=== PATIENT | male | born 1965 | race Caucasian/White ===

== ENCOUNTER 2018-04-30 09:19 | Outpatient (REF) | payer BC, SELFPAY ==
[2018-04-30 18:52] LABS: TSH (W/Ref FT4) 0.22 uIU/mL (0.358-3.74)
[2018-04-30 19:14] LABS: FREE T4 1.44 ng/dL (0.76-1.46)
== END 2018-04-30 09:20 ==
LOC: NCHCN 09:19
PROVIDERS: PCP Family Medicine; Visit Provider Family Medicine
DX: E03.9 Hypothyroidism, unspecified (principal)
CPT/HCPCS: 84439; 84443

== ENCOUNTER 2018-08-14 09:17 | Outpatient (CLI) | payer BC, SELFPAY ==
[2018-08-14 10:55] LABS: HCT 41.9 % (40.0-50.0); HGB 14.1 g/dL (13.5-17.5); Mean Corp. HGB Concentration 33.7 g/dL (32.0-36.0); Mean Corpuscular Volume 92.1 fL (80-95); Mean Platelet Volume 10.3 fL (8.0-11.0); Platelet Count 244 x1000/uL (130-400); RBC 4.55 m/cumm (4.50-6.00); RBC Distribution Width 13.7 % (11.8-14.1); White Blood Cell Count 7.05 k/cumm (4.4-10.8)
[2018-08-14 10:58] LABS: Bilirubin Negative (Negative); Blood Negative (Negative); Clarity Clear; Glucose Negative (Negative); Ketones Negative (Negative); Leukocyte Esterase Negative (Negative); Nitrite Negative (Negative); Urobilinogen 0.2 EU/dL (Up TO 0.2); pH 6.5 (5-8)
[2018-08-14 11:42] LABS: Cholesterol 167 mg/dL (50-200)
[2018-08-14 11:44] LABS: ALT 38 U/L (12-78); AST 22 U/L (15-37); Albumin 4.2 g/dL (3.4-5.0); Alkaline Phosphatase 104 U/L (46-116); Anion Gap 6.4 mmol/L (3-11); BUN 21 mg/dL (7-18); Bilirubin, Total 0.9 mg/dL (0.2-1.0); CO2 29.6 mmol/L (21.0-32.0); CREATININE 1.22 mg/dL (0.70-1.30); Calcium 9.4 mg/dL (8.5-10.1); Chloride 98 mmol/L (98-107); Glucose 106 mg/dL (70-100); Magnesium 1.6 mg/dL (1.8-2.4); Sodium 134 mmol/L (136-145); Total Protein 7.6 g/dL (6.4-8.2)
[2018-08-14 11:55] LABS: PHOSPHORUS 3.6 mg/dL (2.6-4.7); Uric Acid 5.7 mg/dL (3.5-7.2)
[2018-08-15 11:16] LABS: PROTEIN < 6.0 mg/dL
[2018-08-15 11:18] LABS: COMMENT (LAB VIEW ONLY) 63.54 mg/dL
[2018-08-16 13:20] LABS: Tacrolimus 7.6 ng/ml
== END 2018-08-14 09:37 ==
PROVIDERS: PCP Family Medicine; Visit Provider Internal Medicine Nephrology
DX: Z29.8 Encounter for other specified prophylactic measures (principal); Z94.0 Kidney transplant status; Z79.899 Other long term (current) drug therapy
CPT/HCPCS: 36415; 80053; 85027; 80197; 81003; 82465; 82565; 83735; 84100; 84156; 84550

== ENCOUNTER 2018-10-28 02:22 | Outpatient (CLI) | payer BC, SELFPAY ==
--- NOTE | 2018-10-28 10:00 | PFT_ITS ---
DATE OF SERVICE: 10/28/18 REQUESTING PROVIDER: Anna Mullen M.D. Spirometry shows no evidence of obstructive airways disease, no bronchodilator response. Lung volumes show no evidence of restriction. Diffusion capacity normal. Airways resistance normal. IMPRESSION: Normal pulmonary function study. Clinical correlation recommended. METHYLCHOLINE CHALLENGE TEST REPORT DATE OF SERVICE: 10/28/18 Good patient effort. After normal spirometry, methylcholine challenge testing was carried out up to a methylcholine concentration of 1 mg per mL. At that point, the patient had a 20% drop in FEV1. IMPRESSION: This is a strongly positive methylcholine challenge test. Clinical correlation recommended.
--- NOTE | 2018-10-28 11:30 | PFT_ITS ---
METHYLCHOLINE CHALLENGE TEST REPORT DATE OF SERVICE: 10/28/18 Good patient effort. After normal spirometry, methylcholine challenge testing was carried out up to a methylcholine concentration of 1 mg per mL. At that point, the patient had a 20% drop in FEV1. IMPRESSION: This is a strongly positive methylcholine challenge test. Clinical correlation recommended.
[2018-10-28] MEDS: Inhaler, Assist Device 1 EACH MC (14:49)
[2018-10-28] MEDS: Albuterol HFA 18 GM 200 PUFF INH IH (14:49)
[2018-10-28] MEDS: Methacholine 100 MG VIAL IH (14:49)
== END 2018-10-28 02:42 ==
PROVIDERS: PCP Family Medicine; Visit Provider Family Medicine
DX: R06.09 Other forms of dyspnea (principal)
CPT/HCPCS: 94060; 94150; 94726; 94729; 95070; 94010; J7674

== ENCOUNTER 2018-12-11 08:20 | Outpatient (CLI) | payer BC, SELFPAY ==
[2018-12-11 10:13] LABS: HCT 41.8 % (40.0-50.0); HGB 14.4 g/dL (13.5-17.5); Mean Corp. HGB Concentration 34.4 g/dL (32.0-36.0); Mean Corpuscular Hemoglobin 30.8 pg (27.0-33.0); Mean Corpuscular Volume 89.3 fL (80-95); Mean Platelet Volume 10.4 fL (8.0-11.0); Platelet Count 235 x1000/uL (130-400); RBC 4.68 m/cumm (4.50-6.00); RBC Distribution Width 13.3 % (11.8-14.1)
[2018-12-11 10:57] LABS: ALT 36 U/L (12-78); AST 23 U/L (15-37); Albumin 3.9 g/dL (3.4-5.0); Alkaline Phosphatase 117 U/L (46-116); Amylase 48 U/L (25-115); Anion Gap 9.3 mmol/L (3-11); BUN 17 mg/dL (7-18); Bilirubin, Total 0.9 mg/dL (0.2-1.0); CO2 26.7 mmol/L (21.0-32.0); CREATININE 1.07 mg/dL (0.70-1.30); Chloride 99 mmol/L (98-107); Glucose 109 mg/dL (70-100); Lipase 84 U/L (73-393); Magnesium 1.6 mg/dL (1.8-2.4); PHOSPHORUS 3.5 mg/dL (2.6-4.7); Potassium 5.1 mmol/L (3.5-5.1); Sodium 135 mmol/L (136-145); Total Protein 7.3 g/dL (6.4-8.2); Uric Acid 5.9 mg/dL (3.5-7.2)
[2018-12-11 11:06] LABS: Bilirubin Negative (Negative); Blood Negative (Negative); Clarity Clear; Glucose Negative (Negative); Ketones Negative (Negative); Leukocyte Esterase Negative (Negative); Nitrite Negative (Negative); Specific Gravity 1.015 (1.005-1.025); pH 6.5 (5-8)
[2018-12-11 11:27] LABS: Cholesterol 162 mg/dL (50-200); Triglyceride 94 mg/dL (30-150)
[2018-12-12 10:18] LABS: Hemoglobin A1C 5.8 % (4.5-6.2)
[2018-12-12 13:50] LABS: PROTEIN < 6.0 mg/dL
[2018-12-12 14:15] LABS: COMMENT (LAB VIEW ONLY) 46.78 mg/dL
[2018-12-13 14:26] LABS: Tacrolimus 7.7 ng/ml
== END 2018-12-11 08:40 ==
PROVIDERS: PCP Family Medicine; Visit Provider Internal Medicine Nephrology
DX: R55 Syncope and collapse (principal); E03.9 Hypothyroidism, unspecified; I10 Essential (primary) hypertension; Z29.8 Encounter for other specified prophylactic measures; Z94.83 Pancreas transplant status; Z79.899 Other long term (current) drug therapy
CPT/HCPCS: 36415; 80053; 83690; 85027; 80197; 81003; 82150; 82465; 82565; 83036; 83735; 84100; 84156; 84439; 84443; 84478; 84550

== ENCOUNTER 2018-12-20 00:20 | Outpatient (CLI) | payer BC, SELFPAY ==
--- NOTE | 2018-12-20 08:18 | DI.MRI_ITS ---
SYMPTOMS/DIAGNOSIS: SHOULDER PAIN, M25.511 MRI OF THE RIGHT SHOULDER: The only plain films available are a chest x-ray from 2017. The exam is limited by claustrophobia. Proton density and fat-suppressed T2 axial and fat- suppressed T2 coronal sequences were performed. The patient was unable to continue with the exam. There is fluid seen in the glenohumeral joint, as well as in the subcoracoid bursa. There is lateral downsloping of the acromion. There is thickening of the supraspinatus tendon throughout, suspicious for severe tendinitis versus partial tear. The upper biceps tendon appears severely thickened. There is also an apparent disruption of the biceps tendon in the region of the bicipital groove. The infraspinatus, subscapularis and teres minor tendons appear intact. There are degenerative changes of the superior labrum. IMPRESSION: 1. Tear of the long head of the biceps tendon with disruption over several centimeters. 2. Marked thickening of the supraspinatus tendon without evidence of a full-thickness tear. 3. Joint effusion.
== END 2018-12-20 00:40 ==
PROVIDERS: PCP Family Medicine; Visit Provider Specialist/Technologist Athletic Trainer
DX: M25.511 Pain in right shoulder (principal); S46.211A Strain of muscle, fascia and tendon of other parts of biceps, right arm, initial encounter; M25.411 Effusion, right shoulder
CPT/HCPCS: 73221

== ENCOUNTER 2018-12-27 21:07 | Emergency (ER) | payer BC, SELFPAY ==
[2018-12-27] VITALS (7 sets, daily range): BP systolic 134–166; BP diastolic 80–89; PULSE 72–76; RESP 15–25; TEMP 36.5–37; O2SAT 96–98
--- NOTE | 2018-12-27 21:21 | W.ED.GENAD ---
Discharge Plan Disposition Patient Disposition: HOME Condition: Stable Discharge Details Chief Complaint: Chest Pain Clinical Impression: Chest pain Primary Care Provider: Anna Mullen V ED Provider: Eriberto Esparza Home Meds and New Rx's Prescriptions: No Action lidocaine [Lidoderm] 5 % adhesive patch,medicated 1 patch TP DAILY RF: 0 valacyclovir 1 gram tablet 2,000 mg PO BID RF: 0 polyethylene glycol 3350 [Miralax] 17 gram/dose powder 17 gm PO DAILY RF: 0 omega-3 fatty acids [Fish Oil Concentrate] 1,000 mg capsule 1,000 mg PO DAILY RF: 0 multivitamin [Daily Multi-Vitamin] 1 EACH tablet 1 ea PO DAILY RF: 0 levothyroxine 175 MCG tablet 150 mcg PO DAILY RF: 0 mycophenolate mofetil [CellCept] 250 MG capsule 250 mg PO 2 CAPS BID RF: 0 aspirin [Aspirin Low-Strength] 81 MG tablet,chewable 81 mg PO DAILY RF: 0 trazodone 50 MG tablet 50 mg PO HS RF: 0 magnesium gluconate 27 MG tablet 27 mg PO DAILY RF: 0 tacrolimus [Prograf] 1 MG capsule 2 mg PO BID RF: 0 venlafaxine 150 MG tablet extended release 24hr 150 mg PO DAILY RF: 0 lisinopril 20 mg tablet 30 mg PO DAILY RF: 0 pantoprazole 40 MG tablet,delayed release (DR/EC) 40 mg PO BID RF: 0 gabapentin 300 MG capsule 300 mg PO QAM RF: 0 gabapentin 300 MG capsule 600 mg PO HS RF: 0 ondansetron 4 MG tablet,disintegrating 4 mg PO Q6H PRN PRN (Reason: Nausea / Vomiting) Qty: 20 RF: 0 acetaminophen [Tylenol] 325 MG tablet 650 mg PO Q4H PRN PRNRF: 0 albuterol sulfate 2.5 MG/3 ML solution for nebulization 2.5 mg UPD Q2H PRN PRNRF: 0 polyethylene glycol 3350 17 GM powder in packet 17 gm PO DAILY PRN PRN (Reason: Constipation) RF: 0 acyclovir sodium 500 MG solution 1,000 mg IVPB Q8H RF: 0 doxycycline hyclate [Doxy-100] 100 MG recon soln 100 mg IVPB Q12H RF: 0 benzonatate 100 MG capsule 100 mg PO TID PRNRF: 0 promethazine 25 MG/ML solution 25 mg IVPB Q4H PRN PRNRF: 0 docusate sodium [Colace] 100 MG capsule 100 mg PO TID PRN PRNRF: 0 ceftriaxone in dextrose,iso-os 2 GM/50 ML piggyback 2 gm IVPB HS RF: 0 IV Access 1 EACH Device 1 ea IV DIRECTED RF: 0 Discharge Instructions Instructions: Chest Pain (ED) Additional Instructions: Your lab work and ct did not show any concerning findings follow up as scheduled with cardiology if you have severe worsening symptoms, persistent vomit or feel more ill return to the emergency department Medical Decision Making 53 yo male with hx of HTN, DM, pancreas transplant who comes in with complaints of stabbing anterior sharp chest pain that has now resolved. HAs also had months of shortness of breath, had PFT's done a few months ago which were normal. He states he was at home when he started to have anterior sharp chest pain, denies any pain now. Denies n/v or shortness of breath. ECG normal here, will send troponin. Heart score is 3. Given his shortness of breath, wells score moderate as Pe as likely as other diagnoses, will obtian CTA. no tearing back pain so doubt dissection pt's labs unremarkable, cta negative. given low heart score feel he is stable for out patient management and had pain over 3 hours so do not feel repeat testing indicated. Advised f/u with pcp and he states he has an appt with cardiology next week, return precautions iven Differential Diagnosis acs, PE, dissection Medical Records Medical records reviewed: Yes I reviewed the patient's medical records. Imaging Data Radiologic Study: Attestation: I personally reviewed and interpreted this imaging study as follows: Imaging: CT Scan Radiologist's impression: IMPRESSION: No acute findings. Lab Data Lab results reviewed: Yes I reviewed the patient's lab results. ECG Data Attestation: I personally reviewed and interpreted this ECG (s) as follows: Prior ECG tracings: not available for review Interpretation: sinus rhythm, rate of 72, pr 190, no acute st twave ischemic findings HPI General Mode of arrival: EMS. Date/Time Provider Initiated Documentation: 12/27/18 21:10. Limitations to Documentation: no limitations. Information obtained by: patient. History of Present Illness 53 year old M presents to the emergency department with the chief complaint of chest pain, described as moderate, Quality is described as stabbing, and is localized to the chest. and it has been now resolved. No relieving factors improve symptom(s), No exacerbating factors reported . Patient notes no other symptoms.. Patient did receive the following treatments prior to arrival, none Related Data Home Medications Medication Instructions Recorded Confirmed aspirin [Aspirin Low-Strength] 81 mg PO DAILY tab-cap 08/21/14 10/12/17 levothyroxine 150 mcg PO DAILY tab-cap 08/21/14 10/12/17 multivitamin [Daily Multi-Vitamin] 1 ea PO DAILY 08/21/14 10/12/17 mycophenolate mofetil [CellCept] 250 mg PO 2 CAPS BID tab-cap 08/21/14 10/12/17 magnesium gluconate 27 mg PO DAILY 10/12/14 10/12/17 trazodone 50 mg PO HS tab-cap 10/12/14 10/12/17 gabapentin 300 mg PO QAM 05/15/16 10/12/17 pantoprazole 40 mg PO BID 05/15/16 10/12/17 tacrolimus [Prograf] 2 mg PO BID 07/22/17 10/12/17 venlafaxine 150 mg PO DAILY tab-cap 07/22/17 10/12/17 IV Access 1 ea IV DIRECTED device 07/31/17 10/12/17 acetaminophen [Tylenol] 650 mg PO Q4H PRN PRN tab 07/31/17 10/12/17 acyclovir sodium 1,000 mg IVPB Q8H vial 07/31/17 10/12/17 albuterol sulfate 2.5 mg UPD Q2H PRN PRN vial 07/31/17 10/12/17 benzonatate 100 mg PO TID PRN cap 07/31/17 10/12/17 ceftriaxone in dextrose,iso-os 2 gm IVPB HS bag 07/31/17 10/12/17 docusate sodium [Colace] 100 mg PO TID PRN PRN cap 07/31/17 10/12/17 doxycycline hyclate [Doxy-100] 100 mg IVPB Q12H vial 07/31/17 10/12/17 polyethylene glycol 3350 17 gm PO DAILY PRN PRN packet 07/31/17 10/12/17 promethazine 25 mg IVPB Q4H PRN PRN vial 07/31/17 10/12/17 gabapentin 600 mg PO HS 10/12/17 10/12/17 ondansetron 4 mg PO Q6H PRN PRN #20 tab.rapdis 10/12/17 lidocaine 5 % topical patch 1 patch TP DAILY 10/18/18 10/18/18 lisinopril 20 mg tablet 30 mg PO DAILY tab-cap 10/18/18 10/18/18 omega-3 fatty acids 1,000 mg 1,000 mg PO DAILY 10/18/18 10/18/18 capsule polyethylene glycol 3350 17 17 gm PO DAILY 10/18/18 10/18/18 gram/dose oral powder valacyclovir 1 gram tablet 2,000 mg PO BID tab 10/18/18 10/18/18 Previous Rx's Medication Instructions Recorded IV Access 1 ea IV DIRECTED device 07/31/17 acetaminophen [Tylenol] 650 mg PO Q4H PRN PRN tab 07/31/17 acyclovir sodium 1,000 mg IVPB Q8H vial 07/31/17 albuterol sulfate 2.5 mg UPD Q2H PRN PRN vial 07/31/17 benzonatate 100 mg PO TID PRN cap 07/31/17 ceftriaxone in dextrose,iso-os 2 gm IVPB HS bag 07/31/17 docusate sodium [Colace] 100 mg PO TID PRN PRN cap 07/31/17 doxycycline hyclate [Doxy-100] 100 mg IVPB Q12H vial 07/31/17 polyethylene glycol 3350 17 gm PO DAILY PRN PRN packet 07/31/17 promethazine 25 mg IVPB Q4H PRN PRN vial 07/31/17 ondansetron 4 mg PO Q6H PRN PRN #20 tab.rapdis 10/12/17 Allergies Allergy/AdvReac Type Severity Reaction Status Date / Time metoclopramide HCl Allergy Intermediate TARDIIVE Unverified 10/12/17 06:23 [From Reglan] DYSKINESIA oxycodone HCl [From Percocet] Allergy Intermediate Unverified 10/12/17 06:23 simvastatin [From Zocor] Allergy Intermediate MYOCLONUS Unverified 10/12/17 06:23 esomeprazole magnesium AdvReac Diarrhea Unverified 10/12/17 06:23 [From Nexium] DIMOTROPE Allergy Mild Uncoded 10/12/17 06:23 ORNADE DIMOTROPE Allergy Unknown Uncoded 10/12/17 06:23 General Stated Complaint: Chest Pain ROBIN: 2 Review of Systems Review of Systems All systems reviewed & are unremarkable except as noted in HPI and below Constitutional Denies chills, Denies fever(s) and Denies weakness ENT Denies change in voice Cardiovascular Denies dyspnea Respiratory Denies cough and Denies dyspnea Gastrointestinal Denies abdominal pain, Denies nausea and Denies vomiting Genitourinary Denies dysuria Musculoskeletal Denies joint swelling Integumentary/Breasts Denies rash Neurologic Denies weakness [facility] Medical History Dizziness (Acute) Lumbar back pain (Acute) Right shoulder pain (Acute) Dyspnea on exertion (Chronic) Gastroparesis (Chronic) Hernia (Chronic) Left hemiparesis (Chronic) Depression HTN (hypertension) History of CVA (cerebrovascular accident) History of diabetes mellitus Hypothyroidism (acquired) Migraine Pancreas transplanted Surgical History History of pancreas transplant (Resolved) Social History Smoking/Tobacco Use Status: Never Alcohol Intake: never Drug use: Never Substance use type: does not use Do you feel safe in your relationship?: Yes Exam Const General: no acute distress Orientation: alert HENFL Head: normal to inspection Ears: external ears normal General nose exam: external nose normal Mouth: moist mucous membranes Eyes General: appearance normal, both eyes and all related structures Neck Neck: normal visual inspection Resp Effort & Inspection: normal respiratory effort and able to speak in complete sentences Cardio Rate: regular rate Skin General skin exam: no rashes or lesions noted Neuro General: alert and oriented x3 Extrem General: normal to inspection Psych Mental Status: mental status grossly normal Course Vital Signs Temperature 37.0 C 12/27/18 21:11 Pulse 72 12/27/18 21:11 Respiratory Rate 12/27/18 21:11 Blood Pressure 166/89 H 12/27/18 21:11 Pulse Oximetry 98 12/27/18 21:11 Temperature 37.0 C 12/27/18 21:11 Pulse 72 12/27/18 21:11 Respiratory Rate 12/27/18 21:11 Respiratory Effort 12/27/18 21:16 Blood Pressure 166/89 H 12/27/18 21:11 Blood Pressure Position Sitting 12/27/18 21:11 Pulse Oximetry 98 12/27/18 21:11 Oxygen Delivery Method Room Air 12/27/18 21:11 Oxygen Flow Rate 0 12/27/18 21:11 Pain Level 0 12/27/18 21:11
[2018-12-27 21:26] LABS: Abs Immature Grans 0.03 k/cumm (0.0-0.09); Absolute Basophil Count 0.03 k/cumm (0.0-0.2); Absolute Eosinophil Count 0.18 k/cumm (0.0-0.7); Absolute Lymphocyte Count 3.38 k/cumm (1.2-3.4); Absolute Monocyte Count 0.72 k/cumm (0.11-0.7); Absolute Neutrophil Count 3.24 k/cumm (1.2-6.7); Basophils % 0.4; Eosinophils % 2.4; HCT 41.4 % (40.0-50.0); HGB 14.5 g/dL (13.5-17.5); Immature Grans % 0.4; Lymphocytes % 44.6; Mean Corpuscular Volume 88.7 fL (80-95); Mean Platelet Volume 10.2 fL (8.0-11.0); Monocytes % 9.5; Neutrophils % 42.7; Platelet Count 244 x1000/uL (130-400); RBC 4.67 m/cumm (4.50-6.00); RBC Distribution Width 13.6 % (11.8-14.1); White Blood Cell Count 7.58 k/cumm (4.4-10.8)
[2018-12-27 21:39] LABS: PTT Activated 23.9 sec (21.0-31.4); Prothrombin Time 9.8 sec (9.3-11.0)
[2018-12-27 21:40] LABS: Lipase 104 U/L (73-393); Magnesium 1.8 mg/dL (1.8-2.4); NT-proBNP 22 pg/mL
[2018-12-27 21:42] LABS: Troponin I < 0.02 ng/mL (0.00-0.06)
--- NOTE | 2018-12-27 21:55 | DI.CT_ITS ---
SYMPTOMS/DIAGNOSIS: SHORTNESS OF BREATH, CHEST PAIN CTA OF THE CHEST: CT angiography was performed with multi slice acquisition and multi planar and 3D reconstruction. CTA of the chest was performed according to the pulmonary embolus protocol. No central pulmonary embolus is identified. The thoracic aorta is of normal caliber. No aneurysm or dissection is seen. The heart size is within normal limits. No significant pericardial effusion is seen. No evidence of right ventricular dysfunction is present. There are coronary artery calcifications. No significant thoracic adenopathy, pleural effusion or pneumothorax is identified. No pulmonary infiltrates are seen. The tracheobronchial tree is unremarkable. No acute upper abdominal images are seen. Degenerative changes are present in the spine. IMPRESSION: No evidence of a pulmonary embolus, thoracic aortic dissection or aneurysm.
[2018-12-27] MEDS: Omnipaque 350 MG/ML 100 ML BTL IJ (22:01)
[2018-12-27] MEDS: Normal Saline Flush 10 ML SYR IVP (22:02)
--- NOTE | 2018-12-27 22:26 | DI.VRAD_ITS ---
EXAM: CT Angiography Chest With Contrast EXAM DATE/TIME: 12/27/2018 9:11 PM CLINICAL HISTORY: 53 years old, male; Pain and signs and symptoms; Shortness of breath; Radiating; Prior surgery; Surgery date: 6+ months; Surgery type: Pancrease transplant; Patient HX: SOB for a few days and chest pain tonight TECHNIQUE: Imaging protocol: Axial computed tomographic angiography images of the chest with intravenous contrast using CT angiography protocol. Coronal and sagittal reformatted images were created and reviewed. 3D rendering: MIP reconstructed images were created and reviewed. Radiation optimization: All CT scans at this facility use at least one of these dose optimization techniques: automated exposure control; mA and/or kV adjustment per patient size (includes targeted exams where dose is matched to clinical indication); or iterative reconstruction. Contrast material: OMNIPAQUE 350; Contrast volume: 88 ml; Contrast route: IV RAC; COMPARISON: CR CHEST 2 VIEWS PA,LAT 07/26/2017 8:23 PM FINDINGS: Pulmonary arteries: Unremarkable. No obvious pulmonary emboli. Aorta: Unremarkable. No aortic aneurysm. No aortic dissection. Lungs: Unremarkable. No consolidation. No masses. No suspicious nodules. Pleural space: Unremarkable. No pneumothorax. No pleural effusion. Heart: Unremarkable. No pericardial effusion. No obvious heart strain. Lymph nodes: Unremarkable. No enlarged lymph nodes. Bones/joints: Unremarkable. No acute fracture. Soft tissues: Unremarkable. IMPRESSION: No acute findings. Dictated and Authenticated by: Geoffrey Wallace MD. Ordering:KARELY Wei MD
== END 2018-12-27 23:10 | disposition home or self-care (01) ==
PROVIDERS: Emergency Provider Emergency Medicine; PCP Family Medicine
DX: R07.9 Chest pain, unspecified (principal); R06.02 Shortness of breath; I10 Essential (primary) hypertension; E10.9 Type 1 diabetes mellitus without complications
CPT/HCPCS: 36415; 71275; 83690; 93005; 99285; 83735; 83880; 84484; 85025; 85610; 85730; 93010; J3490

== ENCOUNTER 2019-01-13 15:19 | Emergency (ER) | payer BC, SELFPAY ==
[2019-01-13 15:23] VITALS: BP 167/91; PULSE 87; RESP 20; TEMP 36.8; O2SAT 100
--- NOTE | 2019-01-13 15:52 | DI.RAD_ITS ---
SYMPTOM/DIAGNOSIS: LT HIP PAIN, LEG LENGTH DISCREPANCY LEFT HIP AND PELVIS: No fracture or dislocation is seen. There is mild acetabular spurring. There are severe degenerative changes at L 4-5 and L 5-S 1. IMPRESSION: Degenerative changes. No acute abnormality.
--- NOTE | 2019-01-13 16:01 | W.ED.GENAD ---
Discharge Plan Disposition Patient Disposition: HOME Condition: Improving Discharge Details Chief Complaint: Orthopedic Clinical Impression: Strain of left hip Primary Care Provider: Anna Mullen V ED Provider: Shaji Campbell Home Meds and New Rx's Prescriptions: Continued lidocaine [Lidoderm] 5 % adhesive patch,medicated 1 patch TP DAILY RF: 0 valacyclovir 1 gram tablet 2,000 mg PO BID RF: 0 polyethylene glycol 3350 [Miralax] 17 gram/dose powder 17 gm PO DAILY RF: 0 omega-3 fatty acids [Fish Oil Concentrate] 1,000 mg capsule 1,000 mg PO DAILY RF: 0 multivitamin [Daily Multi-Vitamin] 1 EACH tablet 1 ea PO DAILY RF: 0 levothyroxine 175 MCG tablet 150 mcg PO DAILY RF: 0 mycophenolate mofetil [CellCept] 250 MG capsule 250 mg PO 2 CAPS BID RF: 0 aspirin [Aspirin Low-Strength] 81 MG tablet,chewable 81 mg PO DAILY RF: 0 trazodone 50 MG tablet 50 mg PO HS RF: 0 magnesium gluconate 27 MG tablet 27 mg PO DAILY RF: 0 tacrolimus [Prograf] 1 MG capsule 2 mg PO BID RF: 0 venlafaxine 150 MG tablet extended release 24hr 150 mg PO DAILY RF: 0 lisinopril 20 mg tablet 30 mg PO DAILY RF: 0 pantoprazole 40 MG tablet,delayed release (DR/EC) 40 mg PO BID RF: 0 gabapentin 300 MG capsule 300 mg PO QAM RF: 0 gabapentin 300 MG capsule 600 mg PO HS RF: 0 ondansetron 4 MG tablet,disintegrating 4 mg PO Q6H PRN PRN (Reason: Nausea / Vomiting) Qty: 20 RF: 0 acetaminophen [Tylenol] 325 MG tablet 650 mg PO Q4H PRN PRNRF: 0 albuterol sulfate 2.5 MG/3 ML solution for nebulization 2.5 mg UPD Q2H PRN PRNRF: 0 polyethylene glycol 3350 17 GM powder in packet 17 gm PO DAILY PRN PRN (Reason: Constipation) RF: 0 acyclovir sodium 500 MG solution 1,000 mg IVPB Q8H RF: 0 doxycycline hyclate [Doxy-100] 100 MG recon soln 100 mg IVPB Q12H RF: 0 benzonatate 100 MG capsule 100 mg PO TID PRNRF: 0 promethazine 25 MG/ML solution 25 mg IVPB Q4H PRN PRNRF: 0 docusate sodium [Colace] 100 MG capsule 100 mg PO TID PRN PRNRF: 0 ceftriaxone in dextrose,iso-os 2 GM/50 ML piggyback 2 gm IVPB HS RF: 0 IV Access 1 EACH Device 1 ea IV DIRECTED RF: 0 Discharge Instructions Instructions: Muscle Strain (ED) Additional Instructions: Please follow-up with physical therapy as prescribed. Rest and use of crutches if needed over the next 2 days. Tylenol if needed for pain. Lidoderm patch as we discussed. Return for any acute concerns Stand Alone Forms: Physical Therapy Referral, Work Release Medical Decision Making Pleasant 53-year-old male who has a history of childhood stroke with residual left-sided weakness and left foot drop. 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 Up and down the stairs yesterday with external rotation of the hip in a repeated fashion. Awakened last night with left hip pain. X-rays today show degenerative disease but no acute findings. Discussed with patient a course of rest with crutches for 2 days, off work, follow-up with physical therapy as he does have chronic spasticity and gait instability. We will try Lidoderm patch at home. Stable for discharge at this time. HPI General Mode of arrival: ambulatory. Date/Time Provider Initiated Documentation: 01/13/19 15:40. Limitations to Documentation: no limitations. Information obtained by: patient. History of Present Illness 53 year old M presents to the emergency department with the chief complaint of Left hip pain, childhood stroke with residual left-sided weakness , Quality is described as aching and dull, and is localized to the left and lower extremity. Patient reports no radiation. Patient started experiencing this day(s) and it has been intermittent. Rest improves symptom(s), Movement worsens symptoms . Patient notes no other symptoms.. Patient did receive the following treatments prior to arrival, none Related Data Home Medications Medication Instructions Recorded Confirmed aspirin [Aspirin Low-Strength] 81 mg PO DAILY tab-cap 08/21/14 10/12/17 levothyroxine 150 mcg PO DAILY tab-cap 08/21/14 10/12/17 multivitamin [Daily Multi-Vitamin] 1 ea PO DAILY 08/21/14 10/12/17 mycophenolate mofetil [CellCept] 250 mg PO 2 CAPS BID tab-cap 08/21/14 10/12/17 magnesium gluconate 27 mg PO DAILY 10/12/14 10/12/17 trazodone 50 mg PO HS tab-cap 10/12/14 10/12/17 gabapentin 300 mg PO QAM 05/15/16 10/12/17 pantoprazole 40 mg PO BID 05/15/16 10/12/17 tacrolimus [Prograf] 2 mg PO BID 07/22/17 10/12/17 venlafaxine 150 mg PO DAILY tab-cap 07/22/17 10/12/17 IV Access 1 ea IV DIRECTED device 07/31/17 10/12/17 acetaminophen [Tylenol] 650 mg PO Q4H PRN PRN tab 07/31/17 10/12/17 acyclovir sodium 1,000 mg IVPB Q8H vial 07/31/17 10/12/17 albuterol sulfate 2.5 mg UPD Q2H PRN PRN vial 07/31/17 10/12/17 benzonatate 100 mg PO TID PRN cap 07/31/17 10/12/17 ceftriaxone in dextrose,iso-os 2 gm IVPB HS bag 07/31/17 10/12/17 docusate sodium [Colace] 100 mg PO TID PRN PRN cap 07/31/17 10/12/17 doxycycline hyclate [Doxy-100] 100 mg IVPB Q12H vial 07/31/17 10/12/17 polyethylene glycol 3350 17 gm PO DAILY PRN PRN packet 07/31/17 10/12/17 promethazine 25 mg IVPB Q4H PRN PRN vial 07/31/17 10/12/17 gabapentin 600 mg PO HS 10/12/17 10/12/17 ondansetron 4 mg PO Q6H PRN PRN #20 tab.rapdis 10/12/17 lidocaine 5 % topical patch 1 patch TP DAILY 10/18/18 10/18/18 lisinopril 20 mg tablet 30 mg PO DAILY tab-cap 10/18/18 10/18/18 omega-3 fatty acids 1,000 mg 1,000 mg PO DAILY 10/18/18 10/18/18 capsule polyethylene glycol 3350 17 17 gm PO DAILY 10/18/18 10/18/18 gram/dose oral powder valacyclovir 1 gram tablet 2,000 mg PO BID tab 10/18/18 10/18/18 Previous Rx's Medication Instructions Recorded IV Access 1 ea IV DIRECTED device 07/31/17 acetaminophen [Tylenol] 650 mg PO Q4H PRN PRN tab 07/31/17 acyclovir sodium 1,000 mg IVPB Q8H vial 07/31/17 albuterol sulfate 2.5 mg UPD Q2H PRN PRN vial 07/31/17 benzonatate 100 mg PO TID PRN cap 07/31/17 ceftriaxone in dextrose,iso-os 2 gm IVPB HS bag 07/31/17 docusate sodium [Colace] 100 mg PO TID PRN PRN cap 07/31/17 doxycycline hyclate [Doxy-100] 100 mg IVPB Q12H vial 07/31/17 polyethylene glycol 3350 17 gm PO DAILY PRN PRN packet 07/31/17 promethazine 25 mg IVPB Q4H PRN PRN vial 07/31/17 ondansetron 4 mg PO Q6H PRN PRN #20 tab.rapdis 10/12/17 Allergies Allergy/AdvReac Type Severity Reaction Status Date / Time metoclopramide HCl Allergy Intermediate TARDIIVE Unverified 01/13/19 15:25 [From Reglan] DYSKINESIA oxycodone HCl [From Percocet] Allergy Intermediate Unverified 01/13/19 15:25 simvastatin [From Zocor] Allergy Intermediate MYOCLONUS Unverified 01/13/19 15:25 esomeprazole magnesium AdvReac Diarrhea Unverified 01/13/19 15:25 [From Nexium] DIMOTROPE Allergy Mild Uncoded 01/13/19 15:25 ORNADE DIMOTROPE Allergy Unknown Uncoded 01/13/19 15:25 General Stated Complaint: Orthopedic ROBIN: 3 Review of Systems Review of Systems No recent illness, no change to bowel or bladder habits. No fall or injury. 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, 8 systems reviewed and otherwise negative [facility] Medical History Dizziness (Acute) Lumbar back pain (Acute) Right shoulder pain (Acute) Dyspnea on exertion (Chronic) Gastroparesis (Chronic) Hernia (Chronic) Left hemiparesis (Chronic) Depression HTN (hypertension) History of CVA (cerebrovascular accident) History of diabetes mellitus Hypothyroidism (acquired) Migraine Pancreas transplanted Surgical History History of pancreas transplant (Resolved) Social History Smoking/Tobacco Use Status: Never Alcohol Intake: never Drug use: Never Substance use type: does not use Do you feel safe in your relationship?: Yes Exam Narrative Exam Narrative: GEN: awake, alert, oriented 3. Pleasant, well groomed, interactive. HEAD: Normocephalic, atraumatic ENT: Mucous membranes moist, oropharynx unremarkable, External ear exam unremarkable EYES: PERRL, EOMI NECK: Full ROM, no RANDOLPH, no menigismus CHEST/RESP: Nontender, clear to auscultation bilateral, no wheeze/rhonchi/rales CARDIOVASCULAR: RRR, no murmur, rub ketan. 2+ Rad pulse bilateral ABDOMEN: Soft, nontender, no mass. +Bowel sounds EXT: The left upper and lower extremity are tight with slight spasm/spasticity and muscle wasting throughout. Motor graded 4 out of 5 in left upper and lower extremity. Exception would be dorsiflexion of the left foot which is weak. 5 out of 5 in the lower extremity. Sensation is intact throughout including saddle distribution. Patient Neuro: Grossly normal neurologic exam, conversant, interactive. Psych: Speech fluent, thoughts congruent, affect normal Course Vital Signs Temperature 36.8 C 01/13/19 15:23 Pulse 87 01/13/19 15:23 Respiratory Rate 20 01/13/19 15:23 Blood Pressure 167/91 H 01/13/19 15:23 Pulse Oximetry 100 01/13/19 15:23 Temperature 36.8 C 01/13/19 15:23 Temperature Source Temporal Artery Scan 01/13/19 15:23 Pulse 87 01/13/19 15:23 Respiratory Rate 20 01/13/19 15:23 Respiratory Effort Non-Labored 01/13/19 15:23 Blood Pressure 167/91 H 01/13/19 15:23 Pulse Oximetry 100 01/13/19 15:23 Oxygen Delivery Method Room Air 01/13/19 15:23 Oxygen Flow Rate 0 01/13/19 15:23 Pain Level 10 01/13/19 15:23
--- NOTE | 2019-01-13 16:04 | ED.GENADUL_ITS ---
Discharge Plan Disposition Patient Disposition: HOME Condition: Improving Discharge Details Chief Complaint: Orthopedic Clinical Impression: Strain of left hip Primary Care Provider: Anna Mullen V ED Provider: Shaji Campbell Home Meds and New Rx's Prescriptions: Continued lidocaine [Lidoderm] 5 % adhesive patch,medicated 1 patch TP DAILY RF: 0 valacyclovir 1 gram tablet 2,000 mg PO BID RF: 0 polyethylene glycol 3350 [Miralax] 17 gram/dose powder 17 gm PO DAILY RF: 0 omega-3 fatty acids [Fish Oil Concentrate] 1,000 mg capsule 1,000 mg PO DAILY RF: 0 multivitamin [Daily Multi-Vitamin] 1 EACH tablet 1 ea PO DAILY RF: 0 levothyroxine 175 MCG tablet 150 mcg PO DAILY RF: 0 mycophenolate mofetil [CellCept] 250 MG capsule 250 mg PO 2 CAPS BID RF: 0 aspirin [Aspirin Low-Strength] 81 MG tablet,chewable 81 mg PO DAILY RF: 0 trazodone 50 MG tablet 50 mg PO HS RF: 0 magnesium gluconate 27 MG tablet 27 mg PO DAILY RF: 0 tacrolimus [Prograf] 1 MG capsule 2 mg PO BID RF: 0 venlafaxine 150 MG tablet extended release 24hr 150 mg PO DAILY RF: 0 lisinopril 20 mg tablet 30 mg PO DAILY RF: 0 pantoprazole 40 MG tablet,delayed release (DR/EC) 40 mg PO BID RF: 0 gabapentin 300 MG capsule 300 mg PO QAM RF: 0 gabapentin 300 MG capsule 600 mg PO HS RF: 0 ondansetron 4 MG tablet,disintegrating 4 mg PO Q6H PRN PRN (Reason: Nausea / Vomiting) Qty: 20 RF: 0 acetaminophen [Tylenol] 325 MG tablet 650 mg PO Q4H PRN PRNRF: 0 albuterol sulfate 2.5 MG/3 ML solution for nebulization 2.5 mg UPD Q2H PRN PRNRF: 0 polyethylene glycol 3350 17 GM powder in packet 17 gm PO DAILY PRN PRN (Reason: Constipation) RF: 0 acyclovir sodium 500 MG solution 1,000 mg IVPB Q8H RF: 0 doxycycline hyclate [Doxy-100] 100 MG recon soln 100 mg IVPB Q12H RF: 0 benzonatate 100 MG capsule 100 mg PO TID PRNRF: 0 promethazine 25 MG/ML solution 25 mg IVPB Q4H PRN PRNRF: 0 docusate sodium [Colace] 100 MG capsule 100 mg PO TID PRN PRNRF: 0 ceftriaxone in dextrose,iso-os 2 GM/50 ML piggyback 2 gm IVPB HS RF: 0 IV Access 1 EACH Device 1 ea IV DIRECTED RF: 0 Discharge Instructions Instructions: Muscle Strain (ED) Additional Instructions: Please follow-up with physical therapy as prescribed. Rest and use of crutches if needed over the next 2 days. Tylenol if needed for pain. Lidoderm patch as we discussed. Return for any acute concerns Stand Alone Forms: Physical Therapy Referral, Work Release Medical Decision Making Pleasant 53-year-old male who has a history of childhood stroke with residual left-sided weakness and left foot drop. 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 Up and down the stairs yesterday with external rotation of the hip in a repeated fashion. Awakened last night with left hip pain. X-rays today show degenerative disease but no acute findings. Discussed with patient a course of rest with crutches for 2 days, off work, follow-up with [facility]uk[facility] sical therapy as he does have chronic spasticity and gait instability. We will try Lidoderm patch at home. Stable for discharge at this time. HPI General Mode of arrival: ambulatory . Date/Time Provider Initiated Documentation: 01/13/19 15:40 . Limitations to Documentation: no limitations . Information obtained by: patient . History of Present Illness 53 year old M presents to the emergency department with the chief complaint of Left hip pain, childhood stroke with residual left-sided weakness , Quality is described as aching and dull, and is localized to the left and lower extremity. Patient reports no radiation. Patient started experiencing this day(s) and it has been intermittent. Rest improves symptom(s), Movement worsens symptoms . Patient notes no other symptoms.. Patient did receive the following treatments prior to arrival, none Related Data Home Medications Medication Instructions Recorded Confirmed aspirin [Aspirin Low-Strength] 81 mg PO DAILY tab-cap 08/21/14 10/12/17 levothyroxine 150 mcg PO DAILY tab-cap 08/21/14 10/12/17 multivitamin [Daily Multi-Vitamin] 1 ea PO DAILY 08/21/14 10/12/17 mycophenolate mofetil [CellCept] 250 mg PO 2 CAPS BID tab-cap 08/21/14 10/12/17 magnesium gluconate 27 mg PO DAILY 10/12/14 10/12/17 trazodone 50 mg PO HS tab-cap 10/12/14 10/12/17 gabapentin 300 mg PO QAM 05/15/16 10/12/17 pantoprazole 40 mg PO BID 05/15/16 10/12/17 tacrolimus [Prograf] 2 mg PO BID 07/22/17 10/12/17 venlafaxine 150 mg PO DAILY tab-cap 07/22/17 10/12/17 IV Access 1 ea IV DIRECTED device 07/31/17 10/12/17 acetaminophen [Tylenol] 650 mg PO Q4H PRN PRN tab 07/31/17 10/12/17 acyclovir sodium 1,000 mg IVPB Q8H vial 07/31/17 10/12/17 albuterol sulfate 2.5 mg UPD Q2H PRN PRN vial 07/31/17 10/12/17 benzonatate 100 mg PO TID PRN cap 07/31/17 10/12/17 ceftriaxone in dextrose,iso-os 2 gm IVPB HS bag 07/31/17 10/12/17 docusate sodium [Colace] 100 mg PO TID PRN PRN cap 07/31/17 10/12/17 doxycycline hyclate [Doxy-100] 100 mg IVPB Q12H vial 07/31/17 10/12/17 polyethylene glycol 3350 17 gm PO DAILY PRN PRN packet 07/31/17 10/12/17 promethazine 25 mg IVPB Q4H PRN PRN vial 07/31/17 10/12/17 gabapentin 600 mg PO HS 10/12/17 10/12/17 ondansetron 4 mg PO Q6H PRN PRN #20 tab.rapdis 10/12/17 lidocaine 5 % topical patch 1 patch TP DAILY 10/18/18 10/18/18 lisinopril 20 mg tablet 30 mg PO DAILY tab-cap 10/18/18 10/18/18 omega-3 fatty acids 1,000 mg 1,000 mg PO DAILY 10/18/18 10/18/18 capsule polyethylene glycol 3350 17 17 gm PO DAILY 10/18/18 10/18/18 gram/dose oral powder valacyclovir 1 gram tablet 2,000 mg PO BID tab 10/18/18 10/18/18 Previous Rx's Medication Instructions Recorded IV Access 1 ea IV DIRECTED device 07/31/17 acetaminophen [Tylenol] 650 mg PO Q4H PRN PRN tab 07/31/17 acyclovir sodium 1,000 mg IVPB Q8H vial 07/31/17 albuterol sulfate 2.5 mg UPD Q2H PRN PRN vial 07/31/17 benzonatate 100 mg PO TID PRN cap 07/31/17 ceftriaxone in dextrose,iso-os 2 gm IVPB HS bag 07/31/17 docusate sodium [Colace] 100 mg PO TID PRN PRN cap 07/31/17 doxycycline hyclate [Doxy-100] 100 mg IVPB Q12H vial 07/31/17 polyethylene glycol 3350 17 gm PO DAILY PRN PRN packet 07/31/17 promethazine 25 mg IVPB Q4H PRN PRN vial 07/31/17 ondansetron 4 mg PO Q6H PRN PRN #20 tab.rapdis 10/12/17 Allergies Allergy/AdvReac Type Severity Reaction Status Date / Time metoclopramide HCl Allergy Intermediate TARDIIVE Unverified 01/13/19 15:25 [From Reglan] DYSKINESIA oxycodone HCl [From Percocet] Allergy Intermediate Unverified 01/13/19 15:25 simvastatin [From Zocor] Allergy Intermediate MYOCLONUS Unverified 01/13/19 15:25 esomeprazole magnesium AdvReac Diarrhea Unverified 01/13/19 15:25 [From Nexium] DIMOTROPE Allergy Mild Uncoded 01/13/19 15:25 ORNADE DIMOTROPE Allergy Unknown Uncoded 01/13/19 15:25 General Stated Complaint: Orthopedic ROBIN: 3 Review of Systems Review of Systems No recent illness, no change to bowel or bladder habits. No fall or injury. 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, 8 systems reviewed and otherwise negative [facility] Medical History Dizziness (Acute) Lumbar back pain (Acute) Right shoulder pain (Acute) Dyspnea on exertion (Chronic) Gastroparesis (Chronic) Hernia (Chronic) Left hemiparesis (Chronic) Depression HTN (hypertension) History of CVA (cerebrovascular accident) History of diabetes mellitus Hypothyroidism (acquired) Migraine Pancreas transplanted Surgical History History of pancreas transplant (Resolved) Social History Smoking/Tobacco Use Status: Never Alcohol Intake: never Drug use: Never Substance use type: does not use Do you feel safe in your relationship?: Yes Exam Narrative Exam Narrative: GEN: awake, alert, oriented 3. Pleasant, well groomed, interactive. HEAD: Normocephalic, atraumatic ENT: Mucous membranes moist, oropharynx unremarkable, External ear exam unremarkable EYES: PERRL, EOMI NECK: Full ROM, no RANDOLPH, no menigismus CHEST/RESP: Nontender, clear to auscultation bilateral, no wheeze/rhonchi/rales CARDIOVASCULAR: RRR, no murmur, rub ketan. 2+ Rad pulse bilateral ABDOMEN: Soft, nontender, no mass. +Bowel sounds EXT: The left upper and lower extremity are tight with slight spasm/spasticity and muscle wasting throughout. Motor graded 4 out of 5 in left upper and lower extremity. Exception would be dorsiflexion of the left foot which is weak. 5 out of 5 in the lower extremity. Sensation is intact throughout including sad dle distribution. Patient Neuro: Grossly normal neurologic exam, conversant, interactive. Psych: Speech fluent, thoughts congruent, affect normal Course Vital Signs Temperature 36.8 C 01/13/19 15:23 Pulse 87 01/13/19 15:23 Respiratory Rate 20 01/13/19 15:23 Blood Pressure 167/91 H 01/13/19 15:23 Pulse Oximetry 100 01/13/19 15:23 Temperature 36.8 C 01/13/19 15:23 Temperature Source Temporal Artery Scan 01/13/19 15:23 Pulse 87 01/13/19 15:23 Respiratory Rate 20 01/13/19 15:23 Respiratory Effort Non-Labored 01/13/19 15:23 Blood Pressure 167/91 H 01/13/19 15:23 Pulse Oximetry 100 01/13/19 15:23 Oxygen Delivery Method Room Air 01/13/19 15:23 Oxygen Flow Rate 0 01/13/19 15:23 Pain Level 10 01/13/19 15:23
--- NOTE | 2019-01-13 16:41 | DI.VRAD_ITS ---
EXAM: XR Left Hip with Pelvis when Performed, 2 or 3 Views EXAM DATE/TIME: 01/13/2019 3:52 PM CLINICAL HISTORY: 53 years old, male; Signs and symptoms; Other: L hip pain, leg length discrepancy TECHNIQUE: Imaging protocol: XR Left hip with pelvis when performed, 2 or 3 views COMPARISON: CT CHEST ABD PELVIS WO CONTRAST 10/12/2017 7:05 AM FINDINGS: Bones/joints: There degenerative changes within the lower lumbar spine. Both hip joint spaces are well-maintained. No fracture or osteonecrosis. The sacral iliac joints and pubic symphysis are unremarkable. Multiple tiny sclerotic foci within the right and left acetabula and femoral necks, likely bone islands. Soft tissues: Normal. IMPRESSION: No acute bone or joint abnormality. Dictated and Authenticated by: Artemio Hernandez MD. Ordering:MICHELLE Girard MD
[2019-01-13 17:02] VITALS: BP 158/80; PULSE 87; RESP 20; TEMP 36.8; O2SAT 100
== END 2019-01-13 17:03 | disposition home or self-care (01) ==
PROVIDERS: Emergency Provider Emergency Medicine; PCP Family Medicine
DX: S76.012A Strain of muscle, fascia and tendon of left hip, initial encounter (principal); I69.354 Hemiplegia and hemiparesis following cerebral infarction affecting left non-dominant side; X50.3XXA Overexertion from repetitive movements, initial encounter; I10 Essential (primary) hypertension; E11.9 Type 2 diabetes mellitus without complications
CPT/HCPCS: 99283; 73502; 99282; E0114

== ENCOUNTER 2019-04-18 08:43 | Day surgery (SDC) | payer BC, SELFPAY ==
--- NOTE | 2019-04-18 06:50 | W.COLOREPORT ---
Date of service: 04/18/19 Time of Service: 10:38 Colonoscopy Report Date of procedure: 04/18/19 Pre-op diagnosis general: Pitting of colonic mucosa, colon cancer screening Post-op diagnosis procedure note: same (and polyp) Procedure: Colonoscopy with polypectomy Surgeon: Sandra Bardales Anesthesia proc note operative: MAC (ASA 3/ Seth Mendez CRNA) Estimated blood loss (mL): 5 Pathology: other (ascending colon polyp) Complications: None Disposition: same day Indications: Mr. Hsu is a pleasant 53-year-old gentleman who was seen in 2015 and had a colonoscopy. Report describes bleeding of the colonic mucosa but there is no history of actual polyps. He was asked to come back in 3 years. He has had no changes in his bowel habits and no bleeding. Risks, benefits and complications have been reviewed. Complications include but are not limited to bleeding, pain, perforation, missed small lesion/polyp, sore throat, aspiration and adverse reaction to the medications. Questions were entertained and answered to their satisfaction and they wished to proceed. No guarantees were given or implied. Prep: Miralax/Dulcolax Procedure Start Time: :38 Procedure End Time: 11:13 Retraction Time: 19 minutes Findings: One small polyp identified in the ascending colon Very difficult colonoscopy due to the patients uncontrolled shaking Procedure Description: After informed consent was obtained the patient was taken to the procedure room and placed in a left decubitous position. Monitors were applied and a time out was done. The patients name, date of , procedure, allergies to medications and metal in their body was reviewed. The patient was then sedated. Once sedated and comfortable a rectal exam was done. External exam was normal. Internal exam revealed a normal sphincter tone and no palpable masses. The prostate felt smooth. The scope was then introduced and retro-flexed. No internal hemorrhoids, polyps or masses were identified. The scope was then advanced to the cecum with some difficulty due to the patients uncontrolled shaking. The TI and appendiceal orifice were identified. The prep was good. The scope was then slowly retracted over 19 minutes back into the rectum. Polyps were removed with cold forceps in the ascending colon. The colonoscopy was extrremily difficult due to the patients uncontrolled shaking and moving throughout the colonoscopy.The scope was removed and the patient was woken up and taken back to Same day surgery in stable condition. The patient tolerated the procedure well and there were no immediate complications. Follow up: The patient should follow up in 3 years unless they develop changes in bowel habits or other new gastrointestinal complaints.
--- NOTE | 2019-04-18 06:52 | W.PM.DSUDISC ---
Discharge Plan Disposition Patient Disposition: HOME Condition: Good Discharge Details Reason For Visit: Colon Cancer screening Attending Provider: Sandra Bardales Primary Care Provider: Anna Mullen V Home Meds and New Rx's Prescriptions: Continued sildenafil [Viagra] 100 mg tablet 100 mg PO DAILY PRNRF: 0 meclizine 25 mg tablet 25 mg PO TID PRNRF: 0 nitroglycerin [Nitrostat] 0.4 mg tablet, sublingual 0.4 mg SL Q5M PRNRF: 0 lidocaine [Lidoderm] 5 % adhesive patch,medicated 1 patch TP DAILY PRNRF: 0 valacyclovir 1 gram tablet 2,000 mg PO BID PRNRF: 0 polyethylene glycol 3350 [Miralax] 17 gram/dose powder 17 gm PO DAILY RF: 0 omega-3 fatty acids [Fish Oil Concentrate] 1,000 mg capsule 1,000 mg PO DAILY RF: 0 multivitamin [Daily Multi-Vitamin] 1 EACH tablet 1 ea PO DAILY RF: 0 levothyroxine 175 MCG tablet 150 mcg PO DAILY RF: 0 aspirin [Aspirin Low-Strength] 81 MG tablet,chewable 81 mg PO DAILY RF: 0 trazodone 50 MG tablet 50 mg PO HS RF: 0 magnesium gluconate 27 MG tablet 27 mg PO DAILY RF: 0 tacrolimus [Prograf] 1 MG capsule 2 mg PO QAM RF: 0 venlafaxine 150 MG tablet extended release 24hr 150 mg PO DAILY RF: 0 mycophenolate mofetil [CellCept] 250 mg capsule 250 mg PO 2 CAPS BID RF: 0 lisinopril 20 mg tablet 30 mg PO BID RF: 0 pantoprazole 40 MG tablet,delayed release (DR/EC) 40 mg PO BID RF: 0 gabapentin 300 MG capsule 300 mg PO QAM RF: 0 gabapentin 300 MG capsule 900 mg PO HS RF: 0 ondansetron 4 MG tablet,disintegrating 4 mg PO Q6H PRN PRN (Reason: Nausea / Vomiting) Qty: 20 RF: 0 tacrolimus [Prograf] 1 mg Capsule 1 mg PO HS RF: 0 acetaminophen [Tylenol] 325 MG tablet 650 mg PO Q4H PRN PRNRF: 0 albuterol sulfate 2.5 MG/3 ML solution for nebulization 2.5 mg UPD Q2H PRN PRNRF: 0 docusate sodium [Colace] 100 MG capsule 100 mg PO TID PRN PRNRF: 0 Discontinued polyethylene glycol 3350 17 gram/dose powder 238 g PO ONCE Qty: 238 RF: 0 bisacodyl [Dulcolax (bisacodyl)] 5 mg tablet,delayed release (DR/EC) 5 mg PO ONCE Qty: 4 RF: 0 magnesium citrate [Citrate of Magnesia] Solution 300 ml PO ONCE Qty: 296 RF: 0 Discharge Instructions Instructions: Colonoscopy (GEN) Additional Instructions: Findings: One polyp same pitting of the colon mucosa noted Follow up: 3 years Please call if you develop: fevers >101.5 Nausea or Vomiting Abdominal pain that is not transient DAY SURGERY UNIT POST COLONOSCOPY INSTRUCTIONS 1. Because there will be medication in your system for the next 24 hours, you may feel a little sleepy. Your coordination will be affected. Therefore: a. Do not drive or operate dangerous equipment for 24 hours. b. Do not drink alcohol beverages for 24 hours (not even beer). c. Plan to go home and rest for the day. 2. Generally there are no restrictions on your activity after a day or so has gone by, but you may feel a bit fatigued for a few days. 3 After you arrive home you may have a light meal and return to a normal diet as you can tolerate it without feeling sick to your stomach. 4. After surgery, you may feel pain or discomfort. This should be only transient, but if it persists please contact your doctor. 5. If there are any questions regarding the findings of your procedure, please feel free to contact your doctor. 6. If you are unable to contact your doctor with a problem, contact the hospital at [phone]. 7. Continue all your regular medications unless directed otherwise. I understand the above instructions and have no questions. Signature of Patient or Responsible Adult Escort Date/Time Name of Responsible Adult Escort Signature of Nurse Date/Time Activity:: Activity as Tolerated Diet:: As Tolerated Discharge Orders Discharge Orders: Discharge Order (Routine); Ordered 04/18/19 Ordered By: Sandra Bardales DS: Diagnosis Discharge Diagnosis (1) History of colonoscopy: Status: Chronic
[2019-04-18 08:55] VITALS: BP 131/85; PULSE 72; RESP 16; TEMP 36.2; O2SAT 99
[2019-04-18] MEDS: Lactated Ringers 1,000 ML 80 ML IV (09:45)
--- NOTE | 2019-04-18 11:14 | BOWEL_PTH ---
PATIENT: Richard Hsu LOC: [facility] U#:[id number] AGE/SX: 53/M ROOM: RE04/18/[address]: Sandra Bardales MD : [id number] BED: DIS: 04/18/2019 SPEC #: [id number] RECD: 04/18/19 11:59 STATUS: CURRY REQ #: [id number] ROBERT: 04/18/19 11:[address]: Sandra Bardales DEPT: Surgical Specimen RECD BY: Rachael Garcia ENTERED: 04/18/19 12:00 SP TYPE: Bowel OTHR DR: Anna Mullen V Tissues: 1 - BIOPSY BOWEL Procedures: GROSS AND MICRO LEVEL 4 Comments: [id number]
[2019-04-18 12:10] VITALS: BP 139/92; PULSE 64; RESP 16; TEMP 36.6; O2SAT 100
== END 2019-04-18 12:26 | disposition home or self-care (01) ==
PROVIDERS: PCP Family Medicine; Visit Provider Surgery
PROC: 0DJD8ZZ Inspection of Lower Intestinal Tract, Via Natural or Artificial Opening Endoscopic (ICD-10-PCS; CPT 45378; principal; 2019-04-18 10:30)
DX: Z12.11 Encounter for screening for malignant neoplasm of colon (principal); D12.2 Benign neoplasm of ascending colon; I10 Essential (primary) hypertension
CPT/HCPCS: 45380; 88305; J2250

== ENCOUNTER 2019-05-15 09:29 | Outpatient (CLI) | payer BC, SELFPAY ==
[2019-05-15 10:13] LABS: HGB 14.9 g/dL (13.5-17.5); Mean Corp. HGB Concentration 33.9 g/dL (32.0-36.0); Mean Corpuscular Hemoglobin 30.3 pg (27.0-33.0); Mean Corpuscular Volume 89.4 fL (80-95); Mean Platelet Volume 10.3 fL (8.0-11.0); Platelet Count 252 x1000/uL (130-400); RBC 4.92 m/cumm (4.50-6.00); RBC Distribution Width 12.7 % (11.8-14.1); White Blood Cell Count 7.85 k/cumm (4.4-10.8)
[2019-05-15 10:25] LABS: Bilirubin Negative (Negative); Blood Negative (Negative); Clarity Clear (Clear); Glucose Negative (Negative); Ketones Negative (Negative); Leukocyte Esterase Negative (Negative); Nitrite Negative (Negative); Specific Gravity 1.015 (1.005-1.025)
[2019-05-15 10:54] LABS: Cholesterol 162 mg/dL (50-200)
[2019-05-15 10:55] LABS: ALT 39 U/L (16-63); AST 30 U/L (15-37); Albumin 4.1 g/dL (3.4-5.0); Alkaline Phosphatase 125 U/L (46-116); Anion Gap 7.2 mmol/L (3-11); BUN 14 mg/dL (7-18); Bilirubin, Total 1.4 mg/dL (0.2-1.0); CO2 27.8 mmol/L (21.0-32.0); CREATININE 1.12 mg/dL (0.70-1.30); Calcium 8.9 mg/dL (8.5-10.1); Chloride 100 mmol/L (98-107); Glucose 101 mg/dL (70-100); Magnesium 1.7 mg/dL (1.8-2.4); PHOSPHORUS 3.4 mg/dL (2.6-4.7); Potassium 4.9 mmol/L (3.5-5.1); Sodium 135 mmol/L (136-145); Total Protein 7.4 g/dL (6.4-8.2); Uric Acid 6.7 mg/dL (3.5-7.2)
[2019-05-16 06:00] LABS: PROTEIN < 6.0 mg/dL
[2019-05-16 06:02] LABS: COMMENT (LAB VIEW ONLY) 38.26 mg/dL
[2019-05-17 14:03] LABS: Tacrolimus 6.7 ng/ml
== END 2019-05-15 09:49 ==
PROVIDERS: PCP Family Medicine; Visit Provider Internal Medicine Nephrology
DX: Z29.8 Encounter for other specified prophylactic measures (principal); Z94.0 Kidney transplant status; Z79.899 Other long term (current) drug therapy
CPT/HCPCS: 36415; 80053; 80197; 85027; 81003; 82465; 82565; 83735; 84100; 84156; 84550

== ENCOUNTER 2019-07-15 23:38 | Outpatient (REF) | payer BC, SELFPAY ==
[2019-07-15 20:54] LABS: Hemoglobin A1C 5.8 % (4.5-6.2)
[2019-07-15 20:59] LABS: Anion Gap 8.5 mmol/L (3-11); BUN 17 mg/dL (7-18); CO2 27.5 mmol/L (21.0-32.0); CREATININE 1.29 mg/dL (0.70-1.30); Calcium 9.9 mg/dL (8.5-10.1); Chloride 97 mmol/L (98-107); Estimated GFR 58.72 (mL/min/1.73m2); Glucose 107 mg/dL (70-100); Potassium 5.7 mmol/L (3.5-5.1); Sodium 133 mmol/L (136-145); TSH (W/Ref FT4) 1.09 uIU/mL (0.36-3.74)
[2019-07-18 12:19] LABS: PSA, Screening 0.5 ng/mL (0.0-3.5)
== END 2019-07-15 23:58 ==
LOC: NCHCN 23:38
PROVIDERS: PCP Family Medicine; Visit Provider Family Medicine
DX: E11.9 Type 2 diabetes mellitus without complications (principal); I10 Essential (primary) hypertension; E55.9 Vitamin D deficiency, unspecified; Z12.5 Encounter for screening for malignant neoplasm of prostate
CPT/HCPCS: 80048; 84153; 83036; 84443

== ENCOUNTER 2019-08-06 06:47 | Emergency (ER) | payer BC, SELFPAY ==
[2019-08-06] VITALS (17 sets, daily range): BP systolic 132–171; BP diastolic 77–99; PULSE 72–94; RESP 13–24; TEMP 36.7; O2SAT 97–100
--- NOTE | 2019-08-06 06:59 | ED.GENADUL_ITS ---
Discharge Plan Disposition Patient Disposition: [facility] Condition: Good Discharge Details Chief Complaint: CVA/TIA Clinical Impression: Brain TIA Primary Care Provider: Anna Mullen V ED Provider: Ariel Travis Home Meds and New Rx's Prescriptions: No Action sildenafil [Viagra] 100 mg tablet 100 mg PO PRN PRNRF: 0 meclizine 25 mg tablet 25 mg PO TID PRNRF: 0 nitroglycerin [Nitrostat] 0.4 mg tablet, sublingual 0.4 mg SL Q5M PRNRF: 0 lidocaine [Lidoderm] 5 % adhesive patch,medicated 1 patch TP DAILY PRNRF: 0 valacyclovir 1 gram tablet 2,000 mg PO PRN PRNRF: 0 polyethylene glycol 3350 [Miralax] 17 gram/dose powder 17 gm PO PRN PRNRF: 0 omega-3 fatty acids [Fish Oil Concentrate] 1,000 mg capsule 1,000 mg PO DAILY RF: 0 multivitamin [Daily Multi-Vitamin] 1 EACH tablet 1 ea PO DAILY RF: 0 levothyroxine 175 MCG tablet 150 mcg PO DAILY RF: 0 aspirin [Aspirin Low-Strength] 81 MG tablet,chewable 81 mg PO DAILY RF: 0 trazodone 50 MG tablet 50 mg PO HS RF: 0 magnesium gluconate 27 MG tablet 27 mg PO DAILY RF: 0 tacrolimus [Prograf] 1 MG capsule 2 mg PO QAM RF: 0 venlafaxine 150 MG tablet extended release 24hr 225 mg PO DAILY RF: 0 mycophenolate mofetil [CellCept] 250 mg capsule 250 mg PO 2 CAPS BID RF: 0 lisinopril 20 mg tablet 30 mg PO BID RF: 0 pantoprazole 40 MG tablet,delayed release (DR/EC) 40 mg PO BID RF: 0 gabapentin 300 MG capsule 300 mg PO QAM RF: 0 gabapentin 300 MG capsule 900 mg PO HS RF: 0 ondansetron 4 MG tablet,disintegrating 4 mg PO Q6H PRN PRN (Reason: Nausea / Vomiting) Qty: 20 RF: 0 tacrolimus [Prograf] 1 mg Capsule 1 mg PO HS RF: 0 acetaminophen [Tylenol] 325 MG tablet 650 mg PO Q4H PRN PRNRF: 0 albuterol sulfate 2.5 MG/3 ML solution for nebulization 2.5 mg UPD Q2H PRN PRNRF: 0 docusate sodium [Colace] 100 MG capsule 100 mg PO TID PRN PRNRF: 0 Medical Decision Making This is a 53-year-old male with past medical history of a stroke at the age of 11, pancreatic transplant on CellCept and Prograf, hypertension, who presents today for evaluation initially of globus sensation in his throat but now strokelike symptoms. Patient woke up this morning and felt relatively asymptomatic aside from mild globus sensation in his throat. When he went to lay back down to bed he felt that his symptoms notably worsened, contacted EMS, their arrival he had no focal deficits, however because of his subjective symptomatology was given 50 of Benadryl and racemic epinephrine inhaled. However by the time of his arrival he demonstrated significant worsening of his symptoms including dysarthria, to limb ataxia, which was definitely new and atypical. On assessment here the patient demonstrate an NIH stroke score of 3 primarily because of ataxia of the upper and lower limbs on the left, mild speech disturbance. No contraindications at this time for TPA. Differential certainly includes stroke. Posterior oropharynx shows no evidence of angioedema or significant swelling. This may be a red ferrer secondary to a neurologic dysfunction rather than actual anatomic issue. We will evaluate for acute issue, contact [facility] neurology monitor closely. 7:57 AM We are still awaiting CT results from virtual radiology. On reassessment patient actually shows marked improvement of his symptoms. His NIH stroke score would now be almost 0. He no longer shows any dysarthria. He has a normal bajz-au-zkgb using the left now. His avqyfu-hfxg-pmcwlu is notably improved. Subjectively he feels much better, additionally he also feels like the globus sensation is resolved in his throat. Still pending consult with [facility]. CT scan results are negative for acute process. There is evidence of an osteophyte at C5/C6. This may be related to the patient's dysphasia but I feel it less likely. Also of note reassessment of the patient's posterior oropharynx demonstrates no signs of swelling whatsoever, no evidence of angioedema whatsoever. 8:[address] Nolasco from [facility], discussed the case with him. He agrees on the need for further MRI imaging and neurologic evaluation. Signs and symptoms at this time have resolved, and his diagnosis will be TIA. We contacted the ED, spoke with the ED physician, the patient will be transferred directly to the ED for admission to the CDU. Neurology also recommended loading the patient was 600 mg of Plavix and 2 baby aspirin. This will be given here. I have extensively reviewed the treatment plan with the patient. I have addressed all patient concerns at this time. I have also discussed the plan with the admitting physician and they agree with the current assessment and plan and have agreed to assume responsibility for the patient. All parties demonstrate verbal understanding and agreement with our assessment and plan at this time. At time of transfer the patient was reassessed and continued to demonstrate current medical stability. No signs of acute respiratory distress requiring intubation, hemodynamic instability requiring pressor support, or rapidly declin ing mental status. The patient is stable for transport. EKG 7: 19 Rate 95, intervals normal, sinus rhythm, no significant ST elevations or depressions, no evidence of STEMI. Inverted T wave is present in V1. No Q waves. Unchanged from prior EKG on 10/12/2017 IMPRESSION: No acute findings. Thank you for allowing us to participate in the care of your patient. Dictated and Authenticated by: Jameel Galicia MD 08/06/2019 7:58 AM Eastern Time ([place] & [place]) HEAD: Brain: Mild volume loss. No hemorrhage. No mass effect. This stage No significant white matter disease. No edema. There is mild diffuse heterogeneity of the white matter attenuation, consistent with chronic white matter ischemic changes. Ventricles: Normal. No ventriculomegaly. Bones/joints: Unremarkable. No acute fracture. Sinuses: Visualized sinuses are normal. No fluid levels. Mastoid air cells: Visualized mastoids are normal. No mastoid effusion. Soft tissues: Unremarkable. IMPRESSION: No acute findings. Note that early ischemic change can be occult on CT. IMPRESSION: 1. No acute findings. 2. Dominant left vertebral artery. 3. Prominent anterior C5-C6 marginal osteophyte. This sometimes can be a cause of dysphagia. Consider modified barium swallow with speech pathology. 4. Somewhat patulous esophagus. COMMENT: Reference per NASCET criteria for degree of stenosis: Mild: less than 50% stenosis. Moderate: 50- 69% stenosis. Severe: 70-94% stenosis. Near occlusion: 95-99% stenosis. Thank you for allowing us to participate in the care of your patient. Dictated and Authenticated by: Jameel Galicia MD 08/06/2019 7:57 AM Eastern Time ([place] & [place]) HPI General Date/Time Provider Initiated Documentation: 08/06/19 06:52 . HPI Narrative: This is a very pleasant 53-year-old male with past medical history of pancreatic transplant, hypertension, type 1 diabetes, on Prograf and CellCept, and also a history of a stroke at the age of 11, who presents today for evaluation of globus sensation in his throat and strokelike symptoms. Patient states that he woke up roughly 1 hour ago, at that time he felt like it was something stuck in his throat. When he went to go lay down for bed it felt worse, and he felt notably atypical. EMS was contacted. They noted no significant abnormalities except for mild swelling in the posterior oropharynx. A 50 of Benadryl and inhaled racemic epi. Patient was brought to the ER, however on the way to the ER he began to develop left-sided deficits, worsening slurred speech, and worsening mental status. Patient states that he woke up with no symptoms otherwise. Aside for stroke at the age of 11 he denies any other history of stroke. The stroke at the age of 11 did lead to paralysis and left side which is notably resolved over the years. Patient denies any other complaints at this time. No other modifying factors. He denies red flags of recent trauma, fever chills, headache. EMS Accu-Chek was 108. Related Data Home Medications Medication Instructions Recorded Confirmed aspirin [Aspirin Low-Strength] 81 mg PO DAILY tab-cap 08/21/14 08/06/19 levothyroxine 150 mcg PO DAILY tab-cap 08/21/14 08/06/19 multivitamin [Daily Multi-Vitamin] 1 ea PO DAILY 08/21/14 08/06/19 magnesium gluconate 27 mg PO DAILY 10/12/14 08/06/19 trazodone 50 mg PO HS tab-cap 10/12/14 08/06/19 gabapentin 300 mg PO QAM 05/15/16 08/06/19 pantoprazole 40 mg PO BID 05/15/16 08/06/19 tacrolimus [Prograf] 2 mg PO QAM 07/22/17 08/06/19 venlafaxine 225 mg PO DAILY tab-cap 07/22/17 08/06/19 acetaminophen [Tylenol] 650 mg PO Q4H PRN PRN tab 07/31/17 08/06/19 albuterol sulfate 2.5 mg UPD Q2H PRN PRN vial 07/31/17 08/06/19 docusate sodium [Colace] 100 mg PO TID PRN PRN cap 07/31/17 08/06/19 gabapentin 900 mg PO HS 10/12/17 08/06/19 ondansetron 4 mg PO Q6H PRN PRN #20 tab.rapdis 10/12/17 08/06/19 lidocaine 5 % topical patch 1 patch TP DAILY PRN 10/18/18 08/06/19 omega-3 fatty acids 1,000 mg 1,000 mg PO DAILY 10/18/18 08/06/19 capsule polyethylene glycol 3350 17 17 gm PO PRN PRN 10/18/18 08/06/19 gram/dose oral powder valacyclovir 1 gram tablet 2,000 mg PO PRN PRN tab 10/18/18 08/06/19 meclizine 25 mg tablet 25 mg PO TID PRN 03/29/19 08/06/19 mycophenolate mofetil 250 mg 250 mg PO 2 CAPS BID tab-cap 03/29/19 08/06/19 capsule nitroglycerin 0.4 mg sublingual 0.4 mg SL Q5M PRN 03/29/19 08/06/19 tablet sildenafil 100 mg tablet 100 mg PO PRN PRN 03/29/19 08/06/19 lisinopril 20 mg tablet 30 mg PO BID tab-cap 04/11/19 08/06/19 tacrolimus [Prograf] 1 mg PO HS 04/14/19 08/06/19 Previous Rx's Medication Instructions Recorded acetaminophen [Tylenol] 650 mg PO Q4H PRN PRN tab 07/31/17 albuterol sulfate 2.5 mg UPD Q2H PRN PRN vial 07/31/17 docusate sodium [Colace] 100 mg PO TID PRN PRN cap 07/31/17 ondansetron 4 mg PO Q6H PRN PRN #20 tab.rapdis 10/12/17 Allergies Allergy/AdvReac Type Severity Reaction Status Date / Time metoclopramide HCl Allergy Intermediate TARDIIVE Unverified 08/06/19 07:22 [From Reglan] DYSKINESIA oxycodone HCl [From Percocet] Allergy Intermediate Unverified 08/06/19 07:22 simvastatin [From Zocor] Allergy Intermediate MYOCLONUS Unverified 08/06/19 07:22 esomeprazole magnesium AdvReac Diarrhea Unverified 08/06/19 07:22 [From Nexium] DIMOTROPE Allergy Mild Uncoded 08/06/19 07:22 ORNADE DIMOTROPE Allergy Unknown Uncoded 08/06/19 07:22 General Stated Complaint: CVA/TIA ROBIN: 2 Review of Systems All systems reviewed & are unremarkable except as noted in HPI and below PFSH Medical History Atopic dermatitis (Acute) Colonoscopy planned (Acute) Depression Dizziness (Acute) Dyspnea on exertion (Chronic) Fever of unknown origin (Acute) Gastroparesis (Chronic) Hernia (Chronic) History of CVA (cerebrovascular accident) History of diabetes mellitus HTN (hypertension) Hyponatremia (Acute) Hypothyroidism (acquired) Left hemiparesis (Chronic) Lumbar back pain (Acute) Migraine Near syncope (Acute) Pancreas transplanted Right shoulder pain (Acute) Vertigo (Acute) Surgical History (Updated 04/18/19 @ 09:16 by Nilsa Wilkerson RN) History of appendectomy (Chronic) History of arthroscopic knee surgery (Chronic) History of colonoscopy (Chronic) 2015-pitting of colonic mucosa History of esophagogastroduodenoscopy (EGD) (Chronic) History of pancreas transplant (Resolved) History of shoulder surgery (Chronic) R shoulder Family History (Updated 04/14/19 @ 11:11 by Vashti Alvarado RN) Other Heart disease Social History Smoking/Tobacco Use Status: Never Alcohol Intake: never Drug use: Never Substance use type: does not use Do you feel safe at home: Yes Do you feel safe in your relationship?: Yes Exam Narrative Exam Narrative: 1.Const: Well-nourished, Well-developed, appearing stated age 2.Eyes: PERRL, no conjunctival injection, and symmetrical lids. 3.ENT: Atraumatic external nose and ears. Moist MM. Neck: Symmetric, trachea midline, No thyromegaly. No significant swelling the posterior oropharynx. No evidence of uvular or tonsillar enlargement. No signs of angioedema. 4.CVS: +S1/S2, No murmurs or gallops. Peripheral pulses 2+ and equal in all extremities. Brisk capillary refill in all extremities. 5.RESP: Unlabored respiratory effort. Clear to auscultation bilaterally. No wheezes rales or rhonchi 6.GI: Soft, Nontender/Nondistended, No hepatosplenomegaly. No guarding or rebound. 7.MSK: Normocephalic/Atraumatic, Extremities w/o deformity or ttp No cyanosis or clubbing 8.Skin: Warm, Dry. No rashes or lesions. 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 Sensation grossly intact. All 6 cardinal planes of vision are fully intact. No evidence of rotatory or vertical nystagmus. The patient demonstrated abnormal smpwew-dnlx-upuftk for the left hand, normal ccwbga-zysc-tdcrvt for the right hand with reduced dexterity in the left hand. There was evidence of dysdiadochokinesia with the issue being with the left hand. Patient was able to ambulate but had mild to moderate difficulty, slight dragging of the left lower extremity. There was no wide-based gait. Jcvp-sv-qhum testing demonstrated abnormality and difficulty with the left lower extremity, normal right lower extremity movement . Sensation was intact bilaterally as well as muscle strength bilaterally for all extremities. Patient was able to verbalize butter cup but there was mild mispronunciation. Patient able to hold arms and legs up each for the appropriate amount of time. NIH stroke score is 3 secondary to dysarthria, and to limb ataxia 10.Psych: (AAO) x3. Appropriate mood and affect Course Vital Signs Vital signs: Vital Signs Temperature 36.7 C 08/06/19 06:51 Pulse 92 H 08/06/19 06:51 Respiratory Rate 18 08/06/19 06:51 Blood Pressure 153/99 H 08/06/19 06:51 Pulse Oximetry 100 08/06/19 06:51 Temperature 36.7 C 08/06/19 06:51 Temperature Source Temporal Artery Scan 08/06/19 06:51 Pulse 92 H 08/06/19 06:51 Respiratory Rate 18 08/06/19 06:51 Respiratory Effort 08/06/19 06:54 Blood Pressure 153/99 H 08/06/19 06:51 Blood Pressure Position Sitting 08/06/19 06:51 Pulse Oximetry 100 08/06/19 06:51 Oxygen Delivery Method Non-Rebreather 08/06/19 06:51 Oxygen Flow Rate 12 08/06/19 06:51
--- NOTE | 2019-08-06 07:14 | DI.CT_ITS ---
EXAM: CT BRAIN NECK CTA CLINICAL HISTORY: left sided stroke like symptoms and globus sensation TECHNIQUE: Noncontrast head CT followed by CT angiography of the neck and head. Axial CT angiography was performed with multi-slice acquisition and multi-planar and/or 3D reconstruc tions. COMPARISON: HEAD AND NECK WO CONTRAST from 10/12/2017 HEAD AND NECK WO CONTRAST from 10/12/2017 CT CHEST PE CTA from 12/27/2018 FINDINGS: No intracranial hemorrhage, mass or infarct is seen. The ventricles are normal in size. There is no e vidence of skull fracture. The sinuses and mastoid air cells appear clear. There are no abnormal enha ncing lesions. The common, internal and external carotid arteries show normal diameter. There is no e vidence of occlusion, dissection or significant stenosis. The left vertebral artery is dominant. The right vertebral artery is diminutive. The intracranial vessels show no evidence of occlusion, stenos is or dissection. There is no gross evidence of an aneurysm. IMPRESSION: Negative CT angiography of the head and neck.
--- NOTE | 2019-08-06 07:15 | DI.RAD_ITS ---
EXAM: XR CHEST 1V IN DI DEPT INDICATION: stroke like symptoms. COMPARISON: No exams were available for comparison TECHNIQUE: 2D digital imaging was performed. FINDINGS: The heart size is normal. The lungs are clear. No mass, infiltrate or effusion is seen. There is n o evidence of pneumothorax. The visualized portions of the ribs appear intact. IMPRESSION: Negative portable chest.
[2019-08-06] MEDS: Omnipaque 350 MG/ML 100 ML BTL IJ (07:16)
[2019-08-06 07:40] LABS: TSH 0.72 uIU/mL (0.36-3.74)
--- NOTE | 2019-08-06 07:57 | DI.VRAD_ITS ---
PROCEDURE INFORMATION: Exam: CT Angiography Head Without And With Contrast Exam date and time: 08/06/2019 6:54 AM Age: 53 years old Clinical history: Other: Lt sided stroke like symptoms and globus sens; Additional info: Lt sided stroke like symptoms and globus sensation TECHNIQUE: Imaging protocol: Computed tomographic angiography of the head without and with intravenous contrast. 3D rendering: MIP reconstructed images were created and reviewed. Radiation optimization: All CT scans at this facility use at least one of these dose optimization techniques: automated exposure control; mA and/or kV adjustment per patient size (includes targeted exams where dose is matched to clinical indication); or iterative reconstruction. Contrast material: [id number]; Contrast volume: 85 ml; Contrast route: IV RAC 18G; Other technique: STROKE PROTOCOL was implemented. COMPARISON: CT HEAD AND NECK WO CONTRAST 10/12/2017 6:58 AM FINDINGS: Right internal carotid artery: Unremarkable. Intracranial segment is patent with no significant stenosis. No aneurysm. Right anterior cerebral artery: Unremarkable. No occlusion or significant stenosis. No aneurysm. Right middle cerebral artery: Unremarkable. No occlusion or significant stenosis. No aneurysm. Right posterior cerebral artery: Unremarkable. No occlusion or significant stenosis. No aneurysm. Right vertebral artery: Unremarkable. No occlusion or significant stenosis. No aneurysm. Left internal carotid artery: Unremarkable. Intracranial segment is patent with no significant stenosis. No aneurysm. Left anterior cerebral artery: Unremarkable. No occlusion or significant stenosis. No aneurysm. Left middle cerebral artery: Unremarkable. No occlusion or significant stenosis. No aneurysm. Left posterior cerebral artery: Unremarkable. No occlusion or significant stenosis. No aneurysm. Left vertebral artery: Unremarkable. No occlusion or significant stenosis. No aneurysm. Basilar artery: Unremarkable. No occlusion or significant stenosis. No aneurysm. HEAD: Brain: Mild volume loss. No hemorrhage. No mass effect. This stage No significant white matter disease. No edema. There is mild diffuse heterogeneity of the white matter attenuation, consistent with chronic white matter ischemic changes. Ventricles: Normal. No ventriculomegaly. Bones/joints: Unremarkable. No acute fracture. Sinuses: Visualized sinuses are normal. No fluid levels. Mastoid air cells: Visualized mastoids are normal. No mastoid effusion. Soft tissues: Unremarkable. IMPRESSION: No acute findings. Note that early ischemic change can be occult on CT. ASSESSMENT: ASPECTS ([place] Stroke Program Early CT Score) is 10. PROCEDURE INFORMATION: Exam: CT Angiography Neck Without And With Contrast Exam date and time: 08/06/2019 6:54 AM Age: 53 years old Clinical history: Other: Lt sided stroke like symptoms and globus sens; Additional info: Lt sided stroke like symptoms and globus sensation TECHNIQUE: Imaging protocol: Computed tomographic angiography of the neck without and with intravenous contrast. 3D rendering: MIP reconstructed images were created and reviewed. Radiation optimization: All CT scans at this facility use at least one of these dose optimization techniques: automated exposure control; mA and/or kV adjustment per patient size (includes targeted exams where dose is matched to clinical indication); or iterative reconstruction. Contrast material: [id number]; Contrast volume: 85 ml; Contrast route: IV RAC 18G; COMPARISON: CT HEAD AND NECK WO CONTRAST 10/12/2017 6:58 AM FINDINGS: VASCULATURE: Right common carotid artery: Mild atherosclerotic calcification of the carotid bulb. No dissection or occlusion. Right internal carotid artery: Unremarkable extracranial segment. No stenosis. No dissection or occlusion. Right external carotid artery: Unremarkable. No occlusion or stenosis of the origin. Right vertebral artery: Diminutive. Not well visualized intracranial portion. No dissection or occlusion. Left common carotid artery: Unremarkable. No stenosis. No dissection or occlusion. Left internal carotid artery: Unremarkable extracranial segment. No stenosis. No dissection or occlusion. Left external carotid artery: Unremarkable. No occlusion or stenosis of the origin. Left vertebral artery: Dominant. No stenosis. No dissection or occlusion. NECK: Bones/joints: Redemonstrated mild loss of vertebral body height presumed from multilevel degenerative change. No acute fracture. Central canal and foraminal stenosis most pronounced at C3-C4 and C6-C7. Prominent anterior osteophyte at C5-C6. Soft tissues: Somewhat patulous esophagus. No significant soft tissue swelling. IMPRESSION: 1. No acute findings. 2. Dominant left vertebral artery. 3. Prominent anterior C5-C6 marginal osteophyte. This sometimes can be a cause of dysphagia. Consider modified barium swallow with speech pathology. 4. Somewhat patulous esophagus. COMMENT: Reference per NASCET criteria for degree of stenosis: Mild: less than 50% stenosis. Moderate: 50-69% stenosis. Severe: 70-94% stenosis. Near occlusion: 95-99% stenosis. Dictated and Authenticated by: Jameel Galicia MD. Ordering:JANENE George MD
--- NOTE | 2019-08-06 07:59 | DI.VRAD_ITS ---
PROCEDURE INFORMATION: Exam: XR Chest, 1 View Exam date and time: 08/06/2019 7:17 AM Age: 53 years old Clinical history: Other: ? Stroke like symptoms; Additional info: Lt sided stroke like symptoms and globus sensation TECHNIQUE: Imaging protocol: XR of the chest Views: 1 view. COMPARISON: CR CHEST 2 VIEWS PA,LAT 07/26/2017 8:23 PM FINDINGS: Lungs: Unremarkable. No consolidation. Pleural space: Unremarkable. No pleural effusion. No pneumothorax. Heart/Mediastinum: Unremarkable. No cardiomegaly. Bones/joints: Unremarkable. IMPRESSION: No acute findings. Dictated and Authenticated by: Jameel Galicia MD. Ordering:JANENE George MD
[2019-08-06 08:01] LABS: Prothrombin Time 9.8 sec (9.3-11.0)
[2019-08-06 08:06] LABS: Abs Immature Grans 0.03 k/cumm (0.0-0.09); Absolute Basophil Count 0.03 k/cumm (0.0-0.2); Absolute Eosinophil Count 0.18 k/cumm (0.0-0.7); Absolute Lymphocyte Count 1.83 k/cumm (1.2-3.4); Absolute Monocyte Count 0.57 k/cumm (0.11-0.7); Absolute Neutrophil Count 3.66 k/cumm (1.2-6.7); Basophils % 0.5; Eosinophils % 2.9; HCT 43.2 % (40.0-50.0); HGB 14.8 g/dL (13.5-17.5); Immature Grans % 0.5; Mean Corp. HGB Concentration 34.3 g/dL (32.0-36.0); Mean Corpuscular Hemoglobin 29.8 pg (27.0-33.0); Mean Corpuscular Volume 87.1 fL (80-95); Neutrophils % 58.1; Platelet Count 263 x1000/uL (130-400); RBC 4.96 m/cumm (4.50-6.00); RBC Distribution Width 13.4 % (11.8-14.1)
[2019-08-06 08:08] LABS: ALT 33 U/L (16-63); AST 25 U/L (15-37); Alkaline Phosphatase 119 U/L (46-116); Anion Gap 11.1 mmol/L (3-11); BUN 17 mg/dL (7-18); Bilirubin, Total 0.6 mg/dL (0.2-1.0); CO2 26.9 mmol/L (21.0-32.0); CREATININE 1.12 mg/dL (0.70-1.30); Calcium 8.9 mg/dL (8.5-10.1); Chloride 101 mmol/L (98-107); Glucose 112 mg/dL (74-106); Potassium 3.8 mmol/L (3.5-5.1); Sodium 139 mmol/L (136-145); Total Protein 7.6 g/dL (6.4-8.2); Troponin I < 0.05 ng/Ml (<0.06)
[2019-08-06] MEDS: Aspirin 81 MG CHEW 162 MG PO (08:19)
[2019-08-06] MEDS: Clopidogrel 300 MG TAB 600 MG PO (08:20)
[2019-08-08 13:29] LABS: Tacrolimus 7.8 ng/mL (See Note)
== END 2019-08-06 08:45 | disposition short-term general hospital (02) ==
PROVIDERS: Emergency Provider Student in an Organized Health Care Education/Training Program; PCP Family Medicine
DX: G45.9 Transient cerebral ischemic attack, unspecified (principal); R29.703 NIHSS score 3; R27.0 Ataxia, unspecified; I10 Essential (primary) hypertension; E11.9 Type 2 diabetes mellitus without complications
CPT/HCPCS: 36415; 70496; 70498; 80053; 93005; 99285; 71045; 80197; 84443; 84484; 85025; 85610; 85730; 93010; J3490

== ENCOUNTER 2019-08-08 12:03 | Emergency (ER) | payer BC, SELFPAY ==
[2019-08-08] MEDS: Normal Saline Flush 10 ML SYR IVP (12:05)
[2019-08-08 12:07] VITALS: BP 174/86; PULSE 82; RESP 16; TEMP 36.6; O2SAT 99
[2019-08-08 12:10] VITALS: BP 174/86; PULSE 82; PULSE 86; RESP 18; O2SAT 97
[2019-08-08] MEDS: Normal Saline 1,000 ML 1000 ML IV (12:25)
[2019-08-08] MEDS: Prochlorperazine 10 MG/2 ML VIAL 5 MG IVP (12:31)
[2019-08-08 12:38] LABS: Anion Gap 8.7 mmol/L (3-11); BUN 11 mg/dL (7-18); CO2 27.3 mmol/L (21.0-32.0); CREATININE 1.18 mg/dL (0.70-1.30); Calcium 9.1 mg/dL (8.5-10.1); Chloride 102 mmol/L (98-107); Glucose 115 mg/dL (74-106); Potassium 4.2 mmol/L (3.5-5.1); Sodium 138 mmol/L (136-145)
--- NOTE | 2019-08-08 13:02 | DI.CT_ITS ---
EXAM: CT HEAD WO CLINICAL HISTORY: recent CVA w acute head pain TECHNIQUE: Noncontrast COMPARISON: CT BRAIN NECK CTA from 08/06/2019 FINDINGS: No intracranial hemorrhage, mass or infarct is seen. The ventricles are normal in size. There is no significant atrophy. No white matter lucencies are identified. There is no evidence of skull fract ure. The sinuses and mastoid air cells are unremarkable. IMPRESSION: Negative head CT.
--- NOTE | 2019-08-08 13:04 | ED.GENADUL_ITS ---
Discharge Plan Disposition Patient Disposition: HOME Condition: Improving Discharge Details Chief Complaint: Headache Clinical Impression: Headache Primary Care Provider: Anna Mullen V ED Provider: Immanuel Lee Home Meds and New Rx's Prescriptions: New prochlorperazine maleate 10 mg tablet 10 mg PO Q6H PRN (Reason: Nausea/headache) Qty: 10 RF: 0 No Action sildenafil [Viagra] 100 mg tablet 100 mg PO PRN PRNRF: 0 meclizine 25 mg tablet 25 mg PO TID PRNRF: 0 nitroglycerin [Nitrostat] 0.4 mg tablet, sublingual 0.4 mg SL Q5M PRNRF: 0 lidocaine [Lidoderm] 5 % adhesive patch,medicated 1 patch TP DAILY PRNRF: 0 valacyclovir 1 gram tablet 2,000 mg PO PRN PRNRF: 0 polyethylene glycol 3350 [Miralax] 17 gram/dose powder 17 gm PO PRN PRNRF: 0 omega-3 fatty acids [Fish Oil Concentrate] 1,000 mg capsule 1,000 mg PO DAILY RF: 0 multivitamin [Daily Multi-Vitamin] 1 EACH tablet 1 ea PO DAILY RF: 0 levothyroxine 175 MCG tablet 150 mcg PO DAILY RF: 0 aspirin [Aspirin Low-Strength] 81 MG tablet,chewable 81 mg PO DAILY RF: 0 trazodone 50 MG tablet 50 mg PO HS RF: 0 magnesium gluconate 27 MG tablet 27 mg PO DAILY RF: 0 tacrolimus [Prograf] 1 MG capsule 2 mg PO QAM RF: 0 venlafaxine 150 MG tablet extended release 24hr 225 mg PO DAILY RF: 0 mycophenolate mofetil [CellCept] 250 mg capsule 250 mg PO 2 CAPS BID RF: 0 lisinopril 20 mg tablet 30 mg PO BID RF: 0 pantoprazole 40 MG tablet,delayed release (DR/EC) 40 mg PO BID RF: 0 gabapentin 300 MG capsule 300 mg PO QAM RF: 0 gabapentin 300 MG capsule 900 mg PO HS RF: 0 ondansetron 4 MG tablet,disintegrating 4 mg PO Q6H PRN PRN (Reason: Nausea / Vomiting) Qty: 20 RF: 0 tacrolimus [Prograf] 1 mg Capsule 1 mg PO HS RF: 0 acetaminophen [Tylenol] 325 MG tablet 650 mg PO Q4H PRN PRNRF: 0 albuterol sulfate 2.5 MG/3 ML solution for nebulization 2.5 mg UPD Q2H PRN PRNRF: 0 docusate sodium [Colace] 100 MG capsule 100 mg PO TID PRN PRNRF: 0 atorvastatin [Lipitor] 20 mg Tablet 20 mg PO DAILY RF: 0 clopidogrel [Plavix] 75 mg Tablet 75 mg PO DAILY RF: 0 Discharge Instructions Instructions: General Headache (ED) Additional Instructions: 1. Drink plenty of fluids. 2. Continue all medications as prescribed. 3. Acetaminophen 1000mg every 4 hours (up to 5 time a day) and/or ibuprofen 600mg every 6 hours as needed for fever or pain. 4. Trial Compazine 10 mg every 6 hours as needed for nausea or headache. Return to the Emergency Department (ED) if your condition worsens, does not improve as expected, or for ANY other concerns. Specifically, return if you have new or uncontrolled pain, worsening fever, difficulty breathing, vomiting, or are unable to drink fluids. Medical Decision Making 53-year-old gent with a recent CVA presents with increased head pain and hypertension. Pain localized to his posterior neck and radiating towards his first else. On initial evaluation, denies previous history of similar symptoms. However later, acknowledges he had a remote history of atypical migraines which had similar sensation. Nonfocal exam including a nonfocal neurological exam. Clinical improved after receiving IV crystalloid and IV prochlorperazine. Noncontrast head CT negative for evidence of acute intracranial bleeding or process. On reevaluation, patient clinically improved and acknowledges that his pain now subjectively similar to remote migraine headaches. Discharged with a plan for aggressive hydration, OTC analgesia, oral prochlorperazine, and outpati ent follow-up as needed. Given usual and customary return instructions prior to discharge. Medical Records Medical records reviewed: Yes I reviewed the patient's medical records. Imaging Data Radiologic Study: Imaging: CT Scan (Noncontrast head) My impression: No acute intracranial process. Interpreted independently contemporaneously by myself Radiologist's impression: Same Lab Data Lab results reviewed: Yes I reviewed the patient's lab results. Lab results narrative: CBC, BMP normal ECG Data Attestation: I personally reviewed and interpreted this ECG (s) as follows: Prior ECG tracings: available for review Interpretation: NSR 80 bpm. Normal axis and intervals. No acute ST changes. QTc 400 HPI 53-year-old gentleman with a past medical history which includes CVA, hypertension, hypothyroidism, migraine headaches, and a pancreas transplant. Discharged yesterday [place] [facility] [place] for a CVA. Symptoms included difficulty with swallowing, left-sided weakness. Management included initiation of Lipitor and Plavix in addition to his baseline aspirin. Presents with persistent atypical head pain since yesterday evening. Pain localized in his bilateral lower neck and radiating towards his frontalis. Has associated photophobia. Symptoms subjectively different than previous migraine headaches. Onset was also associated with measured hypertension. Denies acceleration of any neurological symptoms including no change in his ability to swallow, phonate, or use his left side. Took his first dose of Lipitor and Plavix yesterday. General Date/Time Provider Initiated Documentation: 08/08/19 12:19 . Related Data Home Medications Medication Instructions Recorded Confirmed aspirin [Aspirin Low-Strength] 81 mg PO DAILY tab-cap 08/21/14 08/08/19 levothyroxine 150 mcg PO DAILY tab-cap 08/21/14 08/08/19 multivitamin [Daily Multi-Vitamin] 1 ea PO DAILY 08/21/14 08/08/19 magnesium gluconate 27 mg PO DAILY 10/12/14 08/08/19 trazodone 50 mg PO HS tab-cap 10/12/14 08/08/19 gabapentin 300 mg PO QAM 05/15/16 08/08/19 pantoprazole 40 mg PO BID 05/15/16 08/08/19 tacrolimus [Prograf] 2 mg PO QAM 07/22/17 08/08/19 venlafaxine 225 mg PO DAILY tab-cap 07/22/17 08/08/19 acetaminophen [Tylenol] 650 mg PO Q4H PRN PRN tab 07/31/17 08/08/19 albuterol sulfate 2.5 mg UPD Q2H PRN PRN vial 07/31/17 08/08/19 docusate sodium [Colace] 100 mg PO TID PRN PRN cap 07/31/17 08/08/19 gabapentin 900 mg PO HS 10/12/17 08/08/19 ondansetron 4 mg PO Q6H PRN PRN #20 tab.rapdis 10/12/17 08/08/19 lidocaine 5 % topical patch 1 patch TP DAILY PRN 10/18/18 08/08/19 omega-3 fatty acids 1,000 mg 1,000 mg PO DAILY 10/18/18 08/08/19 capsule polyethylene glycol 3350 17 17 gm PO PRN PRN 10/18/18 08/08/19 gram/dose oral powder valacyclovir 1 gram tablet 2,000 mg PO PRN PRN tab 10/18/18 08/08/19 meclizine 25 mg tablet 25 mg PO TID PRN 03/29/19 08/08/19 mycophenolate mofetil 250 mg 250 mg PO 2 CAPS BID tab-cap 03/29/19 08/08/19 capsule nitroglycerin 0.4 mg sublingual 0.4 mg SL Q5M PRN 03/29/19 08/08/19 tablet sildenafil 100 mg tablet 100 mg PO PRN PRN 03/29/19 08/08/19 lisinopril 20 mg tablet 30 mg PO BID tab-cap 04/11/19 08/08/19 tacrolimus [Prograf] 1 mg PO HS 04/14/19 08/08/19 atorvastatin [Lipitor] 20 mg PO DAILY 08/08/19 08/08/19 clopidogrel [Plavix] 75 mg PO DAILY 08/08/19 08/08/19 prochlorperazine maleate 10 mg PO Q6H PRN #10 tab 08/08/19 Previous Rx's Medication Instructions Recorded acetaminophen [Tylenol] 650 mg PO Q4H PRN PRN tab 07/31/17 albuterol sulfate 2.5 mg UPD Q2H PRN PRN vial 07/31/17 docusate sodium [Colace] 100 mg PO TID PRN PRN cap 07/31/17 ondansetron 4 mg PO Q6H PRN PRN #20 tab.rapdis 10/12/17 prochlorperazine maleate 10 mg PO Q6H PRN #10 tab 08/08/19 Allergies Allergy/AdvReac Type Severity Reaction Status Date / Time metoclopramide HCl Allergy Intermediate TARDIIVE Unverified 08/08/19 12:12 [From Reglan] DYSKINESIA oxycodone HCl [From Percocet] Allergy Intermediate Unverified 08/08/19 12:12 simvastatin [From Zocor] Allergy Intermediate MYOCLONUS Unverified 08/08/19 12:12 esomeprazole magnesium AdvReac Diarrhea Unverified 08/08/19 12:12 [From Nexium] DIMOTROPE Allergy Mild Uncoded 08/08/19 12:12 ORNADE DIMOTROPE Allergy Unknown Uncoded 08/08/19 12:12 General Stated Complaint: Headache ROBIN: 2 Review of Systems All systems reviewed & are unremarkable except as noted in HPI and below PFSH Medical History Atopic dermatitis (Acute) Colonoscopy planned (Acute) Depression Dizziness (Acute) Dyspnea on exertion (Chronic) Fever of unknown origin (Acute) Gastroparesis (Chronic) Hernia (Chronic) History of CVA (cerebrovascular accident) History of diabetes mellitus HTN (hypertension) Hyponatremia (Acute) Hypothyroidism (acquired) Left hemiparesis (Chronic) Lumbar back pain (Acute) Migraine Near syncope (Acute) Pancreas transplanted Right shoulder pain (Acute) Vertigo (Acute) Surgical History History of appendectomy (Chronic) History of arthroscopic knee surgery (Chronic) History of colonoscopy (Chronic) 2015-pitting of colonic mucosa History of esophagogastroduodenoscopy (EGD) (Chronic) History of pancreas transplant (Resolved) History of shoulder surgery (Chronic) R shoulder Family History Other Heart disease Social History Smoking/Tobacco Use Status: Never Alcohol Intake: never Drug use: Never Substance use type: does not use Do you feel safe at home: Yes Do you feel safe in your relationship?: Yes Exam Narrative Exam Narrative: Nursing note and vital signs have been reviewed and noted. GENERAL: alert, active, no acute distress, well -hydrated, well-nourished HEENT: atraumatic/normocephalic, PERRLA, EOMI, conjunctiva clear, external ears/canals normal, nasal mucosa normal NECK: supple, full range of motion, no mass, normal lymphadenopathy, no thyromegaly; palpation not associated with change in subjective head pain CARDIOVASCULAR: RRR, no murmurs, nl pulses, no edema PULMONARY: nl effort, no audible wheezing or stridor, nl breath sounds with no focal deficit. no chest wall tenderness ABDOMEN: soft, non-tender, non-distended, no mass, no organomegaly EXTREMITY: normal muscle tone, all joints with FROM, no deformity or tenderness SKIN: no exanthem appreciated NEURO: gross motor exam normal, normal stance and gait PSYCH: alert and oriented, Course Vital Signs Vital signs: Vital Signs Temperature 97.9 F 08/08/19 12:07 Pulse 82 08/08/19 12:07 Respiratory Rate 16 08/08/19 12:07 Blood Pressure 174/86 H 08/08/19 12:07 Pulse Oximetry 99 08/08/19 12:07 Temperature 97.9 F 08/08/19 12:07 Temperature Source Skin 08/08/19 12:07 Pulse 86 08/08/19 12:10 Pulse 82 08/08/19 12:10 Respiratory Rate 18 08/08/19 12:10 Respiratory Effort Non-Labored 08/08/19 12:07 Blood Pressure 174/86 H 08/08/19 12:10 Blood Pressure Mean 103 08/08/19 12:10 Blood Pressure Position Sitting 08/08/19 12:07 Pulse Oximetry 97 08/08/19 12:10 Pain Level 4 08/08/19 12:31 Lab/Test Results Lab/Test Results: Laboratory Tests Range/Units 08/08/19 08/08/19 08/08/19 12:05 12:43 12:43 WBC Cancelled RBC Cancelled Hgb Cancelled Hct Cancelled MCV Cancelled MCH Cancelled MCHC Cancelled RDW Cancelled Plt Count Cancelled MPV Cancelled Immature Gran % Cancelled Neutrophils % Cancelled Band Neutrophils % Cancelled Lymphocytes % Cancelled Atypical Lymphs % Cancelled Monocytes % Cancelled Eosinophils % Cancelled Basophils % Cancelled Metamyelocytes % Cancelled Myelocytes % Cancelled Promyelocytes % Cancelled Absolute Neutrophils Cancelled Absolute Lymphocytes Cancelled Absolute Monocytes Cancelled Absolute Eosinophils Cancelled Absolute Basophils Cancelled Nucleated RBCs Cancelled Differential Comment Cancelled Other Cell Type Cancelled RBC Morphology Cancelled Polychromasia Cancelled Hypochromasia Cancelled Poikilocytosis Cancelled Basophilic Stippling Cancelled Anisocytosis Cancelled Microcytosis Cancelled Macrocytosis Cancelled Spherocytes Cancelled Target Cells Cancelled Tear Drop Cells Cancelled Ovalocytes Cancelled Stomatocytes Cancelled [place] Bodies Cancelled [place] Cells Cancelled Acanthocytes (Spur) Cancelled Schistocytes Cancelled Sodium (136-145) mmol/L 138 Cancelled Potassium (3.5-5.1) mmol/L 4.2 Cancelled Chloride (98-107) mmol/L 102 Cancelled Carbon Dioxide (21.0-32.0) mmol/L 27.3 Cancelled Anion Gap (3-11) mmol/L 8.7 Cancelled BUN (7-18) mg/dL 11 D Cancelled Creatinine (0.70-1.30) mg/dL 1.18 Cancelled Estimated GFR/1.73 m2 (mL/min/1.73m2) >= 60.00 Cancelled Glucose (74-106) mg/dL 115 H Cancelled Calcium (8.5-10.1) mg/dL 9.1 Cancelled
[2019-08-08 13:48] VITALS: BP 131/85; PULSE 72; RESP 14; TEMP 36.8; O2SAT 96
== END 2019-08-08 13:54 | disposition home or self-care (01) ==
PROVIDERS: Emergency Provider Emergency Medicine; PCP Family Medicine
DX: R51 Headache (principal); I63.9 Cerebral infarction, unspecified; Z94.83 Pancreas transplant status; I10 Essential (primary) hypertension
CPT/HCPCS: 80048; 93005; 96361; 96374; 99285; 70450; 85025; 93010; 99284; J0780

== ENCOUNTER 2019-11-03 11:06 | Outpatient (CLI) | payer BC, SELFPAY ==
--- NOTE | 2019-11-03 | DI.RAD_ITS ---
EXAM: XR CHEST 2V PA LATERAL CLINICAL HISTORY: FEVER, R50.9, COUGH, R05, RAPID FLU AND STREP NEG, ON IMMUNOSUPPRESSANTS TECHNIQUE: 2D digital imaging was performed. COMPARISON: No exams were available for comparison FINDINGS: MEDIASTINUM: Normal. HEART: Normal. PULMONARY VASCULATURE: Normal. LUNGS: Clear. PLEURAL SPACE: No pleural effusion or pneumothorax. BONE:Normal. OTHER FINDINGS:Normal. IMPRESSION: No acute pulmonary findings. DATA REPOSITORY: RADIATION DOSE DELIVERED:
== END 2019-11-03 11:26 ==
PROVIDERS: PCP Family Medicine; Visit Provider Nurse Practitioner Family
DX: R50.9 Fever, unspecified (principal); R05 Cough
CPT/HCPCS: 71046

== ENCOUNTER 2019-11-26 00:47 | Outpatient (CLI) | payer BC, SELFPAY ==
[2019-11-26 10:22] LABS: Abs Immature Grans 0.02 k/cumm (0.0-0.09); Absolute Basophil Count 0.03 k/cumm (0.0-0.2); Absolute Eosinophil Count 0.19 k/cumm (0.0-0.7); Absolute Lymphocyte Count 4.29 k/cumm (1.2-3.4); Absolute Monocyte Count 0.64 k/cumm (0.11-0.7); Absolute Neutrophil Count 3.64 k/cumm (1.2-6.7); Basophils % 0.3; Eosinophils % 2.2; HCT 41.7 % (40.0-50.0); HGB 14.3 g/dL (13.5-17.5); Immature Grans % 0.2 %; Lymphocytes % 48.7; Mean Corp. HGB Concentration 34.3 g/dL (32.0-36.0); Mean Corpuscular Hemoglobin 29.7 pg (27.0-33.0); Mean Corpuscular Volume 86.7 fL (80-95); Mean Platelet Volume 9.7 fL (8.0-11.0); Monocytes % 7.3; Neutrophils % 41.3; Platelet Count 292 x1000/uL (130-400); RBC 4.81 m/cumm (4.50-6.00); RBC Distribution Width 13.4 % (11.8-14.1); White Blood Cell Count 8.81 k/cumm (4.4-10.8)
[2019-11-26 10:24] LABS: Bilirubin Negative (Negative); Blood Negative (Negative); Clarity Clear (Clear); Glucose Negative (Negative); Ketones Negative (Negative); Leukocyte Esterase Negative (Negative); Nitrite Negative (Negative); Specific Gravity 1.015 (1.005-1.025)
[2019-11-26 11:42] LABS: Cholesterol 126 mg/dL (<200)
[2019-11-26 11:43] LABS: ALT 44 U/L (16-63); AST 28 U/L (15-37); Albumin 4.2 g/dL (3.4-5.0); Alkaline Phosphatase 126 U/L (46-116); Amylase 53 U/L (25-115); Anion Gap 7.1 mmol/L (3-11); BUN 15 mg/dL (7-18); Bilirubin, Total 0.9 mg/dL (0.2-1.0); CO2 27.9 mmol/L (21.0-32.0); CREATININE 1.06 mg/dL (0.70-1.30); Calcium 9.4 mg/dL (8.5-10.1); Chloride 96 mmol/L (98-107); Glucose 101 mg/dL (74-106); Lipase 97 U/L (73-393); Magnesium 1.5 mg/dL (1.8-2.4); PHOSPHORUS 3.7 mg/dL (2.6-4.7); Potassium 5.1 mmol/L (3.5-5.1); Sodium 131 mmol/L (136-145); Total Protein 7.6 g/dL (6.4-8.2); Uric Acid 5.5 mg/dL (3.5-7.2)
[2019-11-26 13:07] LABS: COMMENT (LAB VIEW ONLY) 29.32 mg/dL; PROTEIN < 6.0 mg/dL
[2019-11-28 05:11] LABS: Hemoglobin A1C 5.9 % (3.8-5.6)
[2019-11-28 15:06] LABS: Tacrolimus 7.2 ng/mL (See Note)
== END 2019-11-26 01:07 ==
PROVIDERS: PCP Family Medicine; Visit Provider Internal Medicine Nephrology
DX: Z94.83 Pancreas transplant status (principal); Z79.899 Other long term (current) drug therapy; Z29.8 Encounter for other specified prophylactic measures
CPT/HCPCS: 80053; 83690; 80197; 81003; 82150; 82465; 82565; 83036; 83735; 84100; 84156; 84550; 85025

== ENCOUNTER 2020-02-08 06:21 | Day surgery (SDC) | payer BC, SELFPAY ==
[2020-02-08 06:25] VITALS: BP 131/73; PULSE 78; RESP 18; TEMP 36.5; O2SAT 100
--- NOTE | 2020-02-08 07:34 | W.PM.DSUDISC ---
Documented by User: Tatiannaronda Dunbar 02/08/20 07:35 Discharge Plan Disposition Patient Disposition: HOME Condition: Good Discharge Details Reason For Visit: right middle finger trigger finger Attending Provider: Kavon Harvey Primary Care Provider: Anna Mullen V Home Meds and New Rx's Prescriptions: Continued sildenafil [Viagra] 100 mg tablet 100 mg PO PRN PRNRF: 0 meclizine 25 mg tablet 25 mg PO TID PRNRF: 0 nitroglycerin [Nitrostat] 0.4 mg tablet, sublingual 0.4 mg SL Q5M PRNRF: 0 verapamil 120 mg tablet extended release 120 mg PO DAILY RF: 0 lidocaine [Lidoderm] 5 % adhesive patch,medicated 1 patch TP DAILY PRNRF: 0 valacyclovir 1 gram tablet 2,000 mg PO PRN PRNRF: 0 polyethylene glycol 3350 [Miralax] 17 gram/dose powder 17 gm PO PRN PRNRF: 0 omega-3 fatty acids [Fish Oil Concentrate] 1,000 mg capsule 1,000 mg PO DAILY RF: 0 multivitamin [Daily Multi-Vitamin] 1 EACH tablet 1 ea PO DAILY RF: 0 levothyroxine 175 MCG tablet 150 mcg PO DAILY RF: 0 trazodone 50 MG tablet 50 mg PO HS RF: 0 magnesium gluconate 27 MG tablet 27 mg PO DAILY RF: 0 tacrolimus [Prograf] 1 MG capsule 2 mg PO QAM RF: 0 venlafaxine 150 MG tablet extended release 24hr 225 mg PO DAILY RF: 0 mycophenolate mofetil [CellCept] 250 mg capsule 250 mg PO 2 CAPS BID RF: 0 lisinopril 20 mg tablet 30 mg PO BID RF: 0 pantoprazole 40 MG tablet,delayed release (DR/EC) 40 mg PO BID RF: 0 gabapentin 300 MG capsule 300 mg PO QAM RF: 0 gabapentin 300 MG capsule 900 mg PO HS RF: 0 ondansetron 4 MG tablet,disintegrating 4 mg PO Q6H PRN PRN (Reason: Nausea / Vomiting) Qty: 20 RF: 0 tacrolimus [Prograf] 1 mg Capsule 1 mg PO HS RF: 0 acetaminophen [Tylenol Extra Strength] 500 mg Tablet 1,000 mg PO Q6H PRNRF: 0 albuterol sulfate 2.5 MG/3 ML solution for nebulization 2.5 mg UPD Q2H PRN PRNRF: 0 docusate sodium [Colace] 100 MG capsule 100 mg PO TID PRN PRNRF: 0 clopidogrel [Plavix] 75 mg Tablet 75 mg PO HS RF: 0 prochlorperazine maleate 10 mg tablet 10 mg PO Q6H PRN (Reason: Nausea/headache) Qty: 10 RF: 0 atorvastatin [Lipitor] 20 mg tablet 10 mg PO HS RF: 0 Discharge Instructions Stand Alone Forms: Wes Connor Finger Release Referrals: Kavon Harvey MD [ [facility] STAFF PHYSICIAN] - Activity:: Elevate Remove Dressings/Wound Care:: 48 hours Shower/Bathe:: 48 hours Diet:: As Tolerated Discharge Orders Discharge Orders: Discharge Order (Routine); Ordered 02/08/20 Ordered By: Kavon Harvey DS: Diagnosis Discharge Diagnosis (1) Trigger finger, right middle finger: Status: Acute Documented by User: Kavon Harvey MD 02/08/20 07:49 Discharge Plan Disposition Patient Disposition: HOME Condition: Good Discharge Details Reason For Visit: right middle finger trigger finger Attending Provider: Kavon Harvey Primary Care Provider: Anna Mullen V Home Meds and New Rx's Prescriptions: Continued sildenafil [Viagra] 100 mg tablet 100 mg PO PRN PRNRF: 0 meclizine 25 mg tablet 25 mg PO TID PRNRF: 0 nitroglycerin [Nitrostat] 0.4 mg tablet, sublingual 0.4 mg SL Q5M PRNRF: 0 verapamil 120 mg tablet extended release 120 mg PO DAILY RF: 0 lidocaine [Lidoderm] 5 % adhesive patch,medicated 1 patch TP DAILY PRNRF: 0 valacyclovir 1 gram tablet 2,000 mg PO PRN PRNRF: 0 polyethylene glycol 3350 [Miralax] 17 gram/dose powder 17 gm PO PRN PRNRF: 0 omega-3 fatty acids [Fish Oil Concentrate] 1,000 mg capsule 1,000 mg PO DAILY RF: 0 multivitamin [Daily Multi-Vitamin] 1 EACH tablet 1 ea PO DAILY RF: 0 levothyroxine 175 MCG tablet 150 mcg PO DAILY RF: 0 trazodone 50 MG tablet 50 mg PO HS RF: 0 magnesium gluconate 27 MG tablet 27 mg PO DAILY RF: 0 tacrolimus [Prograf] 1 MG capsule 2 mg PO QAM RF: 0 venlafaxine 150 MG tablet extended release 24hr 225 mg PO DAILY RF: 0 mycophenolate mofetil [CellCept] 250 mg capsule 250 mg PO 2 CAPS BID RF: 0 lisinopril 20 mg tablet 30 mg PO BID RF: 0 pantoprazole 40 MG tablet,delayed release (DR/EC) 40 mg PO BID RF: 0 gabapentin 300 MG capsule 300 mg PO QAM RF: 0 gabapentin 300 MG capsule 900 mg PO HS RF: 0 ondansetron 4 MG tablet,disintegrating 4 mg PO Q6H PRN PRN (Reason: Nausea / Vomiting) Qty: 20 RF: 0 tacrolimus [Prograf] 1 mg Capsule 1 mg PO HS RF: 0 acetaminophen [Tylenol Extra Strength] 500 mg Tablet 1,000 mg PO Q6H PRNRF: 0 albuterol sulfate 2.5 MG/3 ML solution for nebulization 2.5 mg UPD Q2H PRN PRNRF: 0 docusate sodium [Colace] 100 MG capsule 100 mg PO TID PRN PRNRF: 0 clopidogrel [Plavix] 75 mg Tablet 75 mg PO HS RF: 0 prochlorperazine maleate 10 mg tablet 10 mg PO Q6H PRN (Reason: Nausea/headache) Qty: 10 RF: 0 atorvastatin [Lipitor] 20 mg tablet 10 mg PO HS RF: 0 Discharge Instructions Stand Alone Forms: Wes Connor Finger Release Referrals: Kavon Harvey MD [ [facility] STAFF PHYSICIAN] - Activity:: Elevate Remove Dressings/Wound Care:: 48 hours Shower/Bathe:: 48 hours Diet:: As Tolerated Discharge Orders Discharge Orders: Discharge Order (Routine); Ordered 02/08/20 Ordered By: Kavon Harvey
[2020-02-08] MEDS: Sodium Bicarbonate 50 MEQ/50 ML VIAL (08:07)
--- NOTE | 2020-02-09 06:34 | W.PM.OP ---
Date of service: 02/08/20 Time of Service: 07:53 Operative Note Operative Note DATE OF PROCEDURE: 02/08/20 PRE-OP DIAGNOSIS: Right middle finger trigger finger POST-OP DIAGNOSIS: same PROCEDURE: Trigger Finger Release -right middle finger SURGEON: Kavon Harvey ANESTHESIA: local PATHOLOGY: none sent COMPLICATIONS: None Patient was transported to: same day Patient's condition: stable Indications: I have seen Brant in clinic for symptoms of a trigger finger. The catching, clicking, locking, and pain limited function. The diagnosis of trigger finger was evident. The symptoms had not responded to conservative measures. I discussed trigger finger release with the patient. I reviewed the risks of the procedure to include, but not limited to, bleeding, infection, pain, stiffness, incomplete release, damage to nerves or vessels, continued catching, recurrence. Despite these risks, the patient elected to proceed. Findings: There was a tightened A1 tonie which was released. The flexor tendons were inspected and the patient was able to move the finger without any catching, clicking, or locking. Procedure Description: Brant was greeted in the preoperative holding area where the correct side was identified and marked. The consent was reviewed with the patient and signed. All questions were answered. Brant was taken back to the operating room. The patient was placed into the supine position on the operating room table with the right arm on an arm board. All bony prominences were well padded. No prophylactic antibiotics were administered since this was a clean, elective hand surgical case. The right arm was then prepped with Chloraprep and draped in a standard fashion with stockinette and extremity drape. A timeout to confirm correct identity, side and site, procedure, allergies, anesthesia, and medical concerns was performed. The surgical site was marked as a longitudinal incision directly over the A1 tonie of the involved digit. This was confirmed with palpation during finger flexion. This area, overlying the metacarpal head, was then anesthetized with 1% Lidocaine. The patient tolerated this well and once the anesthetic had setup, the procedure began. A longitudinal incision was made through skin only, approximately 1cm. The deep tissues were dissected bluntly. Once the A1 tonie and flexor tendons were identified the soft tissue including neurovascular structures were retracted medially and laterally. There were no crossing structures over the A1 tonie. The proximal edge of the tonie was identified and the tonie was incised with tenotomy scissors. There was a release of the tendons once this was fully released. The tendons were then removed from the wound and inspected. Excess synovium was resected. The tendons were then returned and the patient was asked to move the finger into deep flexion and back to extension. There was no recreation of the pre-operative symptoms. The hand was then once more inspected for any A0 tonie or area of possible constriction. The wound was then irrigated and the skin was closed with a 4-0 Nylon. This was dressed with gauze and a Conform dressing. The patient tolerated the procedure well and was returned to the Same Day Surgery area in a stable condition suffering no known complication.
== END 2020-02-08 08:05 | disposition home or self-care (01) ==
PROVIDERS: PCP Family Medicine; Visit Provider Student in an Organized Health Care Education/Training Program
PROC: (CPT 26055; principal; 2020-02-08 07:30)
DX: M65.331 Trigger finger, right middle finger (principal)
CPT/HCPCS: 26055

== ENCOUNTER 2020-03-19 01:43 | Outpatient (CLI) | payer BC, SELFPAY ==
--- NOTE | 2020-03-19 10:45 | DI.US_ITS ---
EXAM: US SOFT TISSUE EXTREMITY CLINICAL HISTORY: left mid-quadriceps region soft tissue mass, R22.42. TECHNIQUE: Ultrasound was performed using standard protocol. COMPARISON: No exams were available for comparison FINDINGS: Sonographic assessment utilizing grayscale and color Doppler imaging was performed and targeted to th e area of clinical concern. There is a 3.3 x 4.1 cm isoechoic homogeneous mass in the subcutaneous tissues of the left thigh keyshawn esponding to the palpable abnormality. Minimal internal color flow is noted. No posterior acoustic enhancement or shadowing. The underlying musculature appears unremarkable. IMPRESSION: 3.3 x 4.1 cm isoechoic homogeneous mass in the subcutaneous tissues of the left thigh corresponding t o the palpable abnormality. Sonographically primary diagnostic concern is for a lipoma. If there is continued clinical concern, an MRI may be considered for further evaluation. DATA REPOSITORY:
== END 2020-03-19 02:03 ==
PROVIDERS: PCP Family Medicine; Visit Provider Surgery
DX: R22.42 Localized swelling, mass and lump, left lower limb (principal)
CPT/HCPCS: 76881

== ENCOUNTER 2020-04-04 03:19 | Outpatient (CLI) | payer BC, SELFPAY ==
--- NOTE | 2020-04-04 06:45 | DI.MRI_ITS ---
EXAM: MR LOWER EXTREMITY LT WO CLINICAL HISTORY: SUBCUTANEOUS mass mid quads left leg,S/P PANCREAS TRANSPLANT,R22.42. TECHNIQUE: Multiplanar multisequence MRI was performed. COMPARISON: No exams were available for comparison FINDINGS: MR examination thigh was performed utilizing multiplanar imaging. Marker is placed anteriorly at the proximal thigh corresponding with the palpable abnormality. Recent ultrasound examination showed cheek spected lipoma. No mass is identified at this site by MR criteria. Underlying musculature and fascia appear normal. No bony signal abnormality seen. The hip joint and components appear intact as visualized. IMPRESSION: No mass identified surveyed. Lipoma was suspected recent ultrasound examination and the MR findings are consistent with lipoma. DATA REPOSITORY:
== END 2020-04-04 03:39 ==
PROVIDERS: PCP Family Medicine; Visit Provider Surgery
DX: R22.42 Localized swelling, mass and lump, left lower limb (principal)
CPT/HCPCS: 73718

== ENCOUNTER 2020-04-20 03:50 | Outpatient (CLI) | payer BC, SELFPAY ==
--- NOTE | 2020-04-20 09:26 | DI.CT_ITS ---
EXAM: CT HEAD WO CLINICAL HISTORY: hx of prior right-sided stroke/ left leg weakness,HYPERTENSION,R29.898. TECHNIQUE: Imaging Protocol: Axial computed tomography images with coronal and sagittal reformatted images were created and reviewed COMPARISON: CT CT HEAD WO from 08/08/2019 FINDINGS: Ventricles and Extra axial spaces: Normal in size and morphology for the patient's age. Hemorrhage: None. Cerebral parenchyma: Normal. Midline shift: None. Brainstem/Cerebellum: Normal. Calvarium: Normal. Visualized Paranasal sinuses/Mastoids: Clear. IMPRESSION: No acute intracranial process. RADIATION DOSE DELIVERED: 771.02mGy.cm Total DLP DATA REPOSITORY: All CT scans at this facility are submitted to the National Radiology Data Registry (NRDR) Dose Index Registry (DIR) with the [employer] ([employer]). RADIATION OPTIMIZATION: All CT scans at this facility use at least one of these dose optimization te chniques: automated exposure control; mA and/or kV adjustment per patient size (includes targeted exa ms where dose is matched to clinical indication); or iterative reconstruction.
--- NOTE | 2020-04-20 10:30 | DI.MRI_ITS ---
EXAM: MR LUMBAR SPINE WO CLINICAL HISTORY: weakness lt leg,DORSALGIA, H/O SPINAL SURGERY,M54.9. TECHNIQUE: Multiplanar multisequence MRI of the Lumbar spine was performed. COMPARISON: MR MRI - LUMBAR SPINE WO CONTRAST from 08/01/2015 FINDINGS: The exam is limited by patient motion. Patient was having muscle spasms during the examination. Bones: The last intervertebral disc space is designated the L5/S1 level for the numbering purpose of this examination. The vertebral body heights are well maintained. There is a moderate dextroscolios is. There are degenerative signal changes in the vertebral endplates.. Cord: The conus tip ends at the T12 level. It is of normal size and signal intensity. T12-L1: No disc herniations or bulges are present. No central spinal canal or neural foraminal stenos is. L1-2: Broad-based disc osteophytes. Bilateral neural foraminal narrowing, left greater than right. Facet degenerative changes. L2-3: Broad-based disc osteophytes. Left paracentral disc protrusion. Severe left neural foraminal narrowing. Mild central canal stenosis. L3-4: Mild broad-based disc osteophytes. Mild ligamentous hypertrophy and mild facet degenerative ch anges. Moderate left neural foraminal narrowing. No significant central canal stenosis. L4-5: Left laminectomy defect. Loss of disc height and broad-based disc osteophytes. Facet degenera tive changes. Severe bilateral neural foraminal narrowing. Moderate central canal stenosis. L5-S1: Disc osteophytes eccentric toward the right. Facet degenerative changes, right greater than l eft. Severe right neural foraminal narrowing. Moderate central canal stenosis. Soft tissues: The p araspinal soft tissues are unremarkable. IMPRESSION: Severely limited exam due to patient motion. Severe degenerative disc changes and facet degenerative changes causing severe neural foraminal narrowing at multiple levels. Left paracentral disc protrus ion at L2-3. Moderate central canal stenosis at L4-5 and L5-S1. DATA REPOSITORY:
== END 2020-04-20 04:10 ==
PROVIDERS: PCP Family Medicine; Visit Provider Surgery
DX: M51.36 Other intervertebral disc degeneration, lumbar region (principal); M48.061 Spinal stenosis, lumbar region without neurogenic claudication; M51.26 Other intervertebral disc displacement, lumbar region; R29.898 Other symptoms and signs involving the musculoskeletal system
CPT/HCPCS: 70450; 72148

== ENCOUNTER 2020-06-21 05:26 | Emergency (ER) | payer BC, SELFPAY ==
[2020-06-21 05:28] VITALS: BP 146/79; PULSE 83; RESP 16; TEMP 36.4; O2SAT 98
--- NOTE | 2020-06-21 05:33 | W.ED.GENAD ---
Discharge Plan Disposition Patient Disposition: HOME Condition: Stable Discharge Details Clinical Impression: Angioedema Primary Care Provider: Anna Mullen V ED Provider: Eriberto Esparza [place] Meds and New Rx's Prescriptions: New dexamethasone 4 mg tablet 10 mg PO DAILY 1 Days Qty: 3 RF: 0 Continued sildenafil [Viagra] 100 mg tablet 100 mg PO PRN PRNRF: 0 meclizine 25 mg tablet 25 mg PO TID PRNRF: 0 nitroglycerin [Nitrostat] 0.4 mg tablet, sublingual 0.4 mg SL Q5M PRNRF: 0 verapamil 120 mg tablet extended release 120 mg PO DAILY RF: 0 lidocaine [Lidoderm] 5 % adhesive patch,medicated 1 patch TP DAILY PRNRF: 0 valacyclovir 1 gram tablet 2,000 mg PO PRN PRNRF: 0 polyethylene glycol 3350 [Miralax] 17 gram/dose powder 17 gm PO PRN PRNRF: 0 omega-3 fatty acids [Fish Oil Concentrate] 1,000 mg capsule 1,000 mg PO DAILY RF: 0 multivitamin [Daily Multi-Vitamin] 1 EACH tablet 1 ea PO DAILY RF: 0 levothyroxine 175 MCG tablet 150 mcg PO DAILY RF: 0 trazodone 50 MG tablet 50 mg PO HS RF: 0 magnesium gluconate 27 MG tablet 27 mg PO DAILY RF: 0 tacrolimus [Prograf] 1 MG capsule 2 mg PO QAM RF: 0 venlafaxine 150 MG tablet extended release 24hr 225 mg PO DAILY RF: 0 mycophenolate mofetil [CellCept] 250 mg capsule 250 mg PO 2 CAPS BID RF: 0 pantoprazole 40 MG tablet,delayed release (DR/EC) 40 mg PO BID RF: 0 gabapentin 300 mg capsule 300 mg PO DIRECTED RF: 0 ondansetron 4 MG tablet,disintegrating 4 mg PO Q6H PRN PRN (Reason: Nausea / Vomiting) Qty: 20 RF: 0 tacrolimus [Prograf] 1 mg Capsule 1 mg PO HS RF: 0 acetaminophen [Tylenol Extra Strength] 500 mg Tablet 1,000 mg PO Q6H PRNRF: 0 albuterol sulfate 2.5 MG/3 ML solution for nebulization 2.5 mg UPD Q2H PRN PRNRF: 0 docusate sodium [Colace] 100 MG capsule 100 mg PO TID PRN PRNRF: 0 clopidogrel [Plavix] 75 mg Tablet 75 mg PO HS RF: 0 prochlorperazine maleate 10 mg tablet 10 mg PO Q6H PRN (Reason: Nausea/headache) Qty: 10 RF: 0 atorvastatin [Lipitor] 20 mg tablet 10 mg PO HS RF: 0 Discontinued lisinopril 20 mg tablet 30 mg PO BID RF: 0 Discharge Instructions Instructions: Angioedema (ED) Additional Instructions: you had evidence of very mild angioedema of your uvula stop taking the lisinopril until you discuss with your transplant team providers on what medication changes they would like to make if any if you feel more ill, have worsening difficulty breathing or swallowing return to the emergency department take the dexamethasone on Thursday unless you are completely asymptomatic (no feeling of any type of swelling) Medical Decision Making 54 yo male with hx of hypertension, type 1 diabetes s/p pancreatic transplant, history of migraine headaches, cva,, chronic low back pain with right-sided sciatica, hypothyroidism, GERD and gastroparesis, tardive dyskinesia who comes in with complaints of feeling his throat swelling upon awakening this morning and notes that he went to bed feeling fine denies new foods yesterday but did start hydralazine a week ago. He did not feel any bites or stings per patient. He arrives hd stable speaking in full sentences. He has no rashes, no abdominal tenderness, clear lungs, no stridor and swallowing normally. Has no findings on exam to suggest rpa, area captain, or epiglotitis on exam. When asked where he feels the swelling he points to the back of his throat and the very inferior portion of his uvula has very mild swelling no pain over hyoid and no restricted neck movements. Suspect mild angioedema, is on lisinopril. No evidence of anaphylaxis. Will tx with dexamethasone and monitor. pt feels mildy better, still talking in full sentences without stridor, drooling and swallowing normally and no restricted neck movements. He states his transplant team manages his BP meds. I recommended he call them to discuss changing his lisinopril. Will d/c with a prescription for another dose of dexamethasone in 2 days and return precautions given Differential Diagnosis Differential Diagnosis: angioedema, allergic reaction HPI General Mode of arrival: ambulatory. Date/Time Provider Initiated Documentation: 06/21/20 05:26. Limitations to Documentation: no limitations. Information obtained by: patient. History of Present Illness 54 year old M presents to the emergency department with the chief complaint of throat swollen, described as mild, and it has been constant. No relieving factors improve symptom(s), No exacerbating factors reported . Patient did receive the following treatments prior to arrival, none Related Data Home Medications Medication Instructions Recorded Confirmed levothyroxine 150 mcg PO DAILY tab-cap 08/21/14 04/04/20 multivitamin [Daily Multi-Vitamin] 1 ea PO DAILY 08/21/14 04/04/20 magnesium gluconate 27 mg PO DAILY 10/12/14 04/04/20 trazodone 50 mg PO HS tab-cap 10/12/14 04/04/20 pantoprazole 40 mg PO BID 05/15/16 04/04/20 tacrolimus [Prograf] 2 mg PO QAM 07/22/17 04/04/20 venlafaxine 225 mg PO DAILY tab-cap 07/22/17 04/04/20 albuterol sulfate 2.5 mg UPD Q2H PRN PRN vial 07/31/17 04/04/20 docusate sodium [Colace] 100 mg PO TID PRN PRN cap 07/31/17 04/04/20 ondansetron 4 mg PO Q6H PRN PRN #20 tab.rapdis 10/12/17 04/04/20 lidocaine 5 % topical patch 1 patch TP DAILY PRN 10/18/18 04/04/20 omega-3 fatty acids 1,000 mg 1,000 mg PO DAILY 10/18/18 04/04/20 capsule polyethylene glycol 3350 17 17 gm PO PRN PRN 10/18/18 04/04/20 gram/dose oral powder valacyclovir 1 gram tablet 2,000 mg PO PRN PRN tab 10/18/18 04/04/20 meclizine 25 mg tablet 25 mg PO TID PRN 03/29/19 04/04/20 mycophenolate mofetil 250 mg 250 mg PO 2 CAPS BID tab-cap 03/29/19 04/04/20 capsule nitroglycerin 0.4 mg sublingual 0.4 mg SL Q5M PRN 03/29/19 04/04/20 tablet sildenafil 100 mg tablet 100 mg PO PRN PRN 03/29/19 04/04/20 tacrolimus [Prograf] 1 mg PO HS 04/14/19 04/04/20 clopidogrel [Plavix] 75 mg PO HS 08/08/19 04/04/20 prochlorperazine maleate 10 mg PO Q6H PRN #10 tab 08/08/19 04/04/20 atorvastatin 20 mg tablet 10 mg PO HS tab 01/30/20 04/04/20 verapamil 120 mg tablet,extended 120 mg PO DAILY 01/30/20 04/04/20 release acetaminophen [Tylenol Extra 1,000 mg PO Q6H PRN 02/08/20 04/04/20 Strength] gabapentin 300 mg capsule 300 mg PO DIRECTED cap 05/15/20 dexamethasone 10 mg PO DAILY 1 Days #3 tab 06/21/20 Previous Rx's Medication Instructions Recorded albuterol sulfate 2.5 mg UPD Q2H PRN PRN vial 07/31/17 docusate sodium [Colace] 100 mg PO TID PRN PRN cap 07/31/17 ondansetron 4 mg PO Q6H PRN PRN #20 tab.rapdis 10/12/17 prochlorperazine maleate 10 mg PO Q6H PRN #10 tab 08/08/19 dexamethasone 10 mg PO DAILY 1 Days #3 tab 06/21/20 Allergies Allergy/AdvReac Type Severity Reaction Status Date / Time metoclopramide HCl Allergy Intermediate TARDIIVE Unverified 06/21/20 05:31 [From Reglan] DYSKINESIA oxycodone HCl [From Percocet] Allergy Intermediate Unverified 06/21/20 05:31 simvastatin [From Zocor] Allergy Intermediate MYOCLONUS Unverified 06/21/20 05:31 esomeprazole magnesium AdvReac Diarrhea Unverified 06/21/20 05:31 [From Nexium] DIMOTROPE Allergy Mild Uncoded 06/21/20 05:31 ORNADE DIMOTROPE Allergy Unknown Uncoded 06/21/20 05:31 General Stated Complaint: Sorethroat ROBIN: 4 Review of Systems All systems reviewed & are unremarkable except as noted in HPI and below Constitutional Constitutional: Denies chills, Denies fever(s) and Denies weakness Cardiovascular Cardiovascular: Denies chest pain and Denies dyspnea Respiratory Respiratory: Denies cough and Denies dyspnea Gastrointestinal Gastrointestinal: Denies abdominal pain, Denies nausea and Denies vomiting Genitourinary Genitourinary: Denies dysuria Musculoskeletal Musculoskeletal: Denies joint swelling Integumentary/Breasts Skin/Breast: Denies rash Neurologic Neurologic: Denies weakness Psychiatric Psychiatric: Denies depression [facility] Medical History (Updated 06/21/20 @ 06:21 by Eriberto Esparza MD) Atopic dermatitis Back pain with history of spinal surgery Carpal tunnel syndrome of right wrist (10/12/14) Depression Dyspnea on exertion Gastroparesis Hernia History of CVA (cerebrovascular accident) age 11 with chronic left weakness and numbness; and in 2019 with left ataxia, dysarthria and dysphagia (resolved) History of diabetes mellitus HTN (hypertension) Hyponatremia Hypothyroidism (acquired) Left hemiparesis Lumbar back pain Migraine Near syncope Pancreas transplanted Right shoulder pain Scoliosis Subcutaneous mass of left lower extremity Tardive dyskinesia (10/12/14) 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) Vertigo Weakness of left lower extremity Surgical History (Updated 02/17/20 @ 09:01 by MATT Saxena) History of appendectomy History of arthroscopic knee surgery Left History of carpal tunnel release Right History of colonoscopy 2015-pitting of colonic mucosa History of esophagogastroduodenoscopy (EGD) History of pancreas transplant History of shoulder surgery R shoulder Trigger finger, right middle finger S/P release on 02/08/2020 Family History Other Heart disease Social History (Updated 05/15/20 @ 16:51 by Maranda Duncan MD) Smoking/Tobacco Use Status: Never Alcohol Intake: never Drug use: Never Substance use type: does not use Household members: family Housing: house Pets and animals: Yes Pets and animals: cat(s) and dog(s) Current gender identity: male What is your relationship status?: Panel score (0-1 are the most socially isolated patients): 1 Seatbelt use: always Do you feel safe at home: Yes Do you feel safe in your relationship?: Yes Exam Const General: no acute distress Orientation: alert HENMT Head: normal to inspection Ears: external ears normal General nose exam: external nose normal Mouth: moist mucous membranes Eyes General: appearance normal, both eyes and all related structures Neck Neck: normal visual inspection Resp Effort & Inspection: normal respiratory effort and able to speak in complete sentences Cardio Rate: regular rate Skin General skin exam: no rashes or lesions noted Neuro General: patient alert and patient oriented x3 Extrem General: normal to inspection Psych Mental Status: mental status grossly normal Course Vital Signs Vital signs: Vital Signs Temperature 36.4 C L 06/21/20 05:28 Pulse 83 06/21/20 05:28 Respiratory Rate 16 06/21/20 05:28 Blood Pressure 146/79 H 06/21/20 05:28 Pulse Oximetry 98 06/21/20 05:28 Temperature 36.4 C L 06/21/20 05:28 Temperature Source Skin 06/21/20 05:28 Pulse 83 06/21/20 05:28 Respiratory Rate 16 06/21/20 05:28 Blood Pressure 146/79 H 06/21/20 05:28 Blood Pressure Position Sitting 06/21/20 05:28 Pulse Oximetry 98 06/21/20 05:28 Oxygen Delivery Method Room Air 06/21/20 05:28 Oxygen Flow Rate 0 06/21/20 05:28
[2020-06-21] MEDS: Dexamethasone 10 MG/ML VIAL PO (05:38)
== END 2020-06-21 06:30 | disposition home or self-care (01) ==
PROVIDERS: Emergency Provider Emergency Medicine; PCP Family Medicine
DX: T78.3XXA Angioneurotic edema, initial encounter (principal); T46.4X5A Adverse effect of angiotensin-converting-enzyme inhibitors, initial encounter; E10.43 Type 1 diabetes mellitus with diabetic autonomic (poly)neuropathy; I10 Essential (primary) hypertension; Z94.83 Pancreas transplant status
CPT/HCPCS: 99283; 99284; J1100

== ENCOUNTER 2020-08-23 15:52 | Outpatient (REF) | payer BC, SELFPAY | END 2020-08-23 16:12 | LOC: NCHCN 15:52 | PROVIDERS: PCP Family Medicine; Visit Provider Family Medicine | DX: E03.9 Hypothyroidism, unspecified (principal) | CPT/HCPCS: 84443 ==

== ENCOUNTER 2020-09-21 12:57 | Outpatient (REF) | payer BC, SELFPAY ==
[2020-09-21 16:06] LABS: Abs Immature Grans 0.03 10^3/uL (0.0-0.06); Absolute Basophil Count 0.05 10^3/uL (0.0-0.2); Absolute Eosinophil Count 0.14 10^3/uL (0.0-0.7); Absolute Lymphocyte Count 3.05 10^3/uL (1.2-3.4); Absolute Monocyte Count 0.54 10^3/uL (0.1-0.8); Absolute Neutrophil Count 2.73 10^3/uL (1.2-6.7); Basophils % 0.8; Eosinophils % 2.1; HCT 45.9 % (40.0-50.0); HGB 15.3 g/dL (13.5-17.5); Immature Grans % 0.5; Lymphocytes % 46.6; MCH 29.7 pg (27.0-33.0); MCHC 33.3 % (32.0-36.0); MPV 10.8 fL (8.0-11.0); Monocytes % 8.3; Neutrophils % 41.7; Nucleated RBC 0 %; Platelet Count 272 10^3/uL (130-400); RBC 5.16 10^6/uL (4.36-5.78); RDW 13.1 % (11.8-14.1); RDW-SD 42.8 fL; WBC 6.54 10^3/uL (4.4-10.8)
[2020-09-21 16:32] LABS: ALT 41 U/L (16-63); AST 22 U/L (15-37); Albumin 4.5 g/dL (3.4-5.0); Alkaline Phosphatase 129 U/L (46-116); Anion Gap 8.6 mmol/L (3-11); BUN 12 mg/dL (7-18); Bilirubin, Total 0.6 mg/dL (0.2-1.0); CO2 26.4 mmol/L (21.0-32.0); CREATININE 1.03 mg/dL (0.70-1.30); Calcium 9.6 mg/dL (8.5-10.1); Chloride 102 mmol/L (98-107); Glucose 103 mg/dL (74-106); Magnesium 1.7 mg/dL (1.8-2.4); Potassium 4.3 mmol/L (3.5-5.1); Sodium 137 mmol/L (136-145)
[2020-09-21 17:25] LABS: Creatine Kinase 142 U/L (39-308)
== END 2020-09-21 13:17 ==
LOC: NCHCN 12:57
PROVIDERS: PCP Family Medicine; Visit Provider Physician Assistant Medical
DX: M62.552 Muscle wasting and atrophy, not elsewhere classified, left thigh (principal)
CPT/HCPCS: 80053; 82550; 83735; 85025

== ENCOUNTER 2020-09-24 01:37 | Outpatient (CLI) | payer BC, SELFPAY ==
--- NOTE | 2020-09-24 | DI.RAD_ITS ---
EXAM: XR KNEE LT 4V AP,LAT,JANIA,PAT CLINICAL HISTORY: LT KNEE PAIN, M25.562. TECHNIQUE: 2D digital imaging was performed. COMPARISON: No exams were available for comparison FINDINGS: Five views of the left knee reveal no evidence of acute fracture nor obvious joint effusion. No join t space narrowing. However, there is no abnormal partially calcified mass on the medial aspect of th e knee adjacent to the medial tibial plateau which measures 1.5 centimetres cephalocaudal by 0.8 cent imetres wide. There is no destruction of the adjacent visualized tibial plateau. Subtle calcificati on is seen extending from this to the outer aspect of the meniscocapsular junction. There is no true chondrocalcinosis in all 3 joint spaces.. Bone density is normal. IMPRESSION: Partially calcified soft tissue mass off the medial aspect of the knee as described above. There is a possibility that this represents a partially calcified degenerative meniscal cyst in the medial gut ter. This would be associated with a chronic meniscal tear. Cannot, nevertheless, exclude the possi macy that this represents neoplasm. Therefore follow-up MRI is recommended. DATA REPOSITORY: RADIATION DOSE DELIVERED:
== END 2020-09-24 01:57 ==
PROVIDERS: PCP Family Medicine; Visit Provider Physician Assistant Medical
DX: M25.562 Pain in left knee (principal); M79.89 Other specified soft tissue disorders
CPT/HCPCS: 73564

== ENCOUNTER 2020-10-18 13:36 | Outpatient (CLI) | payer BC, SELFPAY ==
--- NOTE | 2020-10-18 13:15 | DI.RAD_ITS ---
EXAM: XR HIP LT COMPLETE AP PELVIS CLINICAL HISTORY: left hip pain. TECHNIQUE: 2D digital imaging was performed. COMPARISON: CR XR hip LT complete AP pelvis from 01/13/2019 FINDINGS: There is no evidence of fracture in the visualized lower half the pelvis nor evidence of hip fracture . There is no hip joint space narrowing as seen on the AP view, realizing that this is a supine nonw eightbearing view. On the lateral view there is a small bony excrescence at the femoral head-neck ju nction which may indicate an element of CAM-type femoroacetabular impingement. No lytic osseous lesi ons identified. Small benign bone island is noted in the lower femoral neck. IMPRESSION: DATA REPOSITORY: RADIATION DOSE DELIVERED:
== END 2020-10-18 13:37 | disposition home or self-care (01) ==
LOC: DIORS 13:36
PROVIDERS: PCP Family Medicine; Referring Provider Family Medicine; Visit Provider Physician Assistant
DX: M25.552 Pain in left hip (principal)
CPT/HCPCS: 73502

== ENCOUNTER 2020-10-26 03:06 | Outpatient (CLI) | payer BC, SELFPAY ==
--- NOTE | 2020-10-26 06:45 | DI.MRI_ITS ---
EXAM: MR LOWER JOINT LT WO CLINICAL HISTORY: LT KNEE PAIN, INTERNAL DERANGEMENT, M23.92. TECHNIQUE: Multiplanar multisequence MRI was performed. COMPARISON: CR XR KNEE LT 4V AP,LAT,JANIA,PAT from 09/24/2020 CR XR KNEE LT 4V AP,LAT,JANIA,PAT from 09/24/2020 FINDINGS: There is focal thickening and low to intermediate signal within the distal semi member no cysts tendo n. The distal fibers appear splayed. A few calcifications are visible but not as evident as on plai n film. The area appears circumscribed and measures 2.4 cm in length by 1.1 cm AP by 1.6 cm transver se.. There is a small amount of edema surrounding the tendons and superficial to the medial collater al ligament.. The findings could be related to previous injury with resulting calcification or chron ic tendinosis. There is no evidence of a meniscal cysts. There is a small popliteal cyst seen more superiorly. There is a minimal joint effusion. The the marrow signal is normal. The cruciate and c ollateral ligaments and extensor mechanism appear intact. There is no evidence of meniscal tear. No cartilage defects are seen. IMPRESSION: Area calcification adjacent to the medial femoral condyle on plain films corresponds to a low signal lesion within the distal semimembranosus tendon there is mild surrounding edema. The findings could be related to chronic tendinitis or previous injury. No invasive mass is seen. DATA REPOSITORY:
== END 2020-10-26 03:07 ==
LOC: DI 03:06
PROVIDERS: PCP Family Medicine; Visit Provider Student in an Organized Health Care Education/Training Program
DX: M23.92 Unspecified internal derangement of left knee (principal); M25.561 Pain in right knee
CPT/HCPCS: 73721

== ENCOUNTER 2020-11-01 02:11 | Outpatient (CLI) | payer BC, SELFPAY ==
--- NOTE | 2020-11-01 08:45 | DI.RAD_ITS ---
EXAM: RF JOINT INJECTION FLUORO GUID CLINICAL HISTORY: L HIP INJ UNDER FLUORO,LT HIP PAIN TECHNIQUE: 2D and realtime digital imaging was performed. CONTRAST MATERIAL: Water soluble contrast was administered. COMPARISON: No exams were available for comparison FINDINGS: Fluoroscopy was provided for Dr. Harvey during the performance of a left hip injection. Please re nick to the procedure report for complete details. Fluoro time: 2 seconds
[2020-11-01] MEDS: Bupivacaine 0.5% Pres-Free 10 ML VIAL IJ (14:30)
[2020-11-01] MEDS: Omnipaque 300 MG/ML 10 ML BTL IJ (14:31)
[2020-11-01] MEDS: methylPREDNISolone ACETATE 80 MG/ML VIAL IM (14:31)
--- NOTE | 2020-11-01 21:32 | W.PROCNOTE ---
Date of service: 11/01/20 Time of Service: 14:32 Procedure Note Procedure: Left Hip Injection with Fluoroscopic Guidance Surgeon/Proceduralist/Physician: Kavon Harvey Procedure Diagnosis: Left Hip Osteoarthritis Procedure Indications: Richard has had persistent pain of the LEFT hip and groin. Noninvasive measures have been tried. To serve as both diagnostic and therapeutic, an injection under fluoroscopy was recommended. I had discussed the risks of the procedure and the patient elected to proceed. Procedure Description: Richard was greeted in the flouroscopy room. The correct side was identified and the consent was reviewed with the patient and signed. The patient was then placed in the supine position on the fluoroscopy table. The LEFT hip was then prepped with Chloraprep. The anterolateral injection starting point was identiifed by bony landmarks and fluoroscopy. The skin and soft tissue in the tract of the injection was anesthetized with 1% Lidocaine. A spinal needle was then inserted deep into the hip joint at the level of the lateral femoral neck under fluoroscopic guidance. A small amount of Omnipaque solution was injected to confirm intraarticular placement. Once confirmed, the hip was injected with 6cc of 0.5% Bupivicaine and 80mg of Depo-Medrol. A bandaid was placed on the injection site. The patient tolerated the procedure well and noted improvement in pre-injection pain.
== END 2020-11-01 02:31 ==
PROVIDERS: PCP Family Medicine; Visit Provider Student in an Organized Health Care Education/Training Program
DX: M16.12 Unilateral primary osteoarthritis, left hip (principal); M25.552 Pain in left hip
CPT/HCPCS: 77002; J1040

== ENCOUNTER 2021-02-18 02:43 | Outpatient (CLI) | payer BC, SELFPAY ==
[2021-02-18 12:09] LABS: Source Nasal/Nares
[2021-02-18 19:08] LABS: COVID-19 PCR Negative (Negative)
== END 2021-02-18 02:44 | disposition home or self-care (01) ==
LOC: LBO 02:44
PROVIDERS: PCP Family Medicine; Visit Provider Family Medicine
DX: Z20.822 Contact with and (suspected) exposure to COVID-19 (principal); Z01.818 Encounter for other preprocedural examination
CPT/HCPCS: 87635

== ENCOUNTER → 2021-02-20 09:24 | Outpatient (CLI) | payer BC, SELFPAY ==
--- NOTE | 2021-02-20 14:19 | ST.MBS_ITS ---
Date of Service Date of service: 02/20/21 Time of Service: 14:19 Modified Barium Swallow Study Findings: Videofluoroscopic Swallowing Evaluation / Modified Barium Swallow Study (VFSE/MBSS) Speech Language Pathology Report HPI: Pt is a 55 year old male referred for VFSE/MBSS given ongoing pharyngeal globus since stroke in July 2019, with report of his airway closing more frequently when globus occurs; patient seen for CSE with this [employer] [facility] prior to imaging today, please see report dated 02/20/21 for further details. PMHx: Left hemiplegia since age of 9. IDDM. Hypothyroidism. Hypertension. Elevated Cholesterol. Knot in throat. Dyspnea. Restless leg syndrome. Ventral hernia. Vertigo. Depression. Hemiparesis affecting left side as late effect of cerebrovascular accident. Hypothyroidism. 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 Reports being seen by [facility] in [place] in October of 2019 when pharyngeal globus sensation began; delay in seeing [facility] given COVID and patient reports he primarily worked on his speech with [employer] [facility] at that time, not much done with his swallowing. Reports feeling something stuck there even outside of PO intake, motions to laryngeal area and then slightly below larynx; describes feeling like thick phlegm is stuck there, will try to swallow, then feels like throat is closing up on him (?laryngospasm); when he relaxes, he feels like the sensation/dyspnea subsides (reports he either tries not to think about it or chews gum and this helps). Denies any noticeable patterns with specific foods or drinks. Reports last time he saw GI was about 12 years ago [place] [facility] [place] Also reports occasional nasopharyngeal regurgitation, and pooling with liquids and/or with saliva swallows. Survey of common adaptive behaviors in EoE: feel like food is getting stuck when swallowing? YES, only if dry food feel afraid of not being able to swallow? YES, frequently every evening or while sleeping ever feel anxiety related to swallowing? YES, will get nervous once in a while take longer to eat than others? No need to cut food into small pieces? YES need to drink a lot with meals? YES need to chew excessively when eating? YES avoid certain foods like chicken, steak, rice, or crusty bread? YES, mostly hard breads, does cut meats into smaller pieces avoid social settings that involve food? No substitute solids with blended or pureed food? No EAT-10: 17 (elevated) Interpretation: scores of 3 or higher may indicate problems swallowing efficiently and/or safely RSI: 27 (elevated) Interpretation: Normative data suggests that a RSI greater than or equal to 13 is clinically significant and may be indicative of significant reflux disease. *Does report taking reflux medication; takes Protonix BID (in morning and at supper time before eating, has been taking this for past 10 years) - Reports he has tried all of the other reflux medications and reports he is allergic, has caused severe diarrhea, about 20 years ago, has tried several other types of medications with similar results OBJECTIVE: Videofluoroscopic Swallow Evaluation (VFSE/MBSS) was conducted in the lateral and [id number] projections by Speech-Language Pathologist, in collaboration with Radiologist, to evaluate oropharyngeal swallow function. Anatomic view under fluoroscopy: WFL Standard [place]. coin visible along posterior cervical spine, used for calibration purposes during analysis PO barium contrast trials: Oral barium water soluble contrast was administered as follows: IDDSI Level 0 Varibar thin liquid (40% w/v) IDDSI Level 2 Varibar nectar thick/mildly thick liquid (40% w/v) IDDSI Level 3 Varibar thin honey/liquidised/moderately-thick (40% w/v) IDDSI Level 4 Varibar pudding/pureed/extremely thick (40% w/v) IDDSI Level 7 Regular Solid: 1/2 jasen cracker coated in 3 mL Varibar pudding; 13 mm barium tablet PHYSIOLOGIC FINDINGS Oral Phase 1 Lip Closure: 0-No labial escape 2 Tongue Control: 0- Cohesive bolus between tongue to palatal seal 3 Bolus Preparation/Mastication: 0- Timely and efficient chewing/mashing 4 Bolus Transport/Lingual Motion: 0- Brisk tongue motion 5 Oral residue: 1- Trace residue lining oral structures - Location: floor of mouth, palate 6 Initiation of pharyngeal swallow: 1- Bolus head in valleculae Pharyngeal Phase 7 Velar Elevation: 2- Escape to nasopharynx 8 Laryngeal Elevation: 1- Partial superior movement of thyroid cartilage with partial approximation of arytenoids to epiglottic petiole 9 Anterior Hyoid Excursion: 0- Complete anterior movement 10 Epiglottic Movement: 1- Partial inversion 11 Laryngeal Vestibule Closure: 1- Incomplete; narrow column of air/contrast in laryngeal vestibule Penetration occurs during initial swallow onset from current bolus x1 12 Pharyngeal Stripping Wave: 1- Present; diminished 13 Pharyngeal Contraction: 0- Complete 14 PES/UES Openin- Partial distension and partial duration; partial obstruction of flow 15 Tongue Base Retraction: 1- Trace column of contrast between tongue base and posterior pharyngeal wall 16 Pharyngeal residue: 2- Collection of residue within or on pharyngeal structures Location: Valleculae, Pyriform sinuses Marti Pharyngeal Residue Severity Rating Scale (YPRS) (Lor et al, 2015) Vallecula Residue Severity III Mild 5-25% Epiglottic ligament visible Pyriform Sinus Residue Severity II Trace 1-5% Trace coating of the mucosa Esophageal Phase 17 Esophageal Clearance Upright Position: 2- Esophageal retention with retr ograde flow below pharyngoesophageal segment/(PES/UES) with more viscous textures *Noted esophageal hypertrophy (both anterior and posterior) at C5-C6 level in lateral view NOTE: This study was performed for interpretation only of the oropharyngeal and pharyngoesophageal domains of swallowing. It is not intended to diagnose any other radiologic abnormalities or substitute for a formal esophagram study. Overall 8-Point Penetration-Aspiration Scale (PAS) (Domingok, et al, 1996) 2 - Material enters the airway, remains above the vocal folds, and is ejected from the airway. Clinical Indicator(s) of Prandial/Postprandial Aspiration: N/A Trialed Compensatory Swallow Strategies & Outcome: Postures Chin tuck (volitional, during secondary swallow w solid bolus) - some increase in efficiency/reduction in amt of pharyngeal stasis *note, not trialed during initial bolus, but does not appear to effect airway safety Maneuvers 3-second Preparatory Set - no change Secondary saliva swallow x1- successful in clearing pharyngeal stasis Bolus Modifications Delivery/Alternating Consistencies - Wash with thin: successful in clearing pharyngeal stasis Reduced Volume - successful in reducing amt of pharyngeal stasis Reduced Rate of Intake - no change Increased Viscosity - mild increase in amt of pharyngeal stasis Dysphagia Outcome and Severity Scale (RITA) LEVEL 6 - Full PO: normal diet - Within functional limits/modified independence IMPRESSIONS: Swallow safety is preserved; swallow efficiency is mildly impaired. Mild oropharyngeal dysphagia with esophageal component, likely chronic; dysphagia presentation likely due to residual effects of stroke in 2019 and potential muscle tension dysphagia; dysphagia physiology is characterized by reduced swallow initiation, reduced velar elevation, reduced laryngeal elevation, reduced epiglottic movement/inversion, reduced laryngeal vestibule closure (brief penetration noted x1 during swallow; WFL), diminished pharyngeal stripping wave, reduced PES/UES opening, and reduced tongue base retraction, resulting in mild vallecular and trace pyriform sinus residue; of note is esophageal hypertrophy (both anterior and posterior) at C5-C6 level in lateral view and very slight retrograde flow below pharyngoesophageal segment/(PES/UES) in A-P view with more viscous textures. Patient is sensate to pharyngeal residue and is able to clear this volitionally, however reports continued globus after residue has been cleared per imaging, suggesting either referred sensation from esophageal retention and/or muscle tension component. Pt does note instance of tightened airway during initial swallow of masticated solid, subsided with secondary swallow per his report. Patient appears to be at low risk for potential aspiration PNA, pulmonary compromise and low for malnutrition and or dehydration. Diet modification is not indicated. Swallow prognosis is good given age, time since onset of CVA, cognitive status and pending patient/caregiver training in risk management as outlined. Patient appears to be a good candidate for behavioral swallow rehabilitation. PLAN: Diet recommendation: IDDSI Level 7-Regular/Easy to Chew Solids, 0-Thin Liquids Please see further details at www.[email or web address] Diet texture modification is per patient's preference; please adjust diet textures at patient's discretion & collaboration with care team. Risk Management: Behavioral reflux precautions, including upright position during + 90 mins after meals. Alternate solids/liquids as able Secondary swallow x1 to encourage clearance of pharyngeal stasis/residue Control risk factors for aspiration pneumonia via (a) thorough oral hygiene & (b) maintaining physical mobility as tolerated Specialist referrals: GI (had previously been seen through [facility] [place]), ENT for follow up after seeing [facility] (patient had seen Olayinka Simon previously) Ancillary tests: May Consider Barium Esophagram and/or EGD with GI; FEES with [facility] may also be of benefit if current treatment plan unable to resolve symptoms Therapy: Recommend subsequent outpatient session with [facility] [employer] to review results of today's exam and develop treatment plan as appropriate. Patient does have appointment with [facility] scheduled for 02/28/21. May consider the following: - Pharyngeal exercise: Effortful swallow, Shaker, CTAR, EMST, Tsering - Compensatory strategies: thin liquid wash, secondary swallow, *chin tuck with solid textures as tolerated; may trial head tilt or turn to R/L during clinical follow up to assess usefulness of strategy; may also trial super supraglottic swallow technique - Trial/review of VCD rescue breathing techniques as appropriate, behavioral reflux strategies - Assessment of laryngeal tension during subsequent visit Goal: TBD pending further patient interview Follow-up exam: N/A Thank you for allowing me to take part in this patient's care. Please feel free to contact me with any questions/concerns. Deyanira Reagan MA CCC-[employer] Speech Language Pathologist [phone] Coding CPT Codes MOTION FLUOROSCOPY/SWALLOW - [id number] ([id number])
[2021-02-20] MEDS: Barium Sulfate 700 MG TAB PO (15:04)
[2021-02-20] MEDS: Barium Sulfate 81% w/w for Oral Suspension 148 GM BTL 60 GM PO (15:05)
[2021-02-20] MEDS: Barium Sulfate 40% W/V 240 ML BTL 40 ML PO (15:06)
--- NOTE | 2021-02-20 15:06 | DI.RAD_ITS ---
Exam(s) RF MODIFIED SPEECH BA SWALLOW TECHNIQUE: Modified barium swallow was performed in conjunction with speech pathology. CONTRAST MATERIAL: Barium impregnated material was administered by the speech pathologist. COMPARISON: No exams were available for comparison FINDINGS: Note that this is not a dedicated esophagram, distal esophagus not evaluated. See speech pathology report. Study seen to reveal a consistent focal narrowing of these upper esopha juanito at C5-6 level. No obvious aspiration. Speech pathology report to follow. . . . IMPRESSION: No evidence of aspiration. Focal narrowing upper esophagus C5 level RADIATION DOSE DELIVERED: mariana West= mGy
[2021-02-20] MEDS: Barium Sulfate Oral Paste 40% W/V 230 ML TUBE 15 ML PO (15:08)
== END ==
PROVIDERS: PCP Family Medicine; Visit Provider Speech-Language Pathologist
DX: I69.391 Dysphagia following cerebral infarction (principal); R13.12 Dysphagia, oropharyngeal phase
CPT/HCPCS: 92611; 74221; J3490

== ENCOUNTER 2021-03-22 13:58 | Outpatient (REF) | payer BC, SELFPAY ==
[2021-03-22 19:19] LABS: HCT 41.5 % (40.0-50.0); HGB 14.1 g/dL (13.5-17.5); MCH 30.3 pg (27.0-33.0); MCV 89.2 fL (80-95); MPV 10.9 fL (8.0-11.0); Platelet Count 219 10^3/uL (130-400); RBC 4.65 10^6/uL (4.36-5.78); RDW 13.2 % (11.8-14.1); RDW-SD 43.1 fL; WBC 9.19 10^3/uL (4.4-10.8)
[2021-03-22 19:33] LABS: ALT 26 U/L (16-63); AST 17 U/L (15-37); Albumin 4.1 g/dL (3.4-5.0); Alkaline Phosphatase 126 U/L (46-116); Anion Gap 4.9 mmol/L (3-11); BUN 16 mg/dL (7-18); Bilirubin, Total 1.1 mg/dL (0.2-1.0); CO2 29.1 mmol/L (21.0-32.0); Calcium 9.2 mg/dL (8.5-10.1); Chloride 98 mmol/L (98-107); FREE T4 1.37 ng/dL (0.76-1.46); Glucose 111 mg/dL (74-106); Magnesium 1.8 mg/dL (1.8-2.4); Sodium 132 mmol/L (136-145); Total Protein 7.4 g/dL (6.4-8.2)
[2021-03-25 05:02] LABS: Vitamin D 25 Total 63.9 ng/mL (30-100)
[2021-03-25 11:06] LABS: Iron 45 ug/dL (65-175)
[2021-03-25 11:20] LABS: Ferritin 115 ng/mL (26-388)
[2021-03-25 11:41] LABS: Lyme Ab w Rflx to Lyme Confirm Negative (Negative)
[2021-03-26 16:12] LABS: Anaplasma phagocytophilum Negative (Negative); B. miyamotoi PCR Negative (Negative); Babesia divergens/MO-1 Negative (Negative); Babesia duncani Negative (Negative); Babesia microti Negative (Negative); Ehrlichia chaffeensis Negative (Negative); Ehrlichia ewingii/canis Negative (Negative); Ehrlichia muris eauclairensis Negative (Negative)
== END 2021-03-22 13:59 | disposition home or self-care (01) ==
LOC: NCHCN 13:58
PROVIDERS: PCP Family Medicine; Visit Provider Family Medicine
DX: T14.8XXA Other injury of unspecified body region, initial encounter (principal); W57.XXXA Bitten or stung by nonvenomous insect and other nonvenomous arthropods, initial encounter; Z94.83 Pancreas transplant status
CPT/HCPCS: 80053; 82306; 85027; 87798; 82728; 83540; 83735; 84439; 86618

== ENCOUNTER 2021-04-11 02:23 | Outpatient (CLI) | payer BC, SELFPAY ==
--- NOTE | 2021-04-11 09:15 | DI.NM_ITS ---
APPROVED REPORT Exam: Pharmacologic Patient Location: Out-Patient Room/Bed: Stress Nurse: Briseyda Mosqueda RN Ordering Provider:MEAGHAN DENT, Contact Number: [phone] BMI: 29.83 Baseline Rhythm: Sinus Rhythm Indications: Chest pressure, dyspnea Medical History Medical History: Hypertension, diabetes type I, hypothyroidism, depression, CVA, pancreas transplant, tardive dyskinesia Cardiac Medications: Verapamil, albuterol sulfate, alprazolam, atorvastatin, clopidogrel, gabapentin, levothyroxine, mycophenolate mofetil, nitro, pantoprazole, sildenafil Allergies: metoclopramide, oxycodone, simavastatin, esomeprazole mag, dimotrope, ornadedimotrope Cardiac Risk Factors: Hypertension, diabetes type I, asthma, family hx Previous Cardiac Procedures: None Pretest Chest Pain Characteristics: None Exercise History: Sedentary Physical Disabilities: L leg gait impairment Lung Sounds: Clear to auscultation Heart Sounds: Regular Stress Test Details Test: Exercise stress converted to pharmacologic stress due to failure to obtain a diagnostic stress test. Reason for pharmacologic stress test: changed from exercise stress test due to inability to reach t arget heart rate. Nuclear Acquisition: Rest Tc-99m/Stress Tc-99m 1 day Rest Isotope: Tc-99m Sestamibi. Dose: 11.5 Date: 04/11/2021 Injection Time: 0930 Stress Isotope: Tc-99m Sestamibi. Dose: 36.6 Date: 04/11/2021 Injection Time: 1125 HR Resting HR Supine: 67 bpm Max Heart Rate (APMHR): 167.892362 bpm Resting HR Standin bpm Target HR (85% APMHR): 141.179181 bpm Max HR Achieved: 113 bpm % of APMHR: 67.66 Recovery HR: 86 bpm HR response to stress: Normal HR response to stress BP Resting BP Supine: 140/82 mmHg Resting BP Standin/80 mmHg Max BP: 172/76 mmHg Recovery BP: 148/78 mmHg BP response to stress: Normal blood pressure response to stress. ECG Resting ECG: Sinus Rhythm Ectopy: None Stress ECG: Sinus Tachycardia ST Change: No significant ST segment changes noted Arrhythmia: Occasional PVC Recovery ECG: Sinus Rhythm Recovery ST Change: No significant ST segment changes noted Recovery Arrhythmia: Rare PVC Clinical Reason for Termination: Fatigue Stress Symptoms: General Fatigue, Dyspnea, Chest Tightness Highest Stage Reached: Stage 3: 3.4 mph at 14% grade. Exercise capacity: 7.69 METs Rate Pressure Product: 35745 Stress ECG Conclusion 1. This test was converted to a pharmacological stress test as the patient was unable to obtain heart rate with exercise. 2. The ECG portion of this exam is nondiagnostic. Stress Test Summary STAGE Time (mins) Speed (mph) Grade (%) HR BP SYMPTOMS METS Supine 67 140/82 Standing 78 136/80 SpO2 97% 1 3 1.7 10 98 146/80 SpO2 95%- 3/10 chest tightness, mild SOB 4.6 2 6 2.5 12 109 160/78 SpO2 95% 7 1 min post Lexiscan injection 110 SpO2 98%, symptoms improving 3 min post Lexiscan injection 103 172/76 SpO2 98%, symptoms improving 6 min post Lexiscan injection 86 148/78 SpO2 98%, symptoms resolved Pt reported feeling 3/10 chest tightness and mild SOB when ectopy occurred during second stage. Pt st opped exercise approx 6 min 30 sec into test. After 2.5 min rest, resumed walking for lexiscan inject ion. Pt tolerated injection well. Symptoms resolved during recovery period. MPI Conclusion The patient's ejection fraction was 60% with stress. There were no wall motion abnormalities. There is no evidence of ischemia on the imaging portion exam. This represents a normal SPECT stress test. Radiologist Interpretation Radiologist Interpretation by: Richard Sanders MD Interpretation Date/Time: 04/11/2021 16:23:41
[2021-04-11] MEDS: Regadenoson 0.4 MG/5 ML SYR IVP (11:33)
== END 2021-04-11 02:43 ==
PROVIDERS: PCP Family Medicine; Visit Provider Family Medicine
DX: R07.89 Other chest pain (principal); R06.00 Dyspnea, unspecified; I10 Essential (primary) hypertension; E10.9 Type 1 diabetes mellitus without complications; J45.909 Unspecified asthma, uncomplicated; Z82.49 Family history of ischemic heart disease and other diseases of the circulatory system
CPT/HCPCS: 78452; 93017; J2785

== ENCOUNTER 2021-07-10 02:31 | Outpatient (CLI) | payer BC, SELFPAY ==
[2021-07-10 10:23] LABS: Ferritin 50 ng/mL (26-388)
== END 2021-07-10 02:32 | disposition home or self-care (01) ==
LOC: LBO 02:32
PROVIDERS: PCP Family Medicine; Visit Provider Nurse Practitioner
DX: M25.512 Pain in left shoulder (principal)
CPT/HCPCS: 36415; 82728

== ENCOUNTER 2021-08-07 00:38 | Outpatient (CLI) | payer BC, SELFPAY ==
--- NOTE | 2021-08-07 15:50 | DI.US_ITS ---
APPROVED REPORT EXAM: Comprehensive 2D, Doppler, and color-flow Echocardiogram Patient Location: In-Patient Netting Inspector: Dee Dee Alvarez RDCS (AE) Indications: QUIÑONES Other Information Study Quality: Adequate Conclusion Normal left ventricular wall thickness and chamber size. Estimated ejection fraction is 60 to 65%. Wall motion is normal Normal right ventricular size and systolic function Both atria are normal in size There is no structural or hemodynamically significant valvular disease Wall motion Left Ventricle The left ventricle is normal size. The left ventricular systolic function is normal. The left ventric ular ejection fraction is within the normal range. There is normal left ventricular wall thickness. T here is normal LV segmental wall motion. There is no ventricular septal defect visualized. LVEF is 62 %. Right Ventricle The right ventricle is normal size. The right ventricular systolic function is normal. Atria The left atrium size is normal. The right atrium size is normal. The interatrial septum is intact wit h no evidence for an atrial septal defect. Aortic Valve The aortic valve is normal in structure. Aortic valve is trileaflet. There is no aortic valvular sten osis. No aortic regurgitation is present. Mitral Valve The mitral valve is normal in structure. No evidence of mitral valve stenosis. Trace mitral regurgita tion. Tricuspid Valve The tricuspid valve is normal in structure. There is no tricuspid valve stenosis. Trace tricuspid reg urgitation. Unable to assess PA pressure. Pulmonic Valve The pulmonary valve is normal in structure. There is no pulmonic valvular stenosis. Trace pulmonic re gurgitation. Great Vessels The aortic root is normal in size. The ascending aorta is normal in size. Aortic arch is normal in ca liber. IVC is normal in size and collapses >50% with inspiration. Pericardium There is no pericardial effusion. 2D Dimensions IVSD d PLAX 0.82 cm M: 0.6-1.2 LV Vol A2C d MOD 131.3 mL LVPW d PLAX 0.85 cm M: 0.6 - 1.2 LV Vol A4C d MOD 105.3 mL LVID d PLAX 5.27 cm M: 4.2 - 5.8 LA vol/ BSA A2C s A-L 23.7 mL/m2 LVDs 3.35 cm M: 2.5 - 4.0 LA vol/ BSA A4C s A-L 14.2 mL/m2 Ao Root d 3.35 cm M: 3.1 - 3.7 LA Vol/ BSA Biplane s A-L 18.4 mL/m2 RA Area A4C 10.90 cm2 LA Area A4C s MOD 13.54 cm2 RA Vol/ BSA A4C s A-L 10.9 mL/m2 LA Area A2C s MOD 17.52 cm2 Ao Asc Diam d 3.01 cm M: 2.6 - 3.4 LV EF A4C MOD 62.4 % LV EF Teichholz 64.9 % LV EF A2C MOD 62.5 % LVEF (Nelson's) 61.73 % M: 52 - 72 LV EF Biplane MOD 61.7 % LV Volume 85.69 mL M: 62 - 150 SV 72.70 mL LV Volume Index 39.12 mL/m2 M: 34 - 74 SV Index 33.09 mL/m2 LV Vol Biplane MOD 117.8 mL FS 35.80 % M-Mode TAPSE 2.99 cm (M/F) >1.7 LV Diastology E/A Ratio 1.0 MV E Vmax 0.62 (0.4-1.3 m/s) MV A Vmax 0.60 (0.4-1.3 m/s) MV E/A Ratio 0.95 Aortic Valve LVOT Area 3.91 cm2 AoV Area Vmax 3.90 cm2 LVOT Vmax 1.23 m/s AoV Area/ BSA (Vmax) 1.77 cm2/m2 LVOT Mean Zaid. 0.79 m/s SAUL Mean Zaid. 3.67 cm2 LVOT Peak Grad 6.0 mmHg SAUL Mean Zaid. Index 1.67 cm2/m2 LVOT Mean Grad 3.0 mmHg LVOT VTI 0.227 m LVOT Diam s 2.20 cm AoV Vmax 1.23 m/s Velocity Ratio 1.00 AoV Mean Azid. 0.85 m/s AoV Peak Grad 6.0 mmHg LVOT SV 88.55 mL AoV Mean Grad 3.2 mmHg AoV VTI 0.285 m AoV Area VTI 3.11 cm2 AoV Area/ BSA (VTI) 1.42 cm/m2 Mitral Valve MV DT 282 (160-240 msec) MV PHT 82 msec MV Area PHT 2.69 cm2 MV VTI 0.268 m MV Area VTI 3.31 (4.0-6.0 cm2) Pulmonary Valve PV Vmax 1.03 (0.5-1.5 m/s) RVOT Peak Gr. 1.51 mmHg PV Peak Grad 4.2 mmHg RVOT Mean Gr. 0.70 mmHg PV Mean Grad 2.2 mmHg RVOT VTI 0.139 m PV VTI 0.214 m RVOT Vmax 0.61 m/s
== END 2021-08-07 00:58 ==
PROVIDERS: PCP Family Medicine; Visit Provider Family Medicine
DX: R06.09 Other forms of dyspnea (principal)
CPT/HCPCS: 93306

== ENCOUNTER 2021-10-31 16:20 | Outpatient (REF) | payer BC, SELFPAY ==
[2021-11-02 11:33] LABS: COVID-19 RT-PCR UVMMC Result Negative (Negative)
== END 2021-10-31 16:21 | disposition home or self-care (01) ==
LOC: LBN 16:20
PROVIDERS: PCP Family Medicine; Visit Provider Physician Assistant Medical
DX: J34.89 Other specified disorders of nose and nasal sinuses (principal); Z20.822 Contact with and (suspected) exposure to COVID-19; J02.9 Acute pharyngitis, unspecified
CPT/HCPCS: U0003; 87070

== ENCOUNTER 2022-03-05 02:05 | Emergency (ER) | payer BC, SELFPAY ==
[2022-03-05 02:19] VITALS: BP 166/93; PULSE 69; RESP 16; TEMP 36.2; O2SAT 98
--- NOTE | 2022-03-05 02:36 | ED.GENADUL_ITS ---
Discharge Plan Disposition Patient Disposition: HOME Condition: Improving Discharge Details Clinical Impression: Acute right otitis media Primary Care Provider: Anna Mullen V ED Provider: Shaji Campbell Home Meds and New Rx's Prescriptions: New amoxicillin-pot clavulanate 875-125 mg tablet 1 tab PO BID 10 Days Qty: 20 0RF Continued sildenafil [Viagra] 100 mg tablet 100 mg PO PRN PRN meclizine 25 mg tablet 25 mg PO TID PRN nitroglycerin [Nitrostat] 0.4 mg tablet, sublingual 0.4 mg SL Q5M PRN verapamil 120 mg tablet extended release 120 mg PO DAILY lidocaine [Lidoderm] 5 % adhesive patch,medicated 1 patch TP DAILY PRN valacyclovir 1 gram tablet 2,000 mg PO PRN PRN polyethylene glycol 3350 [Miralax] 17 gram/dose powder 17 gm PO PRN PRN omega-3 fatty acids [Fish Oil Concentrate] 1,000 mg capsule 1,000 mg PO DAILY hydroxyzine HCl 50 mg/mL solution 25 mg IM BID alprazolam 0.5 mg tablet 0.5 mg PO ONCE PRN (Reason: claustrophobia) Qty: 2 0RF Rx Instructions: Take within 3o minutes of MRI. Repeat x 1 if necessary. Dulera 200-5 mcg/actuation HFA aerosol inhaler 2 puff inhalation BID Qty: 13 8RF Rx Instructions: 2 puff bid and as needed for a maximum of 12 puffs in 24 hours (SMART therapy) multivitamin [Daily Multi-Vitamin] 1 EACH tablet 1 ea PO DAILY levothyroxine 175 MCG tablet 137 mcg PO DAILY trazodone 50 MG tablet 50 mg PO HS magnesium gluconate 27 MG tablet 27 mg PO DAILY tacrolimus [Prograf] 1 MG capsule 2 mg PO QAM venlafaxine 150 MG tablet extended release 24hr 225 mg PO DAILY mycophenolate mofetil [CellCept] 250 mg capsule 250 mg PO 2 CAPS BID carvedilol 6.25 mg tablet 6.25 mg PO BID Rx Instructions: must administer with a meal/food cyclobenzaprine 5 mg tablet 5 mg PO TID PRN albuterol sulfate [ProAir HFA] 90 mcg/actuation HFA aerosol inhaler 2 puff inhalation 6XD pantoprazole 40 MG tablet,delayed release (DR/EC) 40 mg PO BID gabapentin 300 mg capsule 300 mg PO DIRECTED Rx Instructions: Per pt. takes 300 mg am, 600 mg suppertime, 600 mg HS 05/15/20 ondansetron 4 MG tablet,disintegrating 4 mg PO Q6H PRN PRN (Reason: Nausea / Vomiting) Qty: 20 0RF tacrolimus [Prograf] 1 mg Capsule 1 mg PO HS acetaminophen [Tylenol Extra Strength] 500 mg Tablet 1,000 mg PO Q6H PRN docusate sodium [Colace] 100 MG capsule 100 mg PO TID PRN PRN0RF clopidogrel [Plavix] 75 mg Tablet 75 mg PO HS prochlorperazine maleate 10 mg tablet 10 mg PO Q6H PRN (Reason: Nausea/headache) Qty: 10 0RF atorvastatin [Lipitor] 20 mg tablet 10 mg PO HS ropinirole 0.25 mg tablet 2 tab PO QHS Label Comments: TAKE 2 TABLETS ORALLY IN EVENING 1 HOUR BEFORE BEDTIME. MAY INCREASE BY 1 TABLET A WEEK UP TO 4 TABLETS UNTIL RESTLESS LEGS AND BODY CALM DO hydroxyzine HCl 25 mg Tablet 25 mg PO BID losartan 100 mg tablet 1 tab PO DAILY Discharge Instructions Instructions: Ear Infection (ED) Additional Instructions: Benadryl 25 mg at bedtime to help with decongestion. Take antibiotics as prescribed. Return for worsening discomfort, new symptoms, or any other acute concerns. Home to rest Medical Decision Making 56-year-old male presents with right ear pain. He does have a distended and fluid-filled right tympanic membrane. His exam is otherwise reassuring. Patient does have a history of pancreatic transplant and at risk for quickly developing infections. Discussed with him I would place him on a course of Augmentin. He will use Benadryl at bedtime. He is stable for a trial of outpatient HPI General Mode of arrival: ambulatory . Date/Time Provider Initiated Documentation: 03/05/22 02:20 . Limitations to Documentation: no limitations . Information obtained by: patient . History of Present Illness 56 year old M presents to the emergency department with the chief complaint of Right ear, described as moderate, Quality is described as dull and constant, and is localized to the head. Patient started experiencing this day(s) and it has been constant. No relieving factors improve symptom(s), No exacerbating factors reported . Patient notes denies fever/chills. Patient did receive the following treatments prior to arrival, none Related Data Home Medications Medication Instructions Recorded Confirmed levothyroxine 175 mcg tablet 137 mcg PO DAILY 08/21/14 03/05/22 multivitamin (Daily Multi-Vitamin 1 ea PO DAILY 08/21/14 03/05/22 tablet) magnesium gluconate 27 mg 27 mg PO DAILY 10/12/14 03/05/22 magnesium (500 mg) tablet trazodone 50 mg tablet 50 mg PO HS 10/12/14 05/08/21 pantoprazole 40 mg tablet,delayed 40 mg PO BID 05/15/16 03/05/22 release tacrolimus 1 mg capsule, 2 mg PO QAM 07/22/17 03/05/22 immediate-release (Prograf) venlafaxine 150 mg tablet,extended 225 mg PO DAILY 07/22/17 03/05/22 release 24 hr docusate sodium 100 mg capsule 100 mg PO TID PRN PRN 07/31/17 03/05/22 (Colace) ondansetron 4 mg disintegrating 4 mg PO Q6H PRN PRN 10/12/17 03/05/22 tablet Vomiting ##20 lidocaine 5 % topical patch 1 patch topical DAILY PRN 10/18/18 03/05/22 (Lidoderm) omega-3 fatty acids 1,000 mg 1,000 mg PO DAILY 10/18/18 03/05/22 capsule (Fish Oil Concentrate) polyethylene glycol 3350 17 17 gm PO PRN PRN 10/18/18 03/05/22 gram/dose oral powder (Miralax) valacyclovir 1 gram tablet 2,000 mg PO PRN PRN 10/18/18 03/05/22 meclizine 25 mg tablet 25 mg PO TID PRN 03/29/19 03/05/22 mycophenolate mofetil 250 mg 250 mg PO 2 CAPS BID 03/29/19 03/05/22 capsule (CellCept) nitroglycerin 0.4 mg sublingual 0.4 mg sublingual Q5M PRN 03/29/19 03/05/22 tablet (Nitrostat) sildenafil 100 mg tablet (Viagra) 100 mg PO PRN PRN 03/29/19 03/05/22 tacrolimus 1 mg capsule, 1 mg PO HS 04/14/19 03/05/22 immediate-release (Prograf) clopidogrel 75 mg tablet (Plavix) 75 mg PO HS 08/08/19 03/05/22 prochlorperazine maleate 10 mg 10 mg PO Q6H PRN Nausea/headache 08/08/19 05/08/21 tablet #10 tabs atorvastatin 20 mg tablet (Lipitor) 10 mg PO HS 01/30/20 03/05/22 verapamil 120 mg tablet,extended 120 mg PO DAILY 01/30/20 03/05/22 release acetaminophen 500 mg tablet 1,000 mg PO Q6H PRN 02/08/20 03/05/22 (Tylenol Extra Strength) gabapentin 300 mg capsule 300 mg PO DIRECTED 05/15/20 03/05/22 hydroxyzine HCl 50 mg/mL 25 mg IM BID 10/18/20 05/08/21 intramuscular solution alprazolam 0.5 mg tablet 0.5 mg PO ONCE PRN claustrophobia 10/19/20 03/05/22 #2 tabs albuterol sulfate 90 mcg/actuation 2 puff inhalation 6XD 04/25/21 03/05/22 aerosol inhaler (ProAir HFA) carvedilol 6.25 mg tablet 6.25 mg PO BID 04/25/21 03/05/22 cyclobenzaprine 5 mg tablet 5 mg PO TID PRN 04/25/21 03/05/22 mometasone-formoterol HFA 200 2 puff inhalation BID #13 grams 05/08/21 03/05/22 mcg-5 mcg/actuation aerosol inhaler (Dulera) amoxicillin 875 mg-potassium 1 tab PO BID 10 days #20 tabs 03/05/22 clavulanate 125 mg tablet hydroxyzine HCl 25 mg tablet 25 mg PO BID 03/05/22 03/05/22 losartan 100 mg tablet 1 tab PO DAILY 03/05/22 03/05/22 ropinirole 0.25 mg tablet 2 tab PO QHS 03/05/22 03/05/22 Previous Rx's Medication Instructions Recorded docusate sodium 100 mg capsule 100 mg PO TID PRN PRN 07/31/17 (Colace) ondansetron 4 mg disintegrating 4 mg PO Q6H PRN PRN Nausea / 10/12/17 tablet Vomiting ##20 prochlorperazine maleate 10 mg 10 mg PO Q6H PRN Nausea/headache 08/08/19 tablet #10 tabs alprazolam 0.5 mg tablet 0.5 mg PO ONCE PRN claustrophobia 10/19/20 #2 tabs mometasone-formoterol HFA 200 2 puff inhalation BID #13 grams 05/08/21 mcg-5 mcg/actuation aerosol inhaler (Dulera) amoxicillin 875 mg-potassium 1 tab PO BID 10 days #20 tabs 03/05/22 clavulanate 125 mg tablet Allergies Allergy/AdvReac Type Severity Reaction Status Date / Time metoclopramide HCl Allergy Intermediate TARDIIVE Unverified 03/05/22 02:23 [From Reglan] DYSKINESIA oxycodone HCl [From Percocet] Allergy Intermediate Unverified 03/05/22 02:23 simvastatin [From Zocor] Allergy Intermediate MYOCLONUS Unverified 03/05/22 02:23 esomeprazole magnesium AdvReac Diarrhea Unverified 03/05/22 02:23 [From Nexium] DIMOTROPE Allergy Mild Uncoded 03/05/22 02:23 ORNADE DIMOTROPE Allergy Unknown Uncoded 03/05/22 02:23 General Stated Complaint: EarProblem ROBIN: 4 Review of Systems Narrative: No other complaint. No fall or injury. No sore throat. No fever. 6 systems reviewed and otherwise negative PFSH All Active Problems (Updated 03/05/22 @ 02:38 by Shaji Campbell MD) Acute right otitis media (Acute) Vocal cord dysfunction (Acute) Asthma (Chronic) Oropharyngeal dysphagia (Acute) Femoroacetabular impingement of left hip (Acute) Tardive dyskinesia (Acute 10/12/14) Abnormal movements (Acute) Lumbar back pain with radiculopathy affecting left lower extremity (Acute) Back pain with history of spinal surgery (Acute) Weakness of left lower extremity (Acute) Subcutaneous mass of left lower extremity (Acute) Acute febrile illness (Acute) Status post pancreas transplantation (Acute) Hypertension (Acute) History of diabetes mellitus, type I (Acute) Tendinitis of left hip flexor (Acute) Strain of flexor muscle of left hip (Acute) History of colonoscopy (Chronic) 2015-pitting of colonic mucosa Hyponatremia (Acute) Near syncope (Acute) Atopic dermatitis (Acute) Medical History Carpal tunnel syndrome of right wrist (10/12/14) Depression Dyspnea on exertion Gastroparesis Hernia History of diabetes mellitus HTN (hypertension) Hypothyroidism (acquired) Left hemiparesis Lumbar back pain Migraine Pancreas transplanted Right shoulder pain Scoliosis 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) Vertigo Surgical History History of appendectomy History of arthroscopic knee surgery Left History of carpal tunnel release Right History of esophagogastroduodenoscopy (EGD) History of pancreas transplant History of shoulder surgery R shoulder Trigger finger, right middle finger S/P release on 02/08/2020 Family History Father COPD (chronic obstructive pulmonary disease) Mother Hypertension Status post heart valve replacement AGE 7 Migraine Parkinsons Brother Enlarged prostate no cancer Other Heart disease Social History Smoking/Tobacco Use Status: Never Smoking risk assessment performed?: Yes Alcohol Intake: never Drug use: Never Substance use type: does not use Household members: family Housing: house Pets and animals: Yes Pets and animals: cat(s) and dog(s) Current gender identity: male What is your relationship status?: Panel score (0-1 are the most socially isolated patients): 1 Seatbelt use: always Do you feel safe at home: Yes Do you feel safe in your relationship?: Yes Exam Narrative Exam Narrative: GEN: awake, alert, oriented 3. Pleasant, well groomed, interactive. HEAD: Normocephalic, atraumatic ENT: Mucous membranes moist, the right tympanic membrane is distended with loss of light reflex, left tympanic membranes pearlescent slightly fluid-filled, External ear exam unremarkable EYES: PERRL, EOMI NECK: Full ROM, no RANDOLPH, no menigismus CHEST/RESP: Nontender, clear to auscultation bilateral, no wheeze/rhonchi/rales CARDIOVASCULAR: RRR, no murmur, rub ketan. 2+ Rad pulse bilateral EXT: Full ROM, no edema, no rash Neuro: Grossly normal neurologic exam, conversant, interactive. Psych: Speech fluent, thoughts congruent, affect normal Course Vital Signs Vital signs: Vital Signs Temperature 36.2 C L 03/05/22 02:19 Pulse 69 03/05/22 02:19 Respiratory Rate 16 03/05/22 02:19 Blood Pressure 166/93 H 03/05/22 02:19 Pulse Oximetry 98 03/05/22 02:19 Temperature 36.2 C L 03/05/22 02:19 Temperature Source Skin 03/05/22 02:19 Pulse 69 03/05/22 02:19 Respiratory Rate 16 03/05/22 02:19 Respiratory Effort Non-Labored 03/05/22 02:29 Blood Pressure 166/93 H 03/05/22 02:19 Blood Pressure Position Sitting 03/05/22 02:19 Pulse Oximetry 98 03/05/22 02:19 Oxygen Delivery Method Room Air 03/05/22 02:19 Oxygen Flow Rate 0 03/05/22 02:19 Pain Level 9 03/05/22 02:29
[2022-03-05] MEDS: Amox. 875/Clav. 125, 2 TABS/BTL 1 TAB PO (02:45)
[2022-03-05 02:49] VITALS: BP 166/93; PULSE 69; RESP 16; TEMP 36.2; O2SAT 98
== END 2022-03-05 02:50 | disposition home or self-care (01) ==
PROVIDERS: Emergency Provider Emergency Medicine; PCP Family Medicine
DX: H66.91 Otitis media, unspecified, right ear (principal)
CPT/HCPCS: 99283

== ENCOUNTER 2022-03-11 22:41 | Emergency (ER) | payer BC, SELFPAY ==
[2022-03-11 22:48] VITALS: BP 162/81; PULSE 76; RESP 16; TEMP 36.3; O2SAT 96
--- NOTE | 2022-03-11 23:11 | ED.GENADUL_ITS ---
Discharge Plan Disposition Patient Disposition: HOME Condition: Improving Discharge Details Clinical Impression: Acute otitis externa of right ear Primary Care Provider: Anna Mullen V ED Provider: Shaji Campbell Home Meds and New Rx's Prescriptions: Continued sildenafil [Viagra] 100 mg tablet 100 mg PO PRN PRN meclizine 25 mg tablet 25 mg PO TID PRN nitroglycerin [Nitrostat] 0.4 mg tablet, sublingual 0.4 mg SL Q5M PRN verapamil 120 mg tablet extended release 120 mg PO DAILY lidocaine [Lidoderm] 5 % adhesive patch,medicated 1 patch TP DAILY PRN valacyclovir 1 gram tablet 2,000 mg PO PRN PRN polyethylene glycol 3350 [Miralax] 17 gram/dose powder 17 gm PO PRN PRN omega-3 fatty acids [Fish Oil Concentrate] 1,000 mg capsule 1,000 mg PO DAILY hydroxyzine HCl 50 mg/mL solution 25 mg IM BID alprazolam 0.5 mg tablet 0.5 mg PO ONCE PRN (Reason: claustrophobia) Qty: 2 0RF Rx Instructions: Take within 3o minutes of MRI. Repeat x 1 if necessary. Dulera 200-5 mcg/actuation HFA aerosol inhaler 2 puff inhalation BID Qty: 13 8RF Rx Instructions: 2 puff bid and as needed for a maximum of 12 puffs in 24 hours (SMART therapy) multivitamin [Daily Multi-Vitamin] 1 EACH tablet 1 ea PO DAILY levothyroxine 175 MCG tablet 137 mcg PO DAILY trazodone 50 MG tablet 50 mg PO HS magnesium gluconate 27 MG tablet 27 mg PO DAILY tacrolimus [Prograf] 1 MG capsule 2 mg PO QAM venlafaxine 150 MG tablet extended release 24hr 225 mg PO DAILY mycophenolate mofetil [CellCept] 250 mg capsule 250 mg PO 2 CAPS BID carvedilol 6.25 mg tablet 6.25 mg PO BID Rx Instructions: must administer with a meal/food cyclobenzaprine 5 mg tablet 5 mg PO TID PRN albuterol sulfate [ProAir HFA] 90 mcg/actuation HFA aerosol inhaler 2 puff inhalation 6XD pantoprazole 40 MG tablet,delayed release (DR/EC) 40 mg PO BID gabapentin 300 mg capsule 300 mg PO DIRECTED Rx Instructions: Per pt. takes 300 mg am, 600 mg suppertime, 600 mg HS 9/15/20 ondansetron 4 MG tablet,disintegrating 4 mg PO Q6H PRN PRN (Reason: Nausea / Vomiting) Qty: 20 0RF tacrolimus [Prograf] 1 mg Capsule 1 mg PO HS acetaminophen [Tylenol Extra Strength] 500 mg Tablet 1,000 mg PO Q6H PRN docusate sodium [Colace] 100 MG capsule 100 mg PO TID PRN PRN0RF clopidogrel [Plavix] 75 mg Tablet 75 mg PO HS prochlorperazine maleate 10 mg tablet 10 mg PO Q6H PRN (Reason: Nausea/headache) Qty: 10 0RF atorvastatin [Lipitor] 20 mg tablet 10 mg PO HS ropinirole 0.25 mg tablet 2 tab PO QHS Label Comments: TAKE 2 TABLETS ORALLY IN EVENING 1 HOUR BEFORE BEDTIME. MAY INCREASE BY 1 TABLET A WEEK UP TO 4 TABLETS UNTIL RESTLESS LEGS AND BODY CALM DO hydroxyzine HCl 25 mg Tablet 25 mg PO BID losartan 100 mg tablet 1 tab PO DAILY amoxicillin-pot clavulanate 875-125 mg tablet 1 tab PO BID 10 Days Qty: 20 0RF Discharge Instructions Instructions: Otitis Externa (ED) Additional Instructions: Take Cipro HC 3-44 drops to the right ear twice daily for 7 days. We will call you with your COVID 19 test results. [id number] pain medicine if needed. Apply warm compress to area for comfo rt. Return to ER for any acute concern. Medical Decision Making Pleasant 56-year-old male seen by myself on March 05 for acute right otitis media for which he is nearly finished his course of Augmentin. He states his right ear pain improved and then over the course the last 24 hours seems to have returned and now is worse with movement of the earlobe. He also was at a libertarian and exposed to a person with COVID-19. He endorses sore throat, body ache and some weakness. Vital signs are stable. He is has evidence of right external otitis for which I will place him on a course of Ciprodex. We will also obtain a COVID-19 swab given the patient's exposure. He is stable for outpatient management. HPI General Mode of arrival: ambulatory . Date/Time Provider Initiated Documentation: 03/11/22 22:44 . Limitations to Documentation: no limitations . Information obtained by: patient . History of Present Illness 56 year old M presents to the emergency department with the chief complaint of Right ear pain, described as moderate, Quality is described as dull and constant, and is localized to the right. Patient reports no radiation. Patient started experiencing this hour(s) and it has been constant. No relieving factors improve symptom(s), No exacerbating factors reported . Patient notes fever/chills and headaches. Patient did receive the following treatments prior to arrival, other (Finishing a course of Augmentin) Related Data Home Medications Medication Instructions Recorded Confirmed levothyroxine 175 mcg tablet 137 mcg PO DAILY 08/21/14 03/11/22 multivitamin (Daily Multi-Vitamin 1 ea PO DAILY 08/21/14 03/11/22 tablet) magnesium gluconate 27 mg 27 mg PO DAILY 10/12/14 03/11/22 magnesium (500 mg) tablet trazodone 50 mg tablet 50 mg PO HS 10/12/14 03/11/22 pantoprazole 40 mg tablet,delayed 40 mg PO BID 05/15/16 03/11/22 release tacrolimus 1 mg capsule, 2 mg PO QAM 07/22/17 03/11/22 immediate-release (Prograf) venlafaxine 150 mg tablet,extended 225 mg PO DAILY 07/22/17 03/11/22 release 24 hr docusate sodium 100 mg capsule 100 mg PO TID PRN PRN 07/31/17 03/11/22 (Colace) ondansetron 4 mg disintegrating 4 mg PO Q6H PRN PRN Nausea / 10/12/17 03/11/22 tablet Vomiting ##20 lidocaine 5 % topical patch 1 patch topical DAILY PRN 10/18/18 03/11/22 (Lidoderm) omega-3 fatty acids 1,000 mg 1,000 mg PO DAILY 10/18/18 03/11/22 capsule (Fish Oil Concentrate) polyethylene glycol 3350 17 17 gm PO PRN PRN 10/18/18 03/11/22 gram/dose oral powder (Miralax) valacyclovir 1 gram tablet 2,000 mg PO PRN PRN 10/18/18 03/11/22 meclizine 25 mg tablet 25 mg PO TID PRN 03/29/19 03/11/22 mycophenolate mofetil 250 mg 250 mg PO 2 CAPS BID 03/29/19 03/11/22 capsule (CellCept) nitroglycerin 0.4 mg sublingual 0.4 mg sublingual Q5M PRN 03/29/19 03/11/22 tablet (Nitrostat) sildenafil 100 mg tablet (Viagra) 100 mg PO PRN PRN 03/29/19 03/11/22 tacrolimus 1 mg capsule, 1 mg PO HS 04/14/19 03/11/22 immediate-release (Prograf) clopidogrel 75 mg tablet (Plavix) 75 mg PO HS 08/08/19 03/11/22 prochlorperazine maleate 10 mg 10 mg PO Q6H PRN Nausea/headache 08/08/19 03/11/22 tablet #10 tabs atorvastatin 20 mg tablet (Lipitor) 10 mg PO HS 01/30/20 03/11/22 verapamil 120 mg tablet,extended 120 mg PO DAILY 01/30/20 03/11/22 release acetaminophen 500 mg tablet 1,000 mg PO Q6H PRN 02/08/20 03/11/22 (Tylenol Extra Strength) gabapentin 300 mg capsule 300 mg PO DIRECTED 05/15/20 03/11/22 hydroxyzine HCl 50 mg/mL 25 mg IM BID 10/18/20 03/11/22 intramuscular solution alprazolam 0.5 mg tablet 0.5 mg PO ONCE PRN claustrophobia 10/19/20 03/11/22 #2 tabs albuterol sulfate 90 mcg/actuation 2 puff inhalation 6XD 04/25/21 03/11/22 aerosol inhaler (ProAir HFA) carvedilol 6.25 mg tablet 6.25 mg PO BID 04/25/21 03/11/22 cyclobenzaprine 5 mg tablet 5 mg PO TID PRN 04/25/21 03/11/22 mometasone-formoterol HFA 200 2 puff inhalation BID #13 grams 05/08/21 03/11/22 mcg-5 mcg/actuation aerosol inhaler (Dulera) amoxicillin 875 mg-potassium 1 tab PO BID 10 days #20 tabs 03/05/22 03/11/22 clavulanate 125 mg tablet hydroxyzine HCl 25 mg tablet 25 mg PO BID 03/05/22 03/11/22 losartan 100 mg tablet 1 tab PO DAILY 03/05/22 03/11/22 ropinirole 0.25 mg tablet 2 tab PO QHS 03/05/22 03/11/22 Previous Rx's Medication Instructions Recorded docusate sodium 100 mg capsule 100 mg PO TID PRN PRN 07/31/17 (Colace) ondansetron 4 mg disintegrating 4 mg PO Q6H PRN PRN Nausea / 10/12/17 tablet Vomiting ##20 prochlorperazine maleate 10 mg 10 mg PO Q6H PRN Nausea/headache 08/08/19 tablet #10 tabs alprazolam 0.5 mg tablet 0.5 mg PO ONCE PRN claustrophobia 10/19/20 #2 tabs mometasone-formoterol HFA 200 2 puff inhalation BID #13 grams 05/08/21 mcg-5 mcg/actuation aerosol inhaler (Dulera) amoxicillin 875 mg-potassium 1 tab PO BID 10 days #20 tabs 03/05/22 clavulanate 125 mg tablet Allergies Allergy/AdvReac Type Severity Reaction Status Date / Time metoclopramide HCl Allergy Intermediate TARDIIVE Unverified 03/11/22 22:57 [From Reglan] DYSKINESIA oxycodone HCl [From Percocet] Allergy Intermediate Unverified 03/11/22 22:56 simvastatin [From Zocor] Allergy Intermediate MYOCLONUS Unverified 03/11/22 22:56 esomeprazole magnesium AdvReac Diarrhea Unverified 03/11/22 22:56 [From Nexium] DIMOTROPE Allergy Mild Uncoded 03/11/22 22:56 ORNADE DIMOTROPE Allergy Unknown Uncoded 03/11/22 22:56 General Stated Complaint: EarProblem ROBIN: 3 Review of Systems Narrative: No cough. Positive sore throat, body ache, sick contact with a person who tested positive for COVID-19. Patient is immunized. PFSH All Active Problems (Updated 03/11/22 @ 23:15 by Shaji Campbell MD) Acute right otitis media (Acute) Acute otitis externa of right ear (Acute) Vocal cord dysfunction (Acute) Asthma (Chronic) Oropharyngeal dysphagia (Acute) Femoroacetabular impingement of left hip (Acute) Tardive dyskinesia (Acute 10/12/14) Abnormal movements (Acute) Lumbar back pain with radiculopathy affecting left lower extremity (Acute) Back pain with history of spinal surgery (Acute) Weakness of left lower extremity (Acute) Subcutaneous mass of left lower extremity (Acute) Acute febrile illness (Acute) Status post pancreas transplantation (Acute) Hypertension (Acute) History of diabetes mellitus, type I (Acute) Tendinitis of left hip flexor (Acute) Strain of flexor muscle of left hip (Acute) History of colonoscopy (Chronic) 2015-pitting of colonic mucosa Hyponatremia (Acute) Near syncope (Acute) Atopic dermatitis (Acute) Medical History Carpal tunnel syndrome of right wrist (10/12/14) Depression Dyspnea on exertion Gastroparesis Hernia History of diabetes mellitus HTN (hypertension) Hypothyroidism (acquired) Left hemiparesis Lumbar back pain Migraine Pancreas transplanted Right shoulder pain Scoliosis 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) Vertigo Surgical History History of appendectomy History of arthroscopic knee surgery Left History of carpal tunnel release Right History of esophagogastroduodenoscopy (EGD) History of pancreas transplant History of shoulder surgery R shoulder Trigger finger, right middle finger S/P release on 02/08/2020 Family History Father COPD (chronic obstructive pulmonary disease) Mother Hypertension Status post heart valve replacement AGE 5 Migraine Parkinsons Brother Enlarged prostate no cancer Other Heart disease Social History Smoking/Tobacco Use Status: Never Smoking risk assessment performed?: Yes Alcohol Intake: never Drug use: Never Substance use type: does not use Household members: family Housing: house Pets and animals: Yes Pets and animals: cat(s) and dog(s) Current gender identity: male What is your relationship status?: Panel score (0-1 are the most socially isolated patients): 1 Seatbelt use: always Do you feel safe at home: Yes Do you feel safe in your relationship?: Yes Exam Narrative Exam Narrative: GEN: awake, alert, oriented 3. Pleasant, well groomed, interactive. HEAD: Normocephalic, atraumatic ENT: Mucous membranes moist, oropharynx slightly erythematous, no exudate or swelling, External ear exam reveals cobblestoning and swelling of the right external ear and canal. Tympanic membranes visualized and pearlescent bilaterally. EYES: PERRL, EOMI NECK: Full ROM, no RANDOLPH, no menigismus CHEST/RESP: Nontender, clear to auscultation bilateral, no wheeze/rhonchi/rales CARDIOVASCULAR: RRR, no murmur, rub ketan. 2+ Rad pulse bilateral ABDOMEN: Soft, nontender, no mass. +Bowel sounds Neuro: Grossly normal neurologic exam, conversant, interactive. Psych: Speech fluent, thoughts congruent, affect normal Course Vital Signs Vital signs: Vital Signs Temperature 36.3 C L 03/11/22 22:48 Pulse 76 03/11/22 22:48 Respiratory Rate 16 03/11/22 22:48 Blood Pressure 162/81 H 03/11/22 22:48 Pulse Oximetry 96 03/11/22 22:48 Temperature 36.3 C L 03/11/22 22:48 Temperature Source Skin 03/11/22 22:48 Pulse 76 03/11/22 22:48 Respiratory Rate 16 03/11/22 22:48 Respiratory Effort 03/11/22 22:58 Blood Pressure 162/81 H 03/11/22 22:48 Blood Pressure Position Sitting 03/11/22 22:48 Pulse Oximetry 96 03/11/22 22:48 Oxygen Delivery Method Room Air 03/11/22 22:48 Oxygen Flow Rate 0 03/11/22 22:48 Pain Level 6 03/11/22 22:48
[2022-03-13 10:54] LABS: COVID-19 RT-PCR UVMMC Result Negative (Negative)
== END 2022-03-11 23:43 | disposition home or self-care (01) ==
PROVIDERS: Emergency Provider Emergency Medicine; PCP Family Medicine
DX: H60.501 Unspecified acute noninfective otitis externa, right ear (principal); I10 Essential (primary) hypertension; E11.43 Type 2 diabetes mellitus with diabetic autonomic (poly)neuropathy; K31.84 Gastroparesis; Z20.822 Contact with and (suspected) exposure to COVID-19
CPT/HCPCS: 99283; U0003; 99284

== ENCOUNTER 2022-03-13 18:21 | Outpatient (REF) | payer BC, SELFPAY ==
--- OUTSIDE RECORDS SUMMARY | 2022-03-13 18:23 | XMS_ITS | Encounter Summary ---
:1965 Author Organization [place] [address] Care Team Providers Name Role Phone Anna Mullen MD Primary Care Provider Encounter Details Date Type Department Care Team Description 01/29/2022 Office Visit Solid Organ Chobanian, Obstructive sle ep apnea syndrome; [place] [facility]to Stoddard MD Aftercare following organ transplant; [facility] transplant; [facility] DR Julio watson [place], [place] TRANSPLANT [id number] SURGERY [phone] [place], [place] [address] Social History Tobacco Use Types Packs/Day Years Used Date Never Smoker Smokeless Tobacco: Never Used Alcohol Use Standard Drinks/Week Comments No 0 (1 standard drink = 0.6 oz pure alcoho l) history of abuse, stopped 1996 Sex Assigned at Date Recorded Male 05/29/2021 11:28 PM EDT documented as of this encounter Last Filed Vital Signs Vital Sign Reading Time Taken Comments Blood Pressure 140/82 01/29/2022 9:13 AM EDT Pulse 64 01/29/2022 9:13 AM EDT Temperature 36.9 ??C (98.5 ??F) 01/29/2022 9:13 AM EDT Respiratory Rate - - Oxygen Saturation 98% 01/29/2022 9:13 AM EDT Inhaled Oxygen Concentration - - Weight 101.7 kg (224 lb 3.2 oz) 01/29/2022 9:13 AM EDT Height - - Body Mass Index 30.41 05/30/2021 8:38 AM EDT documented in this encounter Progress Notes Eriberto Melgar MD - 01/29/2022 9:20 AM EDT Transplant Medicine Follow Up Richard Hsu [id number] 1965 Transplant ID: Date:?? 01/29/2022 Patient: Richard Hsu Transplant Date: 08/28/2013 Organ(s) Pancreas Sycuan organ diagnosis: Diabetes Mellitus - Type I (Pancreas) Days from Transplant: 8?? 02/09?years History of Present Illness: Mr. Richard Hsu is a 56??y.o. years old male who is s/p Pancreas transplant on 08/28/2013 (Pancreas). His post-op course was uneventful except for an admission Aug 06 2019 for a CVA/TIA. He is followed by Dr. Martinez. When he was last seen May 2021, he was complaining of dysphagia, swallowing dysfunction and QUIÑONES,with wheezing. He underwent a pulmonary evaluation which was normal and saw Neurology who was to schedule a number of tests and see him back in 2 months. No scheduling of tests or a follow up appointment was completed. Instead per our recommendations he met with a sleep specialist at [facility] who had previously diagnosed sleep apnea nd finally got him a CPAP machine. He said miraculously every complaint he had disappeared, he has more energy and believes he breathes easier and swallowsnormally. For the record he has had four Sars-CoV-2 vaccinations (Moderna, last one 09/28/21). He has incidentally been exposed to COVID but has never contracted the infection. He has known spike protein Ab to the Sars-CoV-2 virus. Historically: ?? In 2019, he was evaluated here at with nuclear stress test and found EF 61%, +coronary arterial calcifications. Vitamin D3 dosing was dropped to 2000 units Vit D2 daily. He has been compliant with his immunosuppressive medications and fluid intake. Has chronic problems with his gastroparesis but voiced no new complaints.He reports increased muscle weakness with atrophyin his right hand which initially started as knuckle pain in middle fingers. His sugars are well controlled and compliant with his HCM testing.??IN December 2019 he developed an acute asthmatic attack and was given 5 day prednisone burst. He also was placed on verapapmil by Dr. Mullen for slightly climbing BPs. ?? 1)two pre malignant skin lesions on his scalp which are being removed in Dermatology 2)s/p hyponatremia due to poor salt intake; could becoming hypoaldosterone 3)hypocalcemia and hypophosphatemia due to poor Vit D status but with calcific coronaries, will be cautious re: over zealous Rx ?? Routine Health Maintenance: Healthcare maintenance for a transplant recipient: Immunizations (no live virus or modified bacterial vaccines) Prevnar 13 once in a lifetime Pneumovax 23 every 5 years Tdap every 10 years Annual flu shot NEEDS FIRST WEEK of MAY NO SHINGLES VACCINEs COVID vaccine: Moderna #1 and #2 10/2020 and #3 03/2021 Annual PCP exam Annual YULISSA and PSA for males over 40 Annual pap gyne for females (pap if cervix present; visual inspection if no cervix present) Annual mammogram for females over 40, younger than 40 if family hx positive Every 5 year colonoscopy after age 50 Monthly self skin exam, daily spf 50 sunblock, annual derm consult if hx of skin cancer Annual eye exam Semi annual dental evaluation with prophylactic antibiotics Cardiac stress test after age 50, every 3 years for diabetics, every 5 for non diabetics - NEEDS Sycuan kidney ultrasound looking for renal cell CA, every 5 years post transplant Bone density assessment every 9-12 years post transplant Annual fasting lipid profile Annual PTH-Vit D3 assessment until normalized Annual spot urine for creatinine, protein, calcium, phosphate, magnesium and total volume ?? ROS: Review of Systems - Denies fevers, chills, nausea, vomiting, diarrhea, abd pain, chest pain, sob, graft tenderness,. Allother review of systems were neither positive or negative, except noted above? Active Ambulatory Problems ?? Diagnosis Date Noted ??? LBP radiating to right leg 01/28/2011 ??? Diabetes mellitus 01/15/2012 ??? Stroke-like symptoms 01/15/2012 ??? Hypertension 01/15/2012 ??? Gastroparesis due to DM 01/15/2012 ??? Migraine 01/15/2012 ??? Pancreatitis 08/30/2013 ??? Immunosuppression 08/30/2013 ??? 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 Nevus 09/07/2014 ??? Vitiligo 09/07/2014 ??? Dehydration 08/30/2015 ??? 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 08/06/2016 ??? Depression 08/06/2016 ??? Aftercare following organ transplant 08/06/2016 ??? Encounter for long-term (current) use of other medications 08/06/2016 ??? Prophylactic immunotherapy 02/11/2017 ??? Fever 07/31/2017 ??? Coxsackie virus infection 09/28/2017 ??? Other chest pain 12/31/2018 ??? Hypertension secondary to other renal disorders 02/22/2019 ??? TIA (transient ischemic attack) 08/06/2019 ??? Ischemic stroke 08/30/2019 ??? Globus sensation 09/15/2019 ? Resolved Ambulatory Problems ?? Diagnosis Date Noted ??? Edema 01/15/2012 ? Past Medical History: Diagnosis Date ??? ASCVD (arteriosclerotic cardiovascular disease) ? Breathing problem recently ??? Chronic pain 11 years old ??? Circulatory disease recently ??? Diabetes 17 years old ??? Digestive problems 22 years old ??? Gastroparesis ? Genital disease, male 5 years ago ??? Headache(784.0) since 12 years old ??? Heart disorder last three years ??? Hormone disorder awhile ago ??? HTN (hypertension) ? Hypertensive disease 17 years old ??? Hypothyroid ? IDDM (insulin dependent diabetes mellitus) ? Musculoskeletal disease 11 years old ??? Nervous system disorder 1977 ??? Other ill-defined conditions(799.89) 3 years ago ??? Papillary fibroelastoma of heart ? Severe headache ? Past Surgical History ? Past Surgical History: Procedure Laterality Date ??? APPENDECTOMY ? BRAIN SURGERY ?? 1977 ?? stroke paralyze left side neck down ??? CARPAL TUNNEL RELEASE ? CREATED BY INTERFACE ? EGD-BIOPSY Procedure Date: 07/18/2009 ??? CREATED BY INTERFACE ? Entered not Verified Procedure Date: 10/24/2010 ??? PRO COLONOSCOPY, DIAGNOSTIC N/A 10/24/2014 ?? COLONOSCOPY, DIAGNOSTIC performed by Anna Rapp MD at [facility] ENDOSCOPY ??? PRO TRANSPLANT ALLOGRAFT PANCREAS ?? 08/28/2013 ?? @PANCREATIC TRANSPLANT performed by Iraj Keller MD at [facility] MAIN OR ??? PRO TRANSPLANT, PREP DONOR PANCREAS ?? 08/28/2013 ?? @PREPARATION CADAVERIC PANCREAS, STANDARD performed by Iraj Keller MD at [facility] MAIN OR ??? PRO UNLISTED PROCEDURE, MUSCULOSKELETAL SYSTEM, GENERAL ?? 10 years ?? carpel tunnel ??? PRO UPPER GI ENDOSCOPY, BIOPSY ?? 12/31/2011 ?? UPPER GASTROINTESTINAL ENDOSCOPY,WITH BIOPSY SINGLE OR MULTIPLE performed by CLAYTON BHAKTA at [facility] ENDOSCOPY ??? PRO UPPER GI ENDOSCOPY, BIOPSY N/A 08/15/2015 ?? EGD WITH BIOPSY performed by Clayton Bhakta MD at [facility] ENDOSCOPY ??? SHOULDER SURGERY ? UPPER GI ENDOSCOPY, EXAM ?? 12/31/2011 ?? UPPER GI ENDOSCOPY performed by CLAYTON BHAKTA at [facility] ENDOSCOPY ? Current Outpatient Medications: ??? mycophenolate (Cellcept) 250 mg Capsule, TAKE TWO CAPSULES BY MOUTH TWICE A DAY, Disp: 360 capsule, Rfl: 1 ??? carvediloL (Coreg) 6.25 mg Tablet, TAKE ONE TABLET BY MOUTH TWICE A DAY, Disp: 180 tablet, Rfl: 2 ??? Prograf 1 mg Capsule, TAKE 2 CAPSULES ORALLY IN MORNING AND 1 CAPSULE IN EVENING, Disp: 90 capsule, Rfl: 9 ??? fish oil-omega-3 fatty acids 1,000 mg Capsule, Take 2 g by mouth daily., Disp: , Rfl: ??? losartan (COZAAR) 100 mg Tablet, TAKE 1 TABLET BY MOUTH EVERY NIGHT (REPLACING LISINOPRIL), Disp: 30 tablet, Rfl: 11 ??? diazePAM (Valium) 5 mg Tablet, Take 1 tablet by mouth as needed for Anxiety. INSTRUCTIONS: Take 1-2 tablets (5mg - 10mg) by mouth 30 to 60 minutes prior to MRI procedure., Disp: 2 tablet, Rfl: 0 ??? rOPINIRole (Requip) 0.25 mg Tablet, Take 0.25 mg by mouth daily., Disp: , Rfl: ??? hydrALAZINE (Apresoline) 25 mg Tablet, TAKE ONE TABLET BY MOUTH TWICE A DAY, Disp: 180 tablet, Rfl: 3 ??? fludrocortisone (Florinef) 0.1 mg Tablet, TAKE ONE TABLET BY MOUTH EVERY DAY (Patient taking differently: Take 0.05 mg by mouth daily.), Disp: 30 tablet, Rfl: 0 ??? betamethasone dipropionate (DIPROLENE) 0.05 % Cream, , Disp: , Rfl: ??? HYDROcodone-acetaminophen (Ashton) 10-325 mg Tablet, TAKE 1 TABLET BY MOUTH TWICE DAILY NEEDEDFOR PAIN, Disp: , Rfl: ??? acetaminophen (Tylenol) 500 mg Tablet, Take 1,000 mg by mouth every 6 hours as needed for Pain.,Disp: , Rfl: ??? amoxicillin (Amoxil) 500 mg Capsule, TAKE 4 CAPSULES BY MOUTH 1 HOUR PRIOR TO DENTAL APPOINTMENT, Disp: , Rfl: ??? OneTouch Ultra Blue Test Strip Strip, TEST BLOOD SUGAR ONCE DAILY, Disp: , Rfl: ??? verapamil SR (Calan-SR) 120 mg Tablet Sustained Release, Take 120 mg by mouth daily., Disp: , Rfl: ??? gabapentin (Neurontin) 300 mg Capsule, Take 300 mg by mouth 3 times daily. Takes 1 caps in the morning, 2 caps in the afternoon and 2 caps at night., Disp: , Rfl: ??? clopidogrel (PLAVIX) 75 mg Tablet, Take 1 tablet by mouth daily., Disp: 90 tablet, Rfl: 3 ??? venlafaxine (EFFEXOR-XR) 150 mg Capsule, Sust. Release 24 hr, Take 150 mg by mouth Daily., Disp:, Rfl: ??? venlafaxine XR (EFFEXOR-XR) 75 mg Capsule, Sust. Release 24 hr, Take 75 mg by mouth daily. Taking with 150 mg to total 225 mg total, Disp: , Rfl: ??? atorvastatin (LIPITOR) 10 mg Tablet, Take 1 tablet by mouth daily., Disp: 90 tablet, Rfl: 2 ??? valACYclovir (VALTREX) 500 mg Tablet, TAKE ONE TABLET BY MOUTH THREE TIMES A DAY, Disp: 30 tablet, Rfl: 3 ??? levothyroxine (SYNTHROID) 150 mcg Tablet, Take 150 mcg by mouth daily., Disp: , Rfl: ??? fexofenadine (BECKY) 60 mg Tablet, Take 60 mg by mouth daily., Disp: , Rfl: ??? Magnesium Gluconate (MAG-G) 27 mg (500 mg) Tablet, Take 1 tablet by mouth daily., Disp: 30 tablet, Rfl: 11 ??? multivitamin Capsule, Take 1 capsule by mouth daily., Disp: , Rfl: ??? pantoprazole (PROTONIX) 40 mg Tablet, Delayed Release (E.C.), Take 40 mg by mouth 2 times daily., Disp: , Rfl: ??? psyllium 3.5 gram Powder in Packet, Take 1 packet by mouth daily., Disp: 30 each, Rfl: 0 ??? ondansetron (ZOFRAN) 8 mg Tablet, Take 1 tablet by mouth every 8 hours as needed for Nausea., Disp: 15 tablet, Rfl: 0 ??? sildenafil (VIAGRA) 100 mg tablet, Take 1 tablet by mouth as needed for Erectile Dysfunction. supply Dx code :250.60, Disp: 60 tablet, Rfl: 6 ?? Immunization History Administered Date(s) Administered ??? Influenza PF, Split 05/31/2014, 05/19/2016, 08/17/2019 ??? Influenza Vaccine W/preservative, Quadrivalent 06/11/2019 ??? Influenza Vaccine w/Preservative, Split 05/22/2012 ??? Influenza Vaccine, Whole 06/11/2009 ??? Moderna Covid-19 Vaccine (100mcg/0.5ml) 10/31/2020, 11/28/2020, 04/18/2021 ??? Pneumococcal Conjugate (13 Valent) 02/22/2016 ??? Pneumococcal Polyvalent 23 08/31/2003, 06/14/2014, 08/17/2019 ??? Tdap Vaccine 03/05/2011 Allergies Allergen Reactions ??? Lisinopril Shortness Of Breath ??? Oxycodone Hcl ??? Esomeprazole Other reaction(s): Diarrhea ??? Nexium [Esomeprazole Magnesium] Diarrhea Any acid reflux medication causes severe diarrhea ??? Omeprazole Other reaction(s): Diarrhea ??? Prilosec [Omeprazole Magnesium] Diarrhea ??? Reglan [Metoclopramide Hcl] TD ??? Simvastatin Vitals Flowsheet Row Office Visit from 01/29/2022 in [place] [facility] Weight 101.7 kg (224 lb 3.2 oz) Temp 36.9 ??C (98.5 ??F) Temp src Oral Heart Rate 64 BP 140/82 Patient Position Sitting SpO2 98 % Gen - AAO x 3 in NAD Skin - No exanthem.,pale HEENT - Mucous membranes moist. ??No dependent edema. PERRL Conj pink and sclerae white Neck supple, gulps while swallowing Neck no masses, mid line masses, nodes, JVD, bruits Chest symmetric expansion Cor accentuated S2, no murmur, gallop or rub No edema abdomen rotund, no HS megaly, masses Joints free from pathology, mobile Neuro grossly intact CN symmetric, DTRs 1+= UE/LE Recent Results (from the past 24 hour(s)) Comprehensive metabolic panel (non-fasting) Result Value Ref Range Glucose Lvl 102 65 - 199 mg/dL BUN 12 10 - 20 mg/dL Creatinine 0.85 0.80 - 1.50 mg/dL Sodium 133 (L) 135 - 145 mmol/L Potassium 4.3 3.5 - 5.0 mmol/L Chloride 100 98 - 107 mmol/L CO2 27 22 - 31 mmol/L Anion Gap 6 5 - 15 mmol/L Calcium 9.0 8.5 - 10.5 mg/dL Total Protein 6.7 6.1 - 8.0 g/dL Albumin 4.3 3.2 - 5.2 g/dL AST 23 0 - 39 unit/L ALT 20 0 - 55 unit/L Alk Phos 102 40 - 130 unit/L Total Bilirubin 1.5 (H) 0.2 - 1.3 mg/dL Estimated GFR 99 >=60 mL/min/1.73 m?? Lipase Result Value Ref Range Lipase 23 0 - 60 unit/L Amylase Result Value Ref Range Amylase 53 28 - 100 unit/L Uric acid Result Value Ref Range Uric Acid 6.3 3.5 - 8.5 mg/dL Cholesterol, total Result Value Ref Range Chol, Total 114 mg/dL Lipid Interpretation See Note Phosphorus Result Value Ref Range Phosphorus 2.2 (L) 2.5 - 4.5 mg/dL Magnesium Result Value Ref Range Magnesium 0.66 (L) 0.69 - 1.07 mmol/L Reticulocyte Count Result Value Ref Range Retic Ct % 1.4 0.7 - 2.6 % Retic Ct Abs 0.060 0.030 - 0.120 x10(6)/mcL Immature Retic% 4.6 0.0 - 15.6 % Reticulated Hgb 34.7 31.3 - 40.2 pg Hemoglobin A1c Result Value Ref Range Hemoglobin A1C 5.2 4.3 - 5.6 % Est Avg Gluc 103 mg/dL Tacrolimus level Result Value Ref Range Tacrolimus Lvl 9.4 ng/mL Hemogram Result Value Ref Range WBC 5.4 4.0 - 9.5 x10(3)/mcL RBC 4.33 (L) 4.58 - 5.54 x10(6)/mcL Hemoglobin 13.4 (L) 13.7 - 16.5 g/dL Hematocrit 39.0 (L) 40.5 - 48.5 % MCV 90.1 82.9 - 93.1 fL MCH 30.9 27.5 - 32.1 pg MCHC 34.4 32.0 - 35.7 g/dL Platelets 202 145 - 357 x10(3)/mcL RDWSD 39.8 36.0 - 45.0 fL RDWCV 12.1 11.4 - 13.8 % MPV 10.6 7.6 - 12.9 fL nRBC % Auto 0.0 % nRBC Abs Auto 0.000 0.000 - 0.000 x10(3)/mcL Differential, Automated Result Value Ref Range Neutrophils % 41.4 % Neutr Abs (ANC) 2.23 1.70 - 6.10 x10(3)/mcL Lymphocytes % 45.0 % Lymphocytes Abs 2.4 0.9 - 3.2 x10(3)/mcL Monocytes % 9.1 % Monocyte Abs 0.5 0.3 - 0.9 x10(3)/mcL Eosinophils % 3.2 % Eosinophils Abs 0.2 0.0 - 0.4 x10(3)/mcL Basophils % 0.9 % Basophils Abs 0.0 0.0 - 0.1 x10(3)/mcL Immature Gran % 0.40 % Kym Gran Abs 0.02 0.00 - 0.04 x10(3)/mcL TSH Result Value Ref Range TSH 0.25 (L) 0.27 - 4.20 mcIU/mL PSA Screen Result Value Ref Range PSA Total 0.37 0.00 - 4.00 ng/mL Lipid Panel (Reflex Direct LDL) Result Value Ref Range Chol, Total 114 mg/dL Triglycerides 127 mg/dL HDL 39 mg/dL LDL Cholesterol 50 mg/dL Chol/HDL Ratio 2.9 ratio Lipid Interpretation See Note Urinalysis with reflex Culture Specimen: Clean Catch Urine Result Value Ref Range Glucose UA Negative Negative mg/dL Protein UA Negative Negative mg/dL Bilirubin UA Negative Negative mg/dL Urobilinogen UA Normal Normal mg/dL pH UA 6.5 5.0 - 8.0 Blood UA Negative Negative mg/dL Ketones UA Negative Negative mg/dL Nitrite UA Negative Negative Leukocytes UA Negative Negative mcL Appearance UA Clear Clear Spec [place] UA 1.008 1.005 - 1.030 Color UA Yellow Yellow Culture Reflexed No Sars-CoV-2 spike antibody detected Impression/ Plan: Richard Hsu is s/p Pancreas transplant. He was transplanted on 08/28/2013 (Pancreas). Mr. Richard Hsu is maintaining good graft function. He remains hydrated. . I also informed Mr. Richard Hsu to keep up with all recommended health maintenance visits, routine lab testing and screenings. Transplant Status : His blood sugars are well controlled with fasting levels wnl.Have chronic gastroparesis symptoms which are stable and with no escalation of symptoms.His amylase and lipase are stable indicating good graft function. ?? Immunosuppression Currently on Prograf: 2 mg/ 1mg and Cellcept: 500 mg BID .Prograf levels are in therapeutic range. 6ng +/- 1.0 ?? PO4/Mg Calcium,magnesium and phos levels are low suggests Vit D3 deficiency Dropped Vit D replacement..Continue with magnesium gluconate supplementation. ?? Hypertension Lisinopril 20 mg bid; ?? Hyponatremia Salt his food ;??on Florinef ?? Discussion with the patient and/or family concerned the following: ???Diagnostic results or recommended studies ???Prognosis; ???Risks and benefits of management; ???Instructions for management; ???Compliance with treatment; ???Risk factor reduction; ???Patient and family education. Total time: 25 of 30 minutes in direct face to face direct care counselor. Follow-up: 6 months Labs quarterly. 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
--- OUTSIDE RECORDS SUMMARY | 2022-03-13 18:23 | XMS_ITS | Encounter Summary ---
:1965 Author Organization [facility] Address [address] [place] [address] Care Team Providers Name Role Phone Anna Mullen MD Primary Care Provider Reason for Visit Reason Onset Date Comments Medication Refill 10/15/2021 Encounter Details Date Type Department Care Team Description 10/15/2021 Refill Solid Organ Eriberto Melgar H/O pancr eas transplant; [place] [facility] [place] Arlyn director long term care current use of immunosuppressi ve drug; [facility] Vit curry D deficiency [address] [place] [address] [place] [address] [phone] Social History Tobacco Use Types Packs/Day Years Used Date Never Smoker Smokeless Tobacco: Never Used Alcohol Use Standard Drinks/Week Comments No 0 (1 standard drink = 0.6 oz pure alcoho l) history of abuse, stopped 1996 Sex Assigned at Date Recorded Male 05/29/2021 11:28 PM EDT documented as of this encounter Plan of Treatment Scheduled Orders Name Type Priority Associated Diagnoses Order S chedule CBC (with Diff) Lab Routine H/O pancreas tra nsplant As Needed for 25 director long term care current use of Occ urrences starting immunosuppressiv e drug 10/15/2021 until Vitamin D deficiency 023, 1 completed Reticulocyte Count Lab Routine H/O pancreas transplant As Needed for 25 director long term care current use of Occ urrences starting immunosuppressiv e drug 10/15/2021 until Vitamin D deficiency 023, 1 completed Magnesium Lab Routine H/O pancreas tra nsplant As Needed for 25 director long term care current use of Occ urrences starting immunosuppressiv e drug 10/15/2021 until Vitamin D deficiency 023, 1 completed Phosphorus Lab Routine H/O pancreas tra nsplant As Needed for 25 long-term current use of Occ urrences starting immunosuppressiv e drug 10/15/2021 until Vitamin D deficiency 023, 1 completed Cholesterol, total Lab Routine H/O pancreas transplant As Needed for 25 long-term current use of Occ urrences starting immunosuppressiv e drug 10/15/2021 until Vitamin D deficiency 023, 1 completed Uric acid Lab Routine H/O pancreas tra nsplant As Needed for 25 director long term care current use of Occ urrences starting immunosuppressiv e drug 10/15/2021 until Vitamin D deficiency 023, 1 completed Urinalysis with reflex Lab Routine H/O pancr eas transplant As Needed for 25 Culture director long term care current use of Occ urrences starting immunosuppressiv e drug 10/15/2021 until Vitamin D deficiency 023, 1 completed Amylase Lab Routine H/O pancreas tra nsplant As Needed for 25 director long term care current use of Occ urrences starting immunosuppressiv e drug 10/15/2021 until Vitamin D deficiency 023, 1 completed Lipase Lab Routine H/O pancreas tra nsplant As Needed for 25 director long term care current use of Occ urrences starting immunosuppressiv e drug 10/15/2021 until Vitamin D deficiency 023, 1 completed Comprehensive metabolic Lab Routine H/O panc reas transplant As Needed for 25 panel (non-fasting) long-term current use of Occurrences starting immunosuppressiv e drug 10/15/2021 until Vitamin D deficiency 023, 1 completed Hemoglobin A1c Lab Routine H/O pancreas tra nsplant Every 3 months for 4 long-term current use of Occ urrences starting immunosuppressiv e drug 10/15/2021 until Vitamin D deficiency 023, 1 completed C-peptide Lab Routine H/O pancreas tra nsplant Every 3 months for 4 long-term current use of Occ urrences starting immunosuppressiv e drug 10/15/2021 until Vitamin D deficiency 023, 1 completed BKV Quant Blood Lab Routine H/O pancreas tra nsplant Every 4 Weeks for 12 director long term care current use of Occ urrences starting immunosuppressiv e drug 10/15/2021 until Vitamin D deficiency 023, 2 completed Tacrolimus level Lab Routine H/O pancreas tr ansplant As Needed for 25 director long term care current use of Occ urrences starting immunosuppressiv e drug 10/15/2021 until Vitamin D deficiency 023, 2 completed documented as of this encounter Results Tacrolimus level (01/29/2022 8:07 AM EDT) athologist Signature Tacrolimus Lvl 9.4 ng/mL [facility] Comment: Trough therapeutic range is 3-15 ng/mL, depending upon transplant type, time since transplantation, use of other immu nosuppressive drugs, comorbidities, and test method used. Tacrolimus concentration determined usin g the [employer] Tacrolimus electrochemiluminescence competitive imm unoassay. Results from different samples types and methods are not interchangeable. Specimen Anatomical Collection Method Collection Time Receive d Time (Source) Location / / Volume Laterality Blood 01/29/2022 8:07 AM 8:14 EDT AM EDT Resulting Agency Comment Spec In Lab Eriberto Melgar MD CHEMISTRY ORDERABLES Performing Organization Address City/State/[place] [address] BKV Quant Blood (01/29/2022 8:07 AM EDT) [facility] Method Time Signature BKV Blood Not Detected Not Detected [facility] Result IU/mL [facility] Comment: Indication for Study: Monitoring BKV DNA Analysis: The darin BKV test is an in vi tro nucleic acid amplification tests using real-time polymerase chain reactio n (PCR) assay for the quantitative measurement of BK virus (BKV) DNA in hum an EDTA plasma. Sample: EDTA plasma Method: darin BKV test used with the [employer] 0 platform ([employer]) Linear Range: 21.5 - 1.0 x 10^8 IU/mL (1 .33 - 8.00 log IU/mL) Note: The Nora darin BKV assay has been cleared by the U.S. Food and Drug Administration for clinical testing. Specimen Anatomical Collection Method Collection Time Receive d Time (Source) Location / / Volume Laterality Blood 01/29/2022 8:07 AM 2 EDT 10:30 AM EDT Resulting Agency Comment Spec In Lab Eriberto Melgar MD IMMUNOLOGY ORDERABLES Performing Organization Address City/[facility]/ZIP Code Phon e Number [address] Tacrolimus level (12/12/2021 9:08 AM EDT) P athologist Signature Tacrolimus Lvl 11.3 ng/mL [facility] Comment: Trough therapeutic range is 3-15 ng/mL, depending upon transplant type, time since transplantation, use of other immu nosuppressive drugs, comorbidities, and test method used. Tacrolimus concentration determined usin g the [employer] Tacrolimus electrochemiluminescence competitive imm unoassay. Results from different samples types and methods are not interchangeable. Specimen Anatomical Collection Method Collection Time Receive d Time (Source) Location / / Volume Laterality Blood 12/12/2021 9:08 AM 2 9:28 EDT AM EDT Resulting Agency Comment Spec In Lab Eriberto Melgar MD CHEMISTRY ORDERABLES Performing Organization Address City/[facility] Phon e Number [address] BKV Quant Blood (12/12/2021 9:08 AM EDT) Patholo gist Method Time Signature BKV Blood Not Detected Not Detected [facility] Result IU/mL [facility] Comment: Indication for Study: Monitoring BKV DNA Analysis: The darin BKV test is an in vi tro nucleic acid amplification tests using real-time polymerase chain reactio n (PCR) assay for the quantitative measurement of BK virus (BKV) DNA in hum an EDTA plasma. Sample: EDTA plasma Method: darin BKV test used with the 680 0 platform (Nora) Linear Range: 21.5 - 1.0 x 10^8 IU/mL (1 .33 - 8.00 log IU/mL) Note: The Nora darin BKV assay has been cleared by the U.S. Food and Drug Administration for clinical testing. Specimen Anatomical Collection Method Collection Time Receive d Time (Source) Location / / Volume Laterality Blood 12/12/2021 9:08 AM 2 3:05 EDT PM EDT Resulting Agency Comment Spec In Lab Eriberto Melgar MD IMMUNOLOGY ORDERABLES Performing Organization Address City/[facility] Phon e Number [address] C-peptide (12/12/2021 9:08 AM EDT) athologist Signature C-Peptide 2.7 1.1 - 4.4 [facility] ng/mL [facility] Comment: As of December 05, 2020, C-Peptide testing h as moved from the [employer] to the Nora Darin. Please note the updated reference intervals. Specimen Anatomical Collection Method Collection Time Receive d Time (Source) Location / / Volume Laterality Blood 12/12/2021 9:08 AM 2 9:28 EDT AM EDT Resulting Agency Comment Spec In Lab Eriberto Melgar MD CHEMISTRY ORDERABLES Performing Organization Address City/[facility] Phon e Number [address] Hemoglobin A1c (12/12/2021 9:08 AM EDT) athologist Signature Hemoglobin A1C 5.1 4.3 - 5.6 [facility] % [facility] Comment: Reference Range: 4.3 - 5.6% 5.7 - 6.4% - Increased Risk of Developin g Diabetes Mellitus >= 6.5% - Consistent with diagnosis of D iabetes Mellitus In the absence of hyperglycemia (i.e. pl asma glucose > 200 mg/dL) or classic symptoms of hyperglycemia a repeat measu rement of HbA1c should be performed on a separate sample to confirm the diagnos is. Diagnosis and Classification of Diabetes Mellitus, Diabetes Care 2013; 36: Suppl. 1, W93-31 Est Avg Gluc 99 mg/dL [facility] Comment: eAG equivalents for HbA1c percentages: HbA1c(%) ?eAG(mg/dL) 6.0 ?126 6.5 ?140 7.0 ?154 7.5 ?169 8.0 ?183 8.5 ?197 9.0 ?212 9.5 ?226 10.0 ? 240 Limitations: The eAG calculation has not been validated on women, individuals below 18 years old and above 70 years old, and individuals with hemoglobinopathies. Additional resources are available on [facility] ADA website. Edinson GRISSOM, Nathaniel J, Ari R, et al. ??Tr anslating the A1C assay into estimated average glucose values. ??Diabetes Care 2008:31(8):0577-1844. Specimen Anatomical Collection Method Collection Time Receive d Time (Source) Location / / Volume Laterality Blood 12/12/2021 9:08 AM 9:28 EDT AM EDT Resulting Agency Comment Spec In Lab Eriberto Melgar MD CHEMISTRY ORDERABLES Performing Organization Address City/State/ZIP [place] [address] Comprehensive metabolic panel (non-fasting) (12/12/2021 9:08 AM EDT) athologist Signature Glucose Lvl 103 65 - 199 [facility] mg/dL [facility] Comment: Diabetes: >=200 mg/dL plus symp toms BUN 12 10 - 20 mg/dL [facility] Creatinine 0.97 0.80 - 1.50 mg/dL [facility] Sodium 137 135 - 145 mmol/L [facility] Potassium 4.2 3.5 - 5.0 mmol/L [facility] Comment: Please note: ??Patients with WBC >100,00 0 may have falsely elevated Potassium levels. ??For accurate Potassium quantif ication in these patients send serum separator tube (gold top) for subsequent determinations. ??Contact the Clinical Chemistry Laboratory if there are any qu estions. Chloride 101 98 - 107 mmol/L [facility] CO2 27 22 - 31 mmol/L [facility] Anion Gap 9 5 - 15 mmol/L [facility] Calcium 9.3 8.5 - 10.5 mg/dL [facility] Total Protein 7.5 6.1 - 8.0 g/dL [facility] Albumin 4.7 3.2 - 5.2 g/dL [facility] AST 22 0 - 39 unit/L [facility] ALT 20 0 - 55 unit/L [facility] Alk Phos 128 40 - 130 unit/L [facility] Total Bilirubin 0.6 0.2 - 1.3 mg/dL [facility] Estimated GFR 88 >=60 mL/min/1.73 m?? [facility] Comment: This patient? s estimated glomerular filtration rate (eGFR) is between 88 mL/min/1.73 m2 (patients with less muscl e mass per kg body weight) and 102 mL/min/1.73 m2 (patients with more muscl e mass per kg body weight) as determined by the CKD-EPI equation. Asse ssment of eGFR is not appropriate when creatinine concentrations are rapidly ch anging. For clinical decisions where creatinine clearance will affect therapy , a 24-hour urine creatinine clearance may be advised. Assignment of CKD stage 1 - 5 for patien ts with an eGFR near the transition point between stages may be based on cli nical assessment of muscle mass and symptoms in addition to eGFR. Specimen Anatomical Collection Method Collection Time Receive d Time (Source) Location / / Volume Laterality Blood 12/12/2021 9:08 AM 9:28 EDT AM EDT Resulting Agency Comment Spec In Lab Eriberto Melgar MD CHEMISTRY ORDERABLES Performing Organization Address City/[facility]/ZIP Code Phon e Number [address] Lipase (12/12/2021 9:08 AM EDT) athologist Signature Lipase 22 0 - 60 [facility]OR[facility]ORY Specimen Anatomical Collection Method Collection Time Receive d Time (Source) Location / / Volume Laterality Blood 12/12/2021 9:08 AM 2 9:28 EDT AM EDT Resulting Agency Comment Spec In Lab Eriberto Melgar MD CHEMISTRY ORDERABLES Performing Organization Address City/[facility]/ZIP Code Phon e Number [address] Amylase (12/12/2021 9:08 AM EDT) athologist Signature Amylase 51 28 - 100 [facility]ORATORY Specimen Anatomical Collection Method Collection Time Receive d Time (Source) Location / / Volume Laterality Blood 12/12/2021 9:08 AM 2 9:28 EDT AM EDT Resulting Agency Comment Spec In Lab Eriberto Melgar MD CHEMISTRY ORDERABLES Performing Organization Address City/[facility]/ZIP Code Phon e Number [address] Uric acid (12/12/2021 9:08 AM EDT) athologist Signature Uric Acid 6.1 3.5 - 8.5 [facility] mg/dL [facility] Specimen Anatomical Collection Method Collection Time Receive d Time (Source) Location / / Volume Laterality Blood 12/12/2021 9:08 AM 2 9:28 EDT AM EDT Resulting Agency Comment Spec In Lab Eriberto Melgar MD CHEMISTRY ORDERABLES Performing Organization Address City/[facility]/ZIP Code Phon e Number [address] Cholesterol, total (12/12/2021 9:08 AM EDT) athologist Signature Chol, Total 117 mg/dL [facility] Comment: Lower Risk: <200 mg/dL Average Risk: 200-239 mg/dL Higher Risk: >ql=712 mg/dL Lipid Interpretation See Note [facility] Comment: Lipid management should be guided by a p atient? s ASCVD risk, goals and preferences. ACC/AHA Guidelines recommend high intens ity statin if clinical ASCVD or LDL greater than or equal to 190 mg/dL. [email or web address]/PDB-RWB-Csfraocnw Adults aged 40-75 with LDL 70-189 mg/dL should have their 10 year ASCVD risk estimated with the ACC/AHA ASCVD risk es timator http://tools.acc.org/BOSQP-Tbhz-Rdsxyglt r/ Statin should be discussed if risk great er than or equal to 7.5% in non-diabetics. With diabetes, moderate i ntensity statin is recommended if risk less than 7.5%, high intensity if risk g reater than or equal to 7.5%. Annual lipid monitoring on statins is no t necessary. Evaluate secondary causes of Triglycerid es greater than 500 mg/dL or LDL greater than 190 mg/dL: See table 6 of A CC/AHA Guideline. Lifestyle modification is a critical com ponent of ASCVD risk reduction. Specimen Anatomical Collection Method Collection Time Receive d Time (Source) Location / / Volume Laterality Blood 12/12/2021 9:08 AM 2 9:28 EDT AM EDT Resulting Agency Comment Spec In Lab Eriberto Melgar MD CHEMISTRY ORDERABLES Performing Organization Address City/State/[place] [address] Phosphorus (12/12/2021 9:08 AM EDT) athologist Signature Phosphorus 3.0 2.5 - 4.5 [facility] mg/dL [facility] Specimen Anatomical Collection Method Collection Time Receive d Time (Source) Location / / Volume Laterality Blood 12/12/2021 9:08 AM 2 9:28 EDT AM EDT Resulting Agency Comment Spec In Lab Eriberto Melgar MD CHEMISTRY ORDERABLES Performing Organization Address City/State/ZIP Code Phon e Number [address] (ABNORMAL) Magnesium (12/12/2021 9:08 AM EDT) athologist Signature Magnesium 0.68 (L) 0.69 - 1.07 [facility] mmol/L [facility] Specimen Anatomical Collection Method Collection Time Receive d Time (Source) Location / / Volume Laterality Blood 12/12/2021 9:08 AM 2 9:28 EDT AM EDT Resulting Agency Comment Spec In Lab Eriberto Melgar MD CHEMISTRY ORDERABLES Performing Organization Address City/[facility]/ZIP Code Phon e Number [address] Reticulocyte Count (12/12/2021 9:08 AM EDT) athologist Signature Retic Ct % 1.5 0.7 - 2.6 [facility] Retic Ct Abs 0.070 0.030 - [facility] 0.120 [facility] x10(6)/[facility] LABORATORY Immature Retic% 9.8 0.0 - 15.6 [facility] Reticulated Hgb 36.0 31.3 - [facility] 40.[address] [facility] Specimen Anatomical Collection Method Collection Time Receive d Time (Source) Location / / Volume Laterality Blood 12/12/2021 9:08 AM 2 9:28 EDT AM EDT Resulting Agency Comment Spec In Lab Eriberto Melgar MD HEMATOLOGY ORDERABLES Performing Organization Address City/[facility]/ZIP Code Phon e Number [address] Urinalysis with reflex Culture (12/12/2021 9:03 AM EDT) [facility] Method Time Signature Glucose UA Negative Negative [facility] mg/dL [facility] Protein UA Negative Negative [facility] mg/dL [facility] Bilirubin UA Negative Negative [facility] mg/dL [facility] Comment: Clinical correlation required for positi ve Urine Bilirubin results as false positive may occur with some drugs and d rug related products. If a false positive is suspected a serum total bili sinha should be considered if clinically indicated. Urobilinogen UA Normal Normal mg/dL [facility] pH UA 7.0 5.0 - 8.0 [facility] Blood UA Negative Negative mg/dL [facility] Ketones UA Negative Negative mg/dL [facility] Nitrite UA Negative Negative [facility] Leukocytes UA Negative Negative [facility]ORY Appearance UA Clear Clear [facility] Spec [place] UA 1.008 1.005 - 1.030 [facility] Color UA Yellow Yellow [facility] Culture Reflexed No [facility] Specimen Anatomical Collection Method Collection Time Receive d Time (Source) Location / / Volume Laterality Clean Catch 12/12/2021 9:03 AM 9:36 Urine EDT AM EDT Resulting Agency Comment Spec In Lab Eriberto Melgar MD URINE ORDERABLES Performing Organization Address City/State/[place] [address] documented in this encounter Visit Diagnoses Diagnosis H/O pancreas transplant 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 director long term care current use of immunosuppressi ve drug Vitamin D deficiency Unspecified vitamin D deficiency documented in this encounter Care Teams Oil Well Driller Relationship Specialty Start Date End Date Anna Mullen MD PCP - General 12/03/10 [address] [place] [address] documented as of this encounter
--- OUTSIDE RECORDS SUMMARY | 2022-03-13 18:23 | XMS_ITS | Encounter Summary ---
:1965 Author Organization [facility] [place] [address] Care Team Providers Name Role Phone Anna Mullen MD Primary Care Provider Encounter Details Date Type Department Care Team Description 01/28/2022 Transcribe Orders Laboratory Anna Mullen [facility]; [facility] MD Bruce Hypothyroidism, unspecified type Drive [address] [place] [address] [phone] Social History Tobacco Use Types Packs/Day Years Used Date Never Smoker Smokeless Tobacco: Never Used Alcohol Use Standard Drinks/Week Comments No 0 (1 standard drink = 0.6 oz pure alcoho l) history of abuse, stopped 1996 Sex Assigned at Date Recorded Male 05/29/2021 11:28 PM EDT documented as of this encounter Plan of Treatment Not on filedocumented as of this encounter Results Hemoglobin A1c (01/29/2022 8:07 AM EDT) athologist Signature Hemoglobin A1C 5.2 4.3 - 5.6 [facility] Comment: Reference Range: 4.3 - [...] Mellitus, Diabetes Care 2013; 36: Suppl. 1, S67-84 Est Avg Gluc 103 mg/dL [facility] Comment: eAG equivalents for HbA1c percentages: HbA1c(%) ?eAG(mg/dL) 6.0 ?126 6.5 ?140 7.0 ?154 7.5 ?169 8.0 ?183 8.5 ?197 9.0 ?212 9.5 ?226 10.0 ? 240 Limitations: The eAG calculation has not been validated on women, individuals below 18 years old and above 70 years old, and individuals with hemoglobinopathies. Additional resources are available on [facility] ADA website. Edinson GRISSOM, Nathaniel J, Ari R, et al. ??Tr anslating the A1C assay into estimated average glucose values. ??Diabetes Care 2008:31(8):7547-4863. Specimen Anatomical Collection Method Collection Time Receive d Time (Source) Location / / Volume Laterality Blood 01/29/2022 8:07 AM 8:13 EDT AM EDT Resulting Agency Comment Spec In Lab Anna Mullen MD CHEMISTRY ORDERABLES Performing Organization Address City/State/[place] [address] documented in this encounter Visit Diagnoses Diagnosis Preventative health care Routine general medical examination at a health care facility Hypothyroidism, unspecified type documented in this encounter Care Teams Commercial Lending Relationship Manager Relationship Specialty Start Date End Date Anna Mullen MD PCP - General 12/03/10 [address] [place] [address] documented as of this encounter
--- OUTSIDE RECORDS SUMMARY | 2022-03-13 18:23 | XMS_ITS | Encounter Summary ---
:1965 Author Organization [facility] [address] Care Team Providers Name Role Phone Anna Mullen MD Primary Care Provider Reason for Visit Reason Comments Medication Refill Encounter Details Date Type Department Care Team Description 11/30/2021 Refill Solid Organ Transplant Eriberto Melgar H/O pancreas transplant; [place] [facility] [place] Arlyn Prophylactic immunotherapy [place] [address] TRANSPLANT SURGERY [phone] [place], [place] [address] (Wo rk) Social History Tobacco Use Types Packs/Day Years [...] as of this encounter Visit Diagnoses Diagnosis H/O pancreas transplant 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 Prophylactic immunotherapy Need for prophylactic immunotherapy documented in this encounter Care Teams Kst Operator Relationship Specialty Start Date End Date Anna Mullen MD PCP - General 12/03/10 [address] [place], [place] [id number] documented as of this encounter
--- OUTSIDE RECORDS SUMMARY | 2022-03-13 18:23 | XMS_ITS | Encounter Summary ---
:1965 Author Organization [facility] [address] Care Team Providers Name Role Phone Anna Mullen MD Primary Care Provider Reason for Referral Diagnostic Test (Routine) - New Request Specialty Diagnoses / Procedures Referred By Contact Refer red To Contact Cardiology Diagnoses SOB (shortness of breath) Mauricio Villagran MD [facility] Non-Inv Card Lab Procedures Echocardiogram Transthoracic([facility] or [facility]) [facility] [place] [address] [place] [address] Referral ID Status Reason Start Expiration Visits Visits Date Date Requested Authorized [id number] New Request Specialty 08/07/2021 08/07/2022 1 1 Service Requested Encounter Details Date Type Department Care Team Description 08/07/2021 Orders Only Pulmonology at [facility] Mauricio Villagran MD SOB (shortness of [facility]) (Primary Dx) [place] [address] Pulmonary Medicine [phone] [place], [place] [address] Social History Tobacco Use Types Packs/Day Years Used Date Never Smoker Smokeless Tobacco: Never Used Alcohol Use Standard Drinks/Week Comments No 0 (1 standard drink = 0.6 oz pure alcoho l) history of abuse, stopped 1996 Sex Assigned at Date Recorded Male 05/29/2021 11:28 PM EDT documented as of this encounter Plan of Treatment Scheduled Orders Name Type Priority Associated Order Schedule Diagnoses Echocardiogram Echocardiography Routine SOB (shortness of Expe cted: Transthoracic([facility] or breath) 2020 NL) (Approximate), Expires: 02/05/2023 documented as of this encounter Visit Diagnoses Diagnosis SOB (shortness of breath) - Primary Shortness of breath documented in this encounter Care Teams Electric Transfer Operator Relationship Specialty Start Date End Date Anna Mullen MD PCP - General 12/03/10 [address] [place] [address] documented as of this encounter
--- OUTSIDE RECORDS SUMMARY | 2022-03-13 18:23 | XMS_ITS | Encounter Summary ---
:1965 Author Organization [facility] [place] [address] Care Team Providers Name Role Phone Anna Mullen MD Primary Care Provider Encounter Details Date Type Department Care Team Description 12/12/2021 Laboratory Lab 3L Kostas H/O pancreas tr ansplant; Appointment [facility] care home current use of immunosuppressive drug; [place] [address] Social History Tobacco Use Types Packs/Day Years Used Date Never Smoker Smokeless Tobacco: Never Used Alcohol Use Standard Drinks/Week Comments No 0 (1 standard drink = 0.6 oz pure alcoho l) history of abuse, stopped 1996 Sex Assigned at Date Recorded Male 05/29/2021 11:28 PM EDT documented as of this encounter Plan of Treatment Not on filedocumented as of this encounter Procedures Procedure Name Priority Date/Time Associated Diagnosis Comme nts HC BK VIRUS QUANT Routine 12/12/2021 9:08 H/O pancreas t ransplant Results for this PCR,PLASMA AM EDT rn long term care current use of pro cedure are in immunosuppressiv e drug the results Vitamin D deficiency section . HEMOGRAM Routine 12/12/2021 9:08 H/O pancreas tra nsplant Results for this AM EDT rn long term care current use of pro cedure are in immunosuppressiv e drug the results Vitamin D deficiency section . DIFFERENTIAL, Routine 12/12/2021 9:08 H/O pancreas tra nsplant Results for this AUTOMATED AM EDT rn long term care current use of pro cedure are in immunosuppressiv e drug the results Vitamin D deficiency section . HC VENIPUNCTURE Routine 12/12/2021 9:08 H/O pancreas tra nsplant Results for this AM EDT care home current use of pro cedure are in immunosuppressiv e drug the results Vitamin D deficiency section . HC C PEPTIDE Routine 12/12/2021 9:08 H/O pancreas tra nsplant Results for this AM EDT rn long term care current use of pro cedure are in immunosuppressiv e drug the results Vitamin D deficiency section . HC RETIC,AUTO Routine 12/12/2021 9:08 H/O pancreas tra nsplant Results for this INCLUDES RETHE & IRF AM EDT rn long term care current us e of procedure are in immunosuppressiv e drug the results Vitamin D deficiency section . HC CBC,PLT & AUTO Routine 12/12/2021 9:08 H/O pancreas t ransplant DIFF AM EDT care home current use of immunosuppressiv e drug Vitamin D deficiency HC URIC ACID, SERUM Routine 12/12/2021 9:08 H/O pancreas transplant Results for this AM EDT care home current use of pro cedure are in immunosuppressiv e drug the results Vitamin D deficiency section . HC PHOSPHORUS, SERUM Routine 12/12/2021 9:08 H/O pancrea s transplant Results for this AM EDT care home current use of pro cedure are in immunosuppressiv e drug the results Vitamin D deficiency section . HC MAGNESIUM, SERUM Routine 12/12/2021 9:08 H/O pancreas transplant Results for this AM EDT rn long term care current use of pro cedure are in immunosuppressiv e drug the results Vitamin D deficiency section . HC LIPASE Routine 12/12/2021 9:08 H/O pancreas tra nsplant Results for this AM EDT care home current use of pro cedure are in immunosuppressiv e drug the results Vitamin D deficiency section . HC HEMOGLOBIN A1C Routine 12/12/2021 9:08 H/O pancreas t ransplant Results for this AM EDT care home current use of pro cedure are in immunosuppressiv e drug the results Vitamin D deficiency section . HC CHOLESTEROL Routine 12/12/2021 9:08 H/O pancreas tra nsplant Results for this AM EDT rn long term care current use of pro cedure are in immunosuppressiv e drug the results Vitamin D deficiency section . HC AMYLASE Routine 12/12/2021 9:08 H/O pancreas tra nsplant Results for this AM EDT care home current use of pro cedure are in immunosuppressiv e drug the results Vitamin D deficiency section . COMPREHENSIVE Routine 12/12/2021 9:08 H/O pancreas tra nsplant Results for this METABOLIC PANEL AM EDT rn long term care current use of procedure are in (NON-FASTING) immunosuppressiv e drug the results Vitamin D deficiency section . URINALYSIS WITH Routine 12/12/2021 9:03 H/O pancreas tra nsplant Results for this REFLEX CULTURE AM EDT rn long term care current use of p rocedure are in immunosuppressiv e drug the results Vitamin D deficiency section . documented in this encounter Results (ABNORMAL) Differential, Automated (12/12/2021 9:08 AM EDT) [facility] Method Time Signature Neutrophils % 43.9 % [facility] Neutr Abs (ANC) 3.28 1.70 - [facility] 6.10 [facility] x10(3)/[facility] LABORATORY Lymphocytes % 43.6 % [facility] Lymphocytes Abs 3.3 (H) 0.9 - 3.2 [facility] x10(3)/[facility] LABORATORY Monocytes % 7.8 % [facility] Monocyte Abs 0.6 0.3 - 0.9 [facility] x10(3)/[facility] LABORATORY Eosinophils % 3.1 % [facility] Eosinophils Abs 0.2 0.0 - 0.4 [facility] x10(3)/[facility] LABORATORY Basophils % 1.1 % [facility] Basophils Abs 0.1 0.0 - 0.1 [facility] x10(3)/[facility] LABORATORY Immature Gran % 0.50 % [facility] Comment: Immature granulocytes(IG's)percentage an d absolute count will include metamyelocytes, myelocytes, and promyelo cytes. Blood smears from CBCs yielding IG's will be scanned manually for concor dance. If this scan disagrees with the automated IG or if promyelocytes are not ed, a manual differential will be performed. Kym Gran Abs 0.04 0.00 - 0.04 x10(3)/[facility] MAR Y [facility] Specimen Anatomical Collection Method Collection Time Receive d Time (Source) Location / / Volume Laterality Blood 12/12/2021 9:08 AM 2 9:28 EDT AM EDT Resulting Agency Comment Spec In Lab Eriberto Melgar MD HEMATOLOGY ORDERABLES Performing Organization Address City/State/[place] [address] Hemogram (12/12/2021 9:08 AM EDT) athologist Signature WBC 7.5 4.0 - 9.5 [facility] x10(3)/[facility] LABORATORY RBC 4.84 4.58 - [facility] 5.54 [facility] x10(6)/[facility] LABORATORY Hemoglobin 14.9 13.7 - [facility] 16.5 g/dL [facility] Hematocrit 43.8 40.5 - [facility] 48.5 % [facility] MCV 90.5 82.9 - [facility] 93.1 [facility] LABORATORY MCH 30.8 27.5 - [facility] 32.1 pg [facility] MCHC 34.0 32.0 - [facility] 35.7 g/dL [facility] Platelets 215 145 - 357 [facility] x10(3)/[facility] LABORATORY RDWSD 41.6 36.0 - [facility] 45.0 [facility] LABORATORY RDWCV 12.7 11.4 - [facility] 13.8 % [facility] LABOR[facility]ORY MPV 11.2 7.6 - 12.9 [facility] LABORATORY nRBC % Auto 0.0 % [facility] nRBC Abs Auto 0.000 0.000 - [facility] 0.000 [facility] x10(3)/[facility] LABORATORY Specimen Anatomical Collection Method Collection Time Receive d Time (Source) Location / / Volume Laterality Blood 12/12/2021 9:08 AM 2 9:28 EDT AM EDT Resulting Agency Comment Spec In Lab Eriberto Melgar MD HEMATOLOGY ORDERABLES Performing Organization Address City/[facility]/ZIP Code Phon e Number [address] Reticulocyte Count (12/12/2021 9:08 AM EDT) P athologist Signature Retic Ct % 1.5 0.7 - 2.6 [facility]OR[facility] Retic Ct Abs 0.070 0.030 - [facility] 0.120 [facility] x10(6)/[facility] LABORATORY Immature Retic% 9.8 0.0 - 15.6 [facility] % [facility] Reticulated Hgb 36.0 31.3 - [facility] 40.2 [facility] LABORATORY Specimen Anatomical Collection Method Collection Time Receive d Time (Source) Location / / Volume Laterality Blood 12/12/2021 9:08 AM 2 9:28 EDT AM EDT Resulting Agency Comment Spec In Lab Eriberto Melgar MD HEMATOLOGY ORDERABLES Performing Organization Address City/[facility]/ZIP Code Phon e Number [address] (ABNORMAL) Magnesium (12/12/2021 9:08 AM EDT) P athologist Signature Magnesium 0.68 (L) 0.69 - 1.07 [facility] mmol/L [facility]ORY Specimen Anatomical Collection Method Collection Time Receive d Time (Source) Location / / Volume Laterality Blood 12/12/2021 9:08 AM 2 9:28 EDT AM EDT Resulting Agency Comment Spec In Lab Eriberto Melgar MD CHEMISTRY ORDERABLES Performing Organization Address City/[facility]/ZIP Code Phon e Number [address] Phosphorus (12/12/2021 9:08 AM EDT) athologist Signature Phosphorus 3.0 2.5 - 4.5 [facility] mg/dL [facility] Specimen Anatomical Collection Method Collection Time Receive d Time (Source) Location / / Volume Laterality Blood 12/12/2021 9:08 AM 2 9:28 EDT AM EDT Resulting Agency Comment Spec In Lab Eriberto Melgar MD CHEMISTRY ORDERABLES Performing Organization Address City/State/ZIP Code Phon e Number [address] Cholesterol, total (12/12/2021 9:08 AM EDT) athologist Signature Chol, Total 117 mg/dL [facility] Comment: Lower Risk: <200 mg/dL Average Risk: 200-239 mg/dL Higher Risk: >as=170 mg/dL Lipid Interpretation See Note [facility] Comment: Lipid management should be guided by a p atient? s ASCVD risk, goals and preferences. ACC/AHA Guidelines recommend high intens ity statin if clinical ASCVD or LDL greater than or equal to 190 mg/dL. [email or web address] Adults aged 40-75 with LDL 70-189 mg/dL should have their 10 year ASCVD risk estimated with the ACC/AHA ASCVD risk es timator http://tools.acc.org/LIZVF-Uudo-Qajhkdzo r/ Statin should be discussed if risk [...] Melgar MD CHEMISTRY ORDERABLES Performing Organization Address City/[facility]/ZIP Code Phon e Number [address] Uric acid (12/12/2021 9:08 AM EDT) athologist Signature Uric Acid 6.1 3.5 - 8.5 [facility] mg/dL [facility]ORY Specimen Anatomical Collection Method Collection Time Receive d Time (Source) Location / / Volume Laterality Blood 12/12/2021 9:08 AM 2 9:28 EDT AM EDT Resulting Agency Comment Spec In Lab Eriberto Melgar MD CHEMISTRY ORDERABLES Performing Organization Address City/[facility]/ZIP Code Phon e Number [address] Amylase (12/12/2021 9:08 AM EDT) P athologist Signature Amylase 51 28 - 100 [facility] LABORATORY Specimen Anatomical Collection Method Collection Time Receive d Time (Source) Location / / Volume Laterality Blood 12/12/2021 9:08 AM 2 9:28 EDT AM EDT Resulting Agency Comment Spec In Lab Eriberto Melgar MD CHEMISTRY ORDERABLES Performing Organization Address City/[facility]/[place] [address] Lipase (12/12/2021 9:08 AM EDT) P athologist Signature Lipase 22 0 - 60 [facility] LABORATORY Specimen Anatomical Collection Method Collection Time Receive d Time (Source) Location / / Volume Laterality Blood 12/12/2021 9:08 AM 2 9:28 EDT AM EDT Resulting Agency Comment Spec In Lab Eriberto Melgar MD CHEMISTRY ORDERABLES Performing Organization Address City/[facility]/ZIP [facility] [place] [address] Comprehensive metabolic panel (non-fasting) (12/12/2021 9:08 AM EDT) P athologist Signature Glucose Lvl 103 65 - 199 [facility] mg/dL [facility] Comment: Diabetes: >=200 mg/dL plus symp toms BUN 12 10 - 20 mg/dL [facility] Creatinine 0.97 0.80 - 1.50 mg/dL [facility] Sodium 137 135 - 145 mmol/L [facility] Potassium 4.2 3.5 - 5.0 mmol/L [facility] Comment: Please note: ??Patients with WBC >100,00 0 may have falsely elevated Potassium levels. ??For accurate Potassium quantif ication in these patients send serum separator tube (gold top) for subsequent determinations. ??Contact the Clinical Chemistry Laboratory if there are any qu estions. Chloride 101 98 - 107 mmol/L [facility] CO2 27 22 - 31 mmol/L [facility] Anion Gap 9 5 - 15 mmol/L [facility] Calcium 9.3 8.5 - 10.5 mg/dL [facility] Total Protein 7.5 6.1 - 8.0 g/dL [facility] Albumin 4.7 3.2 - 5.2 g/dL [facility] AST 22 0 - 39 unit/L [facility] ALT 20 0 - 55 unit/L [facility] Alk Phos 128 40 - 130 unit/L [facility] Total Bilirubin 0.6 0.2 - 1.3 mg/dL [facility] Estimated GFR 88 >=60 mL/min/1.73 m?? [facility] Comment: This patient? s estimated [...] / Volume Laterality Blood 12/12/2021 9:08 AM 04/14/202 2 9:28 EDT AM EDT Resulting Agency Comment Spec In Lab Eriberto Melgar MD CHEMISTRY ORDERABLES Performing Organization Address City/State/[place] [address] Hemoglobin A1c (12/12/2021 9:08 AM EDT) P athologist Signature Hemoglobin A1C 5.1 4.3 - 5.6 [facility] Comment: Reference Range: 4.3 - [...] Mellitus, Diabetes Care 2013; 36: Suppl. 1, S67-69 Est Avg Gluc 99 mg/dL [facility] Comment: eAG equivalents for HbA1c percentages: HbA1c(%) ?eAG(mg/dL) 6.0 ?126 6.5 ?140 7.0 ?154 7.5 ?169 8.0 ?183 8.5 ?197 9.0 ?212 9.5 ?226 10.0 ? 240 Limitations: The eAG calculation has not been validated on women, individuals below 18 years old and above 70 years old, and individuals with hemoglobinopathies. Additional resources are available on ADA website. Edinson GRISSOM, Nathaniel Adame, Ari R, et al. ??Tr anslating the A1C assay into estimated average glucose values. ??Diabetes Care 2008:31(8):6468-8877. Specimen Anatomical Collection Method Collection Time Receive d Time (Source) Location / / Volume Laterality Blood 12/12/2021 9:08 AM 2 9:28 EDT AM EDT Resulting Agency Comment Spec In Lab Eriberto Melgar MD CHEMISTRY ORDERABLES Performing Organization Address City/[facility]/ZIP Code Phon e Number [address] C-peptide (12/12/2021 9:08 AM EDT) P athologist Signature C-Peptide 2.7 1.1 - 4.4 [facility] ng/mL [facility] Comment: As of December 05, 2020, C-Peptide testing h as moved from the [employer] to the [facility]. Please note the updated reference intervals. Specimen Anatomical Collection Method Collection Time Receive d Time (Source) Location / / Volume Laterality Blood 12/12/2021 9:08 AM 2 9:28 EDT AM EDT Resulting Agency Comment Spec In Lab Eriberto Melgar MD CHEMISTRY ORDERABLES Performing Organization Address City/[facility]/ZIP Code Phon e Number [address] BKV Quant Blood (12/12/2021 9:08 AM EDT) Patholo gist Method Time Signature BKV Blood Not Detected Not Detected [place] Result IU/mL [facility] Comment: Indication for Study: Monitoring [...] Melgar MD IMMUNOLOGY ORDERABLES Performing Organization Address City/[facility]/[place] [address] Tacrolimus level (12/12/2021 9:08 AM EDT) P athologist Signature Tacrolimus Lvl 11.3 ng/mL [facility] Comment: Trough therapeutic range is [...] Melgar MD CHEMISTRY ORDERABLES Performing Organization Address City/[facility]/ZIP Code Phon e Number [address] Urinalysis with reflex Culture (12/12/2021 9:03 AM EDT) Patholo gist Method Time Signature Glucose UA Negative Negative [facility] mg/dL [facility] Protein UA Negative Negative [facility] mg/dL [facility] Bilirubin UA Negative Negative [facility] mg/dL [facility] Comment: Clinical correlation required for positi ve Urine Bilirubin results as false positive may occur with some drugs and d rug related products. If a false positive is suspected a serum total bili sinha should be considered if clinically indicated. Urobilinogen UA Normal Normal mg/dL [facility] pH UA 7.0 5.0 - 8.0 [facility] Blood UA Negative Negative mg/dL [facility] Ketones UA Negative Negative mg/dL [facility] Nitrite UA Negative Negative [facility] Leukocytes UA Negative Negative [facility] LABORATORY Appearance UA Clear Clear [facility] Spec [place] UA 1.008 1.005 - 1.030 [facility] Color UA Yellow Yellow [facility] Culture Reflexed No [facility] Specimen Anatomical Collection Method Collection Time Receive d Time (Source) Location / / Volume Laterality Clean Catch 12/12/2021 9:03 AM 9:36 Urine EDT AM EDT Resulting Agency Comment Spec In Lab Eriberto Melgar MD URINE ORDERABLES Performing Organization Address City/State/ZIP Code Phon e Number [place] [id number] HOS[address] documented in this encounter Visit Diagnoses Diagnosis H/O pancreas transplant 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 care home current use of immunosuppressi ve drug Vitamin D deficiency Unspecified vitamin D deficiency documented in this encounter Care Teams Baker Biscuit Relationship Specialty Start Date End Date Anna Mullen MD PCP - General 12/03/10 [address] [place] [address] documented as of this encounter
--- OUTSIDE RECORDS SUMMARY | 2022-03-13 18:23 | XMS_ITS | Encounter Summary ---
:1965 Author Organization [facility] [place] [address] Care Team Providers Name Role Phone Anna Mullen MD Primary Care Provider Encounter Details Date Type Department Care Team Description 10/31/2021 Telephone Solid Organ [place]plant [place] [address] Social History Tobacco Use Types Packs/Day Years Used Date Never Smoker Smokeless Tobacco: Never Used Alcohol Use Standard Drinks/Week Comments No 0 (1 standard drink = 0.6 oz pure alcoho l) history of abuse, stopped 1996 Sex Assigned at Date Recorded Male 05/29/2021 11:28 PM EDT documented as of this encounter Miscellaneous Notes Telephone Encounter - Zoe Rosario RN - 10/31/2021 2:59 PM EST I confirmed with Brant it is OK for him to take flonase. I also asked about current symptoms. He reports head congestion, sore throat and post nasal drip. All COVID testing so far has been negative so far (still waiting for PCR results) If he does test positive he will call back immediately for further recommendations. Telephone Encounter - Zoe Rosario RN - 10/31/2021 2:59 PM EST ----- Message from Renea Hernandez sent at 10/31/2021 2:54 PM EST ----- Regarding: please call Contact: He has been prescribed Flonase and wants to know if it's ok for him to use. documented in this encounter Plan of Treatment Not on filedocumented as of this encounter Visit Diagnoses Not on filedocumented in this encounter Care Teams Counselor At Law Relationship Specialty Start Date End Date Anna Mullen MD PCP - General 12/03/10 [address] [place] [address] documented as of this encounter
--- OUTSIDE RECORDS SUMMARY | 2022-03-13 18:23 | XMS_ITS | Encounter Summary ---
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 HC BK VIRUS QUANT Routine 01/29/2022 8:07 H/O pancreas t ransplant Results for this PCR,PLASMA AM EDT prison current use of pro cedure are in immunosuppressiv e drug the results Vitamin D deficiency section . PSA SCREEN Routine 01/29/2022 8:07 Results for this AM EDT procedure are i n the results section. HEMOGRAM Routine 01/29/2022 8:07 Pancreas replaced by Resu lts for this AM EDT transplant procedure are in Immunosuppression the result s section. DIFFERENTIAL, Routine 01/29/2022 8:07 Pancreas replaced by Res ults for this AUTOMATED AM EDT transplant procedure are in Immunosuppression the result s section. HC FK-506 Routine 01/29/2022 8:07 H/O pancreas tra nsplant Results for this (TACROLIMUS) AM EDT prison current use of pro cedure are in immunosuppressiv e drug the results Vitamin D deficiency section . HC RETIC,AUTO Routine 01/29/2022 8:07 Pancreas replaced by Res ults for this INCLUDES RETHE & IRF AM EDT transplant procedure are in Immunosuppression the result s section. HC CBC,PLT & AUTO Routine 01/29/2022 8:07 Pancreas replaced by DIFF AM EDT transplant Immunosuppression HC URIC ACID, SERUM Routine 01/29/2022 8:07 Pancreas replaced by Results for this AM EDT transplant procedure are in Immunosuppression the result s section. TSH Routine 01/29/2022 8:07 Results for this AM EDT procedure are i n the results section. T4, FREE Routine 01/29/2022 8:07 Results for this AM EDT procedure are i n the results section. HC PHOSPHORUS, SERUM Routine 01/29/2022 8:07 Pancreas replaced by Results for this AM EDT transplant procedure are in Immunosuppression the result s section. HC MAGNESIUM, SERUM Routine 01/29/2022 8:07 Pancreas replaced by Results for this AM EDT transplant procedure are in Immunosuppression the result s section. HC LIPASE Routine 01/29/2022 8:07 Pancreas replaced by Resu lts for this AM EDT transplant procedure are in Immunosuppression the result s section. HC HEMOGLOBIN A1C Routine 01/29/2022 8:07 Preventative h ealth care Results for this AM EDT Hypothyroidism, procedure ar e in unspecified type the results section. CHOLESTEROL, TOTAL Routine 01/29/2022 8:07 Pancreas replaced b y Results for this AM EDT transplant procedure are in Immunosuppression the result s section. HC AMYLASE Routine 01/29/2022 8:07 Pancreas replaced by Resu lts for this AM EDT transplant procedure are in Immunosuppression the result s section. LIPID PANEL (REFLEX Routine 01/29/2022 8:07 Resul ts for this DIRECT LDL) AM EDT procedure are i n the results section. HC VENIPUNCTURE Routine 01/29/2022 8:07 Pancreas replaced by R esults for this AM EDT transplant procedure are in Immunosuppression the result s section. documented in this encounter Results Urinalysis with reflex Culture (01/29/2022 8:21 AM EDT) [facility] gist Method Time Signature Glucose UA Negative Negative [facility] mg/dL [facility] Protein UA Negative Negative [facility] mg/dL [facility] Bilirubin UA Negative Negative [facility] mg/dL [facility] Comment: Clinical correlation required for positi ve Urine Bilirubin results as false positive may occur with some drugs and d rug related products. If a false positive is suspected a serum total bili sinha should be considered if clinically indicated. Urobilinogen UA Normal Normal mg/dL [facility] pH UA 6.5 5.0 - 8.0 [facility] Blood UA Negative Negative mg/dL [facility] Ketones UA Negative Negative mg/dL [facility] Nitrite UA Negative Negative [facility] Leukocytes UA Negative Negative [facility] LABOR[facility]ORY Appearance UA Clear Clear [facility] Spec [place] UA 1.008 1.005 - 1.030 [facility] Color UA Yellow Yellow [facility] Culture Reflexed No [facility] Specimen Anatomical Collection Method Collection Time Receive d Time (Source) Location / / Volume Laterality Clean Catch 01/29/2022 8:21 AM 8:42 Urine EDT AM EDT Resulting Agency Comment Spec In Lab Eriberto Melgar MD URINE ORDERABLES Performing Organization Address City/State/[place] [address] (ABNORMAL) T4, free (01/29/2022 8:07 AM EDT) P athologist Signature Free T4 1.78 (H) 0.93 - 1.70 [facility] ng/dL [facility] Comment: Reference Interval (ng/dL): Females: ??First Trimester: 0.97-1.68 ??Second Trimester: 0.77-1.51 ??Third Trimester: 0.77-1.49 Specimen Anatomical Collection Method Collection Time Receive d Time (Source) Location / / Volume Laterality Blood Venous Draw / 01/29/2022 8:07 AM 01/30/20 8:17 Unknown EDT AM EDT Resulting Agency Comment Spec In Lab Anna Mullen MD CHEMISTRY ORDERABLES Performing Organization Address City/State/[place] [address] Lipid Panel (Reflex Direct LDL) (01/29/2022 8:07 AM EDT) athologist Signature Chol, Total 114 mg/dL [facility] Comment: Lower Risk: <200 mg/dL Average Risk: 200-239 mg/dL Higher Risk: >bh=344 mg/dL Triglycerides 127 mg/dL [facility] Comment: Average Risk/Lower Risk: <150 mg/dL Borderline High Risk: 150-199 mg/dL High Risk: 200-499 mg/dL Very High Risk: >pn=589 mg/dL HDL 39 mg/dL [facility] Comment: Males: ?? Higher Risk: <40 mg/dL Females: ?? Higher Risk: <50 mg/dL LDL Cholesterol 50 mg/dL [facility] Comment: Lowest Risk: <100 mg/dL Lower Risk: 100-129 mg/dL Borderline High Risk: 130-159 mg/dL High Risk: 160-189 mg/dL Very High Risk: >jg=700 mg/dL Chol/HDL Ratio 2.9 ratio [facility] Lipid Interpretation See Note [facility] Comment: Lipid management should be guided by a p atient? s ASCVD risk, goals and preferences. ACC/AHA Guidelines recommend high intens ity statin if clinical ASCVD or LDL greater than or equal to 190 mg/dL. http://Car[employer] [email or web address]/YND-ZME-Kmpzndhod Adults aged 40-75 with LDL 70-189 mg/dL should have their 10 year ASCVD risk estimated with the ACC/AHA ASCVD risk es timator http://tools.acc.org/QDDMG-Vpqe-Lumrxfzu r/ Statin should be discussed if risk [...] (Source) Location / / Volume Laterality Blood Venous Draw / 01/29/2022 8:07 AM 01/30/20 8:14 Unknown EDT AM EDT Resulting Agency Comment Spec In Lab Anna Mullen MD CHEMISTRY ORDERABLES Performing Organization Address City/[facility]/ZIP Code [place] [address] PSA Screen (01/29/2022 8:07 AM EDT) athologist Signature PSA Total 0.37 0.00 - 4.00 [facility] ng/mL [facility] Comment: PLEASE NOTE: The above reference interva l is intended for healthy males with an intact prostate. Values within this refe rence interval may indicate recurrence in men who have undergone radical prosta tectomy. Specimen Anatomical Collection Method Collection Time Receive d Time (Source) Location / / Volume Laterality Blood Venous Draw / 01/29/2022 8:07 AM 01/30/20 8:14 Unknown EDT AM EDT Resulting Agency Comment Spec In Lab Anna Mullen MD CHEMISTRY ORDERABLES Performing Organization Address City/[facility] [place] [address] (ABNORMAL) TSH (01/29/2022 8:07 AM EDT) athologist Signature TSH 0.25 (L) 0.27 - 4.20 [facility] mcIU/mL [facility] Comment: Reference Interval (mcIU/mL): Females: ??First Trimester: 0.23-3.88 ??Second Trimester: 0.22-3.90 ??Third Trimester: 0.44-4.66 Specimen Anatomical Collection Method Collection Time Receive d Time (Source) Location / / Volume Laterality Blood Venous Draw / 01/29/2022 8:07 AM 01/30/20 8:14 Unknown EDT AM EDT Resulting Agency Comment Spec In Lab Anna Mullen MD CHEMISTRY ORDERABLES Performing Organization Address City/State/[place] [address] Differential, Automated (01/29/2022 8:07 AM EDT) P athologist Signature Neutrophils % 41.4 % [facility] Neutr Abs (ANC) 2.23 1.70 - [facility] 6.10 [facility] x10(3)/[facility] LABORATORY Lymphocytes % 45.0 % [facility] Lymphocytes Abs 2.4 0.9 - 3.2 [facility] x10(3)/[facility] LABORATORY Monocytes % 9.1 % [facility] Monocyte Abs 0.5 0.3 - 0.9 [facility] x10(3)/[facility] LABORATORY Eosinophils % 3.2 % [facility] Eosinophils Abs 0.2 0.0 - 0.4 [facility] x10(3)/[facility] LABORATORY Basophils % 0.9 % [facility] Basophils Abs 0.0 0.0 - 0.1 [facility] x10(3)/[facility] LABORATORY Immature Gran % 0.40 % [facility] Comment: Immature granulocytes(IG's)percentage an d absolute count will include metamyelocytes, myelocytes, and promyelo cytes. Blood smears from CBCs yielding IG's will be scanned manually for concor dance. If this scan disagrees with the automated IG or if promyelocytes are not ed, a manual differential will be performed. Kym Gran Abs 0.02 0.00 - 0.04 x10(3)/[facility] MAR Y [facility] LAB[facility]ORY Specimen Anatomical Collection Method Collection Time Receive d Time (Source) Location / / Volume Laterality Blood 01/29/2022 8:07 AM 2 8:13 EDT AM EDT Resulting Agency Comment Spec In Lab Eriberto Melgar MD HEMATOLOGY ORDERABLES Performing Organization Address City/State/[place] [address] (ABNORMAL) Hemogram (01/29/2022 8:07 AM EDT) Analysis Performed At Patho logist Time Signature WBC 5.4 4.0 - 9.5 [facility] x10(3)/[facility] LABORATORY RBC 4.33 (L) 4.58 - [facility] 5.54 [facility] x10(6)/[facility] LABORATORY Hemoglobin 13.4 (L) 13.7 - [facility] 16.5 g/dL [facility] Hematocrit 39.0 (L) 40.5 - [facility] 48.5 % [facility] MCV 90.1 82.9 - [facility] 93.1 [facility] LAB[facility]ORY MCH 30.9 27.5 - [facility] 32.1 pg [facility] MCHC 34.4 32.0 - [facility] 35.7 g/dL [facility] Platelets 202 145 - 357 [facility] x10(3)/[facility] LABORATORY RDWSD 39.8 36.0 - [facility] 45.0 [facility] LABORATORY RDWCV 12.1 11.4 - [facility] 13.8 % [facility] MPV 10.6 7.6 - 12.9 [facility] LABORATORY nRBC % Auto 0.0 % [facility] nRBC Abs Auto 0.000 0.000 - [facility] 0.000 [facility] x10(3)/[facility] LABORATORY Specimen Anatomical Collection Method Collection Time Receive d Time (Source) Location / / Volume Laterality Blood 01/29/2022 8:07 AM 2 8:13 EDT AM EDT Resulting Agency Comment Spec In Lab Eriberto Melgar MD HEMATOLOGY ORDERABLES Performing Organization Address City/State/ZIP Code [place] [address] BKV Quant Blood (01/29/2022 8:07 AM EDT) Patholo gist Method Time Signature BKV Blood Not Detected Not Detected [place] Result IU/mL [facility] Comment: Indication for Study: Monitoring BKV DNA Analysis: The darin BKV test is an in vi tro nucleic acid amplification tests using real-time polymerase chain reactio n (PCR) assay for the quantitative measurement of BK virus (BKV) DNA in hum an EDTA plasma. Sample: EDTA plasma Method: darin BKV test used with the 680 0 platform (PenPath) Linear Range: 21.5 - 1.0 x 10^8 [...] Melgar MD IMMUNOLOGY ORDERABLES Performing Organization Address City/[facility]/ZIP [place] [address] Tacrolimus level (01/29/2022 8:07 AM EDT) P athologist Signature Tacrolimus Lvl 9.4 ng/mL [facility] Comment: Trough therapeutic range is [...] Volume Laterality Blood 01/29/2022 8:07 AM 2 8:14 EDT AM EDT Resulting Agency Comment Spec In Lab Eriberto Melgar MD CHEMISTRY ORDERABLES Performing Organization Address City/State/[place] [address] Hemoglobin A1c (01/29/2022 8:07 AM EDT) athologist Signature Hemoglobin A1C 5.2 4.3 - 5.6 [facility] Comment: Reference Range: 4.3 - 5.6% [...] Mellitus, Diabetes Care 2013; 36: Suppl. 1, M67-68 Est Avg Gluc 103 mg/dL [facility] Comment: eAG equivalents for HbA1c percentages: HbA1c(%) ?eAG(mg/dL) 6.0 ?126 6.5 ?140 7.0 ?154 7.5 ?169 8.0 ?183 8.5 ?197 9.0 ?212 9.5 ?226 10.0 ? 240 Limitations: The eAG calculation has not been validated on women, individuals below 18 years old and above 70 years old, and individuals with hemoglobinopathies. Additional resources are available on [facility] ADA website. Edinson GRISSOM, Nathaniel J, Ari R, et al. ??Tr anslating the A1C assay into estimated average glucose values. ??Diabetes Care 2008:31(8):9752-1498. Specimen Anatomical Collection Method Collection Time Receive d Time (Source) Location / / Volume Laterality Blood 01/29/2022 8:07 AM 2 8:13 EDT AM EDT Resulting Agency Comment Spec In Lab Anna Mullen MD CHEMISTRY ORDERABLES Performing Organization Address City/[facility]/ZIP Code [place] [address] Reticulocyte Count (01/29/2022 8:07 AM EDT) athologist Signature Retic Ct % 1.4 0.7 - 2.6 [facility]OR[facility] Retic Ct Abs 0.060 0.030 - [facility] 0.120 [facility] x10(6)/[facility] LABORATORY Immature Retic% 4.6 0.0 - 15.6 [facility] Reticulated Hgb 34.7 31.3 - [facility] 40.2 pg [facility] Specimen Anatomical Collection Method Collection Time Receive d Time (Source) Location / / Volume Laterality Blood 01/29/2022 8:07 AM 2 8:13 EDT AM EDT Resulting Agency Comment Spec In Lab Eriberto Melgar MD HEMATOLOGY ORDERABLES Performing Organization Address City/[facility]/ZIP Code [place] [address] (ABNORMAL) Magnesium (01/29/2022 8:07 AM EDT) athologist Signature Magnesium 0.66 (L) 0.69 - 1.07 [facility] mmol/L [facility] Specimen Anatomical Collection Method Collection Time Receive d Time (Source) Location / / Volume Laterality Blood 01/29/2022 8:07 AM 2 8:14 EDT AM EDT Resulting Agency Comment Spec In Lab Eriberto Melgar MD CHEMISTRY ORDERABLES Performing Organization Address City/[facility]/ZIP Code [place] [address] (ABNORMAL) Phosphorus (01/29/2022 8:07 AM EDT) athologist Signature Phosphorus 2.2 (L) 2.5 - 4.5 [facility] mg/dL [facility] Specimen Anatomical Collection Method Collection Time Receive d Time (Source) Location / / Volume Laterality Blood 01/29/2022 8:07 AM 2 8:14 EDT AM EDT Resulting Agency Comment Spec In Lab Eriberto Melgar MD CHEMISTRY ORDERABLES Performing Organization Address City/[facility]/[place]IP [facility] [place] [address] Cholesterol, total (01/29/2022 8:07 AM EDT) athologist Signature Chol, Total 114 mg/dL [facility] Comment: Lower Risk: <200 mg/dL Average Risk: 200-239 mg/dL Higher Risk: >xy=109 mg/dL Lipid Interpretation See Note [facility] Comment: Lipid management should be guided by a p atient? s ASCVD risk, goals and preferences. ACC/AHA Guidelines recommend high intens ity statin if clinical ASCVD or LDL greater than or equal to 190 mg/dL. http://[employer].com/UHR-LCU-Eqpanvrkg Adults aged 40-75 with LDL 70-189 mg/dL should have their 10 year ASCVD risk estimated with the ACC/AHA ASCVD risk es timator http://tools.acc.org/WYWHR-Fzug-Opwiiprp r/ Statin should be discussed if risk [...] Volume Laterality Blood 01/29/2022 8:07 AM 2 8:14 EDT AM EDT Resulting Agency Comment Spec In Lab Eriberto Melgar MD CHEMISTRY ORDERABLES Performing Organization Address City/State/ZIP Code [place] [address] Uric acid (01/29/2022 8:07 AM EDT) P athologist Signature Uric Acid 6.3 3.5 - 8.5 [place] mg/dL [facility] Specimen Anatomical Collection Method Collection Time Receive d Time (Source) Location / / Volume Laterality Blood 01/29/2022 8:07 AM 2 8:14 EDT AM EDT Resulting Agency Comment Spec In Lab Eriberto Melgar MD CHEMISTRY ORDERABLES Performing Organization Address City/State/ZIP Code Phon e Number [address] Amylase (01/29/2022 8:07 AM EDT) P athologist Signature Amylase 53 28 - 100 [facility] Specimen Anatomical Collection Method Collection Time Receive d Time (Source) Location / / Volume Laterality Blood 01/29/2022 8:07 AM 2 8:14 EDT AM EDT Resulting Agency Comment Spec In Lab Eriberto Melgar MD CHEMISTRY ORDERABLES Performing Organization Address City/State/ZIP Code [place] [address] Lipase (01/29/2022 8:07 AM EDT) P athologist Signature Lipase 23 0 - 60 [facility] LABORATORY Specimen Anatomical Collection Method Collection Time Receive d Time (Source) Location / / Volume Laterality Blood 01/29/2022 8:07 AM 2 8:14 EDT AM EDT Resulting Agency Comment Spec In Lab Eriberto Melgar MD CHEMISTRY ORDERABLES Performing Organization Address City/State/ZIP Code [place] [address] (ABNORMAL) Comprehensive metabolic panel (non-fasting) (01/29/2022 8:07 AM EDT) P athologist Signature Glucose Lvl 102 65 - 199 [place] mg/dL [facility] Comment: Diabetes: >=200 mg/dL plus symp toms BUN 12 10 - 20 mg/dL [facility] Creatinine 0.85 0.80 - 1.50 mg/dL [facility] Sodium 133 (L) 135 - 145 mmol/L [facility] Potassium 4.3 3.5 - 5.0 mmol/L [facility] Comment: Please note: ??Patients with WBC >100,00 0 may have falsely elevated Potassium levels. ??For accurate Potassium quantif ication in these patients send serum separator tube (gold top) for subsequent determinations. ??Contact the Clinical Chemistry Laboratory if there are any qu estions. Chloride 100 98 - 107 mmol/L [facility] CO2 27 22 - 31 mmol/L [facility] Anion Gap 6 5 - 15 mmol/L [facility] Calcium 9.0 8.5 - 10.5 mg/dL [facility] Total Protein 6.7 6.1 - 8.0 g/dL [facility] Albumin 4.3 3.2 - 5.2 g/dL [facility] AST 23 0 - 39 unit/L [facility] ALT 20 0 - 55 unit/L [facility] Alk Phos 102 40 - 130 unit/L [facility] Total Bilirubin 1.5 (H) 0.2 - 1.3 mg/dL [facility] Estimated GFR 99 >=60 mL/min/1.73 m?? [facility] Comment: This patient? s estimated glomerular filtration rate (eGFR) is between 99 mL/min/1.73 m2 (patients with less muscl e mass per kg body weight) and 114 mL/min/1.73 m2 (patients with more muscl e [...] Melgar MD CHEMISTRY ORDERABLES Performing Organization Address City/State/[facility] [place] [address] documented in this encounter Visit Diagnoses Diagnosis 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 Immunosuppression Unspecified disorder of immune mechanism Preventative health care Routine general medical examination at a health care facility Hypothyroidism, unspecified type H/O pancreas transplant 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 prison current use of immunosuppressi ve drug Vitamin D deficiency Unspecified vitamin D deficiency documented in this encounter Care Teams Remnant Sorter Relationship Specialty Start Date End Date Anna Mullen MD PCP - General 12/03/10 [address] [place] [address] documented as of this encounter
--- OUTSIDE RECORDS SUMMARY | 2022-03-13 18:23 | XMS_ITS | Encounter Summary ---
:1965 Author Organization [facility] [place] [address] Care Team Providers Name Role Phone Anna Mullen MD Primary Care Provider Encounter Details Date Type Department Care Team Description 07/12/2021 [place] [facility] [place] of [place] [facility] Persisten t dyspnea [place] [address] Social History Tobacco Use Types Packs/Day Years Used Date Never Smoker Smokeless Tobacco: Never Used Alcohol Use Standard Drinks/Week Comments No 0 (1 standard drink = 0.6 oz pure alcoho l) history of abuse, stopped 1996 Sex Assigned at Date Recorded Male 05/29/2021 11:28 PM EDT documented as of this encounter Medications at Time of Discharge Medication Sig Dispensed Refills Start Date End Date Prograf 1 mg TAKE 2 CAPSULES 90 capsule 9 07/10/2021 CapsuleIndications: 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 losartan (COZAAR) 100 mg TAKE 1 TABLET BY 30 tablet 11 06/17 TabletIndications: MOUTH EVERY NIGHT Aftercare following (REPLACING organ transplant LISINOPRIL) diazePAM (Valium) 5 mg Take 1 tablet by 2 tablet 0 021 Tablet mouth as needed for Anxiety. INSTRUCTIONS: Take 1-2 tablets (5mg - 10mg) by mouth 30 to 60 minutes prior to MRI procedure. rOPINIRole (Requip) 0.25 Take 0.25 mg by 0 mg Tablet mouth daily. hydrALAZINE (Apresoline) TAKE ONE TABLET BY 180 tablet 3 25 mg Tablet MOUTH TWICE A DAY betamethasone 0 07/19/2020 dipropionate (DIPROLENE) 0.05 % Cream HYDROcodone-acetaminophe TAKE 1 TABLET BY 0 07/18 n ([place]) 10-325 mg MOUTH TWICE DAILY Tablet NEEDED FOR PAIN acetaminophen (Tylenol) Take 1,000 mg by 0 500 mg Tablet mouth every 6 hours as needed for Pain. amoxicillin (Amoxil) 500 TAKE 4 CAPSULES BY 0 10/2019 mg Capsule MOUTH 1 HOUR PRIOR TO DENTAL APPOINTMENT OneTouch Ultra Blue Test TEST BLOOD SUGAR 0 03/29 Strip Strip ONCE DAILY verapamil SR (Calan-SR) Take 120 mg by 0 120 mg Tablet Sustained mouth daily. Release gabapentin (Neurontin) Take 300 mg by 0 300 mg Capsule mouth 3 times daily. Takes 1 caps in the morning, 2 caps in the afternoon and 2 caps at night. clopidogrel (PLAVIX) 75 Take 1 tablet by 90 tablet 3 2018 mg Tablet mouth daily. venlafaxine (EFFEXOR-XR) Take 150 mg by 0 150 mg Capsule, Sust. mouth Daily. Release 24 hr venlafaxine XR Take 75 mg by mouth 0 08/13/2019 (EFFEXOR-XR) 75 mg daily. Taking with Capsule, Sust. Release 150 mg to total 225 24 hr mg total atorvastatin (LIPITOR) Take 1 tablet by 90 tablet 2 019 10 mg Tablet mouth daily. valACYclovir (VALTREX) TAKE ONE TABLET BY 30 tablet 3 08/10 500 mg MOUTH THREE TIMES A TabletIndications: DAY 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 levothyroxine Take 150 mcg by 0 (SYNTHROID) 150 mcg mouth daily. Tablet fexofenadine (BECKY) Take 60 mg by mouth 0 60 mg Tablet daily. Magnesium Gluconate Take 1 tablet by 30 tablet 11 11/27/2016 (MAG-G) 27 mg (500 mg) mouth daily. Tablet multivitamin Capsule Take 1 capsule by 0 mouth daily. pantoprazole (PROTONIX) Take 40 mg by mouth 0 40 mg Tablet, Delayed 2 times daily. Release (E.C.) psyllium 3.5 gram Powder Take 1 packet by 30 each 0 09/01 in Packet mouth daily. ondansetron (ZOFRAN) 8 Take 1 tablet by 15 tablet 0 015 mg Tablet mouth every 8 hours as needed for Nausea. sildenafil (VIAGRA) 100 Take 1 tablet by mouth as ne eded for Erectile Dysfunction. 90 day supply 60 tablet 6 09/14/2012 mg tablet Dx code :250.60 Mometasone-Formoterol Inhale 2 puffs into 0 01/29/2022 (Dulera) 200-5 the lungs 2 times mcg/actuation HFA daily. Aerosol Inhaler carvediloL (Coreg) 6.25 TAKE ONE TABLET BY 180 tablet 0 05/0108/05/2021 mg Tablet MOUTH TWICE A DAY fludrocortisone TAKE ONE TABLET BY 30 tablet 0 03/07/2021 0 02/03/2022 (Florinef) 0.1 mg Tablet MOUTH EVERY DAY mycophenolate (Cellcept) TAKE TWO CAPSULES 360 capsule 2 01/202112/02/2021 250 mg Capsule BY MOUTH TWICE A DAY documented as of this encounter Plan of Treatment Scheduled Orders Name Type Priority Associated Diagnoses Order S chedule Pulmonary Function PFT Routine SOB (shortness of 1 Oc currences starting Testing breath) 07/12/2021 unti l 07/12/2021 documented as of this encounter Procedures Procedure Name Priority Date/Time Associated Diagnosis Comme nts PULMONARY FUNCTION Routine 07/12/2021 10:10 AM Persistent dysp silvia Results for this TEST EST following procedure are i n respiratory the results infection section. documented in this encounter Results Pulmonary Function Testing (07/12/2021 10:10 AM EST) P athologist Signature FVC Actual 4.33 L COMPAS PFT Pre-BD FVC Pre-BD % of 87 % COMPAS PFT Predicted FVC Predicted 4.99 L COMPAS PFT FVC Pre-BD -0.96 COMPAS PFT Z-Score FVC Lower 3.86 L COMPAS PFT Limits of Normal FEV1 Actual 3.50 L COMPAS PFT Pre-BD FEV1 Pre-BD % 90 % COMPAS PFT of Predicted FEV1 Predicted 3.89 L COMPAS PFT FEV1 Pre-BD -0.73 COMPAS PFT Z-Score FEV1 Lower 3.00 L COMPAS PFT Limits of Normal FEV1 / FVC 81 % COMPAS PFT Actual Pre-BD FEV1/FVC Pre-BD 0.49 COMPAS PFT Z-Score FEV1 / FVC LLN 67 % COMPAS PFT [id number] Actual 3.55 L/s COMPAS PFT Pre-BD [id number] Pre-BD 104 % COMPAS PFT % of Predicted [id number] 3.41 L/s COMPAS PFT Predicted [id number] Pre-BD 0.12 COMPAS PFT Z-Score MVV Predicted 152.0 L COMPAS PFT MVV Actual 133.4 L COMPAS PFT Pre-BD MVV Pre-BD % of 88 % COMPAS PFT Predicted FRC Predicted 3.60 L COMPAS PFT FRC Actual 2.56 L COMPAS PFT Pre-BD FRC Pre-BD % of 71 % COMPAS PFT Predicted FRC Pre-BD -1.73 COMPAS PFT Z-Score TLC Predicted 7.27 L COMPAS PFT TLC Actual 6.44 L COMPAS PFT Pre-BD TLC Pre-BD % of 89 % COMPAS PFT Predicted TLC Pre-BD -1.19 COMPAS PFT Z-Score RV Predicted 2.31 L COMPAS PFT RV Actual 2.07 L COMPAS PFT Pre-BD RV Pre-BD % of 90 % COMPAS PFT Predicted RV Pre-BD -0.59 COMPAS PFT Z-Score RVoTLC 35 % COMPAS PFT Predicted RVoTLC Actual 32 % COMPAS PFT Pre-BD RVoTLC Pre-BD % 91 % COMPAS PFT of Predicted RVoTLC Pre-BD -0.55 COMPAS PFT Z-Score VC Predicted 4.99 L COMPAS PFT VC Actual 4.37 L COMPAS PFT Pre-BD VC Pre-BD % of 88 % COMPAS PFT Predicted VC Pre-BD -0.90 COMPAS PFT Z-Score MIP Actual 81 cmH2O COMPAS PFT Pre-BD MEP Actual 112 cmH2O COMPAS PFT Pre-BD Specimen (Source) Anatomical Location Collection Method / Collectio n Time Received Time / Laterality Volume Narrative COMPAS PFT - 07/12/2021 10:10 AM EST FINDINGS: The FEV1, FVC, and FEV1/FVC are within normal limits. TLC is normal and RV/TLC is not increased. Maximal expiratory pressure was 112 cm H2O which is normal. Maximal inspiratory pressure was 81 cm H2O which is normal. The MVV is normal. IMPRESSION: Normal spirometry. Lung volumes indicate normal total lung capac ity without evidence of air trapping. Normal inspiratory and expiratory muscle streng th. Normal maximal voluntary ventilation. Compared to the last study on 05/30/21, the FVC and F EV1 are not significantly changed. Procedure Note Susana Gupta MD - 07/15/2021 FINDINGS: The FEV1, FVC, and FEV1/FVC ar e within normal limits. TLC is normal and RV/TLC is not increased. Maximal expiratory pressure was 112 cm H2O which is normal. Maximal inspiratory pressure was 81 cm H2O which is normal. The MVV is normal. IMPRESSION: Normal spirometry. Lung volumes indicate normal total lung capac ity without evidence of air trapping. Normal inspiratory and expiratory muscle streng th. Normal maximal voluntary ventilation. Compared to the last study on 05/30/21, the FVC and F EV1 are not significantly changed. Mauricio Villagran MD PFT ORDERABLES Performing Organization Address City/State/ZIP Code Phon e Number COMPAS PFT documented in this encounter Visit Diagnoses Diagnosis SOB (shortness of breath) Shortness of breath Persistent dyspnea following respiratory infection Other dyspnea and respiratory abnormalit y documented in this encounter Care Teams License Inspector Relationship Specialty Start Date End Date Anna Mullen MD PCP - General 12/03/10 [address] [place] [address] documented as of this encounter
--- OUTSIDE RECORDS SUMMARY | 2022-03-13 18:23 | XMS_ITS | Encounter Summary ---
:1965 Author Organization [facility] [place] [address] Care Team Providers Name Role Phone Anna Mullen MD Primary Care Provider Encounter Details Date Type Department Care Team Description 07/12/2021 Hospital Encounter [place] [facility] [place] Mauricio Villagran, Persistent dyspnea [address] [place] [facility] respiratory [id number] Center infection [phone] [place] [address] Social History Tobacco Use Types Packs/Day Years [...] TAKE 1 TABLET BY 0 07/18 n ([place]) 10-325 mg MOUTH TWICE DAILY Tablet NEEDED [...] Name Priority Date/Time Associated Diagnosis Comme nts XR CHEST PA AND Routine 07/12/2021 9:44 AM Persistent dyspnea Results for this LATERAL EST following procedure are i n respiratory the results infection section. documented in this encounter Results XR Chest PA & Lateral (Generic) (07/12/2021 9:44 AM EST) Anatomical Region Laterality Modality Chest N/A Digital Radiography Specimen (Source) Anatomical Location Collection Method / Collectio n Time Received Time / Laterality Volume Impressions 07/12/2021 9:54 AM EST No acute cardiopulmonary process. I have personally reviewed the image(s) and the resident's interpretation and agree with the findings, Unique Argueta at 07/12/2021 9:54 AM Thank you for letting us participate in the care of this patient. ??If you are a health care provider and have any questi ons regarding this report, please contact the number below. ??For patients who have questions please contact the health healthcare science specialist that requested your imaging first. ? Narrative 07/12/2021 9:54 AM EST EXAMINATION: XR CHEST PA AND LATERAL (GENERIC) CLINICAL HISTORY: Dyspnea TECHNIQUE: PA and lateral views of the c hest COMPARISON: 02/09/2020 FINDINGS: Cardiomediastinal silhouette, pulmonary vascular markings, and hilar contours are within normal limits. Lungs are jeffrey r. No pulmonary masses or consolidations. No pneumothorax. No pleu ral effusions. No acute osseous abnormalities. Procedure Note Iraj Rhodes DO - 07/12/2021Formatti ng of this note might be different from the original. EXAMINATION: XR CHEST PA AND LATERAL (GE NERIC) CLINICAL HISTORY: Dyspnea TECHNIQUE: PA and lateral views of the c hest COMPARISON: 02/09/2020 FINDINGS: Cardiomediastinal silhouette, pulmonary vascular markings, and hilar contours are within normal limits. Lungs are jeffrey r. No pulmonary masses or consolidations. No pneumothorax. No pleu ral effusions. No acute osseous abnormalities. IMPRESSION No acute cardiopulmonary process. I have personally reviewed the image(s) and the resident's interpretation and agree with the findings, Unique Argueta at 07/12/2021 9:54 AM Thank you for letting us participate in the care of this patient. If you are a health care provider and have any questi ons regarding this report, please contact the number below. For patients w ho have questions please contact the health healthcare science specialist that requested your imaging first. Mauricio Villagran MD IMG DX ORDERABLES documented in this encounter Visit Diagnoses Diagnosis Persistent dyspnea following respiratory infection Other dyspnea and respiratory abnormalit y documented in this encounter Care Teams Crown Ironer Relationship Specialty Start Date End Date Anna Mullen MD PCP - General 12/03/10 [address] [place] [address] documented as of this encounter
--- OUTSIDE RECORDS SUMMARY | 2022-03-13 18:23 | XMS_ITS | Encounter Summary ---
:1965 Author Organization [facility] [place] [address] Care Team Providers Name Role Phone Anna Mullen MD Primary Care Provider Reason for Visit Reason Comments Medication Refill Encounter Details Date Type Department Care Team Description 08/04/2021 Refill Solid Organ Transplant at Eriberto Emery MD [facility] [employer] [place] [address] [place] [address] [phone] (Wo rk) Social History Tobacco Use Types [...] on filedocumented in this encounter Care Teams Public Health Physician Relationship Specialty Start Date End Date Anna Mullen MD PCP - General 12/03/10 [address] [place], [place] [id number] documented as of this encounter
--- OUTSIDE RECORDS SUMMARY | 2022-03-13 18:23 | XMS_ITS | Encounter Summary ---
:1965 Author Organization [facility] [place] [address] Care Team Providers Name Role Phone Anna Mullen MD Primary Care Provider Encounter Details Date Type Department Care Team Description 07/18/2021 [place] [facility] [place] Mauricio Villagran [place] [facility] [place] [address] Pulmonary Medicine [phone] [place] [phone] (Wo rk) Social History Tobacco Use Types Packs/Day Years Used Date Never Smoker Smokeless Tobacco: Never Used Alcohol Use Standard Drinks/Week Comments No 0 (1 standard drink = 0.6 oz pure alcoho l) history of abuse, stopped 1996 Sex Assigned at Date Recorded Male 05/29/2021 11:28 PM EDT documented as of this encounter Miscellaneous Notes Telephone Encounter - Mauricio Villagran MD - 07/18/2021 11:23 AM EST Pulmonary Phone Note I have attempted to contact this patient by phone with the following results: left message to returnmy call on voice mail, also sent myD-H message Mauricio Villagran MD, PhD Staff Physician Pulmonary and Critical Care Medicine 11:23 AM 07/18/2021 documented in this encounter Plan of Treatment Not on filedocumented as of this encounter Visit Diagnoses Not on filedocumented in this encounter Care Teams Dry Cleaning Attendant Relationship Specialty Start Date End Date Anna Mullen MD PCP - General 12/03/10 [address] [place] [address] documented as of this encounter
--- OUTSIDE RECORDS SUMMARY | 2022-03-13 18:23 | XMS_ITS | Clinical Summary ---
:1965 Author Organization [facility] [place] [address] Care Team Providers Name Role Phone Anna Mullen MD Primary Care Provider Allergies Active Allergy Reactions Severity Noted Date Comments Esomeprazole 06/21/2018 Other reaction( s): Diarrhea Lisinopril Shortness Of Breath High 06/21/2020 Esomeprazole Magnesium Diarrhea 12/25/2010 Any a deepak reflux medication caus es severe diarrhea Omeprazole 09/08/2019 Other reaction( s): Diarrhea Oxycodone Hcl Medium 10/18/2020 Omeprazole Magnesium Diarrhea 01/29/2012 Metoclopramide Hcl 11/05/2012 TD Simvastatin Medications Medication Sig Dispensed Refills Start Date End Date Status sildenafil (VIAGRA) Take 1 tablet by mouth as ne eded for Erectile Dysfunction. 90 day supply 60 tablet 6 09/14/2012 Active 100 mg tablet Dx code :250.60 ondansetron (ZOFRAN) Take 1 tablet by 15 tablet 0 08/30/2015 Active 8 mg Tablet mouth every 8 hours as needed for Nausea. psyllium 3.5 gram Take 1 packet by 30 each 0 09/01/2015 Active Powder in Packet mouth daily. pantoprazole Take 40 mg by 0 Act kate (PROTONIX) 40 mg mouth 2 times Tablet, Delayed daily. Release (E.C.) multivitamin Capsule Take 1 capsule by 0 Active mouth daily. Magnesium Gluconate Take 1 tablet by 30 tablet 11 11/27/2016 Active (MAG-G) 27 mg (500 mouth daily. mg) Tablet fexofenadine Take 60 mg by 0 Act kate (BECKY) 60 mg mouth daily. Tablet levothyroxine Take 150 mcg by 0 Active (SYNTHROID) 150 mcg mouth daily. Tablet valACYclovir TAKE ONE TABLET 30 tablet 3 08/10/2018 Active (VALTREX) 500 mg BY MOUTH THREE TabletIndications: TIMES A DAY 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 atorvastatin Take 1 tablet by 90 tablet 2 08/07/2019 Active (LIPITOR) 10 mg mouth daily. Tablet venlafaxine Take 150 mg by 0 Act kate (EFFEXOR-XR) 150 mg mouth Daily. Capsule, Sust. Release 24 hr venlafaxine XR Take 75 mg by 0 08/13/2019 Active (EFFEXOR-XR) 75 mg mouth daily. Capsule, Sust. Taking with 150 Release 24 hr mg to total 225 mg total clopidogrel (PLAVIX) Take 1 tablet by 90 tablet 3 08/30/2019 Active 75 mg Tablet mouth daily. verapamil SR Take 120 mg by 0 Ac tive (Calan-SR) 120 mg mouth daily. Tablet Sustained Release gabapentin Take 300 mg by 0 Acti ve (Neurontin) 300 mg mouth 3 times Capsule daily. Takes 1 caps in the morning, 2 caps in the afternoon and 2 caps at night. acetaminophen Take 1,000 mg by 0 Active (Tylenol) 500 mg mouth every 6 Tablet hours as needed for Pain. amoxicillin (Amoxil) TAKE 4 CAPSULES 0 04/02/2020 Active 500 mg Capsule BY MOUTH 1 HOUR PRIOR TO DENTAL APPOINTMENT OneTouch Ultra Blue TEST BLOOD SUGAR 0 03/29/2020 Active Test Strip Strip ONCE DAILY betamethasone 0 07/19/2020 Activ e dipropionate (DIPROLENE) 0.05 % Cream HYDROcodone-acetamino TAKE 1 TABLET BY 0 07/18/2020 Active phen (Bly) 10-325 MOUTH TWICE DAILY mg Tablet NEEDED FOR PAIN hydrALAZINE TAKE ONE TABLET 180 tablet 3 05/17/2021 Active (Apresoline) 25 mg BY MOUTH TWICE A Tablet DAY rOPINIRole (Requip) Take 0.25 mg by 0 Active 0.25 mg Tablet mouth daily. diazePAM (Valium) 5 Take 1 tablet by 2 tablet 0 05/31/2021 Active mg Tablet mouth as needed for Anxiety. INSTRUCTIONS: Take 1-2 tablets (5mg - 10mg) by mouth 30 to 60 minutes prior to MRI procedure. losartan (COZAAR) 100 TAKE 1 TABLET BY 30 tablet 11 06/17/2021 Active mg TabletIndications: MOUTH EVERY NIGHT Aftercare following (REPLACING organ transplant LISINOPRIL) fish oil-omega-3 Take 2 g by mouth 0 Active fatty acids 1,000 mg daily. Capsule Prograf 1 mg TAKE 2 CAPSULES 90 capsule 9 07/10/2021 Active CapsuleIndications: ORALLY IN MORNING H/O pancreas AND 1 CAPSULE IN transplant, EVENING Prophylactic immunotherapy carvediloL (Coreg) TAKE ONE TABLET 180 tablet 2 08/05/2021 Active 6.25 mg Tablet BY MOUTH TWICE A DAY mycophenolate TAKE TWO CAPSULES 360 capsule 1 12/02/2021 Active (Cellcept) 250 mg BY MOUTH TWICE A CapsuleIndications: DAY H/O pancreas transplant, Prophylactic immunotherapy fludrocortisone Take 0.5 tablets 45 tablet 3 02/03/2022 Active (Florinef) 0.1 mg by mouth daily. 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 Fever 07/31/2017 Prophylactic immunotherapy 02/11/2017 H/O pancreas transplant 08/06/2016 Depression 08/06/2016 Aftercare following organ transplant 08/06/2016 Encounter for long-term (current) use of other medicat ions 08/06/2016 Dehydration 08/30/2015 Nevus 09/07/2014 Vitiligo 09/07/2014 Ulnar neuropathy 10/18/2013 Pancreatitis 08/30/2013 Immunosuppression 08/30/2013 Diabetes mellitus 01/15/2012 Overview: -on insulin pump Stroke-like symptoms 01/15/2012 Hypertension 01/15/2012 Gastroparesis due to DM 01/15/2012 Migraine 01/15/2012 LBP radiating to right leg 01/28/2011 Resolved Problems Problem Noted Date Resolved Date Edema 01/15/2012 08/01/2017 Overview: -possibly due to norvas Encounters Date Type Specialty Care Team Description 02/03/2022 Refill Transplant Eriberto Melgar MD 01/29/2022 Office Visit Transplant Talia, Obstructive sle ep apnea syndrome; Eriberto Stoddard MD Aftercare foll owing organ transplant; H/O pancreas tr ansplant; Prophylactic im munotherapy 01/29/2022 Laboratory Lab Appointment 01/29/2022 Laboratory Lab Pancreas replac ed by transplant; Appointment Immunosuppressi on; Preventative he alth care; Hypothyroidism, unspecified type; H/O pancreas tr ansplant; long-term curre nt use of immunosuppressive drug; Vitamin D defic iency 01/28/2022 [facility]; MD Bruce Hypothyroidism, unspecified type 12/12/2021 Laboratory Lab H/O pancreas tr ansplant; 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 of immunosuppressive drug; Vitamin D defic iency from Last 3 Months Immunizations Name Administration Dates Next Due Influenza PF, Split 08/17/2019, 05/19/2016, 05/31/2014 Influenza Vaccine W/preservative, 06/11/2019 Quadrivalent Influenza Vaccine w/Preservative, 05/22/2012 Split Influenza Vaccine, Whole 06/11/2009 Moderna Covid-19 (Bag Machine Operator 100mcg) 09/28/2021, 04/18/2021, , Vaccine 10/31/2020 Pneumococcal Conjugate (13 Valent) 02/22/2016 Pneumococcal Polyvalent 23 08/17/2019, 06/14/2014, 4 Tdap Vaccine 03/05/2011 Family History Medical History Relation Comments High Blood Pressure Brother Alcohol Use Disorder Father Chronic Obstructive Pulmonary Disease Father Stroke Maternal Grandfather Coronary Artery Disease Maternal Grandmother Diabetes Maternal Grandmother Heart Disease Maternal Grandmother High Blood Pressure Mother Asthma Neg Hx Relation Status Comments Brother Father Maternal Grandfather Maternal Grandmother Mother Social History Tobacco Use Types Packs/Day Years Used Date Never Smoker Smokeless Tobacco: Never Used Tobacco Cessation: Ready to Quit: Not As ked Alcohol Use Standard Drinks/Week Comments No 0 (1 standard drink = 0.6 oz pure alcoho l) history of abuse, stopped 1996 Sex Assigned at Date Recorded Male 05/29/2021 11:28 PM EDT Last Filed Vital Signs Vital Sign Reading Time Taken Comments Blood Pressure 140/82 01/29/2022 9:13 AM EDT Pulse 64 01/29/2022 9:13 AM EDT Temperature 36.9 ??C (98.5 ??F) 01/29/2022 9:13 AM EDT Respiratory Rate 16 04/25/2021 5:10 PM EDT Oxygen Saturation 98% 01/29/2022 9:13 AM EDT Inhaled Oxygen Concentration - - Weight 101.7 kg (224 lb 3.2 oz) 01/29/2022 9:13 AM EDT Height 182.9 cm (6') 05/30/2021 8:38 AM EDT reported Body Mass Index 30.41 05/30/2021 8:38 AM EDT Plan of Treatment Health Maintenance Due Date Last Done Comments Zoster vaccine (1 of 2) 1986 DM Urine Microalbumin yearly 09/14/2013 09/14/2012, 012 DM Opthalmology Exam 03/28/2014 03/28/2013 (Outside per pat ient (enter details in comments)) Colonoscopy 10/24/2017 10/24/2014, 10/24/2014 Tetanus vaccine 03/05/2021 03/05/2011 Influenza (Flu) vaccine (1 of 1 - 05/01/2022 08/17/2019, , Influenza standard series) 05/19/2016, Additiona l history exists DM Hemoglobin A1c 6 month 07/31/2022 01/29/2022, 12/12/2021 , 04/16/2021, Additional history exists DM Creatinine yearly 01/29/2023 01/29/2022, 12/12/2021, 04/16/2021, Additional history exists Pneumococcal Vaccine: At-Risk 2032 08/17/2019, 2015, 5-64yrs (4 - PPSV23 or PCV20) 06/14/2014, Additi onal history exists Tdap adult Completed 03/05/2011 HIV screen Completed 08/28/2013, 11/15/2012, 01/21/2012 Hepatitis C Screening Completed 08/28/2013, 11/15/2012, 01/21/2012 Covid-19 Vaccine Completed 09/28/2021, 04/18/2021, 11/28/2020, Additional history exists Medical Devices Implanted Type Area 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 T4, FREE Routine 01/29/2022 8:07 Results for this AM EDT procedure are i n the results section. LIPID PANEL (REFLEX Routine 01/29/2022 8:07 Resul ts for this DIRECT LDL) AM EDT procedure are i n the results section. PSA SCREEN Routine 01/29/2022 8:07 Results for this AM EDT procedure are i n the results section. TSH Routine 01/29/2022 8:07 Results for this AM EDT procedure are i n the results section. DIFFERENTIAL, Routine 01/29/2022 8:07 Pancreas replaced by Res ults for this AUTOMATED AM EDT transplant procedure are in Immunosuppression the result s section. HEMOGRAM Routine 01/29/2022 8:07 Pancreas replaced by Resu lts for this AM EDT transplant procedure are in Immunosuppression the result s section. 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 HC HEMOGLOBIN A1C Routine 01/29/2022 8:07 Preventative h ealth care Results for this AM EDT Hypothyroidism, procedure ar e in unspecified type the results section. HC CBC,PLT & AUTO Routine 01/29/2022 8:07 Pancreas replaced by DIFF AM EDT transplant Immunosuppression HC RETIC,AUTO Routine 01/29/2022 8:07 Pancreas replaced by Res ults for this INCLUDES RETHE & IRF AM EDT transplant procedure are in Immunosuppression the result s section. HC MAGNESIUM, SERUM Routine 01/29/2022 8:07 Pancreas replaced by Results for this AM EDT transplant procedure are in Immunosuppression the result s section. HC PHOSPHORUS, SERUM Routine 01/29/2022 8:07 Pancreas replaced by Results for this AM EDT transplant procedure are in Immunosuppression the result s section. CHOLESTEROL, TOTAL Routine 01/29/2022 8:07 Pancreas replaced b y Results for this AM EDT transplant procedure are in Immunosuppression the result s section. HC URIC ACID, SERUM Routine 01/29/2022 8:07 [...] in Immunosuppression the result s section. HC VENIPUNCTURE Routine 01/29/2022 8:07 Pancreas replaced by R esults for this AM EDT transplant procedure are in Immunosuppression the result s section. 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 HC MAGNESIUM, SERUM Routine 12/12/2021 9:08 H/O pancreas transplant Results for this AM EDT long-term current use of pro cedure are in immunosuppressiv e drug the results Vitamin D deficiency section . 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 HC AMYLASE Routine 12/12/2021 9:08 H/O pancreas tra nsplant Results for this AM EDT long-term current use of pro cedure are in immunosuppressiv e drug the results Vitamin D deficiency section . HC LIPASE Routine 12/12/2021 9:08 H/O pancreas tra nsplant Results for this AM EDT long-term current use of pro cedure are in immunosuppressiv e drug the results Vitamin D deficiency section . 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 HC HEMOGLOBIN A1C Routine 12/12/2021 9:08 H/O pancreas t ransplant Results for this AM EDT long-term current use of pro cedure are in immunosuppressiv e drug the results Vitamin D deficiency section . 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 HC BK VIRUS QUANT Routine 12/12/2021 9:08 H/O pancreas t ransplant Results for this PCR,PLASMA AM EDT long-term current use of pro cedure are in immunosuppressiv e drug the results Vitamin D deficiency section . HC VENIPUNCTURE Routine 12/12/2021 9:08 H/O pancreas tra nsplant Results for this AM EDT long-term current use of pro cedure are in immunosuppressiv e drug the results Vitamin D deficiency section . URINALYSIS WITH Routine 12/12/2021 9:03 H/O pancreas tra nsplant Results for this REFLEX CULTURE AM EDT long-term current use of p rocedure are in immunosuppressiv e drug the results Vitamin D deficiency section . from Last 3 Months Results Urinalysis with reflex Culture (01/29/2022 8:21 AM EDT)Only the most recent of2 resultswithin the time period is included. [facility] Method Time Signature Glucose UA Negative Negative [facility] mg/dL [facility] Protein UA Negative Negative [facility] mg/dL [facility] Bilirubin UA Negative Negative [facility] mg/dL [facility] Comment: Clinical correlation required for positi ve Urine Bilirubin results as false positive may occur with some drugs and d rug related products. If a false positive is suspected a serum total bili sinha should be considered if clinically indicated. Urobilinogen UA Normal Normal mg/dL [facility] pH UA 6.5 5.0 - 8.0 [facility] Blood UA Negative Negative mg/dL [facility] Ketones UA Negative Negative mg/dL [facility] Nitrite UA Negative Negative [facility] Leukocytes UA Negative Negative [facility] Appearance UA Clear Clear [facility] Spec Arminto UA 1.008 1.005 - 1.030 [facility] Color UA Yellow Yellow [facility] Culture Reflexed No [facility] Specimen Anatomical Collection Method Collection Time Receive d Time (Source) Location / / Volume Laterality Clean Catch 01/29/2022 8:21 AM 8:42 Urine EDT AM EDT Resulting Agency Comment Spec In Lab Eriberto Melgar MD URINE ORDERABLES Performing Organization Address City/State/[place] [address] BKV Quant Blood (01/29/2022 8:07 AM EDT)Only the most recent of2 resultswithin the time period is included. Patholo gist Method Time Signature BKV Blood Not Detected Not Detected TIFFANI Result IU/mL [facility] Comment: Indication for Study: Monitoring BKV DNA Analysis: The jessica BKV test is an in vi tro nucleic acid amplification tests using real-time polymerase chain reactio n (PCR) assay for the quantitative measurement of BK virus (BKV) DNA in hum an EDTA plasma. Sample: EDTA plasma Method: jessica BKV test used with the 680 0 platform ([employer]) Linear Range: 21.5 - 1.0 x 10^8 IU/mL (1 .33 - 8.00 log IU/mL) Note: The Nora jessica BKV assay has been cleared by the U.S. Food and Drug Administration for clinical testing. Specimen Anatomical Collection Method Collection Time Receive d Time (Source) Location / / Volume Laterality Blood 01/29/2022 8:07 AM 2 EDT 10:30 AM EDT Resulting Agency Comment Spec In Lab Eriberto Melgar MD IMMUNOLOGY ORDERABLES Performing Organization Address City/State/[place] [address] PSA Screen (01/29/2022 8:07 AM EDT) P athologist Signature PSA Total 0.37 0.00 - 4.00 [facility] ng[facility]mL [facility] Comment: PLEASE NOTE: The above reference interva l is intended for healthy males with an intact prostate. Values within this refe rence interval may indicate recurrence in men who have undergone radical prosta tectomy. Specimen Anatomical Collection Method Collection Time Receive d Time (Source) Location / / Volume Laterality Blood Venous Draw / 01/29/2022 8:07 AM 01/30/20 22 8:14 Unknown EDT AM EDT Resulting Agency Comment Spec In Lab Anna Mullen MD CHEMISTRY ORDERABLES Performing Organization Address City/[facility]/[place] [address] (ABNORMAL) Hemogram (01/29/2022 8:07 AM EDT)Only the most recent of2 results within the time period is included. Analysis Performed At Patho logist Time Signature WBC 5.4 4.0 - 9.5 [facility] x10(3)/[facility] LABORATORY RBC 4.33 (L) 4.58 - [facility] 5.54 [facility] x10(6)/[facility] LABORATORY Hemoglobin 13.4 (L) 13.7 - [facility] 16.5 g/dL [facility] Hematocrit 39.0 (L) 40.5 - [facility] 48.5 % [facility] MCV 90.1 82.9 - [facility] 93.1 [facility] MCH 30.9 27.5 - [facility] 32.1 pg [facility] MCHC 34.4 32.0 - [facility] 35.7 g/dL [facility] Platelets 202 145 - 357 [facility] x10(3)/[facility] LABORATORY RDWSD 39.8 36.0 - [facility] 45.0 [facility] LABORATORY RDWCV 12.1 11.4 - [facility] 13.8 % [facility] MPV 10.6 7.6 - 12.9 [facility] LABORATORY nRBC % Auto 0.0 % [facility] nRBC Abs Auto 0.000 0.000 - [facility] 0.000 [facility] x10(3)[facility] LABORATORY Specimen Anatomical Collection Method Collection Time Receive d Time (Source) Location / / Volume Laterality Blood 01/29/2022 8:07 AM 8:13 EDT AM EDT Resulting Agency Comment Spec In Lab Eriberto Melgar MD HEMATOLOGY ORDERABLES Performing Organization Address City/State/[place] [address] Differential, Automated (01/29/2022 8:07 AM EDT)Only the most recent of2 results within the time period is included. P athologist Signature Neutrophils % 41.4 % [facility] Neutr Abs (ANC) 2.23 1.70 - [facility] 6.10 [facility] x10(3)/[facility] LABORATORY Lymphocytes % 45.0 % [facility] Lymphocytes Abs 2.4 0.9 - 3.2 [facility] x10(3)/[facility] LABORATORY Monocytes % 9.1 % [facility] Monocyte Abs 0.5 0.3 - 0.9 [facility] x10(3)/[facility] LABORATORY Eosinophils % 3.2 % [facility] Eosinophils Abs 0.2 0.0 - 0.4 [facility] x10(3)/[facility] LABORATORY Basophils % 0.9 % [facility] Basophils Abs 0.0 0.0 - 0.1 [facility] x10(3)/[facility] LABORATORY Immature Gran % 0.40 % [facility] Comment: Immature granulocytes(IG's)percentage an d absolute count will include metamyelocytes, myelocytes, and promyelo cytes. Blood smears from CBCs yielding IG's will be scanned manually for concor dance. If this scan disagrees with the automated IG or if promyelocytes are not ed, a manual differential will be performed. Kym Gran Abs 0.02 0.00 - 0.04 x10(3)/[facility] MAR Y [facility] Specimen Anatomical Collection Method Collection Time Receive d Time (Source) Location / / Volume Laterality Blood 01/29/2022 8:07 AM 8:13 EDT AM EDT Resulting Agency Comment Spec In Lab Eriberto Melgar MD HEMATOLOGY ORDERABLES Performing Organization Address City/State/[place] [address] Tacrolimus level (01/29/2022 8:07 AM EDT)Only the most recent of2 resultswithin the time period is included. athologist Signature Tacrolimus Lvl 9.4 ng/mL [facility] Comment: Trough therapeutic range is 3-15 [...] Melgar MD CHEMISTRY ORDERABLES Performing Organization Address City/[facility]/ZIP Code Phon e Number [address] Reticulocyte Count (01/29/2022 8:07 AM EDT)Only the most recent of2 results within the time period is included. P athologist Signature Retic Ct % 1.4 0.7 - 2.6 [facility] Retic Ct Abs 0.060 0.030 - [facility] 0.120 [facility] x10(6)/[facility] LABORATORY Immature Retic% 4.6 0.0 - 15.6 [facility] K [facility]ORY Reticulated Hgb 34.7 31.3 - [facility] 40.2 pg [facility] Specimen Anatomical Collection Method Collection Time Receive d Time (Source) Location / / Volume Laterality Blood 01/29/2022 8:07 AM 2 8:13 EDT AM EDT Resulting Agency Comment Spec In Lab Eriberto Melgar MD HEMATOLOGY ORDERABLES Performing Organization Address City/[facility]/ZIP Code Phon e Number [address] Uric acid (01/29/2022 8:07 AM EDT)Only the most recent of2 resultswithin the time period is included. P athologist Signature Uric Acid 6.3 3.5 - 8.5 [facility] mg/dL [facility] Specimen Anatomical Collection Method Collection Time Receive d Time (Source) Location / / Volume Laterality Blood 01/29/2022 8:07 AM 2 8:14 EDT AM EDT Resulting Agency Comment Spec In Lab Eriberto Melgar MD CHEMISTRY ORDERABLES Performing Organization Address City/[facility]/ZIP [facility] Phon e Number [address] (ABNORMAL) TSH (01/29/2022 8:07 AM EDT) athologist Signature TSH 0.25 (L) 0.27 - 4.20 TIFFANI GREENE mcIU/mL [facility] Comment: Reference Interval (mcIU/mL): Females: ??First Trimester: 0.23-3.88 ??Second Trimester: 0.22-3.90 ??Third Trimester: 0.44-4.66 Specimen Anatomical Collection Method Collection Time Receive d Time (Source) Location / / Volume Laterality Blood Venous Draw / 01/29/2022 8:07 AM 01/30/20 22 8:14 Unknown EDT AM EDT Resulting Agency Comment Spec In Lab Anna Mullen MD CHEMISTRY ORDERABLES Performing Organization Address City/[facility]/ZIP [facility] Phon e Number [address] (ABNORMAL) T4, free (01/29/2022 8:07 AM EDT) athologist Signature Free T4 1.78 (H) 0.93 - 1.70 TIFFANI CHRISTOPHERCOCK ng/dL [facility] Comment: Reference Interval (ng/dL): Females: ??First Trimester: 0.97-1.68 ??Second Trimester: 0.77-1.51 ??Third Trimester: 0.77-1.49 Specimen Anatomical Collection Method Collection Time Receive d Time (Source) Location / / Volume Laterality Blood Venous Draw / 01/29/2022 8:07 AM 01/30/20 22 8:17 Unknown EDT AM EDT Resulting Agency Comment Spec In Lab Anna Mullen MD CHEMISTRY ORDERABLES Performing Organization Address City/[facility]/ZIP [facility] [place] [address] (ABNORMAL) Phosphorus (01/29/2022 8:07 AM EDT)Only the most recent of2 results within the time period is included. athologist Signature Phosphorus 2.2 (L) 2.5 - 4.5 TIFFANI RAMONA mg/dL [facility] Specimen Anatomical Collection Method Collection Time Receive d Time (Source) Location / / Volume Laterality Blood 01/29/2022 8:07 AM 8:14 EDT AM EDT Resulting Agency Comment Spec In Lab Eriberto Melgar MD CHEMISTRY ORDERABLES Performing Organization Address City/[facility]/ZIP Code Phon e Number [address] (ABNORMAL) Magnesium (01/29/2022 8:07 AM EDT)Only the most recent of2 results within the time period is included. athologist Signature Magnesium 0.66 (L) 0.69 - 1.07 [facility] mmol/L [facility] Specimen Anatomical Collection Method Collection Time Receive d Time (Source) Location / / Volume Laterality Blood 01/29/2022 8:07 AM 2 8:14 EDT AM EDT Resulting Agency Comment Spec In Lab Eriberto Melgar MD CHEMISTRY ORDERABLES Performing Organization Address City/[facility]/ZIP Code Phon e Number [address] Lipase (01/29/2022 8:07 AM EDT)Only the most recent of2 resultswithin the time period is included. athologist Signature Lipase 23 0 - 60 [facility] unit/[facility] Specimen Anatomical Collection Method Collection Time Receive d Time (Source) Location / / Volume Laterality Blood 01/29/2022 8:07 AM 2 8:14 EDT AM EDT Resulting Agency Comment Spec In Lab Eriberto Melgar MD CHEMISTRY ORDERABLES Performing Organization Address City/[facility]/ZIP [facility] Phon e Number [address] Hemoglobin A1c (01/29/2022 8:07 AM EDT)Only the most recent of2 resultswithin the time period is included. athologist Signature Hemoglobin A1C 5.2 4.3 - 5.6 [facility] Comment: Reference Range: 4.3 - [...] Mellitus, Diabetes Care 2013; 36: Suppl. 1, S67-74 Est Avg Gluc 103 mg/dL TIFFANI GREENE [facility] Comment: eAG equivalents for HbA1c percentages: HbA1c(%) ?eAG(mg/dL) 6.0 ?126 6.5 ?140 7.0 ?154 7.5 ?169 8.0 ?183 8.5 ?197 9.0 ?212 9.5 ?226 10.0 ? 240 Limitations: The eAG calculation has not been validated on women, individuals below 18 years old and above 70 years old, and individuals with hemoglobinopathies. Additional resources are available on [facility] ADA website. Edinson GRISSOM, Nathaniel J, Ari R, et al. ??Tr anslating the A1C assay into estimated average glucose values. ??Diabetes Care 2008:31(8):9565-3134. Specimen Anatomical Collection Method Collection Time Receive d Time (Source) Location / / Volume Laterality Blood 01/29/2022 8:07 AM 2 8:13 EDT AM EDT Resulting Agency Comment Spec In Lab Anna Mullen MD CHEMISTRY ORDERABLES Performing Organization Address City/State/[place] [address] Cholesterol, total (01/29/2022 8:07 AM EDT)Only the most recent of2 results within the time period is included. P athologist Signature Chol, Total 114 mg/dL [facility] Comment: Lower Risk: <200 mg/dL Average Risk: 200-239 mg/dL Higher Risk: >ux=436 mg/dL Lipid Interpretation See Note [facility] Comment: Lipid management should be guided by a p atient? s ASCVD risk, goals and preferences. ACC/AHA Guidelines recommend high intens ity statin if clinical ASCVD or LDL greater than or equal to 190 mg/dL. http://Playchemy.com/XAI-APT-Schxjvjlc Adults aged 40-75 with LDL 70-189 mg/dL should have their 10 year ASCVD risk estimated with the ACC/AHA ASCVD risk es timator http://tools.acc.org/QIKCA-Hxue-Cgvmbwtd r/ Statin should be discussed if risk [...] Organization Address City/State/[place] [address] Amylase (01/29/2022 8:07 AM EDT)Only the most recent of2 resultswithin the time period is included. P athologist Signature Amylase 53 28 - 100 [facility] Specimen Anatomical Collection Method Collection Time Receive d Time (Source) Location / / Volume Laterality Blood 01/29/2022 8:07 AM 2 8:14 EDT AM EDT Resulting Agency Comment Spec In Lab Eriberto Melgar MD CHEMISTRY ORDERABLES Performing Organization Address City/State/[place] [address] Lipid Panel (Reflex Direct LDL) (01/29/2022 8:07 AM EDT) P athologist Signature Chol, Total 114 mg/dL [facility] Comment: Lower Risk: <200 mg/dL Average Risk: 200-239 mg/dL Higher Risk: >ze=736 mg/dL Triglycerides 127 mg/dL [facility] Comment: Average Risk/Lower Risk: <150 mg/dL Borderline High Risk: 150-199 mg/dL High Risk: 200-499 mg/dL Very High Risk: >mw=247 mg/dL HDL 39 mg/dL [facility] Comment: Males: ?? Higher Risk: <40 mg/dL Females: ?? Higher Risk: <50 mg/dL LDL Cholesterol 50 mg/dL [facility] Comment: Lowest Risk: <100 mg/dL Lower Risk: 100-129 mg/dL Borderline High Risk: 130-159 mg/dL High Risk: 160-189 mg/dL Very High Risk: >ia=675 mg/dL Chol/HDL Ratio 2.9 ratio [facility] Lipid Interpretation See Note [facility] Comment: Lipid management should be guided by a p atient? s ASCVD risk, goals and preferences. ACC/AHA Guidelines recommend high intens ity statin if clinical ASCVD or LDL greater than or equal to 190 mg/dL. http://Lishang.comurl.com/QHZ-BVQ-Ivvfcwynl Adults aged 40-75 with LDL 70-189 mg/dL should have their 10 year ASCVD risk estimated with the ACC/AHA ASCVD risk es timator http://tools.acc.org/ZIMHW-Vlop-Iupmabme r/ Statin should be discussed if risk [...] Organization Address City/State/[place] [address] (ABNORMAL) Comprehensive metabolic panel (non-fasting) (01/29/2022 8:07 AM EDT) Only the most recent of2 resultswithin the time period is included. athologist Signature Glucose Lvl 102 65 - 199 [facility] mg/dL [facility] Comment: Diabetes: >=200 mg/dL plus symp toms BUN 12 10 - 20 mg/dL [facility] Creatinine 0.85 0.80 - 1.50 mg/dL [facility] Sodium 133 (L) 135 - 145 mmol/L [facility] Potassium 4.3 3.5 - 5.0 mmol/L [facility] Comment: Please note: ??Patients with WBC >100,00 0 may have falsely elevated Potassium levels. ??For accurate Potassium quantif ication in these patients send serum separator tube (gold top) for subsequent determinations. ??Contact the Clinical Chemistry Laboratory if there are any qu estions. Chloride 100 98 - 107 mmol/L [facility] CO2 27 22 - 31 mmol/L [facility] Anion Gap 6 5 - 15 mmol/L [facility] Calcium 9.0 8.5 - 10.5 mg/dL [facility] Total Protein 6.7 6.1 - 8.0 g/dL [facility] Albumin 4.3 3.2 - 5.2 g/dL [facility] AST 23 0 - 39 unit/L [facility] ALT 20 0 - 55 unit/L [facility] Alk Phos 102 40 - 130 unit/L [facility] Total Bilirubin 1.5 (H) 0.2 - 1.3 mg/dL [facility] Estimated GFR 99 >=60 mL/min/1.73 m?? [facility] Comment: This patient? s estimated glomerular [...] Organization Address City/State/[place] [address] C-peptide (12/12/2021 9:08 AM EDT) P athologist Signature C-Peptide 2.7 1.1 - 4.4 [facility] ng/mL [facility] Comment: As of December 05, 2020, C-Peptide testing h as moved from the [facility] [employer] to the [facility] [facility]. Please note the updated reference intervals. Specimen Anatomical Collection Method Collection Time Receive d Time (Source) Location / / Volume Laterality Blood 12/12/2021 9:08 AM 2 9:28 EDT AM EDT Resulting Agency Comment Spec In Lab Eriberto Melgar MD CHEMISTRY ORDERABLES Performing Organization Address City/State/[place] [address] from Last 3 Months Insurance Payer Benefit Plan Subscriber ID Effective Dates Phone Address Type / Group [facility] [id number] 2018-Abel [phone] [address] [employer] [address] [place] [address] Advance Directives Documents on File Type Date Recorded Patient Nurse Monitoring Explanati on Advance Directives and Living 08/05/2017 9:34 AM 7.31.13 Will Latest Code Status on File Code Status Date Activated Date Inactivated Comments Full Code 08/06/2019 7:57 PM 08/07/2019 1:35 PM Does patient have capacity to make decision: Yes Full Code 08/06/2019 3:13 PM 08/06/2019 7:57 PM Does patient have capacity to make decision: Yes Full Code 07/31/2017 7:21 PM 08/03/2017 4:47 PM Does patient have capacity to make decision: Yes Full Code 08/30/2015 2:46 PM 09/01/2015 1:13 PM Does patient have capacity to make decision: Yes Full Code 08/30/2013 6:59 PM 09/02/2013 3:55 PM Does patient have decision making capacity? Yes, order is based on Patient wishes. Care Teams Lift Supervisor Relationship Specialty Start Date End Date Anna Mullen MD PCP - General 12/03/10 [address] [place] [address]
--- OUTSIDE RECORDS SUMMARY | 2022-03-13 18:23 | XMS_ITS | Encounter Summary ---
:1965 Author Organization [facility] [place] [address] Care Team Providers Name Role Phone Anna Mullen MD Primary Care Provider Reason for Visit Reason Comments Medication Refill Encounter Details Date Type Department Care Team Description 02/03/2022 Refill Solid Organ Transplant at Eriberto Emery MD [facility] ankit [place] [address] [place] [address] [phone] (Wo rk) Social History Tobacco Use Types [...] on filedocumented in this encounter Care Teams Motorcycle Engine Assembler Relationship Specialty Start Date End Date Anna Mullen MD PCP - General 12/03/10 [address] [place], [place] [address] documented as of this encounter
--- OUTSIDE RECORDS SUMMARY | 2022-03-13 18:24 | XMS_ITS | Encounter Summary ---
:1965 Author Organization [facility] [place] [address] Care Team Providers Name Role Phone Anna Mullen MD Primary Care Provider Encounter Details Date Type Department Care Team Description 06/13/2021 Tech Visit Vascular Lab at [facility] [place] [address] Social History Tobacco Use Types Packs/Day [...] encounter Procedures Procedure Name Priority Date/Time Associated Comments Diagnosis PRG DUPLEX SCAN Routine 06/13/2021 2:18 PM Ischemic stroke Res ults for this EXTRACRANIAL ART; EDT procedure are in COMPLETE BILAT STUDY the res ults section. documented in this encounter Results Carotid Duplex, Bilateral (06/13/2021 2:18 PM EDT) Component Value Ref Test Analysis Performed At [facility] Range Method Time Signature VB Text Department: Vascular Surgery Lab [facility]AS[facility] Report Patient: [id number] (REESE HSU) CPT: 39905 ICD10: I63.9 Referring Physician: NIKUNJ BARAHONA ?? Phone: Indications: Globus sensation, dysphagia , left-sided weakness, ptosis, concern for stroke. ICD10 Diagnosis Code: I63.9 Findings: ICA Proximal, Right ? PSV (cm/s): 49 ? EDV (cm/s): 15 ? ICA/CCA: 0.7 ? Plaque Structure: Echogenic ? Plaque Surface: Irregular ? %Stenosis: <15% ICA Distal, Right ? PSV (cm/s): 59 ? EDV (cm/s): 23 ? ICA/CCA: 0.8 CCA Distal, Right ? PSV (cm/s): 70 ? EDV (cm/s): 15 CCA Middle, Right ? %Stenosis: Minimal CCA Proximal, Right ? PSV (cm/s): 52 ? EDV (cm/s): 8 External Carotid Artery, Right ? PSV (cm/s): 88 ? EDV (cm/s): 10 ? %Stenosis: <50% Vertebral, Right ? PSV (cm/s): 31 ? EDV (cm/s): 5 ? Direction of Flow: Antegrade ICA Proximal, Left ? PSV (cm/s): 58 ? EDV (cm/s): 24 ? ICA/CCA: 0.8 ? Plaque Structure: Echogenic ? Plaque Surface: Irregular ? %Stenosis: <15% ICA Distal, Left ? PSV (cm/s): 75 ? EDV (cm/s): 26 ? ICA/CCA: 1.0 CCA Distal, Left ? PSV (cm/s): 72 ? EDV (cm/s): 16 CCA Middle, Left ? %Stenosis: Minimal CCA Proximal, Left ? PSV (cm/s): 114 ? EDV (cm/s): 19 External Carotid Artery, Left ? PSV (cm/s): 84 ? EDV (cm/s): 10 ? %Stenosis: <50% Vertebral, Left ? PSV (cm/s): 50 ? EDV (cm/s): 18 ? Direction of Flow: Antegrade Interpretation: RIGHT: A thin layer of circumferential p laque is present in the common carotid artery causing minimal stenosis. There is minimal irregular plaque in the proximal internal carotid artery causing < 15% stenosi s when compared to the more distal internal carotid artery. The bifurcation level is in the mid neck. LEFT: A thin layer of circumferential plaque is present in the common carotid artery causing minimal stenosis. There is minimal irregular plaque in the proximal internal carotid artery causing < 15% stenosi s when compared to the more distal internal carotid artery. The bifurcation level is in the mid neck. Vertebral Artery Data: Patent vertebral arteries with normal antegrade Doppler waveforms and velocities bilaterally. Comparison: ??No previous study in our vascular lab da tabase for comparison. Electronically Signed by: LEXUS ELMORE on 2021-06-14 09: 57:52 AM VB Text End of Report [facility] Report Specimen (Source) Anatomical Collection Method Collection Time Re ceived Time Location / / Volume Laterality 06/13/2021 2:18 PM EDT Nikunj Child APRN VASCULAR ORDERABLES Performing Organization Address City/State/ZIP Code Phon e Number [facility] documented in this encounter Visit Diagnoses Diagnosis Ischemic stroke documented in this encounter Care Teams Ticket Speculator Relationship Specialty Start Date End Date Anna Mullen MD PCP - General 12/03/10 [address] [place] [address] documented as of this encounter
--- OUTSIDE RECORDS SUMMARY | 2022-03-13 18:24 | XMS_ITS | Encounter Summary ---
:1965 Author Organization [facility] [place] [address] Care Team Providers Name Role Phone Anna Mullen MD Primary Care Provider Reason for Visit Reason Comments Medication Refill Encounter Details Date Type Department Care Team Description 05/16/2021 Refill Solid Organ Transplant at Eriberto Emery MD [facility] ankit [place] [address] [place] [address] [phone] (Wo rk) Social History Tobacco Use Types [...] on filedocumented in this encounter Care Teams Mechanical Equipment Sales Engineer Relationship Specialty Start Date End Date Anna Mullen MD PCP - General 12/03/10 [address] [place], [place] [address] documented as of this encounter
--- OUTSIDE RECORDS SUMMARY | 2022-03-13 18:24 | XMS_ITS | Encounter Summary ---
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 HC SARS-COV-2 SPIKE Routine 01/25/2021 8:24 AM Encounter for R esults for this ANTIBODY EDT long-term (current) procedur e are in use of other the results medications section. HEMOGRAM Routine 01/25/2021 8:24 AM Pancreas replaced Resu lts for this EDT by transplant procedure are in SOB (shortness of the result s breath) section. DIFFERENTIAL, Routine 01/25/2021 8:24 AM Pancreas replaced Res ults for this AUTOMATED EDT by transplant procedure are in SOB (shortness of the result s breath) section. HC FK-506 (TACROLIMUS) Routine 01/25/2021 8:24 AM Pancreas rep laced Results for this EDT by transplant procedure are in SOB (shortness of the result s breath) section. HC RETIC,AUTO INCLUDES Routine 01/25/2021 8:24 AM Pancreas rep laced Results for this RETHE & IRF EDT by transplant procedure are in SOB (shortness of the result s breath) section. HC CBC,PLT & AUTO DIFF Routine 01/25/2021 8:24 AM Pancreas rep laced EDT by transplant SOB (shortness of breath) HC URIC ACID, SERUM Routine 01/25/2021 8:24 AM Pancreas replac ed Results for this EDT by transplant procedure are in SOB (shortness of the result s breath) section. HC PHOSPHORUS, SERUM Routine 01/25/2021 8:24 AM Pancreas repla [place] Results for this EDT by transplant procedure are in SOB (shortness of the result s breath) section. HC MAGNESIUM, SERUM Routine 01/25/2021 8:24 AM Pancreas replac ed Results for this EDT by transplant procedure are in SOB (shortness of the result s breath) section. HC LIPASE Routine 01/25/2021 8:24 AM Pancreas replaced Resu lts for this EDT by transplant procedure are in SOB (shortness of the result s breath) section. HC HEMOGLOBIN A1C Routine 01/25/2021 8:24 AM Pancreas replaced Results for this EDT by transplant procedure are in Encounter for the results long-term (current) section. use of other medications HC CHOLESTEROL Routine 01/25/2021 8:24 AM Pancreas replaced Re sults for this EDT by transplant procedure are in SOB (shortness of the result s breath) section. HC AMYLASE Routine 01/25/2021 8:24 AM Pancreas replaced Resu lts for this EDT by transplant procedure are in SOB (shortness of the result s breath) section. COMPREHENSIVE Routine 01/25/2021 8:24 AM Pancreas replaced Res ults for this METABOLIC PANEL EDT by transplant procedure are in (NON-FASTING) SOB (shortness of the resul ts breath) section. documented in this encounter Results Urinalysis with reflex Culture (01/25/2021 8:33 AM EDT) [facility] Method Time Signature Glucose UA Negative Negative [facility] mg/dL [facility] Protein UA Negative Negative [facility] mg/dL [facility] Bilirubin UA Negative Negative [facility] mg/dL [facility] Comment: Clinical correlation required for positi ve Urine Bilirubin results as false positive may occur with some drugs and d rug related products. If a false positive is suspected a serum total bili sinha should be considered if clinically indicated. Urobilinogen UA Normal Normal mg/dL [facility] pH UA 7.0 5.0 - 8.0 [facility] Blood UA Negative Negative mg/dL [facility] Ketones UA Negative Negative mg/dL [facility] Nitrite UA Negative Negative [facility] Leukocytes UA Negative Negative [facility] Appearance UA Clear Clear [facility] Spec [place] UA 1.010 1.006 - 1.030 [facility] Color UA Yellow Yellow [facility] Culture Reflexed No [facility] Specimen Anatomical Collection Method Collection Time Receive d Time (Source) Location / / Volume Laterality Clean Catch 01/25/2021 8:33 AM 8:39 Urine EDT AM EDT Resulting Agency Comment Spec In Lab Eriberto Melgar MD URINE ORDERABLES Performing Organization Address City/State/[place] [address] (ABNORMAL) Differential, Automated (01/25/2021 8:24 AM EDT) [facility] Method Time Signature Neutrophils % 43.8 % [facility] Neutr Abs (ANC) 3.31 1.70 - [facility] 6.10 [facility] x10(3)/[facility] LABORATORY Lymphocytes % 43.5 % [facility] Lymphocytes Abs 3.3 (H) 0.9 - 3.2 [facility] x10(3)/[facility] LABORATORY Monocytes % 8.6 % [facility] Monocyte Abs 0.6 0.3 - 0.9 [facility] x10(3)/[facility] LABORATORY Eosinophils % 3.1 % [facility] Eosinophils Abs 0.2 0.0 - 0.4 [facility] x10(3)/[facility] LABORATORY Basophils % 0.7 % [facility] Basophils Abs 0.0 0.0 - 0.1 [facility] x10(3)/[facility] LAB[facility]ATORY Immature Gran % 0.30 % [facility] Comment: Immature granulocytes(IG's)percentage an d absolute count will include metamyelocytes, myelocytes, and promyelo cytes. Blood smears from CBCs yielding IG's will be scanned manually for concor dance. If this scan disagrees with the automated IG or if promyelocytes are not ed, a manual differential will be performed. Kym Gran Abs 0.02 0.00 - 0.04 x10(3)/[facility] Specimen Anatomical Collection Method Collection Time Receive d Time (Source) Location / / Volume Laterality Blood 01/25/2021 8:24 AM 8:40 EDT AM EDT Resulting Agency Comment Spec In Lab Eriberto Melgar MD HEMATOLOGY ORDERABLES Performing Organization Address City/State/[place] [address] Hemogram (01/25/2021 8:24 AM EDT) P athologist Signature WBC 7.5 4.0 - 9.5 [facility] x10(3)/[facility] LABORATORY RBC 4.97 4.58 - [facility] 5.54 [facility] x10(6)/[facility] LABORATORY Hemoglobin 15.0 13.7 - [facility] 16.5 gm/dL [facility] Hematocrit 43.7 40.5 - [facility] 48.5 % [facility] MCV 87.9 82.9 - [facility] 93.[address] [facility] LABORATORY MCH 30.2 27.5 - [facility] [place] 32.1 pg [facility] MCHC 34.3 32.0 - [facility] [place] 35.7 gm/dL [facility] Platelets 220 145 - 357 [facility] x10(3)/[facility] LABORATORY RDWSD 40.3 36.0 - [facility] [place] [address] [facility] LABORATORY RDWCV 12.6 11.4 - [facility] 13.8 % [facility] MPV 10.3 7.6 - 12.9 [facility] LABORATORY nRBC % Auto 0.0 % [facility] nRBC Abs Auto 0.000 0.000 - [facility] 0.000 [facility] x10(3)/[facility] LABORATORY Specimen Anatomical Collection Method Collection Time Receive d Time (Source) Location / / Volume Laterality Blood 01/25/2021 8:24 AM 1 8:40 EDT AM EDT Resulting Agency Comment Spec In Lab Eriberto Melgar MD HEMATOLOGY ORDERABLES Performing Organization Address City/[facility]/ZIP [place] [address] Tacrolimus level (01/25/2021 8:24 AM EDT) P athologist Signature Tacrolimus Lvl 10.4 ng/mL [facility] Comment: Please be advised that as of 09/04/2020 th e methodology for tacrolimus testing has changed from a liquid chromatography tandem mass spectrometry platform to an electrochemiluminescence immunoassay format. Specimen Anatomical Collection Method Collection Time Receive d Time (Source) Location / / Volume Laterality Blood 01/25/2021 8:24 AM 8:40 EDT AM EDT Resulting Agency Comment Spec In Lab Eriberto Melgar MD CHEMISTRY ORDERABLES Performing Organization Address City/[facility]/ZIP [place] [address] Comprehensive metabolic panel (non-fasting) (01/25/2021 8:24 AM EDT) P athologist Signature Glucose Lvl 100 65 - 199 [facility] mg/dL [facility] Comment: Diabetes: >=200 mg/dL plus symp toms BUN 15 10 - 20 mg/dL [facility] Creatinine 1.07 0.80 - 1.50 mg/dL [facility] Sodium 136 135 - 145 mmol/L [facility] Potassium 4.4 3.5 - 5.0 mmol/L [facility] Comment: Please note: ??Patients with WBC >100,00 0 may have falsely elevated Potassium levels. ??For accurate Potassium quantif ication in these patients send serum separator tube (gold top) for subsequent determinations. ??Contact the Clinical Chemistry Laboratory if there are any qu estions. Chloride 99 98 - 107 mmol/L [facility] CO2 28 22 - 31 mmol/L [facility] Anion Gap 9 5 - 15 mmol/L [facility] Calcium 10.0 8.5 - 10.5 mg/dL [facility] Total Protein 7.7 6.1 - 8.0 gm/dL [facility] Albumin 4.8 3.2 - 5.2 gm/dL [facility] AST 28 0 - 39 unit/L [facility] ALT 24 0 - 55 unit/L [facility] Alk Phos 122 40 - 130 unit/L [facility] Total Bilirubin 0.7 0.2 - 1.3 mg/dL [facility] Estimated GFR 79 >=60 mL/min/1.73 m?? [facility] Comment: This patient? s estimated glomerular filtration rate (eGFR) is between 79 mL/min/1.73 m2 (patients with less muscl e mass per kg body weight) and 91 mL/min/1.73 m2 (patients with more muscl e [...] (Source) Location / / Volume Laterality Blood 01/25/2021 8:24 AM 8:40 EDT AM EDT Resulting Agency Comment Spec In Lab Eriberto Melgar MD CHEMISTRY ORDERABLES Performing Organization Address City/[facility]/ZIP Code Phon e Number [address] Lipase (01/25/2021 8:24 AM EDT) P athologist Signature Lipase 26 0 - 60 [facility] unit/L [facility] Specimen Anatomical Collection Method Collection Time Receive d Time (Source) Location / / Volume Laterality Blood 01/25/2021 8:24 AM 8:40 EDT AM EDT Resulting Agency Comment Spec In Lab Eriberto Melgar MD CHEMISTRY ORDERABLES Performing Organization Address City/[facility]/ZIP Code Phon e Number [address] Amylase (01/25/2021 8:24 AM EDT) P athologist Signature Amylase 57 28 - 100 [facility] unit/L [facility] Specimen Anatomical Collection Method Collection Time Receive d Time (Source) Location / / Volume Laterality Blood 01/25/2021 8:24 AM 8:40 EDT AM EDT Resulting Agency Comment Spec In Lab Eriberto Melgar MD CHEMISTRY ORDERABLES Performing Organization Address City/[facility]/ZIP [place] [address] Uric acid (01/25/2021 8:24 AM EDT) P athologist Signature Uric Acid 5.5 3.5 - 8.5 [facility] mg[facility] Specimen Anatomical Collection Method Collection Time Receive d Time (Source) Location / / Volume Laterality Blood 01/25/2021 8:24 AM 8:40 EDT AM EDT Resulting Agency Comment Spec In Lab Eriberto Melgar MD CHEMISTRY ORDERABLES Performing Organization Address City/State/ZIP [place] [address] Cholesterol, total (01/25/2021 8:24 AM EDT) athologist Signature Chol, Total 128 mg/dL [facility] Comment: Lower Risk: <200 mg/dL Average Risk: 200-239 mg/dL Higher Risk: >ry=016 mg/dL Lipid Interpretation See Note [facility] Comment: Lipid management should be guided by a p atient? s ASCVD risk, goals and preferences. ACC/AHA Guidelines recommend high intens ity statin if clinical ASCVD or LDL greater than or equal to 190 mg/dL. [email or web address]/RAX-HLP-Ukrkzzziz Adults aged 40-75 with LDL 70-189 mg/dL should have their 10 year ASCVD risk estimated with the ACC/AHA ASCVD risk es timator http://tools.acc.org/JKREE-Jvgv-Cmvqbmny r/ Statin should be discussed if risk [...] (Source) Location / / Volume Laterality Blood 01/25/2021 8:24 AM 8:40 EDT AM EDT Resulting Agency Comment Spec In Lab Eriberto Melgar MD CHEMISTRY ORDERABLES Performing Organization Address City/[facility]/ZIP [place] [address] Phosphorus (01/25/2021 8:24 AM EDT) athologist Signature Phosphorus 3.7 2.5 - 4.5 [facility] mg/dL [facility] Specimen Anatomical Collection Method Collection Time Receive d Time (Source) Location / / Volume Laterality Blood 01/25/2021 8:24 AM 8:40 EDT AM EDT Resulting Agency Comment Spec In Lab Eriberto Melgar MD CHEMISTRY ORDERABLES Performing Organization Address City/[facility]/ZIP Code Phon e Number [address] Magnesium (01/25/2021 8:24 AM EDT) P athologist Signature Magnesium 0.71 0.69 - 1.07 [facility] mmol/L [facility] Specimen Anatomical Collection Method Collection Time Receive d Time (Source) Location / / Volume Laterality Blood 01/25/2021 8:24 AM 8:40 EDT AM EDT Resulting Agency Comment Spec In Lab Eriberto Melgar MD CHEMISTRY ORDERABLES Performing Organization Address City/[facility] [place] [address] Reticulocyte Count (01/25/2021 8:24 AM EDT) P athologist Signature Retic Ct % 1.3 0.7 - 2.6 [facility] Retic Ct Abs 0.070 0.030 - [facility] 0.120 [facility] x10(6)/[facility] LABORATORY Immature Retic% 10.1 0.0 - 15.6 [facility] Reticulated Hgb 33.3 31.3 - [facility] 40.2 pg [facility] Specimen Anatomical Collection Method Collection Time Receive d Time (Source) Location / / Volume Laterality Blood 01/25/2021 8:24 AM 8:40 EDT AM EDT Resulting Agency Comment Spec In Lab Eriberto Melgar MD HEMATOLOGY ORDERABLES Performing Organization Address City/[facility]/ZIP Code Phon e Number [address] COVID-19 El Antibody (01/25/2021 8:24 AM EDT) Analysis Performed At Patho logist Time Signature SARS-CoV-2 Detected [facility] Comment: This is a total antibody assay to the sp bambi protein of SARS-CoV-2. It does not distinguish between IgG and IgM antibodi es to SARS-CoV-2. This test will detect antibodies made against the spike protei n due to vaccination or from a previous infection. Results cannot be used to diagnose acute SARS-CoV-2 (Severe acute respiratory syndrome coronavirus 2, also known as novel coronavirus or 2019-nCoV) infection. A 'Not Detected' result does not rule ou t SARS-CoV-2 infection, particularly in those who have been in contact with the virus. Follow-up testing with a molecular diagnostic test to SARS-CoV-2 should be considered for individuals with symptoms of active SARS-CoV-2 infec tion. A 'Detected' result cannot be interprete d as conclusive evidence of protective immunity to the SARS-CoV-2 virus. Detect ion may be due to a past infection with yor-DGNB-ZvE-2 coronavirus strains, such as coronavirus HKU1, NL63, OC43, or 229E. This test was performed using the Elecsy s Mxzh-GYLP-YiL-2 S total antibody assay on the Nora Jessica e801 analyzer. This serology test is available following FDA Emergency Use Authorizatio n, however it has not been reviewed by the FDA, nor is it FDA cleared or approv ed. The performance characteristics of this test were determined by the [facility] ent of Pathology and Laboratory Medicine at [facility]. The laboratory is certified under the Clinical Laboratory Improvemen t Amendments of 1988 (CLIA), 42 U.S.C. section 263a, to perform high complexity tests. Results should not be used as the sole b asis to diagnose or exclude SARS-CoV-2 infection, to inform infection status, o r to screen donated blood. CDC COVID-19 criteria for testing on hum an specimens and clinical management guidance information are available at th e CDC Coronavirus Disease 2019 (COVID-19) webpage under Information fo r Healthcare Professionals (https://www.cdc.gov/coronavirus/2019-nc ov/hcp/index.html) Additional information about this and ot her EUA tests can be found in provider and patient fact sheets at the following FDA website: https://www.fda.gov/medical-devices/ynqhszpmeiz-rvkzhgw-1867-anysd-11-rklpigzvd- ynb-qhtvzrvejgfcma-gqsbkgp-devices/psfej-lqwojwijjin-vljz Specimen Anatomical Collection Method Collection Time Receive d Time (Source) Location / / Volume Laterality Blood 01/25/2021 8:24 AM 8:40 EDT AM EDT Eriberto Melgar MD CHEMISTRY ORDERABLES Performing Organization Address City/State/[place] [address] Hemoglobin A1c (01/25/2021 8:24 AM EDT) athologist Signature Hemoglobin A1C 5.4 4.3 - 5.6 [facility] Comment: Reference Range: 4.3 - [...] Mellitus, Diabetes Care 2013; 36: Suppl. 1, S67-94 Est Avg Gluc 107 mg/dL [facility] Comment: eAG equivalents for HbA1c percentages: HbA1c(%) ?eAG(mg/dL) 6.0 ?126 6.5 ?140 7.0 ?154 7.5 ?169 8.0 ?183 8.5 ?197 9.0 ?212 9.5 ?226 10.0 ? 240 Limitations: The eAG calculation has not been validated on women, individuals below 18 years old and above 70 years old, and individuals with hemoglobinopathies. Additional resources are available on ADA website. Edinson GRISSOM, Nathaniel J, Ari R, et al. ??Tr anslating the A1C assay into estimated average glucose values. ??Diabetes Care 2008:31(8):8411-6287. 

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
--- OUTSIDE RECORDS SUMMARY | 2022-03-13 18:24 | XMS_ITS | Encounter Summary ---
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 HEMOGRAM Routine 04/16/2021 9:40 AM Pancreas replaced Resu lts for this EDT by transplant procedure are in Immunosuppression the result s section. DIFFERENTIAL, Routine 04/16/2021 9:40 AM Pancreas replaced Res ults for this AUTOMATED EDT by transplant procedure are in Immunosuppression the result s section. HC FK-506 (TACROLIMUS) Routine 04/16/2021 9:40 AM Pancreas rep laced Results for this EDT by transplant procedure are in Immunosuppression the result s section. HC C PEPTIDE Routine 04/16/2021 9:40 AM Pancreas replaced Resu lts for this EDT by transplant procedure are in Immunosuppression the result s section. HC RETIC,AUTO INCLUDES Routine 04/16/2021 9:40 AM Pancreas rep laced Results for this RETHE & IRF EDT by transplant procedure are in Immunosuppression the result s section. HC CBC,PLT & AUTO DIFF Routine 04/16/2021 9:40 AM Pancreas rep laced EDT by transplant Immunosuppression HC URIC ACID, SERUM Routine 04/16/2021 9:40 AM Pancreas replac ed Results for this EDT by transplant procedure are in Immunosuppression the result s section. HC PHOSPHORUS, SERUM Routine 04/16/2021 9:40 AM Pancreas repla [place] Results for this EDT by transplant procedure are in Immunosuppression the result s section. HC MAGNESIUM, SERUM Routine 04/16/2021 9:40 AM Pancreas replac ed Results for this EDT by transplant procedure are in Immunosuppression the result s section. HC LIPASE Routine 04/16/2021 9:40 AM Pancreas replaced Resu lts for this EDT by transplant procedure are in Immunosuppression the result s section. HC VENIPUNCTURE Routine 04/16/2021 9:40 AM Pancreas replaced R esults for this EDT by transplant procedure are in Encounter for the results long-term (current) section. use of other medications HC CHOLESTEROL Routine 04/16/2021 9:40 AM Pancreas replaced Re sults for this EDT by transplant procedure are in Immunosuppression the result s section. HC AMYLASE Routine 04/16/2021 9:40 AM Pancreas replaced Resu lts for this EDT by transplant procedure are in Immunosuppression the result s section. COMPREHENSIVE Routine 04/16/2021 9:40 AM Pancreas replaced Res ults for this METABOLIC PANEL EDT by transplant procedure are in (NON-FASTING) Immunosuppression the resul ts section. documented in this encounter Results Urinalysis with reflex Culture (04/16/2021 9:45 AM EDT) [facility] Method Time Signature Glucose UA Negative Negative [facility] mg[facility]dL [facility] Protein UA Negative Negative [facility] mg/dL [facility] Bilirubin UA Negative Negative [facility] mg/dL [facility] Comment: Clinical correlation required for positi ve Urine Bilirubin results as false positive may occur with some drugs and d rug related products. If a false positive is suspected a serum total bili sinha should be considered if clinically indicated. Urobilinogen UA Normal Normal mg/dL [facility] pH UA 7.0 5.0 - 8.0 [facility] Blood UA Negative Negative mg/dL [facility] Ketones UA Negative Negative mg/dL [facility] Nitrite UA Negative Negative [facility] Leukocytes UA Negative Negative [facility] LABOR[facility]ORY Appearance UA Clear Clear [facility] Spec Savage UA 1.010 1.005 - 1.030 [facility] Color UA Yellow Yellow [facility] Culture Reflexed No [facility] Specimen Anatomical Collection Method Collection Time Receive d Time (Source) Location / / Volume Laterality Clean Catch 04/16/2021 9:45 AM 9:58 Urine EDT AM EDT Resulting Agency Comment Spec In Lab Eriberto Melgar MD URINE ORDERABLES Performing Organization Address City/State/ZIP Code Phon e Number [place] [id number] [facility] [address] Differential, Automated (04/16/2021 9:40 AM EDT) athologist Signature Neutrophils % 46.2 % [facility] Neutr Abs (ANC) 3.20 1.70 - [facility] 6.10 [facility] x10(3)/[facility] LABORATORY Lymphocytes % 41.7 % [facility] Lymphocytes Abs 2.9 0.9 - 3.2 [facility] x10(3)/[facility] LABORATORY Monocytes % 8.2 % [facility] Monocyte Abs 0.6 0.3 - 0.9 [facility] x10(3)/[facility] LABORATORY Eosinophils % 2.9 % [facility] Eosinophils Abs 0.2 0.0 - 0.4 [facility] x10(3)/[facility] LABORATORY Basophils % 0.6 % [facility] Basophils Abs 0.0 0.0 - 0.1 [facility] x10(3)/[facility] LABORATORY Immature Gran % 0.40 % [facility] Comment: Immature granulocytes(IG's)percentage an d absolute count will include metamyelocytes, myelocytes, and promyelo cytes. Blood smears from CBCs yielding IG's will be scanned manually for concor dance. If this scan disagrees with the automated IG or if promyelocytes are not ed, a manual differential will be performed. Kym Gran Abs 0.03 0.00 - 0.04 x10(3)/[facility] Specimen Anatomical Collection Method Collection Time Receive d Time (Source) Location / / Volume Laterality Blood 04/16/2021 9:40 AM 9:49 EDT AM EDT Resulting Agency Comment Spec In Lab Eriberto Melgar MD HEMATOLOGY ORDERABLES Performing Organization Address City/State/[place] [address] (ABNORMAL) Hemogram (04/16/2021 9:40 AM EDT) Analysis Performed At Patho logist Time Signature WBC 6.9 4.0 - 9.5 [facility] x10(3)/[facility] LABORATORY RBC 4.54 (L) 4.58 - [facility] 5.54 [facility] x10(6)/[facility] LABORATORY Hemoglobin 13.8 13.7 - [facility] 16.5 gm/dL [facility] Hematocrit 40.2 (L) 40.5 - [facility] 48.5 % [facility] MCV 88.5 82.9 - [facility] 93.1 [facility] MCH 30.4 27.5 - [facility] 32.[address] [facility] MCHC 34.3 32.0 - [facility] 35.7 gm/dL [facility] Platelets 202 145 - 357 [facility] x10(3)/[facility] LABORATORY RDWSD 41.6 36.0 - [facility] 45.0 [facility] LABOR[facility]ORY RDWCV 12.7 11.4 - [facility] 13.8 % [facility] MPV 10.4 7.6 - 12.9 [facility] LABORATORY nRBC % Auto 0.0 % [facility] nRBC Abs Auto 0.000 0.000 - [facility] 0.000 [facility] x10(3)/[facility] LABORATORY Specimen Anatomical Collection Method Collection Time Receive d Time (Source) Location / / Volume Laterality Blood 04/16/2021 9:40 AM 9:49 EDT AM EDT Resulting Agency Comment Spec In Lab Eriberto Melgar MD HEMATOLOGY ORDERABLES Performing Organization Address City/[facility]/ZIP Code Phon e Number [address] Tacrolimus level (04/16/2021 9:40 AM EDT) athologist Signature Tacrolimus Lvl 8.7 ng/mL [facility] Comment: Trough therapeutic range [...] (Source) Location / / Volume Laterality Blood 04/16/2021 9:40 AM 9:49 EDT AM EDT Resulting Agency Comment Spec In Lab Eriberto Melgar MD CHEMISTRY ORDERABLES Performing Organization Address City/State/ZIP Code Phon e Number [address] C-peptide (04/16/2021 9:40 AM EDT) athologist Signature C-Peptide 2.8 1.1 - 4.4 [facility] ng/mL [facility] Comment: As of December 05, 2020, C-Peptide testing h as moved from the Thumb Industrial Maintenance Manager to the DOZ Jessica. Please note the updated reference intervals. Specimen Anatomical Collection Method Collection Time Receive d Time (Source) Location / / Volume Laterality Blood 04/16/2021 9:40 AM 9:49 EDT AM EDT Resulting Agency Comment Spec In Lab Eriberto Melgar MD CHEMISTRY ORDERABLES Performing Organization Address City/State/[place] [address] (ABNORMAL) Comprehensive metabolic panel (non-fasting) (04/16/2021 9:40 AM EDT) athologist Signature Glucose Lvl 102 65 - 199 [facility] mg/dL [facility] Comment: Diabetes: >=200 mg/dL plus symp toms BUN 17 10 - 20 mg/dL [facility] Creatinine 1.10 0.80 - 1.50 mg/dL [facility] Sodium 134 (L) 135 - 145 mmol/L [facility] Potassium 4.1 3.5 - 5.0 mmol/L [facility] Comment: Please note: ??Patients with WBC >100,00 0 may have falsely elevated Potassium levels. ??For accurate Potassium quantif ication in these patients send serum separator tube (gold top) for subsequent determinations. ??Contact the Clinical Chemistry Laboratory if there are any qu estions. Chloride 97 (L) 98 - 107 mmol/L [facility] CO2 29 22 - 31 mmol/L [facility] Anion Gap 8 5 - 15 mmol/L [facility] Calcium 9.4 8.5 - 10.5 mg/dL [facility] Total Protein 7.1 6.1 - 8.0 gm/dL [facility] Albumin 4.5 3.2 - 5.2 gm/dL [facility] AST 20 0 - 39 unit/L [facility] ALT 22 0 - 55 unit/L [facility] Alk Phos 115 40 - 130 unit/L [facility] Total Bilirubin 0.9 0.2 - 1.3 mg/dL [facility] Estimated GFR 76 >=60 mL/min/1.73 m?? [facility] Comment: This patient? s estimated glomerular filtration rate (eGFR) is between 76 mL/min/1.73 m2 (patients with less muscl e mass per kg body weight) and 88 mL/min/1.73 m2 (patients with more muscl e [...] (Source) Location / / Volume Laterality Blood 04/16/2021 9:40 AM 9:49 EDT AM EDT Resulting Agency Comment Spec In Lab Eriberto Melgar MD CHEMISTRY ORDERABLES Performing Organization Address City/[facility]/ZIP Code Phon e Number [address] Lipase (04/16/2021 9:40 AM EDT) P athologist Signature Lipase 23 0 - 60 [facility] LABORATORY Specimen Anatomical Collection Method Collection Time Receive d Time (Source) Location / / Volume Laterality Blood 04/16/2021 9:40 AM 9:49 EDT AM EDT Resulting Agency Comment Spec In Lab Eriberto Melgar MD CHEMISTRY ORDERABLES Performing Organization Address City/[facility]/ZIP [facility] Phon e Number [address] Amylase (04/16/2021 9:40 AM EDT) P athologist Signature Amylase 53 28 - 100 [facility] LABORATORY Specimen Anatomical Collection Method Collection Time Receive d Time (Source) Location / / Volume Laterality Blood 04/16/2021 9:40 AM 9:49 EDT AM EDT Resulting Agency Comment Spec In Lab Eriberto Melgar MD CHEMISTRY ORDERABLES Performing Organization Address City/State/ZIP Code Phon e Number [address] Uric acid (04/16/2021 9:40 AM EDT) P athologist Signature Uric Acid 5.8 3.5 - 8.5 [facility] mg/dL [facility] Specimen Anatomical Collection Method Collection Time Receive d Time (Source) Location / / Volume Laterality Blood 04/16/2021 9:40 AM 9:49 EDT AM EDT Resulting Agency Comment Spec In Lab Eriberto Melgar MD CHEMISTRY ORDERABLES Performing Organization Address City/[facility]/ZIP Code Phon e Number [address] Cholesterol, total (04/16/2021 9:40 AM EDT) athologist Signature Chol, Total 121 mg/dL [facility] Comment: Lower Risk: <200 mg/dL Average Risk: 200-239 mg/dL Higher Risk: >ft=515 mg/dL Lipid Interpretation See Note [facility] Comment: Lipid management should be guided by a p atient? s ASCVD risk, goals and preferences. ACC/AHA Guidelines recommend high intens ity statin if clinical ASCVD or LDL greater than or equal to 190 mg/dL. http://DadShed.com/VMO-BMU-Rfbeflpkl Adults aged 40-75 with LDL 70-189 mg/dL should have their 10 year ASCVD risk estimated with the ACC/AHA ASCVD risk es timator http://tools.acc.org/UPIHI-Gkox-Tcplckjt r/ Statin should be discussed if risk [...] (Source) Location / / Volume Laterality Blood 04/16/2021 9:40 AM 9:49 EDT AM EDT Resulting Agency Comment Spec In Lab Eriberto Melgar MD CHEMISTRY ORDERABLES Performing Organization Address City/[facility]/[place] [address] Phosphorus (04/16/2021 9:40 AM EDT) P athologist Signature Phosphorus 3.1 2.5 - 4.5 [facility] mg/dL [facility] Specimen Anatomical Collection Method Collection Time Receive d Time (Source) Location / / Volume Laterality Blood 04/16/2021 9:40 AM 9:49 EDT AM EDT Resulting Agency Comment Spec In Lab Eriberto Melgar MD CHEMISTRY ORDERABLES Performing Organization Address City/[facility]/[place] [address] (ABNORMAL) Magnesium (04/16/2021 9:40 AM EDT) athologist Signature Magnesium 0.65 (L) 0.69 - 1.07 [facility] mmol/L [facility] Specimen Anatomical Collection Method Collection Time Receive d Time (Source) Location / / Volume Laterality Blood 04/16/2021 9:40 AM 9:49 EDT AM EDT Resulting Agency Comment Spec In Lab Eriberto Melgar MD CHEMISTRY ORDERABLES Performing Organization Address City/[facility]/ZIP Code Phon e Number [address] Reticulocyte Count (04/16/2021 9:40 AM EDT) P athologist Signature Retic Ct % 1.4 0.7 - 2.6 [facility] Retic Ct Abs 0.060 0.030 - [facility] 0.120 [facility] x10(6)/[facility] LABORATORY Immature Retic% 8.7 0.0 - 15.6 [facility] Reticulated Hgb 35.1 31.3 - [facility] 40.2 [facility] LABORATORY Specimen Anatomical Collection Method Collection Time Receive d Time (Source) Location / / Volume Laterality Blood 04/16/2021 9:40 AM 9:49 EDT AM EDT Resulting Agency Comment Spec In Lab Eriberto Melgar MD HEMATOLOGY ORDERABLES Performing Organization Address City/State/[place] [address] Hemoglobin A1c (04/16/2021 9:40 AM EDT) athologist Signature Hemoglobin A1C 5.5 4.3 - 5.6 [facility] Comment: Reference Range: 4.3 - [...] Mellitus, Diabetes Care 2013; 36: Suppl. 1, Q27-73 Est Avg Gluc 111 mg/dL [facility] Comment: eAG equivalents for HbA1c percentages: HbA1c(%) ?eAG(mg/dL) 6.0 ?126 6.5 ?140 7.0 ?154 7.5 ?169 8.0 ?183 8.5 ?197 9.0 ?212 9.5 ?226 10.0 ? 240 Limitations: The eAG calculation has not been validated on women, individuals below 18 years old and above 70 years old, and individuals with hemoglobinopathies. Additional resources are available on [facility] ADA website. Edinson GRISSOM, Nathaniel J, Ari R, et al. ??Tr anslating the A1C assay into estimated average glucose values. ??Diabetes Care 2008:31(8):6604-4395. Specimen Anatomical Collection Method Collection Time Receive d Time (Source) Location / / Volume Laterality Blood 04/16/2021 9:40 AM 9:49 EDT AM EDT Resulting Agency Comment Spec In Lab Eriberto Melgar MD CHEMISTRY ORDERABLES Performing Organization Address City/State/[place] [address] documented in this encounter Visit Diagnoses Diagnosis 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 Encounter for long-term (current) use of other medications Immunosuppression Unspecified disorder of immune mechanism documented in this encounter Care Teams Shell Molder Relationship Specialty Start Date End Date Anna Mullen MD PCP - General 12/03/10 [address] [place] [address] documented as of this encounter
--- OUTSIDE RECORDS SUMMARY | 2022-03-13 18:24 | XMS_ITS | Encounter Summary ---
:1965 Author Organization [facility] [place] [address] Care Team Providers Name Role Phone Anna Mullen MD Primary Care Provider Encounter Details Date Type Department Care Team Description 03/26/2021 Telephone Gastroenterology at [facility] [place] [place] [address] Social History Tobacco Use Types Packs/Day Years Used Date Never Smoker Smokeless Tobacco: Never Used Alcohol Use Standard Drinks/Week Comments No 0 (1 standard drink = 0.6 oz pure alcoho l) history of abuse, stopped 1996 Sex Assigned at Date Recorded Male 05/29/2021 11:28 PM EDT documented as of this encounter Miscellaneous Notes Telephone Encounter - Sabrina Martinez - 03/26/2021 11:49 AM EDT Richard Hsu [id number] Diagnosis/Indication: EGD MAC Within 3 weeks 1. Have you ever had a/an Upper Endoscopy before? Yes: Date 08/15/2015 If yes, did you have any problems with the procedure? Yes: Please Explain: Feels like a big lump What type of sedation was used: IV Conscious Sedation 2. Do you take any blood thinners or have you been diagnosed with a bleeding disorder that increasesyour risk of bleeding with procedures? Yes: Type: PLAVIX 3. Do you have a Pacemaker or Defibrillator device? No 4. Are you a diabetic? No 5. Do you have any Allergies to Eggs, Latex or Medications? Yes: E-DH 6. Do you take any Oral Iron Supplements (Including multi-vitamins)? Yes (Multivitamin) 7. Do you have a history of three or more abdominal surgeries? No 8. Have you had a problem with sedation or anesthesia? No 9. Do you use a c-pap machine or oxygen tank? Neither 10. Do you take prescription narcotic pain medications, including suboxone or methodone? No 11. Do you have a preference regarding the gender of your provider? No Preference 12. Is there any other information you would like to us to note for the provider and nursing team who will perform your case? Yes: TRANSPLANT PATIENT 13. Say to patient: You must have a responsible constitution party who will drive you to your procedure, stay on campus for the entire duration of your procedure, and drive you home from your procedure? *Please Verify the height and weight, and adjust if height and/or weight have changed* Estimated body mass index is 28.48 kg/m?? as calculated from the following: Height as of 08/15/20: 182.9 cm (6'). Weight as of 08/15/20: 95.3 kg (210 lb). *Delete if not needed* Height: 6' Weight: 220 BMI: 29.8 Age:55 y.o. documented in this encounter Plan of Treatment Not on filedocumented as of this encounter Visit Diagnoses Not on filedocumented in this encounter Care Teams Estimating Engineer Relationship Specialty Start Date End Date Anna Mullen MD PCP - General 12/03/10 [address] [place] [address] documented as of this encounter
--- OUTSIDE RECORDS SUMMARY | 2022-03-13 18:24 | XMS_ITS | Encounter Summary ---
:1965 Author Organization [facility] [place] [address] Care Team Providers Name Role Phone Anna Mullen MD Primary Care Provider Reason for Visit Reason Onset Date Comments Medication Refill 07/24/2020 Encounter Details Date Type Department Care Team Description 07/24/2020 Refill Neurology at [facility] Kaitlyn Baltazar APRN [facility] [place] [address] NEUROLOGY DEPT. [phone] [place], [place] [address] (Wo rk) Social History Tobacco [...] on filedocumented in this encounter Care Teams Residential Worker Relationship Specialty Start Date End Date Anna Mullen MD PCP - General 12/03/10 [address] [place], [place] [address] documented as of this encounter
--- OUTSIDE RECORDS SUMMARY | 2022-03-13 18:24 | XMS_ITS | Encounter Summary ---
:1965 Author Organization [facility] [place] [address] Care Team Providers Name Role Phone Anna Mullen MD Primary Care Provider Reason for Referral Diagnostic Test (Routine) - Closed Specialty Diagnoses / Procedures Referred By Contact Refer red To Contact Radiology Diagnoses Ischemic stroke Ni Child APRN [facility] Rad Mri Procedures MRI Angiogram Head wo Contrast (Generic) [facility] [place] [id number] [place] [address] Referral ID Status Reason Start Date Expiration Date Visits V isits Requested Authorized [id number] Closed Specialty 05/31/2021 11/29/2022 1 Service Requested Diagnostic Test (Routine) - Closed Specialty Diagnoses / Procedures Referred By Contact Refer red To Contact Radiology Diagnoses Ischemic stroke Ni Child APRN [facility] Rad Mri Procedures MRI Brain wo Contrast [facility] [place] [address] [place] [address] Referral ID Status Reason Start Date Expiration Date Visits V isits Requested Authorized [id number] Closed Specialty 07/02/2021 08/30/2021 1 1 Service Requested Reason for Visit Diagnostic Test (Routine) - Closed Specialty Diagnoses / Procedures Referred By Contact Refer red To Contact Radiology Diagnoses Ischemic stroke Ni Child, FRANCISCA [facility] Rad Mri Procedures MRI Angiogram Head wo Contrast (Generic) [facility] [place] [address] [place] [address] Referral ID Status Reason Start Date Expiration Date Visits V isits Requested Authorized [id number] Closed Specialty 05/31/2021 11/29/2022 1 1 Service Requested Encounter Details Date Type Department Care Team Description 07/04/2021 [place] [facility] [place] Child, Ischemic stroke [facility] [place] [address] Neurology Dept [phone] [place], [place] [address] Social History Tobacco Use Types [...] Sig Dispensed Refills Start Date End Date fish oil-omega-3 fatty Take 2 g by [...] TAKE 1 TABLET BY 0 07/18 n ([place]) 10-325 mg MOUTH TWICE DAILY Tablet NEEDED [...] mg Capsule BY MOUTH TWICE A DAY Prograf 1 mg Capsule TAKE TWO CAPSULES 90 capsule 11 02/26/20 21 07/09/2021 BY MOUTH in AM and 1 capsule in PM. Pancreas transplant 08/28/2013. ICD code Z94.83 documented as of this encounter Plan of Treatment Not on filedocumented as of this encounter Procedures Procedure Name Priority Date/Time Associated Diagnosis Comme nts MRI HEAD ANGIOGRAM Routine 07/04/2021 8:00 AM Ischemic stroke Results for this WO CONTRAST EDT procedure are i n the results section. MRI BRAIN WO Routine 07/04/2021 8:00 AM Ischemic stroke Result s for this CONTRAST EDT procedure are i n the results section. documented in this encounter Results MRI Angiogram Head wo Contrast (Generic) (07/04/2021 8:00 AM EDT) Anatomical Region Laterality Modality Head Magnetic Resonance Specimen (Source) Anatomical Location Collection Method / Collectio n Time Received Time / Laterality Volume Impressions 07/04/2021 11:25 AM EDT 1. ??Motion limited examination shows no definite acute infarct or other acute intracranial findings to explain the pat ient's ptosis. 2. ??Limited MRA exam, without obvious o cclusion or aneurysm. I have personally reviewed the image(s) and the resident's interpretation and agree with the findings, Sameera Curran MD at 07/04/2021 11:25 AM Thank you for letting us participate in the care of this patient. ??If you are a health care provider and have any questi ons regarding this report, please contact the number below. ??For patients who have questions please contact the health career technical education teacher that requested your imaging first. ? Electronically signed by: Sameera Curran MD, [facility] ([phone]), at 07/04/2021 11:25 AM Narrative 07/04/2021 11:25 AM EDT EXAMINATION: MRI BRAIN WO CONTRAST, MRI ANGIOGRAM HEAD WO CONTRAST (GENERIC) CLINICAL HISTORY: Stroke, follow up Patient with worsening globus sensation, worsening left-sided weakness, ptosis. please assess for recurrent stroke. (acc ession [id number]), Patient with worsening globus sensation, worsening left-sided w eakness, ptosis. 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 Please assess for new stroke/vascular abnormalities. ( accession [id number]) TECHNIQUE: MRA of the head, and MRI of the brain, p erformed without contrast. 3-D MIP reconstructions were created. COMPARISON: Brain MRI dated 08/06/2019. FINDINGS: Brain MRI: The T2 and kcik-hx-[id number] images are laura ewhat limited by motion artifact. No intracranial mass or mass effect. No midline shift. No areas of restricted diffusion to suggest acute infarct. No s usceptibility or hemorrhage. No ventriculomegaly. Normal-appearing orbit s. Major flow voids are preserved. Brain MRA: Within the limitations of the exam, The distal internal carotid arteries remi ear patent. The anterior cerebral arteries appear pa tent. The middle cerebral arteries appear perez nt. The right distal vertebral artery is not well seen. The left distal vertebral artery opacifies normally. The basilar artery appears patent. The posterior cerebral arteries appear p atent. The posterior communicating arteries are not well seen. Procedure Note Sameera Curran MD - 07/04/2021Formatt ing of this note might be different from the original. EXAMINATION: MRI BRAIN WO CONTRAST, MRI ANGIOGRAM HEAD WO CONTRAST (GENERIC) CLINICAL HISTORY: Stroke, follow up Patient with worsening globus sensation, worsening left-sided weakness, ptosis. please assess for recurrent stroke. (acc ession [id number]), Patient with worsening globus sensation, worsening left-sided w eakness, ptosis. 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 Please assess for new stroke/vascular abnormalities. ( accession [id number]) TECHNIQUE: MRA of the head, and MRI of the brain, p erformed without contrast. 3-D MIP reconstructions were created. COMPARISON: Brain MRI dated 08/06/2019. FINDINGS: Brain MRI: The T2 and aixv-qr-kzklsk images are laura ewhat limited by motion artifact. No intracranial mass or mass effect. No midline shift. No areas of restricted diffusion to suggest acute infarct. No s usceptibility or hemorrhage. No ventriculomegaly. Normal-appearing orbit s. Major flow voids are preserved. Brain MRA: Within the limitations of the exam, The distal internal carotid arteries remi ear patent. The anterior cerebral arteries appear pa tent. The middle cerebral arteries appear perez nt. The right distal vertebral artery is not well seen. The left distal vertebral artery opacifies normally. The basilar artery appears patent. The posterior cerebral arteries appear p atent. The posterior communicating arteries are not well seen. IMPRESSION 1. Motion limited examination shows no d efinite acute infarct or other acute intracranial findings to explain the pat ient's ptosis. 2. Limited MRA exam, without obvious occ lusion or aneurysm. I have personally reviewed the image(s) and the resident's interpretation and agree with the findings, Sameera Curran MD at 07/04/2021 11:25 AM Thank you for letting us participate in the care of this patient. If you are a health care provider and have any questi ons regarding this report, please contact the number below. For patients w ho have questions please contact the health career technical education teacher that requested your imaging first. Electronically signed by: Sameera Curran MD, [facility] ([phone]), at 07/04/2021 11:25 AM Ni Child MANAGER INSTRUMENTATION IMG MRI ORDERABLES MRI Brain wo Contrast (07/04/2021 8:00 AM EDT) Anatomical Region Laterality Modality Head Magnetic Resonance Specimen (Source) Anatomical Location Collection Method / Collectio n Time Received Time / Laterality Volume Impressions 07/04/2021 11:25 AM EDT 1. ??Motion limited examination shows no definite acute infarct or other acute intracranial findings to explain the pat ient's ptosis. 2. ??Limited MRA exam, without obvious o cclusion or aneurysm. I have personally reviewed the image(s) and the resident's interpretation and agree with the findings, Sameera Curran MD at 07/04/2021 11:25 AM Thank you for letting us participate in the care of this patient. ??If you are a health care provider and have any questi ons regarding this report, please contact the number below. ??For patients who have questions please contact the health career technical education teacher that requested your imaging first. ? Electronically signed by: Sameera Curran MD, [facility] ([phone]), at 07/04/2021 11:25 AM Narrative 07/04/2021 11:25 AM EDT EXAMINATION: MRI BRAIN WO CONTRAST, MRI ANGIOGRAM HEAD WO CONTRAST (GENERIC) CLINICAL HISTORY: Stroke, follow up Patient with worsening globus sensation, worsening left-sided weakness, ptosis. please assess for recurrent stroke. (acc ession [id number]), Patient with worsening globus sensation, worsening left-sided w eakness, ptosis. 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 Please assess for new stroke/vascular abnormalities. ( accession [id number]) TECHNIQUE: MRA of the head, and MRI of the brain, p erformed without contrast. 3-D MIP reconstructions were created. COMPARISON: Brain MRI dated 08/06/2019. FINDINGS: Brain MRI: The T2 and tcik-aq-hrdkuq images are laura ewhat limited by motion artifact. No intracranial mass or mass effect. No midline shift. No areas of restricted diffusion to suggest acute infarct. No s usceptibility or hemorrhage. No ventriculomegaly. Normal-appearing orbit s. Major flow voids are preserved. Brain MRA: Within the limitations of the exam, The distal internal carotid arteries remi ear patent. The anterior cerebral arteries appear pa tent. The middle cerebral arteries appear perez nt. The right distal vertebral artery is not well seen. The left distal vertebral artery opacifies normally. The basilar artery appears patent. The posterior cerebral arteries appear p atent. The posterior communicating arteries are not well seen. Procedure Note Sameera Curran MD - 07/04/2021Formatt ing of this note might be different from the original. EXAMINATION: MRI BRAIN WO CONTRAST, MRI ANGIOGRAM HEAD WO CONTRAST (GENERIC) CLINICAL HISTORY: Stroke, follow up Patient with worsening globus sensation, worsening left-sided weakness, ptosis. please assess for recurrent stroke. (acc ession [id number]), Patient with worsening globus sensation, worsening left-sided w eakness, ptosis. 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 Please assess for new stroke/vascular abnormalities. ( accession [id number]) TECHNIQUE: MRA of the head, and MRI of the brain, p erformed without contrast. 3-D MIP reconstructions were created. COMPARISON: Brain MRI dated 08/06/2019. FINDINGS: Brain MRI: The T2 and gcbk-xo-aakzvb images are laura ewhat limited by motion artifact. No intracranial mass or mass effect. No midline shift. No areas of restricted diffusion to suggest acute infarct. No s usceptibility or hemorrhage. No ventriculomegaly. Normal-appearing orbit s. Major flow voids are preserved. Brain MRA: Within the limitations of the exam, The distal internal carotid arteries remi ear patent. The anterior cerebral arteries appear pa tent. The middle cerebral arteries appear perez nt. The right distal vertebral artery is not well seen. The left distal vertebral artery opacifies normally. The basilar artery appears patent. The posterior cerebral arteries appear p atent. The posterior communicating arteries are not well seen. IMPRESSION 1. Motion limited examination shows no d efinite acute infarct or other acute intracranial findings to explain the pat ient's ptosis. 2. Limited MRA exam, without obvious occ lusion or aneurysm. I have personally reviewed the image(s) and the resident's interpretation and agree with the findings, Sameera Curran MD at 07/04/2021 11:25 AM Thank you for letting us participate in the care of this patient. If you are a health care provider and have any questi ons regarding this report, please contact the number below. For patients w ho have questions please contact the health career technical education teacher that requested your imaging first. Electronically signed by: Sameera Curran MD, [facility] ([phone]), at 07/04/2021 11:25 AM Ni Child APRN IMG MRI ORDERABLES documented in this encounter Visit Diagnoses Diagnosis Ischemic stroke documented in this encounter Care Teams Green End Worker Relationship Specialty Start Date End Date Anna Mullen MD PCP - General 12/03/10 [address] [place] [address] documented as of this encounter
--- OUTSIDE RECORDS SUMMARY | 2022-03-13 18:24 | XMS_ITS | Encounter Summary ---
:1965 Author Organization [facility] Address [address] [place] [address] Care Team Providers Name Role Phone Anna Mullen MD Primary Care Provider Encounter Details Date Type Department Care Team Description 07/04/2021 Orders Only Pul[place] [facility] [place] Mauricio Villagran MD SOB ([facility]) [place] [address] Pulmonary Medicine [phone] [place] [id number] Social History Tobacco Use Types Packs/Day Years [...] Pulmonary Function PFT Routine SOB (shortness of petr th) Expected: 07/11/2021, Testing Expires: 2022 documented as of this encounter Visit Diagnoses Diagnosis SOB (shortness of breath) Shortness of breath documented in this encounter Care Teams Emergency Veterinarian Relationship Specialty Start Date End Date Anna Mullen MD PCP - General 12/03/10 [address] [place] [address] documented as of this encounter
--- OUTSIDE RECORDS SUMMARY | 2022-03-13 18:24 | XMS_ITS | Encounter Summary ---
:1965 Author Organization [facility] [place] [address] Care Team Providers Name Role Phone Anna Mullen MD Primary Care Provider Reason for Visit Reason Comments Medication Refill Encounter Details Date Type Department Care Team Description 03/06/2021 Refill Solid Organ Transplant at Eriberto Emery MD [facility] [employer] [place] [address] [place] [address] [phone] (Wo rk) Social History Tobacco Use Types [...] on filedocumented in this encounter Care Teams Ged Tutor Relationship Specialty Start Date End Date Anna Mullen MD PCP - General 12/03/10 [address] [place], [place] [address] documented as of this encounter
--- OUTSIDE RECORDS SUMMARY | 2022-03-13 18:24 | XMS_ITS | Encounter Summary ---
:1965 Author Organization [facility] [place] [address] Care Team Providers Name Role Phone Anna Mullen MD Primary Care Provider Reason for Visit Auth/Cert Specialty Diagnoses / Procedures Referred By Contact Refer red To Contact Diagnoses Intervertebral disc disorder with radiculopathy of lumbar region M51.16 Procedures PRO INJ, FORAMEN, L/S, 1 LEVEL INJECTION, ANESTHETIC AGENT AND/OR STEROID, TRANSFORAMINAL EPIDURAL, LUMBAR OR SACRAL, SINGLE LEVEL (WRVU 1.9) Referral ID Status Reason Start Date Expiration Date Visits Requ ested Visits Authorized [id number] 1 1 Encounter Details Date Type Department Care Team Description 08/15/2020 Ancillary Procedure Pain Management Bruce Tran usa, MD [facility] [place] [id number] [place] [address] [phone] Social History Tobacco Use Types Packs/Day Years [...] Name Priority Date/Time Associated Diagnosis Comme nts FILM LIBRARY Routine 08/15/2020 3:09 PM Results f or this STORAGE ONLY PAIN EST procedure are in [facility] the results section. documented in this encounter Results Film Library- Storage Only pain Clinic [facility] (08/15/2020 3:09 PM EST) Specimen (Source) Anatomical Location Collection Method / Collectio n Time Received Time / Laterality Volume Narrative [facility] - 08/15/2020 3:09 PM EST See PACS for result report. Oracio Alejandra MD IMG FILM LIBRARY ORDERABLES Performing Organization Address City/State/ZIP Code Phon e Number [place], [place] documented in this encounter Visit Diagnoses Not on filedocumented in this encounter Care Teams Anesthesiologist Assistant Certified Relationship Specialty Start Date End Date Anna Mullen MD PCP - General 12/03/10 [address] [place] [address] documented as of this encounter
--- OUTSIDE RECORDS SUMMARY | 2022-03-13 18:24 | XMS_ITS | Encounter Summary ---
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 HEMOGRAM Routine 11/01/2020 8:03 AM Pancreas replaced Resu lts for this EST by transplant procedure are in SOB (shortness of the result s breath) section. DIFFERENTIAL, Routine 11/01/2020 8:03 AM Pancreas replaced Res ults for this AUTOMATED EST by transplant procedure are in SOB (shortness of the result s breath) section. HC FK-506 (TACROLIMUS) Routine 11/01/2020 8:03 AM Pancreas rep laced Results for this EST by transplant procedure are in SOB (shortness of the result s breath) section. HC RETIC,AUTO INCLUDES Routine 11/01/2020 8:03 AM Pancreas rep laced Results for this RETHE & IRF EST by transplant procedure are in SOB (shortness of the result s breath) section. HC CBC,PLT & AUTO DIFF Routine 11/01/2020 8:03 AM Pancreas rep laced EST by transplant SOB (shortness of breath) HC URIC ACID, SERUM Routine 11/01/2020 8:03 AM Pancreas replac ed Results for this EST by transplant procedure are in SOB (shortness of the result s breath) section. HC PHOSPHORUS, SERUM Routine 11/01/2020 8:03 AM Pancreas repla [place] Results for this EST by transplant procedure are in SOB (shortness of the result s breath) section. HC MAGNESIUM, SERUM Routine 11/01/2020 8:03 AM Pancreas replac ed Results for this EST by transplant procedure are in SOB (shortness of the result s breath) section. HC LIPASE Routine 11/01/2020 8:03 AM Pancreas replaced Resu lts for this EST by transplant procedure are in SOB (shortness of the result s breath) section. HC VENIPUNCTURE Routine 11/01/2020 8:03 AM Pancreas replaced R esults for this EST by transplant procedure are in Encounter for the results long-term (current) section. use of other medications HC CHOLESTEROL Routine 11/01/2020 8:03 AM Pancreas replaced Re sults for this EST by transplant procedure are in SOB (shortness of the result s breath) section. HC AMYLASE Routine 11/01/2020 8:03 AM Pancreas replaced Resu lts for this EST by transplant procedure are in SOB (shortness of the result s breath) section. COMPREHENSIVE Routine 11/01/2020 8:03 AM Pancreas replaced Res ults for this METABOLIC PANEL EST by transplant procedure are in (NON-FASTING) SOB (shortness of the resul ts breath) section. documented in this encounter Results Urinalysis with reflex Culture (11/01/2020 8:07 AM EST) [facility] Method Time Signature Glucose UA Negative Negative [facility] mg/dL [facility] Protein UA Negative Negative [facility] mg/dL [facility] Bilirubin UA Negative Negative [facility] mg/dL [facility] Comment: Clinical correlation required for positi ve Urine Bilirubin results as false positive may occur with some drugs and d rug related products. If a false positive is suspected a serum total bili sinha should be considered if clinically indicated. Urobilinogen UA Normal Normal mg/dL [facility] pH UA 6.0 5.0 - 8.0 [facility] Blood UA Negative Negative mg/dL [facility] Ketones UA Negative Negative mg/dL [facility] Nitrite UA Negative Negative [facility] Leukocytes UA Negative Negative [facility]ORY Appearance UA Clear Clear [facility] Spec Leander UA 1.008 1.006 - 1.030 [facility] Color UA Yellow Yellow [facility] Culture Reflexed No [facility] Specimen (Source) Anatomical Collection Method Collection Time Re ceived Time Location / / Volume Laterality Urine specimen 11/01/2020 8:07 11/01/2020 8:12 obtained by clean AM EST AM EST catch procedure (specimen) Resulting Agency Comment Spec In Lab Eriberto Melgar MD URINE ORDERABLES Performing Organization Address City/State/ZIP Code Phon e Number [place] [phone] (ABNORMAL) Differential, Automated (11/01/2020 8:03 AM EST) [facility] Method Time Signature Neutrophils % 44.3 % [facility] Neutr Abs (ANC) 3.52 1.70 - [facility] 6.10 [facility] x10(3)/[facility] LABORATORY Lymphocytes % 42.6 % [facility] Lymphocytes Abs 3.4 (H) 0.9 - 3.2 [facility] x10(3)/[facility] LABORATORY Monocytes % 9.4 % [facility] Monocyte Abs 0.8 0.3 - 0.9 [facility] x10(3)/[facility] LABORATORY Eosinophils % 2.6 % [facility] Eosinophils Abs 0.2 0.0 - 0.4 [facility] x10(3)/[facility] LABORATORY Basophils % 0.6 % [facility] Basophils Abs 0.0 0.0 - 0.1 [facility] x10(3)/[facility] LABORATORY Immature Gran % 0.50 % [facility] Comment: Immature granulocytes(IG's)percentage an d absolute count will include metamyelocytes, myelocytes, and promyelo cytes. Blood smears from CBCs yielding IG's will be scanned manually for concor dance. If this scan disagrees with the automated IG or if promyelocytes are not ed, a manual differential will be performed. Kym Gran Abs 0.04 0.00 - 0.04 x10(3)/[facility] Specimen Anatomical Collection Method Collection Time Receive d Time (Source) Location / / Volume Laterality Blood specimen 11/01/2020 8:03 AM 021 8:11 (specimen) EST AM EST Resulting Agency Comment Spec In Lab Eriberto Melgar MD HEMATOLOGY ORDERABLES Performing Organization Address City/State/ZIP Code Phon e Number [place] [phone] Hemogram (11/01/2020 8:03 AM EST) P athologist Signature WBC 8.0 4.0 - 9.5 [facility] x10(3)/[facility] LABORATORY RBC 4.58 4.58 - [place] 5.54 [facility] x10(6)/[facility] LABORATORY Hemoglobin 13.7 13.7 - [place] 16.5 gm/dL [facility] Hematocrit 40.5 40.5 - [place] 48.5 % [facility] MCV 88.4 82.9 - [place] 93.1 fL [facility] MCH 29.9 27.5 - [place] 32.1 pg [facility] MCHC 33.8 32.0 - [place] 35.7 gm/dL [facility] Platelets 207 145 - 357 [facility] x10(3)/[facility] LABORATORY RDWSD 40.3 36.0 - [facility] 45.0 [facility] LABORATORY RDWCV 12.4 11.4 - [facility] 13.8 [facility] MPV 10.4 7.6 - 12.9 [facility] LABORATORY nRBC % Auto 0.0 % [facility] nRBC Abs Auto 0.000 0.000 - [facility] 0.000 [facility] x10(3)/[facility] LABORATORY Specimen Anatomical Collection Method Collection Time Receive d Time (Source) Location / / Volume Laterality Blood specimen 11/01/2020 8:03 AM 8:11 (specimen) EST AM EST Resulting Agency Comment Spec In Lab Eriberto Melgar MD HEMATOLOGY ORDERABLES Performing Organization Address City/[facility]/ZIP Code Phon e Number [address] Reticulocyte Count (11/01/2020 8:03 AM EST) P athologist Signature Retic Ct % 1.2 0.7 - 2.6 [facility] Retic Ct Abs 0.060 0.030 - [facility] 0.120 [facility] x10(6)/[facility] LABORATORY Immature Retic% 9.9 0.0 - 15.6 [facility] K [facility] Reticulated Hgb 35.6 31.3 - [facility] 40.2 pg [facility] Specimen Anatomical Collection Method Collection Time Receive d Time (Source) Location / / Volume Laterality Blood specimen 11/01/2020 8:03 AM 8:11 (specimen) EST AM EST Resulting Agency Comment Spec In Lab Eriberto Melgar MD HEMATOLOGY ORDERABLES Performing Organization Address City/[facility]/ZIP Code Phon e Number [address] Magnesium (11/01/2020 8:03 AM EST) P athologist Signature Magnesium 0.69 0.69 - 1.07 [facility] mmol/L [facility] Specimen Anatomical Collection Method Collection Time Receive d Time (Source) Location / / Volume Laterality Blood specimen 11/01/2020 8:03 AM 021 8:11 (specimen) EST AM EST Resulting Agency Comment Spec In Lab Eriberto Melgar MD CHEMISTRY ORDERABLES Performing Organization Address City/State/ZIP Code Phon e Number [address] Phosphorus (11/01/2020 8:03 AM EST) P athologist Signature Phosphorus 2.6 2.5 - 4.5 [facility] mg/dL [facility] Specimen Anatomical Collection Method Collection Time Receive d Time (Source) Location / / Volume Laterality Blood specimen 11/01/2020 8:03 AM 021 8:11 (specimen) EST AM EST Resulting Agency Comment Spec In Lab Eriberto Melgar MD CHEMISTRY ORDERABLES Performing Organization Address City/[facility]/ZIP Code Phon e Number [address] Cholesterol, total (11/01/2020 8:03 AM EST) athologist Signature Chol, Total 111 mg/dL [facility] Comment: Lower Risk: <200 mg/dL Average Risk: 200-239 mg/dL Higher Risk: >zn=005 mg/dL Lipid Interpretation See Note [facility] Comment: Lipid management should be guided by a p atient? s ASCVD risk, goals and preferences. ACC/AHA Guidelines recommend high intens ity statin if clinical ASCVD or LDL greater than or equal to 190 mg/dL. http://tinyurl.com/MEL-GEW-Pelqofjsq Adults aged 40-75 with LDL 70-189 mg/dL should have their 10 year ASCVD risk estimated with the ACC/AHA ASCVD risk es timator http://tools.acc.org/NGZFA-Nkpf-Rmevbmwl r/ Statin should be discussed if risk [...] (Source) Location / / Volume Laterality Blood specimen 11/01/2020 8:03 AM 8:11 (specimen) EST AM EST Resulting Agency Comment Spec In Lab Eriberto Melgar MD CHEMISTRY ORDERABLES Performing Organization Address City/[facility]/ZIP Code Phon e Number [address] Uric acid (11/01/2020 8:03 AM EST) P athologist Signature Uric Acid 5.3 3.5 - 8.5 [facility] mg/dL [facility] Specimen Anatomical Collection Method Collection Time Receive d Time (Source) Location / / Volume Laterality Blood specimen 11/01/2020 8:03 AM 8:11 (specimen) EST AM EST Resulting Agency Comment Spec In Lab Eriberto Melgar MD CHEMISTRY ORDERABLES Performing Organization Address City/[facility]/ZIP Code Phon e Number [address] Amylase (11/01/2020 8:03 AM EST) P athologist Signature Amylase 52 28 - 100 [facility] LABORATORY Specimen Anatomical Collection Method Collection Time Receive d Time (Source) Location / / Volume Laterality Blood specimen 11/01/2020 8:03 AM 8:11 (specimen) EST AM EST Resulting Agency Comment Spec In Lab Eriberto Melgar MD CHEMISTRY ORDERABLES Performing Organization Address City/[facility]/ZIP Code Phon e Number [address] Lipase (11/01/2020 8:03 AM EST) P athologist Signature Lipase 23 0 - 60 [facility] LABORATORY Specimen Anatomical Collection Method Collection Time Receive d Time (Source) Location / / Volume Laterality Blood specimen 11/01/2020 8:03 AM 021 8:11 (specimen) EST AM EST Resulting Agency Comment Spec In Lab Eriberto Melgar MD CHEMISTRY ORDERABLES Performing Organization Address City/State/[place] [address] (ABNORMAL) Comprehensive metabolic panel (non-fasting) (11/01/2020 8:03 AM EST) athologist Signature Glucose Lvl 102 65 - 199 [facility] mg/dL [facility] Comment: Diabetes: >=200 mg/dL plus symp toms BUN 12 10 - 20 mg/dL [facility] Creatinine 0.95 0.80 - 1.50 mg/dL [facility] Sodium 133 (L) 135 - 145 mmol/L [facility] Potassium 4.5 3.5 - 5.0 mmol/L [facility] Comment: Please note: ??Patients with WBC >100,00 0 may have falsely elevated Potassium levels. ??For accurate Potassium quantif ication in these patients send serum separator tube (gold top) for subsequent determinations. ??Contact the Clinical Chemistry Laboratory if there are any qu estions. Chloride 97 (L) 98 - 107 mmol/L [facility] CO2 28 22 - 31 mmol/L [facility] Anion Gap 8 5 - 15 mmol/L [facility] Calcium 9.3 8.5 - 10.5 mg/dL [facility] Total Protein 6.9 6.1 - 8.0 gm/dL [facility] Albumin 4.5 3.2 - 5.2 gm/dL [facility] AST 24 0 - 39 unit/L [facility] ALT 22 0 - 55 unit/L [facility] Alk Phos 113 40 - 130 unit/L [facility] Total Bilirubin 1.0 0.2 - 1.3 mg/dL [facility] Estimated GFR 91 >=60 mL/min/1.73 m?? [facility] Comment: This patient? s estimated glomerular filtration rate (eGFR) is between 91 mL/min/1.73 m2 (patients with less muscl e mass per kg body weight) and 105 mL/min/1.73 m2 (patients with more muscl e mass per kg body weight) as determined by the CKD-EPI equation. Asse ssment of eGFR is not appropriate when creatinine concentrations are rapidly ch anging. For clinical decisions where creatinine clearance will affect therapy , a 24-hour urine creatinine clearance may be advised. Assignment of CKD stage 1 ? 5 for patients with an eGFR near the transition point between stages may be based on cli nical assessment of muscle mass and symptoms in addition to eGFR. Specimen Anatomical Collection Method Collection Time Receive d Time (Source) Location / / Volume Laterality Blood specimen 11/01/2020 8:03 AM 021 8:11 (specimen) EST AM EST Resulting Agency Comment Spec In Lab Eriberto Melgar MD CHEMISTRY ORDERABLES Performing Organization Address City/[facility]/[place] [address] Tacrolimus level (11/01/2020 8:03 AM EST) P athologist Signature Tacrolimus Lvl 8.8 ng/mL [facility] Comment: Please be advised that as of 09/04/2020 th e methodology for tacrolimus testing has changed from a liquid chromatography tandem mass spectrometry platform to an electrochemiluminescence immunoassay format. Specimen Anatomical Collection Method Collection Time Receive d Time (Source) Location / / Volume Laterality Blood specimen 11/01/2020 8:03 AM 021 8:11 (specimen) EST AM EST Resulting Agency Comment Spec In Lab Eriberto Melgar MD CHEMISTRY ORDERABLES Performing Organization Address City/[facility]/ZIP [facility] Phon e Number [address] Hemoglobin A1c (11/01/2020 8:03 AM EST) P athologist Signature Hemoglobin A1C 5.2 4.3 - 5.6 [facility] Comment: Reference Range: 4.3 [...] 1, S67-74 Est Avg Gluc 103 mg/dL [facility] Comment: eAG equivalents for HbA1c percentages: HbA1c(%) ?eAG(mg/dL) 6.0 ?126 6.5 ?140 7.0 ?154 7.5 ?169 8.0 ?183 8.5 ?197 9.0 ?212 9.5 ?226 10.0 ? 240 Limitations: The eAG calculation has not been validated on women, individuals below 18 years old and above 70 years old, and individuals with hemoglobinopathies. Additional resources are available on e ADA website. Edinson GRISSOM, Nathaniel J, Ari R, et al. ??Tr anslating the A1C assay into estimated average glucose values. ??Diabetes Care 2008:31(8):2378-3324. 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
--- OUTSIDE RECORDS SUMMARY | 2022-03-13 18:24 | XMS_ITS | Encounter Summary ---
:1965 Author Organization [facility] [place] [address] Care Team Providers Name Role Phone Anna [...] Expiration Date Visits Requ ested Visits Authorized [id number] 1 1 Encounter Details Date Type Department Care Team Description 08/15/2020 Hospital Encounter Pain Management Oracio Alejandra, Inter vertebral disc Tiffani Hall MD disorder with [facility] MEDICAL radiculopathy of [facility] lumbar [place] [phone] Social History Tobacco Use Types Packs/Day Years Used Date Never Smoker Smokeless Tobacco: Never Used Alcohol Use Standard Drinks/Week Comments No 0 (1 standard drink = 0.6 oz pure alcoho l) history of abuse, stopped 1996 Sex Assigned at Date Recorded Male 05/29/2021 11:28 PM EDT documented as of this encounter Last Filed Vital Signs Vital Sign Reading Time Taken Comments Blood Pressure 142/81 08/15/2020 10:30 AM EST Pulse - - Temperature - - Respiratory Rate 18 08/15/2020 10:30 AM EST Oxygen Saturation 100% 08/15/2020 10:30 AM EST Inhaled Oxygen Concentration - - Weight 95.3 kg (210 lb) 08/15/2020 10:30 AM EST Height 182.9 cm (6') 08/15/2020 10:30 AM EST Body Mass Index 28.48 08/15/2020 10:30 AM EST documented in this encounter Discharge Instructions Discharge InstructionsAldair Cordon RN - 08/15/2020 11:33 AM EST Pain Management Center Discharge Instructions: You were seen today by Surgeon(s): Oracio Alejandra MD Shah, Sunali, MD The following was performed: Procedure(s) (LRB): INJECTION, ANESTHETIC AGENT AND/OR STEROID, TRANSFORAMINAL EPIDURAL, LUMBAR OR SACRAL, SINGLE LEVEL (WRVU 1.9) (N/A) It is normal that the injection site will be sore for up to 48 hours. [x] You may also experience mild stiffness in the joint near the injection site. You may resume your normal activities: tomorrow. You may shower today. DO NOT tub bathe, use whirlpools, hot tubs or pool therapy for 2 days. Remove Band-Aid(s) later today/tomorrow. Do not drive until tomorrow. Use caution walking/climbing stairs as you may be unsteady on your feet. You may use your usual medications, including pain medications, as directed, unless otherwise instructed. You may use an ice pack as needed for the first 24 hours, on for 20 minutes then off for 20 minutes.Do not apply heat today. Attempt to empty your bladder 4-6 hours after your procedure. You received the following medications: Medications Given During Procedure Date/Time Order Dose Route Action 08/15/2020 1131 iohexoL (Omnipaque) (240 mg/mL) injection solution 1 mL Epidural Given 08/15/2020 1132 methylPREDNISolone acetate (DEPO-Medrol) (80 mg/mL) injection 80 mg Epidural Given During regular business hours, please phone the Pain Management Center at with any questions or if the following or other troubling symptoms develop: 1) Prolonged dizziness or weakness (more than 1 day). 2) Localized swelling, redness or drainage at the injection site(s). 3) Temperature of 101 degrees that lasts for more than 4 hours. After 5 PM or on weekends, call and ask for Pain Clinic provider on-call. If you are unable to reach the Pain Management Center and have a complication, please call your Primary Care Provider or proceed to your local emergency department. Aldair Cordon RN Special instructions documented in this encounter Medications at Time of Discharge Medication Sig Dispensed Refills Start Date End Date betamethasone 0 07/19/2020 dipropionate (DIPROLENE) 0.05 % Cream HYDROcodone-acetaminophe TAKE 1 TABLET BY 0 07/18 n ([place]) 10-325 mg MOUTH TWICE DAILY Tablet NEEDED [...] 6 09/14/2012 mg tablet Dx code :250.60 carvediloL (Coreg) 6.25 Take 1 tablet by 180 tablet 2 201905/03/2021 mg Tablet mouth 2 times daily for 270 days. mycophenolate (Cellcept) TAKE TWO CAPSULES 360 capsule 2 03/05/2021 250 mg Capsule BY MOUTH TWICE A DAY losartan (COZAAR) 100 mg Take 1 tablet by 30 tablet 11 06/2106/17/2021 TabletIndications: mouth nightly. Aftercare following organ transplant hydrALAZINE (Apresoline) Take 1 tablet by 60 tablet 3 06/1310/11/2020 25 mg Tablet mouth 2 times daily. fludrocortisone TAKE 1 TABLET BY 90 tablet 2 06/01/202003/2021 (Florinef) 0.1 mg Tablet MOUTH ONCE DAILY traZODone (Desyrel) 50 TAKE ONE TABLET BY 90 tablet 3 04/3004/24/2021 mg Tablet MOUTH EVERY EVENING Prograf 1 mg Capsule TAKE TWO CAPSULES 90 capsule 11 02/23/20 20 02/25/2021 BY MOUTH in AM and 1 capsule in PM. Pancreas transplant 08/28/2013. ICD code Z94.83 documented as of this encounter H&P Notes Maryann Montgomery MD - 08/15/2020 11:07 AM EST Patient Name: Richard Hsu Patient Age: 54 y.o. Birthdate: 1965 Admit date: 08/15/2020 Attending Physician: Oracio Alejandra MD PREPROCEDURE HISTORY AND PHYSICAL Date of Visit: August 15, 2020 Chief Complaint: Low back and left anterior thigh pain HPI: Subjective Richard Hsu is a 54 y.o. male who presents today for lumbar epidural steroid injection ordered by Dr Yang Procedure history: S/p TFESI left L2 on 07/09/[address] Alejandra which gave 15% relief x 15 minutes The history is obtained from the patient, and I have reviewed medical records provided by the referring physician and located in the electronic medical record to fill in gaps in the patient's recollection of events, treatments and outcomes. LOCATION: left lumbar area to left lower extremity PAIN LEVEL AT REST 7 PAST MEDICAL HISTORY: Past Medical History: Diagnosis Date ??? ASCVD [...] tardive dysc..(Severe twichinglimbs ??? Nervous system disorder 1976 stroke age [age] ??? Other ill-defined conditions(799.89) 3 years ago Tardive dyskinesia ??? Papillary fibroelastoma of heart aortic valve ??? Severe headache PAST SURGICAL HISTORY: Past Surgical History: Procedure Laterality Date ??? APPENDECTOMY ??? BRAIN SURGERY 1976 stroke paralyze left side neck down ??? CARPAL TUNNEL RELEASE ??? CREATED BY INTERFACE EGD-BIOPSY Procedure Date: 07/18/2009 ??? CREATED BY INTERFACE Entered not Verified Procedure Date: 10/24/2010 ??? PRO COLONOSCOPY, DIAGNOSTIC N/A 10/24/2014 COLONOSCOPY, DIAGNOSTIC performed by Anna Rapp MD at [facility] ENDOSCOPY ??? PRO TRANSPLANT ALLOGRAFT PANCREAS 08/28/2013 @PANCREATIC TRANSPLANT performed by Iraj Keller MD at [facility] MAIN OR ??? PRO TRANSPLANT, PREP DONOR PANCREAS 08/28/2013 @PREPARATION CADAVERIC PANCREAS, STANDARD performed by Iraj Keller MD at [facility] MAIN OR ??? PRO UNLISTED PROCEDURE, MUSCULOSKELETAL SYSTEM, GENERAL 10 years carpel tunnel ??? PRO UPPER GI ENDOSCOPY, BIOPSY 12/31/2011 UPPER GASTROINTESTINAL ENDOSCOPY,WITH BIOPSY SINGLE OR MULTIPLE performed by MAURICIO BHAKTA at [facility] ENDOSCOPY ??? PRO UPPER GI ENDOSCOPY, BIOPSY N/A 08/15/2015 EGD WITH BIOPSY performed by Mauricio Bhakta MD at [facility] ENDOSCOPY ??? SHOULDER SURGERY ??? UPPER GI ENDOSCOPY, EXAM 12/31/2011 UPPER GI ENDOSCOPY performed by MAURICIO BHAKTA at [facility] ENDOSCOPY ALLERGIES: Lisinopril, Esomeprazole, Nexium [esomeprazole magnesium], Omeprazole, Prilosec [omeprazole magnesium], Reglan [metoclopramide hcl], and Simvastatin MEDICATIONS: No current facility-administered medications on file prior to encounter. Current Outpatient Medications on File Prior to Encounter Medication Sig Dispense Refill ??? betamethasone dipropionate (DIPROLENE) 0.05 % Cream ??? HYDROcodone-acetaminophen ([place]) 10-325 mg Tablet TAKE 1 TABLET BY MOUTH TWICE DAILY NEEDED FOR PAIN ??? mycophenolate (Cellcept) 250 mg Capsule TAKE TWO CAPSULES BY MOUTH TWICE A DAY 360 capsule 2 ??? losartan (COZAAR) 100 mg Tablet Take 1 tablet by mouth nightly. 30 tablet 11 ??? hydrALAZINE (Apresoline) 25 mg Tablet Take 1 tablet by mouth 2 times daily. 60 tablet 3 ??? fludrocortisone (Florinef) 0.1 mg Tablet TAKE 1 TABLET BY MOUTH ONCE DAILY 90 tablet 2 ??? acetaminophen (Tylenol) 500 mg Tablet Take 1,000 mg by mouth every 6 hours as needed for Pain. ??? amoxicillin (Amoxil) 500 mg Capsule TAKE 4 CAPSULES BY MOUTH 1 HOUR PRIOR TO DENTAL APPOINTMENT ??? OneTouch Ultra Blue Test Strip Strip TEST BLOOD SUGAR ONCE DAILY ??? traZODone (Desyrel) 50 mg Tablet TAKE ONE TABLET BY MOUTH EVERY EVENING 90 tablet 3 ??? verapamil SR (Calan-SR) 120 mg Tablet Sustained Release Take 120 mg by mouth daily. ??? gabapentin (Neurontin) 300 mg Capsule Take 300 mg by mouth 3 times daily. Takes 1 caps in the morning, 2 caps in the afternoon and 2 caps at night. ??? Prograf 1 mg Capsule TAKE TWO CAPSULES BY MOUTH in AM and 1 capsule in PM. Pancreas transplant 08/28/2013. ICD code Z94.83 90 capsule 11 ??? clopidogrel (PLAVIX) 75 mg Tablet Take 1 tablet by mouth daily. 90 tablet 3 ??? venlafaxine (EFFEXOR-XR) 150 mg Capsule, Sust. Release 24 hr Take 150 mg by mouth Daily. ??? venlafaxine XR (EFFEXOR-XR) 75 mg Capsule, Sust. Release 24 hr Take 75 mg by mouth daily. Takingwith 150 mg to total 225 mg total ??? atorvastatin (LIPITOR) 10 mg Tablet Take 1 tablet by mouth daily. 90 tablet 2 ??? valACYclovir (VALTREX) 500 mg Tablet TAKE ONE TABLET BY MOUTH THREE TIMES A DAY 30 tablet 3 ??? levothyroxine (SYNTHROID) 150 mcg Tablet Take 150 mcg by mouth daily. ??? fexofenadine (BECKY) 60 mg Tablet Take 60 mg by mouth daily. ??? Magnesium Gluconate (MAG-G) 27 mg (500 mg) Tablet Take 1 tablet by mouth daily. 30 tablet 11 ??? multivitamin Capsule Take 1 capsule by mouth daily. ??? pantoprazole (PROTONIX) 40 mg Tablet, Delayed Release (E.C.) Take 40 mg by mouth 2 times daily. ??? psyllium 3.5 gram Powder in Packet Take 1 packet by mouth daily. 30 each 0 ??? ondansetron (ZOFRAN) 8 mg Tablet Take 1 tablet by mouth every 8 hours as needed for Nausea. 15 tablet 0 ??? sildenafil (VIAGRA) 100 mg tablet Take 1 tablet by mouth as needed for Erectile Dysfunction. 90 day supply Dx code :250.60 60 tablet 6 FAMILY HISTORY: Family History Problem Relation Age of Onset ??? Alcohol Use Disorder Father ??? Coronary Artery Disease Maternal Grandmother ??? Diabetes Maternal Grandmother ??? Heart Disease Maternal Grandmother ??? High Blood Pressure Mother ??? High Blood Pressure Brother ??? Stroke Maternal Grandfather SOCIAL HISTORY: Social History Socioeconomic History ??? Marital status: Spouse name: Not on file ??? Number of children: Not on file ??? Years of education: Not on file ??? Highest education level: Not on file Occupational History ??? 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 Financial resource strain: Not on file ??? Food insecurity Worry: Not on file Inability: Not on file ??? Transportation needs Medical: Not on file Non-medical: Not on file Tobacco Use ??? Smoking status: Never Smoker ??? Smokeless tobacco: Never Used Substance and Sexual Activity ??? Alcohol use: No Comment: history of abuse, stopped 1996 ??? Drug use: No ??? Sexual activity: Yes Comment: deferred Lifestyle ??? Physical activity Days per week: Not on file Minutes per session: Not on file ??? Stress: Not on file Relationships ??? Social connections Talks on phone: Not on file Gets together: Not on file Attends yazidism service: Not on file Active member of club or organization: Not on file Attends meetings of clubs or organizations: Not on file Relationship status: Not on file ??? Intimate partner violence Fear of current or ex partner: Not on file Emotionally abused: Not on file Physically abused: Not on file Forced sexual activity: Not on file Other Topics Concern ??? Exercise: Patient reported Yes Comment: yard work, push ups situps ??? 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 Lives with ROS: Pt denies recent fever, chills, infection, wounds, hospitalizations, ED visits, use of antibiotics. Otherwise, as described above. PHYSICAL EXAM: BP 142/81 Resp 18 Ht 182.9 cm (6') Wt 95.3 kg (210 lb) SpO2 100% BMI 28.48 kg/m?? Physical Exam Constitutional: Pt oriented to person, place, and time. Appears well-developed and well-nourished. No distress. HENT: Head: Normocephalic and atraumatic. Pulmonary/Chest: Effort normal. Neurological: Alert and oriented to person, place, and time. No cranial nerve deficit. Skin: Skin is warm and dry. No rash noted. Not diaphoretic. Psychiatric: Normal mood and affect. RADIOLOGIC DATA: Relevant imaging reviewed LABS/DX RESULTS: Last 3 wbc, hgb, hct plt Recent Labs 05/21/20 1349 02/16/20 0801 02/09/20 1317 WBC 6.1 10.4* 10.6* HGB 13.5* 13.7 13.9 HCT 39.5* 41.7 41.4 PLATELET 221 274 245 Last 3 Lytes Recent Labs 05/21/20 1349 02/16/20 0801 02/09/20 1317 NA 137 133* 127* K 4.2 4.2 4.8 CL 101 95* 92* CO2 28 29 23 BUN 16 19 13 CREATININE 1.00 1.00 1.20 Last 3 LFTs Recent Labs 05/21/20 1349 02/16/20 0801 02/09/20 1317 AST 23 11 22 ALT 21 16 24 ALKPHOS 112 128 135* BILITOT 0.7 0.7 1.1 Last 3 Coags Recent Labs 08/15/20 1045 INR 1.0 Last 3 HgbA1C Recent Labs 05/21/20 1349 HA1C 5.0 ASSESSMENT: Assessment 1. Intervertebral disc disorder with radiculopathy of lumbar region PLAN: Proceed with planned lumbar interlaminar epidural steroid injection. Addressed all questions and concerns. Risks and benefits discussed with patient. No contraindications to the procedure at this time,will proceed. Maryann Montgomery MD Pain Management Fellow [facility] [address] [phone] [email or web address] documented in this encounter Miscellaneous Notes Op Note - Maryann Montgomery MD - 08/15/2020 11:35 AM EST Pain Management Operative Note Patient Name: Richard Hsu : [id number] MR#: [id number] Case Date: 08/15/2020 Surgeon: Surgeon(s) and Role: * Oracio Alejandra MD - Primary * Maryann Montgomery MD - Fellow Present on Admission: ??? Intervertebral disc disorder with radiculopathy of lumbar region Postoperative diagnosis: same Procedure(s) (LRB): INJECTION, ANESTHETIC AGENT AND/OR STEROID, TRANSFORAMINAL EPIDURAL, LUMBAR OR SACRAL, SINGLE LEVEL (WRVU 1.9) (N/A) LUMBAR INTERLAMINAR EPIDURAL STERIOID INJECTION PROCEDURE NOTE Mr. Richard Hsu has been referred to the Pain Management Center for a lumbar epidural steroid injection by Anna Mullen MD [address] [place] [id number]. The patient complains of low back pain with pain radiating down the left leg. Mr. Hsu was greeted by the nurse who verified patients name and . The patient was then taken to the fluoroscopy suite. Mr. Hsu was interviewed and the medical record reviewed. There were no medical, pharmacologic, radiographic, or other structural contraindications to attempting fluoroscopically guided lumbar epidural steroid injection. Risks and potential side effects, as well as potential benefits of the procedure were reviewed with Mr. Hsu. His voiced concerns were addressed. After I was assured that informed consent was obtained, the patient consent form was signed. Standard time-out procedure was performed. Mr. Hsu was placed in the prone position on the fluoroscopy table and automated blood pressure cuff and pulse oximeter applied. The skin entry point for entering/approaching the L2-L3 epidural space for the lumbar epidural steroid injection was marked. Following thorough chlorhexadine preparation of the skin and draping and 1% lidocaine infiltration of the skin entry point and subcutaneous tissues, an 18 gauge Touhy needle was placed and advanced under fluoroscopic guidance and with loss of resistance technique into the L2-L3 epidural space. Needle tip placement and depth were aided and confirmed by fluoroscopy. There was no paresthesia or return of blood or CSF through the needle. 2 cc's of Omnipaque 240 was injected (48 cc's was wasted) with clear epidural spread confirmed with fluoroscopy.A mixture of Depomedrol 80mg and 2mL of preservative-free normal sale was injected. This was followed by 1 cc of preservative-free normal saline to flush the steroid out of the needle. There was not any unusual discomfort expressed by Mr. Hsu. (48 cc of Omnipaque was wasted) Mr. Hsu's vital signs were stable throughout the procedure and were as recorded in nursing records. Follow up plans and appointments were discussed with Mr. Hsu. The patient is set to follow up with 09/14/2020. Post procedure instruction was given as documented in nursing records and having met discharge criteria he was discharged from the Pain Management Center. Comments: Tolerated procedure, no complications. If this procedure is successful in helping with pain and improving his function, it can be completed a maximum of 3 times every 12 months. Maryann Montgomery MD Pain Management Fellow [facility] [address] [phone] [email or web address] CC: Anna Mullen MD [address] [place] [phone] Associated attestation - Oracio Alejandra MD - 08/17/2020 3:16 AM EST Attestation: Case Date: 08/15/2020 I was present and I participated during the entire procedure (does not need to include opening and closing). Oracio Alejandra MD 08/17/2020 documented in this encounter Plan of Treatment Not on filedocumented as of this encounter Procedures Procedure Name Priority Date/Time Associated Diagnosis Comme nts POCT INR Routine 08/15/2020 10:45 AM Results for this EST procedure are i n the results section . documented in this encounter Results POCT INR (08/15/2020 10:45 AM EST) P athologist Signature POC INR 1.0 0.9 - 1.1 Specimen (Source) Anatomical Collection Method Collection Time Re ceived Time Location / / Volume Laterality 08/15/2020 10:45 AM EST Oracio Alejandra MD POINT OF CARE TEST ORDERABLE S documented in this encounter Visit Diagnoses Diagnosis Intervertebral disc disorder with radicu lopathy of lumbar region - Primary Thoracic or lumbosacral neuritis or radi culitis, unspecified documented in this encounter Active and Recently Administered Medications Times are shown in EST. PRN Medication Order 08/13/2020 08/14/2020 08/15/2020 iohexoL (Omnipaque) (240 mg/mL) injection solution (CANCELED) 1131 (Given - Provider: Maryann Montgomery MD) ONCE PRN, Starting Thu08/15/20 at 1131, Until Thu08/15/20 at 1335, Intra- Operative (Intra-Procedure), Routine methylPREDNISolone acetate (DEPO-Medrol) (80 mg/mL) injection (C ANCELED) 1132 (Given - Provider: Maryann Montgomery MD) ONCE PRN, Starting Thu08/15/20 at 1132, Until Thu08/15/20 at 1335, Intra- Operative (Intra-Procedure), Routine documented in this encounter Care Teams Latin Dancer Relationship Specialty Start Date End Date Anna Mullen MD PCP - General 12/03/10 [address] [place] [address] documented as of this encounter
--- OUTSIDE RECORDS SUMMARY | 2022-03-13 18:24 | XMS_ITS | Encounter Summary ---
:1965 Author Organization [facility] [place] [address] Care Team Providers Name Role Phone Anna Mullen MD Primary Care Provider Reason for Visit Reason Comments Medication Refill Encounter Details Date Type Department Care Team Description 10/10/2020 Refill Solid Organ Transplant at Eriberto Emery MD [facility] ankit [place] [address] [place] [address] [phone] (Wo rk) Social History Tobacco Use Types [...] on filedocumented in this encounter Care Teams Winding Lathe Operator Relationship Specialty Start Date End Date Anna Mullen MD PCP - General 12/03/10 [address] [place], [place] [address] documented as of this encounter
--- OUTSIDE RECORDS SUMMARY | 2022-03-13 18:24 | XMS_ITS | Encounter Summary ---
:1965 Author Organization [facility] [place] [address] Care Team Providers Name Role Phone Anna Mullen MD Primary Care Provider Encounter Details Date Type Department Care Team Description 05/30/2021 Hospital Encounter Pulmonology at [facility] SOB (shortness [facility] breath) [place] [address] Social History Tobacco Use Types Packs/Day [...] Sig Dispensed Refills Start Date End Date diazePAM (Valium) 5 mg Take 1 tablet [...] TAKE 1 TABLET BY 0 07/18 n ([place]) 10-325 mg MOUTH TWICE DAILY Tablet [...] 05/0108/05/2021 mg Tablet MOUTH TWICE A DAY traZODone (Desyrel) 50 TAKE ONE TABLET BY 30 tablet 0 04/2606/25/2021 mg Tablet MOUTH EVERY EVENING fludrocortisone TAKE ONE TABLET BY 30 tablet 0 03/07/2021 0 02/03/2022 (Florinef) 0.1 mg Tablet MOUTH EVERY DAY mycophenolate (Cellcept) TAKE TWO CAPSULES 360 capsule 2 01/202112/02/2021 250 mg Capsule BY MOUTH TWICE A DAY Prograf 1 mg Capsule TAKE TWO CAPSULES 90 capsule 11 02/26/20 21 07/09/2021 BY MOUTH in AM and 1 capsule in PM. Pancreas transplant 08/28/2013. ICD code Z94.83 losartan (COZAAR) 100 mg Take 1 tablet by 30 tablet 11 06/2106/17/2021 TabletIndications: mouth nightly. Aftercare following organ transplant documented as of this encounter Plan of Treatment Not on filedocumented as of this encounter Procedures Procedure Name Priority Date/Time Associated Diagnosis Comme nts PULMONARY FUNCTION Routine 05/30/2021 10:41 AM SOB (shortness of Results for this TEST EDT breath) procedure are i n the results section. documented in this encounter Results Pulmonary Function Testing (05/30/2021 10:41 AM EDT) P athologist Signature FVC Actual 4.32 L [facility] PFT Pre-BD FVC Pre-BD % of 87 % [facility] PFT Predicted FVC Predicted 4.98 L [facility] PFT FVC Pre-BD -0.97 [facility] PFT Z-Score FVC Lower 3.86 L [facility] PFT Limits of Normal FEV1 Actual 3.49 L [facility] PFT Pre-BD FEV1 Pre-BD % 90 % [facility] PFT of Predicted FEV1 Predicted 3.89 L [facility] PFT FEV1 Pre-BD -0.75 [facility] PFT Z-Score FEV1 Lower 3.00 L [facility] PFT Limits of Normal FEV1 / FVC 81 % [facility] PFT Actual Pre-BD FEV1/FVC Pre-BD 0.49 [facility] PFT Z-Score FEV1 / FVC LLN 67 % [facility] PFT [id number] Actual 3.81 L/s [facility] PFT Pre-BD [id number] Pre-BD 111 % [facility] PFT % of Predicted [id number] 3.42 L/s [facility] PFT Predicted [id number] Pre-BD 0.33 [facility] PFT Z-Score DLCO Hb Actual 24.71 mL/min/mmHg [facility] PFT Pre-BD DLCO Hb Pre-BD 84 % [facility] PFT % of Predicted DLCO Hb Pre-BD -1.04 [facility] PFT Z-Score DLCO Hb 29.34 mL/min/mmHg [facility] PFT Predicted DLCO UNC ACT 24.71 mL/min/mmHg [facility] PFT PRE-BD DLCO UNC PRE-BD 84 % [facility] P[facility] % of PRED DLCO UNC PRE-BD -1.04 % [facility] PFT Z-SCORE DLCO UNC 29.34 mL/min/mmHg [facility] PFT Predicted DLCO/VA Actual 4.02 mL/min/mmHg [facility] PFT Pre-BD /L DLCO/VA Pre-BD 92 % [facility] PFT % of Predicted DLCO/VA Pre-BD -0.56 [facility] PFT Z-Score DLCO/VA 4.38 mL/min/mmHg [facility] P[facility] Predicted /L Specimen (Source) Anatomical Location Collection Method / Collectio n Time Received Time / Laterality Volume Narrative [facility] PFT - 05/30/2021 10:41 AM EDT FINDINGS: FEV1, FVC, and FEV1/VC are within normal limits. Diffusion capacity is normal. IMPRESSION: Normal spirometry and diffus ing capacity. Procedure Note NEW, GLATT - 05/31/2021Formatting of thi s note might be different from the original. FINDINGS: FEV1, FVC, and FEV1/VC are wit hin normal limits. Diffusion capacity is normal. IMPRESSION: Normal spirometry and diffus ing capacity. Mauricio Villagran MD PFT ORDERABLES Performing Organization Address City/State/ZIP Code Phon e Number [facility] P[facility] documented in this encounter Visit Diagnoses Diagnosis SOB (shortness of breath) Shortness of breath documented in this encounter Care Teams Sewing Demonstrator Relationship Specialty Start Date End Date Anna Mullen MD PCP - General 12/03/10 [address] [place] [address] documented as of this encounter
--- OUTSIDE RECORDS SUMMARY | 2022-03-13 18:24 | XMS_ITS | Encounter Summary ---
:1965 Author Organization [facility] [place] [address] Care Team Providers Name Role Phone Anna Mullen MD Primary Care Provider Reason for Visit Reason Comments Medication Refill Encounter Details Date Type Department Care Team Description 05/08/2021 Refill Solid Organ Transplant at Eriberto Emery MD [facility] ankit [place] [address] [place] [address] [phone] (Wo rk) Social History Tobacco Use Types [...] on filedocumented in this encounter Care Teams Palliative Senior Np Relationship Specialty Start Date End Date Anna Mullen MD PCP - General 12/03/10 [address] [place], [place] [id number] documented as of this encounter
--- OUTSIDE RECORDS SUMMARY | 2022-03-13 18:24 | XMS_ITS | Encounter Summary ---
:1965 Author Organization [facility] [place] [address] Care Team Providers Name Role Phone Anna [...] Expiration Date Visits Requ ested Visits Authorized [id number] 1 1 Encounter Details Date Type Department Care Team Description 04/25/2021 Hospital Encounter Gastroenterology at [facility] Felisa Shaw MD [facility] [place] [address] CENTER [phone] GASTROENTEROLOGY [place], [place] [address] Social History Tobacco Use Types [...] Sign Reading Time Taken Comments Blood Pressure 132/82 04/25/2021 5:10 PM EDT Pulse 74 04/25/2021 5:10 PM EDT Temperature - - Respiratory Rate 16 04/25/2021 5:10 PM EDT Oxygen Saturation 97% 04/25/2021 5:10 PM EDT Inhaled Oxygen Concentration - - Weight 97.5 kg (215 lb) 04/25/2021 4:07 PM EDT Height - - Body Mass Index 29.16 08/15/2020 10:30 AM EST documented in this encounter Discharge Instructions Discharge InstructionsMireille Irwin RN - 04/25/2021 5:21 PM EDT Upper GI Endoscopy: What to Expect at Home Your Recovery You will be able to go home after your doctor or nurse checks to make sure you are not having any problems. You may have to stay overnight if you had treatment during the test. You may have a sore throat for a day or two after the test. This care sheet gives you a general idea about what to expect after the test. How can you care for yourself at home? Activity Rest when you feel tired. ?? You can do your normal activities when it feels okay to do so. Diet ?? Follow your doctor's directions for eating. ?? Unless your doctor has told you not to, drink plenty of fluids. This helps to replace the fluidsthat were lost during the prep. ?? Do not drink alcohol. Medicines ?? Your doctor will tell you if and when you can restart your medicines. He or she will also give you instructions about taking any new medicines. ?? If you take blood thinners, such as warfarin (Coumadin), clopidogrel (Plavix), or aspirin, be sure to talk to your doctor. He or she will tell you if and when to start taking those medicines again.Make sure that you understand exactly what your doctor wants you to do. ?? If polyps were removed or a biopsy was done during the test, your doctor may tell you not to take aspirin or other anti-inflammatory medicines for a few days. These include ibuprofen (Advil, Motrin) and naproxen (Aleve). ?? If you have a sore throat the day after the procedure, use an npno-tqt-awvgvzq spray to numb yourthroat. Sucking on throat lozenges and gargling with warm salt water may also help relieve your symptoms. Other instructions ?? For your safety, do not drive or operate machinery until the medicine wears off and you can think clearly. Your doctor may tell you not to drive or operate machinery until the day after your test. ?? Do not sign legal documents or make major decisions until the medicine wears off and you can think clearly. The anesthesia can make it hard for you to fully understand what you are agreeing to. Additional Information for Sedation Patients For patients who received sedation: ?? You may have received medications before and/or during your procedure which effects your judgement and reaction time. ?? Do not drive, operate machinery, drink alcoholic beverages or make important decisions for 24 hours. ?? Be careful on stairs as you may be unsteady on your feet. ?? You may eat a regular diet as tolerated. ?? Do not smoke if you are alone. ?? IV site: Slight redness or tenderness is normal, you can use a warm compress if you would like. If tenderness and/or redness increase or if foul drainage occurs, please contact your Doctor. Please call [phone] before 8pm Mon-Fri with problems, questions or concerns. If you call after 8pm or on weekends, call the Hospital at [phone] and ask to speak to the District Court Judge white metal corrosion proofer and the dozer operator will contact that person for you. When should you call for help? Call [phone] anytime you think you may need emergency care. For example, call if: ?? You passed out (lost consciousness). ?? You pass maroon or bloody stools. ?? You have trouble breathing. Call your doctor now or seek immediate medical care if: ?? You have pain that does not get better after you take pain medicine. ?? You are sick to your stomach or cannot drink fluids. ?? You have new or worse belly pain. ?? You have blood in your stools. ?? You have a fever. ?? You cannot pass stools or gas. Watch closely for changes in your health, and be sure to contact your doctor if you have any problems. Where can you learn more? [facility] View your After Visit Summary and more online at [email or web address] If you would like to provide feedback about your hospital experience, please call the Office of Patient and Family Relations at . If you have received this After Visit Summary in error, please immediately return it in person to the department, or notify the [facility] Privacy Office by calling toll free at between the hours of 8AM and 5PM to arrange for our retrieval of the documents at no cost to you. Content Version: 12.2 ?? [phone] [employer]. Care instructions adapted under license by [facility]. If you have questions about a medical condition or this instruction, always ask your healthcare professional. [employer] disclaims any warranty or liability for your use of this information. documented in this encounter Medications at Time of Discharge Medication Sig Dispensed Refills Start Date End Date betamethasone 0 07/19/2020 dipropionate (DIPROLENE) 0.05 % Cream HYDROcodone-acetaminophe TAKE 1 TABLET BY 0 07/18 n ([facility]) 10-325 mg MOUTH TWICE DAILY Tablet NEEDED [...] 6 09/14/2012 mg tablet Dx code :250.60 traZODone (Desyrel) 50 TAKE ONE TABLET BY 30 tablet 0 04/2606/25/2021 mg Tablet MOUTH EVERY EVENING hydrALAZINE (Apresoline) TAKE ONE TABLET BY 60 tablet 0 05/17/2021 25 mg Tablet MOUTH TWICE A DAY fludrocortisone [...] PM. Pancreas transplant 08/28/2013. ICD code Z94.83 carvediloL (Coreg) 6.25 Take 1 tablet by 180 tablet 2 201905/03/2021 mg Tablet mouth 2 times daily for 270 days. losartan (COZAAR) 100 mg Take 1 tablet by 30 tablet 11 06/2106/17/2021 TabletIndications: mouth nightly. Aftercare following organ transplant documented as of this encounter H&P Notes Felisa Shaw MD - 04/25/2021 4:50 PM EDT Gastroenterology and Hepatology Pre-Procedure History and Physical Exam Procedure: EGD: Indication: oropharyngeal dysphagia since stroke in 2019, modified barium swallow shows barium retention around C5 level Past hx of diabetic gastroparesis Type 1 diabetic treated with pancreas transplant Patient Active Problem List Diagnosis Code ??? LBP radiating to right leg M54.5 ??? Diabetes mellitus E11.9 ??? Stroke-like symptoms R29.90 ??? Hypertension I10 ??? Gastroparesis due to DM E11.43, K31.84 ??? Migraine G43.909 ??? Pancreatitis K85.90 ??? Immunosuppression D84.9 ??? Ulnar neuropathy G56.20 ??? Nevus D22.9 ??? Vitiligo L80 ??? Dehydration E86.0 ??? 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 Z94.83 ??? Depression F32.9 ??? Aftercare following organ transplant Z48.298 ??? Encounter for long-term (current) use of other medications Z79.899 ??? Prophylactic immunotherapy Z29.8 ??? Fever R50.9 ??? Coxsackie virus infection B34.1 ??? Other chest pain R07.89 ??? Hypertension secondary to other renal disorders I15.1, N28.89 ??? TIA (transient ischemic attack) G45.9 ??? Ischemic stroke I63.9 ??? Globus sensation R09.89 ??? Intervertebral disc disorder with radiculopathy of lumbar region M51.16 EXAM: HEENT: Airway examined, oropharynx clear Mallampati Score: II (soft palate, uvula, fauces visible) LUNGS: Clear to auscultation HEART: Regular rate and rhythm, normal S1, S2 ABDOMEN: Normal bowel sounds, soft, non tender, non distended, A/P Proceed with the planned endoscopic procedure. ASA 2 - Patient with mild systemic disease with no functional limitations Sedation Plan: anesthesia Risks and benefits of the procedure explained to the patient. Consent signed. documented in this encounter Plan of Treatment Not on filedocumented as of this encounter Procedures Procedure Name Priority Date/Time Associated Diagnosis Comme nts EGD, UPPER GI 04/25/2021 4:47 PM EGD ENDOSCOPY EDT MAC Within 3 weeks UPPER GI ENDOSCOPY Routine 04/25/2021 4:39 PM Res ults for this EDT procedure are i n the results section. documented in this encounter Results UPPER GI ENDOSCOPY (04/25/2021 4:39 PM EDT) [facility] Method Time Signature UPPER GI [facility] ENDOSCOPY Endoscopy Procedure Date: 04/25/2021 4:39 PM ? Patient Name: Richard Hsu ? Date of : 1965 ? Age: 55 ? Order #: [id number] ? Instrument Name: [id number] ? Procedure: ? Upper GI endoscopy Indications: ? Oropharyngeal phase dysphagia Providers: ? Felisa Shaw MD, Meryl welch, ? Conor Ahumada, Rock Crushing Machine Operator Referring MD: ?Anna Mullen MD Medicines: ? See the Anesthesia note for ? documentation of the administ ered ? medications Complications: ? No immediate complications. Procedure: ? Pre-Anesthesia Assessment: ? - Prior to the procedure, a H istory ? and Physical was performed, a nd ? patient medications, allergie s and ? sensitivities were reviewed. The ? patient's tolerance of previo us ? anesthesia was reviewed. ? - The risks and benefits of t he ? procedure and the sedation op tions ? and risks were discussed with the ? patient. All questions were a nswered ? and informed consent was obta ined. ? The procedure, indications, b enefits, ? risks and alternatives were e xplained ? to the patient. Specifically ? discussed were potential ? complications including, but not ? limited to, bleeding, perfora tion, ? infection, missing a cancer, and ? adverse medication reactions. The ? Endoscope was introduced thro [facility] the ? mouth, and advanced to the ird part ? of duodenum. The patient tole rated ? the procedure well. The upper GI ? endoscopy was accomplished wi out ? difficulty. The patient tamara ated the ? procedure well. ? Findings: ? The examined esophagus was normal. ? The entire examined stomach was normal. ? The examined duodenum was normal. ? Moderate Sedation: ? Not applicable - See Anesthesia documentation Impression: ?- Normal esophagus. No luminal cau se ? for dysphagia found. Dysphagi a is ? likely neurologic in nature. ? - Normal stomach. ? - Normal examined duodenum. ? - No specimens collected. Recommendation: ?Continue to work with speech ? pathology. ? Attending Participation: ? I personally performed the entire procedure. ? I was present during the intraservice time as ? documented by the sedation RN. ? Felisa Shaw MD 04/25/2021 5:01:17 PM This report has been signed electronically. Number of Addenda: 0 Note Initiated On: 04/25/2021 4:39 PM Specimen (Source) Anatomical Collection Method Collection Time Re ceived Time Location / / Volume Laterality 04/25/2021 4:39 PM EDT Anna Mullen MD GENERAL SURGICAL ORDERABLES Performing Organization Address City/State/ZIP Code Phon e Number [facility] documented in this encounter Visit Diagnoses Not on filedocumented in this encounter Administered Medications Inactive Administered Medications - up to 3 most recent administrations Medication Order MAR Action Action Date Dose Rate Site lactated ringers infusion New Bag 04/25/2021 4:18 PM EDT 100 mL/hr 100 mL/hr 100 mL/hr, Intravenous, CONTINUOUS, Starting on Vanessa 04/25/21 at 1630, Until Vanessa 04/25/21 at 1747, Endoscopy (Day of Procedure) documented in this encounter Active and Recently Administered Medications Times are shown in EDT. Continuous Medication Order 04/23/2021 04/24/2021 04/25/2021 lactated ringers infusion (CANCELED) 1618 (New Bag - Provider: Joy Torres, RN) 100 mL/hr, at 100 mL/hr, Intravenous, CO NTINUOUS, Starting on Vanessa 04/25/21 at 1630, Until Vanessa 04/25/21 at 1747, Endo (Day of Procedure) documented in this encounter Care Teams Inspector Radar And Electronics Relationship Specialty Start Date End Date Anna Mullen MD PCP - General 12/03/10 [address] [place] [address] documented as of this encounter
--- OUTSIDE RECORDS SUMMARY | 2022-03-13 18:24 | XMS_ITS | Encounter Summary ---
:1965 Author Organization [facility] [place] [address] Care Team Providers Name Role Phone Anna [...] Expiration Date Visits Requ ested Visits Authorized [id number] 1 1 Encounter Details Date Type Department Care Team Description 08/15/2020 Surgery Pain Management Oracio Tran MD INJECTION, EPIDURAL, [facility] LUM BAR [facility] (CAUDAL), WITH IMAGING [facility] PAIN CLINIC GUIDANCE (WRVU 1.8) [place] [address] [place] [address] [phone] Social History Tobacco Use Types Packs/Day Years [...] documented in this encounter Discharge Instructions Discharge InstructionsScAldair faulkner RN - 08/15/2020 11:33 AM EST Pain [...] TAKE 1 TABLET BY 0 07/18 n ([place]) 10-325 mg MOUTH TWICE DAILY Tablet NEEDED [...] DIAGNOSTIC performed by Anna Rapp MD at [facility] ENDOSCOPY ??? PRO TRANSPLANT ALLOGRAFT PANCREAS 08/28/2013 @PANCREATIC TRANSPLANT performed by Iraj Keller MD at [facility] MAIN OR ??? PRO TRANSPLANT, PREP DONOR PANCREAS 08/28/2013 @PREPARATION CADAVERIC PANCREAS, STANDARD performed by Iraj Keller MD at [facility] MAIN OR ??? PRO UNLISTED PROCEDURE, MUSCULOSKELETAL SYSTEM, GENERAL 10 years carpel tunnel ??? PRO UPPER GI ENDOSCOPY, BIOPSY 12/31/2011 UPPER GASTROINTESTINAL ENDOSCOPY,WITH BIOPSY SINGLE OR MULTIPLE performed by MAURICIO BHAKTA at [facility] ENDOSCOPY ??? PRO UPPER GI ENDOSCOPY, BIOPSY N/A 08/15/2015 EGD WITH BIOPSY performed by Mauricio Bhakta MD at [facility] ENDOSCOPY ??? SHOULDER SURGERY ??? UPPER GI ENDOSCOPY, EXAM 12/31/2011 UPPER GI ENDOSCOPY performed by MAURICIO BHAKTA at [facility] ENDOSCOPY ALLERGIES: Lisinopril, Esomeprazole, Nexium [esomeprazole magnesium], Omeprazole, Prilosec [omeprazole magnesium], Reglan [metoclopramide hcl], and Simvastatin MEDICATIONS: No current facility-administered medications on file prior to encounter. Current Outpatient Medications on File Prior to Encounter Medication Sig Dispense Refill ??? betamethasone dipropionate (DIPROLENE) 0.05 % Cream ??? 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 Lives with ROS: Pt denies recent [...] Fellow [facility] [address] [phone] [email or web address] documented in this encounter Miscellaneous Notes Op Note - Maryann Montgomery MD - 08/15/2020 11:35 AM EST Pain Management Operative Note Patient Name: Richard Hsu : [id number] MR#: [id number] Case Date: 08/15/2020 Surgeon: Surgeon(s) and Role: [...] steroid injection by Anna Mullen MD [address] [place] [address]. The patient complains of low back pain [...] Fellow [facility] [address] [phone] [email or web address] CC: Anna Mullen MD [address] [place] [id number] Associated attestation - Oracio Alejandra MD - [...] S documented in this encounter Visit Diagnoses Not on filedocumented in this encounter Administered Medications Inactive Administered Medications - up to 3 most recent administrations Medication Order MAR Action Action Date Dose Rate Site iohexoL (Omnipaque) (240 mg/mL) Given 08/15/2020 11:31 AM EST 1 mL injection solution ONCE PRN, Starting on Thu08/15/20 at 1131, Until Thu08/15/20 at 1335, Intra-Operative (Intra-Procedure), Routine methylPREDNISolone acetate (DEPO-Medrol) (80 Given 11:32 AM EST 80 mg mg/mL) injection ONCE PRN, Starting on Thu08/15/20 at 1132, Until Thu08/15/20 at 1335, Intra-Operative (Intra-Procedure), Routine documented in this encounter Active and Recently [...] Routine documented in this encounter Care Teams Postal Service Mail Processor Relationship Specialty Start Date End Date Anna Mullen MD PCP - General 12/03/10 [address] [place] [address] documented as of this encounter
--- OUTSIDE RECORDS SUMMARY | 2022-03-13 18:24 | XMS_ITS | Encounter Summary ---
:1965 Author Organization [facility] [place] [address] Care Team Providers Name Role Phone Anna [...] Expiration Date Visits Requ ested Visits Authorized [id number] 1 1 Encounter Details Date Type Department Care Team Description 04/25/2021 Surgery Gastroenterology at [facility] Felisa Shaw MD EGD, UPPER GI [facility] D rive [facility] [place] [address] GASTROENTEROLOGY [place], [place] [address] Social History Tobacco Use Types [...] the day after the procedure, use an fguk-pgn-qcyqlmw spray to numb yourthroat. Sucking on throat [...] occurs, please contact your Doctor. Please call [phone] before 8pm Mon-Fri with problems, questions or concerns. If you call after 8pm or on weekends, call the Hospital at [phone] and ask to speak to the Acid Purifier adjunct communications faculty member and the barn operator will contact that person for you. When should you call for help? Call [phone] anytime you think you may need emergency [...] any problems. Where can you learn more? [facility] View your After Visit Summary and more online at [email or web address] If you would like to provide feedback [...] cost to you. Content Version: 12.2 ?? [phone] [employer]. Care instructions adapted under license by [facility]. If you have questions about a medical condition or this instruction, always ask your healthcare professional. [employer] disclaims any warranty or liability for your use of this information. documented in this encounter Medications at Time of Discharge Medication Sig Dispensed Refills Start Date End Date betamethasone 0 07/19/2020 dipropionate (DIPROLENE) 0.05 % Cream HYDROcodone-acetaminophe TAKE 1 TABLET BY 0 07/18 n ([place]) 10-325 mg MOUTH TWICE DAILY Tablet NEEDED [...] UPPER GI ENDOSCOPY (04/25/2021 4:39 PM EDT) [facility] Method Time Signature UPPER GI [facility] ENDOSCOPY Endoscopy Procedure Date: 04/25/2021 4:39 PM ? Patient Name: Richard Hsu ? N: [id number] ? Date of : 1965 ? Age: 55 ? Order #: [id number] ? Instrument Name: [id number] ? Procedure: ? Upper GI endoscopy Indications: ? Oropharyngeal phase dysphagia Providers: ? Felisa Shaw MD, Meryl welch, ? Conor Ahumada, Installer Soft Top Referring MD: ?Anna Mullen MD Medicines: ? [...] reactions. The ? Endoscope was introduced thro [facility] the ? mouth, and advanced to the [...] Procedure) documented in this encounter Care Teams Assistant Store Leader Relationship Specialty Start Date End Date Anna Mullen MD PCP - General 12/03/10 [address] [place] [address] documented as of this encounter
--- OUTSIDE RECORDS SUMMARY | 2022-03-13 18:24 | XMS_ITS | Encounter Summary ---
:1965 Author Organization [facility] [place] [address] Care Team Providers Name Role Phone Anna Mullen MD Primary Care Provider Reason for Visit Reason Comments Medication Refill Encounter Details Date Type Department Care Team Description 04/11/2021 Refill Solid Organ Transplant at Eriberto Emery MD [facility] ankit [place] [address] [place] [address] [phone] (Wo rk) Social History Tobacco Use Types [...] on filedocumented in this encounter Care Teams Cylinder Sander Operator Relationship Specialty Start Date End Date Anna Mullen MD PCP - General 12/03/10 [address] [place], [place] [id number] documented as of this encounter
--- OUTSIDE RECORDS SUMMARY | 2022-03-13 18:24 | XMS_ITS | Encounter Summary ---
:1965 Author Organization [facility] [place] [address] Care Team Providers Name Role Phone Anna Mullen MD Primary Care Provider Reason for Visit Consultation (Routine) - Closed Specialty Diagnoses / Procedures Referred By Contact Refer red To Contact Pulmonology Diagnoses SOB (shortness of breath) PND (paroxysmal nocturnal dyspnea) Eriberto Melgar, [facility] [address] [place] [address] [place] [address] Referral ID Status Reason Start Date Expiration Date Visits V isits Requested Authorized [id number] Closed Consult, 05/13/2021 05/13/2022 1 1 Test & Treat Encounter Details Date Type Department Care Team Description 06/25/2021 TH Visit Pulmonology at [facility] Clayton Villagran, Persistent dyspnea following respiratory infection (Primary Dx); (TeleHealth) [facility] Vaccine counseling [facility] [id number] Pulmonary [phone] [place], [place] [address] Social History Tobacco Use Types Packs/Day Years Used Date Never Smoker Smokeless Tobacco: Never Used Alcohol Use Standard Drinks/Week Comments No 0 (1 standard drink = 0.6 oz pure alcoho l) history of abuse, stopped 1996 Sex Assigned at Date Recorded Male 05/29/2021 11:28 PM EDT documented as of this encounter Progress Notes Clayton Villagran MD - 06/25/2021 9:00 AM EDT Images from the original note were not included. [facility] Section of Pulmonary and Critical Care Medicine Outpatient Consultation Date of Encounter: 06/25/2021 Referring Provider: Eriberto Melgar MD [facility] [place] [address] PCP: Anna Mullen MD Reason for Evaluation: Dr. Melgar referred Mr. Hsu to the [facility] for a consultation for an opinion regarding the evaluation and management of dyspnea. I independently interviewed and examined the patient in the office and have reviewed available records. This was a telehealth virtual visit. History of Present Illness: Mr. Hsu's biggest concern today is ongoing difficulty with dyspnea that occurs primarily with exertion. His present difficulty with dyspnea began approximately 20 months ago (October 2019) and hasbeen gradually worsening. He has not had similar shortness of breath in the past prior to this episode. Onset of his shortness of breath was preceded by an acute cardiopulmonary illness. He contracted a respiratory infection he believes he got from his boss who had recently visited [facility]. Thismarked by shortness of breath coughing prolonged fever acute symptoms gradually resolved. He was nottested for SARS-CoV-2 at the time and subsequent nuclear capsid testing was negative approximately 4months later. Onset of his shortness of breath was not preceded by changes in medications. Other history is notable for recent TIA with associated dysphagia and globus sensation, but dyspnea preceded this event. Other history is notable for pancreas transplant in 2012 and ongoing use of immunosuppressive therapy. He also has chronic lumbar radicular pain At baseline he experiences dyspnea on exertion with with moderate activity; this limits exertional tolerance to walking up a slight incline needing frequent stops to catch his breath. He does not have limitations in activities of daily living attributed to his shortness of breath. There has not been documented hypoxemia. He currently is not on home oxygen therapy.. He does not have prior diagnosis of a sleep disorder and has had past negative sleep studies. He is scheduled for another study in the near future. He does describe occasionally waking at night gasping. He does not have history of heart failure or cardiomyopathy. Since the onset of dyspnea he has not had a pattern of recurrent exacerbations. He has not been hospitalized for breathing problems. Mr. Hsu characterizes his dyspnea in terms of chest tightness and being unable to take a deep breath. Symptoms are bothersome throughout the day. He does not have associated symptoms such as wheezing or cough. He does not note any leg burning with exertion. He has some minimal periodic right ankleedema. Beyond exertion, his shortness of breath lifting heavy things. He does not describe triggers such ascold air or other factors. Dyspnea is reliably reproducible with the same level of activity. He is not describe any refractory interval after symptoms are provoked. He does woodworking in his home. His dyspnea seems to be alleviated to some degree by resting up to 5 minutes. Albuterol was not helpful. He did experience transient (minutes long) improvements in symptoms with the use of mometasone-formoterol (Dulera). He does not have a prior history of asthma, frequent episodes of bronchitis or COPD. reports that he has never smoked. He has never used smokeless tobacco. He does not have known coronary artery disease or cardiomyopathy. Previous cardiac testing has included dobutamine stress echo and nuclear perfusion studies that showed no evidence of ischemia. He doesnot have a history of venous thromboembolism. I reviewed medical, surgical family and social histories and updated the chart as indicated. Past Medical and Surgical History: Past Medical History: Diagnosis Date ??? ASCVD [...] DIAGNOSTIC performed by Anna Rapp MD at [facility] ENDOSCOPY ??? PRO TRANSPLANT ALLOGRAFT PANCREAS 08/28/2013 @PANCREATIC TRANSPLANT performed by Iraj Keller MD at [facility] MAIN OR ??? PRO TRANSPLANT, PREP DONOR PANCREAS 08/28/2013 @PREPARATION CADAVERIC PANCREAS, STANDARD performed by Iraj Keller MD at [facility] MAIN OR ??? PRO UNLISTED PROCEDURE, MUSCULOSKELETAL SYSTEM, GENERAL 10 years carpel tunnel ??? PRO UPPER GI ENDOSCOPY, BIOPSY 12/31/2011 UPPER GASTROINTESTINAL ENDOSCOPY,WITH BIOPSY SINGLE OR MULTIPLE performed by CLAYTON BHAKTA at [facility] ENDOSCOPY ??? PRO UPPER GI ENDOSCOPY, BIOPSY N/A 08/15/2015 EGD WITH BIOPSY performed by Clayton Bhakta MD at [facility] END[facility]COPY ??? PRO UPPER GI ENDOSCOPY, DIAGNOSTIC N/A 04/25/2021 EGD, UPPER GI ENDOSCOPY performed by Felisa Shaw MD at [facility] END[facility]COPY ??? SHOULDER SURGERY ??? UPPER GI ENDOSCOPY, EXAM 12/31/2011 UPPER GI ENDOSCOPY performed by CLAYTON BHAKTA at [facility] END[facility] Family History: Family History Problem (# of Occurrences) Relation (Name,Age of Onset) Alcohol Use Disorder (1) Father (sharmaine) Chronic Obstructive Pulmonary Disease (1) Father (sharmaine) Coronary Artery Disease (1) Maternal Grandmother (beto) Diabetes (1) Maternal Grandmother (beto) Heart Disease (1) Maternal Grandmother (beto) High Blood Pressure (2) Mother (kia), Brother (elsa) Stroke (1) Maternal Grandfather (ellen) Negative family history of: Asthma Social and Occupational History: Social History Socioeconomic History ??? Marital status: Spouse name: None ??? Number of children: None ??? Years of education: None ??? Highest education level: None Occupational History ??? 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 Smoking status: Never Smoker ??? Smokeless tobacco: Never Used Vaping Use ??? Vaping Use: Never used Substance and Sexual Activity ??? Alcohol use: No Comment: history of abuse, stopped 1996 ??? Drug use: No ??? Sexual activity: Yes Comment: deferred Other Topics Concern ??? Exercise: Patient reported Yes Comment: yard work, push ups situps ??? 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 Lives with Social Determinants of Health Financial Resource Strain: ??? Difficulty of Paying Living Expenses: Not on file Food Insecurity: ??? Worried About Running Out of Food in the Last Year: Not on file ??? Ran Out of Food in the Last Year: Not on file Transportation Needs: ??? Lack of Transportation (Medical): Not on file ??? Lack of Transportation (Non-Medical): Not on file Physical Activity: ??? Days of Exercise per Week: Not on file ??? Minutes of Exercise per Session: Not on file Housing Stability: ??? Unable to Pay for Housing in the Last Year: Not on file ??? Number of Places Lived in the Last Year: Not on file ??? Unstable Housing in the Last Year: Not on file Current Medications at Start of Encounter: Outpatient Medications Prior to Visit Medication Sig Dispense Refill ??? fish oil-omega-3 fatty acids 1,000 mg Capsule Take 2 g by mouth daily. ??? losartan (COZAAR) 100 mg Tablet TAKE 1 TABLET BY MOUTH EVERY NIGHT (REPLACING LISINOPRIL) 30 tablet 11 ??? diazePAM (Valium) 5 mg Tablet Take 1 tablet by mouth as needed for Anxiety. INSTRUCTIONS: Take 1-2 tablets (5mg - 10mg) by mouth 30 to 60 minutes prior to MRI procedure. 2 tablet 0 ??? rOPINIRole (Requip) 0.25 mg Tablet Take 0.25 mg by mouth daily. ??? hydrALAZINE (Apresoline) 25 mg Tablet TAKE ONE TABLET BY MOUTH TWICE A DAY 180 tablet 3 ??? Mometasone-Formoterol (Dulera) 200-5 mcg/actuation HFA Aerosol Inhaler Inhale 2 puffs into the lungs 2 times daily. ??? carvediloL (Coreg) 6.25 mg Tablet TAKE ONE TABLET BY MOUTH TWICE A DAY 180 tablet 0 ??? fludrocortisone (Florinef) 0.1 mg Tablet TAKE ONE TABLET BY MOUTH EVERY DAY 30 tablet 0 ??? mycophenolate (Cellcept) 250 mg Capsule TAKE TWO CAPSULES BY MOUTH TWICE A DAY 360 capsule 2 ??? Prograf 1 mg Capsule TAKE TWO CAPSULES BY MOUTH in AM and 1 capsule in PM. Pancreas transplant 08/28/2013. ICD code Z94.83 90 capsule 11 ??? betamethasone dipropionate (DIPROLENE) 0.05 % Cream ??? HYDROcodone-acetaminophen ([place]) 10-325 mg Tablet TAKE 1 TABLET BY MOUTH TWICE DAILY NEEDED FOR PAIN ??? acetaminophen (Tylenol) 500 mg Tablet Take 1,000 mg by mouth every 6 hours as needed for Pain. ??? amoxicillin (Amoxil) 500 mg Capsule TAKE 4 CAPSULES BY MOUTH 1 HOUR PRIOR TO DENTAL APPOINTMENT ??? OneTouch Ultra Blue Test Strip Strip TEST BLOOD SUGAR ONCE DAILY ??? verapamil SR (Calan-SR) 120 mg Tablet Sustained Release Take 120 mg by mouth daily. ??? gabapentin (Neurontin) 300 mg Capsule Take 300 mg by mouth 3 times daily. Takes 1 caps in the morning, 2 caps in the afternoon and 2 caps at night. ??? clopidogrel (PLAVIX) 75 mg Tablet Take [...] supply Dx code :250.60 60 tablet 6 ??? traZODone (Desyrel) 50 mg Tablet TAKE ONE TABLET BY MOUTH EVERY EVENING 30 tablet 0 No facility-administered medications prior to visit. Adverse Drug Reactions: Allergies Allergen Reactions ??? Lisinopril Shortness Of Breath ??? Oxycodone Hcl ??? Esomeprazole Other reaction(s): Diarrhea ??? Nexium [Esomeprazole Magnesium] Diarrhea Any acid reflux medication causes severe diarrhea ??? Omeprazole Other reaction(s): Diarrhea ??? Prilosec [Omeprazole Magnesium] Diarrhea ??? Reglan [Metoclopramide Hcl] TD ??? Simvastatin Physical Examination: There were no vitals taken for this visit. No exam for this telehealth encounter Labs: I personally reviewed relevant laboratory results which were significant for: I reviewed the available blood work. Hemogram from 04/16/2021 notable for normal hemoglobin with normal white blood cell count and normal platelets. Differential count was unremarkable and there were only 200 peripheral eosinophils. Renal function was normal with normal creatinine and BUN. Total plasma CO2 is 29 which has been stable for multiple months. No liver test abnormalities. Imaging: I personally reviewed imaging from 02/09/2020. Two-view chest x-ray showed clear lungs bilaterally with normal cardiomediastinal silhouette no pleural effusions. Echocardiogram: Stress echocardiogram in 2018 normal biventricular function and no evidence of inducible ischemia. Myocardial perfusion scan December 2018 without evidence of scar or ischemia. Pulmonary Function Tests: Date FVC FEV1 Ratio TLC RV RV/TLC ERV DLCO 6MWT 05/30/21 4.32 87% 3.49 90% 0.81 24.71 84% I personally reviewed flow-volume loops and other tests. Spirometry and diffusion capacity are normal. No exercise desaturation and appropriate heart rate response during exercise. Impression and Plan of Care: This is a middle-aged man with persistent dyspnea on exertion since episode of respiratory infectionin October 2020 without objective abnormalities on lung function testing, lab work or recent chest imaging. 1. Persistent dyspnea following respiratory infection History is compatible with prolonged post viral dyspnea. While this is recently received considerable attention as part of the post Covid syndrome is by no means you need to this virus and has been long described following severe bacterial and viral respiratory infections including pneumonia. Nevertheless timing and course of his descriptions are suspicious for COVID-19 though there is no objective evidence that he was in fact infected. Normal spirometry and diffusion capacity are reassuring, but some aspects of his shortness of breath including increased symptoms with exertion and minimal responseto bronchodilator are suggestive of respiratory muscle weakness can occasionally coexist with relatively preserved spirometry. Symptoms are not typical for asthma in their persistence and given poor response to typical treatment. Transient response to mometasone formoterol is difficult to explain given his lack of response to albuterol. At this point in time I think additional evaluation is indicatedto assess etiology of dyspnea before any therapeutic interventions could be considered. I recommend we get taking formal lung volumes and mouth pressures to assess for respiratory muscle weakness and repeat chest radiograph. - Pulmonary Function Testing; Future - XR Chest PA & Lateral (Generic); Future 2. Vaccine counseling He is fully vaccinated for COVID-19 and has received an appropriate booster. He has also been immunized for seasonal influenza. No other vaccine interventions are indicated. We discussed high prevalence of COVID-19 in our community at this time. Follow up PFT and CXR RUTH. Follow up to be determined once these are completed. I spent 30 minutes in direct discussion with the patient and 40 minutes reviewing imaging, reviewinglung function studies and reviewing lab tests. Clayton Villagran MD, PhD N [facility] AT [facility] [id number] Dept: [phone] Loc: [phone] documented in this encounter Plan of Treatment Not on filedocumented as of this encounter Results Pulmonary Function Testing (07/12/2021 [...] / FVC LLN 67 % COMPAS PFT [id number] Actual 3.55 L/s COMPAS PFT Pre-BD [id number] Pre-BD 104 % COMPAS PFT % of Predicted [id number] 3.41 L/s COMPAS PFT Predicted [id number] Pre-BD 0.12 COMPAS PFT Z-Score MVV Predicted [...] and F EV1 are not significantly changed. Clayton Villagran MD PFT ORDERABLES Performing Organization Address City/State/ZIP Code Phon e Number COMPAS PFT XR Chest PA & Lateral (Generic) (07/12/2021 [...] who have questions please contact the health health care analyst that requested your imaging first. ? Narrative [...] ho have questions please contact the health health care analyst that requested your imaging first. Clayton Villagran MD IMG DX ORDERABLES documented in this encounter Visit Diagnoses Diagnosis Persistent dyspnea following respiratory infection - Primary Other dyspnea and respiratory abnormalit y Vaccine counseling SOB (shortness of breath) Shortness of breath Persistent dyspnea following respiratory infection Other dyspnea and respiratory abnormalit y Persistent dyspnea following respiratory infection Other dyspnea and respiratory abnormalit y documented in this encounter Care Teams Odd Ticket Clerk Relationship Specialty Start Date End Date Anna Mullen MD PCP - General 12/03/10 [address] [place] [address] documented as of this encounter
--- OUTSIDE RECORDS SUMMARY | 2022-03-13 18:24 | XMS_ITS | Encounter Summary ---
:1965 Author Organization [facility] [place] [address] Care Team Providers Name Role Phone Anna Mullen MD Primary Care Provider Reason for Visit Reason Comments Medication Refill Encounter Details Date Type Department Care Team Description 06/14/2021 Refill Solid Organ Transplant Eriberto Melgar Aftercare following at [facility] MD Arlyn organ transplant [facility] [place] [address] TRANSPLANT SURGERY [phone] [place], [place] [address] (Wo rk) Social History Tobacco [...] as of this encounter Visit Diagnoses Diagnosis Aftercare following organ transplant documented in this encounter Care Teams Quality Control Engineering Technician Relationship Specialty Start Date End Date Anna Mullen MD PCP - General 12/03/10 [address] [place], [place] [address] documented as of this encounter
--- OUTSIDE RECORDS SUMMARY | 2022-03-13 18:24 | XMS_ITS | Encounter Summary ---
:1965 Author Organization [facility] [address] Care Team Providers Name Role Phone Anna Mullen MD Primary Care Provider Reason for Referral Diagnostic Test (Routine) - New Request Specialty Diagnoses / Procedures Referred By Contact Refer red To Contact Diagnoses Ischemic stroke Ni Child APRN [facility] Vascular Lab 3v Procedures Carotid Duplex, Bilateral [facility] [place] [address] [place] [address] Referral ID Status Reason Start Date Expiration Visits Visits Date Requested Authorized [id number] New Request Test Only 05/31/2021 05/31/2022 1 1 Diagnostic Test (Routine) - Closed Specialty Diagnoses / Procedures Referred By Contact Refer red To Contact Radiology Diagnoses Ischemic stroke Ni Child APRN [facility] Rad Mri Procedures MRI Angiogram Head wo Contrast (Generic) [facility] [place] [address] [place] [address] Referral ID Status Reason Start Date Expiration Date Visits V isits Requested Authorized [id number] Closed Specialty 05/31/2021 11/29/2022 1 1 Service Requested Diagnostic Test (Routine) - Closed Specialty Diagnoses / Procedures Referred By Contact Refer red To Contact Radiology Diagnoses Ischemic stroke Ni Child, [employer] [facility] Rad Mri Procedures MRI Brain wo Contrast [facility] [place] [address] [place] [address] Referral ID Status Reason Start Date Expiration Date Visits V isits Requested Authorized [id number] Closed Specialty 07/02/2021 08/30/2021 1 1 Service Requested Reason for Visit Consultation (Urgent) - Closed Specialty Diagnoses / Procedures Referred By Contact Refer red To Contact Neurology Diagnoses Dysphagia, unspecified type TIA (transient ischemic attack) Ischemic stroke Eriberto Melgar MD [facility] Neurology 3c [facility] [place] [address] [place] [address] Referral ID Status Reason Start Date Expiration Date Visits V isits Requested Authorized [id number] Closed Consult, 05/13/2021 05/13/2022 1 1 Test & Treat Encounter Details Date Type Department Care Team Description 05/30/2021 Office Visit [place]rology [place] [facility] Ni Child, Ischemic stroke; [facility] [employer] [place] [address] Neurology Dept [place], [place] [address] (Wo rk) Social History Tobacco [...] Sign Reading Time Taken Comments Blood Pressure 153/83 05/30/2021 8:38 AM EDT Pulse 61 05/30/2021 8:38 AM EDT Temperature - - Respiratory Rate - - Oxygen Saturation - - Inhaled Oxygen Concentration - - Weight 104.6 kg (230 lb 9.6 05/30/2021 8:38 AM with corey es on oz) EDT Height 182.9 cm (6') 05/30/2021 8:38 AM reported EDT Body Mass Index 31.28 05/30/2021 8:38 AM EDT documented in this encounter Patient Instructions Patient InstructionsNi Almanzar, FRANCISCA - 05/30/2021 9:00 AM EDT Patient Education Learning About How to Prevent Another Stroke What can you do to prevent another stroke? After a stroke, people feel lots of different emotions. Some people are worried that they could haveanother stroke. Or they may feel overwhelmed by how much there is to learn and do. Some people feel sad or depressed. No matter what emotions you are feeling, you can give yourself some control and peace of mind by making a plan to lower your risk of having another stroke. Take your medicines You'll need to take medicines to help prevent another stroke. Be sure to take your medicines exactlyas prescribed. And don't stop taking them unless your doctor tells you to. If you stop taking your medicines, you can increase your risk of having another stroke. Some of the medicines your doctor may prescribe include: ?? Aspirin or some other blood thinner to prevent blood clots. ?? Statins and other medicines to lower cholesterol. ?? Blood pressure medicines to lower blood pressure. Manage other health problems You can help lower your chance of having another stroke by managing certain other health problems. Problems that increase your risk of having another stroke include: ?? High blood pressure. ?? High cholesterol. ?? Atrial fibrillation. ?? Diabetes. If you have any of these health problems, you can manage them with healthy lifestyle changes along with medicine. Adopt a healthy lifestyle ?? Do not smoke or allow others to smoke around you. If you need help quitting, talk to your doctor about stop-smoking programs and medicines. These can increase your chances of quitting for good. Smoking makes a stroke more likely. ?? Limit alcohol to 2 drinks a day for men and 1 drink a day for women. ?? Lose weight if you need to. Controlling your weight will help you keep your heart and body healthy. ?? Be active. Ask your doctor what type and level of activity is safe for you. ?? Eat heart-healthy foods, like fruits, vegetables, and high-fiber foods. It's also important to: ?? Get a flu shot every year. ?? Ask for help if you think you are depressed. Do stroke rehab Taking part in a stroke rehabilitation (rehab) program will help you to regain skills you lost or make the most of your abilities after a stroke. It also helps you take steps to prevent another stroke. Your rehab team will give you education and support to help you build new, healthy habits.You'll learn how to manage any other health problems that you might have. You'll also learn how to exercise safely, eat a healthy diet, and quit smoking if you smoke. You'll work with your team to decide what lifestyle choices are best for you. If your doctor hasn't already suggested it, ask him or her if stroke rehab is right for you. Know stroke symptoms Make sure you know the symptoms of stroke. FAST is a simple way to remember. Recognizing these symptoms helps you know when to call for medicalhelp. FAST stands for: ?? F oliverio drooping. ?? A rm weakness. ?? S peech difficulty. ?? T 911 jason to call . Follow-up care is a du part of your treatment and safety. Be sure to make and go to all appointments, and call your doctor if you are having problems. It's also a good idea to know your test results and keep a list of the medicines you take. Where can you learn more? Visit our health information library at [email or web address] You can also view health information on [employer], your personal patient account. Log in or sign up today. Enter I827 in the search box to learn more about Learning About How to Prevent Another Stroke. Current as of: July 04, 2020?Content Version: 12.9 ?? [employer]. Care instructions adapted under license by [facility]. If you have questions about a medical condition or this instruction, always ask your healthcare professional. [employer] disclaims any warranty or liability for your use of this information. documented in this encounter Progress Notes Ni Almanzar APRN - 05/30/2021 9:00 AM EDT [facility] Stroke [facility] Department [place] [address] t: [phone] / f: [phone] PCP: MD Reese Gonzalez (prefers Brant) is a 55 y.o. right-handed male with PMHx of pancreatic transplant (08/28/2013), HTN, ASCVD, depression, gastroparesis, migraines, hypothyroidism, chronic low back pain (prior right L4-L5 decompression by Dr. 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 He was found to have a presumed small right lateral medullary infarction (not seen on MRI), likely secondary to small vessel disease. He wasdischarged on 08/07/2019 and is being seen today for overdue follow up. Interval History: Our last clinic visit was a hospital check visit on 09/08/2019, with plan for follow up in 3 months. Brant was lost to follow up. Brant was referred back to the neurology clinic by Dr. Melgar (Brant's transplant provider) due to concerns for progressive worsening of globus sensation and dysphagia. Today, Brant also reports feeling like his left-sided weakness may have worsened. Following our last clinic visit, CLOUD SYSTEMS ADMINISTRATOR care was coordinated at [facility] per patient request. Brant denied need for PT/OT interventions. He initiated CLOUD SYSTEMS ADMINISTRATOR care but has since discontinued this, states it stopped mainly because of the COVIDpandemic. Saw Deyanira Reagan, CLOUD SYSTEMS ADMINISTRATOR at [facility], [place], [place]. Last visit approximately one year ago. Brant also reports having a Modified Barium Swallow and EGD since our last clinic visit. [place] was performed [place] [facility] MBS was performed through [facility]. Brant has chronic gastroparesis but denies new concerns today. Brant reports labile blood pressures. Has an automated BP cuff. Notes that readings are normotensive when not working. 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 Brant reports well-controlled blood sugars, noting that HbA1c ranges ~5-0 - 5.4%. Regarding cholesterol, he states: It's always been on the low side. Brant is taking medications as prescribed, tolerating them well without side effects or other concerns. BP medication adjustments have been made since our last clinic visit for further management of HTN. Brant is sleeping okay. States that he has always slept less than average, about 5 hours nightly. Denies concerns today. Brant has received the Moderna COVID vaccine as well as a booster. He denies further questions or concerns at this time, though requests Valium prior to any MRI imaging due to claustrophobia and previous lack of desired effect with other agents. Patient Active Problem List Diagnosis Code ??? LBP radiating to right leg M54.5 ??? Diabetes mellitus E11.9 ??? Stroke-like symptoms R29.90 ??? Hypertension I10 ??? Gastroparesis due to DM E11.43, K31.84 ??? Migraine G43.909 ??? Pancreatitis K85.90 ??? Immunosuppression D84.9 ??? Ulnar neuropathy G56.20 ??? Nevus D22.9 ??? Vitiligo L80 ??? Dehydration E86.0 ??? H/O pancreas transplant Z94.83 ??? Depression F32.9 ??? Aftercare [...] disorder with radiculopathy of lumbar region M51.16 ??? Dysphagia R13.10 ??? PND (paroxysmal nocturnal dyspnea) R06.00 ??? SOB (shortness of breath) R06.02 Allergies Allergen Reactions ??? Lisinopril Shortness Of Breath ??? Oxycodone Hcl ??? Esomeprazole Other reaction(s): Diarrhea ??? Nexium [Esomeprazole Magnesium] Diarrhea Any acid reflux medication causes severe diarrhea ??? Omeprazole Other reaction(s): Diarrhea ??? Prilosec [Omeprazole Magnesium] Diarrhea ??? Reglan [Metoclopramide Hcl] TD ??? Simvastatin Outpatient Medications Marked as Taking for the 05/30/21 encounter (Office Visit) with Ni Almanzar APRN Medication Sig Dispense Refill ??? losartan (COZAAR) 100 mg Tablet TAKE 1 TABLET BY MOUTH EVERY NIGHT (REPLACING LISINOPRIL) 30 tablet 11 ??? rOPINIRole (Requip) 0.25 mg Tablet Take [...] TWICE A DAY 180 tablet 0 ??? traZODone (Desyrel) 50 mg Tablet TAKE ONE TABLET BY MOUTH EVERY EVENING 30 tablet 0 ??? fludrocortisone (Florinef) 0.1 mg [...] dipropionate (DIPROLENE) 0.05 % Cream ??? HYDROcodone-acetaminophen (Armour) 10-325 mg Tablet TAKE 1 TABLET BY MOUTH TWICE DAILY NEEDED FOR PAIN ??? [DISCONTINUED] losartan (COZAAR) 100 mg Tablet Take 1 tablet by mouth nightly. 30 tablet 11 ??? acetaminophen (Tylenol) 500 mg Tablet Take 1,000 mg by mouth every 6 hours as needed for Pain. ??? amoxicillin (Amoxil) 500 mg Capsule TAKE 4 CAPSULES BY MOUTH 1 HOUR PRIOR TO DENTAL APPOINTMENT ??? [employer] Blue Test Strip Strip TEST BLOOD SUGAR [...] supply Dx code :250.60 60 tablet 6 EXAM: BP Readings from Last 3 Encounters: 05/30/21 153/83 05/13/21 144/82 04/25/21 132/82 General: Patient of apparent stated age, well nourished, well developed, NAD, pleasant, conversant HEENT: Neck supple, no meningismus, no occipital or midline cervical tenderness - decreased range ofmotion to the left and right, no thyromegaly Lungs: Unlabored breathing Ext: No edema, adequate pulses Neuro Exam: MSE: Alert, oriented to person, place, time, situation, follows simple and complex commands, speechfluent with minimal dysarthria CN: PERRL, L eye slight ptosis, EOMI, no nystagmus, facial sensation intact, no facial droop or asymmetry, tongue protrudes midline, uvula and palate elevate symmetrically, trap symmetric strength bilaterally UE: ?LUE: 4+/5 - LUE drift is present RUE: 5/5 ?LE: ?LLE: 4-/5 - most notable deficits are decreased dorsiflexion > plantarflexion RLE: 5/5 Normal bulk and tone Sensation: Decreased sensation of the LLE including the left foot (regarding the foot, patient reports this is chronic - multiple big toe fractures) Coordination: Intact finger-nose, no dysmetria of UEs, difficulty with rapid foot tapping on left -impaired dorsiflexion movement and slowed overall when compared to right, extinction to bilateral simultaneous stimulation when involving the LLE (neglects the left leg) Gait: Wide-based gait, negative Romberg, patient is unable to safely perform heel-toe assessment due to instability Modified Fajardo Scale (MRS) - 0: No symptoms at all 1: No significant disability despite symptoms; able to carry out all usual duties and activities 2: Slight disability; unable to carry out all previous activities, but able to look after own affairs without assistance 3: Moderate disability; requiring some help, but able to walk without assistance 4: Moderate disability; unable to walk without assistance and unable to attend to own bodily needs without assistance 5: Severe disability; bedridden, incontinent and requiring constant nursing care and attention 6: Data and Records Reviewed: ?? Lipids Lipid Panel Lab Results Component Value Date CHLPL 121 04/16/2021 HDL 46 08/17/2019 CHOLHDL 2.7 08/17/2019 TRIG 139 08/17/2019 LDLCHOL 50 08/17/2019 LDLDIRECT 92 08/07/2019 ?? Last 3 Hemoglobin A1Cs Lab Results Component Value Date HA1C 5.5 04/16/2021 HA1C 5.4 01/25/2021 HA1C 5.2 11/01/2020 EGD (04/25/2021) - Indication: oropharyngeal dysphagia since stroke in 2018, modified barium swallow shows barium retention around C5 level Past hx of diabetic gastroparesis Type 1 diabetic treated with pancreas transplant UPPER GI ENDOSCOPY [facility] Endoscopy Procedure Date: 04/25/2021 4:39 PM ? Patient Name: Reese Shukla ? Date of : 1965 ? Age: 55 ? Order #: [id number] ? Instrument Name: [id number] ? Procedure: ? Upper GI endoscopy Indications: ? Oropharyngeal phase dysphagia Providers: ? Felisa Shaw MD, Meryl Washburn, ?Conor Ahumada, Tool Engine Lathe Set Up Operator Referring MD: ?Anna Mullen MD Medicines: ? See the Anesthesia note for ?documentation of the administered ?medications Complications: ? No immediate complications. Procedure: ? Pre-Anesthesia Assessment: ?- Prior to the procedure, a History ?and Physical was performed, and ?patient medications, allergies and ?sensitivities were reviewed. The ?patient's tolerance of previous ?anesthesia was reviewed. ?- The risks and benefits of the ?procedure and the sedation options ?and risks were discussed with the ?patient. All questions were answered ?and informed consent was obtained. ?The procedure, indications, benefits, ?risks and alternatives were explained ?to the patient. Specifically ?discussed were potential ?complications including, but not ?limited to, bleeding, perforation, ?infection, missing a cancer, and ?adverse medication reactions. The ?Endoscope was introduced through the ?mouth, and advanced to the third part ?of duodenum. The patient tolerated ?the procedure well. The upper GI ?endoscopy was accomplished without ?difficulty. The patient tolerated the ?procedure well. ? Findings: ?The examined esophagus was normal. ?The entire examined stomach was normal. ?The examined duodenum was normal. ? Moderate Sedation: ?Not applicable - See Anesthesia documentation Impression: ?- Normal esophagus. No luminal cause ?for dysphagia found. Dysphagia is ?likely neurologic in nature. ?- Normal stomach. ?- Normal examined duodenum. ?- No specimens collected. Recommendation: ?Continue to work with speech ?pathology. ? Attending Participation: ?I personally performed the entire procedure. ?I was present during the intraservice time as ?documented by the sedation RN. ? Felisa Shaw MD 04/25/2021 5:01:17 PM This report has been signed electronically. Number of Addenda: 0 (05/02/2021) [facility] Office Visit (available in Media tab as a scanned doc) ENT: He continues to have this globus sensation in his throat. He has worked with swallowing, had imaging done of the neck. He does not like these get a little bit of narrowing of the esophagus at thelevel of C5. Whether this is coming from DJD of the spine/bone spur or if they think may be partly muscular is unclear. -Anna Mullen MD Clinical Impression and Recommendations: Reese Shukla (prefers Brant) is a 55 y.o. right-handed male with PMHx of pancreatic transplant (08/28/2013), HTN, ASCVD, depression, gastroparesis, migraines, hypothyroidism, chronic low back pain (prior right L4-L5 decompression by Dr. 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 He was found to have a presumed small right lateral medullary infarction (not seen on MRI), likely secondary to small vessel disease. He wasdischarged on 08/07/2019 and is being seen today for overdue follow up. Brant's main complaint today is worsening dysphagia and globus sensation as well as possible worseningof left-sided weakness. See neurologic exam findings noted above. His persistent swallowing symptomsare atypical but may represent an underlying deficit related to the vagus nerve. I have discussed his case with neurology attending, Dr. Martinez, and have requested that our next visit be shared for further weigh-in. Will plan to obtain MRI brain wo contrast, MRA head wo contrast, and bilateral carotid duplex for further stroke workup; it has been some time since Brant has had vessel imaging. I will also request records from his CLOUD SYSTEMS ADMINISTRATOR provider, to include MBS findings if obtainable. Note EGD findings above. Brant's blood pressure has been elevated beyond normal limits. We discussed plans to follow up with his PCP for further medication adjustments and future monitoring. In the interim, he will continue to monitor his blood pressure at home and will take antihypertensive medications daily as prescribed. We d iscussed stress management as well, as Brant does report that blood pressure elevation correlates withhis stressful job. #Presumed small right lateral medullary infarction (not seen on MRI), likely secondary to small vessel disease - #Globus sensation #Dysphagia - No medication changes were made today - Continue with statin and Plavix for secondary stroke prevention -- Future medication management / monitoring per PCP. Note that patient is on a low dose of atorvastatin. -- Aspirin was discontinued prior to today's clinic visit; patient advised by Dr. Martinez to continue with Plavix indefinitely - MRI brain / MRA head / Bilateral CUS ordered today -- PRN Valium for MRI imaging (claustrophobia) sent to patient's preferred pharmacy. Medication risks reviewed. Patient reports that , Tiffani, can drive him to/from imaging appointment given risk forsedation. - Per EGD recommendations, continue with CLOUD SYSTEMS ADMINISTRATOR interventions -- Patient deferred today, with future consideration pending further workup -- I have asked that our team financial secretary reach out to Brant's CLOUD SYSTEMS ADMINISTRATOR provider at [facility] to obtain records, including MBS results - Neurology appreciates PCP assistance with future PT/OT/CLOUD SYSTEMS ADMINISTRATOR referrals if patient is amenable - Follow up with PCP regarding elevated blood pressure readings. Goal normotension. Avoid hypotension. -- I have advised Brant to continue with regular blood pressure monitoring, assessing not only for hypertension, but also lows. - Continue to partner with PCP in management of modifiable secondary stroke risk factors - Continue with regular office visits with Dr. Melgar - visit frequency at provider's discretion - Return to vascular neurology clinic in ~2 months, sooner as needed Education provided today reinforced: patient-specific vascular risk factors, likely cause of the presumed stroke, prognosis and risk of recurrence, medications for stroke prevention, potential side effects of these medications, management of modifiable risk factors including heart healthy diet, increased physical activity, maintaining smoke free status, moderation in alcohol, weight management, bloodpressure, glucose and cholesterol control, warning signs of stroke, plan to contact EMS in event of recurrent symptoms. Results of diagnostic studies were reviewed. Compliance with treatment and regular follow- up with PCP was emphasized. This visit was a total of 50 minutes, which was spent on pre-charting and reviewing results of diagnostic studies as well as patient education and counseling as detailed above. Ni Almanzar APRN Personal Pager #[phone] Department of Neurology [place] [phone] documented in this encounter Plan of Treatment Not on filedocumented as of this encounter Procedures Procedure Name Priority Date/Time Associated Diagnosis Comme nts AMB REFERRAL TO Routine 06/23/2021 10:03 AM Dysphagia, unspeci fied NEUROLOGY EDT type TIA (transient ischemic attack) Ischemic stroke documented in this encounter Results MRI Angiogram [...] who have questions please contact the health child care associate teacher that requested your imaging first. ? Electronically signed by: Sameera Curran MD, [facility] ([phone]), at 07/04/2021 11:25 AM Narrative 07/04/2021 11:25 AM EDT EXAMINATION: MRI BRAIN WO CONTRAST, MRI ANGIOGRAM HEAD WO CONTRAST (GENERIC) CLINICAL HISTORY: Stroke, follow up Patient with worsening globus sensation, worsening left-sided weakness, ptosis. please assess for recurrent stroke. (acc ession [id number]), Patient with worsening globus sensation, worsening left-sided w eakness, ptosis. 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 Please assess for new stroke/vascular abnormalities. ( accession [id number]) TECHNIQUE: MRA of the head, and MRI of the brain, p erformed without contrast. 3-D MIP reconstructions were created. COMPARISON: Brain MRI dated 08/06/2019. FINDINGS: Brain MRI: The T2 and yosm-is-umlhzi images are laura ewhat limited by motion [...] please assess for recurrent stroke. (acc ession [id number]), Patient with worsening globus sensation, worsening left-sided w eakness, ptosis. 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 Please assess for new stroke/vascular abnormalities. ( accession [id number]) TECHNIQUE: MRA of the head, and MRI of the brain, p erformed without contrast. 3-D MIP reconstructions were created. COMPARISON: Brain MRI dated 08/06/2019. FINDINGS: Brain MRI: The T2 and glvh-il-[id number] images are laura ewhat limited by motion [...] ho have questions please contact the health child care associate teacher that requested your imaging first. Electronically signed by: Sameera Curran MD, [facility] ([phone]), at 07/04/2021 11:25 AM Ni Child APRN IMG MRI ORDERABLES MRI Brain wo Contrast [...] who have questions please contact the health child care associate teacher that requested your imaging first. ? Electronically signed by: Sameera Curran MD, [facility] ([phone]), at 07/04/2021 11:25 AM Narrative 07/04/2021 11:25 AM EDT EXAMINATION: MRI BRAIN WO CONTRAST, MRI ANGIOGRAM HEAD WO CONTRAST (GENERIC) CLINICAL HISTORY: Stroke, follow up Patient with worsening globus sensation, worsening left-sided weakness, ptosis. please assess for recurrent stroke. (acc ession [id number]), Patient with worsening globus sensation, worsening left-sided w eakness, ptosis. 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 Please assess for new stroke/vascular abnormalities. ( accession [id number]) TECHNIQUE: MRA of the head, and MRI of the brain, p erformed without contrast. 3-D MIP reconstructions were created. COMPARISON: Brain MRI dated 08/06/2019. FINDINGS: Brain MRI: The T2 and xmie-ww-[id number] images are laura ewhat limited by motion [...] please assess for recurrent stroke. (acc ession [id number]), Patient with worsening globus sensation, worsening left-sided w eakness, ptosis. 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 Please assess for new stroke/vascular abnormalities. ( accession [id number]) TECHNIQUE: MRA of the head, and MRI of the brain, p erformed without contrast. 3-D MIP reconstructions were created. COMPARISON: Brain MRI dated 08/06/2019. FINDINGS: Brain MRI: The T2 and occl-nz-zizhpz images are laura ewhat limited by motion [...] ho have questions please contact the health child care associate teacher that requested your imaging first. Electronically signed by: Sameera Curran MD, [facility] ([phone]), at 07/04/2021 11:25 AM Ni Child APRN IMG MRI ORDERABLES Carotid Duplex, Bilateral (06/13/2021 2:18 PM EDT) Component Value Ref Test Analysis Performed At [facility] Range Method Time Signature VB Text Department: Vascular Surgery Lab [facility] Report Patient: [id number] (REESE SHUKLA) CPT: 61502 ICD10: I63.9 Referring Physician: NI ALMANZAR ?? Phone: Indications: Globus sensation, dysphagia , [...] / Volume Laterality 06/13/2021 2:18 PM EDT Ni Child [employer]ER VASCULAR ORDERABLES Performing Organization Address City/State/ZIP Code Phon e Number [facility] documented in this encounter Visit Diagnoses Diagnosis Ischemic stroke Globus sensation Gastrointestinal malfunction arising fro m mental factors Ischemic stroke documented in this encounter Care Teams Chief Chemist Relationship Specialty Start Date End Date Anna Mullen MD PCP - General 12/03/10 [address] [place] [address] documented as of this encounter
--- OUTSIDE RECORDS SUMMARY | 2022-03-13 18:24 | XMS_ITS | Encounter Summary ---
:1965 Author Organization [facility] [place] [address] Care Team Providers Name Role Phone Anna Mullen MD Primary Care Provider Reason for Visit Reason Comments Medication Refill Encounter Details Date Type Department Care Team Description 04/20/2021 Refill Solid Organ Transplant at rEiberto Emery MD [facility] [place] [address] [place] [address] [phone] (Wo rk) Social History Tobacco Use Types [...] on filedocumented in this encounter Care Teams Bevel Face Stoner And Polisher Relationship Specialty Start Date End Date Anna Mullen MD PCP - General 12/03/10 [address] [place], [place] [id number] documented as of this encounter
--- OUTSIDE RECORDS SUMMARY | 2022-03-13 18:24 | XMS_ITS | Encounter Summary ---
:1965 Author Organization [place] [address] Care Team Providers Name Role Phone Anna Mullen MD Primary Care Provider Encounter Details Date Type Department Care Team Description 08/03/2020 Telephone [place] [facility] [place] [address] Social History Tobacco Use Types Packs/Day Years Used Date Never Smoker Smokeless Tobacco: Never Used Alcohol Use Standard Drinks/Week Comments No 0 (1 standard drink = 0.6 oz pure alcoho l) history of abuse, stopped 1996 Sex Assigned at Date Recorded Male 05/29/2021 11:28 PM EDT documented as of this encounter Miscellaneous Notes Telephone Encounter - Kika Diggs - 08/03/2020 9:29 AM EST ----- Message from Geoffrey Martinez MD sent at 07/30/2020 6:25 PM EST ----- Regarding: RE: Anti coag hold request Ok to hold that but I'd prefer that he take aspirin 81 mg a day if allowed while off clopidogrel. TL ----- Message ----- From: Kika Diggs Sent: 07/30/2020 4:34 PM EST To: Geoffrey Martinez MD Subject: Anti coag hold request Hi Dr. Martinez, I am writing to request permission for Mr. Hsu to hold Plavix for 7 days prior to ordered LumbarEpidural Steroid Injection. Thank you, [facility] documented in this encounter Plan of Treatment Not on filedocumented as of this encounter Visit Diagnoses Not on filedocumented in this encounter Care Teams Director Business Intelligence Relationship Specialty Start Date End Date Anna Mullen MD PCP - General 12/03/10 [address] [place] [address] documented as of this encounter
--- OUTSIDE RECORDS SUMMARY | 2022-03-13 18:24 | XMS_ITS | Encounter Summary ---
:1965 Author Organization [facility] [place] [address] Care Team Providers Name Role Phone Anna Mullen MD Primary Care Provider Encounter Details Date Type Department Care Team Description 08/06/2020 Telephone Pain and Spine Mitra peña at [facility] [place] [address] Social History Tobacco Use Types Packs/Day Years Used Date Never Smoker Smokeless Tobacco: Never Used Alcohol Use Standard Drinks/Week Comments No 0 (1 standard drink = 0.6 oz pure alcoho l) history of abuse, stopped 1996 Sex Assigned at Date Recorded Male 05/29/2021 11:28 PM EDT documented as of this encounter Miscellaneous Notes Telephone Encounter - Cathy Chaparro - 08/06/2020 8:37 AM EST Procedure: TFESI MRI required? yes (If yes, verify that updated MRI is in eDH) (Atlanto-Axial Joint injection, ESTEFANY; 1 year or <)(Caudal ROBIN, LESI, Thoracic ROBIN, TFESI Lumbar & Cervical; 2 years or <) Referring Provider: Aner Are you on any blood thinners? yes (If yes, specify medication type and prescribing provider for anticoagulant hold request) Medication: Plavix Prescribing provider: Anticoagulant Medication Therapy Protocol Guide for Procedures: Medication Must stop prior May resume Labs Coumadin (Warfarin) 5 days Per Prescriber 1 hour prior (<1.2) PT/INR Plavix (Clopidogrel) 7 days Per Prescriber n/a Fragmin (Dalteparin) 24 hours Per Prescriber n/a Lovenox (Enoxaparin) 24 hours Per Prescriber n/a Ticlid (Ticlopidine) 14 days Per Prescriber n/a Innohep (Tinzaparin) 24 hours Per Prescriber n/a Aggrenox (Dipyridamole) 7 days Per Prescriber n/a Pletal (Cilostazol) 2 days Per Prescriber n/a Pradaxa (Dabigretran) 5 days Per Prescriber n/a Xarelto (Rivaroxaban) 3 days 24 hours after n/a Eliquis (Apixaban) 3 days Per Prescriber n/a Inlyta (Axitinib) 24 hours 48 hours after n/a Agrylin (Anagrelide) N/a n/a Day of procedure Platelet count Effient (Prasugrel) 7 days Per Prescriber n/a Brilinta (Ticagrelor) 5 days Per Prescriber n/a Trental (Pentoxifylline) 2 days Per Prescriber n/a Aspirin (ASA, Kirsten, Excedrin) 6 days Per Prescriber n/a Aggrastat (Tirofiban) 8 hours Per Prescriber n/a Angiomax (Bivalirudin) Must be discussed with provider before scheduling Per Provider Argatroban Must be discussed with provider before scheduling Per Provider Arixta (Fondaparinux) 4 days Per Prescriber n/a Effient (Prasugrel) 7 days Per Prescriber n/a Elmiron (Pentosan) 7 days Per Prescriber n/a Heparin, subq (Hemochron) 12 hours Per Prescriber n/a Integrelin (Eptifibatide) 8 hours Per Prescriber n/a Iprivask (Desirudin) Must be discussed with provider before scheduling Per Provider Normiflo (Ardeparin) 24 hours Per Prescriber n/a Persantine (Dipyridamole) 2 days Per Prescriber n/a Reopro (Abciximab) 2 days Per Prescriber n/a Are you taking any NSAIDs? n/a Type of NSAID: Non-Steroidal Anti-Inflammatory Drug Guidelines: Medication Other Names Recommended Discontinuation Can Resume Aspirin - 81 mg and 325 mg (Note: If recommended or prescribed by provider, contact Pain Management)ASA, Kirsten, Excedrein 6 days Per Prescriber Diclofenac Voltaren 1 day 24 hours after Etodolac Lodine 2 days 24 hours after Flurbiprofen Ansaid 7 days 24 hours after Ibuprofen Advil, Motrin, Midol 1 day 24 hours after Indomethicin Indocin 2 days 24 hours after Ketorolac Toradol 1 day 24 hours after Meloxicam Mobic 4 days 24 hours after Nabumetone Relafen 6 days 24 hours after Naproxen Naprosyn, Aleve 4 days 24 hours after Oxaprozin Daypro 10 days 24 hours after Piroxicam Feldene 10 days 24 hours after Salsalate Disalcid 1 day 24 hours after Nutritional Supplements Fish Oil, Ginko Biloba, Garlic, Vitamin E, Bromelain, Nattokinase 7 days 24 hours after Currently taking any oral steroids (i.e. prednisone) or have you had a steroid injection within the past two weeks? no Are you currently taking or have you recently been treated with antibiotics? no Have you been in the ER or hospitalized recently? no If yes. Why? Do you have any allergies to anesthetics or steroids? no Are you diabetic? no (In the case of type I diabetes, steroids injections can make blood sugar spike) Is this being billed to workers comp or your regular insurance (verify insurance)? Worker's Comp no Insurance: [employer]BS [place] Completed by: Cathy Chaparro documented in this encounter Plan of Treatment Not on filedocumented as of this encounter Visit Diagnoses Not on filedocumented in this encounter Care Teams Steam Conditioner Filling Relationship Specialty Start Date End Date Anna Mullen MD PCP - General 12/03/10 [address] [place] [address] documented as of this encounter
--- OUTSIDE RECORDS SUMMARY | 2022-03-13 18:24 | XMS_ITS | Encounter Summary ---
:1965 Author Organization [facility] [place] [address] Care Team Providers Name Role Phone Anna Mullen MD Primary Care Provider Encounter Details Date Type Department Care Team Description 02/25/2021 Orders Only Solid Organ [place]plant [place] [address] Social History Tobacco Use Types Packs/Day [...] on filedocumented in this encounter Care Teams Clinical Trial Data Manager Relationship Specialty Start Date End Date Anna Mullen MD PCP - General 12/03/10 [address] [place], [place] [address] documented as of this encounter
--- OUTSIDE RECORDS SUMMARY | 2022-03-13 18:24 | XMS_ITS | Encounter Summary ---
:1965 Author Organization [facility] [place] [address] Care Team Providers Name Role Phone Anna Mullen MD Primary Care Provider Reason for Referral Consultation (Urgent) - Closed Specialty Diagnoses / Procedures Referred By Contact Refer red To Contact Neurology Diagnoses Dysphagia, unspecified type TIA (transient ischemic attack) Ischemic stroke Eriberto Melgar [place] [facility] [place] [facility] [place] [address] [place] [address] Referral ID Status Reason Start Date Expiration Date Visits V isits Requested Authorized [id number] Closed Consult, 05/13/2021 05/13/2022 1 1 Test & Treat Consultation (Routine) - Closed Specialty Diagnoses / Procedures Referred By Contact Refer red To Contact Pulmonology Diagnoses SOB (shortness of breath) PND (paroxysmal nocturnal dyspnea) Eriberto Melgar [facility] [place] [address] [address] [place] [address] Referral ID Status Reason Start Date Expiration Date Visits V isits Requested Authorized [id number] Closed Consult, 05/13/2021 05/13/2022 1 1 Test & Treat Encounter Details Date Type Department Care Team Description 05/13/2021 Office Visit Solid Organ FLORENCIO Melgar (shortness of breath); Transplant at [facility] Eriberto Stoddard MD PND (paroxysmal nocturnal dyspnea); [facility] D[facility]phagia , unspecified type; [facility] [address] [facility]ENSON (transient ischemic attack); [place] TRANSPLANT Ischemic stroke ; [id number] SURGERY H/O pancreas transplant; [phone] [place], [place] [address] Aftercare following organ transplant; [phone] Prophylactic im munotherapy (Work) Social History Tobacco Use Types Packs/Day Years Used Date Never Smoker Smokeless Tobacco: Never Used Alcohol Use Standard Drinks/Week Comments No 0 (1 standard drink = 0.6 oz pure alcoho l) history of abuse, stopped 1996 Sex Assigned at Date Recorded Male 05/29/2021 11:28 PM EDT documented as of this encounter Last Filed Vital Signs Vital Sign Reading Time Taken Comments Blood Pressure 144/82 05/13/2021 9:18 AM EDT Pulse 66 05/13/2021 9:18 AM EDT Temperature 36.8 ??C (98.2 ??F) 05/13/2021 9:18 AM EDT Respiratory Rate - - Oxygen Saturation - - Inhaled Oxygen Concentration - - Weight 100.5 kg (221 lb 9.6 oz) 05/13/2021 9:18 AM EDT Height - - Body Mass Index 30.05 08/15/2020 10:30 AM EST documented in this encounter Progress Notes Eriberto Melgar MD - 05/13/2021 9:20 AM EDT Transplant Medicine Follow Up Reese Perezjamie [id number] 1965 Transplant ID: Date: 05/13/2021 Patient: Reese Hsu Transplant Date: 08/28/2013 Organ(s) Pancreas Three Affiliated organ diagnosis: Diabetes Mellitus - Type I (Pancreas) Days from Transplant: 7 05/12 years History of Present Illness: Mr. Reese Hsu is a 55 y.o. years old male who is s/p Pancreas transplant on 08/28/2013 (Pancreas). His post-op course was uneventful except for an admission Aug 06 2019 for a CVA/TIA. He is followed by Dr. Martinez. He states he has a worsening deficit with difficulty swallowing (associated 9th cranial nerve? ). He has a follow up with Dr. Martinez. He has QUIÑONES, PND and gasps when sleeping on his abdomen. He has not been tested for dysphagia with a swallowing study nor undergone pulmonary function testing. He has been told he has asthma as well (see next paragraph). In 2019, he was evaluated here at [...] well controlled and compliant with his HCM testing. IN December 2019 he developed an acute asthmatic attack and was given 5 day prednisone burst. He also was placed on verapapmil by Dr. Mullen for slightly climbingBPs. ?? Historically: 1)two pre malignant skin lesions on his [...] every 10 years Annual flu shot NEEDS NO SHINGLES VACCINEs COVID vaccine: Moderna #1 [...] every 5 for non diabetics - NEEDS Three Affiliated kidney ultrasound looking for renal cell CA, [...] were neither positive or negative, except noted above ?? Active Ambulatory Problems Diagnosis Date Noted ??? LBP radiating to [...] Ischemic stroke 08/30/2019 ??? Globus sensation 09/15/2019 ?? Resolved Ambulatory Problems Diagnosis Date Noted ??? Edema 01/15/2012 ?? Past Medical History: Diagnosis Date ??? ASCVD [...] 11 years old ??? Nervous system disorder 1976 ??? Other ill-defined conditions(799.89) 3 years ago ??? Papillary fibroelastoma of heart ? Severe headache ? Past Surgical History Past Surgical History: Procedure Laterality Date ??? APPENDECTOMY ? BRAIN SURGERY ?? 1976 ?? stroke paralyze left side neck down ??? CARPAL TUNNEL RELEASE ? CREATED BY INTERFACE ? EGD-BIOPSY Procedure Date: 07/18/2009 ??? CREATED BY INTERFACE ? Entered not Verified Procedure Date: 10/24/2010 ??? PRO COLONOSCOPY, DIAGNOSTIC N/A 10/24/2014 ?? COLONOSCOPY, DIAGNOSTIC performed by Anna Rapp MD at [facility] ??? PRO TRANSPLANT ALLOGRAFT PANCREAS ?? 08/28/2013 ?? @PANCREATIC TRANSPLANT performed by Iraj Keller MD at [facility] OR ??? PRO TRANSPLANT, PREP DONOR PANCREAS ?? 08/28/2013 ?? @PREPARATION CADAVERIC PANCREAS, STANDARD performed by Iraj Keller MD at [facility] OR ??? PRO UNLISTED PROCEDURE, MUSCULOSKELETAL SYSTEM, GENERAL ?? 10 years ?? carpel tunnel ??? PRO UPPER GI ENDOSCOPY, BIOPSY ?? 12/31/2011 ?? UPPER GASTROINTESTINAL ENDOSCOPY,WITH BIOPSY SINGLE OR MULTIPLE performed by CLAYTON BHAKTA at [facility] ??? PRO UPPER GI ENDOSCOPY, BIOPSY N/A 08/15/2015 ?? EGD WITH BIOPSY performed by Clayton Bhakta MD at [facility] ??? SHOULDER SURGERY ? UPPER GI ENDOSCOPY, EXAM ?? 12/31/2011 ?? UPPER GI ENDOSCOPY performed by CLAYTON BHAKTA at [facility] ? Current Outpatient Medications: ??? Mometasone-Formoterol (Dulera) 200-5 mcg/actuation HFA Aerosol Inhaler, Inhale 2 puffs into the lungs 2 times daily., Disp: , Rfl: ??? carvediloL (Coreg) 6.25 mg Tablet, TAKE ONE TABLET BY MOUTH TWICE A DAY, Disp: 180 tablet, Rfl: 0 ??? traZODone (Desyrel) 50 mg Tablet, TAKE ONE TABLET BY MOUTH EVERY EVENING, Disp: 30 tablet, Rfl: 0 ??? fludrocortisone (Florinef) 0.1 mg Tablet, TAKE ONE TABLET BY MOUTH EVERY DAY, Disp: 30 tablet, Rfl: 0 ??? mycophenolate (Cellcept) 250 mg Capsule, TAKE TWO CAPSULES BY MOUTH TWICE A DAY, Disp: 360 capsule, Rfl: 2 ??? Prograf 1 mg Capsule, TAKE TWO CAPSULES BY MOUTH in AM and 1 capsule in PM. Pancreas transplant 08/28/2013. ICD code Z94.83, Disp: 90 capsule, Rfl: 11 ??? betamethasone dipropionate (DIPROLENE) 0.05 % Cream, , Disp: , Rfl: ??? HYDROcodone-acetaminophen (Kirkland) 10-325 mg Tablet, TAKE 1 TABLET BY MOUTH TWICE DAILY NEEDEDFOR PAIN, Disp: , Rfl: ??? losartan (COZAAR) 100 mg Tablet, Take 1 tablet by mouth nightly., Disp: 30 tablet, Rfl: 11 ??? acetaminophen (Tylenol) 500 mg Tablet, Take [...] code :250.60, Disp: 60 tablet, Rfl: 6 ??? hydrALAZINE (Apresoline) 25 mg Tablet, TAKE ONE TABLET BY MOUTH TWICE A DAY, Disp: 180 tablet, Rfl: 3 Immunization History Administered Date(s) Administered ??? Influenza PF, Split 05/31/2014, 05/19/2016, 08/17/2019 ??? Influenza Vaccine W/preservative, Quadrivalent 06/11/2019 ??? Influenza Vaccine w/Preservative, Split 05/22/2012 ??? Influenza Vaccine, Whole 06/11/2009 ??? Moderna Covid-19 Vaccine 10/31/2020, 11/28/2020, 04/18/2021 ??? Pneumococcal Conjugate (13 Valent) 02/22/2016 ??? Pneumococcal Polyvalent 23 08/31/2003, 06/14/2014, 08/17/2019 ??? Tdap Vaccine 03/05/2011 ? Allergies Allergen Reactions ??? Esomeprazole ? Other reaction(s): Diarrhea ??? Nexium [Esomeprazole Magnesium] Diarrhea ? Any acid reflux medication causes severe diarrhea ??? Omeprazole ? Other reaction(s): Diarrhea ??? Prilosec [Omeprazole Magnesium] Diarrhea ??? Reglan [Metoclopramide Hcl] ? TD ??? Simvastatin ? Vitals Office Visit from 05/13/2021 in Solid Organ Transplant at [facility] Weight 100.5 kg (221 lb 9.6 oz) Temp 36.8 ??C (98.2 ??F) Temp src Oral Heart Rate 66 BP 144/82 Patient Position Sitting Gen - AAO x 3 in NAD Skin - No exanthem.,pale HEENT - Mucous membranes moist. No dependent edema. PERRL Conj pink and sclerae white Neck supple, gulps while swallowing Neck no masses, mid line masses, nodes, JVD, bruits Chest symmetric expansion Cor accentuated S2, no murmur, gallop or rub No edema abdomen rotund, no HS megaly, masses Joints free from pathology, mobile Neuro grossly intact CN symmetric, DTRs 1+= UE/LE Results for REESE HSU ( ) as of 05/27/2021 21:49 Ref. Range 04/16/2021 09:40 04/16/2021 09:45 04/25/2021 16:39 WBC Latest Ref Range: 4.0 - 9.5 x10(3)/mcL 6.9 RBC Latest Ref Range: 4.58 - 5.54 x10(6)/mcL 4.54 (L) Hemoglobin Latest Ref Range: 13.7 - 16.5 gm/dL 13.8 Hematocrit Latest Ref Range: 40.5 - 48.5 % 40.2 (L) MCV Latest Ref Range: 82.9 - 93.1 fL 88.5 MCH Latest Ref Range: 27.5 - 32.1 pg 30.4 MCHC Latest Ref Range: 32.0 - 35.7 gm/dL 34.3 RDWSD Latest Ref Range: 36.0 - 45.0 fL 41.6 RDWCV Latest Ref Range: 11.4 - 13.8 % 12.7 Platelets Latest Ref Range: 145 - 357 x10(3)/mcL 202 MPV Latest Ref Range: 7.6 - 12.[address] % Latest Ref Range: 0.7 - 2.6 % 1.[address] Abs Latest Ref Range: 0.030 - 0.120 x10(6)/mcL 0.060 Immature Retic% Latest Ref Range: 0.0 - 15.6 % 8.7 Reticulated Hgb Latest Ref Range: 31.3 - 40.2 pg 35.1 nRBC % Auto Latest Units: % 0.0 nRBC Abs Auto Latest Ref Range: 0.000 - 0.000 x10(3)/mcL 0.000 Neutr Abs (ANC) Latest Ref Range: 1.70 - 6.10 x10(3)/mcL 3.20 Neutrophils % Latest Units: % 46.2 Immature Gran % Latest Units: % 0.40 Lymphocytes % Latest Units: % 41.7 Monocytes % Latest Units: % 8.2 Eosinophils % Latest Units: % 2.9 Basophils % Latest Units: % 0.6 Kym Gran Abs Latest Ref Range: 0.00 - 0.04 x10(3)/mcL 0.03 Lymphocytes Abs Latest Ref Range: 0.9 - 3.2 x10(3)/mcL 2.9 Monocyte Abs Latest Ref Range: 0.3 - 0.9 x10(3)/mcL 0.6 Eosinophils Abs Latest Ref Range: 0.0 - 0.4 x10(3)/mcL 0.2 Basophils Abs Latest Ref Range: 0.0 - 0.1 x10(3)/mcL 0.0 Sodium Latest Ref Range: 135 - 145 mmol/L 134 (L) Potassium Latest Ref Range: 3.5 - 5.0 mmol/L 4.1 Chloride Latest Ref Range: 98 - 107 mmol/L 97 (L) CO2 Latest Ref Range: 22 - 31 mmol/L 29 Anion Gap Latest Ref Range: 5 - 15 mmol/L 8 BUN Latest Ref Range: 10 - 20 mg/dL 17 Creatinine Latest Ref Range: 0.80 - 1.50 mg/dL 1.10 Estimated GFR Latest Ref Range: >=60 mL/min/1.73 m?? 76 Calcium Latest Ref Range: 8.5 - 10.5 mg/dL 9.4 Magnesium Latest Ref Range: 0.69 - 1.07 mmol/L 0.65 (L) Phosphorus Latest Ref Range: 2.5 - 4.5 mg/dL 3.1 Uric Acid Latest Ref Range: 3.5 - 8.5 mg/dL 5.8 Glucose Lvl Latest Ref Range: 65 - 199 mg/dL 102 Hemoglobin A1C Latest Ref Range: 4.3 - 5.6 % 5.5 Est Avg Gluc Latest Units: mg/dL 111 Total Protein Latest Ref Range: 6.1 - 8.0 gm/dL 7.1 Albumin Latest Ref Range: 3.2 - 5.2 gm/dL 4.5 Total Bilirubin Latest Ref Range: 0.2 - 1.3 mg/dL 0.9 Alk Phos Latest Ref Range: 40 - 130 unit/L 115 AST Latest Ref Range: 0 - 39 unit/L 20 ALT Latest Ref Range: 0 - 55 unit/L 22 Amylase Latest Ref Range: 28 - 100 unit/L 53 Lipase Latest Ref Range: 0 - 60 unit/L 23 Chol, Total Latest Units: mg/dL 121 Lipid Interpretation Unknown See Note Tacrolimus Lvl Latest Units: ng/mL 8.7 C-Peptide Latest Ref Range: 1.1 - 4.4 ng/mL 2.8 Color UA Latest Ref Range: Yellow Yellow Appearance UA Latest Ref Range: Clear Clear Spec Roll UA Latest Ref Range: 1.005 - 1.030 1.010 pH UA Latest Ref Range: 5.0 - 8.0 7.0 Protein UA Latest Ref Range: Negative mg/dL Negative Glucose UA Latest Ref Range: Negative mg/dL Negative Ketones UA Latest Ref Range: Negative mg/dL Negative Bilirubin UA Latest Ref Range: Negative mg/dL Negative Urobilinogen UA Latest Ref Range: Normal mg/dL Normal Blood UA Latest Ref Range: Negative mg/dL Negative Leukocytes UA Latest Ref Range: Negative mcL Negative Nitrite UA Latest Ref Range: Negative Negative Culture Reflexed Unknown No Sars-CoV-2 spike antibody detected Impression/ Plan: Reese Hsu is s/p Pancreas transplant. He was transplanted on 08/28/2013 (Pancreas). . Reese Hsu is maintaining good graft function. He remains hydrated. . I also informed . Reese Hsu to keep up with all recommended health maintenance visits, routine lab testing and screenings.He c/o muscle atrophy with pain in his right hand during this visit. He is following up with Dr. Martinez re: recent CVA with residual swallowing dysfunction. He needs a swallowing study and follow up with dr. Martinez as his problems are worsening. He needs PFTs and possibly breath hydrogen and or [place] to determine reflux aspiration risk. ?? Transplant Status : His blood sugars are well controlled with fasting levels wnl.Have chronic gastroparesis symptoms which are stable and with no escalation of symptoms.His amylase and lipase are stable indicating good graft function. ?? Immunosuppression Currently on Prograf: 2 mg/ 1mg and Cellcept: 500 mg BID .Prograf levels are in therapeutic range. ?? PO4/Mg Calcium,magnesium and phos levels are low suggests Vit D3 deficiency Dropped Vit D replacement..Continue with magnesium gluconate supplementation. ?? Hypertension Lisinopril 20 mg bid; ?? Hyponatremia Salt his food ; on Florinef ?? Discussion with the patient and/or family concerned the following: ? Diagnostic results or recommended studies ? Prognosis; ? Risks and benefits of management; ? Instructions for management; ? Compliance with treatment; ? Risk factor reduction; ? Patient and family education. Total time: 25 of 30 minutes in direct face to face mortgage counselor. Follow-up: 6 months Labs quarterly. documented in this encounter Plan of Treatment Scheduled Referrals Name Type Priority Associated Order Schedule Diagnoses Referral to Outpatient Referral Routine SOB (shortness of Ord ered: Pulmonology breath) 05/13/2021 PND (paroxysmal nocturnal dyspnea) documented as of this encounter Procedures Procedure Name Priority Date/Time Associated Diagnosis Comme nts AMB REFERRAL TO Routine 06/23/2021 10:03 AM Dysphagia, unspeci fied NEUROLOGY EDT type TIA (transient ischemic attack) Ischemic stroke documented in this encounter Results Referral to Neurology (06/23/2021 10:03 AM EDT) Eriberto Melgar MD OUTPATIENT REFERRAL ORDERABL ES documented in this encounter Visit Diagnoses Diagnosis SOB (shortness of breath) Shortness of breath PND (paroxysmal nocturnal dyspnea) Other dyspnea and respiratory abnormalit y Dysphagia, unspecified type TIA (transient ischemic attack) Unspecified transient cerebral ischemia Ischemic stroke H/O pancreas transplant 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 Aftercare following organ transplant Prophylactic immunotherapy Need for prophylactic immunotherapy documented in this encounter Care Teams Marketing Education Teacher Relationship Specialty Start Date End Date Anna Mullen MD PCP - General 12/03/10 [address] [place] [address] documented as of this encounter
--- OUTSIDE RECORDS SUMMARY | 2022-03-13 18:24 | XMS_ITS | Encounter Summary ---
:1965 Author Organization [facility] [place] [address] Care Team Providers Name Role Phone Anna Mullen MD Primary Care Provider Encounter Details Date Type Department Care Team Description 05/14/2021 Telephone Pul[place]ology [place] [facility] [place] [address] Social History Tobacco Use Types Packs/Day [...] on filedocumented in this encounter Care Teams Pond Scaler Relationship Specialty Start Date End Date Anna Mullen MD PCP - General 12/03/10 [address] [place] [address] documented as of this encounter
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
--- OUTSIDE RECORDS SUMMARY | 2022-03-13 18:25 | XMS_ITS | Encounter Summary ---
:1965 Author Organization [facility] [place] [address] Care Team Providers Name Role Phone Anna Mullen MD Primary Care Provider Reason for Visit Reason Onset Date Comments Medication Refill 05/31/2020 Encounter Details Date Type Department Care Team Description 05/31/2020 Refill Solid Organ Transplant at Eriberto Emery MD [facility] Unique pham [place] [address] [place] [address] [phone] (Wo rk) Social History Tobacco Use Types [...] on filedocumented in this encounter Care Teams Banker Mason Relationship Specialty Start Date End Date Anna Mullen MD PCP - General 12/03/10 [address] [place], [place] [address] documented as of this encounter
--- OUTSIDE RECORDS SUMMARY | 2022-03-13 18:25 | XMS_ITS | Encounter Summary ---
:1965 Author Organization [place] [address] Care Team Providers Name Role Phone Anna Mullen MD Primary Care Provider Reason for Visit Reason Comments Medication Refill Encounter Details Date Type Department Care Team Description 06/21/2020 Refill Solid [facility] at [facility] [place] [address] [place] [address] [phone] (Wo rk) Social History Tobacco Use Types [...] on filedocumented in this encounter Care Teams Non Destructive Evaluation Specialist Relationship Specialty Start Date End Date Anna Mullen MD PCP - General 12/03/10 [address] [place] [address] documented as of this encounter
--- OUTSIDE RECORDS SUMMARY | 2022-03-13 18:25 | XMS_ITS | Encounter Summary ---
:1965 Author Organization [facility] [place] [address] Care Team Providers Name Role Phone Anna Mullen MD Primary Care Provider Encounter Details Date Type Department Care Team Description 08/30/2019 Orders Only [place] [facility] [place] Martinez MD [facility] [place] [address] NEUROLOGY DEPT. [phone] [place], [place] [address] (Wo rk) Social History Tobacco [...] on filedocumented in this encounter Care Teams Groover And Striper Operator Relationship Specialty Start Date End Date Anna Mullen MD PCP - General 12/03/10 [address] [place], [place] [address] documented as of this encounter
--- OUTSIDE RECORDS SUMMARY | 2022-03-13 18:25 | XMS_ITS | Encounter Summary ---
:1965 Author Organization [facility] [place] [address] Care Team Providers Name Role Phone Anna Mullen MD Primary Care Provider Reason for Visit Reason Comments Medication Refill Encounter Details Date Type Department Care Team Description 05/29/2020 Refill Solid Organ Transplant at [facility] [place] [address] [place] [address] [phone] (Wo rk) Social History Tobacco Use Types [...] on filedocumented in this encounter Care Teams Business Manager Relationship Specialty Start Date End Date Anna Mullen MD PCP - General 12/03/10 [address] [place] [address] documented as of this encounter
--- OUTSIDE RECORDS SUMMARY | 2022-03-13 18:25 | XMS_ITS | Encounter Summary ---
:1965 Author Organization [place] [address] Care Team Providers Name Role Phone Anna Mullen MD Primary Care Provider Encounter Details Date Type Department Care Team Description 04/20/2020 Ancillary Procedure Radiology Library at Benjy Yang MD [facility] [place] [address] [place] [address] [phone] (Wo rk) Social History Tobacco Use Types [...] Associated Diagnosis Comme nts FILM LIBRARY Routine 04/20/2020 12:00 AM Results for this STORAGE ONLY MR EDT procedure ar e in SPINE the results section. documented in this encounter Results Film Library- Storage Only MR Spine (04/20/2020 12:00 AM EDT) Specimen (Source) Anatomical Location Collection Method / Collectio n Time Received Time / Laterality Volume Narrative [facility] - 04/30/2020 8:35 PM EDT This exam is auto-finalizing. It's purpo se is for storage only. Benjy Yang MD IMG FILM LIBRARY ORDERABLES Performing Organization Address City/State/ZIP Code Phon e Number RAD RAD [place], [place] documented in this encounter Visit Diagnoses Not on filedocumented in this encounter Care Teams Deputy Head Relationship Specialty Start Date End Date Anna Mullen MD PCP - General 12/03/10 [address] [place] [address] documented as of this encounter
--- OUTSIDE RECORDS SUMMARY | 2022-03-13 18:25 | XMS_ITS | Encounter Summary ---
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 Procedures PRO INJ, FORAMEN, L/S, 1 LEVEL INJECTION, ANESTHETIC AGENT AND/OR STEROID, TRANSFORAMINAL EPIDURAL, LUMBAR OR SACRAL, SINGLE LEVEL (WRVU 1.9) Referral ID Status Reason Start Date Expiration Date Visits Requ ested Visits Authorized [id number] 1 1 Encounter Details Date Type Department Care Team Description 06/21/2020 Ancillary Procedure Pain Management Bruce Tran usa, MD Pain [facility] [place] [address] [place] [address] [phone] Social History Tobacco Use Types Packs/Day Years [...] Associated Diagnosis Comme nts FILM LIBRARY Routine 06/21/2020 3:21 PM Pain Results f or this STORAGE ONLY PAIN EDT procedure are in [facility] the results section. documented in this encounter Results Film Library- Storage Only pain Clinic [facility] (06/21/2020 3:21 PM EDT) Specimen (Source) Anatomical Location Collection Method / Collectio n Time Received Time / Laterality Volume Narrative [facility]ANE - 06/21/2020 3:21 PM EDT See PACS for result report. Oracio Alejandra MD IMG FILM LIBRARY ORDERABLES Performing Organization Address City/State/ZIP Code Phon e Number [place], [place] documented in this encounter Visit Diagnoses Diagnosis Pain Generalized pain documented in this encounter Care Teams Cash Applications Manager Relationship Specialty Start Date End Date Anna Mullen MD PCP - General 12/03/10 [address] [place] [address] documented as of this encounter
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
--- OUTSIDE RECORDS SUMMARY | 2022-03-13 18:25 | XMS_ITS | Encounter Summary ---
:1965 Author Organization [facility] [place] [address] Care Team Providers Name Role Phone Anna Mullen MD Primary Care Provider Encounter Details Date Type Department Care Team Description 11/03/2019 Ancillary Procedure Radiology Library at Kelley Mullen [facility] [address] [address] [place] [address] [phone] Social History Tobacco Use Types Packs/Day Years [...] Associated Diagnosis Comme nts FILM LIBRARY Routine 11/03/2019 12:00 AM Results for this STORAGE ONLY DX EST procedure ar e in CHEST the results section. documented in this encounter Results Film Library- Storage Only DX Chest (11/03/2019 12:00 AM EST) Specimen (Source) Anatomical Location Collection Method / Collectio n Time Received Time / Laterality Volume Narrative RAD - 05/22/2020 11:05 AM EDT This exam is auto-finalizing. It's purpo se is for storage only. Anna Mullen MD IMG FILM LIBRARY ORDERABLES Performing Organization Address City/State/ZIP Code Phon e Number RAD [place], [place] documented in this encounter Visit Diagnoses Not on filedocumented in this encounter Care Teams Ui Programmer Relationship Specialty Start Date End Date Anna Mullen MD PCP - General 12/03/10 [address] [place] [address] documented as of this encounter
--- OUTSIDE RECORDS SUMMARY | 2022-03-13 18:25 | XMS_ITS | Encounter Summary ---
:1965 Author Organization [facility] [place] [address] Care Team Providers Name Role Phone Anna Mullen MD Primary Care Provider Encounter Details Date Type Department Care Team Description 03/05/2020 TH Visit Solid Organ Talia, Julio im munotherapy; (TeleHealth) Transplant at [facility] Eriberto Stoddard MD Encounter for long-term (current) use of other medications; [facility] 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 [facility] [address] [place] [id number] SURGERY [phone] [place], [place] [address] Social History Tobacco Use Types Packs/Day Years Used Date Never Smoker Smokeless Tobacco: Never Used Alcohol Use Standard Drinks/Week Comments No 0 (1 standard drink = 0.6 oz pure alcoho l) history of abuse, stopped 1996 Sex Assigned at Date Recorded Male 05/29/2021 11:28 PM EDT documented as of this encounter Progress Notes Eriberto Melgar MD - 03/05/2020 9:00 AM EDT Video conference Transplant Medicine Follow Up Reese Hsu [id number] 1965 Transplant ID: Date: 03/05/2020 Patient: Reese Hsu Transplant Date: 08/28/2013 Organ(s) Pancreas [place] organ diagnosis: Diabetes Mellitus - Type I (Pancreas) Days from Transplant: 6 1/2 years History of Present Illness: Mr. Reese Hsu is a 54 y.o. years old male who is s/p Pancreas transplant on 08/28/2013 (Pancreas). His post-op course was uneventful, I video conferenced with him due to COVID-19 pandemic, for aregular follow up visit and to review his recent admission Aug 06 for a CVA/TIA. Interim Hx: He was last seen 6 months ago. However on Aug 06 he developed acute loss of function of his left side. Upon evaluation here no distinctive lesion could be seen suggestive of a CVA but he states it mimicked an episode he had had as a youth. He is followed by Dr. Martinez. He states he has only a mild residual deficit with difficulty swallowing (associated 9th cranial nerve). He has a follow up with Dr. Martinez. This past year 2018, he was evaluated here at with nuclear stress test and found EF 61%, +coronary arterial calcifications. Vitamin D3 dosing was dropped to 2000 units Vit D2 daily. Been compliant with his immunosuppressive medications and fluid intake. Has chronic problems with his gastroparesis but voiced no new complaints.He reports increased muscle weakness with atrophy in hisright hand which initially started as knuckle pain in middle fingers. His sugars are well controlledand compliant with his HCM testing. IN December 2019 he developed an acute asthmatic attack and was given5 day prednisone burst. He also was placed on verapapmil by Dr. Mullen for slightly climbing BPs. Historically: 1)two pre malignant skin lesions on his scalp which are being removed in Dermatology 2)s/p hyponatremia due to poor salt intake; could becoming hypoaldosterone 3)hypocalcemia and hypophosphatemia due to poor Vit D status but with calcific coronaries, will be cautious re: over zealous Rx Routine Health Maintenance: Healthcare maintenance for a transplant recipient: Immunizations (no live virus or modified bacterial vaccines) Prevnar 13 once in a lifetime Pneumovax 23 every 5 years Tdap every 10 years Annual flu shot NO SHINGLES VACCINEs Annual PCP exam Annual YULISSA and PSA [...] for diabetics, every 5 for non diabetics [place] kidney ultrasound looking for renal cell CA, every 5 years post transplant Bone density assessment every 9-12 years post transplant Annual fasting lipid profile Annual PTH-Vit D3 assessment until normalized Annual spot urine for creatinine, protein, calcium, phosphate, magnesium and total volume ROS: Review of Systems - Denies fevers, chills, nausea, vomiting, diarrhea, abd pain, chest pain, sob, graft tenderness,. Allother review of systems were neither positive or negative, except noted above Active Ambulatory Problems Diagnosis Date Noted ??? [...] Ischemic stroke 08/30/2019 ??? Globus sensation 09/15/2019 Resolved Ambulatory Problems Diagnosis Date Noted ??? Edema 01/15/2012 Past Medical History: Diagnosis Date ??? ASCVD (arteriosclerotic cardiovascular disease) ??? Breathing problem recently ??? Chronic pain 11 years old ??? Circulatory disease recently ??? Diabetes 17 years old ??? Digestive problems 22 years old ??? Gastroparesis ??? Genital disease, male 5 years ago ??? Headache(784.0) since 12 years old ??? Heart disorder last three years ??? Hormone disorder awhile ago ??? HTN (hypertension) ??? Hypertensive disease 17 years old ??? Hypothyroid ??? IDDM (insulin dependent diabetes mellitus) ??? Musculoskeletal disease 11 years old ??? Nervous system disorder 1976 ??? Other ill-defined conditions(799.89) 3 years ago ??? Papillary fibroelastoma of heart ??? Severe headache Past Surgical History: Procedure Laterality Date ??? APPENDECTOMY ??? BRAIN SURGERY 1976 stroke paralyze left side neck down ??? CARPAL TUNNEL RELEASE ??? CREATED BY INTERFACE EGD-BIOPSY Procedure Date: 07/18/2009 ??? CREATED BY INTERFACE Entered not Verified Procedure Date: 10/24/2010 ??? PRO COLONOSCOPY, DIAGNOSTIC N/A 10/24/2014 COLONOSCOPY, DIAGNOSTIC performed by Anna Rapp MD at [facility] ENDOSCOPY ??? PRO TRANSPLANT ALLOGRAFT PANCREAS 08/28/2013 @PANCREATIC TRANSPLANT performed by Iraj Keller MD at [facility] MAIN OR ??? PRO TRANSPLANT, PREP DONOR PANCREAS 08/28/2013 @PREPARATION CADAVERIC PANCREAS, STANDARD performed by Iraj Keller MD at [facility] MAIN OR ??? PRO UNLISTED PROCEDURE, MUSCULOSKELETAL SYSTEM, GENERAL 10 years carpel tunnel ??? PRO UPPER GI ENDOSCOPY, BIOPSY 12/31/2011 UPPER GASTROINTESTINAL ENDOSCOPY,WITH BIOPSY SINGLE OR MULTIPLE performed by CLAYTON BHAKTA at [facility] ENDOSCOPY ??? PRO UPPER GI ENDOSCOPY, BIOPSY N/A 08/15/2015 EGD WITH BIOPSY performed by Clayton Bhakta MD at [facility] ENDOSCOPY ??? SHOULDER SURGERY ??? UPPER GI ENDOSCOPY, EXAM 12/31/2011 UPPER GI ENDOSCOPY performed by CLAYTON BHAKTA at [facility] ENDOSCOPY Current Outpatient Medications: ??? verapamil SR (Calan-SR) 120 mg Tablet Sustained Release, Take 120 mg by mouth daily., Disp: , Rfl: ??? gabapentin (Neurontin) 300 mg Capsule, Take 300 mg by mouth 3 times daily. Takes 1 caps in the morning, 2 caps in the afternoon and 2 caps at night., Disp: , Rfl: ??? Prograf 1 mg Capsule, TAKE TWO CAPSULES BY MOUTH in AM and 1 capsule in PM. Pancreas transplant 08/28/2013. ICD code Z94.83, Disp: 90 capsule, Rfl: 11 ??? fludrocortisone (Florinef) 0.1 mg Tablet, Take 1 tablet by mouth daily., Disp: 30 tablet, Rfl: 3 ??? mycophenolate (Cellcept) 250 mg Capsule, TAKE TWO CAPSULES BY MOUTH TWICE A DAY, Disp: 360 capsule, Rfl: 0 ??? clopidogrel (PLAVIX) 75 mg Tablet, Take [...] daily., Disp: 90 tablet, Rfl: 2 ??? traZODone (DESYREL) 50 mg Tablet, TAKE ONE TABLET BY MOUTH EVERY EVENING, Disp: 90 tablet, Rfl: 3 ??? lisinopril (PRINIVIL;ZESTRIL) 20 mg Tablet, Take 1.5 tablets by mouth 2 times daily., Disp: 270 tablet, Rfl: 3 ??? valACYclovir (VALTREX) 500 mg Tablet, TAKE [...] Nausea., Disp: 15 tablet, Rfl: 0 ??? acetaminophen (TYLENOL) 325 mg tablet, Take 2 tablets by mouth every 4 hours as needed (Pain, Fever. if oral temperature greater than 38.5 Centigrade)., Disp: 30 tablet, Rfl: ??? sildenafil (VIAGRA) 100 mg tablet, Take 1 tablet by mouth as needed for Erectile Dysfunction. supply Dx code :250.60, Disp: 60 tablet, Rfl: 6 Immunization History Administered Date(s) Administered ??? Influenza PF, Split 05/31/2014, 05/19/2016, 08/17/2019 ??? Influenza Vaccine W/preservative, Quadrivalent 06/11/2019 ??? Influenza Vaccine w/Preservative, Split 05/22/2012 ??? Influenza Vaccine, Whole 06/11/2009 ??? Pneumococcal Conjugate (13 Valent) 02/22/2016 ??? Pneumococcal Polyvalent 23 08/31/2003, 06/14/2014, 08/17/2019 ??? Tdap Vaccine 03/05/2011 Allergies Allergen Reactions ??? Esomeprazole Other reaction(s): Diarrhea ??? Nexium [Esomeprazole Magnesium] Diarrhea Any acid reflux medication causes severe diarrhea ??? Omeprazole Other reaction(s): Diarrhea ??? Prilosec [Omeprazole Magnesium] Diarrhea ??? Reglan [Metoclopramide Hcl] TD ??? Simvastatin By report: Weight 209 lb BP 131/82, W[place] 67; Gen - AAO x 3 in NAD Skin - No exanthem.,have a skin break on upperlip HEENT - Mucous membranes moist. No dependent edema. Results for REESE HSU ( ) as of 03/13/2020 08:35 Ref. Range 02/16/2020 08:01 02/16/2020 08:06 WBC Latest Ref Range: 4.0 - 9.5 x10(3)/mcL 10.4 (H) RBC Latest Ref Range: 4.58 - 5.54 x10(6)/mcL 4.44 (L) Hemoglobin Latest Ref Range: 13.7 - 16.5 gm/dL 13.7 Hematocrit Latest Ref Range: 40.5 - 48.5 % 41.7 MCV Latest Ref Range: 82.9 - 93.1 fL 93.9 (H) MCH Latest Ref Range: 27.5 - 32.1 pg 30.9 MCHC Latest Ref Range: 32.0 - 35.7 gm/dL 32.9 RDWSD Latest Ref Range: 36.0 - 45.0 fL 45.7 (H) RDWCV Latest Ref Range: 11.4 - 13.8 % 13.4 Platelets Latest Ref Range: 145 - 357 x10(3)/mcL 274 MPV Latest Ref Range: 7.6 - 12.[address] % Latest Ref Range: 0.7 - 2.6 % 1.[address] Abs Latest Ref Range: 0.030 - 0.120 x10(6)/mcL 0.080 Immature Retic% Latest Ref Range: 0.0 - 15.6 % 8.5 Reticulated Hgb Latest Ref Range: 31.3 - 40.2 pg 36.4 nRBC % Auto Latest Units: % 0.0 nRBC Abs Auto Latest Ref Range: 0.000 - 0.000 x10(3)/mcL 0.000 Neutr Abs (ANC) Latest Ref Range: 1.70 - 6.10 x10(3)/mcL 4.55 Neutrophils % Latest Units: % 43.6 Immature Gran % Latest Units: % 2.10 Lymphocytes % Latest Units: % 41.7 Monocytes % Latest Units: % 9.2 Eosinophils % Latest Units: % 2.3 Basophils % Latest Units: % 1.1 Kym Gran Abs Latest Ref Range: 0.00 - 0.04 x10(3)/mcL 0.22 (H) Lymphocytes Abs Latest Ref Range: 0.9 - 3.2 x10(3)/mcL 4.3 (H) Monocyte Abs Latest Ref Range: 0.3 - 0.9 x10(3)/mcL 1.0 (H) Eosinophils Abs Latest Ref Range: 0.0 - 0.4 x10(3)/mcL 0.2 Basophils Abs Latest Ref Range: 0.0 - 0.1 x10(3)/mcL 0.1 Sodium Latest Ref Range: 135 - 145 mmol/L 133 (L) Potassium Latest Ref Range: 3.5 - 5.0 mmol/L 4.2 Chloride Latest Ref Range: 98 - 107 mmol/L 95 (L) CO2 Latest Ref Range: 22 - 31 mmol/L 29 Anion Gap Latest Ref Range: 5 - 15 mmol/L 9 BUN Latest Ref Range: 10 - 20 mg/dL 19 Creatinine Latest Ref Range: 0.80 - 1.50 mg/dL 1.00 eGFR Latest Ref Range: >=60 mL/min/1.73 m?? 86 eGFR Latest Ref Range: >=60 mL/min/1.73 m?? 100 Calcium Latest Ref Range: 8.5 - 10.5 mg/dL 9.4 Magnesium Latest Ref Range: 0.69 - 1.07 mmol/L 0.82 Phosphorus Latest Ref Range: 2.5 - 4.5 mg/dL 3.6 Uric Acid Latest Ref Range: 3.5 - 8.5 mg/dL 6.7 Glucose Lvl Latest Ref Range: 65 - 199 mg/dL 100 Total Protein Latest Ref Range: 6.1 - 8.0 gm/dL 6.9 Albumin Latest Ref Range: 3.2 - 5.2 gm/dL 4.2 Total Bilirubin Latest Ref Range: 0.2 - 1.3 mg/dL 0.7 Alk Phos Latest Ref Range: 40 - 130 unit/L 128 AST Latest Ref Range: 0 - 39 unit/L 11 ALT Latest Ref Range: 0 - 55 unit/L 16 Amylase Latest Ref Range: 28 - 100 unit/L 47 Lipase Latest Ref Range: 0 - 60 unit/L 24 Chol, Total Latest Units: mg/dL 119 Lipid Interpretation Unknown See Note Tacrolimus Lvl Latest Units: ng/mL 5.7 Color UA Latest Ref Range: Yellow Yellow Appearance UA Latest Ref Range: Clear Clear Spec Creola UA Latest Ref Range: 1.006 - 1.030 1.010 pH UA Latest Ref Range: 5.0 - 8.0 6.0 Protein UA Latest Ref Range: Negative mg/dL [...] Range: Negative Negative Culture Reflexed Unknown No Impression/ Plan: Reese Hsu is s/p Pancreas transplant. He was transplanted on 08/28/2013 (Pancreas). Mr. Reese Hsu is maintaining good graft function. He remains hydrated. . I also informed Mr. Reese Hsu to keep up with all recommended health maintenance visits, routine lab testing and screenings.He c/o muscle atrophy with pain in his right hand during this visit. He is following up with Dr. Martinez re: recent CVA with residual swallowing dysfunction. Transplant Status : His blood sugars are well controlled with fasting levels wnl.Have chronic gastroparesis symptoms which are stable and with no escalation of symptoms.His amylase and lipase are stable indicating good graft function. Immunosuppression Currently on Prograf -2 mg/2mg and Cellcept -500 mg BID .Prograft levels are in therapeutic range. PO4/Mg Calcium,magnesium and phos levels are low suggests Vit D3 deficiency Dropped Vit D replacement..Continue with magnesium gluconate supplementation. Hypertension Lisinopril 20 mg bid; Hyponatremia Salt his food ; on Florinef Discussion with the patient and/or family concerned the following: ? Diagnostic results or recommended studies ? Prognosis; ? Risks and benefits of management; ? Instructions for management; ? Compliance with treatment; ? Risk factor reduction; ? Patient and family education. Total time: 25 of 30 minutes in direct face to face career guidance counselor. Follow-up: 6 months Labs quarterly. documented in this encounter Plan of Treatment Not on filedocumented as of this encounter Visit Diagnoses Diagnosis Prophylactic immunotherapy Need for prophylactic immunotherapy Encounter for long-term (current) use of other medications 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 documented in this encounter Care Teams Outpatient Admitting Clerk Relationship Specialty Start Date End Date Anna Mullen MD PCP - General 12/03/10 [address] [place] [address] documented as of this encounter
--- OUTSIDE RECORDS SUMMARY | 2022-03-13 18:25 | XMS_ITS | Encounter Summary ---
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 HEMOGRAM Routine 05/21/2020 1:49 PM Pancreas replaced Resu lts for this EDT by transplant procedure are in SOB (shortness of the result s breath) section. DIFFERENTIAL, Routine 05/21/2020 1:49 PM Pancreas replaced Res ults for this AUTOMATED EDT by transplant procedure are in SOB (shortness of the result s breath) section. HC FK-506 (TACROLIMUS) Routine 05/21/2020 1:49 PM Pancreas rep laced Results for this EDT by transplant procedure are in SOB (shortness of the result s breath) section. HC RETIC,AUTO INCLUDES Routine 05/21/2020 1:49 PM Pancreas rep laced Results for this RETHE & IRF EDT by transplant procedure are in SOB (shortness of the result s breath) section. HC CBC,PLT & AUTO DIFF Routine 05/21/2020 1:49 PM Pancreas rep laced EDT by transplant SOB (shortness of breath) HC URIC ACID, SERUM Routine 05/21/2020 1:49 PM Pancreas replac ed Results for this EDT by transplant procedure are in SOB (shortness of the result s breath) section. HC PHOSPHORUS, SERUM Routine 05/21/2020 1:49 PM Pancreas repla [place] Results for this EDT by transplant procedure are in SOB (shortness of the result s breath) section. HC MAGNESIUM, SERUM Routine 05/21/2020 1:49 PM Pancreas replac ed Results for this EDT by transplant procedure are in SOB (shortness of the result s breath) section. HC LIPASE Routine 05/21/2020 1:49 PM Pancreas replaced Resu lts for this EDT by transplant procedure are in SOB (shortness of the result s breath) section. HC HEMOGLOBIN A1C Routine 05/21/2020 1:49 PM Pancreas replaced Results for this EDT by transplant procedure are in Encounter for the results long-term (current) section. use of other medications HC CHOLESTEROL Routine 05/21/2020 1:49 PM Pancreas replaced Re sults for this EDT by transplant procedure are in SOB (shortness of the result s breath) section. HC AMYLASE Routine 05/21/2020 1:49 PM Pancreas replaced Resu lts for this EDT by transplant procedure are in SOB (shortness of the result s breath) section. COMPREHENSIVE Routine 05/21/2020 1:49 PM Pancreas replaced Res ults for this METABOLIC PANEL EDT by transplant procedure are in (NON-FASTING) SOB (shortness of the resul ts breath) section. documented in this encounter Results Urinalysis with reflex Culture (05/21/2020 2:09 PM EDT) [employer] Method Time Signature Glucose UA Negative Negative [facility] mg/dL [facility] Protein UA Negative Negative [facility] mg/dL [facility] Bilirubin UA Negative Negative [facility] mg/dL [facility] Comment: Clinical correlation required for positi ve Urine Bilirubin results as false positive may occur with some drugs and d rug related products. If a false positive is suspected a serum total bili sinha should be considered if clinically indicated. Urobilinogen UA Normal Normal mg/dL [facility] pH UA 7.0 5.0 - 8.0 [facility] Blood UA Negative Negative mg/dL [facility] Ketones UA Negative Negative mg/dL [facility] Nitrite UA Negative Negative [facility] Leukocytes UA Negative Negative [facility] LABORATORY Appearance UA Clear Clear [facility] Spec [place] UA 1.007 1.006 - 1.030 [facility] Color UA Yellow Yellow [facility] Culture Reflexed No [facility] Specimen (Source) Anatomical Collection Method Collection Time Re ceived Time Location / / Volume Laterality Urine specimen 05/21/2020 2:09 05/21/2020 2:14 obtained by clean PM EDT PM EDT catch procedure (specimen) Resulting Agency Comment Spec In Lab Eriberto Melgar MD URINE ORDERABLES Performing Organization Address City/State/[place] [address] Differential, Automated (05/21/2020 1:49 PM EDT) P athologist Signature Neutrophils % 36.4 % [facility] Neutr Abs (ANC) 2.21 1.70 - [facility] 6.10 [facility] x10(3)/[facility] LABORATORY Lymphocytes % 53.1 % [facility] Lymphocytes Abs 3.2 0.9 - 3.2 [facility] x10(3)/[facility] LABORATORY Monocytes % 7.2 % [facility] Monocyte Abs 0.4 0.3 - 0.9 [facility] x10(3)/[facility] LABORATORY Eosinophils % 2.5 % [facility] Eosinophils Abs 0.2 0.0 - 0.4 [facility] x10(3)/[facility] LABORATORY Basophils % 0.5 % [facility] Basophils Abs 0.0 0.0 - 0.1 [facility] x10(3)/[facility] LABORATORY Immature Gran % 0.30 % [facility] Comment: Immature granulocytes(IG's)percentage an d absolute count will include metamyelocytes, myelocytes, and promyelo cytes. Blood smears from CBCs yielding IG's will be scanned manually for concor dance. If this scan disagrees with the automated IG or if promyelocytes are not ed, a manual differential will be performed. Kym Gran Abs 0.02 0.00 - 0.04 x10(3)/[facility] MAR Y [facility] Specimen Anatomical Collection Method Collection Time Receive d Time (Source) Location / / Volume Laterality Blood specimen 05/21/2020 1:49 PM 020 2:04 (specimen) EDT PM EDT Resulting Agency Comment Spec In Lab Eriberto Melgar MD HEMATOLOGY ORDERABLES Performing Organization Address City/State/[place] [address] (ABNORMAL) Hemogram (05/21/2020 1:49 PM EDT) Analysis Performed At Patho logist Time Signature WBC 6.1 4.0 - 9.5 [facility] x10(3)/[facility] LABORATORY RBC 4.40 (L) 4.58 - [facility] 5.54 [facility] x10(6)/[facility] LABORATORY Hemoglobin 13.5 (L) 13.7 - [facility] gm/dL [facility] Hematocrit 39.5 (L) 40.5 - [facility] 48.5 % [facility] MCV 89.8 82.9 - [facility] 93.1 fL [facility] MCH 30.7 27.5 - [facility] 32.1 pg [facility] MCHC 34.2 32.0 - [facility] 35.7 gm/dL [facility] Platelets 221 145 - 357 [facility] x10(3)/[facility] LABORATORY RDWSD 40.1 36.0 - [facility] [place] 45.0 [facility] LABORATORY RDWCV 12.2 11.4 - [facility] 13.8 % [facility] MPV 10.1 7.6 - 12.9 [facility] LAB[facility] nRBC % Auto 0.0 % [facility] nRBC Abs Auto 0.000 0.000 - [facility] 0.000 [facility] x10(3)/[facility] LABORATORY Specimen Anatomical Collection Method Collection Time Receive d Time (Source) Location / / Volume Laterality Blood specimen 05/21/2020 1:49 PM 020 2:04 (specimen) EDT PM EDT Resulting Agency Comment Spec In Lab Eriberto Melgar MD HEMATOLOGY ORDERABLES Performing Organization Address City/State/[place] [address] Hemoglobin A1c (05/21/2020 1:49 PM EDT) athologist Signature Hemoglobin A1C 5.0 4.3 - 5.6 [facility] [...] 36: Suppl. 1, S67-94 Est Avg Gluc 97 mg/dL [facility] Comment: eAG equivalents for HbA1c percentages: HbA1c(%) ?eAG(mg/dL) 6.0 ?126 6.5 ?140 7.0 ?154 7.5 ?169 8.0 ?183 8.5 ?197 9.0 ?212 9.5 ?226 10.0 ? 240 Limitations: The eAG calculation has not been validated on women, individuals below 18 years old and above 70 years old, and individuals with hemoglobinopathies. Additional resources are available on [facility] ADA website. Edinson GRISSOM, Nathaniel J, Ari R, et al. ??Tr anslating the A1C assay into estimated average glucose values. ??Diabetes Care 2008:31(8):3327-1054. Specimen Anatomical Collection Method Collection Time Receive d Time (Source) Location / / Volume Laterality Blood specimen 05/21/2020 1:49 PM 020 2:04 (specimen) EDT PM EDT Resulting Agency Comment Spec In Lab Eriberto Melgar MD CHEMISTRY ORDERABLES Performing Organization Address City/State/ZIP Code Phon e Number [place] [phone] Tacrolimus level (05/21/2020 1:49 PM EDT) P athologist Signature Tacrolimus Lvl 10.3 ng/mL [facility] Comment: Trough therapeutic: ??5-15 ng/mL Performed by ultra-performance liquid ch romatography tandem mass spectrometry (UPLCMS/MS). This test was developed and its performa nce characteristics determined by [facility]. It has not been cleared or approved by the FDA. The laboratory is regulated under CLIA a s qualified to perform high-complexity testing. This test is used for clinical purposes. It should not be regarded as investigational or for research. Specimen Anatomical Collection Method Collection Time Receive d Time (Source) Location / / Volume Laterality Blood specimen 05/21/2020 1:49 PM 020 4:06 (specimen) EDT PM EDT Resulting Agency Comment Spec In Lab Eriberto Melgar MD CHEMISTRY ORDERABLES Performing Organization Address City/State/[place] [address] Comprehensive metabolic panel (non-fasting) (05/21/2020 1:49 PM EDT) P athologist Signature Glucose Lvl 93 65 - 199 [facility] mg/dL [facility] Comment: Diabetes: >=200 mg/dL plus symp toms BUN 16 10 - 20 mg/dL [facility] Creatinine 1.00 0.80 - 1.50 mg/dL [facility] Sodium 137 135 - 145 mmol/L [facility] Potassium 4.2 3.5 - 5.0 mmol/L [facility] Comment: Please note: ??Patients with WBC >100,00 0 may have falsely elevated Potassium levels. ??For accurate Potassium quantif ication in these patients send serum separator tube (gold top) for subsequent determinations. ??Contact the Clinical Chemistry Laboratory if there are any qu estions. Chloride 101 98 - 107 mmol/L [facility] CO2 28 22 - 31 mmol/L [facility] Anion Gap 8 5 - 15 mmol/L [facility] Calcium 9.3 8.5 - 10.5 mg/dL [facility] Total Protein 7.0 6.1 - 8.0 gm/dL [facility] Albumin 4.4 3.2 - 5.2 gm/dL [facility] AST 23 0 - 39 unit/L [facility] ALT 21 0 - 55 unit/L [facility] Alk Phos 112 40 - 130 unit/L [facility] Total Bilirubin 0.7 0.2 - 1.3 mg/dL [facility] Estimated GFR 86 >=60 mL/min/1.73 m?? [facility] Comment: The eGFR was calculated using the CKD-EP I equation. As with all creatinine based estimates of kidney function, eGFR values calculated with the CKD-EPI equation are not accurate in patients wi th acute kidney failure, extremes of body mass or the acutely ill. http://[place]/[facility]MAN[facility]f eGFR 100 >=60 mL/min/1.73 m?? [facility] Comment: The eGFR was calculated using the CKD-EP I equation. As with all creatinine based estimates of kidney function, eGFR values calculated with the CKD-EPI equation are not accurate in patients wi th acute kidney failure, extremes of body mass or the acutely ill. http://[place]/[facility] Specimen Anatomical Collection Method Collection Time Receive d Time (Source) Location / / Volume Laterality Blood specimen 05/21/2020 1:49 PM 020 2:04 (specimen) EDT PM EDT Resulting Agency Comment Spec In Lab Eriberto Melgar MD CHEMISTRY ORDERABLES Performing Organization Address City/[facility]/ZIP Code Phon e Number [address] Lipase (05/21/2020 1:49 PM EDT) P athologist Signature Lipase 40 0 - 60 [facility] Specimen Anatomical Collection Method Collection Time Receive d Time (Source) Location / / Volume Laterality Blood specimen 05/21/2020 1:49 PM 020 2:04 (specimen) EDT PM EDT Resulting Agency Comment Spec In Lab Eriberto Melgar MD CHEMISTRY ORDERABLES Performing Organization Address City/State/ZIP Code Phon e Number [address] Amylase (05/21/2020 1:49 PM EDT) P athologist Signature Amylase 70 28 - 100 [facility] LABORATORY Specimen Anatomical Collection Method Collection Time Receive d Time (Source) Location / / Volume Laterality Blood specimen 05/21/2020 1:49 PM 020 2:04 (specimen) EDT PM EDT Resulting Agency Comment Spec In Lab Eriberto Melgar MD CHEMISTRY ORDERABLES Performing Organization Address City/[facility]/[place] [address] [facility] [address] Uric acid (05/21/2020 1:49 PM EDT) athologist Signature Uric Acid 6.3 3.5 - 8.5 [facility] mg/dL [facility] Specimen Anatomical Collection Method Collection Time Receive d Time (Source) Location / / Volume Laterality Blood specimen 05/21/2020 1:49 PM 020 2:04 (specimen) EDT PM EDT Resulting Agency Comment Spec In Lab Eriberto Melgar MD CHEMISTRY ORDERABLES Performing Organization Address City/State/[place] [address] [facility] [address] Cholesterol, total (05/21/2020 1:49 PM EDT) athologist Signature Chol, Total 121 mg/dL [facility] Comment: Lower Risk: <200 mg/dL Average Risk: 200-239 mg/dL Higher Risk: >pl=463 mg/dL Lipid Interpretation See Note [facility] Comment: Lipid management should be guided by a p atient? s ASCVD risk, goals and preferences. ACC/AHA Guidelines recommend high intens ity statin if clinical ASCVD or LDL greater than or equal to 190 mg/dL. http://[employer]ing[employer].com/WER-TUU-Ldujjcgkz Adults aged 40-75 with LDL 70-189 mg/dL should have their 10 year ASCVD risk estimated with the ACC/AHA ASCVD risk es timator http://tools.acc.org/ZSLHH-Ycfb-Azxkwyng r/ Statin should be discussed if risk [...] Location / / Volume Laterality Blood specimen 05/21/2020 1:49 PM 020 2:04 (specimen) EDT PM EDT Resulting Agency Comment Spec In Lab Eriberto Melgar MD CHEMISTRY ORDERABLES Performing Organization Address City/[facility]/ZIP Code Phon e Number [address] Phosphorus (05/21/2020 1:49 PM EDT) P athologist Signature Phosphorus 3.4 2.5 - 4.5 [facility] mg/dL [facility] Specimen Anatomical Collection Method Collection Time Receive d Time (Source) Location / / Volume Laterality Blood specimen 05/21/2020 1:49 PM 020 2:04 (specimen) EDT PM EDT Resulting Agency Comment Spec In Lab Eriberto Melgar MD CHEMISTRY ORDERABLES Performing Organization Address City/[facility]/ZIP Code Phon e Number [address] Magnesium (05/21/2020 1:49 PM EDT) P athologist Signature Magnesium 0.70 0.69 - 1.07 [facility] mmol/L [facility] Specimen Anatomical Collection Method Collection Time Receive d Time (Source) Location / / Volume Laterality Blood specimen 05/21/2020 1:49 PM 020 2:04 (specimen) EDT PM EDT Resulting Agency Comment Spec In Lab Eriberto Melgar MD CHEMISTRY ORDERABLES Performing Organization Address City/[facility]/ZIP Code Phon e Number [address] Reticulocyte Count (05/21/2020 1:49 PM EDT) P athologist Signature Retic Ct % 1.4 0.7 - 2.6 [facility]OR[facility]ORY Retic Ct Abs 0.060 0.030 - [facility] 0.120 [facility] x10(6)/[facility] LABORATORY Immature Retic% 5.0 0.0 - [address] 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
--- OUTSIDE RECORDS SUMMARY | 2022-03-13 18:25 | XMS_ITS | Encounter Summary ---
:1965 Author Organization [facility] Address [address] [place] [address] Care Team Providers Name Role Phone Anna Mullen MD Primary Care Provider Encounter Details Date Type Department Care Team Description 05/24/2020 Hospital Encounter XRay at [facility] Benjy Yang, Acute low back pain, [address] [place] unspecified back [place], [place] [facility] pain laterality , [phone] CENTER unspecified whether [phone] [place] [address] Social History Tobacco Use Types Packs/Day Years [...] Sig Dispensed Refills Start Date End Date acetaminophen (Tylenol) Take 1,000 mg by 0 [...] PM. Pancreas transplant 08/28/2013. ICD code Z94.83 fludrocortisone Take 1 tablet by 30 tablet 3 02/09/2020 (Florinef) 0.1 mg Tablet mouth daily. mycophenolate (Cellcept) TAKE TWO CAPSULES 360 capsule 0 03/202006/21/2020 250 mg Capsule BY MOUTH TWICE A DAY lisinopril Take 1.5 tablets by 270 tablet 3 03/02/201906/13 (PRINIVIL;ZESTRIL) 20 mg mouth 2 times TabletIndications: daily. Aftercare following organ transplant documented as of this encounter Plan of Treatment Not on filedocumented as of this encounter Procedures Procedure Name Priority Date/Time Associated Diagnosis Comme nts XR LUMBAR SPINE 2 Routine 05/24/2020 8:30 AM Acute low back pa in, Results for this OR 3 VIEWS EDT unspecified back procedure a re in pain laterality, the results unspecified whether section. sciatica present documented in this encounter Results XR Lumbar Spine 2 Or 3 Views (Generic) (05/24/2020 8:30 AM EDT) Anatomical Region Laterality Modality L-spine N/A Digital Radiography Specimen (Source) Anatomical Location Collection Method / Collectio n Time Received Time / Laterality Volume Impressions 05/24/2020 11:36 AM EDT 1. ??Dextroconvex scoliosis of the lumbar spine with degenerative disease more severely on the concave side of the curv ature. 2. ??Retrolisthesis of L3 on L4 and L5 o n S1. No dynamic instability. 3. ??Multilevel disc height loss with en dplate proliferation and facet arthropathy is prominent from L4 to S1. I have personally reviewed the image(s) and the resident's interpretation and agree with the findings, Zoe Graham MD at 05/24/2020 11:36 AM Thank you for letting us participate in the care of this patient. For questions regarding this report, please contact e number below. ? Electronically signed by: Bruce [facility]Ad[facility] ([phone]), at 05/24/2020 11:36 AM Narrative 05/24/2020 11:36 AM EDT EXAMINATION: XR LUMBAR SPINE 2 OR 3 VIEWS (GENERIC) CLINICAL HISTORY: Upright AP & lateral f ema/ext (3 views) to evaluate lumbar stenosis (as entered by ordering provide r in the order requisition) TECHNIQUE: AP, flexion, and lateral extension radio graphs of the lumbar spine COMPARISON: Spine radiographs dated 11/29/2013, spine MR dated 01/06/2014 FINDINGS: There are 5 nonrib-bearing lumbar-type v ertebral bodies, taking the last rib-bearing vertebral body to be T12. Re demonstrated dextroconvex scoliosis of the lumbar spine. Osteophytes are seen m ore severely on the concave side of the curvature. 5 mm retrolisthesis of L3 on L4 is unchanged in flexion and extension. 6 mm retrolisthesis of L5 on S1 in extension is essentially unchanged in flexion where it measures 7 mm.. Endplate irregularity and mild loss of v ertebral body height at multiple levels of the mid to lower lumbar spine appear unchanged from 2013. Multi-level disc height loss, most prominent at L4-L5 and L5-S1. Facet arthropathy, most severe from L4 to S1. Procedure Note Zoe Graham MD - 05/24/2020Formattin g of this note might be different from the original. EXAMINATION: XR LUMBAR SPINE 2 OR 3 VIEW S (GENERIC) CLINICAL HISTORY: Upright AP & lateral f ema/ext (3 views) to evaluate lumbar stenosis (as entered by ordering provide r in the order requisition) TECHNIQUE: AP, flexion, and lateral extension radio graphs of the lumbar spine COMPARISON: Spine radiographs dated 11/29/2013, spine MR dated 01/06/2014 FINDINGS: There are 5 nonrib-bearing lumbar-type v ertebral bodies, taking the last rib-bearing vertebral body to be T12. Re demonstrated dextroconvex scoliosis of the lumbar spine. Osteophytes are seen m ore severely on the concave side of the curvature. 5 mm retrolisthesis of L3 on L4 is unchanged in flexion and extension. 6 mm retrolisthesis of L5 on S1 in extension is essentially unchanged in flexion where it measures 7 mm.. Endplate irregularity and mild loss of v ertebral body height at multiple levels of the mid to lower lumbar spine appear unchanged from 2014. Multi-level disc height loss, most prominent at L4-L5 and L5-S1. Facet arthropathy, most severe from L4 to S1. IMPRESSION 1. Dextroconvex scoliosis of the lumbar spine with degenerative disease more severely on the concave side of the curv ature. 2. Retrolisthesis of L3 on L4 and L5 on S1. No dynamic instability. 3. Multilevel disc height loss with endp late proliferation and facet arthropathy is prominent from L4 to S1. I have personally reviewed the image(s) and the resident's interpretation and agree with the findings, Zoe Graham MD at 05/24/2020 11:36 AM Thank you for letting us participate in the care of this patient. For questions regarding this report, please contact e number below. Benjy Yang MD IMG DX ORDERABLES documented in this encounter Visit Diagnoses Diagnosis Acute low back pain, unspecified back pa in laterality, unspecified whether sciatica present documented in this encounter Care Teams Acls Specialist Relationship Specialty Start Date End Date Anna Mullen MD PCP - General 12/03/10 [address] [place] [address] documented as of this encounter
--- OUTSIDE RECORDS SUMMARY | 2022-03-13 18:25 | XMS_ITS | Encounter Summary ---
:1965 Author Organization [facility] [place] [address] Care Team Providers Name Role Phone Anna Mullen MD Primary Care Provider Reason for Visit Reason Onset Date Comments Medication Refill 06/01/2020 Encounter Details Date Type Department Care Team Description 06/01/2020 Refill Solid Organ Transplant at Eriberto Emery MD [facility] [place] [address] [place] [address] [phone] (Wo rk) Social History Tobacco Use Types [...] on filedocumented in this encounter Care Teams Distribution Agent Relationship Specialty Start Date End Date Anna Mullen MD PCP - General 12/03/10 [address] [place], [place] [address] documented as of this encounter
--- OUTSIDE RECORDS SUMMARY | 2022-03-13 18:25 | XMS_ITS | Encounter Summary ---
:1965 Author Organization [facility] [place] [address] Care Team Providers Name Role Phone Anna Mullen MD Primary Care Provider Reason for Visit Reason Onset Date Comments Medication Refill 05/31/2020 Encounter Details Date Type Department Care Team Description 05/31/2020 Refill Solid Organ Transplant at Eriberto Emery MD [facility] [place] [address] [place] [address] [phone] (Wo rk) Social History Tobacco Use Types [...] on filedocumented in this encounter Care Teams Lace Paper Machine Operator Relationship Specialty Start Date End Date Anna Mullen MD PCP - General 12/03/10 [address] [place], [place] [address] documented as of this encounter
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
--- OUTSIDE RECORDS SUMMARY | 2022-03-13 18:25 | XMS_ITS | Encounter Summary ---
:1965 Author Organization [facility] [place] [address] Care Team Providers Name Role Phone Anna Mullen MD Primary Care Provider Reason for Visit Reason Comments Medication Refill Encounter Details Date Type Department Care Team Description 02/21/2020 Refill Solid [facility] at [facility] [place] [address] [place] [address] [phone] (Wo rk) Social History Tobacco Use Types [...] on filedocumented in this encounter Care Teams Material Yard Clerk Relationship Specialty Start Date End Date Anna Mullen MD PCP - General 12/03/10 [address] [place] [address] documented as of this encounter
--- OUTSIDE RECORDS SUMMARY | 2022-03-13 18:25 | XMS_ITS | Encounter Summary ---
:1965 Author Organization [facility] [place] [address] Care Team Providers Name Role Phone Anna Mullen MD Primary Care Provider Encounter Details Date Type Department Care Team Description 02/07/2020 [facility] Ruled ou t possible [facility] exposure to novel Hospital coronavirus (COVID-19) [place] [address] Social History Tobacco Use Types Packs/Day [...] Priority Date/Time Associated Diagnosis Comme nts HC SARS-COV-2 STAT 02/07/2020 1:55 PM Ruled out possible Re sults for this (COVID-19) EDT exposure to novel procedure are in (MOLECULAR coronavirus the results PATHOLOGY) (COVID-19) section. documented in this encounter Results COVID-19 PCR (02/07/2020 1:55 PM EDT) [facility] Method Time Signature SARS-CoV-2 Not Detected Not Detected [facility] Comment: This result should be interpreted in com bination with the clinical observations, patient history and epidem iological information. For testing of asymptomatic individuals, assay performa nce characteristics and clinical utility have not been evaluated. Testing for SARS-CoV-2 (Severe acute respiratory syndrome coronavirus 2, form erly known as 2019 novel coronavirus or 2019-nCoV) to aid in the diagnosis of CO VID-19 is performed using the [employer] Real[employer] SARS-CoV-2 as authorized by the FDA Emergency Use Authorization (EUA). This EUA assay is intended for In-vitro Diagnostic (IVD) use with respiratory specimens such as nasopharyngeal swabs c ollected from individuals during the acute phase of infection. This assay is performed based on the instructions for use provided by the [employer] and additional guidance provided by CDC and FDA. Testing is performed in the [employer] [facility] within the Department of Path ology and Laboratory Medicine at [facility], cert ified under the Clinical Laboratory Improvement Amendments of 1988 (CLIA), 4 2 U.S.C. section 263a, to perform high complexity tests. Assay performance has been verified according to clinical laboratory regulatory requirements. Test results are provided above. A resul t of Not Detected indicates that the viral RNA target is not present but does not preclude SARS-CoV-2 infection. False negative results may occur if a sp ecimen is improperly collected, transported or handled; if amplification inhibitors are present; or if inadequate numbers of viral particles ar e present in the specimen. A result of Detected suggests a current or recent infection and the patient is presumed to be infected. As required or requested by public health authorities, positive specimens may be sent for additional charles ting. Positive and negative predictive values for this test are highly dependen t on disease prevalence. A result of Invalid indicates that neither the vir al RNA targets nor the internal control target was detected. An invalid result s uggests the presence of inhibitors. Recollection is recommended in the case of an invalid result. CDC COVID-19 criteria for testing on hum an specimens and clinical management guidance information are available at th e CDC Coronavirus Disease 2019 (COVID-19) webpage under Information fo r Healthcare Professionals (https://www.cdc.gov/coronavirus/2019-nc ov/hcp/index.html) Additional information about this and ot her EUA tests can be found in provider and patient fact sheets at the following FDA website: https://www.fda.gov/medical-devices/uaqrriusq-ohodmzcpdr-ckoflfl-devices/emergen dl-rkp-wzzzvmwjcxdgug#wpxku05fqf SARS-Cov-2 RNA Source MEDICAL SURGERY NURSE Swab [facility] Specimen (Source) Anatomical Collection Method Collection Time Re ceived Time Location / / Volume Laterality Nasopharyngeal swab 02/07/2020 1:55 02/06 (specimen) PM EDT 3:28 PM EDT Comment: Symptoms->Fever / Respiratory S ymptoms Resulting Agency Comment Spec In Lab Eriberto Melgar MD MICROBIOLOGY - GENERAL ORDER ERICA Performing Organization Address City/State/[place] [address] documented in this encounter Visit Diagnoses Diagnosis Ruled out possible exposure to novel cor onavirus (COVID-19) documented in this encounter Care Teams Homoeopath Relationship Specialty Start Date End Date Anna Mullen MD PCP - General 12/03/10 [address] [place] [address] documented as of this encounter
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
--- OUTSIDE RECORDS SUMMARY | 2022-03-13 18:25 | XMS_ITS | Encounter Summary ---
:1965 Author Organization [facility] [place] [address] Care Team Providers Name Role Phone Anna Mullen MD Primary Care Provider Encounter Details Date Type Department Care Team Description 01/31/2020 Abstract Solid Organ Transplant at [facility] [place] [address] [place] [address] [phone] (Wo rk) Social History Tobacco Use Types [...] filedocumented in this encounter Care Teams Director Recreation Relationship Specialty Start Date End Date Anna Mullen MD PCP - General 12/03/10 [address] [place] [address] documented as of this encounter
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
--- OUTSIDE RECORDS SUMMARY | 2022-03-13 18:25 | XMS_ITS | Encounter Summary ---
:1965 Author Organization [facility] [place] [address] Care Team Providers Name Role Phone Anna [...] Expiration Date Visits Requ ested Visits Authorized [id number] 1 1 Encounter Details Date Type Department Care Team Description 07/09/2020 Ancillary Procedure Pain Management Bruce Tran usa, MD Pain [facility] [place] [address] [place] [address] [phone] Social History Tobacco Use Types Packs/Day Years [...] Associated Diagnosis Comme nts FILM LIBRARY Routine 07/11/2020 4:51 PM Pain Results f or this STORAGE ONLY PAIN EST procedure are in [facility] the results section. documented in this encounter Results Film Library- Storage Only pain Clinic [facility] (07/11/2020 4:51 PM EST) Specimen (Source) Anatomical Location Collection Method / Collectio n Time Received Time / Laterality Volume Narrative JANE - 07/11/2020 4:51 PM EST See PACS for result report. Oracio Alejandra MD IMG FILM LIBRARY ORDERABLES Performing Organization Address City/State/ZIP Code Phon e Number [place], [place] documented in this encounter Visit Diagnoses Diagnosis Pain Generalized pain documented in this encounter Care Teams Pot Runner Relationship Specialty Start Date End Date Anna Mullen MD PCP - General 12/03/10 [address] [place] [address] documented as of this encounter
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
--- OUTSIDE RECORDS SUMMARY | 2022-03-13 18:25 | XMS_ITS | Encounter Summary ---
:1965 Author Organization [facility] [place] [address] Care Team Providers Name Role Phone Anna Mullen MD Primary Care Provider Reason for Visit Reason Comments Medication Refill Encounter Details Date Type Department Care Team Description 02/06/2020 Refill Solid Organ Transplant at [facility] [place] [address] [place] [address] [phone] (Wo rk) Social History Tobacco Use Types [...] on filedocumented in this encounter Care Teams Assembler Seat Relationship Specialty Start Date End Date Anna Mullen MD PCP - General 12/03/10 [address] [place] [address] documented as of this encounter
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
--- OUTSIDE RECORDS SUMMARY | 2022-03-13 18:25 | XMS_ITS | Encounter Summary ---
:1965 Author Organization [facility] [place] [address] Care Team Providers Name Role Phone Anna Mullen MD Primary Care Provider Encounter Details Date Type Department Care Team Description 12/23/2019 Abstract Solid Organ Transplant at [facility] [place] [address] [place] [address] [phone] (Wo rk) Social History Tobacco Use Types [...] on filedocumented in this encounter Care Teams Chronometer Assembler Relationship Specialty Start Date End Date Anna Mullen MD PCP - General 12/03/10 [address] [place] [address] documented as of this encounter
--- OUTSIDE RECORDS SUMMARY | 2022-03-13 18:25 | XMS_ITS | Encounter Summary ---
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 HC COVID-19 IGG Routine 02/09/2020 1:17 PM Pancreas replaced R esults for this EDT by transplant procedure are in SOB (shortness of the result s breath) section. HEMOGRAM Routine 02/09/2020 1:17 PM Pancreas replaced Resu lts for this EDT by transplant procedure are in SOB (shortness of the result s breath) section. DIFFERENTIAL, Routine 02/09/2020 1:17 PM Pancreas replaced Res ults for this AUTOMATED EDT by transplant procedure are in SOB (shortness of the result s breath) section. HC FK-506 (TACROLIMUS) Routine 02/09/2020 1:17 PM Pancreas rep laced Results for this EDT by transplant procedure are in SOB (shortness of the result s breath) section. HC RETIC,AUTO INCLUDES Routine 02/09/2020 1:17 PM Pancreas rep laced Results for this RETHE & IRF EDT by transplant procedure are in SOB (shortness of the result s breath) section. HC CBC,PLT & AUTO DIFF Routine 02/09/2020 1:17 PM Pancreas rep laced EDT by transplant SOB (shortness of breath) HC URIC ACID, SERUM Routine 02/09/2020 1:17 PM Pancreas replac ed Results for this EDT by transplant procedure are in SOB (shortness of the result s breath) section. HC PHOSPHORUS, SERUM Routine 02/09/2020 1:17 PM Pancreas repla [place] Results for this EDT by transplant procedure are in SOB (shortness of the result s breath) section. HC MAGNESIUM, SERUM Routine 02/09/2020 1:17 PM Pancreas replac ed Results for this EDT by transplant procedure are in SOB (shortness of the result s breath) section. HC LIPASE Routine 02/09/2020 1:17 PM Pancreas replaced Resu lts for this EDT by transplant procedure are in SOB (shortness of the result s breath) section. HC CHOLESTEROL Routine 02/09/2020 1:17 PM Pancreas replaced Re sults for this EDT by transplant procedure are in SOB (shortness of the result s breath) section. HC AMYLASE Routine 02/09/2020 1:17 PM Pancreas replaced Resu lts for this EDT by transplant procedure are in SOB (shortness of the result s breath) section. COMPREHENSIVE Routine 02/09/2020 1:17 PM Pancreas replaced Res ults for this METABOLIC PANEL EDT by transplant procedure are in (NON-FASTING) SOB (shortness of the resul ts breath) section. documented in this encounter Results Urinalysis with reflex Culture (02/09/2020 1:21 PM EDT) [facility] [place] Method Time Signature Glucose UA Negative Negative [facility] mg/dL [facility] Protein UA Negative Negative [facility] mg/dL [facility] Bilirubin UA Negative Negative [facility] mg/dL [facility] Comment: Clinical correlation required for positi ve Urine Bilirubin results as false positive may occur with some drugs and d rug related products. If a false positive is suspected a serum total bili sinha should be considered if clinically indicated. Urobilinogen UA Normal Normal mg/dL [facility] pH UA 6.5 5.0 - 8.0 [facility] Blood UA Negative Negative mg/dL [facility] Ketones UA Negative Negative mg/dL [facility] Nitrite UA Negative Negative [facility] Leukocytes UA Negative Negative [facility] LABORATORY Appearance UA Clear Clear [facility] Spec [place] UA 1.009 1.006 - 1.030 [facility] Color UA Yellow Yellow [facility] Culture Reflexed No [facility] Specimen (Source) Anatomical Collection Method Collection Time Re ceived Time Location / / Volume Laterality Urine specimen 02/09/2020 1:21 02/09/2020 1:28 obtained by clean PM EDT PM EDT catch procedure (specimen) Resulting Agency Comment Spec In Lab Eriberto Melgar MD URINE ORDERABLES Performing Organization Address City/State/[place] [address] (ABNORMAL) Differential, Automated (02/09/2020 1:17 PM EDT) [facility] Method Time Signature Neutrophils % 48.8 % [facility] Neutr Abs (ANC) 5.16 1.70 - [facility] 6.10 [facility] x10(3)/[facility] LABORATORY Lymphocytes % 40.0 % [facility] Lymphocytes Abs 4.2 (H) 0.9 - 3.2 [facility] x10(3)/[facility] LABORATORY Monocytes % 8.2 % [facility] Monocyte Abs 0.9 0.3 - 0.9 [facility] x10(3)/[facility] LABORATORY Eosinophils % 1.9 % [facility] Eosinophils Abs 0.2 0.0 - 0.4 [facility] x10(3)/[facility] LABORATORY Basophils % 0.6 % [facility] Basophils Abs 0.1 0.0 - 0.1 [facility] x10(3)/[facility] LABORATORY Immature Gran % 0.50 % [facility] Comment: Immature granulocytes(IG's)percentage an d absolute count will include metamyelocytes, myelocytes, and promyelo cytes. Blood smears from CBCs yielding IG's will be scanned manually for concor dance. If this scan disagrees with the automated IG or if promyelocytes are not ed, a manual differential will be performed. Kym Gran Abs 0.05 (H) 0.00 - 0.04 x10(3)/[facility] LABORATORY Specimen Anatomical Collection Method Collection Time Receive d Time (Source) Location / / Volume Laterality Blood specimen 02/09/2020 1:17 PM 020 1:24 (specimen) EDT PM EDT Resulting Agency Comment Spec In Lab Eriberto Melgar MD HEMATOLOGY ORDERABLES Performing Organization Address City/State/ZIP Code Phon e Number [place] [phone] (ABNORMAL) Hemogram (02/09/2020 1:17 PM EDT) Analysis Performed At Patho logist Time Signature WBC 10.6 (H) 4.0 - 9.5 [facility] x10(3)/[facility] LABORATORY RBC 4.46 (L) 4.58 - [facility] 5.54 [facility] x10(6)/[facility] LABORATORY Hemoglobin 13.9 13.7 - [facility] 16.5 gm/dL [facility] Hematocrit 41.4 40.5 - [facility] 48.5 % [facility] MCV 92.8 82.9 - [facility] 93.1 fL [facility] MCH 31.2 27.5 - [facility] 32.1 pg [facility] MCHC 33.6 32.0 - [facility] 35.7 gm/dL [facility] Platelets 245 145 - 357 [facility] x10(3)/[facility] LABORATORY RDWSD 46.4 (H) 36.0 - [facility] 45.0 [facility] LABORATORY RDWCV 13.6 11.4 - [facility] 13.8 % [facility] MPV 9.8 7.6 - 12.9 [facility] LABORATORY nRBC % Auto 0.0 % [facility] nRBC Abs Auto 0.000 0.000 - [facility] 0.000 [facility] x10(3)/[facility] LABORATORY Specimen Anatomical Collection Method Collection Time Receive d Time (Source) Location / / Volume Laterality Blood specimen 02/09/2020 1:17 PM 020 1:24 (specimen) EDT PM EDT Resulting Agency Comment Spec In Lab Eriberto Melgar MD HEMATOLOGY ORDERABLES Performing Organization Address City/State/ZIP [place] [address] COVID-19 Antibody (02/09/2020 1:17 PM EDT) [facility] [place] Method Time Signature SARS-CoV-2 Not Detected Not Detected [facility] Nucleocap Ab [facility] Comment: Results cannot be used to diagnose acute SARS-CoV-2 (Severe acute respiratory syndrome coronavirus 2, also known as 20 19 novel coronavirus or 2019-nCoV) infection. A ? Not Detected? result does not rule out SARS-CoV-2 infection, particularly in those who have been in contact with the virus. Follow-up testing with a molecular diagnostic test to SARS-CoV-2 should be considered for individuals with symptoms of active SARS-CoV-2 infec tion. A ? Detected? result cannot be interpreted as conclusive evidence of protective immunity to the SARS-CoV-2 virus. Detect ion may be due to past or present infection with xvi-[id number]-2 coronaviru s strains, such as coronavirus HKU1, NL63, OC43, or 229E. This test was performed using the [employer] s Xcep-VYYG-NzJ-2 total antibody test on the Nora Jessica e801 analyzer. This s erology test is available following FDA Emergency Use Authorization, however it has not been reviewed by the FDA, nor is it FDA cleared or approved. The perfo rmance characteristics of this test were determined by the Department of Pat hology and Laboratory Medicine at [facility]. The laboratory is certified under the Clinical Laboratory Improvement Amendmen ts of 1988 (CLIA), 42 U.S.C. ?? 263a, to perform high complexity tests. Results should not be used as the sole b asis to diagnose or exclude SARS-CoV-2 infection, to inform infection status, o r to screen donated blood. Specimen Anatomical Collection Method Collection Time Receive d Time (Source) Location / / Volume Laterality Blood specimen 02/09/2020 1:17 PM 020 1:24 (specimen) EDT PM EDT Resulting Agency Comment Spec In Lab Eriberto Melgar MD CHEMISTRY ORDERABLES Performing Organization Address City/[facility] [address]/ZIP Code Phon e Number [address] Reticulocyte Count (02/09/2020 1:17 PM EDT) athologist Signature Retic Ct % 1.4 0.7 - 2.6 [facility] LABOR[facility] Retic Ct Abs 0.060 0.030 - [facility] 0.120 [facility] x10(6)/[facility] LABORATORY Immature Retic% 5.2 0.0 - 15.6 [facility] Reticulated Hgb 35.1 31.3 - [facility] 40.2 [facility] LABORATORY Specimen Anatomical Collection Method Collection Time Receive d Time (Source) Location / / Volume Laterality Blood specimen 02/09/2020 1:17 PM 020 1:24 (specimen) EDT PM EDT Resulting Agency Comment Spec In Lab Eriberto Melgar MD HEMATOLOGY ORDERABLES Performing Organization Address City/[facility] [address]/[place] [address] (ABNORMAL) Magnesium (02/09/2020 1:17 PM EDT) P athologist Signature Magnesium 0.66 (L) 0.69 - 1.07 [facility] mmol/L [facility] Specimen Anatomical Collection Method Collection Time Receive d Time (Source) Location / / Volume Laterality Blood specimen 02/09/2020 1:17 PM 020 1:24 (specimen) EDT PM EDT Resulting Agency Comment Spec In Lab Eriberto Melgar MD CHEMISTRY ORDERABLES Performing Organization Address City/[facility] [address]/ZIP Code Phon e Number [address] Phosphorus (02/09/2020 1:17 PM EDT) athologist Signature Phosphorus 3.1 2.5 - 4.5 [facility] mg/dL [facility] Specimen Anatomical Collection Method Collection Time Receive d Time (Source) Location / / Volume Laterality Blood specimen 02/09/2020 1:17 PM 020 1:24 (specimen) EDT PM EDT Resulting Agency Comment Spec In Lab Eriberto Melgar MD CHEMISTRY ORDERABLES Performing Organization Address City/[facility] [address]/[facility] Phon e Number [address] Cholesterol, total (02/09/2020 1:17 PM EDT) athologist Signature Chol, Total 115 mg/dL [facility] Comment: Lower Risk: <200 mg/dL Average Risk: 200-239 mg/dL Higher Risk: >kl=742 mg/dL Lipid Interpretation See Note [facility] Comment: Lipid management should be guided by a p atient? s ASCVD risk, goals and preferences. ACC/AHA Guidelines recommend high intens ity statin if clinical ASCVD or LDL greater than or equal to 190 mg/dL. [email or web address] Adults aged 40-75 with LDL 70-189 mg/dL should have their 10 year ASCVD risk estimated with the ACC/AHA ASCVD risk es timator http://tools.acc.org/RUJHO-Scff-Pijugdcx r/ Statin should be discussed if risk [...] Location / / Volume Laterality Blood specimen 02/09/2020 1:17 PM 020 1:24 (specimen) EDT PM EDT Resulting Agency Comment Spec In Lab Eriberto Melgar MD CHEMISTRY ORDERABLES Performing Organization Address City/[facility] [address]/ZIP Code Phon e Number [address] Uric acid (02/09/2020 1:17 PM EDT) P athologist Signature Uric Acid 6.2 3.5 - 8.5 [facility] mg/[facility] Specimen Anatomical Collection Method Collection Time Receive d Time (Source) Location / / Volume Laterality Blood specimen 02/09/2020 1:17 PM 020 1:24 (specimen) EDT PM EDT Resulting Agency Comment Spec In Lab Eriberto Melgar MD CHEMISTRY ORDERABLES Performing Organization Address City/[facility] [address]/ZIP Code Phon e Number [address] Amylase (02/09/2020 1:17 PM EDT) P athologist Signature Amylase 54 28 - 100 [facility] unit/[facility] LABORATORY Specimen Anatomical Collection Method Collection Time Receive d Time (Source) Location / / Volume Laterality Blood specimen 02/09/2020 1:17 PM 020 1:24 (specimen) EDT PM EDT Resulting Agency Comment Spec In Lab Eriberto Melgar MD CHEMISTRY ORDERABLES Performing Organization Address City/[facility] [address]/ZIP Code Phon e Number [address] Lipase (02/09/2020 1:17 PM EDT) P athologist Signature Lipase 21 0 - 60 [facility] unit/[facility] Specimen Anatomical Collection Method Collection Time Receive d Time (Source) Location / / Volume Laterality Blood specimen 02/09/2020 1:17 PM 020 1:24 (specimen) EDT PM EDT Resulting Agency Comment Spec In Lab Eriberto Melgar MD CHEMISTRY ORDERABLES Performing Organization Address City/State/ZIP [place] [address] (ABNORMAL) Comprehensive metabolic panel (non-fasting) (02/09/2020 1:17 PM EDT) P athologist Signature Glucose Lvl 109 65 - 199 [facility] mg/dL [facility] Comment: Diabetes: >=200 mg/dL plus symp toms BUN 13 10 - 20 mg/dL [facility] Creatinine 1.20 0.80 - 1.50 mg/dL [facility] Sodium 127 (L) 135 - 145 mmol/L [facility] Potassium 4.8 3.5 - 5.0 mmol/L [facility] Comment: Please note: ??Patients with WBC >100,00 0 may have falsely elevated Potassium levels. ??For accurate Potassium quantif ication in these patients send serum separator tube (gold top) for subsequent determinations. ??Contact the Clinical Chemistry Laboratory if there are any qu estions. Chloride 92 (L) 98 - 107 mmol/L [facility] CO2 23 22 - 31 mmol/L [facility] Anion Gap 12 5 - 15 mmol/L [facility] Calcium 9.3 8.5 - 10.5 mg/dL [facility] Total Protein 7.4 6.1 - 8.0 gm/dL [facility] Albumin 4.7 3.2 - 5.2 gm/dL [facility] AST 22 0 - 39 unit/L [facility] ALT 24 0 - 55 unit/L [facility] Alk Phos 135 (H) 40 - 130 unit/L [facility] Total Bilirubin 1.1 0.2 - 1.3 mg/dL [facility] Estimated GFR 69 >=60 mL/min/1.73 m?? [facility] Comment: The eGFR was calculated using the CKD-EP I equation. As with all creatinine based estimates of kidney function, eGFR values calculated with the CKD-EPI equation are not accurate in patients wi th acute kidney failure, extremes of body mass or the acutely ill. [email or web address] eGFR 80 >=60 mL/min/1.73 m?? [facility] Comment: The eGFR was calculated using the CKD-EP I equation. As with all creatinine based estimates of kidney function, eGFR values calculated with the CKD-EPI equation are not accurate in patients wi th acute kidney failure, extremes of body mass or the acutely ill. [email or web address] Specimen Anatomical Collection Method Collection Time Receive d Time (Source) Location / / Volume Laterality Blood specimen 02/09/2020 1:17 PM 020 1:24 (specimen) EDT PM EDT Resulting Agency Comment Spec In Lab Eriberto Melgar MD CHEMISTRY ORDERABLES Performing Organization Address City/[facility] [address]/[facility] [place] [address] Tacrolimus level (02/09/2020 1:17 PM EDT) athologist Signature Tacrolimus Lvl 14.3 ng/mL [facility] Comment: Trough therapeutic: ??5-15 ng/mL Performed by ultra-performance liquid ch romatography tandem mass spectrometry (UPLCMS/MS). This test was developed and its performa nce characteristics determined by [facility]. It has not been cleared or approved by the FDA. The laboratory is regulated under CLIA a s qualified to perform high-complexity testing. This test is used for clinical purposes. It should not be regarded as investigational or for research. 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
--- OUTSIDE RECORDS SUMMARY | 2022-03-13 18:25 | XMS_ITS | Encounter Summary ---
:1965 Author Organization [facility] [place] [address] Care Team Providers Name Role Phone Anna Mullen MD Primary Care Provider Encounter Details Date Type Department Care Team Description 02/09/2020 Hospital Encounter XRay at [facility] Chobanian, Pancreas replaced by transpl ant; 1 [facility] [address] Eriberto Stoddard MD SOB (shortness of breath) [facility] [address] [place] [phone] [place] [address] Social History Tobacco Use Types Packs/Day Years [...] Sig Dispensed Refills Start Date End Date clopidogrel (PLAVIX) 75 Take 1 tablet by [...] 6 09/14/2012 mg tablet Dx code :250.60 fludrocortisone Take 1 tablet by 30 tablet 3 02/09/2020 (Florinef) 0.1 mg Tablet mouth daily. predniSONE (Deltasone) 4 tablets X 1day, 12 tablet 0 201902/28/2020 20 mg Tablet THEN 3 tablets X 1 day, THEN 2 tablets X 1 day, THEN 1.5 tablets X 1 day, THEN 1 tablet X 1 day mycophenolate (Cellcept) TAKE TWO CAPSULES 360 capsule 0 03/202006/21/2020 250 mg Capsule BY MOUTH TWICE A DAY gabapentin (NEURONTIN) Take 3 capsules by 90 capsule 12 08/0702/28/2020 300 mg Capsule mouth nightly. 300 mg in the morning and 900 mg at night. PROGRAF 1 mg Capsule TAKE TWO CAPSULES 120 capsule 11 019 02/23/2020 BY MOUTH in AM and 1 capsule in PM. Pancreas transplant 08/28/2013. ICD code Z94.83 traZODone (DESYREL) 50 TAKE ONE TABLET BY 90 tablet 3 05/0404/30/2020 mg Tablet MOUTH EVERY EVENING lisinopril Take 1.5 tablets by 270 tablet 3 03/02/201906/13 (PRINIVIL;ZESTRIL) 20 mg mouth 2 times TabletIndications: daily. Aftercare following organ transplant acetaminophen (TYLENOL) Take 2 tablets by 30 tablet 0 09/0205/22/2020 325 mg tablet mouth every 4 hours as needed (Pain, Fever. if oral temperature greater than 38.5 Centigrade). documented as of this encounter Plan of Treatment Not on filedocumented as of this encounter Procedures Procedure Name Priority Date/Time Associated Diagnosis Comme nts XR CHEST PA AND Routine 02/09/2020 1:11 PM Pancreas replaced b y Results for this LATERAL EDT transplant procedure are in SOB (shortness of the result s breath) section. documented in this encounter Results XR Chest PA & Lateral (Generic) (02/09/2020 1:11 PM EDT) Anatomical Region Laterality Modality Chest N/A Digital Radiography Specimen (Source) Anatomical Location Collection Method / Collectio n Time Received Time / Laterality Volume Impressions 02/09/2020 1:16 PM EDT No acute or chronic pulmonary infiltrate seen Thank you for letting us participate in the care of this patient. For questions regarding this report, please contact e number below. ? Narrative 02/09/2020 1:16 PM EDT EXAMINATION: XR CHEST PA AND LATERAL (GENERIC) CLINICAL HISTORY: recent respiratory inf ection wiht continued SOB TECHNIQUE: PA and lateral views of the chest COMPARISON: 08/06/2019 FINDINGS: There is a thoracal lumbar scoliosis con vex right. Heart size is normal. Lungs and pleural spaces are clear. Pulm onary vascularity is normal. No focal osseous lesion is seen. Procedure Note Alfonso Queen MD - 02/09/2020Format ting of this note might be different from the original. EXAMINATION: XR CHEST PA AND LATERAL (GE NERIC) CLINICAL HISTORY: recent respiratory inf ection wiht continued SOB TECHNIQUE: PA and lateral views of the chest COMPARISON: 08/06/2019 FINDINGS: There is a thoracal lumbar scoliosis con vex right. Heart size is normal. Lungs and pleural spaces are clear. Pulm onary vascularity is normal. No focal osseous lesion is seen. IMPRESSION No acute or chronic pulmonary infiltrate seen Thank you for letting us participate in the care of this patient. For questions regarding this report, please contact [facility] number below. Eriberto Melgar MD IMG DX ORDERABLES documented in this encounter Visit Diagnoses Diagnosis 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 SOB (shortness of breath) Shortness of breath documented in this encounter Care Teams Curtain Supervisor Relationship Specialty Start Date End Date Anna Mullen MD PCP - General 12/03/10 [address] [place] [address] documented as of this encounter
--- OUTSIDE RECORDS SUMMARY | 2022-03-13 18:25 | XMS_ITS | Encounter Summary ---
:1965 Author Organization [place] [address] Care Team Providers Name Role Phone Anan Mullen MD Primary Care Provider Reason for [...] Expiration Date Visits Requ ested Visits Authorized [id number] 1 1 Encounter Details Date Type Department Care Team Description 07/09/2020 Hospital Encounter Pain Management Oracio Alejandra, Inter vertebral disc Tiffani Hall MD disorder with [facility] MEDICAL radiculopathy of [facility] lumbar region [facility] [place] [phone] Social History Tobacco Use Types Packs/Day Years Used Date Never Smoker Smokeless Tobacco: Never Used Alcohol Use Standard Drinks/Week Comments No 0 (1 standard drink = 0.6 oz pure alcoho l) history of abuse, stopped 1996 Sex Assigned at Date Recorded Male 05/29/2021 11:28 PM EDT documented as of this encounter Last Filed Vital Signs Vital Sign Reading Time Taken Comments Blood Pressure 139/72 07/09/2020 9:00 AM EST Pulse - - Temperature - - Respiratory Rate 20 07/09/2020 9:00 AM EST Oxygen Saturation 100% 07/09/2020 9:00 AM EST Inhaled Oxygen Concentration - - Weight 95.3 kg (210 lb) 07/09/2020 9:00 AM EST Height 182.9 cm (6') 07/09/2020 9:00 AM EST Body Mass Index 28.48 07/09/2020 9:00 AM EST documented in this encounter Discharge Instructions Discharge InstructionsScAldair faulkner RN - 07/09/2020 9:53 AM EST [facility] Discharge Instructions: You were seen today by Surgeon(s): Oracio Alejandra MD Truong, Quyen V, MD The following was performed: Procedure(s) (LRB): [...] During Procedure Date/Time Order Dose Route Action 07/09/2020952 dexamethasone(PF) (Decadron) 10 mg/mL injection 10 mg Epidural Given 07/09/2020 0950 iohexoL (OMNIPAQUE) 240 mg/mL solution 1 mL Epidural Given 07/09/2020 0953 lidocaine (PF) (Xylocaine) 1% (10 mg/mL) injection 2 mL Given During regular business hours, please phone [...] 6 09/14/2012 mg tablet Dx code :250.60 mycophenolate (Cellcept) TAKE TWO CAPSULES 360 capsule [...] documented as of this encounter H&P Notes Chelsie Doe MD - 07/09/2020 9:34 AM EST Patient Name: Richard Hsu Patient Age: 54 y.o. Birthdate: 1965 Admit date: 07/09/2020 Attending Physician: Oracio Alejandra MD PREPROCEDURE HISTORY AND PHYSICAL Date of Visit: July 09, 2020 Chief Complaint: Low back pain radiating to the left anterior thigh HPI: Subjective Richard Hsu is a 54 y.o. male who presents today for Procedure: left L2-L3 lumbar transforaminal epidural steroid injection Referred by Benjy Yang The history is obtained from the patient, and I have reviewed medical records provided by the referring physician and located in the electronic medical record to fill in gaps in the patient's recollection of events, treatments and outcomes. LOCATION: Low back and left thigh PAIN LEVEL AT REST 04/09 PAST MEDICAL HISTORY: Past Medical History: Diagnosis [...] of heart aortic valve ??? Severe headache There are no medical history contraindications to this procedure. PAST SURGICAL HISTORY: Past Surgical History: Procedure Laterality Date ??? APPENDECTOMY ??? BRAIN SURGERY 1976 stroke paralyze left side neck down ??? CARPAL TUNNEL RELEASE ??? CREATED BY INTERFACE EGD-BIOPSY Procedure Date: 07/18/2009 ??? CREATED BY INTERFACE Entered not Verified Procedure Date: 10/24/2010 ??? PRO COLONOSCOPY, DIAGNOSTIC N/A 10/24/2014 COLONOSCOPY, DIAGNOSTIC performed by Anna Rapp MD at [facility] ENDOSCOPY ??? PRO TRANSPLANT ALLOGRAFT PANCREAS 08/28/2013 @PANCREATIC TRANSPLANT performed by Iraj Keller MD at [facility] MAIN OR ??? PRO TRANSPLANT, PREP DONOR PANCREAS 08/28/2013 @PREPARATION CADAVERIC PANCREAS, STANDARD performed by Iraj Keller MD at [facility] MAIN OR ??? PRO UNLISTED PROCEDURE, MUSCULOSKELETAL SYSTEM, GENERAL 10 years carpel tunnel ??? PRO UPPER GI ENDOSCOPY, BIOPSY 12/31/2011 UPPER GASTROINTESTINAL ENDOSCOPY,WITH BIOPSY SINGLE OR MULTIPLE performed by MAURICIO BHAKTA at [facility] ENDOSCOPY ??? PRO UPPER GI ENDOSCOPY, BIOPSY N/A 08/15/2015 EGD WITH BIOPSY performed by Mauricio Bhakta MD at [facility] ENDOSCOPY ??? SHOULDER SURGERY ??? UPPER GI ENDOSCOPY, EXAM 12/31/2011 UPPER GI ENDOSCOPY performed by MAURICIO BHAKTA at [facility] ENDOSCOPY There are no medical history contraindications to this procedure. ALLERGIES: Lisinopril, Esomeprazole, Nexium [esomeprazole magnesium], Omeprazole, Prilosec [omeprazole magnesium], Reglan [metoclopramide hcl], and Simvastatin There are no allergic contraindications to this procedure. MEDICATIONS: No current facility-administered medications on file prior to encounter. Current Outpatient Medications on File Prior to Encounter Medication Sig Dispense Refill ??? fludrocortisone (Florinef) 0.1 mg Tablet TAKE 1 TABLET BY MOUTH ONCE DAILY 90 tablet 2 ??? acetaminophen (Tylenol) 500 mg Tablet Take 1,000 mg by mouth every 6 hours as needed for Pain. ??? traZODone (Desyrel) 50 mg Tablet TAKE [...] Dx code :250.60 60 tablet 6 ??? amoxicillin (Amoxil) 500 mg Capsule TAKE 4 CAPSULES BY MOUTH 1 HOUR PRIOR TO DENTAL APPOINTMENT ??? [employer] Ultra Blue Test Strip Strip TEST BLOOD SUGAR ONCE DAILY There are no allergic contraindications to this procedure. 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 ROS: Pt denies recent fever, chills, infection, wounds, hospitalizations, ED visits, use of antibiotics. Otherwise, as described above. PHYSICAL EXAM: BP 139/72 Resp 20 Ht 182.9 cm (6') Wt 95.3 kg (210 lb) SpO2 100% BMI 28.48 kg/m?? Physical Exam Constitutional: Pt oriented to person, place, and time. Appears well-developed and well-nourished. No distress. HENT: Normocephalic and atraumatic. Pulmonary/Chest: Effort normal. Neurological: Alert and oriented to person, place, and time. No cranial nerve deficit. Moves all extremities at least antigravity Skin: Skin is warm and dry. No rash noted. Not diaphoretic. Psychiatric: Normal mood and affect. There are no physical examination findings which would preclude this procedure. RADIOLOGIC DATA: Relevant imaging reviewed LABS/DX RESULTS: [...] BILITOT 0.7 0.7 1.1 Last 3 Coags No results for input(s): PT, INR, PTT in the last 168 hours. Last 3 HgbA1C Recent Labs 05/21/20 1349 HA1C 5.0 ASSESSMENT: Assessment 1. Intervertebral disc disorder with radiculopathy of lumbar region PLAN: Proceed with planned left L2-L3 lumbar transforaminal epidural steroid injection. Addressed all questions and concerns. Risks and benefits discussed with patient. No contraindications to the procedure at this time, will proceed. Chelsie Doe MD Pain Management Fellow [place] [phone] / [facility] documented in this encounter Miscellaneous Notes Op Note - Chelsie Doe MD - 07/09/2020 9:57 AM EST Pain Management Operative Note Patient Name: Richard Hsu : [id number] MR#: [id number] Case Date: 07/09/2020 Surgeon: Surgeon(s) and Role: * Oracio Alejandra MD - Primary Chelsie Doe MD - Fellow Present on Admission: ??? Intervertebral disc disorder with radiculopathy of lumbar region Postoperative diagnosis: same Procedure(s) (LRB): INJECTION, ANESTHETIC AGENT AND/OR STEROID, TRANSFORAMINAL EPIDURAL, LUMBAR OR SACRAL, SINGLE LEVEL (WRVU 1.9) (N/A) LUMBAR TRANSFORAMINAL EPIDURAL STERIOID INJECTION PROCEDURE NOTE Mr. Richard Hsu has been referred to the Pain Management Center for a lumbar epidural steroid injection by Benjy Yang MD [facility] [place] [place] [address]. The patient complains of low back pain [...] skin entry point for entering/approaching the L2-L3 neuroforaminal space for the lumbar transforaminal epidural steroid injection was marked. Following thorough chlorh exadine preparation of the skin and draping and 1% lidocaine infiltration of the skin entry point and subcutaneous tissues, a 22 gauge curved tip spinal needle was then inserted, advanced with fluoroscopic guidance into the neural foramen, confirmed on the lateral view..Needle tip placement and depth were aided and confirmed by fluoroscopy. There was no paresthesia or return of blood or CSF through the needle. 2 cc's of Omnipaque 240 was injected (48 cc's was wasted) with clear epidural spread confirmed with fluoroscopy with static, live, and digital subtraction modes. There was no evidence of intravascular uptake, the epidural space was delineated. 10 mg of preservative-free Dexamethasone (10 mg/c c) was injected. This was followed by 1 cc of preservative-free lidocaine 1% to flush the steroid out of the needle. There was not any unusual discomfort expressed by Mr. Hsu. (48 cc of Omnipaque was wasted) Mr. Hsu's vital signs were stable throughout the procedure and were as recorded in nursing records. Follow up plans and appointments were discussed with Mr. Hsu. The patient is set to follow up with Dr. Yang. Post procedure instruction was given as documented in nursing records and having met discharge criteria he was discharged from the Pain Management Center. Comments: left L2-L3 TFESI. Immediately post procedure, patient reports pain improvement from 8-10/10 to 2/10. If this procedure is successful in helping with pain and improving his function, it can becompleted a maximum of 3 times every 12 months. Chelsie Doe MD CC: Benjy Yang MD [facility] [place] [address] Associated attestation - Oracio Alejandra MD - 07/12/2020 1:20 AM EST Attestation: Case Date: 07/09/2020 I was present and I participated during the entire procedure (does not need to include opening and closing). Oracio Alejandra MD 07/12/2020 documented in this encounter Plan of Treatment Not on filedocumented as of this encounter Visit Diagnoses Diagnosis Intervertebral disc disorder with radicu lopathy of lumbar region Thoracic or lumbosacral neuritis or radi culitis, unspecified documented in this encounter Active and Recently Administered Medications Times are shown in EST. PRN Medication Order 07/07/2020 07/08/2020 07/09/2020 dexamethasone(PF) (Decadron) 10 mg/mL injection (CANCELED) 0953 (Given - Provider: Chelsie Clemente MD) ONCE PRN, Starting 07/09/20 at 0953, Until 07/09/20 at 1157, Intra- Operative (Intra-Procedure), Routine iohexoL (OMNIPAQUE) 240 mg/mL solution (CANCELED) 0950 (Given - Provider: Chelsie Clemente MD) ONCE PRN, Starting 07/09/20 at 0950, Until 07/09/20 at 1157, Intra- Operative (Intra-Procedure), Routine lidocaine (PF) (Xylocaine) 1% (10 mg/mL) injection (CANCELED) 0953 (Given - Provider: Chelsie Clemente MD) ONCE PRN, Starting Thu07/09/20 at 0953, Until Thu07/09/20 at 1157, Intra- Operative (Intra-Procedure), Routine documented in this encounter Care Teams Cullet Trucker Relationship Specialty Start Date End Date Anna Mullen MD PCP - General 12/03/10 [address] [place] [address] documented as of this encounter
--- OUTSIDE RECORDS SUMMARY | 2022-03-13 18:25 | XMS_ITS | Encounter Summary ---
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 HEMOGRAM Routine 02/16/2020 8:01 AM Pancreas replaced Resu lts for this EDT by transplant procedure are in SOB (shortness of the result s breath) section. DIFFERENTIAL, Routine 02/16/2020 8:01 AM Pancreas replaced Res ults for this AUTOMATED EDT by transplant procedure are in SOB (shortness of the result s breath) section. HC FK-506 (TACROLIMUS) Routine 02/16/2020 8:01 AM Pancreas rep laced Results for this EDT by transplant procedure are in SOB (shortness of the result s breath) section. HC RETIC,AUTO INCLUDES Routine 02/16/2020 8:01 AM Pancreas rep laced Results for this RETHE & IRF EDT by transplant procedure are in SOB (shortness of the result s breath) section. HC CBC,PLT & AUTO DIFF Routine 02/16/2020 8:01 AM Pancreas rep laced EDT by transplant SOB (shortness of breath) HC URIC ACID, SERUM Routine 02/16/2020 8:01 AM Pancreas replac ed Results for this EDT by transplant procedure are in SOB (shortness of the result s breath) section. HC PHOSPHORUS, SERUM Routine 02/16/2020 8:01 AM Pancreas repla [place] Results for this EDT by transplant procedure are in SOB (shortness of the result s breath) section. HC MAGNESIUM, SERUM Routine 02/16/2020 8:01 AM Pancreas replac ed Results for this EDT by transplant procedure are in SOB (shortness of the result s breath) section. HC LIPASE Routine 02/16/2020 8:01 AM Pancreas replaced Resu lts for this EDT by transplant procedure are in SOB (shortness of the result s breath) section. HC CHOLESTEROL Routine 02/16/2020 8:01 AM Pancreas replaced Re sults for this EDT by transplant procedure are in SOB (shortness of the result s breath) section. HC AMYLASE Routine 02/16/2020 8:01 AM Pancreas replaced Resu lts for this EDT by transplant procedure are in SOB (shortness of the result s breath) section. COMPREHENSIVE Routine 02/16/2020 8:01 AM Pancreas replaced Res ults for this METABOLIC PANEL EDT by transplant procedure are in (NON-FASTING) SOB (shortness of the resul ts breath) section. documented in this encounter Results Urinalysis with reflex Culture (02/16/2020 8:06 AM EDT) [facility] Method Time Signature Glucose UA Negative Negative [place] mg/dL [facility] Protein UA Negative Negative [facility] mg/dL [facility] Bilirubin UA Negative Negative [facility] [place] mg/dL [facility] Comment: Clinical correlation required for positi ve Urine Bilirubin results as false positive may occur with some drugs and d rug related products. If a false positive is suspected a serum total bili sinha should be considered if clinically indicated. Urobilinogen UA Normal Normal mg/dL [facility] pH UA 6.0 5.0 - 8.0 [facility] Blood UA Negative Negative mg/dL [facility] Ketones UA Negative Negative mg/dL [facility] Nitrite UA Negative Negative [facility] Leukocytes UA Negative Negative [facility] LABORATORY Appearance UA Clear Clear [facility] Spec [place] UA 1.010 1.006 - 1.030 [facility] Color UA Yellow Yellow [facility] Culture Reflexed No [facility] Specimen (Source) Anatomical Collection Method Collection Time Re ceived Time Location / / Volume Laterality Urine specimen 02/16/2020 8:06 02/16/2020 8:11 obtained by clean AM EDT AM EDT catch procedure (specimen) Resulting Agency Comment Spec In Lab Eriberto Melgar MD URINE ORDERABLES Performing Organization Address City/State/ZIP Code Phon e Number [place] [id number] (ABNORMAL) Differential, Automated (02/16/2020 8:01 AM EDT) [facility] Method Time Signature Neutrophils % 43.6 % [facility] Neutr Abs (ANC) 4.55 1.70 - [facility] 6.10 [facility] x10(3)/[facility] LABORATORY Lymphocytes % 41.7 % [facility] Lymphocytes Abs 4.3 (H) 0.9 - 3.2 [facility] x10(3)/[facility] LABORATORY Monocytes % 9.2 % [facility] Monocyte Abs 1.0 (H) 0.3 - 0.9 [facility] x10(3)/[facility] LABORATORY Eosinophils % 2.3 % [facility] Eosinophils Abs 0.2 0.0 - 0.4 [facility] x10(3)/[facility] LABORATORY Basophils % 1.1 % [facility] Basophils Abs 0.1 0.0 - 0.1 [facility] x10(3)/[facility] LABORATORY Immature Gran % 2.10 % [facility] Comment: Immature granulocytes(IG's)percentage an d absolute count will include metamyelocytes, myelocytes, and promyelo cytes. Blood smears from CBCs yielding IG's will be scanned manually for concor dance. If this scan disagrees with the automated IG or if promyelocytes are not ed, a manual differential will be performed. Kym Gran Abs 0.22 (H) 0.00 - 0.04 x10(3)/[facility] LABORATORY Specimen Anatomical Collection Method Collection Time Receive d Time (Source) Location / / Volume Laterality Blood specimen 02/16/2020 8:01 AM 020 8:07 (specimen) EDT AM EDT Resulting Agency Comment Spec In Lab Eriberto Melgar MD HEMATOLOGY ORDERABLES Performing Organization Address City/State/[place] [address] (ABNORMAL) Hemogram (02/16/2020 8:01 AM EDT) Analysis Performed At Patho logist Time Signature WBC 10.4 (H) 4.0 - 9.5 [facility] x10(3)/[facility] LABORATORY RBC 4.44 (L) 4.58 - [facility] 5.54 [facility] x10(6)/[facility] LABORATORY Hemoglobin 13.7 13.7 - [facility] 16.5 gm/dL [facility] Hematocrit 41.7 40.5 - [facility] 48.5 % [facility] MCV 93.9 (H) 82.9 - [facility] 93.1 [facility] LABORATORY MCH 30.9 27.5 - [facility] 32.1 pg [facility] MCHC 32.9 32.0 - [facility] 35.7 gm/dL [facility] Platelets 274 145 - 357 [facility] x10(3)/[facility] LABORATORY RDWSD 45.7 (H) 36.0 - [facility] 45.0 [facility] RDWCV 13.4 11.4 - [facility] 13.8 % [facility] MPV 9.8 7.6 - 12.9 [facility] nRBC % Auto 0.0 % [facility] nRBC Abs Auto 0.000 0.000 - [place] 0.000 [facility] x10(3)/[facility] LABORATORY Specimen Anatomical Collection Method Collection Time Receive d Time (Source) Location / / Volume Laterality Blood specimen 02/16/2020 8:01 AM 020 8:07 (specimen) EDT AM EDT Resulting Agency Comment Spec In Lab Eriberto Melgar MD HEMATOLOGY ORDERABLES Performing Organization Address City/State/ZIP Code Phon e Number [address] Reticulocyte Count (02/16/2020 8:01 AM EDT) P athologist Signature Retic Ct % 1.8 0.7 - 2.6 [facility]OR[facility] Retic Ct Abs 0.080 0.030 - [place] 0.120 [facility] x10(6)/[facility] LABORATORY Immature Retic% 8.5 0.0 - 15.6 [facility] Reticulated Hgb 36.4 31.3 - [facility] 40.2 [facility] LABORATORY Specimen Anatomical Collection Method Collection Time Receive d Time (Source) Location / / Volume Laterality Blood specimen 02/16/2020 8:01 AM 020 8:07 (specimen) EDT AM EDT Resulting Agency Comment Spec In Lab Eriberto Melgar MD HEMATOLOGY ORDERABLES Performing Organization Address City/State/ZIP Code Phon e Number [address] Magnesium (02/16/2020 8:01 AM EDT) P athologist Signature Magnesium 0.82 0.69 - 1.07 [facility] mmol/L [facility] Specimen Anatomical Collection Method Collection Time Receive d Time (Source) Location / / Volume Laterality Blood specimen 02/16/2020 8:01 AM 020 8:07 (specimen) EDT AM EDT Resulting Agency Comment Spec In Lab Eriberto Melgar MD CHEMISTRY ORDERABLES Performing Organization Address City/State/ZIP Code Phon e Number [address] Phosphorus (02/16/2020 8:01 AM EDT) athologist Signature Phosphorus 3.6 2.5 - 4.5 [facility] mg/dL [facility] Specimen Anatomical Collection Method Collection Time Receive d Time (Source) Location / / Volume Laterality Blood specimen 02/16/2020 8:01 AM 020 8:07 (specimen) EDT AM EDT Resulting Agency Comment Spec In Lab Eriberto Melgar MD CHEMISTRY ORDERABLES Performing Organization Address City/[facility] [address]/ZIP Code Phon e Number [address] Cholesterol, total (02/16/2020 8:01 AM EDT) athologist Signature Chol, Total 119 mg/dL [facility] Comment: Lower Risk: <200 mg/dL Average Risk: 200-239 mg/dL Higher Risk: >jn=645 mg/dL Lipid Interpretation See Note [facility] Comment: Lipid management should be guided by a p atient? s ASCVD risk, goals and preferences. ACC/AHA Guidelines recommend high intens ity statin if clinical ASCVD or LDL greater than or equal to 190 mg/dL. http://Kaptururl.com/JOI-UUM-Voqgdnivi Adults aged 40-75 with LDL 70-189 mg/dL should have their 10 year ASCVD risk estimated with the ACC/AHA ASCVD risk es timator http://tools.acc.org/HFGNV-Hdgw-Vfucfdch r/ Statin should be discussed if risk [...] Location / / Volume Laterality Blood specimen 02/16/2020 8:01 AM 020 8:07 (specimen) EDT AM EDT Resulting Agency Comment Spec In Lab Eriberto Melgar MD CHEMISTRY ORDERABLES Performing Organization Address City/[facility] [address]/ZIP [place] [address] Uric acid (02/16/2020 8:01 AM EDT) P athologist Signature Uric Acid 6.7 3.5 - 8.5 [facility] mg/dL [facility] Specimen Anatomical Collection Method Collection Time Receive d Time (Source) Location / / Volume Laterality Blood specimen 02/16/2020 8:01 AM 020 8:07 (specimen) EDT AM EDT Resulting Agency Comment Spec In Lab Eriberto Melgar MD CHEMISTRY ORDERABLES Performing Organization Address City/[facility] [address]/ZIP Code Phon e Number [address] Amylase (02/16/2020 8:01 AM EDT) P athologist Signature Amylase 47 28 - 100 [facility] LABORATORY Specimen Anatomical Collection Method Collection Time Receive d Time (Source) Location / / Volume Laterality Blood specimen 02/16/2020 8:01 AM 020 8:07 (specimen) EDT AM EDT Resulting Agency Comment Spec In Lab Eriberto Melgar MD CHEMISTRY ORDERABLES Performing Organization Address City/[facility] [address]/ZIP Code Phon e Number [address] Lipase (02/16/2020 8:01 AM EDT) P athologist Signature Lipase 24 0 - 60 [facility] LABORATORY Specimen Anatomical Collection Method Collection Time Receive d Time (Source) Location / / Volume Laterality Blood specimen 02/16/2020 8:01 AM 020 8:07 (specimen) EDT AM EDT Resulting Agency Comment Spec In Lab Eriberto Melgar MD CHEMISTRY ORDERABLES Performing Organization Address City/State/[place] [address] (ABNORMAL) Comprehensive metabolic panel (non-fasting) (02/16/2020 8:01 AM EDT) P athologist Signature Glucose Lvl 100 65 - 199 [facility] mg/dL [facility] Comment: Diabetes: >=200 mg/dL plus symp toms BUN 19 10 - 20 mg/dL [facility] Creatinine 1.00 0.80 - 1.50 mg/dL [facility] Sodium 133 (L) 135 - 145 mmol/L [facility] Potassium 4.2 3.5 - 5.0 mmol/L [facility] Comment: Please note: ??Patients with WBC >100,00 0 may have falsely elevated Potassium levels. ??For accurate Potassium quantif ication in these patients send serum separator tube (gold top) for subsequent determinations. ??Contact the Clinical Chemistry Laboratory if there are any qu estions. Chloride 95 (L) 98 - 107 mmol/L [facility] CO2 29 22 - 31 mmol/L [facility] Anion Gap 9 5 - 15 mmol/L [facility] Calcium 9.4 8.5 - 10.5 mg/dL [facility] Total Protein 6.9 6.1 - 8.0 gm/dL [facility] Albumin 4.2 3.2 - 5.2 gm/dL [facility] AST 11 0 - 39 unit/L [facility] ALT 16 0 - 55 unit/L [facility] Alk Phos 128 40 - 130 unit/L [facility] Total Bilirubin 0.7 0.2 - 1.3 mg/dL [facility] Estimated GFR 86 >=60 mL/min/1.73 m?? [facility] Comment: The eGFR was calculated using the CKD-EP I equation. As with all creatinine based estimates of kidney function, eGFR values calculated with the CKD-EPI equation are not accurate in patients wi th acute kidney failure, extremes of body mass or the acutely ill. http://[employer]/[facility] CITYnkf eGFR 100 >=60 mL/min/1.73 m?? [facility] Comment: The eGFR was calculated using the CKD-EP I equation. As with all creatinine based estimates of kidney function, eGFR values calculated with the CKD-EPI equation are not accurate in patients wi th acute kidney failure, extremes of body mass or the acutely ill. http://P[employer]/[facility] CITYnkf Specimen Anatomical Collection Method Collection Time Receive d Time (Source) Location / / Volume Laterality Blood specimen 02/16/2020 8:01 AM 020 8:07 (specimen) EDT AM EDT Resulting Agency Comment Spec In Lab Eriberto Melgar MD CHEMISTRY ORDERABLES Performing Organization Address City/[facility] [address]/[facility] [place] [address] Tacrolimus level (02/16/2020 8:01 AM EDT) P athologist Signature Tacrolimus Lvl 5.7 ng/mL [facility] Comment: Trough therapeutic: ??5-15 ng/mL Performed by ultra-performance liquid ch romatography tandem mass spectrometry (UPLCMS/MS). This test was developed and its performa nce characteristics determined by [facility]. It has not been cleared or approved by the FDA. The laboratory is regulated under CLIA a s qualified to perform high-complexity testing. This test is used for clinical purposes. It should not be regarded as investigational or for research. 

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
--- OUTSIDE RECORDS SUMMARY | 2022-03-13 18:25 | XMS_ITS | Encounter Summary ---
:1965 Author Organization [facility] Address [facility] [address] [place] [address] Care Team Providers Name Role Phone Anna [...] Expiration Date Visits Requ ested Visits Authorized [id number] 1 1 Encounter Details Date Type Department Care Team Description 07/09/2020 Surgery Pain Management Oracio Tran MD INJECTION, ANESTHETIC [facility] AGE NT AND/OR STEROID, [facility] TRANSFTONIAMINGEORGINA EPIDURAL, [facility] PAIN CL[facility]IC LUMBAR OR SACRAL, [place] [address] LEVEL (WRVU 1.9) [place] [address] [phone] Social History Tobacco Use Types Packs/Day Years [...] During Procedure Date/Time Order Dose Route Action 07/09/2020 09 dexamethasone(PF) (Decadron) 10 mg/mL injection 10 mg [...] DIAGNOSTIC performed by Anna Rapp MD at [facility] ENDOSCOPY ??? PRO TRANSPLANT ALLOGRAFT PANCREAS 08/28/2013 @PANCREATIC TRANSPLANT performed by Iraj Keller MD at [facility] MAIN OR ??? PRO TRANSPLANT, PREP DONOR PANCREAS 08/28/2013 @PREPARATION CADAVERIC PANCREAS, STANDARD performed by Iraj Keller MD at [facility] MAIN OR ??? PRO UNLISTED PROCEDURE, MUSCULOSKELETAL SYSTEM, GENERAL 10 years carpel tunnel ??? PRO UPPER GI ENDOSCOPY, BIOPSY 12/31/2011 UPPER GASTROINTESTINAL ENDOSCOPY,WITH BIOPSY SINGLE OR MULTIPLE performed by MAURICIO BHAKTA at [facility] ENDOSCOPY ??? PRO UPPER GI ENDOSCOPY, BIOPSY N/A 08/15/2015 EGD WITH BIOPSY performed by Mauricio Bhakta MD at [facility] ENDOSCOPY ??? SHOULDER SURGERY ??? UPPER GI ENDOSCOPY, EXAM 12/31/2011 UPPER GI ENDOSCOPY performed by MAURICIO BHAKTA at [facility] ENDOSCOPY There are no medical history [...] 1 HOUR PRIOR TO DENTAL APPOINTMENT ??? 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 Chelsie Doe MD Pain Management Fellow [address] [phone] / [facility] documented in this encounter Miscellaneous Notes Op Note - Chelsie Doe MD - 07/09/2020 9:57 AM EST Pain Management Operative Note Patient Name: Richard Hsu : [id number] MR#: [id number] Case Date: 07/09/2020 Surgeon: Surgeon(s) and Role: [...] epidural steroid injection by Benjy Yang MD [facility] [address]. The patient complains of low back pain [...] Chelsie Doe MD CC: Benjy Yang MD [facility] [address] Associated attestation - Oracio Alejandra MD - [...] MAR Action Action Date Dose Rate Site dexamethasone(PF) (Decadron) 10 Given 07/09/2020 9:53 AM EST 10 mg mg/mL injection ONCE PRN, Starting on Thu07/09/20 at 0953, Until Thu07/09/20 at 1157, Intra-Operative (Intra-Procedure), Routine iohexoL (OMNIPAQUE) 240 mg/mL solution Given 07/09/2020 9:50 AM EST 1 mL ONCE PRN, Starting on Thu07/09/20 at 0950, Until Thu07/09/20 at 1157, Intra-Operative (Intra-Procedure), Routine lidocaine (PF) (Xylocaine) 1% (10 mg/mL) Given 07/09/2020 9:53 A M EST 2 mLs injection ONCE PRN, Starting on Thu07/09/20 at 0953, Until Thu07/09/20 at 1157, Intra-Operative (Intra-Procedure), Routine documented in this encounter [...] 07/09/20 at 1157, Intra- Operative (Intra-Procedure), Routine documented in this encounter Care Teams Rn Community Relationship Specialty Start Date End Date Anna Mullen MD PCP - General 12/03/10 [address] [place] [address] documented as of this encounter
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
--- OUTSIDE RECORDS SUMMARY | 2022-03-13 18:25 | XMS_ITS | Encounter Summary ---
:1965 Author Organization [facility] [place] [address] Care Team Providers Name Role Phone Anna Mullen MD Primary Care Provider Encounter Details Date Type Department Care Team Description 09/08/2019 Office Visit Neurology at [facility] [place] Child, Ischemic stroke; [facility] TOLL LINEMAN Stroke-like symptoms; Drive [facility] [place] [address] Neurology Dept [phone] [place], [place] [address] Social History Tobacco Use Types [...] Sign Reading Time Taken Comments Blood Pressure 158/81 09/08/2019 2:40 PM EST Pulse 77 09/08/2019 2:40 PM EST Temperature - - Respiratory Rate - - Oxygen Saturation - - Inhaled Oxygen Concentration - - Weight 93 kg (205 lb) 09/08/2019 2:40 PM EST Height 182.9 cm (6') 09/08/2019 2:40 PM EST reported Body Mass Index 27.8 09/08/2019 2:40 PM EST documented in this encounter Progress Notes Ni Almanzar, TOLL LINEMAN - 09/08/2019 3:00 PM EST [facility] Department [place] [address] t: [phone] / f: [phone] IMP[employer] Improving Post-Acute Care Transitions after Stroke PCP: Anna Mullen MD Richard Hsu (prefers Brant) is a 54 y.o. 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 He was found to have a presumed small right lateral medullary infarction (not seen on MRI), likely secondary to small vessel disease. ?? Per Chart Review: Follow-up Recommendations for Providers: -dual antiplatelet therapy X 21 days -new start low dose statin -follow up with Dr. Melgar and Dr. Martinez in clinic next few weeks -avoid low blood pressure ?? Discharge Diagnoses: Presumed small right lateral medullary infarction secondary to small vessel disease (not seen on MRI) Hospital Course: Richard Hsu is a 53 y.o. male with history of pancreatic transplant, ASCVD, depression, gastroparesis, migraines, hypothyroidism who presented to [facility] for slurred speech and some ataxia, as well as weakness involving the left upper and lower extremities. She was transferred and admitted to the neurology service for further evaluation. ?? Neurological examination on admission was pertinent for dysarthria, dysphagia, mild ptosis of the left eye with slight asymmetry of the pupils, and LLE drift. He had evidence for a remote right medial medullary infarction when he was 11 yoPatient was monitored with frequent checks of vitals and neurological status. Telemetry monitoring showed NSR. Permissive HTN was allowed, with labetalol administered prn for SBP >220. MRI demonstrated no acute infarction. TTE not performed. See detailed reports as below. Most likely etiology of symptoms was lateral medullary infarction, not seen on MRI, likely small vessel disease ?? Pt was on aspirin 81mg daily at time of this event. He was loaded with clopidogrel at OSH and continued on DAPT while undergoing further vascular workup. He will continue on DAPT for 21 days per POINT trial and start low dose statin. On discharge, pt continues with some trouble swallowing but pupillary findings and weakness have resolved and he is back at his baseline. ?? Patient was evaluated by rehabilitation services and deemed appropriate for oupt SLT therapy. Operations & Procedures: NONE ?? Consultations: 1. PT/OT Per 09/02/2019 Signed Telephone Encounter: Melita Sanches RN Registered Nurse Telephone Encounter Signed Encounter Date: 08/30/2019 Call placed to pt at request of Dr Martinez, Dr Martinez has reviewed chart and would like pt to stay on Plavix indefinitely. ?? Pt instructed to continue on Plavix and notified that rx was sent to pharmacy ?? Pt verbalized understanding and will pickup driver the medication and stop the ASA Interval History: Repeat events or new symptoms: None Hospital readmissions/ED visits since discharge: None Residual deficits: Intermittent swallowing difficulty, feeling of fullness in throat, sensation of dry throat when laying in bed at night Ongoing rehab: None. During hospital admission, patient was evaluated by rehabilitation services anddeemed appropriate for outpatient speech language therapy. A referral was placed. Patient has not yet initiated services. Brant presents to neurology clinic alone. He denies new neurologic symptoms or complaints since hospital discharge. He does present his phone to me, with an accompanying log of blood pressure readings as well as another electronic log that outlines other symptoms. Brant was educated to avoid low blood pressure at hospital discharge and denies recent lows. Rather, he reports that his blood pressure has been elevated beyond normal limits. Blood pressure elevation was present prior to his stroke, requiring antihypertensive medication adjustments in February 2019. He denies symptoms associated with elevated blood pressure readings. When discussing symptoms of low blood pressure, Brant does recall an incident of feeling lightheaded, dizzy, and like he was going to pass out when sitting in a warm tub and then upon standing from the tub while at home on day of hospital discharge. Symptoms resolved after sitting back down. He did phone the neurology clinic and was educated that symptoms are consistent with presyncope, to use caution with standing, and to stay hydrated. Brant denies symptom recurrence since that incident. Additionally, Brant recalls an episode around 08/16/2019 at bedtime - his neck started to hurt, then he felt dizzy, lightheaded, and then he experienced a severe headache. Incident duration was about 15 minutes before resolving completely. At the time of incident, Brant checked his blood sugar, which was 105. A similar episode occurred again about 1 week prior to today's office visit - neck painthat traveled to the back of the head, with associated lightheadedness and nausea. Symptom duration was less than 15 minutes before resolving completely, and symptoms have not recurred since that time.Brant was sitting down at the time of most recent incident. He does have a history of migraines and hea daches but states that this presentation was atypical. He has had chronic neck pain, from the back of his neck up toward his head. No history of trauma. No prior diagnosis of cervicogenic headache or cervical spine derangement. Brant denies correlation of symptoms with high or low blood pressure readings. Brant is presently asymptomatic. Brant's chief complaint today relates to his throat and swallowing. He reports a persistent sensation of fullness in front of his throat and states that he will intermittently experience difficulty with swallowing, notably that he has to cut steak into very small pieces in order to eat it. He has no trouble with liquids. He also states that he has difficulty sleeping because he will get a sensation of extremely dry throat that wakes him up at night; this improves when he drinks water. Symptoms were present upon hospital admission and have persisted since discharge. Brant denies history of thyroid nodules or enlargement (does have a history of hypothyroidism) and does not feel like the sensation of throat fullness is external but, rather, in the throat itself. He denies choking or breathing concerns. He denies history of LAI, no snoring. He does have a history of GERD and gastroparesis. Brant recounts to me today that he had a stroke at the age of 11, which was traumatic for him.??Initially, he was completely paralyzed on the left side and had difficulty with sensation on the left as well. He states that it took almost 10 years of physical therapy to manage his deficits: I had to relearn how to walk and talk. ??At the time of the stroke, no cause was identified. However, 5 years later it was noted that it was likely due to diabetes. Brant has since had a pancreatic transplant (08/28/2013). Regarding his history of pancreatic transplant, Brant reports that he recently saw his transplantprovider, Dr. Melgar. There have been no medical management changes. Brant denies other symptoms or concerns today. He denies mental health concerns, no SI/HI. He denies visual deficits since hospital discharge. He does note some left-sided weakness but states that he is fully aware of strengthening exercises to perform in the context of his prior stroke experience and declines PT/OT services at this time. Regarding initiation of SLT services, Brant is amenable to this if it can be coordinated closer to hiswork in the [facility]. Patient Active Problem List Diagnosis Code ??? LBP radiating to right leg M54.5 ??? Diabetes mellitus E11.9 ??? Stroke-like symptoms R29.90 ??? Hypertension I10 ??? Gastroparesis due to DM E11.43, K31.84 ??? Migraine G43.909 ??? Pancreatitis K85.90 ??? Immunosuppression D89.9 ??? Ulnar neuropathy G56.20 ??? Nevus D22.9 [...] Ischemic stroke I63.9 ??? Globus sensation R09.89 Allergies Allergen Reactions ??? Esomeprazole Other reaction(s): Diarrhea ??? Nexium [Esomeprazole Magnesium] Diarrhea Any acid reflux medication causes severe diarrhea ??? Omeprazole Other reaction(s): Diarrhea ??? Prilosec [Omeprazole Magnesium] Diarrhea ??? Reglan [Metoclopramide Hcl] TD ??? Simvastatin Outpatient Medications Marked as Taking for the 09/08/19 encounter (Office Visit) with Yue Almanzar APRN Medication Sig Dispense Refill ??? clopidogrel (PLAVIX) 75 mg Tablet Take [...] by mouth daily. 90 tablet 2 ??? gabapentin (NEURONTIN) 300 mg Capsule Take 3 capsules by mouth nightly. 300 mg in the morning and 900 mg at night. 90 capsule 12 ??? PROGRAF 1 mg Capsule TAKE TWO CAPSULES BY MOUTH in AM and 1 capsule in PM. Pancreas transplant 08/28/2013. ICD code Z94.83 120 capsule 11 ??? mycophenolate (CELLCEPT) 250 mg Capsule Take two capsules by mouth twice a day Pancreas transplant 08/28/2013 Z94.83 360 capsule 3 ??? traZODone (DESYREL) 50 mg Tablet TAKE ONE TABLET BY MOUTH EVERY EVENING 90 tablet 3 ??? lisinopril (PRINIVIL;ZESTRIL) 20 mg Tablet Take 1.5 tablets by mouth 2 times daily. 270 tablet 3 ??? valACYclovir (VALTREX) 500 mg Tablet TAKE [...] needed for Nausea. 15 tablet 0 ??? acetaminophen (TYLENOL) 325 mg tablet Take 2 tablets by mouth every 4 hours as needed (Pain, Fever. if oral temperature greater than 38.5 Centigrade). 30 tablet ??? sildenafil (VIAGRA) 100 mg tablet Take 1 tablet by mouth as needed for Erectile Dysfunction. 90 day supply Dx code :250.60 60 tablet 6 EXAM: Most Recent Vitals: 09/08/19 1440 BP: 158/81 Pulse: 77 General: Patient of apparent stated age, well nourished, well developed, alert, NAD HEENT: Neck supple, no meningismus, no occipital or midline cervical tenderness - decreased range ofmotion to the left and right, no thyromegaly or palpable nodules CV: + S1, S2,??RRR,??no overt murmur Lungs: CTAB symmetric expansion, unlabored breathing Abd: soft, nontender, nondistended, normoactive bowel sounds Ext: no edema, adequate pulses Neuro exam: MSE: alert, oriented to person, place, time, situation, follows simple and complex commands, speechfluent with minimal dysarthria, able to repeat a sentence, names objects CN: PERRL, no nystagmus, EOMI, facial sensation intact, no facial droop or asymmetry, tongue protrudes midline, uvula and palate elevate symmetrically, trap symmetric strength bilaterally UE: ?5/5 R, 4+/5 L ?Arm abduction at shoulder ?5/5 R, 4+/5 L ?Elbow extension ?5/5 R, 4+/5 L ?Elbow flexion ?5/5 R, 4/5 L ?Relief Captain ?LE: ?5/5 R, 4+/5 L ?Hip flexion ?5/5 R, 4+/5 L ?Knee extension ?5/5 R, 4+/5 L ?Knee flexion ?5/5 R, 3/5 L ?Foot dorsiflexion ?5/5 R, 4/5 L ?Foot plantar flexion Normal bulk and tone Reflexes: Not tested Sensation: intact light touch, vibration, proprioception, and temperature diffusely Coordination: intact finger nose finger, no dysmetria, no tremor, difficulty with rapid foot tapping on left - impaired dorsiflexion movement and slowed overall when compared to right, slowed left hand tapping when compared to right, right over left satelliting noted with hand rolling movements Gait: normal stride and armswing, negative Romberg NIH Stroke Scale: (bold applicable choices) - 1.a. Level of consciousness: 0-Alert 1-Not alert, but arousable with minimal stimulation 2-Not alert, requires repeat stimulation to attend 3-Coma 1.b. Ask patient the month and their age: 0-Answers both correctly 1-Answers one correctly 2-Both incorrect 1.c. Ask patient to open and close eyes: 0-Obeys both correctly 1-Obeys one correctly 2-Both incorrect 2. Best gaze (horizontal eye movement): 0-Normal 1-Partial gaze palsy 2-Forced deviation 3. Visual field testin-No visual field loss 1-Partial hemianopia 2-Complete hemianopia 3-Bilateral hemianopia (blind including cortical blindness) 4. Facial paresis (Ask patient to show teeth or raise eyebrows and close eyes tightly): 0-Normal symmetrical movement 1-Minor paralysis (flattened nasolabial fold, asymmetry on smiling) 2-Partial paralysis (total or near paralysis of lower face) 3-Complete paralysis of one or both sides (absence of facial movement in the upper and lower face) 5. Motor function right arm: 0-Normal (extends arm 90 degrees for 10 seconds without drift) 1-Drift 2-Some effort against gravity 3-No effort against gravity 4-No movement UT-Untestable (Joint fused or limb amputated) 5. Motor function- left arm: 0-Normal (extends arm 90 degrees for 10 seconds without drift) 1-Drift 2-Some effort against gravity 3-No effort against gravity (but baseline) 4-No movement UT-Untestable (Joint fused or limb amputated) 6. Motor function right le-Normal (extends leg 30 degrees for 5 seconds without drift) 1-Drift 2-Some effort against gravity 3-No effort against gravity 4-No movement UT-Untestable (Joint fused or limb amputated) 6. Motor function-left le-Normal (extends leg 30 degrees for 5 seconds without drift) 1-Drift 2-Some effort against gravity 3-No effort against gravity 4-No movement UT-Untestable (Joint fused or limb amputated) 7. Limb ataxia: 0-No ataxia 1-Present in one limb 2-Present in two limbs 8. Sensory (Use pinprick to test arms, legs, trunk and face compare side to side): 0-Normal 1-Mild to moderate decrease in sensation 2-Severe to total sensory loss 9. Best language (describe picture, name items, read sentences): 0-No aphasia 1-Mild to moderate aphasia 2-Severe aphasia 3-Mute 10. Dysarthria (read several words): 0-Normal articulation 1-Mild to moderate slurring of words 2-Near unintelligible or unable to speak UT-Intubated or other physical barrier 11. Extinction and inattention: 0-Normal 1-Inattention or extinction to bilateral simultaneous in one of the sensory modalities 2-Severe carolyn-inattention or carolyn-inattention to more than one modality TOTAL SCORE: 3 Modified [place] Scale (MRS) - 0: No symptoms at [...] Panel Lab Results Component Value Date CHLPL 124 08/17/2019 HDL 46 08/17/2019 CHOLHDL 2.7 08/17/2019 TRIG 139 08/17/2019 LDLCHOL 50 08/17/2019 LDLDIRECT 92 08/07/2019 ?? Last 3 Hemoglobin A1Cs Lab Results Component Value Date HA1C 5.4 08/17/2019 HA1C 5.5 08/07/2019 HA1C 5.3 02/14/2019 Clinical Impression and Recommendations: Richard Hsu (prefers Brant) is a 54 y.o. 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 He is evaluated today as post-discharge hospital check for recent presumed small right lateral medullary infarction (not seen on MRI), likely secondary to small vessel disease. Brant denies new or worsening symptoms since hospital discharge. His main complaint today is persistent dysphagia and globus sensation. His symptoms are atypical, but may represent an underlying deficit related to the vagus nerve. This was agreed upon in further case discussion with Dr. Martinez following today's clinic visit. Brant has not yet initiated speech language therapy, but is amenable to it after further discussion today. Neurological exam today reveals minimal dysarthria as well as left upperand lower extremity weakness and associated coordination deficits when compared to the right. Brant states today during physical exam that these findings are his baseline functional status since prior stroke at 11 years old. He reports that he regularly performs strengthening exercises at home, is comfortable with performing these activities independently, and declines referral to PT/OT at this time. Regarding Brant's neck pain, headache, and associated symptoms - with incidents x 2 since hospital discharge, this appears to be chronic. In reviewing Brant's chart and hospital course more closely, symptoms were present for months prior to his recent presumed stroke. CT head and CTA performed at outside hospital prior to Brant's transfer to [facility] were unrevealing and reviewed by our neurologist attending, Dr. Martinez. Notably, no dissection was present. It is unlikely that these aforementioned incidents are related to his recent presumed stroke. I have requested that Brant continue to monitor these symptoms and follow up with me or his PCP if they recur. He is in agreement with this plan, declines referral to headache clinic at this time. Brant's blood pressure has been elevated beyond normal limits. He plans to follow up with his PCP for further medication adjustments and future monitoring. In the interim, he will continue to monitor hisblood pressure at home and will take antihypertensive medications daily as prescribed. Through shared decision making with Brant, the following plan was agreed upon: # Presumed small right lateral medullary infarction (not seen on MRI), likely secondary to small vessel disease - - No medication changes were made today - Continue with statin and Plavix for secondary stroke prevention - Aspirin was discontinued prior to today's clinic visit, patient previously advised by Dr. Martinezto continue with Plavix indefinitely - Per hospital recommendations at time of discharge, continue dysphagia soft diet with thin liquids - Initiate outpatient speech language therapy: our neurology clinic RN, Claire Sanches, will assist in coordinating services - Follow up with PCP regarding elevated blood pressure readings -- Brant reports today that his Lisinopril dosing was increased to 30mg twice daily in February 2019. As this is higher than the typical maximum daily dose of 40mg and I am unfamiliar with a 60mg daily dosing regimen, I will defer to Brant's PCP on further management. -- I have advised Brant to continue with regular blood pressure monitoring, assessing not only for hypertension, but also lows. - Continue to avoid hypotension - Continue to partner with PCP in management of modifiable secondary stroke risk factors - Continue with regular office visits with Dr. Melgar - visit frequency at provider's discretion - Return to vascular neurology clinic in 3 months, or sooner as needed Modifiable Risk Factors in Secondary Stroke Prevention (general guide) Risk Factor Treatment Goals Hypertension Patients with hypertension: <140/90 mm Hg; 10-mm Hg reduction in systolic BP and 5-mm Hg reduction in diastolic BP from baseline Patients with diabetes mellitus or renal disease: <130/80 mm Hg; 10-mm Hg reduction in systolic BP and 5-mm Hg reduction in diastolic BP from baseline Patients without hypertension: <120/80 mm Hg; 10-mm Hg reduction in systolic BP and 5-mm Hg reduction in diastolic BP from baseline Dyslipidemia Atherosclerotic stroke or TIA: low-density lipoprotein (LDL) cholesterol level <70 mg/dl or 50% reduction in LDL cholesterol level from baseline Nonatherosclerotic stroke or TIA: per National Cholesterol Education Program (NCEP) Adult Treatment Panel III (ATP-III) goals Diabetes Mellitus HgA1c level <7% Cigarette Smoking Complete cessation Alcohol Consumption Men: two or fewer drinks per day Non woman: one or fewer drinks per day Physical Activity At least 30 minutes of moderate intensity physical exercise 1- 3 times per week Diet Low-fat, low-sodium, and Mediterranean or Dietary Approaches to Stop Hypertension diets (diabetic diet when applicable) Obesity Goal body mass index of 18.5-25 kg/m2 Education provided today covered: patient-specific vascular risk factors, cause of the presumed stroke, prognosis and risk of recurrence, medications for stroke prevention, potential side effects of these medications, management of modifiable risk factors including heart healthy diet, increased physical activity, maintaining smoke free status, moderation in alcohol, weight management, blood pressure,glucose and cholesterol control, warning signs of stroke, plan to contact EMS in event of recurrent symptoms. Results of diagnostic studies were reviewed. Compliance with treatment and regular follow-up with PCP as well as initiating care with SLT was emphasized. >30 minutes of this 40 minute visit was devoted to patient education and counseling as detailed above. documented in this encounter Plan of Treatment Not on filedocumented as of this encounter Visit Diagnoses Diagnosis Ischemic stroke Stroke-like symptoms Other symptoms involving nervous and mus culoskeletal systems Essential hypertension Unspecified essential hypertension documented in this encounter Care Teams Financial Sales Associate Relationship Specialty Start Date End Date Anna Mullen MD PCP - General 12/03/10 [address] [place] [address] documented as of this encounter
--- OUTSIDE RECORDS SUMMARY | 2022-03-13 18:25 | XMS_ITS | Encounter Summary ---
:1965 Author Organization [facility] [place] [address] Care Team Providers Name Role Phone Anna Mullen MD Primary Care Provider Encounter Details Date Type Department Care Team Description 02/09/2020 Telephone Solid [place]plant [place] [address] Social History Tobacco Use Types Packs/Day Years Used Date Never Smoker Smokeless Tobacco: Never Used Alcohol Use Standard Drinks/Week Comments No 0 (1 standard drink = 0.6 oz pure alcoho l) history of abuse, stopped 1996 Sex Assigned at Date Recorded Male 05/29/2021 11:28 PM EDT documented as of this encounter Miscellaneous Notes Telephone Encounter - Zoe Rosario RN - 02/09/2020 3:50 PM EDT I reviewed pt's labs and CXR with Dr. Melgar. Per Dr. Melgar 1. Florinef 0.1 mg daily 2. Prednisone taper 06-05-57-30-20-10 stop 3. Repeat labs in a week 4. If respiratory symptoms return after prednisone taper a referral will be sent for a Pulmonary consult I left a message for the pt to return my call to confirm the above. I sent prescriptions to his local pharmacy and also sent the above information to the pt in a [employer] message. documented in this encounter Plan of Treatment Not on filedocumented as of this encounter Visit Diagnoses Not on filedocumented in this encounter Care Teams Agricultural Technical Officer Relationship Specialty Start Date End Date Anna Mullen MD PCP - General 12/03/10 [address] [place] [address] documented as of this encounter
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
--- OUTSIDE RECORDS SUMMARY | 2022-03-13 18:26 | XMS_ITS | Encounter Summary ---
:1965 Author Organization [facility] [place] [address] Care Team Providers Name Role Phone Anna Mullen MD Primary Care Provider Reason for Referral Diagnostic Test (Routine) - Closed Specialty Diagnoses / Procedures Referred By Contact Refer red To Contact Radiology Diagnoses Chest pain, unspecified type Geoffrey Cassidy MD [facility] Rad Nuclear Med Procedures NM Pharmacologic Stress Myocardial Perfusion [facility] CARDIOLOGY DEPT. [address] [address] Fax: Referral ID Status Reason Start Date Expiration Date Visits V isits Requested Authorized [id number] Closed Specialty 01/11/2019 03/11/2019 1 1 Service Requested Reason for Visit Diagnostic Test (Routine) - Closed Specialty Diagnoses / Procedures Referred By Contact Refer red To Contact Radiology Diagnoses Chest pain, unspecified type Geoffrey Cassidy MD [facility] Rad Nuclear Med Procedures NM Pharmacologic Stress Myocardial Perfusion [facility] [address] [facility] [place] [address] [place] [address] Fax: Referral ID Status Reason Start Date Expiration Date Visits V isits Requested Authorized [id number] Closed Specialty 01/11/2019 03/11/2019 1 1 Service Requested Encounter Details Date Type Department Care Team Description 01/13/2019 Hospital Encounter Nuclear Medicine at [place], Geoffrey Chest pain, Tiffani Melendrez MD unspecified type One [facility] [address] [place], [place] CARDIOLOGY DEPT. [address] [place], [place] [phone] Social History Tobacco Use Types Packs/Day Years [...] Sig Dispensed Refills Start Date End Date valACYclovir (VALTREX) TAKE ONE TABLET BY 30 [...] times daily. Release (E.C.) psyllium 3.5 gram Take 1 packet by 30 each 0 09/01/2015 Powder in Packet mouth daily. ondansetron (ZOFRAN) 8 Take 1 tablet by 15 tablet 0 015 mg Tablet mouth every 8 hours as needed for Nausea. sildenafil (VIAGRA) 100 Take 1 tablet by mouth as ne eded for Erectile Dysfunction. 90 day supply 60 tablet 6 09/14/2012 mg tablet Dx code :250.60 CELLCEPT 250 mg Capsule TAKE TWO CAPSULES BY 360 capsule 2 0 11/22/2018 06/01/2019 MOUTH TWICE A DAY cholecalciferol, Take 1 capsule by 90 capsule 3 08/02/2018 1 10/03/2018 Vitamin D3, 2,000 unit mouth daily. Capsule traZODone (DESYREL) 50 TAKE ONE TABLET BY 90 tablet 3 05/1205/04/2019 mg Tablet MOUTH EVERY EVENING PROGRAF 1 mg Capsule Take 2 mg twice 120 capsule 11 8 02/10/2019 daily. Pancreas transplant 08/28/2013. ICD code Z94.83 guaiFENesin Take 10 mLs by mouth 120 mL 0 08/03/201703/2019 (ROBITUSSIN) 20 mg/mL every 4 hours as Liquid needed for Cough. lisinopril Take 1.5 tablets by 90 tablet 3 08/03/201702/17 (PRINIVIL;ZESTRIL) 20 mouth daily. mg Tablet gabapentin (NEURONTIN) Take 900 mg by mouth 0 08/07/2019 300 mg Capsule nightly. 100 mg in the morning and 900 mg at night. aspirin 81 mg Tablet, Take 81 mg by mouth 0 08/30/2019 Chewable daily. acetaminophen (TYLENOL) Take 2 tablets by 30 tablet 0 09/0205/22/2020 325 mg tablet mouth every 4 hours as needed (Pain, Fever. if oral temperature greater than 38.5 Centigrade). documented as of this encounter Plan of Treatment Not on filedocumented as of this encounter Procedures Procedure Name Priority Date/Time Associated Comments Diagnosis NM PHARMACOLOGIC Routine 01/13/2019 8:30 AM Chest pain, Resul ts for this STRESS AND REST EDT unspecified type procedur e are in MYOCARDIAL PERFUSION the res ults section. documented in this encounter Results NM Pharmacologic Stress Myocardial Perfusion (01/13/2019 8:30 AM EDT) Anatomical Region Laterality Modality Nuclear Medicine Specimen (Source) Anatomical Location Collection Method / Collectio n Time Received Time / Laterality Volume Impressions 01/13/2019 11:58 AM EDT No ischemia or scar. ?? Left ventricular function is normal. Preliminary report signed by: Leticia Putnam at 01/13/2019 11:22 AM I have personally reviewed the image(s) and the residents interpretation and agree with the findings, Saleem Michelle at 01/13/2019 11:58 AM Thank you for letting us participate in the care of this patient. For questions regarding this report, please contact e number below. ? Narrative 01/13/2019 11:58 AM EDT EXAMINATION: NM PHARMACOLOGIC STRESS MYOCARDIAL PERFUSION, NM PHARMACOLOGIC STRESS CT COMPONENT CLINICAL HISTORY: Atypical chest pain TECHNIQUE: During rest, 8.5 mCi of techn etium-99m sestamibi was administered intravenously. Approximately 20 minutes later, SPECT images of the heart were obtained with reconstruction in the shor t, vertical long and horizontal long axis. The patient then received regadenoson in travenously at a dose of 0.4 mg. 20 seconds later, 26.1 mCi of technetium-99 m sestamibi was administered intravenously. Images of the heart were then again obtained with SPECT reconstruction. A low-dose CT scan was acquired for the purpose of attenuation correction COMPARISON: None FINDINGS: No fixed or reversible perfusion defects are present. Functional analysis: Myocardial function: There is normal wal l thickening and wall motion. Left ventricular ejection fraction: 61 % (normal greater than than 50%). CT findings: Coronary artery calcifications consisten t with atherosclerotic disease. Procedure Note Saleem Michelle MD - 01/13/2019 EXAMINATION: NM PHARMACOLOGIC STRESS ENRIQUE CARDIAL PERFUSION, NM PHARMACOLOGIC STRESS CT COMPONENT CLINICAL HISTORY: Atypical chest pain TECHNIQUE: During rest, 8.5 mCi of techn etium-99m sestamibi was administered intravenously. Approximately 20 minutes later, SPECT images of the heart were obtained with reconstruction in the shor t, vertical long and horizontal long axis. The patient then received regadenoson in travenously at a dose of 0.4 mg. 20 seconds later, 26.1 mCi of technetium-99 m sestamibi was administered intravenously. Images of the heart were then again obtained with SPECT reconstruction. A low-dose CT scan was acquired for the purpose of attenuation correction COMPARISON: None FINDINGS: No fixed or reversible perfusion defects are present. Functional analysis: Myocardial function: There is normal wal l thickening and wall motion. Left ventricular ejection fraction: 61 % (normal greater than than 50%). CT findings: Coronary artery calcifications consisten t with atherosclerotic disease. IMPRESSION No ischemia or scar. Left ventricular function is normal. Preliminary report signed by: Leticia Putnam at 01/13/2019 11:22 AM I have personally reviewed the image(s) and the residents interpretation and agree with the findings, Saleem Michelle at 01/13/2019 11:58 AM Thank you for letting us participate in the care of this patient. For questions regarding this report, please contact e number below. Geoffrey Cassidy MD IMG NM ORDERABLES documented in this encounter Visit Diagnoses Diagnosis Chest pain, unspecified type documented in this encounter Care Teams Commissioned Fire Officer Relationship Specialty Start Date End Date Anna Mullen MD PCP - General 12/03/10 [address] [place] [address] documented as of this encounter
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
--- OUTSIDE RECORDS SUMMARY | 2022-03-13 18:26 | XMS_ITS | Encounter Summary ---
:1965 [place] [address] Care Team Providers Name Role Phone Anna Mullen MD Primary Care Provider Encounter Details Date Type Department Care Team Description 08/06/2019 Ancillary [facility] [place] [address] NEUROLOGY DEPT. [phone] [place], [place] [address] (Wo rk) Social History Tobacco [...] Associated Diagnosis Comme nts FILM LIBRARY Routine 08/06/2019 7:56 AM Results f or this STORAGE ONLY CT EST procedure ar e in HEAD AND SPINE the results section. documented in this encounter Results Film Library- Storage Only CT Head And Spine (08/06/2019 7:56 AM EST) Specimen (Source) Anatomical Location Collection Method / Collectio n Time Received Time / Laterality Volume Narrative RAD - 08/06/2019 7:56 AM EST This exam is auto-finalizing. It's purpo se is for storage only. Christian Cardoza MD IMG FILM LIBRARY ORDERABLES Performing Organization Address City/State/ZIP Code Phon e Number RAD [place], [place] documented in this encounter Visit Diagnoses Not on filedocumented in this encounter Care Teams Hand Booked Folder And Stitcher Relationship Specialty Start Date End Date Anna Mullen MD PCP - General 12/03/10 [address] [place] [address] documented as of this encounter
--- OUTSIDE RECORDS SUMMARY | 2022-03-13 18:26 | XMS_ITS | Encounter Summary ---
:1965 Author Organization [facility] [place] [address] Care Team Providers Name Role Phone Anna Mullen MD Primary Care Provider Reason for Visit Reason Comments Medication Refill Encounter Details Date Type Department Care Team Description 05/04/2019 Refill Solid Organ Transplant at Eriberto Emery MD [facility] [place] [address] [place] [address] [phone] (Wo rk) Social History Tobacco Use Types [...] filedocumented in this encounter Care Teams Clinical Neuropsychologist Relationship Specialty Start Date End Date Anna Mullen MD PCP - General 12/03/10 [address] [place], [place] [address] documented as of this encounter
--- OUTSIDE RECORDS SUMMARY | 2022-03-13 18:26 | XMS_ITS | Encounter Summary ---
:1965 Author Organization [facility] [address] Care Team Providers Name Role Phone Anna Mullen MD Primary Care Provider Reason for Visit Reason Comments Medication Refill Encounter Details Date Type Department Care Team Description 02/10/2019 Refill [facility] Trans[facility] at [facility] [place] [address] [place] [address] [phone] (Wo rk) Social History Tobacco Use Types [...] on filedocumented in this encounter Care Teams General Agent Relationship Specialty Start Date End Date Anna Mullen MD PCP - General 12/03/10 [address] [place], [place] [address] documented as of this encounter
--- OUTSIDE RECORDS SUMMARY | 2022-03-13 18:26 | XMS_ITS | Encounter Summary ---
:1965 Author Organization [facility] [place] [address] Care Team Providers Name Role Phone Anna Mullen MD Primary Care Provider Reason for Referral Speech Therapy (Routine) - Specialty Diagnoses / Procedures Referred By Contact Refer red To Contact Diagnoses Cerebrovascular accident (CVA), unspecified mechanism Kaitlyn Baltazar APRN [facility] [place] [address] Referral ID Status Reason Start Date Expiration Date Visits V isits Requested Authorized [id number] Evaluate and 08/07/2019 02/03/2020 12 12 Treat Reason for Visit Reason Comments Transient Ischemic Attack Auth/Cert Specialty Diagnoses / Procedures Referred By Contact Refer red To Contact Diagnoses TIA (transient ischemic attack) TIA Procedures EMERGENCY OBSVO Referral ID Status Reason Start Date Expiration Date Visits Requ ested Visits Authorized [id number] 1 1 Encounter Details Date Type Department Care Team Description 08/06/2019 - Emergency 5 Jameel Clay Jr., MD [address] [place] [address] [place] [address] 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 [address] TIA (transient ischemic attack); Hospital Cerebrovascular accident (CV A), unspecified mechanism; [facility] Stroke-[place] [address] Social History Tobacco Use Types Packs/Day Years Used Date Never Smoker Smokeless Tobacco: Never Used Alcohol Use Standard Drinks/Week Comments No 0 (1 standard drink = 0.6 oz pure alcoho l) history of abuse, stopped 1996 Sex Assigned at Date Recorded Male 05/29/2021 11:28 PM EDT documented as of this encounter Last Filed Vital Signs Vital Sign Reading Time Taken Comments Blood Pressure 149/84 08/07/2019 8:10 AM EST Pulse 77 08/07/2019 8:10 AM EST Temperature 36.4 ??C (97.5 ??F) 08/07/2019 8:10 AM EST Respiratory Rate 15 08/07/2019 8:10 AM EST Oxygen Saturation 99% 08/07/2019 8:10 AM EST Inhaled Oxygen Concentration - - Weight 93 kg (205 lb) 08/06/2019 10:07 AM EST Height 182.9 cm (6') 08/06/2019 10:07 AM EST Body Mass Index 27.8 08/06/2019 10:07 AM EST documented in this encounter Discharge Summaries Kaitlyn Baltazar, PROGRAM PRODUCTION SPECIALIST - 08/07/2019 10:01 AM EST Images from the original note were not included. Discharge Summary Patient Name: Richard Hsu Patient Age: 53 y.o. Language: Afghan Race: White Ethnicity: Not nor Admit date: 08/06/2019 Discharge date and time: 08/07/1910:00 AM Attending Physician: Geoffrey Martinez MD Discharge Physician: MD Juan Follow-up Recommendations for Providers: -dual antiplatelet therapy X 21 days -new start low dose statin -follow up with Dr. Melgar and Dr. Martinez in clinic next few weeks -avoid low blood pressure Inpatient Provider Contact Information: For questions regarding this document or issues related to this hospitalization on the Neurology Service, please contact the author(s) of this discharge summary through the [facility] Rebar Bender . 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 TIA (transient ischemic attack) ??? Stroke-like symptoms Resolved Hospital Problems No resolved problems to display. Past medical History: Past Medical History: Diagnosis Date ??? [...] of heart aortic valve ??? Severe headache Active Non Hospital Problems: Active Non-Hospital Problems Diagnosis ??? Diabetes mellitus ??? Gastroparesis due to DM ??? Hypertension secondary to other renal disorders ??? Other chest pain ??? Coxsackie virus infection ??? Fever ??? Prophylactic immunotherapy ??? 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 ??? Depression ??? Aftercare following organ transplant ??? Encounter for long-term (current) use of other medications ??? Dehydration ??? Nevus ??? Vitiligo ??? Ulnar neuropathy ??? Pancreatitis ??? Immunosuppression ??? Hypertension ??? Migraine ??? LBP radiating to right leg History of Presentation: Onset of symptoms (if witnessed) or time of symptom discovery: Last known well: 11 pm last evening prior to bed Stroke Alert Activated: N/A ?? CC: New increased weakness left lower extremity as well as difficulty swallowing/throat closing ?? HPI: Richard Hsu is a 53 y.o. with history of pancreatic transplant, ASCVD, depression, gastroparesis, migraines, hypothyroidism who presented to [facility] for slurred speech and some ataxia, as well as weakness involving the left upper and lower extremities. ?? Patient notes that he was in her normal state of health last evening prior to going to sleep. He woke up 2-3 times to use the restroom overnight. However on the first trip to the bathroom he noted thathis left leg was dragging way more than he normally does (notes residual minimal weakness from his stroke at the age of 11 which affected the left side of his body). On a subsequent trip to the bathroomhe noted he had to hold onto the wall to make it to the bathroom safely. However on the third trip, when he was back in bed his throat closed up and he had difficulty swallowing. He alerted his who also noted a change in his demeanor. He also notes that he was lightheaded at that time. EMS was called at that time. He notes that he still had the difficulty with swallowing when EMS had arrived. Hewas given Benadryl and epinephrine by EMS. He notes no introduction of new food, clothing, detergent, recent travel, bug bite, or any cough or cold symptoms prior to this event. ?? At the outside hospital patient obtain a CT head and CT angiogram of the carotids and hopland of Elaine which were unrevealing. [facility] was called for further phone consultation and it was recommended thatpatient be loaded with clopidogrel (as part of the point trial) and transferred to [facility], CDU, to [facility] plete stroke work-up. ?? Of note, patient notes that he had a stroke at the age of 11. Initially he was completely paralyzed on the left side and had difficulty with sensation on the left. At the time of the stroke no cause wasidentified. However, 5 years later it was noted that it was likely due to diabetes. He notes he has been on a baby aspirin since that time and has not had any further events resembling TIAs or strokes.He does not believe that he has had any heart palpitations or abnormal rhythms of his heart. He believes that he is on a cholesterol-lowering medication but I do not see one in his chart or in sure scripts. ?? He also notes some neck pain over the last 3 months. He notes that the neck pain has been getting worse and has been creeping from the back of his neck up towards his head. He notes a history of migraines and headaches but denies headache or migraine with this current presentation. He also notes some lower back pain which he attributes to his scoliosis. ?? Patient remains on Prograf and CellCept due to his pancreatic transplant. ?? Recent animal bites? ?? Labs at outside hospital: WBC: 6.3 Hemoglobin: 14.8 Hematocrit: 43.2 Platelet: 263 Sodium: 139 Potassium: 3.8 Chloride: 101 Carbon dioxide: 26.9 Anion gap: 11.1 BUN: 17 Creatinine: 1.12 Calcium: 8.9 Total bilirubin: 0.6 AST: 25 ALT: 33 Alkaline phosphatase: 119 Troponin: Negative Total protein: 7.6 Albumin: 4.0 TSH: 0.72 Physical Exam at Admission: Vitals: Temp: [36.8 ??C (98.2 ??F)] Heart Rate: [68] Resp: [13] BP: (139)/(83) SpO2: [100 %] Heart Rate from SpO2: [67 bpm] Gen: Patient of apparent stated age, well nourished, well developed, awake, alert, NAD HEENT: Supple, no meningismus, no occipital or midline cervical tenderness; decreased range of motion to the left and right CV: + S1, S2, RRR, no overt murmur Resp: CTA B/L with good respiratory effort Abd: +normoactive bowel sounds, soft, nontender, nondistended Ext: No edema. No bony deformity Neuro Exam: MS: AAOx4, clear language, minimal dysarthria, follows commands appropriately CN: Left pupil 4 mm with right pupil 2 mm with both being reactive to light (no overt change in darker lighting), EOMI although at times patient appeared to have mild exotropia of left eye, visual greco full; mild ptosis on left eye Facial sensation intact, no facial asymmetry Hearing intact to voice Palate elevates symmetrically, tongue protrudes midline SCM and trap strength intact Motor: Normal bulk and tone. UE: 5/5 R, 4+/5 L Arm abduction at shoulder 5/5 R, 4+/5 L Elbow extension 5/5 R, 4+/5 L Elbow flexion 5/5 R, 4/5 L Architectural Intern LE: 5/5 R, 4+/5 L Hip flexion 5/5 R, 4+/5 L Knee extension 5/5 R, 4+/5 L Knee flexion 5/5 R, 3/5 L Foot dorsiflexion 5/5 R, 4/5 L Foot plantar flexion Sensation: Intact to light touch throughout Reflexes: DTRs 2+ R, 3+ L Biceps 2+ R, 3+ L Brachioradialis 2+ R, 2+ L Triceps 2+ R, 3+ L Patellar Trace + R, trace + L Achilles tendon Toes - R down, L down Coordination: Finger to nose intact, no dysmetria but slow bilaterally Rapid alternating movements & finger tapping smooth and symmetric Heel-wolf intact No tremor Gait: Not assessed ?? NIH Stroke Scale: (bold applicable choices) NIH Stroke Scale at Initial Evaluation: ?? 1.a. Level of consciousness: 0-Alert 1-Not alert, [...] or carolyn-inattention to more than one modality ?? TOTAL SCORE: 2 Hospital Course:: Richard Hsu is a 53 y.o. male with history of pancreatic transplant, ASCVD, depression, gastroparesis, migraines, hypothyroidism who presented to [facility] for slurred speech and some ataxia, as well as weakness involving the left upper and lower extremities. She was transferred and admitted to the neurology service for further evaluation. Neurological examination on admission was pertinent for [...] seen on MRI, likely small vessel disease Pt was on aspirin 81mg daily at [...] and he is back at his baseline. Patient was evaluated by rehabilitation services and deemed appropriate for oupt SLT therapy. Operations & Procedures: NONE Consultations: 1. PT/OT Diagnostic Tests & Neuroimaging: Date Study Results 08/06 ECG NSR , HR [address] Head 08/07/19 MRI BRAIN Examination is marred by patient motion. No intracranial masses, mass effect or extra-axial collections. Ventricles are normal size and configuration. Midline structures are unremarkable. No diffusion-weighted abnormalities. No significant small vessel ischemic disease. Paranasal sinuses are clear. Proximal intracranial flow voids are unremarkable. ?? IMPRESSION No acute infarctions. Labs: Lipid Panel Lab Results Component Value Date CHLPL 138 08/07/2019 HDL 36 08/07/2019 CHOLHDL 3.8 08/07/2019 TRIG 121 08/07/2019 LDLCHOL 80 08/02/2018 LDLDIRECT 92 08/07/2019 Lab Results Component Value Date HA1C 5.5 08/07/2019 Last 3 wbc, hgb, hct plt Recent Labs 08/07/19 0654 02/14/19 0903 WBC 6.5 8.3 HGB 14.0 14.2 HCT 41.5 42.3 PLATELET 210 232 Last 3 Lytes Recent Labs 08/07/19 0654 02/14/19 0903 NA 138 133* K 4.3 4.7 CL 104 99 CO2 22 26 BUN 10 14 CREATININE 0.93 0.98 Last 3 LFTs Recent Labs 08/07/19 0654 02/14/19 0903 AST 23 30 ALT 20 31 ALKPHOS 92 105 BILITOT 1.3 1.1 BILIDIR 0.2 -- Pending Studies and Lab Data: The patient will need the following 2 tests completed on: 08/06/2019 1. Urinalysis with reflex Culture 2. Sedimentation rate Diagnosis: Authorizing Provider: Jameel Garcia Jr., MD, Lance Saab MD Vital Signs at Discharge: BP: 149/84, Heart Rate: 73, Temp: 36.2 ??C (97.2 ??F), Resp: 15, BMI (Calculated): 27.8 Height: 182.9 cm (6') (08/06/19 1007) Weight: 93 kg (205 lb) (08/06/19 1007) Functional and Cognitive Status: No cognitive impairment, back at baseline functional status aside from ongoing dysphagia. Continue dysphagia soft diet with thin liquids and outpt speech therapy. Physical Exam at Discharge: Gen: Patient of apparent stated age, well nourished, well developed, awake, alert, NAD HEENT: Supple, no meningismus, no occipital or midline cervical tenderness; decreased range of motion to the left and right CV: + S1, S2, RRR, no overt murmur Resp: CTA B/L with good respiratory effort Abd: +normoactive bowel sounds, soft, nontender, nondistended Ext: No edema. No bony deformity Neuro Exam: MS: AAOx4, clear language, minimal dysarthria, follows commands appropriately CN: Left pupil 4 mm with right pupil 2 mm with both being reactive to light (no overt change in darker lighting), EOMI although at times patient appeared to have mild exotropia of left eye, visual greco full; mild ptosis on left eye Facial sensation intact, no facial asymmetry Hearing intact to voice Palate elevates symmetrically, tongue protrudes midline SCM and trap strength intact Motor: Normal bulk and tone. UE: 5/5 R, 4+/5 L Arm abduction at shoulder 5/5 R, 4+/5 L Elbow extension 5/5 R, 4+/5 L Elbow flexion 5/5 R, 4/5 L Architectural Intern LE: 5/5 R, 4+/5 L Hip flexion 5/5 R, 4+/5 L Knee extension 5/5 R, 4+/5 L Knee flexion 5/5 R, 3/5 L Foot dorsiflexion 5/5 R, 4/5 L Foot plantar flexion Sensation: Intact to light touch throughout Reflexes: DTRs 2+ R, 3+ L Biceps 2+ R, 3+ L Brachioradialis 2+ R, 2+ L Triceps 2+ R, 3+ L Patellar Trace + R, trace + L Achilles tendon Toes - R down, L down Coordination: Finger to nose intact, no dysmetria but slow bilaterally Rapid alternating movements & finger tapping smooth and symmetric Heel-wolf intact No tremor Gait: Not assessed Discharge Conditions/Prognosis: Stable Discharge to: Home Updated Allergies/ADRs: Allergies Allergen Reactions ??? Nexium [Esomeprazole Magnesium] Diarrhea Any acid reflux medication causes severe diarrhea ??? Prilosec [Omeprazole Magnesium] Diarrhea ??? Reglan [Metoclopramide Hcl] TD ??? Simvastatin Immunizations Given this Hospitalization: Immunization History Administered Date(s) Administered ??? Influenza PF, Split 05/31/2014, 05/19/2016 ??? Influenza Vaccine w/Preservative, Split 05/22/2012 ??? Influenza Vaccine, Whole 06/11/2009 ??? Pneumococcal Conjugate (13 Valent) 02/22/2016 ??? Pneumococcal Polyvalent 23 08/31/2003, 05/09/2009, 06/14/2014 ??? Tdap Vaccine 03/05/2011 Discharge Medications: Your Medications New Medications Dose Details atorvastatin 10 mg Tab Commonly known as: LIPITOR Take 1 tablet by mouth daily. 10 mg Quantity: 90 tablet Refills: 2 clopidogrel 75 mg Tab Commonly known as: PLAVIX Take 1 tablet by mouth daily. Start taking on: August 08, 2019 75 mg Quantity: 21 tablet Refills: 0 Continued medications with new dosing Dose Details gabapentin 300 mg Cap Commonly known as: NEURONTIN Take 3 capsules by mouth nightly. 300 mg in the morning and 900 mg at night. What changed: additional instructions 900 mg Quantity: 90 capsule Refills: 12 Prograf 1 mg Cap TAKE TWO CAPSULES BY MOUTH in AM and 1 capsule in PM. Pancreas transplant 08/28/2013. ICD code Z94.83 Generic drug: tacrolimus What changed: additional instructions Quantity: 120 capsule Refills: 11 Continued medications, unchanged Dose Details acetaminophen 325 mg Tab Commonly known as: TYLENOL Take 2 tablets by mouth every 4 hours as needed (Pain, Fever. if oral temperature greater than 38.5 Centigrade). 650 mg Quantity: 30 tablet Refills: 0 aspirin 81 mg Chew Take 81 mg by mouth daily. 81 mg Refills: 0 fexofenadine 60 mg Tab Commonly known as: BECKY Take 60 mg by mouth daily. 60 mg Refills: 0 levothyroxine 150 mcg Tab Commonly known as: SYNTHROID Take 150 mcg by mouth daily. 150 mcg Refills: 0 lisinopril 20 mg Tab Commonly known as: PRINIVIL;ZESTRIL Take 1.5 tablets by mouth 2 times daily. 30 mg Quantity: 270 tablet Refills: 3 Magnesium Gluconate 27 mg magnesium (500 mg) Tab Commonly known as: Mag-G Take 1 tablet by mouth daily. 1 tablet Quantity: 30 tablet Refills: 11 multivitamin Cap Take 1 capsule by mouth daily. 1 capsule Refills: 0 mycophenolate 250 mg Cap Commonly known as: CELLCEPT Take two capsules by mouth twice a day Pancreas transplant 08/28/2013 Z94.83 Quantity: 360 capsule Refills: 3 ondansetron 8 mg Tab Commonly known as: ZOFRAN Take 1 tablet by mouth every 8 hours as needed for Nausea. 8 mg Quantity: 15 tablet Refills: 0 pantoprazole 40 mg Tbec Commonly known as: PROTONIX Take 40 mg by mouth 2 times daily. 40 mg Refills: 0 psyllium Commonly known as: Aspartame Take 1 packet by mouth daily. 1 packet Quantity: 30 each Refills: 0 sildenafil 100 mg Tab Commonly known as: Viagra Take 1 tablet by mouth as needed for Erectile Dysfunction. 90 day supply Dx code :250.60 100 mg Quantity: 60 tablet Refills: 6 traZODone 50 mg Tab Commonly known as: DESYREL TAKE ONE TABLET BY MOUTH EVERY EVENING Quantity: 90 tablet Refills: 3 valACYclovir 500 mg Tab Commonly known as: VALTREX TAKE ONE TABLET BY MOUTH THREE TIMES A DAY Quantity: 30 tablet Refills: 3 STOPPED Medications guaiFENesin 20 mg/mL Liqd Commonly known as: Robitussin Smoking Status at Discharge: Social History Tobacco Use Smoking Status Never Smoker SECONDARY STROKE PREVENTION: Preventative measure Antithrombotic agent for stroke prevention (aspirin,clopidogrel, ticagrelor, therapeutic anticoagulation etc...) was Initiated. If documented history of atrial fibrillation/flutter, anticoagulation therapy was not prescribed dueto no afib for stroke prevention. Cholesterol-lowering medication (including statins) was prescribed Smoking cessation: If patient smoked within the past year, smoking cessation counseling was not performed due to NONsmoker. Nicotine supplements were NA. Education: Stroke information packet provided to patient and/or family, which included personal modifiable risk factors for stroke, stroke warning signs and symptoms, how to activate EMS for stroke, and need for follow-up after discharge was performed. Modified Rufino Score (MRS) on discharge Score Description 0 No symptoms at all 1 No significant disability despite symptoms; able to carry out all usual duties and activities 2 Slight disability; unable to carry out all previous activities, but able to look after own affairswithout assistance 3 Moderate disability; requiring some help, but able to walk without assistance 4 Moderately severe disability; unable to walk without assistance 5 Severe disability; bedridden, incontinent and requiring constant nursing care and attention 6 Total Score: 2 NIH Stroke Scale at Discharge Evaluation: 1.a. Level of consciousness: 0-Alert 1-Not alert, [...] gravity 3-No effort against gravity 4-No movement 9-Untestable (Joint fused or limb amputated) 5. Motor function- left arm: 0-Normal (extends arm 90 degrees for 10 seconds without drift) 1-Drift 2-Some effort against gravity 3-No effort against gravity 4-No movement 9-Untestable (Joint fused or limb amputated) 6. Motor function right le-Normal (extends leg 30 degrees for 5 seconds without drift) 1-Drift 2-Some effort against gravity 3-No effort against gravity 4-No movement 9-Untestable (Joint fused or limb amputated) 6. Motor function-left le-Normal (extends leg 30 degrees for 5 seconds without drift) 1-Drift 2-Some effort against gravity 3-No effort against gravity 4-No movement 9-Untestable (Joint fused or limb amputated) 7. Limb [...] words 2-Near unintelligible or unable to speak 9-Intubated or other physical barrier 11. Extinction and inattention: 0-Normal 1-Inattention or extinction to bilateral simultaneous in one of the sensory modalities 2-Severe carolyn-inattention or carolyn-inattention to more than one modality TOTAL SCORE: 1 Instructions Given to Patient at Discharge: Patient Instructions Patient Instructions: You were admitted to the neurology service at [facility] Your Diagnosis: Small vessel disease stroke - Work close with your primary care provider (PCP) with monitoring your blood pressure, blood sugar and cholesterol. - Lifestyle modifications should include: taking all medications as prescribed, smoking cessation orstaying away from others who are smoking to avoid second hand smoke, limiting alcohol intake, maintaining a normal/healthy weight, adhering to a healthy diet (low-fat, low-sodium, high intake of fresh fruits and vegetables, limiting red meat), and engaging in regular physical activity. NEW MEDICATIONS: - clopidogrel (Plavix) 75mg daily for 21 days then stop - atorvastatin (Lipitor) 10mg daily indefinately Continue all other medications. Avoid low blood pressures. ??? Call 911 or your local EMS if you have sudden weakness or numbness in your face or one of your limbs, slurred speech, loss of vision, or difficulty speaking. It is important to seek medical attention as soon as possible, as these symptoms could be related to a new stroke. ??? Diet: we recommend a heart healthy diet: low fat, low cholesterol, low concentrated sweets. ??? Activity Restrictions: As tolerated. ??? Driving Restrictions: No driving for 1 week. May resume prior driving habits after 1 weeks if neurologically stable with no further events. Diabetes Follow-up and Instructions: 1. Continue to monitor blood sugars with goal BG <120 and HAIC <7.0. 2. Know your cholesterol levels and the goal you are striving for. Your goal LDL is <100. 3. Continue to try eating healthy, which includes a low fat, low cholesterol, high fiber, no added sweets diet. 4. Exercising regularly is important. The goal for most people is 30 minutes of exercise, 3-4 times per week. Check with your Health care Provider for specific guidelines. 5. Monitor blood pressure weekly: Goal for most patients is <130/70. Check with your Health Care Provider for specific guidelines. Continue to take all medications daily. 6. Remember to have an annual ophthalmic (eye) examination 7. Remember to have a quarterly foot examination done by your Health care provider. 8. Ask your Health care Provider about annual screening for urine micro-albumin. 9. Please plan quarterly follow-up visits for diabetes management with your Health care Provider. 10. Consider Diabetes Education in your community; [facility] offers a diabetes program called ???Jump Start?? . Call [facility] for more information. Know Your Numbers! Blood Pressure BP Readings from Last 3 Encounters: 08/07/19 149/84 02/14/19 144/76 01/04/19 138/84 HA1C Lab Results Component Value Date HA1C 5.5 08/07/2019 Cholesterol Lab Results Component Value Date CHLPL 138 08/07/2019 HDL 36 08/07/2019 CHOLHDL 3.8 08/07/2019 TRIG 121 08/07/2019 LDLCHOL 80 08/02/2018 LDLDIRECT 92 08/07/2019 Below is an explanation of each of the cholesterol test results. Total cholesterol: This test is best when below 200. It can be improved primarily by a low fat diet. HDL (good cholesterol): The higher the better. It is best when above 50. It is primarily geneticallydetermined but can be increased with exercise. LDL (bad cholesterol): this test is best when below 130 (or below 100 if you have heart disease or below 70 if you have had a stroke or TIA). It can be lowered by a low fat diet. Triglycerides: This test is best when below 180. It can be lowered by a low fat diet, avoidance of sweets and weight loss. ??? Follow-up: ??? Neurology: You will have a follow-up appointment in the neurology clinic at [facility]. See below for the appointment time. If you do not have an appointment, you will be called with a time/date for this appointment. ??? Primary Care Provider: Please follow up with your Primary Care Provider within one to 2 weeks ofdischarge. For questions regarding this document or issues relating to this hospitalization on the Neurology Service, please contact the author(s) of this discharge summary through the [facility] Rebar Bender . IMPACT Improving Post-Acute Care Transitions after Stroke The Stroke Team at [facility] is committed to supporting stroke patients as they make the transition from hospital to home. Our job is not done when you walk out the door. Studies have identified that the first 30 days after being discharged from the hospital as the time when patients are most vulnerable. Our team of doctors, associate providers, nurses and rehab specialists will work closely with you during this critical period to ensure you get the care and support you need to have the most successful recovery possible. WHAT YOU NEED TO KNOW Your hospital stay can be overwhelming. As you get ready to start on the road to recovery, you may not know what questions to ask. You might not understand or remember the answers you get. We encouragequestions and it is okay to ask for clarification any time. Here are the du pieces of information you should know following your stroke: ??? The type and location of your stroke and how it affected you ??? What likely caused your stroke ??? What tests were done and what tests are still needed ??? What your personal risk factors are for stroke and what you can do about them ??? What medications to take (and when to take them) to prevent repeats strokes ??? What lifestyle changes (such as diet and exercise) can reduce your risk for stroke ??? How you can manage other health conditions to reduce your risk of stroke ??? The warning signs of stroke (FAST) and when to call 911 immediately ??? Who to call with non-urgent questions if you need help ??? What to expect for recovery and rehabilitation at home ??? What your activity restrictions are (including driving and return to work) ??? When to return for follow-up at the stroke clinic Be sure to discuss these and any other questions you have with our team before you leave the hospital and during any follow-up phone calls or visits. We are here to support you. WHAT YOU NEED TO DO There are some risk factors for stroke that can???t be changed such as age, gender, race or genetics. There are other risk factors you can do something about. Examples include high blood pressure, highcholesterol, obesity, diabetes and smoking. You may be able to reduce your risk of repeat stroke by 80% by managing these risk factors. Steps you should take include: ??? Don???t smoke and avoid second-hand smoke ??? Improve your eating habits, limit alcohol, and maintain a healthy weight ??? Be physically active ??? Know your numbers - it is important to monitor your cholesterol, blood pressure and blood sugar ??? Take your medication as directed and keep follow-up appointments; this is important even if you are feeling well Let your provider know if you need help with any of these changes or would like more information. Wehave resources available that can be helpful. WHAT YOU CAN EXPECT Before you leave the hospital INTRODUCTION TO OUR TEAM: When you are ready to be discharged from the hospital, a member of the stroke team will meet with you to plan next steps. We want to make sure that a plan is in place to maximize your recovery and avoid any obstacles or set-backs. You will receive an information packet with personalized education materials. Your new medications will be explained and any necessary follow-up tests and appointments will be arranged before you go. after you get home 1. PHONE CALL: We want to hear how you are managing the transition to home so we will call you within 1-2 business days after arriving home. During that call, we can discuss any concerns you have with medications, any new symptoms and any difficulties arranging home services. You will have an opportunity to ask questions and provide feedback to us. If you have any needs or challenges that you did notnotice until you got home, make sure to bring this up during the call. We want to catch small problems early before they grow into bigger problems. 2. FOLLOW-UP VISIT: You will be seen by a doctor or an associate provider (physician assistant professor of music or nurse practitioner) who specializes in stroke care and prevention. This should be arranged within one to two weeks after you leave the hospital. The provider will assess your progress, perform a neurological evaluation, review and adjust your medications, make recommendations, and refer you to other specialty services if needed. We will reach out to your primary care provider to ensure that your care iscoordinated. Depending on your progress, further follow-up in the stroke clinic may be arranged. We encourage you to bring your partner, a family member or friend so they can support you. You will also be asked to complete questionnaires that will reveal stroke symptoms you might not expect, such as depression, anxiety, fatigue or personality changes. Your answers to these questions will help us to determine the plan of treatment that is best for you. 3. FOLLOW UP PHONE CALLS: Our team will plan to follow-up with you by phone 30 days and 90 days after you return home to make sure you continue to stay on track with your recovery. IF YOU HAVE QUESTIONS If at any time, you have questions, please call our team at . It is better to be informed and relieve any anxiety you may experience than to wait for your next visit. General Instructions None Future Appointments and Orders Future Appointments and Orders Future Appointments Provider Department Dept Phone 08/17/2019 9:40 AM BULMARO, THREE L [facility] Arrive at: Remote Advisor Area 3L [phone] 08/17/2019 10:40 AM Eriberto Melgar MD Solid Organ Transplant at [facility] Arrive at: Remote Advisor Area [phone] Future Orders Complete By Expires Referral to Speech Therapy [LFC311 Custom] As directed Process Instructions: Scheduling Instructions: Questions: Evaluation location?: In Clinic Reason for Speech Evaluation?: Recommended focus?: Primary Care Provider: Anna Mullen MD [address] / [place] [address] Discharge References/Attachments None documented in this encounter Discharge Instructions Patient InstructionsAnnestiven Kaitlyn Stoddard, PROGRAM PRODUCTION SPECIALIST - 08/07/2019 9:59 AM EST Images from the original note were not included. Patient Instructions: You were admitted to the neurology service at [facility] Your Diagnosis: Small vessel disease stroke - Work close with your primary care provider (PCP) with monitoring your blood pressure, blood sugar and cholesterol. - Lifestyle modifications should include: taking all medications as prescribed, smoking cessation orstaying away from others who are smoking to avoid second hand smoke, limiting alcohol intake, maintaining a normal/healthy weight, adhering to a healthy diet (low-fat, low-sodium, high intake of fresh fruits and vegetables, limiting red meat), and engaging in regular physical activity. NEW MEDICATIONS: - clopidogrel (Plavix) 75mg daily for 21 days then stop - atorvastatin (Lipitor) 10mg daily indefinately Continue all other medications. Avoid low blood pressures. ??? Call 911 or your local EMS if you have sudden weakness or numbness in your face or one of your limbs, slurred speech, loss of vision, or difficulty speaking. It is important to seek medical attention as soon as possible, as these symptoms could be related to a new stroke. ??? Diet: we recommend a heart healthy diet: low fat, low cholesterol, low concentrated sweets. ??? Activity Restrictions: As tolerated. ??? Driving Restrictions: No driving for 1 week. May resume prior driving habits after 1 weeks if neurologically stable with no further events. Diabetes Follow-up and Instructions: 1. Continue to monitor blood sugars with goal BG <120 and HAIC <7.0. 2. Know your cholesterol levels and the goal you are striving for. Your goal LDL is <100. 3. Continue to try eating healthy, which includes a low fat, low cholesterol, high fiber, no added sweets diet. 4. Exercising regularly is important. The goal for most people is 30 minutes of exercise, 3-4 times per week. Check with your Health care Provider for specific guidelines. 5. Monitor blood pressure weekly: Goal for most patients is <130/70. Check with your Health Care Provider for specific guidelines. Continue to take all medications daily. 6. Remember to have an annual ophthalmic (eye) examination 7. Remember to have a quarterly foot examination done by your Health care provider. 8. Ask your Health care Provider about annual screening for urine micro-albumin. 9. Please plan quarterly follow-up visits for diabetes management with your Health care Provider. 10. Consider Diabetes Education in your community; [facility] offers a diabetes program called ???Jump Start?? . Call [facility] for more information. Know Your Numbers! Blood Pressure BP Readings from Last 3 Encounters: 08/07/19 149/84 02/14/19 144/76 01/04/19 138/84 HA1C Lab Results Component Value Date HA1C 5.5 08/07/2019 Cholesterol Lab Results Component Value Date CHLPL 138 08/07/2019 HDL 36 08/07/2019 CHOLHDL 3.8 08/07/2019 TRIG 121 08/07/2019 LDLCHOL 80 08/02/2018 LDLDIRECT 92 08/07/2019 Below is an explanation of each of the cholesterol test results. Total cholesterol: This test is best when below 200. It can be improved primarily by a low fat diet. HDL (good cholesterol): The higher the better. It is best when above 50. It is primarily geneticallydetermined but can be increased with exercise. LDL (bad cholesterol): this test is best when below 130 (or below 100 if you have heart disease or below 70 if you have had a stroke or TIA). It can be lowered by a low fat diet. Triglycerides: This test is best when below 180. It can be lowered by a low fat diet, avoidance of sweets and weight loss. ??? Follow-up: ??? Neurology: You will have a follow-up appointment in the neurology clinic at [facility]. See below for the appointment time. If you do not have an appointment, you will be called with a time/date for this appointment. ??? Primary Care Provider: Please follow up with your Primary Care Provider within one to 2 weeks ofdischarge. For questions regarding this document or issues relating to this hospitalization on the Neurology Service, please contact the author(s) of this discharge summary through the [facility] Rebar Bender . IMPACT Improving Post-Acute Care Transitions after Stroke The Stroke Team at [facility] is committed to supporting stroke patients as they make the transition from hospital to home. Our job is not done when you walk out the door. Studies have identified that the first 30 days after being discharged from the hospital as the time when patients are most vulnerable. Our team of doctors, associate providers, nurses and rehab specialists will work closely with you during this critical period to ensure you get the care and support you need to have the most successful recovery possible. WHAT YOU NEED TO KNOW Your hospital stay can be overwhelming. As you get ready to start on the road to recovery, you may not know what questions to ask. You might not understand or remember the answers you get. We encouragequestions and it is okay to ask for clarification any time. Here are the du pieces of information you should know following your stroke: ??? The type and location of your stroke and how it affected you ??? What likely caused your stroke ??? What tests were done and what tests are still needed ??? What your personal risk factors are for stroke and what you can do about them ??? What medications to take (and when to take them) to prevent repeats strokes ??? What lifestyle changes (such as diet and exercise) can reduce your risk for stroke ??? How you can manage other health conditions to reduce your risk of stroke ??? The warning signs of stroke (FAST) and when to call 911 immediately ??? Who to call with non-urgent questions if you need help ??? What to expect for recovery and rehabilitation at home ??? What your activity restrictions are (including driving and return to work) ??? When to return for follow-up at the stroke clinic Be sure to discuss these and any other questions you have with our team before you leave the hospital and during any follow-up phone calls or visits. We are here to support you. WHAT YOU NEED TO DO There are some risk factors for stroke that can???t be changed such as age, gender, race or genetics. There are other risk factors you can do something about. Examples include high blood pressure, highcholesterol, obesity, diabetes and smoking. You may be able to reduce your risk of repeat stroke by 80% by managing these risk factors. Steps you should take include: ??? Don???t smoke and avoid second-hand smoke ??? Improve your eating habits, limit alcohol, and maintain a healthy weight ??? Be physically active ??? Know your numbers - it is important to monitor your cholesterol, blood pressure and blood sugar ??? Take your medication as directed and keep follow-up appointments; this is important even if you are feeling well Let your provider know if you need help with any of these changes or would like more information. Wehave resources available that can be helpful. WHAT YOU CAN EXPECT Before you leave the hospital INTRODUCTION TO OUR TEAM: When you are ready to be discharged from the hospital, a member of the stroke team will meet with you to plan next steps. We want to make sure that a plan is in place to maximize your recovery and avoid any obstacles or set-backs. You will receive an information packet with personalized education materials. Your new medications will be explained and any necessary follow-up tests and appointments will be arranged before you go. after you get home 1. PHONE CALL: We want to hear how you are managing the transition to home so we will call you within 1-2 business days after arriving home. During that call, we can discuss any concerns you have with medications, any new symptoms and any difficulties arranging home services. You will have an opportunity to ask questions and provide feedback to us. If you have any needs or challenges that you did notnotice until you got home, make sure to bring this up during the call. We want to catch small problems early before they grow into bigger problems. 2. FOLLOW-UP VISIT: You will be seen by a doctor or an associate provider (physician assistant professor of music or nurse practitioner) who specializes in stroke care and prevention. This should be arranged within one to two weeks after you leave the hospital. The provider will assess your progress, perform a neurological evaluation, review and adjust your medications, make recommendations, and refer you to other specialty services if needed. We will reach out to your primary care provider to ensure that your care iscoordinated. Depending on your progress, further follow-up in the stroke clinic may be arranged. We encourage you to bring your partner, a family member or friend so they can support you. You will also be asked to complete questionnaires that will reveal stroke symptoms you might not expect, such as depression, anxiety, fatigue or personality changes. Your answers to these questions will help us to determine the plan of treatment that is best for you. 3. FOLLOW UP PHONE CALLS: Our team will plan to follow-up with you by phone 30 days and 90 days after you return home to make sure you continue to stay on track with your recovery. IF YOU HAVE QUESTIONS If at any time, you have questions, please call our team at . It is better to be informed and relieve any anxiety you may experience than to wait for your next visit. documented in this encounter Medications at Time of Discharge Medication Sig Dispensed Refills Start Date End Date atorvastatin (LIPITOR) Take 1 tablet by 90 [...] 6 09/14/2012 mg tablet Dx code :250.60 gabapentin (NEURONTIN) Take 3 capsules by 90 capsule 12 08/0702/28/2020 300 mg Capsule mouth nightly. 300 mg in the morning and 900 mg at night. PROGRAF 1 mg Capsule TAKE TWO CAPSULES BY 120 capsule 11 03/201902/23/2020 MOUTH in AM and 1 capsule in PM. Pancreas transplant 08/28/2013. ICD code Z94.83 clopidogrel (PLAVIX) 75 Take 1 tablet by 21 tablet 0 201808/30/2019 mg Tablet mouth daily. mycophenolate Take two capsules by 360 capsule 3 06/01/2019 02/06/2020 (CELLCEPT) 250 mg mouth twice a day Capsule Pancreas transplant 08/28/2013 Z94.83 traZODone (DESYREL) 50 TAKE ONE TABLET BY 90 tablet 3 05/0404/30/2020 mg Tablet MOUTH EVERY EVENING lisinopril Take 1.5 tablets by 270 tablet 3 03/02/201906/13 (PRINIVIL;ZESTRIL) 20 mouth 2 times daily. mg TabletIndications: Aftercare following organ transplant aspirin 81 mg Tablet, Take 81 mg by mouth 0 08/30/2019 Chewable daily. acetaminophen (TYLENOL) Take 2 tablets by 30 tablet 0 09/0205/22/2020 325 mg tablet mouth every 4 hours as needed (Pain, Fever. if oral temperature greater than 38.5 Centigrade). documented as of this encounter Progress Notes Sabrina Mccormack - 08/07/2019 11:30 AM EST Richard Hsu discharged to Home by private car with Spouse. All belongings sent with patient. MOUNIKA removed, skin free from pressure ulcers. Discharge instructions, medications, and follow-up appointments reviewed, education provided on FACE, lab work and medications, all questions answered. Patient instructed to call with concerns. Lisinopril given prior to discharge Lance Saab MD - 08/07/2019 9:23 AM EST Neurology Progress Note - 08/07/19 Patient name: Richard Hsu Date of : 1965 PCP: Anna Mullen MD CC: New increased weakness left lower extremity as well as difficulty swallowing/throat closing HPI: Richard Hsu is a 53 y.o. with history of pancreatic transplant, ASCVD, depression, gastroparesis, migraines, hypothyroidism who presented to [facility] for slurred speech and some ataxia, as well as weakness involving the left upper and lower extremities. INTERVAL HISTORY: Patient notes improved strength in left lower extremity as well as improved ability of swallowing. MRI brain completed Vitals: Heart rates 60s to 80s, BPs: 100s to 150s, saturating well on room air Labs: CBC within normal limits; BMP within normal limit except magnesium noted to be 0.66; LDL: 92, HDL: 36, triglyceride: 121, LFTs within normal limits, CRP: 0.7, hemoglobin A1c 5.5 Physical Exam: Vitals: Temp: [36.2 ??C (97.2 ??F)-36.9 ??C (98.4 ??F)] Heart Rate: [60-92] Resp: [10-20] BP: (107-150)/(59-95) SpO2: [95 %-100 %] Heart Rate from SpO2: [60 bpm-96 bpm] Gen: Patient of apparent stated age, well nourished, well developed, awake, alert, NAD HEENT: Supple, no meningismus, no occipital or midline cervical tenderness; decreased range of motion to the left and right CV: + S1, S2, RRR, no overt murmur Resp: CTA B/L with good respiratory effort Abd: +normoactive bowel sounds, soft, nontender, nondistended Ext: No edema. No bony deformity Neuro Exam: MS: AAOx4, clear language, minimal dysarthria, follows commands appropriately CN: Left pupil 4 mm with right pupil 2 mm with both being reactive to light (no overt change in darker lighting), EOMI although at times patient appeared to have mild exotropia of left eye, visual greco full; mild ptosis on left eye Facial sensation intact, no facial asymmetry Hearing intact to voice Palate elevates symmetrically, tongue protrudes midline SCM and trap strength intact Motor: Normal bulk and tone. UE: 5/5 R, 4+/5 L Arm abduction at shoulder 5/5 R, 4+/5 L Elbow extension 5/5 R, 4+/5 L Elbow flexion 5/5 R, 4/5 L Architectural Intern LE: 5/5 R, 4+/5 L Hip flexion 5/5 R, 4+/5 L Knee extension 5/5 R, 4+/5 L Knee flexion 5/5 R, 3/5 L Foot dorsiflexion 5/5 R, 4/5 L Foot plantar flexion Sensation: Intact to light touch throughout Reflexes: DTRs 2+ R, 3+ L Biceps 2+ R, 3+ L Brachioradialis 2+ R, 2+ L Triceps 2+ R, 3+ L Patellar Trace + R, trace + L Achilles tendon Toes - R down, L down Coordination: Finger to nose intact, no dysmetria but slow bilaterally Rapid alternating movements & finger tapping smooth and symmetric Heel-wolf intact No tremor Gait: Not assessed NIH Stroke Scale: (bold applicable choices) NIH Stroke Scale at Discharge Evaluation: 1.a. Level of consciousness: 0-Alert 1-Not alert, [...] to more than one modality TOTAL SCORE: 1 Labs: Recent Results (from the past 24 hour(s)) Magnesium Result Value Ref Range Magnesium 0.66 (L) 0.69 - 1.07 mmol/L Phosphorus Result Value Ref Range Phosphorus 2.9 2.5 - 4.5 mg/dL Hepatic Function Panel Result Value Ref Range Total Protein 6.6 6.1 - 8.0 gm/dL Albumin 3.8 3.2 - 5.2 gm/dL AST 23 0 - 39 unit/L ALT 20 0 - 55 unit/L Alk Phos 92 40 - 130 unit/L Total Bilirubin 1.3 0.2 - 1.3 mg/dL Bili, Direct 0.2 0.0 - 0.3 mg/dL Prothrombin Time Result Value Ref Range PT 12.6 (H) 9.4 - 12.5 sec INR 1.1 APTT Result Value Ref Range PTT 30 25 - 37 sec Hemoglobin A1c Result Value Ref Range Hemoglobin A1C 5.5 4.3 - 5.6 % Est Avg Gluc 111 mg/dL LDL Cholesterol, Direct Result Value Ref Range LDL Chol Direct 92 mg/dL HDL/Cholesterol Profile Result Value Ref Range Chol, Total 138 mg/dL HDL 36 mg/dL Chol/HDL Ratio 3.8 ratio Chol/HDL Interpretation See Note Triglyceride Result Value Ref Range Triglycerides 121 mg/dL Hemogram Result Value Ref Range WBC 6.5 4.0 - 9.5 x10(3)/mcL RBC 4.71 4.58 - 5.54 x10(6)/mcL Hemoglobin 14.0 13.7 - 16.5 gm/dL Hematocrit 41.5 40.5 - 48.5 % MCV 88.1 82.9 - 93.1 fL MCH 29.7 27.5 - 32.1 pg MCHC 33.7 32.0 - 35.7 gm/dL Platelets 210 145 - 357 x10(3)/mcL RDWSD 41.9 36.0 - 45.0 fL RDWCV 13.0 11.4 - 13.8 % MPV 10.6 7.6 - 12.9 fL nRBC % Auto 0.0 % nRBC Abs Auto 0.000 0.000 - 0.000 x10(3)/mcL Differential, Automated Result Value Ref Range Neutrophils % 47.4 % Neutr Abs (ANC) 3.08 1.70 - 6.10 x10(3)/mcL Lymphocytes % 39.3 % Lymphocytes Abs 2.6 0.9 - 3.2 x10(3)/mcL Monocytes % 8.4 % Monocyte Abs 0.6 0.3 - 0.9 x10(3)/mcL Eosinophils % 3.8 % Eosinophils Abs 0.2 0.0 - 0.4 x10(3)/mcL Basophils % 0.6 % Basophils Abs 0.0 0.0 - 0.1 x10(3)/mcL Immature Gran % 0.50 % Kym Gran Abs 0.03 0.00 - 0.04 x10(3)/mcL BMP w/fasting Glucose Result Value Ref Range Glucose Fasting 111 (H) 65 - 99 mg/dL BUN 10 10 - 20 mg/dL Creatinine 0.93 0.80 - 1.50 mg/dL Sodium 138 135 - 145 mmol/L Potassium 4.3 3.5 - 5.0 mmol/L Chloride 104 98 - 107 mmol/L CO2 22 22 - 31 mmol/L Anion Gap 12 5 - 15 mmol/L Calcium 9.0 8.5 - 10.5 mg/dL eGFR 95 >=60 mL/min/1.73 m?? eGFR 110 >=60 mL/min/1.73 m?? CRP, acute inflammation Result Value Ref Range CRP 0.7 <=4.9 mg/L Diagnostic Tests and Imaging: Head CT w/out: CTA head Impression: No acute findings. Note the early ischemic change can be OCD. CTA neck Impression: 1. No acute findings. 2. Dominant left vertebral artery. 3. Prominent anterior C5-C6 marginal osteophyte. This sometimes can be a cause of dysphasia. Consider modified barium swallow with speech pathology. 4. Somewhat patulous esophagus XR chest: Impression: No acute findings MRI brain without contrast IMPRESSION No acute infarctions. Assessment and Plan: Richard Hsu is a 53 y.o. with history of pancreatic transplant, ASCVD, depression, gastroparesis, migraines, hypothyroidism who presented to [facility] for slurred speech and some ataxia, as well as weakness involving the left upper and lower extremities. Patient had an uneventful night with noted improvement of his symptoms. MRI brain was completed and did not show an infarct as initially anticipated. On examination patient did have ptosis that appeared to be bilateral (on my initial exam ptosis on the left but later exam with team ptosis appeared to be on the right) versus a possible Dalila's. CTA of the head and neck was completed at the outside hospital that does not appear that he has a dissection that is likely causing a Dalila's syndrome. The other possibility of his presentation was proposed with the thought of myasthenia gravis. Acetylcholine antibodies were sent and these are pending at this time. We will see how he does throughout the day in regards to his speech and swallowing, and barring any setbacks he may be appropriate for discharge later in the day. Also, as he did have a prior history of stroke, and is a noted diabetic prior tohis pancreatic transplant, we believe that he will stay on dual antiplatelet therapy for at least 30days based on data from the POINT trial. # Stroke like Symptoms versus myasthenia gravis -Floor level of care neurology -Neuro check & vitals Q4hrs / Q4hrs -Permissive HTN, treat SBP >220 with prn labetalol, enalaprilat -Aspirin 325 and loading dose of clopidogrel 600 mg given at outside hospital -Continue aspirin 81 mg daily -Continue clopidogrel 75 mg daily for 30 days -Check LFT, lipase, lipid profile, HbA1c, Mg, Phos, UA, ESR, CRP -Statin if lipids allow -Acetylcholine receptor antibody -TTE -12 lead EKG -Telemetry -MRI brain wo contrast -CTA head & neck-COMPLETED AT OUTSIDE HOSPITAL -PT/OT/FRUIT OR NUT FARMER evaluations Lance Saab MD Neurology Resident - PGY-4 Vascular Neurology (Stroke) team pager: [phone] 08/07/19 Geoffrey Martinez MD - 08/06/2019 7:54 PM EST Images from the original note were not included. 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 Interestingly the current findings suggest a small right lateral medullary infarction but I need to review if the right Dalila's sign was seen previously. Plan was discussed with the emergency department and speech pathology. The emergency department was going to let the transplant program staff know and we rodolfo l we will continue his immunosuppressants. He agreed to a brain MRI and close observation. We will start a modified diet. Addendum: On my exam in 2013, there was no Dalila's sign noted but he had slight dysarthria and slightly nasalspeech. MRI today shows no clear no infarction but somewhat limited by motion. 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 documented in this encounter H&P Notes Lance Saab MD - 08/06/2019 3:22 PM EST Brief Neurology H&P ?? PLEASE SEE CONSULT NOTE FROM EARLIER IN THE DAY (08/06/19) FOR FULL H&P FOR THIS ADMISSION. ?? Richard Hsu is a 53 y.o. with history of pancreatic transplant, ASCVD, depression, gastroparesis, migraines, hypothyroidism who presented to [facility] for slurred speech and some ataxia, as well as weakness involving the left upper and lower extremities ?? ASSESSMENT Richard Hsu was transferred from [facility] for further evaluation of strokelike symptoms. Upon presentation in the emergency department, in addition to his difficulty with swallowing, it appeared thatthe patient will be more appropriate for inpatient admission versus the initially proposed CDU admission in the emergency department. In addition, patient was evaluated by speech and felt appropriate for a dysphasia/mechanical soft diet. Patient will be admitted for further stroke evaluation includingMRI and TTE. He will be continued on aspirin and Plavix (loaded with Plavix at outside hospital prior to transfer) as part of the POINT trial data. ? Lance Saab MD Neurology Resident - PGY-4 Vascular Neurology (Stroke) team pager: [phone] 08/06/19 Associated attestation - Geoffrey Martinez MD - 08/06/2019 8:51 PM EST Neurology Staff Note I have reviewed the above resident's history during the visit and I agree with the details as written. My physical examination confirms the resident's findings. The assessment and plan were formulated in discussion with me at the time of the visit and I agree with them as documented. See my other note I have examined the patient myself and personally reviewed all studies. In addition, I certify that I am a [facility] credentialed attending provider with admitting privileges and that the patient meets or has met medical necessity to require an inpatient IPI level of care meeting a minimum of two midnights or is on the [facility] inpatient only procedure list (status C) due to: neurologic instability requiring neurologic checks at least every 4 hours. acute stroke requiring neurologic checks at least every 4 hours. MCCs and CCs on admission (Present if in bold): Clinically significant cerebral edema, vasogenic Hyponatremia CHF acute, systolic Brain compression Hypernatremia CHF acute on chronic, systolic Clinically significant cerebral edema, cytotoxic Cerebellar ataxia CHF acute on chronic, diastolic Coma Hypertension, malignant CHF acute diastolic Hemiplegia Hypertension accelerated CHFchronic diastolic Hemiparesis Hypertensive encephalopathy Dementia with delrium Quadraplegia Malnutrition BMI<19 Dementia with depression Encephalopathy, metabolic Cachexia Alzheimer's Dementia with behavioral disturbance Encephalopathy, toxic Morbid obesity, BMI>40 Anoxic brain damage Encephalopathy, other CKD stage 4 (eGFR 15-30ml/min/1.73m2) Acute Kidney Injury Delirium, drug induced CKD stage 5 or ESRD Paroxysmal AF Persistent AF Longstanding persistent AF Permanent AF documented in this encounter ED Notes Ariel Schultz RN - 08/06/2019 7:55 PM EST Transported to in [facility] Ariel Schultz RN - 08/06/2019 7:33 PM EST Verbal report to Neuro RN Ni Bianchi RN - 08/06/2019 3:52 PM EST Pt requested 'something for the MRI', gave 1mg IV ativan then told by MRI that there was a 20min hold, pt reassured that ativan would still be in effect. Ni Bianchi RN - 08/06/2019 1:18 PM EST Pt swallowed meds without issue. Eriberto Sherman PA - 08/06/2019 12:53 PM EST Patient Name: Richard Hsu Patient Age: 53 y.o. Birthdate: 1965 Admit date: 08/06/2019 Attending Physician: Jameel Garcia Jr., MD CLINICAL DECISION UNIT - ADMISSION NOTE Admit date: 08/06/2019 Attending Physician: Jameel Garcia Jr., MD Brief Summary of Patient Presentation: 53-year-old man with a history of prior stroke as a child with some residual left-sided weakness presents as a transfer for work-up of transient ischemic attack. He states that he woke up 3 times throughout the night to go to the bathroom. During the last time he felt that he was dragging his left legand had to hold onto the bed and into palencia in order to make it to the bathroom. He felt that the back of his throat was swollen and he was having difficulty speaking and swallowing. He did not report any hives, itching or other allergy symptoms. He had no headache alteration of consciousness or vision with this. He received Benadryl and epinephrine for treatment of presumed allergic reaction and didnot notice any immediate improvement. He underwent stroke evaluation with a CT and CT angiogram which were unremarkable, had unremarkable labs and was discussed with neurology here who requested that the patient be transferred here for evaluation. Here he feels much better but not fully back to baseline. CDU admission Patient is being considered for CDU admission based on recommendation of neurology resident. He continues to have some voice abnormalities and difficulty swallowing. Speech consulted for swallow study.At this point, CDU admission not likely given his continued neurologic changes. Patient Active Problem List Diagnosis Code ??? [...] secondary to other renal disorders I15.1, N28.89 Allergies Allergen Reactions ??? Nexium [Esomeprazole Magnesium] Diarrhea Any acid reflux medication causes severe diarrhea ??? Prilosec [Omeprazole Magnesium] Diarrhea ??? Reglan [Metoclopramide Hcl] TD ??? Simvastatin Past Medical History: Diagnosis Date ??? ASCVD [...] of heart aortic valve ??? Severe headache Social History Socioeconomic History ??? Marital status: Spouse name: Not on file ??? Number of children: Not on file ??? Years of education: Not on file ??? Highest education level: Not on file Occupational History ??? 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 Financial resource strain: Not on file ??? Food insecurity: Worry: Not on file Inability: Not on file ??? Transportation needs: Medical: Not on file Non-medical: Not on file Tobacco Use ??? Smoking status: Never Smoker ??? Smokeless tobacco: Never Used Substance and Sexual Activity ??? Alcohol use: No Comment: history of abuse, stopped 1996 ??? Drug use: No ??? Sexual activity: Yes Comment: deferred Lifestyle ??? Physical activity: Days per week: Not on file Minutes per session: Not on file ??? Stress: Not on file Relationships ??? Social connections: Talks on phone: Not on file Gets together: Not on file Attends mandaen service: Not on file Active member of club or organization: Not on file Attends meetings of clubs or organizations: Not on file Relationship status: Not on file ??? Intimate partner violence: Fear of current or ex partner: Not on file Emotionally abused: Not on file Physically abused: Not on file Forced sexual activity: Not on file Other Topics Concern ??? Exercise: Patient reported Yes Comment: yard work, push ups situps ??? 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 Lives with Family History Problem Relation Age of Onset ??? Alcohol Use Disorder Father ??? Coronary Artery Disease Maternal Grandmother ??? Diabetes Maternal Grandmother ??? Heart Disease Maternal Grandmother ??? High Blood Pressure Mother ??? High Blood Pressure Brother ??? Stroke Maternal Grandfather Review of Systems Constitutional: Negative for chills and fever. HENT: Positive for trouble swallowing. Negative for facial swelling. Eyes: Negative for visual disturbance. Respiratory: Negative for shortness of breath. Cardiovascular: Negative for chest pain. Gastrointestinal: Negative for abdominal pain and vomiting. Skin: Negative for rash. Neurological: Negative for headaches. All other systems reviewed and are negative. Focused Exam: BP 140/76 Pulse 63 Temp 36.8 ??C (98.2 ??F) (Oral) Resp 12 Ht 182.9 cm (6') Wt 93 kg (205 lb) SpO2 99% BMI 27.80 kg/m?? Physical Exam Constitutional: He is oriented to person, place, and time. He appears well- developed and well-nourished. No distress. HENT: Head: Normocephalic and atraumatic. Nose: Nose normal. Mouth/Throat: Oropharynx is clear and moist. No oropharyngeal exudate. Slight dysphonia Eyes: Conjunctivae and EOM are normal. Right eye exhibits no discharge. Left eye exhibits no discharge. Slight anisocoria Neck: Normal range of motion. Cardiovascular: Normal rate, regular rhythm, normal heart sounds and intact distal pulses. No murmur heard. Pulmonary/Chest: Effort normal and breath sounds normal. No respiratory distress. He has no wheezes.He has no rales. Lymphadenopathy: He has no cervical adenopathy. Neurological: He is alert and oriented to person, place, and time. No sensory deficit. Skin: Skin is warm and dry. No rash noted. He is not diaphoretic. Nursing note and vitals reviewed. Review of ED Course: Labs, CTA, CT, MRI H&P Serial exams Plan: Upon review of patient's case, he continued to have some difficulty swallowing. Speech pathology wasconsulted. After discussion with neuro attending, they felt patient likely has brainstem infarct andrecommended admission to the hospital. Patient will be admitted under neurology. Eriberto Sherman PA 08/06/19 1804 Ni Arshad RN - 08/06/2019 12:18 PM EST Meds given per oct, MRI safety sheet done, pt remains on monitors, some slight difficulty swallowingwater. Jameel Noguera Jr., MD - 08/06/2019 10:08 AM EST Chief Complaint Patient presents with ??? Transient Ischemic Attack HPI 53-year-old man with a history of prior stroke as a child with some residual left-sided weakness presents as a transfer for work-up of transient ischemic attack. He states that he woke up 3 times throughout the night to go to the bathroom. During the last time he felt that he was dragging his left legand had to hold onto the bed and into palencia in order to make it to the bathroom. He felt that the back of his throat was swollen and he was having difficulty speaking and swallowing. He did not report any hives, itching or other allergy symptoms. He had no headache alteration of consciousness or vision with this. He received Benadryl and epinephrine for treatment of presumed allergic reaction and didnot notice any immediate improvement. He underwent stroke evaluation with a CT and CT angiogram which were unremarkable, had unremarkable labs and was discussed with neurology here who requested that the patient be transferred here for evaluation. Here he feels much better but not fully back to baseline. Allergies Allergen Reactions ??? Nexium [Esomeprazole Magnesium] Diarrhea Any acid reflux medication causes severe diarrhea ??? Prilosec [Omeprazole Magnesium] Diarrhea ??? Reglan [Metoclopramide Hcl] TD ??? Simvastatin Review of Systems Constitutional: Negative for chills and fever. HENT: Positive for trouble swallowing. Negative for facial swelling. Eyes: Negative for visual disturbance. Respiratory: Negative for shortness of breath. Cardiovascular: Negative for chest pain. Gastrointestinal: Negative for abdominal pain and vomiting. Skin: Negative for rash. Neurological: Negative for headaches. All other systems reviewed and are negative. Physical Exam Constitutional: He is oriented to person, place, and time. He appears well- developed and well-nourished. HENT: Head: Normocephalic and atraumatic. Mouth/Throat: Oropharynx is clear and moist. Eyes: Pupils are equal, round, and reactive to light. EOM are normal. Slight anisocoria R>L Neck: Normal range of motion. Neck supple. No JVD present. No tracheal deviation present. Cardiovascular: Normal rate, regular rhythm and normal heart sounds. Pulmonary/Chest: Effort normal. Abdominal: Soft. Musculoskeletal: Normal range of motion. Neurological: He is alert and oriented to person, place, and time. A sensory deficit is present. No cranial nerve deficit. Coordination normal. Slight L pronator drift, slight LLE weakness 4/5, slightly decreased sensation on left without neglect. Skin: Skin is warm and dry. Capillary refill takes less than 2 seconds. Psychiatric: He has a normal mood and affect. His behavior is normal. Thought content normal. Vitals reviewed. Procedures MDM ED Course: Seen by neurology in the ED - plan for inpatient admission. Jameel Garcia Jr., MD 08/08/19 1634 Jameel Garcia Jr., MD - 08/06/2019 8:42 AM EST 53 yo man with h/o pancreatic transplant referred by Dr. Padilla for CDU admission for evaluation of TIA. Presented as dysphagia and received epinephrine and benadryl. Not thought to be an allergic reaction, however, as the patient then developed left sided weakness and dysarthria. CT head, CTA negative. Labs and vitals WNL. Will need neuro consult and usual TIA evaluation. Jameel Garcia Jr., MD 08/06/19 0887 documented in this encounter Miscellaneous Notes Plan of Care - Felisa Evangelista, OT - 08/07/2019 11:30 AM EST Occupational Therapy Evaluation Patient profile: Richard Hsu is a 53 y.o. male with history of pancreatic transplant, ASCVD, depression, gastroparesis, migraines, hypothyroidism, admitted on 08/06/2019 for slurred speech and someataxia, as well as weakness involving the left upper and lower extremities. Past Medical History: Diagnosis Date ??? ASCVD [...] DIAGNOSTIC performed by Anna Rapp MD at [facility] ENDOSCOPY ??? PRO TRANSPLANT ALLOGRAFT PANCREAS 08/28/2013 @PANCREATIC TRANSPLANT performed by Iraj eKller MD at [facility] MAIN OR ??? PRO TRANSPLANT, PREP DONOR PANCREAS 08/28/2013 @PREPARATION CADAVERIC PANCREAS, STANDARD performed by Iraj Keller MD at [facility] MAIN OR ??? PRO UNLISTED PROCEDURE, MUSCULOSKELETAL SYSTEM, GENERAL 10 years carpel tunnel ??? PRO UPPER GI ENDOSCOPY, BIOPSY 12/31/2011 UPPER GASTROINTESTINAL ENDOSCOPY,WITH BIOPSY SINGLE OR MULTIPLE performed by CLAYTON BHAKTA at [facility] ENDOSCOPY ??? PRO UPPER GI ENDOSCOPY, BIOPSY N/A 08/15/2015 EGD WITH BIOPSY performed by Clayton Bhakta MD at [facility] ENDOSCOPY ??? SHOULDER SURGERY ??? 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 Objective: Seen today for OT evaluation. Pt's was present. Cognitive Status/Behavior: ?? Behavior / Mood: alert and cooperative ?? Alert and oriented to: person, place, time and situation ?? Follows commands: 2 step and 100% of the time ?? Attention: WFL ?? Safety awareness: WFL ?? Aware of hospital events Vision & Perception: ?? corrective lenses for reading ?? Able to read name badge accurately w/o difficulty ?? Mild L inattention Communication: WFL Range of motion, strength, coordination: Hand dominance: right UE status: R UE: grossly WFL, L UE: h/o mild weakness/tone from prior stroke (at 11 years old), periodic flexor tone noted intermittently w/ elbow, wrist and finger flex) shoulder flex/elbow ext WFL, wrist ext: ~45 degrees (limited by tone), impaired active finger ext but intact passive (tight extensortendon); able to use functionally (but occasionally forgets it is there and lets it drop off during tasks) LE limitations: LLE mildly weaker than R (at baseline), feels back to his baseline), has L great toethat he keeps rebreaking because he cannot feel it and control it; may need special shoes/orthotics L UE Exercises: educated pt re: L UE hand exercises, including functional use (re: brushing his teeth, washing body, watching his hand); provided w/ yellow theraputty to work on armhole baster hand strength, finger extension (rolling and making a hopland), pinch (ed re: hiding objects in putty and pulling out w/ L hand), etc. Sensation: intact to light touch in L UE but reports diminished sensation on whole L side Activities of Daily Living: Self-feeding: independent Grooming: independent Dressing: independent to don/doff socks/shoes Bathing: not observed, no deficits anticipated Toileting: Transfer: independent (had just returned to the bathroom alone, no LOB) Hygiene: independent Functional Mobility: Observed pt ambulating from the bathroom w/ no device, no LOB Completed multiple transfers w/ no LOB Balance: Sitting balance: good Standing balance:good Vitals: WFL Pain: no c/o pain Skin: large L great toe, ? If orthotics could help from re-breaking? Education: patient and his have been educated on Role of occupational therapy/rehabilitation, Exercise, Safety, Functional Mobility, Home Management, Recommendations, Family training and Dischargeplanning and verbalize understanding. Patient status, treatment, and mobility recommendations discussed with nursing. Assessment: Pt has been seen for occupational therapy evaluation. Richard Hsu presents with thefollowing performance skill deficits and client factors: decreased strength in L UE, L inattention, and decreased fine motor control. Pt denies any new deficits since this new stroke, but has noticed being more limited with his L UE. Provided pt and his w/ education regarding exercises and functional use of L UE (including providing pt w/ theraputty). Educated pt re: return to work implications and resources available. Pt may benefit from outpatient OT to maximize functional use of his L UE. Anticipate that pt will return home with assistance once medically ready. Do not anticipate further OT needs while hospitalized. Equipment needs at discharge: TBD Anticipated Discharge Disposition: home with outpatient services(outpatient OT) Other Recommendations: ?? ambulate as tolerated ?? Encourage participation in ADL's by providing set up A on tray table and physical assist only as needed. Other Recommendations: No other consults recommended at this time Plan: OT: Therapy Frequency: evaluation only Total Evaluation Minutes, Occupational Therapy: 21(pacheco mena-strength x 1) 2017 OT Evaluation Code Rationale: ?? Diagnosis & Pertinent Co-Morbidities affecting Plan of Care: see PMHx ?? Occupational Profile & Client History: Brief Expanded Extensive x ?? Assessment of Occupational Performance: 1-3 performance deficits x 3-5 performance deficits 5 + performance deficits ?? Clinical Decision Making: Low Moderate High x Clinical decision making of low complexity using standardized patient assessment instrument and measurable assessment of functional outcome. Pager: [phone] FELISA EVANGELISTA OT 08/07/2019 Occupational Therapy Rehabilitation Department Plan of Care - Maryann Greenberg PT - 08/07/2019 10:15 AM EST Physical Therapy Contact Note Consult received, thank you, and pt history reviewed in eDH. Patient profile: Richard Hsu is a 53 y.o. right handed male admitted on 08/06/[address] Geoffrey Martinez MD for evaluation of slurred speech and some ataxia, as well as weakness involving the left upper and lower extremities. Per chart review, hhis morning Richard notes improved (L)LE strength and improved swallow. Met with pt and RN this date who notes pt has been independent and identifies no dynamic safety concerns. Met with patient who notes that he has returned to baseline level of strength (L)LE (baseline (L) sided weakness) and expressed no mobility concerns at this time. Pt did however note progressive baseline weakness of (L)wrist, and from discussion pt would benefit from consult to outpatient OT services for further assessment and support. Otherwise no acute PT needs identified at this time. PT services will plan to monitor this patient for remainder of his hospital admission (anticipate D/C later this AM perRN). Please do not hesitate to page if you have any questions, thank you. Maryann Greenberg, PT Pager #[phone] Physical Therapy Inpatient Rehabilitation Plan of Care - Eriberto Beltrán RN - 08/07/2019 7:18 AM EST Problem: Patient Care Overview Goal: Plan of Care Review Outcome: Ongoing (Interventions Implemented as Appropriate) 08/06/19 2100 Coping/Psychosocial Plan Of Care Reviewed With patient OUTCOME EVALUATION NOTE: OUTCOME SUMMARY: Pt is A/O x4. Strength slightly weaker on the left side extremities. PERRLA. Minor trouble pronouncing some words occasionally. Ambulating in room independently. AVSS PLAN MOVING FORWARD: Echo, neuro checks q4 INDIVIDUALIZED FALL PREVENTION INTERVENTIONS: rounding Patient-specific fall risk factors per assessment: recent TIA Assistance: Independent Supervision: Independent Surveillance: Bed locked in low position, call holder within reach, purposeful hourly rounding, bed/chair alarm on, clutter free room Patient-specific fall prevention interventions for sensory deficits provided: n/a CPG GOAL OUTCOME EVALUATION: Continue care plan as documented. Stroke Education Modifiable risk factors (Ischemic & Hemorrhagic): Checked box [x] indicates present [x ] Hypertension [ ] Use of Oral Contraceptive [ ] Smoker (or exposure to cigarette smoke) [x ] Poor Diet/Nutrition [ ] Diabetes [x ] Physical Inactivity [ ] Hyperlipidemia [ ] Obesity [ ] Atrial Fibrillation [ ] Sleep Apnea [ ] Asymptomatic carotid artery stenosis [ ] Post-menopausal hormone therapy (Hemorrhagic stroke specific) [ ] High alcohol intake [ ] Anticoagulation [ ] Use of sympathomimetic drugs (i.e. cocaine, amphetamine, methamphetamine) Patient Education Provided: Checked box [x] indicates done [x ] Ischemic, Hemorrhagic, TIA education packet provided [ ] Supplemental Personalized Educational Material added to packet, including: [x ] Personal Risk Factors [x ] Warning signs of stroke [x ] Activation of an emergency medical system [x ] Need for follow-up after discharge [x ] Medications prescribed The above items were reviewed in detail today. Patient/family expresses understanding of the likely causes of this stroke, personal risk factors, diagnostic considerations, hospital course thus far, and treatment plan going forward. Patient and/or family members have received personalized stroke educat ional materials to review and were allowed time for questions and answers. There are no further questions at this time. They were encouraged to review the educational handouts provided and write down any questions that may arise for the vascular neurology team to address at a later time. Patient discharge plans include: [x ] home discharge [ ] Acute Rehab [ ] home with family assistance [ ] Other [ ] home with VNA services [ ] Unknown at this time in hospital course [ ] [facility] Plan of Care - Beatriz Camara, [facility] - 08/06/2019 5:19 PM EST Speech Therapy Bedside Swallow Evaluation Patient Profile: Richard Hsu is a 53 y.o. male admitted on 08/06/2019 with history of pancreatictransplant, ASCVD, depression, gastroparesis, migraines, hypothyroidism who presented to [facility] for slurred speech, difficulty swallowing and some ataxia, as well as weakness involving the left upper andlower extremities. Prior Level of Swallow Function: Patient denies a history of dysphagia. Subjective: Patient contacted, alert. Reports increased difficulty swallowing and changes with speech and voice. Communicated with RN who indicated patient had difficulty swallowing medication earlier today when not sitting fully upright in bed. Objective: Pt seen for evaluation today. Pain: Patient did not demonstrate overt s/s of discomfort. Respiratory Status: Room air Vision: Did not assess. Hearing: WFL Current Diet: No diet orders on file Feeding / Oral Care Status: Pt is independent Cognitive-Linguistic Status: alert, oriented to person, place, and time Follows Commands: Follows multi-step commands Positioning: HOB at 80 degrees Oral / Laryngeal Mechanism Clinical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 x10(3)/[facility] LABORATORY Immature Gran % 0.50 % [facility] Comment: Immature granulocytes(IG's)percentage an d absolute count will include metamyelocytes, myelocytes, and promyelo cytes. Blood smears from CBCs yielding IG's will be scanned manually for concor dance. If this scan disagrees with the automated IG or if promyelocytes are not ed, a manual differential will be performed. Kym Gran Abs 0.03 0.00 - 0.04 x10(3)/[facility] MAR Y [facility] LABORATORY Specimen Anatomical Collection Method Collection Time Receive d Time (Source) Location / / Volume Laterality Blood specimen 08/07/2019 6:54 AM 019 7:08 (specimen) EST AM EST Resulting Agency Comment Spec In Lab Lance Saab MD HEMATOLOGY ORDERABLES Performing Organization Address City/State/ZIP Code Phon e Number [address] Hemogram (08/07/2019 6:54 AM EST) athologist Signature WBC 6.5 4.0 - 9.5 [facility] LABORATORY RBC 4.71 4.58 - [facility] 5.54 [facility] x10(6)/[facility] LABORATORY Hemoglobin 14.0 13.7 - [facility] 16.5 gm/dL [facility] LABORATORY Hematocrit 41.5 40.5 - [facility] 48.5 % [facility] LAB[facility]ORY MCV 88.1 82.9 - [facility] 93.1 [facility] LABORATORY MCH 29.7 27.5 - [facility] [place] 32.1 pg [facility] LABORATORY MCHC 33.7 32.0 - [facility] 35.7 gm/dL [facility] LABOR[facility]ORY Platelets 210 145 - 357 [facility] x10(3)/[facility] LABORATORY RDWSD 41.9 36.0 - [facility] 45.0 [facility] LABORATORY RDWCV 13.0 11.4 - [facility] [place] 13.8 % [facility] LABORATORY MPV 10.6 7.6 - 12.9 [facility] LABORATORY nRBC % Auto 0.0 % [facility] nRBC Abs Auto 0.000 0.000 - [facility] [place] 0.000 [facility] x10(3)/[facility] LABORATORY Specimen Anatomical Collection Method Collection Time Receive d Time (Source) Location / / Volume Laterality Blood specimen 08/07/2019 6:54 AM 019 7:08 (specimen) EST AM EST Resulting Agency Comment Spec In Lab Lance Saab MD HEMATOLOGY ORDERABLES Performing Organization Address City/State/ZIP Code Phon e Number [address] APTT (08/07/2019 6:54 AM EST) P athologist Signature PTT 30 25 - 37 sec [facility] Comment: The PTT is NOT appropriate for heparin m onitoring. Use the Anti-Xa level for heparin monitoring (HEP UFH) or LMWH mon itoring (HEP LMW). A PTT less than 37 seconds generally indicates adequate hem ostasis. Specimen Anatomical Collection Method Collection Time Receive d Time (Source) Location / / Volume Laterality Blood specimen 08/07/2019 6:54 AM 019 7:08 (specimen) EST AM EST Resulting Agency Comment Spec In Lab Jameel Garcia Jr., MD HEMATOLOGY ORDERABLES Performing Organization Address City/[facility] Phon e Number [address] (ABNORMAL) Prothrombin Time (08/07/2019 6:54 AM EST) athologist Signature PT 12.6 (H) 9.4 - 12.5 [facility] LABORATORY INR 1.1 [facility] Comment: An INR <2.0 indicates adequate procoagul ant activity for hemostasis in most patients without underlying bleeding dis orders, though the INR may not adequately reflect hemostatic capacity i n patients with liver disease and synthetic impairment. The recommended ta rget INR range for therapeutic anticoagulation is 2.0 ? 3.0 for most applications, though lower and higher ranges may be appropriate depending on c linical circumstances. Specimen Anatomical Collection Method Collection Time Receive d Time (Source) Location / / Volume Laterality Blood specimen 08/07/2019 6:54 AM 019 7:08 (specimen) EST AM EST Resulting Agency Comment Spec In Lab Jameel Garcia Jr., MD HEMATOLOGY ORDERABLES Performing Organization Address City/[facility]/ZIP [facility] [place] [address] Hepatic Function Panel (08/07/2019 6:54 AM EST) athologist Signature Total Protein 6.6 6.1 - 8.0 [facility] gm/dL [facility] Albumin 3.8 3.2 - 5.2 [facility] [place] gm/dL [facility] AST 23 0 - 39 [facility] [place] unit/L [facility] ALT 20 0 - 55 [facility] unit/L [facility] Alk Phos 92 40 - 130 [facility] [place] unit/L [facility] Total 1.3 0.2 - 1.3 [facility] Bilirubin mg/dL [facility] LAB[facility] Bili, Direct 0.2 0.0 - 0.3 [facility] [place] mg/dL [facility] LABORATORY Specimen Anatomical Collection Method Collection Time Receive d Time (Source) Location / / Volume Laterality Blood specimen 08/07/2019 6:54 AM 019 7:08 (specimen) EST AM EST Resulting Agency Comment Spec In Lab Jameel Garcia Jr., MD CHEMISTRY ORDERABLES Performing Organization Address City/[facility]/ZIP Code Phon e Number [address] Phosphorus (08/07/2019 6:54 AM EST) P athologist Signature Phosphorus 2.9 2.5 - 4.5 [facility] [place] mg/dL [facility] LABORATORY Specimen Anatomical Collection Method Collection Time Receive d Time (Source) Location / / Volume Laterality Blood specimen 08/07/2019 6:54 AM 019 7:08 (specimen) EST AM EST Resulting Agency Comment Spec In Lab Jameel Garcia Jr., MD CHEMISTRY ORDERABLES Performing Organization Address City/[facility]/ZIP Code Phon e Number [address] (ABNORMAL) Magnesium (08/07/2019 6:54 AM EST) P athologist Signature Magnesium 0.66 (L) 0.69 - 1.07 [facility] [place] mmol/L [facility] LABORATORY Specimen Anatomical Collection Method Collection Time Receive d Time (Source) Location / / Volume Laterality Blood specimen 08/07/2019 6:54 AM 019 7:08 (specimen) EST AM EST Resulting Agency Comment Spec In Lab Jameel Garcia Jr., MD CHEMISTRY ORDERABLES Performing Organization Address City/State/[place] [address] Triglyceride (08/07/2019 6:54 AM EST) P athologist Signature Triglycerides 121 mg/dL [facility] Comment: Average Risk/Lower Risk: <150 mg/dL Borderline High Risk: 150-199 mg/dL High Risk: 200-499 mg/dL Very High Risk: >vo=236 mg/dL Specimen Anatomical Collection Method Collection Time Receive d Time (Source) Location / / Volume Laterality Blood specimen 08/07/2019 6:54 AM 019 7:08 (specimen) EST AM EST Resulting Agency Comment Spec In Lab Jameel Garcia Jr., MD CHEMISTRY ORDERABLES Performing Organization Address City/State/[place] [address] HDL/Cholesterol Profile (08/07/2019 6:54 AM EST) athologist Signature Chol, Total 138 mg/dL [facility] Comment: Lower Risk: <200 mg/dL Average Risk: 200-239 mg/dL Higher Risk: >an=967 mg/dL HDL 36 mg/dL [facility] LAB[facility] Comment: Males: ?? Higher Risk: <40 mg/dL Females: ?? HIgher Risk: <50 mg/dL Chol/HDL Ratio 3.8 ratio [facility] Chol/HDL Interpretation See Note [facility] LABOR[facility]ORY Comment: Lipid management should be guided by a p atient? s ASCVD risk, goals and preferences. ACC/AHA Guidelines recommend high intens ity statin if clinical ASCVD or LDL greater than or equal to 190 mg/dL. http://[employer]/WED-ODA-Krjzdnqce Measure LDL if Total Cholesterol minus H DL Cholesterol is greater than 220 mg/dL. Adults aged 40-75 with LDL 70-189 mg/dL should have their 10 year ASCVD risk estimated with the ACC/AHA ASCVD risk es timator http://tools.acc.org/KVTDF-Rbci-Txcmbvfn r/ Statin should be discussed if risk great er than or equal to 7.5% in non-diabetics. With diabetes, moderate i ntensity statin is recommended if risk less than 7.5%, high intensity if risk g reater than or equal to 7.5%. Annual lipid monitoring on statins is no t necessary. Lifestyle modification is a critical com ponent of ASCVD risk reduction. Specimen Anatomical Collection Method Collection Time Receive d Time (Source) Location / / Volume Laterality Blood specimen 08/07/2019 6:54 AM 019 7:08 (specimen) EST AM EST Resulting Agency Comment Spec In Lab Jameel Garcia Jr., MD CHEMISTRY ORDERABLES Performing Organization Address City/[facility]/ZIP Code Phon e Number [address] LDL Cholesterol, Direct (08/07/2019 6:54 AM EST) athologist Signature LDL Chol 92 mg/dL [facility] LABORATORY Comment: Lowest Risk: <100 mg/dL Lower Risk: 100-129 mg/dL Borderline High Risk: 130-159 mg/dL High Risk: 160-189 mg/dL Very High Risk: >ss=079 mg/dL Specimen Anatomical Collection Method Collection Time Receive d Time (Source) Location / / Volume Laterality Blood specimen 08/07/2019 6:54 AM 019 7:08 (specimen) EST AM EST Resulting Agency Comment Spec In Lab Jameel Garcia Jr., MD CHEMISTRY ORDERABLES Performing Organization Address City/[facility]/ZIP Code Phon e Number [address] Hemoglobin A1c (08/07/2019 6:54 AM EST) P athologist Signature Hemoglobin A1C 5.5 4.3 - 5.6 [facility] LABORATORY Comment: Reference Range: 4.3 - [...] Mellitus, Diabetes Care 2013; 36: Suppl. 1, H92-07 Est Avg Gluc 111 mg/dL [facility] LAB[facility] Comment: eAG equivalents for HbA1c percentages: HbA1c(%) ?eAG(mg/dL) 6.0 ?126 6.5 ?140 7.0 ?154 7.5 ?169 8.0 ?183 8.5 ?197 9.0 ?212 9.5 ?226 10.0 ? 240 Limitations: The eAG calculation has not been validated on women, individuals below 18 years old and above 70 years old, and individuals with hemoglobinopathies. Additional resources are available on [facility] ADA website. Edinson GRISSOM, Nathaniel J, Ari R, et al. ??Tr anslating the A1C assay into estimated average glucose values. ??Diabetes Care 2008:31(8):7862-6039. Specimen Anatomical Collection Method Collection Time Receive d Time (Source) Location / / Volume Laterality Blood specimen 08/07/2019 6:54 AM 019 7:08 (specimen) EST AM EST Resulting Agency Comment Spec In Lab Jameel Garcia Jr., MD CHEMISTRY ORDERABLES Performing Organization Address City/State/ZIP Code Phon e Number [place] [id number] HOSPITAL LABORATORY Drive EKG 12 Lead (08/06/2019 8:13 PM EST) Component Value Ref Range Test Analysis Performed Pathologis t Method Time At Signature Ventricular rate 69 BPM MUSE SYSTEM Atrial Rate 69 BPM MUSE SYSTEM P-R Interval 162 ms MUSE SYSTEM QRS Duration 90 ms MUSE SYSTEM Q-T Interval 388 ms MUSE SYSTEM QTC Calculated 415 ms MUSE SYSTEM (Bezet) Calculated P [place] 76 degrees MUSE SYSTEM Calculated R [place] 78 degrees MUSE SYSTEM Calculated T [place] 33 degrees MUSE SYSTEM INTERPRETATION Normal sinus rhythm MUSE SYSTEM Normal ECG When compared with ECG of 04-JAN-2019 10:18, No significant change was found Confirmed by MD Devin, Sherley Vee ([id number]) on 08/07/2019 8:21: 27 PM Specimen Anatomical Collection Method Collection Time Receive d Time (Source) Location / / Volume Laterality 08/06/2019 8:13 PM 9 8:21 EST PM EST Jameel Garcia Jr., MD ECG ORDERABLES Performing Organization Address City/State/ZIP Code Phon e Number MUSE SYSTEM MRI Brain wo Contrast (08/06/2019 5:00 PM EST) Anatomical Region Laterality Modality Head Magnetic Resonance Specimen (Source) Anatomical Location Collection Method / Collectio n Time Received Time / Laterality Volume Impressions 08/06/2019 5:40 PM EST No acute infarctions. Thank you for letting us participate in the care of this patient. For questions regarding this report, please contact e number below. ? Narrative 08/06/2019 5:40 PM EST EXAMINATION: MRI BRAIN WO CONTRAST CLINICAL HISTORY: TIA, initial exam Patient with history of stroke at the ag e of 11 (right hemispheric with left sided deficits that have nearly resolved ) who presents with new onset left sided deficits and difficulty swallowing which have mostly resolved at this time TECHNIQUE: MRI of the brain performed without intra venous contrast administration. COMPARISON: CT head and angiogram of the head and ne ck performed earlier in the day. Performed earlier in the day. FINDINGS: Examination is marred by patient motion. No intracranial masses, mass effect or extra-axial collections. Ventricles are normal size and configuration. Midline structures are unremarkable. No diffusio n-weighted abnormalities. No significant small vessel ischemic disease. Paranasal sinuses are clear. Proximal intracranial flow voids are unremarkable . Procedure Note Iraj Wood MD - 08/06/2019Formatti ng of this note might be different from the original. EXAMINATION: MRI BRAIN WO CONTRAST CLINICAL HISTORY: TIA, initial exam Patient with history of stroke at the ag e of 11 (right hemispheric with left sided deficits that have nearly resolved ) who presents with new onset left sided deficits and difficulty swallowing which have mostly resolved at this time TECHNIQUE: MRI of the brain performed without intra venous contrast administration. COMPARISON: CT head and angiogram of the head and ne ck performed earlier in the day. Performed earlier in the day. FINDINGS: Examination is marred by patient motion. No intracranial masses, mass effect or extra-axial collections. Ventricles are normal size and configuration. Midline structures are unremarkable. No diffusio n-weighted abnormalities. No significant small vessel ischemic disease. Paranasal sinuses are clear. Proximal intracranial flow voids are unremarkable . IMPRESSION No acute infarctions. Thank you for letting us participate in the care of this patient. For questions regarding this report, please contact e number below. 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 - Primary TIA (transient ischemic attack) Unspecified transient cerebral ischemia Stroke-like symptoms Other symptoms involving nervous and mus culoskeletal systems documented in this encounter Admitting Diagnoses Diagnosis TIA (transient ischemic attack) Unspecified transient cerebral ischemia documented in this encounter Administered Medications Inactive Administered Medications - up to 3 most recent administrations Medication Order MAR Action Action Date Dose Rate Site acetaminophen (Tylenol) (32.02 mg/mL) or al liquid 975 mg 975 mg, Per G Tube, EVERY 6 HOURS PRN, S tarting on 08/06/19 at 1957, Until 08/07/19 at 1330, Pain, Fever, pain or temperature grea ter than 100 degrees F (measured by mouth), Should be given concomitantly if other Analgesics are ordered., Routine acetaminophen (TYLENOL) suppository 975 mg 975 mg, Rectal, EVERY 6 HOURS PRN, Starting on 08/06/19 at 1957, Until 08/07/19 at 1330, Pain, Fever, pain or temperature grea ter than 100 degrees F (measured by mouth), Maximum dose of oliverio taminophen is 4000 mg from all sources in 24 hours., Routine acetaminophen (TYLENOL) tablet 975 mg 975 mg, Oral, EVERY 6 HOURS PRN, Startin g on 08/06/19 at 1957, Until 08/07/19 at 1330, Pain, Fever, pain or temperatur e greater than 100 degrees F (measured by mouth), Maximum dose of acetaminophen is 4000 mg from all sources in 24 hours., Routine aspirin chewable tablet 81 mg Given 08/07/2019 8:29 AM EST 81 mg 81 mg, Oral, DAILY, First dose on 08/07/19 at 0900, Until Discontinued, Routine clopidogrel (PLAVIX) tablet 75 mg Given 08/07/2019 8:29 AM EST 75 mg 75 mg, Oral, DAILY, First dose on 08/07/19 at 0900, Until Discontinued, Routine fexofenadine (BECKY) tablet 60 mg Given 08/07/2019 8:29 AM EST 60 mg 60 mg, Oral, DAILY, First dose on 08/07/19 at 0900, Until Discontinued, Routine gabapentin (NEURONTIN) capsule 300 mg Given 08/07/2019 8:29 AM EST 300 mg 300 mg, Oral, EVERY MORNING, First dose on 08/07/19 at 0900, Until Discontinued, Routine gabapentin (NEURONTIN) capsule 900 mg Given 08/06/2019 10:19 PM EST 900 mg 900 mg, Oral, NIGHTLY, First dose on 08/06/19 at 2100, Until Discontinued, Routine lisinopril (PRINIVIL;ZESTRIL) tablet 30 mg Given 08/07/2019 10:29 AM EST 30 mg 30 mg, Oral, 2 TIMES DAILY, First dose on 08/07/19 at 0900, Until Discontinued, Routine LORazepam (ATIVAN) injection 1 mg Given 08/06/2019 3:50 PM EST 1 mg 1 mg, Intravenous, ONCE, 1 dose, On 08/06/19 at 1545, Routine mycophenolate (CELLCEPT) capsule 500 mg Given 08/07/2019 8:29 AM EST 500 mg 500 mg, Oral, 2 TIMES DAILY, First dose on 08/06/19 at 1900, Until Discontinued, DO NOT CRUSH OR OPEN Administer to patient on empty stomach (1 hour before or two hours after a meal)., Routine Given 08/06/2019 10:21 PM EST 500 mg mycophenolate (CELLCEPT) capsule 500 mg Given 08/06/2019 12:55 PM EST 500 mg 500 mg, Oral, ONCE, 1 dose, On 08/06/19 at 1255, DO NOT CRUSH OR OPEN Administer to patient on empty stomach (1 hour before or two hours after a meal)., Routine pantoprazole (PROTONIX) tablet 40 mg Given 08/07/2019 8:29 AM EST 40 mg 40 mg, Oral, 2 TIMES DAILY, First dose on 08/06/19 at 2100, Until Discontinued, DO NOT CRUSH OR OPEN, Routine Given 08/06/2019 10:20 PM EST 40 mg sodium chloride 0.9 % (flush) flush 5 mL Given 08/07/2019 8:43 AM EST 5 mLs 5 mL, Intravenous, 2 TIMES DAILY, First dose on 08/06/19 at 2100, Until Discontinued, Routine Given 08/06/2019 10:22 PM EST 5 mLs sodium chloride 0.9 % (flush) flush 5 mL Given 08/07/2019 8:42 AM EST 5 mLs 5 mL, Intravenous, 2 TIMES DAILY, First dose on 08/06/19 at 2100, Until Discontinued, Routine Given 08/06/2019 10:22 PM EST 5 mLs sodium chloride 0.9% 500 mL IV bolus New Bag 08/06/2019 2:33 PM EST 1000 mL/hr at 1,000 mL/hr, Intravenous, ONCE, 1 dose, On 08/06/19 at 1433 sodium chloride 0.9% infusion New Bag 08/06/2019 2:01 PM EST 100 mL/hr 100 mL/hr 100 mL/hr, Intravenous, CONTINUOUS, Starting on 08/06/19 at 1401, Until 08/07/19 at 1330 tacrolimus (PROGRAF) capsule 2 mg Given 08/07/2019 8:42 AM EST 2 mg 2 mg, Oral, 2 TIMES DAILY, First dose on 08/06/19 at 1200, Until Discontinued, Routine Given 08/06/2019 10:20 PM EST 2 mg Given 08/06/2019 12:14 PM EST 2 mg traZODone (DESYREL) tablet 50 mg Given 08/06/2019 10:19 PM EST 50 mg 50 mg, Oral, NIGHTLY, First dose on 08/06/19 at 2100, Until Discontinued, Routine documented in this encounter Active and Recently Administered Medications Times are shown in EST. Scheduled Medication Order 08/05/2019 08/06/2019 08/07/2019 aspirin chewable tablet 81 mg 08 (Given - Provider: Sabrina Mccormack) 81 mg, Oral, DAILY, First dose on Sun at 0900, Until Discontinued, Routine clopidogrel (PLAVIX) tablet 75 mg 08 (Given - Provider: Sabrina Mccormack) 75 mg, Oral, DAILY, First dose on Sun at 0900, Until Discontinued, Routine enoxaparin (LOVENOX) injection 40 mg 40 mg, Subcutaneous, NIGHTLY, First dose on 08/07/19 at 2100, Until Discontinued, Routine fexofenadine (BECKY) tablet 60 mg 828 (Given - Provider: Sabrina Mccormack) 60 mg, Oral, DAILY, First dose on Sun at 0900, Until Discontinued, Routine gabapentin (NEURONTIN) capsule 300 mg 828 (Given - Provider: Sabrina Mccormack) 300 mg, Oral, EVERY MORNING, First dose on 08/07/19 at 0900, Until Discontinued, Routine gabapentin (NEURONTIN) capsule 900 mg (Given - Provider: Eriberto Beltrán RN) 900 mg, Oral, NIGHTLY, First dose on 08/06/19 at 2100, Until Discontinued, Routine lisinopril (PRINIVIL;ZESTRIL) tablet 30 mg 1029 (Given - Provider: Sabrina Mccormack) 30 mg, Oral, 2 TIMES DAILY, First dose o n 08/07/19 at 0900, Until Discontinued, Routine LORazepam (ATIVAN) injection 1 mg (COMPLETED) 1550 (Given - Provider: Ni Bianchi RN) 1 mg, Intravenous, ONCE, 1 dose, 08/06/19 at 1545, Routine mycophenolate (CELLCEPT) capsule 500 mg 222 (Given - Provider: Eriberto Beltrán, MIGUELITO) 08 (Given - Provider: Sabrina Mccormack) 500 mg, Oral, 2 TIMES DAILY, First dose on 08/06/19 at 1900, Until Discontinued, DO NOT CRUSH OR OPEN Administer to patient on empty stomach (1 hour before or two hours after a meal)., Routine mycophenolate (CELLCEPT) capsule 500 mg (COMPLETED) 1255 (Given - Provider: Ni Bianchi, RN) 500 mg, Oral, ONCE, 1 dose, 08/06/19 at 1255, DO NOT CRUSH OR OPEN Administer to patient on empty stomach (1 hour before or two hours after a meal)., Routine pantoprazole (PROTONIX) tablet 40 mg 222 0 (Given - Provider: Eriberto Beltrán RN) 0829 (Given - Provider: Sabrina Mccormack) 40 mg, Oral, 2 TIMES DAILY, First dose o n 08/06/19 at 2100, Until Discontinued, DO NOT CRUSH OR OPEN, Routine polyethylene glycol (MIRALAX) packet 17 g 2014 (Not Given - Provider: Eriberto Beltrán RN - Reason: Patient/family refused) 08 (Not Given - Provider: Sabrina Mccormack - Reason: Patient/family refused) 17 g, Oral, DAILY, First dose on 08/06/19 at 2014, Until Discontinued, Routine senna-docusate (PERICOLACE) 8.6-50 mg per tablet 2 tablet 2099 (Not Given - Provider: Eriberto Beltrán, MIGUELITO - Reason: Patient/family refused) 08 (Not Given - Provider: Sabrina Mccormack - Reason: Patient/family refused) 2 tablet, Oral, 2 TIMES DAILY, First dos e on 08/06/19 at 2100, Until Discontinued, Administer to achieve 1 soft bowel movement daily without straining, Routine sodium chloride 0.9 % (flush) flush 5 mL 2222 (Given - Provider: Eriberto Beltrán RN) 0843 (Given - Provider: Sabrina Mccormack) 5 mL, Intravenous, 2 TIMES DAILY, First dose on 08/06/19 at 2100, Until Discontinued, Routine sodium chloride 0.9 % (flush) flush 5 mL 2222 (Given - Provider: Eriberto Beltrán RN) 0842 (Given - Provider: Sabrina Mccormack) 5 mL, Intravenous, 2 TIMES DAILY, First dose on 08/06/19 at 2100, Until Discontinued, Routine sodium chloride 0.9% 500 mL IV bolus (COMPLETED) 1433 (New Bag - Provider: Ni R Arias, RN)1503 (Due: Stopped - Provider: Ni Bianchi RN) at 1,000 mL/hr, Intravenous, ONCE, 1 dose, 08/06/19 at 1433 tacrolimus (PROGRAF) capsule 2 mg 1214 ( Given - Provider: Ni Bianchi RN)2220 (Given - Provider: Eriberto Beltrán, MIGUELITO) 0842 (Given - Provider: Sabrina Mccormack) 2 mg, Oral, 2 TIMES DAILY, First dose on 08/06/19 at 1200, Until Discontinued, Routine traZODone (DESYREL) tablet 50 mg 9 (G iven - Provider: Eriberto Beltrán, RN) 50 mg, Oral, NIGHTLY, First dose on 08/06/19 at 2100, Until Discontinued, Routine Continuous Medication Order 08/05/2019 08/06/2019 08/07/2019 sodium chloride 0.9% infusion 1401 (New Bag - Pr ovider: Ni Bianchi RN) 100 mL/hr, at 100 mL/hr, Intravenous, CO NTINUOUS, Starting 08/06/19 at 1401, Until 08/07/19 at 1330 PRN Medication Order 08/05/2019 08/06/2019 08/07/2019 acetaminophen (Tylenol) (32.02 mg/mL) oral liquid 975 mg(Linked Group 1) 975 mg, Per G Tube, EVERY 6 HOURS PRN, S tarting 08/06/19 at 1957, Until 08/07/19 at 1330, Pain, Fever, pain or temperature greater than 100 degrees F (measured by mouth), Should be given concomitantly if other Analgesics are ordered., Routine acetaminophen (TYLENOL) suppository 975 mg(Linked Group 1) 975 mg, Rectal, EVERY 6 HOURS PRN, Start ing 08/06/19 at 1957, Until 08/07/19 at 1330, Pain, Fever, pain or temperature greater than 100 degrees F (measured by mouth), Maximum dose of acetaminophen is 4000 mg from all sources in 24 hours., Routine acetaminophen (TYLENOL) tablet 975 mg(Linked Group 1) 975 mg, Oral, EVERY 6 HOURS PRN, Startin g 08/06/19 at 1957, Until 08/07/19 at 1330, Pain, Fever, pain or temperature greater than 100 degrees F (measured by mouth), Maximum dose of acetaminophen is 4000 mg from all sources in 24 hours., Routine bisacodyl (DULCOLAX) suppository 10 mg 10 mg, Rectal, DAILY PRN, Starting Sat 1 10/07/18 at 1957, Until 08/07/19 at 1330, Constipation, Administer if needed per patient's routine or if no bowel movement within 48 hours to achieve: (1) One tory wel movement at least every 48 hours, AN D (2) Without straining. If multiple PRN bowel medications ordered, start with magnesium hydroxide, then bisacodyl. Multiple medications may be given concomitantly for constipation., Routine enalaprilat (VASOTEC) injection 1.25 mg, Intravenous, EVERY 6 HOURS PRN, Starting 08/06/19 at 1957, Until 08/07/19 at 1330, hypertension , Systolic blood pressure (SBP) goal Less Than 220 mmHg. Administer if inadequate blood pre ssure control in 30 minutes despite Labe tolol or when SBP is greater than 220 mmHg or diastolic blood pressure (DBP) greater than 110 mmHg. Note: enalaprilat can be given with labetalol or nicardipine., Routine labetalol (NORMODYNE,TRANDATE) injection 10-20 mg 10-20 mg, Intravenous, EVERY 15 MIN PRN, Starting 08/06/19 at 1957, Until 08/07/19 at 1330, High Blood Pressure, - Systolic blood pressure (SBP) goal Less Than 220 mmHg. Start with 10 mg/dose ever y 15 minutes, If inadequate effect with 10 mg/dose then increase to 20 mg/dose for subsequent dosing. - Do not exceed 300 mg per day. - Repeat every 15 minutes for SBP greater than 220 mmHg. - Hold if p ulse is less than 50 beats per minute. * *If Labetalol does not satisfactorily control BP within 30 minutes, consider enalaprilat or niCARdipine., Routine lidocaine (XYLOCAINE) 10 mg/mL (1 %) injection 3 mg 3 mg (0.3 mL), Subcutaneous, ONCE PRN, 1 dose, Starting 08/06/19 at 1957, Until 08/07/19 at 1330, for discomfort with PIV insertion, Routine lidocaine (XYLOCAINE) 10 mg/mL (1 %) injection 3 mg 3 mg (0.3 mL), Subcutaneous, ONCE PRN, 1 dose, Starting 08/06/19 at 1957, Until 08/07/19 at 1330, for discomfort with PIV insertion, Routine LORazepam (ATIVAN) injection 1 mg 1 mg, Intravenous, ONCE PRN, 1 dose, Sta rting 08/06/19 at 1957, Until 08/07/19 at 1330, Anxiety, Prior to MRI, Routine magnesium hydroxide (Milk of Magnesia) (240 mg/mL) oral liquid 1 0 mL 10 mL, Oral, NIGHTLY PRN, Starting Sat 1 10/07/18 at 1957, Until 08/07/19 at 1330, Constipation, Administer if needed per patient's routine or if no bowel movement within 48 hours to achieve: (1) One tory wel movement at least every 48 hours, AN D (2) Without straining. If multiple PRN bowel medications ordered, start with magnesium hydroxide, then bisacodyl. Multiple medications may be given concomitantly for constipation., Routine ondansetron (ZOFRAN) tablet 8 mg 8 mg, Oral, EVERY 8 HOURS PRN, Starting 08/06/19 at 1957, Until 08/07/19 at 1330, Nausea, Routine sodium chloride 0.9 % (flush) flush 5-20 mL 5-20 mL, Intravenous, EVERY 1 MIN PRN, S tarting 08/06/19 at 1957, Until Sun 12 at 1330, flush, Flush pertains to all indwelling lines. Flush per protocol found in the job aid using the link provided on this medication record., Routine sodium chloride 0.9 % (flush) flush 5-20 mL 5-20 mL, Intravenous, EVERY 1 MIN PRN, S tarting 08/06/19 at 1957, Until 08/07/19 at 1330, flush, Flush pertains to all indwelling lines. Flush per protocol found in the job aid using the link provided on this medication record., Routine Linked Groups Order Group 1: acetaminophen (TYLENOL) tablet 975 mgJump to med 975 mg, Oral, EVERY 6 HOURS PRN, Startin g 08/06/19 at 1957, Until 08/07/19 at 1330, Pain, Fever, pain or temperature greater than 100 degrees F (measured by mouth)
Maximum dose of acetami nophen is 4000 mg from all sources in 24 hours.
Routine Or acetaminophen (Tylenol) (32.02 mg/mL) oral liquid 975 mgJump to med 975 mg, Per G Tube, EVERY 6 HOURS PRN, S tarting 08/06/19 at 1957, Until 08/07/19 at 1330, Pain, Fever, pain or temperature greater than 100 degrees F (measured by mouth)
Should be given c oncomitantly if other Analgesics are ord ered.
Routine Or acetaminophen (TYLENOL) suppository 975 mgJump to med 975 mg, Rectal, EVERY 6 HOURS PRN, Start ing 08/06/19 at 1957, Until 08/07/19 at 1330, Pain, Fever, pain or temperature greater than 100 degrees F (measured by mouth)
Maximum dose of aceta minophen is 4000 mg from all sources in 24 hours.
Routine documented in this encounter Care Teams [employer] Relationship Specialty Start Date End Date Anna Mullen MD PCP - General 12/03/10 [address] [place] [address] documented as of this encounter
--- OUTSIDE RECORDS SUMMARY | 2022-03-13 18:26 | XMS_ITS | Encounter Summary ---
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 Immunosuppression HC PROTEIN, STAT 08/17/2019 10:05 Aftercare following Resu lts for this QUANTITATIVE, URINE AM EST organ transp lant procedure are in Pancreas replaced the result s by transplant section. Immunosuppression HC PHOSPHORUS, URINE STAT 08/17/2019 10:05 Aftercare follow ing Results for this AM EST organ transplant procedure are in Pancreas replaced the result s by transplant section. Immunosuppression HC MAGNESIUM, URINE STAT 08/17/2019 10:05 Aftercare followi ng Results for this AM EST organ transplant procedure are in Pancreas replaced the result s by transplant section. Immunosuppression HC CREATININE - NON STAT 08/17/2019 10:05 Aftercare followi ng Results for this BLOOD AM EST organ transplant procedure are in Pancreas replaced the result s by transplant section. Immunosuppression URINALYSIS WITH REFLEX STAT 08/17/2019 10:05 Aftercare foll owing Results for this CULTURE AM EST organ transplant procedure are in Pancreas replaced the result s by transplant section. Immunosuppression HC PARATHYROID STAT 08/17/2019 9:54 AM Aftercare following Results for this HORMONE(PTH INTACT EST organ transpl ant procedure are in Pancreas replaced the result s by transplant section. Immunosuppression HC BK VIRUS QUANT STAT 08/17/2019 9:54 AM Aftercare followi ng Results for this PCR,PLASMA EST organ transplant procedure are in Pancreas replaced the result s by transplant section. Immunosuppression HEMOGRAM STAT 08/17/2019 9:54 AM Aftercare following Re sults for this EST organ transplant procedure are in Pancreas replaced the result s by transplant section. Immunosuppression DIFFERENTIAL, STAT 08/17/2019 9:54 AM Aftercare following R esults for this AUTOMATED EST organ transplant procedure are in Pancreas replaced the result s by transplant section. Immunosuppression GOLD TUBE HOLD STAT 08/17/2019 9:54 AM Aftercare following Results for this EST organ transplant procedure are in Pancreas replaced the result s by transplant section. Immunosuppression LAVENDER TUBE HOLD STAT 08/17/2019 9:54 AM Aftercare follow ing Results for this EST organ transplant procedure are in Pancreas replaced the result s by transplant section. Immunosuppression HC FK-506 (TACROLIMUS) STAT 08/17/2019 9:54 AM Aftercare fo llowing Results for this EST organ transplant procedure are in Pancreas replaced the result s by transplant section. Immunosuppression HC PCH 1,25 DI-OH VIT. STAT 08/17/2019 9:54 AM Aftercare fo llowing Results for this EST organ transplant procedure are in Pancreas replaced the result s by transplant section. Immunosuppression HC VITAMIN D TOTAL-25 STAT 08/17/2019 9:54 AM Aftercare fol lowing Results for this HYDROXY EST organ transplant procedure are in Pancreas replaced the result s by transplant section. Immunosuppression HC C PEPTIDE STAT 08/17/2019 9:54 AM Aftercare following Re sults for this EST organ transplant procedure are in Pancreas replaced the result s by transplant section. Immunosuppression HC RETIC,AUTO INCLUDES STAT 08/17/2019 9:54 AM Aftercare fo llowing Results for this RETHE & IRF EST organ transplant procedure are in Pancreas replaced the result s by transplant section. Immunosuppression HC CBC,PLT & AUTO DIFF STAT 08/17/2019 9:54 AM Aftercare fo llowing EST organ transplant 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 Immunosuppression HC URIC ACID, SERUM STAT 08/17/2019 9:54 AM Aftercare follo wing Results for this EST organ transplant procedure are in Pancreas replaced the result s by transplant section. Immunosuppression HC PHOSPHORUS, SERUM STAT 08/17/2019 9:54 AM Aftercare foll owing Results for this EST organ transplant procedure are in Pancreas replaced the result s by transplant section. Immunosuppression HC MAGNESIUM, SERUM STAT 08/17/2019 9:54 AM Aftercare follo wing Results for this EST organ transplant procedure are in Pancreas replaced the result s by transplant section. Immunosuppression HC LIPASE STAT 08/17/2019 9:54 AM Aftercare following Re sults for this EST organ transplant procedure are in Pancreas replaced the result s by transplant section. Immunosuppression HC HEMOGLOBIN A1C STAT 08/17/2019 9:54 AM Aftercare followi ng Results for this EST organ transplant procedure are in Pancreas replaced the result s by transplant section. Immunosuppression HC AMYLASE STAT 08/17/2019 9:54 AM Aftercare following Re sults for this EST organ transplant procedure are in Pancreas replaced the result s by transplant section. Immunosuppression LIPID PANEL (REFLEX STAT 08/17/2019 9:54 AM Aftercare follo wing Results for this DIRECT LDL) EST organ transplant procedure are in Pancreas replaced the result s by transplant section. Immunosuppression COMPREHENSIVE STAT 08/17/2019 9:54 AM Aftercare following R esults for this METABOLIC PANEL EST organ transplant procedure are in (NON-FASTING) Pancreas replaced the resul ts by transplant section. Immunosuppression documented in this encounter Results Magnesium, urine, random (08/17/2019 10:05 AM EST) P athologist Signature U Mg Ran 0.83 mmol/L [facility] Specimen Anatomical Collection Method Collection Time Receive d Time (Source) Location / / Volume Laterality Urine specimen 08/17/2019 10:05 9 (specimen) AM EST 10:12 AM EST Resulting Agency Comment Spec In Lab Eriberto Melgar MD URINE ORDERABLES Performing Organization Address City/State/ZIP Code Phon e Number [address] Phosphorus, urine, random (08/17/2019 10:05 AM EST) P athologist Signature U Phosphorus 18.1 mg/dL [facility] Specimen Anatomical Collection Method Collection Time Receive d Time (Source) Location / / Volume Laterality Urine specimen 08/17/2019 10:05 9 (specimen) AM EST 10:12 AM EST Resulting Agency Comment Spec In Lab Eriberto Melgar MD URINE ORDERABLES Performing Organization Address City/[facility]/ZIP Code Phon e Number [address] Calcium Creatinine Ratio, random urine (08/17/2019 10:05 AM EST) P athologist Signature U Calcium 1.7 mg/dL [facility] U Creatinine 35 mg/dL [facility] Ca/Cre Ratio 0.05 ratio [facility] Specimen Anatomical Collection Method Collection Time Receive d Time (Source) Location / / Volume Laterality Urine specimen 08/17/2019 10:05 9 (specimen) AM EST 10:12 AM EST Resulting Agency Comment Spec In Lab Eriberto Melgar MD URINE ORDERABLES Performing Organization Address City/[facility]/ZIP Code Phon e Number [address] Creatinine, urine, random (08/17/2019 10:05 AM EST) P athologist Signature U Creatinine 35 mg/dL [facility] Specimen Anatomical Collection Method Collection Time Receive d Time (Source) Location / / Volume Laterality Urine specimen 08/17/2019 10:05 9 (specimen) AM EST 10:12 AM EST Resulting Agency Comment Spec In Lab Eriberto Melgar MD URINE ORDERABLES Performing Organization Address City/State/[place] [address] Protein/Creatinine Ratio, urine (08/17/2019 10:05 AM EST) P athologist Signature U Creatinine 35 mg/dL [facility] U Protein Ran <6 0 - 12 [facility] mg/dL [facility] Prot/Cre Ratio <0.1 ratio [facility] Specimen Anatomical Collection Method Collection Time Receive d Time (Source) Location / / Volume Laterality Urine specimen 08/17/2019 10:05 9 (specimen) AM EST 10:12 AM EST Resulting Agency Comment Spec In Lab Eriberto Melgar MD URINE ORDERABLES Performing Organization Address City/State/[place] [address] Urinalysis with reflex Culture (08/17/2019 10:05 AM EST) Patholo gist Method Time Signature Glucose UA Negative Negative [facility] mg/dL [facility] Protein UA Negative Negative [facility] mg/dL [facility] Bilirubin UA Negative Negative [facility] mg/dL [facility] Comment: Clinical correlation required for positi ve Urine Bilirubin results as false positive may occur with some drugs and d rug related products. If a false positive is suspected a serum total bili sinha should be considered if clinically indicated. Urobilinogen UA Normal Normal mg/dL [facility] pH UA 6.5 5.0 - 8.0 [facility] Blood UA Negative Negative mg/dL [facility] Ketones UA Negative Negative mg/dL [facility] Nitrite UA Negative Negative [facility] Leukocytes UA Negative Negative [facility] LABORATORY Appearance UA Clear Clear [facility] Spec [place] UA 1.008 1.002 - 1.030 [facility] Color UA Yellow Yellow [facility] Culture Reflexed No [facility] Specimen (Source) Anatomical Collection Method Collection Time Re ceived Time Location / / Volume Laterality Urine specimen 08/17/2019 10:05 9 obtained by clean AM EST 10:[address] catch procedure (specimen) Resulting Agency Comment Spec In Lab Eriberto Melgar MD URINE ORDERABLES Performing Organization Address City/State/[place] [address] (ABNORMAL) Differential, Automated (08/17/2019 9:54 AM EST) [facility] Method Time Signature Neutrophils % 42.1 % [facility] Neutr Abs (ANC) 3.45 1.70 - [facility] 6.10 [facility] x10(3)/[facility] LABORATORY Lymphocytes % 45.7 % [facility] Lymphocytes Abs 3.7 (H) 0.9 - 3.2 [facility] x10(3)/[facility] LABORATORY Monocytes % 7.6 % [facility] Monocyte Abs 0.6 0.3 - 0.9 [facility] x10(3)/[facility] LABORATORY Eosinophils % 3.1 % [facility] Eosinophils Abs 0.2 0.0 - 0.4 [facility] x10(3)/[facility] LABORATORY Basophils % 0.9 % [facility] Basophils Abs 0.1 0.0 - 0.1 [facility] x10(3)/[facility] LABORATORY Immature Gran % 0.60 % [facility] Comment: Immature granulocytes(IG's)percentage an d absolute count will include metamyelocytes, myelocytes, and promyelo cytes. Blood smears from CBCs yielding IG's will be scanned manually for concor dance. If this scan disagrees with the automated IG or if promyelocytes are not ed, a manual differential will be performed. Kym Gran Abs 0.05 (H) 0.00 - 0.04 x10(3)/[facility] LABORATORY Specimen Anatomical Collection Method Collection Time Receive d Time (Source) Location / / Volume Laterality Blood specimen 08/17/2019 9:54 AM 019 (specimen) EST 10:01 AM EST Resulting Agency Comment Spec In Lab Eriberto Melgar MD HEMATOLOGY ORDERABLES Performing Organization Address City/State/ZIP Code Phon e Number [place] [address] Hemogram (08/17/2019 9:54 AM EST) P athologist Signature WBC 8.2 4.0 - 9.5 [facility] x10(3)/[facility] LABORATORY RBC 4.86 4.58 - [facility] 5.54 [facility] x10(6)/[facility] LABORATORY Hemoglobin 14.5 13.7 - [facility] 16.5 gm/dL [facility] Hematocrit 43.4 40.5 - [facility] 48.5 % [facility] MCV 89.3 82.9 - [facility].1 [facility] MCH 29.8 27.5 - [facility] 32.1 pg [facility]ORY MCHC 33.4 32.0 - [facility] 35.7 gm/dL [facility] Platelets 255 145 - 357 [facility] x10(3)/[facility] LABORATORY RDWSD 43.1 36.0 - [facility] 45.0 [facility] LABORATORY RDWCV 13.2 11.4 - [facility] 13.8 % [facility] LABORATORY MPV 10.2 7.6 - 12.9 [facility] LABORATORY nRBC % Auto 0.0 % [facility] nRBC Abs Auto 0.000 0.000 - [facility] 0.000 [facility] x10(3)/[facility] LABORATORY Specimen Anatomical Collection Method Collection Time Receive d Time (Source) Location / / Volume Laterality Blood specimen 08/17/2019 9:54 AM 019 (specimen) EST 10:01 AM EST Resulting Agency Comment Spec In Lab Eriberto Melgar MD HEMATOLOGY ORDERABLES Performing Organization Address City/State/[place] [address] [facility] LAB[address]ORY Drive BKV Quant Blood (08/17/2019 9:54 AM EST) Component Value Ref Test Analysis Performed At Patholo gist Range Method Time Signature BKV Blood Not Detected [facility] LABORATORY BKV Blood BK Virus Plasma Result Interpretation [facility] Result: BK Virus not detected HOSPITAL Specimen type: plasma LABORATO RY Assay Range: 2.80-7.80 log copies/mL (6.28x10^2 - 6.28x10^7 copies/mL) Methods: Quantitative real-time polymerase chain react ion (PCR) of viral DNA isolated from plasma was performed using [employer] BKV analyte-specific reagents and the [employer] System that automates both nucleic a deepak isolation and real-time quantitative PCR. Limitations and Disclaimers: Although un likely, rare variants or polymorphisms in BKV or related viruses have the poten tial to interfere with the performance of this test, producing false negative or false positive results. ??When test results are not consistent with other clinical observa tions or test results, alternative testing may be considered. This test was developed and its performance samina acteristics determined by the [employer] and [employer] [facility] at [facility]. It has not been cleared or approved by the FDA. The laboratory is regulated under CLIA as qualified to perform high-complexity testing. This charles t is used for clinical purposes. It should not be regarded as investigational or fo r research. Comment: [VERIFIED DATE]08.19.19 Verified By:Breann Boogie (Electronic Signature) Specimen Anatomical Collection Method Collection Time Receive d Time (Source) Location / / Volume Laterality Blood specimen 08/17/2019 9:54 AM 019 (specimen) EST 12:25 PM EST Resulting Agency Comment Spec In Lab Eriberto Melgar MD IMMUNOLOGY ORDERABLES Performing Organization Address City/State/[place] [address] Tacrolimus level (08/17/2019 9:54 AM EST) athologist Signature Tacrolimus Lvl 6.0 ng/mL [facility] Comment: Trough therapeutic: ??5-15 ng/mL Performed by ultra-performance liquid ch romatography tandem mass spectrometry (UPLCMS/MS). This test was developed and its performa nce characteristics determined by [facility]. It has not been cleared or approved by the FDA. The laboratory is regulated under CLIA a s qualified to perform high-complexity testing. This test is used for clinical purposes. It should not be regarded as investigational or for research. Specimen Anatomical Collection Method Collection Time Receive d Time (Source) Location / / Volume Laterality Blood specimen 08/17/2019 9:54 AM 019 (specimen) EST 11:18 AM EST Resulting Agency Comment Spec In Lab Eriberto Melgar MD CHEMISTRY ORDERABLES Performing Organization Address City/State/[place] [address] Lavender Tube HOLD (08/17/2019 9:54 AM EST) Patholo gist Method Time Signature Lavender Hold Sample in [facility] LABORATORY Specimen Anatomical Collection Method Collection Time Receive d Time (Source) Location / / Volume Laterality Blood specimen 08/17/2019 9:54 AM 019 (specimen) EST 10:01 AM EST Eriberto Melgar MD HEMATOLOGY ORDERABLES Performing Organization Address City/[facility]/[place] [address] Gold Tube HOLD (08/17/2019 9:54 AM EST) P athologist Signature Gold Hold Sample in [facility] LABORATORY Specimen Anatomical Collection Method Collection Time Receive d Time (Source) Location / / Volume Laterality Blood specimen 08/17/2019 9:54 AM 019 (specimen) EST 10:01 AM EST Eriberto Melgar MD CHEMISTRY ORDERABLES Performing Organization Address City/State/[place] [address] Lipase (08/17/2019 9:54 AM EST) P athologist Signature Lipase 25 0 - 60 [facility] unit/L [facility] Specimen Anatomical Collection Method Collection Time Receive d Time (Source) Location / / Volume Laterality Blood specimen 08/17/2019 9:54 AM 019 (specimen) EST 10:01 AM EST Resulting Agency Comment Spec In Lab Eriberto Melgar MD CHEMISTRY ORDERABLES Performing Organization Address City/State/[place] [address] Amylase (08/17/2019 9:54 AM EST) athologist Signature Amylase 64 28 - 100 [facility] unit/L [facility] Specimen Anatomical Collection Method Collection Time Receive d Time (Source) Location / / Volume Laterality Blood specimen 08/17/2019 9:54 AM 019 (specimen) EST 10:01 AM EST Resulting Agency Comment Spec In Lab Eriberto Melgar MD CHEMISTRY ORDERABLES Performing Organization Address City/State/[place] [address] Hemoglobin A1c (08/17/2019 9:54 AM EST) athologist Signature Hemoglobin A1C 5.4 4.3 - 5.6 [facility] [...] Mellitus, Diabetes Care 2013; 36: Suppl. 1, G17-72 Est Avg Gluc 110 mg/dL [facility] Comment: eAG equivalents for HbA1c percentages: HbA1c(%) ?eAG(mg/dL) 6.0 ?126 6.5 ?140 7.0 ?154 7.5 ?169 8.0 ?183 8.5 ?197 9.0 ?212 9.5 ?226 10.0 ? 240 Limitations: The eAG calculation has not been validated on women, individuals below 18 years old and above 70 years old, and individuals with hemoglobinopathies. Additional resources are available on [facility] ADA website. Edinson GRISSOM, Nathaniel J, Ari R, et al. ??Tr anslating the A1C assay into estimated average glucose values. ??Diabetes Care 2008:31(8):9005-6260. Specimen Anatomical Collection Method Collection Time Receive d Time (Source) Location / / Volume Laterality Blood specimen 08/17/2019 9:54 AM 019 (specimen) EST 10:01 AM EST Resulting Agency Comment Spec In Lab Eriberto Melgar MD CHEMISTRY ORDERABLES Performing Organization Address City/State/[place] [address] Lipid Panel (Reflex Direct LDL) (08/17/2019 9:54 AM EST) athologist Signature Chol, Total 124 mg/dL [facility] Comment: Lower Risk: <200 mg/dL Average Risk: 200-239 mg/dL Higher Risk: >qs=860 mg/dL Triglycerides 139 mg/dL [facility] Comment: Average Risk/Lower Risk: <150 mg/dL Borderline High Risk: 150-199 mg/dL High Risk: 200-499 mg/dL Very High Risk: >qq=871 mg/dL HDL 46 mg/dL [facility] Comment: Males: ?? Higher Risk: <40 mg/dL Females: ?? HIgher Risk: <50 mg/dL LDL Cholesterol 50 mg/dL [facility] Comment: Lowest Risk: <100 mg/dL Lower Risk: 100-129 mg/dL Borderline High Risk: 130-159 mg/dL High Risk: 160-189 mg/dL Very High Risk: >oy=299 mg/dL Chol/HDL Ratio 2.7 ratio [facility] Lipid Interpretation See Note [facility] Comment: Lipid management should be guided by a p atient? s ASCVD risk, goals and preferences. ACC/AHA Guidelines recommend high intens ity statin if clinical ASCVD or LDL greater than or equal to 190 mg/dL. http://Sonru.comurl.com/RHF-UMT-Xyfqrqisx Adults aged 40-75 with LDL 70-189 mg/dL should have their 10 year ASCVD risk estimated with the ACC/AHA ASCVD risk es timator http://tools.acc.org/LZWTA-Dlyg-Lcshevdv r/ Statin should be discussed if risk [...] Location / / Volume Laterality Blood specimen 08/17/2019 9:54 AM 019 (specimen) EST 10:01 AM EST Resulting Agency Comment Spec In Lab Eriberto Melgar MD CHEMISTRY ORDERABLES Performing Organization Address City/State/[place] [address] 1,25-dihydroxycholecalciferol (08/17/2019 9:54 AM EST) P athologist Signature Vit D 1,25 40 18 - 64 [facility] pg/mL [facility] Comment: ADDITIONAL INFORMATIO N This test was developed and its performa nce characteristics determined by [facility] in a manner co nsistent with CLIA requirements. This test has not been gene ared or approved by the U.S. Food and Drug Administration. Test Performed by: [facility] [address] [address] [id number] Project Product Manager: Dung Buenrostro M.D. Ph. D.; CLIA# [id number] Specimen Anatomical Collection Method Collection Time Receive d Time (Source) Location / / Volume Laterality Blood specimen 08/17/2019 9:54 AM 019 (specimen) EST 10:44 AM EST Resulting Agency Comment Spec In Lab Eriberto Melgar MD CHEMISTRY ORDERABLES Performing Organization Address City/[facility]/[place] [address] Vitamin D, 25-Hydroxy (08/17/2019 9:54 AM EST) P athologist Signature 25-OH Vit D 68 30 - 100 [facility] [place] Total ng/mL [facility] Comment: As of 2019, 25-hydroxyvitamin D charles ting has moved from the [employer] to the [employer]. No substantial change in me asured values is expected. Specimen Anatomical Collection Method Collection Time Receive d Time (Source) Location / / Volume Laterality Blood specimen 08/17/2019 9:54 AM 019 (specimen) EST 10:01 AM EST Resulting Agency Comment Spec In Lab Eriberto Melgar MD CHEMISTRY ORDERABLES Performing Organization Address City/[facility]/[place] [address] PTH (08/17/2019 9:54 AM EST) P athologist Signature PTH 64 15 - 65 [facility] [place] pg/mL [facility] Specimen Anatomical Collection Method Collection Time Receive d Time (Source) Location / / Volume Laterality Blood specimen 08/17/2019 9:54 AM 019 (specimen) EST 10:01 AM EST Resulting Agency Comment Spec In Lab Eriberto Melgar MD CHEMISTRY ORDERABLES Performing Organization Address City/State/[place] [address] Uric acid (08/17/2019 9:54 AM EST) P athologist Signature Uric Acid 6.3 3.5 - 8.5 [facility] [place] mg/dL [facility] Specimen Anatomical Collection Method Collection Time Receive d Time (Source) Location / / Volume Laterality Blood specimen 08/17/2019 9:54 AM 019 (specimen) EST 10:01 AM EST Resulting Agency Comment Spec In Lab Eriberto Melgar MD CHEMISTRY ORDERABLES Performing Organization Address City/State/ZIP Code Phon e Number [address] Magnesium (08/17/2019 9:54 AM EST) athologist Signature Magnesium 0.77 0.69 - 1.07 [facility] mmol/L [facility] Specimen Anatomical Collection Method Collection Time Receive d Time (Source) Location / / Volume Laterality Blood specimen 08/17/2019 9:54 AM 019 (specimen) EST 10:01 AM EST Resulting Agency Comment Spec In Lab Eriberto Melgar MD CHEMISTRY ORDERABLES Performing Organization Address City/[facility]/ZIP Code Phon e Number [address] Phosphorus (08/17/2019 9:54 AM EST) athologist Signature Phosphorus 2.7 2.5 - 4.5 [facility] mg/dL [facility] LABORATORY Specimen Anatomical Collection Method Collection Time Receive d Time (Source) Location / / Volume Laterality Blood specimen 08/17/2019 9:54 AM 019 (specimen) EST 10:01 AM EST Resulting Agency Comment Spec In Lab Eriberto Melgar MD CHEMISTRY ORDERABLES Performing Organization Address City/State/[place]IP [place] [address] (ABNORMAL) Comprehensive metabolic panel (non-fasting) (08/17/2019 9:54 AM EST) athologist Signature Glucose Lvl 109 65 - 199 [facility] mg/dL [facility] LABORATORY Comment: Diabetes: >=200 mg/dL plus symp toms BUN 14 10 - 20 mg/dL [facility] Creatinine 1.05 0.80 - 1.50 mg/dL [facility] LABOR[facility] Sodium 133 (L) 135 - 145 mmol/L [facility]OR[facility] Potassium 4.2 3.5 - 5.0 mmol/L [facility] Comment: Please note: ??Patients with WBC >100,00 0 may have falsely elevated Potassium levels. ??For accurate Potassium quantif ication in these patients send serum separator tube (gold top) for subsequent determinations. ??Contact the Clinical Chemistry Laboratory if there are any qu estions. Chloride 97 (L) 98 - 107 mmol/L [facility] CO2 26 22 - 31 mmol/L [facility] Anion Gap 10 5 - 15 mmol/L [facility] Calcium 9.5 8.5 - 10.5 mg/dL [facility] Total Protein 7.5 6.1 - 8.0 gm/dL [facility] Albumin 4.4 3.2 - 5.2 gm/dL [facility] AST 24 0 - 39 unit/L [facility] ALT 22 0 - 55 unit/L [facility] Alk Phos 108 40 - 130 unit/L [facility] Total Bilirubin 0.8 0.2 - 1.3 mg/dL [facility] Estimated GFR 82 >=60 mL/min/1.73 m?? [facility] Comment: The eGFR was calculated using the CKD-EP I equation. As with all creatinine based estimates of kidney function, eGFR values calculated with the CKD-EPI equation are not accurate in patients wi th acute kidney failure, extremes of body mass or the acutely ill. [email or web address]/[email or web address] MANGUMnkf eGFR 95 >=60 mL/min/1.73 m?? [facility] Comment: The eGFR was calculated using the CKD-EP I equation. As with all creatinine based estimates of kidney function, eGFR values calculated with the CKD-EPI equation are not accurate in patients wi th acute kidney failure, extremes of body mass or the acutely ill. [email or web address]/[facility]nk[facility] Specimen Anatomical Collection Method Collection Time Receive d Time (Source) Location / / Volume Laterality Blood specimen 08/17/2019 9:54 AM 019 (specimen) EST 10:01 AM EST Resulting Agency Comment Spec In Lab Eriberto Melgar MD CHEMISTRY ORDERABLES Performing Organization Address City/[facility]/ZIP Code Phon e Number [address] Reticulocyte Count (08/17/2019 9:54 AM EST) P athologist Signature Retic Ct % 1.4 0.7 - 2.6 [facility] % [facility] LABORATORY Retic Ct Abs 0.070 0.030 - TIFFANI RAMONA 0.120 [facility] x10(6)/[facility] LABORATORY Immature Retic% 4.7 0.0 - 15.6 [facility] % [facility] LAB[facility]ORY Reticulated Hgb 34.2 31.3 - [facility] 40.2 pg [facility] Specimen Anatomical Collection Method Collection Time Receive d Time (Source) Location / / Volume Laterality Blood specimen 08/17/2019 9:54 AM 019 (specimen) EST 10:01 AM EST Resulting Agency Comment Spec In Lab Eriberto Melgar MD HEMATOLOGY ORDERABLES Performing Organization Address City/[facility]/[place]IP [place] [address] C-peptide (08/17/2019 9:54 AM EST) athologist Signature C-Peptide 2.7 0.8 - 5.2 [facility] ng/mL [facility] Specimen Anatomical Collection Method Collection Time Receive d Time (Source) Location / / Volume Laterality Blood specimen 08/17/2019 9:54 AM 019 (specimen) EST 10:01 AM EST Resulting Agency Comment Spec In Lab Eriberto Melgar MD CHEMISTRY ORDERABLES Performing Organization Address City/[facility]/[place] [address] documented in this encounter Visit Diagnoses Diagnosis Aftercare following organ transplant 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
--- OUTSIDE RECORDS SUMMARY | 2022-03-13 18:26 | XMS_ITS | Encounter Summary ---
:1965 Author Organization [facility] [place] [address] Care Team Providers Name Role Phone Anna Mullen MD Primary Care Provider Reason for Referral Diagnostic Test (Routine) - Closed Specialty Diagnoses / Procedures Referred By Contact Refer red To Contact Radiology Diagnoses Chest pain, unspecified type Geoffrey Cassidy MD [facility] Rad Nuclear Med Procedures NM Pharmacologic Stress CT Component [facility] CARDIOLOGY DEPT. [address] [phone] Fax: Referral ID Status Reason Start Date Expiration Date Visits V isits Requested Authorized [id number] Closed Specialty 01/04/2019 01/04/2020 1 1 Service Requested Reason for Visit Diagnostic Test (Routine) - Closed Specialty Diagnoses / Procedures Referred By Contact Refer red To Contact Radiology Diagnoses Chest pain, unspecified type Geoffrey Cassidy MD [facility] Rad Nuclear Med Procedures NM Pharmacologic Stress CT Component [facility] DR Hair [facility] [place] [address] [place] [address] Fax: Referral ID Status Reason Start Date Expiration Date Visits V isits Requested Authorized [id number] Closed Specialty 01/04/2019 01/04/2020 1 1 Service Requested Encounter Details Date Type Department Care Team Description 01/13/2019 Hospital Encounter Nuclear Medicine at [place], Geoffrey Chest pain, Tiffani Melendrez MD unspecified type One [facility] [address] [place], [place] CARDIOLOGY DEPT. [address] [place], [place] [phone] [id number] Social History Tobacco Use Types Packs/Day Years [...] Associated Comments Diagnosis NM PHARMACOLOGIC Routine 01/13/2019 9:15 AM Chest pain, Resul ts for this STRESS CT COMPONENT EDT unspecified type proc edure are in the results section. documented in this encounter Results NM Pharmacologic Stress CT Component (01/13/2019 9:15 AM EDT) Anatomical Region Laterality Modality Nuclear [...] e number below. ? Electronically signed by: Unique Skaggs [facility] ([phone]), at 01/13/2019 11:58 AM Narrative 01/13/2019 11:58 AM EDT EXAMINATION: NM [...] this report, please contact e number below. Electronically signed by: Unique Skaggs [facility] ([phone]), at 01/13/2019 11:58 AM Geoffrey Cassidy MD IMG NM ORDERABLES documented in this encounter Visit Diagnoses Diagnosis Chest pain, unspecified type documented in this encounter Care Teams Manager Privacy Relationship Specialty Start Date End Date Anna Mullen MD PCP - General 12/03/10 [address] [place] [address] documented as of this encounter
--- OUTSIDE RECORDS SUMMARY | 2022-03-13 18:26 | XMS_ITS | Encounter Summary ---
:1965 Author Organization [place] [address] Care Team Providers Name Role Phone Anna Mullen MD Primary Care Provider Reason for Referral Diagnostic Test (Routine) - Closed Specialty Diagnoses / Procedures Referred By Contact Refer red To Contact Radiology Diagnoses Chest pain, unspecified type Geoffrey Cassidy MD [facility] Rad Nuclear Med Procedures NM Pharmacologic Stress Myocardial Perfusion [facility] CARDIOLOGY DEPT. [place], [place] [address] [place] [phone] Fax: Referral ID Status Reason Start Date Expiration Date Visits V isits Requested Authorized [id number] Closed Specialty 01/11/2019 03/11/2019 1 1 Service Requested Diagnostic Test (Routine) - Closed Specialty Diagnoses / Procedures Referred By Contact Refer red To Contact Radiology Diagnoses Chest pain, unspecified type Geoffrey Cassidy MD [facility] Rad Nuclear Med Procedures NM Pharmacologic Stress CT Component [facility] DR Hair [facility] [place] [address] [place] [address] Fax: Referral ID Status Reason Start Date Expiration Date Visits V isits Requested Authorized [id number] Closed Specialty 01/04/2019 01/04/2020 1 1 Service Requested Reason for Visit Reason Comments Chest Pain Ekg Consultation (Urgent) - Specialty Diagnoses / Procedures Referred By Contact Refer red To Contact Cardiology Diagnoses Chest pain chest pain Anna Mullen MD [place], Geoffrey Melendrez MD Procedures none [address] [place] [address] [place] [address] Phone: Fax: Referral ID Status Reason Start Date Expiration Date Visits V isits Requested Authorized [id number] Consult, Test 12/27/2018 12/27/2019 6 6 & Treat PCP Updated and/or Approved Encounter Details Date Type Department Care Team Description 01/04/2019 Office Visit Cardiology at [facility] Geoffrey Cassidy, Chest pain, unspecified type (Primary Dx); [facility] [place] [address] CARDIOLOGY DEPT. [phone] [place], [place] [address] Social History Tobacco Use Types [...] Sign Reading Time Taken Comments Blood Pressure 138/84 01/04/2019 10:11 AM EDT Pulse 70 01/04/2019 10:11 AM EDT Temperature - - Respiratory Rate - - Oxygen Saturation 98% 01/04/2019 10:11 AM EDT Inhaled Oxygen Concentration - - Weight 95.7 kg (211 lb) 01/04/2019 10:11 AM EDT Height 182.9 cm (6') 01/04/2019 10:11 AM EDT Body Mass Index 28.62 01/04/2019 10:11 AM EDT documented in this encounter Progress Notes Geoffrey Cassidy MD - 01/04/2019 10:00 AM EDT Images from the original note were not included. [facility] [place] [address] CARDIOLOGY OUTPATIENT NOTE PRIMARY CARE PROVIDER: Anna Mullen MD REFERRING PROVIDER: Anna Mullen PROBLEM LIST: 1. Chest pain, unspecified type 2. Essential hypertension Subjective: Patient ID: Richard Hsu is a 53 y.o. male. HPI: The patient presents in consultation at the request of Anna Garcia MD for chest pain and dyspnea. The patient was in his usual state of health at home one night a couple weeks ago when he let his dog out and went to the bathroom. After he let his dog and, he began to have acute sharp chest pain in the center of his chest radiating to his neck. The pain was 8-10 out of 10. Patient reported being short of breath. His mother who is a nurse took his blood pressure was in the 180/110 range. He had just describes similar yet less severe symptoms to his primary care physician who had given him nitroglycerin. He took sublingual nitroglycerin with some relief. He was given 1 nitroglycerin in the ambulance and by the time he arrived at [facility] chest pain had significantly improved. He underwent EKGs, troponin and chest CT which were all negative. He was discharged with follow-up here for evaluation of his chest pain. Patient also reports increasing dyspnea for the last 6 months. He reports undergoing pulmonary function test and was diagnosed with asthma and has been using inhalers. He also reports a 15 pound weight gain in the last year which has coincided with his increased shortness of breath. He denies any orthopnea, PND, palpitations, syncope or presyncopal symptoms. Review of Systems Cardiovascular: Negative for chest pain, claudication, dyspnea on exertion, leg swelling, near-syncope, orthopnea, palpitations, paroxysmal nocturnal dyspnea and syncope. Hematologic/Lymphatic: Does not bruise/bleed easily. All other systems reviewed and are negative. Family history: Family History Problem Relation Age of Onset ??? Alcohol Abuse Father ??? Coronary Artery Disease Maternal Grandmother ??? Diabetes Maternal Grandmother ??? Heart Disease Maternal Grandmother ??? High Blood Pressure Mother ??? High Blood Pressure Brother ??? Stroke Maternal Grandfather Social history: Social History Socioeconomic History ??? 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 Lives with MEDICATIONS: Current Outpatient Medications Medication Sig Dispense Refill ??? CELLCEPT 250 mg Capsule TAKE TWO CAPSULES BY MOUTH TWICE A DAY 360 capsule 2 ??? valACYclovir (VALTREX) 500 mg Tablet TAKE ONE TABLET BY MOUTH THREE TIMES A DAY 30 tablet 3 ??? cholecalciferol, Vitamin D3, 2,000 unit Capsule Take 1 capsule by mouth daily. 90 capsule 3 ??? traZODone (DESYREL) 50 mg Tablet TAKE ONE TABLET BY MOUTH EVERY EVENING 90 tablet 3 ??? PROGRAF 1 mg Capsule Take 2 mg twice daily. Pancreas transplant 08/28/2013. ICD code Z94.83 (Patient taking differently: Take 2 mg in am 1mg at PM twice daily. Pancreas transplant 08/28/2013. ICD code Z94.83) 120 capsule 11 ??? guaiFENesin (ROBITUSSIN) 20 mg/mL Liquid Take 10 mLs by mouth every 4 hours as needed for Cough.120 mL 0 ??? lisinopril (PRINIVIL;ZESTRIL) 20 mg Tablet Take 1.5 tablets by mouth daily. 90 tablet 3 ??? gabapentin (NEURONTIN) 300 mg Capsule Take [...] supply Dx code :250.60 60 tablet 6 No current facility-administered medications for this visit. Objective:BP 138/84 Pulse 70 Ht 182.9 cm (6') Wt 95.7 kg (211 lb) SpO2 98% BMI 28.62 kg/m?? Physical Exam Constitutional: He is oriented to person, place, and time. He appears well- developed and well-nourished. HENT: Head: Normocephalic and atraumatic. Eyes: Pupils are equal, round, and reactive to light. Conjunctivae are normal. Neck: No JVD present. No thyromegaly present. Cardiovascular: Normal rate, regular rhythm, S1 normal and S2 normal. Exam reveals no gallop, no S3,no S4 and no friction rub. No murmur heard. Pulses: Carotid pulses are 2+ on the right side, and 2+ on the left side. Radial pulses are 2+ on the right side, and 2+ on the left side. Popliteal pulses are 2+ on the right side, and 2+ on the left side. Pulmonary/Chest: Effort normal and breath sounds normal. Abdominal: Soft. Normal appearance and bowel sounds are normal. Neurological: He is alert and oriented to person, place, and time. Skin: Skin is warm and dry. Vitals reviewed. Recent Results (from the past 72 hour(s)) EKG 12 Lead Result Value Ventricular rate 66 Atrial Rate 66 P-R Interval 178 QRS Duration 90 Q-T Interval 356 QTC Calculated (Bezet) 373 Calculated P Eldridge 60 Calculated R Eldridge 80 Calculated T Eldridge 59 INTERPRETATION Normal sinus rhythm Normal ECG When compared with ECG of 27-AUG-2013 23:47, QT has shortened Assessment and Plan: 1. Chest pain: The pain is very atypical. Extensive work-up in the [facility] emergency room as described above which was negative. His EKG remains normal today. Cardiac catheterization in 2006, 2008 at [facility] showed normal coronaries. Given his long history of diabetes status post pancreas transplant transplant, I will obtain a nuclear stress test to further risk stratify him. 2. Dyspnea: Stress test as above. This is likely a multifactorial problem which also has been affected by weight gain and the new diagnosis of asthma. documented in this encounter Plan of Treatment Not on filedocumented as of this encounter Procedures Procedure Name Priority Date/Time Associated Diagnosis Comme nts EKG 12-LEAD Routine 01/04/2019 10:18 AM Chest pain, Results for this EDT unspecified type procedure a re in the results section. documented in this [...] contact e number below. Geoffrey Cassidy MD [facility] ORDERABLES Nuclear Pharmacologic Stress Cardiology (01/13/2019 8:31 AM EDT) Specimen (Source) Anatomical Location Collection Method / Collectio n Time Received Time / Laterality Volume Narrative This result has an attachment that is no t available. Geoffrey Cassidy MD CARDIAC SERVICES ORDERABLES NM Pharmacologic Stress Myocardial Perfusion (01/13/2019 8:30 [...] below. Geoffrey Cassidy MD IMG NM ORDERABLES EKG 12 Lead (01/04/2019 10:18 AM EDT) [facility] Method Time Signature Ventricular rate 66 BPM MUSE SYSTEM Atrial Rate 66 BPM MUSE SYSTEM P-R Interval 178 ms MUSE SYSTEM QRS Duration 90 ms MUSE SYSTEM Q-T Interval 356 ms MUSE SYSTEM QTC Calculated 373 ms MUSE SYSTEM (Bezet) Calculated P Eldridge 60 degrees MUSE SYSTEM Calculated R Eldridge 80 degrees MUSE SYSTEM Calculated T Eldridge 59 degrees MUSE SYSTEM INTERPRETATION Normal sinus rhythm MUSE SYSTEM Normal ECG When compared with ECG of 27-AUG-2013 23:47, QT has shortened Confirmed by MD Ramin, Eriberto ([id number]) on 01/04/2019 4:50:40 P M Specimen Anatomical Collection Method Collection Time Receive d Time (Source) Location / / Volume Laterality 01/04/2019 10:18 01/04/2019 4:50 AM EDT PM EDT Geoffrey Cassidy MD ECG ORDERABLES Performing Organization Address City/State/ZIP Code Phon e Number MUSE SYSTEM documented in this encounter Visit Diagnoses Diagnosis Chest pain, unspecified type - Primary Essential hypertension Unspecified essential hypertension Chest pain, unspecified type Chest pain, unspecified type documented in this encounter Care Teams Flow Worker Relationship Specialty Start Date End Date Anna Mullen MD PCP - General 12/03/10 [address] [place] [address] documented as of this encounter
--- OUTSIDE RECORDS SUMMARY | 2022-03-13 18:26 | XMS_ITS | Encounter Summary ---
:1965 [place] [address] Care Team Providers Name Role Phone Anna Mullen MD Primary Care Provider Encounter Details Date Type Department Care Team Description 08/06/2019 [facility]illary [facility] [place] [address] NEUROLOGY DEPT. [phone] [place], [place] [address] (Wo rk) Social History Tobacco [...] AM Results f or this STORAGE ONLY DX EST procedure ar e in CHEST the results section. documented in this encounter Results Film Library- Storage Only DX Chest (08/06/2019 7:56 AM EST) Specimen (Source) Anatomical Location Collection Method / Collectio n Time Received Time / Laterality Volume Narrative RAD - 08/06/2019 7:56 AM EST This exam is auto-finalizing. It's purpo se is for storage only. Christian Cardoza MD IMG FILM LIBRARY ORDERABLES Performing Organization Address City/State/ZIP Code Phon e Number [place], [place] documented in this encounter Visit Diagnoses Not on filedocumented in this encounter Care Teams Tube Molder Fiberglass Relationship Specialty Start Date End Date Anna Mullen MD PCP - General 12/03/10 [address] [place] [address] documented as of this encounter
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
--- OUTSIDE RECORDS SUMMARY | 2022-03-13 18:26 | XMS_ITS | Encounter Summary ---
:1965 Author Organization [facility] [place] [address] Care Team Providers Name Role Phone Anna Mullen MD Primary Care Provider Reason for Visit Reason Onset Date Comments Medication Refill 02/17/2019 Encounter Details Date Type Department Care Team Description 02/17/2019 Refill Solid Organ Transplant Peterson Ortez , Aftercare following at [facility] [place] [place] [address] Social History Tobacco Use Types Packs/Day [...] transplant documented in this encounter Care Teams Hardware Supplies Sales Representative Relationship Specialty Start Date End Date Anna Mullen MD PCP - General 12/03/10 [address] [place], [place] [id number] documented as of this encounter
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
--- OUTSIDE RECORDS SUMMARY | 2022-03-13 18:26 | XMS_ITS | Encounter Summary ---
:1965 Author Organization [place] [address] Care Team Providers Name Role Phone Anna Mullen MD Primary Care Provider Reason for Visit Diagnostic Test (Routine) - Closed Specialty Diagnoses / Procedures Referred By Contact Refer red To Contact Radiology Diagnoses Chest pain, unspecified type Geoffrey Cassidy MD [facility] Rad Nuclear Med Procedures NM Pharmacologic Stress Myocardial Perfusion [facility] [place] [address] [place] [address] Fax: Referral ID Status Reason Start Date Expiration Date Visits V isits Requested Authorized [id number] Closed Specialty 01/11/2019 03/11/2019 1 1 Service Requested Encounter Details Date Type Department Care Team Description 01/13/2019 Hospital Encounter Nuclear Medicine at Geoffrey Cassidy Mary Hitchcock MD [facility] [place] [address] CARDIOLOGY DEPT. [phone] [place], [place] [address] (Wo rk) Social History Tobacco [...] res ults section. documented in this encounter Visit Diagnoses Not on filedocumented in this encounter Administered Medications Inactive Administered Medications - up to 3 most recent administrations Medication Order MAR Action Action Date Dose Rate Site technetium (Tc-99m) sestamibi Given 01/13/2019 7:05 AM EDT 8.5 m Ci injection 8.5 mCi 8.5 mCi, Intravenous, ONCE PRN, 1 dose, Starting on Vanessa 01/13/19 at 0705, Until Vanessa 01/13/19 at 0705, Per Protocol, Routine documented in this encounter Care Teams Horticulture Worker Relationship Specialty Start Date End Date Anna Mullen MD PCP - General 12/03/10 [address] [place] [address] documented as of this encounter
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
--- OUTSIDE RECORDS SUMMARY | 2022-03-13 18:26 | XMS_ITS | Encounter Summary ---
:1965 Author Organization [facility] [place] [address] Care Team Providers Name Role Phone Anna Mullen MD Primary Care Provider Encounter Details Date Type Department Care Team Description 08/17/2019 Office Visit Solid Organ Bernardo Melgar organ transplant; Transplant at [facility] Eriberto Stoddard MD 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; [facility] [place], [place] pression; [facility] Cerebrovascular accident (CVA), unspecif ied mechanism [place], [place] TRANSPLANT [id number] SURGERY [phone] [place], [place] [address] Social History Tobacco Use Types [...] Sign Reading Time Taken Comments Blood Pressure 146/90 08/17/2019 10:38 AM EST Pulse 60 08/17/2019 10:38 AM EST Temperature - - Respiratory Rate - - Oxygen Saturation - - Inhaled Oxygen Concentration - - Weight 95.6 kg (210 lb 12.8 oz) 08/17/2019 10:38 AM EST Height 182.9 cm (6') 08/17/2019 10:38 AM EST Body Mass Index 28.59 08/17/2019 10:38 AM EST documented in this encounter Progress Notes Eriberto Melgar MD - 08/17/2019 10:40 AM EST Transplant Medicine Follow Up Reese Hsu [id number] 1965 ?? Transplant ID: Date: 08/17/2019 Patient: Reese Hsu Transplant Date: 08/28/2013 Organ(s) Pancreas [place] organ diagnosis: Diabetes Mellitus - Type I (Pancreas) Days from Transplant: 6 years History of Present Illness: Mr. Reese Hsu is a 53 y.o. years old male who is s/p Pancreas transplant on 08/28/2013 (Pancreas). His post-op course was uneventful He is here for a regular follow up visit and to review his recent admission Aug 06 for a CVA/TIA. ?? Interim Hx: He was last seen 6 [...] for diabetics, every 5 for non diabetics [place] kidney ultrasound looking for renal cell CA, [...] infection 09/28/2017 ??? Other chest pain 12/31/2018 ?? Resolved Ambulatory Problems Diagnosis Date Noted ??? Edema 01/15/2012 ?? Past Medical History: Diagnosis Date ??? ASCVD (arteriosclerotic cardiovascular disease) ? Breathing problem recently ??? Chronic pain 11 years old ??? Circulatory disease recently ??? Depression ? Diabetes 17 years old ??? Digestive problems [...] heart ? Severe headache ? Past Surgical History: Procedure Laterality Date ??? APPENDECTOMY ? BRAIN SURGERY ?? 1976 ?? stroke paralyze left side neck down ??? CARPAL TUNNEL RELEASE ? CREATED BY INTERFACE ? EGD-BIOPSY Procedure Date: 07/18/2009 ??? CREATED BY INTERFACE ? Entered not Verified Procedure Date: 10/24/2010 ??? PRO COLONOSCOPY, DIAGNOSTIC N/A 10/24/2014 ?? COLONOSCOPY, DIAGNOSTIC performed by Anna Rapp MD at [facility] ENDOSCOPY ??? PRO TRANSPLANT ALLOGRAFT PANCREAS ?? 08/28/2013 ?? @PANCREATIC TRANSPLANT performed by Iraj Keller MD at [facility] OR ??? PRO TRANSPLANT, PREP DONOR PANCREAS ?? 08/28/2013 ?? @PREPARATION CADAVERIC PANCREAS, STANDARD performed by Iraj Keller MD at [facility] OR ??? PRO UNLISTED PROCEDURE, MUSCULOSKELETAL SYSTEM, GENERAL ?? 10 years ?? carpel tunnel ??? PRO UPPER GI ENDOSCOPY, BIOPSY ?? 12/31/2011 ?? UPPER GASTROINTESTINAL ENDOSCOPY,WITH BIOPSY SINGLE OR MULTIPLE performed by CLAYTON BHAKTA at [facility] ENDOSCOPY ??? PRO UPPER GI ENDOSCOPY, BIOPSY N/A 08/15/2015 ?? EGD WITH BIOPSY performed by Clayton Bhakta MD at [facility] ENDOSCOPY ??? SHOULDER SURGERY ? UPPER GI ENDOSCOPY, EXAM ?? 12/31/2011 ?? UPPER GI ENDOSCOPY performed by CLAYTON BHAKTA at [facility] ENDOSCOPY ?? Current Outpatient Medications: ??? venlafaxine (EFFEXOR-XR) 150 mg Capsule, Sust. Release 24 hr, Take 150 mg by mouth Daily., Disp:, Rfl: ??? venlafaxine XR (EFFEXOR-XR) 75 mg Capsule, Sust. Release 24 hr, , Disp: , Rfl: ??? atorvastatin (LIPITOR) 10 mg Tablet, Take 1 tablet by mouth daily., Disp: 90 tablet, Rfl: 2 ??? gabapentin (NEURONTIN) 300 mg Capsule, Take 3 capsules by mouth nightly. 300 mg in the morning and 900 mg at night., Disp: 90 capsule, Rfl: 12 ??? PROGRAF 1 mg Capsule, TAKE TWO CAPSULES BY MOUTH in AM and 1 capsule in PM. Pancreas transplant 08/28/2013. ICD code Z94.83, Disp: 120 capsule, Rfl: 11 ??? clopidogrel (PLAVIX) 75 mg Tablet, Take 1 tablet by mouth daily., Disp: 21 tablet, Rfl: 0 ??? mycophenolate (CELLCEPT) 250 mg Capsule, Take two capsules by mouth twice a day Pancreas transplant 08/28/2013 Z94.83, Disp: 360 capsule, Rfl: 3 ??? traZODone (DESYREL) 50 [...] code :250.60, Disp: 60 tablet, Rfl: 6 Allergies Allergen Reactions ??? Nexium [Esomeprazole Magnesium] Diarrhea ? Any acid reflux medication causes severe diarrhea ??? Prilosec [Omeprazole Magnesium] Diarrhea ??? Reglan [Metoclopramide Hcl] ? TD ??? Simvastatin ?? Immunization History Administered Date(s) Administered ??? Influenza PF, Split 05/31/2014, 05/19/2016, 08/17/2019 ??? Influenza Vaccine W/preservative, Quadrivalent 06/11/2019 ??? Influenza Vaccine w/Preservative, Split 05/22/2012 ??? Influenza Vaccine, Whole 06/11/2009 ??? Pneumococcal Conjugate (13 Valent) 02/22/2016 ??? Pneumococcal Polyvalent 23 08/31/2003, 06/14/2014, 08/17/2019 ??? Tdap Vaccine 03/05/2011 ?? PHYSICAL EXAM: Vitals Office Visit from 08/17/2019 in Solid Organ Transplant at [facility] [facility] Weight 95.6 kg (210 lb 12.8 oz) Height 182.9 cm (6') BSA (Calculated - sq m) 2.2 sq meters BMI (Calculated) 28.59 Heart Rate 60 BP 146/90 Patient Position Sitting ?? Gen - AAO x 3 in NAD Skin - No exanthem.,have a skin break on upperlip HEENT - Mucous membranes moist. Chest: Lungs clear to ausculatation w/o wheezes/ rhonchi/ crackles. Heart - S1 and S2 clear w/o murmur, gallop, or rub. JVP not elevated. Abd - Soft. + BS. No bruit. Non tender. No organomegaly. Ext - Warm. No cyanosis. No dependent edema. ?? Labs/ Imaging: Results for REESE HSU ( ) as of 08/30/2019 04:36 Ref. Range 08/17/2019 09:54 08/17/2019 10:05 08/17/2019 10:05 08/17/2019 10:05 WBC Latest Ref Range: 4.0 - 9.5 x10(3)/mcL 8.2 RBC Latest Ref Range: 4.58 - 5.54 x10(6)/mcL 4.86 Hemoglobin Latest Ref Range: 13.7 - 16.5 gm/dL 14.5 Hematocrit Latest Ref Range: 40.5 - 48.5 % 43.4 MCV Latest Ref Range: 82.9 - 93.1 fL 89.3 MCH Latest Ref Range: 27.5 - 32.1 pg 29.8 MCHC Latest Ref Range: 32.0 - 35.7 gm/dL 33.4 RDWSD Latest Ref Range: 36.0 - 45.0 fL 43.1 RDWCV Latest Ref Range: 11.4 - 13.8 % 13.2 Platelets Latest Ref Range: 145 - 357 x10(3)/mcL 255 MPV Latest Ref Range: 7.6 - 12.[address] % Latest Ref Range: 0.7 - 2.6 % 1.[address] Abs Latest Ref Range: 0.030 - 0.120 x10(6)/mcL 0.070 Immature Retic% Latest Ref Range: 0.0 - 15.6 % 4.7 Reticulated Hgb Latest Ref Range: 31.3 - 40.2 pg 34.2 nRBC % Auto Latest Units: % 0.0 nRBC Abs Auto Latest Ref Range: 0.000 - 0.000 x10(3)/mcL 0.000 Neutr Abs (ANC) Latest Ref Range: 1.70 - 6.10 x10(3)/mcL 3.45 Neutrophils % Latest Units: % 42.1 Immature Gran % Latest Units: % 0.60 Lymphocytes % Latest Units: % 45.7 Monocytes % Latest Units: % 7.6 Eosinophils % Latest Units: % 3.1 Basophils % Latest Units: % 0.9 Kym Gran Abs Latest Ref Range: 0.00 - 0.04 x10(3)/mcL 0.05 (H) Lymphocytes Abs Latest Ref Range: 0.9 - 3.2 x10(3)/mcL 3.7 (H) Monocyte Abs Latest Ref Range: 0.3 [...] Latest Ref Range: 5 - 15 mmol/L 10 BUN Latest Ref Range: 10 - 20 mg/dL 14 Creatinine Latest Ref Range: 0.80 - 1.50 mg/dL 1.05 eGFR Latest Ref Range: >=60 mL/min/1.73 m?? 82 eGFR Latest Ref Range: >=60 mL/min/1.73 m?? 95 Glucose Lvl Latest Ref Range: 65 - 199 mg/dL 109 Calcium Latest Ref Range: 8.5 - 10.5 mg/dL 9.5 Magnesium Latest Ref Range: 0.69 - 1.07 mmol/L 0.77 Hemoglobin A1C Latest Ref Range: 4.3 - 5.6 % 5.4 Est Avg Gluc Latest Units: mg/dL 110 Phosphorus Latest Ref Range: 2.5 - 4.5 mg/dL 2.7 Uric Acid Latest Ref Range: 3.5 - 8.5 mg/dL 6.3 Total Protein Latest Ref Range: 6.1 - 8.0 gm/dL 7.5 Albumin Latest Ref Range: 3.2 - 5.2 gm/dL 4.4 Total Bilirubin Latest Ref Range: 0.2 - 1.3 mg/dL 0.8 Alk Phos Latest Ref Range: 40 - 130 unit/L 108 AST Latest Ref Range: 0 - 39 unit/L 24 ALT Latest Ref Range: 0 - 55 unit/L 22 Amylase Latest Ref Range: 28 - 100 unit/L 64 Lipase Latest Ref Range: 0 - 60 unit/L 25 25-OH Vit D Total Latest Ref Range: 30 - 100 ng/mL 68 Vit D 1,25 Latest Ref Range: 18 - 64 pg/mL 40 U Protein Ran Latest Ref Range: 0 - 12 mg/dL <6 Chol, Total Latest Units: mg/dL 124 HDL Latest Units: mg/dL 46 Chol/HDL Ratio Latest Units: ratio 2.7 Triglycerides Latest Units: mg/dL 139 LDL Cholesterol Latest Units: mg/dL 50 Lipid Interpretation Unknown See Note Tacrolimus Lvl Latest Units: ng/mL 6.0 PTH Latest Ref Range: 15 - 65 pg/mL 64 C-Peptide Latest Ref Range: 0.8 - 5.2 ng/mL 2.7 Color UA Latest Ref Range: Yellow Yellow Appearance UA Latest Ref Range: Clear Clear Spec Coleman UA Latest Ref Range: 1.002 - 1.030 1.008 pH UA Latest Ref Range: 5.0 - 8.0 6.5 Protein UA Latest Ref Range: Negative mg/dL [...] Unknown No Prot/Cre Ratio Latest Units: ratio <0.1 Ca/Cre Ratio Latest Units: ratio 0.05 U Calcium Latest Units: mg/dL 1.7 U Creatinine Latest Units: mg/dL 35 35 35 U Mg Ran Latest Units: mmol/L 0.83 U Phosphorus Latest Units: mg/dL 18.1 BKV Blood Result Unknown Not Detected BKV Blood Interp Unknown BK Virus Plasma R... ?? Impression/ Plan: Reese Hsu is s/p Pancreas [...] BID .Prograft levels are in therapeutic range. ?? PO4/Mg Calcium,magnesium and phos levels are low suggests Vit D3 deficiency Dropped Vit D replacement..Continue with magnesium gluconate supplementation. ?? Hypertension Lisinopril 20 mg bid; borderline but would not over Rx ?? Hyponatremia Salt his food ; observe for hypoaldo ?? HCM: Was due for colonoscopy in Mar; it has not been performed ??Discussion with the patient and/or family concerned the following: ? Diagnostic results or recommended studies ? Prognosis; ? Risks and benefits of management; ? Instructions for management; ? Compliance with treatment; ? Risk factor reduction; ? Patient and family education. Total time: 25 of 30 minutes in direct face to face marriage and family counselor. Follow-up: 6 months Labs quarterly. documented in this encounter Plan of Treatment Not on filedocumented as of this encounter Results Magnesium, urine, random (08/17/2019 10:05 AM EST) P athologist Signature U Mg Ran 0.83 mmol/L [facility] Specimen Anatomical Collection Method Collection Time Receive d Time (Source) Location / / Volume Laterality Urine specimen 08/17/2019 10:05 9 (specimen) AM EST 10:12 AM EST Resulting Agency Comment Spec In Lab Eriberto Melgar MD URINE ORDERABLES Performing Organization Address City/State/[place] [address] Phosphorus, urine, random (08/17/2019 10:05 AM EST) P athologist Signature U Phosphorus 18.1 mg/dL [facility] Specimen Anatomical Collection Method Collection Time Receive d Time (Source) Location / / Volume Laterality Urine specimen 08/17/2019 10:05 9 (specimen) AM EST 10:12 AM EST Resulting Agency Comment Spec In Lab Eriberto Melgar MD URINE ORDERABLES Performing Organization Address City/[facility]/ZIP Code Phon e Number [address] Calcium Creatinine Ratio, random urine (08/17/2019 10:05 AM EST) P athologist Signature U Calcium 1.7 mg/dL [facility] U Creatinine 35 mg/dL [facility] Ca/Cre Ratio 0.05 ratio [facility] Specimen Anatomical Collection Method Collection Time Receive d Time (Source) Location / / Volume Laterality Urine specimen 08/17/2019 10:05 9 (specimen) AM EST 10:12 AM EST Resulting Agency Comment Spec In Lab Eriberto Melgar MD URINE ORDERABLES Performing Organization Address City/[facility]/ZIP Code Phon e Number [address] Creatinine, urine, random (08/17/2019 10:05 AM EST) P athologist Signature U Creatinine 35 mg/dL [facility] Specimen Anatomical Collection Method Collection Time Receive d Time (Source) Location / / Volume Laterality Urine specimen 08/17/2019 10:05 9 (specimen) AM EST 10:12 AM EST Resulting Agency Comment Spec In Lab Eriberto Melgar MD URINE ORDERABLES Performing Organization Address City/[facility]/ZIP Code Phon e Number [address] Protein/Creatinine Ratio, urine (08/17/2019 10:05 AM EST) P athologist Signature U Creatinine 35 mg/dL [facility] U Protein Ran <6 0 - 12 [facility] mg/dL [facility] Prot/Cre Ratio <0.1 ratio [facility] Specimen Anatomical Collection Method Collection Time Receive d Time (Source) Location / / Volume Laterality Urine specimen 08/17/2019 10:05 9 (specimen) AM EST 10:12 AM EST Resulting Agency Comment Spec In Lab Eriberto Melgar MD URINE ORDERABLES Performing Organization Address City/[facility]/ZIP Code Phon e Number [address] Urinalysis with reflex Culture (08/17/2019 10:05 AM EST) [facility] Method Time Signature Glucose UA Negative Negative [facility] mg/dL [facility] Protein UA Negative Negative [facility] mg/dL [facility] Bilirubin UA Negative Negative [facility] mg/dL [facility] Comment: Clinical correlation required for positi ve Urine Bilirubin results as false positive may occur with some drugs and d rug related products. If a false positive is suspected a serum total bili sinha should be considered if clinically indicated. Urobilinogen UA Normal Normal mg/dL [facility] pH UA 6.5 5.0 - 8.0 [facility] Blood UA Negative Negative mg/dL [facility] Ketones UA Negative Negative mg/dL [facility] Nitrite UA Negative Negative [facility] Leukocytes UA Negative Negative [facility]ORY Appearance UA Clear Clear [facility] Spec Coleman UA 1.008 1.002 - 1.030 [facility] Color UA Yellow Yellow [facility] Culture Reflexed No [facility] Specimen (Source) Anatomical Collection Method Collection Time Re ceived Time Location / / Volume Laterality Urine specimen 08/17/2019 10:05 9 obtained by clean AM EST 10:[address] catch procedure (specimen) Resulting Agency Comment Spec In Lab Eriberto Melgar MD URINE ORDERABLES Performing Organization Address City/[facility]/ZIP Code Phon e Number [address] BKV Quant Blood (08/17/2019 9:54 AM EST) Component Value Ref Test Analysis Performed At [facility] Range Method Time Signature BKV Blood Not Detected [facility]ATORY BKV Blood BK Virus Plasma Result Interpretation [facility] Result: BK Virus not detected HOSPITAL Specimen type: plasma LABORATO RY Assay Range: 2.80-7.80 log copies/mL (6.28x10^2 - 6.28x10^7 copies/mL) Methods: Quantitative real-time polymerase chain react ion (PCR) of viral DNA isolated from plasma was performed using Ze-gen BKV analyte-specific reagents and the lmbang System that automates both nucleic a deepak [...] acteristics determined by the [facility] and [employer] ([facility]) Laboratory at [facility]. It has not been cleared or approved [...] Organization Address City/State/[place] [address] Tacrolimus level (08/17/2019 9:54 AM EST) athologist Signature Tacrolimus Lvl 6.0 ng/mL [facility] Comment: Trough therapeutic: ??5-15 ng/mL Performed by ultra-performance liquid ch romatography tandem mass spectrometry (UPLCMS/MS). This test was developed and its performa nce characteristics determined by [facility]. It has not been cleared [...] Melgar MD CHEMISTRY ORDERABLES Performing Organization Address City/[facility] Code Phon e Number [address] Lavender Tube HOLD (08/17/2019 9:54 AM EST) Patholo gist Method Time Signature Lavender Hold Sample in [facility] Specimen Anatomical Collection Method Collection Time Receive d Time (Source) Location / / Volume Laterality Blood specimen 08/17/2019 9:54 AM 019 (specimen) EST 10:01 AM EST Eriberto Melgar MD HEMATOLOGY ORDERABLES Performing Organization Address [facility] Phon e Number [address] Gold Tube HOLD (08/17/2019 9:54 AM EST) P athologist Signature Gold Hold Sample in [facility] Specimen Anatomical Collection Method Collection Time Receive d Time (Source) Location / / Volume Laterality Blood specimen 08/17/2019 9:54 AM 019 (specimen) EST 10:01 AM EST Eriberto Melgar MD CHEMISTRY ORDERABLES Performing Organization Address City/[facility] [place] [address] Lipase (08/17/2019 9:54 AM EST) P athologist Signature Lipase 25 0 - 60 [facility] unit/L [facility] Specimen Anatomical Collection Method Collection Time Receive d Time (Source) Location / / Volume Laterality Blood specimen 08/17/2019 9:54 AM 019 (specimen) EST 10:01 AM EST Resulting Agency Comment Spec In Lab Eriberto Melgar MD CHEMISTRY ORDERABLES Performing Organization Address City/[facility] Code Phon e Number [address] Amylase (08/17/2019 9:54 AM EST) athologist Signature Amylase 64 28 - 100 [facility] unit/L [facility] Specimen Anatomical Collection Method Collection Time Receive d Time (Source) Location / / Volume Laterality Blood specimen 08/17/2019 9:54 AM 019 (specimen) EST 10:01 AM EST Resulting Agency Comment Spec In Lab Eriberto Melgar MD CHEMISTRY ORDERABLES Performing Organization Address City/State/ZIP Code Phon e Number [address] Hemoglobin A1c (08/17/2019 9:54 AM EST) athologist Signature Hemoglobin A1C 5.4 4.3 - 5.6 [facility] Comment: Reference Range: 4.3 [...] Mellitus, Diabetes Care 2013; 36: Suppl. 1, U97-62 Est Avg Gluc 110 mg/dL [facility] Comment: eAG equivalents for HbA1c percentages: HbA1c(%) ?eAG(mg/dL) 6.0 ?126 6.5 ?140 7.0 ?154 7.5 ?169 8.0 ?183 8.5 ?197 9.0 ?212 9.5 ?226 10.0 ? 240 Limitations: The eAG calculation has not been validated on women, individuals below 18 years old and above 70 years old, and individuals with hemoglobinopathies. Additional resources are available on [facility] website. Edinson GRISSOM, Nathaniel J, Ari R, et al. ??Tr anslating the A1C assay into estimated average glucose values. ??Diabetes Care 2008:31(8):3708-8097. Specimen Anatomical Collection Method Collection Time Receive d Time (Source) Location / / Volume Laterality Blood specimen 08/17/2019 9:54 AM 019 (specimen) EST 10:01 AM EST Resulting Agency Comment Spec In Lab Eriberto Melgar MD CHEMISTRY ORDERABLES Performing Organization Address City/State/[place] [address] Lipid Panel (Reflex Direct LDL) (08/17/2019 9:54 AM EST) P athologist Signature Chol, Total 124 mg/dL [facility] Comment: Lower Risk: <200 mg/dL Average Risk: 200-239 mg/dL Higher Risk: >xm=017 mg/dL Triglycerides 139 mg/dL [facility] Comment: Average Risk/Lower Risk: <150 mg/dL Borderline High Risk: 150-199 mg/dL High Risk: 200-499 mg/dL Very High Risk: >lj=350 mg/dL HDL 46 mg/dL [facility] Comment: Males: ?? Higher Risk: <40 mg/dL Females: ?? HIgher Risk: <50 mg/dL LDL Cholesterol 50 mg/dL [facility] Comment: Lowest Risk: <100 mg/dL Lower Risk: 100-129 mg/dL Borderline High Risk: 130-159 mg/dL High Risk: 160-189 mg/dL Very High Risk: >fr=218 mg/dL Chol/HDL Ratio 2.7 ratio [facility] Lipid Interpretation See Note [facility] Comment: Lipid management should be guided by a p atient? s ASCVD risk, goals and preferences. ACC/AHA Guidelines recommend high intens ity statin if clinical ASCVD or LDL greater than or equal to 190 mg/dL. http://Global Rockstar[employer]Ex[employer]ox.com/IBX-JFA-Sexgzjkax Adults aged 40-75 with LDL 70-189 mg/dL should have their 10 year ASCVD risk estimated with the ACC/AHA ASCVD risk es timator http://tools.acc.org/IUCPZ-Tzgl-Qhkozzak r/ Statin should be discussed if risk [...] Organization Address City/State/[place] [address] 1,25-dihydroxycholecalciferol (08/17/2019 9:54 AM EST) athologist Signature Vit D 1,25 40 18 - 64 [facility] pg/mL [facility] Comment: ADDITIONAL INFORMATIO N This test was developed and its performa nce characteristics determined by [facility] in a manner co nsistent with CLIA requirements. This test has not been gene ared or approved by the U.S. Food and Drug Administration. Test Performed by: [facility] [address] [id number] [employer] Coordinator: Dung Buenrostro M.D. Ph. D.; [facility]# [id number] Specimen Anatomical Collection Method Collection Time Receive d Time (Source) Location / / Volume Laterality Blood specimen 08/17/2019 9:54 AM 019 (specimen) EST 10:44 AM EST Resulting Agency Comment Spec In Lab Eriberto Melgar MD CHEMISTRY ORDERABLES Performing Organization Address City/State/ZIP Code Phon e Number [address] Vitamin D, 25-Hydroxy (08/17/2019 9:54 AM EST) P athologist Signature 25-OH Vit D 68 30 - 100 TIFFANI RAMONA Total ng/mL [facility] Comment: As of 2019, 25-hydroxyvitamin D charles ting has moved from the [employer] to the Nora Jessica. No substantial change in me asured values is expected. Specimen Anatomical Collection Method Collection Time Receive d Time (Source) Location / / Volume Laterality Blood specimen 08/17/2019 9:54 AM 019 (specimen) EST 10:01 AM EST Resulting Agency Comment Spec In Lab Eriberto Melgar MD CHEMISTRY ORDERABLES Performing Organization Address City/State/ZIP Code Phon e Number [address] PTH (08/17/2019 9:54 AM EST) P athologist Signature PTH 64 15 - 65 TIFFANI RAMONA pg/mL [facility] Specimen Anatomical Collection Method Collection Time Receive d Time (Source) Location / / Volume Laterality Blood specimen 08/17/2019 9:54 AM 019 (specimen) EST 10:01 AM EST Resulting Agency Comment Spec In Lab Eriberto Melgar MD CHEMISTRY ORDERABLES Performing Organization Address City/State/ZIP Code Phon e Number [address] Uric acid (08/17/2019 9:54 AM EST) P athologist Signature Uric Acid 6.3 3.5 - 8.5 TIFFNAI RAMNOA mg/dL [facility] Specimen Anatomical Collection Method Collection Time Receive d Time (Source) Location / / Volume Laterality Blood specimen 08/17/2019 9:54 AM 019 (specimen) EST 10:01 AM EST Resulting Agency Comment Spec In Lab Eriberto Melgar MD CHEMISTRY ORDERABLES Performing Organization Address City/[facility]/ZIP Code Phon e Number [address] Magnesium (08/17/2019 9:54 AM EST) P athologist Signature Magnesium 0.77 0.69 - 1.07 [facility] mmol/L [facility] Specimen Anatomical Collection Method Collection Time Receive d Time (Source) Location / / Volume Laterality Blood specimen 08/17/2019 9:54 AM 019 (specimen) EST 10:01 AM EST Resulting Agency Comment Spec In Lab Eriberto Melgar MD CHEMISTRY ORDERABLES Performing Organization Address City/[facility]/ZIP Code Phon e Number [address] Phosphorus (08/17/2019 9:54 AM EST) P athologist Signature Phosphorus 2.7 2.5 - 4.5 [facility] Specimen Anatomical Collection Method Collection Time Receive d Time (Source) Location / / Volume Laterality Blood specimen 08/17/2019 9:54 AM 019 (specimen) EST 10:01 AM EST Resulting Agency Comment Spec In Lab Eriberto Melgar MD CHEMISTRY ORDERABLES Performing Organization Address City/[facility]/[place] [address] (ABNORMAL) Comprehensive metabolic panel (non-fasting) (08/17/2019 9:54 AM EST) P athologist Signature Glucose Lvl 109 65 - 199 [facility] mg/dL [facility] Comment: Diabetes: >=200 mg/dL plus symp toms BUN 14 10 - 20 mg/dL [facility] Creatinine 1.05 0.80 - 1.50 mg/dL [facility] Sodium 133 (L) 135 - 145 mmol/L [facility] Potassium 4.2 3.5 - 5.0 mmol/L [facility] Comment: Please note: ??Patients with WBC >100,00 0 may have falsely elevated Potassium levels. ??For accurate Potassium quantif ication in these patients send serum separator tube (gold top) for subsequent determinations. ??Contact the Clinical Chemistry Laboratory if there are any qu estions. Chloride 97 (L) 98 - 107 mmol/L [facility] CO2 26 22 - 31 mmol/L [facility] Anion Gap 10 5 - 15 mmol/L [facility] Calcium 9.5 8.5 - 10.5 mg/dL [facility] Total Protein 7.5 6.1 - 8.0 gm/dL [facility] Albumin 4.4 3.2 - 5.2 gm/dL [facility] AST 24 0 - 39 unit/L [facility] ALT 22 0 - 55 unit/L [facility] Alk Phos 108 40 - 130 unit/L [facility] Total Bilirubin 0.8 0.2 - 1.3 mg/dL [facility] Estimated GFR 82 >=60 mL/min/1.73 m?? [facility] Comment: The eGFR was calculated using the CKD-EP I equation. As with all creatinine based estimates of kidney function, eGFR values calculated with the CKD-EPI equation are not accurate in patients wi th acute kidney failure, extremes of body mass or the acutely ill. [email or web address] CITYnkf eGFR 95 >=60 mL/min/1.73 m?? [facility] Comment: The eGFR was calculated using the CKD-EP I equation. As with all creatinine based estimates of kidney function, eGFR values calculated with the CKD-EPI equation are not accurate in patients wi th acute kidney failure, extremes of body mass or the acutely ill. [email or web address]/[facility] Specimen Anatomical Collection Method Collection Time Receive d Time (Source) Location / / Volume Laterality Blood specimen 08/17/2019 9:54 AM 019 (specimen) EST 10:01 AM EST Resulting Agency Comment Spec In Lab Eriberto Melgar MD CHEMISTRY ORDERABLES Performing Organization Address City/[facility]/[place]IP [place] [address] Reticulocyte Count (08/17/2019 9:54 AM EST) P athologist Signature Retic Ct % 1.4 0.7 - 2.6 [facility] LABORATORY Retic Ct Abs 0.070 0.030 - [facility] 0.120 [facility] x10(6)/[facility] LABORATORY Immature Retic% 4.7 0.0 - 15.6 [facility] K [facility] LABOR[facility] Reticulated Hgb 34.2 31.3 - [facility] 40.2 pg [facility] Specimen Anatomical Collection Method Collection Time Receive d Time (Source) Location / / Volume Laterality Blood specimen 08/17/2019 9:54 AM 019 (specimen) EST 10:01 AM EST Resulting Agency Comment Spec In Lab Eriberto Melgar MD HEMATOLOGY ORDERABLES Performing Organization Address City/[facility]/[place] [address] C-peptide (08/17/2019 9:54 AM EST) P athologist Signature C-Peptide 2.7 0.8 - 5.2 [facility] ng/mL [facility] Specimen Anatomical Collection Method Collection Time Receive d Time (Source) Location / / Volume Laterality Blood specimen 08/17/2019 9:54 AM 019 (specimen) EST 10:01 AM EST Resulting Agency Comment Spec In Lab Eriberto Melgar MD CHEMISTRY ORDERABLES Performing Organization Address City/[facility]/[place] [address] documented in this encounter Visit Diagnoses Diagnosis Aftercare following organ transplant 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
--- OUTSIDE RECORDS SUMMARY | 2022-03-13 18:26 | XMS_ITS | Encounter Summary ---
:1965 Author Organization [facility] [place] [address] Care Team Providers Name Role Phone Anna Mullen MD Primary Care Provider Encounter Details Date Type Department Care Team Description 01/13/2019 Hospital Encounter Non-Invasive [place] Geoffrey Chest pain, Cardiology Lab Tiffani Melendrez MD unspecified type [facility] [place] [id number] [phone] Social History Tobacco Use Types Packs/Day Years [...] Name Priority Date/Time Associated Diagnosis Comme nts NUCLEAR PHARMACOLOGIC Routine 01/13/2019 8:31 AM Chest pain, STRESS CARDIOLOGY EDT unspecified type documented in this encounter Results Nuclear Pharmacologic Stress Cardiology (01/13/2019 8:31 AM EDT) Specimen (Source) Anatomical Location Collection Method / Collectio n Time Received Time / Laterality Volume Narrative This result has an attachment that is no t available. Geoffrey Cassidy MD CARDIAC SERVICES ORDERABLES documented in this encounter Visit Diagnoses Diagnosis Chest pain, unspecified type documented in this encounter Care Teams Equal Opportunity Assistant Relationship Specialty Start Date End Date Anna Mullen MD PCP - General 12/03/10 [address] [place] [address] documented as of this encounter
--- OUTSIDE RECORDS SUMMARY | 2022-03-13 18:26 | XMS_ITS | Encounter Summary ---
:1965 Author Organization [facility] [place] [address] Care Team Providers Name Role Phone Anna Mullen MD Primary Care Provider Reason for Visit Diagnostic Test (Routine) - Closed Specialty Diagnoses / Procedures Referred By Contact Refer red To Contact Radiology Diagnoses Chest pain, unspecified type Geoffrey Cassidy MD [facility] Rad Nuclear Med Procedures NM Pharmacologic Stress Myocardial Perfusion [facility] [place] [address] [place] [address] Fax: Referral ID Status Reason Start Date Expiration Date Visits V isits Requested Authorized [id number] Closed Specialty 01/11/2019 03/11/2019 1 1 Service Requested Encounter Details Date Type Department Care Team Description 01/13/2019 Hospital Encounter Nuclear Medicine at Geoffrey Cassidy Mary Hitchcock MD [facility] [address] CARDIOLOGY DEPT. [phone] [place], [place] [address] (Wo rk) Social History Tobacco [...] MAR Action Action Date Dose Rate Site regadenoson (LEXISCAN) injection Given 01/13/2019 8:30 AM EDT 0. 4 mg 0.4 mg 0.4 mg, Intravenous, ONCE, 1 dose, On Vanessa 01/13/19 at 0900, Routine technetium (Tc-99m) sestamibi injection Given 01/13/2019 8:30 AM EDT 26.1 mCi 26.1 mCi 26.1 mCi, Intravenous, ONCE PRN, 1 dose, Starting on Vanessa 01/13/19 at 0840, Until Vanessa 01/13/19 at 0830, Per Protocol, Routine documented in this encounter Care Teams Liquified Natural Gas Specialist Relationship Specialty Start Date End Date Anna Mullen MD PCP - General 12/03/10 [address] [place] [address] documented as of this encounter
--- OUTSIDE RECORDS SUMMARY | 2022-03-13 18:26 | XMS_ITS | Encounter Summary ---
:1965 Author Organization [facility] [place] [address] Care Team Providers Name Role Phone Anna Mullen MD Primary Care Provider Encounter Details Date Type Department Care Team Description 02/14/2019 Laboratory Appointment Lab 3L [facility] Pancreas replaced by [facility] [place] [id number] Social History Tobacco Use Types Packs/Day Years [...] Procedure Name Priority Date/Time Associated Comments Diagnosis HEMOGRAM STAT 02/14/2019 9:03 AM Pancreas replaced Resu lts for this EDT by transplant procedure are in the results section. DIFFERENTIAL, STAT 02/14/2019 9:03 AM Pancreas replaced Res ults for this AUTOMATED EDT by transplant procedure are in the results section. TACROLIMUS LEVEL STAT 02/14/2019 9:03 AM Pancreas replaced Results for this EDT by transplant procedure are in the results section. PROTEIN/CREATININE STAT 02/14/2019 9:03 AM Pancreas replace d Results for this RATIO, URINE EDT by transplant procedure are in the results section. URINALYSIS WITH REFLEX STAT 02/14/2019 9:03 AM Pancreas rep laced Results for this CULTURE EDT by transplant procedure are in the results section. RETICULOCYTE COUNT STAT 02/14/2019 9:03 AM Pancreas replace d Results for this EDT by transplant procedure are in the results section. CBC (WITH DIFF) STAT 02/14/2019 9:03 AM Pancreas replaced EDT by transplant URIC ACID STAT 02/14/2019 9:03 AM Pancreas replaced Resu lts for this EDT by transplant procedure are in the results section. PHOSPHORUS STAT 02/14/2019 9:03 AM Pancreas replaced Resu lts for this EDT by transplant procedure are in the results section. MAGNESIUM STAT 02/14/2019 9:03 AM Pancreas replaced Resu lts for this EDT by transplant procedure are in the results section. LIPASE STAT 02/14/2019 9:03 AM Pancreas replaced Resu lts for this EDT by transplant procedure are in the results section. HEMOGLOBIN A1C STAT 02/14/2019 9:03 AM Pancreas replaced Re sults for this EDT by transplant procedure are in the results section. CHOLESTEROL, TOTAL STAT 02/14/2019 9:03 AM Pancreas replace d Results for this EDT by transplant procedure are in the results section. AMYLASE STAT 02/14/2019 9:03 AM Pancreas replaced Resu lts for this EDT by transplant procedure are in the results section. COMPREHENSIVE STAT 02/14/2019 9:03 AM Pancreas replaced Res ults for this METABOLIC PANEL EDT by transplant procedure a re in (NON-FASTING) the results section. documented in this encounter Results (ABNORMAL) Differential, Automated (02/14/2019 9:03 AM EDT) [facility] gist Method Time Signature Neutrophils % 43.5 % [facility] Neutr Abs (ANC) 3.61 1.70 - [facility] 6.10 [facility] x10(3)/[facility] LABORATORY Lymphocytes % 45.8 % [facility] Lymphocytes Abs 3.8 (H) 0.9 - 3.2 [facility] x10(3)/[facility] LABORATORY Monocytes % 7.3 % [facility] Monocyte Abs 0.6 0.3 - 0.9 [facility] x10(3)/[facility] LABORATORY Eosinophils % 2.0 % [facility] Eosinophils Abs 0.2 0.0 - 0.4 [facility] x10(3)/[facility] LABORATORY Basophils % 0.8 % [facility] Basophils Abs 0.1 0.0 - 0.1 [facility] x10(3)/[facility] LABORATORY Immature Gran % 0.60 % [facility] Comment: Immature granulocytes(IG's)percentage an d absolute count will include metamyelocytes, myelocytes, and promyelo cytes. Blood smears from CBCs yielding IG's will be scanned manually for concor dance. If this scan disagrees with the automated IG or if promyelocytes are not ed, a manual differential will be performed. Kym Gran Abs 0.05 (H) 0.00 - 0.04 x10(3)/[facility] LABORATORY Specimen Anatomical Collection Method Collection Time Receive d Time (Source) Location / / Volume Laterality Blood specimen 02/14/2019 9:03 AM 019 9:11 (specimen) EDT AM EDT Resulting Agency Comment Spec In Lab Eriberto Melgar MD HEMATOLOGY ORDERABLES Performing Organization Address City/State/ZIP Code Phon e Number [place] [id number] (ABNORMAL) Hemogram (02/14/2019 9:03 AM EDT) Analysis Performed At Patho logist Time Signature WBC 8.3 4.0 - 9.5 [facility] x10(3)/[facility] LABORATORY RBC 4.54 (L) 4.58 - [facility] 5.54 [facility] x10(6)/[facility] LABORATORY Hemoglobin 14.2 13.7 - [facility] gm/dL [facility] Hematocrit 42.3 40.5 - [facility] 48.5 % [facility] MCV 93.2 (H) 82.9 - [facility].1 fL [facility] MCH 31.3 27.5 - [place] 32.1 pg [facility] MCHC 33.6 32.0 - [facility] 35.7 gm/dL [facility] Platelets 232 145 - 357 [facility] x10(3)/[facility] LABORATORY RDWSD 44.8 36.0 - [facility] 45.0 [facility] LABORATORY RDWCV 13.2 11.4 - [facility] 13.8 % [facility] LAB[facility] MPV 9.9 7.6 - 12.9 [facility] LABORATORY nRBC % Auto 0.0 % [facility] nRBC Abs Auto 0.000 0.000 - [facility] 0.000 [facility] x10(3)/[facility] LABORATORY Specimen Anatomical Collection Method Collection Time Receive d Time (Source) Location / / Volume Laterality Blood specimen 02/14/2019 9:03 AM 019 9:11 (specimen) EDT AM EDT Resulting Agency Comment Spec In Lab Eriberto Melgar MD HEMATOLOGY ORDERABLES Performing Organization Address City/[facility]/ZIP Code Phon e Number [address] Amylase (02/14/2019 9:03 AM EDT) P athologist Signature Amylase 58 28 - 100 [facility] unit/L [facility] Specimen Anatomical Collection Method Collection Time Receive d Time (Source) Location / / Volume Laterality Blood specimen 02/14/2019 9:03 AM 019 9:11 (specimen) EDT AM EDT Resulting Agency Comment Spec In Lab Eriberto Melgar MD CHEMISTRY ORDERABLES Performing Organization Address City/[facility]/[place] [address] Cholesterol, total (02/14/2019 9:03 AM EDT) P athologist Signature Chol, Total 146 mg/dL [facility] Comment: Lower Risk: <200 mg/dL Average Risk: 200-239 mg/dL Higher Risk: >xf=852 mg/dL Lipid Interpretation See Note [facility] Comment: Lipid management should be guided by a p atient? s ASCVD risk, goals and preferences. ACC/AHA Guidelines recommend high intens ity statin if clinical ASCVD or LDL greater than or equal to 190 mg/dL. http://tinyurl.com/EBF-JQH-Xojgidkex Adults aged 40-75 with LDL 70-189 mg/dL should have their 10 year ASCVD risk estimated with the ACC/AHA ASCVD risk es timator http://tools.acc.org/NXLIW-Nnjk-Nqczzbhc r/ Statin should be discussed if risk [...] Address City/State/ZIP [place] [address] (ABNORMAL) Comprehensive metabolic panel (non-fasting) (02/14/2019 9:03 AM EDT) P athologist Signature Glucose Lvl 103 65 - 199 [facility] mg/dL [facility] Comment: Diabetes: >=200 mg/dL plus symp toms BUN 14 10 - 20 mg/dL [facility] Creatinine 0.98 0.80 - 1.50 mg/dL [facility] Sodium 133 (L) 135 - 145 mmol/L [facility] Potassium 4.7 3.5 - 5.0 mmol/L [facility] [...] Anion Gap 8 5 - 15 mmol/L [facility] Calcium 9.3 8.5 - 10.5 mg/dL [facility] Total Protein 7.5 6.1 - 8.0 gm/dL [facility] Albumin 4.6 3.2 - 5.2 gm/dL [facility] AST 30 0 - 39 unit/L [facility] ALT 31 0 - 55 unit/L [facility] Alk Phos 105 40 - 120 [...] of body mass or the acutely ill. [email or web address] eGFR 103 >=60 mL/min/1.73 m?? [facility] Comment: The eGFR was calculated using the CKD-EP I equation. As with all creatinine based estimates of kidney function, eGFR values calculated with the CKD-EPI equation are not accurate in patients wi th acute kidney failure, extremes of body mass or the acutely ill. [email or web address] Specimen Anatomical Collection Method Collection Time Receive d Time (Source) Location / / Volume Laterality Blood specimen 02/14/2019 9:03 AM 019 9:11 (specimen) EDT AM EDT Resulting Agency Comment Spec In Lab Eriberto Melgar MD CHEMISTRY ORDERABLES Performing Organization Address City/State/ZIP [place] [address] Lipase (02/14/2019 9:03 AM EDT) athologist Signature Lipase 20 0 - 60 [facility] unit/L [facility] Specimen Anatomical Collection Method Collection Time Receive d Time (Source) Location / / Volume Laterality Blood specimen 02/14/2019 9:03 AM 019 9:11 (specimen) EDT AM EDT Resulting Agency Comment Spec In Lab Eriberto Melgar MD CHEMISTRY ORDERABLES Performing Organization Address City/[facility]/ZIP Code Phon e Number [address] Magnesium (02/14/2019 9:03 AM EDT) P athologist Signature Magnesium 0.76 0.69 - 1.07 [facility] mmol/L [facility] Specimen Anatomical Collection Method Collection Time Receive d Time (Source) Location / / Volume Laterality Blood specimen 02/14/2019 9:03 AM 019 9:11 (specimen) EDT AM EDT Resulting Agency Comment Spec In Lab Eriberto Melgar MD CHEMISTRY ORDERABLES Performing Organization Address City/[facility]/ZIP Code Phon e Number [address] Phosphorus (02/14/2019 9:03 AM EDT) P athologist Signature Phosphorus 2.6 2.5 - 4.5 [facility] mg/dL [facility] Specimen Anatomical Collection Method Collection Time Receive d Time (Source) Location / / Volume Laterality Blood specimen 02/14/2019 9:03 AM 019 9:11 (specimen) EDT AM EDT Resulting Agency Comment Spec In Lab Eriberto Melgar MD CHEMISTRY ORDERABLES Performing Organization Address City/[facility]/ZIP Code Phon e Number [address] Protein/Creatinine Ratio, urine (02/14/2019 9:03 AM EDT) P athologist Signature U Creatinine 21 mg/dL [facility] U Protein Ran <6 0 - 12 [facility] Prot/Cre Ratio <0.3 ratio [facility] Specimen Anatomical Collection Method Collection Time Receive d Time (Source) Location / / Volume Laterality Urine specimen 02/14/2019 9:03 AM 019 9:08 (specimen) EDT AM EDT Resulting Agency Comment Spec In Lab Eriberto Melgar MD URINE ORDERABLES Performing Organization Address City/[facility]/[place] [address] Reticulocyte Count (02/14/2019 9:03 AM EDT) athologist Signature Retic Ct % 1.3 0.7 - 2.6 [facility] Retic Ct Abs 0.060 0.030 - [facility] 0.120 [facility] x10(6)/[facility] LABORATORY Immature Retic% 4.1 0.0 - 15.6 [facility] LAB[facility] Reticulated Hgb 36.1 31.3 - [facility] 40.2 [facility] LABORATORY Specimen Anatomical Collection Method Collection Time Receive d Time (Source) Location / / Volume Laterality Blood specimen 02/14/2019 9:03 AM 019 9:11 (specimen) EDT AM EDT Resulting Agency Comment Spec In Lab Eriberto Melgar MD HEMATOLOGY ORDERABLES Performing Organization Address City/[facility]/[place] [address] Tacrolimus level (02/14/2019 9:03 AM EDT) P athologist Signature Tacrolimus Lvl 8.0 ng/mL [facility] Comment: Trough therapeutic: ??5-15 ng/mL Performed by ultra-performance liquid ch romatography tandem mass spectrometry (UPLCMS/MS). This test was developed and its performa nce characteristics determined by [facility]. It has not been cleared [...] Organization Address City/State/ZIP Code Phon e Number [address] Uric acid (02/14/2019 9:03 AM EDT) P athologist Signature Uric Acid 7.1 3.5 - 8.5 [facility] mg/dL [facility] Specimen Anatomical Collection Method Collection Time Receive d Time (Source) Location / / Volume Laterality Blood specimen 02/14/2019 9:03 AM 019 9:11 (specimen) EDT AM EDT Resulting Agency Comment Spec In Lab Eriberto Melgar MD CHEMISTRY ORDERABLES Performing Organization Address City/[facility]/ZIP Code Phon e Number [address] Urinalysis with reflex Culture (02/14/2019 9:03 AM EDT) Patholo gist Method Time Signature Glucose UA Negative Negative [facility] mg/dL [facility] Protein UA Negative Negative [facility] mg/dL [facility] Bilirubin UA Negative Negative [facility] mg/dL [facility] Comment: Clinical correlation required for positi ve Urine Bilirubin results as false positive may occur with some drugs and d rug related products. If a false positive is suspected a serum total bili sinha should be considered if clinically indicated. Urobilinogen UA Normal Normal mg/dL [facility] pH UA 7.0 5.0 - 8.0 [facility] Blood UA Negative Negative mg/dL [facility] Ketones UA Negative Negative mg/dL [facility] Nitrite UA Negative Negative [facility] Leukocytes UA Negative Negative [facility] LABORATORY Appearance UA Clear Clear [facility] Spec [place] UA 1.004 1.002 - 1.030 [facility] Color UA Straw Yellow [facility] Culture Reflexed No [facility] Specimen (Source) Anatomical Collection Method Collection Time Re ceived Time Location / / Volume Laterality Urine specimen 02/14/2019 9:03 02/14/2019 9:08 obtained by clean AM EDT AM EDT catch procedure (specimen) Resulting Agency Comment Spec In Lab Eriberto Melgar MD URINE ORDERABLES Performing Organization Address City/State/ZIP [place] [address] Hemoglobin A1c (02/14/2019 9:03 AM EDT) athologist Signature Hemoglobin A1C 5.3 4.3 - 5.6 [facility] [...] 1, S67-74 Est Avg Gluc 105 mg/dL [facility] Comment: eAG equivalents for HbA1c [...] into estimated average glucose values. ??Diabetes Care 2008:31(8):0553-3910. 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
--- OUTSIDE RECORDS SUMMARY | 2022-03-13 18:27 | XMS_ITS | Encounter Summary ---
:1965 Author Organization [facility] [place] [address] Care Team Providers Name Role Phone Anna Mullen MD Primary Care Provider Reason for Visit Reason Comments Medication Refill Encounter Details Date Type Department Care Team Description 11/17/2017 Refill Solid [facility] [place] [address] [place] [address] [phone] (Wo rk) Social History Tobacco Use Types [...] on filedocumented in this encounter Care Teams Basket Bottom Machine Operator Relationship Specialty Start Date End Date Anna Mullen MD PCP - General 12/03/10 [address] [place] [address] documented as of this encounter
--- OUTSIDE RECORDS SUMMARY | 2022-03-13 18:27 | XMS_ITS | Encounter Summary ---
:1965 Author Organization [facility] [place] [address] Care Team Providers Name Role Phone Anna Mullen MD Primary Care Provider Reason for Visit Auth/Cert Specialty Diagnoses / Procedures Referred By Contact Refer red To Contact Diagnoses Fever FEVERS Procedures AGUILAR IPI Referral ID Status Reason Start Date Expiration Date Visits Requ ested Visits Authorized [id number] 1 1 Encounter Details Date Type Department Care Team Description 07/31/2017 - Hospital Encounter 4 [facility] Bruce Webb III, [place] [address] 08/03/2017 [facility] [place] [address] [facility] [place] [address] [place] [id number] Social History Tobacco Use Types Packs/Day Years Used Date Never Smoker Smokeless Tobacco: Never Used Alcohol Use Standard Drinks/Week Comments No 0 (1 standard drink = 0.6 oz pure alcoho l) history of abuse, stopped 1996 Sex Assigned at Date Recorded Male 05/29/2021 11:28 PM EDT documented as of this encounter Last Filed Vital Signs Vital Sign Reading Time Taken Comments Blood Pressure 152/90 08/03/2017 11:15 AM EST Pulse 77 08/02/2017 5:22 AM EST Temperature 37 ??C (98.6 ??F) 08/03/2017 11:15 AM EST Respiratory Rate 20 08/03/2017 11:15 AM EST Oxygen Saturation 96% 08/03/2017 2:13 AM EST Inhaled Oxygen Concentration - - Weight 98.6 kg (217 lb 6 oz) 08/01/2017 7:30 AM EST Height 182.9 cm (6') 08/01/2017 7:30 AM EST Body Mass Index 29.48 08/01/2017 7:30 AM EST documented in this encounter Discharge Summaries Alyson Moreau MD - 08/03/2017 1:25 PM EST Discharge Summary Patient Name: Richard Hsu Patient Age: 51 y.o. Language: Israeli Race: White Ethnicity: Not nor Admit date: 07/31/2017 Discharge date and time: 08/13/17 Attending Physician: Pascual Khalil MD Discharge Physician: Pascual Khalil MD Follow-up Recommendations for Providers: Please evaluate for signs of infection Please obtain CBC to evaluate for leukocytosis Lisinopril increased from 20 mg to 30 mg daily, please follow-up blood pressure control Inpatient Provider Contact Information: For questions regarding this document or issues relating to this hospitalization on the Medical Service, please contact your inpatient physician through the [facility] Network Systems Administrator . Issues after hours and on weekends will be handled by the Hospitalist staff on-call. Discharge Diagnoses (Hospital Problems) and Secondary Diagnoses (Chronic Problems): Active Hospital Problems Diagnosis ??? Fever Resolved Hospital Problems Diagnosis Date Resolved No resolved problems to display. Active Non-Hospital Problems Diagnosis ??? Diabetes mellitus ??? Gastroparesis due to DM ??? Prophylactic immunotherapy ??? 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 ??? Depression ??? Aftercare following organ transplant ??? Encounter for long-term (current) use of other medications ??? Dehydration ??? Nevus ??? Vitiligo ??? Ulnar neuropathy ??? Pancreatitis ??? Immunosuppression ??? Stroke-like symptoms ??? Hypertension ??? Migraine ??? LBP radiating to right leg History of Presentation: Taken from chart Pt was vacationing a month ago in [place] then returned to [place]. Two days after returning home he developed headache and dry cough. Headache was described as occipital radiating up the back of his head. He presented to the ED for headache and dizziness where imaging (CT head) which were unremarkable. Headache initially improved but worsened and he presented to his PCP who ordered an MRI brain whichwas unremarkable. Two weeks prior to presentation he developed night sweats; he subsequently developed high fever and dry cough with his headaches. He subsequentlyhe presented to the ED at [facility] where rectal temperature was 102.9.and he was admitted for further workup. Pt reports low grade temperature during his admission that would subside in the afternoon and then spike mid-afternoon accompanied by severe headache and rash (erythema of the neck and chest, inner thighs and abdomen). However, of note fever was in the setting of tylenol. ?? He endorses some SOB, particularly when coughing. He also endorses one episodes of lightheadedness with his fevers and headaches prior to presenting to the ER. He denies any syncope or falls. He denies any sick contacts. Patient reports his dog had kennel cough approximately a month prior topresentation. ? Course at [facility]: Temperature was 38.9 degrees on presentation,with vital signs otherwise stable. CXR and UA were unremarkable He was started on empiric Ceftriaxone and Azithromycin initially, azithromycin was transitioned to doxycycline on day two of admission for coverage of tick bourne illness. CT head showed findings suggestive of left sphenoid acute sinusitis only. CTAP showed s/p pancreatic transplant and umbilical hernia only. CT Chest showed small b/l pleural effusions only. ?? Labs were notable for a WBC count of 2.82 with a normal differential. Lipase wnl, and a mild transaminitis (AST 48, ALT 68, ALP 146). Albumin 3.1. Lipase 131. Hemoglobin 11.8. Sodium 134 BUN 9, creatinin 1.22. LP was performed and showed 1 WBC, 9 RBCs, glucose 61, total protein 44. CSF culture and gram stain were negative. Per patient report, opening pressure was elevated. CSF west Nile RNA negative, Lyme negative, CSF Adenovirus negative. Anaplasma DNA PCR negative, CSF EBV negative. A phagocytophil DNA PCR negative, B divergens/MO-1 PCR negative. Babesia PCR negative, Lyme negative, CMV PCR negative, E chaffeensis DNA PCR negative, E ewingii/canis DNA PCR negative, E muris-like DNA PCR negative, EBV PCRnegative, Parvovirus negative. Influenza panel negative. Blood cultures showed no growth at 72 hours. IgG 1180, IgA 89 and IgM 79. Hospital Course: #Fever of Unknown Origin #Cough #Rash #Headache Mr Hsu was initially continued on ceftriaxone 2g IV q12hrs and doxycycline 100 mg IV q12hrs. XR of his sinuses was obtained and did not show mastoiditis. His extensive workup at the OSH was reviewed, blood cultures and UA were drawn and were unremarkable.Given clinical stability and picture consistent with viral prodrome, his antibiotics were discontinued and he was closely monitored for 48 hoursduring which time he remained hemodynamically stable and afebrile. His rash and headache improved, he was discharged with guaiphenesin for cough. His presentation was attributed to a self limiting enterovirus, possibly Cocksackie B which would fit with his headache, fever, rash and mild transaminitis. ?? # Hx of Pancreatic Transplant Cellcept 500 mg bid and Prograf 2 mg bid. CD4/CD8/CD19, IGG, lipase and CBC were trended. Dr Melgar followed during the admission Labs were largely unremarkable and he remained stable throughout admission. #HTN SBP was mildly elevated during admission. His home lisinopril was increased from 20 mg to 30 mg on discharge. Vital Signs at Discharge: BP: 152/90, Heart Rate: 77, Temp: 37 ??C (98.6 ??F), Resp: 20, BMI (Calculated): 29.48 Height: 182.9 cm (6') (08/01/17 0730) Weight - Scale: 98.6 kg (217 lb 6 oz) (08/01/17 0730) Functional and Cognitive Status: Stable. Important Studies and Lab Data: Recent Labs 08/03/17 0416 08/02/17 0445 08/01/17 0420 WBC 6.6 5.3 4.3 HGB 12.6* 12.2* 11.7* HCT 37.6* 35.0* 34.4* PLATELET 257 228 189 Last 3 Lytes Recent Labs 08/03/17 0416 08/02/17 0445 08/01/17 0420 NA 136 135 138 K 4.2 4.2 4.2 CL 98 98 100 CO2 22 22 26 BUN 14 12 10 CREATININE 1.04 0.92 0.92 Recent Labs 08/03/17 0416 08/02/17 0445 08/01/17 0420 AST 47* 44* 42* ALT 57* 57* 52 ALKPHOS 140* 135* 131* BILITOT 0.7 0.6 0.5 BILIDIR 0.1 0.1 0.1 Pertinent Labs/Micro ?? CRP: 37.9 (H, <4.9) ?? Immunodeficiency panel: CD3: 89% (H) (62-87) CD4: 23% (L) (35-63) CD8: 64% (H) (10-35) Absolute CD4: 330 (329-1427), prior CD4 on unknown date was 281 ?? Ig (WNL) IgA: 89 (WNL) IgM: 79 (WNL) ?? CSF analysis: 1 WBC, 9 RBCs, glucose 61, total protein 44. CSF culture and gram stain were negative.Per patient report, opening pressure was elevated. ?? Plasma: ?? CMV DNA PCR: neg ?? EBV PCR: neg ?? Parvovirus B19 PCR: neg Blood: ?? Anaplasma phagocytophilum PCR: neg ?? Ehrlichia chaffeensis PCR: neg ?? Ehrlichia ewingii/canis PCR: neg ?? Ehrlichia muris-like: PCR ?? Parasite exam: negative ?? BK virus PCR negative Cerebrospinal fluid: ?? West Nile Virus PCR: neg ?? CMV PCR: neg ?? HSV1, 2 PCR: neg & neg ?? Varicella zoster PCR: neg ?? Borrelia burgdorferi PCR: neg ?? Borrelia mayonii PCR: neg ?? Borrelia garinii/afzelli: neg ?? Adenovirus WAGE ANALYST negative ?? EBV WAGE ANALYST negative Pending Studies and Lab Data: Fungus cx WAGE ANALYST (at [facility]) Discharge Conditions/Prognosis: Upon discharge the patient is hemodynamically stable, fully ambulatory without supplemental oxygen, afebrile and pain free . Discharge to: Home Updated Allergies/ADRs: Allergies Allergen [...] Medications: Your Medications New Medications Dose Details guaiFENesin 20 mg/mL Liqd Commonly known as: ROBITUSSIN Take 10 mLs by mouth every 4 hours as needed for Cough. 200 mg Quantity: 120 mL Refills: 0 Continued medications with new dosing Dose Details lisinopril 20 mg Tab Commonly known as: PRINIVIL;ZESTRIL Take 1.5 tablets by mouth daily. What changed: how much to take 30 mg Quantity: 90 tablet Refills: 3 Continued medications, unchanged Dose Details acetaminophen 325 mg Tab Commonly known as: TYLENOL Take 2 tablets by mouth every 4 hours as needed (Pain, Fever. if oral temperature greater than 38.5 Centigrade). 650 mg Quantity: 30 tablet Refills: 0 aspirin 81 mg Chew Take 81 mg by mouth daily. 81 mg Refills: 0 CELLCEPT 250 mg Cap TAKE TWO CAPSULES BY MOUTH TWICE A DAY Generic drug: mycophenolate Quantity: 360 capsule Refills: 3 fexofenadine 60 mg Tab Commonly known as: BECKY Take 60 mg by mouth daily. 60 mg Refills: 0 * gabapentin 300 mg Cap Commonly known as: NEURONTIN Take 300 mg by mouth every morning. Indications: 900 mg in AM and 100mg in PM 300 mg Refills: 0 * gabapentin 300 mg Cap Commonly known as: NEURONTIN Take 900 mg by mouth nightly. 900 mg Refills: 0 levothyroxine 150 mcg Tab Commonly known as: SYNTHROID Take 150 mcg by mouth daily. 150 mcg Refills: 0 Magnesium Gluconate 27 mg (500 mg) Tab Commonly known as: MAG-G Take 1 tablet by mouth daily. 1 tablet Quantity: 30 tablet Refills: 11 multivitamin Cap Take 1 capsule by mouth daily. 1 capsule Refills: 0 ondansetron 8 mg Tab Commonly known as: ZOFRAN Take 1 tablet by mouth every 8 hours as needed for Nausea. 8 mg Quantity: 15 tablet Refills: 0 pantoprazole 40 mg Tbec Commonly known as: PROTONIX Take 40 mg by mouth 2 times daily. 40 mg Refills: 0 PROGRAF 1 mg Cap Take 2 mg twice daily. Pancreas transplant 08/28/2013. ICD code Z94.0 Generic drug: tacrolimus Quantity: 120 capsule Refills: 11 psyllium 3.5 gram Pwpk Take 1 packet by mouth daily. 1 packet Quantity: 30 each Refills: 0 sildenafil 100 mg Tab Commonly known as: VIAGRA Take 1 tablet by mouth as needed for Erectile Dysfunction. 90 day supply Dx code :250.60 100 mg Quantity: 60 tablet Refills: 6 traZODone 50 mg Tab Commonly known as: DESYREL TAKE ONE TABLET BY MOUTH EVERY EVENING Quantity: 90 tablet Refills: 3 * Notice: This list has 2 medication(s) that are the same as other medications prescribed for you. Read the directions carefully, and ask your doctor or other care provider to review them with you. Smoking Status at Discharge: History Smoking Status ??? Never Smoker Smokeless Tobacco ??? Never Used Instructions Given to Patient at Discharge: Patient Instructions Instructions on Discharge to Home Why you were hospitalized - You were hospitalized for fever of unknown origin. Your fever was thought to be likely due to a virus. Call your doctor or seek medical attention if you develop the following - chest pain, shortness of breath, fever, chills, cough, weakness in an arm or leg Activity level - no restrictions Diet - no change in previous diet Driving - as before hospitalization Shower/Bath - permitted Wound Care - none Home Oxygen therapy - none Follow-up: Future Appointments Date Time Provider Department Center 08/07/2017 10:00 AM LAB, [facility] L Lab [facility] 08/07/2017 11:00 AM Eriberto Melgar MD [facility] 08/07/2017 1:00 PM DOBUTAMINE STRESS [facility] PCP Hanh Marroquin 08/12/17 at 9:15 AM Your Inpatient Doctor: Bruce Moreno I* Your Primary Care Provider: Anna Mullen MD [phone] For questions regarding this document or issues relating to this hospitalization on the Medical Service, please contact your inpatient physician through the [facility] Network Systems Administrator . Issues after hours and on weekends will be handled by the Hospitalist staff on-call. General Instructions None Future Appointments and Orders Future Appointments Provider Department Dept Phone 08/07/2017 10:00 AM LAB, THREE L Lab [address] [place] [address] 08/07/2017 11:00 AM Eriberto Melgar MD Transplant at [place] [phone] 08/07/2017 1:00 PM DOBUTAMINE STRESS Non-Invasive Cardiology Lab [facility] [phone] Do not eat or drink anything for 3 hours before your test. Discharge References/Attachments None documented in this encounter Discharge Instructions Patient InstructionsAlyson Moreau MD - 07/31/2017 5:32 PM EST Instructions on Discharge to Home Why you were hospitalized - You were hospitalized for fever of unknown origin. Your fever was thought to be likely due to a virus. Call your doctor or seek medical attention if you develop the following - chest pain, shortness of breath, fever, chills, cough, weakness in an arm or leg Activity level - no restrictions Diet - no change in previous diet Driving - as before hospitalization Shower/Bath - permitted Wound Care - none Home Oxygen therapy - none Follow-up: Future Appointments Date Time Provider Department Center 08/07/2017 10:00 AM LAB, THREE L Lab [address] [place] [address] 08/07/2017 11:00 AM Eriberto Melgar MD [facility] 08/07/2017 1:00 PM DOBUTAMINE STRESS KAILYN Fay [facility] PCP Hanh Marroquin 08/12/17 at 9:15 AM Your Inpatient Doctor: Bruce Moreno I* Your Primary Care Provider: Anna Mullen MD [phone] For questions regarding this document or issues relating to this hospitalization on the Medical Service, please contact your inpatient physician through the [facility] Network Systems Administrator . Issues after hours and on weekends will be handled by the Hospitalist staff on-call. documented in this encounter Medications at Time of Discharge Medication Sig Dispensed Refills Start Date End Date levothyroxine Take 150 mcg by 0 (SYNTHROID) [...] 6 09/14/2012 mg tablet Dx code :250.60 guaiFENesin Take 10 mLs by mouth 120 mL 0 08/03/201703/2019 (ROBITUSSIN) 20 mg/mL every 4 hours as Liquid needed for Cough. lisinopril Take 1.5 tablets by 90 tablet 3 08/03/201702/17 (PRINIVIL;ZESTRIL) 20 mouth daily. mg Tablet gabapentin (NEURONTIN) Take 900 mg by mouth 0 08/07/2019 300 mg Capsule nightly. 100 mg in the morning and 900 mg at night. traZODone (DESYREL) 50 TAKE ONE TABLET BY 90 tablet 3 05/1405/12/2018 mg Tablet MOUTH EVERY EVENING PROGRAF 1 mg Capsule Take 2 mg twice 120 capsule 11 7 03/08/2018 daily. Pancreas transplant 08/28/2013. ICD code Z94.0 CELLCEPT 250 mg Capsule TAKE TWO CAPSULES BY 360 capsule 3 0 12/18/2016 11/17/2017 MOUTH TWICE A DAY gabapentin (NEURONTIN) Take 300 mg by mouth 0 09/15/2017 300 mg every morning. 100 CapsuleIndications: 900 mg in the morning mg in AM and 100mg in and 900 mg at night. PM Indications: 900 mg in AM and 100mg in PM aspirin 81 mg Tablet, Take 81 mg by mouth 0 08/30/2019 Chewable daily. acetaminophen (TYLENOL) Take 2 tablets by 30 tablet 0 09/0205/22/2020 325 mg tablet mouth every 4 hours as needed (Pain, Fever. if oral temperature greater than 38.5 Centigrade). documented as of this encounter Progress Notes Pascual Khalil MD - 08/03/2017 2:37 PM EST Hospital Medicine - Attending Day of Discharge Documentation Discharge diagnosis Active Hospital Problems Diagnosis ??? Fever Resolved Hospital Problems Diagnosis Date Resolved No resolved problems to display. Secondary Issues Active Non-Hospital Problems Diagnosis ??? Diabetes mellitus ??? Gastroparesis due to DM ??? Prophylactic immunotherapy ??? 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 ??? Depression ??? Aftercare following organ transplant ??? Encounter for long-term (current) use of other medications ??? Dehydration ??? Nevus ??? Vitiligo ??? Ulnar neuropathy ??? Pancreatitis ??? Immunosuppression ??? Stroke-like symptoms ??? Hypertension ??? Migraine ??? LBP radiating to right leg I have personally seen and examined the patient and they are ready for discharge. I spent <30 minutes (Day of Discharge Code 78976) involved in the final examination of the patient, discussion of the hospital stay, instructions for continuing care to all relevant caregivers, and preparation of discharge records, prescriptions and referral forms. Plans ? Discharge to Home ? ? Please see the Discharge Summary for complete details of any medication changes and additional plans. Cheryl Bird RN - 08/03/2017 2:21 PM EST Patient discharged to home without services. Reviewed after visit summary with patient. Patient aware of when and why to notify MD. Patient had no questions regarding discharge teaching. Patient aware of follow up appointment. Prescriptions received. IVs DC'd. Patient left to family vehicle at approxim ately 14:30. Cheryl Bird RN - 08/03/2017 12:36 PM EST Assessment completed and in agreement with previous RNs assessment/documentation, will continue to monitor. Pascual Khalil MD - 08/02/2017 4:20 PM EST Inpatient Medicine Progress Note Hospital Day 2 days Active Hospital Problems Diagnosis ??? Fever Resolved Hospital Problems Diagnosis Date Resolved No resolved problems to display. Patient ID: Richard Hsu is a 51 y.o. male w/PMH of chronic back pain and DM1 s/p DDPT 08/27/13,HTN, depression, hypothyroidism, ASCVD, migraine who presented in transfer from [facility] for further workup of headache, dry cough, rash and fever of unknown origin. 24 Hour Events/Subjective: - Afebrile overnight, denies chills or sweats overnight - Rash has improved, no erythema this morning - Doxy, ceftriaxone, and acyclovir were discontinued this AM to see if fever improves - Seen by Dr. Melgar this AM who agreed with this plan Vitals: Last value Range last 24 hrs Temperature Temp: 37.1 ??C (98.8 ??F) Temp: [37 ??C (98.6 ??F)-37.2 ??C (99 ??F)] Heart Rate Heart Rate: 77 Heart Rate: [74-84] Blood Pressure BP: 144/82 BP: (122-158)/(60-93) Respiratory Rate Resp: 20 Resp: [16-20] SpO2 SpO2: 94 % SpO2: [92 %-96 %] Ins/Outs: Intake/Output Summary (Last 24 hours) at 08/02/17 1620 Last data filed at 08/02/17 1600 Gross per 24 hour Intake 5923 ml Output 3975 ml Net 1948 ml Patient Vitals for the past 168 hrs: Weight 08/01/17 0730 98.6 kg (217 lb 6 oz) Physical Exam: Gen: NAD, A&Ox3 HEENT: sclera non-icteric, no conjunctival erythema, MMM CV: RRR, no m/r/g, nl s1, s2 Pulm: Faint crackles at the L lower lung base, no wheezing or respiratory distress Abd: soft, NT Ext: no edema, no clubbing, no cyanosis. Skin: warm, dry, pinpoint erythematous bumps scattered over torso, arms and inner thigh - improved from yesterday Neuro: no focal deficits grossly noted. Orientation - person, place and time. Labs: Recent Labs 08/02/1744408/01/17 0420 07/31/17 2147 WBC 5.3 4.3 5.8 5.8 5.8 HGB 12.2* 11.7* 12.0* PLATELET 228 189 210 Recent Labs 08/02/175 08/01/17 0420 NA 135 138 K 4.2 4.2 CL 98 100 CO2 22 26 BUN 12 10 CREATININE 0.92 0.92 Recent Labs 08/02/175 08/01/17 0420 CALCIUM 8.9 8.7 MAGNESIUM 0.74 0.66* Recent Labs 08/02/175 08/01/17 0420 AST 44* 42* ALT 57* 52 ALKPHOS 135* 131* BILITOT 0.6 0.5 BILIDIR 0.1 0.1 No results for input(s): TROPONINT, CK in the last 168 hours. No results for input(s): PHART, NSN2JMA, PO2ART, EWQ2HMS in the last 168 hours. CD4/CD8 pending IgG levels normal Blood culturesx2 NGTD Inpatient Medications: Scheduled Meds: ??? lisinopril 20 mg Oral Daily ??? enoxaparin 40 mg Subcutaneous Nightly ??? sodium chloride 0.9 % 5 mL Intravenous BID ??? senna-docusate 2 tablet Oral BID ??? aspirin 81 mg Oral Daily ??? gabapentin 300 mg Oral QAM ??? gabapentin 900 mg Oral Nightly ??? levothyroxine 150 mcg Oral QAM ??? mycophenolate 500 mg Oral BID ??? pantoprazole 40 mg Oral BID ??? tacrolimus 2 mg Oral BID ??? traZODone 50 mg Oral Nightly Continuous Infusions: PRN Meds:.sodium chloride 0.9 %, lidocaine, ondansetron OR ondansetron, acetaminophen Assessment/Plan: Richard Hsu is a 51 y.o. male w/PMH of chronic back pain and DM1 s/p DDPT 08/27/13, HTN, depression, hypothyroidism, ASCVD, migraine who presented in transfer from [facility] for further workup of headache, dry cough, rash and fever of unknown origin. He continues to be afebrile and his rash and headache has improved and he continues to have a rare dry cough. He is feeling better today. He has undergone extensive workup including CT Head, CT chest/abdomen/pelvis, LP with studies, XR sinuses which hasbeen negative thus far. Coxsackie B is considered as a possibility which carries a 1 week self limited course. He appears to be improving off of antibiotics and acyclovir and we will continue to monitor for another 24 hours off antimicrobials/antivirals with low threshold to restart. #Fever of Unknown Origin #Dry Cough #Rash #Headache - s/p ceftriaxone 2g IV q12hrs, acyclovir, and doxycycline 100 mg IV q12hrs - XR sinuses negative - Blood cultures NGTD - UA negative - Will continue to monitor OSH pending labs ?? #Hx of Pancreatic Transplant - Continue Cellcept 500 mg bid - Continue Prograf 2 mg bid - Lipase daily -Transaminases mildly elevated, will continue to trend - CD4/CD8 ratio pending - Insulin discontinued - Dr Melgar following, appreciate recs ?? #Hypothyroidism - Continue levothyroxine ?? #Chronic back pain/ Scoliosis - Continue gabapentin ?? #CAD - continue ASA #Other - DVT ppx: Lovenox - Diet/Fluids: Regular - Access: PIV - Code Status: FULL - Dispo: Pending course Alyson Moreau MD PGY - 1, Internal Medicine 08/02/2017 I have seen the patient and reviewed the resident's above history and physical exam. I agree with the details as written. The assessment and plan were formulated in discussion with me and I agree with them as documented. Pascual Khalil MD Pascual Khalil MD - 08/01/2017 9:48 AM EST Inpatient Medicine Progress Note Hospital Day 1 day Active Hospital Problems Diagnosis ??? Fever Resolved Hospital Problems Diagnosis Date Resolved No resolved problems to display. Patient ID: Richard Hsu is a 51 y.o. male w/PMH of chronic back pain and DM1 s/p DDPT 08/27/13,HTN, depression, hypothyroidism, ASCVD, migraine who presented in transfer from [facility] for further workup of headache, dry cough, rash and fever of unknown origin. 24 Hour Events/Subjective: - Afebrile overnight, denies chills or sweats overnight - Rash has improved, no erythema this morning - Doxy, ceftriaxone, and acyclovir were discontinued this AM to see if fever improves - Seen by Dr. Melgar this AM who agreed with this plan Vitals: Last value Range last 24 hrs Temperature Temp: 37.3 ??C (99.1 ??F) Temp: [36.9 ??C (98.4 ??F)-38 ??C (100.4 ??F)] Heart Rate Heart Rate: -- Blood Pressure BP: 146/81 BP: (131-156)/(74-96) Respiratory Rate Resp: 16 Resp: [16-18] SpO2 SpO2: 96 % SpO2: [93 %-97 %] Ins/Outs: Intake/Output Summary (Last 24 hours) at 08/01/17 0948 Last data filed at 08/01/17 0900 Gross per 24 hour Intake 1630 ml Output 2400 ml Net -770 ml No data found. Physical Exam: Gen: NAD, A&Ox3 HEENT: sclera non-icteric, no conjunctival erythema, MMM CV: RRR, no m/r/g, nl s1, s2 Pulm: Faint crackles at the L lower lung base, no wheezing or respiratory distress Abd: soft, NT Ext: no edema, no clubbing, no cyanosis. Skin: warm, dry, pinpoint erythematous bumps scattered over torso, arms and inner thigh - improved from yesterday Neuro: no focal deficits grossly noted. Orientation - person, place and time. Labs: Recent Labs 08/01/17 0420 07/31/17 2147 WBC 4.3 5.8 5.8 5.8 HGB 11.7* 12.0* PLATELET 189 210 Recent Labs 08/01/17 0420 NA 138 K 4.2 CL 100 CO2 26 BUN 10 CREATININE 0.92 Recent Labs 08/01/17 0420 CALCIUM 8.7 MAGNESIUM 0.66* Recent Labs 08/01/17 0420 AST 42* ALT 52 ALKPHOS 131* BILITOT 0.5 BILIDIR 0.1 No results for input(s): TROPONINT, CK in the last 168 hours. No results for input(s): PHART, EZO0TDJ, PO2ART, PCS9DHH in the last 168 hours. CD4/CD8 pending IgG levels normal Blood culturesx2 NGTD Inpatient Medications: Scheduled Meds: ??? magnesium sulfate 2 g Intravenous Once ??? lisinopril 20 mg Oral Daily ??? sodium chloride 0.9 % 5 mL Intravenous BID ??? senna-docusate 2 tablet Oral BID ??? aspirin 81 mg Oral Daily ??? gabapentin 300 mg Oral QAM ??? gabapentin 900 mg Oral Nightly ??? levothyroxine 150 mcg Oral QAM ??? mycophenolate 500 mg Oral BID ??? pantoprazole 40 mg Oral BID ??? tacrolimus 2 mg Oral BID ??? traZODone 50 mg Oral Nightly ??? acyclovir 1,000 mg Intravenous Q8H ??? cefTRIAXone 2 g Intravenous Q24H ??? doxycycline 100 mg Intravenous Q12H Continuous Infusions: PRN Meds:.sodium chloride 0.9 %, lidocaine, ondansetron OR ondansetron, acetaminophen Assessment/Plan: Richard Hsu is a 51 y.o. male w/PMH of chronic back pain and DM1 s/p DDPT 08/27/13, HTN, depression, hypothyroidism, ASCVD, migraine who presented in transfer from [facility] for further workup of headache, dry cough, rash and fever of unknown origin. He has not had a fever since admission yesterday afternoon. His rash has improved and he continues to have a rare dry cough. He is feeling better today.He has undergone extensive workup including CT Head, CT chest/abdomen/pelvis, LP with studies, XR sinuses which has been negative thus far. Coxsackie B is considered as a possibility which carries a 1 week self limited course. He appears to be improving. Plan on discontinuing Abx today and monitoring for fever or worsening symptoms with a low threshold to restart. #Fever of Unknown Origin #Dry Cough #Rash #Headache - D/C ceftriaxone 2g IV q12hrs, acyclovir, and doxycycline 100 mg IV q12hrs - XR sinuses negative - Blood cultures NGTD - UA negative - Will continue to monitor OSH pending labs ?? #Hx of Pancreatic Transplant - Continue Cellcept 500 mg bid - Continue Prograf 2 mg bid - Lipase daily - CD4/CD8 ratio pending - SSI, sensitive (confirm need to start with Dr. Melgar in AM) ?? #Hypothyroidism - Continue levothyroxine ?? #Chronic back pain/ Scoliosis - Continue gabapentin ?? #CAD - continue ASA #Other - DVT ppx: Lovenox - Diet/Fluids: Regular - Access: PIV - Code Status: FULL - Dispo: Pending course Tamiko Waterman MD PGY - 2, Internal Medicine 08/01/2017 I have seen the patient and reviewed the resident's above history and physical exam. I agree with the details as written. The assessment and plan were formulated in discussion with me and I agree with them as documented. Pascual Khalil MD IPI Certification I certify that I am a D-H credentialed attending provider with admitting privileges and that the patient meets or has met medical necessity to require an inpatient IPI level of care meeting a minimum of two midnights or is on the CMS inpatient only procedure list (status C) due to: fever concerning for acute viral illness requiring close monitoring given immunocompromised state Ni Barraza RN - 07/31/2017 4:15 PM EST 1610 Patient arrived to the floor via ambulance alert and orientated, reports 5/10 pain, headache,ambulated from stretcher to room. Team paged to update patient arrival and for orders. 1715 Team on floor to assess patient. at bedside documented in this encounter H&P Notes Alyson Moreau MD - 07/31/2017 5:17 PM EST [facility] [place] Department of Internal Medicine Inpatient History and Physical Note Patient info: Richard Hsu 1965 [id number] Anna Mullen MD Date of Admission: 07/31/2017 ( Hospital Day 0 days ) Attending: Dr. Mccrary Service: Medicine Chief Complaint: No chief complaint on file. Patient ID: Richard Hsu is a 51 y.o. male with a history of chronic back pain and DM1 s/p DDPT 08/27/13, HTN, depression, hyperthyroidism, ASCVD, migraine who presented in transfer from [facility] for further workup of headache, dry cough, rash and fever of unknown origin. History of Present Illness: Pt was facationing a month ago in [place] then returned to [place]. Two days after returning home he developed headache and dry cough. Headache was described as occipital radiating up the back of his head. He presented to the ED for headache and dizziness where imaging (CT head) which were unremarkable. Headache initially improved but worsened and he presented to his PCP who ordered an MRI brain whichwas unremarkable. Two weeks prior to presentation he developed night sweats; he subsequently developed high fever and dry cough with his headaches. He subsequentlyhe presented to the ED at [facility] where rectal temperature was 102.9.and he was admitted for further workup. Pt reports low grade temperature during his admission that would subside in the afternoon and then spike mid-afternoon accompanied by severe headache and rash (erythema of the neck and chest, inner thighs and abdomen). However, of note fever was in the setting of tylenol. He endorses some SOB, particularly when coughing. He also endorses one episodes of lightheadedness with his fevers and headaches prior to presenting to the ER. He denies any syncope or falls. He denies any sick contacts. Patient reports his dog had kennel cough approximately a month prior topresentation. Course at [facility]: Temperature was 38.9 degrees on presentation,with vital signs otherwise stable. CXR and UA were unremarkable He was started on empiric Ceftriaxone and Azithromycin initially, azithromycin was transitioned to doxycycline on day two of admission for coverage of tick bourne illness. CT head showed findings suggestive of left sphenoid acute sinusitis only. CTAP showed s/p pancreatic transplant and umbilical hernia only. CT Chest showed small b/l pleural effusions only. Labs were notable for a WBC count of 2.82 with a normal differential. Lipase wnl, and a mild transaminitis (AST 48, ALT 68, ALP 146). Albumin 3.1. Lipase 131. Hemoglobin 11.8. Sodium 134 BUN 9, creatinin 1.22. LP was performed and showed 1 WBC, 9 RBCs, glucose 61, total protein 44. CSF culture and gram stain were negative. Per patient report, opening pressure was elevated. CSF west Nile RNA negative, Lyme negative, CSF Adenovirus negative. Anaplasma DNA PCR negative, CSF EBV negative. A phagocytophil DNA PCR negative, B divergens/MO-1 PCR negative. Babesia PCR negative, Lyme negative, CMV PCR negative, E chaffeensis DNA PCR negative, E ewingii/canis DNA PCR negative, E muris-like DNA PCR negative, EBV PCRnegative, Parvovirus negative. Influenza panel negative. Blood cultures showed no growth at 72 hours. IgG 1180, IgA 89 and IgM 79. ROS: Constitutional - Positive for fevers, chills, loss of appetite negative for weight gain/loss HEENT - + Headache Negative for diffculty swallowing, nasal congestion, postnasal drip, visual changes, blurriness, or visual loss, change in hearing or tinnitus. Cardiovascular - Negative for chest pain, palpitations, dyspnea on exertion, paroxysmal nocturnal dyspnea, orthopnea, syncope Respiratory - + shortness of breath, + dry cough, negative wheezeor sputum production Gastrointestinal - + Constipation + nausea Negative for abdominal pain,omiting, acid reflux, dysphagia, diarrhea, melena, hematochezia. Genitourinary - Negative for dysuria, urgency, frequency, hesitancy or hematuria Endocrine - Negative for polydipsia, polyuria, palpitations, cold or heat intolerance or change in skin or nails. Heme/Lymph - + night sweats Negative for easy bruising or bleeding, lymph node swelling Musculoskeletal - Negative for myalgias, arthralgias, joint swelling, erythema or warmth, weakness Skin - + rash, no new concerning lesions Neurological - + headaches, negative changes in hearing or vision, blurry vision, double vision, dizziness, focal or generalized weakness or sensory deficit, dysarthria, Psych - Negative for depression, anxiety, sleep disturbance Past Medical History: Past Medical History: Diagnosis Date ??? [...] disease, male 5 years ago ED ??? Headache since 12 years old migraaines ??? Heart [...] 1976 stroke age [age] ??? Other ill-defined conditions 3 years ago Tardive dyskinesia ??? Papillary fibroelastoma of heart aortic valve ??? Severe headache Past Surgical History: Past Surgical History: Procedure Laterality Date ??? APPENDECTOMY ??? BRAIN SURGERY 1976 stroke paralyze left side neck down ??? CARPAL TUNNEL RELEASE ??? CREATED BY INTERFACE EGD-BIOPSY Procedure Date: 07/18/2009 ??? CREATED BY INTERFACE Entered not Verified Procedure Date: 10/24/2010 ??? PRO COLONOSCOPY, DIAGNOSTIC N/A 10/24/2014 COLONOSCOPY, DIAGNOSTIC performed by Anna Rapp MD at [facility] ??? PRO TRANSPLANT ALLOGRAFT PANCREAS 08/28/2013 @PANCREATIC TRANSPLANT performed by Iraj Keller MD at [facility] ??? PRO TRANSPLANT, PREP DONOR PANCREAS 08/28/2013 @PREPARATION CADAVERIC PANCREAS, STANDARD performed by Iraj Keller MD at [facility] ??? PRO UNLISTED PROCEDURE, MUSCULOSKELETAL SYSTEM, GENERAL 10 years carpel tunnel ??? PRO UPPER GI ENDOSCOPY, BIOPSY 12/31/2011 UPPER GASTROINTESTINAL ENDOSCOPY,WITH BIOPSY SINGLE OR MULTIPLE performed by CLAYTON BHAKTA at [facility] ??? PRO UPPER GI ENDOSCOPY, BIOPSY N/A 08/15/2015 EGD WITH BIOPSY performed by Clayton Bhakta MD at [facility] ??? SHOULDER SURGERY ??? UPPER GI ENDOSCOPY, EXAM 12/31/2011 UPPER GI ENDOSCOPY performed by CLAYTON BHAKTA at [facility] Medication History: No outpatient prescriptions have been marked as taking for the 07/31/17 encounter (Hospital Encounter). Allergies: Allergies Allergen Reactions ??? Nexium [Esomeprazole Magnesium] Diarrhea Any acid reflux medication causes severe diarrhea ??? Prilosec [Omeprazole Magnesium] Diarrhea ??? Reglan [Metoclopramide Hcl] TD ??? Simvastatin Social History: Social History Social History ??? Marital status: Spouse name: N/A ??? Number of children: N/A ??? 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 Smoking status: Never Smoker ??? Smokeless tobacco: Never Used ??? Alcohol use No Comment: history of abuse, stopped 1996 ??? Drug use: No ??? Sexual activity: Yes Comment: deferred Other Topics Concern ??? Exercise: Patient Reported Yes yard work, push ups situps ??? 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 Lives with Family History: Family History Problem Relation Age of Onset ??? Alcohol Abuse Father ??? Coronary Artery Disease Maternal Grandmother ??? Diabetes Maternal Grandmother ??? Heart Disease Maternal Grandmother ??? High Blood Pressure Mother ??? High Blood Pressure Brother ??? Stroke Maternal Grandfather PHYSICAL EXAM: Vitals: Most Recent Vitals: 07/31/17 1938 BP: (!) 156/96 Resp: 16 Temp: 37.2 ??C (99 ??F) SpO2: 96% Wt Readings from Last 3 Encounters: 02/11/17 94.3 kg (207 lb 12.8 oz) 08/06/16 93.8 kg (206 lb 12.8 oz) 02/22/16 94.2 kg (207 lb 9.6 oz) Physical Exam: Gen: Appropriate and cooperative, sitting up in chair in NAD, AAOX3 HEENT: EOMI, Anicteric sclera, MMM, OP clear Neck: Supple with normal ROM, No cervical LAD appreciated, JVP flat, CV: RRR, S1 and S2 noted, 2/6 systolic ejection murmur loudest at LSB noted Resp: mildly diminished breath sounds b/l, no wheezes or crackles noted Abd: +normoactive BS, no HSM or masses appreciated, abdomen distended with mild TTP over umbilical hernia only. EXT: No cyanosis or edema, DP pulses 2+ and symmetric bilaterally Skin: Erythema of neck and mild erythema of back. Scattered pustules on back, abdomen and extremities noted Neuro: CN: II-XII grossly intact. No focal deficits Labs: No results for input(s): WBC, HGB, HCT, PLATELET, NEUTROABS in the last 168 hours. No results for input(s): NA, K, CL, CO2, BUN, CREATININE in the last 168 hours. No results for input(s): CALCIUM, MAGNESIUM, PHOS in the last 168 hours. No results for input(s): AST, ALT, ALKPHOS, BILITOT, BILIDIR in the last 168 hours. No results for input(s): INR, PT, PTT in the last 72 hours. Microbiology: OSH blood cultures no growth at 72 hours. Imaging Studies: OSH CT Chest showed b/l pleural effusions CTAP s/p post pancreatic transplant otherwise unremarkable. Assessment: Richard Hsu is a 51 y.o. male with a history of chronic back pain and DM1 s/p DDPT 08/27/13, HTN, ASCVD, depression, hypothyroidism, migraine who presented in transfer from [facility] for further workup of headache, dry cough, rash and fever of unknown origin. He has had fevers for seven days and undergone an extensive workup including CT head, CT Chest and CTAP, LP and viral/ bacterial serologies. Workup has been notable only for findings suggestive of sinusitis on CT, as well as LP findings possibly consistent with an aseptic meningitis (elevated protein and per patient report). Given history of transplant/immunocompromised status differential is broad. Will continue empiric antibiotics (Ceftriaxone and Doxycycline), and consult ID for further workup. Will also consider duplexes to evaluate for DVT given history of recent travel however less likely given cyclical nature of fever. Rash may be part of viral prodrome vs fever related heat rash. Given headache with CT findings suggesting sinusitis and history of chronic otitis media will reimage sinuses to evaluate for mastoiditis. Plan: Admit to Green Team Pager #[phone] #Fever of Unknown Origin #Cough #Rash #Headache -continue antibiotics- ceftriaxone 2g IV q12hrs and doxycycline 100 mg IV q12hrs -XR sinuses -CRP/ESR -Blood cultures -UA with reflex culture -Consult ID # Hx of Pancreatic Transplant -Continue Cellcept 500 mg bid -Continue Prograf 2 mg bid -Prograf trough -trend lipase -IgG -CD4/CD8/CD19 -trend CBC with diff to follow absolute lymphocyte count -Case discussed with Dr Melgar #Hypothyroidism -Continue levothyroxine # Chronic back pain/ Scoliosis -Continue gabapentin #CAD -continue ASA # Routine - DVT ppx:SCDs - GI ppx: protonix - Diet/Fluids: Regular Diet - Code Status: : Full Code - Dispo: Admit to floor, dispo pending course Alyson Moreau MD PGY-1, Internal Medicine Green Team [phone] 07/31/2017 Associated attestation - Rama Mccrary MD - 08/01/2017 1:57 PM EST Attending Attestation Please see Dr. Moreau's note for details of the patient history of presentation and data. I have discussed, reviewed and agree with the documented History, Physical findings, Assessment and Plan of care. I have examined the patient myself and personally reviewed all studies. In addition, I certify that I am a D-H credentialed attending provider with admitting privileges and that the patient meets or has met medical necessity to require an inpatient IPI level of care meeting a minimum of two midnights or is on the CMS inpatient only procedure list (status C) due to: fever of unknown origin. 51 y/o M with PMHx IDDM c/b CKD s/p kidney&renal transplant 2011 on chronic immunosuppression who presented to [facility] [place] for further workup and management of fever. Pt with approximately 1 month hx headache a/w fever, chills a/w unilateral decreased hearing. Stable sx for 2 weeks, which then progressed to severe occipital headache a/w fever and maculopapular rash (more prominent with fever, improved with defervescence). Admitted to [facility] - underwent extensive investigation including CT head/chest/abd/pelvis, CSF eval neg, extensive microbiological workup sent all negative thus far (pending workup to be followed up by PCP). Txf to [facility] [place] for further workup - here is noted to be hemodynamically stable, appears to be chronically ill but not in acute distress, has soft systolic ejection murmur LUSB, remnants of rash noted - blanching papular/pustular rash scattered over body. - Unclear etiology of FUO - pt on CTX/Doxycycline - c/w same. Will fup infectious workup from OSH - C/S transplant ID - Will check Prograf level, trend lipase and Cr, c/w current immunosuppression. Will d/w Dr. Melgar re further workup/management Rama Mccrary MD 07/31/2017 documented in this encounter Miscellaneous Notes Initial Assessments - Lisa Jackson RN - 08/03/2017 11:40 AM EST Office of Care Management Initial Assessment Lisa Jackson RN reviewed record and discussed patient with Care Team. Source of Information: EDH review, rounds, patient inter Introduced self/reviewed role; services accepted. Reason for Hospitalization: Reason for Admission as Stated by Patient: fever, sweats, not feeling well Past Medical History: Diagnosis Date ??? ASCVD [...] disease, male 5 years ago ED ??? Headache since 12 years old migraaines ??? Heart [...] 1976 stroke age [age] ??? Other ill-defined conditions 3 years ago Tardive dyskinesia ??? Papillary fibroelastoma of heart aortic valve ??? Severe headache Hospitalizations Within the Past 30 Days: none Anticipated Length Of Stay (If known): Expected Length of Hospitalization: 5 days Current Decision-Making Capacity: Alert and oriented x 4 Advance Care Planning: Not on file Current Coping/Education/Information Needs: Patient is waiting to be discharged home Current Functional Ability: Patient is independent Functional Status Prior to Admission: Patient was independent prior to admission Home Environment: Lives in a two story home has a bathroom and a bedroom on the first floor. Patienthas 13 stairs in the home to the second floor. Social & Family Supports/Community Resources: Patient lives with his she will assist him asneeded Behavioral Health History: None Substance Use/Abuse: None Other Pertinent/Service Specific Information: None Health/Prescription Coverage: Primary Insurance: [employer] [place] Secondary Insurance: N/A Prescription Coverage: See above Preferred Pharmacy: [id number] - [address] Other: N/A Primary Care Provider: Anna Mullen MD [phone] Patient/Caregiver Goals of Treatment: Patient plans to return home when medically ready Potential Needs for Transition of Care: Rehab/SNF: N/A Home Health: N/A DME: N/A Dialysis: N/A Community Resources: N/A Transportation: will provide transportation Other: N/A Anticipated Barriers to Discharge/Special Considerations: None Plan: patient plans to return home with when medically ready. A member of the Care Management team will continue to monitor progress, follow for continuity of care and assist with transition of care planning. Lisa Jackson RN Pager: [phone] Plan of Care - Polina Rich RN - 08/03/2017 2:35 AM EST Problem: Patient Care Overview Goal: Plan of Care Review Outcome: Ongoing (Interventions Implemented as Appropriate) 08/02/17 0746 08/02/17 5596 Plan of Care Review Progress improving -- Coping/Psychosocial Plan Of Care Reviewed With -- patient OUTCOME EVALUATION NOTE: OUTCOME SUMMARY: Brant had a good night. Slept through the night, only awake for vitals. VSS, no temps overnight. PLAN MOVING FORWARD: Home today INDIVIDUALIZED FALL PREVENTION INTERVENTIONS: Patient-specific fall risk factors per assessment: [current deficits]: none Assistance [level of assistance required for transfers and ambulation]: Independent Supervision [direct monitoring required during toileting and ADLs]: Independent with ADLs Surveillance [continuous indirect monitoring]: Purposeful rounding, call holder within reach Patient-specific fall prevention interventions for sensory deficits provided, if applicable: [X] Yeslighting adjusted, nonslip socks CPG GOAL OUTCOME EVALUATION: Goal: Individualization & Mutuality Outcome: Ongoing (Interventions Implemented as Appropriate) 08/01/17 1321 Individualization Patient Specific Preferences likes sugar free drinks Patient Specific Goals to return home Mutuality/Individual Preferences What Anxieties, Fears or Concerns Do You Have About Your Health or Care? none, agrees w/ MD's plan of care What Questions Do You Have About Your Health or Care? none What Information Would Help Us Give You More Personalized Care? likes a quiet room Goal: Fall Prevention-Safe Patient Handling Outcome: Ongoing (Interventions Implemented as Appropriate) 08/02/17 0746 08/02/17 0800 08/02/172118 Musculoskeletal Interventions Muscle Strengthening activity/mobility promoted;mobility in bed promoted -- -- Activity and Safety Assistive Device None -- -- Daily Care Interventions Self-Care Promotion -- independence encouraged -- Gupta Fall Risk History of Falling -- -- 0 Secondary Diagnosis -- -- 15 Ambulatory Aids -- -- 0 Intravenous Therapy/Heparin/Saline Lock -- -- 20 Gait/Transferring -- -- 0 Mental Status -- -- 0 Score -- -- 35 OTHER Gupta Fall Risk -- -- Med Restraint Interventions Safety Promotion/Fall Prevention -- -- activity supervised;fall prevention program maintained;safetyround/check completed;toileting scheduled Positioning Body Position -- -- independent Goal: Infection Control Outcome: Ongoing (Interventions Implemented as Appropriate) 08/02/172118 Safety Interventions Isolation Precautions standard precautions maintained (immunosuppressed) Infection Prevention single patient room provided;visitors restricted/screened Coping Strategies Supportive Measures active listening utilized;goal setting facilitated;self-care encouraged;self-reflection promoted Goal: Discharge Needs Assessment 08/01/17 1320 Discharge Needs Assessment Concerns To Be Addressed no discharge needs identified Readmission Within The Last 30 Days no previous admission in last 30 days Equipment Needed After Discharge none Discharge Disposition home or self-care Current Health Anticipated Changes Related to Illness none Activity/Self Care Review of Systems Equipment Currently Used at Home none Living Environment Transportation Available family or friend will provide Plan of Care - Juan Carlos Chau RN - 08/02/2017 3:26 PM EST Problem: Patient Care Overview Goal: Plan of Care Review Outcome: Ongoing (Interventions Implemented as Appropriate) 08/02/17 0746 08/02/17 0900 Plan of Care Review Progress improving -- Coping/Psychosocial Plan Of Care Reviewed With -- patient OUTCOME EVALUATION NOTE: OUTCOME SUMMARY: Pt greeted and identified. He is pleasant and cooperative. States he slept well. Denies c/o headache or neck discomfort. Per EDH no fever last night , now off antibx's ~20 hrs. Remainsindependent w/ ADL's. Tols diet well, now on reg diet. States to dr. Melgar that he feels well. PLAN MOVING FORWARD: Cont orders as written. Cont I&O's. Cont to watch for fevers, s/s of not feeling well. May be d/c to home tomorrow if conts w/o symptoms per Dr. Melgar. INDIVIDUALIZED FALL PREVENTION INTERVENTIONS: Patient-specific fall risk factors per assessment: [current deficits]: None, steady on feet, independent no use of narcotics, no tubes/drains Assistance [level of assistance required for transfers and ambulation]: independent Supervision [direct monitoring required during toileting and ADLs]: independent Surveillance [continuous indirect monitoring]: Hourly rounding, masimo, skin surveillance, call bellwith in reach Patient-specific fall prevention interventions for sensory deficits provided, if applicable: [X] No CPG GOAL OUTCOME EVALUATION: Goal: Individualization & Mutuality Outcome: Ongoing (Interventions Implemented as Appropriate) 08/01/17 1321 Individualization Patient Specific Preferences likes sugar free drinks Patient Specific Goals to return home Mutuality/Individual Preferences What Anxieties, Fears or Concerns Do You Have About Your Health or Care? none, agrees w/ MD's plan of care What Questions Do You Have About Your Health or Care? none What Information Would Help Us Give You More Personalized Care? likes a quiet room Goal: Fall Prevention-Safe Patient Handling Outcome: Ongoing (Interventions Implemented as Appropriate) 08/02/17 0746 08/02/17 0808/02/17 09 Musculoskeletal Interventions Muscle Strengthening activity/mobility promoted;mobility in bed promoted -- -- Activity and Safety Assistive Device None -- -- Daily Care Interventions Self-Care Promotion -- independence encouraged -- Gupta Fall Risk History of Falling -- -- 0 Secondary Diagnosis -- -- 15 Ambulatory Aids -- -- 0 Intravenous Therapy/Heparin/Saline Lock -- -- 20 Gait/Transferring -- -- 0 Mental Status -- -- 0 Score -- -- 35 OTHER Gupta Fall Risk -- -- Med Restraint Interventions Safety Promotion/Fall Prevention -- nonskid shoes/slippers when out of bed -- Positioning Body Position -- independent -- Goal: Infection Control Outcome: Ongoing (Interventions Implemented as Appropriate) 08/02/1779908/02/17 09 Safety Interventions Isolation Precautions other (see comments) (immunosuppress) -- Infection Prevention single patient room provided -- Coping Strategies Supportive Measures -- active listening utilized Goal: Discharge Needs Assessment Outcome: Ongoing (Interventions Implemented as Appropriate) 08/01/17 1320 Discharge Needs Assessment Concerns To Be Addressed no discharge needs identified Readmission Within The Last 30 Days no previous admission in last 30 days Equipment Needed After Discharge none Discharge Disposition home or self-care Current Health Anticipated Changes Related to Illness none Activity/Self Care Review of Systems Equipment Currently Used at Home none Living Environment Transportation Available family or friend will provide Plan of Care - Ni Barraza RN - 08/02/2017 8:13 AM EST Problem: Patient Care Overview Goal: Plan of Care Review Outcome: Ongoing (Interventions Implemented as Appropriate) 08/02/17 0746 Plan of Care Review Progress improving Coping/Psychosocial Plan Of Care Reviewed With patient OUTCOME EVALUATION NOTE: OUTCOME SUMMARY: Patient sleeping throughout the night, states he is feeling better and more rested. PLAN MOVING FORWARD: Continue to use IS for enhanced bronchial hygiene INDIVIDUALIZED FALL PREVENTION INTERVENTIONS: Patient-specific fall risk factors per assessment: [current deficits]: na Assistance [level of assistance required for transfers and ambulation]: independent Supervision [direct monitoring required during toileting and ADLs]: standby Surveillance [continuous indirect monitoring]: Cris Toscano Patient-specific fall prevention interventions for sensory deficits provided, if applicable: [X] No CPG GOAL OUTCOME EVALUATION: Goal: Individualization & Mutuality Outcome: Ongoing (Interventions Implemented as Appropriate) 08/01/17 1321 Individualization Patient Specific Goals to return home Goal: Fall Prevention-Safe Patient Handling 08/01/17202908/02/17 0746 Musculoskeletal Interventions Muscle Strengthening -- activity/mobility promoted;mobility in bed promoted Activity and Safety Assistive Device -- None Daily Care Interventions Self-Care Promotion -- independence encouraged;BADL personal objects within reach Positioning Body Position independent -- Goal: Infection Control Outcome: Ongoing (Interventions Implemented as Appropriate) 08/02/17 0746 Safety Interventions Isolation Precautions standard precautions maintained Infection Prevention rest/sleep promoted Coping Strategies Supportive Measures active listening utilized Goal: Discharge Needs Assessment Outcome: Ongoing (Interventions Implemented as Appropriate) 08/01/17 1320 Discharge Needs Assessment Concerns To Be Addressed no discharge needs identified Readmission Within The Last 30 Days no previous admission in last 30 days Discharge Disposition home or self-care Goal: Interdisciplinary Rounds/Family Conf Outcome: Ongoing (Interventions Implemented as Appropriate) 08/02/17 0746 Interdisciplinary Rounds/Family Conf Participants nursing;patient Plan of Care - Juan Carlos Chau RN - 08/01/2017 1:32 PM EST Problem: Patient Care Overview Goal: Plan of Care Review Outcome: Ongoing (Interventions Implemented as Appropriate) 08/01/17 0800 08/01/17 1322 Plan of Care Review Progress -- progress toward functional goals as expected Coping/Psychosocial Plan Of Care Reviewed With patient -- OUTCOME EVALUATION NOTE: OUTCOME SUMMARY: Pt greeted and identified. He is pleasant and cooperative. Denies need for pain meds. States posterior neck discomfort less intense then previous. Is independent w/ self care. Please see ED for assessments. Dr. Melgar in to examine pt and discuss plan of care . Opportunity for questions and answers provided. Pt agrees w/ plan. IV mg+ replaced this shift. Pt mrary carb control diet in full portions w/o c/o's. Had BM today. rash improved per pt and primary MD PLAN MOVING FORWARD: Per orders, iv antibx's stopped. Will see how pt responds next 24-48 hrs. Cont to monitor VS, I&O's, daily wt's. Cont to support. INDIVIDUALIZED FALL PREVENTION INTERVENTIONS: Patient-specific fall risk factors per assessment: [current deficits]: none Assistance [level of assistance required for transfers and ambulation]: independent Supervision [direct monitoring required during toileting and ADLs]: Independent, reliable to use call holder prn Surveillance [continuous indirect monitoring]: Hourly rounding, masimpo, skin surveillance, call holder with in reach Patient-specific fall prevention interventions for sensory deficits provided, if applicable: [X] No CPG GOAL OUTCOME EVALUATION: Med Student Progress Note - MéndezTato - 08/01/2017 7:22 AM EST Internal Medicine Medical Student Progress Note Admit date: Hospital day: Attending 07/31/2017 1 Rama Mccrary MD ID: Richard Hsu is a 51 y.o. male with a history of DM1 s/p DPPT, CVA, migraines, HTN, hyperthyroidism, migraines, and depression who was transferred from an OSH for w/u of NOEL, dry cough, rash, and fever of unknown origin. 24 H: -Fever of 38C @ 5PM -XR of sinuses Subjective: Feels well,though he says he commonly feels well in the morning. He is complaining of occipital painbilaterally that was exacerbated by neck extension that starts posterior, transfers to the front, eyes feel like they're sinking into my head. NOEL is alleviated with a cold compress. He stated that the fever rash cough headache all wax and wane simultaneously. He denies having any sick contacts and His has not been sick. ROS: Constitutional - fevers, chills, loss of appetite negative for weight gain/loss HEENT - Headache, diffculty swallowing, nasal congestion, postnasal drip, visual changes, blurriness, or visual loss, change in hearing or tinnitus. Respiratory - shortness of breath, dry cough, wheezeor sputum production Musculoskeletal - Negative for myalgias, arthralgias, joint swelling, erythema or warmth, weakness Skin - rash, new concerning lesions Neurological - headaches, changes in hearing or vision, blurry vision, double vision, dizziness, focal or generalized weakness or sensory deficit, dysarthria (O) Meds Scheduled Meds: ??? sodium chloride 0.9 % 5 mL Intravenous BID ??? senna-docusate 2 tablet Oral BID ??? aspirin 81 mg Oral Daily ??? gabapentin 300 mg Oral QAM ??? gabapentin 900 mg Oral Nightly ??? levothyroxine 150 mcg Oral QAM ??? lisinopril 20 mg Oral Daily ??? mycophenolate 500 mg Oral BID ??? pantoprazole 40 mg Oral BID ??? tacrolimus 2 mg Oral BID ??? traZODone 50 mg Oral Nightly ??? acyclovir 1,000 mg Intravenous Q8H ??? cefTRIAXone 2 g Intravenous Q24H ??? doxycycline 100 mg Intravenous Q12H Continuous Infusions: PRN Meds:.sodium chloride 0.9 %, lidocaine, ondansetron OR ondansetron, acetaminophen Vitals Last value Range last 24 hrs Temperature Temp: 36.9 ??C (98.4 ??F) Temp: [36.9 ??C (98.4 ??F)-38 ??C (100.4 ??F)] Heart Rate 64 Heart Rate: -- Blood Pressure BP: 131/74 BP: (131-156)/(74-96) Respiratory Rate Resp: 18 Resp: [16-18] SpO2 SpO2: 95 % SpO2: [93 %-97 %] 07/31 0701 - 08/01 0700 In: 1630 [P.O.:1480] Out: 2049 [Urine:2049] Wt Last Physical Exam General: Sitting up in chair, NAD HEENT: Tender to palpation over mastoid bilaterally. Sclera non-icteric, oropharynx non-inflamed without exudates. CV: Regular rate and rhythm without murmurs/gallops/rubs, S1 and S2 normal Pulm: Normal inspiratory effort without use of accessory muscles, clear to auscultation bilaterally,coarser breath sounds on left. Derm: Warm, dry, diffuse erythematous papules on trunk. MSK: Company Driver strength +5 bilaterally, bicep strength +5 bilaterally. Neuro: PERRLA, EOMI, visual greco normal on confrontation, CNV intact, Hearing impaired on left side, Left CNXI weakness on shrug test. Pertinent Labs/Micro CRP: 37.9 (H, <4.9) Immunodeficiency panel: CD3: 89% (H) (62-87) CD4: 23% (L) (35-63) CD8: 64% (H) (10-35) Absolute CD4: 330 (329-1427), prior CD4 on unknown date was 281 Ig (WNL) IgA: 89 (WNL) IgM: 79 (WNL) CSF analysis: 1 WBC, 9 RBCs, glucose 61, total protein 44. CSF culture and gram stain were negative.Per patient report, opening pressure was elevated. Plasma: ?? CMV DNA PCR: neg ?? EBV PCR: neg ?? Parvovirus B19 PCR: neg Blood: ?? Anaplasma phagocytophilum PCR: neg ?? Ehrlichia chaffeensis PCR: neg ?? Ehrlichia ewingii/canis PCR: neg ?? Ehrlichia muris-like: PCR ?? Parasite exam: negative Cerebrospinal fluid: ?? West Nile Virus PCR: neg ?? CMV PCR: neg ?? HSV1, 2 PCR: neg & neg ?? Varicella zoster PCR: neg ?? Borrelia burgdorferi PCR: neg ?? Borrelia mayonii PCR: neg ?? Borrelia garinii/afzelli: neg BK virus and Adenovirus pending at [facility] Component Value Date/Time SPGRAVITYUA 1.011 07/31/20172054 PHUADIP 6.0 07/31/20172054 PROTEINUADIP Negative 07/31/20172054 GLUCOSEU Negative 07/31/20172054 KETONESUA Negative 07/31/20172054 UROBILIUADIP Normal 07/31/20172054 BLOODUADIP Negative 07/31/20172054 NITRATEUA Negative 07/31/20172054 LEUKOESTERUA Negative 07/31/20172054 WBCUA Not Present 02/11/2017 0821 BILIRUBINUA Negative 07/31/20172054 Recent Labs 08/01/17 0420 07/31/17 2147 07/31/172006 WBC 4.3 5.8 5.8 5.8 -- HGB 11.7* 12.0* -- HCT 34.4* 34.2* -- PLATELET 189 210 -- PT -- -- 13.6 INR -- -- 1.1 NA 138 -- -- K 4.2 -- -- CL 100 -- -- CO2 26 -- -- BUN 10 -- -- CREATININE 0.92 -- -- GLUCOSE 105 -- -- CALCIUM 8.7 -- -- MAGNESIUM 0.66* -- -- ALKPHOS 131* -- -- AST 42* -- -- ALT 52 -- -- Recent Labs 08/01/17 0420 PROT 6.3 ALBUMIN 3.3 BILITOT 0.5 BILIDIR 0.1 AST 42* ALT 52 ALKPHOS 131* Imaging/Studies (A/P) In summary, Richard Hsu is a 51 y.o. male with a history of DM1 s/p DPPT, CVA, migraines, HTN, hyperthyroidism, migraines, and depression who was transferred from an OSH for w/u of NOEL, dry cough, rash, and fever of unknown origin in the setting of immunosuppression. His exam is notable for diffuse papillary rash, occipitomastoid tenderness bilaterally and left-sided auditory impairment and accessory muscle weakness. Labs are notable for elevated CRP and absolute CD8+, negative blood, plasma, and CSF serologies, negative urinalysis, mild normocytic anemia, hypomagnesemia, and elevated alk phos and AST. Imaging notable for XR negative for mastoiditis. #: Fever of Unknown Origin DDx: Infectious: Coxsackie B, Echovirus, MAC, Leptospirosis, Mosquito-borne arboviruses (travel to [place]), Tick-borne arboviruses (r/o'd by serologies). Tick-borne illnesses and bacterial meningitis have been ruled out, so ceftriaxone and doxycycline can be d/c'd. Coxsackie B and other Enteroviruses may fit clinical picture of fever with headache and respiratory component. Rash not likely viral exanthem. Plan: ?? D/c IV abx ?? Monitor body temperature and skin findings closely ?? F/u on pending cultures at OSH ?? Further workup pending clinical course Tato Méndez, [facility] Internal Medicine Health Care Liaison Page: [phone] 08/01/17 7:23 AM documented in this encounter Plan of Treatment Not on filedocumented as of this encounter Procedures Procedure Name Priority Date/Time Associated Comments Diagnosis HEMOGRAM Routine 08/03/2017 4:16 AM Results f or this EST procedure are i n the results section. DIFFERENTIAL, Routine 08/03/2017 4:16 AM Results for this AUTOMATED EST procedure are i n the results section. CBC (WITH DIFF) Routine 08/03/2017 4:16 AM EST MAGNESIUM Routine 08/03/2017 4:16 AM Results f or this EST procedure are i n the results section. LIPASE Routine 08/03/2017 4:16 AM Results f or this EST procedure are i n the results section. HEPATIC FUNCTION PANEL Routine 08/03/2017 4:16 AM Results for this EST procedure are i n the results section. BASIC METABOLIC PANEL Routine 08/03/2017 4:16 AM Results for this (NON-FASTING) EST procedure are in the results section. POCT GLUCOSE Routine 08/02/2017 7:38 AM Results f or this EST procedure are i n the results section. POCT GLUCOSE Routine 08/02/2017 5:20 AM Results f or this EST procedure are i n the results section. SCAN, PERIPHERAL BLOOD Routine 08/02/2017 4:45 AM Results for this EST procedure are i n the results section. HEMOGRAM Routine 08/02/2017 4:45 AM Results f or this EST procedure are i n the results section. DIFFERENTIAL, Routine 08/02/2017 4:45 AM Results for this AUTOMATED EST procedure are i n the results section. CBC (WITH DIFF) Routine 08/02/2017 4:45 AM EST MAGNESIUM Routine 08/02/2017 4:45 AM Results f or this EST procedure are i n the results section. LIPASE Routine 08/02/2017 4:45 AM Results f or this EST procedure are i n the results section. HEPATIC FUNCTION PANEL Routine 08/02/2017 4:45 AM Results for this EST procedure are i n the results section. BASIC METABOLIC PANEL Routine 08/02/2017 4:45 AM Results for this (NON-FASTING) EST procedure are in the results section. POCT GLUCOSE Routine 08/01/2017 11:53 Results for this PM EST procedure are i n the results section. POCT GLUCOSE Routine 08/01/2017 8:12 PM Results f or this EST procedure are i n the results section. POCT GLUCOSE Routine 08/01/2017 4:09 PM Results f or this EST procedure are i n the results section. POCT GLUCOSE Routine 08/01/2017 11:32 Results for this AM EST procedure are i n the results section. POCT GLUCOSE Routine 08/01/2017 7:57 AM Results f or this EST procedure are i n the results section. HEMOGRAM Routine 08/01/2017 4:20 AM Results f or this EST procedure are i n the results section. DIFFERENTIAL, Routine 08/01/2017 4:20 AM Results for this AUTOMATED EST procedure are i n the results section. CBC (WITH DIFF) Routine 08/01/2017 4:20 AM EST MAGNESIUM Routine 08/01/2017 4:20 AM Results f or this EST procedure are i n the results section. LIPASE Routine 08/01/2017 4:20 AM Results f or this EST procedure are i n the results section. HEPATIC FUNCTION PANEL Routine 08/01/2017 4:20 AM Results for this EST procedure are i n the results section. BASIC METABOLIC PANEL Routine 08/01/2017 4:20 AM Results for this (NON-FASTING) EST procedure are in the results section. SCAN, PERIPHERAL BLOOD Routine 07/31/2017 9:47 PM Results for this EST procedure are i n the results section. CD4+8 Routine 07/31/2017 9:47 PM Results f or this EST procedure are i n the results section. CD19 Routine 07/31/2017 9:47 PM Results f or this EST procedure are i n the results section. HEMOGRAM Routine 07/31/2017 9:47 PM Results f or this EST procedure are i n the results section. DIFFERENTIAL, Routine 07/31/2017 9:47 PM Results for this AUTOMATED EST procedure are i n the results section. SEDIMENTATION RATE Routine 07/31/2017 9:47 PM Res ults for this EST procedure are i n the results section. CBC (WITH DIFF) Routine 07/31/2017 9:47 PM EST XR SINUSES Routine 07/31/2017 9:18 PM Results f or this EST procedure are i n the results section. URINALYSIS WITH REFLEX Routine 07/31/2017 8:55 PM Results for this CULTURE EST procedure are i n the results section. BLOOD CULTURE STAT 07/31/2017 8:15 PM Results for this EST procedure are i n the results section. BLOOD CULTURE STAT 07/31/2017 8:08 PM Results for this EST procedure are i n the results section. CRP, ACUTE Routine 07/31/2017 8:07 PM Results f or this INFLAMMATION EST procedure are i n the results section. TACROLIMUS LEVEL Routine 07/31/2017 8:07 PM Resul ts for this EST procedure are i n the results section. SEDIMENTATION RATE Routine 07/31/2017 8:07 PM Res ults for this EST procedure are i n the results section. PROTHROMBIN TIME Routine 07/31/2017 8:07 PM Resul ts for this EST procedure are i n the results section. IGG Routine 07/31/2017 8:07 PM Results f or this EST procedure are i n the results section. FILM LIBRARY STORAGE Routine 07/29/2017 12:05 Res ults for this ONLY CT SPINE AM EST procedure are in the results section. FILM LIBRARY STORAGE Routine 07/29/2017 12:00 Res ults for this ONLY CT CHEST ABDOMEN AM EST proced ure are in PELVIS the results section. FILM LIBRARY STORAGE Routine 07/27/2017 12:00 Res ults for this ONLY CT HEAD AM EST procedure are i n the results section. FILM LIBRARY STORAGE Routine 07/26/2017 12:00 Res ults for this ONLY DX CHEST AM EST procedure are in the results section. FILM LIBRARY STORAGE Routine 07/17/2017 12:00 Res ults for this ONLY MR HEAD AM EST procedure are i n the results section. FILM LIBRARY STORAGE Routine 06/30/2017 12:00 Res ults for this ONLY CT HEAD AM EDT procedure are i n the results section. documented in this encounter Results (ABNORMAL) Differential, Automated (08/03/2017 4:16 AM EST) P athologist Signature Neutrophils % 42.7 % [facility] Neutr Abs (ANC) 2.81 1.70 - [facility] 6.10 [facility] x10(3)/[facility] LABORATORY Lymphocytes % 38.2 % [facility] Lymphocytes Abs 2.5 0.9 - 3.2 [facility] x10(3)/[facility] LABORATORY Monocytes % 13.7 % [facility] Monocyte Abs 0.9 0.3 - 0.9 [facility] x10(3)/[facility] LABORATORY Eosinophils % 3.8 % [facility] Eosinophils Abs 0.2 0.0 - 0.4 [facility] x10(3)/[facility] LABORATORY Basophils % 0.8 % [facility] Basophils Abs 0.0 0.0 - 0.1 [facility] x10(3)/[facility] LABORATORY Immature Gran % 0.80 % [facility] Comment: Immature granulocytes(IG's)percentage an d absolute count will include metamyelocytes, myelocytes, and promyelo cytes. Blood smears from CBCs yielding IG's will be scanned manually for concor dance. If this scan disagrees with the automated IG or if promyelocytes are not ed, a manual differential will be performed. Kym Gran Abs 0.05 (H) 0.00 - 0.04 x10(3)/[facility] LABORATORY Specimen Anatomical Collection Method Collection Time Receive d Time (Source) Location / / Volume Laterality Blood specimen 08/03/2017 4:16 AM 017 4:36 (specimen) EST AM EST Resulting Agency Comment Spec In Lab Rama Mccrary MD HEMATOLOGY ORDERABLES Performing Organization Address City/State/ZIP Code Phon e Number [place] [phone] (ABNORMAL) Hemogram (08/03/2017 4:16 AM EST) Analysis Performed At Patho logist Time Signature WBC 6.6 4.0 - 9.5 [facility] x10(3)/[facility] LABORATORY RBC 4.38 (L) 4.58 - [facility] 5.54 [facility] x10(6)/[facility] LABORATORY Hemoglobin 12.6 (L) 13.7 - [facility] 16.5 gm/dL [facility] Hematocrit 37.6 (L) 40.5 - [facility] 48.5 % [facility] MCV 85.8 82.9 - [facility].1 fL [facility] MCH 28.8 27.5 - [facility] 32.1 pg [facility] MCHC 33.5 32.0 - [facility] 35.7 gm/dL [facility] Platelets 257 145 - 357 [facility] x10(3)/[facility] LABORATORY RDWSD 39.3 36.0 - [place] 45.0 [facility] LABORATORY RDWCV 12.7 11.4 - [place] 13.8 % [facility] MPV 10.1 7.6 - 12.9 [place] [facility] LABORATORY nRBC % Auto 0.0 % [facility] nRBC Abs Auto 0.000 0.000 - [place] 0.000 [facility] x10(3)/[facility] LABORATORY Specimen Anatomical Collection Method Collection Time Receive d Time (Source) Location / / Volume Laterality Blood specimen 08/03/2017 4:16 AM 017 4:36 (specimen) EST AM EST Resulting Agency Comment Spec In Lab Rama Mccrary MD HEMATOLOGY ORDERABLES Performing Organization Address City/[facility]/ZIP [facility] Phon e Number [address] Lipase (08/03/2017 4:16 AM EST) P athologist Signature Lipase 29 0 - 60 [facility] Specimen Anatomical Collection Method Collection Time Receive d Time (Source) Location / / Volume Laterality Blood specimen 08/03/2017 4:16 AM 017 4:36 (specimen) EST AM EST Resulting Agency Comment Spec In Lab Rama Mccrary MD CHEMISTRY ORDERABLES Performing Organization Address City/[facility] [place] [address] (ABNORMAL) Hepatic Function Panel (08/03/2017 4:16 AM EST) P athologist Signature Total Protein 6.8 6.1 - 8.0 [facility] [place] gm/dL [facility] Albumin 3.6 3.2 - 5.2 [facility] [place] gm/dL [facility] AST 47 (H) 0 - 39 [facility] [place] unit/L [facility] ALT 57 (H) 0 - 55 [facility] [place] unit/L [facility] Alk Phos 140 (H) 40 - 120 [facility]L [facility] Total 0.7 0.2 - 1.3 [facility] Bilirubin mg/dL [facility] Bili, Direct 0.1 0.0 - 0.3 [facility] mg/dL [facility] Specimen Anatomical Collection Method Collection Time Receive d Time (Source) Location / / Volume Laterality Blood specimen 08/03/2017 4:16 AM 017 4:36 (specimen) EST AM EST Resulting Agency Comment Spec In Lab Rama Mccrary MD CHEMISTRY ORDERABLES Performing Organization Address City/[facility]/ZIP Code Phon e Number [address] Magnesium (08/03/2017 4:16 AM EST) P athologist Signature Magnesium 0.85 0.69 - 1.07 [facility] mmol/L [facility] Specimen Anatomical Collection Method Collection Time Receive d Time (Source) Location / / Volume Laterality Blood specimen 08/03/2017 4:16 AM 017 4:36 (specimen) EST AM EST Resulting Agency Comment Spec In Lab Rama Mccrary MD CHEMISTRY ORDERABLES Performing Organization Address City/[facility]/[place] [address] (ABNORMAL) Basic Metabolic Panel (non-fasting) (08/03/2017 4:16 AM EST) athologist Signature Glucose Lvl 107 65 - 199 [facility] mg/dL [facility] Comment: Diabetes: >=200 mg/dL plus symp toms BUN 14 10 - 20 mg/dL [facility] Creatinine 1.04 0.80 - 1.50 mg/dL [facility] Sodium 136 135 - 145 mmol/L [facility] Potassium 4.2 3.5 - 5.0 mmol/L [facility] Comment: Please note: ??Patients with WBC >100,00 0 may have falsely elevated Potassium levels. ??For accurate Potassium quantif ication in these patients send serum separator tube (gold top) for subsequent determinations. ??Contact the Clinical Chemistry Laboratory if there are any qu estions. Chloride 98 98 - 107 mmol/L [facility] CO2 22 22 - 31 mmol/L [facility] Anion Gap 16 (H) 5 - 15 mmol/L [facility] Calcium 8.9 8.5 - 10.5 mg/dL [facility] Estimated GFR >60 >=60 [facility] Comment: The reported eGFR should be multiplied b y 1.2 for patients. The MDRD is not an appropriate measure o f renal function for patients with body mass extremes or in patients with acute kidney failure. [email or web address]/DHnkdep [email or web address] Specimen Anatomical Collection Method Collection Time Receive d Time (Source) Location / / Volume Laterality Blood specimen 08/03/2017 4:16 AM 017 4:36 (specimen) EST AM EST Resulting Agency Comment Spec In Lab Rama Mccrary MD CHEMISTRY ORDERABLES Performing Organization Address City/[facility] Phon e Number [address] POCT Glucose (08/02/2017 7:38 AM EST) athologist Signature POC Glucose 102 65 - 199 [facility] Comment: Supplemental ranges: <140 mg/dL before meals <180 mg/dL all other times of the day Specimen Anatomical Collection Method Collection Time Receive d Time (Source) Location / / Volume Laterality Blood specimen 08/02/2017 7:38 AM 017 7:38 (specimen) EST AM EST Pascual Khalil MD POINT OF CARE TEST ORDERABLE S Performing Organization Address City/[facility]/ZIP Code Phon e Number [address] POCT Glucose (08/02/2017 5:20 AM EST) athologist Signature POC Glucose 108 65 - 199 [facility] Comment: Supplemental ranges: <140 mg/dL before meals <180 mg/dL all other times of the day Specimen Anatomical Collection Method Collection Time Receive d Time (Source) Location / / Volume Laterality Blood specimen 08/02/2017 5:20 AM 017 5:20 (specimen) EST AM EST Pascual Khalil MD POINT OF CARE TEST ORDERABLE S Performing Organization Address City/State/ZIP Code Phon e Number [address] Scan, Peripheral Blood (08/02/2017 4:45 AM EST) Patholo gist Method Time Signature Plat Estimate Normal [facility]ORAT[facility] RBC Morphology Abnormal [facility] Ovalocytes 1-5 /HPF [facility]OR[facility] Specimen Anatomical Collection Method Collection Time Receive d Time (Source) Location / / Volume Laterality Blood specimen 08/02/2017 4:45 AM 017 5:02 (specimen) EST AM EST Resulting Agency Comment Spec In Lab Rama Mccrary MD HEMATOLOGY ORDERABLES Performing Organization Address City/State/ZIP Code Phon e Number [address] Differential, Automated (08/02/2017 4:45 AM EST) P athologist Signature Neutrophils % 47.6 % [facility]OR[facility] Neutr Abs (ANC) 2.52 1.70 - [facility] 6.10 [facility] x10(3)/[facility] LABORATORY Lymphocytes % 34.0 % [facility] Lymphocytes Abs 1.8 0.9 - 3.2 [facility] x10(3)/[facility] LABORATORY Monocytes % 12.9 % [facility] Monocyte Abs 0.7 0.3 - 0.9 [facility] x10(3)/[facility] LABORATORY Eosinophils % 4.3 % [facility] Eosinophils Abs 0.2 0.0 - 0.4 [facility] x10(3)/[facility] LABORATORY Basophils % 0.6 % [facility] Basophils Abs 0.0 0.0 - 0.1 [facility] x10(3)/[facility] LABORATORY Immature Gran % 0.60 % [facility] Comment: Immature granulocytes(IG's)percentage an d absolute count will include metamyelocytes, myelocytes, and promyelo cytes. Blood smears from CBCs yielding IG's will be scanned manually for concor dance. If this scan disagrees with the automated IG or if promyelocytes are not ed, a manual differential will be performed. Kym Gran Abs 0.03 0.00 - 0.04 x10(3)/[facility] Y [facility] LABORATORY Specimen Anatomical Collection Method Collection Time Receive d Time (Source) Location / / Volume Laterality Blood specimen 08/02/2017 4:45 AM 017 5:02 (specimen) EST AM EST Resulting Agency Comment Spec In Lab Rama Mccrary MD HEMATOLOGY ORDERABLES Performing Organization Address City/State/[place] [address] (ABNORMAL) Hemogram (08/02/2017 4:45 AM EST) Analysis Performed At Patho logist Time Signature WBC 5.3 4.0 - 9.5 [facility] x10(3)/[facility] LABORATORY RBC 4.12 (L) 4.58 - [facility] 5.54 [facility] x10(6)/[facility] LABORATORY Hemoglobin 12.2 (L) 13.7 - [facility] 16.5 gm/dL [facility] Hematocrit 35.0 (L) 40.5 - [facility] 48.5 % [facility] MCV 85.0 82.9 - [facility] 93.1 [facility] LABORATORY MCH 29.6 27.5 - [facility] 32.1 pg [facility] MCHC 34.9 32.0 - [facility] 35.7 gm/dL [facility] Platelets 228 145 - 357 [facility] x10(3)/[facility] LABORATORY RDWSD 39.8 36.0 - [facility] 45.0 [facility] LABORATORY RDWCV 13.0 11.4 - [facility] 13.8 % [facility] LABORATORY MPV 10.3 7.6 - 12.9 [facility] LABORATORY nRBC % Auto 0.0 % [facility]ORATORY nRBC Abs Auto 0.000 0.000 - [facility] 0.000 [facility] x10(3)/[facility] LABORATORY Specimen Anatomical Collection Method Collection Time Receive d Time (Source) Location / / Volume Laterality Blood specimen 08/02/2017 4:45 AM 017 5:02 (specimen) EST AM EST Resulting Agency Comment Spec In Lab Rama Mccrary MD HEMATOLOGY ORDERABLES Performing Organization Address City/[facility] Phon e Number [address] Lipase (08/02/2017 4:45 AM EST) athologist Signature Lipase 29 0 - 60 [facility] unit/L [facility] LABORATORY Specimen Anatomical Collection Method Collection Time Receive d Time (Source) Location / / Volume Laterality Blood specimen 08/02/2017 4:45 AM 017 5:02 (specimen) EST AM EST Resulting Agency Comment Spec In Lab Rama Mccrary MD CHEMISTRY ORDERABLES Performing Organization Address City/[facility] [place] [address] (ABNORMAL) Hepatic Function Panel (08/02/2017 4:45 AM EST) P athologist Signature Total Protein 6.7 6.1 - 8.0 [facility] gm/dL [facility] Albumin 3.6 3.2 - 5.2 [facility] gm/dL [facility] AST 44 (H) 0 - 39 [facility] unit/L [facility] ALT 57 (H) 0 - 55 [facility] unit/L [facility] Alk Phos 135 (H) 40 - 120 [facility] unit/L [facility] Total 0.6 0.2 - 1.3 [facility] Bilirubin mg/dL [facility] Bili, Direct 0.1 0.0 - 0.3 [facility] mg/dL [facility] Specimen Anatomical Collection Method Collection Time Receive d Time (Source) Location / / Volume Laterality Blood specimen 08/02/2017 4:45 AM 017 5:02 (specimen) EST AM EST Resulting Agency Comment Spec In Lab Rama Mccrary MD CHEMISTRY ORDERABLES Performing Organization Address City/State/[place] [address] [facility] [address] Magnesium (08/02/2017 4:45 AM EST) athologist Signature Magnesium 0.74 0.69 - 1.07 [facility] mmol/L [facility] LABORATORY Specimen Anatomical Collection Method Collection Time Receive d Time (Source) Location / / Volume Laterality Blood specimen 08/02/2017 4:45 AM 017 5:02 (specimen) EST AM EST Resulting Agency Comment Spec In Lab Rama Mccrary MD CHEMISTRY ORDERABLES Performing Organization Address City/State/ZIP Code Phon e Number [address] Basic Metabolic Panel (non-fasting) (08/02/2017 4:45 AM EST) athologist Signature Glucose Lvl 106 65 - 199 [facility] mg/dL [facility] Comment: Diabetes: >=200 mg/dL plus symp toms BUN 12 10 - 20 mg/dL [facility] LABORATORY Creatinine 0.92 0.80 - 1.50 mg/dL [facility] LABORATORY Sodium 135 135 - 145 mmol/L [facility] LABORATORY Potassium 4.2 3.5 - 5.0 mmol/L [facility] Comment: Please note: ??Patients with WBC >100,00 0 may have falsely elevated Potassium levels. ??For accurate Potassium quantif ication in these patients send serum separator tube (gold top) for subsequent determinations. ??Contact the Clinical Chemistry Laboratory if there are any qu estions. Chloride 98 98 - 107 mmol/L [facility] CO2 22 22 - 31 mmol/L [facility] Anion Gap 15 5 - 15 mmol/L [facility] Calcium 8.9 8.5 - 10.5 mg/dL [facility] Estimated GFR >60 >=60 [facility] Comment: The reported eGFR should be multiplied b y 1.2 for patients. The MDRD is not an appropriate measure o f renal function for patients with body mass extremes or in patients with acute kidney failure. [email or web address]/DHnkdep [email or web address]/DHMCnkf Specimen Anatomical Collection Method Collection Time Receive d Time (Source) Location / / Volume Laterality Blood specimen 08/02/2017 4:45 AM 017 5:02 (specimen) EST AM EST Resulting Agency Comment Spec In Lab Rama Mccrary MD CHEMISTRY ORDERABLES Performing Organization Address City/State/ZIP Code Phon e Number [address] POCT Glucose (08/01/2017 11:53 PM EST) athologist Signature POC Glucose 115 65 - 199 [facility] mg/dL [facility] Comment: Supplemental ranges: <140 mg/dL before meals <180 mg/dL all other times of the day Specimen Anatomical Collection Method Collection Time Receive d Time (Source) Location / / Volume Laterality Blood specimen 08/01/2017 11:53 7 (specimen) PM EST 11:53 PM EST Pascual Khalil MD POINT OF CARE TEST ORDERABLE S Performing Organization Address City/[facility]/[place] [address] POCT Glucose (08/01/2017 8:12 PM EST) athologist Signature POC Glucose 118 65 - 199 [facility] mg/dL [facility] Comment: Supplemental ranges: <140 mg/dL before meals <180 mg/dL all other times of the day Specimen Anatomical Collection Method Collection Time Receive d Time (Source) Location / / Volume Laterality Blood specimen 08/01/2017 8:12 PM 017 8:12 (specimen) EST PM EST Pascual Khalil MD POINT OF CARE TEST ORDERABLE S Performing Organization Address City/[facility]/ZIP Code Phon e Number [address] POCT Glucose (08/01/2017 4:09 PM EST) athologist Signature POC Glucose 120 65 - 199 [facility] mg/dL [facility] Comment: Supplemental ranges: <140 mg/dL before meals <180 mg/dL all other times of the day Specimen Anatomical Collection Method Collection Time Receive d Time (Source) Location / / Volume Laterality Blood specimen 08/01/2017 4:09 PM 017 4:09 (specimen) EST PM EST Pascual Khalil MD POINT OF CARE TEST ORDERABLE S Performing Organization Address City/State/ZIP Code Phon e Number [address] POCT Glucose (08/01/2017 11:32 AM EST) athologist Signature POC Glucose 100 65 - 199 [facility] Comment: Supplemental ranges: <140 mg/dL before meals <180 mg/dL all other times of the day Specimen Anatomical Collection Method Collection Time Receive d Time (Source) Location / / Volume Laterality Blood specimen 08/01/2017 11:32 7 (specimen) AM EST 11:32 AM EST Pascual Khalil MD POINT OF CARE TEST ORDERABLE S Performing Organization Address City/State/ZIP Code Phon e Number [address] POCT Glucose (08/01/2017 7:57 AM EST) athologist Signature POC Glucose 98 65 - 199 [facility]dL [facility] Comment: Supplemental ranges: <140 mg/dL before meals <180 mg/dL all other times of the day Specimen Anatomical Collection Method Collection Time Receive d Time (Source) Location / / Volume Laterality Blood specimen 08/01/2017 7:57 AM 017 7:57 (specimen) EST AM EST Rama Mccrary MD POINT OF CARE TEST ORDERABLE S Performing Organization Address City/State/ZIP Code Phon e Number [address] Differential, Automated (08/01/2017 4:20 AM EST) athologist Signature Neutrophils % 47.2 % [facility]ORATORY Neutr Abs (ANC) 2.05 1.70 - [facility] 6.10 [facility] x10(3)/[facility] LABORATORY Lymphocytes % 32.5 % [facility] LABORATORY Lymphocytes Abs 1.4 0.9 - 3.2 [facility] x10(3)/[facility] LABORATORY Monocytes % 13.6 % [facility] LABORATORY Monocyte Abs 0.6 0.3 - 0.9 [facility] x10(3)/[facility] LABORATORY Eosinophils % 5.3 % [facility] LABORATORY Eosinophils Abs 0.2 0.0 - 0.4 [facility] x10(3)/[facility] LABORATORY Basophils % 0.7 % [facility] LABORATORY Basophils Abs 0.0 0.0 - 0.1 [place] 378840(3)/[facility] LABORATORY Immature Gran % 0.70 % [facility]ORATORY Comment: Immature granulocytes(IG's)percentage an d absolute count will include metamyelocytes, myelocytes, and promyelo cytes. Blood smears from CBCs yielding IG's will be scanned manually for concor dance. If this scan disagrees with the automated IG or if promyelocytes are not ed, a manual differential will be performed. Kym Gran Abs 0.03 0.00 - 0.04 x10(3)/[facility] LABORATORY Specimen Anatomical Collection Method Collection Time Receive d Time (Source) Location / / Volume Laterality Blood specimen 08/01/2017 4:20 AM 017 4:51 (specimen) EST AM EST Resulting Agency Comment Spec In Lab Rama Mccrary MD HEMATOLOGY ORDERABLES Performing Organization Address City/State/[place] [address] (ABNORMAL) Hemogram (08/01/2017 4:20 AM EST) Analysis Performed At Patho logist Time Signature WBC 4.3 4.0 - 9.5 [facility] x10(3)/[facility] LABORATORY RBC 4.03 (L) 4.58 - [facility] 5.54 [facility] x10(6)/[facility] LABORATORY Hemoglobin 11.7 (L) 13.7 - [facility] 16.5 gm/dL [facility] LABORATORY Hematocrit 34.4 (L) 40.5 - [facility] 48.5 % [facility]ORATORY MCV 85.4 82.9 - [facility] 93.1 [facility] LABORATORY MCH 29.0 27.5 - [facility] 32.1 pg [facility]AT[facility] MCHC 34.0 32.0 - [facility] 35.7 gm/dL [facility] Platelets 189 145 - 357 [facility] x10(3)/[facility] LABORATORY RDWSD 38.9 36.0 - [facility] 45.0 [facility] LABORATORY RDWCV 12.6 11.4 - [facility] 13.8 % [facility]ORATORY MPV 10.4 7.6 - 12.9 [facility] LABORATORY nRBC % Auto 0.0 % [facility]ORATORY nRBC Abs Auto 0.000 0.000 - [facility] 0.000 [facility] x10(3)/[facility] LABORATORY Specimen Anatomical Collection Method Collection Time Receive d Time (Source) Location / / Volume Laterality Blood specimen 08/01/2017 4:20 AM 017 4:51 (specimen) EST AM EST Resulting Agency Comment Spec In Lab Rama Mccrary MD HEMATOLOGY ORDERABLES Performing Organization Address City/State/[place] [address] Lipase (08/01/2017 4:20 AM EST) P athologist Signature Lipase 29 0 - 60 [facility] unit/L [facility]ORY Specimen Anatomical Collection Method Collection Time Receive d Time (Source) Location / / Volume Laterality Blood specimen 08/01/2017 4:20 AM 017 4:51 (specimen) EST AM EST Resulting Agency Comment Spec In Lab Rama Mccrary MD CHEMISTRY ORDERABLES Performing Organization Address City/[facility] [place] [address] (ABNORMAL) Hepatic Function Panel (08/01/2017 4:20 AM EST) P athologist Signature Total Protein 6.3 6.1 - 8.0 [facility] Albumin 3.3 3.2 - 5.2 [facility] [place] gm/dL [facility] AST 42 (H) 0 - 39 [facility] ALT 52 0 - 55 [facility]L [facility] Alk Phos 131 (H) 40 - 120 [facility]/L [facility] Total 0.5 0.2 - 1.3 [facility] Bilirubin mg/dL [facility] Bili, Direct 0.1 0.0 - 0.3 [facility] mg/dL [facility] Specimen Anatomical Collection Method Collection Time Receive d Time (Source) Location / / Volume Laterality Blood specimen 08/01/2017 4:20 AM 017 4:51 (specimen) EST AM EST Resulting Agency Comment Spec In Lab Rama Mccrary MD CHEMISTRY ORDERABLES Performing Organization Address City/[facility]/ZIP Code Phon e Number [address] (ABNORMAL) Magnesium (08/01/2017 4:20 AM EST) P athologist Signature Magnesium 0.66 (L) 0.69 - 1.07 [facility] mmol/L [facility] Specimen Anatomical Collection Method Collection Time Receive d Time (Source) Location / / Volume Laterality Blood specimen 08/01/2017 4:20 AM 017 4:51 (specimen) EST AM EST Resulting Agency Comment Spec In Lab Rama Mccrary MD CHEMISTRY ORDERABLES Performing Organization Address City/[facility]/[place] [address] Basic Metabolic Panel (non-fasting) (08/01/2017 4:20 AM EST) P athologist Signature Glucose Lvl 105 65 - 199 [facility] mg/dL [facility] Comment: Diabetes: >=200 mg/dL plus symp toms BUN 10 10 - 20 mg/dL [facility] LABORATORY Creatinine 0.92 0.80 - 1.50 mg/dL [facility] LABORATORY Sodium 138 135 - 145 mmol/L [facility] Potassium 4.2 3.5 - 5.0 mmol/L [facility] Comment: Please note: ??Patients with WBC >100,00 0 may have falsely elevated Potassium levels. ??For accurate Potassium quantif ication in these patients send serum separator tube (gold top) for subsequent determinations. ??Contact the Clinical Chemistry Laboratory if there are any qu estions. Chloride 100 98 - 107 mmol/L [facility] CO2 26 22 - 31 mmol/L [facility] Anion Gap 12 5 - 15 mmol/L [facility] Calcium 8.7 8.5 - 10.5 mg/dL [facility] Estimated GFR >60 >=60 [facility] Comment: The reported eGFR should be multiplied b y 1.2 for patients. The MDRD is not an appropriate measure o f renal function for patients with body mass extremes or in patients with acute kidney failure. http://[email or web address]/DHnkdep [email or web address]/DHMCnkf Specimen Anatomical Collection Method Collection Time Receive d Time (Source) Location / / Volume Laterality Blood specimen 08/01/2017 4:20 AM 017 4:51 (specimen) EST AM EST Resulting Agency Comment Spec In Lab Rama Mccrary MD CHEMISTRY ORDERABLES Performing Organization Address City/State/[place] [address] Scan, Peripheral Blood (07/31/2017 9:47 PM EST) [facility] gist Method Time Signature Plat Estimate Normal [facility] RBC Morphology Abnormal [facility] Ovalocytes 1-5 /HPF [facility] Jeremy Cells 1-5 /HPF [facility] Giant Less than 1 /HPF [facility] LABORATORY Specimen Anatomical Collection Method Collection Time Receive d Time (Source) Location / / Volume Laterality Blood specimen 07/31/2017 9:47 PM 017 9:51 (specimen) EST PM EST Resulting Agency Comment Spec In Lab Rama Mccrary MD HEMATOLOGY ORDERABLES Performing Organization Address City/State/ZIP Code Phon e Number [place] [id number]OS[address] LAB[address] Drive Differential, Automated (07/31/2017 9:47 PM EST) P athologist Signature Neutrophils % 49.1 % [facility]ORY Neutr Abs (ANC) 2.83 1.70 - [facility] 6.10 [facility] x10(3)/[facility] LABORATORY Lymphocytes % 34.5 % [facility] Lymphocytes Abs 2.0 0.9 - 3.2 [facility] x10(3)/[facility] LABORATORY Monocytes % 12.5 % [facility] Monocyte Abs 0.7 0.3 - 0.9 [facility] x10(3)/[facility] LABORATORY Eosinophils % 3.1 % [facility] Eosinophils Abs 0.2 0.0 - 0.4 [facility] x10(3)/[facility] LABORATORY Basophils % 0.5 % [facility] Basophils Abs 0.0 0.0 - 0.1 [facility] x10(3)/[facility] LABORATORY Immature Gran % 0.30 % [facility] Comment: Immature granulocytes(IG's)percentage an d absolute count will include metamyelocytes, myelocytes, and promyelo cytes. Blood smears from CBCs yielding IG's will be scanned manually for concor dance. If this scan disagrees with the automated IG or if promyelocytes are not ed, a manual differential will be performed. Kym Gran Abs 0.02 0.00 - 0.04 x10(3)/[facility] LABORATORY Specimen Anatomical Collection Method Collection Time Receive d Time (Source) Location / / Volume Laterality Blood specimen 07/31/2017 9:47 PM 017 9:51 (specimen) EST PM EST Resulting Agency Comment Spec In Lab Rama Mccrary MD HEMATOLOGY ORDERABLES Performing Organization Address City/[facility]/[place] [address] (ABNORMAL) Hemogram (07/31/2017 9:47 PM EST) Analysis Performed At Patho logist Time Signature WBC 5.8 4.0 - 9.5 [facility] x10(3)/[facility] LABORATORY RBC 4.00 (L) 4.58 - [facility] 5.54 [facility] x10(6)/[facility] LABORATORY Hemoglobin 12.0 (L) 13.7 - [facility] gm/dL [facility] Hematocrit 34.2 (L) 40.5 - [facility] 48.5 % [facility] MCV 85.5 82.9 - [facility] 93.1 [facility] LABORATORY MCH 30.0 27.5 - [facility] 32.1 pg [facility]AT[facility] MCHC 35.1 32.0 - [facility] 35.7 gm/dL [facility] Platelets 210 145 - 357 [facility] x10(3)/[facility] LABORATORY RDWSD 39.3 36.0 - [facility] 45.0 [facility] LABORATORY RDWCV 12.6 11.4 - [facility] 13.8 % [facility] LABORATORY MPV 10.1 7.6 - 12.9 [facility] LABORATORY nRBC % Auto 0.0 % [facility] LABORATORY nRBC Abs Auto 0.000 0.000 - [facility] 0.000 [facility] x10(3)/[facility] LABORATORY Specimen Anatomical Collection Method Collection Time Receive d Time (Source) Location / / Volume Laterality Blood specimen 07/31/2017 9:47 PM 017 9:51 (specimen) EST PM EST Resulting Agency Comment Spec In Lab Rama Mccrary MD HEMATOLOGY ORDERABLES Performing Organization Address City/State/[place] [address] [id number] (07/31/2017 9:47 PM EST) [facility] athologist Signature CD19% 6 6 - 23 % [facility] CD19 ABS 118 99 - 473 [facility] /[facility] LABORATORY Comment: This assay is a dual platform determin ation. ??The PERCENTAGE of lymphocytes bearing the CD19 is determined using inocente w cytometry immunophenotyping. ??The ABSOULTE COUNT of [id number] is de termined by multiplying the percentages by the absolute lymphocyte count obtaine d from the concurrent CBC. The displayed reference range is derived by assaying the general reference population, regardless of gender, but ag ed between 16 and 70 years of age. ??For individuals less than 16, pediatric refe rence ranges are derived from the literature [Journal of Pediatrics 1997 M ar;130(3):388-393]. WBC 5.8 4.0 - 9.5 x10(3)/[facility] LABORATORY Lymphocytes % 34.5 % [facility] Lymphocytes Abs 2.0 0.9 - 3.2 x10(3)/[facility] LABORATORY Specimen Anatomical Collection Method Collection Time Receive d Time (Source) Location / / Volume Laterality Blood specimen 07/31/2017 9:47 PM 017 9:51 (specimen) EST PM EST Resulting Agency Comment Spec In Lab Rama Mccrary MD HEMATOLOGY ORDERABLES Performing Organization Address City/State/[place] [address] (ABNORMAL) CD4+8 (07/31/2017 9:47 PM EST) P athologist Signature CD3% 90 (H) 55 - 82 % [facility] CD3 ABS 1,796 731 - [facility] 2,438 /[facility] LABORATORY CD4% 32 (L) 35 - 61 % [facility] CD4 ABS 642 503 - [facility] 1,736 /[facility] LABORATORY CD8% 54 (H) 12 - 38 % [facility] CD8 ABS 1,085 (H) 162 - [facility] 1,026 /[facility] LABORATORY Comment: This assay is a dual platform determin ation. ??The PERCENTAGE of lymphocytes bearing the CD3, CD4 and CD8 antigens is determined using flow cytometry immunophenotyping. ??The ABSOULTE COUNT of CD3-, CD4- ??and CD8-lymphocytes is determined by multiplying the percentage s by the absolute lymphocyte count obtained from the concurrent CBC. The displayed reference ranges are deriv ed by assaying the general reference population, regardless of gender, but ag ed between 16 and 70 years of age. ??For individuals less than 16, pediatric refe rence ranges are derived from the literature [Journal of Pediatrics 1997 M ar;130(3):388-393]. CD4+8 Ratio 0.59 (L) 1.09 - 4.26 ratio [facility] WBC 5.8 4.0 - 9.5 x10(3)/[facility] LABORATORY Lymphocytes % 34.5 % [facility] Lymphocytes Abs 2.0 0.9 - 3.2 x10(3)/[facility] LABORATORY Specimen Anatomical Collection Method Collection Time Receive d Time (Source) Location / / Volume Laterality Blood specimen 07/31/2017 9:47 PM 017 9:51 (specimen) EST PM EST Resulting Agency Comment Spec In Lab Rama Mccrary MD HEMATOLOGY ORDERABLES Performing Organization Address City/[facility]/[place] [address] (ABNORMAL) Sedimentation rate (07/31/2017 9:47 PM EST) P athologist Signature Sed Rate 17 (H) 0 - 15 [facility] mm/hr [facility] Specimen Anatomical Collection Method Collection Time Receive d Time (Source) Location / / Volume Laterality Blood specimen 07/31/2017 9:47 PM 017 9:51 (specimen) EST PM EST Resulting Agency Comment Spec In Lab Rama Mccrary MD HEMATOLOGY ORDERABLES Performing Organization Address City/[facility]/ZIP [facility] [place] [address] XR Sinuses (Generic) (07/31/2017 9:18 PM EST) Anatomical Region Laterality Modality N/A Digital Radiography Specimen (Source) Anatomical Location Collection Method / Collectio n Time Received Time / Laterality Volume Impressions 07/31/2017 11:09 PM EST No radiographic findings to suggest mastoiditis. Narrative 07/31/2017 11:09 PM EST EXAMINATION: XR SINUSES (GENERIC) CLINICAL HISTORY: Pt with hx of pancreat ic transplant and recurrent otitis media now with fever of unknown origin please evaluate for mastoiditis TECHNIQUE: 3 views COMPARISON: Correlation made with head CT from 2016 FINDINGS: The mastoid air cells appear well opacif ied on radiograph with no fluid levels to suggest mastoiditis. Review of [facility] head CT also demonstrates well aerated mastoid air cells on er 2016. No air-fluid levels are identified within the visualized maxilla ry and ethmoid air cells. Frontal sinuses are not pneumatized. Procedure Note Aranza Lincoln MD - 07/31/2017 EXAMINATION: XR SINUSES (GENERIC) CLINICAL HISTORY: Pt with hx of pancreat ic transplant and recurrent otitis media now with fever of unknown origin please evaluate for mastoiditis TECHNIQUE: 3 views COMPARISON: Correlation made with head CT from 2016 FINDINGS: The mastoid air cells appear well opacif ied on radiograph with no fluid levels to suggest mastoiditis. Review of [facility] head CT also demonstrates well aerated mastoid air cells on er 2016. No air-fluid levels are identified within the visualized maxilla ry and ethmoid air cells. Frontal sinuses are not pneumatized. IMPRESSION No radiographic findings to suggest mast oiditis. Rama Mccrary MD IMG DX ORDERABLES Urinalysis with reflex Culture (07/31/2017 8:55 PM EST) [facility] Method Time Signature Glucose UA Negative Negative [facility] mg/dL [facility] Protein UA Negative Negative [facility] mg/dL [facility] Bilirubin UA Negative Negative [facility] mg/dL [facility] Comment: Clinical correlation required for positi ve Urine Bilirubin results as false positive may occur with some drugs and d rug related products. If a false positive is suspected a serum total bili sinha should be considered if clinically indicated. Urobilinogen UA Normal Normal mg/dL [facility] pH UA 6.0 5.0 - 8.0 [facility] Blood UA Negative Negative mg/dL [facility] Ketones UA Negative Negative mg/dL [facility] Nitrite UA Negative Negative [facility] Leukocytes UA Negative Negative [facility] LABORATORY Appearance UA Clear Clear [facility] Spec [place] UA 1.011 1.002 - 1.030 [facility] Color UA Yellow Yellow [facility] Culture Reflexed No [facility] Specimen (Source) Anatomical Collection Method Collection Time Re ceived Time Location / / Volume Laterality Urine specimen 07/31/2017 8:55 07/31/2017 9:11 obtained by clean PM EST PM EST catch procedure (specimen) Resulting Agency Comment Spec In Lab Rama Mccrary MD URINE ORDERABLES Performing Organization Address City/[facility] [place] [address] Blood culture (07/31/2017 8:15 PM EST) [employer] gist Method Time Signature Blood Culture No growth TIFFANI GREENE at 5 days. [facility] Specimen Anatomical Location Collection Method Collection Time Received Time (Source) / Laterality / Volume Blood specimen ANTECUBITAL REGION 07/31/2017 8:15 1208/2016 9:02 (specimen) STRUCTURE / Unknown PM EST PM EST Comment: SET 2 Resulting Agency Comment Spec In Lab Rama Mccrary MD MICROBIOLOGY - BLOOD ORDERAB LES Performing Organization Address City/[facility]/[place] [address] Blood culture (07/31/2017 8:08 PM EST) Patholo gist Method Time Signature Blood Culture No growth TIFFANI GREENE at 5 days. [facility] Specimen Anatomical Location Collection Method Collection Time Received Time (Source) / Laterality / Volume Blood specimen ANTECUBITAL REGION 07/31/2017 8:08 1208/2016 9:01 (specimen) STRUCTURE / Unknown PM EST PM EST Comment: SET 1 Resulting Agency Comment Spec In Lab Rama Mccrary MD MICROBIOLOGY - BLOOD ORDERAB LES Performing Organization Address City/[facility]/[place] [address] Sedimentation rate (07/31/2017 8:07 PM EST) P athologist Signature Sed Rate Clotted 0 - 15 [facility] Comment: Called by: ANDREW, Read back by: Gaurav [email or web address]/[email or web address], Date/Time:07/31/17 21:14. Corrected from 16 mm/hr [HI] on 07/31/17 09:15 by Lidia Salter Specimen Anatomical Collection Method Collection Time Receive d Time (Source) Location / / Volume Laterality Blood specimen 07/31/2017 8:07 PM 017 8:21 (specimen) EST PM EST Resulting Agency Comment Spec In Lab Rama Mccrary MD HEMATOLOGY ORDERABLES Performing Organization Address City/[facility]/[place] [address] (ABNORMAL) CRP, acute inflammation (07/31/2017 8:07 PM EST) P athologist Signature CRP 37.9 (H) <=4.9 mg/L [facility] Comment: result rechecked[facility] Specimen Anatomical Collection Method Collection Time Receive d Time (Source) Location / / Volume Laterality Blood specimen 07/31/2017 8:07 PM 017 8:21 (specimen) EST PM EST Resulting Agency Comment Spec In Lab Rama Mccrary MD CHEMISTRY ORDERABLES Performing Organization Address City/[facility]/[place] [address] IgG (07/31/2017 8:07 PM EST) P athologist Signature IgG 1,081 700 - 1,600 [facility] mg/dL [facility] Specimen Anatomical Collection Method Collection Time Receive d Time (Source) Location / / Volume Laterality Blood specimen 07/31/2017 8:07 PM 017 8:21 (specimen) EST PM EST Resulting Agency Comment Spec In Lab Rama Mccrary MD IMMUNOLOGY ORDERABLES Performing Organization Address City/[facility]/[place] [address] Tacrolimus level (07/31/2017 8:07 PM EST) athologist Signature Tacrolimus Lvl 5.8 ng/mL [facility] Comment: Trough therapeutic: ??5-15 ng/mL Performed by ultra-performance liquid ch romatography tandem mass spectrometry (UPLCMS/MS). This test was developed and its performa nce characteristics determined by [facility]. It has not been cleared or approved by the FDA. The laboratory is regulated under CLIA a s qualified to perform high-complexity testing. This test is used for clinical purposes. It should not be regarded as investigational or for research. Specimen Anatomical Collection Method Collection Time Receive d Time (Source) Location / / Volume Laterality Blood specimen 07/31/2017 8:07 PM 017 7:40 (specimen) EST AM EST Resulting Agency Comment Spec In Lab Rama Mccrary MD CHEMISTRY ORDERABLES Performing Organization Address City/[facility] [place] [address] Prothrombin Time (07/31/2017 8:07 PM EST) athologist Signature PT 13.6 11.8 - 14.0 [facility] LABORATORY INR 1.1 0.9 - 1.1 [facility] Comment: An INR <2.0 indicates adequate [...] Location / / Volume Laterality Blood specimen 07/31/2017 8:07 PM 017 8:21 (specimen) EST PM EST Resulting Agency Comment Spec In Lab Rama Mccrary MD HEMATOLOGY ORDERABLES Performing Organization Address City/[facility] [place] [address] Film Library- Storage Only CT Spine (07/29/2017 12:05 AM EST) Specimen (Source) Anatomical Location Collection Method / Collectio n Time Received Time / Laterality Volume Narrative RAD - 07/31/2017 6:24 PM EST This exam is for storage only and is aut o-finalizing. MD CHARLIE Kumar III FILM LIBRARY ORDERAB LES Performing Organization Address [facility] Phon e Number DH RAD DH RAD [place], [place] Film Library- Storage Only CT Chest Abdomen Pelvis (07/29/2017 12:00 AM EST) Specimen (Source) Anatomical Location Collection Method / Collectio n Time Received Time / Laterality Volume Narrative RAD - 07/31/2017 6:24 PM EST This exam is for storage only and is aut o-finalizing. MD CHARLIE Kumar III FILM LIBRARY ORDERAB LES Performing Organization Address [facility] Phon e Number DH RAD DH RAD [place], [place] Film Library- Storage Only CT Head (07/27/2017 12:00 AM EST) Specimen (Source) Anatomical Location Collection Method / Collectio n Time Received Time / Laterality Volume Narrative RAD - 07/31/2017 6:27 PM EST This exam is for storage only and is aut o-finalizing. MD CHARLIE Kumar III FILM LIBRARY ORDERAB LES Performing Organization Address [facility] Phon e Number DH RAD DH RAD [place] Film Library- Storage Only DX Chest (07/26/2017 12:00 AM EST) Specimen (Source) Anatomical Location Collection Method / Collectio n Time Received Time / Laterality Volume Narrative [facility] - 07/31/2017 6:26 PM EST This exam is for storage only and is aut o-finalizing. MD CHARLIE Kumar III FILM LIBRARY ORDERAB LES Performing Organization Address City/[facility] Phon e Number DH RAD DH RAD [place], [place] Film Library- Storage Only MR Head (07/17/2017 12:00 AM EST) Specimen (Source) Anatomical Location Collection Method / Collectio n Time Received Time / Laterality Volume Narrative RAD - 07/31/2017 6:26 PM EST This exam is for storage only and is aut o-finalizing. MD CHARLIE Kumar III FILM LIBRARY ORDERAB LES Performing Organization Address City/State/ZIP Code Phon e Number [place], [place] Film Library- Storage Only CT Head (06/30/2017 12:00 AM EDT) Specimen (Source) Anatomical Location Collection Method / Collectio n Time Received Time / Laterality Volume Narrative [facility] - 07/31/2017 6:25 PM EST This exam is for storage only and is aut o-finalizing. Bruce Moreno III, MD IMBrigitte FILM LIBRARY ORDERAB LES Performing Organization Address City/State/ZIP Code Phon e Number [place], [place] documented in this encounter Visit Diagnoses Diagnosis Fever Fever, unspecified documented in this encounter Admitting Diagnoses Diagnosis Fever Fever, unspecified documented in this encounter Administered Medications Inactive Administered Medications - up to 3 most recent administrations Medication Order MAR Action Action Date Dose Rate Site acetaminophen (TYLENOL) tablet 650 Given 08/02/2017 5:30 PM EST 650 mg mg 650 mg, Oral, EVERY 4 HOURS PRN, Starting on Thu07/31/17 at 1936, Until Thu08/03/17 at 1642, Pain, Fever. if oral temperature greater than 38.5 Centigrade, Maximum dose of acetaminophen is 4000 mg from all sources in 24 hours., Routine Given 08/01/2017 6:24 PM EST 650 mg Given 07/31/2017 9:52 PM EST 650 mg acyclovir (ZOVIRAX) 1,000 mg in New Bag 08/01/2017 6:29 AM EST 1,000 mg 270 mL/hr sodium chloride 0.9% 270 mL 1,000 mg, Intravenous, EVERY 8 HOURS, First dose on Thu07/31/17 at 2100, Until Discontinued, Administer over 60 Minutes, Indication for (Active or Suspected): [employer]/Meningitis New Bag 07/31/2017 10:58 PM EST 1,000 mg 270 mL/hr aspirin chewable tablet 81 mg Given 08/03/2017 8:16 AM EST 81 mg 81 mg, Oral, DAILY, First dose on Thu07/31/17 at 2000, Until Discontinued, Routine Given 08/02/2017 8:27 AM EST 81 mg Given 08/01/2017 8:38 AM EST 81 mg cefTRIAXone (ROCEPHIN) 2g in dextrose New Bag 07/31/2017 9:36 PM EST 2 g 100 mL/hr 5% 50mL 2 g, Intravenous, EVERY 24 HOURS, First dose on Thu07/31/17 at 2100, Until Discontinued, Administer over 30 Minutes, Indication for (Active or Suspected): [employer]/Meningitis doxycycline 100 mg vial attach to New Bag 08/01/2017 8:[address] 100 mg 100 mL/hr sodium chloride 0.9% 100 mL Mini-Bag Plus 100 mg, Intravenous, EVERY 12 HOURS, First dose on Thu07/31/17 at 2100, Until Discontinued, Administer over 60 Minutes, Warning Vesicant/Irritant Medication , Indication for (Active or Suspected): [employer]/Meningitis New Bag 07/31/2017 9:57 PM EST 100 mg 100 mL/hr enoxaparin (LOVENOX) injection 40 mg Given 08/01/2017 8:46 PM EST 40 mg 40 mg, Subcutaneous, NIGHTLY, First dose on Thu08/01/17 at 2100, Until Discontinued, Routine gabapentin (NEURONTIN) capsule 300 mg Given 08/03/2017 6:28 AM EST 300 mg 300 mg, Oral, EVERY MORNING, First dose on Thu08/01/17 at 0700, Until Discontinued, Routine Given 08/02/2017 6:43 AM EST 300 mg Given 08/01/2017 6:28 AM EST 300 mg gabapentin (NEURONTIN) capsule 900 mg Given 08/02/2017 9:17 PM EST 900 mg 900 mg, Oral, NIGHTLY, First dose on Thu07/31/17 at 2100, Until Discontinued, Routine Given 08/01/2017 8:45 PM EST 900 mg Given 07/31/2017 9:52 PM EST 900 mg guaiFENesin (ROBITUSSIN) 20 mg/mL liquid 10 mL 10 mL (200 mg), Oral, EVERY 4 HOURS PRN, Starting on Thu08/03/17 at 1138, Until Thu08/03/17 at 1642, Cough, Maximum daily dose is 2400 mg, Routine levothyroxine (SYNTHROID) tablet 150 mcg Given 08/03/2017 6:28 AM EST 150 mcg 150 mcg, Oral, EVERY MORNING, First dose on 08/01/17 at 0600, Until Discontinued, Routine Given 08/02/2017 6:44 AM EST 150 mcg Given 08/01/2017 5:43 AM EST 150 mcg lisinopril (PRINIVIL;ZESTRIL) tablet 20 mg Given 07/31/2017 9:55 PM EST 20 mg 20 mg, Oral, DAILY, First dose on Thu07/31/17 at 2100, Until Discontinued, Routine lisinopril (PRINIVIL;ZESTRIL) tablet 20 mg Given 08/03/2017 8:16 AM EST 20 mg 20 mg, Oral, DAILY, First dose (after last reorder) on 08/01/17 at 1000, Until Discontinued, Routine Given 08/02/2017 8:27 AM EST 20 mg Given 08/01/2017 9:59 AM EST 20 mg magnesium sulfate 2 g in sterile water New Bag 08/01/2017 9:53 AM EST 2 g 25 mL/hr 50 mL 2 g, Intravenous, ONCE, 1 dose, On 08/01/17 at 0945, Administer over 120 Minutes mycophenolate (CELLCEPT) capsule 500 mg Given 08/03/2017 6:28 AM EST 500 mg 500 mg, Oral, 2 TIMES DAILY, First dose on Thu07/31/17 at 2200, Until Discontinued, DO NOT CRUSH OR OPEN Administer to patient on empty stomach (1 hour before or two hours after a meal)., Routine Given 08/02/2017 7:47 PM EST 500 mg Given 08/02/2017 6:43 AM EST 500 mg ondansetron (ZOFRAN) injection 4 mg 4 mg, Intravenous, EVERY 8 HOURS PRN, St arting on Thu07/31/17 at 1936, Until Thu08/03/17 at 1642, Nausea, May repeat time s one in 30 minutes if ineffective. If multiple antiemetics are ordered, give ondansetron fir st. ondansetron (ZOFRAN) tablet 4 mg 4 mg, Oral, EVERY 8 HOURS PRN, Starting on Thu07/31/17 at 1936, Until Thu08/03/17 at 1642, Nausea, Vomiting, If multiple antiemetics are ordered, use ondansetron first. PO Preferred. If patient unable to take PO, may give IV if ordered. May repeat times one in 45 minutes if ineffe ctive. If unable to take PO, may give IV., Routine pantoprazole (PROTONIX) tablet 40 mg Given 08/03/2017 8:16 AM EST 40 mg 40 mg, Oral, 2 TIMES DAILY, First dose on Thu07/31/17 at 2100, Until Discontinued, DO NOT CRUSH OR OPEN, Routine Given 08/02/2017 9:17 PM EST 40 mg Given 08/02/2017 8:27 AM EST 40 mg senna-docusate (PERICOLACE) 8.6-50 mg per Given 2016 8:38 AM EST 2 tablets tablet 2 tablet 2 tablet, Oral, 2 TIMES DAILY, First dose on Thu07/31/17 at 2100, Until Discontinued, Routine Given 07/31/2017 9:52 PM EST 2 tablets sodium chloride 0.9 % flush 5 mL Given 08/03/2017 8:19 AM EST 5 mLs 5 mL, Intravenous, 2 TIMES DAILY, First dose on Thu07/31/17 at 2100, Until Discontinued, Routine Given 08/02/2017 9:18 PM EST 5 mLs Given 08/02/2017 8:28 AM EST 5 mLs tacrolimus (PROGRAF) capsule 2 mg Given 08/03/2017 8:17 AM EST 2 mg 2 mg, Oral, 2 TIMES DAILY, First dose on Thu07/31/17 at 2100, Until Discontinued, Routine Given 08/02/2017 9:17 PM EST 2 mg Given 08/02/2017 8:27 AM EST 2 mg traZODone (DESYREL) tablet 50 mg Given 08/02/2017 9:17 PM EST 50 mg 50 mg, Oral, NIGHTLY, First dose on Thu07/31/17 at 2100, Until Discontinued, Routine Given 08/01/2017 8:48 PM EST 50 mg Given 07/31/2017 9:51 PM EST 50 mg documented in this encounter Active and Recently Administered Medications Times are shown in EST. Scheduled Medication Order 08/01/2017 08/02/2017 08/03/2017 acyclovir (ZOVIRAX) 1,000 mg in sodium chloride 0.9% 2 70 mL (CANCELED) 0629 (New Bag - Provider: Gaurav Marrero RN)0729 (Stopped - Provider: Gaurav Marrero RN) 1,000 mg, Intravenous, EVERY 8 HOURS, Fi rst dose on Thu07/31/17 at 2100, Until Discontinued, Administer over 60 Minutes, Indication for (Active or Suspected): [employer]/Meningitis aspirin chewable tablet 81 mg 0838 (Given - Provider: Juan Carlos Chau RN) 0827 (Given - Provider: Juan Carlos R Strong, RN) 0816 (Given - Provider: Coby Rankin RN) 81 mg, Oral, DAILY, First dose on Thu at 2000, Until Discontinued, Routine doxycycline 100 mg vial attach to sodium chloride 0.9% 100 mL Mini-Bag Plus (CANCELED) 0837 (New Bag - Provider: Juan Carlos lanier RN)0937 (Stopped - Provider: Juan Carlos Chau RN) 100 mg, Intravenous, EVERY 12 HOURS, Fir st dose on Thu07/31/17 at 2100, Until Discontinued, Administer over 60 Minutes, Warning Vesicant/Irritant Medication , Indication for (Active or Suspected): [employer]/Meningitis enoxaparin (LOVENOX) injection 40 mg 2045 (Given - Pro vider: Ni Barraza RN) 2099 (Not Given - Provider: Polina greenberg RN - Reason: Patient/family refused - Comment: I'm walking a lot and I'm going home tomorrow educated on importance.) 40 mg, Subcutaneous, NIGHTLY, First dose on 08/01/17 at 2100, Until Discontinued, Routine gabapentin (NEURONTIN) capsule 300 mg 06 (Given - Pr ovider: Gaurav Marrero RN) 0643 (Given - Provider: Ni Barraza RN) 627 (Gi ankit - Provider: Polina Rich RN) 300 mg, Oral, EVERY MORNING, First dose on 08/01/17 at 0700, Until Discontinued, Routine gabapentin (NEURONTIN) capsule 900 mg 2044 (Given - Pr ovider: Ni Barraza RN) 2116 (Given - Provider: Polina Rich RN) 900 mg, Oral, NIGHTLY, First dose on Thu07/31/17 at 2100, Until Discontinued, Routine levothyroxine (SYNTHROID) tablet 150 mcg 0543 (Given - Provider: Gaurav Marrero RN) 0644 (Given - Provider: Ni Barraza RN) 0628 (Gi ankit - Provider: Polina Rich RN) 150 mcg, Oral, EVERY MORNING, First dose on 08/01/17 at 0600, Until Discontinued, Routine lisinopril (PRINIVIL;ZESTRIL) tablet 20 mg 0959 (Given - Provider: Juan Carlos Chau RN) 0827 (Given - Provider: Juan Carlos Chau RN) 0816 (Giv en - Provider: Coby Rankin, MIGUELITO) 20 mg, Oral, DAILY, First dose on Thu at 1000, Until Discontinued, Routine magnesium sulfate 2 g in sterile water 50 mL (COMPLETE D) 0953 (New Bag - Provider: Juan Carlos Chau RN)1153 (Stopped - Provider: Juan Carlos Chau RN) 2 g, Intravenous, ONCE, 1 dose, 08/01 at 0945, Administer over 120 Minutes mycophenolate (CELLCEPT) capsule 500 mg 0628 (Given - Provider: Gaurav Marrero RN)1824 (Given - Provider: Juan Carlos Chau RN) 0643 (Given - Provider: Ni Barraza, MIGUELITO)1947 (Given - Provider: Juan Carlos Chau RN) 0628 (Given - Provider: Polina Rich, MIGUELITO) 500 mg, Oral, 2 TIMES DAILY, First dose on Thu07/31/17 at 2200, Until Discontinued, DO NOT CRUSH OR OPEN Administer to patient on empty stomach (1 hour before or two hours after a meal)., Routine pantoprazole (PROTONIX) tablet 40 mg 0837 (Given - Pro vider: Juan Carlos Chau RN)2045 (Given - Provider: Ni Barraza RN) 08 (Given - Provider: Juan Carlos Chau RN)2116 (Given - Provider: Polina Rich RN) 0816 (Given - Provider: Coby Rankin RN) 40 mg, Oral, 2 TIMES DAILY, First dose o n Thu07/31/17 at 2100, Until Discontinued, DO NOT CRUSH OR OPEN, Routine senna-docusate (PERICOLACE) 8.6-50 mg per tablet 2 tab let 0838 (Given - Provider: Juan Carlos Chau RN)2046 (Not Given - Provider: Ni Barraza RN - Reason: Patient/family refused) 0900 (Not Given - Provider: Juan Carlos sahni RN - Reason: Order parameters not met - Comment: had 3 BM's yest)2099 (Not Given - Provider: Polina L Hilario, RN - Reason: Patient/family refused) 0900 (Not Given - Provider: Coby Rankin RN - Reason: Patient/family refused) 2 tablet, Oral, 2 TIMES DAILY, First dos e on Thu07/31/17 at 2100, Until Discontinued, Routine sodium chloride 0.9 % flush 5 mL 0838 (Given - Provide r: Juan Carlos Chau RN)2045 (Given - Provider: Ni Barraza RN) 08 (Given - Provider: Juan Carlos Chau RN)2117 (Given - Provider: Polina Rich RN) 08 (Given - Provider: Coby Rankin RN) 5 mL, Intravenous, 2 TIMES DAILY, First dose on Thu07/31/17 at 2100, Until Discontinued, Routine tacrolimus (PROGRAF) capsule 2 mg 0837 (Given - Provid er: Juan Carlos Chau RN)2044 (Given - Provider: Ni Barraza RN) 826 (Given - Provider: Juan Carlos Chau RN)2116 (Given - Provider: Polina Rich RN) 08 (Given - Provider: Coby Rankin RN) 2 mg, Oral, 2 TIMES DAILY, First dose on Thu07/31/17 at 2100, Until Discontinued, Routine traZODone (DESYREL) tablet 50 mg 2047 (Given - Provider: Trish Barraza RN) 2116 (Given - Provider: Polina Rich RN) 50 mg, Oral, NIGHTLY, First dose on Thu07/31/17 at 2100, Until Discontinued, Routine PRN Medication Order 08/01/2017 08/02/2017 08/03/2017 acetaminophen (TYLENOL) tablet 650 mg 1824 (Given - Pr ovider: Juan Carlos Chau RN) 1730 (Given - Provider: Juan Carlos Chau RN) 650 mg, Oral, EVERY 4 HOURS PRN, Startin g Thu07/31/17 at 1936, Until Thu08/03/17 at 1642, Pain, Fever. if oral temperature greater than 38.5 Centigrade, Maximum dose of acetaminophen is 4000 mg from all sources in 24 hours., Routine guaiFENesin (ROBITUSSIN) 20 mg/mL liquid 10 mL 10 mL (200 mg), Oral, EVERY 4 HOURS PRN, Starting Thu08/03/17 at 1138, Until Thu08/03/17 at 1642, Cough, Maximum daily dose is 2400 mg, Routine lidocaine (XYLOCAINE) 10 mg/mL (1 %) injection 3 mg 3 mg (0.3 mL), Subcutaneous, ONCE PRN, 1 dose, Starting Thu07/31/17 at 1936, Until Thu08/03/17 at 1642, for discomfort with PIV insertion, Routine ondansetron (ZOFRAN) injection 4 mg(Linked Group 1) 4 mg, Intravenous, EVERY 8 HOURS PRN, St arting Thu07/31/17 at 1936, Until Thu08/03/17 at 1642, Nausea, May repeat times one in 30 minutes if ineffective. If multiple antiemetics are ordered, give ondansetron first. ondansetron (ZOFRAN) tablet 4 mg(Linked Group 1) 4 mg, Oral, EVERY 8 HOURS PRN, Starting Thu07/31/17 at 1936, Until Thu08/03/17 at 1642, Nausea, Vomiting, If multiple antiemetics are ordered, use ondansetron first. PO Preferred. If patient unable to take PO, may give IV if ordered. May repeat times one in 45 minutes if ineffective. If unable to take PO, may give IV., Routine sodium chloride 0.9 % flush 5-20 mL 5-20 mL, Intravenous, EVERY 1 MIN PRN, S tarting Thu07/31/17 at 1936, Until Thu08/03/17 at 1642, flush, Flush pertains to all indwelling lines. Flush per protocol found in the job aid using the link provided on this medication record., Routine Linked Groups Order Group 1: ondansetron (ZOFRAN) tablet 4 mgJump to med 4 mg, Oral, EVERY 8 HOURS PRN, Starting Thu07/31/17 at 1936, Until Thu08/03/17 at 1642, Nausea, Vomiting
If multiple antiemetics are ordered, use ondansetron first. PO Preferred. If patient unable to take PO, may give I V if ordered. May repeat times one in 45 minutes if ineffective. If unable to take PO, may give IV.
Routine Or ondansetron (ZOFRAN) injection 4 mgJump to med 4 mg, Intravenous, EVERY 8 HOURS PRN, St arting 07/31/17 at 1936, Until 08/03/17 at 1642, Nausea
May repeat times one in 30 minutes if ineffective. If multiple antiemetics are ordered, give ondansetron first.
documented in this encounter Care Teams [employer] Relationship Specialty Start Date End Date Anna Mullen MD PCP - General 12/03/10 [address] [place] [address] documented as of this encounter
--- OUTSIDE RECORDS SUMMARY | 2022-03-13 18:27 | XMS_ITS | Encounter Summary ---
:1965 Author Organization [place] [address] Care Team Providers Name Role Phone Anna Mullen MD Primary Care Provider Reason for Visit Reason Comments Pancreas Transplant Follow-up Immunotherapy Encounter Details Date Type Department Care Team Description 08/02/2018 Office Visit Solid Organ Talia, Immunosuppressi on; Transplant at [facility] Eriberto Stoddard MD 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; [facility] Aftercare following organ transplant; [facility] DR Prophylactic immunotherapy [place], [place] TRANSPLANT [id number] SURGERY [phone] [place], [place] [address] Social History Tobacco Use Types [...] Sign Reading Time Taken Comments Blood Pressure 130/76 08/02/2018 11:12 AM EST Pulse 76 08/02/2018 11:12 AM EST Temperature 36.6 ??C (97.9 ??F) 08/02/2018 11:12 AM EST Respiratory Rate - - Oxygen Saturation 100% 08/02/2018 11:12 AM EST Inhaled Oxygen Concentration - - Weight 96.2 kg (212 lb) 08/02/2018 11:12 AM EST Height - - Body Mass Index 28.75 03/11/2018 8:30 AM EDT documented in this encounter Progress Notes Nicky Jaramillo CMA - 08/02/2018 10:40 AM EST Confirmed patient's last name and Reviewed tobacco use, all allergies and meds, dose and frequency. No changes, missed one dose this year. No additional OTC meds, nutritional or herbal supplements. Reviewed education tab. Reviewed immunizations, flu shot done 06/02/18 at [facility] (work) Gave patient standing orders. C/o old scare tissue hurts with cramping with scoliosis. Now uses inhaler (inknown name) due to QUIÑONES, SOB; 107/96, drinks 3-5 lt daily. Eriberto Melgar MD - 08/02/2018 10:40 AM EST Transplant Medicine Follow Up ?? Reese Hsu [id number] 1965 ?? Transplant ID: Date: 08/02/2018 Patient: Reese Hsu ?? Transplant Date: 08/28/2013 Organ(s) Pancreas ?? [place] organ diagnosis: ? Diabetes Mellitus - Type I (Pancreas) Days from Transplant: ?? 5 years ? History of Present Illness: Mr. Reese Hsu is a 52 y.o. years old male who is s/p Pancreas transplant on 08/28/2013 (Pancreas). His post-op course was uneventful He is here for a regular follow up viisIt ?? Interim Hx: He denied any recent hospitalizations after coxsackie viral infection in jul- .Denied any residual cough or chest pain during this visit. Been compliant with his immunosuppressive medications and fluid intake. Has chronic problems with his gastroparesis but voiced no new complaints.He reports increased muscle weakness with atrophy in hisright hand which initially started as knuckle pain in middle finger .Currently he is experiencing more difficulty in doing fine motor activities.His sugars are well controlled and compliant with his HCM testing. His newest issues are: 1)two pre malignant skin lesions on his scalp which are being removed in Dermatology 2)hyponatremia due to poor salt intake 3)hypocalcemia and hypophosphatemia due to poor Vit D status I asked that he salt his food and start Vit D3 ?? Healthcare maintenance for a transplant recipient: ?? Immunizations (no live virus or modified bacterial vaccines) [x] Prevnar 13 once in a lifetime [x] Pneumovax 23 every 5 years [x] Tdap every 10 years [x] Annual flu shot [x] Annual PCP exam: [x] Annual YULISSA and PSA for males over 40 [] Annual pap gyne for females (pap if cervix present; visual inspection if no cervix present) [] Annual mammogram for females over 40, younger than 40 if family hx positive [x] Every 5 year colonoscopy after age 50:Due in mar 2018 [x] Monthly self skin exam, daily spf 50 sunblock, annual derm consult if hx of skin cancer: Need dermatology follow up ,noticing breaks on upper lip on and off. [x] Annual eye exam: uses reading glasses ,no issues so far,last seen in october 2017 [x] Semi annual dental evaluation with prophylactic antibiotics:february 2018 [x] Cardiac stress test after age 50, every 3 years for diabetics, every 5 for non diabetics [] [place] kidney ultrasound looking for renal cell CA, every 5 years post transplant [] Bone density assessment every 9-12 years post transplant [x] Annual fasting lipid profile [x] Annual PTH-Vit D3 assessment until normalized [x] Annual 24 hour timed urine for creatinine, protein, calcium, phosphate, magnesium ?? ROS: Review of Systems - ?? Denies fevers, chills, nausea, vomiting, diarrhea, abd pain, chest pain, sob, graft tenderness,. Allother review of systems were neither positive or negative. ?? Routine Health Maintenance: Health Maintenance Topic Date Due ??? DM Urine Microalbumin yearly 09/14/2013 ??? DM Opthalmology Exam 03/28/2014 ??? Colonoscopy 10/24/2017 ??? DM Hemoglobin A1c 6 month 03/15/2018 ??? Influenza (Flu) vaccine (1 of 1 - Influenza Standard Series) 05/01/2018 ??? DM Creatinine yearly 09/15/2018 ??? Tetanus vaccine 03/05/2021 ??? Lipid Screening 09/15/2022 ??? Pneumo Increased Risk Completed ??? Tdap adult Completed ??? HIV screen Completed ? Problem List: Patient Active Problem List Diagnosis Code ??? [...] Fever R50.9 ??? Coxsackie virus infection B34.1 ? Medications: Current Outpatient Medications: ??? traZODone (DESYREL) 50 mg Tablet, TAKE ONE TABLET BY MOUTH EVERY EVENING, Disp: 90 tablet, Rfl: 3 ??? PROGRAF 1 mg Capsule, Take 2 mg twice daily. Pancreas transplant 08/28/2013. ICD code Z94.83, Disp: 120 capsule, Rfl: 11 ??? CELLCEPT 250 mg Capsule, TAKE TWO CAPSULES BY MOUTH TWICE A DAY, Disp: 360 capsule, Rfl: 3 ??? guaiFENesin (ROBITUSSIN) 20 mg/mL Liquid, Take 10 mLs by mouth every 4 hours as needed for Cough., Disp: 120 mL, Rfl: 0 ??? lisinopril (PRINIVIL;ZESTRIL) 20 mg Tablet, Take 1.5 tablets by mouth daily., Disp: 90 tablet, Rfl: 3 ??? gabapentin (NEURONTIN) 300 mg Capsule, Take 900 mg by mouth nightly. 100 mg in the morning and 900 mg at night., Disp: , Rfl: ??? levothyroxine (SYNTHROID) 150 mcg Tablet, Take [...] 38.5 Centigrade)., Disp: 30 tablet, Rfl: ??? cholecalciferol, Vitamin D3, 2,000 unit Capsule, Take 1 capsule by mouth daily., Disp: 90 capsule, Rfl: 3 ??? sildenafil (VIAGRA) 100 mg tablet, Take 1 tablet by mouth as needed for Erectile Dysfunction. supply Dx code :250.60 (Patient not taking: Reported on 08/02/2018), Disp: 60 tablet, Rfl: 6 ?? Allergies / ADRs: Allergies Allergen Reactions ??? Nexium [Esomeprazole Magnesium] Diarrhea ? Any acid reflux medication causes severe diarrhea ??? Prilosec [Omeprazole Magnesium] Diarrhea ??? Reglan [Metoclopramide Hcl] ? TD ??? Simvastatin ? Immunizations: Immunization History Administered Date(s) Administered ??? Influenza PF, Split 05/31/2014, 05/19/2016 ??? Influenza Vaccine w/Preservative, Split 05/22/2012 ??? Influenza Vaccine, Whole 06/11/2009 ??? Pneumococcal Conjugate (13 Valent) 02/22/2016 ??? Pneumococcal Polyvalent 23 08/31/2003, 05/09/2009, 06/14/2014 ??? Tdap Vaccine 03/05/2011 Past Medical History: Past??Medical??History Past Medical History: Diagnosis Date ??? ASCVD (arteriosclerotic cardiovascular disease) ? Breathing problem recently ?? sleep apnea being seen for it ??? Chronic pain 11 years old ?? joints, back recently right leg ??? Circulatory disease recently ?? right leg nubming, tingling, sore veins getting black ??? Depression ? Diabetes 17 years old ?? on pump and waiting list pancreas transplant ??? Digestive problems 22 years old ?? gastopresis ??? Gastroparesis ? Genital disease, male 5 years ago ?? ED ??? Headache(784.0) since 12 years old ?? migraaines ??? Heart disorder last three years ?? angina, heart murmur ??? Hormone disorder awhile ago ?? thryoid low i think ??? HTN (hypertension) ? Hypertensive disease 17 years old ?? high blood pressure ??? Hypothyroid ? IDDM (insulin dependent diabetes mellitus) ? Musculoskeletal disease 11 years old ?? curve and twisted spine, tardive dysc..(Severe twichinglimbs ??? Nervous system disorder 1977 ?? stroke age [age] ??? Other ill-defined conditions(799.89) 3 years ago ?? Tardive dyskinesia ??? 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 Severe headache ? Past Surgical History: Past??Surgical??History Past Surgical History: Procedure Laterality Date ??? APPENDECTOMY ? BRAIN SURGERY ?? 1977 ?? stroke paralyze left side neck down ??? CARPAL TUNNEL RELEASE ? CREATED BY INTERFACE ? EGD-BIOPSY Procedure Date: 07/18/2009 ??? CREATED BY INTERFACE ? Entered not Verified Procedure Date: 10/24/2010 ??? PRO COLONOSCOPY, DIAGNOSTIC N/A 10/24/2014 ?? COLONOSCOPY, DIAGNOSTIC performed by Anna Rapp MD at [facility] ENDOSCOPY ??? PRO TRANSPLANT ALLOGRAFT PANCREAS ?? 08/28/2013 ?? @PANCREATIC TRANSPLANT performed by Iraj Keller MD at [facility] MAIN OR ??? PRO TRANSPLANT, PREP DONOR PANCREAS ?? 08/28/2013 ?? @PREPARATION CADAVERIC PANCREAS, STANDARD performed by Iraj Keller MD at [facility] MAIN OR ??? PRO UNLISTED PROCEDURE, MUSCULOSKELETAL SYSTEM, GENERAL ?? 10 years ?? carpel tunnel ??? PRO UPPER GI ENDOSCOPY, BIOPSY ?? 12/31/2011 ?? UPPER GASTROINTESTINAL ENDOSCOPY,WITH BIOPSY SINGLE OR MULTIPLE performed by CLAYTON BHAKTA at [facility] ENDOSCOPY ??? PRO UPPER GI ENDOSCOPY, BIOPSY N/A 08/15/2015 ?? EGD WITH BIOPSY performed by Clayton Bhakta MD at [facility] ENDOSCOPY ??? SHOULDER SURGERY ? UPPER GI ENDOSCOPY, EXAM ?? 12/31/2011 ?? UPPER GI ENDOSCOPY performed by CLAYTON BHAKTA at [facility] ENDOSCOPY ? Social History: Social History ?? Social History ??? Marital status: ? Spouse name: N/A ??? Number of children: N/A ??? Years of education: N/A ?? 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 Social History Main Topics ??? Smoking status: Never Smoker ??? Smokeless tobacco: Never Used ??? Alcohol use No ? Comment: history of abuse, stopped 1996 ??? Drug use: No ??? Sexual activity: Yes ? Comment: deferred ?? Other Topics Concern ??? Exercise: Patient Reported Yes ? yard work, push ups situps ??? Abuse Or Threat: Physical, Sexual, Verbal No ?? 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 PHYSICAL EXAM: Vitals Office Visit from 08/02/2018 in Solid Organ Transplant at [place] Weight 96.2 kg (212 lb) Temp 36.6 ??C (97.9 ??F) Temp src Oral Heart Rate 76 BP 130/76 Patient Position Sitting SpO2 100 % Gen - AAO x 3 in [...] for REESE HSU ( ) as of 08/10/2018 06:16 Ref. Range 08/02/2018 09:51 08/02/2018 09:57 08/02/2018 09:57 WBC Latest Ref Range: 4.0 - 9.5 x10(3)/mcL 7.5 RBC Latest Ref Range: 4.58 - 5.54 x10(6)/mcL 4.20 (L) Hemoglobin Latest Ref Range: 13.7 - 16.5 gm/dL 13.2 (L) Hematocrit Latest Ref Range: 40.5 - 48.5 % 38.4 (L) MCV Latest Ref Range: 82.9 - 93.1 fL 91.4 MCH Latest Ref Range: 27.5 - 32.1 pg 31.4 MCHC Latest Ref Range: 32.0 - 35.7 gm/dL 34.4 RDWSD Latest Ref Range: 36.0 - 45.0 fL 42.0 RDWCV Latest Ref Range: 11.4 - 13.8 % 12.8 Platelets Latest Ref Range: 145 - 357 x10(3)/mcL 217 MPV Latest Ref Range: 7.6 - 12.[address] % Latest Ref Range: 0.7 - 2.6 % 1.[address] Abs Latest Ref Range: 0.030 - 0.120 x10(6)/mcL 0.050 Immature Retic% Latest Ref Range: 0.0 - 15.6 % 6.8 Reticulated Hgb Latest Ref Range: 31.3 - 40.2 pg 37.0 nRBC % Auto Latest Units: % 0.0 nRBC Abs Auto Latest Ref Range: 0.000 - 0.000 x10(3)/mcL 0.000 Neutr Abs (ANC) Latest Ref Range: 1.70 - 6.10 x10(3)/mcL 2.71 Neutrophils % Latest Units: % 36.2 Immature Gran % Latest Units: % 0.50 Lymphocytes % Latest Units: % 51.9 Monocytes % Latest Units: % 7.7 Eosinophils % Latest Units: % 2.9 Basophils % Latest Units: % 0.8 Kym Gran Abs Latest Ref Range: 0.00 - 0.04 x10(3)/mcL 0.04 Lymphocytes Abs Latest Ref Range: 0.9 - 3.2 x10(3)/mcL 3.9 (H) Monocyte Abs Latest Ref Range: 0.3 - 0.9 x10(3)/mcL 0.6 Eosinophils Abs Latest Ref Range: 0.0 - 0.4 x10(3)/mcL 0.2 Basophils Abs Latest Ref Range: 0.0 - 0.1 x10(3)/mcL 0.1 Sodium Latest Ref Range: 135 - 145 mmol/L 128 (L) Potassium Latest Ref Range: 3.5 - 5.0 mmol/L 4.9 Chloride Latest Ref Range: 98 - 107 mmol/L 92 (L) CO2 Latest Ref Range: 22 - 31 mmol/L 23 Anion Gap Latest Ref Range: 5 - 15 mmol/L 13 BUN Latest Ref Range: 10 - 20 mg/dL 23 (H) Creatinine Latest Ref Range: 0.80 - 1.50 mg/dL 1.30 eGFR Latest Ref Range: >=60 mL/min/1.73 m?? 64 eGFR Latest Ref Range: >=60 mL/min/1.73 m?? 74 Glucose Lvl Latest Ref Range: 65 - 199 mg/dL 107 Calcium Latest Ref Range: 8.5 - 10.5 mg/dL 8.9 Magnesium Latest Ref Range: 0.69 - 1.07 mmol/L 0.80 Hemoglobin A1C Latest Ref Range: 4.3 - 5.6 % 5.3 Est Avg Gluc Latest Units: mg/dL 105 Phosphorus Latest Ref Range: 2.5 - 4.5 mg/dL 3.2 Uric Acid Latest Ref Range: 3.5 - 8.5 mg/dL 7.3 Total Protein Latest Ref Range: 6.1 - 8.0 gm/dL 7.4 Albumin Latest Ref Range: 3.2 - 5.2 gm/dL 4.1 Total Bilirubin Latest Ref Range: 0.2 - 1.3 mg/dL 1.0 Alk Phos Latest Ref Range: 40 - 120 unit/L 97 AST Latest Ref Range: 0 - 39 unit/L 21 ALT Latest Ref Range: 0 - 55 unit/L 20 Amylase Latest Ref Range: 28 - 100 unit/L 49 Lipase Latest Ref Range: 0 - 60 unit/L 19 25-OH Vit D Total Latest Ref Range: 30 - 100 ng/mL 21 (L) Vit D 1,25 Latest Ref Range: 18 - 64 pg/mL 45 U Protein Ran Latest Ref Range: 0 - 12 mg/dL <6 Chol, Total Latest Units: mg/dL 142 HDL Latest Units: mg/dL 39 Chol/HDL Ratio Latest Units: ratio 3.6 Triglycerides Latest Units: mg/dL 115 LDL Cholesterol Latest Units: mg/dL 80 Lipid Interpretation Unknown See Note Tacrolimus Lvl Latest Units: ng/mL 9.9 PTH Latest Ref Range: 15 - 65 pg/mL 79 (H) Color UA Latest Ref Range: Yellow Straw Appearance UA Latest Ref Range: Clear Clear Spec [place] UA Latest Ref Range: 1.002 - 1.030 [...] ratio <0.1 Ca/Cre Ratio Latest Units: ratio 0.03 U Calcium Latest Units: mg/dL 1.5 U Creatinine Latest Units: mg/dL 52 52 U Mg Ran Latest Units: mmol/L 0.89 U Phosphorus Latest Units: mg/dL 30.6 Impression/ Plan: Reese Hsu is s/p Pancreas transplant. He was transplanted on 08/28/2013 (Pancreas). Mr. Reese Hsu is maintaining good graft function. He remains hydrated. . I also informed Mr. Reese Hsu to keep up with all recommended health maintenance visits, routine lab testing and screenings.He c/o muscle atrophy with pain in his right hand during this visit.Denied any new medications or hospitalizations. ?? Transplant Status : His blood sugars are well controlled with fasting levels wnl.Have chronic gastroparesis symptoms which are stable and with no escalation of symptoms.His amylase and lipase are stable indicating good graft function. ? Immunosuppression Currently on Prograft -2 mg/2mg and Cellcept -500 mg BID .Prograft levels are in therapeutic range. ?? PO4/Mg Calcium,magnesium and phos levels are low suggests Vit D3 deficiency Start Vit D3 replacement..Continue with magnesium gluconate supplementation. ? Hypertension Well controlled on lisinopril 30mg ?? Hyponatremia Salt his food ?? Infectious prophylaxis: Have cold sore on his upper lip previously -prescribed valtrex 500 Tid and recommended to take 7 days after lesion heals.Recommended to follow up with us if it does not heal. He may require valtrex prophylaxis. His recent Coxsackie viral infection is treated completely . ? HCM: Was due for colonoscopy in Mar; it has not been performed ? 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 ? Procrit Needed: Not indicated. ?? All age appropriate and post-transplant, routine health maintenance tests and screenings are strongly recommended. These include the above (noting that the time intervals are different than that of thenon-transplant community,) but are not limited to, the for mentioned. ?? Discussion with the patient and/or family concerned the following: ? Diagnostic results or recommended studies ? Prognosis; ? Risks and benefits of management; ? Instructions for management; ? Compliance with treatment; ? Risk factor reduction; ? Patient and family education. Total time: 25 of 30 minutes in direct face to face student services counselor. ? Follow-up: [] 1 month [x] 6 months [] 1 year [] Other: ?? Labs quarterly. documented in this encounter Plan of Treatment Not on filedocumented as of this encounter Results Protein/Creatinine Ratio, urine (08/02/2018 9:57 AM EST) P athologist Signature U Creatinine 52 mg/dL [facility] U Protein Ran <6 0 - 12 [facility] mg/dL [facility] Prot/Cre Ratio <0.1 ratio [facility] Specimen Anatomical Collection Method Collection Time Receive d Time (Source) Location / / Volume Laterality Urine specimen 08/02/2018 9:57 AM 018 (specimen) EST 10:08 AM EST Resulting Agency Comment Spec In Lab Eriberto Melgar MD URINE ORDERABLES Performing Organization Address City/State/[place] [address] Urinalysis with reflex Culture (08/02/2018 9:57 AM EST) Patholo gist Method Time Signature Glucose UA Negative Negative [facility] mg/dL [facility] Protein UA Negative Negative [facility] mg/dL [facility] Bilirubin UA Negative Negative [facility] mg/dL [facility] Comment: Clinical correlation required for positi ve Urine Bilirubin results as false positive may occur with some drugs and d rug related products. If a false positive is suspected a serum total bili sinha should be considered if clinically indicated. Urobilinogen UA Normal Normal mg/dL [facility] pH UA 6.0 5.0 - 8.0 [facility] Blood UA Negative Negative mg/dL [facility] Ketones UA Negative Negative mg/dL [facility] Nitrite UA Negative Negative [facility] Leukocytes UA Negative Negative [facility] Appearance UA Clear Clear [facility] Spec [place] UA 1.008 1.002 - 1.030 [facility] Color UA Straw Yellow [facility] Culture Reflexed No [facility] Specimen (Source) Anatomical Collection Method Collection Time Re ceived Time Location / / Volume Laterality Urine specimen 08/02/2018 9:57 08/02/2018 obtained by clean AM EST 10:[address] catch procedure (specimen) Resulting Agency Comment Spec In Lab Eriberto Melgar MD URINE ORDERABLES Performing Organization Address City/[facility]/ZIP Code Phon e Number [address] Phosphorus, urine, random (08/02/2018 9:57 AM EST) P athologist Signature U Phosphorus 30.6 mg/dL [facility] Specimen Anatomical Collection Method Collection Time Receive d Time (Source) Location / / Volume Laterality Urine specimen 08/02/2018 9:57 AM 018 (specimen) EST 10:08 AM EST Resulting Agency Comment Spec In Lab Eriberto Melgar MD URINE ORDERABLES Performing Organization Address City/[facility]/ZIP Code Phon e Number [address] Magnesium, urine, random (08/02/2018 9:57 AM EST) P athologist Signature U Mg Ran 0.89 mmol/L [facility] Specimen Anatomical Collection Method Collection Time Receive d Time (Source) Location / / Volume Laterality Urine specimen 08/02/2018 9:57 AM 018 (specimen) EST 10:08 AM EST Resulting Agency Comment Spec In Lab Eriberto Melgar MD URINE ORDERABLES Performing Organization Address City/[facility]/ZIP Code Phon e Number [address] Calcium Creatinine Ratio, random urine (08/02/2018 9:57 AM EST) P athologist Signature U Calcium 1.5 mg/dL [facility] U Creatinine 52 mg/dL [facility] Ca/Cre Ratio 0.03 ratio [facility] Specimen Anatomical Collection Method Collection Time Receive d Time (Source) Location / / Volume Laterality Urine specimen 08/02/2018 9:57 AM 018 (specimen) EST 10:08 AM EST Resulting Agency Comment Spec In Lab Eriberto Melgar MD URINE ORDERABLES Performing Organization Address City/State/ZIP Code Phon e Number [facility] [place] [address] Lipid Panel (08/02/2018 9:51 AM EST) athologist Signature Chol, Total 142 mg/dL [facility] Comment: Lower Risk: <200 mg/dL Average Risk: 200-239 mg/dL Higher Risk: >dv=694 mg/dL Triglycerides 115 mg/dL [facility] Comment: Average Risk/Lower Risk: <150 mg/dL Borderline High Risk: 150-199 mg/dL High Risk: 200-499 mg/dL Very High Risk: >mx=297 mg/dL HDL 39 mg/dL [facility] Comment: Males: ?? Higher Risk: <40 mg/dL Females: ?? HIgher Risk: <50 mg/dL LDL Cholesterol 80 mg/dL [facility] Comment: Lowest Risk: <100 mg/dL Lower Risk: 100-129 mg/dL Borderline High Risk: 130-159 mg/dL High Risk: 160-189 mg/dL Very High Risk: >vl=197 mg/dL Chol/HDL Ratio 3.6 ratio [facility] Lipid Interpretation See Note [facility] Comment: Lipid management should be guided by a p atient? s ASCVD risk, goals and preferences. ACC/AHA Guidelines recommend high intens ity statin if clinical ASCVD or LDL greater than or equal to 190 mg/dL. http://tinyurl.com/NWP-ECN-Ofbuxcwsw Adults aged 40-75 with LDL 70-189 mg/dL should have their 10 year ASCVD risk estimated with the ACC/AHA ASCVD risk es timator http://tools.acc.org/CCWKU-Qpay-Hxmffpeh r/ Statin should be discussed if risk [...] Location / / Volume Laterality Blood specimen 08/02/2018 9:51 AM 018 9:59 (specimen) EST AM EST Resulting Agency Comment Spec In Lab Eriberto Melgar MD CHEMISTRY ORDERABLES Performing Organization Address City/State/ZIP Code Phon e Number [place] [id number] Hemoglobin A1c (08/02/2018 9:51 AM EST) athologist Signature Hemoglobin A1C 5.3 4.3 - 5.6 [facility] [...] Mellitus, Diabetes Care 2013; 36: Suppl. 1, Z57-55 Est Avg Gluc 105 mg/dL [facility] Comment: eAG equivalents for HbA1c percentages: HbA1c(%) ?eAG(mg/dL) 6.0 ?126 6.5 ?140 7.0 ?154 7.5 ?169 8.0 ?183 8.5 ?197 9.0 ?212 9.5 ?226 10.0 ? 240 Limitations: The eAG calculation has not been validated on women, individuals below 18 years old and above 70 years old, and individuals with hemoglobinopathies. Additional resources are available on [facility] website. Edinson GRISSOM, Nathaniel J, Ari R, et al. ??Tr anslating the A1C assay into estimated average glucose values. ??Diabetes Care 2008:31(8):0232-8746. Specimen Anatomical Collection Method Collection Time Receive d Time (Source) Location / / Volume Laterality Blood specimen 08/02/2018 9:51 AM 018 9:59 (specimen) EST AM EST Resulting Agency Comment Spec In Lab Eriberto Melgar MD CHEMISTRY ORDERABLES Performing Organization Address City/State/[place] [address] (ABNORMAL) Comprehensive metabolic panel (non-fasting) (08/02/2018 9:51 AM EST) P athologist Signature Glucose Lvl 107 65 - 199 [facility] mg/dL [facility] Comment: Diabetes: >=200 mg/dL plus symp toms BUN 23 (H) 10 - 20 mg/dL [facility] Creatinine 1.30 0.80 - 1.50 mg/dL [facility] Sodium 128 (L) 135 - 145 mmol/L [facility] Potassium 4.9 3.5 - 5.0 mmol/L [facility] Comment: Please note: ??Patients with WBC >100,00 0 may have falsely elevated Potassium levels. ??For accurate Potassium quantif ication in these patients send serum separator tube (gold top) for subsequent determinations. ??Contact the Clinical Chemistry Laboratory if there are any qu estions. Chloride 92 (L) 98 - 107 mmol/L [facility] CO2 23 22 - 31 mmol/L [facility] Anion Gap 13 5 - 15 mmol/L [facility] Calcium 8.9 8.5 - 10.5 mg/dL [facility] Total Protein 7.4 6.1 - 8.0 gm/dL [facility] LABORATORY Albumin 4.1 3.2 - 5.2 gm/dL [facility] AST 21 0 - 39 unit/L [facility] ALT 20 0 - 55 unit/L [facility] Alk Phos 97 40 - 120 unit/L [facility] Total Bilirubin 1.0 0.2 - 1.3 mg/dL [facility] Estimated GFR 64 >=60 mL/min/1.73 m?? [facility] Comment: The eGFR was calculated using the CKD-EP I equation. As with all creatinine based estimates of kidney function, eGFR values calculated with the CKD-EPI equation are not accurate in patients wi th acute kidney failure, extremes of body mass or the acutely ill. http://[employer]/[facility] EDMONDnkf eGFR 74 >=60 mL/min/1.73 m?? [facility] Comment: The eGFR was calculated using the CKD-EP I equation. As with all creatinine based estimates of kidney function, eGFR values calculated with the CKD-EPI equation are not accurate in patients wi th acute kidney failure, extremes of body mass or the acutely ill. http://[employer]/[facility] EDMONDnkf Specimen Anatomical Collection Method Collection Time Receive d Time (Source) Location / / Volume Laterality Blood specimen 08/02/2018 9:51 AM 018 9:59 (specimen) EST AM EST Resulting Agency Comment Spec In Lab Eriberto Melgar MD CHEMISTRY ORDERABLES Performing Organization Address City/State/[place] [address] (ABNORMAL) Vitamin D, 25-Hydroxy (08/02/2018 9:51 AM EST) P athologist Signature 25-OH Vit D 21 (L) 30 - 100 [facility] Total ng/mL [facility] Comment: Deficient <10 ng/mL Insufficient 10 to 29 ng/mL Sufficient 30 to 100 ng/mL Potential Intoxication >100 ng/mL According to the [place] National Osteoporosi s Foundation, Vitamin D concentrations >30 ng/mL are sufficient to protect bone health. ??The National Kidney Foundation has similarly stated that pat ients with Vitamin D concentrations <30ng/mL should be considered to be insu fficient or deficient. http://[employer]/nkf-guidelines http://[employer]/nejm-VitD [employer] Vitamin D Immunoassay detec ts both 25-OH Vitamin D2 and 25-OH Vitamin D3, but only a total Vitamin D c oncentration is reported. Specimen Anatomical Collection Method Collection Time Receive d Time (Source) Location / / Volume Laterality Blood specimen 08/02/2018 9:51 AM 018 (specimen) EST 11:10 AM EST Resulting Agency Comment Spec In Lab Eriberto Melgar MD CHEMISTRY ORDERABLES Performing Organization Address City/[facility]/ZIP Code Phon e Number [address] Uric acid (08/02/2018 9:51 AM EST) P athologist Signature Uric Acid 7.3 3.5 - 8.5 [facility] mg/dL [facility] Specimen Anatomical Collection Method Collection Time Receive d Time (Source) Location / / Volume Laterality Blood specimen 08/02/2018 9:51 AM 018 9:59 (specimen) EST AM EST Resulting Agency Comment Spec In Lab Eriberto Melgar MD CHEMISTRY ORDERABLES Performing Organization Address City/[facility] Phon e Number [address] Tacrolimus level (08/02/2018 9:51 AM EST) P athologist Signature Tacrolimus Lvl 9.9 ng/mL [facility] Comment: Trough therapeutic: ??5-15 ng/mL Performed by ultra-performance liquid ch romatography tandem mass spectrometry (UPLCMS/MS). This test was developed and its performa nce characteristics determined by [facility]. It has not been cleared or approved by the FDA. The laboratory is regulated under CLIA a s qualified to perform high-complexity testing. This test is used for clinical purposes. It should not be regarded as investigational or for research. Specimen Anatomical Collection Method Collection Time Receive d Time (Source) Location / / Volume Laterality Blood specimen 08/02/2018 9:51 AM 018 (specimen) EST 11:10 AM EST Resulting Agency Comment Spec In Lab Eriberto Melgar MD CHEMISTRY ORDERABLES Performing Organization Address City/[facility]/ZIP Code Phon e Number [address] Reticulocyte Count (08/02/2018 9:51 AM EST) P athologist Signature Retic Ct % 1.3 0.7 - 2.6 [facility] LABORATORY Retic Ct Abs 0.050 0.030 - [facility] 0.120 [facility] x10(6)/[facility] LABORATORY Immature Retic% 6.8 0.0 - 15.6 [facility] K [facility] LABORATORY Reticulated Hgb 37.0 31.3 - [facility] 40.2 pg [facility] Specimen Anatomical Collection Method Collection Time Receive d Time (Source) Location / / Volume Laterality Blood specimen 08/02/2018 9:51 AM 018 9:59 (specimen) EST AM EST Resulting Agency Comment Spec In Lab Eriberto Melgar MD HEMATOLOGY ORDERABLES Performing Organization Address City/[facility] Phon e Number [address] (ABNORMAL) PTH (08/02/2018 9:51 AM EST) P athologist Signature PTH 79 (H) 15 - 65 [facility] pg/mL [facility]ORY Specimen Anatomical Collection Method Collection Time Receive d Time (Source) Location / / Volume Laterality Blood specimen 08/02/2018 9:51 AM 018 9:59 (specimen) EST AM EST Resulting Agency Comment Spec In Lab Eriberto Melgar MD CHEMISTRY ORDERABLES Performing Organization Address City/[facility]/[place] [address] Phosphorus (08/02/2018 9:51 AM EST) P athologist Signature Phosphorus 3.2 2.5 - 4.5 [facility] mg/dL [facility] Specimen Anatomical Collection Method Collection Time Receive d Time (Source) Location / / Volume Laterality Blood specimen 08/02/2018 9:51 AM 018 9:59 (specimen) EST AM EST Resulting Agency Comment Spec In Lab Eriberto Melgar MD CHEMISTRY ORDERABLES Performing Organization Address City/[facility]/ZIP Code Phon e Number [address] Magnesium (08/02/2018 9:51 AM EST) athologist Signature Magnesium 0.80 0.69 - 1.07 [facility] mmol/L [facility] LABOR[facility]ORY Specimen Anatomical Collection Method Collection Time Receive d Time (Source) Location / / Volume Laterality Blood specimen 08/02/2018 9:51 AM 018 9:59 (specimen) EST AM EST Resulting Agency Comment Spec In Lab Eriberto Melgar MD CHEMISTRY ORDERABLES Performing Organization Address City/[facility]/ZIP Code Phon e Number [address] Lipase (08/02/2018 9:51 AM EST) athologist Signature Lipase 19 0 - 60 [facility] unit/[facility] Specimen Anatomical Collection Method Collection Time Receive d Time (Source) Location / / Volume Laterality Blood specimen 08/02/2018 9:51 AM 018 9:59 (specimen) EST AM EST Resulting Agency Comment Spec In Lab Eriberto Melgar MD CHEMISTRY ORDERABLES Performing Organization Address City/[facility]/ZIP Code Phon e Number [address] Gold Tube HOLD (08/02/2018 9:51 AM EST) P athologist Signature Gold Hold Sample in [facility] LABORATORY Specimen Anatomical Collection Method Collection Time Receive d Time (Source) Location / / Volume Laterality Blood specimen 08/02/2018 9:51 AM 9:59 (specimen) EST AM EST Eriberto Melgar MD CHEMISTRY ORDERABLES Performing Organization Address City/[facility]/ZIP Code Phon e Number [address] Amylase (08/02/2018 9:51 AM EST) P athologist Signature Amylase 49 28 - 100 [facility] [place] unit/L [facility] Specimen Anatomical Collection Method Collection Time Receive d Time (Source) Location / / Volume Laterality Blood specimen 08/02/2018 9:51 AM 018 9:59 (specimen) EST AM EST Resulting Agency Comment Spec In Lab Eriberto Melgar MD CHEMISTRY ORDERABLES Performing Organization Address [facility] Phon e Number [address] 1,25-dihydroxycholecalciferol (08/02/2018 9:51 AM EST) athologist Signature Vit D ,25 45 18 - 64 [facility] [place] pg/mL [facility] Comment: ADDITIONAL INFORMATIO N This test was developed and its performa nce characteristics determined by [facility] in a manner co nsistent with CLIA requirements. This test has not been gene ared or approved by the U.S. Food and Drug Administration. 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
--- OUTSIDE RECORDS SUMMARY | 2022-03-13 18:27 | XMS_ITS | Encounter Summary ---
:1965 Author Organization [facility] [place] [address] Care Team Providers Name Role Phone Anna Mullen MD Primary Care Provider Reason for Visit Reason Comments Medication Refill Encounter Details Date Type Department Care Team Description 05/12/2018 Refill [facility] [place] [address] [place] [address] [phone] (Wo rk) Social History Tobacco Use Types [...] on filedocumented in this encounter Care Teams Line Appliance Assembler Relationship Specialty Start Date End Date Anna Mullen MD PCP - General 12/03/10 [address] [place], [place] [address] documented as of this encounter
--- OUTSIDE RECORDS SUMMARY | 2022-03-13 18:27 | XMS_ITS | Encounter Summary ---
:1965 Author Organization [facility] [place] [address] Care Team Providers Name Role Phone Anna Mullen MD Primary Care Provider Encounter Details Date Type Department Care Team Description 07/29/2017 Hospital Encounter [place] [address] Social History Tobacco Use Types Packs/Day [...] Sig Dispensed Refills Start Date End Date fexofenadine (BECKY) Take 60 mg by mouth [...] 09/14/2012 mg tablet Dx code :250.60 traZODone (DESYREL) 50 TAKE ONE TABLET BY [...] mg by mouth 0 08/30/2019 Chewable daily. lisinopril Take 20 mg by mouth 0 08/03 (PRINIVIL;ZESTRIL) 20 daily. mg Tablet levothyroxine Take 150 mcg by 0 2016 (SYNTHROID) 175 mcg mouth daily. tablet acetaminophen (TYLENOL) Take 2 tablets by 30 tablet 0 09/0205/22/2020 325 mg tablet mouth every 4 hours as needed (Pain, Fever. if oral temperature greater than 38.5 Centigrade). documented as of this encounter Plan of Treatment Not on filedocumented as of this encounter Procedures Procedure Name Priority Date/Time Associated Diagnosis Comme nts FILM LIBRARY Routine 07/29/2017 12:00 AM Results for this STORAGE ONLY CT EST procedure ar e in CHEST ABDOMEN the results PELVIS section. documented in this encounter Results Film Library- Storage Only CT Chest Abdomen Pelvis (07/29/2017 12:00 AM EST) Specimen (Source) Anatomical Location Collection Method / Collectio n Time Received Time / Laterality Volume Narrative JANE - 07/31/2017 6:24 PM EST This exam is for storage only and is aut o-finalizing. Bruce Moreno III, MD Brigitte FILM LIBRARY ORDERAB LES Performing Organization Address City/State/ZIP Code Phon e Number JANE JANE [place], [place] documented in this encounter Visit Diagnoses Not on filedocumented in this encounter Care Teams Sericulture Teacher Relationship Specialty Start Date End Date Anna Mullen MD PCP - General 12/03/10 [address] [place] [address] documented as of this encounter
--- OUTSIDE RECORDS SUMMARY | 2022-03-13 18:27 | XMS_ITS | Encounter Summary ---
:1965 Author Organization [place] [address] Care Team Providers Name Role Phone Anna Mullen MD Primary Care Provider Reason for Visit Reason Onset Date Comments Medication Refill 03/08/2018 Encounter Details Date Type Department Care Team Description 03/08/2018 Refill Solid Organ Transplant [place] [address] Social History Tobacco Use Types Packs/Day [...] on filedocumented in this encounter Care Teams Daily Release And Dupe Printer Relationship Specialty Start Date End Date Anna Mullen MD PCP - General 12/03/10 [address] [place], [place] [address] documented as of this encounter
--- OUTSIDE RECORDS SUMMARY | 2022-03-13 18:27 | XMS_ITS | Encounter Summary ---
:1965 Author Organization [facility] [address] Care Team Providers Name Role Phone Anna Mullen MD Primary Care Provider Encounter Details Date Type Department Care Team Description 08/02/2018 Laboratory Appointment Lab 3L [facility] Immunosuppression; [facility] [place] [address] Social History Tobacco Use [...] Procedure Name Priority Date/Time Associated Comments Diagnosis CALCIUM CREATININE STAT 08/02/2018 9:57 AM Immunosupp ression Results for this RATIO, RANDOM URINE EST Pancreas replaced pro cedure are in by transplant the results section. PROTEIN/CREATININE Routine 08/02/2018 9:57 AM Immunosupp ression Results for this RATIO, URINE EST Pancreas replaced procedure are in by transplant the results section. PHOSPHORUS, URINE, STAT 08/02/2018 9:57 AM Immunosupp ression Results for this RANDOM EST Pancreas replaced procedure are in by transplant the results section. MAGNESIUM, URINE, Routine 08/02/2018 9:57 AM Immunosuppr ession Results for this RANDOM EST Pancreas replaced procedure are in by transplant the results section. URINALYSIS WITH REFLEX STAT 08/02/2018 9:57 AM Immuno suppression Results for this CULTURE EST Pancreas replaced procedure are in by transplant the results section. PTH STAT 08/02/2018 9:51 AM Immunosuppres pankaj Results for this EST Pancreas replaced procedure are in by transplant the results section. HEMOGRAM STAT 08/02/2018 9:51 AM Immunosuppres pankaj Results for this EST Pancreas replaced procedure are in by transplant the results section. DIFFERENTIAL, STAT 08/02/2018 9:51 AM Immunosuppres pankaj Results for this AUTOMATED EST Pancreas replaced procedure are in by transplant the results section. GOLD TUBE HOLD STAT 08/02/2018 9:51 AM Immunosuppres pankaj Results for this EST Pancreas replaced procedure are in by transplant the results section. TACROLIMUS LEVEL STAT 08/02/2018 9:51 AM Immunosuppre ssion Results for this EST Pancreas replaced procedure are in by transplant the results section. 1,25-DIHYDROXYCHOLECAL STAT 08/02/2018 9:51 AM Immuno suppression Results for this CIFEROL EST Pancreas replaced procedure are in by transplant the results section. VITAMIN D, 25-HYDROXY STAT 08/02/2018 9:51 AM Immunos uppression Results for this EST Pancreas replaced procedure are in by transplant the results section. RETICULOCYTE COUNT STAT 08/02/2018 9:51 AM Immunosupp ression Results for this EST Pancreas replaced procedure are in by transplant the results section. CBC (WITH DIFF) STAT 08/02/2018 9:51 AM Immunosuppres pankaj EST 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 URIC ACID STAT 08/02/2018 9:51 AM Immunosuppres pankaj Results for this EST Pancreas replaced procedure are in by transplant the results section. PHOSPHORUS STAT 08/02/2018 9:51 AM Immunosuppres pankaj Results for this EST Pancreas replaced procedure are in by transplant the results section. MAGNESIUM STAT 08/02/2018 9:51 AM Immunosuppres pankaj Results for this EST Pancreas replaced procedure are in by transplant the results section. LIPASE STAT 08/02/2018 9:51 AM Immunosuppres pankaj Results for this EST Pancreas replaced procedure are in by transplant the results section. HEMOGLOBIN A1C STAT 08/02/2018 9:51 AM Immunosuppres pankaj Results for this EST Pancreas replaced procedure are in by transplant the results section. AMYLASE STAT 08/02/2018 9:51 AM Immunosuppres pankaj Results for this EST Pancreas replaced procedure are in by transplant the results section. LIPID PANEL (REFLEX STAT 08/02/2018 9:51 AM Immunosup pression Results for this DIRECT LDL) EST Pancreas replaced procedure are in by transplant the results section. COMPREHENSIVE STAT 08/02/2018 9:51 AM Immunosuppres pankaj Results for this METABOLIC PANEL EST Pancreas replaced procedu re are in (NON-FASTING) by transplant the results section. documented in this encounter Results Calcium Creatinine Ratio, random urine (08/02/2018 9:57 AM EST) P athologist Signature U Calcium 1.5 mg/dL [facility] U Creatinine 52 mg/dL [facility] Ca/Cre Ratio 0.03 ratio [facility] Specimen Anatomical Collection Method Collection Time Receive d Time (Source) Location / / Volume Laterality Urine specimen 08/02/2018 9:57 AM 018 (specimen) EST 10:08 AM EST Resulting Agency Comment Spec In Lab Eriberto Melgar MD URINE ORDERABLES Performing Organization Address City/State/ZIP Code Phon e Number [address] Magnesium, urine, random (08/02/2018 9:57 AM EST) P athologist Signature U Mg Ran 0.89 mmol/L [facility] Specimen Anatomical Collection Method Collection Time Receive d Time (Source) Location / / Volume Laterality Urine specimen 08/02/2018 9:57 AM 018 (specimen) EST 10:08 AM EST Resulting Agency Comment Spec In Lab Eriberto Melgar MD URINE ORDERABLES Performing Organization Address City/[facility]/ZIP [facility] Phon e Number [address] Phosphorus, urine, random (08/02/2018 9:57 AM EST) P athologist Signature U Phosphorus 30.6 mg/dL [facility] Specimen Anatomical Collection Method Collection Time Receive d Time (Source) Location / / Volume Laterality Urine specimen 08/02/2018 9:57 AM 018 (specimen) EST 10:08 AM EST Resulting Agency Comment Spec In Lab Eriberto Melgar MD URINE ORDERABLES Performing Organization Address City/[facility]/ZIP Code Phon e Number [address] Urinalysis with reflex Culture (08/02/2018 9:57 AM EST) Patholo gist Method Time Signature Glucose UA Negative Negative [facility] mg/dL [facility] Protein UA Negative Negative [facility] mg/dL [facility] Bilirubin UA Negative Negative [facility] mg/dL [facility] Comment: Clinical correlation required for positi ve Urine Bilirubin results as false positive may occur with some drugs and d rug related products. If a false positive is suspected a serum total bili sinha should be considered if clinically indicated. Urobilinogen UA Normal Normal mg/dL [facility] pH UA 6.0 5.0 - 8.0 [facility] Blood UA Negative Negative mg/dL [facility] Ketones UA Negative Negative mg/dL [facility] Nitrite UA Negative Negative [facility] Leukocytes UA Negative Negative [facility] LABORATORY Appearance UA Clear Clear [facility] Spec [place] UA 1.008 1.002 - 1.030 [facility] Color UA Straw Yellow [facility] Culture Reflexed No [facility] Specimen (Source) Anatomical Collection Method Collection Time Re ceived Time Location / / Volume Laterality Urine specimen 08/02/2018 9:57 08/02/2018 obtained by clean AM EST 10:[address] catch procedure (specimen) Resulting Agency Comment Spec In Lab Eriberto Melgar MD URINE ORDERABLES Performing Organization Address City/[facility]/ZIP Code Phon e Number [address] Protein/Creatinine Ratio, urine (08/02/2018 9:57 AM EST) P athologist Signature U Creatinine 52 mg/dL [facility] U Protein Ran <6 0 - 12 [facility] mg/dL [place] Prot/Cre Ratio <0.1 ratio [facility] Specimen Anatomical Collection Method Collection Time Receive d Time (Source) Location / / Volume Laterality Urine specimen 08/02/2018 9:57 AM 018 (specimen) EST 10:08 AM EST Resulting Agency Comment Spec In Lab Eriberto Melgar MD URINE ORDERABLES Performing Organization Address City/State/[place] [address] (ABNORMAL) Differential, Automated (08/02/2018 9:51 AM EST) [facility] gist Method Time Signature Neutrophils % 36.2 % [facility] Neutr Abs (ANC) 2.71 1.70 - [facility] 6.10 [facility] x10(3)/[facility] LABORATORY Lymphocytes % 51.9 % [facility] Lymphocytes Abs 3.9 (H) 0.9 - 3.2 [facility] x10(3)/[facility] LABORATORY Monocytes % 7.7 % [facility] Monocyte Abs 0.6 0.3 - 0.9 [facility] x10(3)/[facility] LABORATORY Eosinophils % 2.9 % [facility] Eosinophils Abs 0.2 0.0 - 0.4 [facility] x10(3)/[facility] LABORATORY Basophils % 0.8 % [facility] Basophils Abs 0.1 0.0 - 0.1 [facility] x10(3)/[facility] LABORATORY Immature Gran % 0.50 % [facility] Comment: Immature granulocytes(IG's)percentage an d absolute count will include metamyelocytes, myelocytes, and promyelo cytes. Blood smears from CBCs yielding IG's will be scanned manually for concor dance. If this scan disagrees with the automated IG or if promyelocytes are not ed, a manual differential will be performed. Kym Gran Abs 0.04 0.00 - 0.04 x10(3)/[facility] LABORATORY Specimen Anatomical Collection Method Collection Time Receive d Time (Source) Location / / Volume Laterality Blood specimen 08/02/2018 9:51 AM 018 9:59 (specimen) EST AM EST Resulting Agency Comment Spec In Lab Eriberto Melgar MD HEMATOLOGY ORDERABLES Performing Organization Address City/State/[place] [address] (ABNORMAL) Hemogram (08/02/2018 9:51 AM EST) Analysis Performed At Patho logist Time Signature WBC 7.5 4.0 - 9.5 [facility] x10(3)/[facility] LABORATORY RBC 4.20 (L) 4.58 - [place] 5.54 [facility] x10(6)/[facility] LABORATORY Hemoglobin 13.2 (L) 13.7 - [facility] 16.5 gm/dL [facility] Hematocrit 38.4 (L) 40.5 - [facility] 48.5 % [facility] MCV 91.4 82.9 - [facility] [facility] LABORATORY MCH 31.4 27.5 - [facility] 32.1 pg [facility] MCHC 34.4 32.0 - [facility] 35.7 gm/dL [facility] Platelets 217 145 - 357 [facility] x10(3)/[facility] LABORATORY RDWSD 42.0 36.0 - [facility] [address] [facility] LABORATORY RDWCV 12.8 11.4 - [facility] 13.8 % [facility] LABORATORY MPV 10.0 7.6 - 12.9 [facility] LABORATORY nRBC % Auto 0.0 % [facility] nRBC Abs Auto 0.000 0.000 - [place] 0.000 [facility] x10(3)/[facility] LABORATORY Specimen Anatomical Collection Method Collection Time Receive d Time (Source) Location / / Volume Laterality Blood specimen 08/02/2018 9:51 AM 018 9:59 (specimen) EST AM EST Resulting Agency Comment Spec In Lab Eriberto Melgar MD HEMATOLOGY ORDERABLES Performing Organization Address City/State/[place] [address] 1,25-dihydroxycholecalciferol (08/02/2018 9:51 AM EST) P athologist Signature Vit D 1,25 45 18 - 64 [place] pg/mL [facility] Comment: ADDITIONAL INFORMATIO N This test was developed and its performa nce characteristics determined by [facility] in a manner co nsistent with CLIA requirements. This test has not been gene ared or approved by the U.S. Food and Drug Administration. Test Performed by: [facility] [address] [place], [place] [address] Specimen Anatomical Collection Method Collection Time Receive d Time (Source) Location / / Volume Laterality Blood specimen 08/02/2018 9:51 AM 018 1:12 (specimen) EST PM EST Resulting Agency Comment Spec In Lab Eriberto Melgar MD CHEMISTRY ORDERABLES Performing Organization Address City/[facility]/ZIP Code Phon e Number [address] Amylase (08/02/2018 9:51 AM EST) athologist [facility] Amylase 49 28 - 100 [facility] unit/L [facility] Specimen Anatomical Collection Method Collection Time Receive d Time (Source) Location / / Volume Laterality Blood specimen 08/02/2018 9:51 AM 018 9:59 (specimen) EST AM EST Resulting Agency Comment Spec In Lab Eriberto Melgar MD CHEMISTRY ORDERABLES Performing Organization Address City/[facility]/ZIP [facility] [place] [place] [address] Gold Tube HOLD (08/02/2018 9:51 AM EST) athologist Signature Gold Hold Sample in [facility]. [facility] Specimen Anatomical Collection Method Collection Time Receive d Time (Source) Location / / Volume Laterality Blood specimen 08/02/2018 9:51 AM 018 9:59 (specimen) EST AM EST Eriberto Melgar MD CHEMISTRY ORDERABLES Performing Organization Address City/[facility]/[place] [address] Lipase (08/02/2018 9:51 AM EST) P athologist Signature Lipase 19 0 - 60 [facility]/L [facility] Specimen Anatomical Collection Method Collection Time Receive d Time (Source) Location / / Volume Laterality Blood specimen 08/02/2018 9:51 AM 018 9:59 (specimen) EST AM EST Resulting Agency Comment Spec In Lab Eriberto Melgar MD CHEMISTRY ORDERABLES Performing Organization Address City/[facility]/ZIP Code Phon e Number [address] Magnesium (08/02/2018 9:51 AM EST) P athologist Signature Magnesium 0.80 0.69 - 1.07 [facility] mmol/L [facility] Specimen Anatomical Collection Method Collection Time Receive d Time (Source) Location / / Volume Laterality Blood specimen 08/02/2018 9:51 AM 018 9:59 (specimen) EST AM EST Resulting Agency Comment Spec In Lab Eriberto Melgar MD CHEMISTRY ORDERABLES Performing Organization Address City/[facility]/ZIP Code Phon e Number [address] Phosphorus (08/02/2018 9:51 AM EST) P athologist Signature Phosphorus 3.2 2.5 - 4.5 [place] mg/dL [facility] Specimen Anatomical Collection Method Collection Time Receive d Time (Source) Location / / Volume Laterality Blood specimen 08/02/2018 9:51 AM 018 9:59 (specimen) EST AM EST Resulting Agency Comment Spec In Lab Eriberto Melgar MD CHEMISTRY ORDERABLES Performing Organization Address City/[facility]/ZIP Code Phon e Number [address] (ABNORMAL) PTH (08/02/2018 9:51 AM EST) P athologist Signature PTH 79 (H) 15 - 65 [place] pg/mL [facility] Specimen Anatomical Collection Method Collection Time Receive d Time (Source) Location / / Volume Laterality Blood specimen 08/02/2018 9:51 AM 018 9:59 (specimen) EST AM EST Resulting Agency Comment Spec In Lab Eriberto Melgar MD CHEMISTRY ORDERABLES Performing Organization Address City/[facility]/ZIP Code Phon e Number [address] Reticulocyte Count (08/02/2018 9:51 AM EST) athologist Signature Retic Ct % 1.3 0.7 - 2.6 [facility] Retic Ct Abs 0.050 0.030 - [facility] 0.120 [facility] x10(6)/[facility] LABORATORY Immature Retic% 6.8 0.0 - 15.6 [facility] K [facility] Reticulated Hgb 37.0 31.3 - [facility] 40.2 pg [facility] Specimen Anatomical Collection Method Collection Time Receive d Time (Source) Location / / Volume Laterality Blood specimen 08/02/2018 9:51 AM 018 9:59 (specimen) EST AM EST Resulting Agency Comment Spec In Lab Eriberto Melgar MD HEMATOLOGY ORDERABLES Performing Organization Address City/[facility] [[email or web address]] Code Phon e Number [address] Tacrolimus level (08/02/2018 9:51 AM EST) athologist Signature Tacrolimus Lvl 9.9 ng/mL [facility] Comment: Trough therapeutic: ??5-15 ng/mL Performed by ultra-performance liquid ch romatography tandem mass spectrometry (UPLCMS/MS). This test was developed and its performa nce characteristics determined by [facility]. It has not been cleared [...] [facility] [place]/ZIP Code Phon e Number [address] Uric acid (08/02/2018 9:51 AM EST) P athologist Signature Uric Acid 7.3 3.5 - 8.5 [facility] mg/dL [facility] Specimen Anatomical Collection Method Collection Time Receive d Time (Source) Location / / Volume Laterality Blood specimen 08/02/2018 9:51 AM 018 9:59 (specimen) EST AM EST Resulting Agency Comment Spec In Lab Eriberto Melgar MD CHEMISTRY ORDERABLES Performing Organization Address City/[facility] Phon e Number [address] (ABNORMAL) Vitamin D, 25-Hydroxy (08/02/2018 9:51 AM EST) athologist Signature 25-OH Vit D 21 (L) 30 - 100 [facility] Total ng/mL [facility] Comment: Deficient <10 ng/mL Insufficient 10 to 29 ng/mL Sufficient 30 to 100 ng/mL Potential Intoxication >100 ng/mL According to the [place] National Osteoporosi s Foundation, Vitamin D concentrations >30 ng/mL are sufficient to protect bone health. ??The National Kidney Foundation has similarly stated that pat ients with Vitamin D concentrations <30ng/mL should be considered to be insu fficient or deficient. http://[employer]com/nkf-guidelines http://[employer]com/nejm-VitD [employer] Vitamin D Immunoassay detec [...] [facility]/ZIP [place] [address] (ABNORMAL) Comprehensive metabolic panel (non-fasting) (08/02/2018 9:51 AM EST) P athologist Signature Glucose Lvl 107 65 - 199 [facility] mg/dL [facility] Comment: Diabetes: >=200 mg/dL plus symp toms BUN 23 (H) 10 - 20 mg/dL [facility] Creatinine 1.30 0.80 - 1.50 mg/dL [facility] Sodium 128 (L) 135 - 145 mmol/L [facility] Potassium 4.9 3.5 - 5.0 mmol/L [facility] Comment: Please note: ??Patients with WBC >100,00 0 may have falsely elevated Potassium levels. ??For accurate Potassium quantif ication in these patients send serum separator tube (gold top) for subsequent determinations. ??Contact the Clinical Chemistry Laboratory if there are any qu estions. Chloride 92 (L) 98 - 107 mmol/L [facility] CO2 23 22 - 31 mmol/L [facility] Anion Gap 13 5 - 15 mmol/L [facility] Calcium 8.9 8.5 - 10.5 mg/dL [facility] Total Protein 7.4 6.1 - 8.0 gm/dL [facility] Albumin 4.1 3.2 - 5.2 gm/dL [facility] AST 21 0 - 39 unit/L [facility] ALT 20 0 - 55 unit/L [facility] Alk Phos 97 40 - 120 unit/L [facility] Total Bilirubin 1.0 0.2 - 1.3 mg/dL [facility] Estimated GFR 64 >=60 mL/min/1.73 m?? [facility] Comment: The eGFR was calculated using the CKD-EP I equation. As with all creatinine based estimates of kidney function, eGFR values calculated with the CKD-EPI equation are not accurate in patients wi th acute kidney failure, extremes of body mass or the acutely ill. http://[employer]/[facility] ADAnkf eGFR 74 >=60 mL/min/1.73 m?? [facility] Comment: The eGFR was calculated using the CKD-EP I equation. As with all creatinine based estimates of kidney function, eGFR values calculated with the CKD-EPI equation are not accurate in patients wi th acute kidney failure, extremes of body mass or the acutely ill. http://[employer]/[facility] AD[facility]kf Specimen Anatomical Collection Method Collection Time Receive d Time (Source) Location / / Volume Laterality Blood specimen 08/02/2018 9:51 AM 018 9:59 (specimen) EST AM EST Resulting Agency Comment Spec In Lab Eriberto Melgar MD CHEMISTRY ORDERABLES Performing Organization Address City/State/ZIP Code Phon e Number [place] [id number] Hemoglobin A1c (08/02/2018 9:51 AM EST) athologist Signature Hemoglobin A1C 5.3 4.3 - 5.6 [facility] Comment: Reference Range: 4.3 [...] Mellitus, Diabetes Care 2013; 36: Suppl. 1, S67-30 Est Avg Gluc 105 mg/dL [facility] [...] hemoglobinopathies. Additional resources are available on [facility] ADA website. Edinson GRISSOM, Nathaniel J, Ari R, et al. ??Tr anslating the A1C assay into estimated average glucose values. ??Diabetes Care 2008:31(8):8334-8369. Specimen Anatomical Collection Method Collection Time Receive d Time (Source) Location / / Volume Laterality Blood specimen 08/02/2018 9:51 AM 018 9:59 (specimen) EST AM EST Resulting Agency Comment Spec In Lab Eriberto Melgar MD CHEMISTRY ORDERABLES Performing Organization Address City/State/[place] [address] Lipid Panel (08/02/2018 9:51 AM EST) P athologist Signature Chol, Total 142 mg/dL [facility] Comment: Lower Risk: <200 mg/dL Average Risk: 200-239 mg/dL Higher Risk: >hj=056 mg/dL Triglycerides 115 mg/dL [facility] Comment: Average Risk/Lower Risk: <150 mg/dL Borderline High Risk: 150-199 mg/dL High Risk: 200-499 mg/dL Very High Risk: >wj=942 mg/dL HDL 39 mg/dL [facility] Comment: Males: ?? Higher Risk: <40 mg/dL Females: ?? HIgher Risk: <50 mg/dL LDL Cholesterol 80 mg/dL [facility] Comment: Lowest Risk: <100 mg/dL Lower Risk: 100-129 mg/dL Borderline High Risk: 130-159 mg/dL High Risk: 160-189 mg/dL Very High Risk: >ic=049 mg/dL Chol/HDL Ratio 3.6 ratio [facility] Lipid Interpretation See Note [place] [facility] Comment: Lipid management should be guided by a p atient? s ASCVD risk, goals and preferences. ACC/AHA Guidelines recommend high intens ity statin if clinical ASCVD or LDL greater than or equal to 190 mg/dL. 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
--- OUTSIDE RECORDS SUMMARY | 2022-03-13 18:27 | XMS_ITS | Encounter Summary ---
:1965 Author Organization [facility] Address [address] [place] [address] Care Team Providers Name Role Phone Anna Mullen MD Primary Care Provider Reason for Visit Reason Comments Pancreas Transplant Follow-up Immunotherapy Post Hospital Discharge Encounter Details Date Type Department Care Team Description 09/15/2017 Office Visit Solid Organ Eriberto Melgar pression; Transplant at [facility] [place] [place] MD Arlyn 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; [facility]ft ercare following organ transplant; Drive Prophylactic immunotherapy; [place], [place] [employer] Coxsackie virus infection [id number] [place] [address] [phone] Social History Tobacco Use Types Packs/Day Years Used Date Never Smoker Smokeless Tobacco: Never Used Alcohol Use Standard Drinks/Week Comments No 0 (1 standard drink = 0.6 oz pure alcoho l) history of abuse, stopped 1996 Sex Assigned at Date Recorded Male 05/29/2021 11:28 PM EDT documented as of this encounter Last Filed Vital Signs Vital Sign Reading Time Taken Comments Blood Pressure 118/60 09/15/2017 9:56 AM EST manual Pulse 85 09/15/2017 9:56 AM EST Temperature 36.8 ??C (98.2 ??F) 09/15/2017 9:56 AM EST Respiratory Rate - - Oxygen Saturation 100% 09/15/2017 9:56 AM EST Inhaled Oxygen Concentration - - Weight 93.9 kg (207 lb) 09/15/2017 9:56 AM EST Height - - Body Mass Index 28.07 08/01/2017 7:30 AM EST documented in this encounter Progress Notes Nicky Jaramillo CMA - 09/15/2017 10:00 AM EST Confirmed patient's last name and Reviewed tobacco use, all allergies and meds, dose and frequency. No changes, no missed doses. No additional OTC meds, nutritional or herbal supplements. Reviewed education tab. Reviewed immunizations;flu shot done at PCP 05/17. Gave patient standing orders. Eriberto Melgar MD - 09/15/2017 10:00 AM EST [facility] Transplant Nephrology Follow Up ? Reese Hsu [id number] 1965 ? Transplant ID: Patient:?? Reese Hsu Transplant Date: ?? 08/28/2013? Organ(s) ?? Pancreas? [place] organ diagnosis: ?? Diabetes Mellitus - Type I (Pancreas)? 09/15/2017 ? Transplant ID:??Mr. Reese Hsu is a White Not nor 52 y.o. male who is Status Post Pancreas transplantation. Mr. Reese Hsu presents to clinic for routine follow-up of care of his Pancreas transplantation after his admission for likely coxsackie viral infection aka pleurodynia. The features of his infection included fever, myalgias, arthralgias, pleural effusions, and left sphenoid sinusitis. His chronic back issues have been addressed both by the [facility] and his Orthopedic surgeon. He is now followed by a chiropractor in [place], [place]. ? Interim Hx: He feels as though he has recovered nicely over the last 2-3 weeks since discharge from for coxsackie associated pleurodynia. 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 His review of systems were neither positive or negative. His RBS have all been normal. ?? Active Ambulatory Problems Diagnosis Date Noted [...] Fever 07/31/2017 ??? Coxsackie virus infection 09/28/2017 Resolved Ambulatory Problems Diagnosis Date Noted ??? [...] Papillary fibroelastoma of heart ??? Severe headache Following was addressed with the patient: ?? Healthcare maintenance for a transplant recipient: ? Immunizations (no live virus or modified bacterial vaccines) Prevnar 13 once in a lifetime Pneumovax 23 every 5 years Tdap every 10 years Annual flu shot Annual PCP exam Annual YULISSA and PSA for males over 45 Every 5 year colonoscopy after age 50 Monthly self skin exam, daily spf 50 sunblock, annual derm consult if hx of skin cancer Annual eye exam uptodate Semi annual dental evaluation with prophylactic antibiotics Cardiac stress test after age 50, every 3 years for diabetics, every 5 for non diabetics; needs one this year [place] kidney ultrasound looking for renal cell CA, every 5 years post transplant Bone density assessment every 9-12 years post transplant Annual fasting lipid profile Annual PTH-Vit D3 assessment until normalized Annual 24 hour timed urine for creatinine, protein, calcium, phosphate, magnesium ? ROS: Denies fevers, chills, nausea, vomiting, diarrhea, abd pain, chest pain, sob. All other review of systems were neither positive or negative ? Medications: ?? Current Outpatient Prescriptions: ??? guaiFENesin (ROBITUSSIN) 20 mg/mL Liquid, Take [...] by mouth daily., Disp: , Rfl: ??? traZODone (DESYREL) 50 mg Tablet, TAKE ONE TABLET BY MOUTH EVERY EVENING, Disp: 90 tablet, Rfl: 3 ??? PROGRAF 1 mg Capsule, Take 2 mg twice daily. Pancreas transplant 08/28/2013. ICD code Z94.0, Disp: 120 capsule, Rfl: 11 ??? fexofenadine (BECKY) 60 mg Tablet, Take 60 mg by mouth daily., Disp: , Rfl: ??? CELLCEPT 250 mg Capsule, TAKE TWO CAPSULES BY MOUTH TWICE A DAY, Disp: 360 capsule, Rfl: 3 ??? Magnesium Gluconate (MAG-G) 27 mg (500 [...] :250.60, Disp: 60 tablet, Rfl: 6 Allergies / ADRs: ? Allergies Allergen Reactions ??? Nexium [Esomeprazole Magnesium] Diarrhea ? Any acid reflux medication causes severe diarrhea ??? Prilosec [Omeprazole Magnesium] Diarrhea ??? Reglan [Metoclopramide Hcl] ? TD ??? Simvastatin ? Immunization History Administered Date(s) Administered ??? Influenza PF, Split 05/31/2014, 05/19/2016 ??? Influenza Vaccine w/Preservative, Split 05/22/2012 ??? Influenza Vaccine, Whole 06/11/2009 ??? Pneumococcal Conjugate (13 Valent) 02/22/2016 ??? Pneumococcal Polyvalent 23 08/31/2003, 05/09/2009, 06/14/2014 ??? Tdap Vaccine 03/05/2011 PHYSICAL EXAM: Vitals Office Visit from 09/15/2017 in Transplant at [facility] Weight 93.9 kg (207 lb) Temp 36.8 ??C (98.2 ??F) Temp src Oral Heart Rate 85 BP 118/60 [manual] Patient Position Sitting SpO2 100 % Gen - AAO x 3 in NAD Skin - No exanthem. HEENT - Mucous membranes moist. Chest: Lungs clear to ausculatation w/o wheezes/ rhonchi/ crackles. Heart - S1 and S2 clear w/o murmur, gallop, or rub. JVP not elevated. Abd - Soft. + BS. No bruit. Non tender. No organomegaly. Ext - Warm. No cyanosis. No dependent edema. ? Labs/ Imaging: Results for REESE HSU ( ) as of 09/28/2017 16:15 Ref. Range 09/15/2017 09:08 09/15/2017 09:08 09/15/2017 09:11 WBC Latest Ref Range: 4.0 - 9.5 x10(3)/mcL 7.0 RBC Latest Ref Range: 4.58 - 5.54 x10(6)/mcL 4.45 (L) Hemoglobin Latest Ref Range: 13.7 - 16.5 gm/dL 13.0 (L) Hematocrit Latest Ref Range: 40.5 - 48.5 % 38.4 (L) MCV Latest Ref Range: 82.9 - 93.1 fL 86.3 MCH Latest Ref Range: 27.5 - 32.1 pg 29.2 MCHC Latest Ref Range: 32.0 - 35.7 gm/dL 33.9 RDWSD Latest Ref Range: 36.0 - 45.0 fL 41.1 RDWCV Latest Ref Range: 11.4 - 13.8 % 13.2 Platelets Latest Ref Range: 145 - 357 x10(3)/mcL 255 MPV Latest Ref Range: 7.6 - 12.[address] % Latest Ref Range: 0.7 - 2.6 % 1.[address] Abs Latest Ref Range: 0.030 - 0.120 x10(6)/mcL 0.040 Immature Retic% Latest Ref Range: 0.0 - 15.6 % 4.9 Reticulated Hgb Latest Ref Range: 31.3 - 40.2 pg 34.1 nRBC % Auto Latest Units: % 0.0 nRBC Abs Auto Latest Ref Range: 0.000 - 0.000 x10(3)/mcL 0.000 Neutr Abs (ANC) Latest Ref Range: 1.70 - 6.10 x10(3)/mcL 2.69 Neutrophils % Latest Units: % 38.6 Immature Gran % Latest Units: % 0.40 Lymphocytes % Latest Units: % 47.2 Monocytes % Latest Units: % 9.8 Eosinophils % Latest Units: % 3.6 Basophils % Latest Units: % 0.4 Kym Gran Abs Latest Ref Range: 0.00 - 0.04 x10(3)/mcL 0.03 Lymphocytes Abs Latest Ref Range: 0.9 - 3.2 x10(3)/mcL 3.3 (H) Monocyte Abs Latest Ref Range: 0.3 - 0.9 x10(3)/mcL 0.7 Eosinophils Abs Latest Ref Range: 0.0 - 0.4 x10(3)/mcL 0.2 Basophils Abs Latest Ref Range: 0.0 - 0.1 x10(3)/mcL 0.0 Sodium Latest Ref Range: 135 - 145 mmol/L 134 (L) Potassium Latest Ref Range: 3.5 - 5.0 mmol/L 4.5 Chloride Latest Ref Range: 98 - 107 mmol/L 97 (L) CO2 Latest Ref Range: 22 - 31 mmol/L 27 Anion Gap Latest Ref Range: 5 - 15 mmol/L 10 BUN Latest Ref Range: 10 - 20 mg/dL 15 Creatinine Latest Ref Range: 0.80 - 1.50 mg/dL 1.17 Estimated GFR Latest Ref Range: >=60 >60 Glucose Fasting Latest Ref Range: 65 - 99 mg/dL 116 (H) Calcium Latest Ref Range: 8.5 - 10.5 mg/dL 9.0 Magnesium Latest Ref Range: 0.69 - 1.07 mmol/L 0.83 Hemoglobin A1C Latest Ref Range: 4.3 - 5.6 % 5.4 Est Avg Gluc Latest Units: mg/dL 108 Phosphorus Latest Ref Range: 2.5 - 4.5 mg/dL 3.1 Uric Acid Latest Ref Range: 3.5 - 8.5 mg/dL 7.7 Total Protein Latest Ref Range: 6.1 - 8.0 gm/dL 7.4 Albumin Latest Ref Range: 3.2 - 5.2 gm/dL 4.1 Total Bilirubin Latest Ref Range: 0.2 - 1.3 mg/dL 0.9 Alk Phos Latest Ref Range: 40 - 120 unit/L 151 (H) AST Latest Ref Range: 0 - 39 unit/L 34 ALT Latest Ref Range: 0 - 55 unit/L 28 Amylase Latest Ref Range: 28 - 100 unit/L 55 Lipase Latest Ref Range: 0 - 60 unit/L 24 25-OH Vit D Total Latest Ref Range: 30 - 100 ng/mL 22 (L) Vit D 1,25 Latest Ref Range: 18 - 64 pg/mL 59 U Protein Ran Latest Ref Range: 0 - 12 mg/dL 12 Chol, Total Latest Ref Range: <=239 mg/dL 151 HDL Latest Ref Range: >=40 mg/dL 36 (L) Chol/HDL Ratio Latest Units: ratio 4.2 Triglycerides Latest Ref Range: <=199 mg/dL 110 LDL Cholesterol Latest Ref Range: <=190 mg/dL 93 Lipid Interpretation Unknown See Note Tacrolimus Lvl Latest Units: ng/mL 8.3 PTH Latest Ref Range: 15 - 65 pg/mL 85 (H) Color UA Latest Ref Range: Yellow Yellow Appearance UA Latest Ref Range: Clear Clear Spec [place] UA Latest Ref Range: 1.002 - 1.030 1.015 pH UA Latest Ref Range: 5.0 - 8.0 6.0 Protein UA Latest Ref Range: Negative mg/dL Negative Glucose UA Latest Ref Range: Negative mg/dL Negative Ketones UA Latest Ref Range: Negative mg/dL Negative Bilirubin UA Latest Ref Range: Negative mg/dL Negative Urobilinogen UA Latest Ref Range: Normal mg/dL >=4.0 (A) Blood UA Latest Ref Range: Negative mg/dL Negative Leukocytes UA Latest Ref Range: Negative mcL Negative Nitrite UA Latest Ref Range: Negative Negative Culture Reflexed Unknown No Prot/Cre Ratio Latest Units: ratio <0.1 Ca/Cre Ratio Latest Units: ratio 0.01 U Calcium Latest Units: mg/dL 1.9 U Creatinine Latest Units: mg/dL 164 164 U Phosphorus Latest Units: mg/dL 45.8 BKV Blood Result Unknown Not Detected BKV Blood Interp Unknown BK Virus Plasma R... Impression/ Plan: ? Transplant Status S/p panc transplant 4??years out, stable graft function s/p pleurodynia/coxsackie viral infection inDec 2016 ? Depression meds: on??Effexor ? Immunosuppression Dual therapy Prograf 2+2 Cellcept 500 bid ? PO4/Mg On Mg supplement daily ? Hypertension Stable ? He needs a DSE (last one 2012, was due in 2016) and colo (last one 2014) ? 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
--- OUTSIDE RECORDS SUMMARY | 2022-03-13 18:27 | XMS_ITS | Encounter Summary ---
:1965 Author Organization [facility] [place] [address] Care Team Providers Name Role Phone Anna Mullen MD Primary Care Provider Encounter Details Date Type Department Care Team Description 09/15/2017 Laboratory Appointment Lab 3L [facility] Pancreas replaced by [facility] [place] [id number] Social History Tobacco Use Types Packs/Day Years [...] Procedure Name Priority Date/Time Associated Comments Diagnosis PTH STAT 09/15/2017 9:11 AM Pancreas replaced Resu lts for this EST by transplant procedure are in the results section. CMP W/FASTING GLUCOSE STAT 09/15/2017 9:11 AM Pancreas repl aced Results for this EST by transplant procedure are in the results section. BKV QUANT BLOOD STAT 09/15/2017 9:11 AM Pancreas replaced R esults for this EST by transplant procedure are in the results section. HEMOGRAM STAT 09/15/2017 9:11 AM Pancreas replaced Resu lts for this EST by transplant procedure are in the results section. DIFFERENTIAL, STAT 09/15/2017 9:11 AM Pancreas replaced Res ults for this AUTOMATED EST by transplant procedure are in the results section. GOLD TUBE HOLD STAT 09/15/2017 9:11 AM Pancreas replaced Re sults for this EST by transplant procedure are in the results section. LAVENDER TUBE HOLD STAT 09/15/2017 9:11 AM Pancreas replace d Results for this EST by transplant procedure are in the results section. TACROLIMUS LEVEL STAT 09/15/2017 9:11 AM Pancreas replaced Results for this EST by transplant procedure are in the results section. 1,25-DIHYDROXYCHOLECA STAT 09/15/2017 9:11 AM Pancreas repl aced Results for this LCIFEROL EST by transplant procedure are in the results section. VITAMIN D, 25-HYDROXY STAT 09/15/2017 9:11 AM Pancreas repl aced Results for this EST by transplant procedure are in the results section. RETICULOCYTE COUNT STAT 09/15/2017 9:11 AM Pancreas replace d Results for this EST by transplant procedure are in the results section. CBC (WITH DIFF) STAT 09/15/2017 9:11 AM Pancreas replaced EST by transplant URIC ACID STAT 09/15/2017 9:11 AM Pancreas replaced Resu lts for this EST by transplant procedure are in the results section. PHOSPHORUS STAT 09/15/2017 9:11 AM Pancreas replaced Resu lts for this EST by transplant procedure are in the results section. MAGNESIUM STAT 09/15/2017 9:11 AM Pancreas replaced Resu lts for this EST by transplant procedure are in the results section. LIPASE STAT 09/15/2017 9:11 AM Pancreas replaced Resu lts for this EST by transplant procedure are in the results section. HEMOGLOBIN A1C STAT 09/15/2017 9:11 AM Pancreas replaced Re sults for this EST by transplant procedure are in the results section. AMYLASE STAT 09/15/2017 9:11 AM Pancreas replaced Resu lts for this EST by transplant procedure are in the results section. LIPID PANEL (REFLEX STAT 09/15/2017 9:11 AM Pancreas replac ed Results for this DIRECT LDL) EST by transplant procedure are in the results section. CALCIUM CREATININE STAT 09/15/2017 9:08 AM Pancreas replace d Results for this RATIO, RANDOM URINE EST by transplant procedu re are in the results section. PROTEIN/CREATININE STAT 09/15/2017 9:08 AM Pancreas replace d Results for this RATIO, URINE EST by transplant procedure are in the results section. PHOSPHORUS, URINE, STAT 09/15/2017 9:08 AM Pancreas replace d Results for this RANDOM EST by transplant procedure are in the results section. URINALYSIS WITH STAT 09/15/2017 9:08 AM Pancreas replaced R esults for this REFLEX CULTURE EST by transplant procedure ar e in the results section. documented in this encounter Results (ABNORMAL) Differential, Automated (09/15/2017 9:11 AM EST) [facility] Method Time Signature Neutrophils % 38.6 % [facility] Neutr Abs (ANC) 2.69 1.70 - [facility] 6.10 [facility] x10(3)/[facility] LABORATORY Lymphocytes % 47.2 % [facility] Lymphocytes Abs 3.3 (H) 0.9 - 3.2 [facility] x10(3)/[facility] LABORATORY Monocytes % 9.8 % [facility] Monocyte Abs 0.7 0.3 - 0.9 [facility] x10(3)/[facility] LABORATORY Eosinophils % 3.6 % [facility] Eosinophils Abs 0.2 0.0 - 0.4 [facility] x10(3)/[facility] LABORATORY Basophils % 0.4 % [facility] Basophils Abs 0.0 0.0 - 0.1 [facility] x10(3)/[facility] LABORATORY Immature Gran % 0.40 % [facility] Comment: Immature granulocytes(IG's)percentage an d absolute count will include metamyelocytes, myelocytes, and promyelo cytes. Blood smears from CBCs yielding IG's will be scanned manually for concor dance. If this scan disagrees with the automated IG or if promyelocytes are not ed, a manual differential will be performed. Kym Gran Abs 0.03 0.00 - 0.04 x10(3)/[facility] Y [facility]ORY Specimen Anatomical Collection Method Collection Time Receive d Time (Source) Location / / Volume Laterality Blood specimen 09/15/2017 9:11 AM 018 9:22 (specimen) EST AM EST Resulting Agency Comment Spec In Lab Eriberto Melgar MD HEMATOLOGY ORDERABLES Performing Organization Address City/State/[place] [address] (ABNORMAL) Hemogram (09/15/2017 9:11 AM EST) Analysis Performed At Patho logist Time Signature WBC 7.0 4.0 - 9.5 [facility] x10(3)/[facility] LABORATORY RBC 4.45 (L) 4.58 - [facility] [place] 5.54 [facility] x10(6)/[facility] LABORATORY Hemoglobin 13.0 (L) 13.7 - [facility] 16.5 gm/dL [facility] Hematocrit 38.4 (L) 40.5 - [facility] 48.5 % [facility] MCV 86.3 82.9 - [facility] 93.1 [facility] LABORATORY MCH 29.2 27.5 - [facility] 32.1 pg [facility] MCHC 33.9 32.0 - [facility] 35.7 gm/dL [facility] Platelets 255 145 - 357 [facility] x10(3)/[facility] LABORATORY RDWSD 41.1 36.0 - [facility] 45.0 [facility] LABORATORY RDWCV 13.2 11.4 - [facility] 13.8 % [facility] MPV 10.0 7.6 - 12.9 [facility] LABORATORY nRBC % Auto 0.0 % [facility] nRBC Abs Auto 0.000 0.000 - [facility] 0.000 [facility] x10(3)/[facility] LABORATORY Specimen Anatomical Collection Method Collection Time Receive d Time (Source) Location / / Volume Laterality Blood specimen 09/15/2017 9:11 AM 018 9:22 (specimen) EST AM EST Resulting Agency Comment Spec In Lab Eriberto Melgar MD HEMATOLOGY ORDERABLES Performing Organization Address City/State/[place] [address] Gold Tube HOLD (09/15/2017 9:11 AM EST) P athologist Signature Gold Hold Sample in [facility]. [facility] Specimen Anatomical Collection Method Collection Time Receive d Time (Source) Location / / Volume Laterality Blood specimen 09/15/2017 9:11 AM 018 9:23 (specimen) EST AM EST Eriberto Melgar MD CHEMISTRY ORDERABLES Performing Organization Address [facility] Phon e Number [address] Lavender Tube HOLD (09/15/2017 9:11 AM EST) Patholo gist Method Time Signature Lavender Hold Sample in [facility]. [facility] Specimen Anatomical Collection Method Collection Time Receive d Time (Source) Location / / Volume Laterality Blood specimen 09/15/2017 9:11 AM 018 9:22 (specimen) EST AM EST Eriberto Melgar MD HEMATOLOGY ORDERABLES Performing Organization Address [facility] [place] [address] (ABNORMAL) Vitamin D, 25-Hydroxy (09/15/2017 9:11 AM EST) P athologist Signature 25-OH Vit D 22 (L) 30 - 100 [facility] Total ng/mL [facility] Comment: Deficient <10 ng/mL Insufficient 10 to 29 ng/mL Sufficient 30 to 100 ng/mL Potential Intoxication >100 ng/mL According to the [place] National Osteoporosi s Foundation, Vitamin D concentrations >30 ng/mL are sufficient to protect bone health. ??The National Kidney Foundation has similarly stated that pat ients with Vitamin D concentrations <30ng/mL should be considered to be insu fficient or deficient. http://YourTeamOnline.com/nkf-guidelines http://YourTeamOnline.com/nejm-VitD The [employer] Vitamin D Immunoassay detec ts both 25-OH Vitamin D2 and 25-OH Vitamin D3, but only a total Vitamin D c oncentration is reported. Specimen Anatomical Collection Method Collection Time Receive d Time (Source) Location / / Volume Laterality Blood specimen 09/15/2017 9:11 AM 018 1:42 (specimen) EST PM EST Resulting Agency Comment Spec In Lab Eriberto Melgar MD CHEMISTRY ORDERABLES Performing Organization Address City/State/ZIP Code Phon e Number [address] Uric acid (09/15/2017 9:11 AM EST) P athologist Signature Uric Acid 7.7 3.5 - 8.5 [facility] mg/dL [facility] Specimen Anatomical Collection Method Collection Time Receive d Time (Source) Location / / Volume Laterality Blood specimen 09/15/2017 9:11 AM 018 9:23 (specimen) EST AM EST Resulting Agency Comment Spec In Lab Eriberto Melgar MD CHEMISTRY ORDERABLES Performing Organization Address City/[facility]/ZIP Code Phon e Number [address] Tacrolimus level (09/15/2017 9:11 AM EST) athologist [facility] Tacrolimus Lvl 8.3 ng/mL [facility] Comment: Trough therapeutic: ??5-15 ng/mL Performed by ultra-performance liquid ch romatography tandem mass spectrometry (UPLCMS/MS). This test was developed and its performa nce characteristics determined by [facility]. It has not been cleared or approved by the FDA. The laboratory is regulated under CLIA a s qualified to perform high-complexity testing. This test is used for clinical purposes. It should not be regarded as investigational or for research. Specimen Anatomical Collection Method Collection Time Receive d Time (Source) Location / / Volume Laterality Blood specimen 09/15/2017 9:11 AM 018 (specimen) EST 10:06 AM EST Resulting Agency Comment Spec In Lab Eriberto Melgar MD CHEMISTRY ORDERABLES Performing Organization Address City/[facility]/ZIP Code Phon e Number [address] Reticulocyte Count (09/15/2017 9:11 AM EST) P athologist Signature Retic Ct % 1.0 0.7 - 2.6 [facility] LABORATORY Retic Ct Abs 0.040 0.030 - [facility] 0.120 [facility] x10(6)/[facility] LABORATORY Immature Retic% 4.9 0.0 - 15.6 [facility] K % [facility] Reticulated Hgb 34.1 31.3 - [facility] 40.2 pg [facility] Specimen Anatomical Collection Method Collection Time Receive d Time (Source) Location / / Volume Laterality Blood specimen 09/15/2017 9:11 AM 018 9:22 (specimen) EST AM EST Resulting Agency Comment Spec In Lab Eriberto Melgar MD HEMATOLOGY ORDERABLES Performing Organization Address City/[facility]/ZIP Code Phon e Number [address] (ABNORMAL) PTH (09/15/2017 9:11 AM EST) P athologist Signature PTH 85 (H) 15 - 65 [facility] pg/mL [facility] Specimen Anatomical Collection Method Collection Time Receive d Time (Source) Location / / Volume Laterality Blood specimen 09/15/2017 9:11 AM 018 9:22 (specimen) EST AM EST Resulting Agency Comment Spec In Lab Eriberto Melgar MD CHEMISTRY ORDERABLES Performing Organization Address City/State/ZIP [place] [address] Phosphorus (09/15/2017 9:11 AM EST) P athologist Signature Phosphorus 3.1 2.5 - 4.5 [facility] mg/dL [facility] Specimen Anatomical Collection Method Collection Time Receive d Time (Source) Location / / Volume Laterality Blood specimen 09/15/2017 9:11 AM 018 9:23 (specimen) EST AM EST Resulting Agency Comment Spec In Lab Eriberto Melgar MD CHEMISTRY ORDERABLES Performing Organization Address City/[facility]/ZIP Code Phon e Number [address] BKV Quant Blood (09/15/2017 9:11 AM EST) Component Value Ref Test Analysis Performed At Patholo gist Range Method Time Signature BKV Blood Not Detected [facility] LABORATORY BKV Blood BK Virus Plasma Result Interpretation [facility] Result: BK Virus not detected HOSPITAL Specimen type: plasma LABORATO RY Assay Range: 2.83-8.83 log copies/mL (6.8x10^2 - 6.8x10^8 co pies/mL) Methods: Quantitative real-time polymerase chain react ion (PCR) of viral DNA isolated from plasma was performed using [employer] (formerly, [employer]) BKV analyte-specific reagents and the [employer] Sensobi 7 500 FAST Real-Time PCR System. In addition, the PCR product sequence is confirmed u sing physical properties (melting curve analysis). Limitations and Disclaimers: Although un likely, rare [...] acteristics determined by the Clinical Genomics and Advanc ed Technology (CGAT) Laboratory at [facility]. It has not been cleared or approved by the FDA. The laboratory is regulated under CLIA as qualified to perform high-complexity testing. This charles t is used for clinical purposes. It should not be regarded as investigational or fo r research. Comment: [VERIFIED DATE]09.22.17 Verified By:Eriberto Johnson (Electronic Signature) Specimen Anatomical Collection Method Collection Time Receive d Time (Source) Location / / Volume Laterality Blood specimen 09/15/2017 9:11 AM 018 (specimen) EST 12:26 PM EST Resulting Agency Comment Spec In Lab Eriberto Melgar MD IMMUNOLOGY ORDERABLES Performing Organization Address City/State/ZIP Code Phon e Number [address] Magnesium (09/15/2017 9:11 AM EST) P athologist Signature Magnesium 0.83 0.69 - 1.07 [facility] mmol/L [facility] Specimen Anatomical Collection Method Collection Time Receive d Time (Source) Location / / Volume Laterality Blood specimen 09/15/2017 9:11 AM 018 9:23 (specimen) EST AM EST Resulting Agency Comment Spec In Lab Eriberto Melgar MD CHEMISTRY ORDERABLES Performing Organization Address City/[facility]/ZIP Code Phon e Number [address] (ABNORMAL) Lipid Panel (09/15/2017 9:11 AM EST) [facility] Method Time Signature Chol, Total 151 <=239 [place] mg/dL [facility]ORATORY Triglycerides 110 <=199 [facility] mg/dL [facility] LAB[facility]ORY HDL 36 (L) >=40 [place] mg/dL [facility] LABOR[facility]ORY LDL Cholesterol 93 <=190 [facility] mg/dL [facility] LABORATORY Chol/HDL Ratio 4.2 ratio [facility] Lipid See Note [place] Interpretation [facility] Comment: Lipid management should be guided by a p atient? s ASCVD risk, goals and preferences. ACC/AHA Guidelines recommend high intens ity statin if clinical ASCVD or LDL greater than or equal to 190 mg/dL. http://YourTeamOnline.[employer]/PST-MIS-Vihvepxku Adults aged 40-75 with LDL 70-189 mg/dL should have their 10 year ASCVD risk estimated with the ACC/AHA ASCVD risk es timator http://tools.acc.org/NWKBR-Xowx-Qckxmrls r/ Statin should be discussed if risk [...] Location / / Volume Laterality Blood specimen 09/15/2017 9:11 AM 018 9:23 (specimen) EST AM EST Resulting Agency Comment Spec In Lab Eriberto Melgar MD CHEMISTRY ORDERABLES Performing Organization Address City/State/ZIP Code Phon e Number [place] [phone] [address] LAB[address] Lipase (09/15/2017 9:11 AM EST) athologist Signature Lipase 24 0 - 60 [facility] unit/L [facility] Specimen Anatomical Collection Method Collection Time Receive d Time (Source) Location / / Volume Laterality Blood specimen 09/15/2017 9:11 AM 018 9:23 (specimen) EST AM EST Resulting Agency Comment Spec In Lab Eriberto Melgar MD CHEMISTRY ORDERABLES Performing Organization Address City/State/[place] [address] Hemoglobin A1c (09/15/2017 9:11 AM EST) athologist Signature Hemoglobin A1C 5.4 4.3 - 5.6 [facility] Comment: Reference Range: 4.3 - 5.6% 5.7 - 6.4% - Increased Risk of Developin g Diabetes Mellitus >=6.5% - Consistent with diagnosis of Di abetes Mellitus In the absence of hyperglycemia (i.e. pl asma glucose > 200 mg/dL) or classic symptoms of hyperglycemia a repeat measu rement of HbA1c should be performed on a separate sample to confirm the diagnos is. Diagnosis and Classification of Diabetes Mellitus, Diabetes Care 2013; 36: Suppl. 1, S67-74 Est Avg Gluc 108 mg/dL [facility] Comment: eAG equivalents for HbA1c percentages: HbA1c(%) ?eAG(mg/dL) 6.0 ?126 6.5 ?140 7.0 ?154 7.5 ?169 8.0 ?183 8.5 ?197 9.0 ?212 9.5 ?226 10.0 ? 240 Limitations: The eAG calculation has not been validated on women, individuals below 18 years old and above 70 years old, and individuals with hemoglobinopathies. Additional resources are available on health system ADA website. Edinson GRISSOM, Nathaniel J, Ari R, et al. ??Tr anslating the A1C assay into estimated average glucose values. ??Diabetes Care 2008:31(8):6635-0586. Specimen Anatomical Collection Method Collection Time Receive d Time (Source) Location / / Volume Laterality Blood specimen 09/15/2017 9:11 AM 018 9:22 (specimen) EST AM EST Resulting Agency Comment Spec In Lab Eriberto Melgar MD CHEMISTRY ORDERABLES Performing Organization Address City/State/ZIP Code Phon e Number [place] [phone]OS[address] (ABNORMAL) CMP w/fasting Glucose (09/15/2017 9:11 AM EST) athologist Signature Glucose 116 (H) 65 - 99 [facility] Fasting mg/dL [facility] Comment: ?Fasting* Glucose Interpretive C riteria Normal ?65-99 mg/dL Impaired Fasting glucose ?100-125 mg/dL Consistent with Diabetes Mellitus ? >or= 126 mg/dL *Fasting is defined as no caloric intake for at least 8 hours In the absence of unequivocal hypergly cemia a plasma glucose value of >or= 126 mg/dL should be repeated on a subseq u day. Diagnosis and Classification of Diabetes Mellitus, Position Statement from the [place] [employer]. ??Diabete s Care, Volume 33, Supplement 1, Aug 2009 BUN 15 10 - 20 mg/dL [facility] Creatinine 1.17 0.80 - 1.50 mg/dL [facility] Sodium 134 (L) 135 - 145 mmol/L [facility] Potassium 4.5 3.5 - 5.0 mmol/L [facility] Comment: Please note: ??Patients with WBC >100,00 0 may have falsely elevated Potassium levels. ??For accurate Potassium quantif ication in these patients send serum separator tube (gold top) for subsequent determinations. ??Contact the Clinical Chemistry Laboratory if there are any qu estions. Chloride 97 (L) 98 - 107 mmol/L [facility] CO2 27 22 - 31 mmol/L [facility] Anion Gap 10 5 - 15 mmol/L [facility] Calcium 9.0 8.5 - 10.5 mg/dL [facility] Total Protein 7.4 6.1 - 8.0 gm/dL [facility] Albumin 4.1 3.2 - 5.2 gm/dL [facility] AST 34 0 - 39 unit/L [facility] ALT 28 0 - 55 unit/L [facility] Alk Phos 151 (H) 40 - 120 unit/L [facility] Total Bilirubin 0.9 0.2 - 1.3 mg/dL [facility] Estimated GFR >60 >=60 [facility] Comment: The reported eGFR should be multiplied b y 1.2 for patients. The MDRD is not an appropriate measure o f renal function for patients with body mass extremes or in patients with acute kidney failure. http://[employer]/DHnkdep http://[employer]/DHMCnkf Specimen Anatomical Collection Method Collection Time Receive d Time (Source) Location / / Volume Laterality Blood specimen 09/15/2017 9:11 AM 018 9:23 (specimen) EST AM EST Resulting Agency Comment Spec In Lab Eriberto Melgar MD CHEMISTRY ORDERABLES Performing Organization Address City/State/[place] [address] Amylase (09/15/2017 9:11 AM EST) P athologist Signature Amylase 55 28 - 100 [facility] unit/L [facility] Specimen Anatomical Collection Method Collection Time Receive d Time (Source) Location / / Volume Laterality Blood specimen 09/15/2017 9:11 AM 018 9:23 (specimen) EST AM EST Resulting Agency Comment Spec In Lab Eriberto Melgar MD CHEMISTRY ORDERABLES Performing Organization Address City/State/ZIP Code Phon e Number [address] 1,25-dihydroxycholecalciferol (09/15/2017 9:11 AM EST) P athologist Signature Vit D 59 18 - 64 [facility] pg/mL [facility] Comment: ADDITIONAL INFORMATIO N This test was developed and its performa nce characteristics determined by [facility] in a manner co nsistent with CLIA requirements. This test has not been gene ared or approved by the U.S. Food and Drug Administration. Test Performed by: [facility] [address] [place] [id number] Specimen Anatomical Collection Method Collection Time Receive d Time (Source) Location / / Volume Laterality Blood specimen 09/15/2017 9:11 AM 018 1:38 (specimen) EST PM EST Resulting Agency Comment Spec In Lab Eriberto Melgar MD CHEMISTRY ORDERABLES Performing Organization Address City/[facility]/ZIP [place] [address] (ABNORMAL) Urinalysis with reflex Culture (09/15/2017 9:08 AM EST) [facility] Method Time Signature Glucose UA Negative Negative [facility] [place] mg/dL [facility] Protein UA Negative Negative [facility] mg/dL [facility] Bilirubin UA Negative Negative [facility] mg/dL [facility] Comment: Clinical correlation required for positi ve Urine Bilirubin results as false positive may occur with some drugs and d rug related products. If a false positive is suspected a serum total bili sinha should be considered if clinically indicated. Urobilinogen UA >=4.0 (A) Normal mg/dL [facility] pH UA 6.0 5.0 - 8.0 [facility] Blood UA Negative Negative mg/dL [facility] Ketones UA Negative Negative mg/dL [facility] Nitrite UA Negative Negative [facility] Leukocytes UA Negative Negative [facility] Appearance UA Clear Clear [facility] Spec [place] UA 1.015 1.002 - 1.030 [facility] Color UA Yellow Yellow [facility] Culture Reflexed No [facility] Specimen (Source) Anatomical Collection Method Collection Time Re ceived Time Location / / Volume Laterality Urine specimen 09/15/2017 9:08 09/15/2017 9:16 obtained by clean AM EST AM EST catch procedure (specimen) Resulting Agency Comment Spec In Lab Eriberto Melgar MD URINE ORDERABLES Performing Organization Address City/[facility]/ZIP Code Phon e Number [address] Protein/Creatinine Ratio, urine (09/15/2017 9:08 AM EST) P athologist Signature U Creatinine 164 mg/dL [facility] U Protein Ran 12 0 - 12 [facility] mg/dL [facility] Prot/Cre Ratio <0.1 ratio [facility] Specimen Anatomical Collection Method Collection Time Receive d Time (Source) Location / / Volume Laterality Urine specimen 09/15/2017 9:08 AM 018 9:16 (specimen) EST AM EST Resulting Agency Comment Spec In Lab Eriberto Melgar MD URINE ORDERABLES Performing Organization Address City/[facility]/ZIP Code Phon e Number [address] Phosphorus, urine, random (09/15/2017 9:08 AM EST) P athologist Signature U Phosphorus 45.8 mg/dL [facility] Specimen Anatomical Collection Method Collection Time Receive d Time (Source) Location / / Volume Laterality Urine specimen 09/15/2017 9:08 AM 018 9:16 (specimen) EST AM EST Resulting Agency Comment Spec In Lab Eriberto Melgar MD URINE ORDERABLES Performing Organization Address City/State/ZIP [place] [address] Calcium Creatinine Ratio, random urine (09/15/2017 9:08 AM EST) P athologist Signature U Calcium 1.9 mg/dL [facility] U Creatinine 164 mg/dL [facility] Ca/Cre Ratio 0.01 ratio [facility] Specimen Anatomical Collection Method Collection Time Receive d Time (Source) Location / / Volume Laterality Urine specimen 09/15/2017 9:08 AM 018 9:16 (specimen) EST AM EST Resulting Agency Comment Spec In Lab Eriberto Melgar MD URINE ORDERABLES Performing Organization Address City/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
--- OUTSIDE RECORDS SUMMARY | 2022-03-13 18:27 | XMS_ITS | Encounter Summary ---
:1965 Author Organization [facility] [place] [address] Care Team Providers Name Role Phone Anna Mullen MD Primary Care Provider Reason for Visit Reason Comments Pancreas Transplant Follow-up Immunotherapy Encounter Details Date Type Department Care Team Description 03/11/2018 Office Visit Solid Organ Sayda Melgar replac ed by transplant; [place] [facility] [place] Eriberto Stoddard MD Immunosuppression; [facility] MEDICAL Aftercare following organ transplant; [facility] Prophylactic immunotherapy [place], [place] TRANSPLANT [id number] SURGERY [phone] [place], [place] [address] Social History Tobacco Use Types [...] Sign Reading Time Taken Comments Blood Pressure 124/78 03/11/2018 10:40 AM EDT Pulse 84 03/11/2018 10:40 AM EDT Temperature 36.7 ??C (98 ??F) 03/11/2018 10:40 AM EDT Respiratory Rate - - Oxygen Saturation 100% 03/11/2018 10:40 AM EDT Inhaled Oxygen Concentration - - Weight 93.6 kg (206 lb 6.4 oz) 03/11/2018 10:40 AM EDT Height - - Body Mass Index 27.99 03/11/2018 8:30 AM EDT documented in this encounter Progress Notes Nicky Jaramillo CMA - 03/11/2018 10:40 AM EDT Confirmed patient's last name and Reviewed tobacco use, all allergies and meds, dose and frequency. No changes, missed prograf sat PM and sun AM; 2 months ago due to delivery issue. No additional OTC meds, nutritional or herbal supplements. Reviewed education tab. Reviewed immunizations; UTD C/o BG 150's x 3 days, 86-164 C/o right hand degeneration x 2 months 05/10 in am, better through the day, worse at night; joint pain. Emili Ugalde MD - 03/11/2018 10:40 AM EDT [facility] Transplant Medicine Follow Up Reese Shukla [id number] Transplant ID: Date: 03/11/18 Patient: Reese Shukla Transplant Date: 08/28/13 Organ(s) Pancreas Cahto organ diagnosis: Diabetes Mellitus - Type I (Pancreas) Days from Transplant: [id number] History of Present Illness: Mr. Reese Shukla is a 52 y.o. years old male who is s/p Pancreas transplant on 08/28/2013 (Pancreas). His post-op course was un eventful .Came here for a regular follow up viisIt Interim Hx: He denied any recent hospitalizations after coxsackie viral infection in jul- .Denied any residual cough or chest pain during this visit.Been compliant with his immunosuppressive medications andfluid intake .Have chronic problems with his gastroparesis but voiced no new complaints.He reports in creased muscle weakness with atrophy in his right hand which initially started as knuckle pain in middle finger .Currently he is experiencing more difficulty in doing fine motor activities.His sugars are well controlled and compliant with his HCM testing.He had his stress test today before the visit. Healthcare maintenance for a transplant recipient: Immunizations (no live virus or modified bacterial vaccines) [x] Prevnar 13 once in a lifetime [x] Pneumovax 23 every 5 years [x] Tdap every 10 years [x] Annual flu shot [x] Annual PCP exam:Due in [x] Annual YULISSA and PSA for males [...] diabetics, every 5 for non diabetics [] Cahto kidney ultrasound looking for renal cell CA, every 5 years post transplant [] Bone density assessment every 9-12 years post transplant [x] Annual fasting lipid profile [x] Annual PTH-Vit D3 assessment until normalized [x] Annual 24 hour timed urine for creatinine, protein, calcium, phosphate, magnesium ROS: Review of Systems - Denies fevers, chills, nausea, vomiting, diarrhea, abd pain, chest pain, sob, graft tenderness,. Allother review of systems were neither positive or negative. Routine Health Maintenance: Health Maintenance Topic Date [...] Tdap adult Completed ??? HIV screen Completed Problem List: Patient Active Problem List Diagnosis [...] Fever R50.9 ??? Coxsackie virus infection B34.1 Medications: Your Medications These changes are accurate as of 03/11/18 12:09 PM. If you have any questions, ask your nurse or doctor. New Medications Dose Details valACYclovir 500 mg Tab Commonly known as: VALTREX Take 1 tablet by mouth 3 times daily for 30 days. Recurrent herpes labialis Started by: Eriberto Melgar MD 500 mg Quantity: 90 tablet Refills: 3 Continued [...] by mouth daily. 60 mg Refills: 0 gabapentin 300 mg Cap Commonly known as: NEURONTIN Take 900 mg by mouth nightly. 100 mg in the morning and 900 mg at night. 900 mg Refills: 0 guaiFENesin 20 mg/mL Liqd Commonly known as: ROBITUSSIN Take 10 mLs by mouth every 4 hours as needed for Cough. 200 mg Quantity: 120 mL Refills: 0 levothyroxine 150 mcg Tab Commonly known as: SYNTHROID Take 150 mcg by mouth daily. 150 mcg Refills: 0 lisinopril 20 mg Tab Commonly known as: PRINIVIL;ZESTRIL Take 1.5 tablets by mouth daily. 30 mg Quantity: 90 tablet Refills: 3 Magnesium Gluconate 27 mg (500 mg) Tab [...] daily. Pancreas transplant 08/28/2013. ICD code Z94.83 Generic drug: tacrolimus Quantity: 120 capsule Refills: [...] EVERY EVENING Quantity: 90 tablet Refills: 3 Allergies / ADRs: Allergies Allergen Reactions ??? Nexium [Esomeprazole Magnesium] Diarrhea Any acid reflux medication causes severe diarrhea ??? Prilosec [Omeprazole Magnesium] Diarrhea ??? Reglan [Metoclopramide Hcl] TD ??? Simvastatin Immunizations: Immunization History Administered Date(s) Administered ??? Influenza PF, Split 05/31/2014, 05/19/2016 ??? Influenza Vaccine w/Preservative, Split 05/22/2012 ??? Influenza Vaccine, Whole 06/11/2009 ??? Pneumococcal Conjugate (13 Valent) 02/22/2016 ??? Pneumococcal Polyvalent 23 08/31/2003, 05/09/2009, 06/14/2014 ??? Tdap Vaccine 03/05/2011 Past Medical History: Past Medical History: Diagnosis [...] DIAGNOSTIC performed by Anna Rapp MD at [facility] ENDOSCOPY ??? PRO TRANSPLANT ALLOGRAFT PANCREAS 08/28/2013 @PANCREATIC TRANSPLANT performed by Iraj Keller MD at [facility] MAIN OR ??? PRO TRANSPLANT, PREP DONOR PANCREAS 08/28/2013 @PREPARATION CADAVERIC PANCREAS, STANDARD performed by Iraj Keller MD at [facility] MAIN OR ??? PRO UNLISTED PROCEDURE, MUSCULOSKELETAL SYSTEM, GENERAL 10 years carpel tunnel ??? PRO UPPER GI ENDOSCOPY, BIOPSY 12/31/2011 UPPER GASTROINTESTINAL ENDOSCOPY,WITH BIOPSY SINGLE OR MULTIPLE performed by CLAYTON BHAKTA at [facility] ENDOSCOPY ??? PRO UPPER GI ENDOSCOPY, BIOPSY N/A 08/15/2015 EGD WITH BIOPSY performed by Clayton Bhakta MD at [facility] ENDOSCOPY ??? SHOULDER SURGERY ??? UPPER GI ENDOSCOPY, EXAM 12/31/2011 UPPER GI ENDOSCOPY performed by CLAYTON BHAKTA at [facility] ENDOSCOPY Social History: Social History Social History ??? 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 Lives with PHYSICAL EXAM: Most Recent Vitals: 03/11/18 1040 BP: 124/78 Pulse: 84 Temp: 36.7 ??C (98 ??F) SpO2: 100% PainSc: 0 - No pain Gen - AAO x 3 in NAD [...] No cyanosis. No dependent edema. Labs/ Imaging: Recent Results (from the past 24 hour(s)) Amylase Result Value Ref Range Amylase 63 28 - 100 unit/L Cholesterol, total Result Value Ref Range Chol, Total 150 mg/dL Lipid Interpretation See Note Comprehensive metabolic panel (non-fasting) Result Value Ref Range Glucose Lvl 108 65 - 199 mg/dL BUN 20 10 - 20 mg/dL Creatinine 1.14 0.80 - 1.50 mg/dL Sodium 131 (L) 135 - 145 mmol/L Potassium 4.7 3.5 - 5.0 mmol/L Chloride 93 (L) 98 - 107 mmol/L CO2 26 22 - 31 mmol/L Anion Gap 12 5 - 15 mmol/L Calcium 9.7 8.5 - 10.5 mg/dL Total Protein 7.9 6.1 - 8.0 gm/dL Albumin 4.6 3.2 - 5.2 gm/dL AST 26 0 - 39 unit/L ALT 26 0 - 55 unit/L Alk Phos 107 40 - 120 unit/L Total Bilirubin 0.9 0.2 - 1.3 mg/dL eGFR 75 >=60 mL/min/1.73 m?? eGFR 86 >=60 mL/min/1.73 m?? Lipase Result Value Ref Range Lipase 21 0 - 60 unit/L Magnesium Result Value Ref Range Magnesium 0.71 0.69 - 1.07 mmol/L Phosphorus Result Value Ref Range Phosphorus 3.2 2.5 - 4.5 mg/dL Reticulocyte Count Result Value Ref Range Retic Ct % 1.2 0.7 - 2.6 % Retic Ct Abs 0.060 0.030 - 0.120 x10(6)/mcL Immature Retic% 3.6 0.0 - 15.6 % Reticulated Hgb 40.3 (H) 31.3 - 40.2 pg Uric acid Result Value Ref Range Uric Acid 7.5 3.5 - 8.5 mg/dL Lavender Tube HOLD Result Value Ref Range Lavender Hold Sample in lab. Gold Tube HOLD Result Value Ref Range Gold Hold Sample in lab. Hemogram Result Value Ref Range WBC 7.7 4.0 - 9.5 x10(3)/mcL RBC 4.77 4.58 - 5.54 x10(6)/mcL Hemoglobin 14.2 13.7 - 16.5 gm/dL Hematocrit 41.5 40.5 - 48.5 % MCV 87.0 82.9 - 93.1 fL MCH 29.8 27.5 - 32.1 pg MCHC 34.2 32.0 - 35.7 gm/dL Platelets 238 145 - 357 x10(3)/mcL RDWSD 38.6 36.0 - 45.0 fL RDWCV 12.3 11.4 - 13.8 % MPV 9.6 7.6 - 12.9 fL nRBC % Auto 0.0 % nRBC Abs Auto 0.000 0.000 - 0.000 x10(3)/mcL Differential, Automated Result Value Ref Range Neutrophils % 40.1 % Neutr Abs (ANC) 3.09 1.70 - 6.10 x10(3)/mcL Lymphocytes % 49.0 % Lymphocytes Abs 3.8 (H) 0.9 - 3.2 x10(3)/mcL Monocytes % 7.5 % Monocyte Abs 0.6 0.3 - 0.9 x10(3)/mcL Eosinophils % 2.3 % Eosinophils Abs 0.2 0.0 - 0.4 x10(3)/mcL Basophils % 0.8 % Basophils Abs 0.1 0.0 - 0.1 x10(3)/mcL Immature Gran % 0.30 % Kym Gran Abs 0.02 0.00 - 0.04 x10(3)/mcL Protein/Creatinine Ratio, urine Result Value Ref Range U Creatinine 50 mg/dL U Protein Ran <6 0 - 12 mg/dL Prot/Cre Ratio <0.1 ratio Urinalysis with reflex Culture Result Value Ref Range Glucose UA Negative Negative mg/dL Protein UA Negative Negative mg/dL Bilirubin UA Negative Negative mg/dL Urobilinogen UA Normal Normal mg/dL pH UA 6.0 5.0 - 8.0 Blood UA Negative Negative mg/dL Ketones UA Negative Negative mg/dL Nitrite UA Negative Negative Leukocytes UA Negative Negative mcL Appearance UA Clear Clear Spec [place] UA 1.009 1.002 - 1.030 Color UA Yellow Yellow Culture Reflexed No Results for REESE SHUKLA ( ) as of 03/13/2018 07:13 Ref. Range 03/11/2018 08:01 Tacrolimus Lvl Latest Units: ng/mL 8.5 Results for REESE SHUKLA ( ) as of 03/13/2018 07:13 Ref. Range 03/11/2018 08:03 Prot/Cre Ratio Latest Units: ratio <0.1 Results for REESE SHUKLA ( ) as of 03/13/2018 07:13 Ref. Range 09/15/2017 09:11 Hemoglobin A1C Latest Ref Range: 4.3 - 5.6 % 5.4 Impression/ Plan: Reese Shukla is s/p Pancreas transplant. He was transplanted on 08/28/2013 (Pancreas). Mr. Reese Shukla is maintaining good graft function. He remains hydrated. . I also informed Mr. Reese Shukla to keep up with all recommended health maintenance visits, routine lab testing and screenings.He c/o muscle atrophy with pain in his right hand during this visit.Denied any new medications or hospitalizations. Transplant Status : His blood sugars are well controlled with fasting levels wnl.Have chronic gastroparesis symptoms which are stable and with no escalation of symptoms.His amylase and lipase are stable indicating good graft function. Immunosuppression Currently on Prograft -2 mg/2mg and Cellcept -500 mg BID .Prograft levels are in therapeutic range. PO4/Mg Calcium,magnesium and phos levels are wnl .Continue with magnesium gluconate supplementation. Hypertension Well controlled on lisinopril 30mg Infectious prophylaxis: Have cold sore on his upper lip -prescribed valtrex 500 Tid and recommended to take 7 days after lesion heals.Recommended to follow up with us if it does not heal. He may require valtrex prophylaxis. His recent Coxsackie viral infection is treated completely . HCM: Had a stress test this morning which showed no significant wall motion abn- dobutamine stress is normal. 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 Procrit Needed: Not indicated. All age appropriate and post-transplant, routine health maintenance tests and screenings are strongly recommended. These include the above (noting that the time intervals are different than that of thenon-transplant community,) but are not limited to, the for mentioned. Discussion with the patient and/or family concerned the following: ? Diagnostic results or recommended studies ? Prognosis; ? Risks and benefits of management; ? Instructions for management; ? Compliance with treatment; ? Risk factor reduction; ? Patient and family education. Total time 30 minutes > 50% in direct face to face membership counselor. Follow-up: [] 1 month [x] 6 months [] 1 year [] Other: Labs quarterly. Emili Ugalde MD I reviewed all of the above findings and assessment of Dr. Ugalde edited the above note to reflect my assessment and examination and formulated the recommendations which accurately reflect mine. 30 Min., >50% in direct face to face membership counselor. documented in this encounter Plan of Treatment Not on filedocumented as of this encounter Results Urinalysis with reflex Culture (03/11/2018 8:03 AM EDT) Patholo gist Method Time Signature Glucose UA Negative Negative [facility] mg/dL [facility] Protein UA Negative Negative [facility] mg/dL [facility] Bilirubin UA Negative Negative [facility] mg/dL [facility] Comment: Clinical correlation required for positi ve Urine Bilirubin results as false positive may occur with some drugs and d rug related products. If a false positive is suspected a serum total bili sinha should be considered if clinically indicated. Urobilinogen UA Normal Normal mg/dL [facility] pH UA 6.0 5.0 - 8.0 [facility] Blood UA Negative Negative mg/dL [facility] Ketones UA Negative Negative mg/dL [facility] Nitrite UA Negative Negative [facility] Leukocytes UA Negative Negative [facility] Appearance UA Clear Clear [facility] Spec [place] UA 1.009 1.002 - 1.030 [facility] Color UA Yellow Yellow [facility] Culture Reflexed No [facility] Specimen (Source) Anatomical Collection Method Collection Time Re ceived Time Location / / Volume Laterality Urine specimen 03/11/2018 8:03 03/11/2018 8:12 obtained by clean AM EDT AM EDT catch procedure (specimen) Resulting Agency Comment Spec In Lab Eriberto Melgar MD URINE ORDERABLES Performing Organization Address City/State/[place] [address] Protein/Creatinine Ratio, urine (03/11/2018 8:03 AM EDT) P athologist Signature U Creatinine 50 mg/dL [facility] U Protein Ran <6 0 - 12 [facility] mg/dL [facility] Prot/Cre Ratio <0.1 ratio [facility] Specimen Anatomical Collection Method Collection Time Receive d Time (Source) Location / / Volume Laterality Urine specimen 03/11/2018 8:03 AM 018 8:13 (specimen) EDT AM EDT Resulting Agency Comment Spec In Lab Eriberto Melgar MD URINE ORDERABLES Performing Organization Address City/State/ZIP Code Phon e Number [address] Gold Tube HOLD (03/11/2018 8:01 AM EDT) P athologist Signature Gold Hold Sample in [facility] LABORATORY Specimen Anatomical Collection Method Collection Time Receive d Time (Source) Location / / Volume Laterality Blood specimen 03/11/2018 8:01 AM 018 8:04 (specimen) EDT AM EDT Eriberto Melgar MD CHEMISTRY ORDERABLES Performing Organization Address City/[facility]/ZIP Code Phon e Number [address] Lavender Tube HOLD (03/11/2018 8:01 AM EDT) Patholo gist Method Time Signature Lavender Hold Sample in [facility] LABORATORY Specimen Anatomical Collection Method Collection Time Receive d Time (Source) Location / / Volume Laterality Blood specimen 03/11/2018 8:01 AM 018 8:04 (specimen) EDT AM EDT Eriberto Melgar MD HEMATOLOGY ORDERABLES Performing Organization Address City/[facility]/ZIP Code Phon e Number [address] Uric acid (03/11/2018 8:01 AM EDT) P athologist Signature Uric Acid 7.5 3.5 - 8.5 [facility] mg/dL [facility] Specimen Anatomical Collection Method Collection Time Receive d Time (Source) Location / / Volume Laterality Blood specimen 03/11/2018 8:01 AM 018 8:04 (specimen) EDT AM EDT Resulting Agency Comment Spec In Lab Eriberto Melgar MD CHEMISTRY ORDERABLES Performing Organization Address City/State/[place] [address] Tacrolimus level (03/11/2018 8:01 AM EDT) P athologist Signature Tacrolimus Lvl 8.5 ng/mL [facility] Comment: Trough therapeutic: ??5-15 ng/mL Performed by ultra-performance liquid ch romatography tandem mass spectrometry (UPLCMS/MS). This test was developed and its performa nce characteristics determined by [facility]. It has not been cleared or approved by the FDA. The laboratory is regulated under CLIA a s qualified to perform high-complexity testing. This test is used for clinical purposes. It should not be regarded as investigational or for research. Specimen Anatomical Collection Method Collection Time Receive d Time (Source) Location / / Volume Laterality Blood specimen 03/11/2018 8:01 AM 018 (specimen) EDT 10:53 AM EDT Resulting Agency Comment Spec In Lab Eriberto Melgar MD CHEMISTRY ORDERABLES Performing Organization Address City/[facility]/ZIP Code Phon e Number [address] (ABNORMAL) Reticulocyte Count (03/11/2018 8:01 AM EDT) Patholo gist Method Time Signature Retic Ct % 1.2 0.7 - 2.6 [facility] % [facility] Retic Ct Abs 0.060 0.030 - [facility] 0.120 [facility] x10(6)/[facility] L LABORATORY Immature Retic% 3.6 0.0 - [facility] 15.6 % [facility] Reticulated Hgb 40.3 (H) 31.3 - [facility] 40.2 pg [facility] Specimen Anatomical Collection Method Collection Time Receive d Time (Source) Location / / Volume Laterality Blood specimen 03/11/2018 8:01 AM 018 8:04 (specimen) EDT AM EDT Resulting Agency Comment Spec In Lab Eriberto Melgar MD HEMATOLOGY ORDERABLES Performing Organization Address City/[facility]/ZIP Code Phon e Number [address] Phosphorus (03/11/2018 8:01 AM EDT) P athologist Signature Phosphorus 3.2 2.5 - 4.5 [facility] mg/dL [facility] Specimen Anatomical Collection Method Collection Time Receive d Time (Source) Location / / Volume Laterality Blood specimen 03/11/2018 8:01 AM 018 8:04 (specimen) EDT AM EDT Resulting Agency Comment Spec In Lab Eriberto Melgar MD CHEMISTRY ORDERABLES Performing Organization Address City/[facility]/ZIP Code Phon e Number [address] Magnesium (03/11/2018 8:01 AM EDT) P athologist Signature Magnesium 0.71 0.69 - 1.07 [facility] mmol/L [facility] Specimen Anatomical Collection Method Collection Time Receive d Time (Source) Location / / Volume Laterality Blood specimen 03/11/2018 8:01 AM 018 8:04 (specimen) EDT AM EDT Resulting Agency Comment Spec In Lab Eriberto Melgar MD CHEMISTRY ORDERABLES Performing Organization Address City/[facility]/ZIP Code Phon e Number [address] Lipase (03/11/2018 8:01 AM EDT) P athologist Signature Lipase 21 0 - 60 [facility] Specimen Anatomical Collection Method Collection Time Receive d Time (Source) Location / / Volume Laterality Blood specimen 03/11/2018 8:01 AM 018 8:04 (specimen) EDT AM EDT Resulting Agency Comment Spec In Lab Eriberto Melgar MD CHEMISTRY ORDERABLES Performing Organization Address City/[facility]/[place] [address] (ABNORMAL) Comprehensive metabolic panel (non-fasting) (03/11/2018 8:01 AM EDT) P athologist Signature Glucose Lvl 108 65 - 199 [facility] mg/dL [facility] Comment: Diabetes: >=200 mg/dL plus symp toms BUN 20 10 - 20 mg/dL [facility] Creatinine 1.14 0.80 - 1.50 mg/dL [facility] Sodium 131 (L) 135 - 145 mmol/L [facility] Potassium 4.7 3.5 - 5.0 mmol/L [facility] Comment: Please note: ??Patients with WBC >100,00 0 may have falsely elevated Potassium levels. ??For accurate Potassium quantif ication in these patients send serum separator tube (gold top) for subsequent determinations. ??Contact the Clinical Chemistry Laboratory if there are any qu estions. Chloride 93 (L) 98 - 107 mmol/L [facility] CO2 26 22 - 31 mmol/L [facility] Anion Gap 12 5 - 15 mmol/L [facility] Calcium 9.7 8.5 - 10.5 mg/dL [facility] Total Protein 7.9 6.1 - 8.0 gm/dL [facility] Albumin 4.6 3.2 - 5.2 gm/dL [facility] AST 26 0 - 39 unit/L [facility] ALT 26 0 - 55 unit/L [facility] Alk Phos 107 40 - 120 unit/L [facility] Total Bilirubin 0.9 0.2 - 1.3 mg/dL [facility] Estimated GFR 75 >=60 mL/min/1.73 m?? [facility] Comment: The eGFR was calculated using the CKD-EP I equation. As with all creatinine based estimates of kidney function, eGFR values calculated with the CKD-EPI equation are not accurate in patients wi th acute kidney failure, extremes of body mass or the acutely ill. http://[email or web address] [email or web address] eGFR 86 >=60 mL/min/1.73 m?? [facility] Comment: The eGFR was calculated using the CKD-EP I equation. As with all creatinine based estimates of kidney function, eGFR values calculated with the CKD-EPI equation are not accurate in patients wi th acute kidney failure, extremes of body mass or the acutely ill. [email or web address] [email or web address] Specimen Anatomical Collection Method Collection Time Receive d Time (Source) Location / / Volume Laterality Blood specimen 03/11/2018 8:01 AM 018 8:04 (specimen) EDT AM EDT Resulting Agency Comment Spec In Lab Eriberto Melgar MD CHEMISTRY ORDERABLES Performing Organization Address City/State/[place] [address] Cholesterol, total (03/11/2018 8:01 AM EDT) athologist Signature Chol, Total 150 mg/dL [facility] Comment: Lower Risk: <200 mg/dL Average Risk: 200-239 mg/dL Higher Risk: >nz=117 mg/dL Lipid Interpretation See Note [facility] Comment: Lipid management should be guided by a p atient? s ASCVD risk, goals and preferences. ACC/AHA Guidelines recommend high intens ity statin if clinical ASCVD or LDL greater than or equal to 190 mg/dL. [email or web address]-QKI-Hklefwyzc Adults aged 40-75 with LDL 70-189 mg/dL should have their 10 year ASCVD risk estimated with the ACC/AHA ASCVD risk es timator http://tools.acc.org/WQKXA-Xupv-Ozgjpuvm r/ Statin should be discussed if risk [...] Location / / Volume Laterality Blood specimen 03/11/2018 8:01 AM 018 8:04 (specimen) EDT AM EDT Resulting Agency Comment Spec In Lab Eriberto Melgar MD CHEMISTRY ORDERABLES Performing Organization Address City/State/ZIP Code Phon e Number [place] [id number] Amylase (03/11/2018 8:01 AM EDT) P athologist Signature Amylase 63 28 - 100 [facility] unit/L [facility] Specimen Anatomical Collection Method Collection Time Receive d Time (Source) Location / / Volume Laterality Blood specimen 03/11/2018 8:01 AM 018 8:04 (specimen) EDT AM EDT Resulting Agency Comment Spec In Lab Eriberto Melgar MD CHEMISTRY ORDERABLES Performing Organization Address City/[facility]/ZIP Code Phon e Number [place] [phone] documented in this encounter Visit Diagnoses Diagnosis 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 Immunosuppression Unspecified disorder of immune mechanism Aftercare following organ transplant Prophylactic immunotherapy Need for prophylactic immunotherapy documented in this encounter Care Teams Psychologist Clinical Relationship Specialty Start Date End Date Anna Mullen MD PCP - General 12/03/10 [address] [place] [address] documented as of this encounter
--- OUTSIDE RECORDS SUMMARY | 2022-03-13 18:27 | XMS_ITS | Encounter Summary ---
:1965 Author Organization [facility] [place] [address] Care Team Providers Name Role Phone Anna Mullen MD Primary Care Provider Encounter Details Date Type Department Care Team Description 07/29/2017 Hospital Encounter [place] [address] Social History Tobacco Use Types Packs/Day [...] Diagnosis Comme nts FILM LIBRARY Routine 07/29/2017 12:05 AM Results for this STORAGE ONLY CT EST procedure ar e in SPINE the results section. documented in this encounter Results Film Library- Storage Only CT Spine (07/29/2017 12:05 AM EST) Specimen (Source) Anatomical Location Collection Method / Collectio n Time Received Time / Laterality Volume Narrative JANE - 07/31/2017 6:24 PM EST This exam is for storage only and is aut o-finalizing. Bruce Moreno III, MD Brigitte FILM LIBRARY ORDERAB LES Performing Organization Address City/State/ZIP Code Phon e Number [facility] JANE [place], [place] documented in this encounter Visit Diagnoses Not on filedocumented in this encounter Care Teams Certified Nursing Assistant Relationship Specialty Start Date End Date Anna Mullen MD PCP - General 12/03/10 [address] [place] [address] documented as of this encounter
--- OUTSIDE RECORDS SUMMARY | 2022-03-13 18:27 | XMS_ITS | Encounter Summary ---
:1965 Author Organization [facility] [place] [address] Care Team Providers Name Role Phone Anna Mullen MD Primary Care Provider Encounter Details Date Type Department Care Team Description 07/29/2017 Multidisciplinary Care Solid Organ Otto Committee Transplant at [facility] [place] [address] Social History Tobacco Use Types [...] on filedocumented in this encounter Care Teams Diet Counselor Relationship Specialty Start Date End Date Anna Mullen MD PCP - General 12/03/10 [address] [place] [address] documented as of this encounter
--- OUTSIDE RECORDS SUMMARY | 2022-03-13 18:27 | XMS_ITS | Encounter Summary ---
:1965 Author Organization [facility] [place] [address] Care Team Providers Name Role Phone Anna Mullen MD Primary Care Provider Encounter Details Date Type Department Care Team Description 07/29/2017 Telephone Solid Organ Transplant at Yomaira Zamudio [facility] [place], [place] [address] Social History Tobacco Use Types Packs/Day Years Used Date Never Smoker Smokeless Tobacco: Never Used Alcohol Use Standard Drinks/Week Comments No 0 (1 standard drink = 0.6 oz pure alcoho l) history of abuse, stopped 1996 Sex Assigned at Date Recorded Male 05/29/2021 11:28 PM EDT documented as of this encounter Miscellaneous Notes Telephone Encounter - Yomaira Arzate, RN - 07/29/2017 11:02 AM EST Patient's Tiffani called because he is admitted with fevers at an OSH and she is concerned that heis not being adequately cared for. He has been admitted for fevers with a rash and headache. Tiffani reports that the OSH is planning on discharging him today. Reviewed with Dr. Melgar who recommends that if she is unhappy with his care she can ask to have him transferred to or bring him to ER after discharge. Reviewed with Tiffani who reports understanding and states that she will have the inpatient team call Dr. Melgar prior to discharge today. documented in this encounter Plan of Treatment Not on filedocumented as of this encounter Visit Diagnoses Not on filedocumented in this encounter Care Teams Kettle Operator Head Relationship Specialty Start Date End Date Anna Mullen MD PCP - General 12/03/10 [address] [place] [address] documented as of this encounter
--- OUTSIDE RECORDS SUMMARY | 2022-03-13 18:27 | XMS_ITS | Encounter Summary ---
:1965 Author Organization [place] [address] Care Team Providers Name Role Phone Anna Mullen MD Primary Care Provider Encounter Details Date Type Department Care Team Description 03/11/2018 Laboratory Appointment Lab 3L [facility] Pancreas replaced by [facility] [place] [id number] Social History Tobacco Use Types Packs/Day Years [...] Procedure Name Priority Date/Time Associated Comments Diagnosis PROTEIN/CREATININE STAT 03/11/2018 8:03 AM Pancreas replace d Results for this RATIO, URINE EDT by transplant procedure are in the results section. URINALYSIS WITH REFLEX STAT 03/11/2018 8:03 AM Pancreas rep laced Results for this CULTURE EDT by transplant procedure are in the results section. HEMOGRAM STAT 03/11/2018 8:01 AM Pancreas replaced Resu lts for this EDT by transplant procedure are in the results section. DIFFERENTIAL, STAT 03/11/2018 8:01 AM Pancreas replaced Res ults for this AUTOMATED EDT by transplant procedure are in the results section. GOLD TUBE HOLD STAT 03/11/2018 8:01 AM Pancreas replaced Re sults for this EDT by transplant procedure are in the results section. LAVENDER TUBE HOLD STAT 03/11/2018 8:01 AM Pancreas replace d Results for this EDT by transplant procedure are in the results section. TACROLIMUS LEVEL STAT 03/11/2018 8:01 AM Pancreas replaced Results for this EDT by transplant procedure are in the results section. RETICULOCYTE COUNT STAT 03/11/2018 8:01 AM Pancreas replace d Results for this EDT by transplant procedure are in the results section. CBC (WITH DIFF) STAT 03/11/2018 8:01 AM Pancreas replaced EDT by transplant URIC ACID STAT 03/11/2018 8:01 AM Pancreas replaced Resu lts for this EDT by transplant procedure are in the results section. PHOSPHORUS STAT 03/11/2018 8:01 AM Pancreas replaced Resu lts for this EDT by transplant procedure are in the results section. MAGNESIUM STAT 03/11/2018 8:01 AM Pancreas replaced Resu lts for this EDT by transplant procedure are in the results section. LIPASE STAT 03/11/2018 8:01 AM Pancreas replaced Resu lts for this EDT by transplant procedure are in the results section. CHOLESTEROL, TOTAL STAT 03/11/2018 8:01 AM Pancreas replace d Results for this EDT by transplant procedure are in the results section. AMYLASE STAT 03/11/2018 8:01 AM Pancreas replaced Resu lts for this EDT by transplant procedure are in the results section. COMPREHENSIVE STAT 03/11/2018 8:01 AM Pancreas replaced Res ults for this METABOLIC PANEL EDT by transplant procedure a re in (NON-FASTING) the results section. documented in this encounter Results Urinalysis with reflex Culture (03/11/2018 8:03 AM EDT) [facility] Method Time Signature Glucose UA Negative Negative [facility] Protein UA Negative Negative [facility] mg/dL [facility] Bilirubin UA Negative Negative [facility] mg/dL [facility] Comment: Clinical correlation required for positi ve Urine Bilirubin results as false positive may occur with some drugs and d rug related products. If a false positive is suspected a serum total bili sinha should be considered if clinically indicated. Urobilinogen UA Normal Normal mg/dL [facility] pH UA 6.0 5.0 - 8.0 [facility] Blood UA Negative Negative mg/dL [facility] Ketones UA Negative Negative mg/dL [facility] Nitrite UA Negative Negative [facility] Leukocytes UA Negative Negative [facility] LABORATORY Appearance UA Clear Clear [facility] Spec Wagram UA 1.009 1.002 - 1.030 [facility] Color UA Yellow Yellow [facility] Culture Reflexed No [facility] Specimen (Source) Anatomical Collection Method Collection Time Re ceived Time Location / / Volume Laterality Urine specimen 03/11/2018 8:03 03/11/2018 8:12 obtained by clean AM EDT AM EDT catch procedure (specimen) Resulting Agency Comment Spec In Lab Eriberto Melgar MD URINE ORDERABLES Performing Organization Address City/[facility]/ZIP Code Phon e Number [address] Protein/Creatinine Ratio, urine (03/11/2018 8:03 AM EDT) P athologist Signature U Creatinine 50 mg/dL [facility] U Protein Ran <6 0 - 12 [facility] mg/dL [facility] Prot/Cre Ratio <0.1 ratio [facility] Specimen Anatomical Collection Method Collection Time Receive d Time (Source) Location / / Volume Laterality Urine specimen 03/11/2018 8:03 AM 018 8:13 (specimen) EDT AM EDT Resulting Agency Comment Spec In Lab Eriberto Melgar MD URINE ORDERABLES Performing Organization Address City/State/ZIP Code Phon e Number [address] (ABNORMAL) Differential, Automated (03/11/2018 8:01 AM EDT) Patholo gist Method Time Signature Neutrophils % 40.1 % [facility] Neutr Abs (ANC) 3.09 1.70 - [facility] 6.10 [place] [id number](3)/[facility] LABORATORY Lymphocytes % 49.0 % [facility] Lymphocytes Abs 3.8 (H) 0.9 - 3.2 [facility] x10(3)/[facility] LABORATORY Monocytes % 7.5 % [facility] Monocyte Abs 0.6 0.3 - 0.9 [facility] x10(3)/[facility] LABORATORY Eosinophils % 2.3 % [facility] Eosinophils Abs 0.2 0.0 - 0.4 [facility] x10(3)/[facility] LABORATORY Basophils % 0.8 % [facility] Basophils Abs 0.1 0.0 - 0.1 [place] [id number](3)/[facility] LABORATORY Immature Gran % 0.30 % [facility] Comment: Immature granulocytes(IG's)percentage an d absolute count will include metamyelocytes, myelocytes, and promyelo cytes. Blood smears from CBCs yielding IG's will be scanned manually for concor dance. If this scan disagrees with the automated IG or if promyelocytes are not ed, a manual differential will be performed. Kym Gran Abs 0.02 0.00 - 0.04 x10(3)/[facility] LABORATORY Specimen Anatomical Collection Method Collection Time Receive d Time (Source) Location / / Volume Laterality Blood specimen 03/11/2018 8:01 AM 018 8:04 (specimen) EDT AM EDT Resulting Agency Comment Spec In Lab Eriberto Melgar MD HEMATOLOGY ORDERABLES Performing Organization Address City/State/[place] [address] Hemogram (03/11/2018 8:01 AM EDT) P athologist Signature WBC 7.7 4.0 - 9.5 [facility] x10(3)/[facility] LABORATORY RBC 4.77 4.58 - [facility] 5.54 [facility] x10(6)/[facility] LABORATORY Hemoglobin 14.2 13.7 - [facility] 16.5 gm/dL [facility] Hematocrit 41.5 40.5 - [facility] [place] 48.5 % [facility] MCV 87.0 82.9 - [facility] 93.1 [facility] LABORATORY MCH 29.8 27.5 - [facility] 32.1 pg [facility] LABORATORY MCHC 34.2 32.0 - [place] 35.7 gm/dL [facility]ORATORY Platelets 238 145 - 357 [facility] x10(3)/[facility] LABORATORY RDWSD 38.6 36.0 - [facility] 45.0 [facility] LABORATORY RDWCV 12.3 11.4 - [facility] 13.8 % [facility] LABORATORY MPV 9.6 7.6 - 12.9 [facility] LABORATORY nRBC % Auto 0.0 % [facility]OR[facility]ORY nRBC Abs Auto 0.000 0.000 [facility] 0.000 [facility] x10(3)/[facility] LABORATORY Specimen Anatomical Collection Method Collection Time Receive d Time (Source) Location / / Volume Laterality Blood specimen 03/11/2018 8:01 AM 018 8:04 (specimen) EDT AM EDT Resulting Agency Comment Spec In Lab Eriberto Melgar MD HEMATOLOGY ORDERABLES Performing Organization Address City/State/ZIP Code Phon e Number [address] Gold Tube HOLD (03/11/2018 8:01 AM EDT) P athologist Signature Gold Hold Sample in [facility] LABORATORY Specimen Anatomical Collection Method Collection Time Receive d Time (Source) Location / / Volume Laterality Blood specimen 03/11/2018 8:01 AM 018 8:04 (specimen) EDT AM EDT Eriberto Melgar MD CHEMISTRY ORDERABLES Performing Organization Address City/State/ZIP Code Phon e Number [address] Lavender Tube HOLD (03/11/2018 8:01 AM EDT) Patholo gist Method Time Signature Lavender Hold Sample in [facility] LABORATORY Specimen Anatomical Collection Method Collection Time Receive d Time (Source) Location / / Volume Laterality Blood specimen 03/11/2018 8:01 AM 018 8:04 (specimen) EDT AM EDT Eriberto Melgar MD HEMATOLOGY ORDERABLES Performing Organization Address City/[facility]/ZIP Code Phon e Number [address] Uric acid (03/11/2018 8:01 AM EDT) P athologist Signature Uric Acid 7.5 3.5 - 8.5 [facility] mg/dL [facility]OR[facility]ORY Specimen Anatomical Collection Method Collection Time Receive d Time (Source) Location / / Volume Laterality Blood specimen 03/11/2018 8:01 AM 018 8:04 (specimen) EDT AM EDT Resulting Agency Comment Spec In Lab Eriberto Melgar MD CHEMISTRY ORDERABLES Performing Organization Address [facility] [place] [address] Tacrolimus level (03/11/2018 8:01 AM EDT) athologist Signature Tacrolimus Lvl 8.5 ng/mL [facility] Comment: Trough therapeutic: ??5-15 ng/mL Performed by ultra-performance liquid ch romatography tandem mass spectrometry (UPLCMS/MS). This test was developed and its performa nce characteristics determined by [facility]. It has not been cleared or approved [...] Melgar MD CHEMISTRY ORDERABLES Performing Organization Address [facility] [place] [address] (ABNORMAL) Reticulocyte Count (03/11/2018 8:01 AM EDT) Patholo gist Method Time Signature Retic Ct % 1.2 0.7 - 2.6 [place] % [facility] LABORATORY Retic Ct Abs 0.060 0.030 - [facility] [place] 0.120 [facility] x10(6)/[facility] L LABORATORY Immature Retic% 3.6 0.0 - [place] 15.6 % [facility] LABORATORY Reticulated Hgb 40.3 (H) 31.3 - [facility] 40.2 pg [facility] LABORATORY Specimen Anatomical Collection Method Collection Time Receive d Time (Source) Location / / Volume Laterality Blood specimen 03/11/2018 8:01 AM 018 8:04 (specimen) EDT AM EDT Resulting Agency Comment Spec In Lab Eriberto Melgar MD HEMATOLOGY ORDERABLES Performing Organization Address City/[facility]/ZIP Code Phon e Number [address] Phosphorus (03/11/2018 8:01 AM EDT) P athologist Signature Phosphorus 3.2 2.5 - 4.5 [place] [place] mg/dL [facility] LABORATORY Specimen Anatomical Collection Method Collection Time Receive d Time (Source) Location / / Volume Laterality Blood specimen 03/11/2018 8:01 AM 018 8:04 (specimen) EDT AM EDT Resulting Agency Comment Spec In Lab Eriberto Melgar MD CHEMISTRY ORDERABLES Performing Organization Address City/[facility]/ZIP Code Phon e Number [address] Magnesium (03/11/2018 8:01 AM EDT) P athologist Signature Magnesium 0.71 0.69 - 1.07 [place] mmol/L [facility] LABORATORY Specimen Anatomical Collection Method Collection Time Receive d Time (Source) Location / / Volume Laterality Blood specimen 03/11/2018 8:01 AM 018 8:04 (specimen) EDT AM EDT Resulting Agency Comment Spec In Lab Eriberto Melgar MD CHEMISTRY ORDERABLES Performing Organization Address City/[facility]/ZIP Code Phon e Number [address] Lipase (03/11/2018 8:01 AM EDT) athologist Signature Lipase 21 0 - 60 [facility] unit/L [facility] LABORATORY Specimen Anatomical Collection Method Collection Time Receive d Time (Source) Location / / Volume Laterality Blood specimen 03/11/2018 8:01 AM 018 8:04 (specimen) EDT AM EDT Resulting Agency Comment Spec In Lab Eriberto Melgar MD CHEMISTRY ORDERABLES Performing Organization Address City/State/[place] [address] (ABNORMAL) Comprehensive metabolic panel (non-fasting) (03/11/2018 8:01 AM EDT) athologist Signature Glucose Lvl 108 65 - 199 [facility] mg/dL [facility] Comment: Diabetes: >=200 mg/dL plus symp toms BUN 20 10 - 20 mg/dL [facility] Creatinine 1.14 0.80 - 1.50 mg/dL [facility] Sodium 131 (L) 135 - 145 mmol/L [facility] Potassium 4.7 3.5 - 5.0 mmol/L [facility] Comment: Please note: ??Patients with WBC >100,00 0 may have falsely elevated Potassium levels. ??For accurate Potassium quantif ication in these patients send serum separator tube (gold top) for subsequent determinations. ??Contact the Clinical Chemistry Laboratory if there are any qu estions. Chloride 93 (L) 98 - 107 mmol/L [facility] CO2 26 22 - 31 mmol/L [facility] Anion Gap 12 5 - 15 mmol/L [facility] Calcium 9.7 8.5 - 10.5 mg/dL [facility] Total Protein 7.9 6.1 - 8.0 gm/dL [facility] Albumin 4.6 3.2 - 5.2 gm/dL [facility] AST 26 0 - 39 unit/L [facility] ALT 26 0 - 55 unit/L [facility] Alk Phos 107 40 - 120 unit/L [facility] Total Bilirubin 0.9 0.2 - 1.3 mg/dL [facility] Estimated GFR 75 >=60 mL/min/1.73 m?? [facility] Comment: The eGFR was calculated using the CKD-EP I equation. As with all creatinine based estimates of kidney function, eGFR values calculated with the CKD-EPI equation are not accurate in patients wi th acute kidney failure, extremes of body mass or the acutely ill. http://[place]/Interfolionkdep http://[place]/Interfolionkf eGFR 86 >=60 mL/min/1.73 m?? [facility] Comment: The eGFR was calculated using the CKD-EP I equation. As with all creatinine based estimates of kidney function, eGFR values calculated with the CKD-EPI equation are not accurate in patients wi th acute kidney failure, extremes of body mass or the acutely ill. http://[place]/Interfolionkdep http://[place]/DHnkf Specimen Anatomical Collection Method Collection Time Receive d Time (Source) Location / / Volume Laterality Blood specimen 03/11/2018 8:01 AM 018 8:04 (specimen) EDT AM EDT Resulting Agency Comment Spec In Lab Eriberto Melgar MD CHEMISTRY ORDERABLES Performing Organization Address City/State/[place] [address] Cholesterol, total (03/11/2018 8:01 AM EDT) P athologist Signature Chol, Total 150 mg/dL [facility] Comment: Lower Risk: <200 mg/dL Average Risk: 200-239 mg/dL Higher Risk: >ht=242 mg/dL Lipid Interpretation See Note [facility] LABOR[facility]ORY Comment: Lipid management should be guided by a p atient? s ASCVD risk, goals and preferences. ACC/AHA Guidelines recommend high intens ity statin if clinical ASCVD or LDL greater than or equal to 190 mg/dL. http://tinyurl.com/WIE-QZL-Avsnktyrg Adults aged 40-75 with LDL 70-189 mg/dL should have their 10 year ASCVD risk estimated with the ACC/AHA ASCVD risk es timator http://tools.acc.org/LSUQV-Dzgk-Bajqiuff r/ Statin should be discussed if risk [...] Melgar MD CHEMISTRY ORDERABLES Performing Organization Address City/[facility]/[place] [address] Amylase (03/11/2018 8:01 AM EDT) P athologist Signature Amylase 63 28 - 100 [facility] unit/L [facility]OR[facility]ORY Specimen Anatomical Collection Method Collection Time Receive d Time (Source) Location / / Volume Laterality Blood specimen 03/11/2018 8:01 AM 018 8:04 (specimen) EDT AM EDT Resulting Agency Comment Spec In Lab Eriberto Melgar MD CHEMISTRY ORDERABLES Performing Organization Address City/[facility]/[place] [address] documented in this encounter Visit Diagnoses Diagnosis 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
--- OUTSIDE RECORDS SUMMARY | 2022-03-13 18:27 | XMS_ITS | Encounter Summary ---
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; Transplant at [facility] MD Arlyn PATIENT NOT SEEN [facility] [address] [place] [address] [place] [address] [phone] Social History Tobacco Use Types Packs/Day Years Used Date Never Smoker Smokeless Tobacco: Never Used Alcohol Use Standard Drinks/Week Comments No 0 (1 standard drink = 0.6 oz pure alcoho l) history of abuse, stopped 1996 Sex Assigned at Date Recorded Male 05/29/2021 11:28 PM EDT documented as of this encounter Progress Notes Eriberto Melgar MD - 08/07/2017 11:13 AM EST This patient was not seen in this encounter since he was discharged this week due to 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 documented in this encounter Plan of Treatment Not on filedocumented as of this encounter Results Thom Tube HOLD (09/15/2017 9:11 AM EST) P athologist Signature Gold Hold Sample in [facility]. [facility] Specimen Anatomical Collection Method Collection Time Receive d Time (Source) Location / / Volume Laterality Blood specimen 09/15/2017 9:11 AM 018 9:23 (specimen) EST AM EST Eriberto Melgar MD CHEMISTRY ORDERABLES Performing Organization Address City/[facility]/ZIP Code Phon e Number [address] Lavender Tube HOLD (09/15/2017 9:11 AM EST) Patholo gist Method Time Signature Lavender Hold Sample in [facility] LABORATORY Specimen Anatomical Collection Method Collection Time Receive d Time (Source) Location / / Volume Laterality Blood specimen 09/15/2017 9:11 AM 018 9:22 (specimen) EST AM EST Eriberto Melgar MD HEMATOLOGY ORDERABLES Performing Organization Address City/[facility] [place] [address] (ABNORMAL) Vitamin D, 25-Hydroxy (09/15/2017 9:11 AM EST) athologist Signature 25-OH Vit D 22 (L) 30 - 100 [facility] Total ng/mL [facility] Comment: Deficient <10 ng/mL Insufficient 10 to 29 ng/mL Sufficient 30 to 100 ng/mL Potential Intoxication >100 ng/mL According to the [place] National Osteoporosi s Foundation, Vitamin D concentrations >30 ng/mL are sufficient to protect bone health. ??The National Kidney Foundation has similarly stated that pat ients with Vitamin D concentrations <30ng/mL should be considered to be insu fficient or deficient. http://[employer].com/nkf-guidelines http://[employer].com/nejm-VitD The [employer] Vitamin D Immunoassay detec [...] Melgar MD CHEMISTRY ORDERABLES Performing Organization Address City/[facility] Phon e Number [address] Uric acid (09/15/2017 9:11 AM EST) athologist Signature Uric Acid 7.7 3.5 - 8.5 [facility] mg/dL [facility] Specimen Anatomical Collection Method Collection Time Receive d Time (Source) Location / / Volume Laterality Blood specimen 09/15/2017 9:11 AM 018 9:23 (specimen) EST AM EST Resulting Agency Comment Spec In Lab Eriberto Melgar MD CHEMISTRY ORDERABLES Performing Organization Address [facility] [place] [address] Tacrolimus level (09/15/2017 9:11 AM EST) athologist [facility] Tacrolimus Lvl 8.3 ng/mL [facility] Comment: Trough therapeutic: ??5-15 ng/mL Performed by ultra-performance liquid ch romatography tandem mass spectrometry (UPLCMS/MS). This test was developed and its performa nce characteristics determined by [facility]. It has not been cleared [...] Melgar MD CHEMISTRY ORDERABLES Performing Organization Address [facility] Phon e Number [address] Reticulocyte Count (09/15/2017 9:11 AM EST) athologist Signature Retic Ct % 1.0 0.7 - 2.6 [facility] % [facility] Retic Ct Abs 0.040 0.030 - [facility] [place] 0.120 [facility] x10(6)/[facility] LABORATORY Immature Retic% 4.9 0.0 - 15.6 [facility] K % [facility] Reticulated Hgb 34.1 31.3 - [facility] pg [facility] Specimen Anatomical Collection Method Collection Time Receive d Time (Source) Location / / Volume Laterality Blood specimen 09/15/2017 9:11 AM 018 9:22 (specimen) EST AM EST Resulting Agency Comment Spec In Lab Eriberto Melgar MD HEMATOLOGY ORDERABLES Performing Organization Address City/[facility]/ZIP Code Phon e Number [address] (ABNORMAL) PTH (09/15/2017 9:11 AM EST) P athologist Signature PTH 85 (H) 15 - 65 [facility] pg/mL [facility] Specimen Anatomical Collection Method Collection Time Receive d Time (Source) Location / / Volume Laterality Blood specimen 09/15/2017 9:11 AM 018 9:22 (specimen) EST AM EST Resulting Agency Comment Spec In Lab Eriberto Melgar MD CHEMISTRY ORDERABLES Performing Organization Address City/[facility]/ZIP Code Phon e Number [address] Phosphorus (09/15/2017 9:11 AM EST) P athologist Signature Phosphorus 3.1 2.5 - 4.5 [facility] [place] mg/dL [facility] Specimen Anatomical Collection Method Collection Time Receive d Time (Source) Location / / Volume Laterality Blood specimen 09/15/2017 9:11 AM 018 9:23 (specimen) EST AM EST Resulting Agency Comment Spec In Lab Eriberto Melgar MD CHEMISTRY ORDERABLES Performing Organization Address City/[facility]/ZIP Code Phon e Number [address] BKV Quant Blood (09/15/2017 9:11 AM EST) Component Value Ref Test Analysis Performed At Patholo gist Range Method Time Signature BKV Blood Not Detected [facility] Result [facility] BKV Blood BK Virus Plasma Result Interpretation [facility] Michellep [facility] Result: BK Virus not detected HOSPITAL Specimen type: plasma LABORATO RY Assay Range: 2.83-8.83 log copies/mL (6.8x10^2 - 6.8x10^8 co pies/mL) Methods: Quantitative real-time polymerase chain react ion (PCR) of viral DNA isolated from plasma was performed using [employer] (formerly, [employer]) BKV analyte-specific reagents and the ENDOTRONIX 7 500 FAST Real-Time PCR System. In [...] and Advanc ed Technology (CGAT) Laboratory at [facility]. It has not been cleared or approved [...] Organization Address City/State/[place] [address] Magnesium (09/15/2017 9:11 AM EST) P athologist Signature Magnesium 0.83 0.69 - 1.07 [facility] mmol/L [facility] Specimen Anatomical Collection Method Collection Time Receive d Time (Source) Location / / Volume Laterality Blood specimen 09/15/2017 9:11 AM 018 9:23 (specimen) EST AM EST Resulting Agency Comment Spec In Lab Eriberto Melgar MD CHEMISTRY ORDERABLES Performing Organization Address City/State/ZIP Code Phon e Number [facility] [address] (ABNORMAL) Lipid Panel (09/15/2017 9:11 AM EST) [facility] Method Time Signature Chol, Total 151 <=239 [facility] mg/dL [facility] Triglycerides 110 <=199 [facility] mg/dL [facility] HDL 36 (L) >=40 [facility] mg/dL [facility] LDL Cholesterol 93 <=190 [facility] mg/dL [facility] Chol/HDL Ratio 4.2 ratio [facility] Lipid See Note [facility] Interpretation [facility] Comment: Lipid management should be guided by a p atient? s ASCVD risk, goals and preferences. ACC/AHA Guidelines recommend high intens ity statin if clinical ASCVD or LDL greater than or equal to 190 mg/dL. http://Chango/KXN-SGD-Osdpygdtc Adults aged 40-75 with LDL 70-189 mg/dL should have their 10 year ASCVD risk estimated with the ACC/AHA ASCVD risk es timator http://tools.acc.org/LGISS-Nyea-Fnkglmet r/ Statin should be discussed if risk [...] Address City/State/ZIP Code Phon e Number [facility] [address] Lipase (09/15/2017 9:11 AM EST) athologist Signature Lipase 24 0 - 60 [facility] unit/L [facility] Specimen Anatomical Collection Method Collection Time Receive d Time (Source) Location / / Volume Laterality Blood specimen 09/15/2017 9:11 AM 018 9:23 (specimen) EST AM EST Resulting Agency Comment Spec In Lab Eriberto Melgar MD CHEMISTRY ORDERABLES Performing Organization Address City/State/ZIP Code Phon e Number [address] Hemoglobin A1c (09/15/2017 9:11 AM EST) athologist Signature Hemoglobin A1C 5.4 4.3 - 5.6 [facility] [...] 1, S67-74 Est Avg Gluc 108 mg/dL [facility] Comment: eAG equivalents for HbA1c percentages: HbA1c(%) ?eAG(mg/dL) 6.0 ?126 6.5 ?140 7.0 ?154 7.5 ?169 8.0 ?183 8.5 ?197 9.0 ?212 9.5 ?226 10.0 ? 240 Limitations: The eAG calculation has not been validated on women, individuals below 18 years old and above 70 years old, and individuals with hemoglobinopathies. Additional resources are available on [facility] website. Edinson GRISSOM, Nathaniel J, Ari R, et al. ??Tr anslating the A1C assay into estimated average glucose values. ??Diabetes Care 2008:31(8):1721-6873. Specimen Anatomical Collection Method Collection Time Receive d Time (Source) Location / / Volume Laterality Blood specimen 09/15/2017 9:11 AM 018 9:22 (specimen) EST AM EST Resulting Agency Comment Spec In Lab Eriberto Melgar MD CHEMISTRY ORDERABLES Performing Organization Address City/State/ZIP Code Phon e Number [place] [id number] (ABNORMAL) CMP w/fasting Glucose (09/15/2017 9:11 AM EST) athologist Signature Glucose 116 (H) 65 - 99 [facility] Fasting mg/dL [facility] Comment: ?Fasting* Glucose Interpretive C [...] of Diabetes Mellitus, Position Statement from the [place] [employer]. ??Diabete s Care, Volume 33, Supplement 1, Aug 2009 BUN 15 10 - 20 mg/dL [facility] Creatinine 1.17 0.80 - 1.50 mg/dL [facility] Sodium 134 (L) 135 - 145 mmol/L [facility] Potassium 4.5 3.5 - 5.0 mmol/L [facility] Comment: Please note: ??Patients with WBC >100,00 0 may have falsely elevated Potassium levels. ??For accurate Potassium quantif ication in these patients send serum separator tube (gold top) for subsequent determinations. ??Contact the Clinical Chemistry Laboratory if there are any qu estions. Chloride 97 (L) 98 - 107 mmol/L [facility] CO2 27 22 - 31 mmol/L [facility] Anion Gap 10 5 - 15 mmol/L [facility] Calcium 9.0 8.5 - 10.5 mg/dL [facility] Total Protein 7.4 6.1 - 8.0 gm/dL [facility] Albumin 4.1 3.2 - 5.2 gm/dL [facility] AST 34 0 - 39 unit/L [facility] ALT 28 0 - 55 unit/L [facility] Alk Phos 151 (H) 40 - 120 unit/L [facility] Total Bilirubin 0.9 0.2 - 1.3 mg/dL [facility] Estimated GFR >60 >=60 [facility] Comment: The reported eGFR should be multiplied b y 1.2 for patients. The MDRD is not an appropriate measure o f renal function for patients with body mass extremes or in patients with acute kidney failure. http://[employer].Regalii/DHnkdep http://Chango/DHMCnkf Specimen Anatomical Collection Method Collection Time Receive d Time (Source) Location / / Volume Laterality Blood specimen 09/15/2017 9:11 AM 018 9:23 (specimen) EST AM EST Resulting Agency Comment Spec In Lab Eriberto Melgar MD CHEMISTRY ORDERABLES Performing Organization Address City/State/Z[place] [address] Amylase (09/15/2017 9:11 AM EST) P athologist Signature Amylase 55 28 - 100 [facility] [place] unit/L [facility] Specimen Anatomical Collection Method Collection Time Receive d Time (Source) Location / / Volume Laterality Blood specimen 09/15/2017 9:11 AM 018 9:23 (specimen) EST AM EST Resulting Agency Comment Spec In Lab Eriberto Melgar MD CHEMISTRY ORDERABLES Performing Organization Address City/[facility]/ZIP Code Phon e Number [address] 1,25-dihydroxycholecalciferol (09/15/2017 9:11 AM EST) P athologist Signature Vit D 1,25 59 18 - 64 [facility] [place] pg/mL [facility] Comment: ADDITIONAL INFORMATIO N This test was developed and its performa nce characteristics determined by [facility] in a manner co nsistent with CLIA requirements. This test has not been gene ared or approved by the U.S. Food and Drug Administration. Test Performed by: [facility] [address] [place], [place] [address] Specimen Anatomical Collection Method Collection Time Receive d Time (Source) Location / / Volume Laterality Blood specimen 09/15/2017 9:11 AM 018 1:38 (specimen) EST PM EST Resulting Agency Comment Spec In Lab Eriberto Melgar MD CHEMISTRY ORDERABLES Performing Organization Address City/[facility]/[place] [address] (ABNORMAL) Urinalysis with reflex Culture (09/15/2017 9:08 AM EST) Patholo gist Method Time Signature Glucose UA Negative Negative [facility] [place] mg/dL [facility] Protein UA Negative Negative [facility] [place] mg/dL [facility] Bilirubin UA Negative Negative [facility] [place] mg/dL [facility] Comment: Clinical correlation required for positi ve Urine Bilirubin results as false positive may occur with some drugs and d rug related products. If a false positive is suspected a serum total bili sinha should be considered if clinically indicated. Urobilinogen UA >=4.0 (A) Normal mg/dL [facility] pH UA 6.0 5.0 - 8.0 [facility] Blood UA Negative Negative mg/dL [facility] Ketones UA Negative Negative mg/dL [facility] Nitrite UA Negative Negative [facility] Leukocytes UA Negative Negative [facility] LABORATORY Appearance UA Clear Clear [facility] Spec [place] UA 1.015 1.002 - 1.030 [facility] Color UA Yellow Yellow [facility] Culture Reflexed No [facility] Specimen (Source) Anatomical Collection Method Collection Time Re ceived Time Location / / Volume Laterality Urine specimen 09/15/2017 9:08 09/15/2017 9:16 obtained by clean AM EST AM EST catch procedure (specimen) Resulting Agency Comment Spec In Lab Eriberto Melgar MD URINE ORDERABLES Performing Organization Address City/State/ZIP Code Phon e Number [address] Protein/Creatinine Ratio, urine (09/15/2017 9:08 AM EST) P athologist Signature U Creatinine 164 mg/dL [facility] U Protein Ran 12 0 - 12 [facility] mg/dL [facility] Prot/Cre Ratio <0.1 ratio [facility] Specimen Anatomical Collection Method Collection Time Receive d Time (Source) Location / / Volume Laterality Urine specimen 09/15/2017 9:08 AM 018 9:16 (specimen) EST AM EST Resulting Agency Comment Spec In Lab Eriberto Melgar MD URINE ORDERABLES Performing Organization Address City/[facility]/ZIP Code Phon e Number [address] Phosphorus, urine, random (09/15/2017 9:08 AM EST) P athologist Signature U Phosphorus 45.8 mg/dL [facility] Specimen Anatomical Collection Method Collection Time Receive d Time (Source) Location / / Volume Laterality Urine specimen 09/15/2017 9:08 AM 018 9:16 (specimen) EST AM EST Resulting Agency Comment Spec In Lab Eriberto Melgar MD URINE ORDERABLES Performing Organization Address City/[facility]/[place] [address] Calcium Creatinine Ratio, random urine (09/15/2017 9:08 AM EST) athologist Signature U Calcium 1.9 mg/dL [facility] U Creatinine 164 mg/dL [facility] Ca/Cre Ratio 0.01 ratio [facility] Specimen Anatomical Collection Method Collection Time Receive d Time (Source) Location / / Volume Laterality Urine specimen 09/15/2017 9:08 AM 018 9:16 (specimen) EST AM EST Resulting Agency Comment Spec In Lab Eriberto Melgar MD URINE ORDERABLES Performing Organization Address City/[facility]/[place] [address] documented in this encounter Visit Diagnoses Diagnosis 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
--- OUTSIDE RECORDS SUMMARY | 2022-03-13 18:27 | XMS_ITS | Encounter Summary ---
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 Aftercare following organ transplant History of ASCVD (arteriosclerotic cardiovascular disease) Eriberto Melgar [facility] Non-Inv Card Lab Procedures Echo pharm stress test (DSE) [place] [address] [place] [address] Referral ID Status Reason Start Date Expiration Visits Visits Date Requested Authorized [id number] Specialty 07/09/2017 09/06/2017 1 1 Service Requested Reason for Visit Diagnostic Test (Routine) - Specialty Diagnoses / Procedures Referred By Contact Refer red To Contact Diagnoses 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 Aftercare following organ transplant History of ASCVD (arteriosclerotic cardiovascular disease) Eriberto Melgar [facility] Non-Inv Card Lab Procedures Echo pharm stress test (DSE) [facility] [place] [address] [place] [address] Referral ID Status Reason Start Date Expiration Visits Visits Date Requested Authorized [id number] Specialty 07/09/2017 09/06/2017 1 1 Service Requested Encounter Details Date Type Department Care Team Description 03/11/2018 Hospital Encounter Non-Invasive [place], 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; Cardiology Lab Bruce Flores Aftercare following organ transplant; [facility] MEDICAL History o f ASCVD (arteriosclerotic cardiovascular disease) [facility] CENTER [facility] [place] [id number] [phone] Social History Tobacco Use Types Packs/Day Years Used Date Never Smoker Smokeless Tobacco: Never Used Alcohol Use Standard Drinks/Week Comments No 0 (1 standard drink = 0.6 oz pure alcoho l) history of abuse, stopped 1996 Sex Assigned at Date Recorded Male 05/29/2021 11:28 PM EDT documented as of this encounter Last Filed Vital Signs Vital Sign Reading Time Taken Comments Blood Pressure 141/79 03/11/2018 8:30 AM EDT Pulse 67 03/11/2018 8:30 AM EDT Temperature - - Respiratory Rate - - Oxygen Saturation 97% 03/11/2018 8:30 AM EDT Inhaled Oxygen Concentration - - Weight 91.6 kg (202 lb) 03/11/2018 8:30 AM EDT Height 182.9 cm (6') 03/11/2018 8:30 AM EDT Body Mass Index 27.4 03/11/2018 8:30 AM EDT documented in this encounter Medications at Time [...] 6 09/14/2012 mg tablet Dx code :250.60 valACYclovir (VALTREX) Take 1 tablet by 90 tablet 3 018 08/10/2018 500 mg mouth 3 times daily TabletIndications: for 30 days. Pancreas replaced by Recurrent herpes transplant labialis valACYclovir (VALTREX) Take 1 tablet by 90 tablet 3 018 03/12/2018 500 mg mouth 3 times daily TabletIndications: for 30 days. Pancreas replaced by Recurrent herpes transplant labialis PROGRAF 1 mg Capsule Take 2 mg twice 120 capsule 11 8 02/10/2019 daily. Pancreas transplant 08/28/2013. ICD code Z94.83 CELLCEPT 250 mg Capsule TAKE TWO CAPSULES BY 360 capsule 3 0 11/18/2017 11/20/2018 MOUTH TWICE A DAY guaiFENesin Take 10 mLs by mouth 120 [...] 3 05/1405/12/2018 mg Tablet MOUTH EVERY EVENING aspirin 81 mg Tablet, Take 81 mg [...] Name Priority Date/Time Associated Diagnosis Comme nts STRESS ECHOCARDIOGRAM Routine 03/11/2018 9:36 Pancreas replace d by Results for this W LMTD SPECTRAL DOPP, AM EDT transplant procedure are in COLOR DOPP [facility]. History of ASCVD (arteriosclerotic cardiovascular disease) documented in this encounter Results STRESS ECHOCARDIOGRAM W LMTD SPECTRAL DOPP, COLOR DOPP (03/11/2018 9:36 AM EDT) P athologist Signature EF 65 HEARTLAB SYSTEM Specimen (Source) Anatomical Location Collection Method / Collectio n Time Received Time / Laterality Volume 03/11/2018 Narrative HEARTLAB SYSTEM - 03/11/2018 10:02 AM ED T Procedure: ?Stress Echocardiogram Patient: ?VAZQUEZ Guillen ?(Age): 1965(52y) Med Rec#: ? [id number] ?Sex: ?M ? Site Loc: ? [facility] ?Ht / Wt: ??183(cm)/92(kg) Pt. Loc: ?Echo Lab ?BSA: ?2.14 Study Date: ?? 03/11/2018 ?Pt. Type: Tape: ? Referring: Eriberto Melgar Reading: Bebo Dickens ([id number]) Civil Defense Director: Ariel Bazzi Civil Defense Director: Nya Doss Nurse: Lacey Sánchez Diagnosis: *Pancreas transplant status (Z94.83) Stage ? BP ?HR ? Rest ?141/79 ?73 ? Low dose ?143/78 ?89 ? Peak ?180/88 ?141 ? Recovery ?144/92 ?86 ? SUMMARY: 1. BASELINE: The left ventricular chambe r size is normal. Left ventricular wall thickness is normal. Th ere is normal global left ventricular systolic function. ??Ejectio n fraction is estimated to be 65%. Cannot exclude a wall motion abnorm ality involving a small segment of the mid lateral wall, otherwise romain l segmental systolic function. Right ventricular chamber size and systo lic function are within normal limits. No hemodynamically significant v alve disease. EKG: normal sinus rhythm. 2. DOBUTAMINE STRESS: The patient achiev ed a maximum heart rate of 141 which is 83% of the maximum predicted he art rate (170 beats/min), peak rate pressure product [id number]. The patient did not express feelings of chest discomfort. There were single vent ricular premature beats. There were no significant ST segment changes. Echocardiographically, there was normal augmentation of all wall segments . 3. CONCLUSOIN: No evidence for ischemia at a diagnostic level of stress (by rate pressure product). Findings Rest: Study Quality: ? Adequate Left Ventricle: ? The left ventricul ar chamber size is normal. ?Left ventricular wall thickness is normal. ?There is normal global left ventri cular systolic function. ??Ejection fraction is estimated to be 65%. ?Cannot exclude a wall motion abnor mality involving the ?mid lateral wall segments. ?The left ventricular diastolic arabella ling pattern is consistent with impaired LV relaxation. ?The ??mid anterolateral, and ??mid inferolateral wall segments are hypokinetic (score 2). ?Overall wallmotion score index is ??1.13 Right Ventricle: ? Right ventricular chamber size, wall thickness, and systolic function are within normal limi ts. Aortic Valve: ? The aortic valve is tricuspid. ?There is no evidence of aortic marco ve thickening. ?There is no evidence of aortic marco ve stenosis. ?There is no evidence of aortic reg urgitation. Mitral Valve: ? The mitral valve remi ears normal in structure and function. ?There is trace mitral regurgitatio n present. Tricuspid Valve: ? The tricuspid marco ve appears normal in structure and function. ?There is no evidence of tricuspid valve regurgitation present. Pericardium: ? The pericardium appea rs normal and there is no evidence of a pericardial effusion. Aorta: ? The ascending aorta is norm al in size. Stress: ? EKG: normal sinus rhythm. ?The patient's oxygen saturation wa s 99% ?The patient is on an LUPE inhibitor . Misc: ? Other echo and stress findin gs as noted in report. ?Stress echo, limited spectral Dopp ler, color Doppler and ECG interpretation performed. Findings Low dose: Stress: ? EKG: normal sinus rhythm. Findings Peak: Predicted Values:The patient achieved a maximum heart rate of 141 which is 83% of the maximum predicted heart ra te (170 beats/min). ??The target heart rate was not achieved. Left Ventricle: ? Global left ventri cular systolic function appears hyperdynamic. ?There are left ventricular segment al wall motion abnormalities present, as shown in the diagram below. ?The mid anterolateral and mid infe rolateral wall segments are unchanged. ?Overall wallmotion score index is ??1.13 Stress: ? The peak dose of Dobutamin e infused was 40 ug/kg/min. ?The patient was administered 1.0 m g of Atropine. ?The patient was administered 4 mg of Metoprolol during recovery. ?The patient performed hand squeeze s to accelerate heart rate. ?The patient did not express feelin gs of chest discomfort. ?The blood pressure response was no rmal. ?There were single ventricular harsha ature beats. ?There were no significant ST segme nt changes. ?This was a negative electrocardiog raphic stress test for ischemia. ?This was a negative echocardiograp hic stress test. ?There is no echocardiographic evid ence of myocardial ischemia at this level of stress. ?Echocardiographic findings consist ent with normal left ventricular function. ?EKG: Premature ventricular contrac tions noted. ?EKG: sinus tachycardia. ?The patient's oxygen saturation wa s Misc: ? The patient is alert and debra ented x3. ?The procedure was explained to the patient and the patient understands the procedure, ?A 20 gauge heplock was placed. ?An IV was placed in the patient's right arm. ?The IV site is dry and intact with no hematoma. ?Normal saline was given. 250cc's N S ?? Findings Recovery: Stress: ? EKG: normal sinus rhythm. ?The patient's oxygen saturation wa s 98% Chambers 2D ?Value ?Units (Range) ? Ascending Ao ?3.1 ?cm (2 - 3.5) ? Diastolic/Systolic Function ?Value ?Units (Range) ? MV E-wave Vmax ?0.8 ?m/sec ? MV A-wave Vmax ?0.9 ?m/sec ? MV E:A ratio ?0.9 ?ratio ? LV septal e' Vmax ?? 0.1 ?m/sec ? LV lateral e' Vmax ??0.1 ?m/sec ? LV E:e' septal ratio10 ? ratio ? LV E:e' lateral rati8 ?ratio ? Wall Motion: Segment Name ?Rest ? Peak ? Base-Anteroseptal ?? Normal ? Normal ? Base-Anterior ? Normal ? Normal ? Base-Anterolateral ??Normal ? Normal ? Base-Posterolateral Normal ? N ormal ? Base-Inferior ? Normal ? Normal ? Base-Inferoseptal ?? Normal ? Normal ? Mid-Anteroseptal ?Normal ? Normal ? Mid-Anterior ?Normal ? Normal ? Mid-Anterolateral ?? Hypokinetic ?Hy pokinetic ? Mid-Posterolateral ??Hypokinetic ?Hy pokinetic ? Mid-Inferior ?Normal ? Normal ? Mid-Inferoseptal ?Normal ? Normal ? [place]-Septal ? Normal ? Normal ? [place]-Anterior ? Normal ? Normal ? [place]-Lateral ?Normal ? Normal ? [place]-Inferior ? Normal ? Normal ? [place]-Tip ?Normal ? Normal ? This report has been electronically sign ed by: _ Bebo Dickens MD ? 03/11/2018 10:02 :13 Images reviewed and interpretation [facility] Cardiac Ultrasound Laboratory Procedure Note Bebo Dickens MD - 03/11/2018Formdomo lanier of this note might be different from the original. Procedure: Stress Echocardiogram Patient: VAZQUEZ Guillen (Age): [birth year](52y) Med Rec#: [id number] Sex: M Site Loc: [facility] Ht / Wt: 183(cm)/92(kg) Pt. Loc: Echo Lab BSA: 2.14 Study Date: 03/11/2018 Pt. Type: Tape: Referring: Eriberto Melgar Reading: Bebo Dickens ([id number]) Civil Defense Director: Ariel Bazzi Civil Defense Director: Nya Doss Nurse: Lacey Sánchez Diagnosis: *Pancreas transplant status (Z94.83) Stage BP HR Rest 141/79 73 Low dose 143/78 89 Peak 180/88 141 Recovery 144/92 86 SUMMARY: 1. BASELINE: The left ventricular chambe r size is normal. Left ventricular wall thickness is normal. Th ere is normal global left ventricular systolic function. Ejection fraction is estimated to be 65%. Cannot exclude a wall motion abnorm ality involving a small segment of the mid lateral wall, otherwise romain l segmental systolic function. Right ventricular chamber size and systo lic function are within normal limits. No hemodynamically significant v alve disease. EKG: normal sinus rhythm. 2. DOBUTAMINE STRESS: The patient achiev ed a maximum heart rate of 141 which is 83% of the maximum predicted he art rate (170 beats/min), peak rate pressure product [id number]. The patient did not express feelings of chest discomfort. There were single vent ricular premature beats. There were no significant ST segment changes. Echocardiographically, there was normal augmentation of all wall segments . 3. CONCLUSOIN: No evidence for ischemia at a diagnostic level of stress (by rate pressure product). Findings Rest: Study Quality: Adequate Left Ventricle: The left ventricular melony mber size is normal. Left ventricular wall thickness is norm al. There is normal global left ventricular systolic function. Ejection fraction is estimated to be 65%. Cannot exclude a wall motion abnormalit y involving the mid lateral wall segments. The left ventricular diastolic filling pattern is consistent with impaired LV relaxation. The mid anterolateral, and mid inferola teral wall segments are hypokinetic (score 2). Overall wallmotion score index is 1.13 Right Ventricle: Right ventricular chamb er size, wall thickness, and systolic function are within normal limi ts. Aortic Valve: The aortic valve is tricus pid. There is no evidence of aortic valve th ickening. There is no evidence of aortic valve st enosis. There is no evidence of aortic regurgit ation. Mitral Valve: The mitral valve appears n ormal in structure and function. There is trace mitral regurgitation pre sent. Tricuspid Valve: The tricuspid valve remi ears normal in structure and function. There is no evidence of tricuspid valve regurgitation present. Pericardium: The pericardium appears nor mal and there is no evidence of a pericardial effusion. Aorta: The ascending aorta is normal in size. Stress: EKG: normal sinus rhythm. The patient's oxygen saturation was 99% The patient is on an LUPE inhibitor. Misc: Other echo and stress findings as noted in report. Stress echo, limited spectral Doppler, color Doppler and ECG interpretation performed. Findings Low dose: Stress: EKG: normal sinus rhythm. Findings Peak: Predicted Values:The patient achieved a maximum heart rate of 141 which is 83% of the maximum predicted heart ra te (170 beats/min). The target heart rate was not achieved. Left Ventricle: Global left ventricular systolic function appears hyperdynamic. There are left ventricular segmental wa ll motion abnormalities present, as shown in the diagram below. The mid anterolateral and mid inferolat eral wall segments are unchanged. Overall wallmotion score index is 1.13 Stress: The peak dose of Dobutamine infu sed was 40 ug/kg/min. The patient was administered 1.0 mg of Atropine. The patient was administered 4 mg of Me toprolol during recovery. The patient performed hand squeezes to accelerate heart rate. The patient did not express feelings of chest discomfort. The blood pressure response was normal. There were single ventricular premature beats. There were no significant ST segment ch anges. This was a negative electrocardiographi c stress test for ischemia. This was a negative echocardiographic s tress test. There is no echocardiographic evidence of myocardial ischemia at this level of stress. Echocardiographic findings consistent w ith normal left ventricular function. EKG: Premature ventricular contractions noted. EKG: sinus tachycardia. The patient's oxygen saturation was Misc: The patient is alert and oriented x3. The procedure was explained to the hailey ent and the patient understands the procedure, A 20 gauge heplock was placed. An IV was placed in the patient's right arm. The IV site is dry and intact with no h ematoma. Normal saline was given. 250cc's NS Findings Recovery: Stress: EKG: normal sinus rhythm. The patient's oxygen saturation was 98% Chambers 2D Value Units (Range) Ascending Ao 3.1 cm (2 - 3.5) Diastolic/Systolic Function Value Units (Range) MV E-wave Vmax 0.8 m/sec MV A-wave Vmax 0.9 m/sec MV E:A ratio 0.9 ratio LV septal e' Vmax 0.1 m/sec LV lateral e' Vmax 0.1 m/sec LV E:e' septal ratio10 ratio LV E:e' lateral rati8 ratio Wall Motion: Segment Name Rest Peak Base-Anteroseptal Normal Normal Base-Anterior Normal Normal Base-Anterolateral Normal Normal Base-Posterolateral Normal Normal Base-Inferior Normal Normal Base-Inferoseptal Normal Normal Mid-Anteroseptal Normal Normal Mid-Anterior Normal Normal Mid-Anterolateral Hypokinetic Hypokineti c Mid-Posterolateral Hypokinetic Hypokinet ic Mid-Inferior Normal Normal Mid-Inferoseptal Normal Normal [place]-Septal Normal Normal [place]-Anterior Normal Normal [place]-Lateral Normal Normal [place]-Inferior Normal Normal [place]-Tip Normal Normal This report has been electronically sign ed by: _ Bebo Dickens MD 03/11/2018 10:02:13 Images reviewed and interpretation verif ied [facility] Cardiac Ultrasound Laboratory Eriberto Melgar MD ECHO ORDERABLES Performing Organization Address City/State/ZIP Code Phon e Number HEARTLAB SYSTEM documented in this encounter Visit Diagnoses Diagnosis 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 Aftercare following organ transplant History of ASCVD (arteriosclerotic cardi ovascular disease) Personal history of other diseases of ci rculatory system documented in this encounter Administered Medications Inactive Administered Medications - up to 3 most recent administrations Medication Order MAR Action Action Date Dose Rate Site atropine injection 1 mg Given 03/11/2018 9:11 AM EDT 1 mg 1 mg, Intravenous, ONCE, 1 dose, On Vanessa 03/11/18 at 0945, Echo Lab (Intra-Procedure), Routine DOBUTamine (2000 mcg/mL) 100 New Bag 03/11/2018 9:02 AM 40 mcg /kg/min 109.9 mL/hr mg in Dextrose 5% 50 mL EDT infusion 40 mcg/kg/min ? 91.6 kg (109.92 mL/hr, rounded to 109.9 mL/hr), Intravenous, ONCE, 1 dose, On Vanessa 18 at 0945, Warning Vesicant/Irritant Medication , Echo Lab (Intra-Procedure) metoprolol (LOPRESSOR) injection 4 mg Given 03/11/2018 9:14 AM EDT 4 mg 4 mg, Intravenous, ONCE, 1 dose, On Vanessa 18 at 0945, Echo Lab (Intra-Procedure), Routine documented in this encounter Care Teams Tent Worker Relationship Specialty Start Date End Date Anna Mullen MD PCP - General 12/03/10 [address] [place] [address] documented as of this encounter
--- OUTSIDE RECORDS SUMMARY | 2022-03-13 18:28 | XMS_ITS | Encounter Summary ---
:1965 Author Organization [facility] [place] [address] Care Team Providers Name Role Phone Anna Mullen MD Primary Care Provider Reason for Visit Reason Comments Medication Refill Encounter Details Date Type Department Care Team Description 03/05/2017 Refill Solid [facility] Trans[facility] at [facility] [place] [address] [place] [address] [phone] (Wo rk) Social History Tobacco Use Types [...] on filedocumented in this encounter Care Teams Administrative Assistant Front Desk Relationship Specialty Start Date End Date Anna Mullen MD PCP - General 12/03/10 [address] [place], [place] [id number] documented as of this encounter
--- OUTSIDE RECORDS SUMMARY | 2022-03-13 18:28 | XMS_ITS | Encounter Summary ---
:1965 Author Organization [facility] [place] [place] [address] Care Team Providers Name Role Phone Anna Mullen MD Primary Care Provider Reason for Visit Reason Comments Medication Refill Encounter Details Date Type Department Care Team Description 2015 Refill [facility] [place] [address] [place] [address] [phone] (Wo rk) Social History Tobacco Use Types [...] on filedocumented in this encounter Care Teams Clark Driver Relationship Specialty Start Date End Date Anna Mullen MD PCP - General 12/03/10 [address] [place] [address] documented as of this encounter
--- OUTSIDE RECORDS SUMMARY | 2022-03-13 18:28 | XMS_ITS | Encounter Summary ---
:1965 Author Organization [facility] [place] [address] Care Team Providers Name Role Phone Anna Mullen MD Primary Care Provider Encounter Details Date Type Department Care Team Description 08/05/2016 Abstract Solid Organ Transpla nt at [facility] Manoj Miller, [place] [address] Social History Tobacco Use Types Packs/Day [...] on filedocumented in this encounter Care Teams Tile Setter Relationship Specialty Start Date End Date Anna Mullen MD PCP - General 12/03/10 [address] [place], [place] [address] documented as of this encounter
--- OUTSIDE RECORDS SUMMARY | 2022-03-13 18:28 | XMS_ITS | Encounter Summary ---
:1965 Author Organization [facility] Address [address] [place] [address] Care Team Providers Name Role Phone Anna Mullen MD Primary Care Provider Reason for Visit Reason Comments Pancreas Transplant Follow-up Immunotherapy Encounter Details Date Type Department Care Team Description 08/06/2016 Office Visit Solid Organ Eriberto Melgar 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; Transplant at [facility] MD Arlyn Aftercare following organ transplant; [facility] unosuppression; Drive Depression, unspecified depression type [place], [place] [address] [place] [address] [phone] Social History Tobacco Use Types Packs/Day Years Used Date Never Smoker Smokeless Tobacco: Never Used Alcohol Use Standard Drinks/Week Comments No 0 (1 standard drink = 0.6 oz pure alcoho l) history of abuse, stopped 1996 Sex Assigned at Date Recorded Male 05/29/2021 11:28 PM EDT documented as of this encounter Last Filed Vital Signs Vital Sign Reading Time Taken Comments Blood Pressure 125/74 08/06/2016 10:29 AM EST Pulse 76 08/06/2016 10:29 AM EST Temperature 36.7 ??C (98 ??F) 08/06/2016 10:29 AM EST Respiratory Rate 12 08/06/2016 10:29 AM EST Oxygen Saturation 98% 08/06/2016 10:29 AM EST Inhaled Oxygen Concentration - - Weight 93.8 kg (206 lb 12.8 oz) 08/06/2016 10:29 AM EST Height - - Body Mass Index 28.05 02/22/2016 8:46 AM EDT documented in this encounter Progress Notes Eriberto Melgar MD - 08/06/2016 10:30 AM EST [facility] Transplant Nephrology Follow Up Reese Hsu [id number] 1965 Transplant ID: Patient: Reese Hsu Transplant Date: 08/28/13 Organ(s) Pancreas [place] organ diagnosis: Diabetes Mellitus - Type I (Pancreas) ?? 3 years Transplant ID: Mr. Reese Hsu is a White Not nor 50 y.o. male who is Status Post Pancreas transplantation. Mr. Reese Hsu presents to clinic for routine follow-up of care ofhis Pancreas transplantation. His chronic back issues have been addressed both by the [facility] and his Orthopedic surgeon. ?? Interim Hx: Some pain right groin x 2 weeks ? Related to exertion PCP changed Celexa to Effexor Drinks 5 L a day fluid intake Following was addressed with the patient: Healthcare maintenance for a transplant recipient: Immunizations (no live virus or modified bacterial vaccines) Prevnar 13 once in a lifetime Pneumovax 23 every 5 years Tdap every 10 years Annual flu shot Annual PCP exam Annual YULISSA and PSA for males over 40 needs one Every 5 year colonoscopy after age 50 Monthly self skin exam, daily spf 50 sunblock, annual derm consult if hx of skin cancer Annual eye exam uptodate Semi annual dental evaluation with prophylactic antibiotics Cardiac stress test after age 50, every 3 years for diabetics, every 5 for non diabetics [place] kidney ultrasound looking for renal cell CA, every 5 years post transplant Bone density assessment every 9-12 years post transplant Annual fasting lipid profile Annual PTH-Vit D3 assessment until normalized Annual 24 hour timed urine for creatinine, protein, calcium, phosphate, magnesium ROS: Denies fevers, chills, nausea, vomiting, diarrhea, abd pain, chest pain, sob. All other review of systems were neither positive or negative Medications: Prior to Admission medications Medication Sig Start Date End Date Taking? Authorizing Provider gabapentin (NEURONTIN) 300 mg Capsule Take 300 mg by mouth 2 times daily. Indications: 900 mg in AM and 100mg in PM Yes PROVIDER, HISTORICAL multivitamin Capsule Take 1 capsule by mouth daily. Yes PROVIDER, HISTORICAL traZODone (DESYREL) 50 mg Tablet TAKE ONE TABLET BY MOUTH EVERY EVENING 05/21/16 Yes Eriberto Melgar MD MAG-G 27 mg (500 mg) Tablet TAKE ONE TABLET BY MOUTH EVERY DAY NEEDED 04/04/16 Yes Eriberto Melgar MD CELLCEPT 250 mg Capsule TAKE TWO CAPSULES BY MOUTH TWICE A DAY 03/12/16 Yes Eriberto Melgar MD PROGRAF 1 mg Capsule TAKE TWO CAPSULES BY MOUTH TWICE A DAY 02/29/16 Yes Eriberto Melgar MD pantoprazole (PROTONIX) 40 mg Tablet, Delayed Release (E.C.) Take 40 mg by mouth 2 times daily. Yes PROVIDER, HISTORICAL psyllium 3.5 gram Powder in Packet Take 1 packet by mouth daily. 09/01/15 Yes Robert Bhgaat MD ondansetron (ZOFRAN) 8 mg Tablet Take 1 tablet by mouth every 8 hours as needed for Nausea. 08/30/15Yes Iraj Keller MD aspirin 81 mg Tablet, Chewable Take 81 mg by mouth daily. Yes PROVIDER, HISTORICAL lisinopril (PRINIVIL;ZESTRIL) 20 mg Tablet Take 20 mg by mouth daily. Yes PROVIDER, HISTORICAL levothyroxine (SYNTHROID) 175 mcg tablet Take 175 mcg by mouth daily. Yes PROVIDER, HISTORICAL sildenafil (VIAGRA) 100 mg tablet Take 1 tablet by mouth as needed for Erectile Dysfunction. 90 day supply Dx code :250.60 09/14/12 Yes Una Lassiter APRN acetaminophen (TYLENOL) 325 mg tablet Take 2 tablets by mouth every 4 hours as needed (Pain, Fever. if oral temperature greater than 38.5 Centigrade). Patient not taking: Reported on 08/06/2016 09/02/13 Lonnie Alarcon MD Allergies / ADRs: Allergies Allergen Reactions ??? Nexium [Esomeprazole Magnesium] Diarrhea Any acid reflux medication causes severe diarrhea ??? Prilosec [Omeprazole Magnesium] Diarrhea ??? Reglan [Metoclopramide Hcl] TD ??? Simvastatin PHYSICAL EXAM: Vitals: 08/06/16 1029 BP: 125/74 Pulse: 76 Resp: 12 Temp: 36.7 ??C (98 ??F) Gen - AAO x 3 in NAD [...] for REESE HSU ( ) as of 08/06/2016 10:34 Ref. Range 08/06/2016 09:33 08/06/2016 09:36 WBC Latest Ref Range: 4.0 - 9.5 x10(3)/mcL 9.2 RBC Latest Ref Range: 4.58 - 5.54 x10(6)/mcL 4.86 Hemoglobin Latest Ref Range: 13.7 - 16.5 gm/dL 14.2 Hematocrit Latest Ref Range: 40.5 - 48.5 % 42.1 MCV Latest Ref Range: 82.9 - 93.1 fL 86.6 MCH Latest Ref Range: 27.5 - 32.1 pg 29.2 MCHC Latest Ref Range: 32.0 - 35.7 gm/dL 33.7 RDWSD Latest Ref Range: 36.0 - 45.0 fL 38.8 RDWCV Latest Ref Range: 11.4 - 13.8 % 12.4 Platelets Latest Ref Range: 145 - 357 x10(3)/mcL 278 MPV Latest Ref Range: 7.6 - 12.9 fL 10.0 nRBC % Auto Latest Units: % 0.0 nRBC Abs Auto Latest Ref Range: 0.000 - 0.000 x10(3)/mcL 0.000 Neutr Abs (ANC) Latest Ref Range: 1.70 - 6.10 x10(3)/mcL 5.21 Neutrophils % Latest Units: % 56.4 Immature Gran % Latest Units: % 0.60 Lymphocytes % Latest Units: % 33.6 Monocytes % Latest Units: % 7.5 Eosinophils % Latest Units: % 1.4 Basophils % Latest Units: % 0.5 Kym Gran Abs Latest Ref Range: 0.00 - 0.04 x10(3)/mcL 0.06 (H) Lymphocytes Abs Latest Ref Range: 0.9 - 3.2 x10(3)/mcL 3.1 Monocyte Abs Latest Ref Range: 0.3 - 0.9 x10(3)/mcL 0.7 Eosinophils Abs Latest Ref Range: 0.0 - 0.4 x10(3)/mcL 0.1 Basophils Abs Latest Ref Range: 0.0 - 0.1 x10(3)/mcL 0.0 Sodium Latest Ref Range: 135 - 145 mmol/L 133 (L) Potassium Latest Ref Range: 3.5 - 5.0 mmol/L 4.5 Chloride Latest Ref Range: 98 - 107 mmol/L 93 (L) CO2 Latest Ref Range: 22 - 31 mmol/L 25 Anion Gap Latest Ref Range: 5 - 15 mmol/L 15 BUN Latest Ref Range: 10 - 20 mg/dL 15 Creatinine Latest Ref Range: 0.80 - 1.50 mg/dL 1.09 Estimated GFR Latest Ref Range: >=60 >60 Glucose Fasting Latest Ref Range: 65 - 99 mg/dL 105 (H) Calcium Latest Ref Range: 8.5 - 10.5 mg/dL 9.5 Magnesium Latest Ref Range: 0.69 - 1.07 mmol/L 0.71 Hemoglobin A1C Latest Ref Range: 4.3 - 5.6 % 5.4 Est Avg Gluc Latest Units: mg/dL 108 Phosphorus Latest Ref Range: 2.5 - 4.5 mg/dL 3.0 Uric Acid Latest Ref Range: 3.5 - 8.5 mg/dL 6.9 Total Protein Latest Ref Range: 6.1 - 8.0 gm/dL 7.7 Albumin Latest Ref Range: 3.2 - 5.2 gm/dL 4.9 Total Bilirubin Latest Ref Range: 0.2 - 1.3 mg/dL 1.2 Bili, Direct Latest Ref Range: 0.0 - 0.3 mg/dL 0.2 Alk Phos Latest Ref Range: 40 - 120 unit/L 128 (H) AST Latest Ref Range: 0 - 39 unit/L 25 ALT Latest Ref Range: 0 - 55 unit/L 22 Amylase Latest Ref Range: 28 - 100 unit/L 55 Lipase Latest Ref Range: 0 - 60 unit/L 16 Chol, Total Latest Ref Range: <=239 mg/dL 147 HDL Latest Ref Range: >=40 mg/dL 43 Chol/HDL Ratio Latest Units: ratio 3.4 Triglycerides Latest Ref Range: <=199 mg/dL 161 LDL Cholesterol Latest Ref Range: <=190 mg/dL 72 Lipid Interpretation Unknown See Note PTH Latest Ref Range: 15 - 65 pg/mL 64 Color UA Latest Ref Range: Yellow Yellow Appearance UA Latest Ref Range: Clear Clear Spec Muir UA Latest Ref Range: 1.002 - 1.030 1.010 pH UA Latest Ref Range: 5.0 - 8.0 5.0 Protein UA Latest Ref Range: Negative mg/dL Negative Glucose UA Latest Ref Range: Negative mg/dL Negative Ketones UA Latest Ref Range: Negative mg/dL Negative Bilirubin UA Latest Ref Range: Negative mg/dL Negative Urobilinogen UA Latest Ref Range: Normal mg/dL Normal Blood UA Latest Ref Range: Negative mg/dL Negative Leukocytes UA Latest Ref Range: Negative mcL Negative Nitrite UA Latest Ref Range: Negative Negative WBC UA Latest Ref Range: 0 - 3 /HPF <1 RBC UA Latest Ref Range: 0 - 3 /HPF <1 Culture Reflexed Unknown No Impression/ Plan: Transplant Status S/p panc transplant 3 years out, stable graft function Depression meds: on Effexor ?? Immunosuppression Dual therapy continue that for now Prograf 2+2 Cellcept 500 bid ?? PO4/Mg On mg supplement daily ?? Hypertension Stable ?? All age appropriate and post-transplant, routine health maintenance tests and screenings are strongly recommended. ?? He needs prostate PSA and rectal exam All age appropriate and post-transplant, routine health maintenance tests and screenings are strongly recommended. These include the above (noting that the time intervals are different than that of thenon-transplant community,) but are not limited to, the for mentioned. Follow up: 6 months with repeat labs Seen and Discussed w/ Dr. Talia Garcia MD Nephrology fellow Pager # [phone] I reviewed all of the above findings and assessment of Dr. Garcia edited the above note to reflect myassessment and examination and formulated the recommendations which accurately reflect mine. Crys Mckay RD - 08/06/2016 10:30 AM EST Patient is 3 years s/p pancreas transplant on 08/28/2013. Patient's blood chemistries and weight areexcellent. Patient has no questions/concerns. He is feeling very well. Follow up as needed or advised by MD or after evaluating future labs and weight. documented in this encounter Plan of Treatment Not on filedocumented as of this encounter Results (ABNORMAL) Vitamin D, 25-Hydroxy (08/06/2016 9:36 AM EST) athologist Signature 25-OH Vit D 29 (L) 30 - 100 [facility] Total ng/mL [facility] Comment: Deficient <10 ng/mL Insufficient 10 to 29 ng/mL Sufficient 30 to 100 ng/mL Potential Intoxication >100 ng/mL According to the [place] National Osteoporosi s Foundation, Vitamin D concentrations >30 ng/mL are sufficient to protect bone health. ??The National Kidney Foundation has similarly stated that pat ients with Vitamin D concentrations <30ng/mL should be considered to be insu fficient or deficient. http://NPM/DHnatlkidneyfoundat ion http://NPM/DHMCVitD The [employer] Vitamin D Immunoassay detec ts both 25-OH Vitamin D2 and 25-OH Vitamin D3, but only a total Vitamin D c oncentration is reported. Specimen Anatomical Collection Method Collection Time Receive d Time (Source) Location / / Volume Laterality Blood specimen 08/06/2016 9:36 AM 016 9:43 (specimen) EST AM EST Resulting Agency Comment Spec In Lab Eriberto Melgar MD CHEMISTRY ORDERABLES Performing Organization Address City/State/[place] [address] Uric acid (08/06/2016 9:36 AM EST) athologist Signature Uric Acid 6.9 3.5 - 8.5 [facility] mg/dL [facility] Specimen Anatomical Collection Method Collection Time Receive d Time (Source) Location / / Volume Laterality Blood specimen 08/06/2016 9:36 AM 016 9:43 (specimen) EST AM EST Resulting Agency Comment Spec In Lab Eriberto Melgar MD CHEMISTRY ORDERABLES Performing Organization Address City/[facility]/ZIP Code Phon e Number [address] Tacrolimus level (08/06/2016 9:36 AM EST) P athologist Signature Tacrolimus Lvl 8.7 ng/mL [facility] Comment: Trough therapeutic: ??5-15 ng/mL Performed by ultra-performance liquid ch romatography tandem mass spectrometry (UPLCMS/MS). Specimen Anatomical Collection Method Collection Time Receive d Time (Source) Location / / Volume Laterality Blood specimen 08/06/2016 9:36 AM 016 (specimen) EST 10:38 AM EST Resulting Agency Comment Spec In Lab Eriberto Melgar MD CHEMISTRY ORDERABLES Performing Organization Address City/[facility]/ZIP Code Phon e Number [address] PTH (08/06/2016 9:36 AM EST) P athologist Signature PTH 64 15 - 65 TIFFANI [place]ONA pg/mL [facility] Specimen Anatomical Collection Method Collection Time Receive d Time (Source) Location / / Volume Laterality Blood specimen 08/06/2016 9:36 AM 016 9:44 (specimen) EST AM EST Resulting Agency Comment Spec In Lab Eriberto Melgar MD CHEMISTRY ORDERABLES Performing Organization Address City/[facility]/[place] [address] Phosphorus (08/06/2016 9:36 AM EST) P athologist Signature Phosphorus 3.0 2.5 - 4.5 TI[facility] [place] mg/dL [facility] Specimen Anatomical Collection Method Collection Time Receive d Time (Source) Location / / Volume Laterality Blood specimen 08/06/2016 9:36 AM 016 9:43 (specimen) EST AM EST Resulting Agency Comment Spec In Lab Eriberto Melgar MD CHEMISTRY ORDERABLES Performing Organization Address City/[facility]/[place] [address] Magnesium (08/06/2016 9:36 AM EST) P athologist Signature Magnesium 0.71 0.69 - 1.07 [facility] mmol/L [facility] Specimen Anatomical Collection Method Collection Time Receive d Time (Source) Location / / Volume Laterality Blood specimen 08/06/2016 9:36 AM 016 9:43 (specimen) EST AM EST Resulting Agency Comment Spec In Lab Eriberto Melgar MD CHEMISTRY ORDERABLES Performing Organization Address City/State/ZIP Code Phon e Number [place] [phone] [facility] [address] Lipid Panel (08/06/2016 9:36 AM EST) Patholo gist Method Time Signature Chol, Total 147 <=239 TIFFANI mg/dL [facility] Triglycerides 161 <=199 [facility] mg/dL [facility] HDL 43 >=40 TIFF[place] mg/dL [facility] LDL Cholesterol 72 <=190 [facility] mg/dL [facility] Chol/HDL Ratio 3.4 ratio [facility] Lipid See Note TIFFANI Interpretation [facility] Comment: Lipid management should be guided by a p atient? s ASCVD risk, goals and preferences. ACC/AHA Guidelines recommend high intens ity statin if clinical ASCVD or LDL greater than or equal to 190 mg/dL. http://circ.ahajournals.org/content/dusty y/.cir.9192224597.11586.7a Adults aged 40-75 with LDL 70-189 mg/dL should have their 10 year ASCVD risk estimated with the ACC/AHA ASCVD risk es timator http://tools.acc.org/RHUAL-Brwn-Hzorixmp r/ Statin should be discussed if risk [...] Location / / Volume Laterality Blood specimen 08/06/2016 9:36 AM 016 9:43 (specimen) EST AM EST Resulting Agency Comment Spec In Lab Eriberto Melgar MD CHEMISTRY ORDERABLES Performing Organization Address City/[facility]/ZIP Code Phon e Number [address] Lipase (08/06/2016 9:36 AM EST) P athologist Signature Lipase 16 0 - 60 [facility] unit/L [facility] Specimen Anatomical Collection Method Collection Time Receive d Time (Source) Location / / Volume Laterality Blood specimen 08/06/2016 9:36 AM 016 9:43 (specimen) EST AM EST Resulting Agency Comment Spec In Lab Eriberto Melgar MD CHEMISTRY ORDERABLES Performing Organization Address City/[facility]/ZIP Code Phon e Number [address] Lavender Tube HOLD (08/06/2016 9:36 AM EST) Patholo gist Method Time Signature Lavender Hold Sample in [facility] LABORATORY Specimen Anatomical Collection Method Collection Time Receive d Time (Source) Location / / Volume Laterality Blood specimen 08/06/2016 9:36 AM 016 9:44 (specimen) EST AM EST Eriberto Melgar MD HEMATOLOGY ORDERABLES Performing Organization Address City/[facility]/ZIP Code Phon e Number [address] Hemoglobin A1c (08/06/2016 9:36 AM EST) P athologist Signature Hemoglobin A1C 5.4 4.3 - 5.6 [facility] Comment: Reference Range: 4.3 [...] 1, S67-74 Est Avg Gluc 108 mg/dL [facility] Comment: eAG equivalents for HbA1c percentages: HbA1c(%) ?eAG(mg/dL) 6.0 ?126 6.5 ?140 7.0 ?154 7.5 ?169 8.0 ?183 8.5 ?197 9.0 ?212 9.5 ?226 10.0 ? 240 Limitations: The eAG calculation has not been validated on women, individuals below 18 years old and above 70 years old, and individuals with hemoglobinopathies. Additional resources are available on [facility] website: [email or web address].DYNAGENT SOFTWARE SL/MCadacalc Edinson GRISSOM, Nathaniel J, Ari R, et al. ??Tr anslating the A1C assay into estimated average glucose values. ??Diabetes Care 2008:31(8):1668-5910. Specimen Anatomical Collection Method Collection Time Receive d Time (Source) Location / / Volume Laterality Blood specimen 08/06/2016 9:36 AM 016 9:43 (specimen) EST AM EST Resulting Agency Comment Spec In Lab Eriberto Melgar MD CHEMISTRY ORDERABLES Performing Organization Address City/State/[place] [address] Gold Tube HOLD (08/06/2016 9:36 AM EST) athologist Signature Gold Hold Sample in [facility] lab. [facility] Specimen Anatomical Collection Method Collection Time Receive d Time (Source) Location / / Volume Laterality Blood specimen 08/06/2016 9:36 AM 016 9:43 (specimen) EST AM EST Eriberto Melgar MD CHEMISTRY ORDERABLES Performing Organization Address City/State/[place] [address] (ABNORMAL) CMP w/fasting Glucose (08/06/2016 9:36 AM EST) athologist Signature Glucose 105 (H) 65 - 99 [facility] Fasting mg/dL [facility] Comment: ?Fasting* Glucose Interpretive C riteria [...] of Diabetes Mellitus, Position Statement from the [place] Diabetes Association. ??Diabete s Care, Volume 33, Supplement 1, Aug 2009 BUN 15 10 - 20 mg/dL [facility] Creatinine 1.09 0.80 - 1.50 mg/dL [facility] Comment: Please note that the pediatric reference intervals supplied above were not validated at [facility]. Results from pediatri c patients should be interpreted in conjunction to the patient's age, height and muscle mass. Sodium 133 (L) 135 - 145 mmol/L [facility] Potassium 4.5 3.5 - 5.0 mmol/L [facility] Comment: Please note: ??Patients with WBC >100,00 0 may have falsely elevated Potassium levels. ??For accurate Potassium quantif ication in these patients send serum separator tube (gold top) for subsequent determinations. ??Contact the Clinical Chemistry Laboratory if there are any qu estions. Chloride 93 (L) 98 - 107 mmol/L [facility] CO2 25 22 - 31 mmol/L [facility] Anion Gap 15 5 - 15 mmol/L [facility] Calcium 9.5 8.5 - 10.5 mg/dL [facility] Total Protein 7.7 6.1 - 8.0 gm/dL [facility] Albumin 4.9 3.2 - 5.2 gm/dL [facility] AST 25 0 - 39 unit/L [facility] ALT 22 0 - 55 unit/L [facility] Alk Phos 128 (H) 40 - 120 unit/L [facility] Total Bilirubin 1.2 0.2 - 1.3 mg/dL [facility] Bili, Direct 0.2 0.0 - 0.3 mg/dL [facility] Estimated GFR >60 >=60 [facility] Comment: This estimated GFR (eGFR) value was calc ulated using the MDRD equation which has been validated on patients between t he ages of 18 and 70. The MDRD should not be used to assess kidney function in patients < 18 years of age or in patients with extremes of body mass, or in patients with acute kidney failure. This value should be multiplied by 1.2 f or patients. For further information please copy and past e the following links into your internet browser. http://NPM/DHnkdep http://NPM/DHMCnkf Specimen Anatomical Collection Method Collection Time Receive d Time (Source) Location / / Volume Laterality Blood specimen 08/06/2016 9:36 AM 016 9:43 (specimen) EST AM EST Resulting Agency Comment Spec In Lab Eriberto Melgar MD CHEMISTRY ORDERABLES Performing Organization Address City/State/[place] [address] Amylase (08/06/2016 9:36 AM EST) athologist Signature Amylase 55 28 - 100 [facility] unit/L [facility] Specimen Anatomical Collection Method Collection Time Receive d Time (Source) Location / / Volume Laterality Blood specimen 08/06/2016 9:36 AM 016 9:43 (specimen) EST AM EST Resulting Agency Comment Spec In Lab Eriberto Melgar MD CHEMISTRY ORDERABLES Performing Organization Address City/[facility]/ZIP Code Phon e Number [address] 1,25-dihydroxycholecalciferol (08/06/2016 9:36 AM EST) athologist [facility] Vit D ,25 52 18 - 64 [facility] pg/mL [facility] Comment: ADDITIONAL INFORMATIO N This test was developed and its performa nce characteristics determined by [facility] in a manner co nsistent with CLIA requirements. This test has not been gene ared or approved by the U.S. Food and Drug Administration. Test Performed by: [address] [address] Bacteriology Teacher: Dung Buenrostro II, M.D., Ph.D. Specimen Anatomical Collection Method Collection Time Receive d Time (Source) Location / / Volume Laterality Blood specimen 08/06/2016 9:36 AM 016 (specimen) EST 11:26 AM EST Resulting Agency Comment Spec In Lab Eriberto Melgar MD CHEMISTRY ORDERABLES Performing Organization Address City/State/ZIP Code Phon e Number [address] Protein/Creatinine Ratio, urine (08/06/2016 9:34 AM EST) athologist Signature U Creatinine 69 mg/dL [facility] U Protein Ran <6 0 - 12 [facility] Prot/Cre Ratio <0.1 ratio [facility] Specimen Anatomical Collection Method Collection Time Receive d Time (Source) Location / / Volume Laterality Urine specimen 08/06/2016 9:34 AM 9:45 (specimen) EST AM EST Resulting Agency Comment Spec In Lab Eriberto Melgar MD URINE ORDERABLES Performing Organization Address City/[facility]/ZIP Code Phon e Number [address] Phosphorus, urine, random (08/06/2016 9:34 AM EST) P athologist Signature U Phosphorus <3.0 mg/dL [facility] Specimen Anatomical Collection Method Collection Time Receive d Time (Source) Location / / Volume Laterality Urine specimen 08/06/2016 9:34 AM 9:45 (specimen) EST AM EST Resulting Agency Comment Spec In Lab Eriberto Melgar MD URINE ORDERABLES Performing Organization Address [facility]/ZIP [facility] Phon e Number [address] Calcium Creatinine Ratio, random urine (08/06/2016 9:34 AM EST) P athologist Signature U Calcium 2.0 mg/dL [facility] U Creatinine 69 mg/dL [facility] Ca/Cre Ratio 0.03 ratio [facility] Specimen Anatomical Collection Method Collection Time Receive d Time (Source) Location / / Volume Laterality Urine specimen 08/06/2016 9:34 AM 9:45 (specimen) EST AM EST Resulting Agency Comment Spec In Lab Eriberto eMlgar MD URINE ORDERABLES Performing Organization Address City/[facility] Phon e Number [address] Urinalysis with reflex Culture (08/06/2016 9:33 AM EST) Patholo gist Method Time Signature Glucose UA Negative Negative [facility] mg[facility]dL [facility] Protein UA Negative Negative [facility] mg/dL [facility] Bilirubin UA Negative Negative [facility] mg/dL [facility] Comment: Clinical correlation required for positi ve Urine Bilirubin results as false positive may occur with some drugs and d rug related products. If a false positive is suspected a serum total bili sinha should be considered if clinically indicated. Urobilinogen UA Normal Normal mg/dL [facility] pH UA 5.0 5.0 - 8.0 [facility] Blood UA Negative Negative mg/dL [facility] Ketones UA Negative Negative mg/dL [facility] Nitrite UA Negative Negative [facility] Leukocytes UA Negative Negative [facility] Appearance UA Clear Clear [facility] Spec Muir UA 1.010 1.002 - 1.030 [facility] Color UA Yellow Yellow [facility] RBC UA <1 0 - 3 /HPF [facility] WBC UA <1 0 - 3 /HPF [facility] Culture Reflexed No [facility] Specimen (Source) Anatomical Collection Method Collection Time Re ceived Time Location / / Volume Laterality Urine specimen 08/06/2016 9:33 08/06/2016 9:45 obtained by clean AM EST AM EST catch procedure (specimen) Resulting Agency Comment Spec In Lab Eriberto Melgar MD URINE ORDERABLES Performing Organization Address City/[facility]/ZIP Code Phon e Number [address] Uric acid, urine, 24 hour (08/06/2016 9:30 AM EST) P athologist Signature U24 Uric Conc 11.4 mg/dL [facility] U24 Uric Calc 0.40 0.25 - [facility] [address] [facility] gm/24hr [facility] Specimen Anatomical Collection Method Collection Time Receive d Time (Source) Location / / Volume Laterality Urine specimen 08/06/2016 9:30 AM 016 (specimen) EST 10:06 AM EST Resulting Agency Comment Spec In Lab Eriberto Melgar MD URINE ORDERABLES Performing Organization Address City/State/ZIP Code Phon e Number [address] (ABNORMAL) Protein, urine, 24 hour (08/06/2016 9:30 AM EST) Patholo gist Method Time Signature U24 Prot Conc <6 <=80 mg/dL [facility] U24 Prot Calc <0.21 (H) <=0.[address] LABORATORY Specimen Anatomical Collection Method Collection Time Receive d Time (Source) Location / / Volume Laterality Urine specimen 08/06/2016 9:30 AM 016 (specimen) EST 10:05 AM EST Resulting Agency Comment Spec In Lab Eriberto Melgar MD URINE ORDERABLES Performing Organization Address City/[facility]/ZIP Code Phon e Number [address] Phosphorus, urine, 24 hour (08/06/2016 9:30 AM EST) P athologist Signature U24 Phos Conc 14.3 mg/dL [facility] U24 Phos Calc 0.5 0.4 - 1.3 [facility]/[address] [place] [address] LABORATORY Specimen Anatomical Collection Method Collection Time Receive d Time (Source) Location / / Volume Laterality Urine specimen 08/06/2016 9:30 AM 016 (specimen) EST 10:05 AM EST Resulting Agency Comment Spec In Lab Eriberto Melgar MD URINE ORDERABLES Performing Organization Address City/[facility]/ZIP Code Phon e Number [address] Creatinine, urine, 24 hour (08/06/2016 9:30 AM EST) P athologist Signature U24 Creat Conc 32 mg/dL [facility] U24 Creat Calc 1.12 0.80 - [facility] [address] LABOR[address] Specimen Anatomical Collection Method Collection Time Receive d Time (Source) Location / / Volume Laterality Urine specimen 08/06/2016 9:30 AM 016 (specimen) EST 10:05 AM EST Resulting Agency Comment Spec In Lab Eriberto Melgar MD URINE ORDERABLES Performing Organization Address City/[facility]/[place] [address] (ABNORMAL) Creatinine Clearance, urine, 24 hour (08/06/2016 9:30 AM EST) P athologist Signature Creat 71 (L) 90 - 139 [facility] Clearance mL/min [facility] U24 Creat Conc 32 mg/dL [facility] U24 Creat Calc 1.12 0.80 - [facility] [address] [facility] gm/24hr [facility] Specimen Anatomical Collection Method Collection Time Receive d Time (Source) Location / / Volume Laterality Urine specimen 08/06/2016 9:30 AM 016 (specimen) EST 10:05 AM EST Resulting Agency Comment Spec In Lab Eriberto Melgar MD URINE ORDERABLES Performing Organization Address City/State/[place] [address] Calcium, urine, 24 hour (08/06/2016 9:30 AM EST) athologist Signature U24 Ca Conc 1.5 mg/dL [facility] U24 Ca Calc 52.5 50.0 - [facility] [address] [facility] mg/24hr [facility] Comment: Reference Range: 50.0-300.0 mg/ 24 hour based on diet. 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
--- OUTSIDE RECORDS SUMMARY | 2022-03-13 18:28 | XMS_ITS | Encounter Summary ---
:1965 Author Organization [facility] [place] [address] Care Team Providers Name Role Phone Anna Mullen MD Primary Care Provider Encounter Details Date Type Department Care Team Description 02/22/2016 Laboratory Lab 3L [facility] Pancreas replac ed by transplant; Appointment [facility] [place] [address] Social History Tobacco Use Types [...] Name Priority Date/Time Associated Diagnosis Comme nts PROTEIN/CREATININE STAT 02/22/2016 7:54 Pancreas replaced b y Results for this RATIO, URINE AM EDT transplant procedure are in Need for prophylactic the re sults immunotherapy section. URINALYSIS WITH STAT 02/22/2016 7:54 Pancreas replaced by R esults for this REFLEX CULTURE AM EDT transplant procedure are in Need for prophylactic the re sults immunotherapy section. HEMOGRAM STAT 02/22/2016 7:48 Pancreas replaced by Resu lts for this AM EDT transplant procedure are in Need for prophylactic the re sults immunotherapy section. DIFFERENTIAL, STAT 02/22/2016 7:48 Pancreas replaced by Res ults for this AUTOMATED AM EDT transplant procedure are in Need for prophylactic the re sults immunotherapy section. TACROLIMUS LEVEL STAT 02/22/2016 7:48 Pancreas replaced by Results for this AM EDT transplant procedure are in Need for prophylactic the re sults immunotherapy section. RETICULOCYTE COUNT STAT 02/22/2016 7:48 Pancreas replaced b y Results for this AM EDT transplant procedure are in Need for prophylactic the re sults immunotherapy section. CBC (WITH DIFF) STAT 02/22/2016 7:48 Pancreas replaced by AM EDT transplant Need for prophylactic immunotherapy URIC ACID STAT 02/22/2016 7:48 Pancreas replaced by Resu lts for this AM EDT transplant procedure are in Need for prophylactic the re sults immunotherapy section. PHOSPHORUS STAT 02/22/2016 7:48 Pancreas replaced by Resu lts for this AM EDT transplant procedure are in Need for prophylactic the re sults immunotherapy section. MAGNESIUM STAT 02/22/2016 7:48 Pancreas replaced by Resu lts for this AM EDT transplant procedure are in Need for prophylactic the re sults immunotherapy section. LIPASE STAT 02/22/2016 7:48 Pancreas replaced by Resu lts for this AM EDT transplant procedure are in Need for prophylactic the re sults immunotherapy section. HEMOGLOBIN A1C STAT 02/22/2016 7:48 Pancreas replaced by Re sults for this AM EDT transplant procedure are in Need for prophylactic the re sults immunotherapy section. CHOLESTEROL, TOTAL STAT 02/22/2016 7:48 Pancreas replaced b y Results for this AM EDT transplant procedure are in Need for prophylactic the re sults immunotherapy section. AMYLASE STAT 02/22/2016 7:48 Pancreas replaced by Resu lts for this AM EDT transplant procedure are in Need for prophylactic the re sults immunotherapy section. COMPREHENSIVE STAT 02/22/2016 7:48 Pancreas replaced by Res ults for this METABOLIC PANEL AM EDT transplant procedure are in (NON-FASTING) Need for prophylactic the r esults immunotherapy section. documented in this encounter Results Protein/Creatinine Ratio, urine (02/22/2016 7:54 AM EDT) P athologist Signature U Creatinine 58 mg/dL [facility] U Protein Ran <6 0 - 12 [facility] mg/dL [facility] Prot/Cre Ratio <0.1 ratio [facility] Specimen Anatomical Collection Method Collection Time Receive d Time (Source) Location / / Volume Laterality Urine specimen 02/22/2016 7:54 AM 016 8:00 (specimen) EDT AM EDT Resulting Agency Comment Spec In Lab Eriberto Melgar MD URINE ORDERABLES Performing Organization Address City/State/[place] [address] Urinalysis with reflex Culture (02/22/2016 7:54 AM EDT) [facility] Method Time Signature Glucose UA Negative Negative [facility] mg/dL [facility] Protein UA Negative Negative [facility] mg/dL [facility] Bilirubin UA Negative Negative [facility] mg/dL [facility] Comment: Clinical correlation required for positi ve Urine Bilirubin results as false positive may occur with some drugs and d rug related products. If a false positive is suspected a serum total bili sinha should be considered if clinically indicated. Urobilinogen UA Normal Normal mg/dL [facility] pH UA 6.0 5.0 - 8.0 [facility] Blood UA Negative Negative mg/dL [facility] Ketones UA Negative Negative mg/dL [facility] Nitrite UA Negative Negative [facility] Leukocytes UA Negative Negative [facility] Appearance UA Clear Clear [facility] Spec [place] UA 1.006 1.002 - 1.030 [facility] Color UA Yellow Yellow [facility] RBC UA Not Present 0 - 3 /HPF [facility] WBC UA 1 0 - 3 /HPF [facility] Culture Reflexed No [facility] Specimen Anatomical Collection Method Collection Time Receive d Time (Source) Location / / Volume Laterality Urine specimen 02/22/2016 7:54 AM 016 8:01 (specimen) EDT AM EDT Resulting Agency Comment Spec In Lab Eriberto Melgar MD URINE ORDERABLES Performing Organization Address City/State/ZIP Code Phon e Number [place] [id number] Differential, Automated (02/22/2016 7:48 AM EDT) P athologist Signature Neutrophils % 48.5 % [facility] Neutr Abs (ANC) 3.32 1.50 - [facility] 6.30 [facility] x10(3)/[facility] LABORATORY Lymphocytes % 39.8 % [facility] Lymphocytes Abs 2.7 1.0 - 3.6 [facility] x10(3)/[facility] LABORATORY Monocytes % 9.2 % [facility] Monocyte Abs 0.6 0.2 - 1.0 [facility] x10(3)/[facility] LABORATORY Eosinophils % 1.9 % [facility] Eosinophils Abs 0.1 0.0 - 0.5 [facility] x10(3)/[facility] LABORATORY Basophils % 0.3 % [facility] Basophils Abs 0.0 0.0 - 0.2 [facility] x10(3)/[facility] LABORATORY Immature Gran % 0.30 % [facility] Comment: Immature granulocytes(IG's)percentage an d absolute count will include metamyelocytes, myelocytes, and promyelo cytes. Blood smears from CBCs yielding IG's will be scanned manually for concor dance. If this scan disagrees with the automated IG or if promyelocytes are not ed, a manual differential will be performed. Kym Gran Abs 0.02 0.00 - 0.05 x10(3)/[facility] Specimen Anatomical Collection Method Collection Time Receive d Time (Source) Location / / Volume Laterality Blood specimen 02/22/2016 7:48 AM 016 8:00 (specimen) EDT AM EDT Resulting Agency Comment Spec In Lab Eriberto Melgar MD HEMATOLOGY ORDERABLES Performing Organization Address City/State/[place] [address] (ABNORMAL) Hemogram (02/22/2016 7:48 AM EDT) P athologist Signature WBC 6.8 4.0 - 10.0 [facility] x10(3)/[facility] LABOR[facility]ORY RBC 4.77 4.63 - [facility] 6.08 [facility] x10(6)/[facility] LABORATORY Hemoglobin 13.9 13.7 - [facility] 17.5 gm/dL [facility] Hematocrit 39.8 (L) 40.0 - [facility] 51.0 % [facility] MCV 83.4 79.0 - [facility] 92.0 [facility] LABORATORY MCH 29.1 25.6 - [facility] 32.[address] [facility] MCHC 34.9 32.0 - [facility] 36.5 gm/dL [facility] Platelets 253 145 - 370 [facility] x10(3)/[facility] LABORATORY RDWSD 37.9 35.0 - [facility] 46.0 [facility] LABORATORY RDWCV 12.6 10.9 - [facility] 14.4 % [facility] MPV 10.2 9.0 - 12.0 [facility]OR[facility]ORY Specimen Anatomical Collection Method Collection Time Receive d Time (Source) Location / / Volume Laterality Blood specimen 02/22/2016 7:48 AM 016 8:00 (specimen) EDT AM EDT Resulting Agency Comment Spec In Lab Eriberto Melgar MD HEMATOLOGY ORDERABLES Performing Organization Address City/State/ZIP Code Phon e Number [address] Amylase (02/22/2016 7:48 AM EDT) P athologist Signature Amylase 52 28 - 100 [facility] unit/L [facility] Specimen Anatomical Collection Method Collection Time Receive d Time (Source) Location / / Volume Laterality Blood specimen 02/22/2016 7:48 AM 016 8:00 (specimen) EDT AM EDT Resulting Agency Comment Spec In Lab Eriberto Melgar MD CHEMISTRY ORDERABLES Performing Organization Address City/[facility]/ZIP Code Phon e Number [address] Lipase (02/22/2016 7:48 AM EDT) athologist Signature Lipase 21 0 - 60 [facility] unit/L [facility] Specimen Anatomical Collection Method Collection Time Receive d Time (Source) Location / / Volume Laterality Blood specimen 02/22/2016 7:48 AM 016 8:00 (specimen) EDT AM EDT Resulting Agency Comment Spec In Lab Eriberto Melgar MD CHEMISTRY ORDERABLES Performing Organization Address City/State/[place] [address] (ABNORMAL) Comprehensive metabolic panel (non-fasting) (02/22/2016 7:48 AM EDT) athologist Signature Glucose Lvl 114 65 - 199 [facility] mg/dL [facility] Comment: Diabetes: >=200 mg/dL plus symp toms BUN 15 10 - 20 mg/dL [facility] Creatinine 1.04 0.80 - 1.50 mg/dL [facility] Comment: Please note that the pediatric reference intervals supplied above were not validated at [facility]. Results from pediatri c patients should be interpreted in conjunction to the patient's age, height and muscle mass. Sodium 131 (L) 135 - 145 mmol/L [facility] Potassium 5.0 3.5 - 5.0 mmol/L [facility] Comment: Please note: ??Patients with WBC >100,00 0 may have falsely elevated Potassium levels. ??For accurate Potassium quantif ication in these patients send serum separator tube (gold top) for subsequent determinations. ??Contact the Clinical Chemistry Laboratory if there are any qu estions. Chloride 93 (L) 98 - 107 mmol/L [facility] CO2 26 22 - 31 mmol/L [facility] Anion Gap 12 5 - 15 mmol/L [facility] Calcium 9.5 8.5 - 10.5 mg/dL [facility] Total Protein 7.6 6.1 - 8.0 gm/dL [facility] Albumin 4.7 3.2 - 5.2 gm/dL [facility] AST 33 0 - 39 unit/L [facility] ALT 29 0 - 55 unit/L [facility] Alk Phos 119 40 - 120 unit/L [facility] Total Bilirubin 1.2 0.2 - 1.3 mg/dL [facility] Bili, Direct 0.2 0.0 - 0.3 mg/dL [facility] Estimated GFR >60 >=60 [facility] Comment: This estimated GFR (eGFR) [...] the following links into your internet browser. [email or web address] Specimen Anatomical Collection Method Collection Time Receive d Time (Source) Location / / Volume Laterality Blood specimen 02/22/2016 7:48 AM 016 8:00 (specimen) EDT AM EDT Resulting Agency Comment Spec In Lab Eriberto Melgar MD CHEMISTRY ORDERABLES Performing Organization Address City/[facility]/[place] [address] Magnesium (02/22/2016 7:48 AM EDT) P athologist Signature Magnesium 0.72 0.69 - 1.07 [facility] mmol/L [facility] Specimen Anatomical Collection Method Collection Time Receive d Time (Source) Location / / Volume Laterality Blood specimen 02/22/2016 7:48 AM 016 8:00 (specimen) EDT AM EDT Resulting Agency Comment Spec In Lab Eriberto Melgar MD CHEMISTRY ORDERABLES Performing Organization Address City/[facility]/ZIP Code Phon e Number [place] Phosphorus (02/22/2016 7:48 AM EDT) athologist Signature Phosphorus 3.3 2.5 - 4.5 [facility] mg/dL [facility] Specimen Anatomical Collection Method Collection Time Receive d Time (Source) Location / / Volume Laterality Blood specimen 02/22/2016 7:48 AM 016 8:00 (specimen) EDT AM EDT Resulting Agency Comment Spec In Lab Eriberto Melgar MD CHEMISTRY ORDERABLES Performing Organization Address City/State/ZIP Code Phon e Number [address] Uric acid (02/22/2016 7:48 AM EDT) athologist Signature Uric Acid 6.4 3.5 - 8.5 [facility] mg/dL [facility] Specimen Anatomical Collection Method Collection Time Receive d Time (Source) Location / / Volume Laterality Blood specimen 02/22/2016 7:48 AM 016 8:00 (specimen) EDT AM EDT Resulting Agency Comment Spec In Lab Eriberto Melgar MD CHEMISTRY ORDERABLES Performing Organization Address City/State/ZIP Code Phon e Number [address] Tacrolimus level (02/22/2016 7:48 AM EDT) athologist Signature Tacrolimus Lvl 6.5 ng/mL [facility] Comment: Trough therapeutic: 5-15 ng/mL Specimen Anatomical Collection Method Collection Time Receive d Time (Source) Location / / Volume Laterality Blood specimen 02/22/2016 7:48 AM 016 (specimen) EDT 11:50 AM EDT Resulting Agency Comment Spec In Lab Eriberto Melgar MD CHEMISTRY ORDERABLES Performing Organization Address City/State/[place] [address] Reticulocyte Count (02/22/2016 7:48 AM EDT) athologist Signature Retic Ct % 1.0 0.5 - 2.4 [facility] Retic Ct Abs 0.050 0.027 - [facility] 0.095 [facility] x10(6)/[facility] LABORATORY Immature Retic% 3.4 2.3 - 15.9 [facility] Reticulated Hgb 30.1 28.5 - [facility] 38.9 [facility] LABORATORY Plat Immature % 2.1 0.0 - 7.4 [facility] Specimen Anatomical Collection Method Collection Time Receive d Time (Source) Location / / Volume Laterality Blood specimen 02/22/2016 7:48 AM 016 8:00 (specimen) EDT AM EDT Resulting Agency Comment Spec In Lab Eriberto Melgar MD HEMATOLOGY ORDERABLES Performing Organization Address City/[facility]/ZIP Code Phon e Number [address] Cholesterol, total (02/22/2016 7:48 AM EDT) P athologist Signature Chol, Total 135 <=199 mg/dL [facility] Comment: Recommendations of the NCEP Adult Treatm ent Panel for the following risk cutoff thresholds for the [place] populatio n: Desirable: <200 mg/dL Borderline High: 200-239 mg/dL High: > or = 240 mg/dL Specimen Anatomical Collection Method Collection Time Receive d Time (Source) Location / / Volume Laterality Blood specimen 02/22/2016 7:48 AM 016 8:00 (specimen) EDT AM EDT Resulting Agency Comment Spec In Lab Eriberto Melgar MD CHEMISTRY ORDERABLES Performing Organization Address City/[facility]/[place] [address] (ABNORMAL) Hemoglobin A1c (02/22/2016 7:48 AM EDT) Analysis Performed At Patho logist Time Signature Hemoglobin A1C 5.7 (H) 4.3 - 5.6 [facility] Comment: Reference Range: 4.3 - [...] Mellitus, Diabetes Care 2013; 36: Suppl. 1, U97-01 Est Avg Gluc 117 mg/dL [facility] Comment: eAG equivalents for HbA1c percentages: HbA1c(%) ?eAG(mg/dL) 6.0 ?126 6.5 ?140 7.0 ?154 7.5 ?169 8.0 ?183 8.5 ?197 9.0 ?212 9.5 ?226 10.0 ? 240 Limitations: The eAG calculation has not been validated on women, individuals below 18 years old and above 70 years old, and individuals with hemoglobinopathies. Additional resources are available on [facility] website: [email or web address] CITYadacalc Edinson GRISSOM, Nathaniel J, Ari R, et al. ??Tr anslating the A1C assay into estimated average glucose values. ??Diabetes Care 2008:31(8):2499-4668. 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
--- OUTSIDE RECORDS SUMMARY | 2022-03-13 18:28 | XMS_ITS | Encounter Summary ---
:1965 Author Organization [facility] Address [address] [place] [address] Care Team Providers Name Role Phone Anna Mullen MD Primary Care Provider Reason for Visit Reason Comments Immunotherapy Pancreas Transplant Follow-up Encounter Details Date Type Department Care Team Description 02/22/2016 Office Visit Solid Organ Eriberto Melgar Need for pneumococcal vaccination (Primary Dx); Transplant at [facility] MD Arlyn 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; [facility] Negrita kingsley for prophylactic immunotherapy; Drive DR Chang following organ transplant [place] [id number] [place] [address] [phone] Social History Tobacco Use Types Packs/Day Years Used Date Never Smoker Smokeless Tobacco: Never Used Alcohol Use Standard Drinks/Week Comments No 0 (1 standard drink = 0.6 oz pure alcoho l) history of abuse, stopped 1996 Sex Assigned at Date Recorded Male 05/29/2021 11:28 PM EDT documented as of this encounter Last Filed Vital Signs Vital Sign Reading Time Taken Comments Blood Pressure 148/84 02/22/2016 8:46 AM EDT Pulse 68 02/22/2016 8:46 AM EDT Temperature - - Respiratory Rate - - Oxygen Saturation 99% 02/22/2016 8:46 AM EDT Inhaled Oxygen Concentration - - Weight 94.2 kg (207 lb 9.6 oz) 02/22/2016 8:46 AM EDT Height 182.9 cm (6') 02/22/2016 8:46 AM EDT Body Mass Index 28.16 02/22/2016 8:46 AM EDT documented in this encounter Progress Notes Marco Garcia MD - 02/22/2016 8:51 AM EDT [facility] Transplant Nephrology Follow Up Reese Hsu [id number] 1965 Transplant ID: Patient: Reese Hsu Transplant Date: 08/28/13 Organ(s) Pancreas [place] organ diagnosis: Diabetes Mellitus - Type I (Pancreas) 2.5 years Transplant ID: Mr. Reese Hsu is a White Not nor 50 y.o. male who is Status Post Pancreas transplantation. Mr. Reese Hsu presents to clinic for routine follow-up of care ofhis Pancreas transplantation. His chronic back issues have been addressed both by the Sp[facility] and his Orthopedic surgeon. Interim Hx: Last month was SOB and cough with phlegm so he went to ER Had pneumonia was given ABx ( most probably azithromycin) used it for 5 days. Last dose was 1 month ago Still have on and off cough since his PNA No fever had same symptoms she had left lung PNA His Depression is not improving. PCP wanted to change meds. He is on 40 mg daily of celexa for 10 years now, He believes it is not working anymore. Drinks 5 L a day fluid intake Healthcare maintenance for a transplant recipient: Immunizations (no live virus or modified bacterial vaccines) Prevnar 13 once in a lifetime needs one Pneumovax 23 every 5 years Tdap every [...] for diabetics, every 5 for non diabetics [place] kidney ultrasound looking for renal cell CA, [...] Start Date End Date Taking? Authorizing Provider psyllium 3.5 gram Powder in Packet Take 1 packet by mouth daily. 09/01/15 Robert Bhagat MD ondansetron (ZOFRAN) 8 mg Tablet Take 1 tablet by mouth every 8 hours as needed for Nausea. 08/30/15Iraj Keller MD esomeprazole (NEXIUM) 40 mg Capsule, Delayed Release(E.C.) Take 1 capsule by mouth daily. coul not tolerate other PPIs 08/22/15 08/21/16 Marco Garcia MD Magnesium Gluconate 27 mg (500 mg) Tablet Take 1 tablet by mouth daily as needed. 08/22/15 Marco Garcia MD PROGRAF 1 mg Capsule TAKE 2 CAPSULES BY MOUTH TWO TIMES A DAY 05/29/15 Eriberto Melgar MD traZODone (DESYREL) 50 mg Tablet TAKE ONE TABLET BY MOUTH EVERY EVENING 05/16/15 Eriberto Melgar MD CELLCEPT 250 mg Capsule TAKE TWO CAPSULES BY MOUTH TWICE A DAY 05/09/15 Eriberto Melgar MD PROVIDER, HISTORICAL aspirin 81 mg Tablet, Chewable Take 81 mg by mouth daily. PROVIDER, HISTORICAL lisinopril (PRINIVIL;ZESTRIL) 20 mg Tablet Take 20 mg by mouth daily. PROVIDER, HISTORICAL levothyroxine (SYNTHROID) 175 mcg tablet Take 175 mcg by mouth daily. PROVIDER, HISTORICAL traMADol (ULTRAM) 50 mg tablet Take 100 mg by mouth 2 times daily. 07/08/13 PROVIDER, HISTORICAL acetaminophen (TYLENOL) 325 mg tablet Take 2 tablets by mouth every 4 hours as needed (Pain, Fever. if oral temperature greater than 38.5 Centigrade). 09/02/13 Lonnie Alarcon MD sildenafil (VIAGRA) 100 mg tablet Take 1 tablet by mouth as needed for Erectile Dysfunction. 90 day supply Dx code :250.60 09/14/12 Una Lassiter APRN citalopram (CELEXA) 20 mg tablet Take 40 mg by mouth daily. PROVIDER, HISTORICAL Allergies / ADRs: Allergies Allergen Reactions ??? Nexium [Esomeprazole Magnesium] Diarrhea Any acid reflux medication causes severe diarrhea ??? Prilosec [Omeprazole Magnesium] Diarrhea ??? Reglan [Metoclopramide Hcl] TD ??? Simvastatin PHYSICAL EXAM: Vitals: 02/22/16 0846 BP: 148/84 Pulse: 68 Gen - AAO x 3 in NAD Skin - No exanthem. HEENT - Mucous membranes moist. Chest: Lungs clear to ausculatation w/o wheezes/ rhonchi/ crackles. Heart - S1 and S2 clear w/o murmur, gallop, or rub. JVP not elevated. Abd - Soft. + BS. No bruit. Non tender. No organomegaly. Scar chantelle is in middle Ext - Warm. No cyanosis. No dependent edema. Labs/ Imaging: Results for REESE HSU ( ) as of 02/22/2016 08:54 Ref. Range 08/31/2015 06:42 09/01/2015 05:21 09/07/2015 10:34 10/30/2015 07:55 02/22/2016 07:48 02/22/2016 07:54 WBC Latest Ref Range: 4.0 - 10.0 x10(3)/mcL 6.2 6.8 RBC Latest Ref Range: 4.63 - 6.08 x10(6)/mcL 4.34 (L) 4.77 Hemoglobin Latest Ref Range: 13.7 - 17.5 gm/dL 12.7 (L) 13.9 Hematocrit Latest Ref Range: 40.0 - 51.0 % 36.4 (L) 39.8 (L) MCV Latest Ref Range: 79.0 - 92.0 fL 83.9 83.4 MCH Latest Ref Range: 25.6 - 32.2 pg 29.3 29.1 MCHC Latest Ref Range: 32.0 - 36.5 gm/dL 34.9 34.9 RDWSD Latest Ref Range: 35.0 - 46.0 fL 39.1 37.9 RDWCV Latest Ref Range: 10.9 - 14.4 % 13.0 12.6 Platelets Latest Ref Range: 145 - 370 x10(3)/mcL 196 253 MPV Latest Ref Range: 9.0 - 12.0 fL 10.3 10.2 Plat Immature % Latest Ref Range: 0.0 - 7.4 % 2.[address] % Latest Ref Range: 0.5 - 2.4 % 1.[address] Abs Latest Ref Range: 0.027 - 0.095 x10(6)/mcL 0.050 Immature Retic% Latest Ref Range: 2.3 - 15.9 % 3.4 Reticulated Hgb Latest Ref Range: 28.5 - 38.9 pg 30.1 Neutr Abs (ANC) Latest Ref Range: 1.50 - 6.30 x10(3)/mcL 3.81 3.32 Neutrophils % Latest Units: % 60.9 48.5 Immature Gran % Latest Units: % 0.20 0.30 Lymphocytes % Latest Units: % 27.8 39.8 Monocytes % Latest Units: % 9.6 9.2 Eosinophils % Latest Units: % 1.0 1.9 Basophils % Latest Units: % 0.5 0.3 Kym Gran Abs Latest Ref Range: 0.00 - 0.05 x10(3)/mcL 0.01 0.02 Lymphocytes Abs Latest Ref Range: 1.0 - 3.6 x10(3)/mcL 1.7 2.7 Monocyte Abs Latest Ref Range: 0.2 - 1.0 x10(3)/mcL 0.6 0.6 Eosinophils Abs Latest Ref Range: 0.0 - 0.5 x10(3)/mcL 0.1 0.1 Basophils Abs Latest Ref Range: 0.0 - 0.2 x10(3)/mcL 0.0 0.0 Sodium Latest Ref Range: 135 - 145 mmol/L 134 (L) 133 (L) 131 (L) Potassium Latest Ref Range: 3.5 - 5.0 mmol/L 4.5 4.7 5.0 Chloride Latest Ref Range: 98 - 107 mmol/L 99 95 (L) 93 (L) CO2 Latest Ref Range: 22 - 31 mmol/L 21 (L) 25 26 Anion Gap Latest Ref Range: 5 - 15 mmol/L 14 13 12 BUN Latest Ref Range: 10 - 20 mg/dL 12 11 15 Creatinine Latest Ref Range: 0.80 - 1.50 mg/dL 0.99 1.01 1.04 Estimated GFR Latest Ref Range: >=60 >60 >60 >60 Glucose Lvl Latest Ref Range: 65 - 199 mg/dL 117 106 114 Calcium Latest Ref Range: 8.5 - 10.5 mg/dL 8.9 8.8 9.5 Magnesium Latest Ref Range: 0.69 - 1.07 mmol/L 0.72 Phosphorus Latest Ref Range: 2.5 - 4.5 mg/dL 3.3 Uric Acid Latest Ref Range: 3.5 - 8.5 mg/dL 6.4 Total Protein Latest Ref Range: 6.1 - 8.0 gm/dL 7.6 Albumin Latest Ref Range: 3.2 - 5.2 gm/dL 4.7 Total Bilirubin Latest Ref Range: 0.2 - 1.3 mg/dL 1.2 Bili, Direct Latest Ref Range: 0.0 - 0.3 mg/dL 0.2 Alk Phos Latest Ref Range: 40 - 120 unit/L 119 AST Latest Ref Range: 0 - 39 unit/L 33 ALT Latest Ref Range: 0 - 55 unit/L 29 Amylase Latest Ref Range: 28 - 100 unit/L 47 48 52 Lipase Latest Ref Range: 0 - 60 unit/L 20 19 21 U Protein Ran Latest Ref Range: 0 - 12 mg/dL <6 Chol, Total Latest Ref Range: <=199 mg/dL 135 Tacrolimus Lvl Latest Units: ng/mL 7.8 Color UA Latest Ref Range: Yellow Yellow Appearance UA Latest Ref Range: Clear Clear Spec [place] UA Latest Ref Range: 1.002 - 1.030 1.006 pH UA Latest Ref Range: 5.0 - [...] Latest Ref Range: 0 - 3 /HPF 1 RBC UA Latest Ref Range: 0 - 3 /HPF Not Present Culture Reflexed Unknown No Prot/Cre Ratio Latest Units: ratio <0.1 U Creatinine Latest Units: mg/dL 58 MRI ABDOMEN WWO CONTRAST Unknown Rpt MRI PELVIS WITH/WO CONTRAST Unknown Rpt Impression/ Plan: Transplant Status S/p panc transplant 2 1/2 years out, stable graft function PNA cough will be there for few months He can use little bit of salt as his Na is low We will get chest xray to make sure he does not have any residual Depression meds: Can use venlafaxine Effexor Immunosuppression Dual therapy continue that for now Prograf 2+2 Cellcept 500 bid PO4/Mg On mg supplement Hypertension Stable Infectious prophylaxis Takes valtrex for recurrent cold sores uses when he has skin break All age appropriate and post-transplant, routine health maintenance tests and screenings are strongly recommended. Follow up: 6 months with repeat labs 3 months Seen and Discussed w/ Dr. Talia Garcia MD Nephrology fellow Pager # [phone] I reviewed all of the above findings and assessment of Dr. Garcia, examined the patient and formulated the recommendations which accurately reflect mine. documented in this encounter Plan of Treatment Not on filedocumented as of this encounter Results XR Chest PA & Lateral (Generic) (02/22/2016 9:48 AM EDT) Anatomical Region Laterality Modality Chest N/A Digital Radiography Specimen (Source) Anatomical Location Collection Method / Collectio n Time Received Time / Laterality Volume Impressions 02/22/2016 9:50 AM EDT No pneumonia or other significant abnormality. Narrative 02/22/2016 9:50 AM EDT EXAMINATION: XR CHEST ROUTINE PA AND LATERAL CLINICAL HISTORY: pneumonia TECHNIQUE: Standing PA and lateral chest COMPARISON: 08/28/2013 FINDINGS: The lungs are clear. The cardial mediast inal silhouette and vaughn appear normal. No pleural effusion or significant bone abnormality is seen. Procedure Note Dung Kohler MD - 02/22/2016Formatt ing of this note might be different from the original. EXAMINATION: XR CHEST ROUTINE PA AND LAT ERAL CLINICAL HISTORY: pneumonia TECHNIQUE: Standing PA and lateral chest COMPARISON: 08/28/2013 FINDINGS: The lungs are clear. The cardial mediast inal silhouette and vaughn appear normal. No pleural effusion or significant bone abnormality is seen. IMPRESSION No pneumonia or other significant abnorm ality. Eriberto Melgar MD IMG DX ORDERABLES Protein/Creatinine Ratio, urine (02/22/2016 7:54 AM EDT) P athologist Signature U Creatinine 58 mg/dL [facility] U Protein Ran <6 0 - 12 [facility] mg/dL [facility] Prot/Cre Ratio <0.1 ratio [facility] Specimen Anatomical Collection Method Collection Time Receive d Time (Source) Location / / Volume Laterality Urine specimen 02/22/2016 7:54 AM 016 8:00 (specimen) EDT AM EDT Resulting Agency Comment Spec In Lab Eriberto Melgar MD URINE ORDERABLES Performing Organization Address City/State/[place] [address] Urinalysis with reflex Culture (02/22/2016 7:54 AM EDT) [facility] Method Time Signature Glucose UA Negative Negative [facility] mg/dL [facility] Protein UA Negative Negative [facility] mg/dL [facility] Bilirubin UA Negative Negative [facility] mg/dL [facility] Comment: Clinical correlation required for positi ve Urine Bilirubin results as false positive may occur with some drugs and d rug related products. If a false positive is suspected a serum total bili sinha should be considered if clinically indicated. Urobilinogen UA Normal Normal mg/dL [facility] pH UA 6.0 5.0 - 8.0 [facility] Blood UA Negative Negative mg/dL [facility] Ketones UA Negative Negative mg/dL [facility] Nitrite UA Negative Negative [facility] Leukocytes UA Negative Negative [facility] Appearance UA Clear Clear [facility] Spec [place] UA 1.006 1.002 - 1.030 [facility] Color UA Yellow Yellow [facility] RBC UA Not Present 0 - 3 /HPF [facility] WBC UA 1 0 - 3 /HPF [facility] Culture Reflexed No [facility] Specimen Anatomical Collection Method Collection Time Receive d Time (Source) Location / / Volume Laterality Urine specimen 02/22/2016 7:54 AM 016 8:01 (specimen) EDT AM EDT Resulting Agency Comment Spec In Lab Eriberto Melgar MD URINE ORDERABLES Performing Organization Address City/[facility]/ZIP Code Phon e Number [address] Amylase (02/22/2016 7:48 AM EDT) athologist Signature Amylase 52 28 - 100 [facility] Specimen Anatomical Collection Method Collection Time Receive d Time (Source) Location / / Volume Laterality Blood specimen 02/22/2016 7:48 AM 016 8:00 (specimen) EDT AM EDT Resulting Agency Comment Spec In Lab Eriberto Melgar MD CHEMISTRY ORDERABLES Performing Organization Address City/[facility]/ZIP Code Phon e Number [address] Lipase (02/22/2016 7:48 AM EDT) athologist Signature Lipase 21 0 - 60 [facility] Specimen Anatomical Collection Method Collection Time Receive d Time (Source) Location / / Volume Laterality Blood specimen 02/22/2016 7:48 AM 016 8:00 (specimen) EDT AM EDT Resulting Agency Comment Spec In Lab Eriberto Melgar MD CHEMISTRY ORDERABLES Performing Organization Address City/[facility] [place] [address] (ABNORMAL) Comprehensive metabolic panel (non-fasting) (02/22/2016 7:48 AM EDT) athologist Signature Glucose Lvl 114 65 - 199 [facility] mg/dL [facility] Comment: Diabetes: >=200 mg/dL plus symp toms BUN 15 10 - 20 mg/dL [facility] Creatinine 1.04 0.80 - 1.50 mg/dL [facility] Comment: Please note that the pediatric reference intervals supplied above were not validated at [facility]. Results from pediatri c patients should be interpreted in conjunction to the patient's age, height and muscle mass. Sodium 131 (L) 135 - 145 mmol/L [facility] Potassium 5.0 3.5 - 5.0 mmol/L [facility] Comment: Please note: ??Patients with WBC >100,00 0 may have falsely elevated Potassium levels. ??For accurate Potassium quantif ication in these patients send serum separator tube (gold top) for subsequent determinations. ??Contact the Clinical Chemistry Laboratory if there are any qu estions. Chloride 93 (L) 98 - 107 mmol/L [facility] CO2 26 22 - 31 mmol/L [facility] Anion Gap 12 5 - 15 mmol/L [facility] Calcium 9.5 8.5 - 10.5 mg/dL [facility] Total Protein 7.6 6.1 - 8.0 gm/dL [facility] Albumin 4.7 3.2 - 5.2 gm/dL [facility] AST 33 0 - 39 unit/L [facility] ALT 29 0 - 55 unit/L [facility] Alk Phos 119 40 - 120 unit/L [facility] Total Bilirubin 1.2 0.2 - 1.3 mg/dL [facility] Bili, Direct 0.2 0.0 - 0.3 mg/dL [facility] Estimated GFR >60 >=60 [facility] Comment: This estimated GFR (eGFR) value [...] the following links into your internet browser. [email or web address] Specimen Anatomical Collection Method Collection Time Receive d Time (Source) Location / / Volume Laterality Blood specimen 02/22/2016 7:48 AM 016 8:00 (specimen) EDT AM EDT Resulting Agency Comment Spec In Lab Eriberto Melgar MD CHEMISTRY ORDERABLES Performing Organization Address City/State/ZIP Code Phon e Number [address] Magnesium (02/22/2016 7:48 AM EDT) P athologist Signature Magnesium 0.72 0.69 - 1.07 [facility] [place] mmol/L [facility] Specimen Anatomical Collection Method Collection Time Receive d Time (Source) Location / / Volume Laterality Blood specimen 02/22/2016 7:48 AM 016 8:00 (specimen) EDT AM EDT Resulting Agency Comment Spec In Lab Eriberto Melgar MD CHEMISTRY ORDERABLES Performing Organization Address City/[facility]/ZIP Code Phon e Number [address] Phosphorus (02/22/2016 7:48 AM EDT) P athologist Signature Phosphorus 3.3 2.5 - 4.5 [facility] [place] mg/dL [facility] Specimen Anatomical Collection Method Collection Time Receive d Time (Source) Location / / Volume Laterality Blood specimen 02/22/2016 7:48 AM 016 8:00 (specimen) EDT AM EDT Resulting Agency Comment Spec In Lab Eriberto Melgar MD CHEMISTRY ORDERABLES Performing Organization Address City/[facility]/ZIP Code Phon e Number [address] Uric acid (02/22/2016 7:48 AM EDT) P athologist Signature Uric Acid 6.4 3.5 - 8.5 [facility] [place] mg/dL [facility] Specimen Anatomical Collection Method Collection Time Receive d Time (Source) Location / / Volume Laterality Blood specimen 02/22/2016 7:48 AM 016 8:00 (specimen) EDT AM EDT Resulting Agency Comment Spec In Lab Eriberto Melgar MD CHEMISTRY ORDERABLES Performing Organization Address City/State/ZIP Code Phon e Number [address] Tacrolimus level (02/22/2016 7:48 AM EDT) athologist Signature Tacrolimus Lvl 6.5 ng/mL [facility] Comment: Trough therapeutic: 5-15 ng/mL Specimen Anatomical Collection Method Collection Time Receive d Time (Source) Location / / Volume Laterality Blood specimen 02/22/2016 7:48 AM 016 (specimen) EDT 11:50 AM EDT Resulting Agency Comment Spec In Lab Eriberto Melgar MD CHEMISTRY ORDERABLES Performing Organization Address City/State/ZIP Code Phon e Number [address] Reticulocyte Count (02/22/2016 7:48 AM EDT) athologist [facility] Retic Ct % 1.0 0.5 - 2.4 [facility] Retic Ct Abs 0.050 0.027 - [facility] 0.095 [facility] x10(6)/[facility] LABORATORY Immature Retic% 3.4 2.3 - 15.9 [facility] Reticulated Hgb 30.1 28.5 - [facility] 38.9 [facility] LABORATORY Plat Immature % 2.1 0.0 - 7.4 [facility] Specimen Anatomical Collection Method Collection Time Receive d Time (Source) Location / / Volume Laterality Blood specimen 02/22/2016 7:48 AM 016 8:00 (specimen) EDT AM EDT Resulting Agency Comment Spec In Lab Eriberto Melgar MD HEMATOLOGY ORDERABLES Performing Organization Address City/State/[place] [address] Cholesterol, total (02/22/2016 7:48 AM EDT) athologist Signature Chol, Total 135 <=199 mg/dL [facility] Comment: Recommendations of the NCEP Adult Treatm ent Panel for the following risk cutoff thresholds for the [place] popul[place] n: Desirable: <200 mg/dL Borderline High: 200-239 mg/dL High: > or = 240 mg/dL Specimen Anatomical Collection Method Collection Time Receive d Time (Source) Location / / Volume Laterality Blood specimen 02/22/2016 7:48 AM 016 8:00 (specimen) EDT AM EDT Resulting Agency Comment Spec In Lab Eriberto Melgar MD CHEMISTRY ORDERABLES Performing Organization Address City/State/[place] [address] (ABNORMAL) Hemoglobin A1c (02/22/2016 7:48 AM EDT) Analysis Performed At Patho logis Time Signature Hemoglobin A1C 5.7 (H) 4.3 - 5.6 [facility] Comment: Reference Range: 4.3 [...] Mellitus, Diabetes Care 2013; 36: Suppl. 1, S67-61 Est Avg Gluc 117 mg/dL [facility] Comment: eAG equivalents for HbA1c percentages: HbA1c(%) ?eAG(mg/dL) 6.0 ?126 6.5 ?140 7.0 ?154 7.5 ?169 8.0 ?183 8.5 ?197 9.0 ?212 9.5 ?226 10.0 ? 240 Limitations: The eAG calculation has not been validated on women, individuals below 18 years old and above 70 years old, and individuals with hemoglobinopathies. Additional resources are available on [facility] website: [email or web address]SAadacalc Edinson GRISSOM, Nathaniel J, Ari R, et al. ??Tr anslating the A1C assay into estimated average glucose values. ??Diabetes Care 2008:31(8):8089-6178. Specimen Anatomical Collection Method Collection Time Receive d Time (Source) Location / / Volume Laterality Blood specimen 02/22/2016 7:48 AM 016 8:00 (specimen) EDT AM EDT Resulting Agency Comment Spec In Lab Eriberto Melgar MD CHEMISTRY ORDERABLES Performing Organization Address City/State/[place] [address] documented in this encounter Visit Diagnoses Diagnosis Need for pneumococcal vaccination - Prim jesse Need for prophylactic vaccination agains t streptococcus pneumoniae (pneumococcus) 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 Need for prophylactic immunotherapy Aftercare following organ transplant 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 Need for prophylactic immunotherapy documented in this encounter Care Teams Drug Worker Relationship Specialty Start Date End Date Anna Mullen MD PCP - General 12/03/10 [address] [place] [address] documented as of this encounter
--- OUTSIDE RECORDS SUMMARY | 2022-03-13 18:28 | XMS_ITS | Encounter Summary ---
:1965 Author Organization [facility] [place] [address] Care Team Providers Name Role Phone Anna Mullen MD Primary Care Provider Encounter Details Date Type Department Care Team Description 07/17/2017 Hospital Encounter [place] [phone] Social History Tobacco Use Types Packs/Day [...] Associated Diagnosis Comme nts FILM LIBRARY Routine 07/17/2017 12:00 AM Results for this STORAGE ONLY MR EST procedure ar e in HEAD the results section. documented in this encounter Results Film Library- Storage Only MR Head (07/17/2017 12:00 AM EST) Specimen (Source) Anatomical Location Collection Method / Collectio n Time Received Time / Laterality Volume Narrative JANE - 07/31/2017 6:26 PM EST This exam is for storage only and is aut o-finalizing. Bruce Moreno III, MD Brigitte FILM LIBRARY ORDERAB LES Performing Organization Address City/State/ZIP Code Phon e Number [facility] [place], [place] documented in this encounter Visit Diagnoses Not on filedocumented in this encounter Care Teams C D Still Operator Relationship Specialty Start Date End Date Anna Mullen MD PCP - General 12/03/10 [address] [place] [address] documented as of this encounter
--- OUTSIDE RECORDS SUMMARY | 2022-03-13 18:28 | XMS_ITS | Encounter Summary ---
:1965 Author Organization [facility] [place] [address] Care Team Providers Name Role Phone Anna Mullen MD Primary Care Provider Reason for Referral Diagnostic Test (Routine) - Specialty Diagnoses / Procedures Referred By Contact Refer red To Contact Diagnoses 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 Aftercare following organ transplant History of ASCVD (arteriosclerotic cardiovascular disease) Eriberto Melgar [facility] Non-Inv Card Lab Procedures Echo pharm stress test (DSE) [facility] [place] [address] [place] [address] Referral ID Status Reason Start Date Expiration Visits Visits Date Requested Authorized [id number] Specialty 07/09/2017 09/06/2017 1 1 Service Requested Reason for Visit Reason Comments Pancreas Transplant Follow-up Immunotherapy Encounter Details Date Type Department Care Team Description 02/11/2017 Office Visit Solid Organ Sayda Melgar ed by transplant; Transplant at [facility] Eriberto Stoddard MD Aftercare following organ transplant; [facility] Encounter for long-term (current) use of other medications; [facility] Prophylactic immunotherapy; [place], [place] TRANSPLANT History of ASCV D (arteriosclerotic cardiovascular disease) [id number] SURGERY [phone] [place], [place] [address] Social History Tobacco Use Types [...] Sign Reading Time Taken Comments Blood Pressure 129/79 02/11/2017 8:46 AM EDT Pulse 61 02/11/2017 8:46 AM EDT Temperature 36.5 ??C (97.7 ??F) 02/11/2017 8:46 AM EDT Respiratory Rate 12 02/11/2017 8:46 AM EDT Oxygen Saturation 100% 02/11/2017 8:46 AM EDT Inhaled Oxygen Concentration - - Weight 94.3 kg (207 lb 12.8 oz) 02/11/2017 8:46 AM EDT Height - - Body Mass Index 28.18 02/22/2016 8:46 AM EDT documented in this encounter Progress Notes Nicky Jaramillo CMA - 02/11/2017 9:20 AM EDT Confirmed last name and Patient c/o night sweats almost every night. Reviewed tobacco use, all allergies and meds, dose and frequency. No changes. No OTC meds, nutritional or herbal supplements. Immunizations are up to date. Eriberto Melgar MD - 02/11/2017 9:20 AM EDT [facility] Transplant Nephrology Follow Up ?? Richard Hsu [id number] 1965 ?? Transplant ID: Patient: Richard Hsu Transplant Date: 08/28/13 Organ(s) Pancreas [place] organ diagnosis: Diabetes Mellitus - Type I (Pancreas) ? 3.5 years ?? Transplant ID: Mr. Richard Hsu is a White Not nor 51 y.o. male who is Status Post Pancreas transplantation. Mr. Richard Hsu presents to clinic for routine follow-up of care ofhis Pancreas transplantation. His chronic back issues have been addressed both by the [facility] and his Orthopedic surgeon. He is now followed by a chiropractor in [place], [place]. ? Interim Hx: No interim problems except ongoing chronic musculoskeletal complaints. Active Ambulatory Problems Diagnosis Date Noted ??? LBP radiating to right leg 01/28/2011 ??? Diabetes mellitus 01/15/2012 ??? Stroke-like symptoms 01/15/2012 ??? Hypertension 01/15/2012 ??? Edema 01/15/2012 ??? Gastroparesis due to DM 01/15/2012 ??? Migraine 01/15/2012 ??? Pancreatitis 08/30/2013 ??? Immunosuppression 08/30/2013 ??? 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 Nevus 09/07/2014 ??? Vitiligo 09/07/2014 ??? Dehydration 08/30/2015 ??? 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 08/06/2016 ??? Depression 08/06/2016 ??? Aftercare following organ transplant 08/06/2016 ??? Encounter for long-term (current) use of other medications 08/06/2016 ??? Prophylactic immunotherapy 02/11/2017 Resolved Ambulatory Problems Diagnosis Date Noted ??? No Resolved Ambulatory Problems Past Medical History: Diagnosis Date ??? ASCVD (arteriosclerotic cardiovascular disease) ??? Breathing problem recently ??? Chronic pain 11 years old ??? Circulatory disease recently ??? Depression ??? Diabetes 17 years old ??? Digestive problems 22 years old ??? Gastroparesis ??? Genital disease, male 5 years ago ??? Headache since 12 years old ??? Heart disorder last three years ??? Hormone disorder awhile ago ??? HTN (hypertension) ??? Hypertensive disease 17 years old ??? Hypothyroid ??? IDDM (insulin dependent diabetes mellitus) ??? Musculoskeletal disease 11 years old ??? Nervous system disorder 1976 ??? Other ill-defined conditions 3 years ago ??? Papillary fibroelastoma of heart ??? Severe headache ?? Following was addressed with the patient: Healthcare maintenance for a transplant recipient: ?? [...] for non diabetics; needs one this year [place] kidney ultrasound looking for renal cell CA, every 5 years post transplant Bone density assessment every 9-12 years post transplant Annual fasting lipid profile Annual PTH-Vit D3 assessment until normalized Annual 24 hour timed urine for creatinine, protein, calcium, phosphate, magnesium ?? ROS: Denies fevers, chills, nausea, vomiting, diarrhea, abd pain, chest pain, sob. All other review of systems were neither positive or negative ?? Medications: Current Outpatient Prescriptions: ??? fexofenadine (BECKY) 60 mg Tablet, Take 60 mg by mouth daily., Disp: , Rfl: ??? CELLCEPT 250 mg Capsule, TAKE TWO CAPSULES BY MOUTH TWICE A DAY, Disp: 360 capsule, Rfl: 3 ??? Magnesium Gluconate (MAG-G) 27 mg (500 mg) Tablet, Take 1 tablet by mouth daily., Disp: 30 tablet, Rfl: 11 ??? gabapentin (NEURONTIN) 300 mg Capsule, Take 300 mg by mouth 2 times daily. Indications: 900 mg in AM and 100mg in PM, Disp: , Rfl: ??? multivitamin Capsule, Take 1 capsule by mouth daily., Disp: , Rfl: ??? traZODone (DESYREL) 50 mg Tablet, TAKE ONE TABLET BY MOUTH EVERY EVENING, Disp: 90 tablet, Rfl: 3 ??? PROGRAF 1 mg Capsule, TAKE TWO CAPSULES BY MOUTH TWICE A DAY, Disp: 120 capsule, Rfl: 11 ??? pantoprazole (PROTONIX) 40 mg Tablet, Delayed [...] by mouth daily., Disp: , Rfl: ??? lisinopril (PRINIVIL;ZESTRIL) 20 mg Tablet, Take 20 mg by mouth daily., Disp: , Rfl: ??? levothyroxine (SYNTHROID) 175 mcg tablet, Take 175 mcg by mouth daily., Disp: , Rfl: [...] 60 tablet, Rfl: 6 Allergies / ADRs: Allergies Allergen Reactions ??? Nexium [Esomeprazole Magnesium] Diarrhea ? Any acid reflux medication causes severe diarrhea ??? Prilosec [Omeprazole Magnesium] Diarrhea ??? Reglan [Metoclopramide Hcl] ? TD ??? Simvastatin ? PHYSICAL EXAM: Vitals Office Visit from 02/11/2017 in Transplant Weight - Scale 94.3 kg (207 lb 12.8 oz) Temp 36.5 ??C (97.7 ??F) Temp Source Oral Heart Rate 61 Resp 12 BP 129/79 Patient Position Sitting SpO2 100 % Gen [...] cyanosis. No dependent edema. ?? Labs/ Imaging: Recent Results (from the past 72 hour(s)) Amylase Result Value Ref Range Amylase 60 28 - 100 unit/L Lipase Result Value Ref Range Lipase 20 0 - 60 unit/L Cholesterol, total Result Value Ref Range Chol, Total 138 <=239 mg/dL Lipid Interpretation See Note Comprehensive metabolic panel (non-fasting) Result Value Ref Range Glucose Lvl 110 65 - 199 mg/dL BUN 14 10 - 20 mg/dL Creatinine 1.08 0.80 - 1.50 mg/dL Sodium 132 (L) 135 - 145 mmol/L Potassium 4.8 3.5 - 5.0 mmol/L Chloride 95 (L) 98 - 107 mmol/L CO2 24 22 - 31 mmol/L Anion Gap 13 5 - 15 mmol/L Calcium 9.2 8.5 - 10.5 mg/dL Total Protein 7.4 6.1 - 8.0 gm/dL Albumin 4.6 3.2 - 5.2 gm/dL AST 24 0 - 39 unit/L ALT 24 0 - 55 unit/L Alk Phos 102 40 - 120 unit/L Total Bilirubin 1.3 0.2 - 1.3 mg/dL Bili, Direct 0.2 0.0 - 0.3 mg/dL Estimated GFR >60 >=60 Magnesium Result Value Ref Range Magnesium 0.76 0.69 - 1.07 mmol/L Phosphorus Result Value Ref Range Phosphorus 2.9 2.5 - 4.5 mg/dL Reticulocyte Count Result Value Ref Range Retic Ct % 1.2 0.7 - 2.6 % Retic Ct Abs 0.060 0.030 - 0.120 x10(6)/mcL Immature Retic% 2.5 0.0 - 15.6 % Reticulated Hgb 34.2 31.3 - 40.2 pg Uric acid Result Value Ref Range Uric Acid 6.8 3.5 - 8.5 mg/dL Lavender Tube HOLD Result Value Ref Range Lavender Hold Sample in lab. Gold Tube HOLD Result Value Ref Range Gold Hold Sample in lab. Hemogram Result Value Ref Range WBC 5.9 4.0 - 9.5 x10(3)/mcL RBC 4.53 (L) 4.58 - 5.54 x10(6)/mcL Hemoglobin 13.7 13.7 - 16.5 gm/dL Hematocrit 39.4 (L) 40.5 - 48.5 % MCV 87.0 82.9 - 93.1 fL MCH 30.2 27.5 - 32.1 pg MCHC 34.8 32.0 - 35.7 gm/dL Platelets 242 145 - 357 x10(3)/mcL RDWSD 38.9 36.0 - 45.0 fL RDWCV 12.3 11.4 - 13.8 % MPV 9.8 7.6 - 12.9 fL nRBC % Auto 0.0 % nRBC Abs Auto 0.000 0.000 - 0.000 x10(3)/mcL Differential, Automated Result Value Ref Range Neutrophils % 40.3 % Neutr Abs (ANC) 2.37 1.70 - 6.10 x10(3)/mcL Lymphocytes % 46.6 % Lymphocytes Abs 2.7 0.9 - 3.2 x10(3)/mcL Monocytes % 9.2 % Monocyte Abs 0.5 0.3 - 0.9 x10(3)/mcL Eosinophils % 2.7 % Eosinophils Abs 0.2 0.0 - 0.4 x10(3)/mcL Basophils % 0.7 % Basophils Abs 0.0 0.0 - 0.1 x10(3)/mcL Immature Gran % 0.50 % Kym Gran Abs 0.03 0.00 - 0.04 x10(3)/mcL Urinalysis with reflex Culture Result Value Ref Range Glucose UA Negative Negative mg/dL Protein UA Negative Negative mg/dL Bilirubin UA Negative Negative mg/dL Urobilinogen UA Normal Normal mg/dL pH UA 7.0 5.0 - 8.0 Blood UA Negative Negative mg/dL Ketones UA Negative Negative mg/dL Nitrite UA Negative Negative Leukocytes UA Negative Negative mcL Appearance UA Clear Clear Spec Menard UA 1.006 1.002 - 1.030 Color UA Straw Yellow RBC UA Not Present 0 - 3 /HPF WBC UA Not Present 0 - 3 /HPF Culture Reflexed No Impression/ Plan: ?? Transplant Status S/p panc transplant 3.5 years out, stable graft function ?? Depression meds: on Effexor ? Immunosuppression Dual therapy Prograf 2+2 Cellcept 500 bid ? PO4/Mg On Mg supplement daily ? Hypertension Stable ? He needs a DSE and colo. ? Follow up: 6 months with repeat labs quarterly documented in this encounter Plan of Treatment Not on filedocumented as of this encounter Results STRESS ECHOCARDIOGRAM W LMTD SPECTRAL DOPP, COLOR DOPP (03/11/2018 9:36 AM EDT) P athologist Signature EF 65 Extreme Reach SYSTEM Specimen (Source) Anatomical Location Collection Method / Collectio n Time Received Time / Laterality Volume 03/11/2018 Narrative [facility] - 03/11/2018 10:02 AM ED T Procedure: ?Stress Echocardiogram Patient: ?VAZQUEZ LEIGH W ?(Age): 1965(52y) Med Rec#: ? [id number] ?Sex: ?M ? Site Loc: ? [facility] ?Ht / Wt: ??183(cm)/92(kg) Pt. Loc: ?Echo Lab ?BSA: ?2.14 Study Date: ?? 03/11/2018 ?Pt. Type: Tape: ? Referring: Eriberto Melgar Reading: Bebo Dickens ([id number]) Violin Tutor: Ariel Bazzi Violin Tutor: Nya Doss Nurse: Lacey Sánchez Diagnosis: *Pancreas [...] rate (170 beats/min), peak rate pressure product 13054. The patient did not express feelings of [...] lateral wall segments. ?The left ventricular diastolic arabelal ling pattern is consistent with impaired LV [...] Normal ? Mid-Inferoseptal ?Normal ? Normal ? [place]-Septal ? Normal ? Normal ? [place]-Anterior ? Normal ? Normal ? [place]-Lateral ?Normal ? Normal ? [place]-Inferior ? Normal ? Normal ? [place]-Tip ?Normal ? Normal ? This report has been electronically sign ed by: _ Bebo Dickens MD ? 03/11/2018 10:02 :13 Images reviewed and interpretation verif ied [facility] Cardiac Ultrasound Laboratory Procedure Note Bebo Dickens MD - 03/11/2018Formattin g of this note might be different from the original. Procedure: Stress Echocardiogram Patient: VAZQUEZ Guillen DOB(Age): [birth year]52y) Med Rec#: [id number] Sex: M Site Loc: [facility] Ht / Wt: 183(cm)/92(kg) Pt. Loc: Echo Lab BSA: 2.14 Study Date: 03/11/2018 Pt. Type: Tape: Referring: Eriberto Melgar Reading: Bebo Dickens ([id number]) Violin Tutor: Ariel Bazzi Violin Tutor: Nya Doss Nurse: Lacey Sánchez Diagnosis: *Pancreas [...] rate (170 beats/min), peak rate pressure product 81423. The patient did not express feelings of [...] ic Mid-Inferior Normal Normal Mid-Inferoseptal Normal Normal [place]-Septal Normal Normal [place]-Anterior Normal Normal [place]-Lateral Normal Normal [place]-Inferior Normal Normal [place]-Tip Normal Normal This report has been electronically sign ed by: _ Bebo Dickens MD 03/11/2018 10:02:13 Images reviewed and interpretation versusie almazand [facility] Cardiac Ultrasound Laboratory Eriberto Melgar MD ECHO ORDERABLES Performing Organization Address City/State/ZIP Code Phon e Number [facility] Urinalysis with reflex Culture (02/11/2017 8:21 AM EDT) [facility] Method Time Signature Glucose UA Negative Negative [facility] Protein UA Negative Negative [facility]/dL [facility] Bilirubin UA Negative Negative [facility] mg/dL [facility] Comment: Clinical correlation required for positi ve Urine Bilirubin results as false positive may occur with some drugs and d rug related products. If a false positive is suspected a serum total bili sinha should be considered if clinically indicated. Urobilinogen UA Normal Normal mg/dL [facility] pH UA 7.0 5.0 - 8.0 [facility] Blood UA Negative Negative mg/dL [facility] Ketones UA Negative Negative mg/dL [facility] Nitrite UA Negative Negative [facility] Leukocytes UA Negative Negative [facility] Appearance UA Clear Clear [facility] Spec Menard UA 1.006 1.002 - 1.030 [facility] Color UA Straw Yellow [facility] RBC UA Not Present 0 - 3 /HPF [facility] WBC UA Not Present 0 - 3 /HPF [facility] Culture Reflexed No [facility] Specimen (Source) Anatomical Collection Method Collection Time Re ceived Time Location / / Volume Laterality Urine specimen 02/11/2017 8:21 02/11/2017 8:28 obtained by clean AM EDT AM EDT catch procedure (specimen) Resulting Agency Comment Spec In Lab Eriberto Melgar MD URINE ORDERABLES Performing Organization Address City/State/ZIP [place] [address] Protein/Creatinine Ratio, urine (02/11/2017 8:21 AM EDT) athologist Signature U Creatinine 42 mg/dL [facility] U Protein Ran <6 0 - 12 [facility] mg/dL [facility] Prot/Cre Ratio <0.1 ratio [facility] Specimen Anatomical Collection Method Collection Time Receive d Time (Source) Location / / Volume Laterality Urine specimen 02/11/2017 8:21 AM 017 8:29 (specimen) EDT AM EDT Resulting Agency Comment Spec In Lab Eriberto Melgar MD URINE ORDERABLES Performing Organization Address City/[facility]/ZIP Code Phon e Number [address] Gold Tube HOLD (02/11/2017 8:14 AM EDT) athologist Signature Gold Hold Sample in [facility] LABORATORY Specimen Anatomical Collection Method Collection Time Receive d Time (Source) Location / / Volume Laterality Blood specimen 02/11/2017 8:14 AM 017 8:25 (specimen) EDT AM EDT Eriberto Melgar MD CHEMISTRY ORDERABLES Performing Organization Address City/[facility]/ZIP Code Phon e Number [address] Lavender Tube HOLD (02/11/2017 8:14 AM EDT) [facility] g[facility] Method Time Signature Lavender Hold Sample in [facility] LABORATORY Specimen Anatomical Collection Method Collection Time Receive d Time (Source) Location / / Volume Laterality Blood specimen 02/11/2017 8:14 AM 017 8:25 (specimen) EDT AM EDT Eriberto Melgar MD HEMATOLOGY ORDERABLES Performing Organization Address City/[facility]/ZIP Code Phon e Number [address] Uric acid (02/11/2017 8:14 AM EDT) athologist Signature Uric Acid 6.8 3.5 - 8.5 [facility] mg/dL [facility] Specimen Anatomical Collection Method Collection Time Receive d Time (Source) Location / / Volume Laterality Blood specimen 02/11/2017 8:14 AM 017 8:25 (specimen) EDT AM EDT Resulting Agency Comment Spec In Lab Eriberto Melgar MD CHEMISTRY ORDERABLES Performing Organization Address [facility] Phon e Number [address] Tacrolimus level (02/11/2017 8:14 AM EDT) athologist Signature Tacrolimus Lvl 6.8 ng/mL [facility] Comment: Trough therapeutic: ??5-15 ng/mL Performed by ultra-performance liquid ch romatography tandem mass spectrometry (UPLCMS/MS). This test was developed and its performa nce characteristics determined by [facility]. It has not been cleared or approved by the FDA. The laboratory is regulated under CLIA a s qualified to perform high-complexity testing. This test is used for clinical purposes. It should not be regarded as investigational or for research. Specimen Anatomical Collection Method Collection Time Receive d Time (Source) Location / / Volume Laterality Blood specimen 02/11/2017 8:14 AM 017 (specimen) EDT 10:06 AM EDT Resulting Agency Comment Spec In Lab Eriberto Melgar MD CHEMISTRY ORDERABLES Performing Organization Address [facility] Phon e Number [address] Reticulocyte Count (02/11/2017 8:14 AM EDT) athologist Signature Retic Ct % 1.2 0.7 - 2.6 [facility] Retic Ct Abs 0.060 0.030 - [facility] 0.120 [facility] x10(6)/[facility] LABORATORY Immature Retic% 2.5 0.0 - 15.6 [facility] Reticulated Hgb 34.2 31.3 - [facility] 40.2 pg [facility] Specimen Anatomical Collection Method Collection Time Receive d Time (Source) Location / / Volume Laterality Blood specimen 02/11/2017 8:14 AM 017 8:25 (specimen) EDT AM EDT Resulting Agency Comment Spec In Lab Eriberto Melgar MD HEMATOLOGY ORDERABLES Performing Organization Address City/[facility]/ZIP Code Phon e Number [address] Phosphorus (02/11/2017 8:14 AM EDT) P athologist Signature Phosphorus 2.9 2.5 - 4.5 [facility] Specimen Anatomical Collection Method Collection Time Receive d Time (Source) Location / / Volume Laterality Blood specimen 02/11/2017 8:14 AM 017 8:25 (specimen) EDT AM EDT Resulting Agency Comment Spec In Lab Eriberto Melgar MD CHEMISTRY ORDERABLES Performing Organization Address City/[facility]/ZIP Code Phon e Number [address] Magnesium (02/11/2017 8:14 AM EDT) athologist Signature Magnesium 0.76 0.69 - 1.07 [facility] mmol/L [facility] Specimen Anatomical Collection Method Collection Time Receive d Time (Source) Location / / Volume Laterality Blood specimen 02/11/2017 8:14 AM 017 8:25 (specimen) EDT AM EDT Resulting Agency Comment Spec In Lab Eriberto Melgar MD CHEMISTRY ORDERABLES Performing Organization Address City/[facility]/ZIP [place] [address] (ABNORMAL) Comprehensive metabolic panel (non-fasting) (02/11/2017 8:14 AM EDT) P athologist Signature Glucose Lvl 110 65 - 199 [facility] mg/dL [facility] Comment: Diabetes: >=200 mg/dL plus symp toms BUN 14 10 - 20 mg/dL [facility] Creatinine 1.08 0.80 - 1.50 mg/dL [facility] Comment: Please note that the pediatric reference intervals supplied above were not validated at [facility]. Results from pediatri c patients should be interpreted in conjunction to the patient's age, height and muscle mass. Sodium 132 (L) 135 - 145 mmol/L [facility] Potassium 4.8 3.5 - 5.0 mmol/L [facility] Comment: Please note: ??Patients with WBC >100,00 0 may have falsely elevated Potassium levels. ??For accurate Potassium quantif ication in these patients send serum separator tube (gold top) for subsequent determinations. ??Contact the Clinical Chemistry Laboratory if there are any qu estions. Chloride 95 (L) 98 - 107 mmol/L [facility] CO2 24 22 - 31 mmol/L [facility] Anion Gap 13 5 - 15 mmol/L [facility] Calcium 9.2 8.5 - 10.5 mg/dL [facility] Total Protein 7.4 6.1 - 8.0 gm/dL [facility] Albumin 4.6 3.2 - 5.2 gm/dL [facility] AST 24 0 - 39 unit/L [facility] ALT 24 0 - 55 unit/L [facility] Alk Phos 102 40 - 120 unit/L [facility] Total Bilirubin 1.3 0.2 - 1.3 mg/dL [facility] Bili, Direct 0.2 0.0 - 0.3 mg/dL [facility] Estimated GFR >60 >=60 [facility] Comment: This estimated GFR (eGFR) [...] the following links into your internet browser. [email or web address] Specimen Anatomical Collection Method Collection Time Receive d Time (Source) Location / / Volume Laterality Blood specimen 02/11/2017 8:14 AM 017 8:25 (specimen) EDT AM EDT Resulting Agency Comment Spec In Lab Eriberto Melgar MD CHEMISTRY ORDERABLES Performing Organization Address City/State/ZIP Code [place] [address] Cholesterol, total (02/11/2017 8:14 AM EDT) Patholo gist Method Time Signature Chol, Total 138 <=239 [place] mg/dL [facility] Lipid See Note [place] Interpretation [facility] Comment: Lipid management should be guided by a p atient? s ASCVD risk, goals and preferences. ACC/AHA Guidelines recommend high intens ity statin if clinical ASCVD or LDL greater than or equal to 190 mg/dL. http://[employer]/JOH-KBD-Gaesfauvk Adults aged 40-75 with LDL 70-189 mg/dL should have their 10 year ASCVD risk estimated with the ACC/AHA ASCVD risk es timator http://tools.acc.org/NYMNX-Yswk-Vwqfliov r/ Statin should be discussed if risk [...] Location / / Volume Laterality Blood specimen 02/11/2017 8:14 AM 017 8:25 (specimen) EDT AM EDT Resulting Agency Comment Spec In Lab Eriberto Melgar MD CHEMISTRY ORDERABLES Performing Organization Address City/State/ZIP Code [place] [address] Lipase (02/11/2017 8:14 AM EDT) P athologist Signature Lipase 20 0 - 60 [facility] LABORATORY Specimen Anatomical Collection Method Collection Time Receive d Time (Source) Location / / Volume Laterality Blood specimen 02/11/2017 8:14 AM 017 8:25 (specimen) EDT AM EDT Resulting Agency Comment Spec In Lab Eriberto Melgar MD CHEMISTRY ORDERABLES Performing Organization Address City/[facility]/ZIP [facility] Phon e Number [address] Amylase (02/11/2017 8:14 AM EDT) P athologist Signature Amylase 60 28 - 100 [facility] LABORATORY Specimen Anatomical Collection Method Collection Time Receive d Time (Source) Location / / Volume Laterality Blood specimen 02/11/2017 8:14 AM 017 8:25 (specimen) EDT AM EDT Resulting Agency Comment Spec In Lab Eriberto Melgar MD CHEMISTRY ORDERABLES Performing Organization Address City/[facility] [place] [address] documented in this encounter Visit Diagnoses Diagnosis 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 Aftercare following organ transplant Encounter for long-term (current) use of other medications Prophylactic immunotherapy Need for prophylactic immunotherapy History of ASCVD (arteriosclerotic cardi ovascular disease) Personal history of other diseases of ci rculatory system 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 Aftercare following organ transplant History of ASCVD (arteriosclerotic cardi ovascular disease) Personal history of other diseases of ci rculatory system documented in this encounter Care Teams Aitchbone Breaker Relationship Specialty Start Date End Date Anna Mullen MD PCP - General 12/03/10 [address] [place] [address] documented as of this encounter
--- OUTSIDE RECORDS SUMMARY | 2022-03-13 18:28 | XMS_ITS | Encounter Summary ---
:1965 Author Organization [facility] [place] [address] Care Team Providers Name Role Phone Anna Mullen MD Primary Care Provider Encounter Details Date Type Department Care Team Description 01/29/2017 Telephone Solid [place] [address] Social History Tobacco Use Types Packs/Day Years Used Date Never Smoker Smokeless Tobacco: Never Used Alcohol Use Standard Drinks/Week Comments No 0 (1 standard drink = 0.6 oz pure alcoho l) history of abuse, stopped 1996 Sex Assigned at Date Recorded Male 05/29/2021 11:28 PM EDT documented as of this encounter Miscellaneous Notes Telephone Encounter - Nicky Jaramillo CMA - 01/29/2017 9:15 AM EDT Standing orders faxed to [facility] laboratory at [phone] documented in this encounter Plan of Treatment Not on filedocumented as of this encounter Visit Diagnoses Not on filedocumented in this encounter Care Teams Research Hydraulic Engineer Relationship Specialty Start Date End Date Anna Mullen MD PCP - General 12/03/10 [address] [place] [address] documented as of this encounter
--- OUTSIDE RECORDS SUMMARY | 2022-03-13 18:28 | XMS_ITS | Encounter Summary ---
:1965 Author Organization [facility] [place] [address] Care Team Providers Name Role Phone Anna Mullen MD Primary Care Provider Reason for Visit Reason Comments Medication Refill Encounter Details Date Type Department Care Team Description 12/17/2016 Refill Solid Organ Transplant at Eriberto Emery [facility] [place] [address] [place] [address] [phone] (Wo rk) Social History Tobacco Use Types [...] on filedocumented in this encounter Care Teams Drupal Architect Relationship Specialty Start Date End Date Anna Mullen MD PCP - General 12/03/10 [address] [place], [place] [id number] documented as of this encounter
--- OUTSIDE RECORDS SUMMARY | 2022-03-13 18:28 | XMS_ITS | Encounter Summary ---
:1965 Author Organization [facility] [place] [address] Care Team Providers Name Role Phone Anna Mullen MD Primary Care Provider Encounter Details Date Type Department Care Team Description 02/22/2016 Hospital Encounter XRay at [facility] [place], Pancreas replaced by transpl ant; [address] [facility] [address] Eriberto Stoddard MD Need for prophylactic immunotherapy [facility] [id number] CENTER [phone] TRANSPLANT SURGERY [place] [id number] Social History Tobacco Use Types Packs/Day Years [...] Sig Dispensed Refills Start Date End Date pantoprazole (PROTONIX) Take 40 mg by mouth 0 40 mg Tablet, Delayed 2 times daily. Release (E.C.) psyllium 3.5 gram Take 1 packet by 30 each 0 09/01/2015 Powder in Packet mouth daily. ondansetron (ZOFRAN) 8 Take 1 tablet by 15 tablet 0 08/30/ 015 mg Tablet mouth every 8 hours as needed for Nausea. sildenafil (VIAGRA) 100 Take 1 tablet by mouth as ne eded for Erectile Dysfunction. 90 day supply 60 tablet 6 09/14/2012 mg tablet Dx code :250.60 Magnesium Gluconate Take 1 tablet by 0 08/06/2016 27.5 mg (500 mg) Tablet mouth 3 times daily. PROGRAF 1 mg Capsule TAKE 2 CAPSULES BY 120 capsule 9 201402/29/2016 MOUTH TWO TIMES A DAY traZODone (DESYREL) 50 TAKE ONE TABLET BY 90 tablet 3 05/1605/21/2016 mg Tablet MOUTH EVERY EVENING CELLCEPT 250 mg Capsule TAKE TWO CAPSULES BY 360 capsule 2 0 05/09/2015 03/12/2016 MOUTH TWICE A DAY aspirin 81 mg Tablet, Take 81 mg [...] if oral temperature greater than 38.5 Centigrade). citalopram (CELEXA) 20 Take 40 mg by mouth 0 08/06/2016 mg tablet daily. documented as of this encounter Plan of Treatment Not on filedocumented as of this encounter Procedures Procedure Name Priority Date/Time Associated Diagnosis Comme nts XR CHEST PA AND Routine 02/22/2016 9:48 AM Pancreas replaced b y Results for this LATERAL EDT transplant procedure are in Need for prophylactic the re sults immunotherapy section. documented in this encounter Results XR [...] ality. 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
--- OUTSIDE RECORDS SUMMARY | 2022-03-13 18:28 | XMS_ITS | Encounter Summary ---
:1965 Author Organization [facility] [place] [address] Care Team Providers Name Role Phone Anna Mullen MD Primary Care Provider Encounter Details Date Type Department Care Team Description 07/22/2016 Abstract Solid Organ Transpla nt at [facility] [place] [address] Social History Tobacco Use Types Packs/Day [...] on filedocumented in this encounter Care Teams Remote Encoding Center Manager Relationship Specialty Start Date End Date Anna Mullen MD PCP - General 12/03/10 [address] [place], [place] [address] documented as of this encounter
--- OUTSIDE RECORDS SUMMARY | 2022-03-13 18:28 | XMS_ITS | Encounter Summary ---
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 PTH STAT 08/06/2016 9:36 AM Pancreas replaced Resu lts for this EST by transplant procedure are in the results section. CMP W/FASTING STAT 08/06/2016 9:36 AM Pancreas replaced Res ults for this GLUCOSE EST by transplant procedure are in the results section. BKV QUANT BLOOD STAT 08/06/2016 9:36 AM Pancreas replaced EST by transplant HEMOGRAM STAT 08/06/2016 9:36 AM Pancreas replaced Resu lts for this EST by transplant procedure are in the results section. DIFFERENTIAL, STAT 08/06/2016 9:36 AM Pancreas replaced Res ults for this AUTOMATED EST by transplant procedure are in the results section. GOLD TUBE HOLD Routine 08/06/2016 9:36 AM Pancreas replaced Re sults for this EST by transplant procedure are in the results section. LAVENDER TUBE HOLD Routine 08/06/2016 9:36 AM Pancreas replace d Results for this EST by transplant procedure are in the results section. TACROLIMUS LEVEL STAT 08/06/2016 9:36 AM Pancreas replaced Results for this EST by transplant procedure are in the results section. 1,25-DIHYDROXYCHOLEC STAT 08/06/2016 9:36 AM Pancreas repla [place] Results for this ALCIFEROL EST by transplant procedure are in the results section. VITAMIN D, STAT 08/06/2016 9:36 AM Pancreas replaced Resu lts for this 25-HYDROXY EST by transplant procedure are in the results section. CBC (WITH DIFF) STAT 08/06/2016 9:36 AM Pancreas replaced EST by transplant URIC ACID STAT 08/06/2016 9:36 AM Pancreas replaced Resu lts for this EST by transplant procedure are in the results section. PHOSPHORUS STAT 08/06/2016 9:36 AM Pancreas replaced Resu lts for this EST by transplant procedure are in the results section. MAGNESIUM STAT 08/06/2016 9:36 AM Pancreas replaced Resu lts for this EST by transplant procedure are in the results section. LIPASE STAT 08/06/2016 9:36 AM Pancreas replaced Resu lts for this EST by transplant procedure are in the results section. HEMOGLOBIN A1C STAT 08/06/2016 9:36 AM Pancreas replaced Re sults for this EST by transplant procedure are in the results section. AMYLASE STAT 08/06/2016 9:36 AM Pancreas replaced Resu lts for this EST by transplant procedure are in the results section. LIPID PANEL (REFLEX STAT 08/06/2016 9:36 AM Pancreas replac ed Results for this DIRECT LDL) EST by transplant procedure are in the results section. CALCIUM CREATININE STAT 08/06/2016 9:34 AM Pancreas replace d Results for this RATIO, RANDOM URINE EST by transplant procedu re are in the results section. PROTEIN/CREATININE STAT 08/06/2016 9:34 AM Pancreas replace d Results for this RATIO, URINE EST by transplant procedure are in the results section. PHOSPHORUS, URINE, STAT 08/06/2016 9:34 AM Pancreas replace d Results for this RANDOM EST by transplant procedure are in the results section. URINALYSIS WITH STAT 08/06/2016 9:33 AM Pancreas replaced R esults for this REFLEX CULTURE EST by transplant procedure ar e in the results section. U24 HRS AND VOLUME Routine 08/06/2016 9:30 AM Res ults for this EST procedure are i n the results section. URIC ACID, URINE, 24 Routine 08/06/2016 9:30 AM Pancreas repla [place] Results for this HOUR EST by transplant procedure are in the results section. CALCIUM, URINE, 24 Routine 08/06/2016 9:30 AM Pancreas replace d Results for this HOUR EST by transplant procedure are in the results section. CREATININE, URINE, Routine 08/06/2016 9:30 AM Pancreas replace d Results for this 24 HOUR EST by transplant procedure are in the results section. PROTEIN, URINE, 24 Routine 08/06/2016 9:30 AM Pancreas replace d Results for this HOUR EST by transplant procedure are in the results section. PHOSPHORUS, URINE, Routine 08/06/2016 9:30 AM Pancreas replace d Results for this 24 HOUR EST by transplant procedure are in the results section. CREATININE Routine 08/06/2016 9:30 AM Pancreas replaced Resu lts for this CLEARANCE, URINE, 24 EST by transplant proced ure are in HOUR the results section. documented in this encounter Results BK Quant Blood Result (08/06/2016 9:36 AM EST) Component Value Ref Test Analysis Performed At [facility] Range Method Time Signature BKV Blood Not Detected [facility] LABORATORY BKV Blood BK Virus Plasma Result Interpretation [facility] Result: BK Virus not detected HOSPITAL Specimen type: plasma LABORATO RY Assay Range: 2.83-8.83 log copies/mL (6.8x10^2 - 6.8x10^8 co pies/mL) Methods: Quantitative real-time polymerase chain react ion (PCR) of viral DNA isolated from plasma was performed using [employer] (formerly, [employer]) BKV analyte-specific reagents and the [employer] 7 500 FAST Real-Time PCR System. In [...] test was developed and its performance [facility] determined by the [facility] ed [facility] (CGAT) Laboratory at [place]. It has not been cleared or approved by the FDA. The laboratory is regulated under CLIA as qualified to perform high-complexity testing. This charles t is used for clinical purposes. It should not be regarded as investigational or fo r research. Comment: [VERIFIED DATE]08.13.16 Verified By:Elizabeth Logan (Electronic Signature) Specimen Anatomical Collection Method Collection Time Receive d Time (Source) Location / / Volume Laterality Blood specimen 08/06/2016 9:36 AM 016 (specimen) EST 11:52 AM EST Resulting Agency Comment Spec In Lab Eriberto Melgar MD HEMATOLOGY ORDERABLES Performing Organization Address City/State/ZIP Code Phon e Number [place] [phone] (ABNORMAL) Differential, Automated (08/06/2016 9:36 AM EST) P athologist Signature Neutrophils % 56.4 % [facility] LABORATORY Neutr Abs (ANC) 5.21 1.70 - [facility] 6.10 [facility] x10(3)/[facility] LABORATORY Lymphocytes % 33.6 % [facility] LABORATORY Lymphocytes Abs 3.1 0.9 - 3.2 [facility] x10(3)/[facility] LABORATORY Monocytes % 7.5 % [facility] LABORATORY Monocyte Abs 0.7 0.3 - 0.9 [facility] x10(3)/[facility] LABORATORY Eosinophils % 1.4 % [facility] LABORATORY Eosinophils Abs 0.1 0.0 - 0.4 [facility] x10(3)/[facility] LABORATORY Basophils % 0.5 % [facility] LABORATORY Basophils Abs 0.0 0.0 - 0.1 [facility] x10(3)/[facility] LABORATORY Immature Gran % 0.60 % [facility] LABORATORY Comment: Immature granulocytes(IG's)percentage an d absolute count will include metamyelocytes, myelocytes, and promyelo cytes. Blood smears from CBCs yielding IG's will be scanned manually for salvatore torres. If this scan disagrees with the automated IG or if promyelocytes are not ed, a manual differential will be performed. Kym Gran Abs 0.06 (H) 0.00 - 0.04 x10(3)/[facility] LABORATORY Specimen Anatomical Collection Method Collection Time Receive d Time (Source) Location / / Volume Laterality Blood specimen 08/06/2016 9:36 AM 016 9:43 (specimen) EST AM EST Resulting Agency Comment Spec In Lab Eriberto Melgar MD HEMATOLOGY ORDERABLES Performing Organization Address City/State/[place] [address] Hemogram (08/06/2016 9:36 AM EST) P athologist Signature WBC 9.2 4.0 - 9.5 [facility] x10(3)/[facility] LABORATORY RBC 4.86 4.58 - [facility] x10(6)/[facility] LABORATORY Hemoglobin 14.2 13.7 - [facility] 16.5 gm/dL [facility] Hematocrit 42.1 40.5 - [facility] 48.5 % [facility] MCV 86.6 82.9 - [facility] LABORATORY MCH 29.2 27.5 - [place] 32.1 pg [facility] LAB[facility]ATORY MCHC 33.7 32.0 - [facility] 35.7 gm/dL [facility] Platelets 278 145 - 357 [facility] x10(3)/[facility] LABORATORY RDWSD 38.8 36.0 - [facility] 45.0 [facility] LABORATORY RDWCV 12.4 11.4 - [facility] 13.8 % [facility] LAB[facility]AT[facility] MPV 10.0 7.6 - 12.9 [facility] LABORATORY nRBC % Auto 0.0 % [facility] LAB[facility] nRBC Abs Auto 0.000 0.000 - [facility] [place] 0.000 [facility] x10(3)/[facility] LABORATORY Specimen Anatomical Collection Method Collection Time Receive d Time (Source) Location / / Volume Laterality Blood specimen 08/06/2016 9:36 AM 016 9:43 (specimen) EST AM EST Resulting Agency Comment Spec In Lab Eriberto Melgar MD HEMATOLOGY ORDERABLES Performing Organization Address City/[facility]/ZIP Code Phon e Number [address] (ABNORMAL) Vitamin D, 25-Hydroxy (08/06/2016 9:36 AM EST) P athologist Signature 25-OH Vit D 29 (L) 30 - 100 [place] Total ng/mL [facility] LABORATORY Comment: Deficient <10 ng/mL Insufficient 10 to 29 ng/mL Sufficient 30 to 100 ng/mL Potential Intoxication >100 ng/mL According to the [place] National Osteoporosi s Foundation, Vitamin D concentrations >30 ng/mL are sufficient to protect bone health. ??The National Kidney Foundation has similarly stated that pat ients with Vitamin D concentrations <30ng/mL should be considered to be insu fficient or deficient. http://[employer]/DHnatlkidneyfoundat ion http://[employer]/DHMCVitD The [employer] Vitamin D Immunoassay detec [...] Organization Address City/State/ZIP Code Phon e Number [address] Uric acid (08/06/2016 9:36 AM EST) P athologist Signature Uric Acid 6.9 3.5 - 8.5 [facility] [place] mg/dL [facility] LABORATORY Specimen Anatomical Collection Method Collection Time Receive d Time (Source) Location / / Volume Laterality Blood specimen 08/06/2016 9:36 AM 016 9:43 (specimen) EST AM EST Resulting Agency Comment Spec In Lab Eriberto Melgar MD CHEMISTRY ORDERABLES Performing Organization Address City/[facility]/ZIP Code Phon e Number [address] Tacrolimus level (08/06/2016 9:36 AM EST) P athologist Signature Tacrolimus Lvl 8.7 ng/mL [facility] LABORATORY Comment: Trough therapeutic: ??5-15 ng/mL Performed by ultra-performance liquid ch romatography tandem mass spectrometry (UPLCMS/MS). Specimen Anatomical Collection Method Collection Time Receive d Time (Source) Location / / Volume Laterality Blood specimen 08/06/2016 9:36 AM 016 (specimen) EST 10:38 AM EST Resulting Agency Comment Spec In Lab Eriberto Melgar MD CHEMISTRY ORDERABLES Performing Organization Address City/[facility]/ZIP Code Phon e Number [address] PTH (08/06/2016 9:36 AM EST) P athologist Signature PTH 64 15 - 65 [place] pg/mL [facility] LABORATORY Specimen Anatomical Collection Method Collection Time Receive d Time (Source) Location / / Volume Laterality Blood specimen 08/06/2016 9:36 AM 016 9:44 (specimen) EST AM EST Resulting Agency Comment Spec In Lab Eriberto Melgar MD CHEMISTRY ORDERABLES Performing Organization Address City/[facility]/[place] [address] Phosphorus (08/06/2016 9:36 AM EST) P athologist Signature Phosphorus 3.0 2.5 - 4.5 [place] [place] mg/dL [facility] LABORATORY Specimen Anatomical Collection Method Collection Time Receive d Time (Source) Location / / Volume Laterality Blood specimen 08/06/2016 9:36 AM 016 9:43 (specimen) EST AM EST Resulting Agency Comment Spec In Lab Eriberto Melgar MD CHEMISTRY ORDERABLES Performing Organization Address City/[facility]/ZIP Code Phon e Number [place] [address] Magnesium (08/06/2016 9:36 AM EST) P athologist Signature Magnesium 0.71 0.69 - 1.07 [facility] mmol/L [facility] LABORATORY Specimen Anatomical Collection Method Collection Time Receive d Time (Source) Location / / Volume Laterality Blood specimen 08/06/2016 9:36 AM 016 9:43 (specimen) EST AM EST Resulting Agency Comment Spec In Lab Eriberto Melgar MD CHEMISTRY ORDERABLES Performing Organization Address City/State/ZIP Code Phon e Number [address] Lipid Panel (08/06/2016 9:36 AM EST) Patholo gist Method Time Signature Chol, Total 147 <=239 [place] mg/dL [facility] LABORATORY Triglycerides 161 <=199 [facility] mg/dL [facility] LABORATORY HDL 43 >=40 [place] mg/dL [facility] LABORATORY LDL Cholesterol 72 <=190 [facility] mg/dL [facility] LABORATORY Chol/HDL Ratio 3.4 ratio [facility] LABORATORY Lipid See Note TIFFANI Interpretation [facility] LABORATORY Comment: Lipid management should be guided by a p atient? s ASCVD risk, goals and preferences. ACC/AHA Guidelines recommend high intens ity statin if clinical ASCVD or LDL greater than or equal to 190 mg/dL. http://circ.ahajournals.org/content/dusty y/.cir.0267996433.37669.7a Adults aged 40-75 with LDL 70-189 mg/dL should have their 10 year ASCVD risk estimated with the ACC/AHA ASCVD risk es timator http://tools.acc.org/STRWB-Hdrc-Mzsfncfh r/ Statin should be discussed if risk [...] Melgar MD CHEMISTRY ORDERABLES Performing Organization Address City/[facility]/ZIP Code Phon e Number [address] Lipase (08/06/2016 9:36 AM EST) P athologist Signature Lipase 16 0 - 60 [facility] unit/L [facility] LABORATORY Specimen Anatomical Collection Method Collection Time Receive d Time (Source) Location / / Volume Laterality Blood specimen 08/06/2016 9:36 AM 016 9:43 (specimen) EST AM EST Resulting Agency Comment Spec In Lab Eriberto Melgar MD CHEMISTRY ORDERABLES Performing Organization Address City/[facility]/ZIP Code Phon e Number [address] Lavender Tube HOLD (08/06/2016 9:36 AM EST) Patholo gist Method Time Signature Lavender Hold Sample in [facility]. [facility] LABOR[facility]ORY Specimen Anatomical Collection Method Collection Time Receive d Time (Source) Location / / Volume Laterality Blood specimen 08/06/2016 9:36 AM 016 9:44 (specimen) EST AM EST Eriberto Melgar MD HEMATOLOGY ORDERABLES Performing Organization Address City/[facility]/ZIP Code Phon e Number [address] Hemoglobin A1c (08/06/2016 9:36 AM EST) P athologist Signature Hemoglobin A1C 5.4 4.3 - 5.6 [facility] LABORATORY Comment: Reference Range: 4.3 [...] 1, S67-74 Est Avg Gluc 108 mg/dL [facility] LAB[facility] Comment: eAG equivalents for HbA1c percentages: HbA1c(%) ?eAG(mg/dL) 6.0 ?126 6.5 ?140 7.0 ?154 7.5 ?169 8.0 ?183 8.5 ?197 9.0 ?212 9.5 ?226 10.0 ? 240 Limitations: The eAG calculation has not been validated on women, individuals below 18 years old and above 70 years old, and individuals with hemoglobinopathies. Additional resources are available on ADA website: http://[employer]/DHMCadacalc Edinson RGISSOM, Nathaniel J, Ari R, et al. ??Tr anslating the A1C assay into estimated average glucose values. ??Diabetes Care 2008:31(8):0312-6522. Specimen Anatomical Collection Method Collection Time Receive d Time (Source) Location / / Volume Laterality Blood specimen 08/06/2016 9:36 AM 016 9:43 (specimen) EST AM EST Resulting Agency Comment Spec In Lab Eriberto Melgar MD CHEMISTRY ORDERABLES Performing Organization Address City/State/ZIP Code Phon e Number [facility] [place] [address] Gold Tube HOLD (08/06/2016 9:36 AM EST) athologist Signature Gold Hold Sample in [facility] lab. [facility] Specimen Anatomical Collection Method Collection Time Receive d Time (Source) Location / / Volume Laterality Blood specimen 08/06/2016 9:36 AM 016 9:43 (specimen) EST AM EST Eriberto Melgar MD CHEMISTRY ORDERABLES Performing Organization Address City/State/[place] [address] (ABNORMAL) CMP w/fasting Glucose (08/06/2016 9:36 AM EST) athologist Signature Glucose 105 (H) 65 - 99 [facility] Fasting mg/dL [facility] Comment: ?Fasting* Glucose Interpretive C riteria [...] of Diabetes Mellitus, Position Statement from the [place] Diabetes [employer]. ??Diabete s Care, Volume 33, Supplement 1, Aug 2009 BUN 15 10 - 20 mg/dL [facility] Creatinine 1.09 0.80 - 1.50 mg/dL [facility]OR[facility] Comment: Please note that the pediatric reference intervals supplied above were not validated at [place]. Results from pediatri c patients should be interpreted in conjunction to the patient's age, height and muscle mass. Sodium 133 (L) 135 - 145 mmol/L [facility] LABORATORY Potassium 4.5 3.5 - 5.0 mmol/L [facility] LABORATORY Comment: Please note: ??Patients with WBC >100,00 0 may have falsely elevated Potassium levels. ??For accurate Potassium quantif ication in these patients send serum separator tube (gold top) for subsequent determinations. ??Contact the Clinical Chemistry Laboratory if there are any qu estions. Chloride 93 (L) 98 - 107 mmol/L [facility] CO2 25 22 - 31 mmol/L [facility] Anion Gap 15 5 - 15 mmol/L [facility] Calcium 9.5 8.5 - 10.5 mg/dL [facility] LABORATORY Total Protein 7.7 6.1 - 8.0 gm/dL [facility] LABORATORY Albumin 4.9 3.2 - 5.2 gm/dL [facility]OR[facility] AST 25 0 - 39 unit/L [facility] ALT 22 0 - 55 unit/L [facility] Alk Phos 128 (H) 40 - 120 unit/L [facility]OR[facility] Total Bilirubin 1.2 0.2 - 1.3 mg/dL [facility] LABORAT[facility] Bili, Direct 0.2 0.0 - 0.3 mg/dL [facility]OR[facility] Estimated GFR >60 >=60 [facility] Comment: This estimated GFR [...] the following links into your internet browser. [email or web address] [email or web address] Specimen Anatomical Collection Method Collection Time Receive d Time (Source) Location / / Volume Laterality Blood specimen 08/06/2016 9:36 AM 016 9:43 (specimen) EST AM EST Resulting Agency Comment Spec In Lab Eriberto Melgar MD CHEMISTRY ORDERABLES Performing Organization Address City/State/[place] [address] Amylase (08/06/2016 9:36 AM EST) athologist Signature Amylase 55 28 - 100 [facility] [place] unit/L [facility] Specimen Anatomical Collection Method Collection Time Receive d Time (Source) Location / / Volume Laterality Blood specimen 08/06/2016 9:36 AM 016 9:43 (specimen) EST AM EST Resulting Agency Comment Spec In Lab Eriberto Melgar MD CHEMISTRY ORDERABLES Performing Organization Address City/State/ZIP Code Phon e Number [address] 1,25-dihydroxycholecalciferol (08/06/2016 9:36 AM EST) athologist [facility] Vit D ,25 52 18 - 64 [facility] [place] pg/mL [facility] Comment: ADDITIONAL INFORMATIO N This test was developed and its performa nce characteristics determined by [facility] in a manner co nsistent with CLIA requirements. This test has not been gene ared or approved by the U.S. Food and Drug Administration. Test Performed by: [place] [id number] Rigger Chief: Dung Buenrostro II, M.D., Ph.D. Specimen Anatomical Collection Method Collection Time Receive d Time (Source) Location / / Volume Laterality Blood specimen 08/06/2016 9:36 AM 016 (specimen) EST 11:26 AM EST Resulting Agency Comment Spec In Lab Eriberto Melgar MD CHEMISTRY ORDERABLES Performing Organization Address City/State/[place] [address] Protein/Creatinine Ratio, urine (08/06/2016 9:34 AM EST) athologist [facility] U Creatinine 69 mg/dL [facility] U Protein Ran <6 0 - 12 [facility] Prot/Cre Ratio <0.1 ratio [facility] Specimen Anatomical Collection Method Collection Time Receive d Time (Source) Location / / Volume Laterality Urine specimen 08/06/2016 9:34 AM 016 9:45 (specimen) EST AM EST Resulting Agency Comment Spec In Lab Eriberto Melgar MD URINE ORDERABLES Performing Organization Address City/[facility]/ZIP Code Phon e Number [address] Phosphorus, urine, random (08/06/2016 9:34 AM EST) P athologist Signature U Phosphorus <3.0 mg/dL [facility]OR[facility] Specimen Anatomical Collection Method Collection Time Receive d Time (Source) Location / / Volume Laterality Urine specimen 08/06/2016 9:34 AM 016 9:45 (specimen) EST AM EST Resulting Agency Comment Spec In Lab Eriberto Melgar MD URINE ORDERABLES Performing Organization Address City/[facility]/[place] [address] Calcium Creatinine Ratio, random urine (08/06/2016 9:34 AM EST) P athologist Signature U Calcium 2.0 mg/dL [facility] U Creatinine 69 mg/dL [facility] Ca/Cre Ratio 0.03 ratio [facility] Specimen Anatomical Collection Method Collection Time Receive d Time (Source) Location / / Volume Laterality Urine specimen 08/06/2016 9:34 AM 9:45 (specimen) EST AM EST Resulting Agency Comment Spec In Lab Eriberto Melgar MD URINE ORDERABLES Performing Organization Address City/[facility]/[place] [address] Urinalysis with reflex Culture (08/06/2016 9:33 AM EST) Patholo gist Method Time Signature Glucose UA Negative Negative [facility] Protein UA Negative Negative [facility] Bilirubin UA Negative Negative [facility] mg/dL [facility] Comment: Clinical correlation required for positi ve Urine Bilirubin results as false positive may occur with some drugs and d rug related products. If a false positive is suspected a serum total bili sinha should be considered if clinically indicated. Urobilinogen UA Normal Normal mg/dL [facility] pH UA 5.0 5.0 - 8.0 [facility] Blood UA Negative Negative mg/dL [facility] Ketones UA Negative Negative mg/dL [facility] Nitrite UA Negative Negative [facility]OR[facility]ORY Leukocytes UA Negative Negative [facility] LABORATORY Appearance UA Clear Clear [facility] Spec [place] UA 1.010 1.002 - 1.030 [facility] LAB[facility]ORY Color UA Yellow Yellow [facility] RBC UA <1 0 - 3 /HPF [facility] LABORATORY WBC UA <1 0 - 3 /HPF [facility] LABORATORY Culture Reflexed No [facility]OR[facility]ORY Specimen (Source) Anatomical Collection Method Collection Time Re ceived Time Location / / Volume Laterality Urine specimen 08/06/2016 9:33 08/06/2016 9:45 obtained by clean AM EST AM EST catch procedure (specimen) Resulting Agency Comment Spec In Lab Eriberto Melgar MD URINE ORDERABLES Performing Organization Address City/[facility]/ZIP Code Phon e Number [address] U24 Hrs and Volume (08/06/2016 9:30 AM EST) P athologist Signature Hours 24 hour(s) [facility] LABORATORY Urine TV (ml) 3,500 mL [facility] LABORATORY Specimen Anatomical Collection Method Collection Time Receive d Time (Source) Location / / Volume Laterality Urine specimen 08/06/2016 9:30 AM 016 (specimen) EST 10:05 AM EST Resulting Agency Comment Spec In Lab Eriberto Melgar MD CHEMISTRY ORDERABLES Performing Organization Address City/[facility]/ZIP [facility] Phon e Number [address] Uric acid, urine, 24 hour (08/06/2016 9:30 AM EST) P athologist Signature U24 Uric Conc 11.4 mg/dL [facility] LABORATORY U24 Uric Calc 0.40 0.25 - [facility] [address] LABORATORY Specimen Anatomical Collection Method Collection Time Receive d Time (Source) Location / / Volume Laterality Urine specimen 08/06/2016 9:30 AM 016 (specimen) EST 10:06 AM EST Resulting Agency Comment Spec In Lab Eriberto Melgar MD URINE ORDERABLES Performing Organization Address City/State/ZIP Code Phon e Number [address] (ABNORMAL) Protein, urine, 24 hour (08/06/2016 9:30 AM EST) Patholo gist Method Time Signature U24 Prot Conc <6 <=80 mg/dL [facility] LABORATORY U24 Prot Calc <0.21 (H) <=0.[address] LABORATORY Specimen Anatomical Collection Method Collection Time Receive d Time (Source) Location / / Volume Laterality Urine specimen 08/06/2016 9:30 AM 016 (specimen) EST 10:05 AM EST Resulting Agency Comment Spec In Lab Eriberto Melgar MD URINE ORDERABLES Performing Organization Address City/[facility]/[place] [address] Phosphorus, urine, 24 hour (08/06/2016 9:30 AM EST) P athologist Signature U24 Phos Conc 14.3 mg/dL [facility] LABORATORY U24 Phos Calc 0.5 0.4 - 1.[address] LABORATORY Specimen Anatomical Collection Method Collection Time Receive d Time (Source) Location / / Volume Laterality Urine specimen 08/06/2016 9:30 AM 016 (specimen) EST 10:05 AM EST Resulting Agency Comment Spec In Lab Eriberto Melgar MD URINE ORDERABLES Performing Organization Address City/[facility]/ZIP Code Phon e Number [place] [id number] Creatinine, urine, 24 hour (08/06/2016 9:30 AM EST) athologist Signature U24 Creat Conc 32 mg/dL [facility] LABORATORY U24 Creat Calc 1.12 0.80 - [facility] [address] LABORATORY Specimen Anatomical Collection Method Collection Time Receive d Time (Source) Location / / Volume Laterality Urine specimen 08/06/2016 9:30 AM 016 (specimen) EST 10:05 AM EST Resulting Agency Comment Spec In Lab Eriberto Melgar MD URINE ORDERABLES Performing Organization Address City/State/ZIP Code Phon e Number [address] (ABNORMAL) Creatinine Clearance, urine, 24 hour (08/06/2016 9:30 AM EST) athologist Signature Creat 71 (L) 90 - 139 [facility] Clearance mL/min [facility] LABORATORY U24 Creat Conc 32 mg/dL [facility] LABORATORY U24 Creat Calc 1.12 0.80 - [facility] [address] LABORATORY Specimen Anatomical Collection Method Collection Time Receive d Time (Source) Location / / Volume Laterality Urine specimen 08/06/2016 9:30 AM 016 (specimen) EST 10:05 AM EST Resulting Agency Comment Spec In Lab Eriberto Melgar MD URINE ORDERABLES Performing Organization Address City/State/ZIP Code Phon e Number [address] Calcium, urine, 24 hour (08/06/2016 9:30 AM EST) athologist Signature U24 Ca Conc 1.5 mg/dL [facility] LABORATORY U24 Ca Calc 52.5 50.0 - [facility] 300[address] [facility] LABORATORY Comment: Reference Range: 50.0-300.0 mg/ 24 hour based on diet. 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
--- OUTSIDE RECORDS SUMMARY | 2022-03-13 18:28 | XMS_ITS | Encounter Summary ---
:1965 Author Organization [facility] [place] [address] Care Team Providers Name Role Phone Anna Mullen MD Primary Care Provider Reason for Visit Reason Comments Medication Refill Encounter Details Date Type Department Care Team Description 02/29/2016 Refill [facility] [place] [address] [place] [address] [phone] (Wo rk) Social History Tobacco Use Types [...] on filedocumented in this encounter Care Teams Incendiary Powder Mixer Relationship Specialty Start Date End Date Anna Mullen MD PCP - General 12/03/10 [address] [place] [address] documented as of this encounter
--- OUTSIDE RECORDS SUMMARY | 2022-03-13 18:28 | XMS_ITS | Encounter Summary ---
:1965 Author Organization [facility] [place] [address] Care Team Providers Name Role Phone Anna Mullen MD Primary Care Provider Encounter Details Date Type Department Care Team Description 02/11/2017 Laboratory Appointment Lab [address] Pancreas replaced by [facility] [place] [id number] Social History Tobacco Use Types Packs/Day Years [...] Priority Date/Time Associated Comments Diagnosis PROTEIN/CREATININE STAT 02/11/2017 8:21 AM Pancreas replace d Results for this RATIO, URINE EDT by transplant procedure are in the results section. URINALYSIS WITH REFLEX STAT 02/11/2017 8:21 AM Pancreas rep laced Results for this CULTURE EDT by transplant procedure are in the results section. HEMOGRAM STAT 02/11/2017 8:14 AM Pancreas replaced Resu lts for this EDT by transplant procedure are in the results section. DIFFERENTIAL, STAT 02/11/2017 8:14 AM Pancreas replaced Res ults for this AUTOMATED EDT by transplant procedure are in the results section. GOLD TUBE HOLD STAT 02/11/2017 8:14 AM Pancreas replaced Re sults for this EDT by transplant procedure are in the results section. LAVENDER TUBE HOLD STAT 02/11/2017 8:14 AM Pancreas replace d Results for this EDT by transplant procedure are in the results section. TACROLIMUS LEVEL STAT 02/11/2017 8:14 AM Pancreas replaced Results for this EDT by transplant procedure are in the results section. RETICULOCYTE COUNT STAT 02/11/2017 8:14 AM Pancreas replace d Results for this EDT by transplant procedure are in the results section. CBC (WITH DIFF) STAT 02/11/2017 8:14 AM Pancreas replaced EDT by transplant URIC ACID STAT 02/11/2017 8:14 AM Pancreas replaced Resu lts for this EDT by transplant procedure are in the results section. PHOSPHORUS STAT 02/11/2017 8:14 AM Pancreas replaced Resu lts for this EDT by transplant procedure are in the results section. MAGNESIUM STAT 02/11/2017 8:14 AM Pancreas replaced Resu lts for this EDT by transplant procedure are in the results section. LIPASE STAT 02/11/2017 8:14 AM Pancreas replaced Resu lts for this EDT by transplant procedure are in the results section. CHOLESTEROL, TOTAL STAT 02/11/2017 8:14 AM Pancreas replace d Results for this EDT by transplant procedure are in the results section. AMYLASE STAT 02/11/2017 8:14 AM Pancreas replaced Resu lts for this EDT by transplant procedure are in the results section. COMPREHENSIVE STAT 02/11/2017 8:14 AM Pancreas replaced Res ults for this METABOLIC PANEL EDT by transplant procedure a re in (NON-FASTING) the results section. documented in this encounter Results Urinalysis with reflex Culture (02/11/2017 8:21 AM EDT) [facility] Method Time Signature Glucose UA Negative Negative [facility] LAB[facility] Protein UA Negative Negative [facility] mg/dL [facility] LABORATORY Bilirubin UA Negative Negative [facility] mg/dL [facility] LABORATORY Comment: Clinical correlation required for positi ve Urine Bilirubin results as false positive may occur with some drugs and d rug related products. If a false positive is suspected a serum total bili sinha should be considered if clinically indicated. Urobilinogen UA Normal Normal mg/dL [facility] LABORATORY pH UA 7.0 5.0 - 8.[address] [facility] LABORATORY Blood UA Negative Negative mg/dL [facility] LABORATORY Ketones UA Negative Negative mg/dL [facility] LABORATORY Nitrite UA Negative Negative [facility] LABORATORY Leukocytes UA Negative Negative [facility] LABORATORY Appearance UA Clear Clear [facility] LABORATORY Spec Hugo UA 1.006 1.002 - 1.030 [facility] LABORATORY Color UA Straw Yellow [facility] LABORATORY RBC UA Not Present 0 - 3 /HPF [facility] LABORATORY WBC UA Not Present 0 - 3 /HPF [facility] LABORATORY Culture Reflexed No [facility] LABORATORY Specimen (Source) Anatomical Collection Method Collection Time Re ceived Time Location / / Volume Laterality Urine specimen 02/11/2017 8:21 02/11/2017 8:28 obtained by clean AM EDT AM EDT catch procedure (specimen) Resulting Agency Comment Spec In Lab Eriberto Melgar MD URINE ORDERABLES Performing Organization Address City/State/ZIP Code Phon e Number [address] Protein/Creatinine Ratio, urine (02/11/2017 8:21 AM EDT) athologist Signature U Creatinine 42 mg/dL [facility] LABORATORY U Protein Ran <6 0 - 12 [facility] mg/dL [facility] LABORATORY Prot/Cre Ratio <0.1 ratio [facility] LABORATORY Specimen Anatomical Collection Method Collection Time Receive d Time (Source) Location / / Volume Laterality Urine specimen 02/11/2017 8:21 AM 017 8:29 (specimen) EDT AM EDT Resulting Agency Comment Spec In Lab Eriberto Melgar MD URINE ORDERABLES Performing Organization Address City/State/ZIP Code Phon e Number [address] Differential, Automated (02/11/2017 8:14 AM EDT) P athologist Signature Neutrophils % 40.3 % [facility] LABORATORY Neutr Abs (ANC) 2.37 1.70 - [facility] 6.10 [facility] x10(3)/[facility] LABORATORY Lymphocytes % 46.6 % [facility] LABORATORY Lymphocytes Abs 2.7 0.9 - 3.2 [facility] x10(3)/[facility] LABORATORY Monocytes % 9.2 % [facility] LABORATORY Monocyte Abs 0.5 0.3 - 0.9 [facility] x10(3)/[facility] LABORATORY Eosinophils % 2.7 % [facility] LABORATORY Eosinophils Abs 0.2 0.0 - 0.4 [facility] x10(3)/[facility] LABORATORY Basophils % 0.7 % [facility] LABORATORY Basophils Abs 0.0 0.0 - 0.1 [facility] x10(3)/[facility] LABORATORY Immature Gran % 0.50 % [...] Kym Gran Abs 0.03 0.00 - 0.04 x10(3)/[facility] MAR Y [facility] LABORATORY Specimen Anatomical Collection Method Collection Time Receive d Time (Source) Location / / Volume Laterality Blood specimen 02/11/2017 8:14 AM 017 8:25 (specimen) EDT AM EDT Resulting Agency Comment Spec In Lab Eriberto Melgar MD HEMATOLOGY ORDERABLES Performing Organization Address City/State/Z[place] [address] (ABNORMAL) Hemogram (02/11/2017 8:14 AM EDT) Analysis Performed At Patho logist Time Signature WBC 5.9 4.0 - 9.5 [facility] x10(3)/[facility] LABORATORY RBC 4.53 (L) 4.58 - [facility] 5.54 [facility] x10(6)/[facility] LABORATORY Hemoglobin 13.7 13.7 - [facility] 16.5 gm/dL [facility] LABORATORY Hematocrit 39.4 (L) 40.5 - [place] 48.5 % [facility] LABORATORY MCV 87.0 82.9 - [facility] 93.1 [facility] LABORATORY MCH 30.2 27.5 - [facility] 32.1 pg [facility] LABORATORY MCHC 34.8 32.0 - [facility] 35.7 gm/dL [facility] LABORATORY Platelets 242 145 - 357 [facility] x10(3)/[facility] LABORATORY RDWSD 38.9 36.0 - [facility] 45.0 [facility] LABORATORY RDWCV 12.3 11.4 - [facility] 13.8 % [facility] LABORATORY MPV 9.8 7.6 - 12.9 [facility] LABORATORY nRBC % Auto 0.0 % [facility] LABORATORY nRBC Abs Auto 0.000 0.000 - [facility] 0.000 [facility] x10(3)/[facility] LABORATORY Specimen Anatomical Collection Method Collection Time Receive d Time (Source) Location / / Volume Laterality Blood specimen 02/11/2017 8:14 AM 017 8:25 (specimen) EDT AM EDT Resulting Agency Comment Spec In Lab Eriberto Melgar MD HEMATOLOGY ORDERABLES Performing Organization Address City/State/ZIP Code Phon e Number [address] Gold Tube HOLD (02/11/2017 8:14 AM EDT) P athologist Signature Gold Hold Sample in [facility] lab. [facility] LABORATORY Specimen Anatomical Collection Method Collection Time Receive d Time (Source) Location / / Volume Laterality Blood specimen 02/11/2017 8:14 AM 017 8:25 (specimen) EDT AM EDT Eriberto Melgar MD CHEMISTRY ORDERABLES Performing Organization Address City/State/ZIP Code Phon e Number [address] Lavender Tube HOLD (02/11/2017 8:14 AM EDT) Patholo gist Method Time Signature Lavender Hold Sample in [facility]. [facility] LABORATORY Specimen Anatomical Collection Method Collection Time Receive d Time (Source) Location / / Volume Laterality Blood specimen 02/11/2017 8:14 AM 017 8:25 (specimen) EDT AM EDT Eriberto Melgar MD HEMATOLOGY ORDERABLES Performing Organization Address City/[facility]/[place] [address] Uric acid (02/11/2017 8:14 AM EDT) P athologist Signature Uric Acid 6.8 3.5 - 8.5 [facility] mg/dL [facility] LABORATORY Specimen Anatomical Collection Method Collection Time Receive d Time (Source) Location / / Volume Laterality Blood specimen 02/11/2017 8:14 AM 017 8:25 (specimen) EDT AM EDT Resulting Agency Comment Spec In Lab Eriberto Melgar MD CHEMISTRY ORDERABLES Performing Organization Address [facility] Phon e Number [address] Tacrolimus level (02/11/2017 8:14 AM EDT) P athologist Signature Tacrolimus Lvl 6.8 ng/mL [facility] LABORATORY Comment: Trough therapeutic: ??5-15 ng/mL Performed by ultra-performance liquid ch romatography tandem mass spectrometry (UPLCMS/MS). This test was developed and its performa nce characteristics determined by [facility]. It has not been cleared [...] Melgar MD CHEMISTRY ORDERABLES Performing Organization Address City/[facility]/ZIP Code Phon e Number [address] Reticulocyte Count (02/11/2017 8:14 AM EDT) P athologist Signature Retic Ct % 1.2 0.7 - 2.6 [facility] LABORATORY Retic Ct Abs 0.060 0.030 - [facility] 0.120 [facility] x10(6)/[facility] LABORATORY Immature Retic% 2.5 0.0 - 15.6 [facility] K [facility] LABORATORY Reticulated Hgb 34.2 31.3 - [facility] 40.2 pg [facility] LABORATORY Specimen Anatomical Collection Method Collection Time Receive d Time (Source) Location / / Volume Laterality Blood specimen 02/11/2017 8:14 AM 017 8:25 (specimen) EDT AM EDT Resulting Agency Comment Spec In Lab Eriberto Melgar MD HEMATOLOGY ORDERABLES Performing Organization Address City/[facility]/ZIP Code Phon e Number [address] Phosphorus (02/11/2017 8:14 AM EDT) P athologist Signature Phosphorus 2.9 2.5 - 4.5 [facility] mg/dL [facility] LABORATORY Specimen Anatomical Collection Method Collection Time Receive d Time (Source) Location / / Volume Laterality Blood specimen 02/11/2017 8:14 AM 017 8:25 (specimen) EDT AM EDT Resulting Agency Comment Spec In Lab Eriberto Melgar MD CHEMISTRY ORDERABLES Performing Organization Address City/[facility]/ZIP Code Phon e Number [address] Magnesium (02/11/2017 8:14 AM EDT) P athologist Signature Magnesium 0.76 0.69 - 1.07 [facility] mmol/L [facility] LABORATORY Specimen Anatomical Collection Method Collection Time Receive d Time (Source) Location / / Volume Laterality Blood specimen 02/11/2017 8:14 AM 017 8:25 (specimen) EDT AM EDT Resulting Agency Comment Spec In Lab Eriberto Melgar MD CHEMISTRY ORDERABLES Performing Organization Address City/State/Z[place] [address] (ABNORMAL) Comprehensive metabolic panel (non-fasting) (02/11/2017 8:14 AM EDT) P athologist Signature Glucose Lvl 110 65 - 199 [facility] mg/dL [facility] LABORATORY Comment: Diabetes: >=200 mg/dL plus symp toms BUN 14 10 - 20 mg/dL [facility] LABORATORY Creatinine 1.08 0.80 - 1.50 mg/dL [facility] LABOR[facility]ORY Comment: Please note that the pediatric reference intervals supplied above were not validated at [facility]. Results from pediatri c patients should be interpreted in conjunction to the patient's age, height and muscle mass. Sodium 132 (L) 135 - 145 mmol/L [facility] LABORATORY Potassium 4.8 3.5 - 5.0 mmol/L [facility] LABORATORY Comment: Please note: ??Patients with WBC >100,00 0 may have falsely elevated Potassium levels. ??For accurate Potassium quantif ication in these patients send serum separator tube (gold top) for subsequent determinations. ??Contact the Clinical Chemistry Laboratory if there are any qu estions. Chloride 95 (L) 98 - 107 mmol/L [facility] LABORATORY CO2 24 22 - 31 mmol/L [facility]ORAT[facility] Anion Gap 13 5 - 15 mmol/L [facility] LABORATORY Calcium 9.2 8.5 - 10.5 mg/dL [facility] LABORAT[facility] Total Protein 7.4 6.1 - 8.0 gm/dL [facility]OR[facility] Albumin 4.6 3.2 - 5.2 gm/dL [facility] LABORAT[facility] AST 24 0 - 39 unit/L [facility] ALT 24 0 - 55 unit/L [facility] Alk Phos 102 40 - 120 unit/L [facility] LABORATORY Total Bilirubin 1.3 0.2 - 1.3 mg/dL [facility] LABORATORY Bili, Direct 0.2 0.0 - 0.3 mg/dL [facility] LABORATORY Estimated GFR >60 >=60 [place] LABORATORY Comment: This estimated GFR (eGFR) [...] the following links into your internet browser. http://FoodyDirect/DHnkdep http://Food[employer]Direct/DHMCnkf Specimen Anatomical Collection Method Collection Time Receive d Time (Source) Location / / Volume Laterality Blood specimen 02/11/2017 8:14 AM 017 8:25 (specimen) EDT AM EDT Resulting Agency Comment Spec In Lab Eriberto Melgar MD CHEMISTRY ORDERABLES Performing Organization Address City/State/[facility] [place] [address] Cholesterol, total (02/11/2017 8:14 AM EDT) [facility] gist Method Time Signature Chol, Total 138 <=239 [place] mg/dL [facility] LABORATORY Lipid See Note [place] Interpretation [facility] LABORATORY Comment: Lipid management should be guided by a p atient? s ASCVD risk, goals and preferences. ACC/AHA Guidelines recommend high intens ity statin if clinical ASCVD or LDL greater than or equal to 190 mg/dL. http://FoodyDirect/BQD-YAG-Hdpilndpl Adults aged 40-75 with LDL 70-189 mg/dL should have their 10 year ASCVD risk estimated with the ACC/AHA ASCVD risk es timator http://tools.acc.org/BIHXH-Vmvq-Eoixbeht r/ Statin should be discussed if risk [...] Melgar MD CHEMISTRY ORDERABLES Performing Organization Address City/[facility]/[place] [address] Lipase (02/11/2017 8:14 AM EDT) P athologist Signature Lipase 20 0 - 60 [facility] LABORATORY Specimen Anatomical Collection Method Collection Time Receive d Time (Source) Location / / Volume Laterality Blood specimen 02/11/2017 8:14 AM 017 8:25 (specimen) EDT AM EDT Resulting Agency Comment Spec In Lab Eriberto Melgar MD CHEMISTRY ORDERABLES Performing Organization Address City/[facility]/[place] [address] Amylase (02/11/2017 8:14 AM EDT) P athologist Signature Amylase 60 28 - 100 [facility] LABORATORY Specimen Anatomical Collection Method Collection Time Receive d Time (Source) Location / / Volume Laterality Blood specimen 02/11/2017 8:14 AM 017 8:25 (specimen) EDT AM EDT Resulting Agency Comment Spec In Lab Eriberto Mlegar MD CHEMISTRY ORDERABLES Performing Organization Address City/[facility]/ZIP [facility] [place] [address] documented in this encounter Visit Diagnoses Diagnosis 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
--- OUTSIDE RECORDS SUMMARY | 2022-03-13 18:28 | XMS_ITS | Encounter Summary ---
:1965 Author Organization [facility] [place] [address] Care Team Providers Name Role Phone Anna Mullen MD Primary Care Provider Encounter Details Date Type Department Care Team Description 06/30/2017 Hospital Encounter [place] [phone] Social History Tobacco Use Types Packs/Day [...] Associated Diagnosis Comme nts FILM LIBRARY Routine 06/30/2017 12:00 AM Results for this STORAGE ONLY CT EDT procedure ar e in HEAD the results section. documented in this encounter Results Film Library- Storage Only CT Head (06/30/2017 12:00 AM EDT) Specimen (Source) Anatomical Location Collection Method / Collectio n Time Received Time / Laterality Volume Narrative JANE - 07/31/2017 6:25 PM EST This exam is for storage only and is aut o-finalizing. Bruce Moreno III, MD Brigitte FILM LIBRARY ORDERAB LES Performing Organization Address City/State/ZIP Code Phon e Number JANE J[place] documented in this encounter Visit Diagnoses Not on filedocumented in this encounter Care Teams Adult Day Care Worker Relationship Specialty Start Date End Date Anna Mullen MD PCP - General 12/03/10 [address] [place] [address] documented as of this encounter
--- OUTSIDE RECORDS SUMMARY | 2022-03-13 18:28 | XMS_ITS | Encounter Summary ---
:1965 Author Organization [facility] Address [place] [id number] Care Team Providers Name Role Phone Anna Mullen MD Primary Care Provider Reason for Referral Diagnostic Test (Routine) - Specialty Diagnoses / Procedures Referred By Contact Refer red To Contact Radiology Diagnoses Abdominal pain of multiple sites Mauricio Gonsalez MD [facility] Rad Mri Procedures MRI Abdomen With/WO Contrast (GENERIC) MRI Abdomen With Contrast [facility] [place] [id number] [place] [address] Referral ID Status Reason Start Date Expiration Visits Visits Date Requested Authorized [id number] Specialty 08/29/2015 08/28/2016 1 1 Service Requested iagnostic Test (Routine) - Closed Specialty Diagnoses / Procedures Referred By Contact Refer red To Contact Radiology Diagnoses Abdominal pain of multiple sites Mauricio Gonsalez MD [facility] Rad Mri Procedures MRI Pelvis With/WO Contrast [facility] [place] [address] [place] [address] Referral ID Status Reason Start Date Expiration Date Visits V isits Requested Authorized [id number] Closed Specialty 08/29/2015 10/27/2015 1 1 Service Requested Reason for Visit Diagnostic Test (Routine) - Closed Specialty Diagnoses / Procedures Referred By Contact Refer red To Contact Radiology Diagnoses Abdominal pain of multiple sites Mauricio Gonsalez, [facility] Rad Mri Procedures MRI Pelvis With/WO Contrast [facility] [place] [address] [place] [address] Referral ID Status Reason Start Date Expiration Date Visits V isits Requested Authorized [id number] Closed Specialty 08/29/2015 10/27/2015 1 1 Service Requested Encounter Details Date Type Department Care Team Description 09/07/2015 Hospital Encounter MRI at [facility] Mauricio Gonsalez, Ab[facility] multiple sites [facility] [address] GASTROENTEROLOGY [phone] [place] [address] Social History Tobacco Use Types Packs/Day Years [...] Sig Dispensed Refills Start Date End Date psyllium 3.5 gram Take 1 packet by 30 each 0 09/01/2015 Powder in Packet mouth daily. ondansetron (ZOFRAN) 8 Take 1 tablet by 15 tablet 0 015 mg Tablet mouth every 8 hours as needed for Nausea. sildenafil (VIAGRA) 100 Take 1 tablet by mouth as ne eded for Erectile Dysfunction. 90 day supply 60 tablet 6 09/14/2012 mg tablet Dx code :250.60 esomeprazole (NEXIUM) Take 1 capsule by 30 capsule 1 015 02/22/2016 40 mg Capsule, Delayed mouth daily. coul Release(E.C.) not tolerate other PPIs Magnesium Gluconate 27 Take 1 tablet by 60 tablet 3 015 02/22/2016 mg (500 mg) Tablet mouth daily as needed. PROGRAF 1 mg Capsule TAKE 2 CAPSULES BY 120 capsule 9 201402/29/2016 MOUTH TWO TIMES A DAY traZODone (DESYREL) 50 TAKE ONE TABLET BY 90 tablet 3 05/1605/21/2016 mg Tablet MOUTH EVERY EVENING CELLCEPT 250 mg Capsule TAKE TWO CAPSULES BY 360 capsule 2 0 05/09/2015 03/12/2016 MOUTH TWICE A DAY valACYclovir (VALTREX) Take 1,000 mg by 0 02/22/2016 1 gram Tablet mouth 2 times daily. pantoprazole (PROTONIX) TAKE ONE TABLET BY 90 tablet 3 05/201509/09/2015 40 mg Tablet, Delayed MOUTH EVERY DAY Release (E.C.) aspirin 81 mg Tablet, Take 81 mg by mouth 0 08/30/2019 Chewable daily. lisinopril Take 20 mg by mouth 0 08/03 (PRINIVIL;ZESTRIL) 20 daily. mg Tablet levothyroxine Take 150 mcg by 0 2016 (SYNTHROID) 175 mcg mouth daily. tablet traMADol (ULTRAM) 50 mg Take 100 mg by mouth 0 02/22/2016 tablet 2 times daily. acetaminophen (TYLENOL) Take 2 tablets by [...] Priority Date/Time Associated Diagnosis Comme nts MRI ABDOMEN WWO Routine 09/07/2015 10:34 AM Abdominal pain of Results for this CONTRAST EST multiple sites procedure are in the results section. MRI PELVIS SOFT Routine 09/07/2015 10:34 AM Abdominal pain of Results for this TISSUE (GI KILN PACKER) EST multiple sites procedu re are in WWO CONTRAST the results section. documented in this encounter Results MRI Abdomen With/WO Contrast (GENERIC) (09/07/2015 10:34 AM EST) Anatomical Region Laterality Modality Abdomen Magnetic Resonance Specimen (Source) Anatomical Location Collection Method / Collectio n Time Received Time / Laterality Volume Impressions 09/07/2015 3:27 PM EST Impression: 1. 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 There is mild dilation of the minor duct in the a llograft which is of uncertain significance and may be postoperative. T here is no pancreatic edema or fluid collections and no evidence of necrosis. 2. Lumbar spondylosis. 3. Small fat filled umbilical hernia. I have personally reviewed the image(s) and the residents interpretation and agree with the findings, Kacey Iyer at 3:27 PM Narrative 09/07/2015 3:27 PM EST EXAMINATION: MRI PELVIS WITH/WO CONTRAST, MRI ABDOMEN WWO CONTRAST CLINICAL HISTORY: abdominal pain, nausea vomiting weight loss, history of pancreas transport TECHNIQUE: MRI of the lower abdomen and pelvis was performed with Multiplanar T2 images with/ without fat/sat; Multiplana r T1 gradient images with fat sat prior to and following IV administration of 9m l Gadavist COMPARISON: CT abdomen pelvis from 014 FINDINGS: Pancreas: [place] pancreas is diffusely a trophic. Pancreatic allograft is seen in the lower abdomen/pelvis. The transplant has diminished in size compared to the previous CT and is no longer heterogeneo us. The allograft is enhancing homogeneously and there are no peripancr eatic inflammatory changes. The main duct is normal. The minor duct is promin ent measuring 4.5 mm well seen on the axial image 7 series 7. No fluid collect ions are seen surrounding allograft. Liver: No signal abnormalities. Gallbladder: No filling defects. Spleen: Normal. Adrenal glands: Normal. Kidneys: Normal. Bowel: No dilated loops. Abdominal wall: There appears to be a sm all fat filled umbilical hernia. Lymph nodes: No evidence of lymphadenopa thy. Osseous structures: Multilevel degenerat kate changes are noted in the spine. There is dextroscoliosis of the lumbar s pine. Edema is seen in the right paraspinal musculature which is nonspeci fic but could represent strain or denervation atrophy. Procedure Note Kacey Iyer MD - 09/07/2015 EXAMINATION: MRI PELVIS WITH/WO CONTRAST , MRI ABDOMEN WWO CONTRAST CLINICAL HISTORY: abdominal pain, nausea vomiting weight loss, history of pancreas transport TECHNIQUE: MRI of the lower abdomen and pelvis was performed with Multiplanar T2 images with/ without fat/sat; Multiplana r T1 gradient images with fat sat prior to and following IV administration of 9m l Gadavist COMPARISON: CT abdomen pelvis from 014 FINDINGS: Pancreas: [place] pancreas is diffusely a trophic. Pancreatic allograft is seen in the lower abdomen/pelvis. The transplant has diminished in size compared to the previous CT and is no longer heterogeneo us. The allograft is enhancing homogeneously and there are no peripancr eatic inflammatory changes. The main duct is normal. The minor duct is promin ent measuring 4.5 mm well seen on the axial image 7 series 7. No fluid collect ions are seen surrounding allograft. Liver: No signal abnormalities. Gallbladder: No filling defects. Spleen: Normal. Adrenal glands: Normal. Kidneys: Normal. Bowel: No dilated loops. Abdominal wall: There appears to be a sm all fat filled umbilical hernia. Lymph nodes: No evidence of lymphadenopa thy. Osseous structures: Multilevel degenerat kate changes are noted in the spine. There is dextroscoliosis of the lumbar s pine. Edema is seen in the right paraspinal musculature which is nonspeci fic but could represent strain or denervation atrophy. IMPRESSION Impression: 1. 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 There is mild dilation of the minor duct in the a llograft which is of uncertain significance and may be postoperative. T here is no pancreatic edema or fluid collections and no evidence of necrosis. 2. Lumbar spondylosis. 3. Small fat filled umbilical hernia. I have personally reviewed the image(s) and the residents interpretation and agree with the findings, Kacey Iyer at 3:27 PM Mauricio Gonsalez MD IMG MRI ORDERABLES MRI Pelvis With/WO Contrast (09/07/2015 10:34 AM EST) Anatomical Region Laterality Modality Pelvis Magnetic Resonance Specimen (Source) Anatomical Location Collection Method / Collectio n Time Received Time / Laterality Volume Impressions 09/07/2015 3:27 PM EST Impression: 1. 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 There is mild dilation of the minor duct in the a llograft which is of uncertain significance and may be postoperative. T here is no pancreatic edema or fluid collections and no evidence of necrosis. 2. Lumbar spondylosis. 3. Small fat filled umbilical hernia. I have personally reviewed the image(s) and the residents interpretation and agree with the findings, Kacey Iyer at 3:27 PM Narrative 09/07/2015 3:27 PM EST EXAMINATION: MRI PELVIS WITH/WO CONTRAST, MRI ABDOMEN WWO CONTRAST CLINICAL HISTORY: abdominal pain, nausea vomiting weight loss, history of pancreas transport TECHNIQUE: MRI of the lower abdomen and pelvis was performed with Multiplanar T2 images with/ without fat/sat; Multiplana r T1 gradient images with fat sat prior to and following IV administration of 9m l Gadavist COMPARISON: CT abdomen pelvis from 014 FINDINGS: Pancreas: [place] pancreas is diffusely a trophic. Pancreatic allograft is seen in the lower abdomen/pelvis. The transplant has diminished in size compared to the previous CT and is no longer heterogeneo us. The allograft is enhancing homogeneously and there are no peripancr eatic inflammatory changes. The main duct is normal. The minor duct is promin ent measuring 4.5 mm well seen on the axial image 7 series 7. No fluid collect ions are seen surrounding allograft. Liver: No signal abnormalities. Gallbladder: No filling defects. Spleen: Normal. Adrenal glands: Normal. Kidneys: Normal. Bowel: No dilated loops. Abdominal wall: There appears to be a sm all fat filled umbilical hernia. Lymph nodes: No evidence of lymphadenopa thy. Osseous structures: Multilevel degenerat kate changes are noted in the spine. There is dextroscoliosis of the lumbar s pine. Edema is seen in the right paraspinal musculature which is nonspeci fic but could represent strain or denervation atrophy. Procedure Note Kacey Iyer MD - 09/07/2015 EXAMINATION: MRI PELVIS WITH/WO CONTRAST , MRI ABDOMEN WWO CONTRAST CLINICAL HISTORY: abdominal pain, nausea vomiting weight loss, history of pancreas transport TECHNIQUE: MRI of the lower abdomen and pelvis was performed with Multiplanar T2 images with/ without fat/sat; Multiplana r T1 gradient images with fat sat prior to and following IV administration of 9m l Gadavist COMPARISON: CT abdomen pelvis from 014 FINDINGS: Pancreas: [place] pancreas is diffusely a trophic. Pancreatic allograft is seen in the lower abdomen/pelvis. The transplant has diminished in size compared to the previous CT and is no longer heterogeneo us. The allograft is enhancing homogeneously and there are no peripancr eatic inflammatory changes. The main duct is normal. The minor duct is promin ent measuring 4.5 mm well seen on the axial image 7 series 7. No fluid collect ions are seen surrounding allograft. Liver: No signal abnormalities. Gallbladder: No filling defects. Spleen: Normal. Adrenal glands: Normal. Kidneys: Normal. Bowel: No dilated loops. Abdominal wall: There appears to be a sm all fat filled umbilical hernia. Lymph nodes: No evidence of lymphadenopa thy. Osseous structures: Multilevel degenerat kate changes are noted in the spine. There is dextroscoliosis of the lumbar s pine. Edema is seen in the right paraspinal musculature which is nonspeci fic but could represent strain or denervation atrophy. IMPRESSION Impression: 1. 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 There is mild dilation of the minor duct in the a llograft which is of uncertain significance and may be postoperative. T here is no pancreatic edema or fluid collections and no evidence of necrosis. 2. Lumbar spondylosis. 3. Small fat filled umbilical hernia. I have personally reviewed the image(s) and the residents interpretation and agree with the findings, Kacey Iyer at 3:27 PM Mauricio Gonsalez MD IMG MRI ORDERABLES documented in this encounter Visit Diagnoses Diagnosis Abdominal pain of multiple sites Abdominal pain, other specified site documented in this encounter Administered Medications Inactive Administered Medications - up to 3 most recent administrations Medication Order MAR Action Action Date Dose Rate Site gadobutrol (GADAVIST) 1 mMol/mL Given 09/07/2015 9:30 AM EST 8.8 5 mLs injection 8.85 mL 8.85 mL (0.1 mL/kg/dose ? 88.5 kg Order-specific weight), Intravenous, ONCE PRN, 1 dose, Starting on Thu09/07/15 at 0812, Until Thu09/07/15 at 0930, Per Protocol, Routine documented in this encounter Care Teams Communications Operator Relationship Specialty Start Date End Date Anna Mullen MD PCP - General 12/03/10 [address] [place] [address] documented as of this encounter
--- OUTSIDE RECORDS SUMMARY | 2022-03-13 18:28 | XMS_ITS | Encounter Summary ---
:1965 Author Organization [facility] [place] [address] Care Team Providers Name Role Phone Anna Mullen MD Primary Care Provider Reason for Visit Reason Comments Medication Refill Encounter Details Date Type Department Care Team Description 05/21/2016 Refill Solid Organ Transplant at [facility] [place] [address] [place] [address] [phone] (Wo rk) Social History Tobacco Use Types [...] on filedocumented in this encounter Care Teams Joy Operator Helper Relationship Specialty Start Date End Date Anna Mullen MD PCP - General 12/03/10 [address] [place], [place] [address] documented as of this encounter
--- OUTSIDE RECORDS SUMMARY | 2022-03-13 18:28 | XMS_ITS | Encounter Summary ---
:1965 Author Organization [place] [address] Care Team Providers Name Role Phone Anna Mullen MD Primary Care Provider Encounter Details Date Type Department Care Team Description 05/22/2016 Hospital [place] [address] Social History Tobacco Use Types Packs/Day [...] TAKE ONE TABLET BY 90 tablet 3 05/2105/14/2017 mg Tablet MOUTH EVERY EVENING MAG-G 27 mg (500 mg) TAKE ONE TABLET BY 60 tablet 3 016 08/06/2016 Tablet MOUTH EVERY DAY NEEDED MAG-G 27 mg (500 mg) TAKE ONE TABLET BY 60 tablet 3 016 11/27/2016 Tablet MOUTH EVERY DAY NEEDED CELLCEPT 250 mg Capsule TAKE TWO CAPSULES BY 360 capsule 2 0 03/12/2016 12/17/2016 MOUTH TWICE A DAY PROGRAF 1 mg Capsule TAKE TWO CAPSULES BY 120 capsule 11 08/201503/05/2017 MOUTH TWICE A DAY Magnesium Gluconate Take 1 tablet by 0 08/06/2016 27.5 mg (500 mg) Tablet mouth 3 times daily. aspirin 81 mg Tablet, Take 81 mg [...] Name Priority Date/Time Associated Diagnosis Comme nts TACROLIMUS LEVEL Routine 05/22/2016 7:30 AM Resul ts for this EDT procedure are i n the results section. documented in this encounter Results Tacrolimus level (05/22/2016 7:30 AM EDT) P athologist Signature Tacrolimus Lvl 9.5 ng/mL [facility] Comment: Trough therapeutic: ??5-15 ng/mL Performed by ultra-performance liquid ch romatography tandem mass spectrometry (UPLCMS/MS). Specimen Anatomical Collection Method Collection Time Receive d Time (Source) Location / / Volume Laterality Blood specimen Venous Draw / 05/22/2016 7:30 AM 2015 7:58 (specimen) Unknown EDT AM EDT Resulting Agency Comment Spec In Lab Eriberto Melgar MD CHEMISTRY ORDERABLES Performing Organization Address City/State/ZIP Code Phon e Number [place] [id number] documented in this encounter Visit Diagnoses Not on filedocumented in this encounter Care Teams Coach Builder Relationship Specialty Start Date End Date Anna Mullen MD PCP - General 12/03/10 [address] [place] [address] documented as of this encounter
--- OUTSIDE RECORDS SUMMARY | 2022-03-13 18:28 | XMS_ITS | Encounter Summary ---
:1965 Author Organization [facility] [place] [address] Care Team Providers Name Role Phone Anna Mullen MD Primary Care Provider Reason for Visit Reason Comments Medication Refill Encounter Details Date Type Department Care Team Description 04/05/2016 Refill Solid Organ Transplant at Marco Garcia MD [facility] Unique pham [place]OLOG[place] [address] [place] [address] [phone] (Wo rk) Social History Tobacco Use Types [...] on filedocumented in this encounter Care Teams Natural Sciences Department Chair Relationship Specialty Start Date End Date Anna Mullen MD PCP - General 12/03/10 [address] [place], [place] [address] documented as of this encounter
--- OUTSIDE RECORDS SUMMARY | 2022-03-13 18:28 | XMS_ITS | Encounter Summary ---
:1965 Author Organization [facility] [place] [address] Care Team Providers Name Role Phone Anna Mullen MD Primary Care Provider Encounter Details Date Type Department Care Team Description 07/26/2017 Hospital Encounter [place] [address] Social History Tobacco Use Types Packs/Day [...] Associated Diagnosis Comme nts FILM LIBRARY Routine 07/26/2017 12:00 AM Results for this STORAGE ONLY DX EST procedure ar e in CHEST the results section. documented in this encounter Results Film Library- Storage Only DX Chest (07/26/2017 12:00 AM EST) Specimen (Source) Anatomical Location Collection Method / Collectio n Time Received Time / Laterality Volume Narrative JANE - 07/31/2017 6:26 PM EST This exam is for storage only and is aut o-finalizing. Bruce Moreno III, MD Brigitte FILM LIBRARY ORDERAB LES Performing Organization Address City/State/ZIP Code Phon e Number [facility] JANE [place], [place] documented in this encounter Visit Diagnoses Not on filedocumented in this encounter Care Teams Testing Consultant Relationship Specialty Start Date End Date Anna Mullen MD PCP - General 12/03/10 [address] [place] [address] documented as of this encounter
--- OUTSIDE RECORDS SUMMARY | 2022-03-13 18:28 | XMS_ITS | Encounter Summary ---
:1965 Author Organization [place] [address] Care Team Providers Name Role Phone Anna Mullen MD Primary Care Provider Reason for Visit Reason Comments Medication Refill Encounter Details Date Type Department Care Team Description 11/27/2016 [facility] [place] [address] [place] [address] [phone] (Wo rk) Social History Tobacco Use Types [...] on filedocumented in this encounter Care Teams Crowd Controller Relationship Specialty Start Date End Date Anna Mullen MD PCP - General 12/03/10 [address] [place] [address] documented as of this encounter
--- OUTSIDE RECORDS SUMMARY | 2022-03-13 18:28 | XMS_ITS | Encounter Summary ---
:1965 Author Organization [facility] [place] [address] Care Team Providers Name Role Phone Anna Mullen MD Primary Care Provider Encounter Details Date Type Department Care Team Description 07/27/2017 Hospital Encounter [place] [address] Social History Tobacco Use Types Packs/Day [...] Associated Diagnosis Comme nts FILM LIBRARY Routine 07/27/2017 12:00 AM Results for this STORAGE ONLY CT EST procedure ar e in HEAD the results section. documented in this encounter Results Film Library- Storage Only CT Head (07/27/2017 12:00 AM EST) Specimen (Source) Anatomical Location Collection Method / Collectio n Time Received Time / Laterality Volume Narrative JANE - 07/31/2017 6:27 PM EST This exam is for storage only and is aut o-finalizing. Bruce Moreno III, MD [place] FILM LIBRARY ORDERAB LES Performing Organization Address City/State/ZIP Code Phon e Number [facility] [place]ANE [place], [place] documented in this encounter Visit Diagnoses Not on filedocumented in this encounter Care Teams Compliance Nurse Relationship Specialty Start Date End Date Anna Mullen MD PCP - General 12/03/10 [address] [place] [address] documented as of this encounter
--- OUTSIDE RECORDS SUMMARY | 2022-03-13 18:28 | XMS_ITS | Encounter Summary ---
:1965 Author Organization [facility] [place] [address] Care Team Providers Name Role Phone Anna Mullen MD Primary Care Provider Encounter Details Date Type Department Care Team Description 07/29/2016 Abstract Solid Organ Transplant at Yomaira Zamudio [facility] [place] [place] [address] Social History Tobacco Use Types Packs/Day [...] on filedocumented in this encounter Care Teams Ham Doctor Relationship Specialty Start Date End Date Anna Mullen MD PCP - General 12/03/10 [address] [place], [place] [address] documented as of this encounter
--- OUTSIDE RECORDS SUMMARY | 2022-03-13 18:28 | XMS_ITS | Encounter Summary ---
:1965 Author Organization [facility] [place] [address] Care Team Providers Name Role Phone Anna Mullen MD Primary Care Provider Reason for Visit Reason Comments Medication Refill Encounter Details Date Type Department Care Team Description 03/12/2016 Refill [facility] [place] [address] [place] [address] [phone] (Wo rk) Social History Tobacco Use Types [...] on filedocumented in this encounter Care Teams Electronics Production Supervisor Relationship Specialty Start Date End Date Anna Mullen MD PCP - General 12/03/10 [address] [place] [address] documented as of this encounter
--- OUTSIDE RECORDS SUMMARY | 2022-03-13 18:29 | XMS_ITS | Encounter Summary ---
:1965 Author Organization [facility] Address [facility] [address] [place] [address] Care Team Providers Name Role Phone Anna Mullen MD Primary Care Provider Reason for Visit Reason Comments Immunotherapy Pancreas Transplant Follow-up Encounter Details Date Type Department Care Team Description 08/22/2015 Office Visit Solid Organ ClintEriberto haynes 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; [place] [facility] [place] Arlyn Need for prophylactic immunotherapy; [facility]ly [facility] Aft ercare following organ transplant Drive [place] [id number] [place] [address] [phone] Social History Tobacco Use Types Packs/Day Years Used Date Never Smoker Smokeless Tobacco: Never Used Alcohol Use Standard Drinks/Week Comments No 0 (1 standard drink = 0.6 oz pure alcoho l) history of abuse, stopped 1996 Sex Assigned at Date Recorded Male 05/29/2021 11:28 PM EDT documented as of this encounter Last Filed Vital Signs Vital Sign Reading Time Taken Comments Blood Pressure 140/77 08/22/2015 10:14 AM EST Pulse 70 08/22/2015 10:14 AM EST Temperature - - Respiratory Rate 16 08/22/2015 10:14 AM EST Oxygen Saturation 98% 08/22/2015 10:14 AM EST Inhaled Oxygen Concentration - - Weight 88.6 kg (195 lb 6.4 oz) 08/22/2015 10:14 AM EST Height 182.9 cm (6') 08/22/2015 10:14 AM EST Body Mass Index 26.5 08/22/2015 10:14 AM EST documented in this encounter Progress Notes Eriberto Melgar MD - 08/22/2015 10:25 AM EST [facility] Transplant Nephrology Follow Up Reese Hsu [id number] Transplant ID: Date: 08/22/2015 Patient: Reese Hsu Transplant Date: 08/28/13 Organ(s) Pancreas [place] organ diagnosis: Diabetes Mellitus - Type I (Pancreas) 2 years FU Last FU 03/07/2015 Transplant ID: Mr. Reese Hsu is a White Not nor 49 y.o. male who is Status Post Pancreas transplantation. Mr. Reese Hsu presents to clinic for routine follow-up of care ofhis Pancreas transplantation. His chronic back issues have been addressed both by the Spine Clinic and his Orthopedic surgeon. History of Present Illness: 49 y.o. male for routine 6 monthly follow up. He did undergo spine surgery at [facility] which seemed to work initially but unfortunately he got recurrent sciatica. He is taking tramadol and acetominophen forhis pain. Otherwise takes great care of his pancreas and drinks about 4-5 L/day. 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 Has good energy. Following was addressed with the patient, he is uptodate with his HCM needs. Back pain is still there 7/10 in intensity Has been having abd pain x 3 months PCP asked to get endoscopy So he got endoscopy for abd pain few wks ago which did not show any abn finding takes pantoprazole his gabapentin was stopped it seems to help a little. Milk makes it worse. Has been taking lactate pills. Biopsy were taken with endoscopy results pending. Continues to take tramadol and tylenol for back pain control. Healthcare maintenance for a transplant recipient: Immunizations (no live virus or modified bacterial vaccines) Prevnar 13 once in a lifetime Pneumovax 23 every 5 years Tdap every 10 years Annual flu shot Annual PCP exam Annual YULISSA and PSA for males over 40 need one Annual pap gyne for females (pap if cervix present; visual inspection if no cervix present) Annual mammogram for females over 40, younger than 40 if family hx positive Every 5 year colonoscopy after age 50 last year Monthly self skin exam, daily spf 50 sunblock, annual derm consult if hx of skin cancer Annual eye exam Semi annual dental evaluation with prophylactic antibiotics Cardiac stress test after age 50, every 3 years for diabetics, every 5 for non diabetics Bone density assessment every 9-12 years post transplant Annual fasting lipid profile Annual PTH-Vit D3 assessment until normalized Annual 24 hour timed urine for creatinine, protein, calcium, phosphate, magnesium ROS: Denies fevers, chills, nausea, vomiting, diarrhea, abd pain, chest pain, sob. Medications: Prior to Admission medications Medication Sig Start Date End Date Taking? Authorizing Provider PROGRAF 1 mg Capsule TAKE 2 CAPSULES BY MOUTH TWO TIMES A DAY 05/29/15 Yes Eriberto Melgar MD traZODone (DESYREL) 50 mg Tablet TAKE ONE TABLET BY MOUTH EVERY EVENING 05/16/15 Yes Eriberto Melgar MD CELLCEPT 250 mg Capsule TAKE TWO CAPSULES BY MOUTH TWICE A DAY 05/09/15 Yes Eriberto Melgar MD valACYclovir (VALTREX) 1 gram Tablet Take 1,000 mg by mouth 2 times daily. Yes PROVIDER, HISTORICAL ondansetron (ZOFRAN) 4 mg Tablet TAKE 1 TABLET BY MOUTH EVERY 8 HOURS NEEDED FOR NAUSEA 10/10/14 Yes Eriberto Melgar MD pantoprazole (PROTONIX) 40 mg Tablet, Delayed Release (E.C.) TAKE ONE TABLET BY MOUTH EVERY DAY 09/08/14 Yes Eriberto Melgar MD aspirin 81 mg Tablet, Chewable Take 81 mg by mouth daily. Yes PROVIDER, HISTORICAL lisinopril (PRINIVIL;ZESTRIL) 20 mg Tablet Take 20 mg by mouth daily. Yes PROVIDER, HISTORICAL levothyroxine (SYNTHROID) 175 mcg tablet Take 175 mcg by mouth daily. Yes PROVIDER, HISTORICAL Magnesium Gluconate 27 mg (500 mg) Tab Take 1 tablet by mouth daily as needed. Yes PROVIDER, HISTORICAL traMADol (ULTRAM) 50 mg tablet Take 100 mg by mouth 2 times daily. 07/08/13 Yes PROVIDER, HISTORICAL acetaminophen (TYLENOL) 325 mg tablet Take 2 tablets by mouth every 4 hours as needed (Pain, Fever. if oral temperature greater than 38.5 Centigrade). 1/3/14 Yes Lonnie Alarcon MD sildenafil (VIAGRA) 100 mg tablet Take 1 tablet by mouth as needed for Erectile Dysfunction. 90 day supply Dx code :250.60 09/14/12 Yes Una Lassiter APRN citalopram (CELEXA) 20 mg tablet Take 40 mg by mouth daily. Yes PROVIDER, HISTORICAL Allergies / ADRs: Allergies Allergen Reactions ??? Nexium [Esomeprazole Magnesium] Diarrhea Any acid reflux medication causes severe diarrhea ??? Prilosec [Omeprazole Magnesium] Diarrhea ??? Reglan [Metoclopramide Hcl] TD ??? Simvastatin PHYSICAL EXAM: Filed Vitals: 08/22/15 1014 BP: 140/77 Pulse: 70 Resp: 16 Gen - AAO x 3 in NAD [...] for REESE HSU ( ) as of 08/22/2015 10:35 Ref. Range 08/22/2015 09:41 08/22/2015 09:42 WBC Latest Range: 4.0-10.0 x10(3)/mcL 5.2 RBC Latest Range: 4.63-6.08 x10(6)/mcL 4.22 (L) Hemoglobin Latest Range: 13.7-17.5 gm/dL 12.2 (L) Hematocrit Latest Range: 40.0-51.0 % 36.1 (L) MCV Latest Range: 79.0-92.0 fL 85.5 MCH Latest Range: 25.6-32.2 pg 28.9 MCHC Latest Range: 32.0-36.5 gm/dL 33.8 RDWSD Latest Range: 35.0-46.0 fL 38.6 RDWCV Latest Range: 10.9-14.4 % 12.6 Platelets Latest Range: 145-370 x10(3)/mcL 232 MPV Latest Range: 9.0-12.0 fL 9.9 Plat Immature % Latest Range: 0.0-7.4 % 2.[address] % Latest Range: 0.5-2.4 % 1.[address] Abs Latest Range: 0.027-0.095 x10(6)/mcL 0.060 Immature Retic% Latest Range: 2.3-15.9 % 3.9 Reticulated Hgb Latest Range: 28.5-38.9 pg 35.6 Neutr Abs (ANC) Latest Range: 1.50-6.30 x10(3)/mcL 2.33 Neutrophils % Latest Units: % 45.1 Immature Gran % Latest Units: % 0.20 Lymphocytes % Latest Units: % 46.4 Monocytes % Latest Units: % 6.2 Eosinophils % Latest Units: % 1.7 Basophils % Latest Units: % 0.4 Kym Gran Abs Latest Range: 0.00-0.05 x10(3)/mcL 0.01 Lymphocytes Abs Latest Range: 1.0-3.6 x10(3)/mcL 2.4 Monocyte Abs Latest Range: 0.2-1.0 x10(3)/mcL 0.3 Eosinophils Abs Latest Range: 0.0-0.5 x10(3)/mcL 0.1 Basophils Abs Latest Range: 0.0-0.2 x10(3)/mcL 0.0 Sodium Latest Range: 135-145 mmol/L 137 Potassium Latest Range: 3.5-5.0 mmol/L 4.3 Chloride Latest Range: 98-107 mmol/L 100 CO2 Latest Range: 22-31 mmol/L 26 Anion Gap Latest Range: 5-15 mmol/L 11 BUN Latest Range: 10-20 mg/dL 14 Creatinine Latest Range: 0.80-1.50 mg/dL 1.07 Estimated GFR Latest Range: >=60 >60 Glucose Fasting Latest Range: 65-99 mg/dL 98 Calcium Latest Range: 8.5-10.5 mg/dL 9.0 Magnesium Latest Range: 0.69-1.07 mmol/L 0.68 (L) Hemoglobin A1C Latest Range: 4.3-5.6 % 5.8 (H) Est Avg Gluc Latest Units: mg/dL 120 Phosphorus Latest Range: 2.5-4.5 mg/dL 3.2 Uric Acid Latest Range: 3.5-8.5 mg/dL 6.0 Total Protein Latest Range: 6.1-8.0 gm/dL 7.2 Albumin Latest Range: 3.2-5.2 gm/dL 4.6 Total Bilirubin Latest Range: 0.2-1.3 mg/dL 0.9 Bili, Direct Latest Range: 0.0-0.3 mg/dL 0.2 Alk Phos Latest Range: 40-120 unit/L 105 AST Latest Range: 0-39 unit/L 24 ALT Latest Range: 0-55 unit/L 23 Amylase Latest Range: 28-100 unit/L 58 Lipase Latest Range: 0-60 unit/L 18 Chol, Total Latest Range: <=199 mg/dL 118 HDL Latest Range: >=40 mg/dL 45 Chol/HDL Ratio Latest Units: ratio 2.6 Triglycerides Latest Range: <=149 mg/dL 59 LDL Cholesterol Latest Range: <=99 mg/dL 61 Color UA Latest Range: Yellow Straw Appearance UA Latest Range: Clear Clear Spec [place] UA Latest Range: 1.002-1.030 1.009 pH UA Latest Range: 5.0-8.0 6.0 Protein UA Latest Range: Negative mg/dL Negative Glucose UA Latest Range: Negative mg/dL Negative Ketones UA Latest Range: Negative mg/dL Negative Bilirubin UA Latest Range: Negative mg/dL Negative Urobilinogen UA Latest Range: Normal mg/dL Normal Blood UA Latest Range: Negative mg/dL Negative Leukocytes UA Latest Range: Negative mcL Negative Nitrite UA Latest Range: Negative Negative WBC UA Latest Range: 0-3 /HPF Not Present RBC UA Latest Range: 0-3 /HPF <1 Squam Epith UA Latest Range: <=4 /HPF <1 Culture Reflexed No range found No Impression/ Plan: Transplant Status S/p panc transplant 24 months out, stable graft function Recovering from spine surgery which was not corrective unfortunately Encouraged to continue with 4-5 L/day Epigastric pain: can take liquid tums or 40 BID of nexium daily. avoid tramadol/high dose tylenol asthis may have been contributing towards stomach issues Immunosuppression Dual therapy continue that for now PO4/Mg Mg lower side will need prescription for that he is on supploment Hypertension Stable Infectious prophylaxis valcyte stopped as he is Ab + Takes valtrex for recurrent cold sores uses when he has skin break Follow up: 6 months with repeat monthly labs Seen and Discussed w/ Dr. Talia Garcia MD Nephrology fellow Pager # [phone] I reviewed all of the above findings and assessment of Dr. Garcia and formulated the recommendations which accurately reflect mine. 30 Min., >50% in direct face to face dependency counselor. documented in this encounter Plan of Treatment Not on filedocumented as of this encounter Results (ABNORMAL) Hemoglobin A1c (08/22/2015 9:42 AM EST) Analysis Performed At [facility] Time Signature Hemoglobin A1C 5.8 (H) 4.3 - 5.6 CERNER % MILLENNIUM Comment: Reference Range: 4.3 - 5.6% 5.7 [...] Mellitus, Diabetes Care 2013; 36: Suppl. 1, S67-58 Est Avg Gluc 120 mg/dL CERNER MILLENNIUM Comment: eAG equivalents for HbA1c percentages: HbA1c(%) ?eAG(mg/dL) 6.0 ?126 6.5 ?140 7.0 ?154 7.5 ?169 8.0 ?183 8.5 ?197 9.0 ?212 9.5 ?226 10.0 ? 240 Limitations: The eAG calculation has not been validated on women, individuals below 18 years old and above 70 years old, and individuals with hemoglobinopathies. Additional resources are available on [facility] website: [email or web address] Edinson GRISSOM, Nathaniel J, Ari R, et al. ??Tr anslating the A1C assay into estimated average glucose values. ??Diabetes Care 2008:31(8):3748-1018. Specimen Anatomical Collection Method Collection Time Receive d Time (Source) Location / / Volume Laterality Blood specimen 08/22/2015 9:42 AM 015 9:48 (specimen) EST AM EST Resulting Agency Comment Spec In Lab Eriberto Melgar MD CHEMISTRY ORDERABLES Performing Organization Address City/[facility]/ZIP Code Phon e Number [address] [facility] Lavender Tube HOLD (08/22/2015 9:42 AM EST) Patholo gist Method Time Signature Lavender Hold Sample in [facility] Specimen Anatomical Collection Method Collection Time Receive d Time (Source) Location / / Volume Laterality Blood specimen 08/22/2015 9:42 AM 015 9:48 (specimen) EST AM EST Eriberto Melgar MD HEMATOLOGY ORDERABLES Performing Organization Address City/[facility] Code Phon e Number [address] [facility] Gold Tube HOLD (08/22/2015 9:42 AM EST) P athologist Signature Gold Hold Sample in [facility] Specimen Anatomical Collection Method Collection Time Receive d Time (Source) Location / / Volume Laterality Blood specimen 08/22/2015 9:42 AM 015 9:48 (specimen) EST AM EST Eriberto Melgar MD CHEMISTRY ORDERABLES Performing Organization Address City/[facility] Code Phon e Number [address] [facility] (ABNORMAL) VIT D Total Evaluation (08/22/2015 9:42 AM EST) P athologist Signature 25-OH Vit D 24 (L) 30 - 100 [facility] Total ng/mL [facility] Comment: Deficient <10 ng/mL Insufficient 10 to 29 ng/mL Sufficient 30 to 100 ng/mL Potential Intoxication >100 ng/mL According to the [place] National Osteoporosi s Foundation, Vitamin D concentrations >30 ng/mL are sufficient to protect bone health. ??The National Kidney Foundation has similarly stated that pat ients with Vitamin D concentrations <30ng/mL should be considered to be insu fficient or deficient. http://Reveal/DHnatlkidneyfoundat ion http://Reveal/DHVitD The [employer] i[employer] Vitamin D Immunoassay detec ts both 25-OH Vitamin D2 and 25-OH Vitamin D3, but only a total Vitamin D c oncentration is reported. Specimen Anatomical Collection Method Collection Time Receive d Time (Source) Location / / Volume Laterality Blood specimen 08/22/2015 9:42 AM 015 9:48 (specimen) EST AM EST Resulting Agency Comment Spec In Lab Eriberto Melgar MD CHEMISTRY ORDERABLES Performing Organization Address City/State/ZIP Code Phon e Number [address] [facility] MILLENNIUM 1,25-dihydroxycholecalciferol (08/22/2015 9:42 AM EST) athologist Signature Vit D 1,25 49 18 - 64 CERNER pg/mL [facility] Comment: Test Performed by: [place] [id number] Veterans' Counselor: Dung Buenrostro II, M.D., Ph.D. Specimen Anatomical Collection Method Collection Time Receive d Time (Source) Location / / Volume Laterality Blood specimen 08/22/2015 9:42 AM 015 (specimen) EST 11:00 AM EST Resulting Agency Comment Spec In Lab Eriberto Melgar MD CHEMISTRY ORDERABLES Performing Organization Address City/State/[place] [facility] [place] [address] CERNER MILLENNIUM PTH (08/22/2015 9:42 AM EST) athologist Signature PTH 56 15 - 65 CERNER pg/mL MILLENNIUM Specimen Anatomical Collection Method Collection Time Receive d Time (Source) Location / / Volume Laterality Blood specimen 08/22/2015 9:42 AM 015 9:48 (specimen) EST AM EST Resulting Agency Comment Spec In Lab Eriberto Melgar MD CHEMISTRY ORDERABLES Performing Organization Address City/[facility]/ZIP [place] [address] CERNER MILLENNIUM Lipase (08/22/2015 9:42 AM EST) P athologist Signature Lipase 18 0 - 60 CERNER unit/L MILLENNIUM Specimen Anatomical Collection Method Collection Time Receive d Time (Source) Location / / Volume Laterality Blood specimen 08/22/2015 9:42 AM 015 9:48 (specimen) EST AM EST Resulting Agency Comment Spec In Lab Eriberto Melgar MD CHEMISTRY ORDERABLES Performing Organization Address City/[facility]/ZIP Code Phon e Number [address] CERNER MILLENNIUM Amylase (08/22/2015 9:42 AM EST) P athologist Signature Amylase 58 28 - 100 CERNER unit/L MILLENNIUM Specimen Anatomical Collection Method Collection Time Receive d Time (Source) Location / / Volume Laterality Blood specimen 08/22/2015 9:42 AM 015 9:48 (specimen) EST AM EST Resulting Agency Comment Spec In Lab Eriberto Melgar MD CHEMISTRY ORDERABLES Performing Organization Address City/[facility] Phon e Number [address] CERNER MILLENNIUM Tacrolimus level (08/22/2015 9:42 AM EST) P athologist Signature Tacrolimus Lvl 5.7 ng/mL CERNER MILLENNIUM Comment: Trough therapeutic: 5-15 ng/mL Specimen Anatomical Collection Method Collection Time Receive d Time (Source) Location / / Volume Laterality Blood specimen 08/22/2015 9:42 AM 015 (specimen) EST 11:05 AM EST Resulting Agency Comment Spec In Lab Eriberto Melgar MD CHEMISTRY ORDERABLES Performing Organization Address City/State/[place] [address] CERNER MILLENNIUM Uric acid (08/22/2015 9:42 AM EST) P athologist Signature Uric Acid 6.0 3.5 - 8.5 CERNER mg/dL MILLENNIUM Specimen Anatomical Collection Method Collection Time Receive d Time (Source) Location / / Volume Laterality Blood specimen 08/22/2015 9:42 AM 015 9:48 (specimen) EST AM EST Resulting Agency Comment Spec In Lab Eriberto Melgar MD CHEMISTRY ORDERABLES Performing Organization Address City/[facility]/ZIP Code Phon e Number [address] CERNER MILLENNIUM Phosphorus (08/22/2015 9:42 AM EST) P athologist Signature Phosphorus 3.2 2.5 - 4.5 CERNER mg/dL MILLENNIUM Specimen Anatomical Collection Method Collection Time Receive d Time (Source) Location / / Volume Laterality Blood specimen 08/22/2015 9:42 AM 015 9:48 (specimen) EST AM EST Resulting Agency Comment Spec In Lab Eriberto Melgar MD CHEMISTRY ORDERABLES Performing Organization Address City/[facility]/ZIP Code Phon e Number [address] CERNER MILLENNIUM (ABNORMAL) Magnesium (08/22/2015 9:42 AM EST) P athologist Signature Magnesium 0.68 (L) 0.69 - 1.07 CERNER mmol/L MILLENNIUM Specimen Anatomical Collection Method Collection Time Receive d Time (Source) Location / / Volume Laterality Blood specimen 08/22/2015 9:42 AM 015 9:48 (specimen) EST AM EST Resulting Agency Comment Spec In Lab Eriberto Melgar MD CHEMISTRY ORDERABLES Performing Organization Address City/State/[place] [address] CERNER MILLENNIUM Lipid panel (fasting) (08/22/2015 9:42 AM EST) P athologist Signature Chol, Total 118 <=199 mg/dL CERNER MILLENNIUM Comment: Recommendations of the NCEP Adult Treatm ent Panel for the following risk cutoff thresholds for the [place] popul[place] n: Desirable: <200 mg/dL Borderline High: 200-239 mg/dL High: > or = 240 mg/dL Triglycerides 59 <=149 mg/dL CERNER MILLENN IUM Comment: Reference Range: Normal triglycerides: ??<150 mg/dL Borderline high: ??150-199 mg/dL High: ??200-499 mg/dL Very high: ??>ag=548 mg/dL MARQUEZ 2001; 285(19):7981-1246 HDL 45 >=40 mg/dL CERNER MILLENNIUM Comment: Reference range: ??Low HDL: ?? < 40 mg/dL ??Normal: ?40-60 mg/dL ??Desirable: > 60 mg/dL MARQUEZ 2001; 285(19):6103-2224 LDL Cholesterol 61 <=99 mg/dL CERNER LALA NIUM Comment: Reference range: ?? Optimal: ?<100 mg/dL ?? Near Optimal/Above Optimal: ?? 100-1 29 mg/dL ?? Borderline high: ?130-159 mg/dL ?? High: ? 160-189 mg/dL ?? Very high: ?>ph=425 mg/dL MARQUEZ 2001: 285(19):2126-3818 Chol/HDL Ratio 2.6 ratio CERNER MILLENNI UM Comment: A Cholesterol to HDL ratio below 4:1 is desirable. ??Studies suggest that increased CAD risk occurs at ratios abov e 5 for females and above 6 for men. ? [place] Heart Association ??(htt p://www.americanheart.org) ? Joy Int Med, 1994; 121:641 ? AM J Med, 1998; 105(1A):48S Specimen Anatomical Collection Method Collection Time Receive d Time (Source) Location / / Volume Laterality Blood specimen 08/22/2015 9:42 AM 015 9:48 (specimen) EST AM EST Resulting Agency Comment Spec In Lab Eriberto Melgar MD CHEMISTRY ORDERABLES Performing Organization Address [facility] [place] [address] CERNER MILLENNIUM Reticulocyte Count (08/22/2015 9:42 AM EST) P athologist Signature Retic Ct % 1.5 0.5 - 2.4 CERNER % MILLENNIUM Retic Ct Abs 0.060 0.027 - CERNER 0.095 MILLENNIUM x10(6)/mcL Immature Retic% 3.9 2.3 - 15.9 CERNER % MILLENNIUM Reticulated Hgb 35.6 28.5 - CERNER 38.9 pg MILLENNIUM Plat Immature % 2.5 0.0 - 7.4 CERNER % MILLENNIUM Specimen Anatomical Collection Method Collection Time Receive d Time (Source) Location / / Volume Laterality Blood specimen 08/22/2015 9:42 AM 015 9:48 (specimen) EST AM EST Resulting Agency Comment Spec In Lab Eriberto Melgar MD HEMATOLOGY ORDERABLES Performing Organization Address City/[facility] Code [place] [address] CERNER MILLENNIUM CMP w/fasting Glucose (08/22/2015 9:42 AM EST) P athologist Signature Glucose 98 65 - 99 CERNER Fasting mg/dL MILLENNIUM Comment: ?Fasting* Glucose Interpretive C riteria Normal [...] of Diabetes Mellitus, Position Statement from the [place] Diabetes Association. ??Diabete s Care, Volume 33, Supplement 1, Aug 2009 BUN 14 10 - 20 mg/dL CERNER MILLENNIU M Creatinine 1.07 0.80 - 1.50 mg/dL CERNER MILL ENNIUM Comment: Please note that the pediatric reference intervals supplied above were not validated at [facility] Results from pediatri c patients should be interpreted in conjunction to the patient's age, height and muscle mass. Sodium 137 135 - 145 mmol/L CERNER LALA NIUM Potassium 4.3 3.5 - 5.0 mmol/L CERNER LALA NIUM Comment: Please note: ??Patients with WBC >100,00 0 may have falsely elevated Potassium levels. ??For accurate Potassium quantif ication in these patients send serum separator tube (gold top) for subsequent determinations. ??Contact the Clinical Chemistry Laboratory if there are any qu estions. Chloride 100 98 - 107 mmol/L CERNER MILLENN IUM CO2 26 22 - 31 mmol/L CERNER MILLENNI UM Anion Gap 11 5 - 15 mmol/L CERNER MILLENNIU M Calcium 9.0 8.5 - 10.5 mg/dL CERNER LALA NIUM Total Protein 7.2 6.1 - 8.0 gm/dL CERNER MIL LENNIUM Albumin 4.6 3.2 - 5.2 gm/dL CERNER MILLENN IUM AST 24 0 - 39 unit/L CERNER MILLENNIU M ALT 23 0 - 55 unit/L CERNER MILLENNIU M Alk Phos 105 40 - 120 unit/L CERNER MILLENN IUM Total Bilirubin 0.9 0.2 - 1.3 mg/dL CERNER M ILLENNIUM Bili, Direct 0.2 0.0 - 0.3 mg/dL CERNER MILL ENNIUM Estimated GFR >60 >=60 CERNER MILLENNIU M Comment: This estimated GFR (eGFR) value was [...] the following links into your internet browser. http://Reveal/DHnkdep http://Reveal/DHMCnkf Specimen Anatomical Collection Method Collection Time Receive d Time (Source) Location / / Volume Laterality Blood specimen 08/22/2015 9:42 AM 015 9:48 (specimen) EST AM EST Resulting Agency Comment Spec In Lab Eriberto Melgar MD CHEMISTRY ORDERABLES Performing Organization Address City/[facility]/ZIP Code Phon e Number [address] CERNER MILLENNIUM Protein/Creatinine Ratio, urine (08/22/2015 9:41 AM EST) P athologist Signature U Creatinine 51 mg/dL CERNER MILLENNIUM U Protein Ran <6 0 - 12 CERNER mg/dL MILLENNIUM Prot/Cre Ratio <0.1 ratio CERNER MILLENNIUM Specimen Anatomical Collection Method Collection Time Receive d Time (Source) Location / / Volume Laterality Urine specimen 08/22/2015 9:41 AM 015 9:48 (specimen) EST AM EST Resulting Agency Comment Spec In Lab Eriberto Melgar MD URINE ORDERABLES Performing Organization Address City/[facility]/ZIP Code Phon e Number [address] CERNER MILLENNIUM Phosphorus, urine, random (08/22/2015 9:41 AM EST) P athologist Signature U Phosphorus 12.0 mg/dL CERNER MILLENNIUM Specimen Anatomical Collection Method Collection Time Receive d Time (Source) Location / / Volume Laterality Urine specimen 08/22/2015 9:41 AM 015 9:48 (specimen) EST AM EST Resulting Agency Comment Spec In Lab Eriberto Melgar MD URINE ORDERABLES Performing Organization Address City/[facility] Phon e Number [address] CERNER MILLENNIUM Calcium Creatinine Ratio, random urine (08/22/2015 9:41 AM EST) P athologist Signature U Calcium 2.6 mg/dL CERNER MILLENNIUM U Creatinine 51 mg/dL [facility] Ca/Cre Ratio 0.05 ratio [facility] Specimen Anatomical Collection Method Collection Time Receive d Time (Source) Location / / Volume Laterality Urine specimen 08/22/2015 9:41 AM 015 9:48 (specimen) EST AM EST Resulting Agency Comment Spec In Lab Eriberto Melgar MD URINE ORDERABLES Performing Organization Address City/[facility]/ZIP Code Phon e Number [address] [facility] Creatinine, urine, random (08/22/2015 9:41 AM EST) athologist Signature U Creatinine 51 mg/dL [facility] Specimen Anatomical Collection Method Collection Time Receive d Time (Source) Location / / Volume Laterality Urine specimen 08/22/2015 9:41 AM 015 9:48 (specimen) EST AM EST Resulting Agency Comment Spec In Lab Eriberto Melgar MD URINE ORDERABLES Performing Organization Address City/[facility] [place] [address] [facility] Urinalysis with reflex Culture (08/22/2015 9:41 AM EST) [facility] Method Time Signature Glucose UA Negative Negative CERNER mg/dL MILLENNIUM Protein UA Negative Negative CERNER mg/dL MILLENNIUM Bilirubin UA Negative Negative CERNER mg/dL MILLENNIUM Comment: Clinical correlation required for positi ve Urine Bilirubin results as false positive may occur with some drugs and d rug related products. If a false positive is suspected a serum total bili sinha should be considered if clinically indicated. Urobilinogen UA Normal Normal mg/dL [facility]ILL ENN[facility] pH UA 6.0 5.0 - 8.0 [facility] MILLENNIUM Blood UA Negative Negative mg/dL CERNER MILLENNI UM Ketones UA Negative Negative mg/dL [facility] MILLENN IUM Nitrite UA Negative Negative CERNER MILLENNIUM Leukocytes UA Negative Negative mcL [facility] NIUM Appearance UA Clear Clear CERNER MILLENNIU M Spec [place] UA 1.009 1.002 - 1.030 [facility] MIL LENNIUM Color UA Straw Yellow CERNER MILLENNIUM RBC UA <1 0 - 3 /HPF CERNER MILLENNIUM WBC UA Not Present 0 - 3 /HPF CERNER MILLENNIUM Squam Epith UA <1 <=4 /HPF CERNER MILLENNI UM Culture Reflexed No CERNER LAL[facility] NIUM Specimen Anatomical Collection Method Collection Time Receive d Time (Source) Location / / Volume Laterality Urine specimen 08/22/2015 9:41 AM 015 9:47 (specimen) EST AM EST Resulting Agency Comment Spec In Lab Eriberto Melgar MD URINE ORDERABLES Performing Organization Address City/State/ZIP Code Phon e Number [address] CERNER MILLENNIUM Uric acid, urine, 24 hour (08/22/2015 5:00 AM EST) athologist Signature U24 Uric Conc 10.4 mg/dL CERNER MILLENNIUM U24 Uric Calc 0.37 0.25 - CERNER 0.80 MILLENNIUM gm/24hr Specimen Anatomical Collection Method Collection Time Receive d Time (Source) Location / / Volume Laterality Urine specimen 08/22/2015 5:00 AM 015 (specimen) EST 10:30 AM EST Resulting Agency Comment Spec In Lab Eriberto Melgar MD URINE ORDERABLES Performing Organization Address City/[facility]/ZIP Code Phon e Number [address] CERNER MILLENNIUM Phosphorus, urine, 24 hour (08/22/2015 5:00 AM EST) P athologist Signature U24 Phos Conc 17.1 mg/dL CERNER MILLENNIUM U24 Phos Calc 0.6 0.4 - 1.3 CERNER gm/24hr MILLENNIUM Specimen Anatomical Collection Method Collection Time Receive d Time (Source) Location / / Volume Laterality Urine specimen 08/22/2015 5:00 AM 015 (specimen) EST 10:30 AM EST Resulting Agency Comment Spec In Lab Eriberto Melgar MD URINE ORDERABLES Performing Organization Address City/State/ZIP Code Phon e Number [address] CERNER MILLENNIUM Calcium, urine, 24 hour (08/22/2015 5:00 AM EST) P athologist Signature U24 Ca Conc 2.1 mg/dL CERNER MILLENNIUM U24 Ca Calc 75.6 50.0 - CERNER 300.0 MILLENNIUM mg/24hr Comment: Reference Range: 50.0-300.0 mg/ 24 hour based on diet. Specimen Anatomical Collection Method Collection Time Receive d Time (Source) Location / / Volume Laterality Urine specimen 08/22/2015 5:00 AM 015 (specimen) EST 10:30 AM EST Resulting Agency Comment Spec In Lab Eriberto Melgar MD URINE ORDERABLES Performing Organization Address City/State/ZIP Code Phon e Number [address] CERNER MILLENNIUM (ABNORMAL) Creatinine, urine, 24 hour (08/22/2015 5:00 AM EST) Analysis Performed At [facility] logist Time Signature U24 Creat Conc 54 mg/dL CERNER MILLENNIUM U24 Creat Calc 1.94 (H) 0.80 - CERNER 1.90 MILLENNIUM gm/24hr Specimen Anatomical Collection Method Collection Time Receive d Time (Source) Location / / Volume Laterality Urine specimen 08/22/2015 5:00 AM 015 (specimen) EST 10:30 AM EST Resulting Agency Comment Spec In Lab Eriberto Melgar MD URINE ORDERABLES Performing Organization Address City/State/ZIP [place] [address] CERNER MILLENNIUM (ABNORMAL) Creatinine Clearance, urine, 24 hour (08/22/2015 5:00 AM EST) Analysis Performed At Patho logist Time Signature Creat 126 90 - 139 CERNER Clearance mL/min MILLENNIUM U24 Creat Conc 54 mg/dL CERNER MILLENNIUM U24 Creat Calc 1.94 (H) 0.80 - CERNER 1.90 MILLENNIUM gm/24hr Specimen Anatomical Collection Method Collection Time Receive d Time (Source) Location / / Volume Laterality Urine specimen 08/22/2015 5:00 AM 015 (specimen) EST 10:30 AM EST Resulting Agency Comment Spec In Lab Eriberto Melgar MD URINE ORDERABLES Performing Organization Address City/State/ZIP Code Phon e Number [address] CERNER MILLENNIUM (ABNORMAL) Protein, urine, 24 hour (08/22/2015 5:00 AM EST) P athologist Signature U24 Prot Conc <6 <=80 mg/dL CERNER MILLENNIUM Comment: result rechecked-MM U24 Prot Calc <0.22 (H) <=0.15 gm/24hr CERNER MILL ENNIUM Specimen Anatomical Collection Method Collection Time Receive d Time (Source) Location / / Volume Laterality Urine specimen 08/22/2015 5:00 AM 015 (specimen) EST 10:30 AM EST Resulting Agency Comment Spec In Lab Eriberto Melgar MD URINE ORDERABLES Performing Organization Address City/State/ZIP Code Phon e Number [address] CERNER MILLENNIUM documented in this encounter Visit Diagnoses Diagnosis 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
--- OUTSIDE RECORDS SUMMARY | 2022-03-13 18:29 | XMS_ITS | Encounter Summary ---
:1965 Author Organization [facility] [place] [address] Care Team Providers Name Role Phone Anna Mullen MD Primary Care Provider Encounter Details Date Type Department Care Team Description 04/02/2015 Hospital Encounter Laboratory [facility] [place] [phone] [facility] [place], [place] [address] (Wo rk) Social History Tobacco [...] Sig Dispensed Refills Start Date End Date sildenafil (VIAGRA) 100 Take 1 tablet by mouth as ne eded for Erectile Dysfunction. 90 day supply 60 tablet 6 09/14/2012 mg tablet Dx code :250.60 gabapentin (NEURONTIN) Take 100 mg by mouth 0 08/22/2015 100 mg Capsule 3 times daily. valACYclovir (VALTREX) Take 1,000 mg by 0 02/22/2016 1 gram Tablet mouth 2 times daily. ondansetron (ZOFRAN) 4 TAKE 1 TABLET BY 90 tablet 9 015 08/30/2015 mg Tablet MOUTH EVERY 8 HOURS NEEDED FOR NAUSEA pantoprazole (PROTONIX) TAKE ONE TABLET BY 90 tablet 3 05/201509/09/2015 40 mg Tablet, Delayed MOUTH EVERY DAY Release (E.C.) CELLCEPT 250 mg Capsule Take 2 capsules by 360 capsule 3 08/201305/09/2015 mouth 2 times daily. Diabetic Supplies, Fax form to [facility] 100 each 12 06/26/2014 [facility] 4 times per day traZODone (DESYREL) 50 Take 1 tablet by 90 tablet 3 014 05/16/2015 mg TabletIndications: mouth nightly. Insomnia, unspecified tacrolimus (PROGRAF) 1 Take 2 capsules by 120 capsule 11 03/201405/29/2015 mg Capsule mouth 2 times daily. aspirin 81 mg Tablet, Take 81 mg by mouth 0 08/30/2019 Chewable daily. lisinopril Take 20 mg by mouth 0 08/03 (PRINIVIL;ZESTRIL) 20 daily. mg Tablet levothyroxine Take 150 mcg by 0 2016 (SYNTHROID) 175 mcg mouth daily. tablet Blood Sugar Diagnostic Use To check BG four 400 each 3 11/201308/13/2015 (ONE TOUCH ULTRA TEST) times daily. Dx. test strip 250.0 Magnesium Gluconate 27 Take 1 tablet by 0 08/22/2015 mg (500 mg) Tab mouth daily as needed. traMADol (ULTRAM) 50 mg Take 100 mg [...] Name Priority Date/Time Associated Diagnosis Comme nts LAVENDER TUBE HOLD Routine 04/02/2015 8:05 AM Res ults for this EDT procedure are i n the results section. TACROLIMUS LEVEL Routine 04/02/2015 8:05 AM Resul ts for this EDT procedure are i n the results section. documented in this encounter Results Lavender Tube HOLD (04/02/2015 8:05 AM EDT) [facility] Signature Lavender Hold Sample in [facility] lab. [facility] Specimen Anatomical Collection Method Collection Time Receive d Time (Source) Location / / Volume Laterality Blood specimen Venous Draw / 04/02/2015 8:05 AM 2014 8:56 (specimen) Unknown EDT PM EDT Eriberto Melgar MD HEMATOLOGY ORDERABLES Performing Organization Address City/[facility]/ZIP [facility] [place] [address] [facility] Tacrolimus level (04/02/2015 8:05 AM EDT) P athologist Signature Tacrolimus Lvl 5.0 ng/mL [facility] Comment: Trough therapeutic: 5-15 ng/mL Specimen Anatomical Collection Method Collection Time Receive d Time (Source) Location / / Volume Laterality Blood specimen Venous Draw / 04/02/2015 8:05 AM 2014 8:09 (specimen) Unknown EDT AM EDT Resulting Agency Comment Spec In Lab Eriberto Melgar MD CHEMISTRY ORDERABLES Performing Organization Address City/[facility]/ZIP Code Phon e Number [address] [facility] documented in this encounter Visit Diagnoses Not on filedocumented in this encounter Care Teams Communications Tech Relationship Specialty Start Date End Date Anna Mullen MD PCP - General 12/03/10 [address] [place] [address] documented as of this encounter
--- OUTSIDE RECORDS SUMMARY | 2022-03-13 18:29 | XMS_ITS | Encounter Summary ---
:1965 Author Organization [facility] [place] [address] Care Team Providers Name Role Phone Meaghan Mullen MD Primary Care Provider Reason for Visit Auth/Cert - Closed Specialty Diagnoses / Procedures Referred By Contact Refer red To Contact Diagnoses N/V S/P PANCREATIC TRANSPLANT Procedures EMERGENCY IPI Referral ID Status Reason Start Date Expiration Date Visits Requ ested Visits Authorized [id number] Closed 1 1 Encounter Details Date Type Department Care Team Description 08/30/2015 - Hospital Encounter 4 [facility] Rafael Leonardo Keller, 09/01/2015 [facility] [address] [place] [id number] [place] [address] [phone] Social History Tobacco Use Types Packs/Day Years Used Date Never Smoker Smokeless Tobacco: Never Used Alcohol Use Standard Drinks/Week Comments No 0 (1 standard drink = 0.6 oz pure alcoho l) history of abuse, stopped 1996 Sex Assigned at Date Recorded Male 05/29/2021 11:28 PM EDT documented as of this encounter Last Filed Vital Signs Vital Sign Reading Time Taken Comments Blood Pressure 134/74 09/01/2015 8:00 AM EST Pulse 77 09/01/2015 8:00 AM EST Temperature 36.9 ??C (98.4 ??F) 09/01/2015 8:00 AM EST Respiratory Rate 17 09/01/2015 8:00 AM EST Oxygen Saturation 100% 09/01/2015 8:00 AM EST Inhaled Oxygen Concentration - - Weight 84.8 kg (186 lb 14.4 oz) 09/01/2015 5:00 AM EST Height 182.9 cm (6' 0.01) 08/30/2015 7:00 PM EST Body Mass Index 25.34 08/30/2015 7:00 PM EST documented in this encounter Discharge Summaries Eriberto Melgar MD - 09/01/2015 8:52 AM EST General Surgery Discharge Summary Name: Richard Hsu Date of : 1965 Attending: Dr. Melgar Date of Admission: 08/30/2015 Date of Discharge: 09/01/2015 Primary Diagnosis: dehydration secondary to diarrhea History of Present Illness: Mr. Hsu is a 49M with PMHx significant for chronic back pain and DM1s/p DDPT 08/27/13 who presents with worsening abdominal pain x1 week, vomiting/diarrhea x24hr and dehydration. Mr. Hsu has generally done well since his transplant - he has been compliant with his immunosuppression regimen (currently Prograf 2mg BID, Cellcept 500mg BID) and diligent with hydration taking 4-5L PO daily. He reports some general issues with nausea since his transplant, which was felt to be related to his longstanding diabetic gastroparesis. He began developing abdominal pain in the last month for which he has been followed by Dr. Bhakta; he stopped taking his gabapentin and tramadol which he takes for chronic lower back pain as this was felt to be contributory. He underwent EGD 08/15/15 thatwas significant only for chronic inactive gastritis with intestinal metaplasia, H. Pylori negative. Last Thursday he was at [employer] and moved about 300lb of sand bags to his truck. Later that evening, he noticed a painful golfball-sized lump in his epigastric area. Over the ensuing week he developedprogressively worse abdominal pain, nausea, and anorexia; he reports intermittent fevers and chills but has not measured his temperature; he's lost 10lb by his home records over the past 5 days. Last night he was rolling over in bed, experienced a sharp pain to his epigastrium, and noted that the bulge seemed to reduce. He promptly began having emesis and diarrhea which persisted overnight and prompted him to return to the Transplant Clinic today. Here he was noted to have elevation in his Cr to 1.35 (~1.0 baseline); he is currently receiving 2L IVF bolus and being admitted. At this time he reportshis abdominal pain is improved. Nauseated but not vomiting. No chest pain or dyspnea. No fever or chills. Continues to have diarrhea. Hospital Course: Richard Hsu is a 49 y.o. male who was admitted on 08/30/2015 for hydration andadjustment of immunosuppression, as well as for evaluation and management of his diarrhea. Pt was managed with IV fluids and labs for C. Diff as well as giardia, norovirus , ova and parasite as well as cryptosporidium assays were sent. On HD # 1 pt's C. Diff returned negative and his diarrhea resolvedon its own. He did have an episode of moderate epigastric pain, which resolved overnight. Pt is scheduled to follow up with Dr. Tyler with additional MRI work-up to help delineate the etiology of this pain. On 09/01/2015 pt met criteria for discharge. He was tolerating a diet, able to maintain his hydration with oral intake, his pain was controlled and his diarrhea had resolved. Vital Signs Last value Range last 24hrs Temperature Temp: 36.9 ??C (98.4 ??F) Temp: [36.6 ??C (97.9 ??F)-36.9 ??C (98.4 ??F)] Heart Rate Heart Rate: 77 Heart Rate: [68-79] Blood Pressure BP: 134/74 mmHg BP: (134-160)/(71-101) Respiratory Rate Resp: 17 Resp: [16-20] SpO2 SpO2: 100 % SpO2: [98 %-100 %] Physical Exam: Gen: NAD CV: Reg Pulm: non-labored Abd: soft, epigastric tenderness resolved, non-distended Ext: warm, well perfused, no edema Neuro: A&O x3 Pertinent Lab Data: Recent Labs 08/31/15 0642 08/30/15 1142 WBC 6.2 9.9 HGB 12.7* 15.2 HCT 36.4* 44.5 PLATELET 196 255 Recent Labs 09/01/15 0521 08/31/15 0642 08/30/15 1142 NA 133* 134* 136 K 4.7 4.5 5.5* CL 95* 99 98 CO2 25 21* 21* BUN 11 12 17 CREATININE 1.01 0.99 1.35 GLUCOSE 106 117 139 CALCIUM 8.8 8.9 10.2 MAGNESIUM -- -- 0.94 PHOS -- -- 2.0* Imaging: No results found. Condition at discharge: Stable Mental Status: awake and alert, oriented x 3 Medications: Your Medications New Medications Dose Details psyllium 3.5 gram Pwpk Take 1 packet by mouth daily. 1 packet Quantity: 30 each Refills: 0 Continued medications, unchanged Dose Details acetaminophen 325 mg Tab Commonly known as: TYLENOL Take 2 tablets by mouth every 4 hours as needed (Pain, Fever. if oral temperature greater than 38.5 Centigrade). 650 mg Quantity: 30 tablet Refills: 0 aspirin 81 mg Chew Take 81 mg by mouth daily. 81 mg Refills: 0 celeXA 20 mg Tab Take 40 mg by mouth daily. Generic drug: citalopram 40 mg Refills: 0 CELLCEPT 250 mg Cap TAKE TWO CAPSULES BY MOUTH TWICE A DAY Generic drug: mycophenolate Quantity: 360 capsule Refills: 2 esomeprazole 40 mg Cpdr Commonly known as: NexIUM Take 1 capsule by mouth daily. coul not tolerate other PPIs 40 mg Quantity: 30 capsule Refills: 1 levothyroxine 175 mcg Tab Commonly known as: SYNTHROID Take 175 mcg by mouth daily. 175 mcg Refills: 0 lisinopril 20 mg Tab Commonly known as: PRINIVIL;ZESTRIL Take 20 mg by mouth daily. 20 mg Refills: 0 Magnesium Gluconate 27 mg (500 mg) Tab Take 1 tablet by mouth daily as needed. 1 tablet Quantity: 60 tablet Refills: 3 ondansetron 8 mg Tab Commonly known as: ZOFRAN Take 1 tablet by mouth every 8 hours as needed for Nausea. 8 mg Quantity: 15 tablet Refills: 0 pantoprazole 40 mg Tbec Commonly known as: PROTONIX TAKE ONE TABLET BY MOUTH EVERY DAY Quantity: 90 tablet Refills: 3 PROGRAF 1 mg Cap TAKE 2 CAPSULES BY MOUTH TWO TIMES A DAY Generic drug: tacrolimus Quantity: 120 capsule Refills: 9 sildenafil 100 mg Tab Commonly known as: VIAGRA - Take 1 tablet by mouth as needed for Erectile Dysfunction. 90 day supply - Dx code :250.60 100 mg Quantity: 60 tablet Refills: 6 traMADol 50 mg Tab Commonly known as: ULTRAM Take 100 mg by mouth 2 times daily. 100 mg Refills: 0 traZODone 50 mg Tab Commonly known as: DESYREL TAKE ONE TABLET BY MOUTH EVERY EVENING Quantity: 90 tablet Refills: 3 valACYclovir 1 gram Tab Commonly known as: VALTREX Take 1,000 mg by mouth 2 times daily. 1000 mg Refills: 0 Disposition: Home Allergies: Allergies Allergen Reactions ??? Nexium [Esomeprazole Magnesium] Diarrhea Any acid reflux medication causes severe diarrhea ??? Prilosec [Omeprazole Magnesium] Diarrhea ??? Reglan [Metoclopramide Hcl] TD ??? Simvastatin Outpatient Services/Studies: No discharge procedures on file. Instructions Given to Patient at Discharge: Patient Instructions Recommendations Please add fiber to your diet, take 1 tbsp daily. Complications Call your doctor with the following signs of infection: ?? a temperature over 101.4 F ?? Return of significant diarrhea ?? difficulty maintaining hydration Contact your Doctor Office Hours: Thursday through Thursday, 8am-5pm. Call On weekends or after office hours: Call [phone] and ask the air brake operator to page the General Surgery Resident medication specialist. Future Appointments Provider Department Dept Phone 09/07/2015 6:50 AM [facility] MR NURSE [facility] [phone] 09/07/2015 7:50 AM [facility] MR 1 [facility] [phone] 02/22/2016 8:00 AM LAB, THREE L [facility] Lab 3L [phone] 02/22/2016 9:00 AM Eriberto Melgar MD Transplant [phone] Signed: Robert Bhagat MD General Surgery, PGY2 Pager [phone] Primary Agustina Physician: MEAGHAN MULLEN MD [address] / [place] [address] I reviewed all of the above findings and assessment of Dr. Bhagat and formulated the recommendations which accurately reflect mine. 30 Min., >50% in direct face to face elder counselor. No diarrheal stools, no pain. Ready for discharge. F/U with Dr. Bhakta as previously scheduled. Start fiber and become reguarly about diet and BM habits. documented in this encounter Discharge Instructions Patient InstructionsRobert Bhagat MD - 09/01/2015 9:26 AM EST Recommendations Please add fiber to your diet, take 1 tbsp daily. Complications Call your doctor with the following signs of infection: ?? a temperature over 101.4 F ?? Return of significant diarrhea ?? difficulty maintaining hydration Contact your Doctor Office Hours: Thursday through Thursday, 8am-5pm. Call On weekends or after office hours: Call [phone] and ask the air brake operator to page the General Surgery Resident medication specialist. documented in this encounter Medications at Time [...] tablet daily. documented as of this encounter Progress Notes Max Alcantar MD - 08/31/2015 4:51 PM EST Called by RN to assess pt's abdominal pain. Patient reports, again, moderate- severe epigastric pain,with nausea, no emesis. Reports that his abd pain is very much meal associated, which has resulted in significant weight loss. Pancreatitis unlikely given normal amylase and lipase. Gastric or duodenalulcer ruled out given recent EGD negative for ulcers. [place] to most likely be neuropathic vs gastroparesis associated pain. Pain apparently worsened since recent d/c of his gabapentin by Dr. Bhakta. Cannot take Reglan due to h/o tardive dyskinesia. On exam: Abd: Soft, +BS, very tender to palpation at epigastric area, non-tender otherwise all four quadrants, no rebound pain, no guarding, negative frances sign. Plan: - 1x IV dilaudid 0.2, then 2mg dilaudid PO prn - Defer work-up to primary team - Patient encouraged to drink fluids as tolerated to prevent dehydration Eriberto Melgar MD - 08/31/2015 9:09 AM EST General Surgery Daily Progress Note ID Richard Hsu 1965 [id number] Events: - no acute events - continues to have significant diarrhea S: States that pain resolved, feels much better today, tolerating clears well and had some jasen crackers this morning, continues to have diarrheal BMs - now passing gas as well O: Temp: [36.7 ??C (98.1 ??F)-37.1 ??C (98.8 ??F)] Heart Rate: [68-92] Resp: [16] BP: (130-161)/(65-89) SpO2: [92 %-100 %] Intake/Output Summary (Last 24 hours) at 08/31/15 0909 Last data filed at 08/31/15 0851 Gross per 24 hour Intake 5065 ml Output 5100 ml Net -35 ml Exam: Gen: NAD CV: Reg Pulm: non-labored Abd: soft, epigastric tenderness resolved, non-distended Ext: warm, well perfused, no edema Neuro: A&O x3 Labs: Lab Results Component Value Date/Time WBC 6.2 08/31/2015 06:42 AM HEMOGLOBIN 12.7* 08/31/2015 06:42 AM PLATELETS 196 08/31/2015 06:42 AM Lab Results Component Value Date/Time SODIUM 134* 08/31/2015 06:42 AM POTASSIUM 4.5 08/31/2015 06:42 AM CHLORIDE 99 08/31/2015 06:42 AM CO2 21* 08/31/2015 06:42 AM BUN 12 08/31/2015 06:42 AM CREATININE 0.99 08/31/2015 06:42 AM Mirco: c diff and stool studies pending A/P: Richard Guillen Aracelis 49 y/o M s/p pancreas transplant in Jul 2013 now admitted with diarrhea/nausea/vomiting with dehydration, most likely gastroenteritis, but ruling out c diff. Improved with IVF resuscitation. Tolerating clears with no appreciable ongoing diarrhea currently. Abdominal pain resolved. Awaiting c diff result. N: citalopram, trazadone at night, tylenol PRN CV: HD stable no issues, ASA, lisinopril Pulm: no issues GI: regular diet : voiding FEN/Renal: HLIV, lytes normalized Endo: BG well controlled, levothyroxine Heme: no issues IMMUNOSUPP: MMF 500 BID, tacro 2 BID ID: awaiting c diff Cx and stool studies, if c diff negative will treat with immodium (4mg with every diarrheal BM up to total 16mg/day) Prophy: DVT - Ambulatory, PPI Dispo: likely home tomorrow I reviewed all of the above findings and assessment of Dr. Retana and formulated the recommendationswhich accurately reflect mine. 30 Min., >50% in direct face to face elder counselor. I spoke to him re: diet dexter. Fiber. He lacks this routinely. I suggested Fiber Con or Benefiber. Given his intestinal patch from his panc transplant and his immunosuppression I told him his signs and symptoms are very common and can occur whenever, even years post tx. He must maintain a degree of regularity using fiber, avoiding foods which both induce constipation or diarrhea. He has NOT been diligent about that. And many times post tx he can develop acute intestinal obstruction which generally resolves with clear liquids and heating pad. I believe his epigastric mass was not a hernia, rather an acute outlet obstruction. Rhonda Almanza RN - 08/30/2015 5:04 PM EST Patient Name: Richard Hsu Patient Age: 49 y.o. Birthdate: 1965 Admit date: 08/30/2015 Attending Physician: Iraj Keller MD Pt arrived to room 407. He is alert and oriented with no complaints other than some discomfort at the epigastric area. His IV was started to run NS at 100, he was attached to [employer] and ordered his meal. Will monitor closely. Pt given call holder with instruction on use. documented in this encounter H&P Notes Nando Rodriguez MD - 08/30/2015 1:27 PM EST Transplant Surgery Resident H&P Note Name: Richard Hsu Room: 2MCB/2MCB-A DOA: 08/30/2015 Attending: Dr. Keller CC: dehydration HPI: Mr. Hsu is a 49M with PMHx significant for chronic back pain and DM1 s/p DDPT 08/27/13 who presents with worsening abdominal pain x1 week, vomiting/diarrhea x24hr and dehydration. Mr. Hsu has generally done well since his transplant - he has been compliant with his immunosuppression regimen (currently Prograf 2mg BID, Cellcept 500mg BID) and diligent with hydration taking 4-5L PO daily. He reports some general issues with nausea since his transplant, which was felt to be related to his longstanding diabetic gastroparesis. He began developing abdominal pain in the last month for which he has been followed by Dr. Bhakta; he stopped taking his gabapentin and tramadol which he takes for chronic lower back pain as this was felt to be contributory. He underwent EGD 08/15/15 thatwas significant only for chronic inactive gastritis with intestinal metaplasia, H. Pylori negative. Last Thursday he was at [employer] and moved about 300lb of sand bags to his truck. Later that evening, he noticed a painful golfball-sized lump in his epigastric area. Over the ensuing week he developedprogressively worse abdominal pain, nausea, and anorexia; he reports intermittent fevers and chills but has not measured his temperature; he's lost 10lb by his home records over the past 5 days. Last night he was rolling over in bed, experienced a sharp pain to his epigastrium, and noted that the bulge seemed to reduce. He promptly began having emesis and diarrhea which persisted overnight and prompted him to return to the Transplant Clinic today. Here he was noted to have elevation in his Cr to 1.35 (~1.0 baseline); he is currently receiving 2L IVF bolus and being admitted. At this time he reportshis abdominal pain is improved. Nauseated but not vomiting. No chest pain or dyspnea. No fever or chills. Continues to have diarrhea. PM/SH: Patient Active Problem List Diagnosis Code ??? LBP radiating to right leg M54.5 ??? Diabetes mellitus E11.9 ??? Stroke-like symptoms R29.90 ??? Hypertension I10 ??? Edema R60.9 ??? Gastroparesis due to DM E11.43, K31.84 ??? Migraine G43.909 ??? Pancreatitis K85.9 ??? Immunosuppression D89.9 ??? Ulnar neuropathy G56.20 ??? Nevus D22.9 ??? Vitiligo L80 Past Medical History Diagnosis Date ??? Severe headache ??? Gastroparesis ??? IDDM (insulin dependent diabetes mellitus) ??? HTN (hypertension) ??? Hypothyroid ??? Depression ??? ASCVD (arteriosclerotic cardiovascular disease) ??? Papillary fibroelastoma of heart aortic valve ??? Hypertensive disease 17 years old high blood pressure ??? Musculoskeletal disease 11 years old curve and twisted spine, tardive dysc..(Severe twichinglimbs ??? Breathing problem recently sleep apnea being seen for it ??? Chronic pain 11 years old joints, back recently right leg ??? Circulatory disease recently right leg nubming, tingling, sore veins getting black ??? Diabetes 17 years old on pump and waiting list pancreas transplant ??? Digestive problems 22 years old gastopresis ??? Genital disease, male 5 years ago ED ??? Heart disorder last three years angina, heart murmur ??? Headache(784.0) since 12 years old migraaines ??? Nervous system disorder 1977 stroke age [age] ??? Hormone disorder awhile ago thryoid low i think ??? Other ill-defined conditions(799.89) 3 years ago Tardive dyskinesia Past Surgical History Procedure Laterality Date ??? Created by interface [email or web address] Procedure Date: 07/18/2009 ??? Created by interface Entered not Verified Procedure Date: 10/24/2010 ??? Upper gi endoscopy, exam 12/31/2011 UPPER GI ENDOSCOPY performed by CLAYTON BHAKTA at [facility] ENDOSCOPY ??? Pro upper gi endoscopy, biopsy 12/31/2011 UPPER GASTROINTESTINAL ENDOSCOPY,WITH BIOPSY SINGLE OR MULTIPLE performed by CLAYTON BHAKTA at [facility] ENDOSCOPY ??? Shoulder surgery ??? Carpal tunnel release ??? Appendectomy ??? Pro unlisted procedure, musculoskeletal system, general 10 years carpel tunnel ??? 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 Pro transplant allograft pancreas 08/28/2013 @PANCREATIC TRANSPLANT performed by Iraj Keller MD at [facility] MAIN OR ??? Pro transplant, prep donor pancreas 08/28/2013 @PREPARATION CADAVERIC PANCREAS, STANDARD performed by Iraj Keller MD at [facility] MAIN OR ??? Pro colonoscopy, diagnostic N/A 10/24/2014 COLONOSCOPY, DIAGNOSTIC performed by Meaghan Rapp MD at [facility] ENDOSCOPY ??? Pro upper gi endoscopy, biopsy N/A 08/15/2015 EGD WITH BIOPSY performed by Clayton Bhakta MD at [facility] ENDOSCOPY ALL: Allergies Allergen Reactions ??? Nexium [Esomeprazole Magnesium] Diarrhea Any acid reflux medication causes severe diarrhea ??? Prilosec [Omeprazole Magnesium] Diarrhea ??? Reglan [Metoclopramide Hcl] TD ??? Simvastatin MED: No current facility-administered medications on file prior to encounter. Current Outpatient Prescriptions on File Prior to Encounter Medication Sig Dispense Refill ??? ondansetron (ZOFRAN) 8 mg Tablet Take 1 tablet by mouth every 8 hours as needed for Nausea. 15 tablet 0 ??? esomeprazole (NEXIUM) 40 mg Capsule, Delayed Release(E.C.) Take 1 capsule by mouth daily. coul not tolerate other PPIs 30 capsule 1 ??? Magnesium Gluconate 27 mg (500 mg) Tablet Take 1 tablet by mouth daily as needed. 60 tablet 3 ??? PROGRAF 1 mg Capsule TAKE 2 CAPSULES BY MOUTH TWO TIMES A DAY 120 capsule 9 ??? traZODone (DESYREL) 50 mg Tablet TAKE ONE TABLET BY MOUTH EVERY EVENING 90 tablet 3 ??? CELLCEPT 250 mg Capsule TAKE TWO CAPSULES BY MOUTH TWICE A DAY 360 capsule 2 ??? valACYclovir (VALTREX) 1 gram Tablet Take 1,000 mg by mouth 2 times daily. ??? pantoprazole (PROTONIX) 40 mg Tablet, Delayed Release (E.C.) TAKE ONE TABLET BY MOUTH EVERY DAY 90 tablet 3 ??? aspirin 81 mg Tablet, Chewable Take 81 mg by mouth daily. ??? lisinopril (PRINIVIL;ZESTRIL) 20 mg Tablet Take 20 mg by mouth daily. ??? levothyroxine (SYNTHROID) 175 mcg tablet Take 175 mcg by mouth daily. ??? traMADol (ULTRAM) 50 mg tablet Take 100 mg by mouth 2 times daily. ??? acetaminophen (TYLENOL) 325 mg tablet Take 2 tablets by mouth every 4 hours as needed (Pain, Fever. if oral temperature greater than 38.5 Centigrade). 30 tablet ??? sildenafil (VIAGRA) 100 mg tablet Take 1 tablet by mouth as needed for Erectile Dysfunction. 90 day supply Dx code :250.60 60 tablet 6 ??? citalopram (CELEXA) 20 mg tablet Take 40 mg by mouth daily. Social history: History Social History ??? Marital Status: Spouse Name: N/A Number of Children: N/A ??? 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 Smoking status: Never Smoker ??? Smokeless tobacco: Never Used ??? Alcohol Use: No Comment: history of abuse, stopped 1996 ??? Drug Use: No ??? Sexual Activity: Yes Comment: deferred Other Topics Concern ??? Exercise: Patient Reported Yes yard work, push ups situps ??? 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 Lives with Family history: Family History Problem Relation Age of Onset ??? Alcohol Abuse Father ??? Coronary Artery Disease Maternal Grandmother ??? Diabetes Maternal Grandmother ??? Heart Disease Maternal Grandmother ??? High Blood Pressure Mother ??? High Blood Pressure Brother ??? Stroke Maternal Grandfather ROS: +/- as per HPI and PMH, otherwise negative for 12 systems reviewed. Physical Exam: Temp: -- Heart Rate: [92] Resp: -- BP: (130)/(89) SpO2: [100 %] No intake or output data in the 24 hours ending 08/30/15 1420 Physical Exam: General: sitting in chair in NAD, pleasant with appropriate mentation HEENT: PERRL, anicteric sclerae CVS: RRR nl s1/s2 no murmur appreciated Pulm: excellent effort and unlabored on room air, CTAB no wheezes or rhonchi Abd: soft and diffusely nontender except at the epigastrium where a fascial edge and small hernia sac are faintly palpable, moderately tender without rigidity or guarding, and partially reducible; bowel sounds active throughout; pancreas graft palpable and nontender in RLQ with well healed incision noerythema Skin/Ext: mucus membranes dry, extremities warm and well perfused with brisk cap refill, peripheral pulses palpable x4 Neuro: no gross focal or global deficits Labs: Last 3 wbc, hgb, hct plt Recent Labs 08/30/15 1142 08/22/15 0942 03/07/15 0832 WBC 9.9 5.2 7.4 HGB 15.2 12.2* 13.3* HCT 44.5 36.1* 39.0* PLATELET 255 232 250 Last 3 Lytes Recent Labs 08/30/15 1142 08/22/15 0942 03/07/15 0832 NA 136 137 130* K 5.5* 4.3 4.7 CL 98 100 92* CO2 21* 26 27 BUN 17 14 12 CREATININE 1.35 1.07 1.07 Last 3 LFTs Recent Labs 08/30/15 1142 08/22/15 0942 03/07/15 0832 AST Not Perf 24 22 ALT 27 23 21 ALKPHOS 123* 105 124* BILITOT 2.1* 0.9 1.0 BILIDIR 0.3 0.2 0.2 ASSESSMENT & PLAN: Richard Hsu is a 49 y.o. male with DM1 s/p DDRT 07/2013, now with 1 weekof acute on chronic abdominal pain, 24hr of vomiting and diarrhea, and dehydration. Mr. Hsu's picture is suggestive of partial SBO from an epigastric hernia; the presence of the hernia is not overly impressive on exam and by his report has reduced in the last 24hr with improvementin his symptoms. There is no indication for urgent surgical workup. His primary concern is dehydration after poor PO intake this week; will admit for IVF resuscitation and, given he is tolerating a regular diet without obstipation, will continue to feed. Given the presence of diarrhea and his immunosuppression will also work up with stool C diff, ova & parasites and norovirus. Continue remainder of home Rx regimen. NEURO: Tylenol prn, celexa, trazodone qhs CV: lisinopril, ASA PULM: no issues GI: Regular diet, protonix, PO Zofran prn /FEK: s/p 2L IVB; MIVF NS @ 100cc/hr ID: WBC 9.9, afebrile; will w/u diarrhea with C diff/O&P/Norovirus HEME: ASA 83 ENDO: functioning pancreas graft, will follow qd glucose on BMP and daily amylase/lipase; synthroid IMMUNO: Cellcept 500mg BID, Prograf 2mg BID PROPHYLAXIS: SCDs, Protonix, Valtrex DISPO: Floor status, Full Code Plan discussed with Dr. Keller. NANDO RODRIGUEZ MD documented in this encounter Miscellaneous Notes Plan of Care - Rhonda Almanza RN - 08/31/2015 3:26 PM EST Problem: General Plan of Care Goal: Plan of Care Review Outcome: Ongoing (Interventions Implemented as Appropriate) 08/31/15 1522 Coping/Psychosocial Response Interventions Plan of Care Reviewed with patient;spouse Plan of Care Review Plan of Care Outcome Status ongoing (interventions implemented as appropriate) Progress improving OUTCOME EVALUATION NOTE: OUTCOME SUMMARY: Brant did good today. He is eager to get home and hopeful he will tomorrow. He had some bloating afterlunch which is not unusual for him at times. Hid diarrhea has slowed and he feels well. PLAN MOVING FORWARD: Await lab results on stool samples, monitor I/O, promote independence INDIVIDUALIZED FALL PREVENTION: Assistance: independent Supervision: Stand by Surveillance: avila Lynch, hourly rounds. CPG OUTCOME EVALUATION: Plan of Care - Yomaira Arzate RN - 08/31/2015 4:33 AM EST Problem: General Plan of Care Goal: Plan of Care Review Outcome: Ongoing (Interventions Implemented as Appropriate) 08/31/15 0430 Coping/Psychosocial Response Interventions Plan of Care Reviewed with patient;spouse Plan of Care Review Plan of Care Outcome Status ongoing (interventions implemented as appropriate) Progress improving OUTCOME EVALUATION NOTE: OUTCOME SUMMARY: Mr. Hsu had a good shift. He continues to report increased frequency and urgency of bowel movements. Increased PO fluid intake. Denies nausea. Heating pad applied for comfort. Will continue to monitor. PLAN MOVING FORWARD: Awaiting results of lab tests INDIVIDUALIZED FALL PREVENTION: Assistance: Independent Supervision: Independent Surveillance: Kimo, purposeful rounding, call holder in reach CPG OUTCOME EVALUATION: Goal: Individualization and Mutuality Outcome: Ongoing (Interventions Implemented as Appropriate) 08/30/151999 Mutuality/Individual Preferences What anxieties, fears or concerns do you have about your health or care? none What questions do you have about your health or care? when will my stomach feel normal What information would help us give you more personalized care? None Goal: Fall Prevention-Safe Patient Handling Outcome: Ongoing (Interventions Implemented as Appropriate) 08/30/152005 Gupta Fall Risk History of Falling 0 Secondary Diagnosis 15 Ambulatory Aids 0 Intravenous Therapy/Heparin/Saline Lock 20 Gait/Transferring 0 Mental Status 0 Score 35 OTHER Gupta Fall Risk High (>24 hours) Safety Interventions Safety Precautions/Fall Reduction environmental modification;fall reduction program maintained;family at bedside;lighting adjusted for task/safety;nonskid shoes/slippers when out of bed;room near unit station;supervised activity Musculoskeletal Interventions Activity/Level of Assistance up in room;ambulated;independently Positioning independent Goal: Infection Control Outcome: Ongoing (Interventions Implemented as Appropriate) 08/30/152005 Coping/Psychosocial Response Interventions Counseling emotional support provided;reassurance provided;understanding of situation facilitated;verbalization of feelings encouraged Safety Interventions Isolation Precautions contact precautions maintained Infection Prevention rest/sleep promoted;promote handwashing;nutrition promoted;hydration promoted;bronchial hygiene promoted;environmental surveillance Goal: Discharge Needs Assessment Outcome: Ongoing (Interventions Implemented as Appropriate) 08/30/15199908/31/15 0430 Discharge Needs Assessment Concerns to be Addressed -- no discharge needs identified Readmission Within the Last 30 Days -- no previous admission in last 30 days Equipment Needed After Discharge -- none Current Health Anticipated Changes Related to Illness -- none Self-Care Equipment Currently Used at Home -- none Living Environment Transportation Available car;family or friend will provide -- Problem: Diarrhea (Adult, Obstetrics) Goal: Identify Signs and Symptoms and Related Risk Factors Signs and symptoms and related risk factors are identified upon initiation of Human Response Clinical Practice Guideline (CPG) Outcome: Ongoing (Interventions Implemented as Appropriate) 08/31/15 0430 Diarrhea Personal Related Risk Factors (Diarrhea) stress, anxiety Physiological Related Risk Factors (Diarrhea) immune deficiency Signs and Symptoms (Diarrhea) abdominal pain/cramps;decreased appetite;increased stool frequency, amount, and fluidity;loose, watery stool;urgency Goal: Improved/Reduce Symptoms Patient will demonstrate the desired outcomes. Outcome: Ongoing (Interventions Implemented as Appropriate) documented in this encounter Plan of Treatment Not on filedocumented as of this encounter Procedures Procedure Name Priority Date/Time Associated Comments Diagnosis LIPASE Routine 09/01/2015 5:21 Results for this AM EST procedure are i n the results section. AMYLASE Routine 09/01/2015 5:21 Results for this AM EST procedure are i n the results section. BASIC METABOLIC PANEL Routine 09/01/2015 5:21 Res ults for this (NON-FASTING) AM EST procedure are in the results section. HEMOGRAM Routine 08/31/2015 6:42 Results for this AM EST procedure are i n the results section. DIFFERENTIAL, AUTOMATED Routine 08/31/2015 6:42 R esults for this AM EST procedure are i n the results section. CBC (WITH DIFF) Routine 08/31/2015 6:42 AM EST LIPASE Routine 08/31/2015 6:42 Results for this AM EST procedure are i n the results section. AMYLASE Routine 08/31/2015 6:42 Results for this AM EST procedure are i n the results section. BASIC METABOLIC PANEL Routine 08/31/2015 6:42 Res ults for this (NON-FASTING) AM EST procedure are in the results section. CRYPTOSPORIDIUM OOCYST Routine 08/30/2015 7:22 Re sults for this ANTIGEN ([facility]/CGP/APD) PM EST proce dure are in the results section. GIARDIA ANTIGEN Routine 08/30/2015 7:22 Results f or this ([facility]/CGP/APD/[facility]) PM EST procedure are in the results section. FULL OVA AND PARASITES Routine 08/30/2015 6:55 Re sults for this EXAM PM EST procedure are i n the results section. NOROVIRUS ANTIGEN Routine 08/30/2015 4:07 Results for this (LEB/CGP) PM EST procedure are i n the results section. C. DIFFICILE SCREEN Routine 08/30/2015 4:06 Resul ts for this PM EST procedure are i n the results section. documented in this encounter Results (ABNORMAL) Basic Metabolic Panel (non-fasting) (09/01/2015 5:21 AM EST) athologist Signature Glucose Lvl 106 65 - 199 CERNER mg/dL MILLENNIUM Comment: Diabetes: >=200 mg/dL plus symp toms BUN 11 10 - 20 mg/dL CERNER MILLENNIU M Creatinine 1.01 0.80 - 1.50 mg/dL CERNER MILL ENNIUM Comment: Please note that the pediatric reference intervals supplied above were not validated at [facility]. Results from pediatri c patients should be interpreted in conjunction to the patient's age, height and muscle mass. Sodium 133 (L) 135 - 145 mmol/L CERNER LALA NIUM Potassium 4.7 3.5 - 5.0 mmol/L CERNER LALA NIUM Comment: Please note: ??Patients with WBC >100,00 0 may have falsely elevated Potassium levels. ??For accurate Potassium quantif ication in these patients send serum separator tube (gold top) for subsequent determinations. ??Contact the Clinical Chemistry Laboratory if there are any qu estions. Chloride 95 (L) 98 - 107 mmol/L CERNER MILLENN IUM CO2 25 22 - 31 mmol/L CERNER MILLENNI UM Anion Gap 13 5 - 15 mmol/L CERNER MILLENNIU M Calcium 8.8 8.5 - 10.5 mg/dL CERNER LALA NIUM Estimated GFR >60 >=60 CERNER MILLENNIU M [...] the following links into your internet browser. [email or web address] [email or web address] Specimen Anatomical Collection Method Collection Time Receive d Time (Source) Location / / Volume Laterality Blood specimen 09/01/2015 5:21 AM 016 5:29 (specimen) EST AM EST Resulting Agency Comment Spec In Lab Iraj Keller MD CHEMISTRY ORDERABLES Performing Organization Address City/[facility]/ZIP Code Phon e Number [address] CERNER MILLENNIUM Lipase (09/01/2015 5:21 AM EST) P athologist Signature Lipase 19 0 - 60 CERNER unit/L MILLENNIUM Specimen Anatomical Collection Method Collection Time Receive d Time (Source) Location / / Volume Laterality Blood specimen 09/01/2015 5:21 AM 016 5:29 (specimen) EST AM EST Resulting Agency Comment Spec In Lab Iraj Keller MD CHEMISTRY ORDERABLES Performing Organization Address City/[facility] Phon e Number [address] CERNER MILLENNIUM Amylase (09/01/2015 5:21 AM EST) athologist Signature Amylase 48 28 - 100 CERNER unit/L MILLENNIUM Specimen Anatomical Collection Method Collection Time Receive d Time (Source) Location / / Volume Laterality Blood specimen 09/01/2015 5:21 AM 016 5:29 (specimen) EST AM EST Resulting Agency Comment Spec In Lab Iraj Keller MD CHEMISTRY ORDERABLES Performing Organization Address City/[facility] Phon e Number [address] CERNER MILLENNIUM Differential, Automated (08/31/2015 6:42 AM EST) athologist Signature Neutrophils % 60.9 % CERNER MILLENNIUM Neutr Abs (ANC) 3.81 1.50 - CERNER 6.30 MILLENNIUM x10(3)/mcL Lymphocytes % 27.8 % CERNER MILLENNIUM Lymphocytes Abs 1.7 1.0 - 3.6 CERNER x10(3)/mcL MILLENNIUM Monocytes % 9.6 % CERNER MILLENNIUM Monocyte Abs 0.6 0.2 - 1.0 CERNER x10(3)/mcL MILLENNIUM Eosinophils % 1.0 % CERNER MILLENNIUM Eosinophils Abs 0.1 0.0 - 0.5 CERNER x10(3)/mcL MILLENNIUM Basophils % 0.5 % CERNER MILLENNIUM Basophils Abs 0.0 0.0 - 0.2 CERNER x10(3)/mcL MILLENNIUM Immature Gran % 0.20 % CERNER MILLENNIUM Comment: Immature granulocytes(IG's)percentage an d absolute count will include metamyelocytes, myelocytes, and promyelo cytes. Blood smears from CBCs yielding IG's will be scanned manually for concor dance. If this scan disagrees with the automated IG or if promyelocytes are not ed, a manual differential will be performed. Kym Gran Abs 0.01 0.00 - 0.05 x10(3)/mcL CER NER MILLENNIUM Specimen Anatomical Collection Method Collection Time Receive d Time (Source) Location / / Volume Laterality Blood specimen 08/31/2015 6:42 AM 016 6:49 (specimen) EST AM EST Resulting Agency Comment Spec In Lab Iraj Keller MD HEMATOLOGY ORDERABLES Performing Organization Address City/State/[place] [address] CERNER MILLENNIUM (ABNORMAL) Hemogram (08/31/2015 6:42 AM EST) P athologist Signature WBC 6.2 4.0 - 10.0 CERNER x10(3)/mcL MILLENNIUM RBC 4.34 (L) 4.63 - CERNER 6.08 MILLENNIUM x10(6)/mcL Hemoglobin 12.7 (L) 13.7 - CERNER 17.5 gm/dL MILLENNIUM Hematocrit 36.4 (L) 40.0 - CERNER 51.0 % MILLENNIUM MCV 83.9 79.0 - CERNER 92.0 fL MILLENNIUM MCH 29.3 25.6 - CERNER 32.2 pg MILLENNIUM MCHC 34.9 32.0 - CERNER 36.5 gm/dL MILLENNIUM Platelets 196 145 - 370 CERNER x10(3)/mcL MILLENNIUM RDWSD 39.1 35.0 - CERNER 46.0 fL MILLENNIUM RDWCV 13.0 10.9 - CERNER 14.4 % MILLENNIUM MPV 10.3 9.0 - 12.0 CERNER fL MILLENNIUM Specimen Anatomical Collection Method Collection Time Receive d Time (Source) Location / / Volume Laterality Blood specimen 08/31/2015 6:42 AM 016 6:49 (specimen) EST AM EST Resulting Agency Comment Spec In Lab Iraj Keller MD HEMATOLOGY ORDERABLES Performing Organization Address City/State/[place] [address] CERNER MILLENNIUM (ABNORMAL) Basic Metabolic Panel (non-fasting) (08/31/2015 6:42 AM EST) athologist Signature Glucose Lvl 117 65 - 199 CERNER mg/dL MILLENNIUM Comment: Diabetes: >=200 mg/dL plus symp toms BUN 12 10 - 20 mg/dL CERNER MILLENNIU M Creatinine 0.99 0.80 - 1.50 mg/dL CERNER MILL ENNIUM Comment: Please note that the pediatric reference intervals supplied above were not validated at [facility]. Results from pediatri c patients should be interpreted in conjunction to the patient's age, height and muscle mass. Sodium 134 (L) 135 - 145 mmol/L CERNER LALA NIUM Potassium 4.5 3.5 - 5.0 mmol/L CERNER LALA NIUM Comment: Please note: ??Patients with WBC >100,00 0 may have falsely elevated Potassium levels. ??For accurate Potassium quantif ication in these patients send serum separator tube (gold top) for subsequent determinations. ??Contact the Clinical Chemistry Laboratory if there are any qu estions. Chloride 99 98 - 107 mmol/L CERNER MILLENN IUM CO2 21 (L) 22 - 31 mmol/L CERNER MILLENNI UM Anion Gap 14 5 - 15 mmol/L CERNER MILLENNIU M Calcium 8.9 8.5 - 10.5 mg/dL CERNER LALA NIUM Estimated GFR >60 >=60 CERNER MILLENNIU M [...] the following links into your internet browser. [email or web address] [email or web address] Specimen Anatomical Collection Method Collection Time Receive d Time (Source) Location / / Volume Laterality Blood specimen 08/31/2015 6:42 AM 016 6:49 (specimen) EST AM EST Resulting Agency Comment Spec In Lab Iraj Keller MD CHEMISTRY ORDERABLES Performing Organization Address City/[facility]/ZIP Code Phon e Number [address] CERNER MILLENNIUM Lipase (08/31/2015 6:42 AM EST) P athologist Signature Lipase 20 0 - 60 CERNER unit/L MILLENNIUM Specimen Anatomical Collection Method Collection Time Receive d Time (Source) Location / / Volume Laterality Blood specimen 08/31/2015 6:42 AM 016 6:49 (specimen) EST AM EST Resulting Agency Comment Spec In Lab Iraj Keller MD CHEMISTRY ORDERABLES Performing Organization Address City/[facility]/ZIP Code Phon e Number [address] CERNER MILLENNIUM Amylase (08/31/2015 6:42 AM EST) P athologist Signature Amylase 47 28 - 100 CERNER unit/L MILLENNIUM Specimen Anatomical Collection Method Collection Time Receive d Time (Source) Location / / Volume Laterality Blood specimen 08/31/2015 6:42 AM 016 6:49 (specimen) EST AM EST Resulting Agency Comment Spec In Lab Iraj Keller MD CHEMISTRY ORDERABLES Performing Organization Address City/[facility]/ZIP Code Phon e Number [address] CERNER MILLENNIUM Cryptosporidium Oocyst Antigen (08/30/2015 7:22 PM EST) [facility] gist Method Time Signature Cryptosporidium Negative Negative CERNER Screen MILLENNIUM Specimen Anatomical Collection Method Collection Time Receive d Time (Source) Location / / Volume Laterality Stool specimen Stool / Unknown 08/30/2015 7:22 PM 08/02 7:22 (specimen) EST PM EST Resulting Agency Comment Spec In Lab Iraj Keller MD MICROBIOLOGY - GENERAL ORDER ERICA Performing Organization Address City/[facility]/ZIP Code Phon e Number [address] CERNER MILLENNIUM Giardia antigen (08/30/2015 7:22 PM EST) [facility] Time Signature Giardia Screen Negative Negative CERNER MILLENNIUM Comment: Examination for other intestina l parasites requires foreign travel history. Specimen Anatomical Collection Method Collection Time Receive d Time (Source) Location / / Volume Laterality Stool specimen Stool / Unknown 08/30/2015 7:22 PM 08/02 7:22 (specimen) EST PM EST Resulting Agency Comment Spec In Lab Iraj Keller MD MICROBIOLOGY - GENERAL ORDER ERICA Performing Organization Address City/[facility]/ZIP Code Phon e Number [address] CERNER MILLENNIUM Full Ova and Parasites Exam (08/30/2015 6:55 PM EST) [facility] [employer] Method Time Signature Ova & No ova or CERNER Parasite parasites MILLENNIUM Stool seen. Specimen Anatomical Collection Method Collection Time Receive d Time (Source) Location / / Volume Laterality Stool specimen 08/30/2015 6:55 PM 015 7:21 (specimen) EST PM EST Comment: SPECIFY TRAVEL HISTORY (WHERE) OR IF PATIENT IS IN AN IMMUNOSUPPRESSED STATE?->IMMUNOSUPRESSION S/P PANCREAS TR ANSPLANT Resulting Agency Comment Spec In Lab Iraj Keller MD MICROBIOLOGY - GENERAL ORDER ERICA Performing Organization Address City/[facility]/ZIP Code Phon e Number [address] CERNER MILLENNIUM Norovirus Antigen (08/30/2015 4:07 PM EST) [facility] Method Time Signature Norovirus EIA NOT DETECTED CERNER MILLENNIUM Comment: A negative result does not exclude norov irus infection. Test Performed by: [employer] [id number] [place] [id number] Specimen Anatomical Collection Method Collection Time Receive d Time (Source) Location / / Volume Laterality Stool specimen 08/30/2015 4:07 PM 016 9:54 (specimen) EST AM EST Resulting Agency Comment Spec In Lab Iraj Keller MD BODY FLUIDS AND STOOLS ORDER ERICA Performing Organization Address City/[facility]/ZIP Code Phon e Number [address] [facility] [employer] [facility] C. Difficile Screen (08/30/2015 4:06 PM EST) Analysis Performed At [facility] Time Signature C Diff Screen Negative Negative [facility] Specimen Anatomical Collection Method Collection Time Receive d Time (Source) Location / / Volume Laterality Stool specimen 08/30/2015 4:06 PM 015 4:27 (specimen) EST PM EST Resulting Agency Comment Spec In Lab Iraj Keller MD MICROBIOLOGY - GENERAL ORDER ERICA Performing Organization Address City/[facility] Phon e Number [address] [facility] [employer] [facility] documented in this encounter Visit Diagnoses Diagnosis Dehydration documented in this encounter Admitting Diagnoses Diagnosis Dehydration documented in this encounter Administered Medications Inactive Administered Medications - up to 3 most recent administrations Medication Order MAR Action Action Date Dose Rate Site acetaminophen (TYLENOL) tablet 650 Given 08/31/2015 5:03 PM EST 650 mg mg 650 mg, Oral, EVERY 4 HOURS PRN, Starting on Vanessa 08/30/15 at 1555, Until 09/01/15 at 1312, Pain, Fever. if oral temperature greater than 38.5 Centigrade, Maximum dose of acetaminophen is 4000 mg from all sources in 24 hours., Routine aspirin chewable tablet 81 mg Given 09/01/2015 8:47 AM EST 81 mg 81 mg, Oral, DAILY, First dose on Vanessa 08/30/15 at 1730, Until Discontinued, Routine Given 08/31/2015 8:34 AM EST 81 mg citalopram (CeleXA) tablet 40 mg Given 09/01/2015 8:47 AM EST 40 mg 40 mg, Oral, DAILY, First dose on Vanessa 08/30/15 at 1800, Until Discontinued, Routine Given 08/31/2015 8:35 AM EST 40 mg Given 08/30/2015 5:25 PM EST 40 mg HYDROmorphone (DILAUDID) tablet 2 mg Given 09/01/2015 4:48 AM EST 2 mg 2 mg, Oral, EVERY 4 HOURS PRN, Starting on Thu08/31/15 at 1643, Until 09/01/15 at 1312, Pain, Routine Given 08/31/2015 10:57 PM EST 2 mg Given 08/31/2015 5:03 PM EST 2 mg levothyroxine (SYNTHROID) tablet 175 mcg Given 09/01/2015 5:38 AM EST 175 mcg 175 mcg, Oral, EVERY MORNING, First dose on Thu08/31/15 at 0600, Until Discontinued, Routine Given 08/31/2015 7:26 AM EST 175 mcg lisinopril (PRINIVIL;ZESTRIL) tablet 20 mg Given 09/01/2015 8:47 AM EST 20 mg 20 mg, Oral, DAILY, First dose on Thu08/30/15 at 1800, Until Discontinued, Routine Given 08/31/2015 8:34 AM EST 20 mg mycophenolate (CELLCEPT) capsule 500 mg Given 09/01/2015 5:38 AM EST 500 mg 500 mg, Oral, 2 TIMES DAILY, First dose on Thu08/30/15 at 1830, Until Discontinued, DO NOT CRUSH OR OPEN, Routine Given 08/31/2015 6:02 PM EST 500 mg Given 08/31/2015 7:26 AM EST 500 mg ondansetron (ZOFRAN) tablet 8 mg Given 08/31/2015 3:48 PM EST 8 mg 8 mg, Oral, EVERY 8 HOURS PRN, Starting on Thu08/30/15 at 1555, Until 09/01/15 at 1312, Nausea, Routine pantoprazole (PROTONIX) tablet 40 mg Given 09/01/2015 8:47 AM EST 40 mg 40 mg, Oral, DAILY, First dose on Thu08/30/15 at 1800, Until Discontinued, DO NOT CRUSH OR OPEN, Routine Given 08/31/2015 8:35 AM EST 40 mg Given 08/30/2015 5:38 PM EST 40 mg simethicone (MYLICON) chewable tablet 40 mg Given 08/31/2015 9:55 PM EST 40 mg 40 mg, Oral, EVERY 6 HOURS PRN, Starting on Thu08/31/15 at 1454, Until Thu09/01/15 at 1312, Cramping, Routine Given 08/31/2015 3:48 PM EST 40 mg sodium chloride 0.9 % flush 5 mL Given 09/01/2015 8:49 AM EST 5 mLs 5 mL, Intravenous, 2 TIMES DAILY, First dose on Vanessa 08/30/15 at 2100, Until Discontinued, Routine Given 08/31/2015 8:34 PM EST 5 mLs Given 08/31/2015 8:35 AM EST 5 mLs sodium chloride 0.9% infusion New Bag 08/31/2015 3:00 AM EST 100 mL/hr 100 mL/hr 100 mL/hr, Intravenous, CONTINUOUS, Starting on Vanessa 08/30/15 at 1615, Until Thu08/31/15 at 1016 New Bag 08/30/2015 5:24 PM EST 100 mL/hr 100 mL/hr tacrolimus (PROGRAF) capsule 2 mg Given 09/01/2015 5:38 AM EST 2 mg 2 mg, Oral, 2 TIMES DAILY, First dose on Vanessa 08/30/15 at 1830, Until Discontinued, Routine Given 08/31/2015 6:02 PM EST 2 mg Given 08/31/2015 7:25 AM EST 2 mg traZODone (DESYREL) tablet 50 mg Given 08/31/2015 8:32 PM EST 50 mg 50 mg, Oral, NIGHTLY, First dose on Vanessa 08/30/15 at 2100, Until Discontinued, Routine Given 08/31/2015 12:17 AM EST 50 mg documented in this encounter Active and Recently Administered Medications Times are shown in EST. Scheduled Medication Order 08/30/2015 08/31/2015 09/01/2015 aspirin chewable tablet 81 mg (CANCELED) 1730 (Not Giv en - Provider: Rhonda Almanza, MIGUELITO - Reason: Patient/family refused) 0834 (Given - Provider: Rhonda Almanza, MIGUELITO) 0847 (Given - Provider: Katiana navarro RN) 81 mg, Oral, DAILY, First dose on Vanessa at 1730, Until Discontinued, Routine citalopram (CeleXA) tablet 40 mg (CANCELED) 1725 (Give n - Provider: Rhonda Almanza, MIUGELITO) 0835 (Given - Provider: Rhonda Almanza RN) 0847 (Giv en - Provider: Katiana Lion, MIGUELITO) 40 mg, Oral, DAILY, First dose on Vanessa at 1800, Until Discontinued, Routine levothyroxine (SYNTHROID) tablet 175 mcg (CANCELED) 0726 (Given - Provider: Rhonda Almanza RN) 0538 (Given - Provider: Yomaira titus RN) 175 mcg, Oral, EVERY MORNING, First dose on Thu08/31/15 at 0600, Until Discontinued, Routine lisinopril (PRINIVIL;ZESTRIL) tablet 20 mg (CANCELED) 1800 (Not Given - Provider: Rhonda lAmanza RN - Reason: Patient/family refused) 0834 (Given - Provider: Rhonda Almanza RN) 0847 (Given - Provider: Katiana navarro RN) 20 mg, Oral, DAILY, First dose on Vanessa at 1800, Until Discontinued, Routine mycophenolate (CELLCEPT) capsule 500 mg (CANCELED) 190 2 (Given - Provider: Rhonda Almanza RN) 0726 (Given - Provider: Rhonda Almanza RN)1802 (Given - Provider: Rhonda Almanza RN) 0538 (Given - Provider: Yomaira Meehan RN) 500 mg, Oral, 2 TIMES DAILY, First dose on Vanessa 08/30/15 at 1830, Until Discontinued, DO NOT CRUSH OR OPEN, Routine pantoprazole (PROTONIX) tablet 40 mg (CANCELED) 1738 ( Given - Provider: Rhonda Almanza RN) 0835 (Given - Provider: Rhonda Almanza RN) 0847 (Giv en - Provider: Katiana Lion RN) 40 mg, Oral, DAILY, First dose on Vanessa at 1800, Until Discontinued, DO NOT CRUSH OR OPEN, Routine sodium chloride 0.9 % flush 5 mL (CANCELED) 2100 (Not Given - Provider: Yomaira Meehan RN - Reason: See comment - Comment: IV infusing) 0835 (Given - Provider: Rhonda Almanza, MIGUELITO)2033 (Given - Provider: Dimple Anderson, MIGUELITO) 0849 (Given - Provider: Katiana Lion RN) 5 mL, Intravenous, 2 TIMES DAILY, First dose on Vanessa 08/30/15 at 2100, Until Discontinued, Routine tacrolimus (PROGRAF) capsule 2 mg (CANCELED) 190 (Giv en - Provider: Rhonda Almanza RN) 0725 (Given - Provider: Rhonda Almanza RN)180 (Given - Provider: Rhonda Almanza, MIGUELITO) 0538 (Given - Provider: Yomaira titus RN) 2 mg, Oral, 2 TIMES DAILY, First dose on Vanessa 08/30/15 at 1830, Until Discontinued, Routine traZODone (DESYREL) tablet 50 mg (CANCELED) 0017 (Given - Provider: Yomaira Meehan, MIGUELITO)2031 (Given - Provider: Dimple Anderson RN) 50 mg, Oral, NIGHTLY, First dose on Vanessa 08/30/15 at 2100, Until Discontinued, Routine Continuous Medication Order 08/30/2015 08/31/2015 09/01/2015 sodium chloride 0.9% infusion (CANCELED) 1724 (New Bag - Provider: Rhonda Almanza RN) 0300 (New Bag - Provider: Yomaira Meehan, MIGUELITO)1048 (Stopped - Provider: Rhonda Almanza RN) 100 mL/hr, at 100 mL/hr, Intravenous, CO NTINUOUS, Starting Vanessa 08/30/15 at 1615, Until Thu08/31/15 at 1016 PRN Medication Order 08/30/2015 08/31/2015 09/01/2015 acetaminophen (TYLENOL) tablet 650 mg (CANCELED) 1703 (Given - Provider: Rhonda Almanza RN) 650 mg, Oral, EVERY 4 HOURS PRN, Startin g Vanessa 08/30/15 at 1555, Until 09/01/15 at 1312, Pain, Fever. if oral temperature greater than 38.5 Centigrade, Maximum dose of acetaminophen is 4000 mg from all sources in 24 hours., Routine HYDROmorphone (DILAUDID) tablet 2 mg (CANCELED) 170 (Given - Provider: Rhonda Almanza, MIGUELITO)2257 (Given - Provider: Yomaira Meehan, MIGUELITO) 0448 (Given - Provider: Yomaira Meehan, MIGUELITO) 2 mg, Oral, EVERY 4 HOURS PRN, Starting 08/31/15 at 1643, Until 09/01/15 at 1312, Pain, Routine ondansetron (ZOFRAN) tablet 8 mg (CANCELED) 1548 (Given - Provider: Rhonda Almanza RN) 8 mg, Oral, EVERY 8 HOURS PRN, Starting Vanessa 08/30/15 at 1555, Until 09/01/15 at 1312, Nausea, Routine simethicone (MYLICON) chewable tablet 40 mg (CANCELED) 1548 (Given - Provider: Rhonda Almanza RN)2155 (Given - Provider: Yomaira Meehan, MIGUELITO) 40 mg, Oral, EVERY 6 HOURS PRN, Starting 08/31/15 at 1454, Until 09/01/15 at 1312, Cramping, Routine documented in this encounter Care Teams Application Services Manager Relationship Specialty Start Date End Date Meaghan Mullen MD PCP - General 12/03/10 [address] [place] [address] documented as of this encounter
--- OUTSIDE RECORDS SUMMARY | 2022-03-13 18:29 | XMS_ITS | Encounter Summary ---
:1965 Author Organization [facility] [place] [address] Care Team Providers Name Role Phone Anna Mullen MD Primary Care Provider Encounter Details Date Type Department Care Team Description 08/21/2015 Hospital Encounter Laboratory Pancreas replaced by transpl ant; [facility] [place] [address] Social History Tobacco Use Types [...] 6 09/14/2012 mg tablet Dx code :250.60 PROGRAF 1 mg Capsule TAKE 2 CAPSULES BY 120 capsule 9 201402/29/2016 MOUTH TWO TIMES A DAY traZODone (DESYREL) 50 TAKE ONE TABLET BY 90 tablet 3 05/1605/21/2016 mg Tablet MOUTH EVERY EVENING CELLCEPT 250 mg Capsule TAKE TWO CAPSULES BY 360 capsule 2 0 05/09/2015 03/12/2016 MOUTH TWICE A DAY gabapentin (NEURONTIN) Take 100 mg by mouth [...] 2016 (SYNTHROID) 175 mcg mouth daily. tablet Magnesium Gluconate 27 Take 1 tablet by [...] Name Priority Date/Time Associated Diagnosis Comme nts U24 HRS AND VOLUME Routine 08/22/2015 5:00 AM Res ults for this EST procedure are i n the results section. URIC ACID, URINE, Routine 08/22/2015 5:00 AM Pancreas replaced by Results for this 24 HOUR EST transplant procedure are in Need for prophylactic the re sults immunotherapy section. CALCIUM, URINE, 24 Routine 08/22/2015 5:00 AM Pancreas replace d by Results for this HOUR EST transplant procedure are in Need for prophylactic the re sults immunotherapy section. CREATININE, URINE, Routine 08/22/2015 5:00 AM Pancreas replace d by Results for this 24 HOUR EST transplant procedure are in Need for prophylactic the re sults immunotherapy section. PROTEIN, URINE, 24 Routine 08/22/2015 5:00 AM Pancreas replace d by Results for this HOUR EST transplant procedure are in Need for prophylactic the re sults immunotherapy section. PHOSPHORUS, URINE, Routine 08/22/2015 5:00 AM Pancreas replace d by Results for this 24 HOUR EST transplant procedure are in Need for prophylactic the re sults immunotherapy section. CREATININE Routine 08/22/2015 5:00 AM Pancreas replaced by R esults for this CLEARANCE, URINE, EST transplant procedure are in 24 HOUR Need for prophylactic the re sults immunotherapy section. documented in this encounter Results U24 Hrs and Volume (08/22/2015 5:00 AM EST) athologist Signature Hours 24 hour(s) CERNER Collected MILLENNIUM Urine TV (ml) 3,600 mL CERNER MILLENNIUM Specimen Anatomical Collection Method Collection Time Receive d Time (Source) Location / / Volume Laterality Urine specimen 08/22/2015 5:00 AM 015 (specimen) EST 10:30 AM EST Resulting Agency Comment Spec In Lab Eriberto Melgar MD CHEMISTRY ORDERABLES Performing Organization Address City/State/[place] [address] CERNER MILLENNIUM Uric acid, urine, [...] Organization Address City/State/[place] [address] CERNER MILLENNIUM Phosphorus, urine, 24 hour (08/22/2015 5:00 AM EST) athologist Signature U24 Phos Conc 17.1 mg/dL CERNER MILLENNIUM U24 Phos Calc 0.6 0.4 - 1.3 CERNER gm/24hr MILLENNIUM Specimen Anatomical Collection Method Collection Time Receive d Time (Source) Location / / Volume Laterality Urine specimen 08/22/2015 5:00 AM 015 (specimen) EST 10:30 AM EST Resulting Agency Comment Spec In Lab Eriberto Melgar MD URINE ORDERABLES Performing Organization Address City/[facility]/[place] [address] CERNER MILLENNIUM Calcium, urine, 24 [...] Performing Organization Address City/[facility]/[place] [address] CERNER MILLENNIUM (ABNORMAL) Creatinine, urine, 24 hour (08/22/2015 5:00 AM EST) Analysis Performed At Patho logist Time Signature U24 Creat Conc 54 [...] Performing Organization Address City/[facility]/ZIP Code Phon e Number [address] CERNER MILLENNIUM (ABNORMAL) Creatinine Clearance, [...] Organization Address City/State/[place] [address] CERNER MILLENNIUM (ABNORMAL) Protein, urine, [...] Resulting Agency Comment Spec In Lab Eriberto Meglar MD URINE ORDERABLES Performing Organization Address City/State/[place] [address] CERNER MILLENNIUM documented in this encounter Visit Diagnoses Diagnosis 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 Need for prophylactic immunotherapy documented in this encounter Care Teams Platen Press Operator Relationship Specialty Start Date End Date Anna Mullen MD PCP - General 12/03/10 [address] [place] [address] documented as of this encounter
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
--- OUTSIDE RECORDS SUMMARY | 2022-03-13 18:29 | XMS_ITS | Encounter Summary ---
:1965 Author Organization [facility] [place] [address] Care Team Providers Name Role Phone Anna Mullen MD Primary Care Provider Reason for Visit Reason Comments Medication Refill Encounter Details Date Type Department Care Team Description 05/16/2015 Refill Solid Organ Transplant at Eriberto Emer[facility] [place] [address] [place] [address] [phone] (Wo rk) Social History Tobacco Use Types [...] on filedocumented in this encounter Care Teams Child Welfare Specialist Relationship Specialty Start Date End Date Anna Mullen MD PCP - General 12/03/10 [address] [place] [address] documented as of this encounter
--- OUTSIDE RECORDS SUMMARY | 2022-03-13 18:29 | XMS_ITS | Encounter Summary ---
:1965 Author Organization [facility] [place] [address] Care Team Providers Name Role Phone Anna Mullen MD Primary Care Provider Encounter Details Date Type Department Care Team Description 01/30/2015 Hospital Encounter DHART at at Tiffani Melgar, Eriberto Stoddard MD [facility] [place] [address] TRANSPLANT SURGERY [phone] [place], [place] [address] (Wo rk) Social History Tobacco [...] 6 09/14/2012 mg tablet Dx code :250.60 ondansetron (ZOFRAN) 4 TAKE 1 TABLET BY 90 tablet 9 10/10/2 015 08/30/2015 mg Tablet MOUTH EVERY 8 HOURS NEEDED FOR NAUSEA pantoprazole (PROTONIX) TAKE ONE TABLET BY 90 tablet 3 05/201509/09/2015 40 mg Tablet, Delayed MOUTH EVERY DAY Release (E.C.) CELLCEPT 250 mg Capsule Take 2 capsules by 360 capsule 3 08/201305/09/2015 mouth 2 times daily. Diabetic Supplies, Fax form to [facility] 100 each 12 06/26/2014 1 10/14/2014 [employer] for testing supplies 4 times per [...] Associated Diagnosis Comme nts TACROLIMUS LEVEL Routine 01/30/2015 9:45 AM Resul ts for this EDT procedure are i n the results section. documented in this encounter Results Tacrolimus level (01/30/2015 9:45 AM EDT) athologist Signature Tacrolimus Lvl 10.1 ng/mL [facility] Comment: Trough therapeutic: 5-15 ng/mL Specimen Anatomical Collection Method Collection Time Receive d Time (Source) Location / / Volume Laterality Blood specimen Venous Draw / 01/30/2015 9:45 AM 2014 8:33 (specimen) Unknown EDT AM EDT Resulting Agency Comment Spec In Lab Eriberto Melgar MD CHEMISTRY ORDERABLES Performing Organization Address City/State/[place] [address] FARNAZ LARRYADILENE documented in this encounter Visit Diagnoses Not on filedocumented in this encounter Care Teams Aircraft Riveter Relationship Specialty Start Date End Date Anna Mullen MD PCP - General 12/03/10 [address] [place] [address] documented as of this encounter
--- OUTSIDE RECORDS SUMMARY | 2022-03-13 18:29 | XMS_ITS | Encounter Summary ---
:1965 Author Organization [facility] [place] [address] Care Team Providers Name Role Phone Anna Mullen MD Primary Care Provider Encounter Details Date Type Department Care Team Description 09/07/2015 Hospital Encounter MRI at [facility] Mauricio Gonsalez MD [facility] [place] [address] GASTROENTEROLOGY [phone] DEPT. [place], [place] [address] (Wo rk) Social History Tobacco [...] documented as of this encounter Progress Notes Mireille Canales RN - 09/03/2015 11:40 AM EST VIR MRI PRE-SEDATION ASSESSMENT NOTE NAME: Richard Hsu AGE: 49 y.o. : 1965 [address] [facility] [address] Male [phone] (home) [phone] (work) Telephone Information: ANNA MULLEN MD None Allergies Allergen Reactions ??? Nexium [Esomeprazole Magnesium] Diarrhea Any acid reflux medication causes severe diarrhea ??? Prilosec [Omeprazole Magnesium] Diarrhea ??? Reglan [Metoclopramide Hcl] TD ??? Simvastatin Date/Time of call: September 03, 201511:40 AM/ PREVIOUS MRI SCAN? Yes, see below HEIGHT: 6' WEIGHT: 192lbs SCHEDULED SCAN: MRI abdomen/pelvis w/wo (120min, feet first) SUBJECTIVE: I am claustrophobic and have back pain/spasms CAN YOU LAY FLAT? yes DO YOU HAVE ANY PAIN ISSUES? Back pain, would like wedge under knees ASSESSMENT: 4hrs NPO. Pt good candidate for PO sedation. Tried Ativan last and didn't last length ofscan. Will try Valium this time. PLAN: Valium 5-10mg PO, PRN per protocol Guidelines for MRI Pre-Procedures Laboratory Studies: GFR >60 Date of lab draw 09/01/15 1. Creatinine studies (GFR level needed) within 90 days of scan ??? 70 yo or older if they are getting contrast ??? 50 years and older if they are diabetic and getting contrast ( crs ) You must have a hook up driver present when you check in. This patient has been informed that they require a hook up driver to drive them home after this procedure. In the absence of a hook up driver, IR will not be able to sedate for your scan. Pt verbalized understanding of these instructions during the pre-procedure education via phone. Yes Name of hook up driver: Tiffani, Phone number PRIOR SCAN DATE/S SEDATION TYPE SUCCESSFUL 01/02/11 MRI Lumbar spine None Yes 01/13/12 MRI/ MRA None Yes 12/23/12 MRI Lumbar Spine None Yes 01/06/14 MRI Lumbar and Thorasic Ativan 2 mg PO had a hard time last 10 minutes ,Medication wore off. Suggest we try Valium next time as it will last longer. 09/07/15 MRI Abdomen/ Pelvis Valium 5mg po x2 yes PT STATED TO SQL DEVELOPER DBA THAT THE SEDATION WAS EFFECTIVE FOR SCAN: Y N COMMENTS: documented in this encounter Plan of Treatment Not on filedocumented as of this encounter Visit Diagnoses Not on filedocumented in this encounter Administered Medications Inactive Administered Medications - up to 3 most recent administrations Medication Order MAR Action Action Date Dose Rate Site diaZEPam (VALIUM) tablet 5 mg Given 09/07/2015 7:31 AM EST 5 mg 5 mg, Oral, EVERY 30 MIN PRN, 2 doses, Starting on Thu09/07/15 at 0637, Until Thu09/07/15 at 0731, Anxiety, Angio/IR (Day of Procedure), Routine Given 09/07/2015 6:56 AM EST 5 mg documented in this encounter Care Teams Animal Control Officer Relationship Specialty Start Date End Date Anna Mullen MD PCP - General 12/03/10 [address] [place] [address] documented as of this encounter
--- OUTSIDE RECORDS SUMMARY | 2022-03-13 18:29 | XMS_ITS | Encounter Summary ---
:1965 Author Organization [facility] [place] [address] Care Team Providers Name Role Phone Anna Mullen MD Primary Care Provider Encounter Details Date Type Department Care Team Description 06/05/2015 Hospital [place] [address] Social History Tobacco Use Types Packs/Day [...] Tablet, Delayed MOUTH EVERY DAY Release (E.C.) Diabetic Supplies, Fax form to [facility] 100 each 12 06/26/2014 1 10/14/2014 [facility] for testing supplies 4 times per day aspirin 81 mg Tablet, Take 81 mg [...] Associated Diagnosis Comme nts TACROLIMUS LEVEL Routine 06/05/2015 7:20 AM Resul ts for this EDT procedure are i n the results section. documented in this encounter Results Tacrolimus level (06/05/2015 7:20 AM EDT) athologist Signature Tacrolimus Lvl 6.0 ng/mL [facility] Comment: Trough therapeutic: 5-15 ng/mL Specimen Anatomical Collection Method Collection Time Receive d Time (Source) Location / / Volume Laterality Blood specimen Venous Draw / 06/05/2015 7:20 AM 2014 8:04 (specimen) Unknown EDT AM EDT Resulting Agency Comment Spec In Lab Eriberto Melgar MD CHEMISTRY ORDERABLES Performing Organization Address City/State/[place] [address] [facility] documented in this encounter Visit Diagnoses Not on filedocumented in this encounter Care Teams Shoulder Joiner Relationship Specialty Start Date End Date Anna Mullen MD PCP - General 12/03/10 [address] [place] [address] documented as of this encounter
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
--- OUTSIDE RECORDS SUMMARY | 2022-03-13 18:29 | XMS_ITS | Encounter Summary ---
:1965 Author Organization [facility] Address [facility] [place] [address] Care Team Providers Name Role Phone Anna Mullen MD Primary Care Provider Reason for Visit Reason Comments Immunotherapy Pancreas Transplant Follow-up Encounter Details Date Type Department Care Team Description 03/07/2015 Follow-Up Solid Organ Transplant Eriberto Melgar 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; at [facility] [place] Arlyn Need for prophylactic immunotherapy; [facility] ercare [place] [address] TRANSPLANT SURGERY [phone] [place], [place] [address] (Wo rk) Social History Tobacco [...] Sign Reading Time Taken Comments Blood Pressure 144/90 03/07/2015 9:16 AM EDT Pulse 66 03/07/2015 9:16 AM EDT Temperature 36.7 ??C (98 ??F) 03/07/2015 9:16 AM EDT Respiratory Rate 15 03/07/2015 9:16 AM EDT Oxygen Saturation - - Inhaled Oxygen Concentration - - Weight 90.6 kg (199 lb 12.8 oz) 03/07/2015 9:16 AM EDT Height 182.9 cm (6') 03/07/2015 9:16 AM EDT Body Mass Index 27.1 03/07/2015 9:16 AM EDT documented in this encounter Progress Notes Eriberto Melgar MD - 03/07/2015 10:41 AM EDT [place] Transplant Nephrology Follow Up Reese Hsu [id number] Transplant ID: Date: 03/07/2015 Patient: Reese Hsu Transplant Date: 08/28/13 Organ(s) Pancreas Council organ diagnosis: Diabetes Mellitus - Type I (Pancreas) Transplant ID: Mr. Reese Hsu is a White Not nor 49 y.o. male who is Status Post Pancreas transplantation. Mr. Reese Hsu presents to clinic for routine follow-up of care ofhis Pancreas transplantation. His chronic back issues have been addressed both by the Spine Clinic and his Orthopedic surgeon. See HPI Despite his developing a systemic CMV infection the last time I saw him (Jul 2014) and him receiving a CMV donor positive pancreas, he converted to AB+ at month #5 without systemic signs or symptoms. Because he became AB+ we stopped his prophylactic Valcyte. History of Present Illness: 49 y.o. male for routine 6 monthly follow up. He did undergo spine surgery at [facility] few weeks ago which seemed to work initially but unfortunately he got recurrent sciatica. He is taking tramadol and tylenol for his pain. Otherwise takes great care of his pancreas and drinks about 4-5 L/day. 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 Has good energy. Following was addressed with the patient, he is uptodate with his HCM needs. Yearly flu shot- advised Pneumovax Q5 years (Prevnar 23); pneumonia vaccine- 13 once in a lifetime UTD tetanus booster Q10 years Yearly ophthalmology exam- UTD Biannual dental exam -done with prophylactic abx Monthly skin self checks/sunscreen- follows Dexascan as advised Q 9-12 years Colonoscopy Q5 years- done recently and reviewed Yearly PSA/YULISSA Routine physical exam with one's PCP on a yearly basis. DSE or cardiac stress test Q3-5 years post tx ROS: Denies fevers, chills, nausea, vomiting, diarrhea, abd pain, chest pain, sob, graft pain or constitutional signs or symptoms Medications: Prior to Admission medications Medication Sig Start Date End Date Taking? Authorizing Provider gabapentin (NEURONTIN) 100 mg Capsule Take 100 mg by mouth nightly. Yes PROVIDER, HISTORICAL valACYclovir (VALTREX) 1 gram Tablet Take 1,000 mg by mouth 2 times daily. Yes PROVIDER, HISTORICAL ondansetron (ZOFRAN) 4 mg Tablet TAKE 1 TABLET BY MOUTH EVERY 8 HOURS NEEDED FOR NAUSEA 10/10/14 Yes Eriberto Melgar MD pantoprazole (PROTONIX) 40 mg Tablet, Delayed Release (E.C.) TAKE ONE TABLET BY MOUTH EVERY DAY 09/08/14 Yes Eriberto Melgar MD CELLCEPT 250 mg Capsule Take 2 capsules by mouth 2 times daily. 07/31/14 Yes Kj Alexandra MD Diabetic Supplies, [facility]an. [facility] form to [facility] medical for testing supplies 4 times per day 06/26/14 Yes Divya Coles MD traZODone (DESYREL) 50 mg Tablet Take 1 tablet by mouth nightly. 06/14/14 06/14/15 Yes Eriberto Melgar MD tacrolimus (PROGRAF) 1 mg Capsule Take 2 capsules by mouth 2 times daily. 06/07/14 Yes Eriberto Melgar MD aspirin 81 mg Tablet, Chewable Take 81 mg by mouth daily. Yes PROVIDER, HISTORICAL lisinopril (PRINIVIL;ZESTRIL) 20 mg Tablet Take 20 mg by mouth daily. Yes PROVIDER, HISTORICAL levothyroxine (SYNTHROID) 175 mcg tablet Take 175 mcg by mouth daily. Yes PROVIDER, HISTORICAL Blood Sugar Diagnostic (ONE TOUCH ULTRA TEST) test strip Use To check BG four times daily. Dx. 250.12/02/13 Yes Eriberto Melgar MD Magnesium Gluconate 27 mg (500 mg) Tab Take 1 tablet by mouth daily. Yes PROVIDER, HISTORICAL traMADol (ULTRAM) 50 mg tablet Take 100 mg by mouth 2 times daily. 07/08/13 Yes PROVIDER, HISTORICAL acetaminophen (TYLENOL) 325 mg tablet Take 2 tablets by mouth every 4 hours as needed (Pain, Fever. if oral temperature greater than 38.5 Centigrade). 09/02/13 Yes Lonnie Alarcon MD sildenafil (VIAGRA) 100 [...] TD ??? Simvastatin PHYSICAL EXAM: Filed Vitals: 03/07/15 0916 BP: 144/90 Pulse: 66 Temp: 36.7 ??C (98 ??F) Resp: 15 Gen - AAO x 3 in NAD Skin - No exanthem. HEENT - Mucous membranes moist. Chest: Lungs clear to ausculatation w/o wheezes/ rhonchi/ crackles. Heart - S1 and S2 clear w/o murmur, gallop, or rub. JVP not elevated. Abd - Soft. + BS. No bruit. Non tender. No organomegaly. Graft NT and no bruits Ext - Warm. No cyanosis. No dependent edema. Labs/ Imaging: Results for REESE HSU ( ) as of 03/15/2015 05:39 Ref. Range 03/07/2015 08:32 03/07/2015 08:36 WBC Latest Range: 4.0-10.0 x10(3)/mcL 7.4 RBC Latest Range: 4.63-6.08 x10(6)/mcL 4.48 (L) Hemoglobin Latest Range: 13.7-17.5 gm/dL 13.3 (L) Hematocrit Latest Range: 40.0-51.0 % 39.0 (L) MCV Latest Range: 79.0-92.0 fL 87.1 MCH Latest Range: 25.6-32.2 pg 29.7 MCHC Latest Range: 32.0-36.5 gm/dL 34.1 RDWSD Latest Range: 35.0-46.0 fL 40.6 RDWCV Latest Range: 10.9-14.4 % 12.7 Platelets Latest Range: 145-370 x10(3)/mcL 250 MPV Latest Range: 9.0-12.0 fL 10.4 Plat Immature % Latest Range: 0.0-7.4 % 2.[address] % Latest Range: 0.5-2.4 % 1.[address] Abs Latest Range: 0.027-0.095 x10(6)/mcL 0.060 Immature Retic% Latest Range: 2.3-15.9 % 1.8 (L) Reticulated Hgb Latest Range: 28.5-38.9 pg 32.1 Neutr Abs (ANC) Latest Range: 1.50-6.30 x10(3)/mcL 3.35 Neutrophils % No range found 45.3 Immature Gran % No range found 0.30 Lymphocytes % No range found 46.2 Monocytes % No range found 6.4 Eosinophils % No range found 1.4 Basophils % No range found 0.4 Kym Gran Abs Latest Range: 0.00-0.05 x10(3)/mcL 0.02 Lymphocytes Abs Latest Range: 1.0-3.6 x10(3)/mcL 3.4 Monocyte Abs Latest Range: 0.2-1.0 x10(3)/mcL 0.5 Eosinophils Abs Latest Range: 0.0-0.5 x10(3)/mcL 0.1 Basophils Abs Latest Range: 0.0-0.2 x10(3)/mcL 0.0 Sodium Latest Range: 135-145 mmol/L 130 (L) Potassium Latest Range: 3.5-5.0 mmol/L 4.7 Chloride Latest Range: 98-107 mmol/L 92 (L) CO2 Latest Range: 22-31 mmol/L 27 Anion Gap Latest Range: 5-15 mmol/L 11 BUN Latest Range: 10-20 mg/dL 12 Creatinine Latest Range: 0.80-1.50 mg/dL 1.07 Estimated GFR Latest Range: >=60 >60 Glucose Lvl Latest Range: 65-199 mg/dL 117 Calcium Latest Range: 8.5-10.5 mg/dL 9.5 Magnesium Latest Range: 0.69-1.07 mmol/L 0.81 Phosphorus Latest Range: 2.5-4.5 mg/dL 3.4 Uric Acid Latest Range: 3.5-8.5 mg/dL 5.7 Total Protein Latest Range: 6.1-8.0 gm/dL 7.2 Albumin Latest Range: 3.2-5.2 gm/dL 4.5 Total Bilirubin Latest Range: 0.2-1.3 mg/dL 1.0 Bili, Direct Latest Range: 0.0-0.3 mg/dL 0.2 Alk Phos Latest Range: 40-120 unit/L 124 (H) AST Latest Range: 0-39 unit/L 22 ALT Latest Range: 0-55 unit/L 21 Amylase Latest Range: 28-100 unit/L 58 Lipase Latest Range: 0-60 unit/L 20 U Protein Ran Latest Range: 0-12 mg/dL <6 Chol, Total Latest Range: <=199 mg/dL 142 Tacrolimus Lvl No range found 6.8 Color UA Latest Range: Yellow Yellow Appearance UA Latest Range: Clear Clear Spec [place] UA Latest Range: 1.002-1.030 1.012 pH UA Latest Range: 5.0-8.0 6.0 Protein [...] Negative WBC UA Latest Range: 0-3 /HPF <1 RBC UA Latest Range: 0-3 /HPF <1 Squam Epith UA Latest Range: <=4 /HPF <1 U Creatinine No range found 91 Prot/Cre Ratio No range found <0.1 Impression/ Plan: Transplant Status S/p panc transplant 18 months out, stable graft function Recovering from spine surgery which was not corrective unfortunately Encouraged to continue with 4-5 L/day Immunosuppression PO4/Mg In range Hypertension Stable Infectious prophylaxis valcyte stopped as he is Ab + 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 Talia Mcgarry MD Nephrology Fellow Pager # [phone] I examined the patient, reviewed all of the above findings and assessment of Dr. Mcgarry and formulated the recommendations which accurately reflect mine. documented in this encounter Plan of Treatment Not on filedocumented as of this encounter Procedures Procedure Name Priority Date/Time Associated Diagnosis Comme nts PROTEIN/CREATININE STAT 03/07/2015 8:36 Pancreas replaced b y Results for this RATIO, URINE AM EDT transplant procedure are in Need for prophylactic the re sults immunotherapy section. URINALYSIS WITH STAT 03/07/2015 8:36 Pancreas replaced by R esults for this REFLEX CULTURE AM EDT transplant procedure are in Need for prophylactic the re sults immunotherapy section. HEMOGRAM STAT 03/07/2015 8:32 Pancreas replaced by Resu lts for this AM EDT transplant procedure are in Need for prophylactic the re sults immunotherapy section. DIFFERENTIAL, STAT 03/07/2015 8:32 Pancreas replaced by Res ults for this AUTOMATED AM EDT transplant procedure are in Need for prophylactic the re sults immunotherapy section. TACROLIMUS LEVEL STAT 03/07/2015 8:32 Pancreas replaced by Results for this AM EDT transplant procedure are in Need for prophylactic the re sults immunotherapy section. RETICULOCYTE COUNT STAT 03/07/2015 8:32 Pancreas replaced b y Results for this AM EDT transplant procedure are in Need for prophylactic the re sults immunotherapy section. CBC (WITH DIFF) STAT 03/07/2015 8:32 Pancreas replaced by AM EDT transplant Need for prophylactic immunotherapy URIC ACID STAT 03/07/2015 8:32 Pancreas replaced by Resu lts for this AM EDT transplant procedure are in Need for prophylactic the re sults immunotherapy section. PHOSPHORUS STAT 03/07/2015 8:32 Pancreas replaced by Resu lts for this AM EDT transplant procedure are in Need for prophylactic the re sults immunotherapy section. MAGNESIUM STAT 03/07/2015 8:32 Pancreas replaced by Resu lts for this AM EDT transplant procedure are in Need for prophylactic the re sults immunotherapy section. LIPASE STAT 03/07/2015 8:32 Pancreas replaced by Resu lts for this AM EDT transplant procedure are in Need for prophylactic the re sults immunotherapy section. CHOLESTEROL, TOTAL STAT 03/07/2015 8:32 Pancreas replaced b y Results for this AM EDT transplant procedure are in Need for prophylactic the re sults immunotherapy section. AMYLASE STAT 03/07/2015 8:32 Pancreas replaced by Resu lts for this AM EDT transplant procedure are in Need for prophylactic the re sults immunotherapy section. COMPREHENSIVE STAT 03/07/2015 8:32 Pancreas replaced by Res ults for this METABOLIC PANEL AM EDT transplant procedure are in (NON-FASTING) Need for prophylactic the r esults immunotherapy section. documented in this encounter Results Protein/Creatinine Ratio, urine (03/07/2015 8:36 AM EDT) P athologist Signature U Creatinine 91 mg/dL CERNER MILLENNIUM U Protein Ran <6 0 - 12 CERNER mg/dL MILLENNIUM Comment: result rechecked-hp Prot/Cre Ratio <0.1 ratio CERNER MILLENNI UM Specimen Anatomical Collection Method Collection Time Receive d Time (Source) Location / / Volume Laterality Urine specimen 03/07/2015 8:36 AM 015 8:52 (specimen) EDT AM EDT Resulting Agency Comment Spec In Lab Eriberto Melgar MD URINE ORDERABLES Performing Organization Address City/State/[place] [address] CERNER MILLENNIUM Urinalysis with microscopic (03/07/2015 8:36 AM EDT) Patholo gist Method Time Signature [...] clinically indicated. Urobilinogen UA Normal Normal mg/dL CERNER MILL ENNIUM pH UA 6.0 5.0 - 8.0 CERNER MILLENNIUM Blood UA Negative Negative mg/dL CERNER MILLENNI UM Ketones UA Negative Negative mg/dL CERNER MILLENN IUM Nitrite UA Negative Negative CERNER MILLENNIUM Leukocytes UA Negative Negative mcL CERNER LALA NIUM Appearance UA Clear Clear CERNER MILLENNIU M Spec [place] UA 1.012 1.002 - 1.030 CERNER MIL LENNIUM Color UA Yellow Yellow CERNER MILLENNIUM RBC UA <1 0 - 3 /HPF CERNER MILLENNIUM WBC UA <1 0 - 3 /HPF CERNER MILLENNIUM Squam Epith UA <1 <=4 /HPF CERNER MILLENNI UM Specimen Anatomical Collection Method Collection Time Receive d Time (Source) Location / / Volume Laterality Urine specimen 03/07/2015 8:36 AM 015 8:51 (specimen) EDT AM EDT Resulting Agency Comment Spec In Lab Eriberto Melgar MD URINE ORDERABLES Performing Organization Address City/State/ZIP Code Phon e Number [place] [phone] CERNER MILLENNIUM Differential, Automated (03/07/2015 8:32 AM EDT) P athologist Signature Neutrophils % 45.3 % CERNER MILLENNIUM Neutr Abs (ANC) 3.35 1.50 - CERNER 6.30 MILLENNIUM x10(3)/mcL Lymphocytes % 46.2 % CERNER MILLENNIUM Lymphocytes Abs 3.4 1.0 - 3.6 CERNER x10(3)/mcL MILLENNIUM Monocytes % 6.4 % CERNER MILLENNIUM Monocyte Abs 0.5 0.2 - 1.0 CERNER x10(3)/mcL MILLENNIUM Eosinophils % 1.4 % CERNER MILLENNIUM Eosinophils Abs 0.1 0.0 - 0.5 CERNER x10(3)/mcL MILLENNIUM Basophils % 0.4 % CERNER MILLENNIUM Basophils Abs 0.0 0.0 - 0.2 CERNER x10(3)/mcL MILLENNIUM Immature Gran % 0.30 % CERNER MILLENNIUM Comment: Immature granulocytes(IG's)percentage an d absolute count will include metamyelocytes, myelocytes, and promyelo cytes. Blood smears from CBCs yielding IG's will be scanned manually for concor dance. If this scan disagrees with the automated IG or if promyelocytes are not ed, a manual differential will be performed. Kym Gran Abs 0.02 0.00 - 0.05 x10(3)/mcL CER NER MILLENNIUM Specimen Anatomical Collection Method Collection Time Receive d Time (Source) Location / / Volume Laterality Blood specimen 03/07/2015 8:32 AM 015 8:51 (specimen) EDT AM EDT Resulting Agency Comment Spec In Lab Eriberto Melgar MD HEMATOLOGY ORDERABLES Performing Organization Address City/State/[place] [address] CERNER MILLENNIUM (ABNORMAL) Hemogram (03/07/2015 8:32 AM EDT) P athologist Signature WBC 7.4 4.0 - 10.0 CERNER x10(3)/mcL MILLENNIUM RBC 4.48 (L) 4.63 - CERNER 6.08 MILLENNIUM x10(6)/mcL Hemoglobin 13.3 (L) 13.7 - CERNER 17.5 gm/dL MILLENNIUM Hematocrit 39.0 (L) 40.0 - CERNER 51.0 % MILLENNIUM MCV 87.1 79.0 - CERNER 92.0 fL MILLENNIUM MCH 29.7 25.6 - CERNER 32.2 pg MILLENNIUM MCHC 34.1 32.0 - CERNER 36.5 gm/dL MILLENNIUM Platelets 250 145 - 370 CERNER x10(3)/mcL MILLENNIUM RDWSD 40.6 35.0 - CERNER 46.0 fL MILLENNIUM RDWCV 12.7 10.9 - CERNER 14.4 % MILLENNIUM MPV 10.4 9.0 - 12.0 CERNER fL MILLENNIUM Specimen Anatomical Collection Method Collection Time Receive d Time (Source) Location / / Volume Laterality Blood specimen 03/07/2015 8:32 AM 015 8:51 (specimen) EDT AM EDT Resulting Agency Comment Spec In Lab Eriberto Melgar MD HEMATOLOGY ORDERABLES Performing Organization Address City/State/[place] [address] CERNER MILLENNIUM Amylase (03/07/2015 8:32 AM EDT) P athologist Signature Amylase 58 28 - 100 CERNER unit/L MILLENNIUM Specimen Anatomical Collection Method Collection Time Receive d Time (Source) Location / / Volume Laterality Blood specimen 03/07/2015 8:32 AM 015 8:51 (specimen) EDT AM EDT Resulting Agency Comment Spec In Lab Eriberto Melgar MD CHEMISTRY ORDERABLES Performing Organization Address City/[facility]/ZIP Code Phon e Number [address] CERNER MILLENNIUM Lipase (03/07/2015 8:32 AM EDT) athologist Signature Lipase 20 0 - 60 CERNER unit/L MILLENNIUM Specimen Anatomical Collection Method Collection Time Receive d Time (Source) Location / / Volume Laterality Blood specimen 03/07/2015 8:32 AM 015 8:51 (specimen) EDT AM EDT Resulting Agency Comment Spec In Lab Eriberto Melgar MD CHEMISTRY ORDERABLES Performing Organization Address City/[facility] Phon e Number [address] CERNER MILLENNIUM (ABNORMAL) Comprehensive metabolic panel (non-fasting) (03/07/2015 8:32 AM EDT) athologist Signature Glucose Lvl 117 65 - 199 CERNER mg/dL MILLENNIUM Comment: Diabetes: >=200 mg/dL plus symp toms BUN 12 10 - 20 mg/dL CERNER MILLENNIU M Creatinine 1.07 0.80 - 1.50 mg/dL CERNER MILL ENNIUM Comment: Please note that the pediatric reference intervals supplied above were not validated at [facility]. Results from pediatri c patients should be interpreted in conjunction to the patient's age, height and muscle mass. Sodium 130 (L) 135 - 145 mmol/L CERNER LALA [...] Chloride 92 (L) 98 - 107 mmol/L CERNER MILLENN IUM CO2 27 22 - 31 mmol/L CERNER MILLENNI UM Anion Gap 11 5 - 15 mmol/L CERNER MILLENNIU M Calcium 9.5 8.5 - 10.5 mg/dL CERNER LALA NIUM Total Protein 7.2 6.1 - 8.0 gm/dL FARNAZ MIL LENNIUM Albumin 4.5 3.2 - 5.2 gm/dL CERNER MILLENN IUM AST 22 0 - 39 unit/L CERNER MILLENNIU M ALT 21 0 - 55 unit/L CERNER MILLENNIU M Alk Phos 124 (H) 40 - 120 unit/L CERNER MILLENN IUM Total Bilirubin 1.0 0.2 - 1.3 mg/dL FARNAZ M ILLENNIUM Bili, Direct 0.2 0.0 - [...] the following links into your internet browser. [email or web address] Specimen Anatomical Collection Method Collection Time Receive d Time (Source) Location / / Volume Laterality Blood specimen 03/07/2015 8:32 AM 015 8:51 (specimen) EDT AM EDT Resulting Agency Comment Spec In Lab Eriberto Melgar MD CHEMISTRY ORDERABLES Performing Organization Address City/[facility]/ZIP Code Phon e Number [place] [phone] CERNER MILLENNIUM Magnesium (03/07/2015 8:32 AM EDT) P athologist Signature Magnesium 0.81 0.69 - 1.07 CERNER mmol/L MILLENNIUM Specimen Anatomical Collection Method Collection Time Receive d Time (Source) Location / / Volume Laterality Blood specimen 03/07/2015 8:32 AM 015 8:51 (specimen) EDT AM EDT Resulting Agency Comment Spec In Lab Eriberto Melgar MD CHEMISTRY ORDERABLES Performing Organization Address City/[facility]/[place] [address] CERNER MILLENNIUM Phosphorus (03/07/2015 8:32 AM EDT) athologist Signature Phosphorus 3.4 2.5 - 4.5 CERNER mg/dL MILLENNIUM Specimen Anatomical Collection Method Collection Time Receive d Time (Source) Location / / Volume Laterality Blood specimen 03/07/2015 8:32 AM 015 8:51 (specimen) EDT AM EDT Resulting Agency Comment Spec In Lab Eriberto Melgar MD CHEMISTRY ORDERABLES Performing Organization Address City/State/ZIP Code Phon e Number [address] CERNER MILLENNIUM Uric acid (03/07/2015 8:32 AM EDT) athologist Signature Uric Acid 5.7 3.5 - 8.5 CERNER mg/dL [facility] Specimen Anatomical Collection Method Collection Time Receive d Time (Source) Location / / Volume Laterality Blood specimen 03/07/2015 8:32 AM 015 8:51 (specimen) EDT AM EDT Resulting Agency Comment Spec In Lab Eriberto Melgar MD CHEMISTRY ORDERABLES Performing Organization Address City/State/ZIP Code Phon e Number [address] [facility] M[facility]UM Tacrolimus level (03/07/2015 8:32 AM EDT) athologist Signature Tacrolimus Lvl 6.8 ng/mL [facility] M[facility] Comment: Trough therapeutic: 5-15 ng/mL Specimen Anatomical Collection Method Collection Time Receive d Time (Source) Location / / Volume Laterality Blood specimen 03/07/2015 8:32 AM 015 (specimen) EDT 12:13 PM EDT Resulting Agency Comment Spec In Lab Eriberto Melgar MD CHEMISTRY ORDERABLES Performing Organization Address City/State/[place] [address] CERNER MILLENNIUM (ABNORMAL) Reticulocyte Count (03/07/2015 8:32 AM EDT) Patholo gist Method Time Signature Retic Ct % 1.4 0.5 - 2.4 CERNER % MILLENNIUM Retic Ct Abs 0.060 0.027 - CERNER 0.095 MILLENNIUM x10(6)/mcL Immature Retic% 1.8 (L) 2.3 - 15.9 CERNER % MILLENNIUM Reticulated Hgb 32.1 28.5 - CERNER 38.9 pg MILLENNIUM Plat Immature % 2.8 0.0 - 7.4 CERNER % MILLENNIUM Specimen Anatomical Collection Method Collection Time Receive d Time (Source) Location / / Volume Laterality Blood specimen 03/07/2015 8:32 AM 015 8:51 (specimen) EDT AM EDT Resulting Agency Comment Spec In Lab Eriberto Melgar MD HEMATOLOGY ORDERABLES Performing Organization Address City/[facility]/ZIP Code Phon e Number [address] CERNER MILLENNIUM Cholesterol, total (03/07/2015 8:32 AM EDT) P athologist Signature Chol, Total 142 <=199 mg/dL CERNER MILLENNIUM Comment: Recommendations of the NCEP Adult Treatm ent Panel for the following risk cutoff thresholds for the [place] populatio n: Desirable: <200 mg/dL Borderline High: 200-239 mg/dL High: > or = 240 mg/dL Specimen Anatomical Collection Method Collection Time Receive d Time (Source) Location / / Volume Laterality Blood specimen 03/07/2015 8:32 AM 015 8:51 (specimen) EDT AM EDT Resulting Agency Comment Spec In Lab Eriberto Melgar MD CHEMISTRY ORDERABLES Performing Organization Address City/[facility]/ZIP [place] Phon e Number [address] CERNER MILLENNIUM documented in this encounter Visit Diagnoses Diagnosis 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 Need for prophylactic immunotherapy Aftercare following organ transplant documented in this encounter Care Teams Housekeeper Cleaning Cooking Relationship Specialty Start Date End Date Anna Mullen MD PCP - General 12/03/10 [address] [place] [address] documented as of this encounter
--- OUTSIDE RECORDS SUMMARY | 2022-03-13 18:29 | XMS_ITS | Encounter Summary ---
:1965 Author Organization [facility] [place] [address] Care Team Providers Name Role Phone Anna Mullen MD Primary Care Provider Reason for Visit Auth/Cert - Closed Specialty Diagnoses / Procedures Referred By Contact Refer red To Contact Diagnoses abd pain/nausea/vomiting Procedures PRO UPPER GI ENDOSCOPY, DIAGNOSTIC EGD, UPPER GI ENDOSCOPY Referral ID Status Reason Start Date Expiration Date Visits Requ ested Visits Authorized [id number] Closed 1 1 Encounter Details Date Type Department Care Team Description 08/15/2015 Hospital Encounter Gastroenterology at [facility] [place] [address] CENTER [phone] GASTROENTEROLOGY DEPT. [place], [place] [address] Social History Tobacco Use Types [...] Sign Reading Time Taken Comments Blood Pressure 114/65 08/15/2015 10:55 AM EST Pulse 70 08/15/2015 10:55 AM EST Temperature - - Respiratory Rate 16 08/15/2015 10:55 AM EST Oxygen Saturation 95% 08/15/2015 10:55 AM EST Inhaled Oxygen Concentration - - Weight 89.8 kg (198 lb) 08/15/2015 9:45 AM EST Height - - Body Mass Index 26.85 08/13/2015 12:40 PM EST documented in this encounter Discharge Instructions Discharge InstructionsPerri Mcconnell RN - 08/15/2015 10:57 AM EST UPPER GI ENDOSCOPY WHAT TO EXPECT AFTER THE PROCEDURE After the test you may feel a little more gassy or bloated than usual, this is normal. ACTIVITY Because of the sedation that you received Your judgement and reaction time are affected ?? Go home and rest quietly for the remainder of the day. You may resume your normal activities tomorrow. ?? Change from one position to the next slowly. You may lose your balance unexpectedly Be careful on stairs, as you may be unsteady on your feet. FOR THE NEXT 24 HRS ?? DO NOT DRIVE OR OPERATE ANY MACHINERY ?? DO NOT DRINK ALCOHOLIC BEVERAGES ?? DO NOT SIGN LEGAL DOCUMENTS ?? If you are a smoker: DO NOT SMOKE WHILE YOU ARE ALONE Diet ?? Start by eating small portions of foods that ordinarily will not upset your stomach. Be gentle with what you choose to start with. ?? Drink plenty of fluids ( unless otherwise told not to) Medications You may have a mild sore throat. Ice chips, popsicles, over the counter throat lozenges or spray may help numb your throat. This procedure should not cause a fever. IV SITE-- slight redness or tenderness is normal, you can use warm compresses if you get concerned.If the tenderness +/or redness increases or foul drainage and a red streak occurs, please contact your PCP immediately. WHEN SHOULD YOU CALL FOR HELP? Call 911 anytime you think that you need emergency care. For example, call if: You passed out (lost consciousness). You cough up blood. You vomit blood or what looks like coffee grounds. You pass maroon or very bloody stools. Call your healthcare provider or seek immediate medical attention if: You have trouble swallowing. You have belly pain. Your stools are black or tarlike or have streaks of blood. You are sick to your stomach or cannot keep fluids down. Watch closely for changes in your health, and be sure to contact your doctor IF Your throat still hurts after a day or two You do not get better as expected. Thursday-Thursday Same Day Endo [phone] 7a-8p Otherwise contact [phone] and ask to speak to the human resources technician general production laborer Follow-up care is a du part of your treatment and safety. Be sure to make and go to all appointments, and call your doctor if you are having problems. Instructions have been reviewed and patient expresses understanding Patient InstructionsMauricio Gonsalez MD - 08/15/2015 10:47 AM EST Please see Recommendations in the Provation procedure report which is documented in the procedural note in E-[facility]. documented in this encounter Medications at Time [...] tablet daily. documented as of this encounter H&P Notes Mauricio Gonsalez MD - 08/15/2015 10:17 AM EST See my note from 36 hours ago; no interval change; consent signed for egd; risks explained; asa 2. documented in this encounter Plan of Treatment Not on filedocumented as of this encounter Procedures Procedure Name Priority Date/Time Associated Diagnosis Comme nts SURGICAL PATHOLOGY Routine 08/15/2015 10:47 AM Re sults for this REPORT EST procedure are i n the results section. SPECIMEN TO Routine 08/15/2015 10:47 AM Results for this PATHOLOGY EST procedure are i n the results section. SPECIMEN TO Routine 08/15/2015 10:47 AM Results for this PATHOLOGY EST procedure are i n the results section. EGD WITH BIOPSY 08/15/2015 10:27 AM abd (WRVU 2.49) EST pain/nausea/vomiting UPPER GI ENDOSCOPY Routine 08/15/2015 10:23 AM Re sults for this EST procedure are i n the results section. documented in this encounter Results Surgical Pathology Report (08/15/2015 10:47 AM EST) [employer] Method Time Signature Surgical [id number] ? Location: [facility] Pathology [facility] Report The signing pathologist has (i) examined the relevant preparation(s) for the specimen(s) and (ii) rendered or confirmed the diagnosis(es) . . ?Surgic al Pathology DIAGNOSIS A - Stomach, biopsy: - Chronic inactive gastritis with intestinal metaplasia. ??Immunostaining for H. pylori is negative. B - Duodenum, biopsy: - Duodenal mucosa, negative for diagnostic abnormality. 08/15/15 DNT 08/20/15 Verified by: ? Mg Yanez MD ?Pathologist ?(Electronic Signature ) The attending pathologist whose signature appears on this re port has reviewed all diagnostic slides and has edited the gross and/ or microscopic portion of the report in kathie dering the final pathologic diagnosis. CLINICAL INFORMATION Specimen Submitted: A - Stomach B - Duodenum Clinical History: Abdominal pain, weight loss status post pancreas transplant Clinical Diagnosis: A - gastric erythema; question HP B - question celiac, question excess eosinophils SPECIMEN PROCESSING A - Labeled/Fixative: Stomach, formalin. Quantity/Size: Six, ranging from 0.3-0.5 cm. Tissue Description: Soft, pink tissues. Sections/Processing: (T2) B - Labeled/Fixative: Duodenum, formalin. Quantity/Size: Four, ranging from 0.3-0.6 cm. Tissue Description: Soft, pink tissues. Sections/Processing: (T1) ??sns Specimen (Source) Anatomical Collection Method Collection Time Re ceived Time Location / / Volume Laterality 08/15/2015 10:47 AM EST Mauricio Gonsalez MD PATHOLOGY/CYTOLOGY ORDERABLE S Performing Organization Address City/State/[place] [address] [facility] Specimen to Pathology (surgical or derm) (08/15/2015 10:47 AM EST) Specimen Anatomical Collection Method Collection Time Receive d Time (Source) Location / / Volume Laterality AP Specimen 08/15/2015 10:47 08/15/2015 AM EST 10:47 AM EST Narrative CERNER MILLENNIUM - 08/15/2015 10:47 AM EST Specimen requisition ordered. ??Separate Pathology report to follow Mauricio Gonsalez MD PATHOLOGY/CYTOLOGY ORDERABLE S Performing Organization Address City/[facility]/[place] [address] FARNAZ SWENSON Specimen to Pathology (surgical or derm) (08/15/2015 10:47 AM EST) Specimen Anatomical Collection Method Collection Time Receive d Time (Source) Location / / Volume Laterality AP Specimen 08/15/2015 10:47 08/15/2015 AM EST 10:47 AM EST Narrative CERNER MILLENNIUM - 08/15/2015 10:47 AM EST Specimen requisition ordered. ??Separate Pathology report to follow Mauricio Gonsalez MD PATHOLOGY/CYTOLOGY ORDERABLE S Performing Organization Address City/[facility]/ZIP Code Phon e Number [address] CERGUILLERMINA SWENSON UPPER GI ENDOSCOPY (08/15/2015 10:23 AM EST) Component Value Ref Test Analysis Performed At [employer] Range Method Time Signature UPPER GI [facility] ENDOSCOPY Endoscopy Patient Name: Richard Hsu ? Procedure Date: 08/15/2015 10:23 AM ? Date of : 1965 ? Age: 49 ? Order #: [id number] ? Procedure: ? Upper GI endoscopy Indications: ? Epigastric abdominal pain, Nausea, ? unintentional weight loss Providers: ? Mauricio Gonsalez MD, Gwendolyn Alfredo, ? RN, Philippe Naylor, Manish Larson MD: ?Anna Mullen MD Medicines: ? Midazolam 2.5 mg IV, Fentanyl 150 ? micrograms IV, Diphenhydramin e 50 mg ? IV, Benzocaine spray Complications: ? No immediate complications. Procedure: ? The procedure, indications, benefi ts, ? risks and alternatives were e xplained ? to the patient. Specifically ? discussed were potential ? complications including, but not ? limited to, bleeding, perfora tion, ? infection, missing a cancer, and ? adverse medication reactions. The ? Endoscope was introduced thro [facility] the ? mouth, and advanced to the critical access hospitald part ? of duodenum. The patient tole rated ? the procedure well. The upper GI ? endoscopy was accomplished wi out ? difficulty. ? Findings: ? The examined duodenum was normal. Biopsies were taken ? with a cold forceps for histology. ? Patchy mildly erythematous mucosa without bleeding ? was found in the gastric antrum. Biopsies were taken ? with a cold forceps for histology. ? The gastric body was normal. ? The gastric fundus was normal. ? The Z-line was regular and was found 42 cm from the ? incisors. ? The examined esophagus was normal. ? Impression: ?- Normal examined duodenum. Biopsi ed. ? - Erythematous mucosa in the antrum. ? Biopsied. ? - Normal gastric body. ? - Normal gastric fundus. ? - Z-line regular, 42 cm from the ? incisors. ? - Normal esophagus. Recommendation: ?- Await pathology results. ? - Letter to be sent to liza machado and ? provider in 8-10 days. ? - Return to primary care phys ician as ? previously scheduled. ? Procedure Code(s): ?? --- Professional --- ? [address]9600, Esophagogastroduodenos copy, ? flexible, transoral; with bio psy, ? single or multiple CPT copyright 2014 [employer]. All rights reserved. The codes documented in this report are preliminary and upon bilingual branch manager review may be revised to meet current compliance requirements. Attending Participation: ? I personally performed the entire procedure. ? Mauricio Gonsalez MD 08/15/2015 11:13 AM This report has been signed electronically. Number of Addenda: 0 Note Initiated On: 08/15/2015 10:23 AM Specimen (Source) Anatomical Collection Method Collection Time Re ceived Time Location / / Volume Laterality 08/15/2015 10:23 AM EST Anna Mullen MD GENERAL SURGICAL ORDERABLES Performing Organization Address City/State/ZIP Code Phon e Number [facility] documented in this encounter Visit Diagnoses Not on filedocumented in this encounter Administered Medications Inactive Administered Medications - up to 3 most recent administrations Medication Order MAR Action Action Date Dose Rate Site lactated ringers infusion New Bag 08/15/2015 9:50 AM EST 100 mL/hr 100 mL/hr 100 mL/hr, Intravenous, CONTINUOUS, Starting on Thu08/15/15 at 1000, Until Thu08/15/15 at 1132, Endoscopy (Day of Procedure) documented in this encounter Active and Recently Administered Medications Times are shown in EST. Continuous Medication Order 08/13/2015 08/14/2015 08/15/2015 lactated ringers infusion (CANCELED) 0950 (New Bag - Provider: Crys Rm RN) 100 mL/hr, at 100 mL/hr, Intravenous, CO NTINUOUS, Starting Thu08/15/15 at 1000, Until Thu08/15/15 at 1132, Endo (Day of Procedure) PRN Medication Order 08/13/2015 08/14/2015 08/15/2015 benzocaine (TOPEX) 20 % oral spray (CANCELED) 1031 (Given - Provider: Gwendolyn Alfreod RN) ONCE PRN, Starting Thu08/15/15 at 1031, Intra-Operative (Intra- Procedure) diphenhydrAMINE (BENADRYL) injection (CANCELED) 1031 (Given - Provider: Gwendolyn Alfredo RN)1034 (Given - Provider: Gwendolyn Alfredo RN) ONCE PRN, Starting Thu08/15/15 at 1031, Until Thu08/15/15 at 1132, Intra- Operative (Intra-Procedure), Routine fentaNYL 50 mcg/mL multi-dose injection (CANCELED) 1031 (Given - Provider: Gwendolyn Alfredo RN)1034 (Given - Provider: Gwendolyn Alfredo RN)1040 (Given - Provider: Gwendolyn Alfredo RN)1042 (Given - Provider: Gwendolyn Alfredo RN) ONCE PRN, Starting Thu08/15/15 at 1031, Until Thu08/15/15 at 1132, Intra- Operative (Intra-Procedure), Routine midazolam (PF) (VERSED) 1 mg/mL multi-dose injection (CANCELED) 1031 (Given - Provider: Gwendolyn Alfredo RN)1034 (Given - Provider: Gwendolyn Alfredo RN)1040 (Given - Provider: Gwendolyn Alfredo RN) ONCE PRN, Starting Thu08/15/15 at 1031, Until Thu08/15/15 at 1132, Intra- Operative (Intra-Procedure), Routine documented in this encounter Care Teams Service Agent Relationship Specialty Start Date End Date Anna Mullen MD PCP - General 12/03/10 [address] [place] [address] documented as of this encounter
--- OUTSIDE RECORDS SUMMARY | 2022-03-13 18:29 | XMS_ITS | Encounter Summary ---
:1965 Author Organization [place] [address] Care Team Providers Name Role Phone Anna Mullen MD Primary Care Provider Encounter Details Date Type Department Care Team Description 05/01/2015 Hospital Encounter Laboratory [facility] [place] [address] TRANSPLANT SURGE [place], [place] [address] (Wo rk) Social History Tobacco [...] times daily. Diabetic Supplies, Fax form to [facility] 100 each 12 06/26/2014 1 10/14/2014 [facility] medical for testing supplies 4 times per [...] Diagnosis Comme nts LAVENDER TUBE HOLD Routine 05/01/2015 7:40 AM Res ults for this EDT procedure are i n the results section. TACROLIMUS LEVEL Routine 05/01/2015 7:40 AM Resul ts for this EDT procedure are i n the results section. documented in this encounter Results Lavender Tube HOLD (05/01/2015 7:40 AM EDT) [facility] Signature Lavender Hold Sample in [facility] lab. [facility] Specimen Anatomical Collection Method Collection Time Receive d Time (Source) Location / / Volume Laterality Blood specimen Venous Draw / 05/01/2015 7:40 AM 2014 8:39 (specimen) Unknown EDT PM EDT Eriberto Melgar MD HEMATOLOGY ORDERABLES Performing Organization Address City/[facility]/ZIP [facility] Phon e Number [address] [facility] Tacrolimus level (05/01/2015 7:40 AM EDT) athologist Signature Tacrolimus Lvl 6.1 ng/mL [facility] Comment: Trough therapeutic: 5-15 ng/mL Specimen Anatomical Collection Method Collection Time Receive d Time (Source) Location / / Volume Laterality Blood specimen Venous Draw / 05/01/2015 7:40 AM 2014 8:00 (specimen) Unknown EDT AM EDT Resulting Agency Comment Spec In Lab Eriebrto Melgar MD CHEMISTRY ORDERABLES Performing Organization Address City/[facility]/ZIP Code Phon e Number [address] [facility] documented in this encounter Visit Diagnoses Not on filedocumented in this encounter Care Teams Baccarat Manager Relationship Specialty Start Date End Date Anna Mullen MD PCP - General 12/03/10 [address] [place] [address] documented as of this encounter
--- OUTSIDE RECORDS SUMMARY | 2022-03-13 18:29 | XMS_ITS | Encounter Summary ---
:1965 Author Organization [facility] [place] [address] Care Team Providers Name Role Phone Anna Mullen MD Primary Care Provider Encounter Details Date Type Department Care Team Description 07/03/2015 Hospital [place] [address] Social History Tobacco Use Types Packs/Day [...] Release (E.C.) Diabetic Supplies, Fax form to [facility] 100 each 12 06/26/2014 1 10/14/2014 [facility] for testing supplies 4 times per [...] Diagnosis Comme nts LAVENDER TUBE HOLD Routine 07/03/2015 7:30 AM Res ults for this EST procedure are i n the results section. TACROLIMUS LEVEL Routine 07/03/2015 7:30 AM Resul ts for this EST procedure are i n the results section. documented in this encounter Results Lavender Tube HOLD (07/03/2015 7:30 AM EST) [facility] Method Time Signature [facility]ender [facility] Specimen Anatomical Collection Method Collection Time Receive d Time (Source) Location / / Volume Laterality Blood specimen Venous Draw / 07/03/2015 7:30 AM 2014 8:50 (specimen) Unknown EST PM EST Eriberto Melgar MD HEMATOLOGY ORDERABLES Performing Organization Address City/State/[place] [address] [facility] Tacrolimus level (07/03/2015 7:30 AM EST) P athologist Signature Tacrolimus Lvl 7.0 ng/mL [email or web address] Comment: Trough therapeutic: 5-15 ng/mL Specimen Anatomical Collection Method Collection Time Receive d Time (Source) Location / / Volume Laterality Blood specimen Venous Draw / 07/03/2015 7:30 AM 2014 8:07 (specimen) Unknown EST AM EST Resulting Agency Comment Spec In Lab Eriberto Melgar MD CHEMISTRY ORDERABLES Performing Organization Address City/[facility]/[place] [address] [facility] documented in this encounter Visit Diagnoses Not on filedocumented in this encounter Care Teams Rewind Operator Relationship Specialty Start Date End Date Anna Mullen MD PCP - General 12/03/10 [address] [place] [address] documented as of this encounter
--- OUTSIDE RECORDS SUMMARY | 2022-03-13 18:29 | XMS_ITS | Encounter Summary ---
:1965 Author Organization [facility] [place] [address] Care Team Providers Name Role Phone Anna Mullen MD Primary Care Provider Encounter Details Date Type Department Care Team Description 02/05/2015 Abstract Transplant Eriberto Melgar MD [facility] [place] [address] TRANSPLANT SURGERY [phone] [place] [address] (Wo rk) Social History Tobacco Use Types [...] on filedocumented in this encounter Care Teams Operators School Manager Relationship Specialty Start Date End Date Anna Mullen MD PCP - General 12/03/10 [address] [place] [address] documented as of this encounter
--- OUTSIDE RECORDS SUMMARY | 2022-03-13 18:29 | XMS_ITS | Encounter Summary ---
:1965 Author Organization [facility] [place] [address] Care Team Providers Name Role Phone Anna Mullen MD Primary Care Provider Reason for Visit Auth/Cert - Closed Specialty Diagnoses / Procedures Referred By Contact Refer red To Contact Diagnoses abd pain/nausea/vomiting Procedures PRO UPPER GI ENDOSCOPY, DIAGNOSTIC EGD, UPPER GI ENDOSCOPY Referral ID Status Reason Start Date Expiration Date Visits Requ ested Visits Authorized [id number] Closed 1 1 Encounter Details Date Type Department Care Team Description 08/15/2015 [place] [facility] Gonsalez MD EGD WITH BIOPSY ([facility] [address]) [place] [address] GASTROENTEROLOGY DEPT. [place], [place] [address] Social History Tobacco Use Types [...] better as expected. Thursday-Thursday Same Day Endo [phone] Otherwise contact [phone] and ask to speak to the car greaser organic section technical lead Follow-up care is a du part of [...] TAKE 1 TABLET BY 90 tablet 9 2 015 08/30/2015 mg Tablet MOUTH EVERY 8 [...] Surgical Pathology Report (08/15/2015 10:47 AM EST) [facility] Method Time Signature Surgical [id number] ? Location: [facility] Pathology [facility] Report The signing pathologist has (i) examined [...] Organization Address City/State/[place] [address] [facility] Specimen to Pathology (surgical or derm) (08/15/2015 10:47 AM EST) Specimen Anatomical Collection Method Collection Time Receive d Time (Source) Location / / Volume Laterality AP Specimen 08/15/2015 10:47 08/15/2015 AM EST 10:47 AM EST Narrative [facility] - 08/15/2015 10:47 AM EST Specimen requisition ordered. ??Separate Pathology report to follow Mauricio Gonsalez MD PATHOLOGY/CYTOLOGY ORDERABLE S Performing Organization Address City/State/[place] [address] [facility] Specimen to Pathology (surgical or derm) (08/15/2015 10:47 AM EST) Specimen Anatomical Collection Method Collection Time Receive d Time (Source) Location / / Volume Laterality AP Specimen 08/15/2015 10:47 08/15/2015 AM EST 10:47 AM EST Narrative [facility] - 08/15/2015 10:47 AM EST Specimen requisition ordered. ??Separate Pathology report to follow Mauricio Gonsalez MD PATHOLOGY/CYTOLOGY ORDERABLE S Performing Organization Address City/[facility] [place] [address] FARNAZ SWENSON UPPER GI ENDOSCOPY (08/15/2015 10:23 AM EST) Component Value Ref Test Analysis Performed At [facility] Range Method Time Signature UPPER GI [facility] ENDOSCOPY Endoscopy Patient Name: Richard Hsu ? Procedure Date: 08/15/2015 10:23 AM ? N: [id number] ? Date of : 1965 ? Age: 49 ? Order #: [id number] ? Procedure: ? Upper GI endoscopy Indications: [...] The ? Endoscope was introduced thro [facility] the ? mouth, and advanced to the [facility] part ? of duodenum. The patient tole rated ? the procedure well. The upper GI ? endoscopy was accomplished [facility] ? difficulty. ? Findings: ? The examined [...] Procedure Code(s): ?? --- Professional --- ? 04189, Esophagogastroduodenos copy, ? flexible, transoral; with bio psy, ? single or multiple CPT copyright 2014 [employer]. All rights reserved. The codes documented in this report are preliminary and upon forestry technician review may be revised to meet current [...] MAR Action Action Date Dose Rate Site benzocaine (TOPEX) 20 % oral Given 08/15/2015 10:31 AM EST 3 eac h spray ONCE PRN, Starting on Thu08/15/15 at 1031, Until Thu08/15/15 at 1132, Intra-Operative (Intra-Procedure) diphenhydrAMINE (BENADRYL) injection Given 08/15/2015 10:34 AM EST 25 mg ONCE PRN, Starting on Thu08/15/15 at 1031, Until Thu08/15/15 at 1132, Intra-Operative (Intra-Procedure), Routine Given 08/15/2015 10:31 AM EST 25 mg fentaNYL 50 mcg/mL multi-dose injection Given 08/15/2015 10:42 AM EST 25 mcg ONCE PRN, Starting on Thu08/15/15 at 1031, Until Thu08/15/15 at 1132, Intra-Operative (Intra-Procedure), Routine Given 08/15/2015 10:40 AM EST 25 mcg Given 08/15/2015 10:34 AM EST 50 mcg lactated ringers infusion New Bag 08/15/2015 9:50 AM EST 100 mL/hr 100 mL/hr 100 mL/hr, Intravenous, CONTINUOUS, Starting on Thu08/15/15 at 1000, Until Thu08/15/15 at 1132, Endoscopy (Day of Procedure) midazolam (PF) (VERSED) 1 mg/mL multi-dose Given 08/15/2015 10:40 AM EST 0.5 mg injection ONCE PRN, Starting on Thu08/15/15 at 1031, Until Thu08/15/15 at 1132, Intra-Operative (Intra-Procedure), Routine Given 08/15/2015 10:34 AM EST 1 mg Given 08/15/2015 10:31 AM EST 1 mg documented in this encounter Active and [...] spray (CANCELED) 1031 (Given - Provider: Gwendolyn Alfredo RN) ONCE PRN, Starting Thu08/15/15 at 1031, Intra-Operative (Intra- Procedure) diphenhydrAMINE (BENADRYL) injection (CANCELED) 1031 (Given - Provider: Gwendolyn Alfredo RN)1034 (Given - Provider: Gwendolyn Alfredo, MIGUELITO) ONCE PRN, Starting Thu08/15/15 at 1031, Until [...] Routine documented in this encounter Care Teams Handle Machine Operator Relationship Specialty Start Date End Date Anna Mullen MD PCP - General 12/03/10 [address] [place] [address] documented as of this encounter
--- OUTSIDE RECORDS SUMMARY | 2022-03-13 18:29 | XMS_ITS | Encounter Summary ---
:1965 Author Organization [facility] [place] [address] Care Team Providers Name Role Phone Anna Mullen MD Primary Care Provider Encounter Details Date Type Department Care Team Description 02/28/2015 Hospital Encounter Laboratory [facility] [place] [address] [employer] [place], [place] [address] (Wo rk) Social History Tobacco [...] times daily. Diabetic Supplies, Fax form to [facility] 100 each 12 06/26/2014 1 10/14/2014 [employer] for testing supplies 4 times per [...] Associated Diagnosis Comme nts TACROLIMUS LEVEL Routine 02/28/2015 7:15 AM Resul ts for this EDT procedure are i n the results section. documented in this encounter Results Tacrolimus level (02/28/2015 7:15 AM EDT) athologist Signature Tacrolimus Lvl 5.9 ng/mL [facility] Comment: Trough therapeutic: 5-15 ng/mL Specimen Anatomical Collection Method Collection Time Receive d Time (Source) Location / / Volume Laterality Blood specimen Venous Draw / 02/28/2015 7:15 AM 2014 8:17 (specimen) Unknown EDT AM EDT Resulting Agency Comment Spec In Lab Eriberto Melgar MD CHEMISTRY ORDERABLES Performing Organization Address City/State/[place] [address] [facility] documented in this encounter Visit Diagnoses Not on filedocumented in this encounter Care Teams Washing Machine Operator Relationship Specialty Start Date End Date Anna Mullen MD PCP - General 12/03/10 [address] [place] [address] documented as of this encounter
--- OUTSIDE RECORDS SUMMARY | 2022-03-13 18:29 | XMS_ITS | Encounter Summary ---
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 CMP W/FASTING GLUCOSE STAT 08/22/2015 9:42 Pancreas replace d by Results for this AM EST transplant procedure are in Need for prophylactic the re sults immunotherapy section. HEMOGRAM STAT 08/22/2015 9:42 Pancreas replaced by Resu lts for this AM EST transplant procedure are in Need for prophylactic the re sults immunotherapy section. DIFFERENTIAL, STAT 08/22/2015 9:42 Pancreas replaced by Res ults for this AUTOMATED AM EST transplant procedure are in Need for prophylactic the re sults immunotherapy section. GOLD TUBE HOLD Routine 08/22/2015 9:42 Pancreas replaced by Re sults for this AM EST transplant procedure are in Need for prophylactic the re sults immunotherapy section. LAVENDER TUBE HOLD Routine 08/22/2015 9:42 Pancreas replaced b y Results for this AM EST transplant procedure are in Need for prophylactic the re sults immunotherapy section. TACROLIMUS LEVEL STAT 08/22/2015 9:42 Pancreas replaced by Results for this AM EST transplant procedure are in Need for prophylactic the re sults immunotherapy section. 1,25-DIHYDROXYCHOLECA STAT 08/22/2015 9:42 Pancreas replace d by Results for this LCIFEROL AM EST transplant procedure are in Need for prophylactic the re sults immunotherapy section. VITAMIN D, 25-HYDROXY STAT 08/22/2015 9:42 Pancreas replace d by Results for this AM EST transplant procedure are in Need for prophylactic the re sults immunotherapy section. RETICULOCYTE COUNT STAT 08/22/2015 9:42 Pancreas replaced b y Results for this AM EST transplant procedure are in Need for prophylactic the re sults immunotherapy section. CBC (WITH DIFF) STAT 08/22/2015 9:42 Pancreas replaced by AM EST transplant Need for prophylactic immunotherapy URIC ACID STAT 08/22/2015 9:42 Pancreas replaced by Resu lts for this AM EST transplant procedure are in Need for prophylactic the re sults immunotherapy section. PHOSPHORUS STAT 08/22/2015 9:42 Pancreas replaced by Resu lts for this AM EST transplant procedure are in Need for prophylactic the re sults immunotherapy section. MAGNESIUM STAT 08/22/2015 9:42 Pancreas replaced by Resu lts for this AM EST transplant procedure are in Need for prophylactic the re sults immunotherapy section. LIPASE STAT 08/22/2015 9:42 Pancreas replaced by Resu lts for this AM EST transplant procedure are in Need for prophylactic the re sults immunotherapy section. HEMOGLOBIN A1C STAT 08/22/2015 9:42 Pancreas replaced by Re sults for this AM EST transplant procedure are in Need for prophylactic the re sults immunotherapy section. AMYLASE STAT 08/22/2015 9:42 Pancreas replaced by Resu lts for this AM EST transplant procedure are in Need for prophylactic the re sults immunotherapy section. LIPID PANEL (REFLEX STAT 08/22/2015 9:42 Pancreas replaced by Results for this DIRECT LDL) AM EST transplant procedure are in Need for prophylactic the re sults immunotherapy section. CALCIUM CREATININE STAT 08/22/2015 9:41 Pancreas replaced b y Results for this RATIO, RANDOM URINE AM EST transplant procedure are in Need for prophylactic the re sults immunotherapy section. PROTEIN/CREATININE STAT 08/22/2015 9:41 Pancreas replaced b y Results for this RATIO, URINE AM EST transplant procedure are in Need for prophylactic the re sults immunotherapy section. PHOSPHORUS, URINE, STAT 08/22/2015 9:41 Pancreas replaced b y Results for this RANDOM AM EST transplant procedure are in Need for prophylactic the re sults immunotherapy section. CREATININE, URINE, STAT 08/22/2015 9:41 Pancreas replaced b y Results for this RANDOM AM EST transplant procedure are in Need for prophylactic the re sults immunotherapy section. URINALYSIS WITH STAT 08/22/2015 9:41 Pancreas replaced by R esults for this REFLEX CULTURE AM EST transplant procedure are in Need for prophylactic the re sults immunotherapy section. documented in this encounter Results Differential, Automated (08/22/2015 9:42 AM EST) P athologist Signature Neutrophils % 45.1 % CERNER MILLENNIUM Neutr Abs (ANC) 2.33 1.50 - CERNER 6.30 MILLENNIUM x10(3)/mcL Lymphocytes % 46.4 % CERNER MILLENNIUM Lymphocytes Abs 2.4 1.0 - 3.6 CERNER x10(3)/mcL MILLENNIUM Monocytes % 6.2 % CERNER MILLENNIUM Monocyte Abs 0.3 0.2 - 1.0 CERNER x10(3)/mcL MILLENNIUM Eosinophils % 1.7 % CERNER MILLENNIUM Eosinophils Abs 0.1 0.0 [...] Melgar MD HEMATOLOGY ORDERABLES Performing Organization Address City/[facility]/ZIP [place] [address] CERNER MILLENNIUM (ABNORMAL) Hemogram (08/22/2015 9:42 AM EST) P athologist Signature WBC 5.2 4.0 - 10.0 CERNER x10(3)/mcL MILLENNIUM RBC 4.22 (L) 4.63 - CERNER 6.08 MILLENNIUM x10(6)/mcL Hemoglobin 12.2 (L) 13.7 - CERNER 17.5 gm/dL MILLENNIUM Hematocrit 36.1 (L) 40.0 - CERNER 51.0 % MILLENNIUM MCV 85.5 79.0 - CERNER 92.0 fL MILLENNIUM MCH 28.9 25.6 - CERNER 32.2 pg MILLENNIUM MCHC 33.8 32.0 - CERNER 36.5 gm/dL MILLENNIUM Platelets 232 145 - 370 CERNER x10(3)/mcL MILLENNIUM RDWSD 38.6 35.0 - CERNER 46.0 fL MILLENNIUM RDWCV 12.6 10.9 - CERNER 14.4 % MILLENNIUM MPV 9.9 9.0 - 12.0 CERNER fL MILLENNIUM Specimen Anatomical Collection Method Collection Time Receive d Time (Source) Location / / Volume Laterality Blood specimen 08/22/2015 9:42 AM 015 9:48 (specimen) EST AM EST Resulting Agency Comment Spec In Lab Eriberto Melgar MD HEMATOLOGY ORDERABLES Performing Organization Address City/[facility]/ZIP [place] [address] CERNER MILLENNIUM (ABNORMAL) Hemoglobin A1c (08/22/2015 9:42 AM EST) Analysis Performed At [facility] Time Signature Hemoglobin A1C 5.8 (H) 4.3 [...] Mellitus, Diabetes Care 2013; 36: Suppl. 1, S67-88 Est Avg Gluc 120 mg/dL CERNER MILLENNIUM Comment: eAG equivalents for HbA1c percentages: HbA1c(%) ?eAG(mg/dL) 6.0 ?126 6.5 ?140 7.0 ?154 7.5 ?169 8.0 ?183 8.5 ?197 9.0 ?212 9.5 ?226 10.0 ? 240 Limitations: The eAG calculation has not been validated on women, individuals below 18 years old and above 70 years old, and individuals with hemoglobinopathies. Additional resources are available on [facility] website: [email or web address].Sensitive Object/DHMCadacalc Edinson GRISSOM, Nathaniel J, Ari R, et al. ??Tr anslating the A1C assay into estimated average glucose values. ??Diabetes Care 2008:31(8):9906-0344. Specimen Anatomical Collection Method Collection Time Receive d Time (Source) Location / / Volume Laterality Blood specimen 08/22/2015 9:42 AM 015 9:48 (specimen) EST AM EST Resulting Agency Comment Spec In Lab Eriberto Melgar MD CHEMISTRY ORDERABLES Performing Organization Address City/[facility]/ZIP Code Phon e Number [address] [facility] Lavender Tube HOLD (08/22/2015 9:42 AM EST) Patholo gist Method Time Signature Lavender Hold Sample in [facility] Specimen Anatomical Collection Method Collection Time Receive d Time (Source) Location / / Volume Laterality Blood specimen 08/22/2015 9:42 AM 015 9:48 (specimen) EST AM EST Eriberto Melgar MD HEMATOLOGY ORDERABLES Performing Organization Address City/[facility]/ZIP Code Phon e Number [address] [facility] Gold Tube HOLD (08/22/2015 9:42 AM EST) P athologist Signature Gold Hold Sample in [facility] lab. [facility] Specimen Anatomical Collection Method Collection Time Receive d Time (Source) Location / / Volume Laterality Blood specimen 08/22/2015 9:42 AM 015 9:48 (specimen) EST AM EST Eriberto Melgar MD CHEMISTRY ORDERABLES Performing Organization Address City/[facility] Phon e Number [address] [facility] (ABNORMAL) VIT D Total Evaluation (08/22/2015 9:42 AM EST) P athologist Signature 25-OH Vit D 24 (L) 30 - 100 [facility] Total ng/mL [facility] Comment: Deficient <10 ng/mL Insufficient 10 to 29 ng/mL Sufficient 30 to 100 ng/mL Potential Intoxication >100 ng/mL According to the [place] National Osteoporosi s Foundation, Vitamin D concentrations >30 ng/mL are sufficient to protect bone health. ??The National Kidney Foundation has similarly stated that pat ients with Vitamin D concentrations <30ng/mL should be considered to be insu fficient or deficient. http://Splice Machine/DHMCnatlkidneyfoundat ion http://Splice Machine/DHMCVitD The [employer] Vitamin D Immunoassay detec [...] Melgar MD CHEMISTRY ORDERABLES Performing Organization Address City/[facility]/ZIP Code Phon e Number [address] CERNER MILLENNIUM 1,25-dihydroxycholecalciferol (08/22/2015 9:42 AM EST) athologist Signature Vit D 1,25 49 18 - 64 CERNER pg/mL MILLENNIUM Comment: Test Performed by: [place] [address] Investment Recovery Technician: Dung Buenrostro II, M.D., Ph.D. Specimen Anatomical Collection Method Collection Time Receive d Time (Source) Location / / Volume Laterality Blood specimen 08/22/2015 9:42 AM 015 (specimen) EST 11:00 AM EST Resulting Agency Comment Spec In Lab Eriberto Melgar MD CHEMISTRY ORDERABLES Performing Organization Address City/[facility]/ZIP Code Phon e Number [address] CERNER MILLENNIUM PTH (08/22/2015 9:42 AM EST) athologist Signature PTH 56 15 - 65 CERNER pg/mL MILLENNIUM Specimen Anatomical Collection Method Collection Time Receive d Time (Source) Location / / Volume Laterality Blood specimen 08/22/2015 9:42 AM 015 9:48 (specimen) EST AM EST Resulting Agency Comment Spec In Lab Eriberto Melgar MD CHEMISTRY ORDERABLES Performing Organization Address City/[facility]/ZIP [place] [address] CERNER MILLENNIUM Lipase (08/22/2015 9:42 AM EST) athologist Signature Lipase 18 0 - 60 CERNER unit/L MILLENNIUM Specimen Anatomical Collection Method Collection Time Receive d Time (Source) Location / / Volume Laterality Blood specimen 08/22/2015 9:42 AM 015 9:48 (specimen) EST AM EST Resulting Agency Comment Spec In Lab Eriberto Melgar MD CHEMISTRY ORDERABLES Performing Organization Address City/[facility]/ZIP Code Phon e Number [address] CERNER MILLENNIUM Amylase (08/22/2015 9:42 AM EST) athologist Signature Amylase 58 28 - 100 CERNER unit/L MILLENNIUM Specimen Anatomical Collection Method Collection Time Receive d Time (Source) Location / / Volume Laterality Blood specimen 08/22/2015 9:42 AM 015 9:48 (specimen) EST AM EST Resulting Agency Comment Spec In Lab Eriberto Melgar MD CHEMISTRY ORDERABLES Performing Organization Address City/[facility]/ZIP Code Phon e Number [address] [facility] MILLENNIUM Tacrolimus level (08/22/2015 9:42 AM EST) athologist Signature Tacrolimus Lvl 5.7 ng/mL CERNER MILLENNIUM Comment: Trough therapeutic: 5-15 ng/mL Specimen Anatomical Collection Method Collection Time Receive d Time (Source) Location / / Volume Laterality Blood specimen 08/22/2015 9:42 AM 015 (specimen) EST 11:05 AM EST Resulting Agency Comment Spec In Lab Eriberto Melgar MD CHEMISTRY ORDERABLES Performing Organization Address City/[facility]/ZIP Code Phon e Number [address] CERNER MILLENNIUM Uric acid (08/22/2015 9:42 AM EST) athologist Signature Uric Acid 6.0 3.5 - 8.5 CERNER mg/dL MILLENNIUM Specimen Anatomical Collection Method Collection Time Receive d Time (Source) Location / / Volume Laterality Blood specimen 08/22/2015 9:42 AM 12/23/2 015 9:48 (specimen) EST AM EST Resulting Agency Comment Spec In Lab Eriberto Melgar MD CHEMISTRY ORDERABLES Performing Organization Address City/[facility]/ZIP Code Phon e Number [address] CERNER MILLENNIUM Phosphorus (08/22/2015 9:42 AM EST) P athologist Signature Phosphorus 3.2 2.5 - 4.5 CERNER mg/dL MILLENNIUM Specimen Anatomical Collection Method Collection Time Receive d Time (Source) Location / / Volume Laterality Blood specimen 08/22/2015 9:42 AM 015 9:48 (specimen) EST AM EST Resulting Agency Comment Spec In Lab Eriberto Melgar MD CHEMISTRY ORDERABLES Performing Organization Address City/[facility]/ZIP Code Phon e Number [address] CERNER MILLENNIUM (ABNORMAL) Magnesium (08/22/2015 9:42 AM EST) P athologist Signature Magnesium 0.68 (L) 0.69 - 1.07 CERNER mmol/L MILLENNIUM Specimen Anatomical Collection Method Collection Time Receive d Time (Source) Location / / Volume Laterality Blood specimen 08/22/2015 9:42 AM 015 9:48 (specimen) EST AM EST Resulting Agency Comment Spec In Lab Eriberto Melgar MD CHEMISTRY ORDERABLES Performing Organization Address City/[facility] Phon e Number [address] CERNER MILLENNIUM Lipid panel (fasting) (08/22/2015 9:42 AM EST) P athologist Signature Chol, Total 118 <=199 mg/dL CERNER MILLENNIUM Comment: Recommendations of the NCEP Adult Treatm ent Panel for the following risk cutoff thresholds for the [place] popul[place] n: Desirable: <200 mg/dL Borderline High: 200-239 mg/dL High: > or = 240 mg/dL Triglycerides 59 <=149 mg/dL CERNER MILLENN IUM Comment: Reference Range: Normal triglycerides: ??<150 mg/dL Borderline high: ??150-199 mg/dL High: ??200-499 mg/dL Very high: ??>vg=775 mg/dL MARQUEZ 2001; 285(19):5068-5066 HDL 45 >=40 mg/dL FARNAZ SWENSON Comment: Reference range: ??Low HDL: ?? < 40 mg/dL ??Normal: ?40-60 mg/dL ??Desirable: > 60 mg/dL MARQUEZ 2001; 285(19):8683-5964 LDL Cholesterol 61 <=99 mg/dL FARNAZ ENGLISH Comment: Reference range: ?? Optimal: ?<100 mg/dL ?? Near Optimal/Above Optimal: ?? 100-1 29 mg/dL ?? Borderline high: ?130-159 mg/dL ?? High: ? 160-189 mg/dL ?? Very high: ?>xx=082 mg/dL MARQUEZ 2001: 285(19):9976-8981 Chol/HDL Ratio 2.6 ratio FARNAZ STEELE UM Comment: A Cholesterol to HDL ratio below 4:1 is desirable. ??Studies suggest that increased CAD risk occurs at ratios abov e 5 for females and above 6 for men. ? [place] [employer] Association ??(htt p://www.americanheart.org) ? Joy Int Med, 1994; 121:641 ? AM J Med, 1998; 105(1A):48S Specimen Anatomical Collection Method Collection Time Receive d Time (Source) Location / / Volume Laterality Blood specimen 08/22/2015 9:42 AM 015 9:48 (specimen) EST AM EST Resulting Agency Comment Spec In Lab Eriberto Melgar MD CHEMISTRY ORDERABLES Performing Organization Address City/State/[place] [address] FARNAZ SWENSON Reticulocyte Count (08/22/2015 9:42 AM EST) athologist Signature Retic Ct % 1.5 0.5 [...] Organization Address City/State/ZIP [place] [address] CERNER MILLENNIUM CMP w/fasting Glucose (08/22/2015 9:42 AM EST) athologist Signature Glucose 98 65 - 99 [...] of Diabetes Mellitus, Position Statement from the [place] [employer]. ??Diabete s Care, Volume 33, Supplement 1, Aug 2009 BUN 14 10 - 20 mg/dL CERNER MILLENNIU M Creatinine 1.07 0.80 - 1.50 mg/dL CERNER MILL ENNIUM Comment: Please note that the pediatric reference intervals supplied above were not validated at [facility]. Results from pediatri c patients should be [...] the following links into your internet browser. http://Splice Machine/DHnkdep http://Splice Machine/DHMCnkf Specimen Anatomical Collection Method Collection Time Receive d Time (Source) Location / / Volume Laterality Blood specimen 08/22/2015 9:42 AM 015 9:48 (specimen) EST AM EST Resulting Agency Comment Spec In Lab Eriberto Melgar MD CHEMISTRY ORDERABLES Performing Organization Address City/State/ZIP [place] [address] CERNER MILLENNIUM Protein/Creatinine Ratio, urine [...] Melgar MD URINE ORDERABLES Performing Organization Address City/[facility]/ZIP [place] [address] CERNER MILLENNIUM Phosphorus, urine, random (08/22/2015 9:41 AM EST) P athologist Signature U Phosphorus 12.0 mg/dL CERNER MILLENNIUM Specimen Anatomical Collection Method Collection Time Receive d Time (Source) Location / / Volume Laterality Urine specimen 08/22/2015 9:41 AM 015 9:48 (specimen) EST AM EST Resulting Agency Comment Spec In Lab Eriberto Melgar MD URINE ORDERABLES Performing Organization Address City/[facility]/ZIP [place] [address] CERNER MILLENNIUM Calcium Creatinine Ratio, random urine (08/22/2015 9:41 AM EST) P athologist Signature U Calcium 2.6 mg/dL CERNER MILLENNIUM U Creatinine 51 mg/dL CERNER MILLENNIUM Ca/Cre Ratio 0.05 ratio CERNER MILLENNIUM Specimen Anatomical Collection Method Collection Time Receive d Time (Source) Location / / Volume Laterality Urine specimen 08/22/2015 9:41 AM 015 9:48 (specimen) EST AM EST Resulting Agency Comment Spec In Lab Eriberto Melgar MD URINE ORDERABLES Performing Organization Address City/State/ZIP [place] [address] [facility] Creatinine, urine, random (08/22/2015 9:41 AM EST) P athologist Signature U Creatinine 51 mg/dL CERNER MILLENNIUM Specimen Anatomical Collection Method Collection Time Receive d Time (Source) Location / / Volume Laterality Urine specimen 08/22/2015 9:41 AM 015 9:48 (specimen) EST AM EST Resulting Agency Comment Spec In Lab Eriberto Melgar MD URINE ORDERABLES Performing Organization Address City/State/ZIP [place] [address] CERNER MILLENNIUM Urinalysis with reflex Culture (08/22/2015 9:41 AM EST) Patholo gist Method Time Signature [...] UA Clear Clear CERNER MILLENNIU M Spec [place] UA 1.009 1.002 - 1.030 CERNER MIL LENNIUM Color UA Straw Yellow CERNER [...] Organization Address City/State/ZIP Code Phon e Number [place] [phone] [facility] documented in this encounter Visit Diagnoses Diagnosis 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
--- OUTSIDE RECORDS SUMMARY | 2022-03-13 18:29 | XMS_ITS | Encounter Summary ---
:1965 Author Organization [facility] [place] [address] Care Team Providers Name Role Phone Anna Mullen MD Primary Care Provider Reason for Referral Diagnostic Test (Routine) - Specialty Diagnoses / Procedures Referred By Contact Refer red To Contact Radiology Diagnoses Abdominal pain of multiple sites Mauricio Gonsalez MD [facility] Rad Mri Procedures MRI Abdomen With/WO Contrast (GENERIC) MRI Abdomen With Contrast [facility] [place] [address] [place] [address] Referral ID Status Reason Start Date Expiration Visits Visits Date Requested Authorized [id number] Specialty 08/29/2015 08/28/2016 1 1 Service Requested Encounter Details Date Type Department Care Team Description 08/23/2015 Orders Only Gastroenterology at [facility] Mauricio Gonsalez, Abdominal pain of [facility] Unique [place] [address] [facility] [phone] [facility] [address] Social History Tobacco Use Types Packs/Day Years Used Date Never Smoker Smokeless Tobacco: Never Used Alcohol Use Standard Drinks/Week Comments No 0 (1 standard drink = 0.6 oz pure alcoho l) history of abuse, stopped 1996 Sex Assigned at Date Recorded Male 05/29/2021 11:28 PM EDT documented as of this encounter Plan of Treatment Not on filedocumented as of this encounter Results MRI Abdomen With/WO Contrast [...] CT abdomen pelvis from 014 FINDINGS: Pancreas: [place] pancreas is diffusely a trophic. Pancreatic allograft [...] CT abdomen pelvis from 014 FINDINGS: Pancreas: [place] pancreas is diffusely a trophic. Pancreatic allograft [...] multiple sites Abdominal pain, other specified site Abdominal pain of multiple sites Abdominal pain, other specified site documented in this encounter Care Teams Grouter Helper Relationship Specialty Start Date End Date Anna Mullen MD PCP - General 12/03/10 [address] [place] [address] documented as of this encounter
--- OUTSIDE RECORDS SUMMARY | 2022-03-13 18:29 | XMS_ITS | Encounter Summary ---
:1965 Author Organization [place] [address] Care Team Providers Name Role Phone Anna Mullen MD Primary Care Provider Reason for Visit Reason Comments Medication Refill Encounter Details Date Type Department Care Team Description 05/09/2015 Refill Solid Organ Transplant at [facility], Kj Rey MD [facility] [place] [address] [place] [address] [phone] (Wo rk) Social History Tobacco Use Types [...] on filedocumented in this encounter Care Teams Plow Holder Relationship Specialty Start Date End Date Anna Mullen MD PCP - General 12/03/10 [address] [place], [place] [address] documented as of this encounter
--- OUTSIDE RECORDS SUMMARY | 2022-03-13 18:29 | XMS_ITS | Encounter Summary ---
:1965 Author Organization [facility] [place] [address] Care Team Providers Name Role Phone Anna Mullen MD Primary Care Provider Encounter Details Date Type Department Care Team Description 02/08/2015 Interpretation Only Radiology at [facility] wn [facility] Ce nter None 1 [facility] [place] [address] Social History Tobacco Use Types Packs/Day [...] Priority Date/Time Associated Diagnosis Comme nts XR FLUORO NO RAD Routine 02/08/2015 6:36 AM Resul ts for this <1HR - RADIOLOGY EDT procedure a re in USE the results section. documented in this encounter Results XR Fluoro <1Hr - Radiology Use (02/08/2015 6:36 AM EDT) Anatomical Region Laterality Modality N/A Radiographic Imaging Specimen (Source) Anatomical Collection Method Collection Time Re ceived Time Location / / Volume Laterality 02/08/2015 6:36 AM EDT Narrative 02/08/2015 6:36 AM EDT APD Historical Result Principal Measurement Operator: ??LINDSAY ??ANGELA Mae INTRAOPERATIVE FLUOROSCOPY: A total of 5.7 seconds (5.44 mGy) of int raoperative fluoroscopy was used by Dr Nicholson. ?? There was no Radiologist present during the exam. Six spot images document the procedure. ?? Radiopaque instruments demonstrate the L4-5 level a s well as L5/S1 level. Lindsay Philip MD [facility]/sd [id number] CC: Procedure Note Unknown - 02/28/2019Formatting of this n ote might be different from the original. APD Historical Result Principal Measurement Operator: LINDSAY PHILIP INTRAOPERATIVE FLUOROSCOPY: A total of 5.7 seconds (5.44 mGy) of int raoperative fluoroscopy was used by Dr Nicholson. There was no Radiologist present during the exam. Six spot images document the procedure. Radiopaque instruments demonstrate the L4-5 level a s well as L5/S1 level. Lindsay Philip MD [facility]/sd [id number] CC: Unknown IMG FLUORO ORDERABLES documented in this encounter Visit Diagnoses Not on filedocumented in this encounter Care Teams Firefighter Relationship Specialty Start Date End Date Anna Mullen MD PCP - General 12/03/10 [address] [place] [address] documented as of this encounter
--- OUTSIDE RECORDS SUMMARY | 2022-03-13 18:29 | XMS_ITS | Encounter Summary ---
:1965 Author Organization [facility] [place] [address] Care Team Providers Name Role Phone Anna Mullen MD Primary Care Provider Encounter Details Date Type Department Care Team Description 08/23/2015 Orders Only Gastroenterology at [facility] Myrna Marroquin, [facility] [place] [address] Social History Tobacco Use Types Packs/Day [...] on filedocumented in this encounter Care Teams Paint Striping Machine Operator Relationship Specialty Start Date End Date Anna Mullen MD PCP - General 12/03/10 [address] [place] [address] documented as of this encounter
--- OUTSIDE RECORDS SUMMARY | 2022-03-13 18:29 | XMS_ITS | Encounter Summary ---
:1965 Author Organization [facility] [place] [address] Care Team Providers Name Role Phone Anna Mullen MD Primary Care Provider Reason for Visit Auth/Cert - Closed Specialty Diagnoses / Procedures Referred By Contact Refer red To Contact Diagnoses N/V S/P PANCREATIC TRANSPLANT Procedures EMERGENCY IPI Referral ID Status Reason Start Date Expiration Date Visits Requ ested Visits Authorized [id number] Closed 1 1 Encounter Details Date Type Department Care Team Description 08/30/2015 Office Visit Solid Organ Leilani Keller, H/O pancre as Transplant at [facility] transplant [facility] [address] [place] [address] [place] [address] [phone] Social History Tobacco Use Types Packs/Day Years Used Date Never Smoker Smokeless Tobacco: Never Used Alcohol Use Standard Drinks/Week Comments No 0 (1 standard drink = 0.6 oz pure alcoho l) history of abuse, stopped 1996 Sex Assigned at Date Recorded Male 05/29/2021 11:28 PM EDT documented as of this encounter Last Filed Vital Signs Vital Sign Reading Time Taken Comments Blood Pressure 130/89 08/30/2015 10:41 AM EST Pulse 92 08/30/2015 10:41 AM EST Temperature - - Respiratory Rate - - Oxygen Saturation 100% 08/30/2015 10:41 AM EST Inhaled Oxygen Concentration - - Weight 85.5 kg (188 lb 6.4 oz) 08/30/2015 10:41 AM EST Height 182.9 cm (6') 08/30/2015 10:41 AM EST Body Mass Index 25.55 08/30/2015 10:41 AM EST documented in this encounter Progress Notes Leilani Keller MD - 08/30/2015 4:30 PM EST Transplant ClinicEvaluation Date: August 30, 2015 Patient: Richard Hsu Referring MD: PCP ANNA MULLEN MD HPI: Richard Hsu is an 49 y.o. male. He is being seen for evaluation of possible hernia after pancreas transplant. He was doing well until several days ago when he developed severe pain whilelifting rocks/sand and the [employer]. He noticed a small hernia above the umbilicus in his wound. There was a bulge which he was able to reduce. Since that time, he has had diarrhea and nausea. He is able to keep some liquids down, but presented severely dehydrated. He denies fevers but has some chills. Patient Active Problem List Diagnosis Date Noted ??? Diabetes mellitus 01/15/2012 Priority: High ??? Gastroparesis due to DM 01/15/2012 Priority: High ??? Dehydration 08/30/2015 ??? Nevus 09/07/2014 ??? Vitiligo 09/07/2014 ??? 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 Pancreatitis 08/30/2013 ??? Immunosuppression 08/30/2013 ??? Stroke-like symptoms 01/15/2012 ??? Hypertension 01/15/2012 ??? Edema 01/15/2012 ??? Migraine 01/15/2012 ??? LBP radiating to right leg 01/28/2011 Past Medical History Diagnosis Date ??? Severe [...] GI ENDOSCOPY performed by CLAYTON BHAKTA at [facility] ENDOSCOPY ??? Pro upper gi endoscopy, biopsy 12/31/2011 UPPER GASTROINTESTINAL ENDOSCOPY,WITH BIOPSY SINGLE OR MULTIPLE performed by CLAYTON BHAKTA at [facility] ENDOSCOPY ??? Shoulder surgery ??? Carpal tunnel release ??? Appendectomy ??? Pro unlisted procedure, musculoskeletal system, general 10 years carpel tunnel ??? 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 Pro transplant allograft pancreas 08/28/2013 @PANCREATIC TRANSPLANT performed by Leilani Keller MD at [facility] MAIN OR ??? Pro transplant, prep donor pancreas 08/28/2013 @PREPARATION CADAVERIC PANCREAS, STANDARD performed by Leilani Keller MD at [facility] MAIN OR ??? Pro colonoscopy, diagnostic N/A 10/24/2014 COLONOSCOPY, DIAGNOSTIC performed by Anna Rapp MD at [facility] ENDOSCOPY ??? Pro upper gi endoscopy, biopsy N/A 08/15/2015 EGD WITH BIOPSY performed by Clayton Bhakta MD at [facility] ENDOSCOPY Family History Problem Relation Age of Onset ??? Alcohol Abuse Father ??? Coronary Artery Disease Maternal Grandmother ??? Diabetes Maternal Grandmother ??? Heart Disease Maternal Grandmother ??? High Blood Pressure Mother ??? High Blood Pressure Brother ??? Stroke Maternal Grandfather History Social History ??? 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 No current outpatient prescriptions on file. acetaminophen (TYLENOL) tablet 650 mg; aspirin chewable tablet 81 mg; mycophenolate (CELLCEPT) capsule 500 mg; citalopram (CeleXA) tablet 40 mg; [START ON 08/31/2015] levothyroxine (SYNTHROID) tablet 175mcg; lisinopril (PRINIVIL;ZESTRIL) tablet 20 mg; pantoprazole (PROTONIX) tablet 40 mg; ondansetron (ZOFRAN) tablet 8 mg; tacrolimus (PROGRAF) capsule 2 mg; sodium chloride 0.9 % flush 5 mL; sodium chloride 0.9 % flush 5-20 mL lidocaine (XYLOCAINE) 10 mg/mL (1 %) injection 3 mg; sodium chloride 0.9% infusion; traZODone (DESYREL) tablet 50 mg ROS: Review of Systems Constitutional: Positive for chills. Negative for fever. Respiratory: Negative for cough and shortness of breath. Cardiovascular: Negative for leg swelling. Gastrointestinal: Positive for nausea, abdominal pain, diarrhea and rectal pain. Genitourinary: Negative for hematuria. Neurological: Positive for weakness. Negative for tremors and syncope. Psychiatric/Behavioral: Negative for confusion. Physical Exam: Subjective: Symptoms: He reports weakness and diarrhea. No shortness of breath or cough. Diet: Poor intake. He reports nausea. Pain: He complains of pain that is moderate. He reports pain is improving. Objective: General Appearance: Uncomfortable. Vital signs: (most recent): Blood pressure 130/89, pulse 92, height 182.9 cm (6'), weight 85.458 kg (188 lb 6.4 oz), SpO2 100 %. No fever. Lungs: Normal respiratory rate and normal effort. Heart: Normal rate. Regular rhythm. Extremities: Normal range of motion. Neurological: Patient is alert and oriented to person, place and time. Abdomen: Abdomen is soft and non-distended. (Small (1 cm defect) near umbilcus)Bowel sounds are normal. There is sasha-umbilical tenderness. There is no mass. Pulses: Distal pulses are intact. Imaging studies: None Assessment: Richard Hsu has severe dehydration (Hb 15), diarrhea, and nausea. He needs to be admitted as heis at risk of pancreas thrombosis. Plan: 1. Admit for hydration and adjustment of immunosuppression 2. Evaluation and management of his diarrhea (check c.diff, O and P, norovirus) 3. Recheck labs in AM. MD: LEILANI KELLER Juany Gorman RN - 08/30/2015 12:[address] Keller, administered 1L normal saline over 2 hours for dehydration. Start time: 11:30a Stop time: 1:30p Juany Gorman RN [facility] Solid Organ Transplant [phone] (Pager: [phone]) documented in this encounter Plan of Treatment Not on filedocumented as of this encounter Procedures Procedure Name Priority Date/Time Associated Comments Diagnosis HEMOGRAM STAT 08/30/2015 11:42 H/O pancreas Results for this AM EST transplant procedure are i n the results section. DIFFERENTIAL, STAT 08/30/2015 11:42 H/O pancreas Results fo r this AUTOMATED AM EST transplant procedure are i n the results section. CBC (WITH DIFF) STAT 08/30/2015 11:42 H/O pancreas AM EST transplant URIC ACID STAT 08/30/2015 11:42 H/O pancreas Results for this AM EST transplant procedure are i n the results section. PHOSPHORUS STAT 08/30/2015 11:42 H/O pancreas Results for this AM EST transplant procedure are i n the results section. MAGNESIUM STAT 08/30/2015 11:42 H/O pancreas Results for this AM EST transplant procedure are i n the results section. LIPASE STAT 08/30/2015 11:42 H/O pancreas Results for this AM EST transplant procedure are i n the results section. AMYLASE STAT 08/30/2015 11:42 H/O pancreas Results for this AM EST transplant procedure are i n the results section. COMPREHENSIVE STAT 08/30/2015 11:42 H/O pancreas Results fo r this METABOLIC PANEL AM EST transplant procedure ar e in (NON-FASTING) the results section. documented in this encounter Results (ABNORMAL) Differential, Automated (08/30/2015 11:42 AM EST) [facility] gist Method Time Signature Neutrophils % 69.9 % CERNER MILLENNIUM Neutr Abs (ANC) 6.90 (H) 1.50 - CERNER 6.30 MILLENNIUM x10(3)/mc L Lymphocytes % 25.3 % CERNER MILLENNIUM Lymphocytes Abs 2.5 1.0 - 3.6 CERNER x10(3)/mc MILLENNIUM L Monocytes % 4.4 % CERNER MILLENNIUM Monocyte Abs 0.4 0.2 - 1.0 CERNER x10(3)/mc MILLENNIUM L Eosinophils % 0.2 % CERNER MILLENNIUM Eosinophils Abs 0.0 0.0 - 0.5 CERNER x10(3)/mc MILLENNIUM L Basophils % 0.1 % CERNER MILLENNIUM Basophils Abs 0.0 0.0 - 0.2 CERNER x10(3)/mc MILLENNIUM L Immature Gran % 0.10 % CERNER MILLENNIUM Comment: Immature granulocytes(IG's)percentage an [...] Location / / Volume Laterality Blood specimen 08/30/2015 11:42 5 (specimen) AM EST 12:13 PM EST Resulting Agency Comment Spec In Lab Leilani Keller MD HEMATOLOGY ORDERABLES Performing Organization Address City/[facility]/[place] [address] CERNER MILLENNIUM Hemogram (08/30/2015 11:42 AM EST) P athologist Signature WBC 9.9 4.0 - 10.0 CERNER x10(3)/mcL MILLENNIUM RBC 5.20 4.63 - 6.08 CERNER x10(6)/mcL MILLENNIUM Hemoglobin 15.2 13.7 - 17.5 CERNER gm/dL MILLENNIUM Hematocrit 44.5 40.0 - 51.0 CERNER % MILLENNIUM MCV 85.6 79.0 - 92.0 CERNER fL MILLENNIUM MCH 29.2 25.6 - 32.2 CERNER pg MILLENNIUM MCHC 34.2 32.0 - 36.5 CERNER gm/dL MILLENNIUM Platelets 255 145 - 370 CERNER x10(3)/mcL MILLENNIUM RDWSD 39.9 35.0 - 46.0 CERNER fL MILLENNIUM RDWCV 13.1 10.9 - 14.4 CERNER % MILLENNIUM MPV 10.8 9.0 - 12.0 CERNER fL MILLENNIUM Specimen Anatomical Collection Method Collection Time Receive d Time (Source) Location / / Volume Laterality Blood specimen 08/30/2015 11:42 5 (specimen) AM EST 12:13 PM EST Resulting Agency Comment Spec In Lab Leilani Keller MD HEMATOLOGY ORDERABLES Performing Organization Address City/[facility]/[place] [address] CERNER MILLENNIUM Uric acid (08/30/2015 11:42 AM EST) P athologist Signature Uric Acid 6.7 3.5 - 8.5 CERNER mg/dL MILLENNIUM Specimen Anatomical Collection Method Collection Time Receive d Time (Source) Location / / Volume Laterality Blood specimen 08/30/2015 11:42 5 (specimen) AM EST 12:13 PM EST Resulting Agency Comment Spec In Lab Leilani Keller MD CHEMISTRY ORDERABLES Performing Organization Address City/[facility]/ZIP Code Phon e Number [address] CERNER MILLENNIUM (ABNORMAL) Phosphorus (08/30/2015 11:42 AM EST) P athologist Signature Phosphorus 2.0 (L) 2.5 - 4.5 CERNER mg/dL MILLENNIUM Specimen Anatomical Collection Method Collection Time Receive d Time (Source) Location / / Volume Laterality Blood specimen 08/30/2015 11:42 5 (specimen) AM EST 12:13 PM EST Resulting Agency Comment Spec In Lab Leilani Keller MD CHEMISTRY ORDERABLES Performing Organization Address City/[facility]/ZIP Code Phon e Number [address] CERNER MILLENNIUM Magnesium (08/30/2015 11:42 AM EST) P athologist Signature Magnesium 0.94 0.69 - 1.07 CERNER mmol/L MILLENNIUM Specimen Anatomical Collection Method Collection Time Receive d Time (Source) Location / / Volume Laterality Blood specimen 08/30/2015 11:42 5 (specimen) AM EST 12:13 PM EST Resulting Agency Comment Spec In Lab Leilani Keller MD CHEMISTRY ORDERABLES Performing Organization Address City/State/ZIP Code Phon e Number [address] CERNER MILLENNIUM Lipase (08/30/2015 11:42 AM EST) P athologist Signature Lipase 20 0 - 60 CERNER unit/L MILLENNIUM Specimen Anatomical Collection Method Collection Time Receive d Time (Source) Location / / Volume Laterality Blood specimen 08/30/2015 11:42 5 (specimen) AM EST 12:13 PM EST Resulting Agency Comment Spec In Lab Leilani Keller MD CHEMISTRY ORDERABLES Performing Organization Address City/State/[place] [address] CERNER MILLENNIUM (ABNORMAL) Comprehensive metabolic panel (non-fasting) (08/30/2015 11:42 AM EST) P athologist Signature Glucose Lvl 139 65 - 199 CERNER mg/dL MILLENNIUM Comment: Diabetes: >=200 mg/dL plus symp toms BUN 17 10 - 20 mg/dL CERNER MILLENNIU M Creatinine 1.35 0.80 - 1.50 mg/dL CERNER MILL ENNIUM Comment: Please note that the pediatric reference intervals supplied above were not validated at [facility]. Results from pediatri c patients should be interpreted in conjunction to the patient's age, height and muscle mass. Sodium 136 135 - 145 mmol/L CERNER LALA NIUM Potassium 5.5 (H) 3.5 - 5.0 mmol/L CERNER LALA NIUM Comment: Please note: ??Patients with WBC >100,00 0 may have falsely elevated Potassium levels. ??For accurate Potassium quantif ication in these patients send serum separator tube (gold top) for subsequent determinations. ??Contact the Clinical Chemistry Laboratory if there are any qu estions. Chloride 98 98 - 107 mmol/L CERNER MILLENN IUM CO2 21 (L) 22 - 31 mmol/L CERNER MILLENNI UM Anion Gap 17 (H) 5 - 15 mmol/L CERNER MILLENNIU M Calcium 10.2 8.5 - 10.5 mg/dL CERNER LALA NIUM Total Protein 8.3 (H) 6.1 - 8.0 gm/dL CERNER MIL LENNIUM Albumin 5.1 3.2 - 5.2 gm/dL CERNER MILLENN IUM AST Not Perf 0 - 39 unit/L CERNER MILLENNIU M Comment: Unable to quantitate due to kenan ple hemolysis. Sample redraw suggested. blr ALT 27 0 - 55 unit/L CERNER MILLENNIU M Alk Phos 123 (H) 40 - 120 unit/L CERNER MILLENN IUM Total Bilirubin 2.1 (H) 0.2 - 1.3 mg/dL CERNER M ILLENNIUM Bili, Direct 0.3 0.0 - 0.3 mg/dL CERNER MILL ENNIUM Estimated GFR 57 (L) >=60 CERNER MILLENNIU M Comment: This estimated [...] the following links into your internet browser. [email or web address] Specimen Anatomical Collection Method Collection Time Receive d Time (Source) Location / / Volume Laterality Blood specimen 08/30/2015 11:42 5 (specimen) AM EST 12:13 PM EST Resulting Agency Comment Spec In Lab Leilani Keller MD CHEMISTRY ORDERABLES Performing Organization Address City/[facility]/ZIP Code Phon e Number [address] CERNER MILLENNIUM Amylase (08/30/2015 11:42 AM EST) P athologist Signature Amylase 66 28 - 100 CERNER unit/L MILLENNIUM Specimen Anatomical Collection Method Collection Time Receive d Time (Source) Location / / Volume Laterality Blood specimen 08/30/2015 11:42 5 (specimen) AM EST 12:13 PM EST Resulting Agency Comment Spec In Lab Leilani Keller MD CHEMISTRY ORDERABLES Performing Organization Address City/[facility] Phon e Number [address] CERNER MILLENNIUM documented in this encounter Visit Diagnoses Diagnosis H/O pancreas transplant 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 documented in this encounter Administered Medications Inactive Administered Medications - up to 3 most recent administrations Medication Order MAR Action Action Date Dose Rate Site sodium chloride injection Given 08/30/2015 11:30 AM EST 1,000 mL s 1,000 mL 1,000 mL, Intravenous, ONCE, 1 dose, On Vanessa 08/30/15 at 1130, Administer 1L normal saline over 2 hours. 500cc/hr., Routine documented in this encounter Care Teams Small Products Ii Assembler Relationship Specialty Start Date End Date Anna Mullen MD PCP - General 12/03/10 [address] [place] [address] documented as of this encounter
--- OUTSIDE RECORDS SUMMARY | 2022-03-13 18:30 | XMS_ITS | Encounter Summary ---
:1965 Author Organization [facility] [place] [address] Care Team Providers Name Role Phone Anna Mullen MD Primary Care Provider Encounter Details Date Type Department Care Team Description 04/01/2014 Hospital Encounter Laboratory Eriberto Melgar [facility] [place] [address] [place] SURGE [place], [place] [address] (Wo rk) Social History Tobacco [...] 6 09/14/2012 mg tablet Dx code :250.60 levothyroxine Take 150 mcg by mouth 0 07/31/2017 (SYNTHROID) 175 mcg daily. tablet Blood Sugar Diagnostic Use To check BG four 400 each 3 11/201308/13/2015 (ONE TOUCH ULTRA TEST) times daily. Dx. test strip 250.0 mycophenolate (CELLCEPT) Take 500 mg by mouth 0 07/31/2014 250 mg capsule 2 times daily. Magnesium Gluconate 27 Take 1 tablet by 0 08/22/2015 mg (500 mg) Tab mouth daily as needed. HYDROmorphone (DILAUDID) Take 2 tablets by 50 tablet 0 03/11/201304/30/2014 2 mg tablet mouth every 4 hours as needed for Pain for 180 days. tacrolimus (PROGRAF) 1 Take 2 capsules by 0 11/0106/07/2014 mg capsule mouth 2 times daily. traMADol (ULTRAM) 50 mg Take 100 mg by mouth 0 02/22/2016 tablet 2 times daily. traZODone (DESYREL) 50 Take 1 tablet by 60 tablet 2 014 05/31/2014 mg tabletIndications: mouth nightly. Insomnia, unspecified sulfamethoxazole-trimeth Take 1 tablet by 0 09/08/2014 oprim (BACTRIM;SEPTRA) mouth. THU-THU-THU 400-80 mg per tablet ondansetron (ZOFRAN) 4 Take 1 tablet by 90 tablet 11 014 10/08/2014 mg tablet mouth every 8 hours as needed for Nausea. valGANCiclovir (VALCYTE) Take 450 mg by mouth 0 05/31/2014 450 mg tablet daily. sulfamethoxazole-trimeth Take 1 tablet by 90 tablet 3 09/0709/08/2014 oprim (BACTRIM DS) mouth three times a 800-160 mg per tablet week for 30 days. pantoprazole (PROTONIX) Take 1 tablet by 90 tablet 3 201309/08/2014 40 mg tablet mouth daily. acetaminophen (TYLENOL) Take 2 tablets by 30 tablet 0 09/0205/22/2020 325 mg tablet mouth every 4 hours as needed (Pain, Fever. if oral temperature greater than 38.5 Centigrade). Diabetic Supplies, Fax form to [facility] 100 each 12 09/02/2013 0 05/10/2014 [employer] for testing supplies 10 times per day citalopram (CELEXA) 20 Take 40 mg by mouth 0 08/06/2016 mg tablet daily. aspirin 325 mg tablet Take 325 mg by mouth 0 05/31/2014 daily. documented as of this encounter Plan of Treatment Not on filedocumented as of this encounter Procedures Procedure Name Priority Date/Time Associated Diagnosis Comme nts TACROLIMUS LEVEL Routine 04/01/2014 9:50 AM Resul ts for this EDT procedure are i n the results section. documented in this encounter Results Tacrolimus level (04/01/2014 9:50 AM EDT) P athologist Signature Tacrolimus Lvl 6.8 ng/mL CERNER MILLENNIUM Comment: Trough therapeutic: 5-15 ng/mL Specimen Anatomical Collection Method Collection Time Receive d Time (Source) Location / / Volume Laterality Blood specimen 04/01/2014 9:50 AM 014 8:08 (specimen) EDT AM EDT Resulting Agency Comment Spec In Lab Eriberto Melgar MD CHEMISTRY ORDERABLES Performing Organization Address City/State/[place] [address] CERNER MILLENNIUM documented in this encounter Visit Diagnoses Not on filedocumented in this encounter Care Teams Commercial Energy Auditor Relationship Specialty Start Date End Date Anna Mullen MD PCP - General 12/03/10 [address] [place] [address] documented as of this encounter
--- OUTSIDE RECORDS SUMMARY | 2022-03-13 18:30 | XMS_ITS | Encounter Summary ---
:1965 Author Organization [facility] [place] [address] Care Team Providers Name Role Phone Anna Mullen MD Primary Care Provider Encounter Details Date Type Department Care Team Description 10/02/2014 Hospital Encounter Laboratory [facility] [place] [address] TRANSPLANT SURGE [place], [place] [address] (Wo rk) Social History Tobacco [...] 6 09/14/2012 mg tablet Dx code :250.60 sulfamethoxazole-trimet TAKE ONE TABLET BY 90 tablet 3 05/201510/24/2014 hoprim (BACTRIM DS) MOUTH EVERY DAY 800-160 mg Tablet DIRECTED pantoprazole (PROTONIX) TAKE ONE TABLET BY 90 tablet 3 05/201509/09/2015 40 mg Tablet, Delayed MOUTH EVERY DAY Release (E.C.) CELLCEPT 250 mg Capsule Take 2 capsules by 360 capsule 3 08/201305/09/2015 mouth 2 times daily. Diabetic Supplies, Fax form to [facility] 100 each 12 06/26/2014 1 10/14/2014 [facility] [place] medical for testing supplies 4 times per [...] mouth 0 02/22/2016 tablet 2 times daily. ondansetron (ZOFRAN) 4 Take 1 tablet by 90 tablet 11 014 10/08/2014 mg tablet mouth every 8 hours as needed for Nausea. acetaminophen (TYLENOL) Take 2 tablets by 30 [...] Associated Diagnosis Comme nts TACROLIMUS LEVEL Routine 10/02/2014 10:05 AM Resu lts for this EST procedure are i n the results section. documented in this encounter Results Tacrolimus level (10/02/2014 10:05 AM EST) P athologist Signature Tacrolimus Lvl 6.6 ng/mL CERNER MILLENNIUM Comment: Trough therapeutic: 5-15 ng/mL Specimen Anatomical Collection Method Collection Time Receive d Time (Source) Location / / Volume Laterality Blood specimen Venous Draw / 10/02/2014 10:05 10/03/19 15 7:55 (specimen) Unknown AM EST AM EST Resulting Agency Comment Spec In Lab Eriberto Melgar MD CHEMISTRY ORDERABLES Performing Organization Address City/State/[place] [address] CERNER MILLENNIUM documented in this encounter Visit Diagnoses Not on filedocumented in this encounter Care Teams Aerospace Medicine Physician Relationship Specialty Start Date End Date Anna Mullen MD PCP - General 12/03/10 [address] [place] [address] documented as of this encounter
--- OUTSIDE RECORDS SUMMARY | 2022-03-13 18:30 | XMS_ITS | Encounter Summary ---
:1965 Author Organization [facility] [place] [address] Care Team Providers Name Role Phone Anna Mullen MD Primary Care Provider Encounter Details Date Type Department Care Team Description 05/23/2014 Telephone Spine Center at [facility] non Erin Asif, [place] [address] Social History Tobacco Use Types Packs/Day Years Used Date Never Smoker Smokeless Tobacco: Never Used Alcohol Use Standard Drinks/Week Comments No 0 (1 standard drink = 0.6 oz pure alcoho l) history of abuse, stopped 1996 Sex Assigned at Date Recorded Male 05/29/2021 11:28 PM EDT documented as of this encounter Miscellaneous Notes Telephone Encounter - Erin Asif RN - 05/23/2014 4:22 PM EDT Entered in error. documented in this encounter Plan of Treatment Not on filedocumented as of this encounter Visit Diagnoses Not on filedocumented in this encounter Care Teams Sanitation Laborer Relationship Specialty Start Date End Date Anna Mullen MD PCP - General 12/03/10 [address] [place] [address] documented as of this encounter
--- OUTSIDE RECORDS SUMMARY | 2022-03-13 18:30 | XMS_ITS | Encounter Summary ---
:1965 Author Organization [facility] [place] [address] Care Team Providers Name Role Phone Meaghan Mullen MD Primary Care Provider Encounter Details Date Type Department Care Team Description 10/24/2014 Hospital Encounter Gastroenterology at [facility] Meaghan Rapp, [facility] [place] [address] [facility] [phone] CENTER GASTROENTEROLOGY DEPT. [place], [place] [address] Social History Tobacco Use Types [...] Sign Reading Time Taken Comments Blood Pressure 128/72 10/24/2014 3:00 PM EST Pulse 79 10/24/2014 3:00 PM EST Temperature - - Respiratory Rate 12 10/24/2014 3:00 PM EST Oxygen Saturation 96% 10/24/2014 3:00 PM EST Inhaled Oxygen Concentration - - Weight - - Height - - Body Mass Index - - documented in this encounter Discharge Instructions Discharge Gwendolyn Villasenor RN - 10/24/2014 3:27 PM EST Colonoscopy What to expect after the procedure You may feel a little more gassy or bloated than usual. This is normal. You should expect the return of normal bowel function in the 2 to 3 days. Activity Because of the sedation that you received your judgement and reaction time are effected ?? Go home and rest quietly for the remainder of the day. You may resume your normal activities tomorrow. ?? Change from one position to the next slowly. You may lose your balance unexpectedly ?? Be careful on stairs, as you may be unsteady on your feet FOR THE NEXT 24 HRS ?? DO NOT DRIVE OR OPERATE ANY MACHINERY ?? DO NOT DRINK ALCOHOLIC BEVERAGES ?? DO NOT SIGN LEGAL DOCUMENTS ?? If you are a smoker: DO NOT SMOKE WHILE YOU ARE ALONE Diet ?? Start by eating small portions of foods that ordinarily will not upset your stomach . Avoid gas producing foods for the next few days ?? Be gentle with what you choose to start with ?? Drink plenty of fluids ( unless your doctor has told you not to). IV SITE-- slight redness, or tenderness is normal. You can use warm compresses if you become concerned. If the tenderness +/or redness increases or foul drainage and a red streak occurs, please contact your PCP immediately When shoud you call for help? Call 911 anytime you think you may need emergency care. For example If you pass out ( loss of consciousness) If you pass maroon or bloody stools If you have severe belly pain Call your doctor now or seek immediate medical care If your stools are black and tarlike If your stools have streaks of blood, but you did not have a biopsy or any polyps removed If you have belly pain, or your belly is swollen and firm If you vomit If you have a fever If you are very dizzy Watch closely for changes in your health, and be sure to contact your doctor if you have any problems Your doctor will let you know when you will need your next colonoscopy. The results of your test andyour risk for colorectal cancer will help your doctor decide how often you need to be checked. [facility] [phone] 8a-5p Same Day Endo [phone] 7a-8p Otherwise contact [phone] and ask to speak to the subsurface augmentee operator examination scorer Follow up care is a du part of your treatment and safety. Be sure to make and go to all appointments, and call your doctor if you are having problems. Discharge instructions reviewed with patient who expresses understanding documented in this encounter Medications at Time [...] times daily. Diabetic Supplies, Fax form to [facility] 100 each 12 06/26/2014 1 10/14/2014 [facility]. [facility] medical for [...] documented as of this encounter Progress Notes Tejas Courtney RN - 10/23/2014 9:34 AM EST ENDOSCOPY PATIENT HISTORY Name: REESE SHUKLA : 1965 Age: 49 y.o. Address: [address] [place] [phone] (home) [phone] (work) Mobile: No relevant phone numbers on file. Referring Provider: Meaghan Mullen Referral Procedure: Colonoscopy - screening Allergies: Allergies Allergen Reactions ??? Nexium [Esomeprazole Magnesium] Diarrhea Any acid reflux medication causes severe diarrhea ??? Prilosec [Omeprazole Magnesium] Diarrhea ??? Reglan [Metoclopramide Hcl] TD ??? Simvastatin Problem list: Patient Active Problem List Diagnosis Code ??? LBP radiating to right leg 724.2 ??? Diabetes mellitus 250.00 ??? Stroke-like symptoms 781.99 ??? Hypertension 401.9 ??? Edema 782.3 ??? Gastroparesis due to DM 250.60, 536.3 ??? Migraine 346.90 ??? Pancreatitis 577.0 ??? Immunosuppression 279.9 ??? Ulnar neuropathy 354.2 ??? Nevus 216.9 ??? Vitiligo 709.01 Past Medical History: Past Medical History Diagnosis Date ??? Severe [...] years old migraaines ??? Nervous system disorder 1976 stroke age [age] ??? Hormone disorder awhile ago thryoid low i think ??? Other ill-defined conditions(799.89) 3 years ago Tardive dyskinesia Past Surgical History: Past Surgical History Procedure Laterality Date ??? Created by interface [email or web address] Procedure Date: 07/18/2009 ??? Created by interface Entered not Verified Procedure Date: 10/24/2010 ??? Upper gi endoscopy, exam 12/31/2011 UPPER GI ENDOSCOPY performed by CLAYTON BHAKTA at [facility] ENDOSCOPY ??? Upper gi endoscopy, biopsy 12/31/2011 UPPER GASTROINTESTINAL ENDOSCOPY,WITH BIOPSY SINGLE OR MULTIPLE performed by CLAYTON BHAKTA at [facility] ENDOSCOPY ??? Shoulder surgery ??? Carpal tunnel release ??? Appendectomy ??? Musculoskeletal surgery unlisted 10 years carpel tunnel ??? 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 Transplant allograft pancreas 08/28/2013 @PANCREATIC TRANSPLANT performed by Iraj Keller MD at [facility] MAIN OR ??? Transplant, prep donor pancreas 08/28/2013 @PREPARATION CADAVERIC PANCREAS, STANDARD performed by Iraj Keller MD at [facility] MAIN OR Medications: Prior to Admission medications Medication Sig Start Date End Date Taking? Authorizing Provider ondansetron (ZOFRAN) 4 mg Tablet TAKE 1 TABLET BY MOUTH EVERY 8 HOURS NEEDED FOR NAUSEA 10/10/14 Eriberto Melgar MD sulfamethoxazole-trimethoprim (BACTRIM DS) 800-160 mg Tablet TAKE ONE TABLET BY MOUTH EVERY DAY DIRECTED 09/08/14 Eriberto Melgar MD pantoprazole (PROTONIX) 40 mg Tablet, Delayed Release (E.C.) TAKE ONE TABLET BY MOUTH EVERY DAY 09/08/14 Eriberto Melgar MD CELLCEPT 250 mg Capsule Take 2 capsules by mouth 2 times daily. 07/31/14 Kj Alexandra MD Diabetic Supplies, [facility]. [facility] Fax form to [facility] medical for testing supplies 4 times per day 06/26/14 Divya Coles MD traZODone (DESYREL) 50 mg Tablet Take 1 tablet by mouth nightly. 06/14/14 06/14/15 Eriberto Melgar MD tacrolimus (PROGRAF) 1 mg Capsule Take 2 capsules by mouth 2 times daily. 06/07/14 Haresh Melgar MD aspirin 81 mg Tablet, Chewable Take 81 mg by mouth daily. Provider, Historical lisinopril (PRINIVIL;ZESTRIL) 20 mg Tablet Take 20 mg by mouth daily. Provider, Historical levothyroxine (SYNTHROID) 175 mcg tablet Take 175 mcg by mouth daily. Provider, Historical Blood Sugar Diagnostic (ONE TOUCH ULTRA TEST) test strip Use To check BG four times daily. Dx. 250.12/02/13 Eriberto Melgar MD Magnesium Gluconate 27 mg (500 mg) Tab Take 1 tablet by mouth daily. Provider, Historical traMADol (ULTRAM) 50 mg tablet Take 100 mg by mouth 2 times daily. 07/08/13 Provider, Historical acetaminophen (TYLENOL) 325 mg tablet Take 2 [...] tablet Take 40 mg by mouth daily. 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 LBP radiating to right leg 724.2 ??? Diabetes mellitus 250.00 ??? Stroke-like symptoms 781.99 ??? Hypertension 401.9 ??? Edema 782.3 ??? Gastroparesis due to DM 250.60, 536.3 ??? Migraine 346.90 ??? Pancreatitis 577.0 ??? Immunosuppression 279.9 ??? Ulnar neuropathy 354.2 ??? Nevus 216.9 ??? Vitiligo 709.01 Asa ii mallamapti ii Sedation plan iv conscious sedation EXAM: HEENT: Airway examined, oropharynx clear LUNGS: Clear to auscultation HEART: Regular rate and rhythm, normal S1, S2 ABDOMEN: Normal bowel sounds, soft, non tender, non distended, A/P 49 y.o. male here for Colonoscopy Proceed with the planned endoscopic procedure. Risks and benefits of the procedure explained to the patient. Consent signed. documented in this encounter Miscellaneous Notes Op Note - Meaghan Rapp MD - 10/25/2014 7:45 PM EST [facility] Operative Note Patient Name: Reese Shukla : [id number] See Provation procedure note. Meaghan Rapp MD 10/25/2014 documented in this encounter Plan of Treatment Not on filedocumented as of this encounter Procedures Procedure Name Priority Date/Time Associated Comments Diagnosis SURGICAL PATHOLOGY Routine 10/24/2014 3:01 PM Res ults for this REPORT EST procedure are i n the results section. SPECIMEN TO PATHOLOGY Routine 10/24/2014 3:01 PM Results for this EST procedure are i n the results section. COLONOSCOPY, 10/24/2014 2:19 PM screening DIAGNOSTIC EST COLONOSCOPY Routine 10/24/2014 2:12 PM Results f or this EST procedure are i n the results section. documented in this encounter Results Surgical Pathology Report (10/24/2014 3:01 PM EST) Patholo gist Method Time Signature Surgical CERNER Pathology ? [facility] Report ? Provider: ?? MEAGHAN RAPP ?Pt. Name: ?? RAPHAEL CAMACHO, REESE Guillen ? Acc #: ?[id number] ?Pt. MRN: ?[id number] ? Col Date: ?? 5 ? /Sex: ?1965,(49 years),Male ? Rec Date: ?? 10/24/2014 ? LOC: ?4T ? SURGICAL PATHOLOGY ? ---Pathologic Diagnosis--- ? Sigmoid colon, biopsy: ? Colonic mucosa, negative for diagnostic abnorma lity. ? CR-0, CR-PX ? 10/25/14 ? DLD ? 10/25/14 Verified by: ? Mg Yanez MD ? Pathologist ? (Electronic Si gnature) ? The attending pathologist whose signature appears o n this report has ? reviewed all diagnostic slides and has edited the gallito ss and/or ? microscopic portion of the report in rendering the fi nal pathologic ? diagnosis. ? ---Gross Description--- ? A - Labeled/Fixative: Sigmoid, formalin. ? Quantity/Size: Seven, 0.2-0.4 cm. ? Tissue Description: Soft, yellow-ramos tissue. ? Sections/Processing: (T2) ??ejr ? ---Clinical Information--- ? Specimen Submitted: ? A - Sigmoid ? Clinical History: ? On immunosuppression, small brown pitting of colonic mucosa ? Clinical Diagnosis: ? Same Specimen (Source) Anatomical Collection Method Collection Time Re ceived Time Location / / Volume Laterality 10/24/2014 3:01 PM EST Meaghan Rapp MD PATHOLOGY/CYTOLOGY ORDERABLE S Performing Organization Address City/State/[place] [address] CERNER MILLENNIUM Specimen to Pathology (surgical or derm) (10/24/2014 3:01 PM EST) Specimen Anatomical Collection Method Collection Time Receive d Time (Source) Location / / Volume Laterality AP Specimen 10/24/2014 3:01 PM 5 3:01 EST PM EST Narrative CERNER MILLENNIUM - 10/24/2014 3:[address] Specimen requisition ordered. ??Separate Pathology report to follow Meaghan Rapp MD PATHOLOGY/CYTOLOGY ORDERABLE S Performing Organization Address City/[facility]/[place] [address] CERNER MILLENNIUM COLONOSCOPY (10/24/2014 2:12 PM EST) Component Value Ref Test Analysis Performed At [facility] Range Method Time Signature COLONOSCOPY [facility] Endoscopy Patient Name: Reese Shukla ? Procedure Date: 10/24/2014 2:12 PM ? Date of : 1965 ? Age: 49 ? Order #: [id number] ? Procedure: ? Colonoscopy Indications: ? personal history of polyps, diarr hea Providers: ? Meaghan Rapp MD, Rajat Zamora, ? RN, Yesica Mayo, Billet Grinder Referring MD: ?Meaghan Mullen MD Medicines: ? Fentanyl 250 micrograms IV, Midazo real ? 5 mg IV, Diphenhydramine 50 m g IV Complications: ? No immediate complications. Procedure: ? [...] and informed consent was obta ined. ? - Patient identification and proposed ? procedure were verified prior to the ? procedure by the physician. Layla mccloud ? procedure was verified in the ? pre-procedure area. ? - Pre-procedure physical exam ination ? revealed no contraindications to ? sedation. ? - ASA Grade Assessment: II - A ? patient with mild systemic di sease. ? - After reviewing the risks a nd ? benefits, the patient was mathieu med in ? satisfactory condition to und ergo the ? procedure. ? - The anesthesia plan was to use ? moderate sedation/analgesia ? (conscious sedation). ? The procedure, indications, b enefits, ? risks and alternatives were e xplained ? to the patient. Specifically ? discussed were potential ? complications including, but not ? limited to, bleeding, perfora tion, ? infection, missing a cancer, and ? adverse medication reactions. The ? patient was placed in the lef t ? lateral decubitus position, a nd a ? digital rectal exam was perfo rmed. ? The Colonoscope was inserted in the ? anus and under direct visuali zation, ? advanced to the terminal ileu m. ? Careful inspection was made a s the ? colonoscope was withdrawn. Th e ? colonoscopy was performed wit h jourdan. ? The patient tolerated the pro cedure ? well. The quality of the aguila l ? preparation was fair. ? Findings: ? The perianal and digital rectal examinations were ? normal. ? The terminal ileum appeared normal. ? A moderate amount of semi-solid stool was found at ? the hepatic flexure, in the ascending colon, in the ? cecum and at the appendiceal orifice, making ? visualization difficult. Area irrigated throughout. ? There was diffuse pitting of the colonic mucosa, ? which was biopised with a cold forceps. ? Impression: ?- The examined portion of the ileu m ? was normal. ? - Stool at the hepatic flexur e, in ? the ascending colon, in the c ecum and ? at the appendiceal orifice. ? - Diffuse pitting of the colo emma ? mucosa, biopsied with cold fo rceps ? -this may be related to prep artifact. ? - No specimens collected. Recommendation: ?- Discharge patient to home. ? - 3 Year colonoscopy @ age 52 (fair ? prep today) ? - Follow up pathology results . ? Attending Participation: ? I personally performed the entire procedure. ? Meaghan Rapp MD 10/24/2014 3:26 PM Number of Addenda: 0 Note Initiated On: 10/24/2014 2:12 PM Specimen (Source) Anatomical Collection Method Collection Time Re ceived Time Location / / Volume Laterality 10/24/2014 2:12 PM EST Meaghan Mullen MD GENERAL SURGICAL ORDERABLES Performing Organization Address City/State/ZIP Code Phon e Number [facility] documented in this encounter Visit Diagnoses Not on filedocumented in this encounter Active and Recently Administered Medications Times are shown in EST. PRN Medication Order 10/22/2014 10/23/2014 10/24/2014 diphenhydrAMINE (BENADRYL) injection (CANCELED) 1425 (Given - Provider: Rajat Zamora RN)1429 (Given - Provider: Rajat Zamora RN) ONCE PRN, Starting 10/24/14 at 1425, Until Tu10/24/14 at 1610, Intra- Operative (Intra-Procedure), Routine fentaNYL 50 mcg/mL multi-dose injection (CANCELED) 1425 (Given - Provider: Rajat Zamora RN)1429 (Given - Provider: Rajat Zamora RN)1432 (Given - Provider: Rajat Zamora RN)1437 (Given - Provider: Rajat Zamora RN)1442 (Given - Provider: Rajat Zamora RN) ONCE PRN, Starting 10/24/14 at 1425, Until Tu10/24/14 at 1610, Intra- Operative (Intra-Procedure), Routine midazolam (PF) (VERSED) 1 mg/mL multi-dose injection (CANCELED) 1425 (Given - Provider: Rajat Zamora RN)1429 (Given - Provider: Rajat Zamora RN)1432 (Given - Provider: Rajat Zamora RN)1437 (Given - Provider: Rajat Zamora RN)1442 (Given - Provider: Rajat Zamora RN) ONCE PRN, Starting 10/24/14 at 1425, Until Tu10/24/14 at 1610, Intra- Operative (Intra-Procedure), Routine documented in this encounter Care Teams Epic Cadence Specialists Relationship Specialty Start Date End Date Meaghan Mullen MD PCP - General 12/03/10 [address] [place] [address] documented as of this encounter
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
--- OUTSIDE RECORDS SUMMARY | 2022-03-13 18:30 | XMS_ITS | Encounter Summary ---
:1965 Author Organization [facility] [place] [address] Care Team Providers Name Role Phone Anna Mullen MD Primary Care Provider Reason for Visit Reason Onset Date Comments Medication Refill 06/26/2014 Encounter Details Date Type Department Care Team Description 06/26/2014 Refill Endocrinology at [facility] Divya Hermosillo MD [facility] [place] [address] ENDOCRINOLOGY DEPT. [phone] [place], [place] [address] (Wo rk) Social History Tobacco [...] on filedocumented in this encounter Care Teams Machine Maintenance Repairer Relationship Specialty Start Date End Date Anna Mullen MD PCP - General 12/03/10 [address] [place], [place] [address] documented as of this encounter
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
--- OUTSIDE RECORDS SUMMARY | 2022-03-13 18:30 | XMS_ITS | Encounter Summary ---
:1965 Author Organization [facility] [place] [address] Care Team Providers Name Role Phone Anna Mullen MD Primary Care Provider Encounter Details Date Type Department Care Team Description 04/29/2014 Hospital Encounter Laboratory [facility] [place] [address] TRANSPLANT SURGE [place], [place] [address] (Wo rk) Social History Tobacco [...] 6 09/14/2012 mg tablet Dx code :250.60 Diabetic Supplies, Fax form to [facility] 100 each 12 05/10/2014 1 [facility]. [facility] testing supplies 10 times per day levothyroxine TAKE ONE TABLET BY 90 tablet 3 04/19/201408/2013 (SYNTHROID) 200 mcg MOUTH EVERY DAY tablet levothyroxine Take 150 mcg by mouth 0 [...] Take 2 tablets by 50 tablet 0 11/201304/30/2014 2 mg tablet mouth every 4 hours [...] 38.5 Centigrade). Diabetic Supplies, Fax form to [facility] 100 each 12 09/02/2013 0 05/10/2014 [facility]ellan. [facility] testing supplies 10 times per day citalopram (CELEXA) 20 Take 40 mg by mouth 0 08/06/2016 mg tablet daily. aspirin 325 mg tablet Take 325 mg by mouth 0 05/31/2014 daily. documented as of this encounter Plan of Treatment Not on filedocumented as of this encounter Procedures Procedure Name Priority Date/Time Associated Diagnosis Comme nts TACROLIMUS LEVEL Routine 04/29/2014 9:25 AM Resul ts for this EDT procedure are i n the results section. documented in this encounter Results Tacrolimus level (04/29/2014 9:25 AM EDT) P athologist Signature Tacrolimus Lvl 11.2 ng/mL CERNER MILLENNIUM Comment: Trough therapeutic: 5-15 ng/mL Specimen Anatomical Collection Method Collection Time Receive d Time (Source) Location / / Volume Laterality Blood specimen 04/29/2014 9:25 AM 014 8:28 (specimen) EDT AM EDT Resulting Agency Comment Spec In Lab Eriberto Melgar MD CHEMISTRY ORDERABLES Performing Organization Address City/State/[place] [address] CERNER MILLENNIUM documented in this encounter Visit Diagnoses Not on filedocumented in this encounter Care Teams Drag Out Worker Relationship Specialty Start Date End Date Anna Mullen MD PCP - General 12/03/10 [address] [place] [address] documented as of this encounter
--- OUTSIDE RECORDS SUMMARY | 2022-03-13 18:30 | XMS_ITS | Encounter Summary ---
:1965 Author Organization [facility] [place] [address] Care Team Providers Name Role Phone Anna Mullen MD Primary Care Provider Reason for Visit Reason Comments Medication Refill Encounter Details Date Type Department Care Team Description 04/19/2014 Refill Endocrinology at [facility] Divya Hermosillo MD [facility] [place] [address] ENDOCRINOLOGY DEPT. [phone] [place], [place] [address] (Wo rk) Social History Tobacco [...] filedocumented in this encounter Care Teams Watch Hairspring Assembler Relationship Specialty Start Date End Date Anna Mullen MD PCP - General 12/03/10 [address] [place], [place] [address] documented as of this encounter
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
--- OUTSIDE RECORDS SUMMARY | 2022-03-13 18:30 | XMS_ITS | Encounter Summary ---
:1965 Author Organization [facility] [place] [address] Care Team Providers Name Role Phone Anna Mullen MD Primary Care Provider Reason for Visit Reason Comments Medication Refill Encounter Details Date Type Department Care Team Description 07/30/2014 Refill Solid Organ Transplant at Kj Odell MD [facility] [place] [address] [place] [address] [phone] (Wo rk) Social History Tobacco Use Types [...] on filedocumented in this encounter Care Teams Keno Clerk Relationship Specialty Start Date End Date Anna Mlulen MD PCP - General 12/03/10 [address] [place], [place] [address] documented as of this encounter
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
--- OUTSIDE RECORDS SUMMARY | 2022-03-13 18:30 | XMS_ITS | Encounter Summary ---
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 MILLENNIUM Differential, Automated (08/16/2014 9:02 AM EST) P athologist Signature Neutrophils % 43.8 % CERNER MILLENNIUM Neutr Abs (ANC) 1.91 1.50 - CERNER 6.30 MILLENNIUM x10(3)/mcL Lymphocytes % 47.0 % CERNER MILLENNIUM Lymphocytes Abs 2.0 1.0 - 3.6 CERNER x10(3)/mcL MILLENNIUM Monocytes % 6.2 % CERNER MILLENNIUM Monocyte Abs 0.3 0.2 - 1.0 CERNER x10(3)/mcL MILLENNIUM Eosinophils % 2.3 % CERNER MILLENNIUM Eosinophils Abs 0.1 0.0 [...] Location / / Volume Laterality Blood specimen 08/16/2014 9:02 AM 014 9:08 (specimen) EST AM EST Resulting Agency Comment Spec In Lab Eriberto Melgar MD HEMATOLOGY ORDERABLES Performing Organization Address City/State/[place] [address] CERNER MILLENNIUM (ABNORMAL) Hemogram (08/16/2014 9:02 AM EST) P athologist Signature WBC 4.4 4.0 - 10.0 CERNER x10(3)/mcL MILLENNIUM RBC 4.13 (L) 4.63 - CERNER 6.08 MILLENNIUM x10(6)/mcL Hemoglobin 12.6 (L) 13.7 - CERNER 17.5 gm/dL MILLENNIUM Hematocrit 36.3 (L) 40.0 - CERNER 51.0 % MILLENNIUM MCV 87.9 79.0 - CERNER 92.0 fL MILLENNIUM MCH 30.5 25.6 - CERNER 32.2 pg MILLENNIUM MCHC 34.7 32.0 - CERNER 36.5 gm/dL MILLENNIUM Platelets 211 145 - 370 CERNER x10(3)/mcL MILLENNIUM RDWSD 42.4 35.0 - CERNER 46.0 fL [facility] RDWCV 13.1 10.9 - CERNER 14.4 % [facility] MPV 10.1 9.0 - 12.0 [facility] Specimen Anatomical Collection Method Collection Time Receive d Time (Source) Location / / Volume Laterality Blood specimen 08/16/2014 9:02 AM 014 9:08 (specimen) EST AM EST Resulting Agency Comment Spec In Lab Eriberto Melgar MD HEMATOLOGY ORDERABLES Performing Organization Address City/State/[place] [address] [facility] Lavender Tube HOLD (08/16/2014 9:02 AM EST) Patholo gist Method Time Signature Lavender Hold Sample in [facility] lab. [facility] Specimen Anatomical Collection Method Collection Time Receive d Time (Source) Location / / Volume Laterality Blood specimen 08/16/2014 9:02 AM 014 9:08 (specimen) EST AM EST Eriberto Melgar MD HEMATOLOGY ORDERABLES Performing Organization Address City/State/ZIP Code Phon e Number [address] [facility] Gold Tube HOLD (08/16/2014 9:02 AM EST) P athologist Signature Gold Hold Sample in [facility] lab. [facility] Specimen Anatomical Collection Method Collection Time Receive d Time (Source) Location / / Volume Laterality Blood specimen 08/16/2014 9:02 AM 9:08 (specimen) EST AM EST Eriberto Melgar MD CHEMISTRY ORDERABLES Performing Organization Address City/State/[place] [address] [facility] (ABNORMAL) VIT D Total Evaluation (08/16/2014 9:02 AM EST) P athologist Signature 25-OH Vit D 25 (L) 30 - [address] [facility] Total ng/mL [facility] Comment: Deficient <10 ng/mL Insufficient 10 to 29 ng/mL Sufficient 30 to 100 ng/mL Potential Intoxication >100 ng/mL According to the [place] National Osteoporosi s Foundation, Vitamin D concentrations >30 ng/mL are sufficient to protect bone health. ??The National Kidney Foundation has similarly stated that pat ients with Vitamin D concentrations <30ng/mL should be considered to be insu fficient or deficient. http://Local Market Launch/DHnatlkidneyfoundat ion http://Local Market Launch/DHMCVitD The [employer] Vitamin D Immunoassay detec ts both 25-OH Vitamin D2 and 25-OH Vitamin D3, but only a total Vitamin D c oncentration is reported. Specimen Anatomical Collection Method Collection Time Receive d Time (Source) Location / / Volume Laterality Blood specimen 08/16/2014 9:02 AM 014 9:08 (specimen) EST AM EST Resulting Agency Comment Spec In Lab Eriberto Melgar MD CHEMISTRY ORDERABLES Performing Organization Address City/[facility]/ZIP Code Phon e Number [address] CERNER MILLENNIUM 1,25-dihydroxycholecalciferol (08/16/2014 9:02 AM EST) P athologist Signature Vit D 1,25 46 18 - 64 CERNER pg/mL MILLENNIUM Comment: Test Performed by: [place] [address] Cloth Examiner Machine: Bruce Moore Specimen Anatomical Collection Method Collection Time Receive d Time (Source) Location / / Volume Laterality Blood specimen 08/16/2014 9:02 AM 014 (specimen) EST 11:22 AM EST Resulting Agency Comment Spec In Lab Eriberto Melgar MD CHEMISTRY ORDERABLES Performing Organization Address City/[facility]/ZIP Code Phon e Number [address] CERNER MILLENNIUM (ABNORMAL) PTH (08/16/2014 9:02 AM EST) P athologist Signature PTH 124 (H) 15 - 65 CERNER pg/mL MILLENNIUM Specimen Anatomical Collection Method Collection Time Receive d Time (Source) Location / / Volume Laterality Blood specimen 08/16/2014 9:02 AM 014 9:08 (specimen) EST AM EST Resulting Agency Comment Spec In Lab Eriberto Melgar MD CHEMISTRY ORDERABLES Performing Organization Address City/[facility]/[place] [address] CERNER MILLENNIUM Lipase (08/16/2014 9:02 AM EST) P athologist Signature Lipase 20 0 - 60 CERNER unit/L MILLENNIUM Specimen Anatomical Collection Method Collection Time Receive d Time (Source) Location / / Volume Laterality Blood specimen 08/16/2014 9:02 AM 014 9:08 (specimen) EST AM EST Resulting Agency Comment Spec In Lab Eriberto Melgar MD CHEMISTRY ORDERABLES Performing Organization Address City/[facility]/ZIP Code Phon e Number [address] CERNER MILLENNIUM Amylase (08/16/2014 9:02 AM EST) P athologist Signature Amylase 60 28 - 100 CERNER unit/L MILLENNIUM Specimen Anatomical Collection Method Collection Time Receive d Time (Source) Location / / Volume Laterality Blood specimen 08/16/2014 9:02 AM 014 9:08 (specimen) EST AM EST Resulting Agency Comment Spec In Lab Eriberto Melgar MD CHEMISTRY ORDERABLES Performing Organization Address City/[facility]/ZIP Code Phon e Number [address] CERNER MILLENNIUM Tacrolimus level (08/16/2014 9:02 AM EST) P athologist Signature Tacrolimus Lvl 6.9 ng/mL CERNER MILLENNIUM Comment: Trough therapeutic: 5-15 ng/mL Specimen Anatomical Collection Method Collection Time Receive d Time (Source) Location / / Volume Laterality Blood specimen 08/16/2014 9:02 AM 014 (specimen) EST 11:47 AM EST Resulting Agency Comment Spec In Lab Eriberto Melgar MD CHEMISTRY ORDERABLES Performing Organization Address City/[facility]/[place] [address] CERNER MILLENNIUM Uric acid (08/16/2014 9:02 AM EST) athologist Signature Uric Acid 5.2 3.5 - 8.5 CERNER mg/dL [facility] Specimen Anatomical Collection Method Collection Time Receive d Time (Source) Location / / Volume Laterality Blood specimen 08/16/2014 9:02 AM 014 9:08 (specimen) EST AM EST Resulting Agency Comment Spec In Lab Eriebrto Melgar MD CHEMISTRY ORDERABLES Performing Organization Address City/[facility]/ZIP Code Phon e Number [address] [facility] MILLENNIUM Phosphorus (08/16/2014 9:02 AM EST) athologist Signature Phosphorus 3.0 2.5 - 4.5 CERNER mg/dL [facility] Specimen Anatomical Collection Method Collection Time Receive d Time (Source) Location / / Volume Laterality Blood specimen 08/16/2014 9:02 AM 014 9:08 (specimen) EST AM EST Resulting Agency Comment Spec In Lab Eriberto Melgar MD CHEMISTRY ORDERABLES Performing Organization Address City/[facility]/ZIP Code Phon e Number [address] [facility] MILLENNIUM (ABNORMAL) Magnesium (08/16/2014 9:02 AM EST) athologist Signature Magnesium 0.64 (L) 0.69 - 1.07 CERNER mmol/L [facility] Specimen Anatomical Collection Method Collection Time Receive d Time (Source) Location / / Volume Laterality Blood specimen 08/16/2014 9:02 AM 014 9:08 (specimen) EST AM EST Resulting Agency Comment Spec In Lab Eriberto Melgar MD CHEMISTRY ORDERABLES Performing Organization Address City/[facility]/ZIP Code Phon e Number [address] CERNER MILLENNIUM Reticulocyte Count (08/16/2014 9:02 AM EST) athologist Signature Retic Ct % 1.0 0.5 - 2.4 CERNER % MILLENNIUM Retic Ct Abs 0.040 0.027 - CERNER 0.095 MILLENNIUM x10(6)/mcL Immature Retic% 3.7 2.3 - 15.9 CERNER % MILLENNIUM Reticulated Hgb 33.5 28.5 - CERNER 38.9 pg MILLENNIUM Plat Immature % 3.8 0.0 - 7.4 CERNER % MILLENNIUM Specimen Anatomical Collection Method Collection Time Receive d Time (Source) Location / / Volume Laterality Blood specimen 08/16/2014 9:02 AM 014 9:08 (specimen) EST AM EST Resulting Agency Comment Spec In Lab Eriberto Melgar MD HEMATOLOGY ORDERABLES Performing Organization Address City/State/[place] [address] CERNER MILLENNIUM Lipid panel (fasting) (08/16/2014 9:02 AM EST) P athologist Signature Chol, Total 123 <=199 mg/dL CERNER MILLENNIUM Comment: Recommendations of the NCEP Adult Treatm ent Panel for the following risk cutoff thresholds for the [place] populatio n: Desirable: <200 mg/dL Borderline High: 200-239 mg/dL High: > or = 240 mg/dL Triglycerides 106 <=149 mg/dL CERNER MILLENN [facility] Comment: Reference Range: Normal triglycerides: ??<150 mg/dL Borderline high: ??150-199 mg/dL High: ??200-499 mg/dL Very high: ??>ln=156 mg/dL MARQUEZ 2001; 285(19):5510-1731 HDL 43 >=40 mg/dL CERNER MILLENNIUM Comment: Reference range: ??Low HDL: ?? < 40 mg/dL ??Normal: ?40-60 mg/dL ??Desirable: > 60 mg/dL MARQUEZ 2001; 285(19):4389-2544 LDL Cholesterol 59 <=99 mg/dL FARNAZ ENGLISH Comment: Reference range: ?? Optimal: ?<100 mg/dL ?? Near Optimal/Above Optimal: ?? 100-1 29 mg/dL ?? Borderline high: ?130-159 mg/dL ?? High: ? 160-189 mg/dL ?? Very high: ?>zr=265 mg/dL MARQUEZ 2001: 285(19):5100-9045 Chol/HDL Ratio 2.9 ratio FARNAZ STEELE UM Comment: A Cholesterol to HDL ratio below 4:1 is desirable. ??Studies suggest that increased CAD risk occurs at ratios abov e 5 for females and above 6 for men. ? [place] [employer] Association ??(htt p://www.americanheart.org) ? Joy Int Med, 1994; 121:641 ? AM J Med, 1998; 105(1A):48S Specimen Anatomical Collection Method Collection Time Receive d Time (Source) Location / / Volume Laterality Blood specimen 08/16/2014 9:02 AM 014 9:08 (specimen) EST AM EST Resulting Agency Comment Spec In Lab Eriberto Melgar MD CHEMISTRY ORDERABLES Performing Organization Address City/State/[place] [address] FARNAZ SWENSON (ABNORMAL) CMP w/fasting Glucose (08/16/2014 9:02 AM EST) athologist Signature Glucose 105 (H) 65 - 99 [facility] Fasting mg/dL [facility] Comment: ?Fasting* Glucose Interpretive C riteria Normal ?65-99 mg/dL Impaired Fasting glucose ?100-125 mg/dL Consistent with Diabetes Mellitus ? >or= 126 mg/dL *Fasting is defined as no caloric intake for at least 8 hours In the absence of unequivocal hypergly cemia a plasma glucose value of >or= 126 mg/dL should be repeated on a subseq day. Diagnosis and Classification of Diabetes Mellitus, Position Statement from the [place] [employer]. ??Diabete s Care, Volume 33, Supplement 1, Aug 2009 BUN 10 10 - 20 mg/dL CERNER MILLENNIU M Creatinine 0.94 0.80 - 1.50 mg/dL CERNER MILL ENNIUM Comment: Please note that the pediatric reference intervals supplied above were not validated at [facility]. Results from pediatri c patients should be interpreted in conjunction to the patient's age, height and muscle mass. Sodium 139 135 - 145 mmol/L CERNER LALA NIUM Potassium 4.4 3.5 - 5.0 mmol/L CERNER LALA NIUM Comment: Please note: ??Patients with WBC >100,00 0 may have falsely elevated Potassium levels. ??For accurate Potassium quantif ication in these patients send serum separator tube (gold top) for subsequent determinations. ??Contact the Clinical Chemistry Laboratory if there are any qu estions. Chloride 101 98 - 107 mmol/L CERNER MILLENN IUM CO2 26 22 - 31 mmol/L CERNER MILLENNI UM Anion Gap 12 5 - 15 mmol/L CERNER MILLENNIU M Calcium 9.4 8.5 - 10.5 mg/dL CERNER LALA NIUM Total Protein 6.8 6.4 - 8.3 gm/dL CERNER MIL LENNIUM Albumin 4.5 3.2 - 5.2 gm/dL CERNER MILLENN IUM AST 28 0 - 39 unit/L CERNER MILLENNIU M ALT 37 0 - 55 unit/L CERNER MILLENNIU M Alk Phos 108 40 - 120 unit/L CERNER MILLENN IUM Total Bilirubin 0.6 0.2 - 1.3 mg/dL CERNER M ILLENNIUM [...] the following links into your internet browser. http://Local Market Launch/DHnkdep http://SiSense.sarvaMAIL/DHMCnkf Specimen Anatomical Collection Method Collection Time Receive d Time (Source) Location / / Volume Laterality Blood specimen 08/16/2014 9:02 AM 014 9:08 (specimen) EST AM EST Resulting Agency Comment Spec In Lab Eriberto Melgar MD CHEMISTRY ORDERABLES Performing Organization Address City/[facility]/ZIP Code Phon e Number [address] CERNER MILLENNIUM U24 Hrs and Volume (08/16/2014 5:41 AM EST) P athologist Signature Hours 24 hour(s) CERNER Collected MILLENNIUM Urine TV (ml) 4,100 mL CERNER MILLENNIUM Specimen Anatomical Collection Method Collection Time Receive d Time (Source) Location / / Volume Laterality Urine specimen 08/16/2014 5:41 AM 014 9:48 (specimen) EST AM EST Resulting Agency Comment Spec In Lab Eriberto Melgar MD CHEMISTRY ORDERABLES Performing Organization Address City/[facility]/ZIP Code Phon e Number [address] CERNER MILLENNIUM Uric acid, urine, 24 hour (08/16/2014 5:41 AM EST) P athologist Signature U24 Uric Conc 10.9 mg/dL CERNER MILLENNIUM U24 Uric Calc 0.45 0.25 - CERNER 0.80 MILLENNIUM gm/24hr Specimen Anatomical Collection Method Collection Time Receive d Time (Source) Location / / Volume Laterality Urine specimen 08/16/2014 5:41 AM 014 9:48 (specimen) EST AM EST Resulting Agency Comment Spec In Lab Eriberto Melgar MD URINE ORDERABLES Performing Organization Address City/[facility]/ZIP Code Phon e Number [address] CERNER MILLENNIUM Phosphorus, urine, 24 hour (08/16/2014 5:41 AM EST) P athologist Signature U24 Phos Conc 20.9 mg/dL CERNER MILLENNIUM U24 Phos Calc 0.9 0.4 - 1.3 CERNER gm/24hr MILLENNIUM Specimen Anatomical Collection Method Collection Time Receive d Time (Source) Location / / Volume Laterality Urine specimen 08/16/2014 5:41 AM 014 9:48 (specimen) EST AM EST Resulting Agency Comment Spec In Lab Eriberto Melgar MD URINE ORDERABLES Performing Organization Address City/State/ZIP Code Phon e Number [address] CERNER MILLENNIUM Calcium, urine, 24 hour (08/16/2014 5:41 AM EST) P athologist Signature U24 Ca Conc 2.0 mg/dL CERNER MILLENNIUM U24 Ca Calc 82.0 50.0 - CERNER 300.0 MILLENNIUM mg/24hr Comment: Reference Range: 50.0-300.0 mg/ 24 hour based on diet. Specimen Anatomical Collection Method Collection Time Receive d Time (Source) Location / / Volume Laterality Urine specimen 08/16/2014 5:41 AM 014 9:48 (specimen) EST AM EST Resulting Agency Comment Spec In Lab Eriberto Melgar MD URINE ORDERABLES Performing Organization Address City/[facility]/ZIP Code Phon e Number [address] CERNER MILLENNIUM (ABNORMAL) Creatinine Clearance, urine, 24 hour (08/16/2014 5:41 AM EST) Analysis Performed At Patho logist Time Signature Creat 148 (H) 90 - 139 CERNER Clearance mL/min MILLENNIUM U24 Creat Conc 49 mg/dL CERNER MILLENNIUM U24 Creat Calc 2.01 (H) 0.80 - CERNER 1.90 MILLENNIUM gm/24hr Specimen Anatomical Collection Method Collection Time Receive d Time (Source) Location / / Volume Laterality Urine specimen 08/16/2014 5:41 AM 014 9:48 (specimen) EST AM EST Resulting Agency Comment Spec In Lab Eriberto Melgar MD URINE ORDERABLES Performing Organization Address City/State/ZIP Code Phon e Number [address] CERNER MILLENNIUM (ABNORMAL) Creatinine, urine, 24 hour (08/16/2014 5:41 AM EST) Analysis Performed At Patho logist Time Signature U24 Creat Conc 49 mg/dL [facility]ER [facility] U24 Creat Calc 2.01 (H) 0.80 - CERNER 1.90 MILLENNIUM gm/24hr Specimen Anatomical Collection Method Collection Time Receive d Time (Source) Location / / Volume Laterality Urine specimen 08/16/2014 5:41 AM 014 9:48 (specimen) EST AM EST Resulting Agency Comment Spec In Lab Eriberto Melgar MD URINE ORDERABLES Performing Organization Address City/State/ZIP Code Phon e Number [address] [facility] ([facility]NORMAL[facility] Protein, urine, 24 hour (08/16/2014 5:41 AM EST) Patholo gist Method Time Signature U24 Prot Conc <6 <=80 mg/dL [facility] U24 Prot Calc <0.25 (H) <=0.15 CERNER gm/24hr MILLENNIUM Specimen Anatomical Collection Method Collection Time Receive d Time (Source) Location / / Volume Laterality Urine specimen 08/16/2014 5:41 AM 014 9:48 (specimen) EST AM EST Resulting Agency Comment Spec In Lab Eriberto Melgar MD URINE ORDERABLES Performing Organization Address City/State/ZIP Code Phon e Number [address] 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
--- OUTSIDE RECORDS SUMMARY | 2022-03-13 18:30 | XMS_ITS | Encounter Summary ---
:1965 Author Organization [facility] [place] [address] Care Team Providers Name Role Phone Anna Mullen MD Primary Care Provider Encounter Details Date Type Department Care Team Description 11/01/2014 Hospital Encounter Laboratory [facility]ia [facility] [place] [address] TRANSPL[employer] SUR[employer] [place], [place] [address] (Wo rk) Social History Tobacco [...] times daily. Diabetic Supplies, Fax form to [facility] 100 each 12 06/26/2014 1 10/14/2014 Daylifecellan. [facility] [place] [place] medical for testing supplies 4 times per [...] Diagnosis Comme nts LAVENDER TUBE HOLD Routine 11/01/2014 7:45 AM Res ults for this EST procedure are i n the results section. TACROLIMUS LEVEL Routine 11/01/2014 7:45 AM Resul ts for this EST procedure are i n the results section. documented in this encounter Results Lavender Tube HOLD (11/01/2014 7:45 AM EST) Patholo gist Method Time Signature Lavender Hold Sample in CERNER lab. MILLENNIUM Specimen Anatomical Collection Method Collection Time Receive d Time (Source) Location / / Volume Laterality Blood specimen Venous Draw / 11/01/2014 7:45 AM 2014 8:50 (specimen) Unknown EST PM EST Eriberto Melgar MD HEMATOLOGY ORDERABLES Performing Organization Address City/[facility]/ZIP [place] [address] [facility] Tacrolimus level (11/01/2014 7:45 AM EST) P athologist Signature Tacrolimus Lvl 13.1 ng/mL [facility] [employer]ov[employer] IT SolutionsREUNION RE[facility]ABIL[facility] PEORIAIUM Comment: Trough therapeutic: 5-15 ng/mL Specimen Anatomical Collection Method Collection Time Receive d Time (Source) Location / / Volume Laterality Blood specimen Venous Draw / 11/01/2014 7:45 AM 2014 7:52 (specimen) Unknown EST AM EST Resulting Agency Comment Spec In Lab Eriberto Melgar MD CHEMISTRY ORDERABLES Performing Organization Address City/[facility]/ZIP Code Phon e Number [address] [facility] documented in this encounter Visit Diagnoses Not on filedocumented in this encounter Care Teams Liquor Grinding Mill Operator Relationship Specialty Start Date End Date Anna Mullen MD PCP - General 12/03/10 [address] [place] [address] documented as of this encounter
--- OUTSIDE RECORDS SUMMARY | 2022-03-13 18:30 | XMS_ITS | Encounter Summary ---
:1965 [address] Organization [facility] [place] [address] Care Team Providers Name Role Phone Anna Mullen MD Primary Care Provider Encounter Details Date Type Department Care Team Description 06/14/2014 Hospital Encounter Laboratory [place], Jesus LBP radiating to [facility] MD Sandra [address] [place], [place] [address] [facility] [phone] [place] [address] Social History Tobacco Use Types Packs/Day Years [...] tablet Dx code :250.60 traZODone (DESYREL) 50 Take 1 tablet by 90 tablet 3 014 05/16/2015 mg TabletIndications: mouth nightly. Insomnia, unspecified tacrolimus (PROGRAF) 1 Take 2 capsules by 120 capsule 11 03/201405/29/2015 mg Capsule mouth 2 times daily. aspirin 81 mg Tablet, Take 81 mg by mouth 0 08/30/2019 Chewable daily. lisinopril Take 20 mg by mouth 0 08/03 (PRINIVIL;ZESTRIL) 20 daily. mg Tablet Diabetic Supplies, Fax form to [facility] 100 each 12 05/10/2014 1 Miscellan. [facility] medical for testing supplies 10 times per day levothyroxine Take 150 mcg by 0 2016 (SYNTHROID) 175 mcg mouth daily. tablet Blood Sugar Diagnostic Use To check BG four 400 each 3 11/201308/13/2015 (ONE TOUCH ULTRA TEST) times daily. Dx. test strip 250.0 mycophenolate Take 500 mg by mouth 0 1 10/01/2013 (CELLCEPT) 250 mg 2 times daily. capsule Magnesium Gluconate 27 Take 1 tablet by 0 08/22/2015 mg (500 mg) Tab mouth daily as needed. traMADol (ULTRAM) 50 mg Take 100 mg by mouth 0 02/22/2016 tablet 2 times daily. sulfamethoxazole-trimet Take 1 tablet by 0 09/08/2014 hoprim (BACTRIM;SEPTRA) mouth. MON-WED-FRI 400-80 mg per tablet ondansetron (ZOFRAN) 4 Take 1 tablet by 90 tablet 11 014 10/08/2014 mg tablet mouth every 8 hours as needed for Nausea. sulfamethoxazole-trimet Take 1 tablet by 90 tablet 3 201309/08/2014 hoprim (BACTRIM DS) mouth three times a 800-160 [...] as of this encounter Visit Diagnoses Diagnosis LBP radiating to right leg Lumbago documented in this encounter Care Teams Anthropology Instructor Relationship Specialty Start Date End Date Anna Mullen MD PCP - General 12/03/10 [address] [place] [address] documented as of this encounter
--- OUTSIDE RECORDS SUMMARY | 2022-03-13 18:30 | XMS_ITS | Encounter Summary ---
:1965 Author Organization [facility] [place] [place] [address] Care Team Providers Name Role Phone Anna Mullen MD Primary Care Provider Encounter Details Date Type Department Care Team Description 12/04/2014 Hospital Encounter Laboratory Eriberto Melgar [facility] [place] [address] [employer] [address]GE [place], [place] [address] (Wo rk) Social History Tobacco [...] daily. Diabetic Supplies, Fax form to [facility] 100 each 12 06/26/2014 1 10/14/2014 [employer] [facility] for testing supplies 4 times per [...] Associated Diagnosis Comme nts TACROLIMUS LEVEL Routine 12/04/2014 8:00 AM Resul ts for this EDT procedure are i n the results section. documented in this encounter Results Tacrolimus level (12/04/2014 8:00 AM EDT) athologist Signature Tacrolimus Lvl 7.7 ng/mL [facility] Comment: Trough therapeutic: 5-15 ng/mL Specimen Anatomical Collection Method Collection Time Receive d Time (Source) Location / / Volume Laterality Blood specimen Venous Draw / 12/04/2014 8:00 AM 2014 7:59 (specimen) Unknown EDT AM EDT Resulting Agency Comment Spec In Lab Eriberto Melgar MD CHEMISTRY ORDERABLES Performing Organization Address City/State/[place] [address] [facility] documented in this encounter Visit Diagnoses Not on filedocumented in this encounter Care Teams Production Mechanic Relationship Specialty Start Date End Date Anna Mullen MD PCP - General 12/03/10 [address] [place] [address] documented as of this encounter
--- OUTSIDE RECORDS SUMMARY | 2022-03-13 18:30 | XMS_ITS | Encounter Summary ---
:1965 Author Organization [facility] [place] [address] Care Team Providers Name Role Phone Anna Mullen MD Primary Care Provider Encounter Details Date Type Department Care Team Description 01/03/2015 Hospital Encounter Laboratory [facility] [place] [address] TR[address] SURGE [place], [place] [address] (Wo rk) Social History Tobacco [...] times daily. Diabetic Supplies, Fax form to [facility] 100 each 12 06/26/2014 1 10/14/2014 [employer] [facility] for testing supplies 4 times per [...] Diagnosis Comme nts LAVENDER TUBE HOLD Routine 01/03/2015 8:30 AM Res ults for this EDT procedure are i n the results section. TACROLIMUS LEVEL Routine 01/03/2015 8:30 AM Resul ts for this EDT procedure are i n the results section. documented in this encounter Results Lavender Tube HOLD (01/03/2015 8:30 AM EDT) Patholo gist Method Time Signature Lavender Hold Sample in [facility]. [facility] Specimen Anatomical Collection Method Collection Time Receive d Time (Source) Location / / Volume Laterality Blood specimen Venous Draw / 01/03/2015 8:30 AM 2014 8:12 (specimen) Unknown EDT PM EDT Eriberto Melgar MD HEMATOLOGY ORDERABLES Performing Organization Address City/State/[place] [address] [facility] Tacrolimus level (01/03/2015 8:30 AM EDT) P athologist Signature Tacrolimus Lvl 5.3 ng/mL [facility] Comment: Trough therapeutic: 5-15 ng/mL Specimen Anatomical Collection Method Collection Time Receive d Time (Source) Location / / Volume Laterality Blood specimen Venous Draw / 01/03/2015 8:30 AM 2014 7:56 (specimen) Unknown EDT AM EDT Resulting Agency Comment Spec In Lab Eriberto Melgar MD CHEMISTRY ORDERABLES Performing Organization Address City/State/[place] [address] [facility] documented in this encounter Visit Diagnoses Not on filedocumented in this encounter Care Teams [place] Sheriff Relationship Specialty Start Date End Date Anna Mullen MD PCP - General 12/03/10 [address] [place] [address] documented as of this encounter
--- OUTSIDE RECORDS SUMMARY | 2022-03-13 18:30 | XMS_ITS | Encounter Summary ---
:1965 Author Organization [facility] [place] [address] Care Team Providers Name Role Phone Anna Mullen MD Primary Care Provider Reason for Visit Reason Onset Date Comments Medication Refill 03/02/2014 Encounter Details Date Type Department Care Team Description 03/02/2014 Refill Solid Organ Transplant at Fermin Dozier MD [facility] Unique ph[facility] [place] [address] [place] [address] [phone] (Wo rk) Social History Tobacco Use Types [...] filedocumented in this encounter Care Teams Director Internal Control Relationship Specialty Start Date End Date Anna Mullen MD PCP - General 12/03/10 [address] [place], [place] [address] documented as of this encounter
--- OUTSIDE RECORDS SUMMARY | 2022-03-13 18:30 | XMS_ITS | Encounter Summary ---
:1965 Author Organization [place] [address] Care Team Providers Name Role Phone Anna Mullen MD Primary Care Provider Reason for Visit Reason Comments Medication Refill Encounter Details Date Type Department Care Team Description 09/08/2014 Refill Solid Organ Transplant at Kj Odell MD [facility] [employer] [place] [address] [place] [address] [phone] (Wo rk) Social History Tobacco Use Types [...] on filedocumented in this encounter Care Teams Smt Machine Operator Relationship Specialty Start Date End Date Anna Mullen MD PCP - General 12/03/10 [address] [place], [place] [address] documented as of this encounter
--- OUTSIDE RECORDS SUMMARY | 2022-03-13 18:30 | XMS_ITS | Encounter Summary ---
:1965 Author Organization [facility] [place] [address] Care Team Providers Name Role Phone Anna Mullen MD Primary Care Provider Encounter Details Date Type Department Care Team Description 04/03/2014 External Results Solid Organ Transplant Michael Smiley I, at [facility] [place] [address] [place] [address] [phone] (Wo rk) Social History Tobacco Use Types [...] Procedure Name Priority Date/Time Associated Diagnosis Comme [facility] TRANSPLANT Routine 04/01/2014 Results fo r this FOLLOW UP LABS EXTERNAL proc edure are in the RESULTS PANEL results sectio n. documented in this encounter Results (ABNORMAL) Transplant: Follow up lab request - External Results (04/01/2014) [facility] Method Time Signature WBC 4.36 (External Lab) Hemoglobin 14.8 13.5 - (External 17.5 Lab) Hematocrit 42.1 41.0 - (External 53.0 Lab) Amylase 29.8 (External Lab) Lipase 81 (External Lab) BUN 9 (External Lab) Creatinine 1.1 (External Lab) Tacrolimus Lvl ABORh Type Narrative This result has an attachment that is no t available. Historical Provider MD CHEMISTRY ORDERABLES documented in this encounter Visit Diagnoses Not on filedocumented in this encounter Care Teams Computer Forensic Specialist Relationship Specialty Start Date End Date Anna Mullen MD PCP - General 12/03/10 [address] [place] [address] documented as of this encounter
--- OUTSIDE RECORDS SUMMARY | 2022-03-13 18:30 | XMS_ITS | Encounter Summary ---
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 Spec In Lab Eriberto Melgar MD HEMATOLOGY ORDERABLES Performing Organization Address City/State/ZIP Code Phon e Number [place] [phone] [facility] documented in this encounter Visit Diagnoses Diagnosis Need for prophylactic immunotherapy Status post pancreas transplantation 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 CMV (cytomegalovirus) antibody positive Other and unspecified nonspecific immuno logical findings documented in this encounter Care Teams Launderer Hand Relationship Specialty Start Date End Date Anna Mullen MD PCP - General 12/03/10 [address] [place] [address] documented as of this encounter
--- OUTSIDE RECORDS SUMMARY | 2022-03-13 18:30 | XMS_ITS | Encounter Summary ---
:1965 Author Organization [facility] [address] Care Team Providers Name Role Phone Anna Mullen MD Primary Care Provider Encounter Details Date Type Department Care Team Description 07/13/2014 External Results [place] [address] Social History Tobacco Use Types Packs/Day [...] Procedure Name Priority Date/Time Associated Diagnosis Comme [facility] TRANSPLANT FOLLOW UP LABS Routine 07/08/2014 EXTERNAL RESULTS PANEL documented in this encounter Results Transplant: Follow up lab request - External Results (07/08/2014) Narrative This result has an attachment that is no t available. Historical Provider CHEMISTRY ORDERABLES documented in this encounter Visit Diagnoses Not on filedocumented in this encounter Care Teams Offset Plate Maker Relationship Specialty Start Date End Date Anna Mullen MD PCP - General 12/03/10 [address] [place], [place] [address] documented as of this encounter
--- OUTSIDE RECORDS SUMMARY | 2022-03-13 18:30 | XMS_ITS | Encounter Summary ---
:1965 Author Organization [facility] Address [address] [place] [address] Care Team Providers Name Role Phone Anna Mullen MD Primary Care Provider Encounter Details Date Type Department Care Team Description 06/14/2014 Orders Only Solid Organ Eriberto Melgar Need for prophylactic [place] [facility] [place] Arlyn vaccination against [facility] [address] dillard [place], [place] TRANSPLANT SURGE RY (pneumococcus) (Primary [id number] [place] [address] Dx) [phone] Social History Tobacco Use Types Packs/Day Years [...] as of this encounter Visit Diagnoses Diagnosis Need for prophylactic vaccination agains t Streptococcus pneumoniae (pneumococcus) - Primary Need for prophylactic vaccination agains t streptococcus pneumoniae (pneumococcus) documented in this encounter Care Teams Supply Clerk Relationship Specialty Start Date End Date Anna Mullen MD PCP - General 12/03/10 [address] [place] [address] documented as of this encounter
--- OUTSIDE RECORDS SUMMARY | 2022-03-13 18:30 | XMS_ITS | Encounter Summary ---
:1965 Author Organization [place] [address] Care Team Providers Name Role Phone Anna Mullen MD Primary Care Provider Reason for Visit Reason Comments Medication Refill Encounter Details Date Type Department Care Team Description 10/08/2014 Refill Solid Organ Transplant at [facility], Kj Rey MD [facility] [place] [address] [place] [address] [phone] (Wo rk) Social History Tobacco Use Types [...] on filedocumented in this encounter Care Teams Follow Up Clerk Relationship Specialty Start Date End Date Anna Mullen MD PCP - General 12/03/10 [address] [place], [place] [address] documented as of this encounter
--- OUTSIDE RECORDS SUMMARY | 2022-03-13 18:30 | XMS_ITS | Encounter Summary ---
:1965 Author Organization [facility] [place] [address] Care Team Providers Name Role Phone Anna Mullen MD Primary Care Provider Encounter Details Date Type Department Care Team Description 07/08/2014 Hospital Encounter Laboratory Talia [facility] [place] [address] TRANSPLANT SURGE [place], [place] [address] (Wo rk) Social History Tobacco [...] code :250.60 Diabetic Supplies, Fax form to [facility] 100 each 12 06/26/2014 1 10/14/2014 Miscellan. [facility] for testing supplies 4 times per day traZODone (DESYREL) 50 Take 1 tablet by 90 tablet 3 014 05/16/2015 mg TabletIndications: mouth nightly. Insomnia, unspecified tacrolimus (PROGRAF) 1 Take 2 capsules by 120 capsule 03/201405/29/2015 mg Capsule mouth 2 times daily. [...] Associated Diagnosis Comme nts TACROLIMUS LEVEL Routine 07/08/2014 9:50 AM Resul ts for this EST procedure are i n the results section. documented in this encounter Results Tacrolimus level (07/08/2014 9:50 AM EST) athologist Signature Tacrolimus Lvl 6.2 ng/mL CERNER MILLENNIUM Comment: Trough therapeutic: 5-15 ng/mL Specimen Anatomical Collection Method Collection Time Receive d Time (Source) Location / / Volume Laterality Blood specimen 07/08/2014 9:50 AM 014 8:16 (specimen) EST AM EST Resulting Agency Comment Spec In Lab Eriberto Melgar MD CHEMISTRY ORDERABLES Performing Organization Address City/State/ZIP [place] [address] [facility] documented in this encounter Visit Diagnoses Not on filedocumented in this encounter Care Teams Wreath Maker Relationship Specialty Start Date End Date Anna Mullen MD PCP - General 12/03/10 [address] [place] [address] documented as of this encounter
--- OUTSIDE RECORDS SUMMARY | 2022-03-13 18:30 | XMS_ITS | Encounter Summary ---
:1965 Author Organization [facility] [place] [address] Care Team Providers Name Role Phone Anna Mullen MD Primary Care Provider Encounter Details Date Type Department Care Team Description 09/07/2014 [facility] Nev[place]; [address] Bruno B [address] [place] [address] DERMATOLOGY [phone] [place], [place] [address] (Wo rk) Social History Tobacco Use Types Packs/Day Years Used Date Never Smoker Smokeless Tobacco: Never Used Alcohol Use Standard Drinks/Week Comments No 0 (1 standard drink = 0.6 oz pure alcoho l) history of abuse, stopped 1996 Sex Assigned at Date Recorded Male 05/29/2021 11:28 PM EDT documented as of this encounter Progress Notes Artemio Butcher MD - 09/07/2014 8:15 AM EST Problems: 1. Skin check. 2. Status post pancreatic transplantation, July 2013. 3. 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 Richard is a 48-year-old gentleman who is referred today by Anna Mullen for a general skin check. The patient is very fair skinned and has had a fair amount of sun exposure and sunburns in the past. But more importantly, he is status post pancreatic transplantation and is on immunosuppressant therapy following the procedure done in July 2013. He is followed by Dr. Melgar. Physical examination reveals a pleasant, 48-year-old gentleman who is blue eyed and fair skinned with reddish hair. He has hypopigmented patches on the volar forearms, right dorsal forearm, on his back, and across the forehead consistent with vitiligo. He has noted this for several years. He has unremarkable, regularly shaped ephelides of the upper back and a paucity of melanocytic nevi. Examination of the scalp, the anterior parietal scalp with his receding frontal hairline, the chest, the back, and the hands, arms, forearms, thighs, calves, feet, soles of the feet, toe web spaces, and his buttocks is unremarkable. He has deformation of his left hallux following this being broken numerous times after his CVA and left hemiparesis. He states that he has decreased sensation in the left side, more prominent in the foot than in his hand. Fortunately, the cutaneous examination is benign. Assessment and Plan: Benign skin examination in a 48-year-old pancreatic transplant patient. a. Patient reassured today about benign skin examination. b. I explained the reason for having yearly skin checks. c. The patient belongs to a transplant support group, and there, too, the increased risk of nonmelanoma skin cancers has been explained to him, and he understands this clearly. d. I stressed the importance of sun avoidance precautions, which he is following. I recommended Neutrogena sunscreen with Helioplex, at least SPF 30, and the importance of wearing a hat when out of doors. e. I recommended return to clinic in another year for repeat check; [id number] reminder in one year. COPY: Anna Mullen M.D. Eriberto Melgar M.D. documented in this encounter Plan of Treatment Not on filedocumented as of this encounter Visit Diagnoses Diagnosis Nevus Benign neoplasm of skin, site unspecifie d Vitiligo documented in this encounter Care Teams Loading Supervisor Relationship Specialty Start Date End Date Anna Mullen MD PCP - General 12/03/10 [address] [place] [address] documented as of this encounter
--- OUTSIDE RECORDS SUMMARY | 2022-03-13 18:30 | XMS_ITS | Encounter Summary ---
:1965 Author Organization [facility] [place] [address] Care Team Providers Name Role Phone Meaghan Mullen MD Primary Care Provider Encounter Details Date Type Department Care Team Description 10/24/2014 Surgery Gastroenterology at [facility] [place] Meaghan Rapp MD COLONOSCOPY, [place] [address] GASTROENTEROLOGY DEPT. [place], [place] [address] Social History Tobacco Use Types [...] you need to be checked. Thursday-Thursday Clinic [phone] 8a-5p Same Day Endo [phone] 7a-8p Otherwise contact [phone] and ask to speak to the natural gas engineer salesperson shoes Follow up care is a du part [...] times daily. Diabetic Supplies, Fax form to [facility] 100 each 12 06/26/2014 1 10/14/2014 Prescription Eyewearcellan. [facility] medical for testing supplies 4 times per [...] SHUKLA : 1965 Age: 49 y.o. Address: [address] [place] [phone] (home) [phone] (work) Mobile: No relevant phone numbers on [...] GI ENDOSCOPY performed by CLAYTON BHAKTA at [facility] ENDOSCOPY ??? Upper gi endoscopy, biopsy 12/31/2011 UPPER GASTROINTESTINAL ENDOSCOPY,WITH BIOPSY SINGLE OR MULTIPLE performed by CLAYTON BHAKTA at [facility] ENDOSCOPY ??? Shoulder surgery ??? Carpal tunnel release ??? Appendectomy ??? Musculoskeletal surgery unlisted 10 years carpel tunnel ??? 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 Transplant allograft pancreas 08/28/2013 @PANCREATIC TRANSPLANT performed by Iraj Keller MD at [facility] MAIN OR ??? Transplant, prep donor pancreas 08/28/2013 @PREPARATION CADAVERIC PANCREAS, STANDARD performed by Iraj Keller MD at [facility] MAIN OR Medications: Prior to Admission medications [...] daily. 07/31/14 Kj Alexandra MD Diabetic Supplies, [facility]. [facility] Fax form to [facility] medical for testing supplies 4 [...] Rapp MD - 10/25/2014 7:45 PM EST [facility] Operative Note Patient Name: Reese Shukla : [id number] See Provation procedure note. Meaghan Rapp MD [...] Surgical Pathology Report (10/24/2014 3:01 PM EST) [facility] gist Method Time Signature Surgical CERNER Pathology ? [facility] Report ? Provider: ?? MEAGHAN RAPP ?Pt. Name: ?? RAPHAEL COXNiki, REESE Guillen ? Acc #: ?[id number] ?Pt. MRN: ?[id number] ? Col Date: ?? 5 ? /Sex: [...] Organization Address City/State/[place] [address] [facility] Specimen to Pathology (surgical or derm) (10/24/2014 3:01 PM EST) Specimen Anatomical Collection Method Collection Time Receive d Time (Source) Location / / Volume Laterality AP Specimen 10/24/2014 3:01 PM 5 3:01 EST PM EST Narrative CERNER MILLENNIUM - 10/24/2014 3:[address] Specimen requisition ordered. ??Separate Pathology report to follow Meaghan Rapp MD PATHOLOGY/CYTOLOGY ORDERABLE S Performing Organization Address City/[facility]/[place] [address] CERNER MILLENNIUM COLONOSCOPY (10/24/2014 2:12 PM EST) Component Value Ref Test Analysis Performed At [facility] Range Method Time Signature COLONOSCOPY [facility] Endoscopy Patient Name: Reese Shukla ? Procedure Date: 10/24/2014 2:12 PM ? Date of : 1965 ? Age: 49 ? Order #: [id number] ? Procedure: ? Colonoscopy Indications: ? personal history of polyps, diarr hea Providers: ? Meaghan Rapp MD, Rajat Zamora, ? RN, Yesica Mayo, Licensed Practical Nurse Instructor Referring MD: ?Meaghan Mullen MD Medicines: ? [...] to the ? procedure by the physician. T rogers ? procedure was verified in the ? [...] withdrawn. Th e ? colonoscopy was performed doug soliman. ? The patient tolerated the pro cedure [...] MAR Action Action Date Dose Rate Site diphenhydrAMINE (BENADRYL) Given 10/24/2014 2:29 PM EST 25 mg injection ONCE PRN, Starting on Thu10/24/14 at 1425, Until Thu10/24/14 at 1610, Intra-Operative (Intra-Procedure), Routine Given 10/24/2014 2:25 PM EST 25 mg fentaNYL 50 mcg/mL multi-dose injection Given 10/24/2014 2:42 PM EST 50 mcg ONCE PRN, Starting on Thu10/24/14 at 1425, Until Thu10/24/14 at 1610, Intra-Operative (Intra-Procedure), Routine Given 10/24/2014 2:37 PM EST 50 mcg Given 10/24/2014 2:32 PM EST 50 mcg midazolam (PF) (VERSED) 1 mg/mL multi-dose Given 10/24/2014 2:42 PM EST 1 mg injection ONCE PRN, Starting on Thu10/24/14 at 1425, Until Thu10/24/14 at 1610, Intra-Operative (Intra-Procedure), Routine Given 10/24/2014 2:37 PM EST 1 mg Given 10/24/2014 2:32 PM EST 1 mg documented in this encounter Active and Recently Administered Medications Times are shown in EST. PRN Medication Order 10/22/2014 10/23/2014 10/24/2014 diphenhydrAMINE (BENADRYL) injection (CANCELED) 1425 (Given - Provider: Rajat Zamora RN)1429 (Given - Provider: Rajat Zamora RN) ONCE PRN, Starting Thu10/24/14 at 1425, Until Thu10/24/14 at 1610, Intra- Operative (Intra-Procedure), Routine fentaNYL [...] Routine documented in this encounter Care Teams Capability Lead Relationship Specialty Start Date End Date Meaghan Mullen MD PCP - General 12/03/10 [address] [place] [address] documented as of this encounter
--- OUTSIDE RECORDS SUMMARY | 2022-03-13 18:30 | XMS_ITS | Encounter Summary ---
:1965 Author Organization [facility] [place] [address] Care Team Providers Name Role Phone Anna Mullen MD Primary Care Provider Encounter Details Date Type Department Care Team Description 09/01/2014 Hospital Encounter Laboratory Talia [facility] [place] [address] TRANSPLANT SURGE [place], [place] [address] (Wo rk) Social History Tobacco [...] Dx code :250.60 CELLCEPT 250 mg Capsule Take 2 capsules by 360 capsule 3 08/201305/09/2015 mouth 2 times daily. Diabetic Supplies, Fax form to [facility] 100 each 12 06/26/2014 1 10/14/2014 Miscellan. [facility] for testing supplies 4 times per [...] tablet by 0 09/08/2014 hoprim (BACTRIM;SEPTRA) mouth. MON-THU-THU 400-80 mg per tablet ondansetron (ZOFRAN) 4 [...] Associated Diagnosis Comme nts TACROLIMUS LEVEL Routine 09/01/2014 9:00 AM Resul ts for this EST procedure are i n the results section. documented in this encounter Results Tacrolimus level (09/01/2014 9:00 AM EST) athologist Signature Tacrolimus Lvl 6.0 ng/mL [facility] Comment: Trough therapeutic: 5-15 ng/mL Specimen Anatomical Collection Method Collection Time Receive d Time (Source) Location / / Volume Laterality Blood specimen Venous Draw / 09/01/2014 9:00 AM 2014 8:01 (specimen) Unknown EST AM EST Resulting Agency Comment Spec In Lab Eriberto Melgar MD CHEMISTRY ORDERABLES Performing Organization Address City/State/[place] [address] [facility] documented in this encounter Visit Diagnoses Not on filedocumented in this encounter Care Teams Insurance Risk Surveyor Relationship Specialty Start Date End Date Anna Mullen MD PCP - General 12/03/10 [address] [place] [address] documented as of this encounter
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
--- OUTSIDE RECORDS SUMMARY | 2022-03-13 18:31 | XMS_ITS | Encounter Summary ---
:1965 Author Organization [facility] [place] [address] Care Team Providers Name Role Phone Anna Mullen MD Primary Care Provider Encounter Details Date Type Department Care Team Description 01/06/2014 Hospital Encounter MRI at [facility] [place] LBP radiating to right leg; [facility] [place] [address] Social History Tobacco Use Types Packs/Day [...] tablet by 0 09/08/2014 oprim (BACTRIM;SEPTRA) mouth. MON-WED-THU 400-80 mg per tablet ondansetron (ZOFRAN) 4 [...] 38.5 Centigrade). Diabetic Supplies, Fax form to [facility] 100 each 12 09/02/2013 0 05/10/2014 [place]. [facility] [place] [facility] [place] 10 times per day citalopram (CELEXA) 20 Take 40 mg by mouth 0 08/06/2016 mg tablet daily. aspirin 325 mg tablet Take 325 mg by mouth 0 05/31/2014 daily. documented as of this encounter Plan of Treatment Not on filedocumented as of this encounter Procedures Procedure Name Priority Date/Time Associated Diagnosis Comme nts MRI THORACIC SPINE Routine 01/06/2014 1:10 PM LBP radiating to Results for this WITHOUT CONTRAST EDT right leg procedure are in Stroke-like symptoms the res ults section. documented in this encounter Results MRI thoracic spine without contrast (01/06/2014 1:10 PM EDT) Anatomical Region Laterality Modality T-spine Magnetic Resonance Specimen (Source) Anatomical Collection Method Collection Time Re ceived Time Location / / Volume Laterality 01/06/2014 1:10 PM EDT Narrative 01/06/2014 1:34 PM EDT Examination MR Thoracic Spine WO [facility] Clinical History Right leg pain + brisk reflexes in right knee and ankle ?? ? THoracic disc disease Comparison Lumbar spine MRI dated 12/23/2012. Technique Routine noncontrast MRI of the thoracic spine and routine noncontrast MRI of the lumbar spine. Findings Thoracic spine: There is a gentle convex left scoliosis of the thoracic spine. ??Disc degenerative changes are seen in the tho racic spine primarily at the mid thoracic levels T5-6- T8-9 . ??endplate irregularities primarily at inferior endplate of T6, inferior endplate of T7 and inferior endplate of T8 are identified consistent with Schmorl's nod es. ??No aggressive marrow lesions. ?? Mild proliferative changes are seen in t he mid thoracic spine anteriorly. Cord signal and morphology are normal. ?? C6-7: There is a mild central and right paracentral disc extrusion extending cephalad images 19 and 20 of series 7 . ??mild effacement of the ventral thecal sac. ?? T7-8: There is a mild to moderate centra l disc extrusion extending slightly cephalad. Best seen on images 23 and 24 of series 7 . ?? T8-9: there is a mild to moderate centra l disc extrusion best seen on images 25 and 26 of series 7 . ?? T11-12: There is a mild broad-based disc extrusion seen with mild to moderate effacement of the ventral thecal sac. ?? Conus demonstrates normal size shape and signal intensity and terminates appropriately at T12-L1. ?? Lumbar spine: There is a convex right sc oliosis lumbar spine with asymmetric disc degenerative changes which appears greater on the left side of the curve at L2-3 and L4 5 . ??there is a compensa tory leftward curve at the LS junction with disc degenerative changes and endpl ate proliferative change on the right at L4-5 and L5-S1. ?? There is extensive disc degenerative melony nge throughout the lumbar spine similar in pattern and extent to prior examinati on of 12/24/2019 13 . There is some evidence of increase in the degree of di sc degenerative change at the L4-5 level bilaterally and on the right right -sided L5-S1 level. Vertebral bodies are maintained in height. No pars defect s are seen. The conus demonstrates normal size shape and signal intensity a nd terminates appropriately at T12-L1. ?? No aggressive marrow lesions are identif ied. There is similar pattern of retrolisthesis of L4 on L5 and L5 on S1 compared to prior exam. ?? Findings at specific levels: T12-L1: No disc protrusion central stenosis or foraminal narrowing. ?? L1-2: There is a broad-based bulge with superimposed left paracentral disc extrusion with moderate overall canal na rrowing on the left. This is best seen on image 8 Series 12 and image 8 and 9 o f series 13 . Moderate bilateral foraminal narrowing present. ?? L2-3: There is a broad-based disc protru pankaj mild in extent. ??Mild overall canal stenosis in conjunction with facet arthropathy. Moderate to severe left and moderate right foraminal narrowing. ?? L3-4: Mild overall canal stenosis due to broad-based bulge and facet arthropathy. ??Endplate proliferative ch anges, broad-based bulge and facet arthropathy result in moderate foraminal narrowing bilaterally. ?? L4-5: There is moderate central stenosis at L4-5 similar in pattern and extent to prior examination with retrolisthesis of L4 on L5, broad-based disc protrusion and endplate proliferative ch anges. ??Facet arthropathy is similar to prior exam. ??There is moderate right an d severe left foraminal narrowing which is similar or slightly more pronounced o n the left compared to prior exam. ?? L5-S1: There is mild overall canal steno sis secondary to broad-based disc protrusion and retrolisthesis. ??There i s facet arthropathy posteriorly. There is narrowing of the right lateral recess due to right-sided endplate proliferative change and disc protrusion . ??Severe right and moderate left foraminal narrowing is present similar t o prior exam. ?? Impression Gentle scoliosis thoracic spine. Scoliosis of the lumbar spine with asymm etric disc degenerative changes. ?? Mild progression of asymmetric disc dege nerative changes at L4-5 on the left and L5-S1 on the right ?? Mild progression of foraminal narrowing on the left at L4-5. ?? Severe right foraminal narrowing at L5-S 1. ?? Severe left foraminal narrowing at L4-5. ?? Degenerative changes with disc extrusion s in the thoracic and lumbar spine described in detail at individual levels in the body of the report. ?? Procedure Note Jameel Arboleda MD - 01/06/2014Formatt ing of this note might be different from the original. Examination MR Thoracic Spine WO [facility] Clinical History Right leg pain + brisk reflexes in right knee and ankle ? THoracic disc disease Comparison Lumbar spine MRI dated 12/23/2012. Technique Routine noncontrast MRI of the thoracic spine and routine noncontrast MRI of the lumbar spine. Findings Thoracic spine: There is a gentle convex left scoliosis of the thoracic spine. Disc degenerative changes are seen in the tho racic spine primarily at the mid thoracic levels T5-6- T8-9 . endplate ir regularities primarily at inferior endplate of T6, inferior endplate of T7 and inferior endplate of T8 are identified consistent with Schmorl's nod es. No aggressive marrow lesions. Mild proliferative changes are seen in t he mid thoracic spine anteriorly. Cord signal and morphology are normal. C6-7: There is a mild central and right paracentral disc extrusion extending cephalad images 19 and 20 of series 7 . mild effacement of the ventral thecal sac. T7-8: There is a mild to moderate centra l disc extrusion extending slightly cephalad. Best seen on images 23 and 24 of series 7 . T8-9: there is a mild to moderate centra l disc extrusion best seen on images 25 and 26 of series 7 . T11-12: There is a mild broad-based disc extrusion seen with mild to moderate effacement of the ventral thecal sac. Conus demonstrates normal size shape and signal intensity and terminates appropriately at T12-L1. Lumbar spine: There is a convex right sc oliosis lumbar spine with asymmetric disc degenerative changes which appears greater on the left side of the curve at L2-3 and L4 5 . there is a compensato ry leftward curve at the LS junction with disc degenerative changes and endpl ate proliferative change on the right at L4-5 and L5-S1. There is extensive disc degenerative melony nge throughout the lumbar spine similar in pattern and extent to prior examinati on of 12/24/2019 13 . There is some evidence of increase in the degree of di sc degenerative change at the L4-5 level bilaterally and on the right right -sided L5-S1 level. Vertebral bodies are maintained in height. No pars defect s are seen. The conus demonstrates normal size shape and signal intensity a nd terminates appropriately at T12-L1. No aggressive marrow lesions are identif ied. There is similar pattern of retrolisthesis of L4 on L5 and L5 on S1 compared to prior exam. Findings at specific levels: T12-L1: No disc protrusion central stenosis or foraminal narrowing. L1-2: There is a broad-based bulge with superimposed left paracentral disc extrusion with moderate overall canal na rrowing on the left. This is best seen on image 8 Series 12 and image 8 and 9 o f series 13 . Moderate bilateral foraminal narrowing present. L2-3: There is a broad-based disc protru pankaj mild in extent. Mild overall canal stenosis in conjunction with facet arthropathy. Moderate to severe left and moderate right foraminal narrowing. L3-4: Mild overall canal stenosis due to broad-based bulge and facet arthropathy. Endplate proliferative zaragoza ges, broad-based bulge and facet arthropathy result in moderate foraminal narrowing bilaterally. L4-5: There is moderate central stenosis at L4-5 similar in pattern and extent to prior examination with retrolisthesis of L4 on L5, broad-based disc protrusion and endplate proliferative ch anges. Facet arthropathy is similar to prior exam. There is moderate right and severe left foraminal narrowing which is similar or slightly more pronounced o n the left compared to prior exam. L5-S1: There is mild overall canal steno sis secondary to broad-based disc protrusion and retrolisthesis. There is facet arthropathy posteriorly. There is narrowing of the right lateral recess due to right-sided endplate proliferative change and disc protrusion . Severe right and moderate left foraminal narrowing is present similar t o prior exam. Impression Gentle scoliosis thoracic spine. Scoliosis of the lumbar spine with asymm etric disc degenerative changes. Mild progression of asymmetric disc dege nerative changes at L4-5 on the left and L5-S1 on the right Mild progression of foraminal narrowing on the left at L4-5. Severe right foraminal narrowing at L5-S 1. Severe left foraminal narrowing at L4-5. Degenerative changes with disc extrusion s in the thoracic and lumbar spine described in detail at individual levels in the body of the report. Jesus Diana MD IMG MRI ORDERABLES documented in this encounter Visit Diagnoses Diagnosis LBP radiating to right leg Lumbago Stroke-like symptoms Other symptoms involving nervous and mus culoskeletal systems documented in this encounter Care Teams [facility] [facility] Relationship Specialty Start Date End Date Anna Mullen MD PCP - General 12/03/10 [address] [place] [address] documented as of this encounter
--- OUTSIDE RECORDS SUMMARY | 2022-03-13 18:31 | XMS_ITS | Encounter Summary ---
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 Blood specimen 10/18/2013 7:28 AM 014 7:32 (specimen) EST AM EST Resulting Agency Comment Spec In Lab Eriberto Melgar MD HEMATOLOGY ORDERABLES Performing Organization Address City/State/ZIP Code Phon e Number [address] [facility] Cholesterol, total (10/18/2013 7:28 AM EST) athologist Signature Chol, Total 124 <=199 mg/dL [facility] Comment: Recommendations of the NCEP Adult Treatm ent Panel for the following risk cutoff thresholds for the [place] n: Desirable: <200 mg/dL Borderline High: 200-239 mg/dL High: > or = 240 mg/dL Specimen Anatomical Collection Method Collection Time Receive d Time (Source) Location / / Volume Laterality Blood specimen 10/18/2013 7:28 AM 014 7:32 (specimen) EST AM EST Resulting Agency Comment Spec In Lab Eriberto Melgar MD CHEMISTRY ORDERABLES Performing Organization Address City/[facility]/ZIP Code Phon e Number [address] [facility] documented in this encounter Visit Diagnoses Diagnosis Need for prophylactic immunotherapy Status post pancreas transplantation 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 Dehydration documented in this encounter Care Teams Gaggerman Relationship Specialty Start Date End Date Anna Mullen MD PCP - General 12/03/10 [address] [place] [address] documented as of this encounter
--- OUTSIDE RECORDS SUMMARY | 2022-03-13 18:31 | XMS_ITS | Encounter Summary ---
:1965 Author Organization [facility] [place] [address] Care Team Providers Name Role Phone Anna Mullen MD Primary Care Provider Encounter Details Date Type Department Care Team Description 11/01/2013 Orders Only [facility] Stenos is, spinal, [place] MORENO lumbar [facility] [place] [address] [facility] [phone] [place], [place] [address] Social History Tobacco Use Types [...] as of this encounter Visit Diagnoses Diagnosis Stenosis, spinal, lumbar Spinal stenosis, lumbar region, without neurogenic claudication documented in this encounter Care Teams Railroad Conductor Relationship Specialty Start Date End Date Anna Mullen MD PCP - General 12/03/10 [address] [place], [place] [address] documented as of this encounter
--- OUTSIDE RECORDS SUMMARY | 2022-03-13 18:31 | XMS_ITS | Encounter Summary ---
:1965 Author Organization [facility] [place] [address] Care Team Providers Name Role Phone Anna Mullen MD Primary Care Provider Encounter Details Date Type Department Care Team Description 11/07/2013 Follow-Up Neurology at [facility] Geoffrey Martinez Cubital tunnel syndrome on r ight; [facility] MD Brigitte Late effects of cerebrovascular disease; Drive [facility] Periodic headache [place], [place] [address] NEUROLOGY DEPT. [phone] [place], [place] [address] Social History Tobacco Use Types [...] Sign Reading Time Taken Comments Blood Pressure 151/91 11/07/2013 1:26 PM EDT Pulse 73 11/07/2013 1:26 PM EDT Temperature - - Respiratory Rate - - Oxygen Saturation - - Inhaled Oxygen Concentration - - Weight 90.7 kg (200 lb) 11/07/2013 1:26 PM EDT Height 182.9 cm (6') 11/07/2013 1:26 PM EDT Body Mass Index 27.12 11/07/2013 1:26 PM EDT documented in this encounter Progress Notes Geoffrey Martinez MD - 11/07/2013 1:54 PM EDT Cerebrovascular Disease and Stroke Program Department [place] [address] t: [phone] / f: [phone] Date of Appointment: 11/07/2013 Patient: Richard Hsu : 1965 Patient ID: This 48 y.o. 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 He also has migraine headaches and a lumbar radiculopathy and right cubital tunnel syndrome eacerbated by chainsaw use. In the interim since last clinic visit, the patient has been well. He had a renal pancreatic transplant in July. There is no report of symptoms suggestive of recurrent TIA/Stroke. Medications are being taken as prescribed and without adverse symptoms. Wears wallet in front. Wearing heelbo pad on R. A couple of migraines about a month ago and ok since. Off Naproxen except for occasional use for migraines. One BP 166/106 one time after walking up and down stairs with garbage. Off Depakote since surgery and was on a low dose at that time. Patient Active Problem List Diagnosis Code ??? LBP radiating to right leg 724.2 ??? Diabetes mellitus 250.00 ??? Stroke-like symptoms 781.99 ??? Hypertension 401.9 ??? Edema 782.3 ??? Gastroparesis due to DM 250.60, 536.3 ??? Migraine 346.90 ??? Pancreatitis 577.0 ??? Immunosuppression 279.9 ??? 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 Nexium (Esomeprazole Magnesium) Diarrhea Any acid reflux medication causes severe diarrhea ??? Prilosec (Omeprazole Magnesium) Diarrhea ??? Reglan (Metoclopramide Hcl) TD ??? Simvastatin Outpatient Prescriptions Marked as Taking for the 11/07/13 encounter (Follow-Up) with Geoffrey Martinez MD Medication Sig Dispense Refill ??? HYDROmorphone (DILAUDID) 2 mg tablet Take [...] needed for Nausea. 90 tablet 11 ??? potassium phosphate, monobasic, (K-PHOS) 500 mg tablet Take 500 mg by mouth 2 times daily. ??? valGANCiclovir (VALCYTE) 450 mg tablet Take 900 mg by mouth daily. ??? pantoprazole (PROTONIX) [...] Centigrade). 30 tablet ??? Diabetic Supplies, Miscellan. [facility] Fax form to [facility] medical for testing supplies 10 times per [id number] each 12 ??? levothyroxine (SYNTHROID) 200 mcg [...] tablet Take 325 mg by mouth daily. Exam: Filed Vitals: 11/07/13 1326 BP: 151/91 Pulse: 73 Well appearing patient, nontoxic. LOOKS WELL! Heart regular. No edema lower extremities. No wheezingor dyspnea noted. No rash, thyromegaly. Mood euthymic. Alert, oriented; attentive; speech fluent/articulate, no dysarthria, paraphasic errors or martin aphasia. No facial weakness or dysarthria. No pronator drift or tremor. No asterixis. Intriansic hand muscles checked (interossei normal), some atrophy 1st DIs. Gait normal. Data reviewed: None new. Clinical impression and recommendations: Doing well overall and neurologically. BP a bit elevated and will be checking in with the [facility] later today May need some migraine prophylaxis in the future such as low dose Depakote but will keep off for now. Occasional naproxen for migraine if ok'd by other providers. F/U Spine Center with MRI LS spine 11/29. F/U Ortho re cubital tunnel syndrome as needed. 

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
--- OUTSIDE RECORDS SUMMARY | 2022-03-13 18:31 | XMS_ITS | Encounter Summary ---
:1965 Author Organization [facility] [place] [address] Care Team Providers Name Role Phone Anna Mullen MD Primary Care Provider Encounter Details Date Type Department Care Team Description 11/18/2013 Hospital Encounter Laboratory [facility] [place] [phone] TRANSPLANT SURGE [place], [place] [address] (Wo rk) Social History [...] 6 09/14/2012 mg tablet Dx code :250.60 HYDROmorphone Take 2 tablets by 50 tablet 0 11/01/2013 08/08/2013 (DILAUDID) 2 mg tablet mouth every 4 hours as needed for Pain for 180 days. tacrolimus (PROGRAF) 1 Take 2 capsules by 0 11/0106/07/2014 mg capsule mouth 2 times daily. traMADol (ULTRAM) 50 mg Take 100 mg by mouth 0 02/22/2016 tablet 2 times daily. traZODone (DESYREL) 50 Take 1 tablet by 60 tablet 2 014 05/31/2014 mg tabletIndications: mouth nightly. Insomnia, unspecified sulfamethoxazole-trimet Take 1 tablet by 0 09/08/2014 hoprim (BACTRIM;SEPTRA) mouth. THU-THU-THU 400-80 mg per tablet CELLCEPT 250 mg capsule Take 3 capsules by 540 capsule 3 11/29/2013 mouth 2 times daily. S/P Pancreas Transplant 08/28/2013 Dx V42.83 ondansetron (ZOFRAN) 4 Take 1 tablet by 90 tablet 11 014 10/08/2014 mg tablet mouth every 8 hours as needed for Nausea. potassium phosphate, Take 500 mg by mouth 0 11/29/2013 monobasic, (K-PHOS) 500 2 times daily. mg tablet valGANCiclovir Take 450 mg by mouth 0 05/31/2014 (VALCYTE) 450 mg tablet daily. sulfamethoxazole-trimet Take 1 tablet by 90 tablet 3 201309/08/2014 hoprim (BACTRIM DS) mouth three times a 800-160 mg per tablet week for 30 days. pantoprazole (PROTONIX) Take 1 tablet by 90 tablet 3 201309/08/2014 40 mg tablet mouth daily. Magnesium Gluconate 27 Take 1 tablet by 270 tablet 3 014 11/29/2013 mg (500 mg) Tab mouth 3 times daily. acetaminophen (TYLENOL) Take 2 tablets by 30 tablet 0 09/0205/22/2020 325 mg tablet mouth every 4 hours as needed (Pain, Fever. if oral temperature greater than 38.5 Centigrade). Diabetic Supplies, Fax form to [facility] 100 each 12 09/02/2013 0 05/10/2014 [facility]. [facility] for testing supplies 10 times per day levothyroxine Take 1 tablet by 90 tablet 4 02/07/201312/27 (SYNTHROID) 200 mcg mouth daily. tablet citalopram (CELEXA) 20 Take 40 mg by mouth 0 08/06/2016 mg tablet daily. aspirin 325 mg tablet Take 325 mg by mouth 0 05/31/2014 daily. documented as of this encounter Plan of Treatment Not on filedocumented as of this encounter Procedures Procedure Name Priority Date/Time Associated Diagnosis Comme nts TACROLIMUS LEVEL Routine 11/18/2013 7:49 PM Resul ts for this EDT procedure are i n the results section. documented in this encounter Results Tacrolimus level (11/18/2013 7:49 PM EDT) athologist Signature Tacrolimus Lvl 7.8 ng/mL CERNER MILLENNIUM Comment: Trough therapeutic: 5-15 ng/mL Specimen Anatomical Collection Method Collection Time Receive d Time (Source) Location / / Volume Laterality Blood specimen 11/18/2013 7:49 PM 014 7:51 (specimen) EDT AM EDT Resulting Agency Comment Spec In Lab Eriberto Melgar MD CHEMISTRY ORDERABLES Performing Organization Address City/State/[place] [address] [employer] documented in this encounter Visit Diagnoses Not on filedocumented in this encounter Care Teams Crew Supervisor Relationship Specialty Start Date End Date Anna Mullen MD PCP - General 12/03/10 [address] [place] [address] documented as of this encounter
--- OUTSIDE RECORDS SUMMARY | 2022-03-13 18:31 | XMS_ITS | Encounter Summary ---
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 Light Yellow Yellow CERNER MILLENNIUM RBC UA <1 0 - 3 /HPF CERNER MILLENNIUM WBC UA 1 0 - 3 /HPF CERNER MILLENNIUM Specimen Anatomical Collection Method Collection Time Receive d Time (Source) Location / / Volume Laterality Urine specimen 11/01/2013 7:59 AM 014 8:04 (specimen) EST AM EST Resulting Agency Comment Spec In Lab Eriberto Melgar MD URINE ORDERABLES Performing Organization Address City/State/[place] [address] CERNER LARRYENNIUM documented in this encounter Visit Diagnoses Diagnosis Need for prophylactic immunotherapy 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
--- OUTSIDE RECORDS SUMMARY | 2022-03-13 18:31 | XMS_ITS | Encounter Summary ---
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 thresholds for the [place] populatio n: Desirable: <200 mg/dL Borderline High: 200-239 mg/dL High: > or = 240 mg/dL Specimen Anatomical Collection Method Collection Time Receive d Time (Source) Location / / Volume Laterality Blood specimen 01/24/2014 7:36 AM 014 7:41 (specimen) EDT AM EDT Resulting Agency Comment Spec In Lab Eriberto Melgar MD CHEMISTRY ORDERABLES Performing Organization Address City/[facility] [place] [address] CERNER MILLENNIUM CMV PCR, Quantitative (01/24/2014 7:36 AM EDT) [facility] Time Signature CMV DNA PCR Undetected Undetected CERNER Quant IU/mL [facility] Comment: Result in log IU/mL is Undetected. The quantification range of this assay i s 137 to 9,100,000 IU/mL (2.14 log to 6.96 log IU/mL) with a limit of detection at 91 IU/mL (1.96 log IU/mL). Testing was performed by the [employer] AmpliPrep/ARNAUD T aqMan CMV Test ([employer] Test Performed by: [place] [address] Automated Teller Manager: Sarita Beach, Ph. D. Specimen Anatomical Collection Method Collection Time Receive d Time (Source) Location / / Volume Laterality Blood specimen 01/24/2014 7:36 AM 014 2:55 (specimen) EDT PM EDT Resulting Agency Comment Spec In Lab Eriberto Melgar MD IMMUNOLOGY ORDERABLES Performing Organization Address City/[facility]/[place] [address] CERNER LARRYENNIUM CMV Antibody, IgM (01/24/2014 7:36 AM EDT) P athologist Signature CMV IgM Pos Neg CERNER MILLENNIUM Specimen Anatomical Collection Method Collection Time Receive d Time (Source) Location / / Volume Laterality Blood specimen 01/24/2014 7:36 AM 014 8:01 (specimen) EDT AM EDT Resulting Agency Comment Spec In Lab Eriberto Melgar MD IMMUNOLOGY ORDERABLES Performing Organization Address City/State/ZIP Code Phon e Number [address] [facility] CMV Antibody, IgG (01/24/2014 7:36 AM EDT) P athologist Signature CMV IgG Pos Neg [facility] Specimen Anatomical Collection Method Collection Time Receive d Time (Source) Location / / Volume Laterality Blood specimen 01/24/2014 7:36 AM 014 8:01 (specimen) EDT AM EDT Resulting Agency Comment Spec In Lab Eriberto Melgar MD IMMUNOLOGY ORDERABLES Performing Organization Address City/[facility]/ZIP Code Phon e Number [address] [facility] documented in this encounter Visit Diagnoses Diagnosis Need for prophylactic immunotherapy Status post pancreas transplantation 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 documented in this encounter Care Teams Raimann Machine Operator Relationship Specialty Start Date End Date Anna Mullen MD PCP - General 12/03/10 [address] [place] [address] documented as of this encounter
--- OUTSIDE RECORDS SUMMARY | 2022-03-13 18:31 | XMS_ITS | Encounter Summary ---
:1965 Author Organization [facility] [place] [address] Care Team Providers Name Role Phone Anna Mullen MD Primary Care Provider Encounter Details Date Type Department Care Team Description 11/29/2013 Hospital Encounter [place] [facility] [place]oliosis; [address] [facility] [place] [address] Social History Tobacco Use Types Packs/Day [...] 09/14/2012 mg tablet Dx code :250.60 mycophenolate (CELLCEPT) Take 500 mg by mouth 0 07/31/2014 250 mg capsule 2 times daily. Magnesium Gluconate 27 Take 1 tablet by 0 08/22/2015 mg (500 mg) Tab mouth daily as needed. HYDROmorphone (DILAUDID) Take 2 tablets by 50 tablet 0 03/0 11/201304/30/2014 2 mg tablet mouth every 4 [...] 38.5 Centigrade). Diabetic Supplies, Fax form [facility] 100 each 12 09/02/2013 0 05/10/2014 [employer] [facility] testing supplies 10 times per [...] Priority Date/Time Associated Diagnosis Comme nts XR SCOLIOSIS OR Routine 11/29/2013 8:18 AM Scoliosis Results for this TOTAL SPINE 2 VIEW EDT Back pain procedure are in the results section. documented in this encounter Results XR scoliosis 2 view (11/29/2013 8:18 AM EDT) Anatomical Region Laterality Modality C-spine, T-spine, L-spine N/A Radiographic I maging Specimen (Source) Anatomical Collection Method Collection Time Re ceived Time Location / / Volume Laterality 11/29/2013 8:18 AM EDT Narrative 11/29/2013 8:57 AM EDT Examination SCOLIOSIS 2 VIEW Clinical History Scoliosis ?? Comparison Radiographs of the spine 12/25/2010. Technique Standing AP and lateral views of the o racolumbar spine. Findings As on the prior exam, there is a dextroc onvex lumbar scoliosis, with Chau angle of 20 degrees measured from the superior endplate of T12 through the inferior endplate of L4. ??Curve apex is at L2-L3 . This results in leftward coronal imbalance of approximately 6.5 cm measur ed from a shaheed line drawn from the center of the C7 vertebral body. ??There is also borderline positive sagittal imbalance on the lateral projection of a pproximately 2 cm. ?? There are multilevel disc degenerative c hanges and spondylosis, but no definite loss of vertebral body height or spondyl olisthesis. ??No significant pelvic tilt. ??A small oval sclerotic focus in the left femoral neck likely represents a benign bone island. Impression Dextroconvex lumbar scoliosis with Chau angle of 20 degrees, not significantly changed from prior exam of 2010. Procedure Note Christian Hoover MD - 11/29/2013Formatti ng of this note might be different from the original. Examination SCOLIOSIS 2 VIEW Clinical History Scoliosis Comparison Radiographs of the spine 12/25/2010. Technique Standing AP and lateral views of the o racolumbar spine. Findings As on the prior exam, there is a dextroc onvex lumbar scoliosis, with Chau angle of 20 degrees measured from the superior endplate of T12 through the inferior endplate of L4. Curve apex is at L2-L3. This results in leftward coronal imbalance of approximately 6.5 cm measur ed from a shaheed line drawn from the center of the C7 vertebral body. There i s also borderline positive sagittal imbalance on the lateral projection of a pproximately 2 cm. There are multilevel disc degenerative c hanges and spondylosis, but no definite loss of vertebral body height or spondyl olisthesis. No significant pelvic tilt. A small oval sclerotic focus in th e left femoral neck likely represents a benign bone island. Impression Dextroconvex lumbar scoliosis with Chau angle of 20 degrees, not significantly changed from prior exam of 2010. Jesus Diana MD IMG DX ORDERABLES documented in this encounter Visit Diagnoses Diagnosis Scoliosis Scoliosis (and kyphoscoliosis), idiopath ic Back pain Backache, unspecified documented in this encounter Care Teams Slipper Maker Relationship Specialty Start Date End Date Anna Mullen MD PCP - General 12/03/10 [address] [place] [address] documented as of this encounter
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
--- OUTSIDE RECORDS SUMMARY | 2022-03-13 18:31 | XMS_ITS | Encounter Summary ---
:1965 Author Organization [facility] [place] [address] Care Team Providers Name Role Phone Anna Mullen MD Primary Care Provider Reason for Visit Reason Onset Date Comments Medication Refill 11/30/2013 Encounter Details Date Type Department Care Team Description 11/30/2013 Refill Solid Organ Transplant at Eriberto Emery MD [facility] Unique pham [place] [address] [place] [address] [phone] (Wo rk) Social History Tobacco Use Types [...] on filedocumented in this encounter Care Teams Fashion Illustrator Relationship Specialty Start Date End Date Anna Mullen MD PCP - General 12/03/10 [address] [place], [place] [address] documented as of this encounter
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
--- OUTSIDE RECORDS SUMMARY | 2022-03-13 18:31 | XMS_ITS | Encounter Summary ---
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 [address] [place] [address] documented as of this encounter
--- OUTSIDE RECORDS SUMMARY | 2022-03-13 18:31 | XMS_ITS | Encounter Summary ---
:1965 Author Organization [facility] Address [place] [id number] Care Team Providers Name Role Phone Anna Mullen MD Primary Care Provider Reason for Visit Reason Comments Right Elbow Pain elbow pain Encounter Details Date Type Department Care Team Description 01/10/2014 [place] [facility] [place], Ulnar neuropathy, [facility] MD damon (Primary Dx) [place] [address] [place] [address] ORTHOPAEDIC SURGERY [place] [address] Social History Tobacco Use Types Packs/Day Years Used Date Never Smoker Smokeless Tobacco: Never Used Alcohol Use Standard Drinks/Week Comments No 0 (1 standard drink = 0.6 oz pure alcoho l) history of abuse, stopped 1996 Sex Assigned at Date Recorded Male 05/29/2021 11:28 PM EDT documented as of this encounter Last Filed Vital Signs Vital Sign Reading Time Taken Comments Blood Pressure 130/74 01/10/2014 1:26 PM EDT Pulse 67 01/10/2014 1:26 PM EDT Temperature - - Respiratory Rate - - Oxygen Saturation - - Inhaled Oxygen Concentration - - Weight 93.9 kg (207 lb) 01/10/2014 1:26 PM EDT Height 182.9 cm (6') 01/10/2014 1:26 PM EDT Body Mass Index 28.07 01/10/2014 1:26 PM EDT documented in this encounter Progress Notes Leena Nicholson MD - 01/24/2014 7:08 AM EDT Attending addendum: The preceeding portion of this note was written by Karlee Rouse PA-C. I personally saw and evaluated the patient as well and I agree with the assessment and plan documented above. Leena Nicholson M.D., M.S. Model Making Supervisor of Orthopaedic Surgery Shoulder, Elbow, and Sports Medicine Department of Orthopaedic Surgery [place], [place] [phone] Karlee Rouse PA - 01/10/2014 5:06 PM EDT PATIENT NAME: Richard Hsu AGE: 48 y.o. MR#: [id number] DATE OF VISIT: 01/10/2014 DATE OF INJURY/ONSET: Summer 2012 STAFF: Dr. Nicholson CHIEF COMPLAINT: follow up for right cubital tunnel syndrome HISTORY OF PRESENT ILLNESS: Mr. Hsu is a 48 y.o. year old male who comes into clinic today for follow up regarding the right elbow. He was last evaluated in October was found to have EMG proven severe ulnar neuropathy at the elbow. He continued to have some residual median nerve motor latency changes after prior carpal tunnel release. His symptoms were primarily in the ulnar nerve distribution. He had recently undergone pancreas transplant and was unable to proceed with elective surgery at thattime. He elected to proceed with a course of splinting. He states that he has noticed a dramatic improvement in his paresthesias since splinting. He is no longer using the rigid brace regularly, but continues to modify his activities to avoid pressure on the cubital tunnel. He continues to have some atrophy over the first web space, but finds that his manager policy has improved. PHYSICAL EXAM: Mr. Hsu is alert and oriented. He appears in no acute discomfort and is resting comfortably in the exam room. Inspection: No erythema, ecchymosis, or swelling over the elbow. First web space atrophy persists. Palpation: Cubital tunnel is nontender. ROM/Strength: Continues to have full elbow, wrist, and hand range of motion. FDS, FDP, EPL, FPL tendons are intact. He does not have any obvious intrinsic weakness despite having noticeable atrophy. Orthopedic testing: Negative Tinel's at the cubital tunnel. Negative elbow flexion test. Neurovascular: Sensation has returned to the ulnar nerve distribution. No median nerve symptoms on exam today. Good distal perfusion. RADIOLOGICAL STUDIES: No new studies ASSESSMENT: Resolving right ulnar neuropathy PLAN: Dr. Nicholson also evaluated and spoke with the patient at today's visit. He is pleased with his improvement with nonoperative management. He states that he is currently scheduled to undergo back surgery in May. At this point he does not feel that he would need to consider surgical treatment for his cubital tunnel syndrome. He continues to have some atrophy of his ulnar intrinsics which we wouldlike to monitor. We discussed that his strength and dexterity may continue to improve over time, butit difficult to say whether or not the muscle bulk will return to normal. He will continue with periodic splinting and activity modification as needed in the meantime. If his symptoms were to return orworsen we may need to consider cubital tunnel decompression in the future. He will return for followup after he has recovered from his spine surgery for reevaluation. The patient understands to contact us if they have any other questions or concerns. The above documentation was completed using Arav voice recognition software. documented in this encounter Plan of Treatment Not on filedocumented as of this encounter Visit Diagnoses Diagnosis Ulnar neuropathy, right - Primary documented in this encounter Care Teams Chemical Research Worker Relationship Specialty Start Date End Date Anna Mullen MD PCP - General 12/03/10 [address] [place] [address] documented as of this encounter
--- OUTSIDE RECORDS SUMMARY | 2022-03-13 18:31 | XMS_ITS | Encounter Summary ---
:1965 Author Organization [facility] [place] [address] Care Team Providers Name Role Phone Anna Mullen MD Primary Care Provider Encounter Details Date Type Department Care Team Description 11/21/2013 External Results Solid Organ Transplant Michael Smiley I, at [facility] [place] [address] [place] [id number] [phone] (Wo rk) Social History Tobacco Use Types [...] Procedure Name Priority Date/Time Associated Diagnosis Comme [facility] TRANSPLANT Routine 11/18/2013 Results fo r this FOLLOW UP LABS EXTERNAL proc edure are in the RESULTS PANEL results sectio n. documented in this encounter Results (ABNORMAL) Transplant: Follow up lab request - External Results (11/18/2013) [facility] Method Time Signature WBC 3.08 (External Lab) Hemoglobin 12.3 13.5 - (External 17.5 Lab) Hematocrit 38.4 41.0 - (External 53.0 Lab) Amylase 42 25 - 110 (External Lab) Lipase 120 0 - 53 (External Lab) BUN 13 (External Lab) Creatinine 1.1 (External Lab) Tacrolimus Lvl (External Lab) ABORh Type Narrative This result has an attachment that is no t available. Historical Provider MD CHEMISTRY ORDERABLES documented in this encounter Visit Diagnoses Not on filedocumented in this encounter Care Teams Cycling Instructor Relationship Specialty Start Date End Date Anna Mullen MD PCP - General 12/03/10 [address] [place] [address] documented as of this encounter
--- OUTSIDE RECORDS SUMMARY | 2022-03-13 18:31 | XMS_ITS | Encounter Summary ---
:1965 Author Organization [facility] [place] [address] Care Team Providers Name Role Phone Anna Mullen MD Primary Care Provider Encounter Details Date Type Department Care Team Description 12/02/2013 Orders Only Solid Organ Transplant at [facility] I, [place] [address] [place] [address] [phone] Social History Tobacco Use Types Packs/Day Years [...] on filedocumented in this encounter Care Teams Gas Inspector Relationship Specialty Start Date End Date Anna Mullen MD PCP - General 12/03/10 [address] [place] [address] documented as of this encounter
--- OUTSIDE RECORDS SUMMARY | 2022-03-13 18:31 | XMS_ITS | Encounter Summary ---
:1965 Author Organization [facility] [address] Care Team Providers Name Role Phone Anna Mullen MD Primary Care Provider Reason for Visit Reason Comments Diabetes Type 1 Encounter Details Date Type Department Care Team Description 10/28/2013 Office Visit Endocrinology at [facility] Arlyn Coles, H/O pancreas transplant; [facility] [place] [address] CENTER [phone] ENDOCRINOLOGY DEPT. [place], [place] [address] Social History Tobacco Use Types [...] Sign Reading Time Taken Comments Blood Pressure 142/90 10/28/2013 8:35 AM EST Pulse 79 10/28/2013 8:35 AM EST Temperature - - Respiratory Rate - - Oxygen Saturation - - Inhaled Oxygen Concentration - - Weight 95.8 kg (211 lb 3.2 oz) 10/28/2013 8:35 AM EST Height 181.6 cm (5' 11.5) 10/28/2013 8:35 AM EST Body Mass Index 29.05 10/28/2013 8:35 AM EST documented in this encounter Progress Notes Divya Coles MD - 10/26/2013 8:38 PM EST PRIMARY CARE PROVIDER: Anna Mullen MD CC: Here for f/u of type 1 DM -Pancreas transplant 08/08/13 Date of Dx:1974 -pancreas transplant 08/08/13! Regimen ____ oral agents only ____ basal insulin ____insulin/pump Diagnosis codes 250.03 _x__ Type 1 250.02 ____Type 2 Glucose test strip brand: one touch Number of Tests prescribed per day ___ 2 ___ 3 _x__ 4 ___ 5-8 ___>8 Prescriber: _ MD Radha Harkins ARNP _ Lise Richards MD _ Nickie Berger MD _x Sandra Coles MD Justification for more than 3 tests a day ___x_ prevent severe hypoglycemia ____ prevent severe hyperglycemia ____ widely fluctuating blood sugars ____ overnight hypoglycemia Duration of need ___ lifetime until ___/___/___ Last Hga1c 7.4, 09/13; 7.9%, 02/10; 7.6%,09/12 DIABETES REGIMEN:nothing post treansplant COMPLICATIONS: Dentist-05/13 , Eye doctor-03/12- . Microalbumin less than 14, creatinine 1.05, 10/14. He has gastroparesis getting better, but no peripheral neuropathy. 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 Has nonocclusive disease with slightly decreased ejection fraction of 52%. Lipids- total cholesterol 124, 10/14, HDL 52, 09/12, and LDL 73, 09/12. DIABETIC HEALTH MAINTENANCE: Beta-Sigrid: no. Aspirin: 325 mg a day. ARB: no. Statin: no. Flu Shot: 2012. Pneumovax: [address] Mullen.. He is a nonsmoker. TSH 4.97, 02/10, on levothyroxine 175 mg a day.- will increase to levothyroxine 200 mcg/d and separate from magnesium. Brant has been doing well. He had his pancreas transplant on 08/08/2013. He has been off insulin since then. Checks his blood sugars four times a day, they run 95 to 125, very rarely he will have 160, even 190. After he eats, he has had a lot of vomiting and dehydration. He is eating about the same, usually three meals and three snacks. Exercise is limited because of his back pain. Complication evaluation is up-to-date. PAST MEDICAL HISTORY: Type 1 diabetes for 27 years with gastroparesis, hypertension, migraine headaches, stroke at age 11 with left hemiplegia, radicular back pain, and right leg pain, hypothyroidism, history of depression, ASCVD, erectile dysfunction, and chronic immunosuppression, post pancreas transplant. PAST SURGICAL HISTORY: Shoulder, carpal tunnel release, appendectomy, pancreas transplant. Current Outpatient Prescriptions on File Prior to Visit Medication Sig Dispense Refill ??? cephALEXin (KEFLEX) 500 mg capsule Take [...] Centigrade). 30 tablet ??? Diabetic Supplies, [place] [place] to [facility] for testing supplies 10 times per [id number] each 12 ??? levothyroxine (SYNTHROID) 200 mcg tablet Take 1 tablet by mouth daily. 90 tablet 4 ??? sildenafil (VIAGRA) 100 mg tablet Take 1 tablet by mouth as needed for Erectile Dysfunction. 90 day supply Dx code :250.60 60 tablet 6 ??? citalopram (CELEXA) 20 mg tablet Take 40 mg by mouth daily. ??? aspirin 325 mg tablet Take by mouth daily. Allergies Allergen Reactions ??? Nexium (Esomeprazole Magnesium) Diarrhea Any acid reflux medication causes severe diarrhea ??? Prilosec (Omeprazole Magnesium) Diarrhea ??? Reglan (Metoclopramide Hcl) TD ??? Simvastatin SOCIAL HISTORY: He is , two biologic children, two adopted children, two stepchildren. 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 He is a nonsmoker and quit drinking in 1996. COMPLETE REVIEW OF SYSTEMS: He has some pyrosis, nausea about two or three times a week, mostly finds it is related to his meds. He has chronic back pain and some paresthesias, particularly in the right leg. Little bit cold. His gastroparesis symptoms are better since his pancreas transplant. The remainder of the review of systems is negative. PHYSICAL EXAMINATION: Blood pressure 142/90, pulse 79, weight 211 pounds, decreased almost 25 pounds since his surgery. In general, he looks well. His skin is smooth, warm, and dry. No ulcerations. Cardiovascular: 2+ pulses. No edema. On neurologic exam, slight decreased light touch sensation in the left foot. His left great toe is enlarged and deformed ever since his stroke. Psych: Mood and affect appropriate. We will get a hemoglobin A1c and TSH with his next labs. IMPRESSION: 1. Type 1 diabetes, resolved, post pancreas transplant. We will continue to monitor his glucose. We will hemoglobin A1c in a week or two. We will see him in followup in about six months. 2. Hypothyroidism. We had increased his levothyroxine at his last visit. We will check TSH with his blood draw in a week or two and we will see him in followup in six months. PLAN: 1. Hemoglobin A1c and TSH with next blood draw. 2. Follow up in six months with hemoglobin A1c in the quick draw lab. documented in this encounter Plan of Treatment Not on filedocumented as of this encounter Results (ABNORMAL) TSH (05/31/2014 7:21 AM EDT) P athologist Signature TSH 0.22 (L) 0.27 - 4.20 CERNER mcIU/mL [facility] Specimen Anatomical Collection Method Collection Time Receive d Time (Source) Location / / Volume Laterality Blood specimen 05/31/2014 7:21 AM 014 7:33 (specimen) EDT AM EDT Resulting Agency Comment Spec In Lab Divya Coles MD CHEMISTRY ORDERABLES Performing Organization Address City/State/[place] [address] CERNER MILLENNIUM (ABNORMAL) Hemoglobin A1c (05/31/2014 7:21 AM EDT) Analysis Performed At Patho logist Time Signature Hemoglobin A1C 5.7 (H) <=5.6 % CERNER MILLENNIUM Comment: Reference Range: 4.3 ? 5.6% 5.7 ? [...] Mellitus, Diabetes Care 2013; 36: Suppl. 1, G67-24 Est Avg Gluc 117 mg/dL CERNER MILLENNIUM Comment: eAG equivalents for HbA1c percentages: HbA1c(%) ?eAG(mg/dL) 6.0 ?126 6.5 ?140 7.0 ?154 7.5 ?169 8.0 ?183 8.5 ?197 9.0 ?212 9.5 ?226 10.0 ? 240 Limitations: The eAG calculation has not been validated on women, individuals below 18 years old and above 70 years old, and individuals with hemoglobinopathies. Additional resources are available on [place] website: [email or web address]/[employer] Technologyadacalc Edinson GRISSOM, Nathaniel J, Ari R, et al. ??Tr anslating the A1C assay into estimated average glucose values. ??Diabetes Care 2008:31(8):5670-3042. Specimen Anatomical Collection Method Collection Time Receive d Time (Source) Location / / Volume Laterality Blood specimen 05/31/2014 7:21 AM 014 7:33 (specimen) EDT AM EDT Resulting Agency Comment Spec In Lab Divya Coles MD CHEMISTRY ORDERABLES Performing Organization Address City/State/[place] [address] HOS[address]ITAL LABORATORY [facility] documented in this encounter Visit Diagnoses Diagnosis H/O pancreas transplant 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 Hypothyroidism Unspecified hypothyroidism documented in this encounter Care Teams Almond Blancher Operator Relationship Specialty Start Date End Date Anna Mullen MD PCP - General 12/03/10 [address] [place] [address] documented as of this encounter
--- OUTSIDE RECORDS SUMMARY | 2022-03-13 18:31 | XMS_ITS | Encounter Summary ---
:1965 Author Organization [facility] [place] [address] Care Team Providers Name Role Phone Anna Mullen MD Primary Care Provider Encounter Details Date Type Department Care Team Description 01/06/2014 Hospital Encounter MRI at [facility], DR FRYE LBP radiating to right leg; [facility] Jesus Diana MD [facility] [place] [address] [place] [phone] Social History Tobacco Use Types Packs/Day Years [...] 38.5 Centigrade). Diabetic Supplies, Fax form to [facility] 100 each 12 09/02/2013 0 05/10/2014 Miscellan. [facility] for testing supplies 10 times per day citalopram (CELEXA) 20 Take 40 mg by mouth 0 08/06/2016 mg tablet daily. aspirin 325 mg tablet Take 325 mg by mouth 0 05/31/2014 daily. documented as of this encounter Progress Notes Divya South RN - 01/03/2014 1:37 PM EDT VIR MRI PRE-SEDATION ASSESSMENT NOTE NAME: Richard Hsu AGE: 48 y.o. : 1965 Male [phone] (home) [phone] (work) No relevant phone numbers on file. PCP SPECIAL DELIVERY CARRIER ANNA MULLEN MD None Allergies Allergen Reactions ??? Nexium (Esomeprazole Magnesium) Diarrhea Any acid reflux medication causes severe diarrhea ??? Prilosec (Omeprazole Magnesium) Diarrhea ??? Reglan (Metoclopramide Hcl) TD ??? Simvastatin Date/Time of call: January 03, 2014/1:38 PM/ PREVIOUS MRI SCAN? Yes, multiple HEIGHT: 6' WEIGHT: 200 lbs SCHEDULED SCAN:MRI Lumbar / Thoracic Spine SUBJECTIVE: I have had MRIs before but they were very short. I tend to be claustrophobic and so they scheduled me to take some pills as this MRI is rather long. ASSESSMENT: Patient is appropriate for PO sedation. PLAN: Patient has had a pancreas transplant. Per his request, Dr. Melgar's office/ health and wellness coordinator were contacted to be sure ativan or valium were safe for him and would not interfere with his other meds. The health and wellness coordinator stated that either med was safe for this patient. Ativan per protocol. PRIOR SCAN DATE/S SEDATION TYPE SUCCESSFUL 01/02/11 MRI Lumbar spine None Yes 01/13/12 MRI/ MRA None Yes 12/23/12 MRI Lumbar Spine None Yes 01/06/14 MRI Lumbar and Thorasic Ativan 2 mg PO had a hard time last 10 minutes ,Medication wore off. Suggest we try Valium next time as it will last longer. PT WILL ARRIVE 1 HR. BEFORE SCHEDULED SCAN AND HAVE A MACHINE CLOTH TRIMMER AVAILABLE. PT STATED TO SOCIAL SCIENCE MANAGER THAT THE SEDATION WAS EFFECTIVE FOR SCAN: [id number]___[id number] COMMENTS: See Above This patient has been informed that they require a sales driver to drive them home after this procedure. In the absence of a sales driver, IR will not be able to perform this procedure and will need to reschedule.Pt verbalized understanding of these instructions during the pre-procedure education via phone. documented in this encounter Miscellaneous Notes Miscellaneous - Provider, Scanning - 01/12/2014 9:46 AM EDT documented in this encounter Plan of Treatment Not on filedocumented as of this encounter Procedures Procedure Name Priority Date/Time Associated Diagnosis Comme nts MRI LUMBAR SPINE Routine 01/06/2014 1:10 PM LBP radiating to R esults for this WITHOUT CONTRAST EDT right leg procedure are in Stroke-like symptoms the res ults section. documented in this encounter Results MRI lumbar spine without contrast (01/06/2014 1:10 PM EDT) Anatomical Region Laterality Modality L-spine Magnetic Resonance Specimen (Source) Anatomical Collection Method [...] mus culoskeletal systems documented in this encounter Administered Medications Inactive Administered Medications - up to 3 most recent administrations Medication Order MAR Action Action Date Dose Rate Site LORazepam (ATIVAN) tablet 1 mg Given 01/06/2014 11:22 AM EDT 2 mg 1 mg, Oral, EVERY 30 MIN PRN, 2 doses, Starting on Thu01/06/14 at 0836, Until 01/07/14 at 0220, Anxiety, Angio/IR (Day of Procedure), Timed documented in this encounter Care Teams Bologna Maker Relationship Specialty Start Date End Date Anna Mullen MD PCP - General 12/03/10 [address] [place] [address] documented as of this encounter
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
--- OUTSIDE RECORDS SUMMARY | 2022-03-13 18:31 | XMS_ITS | Encounter Summary ---
:1965 Author Organization [facility] [place] [address] Care Team Providers Name Role Phone Anan Mullen MD Primary Care Provider Encounter Details Date Type Department Care Team Description 10/18/2013 Hospital Encounter [place] [facility] [place] in right elbow [address] [facility] [place] [id number] Social History Tobacco Use Types Packs/Day [...] 6 09/14/2012 mg tablet Dx code :250.60 traMADol (ULTRAM) 50 mg Take 100 mg by mouth 0 02/22/2016 tablet 2 times daily. CELLCEPT 250 mg capsule Take 3 capsules by 540 capsule 3 11/29/2013 mouth 2 times daily. S/P Pancreas Transplant 08/28/2013 Dx V42.83 ondansetron (ZOFRAN) 4 Take 1 tablet by 90 tablet 11 09/27/2 014 10/08/2014 mg tablet mouth every 8 hours as needed for Nausea. PROGRAF 1 mg capsule Take 3 mg in PM and 360 capsule 3 09/2010/28/2013 2 mg in AM S/P Pancreas transplant V42.83 potassium phosphate, Take 500 mg by mouth [...] 38.5 Centigrade). Diabetic Supplies, Fax form to [facility] 100 each 12 09/02/2013 0 05/10/2014 [employer] [facility] for testing supplies 10 times per day levothyroxine Take 1 tablet by 90 tablet 4 02/07/201312/27 (SYNTHROID) 200 mcg mouth daily. tablet citalopram (CELEXA) 20 Take 40 mg by mouth 0 08/06/2016 mg tablet daily. hydrOXYzine (VISTARIL) Take by mouth 2 0 12/25/19 11 10/28/2013 25 mg capsule times daily as needed. aspirin 325 mg tablet Take 325 mg by mouth 0 05/31/2014 daily. documented as of this encounter Plan of Treatment Not on filedocumented as of this encounter Procedures Procedure Name Priority Date/Time Associated Diagnosis Comme nts XR ELBOW 3 VIEW Routine 10/18/2013 7:38 AM Pain in right elbow Results for this COMPLETE EST procedure are i n the results section. documented in this encounter Results XR elbow 3 view complete (10/18/2013 7:38 AM EST) Anatomical Region Laterality Modality Elbow N/A Radiographic Imaging Specimen (Source) Anatomical Collection Method Collection Time Re ceived Time Location / / Volume Laterality 10/18/2013 7:38 AM EST Narrative 10/18/2013 10:36 AM EST Examination ELBOW 3 VIEWS COMPLETE/RIGHT Clinical History R ELBOW Comparison None. Technique 3 views of the right elbow in the mid. Findings Normal bony alignment and mineralization . ??No fractures. ??No elbow joint effusion. Impression 1. ??No acute osseous abnormalities invo lving the right elbow. Film and interpretation reviewed by the attending Procedure Note Fabiana Sosa MD - 10/18/2013Formatt ing of this note might be different from the original. Examination ELBOW 3 VIEWS COMPLETE/RIGHT Clinical History R ELBOW Comparison None. Technique 3 views of the right elbow in the mid. Findings Normal bony alignment and mineralization . No fractures. No elbow joint effusion. Impression 1. No acute osseous abnormalities involv ing the right elbow. Film and interpretation reviewed by the attending Leena Nicholson MD IMG DX ORDERABLES documented in this encounter Visit Diagnoses Diagnosis Pain in right elbow Pain in joint, upper arm documented in this encounter Care Teams Anchor Tacker Relationship Specialty Start Date End Date Anna Mullen MD PCP - General 12/03/10 [address] [place] [address] documented as of this encounter
--- OUTSIDE RECORDS SUMMARY | 2022-03-13 18:31 | XMS_ITS | Encounter Summary ---
:1965 Author Organization [facility] [place] [address] Care Team Providers Name Role Phone Anna Mullen MD Primary Care Provider Reason for Visit Reason Comments Low Back Pain Encounter Details Date Type Department Care Team Description 11/29/2013 [facility] Visit [facility], LBP ra diating to right leg; [place] Stroke-like symptoms [facility] [address] [place] [facility] [id number] [address] [phone] Social History Tobacco Use Types Packs/Day Years Used Date Never Smoker Smokeless Tobacco: Never Used Alcohol Use Standard Drinks/Week Comments No 0 (1 standard drink = 0.6 oz pure alcoho l) history of abuse, stopped 1996 Sex Assigned at Date Recorded Male 05/29/2021 11:28 PM EDT documented as of this encounter Progress Notes [facility] MD - 11/29/2013 11:10 AM EDT I have today reviewed this 48-year-old gentleman whom I've seen about a year back with low back painand right leg pain. 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 He has some residual wasting of left leg and also left feet and ankle weakness thathe cannot stand or walk on heels and toes on the left side but he is reasonably normal function, andhe is very active. Because he was waiting for pancreatic transplant we did not do any surgery last year but he has now received the pancreatic transplant and is doing very well from the same he comes prepared in his mindfor surgical intervention for ongoing pain and weakness down the right leg. Symptomatically his right leg pain are equally bad if not little worse and it did not improve with lumbar epidural steroid injection that was prescribed last year. On examination he has weakness and wasting in the left lower extremities from pre-existing CVA, but his Rt LE is now symptomatic, right knee tends to give way at times. He could walk on heels and toes on the right feet and ankle but he describes his right leg pain involving both L5 and S1 dermatomes. His scoliosis x-ray done recently shows he has a right convex lumbar scoliosis and the MRI scan donelast year shows multiple level lumbar disc degeneration but more important feature was L4-5 disc degeneration with disc herniation as well as facet hypertrophy. This was causing more left-sided foraminal stenosis at L4- 5 on the other hand his symptoms are more towards the right leg giving way at the knees and also pain down in right L5 and S1 distribution. He certainly has right L5-S1 foraminal stenosis because of the fractional curve in the lumbosacral junction concave towards right. On neurological examination he has brisk reflexes in her right leg as well, but left side is more brisk. In upper extremity right arm has normal reflexes but brisk reflexes in the left upper extremity. Assessment: It is difficult to explain brisk reflexes in right ankle and right knee despite possibility of the radiculopathy and therefore I have asked for a repeat MRI scan including both thoracic andlumbar spine to rule out any significant disc herniation higher up in the thoracic spine that could be causing right leg weakness. He will have the MRI scan and come prepared for surgical decision-making as appropriate at that time. He had a scoliosis x-ray done today [...] required a very long spinal instrumented fusion. FU with MRI scan. NB: The above note was dictated using [email or web address] voice recognition program 15 min of this 25 min visit was spent in counseling her regarding different Rx options and treatmentplan as described above. documented in this encounter Plan of Treatment Not on filedocumented as of this encounter Results MRI thoracic spine without [...] report. [facility] MD IMG MRI ORDERABLES MRI lumbar spine without contrast (01/06/2014 1:10 [...] symptoms involving nervous and mus culoskeletal systems LBP radiating to right leg Lumbago Stroke-like symptoms Other symptoms involving nervous and mus culoskeletal systems LBP radiating to right leg Lumbago Stroke-like symptoms Other symptoms involving nervous and mus culoskeletal systems documented in this encounter Care Teams Product Scientist Relationship Specialty Start Date End Date Anna Mullen MD PCP - General 12/03/10 [address] [place] [address] documented as of this encounter
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
--- OUTSIDE RECORDS SUMMARY | 2022-03-13 18:32 | XMS_ITS | Encounter Summary ---
:1965 Author Organization [facility] Address [address] [place] [address] Care Team Providers Name Role Phone Anna Mullen MD Primary Care Provider Reason for Visit Reason Onset Date Comments Pancreas Transplant Follow-up Patient Not Seen 10/17/2013 Encounter Details Date Type Department Care Team Description 10/14/2013 Office Visit Solid Organ Eriberto Melgar Need for prophylactic immunotherapy; Transplant at [facility] MD Arlyn Status post pancreas transplantation; [facility] PAT IENT NOT SEEN [place] [id number] [place] [address] [phone] Social History Tobacco Use Types Packs/Day Years Used Date Never Smoker Smokeless Tobacco: Never Used Alcohol Use Standard Drinks/Week Comments No 0 (1 standard drink = 0.6 oz pure alcoho l) history of abuse, stopped 1996 Sex Assigned at Date Recorded Male 05/29/2021 11:28 PM EDT documented as of this encounter Progress Notes Iraj Smiley I - 10/17/2013 8:06 PM EST This patient was not seen in this encounter. documented in this encounter Plan of Treatment Not on filedocumented as of this encounter Results (ABNORMAL) Urinalysis with microscopic (10/18/2013 7:37 AM EST) [facility] Smarty Ring Method Time Signature Glucose UA Negative Negative [...] UA Clear Clear CERNER MILLENNIU M Spec [place] UA 1.022 1.002 - 1.030 CERNER MIL [...] Organization Address City/State/ZIP Code Phon e Number [place] [phone] CERNER MILLENNIUM CMV PCR, Quantitative (10/18/2013 7:28 AM EST) [facility] Smarty Ring Method Time Signature CMV DNA PCR Undetected Undetected CERNER Quant IU/mL MILLENNIUM Comment: Result in log IU/mL is Undetected. The quantification range of this assay i s 137 to 9,100,000 IU/mL (2.14 log to 6.96 log IU/mL) with a limit of detection at 91 IU/mL (1.96 log IU/mL). Testing was performed by the [employer] AmpliPrep/ARNAUD T aqMan CMV Test ([employer] Test Performed by: [address], [place] [address] Supervisor [employer]: Sarita Beach, Ph. D. Specimen Anatomical Collection Method Collection Time Receive d Time (Source) Location / / Volume Laterality Blood specimen 10/18/2013 7:28 AM 014 2:47 (specimen) EST PM EST Resulting Agency Comment Spec In Lab Eriberto Melgar MD IMMUNOLOGY ORDERABLES Performing Organization Address City/[facility] Phon e Number [address] CERNER MILLENNIUM Amylase (10/18/2013 7:28 AM EST) athologist Signature Amylase 52 28 - 100 CERNER unit/L MILLENNIUM Specimen Anatomical Collection Method Collection Time Receive d Time (Source) Location / / Volume Laterality Blood specimen 10/18/2013 7:28 AM 014 7:32 (specimen) EST AM EST Resulting Agency Comment Spec In Lab Eriberto Melgar MD CHEMISTRY ORDERABLES Performing Organization Address City/[facility] Code Phon e Number [address] CERNER MILLENNIUM Lipase (10/18/2013 7:28 AM EST) athologist Signature Lipase 27 0 - 60 CERNER unit/L MILLENNIUM Specimen Anatomical Collection Method Collection Time Receive d Time (Source) Location / / Volume Laterality Blood specimen 10/18/2013 7:28 AM 014 7:32 (specimen) EST AM EST Resulting Agency Comment Spec In Lab Eriberto Melgar MD CHEMISTRY ORDERABLES Performing Organization Address City/[facility] Phon e Number [address] CERNER MILLENNIUM Comprehensive metabolic panel (non-fasting) (10/18/2013 7:28 AM EST) P athologist Signature Glucose Lvl 131 60 - 199 CERNER mg/dL [facility] Comment: Diabetes: >=200 mg/dL plus symp toms BUN 14 10 - 20 mg/dL CERNER MILLENNIU M Creatinine 1.05 0.80 - 1.50 mg/dL CERNER MILL ENNIUM Comment: Please note that the pediatric reference intervals supplied above were not validated at [facility]. Results from pediatri c patients should be [...] ORDERABLES Performing Organization Address City/[facility]/ZIP [facility] Phon e Number [address] CERNER MILLENNIUM Magnesium (10/18/2013 7:28 AM EST) P athologist Signature Magnesium 0.74 0.69 - 1.07 CERNER mmol/L MILLENNIUM Specimen Anatomical Collection Method Collection Time Receive d Time (Source) Location / / Volume Laterality Blood specimen 10/18/2013 7:28 AM 014 7:32 (specimen) EST AM EST Resulting Agency Comment Spec In Lab Eriberto Melgar MD CHEMISTRY ORDERABLES Performing Organization Address City/[facility] Code Phon e Number [address] CERNER MILLENNIUM Phosphorus (10/18/2013 7:28 AM EST) P athologist Signature Phosphorus 2.8 2.5 - 4.5 CERNER mg/dL MILLENNIUM Specimen Anatomical Collection Method Collection Time Receive d Time (Source) Location / / Volume Laterality Blood specimen 10/18/2013 7:28 AM 014 7:32 (specimen) EST AM EST Resulting Agency Comment Spec In Lab Eriberto Melgar MD CHEMISTRY ORDERABLES Performing Organization Address City/[facility]/[place] [address] CERNER MILLENNIUM Uric acid (10/18/2013 [...] Organization Address City/State/[place] [address] CERNER MILLENNIUM Tacrolimus level (10/18/2013 7:28 AM EST) athologist Signature Tacrolimus Lvl 9.5 ng/mL CERNER MILLENNIUM Comment: Trough therapeutic: 5-15 ng/mL Specimen Anatomical Collection Method Collection Time Receive d Time (Source) Location / / Volume Laterality Blood specimen 10/18/2013 7:28 AM 014 (specimen) EST 12:08 PM EST Resulting Agency Comment Spec In Lab Eriberto Melgar MD CHEMISTRY ORDERABLES Performing Organization Address City/[facility]/[place] [address] CERNER MILLENNIUM Reticulocyte Count (10/18/2013 7:28 AM EST) athologist Signature Retic Ct % [...] Organization Address City/State/[place] [address] CERNER MILLENNIUM (ABNORMAL) CBC (with Diff) (10/18/2013 7:28 AM EST) athologist Signature WBC 4.0 4.0 - 10.0 [...] Melgar MD HEMATOLOGY ORDERABLES Performing Organization Address City/State/[facility] Code Phon e Number [address] CERNER MILLENNIUM Cholesterol, total (10/18/2013 7:28 AM EST) athologist Signature Chol, Total 124 <=199 mg/dL CERNER MILLENNIUM Comment: Recommendations of the NCEP Adult Treatm ent Panel for the following risk cutoff thresholds for the [place] popul[place] n: Desirable: <200 mg/dL Borderline High: 200-239 mg/dL High: > or = 240 mg/dL Specimen Anatomical Collection Method Collection Time Receive d Time (Source) Location / / Volume Laterality Blood specimen 10/18/2013 7:28 AM 014 7:32 (specimen) EST AM EST Resulting Agency Comment Spec In Lab Eriberto Melgar MD CHEMISTRY ORDERABLES Performing Organization Address City/[facility] [place] [address] CERNER MILLENNIUM documented in this encounter Visit Diagnoses Diagnosis Need for prophylactic immunotherapy Status post pancreas transplantation 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 PATIENT NOT SEEN documented in this encounter Care Teams Licensed Guide Relationship Specialty Start Date End Date Anna Mullen MD PCP - General 12/03/10 [address] [place] [address] documented as of this encounter
--- OUTSIDE RECORDS SUMMARY | 2022-03-13 18:32 | XMS_ITS | Encounter Summary ---
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
--- OUTSIDE RECORDS SUMMARY | 2022-03-13 18:32 | XMS_ITS | Encounter Summary ---
:1965 Author Organization [facility] Address [address] [place] [address] Care Team Providers Name Role Phone Anna Mullen MD Primary Care Provider Reason for Visit Reason Comments Pancreas Transplant Follow-up 08/28/2013 Encounter Details Date Type Department Care Team Description 09/06/2013 Office Visit Solid Organ Nasrin, Need for prophy lactic immunotherapy; Transplant at [facility] Kj Rey MD Status post pancreas transplantation [facility] [address] [place] [address] [place] [address] [phone] (Wo rk) Social History Tobacco Use Types [...] Sign Reading Time Taken Comments Blood Pressure 129/59 09/06/2013 8:33 AM EST Pulse 69 09/06/2013 8:33 AM EST Temperature 36.6 ??C (97.9 ??F) 09/06/2013 8:33 AM EST Respiratory Rate - - Oxygen Saturation - - Inhaled Oxygen Concentration - - Weight 98.2 kg (216 lb 6.4 oz) 09/06/2013 8:33 AM EST Height 182.9 cm (6') 09/06/2013 8:33 AM EST Body Mass Index 29.35 09/06/2013 8:33 AM EST documented in this encounter Progress Notes Kj Alexandra MD - 09/06/2013 12:01 PM EST Follow-up: Transplant Clinic Date: 09/06/2013 Patient: Richard Hsu Date of Transplant: Transplant Type: Pancreas transplantation alone Transplant Surgeon: Krishna Visit Vitals: BP 129/59 Pulse 69 Temp 36.6 ??C (97.9 ??F) (Oral) Ht 182.9 cm (6') Wt 98.158 kg (216 lb 6.4 oz) BMI 29.35 kg/m2 Diagnosis: 1. Need for prophylactic immunotherapy 2. Status post pancreas transplantation Allergies: Nexium; Prilosec; Reglan; and Simvastatin Immunizations: Most Recent Immunizations Administered Date(s) Administered ??? Influenza Split 05/22/2012 ??? Influenza Whole 06/11/2009 ??? Pneumococcal Polyvalent 23 05/09/2009 ??? Tdap 03/05/2011 Current Meds: Scheduled Meds: Current Outpatient Prescriptions Medication Sig Dispense Refill ??? ondansetron (ZOFRAN) 4 mg tablet Take 1 tablet by mouth every 8 hours as needed for Nausea. 15 tablet 1 ??? acetaminophen (TYLENOL) 325 mg tablet Take 2 tablets by mouth every 4 hours as needed (Pain, Fever. if oral temperature greater than 38.5 Centigrade). 30 tablet ??? HYDROmorphone (DILAUDID) 2 mg tablet Take 1-2 tablets by mouth every 3 hours as needed for Pain.70 tablet 0 ??? polyethylene glycol (MIRALAX) 17 gram packet Take 17 g by mouth daily as needed for 30 days. 14 each ??? sulfamethoxazole-trimethoprim (BACTRIM DS) 800-160 mg per tablet Take 1 tablet by mouth three times a week for 30 days. 13 tablet 5 ??? potassium phosphate, monobasic, (K-PHOS) 500 mg tablet Take 1 tablet by mouth 4 times daily. 90 tablet 6 ??? CELLCEPT 250 mg capsule Take 2 capsules by mouth 2 times daily. S/P Pancreas Transplant 08/28/2013 Dx V42.83 180 capsule 6 ??? Diabetic Supplies, Miscellan. Misc Fax form to [facility] medical for testing supplies 10 times per toj063 each 12 ??? PROGRAF 1 mg capsule Take 2 capsules by mouth 2 times daily. S/P Pancreas transplant V42.83 120 capsule 6 ??? valGANCiclovir (VALCYTE) 450 mg tablet Take 2 tablets by mouth 2 times daily. S/P Pancreas Transplant 08/28/2013 Dx V42.83 60 tablet 6 ??? fluconazole (DIFLUCAN) 200 mg tablet Take 1 tablet by mouth daily. 10 tablet 6 ??? Magnesium Gluconate 27 mg (500 mg) Tab Take 1 tablet by mouth 3 times daily. 90 tablet 6 ??? pantoprazole (PROTONIX) 40 mg tablet Take 1 tablet by mouth daily. 90 tablet 3 ??? levothyroxine (SYNTHROID) 200 mcg tablet Take [...] Labs: Lab Results Component Value Date CREATININE 1.04 09/06/2013 K 5.0 09/06/2013 GLUCOSE 104 09/06/2013 HCT 31.3* 09/06/2013 HGB 10.7* 09/06/2013 WBC 6.5 09/06/2013 PHOS 3.1 09/06/2013 LIPASE 40 09/06/2013 Problem List: Patient Active Problem List Diagnosis [...] GI ENDOSCOPY performed by CLAYTON BHAKTA at [facility] ENDOSCOPY ??? Upper gi endoscopy, biopsy 12/31/2011 UPPER GASTROINTESTINAL ENDOSCOPY,WITH BIOPSY SINGLE OR MULTIPLE performed by CLAYTON BHAKTA at [facility] ENDOSCOPY ??? Shoulder surgery ??? Carpal tunnel release ??? Appendectomy ??? Musculoskeletal surgery unlisted 10 years carpel tunnel ??? 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 Transplant allograft pancreas 08/28/2013 @PANCREATIC TRANSPLANT performed by Iraj Keller MD at [facility] MAIN OR ??? Transplant, prep donor pancreas 08/28/2013 @PREPARATION CADAVERIC PANCREAS, STANDARD performed by Iraj Keller MD at [facility] MAIN OR FAMILY HISTORY: Family History [...] History of Present Illness: HPI Comments: Mr. sHu is a 47-yo male who underwent pancreas transplantation alone last week. Hehad an uncomplicated postoperative stay and returns for his first post-operative clinic visit. He did very well over the weekend. His pain is well-controlled on a Tylenol during the daytime and Dilaudid in the pm regimen. He has had no fevers or rigors and denies erythema or drainage from the wound site. No dysuria. He is following his glucose levels and they have been very well controlled since discharge. He has a level of 104 today. His is doing reasonably well with his PO intake, taking between 3 - 4 L daily. He remains on 1 L IVF through a PICC line and his weight is stable compared to the discharge weight. He denies orthostatic symptoms. He is struggling with his diabetic gastroparesis.He is having nausea and post-prandial fullness, but no emesis. He is able to take his tablets. ROS: Review of Systems Constitutional: Negative for fever and chills. Respiratory: Negative for cough and chest tightness. Cardiovascular: Negative for chest pain. Gastrointestinal: Negative for vomiting, abdominal pain, diarrhea and constipation. Genitourinary: Negative for dysuria and hematuria. Skin: Negative for color change, pallor and rash. Neurological: Negative for tremors, weakness and numbness. Hematological: Does not bruise/bleed easily. All other systems reviewed and are negative. Body mass index is 29.35 kg/(m^2). Physical Exam: Physical Exam Vitals reviewed. [...] evidence of incisional hernia on Valsalva maneuver. He has bilateral lower quadrant contusions without hematoma (SQ heparin sites). Assessment and Plan: --Graft function: Excellent pancreatic allograft function. He has a normal glucose level and normalamylase and lipase levels today. His weight had been stable on the current regimen of PO intake + home IVF which we will continue with his history of diabetic gastroparesis and current symptoms. Has tried Reglan in the past and does not tolerate it. He is on a prophylactic daily aspirin (325mg). -- Immunosuppression reviewed and adjusted: Prograf: tacrolimus level is pending. He is currently on / and has a trough level goal of 8 - 10. Prednisone: none Cellcept: Increased to 750 mg po bid today (was discharged on 500 mg po bid because of leukopenia which has normalized) -- Leukopenia: resolved. Increased his Cellcept and Valcyte to standard doses. Left Bactrim at q M/W/F until his labs on Thursday. Will increase to daily if the WBC ct is stable. -- Electrolytes: Calcium and phosphorus balance reviewed. Continue current doses for now. Magnesium balance reviewed. -- Anti-epileptic medications: he was taken off of depakote during his inpatient stay and was (intentionally) discharged off of this medication. This was prescribed for the management of headaches, notfor a seizure disorder. Will continue to hold and he will followup with the prescribing physician. -- RTC: Thursday with a full set of labs. Pharmacy needs addressed. No concerns today. MD: KJ ALEXANDRA MD Iraj Smiley I - 09/02/2013 1:45 PM EST Check Depakote need. documented in this encounter Plan of Treatment Not on filedocumented as of this encounter Procedures Procedure Name Priority Date/Time Associated Diagnosis Comme nts DIFFERENTIAL, STAT 09/06/2013 9:45 Results for this AUTOMATED AM EST procedure are i n the results section. TACROLIMUS LEVEL STAT 09/06/2013 9:45 Need for prophylactic Results for this AM EST immunotherapy procedure are in Status post pancreas the res ults transplantation section. PROTHROMBIN TIME STAT 09/06/2013 9:45 Need for prophylactic Results for this AM EST immunotherapy procedure are in Status post pancreas the res ults transplantation section. RETICULOCYTE COUNT STAT 09/06/2013 9:45 Need for prophylact ic Results for this AM EST immunotherapy procedure are in Status post pancreas the res ults transplantation section. CBC (WITH DIFF) STAT 09/06/2013 9:45 Need for prophylactic Results for this AM EST immunotherapy procedure are in Status post pancreas the res ults transplantation section. URIC ACID STAT 09/06/2013 9:45 Need for prophylactic Res ults for this AM EST immunotherapy procedure are in Status post pancreas the res ults transplantation section. PHOSPHORUS STAT 09/06/2013 9:45 Need for prophylactic Res ults for this AM EST immunotherapy procedure are in Status post pancreas the res ults transplantation section. MAGNESIUM STAT 09/06/2013 9:45 Need for prophylactic Res ults for this AM EST immunotherapy procedure are in Status post pancreas the res ults transplantation section. LIPASE STAT 09/06/2013 9:45 Need for prophylactic Res ults for this AM EST immunotherapy procedure are in Status post pancreas the res ults transplantation section. CHOLESTEROL, TOTAL STAT 09/06/2013 9:45 Need for prophylact ic Results for this AM EST immunotherapy procedure are in Status post pancreas the res ults transplantation section. AMYLASE STAT 09/06/2013 9:45 Need for prophylactic Res ults for this AM EST immunotherapy procedure are in Status post pancreas the res ults transplantation section. VALPROIC ACID LEVEL, Routine 09/06/2013 9:45 Need for prophyla ctic Results for this TOTAL AM EST immunotherapy procedure are in Status post pancreas the res ults transplantation section. COMPREHENSIVE STAT 09/06/2013 9:45 Need for prophylactic Re sults for this METABOLIC PANEL AM EST immunotherapy procedure are in (NON-FASTING) Status post pancreas the re sults transplantation section. URINALYSIS WITH STAT 09/06/2013 9:39 Need for prophylactic Results for this REFLEX CULTURE AM EST immunotherapy procedure are in Status post pancreas the res ults transplantation section. documented in this encounter Results (ABNORMAL) Differential, Automated (09/06/2013 9:45 AM EST) [facility] Method Time Signature Neutrophils % 91.4 (H) 34.0 - CERNER 71.0 % MILLENNIUM Neutr Abs (ANC) 5.95 1.50 - CERNER 6.30 MILLENNIUM x10(3)/mc L Lymphocytes % 5.7 (L) 19.0 - CERNER 53.0 % MILLENNIUM Lymphocytes Abs 0.4 (L) 1.0 - 3.6 CERNER x10(3)/mc MILLENNIUM L Monocytes % 0.8 (L) 4.0 - CERNER 13.0 % MILLENNIUM Monocyte Abs 0.0 (L) 0.2 - 1.0 CERNER x10(3)/mc MILLENNIUM L Eosinophils % 1.4 0.0 - 7.0 CERNER % MILLENNIUM Eosinophils Abs 0.1 0.0 - 0.5 CERNER x10(3)/mc MILLENNIUM L Basophils % 0.2 0.0 - 2.0 CERNER % MILLENNIUM Basophils Abs 0.0 0.0 - 0.2 CERNER x10(3)/mc MILLENNIUM L Immature Gran % 0.50 0.00 - CERNER 0.66 % MILLENNIUM Comment: [...] Location / / Volume Laterality Blood specimen 09/06/2013 9:45 AM 014 9:53 (specimen) EST AM EST Kj Alexandra MD HEMATOLOGY ORDERABLES Performing Organization Address City/State/[place] [address] CERNER MILLENNIUM Valproic Acid Level, Total (09/06/2013 9:45 AM EST) P athologist Signature Valproic Lvl <3 mg/L CERNER MILLENNIUM Comment: Therapeutic Range: Anticonvulsant Therapy: ??50-100 mg/L Manic Episodes Associated with Bipolar D isorder: ??50-125 mg/L Specimen Anatomical Collection Method Collection Time Receive d Time (Source) Location / / Volume Laterality Blood specimen 09/06/2013 9:45 AM 014 9:53 (specimen) EST AM EST Resulting Agency Comment Spec In Lab Kj Alexandra MD CHEMISTRY ORDERABLES Performing Organization Address City/[facility] [place] [address] CERNER MILLENNIUM Prothrombin Time (09/06/2013 9:45 AM EST) athologist Signature PT 13.5 12.0 - 15.0 CERNER sec MILLENNIUM Comment: [facility] Transfusion Committee Guidelines: I NR less than 2.0, PTT less than OR equal to 43.5 seconds, or Fibrinogen gre ater than or equal to 100 mg/dl indicate adequate procoagulant activity for hemostasis in patients without underlying bleeding disorders. INR 1.0 0.9 - 1.1 CERNER MILLENNIUM Specimen Anatomical Collection Method Collection Time Receive d Time (Source) Location / / Volume Laterality Blood specimen 09/06/2013 9:45 AM 014 9:53 (specimen) EST AM EST Resulting Agency Comment Spec In Lab Kj Alexandra MD HEMATOLOGY ORDERABLES Performing Organization Address City/[facility]/[place] [address] CERNER MILLENNIUM Amylase (09/06/2013 9:45 AM EST) athologist Signature Amylase 53 28 - 100 CERNER unit/L MILLENNIUM Specimen Anatomical Collection Method Collection Time Receive d Time (Source) Location / / Volume Laterality Blood specimen 09/06/2013 9:45 AM 014 9:53 (specimen) EST AM EST Resulting Agency Comment Spec In Lab Kj Alexandra MD CHEMISTRY ORDERABLES Performing Organization Address City/[facility] [[email or web address]] [place] [address] CERNER MILLENNIUM Lipase (09/06/2013 9:45 AM EST) athologist Signature Lipase 40 0 - 60 CERNER unit/L MILLENNIUM Specimen Anatomical Collection Method Collection Time Receive d Time (Source) Location / / Volume Laterality Blood specimen 09/06/2013 9:45 AM 014 9:53 (specimen) EST AM EST Resulting Agency Comment Spec In Lab Kj Alexandra MD CHEMISTRY ORDERABLES Performing Organization Address City/State/ZIP Code Phon e Number [address] CERNER MILLENNIUM (ABNORMAL) Comprehensive metabolic panel (non-fasting) (09/06/2013 9:45 AM EST) athologist Signature Glucose Lvl 104 60 - 199 CERNER mg/dL MILLENNIUM Comment: Diabetes: >=200 mg/dL plus symp toms BUN 7 (L) 10 - 20 mg/dL CERNER MILLENNIU M Creatinine 1.04 0.80 - 1.50 mg/dL CERNER MILL ENNIUM Comment: Please note that the pediatric reference intervals supplied above were not validated at [facility]. Results from pediatri c patients should be interpreted in conjunction to the patient's age, height and muscle mass. Sodium 140 135 - 145 mmol/L CERNER LALA NIUM Potassium 5.0 3.5 - 5.0 mmol/L CERNER LALA NIUM Comment: Please note: ??Patients with WBC >100,00 0 may have falsely elevated Potassium levels. ??For accurate Potassium quantif ication in these patients send serum separator tube (gold top) for subsequent determinations. ??Contact the Clinical Chemistry Laboratory if there are any qu estions. Chloride 106 98 - 107 mmol/L CERNER MILLENN IUM CO2 27 22 - 31 mmol/L CERNER MILLENNI UM Anion Gap 7 5 - 15 mmol/L CERNER MILLENNIU M Calcium 8.8 8.5 - 10.5 mg/dL CERNER LALA NIUM Total Protein 5.7 (L) 6.4 - 8.3 gm/dL CERNER MIL LENNIUM Albumin 3.4 3.2 - 5.2 gm/dL CERNER MILLENN IUM AST 21 0 - 39 unit/L CERNER MILLENNIU M ALT 28 0 - 55 unit/L CERNER MILLENNIU M Alk Phos 68 40 - 120 unit/L CERNER MILLENN IUM [...] Location / / Volume Laterality Blood specimen 09/06/2013 9:45 AM 014 9:53 (specimen) EST AM EST Resulting Agency Comment Spec In Lab Kj Alexandra MD CHEMISTRY ORDERABLES Performing Organization Address City/[facility]/ZIP Code Phon e Number [address] CERNER MILLENNIUM Magnesium (09/06/2013 9:45 AM EST) P athologist Signature Magnesium 0.76 0.69 - 1.07 CERNER mmol/L MILLENNIUM Specimen Anatomical Collection Method Collection Time Receive d Time (Source) Location / / Volume Laterality Blood specimen 09/06/2013 9:45 AM 014 9:53 (specimen) EST AM EST Resulting Agency Comment Spec In Lab Kj Alexandra MD CHEMISTRY ORDERABLES Performing Organization Address City/[facility] Phon e Number [address] CERNER MILLENNIUM Phosphorus (09/06/2013 9:45 AM EST) P athologist Signature Phosphorus 3.1 2.5 - 4.5 CERNER mg/dL [facility] Specimen Anatomical Collection Method Collection Time Receive d Time (Source) Location / / Volume Laterality Blood specimen 09/06/2013 9:45 AM 014 9:53 (specimen) EST AM EST Resulting Agency Comment Spec In Lab Kj Alexandra MD CHEMISTRY ORDERABLES Performing Organization Address City/[facility]/ZIP Code Phon e Number [address] [facility] MILLENNIUM Uric acid (09/06/2013 9:45 AM EST) athologist Signature Uric Acid 4.8 3.5 - 8.5 CERNER mg/dL [facility] Specimen Anatomical Collection Method Collection Time Receive d Time (Source) Location / / Volume Laterality Blood specimen 09/06/2013 9:45 AM 014 9:53 (specimen) EST AM EST Resulting Agency Comment Spec In Lab Kj Alexandra MD CHEMISTRY ORDERABLES Performing Organization Address City/[facility]/ZIP Code Phon e Number [address] [facility] Tacrolimus level (09/06/2013 9:45 AM EST) athologist Signature Tacrolimus Lvl 12.6 ng/mL [facility] Comment: Trough therapeutic: 5-15 ng/mL Specimen Anatomical Collection Method Collection Time Receive d Time (Source) Location / / Volume Laterality Blood specimen 09/06/2013 9:45 AM 014 (specimen) EST 12:05 PM EST Resulting Agency Comment Spec In Lab Kj Alexandra MD CHEMISTRY ORDERABLES Performing Organization Address City/[facility]/ZIP [facility] [place] Number [address] [facility] (ABNORMAL) Reticulocyte Count (09/06/2013 9:45 AM EST) [facility] gist Method Time Signature Retic Ct % 2.1 0.5 - 2.4 CERNER % MILLENNIUM Retic Ct Abs 0.070 0.027 - CERNER 0.095 MILLENNIUM x10(6)/mc L Immature Retic% 15.9 2.3 - CERNER 15.9 % MILLENNIUM Reticulated Hgb 28.1 (L) 28.5 - CERNER 38.9 pg MILLENNIUM Plat Immature % 5.0 0.0 - 7.4 CERNER % MILLENNIUM Specimen Anatomical Collection Method Collection Time Receive d Time (Source) Location / / Volume Laterality Blood specimen 09/06/2013 9:45 AM 014 9:53 (specimen) EST AM EST Resulting Agency Comment Spec In Lab Kj Alexandra MD HEMATOLOGY ORDERABLES Performing Organization Address City/State/ZIP Code Phon e Number [place] [phone] CERNER MILLENNIUM (ABNORMAL) CBC (with Diff) (09/06/2013 9:45 AM EST) P athologist Signature WBC 6.5 4.0 - 10.0 CERNER x10(3)/mcL MILLENNIUM RBC 3.57 (L) 4.63 - CERNER 6.08 MILLENNIUM x10(6)/mcL Hemoglobin 10.7 (L) 13.7 - CERNER 17.5 gm/dL MILLENNIUM Hematocrit 31.3 (L) 40.0 - CERNER 51.0 % MILLENNIUM MCV 87.7 79.0 - CERNER 92.0 fL MILLENNIUM MCH 30.0 25.6 - CERNER 32.2 pg MILLENNIUM MCHC 34.2 32.0 - CERNER 36.5 gm/dL MILLENNIUM Platelets 238 145 - 370 CERNER x10(3)/mcL MILLENNIUM RDWSD 41.4 35.0 - CERNER 46.0 fL MILLENNIUM RDWCV 12.8 10.9 - CERNER 14.4 % MILLENNIUM MPV 10.3 9.0 - 12.0 CERNER fL MILLENNIUM Specimen Anatomical Collection Method Collection Time Receive d Time (Source) Location / / Volume Laterality Blood specimen 09/06/2013 9:45 AM 014 9:53 (specimen) EST AM EST Resulting Agency Comment Spec In Lab Kj Alexandra MD HEMATOLOGY ORDERABLES Performing Organization Address City/[facility]/ZIP Code Phon e Number [address] CERNER MILLENNIUM Cholesterol, total (09/06/2013 9:45 AM EST) P athologist Signature Chol, Total 109 <=199 mg/dL CERNER MILLENNIUM Comment: Recommendations of the NCEP Adult Treatm ent Panel for the following risk cutoff thresholds for the [place] populatio n: Desirable: <200 mg/dL Borderline High: 200-239 mg/dL High: > or = 240 mg/dL Specimen Anatomical Collection Method Collection Time Receive d Time (Source) Location / / Volume Laterality Blood specimen 09/06/2013 9:45 AM 014 9:53 (specimen) EST AM EST Resulting Agency Comment Spec In Lab Kj Alexandra MD CHEMISTRY ORDERABLES Performing Organization Address City/[facility]/[place]IP [facility] [place] [address] CERNER MILLENNIUM Urinalysis with microscopic (09/06/2013 9:39 AM EST) Patholo gist Method Time Signature [...] UA Clear Clear CERNER MILLENNIU M Spec Morrison UA 1.010 1.002 - 1.030 [facility] MIL L[facility] Color UA Yellow Yellow CERNER MILLENNIUM RBC UA <1 0 - 3 /HPF CERNER MILLENNIUM WBC UA <1 0 - 3 /HPF CERNER MILLENNIUM Specimen Anatomical Collection Method Collection Time Receive d Time (Source) Location / / Volume Laterality Urine specimen 09/06/2013 9:39 AM 014 9:44 (specimen) EST AM EST Resulting Agency Comment Spec In Lab Kj Alexandra MD URINE ORDERABLES Performing Organization Address City/State/ZIP Code Phon e Number [place] [phone] [facility] documented in this encounter Visit Diagnoses Diagnosis Need for prophylactic immunotherapy Status post pancreas transplantation 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 documented in this encounter Care Teams Breaker Off Relationship Specialty Start Date End Date Anna Mullen MD PCP - General 12/03/10 [address] [place] [address] documented as of this encounter
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
--- OUTSIDE RECORDS SUMMARY | 2022-03-13 18:32 | XMS_ITS | Encounter Summary ---
:1965 Author Organization [facility] Address [facility] [place] [address] Care Team Providers Name Role Phone Anna Mullen MD Primary Care Provider Reason for Visit Reason Comments Pancreas Transplant Follow-up 08/28/2013 Encounter Details Date Type Department Care Team Description 09/13/2013 Office Visit Solid Organ Nasrin, Need for prophy lactic immunotherapy; Transplant at [facility] Loc Rey MD Status post pancreas transplantation [address] [facility] [address] [place] [id number] [place] [address] [phone] (Wo rk) Social History Tobacco Use Types [...] Sign Reading Time Taken Comments Blood Pressure 123/66 09/13/2013 9:39 AM EST Pulse 74 09/13/2013 9:39 AM EST Temperature 36.9 ??C (98.4 ??F) 09/13/2013 9:39 AM EST Respiratory Rate - - Oxygen Saturation - - Inhaled Oxygen Concentration - - Weight 95 kg (209 lb 6.4 oz) 09/13/2013 9:39 AM EST Height 182.9 cm (6') 09/13/2013 9:39 AM EST Body Mass Index 28.4 09/13/2013 9:39 AM EST documented in this encounter Progress Notes Crys Mckay RD - 09/13/2013 1:55 PM EST September 13, 2013 Richard Hsu [id number] TRANSPLANT NUTRITION Post-transplant Clinic follow-up note Richard Hsu was seen by Nutrition services on September 13, 2013 for follow up post-pancreas transplant on 08/28/2013. Patient is still having trouble eating due to gastroparesis and increased fluidintake to meet post-pancreas transplant requirements. His states that he eats very little. He has been having 3 high protein Boosts per day. He also tried a CIB and a high protein shake that he made at home with protein powder added but they don't have a batch blender therefore he disliked the grainy texture; he would prefer it if it was more smooth. I encouraged them to get a batch blender to mix more thoroughly. Weight: 95kg (209.4#) BMI: 28.4 Weight pre-Txp: 98.4kg (217#) Labs of note: Mg++ 0.67 Phos 2.7 Gluc 96 Chol 131 Alb 3.3 Assessment: Patient is trying to take in more nutrition. He has been having fevers over the past 3-4days. His intake is 4300-4900cc, including 1L IV and his output has been 3200cc. He has lost ~8# since transplant, however some of this may be related to mild dehydration. He will continue the shakes, however he will change lead to Ensure since his can get them much cheaper where she works. I continued to encourage small frequent feeds every 2 hours or so. Follow-up Interventions: Continue supplemental shakes, with or between small meals. I provided patient with a copy of his Post-Transplant Nutrition Lab Report and reviewed with them. I will follow up next clinic visit and intervene further prn. Loc Alexandra MD - 09/13/2013 11:29 AM EST Follow-up: Transplant Clinic Date: 09/13/2013 Patient: Richard Hsu Date of Transplant: Transplant Type: Pancreas transplantation alone Transplant Surgeon: Krishna Visit Vitals: BP 123/66 Pulse 74 Temp 36.9 ??C (98.4 ??F) (Oral) Ht 182.9 cm (6') Wt 94.983 kg (209 lb 6.4 oz) BMI 28.40 kg/m2 Diagnosis: 1. Need for prophylactic immunotherapy 2. Status post pancreas transplantation Allergies: Nexium; Prilosec; Reglan; and Simvastatin Immunizations: Most Recent Immunizations Administered Date(s) Administered ??? Influenza Split 05/22/2012 ??? Influenza Whole 06/11/2009 ??? Pneumococcal Polyvalent 23 05/09/2009 ??? Tdap 03/05/2011 Current Meds: Scheduled Meds: Current Outpatient Prescriptions Medication Sig Dispense Refill ??? potassium phosphate, monobasic, (K-PHOS) 500 mg tablet Take 500 mg by mouth 2 times daily. ??? valGANCiclovir (VALCYTE) 450 mg tablet Take 900 mg by mouth daily. ??? cephALEXin (KEFLEX) 500 mg capsule Take 1 capsule by mouth 4 times daily for 7 days. 28 capsule 0 ??? HYDROmorphone (DILAUDID) 2 mg tablet Take [...] 3 times daily. 270 tablet 3 ??? nystatin (MYCOSTATIN) 100,000 unit/mL suspension [...] days. 14 each ??? Diabetic Supplies, Miscellan. Misc Fax form to [facility] for testing supplies 10 times per ggr586 each 12 ??? levothyroxine (SYNTHROID) 200 mcg [...] Labs: Lab Results Component Value Date CREATININE 0.97 09/13/2013 K 4.5 09/13/2013 GLUCOSE 96 09/13/2013 HCT 29.4* 09/13/2013 HGB 9.9* 09/13/2013 WBC 4.8 09/13/2013 PHOS 2.7 09/13/2013 LIPASE 28 09/13/2013 Problem List: Patient Active Problem List Diagnosis [...] [facility] OR FAMILY HISTORY: Family History Problem [...] a 48-yo male with a history of IDDM who underwent [employer] three weeks ago. He returns today for a routine clinic appointment. On Thursday he had mild cellulitis around the central portion of his incision site and was started on Keflex. He developed a low grade fever on Thursday evening, defervesced, and has had near resolution ofthe erythema since that time. He reports low grade daily fevers over the last few days today. He denies rigors and has had no dysuria. He denies abdominal pain. He has loose bowel movements but not martin diarrhea. There has been no drainage from the incision site. He is taking in 2.5L - 3L daily PO and is receiving 1 L IVF at home each day. His weight is down by 3kg since his last appointment. Denies orthostatic symptoms. ROS: Review of Systems Constitutional: Positive for fever. Negative for chills. Respiratory: Negative for cough and chest tightness. Cardiovascular: Negative for chest pain. Gastrointestinal: Negative for vomiting, abdominal pain, diarrhea and constipation. Genitourinary: Negative for dysuria, urgency and hematuria. Skin: Negative for color change, pallor and rash. Neurological: Negative for tremors, weakness and numbness. Hematological: Does not bruise/bleed easily. All other systems reviewed and are negative. Body mass index is 28.40 kg/(m^2). Physical Exam: Physical Exam Vitals reviewed. Constitutional: He appears well-developed and well-nourished. No distress. Abdominal: Soft. He exhibits no distension. There is no tenderness. There is no rebound and no guarding. Musculoskeletal: He exhibits no edema. Neurological: He displays no tremor. Skin: Skin is warm and dry. No rash noted. He is not diaphoretic. No erythema. Wound C/D/I with resolving cellulitis. There is no evidence of discharge from the wound. No crepitus or necrotic skin. No palapable fluctuant fluid collections in the subcutaneous tissues. No evidenceof incisional hernia on Valsalva maneuver. Assessment and Plan: --Graft function: Graft function has been excellent. His peak glucose levels this week have been inthe 160-170 range, but typically running in the low 100 range. He has a glucose level of 96 and A/L that are normal today. -- Immunosuppression reviewed and adjusted: Prograf: tacrolimus level is pending. We d/c'd fluconazole on Thursday (supratherapeutic prograf). He is currently on 08/31 Prednisone: none Cellcept: 750 mg po bid -- Fever: his cellulitis is nearly resolved. I am going to scan him today to confirm that there is no evidence of a subcutaneous abscess (which is not evident by exam) and evaluate him for an intraabdominal abscess given the low grade daily temperatures. This scan is scheduled for this afternoon. Will continue his planned Keflex course pending the results of this study. -- Hypertension management: No adjustments today. -- Electrolytes: Calcium and phosphorus balance reviewed. Magnesium balance reviewed. -- RTC: If there are no concerning findings on the CT scan, will plan for return visit on Thursday with a full set of labs. Pharmacy needs addressed. No concerns today. MD: LOC ALEXANDRA MD documented in this encounter Plan of Treatment Not on filedocumented as of this encounter Procedures Procedure Name Priority Date/Time Associated Diagnosis Comme nts URINALYSIS WITH STAT 09/13/2013 10:24 Need for prophylactic Results for this REFLEX CULTURE AM EST immunotherapy procedure are in Status post pancreas the res ults transplantation section. DIFFERENTIAL, STAT 09/13/2013 10:20 Results fo r this AUTOMATED AM EST procedure are i n the results section. TACROLIMUS LEVEL STAT 09/13/2013 10:20 Need for prophylacti c Results for this AM EST immunotherapy procedure are in Status post pancreas the res ults transplantation section. RETICULOCYTE COUNT STAT 09/13/2013 10:20 Need for prophylac tic Results for this AM EST immunotherapy procedure are in Status post pancreas the res ults transplantation section. CBC (WITH DIFF) STAT 09/13/2013 10:20 Need for prophylactic Results for this AM EST immunotherapy procedure are in Status post pancreas the res ults transplantation section. URIC ACID STAT 09/13/2013 10:20 Need for prophylactic Re sults for this AM EST immunotherapy procedure are in Status post pancreas the res ults transplantation section. PHOSPHORUS STAT 09/13/2013 10:20 Need for prophylactic Re sults for this AM EST immunotherapy procedure are in Status post pancreas the res ults transplantation section. MAGNESIUM STAT 09/13/2013 10:20 Need for prophylactic Re sults for this AM EST immunotherapy procedure are in Status post pancreas the res ults transplantation section. LIPASE STAT 09/13/2013 10:20 Need for prophylactic Re sults for this AM EST immunotherapy procedure are in Status post pancreas the res ults transplantation section. CHOLESTEROL, TOTAL STAT 09/13/2013 10:20 Need for prophylac tic Results for this AM EST immunotherapy procedure are in Status post pancreas the res ults transplantation section. AMYLASE STAT 09/13/2013 10:20 Need for prophylactic Re sults for this AM EST immunotherapy procedure are in Status post pancreas the res ults transplantation section. COMPREHENSIVE STAT 09/13/2013 10:20 Need for prophylactic R esults for this METABOLIC PANEL AM EST immunotherapy procedure are in (NON-FASTING) Status post pancreas the re sults transplantation section. documented in this encounter Results (ABNORMAL) Prealbumin (09/16/2013 10:42 AM EST) athologist Signature Prealbumin 10 (L) 20 - 40 CERNER mg/dL [facility] Comment: Prealbumin levels are generally lower in the pediatric population; adult concentrations are usually attained near puberty. Specimen Anatomical Collection Method Collection Time Receive d Time (Source) Location / / Volume Laterality Blood specimen 09/16/2013 10:42 4 (specimen) AM EST 10:46 AM EST Resulting Agency Comment Spec In Lab Loc Alexandra MD CHEMISTRY ORDERABLES Performing Organization Address City/State/ZIP Code Phon e Number [place] [phone] CERNER M[address]UM CT abdomen & pelvis with contrast (09/13/2013 4:52 PM EST) Anatomical Region Laterality Modality Abdomen, Pelvis Computed Tomography Specimen (Source) Anatomical Collection Method Collection Time Re ceived Time Location / / Volume Laterality 09/13/2013 4:52 PM EST Narrative 09/13/2013 4:[address] Abdomen / Pelvis With Contrast Clinical History post-op pancreas transplant with fevers ?? rule out pancreatic abscess or other ольга rce of intrabdominal infection Comparison None. Technique Omnipaque 350 110 mL. Findings Lung bases: ??Small bilateral pleural ef fusions. ??Lung bases are clear. Abdomen: The liver and spleen appear nor mal. ??Kidneys show symmetric uptake of contrast material, suboptimal. ??No free fluid or abscess noted in the abdomen. Pelvis: ??The patient is status post a p ancreatic transplant, some which appears to be hypo perfused or hypodense. ??This could represent pancreatic ischemia or pancreatic infarction. ??Ultrasound may provide further information. ??Small amount of free fluid in the cul-de-sac. No dilated bowel or abscess noted. Impression Status post recent pancreatic transplant . ??Portions of the pancreas appear to be hypo perfused or low-density, suggest ing ischemia or infarction. ??Consider ultrasound for further evaluation. ??Sma ll amount of free fluid in the pelvis. ?? No evidence of intra-abdominal abscess. Procedure Note Richard Oates MD - 09/13/2013Formatt ing of this note might be different from the original. Examination CT Abdomen / Pelvis With Contrast Clinical History post-op pancreas transplant with fevers rule out pancreatic abscess or other ольга rce of intrabdominal infection Comparison None. Technique Omnipaque 350 110 mL. Findings Lung bases: Small bilateral pleural effu sions. Lung bases are clear. Abdomen: The liver and spleen appear nor mal. Kidneys show symmetric uptake of contrast material, suboptimal. No free f luid or abscess noted in the abdomen. Pelvis: The patient is status post a huitron creatic transplant, some which appears to be hypo perfused or hypodense. This c ould represent pancreatic ischemia or pancreatic infarction. Ultrasound may pr ovide further information. Small amount of free fluid in the cul-de-sac. No dilated bowel or abscess noted. Impression Status post recent pancreatic transplant . Portions of the pancreas appear to be hypo perfused or low-density, suggest ing ischemia or infarction. Consider ultrasound for further evaluation. Small amount of free fluid in the pelvis. No evidence of intra-abdominal abscess. Loc Alexandra MD IM CT ORDERABLES (ABNORMAL) Urinalysis with microscopic (09/13/2013 10:24 AM EST) [facility] Method Time Signature Glucose UA Negative Negative CERNER mg/dL MILLENNIUM Protein UA Trace (A) Neg mg/dL CERNER MILLENNIUM Bilirubin UA Negative Negative [...] UA Clear Clear CERNER MILLENNIU M Spec [place] UA 1.021 1.002 - 1.030 CERNER MIL LENNIUM Color UA Yellow Yellow CERNER MILLENNIUM RBC UA <1 0 - 3 /HPF CERNER MILLENNIUM WBC UA <1 0 - 3 /HPF CERNER MILLENNIUM Specimen Anatomical Collection Method Collection Time Receive d Time (Source) Location / / Volume Laterality Urine specimen 09/13/2013 10:24 4 (specimen) AM EST 10:28 AM EST Resulting Agency Comment Spec In Lab Loc Alexandra MD URINE ORDERABLES Performing Organization Address City/State/ZIP Code Phon e Number [place] [phone] CERNER MILLENNIUM (ABNORMAL) Differential, Automated (09/13/2013 10:20 AM EST) [facility] Method Time Signature Neutrophils % 88.3 (H) 34.0 - CERNER 71.0 % MILLENNIUM Neutr Abs (ANC) 4.25 1.50 - CERNER 6.30 MILLENNIUM x10(3)/mc L Lymphocytes % 3.9 (L) 19.0 - CERNER 53.0 % MILLENNIUM Lymphocytes Abs 0.2 (L) 1.0 - 3.6 CERNER x10(3)/mc MILLENNIUM L Monocytes % 3.9 (L) 4.0 - CERNER 13.0 % MILLENNIUM Monocyte Abs 0.2 0.2 - 1.0 CERNER x10(3)/mc MILLENNIUM L Eosinophils % 2.7 0.0 - 7.0 CERNER % MILLENNIUM Eosinophils Abs 0.1 0.0 - 0.5 CERNER x10(3)/mc MILLENNIUM L Basophils % 0.6 0.0 - 2.0 CERNER % MILLENNIUM Basophils [...] Location / / Volume Laterality Blood specimen 09/13/2013 10:20 4 (specimen) AM EST 10:25 AM EST Loc Alexandra MD HEMATOLOGY ORDERABLES Performing Organization Address City/[facility]/ZIP [facility] Phon e Number [address] [facility] MILLENNIUM Amylase (09/13/2013 10:20 AM EST) P athologist Signature Amylase 35 28 - 100 CERNER unit/L MILLENNIUM Specimen Anatomical Collection Method Collection Time Receive d Time (Source) Location / / Volume Laterality Blood specimen 09/13/2013 10:20 4 (specimen) AM EST 10:25 AM EST Resulting Agency Comment Spec In Lab Loc Alexandra MD CHEMISTRY ORDERABLES Performing Organization Address City/[facility]/ZIP [facility] Phon e Number [address] CERNER MILLENNIUM Lipase (09/13/2013 10:20 AM EST) P athologist Signature Lipase 28 0 - 60 CERNER unit/L MILLENNIUM Specimen Anatomical Collection Method Collection Time Receive d Time (Source) Location / / Volume Laterality Blood specimen 09/13/2013 10:20 4 (specimen) AM EST 10:25 AM EST Resulting Agency Comment Spec In Lab Loc Alexandra MD CHEMISTRY ORDERABLES Performing Organization Address City/State/ZIP [place] [address] CERNER MILLENNIUM (ABNORMAL) Comprehensive metabolic panel (non-fasting) (09/13/2013 10:20 AM EST) athologist Signature Glucose Lvl 96 60 - 199 CERNER mg/dL MILLENNIUM Comment: Diabetes: >=200 mg/dL plus symp toms BUN 10 10 - 20 mg/dL CERNER MILLENNIU M Creatinine 0.97 0.80 - 1.50 mg/dL CERNER MILL ENNIUM Comment: Please note that the pediatric reference intervals supplied above were not validated at [facility]. Results from pediatri c patients should be [...] - 5.2 gm/dL CERNER MILLENN IUM AST 34 0 - 39 unit/L CERNER MILLENNIU M ALT 42 0 - 55 unit/L CERNER MILLENNIU M Alk Phos 191 (H) 40 - 120 unit/L CERNER MILLENN IUM Total Bilirubin 0.3 0.2 - 1.3 mg/dL CERNER M ILLENNIUM [...] Location / / Volume Laterality Blood specimen 09/13/2013 10:20 4 (specimen) AM EST 10:25 AM EST Resulting Agency Comment Spec In Lab Loc Alexandra MD CHEMISTRY ORDERABLES Performing Organization Address City/[facility]/ZIP Code Phon e Number [address] CERNER MILLENNIUM (ABNORMAL) Magnesium (09/13/2013 10:20 AM EST) P athologist Signature Magnesium 0.67 (L) 0.69 - 1.07 CERNER mmol/L MILLENNIUM Specimen Anatomical Collection Method Collection Time Receive d Time (Source) Location / / Volume Laterality Blood specimen 09/13/2013 10:20 4 (specimen) AM EST 10:25 AM EST Resulting Agency Comment Spec In Lab Loc Alexandra MD CHEMISTRY ORDERABLES Performing Organization Address City/State/ZIP [facility] [place] [address] CERNER MILLENNIUM Phosphorus (09/13/2013 10:20 AM EST) P athologist Signature Phosphorus 2.7 2.5 - 4.5 CERNER mg/dL MILLENNIUM Specimen Anatomical Collection Method Collection Time Receive d Time (Source) Location / / Volume Laterality Blood specimen 09/13/2013 10:20 4 (specimen) AM EST 10:25 AM EST Resulting Agency Comment Spec In Lab Loc Alexandra MD CHEMISTRY ORDERABLES Performing Organization Address City/[facility]/ZIP Code Phon e Number [address] CERNER MILLENNIUM Uric acid (09/13/2013 10:20 AM EST) P athologist Signature Uric Acid 4.5 3.5 - 8.5 CERNER mg/dL MILLENNIUM Specimen Anatomical Collection Method Collection Time Receive d Time (Source) Location / / Volume Laterality Blood specimen 09/13/2013 10:20 4 (specimen) AM EST 10:25 AM EST Resulting Agency Comment Spec In Lab Loc Alexandra MD CHEMISTRY ORDERABLES Performing Organization Address City/[facility]/ZIP Code Phon e Number [address] [facility] Tacrolimus level (09/13/2013 10:20 AM EST) P athologist Signature Tacrolimus Lvl 8.2 ng/mL CERNER MILLENNIUM Comment: Trough therapeutic: 5-15 ng/mL Specimen Anatomical Collection Method Collection Time Receive d Time (Source) Location / / Volume Laterality Blood specimen 09/13/2013 10:20 4 (specimen) AM EST 12:12 PM EST Resulting Agency Comment Spec In Lab Loc Alexandra MD CHEMISTRY ORDERABLES Performing Organization Address City/[facility]/ZIP [facility] Phon e Number [address] [facility] MILLENNIUM (ABNORMAL) Reticulocyte Count (09/13/2013 10:20 AM EST) Patholo gist Method Time Signature Retic Ct % 1.4 0.5 - 2.4 CERNER % MILLENNIUM Retic Ct Abs 0.050 0.027 - CERNER 0.095 MILLENNIUM x10(6)/mc L Immature Retic% 15.2 2.3 - CERNER 15.9 % MILLENNIUM Reticulated Hgb 23.7 (L) 28.5 - CERNER 38.9 pg MILLENNIUM Plat Immature % 4.1 0.0 - 7.4 CERNER % MILLENNIUM Specimen Anatomical Collection Method Collection Time Receive d Time (Source) Location / / Volume Laterality Blood specimen 09/13/2013 10:20 4 (specimen) AM EST 10:25 AM EST Resulting Agency Comment Spec In Lab Loc Alexandra MD HEMATOLOGY ORDERABLES Performing Organization Address City/[facility]/[place] [address] CERNER MILLENNIUM (ABNORMAL) CBC (with Diff) (09/13/2013 10:20 AM EST) P athologist Signature WBC 4.8 4.0 - 10.0 CERNER x10(3)/mcL MILLENNIUM RBC 3.38 (L) 4.63 - CERNER 6.08 MILLENNIUM x10(6)/mcL Hemoglobin 9.9 (L) 13.7 - CERNER 17.5 gm/dL MILLENNIUM Hematocrit 29.4 (L) 40.0 - CERNER 51.0 % MILLENNIUM MCV 87.0 79.0 - CERNER 92.0 fL MILLENNIUM MCH 29.3 25.6 - CERNER 32.2 pg MILLENNIUM MCHC 33.7 32.0 - CERNER 36.5 gm/dL MILLENNIUM Platelets 381 (H) 145 - 370 CERNER x10(3)/mcL MILLENNIUM RDWSD 40.7 35.0 - CERNER 46.0 fL MILLENNIUM RDWCV 12.7 10.9 - CERNER 14.4 % MILLENNIUM MPV 9.8 9.0 - 12.0 CERNER fL MILLENNIUM Specimen Anatomical Collection Method Collection Time Receive d Time (Source) Location / / Volume Laterality Blood specimen 09/13/2013 10:20 4 (specimen) AM EST 10:25 AM EST Resulting Agency Comment Spec In Lab Loc Alexandra MD HEMATOLOGY ORDERABLES Performing Organization Address City/[facility]/[place] [address] CERNER MILLENNIUM Cholesterol, total (09/13/2013 10:20 AM EST) P athologist Signature Chol, Total 131 <=199 mg/dL CERNER MILLENNIUM Comment: Recommendations of the NCEP Adult Treatm ent Panel for the following risk cutoff thresholds for the [place] populatio n: Desirable: <200 mg/dL Borderline High: 200-239 mg/dL High: > or = 240 mg/dL Specimen Anatomical Collection Method Collection Time Receive d Time (Source) Location / / Volume Laterality Blood specimen 09/13/2013 10:20 4 (specimen) AM EST 10:25 AM EST Resulting Agency Comment Spec In Lab Loc Alexandra MD CHEMISTRY ORDERABLES Performing Organization Address City/State/[place] [address] [facility] documented in this encounter Visit Diagnoses Diagnosis Need for prophylactic immunotherapy Status post pancreas transplantation 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 Status post pancreas transplantation 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 documented in this encounter Care Teams Occupational Health Technician Relationship Specialty Start Date End Date Anna Mullen MD PCP - General 12/03/[address] [place] [address] documented as of this encounter
--- OUTSIDE RECORDS SUMMARY | 2022-03-13 18:32 | XMS_ITS | Encounter Summary ---
:1965 Author Organization [employer] [place] [address] Care Team Providers Name Role Phone Anna Mullen MD Primary Care Provider Encounter Details Date Type Department Care Team Description 10/03/2013 Telephone Solid Organ Transpla nt at [facility] [place] [address] Social History Tobacco Use Types Packs/Day Years Used Date Never Smoker Smokeless Tobacco: Never Used Alcohol Use Standard Drinks/Week Comments No 0 (1 standard drink = 0.6 oz pure alcoho l) history of abuse, stopped 1996 Sex Assigned at Date Recorded Male 05/29/2021 11:28 PM EDT documented as of this encounter Miscellaneous Notes Telephone Encounter - Donna Manzano - 10/03/2013 11:48 AM EST Transplant Physician Compensation Analyst Note:Phone call from patient, reports that he was only able to get 9 Zofran today and his pharmacy tried each day over the weekend to run 36 pills based on info provided last week from his pharmacy insurance carrier. [employer] Coverage Review: [phone] contacted. I spoke to Shante, who stated they are having a linking issue with their system and that is preventing the prescription from being filled as ordered. She processed a 14 day override while I was on the phone with her - beginning tomorrow the patient should be able to get 90 pills for a 30 day supply. This 14 day override is valid until 10/17/2013. Called the patient's pharmacy, [facility]. Advised the pharmacist of the above information and asked that they try to run a fill for 90 pills tomorrow. I asked that they contact me directly if there are any processing issues. Called the patient and advised of the above information. documented in this encounter Plan of Treatment Not on filedocumented as of this encounter Visit Diagnoses Not on filedocumented in this encounter Care Teams Agricultural Aircraft Pilot Relationship Specialty Start Date End Date Anna Mullen MD PCP - General 12/03/10 [address] [place] [address] documented as of this encounter
--- OUTSIDE RECORDS SUMMARY | 2022-03-13 18:32 | XMS_ITS | Encounter Summary ---
:1965 Author Organization [facility] [place] [address] Care Team Providers Name Role Phone Anna Mullen MD Primary Care Provider Reason for Visit Reason Onset Date Comments Medication Refill 09/06/2013 Encounter Details Date Type Department Care Team Description 09/06/2013 Refill Solid Organ Transplant at Iraj Chappell I, [place] [address] [place] [address] [phone] Social History Tobacco Use Types Packs/Day Years [...] on filedocumented in this encounter Care Teams Staff Development Manager Relationship Specialty Start Date End Date Anna Mullen MD PCP - General 12/03/10 [address] [place], [place] [id number] documented as of this encounter
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
--- OUTSIDE RECORDS SUMMARY | 2022-03-13 18:32 | XMS_ITS | Encounter Summary ---
:1965 Author Organization [facility] [place] [address] Care Team Providers Name Role Phone Anna Mullen MD Primary Care Provider Encounter Details Date Type Department Care Team Description 09/16/2013 Follow-Up [place] [address] Social History Tobacco Use Types Packs/Day [...] on filedocumented in this encounter Care Teams Checkroom Chief Relationship Specialty Start Date End Date Anna Mullen MD PCP - General 12/03/10 [address] [place], [place] [id number] documented as of this encounter
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
--- OUTSIDE RECORDS SUMMARY | 2022-03-13 18:32 | XMS_ITS | Encounter Summary ---
:1965 Author Organization [facility] Address [facility] [place] [address] Care Team Providers Name Role Phone Anna Mullen MD Primary Care Provider Encounter Details Date Type Department Care Team Description 09/13/[address] Scan at [facility], CONV Status post pancreas Encounter One Kj Mcmahon MD [facility] [place] [address] [place] [address] Social History Tobacco Use Types [...] mouth 0 02/22/2016 tablet 2 times daily. potassium phosphate, Take 500 mg by mouth 0 11/29/2013 monobasic, (K-PHOS) 500 2 times daily. mg tablet valGANCiclovir Take 450 mg by mouth 0 05/31/2014 (VALCYTE) 450 mg tablet daily. cephALEXin (KEFLEX) 500 Take 1 capsule by 28 capsule 0 09/0909/16/2013 mg capsule mouth 4 times daily for 7 days. HYDROmorphone Take 1-2 tablets by 50 tablet 0 2013 (DILAUDID) 2 mg tablet mouth every 3 hours as needed for Pain. nystatin (MYCOSTATIN) Take 2 mLs by mouth 600 mL 1 09/0609/20/2013 100,000 unit/mL 4 times daily for 14 suspension days. sulfamethoxazole-trimet Take 1 tablet by 90 tablet 3 201309/08/2014 hoprim (BACTRIM DS) mouth three times a 800-160 mg per tablet week for 30 days. pantoprazole (PROTONIX) Take 1 tablet by 90 tablet 3 201309/08/2014 40 mg tablet mouth daily. CELLCEPT 250 mg capsule Take 3 capsules by 540 capsule 3 02/201409/30/2013 mouth 2 times daily. S/P Pancreas Transplant 08/28/2013 Dx V42.83 Magnesium Gluconate 27 Take 1 tablet by 270 tablet 3 014 11/29/2013 mg (500 mg) Tab mouth 3 times daily. PROGRAF 1 mg capsule Take 1 capsule by 360 capsule 3 014 09/20/2013 mouth 2 times daily. S/P Pancreas transplant V42.83 ondansetron (ZOFRAN) 4 Take 1 tablet by 15 tablet 1 014 09/27/2013 mg tablet mouth every 8 hours as needed for Nausea. polyethylene glycol Take 17 g by mouth 14 each 0 09/02/19 14 10/02/2013 (MIRALAX) 17 gram daily as needed for packet 30 days. acetaminophen (TYLENOL) Take 2 tablets by 30 tablet 0 09/0205/22/2020 325 mg tablet mouth every 4 hours as needed (Pain, Fever. if oral temperature greater than 38.5 Centigrade). Diabetic Supplies, Fax form to [facility] 100 each 12 09/02/2013 0 05/10/2014 [facility]an. [facility] for testing supplies 10 times per day levothyroxine Take 1 tablet by 90 tablet 4 02/07/201312/27 (SYNTHROID) 200 mcg mouth daily. tablet citalopram (CELEXA) 20 Take 40 mg by mouth 0 08/06/2016 mg tablet daily. naproxen sodium Take 1 tablet by 60 tablet 5 01/21/2012 (ANAPROX) 550 mg tablet mouth 2 times daily as needed (for breakthrough headaches). traMADol (ULTRAM) 50 mg Take 100 mg by mouth 0 10/18/2013 tablet 2 times daily. hydrOXYzine (VISTARIL) Take by mouth 2 0 12/25/19 11 10/28/2013 25 mg capsule times daily as needed. aspirin 325 mg tablet Take 325 mg by mouth 0 05/31/2014 daily. documented as of this encounter Miscellaneous Notes Miscellaneous - Provider, Scanning - 09/15/2013 10:43 AM EST documented in this encounter Plan of Treatment Not on filedocumented as of this encounter Procedures Procedure Name Priority Date/Time Associated Diagnosis Comme nts CT ABDOMEN AND STAT 09/13/2013 4:52 PM Status post pancreas Results for this PELVIS W CONTRAST EST transplantation procedu re are in the results section. documented in this encounter Results CT abdomen & pelvis with contrast (09/13/2013 [...] the pelvis. No evidence of intra-abdominal abscess. Kj Alexandra MD IMG CT ORDERABLES documented in this encounter Visit Diagnoses Diagnosis Status post pancreas transplantation 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 documented in this encounter Administered Medications Inactive Administered Medications - up to 3 most recent administrations Medication Order MAR Action Action Date Dose Rate Site iohexol (OMNIPAQUE) 350 mg Given 09/13/2013 2:30 PM EST 17,500 m g iodine/mL injection 17,500 mg 17,500 mg (50 mL), Oral, ONCE PRN, 1 dose, Starting on Thu09/13/13 at 1651, Until Thu09/13/13 at 1430, Per Protocol, Routine iohexol (OMNIPAQUE) 350 mg iodine/mL Given 09/13/2013 4:48 PM ES T 38,500 mg injection 38,500 mg 38,500 mg (110 mL), Intravenous, ONCE PRN, 1 dose, Starting on Thu09/13/13 at 1651, Until Thu09/13/13 at 1648, Per Protocol, Routine documented in this encounter Care Teams Sustainability Engineer Relationship Specialty Start Date End Date Anna Mullen MD PCP - General 12/03/10 [address] [place] [address] documented as of this encounter
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
--- OUTSIDE RECORDS SUMMARY | 2022-03-13 18:32 | XMS_ITS | Encounter Summary ---
:1965 Author Organization [facility] [place] [address] Care Team Providers Name Role Phone Anna Mullen MD Primary Care Provider Encounter Details Date Type Department Care Team Description 09/16/2013 Hospital Laboratory Nasrin, Need for prophylactic immuno therapy; Encounter [facility] Status post pancreas [place] [address] TRANSPLANT SURGERY [phone] [place], [place] [address] Social History Tobacco Use Types [...] 0 05/31/2014 (VALCYTE) 450 mg tablet daily. HYDROmorphone Take 1-2 tablets by 50 tablet [...] 38.5 Centigrade). Diabetic Supplies, Fax form to [facility] 100 each 12 09/02/2013 0 05/10/[address] [facility] for testing supplies 10 times per [...] Name Priority Date/Time Associated Diagnosis Comme nts PREALBUMIN STAT 09/16/2013 10:42 AM Need for prophylactic Results for this EST immunotherapy procedure are in Status post pancreas the res ults transplantation section. documented in this encounter Results (ABNORMAL) Prealbumin (09/16/2013 10:42 AM EST) athologist Signature Prealbumin 10 (L) 20 - 40 CERNER mg/dL [facility] Comment: Prealbumin levels are generally lower in the pediatric population; adult concentrations are usually attained near puberty. Specimen Anatomical Collection Method Collection Time Receive d Time (Source) Location / / Volume Laterality Blood specimen 09/16/2013 10:42 4 (specimen) AM EST 10:46 AM EST Resulting Agency Comment Spec In Lab Kj Alexandra MD CHEMISTRY ORDERABLES Performing Organization Address City/State/[place] [address] [facility] documented in this encounter Visit Diagnoses Diagnosis Need for prophylactic immunotherapy Status post pancreas transplantation 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 documented in this encounter Care Teams Videogame Tester Relationship Specialty Start Date End Date Anna Mullen MD PCP - General 12/03/10 [address] [place] [address] documented as of this encounter
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
--- OUTSIDE RECORDS SUMMARY | 2022-03-13 18:32 | XMS_ITS | Encounter Summary ---
:1965 Author Organization [facility] [place] [address] Care Team Providers Name Role Phone Anna Mullen MD Primary Care Provider Encounter Details Date Type Department Care Team Description 09/06/2013 Hospital Encounter Laboratory [place], Type 1 DM with polyneuropath y; [facility] Bruce Parra [address] [place], [place] CENTER [address] ENDOCRINOLOGY [phone] [facility] [place] [id number] Social History Tobacco Use Types Packs/Day Years [...] mouth 0 02/22/2016 tablet 2 times daily. nystatin (MYCOSTATIN) Take 2 mLs by mouth 600 mL 1 09/0609/20/2013 100,000 unit/mL 4 times daily for 14 suspension days. valGANCiclovir Take 2 tablets by 180 tablet 3 09/06/2013 (VALCYTE) 450 mg tablet mouth 2 times daily. S/P Pancreas Transplant 08/28/2013 Dx V42.83 sulfamethoxazole-trimet Take 1 tablet by 90 tablet [...] (500 mg) Tab mouth 3 times daily. potassium phosphate, Take 1 tablet by 360 tablet 3 4 09/13/2013 monobasic, (K-PHOS) 500 mouth 4 times daily. mg tablet PROGRAF 1 mg capsule Take 1 capsule [...] if oral temperature greater than 38.5 Centigrade). HYDROmorphone Take 1-2 tablets by 70 tablet 0 09/02/2013 (DILAUDID) 2 mg tablet mouth every 3 hours as needed for Pain. Diabetic Supplies, Fax form to [facility] 100 each 12 09/02/2013 0 05/10/2014 Miscellan. [facility] medical for testing supplies 10 times per day fluconazole (DIFLUCAN) Take 1 tablet by 10 tablet 6 013 2013 200 mg tablet mouth daily. levothyroxine Take 1 tablet by 90 tablet [...] Name Priority Date/Time Associated Diagnosis Comme nts TSH STAT 09/06/2013 9:45 AM Hypothyroid Results f or this EST procedure are i n the results section. HEMOGLOBIN A1C STAT 09/06/2013 9:45 AM Type 1 DM with Resul ts for this EST polyneuropathy procedure are in the results section. documented in this encounter Results (ABNORMAL) TSH (09/06/2013 9:45 AM EST) athologist Signature TSH 7.43 (H) 0.27 - 4.20 CERNER mcIU/mL [facility] Specimen Anatomical Collection Method Collection Time Receive d Time (Source) Location / / Volume Laterality Blood specimen 09/06/2013 9:45 AM 014 9:53 (specimen) EST AM EST Resulting Agency Comment Spec In Lab Divya Coles MD CHEMISTRY ORDERABLES Performing Organization Address City/State/[place] [address] [facility] (ABNORMAL) Hemoglobin A1c (09/06/2013 9:45 AM EST) Analysis Performed At [facility] Time Signature Hemoglobin A1C 7.4 (H) <=5.6 % [facility] Comment: As of 2013 the methodology for [...] 36: Suppl. 1, S67-74 Est Avg Gluc 166 mg/dL [facility] Comment: eAG equivalents for HbA1c percentages: HbA1c(%) [...] ??http://professional.diabetes.org/gluc osecalculator.aspx Edinson GRISSOM, Nathaniel Adame, Ari R, et al. ??Tr anslating the A1C assay into estimated average glucose values. ??Diabetes Care 2008:31(8):5990-9377. Specimen Anatomical Collection Method Collection Time Receive d Time (Source) Location / / Volume Laterality Blood specimen 09/06/2013 9:45 AM 014 9:53 (specimen) EST AM EST Resulting Agency Comment Spec In Lab Divya Coles MD CHEMISTRY ORDERABLES Performing Organization Address City/State/ZIP Code Phon e Number [place] [phone] [facility] documented in this encounter Visit Diagnoses Diagnosis Type 1 DM with polyneuropathy Type I (juvenile type) diabetes mellitus with neurological manifestations, not stated as uncontrolled Hypothyroid Unspecified hypothyroidism documented in this encounter Care Teams Set Up Mechanic Coil Winding Machines Relationship Specialty Start Date End Date Anna Mullen MD PCP - General 12/03/10 [address] [place] [address] documented as of this encounter
--- OUTSIDE RECORDS SUMMARY | 2022-03-13 18:32 | XMS_ITS | Encounter Summary ---
:1965 Author Organization [facility] [place] [address] Care Team Providers Name Role Phone Anna Mullen MD Primary Care Provider Reason for Visit Reason Onset Date Comments Medication Refill 09/30/2013 Encounter Details Date Type Department Care Team Description 09/30/2013 Refill Solid Organ Transplant at [facility], Kj Rey MD [facility] [place] [address] [place] [address] [phone] (Wo rk) Social History Tobacco Use Types [...] on filedocumented in this encounter Care Teams Banking Officer Relationship Specialty Start Date End Date Anna Mullen MD PCP - General 12/03/10 [address] [place], [place] [id number] documented as of this encounter
--- OUTSIDE RECORDS SUMMARY | 2022-03-13 18:32 | XMS_ITS | Encounter Summary ---
:1965 Author Organization [facility] Address [address] [place] [address] Care Team Providers Name Role Phone Anna Mullen MD Primary Care Provider Reason for Visit Reason Comments Pancreas Transplant Follow-up 08/28/2013 Encounter Details Date Type Department Care Team Description 09/20/2013 Office Visit Solid Organ Nasrin, Need for prophy lactic immunotherapy; [place] [facility] [place] Rey [place] Status post pancreas transplantation [facility] [address] [place] [address] [place] [address] [phone] (Wo rk) Social History Tobacco Use Types [...] Sign Reading Time Taken Comments Blood Pressure 127/70 09/20/2013 9:11 AM EST Pulse 67 09/20/2013 9:11 AM EST Temperature 37 ??C (98.6 ??F) 09/20/2013 9:11 AM EST Respiratory Rate - - Oxygen Saturation - - Inhaled Oxygen Concentration - - Weight 93.1 kg (205 lb 3.2 oz) 09/20/2013 9:11 AM EST Height 182.9 cm (6') 09/20/2013 9:11 AM EST Body Mass Index 27.83 09/20/2013 9:11 AM EST documented in this encounter Progress Notes Crys Mckay RD - 09/20/2013 2:10 PM EST September 20, 2013 Richard Hsu [id number] TRANSPLANT NUTRITION Post-transplant Clinic follow-up note Richard Hsu was seen by Nutrition services on September 20, 2013 for follow up post-pancreas transplant on 08/28/2013. Patient is eating better; he is still taking Boost and Ensure supplements everyday. Weight: 93kg (205#) BMI: 27.8 Weight pre-Txp: 98.4kg (217#) Labs: K+ 4.6 Creat 0.98 Gluc 102 Mg++ 0.66 Phos 3.2 Abl 3.6 Chol 136 Assessment: I provided patient with a copy of his Post-Transplant Nutrition Lab Report and reviewed with him. No issues noted or verbalized. Follow-up Interventions: Follow up with patient when he returns to clinic in a week. Jena Dueñas MD - 09/20/2013 10:31 AM EST Follow-up: Transplant Clinic Date: 09/20/2013 Patient: Richard Hsu Date of Transplant: Transplant Type: Pancreas transplantation alone Transplant Surgeon: Visit Vitals: BP 127/70 Pulse 67 Temp 37 ??C (98.6 ??F) (Oral) Ht 182.9 cm (6') Wt 93.078 kg(205 lb 3.2 oz) BMI 27.83 kg/m2 Diagnosis: 1. Need for prophylactic immunotherapy [...] Diabetic Supplies, Miscellan. Misc Fax form to [facility] medical for testing supplies 10 times per [id number] each 12 ??? levothyroxine (SYNTHROID) 200 mcg [...] Labs: Lab Results Component Value Date CREATININE 0.98 09/20/2013 K 4.6 09/20/2013 GLUCOSE 102 09/20/2013 HCT 29.8* 09/20/2013 HGB 10.0* 09/20/2013 WBC 4.9 09/20/2013 PHOS 3.2 09/20/2013 LIPASE 33 09/20/2013 Problem List: Patient Active Problem List Diagnosis [...] GI ENDOSCOPY performed by CLAYTON BHAKTA at [facility] ENDOSCOPY ??? Upper gi endoscopy, biopsy 12/31/2011 UPPER GASTROINTESTINAL ENDOSCOPY,WITH BIOPSY SINGLE OR MULTIPLE performed by CLAYTON BHAKTA at [facility] ENDOSCOPY ??? Shoulder surgery ??? Carpal tunnel release ??? Appendectomy ??? Musculoskeletal surgery unlisted 10 years carpel tunnel ??? 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 Transplant allograft pancreas 08/28/2013 @PANCREATIC TRANSPLANT performed by Iraj Keller MD at [facility] MAIN OR ??? Transplant, prep donor pancreas 08/28/2013 @PREPARATION CADAVERIC PANCREAS, STANDARD performed by Iraj Keller MD at [facility] MAIN OR FAMILY HISTORY: Family History Problem [...] stopped 1996 History of Present Illness: HPI Patient comes in for follow up. He has been feeling much better since he completed the antibiotic regimen on Thursday. He has also stopped IV fluid support. He is eating ok, moving his bowels twice a dayand stool is more formed and with no diarrhea anymore. He is able to take at least 4 lts of fluids by mouth and his urine output is between 3-3.5 lts in 24 hours. He denies fever, abdominal pain or rigors. He has had some headaches that he calls migraines that he used to have before surgery. He continues with baseline chronic back pain for which he takes naproxen po bid almost daily. ROS: Review of Systems Body mass index is 27.83 kg/(m^2). Physical Exam: Physical Exam NAD, pleasant and cooperative AT, DANIELLE, hydrated Supple, no JVD RRR CLTA bl abd is soft nt nd. Incision closed well healed with two scab areas in the mid- portion. No evidence of infection, no drainage. The umbilical area has a blanchable light pink area that appears improved from last week. Moves all four Alert orientedx3 Neurologically intact Skin anicteric Assessment and Plan: Will remove PICC Patient wants to go back to work and recommended to wait another week. Ok glc control. Immunosuppression reviewed and adjusted: Prograf: 2mg po BID Prednisone: None Cellcept: 750mg po BID Bactrim 80/400 po daily Calcium and phosphorus balance reviewed. Magnesium balance reviewed. RTC: next week. MD: JENA WALTON MD I have seen the patient and reviewed the resident's above history and I agree with the details as written. The assessment and plan were formulated in discussion with me and I agree with them as documented. Mr. Hsu is doing very well. Dr. Keller stopped his IVF on Thursday and he has done well with PO intake over the weekend. We are going to d/c the PICC line today. His glucose levels have been in the 100 - 160 range, 102 today. He has a normal amylase and lipase level. He feels well and has no complaints today. He denies any further fever episodes and the cellulitis has resolved at his wound. His antibiotic course is complete. --Graft function: normoglycemic and normal a/l levels today. We d/c'd the IVF as he is doing very well with PO intake. He will continue to maintain his I/O balance. No PO goal changes today. -- Immunosuppression reviewed and adjusted: Prograf: tacrolimus level is pending. He is currently on 2/2 and his trough level goal is 8 - 10. Prednisone: none Cellcept: 750 mg po bid -- Hypertension management: no adjustments today. His blood pressure is under good control and I have not started Cardizem at this stage. -- Electrolytes: Calcium and phosphorus balance reviewed. Magnesium balance reviewed. -- RTC: one week with a full set of labs. Pharmacy needs addressed. No concerns today. documented in this encounter Plan of Treatment Not on filedocumented as of this encounter Procedures Procedure Name Priority Date/Time Associated Diagnosis Comme nts URINALYSIS WITH STAT 09/20/2013 9:43 Need for prophylactic Results for this REFLEX CULTURE AM EST immunotherapy procedure are in Status post pancreas the res ults transplantation section. DIFFERENTIAL, STAT 09/20/2013 9:40 Results for this AUTOMATED AM EST procedure are i n the results section. TACROLIMUS LEVEL STAT 09/20/2013 9:40 Need for prophylactic Results for this AM EST immunotherapy procedure are in Status post pancreas the res ults transplantation section. RETICULOCYTE COUNT STAT 09/20/2013 9:40 Need for prophylact ic Results for this AM EST immunotherapy procedure are in Status post pancreas the res ults transplantation section. CBC (WITH DIFF) STAT 09/20/2013 9:40 Need for prophylactic Results for this AM EST immunotherapy procedure are in Status post pancreas the res ults transplantation section. URIC ACID STAT 09/20/2013 9:40 Need for prophylactic Res ults for this AM EST immunotherapy procedure are in Status post pancreas the res ults transplantation section. PHOSPHORUS STAT 09/20/2013 9:40 Need for prophylactic Res ults for this AM EST immunotherapy procedure are in Status post pancreas the res ults transplantation section. MAGNESIUM STAT 09/20/2013 9:40 Need for prophylactic Res ults for this AM EST immunotherapy procedure are in Status post pancreas the res ults transplantation section. LIPASE STAT 09/20/2013 9:40 Need for prophylactic Res ults for this AM EST immunotherapy procedure are in Status post pancreas the res ults transplantation section. CHOLESTEROL, TOTAL STAT 09/20/2013 9:40 Need for prophylact ic Results for this AM EST immunotherapy procedure are in Status post pancreas the res ults transplantation section. AMYLASE STAT 09/20/2013 9:40 Need for prophylactic Res ults for this AM EST immunotherapy procedure are in Status post pancreas the res ults transplantation section. COMPREHENSIVE STAT 09/20/2013 9:40 Need for prophylactic Re sults for this METABOLIC PANEL AM EST immunotherapy procedure are in (NON-FASTING) Status post pancreas the re sults transplantation section. documented in this encounter Results (ABNORMAL) Urinalysis with microscopic (09/20/2013 9:43 AM EST) [facility] Method Time Signature Glucose UA Negative [...] UA Clear Clear CERNER MILLENNIU M Spec Midway UA 1.026 1.002 - 1.030 CERNER MIL LENNIUM Color UA Yellow Yellow CERNER MILLENNIUM RBC UA <1 0 - 3 /HPF CERNER MILLENNIUM WBC UA 1 0 - 3 /HPF CERNER MILLENNIUM Squam Epith UA <1 <=4 /HPF CERNER MILLENNI UM Trans Epith UA <1 <=1 /HPF CERNER MILLENNI UM Hyaline Cast UA 7 (H) 0 - 2 /LPF [facility] Specimen Anatomical Collection Method Collection Time Receive d Time (Source) Location / / Volume Laterality Urine specimen 09/20/2013 9:43 AM 014 9:50 (specimen) EST AM EST Resulting Agency Comment Spec In Lab Kj Alexandra MD URINE ORDERABLES Performing Organization Address City/State/ZIP Code Phon e Number [place] [phone]OS[address] LAB[address] CERNER MILLENNIUM (ABNORMAL) Differential, Automated (09/20/2013 9:40 AM EST) [facility] Method Time Signature Neutrophils % 84.3 (H) 34.0 - CERNER 71.0 % MILLENNIUM Neutr Abs (ANC) 4.14 1.50 - CERNER 6.30 MILLENNIUM x10(3)/mc L Lymphocytes % 7.9 (L) 19.0 - CERNER 53.0 % MILLENNIUM Lymphocytes Abs 0.4 (L) 1.0 - 3.6 CERNER x10(3)/mc MILLENNIUM L Monocytes % 2.8 (L) 4.0 - CERNER 13.0 % MILLENNIUM Monocyte Abs 0.1 (L) 0.2 - 1.0 CERNER x10(3)/mc MILLENNIUM L Eosinophils % 2.4 0.0 - 7.0 CERNER % MILLENNIUM Eosinophils Abs 0.1 0.0 - 0.5 CERNER x10(3)/mc MILLENNIUM L Basophils % 0.6 0.0 - 2.0 CERNER % MILLENNIUM Basophils Abs 0.0 0.0 - 0.2 CERNER x10(3)/mc MILLENNIUM L Immature Gran % 2.00 (H) 0.00 - CERNER 0.66 % MILLENNIUM Comment: Immature granulocytes(IG's)percentage an d absolute count will include metamyelocytes, myelocytes, and promyelo cytes. Blood smears from CBCs yielding IG's will be scanned manually for concor dance. If this scan disagrees with the automated IG or if promyelocytes are not ed, a manual differential will be performed. Kym Gran Abs 0.10 (H) 0.00 - 0.05 x10(3)/mcL CER NER MILLENNIUM Specimen Anatomical Collection Method Collection Time Receive d Time (Source) Location / / Volume Laterality Blood specimen 09/20/2013 9:40 AM 014 9:44 (specimen) EST AM EST Kj Alexandra MD HEMATOLOGY ORDERABLES Performing Organization Address [facility] e [address] CERNER MILLENNIUM Amylase (09/20/2013 9:40 AM EST) athologist Signature Amylase 48 28 - 100 CERNER unit/L MILLENNIUM Specimen Anatomical Collection Method Collection Time Receive d Time (Source) Location / / Volume Laterality Blood specimen 09/20/2013 9:40 AM 014 9:43 (specimen) EST AM EST Resulting Agency Comment Spec In Lab Kj Alexandra MD CHEMISTRY ORDERABLES Performing Organization Address City/[facility] Phon e [address] CERNER MILLENNIUM Lipase (09/20/2013 9:40 AM EST) athologist Signature Lipase 33 0 - 60 CERNER unit/L MILLENNIUM Specimen Anatomical Collection Method Collection Time Receive d Time (Source) Location / / Volume Laterality Blood specimen 09/20/2013 9:40 AM 014 9:43 (specimen) EST AM EST Resulting Agency Comment Spec In Lab Kj Alexandra MD CHEMISTRY ORDERABLES Performing Organization Address City/State/ZIP Code Phon e Number [place] [phone]OS[address] LAB[address] CERNER MILLENNIUM (ABNORMAL) Comprehensive metabolic panel (non-fasting) (09/20/2013 9:40 AM EST) athologist Signature Glucose Lvl 102 60 - 199 CERNER mg/dL MILLENNIUM Comment: Diabetes: >=200 mg/dL plus symp toms BUN 10 10 - 20 mg/dL CERNER MILLENNIU M Creatinine 0.98 0.80 - 1.50 mg/dL CERNER MILL ENNIUM Comment: Please note that the pediatric reference intervals supplied above were not validated at [facility] [place] Results from [...] 10.5 mg/dL CERNER LALA NIUM Total Protein 7.1 6.4 - 8.3 gm/dL CERNER MIL LENNIUM Albumin 3.6 3.2 - 5.2 gm/dL CERNER MILLENN IUM AST 18 0 - 39 unit/L CERNER MILLENNIU M ALT 30 0 - 55 unit/L CERNER MILLENNIU M Alk Phos 228 (H) 40 - 120 unit/L CERNER MILLENN IUM Total Bilirubin 0.5 0.2 - 1.3 mg/dL CERNER M ILLENNIUM [...] Location / / Volume Laterality Blood specimen 09/20/2013 9:40 AM 014 9:43 (specimen) EST AM EST Resulting Agency Comment Spec In Lab Kj Alexandra MD CHEMISTRY ORDERABLES Performing Organization Address City/State/ZIP Code Phon e Number [address] CERNER MILLENNIUM (ABNORMAL) Magnesium (09/20/2013 9:40 AM EST) P athologist Signature Magnesium 0.66 (L) 0.69 - 1.07 CERNER mmol/L MILLENNIUM Specimen Anatomical Collection Method Collection Time Receive d Time (Source) Location / / Volume Laterality Blood specimen 09/20/2013 9:40 AM 014 9:43 (specimen) EST AM EST Resulting Agency Comment Spec In Lab Kj Alexandra MD CHEMISTRY ORDERABLES Performing Organization Address City/[facility]/ZIP Code Phon e Number [address] CERNER MILLENNIUM Phosphorus (09/20/2013 9:40 AM EST) P athologist Signature Phosphorus 3.2 2.5 - 4.5 CERNER mg/dL MILLENNIUM Specimen Anatomical Collection Method Collection Time Receive d Time (Source) Location / / Volume Laterality Blood specimen 09/20/2013 9:40 AM 014 9:43 (specimen) EST AM EST Resulting Agency Comment Spec In Lab Kj Alexandra MD CHEMISTRY ORDERABLES Performing Organization Address City/[facility]/[place] [address] CERNER MILLENNIUM Uric acid (09/20/2013 9:40 AM EST) P athologist Signature Uric Acid 6.3 3.5 - 8.5 CERNER mg/dL MILLENNIUM Specimen Anatomical Collection Method Collection Time Receive d Time (Source) Location / / Volume Laterality Blood specimen 09/20/2013 9:40 AM 014 9:43 (specimen) EST AM EST Resulting Agency Comment Spec In Lab Kj Alexandra MD CHEMISTRY ORDERABLES Performing Organization Address [facility] [place] [address] CERNER MILLENNIUM (ABNORMAL) Reticulocyte Count (09/20/2013 9:40 AM EST) Patholo gist Method Time Signature Retic Ct % 2.5 (H) 0.5 - 2.4 CERNER % MILLENNIUM Retic Ct Abs 0.090 0.027 - CERNER 0.095 MILLENNIUM x10(6)/mc L Immature Retic% 22.2 (H) 2.3 - CERNER 15.9 % MILLENNIUM Reticulated Hgb 24.5 (L) 28.5 - CERNER 38.9 pg MILLENNIUM Plat Immature % 2.9 0.0 - 7.4 CERNER % MILLENNIUM Specimen Anatomical Collection Method Collection Time Receive d Time (Source) Location / / Volume Laterality Blood specimen 09/20/2013 9:40 AM 014 9:44 (specimen) EST AM EST Resulting Agency Comment Spec In Lab Kj Alexandra MD HEMATOLOGY ORDERABLES Performing Organization Address City/[facility]/[place] [address] CERNER MILLENNIUM Tacrolimus level (09/20/2013 9:40 AM EST) athologist Signature Tacrolimus Lvl 5.9 ng/mL CERNER MILLENNIUM Comment: Trough therapeutic: 5-15 ng/mL Specimen Anatomical Collection Method Collection Time Receive d Time (Source) Location / / Volume Laterality Blood specimen 09/20/2013 9:40 AM 014 (specimen) EST 11:53 AM EST Resulting Agency Comment Spec In Lab Kj Alexandra MD CHEMISTRY ORDERABLES Performing Organization Address City/[facility] [place] [address] CERNER MILLENNIUM (ABNORMAL) CBC (with Diff) (09/20/2013 9:40 AM EST) athologist Signature WBC 4.9 4.0 - 10.0 CERNER x10(3)/mcL MILLENNIUM RBC 3.53 (L) 4.63 - CERNER 6.08 MILLENNIUM x10(6)/mcL Hemoglobin 10.0 (L) 13.7 - CERNER 17.5 gm/dL MILLENNIUM Hematocrit 29.8 (L) 40.0 - CERNER 51.0 % MILLENNIUM MCV 84.4 79.0 - CERNER 92.0 fL MILLENNIUM MCH 28.3 25.6 - CERNER 32.2 pg MILLENNIUM MCHC 33.6 32.0 - CERNER 36.5 gm/dL MILLENNIUM Platelets 571 (H) 145 - 370 CERNER x10(3)/mcL MILLENNIUM RDWSD 40.1 35.0 - CERNER 46.0 fL MILLENNIUM RDWCV 13.2 10.9 - CERNER 14.4 % MILLENNIUM MPV 9.2 9.0 - 12.0 CERNER fL MILLENNIUM Specimen Anatomical Collection Method Collection Time Receive d Time (Source) Location / / Volume Laterality Blood specimen 09/20/2013 9:40 AM 014 9:44 (specimen) EST AM EST Resulting Agency Comment Spec In Lab Kj Alexandra MD HEMATOLOGY ORDERABLES Performing Organization Address City/[facility]/[place] [address] [facility] Cholesterol, total (09/20/2013 9:40 AM EST) P athologist Signature Chol, Total 136 <=199 mg/dL [facility] Comment: Recommendations of the NCEP Adult Treatm ent Panel for the following risk cutoff thresholds for the [place] popul[place] n: Desirable: <200 mg/dL Borderline High: 200-239 mg/dL High: > or = 240 mg/dL Specimen Anatomical Collection Method Collection Time Receive d Time (Source) Location / / Volume Laterality Blood specimen 09/20/2013 9:40 AM 014 9:43 (specimen) EST AM EST Resulting Agency Comment Spec In Lab Kj Alexandra MD CHEMISTRY ORDERABLES Performing Organization Address City/State/ZIP Code Phon e Number [address] [facility] documented in this encounter Visit Diagnoses Diagnosis Need for prophylactic immunotherapy Status post pancreas transplantation 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 documented in this encounter Care Teams Biologist Relationship Specialty Start Date End Date Anna Mullen MD PCP - General 12/03/10 [address] [place] [address] documented as of this encounter
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
--- OUTSIDE RECORDS SUMMARY | 2022-03-13 18:32 | XMS_ITS | Encounter Summary ---
:1965 Author Organization [facility] [address] Care Team Providers Name Role Phone Anna Mullen MD Primary Care Provider Encounter Details Date Type Department Care Team Description 2013 External Results [place] [address] Social History Tobacco Use Types Packs/Day [...] Name Priority Date/Time Associated Diagnosis Comme nts TISSUE TYPING, ABO AND CROSSMATCH Routine 08/27/2013 documented in this encounter Results Scan Doc: Tissue Typing, ABO,and Crossmatch (08/27/2013) Narrative This result has an attachment that is no t available. Historical Provider MEDIA MGR SCAN EXT ORDR/RSLT documented in this encounter Visit Diagnoses Not on filedocumented in this encounter Care Teams Submarine Advisory Team Watch Officer Relationship Specialty Start Date End Date Anna Mullen MD PCP - General 12/03/10 [address] [place] [address] documented as of this encounter
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
--- OUTSIDE RECORDS SUMMARY | 2022-03-13 18:33 | XMS_ITS | Encounter Summary ---
:1965 Author Organization [facility] [place] [address] Care Team Providers Name Role Phone Anna Mullen MD Primary Care Provider Encounter Details Date Type Department Care Team Description 08/28/2013 Anesthesia Event Main Operating Room Annika Price MD [facility] [place] [address] [facility] Haleigh Hernandez MD [facility] [place] [address] [place] [address] Anesthesia Record Procedure Summary Procedure Name Responsible Anesthesia Start Anesthesia Stop Anesthesiologist Time Time @PANCREATIC Annika Solis MD 08/28/13 0618 3 1058 TRANSPLANT (WRVU 37.8) (N/A Abdomen) Events Date Time Event Comment 08/28/2013 0618 Start 0632 An Start Data 0632 AN Verify 0639 An Induction 0642 An Intubation 0726 Anesthesia Ready 0737 0756 Procedure Start 1053 Extubation/LMA Out 1053 an stop data 1058 Stop Name Total fentaNYL 525 mcg IV Lidocaine 50 mg Propofol 200 mg Rocuronium 130 mg Ondansetron 4 mg Neostigmine 4 mg Glycopyrrolate 0.4 mg piperacillin-tazobactam (ZOSYN) IV (Alternative Adult) infusion 4.5 g alemtuzumab (CAMPATH) 30 mg in sodium chloride 0.9% 10 1 mL infusion 30 mg fluconazole 200mg in sodium chloride 0.9% 100mL 200 mg ganciclovir (CYTOVENE) 425 mg in sodium chloride 0.9% 108.5 mL 427.5 mg Heparin 2,500 Units Sodium Bicarbonate 8.4% 25 mEq Insulin Regular Human 12 Units Lactated Ringers 3,600 mL albumin (human) 25% 50 mL intravenous solution 0 mL Sodium Chloride 0.9% 1,000 mL Agents Name Sevoflurane (et) Desflurane (et) Blood No blood administrations on file. Lines, Drains, and Airways Type Details Placement Removal Incision 08/28/13; 0810; abdomen 08/28/13 0810 by Jameel Casey RN Lumbar/CSF Drain 08/28/13; 1003; Right; 08/28/13 1003 by abdomen Jameel Casey RN PIV 07/21/11; 0639; 07/21/11 0639 by 08/28/13 1023 b y 08/28/13; 1023 Anita Oneil RN [place]ord, Lind say D, RN PIV 07/21/11; 0645; 07/21/11 0645 by 08/28/13 1023 b y 08/28/13; 1023 Anita Oneil RN [place], Lind say D, RN PIV 12/31/11; 0818; 12/31/11 0818 by 08/28/13 1023 b y 08/28/13; 1023 Maia Louis RN [place], Andres Calhoun RN PIV 03/15/12; 0845; 03/15/12 0845 by 08/28/13 1023 b y 08/28/13; 1023 Jameel Vasquez RN [place], Lind say D, RN PIV 08/28/13; 0200; 08/28/13 0200 by 09/01/13 1040 b y 09/01/13; 1040 Rachel Wu RN Heinrichs, Dorothy W, RN PIV 08/28/13; 0200; 08/28/13 0200 by 09/01/13 1040 b y 09/01/13; 1040 Rachel Wu RN Heinrichs, Dorothy W, RN (RETIRED) ETT Type: Cuffed; ETT 08/28/13 0702 by 08/28/13 1053 by Non-Surgical Airway Size: 7.5 mm Elliott Mascorro MD (RETIRED) Arterial 20 G; Radial 08/28/13 0751 by 08/31/13 000 0 by LIne Julia Taylor RN (RETIRED) Central 9 Fr; Left; Internal 08/28/13 0752 by 08/30/13 0000 by Line Jugular Julia Taylor RN Assessment/Interventi on - triple lumen Urethral Catheter 08/28/13; 0800; 08/28/13 0800 by 08/31/13 1208 by indwelling double lumen Michelle Magana RN Em mons, Bruce W, catheter; 08/31/13; [employer] 1208 documented in this encounter Social History Tobacco Use Types Packs/Day Years Used Date Never Smoker Smokeless Tobacco: Never Used Alcohol Use Standard Drinks/Week Comments No 0 (1 standard drink = 0.6 oz pure alcoho l) history of abuse, stopped 1996 Sex Assigned at Date Recorded Male 05/29/2021 11:28 PM EDT documented as of this encounter OR Notes Anesthesia Postprocedure Evaluation - Fausto Mascorro - 08/28/2013 11:45 AM EST Patient: Richard Hsu Procedure(s) Performed: Procedure(s): @PANCREATIC TRANSPLANT @PREPARATION CADAVERIC PANCREAS, STANDARD Actual Anesthetic: general Patient location: PACU Post-op pain: Adequate analgesia Post-op nausea: no nausea or vomiting Last Vitals: Filed Vitals: 08/28/13 1130 BP: 122/56 Pulse: 85 Temp: Resp: 16 Post-op cardiovascular and respiratory status: is stable Level of consciousness: awake, alert and oriented Complications: no apparent complications and tolerated the procedure well Fluid Status: normal Anesthesia Preprocedure Evaluation - Vibha Carrera - 08/28/2013 5:04 AM EST Pre-Anesthesia Evaluation for: Richard Hsu a 47 y.o. male. Procedure(s): @PANCREATIC TRANSPLANT Patient Active Problem List Diagnosis ??? Diabetes mellitus -on insulin pump ??? Gastroparesis due to DM ??? Stroke-like symptoms ??? Hypertension ??? Edema -possibly due to norvasc ??? Migraine ??? LBP radiating to right leg Past Medical History Diagnosis Date ??? Severe [...] GI ENDOSCOPY performed by CLAYTON BHAKTA at [facility] END[facility]COPY ??? Upper gi endoscopy, biopsy 12/31/2011 UPPER GASTROINTESTINAL ENDOSCOPY,WITH BIOPSY SINGLE OR MULTIPLE performed by CLAYTON BHAKTA at [facility] ??? Shoulder surgery ??? Carpal tunnel release ??? Appendectomy ??? Musculoskeletal surgery unlisted 10 years carpel tunnel ??? Brain surgery 1977 stroke paralyze left side neck down History Substance Use Topics ??? Smoking status: Never Smoker ??? Smokeless tobacco: Never Used ??? Alcohol Use: No Comment: history of abuse, stopped 1996 History Drug Use No Allergies Allergen Reactions ??? Nexium (Esomeprazole Magnesium) Diarrhea Any acid reflux medication causes severe diarrhea ??? Prilosec (Omeprazole Magnesium) Diarrhea ??? Reglan (Metoclopramide Hcl) TD ??? Simvastatin Medications: MAR and/or home medications have been reviewed. Physical Exam: There were no vitals filed for this visit. There is no height or weight on file to calculate BMI. Airway Assessment: Mallampati: I TM distance: >3 FB Neck ROM: full Cardiovascular Assessment: Pulmonary Assessment: Dental Assessment: - normal exam Misc Assessment: IV access: Peripheral line Other exam findings: R PIV x2 - 22g, 20g Anesthesia Plan: ASA 3 general, with a(n) intravenous induction 47M with DM1 here for pancreas transplant. PMHx includes GERD/reflux (gets symptoms any time he liesflat despite medication), angina which has been evaluated by cardiology (they found no evidence of aprior HI and no occlusive coronary disease amenable to intervention on cath; he likely has subendocardial ischemia due to his long standing diabetes), h/o stroke at age 11 now with residual left sided weakness and decreased sensation, right cubital tunnel syndrome with numbness, right leg pain due to scoliosis and a pinched nerve (per patient). Discussed general anesthesia, a line, and central line placement with patient and his family. Questions answered and risks discussed. Consent signed and placed in chart. Plan GETA with RSI, a line, central line. Stress echo 05/2013: 1. BASELINE: Left ventricular chamber size, wall thickness, global and segmental systolic function are within normal limits. Ejection fraction is estimated to be 60%. Right ventricular chamber size, wall thickness, and systolic function are within normal limits. PASP is 18 mmHg + RAP. Doppler assessment is consistent with normal left sided filling pressure. Normal chamber dimensions. There is borderline mitral valve prolapse of the anterior leaflet. EKG: normal sinus rhythm. 2. STRESS: The peak dose of Dobutamine infused was 40 ug/kg/min. The patient was administered 1.0 mg of Atropine. The patient performed hand squeezes to accelerate heart rate. Peak ZU=290 (67% MPHR despite holding carvedilol), peak BP =175/68 mmHg for a DP=20.5K. No symptoms, ischemic EKG changes or arrhythmias. All palencia increased in contractile thickening with no segmental wall motion abnormalties and EF increased from 60 to 75%. 3. IMPRESSION: Non diagnostic stress echocardiogram secondary to not attaining target HR, but no EKG or imaging evidence for ischemia at the level of stress attained, and moderate workload. Region - Other Informed Consent: Anesthetic plan and risks discussed with patient and father. Use of blood products discussed with patient and mother whom consented to blood products. Plan discussed with resident and attending. [facility] [place]. Assessment: documented in this encounter Plan of Treatment Not on filedocumented as of this encounter Visit Diagnoses Not on filedocumented in this encounter Administered Medications Inactive Administered Medications - up to 3 most recent administrations Medication Order MAR Action Action Date Dose Rate Site albumin human 25 % 50 mL bottle Given 08/28/2013 9:17 AM EST 12.5 g PRN, Starting on 08/28/13 at 0917, Until 08/28/13 at 1058, Other, Anesthesia Intra-op, Routine Given 08/28/2013 8:59 AM EST 12.5 g alemtuzumab (CAMPATH) 30 mg in sodium New Bag 08/28/2013 7:[address] 30 mg chloride 0.9% 101 mL infusion 30 mg, Intravenous, RESIDENTIAL DOOR INSTALLER TO O.R., 1 dose, On 08/28/13 at 0500, Administer over 2 Hours, Send to operating room with patient. To be given in the OR. fentaNYL 50mcg/mL injection Given 08/28/2013 10:43 AM EST 25 mcg PRN, Starting on 08/28/13 at 0638, Until 08/28/13 at 1058, Pain, Anesthesia Intra-op, Routine Given 08/28/2013 9:17 AM EST 50 mcg Given 08/28/2013 8:57 AM EST 50 mcg fluconazole 200mg in sodium chloride 0.9% Given 08/28/2013 7:46 AM EST 200 mg 100mL 200 mg, Intravenous, ONCE, 1 dose, On 08/27/13 at 2345, Administer over 60 Minutes, Administer within 1 hour of incision. To be given in the OR., Day of Surgery (Day of Procedure), Indication for (Active or Suspected): Prophylaxis, Restricted Antibiotic: Please indicate the most appropriate choice: Pre-approved Indication (State the indication in Comments field) ganciclovir (CYTOVENE) 425 mg in sodium Given 08/28/2013 7:44 AM EST 427.5 mg chloride 0.9% 108.5 mL 425 mg, Intravenous, RESIDENTIAL DOOR INSTALLER TO O.R., 1 dose, On 08/28/13 at 0500, Administer over 60 Minutes, Creatinine Clearance greater than or equal to 70 mL/min. To be given in the OR. Based on 5mg/kg/dose--using dose rounding to nearest 25mg dose. To use adjusted body wt per md., Indication for (Active or Suspected): Prophylaxis glycopyrrolate (ROBINUL) injection Given 08/28/2013 10:32 AM EST 0.4 mg PRN, Starting on 08/28/13 at 1032, Until 08/28/13 at 1058, Anesthesia Intra-op, Routine heparin (porcine) injection Given 08/28/2013 8:37 AM EST 2,500 Units PRN, Starting on 08/28/13 at 0837, Until 08/28/13 at 1058, Anesthesia Intra-op, Routine insulin regular human (HUMULIN;NOVOLIN) Given 08/28/2013 10:03 A M EST 4 Units VIAL injection PRN, Starting on 08/28/13 at 0936, Until 08/28/13 at 1058, Anesthesia Intra-op, Routine Given 08/28/2013 9:36 AM EST 8 Units lactated ringers infusion New Bag 08/28/2013 6:32 AM EST mL CONTINUOUS PRN, Starting on 08/28/13 at 0632, Until 08/28/13 at 1058, Anesthesia Intra-op lidocaine (PF) (XYLOCAINE) 100 mg/5 mL (2 %) Given 3 6:38 AM EST 50 mg injection PRN, Starting on 08/28/13 at 0638, Until 08/28/13 at 1058, Anesthesia Intra-op, Routine neostigmine (PROSTIGMINE) injection Given 08/28/2013 10:32 AM EST 4 mg PRN, Starting on 08/28/13 at 1032, Until 08/28/13 at 1058, Anesthesia Intra-op, Routine ondansetron (ZOFRAN) injection Given 08/28/2013 10:38 AM EST 4 mg PRN, Starting on 08/28/13 at 1038, Until 08/28/13 at 1058, Nausea, Anesthesia Intra-op, Routine piperacillin-tazobactam (ZOSYN) IV Given 08/28/2013 7:38 AM EST 4.5 g (Alternative Adult) infusion 4.5 g, Intravenous, RESIDENTIAL DOOR INSTALLER TO O.R., 1 dose, On 08/28/13 at 0430, Administer over 30 Minutes, Administer within 1 hour of incision. To be given in the OR., Day of Surgery (Day of Procedure), Indication for (Active or Suspected): Prophylaxis propofol (DIPRIVAN) 10 mg/mL bolus injection Given 6:38 AM EST 200 mg (Anesthesia) PRN, Starting on 08/28/13 at 0638, Until 08/28/13 at 1058, Anesthesia Intra-op rocuronium (ZEMURON) injection Given 08/28/2013 8:45 AM EST 10 mg PRN, Starting on 08/28/13 at 0639, Until 08/28/13 at 1058, Anesthesia Intra-op, Routine Given 08/28/2013 7:55 AM EST 30 mg Given 08/28/2013 6:39 AM EST 90 mg sodium bicarbonate 8.4 % (1 mEq/mL) inje ction Given 08/28/2013 9:03 AM EST 25 mEq PRN, Starting on 08/28/13 at 0903, Until 08/28/13 at 1058, Anesthesia Intra-op, Routine sodium chloride 0.9% infusion New Bag 08/28/2013 6:18 AM EST mL CONTINUOUS PRN, Starting on 08/28/13 at 0618, Until 08/28/13 at 1058, Anesthesia Intra-op documented in this encounter Care Teams Forensic Ballistics Expert Relationship Specialty Start Date End Date Anna Mullen MD PCP - General 12/03/10 [address] [place] [address] documented as of this encounter
--- OUTSIDE RECORDS SUMMARY | 2022-03-13 18:33 | XMS_ITS | Encounter Summary ---
:1965 Author Organization [facility] [place] [address] Care Team Providers Name Role Phone Anna Mullen MD Primary Care Provider Encounter Details Date Type Department Care Team Description 08/29/2013 External Results [place] [address] Social History Tobacco Use Types Packs/Day [...] on filedocumented in this encounter Care Teams [employer] Fire Support Planner Relationship Specialty Start Date End Date Anna Mullen MD PCP - General 12/03/10 [address] [place] [address] documented as of this encounter
--- OUTSIDE RECORDS SUMMARY | 2022-03-13 18:33 | XMS_ITS | Encounter Summary ---
:1965 Author Organization [facility] [place] [address] Care Team Providers Name Role Phone Anna Dent MD Primary Care Provider Encounter Details Date Type Department Care Team Description 08/27/2013 - Hospital Encounter 4 [place] Leilani Garcia Diabete s mellitus; 09/02/2013 Rafael Melendrez MD Immunosuppression; [facility] [address] [facility] [place], [place] SURGERY [id number] [place], [place] [phone] [facility] Social History Tobacco Use Types Packs/Day Years Used Date Never Smoker Smokeless Tobacco: Never Used Alcohol Use Standard Drinks/Week Comments No 0 (1 standard drink = 0.6 oz pure alcoho l) history of abuse, stopped 1996 Sex Assigned at Date Recorded Male 05/29/2021 11:28 PM EDT documented as of this encounter Last Filed Vital Signs Vital Sign Reading Time Taken Comments Blood Pressure 137/86 09/02/2013 7:57 AM EST Pulse 64 09/02/2013 7:57 AM EST Temperature 36.6 ??C (97.9 ??F) 09/02/2013 7:57 AM EST Respiratory Rate 16 09/02/2013 7:57 AM EST Oxygen Saturation 100% 09/02/2013 7:57 AM EST Inhaled Oxygen Concentration - - Weight 98.7 kg (217 lb 9.5 oz) 09/01/2013 5:00 AM EST Height 182.9 cm (6') 08/28/2013 1:07 PM EST Body Mass Index 29.51 08/28/2013 1:07 PM EST documented in this encounter Discharge Instructions Patient InstructionsLonnie Yeung MD - 09/02/2013 11:08 AM EST Patient Instructions: Call your doctor if: Monitor your incision for the following signs and symptoms of infection: Redness or swelling, (some mild redness around the incision and the staple/suture sites is normal) Drainage or bleeding Fever over 100.5 F Increased pain or discomfort at the incision site Persistent vomiting or the inability to keep foods or fluids down in a 24 hour period Your blood glucose levels rise above 200 You have new pain on the right sideof your abdomen Or any other concern, such as trouble breathing, pain with urination, or new leg pain/swelling. Also, please call with increasing abdominal pain, firmness, stop passing gas for an extended period of time, or bloody bowel movements or vomitus. CALL THE [facility] DURING WORKING HOURS AT [phone], OR CALL AFTER CLINIC HOURS, WEEKENDS AND HOLIDAYS: ASK FOR THE SURGERY RESIDENT CRIMINAL LEGAL ASSISTANT IF ANY OF THE ABOVE OCCUR. Activity level: No heavy lifting until cleared to do so at follow-up appointment. Otherwise activityas tolerated by comfort level. Diet: You may resume your regular diet as tolerated. You must drink 5-6 liters of fluid daily. Checkyour blood glucose before meals and nightly until directed otherwise. Driving: No driving while still taking opioid pain medications (wait at least 6- 8 hours since last dose). No driving if you are still sore from surgery as it may limit your ability to react quickly if necessary. Shower/Bath: You may shower and get incision(s) wet. Pat dry immediately following. Do not scrub them vigorously for the next 2-3 weeks. Do not soak incision(s) for the next 2 weeks (i.e. soaking in bath or swimming) as this may promote a wound infection. Wound Care: Wash incision with soap and water, pat dry, and leave open to air. Allow steri-strips (pieces of tape) to fall off on their own if you have them. You may cover with gauze as needed to prevent incision rubbing on clothes or for any seepage. Azar Stuart Drain Nursing Discharge Instructions: Inspect the skin around the insertion site daily for signs of infection such as: Redness or swelling Pus or drainage Fever over 100 F (38 C) or chills Increased pain or discomfort at the insertion site Washing instructions: Gently wash the skin with tap water and pat dry Rinse and air dry the skin before wearing clothes Tube Maintenance: Make sure the tube is properly secured to prevent accidental removal. Strip tubing and empty your drain in the morning and evening Record the drainage amount in the chart provided by your nurse. Call Sabrina Jason with output less than 30cc over 24hrs for TWO CONSECUTIVE DAYS for drain removal. Contact your physician if: there is a signifigant change in drainage amount or color. if the tube becomes dislogged. if you notice signs of infections (see above). Medications: It is extremely important that you take all your medications as directed. Call if any instructions are unclear. - The instructions for Bactrim have changed after your prescription was filled. Take two tablets perday three days per week (Thursday, Thursday, Thursday) rather than one tablet daily. Pain control: you may find that all you need for adequate pain control are over the counter medications including acetaminophen. However, you will be provided with some prescription pain medication that you can take for severe pain. You may take over the counter pain medications for post-operative discomfort and the prescription pain medication for severe pain. Acetaminophen 650 mg by mouth every six hours as needed. Naproxen twice daily as needed. Follow up Appointments: The following appointments have been scheduled for you: Future Appointments Date Time Provider Department Center 09/06/2013 7:50 AM Leena Nicholson MD [facility] 09/06/2013 10:30 AM Kj Alexandra MD [facility] 10/28/2013 8:00 AM Divya Coles MD [facility] 10/28/2013 9:30 AM Sheila Landeros RN [facility] 11/07/2013 1:45 PM Geoffrey Martinez MD [facility] You will need lab work before your September [address] Alexandra, please go to 3L by 9:30and take your morning prograff dose after the labs are drawn. documented in this encounter Medications at Time of Discharge Medication Sig Dispensed Refills Start Date End Date sildenafil (VIAGRA) 100 Take 1 tablet by mouth as ne eded for Erectile Dysfunction. 90 day supply 60 tablet 6 09/14/2012 mg tablet Dx code :250.60 traMADol (ULTRAM) 50 mg Take 100 mg by mouth 0 02/22/2016 tablet 2 times daily. polyethylene glycol Take 17 g by mouth [...] every 3 hours as needed for Pain. sulfamethoxazole-trimet Take 1 tablet by 13 tablet 5 201309/06/2013 hoprim (BACTRIM DS) mouth three times a 800-160 mg per tablet week for 30 days. potassium phosphate, Take 1 tablet by 90 tablet 6 4 09/06/2013 monobasic, (K-PHOS) 500 mouth 4 times daily. mg tablet CELLCEPT 250 mg capsule Take 2 capsules by 180 capsule 6 10/201309/06/2013 mouth 2 times daily. S/P Pancreas Transplant 08/28/2013 Dx V42.83 Diabetic Supplies, Fax form to [facility] 100 each 09/02/2013 0 05/10/[address] [facility] medical for testing supplies 10 times per day PROGRAF 1 mg capsule Take 2 capsules by 120 capsule 6 201309/06/2013 mouth 2 times daily. S/P Pancreas transplant V42.83 valGANCiclovir Take 2 tablets by 60 tablet 6 08/29/201302/2014 (VALCYTE) 450 mg tablet mouth 2 times daily. S/P Pancreas Transplant 08/28/2013 Dx V42.83 PROGRAF 1 mg capsule Take 2 capsules by 60 capsule 6 013 09/06/2013 mouth 2 times daily. S/P Pancreas Transplant 08/28/2013 Dx V42.83 DILTiazem (DILACOR XR) Take 1 capsule by 30 capsule 6 201209/06/2013 120 mg 24 hr capsule mouth daily. fluconazole (DIFLUCAN) Take 1 tablet by 10 tablet 6 013 2013 200 mg tablet mouth daily. Magnesium Gluconate 27 Take 1 tablet by 90 tablet 6 013 09/06/2013 mg (500 mg) Tab mouth 3 times daily. pantoprazole (PROTONIX) Take 1 tablet by 90 tablet 3 201209/06/2013 40 mg tablet mouth daily. levothyroxine Take 1 [...] mouth 0 10/18/2013 tablet 2 times daily. Newton-3 Fatty Take 5,000 mg by 0 01/08/201109/06 Acids-Vitamin E (FISH mouth daily. OIL) 1,000 mg Cap hydrOXYzine (VISTARIL) Take by mouth 2 0 12/25/19 11 10/28/2013 25 mg capsule times daily as needed. CALCIUM CARBONATE Take 1,200 mg by 0 12/24/2010 0 09/06/2013 (CALCIUM 600 ORAL) mouth daily. multivitamin Take 1 tablet by 0 2013 (THERAGRAN) tablet mouth daily. aspirin 325 mg tablet Take 325 mg by mouth 0 05/31/2014 daily. documented as of this encounter Progress Notes Ashley Sanders RN - 09/02/2013 1:55 PM EST Pt discharged home with family. Pt home with VNA. Discharged summary faxed to [facility]. Message left with intake nurse. PICC line maintained. Reviewed discharge summary with patient, all questions answered. Prescriptions picked up by . Reviewed discharge teaching with patient, pt verbalizes good understanding. Crys Tellez RD - 09/02/2013 11:52 AM EST Patient continues with less than acceptable serum K+ level (3.1 today; 3.0 yesterday). He has been initiated on KPhos 4 times daily, which should help to some degree. Once patient is home he also uses a salt substitute (KCl) in place of regular salt (NaCl). I instructed him to also include a few high potassium foods or fluids per day as well. There is no weight for today in the system. I have noted that the plan is for discharge home today. I will follow up with patient when he RTC on Thursday next week. Bina Ordonez - 09/02/2013 10:59 AM EST Shower cover provided and fitted to patient. Teaching done with patient and . Yolie Lopez RN - 09/01/2013 5:52 PM EST Transplant Education Note: Reviewed Transplant Education sheet with patient and . Pt. Demonstrated competence with Diet, fluid intake, intake-output reporting, vital signs, gerald drain and drain care, medications (will be reviewed by pharmacist prior to discharge), voiding (pt. Already voiding freely and without difficulty in large amounts, signs and symptoms of rejection (including graft thrombosis), PICC line care, and level of activity. 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 Is clearly able to provide at-home care and IV fluids. Supplies for drain, incision care, I and O measuring given to patient. Pt. Appears ready for discharge from an education standpoint. Team will continue to reinforce. Crys Tellez RD - 09/01/2013 4:23 PM EST TRANSPLANT NUTRITION Post-Transplant Discharge Diet Instruction This content writer met with Richard Hsu a 47 year old male for diet teaching prior to discharge on 09/02/2013 post-pancreas transplant of 08/28/2013. Diet RX as inpatient: Regular Diet teaching done for [place], NCS, low saturated fat/cholesterol diet with high phosphorus, and adequate protein intake for wound healing, to preserve LBM, and prevent infection, and provide adequate hydration. Weight: 98.7kg (217.5#) Weight on admission: 98.4kg (217#) BMI: 29.5 IBW: 88.6kg (~195#) Labs Noted: K+ 3.0 BUN 12 Creat 0.78 Gluc 108 Ca++ 8.2 Mg++ 0.76 Phos 2.6 Assessed needs: Requirements assessed at ~2200kcal and 132gms protein per day for the initial 4-6 weeks. Once wound is well-healed, recommend no more than ~88gms protein per day. Summary/Plan: Discussed diet modifications post-pancreas transplant and rationale with patient. Patient verbalizesvery good comprehension. Provided the following printed information with means for contact: Nutrition Issues After Tranplant High Phosphorus Foods List High Magnesium Foods List Follow up with patient when returns to Transplant clinic, which is twice per week for the first few weeks. Remain available for questions/concerns. Jordyn Levine - 09/01/2013 12:15 PM EST Inpatient Transplant Medication Discharge Counseling Encounter Date: September 01, 2013 Mr. Richard Hsu is a 47 y.o. male s/p pancreas transplant POD # 4 Allergies: Nexium; Prilosec; Reglan; and Simvastatin Discharge Medications as of September 01, 2013: Immunosuppressives: Mycophenolate mofetil (Cellcept) 750 mg PO BID Tacrolimus Antiinfectives: Fluconazole Sulfamethoxazole/Trimethoprim SS (400 mg-80 mg) one tablet PO once daily Valganciclovir (Valcyte) Blood Pressure: Diltiazem CD 120 mg PO once daily Other: Magnesium gluconate - dose to be determined at discharge or 1st clinic visit Potassium phosphate - dose to be determined at discharge or 1st clinic visit Home meds to continue Aspirin 325 mg PO once daily Citalopram 40 mg PO once daily Pantoprazole 40 mg PO once daily Divalproex ER 250 mg PO once daily Multivitamin 1 tab PO once daily Patient's Medications New Prescriptions CELLCEPT 250 MG CAPSULE Take 3 capsules by mouth 2 times daily. S/P Pancreas Transplant 08/28/2013 Dx V42.83 DILTIAZEM (DILACOR XR) 120 MG 24 HR CAPSULE Take 1 capsule by mouth daily. FLUCONAZOLE (DIFLUCAN) 200 MG TABLET Take 1 tablet by mouth daily. MAGNESIUM GLUCONATE 27 MG (500 MG) TAB Take 1 tablet by mouth 3 times daily. PANTOPRAZOLE (PROTONIX) 40 MG TABLET Take 1 tablet by mouth daily. POTASSIUM PHOSPHATE, MONOBASIC, (K-PHOS) 500 MG TABLET Take 1 tablet by mouth 3 times daily. PROGRAF 1 MG CAPSULE Take 2 capsules by mouth 2 times daily. S/P Pancreas Transplant 08/28/2013 Dx V42.83 SULFAMETHOXAZOLE-TRIMETHOPRIM (BACTRIM;SEPTRA) 400-80 MG PER TABLET Take 1 tablet by mouth daily. VALGANCICLOVIR (VALCYTE) 450 MG TABLET Take 2 tablets by mouth 2 times daily. S/P Pancreas Transplant 08/28/2013 Dx V42.83 Previous Medications ACETONE, URINE, TEST (ACETONE, URINE, TEST) STRP by [facility].(Non-Drug; Combo Route) route. AMLODIPINE (NORVASC) 2.5 MG TABLET Take by mouth daily. ASPIRIN 325 MG TABLET Take by mouth daily. CALCIUM CARBONATE (CALCIUM 600 ORAL) Take 1,200 mg by mouth daily. CARVEDILOL (COREG) 3.125 MG TABLET Take by mouth 2 times daily (with meals). CITALOPRAM (CELEXA) 20 MG TABLET Take 40 mg by mouth daily. DIABETIC SUPPLIES, [place]. [facility] Fax form to [facility] medical for testing supplies 10 times per day DIVALPROEX (DEPAKOTE ER) 250 MG 24 HR TABLET Take 1 tablet by mouth daily. Call to adjust in 1 week. GLUCAGON, HUMAN RECOMBINANT, 1 MG INJECTION Inject 1 mL as directed as needed. GLUCOSAMINE HCL/CHONDRO ROGERS A (GLUCOSAMINE-CHONDROITIN ORAL) Take 3 tablets by mouth daily. HYDROXYZINE (VISTARIL) 25 MG CAPSULE Take by mouth 2 times daily as needed. INSULIN ASPART (NOVOLOG) 100 UNIT/ML VIAL INJECTION Inject 80 Units subcutaneously daily. Approximally 80 units subcutaneous by pump. LEVOTHYROXINE (SYNTHROID) 200 MCG TABLET Take 1 tablet by mouth daily. LOSARTAN-HYDROCHLOROTHIAZIDE (HYZAAR) 100-25 MG PER TABLET Take 1 tablet by mouth daily. MAGNESIUM OXIDE (MAG-OX) 400 MG TABLET Take by mouth 4 times daily. MULTIVITAMIN (THERAGRAN) TABLET Take 1 tablet by mouth daily. NAPROXEN SODIUM (ANAPROX) 550 MG TABLET Take 1 tablet by mouth 2 times daily as needed (for breakthrough headaches). OMEGA-3 FATTY ACIDS-VITAMIN E (FISH OIL) 1,000 MG CAP Take 5,000 mg by mouth daily. ONDANSETRON (ZOFRAN) 4 MG TABLET Take by mouth as needed. PANTOPRAZOLE (PROTONIX) 40 MG TABLET Take by mouth 2 times daily. PRAVASTATIN (PRAVACHOL) 40 MG TABLET Take 40 mg by mouth daily. PROMETHAZINE (PHENERGAN) [address] rectally daily as needed. SILDENAFIL (VIAGRA) 100 MG TABLET Take 1 tablet by mouth as needed for Erectile Dysfunction. 90 daysupply Dx code :250.60 TRAMADOL (ULTRAM) 50 MG TABLET Take 100 mg by mouth 2 times daily. TRIMETHOBENZAMIDE (TIGAN) 300 MG CAPSULE Take by mouth 2 times daily. VERAPAMIL (CALAN-SR) 240 MG CR TABLET Take by mouth 2 times daily. Home meds not restarted at this time: Insulin Verapamil CR 240 mg PO twice daily Trimethobenzamide 300 mg PO twice daily Sildenafil 100 mg PO as needed Magnesium oxide 400 mg PO four times daily Glucosamine Assessment/Plan: Medication education included discussions on the following: Indication (purpose and estimated duration of therapy), action, & side effects Dose, time of day, and missed doses Signs and symptoms of rejection Previous outpatient medications have been reconciled with new medications Patient was given written information about use, how to take/special instructions, and common side effects of their medications Patient verbalizes understanding of information Informed patient I am available for any medication questions. Contact information was provided to the patient. Jordyn Walsh, PharmD Laurie Alvarado, TeresaD Eriberto Melgar MD - 09/01/2013 7:53 AM EST [facility] INPATIENT FOLLOW UP PATIENT: Richard Hsu : 1965 ROOM: [address] [place] [address]- ID: 47 y.o. male admitted for pancreas transplantation. Subjective: - No fever, feels dehydrated. - Fluids discontinued, ate this AM- diet being advanced - Has passes gasses but not BMs yet - CBGs < 145 consistency MEDS: ??? tacrolimus 2 mg Oral BID ??? erythromycin 250 mg Intravenous Q12H LAMONT ??? enoxaparin 30 mg Subcutaneous Q12H LAMONT ??? citalopram 40 mg Oral Daily ??? mycophenolate 750 mg Oral BID ??? esomeprazole 40 mg Intravenous Daily ??? aspirin 325 mg Oral Daily ??? fluconazole 200 mg Intravenous Q24H ??? ganciclovir 475 mg Intravenous Q24H ??? piperacillin-tazobactam (ZOSYN) IV 4.5 g Intravenous Q6H ??? levothyroxine 200 mcg Oral QAM EXAM: Last value Range last 24 hrs Temperature Temp: 36.5 ??C (97.7 ??F) Temp: [36.5 ??C (97.7 ??F)-36.9 ??C (98.4 ??F)] Heart Rate Heart Rate: 73 Heart Rate: [72-78] Blood Pressure BP: 125/80 mmHg BP: (99-135)/(59-83) Respiratory Rate Resp: 18 Resp: [18] SpO2 SpO2: 95 % SpO2: [95 %-98 %] Art BP BP (Arterial Line): 141/78 mmHg BP (Arterial Line): -- Wt Readings from Last 3 Encounters: 09/01/13 98.7 kg (217 lb 9.5 oz) 09/01/13 98.7 kg (217 lb 9.5 oz) 08/10/13 95.255 kg (210 lb) Intake/Output Summary (Last 24 hours) at 09/01/13 0753 Last data filed at 09/01/13 0701 Gross per 24 hour Intake 4808 ml Output 4555 ml Net 253 ml Gen: Alert, looks comfortable, mildly diaphoretic Lungs: clear to auscultation Heart - RR, no m/r/g Abd - Soft. + BS, incision w/van no secretions, GERALD drain with serosanguinous fluid Ext - No LE edema. Neuro - Consolidates info well LABS: Lab Results Component Value Date WBC 3.6* 09/01/2013 RBC 3.54* 09/01/2013 HGB 10.6* 09/01/2013 HCT 30.7* 09/01/2013 MCV 86.7 09/01/2013 MCH 29.9 09/01/2013 MCHC 34.5 09/01/2013 PLATELET 123* 09/01/2013 RDWCV 12.3 09/01/2013 Lab Results Component Value Date NA 143 09/01/2013 K 3.0* 09/01/2013 CL 106 09/01/2013 CO2 27 09/01/2013 Lab Results Component Value Date CREATININE 0.78* 09/01/2013 Lab Results Component Value Date CALCIUM 8.2* 09/01/2013 Lab Results Component Value Date PHOS 2.6 09/01/2013 Lab Results Component Value Date AMYLASE 86 09/01/2013 Lab Results Component Value Date LIPASE 82* 09/01/2013 EBV, Herpes 6 and Herpes simplex type 1 positive CXR: no cardiopulmonary disease IMPRESSION/ RECOMMENDATIONS: Pancreas transplant Status - CBGs < 140, lipase increased to 82. - Patient has not kept up with fluid requirements and was explained the importance of being well hydrated to avoid thrombosis of transplant. Encouraged PO intake. Immunosuppression - Inducted with 30 mg of Alemtuzumab x 1 - MMF 750 mg BID - Tacrolimus 2 mg PO BID, trough level pending. PO4/Mg - Ok w/o supplementation Hypertension - Agree with holding Cozaar, amlodipine and verapamil Infectious prophylaxis - Fluconazole 200 mg IV daily, increases levels of CNI - Gancyclovir 475 mg IV daily, to be discharged on Valacyclovir - Bactrim DS 1 tab TIW to be started after discharge Seen and discussed w/Dr Talia Camarena MD Nephrology Fellow Pager# [phone] I examined the patient, reviewed all of the above findings and assessment of Dr. Michael Camarena and formulated the recommendations which accurately reflect mine. Leilani Keller MD - 09/01/2013 7:38 AM EST General Surgery Resident Inpatient Progress Note ID: Richard Hsu is a 47 y.o. male s/p pancreas transplant on 08/28 24hr events: ?? Diet advanced to regular ?? Glucose remains well controlled ?? 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 Passing Flatus, no stool, feeling bloated. O: Last value Range last 24hrs Temperature Temp: 36.5 ??C (97.7 ??F) Temp: [36.5 ??C (97.7 ??F)-36.8 ??C (98.2 ??F)] Heart Rate Heart Rate: 73 Heart Rate: [72-78] Blood Pressure BP: 128/80 mmHg BP: (125-135)/(71-83) Respiratory Rate Resp: 18 Resp: [18] SpO2 SpO2: 96 % SpO2: [95 %-98 %] on room air 08/31 0701 - 09/01 0700 In: 4808 [P.O.:2040; I.V.:2768] Out: 4055 [Urine:3925] , 130 drain Physical Exam: General: NAD, resting comfortably, pleasant, conversant HEENT: PERRL, anicteric sclerae CVS: RRR, no murmur Pulm: CTAB Abd: Soft, nontender, non-distended, incision with small amount of ecchymosis, no erythema or induration Skin: Warm, dry Ext: no edema, no calf tenderness, cap refill <2sec Neuro: CN 2-12 grossly intact, nonfocal,moving all four extremities spontaneously Recent Labs Basename 09/01/13 0800 08/31/13 0313 08/30/13 0635 08/30/13 0045 08/29/13 1835 08/29/13 1225 WBC 3.6* 10.0 13.4* 12.9* 14.2* -- HGB 10.6* 10.1* 11.1* 10.9* 11.7* -- HCT 30.7* 30.2* 32.4* 31.7* 33.8* -- PLATELET 123* 135* 138* 132* 150 -- PT -- -- -- -- -- -- INR -- -- -- -- -- -- PTT -- -- -- -- -- -- NA 143 142 141 141 140 -- K 3.0* 3.9 3.9 4.0 4.0 -- CL 106 106 107 107 107 -- CO2 27 27 24 25 24 -- BUN 12 20 17 18 18 -- CREATININE 0.78* 0.70* 0.69* 0.68* 0.77* -- GLUCOSE 108 121 132 139 145 -- CALCIUM 8.2* 8.1* 8.2* -- 8.2* 8.5 MAGNESIUM 0.76 0.88 -- 0.80 -- -- PHOS 2.6 3.2 -- 3.0 -- -- NEW IMAGING: ?? none A/P 47 y.o. male Pod 3 s/p pancreas tx, doing well, with excellent BG control without insulin. HDS and Hb stable. 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 - hypokalemia, replete PO ID/immuno: zosyn, change fluconazole to PO, gancyclovir, cellcept, prograf at 2/2, prograf level pending Endo: good BG control Heme: stable, on lovenox ppyx dose, follow CBC daily Patient status is inpatient due to: - post-transplant management and close nmonitoring LONNIE YEUNG MD PGY1, pager [phone] Transplant Surgery I have seen and evaluated this patient, examined the patient and all pertinent radiographic studies,and have formulated the above assessment and plan in conjuction with Dr. Yeung. Richard Wilmer Hsu is s/p Pancreas transplant on 08/28 . The patient is now POD#4. VS per flow sheet abdomen soft, non-distended wound c/d/i GERALD serosangenous Labs as above A/P Doing well after transplant. Richard Hsu is progressing per the post transplant protocol. 1. Immunosuppression reviewed and adjusted: Tacrolimus: 2 mg po BID, level pending today. May be high as he is on fluconazole and Erythromycin.We will stop Erythro today MMF: 750 mg po BID RAPA: Corticosteroids: completed Induction therapy: [X] Campath [] Thymoglobulin [] Basiliximab 2. Blood pressure management: None 3. IV hydration: Change to 1 L this AM 4. Diet: regular 5. Disposition: home in AM with PICC line for long-term hydration Leilani Keller MD - 08/31/2013 8:29 AM EST Transplant Surgery Note ID: 47 y.o. male Pod 3 s/p pancreas tx Interim: tx-ed to floor ngt out A line out Ambulated Some nausea yesterday, but none this am and passing flatus Got picc BP 124/79 Pulse 72 Temp 36.6 ??C (97.9 ??F) (Oral) Resp 18 Ht 182.9 cm (6') Wt 97.6 kg (215 lb 2.7 oz) BMI 29.18 kg/m2 SpO2 97% I/O last 3 completed shifts: In: 4243.7 [P.O.:480; I.V.:3723.7; NG/GT:40] Out: 2750 [Urine:2390; Emesis/NG output:110; Other:250] I/O this shift: In: - Out: 645 [Urine:625; Other:20] NAD, alert and oriented CTAB Regular abd softly dt, attp, cachorro with serosang drainage Ext warm Neuro grossly intact Labs reviewed CBC Lab Results Component Value Date WBC 10.0 08/31/2013 Hemoglobin 10.1* 08/31/2013 Hematocrit 30.2* 08/31/2013 Platelets 135* 08/31/2013 Electrolytes Lab Results Component Value Date Sodium 142 08/31/2013 Potassium 3.9 08/31/2013 Chloride 106 08/31/2013 CO2 27 08/31/2013 Lab Results Component Value Date BUN 20 08/31/2013 CREATININE 0.70* 08/31/2013 BG 120-140 range A/P 47 y.o. male Pod 3 s/p pancreas tx, doing well, with excellent BG control without insulin. HDS and Hb stable. Neuro: start transitioning to po pain meds Cards: stable Pulm: IS, oob GI: ADAT, erythromycin FEK: IVF at 75, continue, d/c rojo ID/immuno: zosyn, fluc, gancyclovir, cellcept, prograf at 2/2, prograf level tomorrow Endo: good BG control Heme: stable, on lovenox ppyx dose, change CBC to daily Transplant Surgery I have seen and evaluated this patient, examined the patient and all pertinent radiographic studies,and have formulated the above assessment and plan in conjuction with Dr. Perez Richard Hsu is s/p Pancreas transplant on 08/28 . The patient is now POD#3. VS per flow sheet abdomen soft, non-distended wound c/d/i GERALD serosangenous Labs as above A/P Doing well after transplant. Richard Hsu is progressing per the post transplant protocol. 1. Immunosuppression reviewed and adjusted: Tacrolimus: 2 mg po BID, check level tomorrow MMF: RAPA: Corticosteroids: completed Induction therapy: [X] Campath [] Thymoglobulin [] Basiliximab 2. Blood pressure management: BP stable 3. IV hydration: 75 cc per hour, PICC in place 4. Diet: Clears, advance to requlat 5. Disposition: remain inpatient to manage resolving ileus. Eriberto Melgar MD - 08/30/2013 2:15 PM EST [facility] NEPHROLOGY INPATIENT FOLLOW UP PATIENT: Richard Hsu : 1965 RO[facility] ID: 47 y.o. male admitted for pancreas transplantation. Subjective: - Feels better - Tremors did not recur - NG tube taken out today - Has not passed gasses yet - Pain controlled w/STILE RIPSAW OPERATOR MEDS: ??? [COMPLETED] ondansetron 4 mg Intravenous Once ??? tacrolimus 2 mg Oral BID ??? erythromycin 250 mg Intravenous Q12H LAMONT ??? enoxaparin 30 mg Subcutaneous Q12H LAMONT ??? citalopram 40 mg Oral Daily ??? mycophenolate 750 mg Oral BID ??? [COMPLETED] methylPREDNISolone 125 mg Intravenous Daily ??? esomeprazole 40 mg Oral Daily Or ??? esomeprazole 40 mg Intravenous Daily ??? aspirin 325 mg Oral Daily ??? fluconazole 200 mg Intravenous Q24H ??? ganciclovir 475 mg Intravenous Q24H ??? piperacillin-tazobactam (ZOSYN) IV 4.5 g Intravenous Q6H ??? levothyroxine 200 mcg Oral QAM EXAM: Last value Range last 24 hrs Temperature Temp: 36.9 ??C (98.4 ??F) Temp: [36.7 ??C (98.1 ??F)-37 ??C (98.6 ??F)] Heart Rate Heart Rate: 81 Heart Rate: [76-93] Blood Pressure BP: 153/82 mmHg BP: (134-153)/(64-82) Respiratory Rate Resp: 18 Resp: [9-18] SpO2 SpO2: 97 % SpO2: [94 %-97 %] Art BP BP (Arterial Line): 141/78 mmHg BP (Arterial Line): (126-141)/(65-78) Wt Readings from Last 3 Encounters: 08/30/13 97.9 kg (215 lb 13.3 oz) 08/30/13 97.9 kg (215 lb 13.3 oz) 08/10/13 95.255 kg (210 lb) Intake/Output Summary (Last 24 hours) at 08/30/13 1415 Last data filed at 08/30/13 1200 Gross per 24 hour Intake 3616.88 ml Output 2085 ml Net 1531.88 ml Gen: Alert, looks comfortable, mildly diaphoretic Lungs: clear to auscultation Heart - RR, no m/r/g Abd - Soft. + BS, incision w/van no secretions, GERALD drain with serosanguinous fluid Ext - No LE edema. Neuro - Consolidates info well LABS: Lab Results Component Value Date WBC 13.4* 08/30/2013 RBC 3.60* 08/30/2013 HGB 11.1* 08/30/2013 HCT 32.4* 08/30/2013 MCV 90.0 08/30/2013 MCH 30.8 08/30/2013 MCHC 34.3 08/30/2013 PLATELET 138* 08/30/2013 RDWCV 12.8 08/30/2013 Lab Results Component Value Date Sodium 141 08/30/2013 Potassium 3.9 08/30/2013 Chloride 107 08/30/2013 CO2 24 08/30/2013 BUN 17 08/30/2013 Creatinine 0.69* 08/30/2013 Glucose Lvl 132 08/30/2013 Lab Results Component Value Date CALCIUM 8.2* 08/30/2013 Lab Results Component Value Date PHOS 3.0 08/30/2013 EBV, Herpes 6 and Herpes simplex type 1 positive CXR: no cardiopulmonary disease IMPRESSION/ RECOMMENDATIONS: Pancreas transplant Status - POD #2- CBGs <140s Immunosuppression - Inducted with 30 mg of Alemtuzumab x 1 - MMF 750 mg BID - Tacrolimus 2 mg PO BID, would trough level (1 hr before AM dose) tomorrow - Steroid taper, received 125 mg IV today PO4/Mg Ok w/o supplementation Hypertension Agree with holding Cozaar, amlodipine and verapamil Infectious prophylaxis Fluconazole 200 mg IV daily, increases levels of CNI Gancyclovir 475 mg IV daily, to be discharged on Valacyclovir Bactrim DS 1 tab TIW to be started after discharge Seen and discussed w/Dr Talia Camarena MD Nephrology Fellow Pager# [phone] I examined the patient, reviewed all of the above findings and assessment of Dr. Michael Camarena and formulated the recommendations which accurately reflect mine. Leilani Sesay I - 08/30/2013 2:05 PM EST Patient discharge teaching continued today in stepdown unit. Post transplant education booklet was reviewed and so was the primary medication card. Received the prior-authorization for the patient's Prograf and Cellcept after it was first rejected today. still needs to pick-up first set of medications. Patient has good grasp of what he needs to know for discharge including the fact that he will have VNA for IVF via a PICC line, the GERALD drain care, I/O, BP, Pulse and weight daily dairy. Mary Quesada RN - 08/30/2013 1:55 PM EST Care Management/ CRC pager# [phone]/ Progress note and Discharge planning S: Getting a referral in to [facility] and [facility] would be terrific. I am a nurse, but I am also the patient's ! ( Tiffani speaking) O: Met with patient and patient's in conjunction with Leilani Smiley RN Transplant Coordinatorthis afternoon. Other family members present. Referral to [facility] as requested. Information faxed via discharge central. Referral to [facility] as requested. Discussion with MIGUELITO Ricardo. Information faxed via discharge central. Care Management note for MD Discharge Summary (with VNA and Infusion Vendor information) completed and pended by content writer. Patient is POD# 2 pancreas transplant. Blood sugar range 111-145 since midnight. NGT D/C this morning. GERALD drain x1 to bulb suction (output of 300ml/24hr). Solumedrol 125mg IV today. Patient OOB with assistance. Patient to have PICC line placed this afternoon. [facility] A: Patient progressing post-op. Supportive and family. P: I will continue in CRC role, following patient's in-hospital course, offering support to patient/family, coordinating discharge planning effort. At time of patient's discharge, senior gamemaster to call report to VNA and MD Discharge Summary to be faxed. Tracee Hernandez RD - 08/30/2013 9:03 AM EST Nutrition Services ID: 47 y.o. male Pod 2 s/p pancreas tx Patient has been NPO and/or on clear liquids for 4 days. If diet can not be advanced within 48 hours, please consider alternative means of nutrition support. Leilani Calzada MD - 08/30/2013 7:23 AM EST Transplant Surgery Note ID: 47 y.o. male Pod 2 s/p pancreas tx Interim: No acute events Pain better controlled OOB, walking Some nausea BP 142/73 Pulse 82 Temp 36.8 ??C (98.2 ??F) (Oral) Resp 11 Ht 182.9 cm (6') Wt 97.9 kg (215 lb 13.3 oz) BMI 29.27 kg/m2 SpO2 97% I/O last 3 completed shifts: In: 6541.7 [P.O.:340; I.V.:5342.7; NG/GT:100; IV Piggyback:759] Out: 4355 [Urine:2850; Emesis/NG output:885; Other:620] NAD, alert and oriented CTAB Regular abd softly dt, attp, cachorro with serosang drainage, thinner today Ext warm Neuro grossly intact Labs reviewed CBC Lab Results Component Value Date WBC 13.4* 08/30/2013 Hemoglobin 11.1* 08/30/2013 Hematocrit 32.4* 08/30/2013 Platelets 138* 08/30/2013 Electrolytes Lab Results Component Value Date Sodium 141 08/30/2013 Potassium 3.9 08/30/2013 Chloride 107 08/30/2013 CO2 24 08/30/2013 Lab Results Component Value Date BUN 17 08/30/2013 CREATININE 0.69* 08/30/2013 BG 120-140 range A/P 47 y.o. male Pod 2 s/p pancreas tx, doing well, with excellent BG control without insulin. HDS and Hb stable. Neuro: dil jack frame tender Cards: stable Pulm: IS, oob GI: sips and chips, consider ngt off suction today, zofran, erythromycin FEK: cont IVF at LR for now ID/immuno: zosyn, fluc, gancyclovir, cellcept, start prograf at 2/2 Endo: good BG control Heme: stable, on lovenox ppyx dose, change CBC to q12 Transplant Surgery I have seen and evaluated this patient, examined the patient and all pertinent radiographic studies,and have formulated the above assessment and plan in conjuction with Dr. Perez. Richard Wilmer Hsu is s/p Pancreas transplant on 08/28 . The patient is now POD#2. VS per flow sheet abdomen soft, non-distended wound c/d/i GERALD serosangenous Labs as above A/P Doing well after transplant. Richard Hsu is progressing per the post transplant protocol. 1. Immunosuppression reviewed and adjusted: Tacrolimus: 2 mg po BID. Check level MMF: 750 mg po BID RAPA: Corticosteroids: 125 mg solumedorl Induction therapy: [X] Campath [] Thymoglobulin [] Basiliximab 2. Blood pressure management: Off all agents. BP stable. Will start Cardizem soon 3. IV hydration: decreased to 75 cc per hour 4. Diet: NG tube removed, start clears 5. Disposition: to floor Yolanda Dominguez RN - 08/30/2013 5:39 AM EST Nursing Progress Note Shift Events: 1999 - Report received. Pt AAOx4 and in the chair. NGT clamped due to recent administration of medications. Pt c/o 5/10 pain. According to Pt a comfortable pain level is between 4-5. Pt using STILE RIPSAW OPERATOR approprietly. Pt at the bedside. VS stable will continue to monitor. Pt denies N/V and SOB and this time. 2100 - Pt out of chair and ambulated about 75 ft. Pt tolerated activity well with c/o increased pain. Pt denies SOB. Pt back to bed at this time. 2300 - NGT flushed with 20cc of water and hooked back to suction at this time. Pt denies N/V, but will continue to monitor. 0230 - Pt c/o nausea. 4mg Zofran given at this time with little effect. NGT flushed again with 20 ccof water. Will continue to monitor NGT output and nausea. 0400 - NGT output increased from 0- 80 cc. 0500 - Pt still c/o some nausea. paged and notified. A one time order of 4mg of Zofran was ordered and given at this time. 0600 - Pt resting comfortably at this time. NGT clamped due to recent medication administration. VS stable will continue to monitor. Vital Signs: Last value Range last 12 hrs Temperature Temp: 36.8 ??C (98.2 ??F) Temp: [36.8 ??C (98.2 ??F)-36.9 ??C (98.4 ??F)] Heart Rate Heart Rate: 85 Heart Rate: [76-93] Blood Pressure BP: 134/76 mmHg BP: (134-142)/(64-76) Respiratory Rate Resp: 9 Resp: [9-17] SpO2 SpO2: 96 % SpO2: [95 %-97 %] Plan: Pain control Recommendations: Means of nutrition PO pain medication D/C rojo, NGT, A-line and CVP monitoring. Transfer to floor Leilani Sesay I - 08/29/2013 8:53 PM EST Patient discharge teaching was started Today in stepdown unit. Post transplant education booklet wasgiven to patient as well as instructions that discharge medications have been ordered at the [facility] outpatient pharmacy and a family member will need to pick medications up prior to discharge so they canbe review. Part II of teaching will be to ensure patient has read the hand material, review what medication card looks like and how to understand it, and to send family member to collect medications from pharmacy. Leilani Calzada MD - 08/29/2013 5:37 PM EST Transplant Surgery Note ID: 47 y.o. male Pod 1 s/p pancreas tx Interim: No acute events Had some pain, but not using max jack frame tender Hb stable BP 139/79 Pulse 85 Temp 37 ??C (98.6 ??F) (Oral) Resp 15 Ht 182.9 cm (6') Wt 98.4 kg (216 lb 14.9 oz) BMI 29.42 kg/m2 SpO2 96% I/O last 3 completed shifts: In: 8062.2 [P.O.:340; I.V.:7532; NG/GT:20; IV Piggyback:170.2] Out: 5165 [Urine:3430; Emesis/NG output:880; Other:855] I/O this shift: In: 1862.8 [I.V.:1063.8; NG/GT:40; IV Piggyback:759] Out: 1060 [Urine:650; Emesis/NG output:250; Other:160] NAD, alert and oriented CTAB Regular abd softly dt, attp, cachorro with serosang drainage, medium thick Ext warm Neuro grossly intact Labs reviewed Hb stable in 11-12 range INR was 1.2 Bmp wnl BG 80s-160s A/P 47 y.o. male Pod 1 s/p pancreas tx, doing well, with excellent BG control without insulin. HDS and Hb stable. Neuro: jack frame tender Cards: stable Pulm: IS GI: sips and chips, ngt to suction, erythromycin FEK: 125/hr LR, bmp repeat tomorrow ID/immuno: zosyn, fluc, gancyclovir, cellcept, start prograf at 10/02 Endo: good BG control Heme: stable, start lovenox this afternoon with pphyx dose, cbc q6hrs Dispo: Iscu Transplant Surgery I have seen and evaluated this patient, examined the patient and all pertinent radiographic studies,and have formulated the above assessment and plan in conjuction with Dr. Perez. Richard Hsu is s/p Pancreas transplant on 08/28 . The patient is now POD#1. VS per flow sheet abdomen soft, non-distended wound c/d/i GERALD serosangenous Labs as above A/P Doing well after transplant. Richard Hsu is progressing per the post transplant protocol. 1. Immunosuppression reviewed and adjusted: Tacrolimus: 2 mg po BID MMF: 750 mg po BID RAPA: Corticosteroids: 250 mg IV solumedrol Induction therapy: [X] Campath [] Thymoglobulin [] Basiliximab 2. Blood pressure management: Off all agents 3. IV hydration: 125 cc per hour 4. Diet: NPO 5. Disposition: remain in ISCU Mary Lynn RN - 08/29/2013 4:19 PM EST Care Management/ CRC Pager# [phone]/ Initial assessment O: Patient sitting in recliner chair, napping. Medicare Interviewer did not awaken patient. Notes reviewed. Patient lives with his Tiffani in [facility]. Patient has [facility] and currently has CBA assecondary (but as of 08/31/13, CBA plan terminates). Call to Judi Manzano of Transplant Clinic to confirm. No Advance Directives on file here at [facility]. Patient is POD#1 pancreas transplant. At this time patient is in ISCU room 44. Patient has NGT to LCWS. IVF at 125/hr. GERALD drain x1 to bulb suction (output of 855ml/24hr). Rojo to gravity. Zosyn IV q6hr, Fluconazole IV q24hr, Erythromycin IV q12hr, Gancyclovir IV q24hr. Solumedrol 250mg IV today.Cellcept po BID. Prograf 2mg po BID. Nexium po/IV qday. Tylenol po q4hr prn. Hydromorphone STILE RIPSAW OPERATOR. Zofran IV q8hr prn (dose today at 0750). OOB with assistance. 94% on RA. Blood glucose range 99-173 from Mn to 1515 today. A/P: I will continue in CRC role, following patient's in-hospital course, offering support to patient/family, coordinating discharge planning effort. Yolanda Dominguez RN - 08/28/2013 9:23 PM EST Nursing Progress Note Shift Events: 1999 - Report received. Pt AAOx4 in bed. NGT clamped due to PO meds given, C/o 05/10 main. Pt encouraged to push STILE RIPSAW OPERATOR button for any pain. CVP line flushed and zeroed. Family at bedside. VS stable at this time will continue to monitor. 2120 - A-line pressure reading 114/55, cuff pressure ready 119/58. MD paged and made aware at this time. As per MD will monitor pressure via the cuff. No other interventions done at this time. Will continue to monitor BP 99 - Pt c/o of nausea. NGT flushed and 5 mg of Compazine given at this time. 129 - Pt called me into his room stating it feels like I am chocking HOB raised and sips of waterwhere given. HR 114 A-line pressure reading 152/82, cuff pressure reading 169/88. Pt c/o of slight SOB. Sp02 remained 95% on 2L NC. Pt became very diaphoretic, and c/o of being cold and hot. Temp was 37.2 Axillary. A cool cloth was applied to his head. Pt was experiencing involuntary shaking of his whole body. Pt was then encouraged to take slow deep breaths. Pt denies chest pain. Pt stated this sameepisode happened during the day. MD was paged and notified at this time. No further action was taken. When episode was over, SBP dropped to 120's and his HR decreased to 90's. Will continue to monitor. 0145 - Pt c/o sharp stabbing pain in L shoulder. Ice was applied will continue to monitor for pain. 0600 - Pt resting comfortably at this time. NGT clamped. VS stable will continue to monitor Vital Signs: Last value Range last 12 hrs Temperature Temp: 37 ??C (98.6 ??F) Temp: [36.7 ??C (98.1 ??F)-37 ??C (98.6 ??F)] Heart Rate Heart Rate: 87 Heart Rate: [77-103] Blood Pressure BP: 128/62 mmHg BP: (123-140)/(60-83) Respiratory Rate Resp: 11 Resp: [9-16] SpO2 SpO2: 94 % SpO2: [94 %-96 %] Plan: Pain control Encourage deep breathing coughing and using IS OOB to chair Anderson Zee MD - 08/28/2013 4:22 PM EST Surgery Progress Note S: 1. Difficulty breathing with OK O2 sat, resolved 2. O: ??? [COMPLETED] alemtuzumab (CAMPATH) infusion 30 mg Intravenous Reagent Tender to OR ### ??? [COMPLETED] piperacillin-tazobactam 4.5 g Intravenous Reagent Tender to OR ### ??? [COMPLETED] ganciclovir 425 mg Intravenous Reagent Tender to OR ### ??? citalopram 40 mg Oral Daily ### ??? mycophenolate 750 mg Oral BID ### ??? methylPREDNISolone 250 mg Intravenous Daily ### Followed by ??? methylPREDNISolone 125 mg Intravenous Daily ### ??? esomeprazole 40 mg Oral Daily ### Or ??? esomeprazole 40 mg Intravenous Daily ### ??? aspirin 325 mg Oral Daily ### ??? fluconazole 200 mg Intravenous Q24H ### ??? ganciclovir 475 mg Intravenous Q24H ### ??? piperacillin-tazobactam (ZOSYN) IV 4.5 g Intravenous Q6H ### ??? potassium chloride 20 mEq Intravenous Q2H ### ??? [COMPLETED] magnesium sulfate 2 g Intravenous Once ### ??? [DISCONTINUED] piperacillin-tazobactam 4.5 g Intravenous Q6H ### ??? [DISCONTINUED] STILE RIPSAW OPERATOR du ### ??? [COMPLETED] methylPREDNISolone 375 mg Intravenous Reagent Tender to OR ### ??? [COMPLETED] mycophenolate 1,000 mg Oral Reagent Tender to OR ### ??? [COMPLETED] diphenhydrAMINE 50 mg Intravenous Reagent Tender to OR ### ??? [COMPLETED] neomycin 1,000 mg Oral Q2H ### ??? [COMPLETED] acetaminophen 650 mg Oral Reagent Tender to OR ### ??? [COMPLETED] fluconazole 200 mg Intravenous Once ### ??? levothyroxine 200 mcg Oral QAM ### ??? [DISCONTINUED] sodium chloride 0.9 % 5 mL Intravenous Q12H ### ??? [DISCONTINUED] alemtuzumab (CAMPATH) infusion 30 mg Intravenous Reagent Tender to OR ### ??? [DISCONTINUED] piperacillin-tazobactam 4.5 g Intravenous Once ### ??? [DISCONTINUED] ganciclovir 485 mg Intravenous Reagent Tender to OR ### ??? [DISCONTINUED] insulin aspart 3-12 Units Subcutaneous Q4H LAMONT ### ??? HYDROmorphone (DILAUDID) 1 mg/mL STILE RIPSAW OPERATOR 30 mL Intravenous STILE RIPSAW OPERATOR Only ### ??? STILE RIPSAW OPERATOR du Intravenous Continuous ### ??? lactated ringers infusion 125 mL/hr Intravenous Continuous ### diphenhydrAMINE, diphenhydrAMINE, acetaminophen, diphenhydrAMINE, diphenhydrAMINE, metoprolol, diphenhydrAMINE, prochlorperazine, ondansetron, nalOXone, DILTiazem, phenol 1.4%, [DISCONTINUED] fentaNYL (PF), [DISCONTINUED] HYDROmorphone, [DISCONTINUED] nalOXone, [DISCONTINUED] ondansetron, [DISCONTINUED] acetaminophen, [DISCONTINUED] dextrose 50%, [DISCONTINUED] glucagon (human recombinant) Last value Range last 24 hrs Temperature Temp: 36.6 ??C (97.9 ??F) Temp: [36.4 ??C (97.5 ??F)-37.5 ??C (99.5 ??F)] Heart Rate Heart Rate: 104 Heart Rate: [53-112] Blood Pressure BP: 130/66 mmHg BP: (117-164)/(54-92) Respiratory Rate Resp: 16 Resp: [10-20] SpO2 SpO2: 97 % SpO2: [91 %-100 %] I/Os: Intake/Output Summary (Last 24 hours) at 08/28/13 1622 Last data filed at 08/28/13 1600 Gross per 24 hour Intake 5597.2 ml Output 2575 ml Net 3022.2 ml I/O last 1 completed shift: In: 1000 [I.V.:1000] Out: 200 [Urine:200] Physical Exam: Neuro: NAD, AOx3, sensation intact to light touch in b/l UE/LE/trunk HEENT: L neck TLC CV: RRR Resp: Adequate effort Abd: Soft, aTTP, ND Midline dressing drp MSK: 5/5 b/l UE/LE strength PV: Warm, well-perfused Labs: Recent Labs Basename 08/28/13 1140 08/28/13 0134 WBC 7.9 6.1 HGB 12.0* 12.5* HCT 35.1* 36.4* PLATELET 175 222 Recent Labs Basename 08/28/13 1140 08/28/13 0134 NA 141 137 K 3.4* 3.4* CL 106 98 CO2 26 27 BUN 10 10 CREATININE 0.84 0.97 Recent Labs Basename 08/28/13 1140 08/28/13 0134 CALCIUM 8.7 9.2 Recent Labs Basename 08/28/13 1140 08/28/13 0134 AST 29 17 Recent Labs Basename 08/28/13 1140 08/28/13 0134 INR 1.2* 1.0 Microbiology none Radiology No results found. A/P: Richard Hsu is a 47 y.o. male Day of Surgery s/p pancreas transplant for diabetes associated with chronic pancreatitis. Neuro: Pain well-controlled CV: hemodynamically stable Pulm: pulmonary toilet with IS GI: 1. Pancreatic transplant for chronic pancreatitis - Local wound care, continue to follow patient closely. FEN: 1. Hypokalemia - repleted Endo 1. Type 2 diabetes - Euglycemic on current regimen ID: afebrile, no issues Heme: 1. Anemia - acute blood loss - No indication for transfusion at this time. Serial H/H : Rojo w/ adequate UOP MSK: CAS PV: CAS Disp: ANDERSON ZEE MD 08/28/2013 4:22 PM Tosha Macdonald RN - 08/28/2013 2:10 PM EST Nursing Progress Note Shift Events: 1300 - Pt arrived to ISCU, report received from MIGUELITO Beltrán. AxOx4, KIMMY. VSS, BP 125/63, CVP 2. Midline with some shadowing, marked. GERALD drainage sanguineous. Pain 8/10, using STILE RIPSAW OPERATOR appropriately. Givenice chips. Will continue to monitor. 1430 - Temp up from 36.4 to 37.5, MD Zee notified. Also per MD Zee, will give scheduled nexium despite allergy (severe diarrhea). 1530 - Given oral meds, nexium. Prior to administration of nexium, following administration of pills, pt states I feel like I'm choking. Sating 97% on 2L NC. Breath sounds clear, diminished. SBP 170s, correlating with peripheral cuff. HR 110s-120s. Diaphoretic. NG tube clamped for oral meds. MD Zee notified, no intervention at this time. Cool cloth applied to forehead, closely monitoring. IS teaching begun, encouraged to take big deep slow breaths. Will continue to closely monitor. 1550 - VSS, episode resolved. 1700 - Episode of cramping pain, similar to episode described at 1530. Tachycardic, SBP 170s, diaphoretic. States I think the pain in my belly is making it hard to breathe. Sating 97% on 2L NC. NGT flushed, return 250mL green, bilous. VS stablizied within 5 min. MD Zee made aware. 1830 - SBP 115-120, MD Zee made aware, no intervention at this time. Pain 5/10. Will continue to monitor 1900 - Report given to MIGUELITO Guerrero Michelle Alva RN - 08/28/2013 11:07 AM EST Pt arrived from OR to PACU at 1051, VSS. Pt c/o pain in abdomen, rates it 10/10. Fentanyl and dilaudid given. Dressing CDI, FS 136. Will continue to try to manage pain. 1120- Chest Xray done. 1205- STILE RIPSAW OPERATOR teaching performed with return demonstration showing understanding. Now rates pain 6/10. VSS. Daughter and at bedside to see pt. 1230- Dr. Yeung notified of low magnesium and potassium. Pt meets PACU discharge criteria. Report given to IMGUELITO Anton in ISCU. Rachel Herrera RN - 08/28/2013 6:24 AM EST To the OR via bed. Family with pt. Transported by [facility]. Pre op meds admin per Dr. Keller: tyle, benadryl, methylpred. And cellcept. Rachel Herrera RN - 08/27/2013 11:00 PM EST Received as direct admit from home. Pt ambulated to room from ED area--gait steady. Alert & oriented x4. Accompanied by S/O and 2 dtrs. Pt's parents arrived later. Denies discomfort. Greeted and oriented to room, bed and call nicholson. Dr. Herbert in to see pt. Med plan & time of administration reviewed w/MD. Pt and family educated re: plan for remainder of shift. Ekg and cxr done. Labs drawn andIV access placed. documented in this encounter H&P Notes Leilani Keller MD - 08/27/2013 10:07 PM EST Transplant Surgery Pre-Operative H&P Planned Procedure: donor pancreas transplant HPI: Mr. Hsu is a 47 y.o. Male with Type I diabetes who has been followed by the Transplant service as a candidate for a potential pancreas transplant. He continues having recurrent hypoglycemia episodes, as many as 1-2 per week. Patient is under Dr. Coles's care for diabetes management. He is currently on insulin pump. Today, a potential donor was identified and he now presents as a direct admission for his procedure tomorrow morning. He denies any recent change in medical history, new allergies, new medications, new infections, or blood transfusions. He has been NPO since 5 pm. Past Medical History Diagnosis Date ??? Severe [...] ill-defined conditions 3 years ago Tardive dyskinesia PSHx: Past Surgical History Procedure Date ??? Created by interface [email or web address] Procedure Date: 07/18/2009 ??? Created by interface Entered not Verified Procedure Date: 10/24/2010 ??? Upper gi endoscopy, exam 12/31/2011 UPPER GI ENDOSCOPY performed by CLAYTON BHAKTA at [facility] ??? Upper gi endoscopy, biopsy 12/31/2011 UPPER GASTROINTESTINAL ENDOSCOPY,WITH BIOPSY SINGLE OR MULTIPLE performed by CLAYTON BHAKTA at [facility] ??? Shoulder surgery ??? Carpal tunnel release ??? Appendectomy ??? Musculoskeletal surgery unlisted 10 years carpel tunnel ??? 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 Current Outpatient Prescriptions on File Prior to Encounter Medication Sig Dispense Refill ??? citalopram (CELEXA) 20 mg tablet Take 40 mg by mouth daily. ??? naproxen sodium (ANAPROX) 550 mg tablet Take 1 tablet by mouth 2 times daily as needed (for breakthrough headaches). 60 tablet 5 ??? verapamil (CALAN-SR) 240 mg CR tablet Take by mouth 2 times daily. ??? carvedilol (COREG) 3.125 mg tablet Take by mouth 2 times daily (with meals). ??? pravastatin (PRAVACHOL) 40 mg tablet Take 40 mg by mouth daily. ??? traMADol (ULTRAM) 50 mg tablet Take 100 mg by mouth 2 times daily. ??? Newton-3 Fatty Acids-Vitamin E (FISH OIL) 1,000 mg Cap Take 5,000 mg by mouth daily. ??? Acetone, Urine, Test (ACETONE, URINE, TEST) Strp by Misc.(Non-Drug; Combo Route) route. ??? hydrOXYzine (VISTARIL) 25 mg capsule Take by mouth 2 times daily as needed. ??? CALCIUM CARBONATE (CALCIUM 600 ORAL) Take 1,200 mg by mouth daily. ??? GLUCOSAMINE HCL/CHONDRO ROGERS A (GLUCOSAMINE-CHONDROITIN ORAL) Take 3 tablets by mouth daily. ??? multivitamin (THERAGRAN) tablet Take 1 tablet by mouth daily. ??? aspirin 325 mg tablet Take by mouth daily. Allergies: Nexium; Prilosec; Reglan; and Simvastatin Social Hx: History Social History ??? Marital Status: Spouse Name: N/A Number of Children: N/A ??? Years of Education: N/A Social History Main Topics ??? Smoking status: Never Smoker ??? Smokeless tobacco: Never Used ??? Alcohol Use: No Comment: history of abuse, stopped 1996 ??? Drug Use: No ??? Sexually Active: Yes Comment: deferred Other Topics Concern ??? Exercise: Patient Reported Yes yard work, push ups situps ??? 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 Alcohol Abuse Father ??? Coronary Artery Disease Maternal Grandmother ??? Diabetes Maternal Grandmother ??? Heart Disease Maternal Grandmother ??? High Blood Pressure Mother ??? High Blood Pressure Brother ??? Stroke Maternal Grandfather ROS: As per HPI. Remainder of ROS is otherwise negative. Physical Exam: General: AOx3, pleasant HEENT: NCAT Neck: Supple Cardiac: RRR, S1, S2 Lungs: CTABIL Abd: Soft, NT/ND, no masses, insulin pump LLQ, surrounding skin clean, no erythema Ext: wwp Neuro: grossly intact Laboratory: Pending Studies: None Assessment/Plan: Mr. Hsu is a 47 year-old male with Type I diabetes who has been deemed an excellent candidate for transplant. A pancreas match is now available and he presents now for preadmission in preparation for his transplant tomorrow morning at 5 am. -Admit to [facility], floor status, transplant pod -EKG, CXR now for pre-operative workup -Holding home medications except for synthroid -Continue home insulin pump at current rate, POC glc checks q4h -Neomycin 1,000 mg q2h x2 doses -Abx owner oral surgeon to OR: Zosyn 4.5 gram, ganciclovir 487.5 mg, fluconazole 200 mg IV -Antirejection medications owner oral surgeon to OR: alemtuzumab 30 mg, methylprenisolone 375 mg, cellcept 1,000 mg po -Fluids: Hep lock -Diet: NPO -Labs: CBC, BMP, T&S, mag, phos, coags, HIV screen, hep C antibody, varicella antibody -Floor status, full code Conor Herbert M.D. PGY-2 Pager [phone] I have seen and examined the patient, providing du components as outlined below. I have reviewed the resident???s above note; my evaluation of the patient is below: No medical or surgical contraindications to transplantation. No current illness. VS as above Abdomen soft Pulses 2+ bilaterally A/P proceed with pancreas transplant. 1. I explained that the donor was being considered to be an NEOB increased risk donor due to hemodilution. I had a long discussion with this patient and family regarding the conduct of pancreas transplantation including the operative procedure and the sasha- operative risks including bleeding, thrombosis, infection, rejection, duodenal leak, stroke, heart attack and . The patient and family understand these risks and wish to proceed with transplantation. I have answered all their questions. documented in this encounter Procedure Notes Provider, Scanning - 09/03/2013 9:07 AM ESTAssociated Order(s): SCAN DOC: LAB Provider, Scanning - 09/03/2013 9:07 AM ESTAssociated Order(s): SCAN DOC: STILE RIPSAW OPERATOR Anibal Lucero RN - 08/30/2013 3:16 PM EST PICC/Midline Insertion Procedure Note Indications: Access and Medication Administration This insertion was not to replace a malfunctioning catheter. This insertion was not due to a suspected line-associated infection. Location of Procedure: X-Ray Room 11 Risks and Benefits: The risks and benefits of this procedure were reviewed and informed consent was obtained obtained. Time Out: Prior to the start of the procedure, the patient's identity, intended procedure, site/side, correct patient positioning and presence of the site chantelle was confirmed as applicable. The medical history and chart were reviewed to rule out potential contraindications to the planned procedure. Hand Hygiene: The floor molder did perform hand hygiene prior to line insertion. Catheter type: PICC Lot number: [id number] Procedure Technique: Skin was prepped with chlorhexidine. Skin preparation agent was completely dry at the time of first skin puncture. The following barrier precaution methods were used:large sterile drape, maske/eye shield, large sterile gown, sterile gloves and cap. 3 ml of 1% Lidocaine was used for skin wheal. Ultrasound was used for guidance. Radiographic contrast agent was not injected for vein identification. Procedure Details: Order received for catheter placement. A 5 Fr. double lumen Bard Power catheter was placed into the right basilic vein over a 0.018 inch guidewire using modified seldinger technique and fluoroscopy. Final catheter length (with trimming):39 cm Internal: 39 cm External: 0 cm Tip in SVC per DR. LEWIS Arm circumference was 35 cm at 0 cm above the insertion site. The line was not placed over a guidewire. Post Procedure: Diagnosis: S/P PANCREATIC TRANSPLANT Blood return noted on aspiration of line after placement confirmed. 5 mls of normal saline infused free flowing to gravity via PICC after insertion. Sterile dressing applied: Tegaderm and Biopatch. Findings: The patient did tolerate the procedure well. No Complications. Procedure Comments: ANIBAL LUCERO RN 08/30/2013 documented in this encounter Miscellaneous Notes Miscellaneous - Provider, Scanning - 09/03/2013 9:07 AM EST Miscellaneous - Provider, Scanning - 09/03/2013 9:07 AM EST Miscellaneous - Provider, Scanning - 09/03/2013 9:07 AM EST Discharge Summary - Eriberto Melgar MD - 09/02/2013 12:03 PM EST Inpatient - Discharge Summary Patient Name: Richard Hsu Patient Age: 47 y.o. Birthdate: 1965 Admit date: 08/27/2013 Discharge date and time: 09/02/2013 Attending Physician: Leilani Keller MD Primary Diagnosis: Brittle Diabetes Mellitus Secondary Diagnosis: Active Hospital Problems Diagnosis ??? Pancreatitis ??? Immunosuppression Resolved Hospital Problems Diagnosis Date Resolved No resolved problems to display. Active Non-Hospital Problems Diagnosis ??? Diabetes mellitus Priority: High ??? Gastroparesis due to DM Priority: High ??? Stroke-like symptoms ??? Hypertension ??? Edema ??? Migraine ??? LBP radiating to right leg HPI: Richard Hsu is a 47 y.o. man with a history of brittle type 1 diabetes followed by the transplant clinic on the waiting list for a pancreatic transplant. A suitably matched organ became available and he was admitted for surgery. Operations/Major Procedures: Operations: 08/28/2013 Surgeon(s) and Role: * Leilani Keller MD - Primary * Nestor Perez MD - Resident-Surgeon Jeyson: Procedure(s): @PANCREATIC TRANSPLANT @PREPARATION CADAVERIC PANCREAS, STANDARD Hospital Course: Richard Hsu was taken to [...] discharge to home on post-operative day 5. Pending Lab Data at Discharge: None Condition at Discharge: Stable Important Studies and Lab Data: Labs: Recent Results (from the past 24 hour(s)) POCT GLUCOSE Component Value Range POC Glucose 106 60 - 199 mg/dL POCT GLUCOSE Component Value Range POC Glucose 96 60 - 199 mg/dL POCT GLUCOSE Component Value Range POC Glucose 98 60 - 199 mg/dL POCT GLUCOSE Component Value Range POC Glucose 87 60 - 199 mg/dL MAGNESIUM Component Value Range Magnesium 0.68 (*) 0.69 - 1.07 mmol/L AMYLASE Component Value Range Amylase 70 28 - 100 unit/L LIPASE Component Value Range Lipase 64 (*) 0 - 60 unit/L PHOSPHORUS Component Value Range Phosphorus 3.7 2.5 - 4.5 mg/dL BASIC METABOLIC PANEL (NON-FASTING) Component Value Range Glucose Lvl 85 60 - 199 mg/dL BUN 8 (*) 10 - 20 mg/dL Creatinine 0.84 0.80 - 1.50 mg/dL Sodium 140 135 - 145 mmol/L Potassium 3.1 (*) 3.5 - 5.0 mmol/L Chloride 105 98 - 107 mmol/L CO2 27 22 - 31 mmol/L Anion Gap 8 5 - 15 mmol/L Calcium 8.3 (*) 8.5 - 10.5 mg/dL Estimated GFR >60 >=60 CBC (WITH DIFF) Component Value Range WBC 1.8 (*) 4.0 - 10.0 x10(3)/mcL RBC 3.23 (*) 4.63 - 6.08 x10(6)/mcL Hemoglobin 9.7 (*) 13.7 - 17.5 gm/dL Hematocrit 28.0 (*) 40.0 - 51.0 % MCV 86.7 79.0 - 92.0 fL MCH 30.0 25.6 - 32.2 pg MCHC 34.6 32.0 - 36.5 gm/dL Platelets 121 (*) 145 - 370 x10(3)/mcL RDWSD 39.3 35.0 - 46.0 fL RDWCV 12.4 10.9 - 14.4 % MPV 10.3 9.0 - 12.0 fL DIFFERENTIAL, MANUAL Component Value Range Neutrophil % 88 (*) 34 - 71 % Band % 1 0 - 12 % Lymphocyte % 1 (*) 19 - 53 % Monocyte % 4 4 - 13 % Eosinophil % 2 0 - 7 % Basophil % 2 0 - 2 % Metamyelo % 1 (*) 0 - 0 % Myelocyte % 1 (*) 0 - 0 % Neutrophil Abs 1.6 1.5 - 6.3 x10(3)/mcL Band Abs 0.0 (*) 0.2 - 0.6 x10(3)/mcL Neutr Abs (ANC) 1.65 1.50 - 6.30 x10(3)/mcL Lymphocyte Abs 0.0 (*) 1.0 - 3.6 x10(3)/mcL Monocyte Abs 0.1 (*) 0.2 - 1.0 x10(3)/mcL Eosinophil Abs 0.0 0.0 - 0.5 x10(3)/mcL Basophil Abs 0.0 0.0 - 0.2 x10(3)/mcL Metamyelo Abs 0.0 0.0 - 0.0 x10(3)/mcL Myelocyte Abs 0.0 0.0 - 0.0 x10(3)/mcL Tot Diff Cell Ct 100 Plat Estimate Decreased RBC Morphology Abnormal Ovalocytes 1-5 Parmele Cells 1-5 Toxic Granulation Present POCT GLUCOSE Component Value Range POC Glucose 93 60 - 199 mg/dL Studies: None Exam: Temp: [36.6 ??C (97.9 ??F)-37.1 ??C (98.8 ??F)] Heart Rate: [58-79] Resp: [16-18] BP: (130-142)/(80-90) SpO2: [97 %-100 %] I/O last 3 completed shifts: In: 9499 [P.O.:6590; I.V.:2669; IV Piggyback:240] Out: 8835 [Urine:8400; Other:435] I/O this shift: In: 2132 [P.O.:600; I.V.:1000; IV Piggyback:532] Out: 1680 [Urine:1600; Other:80] Gen: lying in bed, NAD, oriented x3 Pulm: CTAB, no crackles/wheeze Card: normal rate/rhythm, no m/r/g Abd: non-distended, normal BS, soft, non-tender to palpation Wound: incision clean, dry, intact, no purulent drainage Ext: no edema, 2+ peripheral pulses Discharge to: Home Discharge Conditions/Prognosis: Stable Discharge Medications: Medications prior to admission that will be resumed at discharge: Medication Sig Dispense Refill ??? levothyroxine (SYNTHROID) 200 mcg tablet Take [...] mg by mouth 2 times daily. ??? Newton-3 Fatty Acids-Vitamin E (FISH OIL) 1,000 mg Cap Take 5,000 mg by mouth daily. ??? hydrOXYzine (VISTARIL) 25 mg capsule Take by mouth 2 times daily as needed. ??? CALCIUM CARBONATE (CALCIUM 600 ORAL) Take 1,200 mg by mouth daily. ??? multivitamin (THERAGRAN) tablet Take 1 tablet by mouth daily. ??? aspirin 325 mg tablet Take by mouth daily. New medications prescribed at discharge: Medication Sig Dispense Refill ??? acetaminophen (TYLENOL) 325 mg tablet Take [...] Diabetic Supplies, Miscellan. Misc Fax form to [facility] medical for testing supplies 10 times per [id number] each 12 ??? PROGRAF 1 mg capsule Take 2 capsules by mouth 2 times daily. S/P Pancreas transplant V42.83 120 capsule 6 ??? [DISCONTINUED] Magnesium Gluconate 27 mg (500 mg) Tab Take 1 tablet by mouth 3 times daily. 90 tablet 6 ??? valGANCiclovir (VALCYTE) 450 mg tablet Take 2 tablets by mouth 2 times daily. S/P Pancreas Transplant 08/28/2013 Dx V42.83 60 tablet 6 ??? PROGRAF 1 mg capsule Take 2 capsules by mouth 2 times daily. S/P Pancreas Transplant 08/28/2013 Dx V42.83 60 capsule 6 ??? DILTiazem (DILACOR XR) 120 mg 24 hr capsule Take 1 capsule by mouth daily. 30 capsule 6 ??? fluconazole (DIFLUCAN) 200 mg tablet Take 1 tablet by mouth daily. 10 tablet 6 ??? Magnesium Gluconate 27 mg (500 mg) Tab Take 1 tablet by mouth 3 times daily. 90 tablet 6 ??? pantoprazole (PROTONIX) 40 mg tablet Take 1 tablet by mouth daily. 90 tablet 3 ??? [DISCONTINUED] sulfamethoxazole-trimethoprim (BACTRIM;SEPTRA) 400-80 mg per tablet Take 1 tabletby mouth daily. 30 tablet 6 ??? [DISCONTINUED] potassium phosphate, monobasic, (K-PHOS) 500 mg tablet Take 1 tablet by mouth 3 times daily. 90 tablet 6 Updated Allergies/ADRs: Allergies Allergen Reactions ??? Nexium (Esomeprazole Magnesium) Diarrhea Any acid reflux medication causes severe diarrhea ??? Prilosec (Omeprazole Magnesium) Diarrhea ??? Reglan (Metoclopramide Hcl) TD ??? Simvastatin Follow-up Recommendations for Providers: Will need immediate attention for any signs of infection and any episode of hyperglycemia. Please check any medication changes with the [facility] transplant clinic. PCP: ANNA DENT MD Scheduled Appointments: Future Appointments Date Time Provider Department Center 09/06/2013 7:50 AM Leena Nicholson MD [facility] 3A [facility] 09/06/2013 10:30 AM Kj Alexandra MD [facility] TRANS 2M [facility] 10/28/2013 8:00 AM Divya Coles MD [facility] ENDO 5C [facility] 10/28/2013 9:30 AM Sheila Landeros RN [facility] 5C [facility] 11/07/2013 1:45 PM Geoffrey Martinez MD [facility] NEURO 3C [facility] Outpatient Services/Studies: Referral to Home Health Order Comments: DISCHARGE DOCUMENTATION FOR [facility]NA SERVICES (INCLUDING THOSE PATIENTS WITH MEDICARE COVERAGE BEING DISCHARGED HOME WITH VNA SERVICES AND THOSE PATIENTS WITH MEDICARE COVERAGE WHO ARE BEINGDISCHARGED HOME WITH HOSPICE SERVICES) In discussion with the attending physician, it is certified that this patient is under their care and that they, or a nurse practitioner, clinical nurse specialist or physician's cafeteria assistant who is working directly with them, had a face to face encounter that meets the physician face to face encounter re quirements with this patient on 09/02/13. The encounter with the patient was in whole, or in part, for the following medical condition, which is the primary reason for home health care services: [ Type 1 Diabetes. OR on 08/28/13 Pancreas transplant. ] In discussion with the primary medical team, it is certified that, based on their findings, the indicated services are medically necessary and appropriate for home health services. Please note that any additional orders needs or changes will need to be obtained from [facility] Transplant Clinic [phone] or from this patient's PCP: ANNA DENT MD [address] [place] [address] All A agencies which cover the area of patient's residence have been reviewed, either verbally or in writing, and patient/family have chosen the indicated home health care agency for home services. [facility] PHONE: [phone] FAX: [phone] RN visits to be within 24hr of discharge to home, if possible. RN visits 3- 4times for post-operativeassessment, checking for signs and symptoms of infection. Assess nutrition and hydration/abdomen/stooling pattern.Check weight and intake/output records. Reinforcement of teaching about GERALD drain care/em ptying and recording amount of drainage. Assess blood sugars. Cardio-pulmonary assessment. Medication review. PICC line management. Reinforcement of teaching about IV hydration via PICC line. Question Response Notes Agency name and contact information [facility] Patient location post discharge home What services are requested Registered Nurse Start date 09/03/2013 Responsible MD post discharge contact info [facility] Dr. Leilani Keller and PCP Anna Dent Referral for Home Hydration Order Comments: Home Infusion Company Orders Home infusion company: [employer] [place], [place] or Patient name: Richard PerezpDOB: 1965 Diagnosis requiring IV therapy: Pancreas transplant on 08/28/13. HT: 6' WT: 214lbs Diabetic: Yes Allergies: -- Nexium (Esomeprazole Magnesium) -- Diarrhea -- Any acid reflux medication causes severe diarrhea -- Prilosec (Omeprazole Magnesium) -- Diarrhea -- Reglan (Metoclopramide Hcl) -- TD -- Simvastatin IV Access Type: PICC Date placed & correct position confirmed by Radiologist: 08/30/13 PHYSICIAN???S ORDERS - to be completed by provider*. *Medication 1: Normal Saline Dose: 1liter Route: IV Frequency: Each day Rate of Infusion: 250ml/hr Next dose due: September 03Thursday Stop date & duration : to be determined at Transplant Clinic appointment *IV Catheter Maintenance per protocol (*see below): Yes *Venous Access Device Maintenance Protocols Adult CVC / PICC: Flush protocol with medication infusion (SASH) Before Med: 3-10ml saline flush After Med: 3-10ml saline flush then 1-5ml 10 Units/ml heparin flush Additional Lumens: Flush daily with 1-5ml heparin 10unit/ml; NS 3-10ml/prn Flush without med (each lumen): 1-5ml heparin 10unit/ml daily; NS 3-10ml/prn Sterile Dressing and injection port change: Weekly/PRN Catheter Occlusion Management: Instill reconstituted CathFlo up to 2mg per instillation based on thevolume of the catheter lumen; may repeat X1 per occlusion incident. Question Response Notes Vendor / contact information [facility] Patient location post discharge home Service requested PICC print line inspector and home IV hydration Start date 09/03/2013 Responsible MD post discharge contact info [facility] Dr. Leilani Keller and PCP Anna Dent Instructions Given to Patient at Discharge:. An After Visit Summary was printed and given to the patient. Provider Instructions Patient Instructions: Call your doctor if: Monitor your incision for the following signs and symptoms of infection: Redness or swelling, (some mild redness around the incision and the staple/suture sites is normal) Drainage or bleeding Fever over 100.5 F Increased pain or discomfort at the incision site Persistent vomiting or the inability to keep foods or fluids down in a 24 hour period Your blood glucose levels rise above 200 You have new pain on the right sideof your abdomen Or any other concern, such as trouble breathing, pain with urination, or new leg pain/swelling. Also, please call with increasing abdominal pain, firmness, stop passing gas for an extended period of time, or bloody bowel movements or vomitus. CALL THE TRANSPLANT SURGERY CLINIC DURING WORKING HOURS AT [phone], OR CALL AFTER CLINIC HOURS, WEEKENDS AND HOLIDAYS: ASK FOR THE SURGERY RESIDENT CRIMINAL LEGAL ASSISTANT IF ANY OF THE ABOVE OCCUR. Activity level: No heavy lifting until cleared to do so at follow-up appointment. Otherwise activityas tolerated by comfort level. Diet: You may resume your regular diet as tolerated. You must drink 5-6 liters of fluid daily. Checkyour blood glucose before meals and nightly until directed otherwise. Driving: No driving while still taking opioid pain medications (wait at least 6- 8 hours since last dose). No driving if you are still sore from surgery as it may limit your ability to react quickly if necessary. Shower/Bath: You may shower and get incision(s) wet. Pat dry immediately following. Do not scrub them vigorously for the next 2-3 weeks. Do not soak incision(s) for the next 2 weeks (i.e. soaking in bath or swimming) as this may promote a wound infection. Wound Care: Wash incision with soap and water, pat dry, and leave open to air. Allow steri-strips (pieces of tape) to fall off on their own if you have them. You may cover with gauze as needed to prevent incision rubbing on clothes or for any seepage. [facility] Drain Nursing Discharge Instructions: Inspect the skin around the insertion site daily for signs of infection such as: Redness or swelling Pus or drainage Fever over 100 F (38 C) or chills Increased pain or discomfort at the insertion site Washing instructions: Gently wash the skin with tap water and pat dry Rinse and air dry the skin before wearing clothes Tube Maintenance: Make sure the tube is properly secured to prevent accidental removal. Strip tubing and empty your drain in the morning and evening Record the drainage amount in the chart provided by your nurse. Call Sabrina Gomez with output less than 30cc over 24hrs for TWO CONSECUTIVE DAYS for drain removal. Contact your physician if: there is a signifigant change in drainage amount or color. if the tube becomes dislogged. if you notice signs of infections (see above). Medications: It is extremely important that you take all your medications as directed. Call if any instructions are unclear. - The instructions for Bactrim have changed after your prescription was filled. Take two tablets perday three days per week (Thursday, Thursday, Thursday) rather than one tablet daily. Pain control: you may find that all you need for adequate pain control are over the counter medications including acetaminophen. However, you will be provided with some prescription pain medication that you can take for severe pain. You may take over the counter pain medications for post-operative discomfort and the prescription pain medication for severe pain. Acetaminophen 650 mg by mouth every six hours as needed. Naproxen twice daily as needed. Follow up Appointments: The following appointments have been scheduled for you: Future Appointments Date Time Provider Department Center 09/06/2013 7:50 AM Leena Nicholson MD [facility]THO 3A [facility] 09/06/2013 10:30 AM Kj Alexandra MD LE[facility] TRANS 2M [facility] 10/28/2013 8:00 AM Divya Coles MD [facility] ENDO 5C [facility] 10/28/2013 9:30 AM Sheila Landeros RN [facility] ENDO 5C [facility] 11/07/2013 1:45 PM Geoffrey Martinez MD LE[facility] NEURO 3C [facility] You will need lab work before your September [address] Alexandra, please go to 3L by 9:30and take your morning prograff dose after the labs are drawn. General Instructions None Provider Contact Information: [phone] Signed: LONNIE YEUNG MD 09/02/2013 I examined the patient, reviewed all of the above findings and assessment of Dr. Yeung and formulated the recommendations which accurately reflect mine. We will continue to hold valproic acid for seizures as these might have been associated with hypoglycemic attacks. His pancreas tx ought to counter act that problem. Additionally due to falling wbc we cut his MMF to 500 mg BID, Valcyte to 450 mg daily, and TMP sulfa to tiweekly. Plan of Care - Isis London RN - 09/02/2013 6:51 AM EST Problem: Skin Integrity Impairment, Risk/Actual (Adult, Obstetric) Goal: Skin Integrity Impairment, Risk/Actual: Skin Integrity/Wound Healing Outcome: Present (see interventions, notes) Pt with midline abdominal incision, open to air with van, well approximated, no drainage. All other skin areas intact. Problem: Trauma/Injury Risk (Adult, Obstetric) Goal: Trauma/Injury Risk: Absence of Trauma/Injury/Falls Outcome: Absent and monitoring A&O x 4, call nicholson within reach, using appropriately for assistance. Up in room independently with non-skid slippers, steady gait, no falls. Problem: Pain, Acute (Adult, Obstetric) Goal: Acute Pain: Acceptable Pain Control/Comfort Level - Pain, Acute (Adult, Obstetric) Outcome: Therapy, goal partially met Pt with c/o abdominal pain @ incision site, states it's achy 5-10. Taking po tylenol and dilaudid with reported adequate pain relief. See doc flow sheets and MAR for assessments and interventions. Plan of Care - Yolie Bearden RN - 09/01/2013 5:03 PM EST Problem: Skin Integrity Impairment, Risk/Actual (Adult, Obstetric) Goal: Skin Integrity Impairment, Risk/Actual: Skin Integrity/Wound Healing Outcome: Present (see interventions, notes) Pt. With surgical incision and GERALD drain to bulb suction. Skin otherwise intact, no breakdown noted, pt. Self-repositioning frequently, will continue to monitor. Problem: Trauma/Injury Risk (Adult, Obstetric) Goal: Trauma/Injury Risk: Absence of Trauma/Injury/Falls Outcome: Absent and monitoring Pt. Has not fallen. Interventions/prevention strategies documented in flowsheets. Problem: Pain, Acute (Adult, Obstetric) Goal: Acute Pain: Acceptable Pain Control/Comfort Level - Pain, Acute (Adult, Obstetric) Outcome: Present (see interventions, notes) Pt. Reports acceptable pain control. Interventions in flowsheets. Plan of Care - Sylvain Arboleda, MIGUELITO - 08/31/2013 2:54 PM EST Problem: Skin Integrity Impairment, Risk/Actual (Adult, Obstetric) Goal: Skin Integrity Impairment, Risk/Actual: Skin Integrity/Wound Healing Abdominal incision MIRYAM with van; healing well without signs of infection or drainage; right GERALD site without site drainage and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 [facility]SCU in good condition. There were no intra-operative complications. Brief Op Note - Nestor Perez - 08/28/2013 10:59 AM EST Brief Operative Note Patient Name: Richard Hsu : [id number] MR#: [id number] Case Date: 08/28/2013 Surgeon: Surgeon(s) and Role: * Leilani Keller MD - Primary * Nestor Perez MD - Resident-Surgeon Jeyson Preoperative diagnosis: diabetes Postoperative diagnosis: s/p pancreas transplant Procedure(s): @PANCREATIC TRANSPLANT @PREPARATION CADAVERIC PANCREAS, STANDARD Anesthesia: General Findings: pancreas implanted to Right iliacs and proximal jejunum. Complications: no immediate Fluids: pls see anesthesia flow sheet Estimated Blood Loss: 200 cc Drains: 19 Fr Cachorro in pelvis Disposition: awakened from anesthesia, extubated and taken to the recovery room in a stable condition, having suffered no apparent untoward event. Condition: doing well without problems (Please see the Surgical Encounter Summary for any Implant and Specimen details pertinent to this patient.) Miscellaneous - Provider, Scanning - 08/27/2013 10:58 PM EST documented in this encounter Plan of Treatment Not on filedocumented as of this encounter Procedures Procedure Name Priority Date/Time Associated Diagnosis Comme nts LAB SCAN 09/03/2013 9:07 Results for this AM EST procedure are i n the results section. STILE RIPSAW OPERATOR SCAN 09/03/2013 9:07 Resu lts for this AM EST procedure are i n the results section. POCT GLUCOSE Routine 09/02/2013 7:07 Results for this AM EST procedure are i n the results section. DIFFERENTIAL, MANUAL Routine 09/02/2013 3:25 Resu lts for this AM EST procedure are i n the results section. CBC (WITH DIFF) Routine 09/02/2013 3:25 Results f or this AM EST procedure are i n the results section. PHOSPHORUS Routine 09/02/2013 3:25 Results for this AM EST procedure are i n the results section. MAGNESIUM Routine 09/02/2013 3:25 Results for this AM EST procedure are i n the results section. LIPASE Routine 09/02/2013 3:25 Results for this AM EST procedure are i n the results section. AMYLASE Routine 09/02/2013 3:25 Results for this AM EST procedure are i n the results section. BASIC METABOLIC PANEL Routine 09/02/2013 3:25 Res ults for this (NON-FASTING) AM EST procedure are in the results section. POCT GLUCOSE Routine 09/02/2013 3:24 Results for this AM EST procedure are i n the results section. POCT GLUCOSE Routine 09/02/2013 12:03 Results for this AM EST procedure are i n the results section. POCT GLUCOSE Routine 09/01/2013 6:47 Results for this PM EST procedure are i n the results section. POCT GLUCOSE Routine 09/01/2013 3:42 Results for this PM EST procedure are i n the results section. POCT GLUCOSE Routine 09/01/2013 11:46 Results for this AM EST procedure are i n the results section. DIFFERENTIAL, Routine 09/01/2013 8:00 Results for this AUTOMATED AM EST procedure are i n the results section. TACROLIMUS LEVEL Routine 09/01/2013 8:00 Results for this AM EST procedure are i n the results section. CBC (WITH DIFF) Routine 09/01/2013 8:00 Results f or this AM EST procedure are i n the results section. PHOSPHORUS Routine 09/01/2013 8:00 Results for this AM EST procedure are i n the results section. MAGNESIUM Routine 09/01/2013 8:00 Results for this AM EST procedure are i n the results section. LIPASE Routine 09/01/2013 8:00 Results for this AM EST procedure are i n the results section. AMYLASE Routine 09/01/2013 8:00 Results for this AM EST procedure are i n the results section. BASIC METABOLIC PANEL Routine 09/01/2013 8:00 Res ults for this (NON-FASTING) AM EST procedure are in the results section. POCT GLUCOSE Routine 09/01/2013 7:26 Results for this AM EST procedure are i n the results section. POCT GLUCOSE Routine 09/01/2013 3:53 Results for this AM EST procedure are i n the results section. POCT GLUCOSE Routine 09/01/2013 12:28 Results for this AM EST procedure are i n the results section. POCT GLUCOSE Routine 08/31/2013 6:45 Results for this PM EST procedure are i n the results section. POCT GLUCOSE Routine 08/31/2013 4:02 Results for this PM EST procedure are i n the results section. POCT GLUCOSE Routine 08/31/2013 11:17 Results for this AM EST procedure are i n the results section. POCT GLUCOSE Routine 08/31/2013 7:16 Results for this AM EST procedure are i n the results section. POCT GLUCOSE Routine 08/31/2013 3:17 Results for this AM EST procedure are i n the results section. DIFFERENTIAL, Routine 08/31/2013 3:13 Results for this AUTOMATED AM EST procedure are i n the results section. CBC (WITH DIFF) Routine 08/31/2013 3:13 Results f or this AM EST procedure are i n the results section. PHOSPHORUS Routine 08/31/2013 3:13 Results for this AM EST procedure are i n the results section. MAGNESIUM Routine 08/31/2013 3:13 Results for this AM EST procedure are i n the results section. LIPASE Routine 08/31/2013 3:13 Results for this AM EST procedure are i n the results section. AMYLASE Routine 08/31/2013 3:13 Results for this AM EST procedure are i n the results section. BASIC METABOLIC PANEL Routine 08/31/2013 3:13 Res ults for this (NON-FASTING) AM EST procedure are in the results section. POCT GLUCOSE Routine 08/30/2013 11:16 Results for this PM EST procedure are i n the results section. POCT GLUCOSE Routine 08/30/2013 8:02 Results for this PM EST procedure are i n the results section. POCT GLUCOSE Routine 08/30/2013 4:29 Results for this PM EST procedure are i n the results section. XR PICC PLACEMENT OVER Routine 08/30/2013 3:50 Re sults for this 5 YEARS (IV TEAM) PM EST procedure are in the results section. POCT GLUCOSE Routine 08/30/2013 12:00 Results for this PM EST procedure are i n the results section. POCT GLUCOSE Routine 08/30/2013 11:22 Results for this AM EST procedure are i n the results section. POCT GLUCOSE Routine 08/30/2013 10:06 Results for this AM EST procedure are i n the results section. POCT GLUCOSE Routine 08/30/2013 9:17 Results for this AM EST procedure are i n the results section. POCT GLUCOSE Routine 08/30/2013 8:26 Results for this AM EST procedure are i n the results section. POCT GLUCOSE Routine 08/30/2013 7:06 Results for this AM EST procedure are i n the results section. DIFFERENTIAL, Routine 08/30/2013 6:35 Results for this AUTOMATED AM EST procedure are i n the results section. CBC (WITH DIFF) Routine 08/30/2013 6:35 Results f or this AM EST procedure are i n the results section. BASIC METABOLIC PANEL Routine 08/30/2013 6:35 Res ults for this (NON-FASTING) AM EST procedure are in the results section. POCT GLUCOSE Routine 08/30/2013 6:06 Results for this AM EST procedure are i n the results section. POCT GLUCOSE Routine 08/30/2013 5:03 Results for this AM EST procedure are i n the results section. POCT GLUCOSE Routine 08/30/2013 4:14 Results for this AM EST procedure are i n the results section. POCT GLUCOSE Routine 08/30/2013 3:02 Results for this AM EST procedure are i n the results section. POCT GLUCOSE Routine 08/30/2013 2:13 Results for this AM EST procedure are i n the results section. POCT GLUCOSE Routine 08/30/2013 1:18 Results for this AM EST procedure are i n the results section. DIFFERENTIAL, Routine 08/30/2013 12:45 Results fo r this AUTOMATED AM EST procedure are i n the results section. CREATININE Routine 08/30/2013 12:45 Results for this AM EST procedure are i n the results section. CBC (WITH DIFF) Routine 08/30/2013 12:45 Results for this AM EST procedure are i n the results section. BUN Routine 08/30/2013 12:45 Results for this AM EST procedure are i n the results section. PHOSPHORUS Routine 08/30/2013 12:45 Results for this AM EST procedure are i n the results section. MAGNESIUM Routine 08/30/2013 12:45 Results for this AM EST procedure are i n the results section. LIPASE Routine 08/30/2013 12:45 Results for this AM EST procedure are i n the results section. GLUCOSE, RANDOM Routine 08/30/2013 12:45 Results for this AM EST procedure are i n the results section. AMYLASE Routine 08/30/2013 12:45 Results for this AM EST procedure are i n the results section. ELECTROLYTES PANEL Routine 08/30/2013 12:45 Resul ts for this AM EST procedure are i n the results section. POCT GLUCOSE Routine 08/30/2013 12:08 Results for this AM EST procedure are i n the results section. POCT GLUCOSE Routine 08/29/2013 10:53 Results for this PM EST procedure are i n the results section. POCT GLUCOSE Routine 08/29/2013 9:57 Results for this PM EST procedure are i n the results section. POCT GLUCOSE Routine 08/29/2013 9:19 Results for this PM EST procedure are i n the results section. POCT GLUCOSE Routine 08/29/2013 8:08 Results for this PM EST procedure are i n the results section. DIFFERENTIAL, Routine 08/29/2013 6:35 Results for this AUTOMATED PM EST procedure are i n the results section. CBC (WITH DIFF) Routine 08/29/2013 6:35 Results f or this PM EST procedure are i n the results section. BASIC METABOLIC PANEL Routine 08/29/2013 6:35 Res ults for this (NON-FASTING) PM EST procedure are in the results section. POCT GLUCOSE Routine 08/29/2013 6:34 Results for this PM EST procedure are i n the results section. POCT GLUCOSE Routine 08/29/2013 5:25 Results for this PM EST procedure are i n the results section. POCT GLUCOSE Routine 08/29/2013 3:52 Results for this PM EST procedure are i n the results section. POCT GLUCOSE Routine 08/29/2013 3:16 Results for this PM EST procedure are i n the results section. POCT GLUCOSE Routine 08/29/2013 2:10 Results for this PM EST procedure are i n the results section. POCT GLUCOSE Routine 08/29/2013 1:06 Results for this PM EST procedure are i n the results section. DIFFERENTIAL, Routine 08/29/2013 12:25 Results fo r this AUTOMATED PM EST procedure are i n the results section. CBC (WITH DIFF) Routine 08/29/2013 12:25 Results for this PM EST procedure are i n the results section. BASIC METABOLIC PANEL Routine 08/29/2013 12:25 Re sults for this (NON-FASTING) PM EST procedure are in the results section. POCT GLUCOSE Routine 08/29/2013 12:06 Results for this PM EST procedure are i n the results section. POCT GLUCOSE Routine 08/29/2013 11:10 Results for this AM EST procedure are i n the results section. POCT GLUCOSE Routine 08/29/2013 10:18 Results for this AM EST procedure are i n the results section. POCT GLUCOSE Routine 08/29/2013 8:59 Results for this AM EST procedure are i n the results section. POCT GLUCOSE Routine 08/29/2013 7:51 Results for this AM EST procedure are i n the results section. POCT GLUCOSE Routine 08/29/2013 7:12 Results for this AM EST procedure are i n the results section. DIFFERENTIAL, Routine 08/29/2013 6:30 Results for this AUTOMATED AM EST procedure are i n the results section. CBC (WITH DIFF) Routine 08/29/2013 6:30 Results f or this AM EST procedure are i n the results section. BASIC METABOLIC PANEL Routine 08/29/2013 6:30 Res ults for this (NON-FASTING) AM EST procedure are in the results section. POCT GLUCOSE Routine 08/29/2013 6:24 Results for this AM EST procedure are i n the results section. POCT GLUCOSE Routine 08/29/2013 5:08 Results for this AM EST procedure are i n the results section. POCT GLUCOSE Routine 08/29/2013 4:01 Results for this AM EST procedure are i n the results section. POCT GLUCOSE Routine 08/29/2013 3:04 Results for this AM EST procedure are i n the results section. POCT GLUCOSE Routine 08/29/2013 1:59 Results for this AM EST procedure are i n the results section. POCT GLUCOSE Routine 08/29/2013 1:02 Results for this AM EST procedure are i n the results section. DIFFERENTIAL, Routine 08/29/2013 12:30 Results fo r this AUTOMATED AM EST procedure are i n the results section. CBC (WITH DIFF) Routine 08/29/2013 12:30 Results for this AM EST procedure are i n the results section. PHOSPHORUS Routine 08/29/2013 12:30 Results for this AM EST procedure are i n the results section. MAGNESIUM Routine 08/29/2013 12:30 Results for this AM EST procedure are i n the results section. LIPASE Routine 08/29/2013 12:30 Results for this AM EST procedure are i n the results section. AMYLASE Routine 08/29/2013 12:30 Results for this AM EST procedure are i n the results section. BASIC METABOLIC PANEL Routine 08/29/2013 12:30 Re sults for this (NON-FASTING) AM EST procedure are in the results section. POCT GLUCOSE Routine 08/29/2013 12:08 Results for this AM EST procedure are i n the results section. POCT GLUCOSE Routine 08/28/2013 11:05 Results for this PM EST procedure are i n the results section. POCT GLUCOSE Routine 08/28/2013 10:02 Results for this PM EST procedure are i n the results section. POCT GLUCOSE Routine 08/28/2013 8:58 Results for this PM EST procedure are i n the results section. POCT GLUCOSE Routine 08/28/2013 8:06 Results for this PM EST procedure are i n the results section. POCT GLUCOSE Routine 08/28/2013 7:10 Results for this PM EST procedure are i n the results section. POCT GLUCOSE Routine 08/28/2013 6:15 Results for this PM EST procedure are i n the results section. DIFFERENTIAL, MANUAL Routine 08/28/2013 6:05 Resu lts for this PM EST procedure are i n the results section. CBC (WITH DIFF) Routine 08/28/2013 6:05 Results f or this PM EST procedure are i n the results section. BASIC METABOLIC PANEL Routine 08/28/2013 6:05 Res ults for this (NON-FASTING) PM EST procedure are in the results section. POCT GLUCOSE Routine 08/28/2013 5:18 Results for this PM EST procedure are i n the results section. POCT GLUCOSE Routine 08/28/2013 4:13 Results for this PM EST procedure are i n the results section. APTT STAT 08/28/2013 3:50 Results for this PM EST procedure are i n the results section. PROTHROMBIN TIME STAT 08/28/2013 3:50 Results for this PM EST procedure are i n the results section. POCT GLUCOSE Routine 08/28/2013 2:37 Results for this PM EST procedure are i n the results section. POCT GLUCOSE Routine 08/28/2013 1:10 Results for this PM EST procedure are i n the results section. POCT GLUCOSE Routine 08/28/2013 12:18 Results for this PM EST procedure are i n the results section. DIFFERENTIAL, Routine 08/28/2013 11:40 Results fo r this AUTOMATED AM EST procedure are i n the results section. APTT STAT 08/28/2013 11:40 Results for this AM EST procedure are i n the results section. PROTHROMBIN TIME STAT 08/28/2013 11:40 Results for this AM EST procedure are i n the results section. CBC (WITH DIFF) Routine 08/28/2013 11:40 Results for this AM EST procedure are i n the results section. MAGNESIUM STAT 08/28/2013 11:40 Results for this AM EST procedure are i n the results section. COMPREHENSIVE STAT 08/28/2013 11:40 Results fo r this METABOLIC PANEL AM EST procedure ar e in (NON-FASTING) the results section. XR CHEST ONE VIEW Routine 08/28/2013 11:24 Result s for this AM EST procedure are i n the results section. POCT GLUCOSE Routine 08/28/2013 11:00 Results for this AM EST procedure are i n the results section. BLOOD GAS 2 ARTERIAL Routine 08/28/2013 10:01 Res ults for this AM EST procedure are i n the results section. BLOOD GAS 2 ARTERIAL Routine 08/28/2013 9:31 Resu lts for this AM EST procedure are i n the results section. BLOOD GAS 2 ARTERIAL Routine 08/28/2013 8:59 Resu lts for this AM EST procedure are i n the results section. PREPARE RBC STAT 08/28/2013 8:40 Results for this AM EST procedure are i n the results section. BLOOD GAS 2 ARTERIAL Routine 08/28/2013 8:00 Resu lts for this AM EST procedure are i n the results section. @PREPARATION CADAVERIC 08/28/2013 6:21 pancreatitis PANCREAS, STANDARD AM EST (WRVU 10.28) @PANCREATIC TRANSPLANT 08/28/2013 6:21 pancreatitis (WRVU 37.8) AM EST POCT GLUCOSE Routine 08/28/2013 5:18 Results for this AM EST procedure are i n the results section. POCT GLUCOSE Routine 08/28/2013 3:56 Results for this AM EST procedure are i n the results section. DIFFERENTIAL, STAT 08/28/2013 1:34 Results for this AUTOMATED AM EST procedure are i n the results section. HEPATITIS C ANTIBODY Routine 08/28/2013 1:34 Resu lts for this AM EST procedure are i n the results section. HIV SCREEN, 4TH Routine 08/28/2013 1:34 Results f or this GENERATION AM EST procedure are i n ([facility]D/[facility]) the resul ts section. CMV ANTIBODY, IGG Routine 08/28/2013 1:34 Results for this AM EST procedure are i n the results section. APTT STAT 08/28/2013 1:34 Results for this AM EST procedure are i n the results section. PROTHROMBIN TIME STAT 08/28/2013 1:34 Results for this AM EST procedure are i n the results section. CBC (WITH DIFF) STAT 08/28/2013 1:34 Results f or this AM EST procedure are i n the results section. VARICELLA ZOSTER Routine 08/28/2013 1:34 Results for this ANTIBODY, IGG AM EST procedure are in the results section. PHOSPHORUS STAT 08/28/2013 1:34 Results for this AM EST procedure are i n the results section. MAGNESIUM STAT 08/28/2013 1:34 Results for this AM EST procedure are i n the results section. COMPREHENSIVE STAT 08/28/2013 1:34 Results for this METABOLIC PANEL AM EST procedure ar e in (NON-FASTING) the results section. ABO/RH TYPING STAT 08/28/2013 1:28 Results for this AM EST procedure are i n the results section. ANTIBODY SCREEN STAT 08/28/2013 1:28 Results f or this AM EST procedure are i n the results section. TYPE AND SCREEN STAT 08/28/2013 1:28 ([facility] [place]) AM EST XR CHEST PA AND Routine 08/28/2013 12:41 Results for this LATERAL AM EST procedure are i n the results section. EKG 12-LEAD STAT 08/27/2013 11:47 Diabetes mellitus Result s for this PM EST procedure are i n the results section. POCT GLUCOSE Routine 08/27/2013 11:35 Results for this PM EST procedure are i n the results section. documented in this encounter Results SCAN DOC: STILE RIPSAW OPERATOR (09/03/2013 9:07 AM EST) Narrative 09/03/2013 9:24 AM EST Procedure Note Provider, Scanning - 09/03/2013 9:07 AM EST Scanning Provider MEDIA MGR SCAN EXT ORDR/RSLT SCAN DOC: LAB (09/03/2013 9:07 AM EST) Narrative 09/03/2013 9:07 AM EST Procedure Note Provider, Scanning - 09/03/2013 9:07 AM EST Scanning Provider MEDIA MGR SCAN EXT ORDR/RSLT POCT Glucose (09/02/2013 7:07 AM EST) P athologist Signature POC Glucose 93 60 - 199 CERNER mg/dL MILLENNIUM Comment: Supplemental ranges: <110 mg/dL before meals <200 mg/dL all other times of the day Specimen Anatomical Collection Method Collection Time Receive d Time (Source) Location / / Volume Laterality Blood specimen 09/02/2013 7:07 AM 014 7:07 (specimen) EST AM EST Leilani Keller MD POINT OF CARE TEST ORDERABLE S Performing Organization Address City/State/ZIP Code Phon e Number [place] [id number] CERNER MILLENNIUM (ABNORMAL) Differential, Manual (09/02/2013 3:25 AM EST) Patholo gist Method Time Signature Neutrophil % 88 (H) 34 - 71 % CERNER MILLENNIUM Band % 1 0 - 12 % CERNER MILLENNIUM Lymphocyte % 1 (L) 19 - 53 % CERNER MILLENNIUM Monocyte % 4 4 - 13 % CERNER MILLENNIUM Eosinophil % 2 0 - 7 % CERNER MILLENNIUM Basophil % 2 0 - 2 % CERNER MILLENNIUM Metamyelo % 1 (H) 0 - 0 % CERNER MILLENNIUM Myelocyte % 1 (H) 0 - 0 % CERNER MILLENNIUM Neutrophil Abs 1.6 1.5 - 6.3 CERNER x10(3)/mc MILLENNIUM L Band Abs 0.0 (L) 0.2 - 0.6 CERNER x10(3)/mc MILLENNIUM L Neutr Abs (ANC) 1.65 1.50 - CERNER 6.30 MILLENNIUM x10(3)/mc L Lymphocyte Abs 0.0 (L) 1.0 - 3.6 CERNER x10(3)/mc MILLENNIUM L Monocyte Abs 0.1 (L) 0.2 - 1.0 CERNER x10(3)/mc MILLENNIUM L Eosinophil Abs 0.0 0.0 - 0.5 CERNER x10(3)/mc MILLENNIUM L Basophil Abs 0.0 0.0 - 0.2 CERNER x10(3)/mc MILLENNIUM L Metamyelo Abs 0.0 0.0 - 0.0 CERNER x10(3)/mc MILLENNIUM L Myelocyte Abs 0.0 0.0 - 0.0 CERNER x10(3)/mc MILLENNIUM L Tot Diff Cell [address] MILLENNIUM Plat Estimate Decreased CERNER MILLENNIUM RBC Morphology Abnormal CERNER MILLENNIUM Ovalocytes 1-5 /HPF CERNER MILLENNIUM Parmele Cells 1-5 /HPF CERNER MILLENNIUM Toxic Present CERNER Granulation MILLENNIUM Specimen Anatomical Collection Method Collection Time Receive d Time (Source) Location / / Volume Laterality Blood specimen 09/02/2013 3:25 AM 014 3:43 (specimen) EST AM EST Resulting Agency Comment Spec In Lab Leilani Keller MD HEMATOLOGY ORDERABLES Performing Organization Address City/State/[place] [address] CERNER MILLENNIUM (ABNORMAL) CBC (with Diff) (09/02/2013 3:25 AM EST) P athologist Signature WBC 1.8 4.0 - 10.0 CERNER (Critical) x10(3)/mcL MILLENNIUM Comment: This result has been called to JESS HUITRON RR by [facility] on 09.02.13 at 03:49, and has been read carlos k (). RBC 3.23 (L) 4.63 - 6.08 x10(6)/mcL CERNER MILLENNIUM Hemoglobin 9.7 (L) 13.7 - 17.5 gm/dL CERNER MILL ENNIUM Hematocrit 28.0 (L) 40.0 - 51.0 % CERNER MILLENNI UM MCV 86.7 79.0 - 92.0 fL CERNER MILLENNI UM MCH 30.0 25.6 - 32.2 pg CERNER MILLENNI UM MCHC 34.6 32.0 - 36.5 gm/dL CERNER MILLE NNIUM Platelets 121 (L) 145 - 370 x10(3)/mcL CERNER DC LLENNIUM RDWSD 39.3 35.0 - 46.0 fL CERNER MILLENNI UM RDWCV 12.4 10.9 - 14.4 % CERNER MILLENNIU M MPV 10.3 9.0 - 12.0 fL CERNER MILLENNIU M Specimen Anatomical Collection Method Collection Time Receive d Time (Source) Location / / Volume Laterality Blood specimen 09/02/2013 3:25 AM 014 3:43 (specimen) EST AM EST Resulting Agency Comment Spec In Lab Leilani Keller MD HEMATOLOGY ORDERABLES Performing Organization Address City/State/[place] [address] CERNER MILLENNIUM (ABNORMAL) Basic Metabolic Panel (non-fasting) (09/02/2013 3:25 AM EST) P athologist Signature Glucose Lvl 85 60 - 199 CERNER mg/dL MILLENNIUM Comment: Diabetes: >=200 mg/dL plus symp toms BUN 8 (L) 10 - 20 mg/dL CERNER MILLENNIU M Creatinine 0.84 0.80 - 1.50 mg/dL CERNER MILL ENNIUM Comment: Please note that the pediatric reference intervals supplied above were not validated at [facility] [place]. Results from pediatri c patients should be interpreted in conjunction to the patient's age, height and muscle mass. Sodium 140 135 - 145 mmol/L CERNER LALA NIUM Potassium 3.1 (L) 3.5 - 5.0 mmol/L CERNER LALA NIUM Comment: Please note: ??Patients with WBC >100,00 0 may have falsely elevated Potassium levels. ??For accurate Potassium quantif ication in these patients send serum separator tube (gold top) for subsequent determinations. ??Contact the Clinical Chemistry Laboratory if there are any qu estions. Chloride 105 98 - 107 mmol/L CERNER MILLENN IUM CO2 27 22 - 31 mmol/L CERNER MILLENNI UM Anion Gap 8 5 - 15 mmol/L CERNER MILLENNIU M Calcium 8.3 (L) 8.5 - 10.5 mg/dL CERNER LALA NIUM [...] Location / / Volume Laterality Blood specimen 09/02/2013 3:25 AM 014 3:43 (specimen) EST AM EST Resulting Agency Comment Spec In Lab Leilani Keller MD CHEMISTRY ORDERABLES Performing Organization Address City/[facility]/ZIP Code Phon e Number [address] CERNER MILLENNIUM Phosphorus (09/02/2013 3:25 AM EST) P athologist Signature Phosphorus 3.7 2.5 - 4.5 CERNER mg/dL MILLENNIUM Specimen Anatomical Collection Method Collection Time Receive d Time (Source) Location / / Volume Laterality Blood specimen 09/02/2013 3:25 AM 014 3:43 (specimen) EST AM EST Resulting Agency Comment Spec In Lab Leilani Keller MD CHEMISTRY ORDERABLES Performing Organization Address City/[facility]/ZIP Code Phon e Number [address] CERNER MILLENNIUM (ABNORMAL) Lipase (09/02/2013 3:25 AM EST) P athologist Signature Lipase 64 (H) 0 - 60 CERNER unit/L MILLENNIUM Specimen Anatomical Collection Method Collection Time Receive d Time (Source) Location / / Volume Laterality Blood specimen 09/02/2013 3:25 AM 014 3:43 (specimen) EST AM EST Resulting Agency Comment Spec In Lab Leilani Keller MD CHEMISTRY ORDERABLES Performing Organization Address City/[facility]/ZIP Code Phon e Number [address] CERNER MILLENNIUM Amylase (09/02/2013 3:25 AM EST) P athologist Signature Amylase 70 28 - 100 CERNER unit/L MILLENNIUM Specimen Anatomical Collection Method Collection Time Receive d Time (Source) Location / / Volume Laterality Blood specimen 09/02/2013 3:25 AM 014 3:43 (specimen) EST AM EST Resulting Agency Comment Spec In Lab Leilani Keller MD CHEMISTRY ORDERABLES Performing Organization Address City/[facility]/ZIP Code Phon e Number [address] CERNER MILLENNIUM (ABNORMAL) Magnesium (09/02/2013 3:25 AM EST) P athologist Signature Magnesium 0.68 (L) 0.69 - 1.07 CERNER mmol/L MILLENNIUM Specimen Anatomical Collection Method Collection Time Receive d Time (Source) Location / / Volume Laterality Blood specimen 09/02/2013 3:25 AM 014 3:43 (specimen) EST AM EST Resulting Agency Comment Spec In Lab Leilani Keller MD CHEMISTRY ORDERABLES Performing Organization Address City/[facility]/ZIP Code Phon e Number [address] CERNER MILLENNIUM POCT Glucose (09/02/2013 3:24 AM EST) P athologist Signature POC Glucose 87 60 - 199 CERNER mg/dL MILLENNIUM Comment: Supplemental ranges: <110 mg/dL before meals <200 mg/dL all other times of the day Specimen Anatomical Collection Method Collection Time Receive d Time (Source) Location / / Volume Laterality Blood specimen 09/02/2013 3:24 AM 014 3:24 (specimen) EST AM EST Leilani Keller MD POINT OF CARE TEST ORDERABLE S Performing Organization Address City/[facility]/ZIP Code Phon e Number [address] CERNER MILLENNIUM POCT Glucose (09/02/2013 12:03 AM EST) P athologist Signature POC Glucose 98 60 - 199 CERNER mg/dL MILLENNIUM Comment: Supplemental ranges: <110 mg/dL before meals <200 mg/dL all other times of the day Specimen Anatomical Collection Method Collection Time Receive d Time (Source) Location / / Volume Laterality Blood specimen 09/02/2013 12:03 4 (specimen) AM EST 12:03 AM EST Leilani Keller MD POINT OF CARE TEST ORDERABLE S Performing Organization Address City/[facility]/ZIP Code Phon e Number [address] CERNER MILLENNIUM POCT Glucose (09/01/2013 6:47 PM EST) P athologist Signature POC Glucose 96 60 - 199 CERNER mg/dL MILLENNIUM Comment: Supplemental ranges: <110 mg/dL before meals <200 mg/dL all other times of the day Specimen Anatomical Collection Method Collection Time Receive d Time (Source) Location / / Volume Laterality Blood specimen 09/01/2013 6:47 PM 014 6:47 (specimen) EST PM EST Leilani Keller MD POINT OF CARE TEST ORDERABLE S Performing Organization Address City/[facility]/ZIP Code Phon e Number [address] CERNER MILLENNIUM POCT Glucose (09/01/2013 3:42 PM EST) P athologist Signature POC Glucose 106 60 - 199 CERNER mg/dL MILLENNIUM Comment: Supplemental ranges: <110 mg/dL before meals <200 mg/dL all other times of the day Specimen Anatomical Collection Method Collection Time Receive d Time (Source) Location / / Volume Laterality Blood specimen 09/01/2013 3:42 PM 014 3:42 (specimen) EST PM EST Leilani Keller MD POINT OF CARE TEST ORDERABLE S Performing Organization Address City/[facility]/ZIP Code Phon e Number [address] CERNER MILLENNIUM POCT Glucose (09/01/2013 11:46 AM EST) P athologist Signature POC Glucose 127 60 - 199 CERNER mg/dL MILLENNIUM Comment: Supplemental ranges: <110 mg/dL before meals <200 mg/dL all other times of the day Specimen Anatomical Collection Method Collection Time Receive d Time (Source) Location / / Volume Laterality Blood specimen 09/01/2013 11:46 4 (specimen) AM EST 11:46 AM EST Leilani Keller MD POINT OF CARE TEST ORDERABLE S Performing Organization Address City/State/ZIP Code Phon e Number [place] [phone] CERNER MILLENNIUM (ABNORMAL) Differential, Automated (09/01/2013 8:00 AM EST) [facility] Method Time Signature Neutrophils % 94.0 (H) 34.0 - CERNER 71.0 % MILLENNIUM Neutr Abs (ANC) 3.35 1.50 - CERNER 6.30 MILLENNIUM x10(3)/mc L Lymphocytes % 2.0 (L) 19.0 - CERNER 53.0 % MILLENNIUM Lymphocytes Abs 0.1 (L) 1.0 - 3.6 CERNER x10(3)/mc MILLENNIUM L Monocytes % 2.8 (L) 4.0 - CERNER 13.0 % MILLENNIUM Monocyte Abs 0.1 (L) 0.2 - 1.0 CERNER x10(3)/mc MILLENNIUM L Eosinophils % 0.6 0.0 - 7.0 CERNER % MILLENNIUM Eosinophils Abs 0.0 0.0 - 0.5 CERNER x10(3)/mc MILLENNIUM L Basophils % 0.0 0.0 - 2.0 CERNER % MILLENNIUM Basophils [...] Location / / Volume Laterality Blood specimen 09/01/2013 8:00 AM 014 8:16 (specimen) EST AM EST Leilani Keller MD HEMATOLOGY ORDERABLES Performing Organization Address City/[facility]/ZIP [facility] [place] [address] CERNER MILLENNIUM (ABNORMAL) CBC (with Diff) (09/01/2013 8:00 AM EST) P athologist Signature WBC 3.6 (L) 4.0 - 10.0 CERNER x10(3)/mcL MILLENNIUM RBC 3.54 (L) 4.63 - CERNER 6.08 MILLENNIUM x10(6)/mcL Hemoglobin 10.6 (L) 13.7 - CERNER 17.5 gm/dL MILLENNIUM Hematocrit 30.7 (L) 40.0 - CERNER 51.0 % MILLENNIUM MCV 86.7 79.0 - CERNER 92.0 fL MILLENNIUM MCH 29.9 25.6 - CERNER 32.2 pg MILLENNIUM MCHC 34.5 32.0 - CERNER 36.5 gm/dL MILLENNIUM Platelets 123 (L) 145 - 370 CERNER x10(3)/mcL MILLENNIUM RDWSD 39.7 35.0 - CERNER 46.0 fL MILLENNIUM RDWCV 12.3 10.9 - CERNER 14.4 % MILLENNIUM MPV 10.3 9.0 - 12.0 CERNER fL MILLENNIUM Specimen Anatomical Collection Method Collection Time Receive d Time (Source) Location / / Volume Laterality Blood specimen 09/01/2013 8:00 AM 014 8:16 (specimen) EST AM EST Resulting Agency Comment Spec In Lab Leilani Keller MD HEMATOLOGY ORDERABLES Performing Organization Address City/[facility]/[place] [address] CERNER MILLENNIUM (ABNORMAL) Basic Metabolic Panel (non-fasting) (09/01/2013 8:00 AM EST) P athologist Signature Glucose Lvl 108 60 - 199 CERNER mg/dL MILLENNIUM Comment: [...] patient's age, height and muscle mass. Sodium 143 135 - 145 mmol/L CERNER LALA NIUM Potassium 3.0 (Critical) 3.5 - 5.0 mmol/L CERNER M ILLENNIUM Comment: Results rechecked-carola Called by: Sarah srivastava ad back by: vicky mcdonald, Date/Time:09/01/13 09:13. Please note: ??Patients with WBC >100,00 0 [...] - 15 mmol/L CERNER MILLENNIU M Calcium 8.2 (L) 8.5 - 10.5 mg/dL CERNER LALA NIUM [...] Location / / Volume Laterality Blood specimen 09/01/2013 8:00 AM 014 8:16 (specimen) EST AM EST Resulting Agency Comment Spec In Lab Leilani Keller MD CHEMISTRY ORDERABLES Performing Organization Address City/State/ZIP Code Phon e Number [place] [phone] CERNER MILLENNIUM Tacrolimus level (09/01/2013 8:00 AM EST) P athologist Signature Tacrolimus Lvl 7.5 ng/mL CERNER MILLENNIUM Comment: Trough therapeutic: 5-15 ng/mL Specimen Anatomical Collection Method Collection Time Receive d Time (Source) Location / / Volume Laterality Blood specimen 09/01/2013 8:00 AM 014 (specimen) EST 11:53 AM EST Resulting Agency Comment Spec In Lab Leilani Keller MD CHEMISTRY ORDERABLES Performing Organization Address City/State/ZIP Code Phon e Number [address] CERNER MILLENNIUM Phosphorus (09/01/2013 8:00 AM EST) athologist Signature Phosphorus 2.6 2.5 - 4.5 CERNER mg/dL MILLENNIUM Specimen Anatomical Collection Method Collection Time Receive d Time (Source) Location / / Volume Laterality Blood specimen 09/01/2013 8:00 AM 014 8:16 (specimen) EST AM EST Resulting Agency Comment Spec In Lab Leilani Keller MD CHEMISTRY ORDERABLES Performing Organization Address City/State/ZIP Code Phon e Number [address] CERNER MILLENNIUM (ABNORMAL) Lipase (09/01/2013 8:00 AM EST) athologist Signature Lipase 82 (H) 0 - 60 CERNER unit/L MILLENNIUM Specimen Anatomical Collection Method Collection Time Receive d Time (Source) Location / / Volume Laterality Blood specimen 09/01/2013 8:00 AM 014 8:16 (specimen) EST AM EST Resulting Agency Comment Spec In Lab Leilani Keller MD CHEMISTRY ORDERABLES Performing Organization Address City/[facility]/ZIP Code Phon e Number [address] CERNER MILLENNIUM Amylase (09/01/2013 8:00 AM EST) athologist Signature Amylase 86 28 - 100 CERNER unit/L MILLENNIUM Specimen Anatomical Collection Method Collection Time Receive d Time (Source) Location / / Volume Laterality Blood specimen 09/01/2013 8:00 AM 014 8:16 (specimen) EST AM EST Resulting Agency Comment Spec In Lab Leilani Keller MD CHEMISTRY ORDERABLES Performing Organization Address City/[facility]/ZIP Code Phon e Number [address] CERNER MILLENNIUM Magnesium (09/01/2013 8:00 AM EST) P athologist Signature Magnesium 0.76 0.69 - 1.07 CERNER mmol/L MILLENNIUM Specimen Anatomical Collection Method Collection Time Receive d Time (Source) Location / / Volume Laterality Blood specimen 09/01/2013 8:00 AM 014 8:16 (specimen) EST AM EST Resulting Agency Comment Spec In Lab Leilani Keller MD CHEMISTRY ORDERABLES Performing Organization Address City/[facility] Phon e Number [address] CERNER MILLENNIUM POCT Glucose (09/01/2013 7:26 AM EST) P athologist Signature POC Glucose 97 60 - 199 CERNER mg/dL MILLENNIUM Comment: Supplemental ranges: <110 mg/dL before meals <200 mg/dL all other times of the day Specimen Anatomical Collection Method Collection Time Receive d Time (Source) Location / / Volume Laterality Blood specimen 09/01/2013 7:26 AM 014 7:26 (specimen) EST AM EST Leilani Keller MD POINT OF CARE TEST ORDERABLE S Performing Organization Address City/[facility]/ZIP Code Phon e Number [address] CERNER MILLENNIUM POCT Glucose (09/01/2013 3:53 AM EST) P athologist Signature POC Glucose 93 60 - 199 CERNER mg/dL MILLENNIUM Comment: Supplemental ranges: <110 mg/dL before meals <200 mg/dL all other times of the day Specimen Anatomical Collection Method Collection Time Receive d Time (Source) Location / / Volume Laterality Blood specimen 09/01/2013 3:53 AM 014 3:53 (specimen) EST AM EST Leilani Keller MD POINT OF CARE TEST ORDERABLE S Performing Organization Address City/State/[place] [address] CERNER MILLENNIUM POCT Glucose (09/01/2013 12:28 AM EST) P athologist Signature POC Glucose 109 60 - 199 CERNER mg/dL MILLENNIUM Comment: Supplemental ranges: <110 mg/dL before meals <200 mg/dL all other times of the day Specimen Anatomical Collection Method Collection Time Receive d Time (Source) Location / / Volume Laterality Blood specimen 09/01/2013 12:28 4 (specimen) AM EST 12:28 AM EST Leilani Keller MD POINT OF CARE TEST ORDERABLE S Performing Organization Address City/[facility]/ZIP Code Phon e Number TIFFANI [address] CERNER MILLENNIUM POCT Glucose (08/31/2013 6:45 PM EST) P athologist Signature POC Glucose 161 60 - 199 CERNER mg/dL MILLENNIUM Comment: Supplemental ranges: <110 mg/dL before meals <200 mg/dL all other times of the day Specimen Anatomical Collection Method Collection Time Receive d Time (Source) Location / / Volume Laterality Blood specimen 08/31/2013 6:45 PM 014 6:45 (specimen) EST PM EST Leilani Keller MD POINT OF CARE TEST ORDERABLE S Performing Organization Address City/[facility]/ZIP Code [place] [address] CERNER MILLENNIUM POCT Glucose (08/31/2013 4:02 PM EST) P athologist Signature POC Glucose 141 60 - 199 CERNER mg/dL MILLENNIUM Comment: Supplemental ranges: <110 mg/dL before meals <200 mg/dL all other times of the day Specimen Anatomical Collection Method Collection Time Receive d Time (Source) Location / / Volume Laterality Blood specimen 08/31/2013 4:02 PM 014 4:02 (specimen) EST PM EST Leilani Keller MD POINT OF CARE TEST ORDERABLE S Performing Organization Address City/State/ZIP Code Phon e Number [address] CERNER MILLENNIUM POCT Glucose (08/31/2013 11:17 AM EST) P athologist Signature POC Glucose 109 60 - 199 CERNER mg/dL MILLENNIUM Comment: Supplemental ranges: <110 mg/dL before meals <200 mg/dL all other times of the day Specimen Anatomical Collection Method Collection Time Receive d Time (Source) Location / / Volume Laterality Blood specimen 08/31/2013 11:17 4 (specimen) AM EST 11:17 AM EST Leilani Keller MD POINT OF CARE TEST ORDERABLE S Performing Organization Address City/[facility]/ZIP Code Phon e Number [address] CERNER MILLENNIUM POCT Glucose (08/31/2013 7:16 AM EST) P athologist Signature POC Glucose 124 60 - 199 CERNER mg/dL MILLENNIUM Comment: Supplemental ranges: <110 mg/dL before meals <200 mg/dL all other times of the day Specimen Anatomical Collection Method Collection Time Receive d Time (Source) Location / / Volume Laterality Blood specimen 08/31/2013 7:16 AM 014 7:16 (specimen) EST AM EST Leilani Keller MD POINT OF CARE TEST ORDERABLE S Performing Organization Address City/State/ZIP Code Phon e Number [address] CERNER MILLENNIUM POCT Glucose (08/31/2013 3:17 AM EST) P athologist Signature POC Glucose 127 60 - 199 CERNER mg/dL MILLENNIUM Comment: Supplemental ranges: <110 mg/dL before meals <200 mg/dL all other times of the day Specimen Anatomical Collection Method Collection Time Receive d Time (Source) Location / / Volume Laterality Blood specimen 08/31/2013 3:17 AM 014 3:17 (specimen) EST AM EST Leilani Keller MD POINT OF CARE TEST ORDERABLE S Performing Organization Address City/State/ZIP [place] [address] CERNER MILLENNIUM (ABNORMAL) Differential, Automated (08/31/2013 3:13 AM EST) [facility] Method Time Signature Neutrophils % 95.5 (H) 34.0 - CERNER 71.0 % MILLENNIUM Neutr Abs (ANC) 9.57 (H) 1.50 - CERNER 6.30 MILLENNIUM x10(3)/mc L Lymphocytes % 1.7 (L) 19.0 - CERNER 53.0 % MILLENNIUM Lymphocytes Abs 0.2 (L) 1.0 - 3.6 CERNER x10(3)/mc MILLENNIUM L Monocytes % 2.6 (L) 4.0 - CERNER 13.0 % MILLENNIUM Monocyte Abs 0.3 0.2 - 1.0 CERNER x10(3)/mc MILLENNIUM L Eosinophils % 0.0 0.0 - 7.0 CERNER % MILLENNIUM Eosinophils Abs 0.0 0.0 - 0.5 CERNER x10(3)/mc MILLENNIUM L Basophils % 0.0 0.0 - 2.0 CERNER % MILLENNIUM Basophils [...] Location / / Volume Laterality Blood specimen 08/31/2013 3:13 AM 014 3:20 (specimen) EST AM EST Leilani Keller MD HEMATOLOGY ORDERABLES Performing Organization Address City/State/ZIP Code Phon e Number TIFFANI DEANRAFAEL[address] CERNER MILLENNIUM (ABNORMAL) CBC (with Diff) (08/31/2013 3:13 AM EST) athologist Signature WBC 10.0 4.0 - 10.0 CERNER x10(3)/mcL MILLENNIUM RBC 3.40 (L) 4.63 - CERNER 6.08 MILLENNIUM x10(6)/mcL Hemoglobin 10.1 (L) 13.7 - CERNER 17.5 gm/dL MILLENNIUM Hematocrit 30.2 (L) 40.0 - CERNER 51.0 % MILLENNIUM MCV 88.8 79.0 - CERNER 92.0 fL MILLENNIUM MCH 29.7 25.6 - CERNER 32.2 pg MILLENNIUM MCHC 33.4 32.0 - CERNER 36.5 gm/dL MILLENNIUM Platelets 135 (L) 145 - 370 CERNER x10(3)/mcL MILLENNIUM RDWSD 41.0 35.0 - CERNER 46.0 fL MILLENNIUM RDWCV 12.7 10.9 - CERNER 14.4 % MILLENNIUM MPV 11.0 9.0 - 12.0 CERNER fL MILLENNIUM Specimen Anatomical Collection Method Collection Time Receive d Time (Source) Location / / Volume Laterality Blood specimen 08/31/2013 3:13 AM 014 3:20 (specimen) EST AM EST Resulting Agency Comment Spec In Lab Leilani Keller MD HEMATOLOGY ORDERABLES Performing Organization Address City/State/[place] [address] CERNER MILLENNIUM (ABNORMAL) Basic Metabolic Panel (non-fasting) (08/31/2013 3:13 AM EST) athologist Signature Glucose Lvl 121 60 - 199 CERNER mg/dL MILLENNIUM Comment: Diabetes: >=200 mg/dL plus symp toms BUN 20 10 - 20 mg/dL CERNER MILLENNIU M Creatinine 0.70 (L) 0.80 - 1.50 mg/dL CERNER MILL ENNIUM Comment: Please note that the pediatric reference intervals supplied above were not validated at [facility]. Results from pediatri c patients should be interpreted in conjunction to the patient's age, height and muscle mass. Sodium 142 135 - 145 mmol/L CERNER LALA NIUM Potassium 3.9 3.5 - 5.0 mmol/L CERNER LALA NIUM [...] - 15 mmol/L CERNER MILLENNIU M Calcium 8.1 (L) 8.5 - 10.5 mg/dL CERNER LALA NIUM [...] Location / / Volume Laterality Blood specimen 08/31/2013 3:13 AM 014 3:20 (specimen) EST AM EST Resulting Agency Comment Spec In Lab Leilani Keller MD CHEMISTRY ORDERABLES Performing Organization Address City/State/ZIP [place] [address] CERNER MILLENNIUM Phosphorus (08/31/2013 3:13 AM EST) P athologist Signature Phosphorus 3.2 2.5 - 4.5 CERNER mg/dL MILLENNIUM Specimen Anatomical Collection Method Collection Time Receive d Time (Source) Location / / Volume Laterality Blood specimen 08/31/2013 3:13 AM 014 3:20 (specimen) EST AM EST Resulting Agency Comment Spec In Lab Leilani Keller MD CHEMISTRY ORDERABLES Performing Organization Address City/State/ZIP Code Phon e Number [address] CERNER MILLENNIUM Lipase (08/31/2013 3:13 AM EST) P athologist Signature Lipase 53 0 - 60 CERNER unit/L MILLENNIUM Specimen Anatomical Collection Method Collection Time Receive d Time (Source) Location / / Volume Laterality Blood specimen 08/31/2013 3:13 AM 014 3:20 (specimen) EST AM EST Resulting Agency Comment Spec In Lab Leilani Keller MD CHEMISTRY ORDERABLES Performing Organization Address City/[facility]/ZIP Code Phon e Number [address] [facility] MILLENNIUM Amylase (08/31/2013 3:13 AM EST) P athologist Signature Amylase 60 28 - 100 CERNER unit/L MILLENNIUM Specimen Anatomical Collection Method Collection Time Receive d Time (Source) Location / / Volume Laterality Blood specimen 08/31/2013 3:13 AM 014 3:20 (specimen) EST AM EST Resulting Agency Comment Spec In Lab Leilani Keller MD CHEMISTRY ORDERABLES Performing Organization Address City/[facility]/ZIP Code Phon e Number [address] CERNER MILLENNIUM Magnesium (08/31/2013 3:13 AM EST) P athologist Signature Magnesium 0.88 0.69 - 1.07 CERNER mmol/L MILLENNIUM Specimen Anatomical Collection Method Collection Time Receive d Time (Source) Location / / Volume Laterality Blood specimen 08/31/2013 3:13 AM 014 3:20 (specimen) EST AM EST Resulting Agency Comment Spec In Lab Leilani Keller MD CHEMISTRY ORDERABLES Performing Organization Address City/[facility]/ZIP Code Phon e Number [address] [facility] MILLENNIUM POCT Glucose (08/30/2013 11:16 PM EST) P athologist Signature POC Glucose 132 60 - 199 CERNER mg/dL MILLENNIUM Comment: Supplemental ranges: <110 mg/dL before meals <200 mg/dL all other times of the day Specimen Anatomical Collection Method Collection Time Receive d Time (Source) Location / / Volume Laterality Blood specimen 08/30/2013 11:16 3 (specimen) PM EST 11:16 PM EST Leilani Keller MD POINT OF CARE TEST ORDERABLE S Performing Organization Address City/[facility]/ZIP Code Phon e Number [address] CERNER MILLENNIUM POCT Glucose (08/30/2013 8:02 PM EST) P athologist Signature POC Glucose 133 60 - 199 CERNER mg/dL ENNIUM Comment: Supplemental ranges: <110 mg/dL before meals <200 mg/dL all other times of the day Specimen Anatomical Collection Method Collection Time Receive d Time (Source) Location / / Volume Laterality Blood specimen 08/30/2013 8:02 PM 013 8:02 (specimen) EST PM EST Leilani Keller MD POINT OF CARE TEST ORDERABLE S Performing Organization Address City/[facility]/ZIP Code Phon e Number [address] CERNER MILLENNIUM POCT Glucose (08/30/2013 4:29 PM EST) P athologist Signature POC Glucose 152 60 - 199 [facility]ER mg/dL [facility] Comment: Supplemental ranges: <110 mg/dL before meals <200 mg/dL all other times of the day Specimen Anatomical Collection Method Collection Time Receive d Time (Source) Location / / Volume Laterality Blood specimen 08/30/2013 4:29 PM 013 4:29 (specimen) EST PM EST Leilani Keller MD POINT OF CARE TEST ORDERABLE S Performing Organization Address City/[facility]/ZIP Code Phon e Number [address] CERNER MILLENNIUM XR VAS venous access (PICC placement) (08/30/2013 3:50 PM EST) Anatomical Region Laterality Modality N/A Radiographic Imaging Specimen (Source) Anatomical Collection Method Collection Time Re ceived Time Location / / Volume Laterality 08/30/2013 3:50 PM EST Narrative 08/30/2013 3:53 PM EST Examination PLACEMENT PICC LINE (IV TEAM) Over 5 yrs /XCARM Clinical History S/P PANCREATIC TRANSPLANT/POOR VASCULAR ACCESS PICC LINE FOR ACCESS/MEDS Technique Single spot view of the center of chest obtained with C-arm on 08/30/2013 at 1545 hours. Comparison 08/28/2013 chest radiograph at 1115 hour s. Findings New right upper extremity PICC tip posit ion compatible with the mid SVC. ??Left IJ line tip position not appreciably melony nged. Procedure Note Adalgisa Lewis MD - 08/30/2013Formatt ing of this note might be different from the original. Examination PLACEMENT PICC LINE (IV TEAM) Over 5 yrs /XCARM Clinical History S/P PANCREATIC TRANSPLANT/POOR VASCULAR ACCESS PICC LINE FOR ACCESS/MEDS Technique Single spot view of the center of chest obtained with C-arm on 08/30/2013 at 1545 hours. Comparison 08/28/2013 chest radiograph at 1115 hour s. Findings New right upper extremity PICC tip posit ion compatible with the mid SVC. Left IJ line tip position not appreciably melony nged. Leilani Keller MD IMG FLUORO ORDERABLES POCT Glucose (08/30/2013 12:00 PM EST) athologist Signature POC Glucose 132 60 - 199 CERNER mg/dL MILLENNIUM Comment: Supplemental ranges: <110 mg/dL before meals <200 mg/dL all other times of the day Specimen Anatomical Collection Method Collection Time Receive d Time (Source) Location / / Volume Laterality Blood specimen 08/30/2013 12:00 3 (specimen) PM EST 12:00 PM EST Leilani Keller MD POINT OF CARE TEST ORDERABLE S Performing Organization Address City/State/ZIP [place] [address] CERNER MILLENNIUM POCT Glucose (08/30/2013 11:22 AM EST) athologist Signature POC Glucose 111 60 - 199 CERNER mg/dL MILLENNIUM Comment: Supplemental ranges: <110 mg/dL before meals <200 mg/dL all other times of the day Specimen Anatomical Collection Method Collection Time Receive d Time (Source) Location / / Volume Laterality Blood specimen 08/30/2013 11:22 3 (specimen) AM EST 11:22 AM EST Leilani Keller MD POINT OF CARE TEST ORDERABLE S Performing Organization Address City/State/ZIP Code Phon e Number [address] CERNER MILLENNIUM POCT Glucose (08/30/2013 10:06 AM EST) athologist Signature POC Glucose 145 60 - 199 CERNER mg/dL MILLENNIUM Comment: Supplemental ranges: <110 mg/dL before meals <200 mg/dL all other times of the day Specimen Anatomical Collection Method Collection Time Receive d Time (Source) Location / / Volume Laterality Blood specimen 08/30/2013 10:06 3 (specimen) AM EST 10:06 AM EST Leilani Keller MD POINT OF CARE TEST ORDERMAN S Performing Organization Address City/[facility]/ZIP Code Phon e Number [address] CERNER MILLENNIUM POCT Glucose (08/30/2013 9:17 AM EST) athologist Signature POC Glucose 129 60 - 199 CERNER mg/dL MILLENNIUM Comment: Supplemental ranges: <110 mg/dL before meals <200 mg/dL all other times of the day Specimen Anatomical Collection Method Collection Time Receive d Time (Source) Location / / Volume Laterality Blood specimen 08/30/2013 9:17 AM 013 9:17 (specimen) EST AM EST Leilani Keller MD POINT OF CARE TEST ORDERABLE S Performing Organization Address City/State/[place] [address] CERNER MILLENNIUM POCT Glucose (08/30/2013 8:26 AM EST) P athologist Signature POC Glucose 124 60 - 199 CERNER mg/dL MILLENNIUM Comment: Supplemental ranges: <110 mg/dL before meals <200 mg/dL all other times of the day Specimen Anatomical Collection Method Collection Time Receive d Time (Source) Location / / Volume Laterality Blood specimen 08/30/2013 8:26 AM 013 8:26 (specimen) EST AM EST Leilani Keller MD POINT OF CARE TEST ORDERABLE S Performing Organization Address City/State/ZIP Code Phon e Number [address] CERNER MILLENNIUM POCT Glucose (08/30/2013 7:06 AM EST) P athologist Signature POC Glucose 138 60 - 199 CERNER mg/dL MILLENNIUM Comment: Supplemental ranges: <110 mg/dL before meals <200 mg/dL all other times of the day Specimen Anatomical Collection Method Collection Time Receive d Time (Source) Location / / Volume Laterality Blood specimen 08/30/2013 7:06 AM 013 7:06 (specimen) EST AM EST Leilani Keller MD POINT OF CARE TEST ORDERABLE S Performing Organization Address City/State/ZIP Code Phon e Number [address] CERNER MILLENNIUM (ABNORMAL) Differential, Automated (08/30/2013 6:35 AM EST) Patholo gist Method Time Signature Neutrophils % 97.2 (H) 34.0 - CERNER 71.0 % MILLENNIUM Neutr Abs (ANC) 12.99 (H) 1.50 - CERNER 6.30 MILLENNIUM x10(3)/mc L Lymphocytes % 1.0 (L) 19.0 - CERNER 53.0 % MILLENNIUM Lymphocytes Abs 0.1 (L) 1.0 - 3.6 CERNER x10(3)/mc MILLENNIUM L Monocytes % 1.7 (L) 4.0 - CERNER 13.0 % MILLENNIUM Monocyte Abs 0.2 0.2 - 1.0 CERNER x10(3)/mc MILLENNIUM L Eosinophils % 0.0 0.0 - 7.0 CERNER % MILLENNIUM Eosinophils Abs 0.0 0.0 - 0.5 CERNER x10(3)/mc MILLENNIUM L Basophils % 0.0 0.0 - 2.0 CERNER % MILLENNIUM Basophils Abs 0.0 0.0 - 0.2 CERNER x10(3)/mc MILLENNIUM L Immature Gran % 0.10 0.00 - CERNER 0.66 % MILLENNIUM Comment: Immature granulocytes(IG's)percentage an d absolute count will include metamyelocytes, myelocytes, and promyelo cytes. Blood smears from CBCs yielding IG's will be scanned manually for concor dandylon. If this scan disagrees with the automated IG or if promyelocytes are not ed, a manual differential will be performed. Kym Gran Abs 0.02 0.00 - 0.05 x10(3)/mcL CER NER MILLENNIUM Specimen Anatomical Collection Method Collection Time Receive d Time (Source) Location / / Volume Laterality Blood specimen 08/30/2013 6:35 AM 013 6:38 (specimen) EST AM EST Leilani Keller MD HEMATOLOGY ORDERABLES Performing Organization Address City/State/[place] [address] CERNER MILLENNIUM (ABNORMAL) Basic Metabolic Panel (non-fasting) (08/30/2013 6:35 AM EST) athologist Signature Glucose Lvl 132 60 - 199 CERNER mg/dL MILLENNIUM Comment: Diabetes: >=200 mg/dL plus symp toms BUN 17 10 - 20 mg/dL CERNER MILLENNIU M Creatinine 0.69 (L) 0.80 - 1.50 mg/dL CERNER MILL ENNIUM Comment: Please note that the pediatric reference intervals supplied above were not validated at [facility]. Results from pediatri c patients should be interpreted in conjunction to the patient's age, height and muscle mass. Sodium 141 135 - 145 mmol/L CERNER LALA NIUM Potassium 3.9 3.5 - 5.0 mmol/L CERNER LALA NIUM Comment: Please note: ??Patients with WBC >100,00 0 may have falsely elevated Potassium levels. ??For accurate Potassium quantif ication in these patients send serum separator tube (gold top) for subsequent determinations. ??Contact the Clinical Chemistry Laboratory if there are any qu estions. Chloride 107 98 - 107 mmol/L CERNER MILLENN IUM CO2 24 22 - 31 mmol/L CERNER MILLENNI UM Anion Gap 10 5 - 15 mmol/L CERNER MILLENNIU M Calcium 8.2 (L) 8.5 - 10.5 mg/dL CERNER LALA NIUM [...] Location / / Volume Laterality Blood specimen 08/30/2013 6:35 AM 013 6:39 (specimen) EST AM EST Resulting Agency Comment Spec In Lab Leilani Keller MD CHEMISTRY ORDERABLES Performing Organization Address City/State/[place] [address] CERNER MILLENNIUM (ABNORMAL) CBC (with Diff) (08/30/2013 6:35 AM EST) P athologist Signature WBC 13.4 (H) 4.0 - 10.0 CERNER x10(3)/mcL MILLENNIUM RBC 3.60 (L) 4.63 - CERNER 6.08 MILLENNIUM x10(6)/mcL Hemoglobin 11.1 (L) 13.7 - CERNER 17.5 gm/dL MILLENNIUM Hematocrit 32.4 (L) 40.0 - CERNER 51.0 % MILLENNIUM MCV 90.0 79.0 - CERNER 92.0 fL MILLENNIUM MCH 30.8 25.6 - CERNER 32.2 pg MILLENNIUM MCHC 34.3 32.0 - CERNER 36.5 gm/dL MILLENNIUM Platelets 138 (L) 145 - 370 CERNER x10(3)/mcL MILLENNIUM RDWSD 41.8 35.0 - CERNER 46.0 fL MILLENNIUM RDWCV 12.8 10.9 - CERNER 14.4 % MILLENNIUM MPV 10.9 9.0 - 12.0 CERNER fL [facility] Specimen Anatomical Collection Method Collection Time Receive d Time (Source) Location / / Volume Laterality Blood specimen 08/30/2013 6:35 AM 013 6:38 (specimen) EST AM EST Resulting Agency Comment Spec In Lab Leilani Keller MD HEMATOLOGY ORDERABLES Performing Organization Address City/State/ZIP Code Phon e Number [address] CERNER MILLENNIUM POCT Glucose (08/30/2013 6:06 AM EST) athologist Signature POC Glucose 130 60 - 199 CERNER mg/dL [facility] Comment: Supplemental ranges: <110 mg/dL before meals <200 mg/dL all other times of the day Specimen Anatomical Collection Method Collection Time Receive d Time (Source) Location / / Volume Laterality Blood specimen 08/30/2013 6:06 AM 013 6:06 (specimen) EST AM EST Leilani Keller MD POINT OF CARE TEST ORDERABLE S Performing Organization Address City/[facility]/ZIP Code Phon e Number [address] CERNER MILLENNIUM POCT Glucose (08/30/2013 5:03 AM EST) athologist Signature POC Glucose 130 60 - 199 [facility] Comment: Supplemental ranges: <110 mg/dL before meals <200 mg/dL all other times of the day Specimen Anatomical Collection Method Collection Time Receive d Time (Source) Location / / Volume Laterality Blood specimen 08/30/2013 5:03 AM 013 5:03 (specimen) EST AM EST Leilani Keller MD POINT OF CARE TEST ORDERABLE S Performing Organization Address City/[facility]/ZIP Code Phon e Number [address] CERNER MILLENNIUM POCT Glucose (08/30/2013 4:14 AM EST) athologist Signature POC Glucose 135 60 - 199 CERNER mg/dL MILLENNIUM Comment: Supplemental ranges: <110 mg/dL before meals <200 mg/dL all other times of the day Specimen Anatomical Collection Method Collection Time Receive d Time (Source) Location / / Volume Laterality Blood specimen 08/30/2013 4:14 AM 013 4:14 (specimen) EST AM EST Leilani Keller MD POINT OF CARE TEST ORDERABLE S Performing Organization Address City/[facility]/ZIP Code Phon e Number [address] CERNER MILLENNIUM POCT Glucose (08/30/2013 3:02 AM EST) athologist Signature POC Glucose 140 60 - 199 CERNER mg/dL MILLENNIUM Comment: Supplemental ranges: <110 mg/dL before meals <200 mg/dL all other times of the day Specimen Anatomical Collection Method Collection Time Receive d Time (Source) Location / / Volume Laterality Blood specimen 08/30/2013 3:02 AM 013 3:02 (specimen) EST AM EST Leilani Keller MD POINT OF CARE TEST ORDERABLE S Performing Organization Address City/[facility]/ZIP Code Phon e Number [address] CERNER MILLENNIUM POCT Glucose (08/30/2013 2:13 AM EST) athologist Signature POC Glucose 135 60 - 199 CERNER mg/dL MILLENNIUM Comment: Supplemental ranges: <110 mg/dL before meals <200 mg/dL all other times of the day Specimen Anatomical Collection Method Collection Time Receive d Time (Source) Location / / Volume Laterality Blood specimen 08/30/2013 2:13 AM 013 2:13 (specimen) EST AM EST Leilani Keller MD POINT OF CARE TEST ORDERABLE S Performing Organization Address City/[facility]/ZIP Code Phon e Number [address] CERNER MILLENNIUM POCT Glucose (08/30/2013 1:18 AM EST) athologist Signature POC Glucose 132 60 - 199 CERNER mg/dL MILLENNIUM Comment: Supplemental ranges: <110 mg/dL before meals <200 mg/dL all other times of the day Specimen Anatomical Collection Method Collection Time Receive d Time (Source) Location / / Volume Laterality Blood specimen 08/30/2013 1:18 AM 013 1:18 (specimen) EST AM EST Leilani Keller MD POINT OF CARE TEST ORDERABLE S Performing Organization Address City/State/[place] [address] CERNER MILLENNIUM (ABNORMAL) Differential, Automated (08/30/2013 12:45 AM EST) [facility] Method Time Signature Neutrophils % 96.9 (H) 34.0 - CERNER 71.0 % MILLENNIUM Neutr Abs (ANC) 12.49 (H) 1.50 - CERNER 6.30 MILLENNIUM x10(3)/mc L Lymphocytes % 1.0 (L) 19.0 - CERNER 53.0 % MILLENNIUM Lymphocytes Abs 0.1 (L) 1.0 - 3.6 CERNER x10(3)/mc MILLENNIUM L Monocytes % 1.9 (L) 4.0 - CERNER 13.0 % MILLENNIUM Monocyte Abs 0.2 0.2 - 1.0 CERNER x10(3)/mc MILLENNIUM L Eosinophils % 0.0 0.0 - 7.0 CERNER % MILLENNIUM Eosinophils Abs 0.0 0.0 - 0.5 CERNER x10(3)/mc MILLENNIUM L Basophils % 0.0 0.0 - 2.0 CERNER % MILLENNIUM Basophils [...] Location / / Volume Laterality Blood specimen 08/30/2013 12:45 3 1:00 (specimen) AM EST AM EST Leilani Keller MD HEMATOLOGY ORDERABLES Performing Organization Address City/State/[place] [address] CERNER MILLENNIUM Glucose, random (08/30/2013 12:45 AM EST) athologist Signature Glucose Lvl 139 60 - 199 CERNER mg/dL MILLENNIUM Comment: Diabetes: >=200 mg/dL plus symp toms Specimen Anatomical Collection Method Collection Time Receive d Time (Source) Location / / Volume Laterality Blood specimen 08/30/2013 12:45 3 1:00 (specimen) AM EST AM EST Resulting Agency Comment Spec In Lab Leilani Keller MD CHEMISTRY ORDERABLES Performing Organization Address City/[facility]/ZIP Code Phon e Number [address] CERNER MILLENNIUM (ABNORMAL) Creatinine (08/30/2013 12:45 AM EST) athologist Signature Creatinine 0.68 (L) 0.80 - CERNER 1.50 mg/dL MILLENNIUM Comment: Please note that the pediatric reference intervals supplied above were not validated at [facility]. Results from pediatri c patients should be interpreted in conjunction to the patient's age, height and muscle mass. Estimated GFR >60 >=60 CERNER MILLENNIU M [...] Location / / Volume Laterality Blood specimen 08/30/2013 12:45 3 1:00 (specimen) AM EST AM EST Resulting Agency Comment Spec In Lab Leilani Keller MD CHEMISTRY ORDERABLES Performing Organization Address City/[facility]/[place] [address] CERNER MILLENNIUM BUN (08/30/2013 12:45 AM EST) P athologist Signature BUN 18 10 - 20 CERNER mg/dL MILLENNIUM Specimen Anatomical Collection Method Collection Time Receive d Time (Source) Location / / Volume Laterality Blood specimen 08/30/2013 12:45 3 1:00 (specimen) AM EST AM EST Resulting Agency Comment Spec In Lab Leilani Keller MD CHEMISTRY ORDERABLES Performing Organization Address City/[facility] [place] [address] CERNER MILLENNIUM Electrolytes panel (08/30/2013 12:45 AM EST) P athologist Signature Sodium 141 135 - 145 CERNER mmol/L MILLENNIUM Potassium 4.0 3.5 - 5.0 CERNER mmol/L MILLENNIUM Comment: Please note: ??Patients with WBC >100,00 0 may have falsely elevated Potassium levels. ??For accurate Potassium quantif ication in these patients send serum separator tube (gold top) for subsequent determinations. ??Contact the Clinical Chemistry Laboratory if there are any qu estions. Chloride 107 98 - 107 mmol/L CERNER MILLENN IUM CO2 25 22 - 31 mmol/L CERNER MILLENNI UM Anion Gap 9 5 - 15 mmol/L CERNER MILLENNIU M Specimen Anatomical Collection Method Collection Time Receive d Time (Source) Location / / Volume Laterality Blood specimen 08/30/2013 12:45 3 1:00 (specimen) AM EST AM EST Resulting Agency Comment Spec In Lab Leilani Keller MD CHEMISTRY ORDERABLES Performing Organization Address City/[facility]/[place] [address] CERNER MILLENNIUM (ABNORMAL) CBC (with Diff) (08/30/2013 12:45 AM EST) P athologist Signature WBC 12.9 (H) 4.0 - 10.0 CERNER x10(3)/mcL MILLENNIUM RBC 3.53 (L) 4.63 - CERNER 6.08 MILLENNIUM x10(6)/mcL Hemoglobin 10.9 (L) 13.7 - CERNER 17.5 gm/dL MILLENNIUM Hematocrit 31.7 (L) 40.0 - CERNER 51.0 % MILLENNIUM MCV 89.8 79.0 - CERNER 92.0 fL MILLENNIUM MCH 30.9 25.6 - CERNER 32.2 pg MILLENNIUM MCHC 34.4 32.0 - CERNER 36.5 gm/dL MILLENNIUM Platelets 132 (L) 145 - 370 CERNER x10(3)/mcL MILLENNIUM RDWSD 42.1 35.0 - CERNER 46.0 fL MILLENNIUM RDWCV 12.9 10.9 - CERNER 14.4 % MILLENNIUM MPV 11.1 9.0 - 12.0 CERNER fL MILLENNIUM Specimen Anatomical Collection Method Collection Time Receive d Time (Source) Location / / Volume Laterality Blood specimen 08/30/2013 12:45 3 1:00 (specimen) AM EST AM EST Resulting Agency Comment Spec In Lab Leilani Keller MD HEMATOLOGY ORDERABLES Performing Organization Address City/[facility]/ZIP Code Phon e Number [address] CERNER MILLENNIUM Phosphorus (08/30/2013 12:45 AM EST) P athologist Signature Phosphorus 3.0 2.5 - 4.5 CERNER mg/dL MILLENNIUM Specimen Anatomical Collection Method Collection Time Receive d Time (Source) Location / / Volume Laterality Blood specimen 08/30/2013 12:45 3 1:00 (specimen) AM EST AM EST Resulting Agency Comment Spec In Lab Leilani Keller MD CHEMISTRY ORDERABLES Performing Organization Address City/[facility]/ZIP Code Phon e Number [address] CERNER MILLENNIUM Lipase (08/30/2013 12:45 AM EST) athologist Signature Lipase 38 0 - 60 CERNER unit/L MILLENNIUM Specimen Anatomical Collection Method Collection Time Receive d Time (Source) Location / / Volume Laterality Blood specimen 08/30/2013 12:45 3 1:00 (specimen) AM EST AM EST Resulting Agency Comment Spec In Lab Leilani Keller MD CHEMISTRY ORDERABLES Performing Organization Address City/State/ZIP Code Phon e Number [address] CERNER MILLENNIUM Amylase (08/30/2013 12:45 AM EST) athologist Signature Amylase 46 28 - 100 CERNER unit/L MILLENNIUM Specimen Anatomical Collection Method Collection Time Receive d Time (Source) Location / / Volume Laterality Blood specimen 08/30/2013 12:45 3 1:00 (specimen) AM EST AM EST Resulting Agency Comment Spec In Lab Leilani Keller MD CHEMISTRY ORDERABLES Performing Organization Address City/State/ZIP Code Phon e Number [address] CERNER MILLENNIUM Magnesium (08/30/2013 12:45 AM EST) athologist [facility] Magnesium 0.80 0.69 - 1.07 CERNER mmol/L MILLENNIUM Specimen Anatomical Collection Method Collection Time Receive d Time (Source) Location / / Volume Laterality Blood specimen 08/30/2013 12:45 3 1:00 (specimen) AM EST AM EST Resulting Agency Comment Spec In Lab Leilani Keller MD CHEMISTRY ORDERABLES Performing Organization Address City/[facility]/ZIP [facility] Phon e Number [address] CERNER MILLENNIUM POCT Glucose (08/30/2013 12:08 AM EST) athologist Signature POC Glucose 140 60 - 199 [facility]ER mg/dL [facility] Comment: Supplemental ranges: <110 mg/dL before meals <200 mg/dL all other times of the day Specimen Anatomical Collection Method Collection Time Receive d Time (Source) Location / / Volume Laterality Blood specimen 08/30/2013 12:08 3 (specimen) AM EST 12:08 AM EST Leilani Keller MD POINT OF CARE TEST ORDERABLE S Performing Organization Address City/[facility]/ZIP Code Phon e Number [address] CERNER MILLENNIUM POCT Glucose (08/29/2013 10:53 PM EST) P athologist Signature POC Glucose 145 60 - 199 CERNER mg/dL MILLENNIUM Comment: Supplemental ranges: <110 mg/dL before meals <200 mg/dL all other times of the day Specimen Anatomical Collection Method Collection Time Receive d Time (Source) Location / / Volume Laterality Blood specimen 08/29/2013 10:53 3 (specimen) PM EST 10:53 PM EST Leilani Keller MD POINT OF CARE TEST ORDERABLE S Performing Organization Address City/[facility]/[place] [address] CERNER MILLENNIUM POCT Glucose (08/29/2013 9:57 PM EST) P athologist Signature POC Glucose 153 60 - 199 CERNER mg/dL MILLENNIUM Comment: Supplemental ranges: <110 mg/dL before meals <200 mg/dL all other times of the day Specimen Anatomical Collection Method Collection Time Receive d Time (Source) Location / / Volume Laterality Blood specimen 08/29/2013 9:57 PM 013 9:57 (specimen) EST PM EST Leilani Keller MD POINT OF CARE TEST ORDERABLE S Performing Organization Address City/State/[place] [address] CERNER MILLENNIUM POCT Glucose (08/29/2013 9:19 PM EST) P athologist Signature POC Glucose 136 60 - 199 CERNER mg/dL MILLENNIUM Comment: Supplemental ranges: <110 mg/dL before meals <200 mg/dL all other times of the day Specimen Anatomical Collection Method Collection Time Receive d Time (Source) Location / / Volume Laterality Blood specimen 08/29/2013 9:19 PM 12/30/2 013 9:19 (specimen) EST PM EST Leilani Keller MD POINT OF CARE TEST ORDERABLE S Performing Organization Address City/State/ZIP Code Phon e Number [address] CERNER MILLENNIUM POCT Glucose (08/29/2013 8:08 PM EST) P athologist Signature POC Glucose 149 60 - 199 CERNER mg/dL MILLENNIUM Comment: Supplemental ranges: <110 mg/dL before meals <200 mg/dL all other times of the day Specimen Anatomical Collection Method Collection Time Receive d Time (Source) Location / / Volume Laterality Blood specimen 08/29/2013 8:08 PM 013 8:08 (specimen) EST PM EST Leilani Keller MD POINT OF CARE TEST ORDERABLE S Performing Organization Address City/State/[place] [address] CERNER MILLENNIUM (ABNORMAL) Differential, Automated (08/29/2013 6:35 PM EST) Patholo gist Method Time Signature Neutrophils % 98.5 (H) 34.0 - CERNER 71.0 % MILLENNIUM Neutr Abs (ANC) 13.99 (H) 1.50 - CERNER 6.30 MILLENNIUM x10(3)/mc L Lymphocytes % 0.6 (L) 19.0 - CERNER 53.0 % MILLENNIUM Lymphocytes Abs 0.1 (L) 1.0 - 3.6 CERNER x10(3)/mc MILLENNIUM L Monocytes % 0.7 (L) 4.0 - CERNER 13.0 % MILLENNIUM Monocyte Abs 0.1 (L) 0.2 - 1.0 CERNER x10(3)/mc MILLENNIUM L Eosinophils % 0.0 0.0 - 7.0 CERNER % MILLENNIUM Eosinophils Abs 0.0 0.0 - 0.5 CERNER x10(3)/mc MILLENNIUM L Basophils % 0.0 0.0 - 2.0 CERNER % MILLENNIUM Basophils Abs 0.0 0.0 - 0.2 CERNER x10(3)/mc MILLENNIUM L Immature Gran % 0.20 0.00 - CERNER 0.66 % MILLENNIUM Comment: Immature granulocytes(IG's)percentage an d absolute count will include metamyelocytes, myelocytes, and promyelo cytes. Blood smears from CBCs yielding IG's will be scanned manually for concjossy dandylon. If this scan disagrees with the automated IG or if promyelocytes are not ed, a manual differential will be performed. Kym Gran Abs 0.03 0.00 - 0.05 x10(3)/mcL CER NER MILLENNIUM Specimen Anatomical Collection Method Collection Time Receive d Time (Source) Location / / Volume Laterality Blood specimen 08/29/2013 6:35 PM 013 6:45 (specimen) EST PM EST Leilani Keller MD HEMATOLOGY ORDERABLES Performing Organization Address City/State/ZIP Code Phon e Number [place] [id number] CERNER MILLENNIUM (ABNORMAL) Basic Metabolic Panel (non-fasting) (08/29/2013 6:35 PM EST) athologist Signature Glucose Lvl 145 60 - 199 CERNER mg/dL MILLENNIUM Comment: Diabetes: >=200 mg/dL plus symp toms BUN 18 10 - 20 mg/dL CERNER MILLENNIU M Creatinine 0.77 (L) 0.80 - 1.50 mg/dL CERNER MILL ENNIUM Comment: Please note that the pediatric reference intervals supplied above were not validated at [facility]. Results from pediatri c patients should be interpreted in conjunction to the patient's age, height and muscle mass. Sodium 140 135 - 145 mmol/L CERNER LALA NIUM Potassium 4.0 3.5 - 5.0 mmol/L CERNER LALA NIUM Comment: Please note: ??Patients with WBC >100,00 0 may have falsely elevated Potassium levels. ??For accurate Potassium quantif ication in these patients send serum separator tube (gold top) for subsequent determinations. ??Contact the Clinical Chemistry Laboratory if there are any qu estions. Chloride 107 98 - 107 mmol/L CERNER MILLENN IUM CO2 24 22 - 31 mmol/L CERNER MILLENNI UM Anion Gap 9 5 - 15 mmol/L CERNER MILLENNIU M Calcium 8.2 (L) 8.5 - 10.5 mg/dL FARNAZ REEVES NIUM Estimated GFR >60 >=60 FARNAZ Barrera Comment: This estimated GFR (eGFR) value was [...] Location / / Volume Laterality Blood specimen 08/29/2013 6:35 PM 013 6:45 (specimen) EST PM EST Resulting Agency Comment Spec In Lab Leilani Keller MD CHEMISTRY ORDERABLES Performing Organization Address City/State/ZIP Code Phon e Number [place] [id number] FARNAZ HERBERTIUM (ABNORMAL) CBC (with Diff) (08/29/2013 6:35 PM EST) P athologist Signature WBC 14.2 (H) 4.0 - 10.0 CERNER x10(3)/mcL MILLENNIUM RBC 3.74 (L) 4.63 - CERNER 6.08 MILLENNIUM x10(6)/mcL Hemoglobin 11.7 (L) 13.7 - CERNER 17.5 gm/dL MILLENNIUM Hematocrit 33.8 (L) 40.0 - CERNER 51.0 % MILLENNIUM MCV 90.4 79.0 - CERNER 92.0 fL MILLENNIUM MCH 31.3 25.6 - CERNER 32.2 pg MILLENNIUM MCHC 34.6 32.0 - CERNER 36.5 gm/dL MILLENNIUM Platelets 150 145 - 370 CERNER x10(3)/mcL MILLENNIUM RDWSD 42.5 35.0 - CERNER 46.0 fL MILLENNIUM RDWCV 12.9 10.9 - CERNER 14.4 % MILLENNIUM MPV 11.4 9.0 - 12.0 CERNER fL MILLENNIUM Specimen Anatomical Collection Method Collection Time Receive d Time (Source) Location / / Volume Laterality Blood specimen 08/29/2013 6:35 PM 013 6:45 (specimen) EST PM EST Resulting Agency Comment Spec In Lab Leilani Keller MD HEMATOLOGY ORDERABLES Performing Organization Address City/[facility]/ZIP Code Phon e Number [address] CERNER MILLENNIUM POCT Glucose (08/29/2013 6:34 PM EST) athologist Signature POC Glucose 146 60 - 199 CERNER mg/dL ENNIUM Comment: Supplemental ranges: <110 mg/dL before meals <200 mg/dL all other times of the day Specimen Anatomical Collection Method Collection Time Receive d Time (Source) Location / / Volume Laterality Blood specimen 08/29/2013 6:34 PM 013 6:34 (specimen) EST PM EST Leilani Keller MD POINT OF CARE TEST ORDERABLE S Performing Organization Address City/[facility]/ZIP Code Phon e Number [address] CERNER MILLENNIUM POCT Glucose (08/29/2013 5:25 PM EST) athologist Signature POC Glucose 141 60 - 199 CERNER mg/dL ENNIUM Comment: Supplemental ranges: <110 mg/dL before meals <200 mg/dL all other times of the day Specimen Anatomical Collection Method Collection Time Receive d Time (Source) Location / / Volume Laterality Blood specimen 08/29/2013 5:25 PM 013 5:25 (specimen) EST PM EST Leilani Keller MD POINT OF CARE TEST ORDERABLE S Performing Organization Address City/[facility]/ZIP Code Phon e Number [address] CERNER MILLENNIUM POCT Glucose (08/29/2013 3:52 PM EST) athologist Signature POC Glucose 150 60 - 199 CERNER mg/dL ENNIUM Comment: Supplemental ranges: <110 mg/dL before meals <200 mg/dL all other times of the day Specimen Anatomical Collection Method Collection Time Receive d Time (Source) Location / / Volume Laterality Blood specimen 08/29/2013 3:52 PM 013 3:52 (specimen) EST PM EST Leilani Keller MD POINT OF CARE TEST ORDERABLE S Performing Organization Address City/[facility]/ZIP Code Phon e Number [address] CERNER MILLENNIUM POCT Glucose (08/29/2013 3:16 PM EST) athologist Signature POC Glucose 173 60 - 199 CERNER mg/dL MILLENNIUM Comment: Supplemental ranges: <110 mg/dL before meals <200 mg/dL all other times of the day Specimen Anatomical Collection Method Collection Time Receive d Time (Source) Location / / Volume Laterality Blood specimen 08/29/2013 3:16 PM 013 3:16 (specimen) EST PM EST Leilani Keller MD POINT OF CARE TEST ORDERABLE S Performing Organization Address City/[facility]/ZIP Code Phon e Number [address] CERNER MILLENNIUM POCT Glucose (08/29/2013 2:10 PM EST) athologist Signature POC Glucose 142 60 - 199 CERNER mg/dL MILLENNIUM Comment: Supplemental ranges: <110 mg/dL before meals <200 mg/dL all other times of the day Specimen Anatomical Collection Method Collection Time Receive d Time (Source) Location / / Volume Laterality Blood specimen 08/29/2013 2:10 PM 013 2:10 (specimen) EST PM EST Leilani Keller MD POINT OF CARE TEST ORDERABLE S Performing Organization Address City/State/ZIP Code Phon e Number [address] CERNER MILLENNIUM POCT Glucose (08/29/2013 1:06 PM EST) athologist Signature POC Glucose 133 60 - 199 CERNER mg/dL MILLENNIUM Comment: Supplemental ranges: <110 mg/dL before meals <200 mg/dL all other times of the day Specimen Anatomical Collection Method Collection Time Receive d Time (Source) Location / / Volume Laterality Blood specimen 08/29/2013 1:06 PM 013 1:06 (specimen) EST PM EST Leilani Keller MD POINT OF CARE TEST ORDERABLE S Performing Organization Address City/State/[place] [address] CERNER MILLENNIUM (ABNORMAL) Differential, Automated (08/29/2013 12:25 PM EST) [facility] Method Time Signature Neutrophils % 97.9 (H) 34.0 - CERNER 71.0 % MILLENNIUM Neutr Abs (ANC) 15.40 (H) 1.50 - CERNER 6.30 MILLENNIUM x10(3)/mc L Lymphocytes % 0.7 (L) 19.0 - CERNER 53.0 % MILLENNIUM Lymphocytes Abs 0.1 (L) 1.0 - 3.6 CERNER x10(3)/mc MILLENNIUM L Monocytes % 1.0 (L) 4.0 - CERNER 13.0 % MILLENNIUM Monocyte Abs 0.2 0.2 - 1.0 CERNER x10(3)/mc MILLENNIUM L Eosinophils % 0.0 0.0 - 7.0 CERNER % MILLENNIUM Eosinophils Abs 0.0 0.0 - 0.5 CERNER x10(3)/mc MILLENNIUM L Basophils % 0.1 0.0 - 2.0 CERNER % MILLENNIUM Basophils [...] will be performed. Kym Gran Abs 0.05 0.00 - 0.05 x10(3)/mcL CER NER MILLENNIUM Specimen Anatomical Collection Method Collection Time Receive d Time (Source) Location / / Volume Laterality Blood specimen 08/29/2013 12:25 08/29/ 3 (specimen) PM EST 12:32 PM EST Leilani Keller MD HEMATOLOGY ORDERABLES Performing Organization Address City/State/ZIP Code [place] [address] CERNER MILLENNIUM (ABNORMAL) Basic Metabolic Panel (non-fasting) (08/29/2013 12:25 PM EST) athologist Signature Glucose Lvl 141 60 - 199 CERNER mg/dL MILLENNIUM Comment: Diabetes: >=200 mg/dL plus symp toms BUN 16 10 - 20 mg/dL CERNER MILLENNIU M Creatinine 0.79 (L) 0.80 - 1.50 mg/dL CERNER MILL [...] - 15 mmol/L CERNER MILLENNIU M Calcium 8.5 8.5 - 10.5 mg/dL CERNER LALA NIUM [...] the following links into your internet browser. http://www.tolingo.nih.gov/lab-evaluation. shtml http://www.kidney.org/professionals/ Specimen Anatomical Collection Method Collection Time Receive d Time (Source) Location / / Volume Laterality Blood specimen 08/29/2013 12:25 3 (specimen) PM EST 12:32 PM EST Resulting Agency Comment Spec In Lab Leilani Keller MD CHEMISTRY ORDERABLES Performing Organization Address City/[facility]/ZIP Code Phon e Number [address] CERNER MILLENNIUM (ABNORMAL) CBC (with Diff) (08/29/2013 12:25 PM EST) P athologist Signature WBC 15.7 (H) 4.0 - 10.0 CERNER x10(3)/mcL MILLENNIUM RBC 3.87 (L) 4.63 - CERNER 6.08 MILLENNIUM x10(6)/mcL Hemoglobin 12.0 (L) 13.7 - CERNER 17.5 gm/dL MILLENNIUM Hematocrit 35.1 (L) 40.0 - CERNER 51.0 % MILLENNIUM MCV 90.7 79.0 - CERNER 92.0 fL MILLENNIUM MCH 31.0 25.6 - CERNER 32.2 pg MILLENNIUM MCHC 34.2 32.0 - CERNER 36.5 gm/dL MILLENNIUM Platelets 144 (L) 145 - 370 CERNER x10(3)/mcL MILLENNIUM RDWSD 42.4 35.0 - CERNER 46.0 fL MILLENNIUM RDWCV 12.9 10.9 - CERNER 14.4 % MILLENNIUM MPV 11.2 9.0 - 12.0 CERNER fL MILLENNIUM Specimen Anatomical Collection Method Collection Time Receive d Time (Source) Location / / Volume Laterality Blood specimen 08/29/2013 12:25 3 (specimen) PM EST 12:32 PM EST Resulting Agency Comment Spec In Lab Leilani Keller MD HEMATOLOGY ORDERABLES Performing Organization Address City/[facility]/[place] [address] CERNER MILLENNIUM POCT Glucose (08/29/2013 12:06 PM EST) athologist Signature POC Glucose 130 60 - 199 CERNER mg/[facility] Comment: Supplemental ranges: <110 mg/dL before meals <200 mg/dL all other times of the day Specimen Anatomical Collection Method Collection Time Receive d Time (Source) Location / / Volume Laterality Blood specimen 08/29/2013 12:06 3 (specimen) PM EST 12:06 PM EST Leilani Keller MD POINT OF CARE TEST ORDERABLE S Performing Organization Address City/State/ZIP Code Phon e Number [address] CERNER MILLENNIUM POCT Glucose (08/29/2013 11:10 AM EST) athologist Signature POC Glucose 119 60 - 199 CERNER mg/dL [facility] Comment: Supplemental ranges: <110 mg/dL before meals <200 mg/dL all other times of the day Specimen Anatomical Collection Method Collection Time Receive d Time (Source) Location / / Volume Laterality Blood specimen 08/29/2013 11:10 3 (specimen) AM EST 11:10 AM EST Leilani Keller MD POINT OF CARE TEST ORDERABLE S Performing Organization Address City/[facility]/ZIP Code Phon e Number [address] CERNER MILLENNIUM POCT Glucose (08/29/2013 10:18 AM EST) athologist Signature POC Glucose 120 60 - 199 CERNER mg/dL [facility] Comment: Supplemental ranges: <110 mg/dL before meals <200 mg/dL all other times of the day Specimen Anatomical Collection Method Collection Time Receive d Time (Source) Location / / Volume Laterality Blood specimen 08/29/2013 10:18 3 (specimen) AM EST 10:18 AM EST Leilani Keller MD POINT OF CARE TEST ORDERABLE S Performing Organization Address City/State/ZIP Code Phon e Number [address] CERNER MILLENNIUM POCT Glucose (08/29/2013 8:59 AM EST) athologist Signature POC Glucose 130 60 - 199 CERNER mg/dL MILLENNIUM Comment: Supplemental ranges: <110 mg/dL before meals <200 mg/dL all other times of the day Specimen Anatomical Collection Method Collection Time Receive d Time (Source) Location / / Volume Laterality Blood specimen 08/29/2013 8:59 AM 013 8:59 (specimen) EST AM EST Leilani Keller MD POINT OF CARE TEST ORDERABLE S Performing Organization Address City/State/ZIP Code Phon e Number [address] CERNER MILLENNIUM POCT Glucose (08/29/2013 7:51 AM EST) athologist Signature POC Glucose 108 60 - 199 CERNER mg/dL [facility] Comment: Supplemental ranges: <110 mg/dL before meals <200 mg/dL all other times of the day Specimen Anatomical Collection Method Collection Time Receive d Time (Source) Location / / Volume Laterality Blood specimen 08/29/2013 7:51 AM 013 7:51 (specimen) EST AM EST Leilani Keller MD POINT OF CARE TEST ORDERABLE S Performing Organization Address City/State/ZIP Code Phon e Number [address] CERNER MILLENNIUM POCT Glucose (08/29/2013 7:12 AM EST) athologist Signature POC Glucose 114 60 - 199 CERNER mg/dL [facility] Comment: Supplemental ranges: <110 mg/dL before meals <200 mg/dL all other times of the day Specimen Anatomical Collection Method Collection Time Receive d Time (Source) Location / / Volume Laterality Blood specimen 08/29/2013 7:12 AM 013 7:12 (specimen) EST AM EST Leilani Keller MD POINT OF CARE TEST ORDERABLE S Performing Organization Address City/[facility]/ZIP Code Phon e Number [address] CERNER MILLENNIUM (ABNORMAL) Differential, Automated (08/29/2013 6:30 AM EST) [facility] gist Method Time Signature Neutrophils % 98.0 (H) 34.0 - CERNER 71.0 % MILLENNIUM Neutr Abs (ANC) 17.41 (H) 1.50 - CERNER 6.30 MILLENNIUM x10(3)/mc L Lymphocytes % 1.2 (L) 19.0 - CERNER 53.0 % MILLENNIUM Lymphocytes Abs 0.2 (L) 1.0 - 3.6 CERNER x10(3)/mc MILLENNIUM L Monocytes % 0.6 (L) 4.0 - CERNER 13.0 % MILLENNIUM Monocyte Abs 0.1 (L) 0.2 - 1.0 CERNER x10(3)/mc MILLENNIUM L Eosinophils % 0.0 0.0 - 7.0 CERNER % MILLENNIUM Eosinophils Abs 0.0 0.0 - 0.5 CERNER x10(3)/mc MILLENNIUM L Basophils % 0.0 0.0 - 2.0 CERNER % MILLENNIUM Basophils [...] performed. Kym Gran Abs 0.04 0.00 - 0.05 x10(3)/mcL CER NER MILLENNIUM Specimen Anatomical Collection Method Collection Time Receive d Time (Source) Location / / Volume Laterality Blood specimen 08/29/2013 6:30 AM 013 6:32 (specimen) EST AM EST Leilani Keller MD HEMATOLOGY ORDERABLES Performing Organization Address City/State/ZIP [place] [address] CERNER MILLENNIUM (ABNORMAL) Basic Metabolic Panel (non-fasting) (08/29/2013 6:30 AM EST) athologist Signature Glucose Lvl 120 60 - 199 CERNER mg/dL MILLENNIUM Comment: Diabetes: >=200 mg/dL plus symp toms BUN 15 10 - 20 mg/dL CERNER MILLENNIU M Creatinine 0.80 0.80 - 1.50 mg/dL CERNER MILL ENNIUM [...] - 15 mmol/L CERNER MILLENNIU M Calcium 8.4 (L) 8.5 - 10.5 mg/dL CERNER LALA NIUM [...] Location / / Volume Laterality Blood specimen 08/29/2013 6:30 AM 013 6:32 (specimen) EST AM EST Resulting Agency Comment Spec In Lab Leilani Keller MD CHEMISTRY ORDERABLES Performing Organization Address City/State/ZIP Code Phon e Number [place] [id number] CERNER MILLENNIUM (ABNORMAL) CBC (with Diff) (08/29/2013 6:30 AM EST) athologist Signature WBC 17.8 (H) 4.0 - 10.0 CERNER x10(3)/mcL MILLENNIUM RBC 3.82 (L) 4.63 - CERNER 6.08 MILLENNIUM x10(6)/mcL Hemoglobin 11.6 (L) 13.7 - CERNER 17.5 gm/dL MILLENNIUM Hematocrit 33.5 (L) 40.0 - CERNER 51.0 % MILLENNIUM MCV 87.7 79.0 - CERNER 92.0 fL MILLENNIUM MCH 30.4 25.6 - CERNER 32.2 pg MILLENNIUM MCHC 34.6 32.0 - CERNER 36.5 gm/dL MILLENNIUM Platelets 156 145 - 370 CERNER x10(3)/mcL MILLENNIUM RDWSD 41.4 35.0 - CERNER 46.0 fL MILLENNIUM RDWCV 12.8 10.9 - CERNER 14.4 % MILLENNIUM MPV 10.6 9.0 - 12.0 CERNER fL MILLENNIUM Specimen Anatomical Collection Method Collection Time Receive d Time (Source) Location / / Volume Laterality Blood specimen 08/29/2013 6:30 AM 013 6:32 (specimen) EST AM EST Resulting Agency Comment Spec In Lab Leilani Keller MD HEMATOLOGY ORDERABLES Performing Organization Address City/[facility]/ZIP Code Phon e Number [address] CERNER [facility] POCT Glucose (08/29/2013 6:24 AM EST) athologist Signature POC Glucose 99 60 - 199 CERNER mg/dL [facility] Comment: Supplemental ranges: <110 mg/dL before meals <200 mg/dL all other times of the day Specimen Anatomical Collection Method Collection Time Receive d Time (Source) Location / / Volume Laterality Blood specimen 08/29/2013 6:24 AM 013 6:24 (specimen) EST AM EST Leilani Keller MD POINT OF CARE TEST ORDERABLE S Performing Organization Address City/State/ZIP Code Phon e Number [address] CERNER MILLENNIUM POCT Glucose (08/29/2013 5:08 AM EST) athologist Signature POC Glucose 130 60 - 199 CERNER mg/dL MILLENNIUM Comment: Supplemental ranges: <110 mg/dL before meals <200 mg/dL all other times of the day Specimen Anatomical Collection Method Collection Time Receive d Time (Source) Location / / Volume Laterality Blood specimen 08/29/2013 5:08 AM 013 5:08 (specimen) EST AM EST Leilani Keller MD POINT OF CARE TEST ORDERABLE S Performing Organization Address City/State/ZIP Code Phon e Number [address] CERNER MILLENNIUM POCT Glucose (08/29/2013 4:01 AM EST) athologist Signature POC Glucose 142 60 - 199 CERNER mg/dL MILLENNIUM Comment: Supplemental ranges: <110 mg/dL before meals <200 mg/dL all other times of the day Specimen Anatomical Collection Method Collection Time Receive d Time (Source) Location / / Volume Laterality Blood specimen 08/29/2013 4:01 AM 013 4:01 (specimen) EST AM EST Leilani Keller MD POINT OF CARE TEST ORDERABLE S Performing Organization Address City/State/ZIP Code Phon e Number [address] CERNER MILLENNIUM POCT Glucose (08/29/2013 3:04 AM EST) athologist Signature POC Glucose 129 60 - 199 CERNER mg/dL MILLENNIUM Comment: Supplemental ranges: <110 mg/dL before meals <200 mg/dL all other times of the day Specimen Anatomical Collection Method Collection Time Receive d Time (Source) Location / / Volume Laterality Blood specimen 08/29/2013 3:04 AM 013 3:04 (specimen) EST AM EST Leilani Keller MD POINT OF CARE TEST ORDERABLE S Performing Organization Address City/State/[place] [address] CERNER MILLENNIUM POCT Glucose (08/29/2013 1:59 AM EST) athologist Signature POC Glucose 127 60 - 199 CERNER mg/dL MILLENNIUM Comment: Supplemental ranges: <110 mg/dL before meals <200 mg/dL all other times of the day Specimen Anatomical Collection Method Collection Time Receive d Time (Source) Location / / Volume Laterality Blood specimen 08/29/2013 1:59 AM 013 1:59 (specimen) EST AM EST Leilani Keller MD POINT OF CARE TEST ORDERABLE S Performing Organization Address City/State/ZIP Code Phon e Number [address] CERNER MILLENNIUM POCT Glucose (08/29/2013 1:02 AM EST) athologist Signature POC Glucose 135 60 - 199 CERNER mg/dL [facility] Comment: Supplemental ranges: <110 mg/dL before meals <200 mg/dL all other times of the day Specimen Anatomical Collection Method Collection Time Receive d Time (Source) Location / / Volume Laterality Blood specimen 08/29/2013 1:02 AM 013 1:02 (specimen) EST AM EST Leilani Keller MD POINT OF CARE TEST ORDERABLE S Performing Organization Address City/[facility]/[place] [address] CERNER MILLENNIUM (ABNORMAL) Differential, Automated (08/29/2013 12:30 AM EST) [facility] gist Method Time Signature Neutrophils % 98.4 (H) 34.0 - CERNER 71.0 % MILLENNIUM Neutr Abs (ANC) 19.03 (H) 1.50 - CERNER 6.30 MILLENNIUM x10(3)/mc L Lymphocytes % 0.5 (L) 19.0 - CERNER 53.0 % MILLENNIUM Lymphocytes Abs 0.1 (L) 1.0 - 3.6 CERNER x10(3)/mc MILLENNIUM L Monocytes % 0.8 (L) 4.0 - CERNER 13.0 % MILLENNIUM Monocyte Abs 0.2 0.2 - 1.0 CERNER x10(3)/mc MILLENNIUM L Eosinophils % 0.0 0.0 - 7.0 CERNER % MILLENNIUM Eosinophils Abs 0.0 0.0 - 0.5 CERNER x10(3)/mc MILLENNIUM L Basophils % 0.0 0.0 - 2.0 CERNER % MILLENNIUM Basophils [...] will be performed. Kym Gran Abs 0.05 0.00 - 0.05 x10(3)/mcL CER NER MILLENNIUM Specimen Anatomical Collection Method Collection Time Receive d Time (Source) Location / / Volume Laterality Blood specimen 08/29/2013 12:30 3 (specimen) AM EST 12:40 AM EST Leilani Keller MD HEMATOLOGY ORDERABLES Performing Organization Address City/State/[place] [address] CERNER MILLENNIUM Basic Metabolic Panel (non-fasting) (08/29/2013 12:30 AM EST) athologist Signature Glucose Lvl 124 60 - 199 CERNER mg/dL MILLENNIUM Comment: Diabetes: >=200 mg/dL plus symp toms BUN 12 10 - 20 mg/dL CERNER MILLENNIU M Creatinine 0.83 0.80 - 1.50 mg/dL CERNER MILL ENNIUM [...] - 15 mmol/L CERNER MILLENNIU M Calcium 8.5 8.5 - 10.5 mg/dL CERNER LALA NIUM [...] Location / / Volume Laterality Blood specimen 08/29/2013 12:30 3 (specimen) AM EST 12:40 AM EST Resulting Agency Comment Spec In Lab Leilani Keller MD CHEMISTRY ORDERABLES Performing Organization Address City/State/[place] [address] CERNER MILLENNIUM (ABNORMAL) CBC (with Diff) (08/29/2013 12:30 AM EST) P athologist Signature WBC 19.3 (H) 4.0 - 10.0 CERNER x10(3)/mcL MILLENNIUM RBC 4.01 (L) 4.63 - CERNER 6.08 MILLENNIUM x10(6)/mcL Hemoglobin 12.1 (L) 13.7 - CERNER 17.5 gm/dL MILLENNIUM Hematocrit 35.3 (L) 40.0 - CERNER 51.0 % MILLENNIUM MCV 88.0 79.0 - CERNER 92.0 fL MILLENNIUM MCH 30.2 25.6 - CERNER 32.2 pg MILLENNIUM MCHC 34.3 32.0 - CERNER 36.5 gm/dL MILLENNIUM Platelets 181 145 - 370 CERNER x10(3)/mcL MILLENNIUM RDWSD 40.9 35.0 - CERNER 46.0 fL MILLENNIUM RDWCV 12.7 10.9 - CERNER 14.4 % MILLENNIUM MPV 11.3 9.0 - 12.0 CERNER fL MILLENNIUM Specimen Anatomical Collection Method Collection Time Receive d Time (Source) Location / / Volume Laterality Blood specimen 08/29/2013 12:30 3 (specimen) AM EST 12:40 AM EST Resulting Agency Comment Spec In Lab Leilani Keller MD HEMATOLOGY ORDERABLES Performing Organization Address City/[facility]/ZIP Code Phon e Number [address] CERNER MILLENNIUM Phosphorus (08/29/2013 12:30 AM EST) P athologist Signature Phosphorus 3.5 2.5 - 4.5 CERNER mg/dL MILLENNIUM Specimen Anatomical Collection Method Collection Time Receive d Time (Source) Location / / Volume Laterality Blood specimen 08/29/2013 12:30 3 (specimen) AM EST 12:40 AM EST Resulting Agency Comment Spec In Lab Leilani Keller MD CHEMISTRY ORDERABLES Performing Organization Address City/[facility]/ZIP Code Phon e Number [address] CERNER MILLENNIUM Lipase (08/29/2013 12:30 AM EST) P athologist Signature Lipase 29 0 - 60 CERNER unit/L MILLENNIUM Specimen Anatomical Collection Method Collection Time Receive d Time (Source) Location / / Volume Laterality Blood specimen 08/29/2013 12:30 3 (specimen) AM EST 12:40 AM EST Resulting Agency Comment Spec In Lab Leilani Keller MD CHEMISTRY ORDERABLES Performing Organization Address City/[facility]/[place] [address] CERNER MILLENNIUM Amylase (08/29/2013 12:30 AM EST) athologist Signature Amylase 44 28 - 100 CERNER unit/L MILLENNIUM Specimen Anatomical Collection Method Collection Time Receive d Time (Source) Location / / Volume Laterality Blood specimen 08/29/2013 12:30 3 (specimen) AM EST 12:40 AM EST Resulting Agency Comment Spec In Lab Leilani Keller MD CHEMISTRY ORDERABLES Performing Organization Address City/[facility]/ZIP Code Phon e Number [address] CERNER MILLENNIUM Magnesium (08/29/2013 12:30 AM EST) athologist Signature Magnesium 0.78 0.69 - 1.07 CERNER mmol/L MILLENNIUM Specimen Anatomical Collection Method Collection Time Receive d Time (Source) Location / / Volume Laterality Blood specimen 08/29/2013 12:30 3 (specimen) AM EST 12:40 AM EST Resulting Agency Comment Spec In Lab Leilani Keller MD CHEMISTRY ORDERABLES Performing Organization Address City/[facility]/ZIP Code Phon e Number [address] CERNER MILLENNIUM POCT Glucose (08/29/2013 12:08 AM EST) athologist Signature POC Glucose 139 60 - 199 CERNER mg/dL [facility] Comment: Supplemental ranges: <110 mg/dL before meals <200 mg/dL all other times of the day Specimen Anatomical Collection Method Collection Time Receive d Time (Source) Location / / Volume Laterality Blood specimen 08/29/2013 12:08 3 (specimen) AM EST 12:08 AM EST Leilani Keller MD POINT OF CARE TEST ORDERABLE S Performing Organization Address City/[facility]/ZIP Code Phon e Number [address] CERNER MILLENNIUM POCT Glucose (08/28/2013 11:05 PM EST) athologist Signature POC Glucose 144 60 - 199 CERNER mg/dL [facility] Comment: Supplemental ranges: <110 mg/dL before meals <200 mg/dL all other times of the day Specimen Anatomical Collection Method Collection Time Receive d Time (Source) Location / / Volume Laterality Blood specimen 08/28/2013 11:05 3 (specimen) PM EST 11:05 PM EST Leilani Keller MD POINT OF CARE TEST ORDERABLE S Performing Organization Address City/State/[place] [address] CERNER MILLENNIUM POCT Glucose (08/28/2013 10:02 PM EST) athologist Signature POC Glucose 128 60 - 199 CERNER mg/dL MILLENNIUM Comment: Supplemental ranges: <110 mg/dL before meals <200 mg/dL all other times of the day Specimen Anatomical Collection Method Collection Time Receive d Time (Source) Location / / Volume Laterality Blood specimen 08/28/2013 10:02 3 (specimen) PM EST 10:02 PM EST Leilani Keller MD POINT OF CARE TEST ORDERABLE S Performing Organization Address City/[facility]/[place] [address] CERNER MILLENNIUM POCT Glucose (08/28/2013 8:58 PM EST) athologist Signature POC Glucose 133 60 - 199 CERNER mg/dL MILLENNIUM Comment: Supplemental ranges: <110 mg/dL before meals <200 mg/dL all other times of the day Specimen Anatomical Collection Method Collection Time Receive d Time (Source) Location / / Volume Laterality Blood specimen 08/28/2013 8:58 PM 013 8:58 (specimen) EST PM EST Leilani Keller MD POINT OF CARE TEST ORDERABLE S Performing Organization Address City/State/ZIP Code Phon e Number [address] CERNER MILLENNIUM POCT Glucose (08/28/2013 8:06 PM EST) athologist Signature POC Glucose 156 60 - 199 CERNER mg/dL MILLENNIUM Comment: Supplemental ranges: <110 mg/dL before meals <200 mg/dL all other times of the day Specimen Anatomical Collection Method Collection Time Receive d Time (Source) Location / / Volume Laterality Blood specimen 08/28/2013 8:06 PM 013 8:06 (specimen) EST PM EST Leilani Keller MD POINT OF CARE TEST ORDERABLE S Performing Organization Address City/[facility]/ZIP Code Phon e Number [address] CERNER MILLENNIUM POCT Glucose (08/28/2013 7:10 PM EST) P athologist Signature POC Glucose 142 60 - 199 CERNER mg/dL MILLENNIUM Comment: Supplemental ranges: <110 mg/dL before meals <200 mg/dL all other times of the day Specimen Anatomical Collection Method Collection Time Receive d Time (Source) Location / / Volume Laterality Blood specimen 08/28/2013 7:10 PM 013 7:10 (specimen) EST PM EST Leilani Keller MD POINT OF CARE TEST ORDERABLE S Performing Organization Address City/[facility]/[place] [address] CERNER MILLENNIUM POCT Glucose (08/28/2013 6:15 PM EST) athologist Signature POC Glucose 170 60 - 199 CERNER mg/dL MILLENNIUM Comment: Supplemental ranges: <110 mg/dL before meals <200 mg/dL all other times of the day Specimen Anatomical Collection Method Collection Time Receive d Time (Source) Location / / Volume Laterality Blood specimen 08/28/2013 6:15 PM 013 6:15 (specimen) EST PM EST Leilani Keller MD POINT OF CARE TEST ORDERABLE S Performing Organization Address City/[facility]/ZIP Code Phon e Number [address] CERNER MILLENNIUM (ABNORMAL) Differential, Manual (08/28/2013 6:05 PM EST) [facility] gist Method Time Signature Neutrophil % 70 34 - 71 % CERNER MILLENNIUM Band % 28 (H) 0 - 12 % CERNER MILLENNIUM Metamyelo % 2 (H) 0 - 0 % CERNER MILLENNIUM Neutrophil Abs 14.9 (H) 1.5 - 6.3 CERNER x10(3)/mc MILLENNIUM L Band Abs 6.0 (H) 0.2 - 0.6 CERNER x10(3)/mc MILLENNIUM L Neutr Abs (ANC) 20.84 (H) 1.50 - CERNER 6.30 MILLENNIUM x10(3)/mc L Metamyelo Abs 0.4 (H) 0.0 - 0.0 CERNER x10(3)/mc MILLENNIUM L Tot Diff Cell [address] MILLENNIUM Plat Estimate Normal CERNER MILLENNIUM RBC Morphology Normal CERNER MILLENNIUM Specimen Anatomical Collection Method Collection Time Receive d Time (Source) Location / / Volume Laterality Blood specimen 08/28/2013 6:05 PM 013 6:19 (specimen) EST PM EST Resulting Agency Comment Spec In Lab Leilani Keller MD HEMATOLOGY ORDERABLES Performing Organization Address City/State/[place] [address] CERNER MILLENNIUM Basic Metabolic Panel (non-fasting) (08/28/2013 6:05 PM EST) athologist Signature Glucose Lvl 166 60 - 199 CERNER mg/dL MILLENNIUM Comment: [...] - 5.0 mmol/L CERNER LALA NIUM Comment: Result rechecked. Please note: ??Patients with WBC >100,00 0 may have falsely elevated Potassium levels. ??For accurate Potassium quantif ication in these patients send serum separator tube (gold top) for subsequent determinations. ??Contact the Clinical Chemistry Laboratory if there are any qu estions. Chloride 104 98 - 107 mmol/L CERNER MILLENN IUM CO2 22 22 - 31 mmol/L CERNER MILLENNI UM Anion Gap 12 5 - 15 mmol/L CERNER MILLENNIU M Calcium 8.7 8.5 - 10.5 mg/dL FARNAZ LALA NIUM Estimated GFR >60 >=60 CERGUILLERMINA JUAREZENNIU M Comment: This estimated GFR (eGFR) value [...] Location / / Volume Laterality Blood specimen 08/28/2013 6:05 PM 013 6:19 (specimen) EST PM EST Resulting Agency Comment Spec In Lab Leilani Keller MD CHEMISTRY ORDERABLES Performing Organization Address City/State/ZIP Code Phon e Number [place] [phone] CERNER MILLENNIUM (ABNORMAL) CBC (with Diff) (08/28/2013 6:05 PM EST) P athologist Signature WBC 21.3 (H) 4.0 - 10.0 CERNER x10(3)/mcL MILLENNIUM RBC 4.12 (L) 4.63 - CERNER 6.08 MILLENNIUM x10(6)/mcL Hemoglobin 12.5 (L) 13.7 - CERNER 17.5 gm/dL MILLENNIUM Hematocrit 36.2 (L) 40.0 - CERNER 51.0 % MILLENNIUM MCV 87.9 79.0 - CERNER 92.0 fL MILLENNIUM MCH 30.3 25.6 - CERNER 32.2 pg MILLENNIUM MCHC 34.5 32.0 - CERNER 36.5 gm/dL MILLENNIUM Platelets 201 145 - 370 CERNER x10(3)/mcL MILLENNIUM RDWSD 40.8 35.0 - CERNER 46.0 fL MILLENNIUM RDWCV 12.6 10.9 - CERNER 14.4 % MILLENNIUM MPV 10.9 9.0 - 12.0 CERNER fL MILLENNIUM Specimen Anatomical Collection Method Collection Time Receive d Time (Source) Location / / Volume Laterality Blood specimen 08/28/2013 6:05 PM 013 6:19 (specimen) EST PM EST Resulting Agency Comment Spec In Lab Leilani Keller MD HEMATOLOGY ORDERABLES Performing Organization Address City/[facility]/ZIP Code Phon e Number [address] CERNER MILLENNIUM POCT Glucose (08/28/2013 5:18 PM EST) athologist Signature POC Glucose 168 60 - 199 CERNER mg/dL ENNIUM Comment: Supplemental ranges: <110 mg/dL before meals <200 mg/dL all other times of the day Specimen Anatomical Collection Method Collection Time Receive d Time (Source) Location / / Volume Laterality Blood specimen 08/28/2013 5:18 PM 013 5:18 (specimen) EST PM EST Leilani Keller MD POINT OF CARE TEST ORDERABLE S Performing Organization Address City/[facility]/ZIP Code Phon e Number [address] CERNER MILLENNIUM POCT Glucose (08/28/2013 4:13 PM EST) athologist Signature POC Glucose 131 60 - 199 [facility] mg/dL [facility] Comment: Supplemental ranges: <110 mg/dL before meals <200 mg/dL all other times of the day Specimen Anatomical Collection Method Collection Time Receive d Time (Source) Location / / Volume Laterality Blood specimen 08/28/2013 4:13 PM 013 4:13 (specimen) EST PM EST Leilani Keller MD POINT OF CARE TEST ORDERABLE S Performing Organization Address City/[facility]/ZIP Code Phon e Number [address] [facility] MILLEN[facility]UM APTT (08/28/2013 3:50 PM EST) athologist Signature PTT 32 25 - 35 sec CERNER MILLENNIUM Comment: Recommended therapeutic PTT range for fu ll dose unfractionated heparin is 80-114 seconds. Specimen Anatomical Collection Method Collection Time Receive d Time (Source) Location / / Volume Laterality Blood specimen 08/28/2013 3:50 PM 013 3:56 (specimen) EST PM EST Resulting Agency Comment Spec In Lab Leilani Keller MD HEMATOLOGY ORDERABLES Performing Organization Address City/[facility]/[place] [address] CERNER MILLENNIUM (ABNORMAL) Prothrombin Time (08/28/2013 3:50 PM EST) P athologist Signature PT 15.7 (H) 12.0 - 15.0 CERNER sec MILLENNIUM Comment: [facility] Transfusion Committee Guidelines: I NR less than 2.0, PTT less than OR equal to 43.5 seconds, or Fibrinogen gre ater than or equal to 100 mg/dl indicate adequate procoagulant activity for hemostasis in patients without underlying bleeding disorders. INR 1.2 (H) 0.9 - 1.1 CERNER MILLENNIUM Specimen Anatomical Collection Method Collection Time Receive d Time (Source) Location / / Volume Laterality Blood specimen 08/28/2013 3:50 PM 013 3:56 (specimen) EST PM EST Resulting Agency Comment Spec In Lab Leilani Keller MD HEMATOLOGY ORDERABLES Performing Organization Address City/[facility]/[place] [address] CERNER MILLENNIUM POCT Glucose (08/28/2013 2:37 PM EST) P athologist Signature POC Glucose 94 60 - 199 CERNER mg/dL [facility] Comment: Supplemental ranges: <110 mg/dL before meals <200 mg/dL all other times of the day Specimen Anatomical Collection Method Collection Time Receive d Time (Source) Location / / Volume Laterality Blood specimen 08/28/2013 2:37 PM 013 2:37 (specimen) EST PM EST Leilani Keller MD POINT OF CARE TEST ORDERABLE S Performing Organization Address City/[facility]/[place] [address] CERNER MILLENNIUM POCT Glucose (08/28/2013 1:10 PM EST) athologist Signature POC Glucose 92 60 - 199 CERNER mg/dL MILLENNIUM Comment: Supplemental ranges: <110 mg/dL before meals <200 mg/dL all other times of the day Specimen Anatomical Collection Method Collection Time Receive d Time (Source) Location / / Volume Laterality Blood specimen 08/28/2013 1:10 PM 013 1:10 (specimen) EST PM EST Leilani Keller MD POINT OF CARE TEST ORDERABLE S Performing Organization Address City/State/ZIP Code Phon e Number [address] CERNER MILLENNIUM POCT Glucose (08/28/2013 12:18 PM EST) athologist Signature POC Glucose 86 60 - 199 CERNER mg/dL MILLENNIUM Comment: Supplemental ranges: <110 mg/dL before meals <200 mg/dL all other times of the day Specimen Anatomical Collection Method Collection Time Receive d Time (Source) Location / / Volume Laterality Blood specimen 08/28/2013 12:18 3 (specimen) PM EST 12:18 PM EST Leilani Keller MD POINT OF CARE TEST ORDERABLE S Performing Organization Address City/[facility]/ZIP Code Phon e Number [address] [facility] MILLENNIUM (ABNORMAL) Differential, Automated (08/28/2013 11:40 AM EST) [facility] gist Method Time Signature Neutrophils % 99.0 (H) 34.0 - CERNER 71.0 % MILLENNIUM Neutr Abs (ANC) 7.80 (H) 1.50 - CERNER 6.30 MILLENNIUM x10(3)/mc L Lymphocytes % 0.3 (L) 19.0 - CERNER 53.0 % MILLENNIUM Lymphocytes Abs 0.0 (L) 1.0 - 3.6 CERNER x10(3)/mc MILLENNIUM L Monocytes % 0.4 (L) 4.0 - CERNER 13.0 % MILLENNIUM Monocyte Abs 0.0 (L) 0.2 - 1.0 CERNER x10(3)/mc MILLENNIUM L Eosinophils % 0.0 0.0 - 7.0 CERNER % MILLENNIUM Eosinophils Abs 0.0 0.0 - 0.5 CERNER x10(3)/mc MILLENNIUM L Basophils % 0.0 0.0 - 2.0 CERNER % MILLENNIUM Basophils [...] Location / / Volume Laterality Blood specimen 08/28/2013 11:40 3 (specimen) AM EST 11:48 AM EST Leilani Keller MD HEMATOLOGY ORDERABLES Performing Organization Address City/State/ZIP Code Phon e Number [place] [phone] CERNER MILLENNIUM (ABNORMAL) CBC (with Diff) (08/28/2013 11:40 AM EST) P athologist Signature WBC 7.9 4.0 - 10.0 CERNER x10(3)/mcL MILLENNIUM RBC 3.92 (L) 4.63 - CERNER 6.08 MILLENNIUM x10(6)/mcL Hemoglobin 12.0 (L) 13.7 - CERNER 17.5 gm/dL MILLENNIUM Hematocrit 35.1 (L) 40.0 - CERNER 51.0 % MILLENNIUM MCV 89.5 79.0 - CERNER 92.0 fL MILLENNIUM MCH 30.6 25.6 - CERNER 32.2 pg MILLENNIUM MCHC 34.2 32.0 - CERNER 36.5 gm/dL MILLENNIUM Platelets 175 145 - 370 CERNER x10(3)/mcL MILLENNIUM RDWSD 40.2 35.0 - CERNER 46.0 fL [facility] RDWCV 12.5 10.9 - CERNER 14.4 % [facility] MPV 10.7 9.0 - 12.0 CERNER fL [facility] Specimen Anatomical Collection Method Collection Time Receive d Time (Source) Location / / Volume Laterality Blood specimen 08/28/2013 11:40 3 (specimen) AM EST 11:48 AM EST Resulting Agency Comment Spec In Lab Leilani Keller MD HEMATOLOGY ORDERABLES Performing Organization Address City/State/ZIP Code Phon e Number [address] [facility] APTT (08/28/2013 11:40 AM EST) P athologist Signature PTT 32 25 - 35 sec [facility] Comment: Recommended therapeutic PTT range for fu ll dose unfractionated heparin is 80-114 seconds. Specimen Anatomical Collection Method Collection Time Receive d Time (Source) Location / / Volume Laterality Blood specimen 08/28/2013 11:40 3 (specimen) AM EST 11:48 AM EST Resulting Agency Comment Spec In Lab Leilani Keller MD HEMATOLOGY ORDERABLES Performing Organization Address City/[facility]/ZIP Code Phon e Number [address] [facility] (ABNORMAL) Prothrombin Time (08/28/2013 11:40 AM EST) P athologist Signature PT 16.0 (H) 12.0 - 15.0 [facility] Comment: [facility] Transfusion Committee Guidelines: I NR less than 2.0, PTT less than OR equal to 43.5 seconds, or Fibrinogen gre ater than or equal to 100 mg/dl indicate adequate procoagulant activity for hemostasis in patients without underlying bleeding disorders. INR 1.2 (H) 0.9 - 1.1 [facility] Specimen Anatomical Collection Method Collection Time Receive d Time (Source) Location / / Volume Laterality Blood specimen 08/28/2013 11:40 3 (specimen) AM EST 11:48 AM EST Resulting Agency Comment Spec In Lab Leilani Keller MD HEMATOLOGY ORDERABLES Performing Organization Address City/State/ZIP Code Phon e Number [place] [phone] CERNER MILLENNIUM (ABNORMAL) Comprehensive metabolic panel (non-fasting) (08/28/2013 11:40 AM EST) P athologist Signature Glucose Lvl 101 60 - 199 CERNER mg/dL MILLENNIUM Comment: Diabetes: >=200 mg/dL plus symp toms BUN 10 10 - 20 mg/dL CERNER MILLENNIU M Creatinine 0.84 0.80 - 1.50 mg/dL CERNER MILL ENNIUM Comment: Please note that the pediatric reference intervals supplied above were not validated at [facility]. Results from pediatri c patients should be interpreted in conjunction to the patient's age, height and muscle mass. Sodium 141 135 - 145 mmol/L CERNER LALA NIUM Potassium 3.4 (L) 3.5 - 5.0 mmol/L CERNER LALA NIUM [...] - 15 mmol/L CERNER MILLENNIU M Calcium 8.7 8.5 - 10.5 mg/dL CERNER LALA NIUM Total Protein 5.5 (L) 6.4 - 8.3 gm/dL CERNER MIL LENNIUM Albumin 3.6 3.2 - 5.2 gm/dL CERNER MILLENN IUM AST 29 0 - 39 unit/L CERNER MILLENNIU M ALT 17 0 - 55 unit/L CERNER MILLENNIU M Alk Phos 72 40 - 120 unit/L CERNER MILLENN IUM [...] Location / / Volume Laterality Blood specimen 08/28/2013 11:40 3 (specimen) AM EST 11:48 AM EST Resulting Agency Comment Spec In Lab Leilani Keller MD CHEMISTRY ORDERABLES Performing Organization Address City/[facility]/ZIP Code Phon e Number [address] CERNER MILLENNIUM (ABNORMAL) Magnesium (08/28/2013 11:40 AM EST) P athologist Signature Magnesium 0.50 (L) 0.69 - 1.07 CERNER mmol/L MILLENNIUM Specimen Anatomical Collection Method Collection Time Receive d Time (Source) Location / / Volume Laterality Blood specimen 08/28/2013 11:40 3 (specimen) AM EST 11:48 AM EST Resulting Agency Comment Spec In Lab Leilani Keller MD CHEMISTRY ORDERABLES Performing Organization Address City/[facility]/ZIP [facility] Phon e Number [address] CERNER [employer] XR chest PA or AP- 1 view (08/28/2013 11:24 AM EST) Anatomical Region Laterality Modality Chest N/A Radiographic Imaging Specimen (Source) Anatomical Collection Method Collection Time Re ceived Time Location / / Volume Laterality 08/28/2013 11:24 AM EST Narrative 08/28/2013 7:39 PM EST Examination CHEST AP/XPORT, 08/28/2013 ?? Clinical History confirm L IJ placement Comparison PA and lateral radiographs of the chest from earlier same day, 08/28/2013. Technique Portable AP chest radiograph at [address] Findings There has been interval placement of a l eft IJ venous catheter with the distal tip overlying the mid to distal SVC. ??A nasogastric tube has also been placed in the interim and is subdiaphragmatic, distal tip extending beyond the inferior aspect of the film. ??There is a lower degree of lung inflation with central and bibasilar vascular crowding, likely with a component of mild bibasilar subsegmental atelectasis. ??Th e cardiomediastinal silhouette is unremarkable for portable AP likely supi ne positioning. ??No large pleural effusion or pneumothorax identified. Impression ? 1. Satisfactory position of left IJ venous catheter. ??No pneumothorax visualized within the limitations of thi s presumably supine radiograph. ? 2. Subdiaphragmatic position of n asogastric tube, distal tip not imaged. ? 3. Low lung volumes with mild bib asilar subsegmental atelectasis. Procedure Note Saumya Nair MD - 08/28/2013Formatt ing of this note might be different from the original. Examination CHEST AP/XPORT, 08/28/2013 Clinical History confirm L IJ placement Comparison PA and lateral radiographs of the chest from earlier same day, 08/28/2013. Technique Portable AP chest radiograph at [address]. Findings There has been interval placement of a l eft IJ venous catheter with the distal tip overlying the mid to distal SVC. A n asogastric tube has also been placed in the interim and is subdiaphragmatic, distal tip extending beyond the inferior aspect of the film. There is a lower degree of lung inflation with central and bibasilar vascular crowding, likely with a component of mild bibasilar subsegmental atelectasis. The cardiomediastinal silhouette is unremarkable for portable AP likely supi ne positioning. No large pleural effusion or pneumothorax identified. Impression 1. Satisfactory position of left IJ ankit ous catheter. No pneumothorax visualized within the limitations of thi s presumably supine radiograph. 2. Subdiaphragmatic position of nasogas tric tube, distal tip not imaged. 3. Low lung volumes with mild bibasilar subsegmental atelectasis. Haleigh Hernandez MD IMG DX ORDERABLES POCT Glucose (08/28/2013 11:00 AM EST) P athologist Signature POC Glucose 136 60 - 199 CERNER mg/dL MILLENNIUM Comment: Supplemental ranges: <110 mg/dL before meals <200 mg/dL all other times of the day Specimen Anatomical Collection Method Collection Time Receive d Time (Source) Location / / Volume Laterality Blood specimen 08/28/2013 11:00 3 (specimen) AM EST 11:00 AM EST Leilani Keller MD POINT OF CARE TEST ORDERABLE S Performing Organization Address City/State/ZIP [place] [address] CERNER MILLENNIUM (ABNORMAL) BLOOD GAS 2 ARTERIAL (08/28/2013 10:01 AM EST) Analysis Performed At Patho logist Time Signature pH Art 7.37 CERNER MILLENNIUM pCO2 Art 40 mmHg CERNER MILLENNIUM pO2 Art 155 (H) mmHg CERNER MILLENNIUM HCO3 Art 22.4 mmol/L CERNER MILLENNIUM BE Art -2.9 mmol/L CERNER MILLENNIUM Hgb Blood Gas 11.3 (L) gm/dL CERNER MILLENNIUM Comment: Total Hemoglobin (in gm/dL) ?Based on [facility] Hematology ran ges: ?Age ?Referen ce Range Less than 3 days ?14.5 to 22.5 3 days to 2 weeks ? 12.5 to 20.5 2 weeks to 1 month ?10.0 to 18.0 1 to 6 months ?9.4 to 14 .0 6 months to 2 years ? 10.5 to 13.5 2 to 6 years ?11.5 to 13 .5 6 to 12 years ? 11.5 to 15. 5 12 to 18 years (female) 12.0 to 16.0 ? (male) ?? 13.0 to 16.0 > 18 years ? (female) 11.2 to 15.7 ? (male) ?? 13.7 to 17.5 O2HB Art 97.6 (H) % CERNER MILLENNIUM COHB Art 0.9 % CERNER MILLENNIUM Comment: Nonsmokers: 0.5-1.5% COHB Smokers: Variable, but usually less than 10% Toxic: 20-30% COHB Lethal: Greater than 60% COHB METHB Art 0.3 % CERNER MILLENNIUM Na Whole Blood 138 mmol/L CERNER MILLENNI UM K Whole Blood 2.7 (Critical) mmol/L CERNER MILL ENNIUM Comment: Noted by precision instrument and tool maker. Please note: Patients with WBC >100,000 may have falsely elevated Potassium levels. Contact the Clinical Chemistry L aboratory if there are any questions. ICa Whole Blood 1.11 (L) mmol/L CERNER MILLENN IUM Comment: Reference Ranges: ?? < 19 yrs: 1.22 - 1.37 mmol/L ? Adults: 1.15 - 1.33 mmol/L Note: ??Total bilirubin higher than 20 m g/dL may lead to falsely low ionized calcium. CL Whole Blood 109 (H) mmol/L CERNER MILLENNI UM Gluc Whole Bld 248 (H) mg/dL CERNER MILLENNI UM Comment: Diabetes: >=200 mg/dL plus symp toms. Specimen Anatomical Collection Method Collection Time Receive d Time (Source) Location / / Volume Laterality Blood specimen 08/28/2013 10:01 3 (specimen) AM EST 10:01 AM EST Leilani Keller MD CHEMISTRY ORDERABLES Performing Organization Address City/State/Z[place] [address] CERNER MILLENNIUM (ABNORMAL) BLOOD GAS 2 ARTERIAL (08/28/2013 9:31 AM EST) Analysis Performed At Patho logist Time Signature pH Art 7.36 CERNER MILLENNIUM pCO2 Art 45 mmHg CERNER MILLENNIUM pO2 Art 177 (H) mmHg CERNER MILLENNIUM HCO3 Art 24.8 mmol/L CERNER MILLENNIUM BE Art -0.6 mmol/L CERNER MILLENNIUM Hgb Blood Gas 12.3 (L) gm/dL CERNER MILLENNIUM Comment: Total Hemoglobin (in gm/dL) ?Based on [facility] Hematology ran ges: ?Age ?Referen ce Range Less than 3 days ?14.5 to 22.5 3 days to 2 weeks ? 12.5 to 20.5 2 weeks to 1 month ?10.0 to 18.0 1 to 6 months ?9.4 to 14 .0 6 months to 2 years ? 10.5 to 13.5 2 to 6 years ?11.5 to 13 .5 6 to 12 years ? 11.5 to 15. 5 12 to 18 years (female) 12.0 to 16.0 ? (male) ?? 13.0 to 16.0 > 18 years ? (female) 11.2 to 15.7 ? (male) ?? 13.7 to 17.5 O2HB Art 97.7 (H) % CERNER MILLENNIUM COHB Art 1.2 % CERNER MILLENNIUM Comment: Nonsmokers: 0.5-1.5% COHB Smokers: Variable, but usually less than 10% Toxic: 20-30% COHB Lethal: Greater than 60% COHB METHB Art 0.3 % CERNER MILLENNIUM Na Whole Blood 137 mmol/L CERNER MILLENNI UM K Whole Blood 3.2 (L) mmol/L CERNER MILLENNIU M Comment: Please note: Patients with WBC >100,000 may have falsely elevated Potassium levels. Contact the Clinical Chemistry L aboratory if there are any questions. ICa Whole Blood 1.16 mmol/L CERNER MILLENN IUM Comment: Reference Ranges: ?? < 19 yrs: 1.22 - 1.37 mmol/L ? Adults: 1.15 - 1.33 mmol/L Note: ??Total bilirubin higher than 20 m g/dL may lead to falsely low ionized calcium. CL Whole Blood 106 mmol/L CERNER MILLENNI UM Gluc Whole Bld 304 (H) mg/dL CERNER MILLENNI UM Comment: Diabetes: >=200 mg/dL plus symp toms. Specimen Anatomical Collection Method Collection Time Receive d Time (Source) Location / / Volume Laterality Blood specimen 08/28/2013 9:31 AM 013 9:31 (specimen) EST AM EST Leilani Keller MD CHEMISTRY ORDERABLES Performing Organization Address City/State/ZIP Code Phon e Number [place] [phone] CERNER MILLENNIUM (ABNORMAL) BLOOD GAS 2 ARTERIAL (08/28/2013 8:59 AM EST) Analysis Performed At Patho logis Time Signature pH Art 7.31 (L) CERNER MILLENNIUM pCO2 Art 48 (H) mmHg CERNER MILLENNIUM pO2 Art 93 mmHg CERNER MILLENNIUM HCO3 Art 23.3 mmol/L CERNER MILLENNIUM BE Art -3.0 mmol/L CERNER MILLENNIUM Hgb Blood Gas 11.9 (L) gm/dL CERNER MILLENNIUM Comment: Total Hemoglobin (in gm/dL) ?Based on [facility] Hematology ran ges: ?Age ?Referen ce Range Less than 3 days ?14.5 to 22.5 3 days to 2 weeks ? 12.5 to 20.5 2 weeks to 1 month ?10.0 to 18.0 1 to 6 months ?9.4 to 14 .0 6 months to 2 years ? 10.5 to 13.5 2 to 6 years ?11.5 to 13 .5 6 to 12 years ? 11.5 to 15. 5 12 to 18 years (female) 12.0 to 16.0 ? (male) ?? 13.0 to 16.0 > 18 years ? (female) 11.2 to 15.7 ? (male) ?? 13.7 to 17.5 O2HB Art 94.8 % CERNER MILLENNIUM COHB Art 1.4 % CERNER MILLENNIUM Comment: Nonsmokers: 0.5-1.5% COHB Smokers: Variable, but usually less than 10% Toxic: 20-30% COHB Lethal: Greater than 60% COHB METHB Art 0.3 % CERNER MILLENNIUM Na Whole Blood 139 mmol/L CERNER MILLENNI UM K Whole Blood 2.8 (Critical) mmol/L CERNER MILL ENNIUM Comment: Noted by precision instrument and tool maker. Please note: Patients with WBC >100,000 may have falsely elevated Potassium levels. Contact the Clinical Chemistry L aboratory if there are any questions. ICa Whole Blood 1.02 (L) mmol/L CERNER MILLENN IUM Comment: Reference Ranges: ?? < 19 yrs: 1.22 - 1.37 mmol/L ? Adults: 1.15 - 1.33 mmol/L Note: ??Total bilirubin higher than 20 m g/dL may lead to falsely low ionized calcium. CL Whole Blood 110 (H) mmol/L CERNER MILLENNI UM Gluc Whole Bld 239 (H) mg/dL CERNER MILLENNI UM Comment: Diabetes: >=200 mg/dL plus symp toms. Specimen Anatomical Collection Method Collection Time Receive d Time (Source) Location / / Volume Laterality Blood specimen 08/28/2013 8:59 AM 013 8:59 (specimen) EST AM EST Leilani Keller MD CHEMISTRY ORDERABLES Performing Organization Address City/[facility]/ZIP Code Phon e Number [place] [phone] CERNER MILLENNIUM Prepare RBC (08/28/2013 8:40 AM EST) P athologist Signature Dispensed? Yes CERNER MILLENNIUM Specimen Anatomical Collection Method Collection Time Receive d Time (Source) Location / / Volume Laterality Blood specimen 08/28/2013 8:40 AM 013 8:38 (specimen) EST AM EST Leilani Keller MD BLOOD BANK ORDERABLES Performing Organization Address City/[facility]/ZIP Code Phon e Number [place] [phone]OS[address] FARNAZ JUAREZENNIUM (ABNORMAL) BLOOD GAS 2 ARTERIAL (08/28/2013 8:00 AM EST) Analysis Performed At Patho logist Time Signature pH Art 7.42 CERNER MILLENNIUM pCO2 Art 42 mmHg CERNER MILLENNIUM pO2 Art 196 (H) mmHg CERNER MILLENNIUM HCO3 Art 26.3 (H) mmol/L CERNER MILLENNIUM BE Art 1.8 mmol/L CERNER MILLENNIUM Hgb Blood Gas 13.2 (L) gm/dL CERNER MILLENNIUM Comment: Total Hemoglobin (in gm/dL) ?Based on [facility] Hematology ran ges: ?Age ?Referen ce Range Less than 3 days ?14.5 to 22.5 3 days to 2 weeks ? 12.5 to 20.5 2 weeks to 1 month ?10.0 to 18.0 1 to 6 months ?9.4 to 14 .0 6 months to 2 years ? 10.5 to 13.5 2 to 6 years ?11.5 to 13 .5 6 to 12 years ? 11.5 to 15. 5 12 to 18 years (female) 12.0 to 16.0 ? (male) ?? 13.0 to 16.0 > 18 years ? (female) 11.2 to 15.7 ? (male) ?? 13.7 to 17.5 O2HB Art 98.0 (H) % CERNER MILLENNIUM COHB Art 0.7 % CERNER MILLENNIUM Comment: Nonsmokers: 0.5-1.5% COHB Smokers: Variable, but usually less than 10% Toxic: 20-30% COHB Lethal: Greater than 60% COHB METHB Art 0.3 % CERNER MILLENNIUM Na Whole Blood 138 mmol/L CERNER MILLENNI UM K Whole Blood 3.5 mmol/L CERNER MILLENNIU M Comment: Please note: Patients with WBC >100,000 may have falsely elevated Potassium levels. Contact the Clinical Chemistry L aboratory if there are any questions. ICa Whole Blood 1.12 (L) mmol/L CERNER MILLENN IUM Comment: Reference Ranges: ?? < 19 yrs: 1.22 - 1.37 mmol/L ? Adults: 1.15 - 1.33 mmol/L Note: ??Total bilirubin higher than 20 m g/dL may lead to falsely low ionized calcium. CL Whole Blood 104 mmol/L CERNER MILLENNI UM Gluc Whole Bld 219 (H) mg/dL CERNER MILLENNI UM Comment: Diabetes: >=200 mg/dL plus symp toms. Specimen Anatomical Collection Method Collection Time Receive d Time (Source) Location / / Volume Laterality Blood specimen 08/28/2013 8:00 AM 013 8:00 (specimen) EST AM EST Leilani Keller MD CHEMISTRY ORDERABLES Performing Organization Address City/[facility]/ZIP Code Phon e Number [address] CERNER MILLENNIUM (ABNORMAL) POCT Glucose (08/28/2013 5:18 AM EST) P athologist Signature POC Glucose 217 (H) 60 - 199 CERNER mg/dL MILLENNIUM Comment: Supplemental ranges: <110 mg/dL before meals <200 mg/dL all other times of the day Specimen Anatomical Collection Method Collection Time Receive d Time (Source) Location / / Volume Laterality Blood specimen 08/28/2013 5:18 AM 013 5:18 (specimen) EST AM EST Leilani Keller MD POINT OF CARE TEST ORDERABLE S Performing Organization Address City/[facility]/ZIP Code Phon e Number [address] CERNER MILLENNIUM POCT Glucose (08/28/2013 3:56 AM EST) P athologist Signature POC Glucose 198 60 - 199 CERNER mg/dL MILLENNIUM Comment: Supplemental ranges: <110 mg/dL before meals <200 mg/dL all other times of the day Specimen Anatomical Collection Method Collection Time Receive d Time (Source) Location / / Volume Laterality Blood specimen 08/28/2013 3:56 AM 013 3:56 (specimen) EST AM EST Leilani Keller MD POINT OF CARE TEST ORDERABLE S Performing Organization Address City/State/ZIP Code Phon e Number [place] [id number] CERNER MILLENNIUM Differential, Automated (08/28/2013 1:34 AM EST) P athologist Signature Neutrophils % 51.3 34.0 - CERNER 71.0 % MILLENNIUM Neutr Abs (ANC) 3.12 1.50 - CERNER 6.30 MILLENNIUM x10(3)/mcL Lymphocytes % 37.1 19.0 - CERNER 53.0 % MILLENNIUM Lymphocytes Abs 2.2 1.0 - 3.6 CERNER x10(3)/mcL MILLENNIUM Monocytes % 7.6 4.0 - 13.0 CERNER % MILLENNIUM Monocyte Abs 0.5 0.2 - 1.0 CERNER x10(3)/mcL MILLENNIUM Eosinophils % 3.1 0.0 - 7.0 CERNER % MILLENNIUM Eosinophils Abs 0.2 0.0 - 0.5 CERNER x10(3)/mcL MILLENNIUM Basophils [...] Location / / Volume Laterality Blood specimen 08/28/2013 1:34 AM 013 1:36 (specimen) EST AM EST Leilani Keller MD HEMATOLOGY ORDERABLES Performing Organization Address City/State/ZIP Code Phon e Number [address] [facility] Varicella zoster Antibody, IgG (08/28/2013 1:34 AM EST) P athologist Signature [facility] Spec[facility] Anatomical Collection Method Collection Time Receive d Time (Source) Location / / Volume Laterality Blood specimen 08/28/2013 1:34 AM 013 8:31 (specimen) EST AM EST Resulting Agency Comment Spec In Lab Leilani Keller MD IMMUNOLOGY ORDERABLES Performing Organization Address City/[facility]/ZIP Code Phon e Number [address] [facility] Hepatitis C Antibody (08/28/2013 1:34 AM EST) Analysis Performed At Patho logist Time Signature Hepatitis C Ab Negative Negative [facility] Comment: Please note that as of 04/05/2013, the charles ting methodology for this assay has changed. However there is no change in t he interpretation of the results. Specimen Anatomical Collection Method Collection Time Receive d Time (Source) Location / / Volume Laterality Blood specimen 08/28/2013 1:34 AM 013 1:36 (specimen) EST AM EST Resulting Agency Comment Spec In Lab Leilani Keller MD IMMUNOLOGY ORDERABLES Performing Organization Address City/[facility]/ZIP Code Phon e Number [address] [facility] HIV (08/28/2013 1:34 AM EST) P athologist Signature HIV 1/2 Ab Negative Negative [facility] Specimen Anatomical Collection Method Collection Time Receive d Time (Source) Location / / Volume Laterality Blood specimen 08/28/2013 1:34 AM 013 1:36 (specimen) EST AM EST Resulting Agency Comment Spec In Lab Leilani Keller MD IMMUNOLOGY ORDERABLES Performing Organization Address City/[facility]/[place] [address] [facility] CMV Antibody, IgG (08/28/2013 1:34 AM EST) P athologist Signature CMV IgG Neg Neg CERNER MILLENNIUM Specimen Anatomical Collection Method Collection Time Receive d Time (Source) Location / / Volume Laterality Blood specimen 08/28/2013 1:34 AM 013 8:31 (specimen) EST AM EST Resulting Agency Comment Spec In Lab Leilani Keller MD IMMUNOLOGY ORDERABLES Performing Organization Address City/[facility]/[place] [address] [facility] MILLEN[facility]UM APTT (08/28/2013 1:34 AM EST) P athologist Signature PTT 34 25 - 35 sec CERNER MILLENNIUM Comment: Recommended therapeutic PTT range for fu ll dose unfractionated heparin is 80-114 seconds. Specimen Anatomical Collection Method Collection Time Receive d Time (Source) Location / / Volume Laterality Blood specimen 08/28/2013 1:34 AM 013 1:36 (specimen) EST AM EST Resulting Agency Comment Spec In Lab Leilani Keller MD HEMATOLOGY ORDERABLES Performing Organization Address City/[facility]/[place] [address] [facility] MILLENNIUM Prothrombin Time (08/28/2013 1:34 AM EST) P athologist Signature PT 13.5 12.0 - 15.0 CERNER sec MILLENNIUM Comment: [facility] Transfusion Committee Guidelines: I NR less than 2.0, PTT less than OR equal to 43.5 seconds, or Fibrinogen gre ater than or equal to 100 mg/dl indicate adequate procoagulant activity for hemostasis in patients without underlying bleeding disorders. INR 1.0 0.9 - 1.1 CERNER MILLENNIUM Specimen Anatomical Collection Method Collection Time Receive d Time (Source) Location / / Volume Laterality Blood specimen 08/28/2013 1:34 AM 013 1:36 (specimen) EST AM EST Resulting Agency Comment Spec In Lab Leilani Keller MD HEMATOLOGY ORDERABLES Performing Organization Address City/[facility]/[place] [address] CERNER MILLENNIUM Phosphorus (08/28/2013 1:34 AM EST) athologist Signature Phosphorus 2.8 2.5 - 4.5 CERNER mg/dL MILLENNIUM Specimen Anatomical Collection Method Collection Time Receive d Time (Source) Location / / Volume Laterality Blood specimen 08/28/2013 1:34 AM 013 1:36 (specimen) EST AM EST Resulting Agency Comment Spec In Lab Leilani Keller MD CHEMISTRY ORDERABLES Performing Organization Address City/[facility] Phon e Number [address] CERNER MILLENNIUM Magnesium (08/28/2013 1:34 AM EST) athologist Signature Magnesium 0.79 0.69 - 1.07 CERNER mmol/L MILLENNIUM Specimen Anatomical Collection Method Collection Time Receive d Time (Source) Location / / Volume Laterality Blood specimen 08/28/2013 1:34 AM 013 1:36 (specimen) EST AM EST Resulting Agency Comment Spec In Lab Leilani Keller MD CHEMISTRY ORDERABLES Performing Organization Address City/[facility] Phon e Number [address] CERNER MILLENNIUM (ABNORMAL) Comprehensive metabolic panel (non-fasting) (08/28/2013 1:34 AM EST) athologist Signature Glucose Lvl 251 (H) 60 - 199 CERNER mg/dL MILLENNIUM Comment: [...] - 145 mmol/L CERNER LALA NIUM Potassium 3.4 (L) 3.5 - 5.0 mmol/L CERNER LALA NIUM [...] - 5.2 gm/dL CERNER MILLENN IUM AST 17 0 - 39 unit/L CERNER MILLENNIU M ALT 18 0 - 55 unit/L CERNER MILLENNIU M Alk Phos 84 40 - 120 unit/L CERNER MILLENN IUM [...] Location / / Volume Laterality Blood specimen 08/28/2013 1:34 AM 013 1:36 (specimen) EST AM EST Resulting Agency Comment Spec In Lab Leilani Keller MD CHEMISTRY ORDERABLES Performing Organization Address City/State/ZIP Code Phon e Number [place] [phone] CERNER MILLENNIUM (ABNORMAL) CBC (with Diff) (08/28/2013 1:34 AM EST) P athologist Signature WBC 6.1 4.0 - 10.0 CERNER x10(3)/mcL MILLENNIUM RBC 4.15 (L) 4.63 - CERNER 6.08 MILLENNIUM x10(6)/mcL Hemoglobin 12.5 (L) 13.7 - CERNER 17.5 gm/dL MILLENNIUM Hematocrit 36.4 (L) 40.0 - CERNER 51.0 % MILLENNIUM MCV 87.7 79.0 - CERNER 92.0 fL MILLENNIUM MCH 30.1 25.6 - CERNER 32.2 pg MILLENNIUM MCHC 34.3 32.0 - CERNER 36.5 gm/dL MILLENNIUM Platelets 222 145 - 370 CERNER x10(3)/mcL MILLENNIUM RDWSD 40.3 35.0 - CERNER 46.0 fL MILLENNIUM RDWCV 12.5 10.9 - CERNER 14.4 % MILLENNIUM MPV 11.0 9.0 - 12.0 CERNER fL MILLENNIUM Specimen Anatomical Collection Method Collection Time Receive d Time (Source) Location / / Volume Laterality Blood specimen 08/28/2013 1:34 AM 013 1:36 (specimen) EST AM EST Resulting Agency Comment Spec In Lab Leilani Keller MD HEMATOLOGY ORDERABLES Performing Organization Address City/[facility]/ZIP Code Phon e Number [address] [facility] Antibody screen (08/28/2013 1:28 AM EST) Analysis Performed At Patho logist Time Signature Ab Screen Negative [facility] Interp MILLENNIUM Expires at [phone] [facility] [id number] on: MILLENNIUM Specimen Anatomical Collection Method Collection Time Receive d Time (Source) Location / / Volume Laterality Blood specimen 08/28/2013 1:28 AM 013 1:33 (specimen) EST AM EST Resulting Agency Comment Spec In Lab Leilani Keller MD BLOOD BANK ORDERABLES Performing Organization Address City/[facility] Phon e Number [address] [facility] MILLENNIUM ABO/Rh Typing (08/28/2013 1:28 AM EST) P athologist Signature ABORh Type O Pos CERNER [facility] Specimen Anatomical Collection Method Collection Time Receive d Time (Source) Location / / Volume Laterality Blood specimen 08/28/2013 1:28 AM 013 1:33 (specimen) EST AM EST Resulting Agency Comment Spec In Lab Leilani Keller MD BLOOD BANK ORDERABLES Performing Organization Address City/State/[place] [address] [place]NER [employer] XR chest routine PA & lateral (08/28/2013 12:41 AM EST) Anatomical Region Laterality Modality Chest N/A Radiographic Imaging Specimen (Source) Anatomical Collection Method Collection Time Re ceived Time Location / / Volume Laterality 08/28/2013 12:41 AM EST Narrative 08/28/2013 7:35 PM EST Examination CHEST ROUTINE 2 VIEWS, 08/28/2013 ?? Clinical History Pre-Op Transplant Comparison PA and lateral radiographs of the chest, 11/15/2012. Technique PA and lateral radiographs of the chest. Findings The lungs appear clear. The cardiomedias tinal ??silhouette, vaughn, and pulmonary vasculature are stable and unremarkable. ??No pleural effusions. ??No significant interval osseous findings identified. Impression No acute cardiopulmonary pathology. Procedure Note Saumya Nair MD - 08/28/2013Formatt ing of this note might be different from the original. Examination CHEST ROUTINE 2 VIEWS, 08/28/2013 Clinical History Pre-Op Transplant Comparison PA and lateral radiographs of the chest, 11/15/2012. Technique PA and lateral radiographs of the chest. Findings The lungs appear clear. The cardiomedias tinal silhouette, vaughn, and pulmonary vasculature are stable and unremarkable. No pleural effusions. No significant interval osseous findings identified. Impression No acute cardiopulmonary pathology. Leilani Keller MD IMG DX ORDERABLES EKG 12 Lead (08/27/2013 11:47 PM EST) Component Value Ref Range Test Analysis Performed Pathologis t Method Time At Signature Ventricular rate 53 BPM MUSE SYSTEM Atrial Rate 53 BPM MUSE SYSTEM P-R Interval 170 ms MUSE SYSTEM QRS Duration 94 ms MUSE SYSTEM Q-T Interval 470 ms MUSE SYSTEM QTC Calculated 441 ms MUSE SYSTEM (Bezet) Calculated P [place] 52 degrees MUSE SYSTEM Calculated R [place] 60 degrees MUSE SYSTEM Calculated T [place] 38 degrees MUSE SYSTEM INTERPRETATION Sinus bradycardia MUSE SY STEM Otherwise normal ECG When compared with ECG of 15-NOV-2012 08:37, No significant change was found Confirmed by MD Andrzej, Andrea Fu ([id number]) on 08/28/2013 9:29:3 5 AM Specimen Anatomical Collection Method Collection Time Receive d Time (Source) Location / / Volume Laterality 08/27/2013 11:47 08/28/2013 9:29 PM EST AM EST Leilani Keller MD ECG ORDERABLES Performing Organization Address City/State/ZIP Code Phon e Number MUSE SYSTEM (ABNORMAL) POCT Glucose (08/27/2013 11:35 PM EST) P athologist Signature POC Glucose 242 (H) 60 - 199 CERNER mg/dL [facility] Comment: Supplemental ranges: <110 mg/dL before meals <200 mg/dL all other times of the day Specimen Anatomical Collection Method Collection Time Receive d Time (Source) Location / / Volume Laterality Blood specimen 08/27/2013 11:35 3 (specimen) PM EST 11:35 PM EST Leilani Keller MD POINT OF CARE TEST ORDERABLE S Performing Organization Address City/State/[place] [address] [facility] documented in this encounter Visit Diagnoses Diagnosis Diabetes mellitus Type II or unspecified type diabetes bria litus without mention of complication, not stated as uncontrolled Immunosuppression Unspecified disorder of immune mechanism Pancreatitis Acute pancreatitis documented in this encounter Administered Medications Inactive Administered Medications - up to 3 most recent administrations Medication Order MAR Action Action Date Dose Rate Site acetaminophen (TYLENOL) tablet 650 Given 08/28/2013 6:11 AM EST 650 mg mg 650 mg, Oral, CRIMINAL LEGAL ASSISTANT TO O.R., 1 dose, On 08/27/13 at 2345, To be given in OR acetaminophen (TYLENOL) tablet 650 mg Given 09/02/2013 9:24 AM EST 650 mg 650 mg, Oral, EVERY 4 HOURS PRN, Starting on 08/28/13 at 1335, Until 09/02/13 at 1555, Pain, Fever. if oral temperature greater than 38.5 Centigrade, Give 30 minutes prior to administration of thymoglobulin., Routine Given 09/01/2013 8:53 PM EST 650 mg Given 09/01/2013 2:37 PM EST 650 mg aspirin tablet 325 mg Given 09/02/2013 8:24 AM EST 325 mg 325 mg, Oral, DAILY, First dose on 08/28/13 at 1400, Until Discontinued, Routine Given 09/01/2013 9:00 AM EST 325 mg Given 08/31/2013 9:00 AM EST 325 mg citalopram (celeXA) tablet 40 mg Given 09/02/2013 8:24 AM EST 40 mg 40 mg, Oral, DAILY, First dose on 08/28/13 at 1400, Until Discontinued, Routine Given 09/01/2013 9:00 AM EST 40 mg Given 08/31/2013 9:00 AM EST 40 mg diphenhydrAMINE (BENADRYL) injection 50 mg Given 08/28/2013 6:11 AM EST 50 mg 50 mg, Intravenous, CRIMINAL LEGAL ASSISTANT TO O.R., 1 dose, On 08/27/13 at 2345, 1 dose owner oral surgeon to operating room., Routine enoxaparin (LOVENOX) injection 30 mg Given 09/02/2013 8:24 AM EST 30 mg 30 mg, Subcutaneous, EVERY 12 HOURS SCHEDULED (2 times per day), First dose on Thu08/29/13 at 1445, Until Discontinued, Routine Given 09/01/2013 9:00 PM EST 30 mg Given 09/01/2013 9:00 AM EST 30 mg erythromycin (ERYTHROCIN) 250 mg in Given 09/01/2013 9:00 AM EST 250 mg 105 mL/hr sodium chloride 0.9% 105 mL 250 mg, Intravenous, EVERY 12 HOURS SCHEDULED (2 times per day), First dose on Thu08/29/13 at 0900, Until Discontinued, Administer over 60 Minutes, Indication for (Active or Suspected): Other (See Comment) Given 08/31/2013 9:04 PM EST 250 mg 105 mL/hr Given 08/31/2013 9:00 AM EST 250 mg 105 mL/hr esomeprazole (NEXIUM) capsule 40 mg Given 08/27/2013 12:55 AM EST 40 mg 40 mg, Oral, ONCE, 1 dose, On 08/27/13 at 2345, Routine esomeprazole (NEXIUM) capsule 40 mg Given 08/30/2013 9:22 AM EST 40 mg 40 mg, Oral, DAILY, First dose on Thu08/28/13 at 1400, Until Discontinued, If unable to take PO, may give IV, Routine esomeprazole (NEXIUM) injection 40 mg Given 09/02/2013 8:24 AM EST 40 mg 40 mg, Intravenous, DAILY, First dose on Thu08/28/13 at 1400, Until Discontinued, Routine Given 09/01/2013 9:00 AM EST 40 mg Given 08/31/2013 9:00 AM EST 40 mg fluconazole (DIFLUCAN) tablet 200 mg Given 09/02/2013 8:24 AM EST 200 mg 200 mg, Oral, DAILY, First dose on Thu09/02/13 at 0900, Until Discontinued, Routine fluconazole 200mg in sodium chloride Given 09/01/2013 7:30 A M EST 200 mg 100 mL/hr 0.9% 100mL 200 mg, Intravenous, EVERY 24 HOURS, First dose on Thu08/29/13 at 0730, Until Discontinued, Administer over 60 Minutes, Indication for (Active or Suspected): Prophylaxis, Restricted Antibiotic: Please indicate the most appropriate choice: Pre-approved Indication (State the indication in Comments field) Given 08/31/2013 6:58 AM EST 200 mg 100 mL/hr Given 08/30/2013 9:22 AM EST 200 mg 100 mL/hr ganciclovir (CYTOVENE) 475 mg in Given 09/02/2013 9:20 AM ES T 475 mg 109.5 mL/hr sodium chloride 0.9% 109.5 mL 475 mg, Intravenous, EVERY 24 HOURS, First dose on Thu08/29/13 at 0900, Until Discontinued, Administer over 60 Minutes, Creatinine Clearance greater than or equal to 70 mL/min. Dose rounded per Dose Rounding Policy, Indication for (Active or Suspected): Prophylaxis Given 09/01/2013 9:00 AM EST 475 mg 109.5 mL/hr Given 08/31/2013 9:00 AM EST 475 mg 109.5 mL/hr HYDROmorphone (DILAUDID) 1 mg/mL New Syringe/Cartridge 08/30/2013 3:0 0 PM EST STILE RIPSAW OPERATOR 30 mL Intravenous, STILE RIPSAW OPERATOR ONLY, Starting on Thu08/28/13 at 1200, Until Vanessa 09/01/13 at 0652 Rate/Dose Verify 08/28/2013 1:37 PM EST New Syringe/Cartridge 08/28/2013 11:51 AM EST HYDROmorphone (DILAUDID) 30 mg/30 mL inf usion 1 dose, Starting on Thu08/28/13 at 1131, Until Thu at 2344, ANNIE ESPINO: rosio adam HYDROmorphone (DILAUDID) injection 0.2-0.4 Given 08/28/2013 11:44 AM EST 0.4 mg mg 0.2-0.4 mg, Intravenous, EVERY 5 MIN PRN, Starting on Thu08/28/13 at 1028, Until Thu08/28/13 at 1247, Pain, For moderate pain give: 0.2 mg every 5 minute prn For severe pain give: 0.4 mg every 5 minutes prn Maximum dose: 4 mg per hour Hold for respiratory rate less than 10 per minute., PACU Recovery, Routine Given 08/28/2013 11:23 AM EST 0.4 mg Given 08/28/2013 11:11 AM EST 0.4 mg HYDROmorphone (DILAUDID) tablet 2-4 mg Given 09/02/2013 9:24 AM EST 4 mg 2-4 mg, Oral, EVERY 3 HOURS PRN, Starting on Thu08/31/13 at 0832, Until Thu09/02/13 at 1555, Pain, Routine Given 09/02/2013 2:21 AM EST 4 mg Given 09/01/2013 10:28 PM EST 4 mg lactated ringers 1,000 mL IV bolus Given 09/01/2013 9:30 AM EST Intravenous, ONCE, 1 dose, On Vanessa 09/01/13 at 0930 lactated ringers infusion New Bag 08/30/2013 3:39 AM EST 125 mL/hr 125 mL/hr 125 mL/hr, Intravenous, CONTINUOUS, Starting on Thu08/28/13 at 1200, Until Thu08/30/13 at 1112 New Bag 08/29/2013 7:15 PM EST 125 mL/hr 125 mL/hr New Bag 08/28/2013 11:06 PM EST 125 mL/hr 125 mL/hr levothyroxine (SYNTHROID) tablet 200 mcg Given 09/02/2013 6:00 AM EST 200 mcg 200 mcg, Oral, EVERY MORNING, First dose on Thu08/28/13 at 0600, Until Discontinued, Routine Given 09/01/2013 5:14 AM EST 200 mcg Given 08/31/2013 5:37 AM EST 200 mcg magnesium oxide (MAG-OX) tablet 400 mg Given 09/02/2013 9:20 AM EST 400 mg 400 mg, Oral, 2 TIMES DAILY, First dose on Thu09/02/13 at 0900, Until Discontinued, Routine magnesium sulfate 1g in dextrose 5% Given 09/02/2013 9:20 AM EST 1 g 100 mL/hr 100mL 1 g, Intravenous, ONCE, 1 dose, On Thu09/02/13 at 0800, Administer over 60 Minutes magnesium sulfate 2 g in sterile water 50 Given 08/28/2013 2 :02 PM EST 2 g 25 mL/hr mL 2 g, Intravenous, ONCE, 1 dose, On 08/28/13 at 1315, Administer over 120 Minutes methylprednisolone sodium succinate Given 08/29/2013 9:15 AM EST 250 mg 108 mL/hr (PF) (SOLU-MEDROL) 250 mg in sodium chloride 0.9% 54 mL 250 mg, Intravenous, DAILY, 1 dose, First dose on Thu08/29/13 at 0900, Administer over 30 Minutes methylprednisolone sodium succinate Given 08/28/2013 6:12 AM EST 375 mg 112 mL/hr (PF) (SOLU-MEDROL) 375 mg in sodium chloride 0.9% 56 mL 375 mg, Intravenous, CRIMINAL LEGAL ASSISTANT TO O.R., 1 dose, On 08/27/13 at 2345, Administer over 30 Minutes, 1 dose owner oral surgeon to operating room. methylprednisolone sodium succinate (PF) Given 08/30/2013 9:22 A M EST 125 mg (SOLU-MEDROL) injection 125 mg 125 mg, Intravenous, DAILY, 1 dose, First dose on Thu08/30/13 at 0900 mycophenolate (CELLCEPT) capsule 1,000 m g Given 08/28/2013 6:12 AM EST 1,000 mg 1,000 mg, Oral, CRIMINAL LEGAL ASSISTANT TO O.R., 1 dose, On 08/27/13 at 2345, call or contact centre manager to O.R., Routine mycophenolate (CELLCEPT) capsule 750 mg Given 09/02/2013 8:24 AM EST 750 mg 750 mg, Oral, 2 TIMES DAILY, First dose on 08/28/13 at 1900, Until Discontinued, Routine Given 09/01/2013 8:00 PM EST 750 mg Given 09/01/2013 8:00 AM EST 750 mg naproxen sodium (ANAPROX) tablet 550 mg Given 09/01/2013 6:46 PM EST 550 mg 550 mg, Oral, 2 TIMES DAILY PRN, Pain, Starting on Vanessa 09/01/13 at 1730, Until Thu09/02/13 at 1555, take with food or milk neomycin (MYCIFRADIN) tablet 1,000 mg Given 08/28/2013 2:51 AM EST 1,000 mg 1,000 mg, Oral, EVERY 2 HOURS, 2 doses, First dose on 08/27/13 at 2345, Last dose on 08/28/13 at 0145, Routine Given 08/27/2013 12:56 AM EST 1,000 mg ondansetron (ZOFRAN) injection 4 mg Given 08/30/2013 6:04 AM EST 4 mg 4 mg, Intravenous, ONCE, 1 dose, On 08/30/13 at 0600 ondansetron (ZOFRAN) injection 4-8 mg Given 09/02/2013 9:47 AM EST 4 mg 4-8 mg, Intravenous, EVERY 8 HOURS PRN, Starting on Thu08/29/13 at 0738, Until Thu09/02/13 at 1555, Nausea Given 09/01/2013 6:46 PM EST 4 mg Given 09/01/2013 3:01 PM EST 4 mg phenol 1.4% (CHLORASEPTIC) spray 1 spray Given 08/30/2013 9:00 AM EST 1 spray 1 spray, Oral, EVERY 2 HOURS PRN, Starting on Thu08/28/13 at 1621, Until Thu09/02/13 at 1555, Irritation, Routine Given 08/30/2013 6:43 AM EST 1 spray Given 08/30/2013 2:53 AM EST 1 spray piperacillin-tazobactam (ZOSYN) 4.5 g Given 09/02/2013 8:24 AM EST 4.5 g 240 mL/hr in sodium chloride 0.9% 120 mL 4.5 g, Intravenous, EVERY 6 HOURS, First dose on Thu08/28/13 at 1300, Until Discontinued, Administer over 30 Minutes, Indication for (Active or Suspected): Prophylaxis Given 09/02/2013 2:00 AM EST 4.5 g 240 mL/hr Given 09/01/2013 8:00 PM EST 4.5 g 240 mL/hr potassium chloride (K-DUR/KLOR-CON) extended Given 10/2013 5:45 PM EST 40 mEq release tablet 40 mEq 40 mEq, Oral, EVERY 4 HOURS, 3 doses, First dose on Thu09/01/13 at 0945, Last dose on Thu09/01/13 at 1745, 20 mEq tablet may be dissolved in water for administration, Routine Given 09/01/2013 1:45 PM EST 40 mEq Given 09/01/2013 9:45 AM EST 40 mEq potassium chloride (K-DUR/KLOR-CON) extended Given 10/2013 8:24 AM EST 40 mEq release tablet 40 mEq 40 mEq, Oral, 3 TIMES DAILY WITH MEALS, First dose (after last reorder) on Thu09/02/13 at 0800, Until Discontinued, 20 mEq tablet may be dissolved in water for administration, Routine potassium chloride 20 mEq in 100 mL Given 08/28/2013 5:33 PM EST 20 mEq 20 mEq, Intravenous, EVERY 2 HOURS, 3 doses, First dose on Thu08/28/13 at 1315, Last dose on Thu08/28/13 at 1715 Given 08/28/2013 4:15 PM EST 20 mEq Given 08/28/2013 1:53 PM EST 20 mEq potassium phosphate (monobasic) (K-PHOS) Given 09/02/2013 1:45 P M EST 500 mg tablet 500 mg 500 mg, Oral, 4 TIMES DAILY WITH MEALS & NIGHTLY, First dose on Thu09/02/13 at 1200, Until Discontinued, Dissolve tablets in 6-8 oz of water; for best results, soak tablets in water for 2-5 minutes, then stir and give to patient., Routine prochlorperazine (COMPAZINE) injection 5 mg Given 09/01/2013 12:36 AM EST 5 mg 5 mg, Intravenous, EVERY 30 MIN PRN, 2 doses, Starting on 08/28/13 at 1335, Until Thu09/01/13 at 0036, Nausea, May repeat in 30 minutes if no relief from previous dose. HOLD if patient is sedated. Maximum dose is 40 mg in 24 hours., Routine Given 08/29/2013 12:52 AM EST 5 mg sodium chloride 0.45% infusion New Bag 08/31/2013 8:19 PM EST 75 mL/hr 75 mL/hr 75 mL/hr, Intravenous, CONTINUOUS, Starting on Thu08/30/13 at 1130, Until Vanessa 09/01/13 at 0652 New Bag 08/31/2013 6:52 AM EST 75 mL/hr 75 mL/hr New Bag 08/30/2013 12:00 PM EST 75 mL/hr 75 mL/hr sodium chloride 0.9% 1,000 mL IV bolus Given 09/02/2013 10:35 AM EST Intravenous, DAILY, First dose on Thu09/02/13 at 1045, Until Discontinued sulfamethoxazole-trimethoprim (BACTRIM DS) Given 09/02 1:45 PM EST 1 tablet 800-160 mg per tablet 1 tablet 1 tablet, Oral, THREE TIMES WEEKLY (Once per day on Thu), First dose on Thu09/02/13 at 1200, Until Discontinued, Routine tacrolimus (PROGRAF) capsule 2 mg Given 09/02/2013 8:24 AM EST 2 mg 2 mg, Oral, 2 TIMES DAILY, First dose on Thu08/29/13 at 0900, Until Discontinued, Routine Given 09/01/2013 9:00 PM EST 2 mg Given 09/01/2013 9:00 AM EST 2 mg traMADol (ULTRAM) tablet 50 mg Given 09/01/2013 6:46 PM EST 50 mg 50 mg, Oral, EVERY 6 HOURS PRN, Starting on Thu09/01/13 at 1731, Until Thu09/02/13 at 1555, Pain, Routine documented in this encounter Active and Recently Administered Medications Times are shown in EST. Scheduled Medication Order 08/31/2013 09/01/2013 09/02/2013 aspirin tablet 325 mg (CANCELED) 0900 (Given - Provider: Briana Arboleda RN) 0900 (Given - Provider: Yolie Bearden RN) 0824 (Given - Provider: Ashley Sanders RN) 325 mg, Oral, DAILY, First dose on Thu at 1400, Until Discontinued, Routine citalopram (celeXA) tablet 40 mg (CANCELED) 0900 (Give n - Provider: Sylvain Arboleda RN) 0900 (Given - Provider: Yolie Bearden RN) 0824 (Given - Provider: Ashley Sanders RN) 40 mg, Oral, DAILY, First dose on Thu at 1400, Until Discontinued, Routine enoxaparin (LOVENOX) injection 30 mg (CANCELED) 899 ( Given - Provider: Sylvain Arboleda RN)2106 (Given - Provider: Julia Taylor, MIGUELITO) 09 (Given - Provider: Yolie Bearden, MIGUELITO)2100 (Given - Provider: Isis [place] RN) 0824 (Given - Provider: Ashley Sanders RN) 30 mg, Subcutaneous, EVERY 12 HOURS SCHE DULED (2 times per day), First dose on Thu08/29/13 at 1445, Until Discontinued, Routine erythromycin (ERYTHROCIN) 250 mg in sodium chloride 0. 9% 105 mL (CANCELED) 899 (Given - Provider: Sylvain Arboleda RN)2103 (Given - Provider: Julia Taylor RN) 09 (Given - Provider: Yolie Bearden RN) 250 mg, Intravenous, EVERY 12 HOURS SCHE DULED (2 times per day), First dose on Thu08/29/13 at 0900, Until Discontinued, for 60 Minutes, Indication for (Active or Suspected): Other (See Comment) esomeprazole (NEXIUM) injection 40 mg (CANCELED) 899 (Given - Provider: Sylvain Arboleda RN) 899 (Given - Provider: Yolie Bearden RN) 0824 (Given - Provider: Ashley Sanders RN) 40 mg, Intravenous, DAILY, First dose on Thu08/28/13 at 1400, Until Discontinued, Routine fluconazole (DIFLUCAN) tablet 200 mg (CANCELED) 823 (Given - Provider: Ashley Sanders RN) 200 mg, Oral, DAILY, First dose on Thu at 0900, Until Discontinued, Routine fluconazole 200mg in sodium chloride 0.9% 100mL (CANCE LED) 0658 (Given - Provider: Julia Taylor, MIGUELITO) 0730 (Given - Provider: Yolie Bearden RN) 200 mg, Intravenous, EVERY 24 HOURS, Fir st dose on Thu08/29/13 at 0730, Until Discontinued, for 60 Minutes, Indication for (Active or Suspected): Prophylaxis, Restricted Antibiotic: Please indicate the most appropriate choice: Pre-approved I ndication (State the indication in Comments field) ganciclovir (CYTOVENE) 475 mg in sodium chloride 0.9% 109.5 mL (CANCELED) 0900 (Given - Provider: Sylvain Arboleda RN) 0900 (Given - Provider: Yolie Bearden RN) 0920 (Given - Provider: Ashley Sanders RN) 475 mg, Intravenous, EVERY 24 HOURS, Fir st dose on Thu08/29/13 at 0900, Until Discontinued, for 60 Minutes, Creatinine Clearance greater than or equal to 70 mL/min. Dose rounded per Dose Rounding Polic y, Indication for (Active or Suspected): Prophylaxis lactated ringers 1,000 mL IV bolus (COMPLETED) 929 (Given - Provider: Yolie Bearden RN) Intravenous, ONCE, 1 dose, Vanessa 09/01/13 at 0930 levothyroxine (SYNTHROID) tablet 200 mcg (CANCELED) 05 37 (Given - Provider: Julia Taylor RN) 0514 (Given - Provider: Julia Taylor RN) 0600 (Give n - Provider: Isis London RN) 200 mcg, Oral, EVERY MORNING, First dose on Thu08/28/13 at 0600, Until Discontinued, Routine magnesium oxide (MAG-OX) tablet 400 mg (CANCELED) 919 (Given - Provider: Ashley Sanders RN) 400 mg, Oral, 2 TIMES DAILY, First dose on Thu09/02/13 at 0900, Until Discontinued, Routine magnesium sulfate 1g in dextrose 5% 100mL (COMPLETED) 919 (Given - Provider: Ashley Sanders RN - Comment: dose not recieved until 0910) 1 g, Intravenous, ONCE, 1 dose, Thu09/02/13 at 0800, for 60 Minut es mycophenolate (CELLCEPT) capsule 750 mg (CANCELED) 080 0 (Given - Provider: Sylvain Arboleda RN)2133 (Given - Provider: Julia Taylor RN - Comment: med was not available at due time) 0800 (Given - Provider: Yolie watts RN)1999 (Given - Provider: Isis London RN) 0824 (Given - Provider: Ashley Sanders RN) 750 mg, Oral, 2 TIMES DAILY, First dose on 08/28/13 at 1900, Until Discontinued, Routine piperacillin-tazobactam (ZOSYN) 4.5 g in sodium chlori de 0.9% 120 mL (CANCELED) 0354 (Given - Provider: Julia Taylor, MIGUELITO - Comment: med was not available at due time)0800 (Given - Provider: Sylvain Arboleda, MIGUELITO)1400 (Given - Provider: Sylvain Arboleda, RN)2014 (Given - Provider: Ni Whyte RN) 0300 (Given - Provider: Julia Taylor, MIGUELITO)0800 (Given - Provider: Yolie Bearden RN)1400 (Given - Provider: Yolie Bearden RN)1999 (Given - Provider: Isis London RN) 0200 (Given - Provider: Isis London, Flavia Noel)0824 (Given - Provider: Ashley Sanders RN) 4.5 g, Intravenous, EVERY 6 HOURS, First dose on 08/28/13 at 1300, Until Discontinued, for 30 Minutes, Indication for (Active or Suspected): Prophylaxis polyethylene glycol (MIRALAX) packet 17 g 0930 (Not Given - Provider: Yolie Bearden RN - Reason: Patient/family refused) 0900 (Not Given - Provider: Ashley Sanders RN - Reason: See comment - Comment: pt having loose BMs) 17 g, Oral, DAILY, First dose on 09/01 at 0930, Until Discontinued, Routine potassium chloride (K-DUR/KLOR-CON) extended release tablet 40 mEq (COMPLETED) 0945 (Given - Provider: Yolie Bearden RN)1345 (Given - Provider: Yolie Bearden RN)1745 (Given - Provider: Yolie Bearden RN) 40 mEq, Oral, EVERY 4 HOURS, 3 doses, Fi rst dose on Vanessa 09/01/13 at 0945, Last dose on Vanessa 09/01/13 at 1745, 20 mEq tablet may be dissolved in water for administration, Routine potassium chloride (K-DUR/KLOR-CON) extended release tablet 40 m Eq (CANCELED) 0824 (Given - Provider: Ashley Sanders RN) 40 mEq, Oral, 3 TIMES DAILY WITH MEALS, First dose on Thu09/02/13 at 0800, Until Discontinued, 20 mEq tablet may be dissolved in water for administration, Routine potassium phosphate (monobasic) (K-PHOS) tablet 500 mg (CANCELED ) 1345 (Given - Provider: Ashley Sanders RN - Comment: medication not available until 1340) 500 mg, Oral, 4 TIMES DAILY WITH MEALS & NIGHTLY, First dose on Thu09/02/13 at 1200, Until Discontinued, Dissolve tablets in 6-8 oz of water; for best results, soak tablets in water for 2-5 minutes, then stir and give to patient., Routine sodium chloride 0.9% 1,000 mL IV bolus (CANCELED) 1035 (Given - Provider: Ashley Sanders RN) Intravenous, DAILY, First dose on Thu09/02/13 at 1045, Until Disc ontinued sulfamethoxazole-trimethoprim (BACTRIM DS) 800-160 mg per tablet 1 tablet 1345 (Given - Provider: Ashley Sanders RN - Comment: medication not available until 1340) 1 tablet, Oral, THREE TIMES WEEKLY (Once per day on Thu), First dose on Thu09/02/13 at 1200, Until Discontinued, Routine tacrolimus (PROGRAF) capsule 2 mg (CANCELED) 0900 (Giv en - Provider: Sylvain Arboleda RN)210 (Given - Provider: Julia Taylor RN) 0900 (Given - Provider: Yolie Bearden RN)2100 (Given - Provider: Isis London RN) 0824 (Given - Provider: Ashley Sanders RN) 2 mg, Oral, 2 TIMES DAILY, First dose on Thu08/29/13 at 0900, Until Discontinued, Routine Continuous Medication Order 08/31/2013 09/01/2013 09/02/2013 sodium chloride 0.45% infusion (CANCELED) 0652 (New Ba g - Provider: Julia Taylor, MIGUELITO)2019 (New Bag - Provider: Ni Whyte RN) 0701 (Stopped - Provider: Julia Taylor RN) 75 mL/hr, at 75 mL/hr, Intravenous, CONT INUOUS, Starting 08/30/13 at 1130, Until Vanessa 09/01/13 at 0652 PRN Medication Order 08/31/2013 09/01/2013 09/02/2013 acetaminophen (TYLENOL) tablet 650 mg 14 37 (Given - Provider: Yolie Bearden RN)2053 (Given - Provider: Isis London RN) 0924 (Given - Provider: Ashley Sanders RN) 650 mg, Oral, EVERY 4 HOURS PRN, Startin g 08/28/13 at 1335, Until Thu09/02/13 at 1555, Pain, Fever. if oral temperature greater than 38.5 Centigrade, Give 30 minutes prior to administration of thymoglobulin., Routine HYDROmorphone (DILAUDID) tablet 2-4 mg 0927 (Given - P rovider: Sylvain Arboleda RN)1352 (Given - Provider: Sylvain Arboleda RN)1926 (Given - Provider: Sylvain Arboleda RN) 0036 (Given - Provider: Julia Taylor RN)0343 (Given - Provider: Julia Taylor RN)0655 (Given - Provider: Julia Taylor RN)0955 (Given - Provider: Yolie Bearden RN)1436 (Given - Provider: Yolie Bearden RN) 0221 (Given - Provider: Isis London, Flavia Noel)0924 (Given - Provider: Ashley Sanders RN) 2-4 mg, Oral, EVERY 3 HOURS PRN, Startin g 08/31/13 at 0832, Until Thu09/02/13 at 1555, Pain, Routine 1900 (Given - Provider: Na Bearden RN)2228 (Given - Provider: Isis London RN) naproxen sodium (ANAPROX) tablet 550 mg (CANCELED) 1846 (Given - Provider: Yolie Bearden RN) 550 mg, Oral, 2 TIMES DAILY PRN, Startin g Vanessa 09/01/13 at 1730, Until Thu09/02/13 at 1555, Pain, take with food or milk, Routine ondansetron (ZOFRAN) injection 4-8 mg (CANCELED) 1701 (Given - Provider: Anna Montalvo, MIGUELITO)2008 (Given - Provider: Ni Whyte, RN) 1501 (Given - Provider: Yolie Bearden, MIGUELITO)1846 (Given - Provider: Yolie Bearden, MIGUELITO) 0947 (Given - Provider: Ni Barraza RN) 4-8 mg, Intravenous, EVERY 8 HOURS PRN, Starting 08/29/13 at 0738, Until 09/02/13 at 1555, Nausea, Routine prochlorperazine (COMPAZINE) injection 5 mg (CANCELED) 0036 (Given - Provider: Julai Taylor RN) 5 mg, Intravenous, EVERY 30 MIN PRN, 2 d oses, Starting 08/28/13 at 1335, Until Vanessa 09/01/13 at 0036, Nausea, May repeat in 30 minutes if no relief from previous dose. HOLD if patient is sedated. Maximum dose is 40 mg in 24 hours., Routine traMADol (ULTRAM) tablet 50 mg (CANCELED) 184 (Given - Provider: Yolie Bearden RN) 50 mg, Oral, EVERY 6 HOURS PRN, Starting Vanessa 09/01/13 at 1731, Until Thu09/02/13 at 1555, Pain, Routine documented in this encounter Care Teams Household Coordinator Relationship Specialty Start Date End Date Anna Dent MD PCP - General 12/03/10 [address] [place] [address] documented as of this encounter
--- OUTSIDE RECORDS SUMMARY | 2022-03-13 18:34 | XMS_ITS | Encounter Summary ---
:1965 Author Organization [facility] [place] [address] Care Team Providers Name Role Phone Anna Mullen MD Primary Care Provider Encounter Details Date Type Department Care Team Description 08/10/2013 External Results Neurology at [facility] [place] Matheus Musa MD [facility] [place] [address] NEUROLOGY DEPT. [phone] [place], [place] [address] (Wo rk) Social History Tobacco [...] Name Priority Date/Time Associated Diagnosis Comme nts EMG SCAN Routine 08/10/2013 documented in this encounter Results Scan Doc: EMG (08/10/2013) Narrative This result has an attachment that is no t available. Matheus Musa MD MEDIA MGR SCAN EXT ORDR/RSLT documented in this encounter Visit Diagnoses Not on filedocumented in this encounter Care Teams Letterpress Printing Machinist Relationship Specialty Start Date End Date Anna Mullen MD PCP - General 12/03/10 [address] [place] [address] documented as of this encounter
--- OUTSIDE RECORDS SUMMARY | 2022-03-13 18:34 | XMS_ITS | Encounter Summary ---
:1965 Author Organization [facility] Address [address] [place] [address] Care Team Providers Name Role Phone Anna Mullen MD Primary Care Provider Reason for Visit Reason Comments Pancreas Transplant Pre-evaluation Encounter Details Date Type Department Care Team Description 05/16/2013 Office Visit Solid Organ Eriberto Melgar [place] [facility] [place] Arlyn evaluation for [facility] Drive (Primary Dx) [place], [place] [address] [place] [address] [phone] Social History Tobacco Use Types Packs/Day Years Used Date Never Smoker Smokeless Tobacco: Never Used Alcohol Use Standard Drinks/Week Comments No 0 (1 standard drink = 0.6 oz pure alcoho l) history of abuse, stopped 1996 Sex Assigned at Date Recorded Male 05/29/2021 11:28 PM EDT documented as of this encounter Last Filed Vital Signs Vital Sign Reading Time Taken Comments Blood Pressure 122/73 05/16/2013 1:57 PM EDT Pulse 56 05/16/2013 1:57 PM EDT Temperature 36.6 ??C (97.9 ??F) 05/16/2013 1:57 PM EDT Respiratory Rate - - Oxygen Saturation - - Inhaled Oxygen Concentration - - Weight 102.4 kg (225 lb 12.8 oz) 05/16/2013 1:57 PM EDT Height 182.9 cm (6') 05/16/2013 1:57 PM EDT Body Mass Index 30.62 05/16/2013 1:57 PM EDT documented in this encounter Progress Notes Eriberto Melgar MD - 07/13/2013 4:16 PM EST Transplant Follow Up Richard Hsu [id number] TRANSPLANT HX: Pt here for continued evaluation of pancreas transplant. He has blood type O and continues to have aPRA of 0%. MEDICAL HX: Patient Active Problem List Diagnoses Code ??? LBP radiating to right leg 724.2BU ??? Diabetes mellitus 250.00A ??? Stroke-like symptoms 781.99EN ??? Hypertension 401.9AJ ??? Edema 782.3 ??? Gastroparesis due to DM 250.60JD ??? Migraine 346.90A History of Present Illness: 47 y.o. male presented for ongoing evaluation for pancreas transplant as a member of our wait list. He continues having recurrent hypoglycemia episodes, as many as 1-2 per week. Patient is under Dr. Coles's care for diabetics management. He is currently on insulin pump. He otherwise feels well and has good exercise capacity with the exception of his right sided lumbar radiculopathy for which he received injections by the Pain Service. He utilizes an insulin pump under the direction of Denise Coles MD. ROS: Positive for hypoglycemia, seizures with them when RBS falls below 30 mg/dL. Denies fevers, chills, nausea, vomiting, diarrhea, abd pain, chest pain, sob. Medications: amlodipine (NORVASC) 2.5 mg tablet; Diabetic Supplies, Miscellan. Misc; levothyroxine (SYNTHROID) 200 mcg tablet; promethazine (PHENERGAN) 25 mg suppository; sildenafil (VIAGRA) 100 mg tablet; insulin aspart (NOVOLOG) 100 unit/mL vial injection; glucagon, human recombinant, 1 mg injection; divalproex (DEPAKOTE ER) 250 mg 24 hr tablet; ondansetron (ZOFRAN) 4 mg tablet; magnesium oxide (MAG-OX) 400 mg tablet trimethobenzamide (TIGAN) 300 mg capsule; citalopram (CELEXA) 20 mg tablet; naproxen sodium (ANAPROX) 550 mg tablet; verapamil (CALAN-SR) 240 mg CR tablet; carvedilol (COREG) 3.125 mg tablet; losartan (COZAAR) 100 mg tablet; pravastatin (PRAVACHOL) 40 mg tablet; traMADol (ULTRAM) 50 mg tablet; hydrOXYzine (VISTARIL) 25 mg capsule; hydrochlorothiazide (HYDRODIURIL) 25 mg tablet; CALCIUM CARBONATE (CALCIUM 600 ORAL) GLUCOSAMINE HCL/CHONDRO ROGERS A (GLUCOSAMINE-CHONDROITIN ORAL); multivitamin (THERAGRAN) tablet; aspirin 325 mg tablet; pantoprazole (PROTONIX) 40 mg tablet; [place]-3 Fatty Acids-Vitamin E (FISH OIL) 1,000mg Cap; Acetone, Urine, Test (ACETONE, URINE, TEST) Strp Allergies / ADRs: Allergies Allergen Reactions ??? Simvastatin ??? Nexium (Esomeprazole Magnesium) Diarrhea Any acid reflux medication causes severe diarrhea ??? Prilosec (Omeprazole Magnesium) Diarrhea PHYSICAL EXAM: Filed Vitals: 05/16/13 1357 BP: 122/73 Pulse: 56 Temp: 36.6 ??C (97.9 ??F) Height: 182.9 cm (6') Weight: 102.422 kg (225 lb 12.8 oz) Appearance - Alert, Comfortable. Skin - No exanthem. HEENT - Mucous membranes moist. Chest: Lungs clear to ausculatation w/o wheezes/ rhonchi/ crackles. Heart - S1 and S2 clear w/o murmur, gallop, or rub. JVP not elevated. Abd - Soft. + BS. No bruit. Non tender. No organomegaly. Ext - Warm. No cyanosis. trace dependent edema. Impression/ Plan Continues to be an outstanding candidate for a pancreas tx. That said he will have a substantial wait due to he fact the average wait time exceeds 2 years. He will continue to maintain the excellent health he currently is exhibiting and notify us of any changes in his health. RTC 6 months. Rhoda Knox RN - 05/16/2013 2:01 PM EDT Mr. Richard Hsu was seen by the transplant team today (coordinator, Dr. Melgar & fountain worker) for her transplant evaluation review, patient is active on the Pancreas transplant wait list. Patient is blood type O, PRA is 0%. As of today, patient has 455 days on the [facility] wait list. Dialysis Information Unit: Pancreas patient Access: Dry Weight: Dialysis Issues: Medical Issues Since Last Transplant Evaluation: Patient has 1-2 episodes of hypoglycemic unawareness per day, is very tuned into this and can usually pick this up with his behavior or symptoms.He has not been hospitalized for these episodes as his usually picks up on his symptoms and cantreat him with sugar accordingly ( usually drinks a soda, candy bar, etc- glucagon does not work forhim). Status of Evaluation: CXR: October, EKG: October, Transplant Labs: October, Stress Test: [place]uled for , [place] [facility] [place]: 2005 Pap: n/a Mammo: n/a Dental: Just had cleaning & dental x-rays done one month ago at [facility]-will send dental form Date of last tissue typing: October, Living Donors: n/a Patient Teaching: UNOS report reviewed SRTR data review Process of being called in for transplant Post transplant care including home care, home supplies needed, return visits to clinic, discharge meds Carrying pager Monthly PRA lab work Immunizations- Needs Hep B booster, Hep BsAB is negative- pt aware Follow Up Items: Patient made aware of the following items needed for this year's workup: Flu vaccine, Hep B booster, eye exam. Will fax dental form to [facility]. documented in this encounter Plan of Treatment Not on filedocumented as of this encounter Visit Diagnoses Diagnosis Pre-transplant evaluation for pancreas t ransplant - Primary Other specified pre-operative examinatio n documented in this encounter Care Teams Territory Account Representative Relationship Specialty Start Date End Date Anna Mullen MD PCP - General 12/03/10 [address] [place] [address] documented as of this encounter
--- OUTSIDE RECORDS SUMMARY | 2022-03-13 18:34 | XMS_ITS | Encounter Summary ---
:1965 Author Organization [facility] [place] [address] Care Team Providers Name Role Phone Anna Mullen MD Primary Care Provider Encounter Details Date Type Department Care Team Description 06/06/2013 Abstract Solid Organ Transplant at [place], Sonja Adame, [place] [address] Social History Tobacco Use Types Packs/Day [...] on filedocumented in this encounter Care Teams Cement Car Dumper Relationship Specialty Start Date End Date Anna Mullen MD PCP - General 12/03/10 [address] [place] [address] documented as of this encounter
--- OUTSIDE RECORDS SUMMARY | 2022-03-13 18:34 | XMS_ITS | Encounter Summary ---
:1965 Author Organization [facility] [place] [address] Care Team Providers Name Role Phone nAna Mullen MD Primary Care Provider Encounter Details Date Type Department Care Team Description 05/12/2013 External Results [place] [address] Social History Tobacco Use Types Packs/Day [...] Procedure Name Priority Date/Time Associated Diagnosis Comme [facility] MONTHLY PRA - PANCREAS Routine 05/06/2013 documented in this encounter Results Transplant: Monthly PRA (Pancreas) - EXTERNAL collections (05/06/2013) Narrative This result has an attachment that is no t available. Historical Provider CHEMISTRY ORDERABLES documented in this encounter Visit Diagnoses Not on filedocumented in this encounter Care Teams Board Certified Behavioral Analyst Relationship Specialty Start Date End Date Anna Mullen MD PCP - General 12/03/10 [address] [place], [place] [id number] documented as of this encounter
--- OUTSIDE RECORDS SUMMARY | 2022-03-13 18:34 | XMS_ITS | Encounter Summary ---
:1965 Author Organization [facility] [place] [address] Care Team Providers Name Role Phone Anna Mullen MD Primary Care Provider Encounter Details Date Type Department Care Team Description 06/23/2013 Follow-Up Neurology at [facility] [place] Geoffrey Martinez Cubital tunnel syndrome on r ight; [facility] MD Brigitte Diabetic [place] [address] NEUROLOGY DEPT. [phone] [place], [place] [address] Social History Tobacco Use Types [...] Sign Reading Time Taken Comments Blood Pressure 109/62 06/23/2013 1:47 PM EDT Pulse 57 06/23/2013 1:47 PM EDT Temperature - - Respiratory Rate - - Oxygen Saturation - - Inhaled Oxygen Concentration - - Weight 93.4 kg (206 lb) 06/23/2013 1:47 PM EDT Height 182.9 cm (6') 06/23/2013 1:47 PM EDT Body Mass Index 27.94 06/23/2013 1:47 PM EDT documented in this encounter Progress Notes Geoffrey Martinez MD - 06/23/2013 1:43 PM EDT [facility] Stroke [facility] [place] [address] t: [phone] / f: [phone] Date of Appointment: 06/23/2013 Patient: Richard Hsu : 1965 Patient ID: This 47 y.o. 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 He also has migraine headaches and a lumbar radiculaopthy. When I last saw him, his right LE discomfort was his major problem. I presumed this is related to a lumbar radiculopathy ? L5 Given duration of symptoms, we obtained an MRI and [facility] Had LESI and no effect, had PTx and had stretching of back and it helped for a limited time. PCP gave him R arm tingles constantly. 2 months ago was using chainsaw for several hours and tingling started in R UE started but no changein function. Tingling increases sometimes like with certain movements and in bed leaning on it. Got script for an aversion table but hasn't found out where yet. Unable to handle Neurontin or narcotics before. In the interim since last clinic visit, the patient has been well. There is no report of symptoms suggestive of recurrent TIA/Stroke. Medications are being taken as prescribed and without adverse symptoms. Naproxen twice a day or gets sore. Some GI discomfort ? due to constipation or gastroparesis. Taking colace and not much miralex. Had CTR on right about 20 years ago in [place]. Patient Active Problem List Diagnosis Code ??? LBP radiating to right leg 724.2 ??? Diabetes mellitus 250.00 ??? Stroke-like symptoms 781.99 ??? Hypertension 401.9 ??? Edema 782.3 ??? Gastroparesis due to DM 250.60, 536.3 ??? Migraine 346.90 Allergies Allergen Reactions ??? Nexium (Esomeprazole Magnesium) Diarrhea Any acid reflux medication causes severe diarrhea ??? Prilosec (Omeprazole Magnesium) Diarrhea ??? Reglan (Metoclopramide Hcl) TD ??? Simvastatin Outpatient Prescriptions Marked as Taking for the 06/23/13 encounter (Follow-Up) with Geoffrey Martinez MD Medication Sig Dispense Refill ??? pantoprazole (PROTONIX) 40 mg tablet Take 40 mg by mouth 2 times daily. ??? amlodipine (NORVASC) 2.5 mg tablet Take 2.5 mg by mouth daily. ??? Diabetic Supplies, Miscellan. Misc Fax form to [facility] for testing supplies 10 times per [id number] each 12 ??? levothyroxine (SYNTHROID) 200 mcg tablet Take 1 tablet by mouth daily. 90 tablet 4 ??? promethazine (PHENERGAN) [address] 25 mg rectally daily as needed. ??? sildenafil (VIAGRA) 100 mg tablet Take 1 tablet by mouth as needed for Erectile Dysfunction. 90 day supply Dx code :250.60 60 tablet 6 ??? insulin aspart (NOVOLOG) 100 unit/mL vial injection Inject 80 Units subcutaneously daily. Approximally 80 units subcutaneous by pump. 90 mL 3 ??? glucagon, human recombinant, 1 mg injection Inject 1 mL as directed as needed. 2 each ??? divalproex (DEPAKOTE ER) 250 mg 24 hr tablet Take 1 tablet by mouth daily. Call to adjust in 1 week. 90 tablet 3 ??? ondansetron (ZOFRAN) 4 mg tablet Take 4 mg by mouth as needed. ??? magnesium oxide (MAG-OX) 400 mg tablet Take 400 mg by mouth 4 times daily. ??? trimethobenzamide (TIGAN) 300 mg capsule Take 300 mg by mouth 2 times daily. ??? citalopram (CELEXA) 20 mg tablet Take 40 mg by mouth daily. ??? naproxen sodium (ANAPROX) 550 mg tablet Take 1 tablet by mouth 2 times daily as needed (for breakthrough headaches). 60 tablet 5 ??? verapamil (CALAN-SR) 240 mg CR tablet Take 240 mg by mouth 2 times daily. ??? carvedilol (COREG) 3.125 mg tablet Take 3.125 mg by mouth 2 times daily (with meals). ??? losartan (COZAAR) 100 mg tablet Take 100 mg by mouth daily. ??? pravastatin (PRAVACHOL) 40 mg tablet Take 40 mg by mouth daily. ??? traMADol (ULTRAM) 50 mg tablet Take 100 mg by mouth 2 times daily. ??? Long Bottom-3 Fatty Acids-Vitamin E (FISH OIL) 1,000 mg Cap Take 5,000 mg by mouth daily. ??? Acetone, Urine, Test (ACETONE, URINE, TEST) Strp by [facility].(Non-Drug; Combo Route) route. ??? hydrOXYzine (VISTARIL) 25 mg capsule Take 25 mg by mouth 2 times daily as needed. For headaches ??? hydrochlorothiazide (HYDRODIURIL) 25 mg tablet Take 25 mg by mouth daily. ??? CALCIUM CARBONATE (CALCIUM 600 ORAL) Take 1,200 mg by mouth daily. ??? GLUCOSAMINE HCL/CHONDRO ROGERS A (GLUCOSAMINE-CHONDROITIN ORAL) Take 3 tablets by mouth daily. ??? multivitamin (THERAGRAN) tablet Take 1 tablet by mouth daily. ??? aspirin 325 mg tablet Take 325 mg by mouth daily. Exam: Filed Vitals: 06/23/13 1347 BP: 109/62 Pulse: 57 Height: 182.9 cm (6') Weight: 93.441 kg (206 lb) Well appearing patient, nontoxic. Heart regular. No edema lower extremities. No wheezing or dyspnea noted. No rash, thyromegaly. Mood euthymic. Alert, oriented; attentive; speech fluent/articulate, no dysarthria, paraphasic errors or martin aphasia. No facial weakness or dysarthria. No pronator drift or tremor. Gait normal. Has atrophy of the left first DI and has a Tinel's had the right cubital tunnel. Data reviewed: None new Clinical impression and recommendations: Neurologically stable except for probable right cubital tunnel syndrome. This was likely acutely worsened by his activities using the chainsaw. Set up EMG. Wear heel-bow protection, may need referral to Ortho. Bernie Long for migraine prophylaxis, I asked him to let PCP and Dr Melgar about his Naproxen use and warned him about the possible toxicity of this. 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
--- OUTSIDE RECORDS SUMMARY | 2022-03-13 18:34 | XMS_ITS | Encounter Summary ---
:1965 Author Organization [facility] Address [facility] [address] [place] [address] Care Team Providers Name Role Phone Anna Mullen MD Primary Care Provider Encounter Details Date Type Department Care Team Description 08/10/2013 Office Visit Neurology at [facility] [place] Matheus Musa MD [facility] [place] [address] Ulnar neuropathy of [facility] CallerDara MD [facility] [place] [address] (Primary Dx) [place] [id number] Social History Tobacco Use Types Packs/Day Years Used Date Never Smoker Smokeless Tobacco: Never Used Alcohol Use Standard Drinks/Week Comments No 0 (1 standard drink = 0.6 oz pure alcoho l) history of abuse, stopped 1996 Sex Assigned at Date Recorded Male 05/29/2021 11:28 PM EDT documented as of this encounter Last Filed Vital Signs Vital Sign Reading Time Taken Comments Blood Pressure 116/62 08/10/2013 8:51 AM EST Pulse 60 08/10/2013 8:51 AM EST Temperature - - Respiratory Rate - - Oxygen Saturation - - Inhaled Oxygen Concentration - - Weight 95.3 kg (210 lb) 08/10/2013 8:51 AM EST Height 182.9 cm (6') 08/10/2013 8:51 AM EST Body Mass Index 28.48 08/10/2013 8:51 AM EST documented in this encounter Progress Notes Dara Parkinson MD - 08/10/2013 9:45 AM EST NEUROLOGY CLINIC [facility] [place] [id number] Facsimile: 08/10/2013 Electrodiagnostic Study Patient: Richard Hsu : 1965 Referring provider: Geoffrey Martinez MD [facility] NEUROLOGY DEPT. [place] [id number] Reason for Referral: We are seeing this patient for evaluation of hand numbness and weakness and possible cubital tunnel syndrome. This is a procedure only visit. Richard Hsu is a 47 y.o. year old R-handed male with history of diabetes and childhood stroke who presents with 2-3 months of increasing weakness and paresthesias affecting the right hand. Proceedparesthesias or predominantly in the fourth and fifth digits and extend up into the forearm. He has noted atrophy of the FDI muscle. He does have a history of right carpal tunnel syndrome for which she underwent surgical release 20 years ago. Physical exam findings were notable for trace weakness of interosseous strength, atrophy of FDI, tenderness over the cubital tunnel on the right. Objective: NCS: R Median nerve: There continues to be some evidence of median nerve entrapment. Distal motor latencywas delayed at 5.6 ms. Conduction velocity was normal. F waves were mildly prolonged. Sensory responses showed a slowed conduction velocity in the 30s. R Ulnar nerve: Sensory study was remarkable for a slowed conduction velocity of 39 m/s. Motor conduction studies was remarkable for a significantly prolonged distal motor latency of 4.7 ms, amplitude drop over the elbow, from 7.2 mV at the wrist to 5 mV below the elbow. Conduction velocity also dropped over the elbow, from 50 m/s elbow to wrist to 38 m/s over the elbow. F waves were prolonged at 34.8ms. EMG: FDI and ADM both showed decreased recruitment 40% with neuropathic motor units. A complex repetitive discharge was observed in FDI. There is slight decrease in recruitment and some neuropathic motor units in APB. There is no active denervation or chronic neuropathic changes in flexor carpi ulnaris. Assessment and Plan: Richard Hsu is a 47 y.o. year old male with right hand paresthesias and atrophy in ulnar distribution. Electrodiagnostic studies are remarkable for fairly significant ulnar nerve entrapment at [facility]. Plan: ?? Consider orthopedics referral ?? Conservative measures, including elbow splinting and padding at night to minimize prolonged flexion/extension, were discussed. Heelbo pad Rx provided. ?? Consider referral to occupational therapy for other nonsurgical modes of treatment which might behelpful. Dara Parkinson MD, MPH Neurophysiology fellow Neurology Staff Note I have reviewed the above fellows's history during the visit and I agree with the details as written. My physical examination confirms the fellow's findings. The assessment and plan were formulated in discussion with me at the time of the visit and I agree with them as documented. I participated in the EDX studies. 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
--- OUTSIDE RECORDS SUMMARY | 2022-03-13 18:34 | XMS_ITS | Encounter Summary ---
:1965 Author Organization [facility] [place] [address] Care Team Providers Name Role Phone Anna Mullen MD Primary Care Provider Encounter Details Date Type Department Care Team Description 05/16/2013 Follow-[place] [address] Social History Tobacco Use Types Packs/Day [...] on filedocumented in this encounter Care Teams Asbestos Shingle Roofer Relationship Specialty Start Date End Date Anna Mullen MD PCP - General 12/03/10 [address] [place], [place] [address] documented as of this encounter
--- OUTSIDE RECORDS SUMMARY | 2022-03-13 18:34 | XMS_ITS | Encounter Summary ---
:1965 Author Organization [facility] [place] [address] Care Team Providers Name Role Phone Anna Mullen MD Primary Care Provider Encounter Details Date Type Department Care Team Description 05/19/2013 Hospital Encounter Non-Invasive CLINIC, DR [facility]YE Pre-tr ansplant Cardiology Lab Eriberto Phillips MD [facility] [place] [address] evaluation for [facility] [place] [address] Social History Tobacco Use Types Packs/Day Years Used Date Never Smoker Smokeless Tobacco: Never Used Alcohol Use Standard Drinks/Week Comments No 0 (1 standard drink = 0.6 oz pure alcoho l) history of abuse, stopped 1996 Sex Assigned at Date Recorded Male 05/29/2021 11:28 PM EDT documented as of this encounter Last Filed Vital Signs Vital Sign Reading Time Taken Comments Blood Pressure 126/70 05/19/2013 10:19 AM EDT Pulse 52 05/19/2013 10:19 AM EDT Temperature - - Respiratory Rate 20 05/19/2013 10:19 AM EDT Oxygen Saturation 96% 05/19/2013 10:19 AM EDT Inhaled Oxygen Concentration - - Weight 102.1 kg (225 lb) 05/19/2013 10:19 AM EDT Height 182.9 cm (6') 05/19/2013 10:19 AM EDT Body Mass Index 30.52 05/19/2013 10:19 AM EDT documented in this encounter Medications at Time of Discharge Medication Sig Dispensed Refills Start Date End Date sildenafil (VIAGRA) 100 Take 1 tablet by mouth as ne eded for Erectile Dysfunction. 90 day supply 60 tablet 6 09/14/2012 mg tablet Dx code :250.60 polyethylene glycol Take 17 g by mouth 14 each 0 09/02/19 14 (MIRALAX) 17 gram packet daily as needed for 4 30 days. Magnesium Gluconate 27 mg Take 1 tablet by 90 tablet 6 10/2013 (500 mg) Tab mouth 3 times daily. 4 acetaminophen (TYLENOL) Take 2 tablets by 30 tablet 0 09/02 325 mg tablet mouth every 4 hours 0 as needed (Pain, Fever. if oral temperature greater than 38.5 Centigrade). HYDROmorphone (DILAUDID) Take 1-2 tablets by 70 tablet 0 2 mg tablet mouth every 3 hours 4 as needed for Pain. sulfamethoxazole-trimetho Take 1 tablet by 13 tablet 5 10/2013 prim (BACTRIM DS) 800-160 mouth three times a 4 mg per tablet week for 30 days. potassium phosphate, Take 1 tablet by 90 tablet 6 4 monobasic, (K-PHOS) 500 mouth 4 times daily. 4 mg tablet CELLCEPT 250 mg capsule Take 2 capsules by 180 capsule 10/2013 mouth 2 times daily. 4 S/P Pancreas Transplant 08/28/2013 Dx V42.83 Diabetic Supplies, Fax form to [facility] 100 each 09/02/[address] [facility] for testing 4 supplies 10 times per day PROGRAF 1 mg capsule Take 2 capsules by 120 capsule 6 2013 mouth 2 times daily. 4 S/P Pancreas transplant V42.83 potassium phosphate, Take 1 tablet by 90 tablet 6 4 monobasic, (K-PHOS) 500 mouth 3 times daily. 4 mg tablet sulfamethoxazole-trimetho Take 1 tablet by 30 tablet 6 08/02 prim (BACTRIM;SEPTRA) mouth daily. 4 400-80 mg per tablet valGANCiclovir (VALCYTE) Take 2 tablets by 60 tablet 6 08/02 450 mg tablet mouth 2 times daily. 4 S/P Pancreas Transplant 08/28/2013 Dx V42.83 predniSONE (DELTASONE) 5 Take by mouth daily; 70 tablet 6 1 mg tablet 20mg [id number]; 3 Then 15mg x7days; Then 10mg x7days; Then 5mg x7days S/P Pancreas Transplant 08/28/2013 Dx V42.83 PROGRAF 1 mg capsule Take 2 capsules by 60 capsule 6 013 mouth 2 times daily. 4 S/P Pancreas Transplant 08/28/2013 Dx V42.83 CELLCEPT 250 mg capsule Take 3 capsules by 180 capsule 6 mouth 2 times daily. 4 S/P Pancreas Transplant 08/28/2013 Dx V42.83 DILTiazem (DILACOR XR) Take 1 capsule by 30 capsule 6 2012 120 mg 24 hr capsule mouth daily. 4 fluconazole (DIFLUCAN) Take 1 tablet by 10 tablet 6 013 200 mg tablet mouth daily. 4 potassium phosphate, Take 1 tablet by 90 tablet 6 3 monobasic, (K-PHOS) 500 mouth 3 times daily. 4 mg tablet Magnesium Gluconate 27 mg Take 1 tablet by 90 tablet 6 08/02 (500 mg) Tab mouth 3 times daily. 4 pantoprazole (PROTONIX) Take 1 tablet by 90 tablet 3 2012 40 mg tablet mouth daily. 4 amlodipine (NORVASC) 2.5 Take by mouth daily. 0 mg tablet 4 Diabetic Supplies, Fax form to [facility] 100 each 12 04/21/2013 [facility] for testing 4 supplies 10 times per day levothyroxine (SYNTHROID) Take 1 tablet by 90 tablet 4 01/29 200 mcg tablet mouth daily. 4 promethazine (PHENERGAN) Place rectally daily 0 25 mg suppository as needed. 4 insulin aspart (NOVOLOG) Inject 80 Units 90 mL 3 2011 100 unit/mL vial subcutaneously 4 injection daily. Approximally 80 units subcutaneous by pump. glucagon, human Inject 1 mL as 2 each 11 05/11/201209/02 recombinant, 1 mg directed as needed. 4 injection divalproex (DEPAKOTE ER) Take 1 tablet by 90 tablet 3 04/22 250 mg 24 hr mouth daily. Call to 4 tabletIndications: adjust in 1 week. Migraine ondansetron (ZOFRAN) 4 mg Take by mouth as 0 tablet needed. 4 magnesium oxide (MAG-OX) Take by mouth 4 0 400 mg tablet times daily. 4 trimethobenzamide (TIGAN) Take by mouth 2 0 300 mg capsule times daily. 4 citalopram (CELEXA) 20 mg Take 40 mg by mouth 0 tablet daily. 6 naproxen sodium (ANAPROX) Take 1 tablet by 60 tablet 5 12/30 550 mg tablet mouth 2 times daily 4 as needed (for breakthrough headaches). verapamil (CALAN-SR) 240 Take by mouth 2 0 mg CR tablet times daily. 4 carvedilol (COREG) 3.125 Take by mouth 2 0 mg tablet times daily (with 4 meals). losartan (COZAAR) 100 mg Take by mouth daily. 0 tablet 3 pravastatin (PRAVACHOL) Take 40 mg by mouth 0 40 mg tablet daily. 4 traMADol (ULTRAM) 50 mg Take 100 mg by mouth 0 tablet 2 times daily. 4 [place]ther[place]-3 Fatty Take 5,000 mg by 0 01/08/201109/06 Acids-Vitamin E (FISH mouth daily. 4 OIL) 1,000 mg Cap Acetone, Urine, Test by Misc.(Non-Drug; 0 (ACETONE, URINE, TEST) Combo Route) route. 4 Strp hydrOXYzine (VISTARIL) 25 Take by mouth 2 0 12/24 mg capsule times daily as 4 needed. hydrochlorothiazide Take 25 mg by mouth 0 (HYDRODIURIL) 25 mg daily. 3 tablet CALCIUM CARBONATE Take 1,200 mg by 0 12/24/2010 0 (CALCIUM 600 ORAL) mouth daily. 4 GLUCOSAMINE HCL/CHONDRO Take 3 tablets by 0 12/24 ROGERS A mouth daily. 4 (GLUCOSAMINE-CHONDROITIN ORAL) multivitamin (THERAGRAN) Take 1 tablet by 0 tablet mouth daily. 4 aspirin 325 mg tablet Take 325 mg by mouth 0 daily. 4 documented as of this encounter Plan of Treatment Not on filedocumented as of this encounter Procedures Procedure Name Priority Date/Time Associated Comments Diagnosis ECHOCARDIOGRAM Routine 05/19/2013 11:34 Pre-transplant Results for this PHARMACOLOGICAL STRESS AM EDT evaluation for pro cedure are in TEST (DSE) pancreas the results transplant section. documented in this encounter Results Echo pharm stress test (DSE) (05/19/2013 11:34 AM EDT) P athologist Signature EF 60 HEARTLAB SYSTEM Specimen (Source) Anatomical Location Collection Method / Collectio n Time Received Time / Laterality Volume 05/19/2013 Narrative [facility]ART[facility] SYSTEM - 05/19/2013 11:48 AM ED T Procedure: ? Stress Echocardiogram Patient: ? VAZQUEZ LEIGH W ? (Age): 1965(47) Med Rec#: ?[id number] ? Sex: ?M ? Site Loc: ?[facility] ? Ht / Wt: ??182.9(cm)/102(k Pt. Loc: ? Echo Lab ? BSA: ?2.28 Study Date: ?05/19/2013 ? Pt. Type: Outpatient Tape: ? Referring: Eriberto Melgar Insecticide Maker: Terrence Rubio Sales Solutions Representative: Nicky Olvera Nurse: Lacey Sánchez Diagnosis:CPT Code(s): ??Doppler LTD (93 321), ??ECG Interpretation (23138), ??Definity (10077OG), ??Stress Echo (19928), ??Color Doppler (97332), Indication(s): ??Pre-op cardiovascular e valuation Medication(s): ?? Rhythm: Sinus Stage ?HR ?BP Rest ? 52 ?126/70 ?? Low dose ? 53 ?137/68 ?? Peak ? 118 ? 178/70 ?? Recovery ? 84 ?144/73 ?? SUMMARY: 1. BASELINE: ??Left ventricular chamber size, wall thickness, global and segmental systolic function are within n ormal limits. Ejection fraction is estimated to be 60%. Right ventricula r chamber size, wall thickness, and systolic function are within normal limits. PASP is 18 mmHg + RAP. Doppler assessment is consistent with no rmal left sided filling pressure. ??Normal chamber dimensions. T here is borderline mitral valve prolapse of the anterior leaflet. EKG: n ormal sinus rhythm. 2. STRESS: ?? The peak dose of Dobutamin e infused was 40 ug/kg/min. The patient was administered 1.0 mg of Atrop ine. The patient performed hand squeezes to accelerate heart rate. ??Pea k YF=577 (67% MPHR despite holding carvedilol), peak BP =175/68 mmH g for a DP=20.5K. ??No symptoms, ischemic EKG changes or arrhythmias. ??A ll palencia increased in contractile thickening with no segmental wall motion abnormalties and EF increased from 60 to 75%. 3. IMPRESSION: Non diagnostic stress ech ocardiogram secondary to not attaining target HR, but no EKG or imagi ng evidence for ischemia at the level of stress attained, and moderate w orkload. ?? FINDINGS: Rest Left Ventricle ?Left ventricular chamber size, wal l thickness, global and segmental systolic function are within normal limi ts. Ejection fraction is estimated to be 60%. ?Doppler assessment is consistent w ith normal left sided filling pressure. Left Atrium ?The left atrium is probably normal in size. Right Ventricle ?Right ventricular chamber size, wa ll thickness, and systolic function are within normal limits. PASP is 18 mmHg + RAP. Right Atrium ?The right atrium is probably romain l in size. Aortic Valve ?The aortic valve is trileaflet. Th e leaflets are thin with normal excursion. There is no aortic stenosis o r regurgitation present. Mitral Valve ?The mitral valve leaflets appear n ormal. ?The mitral valve leaflets are mild ly thickened. ?There is borderline mitral valve p rolapse. anterior leaflet. ?There is trace mitral regurgitatio n present. Tricuspid Valve ?The tricuspid valve appears normal in structure and function. ?There is trace tricuspid regurgita tion present. Pericardium ?The pericardium appears normal and there is no evidence of a pericardial effusion. Aorta ?The ascending aorta is normal in s ize. Stress ?EKG: normal sinus rhythm. ?The patient's oxygen saturation wa s 97% on r/a ?The patient is taking a beta block er. held coreg for 24 hours ?The patient is on an LUPE inhibitor . Misc ?Other echo and stress findings as noted in report. ?Definity contrast (one 1.5 ml vial )was used to enhance endocardial definition. Excess contrast was discarde d. ?Stress echo, limited spectral Dopp ler, color Doppler and ECG interpretation performed. FINDINGS: Low dose Stress ?EKG: normal sinus rhythm. ?EKG: Premature ventricular contrac tions noted. FINDINGS: Peak Left Ventricle ?Global left ventricular systolic f unction appears hyperdynamic. Stress ?Maximum heart rate achieved was 11 8, which is 67% of the maximum(175 beats/min). ?The target heart rate was not achi eved. ?The peak dose of Dobutamine infuse d was 40 ug/kg/min. ?The patient was administered 1.0 m g of Atropine. ?The patient was administered 1 mg of Metoprolol during recovery. ?The patient performed hand squeeze s to accelerate heart rate. ?The patient did not express feelin gs of chest discomfort. ?The blood pressure response was no rmal. ?There were no arrhythmias. ?There were no significant ST segme nt changes. ?The echocardiographic response corey ws no evidence of ischemia, however at insufficient stress. ?EKG: sinus tachycardia. ?The patient's oxygen saturation wa s Misc ?A 20 gauge heplock was placed. ?An IV was placed in the patient's right arm. ?The IV site is dry and intact with no hematoma. ?Normal saline was given. 250cc NS infused ?The patient is alert and oriented x3. ?The procedure was explained to the patient and the patient understands the procedure, FINDINGS: Recovery Stress ?EKG: normal sinus rhythm. Wall Motion: Segment Name ?Rest ?Peak ? Base-Anteroseptal ?? Normal ?Normal ? Base-Anterior ? Normal ?Normal ? Base-Anterolateral ??Normal ?Normal ? Base-Posterolateral Normal ?Normal ? Base-Inferior ? Normal ?Normal ? Base-Inferoseptal ?? Normal ?Normal ? Mid-Anteroseptal ?Normal ?Normal ? Mid-Anterior ?Normal ?Normal ? Mid-Anterolateral ?? Normal ?Normal ? Mid-Posterolateral ??Normal ?Normal ? Mid-Inferior ?Normal ?Normal ? Mid-Inferoseptal ?Normal ?Normal ? Monroe-Septal ? Normal ?Normal ? Monroe-Anterior ? Normal ?Normal ? Monroe-Lateral ?Normal ?Normal ? Monroe-Inferior ? Normal ?Normal ? Monroe-Tip ?Normal ?Normal ? Chambers ?Value ?Units (Range) ? LV EF Est ? 60 ? % (55 to 80) ? IVSd 2D ? 0.7 ?cm ? LVIDd 2D ?5.3 ?cm ? PWd 2D ?0.7 ?cm ? LVIDs 2D ?3.6 ?cm ? LVFS 2D ? 32 ? % ? Asc Ao ?2.9 ?cm (2 to 3.5) ? Mitral Valve ?Value ?Units (Range) ? E peak ?0.79 ? m/sec ? E1 ?0.12 ? m/sec ? E/E1 ?7 ?ratio ? Tricuspid/Pulmonic Valves ?Value ?Units (Range) ? TR peak parth ? 2.1 ?m/sec ? This report has been electronically sign ed by: _ Saleem Edouard MD ? 05/19/2013 11:47: 40 Images reviewed and interpretation [facility] Procedure Note Saleem Edouard MD - 05/19/2013 Procedure: Stress Echocardiogram Patient: VAZQUEZ Guillen (Age): [birth year]) Med Rec#: [id number] Sex: M Site Loc: [facility] Ht / Wt: 182.9(cm)/102(k Pt. Loc: Echo Lab BSA: 2.28 Study Date: 05/19/2013 Pt. Type: Outpati ent Tape: Referring: Eriberto Melgar Insecticide Maker: Terrence Rubio Sales Solutions Representative: Nicky Olvera Nurse: Lacey Sánchez Diagnosis:CPT Code(s): Doppler LTD (9332 1), ECG Interpretation (18342), Definity (71585DL), Stress Echo (86817), Color Doppler (29957), Indication(s): Pre-op cardiovascular alyssia luation Medication(s): Rhythm: Sinus Stage HR BP Rest 52 126/70 Low dose 53 137/68 Peak 118 178/70 Recovery 84 144/73 SUMMARY: 1. BASELINE: Left ventricular chamber si ze, wall thickness, global and segmental systolic function are within n ormal limits. Ejection fraction is estimated to be 60%. Right ventricula r chamber size, wall thickness, and systolic function are within normal limits. PASP is 18 mmHg + RAP. Doppler assessment is consistent with no rmal left sided filling pressure. Normal chamber dimensions. The re is borderline mitral valve prolapse of the anterior leaflet. EKG: n ormal sinus rhythm. 2. STRESS: The peak dose of Dobutamine i nfused was 40 ug/kg/min. The patient was administered 1.0 mg of Atrop ine. The patient performed hand squeezes to accelerate heart rate. Peak XE=993 (67% MPHR despite holding carvedilol), peak BP =175/68 mmH g for a DP=20.5K. No symptoms, ischemic EKG changes or arrhythmias. All palencia increased in contractile thickening with no segmental wall motion abnormalties and EF increased from 60 to 75%. 3. IMPRESSION: Non diagnostic stress ech ocardiogram secondary to not attaining target HR, but no EKG or imagi ng evidence for ischemia at the level of stress attained, and moderate w orkload. FINDINGS: Rest Left Ventricle Left ventricular chamber size, wall thi ckness, global and segmental systolic function are within normal limi ts. Ejection fraction is estimated to be 60%. Doppler assessment is consistent with n ormal left sided filling pressure. Left Atrium The left atrium is probably normal in s ize. Right Ventricle Right ventricular chamber size, wall th ickness, and systolic function are within normal limits. PASP is 18 mmHg + RAP. Right Atrium The right atrium is probably normal in size. Aortic Valve The aortic valve is trileaflet. The anshul flets are thin with normal excursion. There is no aortic stenosis o r regurgitation present. Mitral Valve The mitral valve leaflets appear normal . The mitral valve leaflets are mildly th ickened. There is borderline mitral valve prolap se. anterior leaflet. There is trace mitral regurgitation pre sent. Tricuspid Valve The tricuspid valve appears normal in s tructure and function. There is trace tricuspid regurgitation present. Pericardium The pericardium appears normal and ther e is no evidence of a pericardial effusion. Aorta The ascending aorta is normal in size. Stress EKG: normal sinus rhythm. The patient's oxygen saturation was 97% on r/a The patient is taking a beta kody. h eld coreg for 24 hours The patient is on an LUPE inhibitor. Misc Other echo and stress findings as noted in report. Definity contrast (one 1.5 ml vial)was used to enhance endocardial definition. Excess contrast was discarde d. Stress echo, limited spectral Doppler, color Doppler and ECG interpretation performed. FINDINGS: Low dose Stress EKG: normal sinus rhythm. EKG: Premature ventricular contractions noted. FINDINGS: Peak Left Ventricle Global left ventricular systolic functi on appears hyperdynamic. Stress Maximum heart rate achieved was 118, wh ich is 67% of the maximum(175 beats/min). The target heart rate was not achieved. The peak dose of Dobutamine infused was 40 ug/kg/min. The patient was administered 1.0 mg of Atropine. The patient was administered 1 mg of Me toprolol during recovery. The patient performed hand squeezes to accelerate heart rate. The patient did not express feelings of chest discomfort. The blood pressure response was normal. There were no arrhythmias. There were no significant ST segment ch anges. The echocardiographic response shows no evidence of ischemia, however at insufficient stress. EKG: sinus tachycardia. The patient's oxygen saturation was Misc A 20 gauge heplock was placed. An IV was placed in the patient's right arm. The IV site is dry and intact with no h ematoma. Normal saline was given. 250cc NS infus ed The patient is alert and oriented x3. The procedure was explained to the hailey ent and the patient understands the procedure, FINDINGS: Recovery Stress EKG: normal sinus rhythm. Wall Motion: Segment Name Rest Peak Base-Anteroseptal Normal Normal Base-Anterior Normal Normal Base-Anterolateral Normal Normal Base-Posterolateral Normal Normal Base-Inferior Normal Normal Base-Inferoseptal Normal Normal Mid-Anteroseptal Normal Normal Mid-Anterior Normal Normal Mid-Anterolateral Normal Normal Mid-Posterolateral Normal Normal Mid-Inferior Normal Normal Mid-Inferoseptal Normal Normal Monroe-Septal Normal Normal Monroe-Anterior Normal Normal Monroe-Lateral Normal Normal Monroe-Inferior Normal Normal Monroe-Tip Normal Normal Chambers Value Units (Range) LV EF Est 60 % (55 to 80) IVSd 2D 0.7 cm LVIDd 2D 5.3 cm PWd 2D 0.7 cm LVIDs 2D 3.6 cm LVFS 2D 32 % Asc Ao 2.9 cm (2 to 3.5) Mitral Valve Value Units (Range) E peak 0.79 m/sec E1 0.12 m/sec E/E1 7 ratio Tricuspid/Pulmonic Valves Value Units (Range) TR peak parth 2.1 m/sec This report has been electronically sign ed by: _ Saleem Edouard MD 05/19/2013 11:47:40 Images reviewed and interpretation verif ied [facility] Eriberto Melgar MD ECHO ORDERABLES Performing Organization Address City/State/ZIP Code Phon e Number [facility]ARTLAB SYSTEM documented in this encounter Visit Diagnoses Diagnosis Pre-transplant evaluation for pancreas t ransplant Other specified pre-operative examinatio n documented in this encounter Administered Medications Inactive Administered Medications - up to 3 most recent administrations Medication Order MAR Action Action Date Dose Rate Site atropine injection 1 mg Given 05/19/2013 11:10 AM EDT 1 mg 15 mL/hr 1 mg, Intravenous, at 15 mL/hr, ONCE, 1 dose, On Vanessa 05/19/13 at 1145, Echo Lab (Intra-Procedure), Routine DOBUTamine 500 mg in sodium Given 05/19/2013 11:00 AM 4.084 mg/m in 122.5 mL/hr chloride 0.9% 250 mL (ECHO EDT LAB) 40 mcg/kg/min ? 102.1 kg (rounded to 122.5 mL/hr), Intravenous, ONCE, 1 dose, On Vanessa 05/19/13 at 1145, Echo Lab (Intra-Procedure) metoprolol (LOPRESSOR) injection 1 mg Given 05/19/2013 11:20 AM EDT 1 mg 1 mg, Intravenous, ONCE, 1 dose, On Vanessa 05/19/13 at 1145, Echo Lab (Intra-Procedure), Routine perflutren lipid microspheres (DEFINITY) Given 05/19/2013 11:00 AM EDT 1 mL injection 1 mL 1 mL, Intravenous, ONCE PRN, 1 dose, Starting on Vanessa 05/19/13 at 1135, Until Vanessa 05/19/13 at 1100, Other, for enhancement of sub-optimal echo images, Echo Lab (Intra-Procedure), Routine documented in this encounter Care Teams Gas Leak Tester Relationship Specialty Start Date End Date Anna Mullen MD PCP - General 12/03/10 [address] [place] [address] documented as of this encounter
--- OUTSIDE RECORDS SUMMARY | 2022-03-13 18:34 | XMS_ITS | Encounter Summary ---
:1965 Author Organization [facility] [place] [address] Care Team Providers Name Role Phone Anna Dent MD Primary Care Provider Encounter Details Date Type Department Care Team Description 08/28/2013 Surgery Main Operating Room Michael Keller MD @PANCREATIC TRANSPLANT [facility] TRANSPLANT [address] [id number] [phone] Social History Tobacco Use Types Packs/Day Years [...] TRANSPLANT SURGERY CLINIC DURING WORKING HOURS AT [phone], OR CALL AFTER CLINIC HOURS, WEEKENDS AND HOLIDAYS: ASK FOR THE SURGERY RESIDENT STITCHING MACHINE FEEDER OR OFFBEARER IF ANY OF THE ABOVE OCCUR. Activity [...] 1:45 PM Geoffrey Martinez MD LEB NEURO [address] [place] [address] CLIN You will need lab work before [...] Dx V42.83 Diabetic Supplies, Fax form to [facility] 100 each 12 09/02/2013 0 05/10/2014 Miscellan. [facility] medical for testing supplies 10 times per [...] mouth 0 10/18/2013 tablet 2 times daily. [place]-3 Fatty Take 5,000 mg by 0 01/08/201109/06 [...] home with VNA. Discharged summary faxed to [facility]. Message left with intake nurse. PICC line [...] TRANSPLANT NUTRITION Post-Transplant Discharge Diet Instruction This magnetic tape typewriter operator met with Richard Hsu a 47 year [...] URINE, TEST (ACETONE, URINE, TEST) STRP by [facility].(Non-Drug; Combo Route) route. AMLODIPINE (NORVASC) 2.5 MG TABLET Take by mouth daily. ASPIRIN 325 MG TABLET Take by mouth daily. CALCIUM CARBONATE (CALCIUM 600 ORAL) Take 1,200 mg by mouth daily. CARVEDILOL (COREG) 3.125 MG TABLET Take by mouth 2 times daily (with meals). CITALOPRAM (CELEXA) 20 MG TABLET Take 40 mg by mouth daily. DIABETIC SUPPLIES, MISCELLAN. [facility] Fax form to [facility] medical for testing supplies 10 times per [...] Jordyn Walsh, PharmD Laurie Alvarado, TeresaD Eriberto Barreto MD - 09/01/2013 7:53 AM EST [facility] NEPHROLOGY INPATIENT FOLLOW UP PATIENT: Richard Hsu : 1965 ROOM: [address] [place] [address]- ID: 47 y.o. male admitted for pancreas [...] w/Dr Talia Camarena MD Nephrology Fellow Pager# [phone] I examined the patient, reviewed all of [...] Pain controlled with PO medications and minimal EDGE GRINDER Subjective: no complaints this AM, denies n/v/cp/sob. [...] insulin. HDS and Hb stable. Neuro: DC EDGE GRINDER, continue PO dilaudid Cards: stable Pulm: IS, [...] close nmonitoring LONNIE YEUNG MD PGY1, pager [phone] Transplant Surgery I have seen and evaluated [...] home in AM with PICC line for residential hydration Leilani Keller MD - 08/31/2013 8:29 [...] Melgar MD - 08/30/2013 2:15 PM EST [facility] NEPHROLOGY INPATIENT FOLLOW UP PATIENT: Richard Hsu : 1965 ROOM: [place] [address][id number] ID: 47 y.o. male admitted for pancreas transplantation. Subjective: - Feels better - Tremors did not recur - NG tube taken out today - Has not passed gasses yet - Pain controlled w/EDGE GRINDER MEDS: ??? [COMPLETED] ondansetron 4 mg Intravenous [...] w/Dr Talia Camarena MD Nephrology Fellow Pager# [phone] I examined the patient, reviewed all of [...] 1:55 PM EST Care Management/ CRC pager# [phone]/ Progress note and Discharge planning S: Getting a referral in to [facility] and [facility] would be terrific. I am a nurse, but I am also the patient's ! ( Tiffani speaking) O: Met with patient and patient's in conjunction with Leilani Smiley RN Transplant Coordinatorthis afternoon. Other family members present. Referral to [facility] as requested. Information faxed via discharge central. Referral to [facility] as requested. Discussion with MIGUELITO Ricardo. Information faxed via discharge central. Care Management note for MD Discharge Summary (with VNA and Infusion Vendor information) completed and pended by magnetic tape typewriter operator. Patient is POD# 2 pancreas transplant. Blood sugar range 111-145 since midnight. NGT D/C this morning. GERALD drain x1 to bulb suction (output of 300ml/24hr). Solumedrol 125mg IV today. Patient OOB with assistance. Patient to have PICC line placed this afternoon. [facility] A: Patient progressing post-op. Supportive and family. P: I will continue in CRC role, following patient's in-hospital course, offering support to patient/family, coordinating discharge planning effort. At time of patient's discharge, program lead to call report to VNA and MD [...] insulin. HDS and Hb stable. Neuro: dil negative retoucher Cards: stable Pulm: IS, oob GI: sips [...] pain level is between 4-5. Pt using EDGE GRINDER approprietly. Pt at the bedside. VS stable [...] discharge medications have been ordered at the [facility] outpatient pharmacy and a family member will [...] Had some pain, but not using max negative retoucher Hb stable BP 139/79 Pulse 85 Temp [...] without insulin. HDS and Hb stable. Neuro: negative retoucher Cards: stable Pulm: IS GI: sips and [...] 4:19 PM EST Care Management/ CRC Pager# [phone]/ Initial assessment O: Patient sitting in recliner chair, napping. Regional Merchandising Manager did not awaken patient. Notes reviewed. Patient lives with his Tiffani in [facility]. Patient has [facility] and currently has CBA assecondary (but as of 08/31/13, CBA plan terminates). Call to Judi Manzano of Transplant Clinic to confirm. No Advance Directives on file here at [facility]. Patient is POD#1 pancreas transplant. At this [...] po/IV qday. Tylenol po q4hr prn. Hydromorphone EDGE GRINDER. Zofran IV q8hr prn (dose today at [...] C/o 05/10 main. Pt encouraged to push EDGE GRINDER button for any pain. CVP line flushed [...] [COMPLETED] alemtuzumab (CAMPATH) infusion 30 mg Intravenous Manager Express to OR ### ??? [COMPLETED] piperacillin-tazobactam 4.5 g Intravenous Manager Express to OR ### ??? [COMPLETED] ganciclovir 425 mg Intravenous [facility] to OR ### ??? citalopram 40 mg [...] 4.5 g Intravenous Q6H ### ??? [DISCONTINUED] EDGE GRINDER du ### ??? [COMPLETED] methylPREDNISolone 375 mg Intravenous Manager Express to OR ### ??? [COMPLETED] mycophenolate 1,000 mg Oral [facility] to OR ### ??? [COMPLETED] diphenhydrAMINE 50 mg Intravenous [facility] to OR ### ??? [COMPLETED] neomycin 1,000 mg Oral Q2H ### ??? [COMPLETED] acetaminophen 650 mg Oral [facility] to OR ### ??? [COMPLETED] fluconazole 200 mg Intravenous Once ### ??? levothyroxine 200 mcg Oral QAM ### ??? [DISCONTINUED] sodium chloride 0.9 % 5 mL Intravenous Q12H ### ??? [DISCONTINUED] alemtuzumab (CAMPATH) infusion 30 mg Intravenous Manager Express to OR ### ??? [DISCONTINUED] piperacillin-tazobactam 4.5 g Intravenous Once ### ??? [DISCONTINUED] ganciclovir 485 mg Intravenous Manager Express to OR ### ??? [DISCONTINUED] insulin aspart 3-12 Units Subcutaneous Q4H LAMONT ### ??? HYDROmorphone (DILAUDID) 1 mg/mL EDGE GRINDER 30 mL Intravenous EDGE GRINDER Only ### ??? EDGE GRINDER du Intravenous Continuous ### ??? lactated ringers [...] ANDERSON ZEE MD 08/28/2013 4:22 PM Tosha Townsend RN - 08/28/2013 2:10 PM EST Nursing Progress Note Shift Events: 1300 - Pt arrived to ISCU, report received from MIGUELITO Beltrán. AxOx4, PERRLA. VSS, BP 125/63, CVP 2. Midline with some shadowing, marked. GERALD drainage sanguineous. Pain 8/10, using EDGE GRINDER appropriately. Givenice chips. Will continue to monitor. [...] manage pain. 1120- Chest Xray done. 1205- EDGE GRINDER teaching performed with return demonstration showing understanding. Now rates pain 6/10. VSS. Daughter and at bedside to see pt. 1230- Dr. Yeung notified of low magnesium and potassium. Pt meets PACU discharge criteria. Report given to MIGUELITO Anton in ISCU. Rachel Herrera RN - [...] GI ENDOSCOPY performed by CLAYTON BHAKTA at [facility] END[facility] ??? Upper gi endoscopy, biopsy 12/31/2011 UPPER GASTROINTESTINAL ENDOSCOPY,WITH BIOPSY SINGLE OR MULTIPLE performed by CLAYTON BHAKTA at [facility] ??? Shoulder surgery ??? Carpal [...] mg by mouth 2 times daily. ??? 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 -Admit to [facility], floor status, transplant pod -EKG, CXR now for pre-operative workup -Holding home medications except for synthroid -Continue home insulin pump at current rate, POC glc checks q4h -Neomycin 1,000 mg q2h x2 doses -Abx information technology advisor to OR: Zosyn 4.5 gram, ganciclovir 487.5 mg, fluconazole 200 mg IV -Antirejection medications information technology advisor to OR: alemtuzumab 30 mg, methylprenisolone 375 mg, cellcept 1,000 mg po -Fluids: Hep lock -Diet: NPO -Labs: CBC, BMP, T&S, mag, phos, coags, HIV screen, hep C antibody, varicella antibody -Floor status, full code Conor Herbert M.D. PGY-2 Pager [phone] I have seen and examined the patient, [...] 09/03/2013 9:07 AM ESTAssociated Order(s): SCAN DOC: HOME COMPANION Anibal Lucero RN - 08/30/2013 3:16 PM [...] to the planned procedure. Hand Hygiene: The microbiological analyst did perform hand hygiene prior to line insertion. Catheter type: PICC Lot number: [id number] Procedure Technique: Skin was prepped with chlorhexidine. [...] 0 cm Tip in SVC per DR. TAVERASUM Arm circumference was 35 cm at 0 [...] Estimate Decreased RBC Morphology Abnormal Ovalocytes 1-5 Austin Cells 1-5 Toxic Granulation Present POCT GLUCOSE [...] mg by mouth 2 times daily. ??? [place]-3 Fatty Acids-Vitamin E (FISH OIL) 1,000 mg [...] 180 capsule 6 ??? Diabetic Supplies, Miscellan. [facility] Fax form to [facility] medical for testing supplies 10 times per [id number] each 12 ??? PROGRAF 1 mg capsule [...] Please check any medication changes with the [facility] transplant clinic. PCP: ANNA DENT MD Scheduled [...] nurse practitioner, clinical nurse specialist or physician's music library assistant who is working directly with them, [...] changes will need to be obtained from [facility] Transplant Clinic [phone] or from this patient's PCP: ANNA DENT MD [address] [place] [address] All A agencies which cover the area of patient's residence have been reviewed, either verbally or in writing, and patient/family have chosen the indicated home health care agency for home services. [facility] PHONE: [phone] FAX: [phone] RN visits to be within 24hr of [...] Response Notes Agency name and contact information [facility] Patient location post discharge home What services are requested Registered Nurse Start date 09/03/2013 Responsible MD post discharge contact info [facility] Dr. Leilani Keller and PCP Anna Dent Referral for Home Hydration Order Comments: Home Infusion Company Orders Home infusion company: [employer] [place], [place] or Patient name: Richard PerezpDOB: 1965 [...] Notes Vendor / contact information [facility] Patient location post discharge home Service requested PICC airline flight attendant and home IV hydration Start date 09/03/2013 Responsible MD post discharge contact info [facility] Dr. Leilani Keller and PCP Anna Dent [...] TRANSPLANT SURGERY CLINIC DURING WORKING HOURS AT [phone], OR CALL AFTER CLINIC HOURS, WEEKENDS AND HOLIDAYS: ASK FOR THE SURGERY RESIDENT STITCHING MACHINE FEEDER OR OFFBEARER IF ANY OF THE ABOVE OCCUR. Activity [...] drawn. General Instructions None Provider Contact Information: [phone] Signed: LONNIE YEUNG MD 09/02/2013 I examined [...] pain @ incision site, states it's achy 5-03/09. Taking po tylenol and dilaudid with reported [...] in flowsheets. Plan of Care - Sylvain Arboleda RN - 08/31/2013 2:54 PM EST Problem: Skin [...] Obstetric) Medicating with oral medications and using EDGE GRINDER for BTP; states tolerable level of comfort; [...] rating 8/10 pain. Pt reminded to use EDGE GRINDER button. Pt encouraged to notify RN of any change or increase in pain. Will continue to monitor. Plan of Care - Lilli Craig RN - 08/30/2013 11:35 AM EST Problem: Knowledge Deficit (Adult, Pediatric, , NICU, Obstetric) Goal: Knowledge Deficit: Knowledgeable about Subject/Topic Outcome: Outcome achieved Date Met: 08/30/13 Peripherally Inserted Central Catheter (PICC) Teaching Sheet Peripherally inserted central catheters (nifd-jh-[id number]) (PICC) are used when you need IV [...] midline catheter? PICC lines are used for longwall headgate operator treatments. PICC lines may be used for [...] can be set up via the nurse Director Of Archives to help you. What are possible complications [...] Efficacy, Safety, Use, and Administration of [employer] 2005 [facility] Plan of Care - Yolanda Dominguez RN [...] pain scale. Pt encouraged to use dilaudid EDGE GRINDER. Thereis relief in pain with using the EDGE GRINDER. Pt states a comfortable and tolerable pain level is about a 4 on the numeric pain scale. Pt uses the numbers scale appropriately to rate pain. Pt verbalizes an understanding of factors that aggravate and relieve pain. Other methods utilized to reduce pain such as repositioning and distraction. Consult Note - Eriberto Melgar MD - 08/29/2013 8:36 AM EST [facility] HYPERTENSION/ NEPHROLOGY INPATIENT CONSULTATION PATIENT: Richard Hsu : [address] Krishna PMH: Type 1 diabetes with gastroparesis Hypertension [...] piperacillin-tazobactam 4.5 g Intravenous Q6H ??? [DISCONTINUED] EDGE GRINDER du ??? levothyroxine 200 mcg Oral QAM [...] GI ENDOSCOPY performed by CLAYTON BHAKTA at [facility] ??? Upper gi endoscopy, biopsy 12/31/2011 UPPER GASTROINTESTINAL ENDOSCOPY,WITH BIOPSY SINGLE OR MULTIPLE performed by CLAYTON BHAKTA at [facility] ??? Shoulder surgery ??? Carpal tunnel release ??? Appendectomy ??? Musculoskeletal surgery unlisted 10 years carpel tunnel ??? 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 Dilaudid EDGE GRINDER in use. Pt educated on the importance to manage own pain with the use of EDGE GRINDER. Pt uses the numbers scale appropriately to [...] Keller MD - 08/28/2013 11:33 AM EST [facility] Operative Note Patient Name: Richard Hsu : [id number] MR#: [id number] Case Date: 08/28/2013 Surgeon: Surgeon(s) and Role: [...] and crossmatch for the organ and Richard Perezjamie. These were determined to be compatible by [...] gland. After securing hemostasis, we constructed a [id number] double layer handsewnanastomosis between the donor duodenum [...] with the hemostasis, we placed a 19 Serbian Cachorro drain in the patient's right lower [...] Operative Note Patient Name: Richard Hsu : [id number] MR#: [id number] Case Date: 08/28/2013 Surgeon: Surgeon(s) and Role: [...] procedure are i n the results section. HOME COMPANION SCAN 09/03/2013 9:07 Resu lts for this [...] section. TYPE AND SCREEN STAT 08/28/2013 1:28 ([facility]) AM EST XR CHEST PA AND Routine [...] documented in this encounter Results SCAN DOC: HOME COMPANION (09/03/2013 9:07 AM EST) Narrative 09/03/2013 9:24 [...] Organization Address City/State/ZIP Code Phon e Number [place] [phone] CERNER MILLENNIUM (ABNORMAL) Differential, [...] CERNER MILLENNIUM Ovalocytes 1-5 /HPF CERNER MILLENNIUM Austin Cells 1-5 /HPF CERNER MILLENNIUM Toxic Present CERNER Granulation MILLENNIUM Specimen Anatomical Collection Method Collection Time Receive d Time (Source) Location / / Volume Laterality Blood specimen 09/02/2013 3:25 AM 014 3:43 (specimen) EST AM EST Resulting Agency Comment Spec In Lab Leilani Keller MD HEMATOLOGY ORDERABLES Performing Organization Address City/State/[place] [address] CERNER MILLENNIUM (ABNORMAL) CBC [...] 121 (L) 145 - 370 x10(3)/mcL CERNER SC LLENNIUM RDWSD 39.3 35.0 - 46.0 fL [...] Organization Address City/State/[place] [address] CERNER MILLENNIUM (ABNORMAL) Basic [...] intervals supplied above were not validated at [facility]. Results from pediatri c patients should be [...] Keller MD CHEMISTRY ORDERABLES Performing Organization Address City/[facility]/ZIP Code Phon e Number [address] CERNER MILLENNIUM Phosphorus (09/02/2013 3:25 AM EST) P athologist Signature Phosphorus 3.7 2.5 - 4.5 CERNER mg/dL MILLENNIUM Specimen Anatomical Collection Method Collection Time Receive d Time (Source) Location / / Volume Laterality Blood specimen 09/02/2013 3:25 AM 014 3:43 (specimen) EST AM EST Resulting Agency Comment Spec In Lab Leilani Keller MD CHEMISTRY ORDERABLES Performing Organization Address City/[facility] Code Phon e Number [address] CERNER MILLENNIUM (ABNORMAL) Lipase (09/02/2013 3:25 AM EST) P athologist Signature Lipase 64 (H) 0 - 60 CERNER unit/L MILLENNIUM Specimen Anatomical Collection Method Collection Time Receive d Time (Source) Location / / Volume Laterality Blood specimen 09/02/2013 3:25 AM 014 3:43 (specimen) EST AM EST Resulting Agency Comment Spec In Lab Leilani Keller MD CHEMISTRY ORDERABLES Performing Organization Address City/[facility] Phon e Number [address] CERNER MILLENNIUM Amylase (09/02/2013 3:25 AM EST) P athologist Signature Amylase 70 28 - 100 CERNER unit/L MILLENNIUM Specimen Anatomical Collection Method Collection Time Receive d Time (Source) Location / / Volume Laterality Blood specimen 09/02/2013 3:25 AM 014 3:43 (specimen) EST AM EST Resulting Agency Comment Spec In Lab Leilani Keller MD CHEMISTRY ORDERABLES Performing Organization Address City/[facility]/ZIP Code Phon e Number [address] CERNER MILLENNIUM (ABNORMAL) Magnesium (09/02/2013 3:25 AM EST) P athologist Signature Magnesium 0.68 (L) 0.69 - 1.07 CERNER mmol/L MILLENNIUM Specimen Anatomical Collection Method Collection Time Receive d Time (Source) Location / / Volume Laterality Blood specimen 09/02/2013 3:25 AM 014 3:43 (specimen) EST AM EST Resulting Agency Comment Spec In Lab Leilani Keller MD CHEMISTRY ORDERABLES Performing Organization Address City/[facility]/ZIP Code Phon e Number [address] CERNER MILLENNIUM POCT Glucose (09/02/2013 3:24 AM EST) athologist Signature POC Glucose 87 60 - 199 CERNER mg/dL [facility] Comment: Supplemental ranges: <110 mg/dL before meals <200 mg/dL all other times of the day Specimen Anatomical Collection Method Collection Time Receive d Time (Source) Location / / Volume Laterality Blood specimen 09/02/2013 3:24 AM 014 3:24 (specimen) EST AM EST Leilani Keller MD POINT OF CARE TEST ORDERABLE S Performing Organization Address City/[facility]/ZIP Code Phon e Number [address] CERNER MILLENNIUM POCT Glucose (09/02/2013 12:03 AM EST) athologist Signature POC Glucose 98 60 - [...] Organization Address City/State/ZIP Code Phon e Number [address] CERNER MILLENNIUM POCT Glucose [...] CARE TEST ORDERABLE S Performing Organization Address City/[facility]/[place] [address] CERNER MILLENNIUM POCT Glucose [...] CARE TEST ORDERABLE S Performing Organization Address City/[facility]/ZIP Code Phon e Number [address] CERNER MILLENNIUM POCT Glucose (09/01/2013 11:46 AM EST) P athologist Signature POC Glucose 127 60 - 199 CERNER mg/dL MILLENNIUM Comment: Supplemental ranges: <110 mg/dL before meals <200 mg/dL all other times of the day Specimen Anatomical Collection Method Collection Time Receive d Time (Source) Location / / Volume Laterality Blood specimen 09/01/2013 11:46 01/02/201 4 (specimen) AM EST 11:46 AM EST Leilani Keller MD POINT OF CARE TEST ORDERABLE S Performing Organization Address City/State/ZIP Code Phon e Number [place] [phone] CERNER MILLENNIUM (ABNORMAL) Differential, Automated (09/01/2013 8:00 AM EST) [facility] Method Time Signature Neutrophils % 94.0 (H) [...] Keller MD HEMATOLOGY ORDERABLES Performing Organization Address [facility]/[place] [address] CERNER MILLENNIUM (ABNORMAL) CBC [...] Keller MD HEMATOLOGY ORDERABLES Performing Organization Address City/[facility]/ZIP Code Phon e Number [address] CERNER MILLENNIUM (ABNORMAL) Basic Metabolic [...] intervals supplied above were not validated at [facility]. Results from pediatri c patients should be [...] Organization Address City/State/ZIP Code Phon e Number [place] [phone] CERNER MILLENNIUM Tacrolimus level [...] Keller MD CHEMISTRY ORDERABLES Performing Organization Address City/[facility]/ZIP Code Phon e Number [address] CERNER MILLENNIUM Phosphorus (09/01/2013 8:00 AM EST) athologist Signature Phosphorus 2.6 2.5 - 4.5 CERNER mg/dL MILLENNIUM Specimen Anatomical Collection Method Collection Time Receive d Time (Source) Location / / Volume Laterality Blood specimen 09/01/2013 8:00 AM 014 8:16 (specimen) EST AM EST Resulting Agency Comment Spec In Lab Leilani Keller MD CHEMISTRY ORDERABLES Performing Organization Address City/[facility]/ZIP Code Phon e Number [address] CERNER MILLENNIUM (ABNORMAL) Lipase (09/01/2013 8:00 AM EST) athologist Signature Lipase 82 (H) 0 - 60 CERNER unit/L MILLENNIUM Specimen Anatomical Collection Method Collection Time Receive d Time (Source) Location / / Volume Laterality Blood specimen 09/01/2013 8:00 AM 014 8:16 (specimen) EST AM EST Resulting Agency Comment Spec In Lab Leilani Keller MD CHEMISTRY ORDERABLES Performing Organization Address City/[facility]/ZIP Code Phon e Number [address] CERNER MILLENNIUM Amylase (09/01/2013 8:00 AM EST) athologist Signature Amylase 86 28 - 100 CERNER unit/L MILLENNIUM Specimen Anatomical Collection Method Collection Time Receive d Time (Source) Location / / Volume Laterality Blood specimen 09/01/2013 8:00 AM 014 8:16 (specimen) EST AM EST Resulting Agency Comment Spec In Lab Leilani Keller MD CHEMISTRY ORDERABLES Performing Organization Address City/[facility]/ZIP Code Phon e Number [address] CERNER MILLENNIUM Magnesium (09/01/2013 8:00 AM EST) P athologist Signature Magnesium 0.76 0.69 - 1.07 CERNER mmol/L MILLENNIUM Specimen Anatomical Collection Method Collection Time Receive d Time (Source) Location / / Volume Laterality Blood specimen 09/01/2013 8:00 AM 014 8:16 (specimen) EST AM EST Resulting Agency Comment Spec In Lab Leilani Keller MD CHEMISTRY ORDERABLES Performing Organization Address City/[facility]/ZIP Code Phon e Number [address] CERNER MILLENNIUM POCT Glucose [...] Organization Address City/State/ZIP Code Phon e Number [address] CERNER MILLENNIUM POCT Glucose [...] Organization Address City/State/[place] [address] CERNER MILLENNIUM POCT Glucose [...] CARE TEST ORDERABLE S Performing Organization Address City/[facility]/ZIP Code Phon e Number [address] CERNER MILLENNIUM POCT Glucose [...] CARE TEST ORDERABLE S Performing Organization Address City/[facility]/[place] [address] CERNER MILLENNIUM POCT Glucose [...] Organization Address City/State/[place] [address] CERNER MILLENNIUM POCT Glucose [...] Organization Address City/State/ZIP Code Phon e Number [address] CERNER MILLENNIUM POCT Glucose [...] Organization Address City/State/ZIP Code Phon e Number [address] CERNER MILLENNIUM POCT Glucose [...] Address City/State/ZIP [place] [address] CERNER MILLENNIUM (ABNORMAL) Differential, Automated (08/31/2013 3:13 AM EST) [facility] Method Time Signature Neutrophils % 95.5 (H) [...] IG's will be scanned manually for salvatore dandylon. If this scan disagrees with the [...] Address City/State/ZIP Code Phon e Number [place] [address] CERNER MILLENNIUM (ABNORMAL) CBC [...] Organization Address City/State/[place] [address] CERNER MILLENNIUM (ABNORMAL) Basic [...] intervals supplied above were not validated at [facility]. Results from pediatri c patients should be [...] Organization Address City/State/[place] [address] CERNER MILLENNIUM Phosphorus (08/31/2013 3:13 AM EST) P athologist Signature Phosphorus 3.2 2.5 - 4.5 CERNER mg/dL MILLENNIUM Specimen Anatomical Collection Method Collection Time Receive d Time (Source) Location / / Volume Laterality Blood specimen 08/31/2013 3:13 AM 014 3:20 (specimen) EST AM EST Resulting Agency Comment Spec In Lab Leilani Keller MD CHEMISTRY ORDERABLES Performing Organization Address City/[facility]/ZIP Code Phon e Number [address] CERNER MILLENNIUM Lipase (08/31/2013 3:13 AM EST) P athologist Signature Lipase 53 0 - 60 CERNER unit/L MILLENNIUM Specimen Anatomical Collection Method Collection Time Receive d Time (Source) Location / / Volume Laterality Blood specimen 08/31/2013 3:13 AM 014 3:20 (specimen) EST AM EST Resulting Agency Comment Spec In Lab Leilani Keller MD CHEMISTRY ORDERABLES Performing Organization Address City/[facility]/ZIP Code Phon e Number [address] CERNER MILLENNIUM Amylase (08/31/2013 3:13 AM EST) athologist Signature Amylase 60 28 - 100 CERNER unit/L MILLENNIUM Specimen Anatomical Collection Method Collection Time Receive d Time (Source) Location / / Volume Laterality Blood specimen 08/31/2013 3:13 AM 014 3:20 (specimen) EST AM EST Resulting Agency Comment Spec In Lab Leilani Keller MD CHEMISTRY ORDERABLES Performing Organization Address City/[facility]/ZIP Code Phon e Number [address] [facility] MILLENNIUM Magnesium (08/31/2013 3:13 AM EST) P athologist Signature Magnesium 0.88 0.69 - 1.07 CERNER mmol/L MILLENNIUM Specimen Anatomical Collection Method Collection Time Receive d Time (Source) Location / / Volume Laterality Blood specimen 08/31/2013 3:13 AM 014 3:20 (specimen) EST AM EST Resulting Agency Comment Spec In Lab Leilani Keller MD CHEMISTRY ORDERABLES Performing Organization Address City/[facility]/ZIP Code Phon e Number [address] [facility] POCT Glucose (08/30/2013 11:16 PM EST) P [...] CARE TEST ORDERABLE S Performing Organization Address City/[facility]/ZIP Code Phon e Number [address] CERNER MILLENNIUM POCT Glucose (08/30/2013 8:02 PM EST) athologist Signature POC Glucose 133 [...] CARE TEST ORDERABLE S Performing Organization Address City/[facility]/ZIP Code Phon e Number [address] CERNER MILLENNIUM POCT Glucose (08/30/2013 4:29 PM EST) athologist Signature POC Glucose 152 60 - 199 CERNER mg/dL MILLENNIUM Comment: Supplemental ranges: <110 mg/dL before meals <200 mg/dL all other times of the day Specimen Anatomical Collection Method Collection Time Receive d Time (Source) Location / / Volume Laterality Blood specimen 08/30/2013 4:29 PM 013 4:29 (specimen) EST PM EST Leilani Keller MD POINT OF CARE TEST ORDERABLE S Performing Organization Address City/[facility]/ZIP Code Phon e Number [address] CERNER MILLENNIUM XR VAS [...] not appreciably melony nged. Procedure Note Adalgisa Negro MD - 08/30/2013Formatt ing of this note [...] Organization Address City/State/[place] [address] CERNER MILLENNIUM POCT Glucose [...] Organization Address City/State/ZIP Code Phon e Number [address] CERNER MILLENNIUM POCT Glucose [...] Organization Address City/State/ZIP Code Phon e Number [address] CERNER MILLENNIUM POCT Glucose [...] Organization Address City/State/ZIP Code Phon e Number [address] CERNER MILLENNIUM POCT Glucose [...] Organization Address City/State/[place] [address] CERNER MILLENNIUM POCT Glucose [...] Organization Address City/State/[place] [address] CERNER MILLENNIUM (ABNORMAL) Differential, [...] Organization Address City/State/[place] [address] CERNER MILLENNIUM (ABNORMAL) Basic [...] intervals supplied above were not validated at [facility]. Results from pediatri c patients should be [...] Organization Address City/State/[place] [address] CERNER MILLENNIUM (ABNORMAL) CBC [...] RDWSD 41.8 35.0 - CERNER 46.0 fL [facility] RDWCV 12.8 10.9 - CERNER 14.4 % [facility] MPV 10.9 9.0 - 12.0 CERNER fL [facility] Specimen Anatomical Collection Method Collection Time Receive d Time (Source) Location / / Volume Laterality Blood specimen 08/30/2013 6:35 AM 013 6:38 (specimen) EST AM EST Resulting Agency Comment Spec In Lab Leilani Keller MD HEMATOLOGY ORDERABLES Performing Organization Address City/State/ZIP Code Phon e Number [address] CERNER MILLENNIUM POCT Glucose (08/30/2013 6:06 AM EST) athologist Signature POC Glucose 130 60 - 199 CERNER mg/dL [facility] Comment: Supplemental ranges: <110 mg/dL before meals <200 mg/dL all other times of the day Specimen Anatomical Collection Method Collection Time Receive d Time (Source) Location / / Volume Laterality Blood specimen 08/30/2013 6:06 AM 013 6:06 (specimen) EST AM EST Leilani Keller MD POINT OF CARE TEST ORDERABLE S Performing Organization Address City/[facility]/ZIP Code Phon e Number [address] CERNER MILLENNIUM POCT Glucose (08/30/2013 5:03 AM EST) athologist Signature POC Glucose 130 60 - 199 CERNER mg/dL [facility] Comment: Supplemental ranges: <110 mg/dL before meals <200 mg/dL all other times of the day Specimen Anatomical Collection Method Collection Time Receive d Time (Source) Location / / Volume Laterality Blood specimen 08/30/2013 5:03 AM 013 5:03 (specimen) EST AM EST Leilani Keller MD POINT OF CARE TEST ORDERABLE S Performing Organization Address City/[facility]/ZIP Code Phon e Number [address] CERNER MILLENNIUM POCT Glucose [...] Organization Address City/State/ZIP Code Phon e Number [address] CERNER MILLENNIUM POCT Glucose [...] CARE TEST ORDERABLE S Performing Organization Address City/[facility]/ZIP Code Phon e Number [address] CERNER MILLENNIUM POCT Glucose [...] CARE TEST ORDERABLE S Performing Organization Address City/[facility]/ZIP Code Phon e Number [address] CERNER MILLENNIUM POCT Glucose [...] Organization Address City/State/ZIP Code Phon e Number [place] [phone] CERNER MILLENNIUM (ABNORMAL) Differential, Automated (08/30/2013 12:45 AM EST) [facility] Method Time Signature Neutrophils % 96.9 (H) [...] Organization Address City/State/ZIP Code Phon e Number [address] CERNER MILLENNIUM Glucose, random (08/30/2013 [...] Keller MD CHEMISTRY ORDERABLES Performing Organization Address City/[facility]/ZIP Code Phon e Number [address] CERNER MILLENNIUM (ABNORMAL) Creatinine (08/30/2013 12:45 AM EST) athologist Signature Creatinine 0.68 (L) 0.80 - CERNER 1.50 mg/dL MILLENNIUM Comment: Please note that the pediatric reference intervals supplied above were not validated at [facility]. Results from pediatri c patients should be [...] Organization Address City/State/[place] [address] CERNER MILLENNIUM BUN (08/30/2013 12:45 AM EST) P athologist Signature BUN 18 10 - 20 CERNER mg/dL MILLENNIUM Specimen Anatomical Collection Method Collection Time Receive d Time (Source) Location / / Volume Laterality Blood specimen 08/30/2013 12:45 3 1:00 (specimen) AM EST AM EST Resulting Agency Comment Spec In Lab Leilani Keller MD CHEMISTRY ORDERABLES Performing Organization Address City/[facility]/[place] [address] CERNER MILLENNIUM Electrolytes panel [...] Keller MD CHEMISTRY ORDERABLES Performing Organization Address City/[facility]/[place] [address] CERNER MILLENNIUM (ABNORMAL) CBC [...] Keller MD HEMATOLOGY ORDERABLES Performing Organization Address City/[facility]/ZIP Code Phon e Number [address] CERNER MILLENNIUM Phosphorus (08/30/2013 12:45 AM EST) P athologist Signature Phosphorus 3.0 2.5 - 4.5 CERNER mg/dL MILLENNIUM Specimen Anatomical Collection Method Collection Time Receive d Time (Source) Location / / Volume Laterality Blood specimen 08/30/2013 12:45 3 1:00 (specimen) AM EST AM EST Resulting Agency Comment Spec In Lab Leilani Keller MD CHEMISTRY ORDERABLES Performing Organization Address City/[facility]/ZIP Code Phon e Number [address] CERNER MILLENNIUM Lipase (08/30/2013 [...] Organization Address City/State/ZIP Code Phon e Number [address] CERNER MILLENNIUM Amylase (08/30/2013 12:45 AM EST) athologist Signature Amylase 46 28 - 100 CERNER unit/L MILLENNIUM Specimen Anatomical Collection Method Collection Time Receive d Time (Source) Location / / Volume Laterality Blood specimen 08/30/2013 12:45 3 1:00 (specimen) AM EST AM EST Resulting Agency Comment Spec In Lab Leilani Kleler MD CHEMISTRY ORDERABLES Performing Organization Address City/State/ZIP Code Phon e Number [address] CERNER MILLENNIUM Magnesium (08/30/2013 12:45 AM EST) athologist Signature Magnesium 0.80 0.69 - 1.07 CERNER mmol/L [facility] Specimen Anatomical Collection Method Collection Time Receive d Time (Source) Location / / Volume Laterality Blood specimen 08/30/2013 12:45 3 1:00 (specimen) AM EST AM EST Resulting Agency Comment Spec In Lab Leilani Keller MD CHEMISTRY ORDERABLES Performing Organization Address City/State/ZIP Code Phon e Number [address] CERNER MILLENNIUM POCT Glucose (08/30/2013 12:08 AM EST) athologist Signature POC Glucose 140 60 - 199 CERNER mg/dL [facility] Comment: Supplemental ranges: <110 mg/dL before meals <200 mg/dL all other times of the day Specimen Anatomical Collection Method Collection Time Receive d Time (Source) Location / / Volume Laterality Blood specimen 08/30/2013 12:08 3 (specimen) AM EST 12:08 AM EST Leilani Keller MD POINT OF CARE TEST ORDERABLE S Performing Organization Address City/[facility]/[place] [address] CERNER MILLENNIUM POCT Glucose [...] CARE TEST ORDERABLE S Performing Organization Address City/[facility]/[place] [address] CERNER MILLENNIUM POCT Glucose (08/29/2013 9:57 PM EST) athologist Signature POC Glucose 153 60 - [...] CARE TEST ORDERABLE S Performing Organization Address City/[facility]/ZIP Code Phon e Number [address] CERNER MILLENNIUM POCT Glucose (08/29/2013 9:19 PM EST) P athologist Signature POC Glucose 136 60 - 199 CERNER mg/dL MILLENNIUM Comment: Supplemental ranges: <110 mg/dL before meals <200 mg/dL all other times of the day Specimen Anatomical Collection Method Collection Time Receive d Time (Source) Location / / Volume Laterality Blood specimen 08/29/2013 9:19 PM 013 9:19 (specimen) EST PM EST Leilani Keller MD POINT OF CARE TEST ORDERABLE S Performing Organization Address City/State/ZIP Code Phon e Number [address] CERNER MILLENNIUM POCT Glucose [...] Organization Address City/State/[place] [address] CERNER MILLENNIUM (ABNORMAL) Differential, [...] Organization Address City/State/[place] [address] CERNER MILLENNIUM (ABNORMAL) Basic [...] intervals supplied above were not validated at [facility]. Results from pediatri c patients should be [...] FARNAZ REEVES NIUM Estimated GFR >60 >=60 CERGUILLERMINA HERBERTIU M Comment: This estimated GFR (eGFR) value [...] Organization Address City/State/ZIP Code Phon e Number [place] [phone] CERNER MILLENNIUM (ABNORMAL) CBC (with Diff) (08/29/2013 6:35 PM [...] Organization Address City/State/ZIP Code Phon e Number [address] CERNER MILLENNIUM POCT Glucose (08/29/2013 6:34 PM EST) athologist Signature POC Glucose 146 60 - 199 CERNER mg/dL MILLENNIUM Comment: Supplemental ranges: <110 mg/dL before meals <200 mg/dL all other times of the day Specimen Anatomical Collection Method Collection Time Receive d Time (Source) Location / / Volume Laterality Blood specimen 08/29/2013 6:34 PM 013 6:34 (specimen) EST PM EST Leilani Keller MD POINT OF CARE TEST ORDERABLE S Performing Organization Address City/[facility]/ZIP Code Phon e Number [address] CERNER MILLENNIUM POCT Glucose [...] CARE TEST ORDERABLE S Performing Organization Address City/[facility]/ZIP Code Phon e Number [address] CERNER MILLENNIUM POCT Glucose (08/29/2013 3:52 PM EST) athologist Signature POC Glucose 150 60 - 199 CERNER mg/dL MILLENNIUM Comment: Supplemental ranges: <110 mg/dL before meals <200 mg/dL all other times of the day Specimen Anatomical Collection Method Collection Time Receive d Time (Source) Location / / Volume Laterality Blood specimen 08/29/2013 3:52 PM 013 3:52 (specimen) EST PM EST Leilani Keller MD POINT OF CARE TEST ORDERABLE S Performing Organization Address City/[facility]/ZIP Code Phon e Number [address] CERNER MILLENNIUM POCT Glucose (08/29/2013 3:16 PM EST) P athologist Signature POC Glucose 173 60 - [...] Organization Address City/State/ZIP Code Phon e Number [address] CERNER MILLENNIUM POCT Glucose (08/29/2013 2:10 PM EST) P athologist Signature POC Glucose [...] Organization Address City/State/ZIP Code Phon e Number [address] CERNER MILLENNIUM POCT Glucose (08/29/2013 1:06 PM EST) P athologist Signature POC Glucose [...] Organization Address City/State/ZIP Code Phon e Number [place] [phone] CERNER MILLENNIUM (ABNORMAL) Differential, Automated (08/29/2013 12:25 PM EST) [facility] Method Time Signature Neutrophils % 97.9 (H) [...] Address City/State/ZIP Code [place] [address] CERNER MILLENNIUM (ABNORMAL) Basic [...] intervals supplied above were not validated at [facility]. Results from pediatri c patients should be [...] Keller MD CHEMISTRY ORDERABLES Performing Organization Address City/[facility]/ZIP Code Phon e Number [address] CERNER MILLENNIUM (ABNORMAL) CBC [...] Keller MD HEMATOLOGY ORDERABLES Performing Organization Address City/[facility]/ZIP Code Phon e Number [address] CERNER MILLENNIUM POCT Glucose [...] Organization Address City/State/ZIP Code Phon e Number [address] CERNER MILLENNIUM POCT Glucose (08/29/2013 11:10 AM EST) athologist Signature POC Glucose 119 60 - 199 CERNER mg/dL MILLENNIUM Comment: [...] Organization Address City/State/ZIP Code Phon e Number [address] CERNER MILLENNIUM POCT Glucose (08/29/2013 10:18 AM EST) athologist Signature POC Glucose 120 60 - 199 CERNER mg/dL MILLENNIUM [...] Organization Address City/State/ZIP Code Phon e Number [address] CERNER MILLENNIUM POCT Glucose (08/29/2013 8:59 AM EST) athologist Signature POC Glucose 130 60 - 199 CERNER mg/dL [facility] Comment: Supplemental ranges: <110 mg/dL before meals <200 mg/dL all other times of the day Specimen Anatomical Collection Method Collection Time Receive d Time (Source) Location / / Volume Laterality Blood specimen 08/29/2013 8:59 AM 013 8:59 (specimen) EST AM EST Leilani Keller MD POINT OF CARE TEST ORDERABLE S Performing Organization Address City/State/[place] [address] CERNER MILLENNIUM POCT Glucose (08/29/2013 7:51 AM EST) athologist Signature POC Glucose 108 60 - 199 CERNER mg/dL [facility] Comment: Supplemental ranges: <110 mg/dL before meals <200 mg/dL all other times of the day Specimen Anatomical Collection Method Collection Time Receive d Time (Source) Location / / Volume Laterality Blood specimen 08/29/2013 7:51 AM 013 7:51 (specimen) EST AM EST Leilani Keller MD POINT OF CARE TEST ORDERABLE S Performing Organization Address City/State/ZIP Code Phon e Number [address] CERNER MILLENNIUM POCT Glucose (08/29/2013 7:12 AM EST) athologist Signature POC Glucose 114 60 - 199 CERNER mg/dL [facility] Comment: Supplemental ranges: <110 mg/dL before meals <200 mg/dL all other times of the day Specimen Anatomical Collection Method Collection Time Receive d Time (Source) Location / / Volume Laterality Blood specimen 08/29/2013 7:12 AM 013 7:12 (specimen) EST AM EST Leilani Keller MD POINT OF CARE TEST ORDERABLE S Performing Organization Address City/[facility]/ZIP Code Phon e Number [address] CERNER MILLENNIUM (ABNORMAL) Differential, Automated (08/29/2013 6:30 AM EST) [facility] gist Method Time Signature Neutrophils % 98.0 [...] Organization Address City/State/[place] [address] CERNER MILLENNIUM (ABNORMAL) Basic Metabolic Panel (non-fasting) (08/29/2013 6:30 AM EST) P athologist Signature Glucose Lvl 120 60 - 199 CERNER mg/dL MILLENNIUM Comment: Diabetes: >=200 mg/dL plus symp toms BUN 15 10 - 20 mg/dL CERNER MILLENNIU M Creatinine 0.80 0.80 - 1.50 mg/dL CERNER MILL ENNIUM Comment: Please note that the pediatric reference intervals supplied above were not validated at [facility]. Results from pediatri c patients should be [...] Organization Address City/State/ZIP Code Phon e Number [place] [phone] CERNER MILLENNIUM (ABNORMAL) CBC [...] Keller MD HEMATOLOGY ORDERABLES Performing Organization Address City/[facility]/[place] [address] CERNER [facility] POCT Glucose (08/29/2013 6:24 AM EST) athologist Signature POC Glucose 99 60 - 199 CERNER mg/dL [facility] Comment: Supplemental ranges: <110 mg/dL before meals <200 mg/dL all other times of the day Specimen Anatomical Collection Method Collection Time Receive d Time (Source) Location / / Volume Laterality Blood specimen 08/29/2013 6:24 AM 013 6:24 (specimen) EST AM EST Leilani Keller MD POINT OF CARE TEST ORDERABLE S Performing Organization Address City/[facility]/[place] [address] CERNER MILLENNIUM POCT Glucose [...] Organization Address City/State/ZIP Code Phon e Number [address] CERNER MILLENNIUM POCT Glucose [...] Organization Address City/State/ZIP Code Phon e Number [address] CERNER MILLENNIUM POCT Glucose [...] Organization Address City/State/[place] [address] CERNER MILLENNIUM POCT Glucose [...] Organization Address City/State/ZIP Code Phon e Number [address] CERNER MILLENNIUM POCT Glucose [...] CARE TEST ORDERABLE S Performing Organization Address City/[facility]/ZIP Code Phon e Number [address] CERNER MILLENNIUM (ABNORMAL) Differential, Automated (08/29/2013 12:30 AM EST) [facility] gist Method Time Signature Neutrophils % 98.4 [...] Organization Address City/State/[place] [address] CERNER MILLENNIUM Basic Metabolic Panel (non-fasting) (08/29/2013 12:30 AM EST) athologist Signature Glucose Lvl 124 60 - 199 CERNER mg/dL MILLENNIUM Comment: Diabetes: >=200 mg/dL plus symp toms BUN 12 10 - 20 mg/dL CERNER MILLENNIU M Creatinine 0.83 0.80 - 1.50 mg/dL CERNER MILL ENNIUM Comment: Please note that the pediatric reference intervals supplied above were not validated at [facility]. Results from pediatri c patients should be [...] Organization Address City/State/ZIP Code Phon e Number [place] [phone] CERNER MILLENNIUM (ABNORMAL) CBC [...] EST Resulting Agency Comment Spec In Lab Leilnai Keller MD HEMATOLOGY ORDERABLES Performing Organization Address City/[facility]/[place] [address] CERNER MILLENNIUM Phosphorus (08/29/2013 12:30 AM EST) P athologist Signature Phosphorus 3.5 2.5 - 4.5 CERNER mg/dL MILLENNIUM Specimen Anatomical Collection Method Collection Time Receive d Time (Source) Location / / Volume Laterality Blood specimen 08/29/2013 12:30 3 (specimen) AM EST 12:40 AM EST Resulting Agency Comment Spec In Lab Leilani Keller MD CHEMISTRY ORDERABLES Performing Organization Address City/[facility]/[place] [address] CERNER MILLENNIUM Lipase (08/29/2013 12:30 AM EST) P athologist Signature Lipase 29 0 - 60 CERNER unit/L MILLENNIUM Specimen Anatomical Collection Method Collection Time Receive d Time (Source) Location / / Volume Laterality Blood specimen 08/29/2013 12:30 3 (specimen) AM EST 12:40 AM EST Resulting Agency Comment Spec In Lab Leilani Keller MD CHEMISTRY ORDERABLES Performing Organization Address City/[facility]/[place] [address] CERNER MILLENNIUM Amylase (08/29/2013 12:30 AM EST) athologist Signature Amylase 44 28 - 100 CERNER unit/L MILLENNIUM Specimen Anatomical Collection Method Collection Time Receive d Time (Source) Location / / Volume Laterality Blood specimen 08/29/2013 12:30 3 (specimen) AM EST 12:40 AM EST Resulting Agency Comment Spec In Lab Leilani Keller MD CHEMISTRY ORDERABLES Performing Organization Address City/[facility]/ZIP Code Phon e Number [address] CERNER MILLENNIUM Magnesium (08/29/2013 12:30 AM EST) athologist Signature Magnesium 0.78 0.69 - 1.07 CERNER mmol/L MILLENNIUM Specimen Anatomical Collection Method Collection Time Receive d Time (Source) Location / / Volume Laterality Blood specimen 08/29/2013 12:30 3 (specimen) AM EST 12:40 AM EST Resulting Agency Comment Spec In Lab Leilani Keller MD CHEMISTRY ORDERABLES Performing Organization Address City/[facility]/ZIP Code Phon e Number [address] CERNER MILLENNIUM POCT Glucose (08/29/2013 12:08 AM EST) athologist Signature POC Glucose 139 60 - 199 CERNER mg/dL [facility] Comment: Supplemental ranges: <110 mg/dL before meals <200 mg/dL all other times of the day Specimen Anatomical Collection Method Collection Time Receive d Time (Source) Location / / Volume Laterality Blood specimen 08/29/2013 12:08 3 (specimen) AM EST 12:08 AM EST Leilani Keller MD POINT OF CARE TEST ORDERABLE S Performing Organization Address City/[facility]/ZIP Code Phon e Number [address] CERNER MILLENNIUM POCT Glucose (08/28/2013 11:05 PM EST) athologist Signature POC Glucose 144 60 - 199 CERNER mg/dL [facility] Comment: Supplemental ranges: <110 mg/dL before meals <200 mg/dL all other times of the day Specimen Anatomical Collection Method Collection Time Receive d Time (Source) Location / / Volume Laterality Blood specimen 08/28/2013 11:05 3 (specimen) PM EST 11:05 PM EST Leilani Keller MD POINT OF CARE TEST ORDERABLE S Performing Organization Address City/State/[place] [address] CERNER MILLENNIUM POCT Glucose [...] CARE TEST ORDERABLE S Performing Organization Address City/[facility]/[place] [address] CERNER MILLENNIUM POCT Glucose [...] Organization Address City/State/ZIP Code Phon e Number [address] CERNER MILLENNIUM POCT Glucose (08/28/2013 8:06 PM EST) P athologist Signature POC Glucose 156 60 - [...] CARE TEST ORDERABLE S Performing Organization Address City/[facility]/[place] [address] CERNER MILLENNIUM POCT Glucose [...] CARE TEST ORDERABLE S Performing Organization Address City/[facility]/[place] [address] CERNER MILLENNIUM POCT Glucose [...] CARE TEST ORDERABLE S Performing Organization Address City/[facility]/ZIP Code Phon e Number [address] CERNER MILLENNIUM (ABNORMAL) Differential, Manual (08/28/2013 6:05 PM EST) [facility] gist Method Time Signature Neutrophil % 70 [...] Organization Address City/State/[place] [address] CERNER MILLENNIUM Basic Metabolic Panel (non-fasting) (08/28/2013 6:05 PM EST) athologist Signature Glucose Lvl 166 60 - 199 CERNER mg/dL MILLENNIUM Comment: Diabetes: >=200 mg/dL plus symp toms BUN 12 10 - 20 mg/dL CERNER MILLENNIU M Creatinine 0.89 0.80 - 1.50 mg/dL CERNER MILL ENNIUM Comment: Please note that the pediatric reference intervals supplied above were not validated at [facility]. Results from pediatri c patients should be [...] Anion Gap 12 5 - 15 mmol/L FARNAZ HERBERTIU M Calcium 8.7 8.5 - 10.5 mg/dL FARNAZ JUAREZEN NIUM Estimated GFR >60 >=60 FARNAZ HERBERTIU M Comment: This estimated GFR (eGFR) value [...] Organization Address City/State/[place] [address] CERNER MILLENNIUM (ABNORMAL) CBC [...] MPV 10.9 9.0 - 12.0 CERNER fL [facility] Specimen Anatomical Collection Method Collection Time Receive d Time (Source) Location / / Volume Laterality Blood specimen 08/28/2013 6:05 PM 013 6:19 (specimen) EST PM EST Resulting Agency Comment Spec In Lab Leilani Keller MD HEMATOLOGY ORDERABLES Performing Organization Address City/[facility]/ZIP Code Phon e Number [address] CERNER MILLENNIUM POCT Glucose [...] CARE TEST ORDERABLE S Performing Organization Address City/[facility]/ZIP Code Phon e Number [address] CERNER MILLENNIUM POCT Glucose (08/28/2013 4:13 PM EST) athologist Signature POC Glucose 131 60 - 199 CERNER mg/dL ENNIUM Comment: Supplemental ranges: <110 mg/dL before meals <200 mg/dL all other times of the day Specimen Anatomical Collection Method Collection Time Receive d Time (Source) Location / / Volume Laterality Blood specimen 08/28/2013 4:13 PM 013 4:13 (specimen) EST PM EST Leilani Keller MD POINT OF CARE TEST ORDERABLE S Performing Organization Address City/[facility]/ZIP Code Phon e Number [address] CERNER MILLENNIUM APTT (08/28/2013 3:50 PM EST) athologist [...] Keller MD HEMATOLOGY ORDERABLES Performing Organization Address City/[facility]/[place] [address] [facility] (ABNORMAL) Prothrombin Time (08/28/2013 3:50 PM EST) P athologist Signature PT 15.7 (H) 12.0 - 15.0 CERNER sec [facility] Comment: [facility] Transfusion Committee Guidelines: I NR less than 2.0, PTT less than OR equal to 43.5 seconds, or Fibrinogen gre ater than or equal to 100 mg/dl indicate adequate procoagulant activity for hemostasis in patients without underlying bleeding disorders. INR 1.2 (H) 0.9 - 1.1 [facility] Specimen Anatomical Collection Method Collection Time Receive d Time (Source) Location / / Volume Laterality Blood specimen 08/28/2013 3:50 PM 013 3:56 (specimen) EST PM EST Resulting Agency Comment Spec In Lab Leilani Keller MD HEMATOLOGY ORDERABLES Performing Organization Address City/[facility]/ZIP Code Phon e Number [address] [facility] POCT Glucose (08/28/2013 2:37 PM EST) P athologist Signature POC Glucose 94 60 - 199 [facility] mg/dL [facility] Comment: Supplemental ranges: <110 mg/dL before meals <200 mg/dL all other times of the day Specimen Anatomical Collection Method Collection Time Receive d Time (Source) Location / / Volume Laterality Blood specimen 08/28/2013 2:37 PM 013 2:37 (specimen) EST PM EST Leilani Keller MD POINT OF CARE TEST ORDERABLE S Performing Organization Address City/[facility]/[place] [address] CERNER MILLENNIUM POCT Glucose [...] Organization Address City/State/ZIP Code Phon e Number [address] CERNER MILLENNIUM POCT Glucose [...] CARE TEST ORDERABLE S Performing Organization Address City/[facility]/ZIP Code Phon e Number [address] CERNER MILLENNIUM (ABNORMAL) Differential, Automated (08/28/2013 11:40 AM EST) [facility] gist Method Time Signature Neutrophils % 99.0 [...] Organization Address City/State/ZIP Code Phon e Number [place] [phone] CERNER MILLENNIUM (ABNORMAL) CBC [...] Platelets 175 145 - 370 CERNER x10(3)/mcL [facility] RDWSD 40.2 35.0 - CERNER 46.0 fL [facility] RDWCV 12.5 10.9 - CERNER 14.4 % [facility] MPV 10.7 9.0 - 12.0 CERNER fL [facility] Specimen Anatomical Collection Method Collection Time Receive d Time (Source) Location / / Volume Laterality Blood specimen 08/28/2013 11:40 3 (specimen) AM EST 11:48 AM EST Resulting Agency Comment Spec In Lab Leilani Keller MD HEMATOLOGY ORDERABLES Performing Organization Address City/[facility]/ZIP Code Phon e Number [address] [facility] APTT (08/28/2013 11:40 AM EST) P athologist Signature PTT 32 25 - 35 sec [facility] Comment: Recommended therapeutic PTT range for fu ll dose unfractionated heparin is 80-114 seconds. Specimen Anatomical Collection Method Collection Time Receive d Time (Source) Location / / Volume Laterality Blood specimen 08/28/2013 11:40 3 (specimen) AM EST 11:48 AM EST Resulting Agency Comment Spec In Lab Leilani Keller MD HEMATOLOGY ORDERABLES Performing Organization Address City/[facility]/ZIP Code Phon e Number [address] [facility] (ABNORMAL) Prothrombin Time (08/28/2013 11:40 AM EST) P athologist Signature PT 16.0 (H) 12.0 - 15.0 [facility] Comment: [facility] Transfusion Committee Guidelines: I NR less than 2.0, PTT less than OR equal to 43.5 seconds, or Fibrinogen gre ater than or equal to 100 mg/dl indicate adequate procoagulant activity for hemostasis in patients without underlying bleeding disorders. INR 1.2 (H) 0.9 - 1.1 [facility] Specimen Anatomical Collection Method Collection Time Receive d Time (Source) Location / / Volume Laterality Blood specimen 08/28/2013 11:40 3 (specimen) AM EST 11:48 AM EST Resulting Agency Comment Spec In Lab Leilani Keller MD HEMATOLOGY ORDERABLES Performing Organization Address City/State/ZIP Code Phon e Number [place] [phone] CERNER MILLENNIUM (ABNORMAL) Comprehensive [...] intervals supplied above were not validated at [facility]. Results from pediatri c patients should be [...] Keller MD CHEMISTRY ORDERABLES Performing Organization Address City/[facility]/ZIP Code Phon e Number [address] CERNER MILLENNIUM (ABNORMAL) Magnesium (08/28/2013 11:40 AM EST) P athologist Signature Magnesium 0.50 (L) 0.69 - 1.07 CERNER mmol/L MILLENNIUM Specimen Anatomical Collection Method Collection Time Receive d Time (Source) Location / / Volume Laterality Blood specimen 08/28/2013 11:40 3 (specimen) AM EST 11:48 AM EST Resulting Agency Comment Spec In Lab Leilani Keller MD CHEMISTRY ORDERABLES Performing Organization Address City/[facility]/ZIP [facility] [place] [address] CERNER Plum DistrictENNIUM XR chest PA or AP- 1 view [...] Organization Address City/State/[place] [address] CERNER MILLENNIUM (ABNORMAL) BLOOD [...] Comment: Total Hemoglobin (in gm/dL) ?Based on [facility] Hematology ran ges: ?Age ?Referen ce Range [...] mmol/L CERNER MILL ENNIUM Comment: Noted by instrument assembler. Please note: Patients with WBC >100,000 may [...] Organization Address City/State/[place] [address] CERNER MILLENNIUM (ABNORMAL) BLOOD [...] Comment: Total Hemoglobin (in gm/dL) ?Based on [facility] Hematology ran ges: ?Age ?Referen ce Range [...] Organization Address City/State/[place] [address] CERNER MILLENNIUM (ABNORMAL) BLOOD GAS 2 ARTERIAL (08/28/2013 8:59 AM EST) Analysis Performed At Patho logist Time Signature pH Art 7.31 (L) CERNER MILLENNIUM pCO2 Art 48 (H) mmHg CERNER MILLENNIUM pO2 Art 93 mmHg CERNER MILLENNIUM HCO3 Art 23.3 mmol/L CERNER MILLENNIUM BE Art -3.0 mmol/L CERNER MILLENNIUM Hgb Blood Gas 11.9 (L) gm/dL CERNER MILLENNIUM Comment: Total Hemoglobin (in gm/dL) ?Based on [facility] Hematology ran ges: ?Age ?Referen ce Range [...] mmol/L CERNER MILL ENNIUM Comment: Noted by instrument assembler. Please note: Patients with WBC >100,000 may [...] Keller MD CHEMISTRY ORDERABLES Performing Organization Address City/[facility]/[place] [address] CERNER MILLENNIUM Prepare RBC (08/28/2013 8:40 AM EST) P athologist Signature Dispensed? Yes CERNER MILLENNIUM Specimen Anatomical Collection Method Collection Time Receive d Time (Source) Location / / Volume Laterality Blood specimen 08/28/2013 8:40 AM 013 8:38 (specimen) EST AM EST Leilani Keller MD BLOOD BANK ORDERABLES Performing Organization Address City/[facility]/ZIP Code Phon e Number [facility] [address] CERNER MILLENNIUM (ABNORMAL) BLOOD GAS 2 ARTERIAL (08/28/2013 8:00 AM EST) Analysis Performed At Patho logist Time Signature pH Art 7.42 CERNER MILLENNIUM pCO2 Art 42 mmHg CERNER MILLENNIUM pO2 Art 196 (H) mmHg CERNER MILLENNIUM HCO3 Art 26.3 (H) mmol/L CERNER MILLENNIUM BE Art 1.8 mmol/L CERNER MILLENNIUM Hgb Blood Gas 13.2 (L) gm/dL CERNER MILLENNIUM Comment: Total Hemoglobin (in gm/dL) ?Based on [facility] Hematology ran ges: ?Age ?Referen ce Range [...] Organization Address City/State/ZIP Code Phon e Number [address] CERNER MILLENNIUM (ABNORMAL) POCT [...] Organization Address City/State/ZIP Code Phon e Number [address] CERNER MILLENNIUM POCT Glucose [...] Organization Address City/State/[place] [address] CERNER MILLENNIUM Differential, Automated [...] Organization Address City/State/ZIP Code Phon e Number [address] [facility] Varicella zoster Antibody, IgG (08/28/2013 1:34 AM EST) P athologist Signature Varicella IgG Pos [facility] Specimen Anatomical Collection Method Collection Time Receive d Time (Source) Location / / Volume Laterality Blood specimen 08/28/2013 1:34 AM 013 8:31 (specimen) EST AM EST Resulting Agency Comment Spec In Lab Leilani Keller MD IMMUNOLOGY ORDERABLES Performing Organization Address City/[facility]/ZIP Code Phon e Number [address] [facility] Hepatitis C Antibody (08/28/2013 1:34 AM EST) Analysis Performed At Patho logist Time Signature Hepatitis C Ab Negative Negative [facility] Comment: Please note that as of 04/05/2013, [...] Keller MD IMMUNOLOGY ORDERABLES Performing Organization Address City/[facility]/ZIP Code Phon e Number [address] [facility] HIV (08/28/2013 1:34 AM EST) P athologist Signature HIV 1/2 Ab Negative Negative [facility] Specimen Anatomical Collection Method Collection Time Receive d Time (Source) Location / / Volume Laterality Blood specimen 08/28/2013 1:34 AM 013 1:36 (specimen) EST AM EST Resulting Agency Comment Spec In Lab Leilani Keller MD IMMUNOLOGY ORDERABLES Performing Organization Address City/[facility]/ZIP Code Phon e Number [address] [facility] CMV Antibody, IgG (08/28/2013 1:34 AM EST) P athologist Signature CMV IgG Neg Neg CERNER MILLENNIUM Specimen Anatomical Collection Method Collection Time Receive d Time (Source) Location / / Volume Laterality Blood specimen 08/28/2013 1:34 AM 013 8:31 (specimen) EST AM EST Resulting Agency Comment Spec In Lab Leilani Keller MD IMMUNOLOGY ORDERABLES Performing Organization Address City/[facility]/ZIP Code Phon e Number [address] CERNER MILLENNIUM APTT (08/28/2013 1:34 AM EST) P [...] Keller MD HEMATOLOGY ORDERABLES Performing Organization Address City/[facility]/ZIP Code Phon e Number [address] CERNER MILLENNIUM Prothrombin Time (08/28/2013 1:34 AM EST) P athologist Signature PT 13.5 12.0 - 15.0 CERNER sec MILLENNIUM Comment: [facility] Transfusion Committee Guidelines: I NR less [...] Keller MD HEMATOLOGY ORDERABLES Performing Organization Address City/[facility]/[place] [address] CERNER MILLENNIUM Phosphorus (08/28/2013 1:34 AM EST) athologist Signature Phosphorus 2.8 2.5 - 4.5 CERNER mg/dL MILLENNIUM Specimen Anatomical Collection Method Collection Time Receive d Time (Source) Location / / Volume Laterality Blood specimen 08/28/2013 1:34 AM 013 1:36 (specimen) EST AM EST Resulting Agency Comment Spec In Lab Leilani Keller MD CHEMISTRY ORDERABLES Performing Organization Address City/[facility]/ZIP Code Phon e Number [address] CERNER MILLENNIUM Magnesium (08/28/2013 [...] Organization Address City/State/ZIP Code Phon e Number [address] CERNER MILLENNIUM (ABNORMAL) Comprehensive [...] intervals supplied above were not validated at [facility]. Results from pediatri c patients should be [...] Organization Address City/State/ZIP Code Phon e Number [place] [phone] CERNER MILLENNIUM (ABNORMAL) CBC [...] Keller MD HEMATOLOGY ORDERABLES Performing Organization Address City/[facility]/ZIP Code Phon e Number [address] [facility] Antibody screen (08/28/2013 1:28 AM EST) Analysis Performed At Patho logist Time Signature Ab Screen Negative [facility] Interp [facility] Expires at [phone] [facility] [phone] on: MILLENNIUM Specimen Anatomical Collection Method Collection Time Receive d Time (Source) Location / / Volume Laterality Blood specimen 08/28/2013 1:28 AM 013 1:33 (specimen) EST AM EST Resulting Agency Comment Spec In Lab Leilani Keller MD BLOOD BANK ORDERABLES Performing Organization Address City/[facility] Phon e Number [address] [facility] ABO/Rh Typing (08/28/2013 1:28 AM EST) P athologist Signature ABORh Type O Pos CERNER MILLOrtho Neuro ManagementIUM Specimen Anatomical Collection Method Collection Time Receive d Time (Source) Location / / Volume Laterality Blood specimen 08/28/2013 1:28 AM 013 1:33 (specimen) EST AM EST Resulting Agency Comment Spec In Lab Leilani Keller MD BLOOD BANK ORDERABLES Performing Organization Address City/State/[place] [address] [employer]IUM XR chest routine PA & lateral (08/28/2013 [...] 441 ms MUSE SYSTEM (Bezet) Calculated P Novice 52 degrees MUSE SYSTEM Calculated R Novice 60 degrees MUSE SYSTEM Calculated T Novice 38 degrees MUSE SYSTEM INTERPRETATION Sinus bradycardia [...] (ABNORMAL) POCT Glucose (08/27/2013 11:35 PM EST) athologist Signature POC Glucose 242 (H) 60 - 199 CERNER mg/dL [facility] Comment: Supplemental ranges: <110 mg/dL before meals <200 mg/dL all other times of the day Specimen Anatomical Collection Method Collection Time Receive d Time (Source) Location / / Volume Laterality Blood specimen 08/27/2013 11:35 3 (specimen) PM EST 11:35 PM EST Leilani Keller MD POINT OF CARE TEST ORDERABLE S Performing Organization Address City/State/[place] [address] [facility] documented in this encounter Visit Diagnoses Not on filedocumented in this encounter Active and Recently Administered Medications Times are shown in EST. Scheduled Medication Order 08/31/2013 09/01/2013 09/02/2013 aspirin tablet 325 mg (CANCELED) 0900 (Given - Provider: Briana Arboleda RN) 0900 (Given - Provider: Yolie Bearden RN) 0824 (Given - Provider: Ashley Sanders, MIGUELITO) 325 mg, Oral, DAILY, First dose on Sun at 1400, Until Discontinued, Routine citalopram (celeXA) [...] Taylor, MIGUELITO) 09 (Given - Provider: Yolie Bearden RN)2100 (Given [...] RN - Comment: dose not recieved until 909) 1 g, Intravenous, ONCE, 1 dose, Thu09/02/13 at 0800, for 60 Minut es mycophenolate (CELLCEPT) capsule 750 mg (CANCELED) 080 0 (Given - Provider: Sylvain Arboleda RN)2133 (Given - Provider: Julia Taylor RN - Comment: med was not available at due time) 08 (Given - Provider: Yolie watts RN)1999 (Given [...] RN) 0200 (Given - Provider: Isis London, R N)0824 (Given - Provider: Ashley Sanders RN) 4.5 [...] Vanessa 09/01/13 at 0945, Last dose on Thu09/01/13 at [...] Yolie Bearden RN) 0221 (Given - Provider: Flavia Au)0924 (Given - Provider: Ashley Sanders RN) 2-4 mg, Oral, EVERY 3 HOURS PRN, Startin g 08/31/13 at 0832, Until 09/02/13 at 1555, Pain, Routine 1900 (Given - [...] Montalvo, MIGUELITO)2008 (Given - Provider: Ni Whyte, MIGUELITO) 1501 (Given - Provider: Yolie Bearden, MIGUELITO)1846 (Given - Provider: Yolie Bearden, MIGUELITO) 0947 (Given - Provider: Ni Barraza RN) 4-8 mg, Intravenous, EVERY 8 HOURS PRN, Starting 08/29/13 at 0738, Until 09/02/13 at 1555, Nausea, Routine prochlorperazine (COMPAZINE) injection 5 mg (CANCELED) 0036 (Given - Provider: Julia Taylor RN) 5 mg, Intravenous, EVERY 30 [...] Routine documented in this encounter Care Teams Outreach Manager Relationship Specialty Start Date End Date Anna Dent MD PCP - General 12/03/10 [address] [place] [address] documented as of this encounter
--- OUTSIDE RECORDS SUMMARY | 2022-03-13 18:34 | XMS_ITS | Encounter Summary ---
:1965 Author Organization [facility] [place] [address] Care Team Providers Name Role Phone Anna Mullen MD Primary Care Provider Encounter Details Date Type Department Care Team Description 02/07/2013 External Results [place] [address] Social History Tobacco Use Types Packs/Day [...] Procedure Name Priority Date/Time Associated Diagnosis Comme [facility] MONTHLY PRA - PANCREAS Routine 02/03/2013 documented in this encounter Results Transplant: Monthly PRA (Pancreas) - EXTERNAL collections (02/03/2013) Narrative This result has an attachment that is no t available. Historical Provider CHEMISTRY ORDERABLES documented in this encounter Visit Diagnoses Not on filedocumented in this encounter Care Teams Ms Sql Server Developer Relationship Specialty Start Date End Date Anna Mullen MD PCP - General 12/03/10 [address] [place], [place] [id number] documented as of this encounter
--- OUTSIDE RECORDS SUMMARY | 2022-03-13 18:34 | XMS_ITS | Encounter Summary ---
:1965 Author Organization [facility] [place] [address] Care Team Providers Name Role Phone Anna Mullen MD Primary Care Provider Encounter Details Date Type Department Care Team Description 02/07/2013 Office Visit Endocrinology at [facility] Sheila Lane, CDE [facility] 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 [address] [place] [address] Social History Tobacco Use Types Packs/Day Years Used Date Never Smoker Smokeless Tobacco: Never Used Alcohol Use Standard Drinks/Week Comments No 0 (1 standard drink = 0.6 oz pure alcoho l) history of abuse, stopped 1996 Sex Assigned at Date Recorded Male 05/29/2021 11:28 PM EDT documented as of this encounter Progress Notes Divya Coles MD - 02/06/2013 11:49 AM EDT CC: Here for f/u of type 1 DM Date of Dx:1974 Regimen ____ oral agents only ____ basal insulin __x__insulin/pump Diagnosis codes 250.03 _x__ Type 1 250.02 ____Type 2 Glucose test strip brand: one touch Number of Tests prescribed per day ___ 2 ___ 3 _x__ 4 ___ 5-8 ___>8 Prescriber: _ ONIEL Zavala MD x_ALEX Aguirre _ Lise Richards MD _ Nickie Berger MD _x Sandra Coles MD Justification for more than 3 tests a day ___x_ prevent severe hypoglycemia ____ prevent severe hyperglycemia ____ widely fluctuating blood sugars ____ overnight hypoglycemia Duration of need ___ lifetime until ___/___/___ Last Hga1c 7.9%, 02/10; 7.6%,09/12 DIABETES REGIMEN: MiniMed insulin pump. Basal rates 12 a.m. 1.2, 2 a.m. 1.25, 6 a.m. 1.55, 11 a.m. 1.55, 5 p.m. 1.25, 9 p.m. 1.25, and 11 p.m. 1.25 (33.2). Sensitivity Factor: Midnight 30 and 6 p.m. 28. Carb Ratio: Midnight 11 and 4:30 p.m. 13. TDD 54-64 COMPLICATIONS: Dentist-11/10 , Eye doctor- 03/10- upcoming 03/12- . Microalbumin less than 14, creatinine 0.85, 11/10. He has gastroparesis, but no peripheral neuropathy. 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 Has nonocclusive disease with slightly decreased ejection fraction of 52%. Lipids- total cholesterol 131, HDL 52, and LDL 73, 09/12. DIABETIC HEALTH MAINTENANCE: Beta-Sigrid: coreg 3.125 bid. Aspirin: 325 mg a day. ARB: Cozaar 100 mg a day. Statin: Pravastatin 40 mg a day. Flu Shot: 2011. Pneumovax: [address] Mullen.. He is a nonsmoker. TSH 4.97, 61/13, on levothyroxine 175 mg a day.- will increase to levothyroxine 200 mcg/dand separate from magnesium. HISTORY: Since his last visit, Brant had a lot of trouble with his back. He has developed a lumbar radiculopathy radiating down his right leg, and he ended up getting a cortisone injection. Blood sugars were high for about four weeks. He bumped up his basal rates by 0.3 units per hour and then kept taking more correction and now finally blood sugars are coming back down. He is checking 6 to 10 times a day. Fastings run 120 to 160, lunch 100 and 200, and supper are 100 to 200. He gets hypoglycemic once or twice a week usually around 4:00 PM. Exercise is limited due to his back pain, but he is doing some mowing, some gardening work, and work around the house. Diet for breakfast is usually a donut, sometimes a breakfast burrito. Mid morning peanut butter crackers. For lunch yesterday, he had a subway sandwich, chicken teriyaki; afternoon snack, he had more crackers; for supper, he had three slices of pizza, the night before Jolly's pie and evening snack usually a sandwich. His diabetes has been complicated by gastroparesis, which is under reasonable control, and he is followed regularly in the cardiology clinic. 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 PAST SURGICAL HISTORY: Shoulder, carpal tunnel release, and appendectomy. Current Outpatient Prescriptions on File Prior to Visit Medication Sig Dispense Refill ??? promethazine (PHENERGAN) [address] 25 mg rectally daily as needed. ??? sildenafil (VIAGRA) 100 mg tablet Take 1 tablet by mouth as needed for Erectile Dysfunction. 90 day supply Dx code :250.60 60 tablet 6 ??? pantoprazole (PROTONIX) 40 mg tablet Take 1 tablet by mouth 2 times daily. 180 tablet 3 ??? insulin aspart (NOVOLOG) 100 unit/mL vial injection Inject 80 Units subcutaneously daily. Approximally 80 units subcutaneous by pump. 90 mL 3 ??? Blood Sugar Diagnostic (ONE TOUCH ULTRA TEST) test strip 1 each by Other route See Admin Instructions. HYPOGLYCEMIA UNAWARENESS COMPLICATION OF gatroparesis DX 250.01 1200 each 3 ??? glucagon, human recombinant, 1 mg injection Inject 1 mL as directed as needed. 2 each 11 ??? divalproex (DEPAKOTE ER) 250 mg 24 hr tablet Take 1 tablet by mouth daily. Call to adjust in 1 week. 90 tablet 3 ??? ondansetron (ZOFRAN) 4 mg tablet Take 4 mg by mouth as needed. ??? magnesium oxide (MAG-OX) 400 mg tablet Take 400 mg by mouth 3 times daily. ??? trimethobenzamide (TIGAN) 300 mg [...] mg by mouth 2 times daily. ??? [place]-3 Fatty Acids-Vitamin E (FISH OIL) 1,000 mg [...] tablet Take 325 mg by mouth daily. Allergies Allergen Reactions ??? Nexium (Esomeprazole Magnesium) Diarrhea Any acid reflux medication causes severe diarrhea ??? Prilosec (Omeprazole Magnesium) Diarrhea ??? Reglan (Metoclopramide Hcl) TD ??? Simvastatin SOCIAL HISTORY: He is , has two biological, two adopted, and two step children. Nonsmoker. Quit drinking in 1996. REVIEW OF SYSTEMS: Complete review of systems is positive for some hypothyroid symptoms cold intolerance, fatigue, edema, and myalgias. He also has gastroparesis, and the back and leg pain. Remainder of the review of systems is negative. PHYSICAL EXAMINATION: Vital Signs: His blood pressure is 125/74, pulse 64, weight 234 pounds; increased 9 pounds. In general, he looks well. Skin: Smooth, warm, and dry. No ulcerations. His left great toe is about twice the size of his right great toe. He has had infections and fractures there in the past, but it is stable. No signs of infection. Cardiovascular: 2+ pulses. No edema. On neurologic exam, decreased light touch sensation in the toes. Psychiatric: Mood and affect are appropriate. LABORATORY TESTS: Hemoglobin A1c 7.9%. TSH 4.97. IMPRESSION: 1. Diabetes. Blood sugar control is a little bit worse, but I expect it is due to the high blood sugars when he had the steroids and now blood sugars are doing fine. In fact, Brant is having some lows in the afternoon. So, we will lower his basal rate at 11:00 AM to 1.4 units per hour, so basal rates will be midnight 1.2 at 2:00 AM, 1.25 at 6:00 AM, and 1.55 at 11:00 AM, 1.4 at 1700, 1.25 at 2100, 1.25 at 2300 and carb ratio midnight, 11; 4:30 PM 13. Correction factor at midnight 30, 60, and 28. 2. Hypothyroidism. He has hypothyroidism. He is slightly under replaced on 175 mcg a day. He is taking it with his magnesium. I told him to separate it from his magnesium by at least a couple of hours and to take it on an empty stomach and we will increase the dose to 200 mcg a day and we will check TSH at his next visit. PLAN: 1. Adjust insulin pump settings as noted above. 2. Increase levothyroxine 200 mcg per day and separate from magnesium. 3. Follow up in six months with hemoglobin A1c and TSH [facility] labs. documented in this encounter Plan of Treatment Not on filedocumented as of this encounter Results (ABNORMAL) TSH (09/06/2013 9:45 AM EST) P athologist Signature TSH 7.43 (H) 0.27 - 4.20 CERNER mcIU/mL MILLENNIUM Specimen Anatomical Collection Method Collection Time Receive d Time (Source) Location / / Volume Laterality Blood specimen 09/06/2013 9:45 AM 014 9:53 (specimen) EST AM EST Resulting Agency Comment Spec In Lab Divya Coles MD CHEMISTRY ORDERABLES Performing Organization Address City/State/ZIP Code Phon e Number [place] [phone] CERNER MILLENNIUM (ABNORMAL) Hemoglobin A1c (09/06/2013 9:45 AM EST) Analysis Performed At Patho logist Time Signature Hemoglobin A1C 7.4 (H) <=5.6 % CERNER MILLENNIUM Comment: As of 2013 the methodology for [...] Mellitus, Diabetes Care 2013; 36: Suppl. 1, S67-75 Est Avg Gluc 166 mg/dL CERNER MILLENNIUM Comment: eAG equivalents for [...] ADA website: ??http://professional.diabetes.org/gluc osecalculator.aspx Edinson GRISSOM, Nathaniel J, Ari R, et al. ??Tr anslating the A1C assay into estimated average glucose values. ??Diabetes Care 2008:31(8):4882-4054. Specimen Anatomical Collection Method Collection Time Receive d Time (Source) Location / / Volume Laterality Blood specimen 09/06/2013 9:45 AM 014 9:53 (specimen) EST AM EST Resulting Agency Comment Spec In Lab Divya Coles MD CHEMISTRY ORDERABLES Performing Organization Address City/State/[place] [address] [facility] documented in this encounter Visit Diagnoses Diagnosis Type 1 DM with polyneuropathy - Primary Type I (juvenile type) diabetes mellitus with neurological manifestations, not stated as uncontrolled Hypothyroid Unspecified hypothyroidism documented in this encounter Care Teams Jockey'S Agent Relationship Specialty Start Date End Date Anna Mullen MD PCP - General 12/03/10 [address] [place] [address] (work) documented as of this encounter
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
--- OUTSIDE RECORDS SUMMARY | 2022-03-13 18:34 | XMS_ITS | Encounter Summary ---
:1965 Author Organization [facility] Address [facility] [address] [place] [address] Care Team Providers Name Role Phone Anna Mullen MD Primary Care Provider Encounter Details Date Type Department Care Team Description 01/06/2013 Orders Only Anesthesiology Anibal Owens MD [facility] [address] [place] [address] [address] [phone] [place], [place] [address] (Wo rk) Social History Tobacco Use Types [...] Associated Diagnosis Comme nts FILM LIBRARY Routine 01/06/2013 8:15 AM Results f or this STORAGE ONLY PAIN EDT procedure are in CLINIC C ARM the results section. documented in this encounter Results Film Library-storage only pain clinic C-arm (01/06/2013 8:15 AM EDT) Specimen (Source) Anatomical Collection Method Collection Time Re ceived Time Location / / Volume Laterality 01/06/2013 8:15 AM EDT Narrative RAD - 04/20/2014 6:14 PM EDT This is a non-reportable exam. Procedure Note Arnold Mccarthy - 04/20/2014Formatti ng of this note might be different from the original. This is a non-reportable exam. Anibal Owens MD IM FILM LIBRARY ORDERABLES Performing Organization Address City/State/ZIP Code Phon e Number [facility] [address] [place] [address] documented in this encounter Visit Diagnoses Not on filedocumented in this encounter Care Teams Senior Site Manager Relationship Specialty Start Date End Date Anna Mullen MD PCP - General 12/03/10 [address] [place] [address] documented as of this encounter
--- OUTSIDE RECORDS SUMMARY | 2022-03-13 18:34 | XMS_ITS | Encounter Summary ---
:1965 Author Organization [facility] [place] [address] Care Team Providers Name Role Phone Anna Mullen MD Primary Care Provider Reason for Visit Reason Onset Date Comments Medication Refill 04/21/2013 Encounter Details Date Type Department Care Team Description 04/21/2013 Refill Endocrinology at [facility] Divya Hermosillo MD [facility] [place] [address] ENDOCRINOLOGY DEPT. [phone] [place], [place] [address] (Wo rk) Social History Tobacco [...] on filedocumented in this encounter Care Teams Digital Sales Assistant Relationship Specialty Start Date End Date Anna Mullen MD PCP - General 12/03/10 [address] [place], [place] [address] documented as of this encounter
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
--- OUTSIDE RECORDS SUMMARY | 2022-03-13 18:34 | XMS_ITS | Encounter Summary ---
:1965 Author Organization [facility] Address [facility] [place] [address] Care Team Providers Name Role Phone Anna Mullen MD Primary Care Provider Reason for Visit Reason Comments Diabetes Encounter Details Date Type Department Care Team Description 02/07/2013 Office Visit Endocrinology at [facility] Sheila Lane, Diabetes type 1, [facility] CDE uncontrolled (Primary Drive [facility] ) [place] [address]ENTER [phone] ENDOCRINOLOGY DEPT. [place], [place] [address] Social History Tobacco Use Types [...] Reading Time Taken Comments Blood Pressure 125/74 02/07/2013 10:03 AM EDT Pulse 64 02/07/2013 10:03 AM EDT Temperature - - Respiratory Rate - - Oxygen Saturation - - Inhaled Oxygen Concentration - - Weight 106.1 kg (234 lb) 02/07/2013 10:03 AM EDT Height - - Body Mass Index 31.74 01/06/2013 8:19 AM EDT documented in this encounter Patient Instructions Patient InstructionsSheila Landeros RN - 02/10/2013 8:06 PM EDT This patient will carry Skittles to treat low blood sugars. He will test frequently as he doesn't have low symptoms. documented in this encounter Progress Notes Sheila Landeros RN - 02/10/2013 9:36 AM EDT Diabetes Self-Management Education Program Follow- up Visit Referring Provider: ANNA MULLEN MD Type of diabetes: Diabetes mellitus Type I, under fair control. Medtronic 723 Mn= 1.2 2= 1.25 6= 1.55 11= 1.55 17=1.25 21= 1.25 23= 1.25 Total basal= 33.2 units TDD= 56-58 units Mn= 11:1 16:30= 13:1 CF Mn= 30 18= 28 Target = 100-110 Reassessment Ratings: 1=needs instruction 2=needs review 3=comprehends du points 4=demonstrates competency N/A= not assessed Topic Reassessment Rating Comment/Re-education Knowledge of diabetes disease process 3 Nutrition Management 3 Up 9 lbs since 01/06/13 Breakfast= breakfast burrito or donut, no calorie drink (6-7 am) Snack prn= crax Lunch: sandwich (subway) 3 pm= sandwich and chips Dinner (6-7 pm) pizza or corrigan's pie Snack: sandwich (bologna) We discussed his higher fat choices and reviewed lower fat eating. Understanding of Physical Activity 3 Limited activity due to back problems. Some gardening. Pain management reviewed. Use of the temp basal rate discussed. Medication Use 3 Basal lowered to 1.4 at 11 am to prevent pre-lunch lows Monitoring and using results 3 smbg 10-12 x/day bgs 50-200's Target bg goals reviewed Use of the correction factor discussed. Online Prasad Pro used to download his data. Data reviewed. Preventing Acute Complications 3 + lows (30's) and no symptoms. Patient is working in his garden a lot and having lows. Need for testing more discussed. Preventing Chronic Complications, Risk Reduction 3 Back bothers ( scoliosis is getting worse)? Surgery for a new pancreas in the fall. Discussed this. Psychosocial Adjustment 3 This patient is eager to get a new pancreas. He discussed this at length. Behavior Change Strategies 3 Behavior goals reviewed. Last behavior goal:This patient will use the dual wave bolus due to his gastroparesis Goal Achievement: 100% Next goal: Patient to carry Skittles to treat low blood sugar symptoms Follow-up/DSMS Plan: This patient will go to a local insulin pump support meeting near his home Time Spent Diabetes Education/Medical Nutrition Therapy: 35 minutes documented in this encounter Plan of Treatment Not on filedocumented as of this encounter Visit Diagnoses Diagnosis Diabetes type 1, uncontrolled - Primary Type I (juvenile type) diabetes mellitus without mention of complication, uncontrolled documented in this encounter Care Teams Iron Handler Relationship Specialty Start Date End Date nAna Mullen MD PCP - General 12/03/10 [address] [place] [address] documented as of this encounter
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
--- OUTSIDE RECORDS SUMMARY | 2022-03-13 18:34 | XMS_ITS | Encounter Summary ---
:1965 Author Organization [facility] [place] [address] Care Team Providers Name Role Phone Anna Mullen MD Primary Care Provider Encounter Details Date Type Department Care Team Description 02/07/2013 Hospital Encounter Laboratory Shaji Zavala, Diabetes mellitus type 1 wit h complications; [facility] Hypothyroid [facility] [address] ENDOCRINOLOGY [phone] [place] [address] Social History Tobacco Use Types Packs/Day Years [...] mg Take 1 tablet by 90 tablet 10/2013 (500 mg) Tab mouth 3 times [...] Take 2 capsules by 180 capsule 6 10/2013 mouth 2 times daily. 4 S/P Pancreas Transplant 08/28/2013 Dx V42.83 Diabetic Supplies, Fax form to [facility] 100 each 09/02/2013 0 Miscellan. [facility] for testing 4 supplies 10 times [...] 70 tablet 6 1 mg tablet 20mg [id number]; 3 Then 15mg x7days; Then 10mg x7days; [...] 2012 40 mg tablet mouth daily. 4 levothyroxine (SYNTHROID) Take 1 tablet by 90 tablet 4 01/29 200 mcg tablet mouth daily. 4 promethazine (PHENERGAN) Place rectally daily 0 25 mg suppository as needed. 4 pantoprazole (PROTONIX) Take 1 tablet by 180 tablet 3 2011 40 mg tablet mouth 2 times daily. 3 Blood Sugar Diagnostic 1 each by Other route See Ad min Instructions. HYPOGLYCEMIA UNAWARENESS COMPLICATION OF gatroparesis 1200 each 3 05/11/2012 (ONE TOUCH ULTRA TEST) DX 250.01 3 test strip insulin aspart (NOVOLOG) Inject 80 Units 90 [...] mouth 0 tablet 2 times daily. 4 [place]-3 Fatty Take 5,000 mg by 0 01/08/201109/06 Acids-Vitamin E (FISH mouth daily. 4 OIL) 1,000 mg Cap Acetone, Urine, [facility]Non-Drug; 0 (ACETONE, URINE, TEST) Combo Route) route. [...] Priority Date/Time Associated Diagnosis Comme nts TSH Routine 02/07/2013 9:55 AM Hypothyroid Results f or this EDT procedure are i n the results section. HEMOGLOBIN A1C Routine 02/07/2013 9:55 AM Diabetes mellitus ty pe Results for this EDT 1 with complications procedu re are in the results section. documented in this encounter Results (ABNORMAL) TSH (02/07/2013 9:55 AM EDT) P athologist Signature TSH 4.97 (H) 0.27 - 4.20 CERNER mcIU/mL MILLENNIUM Specimen Anatomical Collection Method Collection Time Receive d Time (Source) Location / / Volume Laterality Blood specimen 02/07/2013 9:55 AM 013 (specimen) EDT 10:00 AM EDT Resulting Agency Comment Spec In Lab Shaji Zavala MD CHEMISTRY ORDERABLES Performing Organization Address City/State/[place] [address] CERNER M[place]ENNIUM (ABNORMAL) Hemoglobin A1c (02/07/2013 9:55 AM EDT) Analysis Performed At Patho logist Time Signature Hemoglobin A1C 7.9 (H) 4.3 - 6.1 CERNER % M[place]ENNIUM Comment: The [place] Diabetes Association (ADA) has stated that HbA1c values >or= 6.5% are consistent with the diagnosis of yadi betes mellitus. In the absence of hyperglycemia (i.e. plasma glucose > 200 mg/dL) or classic symptoms of hyperglycemia a repeat measurement of Hb A1c should be performed on a separate sample to confirm the diagnosis. The ADA also considers an HbA1c value be tween 5.7% and 6.4% to be consistent with an increased risk of diabetes (pred iabetes). Patients with an HbA1c value in this range should be counseled about their increased risk of progressing to diabetes. Reference: Position Statement: Standards of Medical Care in Diabetes 2013. Diabetes Care 2013:36;suppl 1:S11 -S66. Est Avg Gluc 180 mg/dL CERNER MILLENNIUM Comment: eAG equivalents for HbA1c percentages: HbA1c(%) ?eAG(mg/dL) 6.0 ?126 6.5 ?140 7.0 ?154 7.5 ?169 8.0 ?183 8.5 ?197 9.0 ?212 9.5 ?226 10.0 ? 240 Limitations: The eAG calculation has not been validated on women, individuals below 18 years old and above 70 years old, and individuals with hemoglobinopathies. Additional resources are available on [facility] ADA website: ??http://professional.diabetes.org/gluc osecalculator.aspx Edinson GRISSOM, Nathaniel J, Ari R, et al. ??Tr anslating the A1C assay into estimated average glucose values. ??Diabetes Care 2008:31(8):7029-1764. Specimen Anatomical Collection Method Collection Time Receive d Time (Source) Location / / Volume Laterality Blood specimen 02/07/2013 9:55 AM 013 (specimen) EDT 10:00 AM EDT Resulting Agency Comment Spec In Lab Shaji Zavala MD CHEMISTRY ORDERABLES Performing Organization Address City/State/[place] [address] [facility] documented in this encounter Visit Diagnoses Diagnosis Diabetes mellitus type 1 with complicati ons Type I (juvenile type) diabetes mellitus with unspecified complication, not stated as uncontrolled Hypothyroid Unspecified hypothyroidism documented in this encounter Care Teams Grey Goods Tester Relationship Specialty Start Date End Date Anna Mullen MD PCP - General 12/03/10 [address] [place] [address] documented as of this encounter
--- OUTSIDE RECORDS SUMMARY | 2022-03-13 18:35 | XMS_ITS | Encounter Summary ---
:1965 Author Organization [facility] [place] [address] Care Team Providers Name Role Phone Anna Mullen MD Primary Care Provider Reason for Visit Reason Comments Pancreas Transplant Evaluation Encounter Details Date Type Department Care Team Description 11/15/2012 Office Visit Solid Organ CLINIC, DR FRYE DM (diabetes mellitus) (Primary Dx); Transplant at [facility] Eriberto Melgar MD [facility] [place] [address] Awaiting [place] [id number] Social History Tobacco Use Types Packs/Day Years Used Date Never Smoker Smokeless Tobacco: Never Used Alcohol Use Standard Drinks/Week Comments No 0 (1 standard drink = 0.6 oz pure alcoho l) history of abuse, stopped 1996 Sex Assigned at Date Recorded Male 05/29/2021 11:28 PM EDT documented as of this encounter Last Filed Vital Signs Vital Sign Reading Time Taken Comments Blood Pressure 142/84 11/15/2012 9:41 AM EDT Pulse 57 11/15/2012 9:41 AM EDT Temperature 36.7 ??C (98.1 ??F) 11/15/2012 9:41 AM EDT Respiratory Rate 20 11/15/2012 9:41 AM EDT Oxygen Saturation 96% 11/15/2012 9:41 AM EDT Inhaled Oxygen Concentration - - Weight 105.2 kg (232 lb) 11/15/2012 9:41 AM EDT Height 182.9 cm (6') 11/15/2012 9:41 AM EDT Body Mass Index 31.46 11/15/2012 9:41 AM EDT documented in this encounter Progress Notes Nora Quiroz MSW - 11/18/2012 10:15 AM EDT Presenting Problem: Pt presented to clinic for an RV 6 visit as he is on the cadaveric wait list fora pancreas transplant. Lives with: Pt lives with his . He denied any concern about housing at this time. Children: Pt has 2 biological children, 2 adopted children, 2 step children. They are all supportive, involved and available. Support system: Pt has excellent support from his family. They all live close and are easily accessible. His will be the primary caregiver with support from various family members. 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 He has some financial concerns but denied falling behind in bills. He has excellent prescription program and is not concerned about affording medications. Mental Health History: No reported history of mental health symptomatology Abuse History: none Substance Abuse: none Legal History: no Stressors: Pt has few stressors in his life. He james through the support of family and friends. He also enjoys working on [employer] puzzles and doing yard work. Coping Skills: support from family, friends, sudoku, yard work. Transplant related concerns: His only transplant related concern is that it goes well. Advanced Directives: Pt has a directive that he is working on. He plans to bring a copy when completed. Assessment: Pt is a 47 yo man who would like a pancreas transplant to improve his quality of life. He has excellent support from family and friends. He has a orthodoxy that he is involved with but he has not discussed his need for transplant with them. Pt has good insurance with no concern for affording medications at this time. Pt has good coping skills and no significant psychosocial history. At this time, there do not appear to be any significant psychosocial barriers to transplant. Plan: Pt to provide a copy of his advanced directives once completed. SW will remain available for support and resources. Nora Quiroz LCSW Donna Manzano - 11/15/2012 10:47 AM EDT Transplant Instructional Interventionist Note: Met with patient at RV6 waitlist follow up visit to review medical and pharmacy coverage for transplant services. He continues to be covered by [employer] through his employer and [employer] through his 's employer. He also has 2 prescription drug plans, however the secondary drug plan will not act as a secondary payor to his primary drug plan. We reviewed the post transplant medication list in detail, including estimated copays for each medication - A copy of this list was provided to the patient. They are facing approximately $150 per monthin post transplant medication costs. This can be reduced by approximately $112 with the use of copaycards. He states that he can afford his post transplant medications. He has no further questions at this time. Primary Coverage:[facility] [employer]) - patient's employer Secondary:[employer] - Spouse's employer Pharmacy:[facility] - patient's employer ALL GENERICS ARE $0 Drug Dose/Form # for 30 Days Copay 30 Day Supply PA Required? Mail Order Available Copay 90 Day Supply Prograf 1mg cap 180 caps $40 PA - [phone] $ Cellcept 250 mg cap 180 caps $40 [place]- [phone] $ Myfortic 360 mg tab 120 tabs $ $ Bactrim SS tab 30 tabs $0 $ Mepron 750 mg/5ml 150 ml $ $ Diltiazem CD 120 mg tablet 30 tabs $0 $ K Phos Neutral 250 mg tab 120 tabs $31.02 $ Magnesium Gluconate 500 mg tab 120 tabs $9 - $25 OVER THE COUNTER, PAIGE AT LOCAL PHARMACY $ Nexium 40 mg cap 30 tabs $ States he can't take this $ Pantoprazole $0 Patient states he takes Pantoprazole and pays $0 due to it being generic Nystatin 100K units/ml 600 ml $0 $ Valcyte 450 mg tab 60 tabs $40 $ Valtrex 500 mg tab 60 tabs $0 $ Eriberto Melgar MD - 11/15/2012 10:30 AM EDT Transplant Nephrology Follow Up Reese Shukla [id number] 1965 TRANSPLANT HX: Pt here for continued [...] episodes, as many as 1-2 per week. But recently those havebeen better with lows being the 40s. Dr. Coles has been working closely with him. He is currentlyon insulin pump. He otherwise feels well and has good exercise capacity. He asked if he could participate in a trial for an experimental medicine Dr. Vu is recommending to Rx gastroparesis. I told him as long as it was 1) not a biological antibody and 2)did not interferewith the CYP 3A4 enzyme system. He will discuss this with Dr. Vu. ROS: Positive for hypoglycemia, seizures with them when RBS falls below 30 mg/dL. Denies fevers, chills, nausea, vomiting, diarrhea, abd pain, chest pain, sob. Medications: sildenafil (VIAGRA) 100 mg tablet; pantoprazole (PROTONIX) 40 mg tablet; insulin aspart (NOVOLOG) 100 unit/mL vial injection; Blood Sugar Diagnostic (ONE TOUCH ULTRA TEST) test strip; glucagon, human recombinant, 1 mg injection; divalproex (DEPAKOTE ER) 250 mg 24 hr tablet; ondansetron (ZOFRAN) 4 mg tablet; magnesium oxide (MAG-OX) 400 mg tablet; trimethobenzamide (TIGAN) 300 mg capsule; citalopram (CELEXA) 20 mg tablet naproxen sodium (ANAPROX) 550 mg tablet; verapamil (CALAN-SR) 240 mg CR tablet; amlodipine (NORVASC)5 mg tablet; carvedilol (COREG) 3.125 mg tablet; levothyroxine (SYNTHROID) 175 mcg tablet; losartan (COZAAR) 100 mg tablet; pravastatin (PRAVACHOL) 40 mg tablet; traMADol (ULTRAM) 50 mg tablet; Sieper-3 Fatty Acids-Vitamin E (FISH OIL) 1,000 mg Cap; Acetone, Urine, Test (ACETONE, URINE, TEST) Strp; hydrOXYzine (VISTARIL) 25 mg capsule hydrochlorothiazide (HYDRODIURIL) 25 mg tablet; CALCIUM CARBONATE (CALCIUM 600 ORAL); GLUCOSAMINE HCL/CHONDRO ROGERS A (GLUCOSAMINE-CHONDROITIN ORAL); multivitamin (THERAGRAN) tablet; aspirin 325 mg tablet; promethazine (PHENERGAN) 25 mg suppository Allergies / ADRs: Allergies Allergen Reactions ??? Simvastatin ??? Nexium (Esomeprazole Magnesium) Diarrhea Any acid reflux medication causes severe diarrhea ??? Prilosec (Omeprazole Magnesium) Diarrhea PHYSICAL EXAM: Filed Vitals: 11/15/12 0941 BP: 142/84 Pulse: 57 Temp: 36.7 ??C (98.1 ??F) TempSrc: Oral Resp: 20 Height: 182.9 cm (6') Weight: 105.235 kg (232 lb) SpO2: 96% Appearance - Alert, Comfortable. Skin - No exanthem. HEENT - Mucous membranes moist. Chest: Lungs clear to ausculatation w/o wheezes/ rhonchi/ crackles. Heart - S1 and S2 clear w/o murmur, gallop, or rub. JVP not elevated. Abd - Soft. + BS. No bruit. Non tender. No organomegaly. Ext - Warm. No cyanosis. trace dependent edema. Labs: Results for REESE SHUKLA ( ) as of 11/15/2012 10:36 Ref. Range 09/14/2012 07:53 09/14/2012 08:12 11/15/2012 08:37 Total Bilirubin Latest Range: 0.2-1.3 mg/dL 1.1 Bili, Direct Latest Range: 0.0-0.3 mg/dL 0.2 Alk Phos Latest Range: 40-120 unit/L 89 AST Latest Range: 0-39 unit/L 17 ALT Latest Range: 0-55 unit/L 17 Sodium Latest Range: 135-145 mmol/L 136 Potassium Latest Range: 3.5-5.0 mmol/L 4.2 Chloride Latest Range: 98-107 mmol/L 96 (L) CO2 Latest Range: 22-31 mmol/L 30 Anion Gap Latest Range: 5-15 mmol/L 10 BUN Latest Range: 10-20 mg/dL 9 (L) Creatinine Latest Range: 0.80-1.50 mg/dL 1.01 Estimated GFR Latest Range: >=60 >60 Glucose Lvl Latest Range: 60-199 mg/dL 185 Calcium Latest Range: 8.5-10.5 mg/dL 9.2 Hemoglobin A1C Latest Range: 4.3-6.1 % 7.6 (H) Est Avg Gluc No range found 171 Total Protein Latest Range: 6.4-8.3 gm/dL 6.8 Albumin Latest Range: 3.2-5.2 gm/dL 4.3 25-OH Vit D Total Latest Range: 30-100 ng/mL 33 Chol, Total Latest Range: <=199 mg/dL 131 HDL Latest Range: >=40 mg/dL 52 Chol/HDL Ratio No range found 2.5 LDL Chol Direct Latest Range: <=99 mg/dL 73 TSH Latest Range: 0.27-4.20 mcIU/mL 4.64 (H) U Creatinine No range found 104 U Ran Malb Calc No range found <3 U Ran Malb Conc No range found <3.0 Ventricular rate No range found 54 Atrial Rate No range found 54 P-R Interval No range found 202 QRS Duration No range found 112 Q-T Interval No range found 442 QTC Calculated (Bezet) No range found 419 Calculated P [place] No range found 48 Calculated R [place] No range found 72 Calculated T [place] No range found 57 Impression/ Plan Continues to be an outstanding candidate for a pancreas tx. That said he will have a substantial wait due tot he fact he is ranked 4th on the wait list currently and the average wait time exceeds 2 years (he has not had one year yet on the wait list). He will continue to maintain the excellent health he currently is exhibiting and notify us of any changes in his health. RTC [address] - 11/15/2012 10:21 AM EDT November 15, 2012 Reese Shukla [id number] TRANSPLANT NUTRITION Annual Wait List Review Reese Shukla was re-evaluated by nutrition services on November 15, 2012 as part of an annual follow up as he remains on the pancreas transplant wait list. Diabetic History: Type 1 since the age of 11; insulin pump and sensor Dialysis History: no renal involvement Food Record: Patient stopped drinking his 8L of diet Coke about a month ago; he is now drinking Vitamin Water Zero, which has Stevia as a sweetener. He is eating smaller meals more often due to his gastroparesis. Medications/Vit/Min/Herbals of note: fish oil, CaCO3 w/D, Glucosamine, Multivit supplement Anthropometrics: BMI:Estimated Body mass index is 31.47 kg/(m^2) as calculated from the following: Height as of this encounter: 6' 0(1.829 m). Weight as of this encounter: 232 lb(105.235 kg). IBW: 178# (81kg) +/-10% Recent Weight Change: 1# difference from last encounter with this screen writer on 01/29/2012 Nutritional Concerns: Appetite is good but is eating smaller meals more often due to symptoms of gastroparesis, which are exacerbated by large meals. He has regular exercise; very active. 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 Assessment/Plan: There are no nutritional contraindications noted to proceed with pancreas transplant surgery. Plan communicated to Maintenance Mechanic Elevators for Documentation in patient's transplant medical record. Remain available for questions/concerns. Divya Gomez RN - 11/15/2012 9:43 AM EDT Patient was seen by the transplant team today for transplant evaluation review, patient is active onthe pancreas transplant wait list. Patient is blood type O, PRA is 0% As of today, patient has 270 days on the [facility] wait list. Dialysis Information Unit:NA Access:NA Dry Weight:NA Dialysis Issues:NA Medical Issues Since Last Transplant Evaluation:no Status of Evaluation: CXR:today EKG:today Transplant Labs:today Stress Test:02/2012 Colonoscopy:8-9 years ago Pap:NA Mammo:NA Dental:one month ago Date of last tissue typin10/2012 Living Donors:NA Patient Teaching: NORA report reviewed SRTR data review Process of being called in for transplant Post transplant care including home care, home supplies needed, return visits to clinic, discharge meds Carrying pager Monthly PRA lab work Immunizations Follow Up Items:Request immunization, colonoscopy, eye exam records, He will have EKG, CXR and labs done today. Will need updated stress test next visit. documented in this encounter Plan of Treatment Not on filedocumented as of this encounter Procedures Procedure Name Priority Date/Time Associated Comments Diagnosis NUCLEATED RED BLOOD Routine 11/15/2012 11:09 Resu lts for this CELLS AM EDT procedure are i n the results section. QUANTIFERON-TB GOLD Routine 11/15/2012 11:09 DM (diabetes Resu lts for this AM EDT mellitus) procedure are i n the results section. HERPESVIRUS 6 ANTIBODY Routine 11/15/2012 11:09 DM (diabetes R esults for this AM EDT mellitus) procedure are i n the results section. DIFFERENTIAL, Routine 11/15/2012 11:09 Results fo r this AUTOMATED AM EDT procedure are i n the results section. HSV 1 AND 2 IGG Routine 11/15/2012 11:09 DM (diabetes Results for this ANTIBODIES AM EDT mellitus) procedure are i n the results section. HEPATITIS C ANTIBODY Routine 11/15/2012 11:09 DM (diabetes Res ults for this AM EDT mellitus) procedure are i n the results section. SETH-SPRINGER VIRUS Routine 11/15/2012 11:09 DM (diabetes Resul ts for this ANTIBODIES AM EDT mellitus) procedure are i n the results section. CMV ANTIBODY, IGM Routine 11/15/2012 11:09 DM (diabetes Result s for this AM EDT mellitus) procedure are i n the results section. TOXOPLASMA ANTIBODY, Routine 11/15/2012 11:09 DM (diabetes Res ults for this IGM AM EDT mellitus) procedure are i n the results section. SYPHILIS ANTIBODY Routine 11/15/2012 11:09 DM (diabetes Result s for this SCREEN WITH REFLEX AM EDT mellitus) procedure are in the results section. ABO/RH TYPING Routine 11/15/2012 11:09 DM (diabetes Results fo r this AM EDT mellitus) procedure are i n the results section. TOXOPLASMA ANTIBODY, Routine 11/15/2012 11:09 DM (diabetes Res ults for this IGG AM EDT mellitus) procedure are i n the results section. HIV SCREEN, 4TH Routine 11/15/2012 11:09 DM (diabetes Results for this GENERATION AM EDT mellitus) procedure are i n ([facility]/CGP/APD/NLH) the resul ts section. HEPATITIS B SURFACE Routine 11/15/2012 11:09 DM (diabetes Resu lts for this ANTIBODY AM EDT mellitus) procedure are i n the results section. HEPATITIS B SURFACE Routine 11/15/2012 11:09 DM (diabetes Resu lts for this ANTIGEN AM EDT mellitus) procedure are i n the results section. CMV ANTIBODY, IGG Routine 11/15/2012 11:09 DM (diabetes Result s for this AM EDT mellitus) procedure are i n the results section. APTT Routine 11/15/2012 11:09 DM (diabetes Results for this AM EDT mellitus) procedure are i n the results section. PROTHROMBIN TIME Routine 11/15/2012 11:09 DM (diabetes Results for this AM EDT mellitus) procedure are i n the results section. CBC (WITH DIFF) Routine 11/15/2012 11:09 DM (diabetes Results for this AM EDT mellitus) procedure are i n the results section. ANTIBODY SCREEN Routine 11/15/2012 11:09 DM (diabetes Results for this AM EDT mellitus) procedure are i n the results section. TYPE AND SCREEN Routine 11/15/2012 11:09 DM (diabetes ([facility]/CGP/[facility]) AM EDT mellitus) VARICELLA ZOSTER Routine 11/15/2012 11:09 DM (diabetes Results for this ANTIBODY, IGG AM EDT mellitus) procedure are in the results section. PHOSPHORUS Routine 11/15/2012 11:09 DM (diabetes Results for this AM EDT mellitus) procedure are i n the results section. MAGNESIUM Routine 11/15/2012 11:09 DM (diabetes Results for this AM EDT mellitus) procedure are i n the results section. COMPREHENSIVE Routine 11/15/2012 11:09 DM (diabetes Results fo r this METABOLIC PANEL AM EDT mellitus) procedure ar e in (NON-FASTING) the results section. URINALYSIS WITHOUT Routine 11/15/2012 11:03 DM (diabetes Resul ts for this MICROSCOPIC AM EDT mellitus) procedure are i n the results section. XR CHEST PA AND Routine 11/15/2012 10:45 DM (diabetes Results for this LATERAL AM EDT mellitus) procedure are i n the results section. documented in this encounter Results Differential, Automated (11/15/2012 11:09 AM EDT) P athologist Signature Neutrophils % 47.1 34.0 - CERNER 71.0 % MILLENNIUM Neutr Abs (ANC) 2.82 1.50 - CERNER 6.30 MILLENNIUM x10(3)/mcL Lymphocytes % 42.5 19.0 - CERNER 53.0 % MILLENNIUM Lymphocytes Abs 2.5 1.0 - 3.6 CERNER x10(3)/mcL MILLENNIUM Monocytes % 7.2 4.0 - 13.0 CERNER % MILLENNIUM Monocyte Abs 0.4 0.2 - 1.0 CERNER x10(3)/mcL MILLENNIUM Eosinophils % 2.2 0.0 - 7.0 CERNER % MILLENNIUM Eosinophils Abs 0.1 0.0 - 0.5 CERNER x10(3)/mcL MILLENNIUM Basophils % 0.8 0.0 - 2.0 CERNER % MILLENNIUM Basophils [...] Location / / Volume Laterality Blood specimen 11/15/2012 11:09 3 (specimen) AM EDT 11:52 AM EDT Eriberto Melgar MD HEMATOLOGY ORDERABLES Performing Organization Address City/State/[place] [address] CERNER MILLENNIUM Nucleated Red Blood Cells (11/15/2012 11:09 AM EDT) P athologist Signature nRBC % Auto 0.0 0.0 - 0.2 CERNER % MILLENNIUM nRBC Abs Auto 0.000 0.000 - CERNER 0.012 MILLENNIUM x10(3)/mcL Specimen Anatomical Collection Method Collection Time Receive d Time (Source) Location / / Volume Laterality Blood specimen 11/15/2012 11:09 3 (specimen) AM EDT 11:52 AM EDT Resulting Agency Comment Spec In Lab Eriberto Melgar MD HEMATOLOGY ORDERABLES Performing Organization Address City/[facility]/ZIP Code Phon e Number [address] CERNER MILLENNIUM Antibody screen (11/15/2012 11:09 AM EDT) Analysis Performed At [facility] logist Time Signature Ab Screen Negative CERNER Interp MILLENNIUM Expires at [id number] CERNER 9 on: MILLENNIUM Specimen Anatomical Collection Method Collection Time Receive d Time (Source) Location / / Volume Laterality Blood specimen 11/15/2012 11:09 3 (specimen) AM EDT 11:19 AM EDT Resulting Agency Comment Spec In Lab Eriberto Melgar MD BLOOD BANK ORDERABLES Performing Organization Address City/[facility]/ZIP Code Phon e Number [address] CERNER MILLENNIUM ABO/Rh Typing (11/15/2012 11:09 AM EDT) P athologist Signature ABORh Type O Pos CERNER MILLENNIUM Specimen Anatomical Collection Method Collection Time Receive d Time (Source) Location / / Volume Laterality Blood specimen 11/15/2012 11:09 3 (specimen) AM EDT 11:19 AM EDT Resulting Agency Comment Spec In Lab Eriberto Melgar MD BLOOD BANK ORDERABLES Performing Organization Address City/State/[place] [address] CERNER MILLENNIUM (ABNORMAL) HSV 1 and 2 IgG Antibodies (11/15/2012 11:09 AM EDT) athologist Signature HSV Type 1 Pos (A) Neg CERNER Antibody, IgG MILLENNIUM HSV Type 2 Neg Neg CERNER Antibody, IgG MILLENNIUM Specimen Anatomical Collection Method Collection Time Receive d Time (Source) Location / / Volume Laterality Blood specimen 11/15/2012 11:09 3 8:38 (specimen) AM EDT AM EDT Resulting Agency Comment Spec In Lab Eriberto Melgar MD IMMUNOLOGY ORDERABLES Performing Organization Address City/[facility]/ZIP Code Phon e Number [address] [facility] Magnesium (11/15/2012 11:09 AM EDT) athologist Signature Magnesium 0.84 0.69 - 1.07 CERNER mmol/L MILLBANNERIUM Specimen Anatomical Collection Method Collection Time Receive d Time (Source) Location / / Volume Laterality Blood specimen 11/15/2012 11:09 3 (specimen) AM EDT 11:27 AM EDT Resulting Agency Comment Spec In Lab Eriberto Melgar MD CHEMISTRY ORDERABLES Performing Organization Address City/[facility]/ZIP Code Phon e Number [address] [facility] Herpesvirus 6 Antibody Panel by IFA (11/15/2012 11:09 AM EDT) Analysis Performed At Patho logist Time Signature Herpes 6 IgG 1:160 (H) [facility] MILLENNIUM Comment: Test Performed by: [email or web address], [employer]. [address] [place] [address] Herpes 6 IgM <1:20 [facility] Comment: Test Performed by: [email or web address], [employer]. [address] [place] [address] Herpes 6 Ab Interp PAST INFECTION [facility] Comment: REFERENCE RANGE: ??IgG ??<1:10 ?IgM ??<1:20 Human Herpesvirus 6 (HHV-6) infects T-ly mphocytes, and has been identified as an etiologic agent of exanthema subitum. Rises in antibody tit ers to HHV-6 have been detected during infectio n with other viruses. In seroepidemiology studi es of the prevalence of exposure using serum scree sharath dilutions of 1:10, the detection of IgG antibody in a mid-life population approaches 100% . Due to this high prevalence of HHV-6 antibody, correlations of single IgG titers with s pecific diseases are of little clinical value. Evidence of acute infection or reactivat ion of HHV-6 is demonstrated by a significant r ise or seroconversion of IgG and IgM titers. This assay was developed and its perform ance characteristics have been determined by [email or web address]. It has not been cleared or approved by the U.S. Food and Drug Administration . The FDA has determined that such clearance or ap proval is not necessary. Performance characteristi cs refer to the analytical performance of the charles t. Test Performed by: [email or web address] [address] [place] [id number] Specimen Anatomical Collection Method Collection Time Receive d Time (Source) Location / / Volume Laterality Blood specimen 11/15/2012 11:09 3 1:12 (specimen) AM EDT PM EDT Resulting Agency Comment Spec In Lab Eriberto Melgar MD IMMUNOLOGY ORDERABLES Performing Organization Address City/State/ZIP Code Phon e Number [place] [phone] C-Note QuantiFERON-TB Gold (11/15/2012 11:09 AM EDT) [facility] Method Time Signature Quantiferon TB Negative Negative CERNER XDC Comment: Nil (IU/mL)= 0.07 TB Ag minus Nil (IU/mL)= 0.01 Mitogen minus Nil (IU/mL)= >10 M. tuberculosis (TB) infection NOT likel y ?A negative specimen should have a TB Ag minus Nil value less than 0.35 IU/mL OR a TB Ag minus Nil greater than or equal to 0.35 IU/mL and in addition the TB Ag minus Nil value must be less t mariee 25% of the Nil value. A negative specimen should have a Mitogen minus Nil value greater than or equal to 0.5 IU/mL. ?A negative QuantiFERON-TB Gold IT result does not preclude the possibility of M. tuberculosis infection or tuberculosis disease: false negative results can be due to sta ge of infection (e.g., specimen obtained prior to the development of bryson lular immune response), co-morbid conditions which affect immune function, or other individual immunological factors. ?The performance of the QuantiFERON -TB Gold IT test has not been extensively evaluated with specimens from the follow ing groups of individuals: ?1. Individuals who have impaired o r altered immune function such as those who have HIV infection or AIDS, those wh o have transplantation managed with immunosuppressive treatment or others wh o receive immunosuppressive drugs (e.g., corticosteroids, methotrexate, az athioprine, cancer chemotherapy), and those who have other clinical conditions : diabetes, silicosis, chronic renal failure, hematological disorders (e.g., leukemia and lymphomas), and other specific malignancies (e.g., carcinoma o f the head or neck and lung). ?2. Individuals younger than age 17 years. ?3. women. Note: Diagnosing or excluding tuberculosis dis ease, and assessing the probability of LTBI, require a combination of epidemiol ogical, historical, medical, and diagnostic findings that should be taken into account when interpreting QuantiFERON-TB Gold results. Reference ( http://www.cdc.gov/nchstp/tb/) Specimen Anatomical Collection Method Collection Time Receive d Time (Source) Location / / Volume Laterality Blood specimen 11/15/2012 11:09 3 8:18 (specimen) AM EDT AM EDT Resulting Agency Comment Spec In Lab Eriberto Melgar MD CHEMISTRY ORDERABLES Performing Organization Address City/State/[place] [address] CERNER MILLENNIUM Phosphorus (11/15/2012 11:09 AM EDT) P athologist Signature Phosphorus 3.6 2.5 - 4.5 CERNER mg/dL MILLENNIUM Specimen Anatomical Collection Method Collection Time Receive d Time (Source) Location / / Volume Laterality Blood specimen 11/15/2012 11:09 3 (specimen) AM EDT 11:27 AM EDT Resulting Agency Comment Spec In Lab Eriberto Melgar MD CHEMISTRY ORDERABLES Performing Organization Address City/[facility]/ZIP Code Phon e Number [address] CERNER MILLENNIUM APTT (11/15/2012 11:09 AM EDT) P athologist Signature PTT 34 25 - 35 sec CERNER MILLENNIUM Comment: Recommended therapeutic PTT range for fu ll dose unfractionated heparin is 80-114 seconds. Specimen Anatomical Collection Method Collection Time Receive d Time (Source) Location / / Volume Laterality Blood specimen 11/15/2012 11:09 3 (specimen) AM EDT 11:27 AM EDT Resulting Agency Comment Spec In Lab Eriberto Melgar MD HEMATOLOGY ORDERABLES Performing Organization Address [facility] Code Phon e Number [address] CERNER MILLENNIUM Prothrombin Time (11/15/2012 11:09 AM EDT) P athologist Signature PT 13.4 12.0 - 15.0 CERNER sec MILLENNIUM Comment: [facility] Transfusion Committee Guidelines: I NR less than 2.0, PTT less than OR equal to 43.5 seconds, or Fibrinogen gre ater than or equal to 100 mg/dl indicate adequate procoagulant activity for hemostasis in patients without underlying bleeding disorders. INR 1.0 0.9 - 1.1 [facility] Specimen Anatomical Collection Method Collection Time Receive d Time (Source) Location / / Volume Laterality Blood specimen 11/15/2012 11:09 3 (specimen) AM EDT 11:27 AM EDT Resulting Agency Comment Spec In Lab Eriberto Melgar MD HEMATOLOGY ORDERABLES Performing Organization Address City/[facility]/ZIP Code Phon e Number [address] CERNER MILLENNIUM Varicella zoster Antibody, IgG (11/15/2012 11:09 AM EDT) P athologist Signature Varicella IgG Pos CERNER MILLENNIUM Specimen Anatomical Collection Method Collection Time Receive d Time (Source) Location / / Volume Laterality Blood specimen 11/15/2012 11:09 3 8:38 (specimen) AM EDT AM EDT Resulting Agency Comment Spec In Lab Eriberto Melgar MD IMMUNOLOGY ORDERABLES Performing Organization Address City/[facility]/[place] [address] CERNER MILLENNIUM Toxoplasma Antibody, IgG (11/15/2012 11:09 AM EDT) P athologist Signature Toxoplasma IgG Neg Neg CERNER MILLENNIUM Specimen Anatomical Collection Method Collection Time Receive d Time (Source) Location / / Volume Laterality Blood specimen 11/15/2012 11:09 3 8:38 (specimen) AM EDT AM EDT Resulting Agency Comment Spec In Lab Eriberto Melgar MD IMMUNOLOGY ORDERABLES Performing Organization Address City/[facility]/[place] [address] CERNER MILLENNIUM Toxoplasma Antibody, IgM (11/15/2012 11:09 AM EDT) P athologist Signature Toxoplasma IgM Neg Neg CERNER MILLENNIUM Specimen Anatomical Collection Method Collection Time Receive d Time (Source) Location / / Volume Laterality Blood specimen 11/15/2012 11:09 3 8:38 (specimen) AM EDT AM EDT Resulting Agency Comment Spec In Lab Eriberto Melgar MD CHEMISTRY ORDERABLES Performing Organization Address City/[facility]/[place] [address] CERNER MILLENNIUM Syphilis Antibody, IgG (11/15/2012 11:09 AM EDT) P athologist Signature Syphilis IgG Neg Neg CERNER MILLENNIUM Specimen Anatomical Collection Method Collection Time Receive d Time (Source) Location / / Volume Laterality Blood specimen 11/15/2012 11:09 3 8:38 (specimen) AM EDT AM EDT Resulting Agency Comment Spec In Lab Eriberto Melgar MD IMMUNOLOGY ORDERABLES Performing Organization Address City/[facility]/[place] [address] CERNER MILLENNIUM HIV (11/15/2012 11:09 AM EDT) P athologist Signature HIV 1/2 Ab Negative [facility] Specimen Anatomical Collection Method Collection Time Receive d Time (Source) Location / / Volume Laterality Blood specimen 11/15/2012 11:09 3 (specimen) AM EDT 11:27 AM EDT Resulting Agency Comment Spec In Lab Eriberto Melgar MD IMMUNOLOGY ORDERABLES Performing Organization Address City/[facility]/ZIP Code Phon e Number [address] [facility] Hepatitis C Antibody (11/15/2012 11:09 AM EDT) Analysis Performed At [facility] Time Signature Hepatitis C Ab Negative Negative [facility] Specimen Anatomical Collection Method Collection Time Receive d Time (Source) Location / / Volume Laterality Blood specimen 11/15/2012 11:09 3 (specimen) AM EDT 11:27 AM EDT Resulting Agency Comment Spec In Lab Eriberto Melgar MD IMMUNOLOGY ORDERABLES Performing Organization Address City/[facility]/ZIP Code Phon e Number [address] [facility] Hepatitis B Surface Antibody (11/15/2012 11:09 AM EDT) Analysis Performed At [facility] HepB Surface Negative [facility] Comment: Expected Results: Vaccinated: Positive Unvaccinated: Negative Please note: A positive result for this assay is consistent with a concentration of anti-HBs antibodies >10 mIU/ml, which indicates that anti-HBs antibodies have been detected at levels consistent with protective immunity against HBV infection. Specimen Anatomical Collection Method Collection Time Receive d Time (Source) Location / / Volume Laterality Blood specimen 11/15/2012 11:09 3 (specimen) AM EDT 11:27 AM EDT Resulting Agency Comment Spec In Lab Eriberto Melgar MD IMMUNOLOGY ORDERABLES Performing Organization Address City/[facility]/ZIP Code Phon e Number [address] [facility] (ABNORMAL) Seth-Springer Virus Antibodies (11/15/2012 11:09 AM EDT) Patholo gist Method Time Signature EBV (VCA) IgG Pos (A) Neg CERNER Antibody MILLENNIUM EBV (VCA) IgM Neg Neg CERNER Antibody MILLENNIUM EBNA Antibodies Pos (A) Neg CERNER MILLENNIUM EBV Interpretation Results CERNER suggest MILLENNIUM past infection. Comment: In most populations, at least 90% of the adult population will have been infected with EBV some time in the past and therefore, will be positive for anti-VCA/IgG and anti-EBNA. Antibodies t o EBNA develop 6-8 weeks after primary infection and remain present for life. P resence of VCA/IgM antibodies indicates recent primary infection with EBV. Specimen Anatomical Collection Method Collection Time Receive d Time (Source) Location / / Volume Laterality Blood specimen 11/15/2012 11:09 3 8:38 (specimen) AM EDT AM EDT Resulting Agency Comment Spec In Lab Eriberto Melgar MD IMMUNOLOGY ORDERABLES Performing Organization Address City/[facility]/ZIP Code Phon e Number [address] [facility]atitis B Surface Antigen (11/15/2012 11:09 AM EDT) Analysis Performed At Patho logist Time Signature HepB Surface Negative Negative CERNER Ag MILLENNIUM Specimen Anatomical Collection Method Collection Time Receive d Time (Source) Location / / Volume Laterality Blood specimen 11/15/2012 11:09 3 (specimen) AM EDT 11:27 AM EDT Resulting Agency Comment Spec In Lab Eriberto Melgar MD CHEMISTRY ORDERABLES Performing Organization Address City/State/ZIP Code Phon e Number [address] CERNER MILLBANNERIUM CMV Antibody, IgM (11/15/2012 11:09 AM EDT) P athologist Signature CMV IgM Neg Neg CERNER MILLENNIUM Specimen Anatomical Collection Method Collection Time Receive d Time (Source) Location / / Volume Laterality Blood specimen 11/15/2012 11:09 3 8:38 (specimen) AM EDT AM EDT Resulting Agency Comment Spec In Lab Eriberto Melgar MD IMMUNOLOGY ORDERABLES Performing Organization Address City/[facility]/[place] [address] [facility] MILLBANNERIUM CMV Antibody, IgG (11/15/2012 11:09 AM EDT) athologist Signature CMV IgG Neg Neg [facility] Specimen Anatomical Collection Method Collection Time Receive d Time (Source) Location / / Volume Laterality Blood specimen 11/15/2012 11:09 3 8:38 (specimen) AM EDT AM EDT Resulting Agency Comment Spec In Lab Eriberto Melgar MD IMMUNOLOGY ORDERABLES Performing Organization Address City/[facility]/ZIP Code Phon e Number [address] [facility] MILLENNIUM (ABNORMAL) CBC (with Diff) (11/15/2012 11:09 AM EDT) athologist Signature WBC 6.0 4.0 - 10.0 CERNER x10(3)/mcL MILLENNIUM RBC 4.39 (L) 4.63 - CERNER 6.08 MILLENNIUM x10(6)/mcL Hemoglobin 13.4 (L) 13.7 - CERNER 17.5 gm/dL MILLENNIUM Hematocrit 39.6 (L) 40.0 - CERNER 51.0 % MILLENNIUM MCV 90.2 79.0 - CERNER 92.0 fL MILLENNIUM MCH 30.5 25.6 - CERNER 32.2 pg MILLENNIUM MCHC 33.8 32.0 - CERNER 36.5 gm/dL MILLENNIUM Platelets 258 145 - 370 CERNER x10(3)/mcL MILLENNIUM RDWSD 41.6 35.0 - CERNER 46.0 fL MILLENNIUM RDWCV 12.7 10.9 - CERNER 14.4 % MILLENNIUM MPV 11.3 9.0 - 12.0 CERNER fL MILLENNIUM Specimen Anatomical Collection Method Collection Time Receive d Time (Source) Location / / Volume Laterality Blood specimen 11/15/2012 11:09 3 (specimen) AM EDT 11:52 AM EDT Resulting Agency Comment Spec In Lab Eriberto Melgar MD HEMATOLOGY ORDERABLES Performing Organization Address City/State/ZIP [place] [address] CERNER MILLENNIUM Comprehensive metabolic panel (non-fasting) (11/15/2012 11:09 AM EDT) P athologist Signature Glucose Lvl 159 60 - 199 CERNER mg/dL MILLENNIUM Comment: Diabetes: >=200 mg/dL plus symp toms BUN 13 10 - 20 mg/dL CERNER MILLENNIU M Creatinine 0.85 0.80 - 1.50 mg/dL CERNER MILL ENNIUM Comment: Please note that the pediatric reference intervals supplied above were not validated at [facility]. Results from pediatri c patients should be interpreted in conjunction to the patient's age, height and muscle mass. Sodium 138 135 - 145 mmol/L CERNER LALA NIUM Potassium 3.7 3.5 - 5.0 mmol/L CERNER LALA NIUM [...] - 39 unit/L CERNER MILLENNIU M ALT 22 0 - 55 unit/L CERNER MILLENNIU M Alk Phos 86 40 - 120 unit/L CERNER MILLENN IUM Total Bilirubin 0.9 0.2 - 1.3 mg/dL CERNER M ILLENNIUM Bili, Direct 0.2 0.0 - 0.3 mg/dL CERNER MILL ENNIUM Estimated GFR >60 >=60 CERNER MILLENNIU M Comment: The National Kidney Disease Education Pr ogram (NKDEP) has recommended all laboratories report estimated GFR (eGFR) along with plasma creatinine measurements to assist you with recognit ion of early kidney disease. Caveats: ??Plasma creatinine should be a t steady-state (unchanged within the past week). For patient s multiply eGFR by 1.2. The MDRD equation was developed using patients be tween the ages of 18 and 70 years. ?? The MDRD equation has not been validated for patients < 18 years of age and should not be used to assess renal function in the pediatric population. ??The MDRD eGFR equation will also overestimate the true GFR of patients above the age of 70. ??This overestimation is variable bu t increases with age. At present, NKDEP does NOT recommend usi ng the MDRD equation for drug dosing purposes and pharmacists should continue to use their current dosing methods. In addition, numerical eGFR values great er than 60 ml/min/1.73 square meters should be treated as > 60, and not an ex act number due to greater inaccuracies at these higher values. Per NKDEP, they classify normal renal function as any GFR >60ml/min/1.73 square meters; chronic kidney disease wh en GFR <60, and renal failure when GFR <15. ??This calculation may not be valid for patients with atypical muscle mass (very lean or obese), acute renal failur e, and in patients with diabetic kidney disease. References: http://nkdep.nih.gov/resources/NKDEP_Sug gestn4Labs_0606_508.pdf http://www.kidney.org/professionals/kls/ pdf/faq_gfr.pdf Matthew K, Yunior NA, Azucena AK, Perfecto TS, Lynda AD, Afsaneh KERRY. Relative performance of the MDRD and CKD-EPI equa tions for estimating glomerular filtration rate among patients with vari ed clinical presentations. Clin J Am Soc Nephrol;6:1963-72. Specimen Anatomical Collection Method Collection Time Receive d Time (Source) Location / / Volume Laterality Blood specimen 11/15/2012 11:09 3 (specimen) AM EDT 11:27 AM EDT Resulting Agency Comment Spec In Lab Eriberto Melgar MD CHEMISTRY ORDERABLES Performing Organization Address City/State/[place] [address] CERNER MILLENNIUM Urinalysis without microscopic (11/15/2012 11:03 AM EDT) [facility] Method Time Signature Glucose UA Negative Negative CERNER mg/dL MILLENNIUM Protein UA Negative mg/dL CERNER MILLENNIUM Bilirubin UA Negative Negative CERNER mg/dL MILLENNIUM Urobilinogen UA Normal mg/dL CERNER MILLENNIUM pH UA 7.0 5.0 - 8.0 CERNER MILLENNIUM Blood UA Negative mg/dL CERNER MILLENNIUM Ketones UA Negative mg/dL CERNER MILLENNIUM Nitrite UA Negative CERNER MILLENNIUM Leukocytes UA Negative mcL CERNER MILLENNIUM Appearance UA Clear Clear CERNER MILLENNIUM Spec Mckenna UA 1.013 1.002 - CERNER 1.030 MILLENNIUM Color UA Yellow Yellow CERNER MILLENNIUM Specimen Anatomical Collection Method Collection Time Receive d Time (Source) Location / / Volume Laterality Urine specimen 11/15/2012 11:03 3 (specimen) AM EDT 11:10 AM EDT Resulting Agency Comment Spec In Lab Eriberto Melgar MD URINE ORDERABLES Performing Organization Address City/State/ZIP Code Phon e Number [address] CERNER MILLENNIUM XR chest routine PA & lateral (11/15/2012 10:45 AM EDT) Anatomical Region Laterality Modality Chest N/A Radiographic Imaging Specimen (Source) Anatomical Collection Method Collection Time Re ceived Time Location / / Volume Laterality 11/15/2012 10:45 AM EDT Narrative 11/15/2012 10:59 AM EDT Examination CHEST ROUTINE PA+LAT Clinical History pre pancreas transplant Comparison Is made the study of 01/29/2012. Technique Findings The cardiomediastinal silhouette is norm al. ??Lung greco are clear. Impression No cardiopulmonary disease process. Procedure Note Immanuel Oneill MD - 11/15/2012Formatt ing of this note might be different from the original. Examination CHEST ROUTINE PA+LAT Clinical History pre pancreas transplant Comparison Is made the study of 01/29/2012. Technique Findings The cardiomediastinal silhouette is norm al. Lung greco are clear. Impression No cardiopulmonary disease process. Eriberto Melgar MD IMG DX ORDERABLES documented in this encounter Visit Diagnoses Diagnosis DM (diabetes mellitus) - Primary Type II or unspecified type diabetes bria litus without mention of complication, not stated as uncontrolled Awaiting organ transplant status documented in this encounter Care Teams Social Problems Specialist Relationship Specialty Start Date End Date Anna Mullen MD PCP - General 12/03/10 [address] [place] [address] documented as of this encounter
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
--- OUTSIDE RECORDS SUMMARY | 2022-03-13 18:35 | XMS_ITS | Encounter Summary ---
:1965 Author Organization [facility] [place] [address] Care Team Providers Name Role Phone Anna Mullen MD Primary Care Provider Encounter Details Date Type Department Care Team Description 11/02/2012 Telephone Endocrinology at [facility] C Una Lassiter APRN [facility] [place] [address] ENDOCRINOLOGY DEPT. [phone] [place], [place] [address] (Wo rk) Social History Tobacco [...] Telephone Encounter - Una Lassiter APRN - 11/02/2012 1:02 PM EST EXTRACTION SUPERVISOR left message on pt's answering machine mobile # to call Dr Mullen's office for med for herpes outbreak documented in this encounter Plan of Treatment Not on filedocumented as of this encounter Visit Diagnoses Not on filedocumented in this encounter Care Teams Ssn/Ssbn Weapons Equipment Operator Relationship Specialty Start Date End Date Anna Mullen MD PCP - General 12/03/10 [address] [place] [address] documented as of this encounter
--- OUTSIDE RECORDS SUMMARY | 2022-03-13 18:35 | XMS_ITS | Encounter Summary ---
:1965 Author Organization [facility] [place] [address] Care Team Providers Name Role Phone Anna Mullen MD Primary Care Provider Encounter Details Date Type Department Care Team Description 05/19/2012 Follow-Up [place] [address] Social History Tobacco Use Types Packs/Day [...] on filedocumented in this encounter Care Teams Casting Plug Assembler Relationship Specialty Start Date End Date Anna Mullen MD PCP - General 12/03/10 [address] [place], [place] [address] documented as of this encounter
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
--- OUTSIDE RECORDS SUMMARY | 2022-03-13 18:35 | XMS_ITS | Encounter Summary ---
:1965 Author Organization [facility] [address] Care Team Providers Name Role Phone Anna Mullen MD Primary Care Provider Encounter Details Date Type Department Care Team Description 11/15/2012 Orders Only Solid Organ Divya Dia DM (diab etes mellitus) Transplant at [facility] Wendi RN (Primary Dx) [place] [address] Social History Tobacco Use Types [...] filedocumented as of this encounter Results (ABNORMAL) HSV 1 and 2 IgG Antibodies (11/15/2012 11:09 AM EDT) P athologist Signature HSV Type 1 Pos (A) [...] Organization Address City/State/ZIP Code Phon e Number [place] [phone] [facility] [address] CERNER MILLENNIUM Magnesium (11/15/2012 11:09 AM EDT) P athologist Signature Magnesium 0.84 0.69 - 1.07 CERNER mmol/L MILLENNIUM Specimen Anatomical Collection Method Collection Time Receive d Time (Source) Location / / Volume Laterality Blood specimen 11/15/2012 11:09 3 (specimen) AM EDT 11:27 AM EDT Resulting Agency Comment Spec In Lab Eriberto Melgar MD CHEMISTRY ORDERABLES Performing Organization Address City/[facility]/ZIP Code Phon e Number [address] CERNER MILLENNIUM (ABNORMAL) Herpesvirus 6 Antibody Panel by IFA (11/15/2012 11:09 AM EDT) Analysis Performed At Patho logist Time Signature Herpes 6 IgG 1:160 (H) CERNER MILLENNIUM Comment: Test Performed by: [employer]. [address] [place] [phone] Herpes 6 IgM <1:20 CERNER MILLENNIUM Comment: Test Performed by: [employer]. [address] [place] [phone] Herpes 6 Ab Interp PAST INFECTION CERNER MILLENNIUM Comment: REFERENCE RANGE: ??IgG ??<1:10 ?IgM ??<1:20 [...] perform ance characteristics have been determined by [employer]. It has not been cleared or approved by the U.S. Food and Drug Administration . The FDA has determined that such clearance or ap proval is not necessary. Performance characteristi cs refer to the analytical performance of the charles t. Test Performed by: [employer] [address] [place] [phone] Specimen Anatomical Collection Method Collection Time Receive d Time (Source) Location / / Volume Laterality Blood specimen 11/15/2012 11:09 3 1:12 (specimen) AM EDT PM EDT Resulting Agency Comment Spec In Lab Eriberto Melgar MD IMMUNOLOGY ORDERABLES Performing Organization Address City/State/ZIP Code Phon e Number [place] [phone] [address] [email or web address] QuantiFERON-TB Gold (11/15/2012 11:09 AM EDT) [facility] Method Time Signature Quantiferon TB Negative Negative CERNER MILLENNIUM Comment: Nil (IU/mL)= 0.07 TB Ag minus [...] Organization Address City/State/ZIP Code Phon e Number [address] CERNER MILLENNIUM Phosphorus (11/15/2012 11:09 AM EDT) P athologist Signature Phosphorus 3.6 2.5 - 4.5 CERNER mg/dL MILLENNIUM Specimen Anatomical Collection Method Collection Time Receive d Time (Source) Location / / Volume Laterality Blood specimen 11/15/2012 11:09 3 (specimen) AM EDT 11:27 AM EDT Resulting Agency Comment Spec In Lab Eriberto Melgar MD CHEMISTRY ORDERABLES Performing Organization Address City/[facility]/ZIP [facility] Phon e Number [address] CERNER MILLENNIUM APTT (11/15/2012 [...] Melgar MD HEMATOLOGY ORDERABLES Performing Organization Address City/[facility]/[place] [address] [facility] MILLENNIUM Prothrombin Time (11/15/2012 11:09 AM EDT) P athologist Signature PT 13.4 12.0 - 15.0 CERNER sec MILLENNIUM Comment: [facility] Transfusion Committee Guidelines: I NR less than 2.0, PTT less than OR equal to 43.5 seconds, or Fibrinogen gre ater than or equal to 100 mg/dl indicate adequate procoagulant activity for hemostasis in patients without underlying bleeding disorders. INR 1.0 0.9 - 1.1 [facility] Specimen Anatomical Collection Method Collection Time Receive d Time (Source) Location / / Volume Laterality Blood specimen 11/15/2012 11:09 3 (specimen) AM EDT 11:27 AM EDT Resulting Agency Comment Spec In Lab Eriberto Melgar MD HEMATOLOGY ORDERABLES Performing Organization Address City/[facility]/ZIP Code Phon e Number [address] [facility] MILLENNIUM Varicella zoster Antibody, IgG (11/15/2012 11:09 AM EDT) P athologist Signature Varicella IgG Pos [facility] Specimen Anatomical Collection Method Collection Time Receive d Time (Source) Location / / Volume Laterality Blood specimen 11/15/2012 11:09 3 8:38 (specimen) AM EDT AM EDT Resulting Agency Comment Spec In Lab Eriberto Melgar MD IMMUNOLOGY ORDERABLES Performing Organization Address City/[facility]/ZIP Code Phon e Number [address] [facility] Toxoplasma Antibody, IgG (11/15/2012 11:09 AM EDT) P athologist Signature Toxoplasma IgG Neg Neg [facility] Specimen Anatomical Collection Method Collection Time Receive d Time (Source) Location / / Volume Laterality Blood specimen 11/15/2012 11:09 3 8:38 (specimen) AM EDT AM EDT Resulting Agency Comment Spec In Lab Eriberto Melgar MD IMMUNOLOGY ORDERABLES Performing Organization Address City/[facility]/[place] [address] [facility] Toxoplasma Antibody, IgM (11/15/2012 11:09 AM EDT) P athologist Signature Toxoplasma IgM Neg Neg [facility] Specimen Anatomical Collection Method Collection Time Receive d Time (Source) Location / / Volume Laterality Blood specimen 11/15/2012 11:09 3 8:38 (specimen) AM EDT AM EDT Resulting Agency Comment Spec In Lab Eriberto Melgar MD CHEMISTRY ORDERABLES Performing Organization Address City/[facility]/ZIP Code Phon e Number [address] [facility] Syphilis Antibody, IgG (11/15/2012 11:09 AM EDT) P athologist Signature Syphilis IgG Neg Neg [facility] Specimen Anatomical Collection Method Collection Time Receive d Time (Source) Location / / Volume Laterality Blood specimen 11/15/2012 11:09 3 8:38 (specimen) AM EDT AM EDT Resulting Agency Comment Spec In Lab Eriberto Melgar MD IMMUNOLOGY ORDERABLES Performing Organization Address City/[facility]/[place] [address] [facility] HIV (11/15/2012 11:09 AM EDT) P athologist Signature HIV 1/2 Ab Negative [facility] Specimen Anatomical Collection Method Collection Time Receive d Time (Source) Location / / Volume Laterality Blood specimen 11/15/2012 11:09 3 (specimen) AM EDT 11:27 AM EDT Resulting Agency Comment Spec In Lab Eriberto Melgar MD IMMUNOLOGY ORDERABLES Performing Organization Address City/[facility]/[place] [address] CERNER MILLENNIUM Hepatitis C Antibody (11/15/2012 11:09 AM EDT) Analysis Performed At [facility] Signature Hepatitis C Ab Negative Negative CERNER MILLENNIUM Specimen Anatomical Collection Method Collection Time Receive d Time (Source) Location / / Volume Laterality Blood specimen 11/15/2012 11:09 201 3 (specimen) AM EDT 11:27 AM EDT Resulting Agency Comment Spec In Lab Eriberto Melgar MD IMMUNOLOGY ORDERABLES Performing Organization Address City/[facility] Phon e Number [address] CERNER MILLENNIUM Hepatitis B Surface Antibody (11/15/2012 11:09 AM EDT) Analysis Performed At [facility] Signature HepB Surface Negative CERNER Ab MILLENNIUM Comment: Expected Results: Vaccinated: Positive Unvaccinated: Negative [...] Melgar MD IMMUNOLOGY ORDERABLES Performing Organization Address City/[facility] Phon e Number [address] CERNER MILLENNIUM (ABNORMAL) Seth-Myers Virus Antibodies (11/15/2012 11:09 AM EDT) [facility] Time Signature EBV (VCA) IgG Pos (A) [...] Melgar MD IMMUNOLOGY ORDERABLES Performing Organization Address City/[facility]/[place] [address] CERNER MILLENNIUM Hepatitis B Surface Antigen (11/15/2012 11:09 AM EDT) Analysis Performed At Patho logist Time Signature HepB Surface Negative Negative CERNER Ag MILLENNIUM Specimen Anatomical Collection Method Collection Time Receive d Time (Source) Location / / Volume Laterality Blood specimen 11/15/2012 11:09 3 (specimen) AM EDT 11:27 AM EDT Resulting Agency Comment Spec In Lab Eriberto Melgar MD CHEMISTRY ORDERABLES Performing Organization Address City/[facility]/[place] [address] CERNER MILLENNIUM CMV Antibody, IgM (11/15/2012 11:09 AM EDT) P athologist Signature CMV IgM Neg Neg CERNER MILLENNIUM Specimen Anatomical Collection Method Collection Time Receive d Time (Source) Location / / Volume Laterality Blood specimen 11/15/2012 11:09 3 8:38 (specimen) AM EDT AM EDT Resulting Agency Comment Spec In Lab Eriberto Melgar MD IMMUNOLOGY ORDERABLES Performing Organization Address City/[facility]/ZIP [facility] [address] CERNER MILLENNIUM CMV Antibody, IgG (11/15/2012 11:09 AM EDT) P athologist Signature CMV IgG Neg Neg CERNER MILLENNIUM Specimen Anatomical Collection Method Collection Time Receive d Time (Source) Location / / Volume Laterality Blood specimen 11/15/2012 11:09 3 8:38 (specimen) AM EDT AM EDT Resulting Agency Comment Spec In Lab Eriberto Melgar MD IMMUNOLOGY ORDERABLES Performing Organization Address City/[facility]/[place] [address] CERNER MILLENNIUM (ABNORMAL) CBC (with Diff) (11/15/2012 11:09 [...] Organization Address City/State/ZIP Code Phon e Number [place] [phone] CERNER MILLENNIUM Comprehensive metabolic panel (non-fasting) (11/15/2012 11:09 AM EDT) athologist Signature Glucose Lvl 159 60 - 199 CERNER mg/dL MILLENNIUM Comment: Diabetes: >=200 mg/dL plus symp toms BUN 13 10 - 20 mg/dL CERNER MILLENNIU M Creatinine 0.85 0.80 - 1.50 mg/dL CERNER MILL ENNIUM Comment: Please note that the pediatric reference intervals supplied above were not validated at [facility]. Results from pediatri c patients should be [...] Organization Address City/State/ZIP [place] [address] CERNER MILLENNIUM Urinalysis without microscopic (11/15/2012 11:03 AM EDT) [facility] Method Time Signature [...] Appearance UA Clear Clear CERNER MILLENNIUM Spec [place] UA 1.013 1.002 - CERNER 1.030 MILLENNIUM Color UA Yellow Yellow CERNER MILLENNIUM Specimen Anatomical Collection Method Collection Time Receive d Time (Source) Location / / Volume Laterality Urine specimen 11/15/2012 11:03 3 (specimen) AM EDT 11:10 AM EDT Resulting Agency Comment Spec In Lab Eriberto Melgar MD URINE ORDERABLES Performing Organization Address City/State/ZIP [place] [address] [facility] documented in this encounter Visit Diagnoses Diagnosis DM (diabetes mellitus) - Primary Type II or unspecified type diabetes bria litus without mention of complication, not stated as uncontrolled documented in this encounter Care Teams Castables Worker Relationship Specialty Start Date End Date Anna Mullen MD PCP - General 12/03/10 [address] [place] [address] documented as of this encounter
--- OUTSIDE RECORDS SUMMARY | 2022-03-13 18:35 | XMS_ITS | Encounter Summary ---
:1965 Author Organization [facility] [place] [address] Care Team Providers Name Role Phone Anna Mullen MD Primary Care Provider Encounter Details Date Type Department Care Team Description 09/27/2012 Orders Only Endocrinology at [facility] Una Dexter HEARING AID TECHNICIAN [facility] D [facility] [place] [address] ENDOCRINOLOGY DEPT. [phone] [place], [place] [address] (Wo rk) Social History Tobacco [...] on filedocumented in this encounter Care Teams Predictive Maintenance Technician Relationship Specialty Start Date End Date Anna Mullen MD PCP - General 12/03/10 [address] [place], [place] [address] documented as of this encounter
--- OUTSIDE RECORDS SUMMARY | 2022-03-13 18:35 | XMS_ITS | Encounter Summary ---
:1965 Author Organization [facility] [place] [address] Care Team Providers Name Role Phone Anna Mullen MD Primary Care Provider Reason for Visit Reason Onset Date Comments Other 05/17/2012 Unable to fill test strips script. - denied by insurance Encounter Details Date Type Department Care Team Description 05/17/2012 Telephone Endocrinology at [facility] Una Dexter, Other (Unable to fill One [facility] Unique pham APRN [place]. [place] [address] [address] [facility] denied by insurance) [phone] DR ENDOCRINOLOGY DEPT. [place], [place] [address] Social History Tobacco Use Types Packs/Day Years Used Date Never Smoker Smokeless Tobacco: Never Used Alcohol Use Standard Drinks/Week Comments No 0 (1 standard drink = 0.6 oz pure alcoho l) history of abuse, stopped 1996 Sex Assigned at Date Recorded Male 05/29/2021 11:28 PM EDT documented as of this encounter Miscellaneous Notes Telephone Encounter - Pamela Ellis RN - 05/17/2012 10:30 AM EDT Request received from pt through My - Insurance will not cover test strips because of frequency of testing. Script written on 05/11/12 by Una Lassiter APRN. Script exceeds the amount allowed by the insurance. Pt requesting that insurance be notified of reasons for testing 12 times per day. Script listedUnawareness of hypoglycemic events and gastroparesis. Pharmacy called and information obtained for contacting the insurance for an override of quantity dispensed. documented in this encounter Plan of Treatment Not on filedocumented as of this encounter Visit Diagnoses Not on filedocumented in this encounter Care Teams Perennial House Manager Relationship Specialty Start Date End Date Anna Mullen MD PCP - General 12/03/10 [address] [place] [address] documented as of this encounter
--- OUTSIDE RECORDS SUMMARY | 2022-03-13 18:35 | XMS_ITS | Encounter Summary ---
:1965 Author Organization [place] [address] Care Team Providers Name Role Phone Anna Mullen MD Primary Care Provider Reason for Referral Surgical (Routine) - Closed Specialty Diagnoses / Procedures Referred By Contact Refer red To Contact Orthopaedics Diagnoses Lumbar pain Geoffrey Martinez MD Sengupta, Dilip K, MD [facility] [place]OLOGY [place] [address] Fax: Referral ID Status Reason Start Date Expiration Date Visits V isits Requested Authorized [id number] Closed Consult, 12/22/2012 06/20/2013 1 1 Test & Treat Encounter Details Date Type Department Care Team Description 12/22/2012 Follow-Up Neurology at [facility] Geoffrey Martinez Lumbar pain (Primary [facility] MD Brigitte Dx) [place] [address] NEUROLOGY DEPT. [place], [place] [address] (Wo rk) Social History Tobacco [...] Sign Reading Time Taken Comments Blood Pressure 154/81 12/22/2012 11:14 AM EDT Pulse 56 12/22/2012 11:14 AM EDT Temperature - - Respiratory Rate - - Oxygen Saturation - - Inhaled Oxygen Concentration - - Weight 102.1 kg (225 lb) 12/22/2012 11:14 AM EDT Height 182.9 cm (6') 12/22/2012 11:14 AM EDT Body Mass Index 30.52 12/22/2012 11:14 AM EDT documented in this encounter Progress Notes Geoffrey Martinez MD - 12/22/2012 11:41 AM EDT Cerebrovascular Disease and Stroke Program Department of Neurology [place] [id number] t: [phone] / f: [phone] Date of Appointment: 12/22/2012 Patient: Richard Hsu : 1965 Patient ID: This 47 y.o. 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 There is no report of symptoms suggestive of recurrent TIA/Stroke. Medications are being taken as prescribed and without adverse symptoms. Occas migraines only. R leg bothering him below knee, tingling and hurts to walk on it. Also bothers him while at rest. Previously had LE DVT study that was normal. Has been bothering him for > 1 year and [facility]. Leans to L while seated to relieve pain and pain increases if leans to R. Weight bearing increases pain also. Gets worse and then leg feels weak and numb after walkinga while. 2 Naproxen bid and Tramdol. Patient Active Problem List Diagnoses Code ??? LBP radiating to right leg 724.2 ??? Diabetes mellitus 250.00 ??? Stroke-like symptoms 781.99 ??? Hypertension 401.9 ??? Edema 782.3 ??? Gastroparesis due to DM 250.60 ??? Migraine 346.90 Allergies Allergen Reactions ??? Nexium (Esomeprazole Magnesium) Diarrhea Any acid reflux medication causes severe diarrhea ??? Prilosec (Omeprazole Magnesium) Diarrhea ??? Reglan (Metoclopramide Hcl) TD ??? Simvastatin Outpatient Prescriptions Marked as Taking for the 12/22/12 encounter (Follow-Up) with Geoffrey Martinez MD Medication Sig Dispense Refill ??? promethazine (PHENERGAN) [...] mg tablet Take 400 mg by mouth 2 times daily. ??? trimethobenzamide (TIGAN) 300 mg [...] mouth 2 times daily (with meals). ??? levothyroxine (SYNTHROID) 175 mcg tablet Take 1 tablet by mouth daily. 90 tablet 4 ??? losartan (COZAAR) 100 mg tablet Take 100 mg by mouth daily. ??? pravastatin (PRAVACHOL) 40 mg tablet Take 40 mg by mouth daily. ??? traMADol (ULTRAM) 50 mg tablet Take 100 mg by mouth 2 times daily. ??? [place]rae [place]-3 Fatty Acids-Vitamin E (FISH OIL) 1,000 mg Cap Take 5,000 mg by mouth daily. ??? Acetone, Urine, Test (ACETONE, URINE, TEST) Strp by [facility] [place] [facility].(Non-Drug; Combo Route) route. ??? hydrOXYzine (VISTARIL) 25 [...] mg by mouth daily. Exam: Filed Vitals: 12/22/12 1114 BP: 154/81 Pulse: 56 Well appearing patient, nontoxic. Heart regular. No edema lower extremities. No wheezing or dyspnea noted. No rash, thyromegaly. Mood euthymic. Alert, oriented; attentive; speech fluent/articulate, paraphasic errors or martin aphasia. No facial weakness. No pronator drift or tremor. Gait antalgic, obviously uncomfortable when getting off exam table and bearing weight on R LE. SLR + R with immediate uncomfortable sensation below knee but not proximally. DTRs brisk knees and ankles. Full power in R quads, hams, AT,gastroc., ankle evertors and inverters, toe extensors. Sensation LT present throughout right LE Data reviewed: LFTs August normal. Prior MRI LS spine 12/2010 Clinical impression and recommendations: Doing well from a cerebral standpoint but right LE discomfort is his major problem now. I presume this is related to a lumbar radiculopathy ? L5 Given duration of symptoms, will obtain an MRI and refer back to the Spine Center. documented in this encounter Plan of Treatment Scheduled Referrals Name Type Priority Associated Diagnoses Order S chedule Referral to Spine Outpatient Referral Routine Lumbar pain Ord ered: Center 12/22/2012 documented as of this encounter Results MRI lumbar spine without contrast (12/23/2012 8:09 AM EDT) Anatomical Region Laterality Modality L-spine Magnetic Resonance Specimen (Source) Anatomical Collection Method Collection Time Re ceived Time Location / / Volume Laterality 12/23/2012 8:09 AM EDT Narrative 12/23/2012 5:29 PM EDT Examination MR Lumbar Spine WO Clinical History worsening right leg pain prior large lum bar Herniated Nucleus Pulposus Comparison 01/02/2011 Technique MRI of the lumbosacral spine is performe d without intravenous contrast. ?? Findings Dextroscoliosis is noted. Multilevel deg enerative changes are seen. The conus is normal and terminates at T12-L1. Visu alized retroperitoneum is unremarkable ?? Specific details are as follows: ?? T12-L1: No central canal stenosis or carroll ral foraminal narrowing is seen. ?? L1-L2 : A left paracentral disc protrusi on causes mild indentation of the thecal sac on the left and mild central canal narrowing. Mild bilateral facet arthropathy seen with mild bilateral for aminal stenosis worse on the left compared to the right. ?? L2-L3: Disc bulge with left foraminal di sc protrusion without central canal stenosis, facet arthropathy with mild le ft foraminal stenosis is seen. ?? L3- L4: No central canal stenosis, facet arthropathy with very mild bilateral foraminal stenosis ?? L4-L5: A right paracentral disc extrusio n with caudal migration causes severe central canal stenosis unchanged from th e prior examination. Facet arthropathy causes [id number] ??bilateral fora ella stenosis ?? L5-S1: A disc bulge with right foraminal protrusion is seen, no central canal stenosis, bilateral facet arthropathy ca use mild left and ??severe right foraminal stenosis ?? Impression Multilevel degenerative changes details as above, worst at the level of L4- L5 with no significant interval change. Film and interpretation reviewed by the attending Procedure Note Terrence Dykes MD - 12/23/2012Format ting of this note might be different from the original. Examination MR Lumbar Spine WO Clinical History worsening right leg pain prior large lum bar Herniated Nucleus Pulposus Comparison 01/02/2011 Technique MRI of the lumbosacral spine is performe d without intravenous contrast. Findings Dextroscoliosis is noted. Multilevel deg enerative changes are seen. The conus is normal and terminates at T12-L1. Visu alized retroperitoneum is unremarkable Specific details are as follows: T12-L1: No central canal stenosis or carroll ral foraminal narrowing is seen. L1-L2 : A left paracentral disc protrusi on causes mild indentation of the thecal sac on the left and mild central canal narrowing. Mild bilateral facet arthropathy seen with mild bilateral for aminal stenosis worse on the left compared to the right. L2-L3: Disc bulge with left foraminal di sc protrusion without central canal stenosis, facet arthropathy with mild le ft foraminal stenosis is seen. L3- L4: No central canal stenosis, facet arthropathy with very mild bilateral foraminal stenosis L4-L5: A right paracentral disc extrusio n with caudal migration causes severe central canal stenosis unchanged from th e prior examination. Facet arthropathy causes [id number] bilateral forami nal stenosis L5-S1: A disc bulge with right foraminal protrusion is seen, no central canal stenosis, bilateral facet arthropathy ca use mild left and severe right foraminal stenosis Impression Multilevel degenerative changes details as above, worst at the level of L4- L5 with no significant interval change. Film and interpretation reviewed by the attending Geoffrey Martinez MD IMG MRI ORDERABLES documented in this encounter Visit Diagnoses Diagnosis Lumbar pain - Primary Lumbago Lumbar pain Lumbago documented in this encounter Care Teams General Pediatrician Relationship Specialty Start Date End Date Anna Mullen MD PCP - General 12/03/10 [address] [place] [address] documented as of this encounter
--- OUTSIDE RECORDS SUMMARY | 2022-03-13 18:35 | XMS_ITS | Encounter Summary ---
:1965 Author Organization [facility] [place] [address] Care Team Providers Name Role Phone Anna Mullen MD Primary Care Provider Encounter Details Date Type Department Care Team Description 11/15/2012 Hospital Encounter Non-Invasive Pre-trans plant Cardiology Lab Tiffani diez for CKD [facility] ([facility] disease) [place] [address] Social History Tobacco Use Types Packs/Day [...] V42.83 Diabetic Supplies, Fax form to [facility] 100 each 09/02/2013 0 [facility]. [facility] medical for testing 4 supplies 10 times [...] 70 tablet 6 1 mg tablet 20mg [id number]; 3 Then 15mg x7days; Then 10mg x7days; [...] 2012 40 mg tablet mouth daily. 4 pantoprazole (PROTONIX) Take 1 tablet [...] 0 mg CR tablet times daily. 4 amlodipine (NORVASC) 5 mg Take 5 mg by mouth 0 tablet daily. 3 carvedilol (COREG) 3.125 Take by mouth 2 0 mg tablet times daily (with 4 meals). levothyroxine (SYNTHROID) Take 1 tablet by 90 tablet 4 10/01 175 mcg tablet mouth daily. 3 losartan (COZAAR) 100 mg Take by mouth daily. 0 tablet 3 pravastatin (PRAVACHOL) Take 40 mg by mouth 0 40 mg tablet daily. 4 traMADol (ULTRAM) 50 mg Take 100 mg by mouth 0 tablet 2 times daily. 4 [place]-3 Fatty Take 5,000 mg by 0 01/08/201109/06 Acids-Vitamin E (FISH mouth daily. 4 OIL) 1,000 mg Cap Acetone, Urine, Test by [facility].(Non-Drug; 0 (ACETONE, URINE, TEST) Combo Route) route. [...] Associated Diagnosis Comme nts EKG 12-LEAD Routine 11/15/2012 8:37 AM Pre-transplant Results for this EDT evaluation for CKD procedure are in the (chronic kidney results sect ion. disease) documented in this encounter Results EKG 12 Lead (11/15/2012 8:37 AM EDT) Component Value Ref Range Test Analysis Performed Pathologis t Method Time At Signature Ventricular rate 54 BPM MUSE SYSTEM Atrial Rate 54 BPM MUSE SYSTEM P-R Interval 202 ms MUSE SYSTEM QRS Duration 112 ms MUSE SYSTEM Q-T Interval 442 ms MUSE SYSTEM QTC Calculated 419 ms MUSE SYSTEM (Bezet) Calculated P [place]ck[place] 48 degrees MUSE SYSTEM Calculated R [place] 72 degrees MUSE SYSTEM Calculated T [place] 57 degrees MUSE SYSTEM INTERPRETATION Sinus bradycardia MUSE SY STEM Otherwise normal ECG When compared with ECG of 11-JUN-2009 10:57, No significant change was found I personally reviewed the tracing and edited the fellows int erpretation Confirmed by fellow Benny MORENO, eMagan ([id number]) on 3 8:58:12 AM Confirmed by MD QI, YONATAN ([id number]) on 11/15/2012 1:46:10 PM Specimen Anatomical Collection Method Collection Time Receive d Time (Source) Location / / Volume Laterality 11/15/2012 8:37 AM 3 1:46 EDT PM EDT Eriberto Melgar MD ECG ORDERABLES Performing Organization Address City/State/ZIP Code Phon e Number MUSE SYSTEM documented in this encounter Visit Diagnoses Diagnosis Pre-transplant evaluation for CKD (chron ic kidney disease) Other specified pre-operative examinatio n documented in this encounter Care Teams Joinery Factory Worker Relationship Specialty Start Date End Date Anna Mullen MD PCP - General 12/03/10 [address] [place] [address] documented as of this encounter
--- OUTSIDE RECORDS SUMMARY | 2022-03-13 18:35 | XMS_ITS | Encounter Summary ---
:1965 Author Organization [facility] [place] [address] Care Team Providers Name Role Phone Anna Mullen MD Primary Care Provider Encounter Details Date Type Department Care Team Description 09/27/2012 Office Visit Vascular Surgery at [facility] of right lower leg; [facility] RV[facility] Pain, [place] [address] Social History Tobacco Use Types Packs/Day [...] Name Priority Date/Time Associated Diagnosis Comme nts DUPLEX FOR DVT, Routine 09/27/2012 1:22 PM Pain, lower leg Res ults for this LEG, UNILAT EST procedure are i n the results section. documented in this encounter Results Duplex for DVT, Leg, Unilat (09/27/2012 1:22 PM EST) Component Value Ref Test Analysis Performed At [facility] Range Method Time Signature VB Text VASCUBASE Report Department: Vascular Surgery Lab Patient: [id number] (REESE HSU) CPT Code: 28749 ICD-9: 729.5 Referring Physician: MARVA ZAVALA Indication: right leg pain ICD9 Diagnosis Code: 729.5 RIGHT: Patent common femoral vein and popliteal vein with sp ontaneous, respirophasic Doppler wavefo cheri that respond normally to augmentation maneuvers. The common femoral vein, sap henofemoral junction, femoral vein through the thigh and the popliteal vein are fully compressible. Patent forms analyst ior tibial and peroneal veins with no [...] in this encounter Visit Diagnoses Diagnosis Pain of right lower leg Pain in limb Pain, lower leg Pain in limb documented in this encounter Care Teams Manager Provider Relations Relationship Specialty Start Date End Date Anna Mullen MD PCP - General 12/03/10 [address] [place] [address] documented as of this encounter
--- OUTSIDE RECORDS SUMMARY | 2022-03-13 18:35 | XMS_ITS | Encounter Summary ---
:1965 Author Organization [facility] [place] [address] Care Team Providers Name Role Phone Anna Mullen MD Primary Care Provider Encounter Details Date Type Department Care Team Description 12/23/2012 Abstract Spine Center at [facility] Mirtha Chaney, VOCATIONAL REHABILITATION [place] [address] Social History Tobacco Use Types Packs/Day [...] on filedocumented in this encounter Care Teams Field Artillery Crewmember Relationship Specialty Start Date End Date Anna Mullen MD PCP - General 12/03/10 [address] [place], [place] [address] documented as of this encounter
--- OUTSIDE RECORDS SUMMARY | 2022-03-13 18:35 | XMS_ITS | Encounter Summary ---
:1965 Author Organization [facility] [place] [address] Care Team Providers Name Role Phone Anna Mullen MD Primary Care Provider Encounter Details Date Type Department Care Team Description 11/16/2012 Abstract Solid Organ Transplant at [place], Sonja Adame, [place] [address] Social History Tobacco Use Types Packs/Day [...] on filedocumented in this encounter Care Teams Modeling Teacher Relationship Specialty Start Date End Date Anna Mullen MD PCP - General 12/03/10 [address] [place] [address] documented as of this encounter
--- OUTSIDE RECORDS SUMMARY | 2022-03-13 18:35 | XMS_ITS | Encounter Summary ---
:1965 Author Organization [facility] [place] [address] Care Team Providers Name Role Phone Anna Mullen MD Primary Care Provider Encounter Details Date Type Department Care Team Description 11/15/2012 Hospital Encounter XRay at [address] [place] [address] Social History Tobacco Use Types Packs/Day [...] Dx V42.83 Diabetic Supplies, Fax form to [facility] 100 each 12 09/02/2013 [facility] for testing 4 supplies 10 times [...] 70 tablet 6 1 mg tablet 20mg [id number]; 3 Then 15mg x7days; Then 10mg x7days; [...] mouth 0 tablet 2 times daily. 4 [place]-3 Fatty Take 5,000 mg by 0 01/08/201109/06 Acids-Vitamin E (FISH mouth daily. 4 OIL) 1,000 mg Cap Acetone, Urine, Test by [facility]Non-Drug; 0 (ACETONE, URINE, TEST) Combo Route) route. [...] on filedocumented in this encounter Care Teams Suspension Cord Tier Relationship Specialty Start Date End Date Anna Mullen MD PCP - General 12/03/10 [address] [place] [address] documented as of this encounter
--- OUTSIDE RECORDS SUMMARY | 2022-03-13 18:35 | XMS_ITS | Encounter Summary ---
:1965 Author Organization [facility] [place] [address] Care Team Providers Name Role Phone Anna Mullen MD Primary Care Provider Encounter Details Date Type Department Care Team Description 12/23/2012 Hospital Encounter MRI at [facility], [facility] Lumbar pain [facility] Geoffrey Martinez MD [facility] DR NEUROLOGY DEPT. [place] [id number] [place] [address] Social History Tobacco Use Types Packs/Day [...] to [facility] 100 each 12 09/02/2013 0 [facility]. [facility] for testing 4 supplies 10 times [...] 70 tablet 6 1 mg tablet 20mg [id number]; 3 Then 15mg x7days; Then 10mg x7days; [...] 2012 40 mg tablet mouth daily. 4 promethazine (PHENERGAN) Place [...] human Inject 1 mL as 2 each 05/11/201209/02 recombinant, 1 mg directed as needed. [...] mouth 0 tablet 2 times daily. 4 [place]-3 Fatty Take 5,000 mg by 0 01/08/201109/06 Acids-Vitamin E (FISH mouth daily. 4 OIL) 1,000 mg Cap Acetone, Urine, Test by [facility]Non-Drug; 0 (ACETONE, URINE, TEST) Combo Route) route. [...] daily. 4 documented as of this encounter Miscellaneous Notes Miscellaneous - Provider, Scanning - 12/28/2012 9:41 AM EDT documented in this encounter Plan of Treatment Not on filedocumented as of this encounter Procedures Procedure Name Priority Date/Time Associated Diagnosis Comme nts MRI LUMBAR SPINE Routine 12/23/2012 8:09 AM Lumbar pain Resul ts for this WITHOUT CONTRAST EDT procedure a re in the results section. [...] th e prior examination. Facet arthropathy causes [id number] ??bilateral fora ella stenosis ?? L5-S1: A [...] th e prior examination. Facet arthropathy causes [id number] bilateral forami nal stenosis L5-S1: A disc [...] this encounter Visit Diagnoses Diagnosis Lumbar pain Lumbago documented in this encounter Care Teams [place] Supervisor Relationship Specialty Start Date End Date Anna Mullen MD PCP - General 12/03/10 [address] [place] [address] documented as of this encounter
--- OUTSIDE RECORDS SUMMARY | 2022-03-13 18:35 | XMS_ITS | Encounter Summary ---
:1965 Author Organization [facility] [place] [address] Care Team Providers Name Role Phone Anna Mullen MD Primary Care Provider Reason for Visit Reason Comments Diabetes Encounter Details Date Type Department Care Team Description 05/11/2012 Office Visit Endocrinology at [facility] Una Dexter Diabetes mellitus type [facility], SEATING CAPTAIN 1 with complications [facility] (Primary Dx) [place] [address] CENTER [phone] [place] [address] Social History Tobacco Use Types Packs/Day Years Used Date Never Smoker Smokeless Tobacco: Never Used Alcohol Use Standard Drinks/Week Comments No 0 (1 standard drink = 0.6 oz pure alcoho l) history of abuse, stopped 1996 Sex Assigned at Date Recorded Male 05/29/2021 11:28 PM EDT documented as of this encounter Last Filed Vital Signs Vital Sign Reading Time Taken Comments Blood Pressure 117/58 05/11/2012 8:22 AM EDT Pulse 62 05/11/2012 8:22 AM EDT Temperature - - Respiratory Rate - - Oxygen Saturation - - Inhaled Oxygen Concentration - - Weight 104.8 kg (231 lb) 05/11/2012 8:22 AM EDT Height 182.9 cm (6') 05/11/2012 8:22 AM EDT Body Mass Index 31.33 05/11/2012 8:22 AM EDT documented in this encounter Patient Instructions Patient InstructionsUna Lassiter APRN - 05/11/2012 9:03 AM EDT Consider Ruth for shoe fitting, across the street from [place] Consider Dexcom sensor study to see if you find it more accurate. Given schedule Consider Dr Vu appointment for management of gastroparesis documented in this encounter Progress Notes Una Lassiter APRN - 05/11/2012 3:42 PM EDT DATE OF VISIT: 05/11/2012. REASON FOR VISIT: Follow up type 1 DM, with complications of hypoglycemia unawareness and gastroparesis. BRIEF HISTORY: Presents with . She discusses that she has had to call EMS four times since previous office visit. All low glucose levels happen after midnight. She wonders since she is an RN, if she could have the supplies available to give him glucose IV. She sts she uses two glucagon before the patient is able to swallow safely. DATE OF DIAGNOSIS OF DIABETES: 1974. SBGM, 10 to 12 times a day. The patient states it took a long time for his insurance to approve the MiniMed sensor, but he felt that it was very inaccurate in his Situation, most likely related to the gastroparesis. DIABETES REGIMEN: MiniMed 723 insulin pump, uses NovoLog. Basal rates 12 a.m. 1.3, 2 a.m. 1.25, 6 a.m. 1.9, 11 a.m. 1.8, 7 p.m. 1.6, 9 p.m. 1.75, and 11 p.m. 1.5. Total basal 39.9. Total daily doses range from 47 to 91.55. He states the high total daily doses are usually on the days when he has severe hypoglycemia and he discusses how much food it takes to get glucose levels to stay above 80 consistently. 24-HOUR MEAL PLAN: Varies quite a bit. Recently, he has been having a burrito at [employer]. Lunch is a sandwich. Dinner was pasta, cheese, and vegetables. Evening snack is usually crackers. Sometimes, he will have three ice cream sandwiches or a brownie if he has a low glucose level. PAST MEDICAL HISTORY: Past medical history is significant for stroke like symptoms. The patient states he does not have a tumor on his heart as was thought after he had some diagnostic testing. He was happy to learn that. Sts he definitely does not have a tumor on his heart. REVIEW OF SYSTEMS: Depression and Mood: States he plans to schedule an appointment with Dr. Vu to followup gastroparesis. Eyes: No recent vision changes. No recent headaches or chest pain or shortness of breath. GI Symptoms: Takes Protonix. Extremities: He has low back pain and left-sided pain and a lot of left toe pain. PHYSICAL EXAMINATION: Appearance: He appears in good health. He is pleasant and talkative with good eye contact. Eyes: No retinopathy by green light exam. Neck: No thyromegaly or lymphadenopathy. Heart: Regular rate and rhythm. No murmurs. Lungs are clear to auscultation. Feet: Left first toe is much larger than right first toe. Pulses are normal. Neuro: Decreased sensation to 10 g of pressure. The patient is on the pancreas transplant list and he is hoping that he will be able to have a pancreas transplant. The other suggestion to avoid hypoglycemia is for him to try the Dexcom sensor. I gave him information on the Dexcom CGMS and when the available classes are and he will call to schedule that if he desires to try that, but he discusses how difficult it was to have his insurance approve the Minimed sensor. Has an appointment later this a.m. with VIK FARLEY. Prescriptions for insulin & OneTouch Ultra test strips were done for 90 days supply. I encouraged his to contact her insurance to discuss possible approval for her to have IV glucose therapy for him available at home. He discusses how frightening it is to know that if she was not available that he most likely would not have been able to manage the hypoglycemic events. He also discusses availability of a hypoglycemia alert dog to help sense low glucose levels. Return to office in August. Will check hemoglobin A1c and other labs that he is due for and will also schedule followup appointment with VIK FARLEY in August. This was a 36-minute office visit with 35 minutes spent counseling with the patient and in the management of glucose levels, prevention and treatment of hypoglycemia, suggestions for following a meal plan for gastroparesis, which includes more soups and making certain to have soups or an easier to digest meal plan every four hours and writing prescriptions. documented in this encounter Plan of Treatment Not on filedocumented as of this encounter Results Microalbumin, urine, random (09/14/2012 8:12 AM EST) P athologist Signature U Creatinine 104 mg/dL CERNER MILLENNIUM U Albumin Conc, <3.0 mg/L CERNER Random MILLENNIUM Alb/Cr Ratio, <3 mcg/mg Cr CERNER Random MILLENNIUM Comment: Reference Range* Random collection (mcg/mg creatinine) Normal ?<30 Microalbuminuria ?? 30 - 300 Clinical Albuminuria ?? >300 *German Diabetes Association. Diabetic Nephropathy. Diabetes Care 1997;(Suppl 1):S24-S27 Exercise within 24 hour, infection, fe judah, CHF, marked hyperglycemia, and marked hypertension may elevate urinary albumin excretion over baseline values. Specimen Anatomical Collection Method Collection Time Receive d Time (Source) Location / / Volume Laterality Urine specimen 09/14/2012 8:12 AM 013 8:19 (specimen) EST AM EST Resulting Agency Comment Spec In Lab Shaji Zavala MD URINE ORDERABLES Performing Organization Address City/State/[place] [address] CERNER MILLENNIUM LDL Cholesterol, Direct (09/14/2012 7:53 AM EST) P athologist Signature LDL Chol 73 <=99 mg/dL CERNER Direct MILLENNIUM Comment: The National Cholesterol Education Progr am (NCEP) has set the following guidelines for LDL Cholesterol: Reference range: ?? Optimal: ?<100 mg/dL ?? Near Optimal/Above Optimal: ?? 100-1 29 mg/dL ?? Borderline high: ?130-159 mg/dL ?? High: ? 160-189 mg/dL ?? Very high: ?>kl=871 mg/dL MARQUEZ 2001: 285(19):8760-3377 Specimen Anatomical Collection Method Collection Time Receive d Time (Source) Location / / Volume Laterality Blood specimen 09/14/2012 7:53 AM 013 7:57 (specimen) EST AM EST Resulting Agency Comment Spec In Lab Shaji Zavala MD CHEMISTRY ORDERABLES Performing Organization Address [facility]/State/[place] [address] [facility] HDL/Cholesterol Profile (09/14/2012 7:53 AM EST) P athologist Signature Chol, Total 131 <=199 mg/dL CERNER AutoG[employer]IUM Comment: Recommendations of the NCEP Adult Treatm ent Panel for the following risk cutoff thresholds for the [place] popul[place] n: Desirable: <200 mg/dL Borderline High: 200-239 mg/dL High: > or = 240 mg/dL HDL 52 >=40 mg/dL [facility] Comment: Reference range: ??Low HDL: ?? < 40 mg/dL ??Normal: ?40-60 mg/dL ??Desirable: > 60 mg/dL MARQUEZ 2001; 285(19):2262-2771 Chol/HDL Ratio 2.5 ratio [facility] [place] [facility] Comment: A Cholesterol to HDL ratio below 4:1 is desirable. ??Studies suggest that increased CAD risk occurs at ratios abov e 5 for females and above 6 for men. ? [place] Heart Association ??(htt p://www.americanheart.org) ? Joy Int Med, 1994; 121:641 ? AM J Med, 1998; 105(1A):48S Specimen Anatomical Collection Method Collection Time Receive d Time (Source) Location / / Volume Laterality Blood specimen 09/14/2012 7:53 AM 013 7:57 (specimen) EST AM EST Resulting Agency Comment Spec In Lab Shaji Zavala MD CHEMISTRY ORDERABLES Performing Organization Address City/State/[place] [address] [facility] MILL[facility]PITALIUM VIT D Total Evaluation (09/14/2012 7:53 AM EST) P athologist Signature 25-OH Vit D 33 30 - 100 CERNER Total ng/mL MILLENNIUM Comment: Deficient <10 ng/mL Insufficient 10 to 29 ng/mL Sufficient 30 to 100 ng/mL Potential Intoxication >100 ng/mL According to the US National Osteoporosi s Foundation, Vitamin D concentrations >30 ng/mL are sufficient to protect bone health. ??The National Kidney Foundation has similarly stated that pat ients with Vitamin D concentrations <30ng/mL should be considered to be insu fficient or deficient. http://www.kidney.org/professionals/KDOQ I/guidelines_bone/Guide7.htm http://www.nof.org/professionals/clinica l-guidelines The IDS iSYS Vitamin D Immunoassay detec ts both 25-OH Vitamin D2 and 25-OH Vitamin D3, but only a total Vitamin D c oncentration is reported. Specimen Anatomical Collection Method Collection Time Receive d Time (Source) Location / / Volume Laterality Blood specimen 09/14/2012 7:53 AM 013 7:57 (specimen) EST AM EST Resulting Agency Comment Spec In Lab Shaji Zavala MD CHEMISTRY ORDERABLES Performing Organization Address City/[facility]/[place] [address] [facility] (ABNORMAL) TSH (09/14/2012 7:53 AM EST) P athologist Signature TSH 4.64 (H) 0.27 - 4.20 CERNER mcIU/mL MILLENNIUM Specimen Anatomical Collection Method Collection Time Receive d Time (Source) Location / / Volume Laterality Blood specimen 09/14/2012 7:53 AM 013 7:57 (specimen) EST AM EST Resulting Agency Comment Spec In Lab Shaji Zavala MD CHEMISTRY ORDERABLES Performing Organization Address City/State/[place] [address] [facility] Hemoglobin A1c (09/14/2012 7:53 AM EST) Analysis Performed At [facility] Time Signature Hemoglobin A1C 7.6 (H) 4.3 - 6.[address] [facility] Est Avg Gluc 171 mg/dL [facility] Comment: eAG equivalents for HbA1c percentages: HbA1c(%) ?eAG(mg/dL) 6.0 ?126 6.5 ?140 7.0 ?154 7.5 ?169 8.0 ?183 8.5 ?197 9.0 ?212 9.5 ?226 10.0 ? 240 Limitations: The eAG calculation has not been validated on women, individuals below 18 years old and above 70 years old, and individuals with hemoglobinopathies. Additional resources are available on [facility] ADA website: ??http://professional.diabetes.org/gluc osecalculator.aspx Reference: Edinson GRISSOM, Nathaniel J, Ari R, et al. ??Tr anslating the A1C assay into estimated average glucose values. ??Diabetes Care 2008:31(8):8722-3922. Specimen Anatomical Collection Method Collection Time Receive d Time (Source) Location / / Volume Laterality Blood specimen 09/14/2012 7:53 AM 013 7:57 (specimen) EST AM EST Resulting Agency Comment Spec In Lab Shaji Zavala MD CHEMISTRY ORDERABLES Performing Organization Address City/State/[place] [address] [facility] (ABNORMAL) Comprehensive metabolic panel (non-fasting) (09/14/2012 7:53 AM EST) P athologist Signature Glucose Lvl 185 60 - 199 CERNER mg/dL MILLENNIUM Comment: Diabetes: >=200 mg/dL plus symp toms BUN 9 (L) 10 - 20 mg/dL CERNER MILLENNIU M Creatinine 1.01 0.80 - 1.50 mg/dL CERNER MILL ENNIUM Comment: Please note that the pediatric reference intervals supplied above were not validated at [facility]. Results from pediatri c patients should be [...] if there are any qu estions. Chloride 96 (L) 98 - 107 mmol/L CERNER MILLENN IUM CO2 30 22 - 31 mmol/L CERNER MILLENNI UM [...] 55 unit/L CERNER MILLENNIU M Alk Phos 89 40 - 120 unit/L CERNER MILLENN IUM Total Bilirubin 1.1 0.2 - 1.3 mg/dL CERNER M ILLENNIUM [...] Location / / Volume Laterality Blood specimen 09/14/2012 7:53 AM 013 7:57 (specimen) EST AM EST Resulting Agency Comment Spec In Lab Shaji Zavala MD CHEMISTRY ORDERABLES Performing Organization Address City/State/[place] [address] [facility] documented in this encounter Visit Diagnoses Diagnosis Diabetes mellitus type 1 with complicati ons - Primary Type I (juvenile type) diabetes mellitus with unspecified complication, not stated as uncontrolled documented in this encounter Care Teams Head Of English Relationship Specialty Start Date End Date Anna Mullen MD PCP - General 12/03/10 [address] [place] [address] documented as of this encounter
--- OUTSIDE RECORDS SUMMARY | 2022-03-13 18:35 | XMS_ITS | Encounter Summary ---
:1965 Author Organization [facility] [place] [address] Care Team Providers Name Role Phone Anna Mullen MD Primary Care Provider Reason for Visit Reason Comments Other Encounter Details Date Type Department Care Team Description 11/01/2012 Telephone Endocrinology at [facility] C Kostas Campos, [place] [address] Social History Tobacco Use Types Packs/Day Years Used Date Never Smoker Smokeless Tobacco: Never Used Alcohol Use Standard Drinks/Week Comments No 0 (1 standard drink = 0.6 oz pure alcoho l) history of abuse, stopped 1996 Sex Assigned at Date Recorded Male 05/29/2021 11:28 PM EDT documented as of this encounter Miscellaneous Notes Telephone Encounter - Kostas Campos RN - 11/01/2012 9:05 AM EST Una, This came through e-dh. Should he not go to PCP. Telephone Encounter - Kostas Campos RN - 11/01/2012 9:05 AM EST Message copied by KOSTAS CAMPOS on ThuNov 01, 2012 9:05 AM ------ Message from: SHIN Elliott - Created: Kranthi Oct 30, 2012 12:10 PM Regarding: Medication Question Hi there: I used to have a medication that starts with these letter CHRISTAL... This generic medication is for a breakout on my nose. My says it is like Herpess... I take it with Mupirocin 2% ointment [facility] causethe Mupirocin is not strong enough to take it away. I have not had a breakout in 1.5 years. and now I am having one. Can you please send a script for this medication RUTH. It was for 2 large pills thatI take two times per day for the breakout (4 pills per day). It should be on my medication list (probably in the inactive list) but I do not see it. Please send script to [facility] in [place], [place] . Let me know when this done so I can pick it up. Thank you Richard Hsu documented in this encounter Plan of Treatment Not on filedocumented as of this encounter Visit Diagnoses Not on filedocumented in this encounter Care Teams Drier Tender Naphthalene Relationship Specialty Start Date End Date Anna Mullen MD PCP - General 12/03/10 [address] [place] [address] documented as of this encounter
--- OUTSIDE RECORDS SUMMARY | 2022-03-13 18:35 | XMS_ITS | Encounter Summary ---
:1965 Author Organization [facility] [place] [address] Care Team Providers Name Role Phone Anna Mullen MD Primary Care Provider Reason for Visit Reason Onset Date Comments Medication Refill 05/15/2012 Encounter Details Date Type Department Care Team Description 05/15/2012 Refill Endocrinology at [facility] Una Dexter APRN [facility] [address] ENDOCRINOLOGY DEPT. [phone] [place], [place] [address] (Wo rk) Social History Tobacco [...] on filedocumented in this encounter Care Teams Mercury Recoverer Relationship Specialty Start Date End Date Anna Mullen MD PCP - General 12/03/10 [address] [place], [place] [id number] documented as of this encounter
--- OUTSIDE RECORDS SUMMARY | 2022-03-13 18:35 | XMS_ITS | Encounter Summary ---
:1965 Author Organization [facility] [place] [address] Care Team Providers Name Role Phone Anna Mullen MD Primary Care Provider Encounter Details Date Type Department Care Team Description 05/13/2012 External Results [place] [address] Social History Tobacco Use Types Packs/Day [...] nts TISSUE TYPING, ABO AND CROSSMATCH Routine 05/07/2012 documented in this encounter Results Scan Doc: Tissue Typing, ABO,and Crossmatch (05/07/2012) Narrative This result has an attachment that is no t available. Historical Provider MEDIA MGR SCAN EXT ORDR/RSLT documented in this encounter Visit Diagnoses Not on filedocumented in this encounter Care Teams Craft Center Director Relationship Specialty Start Date End Date Anna Mullen MD PCP - General 12/03/10 [address] [place] [address] documented as of this encounter
--- OUTSIDE RECORDS SUMMARY | 2022-03-13 18:35 | XMS_ITS | Encounter Summary ---
:1965 Author Organization [facility] [address] Care Team Providers Name Role Phone Anna Mullen MD Primary Care Provider Encounter Details Date Type Department Care Team Description 08/09/2012 External Results [place] [address] Social History Tobacco Use Types Packs/Day [...] nts TISSUE TYPING, ABO AND CROSSMATCH Routine 08/04/2012 documented in this encounter Results Scan Doc: Tissue Typing, ABO,and Crossmatch (08/04/2012) Narrative This result has an attachment that is no t available. Historical Provider MEDIA MGR SCAN EXT ORDR/RSLT documented in this encounter Visit Diagnoses Not on filedocumented in this encounter Care Teams Munitions Handler Supervisor Relationship Specialty Start Date End Date Anna Mullen MD PCP - General 12/03/10 [address] [place] [address] documented as of this encounter
--- OUTSIDE RECORDS SUMMARY | 2022-03-13 18:35 | XMS_ITS | Encounter Summary ---
:1965 Author Organization [facility] [place] [address] Care Team Providers Name Role Phone Anna Mullen MD Primary Care Provider Reason for Referral Consultation (Routine) - Closed Specialty Diagnoses / Procedures Referred By Contact Refer red To Contact Pain Management Diagnoses LBP radiating to right leg Jesus Diana MD [facility] [place] [facility] [address] [address] Fax: Referral ID Status Reason Start Date Expiration Date Visits V isits Requested Authorized [id number] Closed Consult, 12/24/2012 06/22/2013 1 1 Test & Treat Reason for Visit Reason Comments Low Back Pain Right Hip Pain Right Leg Pain with weakness in the leg Encounter Details Date Type Department Care Team Description 12/24/2012 Office Visit [facility], LBP ra diating to right [place] MORENO leg (Primary Dx) [facility] [address] [place], [place] [facility] [address] [place] [address] [phone] Social History Tobacco Use Types Packs/Day Years Used Date Never Smoker Smokeless Tobacco: Never Used Alcohol Use Standard Drinks/Week Comments No 0 (1 standard drink = 0.6 oz pure alcoho l) history of abuse, stopped 1996 Sex Assigned at Date Recorded Male 05/29/2021 11:28 PM EDT documented as of this encounter Progress Notes Jesus Diana MD - 12/24/2012 8:43 AM EDT I have reviewed this 47-year-old gentleman whom I have seen for low back pain and right leg pain in L4- L5 and S1 nerve root distribution in 2010 about 2 years back. He returns today with worsening symptom but symptoms are of similar in nature. He has moderate degree of persistent back pain but what has worsened recently is the right leg pain. This has significantly limited his physical activity. 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 Fortunately much of the neurological deficit has recovered leaving him little spastic and shortened left lower extremity. He had regained a lotof muscle power and had been wrestling until 2 years back. 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 He can walk without support but he cannot run because of mild spasticity particularly in the left upper and lower extremities. He doesn't complain of any bladder or bowel incontinence. That he has numbness and tingling together with pain in right L4-L5 and S1 dermatome. He has myoclonic movements involving any of the 4 extremities sporadically that could last for a fewseconds to almost an hour. This is being followed up by neurologists closely. This is never associated with any loss of consciousness and has not been diagnosed as a seizure disorder. Patient Active Problem List Diagnoses Code ??? LBP radiating to right leg 724.2 ??? Diabetes mellitus 250.00 ??? Stroke-like symptoms 781.99 ??? Hypertension 401.9 ??? Edema 782.3 ??? Gastroparesis due to DM 250.60 ??? Migraine 346.90 Past Surgical History Procedure Date ??? Created by interface [email or web address] Procedure Date: 07/18/2009 ??? Created by interface Entered not Verified Procedure Date: 10/24/2010 ??? Upper gi endoscopy, exam 12/31/2011 UPPER GI ENDOSCOPY performed by CLAYTON BHAKTA at [facility] ??? Upper gi endoscopy, biopsy 12/31/2011 UPPER GASTROINTESTINAL ENDOSCOPY,WITH BIOPSY SINGLE OR MULTIPLE performed by CLAYTON BHAKTA at [facility] ??? Shoulder surgery ??? Carpal tunnel release ??? Appendectomy ??? Musculoskeletal surgery unlisted 10 years carpel tunnel ??? Brain surgery 1976 stroke paralyze left side neck down Past Medical History Diagnosis Date ??? Severe [...] ill-defined conditions 3 years ago Tardive dyskinesia History Social History ??? Marital Status: Spouse Name: N/A Number of Children: N/A ??? Years of Education: N/A Occupational History ??? Not on file. Social History Main Topics ??? Smoking status: Never Smoker ??? Smokeless tobacco: Never Used ??? Alcohol Use: No history of abuse, stopped 1996 ??? Drug Use: No ??? Sexually Active: Yes deferred Other Topics Concern ??? Regular Exercise Is At Least 30 Minutes Of Moderate Physical Activity 5 Days A Week. This Would Be Walking Fast, Playing Tennis, Mowing The Lawn. Regular Exercise Is Also At Least 20 Minutes Of Vigorous Physical Activity 3 Days A Week. This Would Be Jogging, Swimming, Playing Basketball. Do You Get Regular Exercise? Yes yard work, push ups situps ??? Are You Or Have You Been Threatened Or Hurt Physically, Emotionally, Or Sexually By A Partner/Spouse/Family Member? 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 Lives with O/E: 6' (was 6'2 - reduced height due to scoliosis). 225 lbs. Normal affect. He was able to walk without support but a little slow and with a little broader base, and an antalgic limp on right leg. He could walk on heels and toes and right leg but not on the left leg because ofweakness. He uses a shoe lift on the left side because of leg length discrepancy. He can bend forward almost reaching close to lower third of the legs and return to normal erect posture without significant axial mechanical back pain or instability catch. SLR did not reproduce any radicular pain. He has numbness in right L5 and S1 dermatome. Motor power on right foot and ankle is weak by about 4/5 in both ankle plantar flexors and dorsiflexors. He is weaker in left lower extremity from pre-existing hemiparesis but he does not have any progressive neurological deficit in left lowerextremity from recent symptoms. Reflexes in left upper and lower extremities are significantly brisk. He also have brisk in right knee reflexes but right ankle reflex is possibly diminished from nerve r oot compression. He has normal reflexes in right upper extremity. Review of images: he came with a repeat MRI scan of the lumbosacral spine and he had the previous MRI scan in 2010. Both the MRI scans show that he has right- sided L5 and L4 exit foramen stenosis because of a lumbar scoliosis. The magnitude of foraminal stenosis it is little worse compared to previous MRI scan done 2 years back. He also had A scoliosis x-ray 2 years back and that showed he had a right convex lumbar scoliosis, with a balanced curve but the fractional curve towards the right side at lumbosacral junction was causing the narrowing of the exit foramen for L4 and L5 nerve roots. Assessment: this 47-year-old gentleman with childhood CVA that recovered largely is presenting todaywith worsening low back pain and right leg pain with leg pain being predominant and is involving right L4-L5 and S1 dermatome associated with weakness numbness and tingling. He prefers nonoperative treatment because he is on waiting list for pancreatic transplant. I think it is appropriate to try lumbar epidural steroid injections and in particular transforaminal lumbar epidural steroid injections to relieve the symptom. If the symptom does not respond to nonoperative treatment, I had a brief discussion about the surgical strategy and we can discuss about it in future visit. documented in this encounter Plan of Treatment Scheduled Referrals Name Type Priority Associated Diagnoses Order S chedule Referral to Pain Outpatient Referral Routine LBP radiating to Ordered: Clinic right leg 12/24/2012 documented as of this encounter Visit Diagnoses Diagnosis LBP radiating to right leg - Primary Lumbago documented in this encounter Care Teams Winding Inspector Relationship Specialty Start Date End Date Anna Mullen MD PCP - General 12/03/10 [address] [place] [address] documented as of this encounter
--- OUTSIDE RECORDS SUMMARY | 2022-03-13 18:35 | XMS_ITS | Encounter Summary ---
:1965 Author Organization [facility] Address [address] [place] [address] Care Team Providers Name Role Phone Anna Mullen MD Primary Care Provider Reason for Visit Reason Comments Diabetes Encounter Details Date Type Department Care Team Description 09/14/2012 Office Visit Endocrinology at [facility] Una Dexter Diabetes mellitus type 1 wit h complications (Primary Dx); [facility], POWER HAMMER OPERATOR Lower leg pain; [facility] [place] [address] [facility] [phone] [place] [address] Social History Tobacco Use Types Packs/Day Years Used Date Never Smoker Smokeless Tobacco: Never Used Alcohol Use Standard Drinks/Week Comments No 0 (1 standard drink = 0.6 oz pure alcoho l) history of abuse, stopped 1996 Sex Assigned at Date Recorded Male 05/29/2021 11:28 PM EDT documented as of this encounter Last Filed Vital Signs Vital Sign Reading Time Taken Comments Blood Pressure 125/67 09/14/2012 8:11 AM EST Pulse 56 09/14/2012 8:11 AM EST Temperature - - Respiratory Rate - - Oxygen Saturation - - Inhaled Oxygen Concentration - - Weight 103 kg (227 lb) 09/14/2012 8:11 AM EST Height - - Body Mass Index 31.43 05/19/2012 8:44 AM EDT documented in this encounter Progress Notes Una Lassiter, POWER HAMMER OPERATOR - 09/14/2012 7:47 PM EST DATE OF VISIT: 09/14/2012 REASON FOR VISIT: Followup type 1 DM with complication of gastroparesis and history of stroke. Also, followup hypothyroidism. BRIEF HISTORY: Presents with . States he is having more pain in his right lower leg. Pain has been diagnosed as pain radiating from low back pain and neuropathy. DIABETES REGIMEN: MiniMed insulin pump. Basal rates 12 a.m. 1.0, 2 a.m. 1.0, 6 a.m. 1.5, 11 a.m. 1.4, 5 p.m. 1.3, 9 p.m. 1.3, and 11 p.m. 1.3. Prevention strategies are up-to-date. He did have a flu vaccine. SBGM, 8 to 10 times a day. REVIEW OF SYSTEMS: Depression and Mood: Overall, is doing okay. Enjoys making furniture, but discusses pain in right lower leg. Eyes: No recent vision changes. No recent headaches or chest pain or shortness of breath. No recent GI symptoms. Has gastroparesis. Sleep pattern has been okay. Extremities: Left leg weakness following stroke and right lower leg pain. PHYSICAL EXAMINATION: Appearance: He appears in very good health. Eyes: No retinopathy by green light exam. Neck: No thyromegaly or lymphadenopathy. Heart: Regular rate and rhythm. No murmurs. Lungs are clear to auscultation. Feet: Skin is normal. Pulses are normal. Neuro: Decreased sensation to 10 g of pressure on the left, normal on the right. Brings detailed computerized glucose logs. Has been having much less hypoglycemia since previous office visit to endocrinology. Hemoglobin A1c 7.6%, previous was 7.5%. IMPRESSION AND PLAN: Diabetes mellitus type 1 in good overall control with less occurrence of hypoglycemia. No change in regimen today. Congratulated the patient with exemplary glucose record keeping. Requests refill of Viagra which was done and given to patient's . The patient does not take nitrates. Right lower leg pain, the patient would like to schedule ultrasound to make certain that Circulation is okay. Will schedule that. He is at high risk for sleep apnea. The patient states he will talk with primary care physician and schedule sleep study closer to home if available. Has been having trouble getting pump supplies. Telephone call to [facility] medical supply and the patient was informed that supplies will be mailed soon. This was a 40-minute office visit with 39 minutes spent counseling face to face with the patient and in the management of glucose levels, reviewing his detail computerized glucose logs. Goal from previous office visit was to lessen the occurrence of severe hypoglycemic events, which was accomplished. Return to office in four months with Dr. Coles and also schedule an appointment with RN, CHRISTIAN. Will check hemoglobin A1c, TSH, and microalbumin. documented in this encounter Plan of Treatment Not on filedocumented as of this encounter Procedures Procedure Name Priority Date/Time Associated Diagnosis Comme nts U ALBUMIN/CRE RATIO Routine 09/14/2012 8:12 Diabetes mellitus Results for this AM EST type 1 with procedure are i n complications the results section. VITAMIN D, 25-HYDROXY Routine 09/14/2012 7:53 Diabetes mellitu s Results for this AM EST type 1 with procedure are i n complications the results section. TSH Routine 09/14/2012 7:53 Diabetes mellitus Results for this AM EST type 1 with procedure are i n complications the results section. LDL CHOLESTEROL, Routine 09/14/2012 7:53 Diabetes mellitus Res ults for this DIRECT AM EST type 1 with procedure are i n complications the results section. HDL/CHOL PROFILE Routine 09/14/2012 7:53 Diabetes mellitus Res ults for this AM EST type 1 with procedure are i n complications the results section. HEMOGLOBIN A1C Routine 09/14/2012 7:53 Diabetes mellitus Resul ts for this AM EST type 1 with procedure are i n complications the results section. COMPREHENSIVE Routine 09/14/2012 7:53 Diabetes mellitus Result s for this METABOLIC PANEL AM EST type 1 with procedure ar e in (NON-FASTING) complications the results section. documented in this encounter [...] CHEMISTRY ORDERABLES Performing Organization Address City/State/ZIP Code [place] [address] CERNER MILLENNIUM (ABNORMAL) Hemoglobin A1c (02/07/2013 9:55 AM EDT) Analysis Performed At [facility] Time Signature Hemoglobin A1C 7.9 (H) 4.3 - 6.1 CERNER % MILLENNIUM Comment: The [place] Diabetes Association (ADA) has stated that HbA1c [...] Additional resources are available on ADA website: ??http://professional.diabetes.org/gluc osecalculator.aspx Edinson GRISSOM, Nathaniel J, Ari R, et al. ??Tr anslating the A1C assay into estimated average glucose values. ??Diabetes Care 2008:31(8):5641-3122. Specimen Anatomical Collection Method Collection Time Receive d Time (Source) Location / / Volume Laterality Blood specimen 02/07/2013 9:55 AM 013 (specimen) EDT 10:00 AM EDT Resulting Agency Comment Spec In Lab Shaji Zavala MD CHEMISTRY ORDERABLES Performing Organization Address [facility]/[address] CERNER MILLENNIUM Microalbumin, urine, random (09/14/2012 8:12 AM EST) P athologist Signature U Creatinine 104 mg/dL CERNER MILLENNIUM U Albumin Conc, <3.0 mg/L CERNER Random MILLENNIUM Alb/Cr Ratio, <3 mcg/mg Cr CERNER Random MILLENNIUM Comment: Reference Range* Random collection (mcg/mg creatinine) Normal ?<30 Microalbuminuria ?? 30 - 300 Clinical Albuminuria ?? >300 *[place] Diabetes Association. Diabetic Nephropathy. Diabetes Care 1997;(Suppl 1):S24-S27 Exercise within 24 hour, infection, fe judah, CHF, marked hyperglycemia, and marked hypertension may elevate urinary albumin excretion over baseline values. Specimen Anatomical Collection Method Collection Time Receive d Time (Source) Location / / Volume Laterality Urine specimen 09/14/2012 8:12 AM 013 8:19 (specimen) EST AM EST Resulting Agency Comment Spec In Lab Shjai Zavala MD URINE ORDERABLES Performing Organization Address [facility] [address] CER[employer]agon Pharm[employer]IUM LDL Cholesterol, Direct (09/14/2012 7:53 AM EST) P athologist Signature LDL Chol 73 <=99 mg/dL [facility] Direct [facility] Comment: The National Cholesterol Education Progr am (NCEP) has set the following guidelines for LDL Cholesterol: Reference range: ?? Optimal: ?<100 mg/dL ?? Near Optimal/Above Optimal: ?? 100-1 29 mg/dL ?? Borderline high: ?130-159 mg/dL ?? High: ? 160-189 mg/dL ?? Very high: ?>eo=246 mg/dL MARQUEZ 2001: 285(19):4713-9430 Specimen Anatomical Collection Method Collection Time Receive d Time (Source) Location / / Volume Laterality Blood specimen 09/14/2012 7:53 AM 013 7:57 (specimen) EST AM EST Resulting Agency Comment Spec In Lab Shaji Zavala MD CHEMISTRY ORDERABLES Performing Organization Address City/State/[place] [address] [facility] HDL/Cholesterol Profile (09/14/2012 7:53 AM EST) P athologist Signature Chol, Total 131 <=199 mg/dL [facility] Comment: Recommendations of the NCEP Adult Treatm ent Panel for the following risk cutoff thresholds for the [place] populatio n: Desirable: <200 mg/dL Borderline High: 200-239 mg/dL High: > or = 240 mg/dL HDL 52 >=40 mg/dL [facility] Comment: Reference range: ??Low HDL: ?? < 40 mg/dL ??Normal: ?40-60 mg/dL ??Desirable: > 60 mg/dL MARQUEZ 2001; 285(19):6200-8087 Chol/HDL Ratio 2.[address] [facility] Comment: A Cholesterol to HDL ratio below 4:1 is desirable. ??Studies suggest that increased CAD risk occurs at ratios abov e 5 for females and above 6 for men. ? [place] Heart Association ??(htt p://www.americanheart.org) ? Joy Int Med, 1994; 121:641 ? AM J Med, 1998; 105(1A):48S Specimen Anatomical Collection Method Collection Time Receive d Time (Source) Location / / Volume Laterality Blood specimen 09/14/2012 7:53 AM 013 7:57 (specimen) EST AM EST Resulting Agency Comment Spec In Lab Shaji Zavala MD CHEMISTRY ORDERABLES Performing Organization Address City/[facility] Phon e Number [address] CERNER MILLENNIUM VIT D Total Evaluation (09/14/2012 7:53 AM [...] Zavala MD CHEMISTRY ORDERABLES Performing Organization Address City/[facility]/ZIP [facility] Phon e Number [address] CERNER Fast PCR DiagnosticsENNIUM (ABNORMAL) TSH (09/14/2012 7:53 AM EST) P athologist Signature TSH 4.64 (H) 0.27 - 4.20 CERNER mcIU/mL MILLENNIUM Specimen Anatomical Collection Method Collection Time Receive d Time (Source) Location / / Volume Laterality Blood specimen 09/14/2012 7:53 AM 013 7:57 (specimen) EST AM EST Resulting Agency Comment Spec In Lab Shaji Zavala MD CHEMISTRY ORDERABLES Performing Organization Address City/State/[place] [address] CERNER MILLENNIUM (ABNORMAL) Hemoglobin A1c (09/14/2012 7:53 AM EST) Analysis Performed At Patho logist Time Signature Hemoglobin A1C 7.6 (H) 4.3 - 6.1 CERNER % MILLENNIUM Est Avg Gluc 171 mg/dL CERNER MILLENNIUM Comment: eAG equivalents for HbA1c percentages: HbA1c(%) ?eAG(mg/dL) 6.0 ?126 6.5 ?140 7.0 ?154 7.5 ?169 8.0 ?183 8.5 ?197 9.0 ?212 9.5 ?226 10.0 ? 240 Limitations: The eAG calculation has not been validated on women, individuals below 18 years old and above 70 years old, and individuals with hemoglobinopathies. Additional resources are available on ADA website: ??http://professional.diabetes.org/gluc osecalculator.aspx Reference: Edinson GRISSOM, Nathaniel J, Ari R, et al. ??Tr anslating the A1C assay into estimated average glucose values. ??Diabetes Care 2008:31(8):1746-0382. Specimen Anatomical Collection Method Collection Time Receive d Time (Source) Location / / Volume Laterality Blood specimen 09/14/2012 7:53 AM 013 7:57 (specimen) EST AM EST Resulting Agency Comment Spec In Lab Shaji Zavala MD CHEMISTRY ORDERABLES Performing Organization Address City/State/[place] [address] CERNER MILLENNIUM (ABNORMAL) Comprehensive metabolic panel (non-fasting) (09/14/2012 7:53 AM EST) athologist Signature Glucose Lvl 185 60 - 199 CERNER mg/dL MILLENNIUM Comment: Diabetes: >=200 mg/dL plus symp toms BUN 9 (L) 10 - 20 mg/dL CERNER MILLENNIU M Creatinine 1.01 0.80 - 1.50 mg/dL CERNER MILL ENNIUM Comment: Please note that the pediatric reference intervals supplied above were not validated at [facility]. Results from pediatri c patients should be [...] disease. References: http://nkdep.nih.gov/resources/NKDEP_Sug gestn4Labs_0606_508.pdf http://www.kidney.org/professionals/kls/ pdf/faq_gfr.pdf Matthew Flores, Yunior NA, Azucena AK, Perfecto TS, Lynda [...] Organization Address City/State/ZIP Code Phon e Number [place] [phone] [facility] documented in this encounter Visit Diagnoses Diagnosis Diabetes mellitus type 1 with complicati ons - Primary Type I (juvenile type) diabetes mellitus with unspecified complication, not stated as uncontrolled Lower leg pain Pain in limb Hypothyroid Unspecified hypothyroidism documented in this encounter Care Teams Insurance Sales Associate Relationship Specialty Start Date End Date Anna Mullen MD PCP - General 12/03/10 [address] [place] [address] documented as of this encounter
--- OUTSIDE RECORDS SUMMARY | 2022-03-13 18:35 | XMS_ITS | Encounter Summary ---
:1965 Author Organization [facility] [place] [address] Care Team Providers Name Role Phone Anna Mullen MD Primary Care Provider Encounter Details Date Type Department Care Team Description 03/24/2012 Follow-Up Cardiology at [facility] Nabeel Araiza Lightheadedness (Primary [facility] MD Dx) [place] [address] CARDIOLOGY DEPT. [phone] [place], [place] [address] (Wo rk) Social History Tobacco [...] Sign Reading Time Taken Comments Blood Pressure 118/86 03/24/2012 8:44 AM EDT Pulse 60 03/24/2012 8:44 AM EDT Temperature - - Respiratory Rate - - Oxygen Saturation - - Inhaled Oxygen Concentration - - Weight 103.9 kg (229 lb) 03/24/2012 8:44 AM EDT Height 182.9 cm (6') 03/24/2012 8:44 AM EDT Body Mass Index 31.06 03/24/2012 8:44 AM EDT documented in this encounter Progress Notes Nabeel Araiza MD - 03/30/2012 8:36 PM EDT Patient Active Problem List Diagnoses ??? Diabetes mellitus -on insulin pump ??? Gastroparesis due to DM ??? Stroke-like symptoms ??? Hypertension ??? Edema -possibly due to norvasc ??? Migraine ??? LBP radiating to right leg Outpatient encounter prescriptions as of 03/24/2012 Medication Sig Dispense Refill ??? ondansetron (ZOFRAN) 4 mg tablet Take 4 mg by mouth as needed. ??? valACYclovir (VALTREX) 500 mg tablet Take 500 mg by mouth as needed. ??? magnesium oxide (MAG-OX) 400 mg tablet Take 400 mg by mouth 2 times daily. ??? pantoprazole (PROTONIX) 40 mg tablet Take 40 mg by mouth daily. ??? trimethobenzamide (TIGAN) 300 mg capsule Take 300 mg by mouth 2 times daily. ??? glucagon, human recombinant, 1 mg injection Inject 1 mL as directed as needed. 2 each 11 ??? citalopram (CELEXA) 20 mg tablet Take 40 mg by mouth daily. ??? divalproex (DEPAKOTE ER) 250 mg 24 hr tablet Take 1 tablet by mouth daily. Call to adjust in 1 week. 30 tablet 11 ??? naproxen sodium (ANAPROX) 550 mg tablet Take 1 tablet by mouth 2 times daily as needed (for breakthrough headaches). 60 tablet 5 ??? verapamil (CALAN-SR) 240 mg CR tablet Take 240 mg by mouth 2 times daily. ??? amlodipine (NORVASC) 5 mg tablet Take 5 mg by mouth daily. ??? carvedilol (COREG) 3.125 mg tablet Take 3.125 mg by mouth 2 times daily (with meals). ??? ibuprofen (ADVIL;MOTRIN) 800 mg tablet Take 1 tablet by mouth every 8 hours as needed for Pain. 270 tablet 3 ??? levothyroxine (SYNTHROID) 175 mcg tablet Take 1 tablet by mouth daily. 90 tablet 4 ??? losartan (COZAAR) 100 mg tablet Take 100 mg by mouth daily. ??? pravastatin (PRAVACHOL) 40 mg tablet Take 40 mg by mouth daily. ??? traMADol (ULTRAM) 50 mg tablet Take 100 mg by mouth 2 times daily. ??? [place]-3 Fatty Acids-Vitamin E (FISH OIL) 1,000 mg Cap Take 5,000 mg by mouth daily. ??? Acetone, Urine, Test (ACETONE, URINE, TEST) Strp by Mis.(Non-Drug; Combo Route) route. ??? hydrOXYzine (VISTARIL) 25 mg capsule Take 25 mg by mouth 2 times daily as needed. For headaches ??? hydrochlorothiazide (HYDRODIURIL) 25 mg tablet Take 25 mg by mouth daily. ??? insulin aspart (NOVOLOG) 100 unit/mL injection Inject subcutaneously. 100 units/Ml solution. Approximally 80 units subcutaneous by pump. ??? CALCIUM CARBONATE (CALCIUM 600 ORAL) Take 1,200 mg by mouth daily. ??? GLUCOSAMINE HCL/CHONDRO ROGERS A (GLUCOSAMINE-CHONDROITIN ORAL) Take 3 tablets by mouth daily. ??? multivitamin (THERAGRAN) tablet Take 1 tablet by mouth daily. ??? aspirin 325 mg tablet Take 325 mg by mouth daily. ??? promethazine (PHENERGAN) 25 mg suppository 25 MG = 1 Suppository(s), FL, Once daily,PRN ??? DISCONTD: Magnesium Oxide 250 mg Tab Take by mouth 2 times daily. HPI: Richard returns to the cardiology clinic with his mother to review results of the recent PALLAVI. He initially came to our office with concerns about a possible mass on his aortic valve. I reviewed a copy of his PALLAVI from [place] at our monthly inter-departmental valve conference and the majority of the audience members thought that this was likely mild focal thickening of the aortic valve with some off-axis views. To be certain, we obtained our own study as follows: PALLAVI at [facility] (February 2012): 1. Left ventricular chamber size, wall thickness, global and segmental systolic function are within normal limits. Ejection fraction is estimated to be 60%. 2. Right ventricular chamber size, wall thickness, and systolic function are within normal limits. 3. The left atrium is normal in size. No clot is noted in the left atrial appendage. No atrial septal defect is visualized. 4. There is no hemodynamically significant valve disease and no tumors or vegetations. A tiny (approximately 2 mm) filamentous structure is seen on the ventricular side of the right coronary cusp consistent with a Lambl's excrescence (valve strand) and is likely of no clinical signficance. This is seen in loop 8 when played at slow speed. 5. There is no plaque visualized in the ascending aorta. Review of Systems Constitutional: Negative for fever, malaise/fatigue and weight gain. HENT: Negative. Negative for congestion and headaches. Eyes: Negative for blurred vision and visual disturbance. Cardiovascular: Negative for chest pain, claudication, dyspnea on exertion, irregular heartbeat, legswelling, near-syncope, orthopnea, palpitations, PND and syncope. Respiratory: Negative for cough, shortness of breath and wheezing. Hematologic/Lymphatic: Negative. Skin: Negative for rash. Musculoskeletal: Negative for joint pain and myalgias. Gastrointestinal: Negative for abdominal pain, nausea and vomiting. All other systems reviewed and are negative. Exam: Filed Vitals: 03/24/12 0844 BP: 118/86 Pulse: 60 Height: 182.9 cm (6') Weight: 103.874 kg (229 lb) Physical Exam - no change from prior exam Constitutional: Oriented to person, place, and time. He appears well-developed and well-nourished. Eyes: Pupils are equal, round, and reactive to light. Neck: Normal range of motion. No JVD present. Cardiovascular: Normal rate and regular rhythm. Exam reveals no gallop and no friction rub. No murmur heard. Pulmonary/Chest: Effort normal and breath sounds normal. He has no wheezes. He has no rales. Abdominal: Soft. Bowel sounds are normal. No tenderness. Musculoskeletal: Normal range of motion. He exhibits no edema. Neurological: He is alert and oriented to person, place, and time. Skin: No rash noted. Assessment and Plan: I reviewed the images on the recent PALLAVI from [facility] and the prior study in [place]. I reviewed some of these images with the patient and his mother. I explained that I do not think that there is a pathologic mass on the aortic valve. I do not even think there is a distinct mass on the aortic valve. I think the prior study may have had some off axis views of the aortic valve (short axis at 85 degrees)that creates some false thickening of the leaflet. 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 The tiny strand is not significant. The patient was surprised by this but happy that he did not have to have heart surgery. He may want to review the images with another physician and I provided him with a CD that has the PALLAVI from [facility] and from [place]. I would be happy to see him again if there are any other concerns. I encouraged the patient to continue to follow-up with the neuro clinic as I suspect many of his symptoms are neurologic in origin. documented in this encounter Plan of Treatment Not on filedocumented as of this encounter Visit Diagnoses Diagnosis Lightheadedness - Primary Dizziness and giddiness documented in this encounter Care Teams Surgery Consultant Relationship Specialty Start Date End Date Anna Mullen MD PCP - General 12/03/10 [address] [place] [address] documented as of this encounter
--- OUTSIDE RECORDS SUMMARY | 2022-03-13 18:35 | XMS_ITS | Encounter Summary ---
:1965 Author Organization [facility] [place] [address] Care Team Providers Name Role Phone Anna Mullen MD Primary Care Provider Reason for Visit Reason Comments Back Pain Encounter Details Date Type Department Care Team Description 01/06/2013 Procedure visit [facility] Management at [facility] [place] [facility] [address] [id number] [phone] Social History Tobacco Use Types Packs/Day Years Used Date Never Smoker Smokeless Tobacco: Never Used Alcohol Use Standard Drinks/Week Comments No 0 (1 standard drink = 0.6 oz pure alcoho l) history of abuse, stopped 1996 Sex Assigned at Date Recorded Male 05/29/2021 11:28 PM EDT documented as of this encounter Last Filed Vital Signs Vital Sign Reading Time Taken Comments Blood Pressure 102/68 01/06/2013 8:39 AM EDT Pulse 70 01/06/2013 8:39 AM EDT Temperature - - Respiratory Rate - - Oxygen Saturation 100% 01/06/2013 8:39 AM EDT Inhaled Oxygen Concentration - - Weight 102.1 kg (225 lb) 01/06/2013 8:19 AM EDT Height 182.9 cm (6') 01/06/2013 8:19 AM EDT Body Mass Index 30.52 01/06/2013 8:19 AM EDT documented in this encounter Patient Instructions Patient InstructionsEufemia Menard RN - 01/06/2013 8:28 AM EDT Pain Management Center Discharge Instructions: You were seen by Dr. owens who performed right, bilateral transforaminal injection. [x] You may resume your normal activities: tomorrow. [...] your bladder 4-6 hours after your procedure. [x] If you have diabetes, monitor your blood sugars frequently. If your blood sugar increases and isof concern, contact your Primary Care Provider. You received the following medications: omnipaque dye , 16 mg. dexametasone lidocaine During regular business hours, please phone the Pain Management Center at for appointments or with any questions or if the following [...] or proceed to your local emergency department. EUFEMIA MENARD RN Special instructions documented in this encounter Progress Notes Eufemia Menard RN - 01/06/2013 8:17 AM EDT Pre-Procedure Screening Questions: 1. Status: No 2. 3. Patient states they have a coal tram driver to transport after procedure? Yes 4. Patient taking antibiotics at present? No 5. NPO per Pain Management Center protocol? No 6. 7. Patient diabetic: Yes __ borderline (not treated with medications) __ managed with oral medications _x_ managed with injected medications 8. Patient routinely taking anticoagulants ? No Date stopped Current INR Patient Vital Signs documented in Doc Flowsheets associated with this encounter. Patient Discharge Instructions were reviewed with patient and copy provided to patient. documented in this encounter Procedure Notes [facility] - 01/06/2013 8:48 AM EDTAssociated Order(s): TRANSFORAMINAL INJECTION Procedure(s): TRANSFORAMINAL INJECTION Pre-Procedure Diagnose(s): Lumbar radiculopathy LUMBAR TRANSFORAMINAL INJECTION Richard Hsu has been referred to the Pain Management Center for a transforaminal nerve root block and steroid injection. COMMENTS: Right leg pain. Richard Hsu was interviewed and the medical record reviewed. There were no medical, pharmacologic, radiographic or other structural contraindications to attempting fluoroscopically guided transforaminal nerve root block and epidural steroid injection. Risks and expected side effects as well as potential benefit of the procedure were reviewed with Richard Hsu, and his voiced concerns addressed. The printed consent form was signed and witnessed. Richard Hsu was placed in the prone position on the fluoroscopy table and automated blood pressure cuff and pulse oximeter applied. Fluoroscopy was utilized to identify the L-4 and L-5 vertebral body. The right-sided oblique projection was then fashioned to see the neck of the antony-dog at the L-4 and L-5 neural foramen between L-4 and L-5. A skin chantelle was made for the needle insertion site. A Chlorhexadine prep was carried out, and sterile drapes were applied. Local anesthesia was achieved inthe skin and subcutaneous tissues. A 22 gauge curved tip spinal needle was then inserted, advanced with fluoroscopic guidance until it entered into the neural foramen, confirmed on the lateral view. After negative aspiration, 1 cc of Omnipaque 240 was injected. This showed a good spread of dye transforaminally into the epidural space. After repeat negative aspiration 8mg of decadron was injected, followed by 1 cc's of 1% Xylocaine flush for the nerve root block, as well. There was no unusual discomfo rt expressed by Richard Guillen Aracelis. The needle was withdrawn. The patient tolerated the procedure well. A Band-Aid was applied. Richard Hsu's vital signs were stable throughout the procedure and were as recorded in nursing records. Intravenous drugs for sedation and analgesia were not given as ordered by me. Follow up plan and appointments were discussed with Richard Guillen Aracelis. Post procedure instructions were given as documented in nursing records and having met discharge criteria, he was discharged from the Pain Management Center. COMMENTS: Patient will follow up with Dr. Lebron rome. documented in this encounter Miscellaneous Notes Miscellaneous - Provider, Scanning - 01/07/2013 10:59 AM EDT documented in this encounter Plan of Treatment Not on filedocumented as of this encounter Procedures Procedure Name Priority Date/Time Associated Diagnosis Comme nts TRANSFORAMINAL Routine 01/06/2013 8:52 Lumbar radiculopathy Re sults for this INJECTION AM EDT procedure are i n the results section. documented in this encounter Results TRANSFORAMINAL INJECTION (01/06/2013 8:52 AM EDT) Narrative [facility] - 01/06/2013 8:52 AM EDT [facility] MD ? 01/06/2013 ??8:52 AM LUMBAR ??TRANSFORAMINAL INJECTION Richard Wilmer Aracelis has been referred to [facility] for a transforaminal nerve root block an d steroid injection. ?? COMMENTS: Right leg pain. Richard Hsu was interviewed and the medical record reviewed. There were no medical, pharmacologic, r adiographic or other structural contraindications to attempti ng fluoroscopically guided transforaminal nerve root block a nd epidural steroid injection. ??Risks and expected side eff ects as well as potential benefit of the procedure were reviewed w abe Hsu, and his voiced concerns addressed. ??The [facility] consent form was signed and witnessed. ?? Richard Hsu was placed in the prone position on the fluoroscopy table and automated blood pr essure cuff and pulse oximeter applied. ??Fluoroscopy was util ized to identify the L-4 and L-5 vertebral body. ??The right-side d oblique projection was then fashioned to see the neck of the sc otty-dog at the L-4 and L-5 neural foramen between L-4 and L-5. ??A skin chantelle was made for the needle insertion site. ??A Chlorhexa dine prep was carried out, and sterile drapes were applied. ??Local anesthesia was achieved in the skin and subcutaneous tissues. ?? A 22 gauge curved tip spinal needle was then inserted, advance d with fluoroscopic guidance until it entered into the neura l foramen, confirmed on the lateral view. ??After negative aspir ation, 1 cc of Omnipaque 240 was injected. ??This showed a good s pread of dye transforaminally into the epidural space . ??After repeat negative aspiration 8mg of decadron was injected, followed by 1 cc's of 1% Xylocaine flush for the nerve root block , as well. ??There was no unusual discomfort expressed by Richard Hsu. ??The needle was withdrawn. The patient tolerated the pro cedure well. ??A Band-Aid was applied. Richard Hsu's vital signs were stab le throughout the procedure and were as recorded in nursin g records. ??Intravenous drugs for sedation and analgesia were no t given as ordered by me. Follow up plan and appointments were dis cussed with Richard Hsu. Post procedure instructions wer e given as documented in nursing records and having met discharge criteria, he was discharged from the Pain Management [facility] er. COMMENTS: Patient will follow up with Dr Jadyn rome. Procedure Note [facility] - 01/06/2013 8:48 AM EDTFo rmatting of this note might be different from the original. LUMBAR TRANSFORAMINAL INJECTION Richard Hsu has been referred to [facility] for a transforaminal nerve root block and steroid injection. COMMENTS: Right leg pain. Richard Hsu was interviewed and the medical record reviewed. There were no medical, pharmacologic, radiographic or other structural contraindications to attempting fluoroscopically guided transforaminal nerve root block and epidural steroid in jection. Risks and expected side effects as well as potential benefit of the procedure were reviewed with Richard Hsu, and his voiced concerns addressed. The printed consent form was signed and witnessed. Richard Hsu was placed in the prone position on the fluoroscopy table and automated blood pressure cuff and pulse oximeter applied. Fluoroscopy was utilized to identify the L-4 and L-5 vertebral body. The right-sided oblique projection was then fashioned to see the neck of the antony-dog at the L-4 and L-5 neural foramen between L-4 and L-5. A skin chantelle was made for the needle insertion site. A Chlorhexadine prep was carried out, and sterile drapes were applied. Local anest hesia was achieved in the skin and subcutaneous tissues. A 22 gauge curved tip spinal needle was then inserted, advanced with fluoroscopic guidance until it entered into the neural foramen, confirmed on the lateral view. After negative aspiration, 1 cc of Omnipaque 240 was injected. This showed a good spread of dye transforaminally into the epidural space. After repeat negative aspiration 8mg of decadron was injected, followed by 1 cc's of 1% Xylocaine flush for the nerve root block, as well. There was no unusual discomfort expressed by Richard Hsu. The needle was withdrawn. The patient tolerated the procedure well. A Band-Aid was applied. Richard Hsu's vital signs were stab le throughout the procedure and were as recorded in nursing records. Intravenous drugs for sedation and analgesia were not given as ordered by me. Follow up plan and appointments were dis cussed with Richard Hsu. Post procedure instructions were given as documented in nursing records and having met discharge criteria, he was discharged from the Pain Management Center. COMMENTS: Patient will follow up with Dr Jadyn rome. [facility] MD PROCEDURE/MINOR SURGICAL ORD ERABLES documented in this encounter Visit Diagnoses Diagnosis Lumbar radiculopathy - Primary Thoracic or lumbosacral neuritis or radi culitis, unspecified documented in this encounter Administered Medications Inactive Administered Medications - up to 3 most recent administrations Medication Order MAR Action Action Date Dose Rate Site dexamethasone sodium (PF) injection Given 01/06/2013 8:45 AM EDT 8 mg 8 mg 8 mg, Epidural, ONCE, 1 dose, On Vanessa 01/06/13 at 0845, Wasted 2mg, Routine iohexol (OMNIPAQUE) injection 1 mL Given 01/06/2013 8:45 AM EDT 1 mL 1 mL, Epidural, ONCE, 1 dose, On Vanessa 01/06/13 at 0845, Wasted 49 ml, Routine documented in this encounter Care Teams [employer] Truck Driver Relationship Specialty Start Date End Date Anna Mullen MD PCP - General 12/03/10 [address] [place] [address] documented as of this encounter
--- OUTSIDE RECORDS SUMMARY | 2022-03-13 18:35 | XMS_ITS | Encounter Summary ---
:1965 Author Organization [facility] [place] [address] Care Team Providers Name Role Phone Anna Mullen MD Primary Care Provider Encounter Details Date Type Department Care Team Description 05/21/2012 Notes Only Solid Organ Transplant at [facility] [place] [phone] Social History Tobacco Use Types Packs/Day Years Used Date Never Smoker Smokeless Tobacco: Never Used Alcohol Use Standard Drinks/Week Comments No 0 (1 standard drink = 0.6 oz pure alcoho l) history of abuse, stopped 1996 Sex Assigned at Date Recorded Male 05/29/2021 11:28 PM EDT documented as of this encounter Progress Notes Divya Dia RN - 05/21/2012 9:15 AM EDT Called patient to let him know that 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 Patient reminded of the importance of monthly lab draws, he states that he understands. Patient will receive a letter about his reactivation. Advised patient to call with any questions or concerns. documented in this encounter Plan of Treatment Not on filedocumented as of this encounter Visit Diagnoses Not on filedocumented in this encounter Care Teams Coil Shaper Relationship Specialty Start Date End Date Anna Mullen MD PCP - General 12/03/10 [address] [place] [address] documented as of this encounter
--- OUTSIDE RECORDS SUMMARY | 2022-03-13 18:35 | XMS_ITS | Encounter Summary ---
:1965 Author Organization [facility] [place] [address] Care Team Providers Name Role Phone Anna Mullen MD Primary Care Provider Reason for Visit Reason Comments Pancreas Transplant Evaluation Diabetes Mellitus Encounter Details Date Type Department Care Team Description 05/19/2012 Office Visit Solid Organ Eriberto Melgar Diabetes mellitus [place] [facility] [place] (Primary Dx[place] Former[facility] [address] [place] [address] [place] [address] [phone] Social History Tobacco Use Types Packs/Day Years Used Date Never Smoker Smokeless Tobacco: Never Used Alcohol Use Standard Drinks/Week Comments No 0 (1 standard drink = 0.6 oz pure alcoho l) history of abuse, stopped 1996 Sex Assigned at Date Recorded Male 05/29/2021 11:28 PM EDT documented as of this encounter Last Filed Vital Signs Vital Sign Reading Time Taken Comments Blood Pressure 138/67 05/19/2012 8:44 AM EDT Pulse 60 05/19/2012 8:44 AM EDT Temperature 36.6 ??C (97.8 ??F) 05/19/2012 8:44 AM EDT Respiratory Rate - - Oxygen Saturation 98% 05/19/2012 8:44 AM EDT Inhaled Oxygen Concentration - - Weight 103.9 kg (229 lb) 05/19/2012 8:44 AM EDT Height 181 cm (5' 11.26) 05/19/2012 8:44 AM EDT Body Mass Index 31.71 05/19/2012 8:44 AM EDT documented in this encounter Progress Notes Nora Quiroz MSW - 05/19/2012 11:28 AM EDT SW Note: Met with pt and his in clinic as he continues to work toward listing for a pancreas transplant. Pt was recently promoted at work and continues to have good support from his employer. Pt'myrafe also has good support from her employer who recognizes she will need several weeks off at the time of transplant. The couple continues to have good support from family and friends. Pt admits to some anxiety related to his diabetic unawareness as he has 3 significant events which resulted in calling 911. He has problem solved in an attempt of avoiding problems at night by checkinghis blood sugars once or twice a night. Pt admitted to some anxiety related to these events as well. SW discussed some of the emotional struggles pts face post transplant as well. Financially, the family is maintaining. They are not able to save a lot but they are not falling behind. There do not appear to be any concerns related to affording medication however this will be discussed further with Donna Manzano. Pt and his appear to have a clear understanding of the transplant process and both have the ability to make an informed decision. They deny significant concerns related to transplant; they were encouraged to contact the medical team with questions. There are no significant psychosocial barriers to transplant at this time. SW will remain available. Nora Quiroz LCSW Mary Simpson - 05/19/2012 10:51 AM EDT Richard Aracelis was seen by the transplant team today for his transplant evaluation review, patient is inactive on the pancreas transplant wait list. Patient is blood type O, PRA is 0%. As of 05/18/12, patient has 90 days on the [facility] wait list. Dialysis Information Not on HD Unit: Access: Dry Weight: Dialysis Issues: Medical Issues Since Last Transplant Evaluation: No changes in health status; multiple EMT calls to his home for low BS with one grand mal seizure, did not need to be admitted, seizure was d/t blood sugar of 31, seen by Una Lassiter NP, after this and is working on insulin pump adjustments and doingf/up by email with her, results are downloaded and sent to her and Una will f/up, issue was administering sliding scale insulin combined with his gastroparesis Status of Evaluation: CXR: done 01/29/12 EKG: Transplant Labs: 01/21/12 PALLAVI: 03/15/[address] Araiza 03/30/12 Colonoscopy: Opthamology: just seen in 11/09 by [facility] in [place], [place]; pt reports no changes Dental:up to date, recently seen, no dental issues Date of last tissue typing: Living Donors: Patient Teaching: [facility] report reviewed SRTR data review Process of being called in for transplant Post transplant care including home care, home supplies needed, return visits to clinic, discharge meds Carrying pager Monthly PRA lab work Immunizations: will get flu shot this fall, pneumovax last Follow Up Items: Wilda Liu MD - 05/19/2012 9:58 AM EDT Transplant Nephrology Follow Up Richard Perezjamie [id number] 1965 TRANSPLANT HX: Pt here for evaluation of pancreas transplant. He has blood type O and PRA of 0%. MEDICAL HX: Patient Active Problem List Diagnoses Code ??? LBP radiating to right leg 724.2BU ??? Diabetes mellitus 250.00A ??? Stroke-like symptoms 781.99EN ??? Hypertension 401.9AJ ??? Edema 782.3 ??? Gastroparesis due to DM 250.60JD ??? Migraine 346.90A History of Present Illness: 46 y.o. male presented for evaluation of pancreas transplant. He has been having recurrent hypoglycemia episodes since many years and his insulin is being adjusted by endocrine. His last episode was 3days ago when he had fsg of 48 but without any symptoms. He is currently on insulin pump. He otherwise feels well and has good exercise capacity. ROS: Denies fevers, chills, nausea, vomiting, diarrhea, abd pain, chest pain, sob. Medications: Current outpatient prescriptions ordered prior to encounter Medication Sig Dispense Refill ??? pantoprazole (PROTONIX) [...] mg by mouth 2 times daily. ??? DISCONTD: valACYclovir (VALTREX) 500 mg tablet Take 500 mg by mouth as needed. ??? trimethobenzamide (TIGAN) 300 mg capsule Take [...] mg by mouth 2 times daily. ??? Graff-3 Fatty Acids-Vitamin E (FISH OIL) 1,000 mg [...] mg suppository 25 MG = 1 Suppository(s), [place], Once daily,PRN Allergies / ADRs: Allergies Allergen Reactions ??? Simvastatin ??? Nexium (Esomeprazole Magnesium) Diarrhea Any acid reflux medication causes severe diarrhea ??? Prilosec (Omeprazole Magnesium) Diarrhea PHYSICAL EXAM: Filed Vitals: 05/19/12 0844 BP: 138/67 Pulse: 60 Temp: 36.6 ??C (97.8 ??F) Appearance - Alert, Comfortable. Skin - No exanthem. HEENT - Mucous membranes moist. Chest: Lungs clear to ausculatation w/o wheezes/ rhonchi/ crackles. Heart - S1 and S2 clear w/o murmur, gallop, or rub. JVP not elevated. Abd - Soft. + BS. No bruit. Non tender. No organomegaly. Ext - Warm. No cyanosis. trace dependent edema. Labs: No recent labs Impression/ Plan: We believe he is a very deserving candidate and one that would greatly benefit from pancreas transplantation due to frequency of hypoglycemic episodes. His CABLE SPLICING TECHNICIAN issues have been resolved and is well controlled on current medication regimen. As per Dr. Martinez there is no problem going ahead with the transplant from neurological standpoint. We will activate him on the transplant list by the end of this week and send a letter to patient regarding this. I examined the patient, reviewed all of the above findings and assessment of Dr. Liu and formulatedthe recommendations which accurately reflect mine. documented in this encounter Plan of Treatment Not on filedocumented as of this encounter Visit Diagnoses Diagnosis Diabetes mellitus - Primary Type II or unspecified type diabetes bria litus without mention of complication, not stated as uncontrolled documented in this encounter Care Teams Accessories Repairer Relationship Specialty Start Date End Date Anna Mullen MD PCP - General 12/03/10 [address] [place] [address] documented as of this encounter
--- OUTSIDE RECORDS SUMMARY | 2022-03-13 18:35 | XMS_ITS | Encounter Summary ---
:1965 Author Organization [facility] [place] [address] Care Team Providers Name Role Phone Anna Mullen MD Primary Care Provider Encounter Details Date Type Department Care Team Description 04/13/2012 Abstract Neurology at [facility] [place] Hillary Duenas, [place] [address] Social History Tobacco Use Types Packs/Day [...] on filedocumented in this encounter Care Teams Railroad Track Mechanic Relationship Specialty Start Date End Date Anna Mullen MD PCP - General 12/03/10 [address] [place], [place] [id number] documented as of this encounter
--- OUTSIDE RECORDS SUMMARY | 2022-03-13 18:35 | XMS_ITS | Encounter Summary ---
:1965 Author Organization [facility] [place] [address] Care Team Providers Name Role Phone Anna Mullen MD Primary Care Provider Encounter Details Date Type Department Care Team Description 11/15/2012 Follow-Up Solid [place] [address] Social History Tobacco Use Types Packs/Day [...] on filedocumented in this encounter Care Teams Electrical Maintenance Engineer Relationship Specialty Start Date End Date Anna Mullen MD PCP - General 12/03/10 [address] [place], [place] [address] documented as of this encounter
--- OUTSIDE RECORDS SUMMARY | 2022-03-13 18:35 | XMS_ITS | Encounter Summary ---
:1965 Author Organization [facility] [place] [address] Care Team Providers Name Role Phone Anna Mullen MD Primary Care Provider Encounter Details Date Type Department Care Team Description 05/11/2012 Hospital Encounter Laboratory [place], DM type 1 (diabetes [facility] Bruce Parra mellitus, type 1) [place], [place] C[place] [address] ENDOCRINOLOGY [phone] [place] [id number] Social History Tobacco Use Types Packs/Day Years [...] Sig Dispensed Refills Start Date End Date polyethylene glycol Take 17 g by mouth [...] Dx V42.83 Diabetic Supplies, Fax form to [facility] 100 each 12 09/02/2013 0 [facility] for testing 4 supplies 10 times [...] 70 tablet 6 1 mg tablet 20mg [id number]; 3 Then 15mg x7days; Then 10mg x7days; [...] by mouth as 0 tablet needed. 4 valACYclovir (VALTREX) Take 500 mg by mouth 0 500 mg tablet as needed. 2 magnesium oxide (MAG-OX) Take by mouth 4 [...] mg tablet times daily (with 4 meals). ibuprofen (ADVIL;MOTRIN) Take 1 tablet by 270 tablet 3 10/16 800 mg tablet mouth every 8 hours 3 as needed for Pain. levothyroxine (SYNTHROID) Take 1 tablet by 90 tablet 4 10/01 175 mcg tablet mouth daily. 3 losartan (COZAAR) 100 mg Take by mouth daily. 0 tablet 3 pravastatin (PRAVACHOL) Take 40 mg by mouth 0 40 mg tablet daily. 4 traMADol (ULTRAM) 50 mg Take 100 mg by mouth 0 tablet 2 times daily. 4 [place]-3 Fatty Take 5,000 mg by 0 01/08/201109/06 Acids-Vitamin E (FISH mouth daily. 4 OIL) 1,000 mg Cap Acetone, Urine, Test by [facility].(Non-Drug; 0 (ACETONE, URINE, TEST) Combo Route) route. [...] Name Priority Date/Time Associated Diagnosis Comme nts HEMOGLOBIN A1C Routine 05/11/2012 7:42 AM DM type 1 (diabetes Results for this EDT mellitus, type 1) procedure are in the results section . documented in this encounter Results (ABNORMAL) Hemoglobin A1c (05/11/2012 7:42 AM EDT) Analysis Performed At [facility] Time Signature Hemoglobin A1C 7.5 (H) 4.3 - 6.1 CERNER % MILLENNIUM Est Avg Gluc 169 mg/dL [facility] Comment: eAG equivalents for HbA1c percentages: HbA1c(%) ?eAG(mg/dL) 6.0 ?126 6.5 ?140 7.0 ?154 7.5 ?169 8.0 ?183 8.5 ?197 9.0 ?212 9.5 ?226 10.0 ? 240 Limitations: The eAG calculation has not been validated on women, individuals below 18 years old and above 70 years old, and individuals with hemoglobinopathies. Additional resources are available on e ADA website: ??http://professional.diabetes.org/gluc osecalculator.aspx Reference: Edinson GRISSOM, Nathaniel J, Ari R, et al. ??Tr anslating the A1C assay into estimated average glucose values. ??Diabetes Care 2008:31(8):3563-5469. Specimen Anatomical Collection Method Collection Time Receive d Time (Source) Location / / Volume Laterality Blood specimen 05/11/2012 7:42 AM 012 7:45 (specimen) EDT AM EDT Resulting Agency Comment Spec In Lab Divya Coles MD CHEMISTRY ORDERABLES Performing Organization Address City/State/ZIP Code Phon e Number [address] [facility] documented in this encounter Visit Diagnoses Diagnosis DM type 1 (diabetes mellitus, type 1) Type I (juvenile type) diabetes mellitus without mention of complication, not stated as uncontrolled documented in this encounter Care Teams Vertical Boring Mill Operator Relationship Specialty Start Date End Date Anna Mullen MD PCP - General 12/03/10 [address] [place] [address] documented as of this encounter
--- OUTSIDE RECORDS SUMMARY | 2022-03-13 18:35 | XMS_ITS | Encounter Summary ---
:1965 Author Organization [facility] [place] [address] Care Team Providers Name Role Phone Anna Mullen MD Primary Care Provider Encounter Details Date Type Department Care Team Description 09/15/2012 Orders Only Endocrinology at [facility] Una Dexter, Pain of right lower [facility] [place] [address] [facility] [phone] [place] [facility] [place], [place] [address] Social History Tobacco Use Types [...] as of this encounter Visit Diagnoses Diagnosis Pain of right lower leg Pain in limb documented in this encounter Care Teams Sales Audit Clerk Relationship Specialty Start Date End Date Anna Mullen MD PCP - General 12/03/10 [address] [place] [address] documented as of this encounter
--- OUTSIDE RECORDS SUMMARY | 2022-03-13 18:36 | XMS_ITS | Encounter Summary ---
:1965 Author Organization [facility] [address] Care Team Providers Name Role Phone Anna Mullen MD Primary Care Provider Reason for Visit Reason Comments Follow-up Encounter Details Date Type Department Care Team Description 02/09/2012 Office Visit Endocrinology at [facility] Divya [place] DM type 1 (diabetes [facility] MD Arlyn mellitus, type 1) [facility] (Primary Dx) [place] [address] ENDOCRINOLOGY DEPT. [place], [place] [address] Social History Tobacco Use Types [...] Sign Reading Time Taken Comments Blood Pressure 117/75 02/09/2012 8:23 AM EDT Pulse 59 02/09/2012 8:23 AM EDT Temperature - - Respiratory Rate - - Oxygen Saturation - - Inhaled Oxygen Concentration - - Weight 105.5 kg (232 lb 9.6 oz) 02/09/2012 8:23 AM EDT Height 182.9 cm (6') 02/09/2012 8:23 AM EDT Body Mass Index 31.55 02/09/2012 8:23 AM EDT documented in this encounter Progress Notes Divya Coles MD - 02/08/2012 9:10 PM EDT PRIMARY CARE PROVIDER: Anna Mullen M.D. CC: Here for f/u of type 1 DM Dx: 1974 Last Hga1c 6.9%, 01/09 CURRENT INSULIN PUMP SETTINGS: Basal Rate: Midnight 1.5, 2 a.m. 1.35, 6 a.m. 1.9, 3 p.m. 1.8, 7 p.m. 1.7, 8 p.m. 2.6, and 11 p.m. 1.4 units per hour. (42) Sensitivity Factor: Midnight 30 and 6 p.m. 28. Carb Ratio: Midnight 11 and 4:30 p.m. 13. COMPLICATIONS: He is up-to-date with his dentist -09/11, due for eye doctor. Microalbumin less than 14, creatinine 1.0 in 10/2011. He has gastroparesis, but no peripheral neuropathy. 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 Has nonocclusive disease with slightly decreased ejection fraction of 52%. Lipids in 10/2011; total cholesterol 118, HDL 54, and LDL 58. DIABETIC HEALTH MAINTENANCE: Beta-Sigrid: Metoprolol 50 mg a day. Aspirin: 325 mg a day. ARB: Cozaar 100 mg a day. Statin: Pravastatin 40 mg a day. Flu Shot: 2010. Pneumovax: He will check with Dr. Mullen. It was not done here. He is a nonsmoker. TSH 4.17, on levothyroxine 162.5 mg a day. Since his last visit, Brant has continued to have a lot of hypoglycemia. The ambulance actually had to come, last week he was working outside with his daughter and became confused and disoriented. She called 911. It took glucagon, orange juice, and glucose gel to get his blood sugar up to 44. He has noticed that he goes low probably four or five days a week in the afternoon. It is usually when he is working. He is not using a temporary basal when he is active in the yard. He does have a glucose sensor, but it did not alarm that day. He had been 160 before and he had noticed a trending down. Since then, as soon as he notices a trending down, help will check his blood sugar. He is checking four or five times a day at least. Fastings are running 100 to 150, lunchtime about 80, and supper 90 to 120, bedtime about 160, does not like to go to bed lower than that, will have a low in the middle of the night. EXERCISE: He is active in his yard. DIET: His diet; for breakfast, toast, cereal, and a banana. Midmorning, cheese and crackers. For lunch, usually a big sandwich or a corn grinder. Snack in the afternoon, chips. Supper, meat, potato, and vegetables. Evening snack, fruit. 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 Otherwise, he is feeling well. Current outpatient prescriptions ordered prior to encounter Medication Sig Dispense Refill ??? citalopram (CELEXA) [...] Take 5 mg by mouth daily. ??? Magnesium Oxide 250 mg Tab Take by mouth 2 times daily. ??? carvedilol (COREG) 3.125 mg tablet Take 3.125 mg by mouth 2 times daily (with meals). ??? trimethobenzamide (TIGAN) 300 mg capsule Take 1 capsule by mouth 3 times daily for 90 days. 270 capsule 3 ??? pantoprazole (PROTONIX) 20 mg tablet Take 2 tablets by mouth daily for 90 days. 90 tablet 3 ??? ibuprofen (ADVIL;MOTRIN) 800 mg tablet Take [...] mg by mouth 2 times daily. ??? [place]-3 Fatty Acids-Vitamin E (FISH OIL) 1,000 mg Cap Take 5,000 mg by mouth daily. ??? Acetone, Urine, Test (ACETONE, URINE, TEST) Strp by [facility].(Non-Drug; Combo Route) route. ??? hydrOXYzine (VISTARIL) 25 [...] mg suppository 25 MG = 1 Suppository(s), [place], Once daily,PRN Allergies Allergen Reactions ??? Simvastatin ??? Nexium (Esomeprazole Magnesium) Diarrhea Any acid reflux medication causes severe diarrhea ??? Prilosec (Omeprazole Magnesium) Diarrhea Patient Active Problem List Diagnoses Code ??? LBP radiating to right leg 724.2BU ??? Diabetes mellitus 250.00A ??? Stroke-like symptoms 781.99EN ??? 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 Hypertension 401.9AJ ??? Edema 782.3 ??? Gastroparesis due to DM 250.60JD ??? Migraine 346.90A PHYSICAL EXAMINATION: On physical exam, blood pressure 117/75, pulse 59, weight 232 pounds, and height 6 feet. In general, he looks well. His skin is smooth, warm, and dry. No ulcerations. Extremities showed 1 to 2+ edema, little worse on the right than the left. He says this has been much worse since he has been started on amlodipine. On neurologic exam, decreased light touch sensation in the left toes. Psych: Mood, affect, and behavior are appropriate. IMPRESSION: Diabetes. Blood sugars are low when he is active. We will have him contact [employer] or a conservation educator to learn how to use a temporary basal. For now, he will just spend when he is active and monitor his blood sugars. He may try basal rate about 50% and then adjust from their if he goes too high. He can use 75% of his basal rate or if he still goes low, he can go to 25% of his basal rate. His lunchtime sugars are a little low in general, so we will change his basal rate lower than for that time a day, so basal rates will be midnight 1.5, 2 a.m. 1.35, 6 a.m. 1.9, 11 a.m. 1.8, 7 p.m. 1.7, 8 p.m. 2.6, and 11 p.m. 1.4 units per hour for the total of 41.6; and sensitivity factor midnight 30, 6 p.m. 28, carbohydrate ratio 11 at midnight and 13 at 4:30 p.m. PLAN: 1. Adjust insulin as noted above. 2. Follow up in three months with Una Lassiter with hemoglobin A1c in the quick draw lab. documented in this encounter Plan of Treatment Not on filedocumented as of this encounter Results (ABNORMAL) Hemoglobin A1c (05/11/2012 7:42 AM EDT) Analysis Performed At [facility] Time Signature Hemoglobin A1C 7.5 (H) 4.3 - 6.1 CERNER % MILLENNIUM Est Avg Gluc 169 mg/dL [facility] Comment: eAG equivalents for HbA1c percentages: HbA1c(%) ?eAG(mg/dL) 6.0 ?126 6.5 ?140 7.0 ?154 7.5 ?169 8.0 ?183 8.5 ?197 9.0 ?212 9.5 ?226 10.0 ? 240 Limitations: The eAG calculation has not been validated on women, individuals below 18 years old and above 70 years old, and individuals with hemoglobinopathies. Additional resources are available on [facility] ADA website: ??http://professional.diabetes.org/gluc osecalculator.aspx Reference: Edinson GRISSOM, Nathaniel J, Ari R, et al. ??Tr anslating the A1C assay into estimated average glucose values. ??Diabetes Care 2008:31(8):8432-3329. Specimen Anatomical Collection Method Collection Time Receive d Time (Source) Location / / Volume Laterality Blood specimen 05/11/2012 7:42 AM 012 7:45 (specimen) EDT AM EDT Resulting Agency Comment Spec In Lab Divya Coles MD CHEMISTRY ORDERABLES Performing Organization Address City/State/[place] [address] [facility] documented in this encounter Visit Diagnoses Diagnosis DM type 1 (diabetes mellitus, type 1) - Primary Type I (juvenile type) diabetes mellitus without mention of complication, not stated as uncontrolled documented in this encounter Care Teams Supervisor Of Officials Relationship Specialty Start Date End Date Anna Mullen MD PCP - General 12/03/10 [address] [place] [address] documented as of this encounter
--- OUTSIDE RECORDS SUMMARY | 2022-03-13 18:36 | XMS_ITS | Encounter Summary ---
:1965 Author Organization [facility] [address] Care Team Providers Name Role Phone Anna Mullen MD Primary Care Provider Encounter Details Date Type Department Care Team Description 12/31/2011 Anesthesia Event Gastroenterology at [facility] Jameel Harding MD [facility] [place] [address] [facility] Raghav Faye MD [facility] [place] [address] [place] [address] Anesthesia Record Procedure Summary Procedure Name Responsible Anesthesia Start Anesthesia Stop Time Anesthesiologist Time UPPER GI ENDOSCOPY Jameel Harding MD 12/31/11 0841 12/31/11 0906 (N/A Trunk) Events Date Time Event Comment 12/31/2011 0838 0841 Start 0906 Stop No medications on file. Agents No agents on file. Blood No blood administrations on file. Lines, Drains, and Airways Type Details Placement Removal PIV 07/21/11; 0639; 08/28/13; 07/21/11 0639 by Saurabh shah, 08/28/13 1023 by [place], 1023 MIGUELITO Larson RN PIV 07/21/11; 0645; 08/28/13; 07/21/11 0645 by Saurabh shah, 08/28/13 1023 by [facility], 1023 MIGUELITO Larson RN PIV 12/31/11; 0818; 08/28/13; 12/31/11 0818 by Geoff shah, 08/28/13 1023 by [facility], 1023 MIGUELITO Segundo RN documented in this encounter Social History Tobacco Use Types Packs/Day Years Used Date Never Smoker Smokeless Tobacco: Never Used Alcohol Use Standard Drinks/Week Comments No 0 (1 standard drink = 0.6 oz pure alcoho l) Sex Assigned at Date Recorded Male 05/29/2021 11:28 PM EDT documented as of this encounter OR Notes Anesthesia Postprocedure Evaluation - Jameel Harding MD - 12/31/2011 9:11 AM EDT Patient: Richard Hsu Procedure(s) Performed: Procedure(s): UPPER GI ENDOSCOPY UPPER GASTROINTESTINAL ENDOSCOPY,WITH BIOPSY SINGLE OR MULTIPLE Patient location: PACU Post-op pain: Adequate analgesia Post-op nausea: no nausea or vomiting Last Vitals: Filed Vitals: 12/31/11 0755 BP: 119/69 Pulse: 58 Temp: 36.7 ??C (98.1 ??F) Resp: 16 Post-op cardiovascular and respiratory status: is stable Level of consciousness: awake Complications: no apparent complications Fluid Status: normal Anesthesia Preprocedure Evaluation - Raghav Callejas MD - 12/30/2011 8:19 PM EDT Anesthesia Evaluation Patient summary reviewed Airway Mallampati: I TM distance: >3 FB Neck ROM: full Dental Pulmonary - normal exam (-) asthma and shortness of breath Cardiovascular - normal exam Exercise tolerance: good (+) hypertension well controlled, angina, ROS comment: Echo 2011 - normal Stress test - normal, 11 METS but +CP, QUIÑONES, no ST changes. Can walk up 3 flights stairs then gets QUIÑONES. 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 He has an appt to see Cardiology here in about a week. Neuro/Psych (+) headaches, psychiatric history Comments: Depression GI/Hepatic/Renal (+) GERD poorly controlled, Endo/Other (+) Type I DM using insulin, hypothyroidism, Abdominal (-) obese Anesthesia Plan ASA 3 MAC with intravenous induction 46 yo obese man with diabetic gastroparesis here for UGI. Anesthetic plan and risks discussed with patient. Plan discussed with attending. documented in this encounter Miscellaneous Notes Addendum Note - Venice Garber - 01/01/2012 10:07 AM EDT Addendum created 01/01/12 1007 by Venice Garber Modules edited:Anesthesia Events, Anesthesia Responsible Staff documented in this encounter Plan of Treatment Not on filedocumented as of this encounter Visit Diagnoses Not on filedocumented in this encounter Care Teams Duck Bill Operator Relationship Specialty Start Date End Date Anna Mullen MD PCP - General 12/03/10 [address] [place] [address] documented as of this encounter
--- OUTSIDE RECORDS SUMMARY | 2022-03-13 18:36 | XMS_ITS | Encounter Summary ---
:1965 Author Organization [facility] [address] Care Team Providers Name Role Phone Anna Mullen MD Primary Care Provider Encounter Details Date Type Department Care Team Description 01/30/2012 External Results [place] [facility] [place] Vines MD [address] [place] [address] Dr HUSSEIN HANLEY [address] [place] [phone] [place] [address] [phone] (Wo rk) Social History Tobacco Use Types [...] Priority Date/Time Associated Diagnosis Comme nts CT SCAN (SCAN) Routine 06/19/2011 CT SCAN (SCAN) Routine 04/27/2010 documented in this encounter Results Scan Doc: CT Scan (06/19/2011) Anatomical Region Laterality Modality Other Narrative This result has an attachment that is no t available. Dung Choi MD [facility] M[facility] SCAN EXT ORDR/RSLT Scan Doc: CT Scan (04/27/2010) Anatomical Region Laterality Modality Other Narrative This result has an attachment that is no t available. Philippe Vines MD [facility] MGR SCAN EXT ORDR/RSLT documented in this encounter Visit Diagnoses Not on filedocumented in this encounter Care Teams Artillery Specialist Relationship Specialty Start Date End Date Anna Mullen MD PCP - General 12/03/10 [address] [place] [address] documented as of this encounter
--- OUTSIDE RECORDS SUMMARY | 2022-03-13 18:36 | XMS_ITS | Encounter Summary ---
:1965 Author Organization [facility] [place] [address] Care Team Providers Name Role Phone Anna Mullen MD Primary Care Provider Encounter Details Date Type Department Care Team Description 01/21/2012 Office Visit Vascular Surgery at [facility] Brianna Carlos, [place] [address] Social History Tobacco Use Types Packs/Day [...] Name Priority Date/Time Associated Diagnosis Comme nts CAROTID DUPLEX, Routine 01/21/2012 10:38 AM Dizziness Resul ts for this BILATERAL EDT procedure are i n the results section. documented in this encounter Results Cerebrovascular Duplex, Bilateral (01/21/2012 10:38 AM EDT) Component Value Ref Test Analysis Performed At [facility] Range Method Time Signature VB Text VASCUBASE Report Department: Vascular Surgery Lab Patient: [id number] (REESE HSU) CPT Code: 35734 ICD-9: 780.4 Referring Physician: ARAIZA, FANNIE JACKELIN Indication: ?? Dizziness ICD9 Diagnosis Code: 780.4 Findings: Right ICA Proximal ?PSV (cm/s): 66 ?EDV (cm/s): 25 ?Plaque Structure: Echogenic ?Plaque Surface: Smooth ?%Stenosis: <15% ICA Distal ?PSV (cm/s): 82 ?EDV (cm/s): 32 CCA Distal ?PSV (cm/s): 87 ?EDV (cm/s): 26 ?%Stenosis: Minimal CCA Proximal ?PSV (cm/s): 105 ?EDV (cm/s): 15 External Carotid Artery ?PSV (cm/s): 115 ?EDV (cm/s): 23 ?%Stenosis: Minimal Vertebral ?PSV (cm/s): 36 ?EDV (cm/s): 9 Left ICA Proximal ?PSV (cm/s): 66 ?EDV (cm/s): 28 ?%Stenosis: <15% ICA Distal ?PSV (cm/s): 75 ?EDV (cm/s): 33 CCA Distal ?PSV (cm/s): 108 ?EDV (cm/s): 31 ?%Stenosis: Minimal CCA Proximal ?PSV (cm/s): 91 ?EDV (cm/s): 20 External Carotid Artery ?PSV (cm/s): 125 ?EDV (cm/s): 23 ?%Stenosis: Minimal Vertebral ?PSV (cm/s): 52 ?EDV (cm/s): 19 Interpretation: RIGHT: There is minimal smooth plaque in the bifurcation/pro ximal internal carotid artery causing <15% stenosis whe n compared to the more distal internal carotid artery. The bifurcation level is in the mid neck. LEFT: There is very minimal smooth plaque in the proximal in ternal carotid artery causing no stenosis when compared to the more d istal internal carotid artery. The bifurcation level is in the mid neck. Vertebral Artery Data: Antegrade blood flow with normal Dopp ler waveforms. However, RIGHT vertebral artery has lower veloci ties and is considerably more resistant than that of the LEFT. Accuracy Data: The following statistics are based on comparisons performe d at [facility] between noninvasive carotid artery d uplex data and arteriographic evaluation of the same patients from [id number]. Q / A Sens. Spec. PPV NPV Accuracy Carotid 93% 98% 97% 95% 96% Signed by ROHINI TINAJERO on 2012-01-23 12:37:25 PM VB Text End of Report VASCUBASE Report Specimen (Source) Anatomical Collection Method Collection Time Re ceived Time Location / / Volume Laterality 01/21/2012 10:38 AM EDT Fannie Araiza MD VASCULAR ORDERABLES Performing Organization Address City/State/ZIP Code Phon e Number V[facility]CU[facility] documented in this encounter Visit Diagnoses Diagnosis Dizziness Dizziness and giddiness documented in this encounter Care Teams Aviation Safety Inspector Relationship Specialty Start Date End Date Anna Mullen MD PCP - General 12/03/10 [address] [place] [address] documented as of this encounter
--- OUTSIDE RECORDS SUMMARY | 2022-03-13 18:36 | XMS_ITS | Encounter Summary ---
:1965 Author Organization [facility] [place] [address] Care Team Providers Name Role Phone Anna Mullen MD Primary Care Provider Encounter Details Date Type Department Care Team Description 11/14/2011 Orders Only [place] [facility] [place] Geoffrey Martinez MD [facility] [place] [address] NEUROLOGY DEPT. [phone] [place], [place] [address] (Wo rk) Social History Tobacco Use Types Packs/Day Years Used Date Never Smoker Smokeless Tobacco: Never Used Alcohol Use Standard Drinks/Week Comments Not Asked 0 (1 standard drink = 0.6 oz pure alcoho l) Sex Assigned at Date Recorded Male 05/29/2021 11:28 PM EDT documented as of this encounter Plan of Treatment Not on filedocumented as of this encounter Procedures Procedure Name Priority Date/Time Associated Diagnosis Comme nts FILM LIBRARY Routine 11/14/2011 10:41 AM Results for this STORAGE ONLY MR EDT procedure ar e in HEAD the results section. documented in this encounter Results FILM LIBRARY- STORAGE ONLY MR HEAD (11/14/2011 10:41 AM EDT) Specimen (Source) Anatomical Collection Method Collection Time Re ceived Time Location / / Volume Laterality 11/14/2011 10:41 AM EDT Narrative [facility] - 02/24/2014 1:34 AM EDT This is a non-reportable exam. Procedure Note ShariRylan - 02/24/2014Formatting of t his note might be different from the original. This is a non-reportable exam. Geoffrey Martinez MD IM FILM LIBRARY ORDERABLES Performing Organization Address City/State/ZIP Code Phon e Number [facility] [address] [facility] [place] [address] documented in this encounter Visit Diagnoses Not on filedocumented in this encounter Care Teams Window Shade Cutter And Mounter Relationship Specialty Start Date End Date Anna Mullen MD PCP - General 12/03/10 [address] [place] [address] documented as of this encounter
--- OUTSIDE RECORDS SUMMARY | 2022-03-13 18:36 | XMS_ITS | Encounter Summary ---
:1965 Author Organization [facility] Address [place] [id number] Care Team Providers Name Role Phone Anna Mullen MD Primary Care Provider Encounter Details Date Type Department Care Team Description 03/15/2012 Surgery Non-Invasive PalacRichard TRANSESOPHA GEGEORGINA Cardiology Lab Tiffani MORENO ECHOCARDIOGRAM (WRVU 2.55) [facility] CARDIOLOGY DE PT. [place] [id number] Social History Tobacco Use Types Packs/Day Years [...] Reading Time Taken Comments Blood Pressure 122/73 03/15/2012 9:20 AM EDT Pulse 56 03/15/2012 9:20 AM EDT Temperature 36.2 ??C (97.2 ??F) 03/15/2012 7:55 AM EDT Respiratory Rate 18 03/15/2012 9:20 AM EDT Oxygen Saturation 99% 03/15/2012 9:20 AM EDT Inhaled Oxygen Concentration - - Weight 100.7 kg (222 lb) 03/15/2012 7:55 AM EDT Height 182.9 cm (6') 03/15/2012 7:55 AM EDT Body Mass Index 30.11 03/15/2012 7:55 AM EDT documented in this encounter Discharge Instructions Discharge InstructionsAmy Wilcox RN - 03/15/2012 10:38 AM EDT A sore throat is normal. Please call for fever, difficulty swallowing. 1. You may have received medication before and/or during your procedure, which affects judgment and reaction time. 2. Do not drive, operate machinery, drink alchololic beverages, or make important decisions for 24 hours. 3. Be careful on stairs, as you may be unsteady on your feet. 4. You may eat a regular diet as tolerated. 5. Do not smoke if you are alone. 6. IV site- slight redness or tenderness is normal, you can use warm compresses. If tenderness and redness increases or foul drainage occours, please contact your M.D. documented in this encounter Medications at Time of Discharge Medication Sig Dispensed Refills Start Date End Date polyethylene glycol Take 17 g by mouth 14 each 0 09/02/19 14 10/02/2013 (MIRALAX) 17 gram packet daily as needed for 30 days. Magnesium Gluconate 27 mg Take 1 tablet by 90 tablet 10/201309/02/2013 (500 mg) Tab mouth 3 times daily. acetaminophen (TYLENOL) Take 2 tablets by 30 tablet 0 09/0205/22/2020 325 mg tablet mouth every 4 hours as needed (Pain, Fever. if oral temperature greater than 38.5 Centigrade). HYDROmorphone (DILAUDID) 2 Take 1-2 tablets 70 tablet 0 10/201309/09/2013 mg tablet by mouth every 3 hours as needed for Pain. sulfamethoxazole-trimethop Take 1 tablet by 13 tablet 5 10/201309/06/2013 rim (BACTRIM DS) 800-160 mouth three times mg per tablet a week for 30 days. potassium phosphate, Take 1 tablet by 90 tablet 6 4 09/06/2013 monobasic, (K-PHOS) 500 mg mouth 4 times tablet daily. CELLCEPT 250 mg capsule Take 2 capsules by 180 capsule 6 10/201309/06/2013 mouth 2 times daily. S/P Pancreas Transplant 08/28/2013 Dx V42.83 Diabetic Supplies, Fax form to [facility] 100 each 12 09/02/2013 0 05/10/2014 [facility] [place] testing supplies 10 times per day PROGRAF 1 mg capsule Take 2 capsules by 120 capsule 6 201309/06/2013 mouth 2 times daily. S/P Pancreas transplant V42.83 potassium phosphate, Take 1 tablet by 90 tablet 6 4 09/02/2013 monobasic, (K-PHOS) 500 mg mouth 3 times tablet daily. sulfamethoxazole-trimethop Take 1 tablet by 30 tablet 6 09/02/2013 rim (BACTRIM;SEPTRA) mouth daily. 400-80 mg per tablet valGANCiclovir (VALCYTE) Take 2 tablets by 60 tablet 6 08/0209/06/2013 450 mg tablet mouth 2 times daily. S/P Pancreas Transplant 08/28/2013 Dx V42.83 predniSONE (DELTASONE) 5 Take by mouth 70 tablet 6 08/29/20 13 08/29/2013 mg tablet daily; 20mg [id number]; Then 15mg x7days; Then 10mg x7days; Then 5mg x7days S/P Pancreas Transplant 08/28/2013 Dx V42.83 PROGRAF 1 mg capsule Take 2 capsules by 60 capsule 6 013 09/06/2013 mouth 2 times daily. S/P Pancreas Transplant 08/28/2013 Dx V42.83 CELLCEPT 250 mg capsule Take 3 capsules by 180 capsule 6 09/02/2013 mouth 2 times daily. S/P Pancreas Transplant 08/28/2013 Dx V42.83 DILTiazem (DILACOR XR) 120 Take 1 capsule by 30 capsule 6 09/06/2013 mg 24 hr capsule mouth daily. fluconazole (DIFLUCAN) 200 Take 1 tablet by 10 tablet 6 2013 mg tablet mouth daily. potassium phosphate, Take 1 tablet by 90 tablet 6 3 09/02/2013 monobasic, (K-PHOS) 500 mg mouth 3 times tablet daily. Magnesium Gluconate 27 mg Take 1 tablet by 90 tablet 6 08/0209/06/2013 (500 mg) Tab mouth 3 times daily. pantoprazole (PROTONIX) 40 Take 1 tablet by 90 tablet 3 09/06/2013 mg tablet mouth daily. pantoprazole (PROTONIX) 40 Take 40 mg by 0 05/11/2012 mg tablet mouth 2 times daily. trimethobenzamide (TIGAN) Take by mouth 2 0 09/02/2013 300 mg capsule times daily. glucagon, human Inject 1 mL as 2 each 02/09/201205/11 recombinant, 1 mg directed as injection needed. citalopram (CELEXA) 20 mg Take 40 mg by 0 08/06/2016 tablet mouth daily. divalproex (DEPAKOTE ER) Take 1 tablet by 30 tablet 11 01/2004/22/2012 250 mg 24 hr tablet mouth daily. Call to adjust in 1 week. naproxen sodium (ANAPROX) Take 1 tablet by 60 tablet 5 12/3010/18/2013 550 mg tablet mouth 2 times daily as needed (for breakthrough headaches). verapamil (CALAN-SR) 240 Take by mouth 2 0 09/02/2013 mg CR tablet times daily. amlodipine (NORVASC) 5 mg Take 5 mg by mouth 0 12/22/2012 tablet daily. Magnesium Oxide 250 mg Tab Take by mouth 2 0 03/24/2012 times daily. carvedilol (COREG) 3.125 Take by mouth 2 0 09/02/2013 mg tablet times daily (with meals). ibuprofen (ADVIL;MOTRIN) Take 1 tablet by 270 tablet 3 10/1610/15/2012 800 mg tablet mouth every 8 hours as needed for Pain. levothyroxine (SYNTHROID) Take 1 tablet by 90 tablet 4 10/0102/07/2013 175 mcg tablet mouth daily. losartan (COZAAR) 100 mg Take by mouth 0 08/10/2013 tablet daily. pravastatin (PRAVACHOL) 40 Take 40 mg by 0 09/02/2013 mg tablet mouth daily. traMADol (ULTRAM) 50 mg Take 100 mg by 0 10/18/2013 tablet mouth 2 times daily. [place]-3 Fatty Take 5,000 mg by 0 01/08/201109/06 Acids-Vitamin E (FISH OIL) mouth daily. 1,000 mg Cap Acetone, Urine, Test by [facility]Non-Drug; 0 09/02/2013 (ACETONE, URINE, TEST) Combo Route) Strp route. hydrOXYzine (VISTARIL) 25 Take by mouth 2 0 12/2410/28/2013 mg capsule times daily as needed. hydrochlorothiazide Take 25 mg by 0 (HYDRODIURIL) 25 mg tablet mouth daily. insulin aspart (NOVOLOG) Inject 0 05/11/2012 100 unit/mL injection subcutaneously. 100 units/Ml solution. Approximally 80 units subcutaneous by pump. CALCIUM CARBONATE (CALCIUM Take 1,200 mg by 0 09/06/2013 600 ORAL) mouth daily. GLUCOSAMINE HCL/CHONDRO ROGERS Take 3 tablets by 0 09/02/2013 A (GLUCOSAMINE-CHONDROITIN mouth daily. ORAL) multivitamin (THERAGRAN) Take 1 tablet by 0 09/06/2013 tablet mouth daily. aspirin 325 mg tablet Take 325 mg by 0 05/31/2014 mouth daily. documented as of this encounter Progress Notes Amy Wilcox RN - 03/15/2012 10:31 AM EDT 1030 + gag reflex-given po fluids documented in this encounter H&P Notes Naomi Oleary - 03/15/2012 8:37 AM EDT Richard Hsu [id number] 03/15/2012 46 y.o. 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 Diabetes mellitus Priority: High ??? Gastroparesis due to DM Priority: High ??? Stroke-like symptoms ??? Papillary fibroelastoma of heart ??? Hypertension ??? Edema ??? Migraine ??? LBP radiating to right leg HPI: This 46 y.o. 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 He presents for followup PALLAVI for his fibroelastoma. Prior PALLAVI last year under MAC went smoothly, and recent EGD with no esophageal findings, only mild gastritis. No history of esophageal disease, sleep apnea. Did have exacerbation of his chronic tardivedyskinesia (from reglan) after the procedure last time, resolved spontaneously. Last ate 10pm last night, still has insulin pump on, currently set at 25% less than his usual basal rate, currently rate 1.9 units per hour til 11am, then 1.7 units per hour. ROS/PMHx/Fam Hx/Soc Hx: Reviewed, see outpatient note. Chronic intermittent CP, sharp, left or right, not usually exertional, can be associated with eitherSOb or diaphoresis, atypical at best No orthopnea, mild LE edema (likely from amlodipine treatment started recently) No respiratory, bleeding sx. Mild Has hypoglycemia 1-3x/month, hx of hypoglycemic seizures Physical Exam: Vital signs: BP 111/62 Pulse 52 Temp(Src) 36.2 ??C (97.2 ??F) (Oral) Resp 14 Ht 182.9 cm (6') Wt 100.699 kg (222 lb) BMI 30.11 kg/m2 SpO2 98% Physical Exam NAD, AAOX3 MMM, clear OP, mallampati class 2 S1S2 RRR no m/r/g CTAB Soft, NT/ND, LLQ injection site from SC insulin pump is c/d/i Trace pitting edema b/l LEs 2+ DP/PT b/l Lab (Last 24 Hours): Recent Results (from the past 24 hour(s)) POCT GLUCOSE LAB USE ONLY Component Value Range ??? POC Glucose 286 (*) 60 - 199 (mg/dL) A/P 46 yo M w/ papillary fibroelastoma for elective PALLAVI -able to undergo PALLAVI w/ MAC without increased risk -please continue SC insulin pump at current settings, will need perioperative blood glucose checks -patient consented for procedure, he and his are agreeable NAOMI OLEARY MD Page [phone] documented in this encounter Miscellaneous Notes Miscellaneous - Provider, Scanning - 03/16/2012 4:15 AM EDT Miscellaneous - Provider, Scanning - 03/16/2012 3:43 AM EDT Miscellaneous - Provider, Scanning - 03/15/2012 10:05 AM EDT documented in this encounter Plan of Treatment Not on filedocumented as of this encounter Procedures Procedure Name Priority Date/Time Associated Diagnosis Comme nts POCT GLUCOSE Routine 03/15/2012 11:23 AM Results for this EDT procedure are i n the results section . POCT GLUCOSE Routine 03/15/2012 10:34 AM Results for this EDT procedure are i n the results section . POCT GLUCOSE Routine 03/15/2012 8:11 AM Results f or this EDT procedure are i n the results section . documented in this encounter Results (ABNORMAL) POCT GLUCOSE LAB USE ONLY (03/15/2012 11:23 AM EDT) athologist Signature POC Glucose 294 (H) 60 - 199 CERNER mg/dL MILLENNIUM Comment: Supplemental ranges: <110 mg/dL before meals <200 mg/dL all other times of the day Specimen Anatomical Collection Method Collection Time Receive d Time (Source) Location / / Volume Laterality Blood specimen 03/15/2012 11:23 2 (specimen) AM EDT 11:23 AM EDT Richard Young MD POINT OF CARE TEST ORDERABLE S Performing Organization Address City/State/[place] [address] CERNER MILLENNIUM (ABNORMAL) POCT GLUCOSE LAB USE ONLY (03/15/2012 10:34 AM EDT) athologist Signature POC Glucose 256 (H) 60 - 199 CERNER mg/dL ENNIUM Comment: Supplemental ranges: <110 mg/dL before meals <200 mg/dL all other times of the day Specimen Anatomical Collection Method Collection Time Receive d Time (Source) Location / / Volume Laterality Blood specimen 03/15/2012 10:34 2 (specimen) AM EDT 10:34 AM EDT Richard Young MD POINT OF CARE TEST ORDERABLE S Performing Organization Address City/State/[place] [address] CERNER MILLENNIUM (ABNORMAL) POCT GLUCOSE LAB USE ONLY (03/15/2012 8:11 AM EDT) P athologist Signature POC Glucose 286 (H) 60 - 199 CERNER mg/dL [place] Comment: Supplemental ranges: <110 mg/dL before meals <200 mg/dL all other times of the day Specimen Anatomical Collection Method Collection Time Receive d Time (Source) Location / / Volume Laterality Blood specimen 03/15/2012 8:11 AM 012 8:11 (specimen) EDT AM EDT Richard Young MD POINT OF CARE TEST ORDERABLE S Performing Organization Address City/State/[place] [address] CERNER MILLENNIUM documented in this encounter Visit Diagnoses Not on filedocumented in this encounter Administered Medications Inactive Administered Medications - up to 3 most recent administrations Medication Order MAR Action Action Date Dose Rate Site fentaNYL 50mcg/mL injection Given 03/15/2012 9:36 AM EDT 25 mcg 25 mcg, Intravenous, EVERY 1 HOUR PRN, Starting on Thu03/15/12 at 0953, Until Thu03/15/12 at 1337, Pain, Echo Lab (Intra-Procedure), Routine Given 03/15/2012 9:25 AM EDT 25 mcg midazolam (VERSED) injection 3 mg Given 03/15/2012 9:30 AM EDT 1 mg 3 mg, Intravenous, ONCE, 1 dose, On Thu03/15/12 at 0930, Echo Lab (Intra-Procedure), Routine Given 03/15/2012 9:28 AM EDT 1 mg Given 03/15/2012 9:25 AM EDT 1 mg documented in this encounter Active and Recently Administered Medications Times are shown in EDT. Scheduled Medication Order 03/13/2012 03/14/2012 03/15/2012 midazolam (VERSED) injection 3 mg (COMPLETED) 09 (Given - Provider: Ni Anthony, RN)0928 (Given - Provider: Ni Anthony, MIGUELITO)0930 (Given - Provider: Ni Anthony, MIGUELITO) 3 mg, Intravenous, ONCE, 1 dose, Mon 02/28 02/09 at 0930, Echo Lab (Intra- Procedure), Routine PRN Medication Order 03/13/2012 03/14/2012 03/15/2012 fentaNYL 50mcg/mL injection (CANCELED) 924 (Given - Provider: Ni Anthony RN)0936 (Given - Provider: Ni Anthony RN) 25 mcg, Intravenous, EVERY 1 HOUR PRN, S tarting Thu03/15/12 at 0953, Until Thu03/15/12 at 1337, Pain, Echo Lab (Intra-Procedure), Routine documented in this encounter Care Teams Car Rental Service Attendant Relationship Specialty Start Date End Date Anna Mullen MD PCP - General 12/03/10 [address] [place] [address] documented as of this encounter
--- OUTSIDE RECORDS SUMMARY | 2022-03-13 18:36 | XMS_ITS | Encounter Summary ---
:1965 Author Organization [place] [address] Care Team Providers Name Role Phone Anna Mullen MD Primary Care Provider Reason for Visit Reason Onset Date Comments Medication Refill 10/16/2011 Encounter Details Date Type Department Care Team Description 10/16/2011 Refill Endocrinology at [facility] Divya Hermosillo MD [facility] [place] [address] ENDOCRINOLOGY DEPT. [phone] [place], [place] [address] (Wo rk) Social History Tobacco Use Types Packs/Day Years Used Date Never Smoker Smokeless Tobacco: Never Used Alcohol Use Standard Drinks/Week Comments Not Asked 0 (1 standard drink = 0.6 oz pure alcoho l) Sex Assigned at Date Recorded Male 05/29/2021 11:28 PM EDT documented as of this encounter Miscellaneous Notes Telephone Encounter - Sheila Landeros RN - 10/16/2011 1:55 PM EST This med was refilled on 10/10/[address] Wilkes. Patient called and he was unaware that this had been done. He will check with his pharmacy. 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
--- OUTSIDE RECORDS SUMMARY | 2022-03-13 18:36 | XMS_ITS | Encounter Summary ---
:1965 Author Organization [facility] [place] [address] Care Team Providers Name Role Phone Anna Mullen MD Primary Care Provider Encounter Details Date Type Department Care Team Description 03/15/2012 Hospital Encounter Non-Invasive CLINIC, DR FRYE Aortic valve [place] [address] Social History Tobacco Use Types Packs/Day [...] Take 1 tablet by 90 tablet 6 10/201309/02/2013 (500 mg) Tab mouth 3 times [...] Dx V42.83 Diabetic Supplies, Fax form to [facility] 100 each 09/02/2013 0 [facility] for [...] 08/29/20 13 08/29/2013 mg tablet daily; 20mg [id number]; Then 15mg x7days; Then 10mg x7days; Then [...] (ANAPROX) Take 1 tablet by 60 tablet 12/3010/18/2013 550 mg tablet mouth 2 times [...] 0 10/18/2013 tablet mouth 2 times daily. [place]-3 Fatty Take 5,000 mg by 0 01/08/201109/06 Acids-Vitamin E (FISH OIL) mouth daily. 1,000 mg Cap Acetone, Urine, Test by [facility].(Non-Drug; 0 09/02/2013 (ACETONE, URINE, TEST) Combo Route) [...] mouth daily. documented as of this encounter Plan of Treatment Not on filedocumented as of this encounter Procedures Procedure Name Priority Date/Time Associated Comments Diagnosis TRANSESOPHAGEAL Routine 03/15/2012 10:06 Aortic valve mass Res ults for this ECHOCARDIOGRAM (JUN) AM EDT procedu re are in the results section. documented in this encounter Results Transesophageal Echocardiogram (JUN) (03/15/2012 10:06 AM EDT) P athologist Signature EF 60 HEARTLAB SYSTEM Specimen (Source) Anatomical Location Collection Method / Collectio n Time Received Time / Laterality Volume 03/15/2012 Narrative HEARTLAB SYSTEM - 03/15/2012 1:39 PM EDT Procedure: ? Transesophageal Echocardiogram Patient: ? VAZQUEZ LEIGH W ? (Age): 1965(46) Med Rec#: ?[id number] ? Sex: ?M ? Site Loc: ?[facility] ? Ht / Wt: ??182(cm)/104(kg) Pt. Loc: ? Echo Lab ? BSA: ?2.25 Study Date: ?03/15/2012 ? Pt. Type: Outpatient Tape: ? Referring: Nabeel Araiza ([id number]) Ship Carpenter: Omar Aviles ([id number]) Ship Carpenter 2: Av Chavarria Ship Carpenter 2: Allie Nicholson [facility] Nurse: Ni Anthony Diagnosis: ??Aortic valve disorders (424 .1) CPT Code(s): ??Echo JUN Full (98143), ?? Color Doppler (07851), ??Doppler LTD (22082), Indication(s): ??Myxoma, R/O Rhythm: Sinus HR ?BP 60 ?110/60 ?? SUMMARY: 1. Left ventricular chamber size, wall t hickness, global and segmental systolic function are within normal limi ts. Ejection fraction is estimated to be 60%. 2. Right ventricular chamber size, wall thickness, and systolic function are within normal limits. 3. The left atrium is normal in size. No clot is noted in the left atrial appendage. No atrial septal defec t is visualized. 4. There is no hemodynamically significa nt valve disease and no tumors or vegetations. A tiny (approximately 2 mm) filamentous structure is seen on the ventricular side of the righ t coronary cusp consistent with a Lambl's excrescence (valve strand) and is likely of no clinical signficance. This is seen in loop 8 when played at slow speed. 5. There is no plaque visualized in the ascending aorta. FINDINGS: Study Quality ?Technically limited Left Ventricle ?Left ventricular chamber size, wal l thickness, global and segmental systolic function are within normal limi ts. Ejection fraction is estimated to be 60%. ?No thrombus is visualized within t he left ventricle. Left Atrium ?The left atrium is normal in size. ?No thrombus is visualized within t he left atrium. ?No clot is noted in the left atria l appendage. ?No atrial septal defect is visuali zed. Right Ventricle ?Right ventricular chamber size, wa ll thickness, and systolic function are within normal limits. Right Atrium ?The right atrium is normal in size . ?No thrombus is visualized in the r ight atrium. Aortic Valve ?The aortic valve is trileaflet. Th e leaflets are thin with normal excursion. There is no aortic stenosis o r regurgitation present. ?No vegetation is observed on the a ortic valve. Mitral Valve ?The mitral valve appears normal in structure and function. ?There is trace mitral regurgitatio n present. ?No vegetation is observed on the m itral valve. Tricuspid Valve ?The tricuspid valve appears normal in structure and function. ?There is trace tricuspid regurgita tion present. Pulmonic Valve ?The pulmonic valve appears normal in structure and function. Pericardium ?There is no pericardial effusion. Aorta ?The aorta appears normal. ?There is no plaque visualized in t he ascending aorta. ?There is no plaque visualized in t he aortic arch. Pulmonary Artery ?The main pulmonary artery appears normal. Jun Procedures ?The procedure and risk were explai yesica to the patient who consented to the study. ?After conscious sedation was admin istered per hospital protocol, the JUN probe was passed by Dr. Aviles. Misc ?The cardiac valves appear structur ally and functionally normal. ?There is no hemodynamically signif icant valve disease. ?See remainder of report for additi onal findings. ?Transesophageal echo, limited spec tral Doppler and color Doppler performed. Chambers ?Value ?Units (Range) ? LV EF Est ? 60 ? % (55 to 80) ? This report has been electronically sign ed by: _ Omar Aviles M.D. ? 03/15/2012 13:38:25 Images reviewed and interpretation verif ied [facility] Procedure Note Omar Aviles MD - 03/15/2012Formatti ng of this note might be different from the original. Procedure: Transesophageal Echocardiogra m Patient: VAZQUEZ Guillen (Age): [birth year]) Med Rec#: [id number] Sex: M Site Loc: [facility] Ht / Wt: 182(cm)/104(kg) Pt. Loc: Echo Lab BSA: 2.25 Study Date: 03/15/2012 Pt. Type: Outpati ent Tape: Referring: Nabeel Araiza ([id number]) Ship Carpenter: Omar Aviles ([id number]) Ship Carpenter 2: Av Chavarria Ship Carpenter 2: Allie Nicholson [facility] Nurse: Ni Anthony Diagnosis: Aortic valve disorders (424.1 ) CPT Code(s): Echo JUN Full (52281), Parnell r Doppler (24063), Doppler LTD (14141), Indication(s): Myxoma, R/O Rhythm: Sinus HR BP 60 110/60 SUMMARY: 1. Left ventricular chamber size, wall t hickness, global and segmental systolic function are within normal limi ts. Ejection fraction is estimated to be 60%. 2. Right ventricular chamber size, wall thickness, and systolic function are within normal limits. 3. The left atrium is normal in size. No clot is noted in the left atrial appendage. No atrial septal defec t is visualized. 4. There is no hemodynamically significa nt valve disease and no tumors or vegetations. A tiny (approximately 2 mm) filamentous structure is seen on the ventricular side of the righ t coronary cusp consistent with a Lambl's excrescence (valve strand) and is likely of no clinical signficance. This is seen in loop 8 when played at slow speed. 5. There is no plaque visualized in the ascending aorta. FINDINGS: Study Quality Technically limited Left Ventricle Left ventricular chamber size, wall thi ckness, global and segmental systolic function are within normal limi ts. Ejection fraction is estimated to be 60%. No thrombus is visualized within the le ft ventricle. Left Atrium The left atrium is normal in size. No thrombus is visualized within the le ft atrium. No clot is noted in the left atrial remi endage. No atrial septal defect is visualized. Right Ventricle Right ventricular chamber size, wall th ickness, and systolic function are within normal limits. Right Atrium The right atrium is normal in size. No thrombus is visualized in the right atrium. Aortic Valve The aortic valve is trileaflet. The anshul flets are thin with normal excursion. There is no aortic stenosis o r regurgitation present. No vegetation is observed on the aortic valve. Mitral Valve The mitral valve appears normal in stru cture and function. There is trace mitral regurgitation pre sent. No vegetation is observed on the mitral valve. Tricuspid Valve The tricuspid valve appears normal in s tructure and function. There is trace tricuspid regurgitation present. Pulmonic Valve The pulmonic valve appears normal in st ructure and function. Pericardium There is no pericardial effusion. Aorta The aorta appears normal. There is no plaque visualized in the as cending aorta. There is no plaque visualized in the ao rtic arch. Pulmonary Artery The main pulmonary artery appears romain l. Jun Procedures The procedure and risk were explained t o the patient who consented to the study. After conscious sedation was administer ed per hospital protocol, the JUN probe was passed by Dr. Aviles. [facility] The cardiac valves appear structurally and functionally normal. There is no hemodynamically significant valve disease. See remainder of report for additional findings. Transesophageal echo, limited spectral Doppler and color Doppler performed. Chambers Value Units (Range) LV EF Est 60 % (55 to 80) This report has been electronically sign ed by: _ Omar Aviles M.D. 03/15/2012 13:38 :25 Images reviewed and interpretation verif ied [facility] Nabeel Araiza MD ECHO ORDERABLES Performing Organization Address City/State/ZIP Code Phon e Number HEARTLAB SYSTEM documented in this encounter Visit Diagnoses Diagnosis Aortic valve mass Aortic valve disorders documented in this encounter Care Teams [employer] Senior [employer] Relationship Specialty Start Date End Date Anna Mullen MD PCP - General 12/03/10 [address] [place] [address] documented as of this encounter
--- OUTSIDE RECORDS SUMMARY | 2022-03-13 18:36 | XMS_ITS | Encounter Summary ---
:1965 Author Organization [facility] [place] [address] Care Team Providers Name Role Phone Anna Mullen MD Primary Care Provider Encounter Details Date Type Department Care Team Description 10/16/2011 Orders Only Endocrinology at [facility] Divya Hermosillo, [facility] [place] [address] [facility] [phone] ENDOCRINOLOGY [place] PT. 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
--- OUTSIDE RECORDS SUMMARY | 2022-03-13 18:36 | XMS_ITS | Encounter Summary ---
:1965 Author Organization [facility] [place] [address] Care Team Providers Name Role Phone Anna Mullen MD Primary Care Provider Reason for Referral Consultation (Routine) - Closed Specialty Diagnoses / Procedures Referred By Contact Refer red To Contact Neurology Diagnoses Dizziness Fannie Trevino MD Lukovits, Timothy G, MD [facility] CARDIOLOGY DEPT. NEUROLOGY DEPT. [address] [address] Fax: Referral ID Status Reason Start Date Expiration Date Visits V isits Requested Authorized [id number] Closed Consult Only 01/15/2012 07/13/2012 1 1 Reason for Visit Reason Comments Follow-up S/P cath Encounter Details Date Type Department Care Team Description 01/15/2012 Follow-Up Cardiology at [facility] Fannie Trevino, Dizziness (Primary Dx); [facility] Diabetes mellitus; [place] [address] CARDIOLOGY DEPT. [place], [place] [address] (Wo rk) Social History Tobacco Use Types Packs/Day Years Used Date Never Smoker Smokeless Tobacco: Never Used Alcohol Use Standard Drinks/Week Comments No 0 (1 standard drink = 0.6 oz pure alcoho l) Sex Assigned at Date Recorded Male 05/29/2021 11:28 PM EDT documented as of this encounter Last Filed Vital Signs Vital Sign Reading Time Taken Comments Blood Pressure 110/70 01/15/2012 12:51 PM EDT Pulse 54 01/15/2012 12:51 PM EDT Temperature - - Respiratory Rate 16 01/15/2012 12:51 PM EDT Oxygen Saturation 99% 01/15/2012 12:51 PM EDT Inhaled Oxygen Concentration - - Weight 106.1 kg (234 lb) 01/15/2012 12:51 PM EDT Height 190.5 cm (6' 3) 01/15/2012 12:51 PM EDT Body Mass Index 29.25 01/15/2012 12:51 PM EDT documented in this encounter Progress Notes Fannie Trevino MD - 01/15/2012 9:16 PM EDT Patient Active Problem List Diagnoses ??? Diabetes mellitus -on insulin pump ??? Gastroparesis due to DM ??? Stroke-like symptoms ??? Papillary fibroelastoma of heart ??? Hypertension ??? Edema -possibly due to norvasc ??? Migraine ??? LBP radiating to right leg Outpatient encounter prescriptions as of 01/15/2012 Medication Sig Dispense Refill ??? verapamil (CALAN-SR) 240 mg CR tablet [...] by mouth daily. 90 tablet 4 ??? naproxen sodium (ANAPROX) 550 mg tablet Take 1 tablet by mouth 2 times daily as needed (for breakthrough headaches). 60 tablet 5 ??? losartan (COZAAR) 100 mg tablet Take 100 mg by mouth daily. ??? pravastatin (PRAVACHOL) 40 mg tablet Take 40 mg by mouth daily. ??? traMADol (ULTRAM) 50 mg tablet Take 50 mg by mouth every 6 hours as needed. ??? [place]-3 Fatty Acids-Vitamin E (FISH OIL) 1,000 mg Cap Take 5,000 mg by mouth daily. ??? Acetone, Urine, Test (ACETONE, URINE, TEST) Strp by Misc.(Non-Drug; Combo Route) route. ??? DOMPERIDONE, BULK, MISC 10 mg by Misc.(Non-Drug; Combo Route) route 3 times daily. ??? hydrOXYzine (VISTARIL) 25 mg capsule Take 25 mg by mouth 2 times daily as needed. ??? hydrochlorothiazide (HYDRODIURIL) 25 mg tablet Take 25 mg by mouth daily. ??? glucagon, human recombinant, 1 mg injection Inject 1 mg as directed as needed. ??? insulin aspart (NOVOLOG) 100 unit/mL injection [...] mg suppository 25 MG = 1 Suppository(s), [place], Once daily,PRN ??? DISCONTD: losartan (COZAAR) 25 mg tablet Take 25 mg by mouth daily. ??? DISCONTD: VERAPAMIL HCL (VERAPAMIL ORAL) Take 240 mg by mouth 2 times daily. HPI: This is a complex case. The patient has already had multiple opinions from a variety of physicians over many years. 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 He collapsed at home and was brought into [facility] According to the patient, he initially had paralysis of his entire body below his neck. The right side paralysis resolved in 24 hours but the left side took months to recover and he states that he still has some mild left sided weakness today. In addition, he has leg discrepancy. He was initially diagnosed with a virus and did not have any specific treatments other than physical therapy. At age 17 the patient was diagnosed with diabetes and was told that the symptoms that he had at age 11 were probably due to a stroke. The patient reports that there was an abnormality on a head scan. The patient was able to finish school and went to college. 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 He was evaluated for possible seizure at multiple locations. There are notes in [facility] from Dr. Price(seizure expert) who tried a variety of anti-seizure medications, but from the notes -- it sounds like he was never really convinced of seizure (multiple EEGs, etc) and a psyciatric etiology was considered. Other neurologists have seen the patient as well for a constellation of symptoms including: severe headache, migraine, nausea, dizziness, diaphoresis, and weakness. There has not been a clear diagnosis. There has been chest pain associated at times, but multiple cath procedures have demonstrated normal coronaries. The patient states that his symptoms had improved a little bit, but became worse again about 2 yearsago and now he has symptoms frequently and is becoming concerned that these are warning signs that he might have another stroke. The patient states that sometimes his symptoms are provoked by exertion - for example, he was rushing to the appointment today and while walking from the car to the clinic he had some head pain, felt his eyes were sinking in, lightheaded, etc. He denies a problem with balance or vision. Occasionally, his symptoms will start out of the blue - just while he is sitting down, he becomes diaphoretic with a headache and dizziness. His sugars are normal at those times. He was recently seen in [place] by a neurologist who obtained an MRI/MRA. This did not demonstrateany focal abnormalities and the patient reported that the physician was impressed that a prior remote abnormality had completely healed. The patient had a history of a hole in his heart so a PALLAVI was ordered to assess for shunt (presumably part of migraine or embolic evaluation). I have reviewed a copy of this PALLAVI which does not demonstrate a shunt (negative bubble study). However, there is a small mass on one of the aortic valve leaflets and this may represent a fibroelastoma. He is here to discuss management of this mass. Review of Systems Constitutional: Negative for fever, malaise/fatigue and weight gain. HENT: see above. Frequent headaches. Eyes: Negative for blurred vision and visual disturbance. Cardiovascular: see above. Respiratory: Negative for cough, shortness of breath and wheezing. Hematologic/Lymphatic: Negative. Skin: Negative for rash. Musculoskeletal: he has chronic foot and leg pain. Gastrointestinal: chronic gastroparesis All other systems reviewed and are negative. Past Medical History: -see problem list above and HPI. Social history: -nonsmoker -he is a recovering alcoholic. Has not had a drink in many years. -he is remarried. He has 2 biologic children (daughters), 2 adopted children, and 2 stepchildren -works in [employer] Family history: -his mother had a hole in her heart that required surgery at age 5, she was apparently one of the first pediatric cardiac surgeries at [facility] -he has a daughter who had a hole in her heart at but this closed on its own Exam: Filed Vitals: 01/15/12 1251 BP: 110/70 Pulse: 54 Resp: 16 Height: 190.5 cm (6' 3) Weight: 106.142 kg (234 lb) SpO2: 99% Physical Exam Constitutional: Pleasant young male who has a mild speech abnormality which I cannot describe easily, but he states that his speech and memory were impacted by the stroke at age 11 Eyes: Pupils are equal, round, and reactive to light. Neck: Normal range of motion. No JVD present. Cardiovascular: Normal rate and regular rhythm. Exam reveals no gallop and no friction rub. No murmur heard. Pulmonary/Chest: Effort normal and breath sounds normal. He has no wheezes. He has no rales. Abdominal: Soft. Bowel sounds are normal. No tenderness. Musculoskeletal: Normal range of motion. He has mild (1+) pitting edema (both legs). Neurological: He reports a leg length discrepancy and mild weakness on his left side. Skin: No rash noted. Assessment and Plan: I explained to the patient that although there is a small mass seen on the aortic valve, it may be unrelated to his symptoms. I did review the PALLAVI images and it is possible that this is a fibroelastoma, but his constellation of symptoms are not classic for embolic phenomenon. There is sometimes an argument to be made for removal of left sided fibroelastomas even in the absence of any symptoms - especially if they are > 1cm in size; however, I explained to the patient that the symptoms that are bothering him on an almost daily basis may not be impacted by undergoing cardiac surgery. I told them that we would gather some more information - including a formal consult from our stroke specialist (Francisco Javier) and presentation at our monthly valve conference. I will follow-up with him in one month to discuss the results of these discussions. We may need a repeat PALLAVI to assess for any change in size ofthe mass on the aortic valve. The patient and his were agreeable with this plan. documented in this encounter Plan of Treatment Scheduled Referrals Name Type Priority Associated Diagnoses Order S chedule REFERRAL TO Outpatient Referral Routine Dizziness Ordered: NEUROLOGY 01/15/2012 documented as of this encounter Results Cerebrovascular Duplex, Bilateral (01/21/2012 10:38 AM EDT) Component Value Ref Test Analysis Performed At [facility] Range Method Time Signature VB Text VASCUBASE Report Department: Vascular Surgery Lab Patient: [id number] (VAZQUEZREESE) CPT Code: 64470 ICD-9: 780.4 Referring Physician: FANNIE TREVINO Indication: ?? Dizziness ICD9 Diagnosis Code: 780.4 [...] are based on comparisons performe d at [facility] between noninvasive carotid artery d uplex data and arteriographic evaluation of the same patients from 6947-4218. Q / A Sens. Spec. PPV NPV Accuracy Carotid 93% 98% 97% 95% 96% Signed by ROHINI TINAJERO on 2012-01-23 12:37:25 PM VB Text End of Report VASCUBASE Report Specimen (Source) Anatomical Collection Method Collection Time Re ceived Time Location / / Volume Laterality 01/21/2012 10:38 AM EDT Fannie Trevino MD VASCULAR ORDERABLES Performing Organization Address City/State/ZIP Code Phon e Number VASCUBASE documented in this encounter Visit Diagnoses Diagnosis Dizziness - Primary Dizziness and giddiness Diabetes mellitus Type II or unspecified type diabetes bria litus without mention of complication, not stated as uncontrolled Edema documented in this encounter Care Teams Corrective Therapy Aide Teacher Relationship Specialty Start Date End Date Anna Mullen MD PCP - General 12/03/10 [address] [place] [address] documented as of this encounter
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
--- OUTSIDE RECORDS SUMMARY | 2022-03-13 18:36 | XMS_ITS | Encounter Summary ---
:1965 Author Organization [facility] Address [address] [place] [address] Care Team Providers Name Role Phone Anna Mullen MD Primary Care Provider Encounter Details Date Type Department Care Team Description 12/31/2011 Hospital Encounter Same Day Program at Julia Bhakta MD [facility] [place] [address] [place] [address] [phone] (Wo rk) Social History Tobacco Use Types Packs/Day Years Used Date Never Smoker Smokeless Tobacco: Never Used Alcohol Use Standard Drinks/Week Comments No 0 (1 standard drink = 0.6 oz pure alcoho l) Sex Assigned at Date Recorded Male 05/29/2021 11:28 PM EDT documented as of this encounter Last Filed Vital Signs Vital Sign Reading Time Taken Comments Blood Pressure 114/61 12/31/2011 9:12 AM EDT Pulse 75 12/31/2011 9:12 AM EDT Temperature 36.7 ??C (98.1 ??F) 12/31/2011 7:55 AM EDT Respiratory Rate 16 12/31/2011 9:12 AM EDT Oxygen Saturation 96% 12/31/2011 9:12 AM EDT Inhaled Oxygen Concentration - - Weight 102.1 kg (225 lb) 12/31/2011 7:55 AM EDT Height 182.9 cm (6') 12/31/2011 7:55 AM EDT Body Mass Index 30.52 12/31/2011 7:55 AM EDT documented in this encounter Discharge Instructions Discharge InstructionsNaima Pyle RN - 12/31/2011 9:15 AM EDT If questions or concerns please call [phone], after 5 PM call [phone] and ask for the GI Doc neonatal social worker. You may have received medication before and/or during your procedure which effects judgement and reaction time. Do not drive, operate machinery, drink alcoholic beverages, or make important decisions for 24 hours. Be careful on stairs, as you may be unsteady on your feet. You may eat a regular diet as tolerated. Do not smoke if you are alone. IV site-- slight redness or tenderness is normal. You may use a warm compress. If tenderness and redness increases or foul drainage occurs please contact your M.D. Discharge instructions reviewed with patient who expresses understanding. Patient InstructionsClayton Bhakta MD - 12/31/2011 8:56 AM EDT Please see Recommendations in the Provation procedure report which is documented in the procedural note in E-[facility]. AttachmentsThe following attachments cannot be sent through Care Everywhere. UPPER GI ENDOSCOPY: WHAT TO EXPECT AT HOME (PANAMANIAN)documented in this encounter Medications at Time of Discharge Medication Sig Dispensed Refills Start Date End Date trimethobenzamide (TIGAN) Take 1 capsule by 270 capsule 3 02/25/2012 300 mg capsule mouth 3 times daily for 90 days. pantoprazole (PROTONIX) 20 Take 2 tablets by 90 tablet 3 02/25/2012 mg tablet mouth daily for 90 days. carvedilol (COREG) 3.125 Take by mouth 2 0 09/02/2013 mg tablet times daily (with meals). ibuprofen (ADVIL;MOTRIN) Take 1 tablet by 270 tablet 3 10/1610/15/2012 800 mg tablet mouth every 8 hours as needed for Pain. levothyroxine (SYNTHROID) Take 1 tablet by 90 tablet 4 10/0102/07/2013 175 mcg tablet mouth daily. naproxen sodium (ANAPROX) Take 1 tablet by 60 tablet 5 100 12/201001/21/2012 550 mg tablet mouth 2 times daily as needed (for breakthrough headaches). losartan (COZAAR) 100 mg Take by mouth 0 08/10/2013 tablet daily. pravastatin (PRAVACHOL) 40 Take 40 mg by 0 09/02/2013 mg tablet mouth daily. traMADol (ULTRAM) 50 mg Take 100 mg by 0 10/18/2013 tablet mouth 2 times daily. [place]-3 Fatty Take 5,000 mg by 0 01/08/201109/06 Acids-Vitamin E (FISH OIL) mouth daily. 1,000 mg Cap Acetone, Urine, Test by Misc.(Non-Drug; 0 09/02/2013 (ACETONE, URINE, TEST) Combo Route) Strp route. DOMPERIDONE, BULK, MISC 10 mg by 0 12/25/2010 0 01/21/2012 Misc.(Non-Drug; Combo Route) route 3 times daily. hydrOXYzine (VISTARIL) 25 Take by mouth 2 0 12/2410/28/2013 mg capsule times daily as needed. hydrochlorothiazide Take 25 mg by 0 (HYDRODIURIL) 25 mg tablet mouth daily. glucagon, human Inject 1 mg as 0 12/24/201002/08 recombinant, 1 mg directed as injection needed. insulin aspart (NOVOLOG) Inject 0 05/11/2012 100 unit/mL injection subcutaneously. 100 units/Ml solution. Approximally 80 units subcutaneous by pump. VERAPAMIL HCL (VERAPAMIL Take 240 mg by 0 011 01/15/2012 ORAL) mouth 2 times daily. CALCIUM CARBONATE (CALCIUM Take 1,200 mg by 0 09/06/2013 600 ORAL) mouth daily. GLUCOSAMINE HCL/CHONDRO ROGERS Take 3 tablets by 0 09/02/2013 A (GLUCOSAMINE-CHONDROITIN mouth daily. ORAL) multivitamin (THERAGRAN) Take 1 tablet by 0 09/06/2013 tablet mouth daily. aspirin 325 mg tablet Take 325 mg by 0 05/31/2014 mouth daily. documented as of this encounter H&P Notes Clayton Bhakta MD - 12/31/2011 7:53 AM EDT See my office note; no interval change in H + P; clear lungs; RRR; consent signed. documented in this encounter Miscellaneous Notes Miscellaneous - Provider, Scanning - 01/01/2012 1:16 AM EDT Miscellaneous - Provider, Scanning - 01/01/2012 1:14 AM EDT Miscellaneous - Provider, Scanning - 12/31/2011 8:11 AM EDT documented in this encounter Plan of Treatment Not on filedocumented as of this encounter Procedures Procedure Name Priority Date/Time Associated Comments Diagnosis SURGICAL PATHOLOGY Routine 12/31/2011 9:41 Result s for this REPORT AM EDT procedure are i n the results section. SPECIMEN TO PATHOLOGY Routine 12/31/2011 9:01 Res ults for this AM EDT procedure are i n the results section. SPECIMEN TO PATHOLOGY Routine 12/31/2011 9:01 Res ults for this AM EDT procedure are i n the results section. UPPER GASTROINTESTINAL 12/31/2011 8:40 dyspepsia ENDOSCOPY,WITH BIOPSY AM EDT SINGLE OR MULTIPLE (WRVU 2.49) UPPER GI ENDOSCOPY 12/31/2011 8:40 dyspepsia AM EDT UPPER GI ENDOSCOPY Routine 12/31/2011 8:12 Result s for this AM EDT procedure are i n the results section. documented in this encounter Results SURGICAL PATHOLOGY REPORT (12/31/2011 9:41 AM EDT) [facility] Method Time Signature Surgical CERNER Pathology ? [facility] Report ? Provider: ?? CLAYTON BHAKTA ? Pt. Name: ?? REESE NORWOOD ? Acc #: ?[id number] ?Pt. MRN: ?[id number] ? Col Date: ?? 12/31/2011 ?/Sex: ?1965,(46 years),Male ? Rec Date: ?? 12/31/2011 ?LOC: ?SDP ? SURGICAL PATHOLOGY ? ---Pathologic Diagnosis--- ? A - Stomach, biopsy: ? Gastric antrum-type mucosa with reactive gastro ramos. ? B - GE junction, biopsy: ? Esophageal squa mous mucosa with foveolar epithelium buried underneath, ? negative for dysplasia. ? CR-0 ? 01/01/12 ? BJM ? 01/01/12 Verified by: ? Mg Yanez MD ? Pathologist ? (Electronic Si gnature) ? The attending pathologist whose signature appears o n this report has ? reviewed all diagnostic slides and has edited the gallito ss and/or ? microscopic portion of the report in rendering the fi nal pathologic ? diagnosis. ? ---Microscopic Description--- ? Slides reviewed, microscopic description not recorded . ? ---Gross Description--- ? A - Labeled/Fixative: Stomach, formalin. ? Qty/Size/Weight: ?Multiple, ranging from 0.1 c m to 0.3 cm in ? greatest dimension. ? Tissue Description: ?? Soft, pink tissues. ? Sections/Processing: ??(T2) ? B - Labeled/Fixative: GE junction, formalin. ? Qty/Size/Weight: ?Two, averaging 0.2 cm. ? Tissue Description: ?? Soft, ramos tissues. ? Sections/Processing: ??(T1) ??vms/SNS ? ---Clinical Information--- ? Specimen Submitted: ? A - Stomach biopsy ? B - GE junction biopsy ? Clinical History/Diagnosis: ? Gastroparesis, GERD ? [facility] ? Provider: ?? CLAYTON BHAKTA ? Pt. Name: ?? REESE NORWOOD ? Acc #: ?[id number] ?Pt. MRN: ?[id number] ? Col Date: ?? 12/31/2011 ?/Sex: ?1965,(46 years),Male ? Rec Date: ?? 12/31/2011 ?LOC: ?SDP ? SURGICAL PATHOLOGY ? A - Mild gastric erythema - ? HP ? B - Small nodule at 43 cm - ? inflammatory Specimen (Source) Anatomical Collection Method Collection Time Re ceived Time Location / / Volume Laterality 12/31/2011 9:41 AM EDT Clayton Bhakta MD PATHOLOGY/CYTOLOGY ORDERABLE S Performing Organization Address City/State/[place] [address] FARNAZ SWENSON Specimen to Pathology (surgical or derm) (12/31/2011 9:01 AM EDT) Specimen Anatomical Collection Method Collection Time Receive d Time (Source) Location / / Volume Laterality AP Specimen 12/31/2011 9:01 AM 2 9:01 EDT AM EDT Narrative FARNAZ HERBERTIUM - 12/31/2011 9:01 AM E DT Specimen requisition ordered. ??Separate Pathology report to follow Clayton Bhakta MD PATHOLOGY/CYTOLOGY ORDERABLE S Performing Organization Address City/[facility]/ZIP Code Phon mihir Obrien [address] [facility] Specimen to Pathology (surgical or derm) (12/31/2011 9:01 AM EDT) Specimen Anatomical Collection Method Collection Time Receive d Time (Source) Location / / Volume Laterality AP Specimen 12/31/2011 9:01 AM 201 2 9:01 EDT AM EDT Narrative CERNER LARRYENNIUM - 12/31/2011 9:01 AM E DT Specimen requisition ordered. ??Separate Pathology report to follow Clayton Bhakta MD PATHOLOGY/CYTOLOGY ORDERABLE S Performing Organization Address City/[facility] Phon mihir Obrien [address] [facility] (12/31/2011 8:12 AM EDT) Component Value Ref Test Analysis Performed At [facility] Range Method Time Signature UPPER GI [facility]OVATION ENDOSCOPY Endoscopy Patient Name: Reese Hsu ? Procedure Date: 12/31/2011 8:12 AM ? N: [id number] ? Date of : 1965 ? Age: 46 ? Order #: [id number] ? Procedure: ? Upper GI endoscopy Indications: ? Heartburn, History of gastroparesis Providers: ? Clayton Bhakta MD, Ivy collins, ? RN, Cristine Flannery RN Referring : ?Anna Mullen MD Requesting Provider: Dr. Mullen Medicines: ? Monitored Anesthesia Care Complications: ? No immediate complications. Procedure: ? The procedure, indications, benefi ts, ? risks and alternatives were e xplained ? to the patient. Specifically ? discussed were potential ? complications including, but not ? limited to, bleeding, perfora tion, ? infection, missing a cancer, and ? adverse medication reactions. The ? Endoscope was introduced [facility] the ? mouth, and [facility] ? of duod[facility]. The patient marrye rated ? the procedure well. The upper GI ? endoscopy was accomplished wi out ? difficulty. ? Findings: ? The examined duodenum was normal. Patchy mildly ? erythematous mucosa with no bleeding was found in the ? gastric antrum. Biopsies were taken with a cold ? forceps for histology from throughout the stomach to ? rule out h. pylori (jar 1). A medium amount of food ? (residue) was found in the gastric body. A medium ? amount of food (residue) was found in the gastric ? fundus. The Z-line was regular and was found 43 cm ? from the incisors. A single small nodule (2 mm) was ? found at the gastroesophageal junction. Biopsies were ? taken with a cold forceps for histology (jar 2). This ? likely represents an inflammatory polyp.The middle ? third of the esophagus was normal. The upper third of ? the esophagus was normal. ? Impression: ?- Normal examined duodenum. ? - Gastric mucosal abnormality ? characterized by erythema. Th is was ? biopsied. ? - A medium amount of food (re sidue) ? in the stomach. ? - A medium amount of food (re sidue) ? in the stomach. ? - Z-line regular, 43 cm from the ? incisors. ? - Nodule found in the esophag us. This ? was biopsied. ? - Normal middle third of esop hagus. ? - Normal upper third of esoph erwin. Recommendation: ?- Await pathology results. ? - Letter will be sent to hailey gunter and ? referring provider in 8-10 da ys. ? - Decrease fiber in diet (fol low a ? low residue diet) due to felicita ined ? food in the stomach. ? - Return to primary care phys ician as ? previously scheduled. ? Attending Participation: ? I personally performed the entire procedure. ? Clayton Bhakta MD 12/31/2011 9:01 AM ? Number of Addenda: 0 Note Initiated On: 12/31/2011 8:12 AM Specimen (Source) Anatomical Collection Method Collection Time Re ceived Time Location / / Volume Laterality 12/31/2011 8:12 AM EDT Anna Mullen MD GENERAL SURGICAL ORDERABLES Performing Organization Address City/State/ZIP Code Phon e Number [facility] documented in this encounter Visit Diagnoses Not on filedocumented in this encounter Active and Recently Administered Medications Care Teams Bookmobile Librarian Relationship Specialty Start Date End Date Anna Mullen MD PCP - General 12/03/10 [address] [place] [address] documented as of this encounter
--- OUTSIDE RECORDS SUMMARY | 2022-03-13 18:36 | XMS_ITS | Encounter Summary ---
:1965 Author Organization [facility] [place] [address] Care Team Providers Name Role Phone Anna Mullen MD Primary Care Provider Encounter Details Date Type Department Care Team Description 01/15/2012 Abstract Neurology at [facility] Hillary Duenas, [place] [address] Social History Tobacco Use Types Packs/Day [...] on filedocumented in this encounter Care Teams Investigator Cash Shortage Relationship Specialty Start Date End Date Anna Mullen MD PCP - General 12/03/10 [address] [place], [place] [address] documented as of this encounter
--- OUTSIDE RECORDS SUMMARY | 2022-03-13 18:36 | XMS_ITS | Encounter Summary ---
:1965 Author Organization [facility] [place] [address] Care Team Providers Name Role Phone Anna Mullen MD Primary Care Provider Reason for Visit Reason Onset Date Comments Medication Refill 10/16/2011 Encounter Details Date Type Department Care Team Description 10/16/2011 Refill Endocrinology at [facility] Divya Hermosillo MD [facility] [place] [address] ENDOCRINOLOGY DEPT. [phone] [place], [place] [address] (Wo rk) Social History Tobacco [...] on filedocumented in this encounter Care Teams National Coverage Specialist Relationship Specialty Start Date End Date Anna Mullen MD PCP - General 12/03/10 [address] [place], [place] [address] documented as of this encounter
--- OUTSIDE RECORDS SUMMARY | 2022-03-13 18:36 | XMS_ITS | Encounter Summary ---
:1965 Author Organization [facility] [address] Care Team Providers Name Role Phone Anna Mullen MD Primary Care Provider Encounter Details Date Type Department Care Team Description 02/02/2012 Hospital Encounter Laboratory Shaji Zavala MD Diabetes [facility] [place] [address] ENDOCRINOLOGY DEPT. [phone] [place] [address] (Wo rk) Social History Tobacco Use Types Packs/Day Years Used Date Never Smoker Smokeless Tobacco: Never Used Alcohol Use Standard Drinks/Week Comments No 0 (1 standard drink = 0.6 oz pure alcoho l) Sex Assigned at Date Recorded Male 05/29/2021 11:28 PM EDT documented as of this encounter Medications at Time of Discharge Medication Sig Dispensed Refills Start Date End Date citalopram (CELEXA) 20 mg Take 40 mg [...] by mouth 2 0 03/24/2012 times daily. trimethobenzamide (TIGAN) Take 1 capsule by 270 [...] 0 10/18/2013 tablet mouth 2 times daily. [place]-3 Fatty Take 5,000 mg by 0 01/08/201109/06 [...] of this encounter Visit Diagnoses Diagnosis Diabetes Type II or unspecified type diabetes bria litus without mention of complication, not stated as uncontrolled documented in this encounter Care Teams Fleshing Machine Operator Relationship Specialty Start Date End Date Anna Mullen MD PCP - General 12/03/10 [address] [place] [address] documented as of this encounter
--- OUTSIDE RECORDS SUMMARY | 2022-03-13 18:36 | XMS_ITS | Encounter Summary ---
:1965 Author Organization [facility] [place] [address] Care Team Providers Name Role Phone Anna Mullen MD Primary Care Provider Encounter Details Date Type Department Care Team Description 01/29/2012 Notes Only Solid Organ Transpla nt at [facility] [place] [place] [address] Social History Tobacco Use Types Packs/Day Years Used Date Never Smoker Smokeless Tobacco: Never Used Alcohol Use Standard Drinks/Week Comments No 0 (1 standard drink = 0.6 oz pure alcoho l) Sex Assigned at Date Recorded Male 05/29/2021 11:28 PM EDT documented as of this encounter Progress Notes Donna Manzano - 01/30/2012 1:55 PM EDT Transplant Study Abroad Advisor Note: Met with this patient and his in Pancreas Class/Clinic today. We reviewed medical and pharmacy benefits for pancreas transplant. He has dual insurance coverage for medical and prescription coverage. His primary plan covers hospitalization at 100%. He is covered under his 's plan because it is a benefit provided and does not cost any extra out of his pocket. They can afford post transplant medication costs and have no questions or concerns at this time. 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 See copays and prior auth requirements in grid below. Second Pharmacy Plan: [facility] (through his 's employment) . Per Nannette at [facility], this plan cannot be billed secondary. The patient can choose to use it as a primary source of coverage for medications. There is a $100 deductible, then medications are subject to copays. Drug Dose/Form # for 30 Days Copay 30 Day Supply PA Required? Mail Order Available Copay 90 Day Supply Prograf 1mg cap 180 caps $40 Yes [phone] $ Cellcept 250 mg cap 180 caps $40 Yes [phone] $ Myfortic 360 mg tab 120 tabs $ $ Bactrim SS tab 30 tabs $0 $ Mepron 750 mg/5ml 150 ml $ $ Diltiazem CD 120 mg tablet 30 tabs $0 $ K Phos Neutral 250 mg tab 120 tabs $31.02 $ Magnesium Gluconate 500 mg tab 120 tabs $9 OVER THE COUNTER, PAIGE AT LOCAL PHARMACY $ Nexium 40 mg cap 30 tabs $40 $ Nystatin 100K units/ml 600 ml $ $ Valcyte 450 mg tab 60 tabs $40 $ Valtrex 500 mg tab 60 tabs $0 $ documented in this encounter Plan of Treatment Not on filedocumented as of this encounter Visit Diagnoses Not on filedocumented in this encounter Care Teams Taproom Attendant Relationship Specialty Start Date End Date Anna Mullen MD PCP - General 12/03/10 [address] [place] [address] documented as of this encounter
--- OUTSIDE RECORDS SUMMARY | 2022-03-13 18:36 | XMS_ITS | Encounter Summary ---
:1965 Author Organization [facility] [place] [address] Care Team Providers Name Role Phone Anna Mullen MD Primary Care Provider Encounter Details Date Type Department Care Team Description 01/29/2012 Hospital Encounter XRay at [facility] Pancreas disorder [address] [place] [address] Iraj Iniguez MD [facility] [place] [address] [place] [address] Social History Tobacco Use Types [...] 0 10/18/2013 tablet mouth 2 times daily. [place]-3 Fatty Take 5,000 mg by 0 01/08/201109/06 Acids-Vitamin E (FISH OIL) mouth daily. 1,000 mg Cap Acetone, Urine, Test by [facility].(Non-Drug; 0 09/02/2013 (ACETONE, URINE, TEST) Combo Route) [...] Comme nts XR CHEST PA AND Routine 01/29/2012 11:40 AM Pancreas disorder Results for this LATERAL EDT procedure are i n the results section. documented in this encounter Results XR chest routine PA & lateral (01/29/2012 11:40 AM EDT) Anatomical Region Laterality Modality Chest N/A Radiographic Imaging Specimen (Source) Anatomical Collection Method Collection Time Re ceived Time Location / / Volume Laterality 01/29/2012 11:40 AM EDT Narrative 01/29/2012 12:00 PM EDT Examination CHEST ROUTINE PA+LAT Clinical History Reason for exam and clinical history: Pa ncreas Transplant; Comparison 06/11/2009. Technique PA and lateral chest. Findings Minimal linear atelectases at the left l anabel base. ??Otherwise lungs are clear. ?? No pleural effusion. ??Normal size of th e heart and mediastinum. Procedure Note Catrina Robles MD - 2011 Examination CHEST ROUTINE PA+LAT Clinical History Reason for exam and clinical history: Pa ncreas Transplant; Comparison 06/11/2009. Technique PA and lateral chest. Findings Minimal linear atelectases at the left l anabel base. Otherwise lungs are clear. No pleural effusion. Normal size of the heart and mediastinum. Iraj Keller MD IMG DX ORDERABLES documented in this encounter Visit Diagnoses Diagnosis Pancreas disorder Unspecified disease of pancreas documented in this encounter Care Teams Ethylbenzene Converter Operator Relationship Specialty Start Date End Date Anna Mullen MD PCP - General 12/03/10 [address] [place] [address] documented as of this encounter
--- OUTSIDE RECORDS SUMMARY | 2022-03-13 18:36 | XMS_ITS | Encounter Summary ---
:1965 Author Organization [facility] [place] [address] Care Team Providers Name Role Phone Anna Mullen MD Primary Care Provider Reason for Visit Reason Onset Date Comments Other 02/18/2012 Please sign jun orde r Encounter Details Date Type Department Care Team Description 02/18/2012 Telephone Cardiology [place] [facility] Nabeel Araiza, Other (Please sign jun [facility] order ) [place] [address] CARDIOLOGY DEPT. [place] [id number] (Wo rk) Social History Tobacco Use Types Packs/Day Years Used Date Never Smoker Smokeless Tobacco: Never Used Alcohol Use Standard Drinks/Week Comments No 0 (1 standard drink = 0.6 oz pure alcoho l) history of abuse, stopped 1996 Sex Assigned at Date Recorded Male 05/29/2021 11:28 PM EDT documented as of this encounter Miscellaneous Notes Telephone Encounter - Maranda Sandoval - 02/18/2012 9:[address] 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 Please sign the order so we can try to get him in on the same day as the appointment that has already been scheduled with you for March 24. I did not know the answers when placing the order about patients ability To swallow ect. Please complete that part of the order. Thank you, Maranda documented in this encounter Plan of Treatment Not on filedocumented as of this encounter Results Transesophageal Echocardiogram (JUN) (03/15/2012 10:06 AM EDT) P athologist Signature EF 60 [employer] SYSTEM Specimen (Source) Anatomical Location Collection Method / Collectio n Time Received Time / Laterality Volume 03/15/2012 Narrative [facility] - 03/15/2012 1:39 PM EDT Procedure: ? Transesophageal Echocardiogram Patient: ? VAZQUEZ REESE W ? (Age): 1965(46) Med Rec#: ?[id number] ? Sex: ?M ? Site Loc: ?[facility] ? Ht / Wt: ??182(cm)/104(kg) Pt. Loc: ? Echo Lab ? BSA: ?2.25 Study Date: ?03/15/2012 ? Pt. Type: Outpatient Tape: ? Referring: Nabeel Araiza ([id number]) Superintendent Drivers: Omar Aviles ([id number]) Superintendent Drivers 2: Av Chavarria Superintendent Drivers 2: Allie Nicholson [facility] Nurse: Ni Anthony Diagnosis: ??Aortic valve disorders (424 .1) CPT Code(s): ??Echo JUN Full (41143), ?? Color Doppler (85385), ??Doppler LTD (54472), Indication(s): ??Myxoma, R/O Rhythm: Sinus HR ?BP [...] 13:38:25 Images reviewed and interpretation verif ied [facility] Cardiac Ultrasound Laboratory Procedure Note Omar Aviles MD - 03/15/2012Formfrankie khalil of this note might be different from the original. Procedure: Transesophageal Echocardiogra m Patient: VAZQUEZ DELA CRUZ(Age): [birth year]) Med Rec#: [id number] Sex: M Site Loc: [facility] Ht / Wt: 182(cm)/104(kg) Pt. Loc: Echo Lab BSA: 2.25 Study Date: 03/15/2012 Pt. Type: Outpati ent Tape: Referring: Nabeel Araiza ([id number]) Superintendent Drivers: Omar Aviles ([id number]) Superintendent Drivers 2: Av Chavarria Superintendent Drivers 2: Allie Nicholson [facility] Nurse: Ni Anthony Diagnosis: Aortic valve disorders (424.1 ) CPT Code(s): Echo JUN Full (37434), [place] r Doppler (25037), Doppler LTD (90521), Indication(s): Myxoma, R/O Rhythm: Sinus HR BP [...] probe was passed by Dr. Aviles. Misc The cardiac valves appear structurally and functionally [...] :25 Images reviewed and interpretation verif ied [facility] Cardiac Ultrasound Laboratory Nabeel Araiza MD ECHO ORDERABLES Performing Organization Address City/State/ZIP Code Phon e Number [employer] documented in this encounter Visit Diagnoses Diagnosis Aortic valve mass - Primary Aortic valve disorders Aortic valve mass Aortic valve disorders documented in this encounter Care Teams Editorial Assistant Relationship Specialty Start Date End Date Anna Mullen MD PCP - General 12/03/10 [address] [place] [address] documented as of this encounter
--- OUTSIDE RECORDS SUMMARY | 2022-03-13 18:36 | XMS_ITS | Encounter Summary ---
:1965 Author Organization [facility] [place] [address] Care Team Providers Name Role Phone Anna Mullen MD Primary Care Provider Reason for Visit Reason Onset Date Comments Labs Only 10/09/2011 Encounter Details Date Type Department Care Team Description 10/09/2011 Telephone Endocrinology at [facility] Divya Coles, Labs Only [facility] [place] [address] [facility] [phone] ENDOCRINOLOGY DE PT. [place], [place] [address] (Wo rk) Social History Tobacco Use Types Packs/Day Years Used Date Never Smoker Smokeless Tobacco: Never Used Alcohol Use Standard Drinks/Week Comments Not Asked 0 (1 standard drink = 0.6 oz pure alcoho l) Sex Assigned at Date Recorded Male 05/29/2021 11:28 PM EDT documented as of this encounter Miscellaneous Notes Telephone Encounter - Divya Coles MD - 10/09/2011 4:30 PM EST labs documented in this encounter Plan of Treatment Not on filedocumented as of this encounter Results Microalbumin, urine, random (10/10/2011 11:53 AM EST) P athologist Signature U Creatinine 21 mg/dL CERNER MILLENNIUM U Albumin Conc, <3.0 mg/L CERNER Random MILLENNIUM Alb/Cr Ratio, <14 mcg/mg Cr CERNER Random MILLENNIUM Comment: Reference Range* Random collection (mcg/mg creatinine) Normal ?<30 Microalbuminuria ?? 30 - 300 Clinical Albuminuria ?? >300 *[place] Diabetes Association. Diabetic Nephropathy. Diabetes Care 1997;(Suppl 1):S24-S27 Exercise within 24 hour, infection, fe judah, CHF, marked hyperglycemia, and marked hypertension may elevate urinary albumin excretion over baseline values. Specimen Anatomical Collection Method Collection Time Receive d Time (Source) Location / / Volume Laterality Urine specimen 10/10/2011 11:53 2 (specimen) AM EST 11:58 AM EST Divya Coles MD URINE ORDERABLES Performing Organization Address City/State/[place] [address] [facility] HDL/Cholesterol Profile (10/10/2011 11:49 AM EST) athologist Signature Chol, Total 118 <=199 mg/dL CERNER MILLENNIUM Comment: Recommendations of the NCEP Adult Treatm ent Panel for the following risk cutoff thresholds for the [place] populatio n: Desirable: <200 mg/dL Borderline High: 200-239 mg/dL High: > or = 240 mg/dL HDL 54 >=40 mg/dL [facility] MILLENNIUM Comment: Reference range: ??Low HDL: ?? < 40 mg/dL ??Normal: ?40-60 mg/dL ??Desirable: > 60 mg/dL MARQUEZ 2001; 285(19):8978-6186 Chol/HDL Ratio 2.2 ratio CERNER MILLENNI UM Comment: A Cholesterol to HDL ratio below 4:1 is desirable. ??Studies suggest that increased CAD risk occurs at ratios abov e 5 for females and above 6 for men. ? [place] Heart Association ??(htt p://www.americanheart.org) ? Joy Int Med, 1994; 121:641 ? AM J Med, 1998; 105(1A):48S Specimen Anatomical Collection Method Collection Time Receive d Time (Source) Location / / Volume Laterality Blood specimen 10/10/2011 11:49 2 (specimen) AM EST 11:59 AM EST Divya Coles MD CHEMISTRY ORDERABLES Performing Organization Address [facility]/[place] [address] CERNER MILLENNIUM TSH (10/10/2011 11:49 AM EST) P athologist Signature TSH 4.17 0.27 - 4.20 CERNER mcIU/mL MILLENNIUM Specimen Anatomical Collection Method Collection Time Receive d Time (Source) Location / / Volume Laterality Blood specimen 10/10/2011 11:49 2 (specimen) AM EST 11:59 AM EST Divya Coles MD CHEMISTRY ORDERABLES Performing Organization Address City/[facility]/[place] [address] CERNER MILLENNIUM LDL Cholesterol, Direct (10/10/2011 11:49 AM EST) P athologist Signature LDL Chol 58 <=99 mg/dL CERNER Direct MILLENNIUM Comment: The National Cholesterol Education Progr am (NCEP) has set the following guidelines for LDL Cholesterol: Reference range: ?? Optimal: ?<100 mg/dL ?? Near Optimal/Above Optimal: ?? 100-1 29 mg/dL ?? Borderline high: ?130-159 mg/dL ?? High: ? 160-189 mg/dL ?? Very high: ?>ff=298 mg/dL MARQUEZ 2001: 285(19):4345-1991 Specimen Anatomical Collection Method Collection Time Receive d Time (Source) Location / / Volume Laterality Blood specimen 10/10/2011 11:49 2 (specimen) AM EST 11:59 AM EST Divya Coles MD CHEMISTRY ORDERABLES Performing Organization Address City/State/ZIP Code [place] [address] CERNER MILLENNIUM Creatinine, serum (10/10/2011 11:49 AM EST) P athologist Signature Creatinine 1.00 0.80 - CERNER 1.50 mg/dL MILLENNIUM Estimated GFR >60 >=60 CERNER MILLENNIUM Comment: The National Kidney Disease Education Pr ogram (NKDEP) has recommended all laboratories report estimated GFR (eGFR) along with plasma creatinine measurements to assist you with recognit ion of early kidney disease. Caveats: ??Plasma creatinine should be a t steady-state (unchanged within the past week). For patient s multiply eGFR by 1.2. The MDRD equation has not been validated for pedi atric patients and is only valid for patients with age >= 18 years. At present, NKDEP does NOT recommend usi [...] kidney disease. References: http://nkdep.nih.gov/resources/NKDEP_Sug gestn4Labs_0606_508.pdf http://www.kidney.org/professionals/kls/ pdf/faq_gfr.pdf Specimen Anatomical Collection Method Collection Time Receive d Time (Source) Location / / Volume Laterality Blood specimen 10/10/2011 11:49 2 (specimen) AM EST 11:59 AM EST Divya Coles MD CHEMISTRY ORDERABLES Performing Organization Address City/State/ZIP Code [place] [address] FARNAZ SWENSON (ABNORMAL) Hemoglobin A1c (10/10/2011 11:49 AM EST) Analysis Performed At Patho logis Time Signature Hemoglobin A1C 7.1 (H) 4.3 - 6.1 CERNER % MILLENNIUM Est Avg Gluc 157 mg/dL [facility] Comment: eAG equivalents for HbA1c percentages: HbA1c(%) ?eAG(mg/dL) 6.0 ?126 6.5 ?140 7.0 ?154 7.5 ?169 8.0 ?183 8.5 ?197 9.0 ?212 9.5 ?226 10.0 ? 240 Limitations: The eAG calculation has not been validated on women, individuals below 18 years old and above 70 years old, and individuals with hemoglobinopathies. Additional resources are available on [facility] ADA website: ??http://professional.diabetes.org/gluc osecalculator.aspx Reference: Edinson GRISSOM, Nathaniel J, Ari R, et al. ??Tr anslating the A1C assay into estimated average glucose values. ??Diabetes Care 2008:31(8):0278-4369. Specimen Anatomical Collection Method Collection Time Receive d Time (Source) Location / / Volume Laterality Blood specimen 10/10/2011 11:49 2 (specimen) AM EST 11:59 AM EST Divya Coles MD CHEMISTRY ORDERABLES Performing Organization Address City/State/[place] [address] [facility] documented in this encounter Visit Diagnoses Diagnosis DM type 1 (diabetes mellitus, type 1) - Primary Type I (juvenile type) diabetes mellitus without mention of complication, not stated as uncontrolled documented in this encounter Care Teams Overhead Cleaner Relationship Specialty Start Date End Date Anna Mullen MD PCP - General 12/03/10 [address] [place] [address] documented as of this encounter
--- OUTSIDE RECORDS SUMMARY | 2022-03-13 18:36 | XMS_ITS | Encounter Summary ---
:1965 Author Organization [facility] [place] [address] Care Team Providers Name Role Phone Anna Mullen MD Primary Care Provider Encounter Details Date Type Department Care Team Description 02/10/2012 External Results [place] [address] Social History Tobacco Use Types Packs/Day [...] nts TISSUE TYPING, ABO AND CROSSMATCH Routine 02/09/2012 documented in this encounter Results Scan Doc: Tissue Typing, ABO,and Crossmatch (02/09/2012) Narrative This result has an attachment that is no t available. Historical Provider MEDIA MGR SCAN EXT ORDR/RSLT documented in this encounter Visit Diagnoses Not on filedocumented in this encounter Care Teams Manager Product Design Relationship Specialty Start Date End Date Anna Mullen MD PCP - General 12/03/10 [address] [place] [address] documented as of this encounter
--- OUTSIDE RECORDS SUMMARY | 2022-03-13 18:36 | XMS_ITS | Encounter Summary ---
:1965 Author Organization [facility] [place] [address] Care Team Providers Name Role Phone Anna Mullen MD Primary Care Provider Encounter Details Date Type Department Care Team Description 02/02/2012 Hospital Encounter Laboratory Iraj Keller, Pancreas disorder [facility] [place], [place] CENTER [address] TRANSPLANT [phone] SURGERY [place] [address] Social History Tobacco Use Types Packs/Day Years [...] 0 10/18/2013 tablet mouth 2 times daily. [place]-3 Fatty Take 5,000 mg by 0 01/08/201109/06 [...] Procedure Name Priority Date/Time Associated Comments Diagnosis MISCELLANEOUS LAB Routine 02/02/2012 10:57 Pancreas disorder R esults for this REQUEST AM EDT procedure are i n the results section. documented in this encounter Results Miscellaneous Lab request (02/02/2012 10:57 AM EDT) [facility] gist Method Time Signature [facility] Request CERNER Result received in Year Up lab. Specimen Anatomical Collection Method Collection Time Receive d Time (Source) Location / / Volume Laterality Specimen of 02/02/2012 10:57 02/02/2012 unknown material AM EDT 11:20 AM ED T (specimen) Iraj Keller MD HEMATOLOGY ORDERABLES Performing Organization Address City/State/[place] [address] [facility] documented in this encounter Visit Diagnoses Diagnosis Pancreas disorder Unspecified disease of pancreas documented in this encounter Care Teams City Auditor Relationship Specialty Start Date End Date Anna Mullen MD PCP - General 12/03/10 [address] [place] [address] documented as of this encounter
--- OUTSIDE RECORDS SUMMARY | 2022-03-13 18:36 | XMS_ITS | Encounter Summary ---
:1965 Author Organization [facility] [place] [address] Care Team Providers Name Role Phone Anna Mullen MD Primary Care Provider Encounter Details Date Type Department Care Team Description 01/29/2012 Office Visit Transplant Disorder of pancreas [facility] Unique pham (Primary Dx) [place] [address] Social History Tobacco Use Types Packs/Day Years Used Date Never Smoker Smokeless Tobacco: Never Used Alcohol Use Standard Drinks/Week Comments No 0 (1 standard drink = 0.6 oz pure alcoho l) Sex Assigned at Date Recorded Male 05/29/2021 11:28 PM EDT documented as of this encounter Progress Notes Eloisa Stuart RN - 02/03/2012 11:31 AM EDT See note under Dr. Melgar encounter documented in this encounter Plan of Treatment Not on filedocumented as of this encounter Visit Diagnoses Diagnosis Disorder of pancreas - Primary Unspecified disease of pancreas documented in this encounter Care Teams Corporate Compliance Officer Relationship Specialty Start Date End Date Anna Mullen MD PCP - General 12/03/10 [address] [place], [place] [address] documented as of this encounter
--- OUTSIDE RECORDS SUMMARY | 2022-03-13 18:36 | XMS_ITS | Encounter Summary ---
:1965 Author Organization [facility] [place] [address] Care Team Providers Name Role Phone Anna Mullen MD Primary Care Provider Encounter Details Date Type Department Care Team Description 12/31/2011 Surgery Gastroenterology at [facility] [place] Bhakta MD [place] [address] GASTROENTEROLOGY DEPT. [place], [place] [address] (Wo rk) Social History Tobacco [...] EDT If questions or concerns please call [phone], after 5 PM call [phone] and ask for the GI Doc responder. You may have received medication before and/or [...] GI ENDOSCOPY: WHAT TO EXPECT AT HOME ([place]HALA)documented in this encounter Medications at Time of [...] Take 1 tablet by 60 tablet 5 1012/201001/21/2012 550 mg tablet mouth 2 times daily as needed (for breakthrough headaches). losartan (COZAAR) 100 mg Take by mouth 0 08/10/2013 tablet daily. pravastatin (PRAVACHOL) 40 Take 40 mg by 0 09/02/2013 mg tablet mouth daily. traMADol (ULTRAM) 50 mg Take 100 mg by 0 10/18/2013 tablet mouth 2 times daily. [place]-3 Fatty Take 5,000 mg by 0 01/08/201109/06 [...] PATHOLOGY REPORT (12/31/2011 9:41 AM EDT) [facility] Method Time Signature Surgical CERNER Pathology ? [facility] Report ? Provider: ?? [place] BHAKTA ? Pt. Name: ?? REESE NORWOOD ? Acc #: ?[id number] ?Pt. MRN: ?[id number] ? Col Date: ?? 12/31/2011 ?/Sex: ?1965,(46 [...] ? BJM ? 01/01/12 Verified by: ? Renata MORENO, gM ? Pathologist ? (Electronic Si gnature) ? [...] ? Clinical History/Diagnosis: ? Gastroparesis, GERD ? [facility] ? Provider: ?? [place] BHAKTA ? Pt. Name: ?? RAPHAEL CAMACHO, REESE Guillen ? Acc #: ?[id number] ?Pt. MRN: ?[id number] ? Col Date: ?? 12/31/2011 ?/Sex: ?1965,(46 [...] Organization Address City/State/[place] [address] FARNAZ HERBERTIUM Specimen to Pathology (surgical or derm) (12/31/2011 [...] Organization Address City/State/ZIP Code Phon e [place] [address] [facility] Specimen to Pathology (surgical or derm) (12/31/2011 9:01 AM EDT) Specimen Anatomical Collection Method Collection Time Receive d Time (Source) Location / / Volume Laterality AP Specimen 12/31/2011 9:01 AM 201 2 9:01 EDT AM EDT Narrative [facility] - 12/31/2011 9:01 AM E DT Specimen requisition ordered. ??Separate Pathology report to follow [place] Bhakta MD PATHOLOGY/CYTOLOGY ORDERABLE S Performing Organization Address City/[facility]/ZIP Code Phon e Number [address] [facility] UPPER GI ENDOSCOPY (12/31/2011 8:12 AM EDT) Component Value Ref Test Analysis Performed At [facility] Range Method Time Signature UPPER GI [facility] PROVATION ENDOSCOPY Endoscopy Patient Name: Reese Hsu ? Procedure Date: 12/31/2011 8:12 AM ? N: [id number] ? Date of : 1965 ? Age: 46 ? Order #: [id number] ? Procedure: ? Upper GI endoscopy Indications: ? Heartburn, History of gastroparesis Providers: ? [place] Bhakta MD, Ivy collins, ? RN, Cristine Flanenry RN Referring MD: ?Anna Mullen MD Requesting Provider: Dr. Mullen [...] reactions. The ? Endoscope was introduced thro [facility] the ? mouth, and advanced to the ird part ? of duodenum. The patient marrye [...] Active and Recently Administered Medications Care Teams Counseling Center Manager Relationship Specialty Start Date End Date Anna Mullen MD PCP - General 12/03/[address] [place] [address] documented as of this encounter
--- OUTSIDE RECORDS SUMMARY | 2022-03-13 18:36 | XMS_ITS | Encounter Summary ---
:1965 Author Organization [facility] [address] Care Team Providers Name Role Phone Anna Mullen MD Primary Care Provider Encounter Details Date Type Department Care Team Description 01/21/2012 Hospital Encounter Laboratory Iraj Keller DM type 1 (diabetes mellitus , type 1); [facility] MD Parvin Pancreas disorder [facility] [id number] TRANSPLANT [phone] [place] [address] Social History Tobacco Use Types Packs/Day Years [...] 0 10/18/2013 tablet mouth 2 times daily. Danielson-3 Fatty Take 5,000 mg by 0 01/08/201109/06 Acids-Vitamin E (FISH OIL) mouth daily. 1,000 mg Cap Acetone, Urine, Test by [facility].(Non-Drug; 0 09/02/2013 (ACETONE, URINE, TEST) Combo Route) [...] Procedure Name Priority Date/Time Associated Comments Diagnosis CMP W/FASTING GLUCOSE Routine 01/21/2012 4:15 PM Pancreas diso rder Results for this EDT procedure are i n the results section. QUANTIFERON-TB GOLD Routine 01/21/2012 4:15 PM Pancreas disord er Results for this EDT procedure are i n the results section. HERPESVIRUS 6 Routine 01/21/2012 4:15 PM Pancreas disorder Res ults for this ANTIBODY EDT procedure are i n the results section. DIFFERENTIAL, Routine 01/21/2012 4:15 PM Results for this AUTOMATED EDT procedure are i n the results section. HEPATITIS C ANTIBODY Routine 01/21/2012 4:15 PM Pancreas disor hilton Results for this EDT procedure are i n the results section. SETH-MYERS VIRUS Routine 01/21/2012 4:15 PM Pancreas disorde r Results for this ANTIBODIES EDT procedure are i n the results section. CMV ANTIBODY, IGM Routine 01/21/2012 4:15 PM Pancreas disorder Results for this EDT procedure are i n the results section. SYPHILIS ANTIBODY Routine 01/21/2012 4:15 PM Pancreas disorder Results for this SCREEN WITH REFLEX EDT procedure are in the results section. ABO/RH TYPING Routine 01/21/2012 4:15 PM Pancreas disorder Res ults for this EDT procedure are i n the results section. C-PEPTIDE Routine 01/21/2012 4:15 PM Pancreas disorder Resu lts for this EDT procedure are i n the results section. TOXOPLASMA ANTIBODY, Routine 01/21/2012 4:15 PM Pancreas disor hilton Results for this IGG EDT procedure are i n the results section. HIV SCREEN, 4TH Routine 01/21/2012 4:15 PM Pancreas disorder R esults for this GENERATION EDT procedure are i n ([facility]D/[facility]) the resul ts section. HEPATITIS B SURFACE Routine 01/21/2012 4:15 PM Pancreas disord er Results for this ANTIBODY EDT procedure are i n the results section. HEPATITIS B SURFACE Routine 01/21/2012 4:15 PM Pancreas disord er Results for this ANTIGEN EDT procedure are i n the results section. CMV ANTIBODY, IGG Routine 01/21/2012 4:15 PM Pancreas disorder Results for this EDT procedure are i n the results section. CBC (WITH DIFF) Routine 01/21/2012 4:15 PM Pancreas disorder R esults for this EDT procedure are i n the results section. ANTIBODY SCREEN Routine 01/21/2012 4:15 PM Pancreas disorder R esults for this EDT procedure are i n the results section. VARICELLA ZOSTER Routine 01/21/2012 4:15 PM Pancreas disorder Results for this ANTIBODY, IGG EDT procedure are in the results section. MAGNESIUM Routine 01/21/2012 4:15 PM Pancreas disorder Resu lts for this EDT procedure are i n the results section. LIPASE Routine 01/21/2012 4:15 PM Pancreas disorder Resu lts for this EDT procedure are i n the results section. HEMOGLOBIN A1C Routine 01/21/2012 4:15 PM Pancreas disorder Re sults for this EDT procedure are i n the results section. AMYLASE Routine 01/21/2012 4:15 PM Pancreas disorder Resu lts for this EDT procedure are i n the results section. TYPE AND SCREEN Routine 01/21/2012 3:51 PM Pancreas disorder ([facility]) EDT documented in this encounter Results DIFFERENTIAL, AUTOMATED (01/21/2012 4:15 PM EDT) P athologist Signature Neutrophils % 50.0 34.0 - CERNER 71.0 % MILLENNIUM Neutr Abs (ANC) 2.95 1.50 - CERNER 6.30 MILLENNIUM x10(3)/mcL Lymphocytes % 38.4 19.0 - CERNER 53.0 % MILLENNIUM Lymphocytes Abs 2.3 1.0 - 3.6 CERNER x10(3)/mcL MILLENNIUM Monocytes % 8.0 4.0 - 13.0 CERNER % MILLENNIUM Monocyte Abs 0.5 0.2 - 1.0 CERNER x10(3)/mcL MILLENNIUM Eosinophils % 2.5 0.0 - 7.0 CERNER % MILLENNIUM Eosinophils Abs 0.2 0.0 - 0.5 CERNER x10(3)/mcL MILLENNIUM Basophils % 0.8 0.0 - 2.0 CERNER % MILLENNIUM Basophils Abs 0.0 0.0 - 0.2 CERNER x10(3)/mcL MILLENNIUM Immature Gran % 0.30 0.00 - CERNER [...] 0.02 0.00 - 0.05 x10(3)/mcL [facility] Specimen Anatomical Collection Method Collection Time Receive d Time (Source) Location / / Volume Laterality Blood specimen 01/21/2012 4:15 PM 012 4:25 (specimen) EDT PM EDT Divya Coles MD HEMATOLOGY ORDERABLES Performing Organization Address City/State/ZIP Code Phon e Number [address] [facility] ANTIBODY SCREEN (01/21/2012 4:15 PM EDT) Analysis [facility] Time Signature Ab Screen Negative [facility] Expires at [id number] [facility] [id number] on: [facility] Specimen Anatomical Collection Method Collection Time Receive d Time (Source) Location / / Volume Laterality Blood specimen 01/21/2012 4:15 PM 012 4:22 (specimen) EDT PM EDT Resulting Agency Comment Spec In Lab Iraj Keller MD BLOOD BANK ORDERABLES Performing Organization Address City/State/ZIP Code Phon e Number [address] [facility] ABO/RH TYPING (01/21/2012 4:15 PM EDT) P athologist Signature ABORh Type O Pos [facility] Specimen Anatomical Collection Method Collection Time Receive d Time (Source) Location / / Volume Laterality Blood specimen 01/21/2012 4:15 PM 012 4:22 (specimen) EDT PM EDT Resulting Agency Comment Spec In Lab Iraj Keller MD BLOOD BANK ORDERABLES Performing Organization Address City/State/[place] [address] CERNER MILLENNIUM (ABNORMAL) Hemoglobin A1c (01/21/2012 4:15 PM EDT) Analysis Performed At Patho logis Time Signature Hemoglobin A1C 6.9 (H) 4.3 - 6.1 CERNER % MILLENNIUM Est Avg Gluc 151 mg/dL CERNER MILLENNIUM Comment: eAG equivalents for [...] into estimated average glucose values. ??Diabetes Care 2008:31(8):4509-3690. Specimen Anatomical Collection Method Collection Time Receive d Time (Source) Location / / Volume Laterality Blood specimen 01/21/2012 4:15 PM 012 4:25 (specimen) EDT PM EDT Resulting Agency Comment Spec In Lab Iraj Keller MD CHEMISTRY ORDERABLES Performing Organization Address [facility]/ZIP Code Phon e Number [address] [facility] Varicella zoster Antibody, IgG (01/21/2012 4:15 PM EDT) Analysis Performed At Patho logist Time Signature Varicella IgG Positive [facility] Specimen Anatomical Collection Method Collection Time Receive d Time (Source) Location / / Volume Laterality Blood specimen 01/21/2012 4:15 PM 012 8:44 (specimen) EDT AM EDT Resulting Agency Comment Spec In Lab Iraj Keller MD IMMUNOLOGY ORDERABLES Performing Organization Address [facility]/ZIP Code Phon e Number [address] [facility] Hepatitis C Antibody (01/21/2012 4:15 PM EDT) Analysis Performed At Patho logist Time Signature Hepatitis C Ab Negative Negative [facility] Specimen Anatomical Collection Method Collection Time Receive d Time (Source) Location / / Volume Laterality Blood specimen 01/21/2012 4:15 PM 012 4:25 (specimen) EDT PM EDT Resulting Agency Comment Spec In Lab Iraj Keller MD IMMUNOLOGY ORDERABLES Performing Organization Address City/[facility]/ZIP Code Phon e Number [address] [facility] Seth-Myers Virus Antibodies (01/21/2012 4:15 PM EDT) Patholo gist Method Time Signature EBV Ab CERNER ? HI ? Expected MILLENNIUM Test ? Result ?LO ??Units ??Values EBV Ab Profile, S ??EBV VCA IgM Ab, S ?Negative -- REFERENCE VALUE -- Negative ??EBV VCA IgG Ab, S ?Positive -- REFERENCE VALUE -- Negative ??EBNA Ab, S ? Positive -- REFERENCE VALUE -- Negative ??Interpretation Results suggest past infection. In most populations, at least 90% of the adult population will have been infected with EBV sometime in the past and therefore, will be positive for anti-VCA/IgG and anti- EBNA. Antibodies to EBNA develop 6-8 weeks after primary infection and remain present for life. ??Presence of VCA/ IgM antibodies indicates recent primary infection with EBV. Test Performed by: [place] [address] [employer]: Sarita Beach, Ph.D. Specimen Anatomical Collection Method Collection Time Receive d Time (Source) Location / / Volume Laterality Blood specimen 01/21/2012 4:15 PM 012 8:32 (specimen) EDT AM EDT Resulting Agency Comment Spec In Lab Iraj Keller MD IMMUNOLOGY ORDERABLES Performing Organization Address [facility] Code Phon e Number [address] CERNER MILLENNIUM CMV Antibody, IgM (01/21/2012 4:15 PM EDT) P athologist Signature CMV IgM Negative CERNER MILLENNIUM Specimen Anatomical Collection Method Collection Time Receive d Time (Source) Location / / Volume Laterality Blood specimen 01/21/2012 4:15 PM 012 8:44 (specimen) EDT AM EDT Resulting Agency Comment Spec In Lab Iraj Keller MD IMMUNOLOGY ORDERABLES Performing Organization Address [facility] [place] [address] CERNER MILLENNIUM CMV Antibody, IgG (01/21/2012 4:15 PM EDT) athologist Signature CMV IgG Negative CERNER MILLENNIUM Specimen Anatomical Collection Method Collection Time Receive d Time (Source) Location / / Volume Laterality Blood specimen 01/21/2012 4:15 PM 012 8:44 (specimen) EDT AM EDT Resulting Agency Comment Spec In Lab Iraj Keller MD IMMUNOLOGY ORDERABLES Performing Organization Address City/[facility] Phon e Number [address] [facility] MILLENNIUM Syphilis Antibody, IgG (01/21/2012 4:15 PM EDT) athologist Signature Syphilis IgG Negative Negative [facility] Specimen Anatomical Collection Method Collection Time Receive d Time (Source) Location / / Volume Laterality Blood specimen 01/21/2012 4:15 PM 012 9:54 (specimen) EDT AM EDT Resulting Agency Comment Spec In Lab Iraj Keller MD IMMUNOLOGY ORDERABLES Performing Organization Address City/[facility] Phon e Number [address] CERNER MILLENNIUM QuantiFERON-TB Gold (01/21/2012 4:15 PM EDT) [facility] Method Time Signature Quantiferon TB Negative Negative CERNER MILLENNIUM Comment: M. tuberculosis (TB) infection NOT likel y A negative QuantiFERON-TB Gold IT result does not preclude the possibility of M. tuberculosis infection or tuberculosis disease: false negative results can be due to sta ge of infection (e.g., specimen obtained prior to the development of bryson lular immune response), co-morbid conditions which affect immune function, or other individual immunological factors. The performance of the QuantiFERON-TB Go ld IT test has not been extensively evaluated with specimens from the follow ing groups of individuals: 1. Individuals who have impaired or alt ered immune function such as those who have HIV infection or AIDS, those who carrera ve transplantation managed with immunosuppressive treatment or others wh o receive immunosuppressive drugs (e.g., corticosteroids, methotrexate, az athioprine, cancer chemotherapy), and those who have other clinical conditions : diabetes, silicosis, chronic renal failure, hematological disorders (e.g., leukemia and lymphomas), and other specific malignancies (e.g., carcinoma o f the head or neck and lung). 2. Individuals younger than age 17 year s. 3. women. As of 01-07-10 the QuantiFERON-TB Gold IT assay will be performed in the [facility] Reference [facility]. Please call [phone], press [phone]; with questions. Specimen Anatomical Collection Method Collection Time Receive d Time (Source) Location / / Volume Laterality Blood specimen 01/21/2012 4:15 PM 012 (specimen) EDT 11:39 AM EDT Resulting Agency Comment Spec In Lab Iraj Keller MD CHEMISTRY ORDERABLES Performing Organization Address City/State/[place] [address] CERNER MILLENNIUM (ABNORMAL) CMP w/fasting Glucose (01/21/2012 4:15 PM EDT) athologist Signature Glucose 216 (H) 65 - 99 CERNER Fasting mg/dL MILLENNIUM [...] Volume 33, Supplement 1, Aug 2009 BUN 11 10 - 20 mg/dL CERNER MILLENNIU M Creatinine 0.94 0.80 - 1.50 mg/dL CERNER MILL ENNIUM Sodium 135 135 - 145 mmol/L CERNER LALA NIUM [...] 55 unit/L CERNER MILLENNIU M Alk Phos 96 40 - 120 unit/L CERNER MILLENN IUM [...] EDT Resulting Agency Comment Spec In Lab Iraj Keller MD CHEMISTRY ORDERABLES Performing Organization Address City/State/[place] [address] CERNER MILLENNIUM (ABNORMAL) CBC (with Diff) (01/21/2012 4:15 PM EDT) P athologist Signature WBC 5.9 4.0 - 10.0 CERNER x10(3)/mcL MILLENNIUM RBC 4.50 (L) 4.63 - CERNER 6.08 MILLENNIUM x10(6)/mcL Hemoglobin 13.5 (L) 13.7 - CERNER 17.5 gm/dL MILLENNIUM Hematocrit 38.9 (L) 40.0 - CERNER 51.0 % MILLENNIUM MCV 86.4 79.0 - CERNER 92.0 fL MILLENNIUM MCH 30.0 25.6 - CERNER 32.2 pg MILLENNIUM MCHC 34.7 32.0 - CERNER 36.5 gm/dL MILLENNIUM Platelets 256 145 - 370 CERNER x10(3)/mcL MILLENNIUM RDWSD 38.5 35.0 - CERNER 46.0 fL [facility] RDWCV 12.1 10.9 - CERNER 14.4 % [facility] MPV 10.9 9.0 - 12.0 CERNER fL [facility] Specimen Anatomical Collection Method Collection Time Receive d Time (Source) Location / / Volume Laterality Blood specimen 01/21/2012 4:15 PM 012 4:25 (specimen) EDT PM EDT Resulting Agency Comment Spec In Lab Iraj Keller MD HEMATOLOGY ORDERABLES Performing Organization Address City/State/ZIP Code Phon e Number [address] [facility] Lipase (01/21/2012 4:15 PM EDT) P athologist Signature Lipase 12 0 - 60 CERNER unit/L [facility] Specimen Anatomical Collection Method Collection Time Receive d Time (Source) Location / / Volume Laterality Blood specimen 01/21/2012 4:15 PM 012 4:25 (specimen) EDT PM EDT Resulting Agency Comment Spec In Lab Iraj Keller MD CHEMISTRY ORDERABLES Performing Organization Address City/State/ZIP Code Phon e Number [address] [facility] Amylase (01/21/2012 4:15 PM EDT) P athologist Signature Amylase 63 28 - 100 CERNER unit/L [facility] Specimen Anatomical Collection Method Collection Time Receive d Time (Source) Location / / Volume Laterality Blood specimen 01/21/2012 4:15 PM 012 4:25 (specimen) EDT PM EDT Resulting Agency Comment Spec In Lab Iraj Keller MD CHEMISTRY ORDERABLES Performing Organization Address City/State/ZIP Code Phon e Number [address] [facility] HIV (01/21/2012 4:15 PM EDT) P athologist Signature HIV 1/2 Ab Negative [facility] Specimen Anatomical Collection Method Collection Time Receive d Time (Source) Location / / Volume Laterality Blood specimen 01/21/2012 4:15 PM 012 4:25 (specimen) EDT PM EDT Resulting Agency Comment Spec In Lab Iraj Keller MD IMMUNOLOGY ORDERABLES Performing Organization Address [facility] Code Phon e Number [address] [facility] (ABNORMAL) C-peptide (01/21/2012 4:15 PM EDT) P athologist Signature C-Peptide <0.10 (L) 0.80 - CERNER 3.10 ng/mL [facility] Comment: Test Performed by [place], [employer] [facility], [address] [place] [address] 2014 08 Sumanth Christiansen M.D., Ph.D., Director of Laboratories , [place] [id number] Specimen Anatomical Collection Method Collection Time Receive d Time (Source) Location / / Volume Laterality Blood specimen 01/21/2012 4:15 PM 012 8:59 (specimen) EDT AM EDT Resulting Agency Comment Spec In Lab Iraj Keller MD CHEMISTRY ORDERABLES Performing Organization Address [facility]/ZIP Code Phon e Number [address] [facility] (ABNORMAL) Herpesvirus 6 Antibody Panel by IFA (01/21/2012 4:15 PM EDT) Analysis Performed At Patho logist Time Signature Herpes 6 IgG 1:160 (H) [facility] Comment: Test Performed by: [employer] [address] [place] [address] Herpes 6 IgM <1:20 [facility] Comment: Test Performed by: [employer] [address] [place] [address] Herpes 6 Ab Interp PAST INFECTION [facility] Comment: REFERENCE RANGE: ??IgG ??<1:10 ?IgM ??<1:20 [...] perform ance characteristics have been determined by [employer]. It has not been cleared or approved by the U.S. Food and Drug Administration . The FDA has determined that such clearance or ap proval is not necessary. Performance characteristi cs refer to the analytical performance of the charles t. Test Performed by: [employer] [address] [place] [phone] Specimen Anatomical Collection Method Collection Time Receive d Time (Source) Location / / Volume Laterality Blood specimen 01/21/2012 4:15 PM 012 8:28 (specimen) EDT AM EDT Resulting Agency Comment Spec In Lab Iraj Keller MD IMMUNOLOGY ORDERABLES Performing Organization Address City/State/ZIP Code Phon e Number [address] CERNER MILLENNIUM Toxoplasma Antibody, IgG (01/21/2012 4:15 PM EDT) Patholo gist Method Time Signature Toxoplasma IgG Negative Negative CERNER MILLENNIUM Specimen Anatomical Collection Method Collection Time Receive d Time (Source) Location / / Volume Laterality Blood specimen 01/21/2012 4:15 PM 012 8:44 (specimen) EDT AM EDT Resulting Agency Comment Spec In Lab Iraj Keller MD IMMUNOLOGY ORDERABLES Performing Organization Address City/[facility]/ZIP Code Phon e Number [address] CERNER MILLENNIUM Magnesium (01/21/2012 4:15 PM EDT) P athologist Signature Magnesium 0.78 0.69 - 1.07 CERNER mmol/L MILLENNIUM Specimen Anatomical Collection Method Collection Time Receive d Time (Source) Location / / Volume Laterality Blood specimen 01/21/2012 4:15 PM 012 4:25 (specimen) EDT PM EDT Resulting Agency Comment Spec In Lab Iraj Keller MD CHEMISTRY ORDERABLES Performing Organization Address City/[facility]/ZIP Code Phon e Number [address] [facility] Hepatitis B Surface Antibody (01/21/2012 4:15 PM EDT) Analysis Performed At Patho logist Time Signature HepB Surface Positive CERNER Ab [facility] Comment: Expected Results: Vaccinated: Positive Unvaccinated: Negative [...] EDT Resulting Agency Comment Spec In Lab Iraj Keller MD IMMUNOLOGY ORDERABLES Performing Organization Address City/[facility]/ZIP Code Phon e Number [address] [facility] Hepatitis B Surface Antigen (01/21/2012 4:15 PM EDT) Analysis Performed At Path logist Time Signature HepB Surface Negative Negative [facility]ERNER Ag [facility] Specimen Anatomical Collection Method Collection Time Receive d Time (Source) Location / / Volume Laterality Blood specimen 01/21/2012 4:15 PM 012 4:25 (specimen) EDT PM EDT Resulting Agency Comment Spec In Lab Iraj Keller MD CHEMISTRY ORDERABLES Performing Organization Address City/[facility]/ZIP Code Phon e Number [address] [facility] documented in this encounter Visit Diagnoses Diagnosis DM type 1 (diabetes mellitus, type 1) Type I (juvenile type) diabetes mellitus without mention of complication, not stated as uncontrolled Pancreas disorder Unspecified disease of pancreas documented in this encounter Care Teams Manager Media Relations Relationship Specialty Start Date End Date Anna Mullen MD PCP - General 12/03/10 [address] [place] [address] documented as of this encounter
--- OUTSIDE RECORDS SUMMARY | 2022-03-13 18:36 | XMS_ITS | Encounter Summary ---
:1965 Author Organization [facility] [place] [address] Care Team Providers Name Role Phone Anna Mullen MD Primary Care Provider Reason for Referral Surgical (Routine) - Closed Specialty Diagnoses / Procedures Referred By Contact Refer red To Contact General Surgery / Diagnoses Gastroparesis Mauricio Gonsalez MD [facility] 2m Transplant [facility] GASTROENTEROLOGY [place], [place] DEPT. [id number] [place] [address] Referral ID Status Reason Start Date Expiration Date Visits V isits Requested Authorized [id number] Closed Specialty 11/27/2011 05/25/2012 1 1 Service Requested onsultation (Routine) - Duplicate Referral Specialty Diagnoses / Procedures Referred By Contact Refer red To Contact Transplant Diagnoses Gastroparesis GERD (gastroesophageal reflux disease) [facility] [address] [place] [address] [place] [address] Referral ID Status Reason Start Expiration Visits Visits Date Date Requested Authorized [id number] Duplicate Consult, 11/27/2011 05/25/2012 1 1 Referral Test & Treat Reason for Visit Reason Comments GI Problem Encounter Details Date Type Department Care Team Description 11/27/2011 Follow-Up Gastroenterology at [facility] Mauricio Gonsalez, Gastroparesis (Primary Dx); [facility] Unique pham MD GERD (gastroesophageal reflux disease) [place] [address] [facility] [phone] [facility] [place] [address] Social History Tobacco Use Types Packs/Day Years Used Date Never Smoker Smokeless Tobacco: Never Used Alcohol Use Standard Drinks/Week Comments Not Asked 0 (1 standard drink = 0.6 oz pure alcoho l) Sex Assigned at Date Recorded Male 05/29/2021 11:28 PM EDT documented as of this encounter Last Filed Vital Signs Vital Sign Reading Time Taken Comments Blood Pressure 148/69 11/27/2011 4:43 PM EDT Pulse - - Temperature - - Respiratory Rate - - Oxygen Saturation - - Inhaled Oxygen Concentration - - Weight 103.4 kg (228 lb) 11/27/2011 4:43 PM EDT Height - - Body Mass Index 30.92 10/10/2011 12:51 PM EST documented in this encounter Progress Notes Mauricio Gonsalez MD - 12/03/2011 5:28 PM EDT GI FOLLOWUP Richard Hsu Male, 46 yrs, 1965 PCP: ANNA MULLEN PROVIDER: Mauricio Gonsalez MD, PhD ([id number]) REASON FOR VISIT This is a very nice 46-year-old man who returned today in followup. DATE OF LAST OFFICE VISIT 05/13/11. REASON I FOLLOW PATIENT Symptoms of reflux and gastroparesis related to his diabetes. LAST VISIT At our last visit, he weighed 226 pounds. We had him use domperidone and this significantly improvedhis symptoms of nausea and fullness; however, due to financial circumstances he can no longer affordthat. Since stopping domperidone, he has had more problems with nausea, fullness, and early satiety. At one point, he ran out of his PPI and he clearly recognized he needed his daily PPI. We tried every third day and every other day, but he had near-daily reflux symptoms. Now on 40 mg of Protonix eachday his reflux symptoms are significantly better. There are no symptoms of odynophagia or dysphagia to liquids or solids. A new symptom for his man is that of significant constipation. He now routinely skips three to four days without a bowel movement, which makes him quite uncomfortable. This is a new symptom for him. This likely represents another diabetes side effect. OTHER MEDICAL ISSUES He has been struggling with severe headaches; he has had two or three ER visits to [facility]. During these visits, he had a CT scan of the head (normal) and an MRI/MRA of the brain (this showed an abnormal right cerebral artery likely related to a problem as an ). He also had an echocardiogram and a PALLAVI and these were normal. He is now treated with a combination of naproxen, hydroxyzine, and Zofran, and this improves the pain, nausea, and vomiting when he develops a severe headache. We had a lengthy discussion about his symptoms. I briefly raised the issue of a gastric stimulator, although his gastroparesis symptoms are not that severe at present. We also briefly discussed a pancreas transplant. He is interested in that and would like to be referred to the transplant surgery group to discuss the risks and benefits of pancreas transplant. A treatment plan is outlined below. ALLERGIES: Simvastatin ADR: 1. Nexium, Prilosec, Zantac all caused diarrhea 2. Metoclopramide - twitching; tardive dyskinesia MEDICATIONS: See eD-H. PAST MEDICAL HISTORY: 1. 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 hypertension 3. hypothyroidism 4. depression 5. migraine headaches 6. ASCVD PAST SURGICAL HISTORY: 1. right shoulder surgery, 2. right carpal tunnel surgery, late 3. appendectomy, SOCIAL HISTORY: Recent marriage 03/09/10. He has four children, two adopted (both age 18), one 18 andhealthy, one adopted daughter, age 18, with anorexia, one child age 13 who is healthy. 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 HABITS: no tobacco, no alcohol X12 years FAMILY HISTORY: mother alive at age 62; father alive at age 70; no first-degree family member with any type of GI malignancy, inflammatory bowel disease, celiac sprue RECENT TESTIN. EGD, 07/18/2009: mild gastritis; H pylori negative; retained food in the stomach; small bowel biopsies normal 2. EGD, approximately 2000: gastritis noted 3. colonoscopy, approximately 2005: normal by patient's report 4. four hour solid phase gastric emptying scan, 07/11/2009, [facility]: 39% of material remaining at four hours 5. echocardiogram spring 2010: normal MEDICATION TRIALS: 1. Metoclopramide: helped bloating and pain 2. Carafate: no help with GI symptoms 3. Nexium - helped heartburn; caused diarrhea 4. Prilosec - helped heartburn; caused diarrhea 5. Prevacid - helped heartburn; caused diarrhea 6. Zantac - helped heartburn; caused diarrhea. 7. Domperidone - significant improvement in dyspepsia, nausea, vomiting. PHYSICAL EXAM Well-spoken, appropriate, interactive man in no acute distress. Weight today 228 pounds. See eD-H for vital signs. HENT: Pupils reactive to light, anicteric. Oropharynx clear without lesions. Neck supple without lymphadenopathy. Chest clear bilaterally post cough. Cor: Regular rate and rhythm without rubs, murmurs or gallops. Abdomen: Rounded, soft. Bowel sounds present. No succussion splash or bruit. Spleen tip not felt. Liver edge non-nodular, nontender. No masses, rebound, guarding, ascites. Extremities with 2+ radial pulses, no peripheral edema. IMPRESSIONS/RECOMMENDATIONS 1. JULIUS. Continue lifestyle modifications, continue Protonix at 40 mg q.a.m.; a new prescription was provided. 2. Diabetic gastroparesis. Continue diabetic gastroparesis diet. Trial of Tigan starting at 300 mg each night to help with nausea and vomiting. 3. Schedule upper endoscopy due to gastroparesis and GERD symptoms. 4. Start MiraLAX at 1/2 capful each night, and over the next two weeks increase to 1 full capful each night. Routine, scheduled bathroom time the following morning. 5. Referral to the transplant group for consideration of pancreas transplant. 6. He will follow up with his primary care provider as scheduled. TIME SPENT WITH PATIENT Total Minutes: 40 Minutes of Wdod-vs-Kjwj Counselin I will see the patient back in followup in six months. Mauricio Gonsalez, PhD, MD a&p mechanic Section of Gastroenterology and Hepatology [facility] [id number] V: [phone] F: [phone] BEL/balwinder CC/EC: PCP documented in this encounter Plan of Treatment Scheduled Referrals Name Type Priority Associated Diagnoses Order S chedule REFERRAL TO Outpatient Routine Gastroparesis Ordered: GASTROENTEROLOGY Referral GERD 11/27/2011 (gastroesophageal reflux disease) REFERRAL TO GENERAL Outpatient Routine Gastroparesis Ordered : SURGERY Referral 11/27/2011 documented as of this encounter Visit Diagnoses Diagnosis Gastroparesis - Primary GERD (gastroesophageal reflux disease) Esophageal reflux documented in this encounter Care Teams Care Transitions Manager Relationship Specialty Start Date End Date Anna Mullen MD PCP - General 12/03/10 [address] [place] [address] documented as of this encounter
--- OUTSIDE RECORDS SUMMARY | 2022-03-13 18:36 | XMS_ITS | Encounter Summary ---
:1965 Author Organization [facility] [address] Care Team Providers Name Role Phone Anna Mullen MD Primary Care Provider Encounter Details Date Type Department Care Team Description 03/15/2012 Hospital Encounter Same Day Program at [facility], Goldie Rich MD Critical access [place] [address] [place] [address] [phone] Social History Tobacco Use Types Packs/Day Years Used Date Never Smoker Smokeless Tobacco: Never Used Alcohol Use Standard Drinks/Week Comments No 0 (1 standard drink = 0.6 oz pure alcoho l) history of abuse, stopped 1996 Sex Assigned at Date Recorded Male 05/29/2021 11:28 PM EDT documented as of this encounter Last Filed Vital Signs Vital Sign Reading Time Taken Comments Blood Pressure 124/80 03/15/2012 10:56 AM EDT Pulse 59 03/15/2012 10:56 AM EDT Temperature 36.7 ??C (98.1 ??F) 03/15/2012 10:15 AM EDT Respiratory Rate 16 03/15/2012 10:56 AM EDT Oxygen Saturation 99% 03/15/2012 10:56 AM EDT Inhaled Oxygen Concentration - - [...] Dx V42.83 Diabetic Supplies, Fax form to [facility] 100 each 12 09/02/2013 0 05/10/2014 [facility]. [facility] for testing supplies [...] 08/29/20 13 08/29/2013 mg tablet daily; 20mg [id number]; Then 15mg x7days; Then 10mg x7days; Then [...] Inject 1 mL as 2 each 11 02/09/201205/11 recombinant, 1 mg directed as injection [...] 0 10/18/2013 tablet mouth 2 times daily. Gladstone-3 Fatty Take 5,000 mg by 0 01/08/201109/06 Acids-Vitamin E (FISH OIL) mouth daily. 1,000 mg Cap Acetone, Urine, Test by [facility]Non-Drug; 0 09/02/2013 (ACETONE, URINE, TEST) Combo Route) [...] documented in this encounter H&P Notes Naomi Chavarria - 03/15/2012 8:37 AM EDT Richard Hsu [id number] 03/15/2012 46 y.o. Same Day Procedure History [...] on right coronary cusp) on PALLAVI at [facility] last year. He presents for followup PALLAVI [...] procedure, he and his are agreeable NAOMI CHAVARRIA MD Page [phone] documented in this encounter Miscellaneous Notes Miscellaneous [...] 294 (H) 60 - 199 CERNER mg/dL [facility] Comment: Supplemental ranges: <110 mg/dL before meals <200 mg/dL all other times of the day Specimen Anatomical Collection Method Collection Time Receive d Time (Source) Location / / Volume Laterality Blood specimen 03/15/2012 11:23 2 (specimen) AM EDT 11:23 AM EDT Richard Young MD POINT OF CARE TEST ORDERABLE S Performing Organization Address City/State/ZIP Code Phon e Number [place] [phone] CERNER MILLENNIUM (ABNORMAL) POCT GLUCOSE LAB USE ONLY (03/15/2012 10:34 AM EDT) athologist Signature POC Glucose 256 (H) 60 - 199 CERNER mg/dL MILLENNIUM [...] Organization Address City/State/[place] [address] CERNER MILLENNIUM (ABNORMAL) POCT GLUCOSE LAB USE ONLY (03/15/2012 8:11 AM EDT) P athologist Signature POC Glucose 286 (H) 60 - 199 CERNER mg/dL [facility] Comment: Supplemental ranges: <110 mg/dL before meals <200 mg/dL all other times of the day Specimen Anatomical Collection Method Collection Time Receive d Time (Source) Location / / Volume Laterality Blood specimen 03/15/2012 8:11 AM 012 8:11 (specimen) EDT AM EDT Richard Young MD POINT OF CARE TEST ORDERABLE S Performing Organization Address City/State/[place] [address] [facility] documented in this encounter Visit Diagnoses Not [...] 03/15/2012 midazolam (VERSED) injection 3 mg (COMPLETED) 924 (Given - Provider: Ni Anthony, MIGUELITO)0928 (Given - Provider: Ni Anthony, MIGUELITO)09 (Given - Provider: Ni Anthony, MIGUELITO) 3 mg, Intravenous, ONCE, 1 dose, Mon 02/28 02/09 at 0930, Echo Lab (Intra- Procedure), Routine PRN Medication Order 03/13/2012 03/14/2012 03/15/2012 fentaNYL 50mcg/mL injection (CANCELED) 924 (Given - Provider: Ni Anthony RN)0936 (Given - Provider: Ni Anthony, RN) 25 mcg, Intravenous, EVERY 1 HOUR PRN, S tarting Thu03/15/12 at 0953, Until Thu03/15/12 at 1337, Pain, Echo Lab (Intra-Procedure), Routine documented in this encounter Care Teams Ear Specialist Relationship Specialty Start Date End Date Anna Mullen MD PCP - General 12/03/10 [address] [place] [address] documented as of this encounter
--- OUTSIDE RECORDS SUMMARY | 2022-03-13 18:36 | XMS_ITS | Encounter Summary ---
:1965 Author Organization [facility] [place] [address] Care Team Providers Name Role Phone Anna Mullen MD Primary Care Provider Encounter Details Date Type Department Care Team Description 01/12/2012 Orders Only Solid Organ Transplant Eloisa Stuart RN P ancreas disorder at [facility] (Primary Dx) [place] [address] Social History Tobacco Use Types Packs/Day Years Used Date Never Smoker Smokeless Tobacco: Never Used Alcohol Use Standard Drinks/Week Comments No 0 (1 standard drink = 0.6 oz pure alcoho l) Sex Assigned at Date Recorded Male 05/29/2021 11:28 PM EDT documented as of this encounter Plan of Treatment Not on filedocumented as of this encounter Results XR chest routine PA [...] ?? No pleural effusion. ??Normal size of [facility] heart and mediastinum. Procedure Note Catrina Robles MD - 2011 Examination CHEST ROUTINE PA+LAT Clinical History Reason for exam and clinical history: Pa ncreas Transplant; Comparison 06/11/2009. Technique PA and lateral chest. Findings Minimal linear atelectases at the left l anabel base. Otherwise lungs are clear. No pleural effusion. Normal size of the heart and mediastinum. Iraj Keller MD IMG DX ORDERABLES (ABNORMAL) Hemoglobin A1c (01/21/2012 4:15 PM EDT) Analysis Performed At [facility] Time Signature Hemoglobin A1C 6.9 (H) 4.3 - 6.1 CERNER % MILLENNIUM Est Avg Gluc 151 mg/dL CERNER [facility] Comment: eAG equivalents for HbA1c percentages: HbA1c(%) ?eAG(mg/dL) 6.0 ?126 6.5 ?140 7.0 ?154 7.5 ?169 8.0 ?183 8.5 ?197 9.0 ?212 9.5 ?226 10.0 ? 240 Limitations: The eAG calculation has not been validated on women, individuals below 18 years old and above 70 years old, and individuals with hemoglobinopathies. Additional resources are available on [facility] ADA website: ??http://professional.diabetes.org/gluc osecalculator.aspx Reference: Edinson GRISSOM, Nathaniel J, Ari R, et al. ??Tr anslating the A1C assay into estimated average glucose values. ??Diabetes Care 2008:31(8):4866-8621. Specimen Anatomical Collection Method Collection Time Receive d Time (Source) Location / / Volume Laterality Blood specimen 01/21/2012 4:15 PM 012 4:25 (specimen) EDT PM EDT Resulting Agency Comment Spec In Lab Iraj Keller MD CHEMISTRY ORDERABLES Performing Organization Address [facility] Phon e Number [address] CERNER MILLENNIUM Varicella zoster Antibody, IgG (01/21/2012 4:15 PM EDT) Analysis Performed At [facility] Time Signature Varicella IgG Positive [facility] Specimen Anatomical Collection Method Collection Time Receive d Time (Source) Location / / Volume Laterality Blood specimen 01/21/2012 4:15 PM 012 8:44 (specimen) EDT AM EDT Resulting Agency Comment Spec In Lab Iraj Keller MD IMMUNOLOGY ORDERABLES Performing Organization Address [facility] Phon e Number [address] CERNER MILLENNIUM Hepatitis C Antibody (01/21/2012 4:15 PM EDT) Analysis Performed At [facility] Time Signature Hepatitis C Ab Negative Negative [facility] Specimen Anatomical Collection Method Collection Time Receive d Time (Source) Location / / Volume Laterality Blood specimen 01/21/2012 4:15 PM 012 4:25 (specimen) EDT PM EDT Resulting Agency Comment Spec In Lab Iraj Keller MD IMMUNOLOGY ORDERABLES Performing Organization Address [facility] Phon e Number [address] [facility] Seth-Myers Virus Antibodies (01/21/2012 4:15 PM EDT) [...] primary infection with EBV. Test Performed by: [facility] [address], [place] [address] Horticultural Services Supervisor: Sarita Beach, Ph.D. Specimen Anatomical Collection Method Collection Time Receive d Time (Source) Location / / Volume Laterality Blood specimen 01/21/2012 4:15 PM 012 8:32 (specimen) EDT AM EDT Resulting Agency Comment Spec In Lab Iraj Keller MD IMMUNOLOGY ORDERABLES Performing Organization Address [facility] [place] [address] FARNAZ SWENSON CMV Antibody, IgM (01/21/2012 4:15 PM EDT) P athologist Signature CMV IgM Negative CERNER MILLENNIUM Specimen Anatomical Collection Method Collection Time Receive d Time (Source) Location / / Volume Laterality Blood specimen 01/21/2012 4:15 PM 012 8:44 (specimen) EDT AM EDT Resulting Agency Comment Spec In Lab Iraj Keller MD IMMUNOLOGY ORDERABLES Performing Organization Address [facility]/[place]IP [place] [address] CERNER MILLENNIUM CMV Antibody, IgG (01/21/2012 4:15 PM EDT) athologist Signature CMV IgG Negative [facility]ERN[facility] Specimen Anatomical Collection Method Collection Time Receive d Time (Source) Location / / Volume Laterality Blood specimen 01/21/2012 4:15 PM 012 8:44 (specimen) EDT AM EDT Resulting Agency Comment Spec In Lab Iraj Keller MD IMMUNOLOGY ORDERABLES Performing Organization Address City/[facility]/ZIP Code Phon e Number [address] CERNER MILLENNIUM Syphilis Antibody, IgG (01/21/2012 4:15 PM EDT) athologist Signature Syphilis IgG Negative Negative [facility] Specimen Anatomical Collection Method Collection Time Receive d Time (Source) Location / / Volume Laterality Blood specimen 01/21/2012 4:15 PM 012 9:54 (specimen) EDT AM EDT Resulting Agency Comment Spec In Lab Iraj Keller MD IMMUNOLOGY ORDERABLES Performing Organization Address City/[facility]/ZIP Code Phon e Number [address] CERNER MILLENNIUM QuantiFERON-TB Gold (01/21/2012 4:15 PM EDT) [facility] Method Time Signature Quantiferon TB Negative [...] IT assay will be performed in the [facility]. Please call [phone], press [phone]; with questions. Specimen Anatomical Collection Method Collection Time Receive d Time (Source) Location / / Volume Laterality Blood specimen 01/21/2012 4:15 PM 012 (specimen) EDT 11:39 AM EDT Resulting Agency Comment Spec In Lab Iraj Keller MD CHEMISTRY ORDERABLES Performing Organization Address City/State/[place] [address] CERNER MILLENNIUM (ABNORMAL) CMP [...] of Diabetes Mellitus, Position Statement from the [place] [employer]. ??Diabete s Care, Volume 33, [...] Organization Address City/State/ZIP Code Phon e Number [place] [id number] CERNER MILLENNIUM (ABNORMAL) CBC [...] RDWSD 38.5 35.0 - CERNER 46.0 fL MILLENNIUM RDWCV 12.1 10.9 - CERNER 14.4 % MILLENNIUM MPV 10.9 9.0 - 12.0 CERNER fL [facility] Specimen Anatomical Collection Method Collection Time Receive d Time (Source) Location / / Volume Laterality Blood specimen 01/21/2012 4:15 PM 012 4:25 (specimen) EDT PM EDT Resulting Agency Comment Spec In Lab Iraj Keller MD HEMATOLOGY ORDERABLES Performing Organization Address City/State/ZIP Code Phon e Number [address] [facility] Lipase (01/21/2012 4:15 PM EDT) P athologist Signature Lipase 12 0 - 60 CERNER unit/L [facility] Specimen Anatomical Collection Method Collection Time Receive d Time (Source) Location / / Volume Laterality Blood specimen 01/21/2012 4:15 PM 012 4:25 (specimen) EDT PM EDT Resulting Agency Comment Spec In Lab Iraj Keller MD CHEMISTRY ORDERABLES Performing Organization Address City/[facility]/ZIP Code Phon e Number [address] [facility] Amylase (01/21/2012 4:15 PM EDT) P athologist Signature Amylase 63 28 - 100 CERNER unit/L [facility] Specimen Anatomical Collection Method Collection Time Receive d Time (Source) Location / / Volume Laterality Blood specimen 01/21/2012 4:15 PM 012 4:25 (specimen) EDT PM EDT Resulting Agency Comment Spec In Lab Iraj Keller MD CHEMISTRY ORDERABLES Performing Organization Address City/State/ZIP Code Phon e Number [address] [facility] HIV (01/21/2012 4:15 PM EDT) P athologist Signature HIV 1/2 Ab Negative CERNER MILLENNIUM Specimen Anatomical Collection Method Collection Time Receive d Time (Source) Location / / Volume Laterality Blood specimen 01/21/2012 4:15 PM 012 4:25 (specimen) EDT PM EDT Resulting Agency Comment Spec In Lab Iraj Keller MD IMMUNOLOGY ORDERABLES Performing Organization Address [facility]/ZIP Code Phon e Number [address] CERNER MILLENNIUM (ABNORMAL) C-peptide (01/21/2012 4:15 PM EDT) athologist Signature C-Peptide <0.10 (L) 0.80 - CERNER 3.10 ng/mL [facility] Comment: Test Performed by Alysha Hernandez, [facility], [address] [place] [address] 2014 08 Sumanth Christiansen M.D., Ph.D., Director of Laboratories , [facility] [id number] Specimen Anatomical Collection Method Collection Time Receive d Time (Source) Location / / Volume Laterality Blood specimen 01/21/2012 4:15 PM 012 8:59 (specimen) EDT AM EDT Resulting Agency Comment Spec In Lab Iraj Keller MD CHEMISTRY ORDERABLES Performing Organization Address City/[facility] Code Phon e Number [address] CERNER MILLENNIUM (ABNORMAL) Herpesvirus 6 Antibody Panel by IFA (01/21/2012 4:15 PM EDT) Analysis Performed At [facility] Time Signature Herpes 6 IgG 1:160 (H) CERNER MILLENNIUM Comment: Test Performed by: [email or web address], [employer] [address] [place] [phone] Herpes 6 IgM <1:20 CERNER [facility] Comment: Test Performed by: [email or web address], [employer] [address] [place] [phone] Herpes 6 Ab Interp PAST INFECTION CERNER [...] perform ance characteristics have been determined by [email or web address]. It has not been cleared or approved by the U.S. Food and Drug Administration . The FDA has determined that such clearance or ap proval is not necessary. Performance characteristi cs refer to the analytical performance of the charles t. Test Performed by: [email or web address], [employer]. [address] [place] [phone] Specimen Anatomical Collection Method Collection Time Receive d Time (Source) Location / / Volume Laterality Blood specimen 01/21/2012 4:15 PM 012 8:28 (specimen) EDT AM EDT Resulting Agency Comment Spec In Lab Iraj Keller MD IMMUNOLOGY ORDERABLES Performing Organization Address [facility]/ZIP Code Phon e Number [address] CERNER MILLENNIUM Toxoplasma Antibody, IgG (01/21/2012 4:15 PM EDT) [facility] Method Time Signature Toxoplasma IgG Negative Negative CERNER MILLENNIUM Specimen Anatomical Collection Method Collection Time Receive d Time (Source) Location / / Volume Laterality Blood specimen 01/21/2012 4:15 PM 012 8:44 (specimen) EDT AM EDT Resulting Agency Comment Spec In Lab Iraj Keller MD IMMUNOLOGY ORDERABLES Performing Organization Address [facility]/ZIP [facility] [place] [address] CERNER MILLENNIUM Magnesium (01/21/2012 4:15 PM EDT) P athologist Signature Magnesium 0.78 0.69 - 1.07 CERNER mmol/L MILLENNIUM Specimen Anatomical Collection Method Collection Time Receive d Time (Source) Location / / Volume Laterality Blood specimen 01/21/2012 4:15 PM 012 4:25 (specimen) EDT PM EDT Resulting Agency Comment Spec In Lab Iraj Keller MD CHEMISTRY ORDERABLES Performing Organization Address City/[facility]/ZIP Code Phon e Number [address] CERNER MILLENNIUM Hepatitis B Surface Antibody (01/21/2012 4:15 PM EDT) Analysis Performed At [facility]o [facility] Time Signature HepB Surface Positive CERNER Ab [facility] Comment: Expected Results: Vaccinated: Positive Unvaccinated: Negative [...] Keller MD IMMUNOLOGY ORDERABLES Performing Organization Address City/[facility] Code Phon e Number [address] CERNER [facility] Hepatitis B Surface Antigen (01/21/2012 4:15 PM EDT) Analysis Performed At [facility] Time Signature HepB Surface Negative Negative CERNER Ag MILLENNIUM Specimen Anatomical Collection Method Collection Time Receive d Time (Source) Location / / Volume Laterality Blood specimen 01/21/2012 4:15 PM 012 4:25 (specimen) EDT PM EDT Resulting Agency Comment Spec In Lab Iraj Keller MD CHEMISTRY ORDERABLES Performing Organization Address City/[facility] [place] [address] CERNER MILLENNIUM documented in this encounter Visit Diagnoses Diagnosis Pancreas disorder - Primary Unspecified disease of pancreas Pancreas disorder Unspecified disease of pancreas documented in this encounter Care Teams Application Integrator Relationship Specialty Start Date End Date Anna Mullen MD PCP - General 12/03/10 [address] [place] [address] documented as of this encounter
--- OUTSIDE RECORDS SUMMARY | 2022-03-13 18:36 | XMS_ITS | Encounter Summary ---
:1965 Author Organization [facility] [place] [address] Care Team Providers Name Role Phone Anna Mullen MD Primary Care Provider Reason for Visit Reason Comments Diabetes Encounter Details Date Type Department Care Team Description 10/10/2011 Office Visit Endocrinology at [facility] Divya Hermosillo DM type 1 (diabetes [facility] CMD mellitus, type 1) [facility] (Primary Dx) [place] [address] ENDOCRINOLOG[address] DEPT[address] [place], [place] [address] Social History Tobacco Use Types Packs/Day Years Used Date Never Smoker Smokeless Tobacco: Never Used Alcohol Use Standard Drinks/Week Comments Not Asked 0 (1 standard drink = 0.6 oz pure alcoho l) Sex Assigned at Date Recorded Male 05/29/2021 11:28 PM EDT documented as of this encounter Last Filed Vital Signs Vital Sign Reading Time Taken Comments Blood Pressure 136/87 10/10/2011 12:51 PM EST Pulse 65 10/10/2011 12:51 PM EST Temperature - - Respiratory Rate - - Oxygen Saturation - - Inhaled Oxygen Concentration - - Weight 106.5 kg (234 lb 12.8 oz) 10/10/2011 12:51 PM EST Height 182.9 cm (6') 10/10/2011 12:51 PM EST Body Mass Index 31.84 10/10/2011 12:51 PM EST documented in this encounter Patient Instructions Patient InstructionsDivya Coles MD - 10/10/2011 1:15 PM EST Recent Results (from the past 24 hour(s)) HEMOGLOBIN A1C Component Value Range ??? Hemoglobin A1C 7.1 (*) 4.3 - 6.1 (%) ??? Est Avg Gluc 157 (mg/dL) CREATININE, SERUM Component Value Range ??? Creatinine 1.00 0.80 - 1.50 (mg/dL) ? ? Estimated GFR >60 >=60 LDL CHOLESTEROL, DIRECT Component Value Range ? ? LDL Chol Direct 58 <=99 (mg/dL) TSH Component Value Range ??? TSH 4.17 0.27 - 4.20 (mcIU/mL) HDL/CHOL PROFILE Component Value Range ? ? Chol, Total 118 <=199 (mg/dL) ? ? HDL 54 >=40 (mg/dL) ??? Chol/HDL Ratio 2.2 (ratio) MICROALBUMIN, URINE, RANDOM Component Value Range ??? U Creatinine 21 (mg/dL) ? ? U Ran Malb Conc <3.0 (mg/L) ? ? U Ran Malb Calc <14 (mcg/mg Cr) Levothyroxine 0.125 mg and 0.075 mg six days per week and skip the seventh day When gone take 0.175 mg daily Lower insulin basal rate 6 am 2.15, 3 pm 1.25. F/u 3 mo documented in this encounter Progress Notes Divya Coles MD - 10/10/2011 1:49 PM EST OFFICE NOTE DATE OF DICTATION: 10/10/2011 PRIMARY CARE PROVIDER: Anna Mullen M.D. Brant is here for followup of his type 1 diabetes which he has had since age 11. We have not seen him for about a year now, somehow there was a mix-up in getting his appointments and I told him if that happens again to make sure he calls the clinic to reschedule. His hemoglobin A1c in 10/2010 was 8.6%. Since then he thinks he has been doing better. He has been fairly frequent low blood sugars. Usually during the day time if he has been more active, it will come before a meal, thinks may be his basal rates were too high, and also if he takes a correction bolus, he will almost always go low. So, his fasting sugars usually are 60 to 140, lunch 60 to 130, and supper 100 to 140. He will certainly have values in the high 100s. They are usually in the low 200s, but they come down promptly. EXERCISE: None. 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 CURRENT INSULIN PUMP SETTINGS: Basal Rate: Midnight 1.85, 3 a.m. 1.7, 6 a.m. 2.2, 3 p.m. 1.3, 5:30 p.m. 1.35, 8 p.m. 1.9, and 11 p.m. 1.4 units per hour. Sensitivity Factor: Midnight 25 and 5:30 p.m. 23. Carb Ratio: Midnight 11 and 4:30 p.m. 13. COMPLICATIONS: He is up-to-date with his dentist and eye doctor. Microalbumin less than 14, creatinine 1.0 in 10/2011. He has gastroparesis, but no peripheral neuropathy. He had a recent cardiac catheterization for some chest pain. Has nonocclusive disease with slightly decreased ejection [...] 4.17, on levothyroxine 162.5 mg a day. Clinically, he notes he has been feeling tired at times; little cold intolerance; no constipation or change in his skin or hair, or mood. His stomach has been acting up a bit and he will be in to see Dr. Gonsalez next month. He is doing well with his diabetes. He is still trying to get the glucose sensor. It has been over a year now. We will filled out the paperwork when it comes. 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 Current outpatient prescriptions ordered prior to encounter Medication Sig Dispense Refill ??? amlodipine (NORVASC) 5 mg tablet Take 1 tablet by mouth daily. 30 tablet 11 ??? naproxen sodium (ANAPROX) [...] mouth every 6 hours as needed. ??? [place]-3 Fatty Acids-Vitamin E (FISH OIL) 1,000 mg [...] Approximally 80 units subcutaneous by pump. ??? VERAPAMIL HCL (VERAPAMIL ORAL) Take 240 mg by mouth daily. ??? CALCIUM CARBONATE (CALCIUM 600 ORAL) Take 1,200 mg by mouth daily. ??? GLUCOSAMINE HCL/CHONDRO ROGERS A (GLUCOSAMINE-CHONDROITIN ORAL) Take 3 tablets by mouth daily. ??? multivitamin (THERAGRAN) tablet Take 1 tablet by mouth daily. ??? aspirin 325 mg tablet Take 325 mg by mouth daily. ??? promethazine (PHENERGAN) 25 mg suppository 25 MG = 1 Suppository(s), ME, Once daily,PRN ??? metoprolol tartrate (LOPRESSOR) 50 mg tablet Take 50 mg by mouth daily. Allergies Allergen Reactions ??? Simvastatin ??? Nexium (Esomeprazole Magnesium) Diarrhea Any acid reflux medication causes severe diarrhea On physical exam, blood pressure 136/87 (at home it runs 120/65 to 70), pulse 65, weight 234 pounds, and height 6 feet. In general, he looks well. His skin is smooth and warm and dry. There are no ulcerations. Extremities: No edema. On neurologic exam, he is slightly weak on the left side. Psychiatric: Mood and affect are appropriate. LABORATORY TESTS: As noted above and hemoglobin A1c 7.1%. IMPRESSION: 1. Diabetes. Blood sugar control is fairly good, but Brant is having a lot of hypoglycemia. We are going to lower his basal at 6 a.m. to 2.15 and 3 p.m. to 1.25 and we will adjust his correction factor, midnight, it is going to be 30 and at 5:30 p.m. 28. If he finds the correction factor is off, he knows how to adjust that and he'll let me know if he is having increasing blood sugars. 2. Hypertension. Blood pressure has been well controlled at home. We will just keep an eye on it. 3. Hyperlipidemia is well controlled. 4. Gastroparesis. He follows regularly in GI clinic with Dr. Gonsalez and he will be seeing him soon. PLAN: 1. Adjust insulin as noted above. 2. Follow up in three months with hemoglobin A1c in the quick draw lab. .lab7 documented in this encounter Plan of Treatment Not on filedocumented as of this encounter Procedures Procedure Name Priority Date/Time Associated Comments Diagnosis U ALBUMIN/CRE RATIO Routine 10/10/2011 11:53 AM DM type 1 (yadi melvin Results for this EST mellitus, type 1) procedure are in the results section. CREATININE Routine 10/10/2011 11:49 AM DM type 1 (diabetes R esults for this EST mellitus, type 1) procedure are in the results section. TSH Routine 10/10/2011 11:49 AM DM type 1 (diabetes R esults for this EST mellitus, type 1) procedure are in the results section. LDL CHOLESTEROL, Routine 10/10/2011 11:49 AM DM type 1 (diabet es Results for this DIRECT EST mellitus, type 1) procedure are in the results section. HDL/CHOL PROFILE Routine 10/10/2011 11:49 AM DM type 1 (diabet es Results for this EST mellitus, type 1) procedure are in the results section. HEMOGLOBIN A1C Routine 10/10/2011 11:49 AM DM type 1 (diabetes Results for this EST mellitus, type 1) procedure are in the results section. documented in this encounter Results Microalbumin, urine, random (10/10/2011 11:53 AM EST) P athologist Signature U Creatinine 21 mg/dL CERNER MILLENNIUM U Albumin Conc, <3.0 mg/L CERNER Random MILLENNIUM Alb/Cr Ratio, <14 mcg/mg Cr CERNER Random MILLENNIUM Comment: Reference Range* Random collection (mcg/mg creatinine) Normal ?<30 Microalbuminuria ?? 30 - 300 Clinical Albuminuria ?? >300 *[place] Diabetes Association. Diabetic Nephropathy. Diabetes Care 1997;(Suppl [...] Organization Address City/State/[place] [address] CERNER MILLENNIUM HDL/Cholesterol Profile (10/10/2011 11:49 AM EST) P athologist Signature Chol, Total 118 <=199 mg/dL CERNER MILLENNIUM Comment: Recommendations of the NCEP Adult Treatm ent Panel for the following risk cutoff thresholds for the [place] populatio n: Desirable: <200 mg/dL Borderline High: 200-239 mg/dL High: > or = 240 mg/dL HDL 54 >=40 mg/dL CERNER MILLENNIUM Comment: Reference range: ??Low HDL: ?? < 40 mg/dL ??Normal: ?40-60 mg/dL ??Desirable: > 60 mg/dL MARQUEZ 2001; 285(19):[id number] Chol/HDL Ratio 2.2 ratio CERNER MILLENNI UM Comment: A Cholesterol to HDL ratio below 4:1 is desirable. ??Studies suggest that increased CAD risk occurs at ratios abov e 5 for females and above 6 for men. ? [place] Heart Association ??(htt p://www.americanheart.org) ? Joy Int Med, 1994; 121:641 ? AM J Med, 1998; 105(1A):48S Specimen Anatomical Collection Method Collection Time Receive d Time (Source) Location / / Volume Laterality Blood specimen 10/10/2011 11:49 2 (specimen) AM EST 11:59 AM EST Divya Coles MD CHEMISTRY ORDERABLES Performing Organization Address City/[facility]/ZIP Code Phon e Number [address] [facility] TSH (10/10/2011 11:49 AM EST) P athologist Signature TSH 4.17 0.27 - 4.20 CERNER mcIU/mL [facility] Specimen Anatomical Collection Method Collection Time Receive d Time (Source) Location / / Volume Laterality Blood specimen 10/10/2011 11:49 2 (specimen) AM EST 11:59 AM EST Divya Coles MD CHEMISTRY ORDERABLES Performing Organization Address City/[facility]/ZIP [facility] Phon e Number [address] [facility] LDL Cholesterol, Direct (10/10/2011 11:49 AM EST) P athologist Signature LDL Chol 58 <=99 mg/dL CERNER Direct MILLENNIUM Comment: The National Cholesterol Education Progr am (NCEP) has set the following guidelines for LDL Cholesterol: Reference range: ?? Optimal: ?<100 mg/dL ?? Near Optimal/Above Optimal: ?? 100-1 29 mg/dL ?? Borderline high: ?130-159 mg/dL ?? High: ? 160-189 mg/dL ?? Very high: ?>yi=701 mg/dL MARQUEZ 2001: [id number] Specimen Anatomical Collection Method Collection Time Receive d Time (Source) Location / / Volume Laterality Blood specimen 10/10/2011 11:49 2 (specimen) AM EST 11:59 AM EST Divya Coles MD CHEMISTRY ORDERABLES Performing Organization Address City/State/[place] [address] CERNER MILLENNIUM Creatinine, serum [...] Organization Address City/State/[place] [address] CERNER MILLENNIUM (ABNORMAL) Hemoglobin A1c (10/10/2011 11:49 AM EST) Analysis Performed At [facility] Time Signature Hemoglobin A1C 7.1 (H) 4.3 - 6.1 CERNER % MILLENNIUM Est Avg Gluc 157 mg/dL CERNER MILLENNIUM Comment: eAG equivalents for [...] into estimated average glucose values. ??Diabetes Care 2008:31(8):0463-6778. Specimen Anatomical Collection Method Collection Time Receive d Time (Source) Location / / Volume Laterality Blood specimen 10/10/2011 11:49 2 (specimen) AM EST 11:59 AM EST Divya Coles MD CHEMISTRY ORDERABLES Performing Organization Address City/State/ZIP Code Phon e Number [address] [facility] documented in this encounter Visit Diagnoses Diagnosis DM type 1 (diabetes mellitus, type 1) - Primary Type I (juvenile type) diabetes mellitus without mention of complication, not stated as uncontrolled documented in this encounter Care Teams Assistant Teacher Primary Relationship Specialty Start Date End Date Anna Mullen MD PCP - General 12/03/10 [address] [place] [address] documented as of this encounter
--- OUTSIDE RECORDS SUMMARY | 2022-03-13 18:36 | XMS_ITS | Encounter Summary ---
:1965 Author Organization [facility] Address [facility] [address] [place] [address] Care Team Providers Name Role Phone Meaghan Mullen MD Primary Care Provider Reason for Visit Reason Comments Pancreas Transplant Evaluation Encounter Details Date Type Department Care Team Description 01/29/2012 Office Visit Transplant Eriberto Melgar DM type 1 (diabetes mellitus , type 1) (Primary Dx); [facility] MD Arlyn Hypoglycemia associated with diabetes; [facility] CVA (cerebral infarction); [place], [place] Persistent headaches [id number] TRANSPLANT SURGERY [phone] [place], [place] [address] Social History Tobacco Use Types Packs/Day Years Used Date Never Smoker Smokeless Tobacco: Never Used Alcohol Use Standard Drinks/Week Comments No 0 (1 standard drink = 0.6 oz pure alcoho l) Sex Assigned at Date Recorded Male 05/29/2021 11:28 PM EDT documented as of this encounter Last Filed Vital Signs Vital Sign Reading Time Taken Comments Blood Pressure 113/64 01/29/2012 8:35 AM EDT Pulse 65 01/29/2012 8:35 AM EDT Temperature - - Respiratory Rate - - Oxygen Saturation - - Inhaled Oxygen Concentration - - Weight 105.7 kg (233 lb) 01/29/2012 8:35 AM EDT Height 182.9 cm (6') 01/29/2012 8:35 AM EDT Body Mass Index 31.6 01/29/2012 8:35 AM EDT documented in this encounter Progress Notes Nora Quiroz I, ARTIFICIAL LOG MACHINE OPERATOR - 02/02/2012 8:56 AM EDT Transplant Psychosocial Assessment Date: 01/29/2012 Patient Demographics Patient Name: Richard Hsu Date of : 1965 Patient Address:[address] [place] [address] City/State/Zip: [place], [place] Alternate phone Insurance:[facility] Prescription Policy: Secondary Ins: Prescription co-pay: $0-5 Presenting Problem: Pt presented to clinic with his Tiffani to be evaluated for a pancreas transplant. Past Medical History: Diabetes, pt had a stroke at 11 yo which took 3 years to recover from. Ethnic/Cultural /Spiritual Considerations: Pt belongs to the [employer] in [facility] Family Composition/History: Pt grew up in [place] with his parents and one brother who now lives in [place]. Pt parents and Tiffani's mother live close to the couple. This is the second marriage for both, pt has two biological children from his first marriage, 2 adopted children and Tiffani has two children from her previous marriage. One of Bibiana children live with them and one of pt's daughters spends the arredondo with them (she is 15 yo and lives with her mother in [place]). The rest of the children live in [place] but areall adults. The couple have been together for 5 years, for two and they describe a good relationship. Support System: Pt has excellent support from his family and friends. Pt has not discussed transplant with his children but his parents are aware and feel it may be a good option. Pt's and mother would be able to provide care to the pt post transplant. The couple also belongs to the [employer] [facility] in [facility] and has a good network of friends which may be able to provide added support throughout the transplant process. They would be willing to request assistance as needed. Home/Transportation: Pt and his own their home and have reliable transportation. They do not see distance as a problem. 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. The district has been supportive of his medical needs and they have a sick bank that employees can donate time so pt hopes he will not go without a paycheck after transplant. 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 Both are clearly able to manage the cares, medications and expectations post transplant. Pt plans to return to work post transplant. Financial: The couple is financially stable. Alcohol/Drug Use: Pt has a history of alcohol abuse but he has been sober for 15 years. Mental Health History: Pt has a history of depression and has been prescribed Celexa which has been helpful. He does not see a therapist at this time. Legal History: Denied Advanced Directives: He is in the process of completing. Will bring a copy for [facility] records if he chooses transplant. Stressors/Coping: Pt denied many stressors except financial. The couple is not falling behind financially but not saving as much as they would like. 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 Assessment: Pt is a 46 yo man who presented to clinic with his to gain information and be evaluated for a pancreas transplant. Pt has excellent support and seemed to have the resources for transplant. He and his are gathering information to make a well informed decision about transplant. Pt and his have the ability to manage transplant medications and cares. The couple does not feel they are saving as much money as they would like but are not struggling financially. The couple were easily engaged, very pleasant and appeared motivated to gather the information necessary to gain comfort and confidence in their decision to move forward with transplant. There are no psychosocial concerns related to transplant at this time. Plans: 1. Pt to complete his advanced directives and file with [facility] prior to transplant. 2. SW to provide emotional support as needed 3. SW to provide community resources as needed. Nora Quiroz LCSW TTT Crys Mckay RD - 01/29/2012 2:09 PM EDT January 29, 2012 TRANSPLANT NUTRITION Initial Transplant Note This ad copy writer met with Richard Hsu a 46 y.o. year old male on January 29, 2012 for nutrition assessment as part of pancreas transplant work-up. Patient's , Tiffani, was also present. Diabetic History: Type 1 since the age of 11y.o.; insulin pump and has sensor Dialysis History: No renal involvement Food Record: Noon -> s/w 3-4PM -> crackers or chips 6-7PM -> protein, veg, potato 10-11PM -> chips or crackers Medications/Vit/Min/Herbals of note: Fish oil, 1200mg CaCO3 with D, Glucosamine, Multivit/min supplement Anthropometrics: BMI: Estimated Body mass index is 31.60 kg/(m^2) as calculated from the following: Height as of this encounter: 6' 0(1.829 m). Weight as of this encounter: 233 lb(105.688 kg). IBW: 178# +/-10% (81kg) AIBW: 87.2kg Nutritional Concerns:Appetite is good but capacity is low for large amounts of food at one time. He has big problems with gastroparesis, nausea and bloating. No problems with chewing or swallowing; has issues with constipation. Regular exercise, very active. He enjoys hunting, fishing, woodworking Assessment/Plan: There are no nutritional contraindications to transplant noted. Discussed diet modifications post-pancreas transplant and rationale. Provided printed information as reinforcement of our discussion: Potential Nutrition Issues after Transplant Due to medication Side Effects. Good comprehension verbalized: means for contact provided. Plan communicated to Fur Feeder for Documentation in patient's transplant medical record. Remain available for questions/concerns. Te Rubin [facility] - 01/29/2012 1:25 PM EDT Encounter Date: January 29, 2012 Mr. Richard Hsu is a 46 y.o. male seen for a medication review as part of his pancreas transplant work-up. S: Mr. Hsu confirmed his allergies in the system. He states that he more has an intolerance to nexium & Prilosec where he has severe diarrhea to both these medications. He states that he is able to tolerate the pantoprazole. He states that after taking simvastatin he felt sick. Patient denies the use of any additional OTC or herbal medications. How often do you forget to take one or more of your prescription medications? Patient states never. How often do you decide not to take one or more of your prescription medications (maybe because it causes side effects, is too expensive, or you feel good etc.)? Patient states he doesn't decided not to take his medications. If anything they might be delayed if he is throwing up & usually he is going to the ED. How often do you run out of one or more of your prescription medications before getting a new refill? Patient states never. How often do you have difficulty affording your prescription medications? Patient states not currently. How often does your pharmacy have difficulty filling your prescription medications (maybe because they don't have the medication in stock or they don't have enough to fill your prescription completely)? Patient states this occasionally happens but he usually has the remaining of his prescription within 24 hours. Allergies: Simvastatin, Nexium and Prilosec Current Medications: Current outpatient prescriptions ordered in [facility] Medication Sig Dispense Refill ??? citalopram (CELEXA) 20 mg tablet Take 20 mg by mouth daily. ??? divalproex (DEPAKOTE [...] mg by mouth 2 times daily. ??? Gallatin-3 Fatty Acids-Vitamin E (FISH OIL) 1,000 mg [...] mg suppository 25 MG = 1 Suppository(s), ID, Once daily,PRN Assessment/plan: 1. There are no medication contraindications noted to proceed with transplant surgery. 2. The need for watcher automat long goods medication and potential adjustment of medications post-transplant was discussed. 3. Patient was provided with handout reviewing post-transplant discharge medication costs. 4. Will remain available for any medication questions. TE RUBIN RPH Karey Hoffman MD - 01/29/2012 10:49 AM EDT Transplant Medicine Consultation Richard Guillen Aracelis [phone] 1965 [place]: 46 y.o. old male seen at the request of Dr. MEAGHAN MULLEN MD and CLYATON RHOADES MD for evaluation of pancreas transplant. Past Medical History: DM-I -since age of 11 years -gastroparesis, mild peripheral neuropathy, no nephropathy HTN Depression Hypothyroidism CVA Headache-chronic HLD PSH: Appendectomy Right shoulder surgery Right carpal tunnel surgery History of Present Illness: 46 y/o male who comes in to the transplant clinic today with his spouse for evaluation fora kidney transplant. Patient has history of DM-I since age of 11 years, he has had significant gastroparesis, and mild peripheral neuropathy but no nephropathy or retinopathy. He has been having very low blood sugars, as low as 20-30s occasionally, over last few months he started using sensor since he was having hypoglycemic unawareness. His is a RN and she checks his BS closely, he has not needed to go to hospital within last year for hypoglycemic episode. He does not have symptoms of hypoglycemia even though it is very low. Patient had a stroke when he was 11 years old and had left sided paralysis at that time, this took several years to improve but he still has mild residual left sided weakness. He has had headaches sincehe was a child, this had resolved for decades but started coming back since last 2 years. He is being followed closely by neurology and had MRI/MRA last July which was reported to show no focal abnormalities but ?narrowing of posterior circulation per patient. He has been taking verapamil for thisand when it gets worse he uses Naproxen. Headache occurs few times a week and can last about an hour, nausea but no light sensitivity. He also had twitching thought to be tardive dyskinesia related to u se of Reglan which has resolved after stopping that medicine. Patient also had cardiac cath last year which did not show obstructive CAD. 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 Medications: Current outpatient prescriptions ordered prior to encounter Medication Sig Dispense Refill ??? citalopram (CELEXA) 20 mg tablet Take 20 mg by mouth daily. ??? divalproex (DEPAKOTE [...] mouth every 6 hours as needed. ??? Gallatin-3 Fatty Acids-Vitamin E (FISH OIL) 1,000 mg Cap Take 5,000 mg by mouth daily. ??? Acetone, Urine, Test (ACETONE, URINE, TEST) Strp by [facility].(Non-Drug; Combo Route) route. ??? hydrOXYzine (VISTARIL) 25 [...] mg suppository 25 MG = 1 Suppository(s), ID, Once daily,PRN Allergies / ADRs: Allergies Allergen Reactions ??? Simvastatin ??? Nexium (Esomeprazole Magnesium) Diarrhea Any acid reflux medication causes severe diarrhea Family History: Grand parents had DM No kidney disease or cancer Social History: History Substance Use Topics ??? Smoking status: Never Smoker ??? Smokeless tobacco: Never Used ??? 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 ROS: -no fever, chills, night sweats -no headache, blurring of vision, diplopia -no dysphagia, hearing problems -no chest pain, palpitation, no QUIÑONES, orthopnea -no cough or SOB -no abdominal pain, nausea, vomiting or diarrhea -no rash -no weakness or numbness -no change in mood -no heat or cold intolerance Physical Examination: Filed Vitals: 01/29/12 0835 BP: 113/64 Pulse: 65 Physical Examination: General appearance - alert, well appearing, and in no distress Eyes - pupils equal and reactive, EOMI, no pallor or icterus Nose - normal and patent, no erythema, discharge or polyps Neck - supple, no thyromegaly, no adenopathy Lymphatics - no palpable lymphadenopathy Chest - clear to auscultation, no wheezes, rales or rhonchi, symmetric air entry Heart - normal rate, regular rhythm, normal S1, S2, no murmurs, rubs, clicks or gallops Abdomen - soft, nontender, nondistended, no masses or organomegaly, insulin pump on the [facility] Back exam - full range of motion, no tenderness, palpable spasm or pain on motion, no CVA tenderness Neurological - alert, oriented, normal speech, no focal weakness, loss of sensation, CN II to XII grossly intact Musculoskeletal - no joint tenderness, deformity or swelling Extremities - peripheral pulses normal, no pedal edema, no clubbing or cyanosis Skin - normal coloration and turgor, no rashes, no suspicious skin lesions noted Psych - normal affect Labs: Lab Results Component Value Date WBC 5.9 01/21/2012 RBC 4.50* 01/21/2012 HGB 13.5* 01/21/2012 HCT 38.9* 01/21/2012 MCV 86.4 01/21/2012 MCH 30.0 01/21/2012 MCHC 34.7 01/21/2012 PLATELET 256 01/21/2012 RDWCV 12.1 01/21/2012 Chemistry Component Value Date/Time NA 135 01/21/2012 16:15 K 3.4* 01/21/2012 16:15 CL 99 01/21/2012 16:15 CO2 26 01/21/2012 16:15 BUN 11 01/21/2012 16:15 CREATININE 0.94 01/21/2012 16:15 Component Value Date/Time CALCIUM 8.9 01/21/2012 16:15 ALKPHOS 96 01/21/2012 16:15 AST 23 01/21/2012 16:15 ALT 19 01/21/2012 16:15 BILITOT 0.6 01/21/2012 16:15 A/P: Mr Richard Hsu is ia 46 y/o male with type I DM since age of 11 years with end organ involvementas well as significant hypoglycemia unawareness. He is a deserving candidate for pancreas transplant. The biggest clau to transplant is the concern that his neurological symptoms could worsen with use of calcineurin inhibitors especially tacrolimus, his headache could worsen and there is also risk of worsening of neuropathy and even stroke. Also he will complete the workup for the mass detected in his aortic leaflet. Recommendations: -will start workup for pancreas transplant but he will be temporarily inactivated until he completesneurological workup for ongoing headache, he is going to follow up with Dr Martinez We discussed potential risk of worsening of the neurological symptoms with CNI use, patient understands the need to complete the workup prior to transplant. We also discussed that his gastroparesis mayor may not improve post transplant and he may still benefit from gastric neuro stimulator. He will also follow up with cardiology for the mass in the aortic leaflet but suspect this is likelybenign and unlikely to affect transplant outcome. In the mean time, he is encouraged to check his blood sugars closely, he is using needle sticks periodically despite having a sensor to be sure he is not missing any major hypoglycemic episodes. Needs stress test every 2 years while waiting for transplant. He is up to date with his dental appointments, he needs to see ophthalmology every year. RTC in about 4-6 months once he completes workup with neurology and cardiology. Thank you for allowing me to participate in the care of this interesting patient. I examined the patient, reviewed all of the above findings and assessment of Dr. Hoffman and formulated the recommendations which accurately reflect mine. I believe he is a very deserving candidate and one that would greatly benefit from pancreas transplantation due to frequency of hypoglycemic episodes. That said because his WAREHOUSE PULLER issues have not been resolved I discussed the problems, dexter. Those of the neurologic system associated with Rx. Once his evaluation under the direction of Dr. Martinez is completed we can consider listing and activated him then. Please CC to: MEAGHAN MULLEN MD [address] [place] [address] documented in this encounter Plan of Treatment Not on filedocumented as of this encounter Visit Diagnoses Diagnosis DM type 1 (diabetes mellitus, type 1) - Primary Type I (juvenile type) diabetes mellitus without mention of complication, not stated as uncontrolled Hypoglycemia associated with diabetes Type II or unspecified type diabetes bria litus with other specified manifestations, not stated as uncontrolled CVA (cerebral infarction) Unspecified cerebral artery occlusion wi th cerebral infarction Persistent headaches Headache documented in this encounter Care Teams Plant Engineer Relationship Specialty Start Date End Date Meaghan Mullen MD PCP - General 12/03/10 [address] [place], [place] [id number] documented as of this encounter
--- OUTSIDE RECORDS SUMMARY | 2022-03-13 18:36 | XMS_ITS | Encounter Summary ---
:1965 Author Organization [facility] Address [facility] [place] [address] Care Team Providers Name Role Phone Anna Mullen MD Primary Care Provider Reason for Visit Reason Comments Pancreas Transplant Evaluation Encounter Details Date Type Department Care Team Description 01/29/2012 Office Visit Transplant Leilani Keller, IDDM (insulin [facility] MD dependent diabetes Drive [facility] mellitus) (Primary Dx) [place] [address] TRANSPLANT SURGERY [phone] [place], [place] [address] Social History Tobacco Use Types [...] Time Taken Comments Blood Pressure 113/64 01/29/2012 8:12 AM EDT Pulse 63 01/29/2012 8:12 AM EDT Temperature - - Respiratory Rate - - Oxygen Saturation - - Inhaled Oxygen Concentration - - Weight 106.1 kg (233 lb 14.4 oz) 01/29/2012 8:12 AM EDT Height 182.9 cm (6') 01/29/2012 8:12 AM EDT Body Mass Index 31.72 01/29/2012 8:12 AM EDT documented in this encounter Progress Notes Leilani Keller MD - 02/05/2012 2:25 PM EDT Initial Evaluation: Transplantation Date: 02/05/2012 Patient: Richard Hsu Mr. Richard Hsu is an 46 y.o. male. Patient of Dr. Bhakta. Reason for referral: Evaluation for Pancreas Transplantation. Problem List: Patient Active Problem List Diagnoses Code ??? LBP radiating to right leg 724.2BU ??? Diabetes mellitus 250.00A ??? Stroke-like symptoms 781.99EN ??? 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 Hypertension 401.9AJ ??? Edema 782.3 ??? Gastroparesis due to DM 250.60JD ??? Migraine 346.90A Past Medical History: Past Medical History Diagnosis Date ??? Severe headache ??? Gastroparesis ??? IDDM (insulin dependent diabetes mellitus) ??? HTN (hypertension) ??? Hypothyroid ??? Depression ??? ASCVD (arteriosclerotic cardiovascular disease) ??? Papillary fibroelastoma of heart aortic valve Past Surgical History: Past Surgical History Procedure Date ??? Created by interface [email or web address] Procedure Date: 07/18/2009 ??? Created by interface Entered not Verified Procedure Date: 10/24/2010 ??? Upper gi endoscopy, exam 12/31/2011 UPPER GI ENDOSCOPY performed by CLAYTON BHAKTA at [facility] ??? Upper gi endoscopy, biopsy 12/31/2011 UPPER GASTROINTESTINAL ENDOSCOPY,WITH BIOPSY SINGLE OR MULTIPLE performed by CLAYTON BHAKTA at [facility] ??? Shoulder surgery ??? Carpal tunnel release ??? Appendectomy FAMILY HISTORY: No family history on file. SOCIAL HISTORY: History Substance Use Topics ??? Smoking status: Never Smoker ??? Smokeless tobacco: Never Used ??? Alcohol Use: No history of abuse, stopped 1996 History of Present Illness: HPI Comments: 46 yo male with a history of IDDM with worsening hypoglycemia. He has had multiple blood sugars as low as 20-30. He also has mild neuropathy and retinopathy. No nephropathy. He is very concerned about his risk of hypoglycemia, especially in light of his neurologic issues. He was been eval uated for severe headaches and no specific etiology has been identified. Visit Vitals: BP 113/64 Pulse 63 Ht 182.9 cm (6') Wt 106.096 kg (233 lb 14.4 oz) BMI 31.72 kg/m2 Diagnoses: No diagnosis found. Allergies: Simvastatin, Nexium and Prilosec Immunizations: Most Recent Immunizations Administered Date(s) Administered ??? Influenza Whole 06/11/2009 Current Meds: Scheduled Meds:Current outpatient prescriptions Medication Sig Dispense Refill ??? citalopram (CELEXA) [...] mg by mouth 2 times daily. ??? [place]-3 Fatty Acids-Vitamin E (FISH OIL) 1,000 mg Cap Take 5,000 mg by mouth daily. ??? Acetone, Urine, Test (ACETONE, URINE, TEST) Strp by [facility].(Non-Drug; Combo Route) route. ??? hydrOXYzine (VISTARIL) 25 [...] mg suppository 25 MG = 1 Suppository(s), [place], Once daily,PRN Labs: Lab Results Component Value Date CREATININE 0.94 01/21/2012 K 3.4* 01/21/2012 GLUCOSE 292* 07/04/2010 HCT 38.9* 01/21/2012 WBC 5.9 01/21/2012 ROS: Review of Systems Constitutional: Negative for weight loss. Respiratory: Negative for shortness of breath. Cardiovascular: Negative for chest pain and palpitations. Gastrointestinal: Positive for vomiting, abdominal pain and diarrhea. Neurological: Positive for headaches. Body mass index is 31.72 kg/(m^2). Physical Exam: Physical Exam Constitutional: He is oriented to person, place, and time. He appears well- developed. No distress. HENT: Head: Normocephalic. Neck: Normal range of motion. No thyromegaly present. Cardiovascular: Normal rate, regular rhythm, normal heart sounds and intact distal pulses. Pulmonary/Chest: Effort normal and breath sounds normal. No respiratory distress. Abdominal: Soft. Bowel sounds are normal. He exhibits no distension. No tenderness. He has no guarding. Musculoskeletal: Normal range of motion. He exhibits no edema. Neurological: He is alert and oriented to person, place, and time. Skin: Skin is warm and dry. He is not diaphoretic. Psychiatric: He has a normal mood and affect. Impression: Mr. Richard Hsu is a Good candidate for pancreas transplantation given his significant hypoglycemic symptoms. Advantages and disadvantages of transplantation were reviewed. Discussed the operative procedure and potential complications, particularly in regard to the need for re-operation. I addressed issues of post-operative recovery and follow-up. Lastly I discussed the need for immunosuppressive therapy and the risk associated with this treatment. Recommendations: 1. I am very concerned about his neurologic issues and believe these need to be fully evaluated prior to transplantation. However, this should not stop him from being listed. 2. His cardiac clearance appears to be adequate. Dr. Araiza does recommend a follow-up PALLAVI to assess for stability of the very small value lesion, but this should not preclude transplantation. 3. His gastroparesis is certainly an issue. He may benefit from either gastric pacemaker or j-tube placement. We will coordinate with Dr. Bhakta on this issue and consider further intervention as needed. 4. No surgical contraindications to pancreas transplantation. He appears to have good understanding of his medical condition and the transplant process. 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 Also discussed organ allocation,HLA typing,crossmatch, PRAs, waiting time, as well as cadaveric listing. Immunosuppression, potential side effects of the medications,infection, rejection, explained to patient as well as patients pre and post op expections and responsibilites.Patient understands that medications are for the life of the graft and noncompliance with medications will led to rejection and graft loss. Listing criteria gone over with patient and health maintaince issues while waiting for an Pancreas. Patient understands clinic schedule and where to notify transplant center of medical changes. Patient understands that he will not be listed until work-up requirements are fullfilled.The patient understands that he is responsible for dental and has completed Critical pathway reviewed with patient and length of stay. Surgery explained. Pt seems to understand. Written information given to reinforce our conversation. Both transplant booklet given to patient. I am available for any questions or concerns that come up and have given patient my number. Patient also sent to meet with our transplant financial reporting director to discuss the financial impact of transplantation.Patient also seen by Transplant social workerand entry level management documented in this encounter Plan of Treatment Not on filedocumented as of this encounter Visit Diagnoses Diagnosis IDDM (insulin dependent diabetes mellitu s) - Primary Type II or unspecified type diabetes bria litus without mention of complication, not stated as uncontrolled documented in this encounter Care Teams Trains Service Conductor Relationship Specialty Start Date End Date Anna Mullen MD PCP - General 12/03/10 [address] [place] [address] documented as of this encounter
--- OUTSIDE RECORDS SUMMARY | 2022-03-13 18:37 | XMS_ITS | Encounter Summary ---
:1965 Author Organization [facility] [place] [address] Care Team Providers Name Role Phone Anna Mullen MD Primary Care Provider Encounter Details Date Type Department Care Team Description 02/19/2011 Orders Only Pain Management at L Richard Waldrop MD [facility] [place] [address] PAIN CLINIC [phone] [place], [place] [address] (Wo rk) Social History Tobacco [...] Associated Diagnosis Comme nts FILM LIBRARY Routine 02/19/2011 1:30 PM Results f or this STORAGE ONLY PAIN EDT procedure are in CLINIC C ARM the results section. documented in this encounter Results FILM LIBRARY-STORAGE ONLY PAIN CLINIC C-ARM (02/19/2011 1:30 PM EDT) Specimen (Source) Anatomical Collection Method Collection Time Re ceived Time Location / / Volume Laterality 02/19/2011 1:30 PM EDT Narrative RAD - 01/03/2014 7:49 PM EDT This is a non-reportable exam. Procedure Note Rylan Mccarthy - 01/03/2014Formatting of t his note might be different from the original. This is a non-reportable exam. Richard Peterson MD IM FILM LIBRARY ORDERABLES Performing Organization Address City/State/ZIP Code Phon e Number [facility] [address] [place] [address] documented in this encounter Visit Diagnoses Not on filedocumented in this encounter Care Teams Caterpillar Operator Relationship Specialty Start Date End Date Anna Mullen MD PCP - General 12/03/10 [address] [place] [address] documented as of this encounter
--- OUTSIDE RECORDS SUMMARY | 2022-03-13 18:37 | XMS_ITS | Encounter Summary ---
:1965 Author Organization [facility] [place] [address] Care Team Providers Name Role Phone Anna Mullen MD Primary Care Provider Encounter Details Date Type Department Care Team Description 12/25/2010 Hospital Encounter XRay at [facility], CONV Scoliosis [address] [place] [address] Lamine De La Rosa MD [facility] [place] [address] [place] [address] Social History Tobacco Use Types Packs/Day Years Used Date Never Smoker Smokeless Tobacco: Never Used Alcohol Use Standard Drinks/Week Comments Not Asked 0 (1 standard drink = 0.6 oz pure alcoho l) Sex Assigned at Date Recorded Male 05/29/2021 11:28 PM EDT documented as of this encounter Medications at Time of Discharge Medication Sig Dispensed Refills Start Date End Date levothyroxine (SYNTHROID) Take 37.5 mcg by 0 10/10/2011 75 mcg tablet mouth daily. DOMPERIDONE, BULK, MISC 10 mg by 0 12/25/2010 0 01/21/2012 Misc.(Non-Drug; Combo Route) route 3 times daily. Tadalafil (CIALIS) 2.5 mg Take 2.5 mg by 0 02/19/2011 Tab mouth daily. hydrOXYzine (VISTARIL) 25 Take by mouth 2 0 12/2410/28/2013 mg capsule times daily as needed. naproxen sodium (ANAPROX) Take 550 mg by 0 201006/04/2011 550 mg tablet mouth 2 times daily as needed. hydrochlorothiazide Take 25 mg by mouth 0 08/10/2013 (HYDRODIURIL) 25 mg tablet daily. losartan (COZAAR) 100 mg Take 100 mg by 0 04/28/2011 tablet mouth daily. Patient takes 1/2 of tablet daily. glucagon, human Inject 1 mg as 0 12/24/201002/08 recombinant, 1 mg directed as needed. injection erythromycin (BETTIE-TAB) 250 Take 250 mg by 0 12/2401/16/2011 mg EC tablet mouth 3 times daily. insulin aspart (NOVOLOG) Inject 0 05/11/2012 100 unit/mL injection subcutaneously. 100 units/Ml solution. Approximally 80 units subcutaneous by pump. pravastatin (PRAVACHOL) 40 Take 40 mg by mouth 0 01/08/2011 mg tablet daily. VERAPAMIL HCL (VERAPAMIL Take 240 mg by 0 011 01/15/2012 ORAL) mouth 2 times daily. levothyroxine (SYNTHROID) Take 125 mcg by 0 10/10/2011 125 mcg tablet mouth daily. ranitidine (ZANTAC) 150 mg Take 150 mg by 0 01/16/2011 tablet mouth 2 times daily. URINE ACETONE TEST,STRIPS by [employer].(Non-Drug; 0 02/19/2011 (KETOSTIX MISC) Combo Route) route. As directed. CALCIUM CARBONATE (CALCIUM Take 1,200 mg by 0 09/06/2013 600 ORAL) mouth daily. GLUCOSAMINE HCL/CHONDRO ROGERS Take 3 tablets by 0 09/02/2013 A (GLUCOSAMINE-CHONDROITIN mouth daily. ORAL) multivitamin (THERAGRAN) Take 1 tablet by 0 09/06/2013 tablet mouth daily. aspirin 325 mg tablet Take 325 mg by 0 05/31/2014 mouth daily. CIS Free Text Med - One 1 Strip as 0 10/30/2010 0 01/08/2011 Touch Ultra Test directed, [facility], tests 8 x day CIS Free Text Med - One as directed, Top, 0 10/3001/08/2011 Touch teststrips 7x/day pravastatin (PRAVACHOL) 40 0 1 01/08/2011 mg tablet documented as of this encounter Plan of Treatment Not on filedocumented as of this encounter Procedures Procedure Name Priority Date/Time Associated Diagnosis Comme nts XR SCOLIOSIS OR Routine 12/25/2010 10:01 AM Scoliosis Resul ts for this TOTAL SPINE 2 VIEW EDT procedure are in the results section. documented in this encounter Results XR scoliosis 2 view (12/25/2010 10:01 AM EDT) Anatomical Region Laterality Modality C-spine, T-spine, L-spine N/A Radiographic I maging Specimen (Source) Anatomical Collection Method Collection Time Re ceived Time Location / / Volume Laterality 12/25/2010 10:01 AM EDT Narrative 12/25/2010 5:55 PM EDT SCOLIOSIS SERIES, TWO VIEWS, 12/25/10: ? ? CLINICAL HISTORY: ??Scoliosis. ?? COMPARISON: ??The study is reviewed with out benefit of comparison films. ?? FINDINGS: ??The patient is skeletally ma ture. No anomaly or fracture is identified. There is an S-shaped rotator y scoliosis with a dominant curve in the lumbar spine. The lumbar dextroscoli osis measures approximately 25 degrees when measured from the superior endplate of T12 to the inferior endplate of L4. The curve results in a slight coronal pl ane shift to the left. Procedure Note Neil Herrera MD - 12/25/2010Forma tting of this note might be different from the original. SCOLIOSIS SERIES, TWO VIEWS, 12/25/10: CLINICAL HISTORY: Scoliosis. COMPARISON: The study is reviewed withou t benefit of comparison films. FINDINGS: The patient is skeletally matu re. No anomaly or fracture is identified. There is an S-shaped rotator y scoliosis with a dominant curve in the lumbar spine. The lumbar dextroscoli osis measures approximately 25 degrees when measured from the superior endplate of T12 to the inferior endplate of L4. The curve results in a slight coronal pl ane shift to the left. Lamine Garcia MD IMG DX ORDERABLES documented in this encounter Visit Diagnoses Diagnosis Scoliosis Scoliosis (and kyphoscoliosis), idiopath ic documented in this encounter Care Teams Auto Body Builder Apprentice Relationship Specialty Start Date End Date Anna Mullen MD PCP - General 12/03/10 [address] [place] [address] documented as of this encounter
--- OUTSIDE RECORDS SUMMARY | 2022-03-13 18:37 | XMS_ITS | Encounter Summary ---
:1965 Author Organization [facility] [place] [address] Care Team Providers Name Role Phone Anna Mullen MD Primary Care Provider Reason for Visit Reason Comments Neck Pain Right Arm Pain Low Back Pain follow up to injection Encounter Details Date Type Department Care Team Description 03/17/2011 Office Visit [facility], LBP ra diating to right Edwards leg (Primary Dx) [facility] [address] [place] [place] [facility] [id number] [place] [address] [phone] Social History Tobacco Use Types Packs/Day Years Used Date Never Smoker Smokeless Tobacco: Never Used Alcohol Use Standard Drinks/Week Comments Not Asked 0 (1 standard drink = 0.6 oz pure alcoho l) Sex Assigned at Date Recorded Male 05/29/2021 11:28 PM EDT documented as of this encounter Last Filed Vital Signs Vital Sign Reading Time Taken Comments Blood Pressure - - Pulse - - Temperature - - Respiratory Rate - - Oxygen Saturation - - Inhaled Oxygen Concentration - - Weight 99.8 kg (220 lb) 03/17/2011 11:06 AM EDT Height 182.9 cm (6') 03/17/2011 11:06 AM EDT Body Mass Index 29.84 03/17/2011 11:06 AM EDT documented in this encounter Progress Notes [facility] MD - 03/17/2011 11:35 AM EDT Mr. Hsu is a pleasant 45-year-old fit-appearing gentleman presents with LBP and Right leg pain, who has had diabetes since he was a child he is presently using an insulin pump. 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 He is quiet active despite the co-morbidities, and is a high risk surgical canbdidate. He was seen in my clinic 6 weeks back and was suggested LESI. This helped pain relief for about 4 weeks and then started getting worse. He came today to ask for surgical intervention. All his examination and symptoms remains the same as in previous visit. I have reviewed his x-rays and MRI once again today. A/P: Any surgical intervention to address his degn scoliosis with multilevel disc degn and herniation would require 3 ot 4 level fusion from sacrum upwards. Considering the magnitude of surgery, and his co-morboidities, it is preferable to try LESI again, because it helped him for a good 4 weeks. He may try up to 3 LESI in one year time. He agrees with this Rx plan, and is rescheduled for repeat LESI. He will be reviewed in my clinic only on PRN basis. documented in this encounter Plan of Treatment Not on filedocumented as of this encounter Visit Diagnoses Diagnosis LBP radiating to right leg - Primary Lumbago documented in this encounter Care Teams Biomass Plant Technician Relationship Specialty Start Date End Date Anna Mullen MD PCP - General 12/03/10 [address] [place] [address] documented as of this encounter
--- OUTSIDE RECORDS SUMMARY | 2022-03-13 18:37 | XMS_ITS | Encounter Summary ---
:1965 Author Organization [facility] [place] [address] Care Team Providers Name Role Phone Anna Mullen MD Primary Care Provider Encounter Details Date Type Department Care Team Description 01/02/2011 Hospital Encounter MRI at [facility], CONV Low back pain [facility] Lamine Garcia MD [facility] [place] [address] [place] [address] Social History Tobacco Use Types Packs/Day [...] 2 times daily. URINE ACETONE TEST,STRIPS by [employer].(Non-Drug; 0 02/19/2011 (KETOSTIX MISC) Combo Route) route. [...] 10/30/2010 0 01/08/2011 Touch Ultra Test directed, [facility], tests 8 x day CIS Free Text Med - One as directed, Top, 0 10/3001/08/2011 Touch teststrips 7x/day pravastatin (PRAVACHOL) 40 0 1 01/08/2011 mg tablet documented as of this encounter Miscellaneous Notes Miscellaneous - Provider, Scanning - 01/23/2011 2:53 PM EDT documented in this encounter Plan of Treatment Not on filedocumented as of this encounter Procedures Procedure Name Priority Date/Time Associated Diagnosis Comme nts MRI LUMBAR SPINE Routine 01/02/2011 4:13 PM Low back pain Resu lts for this WITHOUT CONTRAST EDT procedure a re in the results section. documented in this encounter Results MRI lumbar spine without contrast (01/02/2011 4:13 PM EDT) Anatomical Region Laterality Modality L-spine Magnetic Resonance Specimen (Source) Anatomical Collection Method Collection Time Re ceived Time Location / / Volume Laterality 01/02/2011 4:13 PM EDT Impressions 01/03/2011 9:19 AM EDT IMPRESSION: ?? 1. ??Dextroscoliosis with multilevel deg enerative changes. 2. ??L4-L5 right paracentral disc extrus ion, resulting in severe canal stenosis and bfoy-ix-ecuzxahm bilateral neural fo raminal narrowing. ?? Film and interpretation reviewed by the attending Narrative 01/03/2011 9:19 AM EDT MR LUMBAR SPINE WITHOUT GADOLINIUM: INDICATION: ??Back pain with right radic ular pain. COMPARISON: ??Comparison is made to plai n radiograph dated 12/25/2010. TECHNIQUE: ??Routine MR of the lumbar sp ine without contrast. FINDINGS: ??There is a lumbar dextroscol iosis with a compensatory levoscoliosis. ?? There are multilevel degenerative change s characterized by loss of normal disc signal and endplate changes. T he conus terminates at L1. L1-L2: ??Disc bulge, eccentric to the ri ght, with facet arthropathy resulting in mild neural foraminal narrowing, left gr eater than right. L2-L3: ??Disc bulge, eccentric to the le ft, with mild left greater than right neural foraminal narrowing; associated f acet arthropathy. L3-L4: ??Disc bulge with facet arthropat hy resulting in mild neural foraminal narrowing bilaterally. L4-L5: ??The right paracentral disc extr usion with cranial migration resulting in severe canal narrowing and mild-to-mo derate bilateral neural foraminal narrowing. ??There are also facet hypert rophic changes. L5-S1: ??Disc bulge and facet hypertroph ic changes resulting in severe right and mild left neural foraminal narrowing. ?? Procedure Note Iraj Wood MD - 01/03/2011Formatti ng of this note might be different from the original. MR LUMBAR SPINE WITHOUT GADOLINIUM: INDICATION: Back pain with right radicul ar pain. COMPARISON: Comparison is made to plain radiograph dated 12/25/2010. TECHNIQUE: Routine MR of the lumbar spin e without contrast. FINDINGS: There is a lumbar dextroscolio sis with a compensatory levoscoliosis. There are multilevel degenerative change s characterized by loss of normal disc signal and endplate changes. T he conus terminates at L1. L1-L2: Disc bulge, eccentric to the righ t, with facet arthropathy resulting in mild neural foraminal narrowing, left gr eater than right. L2-L3: Disc bulge, eccentric to the left , with mild left greater than right neural foraminal narrowing; associated f acet arthropathy. L3-L4: Disc bulge with facet arthropathy resulting in mild neural foraminal narrowing bilaterally. L4-L5: The right paracentral disc extrus ion with cranial migration resulting in severe canal narrowing and mild-to-mo derate bilateral neural foraminal narrowing. There are also facet hypertro phic changes. L5-S1: Disc bulge and facet hypertrophic changes resulting in severe right and mild left neural foraminal narrowing. IMPRESSION IMPRESSION: 1. Dextroscoliosis with multilevel degen erative changes. 2. L4-L5 right paracentral disc extrusio n, resulting in severe canal stenosis and quvy-pv-fxpimvbh bilateral neural fo raminal narrowing. Film and interpretation reviewed by the attending Lamine Garcia MD IMG MRI ORDERABLES documented in this encounter Visit Diagnoses Diagnosis Low back pain Lumbago documented in this encounter Care Teams Fire Lieutenant Relationship Specialty Start Date End Date Anna Mullen MD PCP - General 12/03/10 [address] [place] [address] documented as of this encounter
--- OUTSIDE RECORDS SUMMARY | 2022-03-13 18:37 | XMS_ITS | Encounter Summary ---
:1965 Author Organization [facility] [place] [address] Care Team Providers Name Role Phone Kj Beltran MD Primary Care Provider [phone] Encounter Details Date Type Department Care Team Description 07/04/2010 Orders Only Lab [facility] Unique pham [place] [address] [place] [address] [phone] (Wo rk) Social History Tobacco Use Types Packs/Day Years Used Date Never Assessed Sex Assigned at Date Recorded Male 05/29/2021 11:28 PM EDT documented as of this encounter Plan of Treatment Not on filedocumented as of this encounter Procedures Procedure Name Priority Date/Time Associated Comments Diagnosis VITAMIN D, Routine 07/04/2010 9:24 AM Results f or this 25-HYDROXY EDT procedure are i n the results section. HEMOGLOBIN A1C RUTH 07/04/2010 9:24 AM Results for this EDT procedure are i n the results section. BASIC METABOLIC RUTH 07/04/2010 9:24 AM Result s for this PANEL (NON-FASTING) EDT procedur e are in the results section. documented in this encounter Results (ABNORMAL) VITAMIN D 25 HYDROXY (07/04/2010 9:24 AM EDT) P athologist Signature 25-Hydroxy D2 <4.0 ng/mL CERNER MILLENNIUM Comment: Test Performed by: [place] [address] Cable Former: Sarita Beach, Ph. D. 25-Hydroxy D3 24 ng/mL [facility] KEONIU Bruce Comment: Test Performed by: [place] [address] Cable Former: Sarita Beach, Ph. D. 25-OH Vit D Total 24 (L) ng/mL [facility] MILLE NNIUM Comment: Interpretation: 10-24 (mild to moderate deficiency) -- REFERENCE VALUE -- 25-HYDROXY D TOTAL (D2+D3) Optimum levels in the normal population are 25-80 Test Performed by: [place] [address] Cable Former: Sarita Beach, Ph. D. Specimen Anatomical Collection Method Collection Time Receive d Time (Source) Location / / Volume Laterality Blood specimen 07/04/2010 9:24 AM 010 (specimen) EDT 11:40 AM EDT Una Lassiter APRN CHEMISTRY ORDERABLES Performing Organization Address City/State/[place] [address] [facility] (ABNORMAL) HEMOGLOBIN A1C (07/04/2010 9:24 AM EDT) Analysis Performed At Patho logist Time Signature Hemoglobin A1C 8.4 (H) 4.3 - 6.1 CERNER % MILLENNIUM Est Avg Gluc 194 mg/dL CERNER MILLENNIUM Comment: eAG equivalents for HbA1c percentages: HbA1c(%) ?eAG(mg/dL) 6.0 ?126 6.5 ?140 7.0 ?154 7.5 ?169 8.0 ?183 8.5 ?197 9.0 ?212 9.5 ?226 10.0 ? 240 Limitations: The eAG calculation has not been validated on women, individuals below 18 years old and above 70 years old, and individuals with hemoglobinopathies. Additional resources are available on [facility] ADA website: ??http://professional.diabetes.org/gluc osecalculator.aspx Reference: Edinson GRISSOM, Nathaniel J, Ari R, et al. ??Tr anslating the A1C assay into estimated average glucose values. ??Diabetes Care 2008:31(8):0080-6785. Specimen Anatomical Collection Method Collection Time Receive d Time (Source) Location / / Volume Laterality Blood specimen 07/04/2010 9:24 AM 010 9:57 (specimen) EDT AM EDT Una Lassiter APRN CHEMISTRY ORDERABLES Performing Organization Address City/State/[place] [address] CERNER MILLENNIUM (ABNORMAL) BASIC METABOLIC PANEL (NON-FASTING) (07/04/2010 9:24 AM EDT) P athologist Signature Glucose Lvl 292 (H) <=199 CERNER mg/dL MILLENNIUM Comment: Diabetes: >=200 mg/dL plus symp toms BUN 7 (L) 10 - 20 mg/dL CERNER MILLENNIU M Creatinine 0.87 0.80 - 1.50 mg/dL CERNER MILL ENNIUM Sodium 136 135 - 145 mmol/L CERNER [...] LALA NIUM Estimated GFR >60 >=60 CERNER LARRYENNIU M Comment: The National Kidney Disease Education Pr ogram (NKDEP) has recommended all laboratories report estimated GFR (eGFR) along with plasma creatinine measurements to assist you with recognit ion of early kidney disease. Caveats: ??Plasma creatinine should be a t steady-state (unchanged within the past week). ??Patient age > = 18 years, and for Americans multiply eGFR by 1.2. At present, NKDEP does NOT recommend usi [...] Location / / Volume Laterality Blood specimen 07/04/2010 9:24 AM 010 9:57 (specimen) EDT AM EDT Una Lassiter APRN CHEMISTRY ORDERABLES Performing Organization Address City/State/[place] [address] FARNAZ HERBERTIUM documented in this encounter Visit Diagnoses Not on filedocumented in this encounter Care Teams Industrial Maintenance Millwright Relationship Specialty Start Date End Date Kj Beltran MD PCP - General 07/23/10 12/02/[address] [place] [address] [place] [address] documented as of this encounter
--- OUTSIDE RECORDS SUMMARY | 2022-03-13 18:37 | XMS_ITS | Encounter Summary ---
:1965 Author Organization [facility] [place] [address] Care Team Providers Name Role Phone Kj Beltran MD Primary Care Provider [phone] Encounter Details Date Type Department Care Team Description 08/13/2010 Hospital Encounter ZUNSCHEDULED Diana Wilkerson Jr., MD [facility] DR ORTHOPAEDIC SURG [place] [phone] (Wo rk) Social History Tobacco Use Types Packs/Day Years Used Date Never Assessed Sex Assigned at Date Recorded Male 05/29/2021 11:28 PM EDT documented as of this encounter Plan of Treatment Not on filedocumented as of this encounter Visit Diagnoses Not on filedocumented in this encounter Care Teams Loan Operations Manager Relationship Specialty Start Date End Date Kj Beltran MD PCP - General 07/23/10 12/02/[address] [place] [address] [place] [id number] documented as of this encounter
--- OUTSIDE RECORDS SUMMARY | 2022-03-13 18:37 | XMS_ITS | Encounter Summary ---
:1965 Author Organization [facility] [place] [address] Care Team Providers Name Role Phone Anna Mullen MD Primary Care Provider Reason for Visit Reason Comments Backache Right leg pain Encounter Details Date Type Department Care Team Description 04/28/2011 Office Visit [facility] at [facility] Lumba r radicular pain (Primary Dx); [facility] [place]acic or lumbosacral neuritis or radi culitis, unspecified [facility] [address] [place] [facility] [id number] [place] [address] [phone] Social History Tobacco Use Types Packs/Day Years Used Date Never Smoker Smokeless Tobacco: Never Used Alcohol Use Standard Drinks/Week Comments Not Asked 0 (1 standard drink = 0.6 oz pure alcoho l) Sex Assigned at Date Recorded Male 05/29/2021 11:28 PM EDT documented as of this encounter Last Filed Vital Signs Vital Sign Reading Time Taken Comments Blood Pressure 131/84 04/28/2011 8:07 AM EDT Pulse 62 04/28/2011 8:07 AM EDT Temperature - - Respiratory Rate - - Oxygen Saturation 99% 04/28/2011 8:07 AM EDT Inhaled Oxygen Concentration - - Weight 101.6 kg (224 lb) 04/28/2011 7:31 AM Patient rep mike EDT Height 188 cm (6' 2) 04/28/2011 7:31 AM Patient repor cate EDT Body Mass Index 28.76 04/28/2011 7:31 AM EDT documented in this encounter Patient Instructions Patient InstructionsTatyana Pineda RN - 04/28/2011 8:05 AM EDT [facility] Discharge Instructions: You were seen by Dr. Primo Peterson MD who performed transforaminal injection. [x] You may resume your [...] Care Provider. You received the following medications: Depo-Medrol 80 mg and Lidocaine . During regular business hours, please phone the [...] or proceed to your local emergency department. LISA Wu documented in this encounter Progress Notes Tatyana Pineda RN - 04/28/2011 7:38 AM EDT Pre-Procedure Screening Questions: 1. Status: No 2. 3. Patient states they have a national dedicated truck driver to transport after procedure? Yes 4. Patient taking antibiotics at present? No 5. NPO per [facility] Management [facility] protocol? No 6. 7. Patient diabetic: Yes __ borderline (not treated with medications) __ managed with oral medications _x_ managed with injected medications- Insulin pump 8. Patient routinely taking anticoagulants ? No Date stopped Current INR Patient Vital Signs documented in Doc Flowsheets associated with this encounter. Patient Discharge Instructions were reviewed with patient and copy provided to patient. documented in this encounter Procedure Notes Primo Peterson MD - 04/28/2011 8:17 AM EDTAssociated Order(s): TRANSFORAMINAL INJECTION Pre-Procedure Diagnose(s): Lumbar radicular pain LUMBAR / SACRAL TRANSFORAMINAL INJECTION Date of Service: 04/28/2011 Patient: Richard sHu Provider: PRIMO PETERSON MD Richard Hsu has been referred to the [facility] Management [facility] for a transforaminal nerve root block and steroid injection. COMMENTS: The pt had one ROBIN with some good temporary rellief. 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 Mr. Hsu was interviewed and the medical record reviewed. There were no medical, pharmacologic, radiographic or other structural contraindications to attempting fluoroscopically guided transforaminal nerve root block and epidural steroid injection. Risks and expected side effects as well as potential benefit of the procedure were reviewed withMr. Hsu , and his voiced concerns addressed. The printed consent form was signed and witnessed. Standard time-out procedure was performed. Mr. Hsu was placed in the prone position on the fluoroscopy table and automated blood pressure cuff and pulse oximeter applied. Fluoroscopy was utilized to identify the right neural foramen between L4 andL5, L5 and S1. A skin chantelle was made for the needle insertion site. A Chlorhexadine prep was carried out, and sterile drapes were applied. Local anesthesia was achieved in the skin and subcutaneous tissues. A 22 gauge curved tip spinal needle was then inserted, advanced with fluoroscopic guidance into the neural foramen, confirmed on the lateral view. After negative aspiration, 1 ml of Omnipaque 240 was injected at each level confirming position in A/P and lateral views. This showed a good spread of dye transforaminally into the epidural space. There was no vascular update with contrast injection under continuous fluoroscopy. 40 mg of Depo-Medrol was injected, followed by 0.5ml of 1% Xylocaine flush for the nerve root block, as well. There was no unusual discomfort expressed by Mr. Hsu . The needle was withdrawn. The patient tolerated the procedure well. A Band-Aid was applied. Mr. Hsu's vital signs were stable throughout the procedure and were as recorded in nursing records. If given, dosages of intravenous drugs for anxiolysis and analgesia were documented in nursing records. Follow up plans and appointments were discussed with Mr. Hsu. Post procedure instruction was given as documented in nursing records and he was discharged in the care of an identified national dedicated truck driver. COMMENTS: He will f/u with Dr. Diana. If he has good relief but does last either this or the ROBIN can be repeated. CC: ANNA MULLEN MD @PCPADD@ documented in this encounter Miscellaneous Notes Miscellaneous - Hemant, Street Car Mechanic - 05/02/2011 9:44 AM EDT documented in this encounter Plan of Treatment Not on filedocumented as of this encounter Results TRANSFORAMINAL INJECTION (04/28/2011 8:18 AM EDT) Primo Peterson MD PROCEDURE/MINOR SURGICAL ORD ERABLES documented in this encounter Visit Diagnoses Diagnosis Lumbar radicular pain - Primary Thoracic or lumbosacral neuritis or radi culitis, unspecified Thoracic or lumbosacral neuritis or radi culitis, unspecified documented in this encounter Administered Medications Inactive Administered Medications - up to 3 most recent administrations Medication Order MAR Action Action Date Dose Rate Site iohexol (OMNIPAQUE) injection 50 mL Given 04/28/2011 8:10 AM EDT 2 mLs 50 mL, Intravenous, ONCE PRN, 1 dose, Starting on Thu04/28/11 at 0810, Until Thu04/28/11 at 0810, Per Protocol, Routine methylPREDNISolone acetate (depo-MEDROL) Given 04/28/2011 8:30 A M EDT 80 mg injection 40 mg 40 mg, Intramuscular, ONCE, 1 dose, On Thu04/28/11 at 0830, Routine documented in this encounter Care Teams Beveller Operator Relationship Specialty Start Date End Date Anna Mullen MD PCP - General 12/03/10 [address] [place] [address] documented as of this encounter
--- OUTSIDE RECORDS SUMMARY | 2022-03-13 18:37 | XMS_ITS | Encounter Summary ---
:1965 Author Organization [place] [address] Care Team Providers Name Role Phone Anna Mullen MD Primary Care Provider Encounter Details Date Type Department Care Team Description 02/21/2011 Hospital Encounter Non-Invasive Cardiology CLINIC, DR CON[facility] Lab Tiffani FreemanRafaelWilner Delgadillo MD [facility] [place] [address] [place] [address] Social History Tobacco Use Types Packs/Day Years Used Date Never Smoker Smokeless Tobacco: Never Used Alcohol Use Standard Drinks/Week Comments Not Asked 0 (1 standard drink = 0.6 oz pure alcoho l) Sex Assigned at Date Recorded Male 05/29/2021 11:28 PM EDT documented as of this encounter Medications at Time of Discharge Medication Sig Dispensed Refills Start Date End Date ibuprofen (ADVIL;MOTRIN) Take 800 mg by 0 10/10/2011 800 mg tablet mouth every 6 hours as needed. traMADol (ULTRAM) 50 mg Take 100 mg by 0 10/18/2013 tablet mouth 2 times daily. Jet-3 Fatty Take 5,000 mg by 0 01/08/201109/06 Acids-Vitamin E (FISH OIL) mouth daily. 1,000 mg Cap Acetone, Urine, Test by Misc.(Non-Drug; 0 09/02/2013 (ACETONE, URINE, TEST) Combo Route) route. Strp levothyroxine (SYNTHROID) Take 37.5 mcg by 0 [...] recombinant, 1 mg directed as needed. injection insulin aspart (NOVOLOG) Inject 0 05/11/2012 100 unit/mL injection subcutaneously. 100 units/Ml solution. Approximally 80 units subcutaneous by pump. VERAPAMIL HCL (VERAPAMIL Take 240 mg by 0 011 01/15/2012 ORAL) mouth 2 times daily. levothyroxine (SYNTHROID) Take 125 mcg by 0 10/10/2011 125 mcg tablet mouth daily. CALCIUM CARBONATE (CALCIUM Take 1,200 mg [...] on filedocumented in this encounter Care Teams Law Tutor Relationship Specialty Start Date End Date Anna Mullen MD PCP - General 12/03/10 [address] [place] [address] documented as of this encounter
--- OUTSIDE RECORDS SUMMARY | 2022-03-13 18:37 | XMS_ITS | Encounter Summary ---
:1965 Author Organization [facility] [place] [address] Care Team Providers Name Role Phone Anna Mullen MD Primary Care Provider Encounter Details Date Type Department Care Team Description 07/21/2011 Hospital Encounter Same Day Program at DueñasRaghav Lazaro MD [facility] [place] [address] LBP radiating to Jameel Camacho MD [facility] [place] [address] [place] [id number] Social History Tobacco Use Types Packs/Day Years Used Date Never Smoker Smokeless Tobacco: Never Used Alcohol Use Standard Drinks/Week Comments Not Asked 0 (1 standard drink = 0.6 oz pure alcoho l) Sex Assigned at Date Recorded Male 05/29/2021 11:28 PM EDT documented as of this encounter Last Filed Vital Signs Vital Sign Reading Time Taken Comments Blood Pressure 114/66 07/21/2011 11:46 AM EST Pulse 60 07/21/2011 11:46 AM EST Temperature 36.4 ??C (97.5 ??F) 07/21/2011 10:24 AM EST Respiratory Rate 16 07/21/2011 11:46 AM EST Oxygen Saturation 99% 07/21/2011 11:46 AM EST Inhaled Oxygen Concentration - - Weight 103 kg (227 lb) 07/21/2011 6:21 AM EST Height 182.9 cm (6') 07/21/2011 6:21 AM EST Body Mass Index 30.79 07/21/2011 6:21 AM EST documented in this encounter Discharge Instructions Discharge InstructionsVashti Madsen RN - 07/21/2011 10:38 AM EST Activity If you are discharged the same day as your procedure, do not drive yourself home. Arrange to have another person drive. You may walk around when you get home, but keep your activity at a minimum until the morning. Do not bend over, strain, or lift heavy objects for 24 hours after the procedure. Do not participatein active sports for 48 hours. You may engage in sexual activity after 48 hours. These restrictions will not apply if the catheter was placed in a blood vessel in your arm. Catheter Insertion Area Care Take the band-aid off the catheter insertion area the morning following the procedure. You may take a shower if you wish. Wash the area with soap and water. Look for signs of infection over the next several days. A little spot of blood at the catheter insertion area is not unusual. A bruise or small lump under the skin is normal; they generally disappear in 3-4 days. For the first several days at home if you cough or sneeze, hold your groin to help prevent bleeding. Expect some mild tenderness over the area where the catheter was inserted. You will notice this after the local anesthetic (numbing medicine) wears off. This should improve during the 24-48 hours afterthe procedure. Take tylenol if needed. Contact your doctor if the discomfort worsens. Problems to Watch For If there is bright red blood flowing from the catheter insertion area: *stop what you are doing and lie down *Hold pressure steadily on the area for 15 minutes *Call for Help *If the bleeding does not stop in 15 minutes call 911 for an ambulance. If there is swelling with black and blue color at the catheter insertion area, there may be bleeding inside. Contact the doctor if there is any increase in size. Look at the insertion site for the first few days at home. Signs of infection are: *redness *Swelling *Yellow, white, green or brown foul smelling drainage. *increased soreness If you think there is an infection, take your temperature. Then call your doctor. The limb on the side where you had your catheterization should look and feel normal in its color, sensation, and temperature. If your leg becomes cool, pale, blue or changing color with numbness and tingling, contact your doctor. If you feel faint or dizzy, lie down with your feet elevated. Have someone call the doctor. If you are alert, drink fluids. How to Deal with Chest pain If you had only the cardiac catheterization, treat any angina or chest discomfort as instructed. Stop what you are doing, and sit or lie down. If prescribed, take nitroglycerin under your tongue. If the angina isn't relieved, take another nitroglycerine in 5 minutes. After another 5 minutes, a third ni troglycerine may be taken. If the angina isn't improved you should call for an ambulance to bring you to the nearest hospital emergency room. If your angina is more frequent or more sever than before, contact your doctor. We usually would not expect to have angina after an angioplasty. If you do get angina, treat it as you did before but also contact your doctor. Return to Work The doctor will usually have told you when to return to work. If you do not perform heavy physical labor, most people can return to work in a few days. Diet Follow your previous diet unless otherwise instructed. Cardiac Risk Factors If you have coronary artery disease, it is important that you help control it by reducing your cardiac risk factors. If you smoke, we urge you to stop now. If you think this is going to be a problem, let us know so that we may help you. We have dieticians who can help you learn about low fat, low cholesterol diet. Cardiac rehabilitation programs can help you set up a regular exercise program. Work with your doctor if you have high blood pressure or sugar diabetes to keep these under control. Medications ____Take your usual medications ____Medication changes: If you are taking medicines prescribed by your doctor, do not take any bqjr-wss-ndydqab medicines orherbal preparations without first discussing this with your doctor or pharmacist. There is the possibility of side effect and interactions when these are combined. Follow up Care Who to Call with Questions or Problems If there are any questions or problems that you think might be related to your cardiac cath or angioplasty, contact the body cleaner manager information by calling [facility] at [phone]. 1. You may have received medication before and/or during your procedure, which affects judgment andreaction time. 2. Do not drive, operate machinery, [...] Sig Dispensed Refills Start Date End Date naproxen sodium (ANAPROX) Take 1 tablet by 60 tablet 12/201001/21/2012 550 mg tablet mouth 2 times daily as needed (for breakthrough headaches). losartan (COZAAR) 100 mg Take by mouth 0 08/10/2013 tablet daily. pravastatin (PRAVACHOL) 40 Take 40 mg by mouth 0 09/02/2013 mg tablet daily. ibuprofen (ADVIL;MOTRIN) Take 800 mg by 0 10/10/2011 800 mg tablet mouth every 6 hours as needed. traMADol (ULTRAM) 50 mg Take 100 mg by 0 10/18/2013 tablet mouth 2 times daily. [place]-3 Fatty Take 5,000 mg by 0 01/08/201109/06 [...] 0 08/10/2013 (HYDRODIURIL) 25 mg tablet daily. glucagon, human Inject 1 mg [...] documented as of this encounter H&P Notes Froy Hampton MD - 07/21/2011 7:51 AM EST Complete Adult Pre-Procedural H&P Patient Name: Richard Hsu : [id number] y.o. MR#: [id number] Chief Complaint: Chest Pain Planned Procedure: LHC and coronary angiography History of Present Illness: HPI I have reviewed and updated as necessary the Medical, Surgical, Family, and Social History captured within the EMR. I have reviewed and updated as necessary the patient's allergies and current medication list within the EMR. Review of Systems: Review of Systems Physical Exam: Filed Vitals: 07/21/11 0607/21/11624 BP: 95/61 113/71 Pulse: 57 Temp: 36.5 ??C (97.7 ??F) TempSrc: Oral Resp: 16 Height: 182.9 cm (6') Weight: 102.967 kg (227 lb) SpO2: 97% Physical Exam AOX3,NAD CTAB RR,S1,S2 Assessment and Plan: Chest pain with abnormal stress test in patient with DM,HTN. Proceed with [facility] as planned. FROY HAMPTON MD 07/21/2011 documented in this encounter Procedure Notes Provider, Scanning - 07/25/2011 4:43 PM ESTAssociated Order(s): SCAN DOC: CARDIAC CATH; SCAN DOC: CARDIAC CATH documented in this encounter Miscellaneous Notes Miscellaneous - Provider, Scanning - 07/21/2011 3:00 PM EST Miscellaneous - Provider, Scanning - 07/21/2011 6:16 AM EST documented in this encounter Plan of Treatment Scheduled Orders Name Type Priority Associated Diagnoses Order S chedule EKG 12 Lead ECG STAT LBP radiating to right leg O ne Time for 1 Occurrences starting 2010 until 07/21/2011 documented as of this encounter Procedures Procedure Name Priority Date/Time Associated Comments Diagnosis CARDIAC CATH SCAN 07/25/2011 4:43 Results for this PM EST procedure are i n the results section. POCT GLUCOSE Routine 07/21/2011 10:24 Results for this AM EST procedure are i n the results section. POCT GLUCOSE Routine 07/21/2011 9:35 Results for this AM EST procedure are i n the results section. CARDIAC CATHETERIZATION 07/21/2011 8:15 CP,ABN STRESS AM EST POCT GLUCOSE Routine 07/21/2011 6:41 Results for this AM EST procedure are i n the results section. documented in this encounter Results SCAN DOC: CARDIAC CATH (07/25/2011 4:43 PM EST) Narrative 07/25/2011 8:07 PM EST Procedure Note Provider, Scanning - 07/25/2011 4:43 PM EST Scanning Provider MEDIA MGR SCAN EXT ORDR/RSLT POCT GLUCOSE LAB USE ONLY (07/21/2011 10:24 AM EST) P athologist Signature POC Glucose 137 60 - 199 CERNER mg/dL [facility] Comment: Supplemental ranges: <110 mg/dL before meals <200 mg/dL all other times of the day Specimen Anatomical Collection Method Collection Time Receive d Time (Source) Location / / Volume Laterality Blood specimen 07/21/2011 10:24 1 (specimen) AM EST 10:24 AM EST Raghav Dueñas MD POINT OF CARE TEST ORDERABLE S Performing Organization Address City/State/ZIP Code Phon e Number [address] [place] POCT GLUCOSE LAB USE ONLY (07/21/2011 9:35 AM EST) P athologist Signature POC Glucose 137 60 - 199 CERNER mg/dL [place] Comment: Supplemental ranges: <110 mg/dL before meals <200 mg/dL all other times of the day Specimen Anatomical Collection Method Collection Time Receive d Time (Source) Location / / Volume Laterality Blood specimen 07/21/2011 9:35 AM 011 9:35 (specimen) EST AM EST Raghav Dueñas MD POINT OF CARE TEST ORDERABLE S Performing Organization Address City/State/ZIP Code Phon e Number [address] [place] POCT GLUCOSE LAB USE ONLY (07/21/2011 6:41 AM EST) P athologist Signature POC Glucose 147 60 - 199 CERNER mg/dL [place] Comment: Supplemental ranges: <110 mg/dL before meals <200 mg/dL all other times of the day Specimen Anatomical Collection Method Collection Time Receive d Time (Source) Location / / Volume Laterality Blood specimen 07/21/2011 6:41 AM 011 6:41 (specimen) EST AM EST Raghav Dueñas MD POINT OF CARE TEST ORDERABLE S Performing Organization Address City/State/ZIP Code Phon e Number [address] [place] documented in this encounter Visit Diagnoses Diagnosis LBP radiating to right leg Lumbago documented in this encounter Administered Medications Inactive Administered Medications - up to 3 most recent administrations Medication Order MAR Action Action Date Dose Rate Site diaZEPam (VALIUM) tablet 5 mg Given 07/21/2011 7:48 AM EST 5 mg 5 mg, Oral, ONCE, 1 dose, On Thu07/21/11 at 0630, Cath (Day of Procedure), Routine diphenhydrAMINE (BENADRYL) tablet 25 mg Given 07/21/2011 7:49 AM EST 25 mg 25 mg, Oral, ONCE, 1 dose, On Thu07/21/11 at 0630, Cath (Day of Procedure), Routine sodium chloride 0.9% Rate/Dose Change 07/21/2011 8:15 AM EST 50 mL/hr 50 mL/hr infusion 200 mL/hr, Intravenous, CONTINUOUS, Starting on Thu07/21/11 at 0630, Until Thu07/21/11 at 1006, Cath (Day of Procedure) sodium chloride 0.9% Rate/Dose Change 07/21/2011 11:50 AM 304 mL/hr 304 mL/hr infusion EST 200 mL/hr, Intravenous, CONTINUOUS, Starting on Thu07/21/11 at 1015, Until Thu07/21/11 at 1425 New Bag 07/21/2011 10:00 AM EST 200 mL/hr 200 mL/hr documented in this encounter Active and Recently Administered Medications Times are shown in EST. Scheduled Medication Order 07/19/2011 07/20/2011 07/21/2011 diaZEPam (VALIUM) tablet 5 mg (COMPLETED) 0748 (Given - Provider: Anita Oneil RN) 5 mg, Oral, ONCE, 1 dose, Thu07/21/11 at 0630, Cath (Pre-Proced ure), Routine diphenhydrAMINE (BENADRYL) tablet 25 mg (COMPLETED) 0749 (Given - Provider: Anita Oneil RN) 25 mg, Oral, ONCE, 1 dose, Thu07/21/11 at 0630, Cath (Pre-P rocedure), Routine Continuous Medication Order 07/19/2011 07/20/2011 07/21/2011 sodium chloride 0.9% infusion (CANCELED) 0815 (Rate/Dose Change - Provider: Charlene Garcia RN - Comment: Rate decreased on arrival in petroleum laboratory technician)1000 (Stopped - Provider: Vishnu Lopez RN) 200 mL/hr, at 200 mL/hr, Intravenous, CO NTINUOUS, Starting Thu07/21/11 at 0630, Until Thu07/21/11 at 1006, Cath (Pre-Procedure) sodium chloride 0.9% infusion (CANCELED) 1000 (New Bag - Provider: Vishnu Lopez, MIGUELITO - Comment: post cath fluid to run until discharge)1150 (Rate/Dose Change - Provider: Vashti Madsen RN) 200 mL/hr, at 200 mL/hr, Intravenous, CO NTINUOUS, Starting Thu07/21/11 at 1015, Until Thu07/21/11 at 1425 PRN Medication Order 07/19/2011 07/20/2011 07/21/2011 fentaNYL 50mcg/mL injection (CANCELED) 0825 (Given - Provider: Charlene Garcia, MIGUELITO) ONCE PRN, Starting Thu07/21/11 at 0825, Until Thu07/21/11 at 1006, Pain, Cath (Intra-Procedure), Routine fentaNYL 50mcg/mL injection (CANCELED) 0833 (Given - Provider: Charlene Garcia RN) ONCE PRN, Starting Thu07/21/11 at 0833, Until Thu07/21/11 at 1006, Pain, Cath (Intra-Procedure), Routine midazolam (VERSED) injection (CANCELED) 0825 (Given - Provider: Charlene Garcia RN) ONCE PRN, Starting Thu07/21/11 at 0825, Until Thu07/21/11 at 1006, Sleep, Cath (Intra-Procedure), Routine documented in this encounter Care Teams Export Sales Assistant Relationship Specialty Start Date End Date Anna Mullen MD PCP - General 12/03/10 [address] [place] [address] documented as of this encounter
--- OUTSIDE RECORDS SUMMARY | 2022-03-13 18:37 | XMS_ITS | Encounter Summary ---
:1965 Author Organization [facility] [place] [address] Care Team Providers Name Role Phone Kj Beltran MD Primary Care Provider Encounter Details Date Type Department Care Team Description 08/13/2010 Procedure visit [place] [address] Social History Tobacco Use Types Packs/Day Years Used Date Never Assessed Sex Assigned at Date Recorded Male 05/29/2021 11:28 PM EDT documented as of this encounter Plan of Treatment Not on filedocumented as of this encounter Visit Diagnoses Not on filedocumented in this encounter Care Teams Call Center Manager Relationship Specialty Start Date End Date Kj Beltran MD PCP - General 07/23/10 12/02/[address] [place] [address] [place] [address] documented as of this encounter
--- OUTSIDE RECORDS SUMMARY | 2022-03-13 18:37 | XMS_ITS | Encounter Summary ---
:1965 Author Organization [facility] [place] [address] Care Team Providers Name Role Phone Unavailable Primary Care Provider Unavailable Encounter Details Date Type Department Care Team Description 07/04/2010 Office Visit Endocrinology at [facility] Divya Hermosillo, [facility] [place] [address] [facility] [phone] ENDOCRINOLOGY DE PT. [place], [place] [address] (Wo rk) Social History Tobacco Use Types Packs/Day Years Used Date Never Assessed Sex Assigned at Date Recorded Male 05/29/2021 11:28 PM EDT documented as of this encounter Plan of Treatment Not on filedocumented as of this encounter Visit Diagnoses Not on filedocumented in this encounter
--- OUTSIDE RECORDS SUMMARY | 2022-03-13 18:37 | XMS_ITS | Encounter Summary ---
:1965 Author Organization [facility] [place] [address] Care Team Providers Name Role Phone Anna Mullen MD Primary Care Provider Reason for Referral Surgical (Routine) - Cancelled by Ref MD Office Specialty Diagnoses / Procedures Referred By Contact Refer red To Contact Orthopaedic Surgery / Diagnoses HNP (herniated nucleus pulposus) Peri Jurado, Jesus Diana, Orthopaedics BLOW MOLDING MACHINE TENDER [facility] [address] [facility] [place] [address] Fax: Referral ID Status Reason Start Expiration Visits Visits Date Date Requested Authorized [id number] Cancelled by Consult & 01/08/2011 07/07/2011 1 1 Ref Office Test Reason for Visit Reason Comments Back Pain Encounter Details Date Type Department Care Team Description 01/08/2011 Follow-Up Spine Center at Peri Jurado, HNP (he rniated nucleus [place] BLOW MOLDING MACHINE TENDER pulposus) (Primary Dx) [facility] [place] [address] PAIN CLINIC [phone] [place] [address] (Wo rk) Social History Tobacco Use Types Packs/Day Years Used Date Never Smoker Smokeless Tobacco: Never Used Alcohol Use Standard Drinks/Week Comments Not Asked 0 (1 standard drink = 0.6 oz pure alcoho l) Sex Assigned at Date Recorded Male 05/29/2021 11:28 PM EDT documented as of this encounter Progress Notes Peri Jurado APRN - 01/08/2011 11:40 AM EDT Richard Hsu is a 45 y.o. male returns to the spine center to follow his chronic back pain in the setting of scoliosis. Seen initally on 12/25/10. MRI of 12/25/10 shows dextroscoliosis with multilevel degenerative changes. L4-L5 right paracentral disc extrusion, resulting in severe canal stenosis and [id number] bilateral neural foraminal narrowing. Scoli films show an S-shaped rotatory scoliosis with a dominant curve in the lumbar spine. The lumbar dextroscoliosis measures approximately 25 degrees when measured from the superior endplate of T12 to the inferior endplate of L4. The curve results in a slight coronal plane shift to the left. Symptoms today include Low back pain, right buttock and right lateral thigh, calf and foot. Back worse, 8/10 today. Has been working. Observation: He is pleasant with good eye contact and a quiet manner. Seen today in the company of his spouse. Did not repeat his exam. Plan: We have reviewed his Sx and plan of care at some length. Was offered injection and surgical consult. Will see the video on HNP. Wishes to have a surgical consult. documented in this encounter Plan of Treatment Scheduled Referrals Name Type Priority Associated Diagnoses Order S chedule REFERRAL TO SPINE Outpatient Referral Routine HNP (herniated O rdered: CENTER nucleus pulposus) 01/08/2011 documented as of this encounter Visit Diagnoses Diagnosis HNP (herniated nucleus pulposus) - Prima ry Displacement of intervertebral disc, sit e unspecified, without myelopathy documented in this encounter Care Teams Economic Development Coordinator Relationship Specialty Start Date End Date Anna Mullen MD PCP - General 12/03/10 [address] [place] [address] documented as of this encounter
--- OUTSIDE RECORDS SUMMARY | 2022-03-13 18:37 | XMS_ITS | Encounter Summary ---
:1965 Author Organization [facility] [place] [address] Care Team Providers Name Role Phone Anna Mullen MD Primary Care Provider Encounter Details Date Type Department Care Team Description 06/04/2011 Orders Only Neurology at [facility] Joselin Phillip, [facility] [place] [address] [address] [facility] [phone] NEUROLOGY DEPT. [place], [place] [address] (Wo rk) Social History Tobacco [...] on filedocumented in this encounter Care Teams Summer Law Associate Relationship Specialty Start Date End Date Anna Mullen MD PCP - General 12/03/10 [address] [place], [place] [address] documented as of this encounter
--- OUTSIDE RECORDS SUMMARY | 2022-03-13 18:37 | XMS_ITS | Encounter Summary ---
:1965 Author Organization [facility] [place] [address] Care Team Providers Name Role Phone Anna Mullen MD Primary Care Provider Reason for Visit Reason Onset Date Comments Labs Only 02/27/2011 Encounter Details Date Type Department Care Team Description 02/27/2011 Telephone Endocrinology at [facility] C Una Lassiter APRN Labs Only [facility] ankit [facility] [place] [address] ENDOCRINOLOGY DEPT. [phone] [place], [place] [address] (Wo rk) Social History Tobacco Use Types Packs/Day Years Used Date Never Smoker Smokeless Tobacco: Never Used Alcohol Use Standard Drinks/Week Comments Not Asked 0 (1 standard drink = 0.6 oz pure alcoho l) Sex Assigned at Date Recorded Male 05/29/2021 11:28 PM EDT documented as of this encounter Miscellaneous Notes Telephone Encounter - Una Lassiter APRN - 02/28/2011 9:06 AM EDT lab documented in this encounter Plan of Treatment Not on filedocumented as of this encounter Visit Diagnoses Diagnosis Diabetes - Primary Type II or unspecified type diabetes bria litus without mention of complication, not stated as uncontrolled documented in this encounter Care Teams Application Development Project Manager Relationship Specialty Start Date End Date Anna Mullen MD PCP - General 12/03/10 [address] [place] [address] documented as of this encounter
--- OUTSIDE RECORDS SUMMARY | 2022-03-13 18:37 | XMS_ITS | Encounter Summary ---
:1965 Author Organization [facility] [place] [address] Care Team Providers Name Role Phone Anna Mullen MD Primary Care Provider Encounter Details Date Type Department Care Team Description 04/28/2011 Orders Only Pain Management at L Richard Waldrop MD [facility] [place] [address] PAIN CLINIC [phone] [place], [place] [address] (Wo rk) Social History Tobacco [...] Associated Diagnosis Comme nts FILM LIBRARY Routine 04/28/2011 7:35 AM Results f or this STORAGE ONLY PAIN EDT procedure are in CLINIC C ARM the results section. documented in this encounter Results FILM LIBRARY-STORAGE ONLY PAIN CLINIC C-ARM (04/28/2011 7:35 AM EDT) Specimen (Source) Anatomical Collection Method Collection Time Re ceived Time Location / / Volume Laterality 04/28/2011 7:35 AM EDT Narrative RAD - 01/05/2014 12:06 PM EDT This is a non-reportable exam. Procedure Note Rylan Mccarthy - 01/05/2014Formatting of t his note might be different from the original. This is a non-reportable exam. Richard Peterson MD IM FILM LIBRARY ORDERABLES Performing Organization Address City/State/ZIP Code Phon e Number [facility] RAD [address] [facility] [address] documented in this encounter Visit Diagnoses Not on filedocumented in this encounter Care Teams Microsoft Architect Relationship Specialty Start Date End Date Anna Mullen MD PCP - General 12/03/10 [address] [place] [address] documented as of this encounter
--- OUTSIDE RECORDS SUMMARY | 2022-03-13 18:37 | XMS_ITS | Encounter Summary ---
:1965 Author Organization [facility] Address [facility] [place] [address] Care Team Providers Name Role Phone Anna Mullen MD Primary Care Provider Reason for Visit Reason Comments Low Back Pain With Radicular Pain chronic pain, had a stroke when he was 11 and was paralized from neck down for 30 days Right Leg Pain Encounter Details Date Type Department Care Team Description 12/25/2010 Office Visit [facility], Peri L K, Low carlos k pain (Primary Dx); [place] ESPINOSA Scoliosis [facility] [address] [place] [facility] [id number] [place] [address] [phone] Social History Tobacco Use Types Packs/Day Years Used Date Never Smoker Smokeless Tobacco: Never Used Alcohol Use Standard Drinks/Week Comments Not Asked 0 (1 standard drink = 0.6 oz pure alcoho l) Sex Assigned at Date Recorded Male 05/29/2021 11:28 PM EDT documented as of this encounter Last Filed Vital Signs Vital Sign Reading Time Taken Comments Blood Pressure 118/72 12/25/2010 8:25 AM EDT Pulse - - Temperature - - Respiratory Rate - - Oxygen Saturation - - Inhaled Oxygen Concentration - - Weight 102.1 kg (225 lb) 12/25/2010 8:25 AM EDT Height 182.9 cm (6') 12/25/2010 8:25 AM EDT Body Mass Index 30.52 12/25/2010 8:25 AM EDT documented in this encounter Progress Notes Cj Marcos - 03/12/2011 2:27 PM EDT Peri Jurado APRN - 12/25/2010 9:15 AM EDT Richard Hsu is a 45 y.o. male has been referred today by ANNA MULLEN MD. Chief complaint is low back pain, right leg pain, scoliosis History of present illness: He has had some component of symptoms since age 11 when he had a CVA, andwas paralyzed for 30 days related to his diabetes. He has had pain on a daily basis since which seems to be getting worse over time. Symptoms today: Daily low back pain that radiates into his right buttock, right lateral thigh, rightlateral calf, to his ankle. He has numbness in his right foot. Denies any weakness on the right his back pain is worse than his leg pain rated 7-8/10 and is worse with all activities, nothing seems to make it feel better, his sleep is disrupted related to his pain. He has been treated with physical therapy. He has ongoing weakness on the left side secondary to his stroke. Review of systems is positive for chest pain with dyspnea, this occurs on a monthly basis and he hasbeen known to take nitroglycerin. He also has symptoms of gastroesophageal reflux disease and gastroparesis. No other bowel or bladder issues. 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 He is a nonsmoker and nondrinker. Lives in [facility] with his spouse. Family history includes diabetes, heart problems, spine problems, arthritis, hypertension, stroke. Observation: He is a pleasant 6 foot gentleman with with a stated weight of 225 pounds. He has good eye contact and a full range of affect. Inspection of the spine shows a scoliotic deformity with his left leg shorter than his right thigh. He has a lift in his shoe. When he flexes forward to the floor there is a right rib hump noted. He extends normally and has minimal discomfort. Motor evaluation shows 4/5 strengths in all of the testingon the left related to his initial CVA a. He has decreased sensation in the whole left leg with decreased muscle mass particularly at the calf but also noted in the thigh again related to his prior stroke. He is hyperreflexive on the left leg with sustained clonus. Has 2+ reflexes on the right with noclonus. He has a negative Babinski bilaterally. Has a palpable pulses on both feet. He is more stiffwith testing on the left leg. Straight leg raise causes low back pain femoral tension stretches negative Fabere maneuvers are negative. Impressions chronic back pain in the setting of scoliosis. Mr. Hsu is a pleasant 45-year-old fit-appearing gentleman who has had diabetes since he was a child he is presently using an insulin pump. He had a stroke at 11 years of age the left him with left-sided weakness, he was paralyzed for approximately a month and had to relearn most of the skills. He has left- sided weakness with decreased muscle mass in his left leg. He cannot heel walk on the left, can do this on the right, he can toe walk with some difficulty. He does has odd gait secondary to thisprior stroke. He is been diagnosed with scoliosis for some time there has not been anyone following him for this. He has a leg length discrepancy of at least a half of an inch with his left being small shorter. In addition he adds that he picked up 3 ticks last summer, one of which was on him longer than 24 hours. He is did not have a primary care doctor at that point and is now concerned that his joints have been more painful since. On exam he does continue to have the deficits on the left side secondary to the prior stroke. He hasa right-sided rib hump with flexing forward. When he has his back pain, it is L3 to the sacrum, his leg pain has a L5 pattern. Treatment the we have agreed on to today includes obtaining a full scoliosis series and magnetic resonance imaging of his lumbar spine, will order Lyme titers. Will see him back one week following his imaging and then we will discuss a plan of care. I think that having a baseline scoliosis series might be helpful for him. Unfortunately he has a number of health issues including a monthly chest pain with dyspnea his average blood sugar seemed to be running about 168. documented in this encounter Plan of Treatment Not on filedocumented as of this encounter Procedures Procedure Name Priority Date/Time Associated Diagnosis Comme nts LYME IGG & IGM Routine 12/25/2010 9:37 AM Low back pain Result s for this ANTIBODY EDT procedure are i [...] ion, resulting in severe canal stenosis and [id number] bilateral neural fo raminal narrowing. ?? Film [...] n, resulting in severe canal stenosis and [id number] bilateral neural fo raminal narrowing. Film and interpretation reviewed by the attending Lamine Garcia MD IMG MRI ORDERABLES XR scoliosis 2 view (12/25/2010 10:01 AM [...] left. Lamine Garcia MD IMG DX ORDERABLES Lyme IgG & IgM Antibody (12/25/2010 9:37 AM EDT) Analysis Performed At Patho logist Time Signature Lyme Screening Negative Negative CERNER Antibody MILLENNIUM Specimen Anatomical Collection Method Collection Time Receive d Time (Source) Location / / Volume Laterality Blood specimen 12/25/2010 9:37 AM 011 5:15 (specimen) EDT PM EDT Lamine Garcia MD IMMUNOLOGY ORDERABLES Performing Organization Address City/State/[place] [address] [facility] documented in this encounter Visit Diagnoses Diagnosis Low back pain - Primary Lumbago Scoliosis Scoliosis (and kyphoscoliosis), idiopath ic Scoliosis Scoliosis (and kyphoscoliosis), idiopath ic Low back pain Lumbago documented in this encounter Care Teams Instrumentation Designer Relationship Specialty Start Date End Date Anna Mullen MD PCP - General 12/03/10 [address] [place] [address] documented as of this encounter
--- OUTSIDE RECORDS SUMMARY | 2022-03-13 18:37 | XMS_ITS | Encounter Summary ---
:1965 Author Organization [facility] [place] [address] Care Team Providers Name Role Phone Anna Mullen MD Primary Care Provider Encounter Details Date Type Department Care Team Description 12/24/2010 Abstract [facility], Peri Flores, TRAFFIC ENGINEER [facility] D [facility] [place] [address] [facility] [phone] [place], [place] [address] (Wo rk) Social History Tobacco Use Types Packs/Day Years Used Date Never Assessed Sex Assigned at Date Recorded Male 05/29/2021 11:28 PM EDT documented as of this encounter Plan of Treatment Not on filedocumented as of this encounter Visit Diagnoses Not on filedocumented in this encounter Care Teams Truck Car And Bus Cleaner Relationship Specialty Start Date End Date Anna Mullen MD PCP - General 12/03/10 [address] [place], [place] [id number] documented as of this encounter
--- OUTSIDE RECORDS SUMMARY | 2022-03-13 18:37 | XMS_ITS | Encounter Summary ---
:1965 Author Organization [facility] [place] [address] Care Team Providers Name Role Phone Anna Mullen MD Primary Care Provider Encounter Details Date Type Department Care Team Description 07/21/2011 Orders Only Cardiology at [facility] Froy Hampton MD [facility] [place] [address] CARDIOLOGY DEPT. [phone] [place], [place] [address] (Wo rk) Social History Tobacco [...] on filedocumented in this encounter Care Teams Telecommunications Clerk Relationship Specialty Start Date End Date Anna Mullen MD PCP - General 12/03/10 [address] [place] [address] documented as of this encounter
--- OUTSIDE RECORDS SUMMARY | 2022-03-13 18:37 | XMS_ITS | Encounter Summary ---
:1965 Author Organization [facility] [place] [address] Care Team Providers Name Role Phone Anna Mullen MD Primary Care Provider Reason for Visit Reason Comments Chest Pain Encounter Details Date Type Department Care Team Description 01/16/2011 [place] [facility]ner Reddy CAD (coronary artery [facility] MD Layla disease) (Primary Dx) [place] [address] CARDIOLOGY DEPT. [place], [place] [address] (Wo rk) Social History Tobacco Use Types Packs/Day Years Used Date Never Smoker Smokeless Tobacco: Never Used Alcohol Use Standard Drinks/Week Comments Not Asked 0 (1 standard drink = 0.6 oz pure alcoho l) Sex Assigned at Date Recorded Male 05/29/2021 11:28 PM EDT documented as of this encounter Last Filed Vital Signs Vital Sign Reading Time Taken Comments Blood Pressure 110/62 01/16/2011 3:59 PM EDT Pulse 78 01/16/2011 3:59 PM EDT Temperature - - Respiratory Rate - - Oxygen Saturation - - Inhaled Oxygen Concentration - - Weight 109.8 kg (242 lb) 01/16/2011 3:59 PM EDT Height 182.9 cm (6') 01/16/2011 3:59 PM EDT Body Mass Index 32.82 01/16/2011 3:59 PM EDT documented in this encounter Progress Notes KojobrennonWilner brandon T - 01/16/2011 4:37 PM EDT Subjective: Patient ID: Richard Hsu is a 45 y.o. male. HPI 1. 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 He is now .. He doesn't smoke or drink. 2. Overweight: This remains a concern. His weight today was 221 he is now 243. He should probably beabout 210. 3. Exercise: no exercise. 4. Hypertension: Not an issue, under control. 110/62 5. Type I Diabetes: on insulin pump doing well. 6. Elevated cholesterol: on therapy. His total cholesterol has been in the 120 range. But now off pravachol, stopped due to muscle aches and joint aches, no change in these off med, ck 284. See plan below. 7. GERD. Present along with gastroparesis, due to to his diabetes. 8. History of myoclonus. 9. ? ASCVD: He had a cath two years ago which showed luminal irregularities only. LV function was not diminished. Recently he's had progressive symptoms of exertional chest tightness which is limiting.He had a nuclear stress test done which showed a reversible apical defect with reproducible symptoms. He feels limited by this. Given his multiple risk factors we proceeded with a repeat CATH 1.5 yearsago and this was again normal. His chest pain comes on at rest, or with exertion. 10. Diminished LV function: this normalized to 65%. Recent ECHO was again stable at 65%. He's had nosymptoms of failure. 11. Back pain: he may require back surgery we will stress him prior to this. Review of Systems Constitutional: Negative. HENT: Negative. Eyes: Negative. Cardiovascular: Positive for chest pain. Respiratory: Negative. Endocrine: Negative. Skin: Negative. Musculoskeletal: Negative. Gastrointestinal: Positive for bloating and dysphagia. Genitourinary: Negative. Neurological: Negative. Psychiatric/Behavioral: Negative. Objective: Physical Exam Constitutional: He appears healthy. HENT: Mouth/Throat: Oropharynx is clear. Eyes: Pupils are equal, round, and reactive to light. Neck: Normal range of motion. Cardiovascular: Regular rhythm and normal heart sounds. Pulses: Carotid pulses are 2+ on the right side, and 2+ on the left side. Radial pulses are 2+ on the right side, and 2+ on the left side. Femoral pulses are 2+ on the right side, and 2+ on the left side. Popliteal pulses are 2+ on the right side, and 2+ on the left side. Dorsalis pedis pulses are 2+ on the right side, and 2+ on the left side. Posterior tibial pulses are 2+ on the right side, and 2+ on the left side. Pulmonary/Chest: Breath sounds normal. He has no rales. Musculoskeletal: Normal range of motion. Neurological: He is alert and oriented to person, place, and time. Skin: Skin is warm and dry. Assessment and Plan: ASSESSMENT: THIS NICE MAN HAS A LONG HISTORY OF CHEST PAIN, WITH 2 CTHS REVEALING NO SIGNIFICANT CAD. OBVIOUSLY HE IS AT RISK FOR CAD, HOWEVER HE ALSO HAS DIABETES WITH GI ISSUES INCLUDING GASTROPAREISIS AND GERD. HE ALSO HAS MUSCLE ACHE WHICH DO NOT SOUND LIKE STATIN RELATED COMPLAINTS AND IDEALLY HE SHOULD BE BACK ON STATINS. PLAN: 1. SCHEDULE STRESS ECHO. 2. GI APPT IS APPARENTLY BEIBG SET UP. 3. GIVE HIM ANOTHER 2 WEEKS, HOWEVER IF HIS JOINT ACHES PERSIST , RETRY A DIFFERENT STATIN IE CRESTOR 5 MG. I WILL SEE HIM AT THE TIME OF THE STRES ECHO. documented in this encounter Plan of Treatment Not on filedocumented as of this encounter Results Stress Echo (treadmill) (02/21/2011 8:39 AM EDT) P athologist Signature EF 65 HEARTLAB SYSTEM Specimen (Source) Anatomical Location Collection Method / Collectio n Time Received Time / Laterality Volume 02/21/2011 Narrative HEARTLAB SYSTEM - 02/21/2011 9:37 AM EDT Procedure: ? Stress Echocardiogram ? Patient: ? VAZQUEZ Guillen ?(Age): 1965(45) Med Rec#: ?[id number] ?Sex: ?M ? Site Loc: [facility] ?Ht / Wt: 182(cm)/104(kg) Pt. Loc: ? Echo Lab ?BSA: ?10.25 Study Date: ?02/21/2011 ?Pt. Type: Outpatient Tape: ? Referring: Wilner Reddy [facility] Registered Nurse: Jameel Van Lead C Developer: Maryjane Marley MATTEO Interpreting Fellow: Paul Nunez Diagnosis: ??Chest pain (786.50) CPT Code(s): ??Doppler LTD (07543), ??EC G Interpretation (56462), ??Stress Echo (72090), ??Color Doppler (09675), Indication(s): ??Chest Pain Medication(s): ?? Rhythm: Stage ?HR ?BP Rest ? 55 ?144/78 ?? Peak ? 152 ? 176/68 ?? SUMMARY: 1. Rest: ??The resting EKG showed sinus bradycardia. Left ventricular chamber size, wall thickness, global and segmental systolic function are within normal limits. Ejection fraction is estimated to be 65%. Right ventricular chamber size, wall thickness , and systolic function are within normal limits. There is no hemody namically significant valvular disease. 2. Stress: ??The patient exercised accor ding to the Omar protocol into stage 4 and for a duration of 9 minutes. He reached a peak heart rate of 155 bpm (86% of max predicted) and a pea k work load of 11 METS. The patient experienced chest pain, dyspnea and lightheadedness at peak excercise. His blood pressure response t o exercise was approriate, his BP at peak exercise was 176/68. ??There were no signficant ST segment changes. This was a negative electrocard iographic stress test for ischemia. ??All left ventricular wall se gments became hyperdynamic with stress. 3. Conclusion: Normal exercise stress ec hocardiogram FINDINGS: Rest Left Ventricle ?Left ventricular chamber size, wal l thickness, global and segmental systolic function are within normal limi ts. Ejection fraction is estimated to be 65%. Left Atrium ?The left atrium is probably normal in size. Right Ventricle ?Right ventricular chamber size, wa ll thickness, and systolic function are within normal limits. Right Atrium ?The right atrium is probably romain l in size. Aortic Valve ?The aortic valve is trileaflet. Th e leaflets are thin with normal excursion. There is no aortic stenosis o r regurgitation present. Mitral Valve ?The mitral valve appears normal in structure and function. ?There is trace mitral regurgitatio n present. Tricuspid Valve ?The tricuspid valve appears normal in structure and function. ?There is trace tricuspid regurgita tion present. Pericardium ?The pericardium appears normal and there is no evidence of a pericardial effusion. Stress ?EKG: sinus bradycardia. ?The patient's oxygen saturation wa s 99%. ?The patient is taking a beta block er. ?The patient is taking a lipid lowe ring agent. ?The patient is on an LUPE inhibitor . ?The patient is taking a calcium ch elle kody. ?The patient is taking aspirin. Misc ?Other echo and stress findings as noted in report. ?Stress echo, limited spectral Dopp ler, color Doppler and ECG interpretation performed. FINDINGS: Peak Left Ventricle ?Global left ventricular systolic f unction appears hyperdynamic. Stress ?Patient followed a Omar protocol. ?The patient exercised into stage 4 . ?The total exercise duration was:9: 10 ?The study was terminated because o f dyspnea. ?The study was terminated because o f chest pain. ?The study was terminated because o f ??dizziness ?Maximum heart rate achieved was 15 2, which is 86% of the maximum(177 beats/min). ?The target heart rate was achieved . ?The patient expressed feelings of chest discomfort. ?The patient experienced shortness of breath. ?The patient felt light-headed. ?The blood pressure response was no rmal. ?Exercise capacity was good. ?The patient achieved a level of 11 METS. ?There were rare supraventricular b eats. ?There were ventricular couplets. ?There were no significant ST segme nt changes. ?This was a negative electrocardiog raphic stress test for ischemia. ?This was a negative echocardiograp hic stress test. ?The patient's oxygen saturation wa s 100% Wall Motion: Segment Name ?Rest ?Peak ? Base-Anteroseptal ?? Normal ?Normal ? Base-Anterior ? Normal ?Normal ? Base-Anterolateral ??Normal ?Normal ? Base-Posterolateral Normal ?Normal ? Base-Inferior ? Normal ?Normal ? Base-Inferoseptal ?? Normal ?Normal ? Mid-Anteroseptal ?Normal ?Normal ? Mid-Anterior ?Normal ?Normal ? Mid-Anterolateral ?? Normal ?Normal ? Mid-Posterolateral ??Normal ?Normal ? Mid-Inferior ?Normal ?Normal ? Mid-Inferoseptal ?Normal ?Normal ? Kirvin-Septal ? Normal ?Normal ? Kirvin-Anterior ? Normal ?Normal ? Kirvin-Lateral ?Normal ?Normal ? Kirvin-Inferior ? Normal ?Normal ? Kirvin-Tip ?Normal ?Normal ? Chambers ?Value ?Units (Range) ? LV EF Est ? 65 ? % (55 to 80) ? Tricuspid/Pulmonic Valves ?Value ?Units (Range) ? TR peak parth ? 2.4 ?m/sec ? This report has been electronically sign ed by: _ Omar Aviles M.D. ? 02/21/2011 09:36:05 Images reviewed and interpretation tyson tamayo [facility] Cardiac Ultrasound Laboratory Procedure Note 02/21/2011 Procedure: Stress Echocardiogram Patient: VAZQUEZ Guillen (Age): [birth year]) Med Rec#: [id number] Sex: M [facility] [place]: [facility] Ht / Wt: 182(cm)/104(kg) Pt. Loc: Echo Lab BSA: 2.25 Study Date: 02/21/2011 Pt. Type: Outpati ent Tape: Referring: Wilner Reddy [facility] Registered Nurse: Jameel Van Lead C Developer: Maryjane Marley RDCS Interpreting Fellow: Paul Nunez Diagnosis: Chest pain (786.50) CPT Code(s): Doppler LTD (85131), ECG In terpretation (87024), Stress Echo (70135), Color Doppler (42437), Indication(s): Chest Pain Medication(s): Rhythm: Stage HR BP Rest 55 144/78 Peak 152 176/68 SUMMARY: 1. Rest: The resting EKG showed sinus br adycardia. Left ventricular chamber size, wall thickness, global and segmental systolic function are within normal limits. Ejection fraction is estimated to be 65%. Right ventricular chamber size, wall thickness , and systolic function are within normal limits. There is no hemody namically significant valvular disease. 2. Stress: The patient exercised accordi ng to the Omar protocol into stage 4 and for a duration of 9 minutes. He reached a peak heart rate of 155 bpm (86% of max predicted) and a pea k work load of 11 METS. The patient experienced chest pain, dyspnea and lightheadedness at peak excercise. His blood pressure response t o exercise was approriate, his BP at peak exercise was 176/68. There we re no signficant ST segment changes. This was a negative electrocard iographic stress test for ischemia. All left ventricular wall segm ents became hyperdynamic with stress. 3. Conclusion: Normal exercise stress ec hocardiogram FINDINGS: Rest Left Ventricle Left ventricular chamber size, wall thi ckness, global and segmental systolic function are within normal limi ts. Ejection fraction is estimated to be 65%. Left Atrium The left atrium is probably normal in s ize. Right Ventricle Right ventricular chamber size, wall th ickness, and systolic function are within normal limits. Right Atrium The right atrium is probably normal in size. Aortic Valve The aortic valve is trileaflet. The anshul flets are thin with normal excursion. There is no aortic stenosis o r regurgitation present. Mitral Valve The mitral valve appears normal in stru cture and function. There is trace mitral regurgitation pre sent. Tricuspid Valve The tricuspid valve appears normal in s tructure and function. There is trace tricuspid regurgitation present. Pericardium The pericardium appears normal and ther e is no evidence of a pericardial effusion. Stress EKG: sinus bradycardia. The patient's oxygen saturation was 99% . The patient is taking a beta kody. The patient is taking a lipid lowering agent. The patient is on an LUPE inhibitor. The patient is taking a calcium channel kody. The patient is taking aspirin. Misc Other echo and stress findings as noted in report. Stress echo, limited spectral Doppler, color Doppler and ECG interpretation performed. FINDINGS: Peak Left Ventricle Global left ventricular systolic functi on appears hyperdynamic. Stress Patient followed a Omar protocol. The patient exercised into stage 4. The total exercise duration was:9:10 The study was terminated because of dys pnea. The study was terminated because of sheldon st pain. The study was terminated because of diz ziness Maximum heart rate achieved was 152, wh ich is 86% of the maximum(177 beats/min). The target heart rate was achieved. The patient expressed feelings of chest discomfort. The patient experienced shortness of br eath. The patient felt light-headed. The blood pressure response was normal. Exercise capacity was good. The patient achieved a level of 11 METS . There were rare supraventricular beats. There were ventricular couplets. There were no significant ST segment ch anges. This was a negative electrocardiographi c stress test for ischemia. This was a negative echocardiographic s tress test. The patient's oxygen saturation was 100 % Wall Motion: Segment Name Rest Peak Base-Anteroseptal Normal Normal Base-Anterior Normal Normal Base-Anterolateral Normal Normal Base-Posterolateral Normal Normal Base-Inferior Normal Normal Base-Inferoseptal Normal Normal Mid-Anteroseptal Normal Normal Mid-Anterior Normal Normal Mid-Anterolateral Normal Normal Mid-Posterolateral Normal Normal Mid-Inferior Normal Normal Mid-Inferoseptal Normal Normal Kirvin-Septal Normal Normal Kirvin-Anterior Normal Normal Kirvin-Lateral Normal Normal Kirvin-Inferior Normal Normal Kirvin-Tip Normal Normal Chambers Value Units (Range) LV EF Est 65 % (55 to 80) Tricuspid/Pulmonic Valves Value Units (Range) TR peak parth 2.4 m/sec This report has been electronically sign ed by: _ Omar Aviles M.D. 02/21/2011 09:36 :05 Images reviewed and interpretation verif ied [facility] Cardiac Ultrasound Laboratory Wilner Reddy MD ECHO ORDERABLES Performing Organization Address City/State/ZIP Code Phon e Number HEARTLAB SYSTEM documented in this encounter Visit Diagnoses Diagnosis CAD (coronary artery disease) - Primary Coronary atherosclerosis of unspecified type of vessel, [place] or graft CAD (coronary artery disease) Coronary atherosclerosis of unspecified type of vessel, [place]im[place] or graft documented in this encounter Care Teams District Manager Primary Care Sales Relationship Specialty Start Date End Date Anna Mullen MD PCP - General 12/03/10 [address] [place] [address] documented as of this encounter
--- OUTSIDE RECORDS SUMMARY | 2022-03-13 18:37 | XMS_ITS | Encounter Summary ---
:1965 Author Organization [facility] [place] [address] Care Team Providers Name Role Phone Anna Mullen MD Primary Care Provider Reason for Visit Reason Onset Date Comments Medication Refill 06/09/2011 Encounter Details Date Type Department Care Team Description 06/09/2011 Refill Endocrinology at [facility] Divya Hermosillo MD [facility] [place] [address] ENDOCRINOLOGY DEPT. [phone] [place], [place] [address] (Wo rk) Social History Tobacco [...] on filedocumented in this encounter Care Teams Security Lead Relationship Specialty Start Date End Date Anna Mullen MD PCP - General 12/03/10 [address] [place], [place] [id number] documented as of this encounter
--- OUTSIDE RECORDS SUMMARY | 2022-03-13 18:37 | XMS_ITS | Encounter Summary ---
:1965 Author Organization [facility] [place] [address] Care Team Providers Name Role Phone Kj Beltran MD Primary Care Provider [phone] Encounter Details Date Type Department Care Team Description 08/13/2010 Office Visit [place]rology [place] [facility]io Fortune [facility] [place] [address] NEUROLOGY DEPT. [phone] [place], [place] [address] (Wo rk) Social History Tobacco Use Types Packs/Day Years Used Date Never Assessed Sex Assigned at Date Recorded Male 05/29/2021 11:28 PM EDT documented as of this encounter Plan of Treatment Not on filedocumented as of this encounter Visit Diagnoses Not on filedocumented in this encounter Care Teams Stone Layer Relationship Specialty Start Date End Date Kj Beltran MD PCP - General 07/23/10 12/02/[address] [place] [address] [place], [place] [address] documented as of this encounter
--- OUTSIDE RECORDS SUMMARY | 2022-03-13 18:37 | XMS_ITS | Encounter Summary ---
:1965 Author Organization [facility] [place] [address] Care Team Providers Name Role Phone Anna Mullen MD Primary Care Provider Encounter Details Date Type Department Care Team Description 04/28/2011 Hospital Encounter XRay at [address] [place] [address] Social History Tobacco Use Types Packs/Day Years Used Date Never Smoker Smokeless Tobacco: Never Used Alcohol Use Standard Drinks/Week Comments Not Asked 0 (1 standard drink = 0.6 oz pure alcoho l) Sex Assigned at Date Recorded Male 05/29/2021 11:28 PM EDT documented as of this encounter Medications at Time of Discharge Medication Sig Dispensed Refills Start Date End Date losartan (COZAAR) 100 mg Take by mouth 0 08/10/2013 tablet daily. pravastatin (PRAVACHOL) 40 Take 40 mg by mouth 0 09/02/2013 mg tablet daily. ibuprofen (ADVIL;MOTRIN) Take 800 mg by 0 10/10/2011 800 mg tablet mouth every 6 hours as needed. traMADol (ULTRAM) 50 mg Take 100 mg by 0 10/18/2013 tablet mouth 2 times daily. [place]-3 Fatty Take 5,000 mg by 0 01/08/201109/06 Acids-Vitamin E (FISH OIL) mouth daily. 1,000 mg Cap Acetone, Urine, [place] [facility]Non-[place]rug; 0 09/02/2013 (ACETONE, URINE, TEST) Combo Route) [...] on filedocumented in this encounter Care Teams Battery Vent Plug Inserter Relationship Specialty Start Date End Date Anna Mullen MD PCP - General 12/03/10 [address] [place] [address] documented as of this encounter
--- OUTSIDE RECORDS SUMMARY | 2022-03-13 18:37 | XMS_ITS | Encounter Summary ---
:1965 Author Organization [facility] [place] [address] Care Team Providers Name Role Phone Anna Mullen MD Primary Care Provider Encounter Details Date Type Department Care Team Description 02/21/2011 Hospital Encounter Non-Invasive CAD (cipriano nary artery Cardiology Lab Tiffani disease) [place] [address] Social History Tobacco Use Types Packs/Day [...] 0 10/18/2013 tablet mouth 2 times daily. [place]-3 Fatty Take 5,000 mg by 0 01/08/201109/06 Acids-Vitamin E (FISH OIL) mouth daily. 1,000 mg Cap Acetone, Urine, Test by [facility] [place] [facility]Non-Drug; 0 09/02/2013 (ACETONE, URINE, TEST) Combo [...] Name Priority Date/Time Associated Comments Diagnosis ECHOCARDIOGRAM STRESS Routine 02/21/2011 8:39 AM CAD (coronary Results for this TEST (TREADMILL) EDT artery disease) procedur e are in the results section. documented in this encounter Results Stress Echo (treadmill) (02/21/2011 8:39 AM EDT) P athologist Signature EF 65 [facility] SYSTEM Specimen (Source) Anatomical Location Collection Method / Collectio n Time Received Time / Laterality Volume 02/21/2011 Narrative HEARTLAB SYSTEM - 02/21/2011 9:37 AM EDT Procedure: ? Stress Echocardiogram ? Patient: ? VAZQUEZ Guillen ?(Age): 1965(45) Med Rec#: ?[id number] ?Sex: ?M ? [place]Ht / Wt: 182(cm)/104(kg) Pt. Loc: ? Echo Lab ?BSA: ?2.25 Study Date: ?02/21/2011 ?Pt. Type: Outpatient Tape: ? Referring: Wilner Reddy Brick Tester: Jameel Van Industrial Engineering Professor: Maryjane Marley MATTEO Interpreting Fellow: Paul Nunez Diagnosis: ??Chest pain (786.50) CPT Code(s): ??Doppler LTD (17674), ??EC G Interpretation (31697), ??Stress Echo (33708), ??Color Doppler (84927), Indication(s): ??Chest Pain Medication(s): ?? Rhythm: Stage [...] ?Normal ?Normal ? Mid-Inferoseptal ?Normal ?Normal ? Garrett-Septal ? Normal ?Normal ? Garrett-Anterior ? Normal ?Normal ? Garrett-Lateral ?Normal ?Normal ? Garrett-Inferior ? Normal ?Normal ? Garrett-Tip ?Normal ?Normal ? Chambers ?Value ?Units (Range) ? LV EF Est ? 65 ? % (55 to 80) ? Tricuspid/Pulmonic Valves ?Value ?Units (Range) ? TR peak parth ? 2.4 ?m/sec ? This report has been electronically sign ed by: _ Omar Aviles M.D. ? 02/21/2011 09:36:05 Images reviewed and interpretation tyson tamayo [facility] Cardiac Ultrasound Laboratory Procedure Note 02/21/2011 Procedure: Stress Echocardiogram Patient: VAZQUEZ Guillen (Age): [birth year]) Med Rec#: [id number] Sex: M [place] [facility] Ht / Wt: 182(cm)/104(kg) Pt. Loc: Echo Lab BSA: 2.25 Study Date: 02/21/2011 Pt. Type: Outpati ent Tape: Referring: Wilner Reddy Brick Tester: Jameel Van Industrial Engineering Professor: Maryjane Marley RDCS Interpreting Fellow: Paul Nunez Diagnosis: Chest pain (786.50) CPT Code(s): Doppler LTD (68604), ECG In terpretation (11387), Stress Echo (45389), Color Doppler (95407), Indication(s): Chest Pain Medication(s): Rhythm: Stage HR [...] channel kody. The patient is taking aspirin. [facility] Other echo and stress findings as noted [...] Normal Mid-Inferior Normal Normal Mid-Inferoseptal Normal Normal Garrett-Septal Normal Normal Garrett-Anterior Normal Normal Garrett-Lateral Normal Normal Garrett-Inferior Normal Normal Garrett-Tip Normal Normal Chambers Value Units (Range) LV EF Est 65 % (55 to 80) Tricuspid/Pulmonic Valves Value Units (Range) TR peak parth 2.4 m/sec This report has been electronically sign ed by: _ Omar Aviles M.D. 02/21/2011 09:36 :05 Images reviewed and interpretation tyson tamayo [facility] Cardiac Ultrasound Laboratory Wilner Reddy MD ECHO ORDERABLES Performing Organization Address City/State/ZIP Code Phon e Number HEARTLAB SYSTEM documented in this encounter Visit Diagnoses Diagnosis CAD (coronary artery disease) Coronary atherosclerosis of unspecified type of vessel, [place] or graft documented in this encounter Care Teams Part Time Receptionist Relationship Specialty Start Date End Date Anna Mullen MD PCP - General 12/03/10 [address] [place] [address] documented as of this encounter
--- OUTSIDE RECORDS SUMMARY | 2022-03-13 18:37 | XMS_ITS | Encounter Summary ---
:1965 Author Organization [facility] [place] [address] Care Team Providers Name Role Phone Anna Mullen MD Primary Care Provider Reason for Visit Reason Comments Right Leg Pain Backache Encounter Details Date Type Department Care Team Description 02/19/2011 Office Visit Pain Management at [facility] Lumba r radiculopathy (Primary Dx); [facility] [place] [place] Lumbar disc herniation with radiculopath y [facility] [address] [place], [place] [facility] [address] [place] [address] [phone] Social History Tobacco Use Types Packs/Day Years Used Date Never Smoker Smokeless Tobacco: Never Used Alcohol Use Standard Drinks/Week Comments Not Asked 0 (1 standard drink = 0.6 oz pure alcoho l) Sex Assigned at Date Recorded Male 05/29/2021 11:28 PM EDT documented as of this encounter Last Filed Vital Signs Vital Sign Reading Time Taken Comments Blood Pressure 124/82 02/19/2011 1:58 PM EDT Pulse 57 02/19/2011 1:58 PM EDT Temperature - - Respiratory Rate - - Oxygen Saturation 97% 02/19/2011 1:58 PM EDT Inhaled Oxygen Concentration - - Weight - - Height - - Body Mass Index - - documented in this encounter Patient Instructions Patient InstructionsDeidre Petersen LPN - 02/19/2011 1:44 PM EDT Pain Management Center Discharge Instructions: You were seen by Dr. Richard Peterson MD and Dr Sonia Jurado who performed lumbar epidural steroid injection. [x] You may resume your normal [...] isof concern, contact your Primary Care Provider. During regular business hours, please phone the [...] or proceed to your local emergency department. Deidre Petersen LPN Special instructions documented in this encounter Progress Notes Deidre Petersen LPN - 02/19/2011 1:38 PM EDT Pre-Procedure Screening Questions: 1. Status: No 2. 3. Patient states they have a form setter/driver to transport after procedure? Yes 4. Patient taking antibiotics at present? No 5. NPO per Pain Management Center protocol? No 6. 7. Patient diabetic: Yes __ borderline (not treated with medications) __ managed with oral medications __ managed with injected medications 8. Patient routinely taking anticoagulants ? No Date stopped Current INR Patient Vital Signs documented in Doc Flowsheets associated with this encounter. Patient Discharge Instructions were reviewed with patient and copy provided to patient. documented in this encounter Procedure Notes Magdalene Jurado MD - 02/19/2011 2:10 PM EDTAssociated Order(s): EPIDURAL STEROID INJECTION Procedure(s): EPIDURAL STEROID INJECTION STERIOID INJECTION PROCEDURE NOTE Richard Hsu has been referred to the Pain Management Center for lumbar epidural steroid injection. Richard Hsu was greeted by the nurse who verified patients name and . Patient was then takento the fluoroscopy suite. MRI of the lumbar spine reviewed. The patient complains of back pain radiating to the right leg and foot. Richard Hsu was interviewed and the medical record reviewed. There were no medical, pharmacologic, radiographic, or other structural contraindications to attempting fluoroscopically guided L5-S1 injection. Risks and expected side effects as well as potential benefits of the procedure were reviewed with Richard Hsu and his voiced concerns addressed. The patient consent form was signed and witnessed. Standard time-out procedure was performed. Richard Hsu was placed in the prone position on the fluoroscopy table and automated blood pressure cuff and pulse oximeter applied. The skin entry point for entering/approaching the epidural spaceby a mildine L5-S1 and marked. Following thorough Chlorhexidine preparation of the skin and draping and 1% lidocaine infiltration of the skin entry point and subcutaneous tissues, a 18 gauge Tuohy needle was placed under fluoroscopic guidance and with loss of resistance technique into the epidural space. Needle tip placement and depth were aided and confirmed by fluoroscopy. There was no paresthesia or return of blood or CSF through the needle. 1 cc's of Omnipaque 240 were injected with clear epidural spread confirmed with fluoroscopy. Depomedrol followed by 2 ml sterile normal saline were injected. There was not any unusual discomfort expressed by Richard Hsu. Richard Maris vital signs were stable throughout the procedure and were as recorded in nursing records. Intravenous drugs for sedation and analgesia were not given as ordered by me. Follow up plans and appointments were discussed with Richard Hsu. Post procedure instruction was given as documented in nursing records and having met discharge criteria he was discharged from [facility]. COMMENTS: Should this injection help to improve his pain, he may have it repeated prn not to exceed three injections in one year. Should this not help to improve his pain, we would recommend a right L4and L5 TFESI. MAGDALENE JURADO MD I was the attending physician supervising the resident in the above care and I was present with the resident for the entire procedure. documented in this encounter Miscellaneous Notes Miscellaneous - Hemant, Bead Cutter - 02/25/2011 2:37 PM EDT documented in this encounter Plan of Treatment Not on filedocumented as of this encounter Results Epidural steroid injection (02/19/2011 2:53 PM EDT) Richard Peterson MD NEUROLOGY ORDERABLES documented in this encounter Visit Diagnoses Diagnosis Lumbar radiculopathy - Primary Thoracic or lumbosacral neuritis or radi culitis, unspecified Lumbar disc herniation with radiculopath y Displacement of lumbar intervertebral di sc without myelopathy documented in this encounter Administered Medications Inactive Administered Medications - up to 3 most recent administrations Medication Order MAR Action Action Date Dose Rate Site iohexol (OMNIPAQUE) Given 02/19/2011 12:00 PM 1 mL 20-Other (document injection 50 mL EDT in comment sect ion) 50 mL, Intravenous, ONCE PRN, 1 dose, Starting on Thu02/19/11 at 1258, Until Thu02/19/11 at 1200, Per Protocol, Routine methylPREDNISolone acetate Given 02/19/2011 1:15 PM 80 mg 20-Other (document (depo-MEDROL) injection 120 mg EDT in comment sect ion) 120 mg, Intramuscular, ONCE, 1 dose, On Thu02/19/11 at 1315, Routine documented in this encounter Care Teams Scrap Carrier Relationship Specialty Start Date End Date Anna Mullen MD PCP - General 12/03/10 [address] [place] [address] documented as of this encounter
--- OUTSIDE RECORDS SUMMARY | 2022-03-13 18:37 | XMS_ITS | Encounter Summary ---
:1965 Author Organization [facility] Address [address] [place] [address] Care Team Providers Name Role Phone Anna Mullen MD Primary Care Provider Encounter Details Date Type Department Care Team Description 07/21/2011 Surgery Cloth Tearer Tiffani PittmanLevi Bocanegra CARDIAC CATHETERIZATION [facility] MD [address] [place] [address] CARDIOLOGY DEPT. [phone] [place], [place] [address] (Wo rk) Social History Tobacco Use Types Packs/Day Years Used Date Never Smoker Smokeless Tobacco: Never Used Alcohol Use Standard Drinks/Week Comments Not Asked 0 (1 standard drink = 0.6 oz pure alcoho l) Sex Assigned at Date Recorded Male 05/29/2021 11:28 PM EDT documented as of this encounter Last Filed Vital Signs Vital Sign Reading Time Taken Comments Blood Pressure 113/71 07/21/2011 6:25 AM EST right arm Pulse 57 07/21/2011 6:21 AM EST Temperature 36.5 ??C (97.7 ??F) 07/21/2011 6:21 AM EST Respiratory Rate 16 07/21/2011 6:21 AM EST Oxygen Saturation 97% 07/21/2011 6:21 AM EST Inhaled Oxygen Concentration - - [...] by your doctor, do not take any zjwa-psm-ygxuzun medicines orherbal preparations without first discussing this with your doctor or pharmacist. There is the possibility of side effect and interactions when these are combined. Follow up Care Who to Call with Questions or Problems If there are any questions or problems that you think might be related to your cardiac cath or angioplasty, contact the operator engineer exceptional needs teacher by calling [facility] at [phone]. 1. You may have received medication before [...] Take 1 tablet by 60 tablet 5 12/201001/21/2012 550 mg tablet mouth 2 times [...] 0 10/18/2013 tablet mouth 2 times daily. Loma-3 Fatty Take 5,000 mg by 0 01/08/201109/06 [...] Pre-Procedural H&P Patient Name: Richard Hsu : [id number] y.o. MR#: [id number] Chief Complaint: Chest Pain Planned Procedure: LHC and coronary angiography History of Present Illness: HPI I have reviewed and updated as necessary the Medical, Surgical, Family, and Social History captured within the EMR. I have reviewed and updated as necessary the patient's allergies and current medication list within the EMR. Review of Systems: Review of Systems Physical Exam: Filed Vitals: 07/21/11 0621 07/21/11 06 BP: 95/61 113/71 Pulse: 57 Temp: 36.5 ??C (97.7 ??F) TempSrc: Oral Resp: 16 Height: 182.9 cm (6') Weight: 102.967 kg (227 lb) SpO2: 97% Physical Exam AOX3,NAD CTAB RR,S1,S2 Assessment and Plan: Chest pain with abnormal stress test in patient with DM,HTN. Proceed with C as planned. FROY HAMPTON MD 07/21/2011 documented [...] Glucose 137 60 - 199 CERNER mg/dL [facility] Comment: Supplemental ranges: <110 mg/dL before meals <200 mg/dL all other times of the day Specimen Anatomical Collection Method Collection Time Receive d Time (Source) Location / / Volume Laterality Blood specimen 07/21/2011 10:24 11/21/201 1 (specimen) AM EST 10:24 AM EST Raghav Dueñas MD POINT OF CARE TEST ORDERABLE S Performing Organization Address City/State/ZIP Code Phon e Number [address] CERNER MILLENNIUM POCT GLUCOSE [...] CARE TEST ORDERABLE S Performing Organization Address City/[facility]/ZIP Code Phon e Number [address] CERNER MILLENNIUM POCT GLUCOSE [...] Organization Address City/State/ZIP Code Phon e Number [address] CERNER MILLENNIUM documented in [...] at 0630, Cath (Day of Procedure), Routine fentaNYL 50mcg/mL injection Given 07/21/2011 8:25 AM EST 25 mcg ONCE PRN, Starting on Thu07/21/11 at 0825, Until Thu07/21/11 at 1006, Pain, Cath (Intra-Procedure), Routine fentaNYL 50mcg/mL injection Given 07/21/2011 8:33 AM EST 25 mcg ONCE PRN, Starting on Thu07/21/11 at 0833, Until Thu07/21/11 at 1006, Pain, Cath (Intra-Procedure), Routine midazolam (VERSED) injection Given 07/21/2011 8:25 AM EST 1 mg ONCE PRN, Starting on Thu07/21/11 at 0825, Until Thu07/21/11 at 1006, Sleep, Cath (Intra-Procedure), Routine sodium chloride 0.9% Rate/Dose Change 07/21/2011 [...] - Comment: Rate decreased on arrival in medical laboratory technical officer)1000 (Stopped - Provider: Vishnu Lopez, RN) 200 mL/hr, at 200 mL/hr, Intravenous, [...] injection (CANCELED) 0833 (Given - Provider: Charlene Garcia, MIGUELITO) ONCE PRN, Starting Thu07/21/11 at 0833, Until Thu07/21/11 at 1006, Pain, Cath (Intra-Procedure), Routine midazolam (VERSED) injection (CANCELED) 0825 (Given - Provider: Charlene Garcia, MIGUELITO) ONCE PRN, Starting Thu07/21/11 at 0825, Until Thu07/21/11 at 1006, Sleep, Cath (Intra-Procedure), Routine documented in this encounter Care Teams Senior Programmer Relationship Specialty Start Date End Date Anna Mullen MD PCP - General 12/03/10 [address] [place] [address] documented as of this encounter
--- OUTSIDE RECORDS SUMMARY | 2022-03-13 18:37 | XMS_ITS | Encounter Summary ---
:1965 Author Organization [facility] [place] [address] Care Team Providers Name Role Phone Anna Mullen MD Primary Care Provider Encounter Details Date Type Department Care Team Description 04/27/2010 Orders Only [place]rology [place] [facility] Geoffrey Martinez MD [facility] [place] [address] NEUROLOGY DEPT. [phone] [place], [place] [address] (Wo rk) Social History Tobacco Use Types Packs/Day Years Used Date Never Assessed Sex Assigned at Date Recorded Male 05/29/2021 11:28 PM EDT documented as of this encounter Plan of Treatment Not on filedocumented as of this encounter Procedures Procedure Name Priority Date/Time Associated Diagnosis Comme nts FILM LIBRARY Routine 04/27/2010 3:35 PM Results f or this STORAGE ONLY CT EDT procedure ar e in HEAD the results section. documented in this encounter Results FILM LIBRARY- STORAGE ONLY CT HEAD (04/27/2010 3:35 PM EDT) Specimen (Source) Anatomical Collection Method Collection Time Re ceived Time Location / / Volume Laterality 04/27/2010 3:35 PM EDT Narrative [facility] - 02/24/2014 1:35 AM EDT This is a non-reportable exam. Procedure Note Rylan Mccarthy - 02/24/2014Formatting of t his note might be different from the original. This is a non-reportable exam. Geoffrey Martinez MD IMG FILM LIBRARY ORDERABLES Performing Organization Address City/State/ZIP Code [facility] e Number DH RAD DH RAD [address] [facility] [place] [address] documented in this encounter Visit Diagnoses Not on filedocumented in this encounter Care Teams Engineering Research Manager Relationship Specialty Start Date End Date Anna Mullen MD PCP - General 12/03/10 [address] [place] [address] documented as of this encounter
--- OUTSIDE RECORDS SUMMARY | 2022-03-13 18:37 | XMS_ITS | Encounter Summary ---
:1965 Author Organization [facility] [place] [address] Care Team Providers Name Role Phone Anna Mullen MD Primary Care Provider Reason for Visit Reason Comments Follow-up Encounter Details Date Type Department Care Team Description 05/13/2011 Follow-Up Gastro[place]ology at [facility] Mauricio Gonsalez, Gastroparesis (Primary [facility] Unique pham MD Dx) [place] [address] [place] [address] [facility] [address] Social History Tobacco Use Types Packs/Day Years Used Date Never Smoker Smokeless Tobacco: Never Used Alcohol Use Standard Drinks/Week Comments Not Asked 0 (1 standard drink = 0.6 oz pure alcoho l) Sex Assigned at Date Recorded Male 05/29/2021 11:28 PM EDT documented as of this encounter Last Filed Vital Signs Vital Sign Reading Time Taken Comments Blood Pressure 133/77 05/13/2011 9:24 AM EDT Pulse 61 05/13/2011 9:24 AM EDT Temperature - - Respiratory Rate - - Oxygen Saturation - - Inhaled Oxygen Concentration - - Weight 102.8 kg (226 lb 9.6 oz) 05/13/2011 9:24 AM EDT Height 182.9 cm (6') 05/13/2011 9:24 AM EDT Body Mass Index 30.73 05/13/2011 9:24 AM EDT documented in this encounter Progress Notes Mauricio Gonsalez MD - 05/27/2011 12:53 PM EDT Subjective: Patient ID: Richard Hsu is a 45 y.o. male. HPI Review of Systems Objective: Physical Exam Assessment and Plan: No problem-specific visit notes found for this encounter. Richard Hsu A#: [id number] : 69 GENDER: M PROVIDER: Mauricio Gonsalez MD, PhD ([id number]) REQUESTING PROVIDER(S): PCP: Anna Mullen MD This is a very nice 45-year-old man who returns today in followup. I first saw him for a third opinion on 08/01/09 regarding issues related to his diabetes. His weight at that visit was 224 pounds. At the end of our visit, based on symptoms consistent with mild gastroparesis, we had him follow a gastroparesis diet, had him follow lifestyle modifications for JULIUS, and had him start erythromycin. On review, the erythromycin worked well, but almost too well, meaning that it caused some mild diarrhea and some urgency. He stopped the erythromycin on his own. He then ordered domperidone from [facility] (he had lost our sheet which has patients obtain it from [facility], a confirmed, legitimate source)and he felt that 10 mg twice daily improved symptoms for the first month, but then when he reorderedit it did not improve symptoms. This raises the issue of whether the dose was high enough, or more likely may not have received the actual medication (there are significant problems with drugs obtainedfrom [place] and [place]). On review today, his weight is up to 226 pounds. He does not vomit. He occasionally has some nausea.He has some mild epigastric fullness and bloating. His symptoms are somewhat bothersome, but not overly so. In terms of reflux, he has reflux many nights, usually after dinner. In the past, trials of Prilosec, Nexium, and Zantac caused diarrhea. There is a clear cause and effect, as when he starts the medications diarrhea develops and when he stops the medications the diarrhea resolves. We discussed the pathophysiology of this; we also discussed his upper endoscopy in July 2009, which showed a normal esophagus. We had a lengthy discussion about his symptoms; I did my best to answer his questions, and a treatment plan is outlined below. ALLERGIES: Simvastatin ADR: 1. Nexium, Prilosec, Zantac all caused diarrhea 2. Metoclopramide - twitching; tardive dyskinesia MEDICATIONS: .cmed PAST MEDICAL HISTORY: Same as 08/01/09 note. PAST SURGICAL HISTORY: Same as 08/01/09 note. SOCIAL HISTORY: Same as 08/01/09 note. Update: Recent marriage (03/09/10). HABITS: Same as 08/01/09 note. FAMILY HISTORY: Same as 08/01/09 note. RECENT TESTING: Same as 08/01/09 note. In addition, echocardiogram spring 2010: normal. MEDICATION TRIALS: 1. Metoclopramide: helped bloating and pain 2. Carafate: no help with GI symptoms 3. Nexium - helped heartburn; caused diarrhea 4. Prilosec - helped heartburn; caused diarrhea 5. Prevacid - helped heartburn; caused diarrhea 6. Zantac - helped heartburn; caused diarrhea. IMPRESSIONS/RECOMMENDATIONS 1. Diabetic gastroparesis. Continue small, frequent, low-fat meals. Retrial of domperidone using a legitimate source ([place]). Start at 10 mg p.o. b.i.d. and over one month increase to 10 mg p.o. q.i.d. 2. Lifestyle modifications for JULIUS. 4. Trial of Protonix for reflux using 40 mg before dinner every third day and then increasing to 40 mg before dinner every other day. 5. Patient will call back in followup in one month, and I will see him in followup in six months. I spent 30 minutes with the patient; the entire visit was spent in leey-lr-citm counseling. Patient will follow up with his jamb cutter and oncology specialist as scheduled. Mauricio Gonsalez, PhD, MD nutrition counselor Section of Gastroenterology and Hepatology [facility] [address] V: [phone] F: [phone] TORIE/balwinder CC/EC: Anna Mullen MD [facility] [address] [place] [address] Divya Coles MD [facility] Endocrinology documented in this encounter Plan of Treatment Not on filedocumented as of this encounter Visit Diagnoses Diagnosis Gastroparesis - Primary documented in this encounter Care Teams Mattress Stripper Relationship Specialty Start Date End Date Anna Mullen MD PCP - General 12/03/10 [address] [place] [address] documented as of this encounter
--- OUTSIDE RECORDS SUMMARY | 2022-03-13 18:37 | XMS_ITS | Encounter Summary ---
:1965 Author Organization [facility] [place] [address] Care Team Providers Name Role Phone Anna Mullen MD Primary Care Provider Reason for Visit Reason Onset Date Comments Medication Refill 01/01/2011 Encounter Details Date Type Department Care Team Description 01/01/2011 Refill Endocrinology at [facility] Divya Hermosillo MD [facility] [place] [address] ENDOCRINOLOGY DEPT. [phone] [place], [place] [address] (Wo rk) Social History Tobacco [...] on filedocumented in this encounter Care Teams Tank Truck Loader Relationship Specialty Start Date End Date Anna Mullen MD PCP - General 12/03/10 [address] [place], [place] [address] documented as of this encounter
--- OUTSIDE RECORDS SUMMARY | 2022-03-13 18:37 | XMS_ITS | Encounter Summary ---
:1965 Author Organization [facility] [place] [address] Care Team Providers Name Role Phone Anna Mullen MD Primary Care Provider Reason for Referral Consultation (Routine) - Closed Specialty Diagnoses / Procedures Referred By Contact Refer red To Contact Pain Management Diagnoses LBP radiating to right leg Jesus Diana MD [facility] [address] [address] Fax: Referral ID Status Reason Start Date Expiration Date Visits V isits Requested Authorized [id number] Closed Consult, 01/28/2011 07/27/2011 1 1 Test & Treat Reason for Visit Reason Comments Disc Herniation Low back pain, radiates to l egs, ankle (Right) Encounter Details Date Type Department Care Team Description 01/28/2011 Office Visit [facility], LBP ra diating to right [place] MORENO leg (Primary Dx) [facility] [address] [place], [place] [facility] [address] [place] [address] [phone] Social History Tobacco Use Types Packs/Day Years [...] - Inhaled Oxygen Concentration - - Weight 108.9 kg (240 lb) 01/28/2011 9:29 AM EDT Height 182.9 cm (6') 01/28/2011 9:29 AM EDT Body Mass Index 32.55 01/28/2011 9:29 AM EDT documented in this encounter Progress Notes Jesus Diana MD - 01/28/2011 10:21 AM EDT Richard Hsu is a 45 y.o. male has been referred today by ANNA MULLEN MD. And by Peri Jurado in spine center. Chief complaint is low back pain, right leg pain, scoliosis History of present illness: He has had pain on a daily [...] the left side secondary to his stroke. His YUMIKO 36, PCS 32, and BMI 30.5. He adds that he picked up 3 ticks last summer, one of which was on him longer than 24 hours. He is did not have a primary care doctor at that point and is now concerned that his joints have been more painful since. 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 He recovered much of the neurodeficit, but remained active physically with a heparetic gaqian, left sides weakness and spasticity, and a short left leg, uses heel raise on theleft, and developed scoliosis in lumbar spine convex towards right. He also has HTN, Insulin dependent DM, Mild Asthma, Angina, and is due to have stress test by Dr. Reddy, Stave Bolt Equalizer. His recent test for Lyme disease was negative. Review of systems is positive for chest pain with dyspnea, this occurs on a monthly basis and he hasbeen known to take nitroglycerin. He also has symptoms of gastroesophageal reflux disease and gastroparesis. No other bowel or bladder issues. 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 He is a nonsmoker and nondrinker. Lives in [facility] with his spouse. Family history includes diabetes, heart problems, spine problems, arthritis, hypertension, stroke. O-E: Observation: He is a pleasant 6 foot gentleman with with a stated weight of 225 pounds. He has good eye contact and a full range of affect. He cannot heel walk on the left, can do this on the right, hecan toe walk with some difficulty. He does has odd gait secondary to this prior stroke. Ortho Exam: Inspection of the spine shows a scoliotic deformity with his left leg shorter than his right thigh. He has a lift in his shoe. When he flexes forward to the floor there is a right lumbar hump noted. He extends normally and has minimal discomfort. Has a palpable pulses on both feet. He is more stiff with testing on the left leg. Straight leg raise causes low back pain femoral tension stretches negative Fabere maneuvers are negative. He has a leg length discrepancy of at least a half of aninch with his left being small shorter. Neuro Exam: He does continue to have the deficits on the left side secondary to the prior stroke. Motor evaluation shows 4/5 strengths in all of the testing on the left related to his initial CVA. He has decreased sensation in the whole left leg with decreased muscle mass particularly at the calf but also noted in the thigh again related to his prior stroke. He is hyperreflexive on the left leg with sustained clonus. On the symptomatic side, i.e. Right leg he developed 4/5 weakness and L5 dermatomal numbness. Has 2+reflexes on the right with no clonus. He has a positive Babinski on the left only. Images: X-ray Done recently shows left lumbar scoliosis 30 degrees. Left side of the pelvis is higher. Thereis degenerative changes in the lower lumbar spine. Sagittal balance is well maintained. MRI done recently shows significant disc degen at L4-5 and L5-S1, with severe stenosis in the lateral recess at L4-5 and moderate at L5-S1. In Summary: Mr. Hsu is a pleasant 45-year-old fit-appearing gentleman presents with LBP and Right leg pain, who has had diabetes since he was a child he is presently using an insulin pump. He had astroke at 11 years of age the left him with left-sided weakness. He is quiet active despite the co-morbidities, and is a high risk surgical canbdidate. 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 I have suggestedExercises at home. He had PT in the past. He can also try LESI at [facility] up to 3 times a year. He will be reviewed on a PRN basis. 40 min of this 60 min [id number] visit was spent in counseling her regarding different Rx options and treatment plan. documented in this encounter Plan of Treatment Scheduled Referrals Name Type Priority Associated Diagnoses Order S chedule REFERRAL TO PAIN Outpatient Referral Routine LBP radiating to Ordered: CLINIC right leg 01/28/2011 documented as of this encounter Visit Diagnoses Diagnosis LBP radiating to right leg - Primary Lumbago documented in this encounter Care Teams Brake Machine Operator Relationship Specialty Start Date End Date Anna Mullen MD PCP - General 12/03/10 [address] [place] [address] documented as of this encounter
--- OUTSIDE RECORDS SUMMARY | 2022-03-13 18:37 | XMS_ITS | Encounter Summary ---
:1965 Author Organization [facility] [place] [place] [address] Care Team Providers Name Role Phone Anna Mullen MD Primary Care Provider Reason for Visit Reason Onset Date Comments Medication Refill 06/06/2011 Encounter Details Date Type Department Care Team Description 06/06/2011 Refill Endocrinology at [facility] Divya Hermosillo MD [facility] [place] [address] ENDOCRINOLOGY DEPT. [phone] [place], [place] [address] (Wo rk) Social History Tobacco [...] on filedocumented in this encounter Care Teams Pants Busheler Relationship Specialty Start Date End Date Anna Mullen MD PCP - General 12/03/10 [address] [place], [place] [address] documented as of this encounter
--- OUTSIDE RECORDS SUMMARY | 2022-03-13 18:37 | XMS_ITS | Encounter Summary ---
:1965 Author Organization [facility] [place] [address] Care Team Providers Name Role Phone Kj Beltran MD Primary Care Provider [phone] Encounter Details Date Type Department Care Team Description 10/30/2010 Office Visit Endocrinology at [facility] Divya Hermosillo, [facility] [place] [address] [facility] [phone] ENDOCRINOLOGY DE PT. [place], [place] [address] (Wo rk) Social History Tobacco Use Types Packs/Day Years Used Date Never Assessed Sex Assigned at Date Recorded Male 05/29/2021 11:28 PM EDT documented as of this encounter Plan of Treatment Not on filedocumented as of this encounter Procedures Procedure Name Priority Date/Time Associated Diagnosis Comme nts HEMOGLOBIN A1C RUTH 10/30/2010 12:50 PM Result s for this EST procedure are i n the results section . documented in this encounter Results (ABNORMAL) HEMOGLOBIN A1C (10/30/2010 12:50 PM EST) Analysis Performed At [facility] Time Signature Hemoglobin A1C 8.6 (H) 4.3 - 6.1 CERNER % MILLENNIUM Est Avg Gluc 200 mg/dL CERNER MILLENNIUM Comment: eAG equivalents for HbA1c percentages: HbA1c(%) ?eAG(mg/dL) 6.0 ?126 6.5 ?140 7.0 ?154 7.5 ?169 8.0 ?183 8.5 ?197 9.0 ?212 9.5 ?226 10.0 ? 240 Limitations: The eAG calculation has not been validated on women, individuals below 18 years old and above 70 years old, and individuals with hemoglobinopathies. Additional resources are available on [facility] ADA website: ??http://professional.diabetes.org/gluc osecalculator.aspx Reference: Edinson GRISSOM, Nathaniel J, Ari R, et al. ??Tr anslating the A1C assay into estimated average glucose values. ??Diabetes Care 2008:31(8):1240-6089. Specimen Anatomical Collection Method Collection Time Receive d Time (Source) Location / / Volume Laterality Blood specimen 10/30/2010 12:50 1 (specimen) PM EST 12:58 PM EST Divya Colse MD CHEMISTRY ORDERABLES Performing Organization Address City/State/[place] [address] [facility] documented in this encounter Visit Diagnoses Not on filedocumented in this encounter Care Teams Multimedia Services Manager Relationship Specialty Start Date End Date Kj Beltran MD PCP - General 07/23/10 12/02/[address] [place] [address] [place] [address] documented as of this encounter
--- OUTSIDE RECORDS SUMMARY | 2022-03-13 18:37 | XMS_ITS | Encounter Summary ---
:1965 Author Organization [facility] [place] [address] Care Team Providers Name Role Phone Anna Mullen MD Primary Care Provider Encounter Details Date Type Department Care Team Description 07/18/2011 Orders Only [facility]iology at [facility] Layla Freeman PA [facility] [place] [address] CARDIOLOGY DEPT. [phone] [place], [place] [address] (Wo rk) Social History Tobacco [...] Name Priority Date/Time Associated Diagnosis Comme nts CARDIAC CATHETERIZATION Routine 07/21/2011 10:16 AM EST documented in this encounter Results Cardiac Catheterization (07/21/2011 10:16 AM EST) Specimen (Source) Anatomical Location Collection Method / Collectio n Time Received Time / Laterality Volume Narrative This result has an attachment that is no t available. Jameel Khan MD CARDIAC CATH ORDERABLES documented in this encounter Visit Diagnoses Not on filedocumented in this encounter Care Teams Mortgage Collector Relationship Specialty Start Date End Date Anna Mullen MD PCP - General 12/03/10 [address] [place] [address] documented as of this encounter
--- OUTSIDE RECORDS SUMMARY | 2022-03-13 18:40 | XMS_ITS | Encounter Summary ---
:1965 Author Organization [facility] Address [address] [place] [address] Care Team Providers Name Role Phone Unavailable Primary Care Provider Unavailable Encounter Details Date Type Department Care Team Description 11/21/2003 Hospital Encounter [facility] - Bharati Mendoza, Other MD [address] [facility] [address] [place] [address] [place] [address] [place] [address] (Wo rk) Social History Tobacco Use Types Packs/Day Years Used Date Never Assessed Sex Assigned at Date Recorded Not on file documented as of this encounter Discharge Disposition Disposition Code Departure Means Destination Auto Discharge documented in this encounter Plan of Treatment Not on filedocumented as of this encounter Procedures Procedure Name Priority Date/Time Associated Diagnosis Comme nts KNEE 4 OR MORE Routine 11/21/2003 9:47 EST Result s for this VIEWS procedure are i n the results section. KNEE 1 OR 2 VIEWS Routine 11/21/2003 9:47 EST Res ults for this procedure are i n the results section. documented in this encounter Results KNEE 1 OR 2 VIEWS (11/21/2003 9:47 EST) Anatomical Region Laterality Modality Other Specimen Narrative [facility] - 05/10/2009 10 :09 EDT RT KNEE PAIN. R/O OA. BILATERAL KNEES 11/21/03 FINDINGS: Two views of the left and four views of the right knee. There is minimal narrowing of both media l tibiofemoral compartments with minimal varus alignment bilaterally . There is a small right knee joint effusion. No other abnormality is seen. D 11/23/03 T 11/24/03 /kasia Procedure Note Artemio Hernandez MD - 05/10/2009 RT KNEE PAIN. R/O OA. BILATERAL KNEES 11/21/03 FINDINGS: Two views of the left and four views of the right knee. There is minimal narrowing of both media l tibiofemoral compartments with minimal varus alignment bilaterally . There is a small right knee joint effusion. No other abnormality is seen. D 11/23/03 T 11/24/03 /kasia Performing Organization Address [facility] Phon e Number [facility] [address] [place] [address] T [address] [address] KNEE 4 OR MORE VIEWS (11/21/2003 9:47 EST) Anatomical Region Laterality Modality Other Specimen Narrative [facility] - 05/10/2009 10 :09 EDT RT KNEE PAIN. R/O OA. Procedure Note Artemio Hernandez MD - 05/10/2009 RT KNEE PAIN. R/O OA. Performing Organization Address City/[facility] Code Phon e Number [facility] RADIOLOG[facility] [address] [place] [address] T [address] [address] documented in this encounter Visit Diagnoses Not on filedocumented in this encounter
--- OUTSIDE RECORDS SUMMARY | 2022-03-13 18:40 | XMS_ITS | Encounter Summary ---
:1965 Author Organization [facility] Address [address] [place] [address] Care Team Providers Name Role Phone Anna Mullen MD Primary Care Provider Encounter Details Date Type Department Care Team Description 07/08/2019 Orders Only [facility] Molina Soliz M D Dermatology - [facility] [address] [address] [address], [place] [id number] (Wo rk) Social History Tobacco Use Types Packs/Day Years Used Date Never Smoker Smokeless Tobacco: Never Used Alcohol Use Standard Drinks/Week Comments No 0 (1 standard drink = 0.6 oz pure alcoho l) Sex Assigned at Date Recorded Not on file documented as of this encounter Ordered Prescriptions Prescription Sig Dispensed Refills Start Date End Date betamethasone dipropionate Apply to legs 90 g 2 201810/10/2019 (DIPROLENE) 0.05 % cream twice [id number], then daily x2wks then every other day as needed. Avoid face groin or skin folds documented in this encounter Plan of Treatment Not on filedocumented as of this encounter Visit Diagnoses Not on filedocumented in this encounter Care Teams Template Worker Relationship Specialty Start Date End Date Anna Mullen MD PCP - General 05/18/18 [address] [place] [address] documented as of this encounter
--- OUTSIDE RECORDS SUMMARY | 2022-03-13 18:40 | XMS_ITS | Encounter Summary ---
:1965 Author Organization [facility] Address [address] [place] [address] Care Team Providers Name Role Phone Anna Mullen MD Primary Care Provider Reason for Visit Reason Comments Other Encounter Details Date Type Department Care Team Description 12/09/2019 Refill [facility] Molina Soliz M D Other Dermatology - [facility] [address] [address] [place] [address] (Wo rk) Social History Tobacco Use Types Packs/Day Years Used Date Never Smoker Smokeless Tobacco: Never Used Alcohol Use Standard Drinks/Week Comments No 0 (1 standard drink = 0.6 oz pure alcoho l) Sex Assigned at Date Recorded Not on file documented as of this encounter Ordered Prescriptions Prescription Sig Dispensed Refills Start Date End Date betamethasone dipropionate APPLY TO LEGS TWO 90 g 2 01/24/2020 (DIPROLENE) 0.05 % cream TIMES A DAY FOR 2 WEEKS, DAILY FOR 2 WEEKS THEN EVERY OTHER DAY NEEDED (AVOID FACE, GROIN, SKIN FOLDS) documented in this encounter Miscellaneous Notes Telephone Encounter - Nan Cantu MA - 12/09/2019 0959 EDT Medication: BETAMETHASONE DP 0.05% CRM Diagnosis: Rash Last Office Visit: 06/24/2019 Next Office Visit: TBS Last Refill: 10/10/2019 documented in this encounter Plan of Treatment Not on filedocumented as of this encounter Visit Diagnoses Not on filedocumented in this encounter Discontinued Medications Medication Sig Discontinue Reason Start Date End Date betamethasone dipropionate APPLY TO LEGS 10/10/2019 12/09/2019 (DIPROLENE) 0.05 % cream TWICE A DAY FOR 2 WEEK, THEN DAILY FOR 2 WEEK,THEN EVERY OTHER DAY NEEDED (AVOID FACE, GROIN OR SKIN FOLDS) documented as of this encounter Care Teams Shrimp Trawler Relationship Specialty Start Date End Date Anna Mullen MD PCP - General 05/18/[address] [place] [address] documented as of this encounter
--- OUTSIDE RECORDS SUMMARY | 2022-03-13 18:40 | XMS_ITS | Encounter Summary ---
:1965 Author Organization [facility] Address [address] [place] [address] Care Team Providers Name Role Phone Anna Mullen MD Primary Care Provider Encounter Details Date Type Department Care Team Description 03/12/2022 Lab Requisition [facility] Outr Resulting Lab, Pathology & Laboratory Provider [facility] [address] [place], [place] [address] Social History Tobacco Use Types Packs/Day Years Used Date Never Smoker Smokeless Tobacco: Never Used Alcohol Use Standard Drinks/Week Comments No 0 (1 standard drink = 0.6 oz pure alcoho l) Sex Assigned at Date Recorded Not on file documented as of this encounter Plan of Treatment Not on filedocumented as of this encounter Procedures Procedure Name Priority Date/Time Associated Diagnosis Comme nts COVID-19 TEST [facility] Today 03/11/2022 23:24 LAB PCR EDT COVID-19 TESTING Routine 03/11/2022 23:24 Results for this EDT procedure are i n the results section. documented in this encounter Results COVID-19 TEST [facility] LAB PCR (03/11/2022 23:24 EDT) Specimen Swab Performing Organization Address City/State/ZIP Code Phon e Number [facility] [address] [place] [address] SERVICES COVID-19 TESTING (03/11/2022 23:24 EDT) COVID-19 rt-PCR Negative Negative [facility] Result Comment: [facility] This test has not been FDA c leared or approved. This test has been authorized by FDA under an EUA for use by authorized laboratories. This test has been authorized only for detection of nucleic acid fro SERVICES m 2019-nCoV, not for any oth er viruses or pathogens. This test is only authorized for the duration of the declaration that circumstances exist justifying the authorization of emergency use of in vitro d iagnostic tests for detectio n and/or diagnosis of 2019-nCoV under section 564(b)(1) of Act, 21 U.S.C ?? 360bbb-3(b) (1), unless the authorization is terminated or revoked sooner. Negative results do not prec lude 2019-nCoV infection and should not be used as the sole basis for treatment or other patient management decisions. Negative results must be combined with clinical observa tions, patient history, and epidemiological informatio n. Testing was performed using the darin SARS-CoV-2 assay ([employer]ora [employer] on the Darin 6800 System Performing Lab Darin 6800 [facility] Lab [facility] SERVICES Specimen Swab Performing Organization Address City/State/ZIP Code Phon e Number [facility] [address] [place] [address] SERVICES documented in this encounter Visit Diagnoses Not on filedocumented in this encounter Care Teams Assistant To The Director Relationship Specialty Start Date End Date Anna Mullen MD PCP - General 05/18/[address] [place] [id number] documented as of this encounter
--- OUTSIDE RECORDS SUMMARY | 2022-03-13 18:40 | XMS_ITS | Encounter Summary ---
:1965 Author Organization [facility] Address [address] [place] [address] Care Team Providers Name Role Phone Anna Mullen MD Primary Care Provider Reason for Visit Reason Comments Other Encounter Details Date Type Department Care Team Description 04/22/2020 Refill [facility] Molina Soliz M D Other Dermatology - [place] [address] [address] [place], [place] [address] (Wo rk) Social History [...] End Date betamethasone dipropionate APPLY TO LEGS TWICE 90 g 2 04/23/2020 (DIPROLENE) 0.05 % cream DAILY FOR 2 WEEKS, DAILY FOR 2 WEEKS, THEN EVERY OTHER DAY NEEDED AVOID FACE,GROIN AND SKIN FOLDS documented in this encounter Miscellaneous Notes Telephone Encounter - Nan Cantu MA - 04/23/2020 0916 EDT Medication: BETAMETHASONE DP 0.05% CRM Diagnosis: Rash Last Office Visit: 06/24/2019 Next Office Visit: 04/24/2020 Last Refill: 01/24/2020 documented in this encounter Plan of Treatment Not on filedocumented as of this encounter Visit Diagnoses Not on filedocumented in this encounter Discontinued Medications Medication Sig Discontinue Reason Start Date End Date betamethasone dipropionate APPLY TO LEGS 2 01/24/2020 04/23/2020 (DIPROLENE) 0.05 % cream TIMES DAILY FOR 2 WEEKS, THEN DAILY FOR 2 WEEKS, THEN EVERY OTHER DAY NEEDED *AVOID FACE, GROIN, SKIN FOLDS* documented as of this encounter Care Teams Head Of History Relationship Specialty Start Date End Date Anna Mullen MD PCP - General 05/18/[address] [place] [address] documented as of this encounter
--- OUTSIDE RECORDS SUMMARY | 2022-03-13 18:40 | XMS_ITS | Encounter Summary ---
:1965 Author Organization [facility] Address [address] [place] [address] Care Team Providers Name Role Phone Anna Mullen MD Primary Care Provider Encounter Details Date Type Department Care Team Description 11/01/2021 Lab Requisition [facility] Outr Resulting Lab, Pathology & Laboratory Provider [facility] [address] [place], [place] [id number] Social History Tobacco Use Types Packs/Day Years [...] Date/Time Associated Diagnosis Comme nts COVID-19 TEST [facility] Today 10/31/2021 14:15 LAB PCR EST COVID-19 TESTING Routine 10/31/2021 14:15 Results for this EST procedure are i n the results section. documented in this encounter Results COVID-19 TEST [facility] LAB PCR (10/31/2021 14:15 EST) Specimen Swab Performing Organization Address City/State/ZIP Code Phon e Number [facility] [address] [place] [address] SERVICES COVID-19 TESTING (10/31/2021 14:15 EST) COVID-19 rt-PCR Negative Negative [facility] Result Comment: [facility] This test [...] performed using the darin SARS-CoV-2 assay ([employer] on the Darin 6800 System Performing Lab Darin [address] [facility] Lab [facility] SERVICES Specimen Swab Performing Organization Address City/State/ZIP Code Phon e Number [facility] [address] [place] [address] SERVICES documented in this encounter Visit Diagnoses Not on filedocumented in this encounter Care Teams Medical Equipment Repair Technician Relationship Specialty Start Date End Date Anna Mullen MD PCP - General 05/18/[address] [place] [id number] documented as of this encounter
--- OUTSIDE RECORDS SUMMARY | 2022-03-13 18:40 | XMS_ITS | Encounter Summary ---
:1965 Author Organization [facility] Address [address] [place] [address] Care Team Providers Name Role Phone Anna Mullen MD Primary Care Provider Reason for Visit Reason Comments Follow-up Skin Exam FBSE spot on the right side of nose Encounter Details Date Type Department Care Team Description 12/21/[address] [facility] Prabhjot Soliz M D Neoplasm of uncertain behavior of skin ( Primary Dx); Dermatology - [address] Sun-dam aged skin; [facility]; [address] [place] [address], [place] Viral warts, unspecified typ e; [place] [address] Pav[address], Level 5 Vitiligo [phone] [place] [address] (Wo rk) Social History Tobacco Use Types Packs/Day Years Used Date Never Smoker Smokeless Tobacco: Never Used Alcohol Use Standard Drinks/Week Comments No 0 (1 standard drink = 0.6 oz pure alcoho l) Sex Assigned at Date Recorded Not on file documented as of this encounter Discharge Diagnoses Diagnosis D48.5 Neoplasm of uncertain behavior of skin-D48.5[ICD-10-CM] L57.8 Other skin changes due to chronic exposure to nonionizing radiation-L57.8[ICD-10-CM] D22.9 Melanocytic nevi, unspecified-D22. 9[ICD-10-CM] B07.9 Viral wart, unspecified-B07.9[ICD- 10-CM] L80 Vitiligo-L80[ICD-10-CM] documented in this encounter Patient Instructions Patient InstructionsGorPabhjot peña MD - 12/21/2018 8:30 EDT WOUND CARE INSTRUCTIONS FOR SKIN BIOPSY The DRESSING/BANDAID should remain in place for 24 hours. You may shower or bathe after 24 hours; remove the bandage and replace it after the shower. DISCOMFORT: Extra-Strength Tylenol, as directed by janitor cleaner, usually relieves any pain you may have. BLEEDING: You may notice some blood on the edges of the dressing the first day and this is NORMAL. If the bleeding soaks through the dressing, remove the dressing, and apply firm, steady pressure with a moist clean wash cloth for fifteen minutes. If the bleeding stops, redress the wound, if not, call our office at . ACTIVITY: You may resume normal activity in 1 day unless instructed otherwise. WOUND CARE: ?? Wash hands with soap and water before changing the dressing. ?? Change the dressing daily and when it becomes wet. Clean the wound daily with mild soap and water. You may gently loosen any crusts with a cotton swab.The wound may be slightly tender and may bleed a small amount. A small amount of discharge is normal. Apply a thin layer of sterile petroleum jelly over the wound. Cover the wound with a Telfa (non-stick) dressing or bandage. It is important to keep the wound covered. CONTACT THE OFFICE IF YOU EXPERIENCE: ?? increased redness ?? warmth to touch ?? increased pain ?? drainage with a foul odor ?? rapid swelling of the wound ?? fever or chills Please call our office or . SUN PROTECTION AND SUN SCREENS IF YOU OR YOUR CHILD IS GETTING A SUNTAN DESPITE USING SUNSCREEN, THEY ARE STILL GETTING TOO MUCH SUN! YOU WILL NEED TO USE COVER-UP CLOTHING AND KEEP THEM OUT OF THE SUN! Most of a person's lifetime sun exposure occurs before the age of 18. Skin cancer can be prevented. Protect yourself and your child from the sun. Avoiding the sun is the best protection. Repeated and prolonged exposure to sunlight greatly increases your risk of all types of skin cancer.In addition, chronic sun exposure is the major cause of wrinkles, spotty, and unhealthy appearing skin. It???s important to have a healthy and active lifestyle and we encourage you to continue this. However, some common sense guidelines will help to keep your skin safe. ?? Avoid the hot mid-day sun (10 AM to 2 PM). Try to schedule your outdoor activities for hazardous waste material technician or early evening. ?? Make clothing a regular part of protection. Keep your shirt on - wear long sleeves and a wide brimmed hat. ?? Be especially careful when on the water, snow, or sand, as sunlight is reflected upwards from these surfaces. ?? Don???t forget your eyes and lips! Wear sunglasses - sun exposure increases your risk for cataracts. Wear lip balm with an SPF. ?? Make sure your children practice good sun protection. Early sun damage increases their risk of developing skin cancer. ?? Wear a sunscreen. We recommend using a sunscreen with both UVA and UVB protection and a SPF of atleast 30. If you sunburn more easily or are in more intense sun, you will need a higher SPF. A ???waterproof?? sunscreen is usually good for about 2 hours, even if you???re swimming. A sunscreen should be reapplied every 2 hours and after swimming. Remember to put sunscreen on your ears and lips. There are many lip balms available with sunscreen. For more information about sun protection, skin cancer, and all skin topics, visit: www.skincancer.org and www.aad.org Sunscreens: Sunlight is made up of different wavelengths, some of which we can see as the various colors of therainbow, or ???visible?? light. UVA and UVB are invisible wavelengths, which penetrate into the skin and in excess amounts, cause injury. When the injury is severe, skin cells and become inflamed and we see sunburn. UVB causes sunburn more quickly than UVA and most sunscreens are targeted towardsthis wavelength. Tanning while wearing sunscreen may mean that primarily UVA light is reaching the skin. This is the same UVA light that is used in tanning beds and is responsible for causing wrinkles,brown spots and melanoma. For this reason, we recommend that you don???t use tanning beds and that you use sunscreen with both UVA and UVB protection. Some recommended sunscreen brands: --THERE ARE MANY GOOD SUNSCREEN BRANDS. MAKE SURE YOUR SUNSCREEN IS LABELED BROAD SPECTRUM AND HASAN SPF 30 OR HIGHER. --For sensitive skin, babies, lupus, dermatomyositis, and porphyria cutanea tarda, look for sunscreens that contain Zinc Oxide & Titanium Dioxide. These are often labeled baby or sensitive. They will apply whiter but are more gentle. Some specific sunscreen brands: ?? Blue Lizard ?? Coppertone ?? Neutrogena ?? Bull Frog ?? Banana Boat ?? Aveeno ?? Tizo ?? Mark MORENO Recommended resources for sun protective clothing and hats: ?? http://www.[employer] ?? http://www.[employer] ?? http://www.[employer] documented in this encounter Discharge Disposition Disposition Code Departure Means Destination Auto Discharge documented in this encounter Progress Notes Prabhjot Soliz MD - 12/21/2018 0830 EDT Dermatology Outpatient Visit Note Chief Complaint Patient presents with ??? Follow-up ??? Skin Exam FBSE spot on the right side of nose Dermatologic History: 1. History of pancreas transplant- 2012. On prograf and CellCept 2. Actinic keratoses 3. Vitiligo 4. Multiple benign nevi Last Dermatology office visit: 06/21/2018 SUBJECTIVE Mr. Hsu is a 53 y.o. male who presents for follow up for full body skin exam. Patient has a history of a pancreas transplant and is currently on Prograf and CellCept. He is concerned witha growth located on the right neck which is been present for a few months. He states that it would bleed from time to time. It does not itch and has crusted somewhat. He has not applied any topical medication to the area. He is otherwise feeling well and has no other cutaneous concerns today. He denies any other new, changing, bleeding, tender, or non-healing skin lesions today. For full Medical, Surgical, Family, and Social histories, please see the History section of this encounter in the electronic chart which I have personally reviewed. For Review of Systems, Medications and Allergies, please see those sections of this encounter in theelectronic chart which I have also reviewed. He has a current medication list which includes the following prescription(s): albuterol, aspirin chewable, gabapentin, levothyroxine, lisinopril, multivitamin, mycophenolate, pantoprazole, tacrolimus,and venlafaxine. He is allergic to nexium [esomeprazole magnesium] and reglan [metoclopramide hcl]. OBJECTIVE VS: There were no vitals taken for this visit. Mr. Hsu is healthy and in no acute distress male sitting on the examination table with a normal affect. He is alert and oriented to person, place and time. He has Cueva type II skin. Cutaneous full body examination including the hair, scalp, face, eyelids, lips, neck, chest, back, abdomen, all four extremities, hands, feet, digits and nails was performed.The examination was normal with the addition of the following comments: On the right neck there is a 4-5 mm pink papule On the right hand there are 4-5 vertical papules There are scattered brown macules and soft brown papules looking in the trunk and extremities There are brown macules on photo distributed areas located on the arms, shoulders, upper back There are hypopigmented to depigmented patches on the right arm and upper back. ASSESSMENT/PLAN 1. Neoplasm of uncertain behavior ?? BCC versus SK versus cyst versus other ?? Given the diagnostic uncertainty, offered to biopsy this today. Pt agrees. Discussed the risks ofa biopsy to include bleeding, infection and scarring. We try to minimize all three but it is inevitable that scarring will occur. Pt agrees that the benefit of the biopsy takes precedence. See procedure note below for details. 2. Nevus ?? No suspicious features on exam. No treatment unless there would be changes. ABCDE's of melanoma discussed as well as the importance of the ugly duckling rule and self skin exams at least monthly or every other month of which the patient showed a good understanding. 3. Sun damaged skin ?? The nature of sun-induced photo-aging and skin cancers is discussed. Sun avoidance, protective clothing, and the use of 30-SPF sunscreens is advised. Observe closely for skin damage/changes, and call if such occurs. 4. Vitiligo ?? Discussed the importance of sunscreen over the affected areas. ?? Patient did not wish to treat lesions as they did not bother him. ?? Explained that lesions can expand and can offer treatment again pending clinical reexamination 5. Warts -Explained that patient is at risk for increased number of warts as he is immunosuppressed. -Offered treatment at this visit however patient declined as lesions do not bother him. He will f/u in 6 months for full body skin exam or in the interim should problems arise. SHAVE BIOPSY PATIENT INFORMATION: Reese Hsu : MRN: [id number] SURGEON: Prabhjot Soliz MD The indication, risks, benefits and alternatives to this procedure were discussed in detail with thepatient and all questions were answered. Informed consent was obtained in writing. PROCEDURE NOTE Specimen A Procedure: Tangential Shave Indication: Diagnostic Biopsy Site: right neck Anesthesia: 1% lidocaine with epinephrine 1:100,000 local infiltration Prep: Alcohol The lesion was prepped as above and locally anesthetized. The specimen was removed by tangential shave using a Dermablade??. Hemostasis was achieved with pressure and/or aluminum chloride. The wound was cleansed with alcohol and a sterile dressing was applied over Petrolatum ointment. Verbal and written wound care instructions were given.The specimen was submitted to pathology for histological evaluation. Prabhjot Soliz MD 12/21/2018 8:30 Nan Shrestha - 12/21/2018 0830 EDT Review of Systems Constitutional: Positive for fatigue and unexpected weight change. Negative for fever. HENT: Negative for mouth sores. Eyes: Negative for pain. Respiratory: Negative for cough and shortness of breath. Cardiovascular: Negative for chest pain and palpitations. Gastrointestinal: Negative for abdominal pain, blood in stool, constipation, diarrhea, nausea and vomiting. Genitourinary: Negative for dysuria, frequency and hematuria. Musculoskeletal: Positive for myalgias and muscle stiffness in the morning. Negative for joint swelling and arthralgias. Skin: Negative for rash. Neurological: Negative for numbness and headaches. Endo/Heme/Allergies: Does not bruise/bleed easily. Psychiatric/Behavioral: Positive for sleep disturbance. The patient is not nervous/anxious. Nan Cantu 12/21/2018 8:15 documented in this encounter Plan of Treatment Scheduled Orders Name Type Priority Associated Diagnoses Order S chedule SURGICAL PATHOLOGY- Pathology Routine Neoplasm of Uncertain Ordered: 12/21/2018 ORDER ONLY Behavior of Skin documented as of this encounter Procedures Procedure Name Priority Date/Time Associated Diagnosis Comme nts SURGICAL PATHOLOGY Routine 12/21/2018 10:53 Resul ts for this EDT procedure are i n the results section. documented in this encounter Results SURGICAL PATHOLOGY (12/21/2018 10:53 EDT) Pathology Report: SURGICAL PATHOLOGY REPORT [facility] Reports generated via electronic interface contain debra ginal data; LABORATORY however they are lacking the format of the original re port. SERVICES Caution should be taken when reading/interpreting unfo rmatted reports. Name: ? REESE HSU ? Accession #: ? [id number] ? : ? 1965 (Age: 7 1) ??M ? Collect Date: ? 12/21/2018 ? Location: ? DERM ? Receive Date: ? 12/22/19 19 ? Provider: PRABHJOT SOLIZ MD Copy to: ? Final Pathologic Diagnosis: SKIN OF NECK, RIGHT, SHAVE BIOPSY: - Acute folliculitis with evidence of rupture and scar . Document reviewed and electronically signed by: ZEINA BELLO MD Report ??Date: 12/22/2018 12:59 By the signature above, the attending physician certif ies that he/she has personally conducted a gross and/or microscopic examin ation of the described specimens and rendered or confirmed the above diagnosi s. Specimen(s) Received: Right neck Clinical History: Non healing pink papule on sun damaged skin; BCC vs SK vs other; clinical diagnosis code: ??D48.5 Gross Description: ? Received in formalin labelled with proper patient identification (initials C, R) and right neck is a shave biopsy of ramos-white firm papule (0.5 x 0.4 x 0.1 cm). The margin is inked blue. Bisected and submit cate in 1. Thu Baxter 12/21/2018 11:33 AM End of Report Specimen Performing Organization Address City/State/ZIP Code Phon e Number [facility] [address] [place] [id number] SERVICES documented in this encounter Visit Diagnoses Diagnosis Neoplasm of uncertain behavior of skin - Primary Sun-damaged skin Other dermatitis due to solar radiation Nevus Benign neoplasm of skin, site unspecifie d Viral warts, unspecified type Vitiligo documented in this encounter Historical Medications This list may reflect changes made after this encounter. Medication Sig Dispensed Refills Start Date End Date ALBUTEROL INHL Inhale 2.5 mg as directed 2 0 times daily. added in this encounter Care Teams Field Crew Chief Relationship Specialty Start Date End Date Anna Mullen MD PCP - General 05/18/[address] [place] [id number] documented as of this encounter
--- OUTSIDE RECORDS SUMMARY | 2022-03-13 18:40 | XMS_ITS | Clinical Summary ---
:1965 Author Organization [facility] Address [address] [place] [address] Care Team Providers Name Role Phone Anna Mullen MD Primary Care Provider Allergies Active Allergy Reactions Severity Noted Date Comments Esomeprazole Magnesium 06/21/2018 Metoclopramide Hcl 06/21/2018 Medications Medication Sig Dispensed Refills Start Date End Date Status mycophenolate Take 500 mg by 0 A ctive (CELLCEPT) 250 mg mouth 2 times capsule daily. tacrolimus (PROGRAF) 1 Take 2 mg by 0 Active mg capsule mouth 2 times daily. Pantoprazole (PROTONIX) Take 40 mg by [address] Active [address] for mouth 2 times susp in packet daily. gabapentin (NEURONTIN) Take 300 mg by 0 Active 300 mg capsule mouth 3 times daily. 300 mg in Am, 600 mg with dinner, and 300 at bedtime. 5 tablets a day aspirin chewable 81 mg Take 81 mg by 0 Active tablet mouth daily. levothyroxine Take 150 mcg by 0 Active (SYNTHROID) 150 mcg mouth daily. tablet venlafaxine Take 150 mg by 0 Act kate (EFFEXOR-XR) 150 mg XR mouth daily. capsule 225mg daily lisinopril (PRINIVIL, Take 60 mg by 0 Active ZESTRIL) 30 mg tablet mouth 2 times daily. MULTI-VITAMIN ORAL Take 2 Tabs by 0 Active mouth daily. ALBUTEROL INHL Inhale 2.5 mg as 0 Active directed 2 times daily. betamethasone APPLY TO LEGS 90 g 2 04/23/2020 A ctive dipropionate TWICE DAILY FOR 2 (DIPROLENE) 0.05 % WEEKS, DAILY FOR cream 2 WEEKS, THEN EVERY OTHER DAY NEEDED AVOID FACE,GROIN AND SKIN FOLDS Additional Information Patient not taking. Reported on 04/24/2020 clopidogrel bisulfate (PLAVIX ORAL) Take 75 mg by mouth. 0 Active atorvastatin calcium (LIPITOR ORAL) Take 10 mg by mouth. 0 Active verapamiL (CALAN) 120 mg tablet Take 120 mg by mouth 3 times 0 Active daily. Active Problems No known active problems Encounters Date Type Specialty Care Team Description 03/12/2022 Lab Requisition Clinical Laboratory Outr Resulting Lab , Provider from Last 3 Months Surgical History Surgery Date Site/Laterality Comments APPENDECTOMY BACK SURGERY Medical History Medical History Date Comments Arthritis Heart murmur Cerebral artery occlusion with cerebral infarction (HCC-CMS) (HCC) Hypertension Thyroid disease Family History Medical History Relation Name Comments Heart Disease Brother Arthritis Father Substance Abuse Father Diabetes Maternal Grandfather Diabetes Maternal Grandmother High Cholesterol Mother Diabetes Paternal Grandfather Stroke Paternal Grandfather Diabetes Paternal Grandmother Substance Abuse Paternal Uncle Relation Name Status Comments Brother Alive Father Alive Maternal Aunt Maternal Grandfather Maternal Grandmother Maternal Uncle Mother Alive Paternal Aunt Paternal Grandfather Paternal Grandmother Paternal Uncle Social History Tobacco Use Types Packs/Day Years Used Date Never Smoker Smokeless Tobacco: Never Used Alcohol Use Standard Drinks/Week Comments No 0 (1 standard drink = 0.6 oz pure alcoho l) Sex Assigned at Date Recorded Not on file Plan of Treatment Health Maintenance Due Date Last Done Comments Hepatitis C Screen 1965 COVID-19 Vaccine (1) 1979 Procedures Procedure Name Priority Date/Time Associated Diagnosis Comme nts COVID-19 TEST [facility] Today 03/11/2022 23:24 LAB PCR EDT COVID-19 TESTING Routine 03/11/2022 23:24 Results for this EDT procedure are i n the results section. from Last 3 Months Results COVID-19 TEST [facility] LAB PCR (03/11/2022 23:24 EDT) Specimen Swab Performing Organization Address City/State/ZIP Code Phon e Number [facility] [address] [place] [address] SERVICES COVID-19 TESTING (03/11/2022 23:24 EDT) COVID-19 rt-PCR Negative Negative [facility] MEDICAL Result Comment: CENTER LABORATORY This test [...] was performed using the darin SARS-CoV-2 assay ([employer] on the Darin 6800 System Performing Lab Darin [address] [facility] Lab [facility] SERVICES Specimen Swab Performing Organization Address City/State/ZIP Code Phon e Number [facility] [address] [place] [address] SERVICES from Last 3 Months Insurance Payer Benefit Plan / Subscriber ID Effective Phone Address T ype Group Dates [facility] [place] [id number] 2018-Prese [phone] [address] [employer] nt [address] [place] [address] ShellycrystalRichard Wilmer Personal/Family Self 1965 [address] [phone] [facility] [place] ([place]) [place] [address] AracelisRichard Wilmer Personal/Family Self 1965 [address] [phone] [facility] [place] ([place]) [place] [address] AracelisRichard Wilmer Personal/Family Self 1965 [address] [phone] [facility] , ([place]) [place] [address] Richard Hsu Personal/Family Self 1965 [address] [phone] [facility] , ([place]) [place] [address] ShellycrystalRichard Wimler Personal/Family Self 1965 [address] [phone] [facility] , ([place]) [place] [address] AracelisRichard Wilmer Personal/Family Self 1965 [address] [phone] [facility] , ([place]) [place] [address] AracelisRichard Wilmer Personal/Family Self 1965 [address] [phone] [facility] , ([place]) [place] [address] Care Teams House Mover Supervisor Relationship Specialty Start Date End Date Anna Mullen MD PCP - General 05/18/18 [address] [place] [address]
--- OUTSIDE RECORDS SUMMARY | 2022-03-13 18:40 | XMS_ITS | Encounter Summary ---
:1965 Author Organization [facility] Address [address] [place] [address] Care Team Providers Name Role Phone Unavailable Primary Care Provider Unavailable Encounter Details Date Type Department Care Team Description 02/22/2004 Hospital Encounter [facility] - Bharati Mendoza, [facility] [address] [facility] [address] [place] [address] [address] [place] [address] (Wo rk) Social History Tobacco Use Types Packs/Day Years Used Date Never Assessed Sex Assigned at Date Recorded Not on file documented as of this encounter Discharge Disposition Disposition Code Departure Means Destination Auto Discharge documented in this encounter Plan of Treatment Not on filedocumented as of this encounter Procedures Procedure Name Priority Date/Time Associated Diagnosis Comme nts MR LOWER EXT JOINT Routine 02/22/2004 11:06 Resul ts for this WO CONTRAST EDT procedure are i n the results section. documented in this encounter Results MR LOWER EXT JOINT WO CONTRAST (02/22/2004 11:06 EDT) Anatomical Region Laterality Modality Other Specimen Impressions [facility] - 05/09/2009 16 :44 EDT IMPRESSION: 1. Patchy marrow signal predominantly wi thin the femur, but also seen within the right tibia likely represents changes of reflex sympathetic dystrophy. 2. No evidence of osteoarthritis or cart ilage injury. /sang Narrative [facility] - 05/09/2009 16 :44 EDT RT KNEE PAIN R/O OA/CARTILAGE INJURY MRI OF THE RIGHT KNEE 02/22/04 1000 COMPARISON: None TECHNIQUE: Proton weighted sagittal and coronal, pr oton weighted coronal with fat suppression, T2 weighted sagittal, and g radient echo axial images. FINDINGS: Patchy high signal is seen on T2 weighte d images in the metaphysis and extending into the epiphysis, predominan tly in the femur, but also within the tibia. No fractures are ident ified. Both medial and lateral menisci are inta ct. The anterior and posterior cruciate ligaments are normal. The iliotibial band, bilateral fibular collateral ligament an d biceps femoris tendons are normal. Enthesopathic changes are seen in the cheek perior aspect of the anterior portion of the patella. Cartilage is pre served and no knee effusion is identified. Procedure Note Adan Steele MD / Dee Montero MD - 05/09/2009 RT KNEE PAIN R/O OA/CARTILAGE INJURY MRI OF THE RIGHT KNEE 02/22/04 1000 COMPARISON: None TECHNIQUE: Proton weighted sagittal and coronal, pr oton weighted coronal with fat suppression, T2 weighted sagittal, and g radient echo axial images. FINDINGS: Patchy high signal is seen on T2 weighte d images in the metaphysis and extending into the epiphysis, predominan tly in the femur, but also within the tibia. No fractures are ident ified. Both medial and lateral menisci are inta ct. The anterior and posterior cruciate ligaments are normal. The iliotibial band, bilateral fibular collateral ligament an d biceps femoris tendons are normal. Enthesopathic changes are seen in the cheek perior aspect of the anterior portion of the patella. Cartilage is pre served and no knee effusion is identified. IMPRESSION IMPRESSION: 1. Patchy marrow signal predominantly wi thin the femur, but also seen within the right tibia likely represents changes of reflex sympathetic dystrophy. 2. No evidence of osteoarthritis or cart ilage injury. /sang Performing Organization Address City/State/ZIP Code Phon e Number [facility] [address] [facility] [address] [facility] [address] [place], [place] [address] documented in this encounter Visit Diagnoses Not on filedocumented in this encounter
--- OUTSIDE RECORDS SUMMARY | 2022-03-13 18:40 | XMS_ITS | Encounter Summary ---
:1965 Author Organization [facility] Address [address] [place] [address] Care Team Providers Name Role Phone Anna Mullen MD Primary Care Provider Reason for Visit Reason Comments Follow-up spot on scalp Encounter Details Date Type Department Care Team Description 04/24/2020 Office Visit [facility] Molina Soliz M D Neoplasm of uncertain behavior of skin ( Primary Dx); Dermatology - Main [address] [place] [address] History of pancreas transplant (HCC-CMS); [facility] Sun-damaged skin; [address] [place] [address] Multiple benign nevi; [place] [address] Pavilion, Level 5 Vitiligo; [phone] [place], [place] Arthropod bit e, sequela [phone] (Wo rk) Social History Tobacco Use Types Packs/Day Years Used Date Never Smoker Smokeless Tobacco: Never Used Alcohol Use Standard Drinks/Week Comments No 0 (1 standard drink = 0.6 oz pure alcoho l) Sex Assigned at Date Recorded Not on file documented as of this encounter Patient Instructions Patient InstructionsEdinson Garay MD - 04/24/2020 13:20 EDT CARE FOLLOWING YOUR BIOPSY- Open Wound Care ACTIVITY: ?? Avoid strenuous activity for 48 hours. Resume moderate activity after that for one week. Slowly walking/strolling is an excellent light activity during recovery. Running and weightlifting are not recommended. BATHING: ?? Keep the area of your surgery dry for the first 24 hours. ?? After 24 hours, you may shower. Gently remove the bandage, and replace it after the shower. If you bathe in a tub, the bath should be brief. BLEEDING, BRUISING, AND SWELLING: ?? It is normal for your wound to ooze a small amount of blood and stain the dressing. 1. Expect bruising and swelling in the area INFECTION: ?? It is normal for your wound to be slightly sore and pink. ?? If the area becomes increasingly tender, red or warm, or if you develop fever and chills, then contact your physician. WOUND HEALING for the biopsy: ?? One week after surgery a pink/red halo will form around the outside of the wound. This is new skin. ?? The center of the wound will appear yellowish white and produce some drainage. ?? The pink halo will slowly migrate in toward the center of the wound until the wound is covered with new shiny pink skin. ?? There will be no more drainage when the wound is completely healed. ?? It will take 6 months to a year for the redness to fade. ?? Massaging the area several times a day for several minutes after the wound is completely healed will help the scar to soften and normalize faster. Begin massage only after healing is complete. WHEN TO CONTACT YOUR PHYSICAN: ?? Your wound becomes increasingly sore, tender, red, or warm or rapidly swells documented in this encounter Progress Notes Alessandro Arcos MA - 04/24/2020 1320 EDT Review of Systems Constitutional: Negative for fatigue, fever and unexpected weight change. HENT: Negative for mouth sores. Eyes: Negative for pain. Respiratory: Negative for cough and shortness of breath. Cardiovascular: Negative for chest pain and palpitations. Gastrointestinal: Negative for abdominal pain, blood in stool, constipation, diarrhea, nausea and vomiting. Genitourinary: Negative for dysuria, frequency and hematuria. Musculoskeletal: Negative for myalgias, joint swelling, arthralgias and muscle stiffness in the morning. Skin: Negative for rash. Neurological: Negative for numbness and headaches. Endo/Heme/Allergies: Does not bruise/bleed easily. Psychiatric/Behavioral: Negative for sleep disturbance. The patient is not nervous/anxious. ALESSANDRO ARCOS MA 04/24/2020 13:13 Edinson Clark MD - 04/24/2020 1320 EDT Images from the original note were not included. Dermatology Outpatient Visit Note Chief Complaint Patient presents with ??? Follow-up spot on scalp Dermatologic History: 1. History of pancreas transplant- 2013. On prograf and CellCept 2. Actinic keratoses 3. Vitiligo 4. Multiple benign nevi Last Dermatology office visit: 06/24/2019 SUBJECTIVE: Mr. Hsu is a 54 y.o. male who presents for follow up for evaluation. He has a spot on the back of his head that has bothered him since he was stung by ~15 bees while mowing the lawn. He states thathe had many retained stingers and that he might have had one in that site. He notes that it was bleeding and painful in the past. Overall the spot is feeling better and is improving. He notes that the pink spot on his wolf has been there for 6 months. It has not had any symptoms so far. For full Medical, Surgical, Family, and Social histories, please see the History section of this encounter in the electronic chart which I have personally reviewed. For Review of Systems, Medications and Allergies, please see those sections of this encounter in theelectronic chart which I have also reviewed. He has a current medication list which includes the following prescription(s): albuterol, aspirin chewable, atorvastatin calcium, betamethasone dipropionate, clopidogrel bisulfate, gabapentin, levothyroxine, lisinopril, multivitamin, mycophenolate, pantoprazole, tacrolimus, venlafaxine, and verapamil. He is allergic to nexium [esomeprazole magnesium] and reglan [metoclopramide hcl]. OBJECTIVE: VS: There were no vitals taken for this visit. Mr. Hsu is healthy and well developed, well-nourished male sitting on the examination table witha normal affect. He has Cueva type II skin. Cutaneous full body examination including the hair, scalp, face, eyelids, lips, neck, chest, back, abdomen, all four extremities, hands, feet, digits and nails was performed.The examination was normal with the addition of comments in next section: Multiple depigmented patches on the arms and trunk. Multiple light brown macules on the trunk Vertex Scalp: Excoriated pink papule with small areas of hemorrhagic crust R wolf: [place] papule with telangiectasia ASSESSMENT & PLAN: 1. Arthropod bite sequela - At this time the spot appears to be a resolving lesion from bee stings. Will continue to monitor. Advised patient to return to clinic should it not heal/continue to persist or worsen over time. Areasare asymptomatic at this time. 2. History of pancreas transplant/sun damaged skin - The nature of sun-induced photo-aging and skin cancers is discussed. Sun avoidance, protective clothing, and the use of 30-SPF sunscreens is advised. Observe closely for skin damage/changes, and callif such occurs. ?? 3. Multiple benign nevi - The patient was reassured regarding the benign appearance of these lesions today. No further treatment is needed to the areas at this time. 4. Neoplasm of uncertain behavior of the skin???right wolf Given the patient's immunosuppression for transplant, low threshold for biopsy. Favor basal cell carcinoma versus dermatofibroma versus other. -Given the diagnostic uncertainty, offered to biopsy this today. Pt agrees. Discussed the risks of abiopsy to include bleeding, infection and scarring. We try to minimize all three but it is inevitable that scarring will occur. Pt agrees that the benefit of the biopsy takes precedence. See procedure note below for details. 5. Vitiligo -The nature of sun-induced photo-aging and skin cancers is discussed. Sun avoidance, protective clothing, and the use of 30-SPF sunscreens is advised. Observe closely for skin damage/changes, and call if such occurs. Explained that patient has an increased risk for developing skin cancer in areas of vitiligo PROCEDURE NOTE SHAVE BIOPSY PATIENT INFORMATION: Richard Hsu : MRN: [id number] SURGEON: Molina Bingham MD; Edinson Garay MD The indication, risks, benefits and alternatives to this procedure were discussed in detail with thepatient and all questions were answered. Informed consent was obtained in writing. PROCEDURE NOTE Specimen A Procedure: Tangential Shave Indication: Diagnostic Biopsy Site: right wolf Anesthesia: 1% lidocaine with epinephrine 1:100,000 local [...] was submitted to pathology for histological evaluation. Return in about 1 year (around 04/24/2021) for FBSE h/o pancreas transplant . He will f/u as planned or in the interim should problems arise. Edinson Garay MD 04/24/2020 13:35 Attestation Statement: I saw and examined the patient with the resident/fellow. I agree with the findings and plan of care documented in the resident's/fellow's note. I was present for the entire procedure. Molina Soliz MD Dermatology [facility] documented in this encounter Miscellaneous Notes Result QuickNote - Alessandro Arcos MA - 04/24/2020 1320 EDT Spoke to the patient regarding results. The patient showed understanding and had no further questions at this time. ALESSANDRO ARCOS MA 04/27/2020 14:30 documented in this encounter Plan of Treatment Not on filedocumented as of this encounter Procedures Procedure Name Priority Date/Time Associated Diagnosis Comme nts SURGICAL PATHOLOGY Routine 04/24/2020 13:31 Neoplasm of Resul ts for this EDT uncertain behavior procedure are in of skin the results section. documented in this encounter Results SURGICAL PATHOLOGY (04/24/2020 13:31 EDT) Final Diagnosis A. SKIN OF WOLF, RIGHT, SHAVE BIOPSY: [facility] - Dermatofibroma. [facility] Attestation By the signature [facility] Electronica lly below, the attending CENTER signed by physician Ariana certifies LABORATORY Kacey Barrera MD on that they have 1) SERVICES 04/26/2020 at 1333 personally conducted a gross and/or microscopic examination of the described specimen(s), and/or personally interpreted the results of laboratory testing of the described specimen(s), and 2) personally rendered or confirmed the above diagnosis. Clinical History R wolf: 3mm pink [facility] papule with CENTER telangiectasia; R/O LABORATORY BCC vs DF vs other SERVICES Gross Description A. [facility] Received in formalin camron d with proper patient identification (initials C, R) and R wolf is a ramos-white skin shave biopsy measuring 0.8 x 0.7 x 0.1 cm. Inked, trisected and submitted entirely in A1. [facility] Mary Contreras 04/24/2020 17:42 SERVICES Performing Lab [facility] Scanned Images [facility] Specimen Tissue - Skin (tissue) specimen (specime n) Performing Organization Address City/State/ZIP Code Phon e Number [facility] [address] [place] [address] SERVICES documented in this encounter Visit Diagnoses Diagnosis Neoplasm of uncertain behavior of skin - Primary History of pancreas transplant (HCC-CMS) (HCC) 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 Sun-damaged skin Other dermatitis due to solar radiation Multiple benign nevi Benign neoplasm of skin, site unspecifie d Vitiligo Arthropod bite, sequela documented in this encounter Historical Medications This list may reflect changes made after this encounter. Medication Sig Dispensed Refills Start Date End Date verapamiL (CALAN) 120 mg Take 120 mg by mouth 0 tablet 3 times daily. atorvastatin calcium Take 10 mg by mouth. 0 (LIPITOR ORAL) clopidogrel bisulfate Take 75 mg by mouth. 0 (PLAVIX ORAL) added in this encounter Care Teams Nutrient Management Specialist Relationship Specialty Start Date End Date Anna Mullen MD PCP - General 05/18/[address] [place] [id number] documented as of this encounter
--- OUTSIDE RECORDS SUMMARY | 2022-03-13 18:40 | XMS_ITS | Encounter Summary ---
:1965 Author Organization [facility] Address [address] [place] [address] Care Team Providers Name Role Phone Anna Mullen MD Primary Care Provider Encounter Details Date Type Department Care Team Description 07/16/[address] [facility] Unknown, Provider, Pathology & Laboratory [facility] [address] [place] [address] [place], [place] [address] Social History Tobacco Use Types Packs/Day Years Used Date Never Smoker Smokeless Tobacco: Never Used Alcohol Use Standard Drinks/Week Comments No 0 (1 standard drink = 0.6 oz pure alcoho l) Sex Assigned at Date Recorded Not on file documented as of this encounter Plan of Treatment Not on filedocumented as of this encounter Procedures Procedure Name Priority Date/Time Associated Comments Diagnosis PSA TOTAL, Routine 07/15/2019 9:45 EST Results for this DIAGNOSTIC procedure are i n the results section. documented in this encounter Results PSA TOTAL, DIAGNOSTIC (07/15/2019 9:45 EST) PSA 0.5 0.0 - 3.[address] [facility] Comment: ng/mL LABORATORY SERVICES NOTE: Serum PSA concentration shou ld not be interpreted as absolute evidence for the presence or absence of malignant disease. Assayed on Siemens ADVIA Marko taur XPT using chemiluminescent technology. ??Values obtained by using different assay methods cannot be used interchangeably. Specimen Blood - Venous blood (substance) Performing Organization Address City/State/ZIP Code Phon e Number [facility] [address] [place] [address] SERVICES documented in this encounter Visit Diagnoses Not on filedocumented in this encounter Care Teams Honing Machine Set Up Operator Relationship Specialty Start Date End Date Anna Mullen MD PCP - General 05/18/18 [address] [place] [address] documented as of this encounter
--- OUTSIDE RECORDS SUMMARY | 2022-03-13 18:40 | XMS_ITS | Encounter Summary ---
:1965 Author Organization [facility] Address [address] [place] [address] Care Team Providers Name Role Phone Anna Mullen MD Primary Care Provider Reason for Visit Reason Comments Other Encounter Details Date Type Department Care Team Description 10/11/2019 Refill [facility] Molina Soliz M D Other Dermatology - Main [place] [address] [address] [address] [address] [place], [place] [address] (Wo rk) Social History Tobacco Use Types [...] on filedocumented in this encounter Care Teams Mill Turner Relationship Specialty Start Date End Date nAna Mullen MD PCP - General 05/18/[address] [place] [address] documented as of this encounter
--- OUTSIDE RECORDS SUMMARY | 2022-03-13 18:40 | XMS_ITS | Encounter Summary ---
:1965 Author Organization [facility] Address [address] [place] [address] Care Team Providers Name Role Phone Anna Mullen MD Primary Care Provider Reason for Visit Reason Onset Date Comments Biopsy Results 12/22/2018 Encounter Details Date Type Department Care Team Description 12/22/2018 Telephone [facility] Molina Soliz M D Biopsy Results Dermatology - [facility] [address] [facility] [address] [place] [address] Pavilion, [place] [phone] (Wo rk) Social History Tobacco Use Types Packs/Day Years Used Date Never Smoker Smokeless Tobacco: Never Used Alcohol Use Standard Drinks/Week Comments No 0 (1 standard drink = 0.6 oz pure alcoho l) Sex Assigned at Date Recorded Not on file documented as of this encounter Miscellaneous Notes Telephone Encounter - Nan Cantu - 12/22/2018 1328 EDT Left message for patient to call back for biopsy results. Please find me when he calls back Nan Cantu 12/22/2018 13:29 documented in this encounter Plan of Treatment Not on filedocumented as of this encounter Visit Diagnoses Not on filedocumented in this encounter Care Teams Pourer Bull Ladle Relationship Specialty Start Date End Date Anna Mullen MD PCP - General 05/18/18 [address] [place], [place] [address] documented as of this encounter
--- OUTSIDE RECORDS SUMMARY | 2022-03-13 18:40 | XMS_ITS | Encounter Summary ---
:1965 Author Organization [facility] Address [address] [place] [address] Care Team Providers Name Role Phone Anna Mullen MD Primary Care Provider Reason for Visit Reason Comments Skin Exam FBSE. Spot on L upper thigh Encounter Details Date Type Department Care Team Description 06/24/2019 Office Visit [facility] Molina Soliz M D History of pancreas transplant ([facility]) (Primary Dx); Dermatology - Main [address] [place] [address] Nevus; [facility] Sun-damaged skin; [address] [place] [address], [place] Vitiligo; [place] [address] Pavilion, Level 5 Dermatitis [phone] [place] [phone] (Wo rk) Social History Tobacco Use Types Packs/Day Years Used Date Never Smoker Smokeless Tobacco: Never Used Alcohol Use Standard Drinks/Week Comments No 0 (1 standard drink = 0.6 oz pure alcoho l) Sex Assigned at Date Recorded Not on file documented as of this encounter Progress Notes Molina Soliz MD - 06/24/2019 0900 EDT Dermatology Outpatient Visit Note Chief Complaint Patient presents with ??? Skin Exam FBSE. Spot on L upper thigh Dermatologic History: 1. History of pancreas transplant- 2013. On prograf and CellCept 2. Actinic keratoses 3. Vitiligo 4. Multiple benign nevi Last Dermatology office visit: 12/21/2018 SUBJECTIVE Mr. Hsu is a 53 y.o. male who presents for follow up for full body skin exam. He is concerned with a lesion located on the left upper thigh. Is been present for a few months. It does not bleed or itch. He has not applied any topical medication [...] place and time. He has Cueva type 1-2 skin. Cutaneous full body examination including the hair, scalp, face, eyelids, lips, neck, chest, back, abdomen, all four extremities, hands, feet, digits and nails was performed.The examination was normal with theaddition of the following comments: On the lateral thighs bilaterally, there are pink ill-defined papules and plaques. The lesions on the left thigh have been overlying violaceous patch consistent with a bruise There are hypopigmented to depigmented patches on the upper back and right arm. There are brown macules on photo distributed areas located on the arms, shoulders, upper back There are scattered 2 to 5 mm brown macules and soft brown papules on the trunk and extremities. ASSESSMENT/PLAN 1. Rash ?? Etiology unclear. Patient's states that they look like hives. They will come and go on theirown. ?? Start betamethasone dipropionate cream to affected areas on the legs twice daily x2 weeks then once daily x2 weeks then every other day as needed. Avoid face, groin, or skin folds. 2. History of pancreas transplant/sun damaged skin ?? The nature of sun-induced photo-aging and skin cancers is discussed. Sun avoidance, protective clothing, and the use of 30-SPF sunscreens is advised. Observe closely for skin damage/changes, and call if such occurs. 3. Nevus ?? No suspicious features on exam. No treatment unless there would be changes. ABCDE's of melanoma discussed as well as the importance of the ugly duckling rule and self skin exams at least monthly or every other month of which the patient showed a good understanding. 4. Vitiligo ?? Patient is aware of the importance of sunscreen over the affected areas. Lesions have not changedsince the last visit. Should lesions expand, can offer treatment He will f/u 6 months for full body skin exam or in the interim should problems arise. Molina Soliz MD 06/24/2019 9:02 Aguilar Marshall - 06/24/2019 0900 EDT Review of Systems Constitutional: Negative for [...] sleep disturbance. The patient is not nervous/anxious. Aguilar Flores 06/24/2019 8:59 documented in this encounter Plan of Treatment Not on filedocumented as of this encounter Visit Diagnoses Diagnosis History of pancreas transplant ([facility]) (HCC) - Primary 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 Nevus Benign neoplasm of skin, site unspecifie d Sun-damaged skin Other dermatitis due to solar radiation Vitiligo Dermatitis Contact dermatitis and other eczema, due to unspecified cause documented in this encounter Care Teams Classifying Machine Operator Relationship Specialty Start Date End Date Anna Mullen MD PCP - General 05/18/[address] [place] [address] documented as of this encounter
--- OUTSIDE RECORDS SUMMARY | 2022-03-13 18:40 | XMS_ITS | Encounter Summary ---
:1965 Author Organization [facility] Address [address] [place] [address] Care Team Providers Name Role Phone Unavailable Primary Care Provider Unavailable Encounter Details Date Type Department Care Team Description 05/30/2003 Results Only [facility] - Zan Marie MD conversion [address] [place] [address] Social History Tobacco Use Types Packs/Day Years Used Date Never Assessed Sex Assigned at Date Recorded Not on file documented as of this encounter Plan of Treatment Not on filedocumented as of this encounter Procedures Procedure Name Priority Date/Time Associated Diagnosis Comme nts CYTOPATHOLOGY Routine 05/30/2003 0:00 EDT Results for this procedure are i n the results section . documented in this encounter Results CYTOPATHOLOGY (05/30/2003 0:00 EDT) Pathology Report: CYTOPATHOLOGY REPORT [facility] Reports generated via electronic interface contain debra ginal data; however they are lacking the format of the original re port. Caution should be taken when reading/interpreting unfo rmatted reports. Name: ? REESE HSU ? Accession #: ? [id number] : ? 1965 (Age: 37) ??M ?Collect Date: ? 05/03 Location: ? [facility] ? Receive Date : ? 06/01/2003 Provider: ? ZAN HANEY MD Copy to: ? CYTOLOGIC DIAGNOSIS: ? Urine, voided, cytologic evaluation: - No malignant cells identified; sparse cellular mater ial. Document reviewed and electronically signed by: ? CHEMA DARNELL MD [facility] Report Date: ??06/02/2003 16:02 By the signature above, the attending physician certif ies that he/she has personally conducted a gross and/or microscopic examin ation of the described specimens and rendered or confirmed the above diagnosi s. Specimen Type: ? Urine, Voided Clinical History: ? Hematuria ? Gross Description: ? 40cc' s of clear, yel low fluid were received and processed by concentration technique. ? End of Report Specimen Performing Organization Address City/State/ZIP Code Phon e Number [facility] [address] [place] [address] SERVICES [facility] [address] [place] [address] documented in this encounter Visit Diagnoses Not on filedocumented in this encounter
--- OUTSIDE RECORDS SUMMARY | 2022-03-13 18:40 | XMS_ITS | Encounter Summary ---
:1965 Author Organization [facility] Address [address] [place] [address] Care Team Providers Name Role Phone Anna Mullen MD Primary Care Provider Encounter Details Date Type Department Care Team Description 03/23/2021 Lab Requisition [facility] Outr Resulting Lab, Pathology & Laboratory Provider [facility] [address] [place], [place] [phone] Social History Tobacco Use Types Packs/Day Years [...] Priority Date/Time Associated Diagnosis Comme nts LYME AB Routine 03/22/2021 8:25 EDT Results for this procedure are i n the results section . documented in this encounter Results LYME AB (03/22/2021 8:25 EDT) Pathologist Sig nature Lyme Ab Negative Negative [facility] Specimen Blood - Venous blood (substance) Performing Organization Address City/State/ZIP Code Phon e Number [facility] [address] [place] [address] SERVICES documented in this encounter Visit Diagnoses Not on filedocumented in this encounter Care Teams Control Clerk Head Relationship Specialty Start Date End Date Anna Mullen MD PCP - General 05/18/18 [address] [place], [place] [address] documented as of this encounter
--- OUTSIDE RECORDS SUMMARY | 2022-03-13 18:40 | XMS_ITS | Encounter Summary ---
:1965 Author Organization [facility] Address [address] [place] [address] Care Team Providers Name Role Phone Anna Mullen MD Primary Care Provider Encounter Details Date Type Department Care Team Description 11/27/2019 Lab Requisition [facility] Unknown, Provider, Pathology & Laboratory [facility] [address] [facility] [place] [address] Social History Tobacco Use Types Packs/Day Years [...] Priority Date/Time Associated Diagnosis Comme nts TACROLIMUS (FK506) Routine 11/26/2019 9:53 EDT Re sults for this procedure are i n the results section. documented in this encounter Results TACROLIMUS (FK506) (11/26/2019 9:53 EDT) Tacrolimus 7.2 See Note [facility] Comment: ng/mL LABORATORY SERVICES NOTE: Therapeutic range is dependent on the clinical situati on. Assayed utilizing Fermin Emily miluminescent technology. ??Values obtained using different assay methods cannot be used interchangeably. Specimen Blood - Venous blood (substance) Performing Organization Address City/State/ZIP Code Phon e Number [facility] [address] [place] [address] SERVICES documented in this encounter Visit Diagnoses Not on filedocumented in this encounter Care Teams Prior Authorization Nurse Relationship Specialty Start Date End Date Anna Mullen MD PCP - General 05/18/[address] [place] [id number] documented as of this encounter
--- OUTSIDE RECORDS SUMMARY | 2022-03-13 18:40 | XMS_ITS | Encounter Summary ---
:[address] [facility] Address [address] [place] [address] Care Team Providers Name Role Phone Anna Mullen MD Primary Care Provider Encounter Details Date Type Department Care Team Description 08/07/2019 Lab Requisition [facility] Unknown, Provider, Pathology & Laboratory [facility] [address] [facility] [place] [address] Social History Tobacco Use Types Packs/Day Years [...] Associated Diagnosis Comme nts TACROLIMUS (FK506) Routine 08/06/2019 6:57 EST Re sults for this procedure are i n the results section. documented in this encounter Results TACROLIMUS (FK506) (08/06/2019 6:57 EST) Tacrolimus 7.8 See Note [facility] Comment: ng/mL LABORATORY SERVICES NOTE: Therapeutic range is dependent on the clinical situati on. Assayed utilizing Fermin Emily miluminescent technology. ??Values obtained using different assay methohds cannot be used interchangeably. Specimen Blood - Venous blood (substance) Performing Organization Address City/State/ZIP Code Phon e Number [facility] [address] [place] [address] SERVICES documented in this encounter Visit Diagnoses Not on filedocumented in this encounter Care Teams Head Custodian Relationship Specialty Start Date End Date Anna Mullen MD PCP - General 05/18/[address] [place] [id number] documented as of this encounter
--- OUTSIDE RECORDS SUMMARY | 2022-03-13 18:40 | XMS_ITS | Encounter Summary ---
:1965 Author Organization [facility] Address [address] [place] [address] Care Team Providers Name Role Phone Anna Mullen MD Primary Care Provider Encounter Details Date Type Department Care Team Description 04/25/2019 Hospital Encounter [facility] Unknown, Provider, [facility] [address] [facility] [phone] [place] [address] (Work) [phone] Social History Tobacco Use Types Packs/Day Years Used Date Never Smoker Smokeless Tobacco: Never Used Alcohol Use Standard Drinks/Week Comments No 0 (1 standard drink = 0.6 oz pure alcoho l) Sex Assigned at Date Recorded Not on file documented as of this encounter Medications at Time of Discharge Medication Sig Dispensed Refills Start Date End Date ALBUTEROL INHL Inhale 2.5 mg as 0 directed 2 times daily. aspirin chewable 81 mg Take 81 mg by mouth 0 tablet daily. gabapentin (NEURONTIN) 300 Take 300 mg by mouth 0 mg capsule 3 times daily. 300 mg in Am, 600 mg with dinner, and 300 at bedtime. 5 tablets a day levothyroxine (SYNTHROID) Take 150 mcg by mouth 0 150 mcg tablet daily. lisinopril (PRINIVIL, Take 60 mg by mouth 2 0 ZESTRIL) 30 mg tablet times daily. MULTI-VITAMIN ORAL Take 2 Tabs by mouth 0 daily. mycophenolate (CELLCEPT) Take 500 mg by mouth 0 250 mg capsule 2 times daily. Pantoprazole (PROTONIX) 40 Take 40 mg by mouth [address] for susp in times daily. packet tacrolimus (PROGRAF) 1 mg Take 2 mg by mouth 2 0 capsule times daily. venlafaxine (EFFEXOR-XR) Take 150 mg by mouth 0 150 mg XR capsule daily. 225mg daily documented as of this encounter Discharge Disposition Disposition Code Departure Means Destination Home or Self [facility] documented in this encounter Plan of Treatment Not on filedocumented as of this encounter Visit Diagnoses Not on filedocumented in this encounter Care Teams Digital Media Manager Relationship Specialty Start Date End Date Anna Mullen MD PCP - General 05/18/[address] [place] [id number] documented as of this encounter
[2022-04-02 10:40] LABS: Fungus Smear No Fungi Seen
== END 2022-03-13 18:22 | disposition home or self-care (01) ==
LOC: NCHCN 18:21
PROVIDERS: PCP Family Medicine; Visit Provider Nurse Practitioner Family
DX: H60.501 Unspecified acute noninfective otitis externa, right ear (principal)
CPT/HCPCS: 87101; 87102; 87206

== ENCOUNTER 2022-03-31 15:27 | Outpatient (REF) | payer BC, SELFPAY ==
[2022-03-31 16:32] LABS: TSH 1.06 uIU/mL (0.36-3.74)
== END 2022-03-31 15:28 | disposition home or self-care (01) ==
LOC: NCHCN 15:27
PROVIDERS: PCP Family Medicine; Visit Provider Family Medicine
DX: E03.9 Hypothyroidism, unspecified (principal)
CPT/HCPCS: 84439; 84443

== ENCOUNTER → 2022-04-04 00:32 | Outpatient (CLI) | payer BC, SELFPAY ==
--- OUTSIDE RECORDS SUMMARY | 2022-04-04 00:41 | XMS_ITS | Encounter Summary ---
:1965 Author Organization [facility] [place] [address] Care Team Providers Name Role Phone Anna Mullen MD Primary Care Provider Reason for Visit Reason Comments Medication Refill Encounter Details Date Type Department Care Team Description 02/03/2022 Refill Solid Organ Transplant at Eriberto Emery MD [facility] [employer] [place] [address] [place] [address] [phone] (Wo rk) Social History Tobacco Use Types [...] on filedocumented in this encounter Care Teams Assembly Line Leader Relationship Specialty Start Date End Date Anna Mullen MD PCP - General 12/03/10 [address] [place], [place] [id number] documented as of this encounter
--- OUTSIDE RECORDS SUMMARY | 2022-04-04 00:41 | XMS_ITS | Clinical Summary ---
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; Vitamin D defic iency 01/28/2022 [facility] MD Bruce Hypothyroidism, unspecified type from Last 3 Months Immunizations Name Administration Dates Next Due Influenza PF, Split 08/17/2019, 05/19/2016, 05/31/2014 Influenza Vaccine W/preservative, 06/11/2019 Quadrivalent Influenza Vaccine w/Preservative, 05/22/2012 Split Influenza Vaccine, Whole 06/11/2009 Moderna Covid-19 (Rn Hyperbaric 100mcg) 09/28/2021, 04/18/2021, , Vaccine 10/31/2020 Pneumococcal [...] history exists Medical Devices Implanted Type Area Geodesist Device Shelf Model / Identifier Expiration Date Ser ial / Lot Organ Acquistion Pancreas Donor Pancreas - [id number] IMPLANTS / Implanted: Qty: 1 on 08/28/2013 by Iraj Keller MD at [facility] / [id number] Procedures Procedure Name Priority Date/Time Associated Diagnosis [...] ransplant Results for this PCR,PLASMA AM EDT senior care current use of pro cedure are in immunosuppressiv e drug the results Vitamin D deficiency section . 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 from Last 3 Months Results Urinalysis with reflex Culture (01/29/2022 8:21 AM EDT) [facility] Method Time Signature Glucose UA Negative Negative [facility] mg/dL [facility] Protein UA Negative Negative [facility] mg/dL [facility] Bilirubin UA Negative Negative [facility] mg/dL [facility] Comment: Clinical correlation required for positi ve Urine Bilirubin results as false positive may occur with some drugs and d rug related products. If a false positive is suspected a serum total bili sinha should be considered if clinically indicated. Urobilinogen UA Normal Normal mg/dL [facility] pH UA 6.5 5.0 - 8.0 [facility] Blood UA Negative Negative mg/dL [facility] Ketones UA Negative Negative mg/dL [facility] Nitrite UA Negative Negative [facility] Leukocytes UA Negative Negative [facility] Appearance UA Clear Clear [facility] Spec Adair UA 1.008 1.005 - 1.030 [facility] Color UA Yellow Yellow [facility] Culture Reflexed No [facility] Specimen Anatomical Collection Method Collection Time Receive d Time (Source) Location / / Volume Laterality Clean Catch 01/29/2022 8:21 AM 2 8:42 Urine EDT AM EDT Resulting Agency Comment Spec In Lab Eriberto Melgar MD URINE ORDERABLES Performing Organization Address City/[facility]/ZIP [place] [address] [facility]ORY Drive BKV Quant Blood (01/29/2022 8:07 AM EDT) Patholo gist Method Time Signature BKV Blood Not Detected Not Detected TIFFANI Result IU/mL [facility] Comment: Indication for Study: Monitoring [...] Melgar MD IMMUNOLOGY ORDERABLES Performing Organization Address City/[facility]/ZIP [place] [address] PSA Screen (01/29/2022 8:07 AM EDT) P athologist Signature PSA Total 0.37 0.00 - 4.00 [facility] ng/mL [facility] Comment: PLEASE NOTE: The [...] Organization Address City/State/[place] [address] (ABNORMAL) Hemogram (01/29/2022 8:07 AM EDT) Analysis Performed At Patho logist Time Signature WBC 5.4 4.0 - 9.5 [facility] x10(3)/[facility] LABORATORY RBC 4.33 (L) 4.58 - [facility] 5.54 [facility] x10(6)/[facility] LABORATORY Hemoglobin 13.4 (L) 13.7 - [facility] 16.5 g/dL [facility] Hematocrit 39.0 (L) 40.5 - [facility] 48.5 % [facility] MCV 90.1 82.9 - [facility] 93.1 [facility] LABORATORY MCH 30.9 27.5 - [facility] [place] 32.1 pg [facility] MCHC 34.4 32.0 - [facility] 35.7 g/dL [facility] Platelets 202 145 - 357 [facility] x10(3)/[facility] LABORATORY RDWSD 39.8 36.0 - [facility] [place] 45.0 [facility] LABORATORY RDWCV 12.1 11.4 - [facility] [place] 13.8 % [facility]ORY MPV 10.6 7.6 - 12.9 [facility] LABORATORY nRBC % Auto 0.0 % [facility] nRBC Abs Auto 0.000 0.000 - [facility] [place] 0.000 [facility] x10(3)/[facility] LABORATORY Specimen Anatomical Collection Method Collection Time Receive d Time (Source) Location / / Volume Laterality Blood 01/29/2022 8:07 AM 2 8:13 EDT AM EDT Resulting Agency Comment Spec In Lab Eriberto Melgar MD HEMATOLOGY ORDERABLES Performing Organization Address City/State/ZIP Code Phon e Number [address] Differential, Automated (01/29/2022 8:07 AM EDT) P athologist Signature Neutrophils % 41.4 % [facility] Neutr Abs (ANC) 2.23 1.70 - [facility] 6.10 [facility] x10(3)/[facility] LABORATORY Lymphocytes % 45.0 % [facility] Lymphocytes Abs 2.4 0.9 - [address].2 [facility] x10(3)/[facility] LABORATORY Monocytes % 9.1 % [facility] Monocyte Abs 0.5 0.3 - [address].9 [facility] x10(3)/[facility] LABORATORY Eosinophils % 3.2 % [facility] Eosinophils Abs 0.2 0.0 - [address].4 [facility] x10(3)/[facility] LABORATORY Basophils % 0.9 % [facility] Basophils Abs 0.0 0.0 - [address]1 [facility] x10(3)/[facility] LABORATORY Immature Gran % 0.40 % [facility] Comment: Immature granulocytes(IG's)percentage an d absolute count will include metamyelocytes, myelocytes, and promyelo cytes. Blood smears from CBCs yielding IG's will be scanned manually for concor dance. If this scan disagrees with the automated IG or if promyelocytes are not ed, a manual differential will be performed. Kym Gran Abs 0.02 0.00 - 0.04 x10(3)/[facility] Specimen Anatomical Collection Method Collection Time Receive d Time (Source) Location / / Volume Laterality Blood 01/29/2022 8:07 AM 8:13 EDT AM EDT Resulting Agency Comment Spec In Lab Eriberto Melgar MD HEMATOLOGY ORDERABLES Performing Organization Address City/State/ZIP Code Phon e Number [address] Tacrolimus level (01/29/2022 8:07 AM EDT) athologist Signature Tacrolimus Lvl 9.4 ng/mL [facility] Comment: Trough therapeutic [...] Melgar MD CHEMISTRY ORDERABLES Performing Organization Address City/[facility]/RUST Code Phon e Number [address] Reticulocyte Count (01/29/2022 8:07 AM EDT) athologist [facility] Retic Ct % 1.4 0.7 - 2.6 [facility] Retic Ct Abs 0.060 0.030 - [facility] 0.120 [facility] x10(6)/[facility] LABORATORY Immature Retic% 4.6 0.0 - 15.6 [facility] Reticulated Hgb 34.7 [address] [facility] 40.2 [facility] LABORATORY Specimen Anatomical Collection Method Collection Time Receive d Time (Source) Location / / Volume Laterality Blood 01/29/2022 8:07 AM 2 8:13 EDT AM EDT Resulting Agency Comment Spec In Lab Eriberto Melgar MD HEMATOLOGY ORDERABLES Performing Organization Address City/[facility] Phon e Number [address] Uric acid (01/29/2022 8:07 AM EDT) athologist Signature Uric Acid 6.3 3.5 - 8.5 [facility] mg/dL [facility] Specimen Anatomical Collection Method Collection Time Receive d Time (Source) Location / / Volume Laterality Blood 01/29/2022 8:07 AM 8:14 EDT AM EDT Resulting Agency Comment Spec In Lab Eriberto Melgar MD CHEMISTRY ORDERABLES Performing Organization Address City/[facility]/ZIP Code Phon e Number [address] (ABNORMAL) TSH (01/29/2022 8:07 AM EDT) P athologist Signature TSH 0.25 (L) 0.27 - 4.20 [facility] mcIU/mL [facility] Comment: Reference Interval (mcIU/mL): Females: ??First Trimester: 0.23-3.88 ??Second Trimester: 0.22-3.90 ??Third Trimester: 0.44-4.66 Specimen Anatomical Collection Method Collection Time Receive d Time (Source) Location / / Volume Laterality Blood Venous Draw / 01/29/2022 8:07 AM 01/30/20 22 8:14 Unknown EDT AM EDT Resulting Agency Comment Spec In Lab Anna Mullen MD CHEMISTRY ORDERABLES Performing Organization Address City/[facility]/[place] [address] (ABNORMAL) T4, free (01/29/2022 8:07 AM EDT) P athologist Signature Free T4 1.78 (H) 0.93 - 1.70 [facility] ng/dL [facility] Comment: Reference Interval (ng/dL): Females: ??First Trimester: 0.97-1.68 ??Second Trimester: 0.77-1.51 ??Third Trimester: 0.77-1.49 Specimen Anatomical Collection Method Collection Time Receive d Time (Source) Location / / Volume Laterality Blood Venous Draw / 01/29/2022 8:07 AM 01/30/20 22 8:17 Unknown EDT AM EDT Resulting Agency Comment Spec In Lab Anna Mullen MD CHEMISTRY ORDERABLES Performing Organization Address City/[facility]/[place] [address] (ABNORMAL) Phosphorus (01/29/2022 8:07 AM EDT) P athologist Signature Phosphorus 2.2 (L) 2.5 - 4.5 [facility] mg/dL [facility] Specimen Anatomical Collection Method Collection Time Receive d Time (Source) Location / / Volume Laterality Blood 01/29/2022 8:07 AM 2 8:14 EDT AM EDT Resulting Agency Comment Spec In Lab Eriberto Melgar MD CHEMISTRY ORDERABLES Performing Organization Address City/[facility]/ZIP Code Phon e Number [address] (ABNORMAL) Magnesium (01/29/2022 8:07 AM EDT) P athologist Signature Magnesium 0.66 (L) 0.69 - 1.07 [facility] mmol/L [facility] Specimen Anatomical Collection Method Collection Time Receive d Time (Source) Location / / Volume Laterality Blood 01/29/2022 8:07 AM 2 8:14 EDT AM EDT Resulting Agency Comment Spec In Lab Eriberto Melgar MD CHEMISTRY ORDERABLES Performing Organization Address City/[facility]/[place] [address] Lipase (01/29/2022 8:07 AM EDT) athologist Signature Lipase 23 0 - 60 [facility] unit/L [facility] Specimen Anatomical Collection Method Collection Time Receive d Time (Source) Location / / Volume Laterality Blood 01/29/2022 8:07 AM 2 8:14 EDT AM EDT Resulting Agency Comment Spec In Lab Eriberto Melgar MD CHEMISTRY ORDERABLES Performing Organization Address City/[facility]/ZIP Code Phon e Number [address] Hemoglobin A1c (01/29/2022 8:07 AM EDT) P athologist Signature Hemoglobin A1C 5.2 4.3 - 5.6 [facility] [...] Mellitus, Diabetes Care 2013; 36: Suppl. 1, S67-47 Est Avg Gluc 103 mg/dL [facility] Comment: eAG equivalents for HbA1c percentages: HbA1c(%) ?eAG(mg/dL) 6.0 ?126 6.5 ?140 7.0 ?154 7.5 ?169 8.0 ?183 8.5 ?197 9.0 ?212 9.5 ?226 10.0 ? 240 Limitations: The eAG calculation has not been validated on women, individuals below 18 years old and above 70 years old, and individuals with hemoglobinopathies. Additional resources are available on [facility] website. Edinson GRISSOM, Nathaniel J, Ari R, et al. ??Tr anslating the A1C assay into estimated average glucose values. ??Diabetes Care 2008:31(8):0478-3378. Specimen Anatomical Collection Method Collection Time Receive d Time (Source) Location / / Volume Laterality Blood 01/29/2022 8:07 AM 8:13 EDT AM EDT Resulting Agency Comment Spec In Lab Anna Mullen MD CHEMISTRY ORDERABLES Performing Organization Address City/State/ZIP Code Phon e Number [place] [phone] LAB[address] Cholesterol, total (01/29/2022 8:07 AM EDT) athologist Signature Chol, Total 114 mg/dL [facility] Comment: Lower Risk: <200 mg/dL Average Risk: 200-239 mg/dL Higher Risk: >nb=138 mg/dL Lipid Interpretation See Note [facility] Comment: Lipid management should be guided by a p atient? s ASCVD risk, goals and preferences. ACC/AHA Guidelines recommend high intens ity statin if clinical ASCVD or LDL greater than or equal to 190 mg/dL. http://Evo.com.benchee/IID-CST-Bdmwsqzir Adults aged 40-75 with LDL 70-189 mg/dL should have their 10 year ASCVD risk estimated with the ACC/AHA ASCVD risk es timator http://tools.acc.org/GRQUD-Guhr-Ysntntak r/ Statin should be discussed if risk [...] Organization Address City/State/ZIP [place] [address] Amylase (01/29/2022 8:07 AM EDT) athologist Signature Amylase 53 28 - 100 [facility] unit/L [facility] Specimen Anatomical Collection Method Collection Time Receive d Time (Source) Location / / Volume Laterality Blood 01/29/2022 8:07 AM 2 8:14 EDT AM EDT Resulting Agency Comment Spec In Lab Eriberto Melgar MD CHEMISTRY ORDERABLES Performing Organization Address City/State/ZIP [place] [address] Lipid Panel (Reflex Direct LDL) (01/29/2022 8:07 AM EDT) athologist Signature Chol, Total 114 mg/dL [facility] Comment: Lower Risk: <200 mg/dL Average Risk: 200-239 mg/dL Higher Risk: >km=332 mg/dL Triglycerides 127 mg/dL [facility] Comment: Average Risk/Lower Risk: <150 mg/dL Borderline High Risk: 150-199 mg/dL High Risk: 200-499 mg/dL Very High Risk: >jy=641 mg/dL HDL 39 mg/dL [facility] Comment: Males: ?? Higher Risk: <40 mg/dL Females: ?? Higher Risk: <50 mg/dL LDL Cholesterol 50 mg/dL [facility] Comment: Lowest Risk: <100 mg/dL Lower Risk: 100-129 mg/dL Borderline High Risk: 130-159 mg/dL High Risk: 160-189 mg/dL Very High Risk: >bx=321 mg/dL Chol/HDL Ratio 2.9 ratio [facility] Lipid Interpretation See Note [facility] Comment: Lipid management should be guided by a p atient? s ASCVD risk, goals and preferences. ACC/AHA Guidelines recommend high intens ity statin if clinical ASCVD or LDL greater than or equal to 190 mg/dL. http://Tistagamesurl.com/USK-MBT-Gttotzfeg Adults aged 40-75 with LDL 70-189 mg/dL should have their 10 year ASCVD risk estimated with the ACC/AHA ASCVD risk es timator http://tools.acc.org/GMCLW-Fxjw-Mabcrxow r/ Statin should be discussed if risk [...] Organization Address City/State/ZIP [place] [address] (ABNORMAL) Comprehensive metabolic panel (non-fasting) (01/29/2022 8:07 AM EDT) athologist Signature Glucose Lvl 102 65 - 199 [facility] mg/dL [facility] Comment: Diabetes: >=200 mg/dL plus symp toms BUN 12 10 - 20 mg/dL [facility] Creatinine 0.85 0.80 - 1.50 mg/dL [facility] Sodium 133 (L) 135 - 145 mmol/L [facility] Potassium 4.3 3.5 - 5.0 mmol/L [facility] Comment: Please note: ??Patients with WBC >100,00 0 may have falsely elevated Potassium levels. ??For accurate Potassium quantif ication in these patients send serum separator tube (gold top) for subsequent determinations. ??Contact the Clinical Chemistry Laboratory if there are any qu estions. Chloride 100 98 - 107 mmol/L [facility] CO2 27 22 - 31 mmol/L [facility] Anion Gap 6 5 - 15 mmol/L [facility] Calcium 9.0 8.5 - 10.5 mg/dL [facility] Total Protein 6.7 6.1 - 8.0 g/dL [facility] Albumin 4.3 3.2 - 5.2 g/dL [facility] AST 23 0 - 39 unit/L [facility] ALT 20 0 - 55 unit/L [facility] Alk Phos 102 40 - 130 unit/L [facility] Total Bilirubin 1.5 (H) 0.2 - 1.3 mg/dL [facility] Estimated GFR 99 >=60 mL/min/1.73 m?? 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 Care Teams Load Builder Relationship Specialty Start Date End Date Anna Mullen MD PCP - General 12/03/10 [address] [place] [address]
--- OUTSIDE RECORDS SUMMARY | 2022-04-04 00:41 | XMS_ITS | Encounter Summary ---
:1965 Author Organization [facility] [place] [address] Care Team Providers Name Role Phone Anna Mullen MD Primary Care Provider Encounter Details Date Type Department Care Team Description 01/29/2022 Laboratory Appointment Lab [address] [place] [address] Social History Tobacco Use Types Packs/Day [...] on filedocumented in this encounter Care Teams Trade Economist Relationship Specialty Start Date End Date Anna Mullen MD PCP - General 12/03/10 [address] [place], [place] [id number] documented as of this encounter
--- OUTSIDE RECORDS SUMMARY | 2022-04-04 00:41 | XMS_ITS | Encounter Summary ---
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; Appointment [facility]; [facility] Hypothyro idism, unspecified type; Drive H/O pancreas transplant; [place], [place] retirement curre nt use of immunosuppressive drug; [id number] Vitamin D deficiency [phone] Social History Tobacco Use Types Packs/Day Years [...] ransplant Results for this PCR,PLASMA AM EDT retirement current use of pro cedure are in [...] nsplant Results for this (TACROLIMUS) AM EDT retirement current use of pro cedure are in [...] with reflex Culture (01/29/2022 8:21 AM EDT) [facility] gist Method Time Signature Glucose UA Negative Negative [facility] mg/dL [facility] Protein UA Negative Negative [facility] mg/dL [facility] Bilirubin UA Negative Negative [facility] mg/dL [facility] Comment: Clinical correlation required for positi ve Urine Bilirubin results as false positive may occur with some drugs and d rug related products. If a false positive is suspected a serum total bili sinha should be considered if clinically indicated. Urobilinogen UA Normal Normal mg/dL [facility] pH UA 6.5 5.0 - 8.0 [facility] Blood UA Negative Negative mg/dL [facility] Ketones UA Negative Negative mg/dL [facility] Nitrite UA Negative Negative [facility] Leukocytes UA Negative Negative [facility] Appearance UA Clear Clear [facility] Spec [place] UA 1.008 1.005 - 1.030 [facility] Color UA Yellow Yellow [facility] Culture Reflexed No [facility] Specimen Anatomical Collection Method Collection Time Receive d Time (Source) Location / / Volume Laterality Clean Catch 01/29/2022 8:21 AM 8:42 Urine EDT AM EDT Resulting Agency Comment Spec In Lab Eriberto Melgar MD URINE ORDERABLES Performing Organization Address City/State/[place] [address] (ABNORMAL) T4, free (01/29/2022 8:07 AM EDT) P athologist Signature Free T4 1.78 (H) 0.93 - 1.70 [facility] ng/dL [facility] Comment: Reference Interval (ng/dL): Females: ??First Trimester: 0.97-1.68 ??Second Trimester: 0.77-1.51 ??Third Trimester: 0.77-1.49 Specimen Anatomical Collection Method Collection Time Receive d Time (Source) Location / / Volume Laterality Blood Venous Draw / 01/29/2022 8:07 AM 01/30/20 8:17 Unknown EDT AM EDT Resulting Agency Comment Spec In Lab Anna Mullen MD CHEMISTRY ORDERABLES Performing Organization Address City/State/[place] [address] Lipid Panel (Reflex Direct LDL) (01/29/2022 8:07 AM EDT) athologist Signature Chol, Total 114 mg/dL [facility] Comment: Lower Risk: <200 mg/dL Average Risk: 200-239 mg/dL Higher Risk: >nx=736 mg/dL Triglycerides 127 mg/dL [facility] Comment: Average Risk/Lower Risk: <150 mg/dL Borderline High Risk: 150-199 mg/dL High Risk: 200-499 mg/dL Very High Risk: >ld=852 mg/dL HDL 39 mg/dL [facility] Comment: Males: ?? Higher Risk: <40 mg/dL Females: ?? Higher Risk: <50 mg/dL LDL Cholesterol 50 mg/dL [facility] Comment: Lowest Risk: <100 mg/dL Lower Risk: 100-129 mg/dL Borderline High Risk: 130-159 mg/dL High Risk: 160-189 mg/dL Very High Risk: >xw=023 mg/dL Chol/HDL Ratio 2.9 ratio [facility] Lipid Interpretation See Note [facility] Comment: Lipid management should be guided by a p atient? s ASCVD risk, goals and preferences. ACC/AHA Guidelines recommend high intens ity statin if clinical ASCVD or LDL greater than or equal to 190 mg/dL. [email or web address] Adults aged 40-75 with LDL 70-189 mg/dL should have their 10 year ASCVD risk estimated with the ACC/AHA ASCVD risk es timator http://tools.acc.org/ZXQWS-Vngf-Eyihwnkn r/ Statin should be discussed if risk [...] Mullen MD CHEMISTRY ORDERABLES Performing Organization Address City/[facility]/[place] [address] PSA Screen (01/29/2022 8:07 AM EDT) athologist Signature PSA Total 0.37 0.00 - 4.00 [facility] ng/mL [facility] Comment: PLEASE NOTE: The above reference [...] Mullen MD CHEMISTRY ORDERABLES Performing Organization Address City/[facility] [place] [address] (ABNORMAL) TSH (01/29/2022 8:07 AM EDT) athologist Signature TSH 0.25 (L) 0.27 - 4.20 [facility] mcIU/mL [facility] Comment: Reference Interval (mcIU/mL): Females: ??First Trimester: 0.23-3.88 ??Second Trimester: 0.22-3.90 ??Third Trimester: 0.44-4.66 Specimen Anatomical Collection Method Collection Time Receive d Time (Source) Location / / Volume Laterality Blood Venous Draw / 01/29/2022 8:07 AM 01/30/20 8:14 Unknown EDT AM EDT Resulting Agency Comment Spec In Lab Anna Mullen MD CHEMISTRY ORDERABLES Performing Organization Address City/State/[place] [address] Differential, Automated (01/29/2022 8:07 AM EDT) P athologist Signature Neutrophils % 41.4 % [facility] Neutr Abs (ANC) 2.23 1.70 - [facility] 6.10 [facility] x10(3)/[facility]ORY Lymphocytes % 45.0 % [facility] Lymphocytes Abs 2.4 0.9 - 3.2 [facility] x10(3)/[facility] LABORATORY Monocytes % 9.1 % [facility] Monocyte Abs 0.5 0.3 - 0.9 [facility] x10(3)/[facility] LABORATORY Eosinophils % 3.2 % [facility] Eosinophils Abs 0.2 0.0 - 0.4 [facility] x10(3)/[facility] LABORATORY Basophils % 0.9 % [facility] Basophils Abs 0.0 0.0 - 0.1 [facility] x10(3)/[facility] LABORATORY Immature Gran % 0.40 [...] Kym Gran Abs 0.02 0.00 - 0.04 x10(3)/[facility] MAR Y [facility] Specimen Anatomical Collection Method Collection Time Receive d Time (Source) Location / / Volume Laterality Blood 01/29/2022 8:07 AM 2 8:13 EDT AM EDT Resulting Agency Comment Spec In Lab Eriberto Melgar MD HEMATOLOGY ORDERABLES Performing Organization Address City/State/[place] [address] (ABNORMAL) Hemogram (01/29/2022 8:07 AM EDT) Analysis Performed At Patho logist Time Signature WBC 5.4 4.0 - 9.5 [facility] x10(3)/[facility] LABORATORY RBC 4.33 (L) 4.58 - [facility] 5.54 [facility] x10(6)/[facility] LABORATORY Hemoglobin 13.4 (L) 13.7 - [facility] 16.5 g/dL [facility] Hematocrit 39.0 (L) 40.5 - [facility] 48.5 % [facility] MCV 90.1 82.9 - [facility] 93.1 [facility] MCH 30.9 27.5 - [facility] 32.1 pg [facility] MCHC 34.4 32.0 - [facility] 35.7 g/dL [facility] Platelets 202 145 - 357 [facility] x10(3)/[facility] LABORATORY RDWSD 39.8 36.0 - [facility] 45.0 [facility] LABORATORY RDWCV 12.1 11.4 - [facility] 13.8 % [facility] MPV 10.6 7.6 - 12.9 [facility] LABORATORY nRBC % Auto 0.0 % [facility] nRBC Abs Auto 0.000 0.000 - [facility] 0.000 [facility] x10(3)/[facility] LABORATORY Specimen Anatomical Collection Method Collection Time Receive d Time (Source) Location / / Volume Laterality Blood 01/29/2022 8:07 AM 2 8:13 EDT AM EDT Resulting Agency Comment Spec In Lab Eriberto Melgar MD HEMATOLOGY ORDERABLES Performing Organization Address City/State/[place] [address] BKV Quant Blood (01/29/2022 8:07 AM EDT) Patholo gist Method Time Signature BKV Blood Not Detected Not Detected [facility] Result IU/mL [facility] Comment: Indication for Study: Monitoring BKV DNA Analysis: The darin BKV test is an in vi tro nucleic acid amplification tests using real-time polymerase chain reactio n (PCR) assay for the quantitative measurement of BK virus (BKV) DNA in hum an EDTA plasma. Sample: EDTA plasma Method: darin BKV test used with the 680 0 platform ([employer]ano[employer]) Linear Range: 21.5 - 1.0 x 10^8 [...] Resulting Agency Comment Spec In Lab Eriberto Melagr MD IMMUNOLOGY ORDERABLES Performing Organization Address City/[facility]/ZIP [place] [address] Tacrolimus level (01/29/2022 8:07 [...] Organization Address City/State/[place] [address] Hemoglobin A1c (01/29/2022 8:07 AM EDT) athologist Signature Hemoglobin A1C 5.2 4.3 - 5.6 [facility] [...] Mellitus, Diabetes Care 2013; 36: Suppl. 1, U27-25 Est Avg Gluc 103 mg/dL [facility] Comment: eAG equivalents for HbA1c percentages: HbA1c(%) ?eAG(mg/dL) 6.0 ?126 6.5 ?140 7.0 ?154 7.5 ?169 8.0 ?183 8.5 ?197 9.0 ?212 9.5 ?226 10.0 ? 240 Limitations: The eAG calculation has not been validated on women, individuals below 18 years old and above 70 years old, and individuals with hemoglobinopathies. Additional resources are available on [facility] ADA website. Edinson GRISSOM, Nathaniel J, Ari R, et al. ??Tr anslating the A1C assay into estimated average glucose values. ??Diabetes Care 2008:31(8):9835-0384. Specimen Anatomical Collection Method Collection Time Receive d Time (Source) Location / / Volume Laterality Blood 01/29/2022 8:07 AM 2 8:13 EDT AM EDT Resulting Agency Comment Spec In Lab Anna Mullen MD CHEMISTRY ORDERABLES Performing Organization Address City/[facility]/[place] [address] Reticulocyte Count (01/29/2022 8:07 AM EDT) athologist Signature Retic Ct % 1.4 0.7 - 2.6 [facility] Retic Ct Abs 0.060 0.030 - [facility] 0.120 [facility] x10(6)/[facility] LABORATORY Immature Retic% 4.6 0.0 - 15.6 [facility] K [facility] Reticulated Hgb 34.7 31.3 - [facility] 40.2 pg [facility] Specimen Anatomical Collection Method Collection Time Receive d Time (Source) Location / / Volume Laterality Blood 01/29/2022 8:07 AM 2 8:13 EDT AM EDT Resulting Agency Comment Spec In Lab Eriberto Melgar MD HEMATOLOGY ORDERABLES Performing Organization Address City/[facility]/[place] [address] (ABNORMAL) Magnesium (01/29/2022 8:07 AM EDT) athologist Signature Magnesium 0.66 (L) 0.69 - 1.07 [facility] mmol/L [facility] Specimen Anatomical Collection Method Collection Time Receive d Time (Source) Location / / Volume Laterality Blood 01/29/2022 8:07 AM 2 8:14 EDT AM EDT Resulting Agency Comment Spec In Lab Eriberto Melgar MD CHEMISTRY ORDERABLES Performing Organization Address City/[facility]/[place] [address] (ABNORMAL) Phosphorus (01/29/2022 8:07 AM EDT) athologist Signature Phosphorus 2.2 (L) 2.5 - 4.5 [facility] mg/dL [facility] Specimen Anatomical Collection Method Collection Time Receive d Time (Source) Location / / Volume Laterality Blood 01/29/2022 8:07 AM 2 8:14 EDT AM EDT Resulting Agency Comment Spec In Lab Eriberto Melgar MD CHEMISTRY ORDERABLES Performing Organization Address City/[facility]/ZIP [facility] [place] [address] Cholesterol, total (01/29/2022 8:07 AM EDT) athologist Signature Chol, Total 114 mg/dL [facility] Comment: Lower Risk: <200 mg/dL Average Risk: 200-239 mg/dL Higher Risk: >nm=961 mg/dL Lipid Interpretation See Note [facility] Comment: Lipid management should be guided by a p atient? s ASCVD risk, goals and preferences. ACC/AHA Guidelines recommend high intens ity statin if clinical ASCVD or LDL greater than or equal to 190 mg/dL. [email or web address]-[email or web address] Adults aged 40-75 with LDL 70-189 mg/dL should have their 10 year ASCVD risk estimated with the ACC/AHA ASCVD risk es timator http://tools.acc.org/ZBTEM-Ajch-Bydglajb r/ Statin should be discussed if risk [...] Organization Address City/State/[place] [address] Uric acid (01/29/2022 8:07 AM EDT) P athologist Signature Uric Acid 6.3 3.5 - 8.5 [place] [place] mg/dL [facility] Specimen Anatomical Collection Method Collection Time Receive d Time (Source) Location / / Volume Laterality Blood 01/29/2022 8:07 AM 2 8:14 EDT AM EDT Resulting Agency Comment Spec In Lab Eriberto Melgar MD CHEMISTRY ORDERABLES Performing Organization Address City/State/ZIP Code Phon e Number [address] Amylase (01/29/2022 8:07 AM EDT) P athologist Signature Amylase 53 28 - 100 [facility] Specimen Anatomical Collection Method Collection Time Receive d Time (Source) Location / / Volume Laterality Blood 01/29/2022 8:07 AM 2 8:14 EDT AM EDT Resulting Agency Comment Spec In Lab Eriberto Melgar MD CHEMISTRY ORDERABLES Performing Organization Address City/State/[place] [address] Lipase (01/29/2022 8:07 AM EDT) P athologist Signature Lipase 23 0 - 60 [facility]ORY Specimen Anatomical Collection Method Collection Time Receive d Time (Source) Location / / Volume Laterality Blood 01/29/2022 8:07 AM 2 8:14 EDT AM EDT Resulting Agency Comment Spec In Lab Eriberto Melgar MD CHEMISTRY ORDERABLES Performing Organization Address City/State/[place] [address] (ABNORMAL) Comprehensive metabolic panel (non-fasting) (01/29/2022 8:07 AM EDT) P athologist Signature Glucose Lvl 102 65 - 199 [place] mg/dL [facility] Comment: Diabetes: >=200 mg/dL plus symp toms BUN 12 10 - 20 mg/dL [facility] Creatinine 0.85 0.80 - 1.50 mg/dL [facility] Sodium 133 (L) 135 - 145 mmol/L [facility] Potassium 4.3 3.5 - 5.0 mmol/L [facility] Comment: Please note: [...] Anion Gap 6 5 - 15 mmol/L [facility] Calcium 9.0 8.5 - 10.5 mg/dL [facility] Total Protein 6.7 6.1 - 8.0 g/dL [facility] Albumin 4.3 3.2 - 5.2 g/dL [facility] AST 23 0 - 39 unit/L [facility] ALT 20 0 - 55 unit/L [facility] Alk Phos 102 40 - 130 [...] Melgar MD CHEMISTRY ORDERABLES Performing Organization Address City/State/[facility] [place] [place] [address] documented in this encounter Visit Diagnoses Diagnosis 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 Immunosuppression Unspecified disorder of immune mechanism Preventative health care Routine general medical examination at a health care facility Hypothyroidism, unspecified type H/O pancreas transplant 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 retirement current use of immunosuppressi ve drug Vitamin D deficiency Unspecified vitamin D deficiency documented in this encounter Care Teams Jewel Hole Finish Opener Relationship Specialty Start Date End Date Anna Mullen MD PCP - General 12/03/10 [address] [place] [address] documented as of this encounter
--- OUTSIDE RECORDS SUMMARY | 2022-04-04 00:41 | XMS_ITS | Encounter Summary ---
:1965 Author Organization [facility] [place] [address] Care Team Providers Name Role Phone Anna Mullen MD Primary Care Provider Encounter Details Date Type Department Care Team Description 01/29/2022 Office Visit Solid Organ [place], Obstructive sle ep apnea syndrome; [place] [facility] Eriberto Stoddard MD Aftercare following organ transplant; [facility]; [facility] DR Julio watson [place], [place] TRANSPLANT [id number] SURGERY [phone] [place], [place] [address] Social History Tobacco Use Types [...] EDT Transplant Medicine Follow Up Richard Hsu [id number] Transplant ID: Date:?? 01/29/2022 Patient: Richard Hsu Transplant Date: 08/28/2013 Organ(s) Pancreas [place] organ diagnosis: Diabetes Mellitus - Type I [...] he met with a sleep specialist at [facility] who had previously diagnosed sleep apnea nd [...] every 5 for non diabetics - NEEDS [place] kidney ultrasound looking for renal cell CA, [...] performed by Anna Rapp MD at [facility] ENDOSCOPY ??? PRO TRANSPLANT ALLOGRAFT PANCREAS ?? 08/28/2013 ?? @PANCREATIC TRANSPLANT performed by Iraj Keller MD at [facility] MAIN OR ??? PRO TRANSPLANT, PREP DONOR PANCREAS ?? 08/28/2013 ?? @PREPARATION CADAVERIC PANCREAS, STANDARD performed by Iraj Keller MD at [facility] MAIN OR ??? PRO UNLISTED PROCEDURE, MUSCULOSKELETAL SYSTEM, GENERAL ?? 10 years ?? carpel tunnel ??? PRO UPPER GI ENDOSCOPY, BIOPSY ?? 12/31/2011 ?? UPPER GASTROINTESTINAL ENDOSCOPY,WITH BIOPSY SINGLE OR MULTIPLE performed by CLAYTON BHAKTA at [facility] ENDOSCOPY ??? PRO UPPER GI ENDOSCOPY, BIOPSY N/A 08/15/2015 ?? EGD WITH BIOPSY performed by Clayton Bhakta MD at [facility] ENDOSCOPY ??? SHOULDER SURGERY ? UPPER GI ENDOSCOPY, EXAM ?? 12/31/2011 ?? UPPER GI ENDOSCOPY performed by CLAYTON BHAKTA at [facility] ENDOSCOPY ? Current Outpatient Medications: ??? mycophenolate [...] Cream, , Disp: , Rfl: ??? HYDROcodone-acetaminophen (Warren) 10-325 mg Tablet, TAKE 1 TABLET BY [...] from 01/29/2022 in Solid Organ Trans[place] [facility] Weight 101.7 kg (224 lb 3.2 oz) [...] Negative mcL Appearance UA Clear Clear Spec [place] UA 1.008 1.005 - 1.030 Color UA [...] immunotherapy documented in this encounter Care Teams General House Worker Relationship Specialty Start Date End Date Anna Mullen MD PCP - General 12/03/10 [address] [place] [address] documented as of this encounter
--- OUTSIDE RECORDS SUMMARY | 2022-04-04 00:41 | XMS_ITS | Encounter Summary ---
:1965 Author Organization [facility] [place] [address] Care Team Providers Name Role Phone Anna Mullen MD Primary Care Provider Encounter Details Date Type Department Care Team Description 01/28/2022 Transcribe Orders Laboratory Anna Mullen [facility]; [facility] MD Bruce Hypothyroidism, unspecified type Drive [address] [place] [address] [phone] Social History Tobacco Use Types Packs/Day Years [...] Signature Hemoglobin A1C 5.2 4.3 - 5.6 [facility] Comment: Reference Range: 4.3 [...] Mellitus, Diabetes Care 2013; 36: Suppl. 1, S67-33 Est Avg Gluc 103 mg/dL [facility] Comment: eAG equivalents for HbA1c percentages: HbA1c(%) ?eAG(mg/dL) 6.0 ?126 6.5 ?140 7.0 ?154 7.5 ?169 8.0 ?183 8.5 ?197 9.0 ?212 9.5 ?226 10.0 ? 240 Limitations: The eAG calculation has not been validated on women, individuals below 18 years old and above 70 years old, and individuals with hemoglobinopathies. Additional resources are available on [facility] ADA website. Edinson GRISSOM, Nathaniel J, Ari R, et al. ??Tr anslating the A1C assay into estimated average glucose values. ??Diabetes Care 2008:31(8):5865-6692. Specimen Anatomical Collection Method Collection Time Receive d Time (Source) Location / / Volume Laterality Blood 01/29/2022 8:07 AM 8:13 EDT AM EDT Resulting Agency Comment Spec In Lab Anna Mullen MD CHEMISTRY ORDERABLES Performing Organization Address City/State/Z[place] [address] documented in this encounter Visit Diagnoses Diagnosis Preventative health care Routine general medical examination at a health care facility Hypothyroidism, unspecified type documented in this encounter Care Teams [employer] Head Inspector And Adjuster Relationship Specialty Start Date End Date Anna Mullen MD PCP - General 12/03/10 [address] [place] [address] documented as of this encounter
--- OUTSIDE RECORDS SUMMARY | 2022-04-04 00:42 | XMS_ITS | Encounter Summary ---
:1965 Author Organization [facility] [place] [address] Care Team Providers Name Role Phone Anna [...] Expiration Date Visits Requ ested Visits Authorized [id number] 1 1 Encounter Details Date Type Department Care Team Description 04/25/2021 Anesthesia Event [place] [facility] [place] Ramirez MD [facility] [place] [address] [facility] Sola Hwang CRNA [facility] [place] [address] [place] [address] Anesthesia Record Procedure Summary Procedure Name [...] RN Ald Eriberto haider, hand), right; RN mcli-how-mpeiao catheter system; 22 gauge; Alexsandra Sawyer RN; [...] Procedure Summary Date: 04/25/21 Room / Location: [facility] 6 / [facility] Anesthesia Start: 1646 Anesthesia Stop: 1705 Procedure: EGD, UPPER GI ENDOSCOPY (N/A Trunk) Diagnosis: (EGD) (MAC) (Within 3 weeks) Surgeons: Felisa Shaw MD Responsible Provider: Evans Ramirez MD Anesthesia Type: MAC ASA Status: 3 All Anesthesia Providers: Anesthesiologist: Evans Ramirez MD NUTS AND BOLTS ASSEMBLER: Dimple Yu CRNA Vitals Value Taken Time BP 147/92 04/25/21 1730 Temp Pulse 74 04/25/21 1710 Resp 16 04/25/21 1710 SpO2 98 % 04/25/21 1730 Pain Level 0 04/25/21 1710 Vitals shown include unvalidated device data. Patient Location: PACU/[facility] Level of Consciousness: Awake and Alert Pain [...] DIAGNOSTIC performed by Anna Rapp MD at [facility] ENDOSCOPY ??? PRO TRANSPLANT ALLOGRAFT PANCREAS 08/28/2013 @PANCREATIC TRANSPLANT performed by Iraj Keller MD at [facility] MAIN OR ??? PRO TRANSPLANT, PREP DONOR PANCREAS 08/28/2013 @PREPARATION CADAVERIC PANCREAS, STANDARD performed by Iraj Keller MD at [facility] MAIN OR ??? PRO UNLISTED PROCEDURE, MUSCULOSKELETAL SYSTEM, GENERAL 10 years carpel tunnel ??? PRO UPPER GI ENDOSCOPY, BIOPSY 12/31/2011 UPPER GASTROINTESTINAL ENDOSCOPY,WITH BIOPSY SINGLE OR MULTIPLE performed by CLAYTON BHAKTA at [facility] END[facility]COPY ??? PRO UPPER GI ENDOSCOPY, BIOPSY N/A 08/15/2015 EGD WITH BIOPSY performed by Clayton Bhakta MD at [facility] ENDOSCOPY ??? SHOULDER SURGERY ??? UPPER GI ENDOSCOPY, EXAM 12/31/2011 UPPER GI ENDOSCOPY performed by CLAYTON BHAKTA at [facility] Social History Tobacco Use ??? [...] risks discussed with patient. Plan discussed with NUTS AND BOLTS ASSEMBLER and attending. Anesthesia Screening documented in this [...] Routine documented in this encounter Care Teams Rat Farmer Relationship Specialty Start Date End Date Anna Mullen MD PCP - General 12/03/10 [address] [place] [address] documented as of this encounter
--- OUTSIDE RECORDS SUMMARY | 2022-04-04 00:42 | XMS_ITS | Encounter Summary ---
:1965 Author Organization [facility] [place] [address] Care Team Providers Name Role Phone Anna Mullen MD Primary Care Provider Reason for Visit Consultation (Routine) - Closed Specialty Diagnoses / Procedures Referred By Contact Refer red To Contact Pulmonology Diagnoses SOB (shortness of breath) PND (paroxysmal nocturnal dyspnea) Eriberto Melgar, [facility] [address] [place] [address] [place] [address] Referral ID Status Reason Start Date Expiration Date Visits V isits Requested Authorized [id number] Closed Consult, 05/13/2021 05/13/2022 1 1 Test & Treat Encounter Details Date Type Department Care Team Description 06/25/2021 TH Visit Pul[place]ology at [facility] Clayton Villagran, Persistent dyspnea following respiratory infection (Primary Dx); (TeleHealth) [facility] Vaccine counseling [facility] [address] Pulmonary [phone] [place], [place] [address] Social History Tobacco Use Types Packs/Day Years [...] from the original note were not included. [facility] Section of Pulmonary and Critical Care Medicine Outpatient Consultation Date of Encounter: 06/25/2021 Referring Provider: Eriberto Melgar MD [facility] [place] [address] PCP: Anna Mullen MD Reason for Evaluation: Dr. Melgar referred Mr. Hsu to the [facility] for a consultation for an [...] from his boss who had recently visited [facility]. Thismarked by shortness of breath coughing prolonged [...] DIAGNOSTIC performed by Anna Rapp MD at [facility] ENDOSCOPY ??? PRO TRANSPLANT ALLOGRAFT PANCREAS 08/28/2013 @PANCREATIC TRANSPLANT performed by Iraj Keller MD at [facility] MAIN OR ??? PRO TRANSPLANT, PREP DONOR PANCREAS 08/28/2013 @PREPARATION CADAVERIC PANCREAS, STANDARD performed by Iraj Keller MD at [facility] MAIN OR ??? PRO UNLISTED PROCEDURE, MUSCULOSKELETAL SYSTEM, GENERAL 10 years carpel tunnel ??? PRO UPPER GI ENDOSCOPY, BIOPSY 12/31/2011 UPPER GASTROINTESTINAL ENDOSCOPY,WITH BIOPSY SINGLE OR MULTIPLE performed by CLAYTON BHAKTA at [facility] ENDOSCOPY ??? PRO UPPER GI ENDOSCOPY, BIOPSY N/A 08/15/2015 EGD WITH BIOPSY performed by Clayton Bhakta MD at [facility] ENDOSCOPY ??? PRO UPPER GI ENDOSCOPY, DIAGNOSTIC N/A 04/25/2021 EGD, UPPER GI ENDOSCOPY performed by Felisa Shaw MD at [facility] ENDOSCOPY ??? SHOULDER SURGERY ??? 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 HYDROcodone-acetaminophen ([place]) 10-325 mg Tablet TAKE 1 TABLET BY [...] lab tests. Clayton Villagran MD, PhD N [facility] PULMONOLOGY AT [facility] [address] Dept: [phone] Loc: [phone] documented in this encounter Plan of Treatment [...] / FVC LLN 67 % COMPAS PFT [id number] Actual 3.55 L/s COMPAS PFT Pre-BD [id number] Pre-BD 104 % COMPAS PFT % of Predicted [id number] 3.41 L/s COMPAS PFT Predicted [id number] Pre-BD 0.12 COMPAS PFT Z-Score MVV Predicted [...] have questions please contact the health child caregiver private home that requested your imaging first. ? Electronically signed by: Iraj Rhodes DO, [facility] ([phone]), at 07/12/2021 9:54 AM Narrative 07/12/2021 9:54 AM EST EXAMINATION: XR [...] have questions please contact the health child caregiver private home that requested your imaging first. Electronically signed by: Iraj Rhodes DO, [facility] ([phone]), at 07/12/2021 9:54 AM Clayton Villagran MD IMG DX ORDERABLES documented in this encounter Visit Diagnoses Diagnosis Persistent dyspnea following respiratory infection - Primary Other dyspnea and respiratory abnormalit y Vaccine counseling SOB (shortness of breath) Shortness of breath Persistent dyspnea following respiratory infection Other dyspnea and respiratory abnormalit y Persistent dyspnea following respiratory infection Other dyspnea and respiratory abnormalit y documented in this encounter Care Teams Revenue Manager Relationship Specialty Start Date End Date Anna Mullen MD PCP - General 12/03/10 [address] [place] [address] documented as of this encounter
--- OUTSIDE RECORDS SUMMARY | 2022-04-04 00:42 | XMS_ITS | Encounter Summary ---
:1965 Author Organization [facility] [place] [address] Care Team Providers Name Role Phone Anna Mullen MD Primary Care Provider Reason for Visit Reason Comments Medication Refill Encounter Details Date Type Department Care Team Description 03/06/2021 Refill Solid Organ Transplant at Eriberto Emery MD [facility] ankit [place] [address] [place] [address] [phone] (Wo rk) Social History Tobacco Use Types [...] on filedocumented in this encounter Care Teams Flight Communications Operator Relationship Specialty Start Date End Date Anna Mullen MD PCP - General 12/03/10 [address] [place], [place] [address] documented as of this encounter
--- OUTSIDE RECORDS SUMMARY | 2022-04-04 00:42 | XMS_ITS | Encounter Summary ---
:1965 Author Organization [place] [address] Care Team Providers Name Role Phone Anna Mullen MD Primary Care Provider Encounter Details Date Type Department Care Team Description 02/25/2021 Orders Only Solid Organ Transplant [place] [address] Social History Tobacco Use Types Packs/Day [...] on filedocumented in this encounter Care Teams System Analyst Relationship Specialty Start Date End Date Anna Mullen MD PCP - General 12/03/10 [address] [place], [place] [address] documented as of this encounter
--- OUTSIDE RECORDS SUMMARY | 2022-04-04 00:42 | XMS_ITS | Encounter Summary ---
:1965 Author Organization [facility] [place] [address] Care Team Providers Name Role Phone Anna Mullen MD Primary Care Provider Reason for Visit Reason Comments Medication Refill Encounter Details Date Type Department Care Team Description 07/09/2021 Refill Solid Organ Transplant Eriberto Melgar H/O pancreas transplant; at [facility] Arlyn Prophylactic immunotherapy [facility] [place] [address] TRANSPLANT SURGERY [phone] [place], [place] [address] (Wo rk) Social History Tobacco [...] immunotherapy documented in this encounter Care Teams Gas Meter Installer Helper Relationship Specialty Start Date End Date Anna Mullen MD PCP - General 12/03/10 [address] [place], [place] [id number] documented as of this encounter
--- OUTSIDE RECORDS SUMMARY | 2022-04-04 00:42 | XMS_ITS | Encounter Summary ---
:1965 Author Organization [facility] [place] [address] Care Team Providers Name Role Phone Anna Mullen MD Primary Care Provider Reason for Visit Reason Comments Medication Refill Encounter Details Date Type Department Care Team Description 08/04/2021 Refill Solid Organ Transplant at Eriberto Emery MD [facility] ankit [place] [address] [place] [address] [phone] (Wo rk) Social History Tobacco Use Types [...] on filedocumented in this encounter Care Teams Tower Helper Relationship Specialty Start Date End Date Anna Mullen MD PCP - General 12/03/10 [address] [place], [place] [address] documented as of this encounter
--- OUTSIDE RECORDS SUMMARY | 2022-04-04 00:42 | XMS_ITS | Encounter Summary ---
:1965 Author Organization [facility] [place] [address] Care Team Providers Name Role Phone Anna Mullen MD Primary Care Provider Reason for Visit Reason Comments Medication Refill Encounter Details Date Type Department Care Team Description 11/30/2021 Refill Solid Organ Transplant Eriberto Melgar H/O pancreas transplant; [place] [facility] Arlyn Prophylactic immunotherapy [facility] [address] TRANSPLANT SURGERY [phone] [place], [place] [address] (Wo rk) Social History Tobacco [...] immunotherapy documented in this encounter Care Teams Atm Manager Relationship Specialty Start Date End Date Anna Mullen MD PCP - General 12/03/10 [address] [place], [place] [id number] documented as of this encounter
--- OUTSIDE RECORDS SUMMARY | 2022-04-04 00:42 | XMS_ITS | Encounter Summary ---
:1965 Author Organization [facility] Address [address] [place] [address] Care Team Providers Name Role Phone Anna Mullen MD Primary Care Provider Reason for Visit Reason Onset Date Comments Medication Refill 10/15/2021 Encounter Details Date Type Department Care Team Description 10/15/2021 Refill Solid Organ Eriberto Melgar H/O pancr eas transplant; [place] [facility] [place] Arlyn rat exterminator current use of immunosuppressi ve drug; [facility] Vit curry D deficiency [place] [address] [place] [address] [phone] Social History Tobacco Use Types Packs/Day Years [...] pancreas tra nsplant As Needed for 25 rat exterminator current use of Occ urrences starting immunosuppressiv e drug 10/15/2021 until Vitamin D deficiency 023, 1 completed Reticulocyte Count Lab Routine H/O pancreas transplant As Needed for 25 rat exterminator current use of Occ urrences starting immunosuppressiv e drug 10/15/2021 until Vitamin D deficiency 023, 1 completed Magnesium Lab Routine H/O pancreas tra nsplant As Needed for 25 rat exterminator current use of Occ urrences starting immunosuppressiv e drug 10/15/2021 until Vitamin D deficiency 023, 1 completed Phosphorus Lab Routine H/O pancreas tra nsplant As Needed for 25 USP current use of Occ urrences starting immunosuppressiv e drug 10/15/2021 until Vitamin D deficiency 023, 1 completed Cholesterol, total Lab Routine H/O pancreas transplant As Needed for 25 USP current use of Occ urrences starting immunosuppressiv e drug 10/15/2021 until Vitamin D deficiency 023, 1 completed Uric acid Lab Routine H/O pancreas tra nsplant As Needed for 25 rat exterminator current use of Occ urrences starting immunosuppressiv e drug 10/15/2021 until Vitamin D deficiency 023, 1 completed Urinalysis with reflex Lab Routine H/O pancr eas transplant As Needed for 25 Culture rat exterminator current use of Occ urrences starting immunosuppressiv e drug 10/15/2021 until Vitamin D deficiency 023, 1 completed Amylase Lab Routine H/O pancreas tra nsplant As Needed for 25 rat exterminator current use of Occ urrences starting immunosuppressiv e drug 10/15/2021 until Vitamin D deficiency 023, 1 completed Lipase Lab Routine H/O pancreas tra nsplant As Needed for 25 rat exterminator current use of Occ urrences starting immunosuppressiv e drug 10/15/2021 until Vitamin D deficiency 023, 1 completed Comprehensive metabolic Lab Routine H/O panc reas transplant As Needed for 25 panel (non-fasting) USP current use of Occurrences starting immunosuppressiv e drug 10/15/2021 until Vitamin D deficiency 023, 1 completed Hemoglobin A1c Lab Routine H/O pancreas tra nsplant Every 3 months for 4 USP current use of Occ urrences starting immunosuppressiv e drug 10/15/2021 until Vitamin D deficiency 023, 1 completed C-peptide Lab Routine H/O pancreas tra nsplant Every 3 months for 4 USP current use of Occ urrences starting immunosuppressiv e drug 10/15/2021 until Vitamin D deficiency 023, 1 completed BKV Quant Blood Lab Routine H/O pancreas tra nsplant Every 4 Weeks for 12 rat exterminator current use of Occ urrences starting immunosuppressiv e drug 10/15/2021 until Vitamin D deficiency 023, 2 completed Tacrolimus level Lab Routine H/O pancreas tr ansplant As Needed for 25 rat exterminator current use of Occ urrences starting immunosuppressiv e drug 10/15/2021 until Vitamin D deficiency 023, 2 completed documented as of this encounter Results Tacrolimus level (01/29/2022 8:07 AM EDT) athologist Signature Tacrolimus Lvl 9.4 ng/mL [facility] Comment: Trough therapeutic range is [...] Organization Address City/State/[place] [address] BKV Quant Blood (01/29/2022 8:07 AM EDT) [facility] Method Time Signature BKV Blood Not Detected Not Detected [facility] Result IU/mL [facility] Comment: Indication for Study: Monitoring BKV DNA Analysis: The darin BKV test is an in vi tro nucleic acid amplification tests using real-time polymerase chain reactio n (PCR) assay for the quantitative measurement of BK virus (BKV) DNA in hum an EDTA plasma. Sample: EDTA plasma Method: darin BKV test used with the Reonomy 0 platform ([employer]) Linear Range: 21.5 - 1.0 x 10^8 [...] Melgar MD IMMUNOLOGY ORDERABLES Performing Organization Address City/[facility]/ZIP Code Phon e Number [address] Tacrolimus level (12/12/2021 9:08 AM EDT) P athologist Signature Tacrolimus Lvl 11.3 ng/mL [facility] Comment: Trough therapeutic range is 3-15 ng/mL, depending upon transplant type, time since transplantation, use of other immu nosuppressive drugs, comorbidities, and test method used. Tacrolimus concentration determined usin g the [employer]ora [employer] Tacrolimus electrochemiluminescence competitive imm unoassay. Results from different samples types and methods are not interchangeable. Specimen Anatomical Collection Method Collection Time Receive d Time (Source) Location / / Volume Laterality Blood 12/12/2021 9:08 AM 2 9:28 EDT AM EDT Resulting Agency Comment Spec In Lab Eriberto Melgar MD CHEMISTRY ORDERABLES Performing Organization Address City/[facility] [place] Phon e Number [address] BKV Quant Blood (12/12/2021 9:08 AM EDT) Patholo gist Method Time Signature BKV Blood Not Detected Not Detected [facility] Result IU/mL [facility] Comment: Indication for Study: Monitoring [...] Melgar MD IMMUNOLOGY ORDERABLES Performing Organization Address City/[facility] [place] Phon e Number [address] C-peptide (12/12/2021 9:08 AM EDT) athologist Signature C-Peptide 2.7 1.1 - 4.4 [facility] ng/mL [facility] Comment: As of December 05, 2020, C-Peptide testing h as moved from the Fermin Plater Supervisor to the Nora Darin. Please note the updated reference intervals. Specimen Anatomical Collection Method Collection Time Receive d Time (Source) Location / / Volume Laterality Blood 12/12/2021 9:08 AM 2 9:28 EDT AM EDT Resulting Agency Comment Spec In Lab Eriberto Melgar MD CHEMISTRY ORDERABLES Performing Organization Address City/[facility] [place] Phon e Number [address] Hemoglobin A1c (12/12/2021 9:08 AM EDT) athologist Signature Hemoglobin A1C 5.1 4.3 - 5.6 [facility] % [facility] Comment: Reference Range: 4.3 - [...] Mellitus, Diabetes Care 2013; 36: Suppl. 1, J48-12 Est Avg Gluc 99 mg/dL [facility] Comment: eAG equivalents for HbA1c percentages: HbA1c(%) ?eAG(mg/dL) 6.0 ?126 6.5 ?140 7.0 ?154 7.5 ?169 8.0 ?183 8.5 ?197 9.0 ?212 9.5 ?226 10.0 ? 240 Limitations: The eAG calculation has not been validated on women, individuals below 18 years old and above 70 years old, and individuals with hemoglobinopathies. Additional resources are available on [facility] ADA website. Edinson GRISSOM, Nathaniel J, Ari R, et al. ??Tr anslating the A1C assay into estimated average glucose values. ??Diabetes Care 2008:31(8):2063-0507. Specimen Anatomical Collection Method Collection Time Receive d Time (Source) Location / / Volume Laterality Blood 12/12/2021 9:08 AM 9:28 EDT AM EDT Resulting Agency Comment Spec In Lab Eriberto Melgar MD CHEMISTRY ORDERABLES Performing Organization Address City/State/[place] [address] Comprehensive metabolic panel (non-fasting) (12/12/2021 9:08 AM EDT) athologist Signature Glucose Lvl 103 65 - 199 [facility] mg/dL [facility] Comment: Diabetes: >=200 mg/dL plus symp toms BUN 12 10 - 20 mg/dL [facility] Creatinine 0.97 0.80 - 1.50 mg/dL [facility] Sodium 137 135 - 145 mmol/L [facility] Potassium 4.2 3.5 - 5.0 mmol/L [facility] Comment: Please note: ??Patients with WBC >100,00 0 may have falsely elevated Potassium levels. ??For accurate Potassium quantif ication in these patients send serum separator tube (gold top) for subsequent determinations. ??Contact the Clinical Chemistry Laboratory if there are any qu estions. Chloride 101 98 - 107 mmol/L [facility] CO2 27 22 - 31 mmol/L [facility] Anion Gap 9 5 - 15 mmol/L [facility] Calcium 9.3 8.5 - 10.5 mg/dL [facility] Total Protein 7.5 6.1 - 8.0 g/dL [facility] Albumin 4.7 3.2 - 5.2 g/dL [facility] AST 22 0 - 39 unit/L [facility] ALT 20 0 - 55 unit/L [facility] Alk Phos 128 40 - 130 unit/L [facility] Total Bilirubin 0.6 0.2 - 1.3 mg/dL [facility] Estimated GFR 88 >=60 mL/min/1.73 m?? [facility] Comment: This patient? s estimated [...] Melgar MD CHEMISTRY ORDERABLES Performing Organization Address City/[facility]/ZIP Code Phon e Number [address] Lipase (12/12/2021 9:08 AM EDT) athologist Signature Lipase 22 0 - 60 [facility]OR[facility]ORY Specimen Anatomical Collection Method Collection Time Receive d Time (Source) Location / / Volume Laterality Blood 12/12/2021 9:08 AM 2 9:28 EDT AM EDT Resulting Agency Comment Spec In Lab Eriberto Melgar MD CHEMISTRY ORDERABLES Performing Organization Address City/[facility]/ZIP Code Phon e Number [address] Amylase (12/12/2021 9:08 AM EDT) athologist Signature Amylase 51 28 - 100 [facility]OR[facility]ORY Specimen Anatomical Collection Method Collection Time Receive d Time (Source) Location / / Volume Laterality Blood 12/12/2021 9:08 AM 2 9:28 EDT AM EDT Resulting Agency Comment Spec In Lab Eriberto Melgar MD CHEMISTRY ORDERABLES Performing Organization Address City/[facility]/ZIP Code Phon e Number [address] Uric acid (12/12/2021 9:08 AM EDT) athologist Signature Uric Acid 6.1 3.5 - 8.5 [facility] mg/dL [facility] Specimen Anatomical Collection Method Collection Time Receive d Time (Source) Location / / Volume Laterality Blood 12/12/2021 9:08 AM 2 9:28 EDT AM EDT Resulting Agency Comment Spec In Lab Eriberto Melgar MD CHEMISTRY ORDERABLES Performing Organization Address City/[facility]/ZIP Code Phon e Number [address] Cholesterol, total (12/12/2021 9:08 AM EDT) athologist Signature Chol, Total 117 mg/dL [facility] Comment: Lower Risk: <200 mg/dL Average Risk: 200-239 mg/dL Higher Risk: >qx=828 mg/dL Lipid Interpretation See Note [facility] Comment: Lipid management should be guided by a p atient? s ASCVD risk, goals and preferences. ACC/AHA Guidelines recommend high intens ity statin if clinical ASCVD or LDL greater than or equal to 190 mg/dL. http://SafeTacMag.com/FWC-NJN-Dibwzqtlw Adults aged 40-75 with LDL 70-189 mg/dL should have their 10 year ASCVD risk estimated with the ACC/AHA ASCVD risk es timator http://tools.acc.org/LUOOT-Lbgn-Gxliihlv r/ Statin should be discussed if risk [...] Organization Address City/State/[place] [address] Phosphorus (12/12/2021 9:08 AM EDT) athologist Signature Phosphorus 3.0 2.5 - 4.5 [facility] mg/dL [facility] Specimen Anatomical Collection Method Collection Time Receive d Time (Source) Location / / Volume Laterality Blood 12/12/2021 9:08 AM 2 9:28 EDT AM EDT Resulting Agency Comment Spec In Lab Eriberto Melgar MD CHEMISTRY ORDERABLES Performing Organization Address City/State/ZIP Code Phon e Number [address] (ABNORMAL) Magnesium (12/12/2021 9:08 AM EDT) athologist Signature Magnesium 0.68 (L) 0.69 - 1.07 [facility] mmol/L [facility] Specimen Anatomical Collection Method Collection Time Receive d Time (Source) Location / / Volume Laterality Blood 12/12/2021 9:08 AM 2 9:28 EDT AM EDT Resulting Agency Comment Spec In Lab Eriberto Melgar MD CHEMISTRY ORDERABLES Performing Organization Address City/[facility]/ZIP Code Phon e Number [address] Reticulocyte Count (12/12/2021 9:08 AM EDT) athologist Signature Retic Ct % 1.5 0.7 - 2.6 [facility] LABORATORY Retic Ct Abs 0.070 0.030 - [facility] 0.120 [facility] x10(6)/[facility] LABORATORY Immature Retic% 9.8 0.0 - 15.6 [facility] K [facility] Reticulated Hgb 36.0 31.3 - [facility] 40.2 pg [facility] Specimen Anatomical Collection Method Collection Time Receive d Time (Source) Location / / Volume Laterality Blood 12/12/2021 9:08 AM 2 9:28 EDT AM EDT Resulting Agency Comment Spec In Lab Eriberto Melgar MD HEMATOLOGY ORDERABLES Performing Organization Address City/[facility]/ZIP Code Phon e Number [address] Urinalysis with reflex Culture (12/12/2021 9:03 AM EDT) [facility] Time Signature Glucose UA Negative Negative [facility] mg/dL [facility] Protein UA Negative Negative [facility] mg/dL [facility] Bilirubin UA Negative Negative [facility] mg/dL [facility] Comment: Clinical correlation required for positi ve Urine Bilirubin results as false positive may occur with some drugs and d rug related products. If a false positive is suspected a serum total bili sinha should be considered if clinically indicated. Urobilinogen UA Normal Normal mg/dL [facility] pH UA 7.0 5.0 - 8.0 [facility] Blood UA Negative Negative mg/dL [facility] Ketones UA Negative Negative mg/dL [facility] Nitrite UA Negative Negative [facility] Leukocytes UA Negative Negative [facility]ORY Appearance UA Clear Clear [facility] Spec [place] UA 1.008 1.005 - 1.030 [facility] Color UA Yellow Yellow [facility] Culture Reflexed No [facility] Specimen Anatomical Collection Method Collection Time Receive d Time (Source) Location / / Volume Laterality Clean Catch 12/12/2021 9:03 AM 9:36 Urine EDT AM EDT Resulting Agency Comment Spec In Lab Eriberto Melgar MD URINE ORDERABLES Performing Organization Address City/State/[place] [address] documented in this encounter Visit Diagnoses Diagnosis H/O pancreas transplant 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 rat exterminator current use of immunosuppressi ve drug Vitamin D deficiency Unspecified vitamin D deficiency documented in this encounter Care Teams Frit Burner Relationship Specialty Start Date End Date Anna Mullen MD PCP - General 12/03/10 [address] [place] [address] documented as of this encounter
--- OUTSIDE RECORDS SUMMARY | 2022-04-04 00:42 | XMS_ITS | Encounter Summary ---
:1965 Author Organization [facility] [place] [address] Care Team Providers Name Role Phone Anna Mullen MD Primary Care Provider Reason for Visit Reason Comments Medication Refill Encounter Details Date Type Department Care Team Description 04/12/2021 Refill Solid Organ Transplant at Eriberto Emery MD [facility] ankit [place] [address] [place] [address] [phone] (Wo rk) Social History Tobacco Use Types [...] on filedocumented in this encounter Care Teams Automotive Customer Experience Advisor Relationship Specialty Start Date End Date Anna Mullen MD PCP - General 12/03/10 [address] [place], [place] [address] documented as of this encounter
--- OUTSIDE RECORDS SUMMARY | 2022-04-04 00:42 | XMS_ITS | Encounter Summary ---
:1965 Author Organization [facility] [place] [address] Care Team Providers Name Role Phone Anna Mullen MD Primary Care Provider Encounter Details Date Type Department Care Team Description 05/14/2021 Telephone Pulmonology at [facility] [place] [address] Social History Tobacco Use Types Packs/Day [...] on filedocumented in this encounter Care Teams Jewel Hole Driller Relationship Specialty Start Date End Date Anna Mullen MD PCP - General 12/03/10 [address] [place] [address] documented as of this encounter
--- OUTSIDE RECORDS SUMMARY | 2022-04-04 00:42 | XMS_ITS | Encounter Summary ---
:1965 Author Organization [facility] [place] [address] Care Team Providers Name Role Phone Anna Mullen MD Primary Care Provider Encounter Details Date Type Department Care Team Description 07/12/2021 Hospital Encounter Pulmonology at [facility] SOB (shortness of breath); [facility] Persisten t dyspnea [place] [address] Social History Tobacco Use Types Packs/Day [...] TAKE 1 TABLET BY 0 07/18 n ([place]) 10-325 mg MOUTH TWICE DAILY Tablet NEEDED [...] / FVC LLN 67 % COMPAS PFT GRU93-56 Actual 3.55 L/s COMPAS PFT Pre-BD PRR37-78 Pre-BD 104 % COMPAS PFT % of Predicted NKI53-21 3.41 L/s COMPAS PFT Predicted PDK65-43 Pre-BD 0.12 COMPAS PFT Z-Score MVV Predicted [...] y documented in this encounter Care Teams Deputy Sheriff Relationship Specialty Start Date End Date Anna Mullen MD PCP - General 12/03/10 [address] [place] [address] documented as of this encounter
--- OUTSIDE RECORDS SUMMARY | 2022-04-04 00:42 | XMS_ITS | Encounter Summary ---
:1965 Author Organization [facility] [address] Care Team Providers Name Role Phone Anna Mullen MD Primary Care Provider Encounter Details Date Type Department Care Team Description 10/31/2021 Telephone Solid Organ Transplant [place] [address] Social History Tobacco Use Types Packs/Day [...] on filedocumented in this encounter Care Teams Stockroom Selector Relationship Specialty Start Date End Date Anna Mullen MD PCP - General 12/03/10 [address] [place] [address] documented as of this encounter
--- OUTSIDE RECORDS SUMMARY | 2022-04-04 00:42 | XMS_ITS | Encounter Summary ---
:1965 Author Organization [facility] Address [facility] [place] [address] Care Team Providers Name Role Phone Anna Mullen MD Primary Care Provider Encounter Details Date Type Department Care Team Description 07/04/2021 Orders Only Pulmonology at [facility] Mauricio Villagran MD SOB ([facility] [place] [address] Pulmonary Medicine [phone] [place] [id number] Social History Tobacco Use Types Packs/Day Years [...] breath documented in this encounter Care Teams Hand Buffer Relationship Specialty Start Date End Date Anna Mullen MD PCP - General 12/03/10 [address] [place] [address] documented as of this encounter
--- OUTSIDE RECORDS SUMMARY | 2022-04-04 00:42 | XMS_ITS | Encounter Summary ---
:1965 Author Organization [facility] [place] [address] Care Team Providers Name Role Phone Anna Mullen MD Primary Care Provider Encounter Details Date Type Department Care Team Description 06/13/2021 Tech Visit Vascular Lab at [facility] [place] [address] Social History Tobacco Use Types Packs/Day [...] Component Value Ref Test Analysis Performed At [facility] Range Method Time Signature VB Text Department: Vascular Surgery Lab VASCUBASE Report Patient: [id number] ([facility]) CPT: 86385 ICD10: I63.9 Referring Physician: NIKUNJ BARAHONA ?? [...] stroke documented in this encounter Care Teams Macerator Operator Relationship Specialty Start Date End Date Anna Mullen MD PCP - General 12/03/10 [address] [place] [address] documented as of this encounter
--- OUTSIDE RECORDS SUMMARY | 2022-04-04 00:42 | XMS_ITS | Encounter Summary ---
:1965 Author Organization [facility] [place] [address] Care Team Providers Name Role Phone Anna Mullen MD Primary Care Provider Reason for Visit Reason Comments Medication Refill Encounter Details Date Type Department Care Team Description 05/16/2021 Refill Solid Organ Transplant at Eriberto Emery MD [facility] ankit [place] [address] [place] [address] [phone] (Wo rk) Social History Tobacco Use Types [...] on filedocumented in this encounter Care Teams Bellperson Relationship Specialty Start Date End Date Anna Mullen MD PCP - General 12/03/10 [address] [place], [place] [address] documented as of this encounter
--- OUTSIDE RECORDS SUMMARY | 2022-04-04 00:42 | XMS_ITS | Encounter Summary ---
:1965 Author Organization [facility] [place] [address] Care Team Providers Name Role Phone Anna [...] Expiration Date Visits Requ ested Visits Authorized [id number] 1 1 Encounter Details Date Type Department Care Team Description 04/25/2021 Hospital Encounter [place]ology [place] [facility] Felisa Shaw MD [facility] [place] [address] C[address] [phone] GASTROENTEROLOGY [place], [place] [address] Social History Tobacco Use Types [...] the day after the procedure, use an dhjj-[id number] spray to numb yourthroat. Sucking on throat [...] occurs, please contact your Doctor. Please call [phone] before 8pm Mon-Fri with problems, questions or concerns. If you call after 8pm or on weekends, call the Hospital at [phone] and ask to speak to the Knitting Machine Fixer Head radon inspector and the concrete crusher loader operator will contact that person for you. When should you call for help? Call [phone] anytime you think you may need emergency [...] any problems. Where can you learn more? [facility] View your After Visit Summary and more online at [email or web address] If you would like to [...] cost to you. Content Version: 12.2 ?? [id number] [employer]. Care instructions adapted under license by [facility]. If you have questions about a medical condition or this instruction, always ask your healthcare professional. [employer] disclaims any warranty or liability for your use of this information. documented in this encounter Medications at Time of Discharge Medication Sig Dispensed Refills Start Date End Date betamethasone 0 07/19/2020 dipropionate (DIPROLENE) 0.05 % Cream HYDROcodone-acetaminophe TAKE 1 TABLET BY 0 07/18 n ([place]) 10-325 mg MOUTH TWICE DAILY Tablet NEEDED [...] UPPER GI ENDOSCOPY (04/25/2021 4:39 PM EDT) [facility] Method Time Signature UPPER GI [facility] PROVATION ENDOSCOPY Endoscopy Procedure Date: 04/25/2021 4:39 PM ? Patient Name: Richard Hsu ? Date of : 1965 ? Age: 55 ? Order #: [id number] ? Instrument Name: [id number] ? Procedure: ? Upper GI endoscopy Indications: ? Oropharyngeal phase dysphagia Providers: ? Felisa Shaw MD, Meryl welch, ? Conor Ahumada, Novelty Candy Maker Referring MD: ?Anna Mullen MD Medicines: ? [...] reactions. The ? End[facility] the ? mouth, and advanced [...] Procedure) documented in this encounter Care Teams Conduit Mechanic Relationship Specialty Start Date End Date Anna Mullen MD PCP - General 12/03/10 [address] [place] [address] documented as of this encounter
--- OUTSIDE RECORDS SUMMARY | 2022-04-04 00:42 | XMS_ITS | Encounter Summary ---
:1965 Author Organization [facility] [place] [address] Care Team Providers Name Role Phone Anna Mullen MD Primary Care Provider Reason for Visit Reason Comments Medication Refill Encounter Details Date Type Department Care Team Description 05/08/2021 Refill Solid Organ Transplant at Eriberto Emery MD [facility] ankit [place] [address] [place] [address] [phone] (Wo rk) Social History Tobacco Use Types [...] on filedocumented in this encounter Care Teams Meeting Facilitator Relationship Specialty Start Date End Date Anna Mullen MD PCP - General 12/03/10 [address] [place], [place] [address] documented as of this encounter
--- OUTSIDE RECORDS SUMMARY | 2022-04-04 00:42 | XMS_ITS | Encounter Summary ---
:1965 Author Organization [facility] [place] [address] Care Team Providers Name Role Phone Anna Mullen MD Primary Care Provider Encounter Details Date Type Department Care Team Description 03/26/2021 Telephone Gastroenterology at [facility] [place] [place] [address] Social History Tobacco Use Types Packs/Day [...] - 03/26/2021 11:49 AM EDT Richard Hsu [id number] Diagnosis/Indication: EGD MAC Within 3 weeks 1. [...] to patient: You must have a responsible green party who will drive you to your [...] on filedocumented in this encounter Care Teams 911 Telecommunicator Relationship Specialty Start Date End Date Anna Mullen MD PCP - General 12/03/10 [address] [place] [address] documented as of this encounter
--- OUTSIDE RECORDS SUMMARY | 2022-04-04 00:42 | XMS_ITS | Encounter Summary ---
:1965 Author Organization [facility] [place] [address] Care Team Providers Name Role Phone Anna [...] Expiration Date Visits Requ ested Visits Authorized [id number] 1 1 Encounter Details Date Type Department Care Team Description 04/25/2021 Surgery G[place]ology [place] [facility] Felisa Shaw MD EGD, UPPER GI [facility] D rive [facility] [place] [address] GASTROENTEROLOGY [place], [place] [address] Social History Tobacco Use Types [...] the day after the procedure, use an fetp-ctf-jozqkzb spray to numb yourthroat. Sucking on throat [...] occurs, please contact your Doctor. Please call [phone] before 8pm Mon-Fri with problems, questions or concerns. If you call after 8pm or on weekends, call the Hospital at [phone] and ask to speak to the Manager Market Development guide excursion and the crystallizer operator will contact that person for you. When should you call for help? Call [phone] anytime you think you may need emergency [...] After Visit Summary and more online at [email or web address] If you would like to provide feedback [...] cost to you. Content Version: 12.2 ?? [id number] [employer]zeal. Care instructions adapted under license by [facility]. If you have questions about a medical condition or this instruction, always ask your healthcare professional. [employer] disclaims any warranty or liability for your use of this information. documented in this encounter Medications at Time of Discharge Medication Sig Dispensed Refills Start Date End Date betamethasone 0 07/19/2020 dipropionate (DIPROLENE) 0.05 % Cream HYDROcodone-acetaminophe TAKE 1 TABLET BY 0 07/18 n ([place]) 10-325 mg MOUTH TWICE DAILY Tablet NEEDED [...] UPPER GI ENDOSCOPY (04/25/2021 4:39 PM EDT) [facility] Method Time Signature UPPER GI [facility] ENDOSCOPY Endoscopy Procedure Date: 04/25/2021 4:39 PM ? Patient Name: Richard Hsu ? N: [id number] ? Date of : 1965 ? Age: 55 ? Order #: [id number] ? Instrument Name: [id number] ? Procedure: ? Upper GI endoscopy Indications: ? Oropharyngeal phase dysphagia Providers: ? Felisa Shaw MD, Meryl welch, ? Conor Ahumada, Residential Electrician Referring MD: ?Anna Mullen MD Medicines: ? [...] reactions. The ? Endoscope was introduced thro [facility] the ? mouth, and advanced to [...] Procedure) documented in this encounter Care Teams Mortgage Loan Specialist Relationship Specialty Start Date End Date Anna Mullen MD PCP - General 12/03/10 [address] [place] [address] documented as of this encounter
--- OUTSIDE RECORDS SUMMARY | 2022-04-04 00:42 | XMS_ITS | Encounter Summary ---
:1965 Author Organization [facility] [place] [address] Care Team Providers Name Role Phone Anna Mullen MD Primary Care Provider Encounter Details Date Type Department Care Team Description 07/12/2021 Hospital Encounter XRay at [facility] Mauricio Villagran, Persistent dyspnea [address] [facility] Medical respiratory [address] Center infection [phone] [place] [address] Social History Tobacco Use Types Packs/Day Years [...] TAKE 1 TABLET BY 0 07/18 n ([place]) 10-325 mg MOUTH TWICE DAILY Tablet NEEDED [...] who have questions please contact the health resident care manager rn that requested your imaging first. ? Electronically signed by: Iraj Rhodes DO [facility] ([phone]), at 07/12/2021 9:54 AM Narrative 07/12/2021 9:54 [...] ho have questions please contact the health resident care manager rn that requested your imaging first. Mauricio Villagran MD IMG DX ORDERABLES documented in this encounter Visit Diagnoses Diagnosis Persistent dyspnea following respiratory infection Other dyspnea and respiratory abnormalit y documented in this encounter Care Teams Departmental Buyer Relationship Specialty Start Date End Date Anna Mullen MD PCP - General 12/03/10 [address] [place] [address] documented as of this encounter
--- OUTSIDE RECORDS SUMMARY | 2022-04-04 00:42 | XMS_ITS | Encounter Summary ---
:1965 Author Organization [facility] [address] Care Team Providers Name Role Phone Anna Mullen MD Primary Care Provider Reason for Referral Diagnostic Test (Routine) - New Request Specialty Diagnoses / Procedures Referred By Contact Refer red To Contact Diagnoses Ischemic stroke Ni Child APRN [facility] Vascular Lab 3v Procedures Carotid Duplex, Bilateral [facility] [place] [address] [place] [address] Referral ID Status Reason Start Date Expiration Visits Visits Date Requested Authorized [id number] New Request Test Only 05/31/2021 05/31/2022 1 1 Diagnostic Test (Routine) - Closed Specialty Diagnoses / Procedures Referred By Contact Refer red To Contact Radiology Diagnoses Ischemic stroke Ni Child APRN [facility] Rad Mri Procedures MRI Angiogram Head wo Contrast (Generic) [facility] Dr [facility] [place] [address] [place] [address] Referral ID Status Reason Start Date Expiration Date Visits V isits Requested Authorized [id number] Closed Specialty 05/31/2021 11/29/2022 1 1 Service Requested Diagnostic Test (Routine) - Closed Specialty Diagnoses / Procedures Referred By Contact Refer red To Contact Radiology Diagnoses Ischemic stroke Ni Child, NEWS AGENT [facility] Rad Mri Procedures MRI Brain wo Contrast [facility] [place] [address] [place] [address] Referral ID Status Reason Start Date Expiration Date Visits V isits Requested Authorized [id number] Closed Specialty 07/02/2021 08/30/2021 1 1 Service Requested Reason for Visit Consultation (Urgent) - Closed Specialty Diagnoses / Procedures Referred By Contact Refer red To Contact Neurology Diagnoses Dysphagia, unspecified type TIA (transient ischemic attack) Ischemic stroke Eriberto Melgar MD [facility] Neurology 3c [facility] D R [facility] [place] [address] [place] [address] Referral ID Status Reason Start Date Expiration Date Visits V isits Requested Authorized [id number] Closed Consult, 05/13/2021 05/13/2022 1 1 Test & Treat Encounter Details Date Type Department Care Team Description 05/30/2021 Office Visit Neurology at [facility] iN Child, Ischemic stroke; [facility] NEWS [place]ENT [place] [address] Neurology Dept [place], [place] [address] (Wo rk) Social History Tobacco [...] to call . Follow-up care is a ud part of your treatment and safety. Be sure to make and go to all appointments, and call your doctor if you are having problems. It's also a good idea to know your test results and keep a list of the medicines you take. Where can you learn more? Visit our health information library at [email or web address] You can also view health information on Simparel, your personal patient account. Log in or sign up today. Enter I827 in the search box to learn more about Learning About How to Prevent Another Stroke. Current as of: July 04, 2020?Content Version: 12.9 ?? [employer]. Care instructions adapted under license by [facility]. If you have questions about a medical condition or this instruction, always ask your healthcare professional. [employer] disclaims any warranty or liability for your use of this information. documented in this encounter Progress Notes Ni Almanzar APRN - 05/30/2021 9:00 AM EDT Cerebrovascular Disease and Stroke Program [place] [address] t: [phone] / f: [phone] PCP: MD Reese Gonzalez (prefers Brant) is [...] have worsened. Following our last clinic visit, CATTLE KILLER care was coordinated at [facility] per patient request. Brant denied need for PT/OT interventions. He initiated CATTLE KILLER care but has since discontinued this, states it stopped mainly because of the COVIDpandemic. Saw Deyanira Reagan, CATTLE KILLER at [facility], [place], [place]. Last visit approximately one year ago. Brant also reports having a Modified Barium Swallow and EGD since our last clinic visit. EGD was performed at [facility]. MBS was performed through [facility]. Brant has chronic gastroparesis but denies new concerns today. Brant reports labile blood pressures. Has an automated BP cuff. Notes that readings are normotensive when not working. 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 HYDROcodone-acetaminophen ([place]) 10-325 mg Tablet TAKE 1 TABLET BY [...] 1 HOUR PRIOR TO DENTAL APPOINTMENT ??? GlassUp Blue Test Strip Strip TEST BLOOD SUGAR [...] perform heel-toe assessment due to instability Modified Fannin Scale (MRS) - 0: No symptoms at [...] treated with pancreas transplant UPPER GI ENDOSCOPY [facility] Endoscopy Procedure Date: 04/25/2021 4:39 PM ? Patient Name: Reese Shukla ? Date of : 1965 ? Age: 55 ? Order #: [id number] ? Instrument Name: [id number] ? Procedure: ? Upper GI endoscopy Indications: ? Oropharyngeal phase dysphagia Providers: ? Felisa Shaw MD, Meryl Washburn, ?Conor Ahumada, Core Setter Referring MD: ?Anna Mullen MD Medicines: ? [...] signed electronically. Number of Addenda: 0 (05/02/2021) [facility] Office Visit (available in Media tab as [...] I will also request records from his CATTLE KILLER provider, to include MBS findings if obtainable. [...] forsedation. - Per EGD recommendations, continue with CATTLE KILLER interventions -- Patient deferred today, with future consideration pending further workup -- I have asked that our team legal secretary receptionist reach out to Brant's CATTLE KILLER provider at [facility] to obtain records, including MBS results - Neurology appreciates PCP assistance with future PT/OT/CATTLE KILLER referrals if patient is amenable - Follow [...] detailed above. Ni Almanzar APRN Personal Pager #[phone] Department of Neurology [place] [phone] documented in this encounter Plan of Treatment [...] who have questions please contact the health long term acute care registered nurse that requested your imaging first. ? Narrative 07/04/2021 11:25 AM EDT EXAMINATION: MRI BRAIN WO CONTRAST, MRI ANGIOGRAM HEAD WO CONTRAST (GENERIC) CLINICAL HISTORY: Stroke, follow up Patient with worsening globus sensation, worsening left-sided weakness, ptosis. please assess for recurrent stroke. (acc ession [id number]), Patient with worsening globus sensation, worsening left-sided w eakness, ptosis. 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 Please assess for new stroke/vascular abnormalities. ( accession [id number]) TECHNIQUE: MRA of the head, and MRI of the brain, p erformed without contrast. 3-D MIP reconstructions were created. COMPARISON: Brain MRI dated 08/06/2019. FINDINGS: Brain MRI: The T2 and mvqv-bg-uhbdud images are laura ewhat limited by motion [...] please assess for recurrent stroke. (acc ession [id number]), Patient with worsening globus sensation, worsening left-sided w eakness, ptosis. 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 Please assess for new stroke/vascular abnormalities. ( accession [id number]) TECHNIQUE: MRA of the head, and MRI of the brain, p erformed without contrast. 3-D MIP reconstructions were created. COMPARISON: Brain MRI dated 08/06/2019. FINDINGS: Brain MRI: The T2 and lahg-fw-zmvtxv images are laura ewhat limited by motion [...] ho have questions please contact the health long term acute care registered nurse that requested your imaging first. Ni Child APRN IMG MRI ORDERABLES MRI [...] who have questions please contact the health long term acute care registered nurse that requested your imaging first. ? Narrative 07/04/2021 11:25 AM EDT EXAMINATION: MRI BRAIN WO CONTRAST, MRI ANGIOGRAM HEAD WO CONTRAST (GENERIC) CLINICAL HISTORY: Stroke, follow up Patient with worsening globus sensation, worsening left-sided weakness, ptosis. please assess for recurrent stroke. (acc ession [id number]), Patient with worsening globus sensation, worsening left-sided w eakness, ptosis. 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 Please assess for new stroke/vascular abnormalities. ( accession [id number]) TECHNIQUE: MRA of the head, and MRI of the brain, p erformed without contrast. 3-D MIP reconstructions were created. COMPARISON: Brain MRI dated 08/06/2019. FINDINGS: Brain MRI: The T2 and tnbt-un-imwvum images are laura ewhat limited by motion [...] please assess for recurrent stroke. (acc ession [id number]), Patient with worsening globus sensation, worsening left-sided w eakness, ptosis. 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 Please assess for new stroke/vascular abnormalities. ( accession [id number]) TECHNIQUE: MRA of the head, and MRI of the brain, p erformed without contrast. 3-D MIP reconstructions were created. COMPARISON: Brain MRI dated 08/06/2019. FINDINGS: Brain MRI: The T2 and bfso-vz-jvqcla images are laura ewhat limited by motion [...] ho have questions please contact the health long term acute care registered nurse that requested your imaging first. Ni Child APRN IMG MRI ORDERABLES Carotid Duplex, Bilateral (06/13/2021 2:18 PM EDT) Component Value Ref Test Analysis Performed At [facility] Range Method Time Signature VB Text Department: Vascular Surgery Lab VASCUBASE Report Patient: [id number] (REESE SHUKLA) CPT: 25457 ICD10: I63.9 Referring Physician: NI ALMANZAR ?? [...] Laterality 06/13/2021 2:18 PM EDT Ni Child NEWS AGENT VASCULAR ORDERABLES Performing Organization Address City/State/ZIP Code Phon e Number VASCUBASE documented in this encounter Visit Diagnoses Diagnosis Ischemic stroke Globus sensation Gastrointestinal malfunction arising fro m mental factors Ischemic stroke documented in this encounter Care Teams Director Blood Bank Relationship Specialty Start Date End Date Anna Mullen MD PCP - General 12/03/10 [address] [place] [address] documented as of this encounter
--- OUTSIDE RECORDS SUMMARY | 2022-04-04 00:42 | XMS_ITS | Encounter Summary ---
:1965 Author Organization [facility] [place] [address] Care Team Providers Name Role Phone Anna Mullen MD Primary Care Provider Reason for Referral Consultation (Urgent) - Closed Specialty Diagnoses / Procedures Referred By Contact Refer red To Contact Neurology Diagnoses Dysphagia, unspecified type TIA (transient ischemic attack) Ischemic stroke Eriberto Melgar MD [facility] Neurology 3c [facility] [place] [address] [place] [address] Referral ID Status Reason Start Date Expiration Date Visits V isits Requested Authorized [id number] Closed Consult, 05/13/2021 05/13/2022 1 1 Test & Treat Consultation (Routine) - Closed Specialty Diagnoses / Procedures Referred By Contact Refer red To Contact Pulmonology Diagnoses SOB (shortness of breath) PND (paroxysmal nocturnal dyspnea) Eriberto Melgar [facility] Pulmonology 5c [place] [address] [place] [address] Referral ID Status Reason Start Date Expiration Date Visits V isits Requested Authorized [id number] Closed Consult, 05/13/2021 05/13/2022 1 1 Test & Treat Encounter Details Date Type Department Care Team Description 05/13/2021 Office Visit Solid Organ FLORENCIO Melgar (shortness of breath); Transplant at [facility] Eriberto Stoddard MD PND (paroxysmal nocturnal dyspnea); [facility] Dysphagia , unspecified type; [facility] DR HENSON (transient ischemic attack); [place], [place] TRANSPLANT Ischemic stroke ; [address] SURGERY H/O pancreas transplant; [phone] [place], [place] [address] Aftercare following organ transplant; [phone] Prophylactic im munotherapy (Work) Social History Tobacco [...] EDT Transplant Medicine Follow Up Reese Perezjamie [id number] 1965 Transplant ID: Date: 05/13/2021 Patient: Reese Hsu Transplant Date: 08/28/2013 Organ(s) Pancreas [place] organ diagnosis: Diabetes Mellitus - Type I [...] every 5 for non diabetics - NEEDS [place] kidney ultrasound looking for renal cell CA, [...] TRANSPLANT performed by Iraj Keller MD at [facility] OR ??? PRO TRANSPLANT, PREP DONOR PANCREAS ?? 08/28/2013 ?? @PREPARATION CADAVERIC PANCREAS, STANDARD performed by Iraj Keller MD at [facility] OR ??? PRO UNLISTED PROCEDURE, MUSCULOSKELETAL SYSTEM, GENERAL ?? 10 years ?? carpel tunnel ??? PRO UPPER GI ENDOSCOPY, BIOPSY ?? 12/31/2011 ?? UPPER GASTROINTESTINAL ENDOSCOPY,WITH BIOPSY SINGLE OR MULTIPLE performed by CLAYTON BHAKTA at [facility] ENDOSCOPY ??? PRO UPPER GI ENDOSCOPY, BIOPSY N/A 08/15/2015 ?? EGD WITH BIOPSY performed by Clayton Bhakta MD at [facility] ENDOSCOPY ??? SHOULDER SURGERY ? UPPER GI ENDOSCOPY, EXAM ?? 12/31/2011 ?? UPPER GI ENDOSCOPY performed by CLAYTON BHAKTA at [facility] ENDOSCOPY ? Current Outpatient Medications: ??? Mometasone-Formoterol [...] Cream, , Disp: , Rfl: ??? HYDROcodone-acetaminophen ([place]) 10-325 mg Tablet, TAKE 1 TABLET BY [...] from 05/13/2021 in Solid Organ Transplant at [facility] Weight 100.5 kg (221 lb 9.6 oz) [...] UA Latest Ref Range: Clear Clear Spec [place] UA Latest Ref Range: 1.005 - 1.030 [...] hydrated. . I also informed . Reese Hus to keep up with all recommended health [...] 30 minutes in direct face to face certified lactation counselor. Follow-up: 6 months Labs quarterly. documented [...] immunotherapy documented in this encounter Care Teams Agricultural Engineering Technician Relationship Specialty Start Date End Date Anna Mullen MD PCP - General 12/03/10 [address] [place] [address] documented as of this encounter
--- OUTSIDE RECORDS SUMMARY | 2022-04-04 00:42 | XMS_ITS | Encounter Summary ---
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 Method Time Signature Glucose UA Negative Negative [facility] Protein UA Negative Negative [facility] mg/dL [facility] Bilirubin UA Negative Negative [facility] mg/dL [facility] Comment: Clinical correlation required [...] HOSPITAL LABORATORY Blood UA Negative Negative mg/dL [facility] Ketones UA Negative Negative mg/dL [facility] Nitrite UA Negative Negative [facility] Leukocytes UA Negative Negative [facility] LABORATORY Appearance UA Clear Clear [facility] Spec [place] UA 1.010 1.005 - 1.030 [facility] Color UA Yellow Yellow [facility] Culture Reflexed No [facility] Specimen Anatomical Collection Method Collection Time Receive d Time (Source) Location / / Volume Laterality Clean Catch 04/16/2021 9:45 AM 9:58 Urine EDT AM EDT Resulting Agency Comment Spec In Lab Eriberto Melgar MD URINE ORDERABLES Performing Organization Address City/State/ZIP Code Phon e Number [place] [phone] [facility] [address] Differential, Automated (04/16/2021 9:40 AM EDT) athologist Signature Neutrophils % 46.2 % [facility] Neutr Abs (ANC) 3.20 1.70 - [facility] 6.10 [facility] x10(3)/[facility] LABORATORY Lymphocytes % 41.7 % [facility] Lymphocytes Abs 2.9 0.9 - 3.2 [facility] x10(3)/[facility] LABORATORY Monocytes % 8.2 % [facility] Monocyte Abs 0.6 0.3 - 0.9 [facility] x10(3)/[facility] LABORATORY Eosinophils % 2.9 % [facility] Eosinophils Abs 0.2 0.0 - 0.4 [facility] x10(3)/[facility] LABORATORY Basophils % 0.6 % [facility] Basophils Abs 0.0 0.0 - 0.1 [facility] x10(3)/[facility] LABORATORY Immature Gran % 0.40 % [facility] Comment: Immature granulocytes(IG's)percentage an d absolute count will include metamyelocytes, myelocytes, and promyelo cytes. Blood smears from CBCs yielding IG's will be scanned manually for concor dance. If this scan disagrees with the automated IG or if promyelocytes are not ed, a manual differential will be performed. Kym Gran Abs 0.03 0.00 - 0.04 x10(3)/[facility] Specimen Anatomical Collection Method Collection Time Receive d Time (Source) Location / / Volume Laterality Blood 04/16/2021 9:40 AM 9:49 EDT AM EDT Resulting Agency Comment Spec In Lab Eriberto [place] MD HEMATOLOGY ORDERABLES Performing Organization Address City/State/[place] [address] (ABNORMAL) Hemogram (04/16/2021 9:40 AM EDT) Analysis Performed At Patho logist Time Signature WBC 6.9 4.0 - 9.5 [facility] x10(3)/[facility] LABORATORY RBC 4.54 (L) 4.58 - [facility] 5.54 [facility] x10(6)/[facility] LABORATORY Hemoglobin 13.8 13.7 - [facility] 16.5 gm/dL [facility] Hematocrit 40.2 (L) 40.5 - [facility] [place] 48.5 % [facility] MCV 88.5 82.9 - [facility] 93.1 [facility] LABORATORY MCH 30.4 27.5 - [facility] 32.1 pg [facility] MCHC 34.3 32.0 - [facility] 35.7 gm/dL [facility] Platelets 202 145 - 357 [facility] x10(3)/[facility] LABORATORY RDWSD 41.6 36.0 - [place] 45.0 [facility] LABORATORY RDWCV 12.7 11.4 - [facility] 13.8 % [facility]ORY MPV 10.4 7.6 - 12.9 [facility] LABORATORY nRBC % Auto 0.0 % [facility] nRBC Abs Auto 0.000 0.000 - [facility] 0.000 [facility] x10(3)/[facility] LABORATORY Specimen Anatomical Collection Method Collection Time Receive d Time (Source) Location / / Volume Laterality Blood 04/16/2021 9:40 AM 9:49 EDT AM EDT Resulting Agency Comment Spec In Lab Eriberto [place] MD HEMATOLOGY ORDERABLES Performing Organization Address City/[facility]/ZIP Code Phon e Number [address] Tacrolimus level (04/16/2021 9:40 AM EDT) athologist Signature Tacrolimus Lvl 8.7 ng/mL [facility] Comment: Trough therapeutic range is [...] Organization Address City/State/ZIP Code Phon e Number [address] C-peptide (04/16/2021 9:40 AM EDT) athologist Signature C-Peptide 2.8 1.1 - 4.4 [facility] ng/mL [facility] Comment: As of December 05, 2020, C-Peptide testing h as moved from the [employer] to the [employer] [place]. Please note the updated reference intervals. Specimen Anatomical Collection Method Collection Time Receive d Time (Source) Location / / Volume Laterality Blood 04/16/2021 9:40 AM 9:49 EDT AM EDT Resulting Agency Comment Spec In Lab Eriberto [place] MD CHEMISTRY ORDERABLES Performing Organization Address City/State/[place] [address] (ABNORMAL) Comprehensive metabolic panel (non-fasting) (04/16/2021 9:40 AM EDT) athologist Signature Glucose Lvl 102 65 - 199 [facility] mg/dL [facility] Comment: Diabetes: >=200 mg/dL plus symp toms BUN 17 10 - 20 mg/dL [facility] Creatinine 1.10 0.80 - 1.50 mg/dL [facility] Sodium 134 (L) 135 - 145 mmol/L [facility] Potassium 4.1 3.5 - 5.0 mmol/L [facility] Comment: Please note: ??Patients with WBC >100,00 0 may have falsely elevated Potassium levels. ??For accurate Potassium quantif ication in these patients send serum separator tube (gold top) for subsequent determinations. ??Contact the Clinical Chemistry Laboratory if there are any qu estions. Chloride 97 (L) 98 - 107 mmol/L [facility] CO2 29 22 - 31 mmol/L [facility] Anion Gap 8 5 - 15 mmol/L [facility] Calcium 9.4 8.5 - 10.5 mg/dL [facility] Total Protein 7.1 6.1 - 8.0 gm/dL [facility] Albumin 4.5 3.2 - 5.2 gm/dL [facility] AST 20 0 - 39 unit/L [facility] ALT 22 0 - 55 unit/L [facility] Alk Phos 115 40 - 130 unit/L [facility] Total Bilirubin 0.9 0.2 - 1.3 mg/dL [facility] Estimated GFR 76 >=60 mL/min/1.73 m?? [facility] Comment: This patient? s estimated [...] Melgar MD CHEMISTRY ORDERABLES Performing Organization Address City/[facility]/ZIP Code Phon e Number [address] Lipase (04/16/2021 9:40 AM EDT) P athologist Signature Lipase 23 0 - 60 [facility] LABORATORY Specimen Anatomical Collection Method Collection Time Receive d Time (Source) Location / / Volume Laterality Blood 04/16/2021 9:40 AM 9:49 EDT AM EDT Resulting Agency Comment Spec In Lab Eriberto [place]gar MD CHEMISTRY ORDERABLES Performing Organization Address City/[facility]/ZIP [facility] Phon e Number [address] Amylase (04/16/2021 9:40 AM EDT) P athologist Signature Amylase 53 28 - 100 [facility] LABORATORY Specimen Anatomical Collection Method Collection Time Receive d Time (Source) Location / / Volume Laterality Blood 04/16/2021 9:40 AM 9:49 EDT AM EDT Resulting Agency Comment Spec In Lab Eriberto [place] MD CHEMISTRY ORDERABLES Performing Organization Address City/State/ZIP Code Phon e Number [address] Uric acid (04/16/2021 9:40 AM EDT) P athologist Signature Uric Acid 5.8 3.5 - 8.5 [facility] mg/dL [facility] Specimen Anatomical Collection Method Collection Time Receive d Time (Source) Location / / Volume Laterality Blood 04/16/2021 9:40 AM 9:49 EDT AM EDT Resulting Agency Comment Spec In Lab Eriberto Melgar MD CHEMISTRY ORDERABLES Performing Organization Address City/[facility]/ZIP Code Phon e Number [address] Cholesterol, total (04/16/2021 9:40 AM EDT) athologist Signature Chol, Total 121 mg/dL [facility] Comment: Lower Risk: <200 mg/dL Average Risk: 200-239 mg/dL Higher Risk: >lg=051 mg/dL Lipid Interpretation See Note [facility] Comment: Lipid management should be guided by a p atient? s ASCVD risk, goals and preferences. ACC/AHA Guidelines recommend high intens ity statin if clinical ASCVD or LDL greater than or equal to 190 mg/dL. http://[employer].com/IBS-PLN-Jtwagofhu Adults aged 40-75 with LDL 70-189 mg/dL should have their 10 year ASCVD risk estimated with the ACC/AHA ASCVD risk es timator http://tools.acc.org/IZVXT-Kajo-Brlynkkt r/ Statin should be discussed if risk [...] Melgar MD CHEMISTRY ORDERABLES Performing Organization Address City/[facility]/ZIP [place] [address] Phosphorus (04/16/2021 9:40 AM EDT) P athologist Signature Phosphorus 3.1 2.5 - 4.5 [facility] [place] mg/dL [facility] Specimen Anatomical Collection Method Collection Time Receive d Time (Source) Location / / Volume Laterality Blood 04/16/2021 9:40 AM 9:49 EDT AM EDT Resulting Agency Comment Spec In Lab Eriberto Melgar MD CHEMISTRY ORDERABLES Performing Organization Address City/[facility]/ZIP [place] [address] (ABNORMAL) Magnesium (04/16/2021 9:40 AM EDT) athologist Signature Magnesium 0.65 (L) 0.69 - 1.07 [facility] mmol/L [facility] Specimen Anatomical Collection Method Collection Time Receive d Time (Source) Location / / Volume Laterality Blood 04/16/2021 9:40 AM 9:49 EDT AM EDT Resulting Agency Comment Spec In Lab Eriberto Melgar MD CHEMISTRY ORDERABLES Performing Organization Address City/[facility]/ZIP Code Phon e Number [address] Reticulocyte Count (04/16/2021 9:40 AM EDT) P athologist Signature Retic Ct % 1.4 0.7 - 2.6 [facility] LABORATORY Retic Ct Abs 0.060 0.030 - [facility] 0.120 [facility] x10(6)/[facility] LABORATORY Immature Retic% 8.7 0.0 - 15.6 [facility] Reticulated Hgb 35.1 31.3 - [facility] 40.2 [facility] LABORATORY Specimen Anatomical Collection Method Collection Time Receive d Time (Source) Location / / Volume Laterality Blood 04/16/2021 9:40 AM 9:49 EDT AM EDT Resulting Agency Comment Spec In Lab Eriberto Melgar MD HEMATOLOGY ORDERABLES Performing Organization Address City/State/[place] [address] Hemoglobin A1c (04/16/2021 9:40 AM EDT) athologist Signature Hemoglobin A1C 5.5 4.3 - 5.6 [facility] Comment: Reference Range: 4.3 - [...] Mellitus, Diabetes Care 2013; 36: Suppl. 1, E77-91 Est Avg Gluc 111 mg/dL [facility] Comment: eAG equivalents for HbA1c percentages: HbA1c(%) ?eAG(mg/dL) 6.0 ?126 6.5 ?140 7.0 ?154 7.5 ?169 8.0 ?183 8.5 ?197 9.0 ?212 9.5 ?226 10.0 ? 240 Limitations: The eAG calculation has not been validated on women, individuals below 18 years old and above 70 years old, and individuals with hemoglobinopathies. Additional resources are available on [facility] ADA website. Edinson GRISSOM, Nathaniel J, Ari R, et al. ??Tr anslating the A1C assay into estimated average glucose values. ??Diabetes Care 2008:31(8):9838-3617. 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
--- OUTSIDE RECORDS SUMMARY | 2022-04-04 00:42 | XMS_ITS | Encounter Summary ---
:1965 Author Organization [facility] [place] [address] Care Team Providers Name Role Phone Anna Mullen MD Primary Care Provider Reason for Visit Reason Comments Medication Refill Encounter Details Date Type Department Care Team Description 04/20/2021 Refill Solid Organ Transplant at Eriberto Emery MD [facility] [place] [address] [place] [address] [phone] (Wo rk) Social History Tobacco Use Types [...] on filedocumented in this encounter Care Teams Heel Scorer Relationship Specialty Start Date End Date Anna Mullen MD PCP - General 12/03/10 [address] [place], [place] [address] documented as of this encounter
--- OUTSIDE RECORDS SUMMARY | 2022-04-04 00:42 | XMS_ITS | Encounter Summary ---
:1965 Author Organization [facility] [place] [address] Care Team Providers Name Role Phone Anna Mullen MD Primary Care Provider Encounter Details Date Type Department Care Team Description 07/18/2021 Telephone Pulmonology at [facility] Mauricio Villagran MD [facility] [place] [address] Pulmonary Medicine [phone] [place] [phone] (Wo rk) Social History Tobacco Use Types [...] on filedocumented in this encounter Care Teams Intelligence Specialist Relationship Specialty Start Date End Date Anna Mullen MD PCP - General 12/03/10 [address] [place] [address] documented as of this encounter
--- OUTSIDE RECORDS SUMMARY | 2022-04-04 00:42 | XMS_ITS | Encounter Summary ---
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 HC VENIPUNCTURE Routine 12/12/2021 9:08 H/O pancreas tra nsplant Results for this AM EDT [facility] current use of pro cedure are in immunosuppressiv e drug the results Vitamin D deficiency section . 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 HC RETIC,AUTO Routine 12/12/2021 9:08 H/O pancreas tra nsplant Results for this INCLUDES RETHE & IRF AM EDT terminal operator current us e of procedure are in immunosuppressiv e drug the results Vitamin D deficiency section . HC CBC,PLT & AUTO Routine 12/12/2021 9:08 H/O pancreas t ransplant DIFF AM EDT [facility] current use of immunosuppressiv e drug Vitamin D deficiency HC URIC ACID, SERUM Routine 12/12/2021 9:08 H/O pancreas transplant Results for this AM EDT [facility] current use of pro cedure are in immunosuppressiv e drug the results Vitamin D deficiency section . HC PHOSPHORUS, SERUM Routine 12/12/2021 9:08 H/O pancrea s transplant Results for this AM EDT [facility] current use of pro cedure are in immunosuppressiv e drug the results Vitamin D deficiency section . 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 HC LIPASE Routine 12/12/2021 9:08 H/O pancreas tra nsplant Results for this AM EDT [facility] current use of pro cedure are in immunosuppressiv e drug the results Vitamin D deficiency section . HC HEMOGLOBIN A1C Routine 12/12/2021 9:08 H/O pancreas t ransplant Results for this AM EDT [facility] current use of pro cedure are in immunosuppressiv e drug the results Vitamin D deficiency section . 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 HC AMYLASE Routine 12/12/2021 9:08 H/O pancreas tra nsplant Results for this AM EDT [facility] current use of pro cedure are in immunosuppressiv e drug the results Vitamin D deficiency section . 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 URINALYSIS WITH Routine 12/12/2021 9:03 H/O pancreas tra nsplant Results for this REFLEX CULTURE AM EDT terminal operator current use of p rocedure are in immunosuppressiv e drug the results Vitamin D deficiency section . documented in this encounter Results (ABNORMAL) Differential, Automated (12/12/2021 9:08 AM EDT) [facility] Method Time Signature Neutrophils % 43.9 % [facility] Neutr Abs (ANC) 3.28 1.70 - [facility] 6.10 [facility] x10(3)/[facility] LABORATORY Lymphocytes % 43.6 % [facility] Lymphocytes Abs 3.3 (H) 0.9 - 3.2 [facility] x10(3)/[facility] LABORATORY Monocytes % 7.8 % [facility] Monocyte Abs 0.6 0.3 - 0.9 [facility] x10(3)/[facility] LABORATORY Eosinophils % 3.1 % [facility] Eosinophils Abs 0.2 0.0 - 0.4 [facility] x10(3)/[facility] LABORATORY Basophils % 1.1 % [facility] Basophils Abs 0.1 0.0 - 0.1 [facility] x10(3)/[facility] LABORATORY Immature Gran % 0.50 % [facility] Comment: Immature granulocytes(IG's)percentage an d absolute count will include metamyelocytes, myelocytes, and promyelo cytes. Blood smears from CBCs yielding IG's will be scanned manually for concor dance. If this scan disagrees with the automated IG or if promyelocytes are not ed, a manual differential will be performed. Kym Gran Abs 0.04 0.00 - 0.04 x10(3)/[facility] MAR Y [facility] Specimen Anatomical Collection Method Collection Time Receive d Time (Source) Location / / Volume Laterality Blood 12/12/2021 9:08 AM 2 9:28 EDT AM EDT Resulting Agency Comment Spec In Lab Eriberto Melgar MD HEMATOLOGY ORDERABLES Performing Organization Address City/State/[place] [address] Hemogram (12/12/2021 9:08 AM EDT) athologist Signature WBC 7.5 4.0 - 9.5 [facility] x10(3)/[facility] LABORATORY RBC 4.84 4.58 - [facility] 5.54 [facility] x10(6)/[facility] LABORATORY Hemoglobin 14.9 13.7 - [facility] 16[facility] g/dL [facility] Hematocrit 43.8 40.5 - [facility] 48.5 % [facility] MCV 90.5 82.9 - [facility] 93.1 [facility] LABORATORY MCH 30.8 27.5 - [facility] 32.1 pg [facility] MCHC 34.0 32.0 - [facility] 35.7 g/dL [facility] Platelets 215 145 - 357 [facility] x10(3)/[facility] LABORATORY RDWSD 41.6 36.0 - [facility] 45.0 [facility] LABORATORY RDWCV 12.7 11.4 - [facility] 13.8 % [facility] MPV 11.2 7.6 - 12.9 [facility] LABORATORY nRBC % Auto 0.0 % [facility] nRBC Abs Auto 0.000 0.000 - [facility] 0.000 [facility] x10(3)/[facility] LABORATORY Specimen Anatomical Collection Method Collection Time Receive d Time (Source) Location / / Volume Laterality Blood 12/12/2021 9:08 AM 2 9:28 EDT AM EDT Resulting Agency Comment Spec In Lab Eriberto Melgar MD HEMATOLOGY ORDERABLES Performing Organization Address City/[facility]/ZIP Code Phon e Number [address] Reticulocyte Count (12/12/2021 9:08 AM EDT) P athologist Signature Retic Ct % 1.5 0.7 - 2.6 [facility] LABORATORY Retic Ct Abs 0.070 0.030 - [facility] 0.120 [facility] x10(6)/[facility] LABORATORY Immature Retic% 9.8 0.0 - 15.6 [facility] K % [facility] Reticulated Hgb 36.0 31.3 - [facility] 40.2 [facility] LABORATORY Specimen Anatomical Collection Method Collection Time Receive d Time (Source) Location / / Volume Laterality Blood 12/12/2021 9:08 AM 2 9:28 EDT AM EDT Resulting Agency Comment Spec In Lab Eriberto Melgar MD HEMATOLOGY ORDERABLES Performing Organization Address City/[facility]/ZIP Code Phon e Number [address] (ABNORMAL) Magnesium (12/12/2021 9:08 AM EDT) P athologist Signature Magnesium 0.68 (L) 0.69 - 1.07 [facility] mmol/L [facility] Specimen Anatomical Collection Method Collection Time Receive d Time (Source) Location / / Volume Laterality Blood 12/12/2021 9:08 AM 2 9:28 EDT AM EDT Resulting Agency Comment Spec In Lab Eriberto Melgar MD CHEMISTRY ORDERABLES Performing Organization Address City/[facility]/ZIP Code Phon e Number [address] Phosphorus (12/12/2021 9:08 AM EDT) athologist Signature Phosphorus 3.0 2.5 - 4.5 [facility] mg/dL [facility] Specimen Anatomical Collection Method Collection Time Receive d Time (Source) Location / / Volume Laterality Blood 12/12/2021 9:08 AM 2 9:28 EDT AM EDT Resulting Agency Comment Spec In Lab Eriberto Melgar MD CHEMISTRY ORDERABLES Performing Organization Address City/State/ZIP Code Phon e Number [address] Cholesterol, total (12/12/2021 9:08 AM EDT) athologist Signature Chol, Total 117 mg/dL [facility] Comment: Lower Risk: <200 mg/dL Average Risk: 200-239 mg/dL Higher Risk: >ig=360 mg/dL Lipid Interpretation See Note [facility] Comment: Lipid management should be guided by a p atient? s ASCVD risk, goals and preferences. ACC/AHA Guidelines recommend high intens ity statin if clinical ASCVD or LDL greater than or equal to 190 mg/dL. [email or web address] Adults aged 40-75 with LDL 70-189 mg/dL should have their 10 year ASCVD risk estimated with the ACC/AHA ASCVD risk es timator http://tools.acc.org/MDZJK-Vwxz-Gayillzg r/ Statin should be discussed if risk [...] Melgar MD CHEMISTRY ORDERABLES Performing Organization Address City/[facility]/ZIP Code Phon e Number [address] Uric acid (12/12/2021 9:08 AM EDT) athologist Signature Uric Acid 6.1 3.5 - 8.5 [facility] mg/dL [facility] Specimen Anatomical Collection Method Collection Time Receive d Time (Source) Location / / Volume Laterality Blood 12/12/2021 9:08 AM 2 9:28 EDT AM EDT Resulting Agency Comment Spec In Lab Eriberto Melgar MD CHEMISTRY ORDERABLES Performing Organization Address City/[facility]/ZIP Code Phon e Number [address] Amylase (12/12/2021 9:08 AM EDT) P athologist Signature Amylase 51 28 - 100 [facility] LABORATORY Specimen Anatomical Collection Method Collection Time Receive d Time (Source) Location / / Volume Laterality Blood 12/12/2021 9:08 AM 2 9:28 EDT AM EDT Resulting Agency Comment Spec In Lab Eriberto Melgar MD CHEMISTRY ORDERABLES Performing Organization Address City/[facility]/[place] [address] Lipase (12/12/2021 9:08 AM EDT) P athologist Signature Lipase 22 0 - 60 [facility] LABORATORY Specimen Anatomical Collection Method Collection Time Receive d Time (Source) Location / / Volume Laterality Blood 12/12/2021 9:08 AM 2 9:28 EDT AM EDT Resulting Agency Comment Spec In Lab Eriberto Melgar MD CHEMISTRY ORDERABLES Performing Organization Address City/[facility]/ZIP [facility] [place] [place] [address] Comprehensive metabolic panel (non-fasting) (12/12/2021 9:08 AM EDT) P athologist Signature Glucose Lvl 103 65 - 199 [facility] mg/dL [facility] Comment: Diabetes: >=200 mg/dL plus symp toms BUN 12 10 - 20 mg/dL [facility] Creatinine 0.97 0.80 - 1.50 mg/dL [facility] Sodium 137 135 - 145 mmol/L [facility] Potassium 4.2 3.5 - 5.0 mmol/L [facility] Comment: Please note: ??Patients with WBC >100,00 0 may have falsely elevated Potassium levels. ??For accurate Potassium quantif ication in these patients send serum separator tube (gold top) for subsequent determinations. ??Contact the Clinical Chemistry Laboratory if there are any qu estions. Chloride 101 98 - 107 mmol/L [facility] CO2 27 22 - 31 mmol/L [facility] Anion Gap 9 5 - 15 mmol/L [facility] Calcium 9.3 8.5 - 10.5 mg/dL [facility] Total Protein 7.5 6.1 - 8.0 g/dL [facility] Albumin 4.7 3.2 - 5.2 g/dL [facility] AST 22 0 - 39 unit/L [facility] ALT 20 0 - 55 unit/L [facility] Alk Phos 128 40 - 130 unit/L [facility] Total Bilirubin 0.6 0.2 - 1.3 mg/dL [facility] Estimated GFR 88 >=60 mL/min/1.73 m?? [facility] Comment: This patient? s estimated [...] Organization Address City/State/[place] [address] Hemoglobin A1c (12/12/2021 9:08 [...] Mellitus, Diabetes Care 2013; 36: Suppl. 1, S67-02 Est Avg Gluc 99 mg/dL [facility] Comment: eAG equivalents for HbA1c [...] into estimated average glucose values. ??Diabetes Care 2008:31(8):8704-4974. Specimen Anatomical Collection Method Collection Time Receive d Time (Source) Location / / Volume Laterality Blood 12/12/2021 9:08 AM 2 9:28 EDT AM EDT Resulting Agency Comment Spec In Lab Eriberto Melgar MD CHEMISTRY ORDERABLES Performing Organization Address City/[facility]/ZIP Code Phon e Number [address] C-peptide (12/12/2021 9:08 AM EDT) P athologist Signature C-Peptide 2.7 1.1 - 4.4 [facility] ng/mL [facility] Comment: As of December 05, 2020, C-Peptide testing h as moved from the [employer] Chief to the Nora Dairn. Please note the updated reference intervals. Specimen Anatomical Collection Method Collection Time Receive d Time (Source) Location / / Volume Laterality Blood 12/12/2021 9:08 AM 2 9:28 EDT AM EDT Resulting Agency Comment Spec In Lab Eriberto Melgar MD CHEMISTRY ORDERABLES Performing Organization Address City/[facility]/ZIP Code Phon e Number [address] BKV Quant Blood (12/12/2021 9:08 AM EDT) Patholo gist Method Time Signature BKV Blood Not Detected Not Detected [facility] Result IU/mL [facility] Comment: Indication for Study: [...] Melgar MD IMMUNOLOGY ORDERABLES Performing Organization Address City/[facility]/[place] [address] Tacrolimus level (12/12/2021 9:08 AM EDT) P athologist Signature Tacrolimus Lvl 11.3 ng/mL [facility] Comment: Trough therapeutic range is [...] Melgar MD CHEMISTRY ORDERABLES Performing Organization Address City/[facility]/ZIP Code Phon e Number [address] Urinalysis with reflex Culture (12/12/2021 9:03 AM EDT) Patholo gist Method Time Signature Glucose UA Negative Negative [facility] mg/dL [facility] Protein UA Negative Negative [facility] mg/dL [facility] Bilirubin UA Negative Negative [facility] mg/dL [facility] Comment: Clinical correlation required for positi ve Urine Bilirubin results as false positive may occur with some drugs and d rug related products. If a false positive is suspected a serum total bili sinha should be considered if clinically indicated. Urobilinogen UA Normal Normal mg/dL [facility] pH UA 7.0 5.0 - 8.0 [facility] Blood UA Negative Negative mg/dL [facility] Ketones UA Negative Negative mg/dL [facility] Nitrite UA Negative Negative [facility] LAB[facility]ORY Leukocytes UA Negative Negative [facility] LABORATORY Appearance UA Clear Clear [facility] Spec [place] UA 1.008 1.005 - 1.030 [facility] Color UA Yellow Yellow [facility] Culture Reflexed No [facility] Specimen Anatomical Collection Method Collection Time Receive d Time (Source) Location / / Volume Laterality Clean Catch 12/12/2021 9:03 AM 9:36 Urine EDT AM EDT Resulting Agency Comment Spec In Lab Eriberto Melgar MD URINE ORDERABLES Performing Organization Address City/State/ZIP Code Phon e Number [place] [id number] HOS[address] documented in this encounter Visit Diagnoses Diagnosis H/O pancreas transplant 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 [facility] current use of immunosuppressi ve drug Vitamin D deficiency Unspecified vitamin D deficiency documented in this encounter Care Teams Internet Marketing Manager Relationship Specialty Start Date End Date Anna Mullen MD PCP - General 12/03/10 [address] [place] [address] documented as of this encounter
--- OUTSIDE RECORDS SUMMARY | 2022-04-04 00:42 | XMS_ITS | Encounter Summary ---
:1965 Author Organization [facility] [address] Care Team Providers Name Role Phone Anna Mullen MD Primary Care Provider Encounter Details Date Type Department Care Team Description 05/30/2021 Hospital Encounter Pulmonology at [facility] (shortness [facility] breath) [place] [address] Social History Tobacco Use Types Packs/Day [...] TAKE 1 TABLET BY 0 07/18 n ([place]) 10-325 mg MOUTH TWICE DAILY Tablet NEEDED [...] / FVC LLN 67 % COMPAS PFT YDS68-70 Actual 3.81 L/s COMPAS PFT Pre-BD FTP01-85 Pre-BD 111 % COMPAS PFT % of Predicted ETK90-48 3.42 L/s COMPAS PFT Predicted QSM42-51 Pre-BD 0.33 COMPAS PFT Z-Score DLCO Hb [...] breath documented in this encounter Care Teams County Attorney Relationship Specialty Start Date End Date Anna Mullen MD PCP - General 12/03/10 [address] [place] [address] documented as of this encounter
--- OUTSIDE RECORDS SUMMARY | 2022-04-04 00:42 | XMS_ITS | Encounter Summary ---
:1965 Author Organization [facility] [place] [address] Care Team Providers Name Role Phone Anna Mullen MD Primary Care Provider Reason for Referral Diagnostic Test (Routine) - Closed Specialty Diagnoses / Procedures Referred By Contact Refer red To Contact Radiology Diagnoses Ischemic stroke Ni Child APRN [facility] Rad Mri Procedures MRI Angiogram Head wo Contrast (Generic) [facility] [place] [address] [place] [address] Referral ID Status Reason Start Date Expiration Date Visits V isits Requested Authorized [id number] Closed Specialty 05/31/2021 11/29/2022 1 Service Requested Diagnostic Test (Routine) - Closed Specialty Diagnoses / Procedures Referred By Contact Refer red To Contact Radiology Diagnoses Ischemic stroke Ni Child APRN [facility] Rad Mri Procedures MRI Brain wo Contrast [facility] [place] [address] [place] [address] Referral ID Status Reason Start Date Expiration Date Visits V isits Requested Authorized [id number] Closed Specialty 07/02/2021 08/30/2021 1 1 Service Requested Reason for Visit Diagnostic Test (Routine) - Closed Specialty Diagnoses / Procedures Referred By Contact Refer red To Contact Radiology Diagnoses Ischemic stroke Ni Child, FRANCISCA [facility] Rad Mri Procedures MRI Angiogram Head wo Contrast (Generic) [facility] [place] [address] [place] [address] Referral ID Status Reason Start Date Expiration Date Visits V isits Requested Authorized [id number] Closed Specialty 05/31/2021 11/29/2022 1 1 Service Requested Encounter Details Date Type Department Care Team Description 07/04/2021 Hospital Encounter MRI at [facility] Ni Child, Ischemic stroke [facility] [place] [address] Neurology Dept [phone] [place], [place] [address] Social History Tobacco Use Types [...] TAKE 1 TABLET BY 0 07/18 n ([place]) 10-325 mg MOUTH TWICE DAILY Tablet NEEDED [...] questions please contact the health health care assistant that requested your imaging first. ? Narrative 07/04/2021 11:25 AM EDT EXAMINATION: MRI BRAIN WO CONTRAST, MRI ANGIOGRAM HEAD WO CONTRAST (GENERIC) CLINICAL HISTORY: Stroke, follow up Patient with worsening globus sensation, worsening left-sided weakness, ptosis. please assess for recurrent stroke. (acc ession [id number]), Patient with worsening globus sensation, worsening left-sided w eakness, ptosis. 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 Please assess for new stroke/vascular abnormalities. ( accession [id number]) TECHNIQUE: MRA of the head, and MRI of the brain, p erformed without contrast. 3-D MIP reconstructions were created. COMPARISON: Brain MRI dated 08/06/2019. FINDINGS: Brain MRI: The T2 and [id number] images are laura ewhat limited by motion [...] please assess for recurrent stroke. (acc ession [id number]), Patient with worsening globus sensation, worsening left-sided w eakness, ptosis. 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 Please assess for new stroke/vascular abnormalities. ( accession [id number]) TECHNIQUE: MRA of the head, and MRI of the brain, p erformed without contrast. 3-D MIP reconstructions were created. COMPARISON: Brain MRI dated 08/06/2019. FINDINGS: Brain MRI: The T2 and [id number]-rx-[id number] images are laura ewhat limited by motion [...] questions please contact the health health care assistant that requested your imaging first. Ni Child METAL DRILL PRESS OPERATOR IMG MRI ORDERABLES MRI Brain wo Contrast [...] questions please contact the health health care assistant that requested your imaging first. ? Narrative 07/04/2021 11:25 AM EDT EXAMINATION: MRI BRAIN WO CONTRAST, MRI ANGIOGRAM HEAD WO CONTRAST (GENERIC) CLINICAL HISTORY: Stroke, follow up Patient with worsening globus sensation, worsening left-sided weakness, ptosis. please assess for recurrent stroke. (acc ession [id number]), Patient with worsening globus sensation, worsening left-sided w eakness, ptosis. 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 Please assess for new stroke/vascular abnormalities. ( accession [id number]) TECHNIQUE: MRA of the head, and MRI of the brain, p erformed without contrast. 3-D MIP reconstructions were created. COMPARISON: Brain MRI dated 08/06/2019. FINDINGS: Brain MRI: The T2 and [id number]-eh-[id number] images are laura ewhat limited by motion [...] please assess for recurrent stroke. (acc ession [id number]), Patient with worsening globus sensation, worsening left-sided w eakness, ptosis. 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 Please assess for new stroke/vascular abnormalities. ( accession [id number]) TECHNIQUE: MRA of the head, and MRI of the brain, p erformed without contrast. 3-D MIP reconstructions were created. COMPARISON: Brain MRI dated 08/06/2019. FINDINGS: Brain MRI: The T2 and lvkp-rs-jsvejw images are laura ewhat limited by motion [...] questions please contact the health health care assistant that requested your imaging first. Ni Child APRN IMG MRI ORDERABLES documented in this encounter Visit Diagnoses Diagnosis Ischemic stroke documented in this encounter Care Teams Fourth Officer Relationship Specialty Start Date End Date Anna Mullen MD PCP - General 12/03/10 [address] [place] [address] documented as of this encounter
--- OUTSIDE RECORDS SUMMARY | 2022-04-04 00:43 | XMS_ITS | Encounter Summary ---
:1965 Author Organization [facility] [place] [address] Care Team Providers Name Role Phone Anna Mullen MD Primary Care Provider Reason for Visit Reason Onset Date Comments Medication Refill 07/24/2020 Encounter Details Date Type Department Care Team Description 07/24/2020 Refill Neurology at [facility] Kaitlyn Baltazar APRN [facility] [place] [address] NEUROLOGY DEPT. [phone] [place], [place] [address] (Wo rk) Social History [...] on filedocumented in this encounter Care Teams Harpoon Engagement Planning Operator Relationship Specialty Start Date End Date Anna Mullen MD PCP - General 12/03/10 [address] [place], [place] [address] documented as of this encounter
--- OUTSIDE RECORDS SUMMARY | 2022-04-04 00:43 | XMS_ITS | Encounter Summary ---
:1965 Author Organization [facility] [place] [address] Care Team Providers Name Role Phone Anna Mullen MD Primary Care Provider Reason for Visit Reason Comments Medication Refill Encounter Details Date Type Department Care Team Description 04/29/2020 Refill Solid Organ Transplant at Eriberto Emery [facility] [place] [address] [place] [address] [phone] (Wo rk) Social History Tobacco Use Types [...] on filedocumented in this encounter Care Teams Flash Oven Operator Relationship Specialty Start Date End Date Anna Mullen MD PCP - General 12/03/10 [address] [place] [address] documented as of this encounter
--- OUTSIDE RECORDS SUMMARY | 2022-04-04 00:43 | XMS_ITS | Encounter Summary ---
:1965 Author Organization [facility] [place] [address] Care Team Providers Name Role Phone Anna Mullen MD Primary Care Provider Encounter Details Date Type Department Care Team Description 02/28/2020 Telephone Solid Organ Transplant at Kindra Nicholson [facility], HEEL WASHER [place] [address] Social History Tobacco Use Types Packs/Day [...] his appt. he will check access to [facility] and appt verification and call us [...] Immunizations: Last Flu Shot (yearly): May 2019 [id number] (every 5 years): Jul 2019 Tetanus (TDAP) [...] last scan: 2012 Where was this done: [facility] Digital Rectal Exam (YULISSA)/PSA (yearly) When was [...] filedocumented in this encounter Care Teams Health Center Manager Relationship Specialty Start Date End Date Anna Mullen MD PCP - General 12/03/10 [address] [place] [address] documented as of this encounter
--- OUTSIDE RECORDS SUMMARY | 2022-04-04 00:43 | XMS_ITS | Encounter Summary ---
:1965 Author Organization [facility] [place] [address] Care Team Providers Name Role Phone Anna Mullen MD Primary Care Provider Reason for Referral Consultation (Routine) - Closed Specialty Diagnoses / Procedures Referred By Contact Refer red To Contact Pain and Spine Center Diagnoses Intervertebral disc disorder with radiculopathy of lumbar region *waiting for anticoag* Procedure - Left L2-L3 TFBenjy Castillo MD [facility] Pain [facility] [address] [address] [address] Phone: Fax: Referral ID Status Reason Start Date Expiration Date Visits V isits Requested Authorized [id number] Closed Consult, 05/24/2020 05/24/2021 1 1 Test & Treat Reason for Visit Reason Comments Back Pain left thigh pain Consultation (Routine) - Closed Specialty Diagnoses / Procedures Referred By Contact Refer red To Contact [facility] Sp[facility] Center Diagnoses Lumbar stenosis Spine - Lumbar stenosis/ LE weakness/ MRI 04/20/20 @ [facility] Anna Mullen MD [facility] Pain And [address] Spine [place], [place] [address] [place] [address] [place] [address] Phone: Fax: Referral ID Status Reason Start Date Expiration Date Visits Requ ested Visits Authorized [id number] Closed 04/23/2020 04/23/2021 1 1 Encounter Details Date Type Department Care Team Description 05/24/2020 Office Visit Pain and Spine Benjy Yang, Intervert ebral disc Center at [facility] MD disorder with [facility] radiculop athy of lumbar [address] [place] [facility] [address] [place] [address] [phone] Social History Tobacco Use Types Packs/Day Years [...] 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 He does not smoke or drink. Review [...] unspecified documented in this encounter Care Teams Nursing Services Manager Relationship Specialty Start Date End Date Anna Mullen MD PCP - General 12/03/10 [address] [place] [address] documented as of this encounter
--- OUTSIDE RECORDS SUMMARY | 2022-04-04 00:43 | XMS_ITS | Encounter Summary ---
:1965 Author Organization [facility] [place] [address] Care Team Providers Name Role Phone Anna Mullen MD Primary Care Provider Reason for Visit Reason Onset Date Comments Medication Refill 05/31/2020 Encounter Details Date Type Department Care Team Description 05/31/2020 Refill Solid Organ Transplant at Eriberto Emery MD [facility] Unique [place] [address] [place] [address] [phone] (Wo rk) Social History Tobacco Use Types [...] on filedocumented in this encounter Care Teams Leather Seasoner Relationship Specialty Start Date End Date Anna Mullen MD PCP - General 12/03/10 [address] [place], [place] [address] documented as of this encounter
--- OUTSIDE RECORDS SUMMARY | 2022-04-04 00:43 | XMS_ITS | Encounter Summary ---
:1965 Author Organization [facility] [place] [address] Care Team Providers Name Role Phone Anna Mullen MD Primary Care Provider Encounter Details Date Type Department Care Team Description 05/22/2020 Orders Only Pain and Spine Center Jessa Hubbard Acute low back pain, at [facility] unspecified back pain [facility] [place] [address] sciatica present [phone] Social History Tobacco Use Types Packs/Day Years [...] please contact e number below. ? Narrative 05/24/2020 11:36 AM EDT EXAMINATION: XR [...] present documented in this encounter Care Teams Industrial Welder Relationship Specialty Start Date End Date Anna Mullen MD PCP - General 4/5/11 [address] [place] [address] documented as of this encounter
--- OUTSIDE RECORDS SUMMARY | 2022-04-04 00:43 | XMS_ITS | Encounter Summary ---
:1965 Author Organization [facility] [place] [address] Care Team Providers Name Role Phone Anna [...] Expiration Date Visits Requ ested Visits Authorized [id number] 1 1 Encounter Details Date Type Department Care Team Description 08/15/2020 Surgery Pain Management Oracio Tran MD INJECTION, EPIDURAL, [facility] LUM BAR [facility] ([facility] WITH IMAGING [facility] PAIN CLINIC GUIDANCE (WRVU 1.8) [place] [address] [place] [address] [phone] Social History Tobacco Use Types Packs/Day Years [...] TAKE 1 TABLET BY 0 07/18 n ([place]) 10-325 mg MOUTH TWICE DAILY Tablet NEEDED [...] DIAGNOSTIC performed by Anna Rapp MD at [facility] ENDOSCOPY ??? PRO TRANSPLANT ALLOGRAFT PANCREAS 08/28/2013 @PANCREATIC TRANSPLANT performed by Iraj Keller MD at [facility] MAIN OR ??? PRO TRANSPLANT, PREP DONOR PANCREAS 08/28/2013 @PREPARATION CADAVERIC PANCREAS, STANDARD performed by Iraj Keller MD at [facility] MAIN OR ??? PRO UNLISTED PROCEDURE, MUSCULOSKELETAL SYSTEM, GENERAL 10 years carpel tunnel ??? PRO UPPER GI ENDOSCOPY, BIOPSY 12/31/2011 UPPER GASTROINTESTINAL ENDOSCOPY,WITH BIOPSY SINGLE OR MULTIPLE performed by MAURICIO BHAKTA at [facility] ENDOSCOPY ??? PRO UPPER GI ENDOSCOPY, BIOPSY N/A 08/15/2015 EGD WITH BIOPSY performed by Mauricio Bhakta MD at [facility] ENDOSCOPY ??? SHOULDER SURGERY ??? UPPER GI ENDOSCOPY, EXAM 12/31/2011 UPPER GI ENDOSCOPY performed by MAURICIO BHAKTA at [facility] ENDOSCOPY ALLERGIES: Lisinopril, Esomeprazole, Nexium [esomeprazole magnesium], Omeprazole, Prilosec [omeprazole magnesium], Reglan [metoclopramide hcl], and Simvastatin MEDICATIONS: No current facility-administered medications on file prior to encounter. Current Outpatient Medications on File Prior to Encounter Medication Sig Dispense Refill ??? betamethasone dipropionate (DIPROLENE) 0.05 % Cream ??? 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 The patient complains of low back pain [...] Fellow [facility] [address] [address] [email or web address] CC: Anna Mullen MD [address] [place] [address] Associated attestation - Oracio Alejandra MD - [...] Routine documented in this encounter Care Teams Pulmonary Function Technician Relationship Specialty Start Date End Date Anna Mullen MD PCP - General 12/03/10 [address] [place] [address] documented as of this encounter
--- OUTSIDE RECORDS SUMMARY | 2022-04-04 00:43 | XMS_ITS | Encounter Summary ---
:1965 Author Organization [facility] [place] [address] Care Team Providers Name Role Phone Anna [...] Expiration Date Visits Requ ested Visits Authorized [id number] 1 1 Encounter Details Date Type Department Care Team Description 07/09/2020 Ancillary Procedure Pain Management Bruce Tran usa, MD Pain [facility] [place] [address] [place] [address] [phone] Social History Tobacco Use Types Packs/Day Years [...] Organization Address City/State/ZIP Code Phon e Number [place], [place] documented in this encounter Visit Diagnoses Diagnosis Pain Generalized pain documented in this encounter Care Teams Ui Architect Relationship Specialty Start Date End Date Anna Mullen MD PCP - General 12/03/10 [address] [place] [address] documented as of this encounter
--- OUTSIDE RECORDS SUMMARY | 2022-04-04 00:43 | XMS_ITS | Encounter Summary ---
:1965 Author Organization [facility] [place] [address] Care Team Providers Name Role Phone Anna Mullen MD Primary Care Provider Reason for Visit Reason Comments Medication Refill Encounter Details Date Type Department Care Team Description 06/21/2020 Refill Solid Organ Transplant at [facility] [place] [address] [place] [address] [phone] (Wo rk) Social History Tobacco Use Types [...] on filedocumented in this encounter Care Teams Rock Cutter Relationship Specialty Start Date End Date Anna Mullen MD PCP - General 12/03/10 [address] [place] [address] documented as of this encounter
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
--- OUTSIDE RECORDS SUMMARY | 2022-04-04 00:43 | XMS_ITS | Encounter Summary ---
:1965 Author Organization [facility] [place] [address] Care Team Providers Name Role Phone Anna Mullen MD Primary Care Provider Reason for Visit Reason Onset Date Comments Medication Refill 05/31/2020 Encounter Details Date Type Department Care Team Description 05/31/2020 Refill Solid Organ Transplant at Eriberto Emery MD [facility] Unique pham [place] [address] [place] [address] [phone] (Wo rk) Social History Tobacco Use Types [...] on filedocumented in this encounter Care Teams Binder And Wrapper Packer Relationship Specialty Start Date End Date Anna Mullen MD PCP - General 12/03/10 [address] [place] [address] documented as of this encounter
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
--- OUTSIDE RECORDS SUMMARY | 2022-04-04 00:43 | XMS_ITS | Encounter Summary ---
:1965 Author Organization [facility] [place] [address] Care Team Providers Name Role Phone Anna [...] Expiration Date Visits Requ ested Visits Authorized [id number] 1 1 Encounter Details Date Type Department Care Team Description 08/15/2020 Hospital Encounter Pain Management Oracio Alejandra, Inter vertebral disc Tiffani Hall MD disorder with [facility] MEDICAL radiculopathy of [facility] lumbar [place] [address] [phone] Social History Tobacco Use Types Packs/Day Years [...] TAKE 1 TABLET BY 0 07/18 n ([place]) 10-325 mg MOUTH TWICE DAILY Tablet NEEDED [...] DIAGNOSTIC performed by Anna Rapp MD at [facility] ENDOSCOPY ??? PRO TRANSPLANT ALLOGRAFT PANCREAS 08/28/2013 @PANCREATIC TRANSPLANT performed by Iraj Keller MD at [facility] MAIN OR ??? PRO TRANSPLANT, PREP DONOR PANCREAS 08/28/2013 @PREPARATION CADAVERIC PANCREAS, STANDARD performed by Iraj Keller MD at [facility] MAIN OR ??? PRO UNLISTED PROCEDURE, MUSCULOSKELETAL SYSTEM, GENERAL 10 years carpel tunnel ??? PRO UPPER GI ENDOSCOPY, BIOPSY 12/31/2011 UPPER GASTROINTESTINAL ENDOSCOPY,WITH BIOPSY SINGLE OR MULTIPLE performed by MAURICIO BHAKTA at [facility] ENDOSCOPY ??? PRO UPPER GI ENDOSCOPY, BIOPSY N/A 08/15/2015 EGD WITH BIOPSY performed by Mauricio Bhakta MD at [facility] ENDOSCOPY ??? SHOULDER SURGERY ??? UPPER GI ENDOSCOPY, EXAM 12/31/2011 UPPER GI ENDOSCOPY performed by MAURICIO BHAKTA at [facility] ALLERGIES: Lisinopril, Esomeprazole, Nexium [esomeprazole magnesium], Omeprazole, Prilosec [omeprazole magnesium], Reglan [metoclopramide hcl], and Simvastatin MEDICATIONS: No current facility-administered medications on file prior to encounter. Current Outpatient Medications on File Prior to Encounter Medication Sig Dispense Refill ??? betamethasone dipropionate (DIPROLENE) 0.05 % Cream ??? 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 The patient complains of low back pain [...] Fellow [facility] [address] [address] [email or web address] CC: Anna Mullen MD [address] [place] [address] Associated attestation - Oracio Alejandra MD - [...] Routine documented in this encounter Care Teams Sourcing Specialist Relationship Specialty Start Date End Date Anna Mullen MD PCP - General 12/03/10 [address] [place] [address] documented as of this encounter
--- OUTSIDE RECORDS SUMMARY | 2022-04-04 00:43 | XMS_ITS | Encounter Summary ---
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; [facility] SOB (shortness of breath); [facility] Encounter for long-term (current) [place] [address] Social History Tobacco Use Types [...] with reflex Culture (05/21/2020 2:09 PM EDT) [facility] Method Time Signature Glucose UA Negative Negative [facility] mg/dL [facility] Protein UA Negative Negative [facility] mg/dL [facility] Bilirubin UA Negative Negative [facility] mg/dL [facility] Comment: Clinical correlation required for [...] HOSPITAL LAB[facility]ORY Blood UA Negative Negative mg/dL [facility] Ketones UA Negative Negative mg/dL [facility] Nitrite UA Negative Negative [facility] Leukocytes UA Negative Negative [facility] LABORATORY Appearance UA Clear Clear [facility] Spec [place] UA 1.007 1.006 - 1.030 [facility] Color UA Yellow Yellow [facility] Culture Reflexed No [facility] Specimen (Source) Anatomical Collection Method Collection Time Re ceived Time Location / / Volume Laterality Urine specimen 05/21/2020 2:09 05/21/2020 2:14 obtained by clean PM EDT PM EDT catch procedure (specimen) Resulting Agency Comment Spec In Lab Eriberto Melgar MD URINE ORDERABLES Performing Organization Address City/State/[place] [address] Differential, Automated (05/21/2020 1:49 PM EDT) P athologist Signature Neutrophils % 36.4 % [facility] Neutr Abs (ANC) 2.21 1.70 - [facility] 6.10 [facility] x10(3)/[facility] LABORATORY Lymphocytes % 53.1 % [facility] Lymphocytes Abs 3.2 0.9 - 3.2 [facility] x10(3)/[facility] LABORATORY Monocytes % 7.2 % [facility] Monocyte Abs 0.4 0.3 - 0.9 [facility] x10(3)/[facility] LABORATORY Eosinophils % 2.5 % [facility] Eosinophils Abs 0.2 0.0 - 0.4 [facility] x10(3)/[facility] LABORATORY Basophils % 0.5 % [facility] Basophils Abs 0.0 0.0 - 0.1 [facility] x10(3)/[facility] LABORATORY Immature Gran % 0.30 % [facility] Comment: Immature granulocytes(IG's)percentage an d absolute count will include metamyelocytes, myelocytes, and promyelo cytes. Blood smears from CBCs yielding IG's will be scanned manually for concor dance. If this scan disagrees with the automated IG or if promyelocytes are not ed, a manual differential will be performed. Kym Gran Abs 0.02 0.00 - 0.04 x10(3)/[facility] Specimen Anatomical Collection Method Collection Time Receive d Time (Source) Location / / Volume Laterality Blood specimen 05/21/2020 1:49 PM 020 2:04 (specimen) EDT PM EDT Resulting Agency Comment Spec In Lab Eriberto Melgar MD HEMATOLOGY ORDERABLES Performing Organization Address City/State/[place] [address] (ABNORMAL) Hemogram (05/21/2020 1:49 PM EDT) Analysis Performed At Patho logist Time Signature WBC 6.1 4.0 - 9.5 [facility] x10(3)/[facility] LABORATORY RBC 4.40 (L) 4.58 - [facility] 5.54 [facility] x10(6)/[facility] LABORATORY Hemoglobin 13.5 (L) 13.7 - [facility] 16.[facility] gm/dL [facility] Hematocrit 39.5 (L) 40.5 - [facility] 48.5 % [facility] MCV 89.8 82.9 - [facility] 93.1 fL [facility] MCH 30.7 27.5 - [facility] 32.1 pg [facility] MCHC 34.2 32.0 - [facility] 35.7 gm/dL [facility] Platelets 221 145 - 357 [facility] x10(3)/[facility] LABORATORY RDWSD 40.1 36.0 - [facility] 45.0 [facility] LABORATORY RDWCV 12.2 11.4 - [facility] 13.8 % [facility] MPV 10.1 7.6 - 12.9 [facility] LABOR[facility]ORY nRBC % Auto 0.0 % [facility] nRBC Abs Auto 0.000 0.000 - [facility] 0.000 [facility] x10(3)/[facility] LABORATORY Specimen Anatomical Collection Method Collection Time Receive d Time (Source) Location / / Volume Laterality Blood specimen 05/21/2020 1:49 PM 020 2:04 (specimen) EDT PM EDT Resulting Agency Comment Spec In Lab Eriberto Melgar MD HEMATOLOGY ORDERABLES Performing Organization Address City/State/[place] [address] Hemoglobin A1c (05/21/2020 1:49 PM EDT) athologist Signature Hemoglobin A1C 5.0 4.3 - 5.6 [facility] [...] Mellitus, Diabetes Care 2013; 36: Suppl. 1, S67-07 Est Avg Gluc 97 mg/dL [facility] Comment: eAG equivalents for HbA1c percentages: HbA1c(%) ?eAG(mg/dL) 6.0 ?126 6.5 ?140 7.0 ?154 7.5 ?169 8.0 ?183 8.5 ?197 9.0 ?212 9.5 ?226 10.0 ? 240 Limitations: The eAG calculation has not been validated on women, individuals below 18 years old and above 70 years old, and individuals with hemoglobinopathies. Additional resources are available on [facility] ADA website. Edinson GRISSOM, aNthaniel J, Ari R, et al. ??Tr anslating the A1C assay into estimated average glucose values. ??Diabetes Care 2008:31(8):3168-9342. Specimen Anatomical Collection Method Collection Time Receive d Time (Source) Location / / Volume Laterality Blood specimen 05/21/2020 1:49 PM 020 2:04 (specimen) EDT PM EDT Resulting Agency Comment Spec In Lab Eriberto Melgar MD CHEMISTRY ORDERABLES Performing Organization Address City/State/ZIP Code Phon e Number [place] [id number] Tacrolimus level (05/21/2020 1:49 PM EDT) P athologist Signature Tacrolimus Lvl 10.3 ng/mL [facility] Comment: Trough therapeutic: ??5-15 ng/mL [...] Address City/State/[place] [address] Comprehensive metabolic panel (non-fasting) (05/21/2020 1:49 PM EDT) P athologist Signature Glucose Lvl 93 65 - 199 [facility] mg/dL [facility] Comment: Diabetes: >=200 mg/dL plus symp toms BUN 16 10 - 20 mg/dL [facility] Creatinine 1.00 0.80 - 1.50 mg/dL [facility] Sodium 137 135 - 145 mmol/L [facility] [...] estions. Chloride 101 98 - 107 mmol/L [facility] CO2 28 22 - 31 mmol/L [facility] Anion Gap 8 5 - 15 mmol/L [facility] Calcium 9.3 8.5 - 10.5 mg/dL [facility] Total Protein 7.0 6.1 - 8.0 gm/dL [facility] Albumin 4.4 3.2 - 5.2 gm/dL [facility] AST 23 0 - 39 unit/L [facility] ALT 21 0 - 55 unit/L [facility] Alk Phos 112 40 - 130 unit/L [facility] Total Bilirubin 0.7 0.2 - 1.3 mg/dL [facility] Estimated GFR 86 >=60 mL/min/1.73 m?? [facility] Comment: The eGFR was calculated using the CKD-EP I equation. As with all creatinine based estimates of kidney function, eGFR values calculated with the CKD-EPI equation are not accurate in patients wi th acute kidney failure, extremes of body mass or the acutely ill. http://[employer]/[facility] MUSKOGEEnkf eGFR 100 >=60 mL/min/1.73 m?? [facility] Comment: The eGFR was calculated using the CKD-EP I equation. As with all creatinine based estimates of kidney function, eGFR values calculated with the CKD-EPI equation are not accurate in patients wi th acute kidney failure, extremes of body mass or the acutely ill. http://[employer]/[facility] MUSKOGEEnkf Specimen Anatomical Collection Method Collection Time Receive d Time (Source) Location / / Volume Laterality Blood specimen 05/21/2020 1:49 PM 020 2:04 (specimen) EDT PM EDT Resulting Agency Comment Spec In Lab Eriberto Melgar MD CHEMISTRY ORDERABLES Performing Organization Address City/[facility]/ZIP Code Phon e Number [address] Lipase (05/21/2020 1:49 PM EDT) P athologist Signature Lipase 40 0 - 60 [facility] Specimen Anatomical Collection Method Collection Time Receive d Time (Source) Location / / Volume Laterality Blood specimen 05/21/2020 1:49 PM 020 2:04 (specimen) EDT PM EDT Resulting Agency Comment Spec In Lab Eriberto Melgar MD CHEMISTRY ORDERABLES Performing Organization Address City/State/ZIP Code Phon e Number [address] Amylase (05/21/2020 1:49 PM EDT) P athologist Signature Amylase 70 28 - 100 [facility] LABORATORY Specimen Anatomical Collection Method Collection Time Receive d Time (Source) Location / / Volume Laterality Blood specimen 05/21/2020 1:49 PM 020 2:04 (specimen) EDT PM EDT Resulting Agency Comment Spec In Lab Eriberto Melgar MD CHEMISTRY ORDERABLES Performing Organization Address City/[facility]/[place] [address] [facility] [address] Uric acid (05/21/2020 1:49 PM EDT) athologist Signature Uric Acid 6.3 3.5 - 8.5 [facility] mg/dL [facility] Specimen Anatomical Collection Method Collection Time Receive d Time (Source) Location / / Volume Laterality Blood specimen 05/21/2020 1:49 PM 020 2:04 (specimen) EDT PM EDT Resulting Agency Comment Spec In Lab Eriberto Melgar MD CHEMISTRY ORDERABLES Performing Organization Address City/State/[place] [address] [facility] [address] Drive Cholesterol, total (05/21/2020 1:49 PM EDT) athologist Signature Chol, Total 121 mg/dL [facility] Comment: Lower Risk: <200 mg/dL Average Risk: 200-239 mg/dL Higher Risk: >fg=691 mg/dL Lipid Interpretation See Note [facility] Comment: Lipid management should be guided by a p atient? s ASCVD risk, goals and preferences. ACC/AHA Guidelines recommend high intens ity statin if clinical ASCVD or LDL greater than or equal to 190 mg/dL. http://Note.com/BXT-FJO-Dxaznibpz Adults aged 40-75 with LDL 70-189 mg/dL should have their 10 year ASCVD risk estimated with the ACC/AHA ASCVD risk es timator http://tools.acc.org/DPZTV-Rtpb-Zmstgpka r/ Statin should be discussed if risk [...] MD CHEMISTRY ORDERABLES Performing Organization Address City/[facility]/ZIP Code Phon e Number [address] Phosphorus (05/21/2020 1:49 PM EDT) P athologist Signature Phosphorus 3.4 2.5 - 4.5 [facility] mg/dL [facility] Specimen Anatomical Collection Method Collection Time Receive d Time (Source) Location / / Volume Laterality Blood specimen 05/21/2020 1:49 PM 020 2:04 (specimen) EDT PM EDT Resulting Agency Comment Spec In Lab Eriberto Melgar MD CHEMISTRY ORDERABLES Performing Organization Address City/[facility]/ZIP Code Phon e Number [address] Magnesium (05/21/2020 1:49 PM EDT) P athologist Signature Magnesium 0.70 0.69 - 1.07 [facility] mmol/L [facility] Specimen Anatomical Collection Method Collection Time Receive d Time (Source) Location / / Volume Laterality Blood specimen 05/21/2020 1:49 PM 020 2:04 (specimen) EDT PM EDT Resulting Agency Comment Spec In Lab Eriberto Melgar MD CHEMISTRY ORDERABLES Performing Organization Address City/[facility]/ZIP Code Phon e Number [address] Reticulocyte Count (05/21/2020 1:49 PM EDT) P athologist Signature Retic Ct % 1.4 0.7 - 2.6 [facility]OR[facility]ORY Retic Ct Abs 0.060 0.030 - [facility] 0.120 [facility] x10(6)/[facility] LABORATORY Immature Retic% 5.0 0.0 - 15.6 [facility] Reticulated Hgb 33.9 31.3 - [facility] 40.2 pg [facility] Specimen Anatomical Collection Method Collection Time Receive d Time (Source) Location / / Volume Laterality Blood specimen 05/21/2020 1:49 PM 020 2:04 (specimen) EDT PM EDT Resulting Agency Comment Spec In Lab Eriberto Melgar MD HEMATOLOGY ORDERABLES Performing Organization Address City/State/[place] [address] documented in this encounter Visit Diagnoses Diagnosis 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
--- OUTSIDE RECORDS SUMMARY | 2022-04-04 00:43 | XMS_ITS | Encounter Summary ---
:1965 Author Organization [facility] Address [facility] [place] [address] Care Team Providers Name Role Phone Anna [...] Expiration Date Visits Requ ested Visits Authorized [id number] 1 1 Encounter Details Date Type Department Care Team Description 07/09/2020 Surgery Pain Management Oracio Tran MD INJECTION, ANESTHETIC [facility] AGE NT AND/OR STEROID, [facility] TRANSFTONIAMINGEORGINA EPIDURAL, [facility] PAIN CLINIC LUMBAR OR SACRAL, [place] [address] LEVEL (WRVU 1.9) [place] [address] [phone] Social History Tobacco Use Types Packs/Day Years [...] OR MULTIPLE performed by MAURICIO BHAKTA at [facility] ENDOSCOPY ??? PRO UPPER GI ENDOSCOPY, BIOPSY N/A 08/15/2015 EGD WITH BIOPSY performed by Mauricio Bhakta MD at [facility] ENDOSCOPY ??? SHOULDER SURGERY ??? UPPER GI ENDOSCOPY, EXAM 12/31/2011 UPPER GI ENDOSCOPY performed by MAURICIO BHAKTA at [facility] ENDOSCOPY There are no medical history contraindications [...] 1 HOUR PRIOR TO DENTAL APPOINTMENT ??? 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 Chelsie Doe MD Pain Management Fellow [address] [address] / [facility] documented in this encounter Miscellaneous Notes Op Note - Chelsie Doe MD - 07/09/2020 9:57 AM EST Pain Management Operative Note Patient Name: Richard Hsu : [id number] MR#: [id number] Case Date: 07/09/2020 Surgeon: Surgeon(s) and Role: [...] epidural steroid injection by Benjy Yang MD [facility] [place] [address]. The patient complains of low back pain [...] Chelsie Doe MD CC: Benjy Yang MD [facility] [place] [address] Associated attestation - Oracio Alejandra MD - [...] Routine documented in this encounter Care Teams Industrial Hygenist Relationship Specialty Start Date End Date Anna Mullen MD PCP - General 12/03/10 [address] [place] [address] documented as of this encounter
--- OUTSIDE RECORDS SUMMARY | 2022-04-04 00:43 | XMS_ITS | Encounter Summary ---
:1965 Author Organization [facility] [place] [address] Care Team Providers Name Role Phone Anna Mullen MD Primary Care Provider Reason for Referral Consultation (Routine) - Closed Specialty Diagnoses / Procedures Referred By Contact Refer red To Contact Pain and Spine Center Diagnoses Intervertebral disc disorder with radiculopathy of lumbar region *waiting for anticoag* Benjy Yang MD [facility] Pain And [facility] Spine [address] [facility] SPINE [address] [address] Phone: Fax: Referral ID Status Reason Start Date Expiration Date Visits V isits Requested Authorized [id number] Closed Consult, 07/30/2020 07/30/2021 1 1 Test & Treat Reason for Visit Reason Comments Follow-up Encounter Details Date Type Department Care Team Description 07/30/2020 Office Visit Pain and Spine Benjy Yang, Intervert ebral disc Center at [facility] MD disorder with [facility] radiculop athy of lumbar Drive CENTER [facility] [place], [place] SPINE CENTER [address] [place] [address] [phone] Social History Tobacco Use Types Packs/Day Years [...] Jordan RN - 07/30/2020 4:00 PM EST [facility] Repeat/Subsequent Procedure Risk [...] by [facility] medical office scheduler once permission has been obtained from his [...] High Risk. Disposition: Took patient out to Welder/Fitter to arrange and schedule procedure. Patient's questions [...] unspecified documented in this encounter Care Teams Hedis Analyst Relationship Specialty Start Date End Date Anna Mullen MD PCP - General 12/03/10 [address] [place] [address] documented as of this encounter
--- OUTSIDE RECORDS SUMMARY | 2022-04-04 00:43 | XMS_ITS | Encounter Summary ---
:1965 Author Organization [facility] [place] [address] Care Team Providers Name Role Phone Anna Mullen MD Primary Care Provider Reason for Visit Reason Onset Date Comments Medication Refill 07/24/2020 Encounter Details Date Type Department Care Team Description 07/24/2020 Refill Neurology at [facility] Geoffrey Martinez MD [facility] [place] [address] NEUROLOGY DEPT. [phone] [place], [place] [address] (Wo rk) Social History Tobacco [...] on filedocumented in this encounter Care Teams People Manager Relationship Specialty Start Date End Date Anna Mullen MD PCP - General 12/03/10 [address] [place], [place] [address] documented as of this encounter
--- OUTSIDE RECORDS SUMMARY | 2022-04-04 00:43 | XMS_ITS | Encounter Summary ---
:1965 Author Organization [facility] [place] [address] Care Team Providers Name Role Phone Anna Mullen MD Primary Care Provider Encounter Details Date Type Department Care Team Description 07/30/2020 Notes Only Pain and Spine Cente r at [facility] [place] [address] Social History Tobacco Use Types Packs/Day [...] on filedocumented in this encounter Care Teams Teletypist Relationship Specialty Start Date End Date Anna Mullen MD PCP - General 12/03/10 [address] [place] [address] documented as of this encounter
--- OUTSIDE RECORDS SUMMARY | 2022-04-04 00:43 | XMS_ITS | Encounter Summary ---
:1965 Author Organization [facility] [place] [address] Care Team Providers Name Role Phone Anna Mullen MD Primary Care Provider Reason for Visit Reason Onset Date Comments Medication Refill 05/31/2020 Encounter Details Date Type Department Care Team Description 05/31/2020 Refill Solid Organ Transplant at Eriberto Emery MD [facility] Unique [place] [address] [place] [address] [phone] (Wo rk) Social History Tobacco Use Types [...] on filedocumented in this encounter Care Teams Project Management Analyst Relationship Specialty Start Date End Date Anna Mullen MD PCP - General 12/03/10 [address] [place], [place] [address] documented as of this encounter
--- OUTSIDE RECORDS SUMMARY | 2022-04-04 00:43 | XMS_ITS | Encounter Summary ---
:1965 Author Organization [facility] [place] [address] Care Team Providers Name Role Phone Anna Mullen MD Primary Care Provider Encounter Details Date Type Department Care Team Description 02/21/2020 Telephone Solid Organ Transplant at [facility] [place] [address] Social History Tobacco Use Types Packs/Day [...] on filedocumented in this encounter Care Teams Shovel Mechanic Relationship Specialty Start Date End Date Anna Mullen MD PCP - General 12/03/10 [address] [place] [address] documented as of this encounter
--- OUTSIDE RECORDS SUMMARY | 2022-04-04 00:43 | XMS_ITS | Encounter Summary ---
:1965 Author Organization [facility] [place] [address] Care Team Providers Name Role Phone Anna Mullen MD Primary Care Provider Encounter Details Date Type Department Care Team Description 08/03/2020 Telephone Pain and Spine Mitra peña at [facility] [place] [address] Social History Tobacco Use Types Packs/Day [...] filedocumented in this encounter Care Teams Mechanical Engineer Relationship Specialty Start Date End Date Anna Mullen MD PCP - General 12/03/10 [address] [place] [address] documented as of this encounter
--- OUTSIDE RECORDS SUMMARY | 2022-04-04 00:43 | XMS_ITS | Encounter Summary ---
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; [facility] Encounter for long-term (cur rent) use of other medications; [facility] SOB (shor tness of breath) [place] [address] Social History Tobacco Use Types [...] with reflex Culture (01/25/2021 8:33 AM EDT) [facility] Method Time Signature Glucose UA Negative Negative [facility] mg/dL [facility] Protein UA Negative Negative [facility] mg/dL [facility] Bilirubin UA Negative Negative [facility] mg/dL [facility] Comment: Clinical correlation required for positi ve Urine Bilirubin results as false positive may occur with some drugs and d rug related products. If a false positive is suspected a serum total bili sinha should be considered if clinically indicated. Urobilinogen UA Normal Normal mg/dL [facility] pH UA 7.0 5.0 - 8.0 [facility] Blood UA Negative Negative mg/dL [facility] Ketones UA Negative Negative mg/dL [facility] Nitrite UA Negative Negative [facility] Leukocytes UA Negative Negative [facility] LABORATORY Appearance UA Clear Clear [facility] Spec Tiff UA 1.010 1.006 - 1.030 [facility] Color UA Yellow Yellow [facility] Culture Reflexed No [facility] Specimen Anatomical Collection Method Collection Time Receive d Time (Source) Location / / Volume Laterality Clean Catch 01/25/2021 8:33 AM 8:39 Urine EDT AM EDT Resulting Agency Comment Spec In Lab Eriberto Melgar MD URINE ORDERABLES Performing Organization Address City/State/Z[place] [address] (ABNORMAL) Differential, Automated (01/25/2021 8:24 AM EDT) [facility] Method Time Signature Neutrophils % 43.8 % [facility] Neutr Abs (ANC) 3.31 1.70 - [facility] 6.10 [facility] x10(3)/[facility] LABORATORY Lymphocytes % 43.5 % [facility] Lymphocytes Abs 3.3 (H) 0.9 - 3.2 [facility] x10(3)/[facility] LABORATORY Monocytes % 8.6 % [facility] Monocyte Abs 0.6 0.3 - 0.9 [facility] x10(3)/[facility] LABORATORY Eosinophils % 3.1 % [facility] Eosinophils Abs 0.2 0.0 - 0.4 [facility] x10(3)/[facility] LABORATORY Basophils % 0.7 % [facility] Basophils Abs 0.0 0.0 - 0.1 [facility] x10(3)/[facility] LABORATORY Immature Gran % 0.30 % [facility] Comment: Immature granulocytes(IG's)percentage an d absolute count will include metamyelocytes, myelocytes, and promyelo cytes. Blood smears from CBCs yielding IG's will be scanned manually for concor dance. If this scan disagrees with the automated IG or if promyelocytes are not ed, a manual differential will be performed. Kym Gran Abs 0.02 0.00 - 0.04 x10(3)/[facility] Specimen Anatomical Collection Method Collection Time Receive d Time (Source) Location / / Volume Laterality Blood 01/25/2021 8:24 AM 8:40 EDT AM EDT Resulting Agency Comment Spec In Lab Eriberto Melgar MD HEMATOLOGY ORDERABLES Performing Organization Address City/State/ZIP [place] [address] Hemogram (01/25/2021 8:24 AM EDT) P athologist Signature WBC 7.5 4.0 - 9.5 [facility] x10(3)/[facility] LABORATORY RBC 4.97 4.58 - [facility] 5.54 [facility] x10(6)/[facility] LABORATORY Hemoglobin 15.0 13.7 - [facility] 16.5 gm/dL [facility] Hematocrit 43.7 40.5 - [facility] 48.5 % [facility] MCV 87.9 82.9 - [facility] 93.1 [facility] LABORATORY MCH 30.2 27.5 - [facility] 32.1 pg [facility] MCHC 34.3 32.0 - [facility] 35.7 gm/dL [facility] Platelets 220 145 - 357 [facility] x10(3)/[facility] LABORATORY RDWSD 40.3 36.0 - [facility] [place] 45.0 [facility] LABORATORY RDWCV 12.6 11.4 - [facility] 13.8 % [facility] MPV 10.3 7.6 - 12.9 [facility] LABORATORY nRBC % Auto 0.0 % [facility] nRBC Abs Auto 0.000 0.000 - [facility] 0.000 [facility] x10(3)/[facility] LABORATORY Specimen Anatomical Collection Method Collection Time Receive d Time (Source) Location / / Volume Laterality Blood 01/25/2021 8:24 AM 1 8:40 EDT AM EDT Resulting Agency Comment Spec In Lab Eriberto Melgar MD HEMATOLOGY ORDERABLES Performing Organization Address City/[facility]/[place] [address] Tacrolimus level (01/25/2021 8:24 AM EDT) P athologist Signature Tacrolimus Lvl 10.4 ng/mL [facility] Comment: Please be advised that [...] Address City/[facility]/[place] [address] Comprehensive metabolic panel (non-fasting) (01/25/2021 8:24 AM EDT) P athologist Signature Glucose Lvl 100 65 - 199 [facility] mg/dL [facility] Comment: Diabetes: >=200 mg/dL plus symp toms BUN 15 10 - 20 mg/dL [facility] Creatinine 1.07 0.80 - 1.50 mg/dL [facility] Sodium 136 135 - 145 mmol/L [facility] Potassium 4.4 3.5 - 5.0 mmol/L [facility] Comment: Please note: ??Patients with WBC >100,00 0 may have falsely elevated Potassium levels. ??For accurate Potassium quantif ication in these patients send serum separator tube (gold top) for subsequent determinations. ??Contact the Clinical Chemistry Laboratory if there are any qu estions. Chloride 99 98 - 107 mmol/L [facility] CO2 28 22 - 31 mmol/L [facility] Anion Gap 9 5 - 15 mmol/L [facility] Calcium 10.0 8.5 - 10.5 mg/dL [facility] Total Protein 7.7 6.1 - 8.0 gm/dL [facility] Albumin 4.8 3.2 - 5.2 gm/dL [facility] AST 28 0 - 39 unit/L [facility] ALT 24 0 - 55 unit/L [facility] Alk Phos 122 40 - 130 unit/L [facility] Total Bilirubin 0.7 0.2 - 1.3 mg/dL [facility] Estimated GFR 79 >=60 mL/min/1.73 m?? [facility] [...] Address City/[facility]/ZIP Code Phon e Number [address] Lipase (01/25/2021 8:24 AM EDT) P athologist Signature Lipase 26 0 - 60 [facility] unit/L [facility] Specimen Anatomical Collection Method Collection Time Receive d Time (Source) Location / / Volume Laterality Blood 01/25/2021 8:24 AM 8:40 EDT AM EDT Resulting Agency Comment Spec In Lab Eriberto Melgar MD CHEMISTRY ORDERABLES Performing Organization Address City/[facility]/ZIP Code Phon e Number [address] Amylase (01/25/2021 8:24 AM EDT) P athologist Signature Amylase 57 28 - 100 [facility] unit/L [facility] Specimen Anatomical Collection Method Collection Time Receive d Time (Source) Location / / Volume Laterality Blood 01/25/2021 8:24 AM 8:40 EDT AM EDT Resulting Agency Comment Spec In Lab Eriberto Melgar MD CHEMISTRY ORDERABLES Performing Organization Address City/[facility]/[place] [address] Uric acid (01/25/2021 8:24 AM EDT) P athologist Signature Uric Acid 5.5 3.5 - 8.5 [facility] Specimen Anatomical Collection Method Collection Time Receive d Time (Source) Location / / Volume Laterality Blood 01/25/2021 8:24 AM 8:40 EDT AM EDT Resulting Agency Comment Spec In Lab Eriberto Melgar MD CHEMISTRY ORDERABLES Performing Organization Address City/State/[place] [address] Cholesterol, total (01/25/2021 8:24 AM EDT) athologist Signature Chol, Total 128 mg/dL [facility] Comment: Lower Risk: <200 mg/dL Average Risk: 200-239 mg/dL Higher Risk: >ps=291 mg/dL Lipid Interpretation See Note [facility]3] LABORATORY Comment: Lipid management should be guided by a p atient? s ASCVD risk, goals and preferences. ACC/AHA Guidelines recommend high intens ity statin if clinical ASCVD or LDL greater than or equal to 190 mg/dL. http://Treatful/SBJ-WJY-Cdthaidph Adults aged 40-75 with LDL 70-189 mg/dL should have their 10 year ASCVD risk estimated with the ACC/AHA ASCVD risk es timator http://tools.acc.org/XUQQB-Ciha-Mgrzjpet r/ Statin should be discussed if risk [...] Address City/[facility]/[place] [address] Phosphorus (01/25/2021 8:24 AM EDT) athologist Signature Phosphorus 3.7 2.5 - 4.5 [facility] mg/dL [facility] Specimen Anatomical Collection Method Collection Time Receive d Time (Source) Location / / Volume Laterality Blood 01/25/2021 8:24 AM 8:40 EDT AM EDT Resulting Agency Comment Spec In Lab Eriberto Melgar MD CHEMISTRY ORDERABLES Performing Organization Address City/[facility]/ZIP Code Phon e Number [address] Magnesium (01/25/2021 8:24 AM EDT) P athologist Signature Magnesium 0.71 0.69 - 1.07 [facility] mmol/L [facility] Specimen Anatomical Collection Method Collection Time Receive d Time (Source) Location / / Volume Laterality Blood 01/25/2021 8:24 AM 8:40 EDT AM EDT Resulting Agency Comment Spec In Lab Eriberto Melgar MD CHEMISTRY ORDERABLES Performing Organization Address City/[facility] [place] [address] Reticulocyte Count (01/25/2021 8:24 AM EDT) P athologist Signature Retic Ct % 1.3 0.7 - 2.6 [facility] LABORATORY Retic Ct Abs 0.070 0.030 - [facility] 0.120 [facility] x10(6)/[facility] LABORATORY Immature Retic% 10.1 0.0 - 15.6 [facility] Reticulated Hgb 33.3 31.3 - [facility] 40.2 pg [facility] Specimen Anatomical Collection Method Collection Time Receive d Time (Source) Location / / Volume Laterality Blood 01/25/2021 8:24 AM 8:40 EDT AM EDT Resulting Agency Comment Spec In Lab Eriberto Melgar MD HEMATOLOGY ORDERABLES Performing Organization Address City/[facility]/ZIP Code Phon e Number [address] COVID-19 El Antibody (01/25/2021 8:24 AM EDT) Analysis Performed At Patho logist Time Signature SARS-CoV-[address] [facility] LABORATORY Comment: This is a total antibody [...] be due to a past infection with qnr-GLPY-YvD-2 coronavirus strains, such as coronavirus HKU1, NL63, OC43, or 229E. This test was performed using the Elecsy s Mdlg-YYXU-HzU-2 S total antibody assay on the Nora Jessica e801 analyzer. This serology test is available following FDA Emergency Use Authorizatio n, however it has not been reviewed by the FDA, nor is it FDA cleared or approv ed. The performance characteristics of this test were determined by the [facility] ent of Pathology and Laboratory Medicine at [facility]. The laboratory is certified under the Clinical [...] fact sheets at the following FDA website: https://www.fda.gov/medical-devices/qgahmmnfcon-xzxmnfj-2359-dhwjd-86-otktnskez- zrz-ajsbtrovucmenk-hbukdyz-devices/wcrxh-xkxkmigisso-dopp Specimen Anatomical Collection Method Collection Time Receive d Time (Source) Location / / Volume Laterality Blood 01/25/2021 8:24 AM 8:40 EDT AM EDT Eriberto Melgar MD CHEMISTRY ORDERABLES Performing Organization Address City/State/ZIP [place] [address] Hemoglobin A1c (01/25/2021 8:24 AM EDT) athologist Signature Hemoglobin A1C 5.4 4.3 - 5.6 [facility] Comment: Reference Range: 4.3 [...] Mellitus, Diabetes Care 2013; 36: Suppl. 1, S67-26 Est Avg Gluc 107 mg/dL [facility] Comment: eAG [...] into estimated average glucose values. ??Diabetes Care 2008:31(8):5548-8638. 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
--- OUTSIDE RECORDS SUMMARY | 2022-04-04 00:43 | XMS_ITS | Encounter Summary ---
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 PRO TRANSPLANT ALLOGRAFT PANCREAS 08/28/2013 @PANCREATIC TRANSPLANT performed by Iraj Keller MD at [facility] MAIN OR ??? PRO TRANSPLANT, PREP DONOR PANCREAS 08/28/2013 @PREPARATION CADAVERIC PANCREAS, STANDARD performed by Iraj Keller MD at [facility] MAIN OR ??? PRO UNLISTED PROCEDURE, MUSCULOSKELETAL SYSTEM, GENERAL 10 years carpel tunnel ??? PRO UPPER GI ENDOSCOPY, BIOPSY 12/31/2011 UPPER GASTROINTESTINAL ENDOSCOPY,WITH BIOPSY SINGLE OR MULTIPLE performed by CLAYTON BHAKTA at [facility] ENDOSCOPY ??? PRO UPPER GI ENDOSCOPY, BIOPSY N/A 08/15/2015 EGD WITH BIOPSY performed by Clayton Bhakta MD at [facility] ENDOSCOPY ??? SHOULDER SURGERY ??? UPPER GI ENDOSCOPY, EXAM 12/31/2011 UPPER GI ENDOSCOPY performed by CLAYTON BHAKTA at [facility] ENDOSCOPY Current Outpatient Medications: ??? verapamil SR [...] By report: Weight 209 lb BP 131/82, RI 67; Gen - AAO x 3 in [...] UA Latest Ref Range: Clear Clear Spec [place] UA Latest Ref Range: 1.006 - 1.030 [...] 30 minutes in direct face to face general counsel. Follow-up: 6 months Labs quarterly. 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
--- OUTSIDE RECORDS SUMMARY | 2022-04-04 00:43 | XMS_ITS | Encounter Summary ---
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; [facility] Encounter for long-term (cur rent) use of other medications; [facility] SOB (shor tness of breath) [place] [address] Social History Tobacco Use Types [...] with reflex Culture (11/01/2020 8:07 AM EST) [facility] Method Time Signature Glucose UA Negative Negative [facility] mg/dL [facility] Protein UA Negative Negative [facility] mg/dL [facility] Bilirubin UA Negative Negative [facility] mg/dL [facility] Comment: Clinical correlation required for positi ve Urine Bilirubin results as false positive may occur with some drugs and d rug related products. If a false positive is suspected a serum total bili sinha should be considered if clinically indicated. Urobilinogen UA Normal Normal mg/dL [facility] pH UA 6.0 5.0 - 8.0 [facility] Blood UA Negative Negative mg/dL [facility] Ketones UA Negative Negative mg/dL [facility] Nitrite UA Negative Negative [facility] Leukocytes UA Negative Negative [facility] LABORATORY Appearance UA Clear Clear [facility] Spec [place] UA 1.008 1.006 - 1.030 [facility] Color UA Yellow Yellow [facility] Culture Reflexed No [facility] Specimen (Source) Anatomical Collection Method Collection Time Re ceived Time Location / / Volume Laterality Urine specimen 11/01/2020 8:07 11/01/2020 8:12 obtained by clean AM EST AM EST catch procedure (specimen) Resulting Agency Comment Spec In Lab Eriberto Melgar MD URINE ORDERABLES Performing Organization Address City/State/ZIP Code Phon e Number [place] [phone]ORY [address] (ABNORMAL) Differential, Automated (11/01/2020 8:03 AM EST) [facility] Method Time Signature Neutrophils % 44.3 % [facility] Neutr Abs (ANC) 3.52 1.70 - [facility] 6.10 [facility] x10(3)/[facility] LABORATORY Lymphocytes % 42.6 % [facility] Lymphocytes Abs 3.4 (H) 0.9 - 3.2 [facility] x10(3)/[facility] LABORATORY Monocytes % 9.4 % [facility] Monocyte Abs 0.8 0.3 - 0.9 [facility] x10(3)/[facility] LABORATORY Eosinophils % 2.6 % [facility] Eosinophils Abs 0.2 0.0 - 0.4 [facility] x10(3)/[facility] LABORATORY Basophils % 0.6 % [facility] Basophils Abs 0.0 0.0 - 0.1 [facility] x10(3)/[facility] LABORATORY Immature Gran % 0.50 % [facility] Comment: Immature granulocytes(IG's)percentage an d absolute count will include metamyelocytes, myelocytes, and promyelo cytes. Blood smears from CBCs yielding IG's will be scanned manually for concor dance. If this scan disagrees with the automated IG or if promyelocytes are not ed, a manual differential will be performed. Kym Gran Abs 0.04 0.00 - 0.04 x10(3)/[facility] MAR Y [facility]OR[facility] Specimen Anatomical Collection Method Collection Time Receive d Time (Source) Location / / Volume Laterality Blood specimen 11/01/2020 8:03 AM 021 8:11 (specimen) EST AM EST Resulting Agency Comment Spec In Lab Eriberto Melgar MD HEMATOLOGY ORDERABLES Performing Organization Address City/State/ZIP Code Phon e Number [place] [phone]OSP[address] LAB[address]ORY [address] Hemogram (11/01/2020 8:03 AM EST) P athologist Signature WBC 8.0 4.0 - 9.5 [facility] x10(3)/[facility] LABORATORY RBC 4.58 4.58 - [facility] 5.54 [facility] x10(6)/[facility] LABORATORY Hemoglobin 13.7 13.7 - [facility] 16.5 gm/dL [facility] Hematocrit 40.5 40.5 - [facility] 48.5 % [facility] MCV 88.4 82.9 - [facility] 93.1 fL [facility] MCH 29.9 27.5 - [facility] 32.1 pg [facility] MCHC 33.8 32.0 - [facility] 35.7 gm/dL [facility] Platelets 207 145 - 357 [facility] x10(3)/[facility] LABORATORY RDWSD 40.3 36.0 - [facility] 45.0 [facility] LABORATORY RDWCV 12.4 11.4 - [facility] 13.8 [facility] LABORATORY MPV 10.4 7.6 - 12.9 [facility] LABORATORY nRBC % Auto 0.0 % [facility] nRBC Abs Auto 0.000 0.000 - [facility] 0.000 [facility] x10(3)/[facility] LABORATORY Specimen Anatomical Collection Method Collection Time Receive d Time (Source) Location / / Volume Laterality Blood specimen 11/01/2020 8:03 AM 8:11 (specimen) EST AM EST Resulting Agency Comment Spec In Lab Eriberto Melgar MD HEMATOLOGY ORDERABLES Performing Organization Address City/[facility]/ZIP Code Phon e Number [address] Reticulocyte Count (11/01/2020 8:03 AM EST) P athologist Signature Retic Ct % 1.2 0.7 - 2.6 [facility] LABORATORY Retic Ct Abs 0.060 0.030 - [facility] [place] 0.120 [facility] x10(6)/[facility] LABORATORY Immature Retic% 9.9 0.0 - 15.6 [facility] K [facility] LABOR[facility]ORY Reticulated Hgb 35.6 31.3 - [facility] 40.2 pg [facility] Specimen Anatomical Collection Method Collection Time Receive d Time (Source) Location / / Volume Laterality Blood specimen 11/01/2020 8:03 AM 8:11 (specimen) EST AM EST Resulting Agency Comment Spec In Lab Eriberto Melgar MD HEMATOLOGY ORDERABLES Performing Organization Address City/[facility]/ZIP Code Phon e Number [address] Magnesium (11/01/2020 8:03 AM EST) P athologist Signature Magnesium 0.69 0.69 - 1.07 [facility] mmol/L [facility] Specimen Anatomical Collection Method Collection Time Receive d Time (Source) Location / / Volume Laterality Blood specimen 11/01/2020 8:03 AM 021 8:11 (specimen) EST AM EST Resulting Agency Comment Spec In Lab Eriberto Melgar MD CHEMISTRY ORDERABLES Performing Organization Address City/State/ZIP Code Phon e Number [address] Phosphorus (11/01/2020 8:03 AM EST) P athologist Signature Phosphorus 2.6 2.5 - 4.5 [facility] mg/dL [facility] Specimen Anatomical Collection Method Collection Time Receive d Time (Source) Location / / Volume Laterality Blood specimen 11/01/2020 8:03 AM 021 8:11 (specimen) EST AM EST Resulting Agency Comment Spec In Lab Eriberto Melgar MD CHEMISTRY ORDERABLES Performing Organization Address City/[facility]/ZIP Code Phon e Number [address] Cholesterol, total (11/01/2020 8:03 AM EST) athologist Signature Chol, Total 111 mg/dL [facility] Comment: Lower Risk: <200 mg/dL Average Risk: 200-239 mg/dL Higher Risk: >nf=708 mg/dL Lipid Interpretation See Note [facility] Comment: Lipid management should be guided by a p atient? s ASCVD risk, goals and preferences. ACC/AHA Guidelines recommend high intens ity statin if clinical ASCVD or LDL greater than or equal to 190 mg/dL. http://tinyurl.com/EIP-PIP-Juplksmpk Adults aged 40-75 with LDL 70-189 mg/dL should have their 10 year ASCVD risk estimated with the ACC/AHA ASCVD risk es timator http://tools.acc.org/VNDZU-Xtgz-Petcdaiv r/ Statin should be discussed if risk [...] Melgar MD CHEMISTRY ORDERABLES Performing Organization Address City/[facility]/ZIP Code Phon e Number [address] Uric acid (11/01/2020 8:03 AM EST) P athologist Signature Uric Acid 5.3 3.5 - 8.5 [facility] mg/dL [facility] Specimen Anatomical Collection Method Collection Time Receive d Time (Source) Location / / Volume Laterality Blood specimen 11/01/2020 8:03 AM 8:11 (specimen) EST AM EST Resulting Agency Comment Spec In Lab Eriberto Melgar MD CHEMISTRY ORDERABLES Performing Organization Address City/[facility]/ZIP Code Phon e Number [address] Amylase (11/01/2020 8:03 AM EST) P athologist Signature Amylase 52 28 - 100 [facility] LABORATORY Specimen Anatomical Collection Method Collection Time Receive d Time (Source) Location / / Volume Laterality Blood specimen 11/01/2020 8:03 AM 8:11 (specimen) EST AM EST Resulting Agency Comment Spec In Lab Eriberto Melgar MD CHEMISTRY ORDERABLES Performing Organization Address City/[facility]/ZIP Code Phon e Number [address] Lipase (11/01/2020 8:03 AM EST) P athologist Signature Lipase 23 0 - 60 [facility] LABORATORY Specimen Anatomical Collection Method Collection Time Receive d Time (Source) Location / / Volume Laterality Blood specimen 11/01/2020 8:03 AM 021 8:11 (specimen) EST AM EST Resulting Agency Comment Spec In Lab Eriberto Melgar MD CHEMISTRY ORDERABLES Performing Organization Address City/State/[place] [address] (ABNORMAL) Comprehensive metabolic panel (non-fasting) (11/01/2020 8:03 AM EST) athologist Signature Glucose Lvl 102 65 - 199 [facility] mg/dL [facility] Comment: Diabetes: >=200 mg/dL plus symp toms BUN 12 10 - 20 mg/dL [facility] Creatinine 0.95 0.80 - 1.50 mg/dL [facility] Sodium 133 (L) 135 - 145 mmol/L [facility] Potassium 4.5 3.5 - 5.0 mmol/L [facility] Comment: Please note: ??Patients with WBC >100,00 0 may have falsely elevated Potassium levels. ??For accurate Potassium quantif ication in these patients send serum separator tube (gold top) for subsequent determinations. ??Contact the Clinical Chemistry Laboratory if there are any qu estions. Chloride 97 (L) 98 - 107 mmol/L [facility] CO2 28 22 - 31 mmol/L [facility] Anion Gap 8 5 - 15 mmol/L [facility] Calcium 9.3 8.5 - 10.5 mg/dL [facility] Total Protein 6.9 6.1 - 8.0 gm/dL [facility] Albumin 4.5 3.2 - 5.2 gm/dL [facility] AST 24 0 - 39 unit/L [facility] ALT 22 0 - 55 unit/L [facility] Alk Phos 113 40 - 130 unit/L [facility] Total Bilirubin 1.0 0.2 - 1.3 mg/dL [facility] Estimated GFR 91 >=60 mL/min/1.73 m?? [facility] [...] Melgar MD CHEMISTRY ORDERABLES Performing Organization Address City/[facility]/[place] [address] Tacrolimus level (11/01/2020 8:03 AM EST) P athologist Signature Tacrolimus Lvl 8.8 ng/mL [facility] Comment: Please be advised that [...] Melgar MD CHEMISTRY ORDERABLES Performing Organization Address City/[facility]/ZIP [facility] Phon e Number [address] Hemoglobin A1c (11/01/2020 8:03 AM EST) P athologist Signature Hemoglobin A1C 5.2 4.3 - 5.6 [facility] LABOR[facility]ORY [...] S67-74 Est Avg Gluc 103 mg/dL [facility] Comment: eAG equivalents for [...] into estimated average glucose values. ??Diabetes Care 2008:31(8):8946-5515. 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
--- OUTSIDE RECORDS SUMMARY | 2022-04-04 00:43 | XMS_ITS | Encounter Summary ---
:1965 Author Organization [facility] [place] [address] Care Team Providers Name Role Phone Anna Mullen MD Primary Care Provider Encounter Details Date Type Department Care Team Description 05/29/2020 Notes Only Pain and Spine Mitra peña at [facility] [place] [address] Social History Tobacco Use Types Packs/Day Years Used Date Never Smoker Smokeless Tobacco: Never Used Alcohol Use Standard Drinks/Week Comments No 0 (1 standard drink = 0.6 oz pure alcoho l) history of abuse, stopped 1996 Sex Assigned at Date Recorded Male 05/29/2021 11:28 PM EDT documented as of this encounter Progress Notes Alla Christina E - 05/29/2020 8:29 AM EDT Procedure: Left L2-L3 TFESI MRI required? yes (If yes, verify that updated MRI is in eDH) (Atlanto-Axial Joint injection, ESTEFANY; 1 year or <)(Caudal ROBIN, LESI, Thoracic ROBIN, TFESI Lumbar & Cervical; 2 years or <) Referring Provider: Are you on any blood thinners? yes (If yes, specify medication type and prescribing provider for anticoagulant hold request) Medication: Plavix and Prescribing provider: Geoffrey Martinez MD Anticoagulant Medication Therapy Protocol Guide for Procedures: [...] Prescriber n/a Are you taking any NSAIDs? no Type of NSAID: n/a Non-Steroidal Anti-Inflammatory Drug Guidelines: Medication Other Names [...] or hospitalized recently? no If yes. Why? n/a Do you have any allergies to anesthetics or steroids? no Are you diabetic? 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 Worker's Comp no Insurance: BCBS Completed by: Alla Vega Alla Christina - 05/29/2020 8:29 AM EDT [facility] Temporary Anticoagulant Hold Initial Request Patient: Richard Hsu [id number] Request for the above named patient to temporarily stop Plavix for 7 days prior to requested transforaminal injection injection/procedure has been faxed to: Dr. Martinez office. Fax number: [phone] Fax confirmation that request received at the above named doctor's office: 05/29/20 (date stamp on fax confirmation) 8:40 am (time stamp on fax confirmation) Paper documentation in [facility] Management Center Scheduling Desk. Alla Christina documented in this encounter Plan of Treatment Not on filedocumented as of this encounter Visit Diagnoses Not on filedocumented in this encounter Care Teams Frog Catcher Relationship Specialty Start Date End Date Anna Mullen MD PCP - General 12/03/10 [address] [place] [address] documented as of this encounter
--- OUTSIDE RECORDS SUMMARY | 2022-04-04 00:43 | XMS_ITS | Encounter Summary ---
:1965 Author Organization [facility] [place] [address] Care Team Providers Name Role Phone Anna Mullen MD Primary Care Provider Encounter Details Date Type Department Care Team Description 06/19/2020 Telephone [facility] Cent[facility] [place] [facility] Kristy Horta, [place] [address] Social History Tobacco Use Types Packs/Day [...] postponed. Prior to checking in at [employer], please be sure to empty your bladder. Patient confirmed understanding that if they do not follow the above instructions, their procedure is likely to be cancelled. Kristy Horta RN documented in this encounter Plan of Treatment Not on filedocumented as of this encounter Visit Diagnoses Not on filedocumented in this encounter Care Teams Loop Drier Operator Relationship Specialty Start Date End Date Anna Mullen MD PCP - General 12/03/10 [address] [place] [address] documented as of this encounter
--- OUTSIDE RECORDS SUMMARY | 2022-04-04 00:43 | XMS_ITS | Encounter Summary ---
:1965 Author Organization [facility] [place] [address] Care Team Providers Name Role Phone Anna Mullen MD Primary Care Provider Reason for Visit Reason Onset Date Comments Medication Refill 08/06/2020 Encounter Details Date Type Department Care Team Description 08/06/2020 Refill Solid Organ Transplant at Eriberto Emery MD [facility] Unique ph[place] [address] [place] [address] [phone] (Wo rk) Social History Tobacco Use Types [...] filedocumented in this encounter Care Teams Steam Plant Operator Relationship Specialty Start Date End Date Anna Mullen MD PCP - General 12/03/10 [address] [place], [place] [address] documented as of this encounter
--- OUTSIDE RECORDS SUMMARY | 2022-04-04 00:43 | XMS_ITS | Encounter Summary ---
:1965 Author Organization [facility] [place] [address] Care Team Providers Name Role Phone Anna Mullen MD Primary Care Provider Reason for Visit Reason Comments Medication Refill Encounter Details Date Type Department Care Team Description 10/10/2020 Refill Solid Organ Transplant at Eriberto Emery MD [facility] ankit [place] [address] [place] [address] [phone] (Wo rk) Social History Tobacco Use Types [...] on filedocumented in this encounter Care Teams Management Technician Relationship Specialty Start Date End Date Anna Mullen MD PCP - General 12/03/10 [address] [place], [place] [address] documented as of this encounter
--- OUTSIDE RECORDS SUMMARY | 2022-04-04 00:43 | XMS_ITS | Encounter Summary ---
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 PRO UPPER GI ENDOSCOPY, BIOPSY N/A 08/15/2015 EGD WITH BIOPSY performed by Mauricio Bhakta MD at [facility] ENDOSCOPY ??? SHOULDER SURGERY ??? UPPER GI ENDOSCOPY, EXAM 12/31/2011 UPPER GI ENDOSCOPY performed by MAURICIO BHAKTA at [facility] ENDOSCOPY There are no medical history [...] 1 HOUR PRIOR TO DENTAL APPOINTMENT ??? 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 Chelsie Doe MD Pain Management Fellow [place] [id number] / [facility] documented in this encounter Miscellaneous Notes Op Note - Chelsie Doe MD - 07/09/2020 9:57 AM EST Pain Management Operative Note Patient Name: Richard Hsu : [id number] MR#: [id number] Case Date: 07/09/2020 Surgeon: Surgeon(s) and Role: [...] epidural steroid injection by Benjy Yang MD [facility] [place] [address]. The patient complains of low back pain [...] Chelsie Doe MD CC: Benjy Yang MD [facility] [address] Associated attestation - Oracio Alejandra MD - [...] Routine documented in this encounter Care Teams Computer Discovery Teacher Relationship Specialty Start Date End Date Anna Mullen MD PCP - General 12/03/[address] [place] [address] documented as of this encounter
--- OUTSIDE RECORDS SUMMARY | 2022-04-04 00:43 | XMS_ITS | Encounter Summary ---
:1965 Author Organization [facility] [place] [address] Care Team Providers Name Role Phone Anna Mullen MD Primary Care Provider Encounter Details Date Type Department Care Team Description 04/20/2020 Ancillary Procedure Radiology Library at Benjy Yang MD [facility] [place] [address] [place] [address] [phone] (Wo rk) Social History Tobacco Use Types [...] Time Received Time / Laterality Volume Narrative [facility] - 04/30/2020 8:35 PM EDT This exam is auto-finalizing. It's purpo se is for storage only. Benjy Yang MD IMG FILM LIBRARY ORDERABLES Performing Organization Address City/State/ZIP Code Phon e Number RAD RAD [place], [place] documented in this encounter Visit Diagnoses Not on filedocumented in this encounter Care Teams Skirt Clipper Relationship Specialty Start Date End Date Anna Mullen MD PCP - General 12/03/10 [address] [place] [address] documented as of this encounter
--- OUTSIDE RECORDS SUMMARY | 2022-04-04 00:43 | XMS_ITS | Encounter Summary ---
:1965 Author Organization [facility] [place] [address] Care Team Providers Name Role Phone Anna Mullen MD Primary Care Provider Reason for Visit Reason Comments Medication Refill Encounter Details Date Type Department Care Team Description 05/29/2020 Refill [facility] [place] [address] [place] [address] [phone] (Wo rk) Social History Tobacco Use Types [...] on filedocumented in this encounter Care Teams Cone Operator Relationship Specialty Start Date End Date Anna Mullen MD PCP - General 12/03/10 [address] [place] [address] documented as of this encounter
--- OUTSIDE RECORDS SUMMARY | 2022-04-04 00:43 | XMS_ITS | Encounter Summary ---
:1965 Author Organization [facility] [place] [address] Care Team Providers Name Role Phone Anna Mullen MD Primary Care Provider Reason for Visit Reason Onset Date Comments Medication Refill 06/11/2020 Encounter Details Date Type Department Care Team Description 06/11/2020 Refill Solid Organ Transplant at Eriberto Emery MD [facility] Unique pham [place] [address] [place] [address] [phone] (Wo rk) Social History Tobacco Use Types [...] on filedocumented in this encounter Care Teams Constitutional Law Professor Relationship Specialty Start Date End Date Anna Mullen MD PCP - General 12/03/10 [address] [place], [place] [address] documented as of this encounter
--- OUTSIDE RECORDS SUMMARY | 2022-04-04 00:43 | XMS_ITS | Encounter Summary ---
:1965 Author Organization [facility] [place] [address] Care Team Providers Name Role Phone Anna Mullen MD Primary Care Provider Encounter Details Date Type Department Care Team Description 05/28/2020 Telephone [place] [facility] [place] [address] Social History Tobacco Use Types Packs/Day [...] on filedocumented in this encounter Care Teams Fraud Investigator Relationship Specialty Start Date End Date Anna Mullen MD PCP - General 12/03/10 [address] [place], [place] [address] documented as of this encounter
--- OUTSIDE RECORDS SUMMARY | 2022-04-04 00:43 | XMS_ITS | Encounter Summary ---
:1965 Author Organization [facility] [place] [address] Care Team Providers Name Role Phone Anna Mullen MD Primary Care Provider Encounter Details Date Type Department Care Team Description 07/03/2020 Telephone Pain and Spine Cente r at [facility] Sameera Jurado, [place] [address] Social History Tobacco Use Types Packs/Day [...] postponed. Prior to checking in at [facility], please be sure to empty your bladder. Patient confirmed understanding that if they do not follow the above instructions, their procedure is likely to be cancelled. Marc RN documented in this encounter Plan of Treatment Not on filedocumented as of this encounter Visit Diagnoses Not on filedocumented in this encounter Care Teams Continuity Director Relationship Specialty Start Date End Date Anna Mullen MD PCP - General 12/03/10 [address] [place] [address] documented as of this encounter
--- OUTSIDE RECORDS SUMMARY | 2022-04-04 00:43 | XMS_ITS | Encounter Summary ---
:1965 Author Organization [facility] [place] [address] Care Team Providers Name Role Phone Anna [...] Expiration Date Visits Requ ested Visits Authorized [id number] 1 1 Encounter Details Date Type Department Care Team Description 08/15/2020 Ancillary Procedure Pain Management Bruce Tran usa, MD [facility] [id number] [place] [address] [phone] Social History Tobacco Use Types Packs/Day Years [...] Received Time / Laterality Volume Narrative [facility] - 08/15/2020 3:09 PM EST See PACS for result report. Oracio Alejandra MD IMG FILM LIBRARY ORDERABLES Performing Organization Address City/State/ZIP Code Phon e Number [place], [place] documented in this encounter Visit Diagnoses Not on filedocumented in this encounter Care Teams Vp Security Relationship Specialty Start Date End Date Anna Mullen MD PCP - General 12/03/10 [address] [place] [address] documented as of this encounter
--- OUTSIDE RECORDS SUMMARY | 2022-04-04 00:43 | XMS_ITS | Encounter Summary ---
:1965 Author Organization [facility] Address [place] [address] Care Team Providers Name Role Phone Anna Mullen MD Primary Care Provider Encounter Details Date Type Department Care Team Description 05/24/2020 Hospital Encounter XRay at [facility] [place] Benjy Yang, Acute low back pain, [address] [place] unspecified back [place], [place] [facility] pain laterality , [address] CENTER unspecified whether [phone] [facility] [place]atic[place] [address] Social History Tobacco Use Types Packs/Day Years [...] present documented in this encounter Care Teams Peanut Sheller Relationship Specialty Start Date End Date Anna Mullen MD PCP - General 12/03/10 [address] [place] [address] documented as of this encounter
--- OUTSIDE RECORDS SUMMARY | 2022-04-04 00:44 | XMS_ITS | Encounter Summary ---
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; [facility] SOB (shortness of breath) [place] [address] Social History Tobacco Use Types [...] with reflex Culture (02/16/2020 8:06 AM EDT) [facility] Method Time Signature Glucose UA Negative Negative [place] mg/dL [facility] Protein UA Negative Negative [facility] mg/dL [facility] Bilirubin UA Negative Negative [facility] mg/dL [facility] Comment: Clinical correlation required for positi ve Urine Bilirubin results as false positive may occur with some drugs and d rug related products. If a false positive is suspected a serum total bili sinha should be considered if clinically indicated. Urobilinogen UA Normal Normal mg/dL [facility] pH UA 6.0 5.0 - 8.0 [facility] Blood UA Negative Negative mg/dL [facility] Ketones UA Negative Negative mg/dL [facility] Nitrite UA Negative Negative [facility] Leukocytes UA Negative Negative [facility] LABORATORY Appearance UA Clear Clear [facility] Spec [place]all UA 1.010 1.006 - 1.030 [facility] Color UA Yellow Yellow [facility] Culture Reflexed No [facility] Specimen (Source) Anatomical Collection Method Collection Time Re ceived Time Location / / Volume Laterality Urine specimen 02/16/2020 8:06 02/16/2020 8:11 obtained by clean AM EDT AM EDT catch procedure (specimen) Resulting Agency Comment Spec In Lab Eriberto Melgar MD URINE ORDERABLES Performing Organization Address City/State/ZIP Code Phon e Number [place] [id number] (ABNORMAL) Differential, Automated (02/16/2020 8:01 AM EDT) [facility] Method Time Signature Neutrophils % 43.6 % [facility] Neutr Abs (ANC) 4.55 1.70 - [facility] 6.10 [facility] x10(3)/[facility] LABORATORY Lymphocytes % 41.7 % [facility] Lymphocytes Abs 4.3 (H) 0.9 - 3.2 [facility] x10(3)/[facility] LABORATORY Monocytes % 9.2 % [facility] Monocyte Abs 1.0 (H) 0.3 - 0.9 [facility] x10(3)/[facility] LABORATORY Eosinophils % 2.3 % [facility] Eosinophils Abs 0.2 0.0 - 0.4 [facility] x10(3)/[facility] LABORATORY Basophils % 1.1 % [facility] Basophils Abs 0.1 0.0 - 0.1 [facility] x10(3)/[facility] LABORATORY Immature Gran % 2.10 % [facility] Comment: Immature granulocytes(IG's)percentage an d absolute count will include metamyelocytes, myelocytes, and promyelo cytes. Blood smears from CBCs yielding IG's will be scanned manually for concor dance. If this scan disagrees with the automated IG or if promyelocytes are not ed, a manual differential will be performed. Kym Gran Abs 0.22 (H) 0.00 - 0.04 x10(3)/[facility] LABORATORY Specimen Anatomical Collection Method Collection Time Receive d Time (Source) Location / / Volume Laterality Blood specimen 02/16/2020 8:01 AM 020 8:07 (specimen) EDT AM EDT Resulting Agency Comment Spec In Lab Eriberto Melgar MD HEMATOLOGY ORDERABLES Performing Organization Address City/State/[place] [address] (ABNORMAL) Hemogram (02/16/2020 8:01 AM EDT) Analysis Performed At Patho logist Time Signature WBC 10.4 (H) 4.0 - 9.5 [facility] x10(3)/[facility] LABORATORY RBC 4.44 (L) 4.58 - [facility] 5.54 [facility] x10(6)/[facility] LABORATORY Hemoglobin 13.7 13.7 - [facility] 16.5 gm/dL [facility] Hematocrit 41.7 40.5 - [facility] 48.5 % [facility] MCV 93.9 (H) 82.9 - [facility] 93.1 [facility] LABORATORY MCH 30.9 27.5 - [facility] 32.1 pg [facility] MCHC 32.9 32.0 - [facility] 35.7 gm/dL [facility] Platelets 274 145 - 357 [facility] x10(3)/[facility] LABORATORY RDWSD 45.7 (H) 36.0 - [facility] 45.0 [facility] RDWCV 13.4 11.4 - [facility] 13.8 % [facility] MPV 9.8 7.6 - 12.9 [facility] nRBC % Auto 0.0 % [facility] nRBC Abs Auto 0.000 0.000 - [place] 0.000 [facility] x10(3)/[facility] LABORATORY Specimen Anatomical Collection Method Collection Time Receive d Time (Source) Location / / Volume Laterality Blood specimen 02/16/2020 8:01 AM 020 8:07 (specimen) EDT AM EDT Resulting Agency Comment Spec In Lab Eriberto Melgar MD HEMATOLOGY ORDERABLES Performing Organization Address City/State/ZIP Code Phon e Number [address] Reticulocyte Count (02/16/2020 8:01 AM EDT) P athologist Signature Retic Ct % 1.8 0.7 - 2.6 [facility] LABORATORY Retic Ct Abs 0.080 0.030 - [facility] 0.120 [facility] x10(6)/[facility] LABORATORY Immature Retic% 8.5 0.0 - 15.6 [facility] Reticulated Hgb 36.4 31.3 - [facility] 40.2 [facility] LABORATORY Specimen Anatomical Collection Method Collection Time Receive d Time (Source) Location / / Volume Laterality Blood specimen 02/16/2020 8:01 AM 020 8:07 (specimen) EDT AM EDT Resulting Agency Comment Spec In Lab Eriberto Melgar MD HEMATOLOGY ORDERABLES Performing Organization Address City/State/ZIP Code Phon e Number [address] Magnesium (02/16/2020 8:01 AM EDT) P athologist Signature Magnesium 0.82 0.69 - 1.07 [facility] mmol/L [facility] Specimen Anatomical Collection Method Collection Time Receive d Time (Source) Location / / Volume Laterality Blood specimen 02/16/2020 8:01 AM 020 8:07 (specimen) EDT AM EDT Resulting Agency Comment Spec In Lab Eriberto Melgar MD CHEMISTRY ORDERABLES Performing Organization Address City/State/ZIP Code Phon e Number [address] Phosphorus (02/16/2020 8:01 AM EDT) athologist Signature Phosphorus 3.6 2.5 - 4.5 [facility] mg/dL [facility] Specimen Anatomical Collection Method Collection Time Receive d Time (Source) Location / / Volume Laterality Blood specimen 02/16/2020 8:01 AM 020 8:07 (specimen) EDT AM EDT Resulting Agency Comment Spec In Lab Eriberto Melgar MD CHEMISTRY ORDERABLES Performing Organization Address City/[facility]/ZIP Code Phon e Number [address] Cholesterol, total (02/16/2020 8:01 AM EDT) athologist Signature Chol, Total 119 mg/dL [facility] Comment: Lower Risk: <200 mg/dL Average Risk: 200-239 mg/dL Higher Risk: >vm=857 mg/dL Lipid Interpretation See Note [facility] Comment: Lipid management should be guided by a p atient? s ASCVD risk, goals and preferences. ACC/AHA Guidelines recommend high intens ity statin if clinical ASCVD or LDL greater than or equal to 190 mg/dL. http://UASC PHYSICIANSurl.com/OQE-VIT-Uhvvqzjwl Adults aged 40-75 with LDL 70-189 mg/dL should have their 10 year ASCVD risk estimated with the ACC/AHA ASCVD risk es timator http://tools.acc.org/HYUTV-Ctzf-Lfetkpih r/ Statin should be discussed if risk [...] Melgar MD CHEMISTRY ORDERABLES Performing Organization Address City/[facility]/[place]IP [place] [address] Uric acid (02/16/2020 8:01 AM EDT) P athologist Signature Uric Acid 6.7 3.5 - 8.5 [facility] mg/dL [facility] Specimen Anatomical Collection Method Collection Time Receive d Time (Source) Location / / Volume Laterality Blood specimen 02/16/2020 8:01 AM 020 8:07 (specimen) EDT AM EDT Resulting Agency Comment Spec In Lab Eriberto Melgar MD CHEMISTRY ORDERABLES Performing Organization Address City/[facility]/ZIP Code Phon e Number [address] Amylase (02/16/2020 8:01 AM EDT) P athologist Signature Amylase 47 28 - 100 [facility] LABORATORY Specimen Anatomical Collection Method Collection Time Receive d Time (Source) Location / / Volume Laterality Blood specimen 02/16/2020 8:01 AM 020 8:07 (specimen) EDT AM EDT Resulting Agency Comment Spec In Lab Eriberto Melgar MD CHEMISTRY ORDERABLES Performing Organization Address City/[facility]/ZIP Code Phon e Number [address] Lipase (02/16/2020 8:01 AM EDT) P athologist Signature Lipase 24 0 - 60 [facility] LABORATORY Specimen Anatomical Collection Method Collection Time Receive d Time (Source) Location / / Volume Laterality Blood specimen 02/16/2020 8:01 AM 020 8:07 (specimen) EDT AM EDT Resulting Agency Comment Spec In Lab Eriberto Melgar MD CHEMISTRY ORDERABLES Performing Organization Address City/State/[place] [address] (ABNORMAL) Comprehensive metabolic panel (non-fasting) (02/16/2020 8:01 AM EDT) P athologist Signature Glucose Lvl 100 65 - 199 [facility] mg/dL [facility] Comment: Diabetes: >=200 mg/dL plus symp toms BUN 19 10 - 20 mg/dL [facility] Creatinine 1.00 0.80 - 1.50 mg/dL [facility] Sodium 133 (L) 135 - 145 mmol/L [facility] Potassium 4.2 3.5 - 5.0 mmol/L [facility] Comment: Please note: ??Patients with WBC >100,00 0 may have falsely elevated Potassium levels. ??For accurate Potassium quantif ication in these patients send serum separator tube (gold top) for subsequent determinations. ??Contact the Clinical Chemistry Laboratory if there are any qu estions. Chloride 95 (L) 98 - 107 mmol/L [facility] CO2 29 22 - 31 mmol/L [facility] Anion Gap 9 5 - 15 mmol/L [facility] Calcium 9.4 8.5 - 10.5 mg/dL [facility] Total Protein 6.9 6.1 - 8.0 gm/dL [facility] Albumin 4.2 3.2 - 5.2 gm/dL [facility] AST 11 0 - 39 unit/L [facility] ALT 16 0 - 55 unit/L [facility] Alk Phos 128 40 - 130 unit/L [facility] Total Bilirubin 0.7 0.2 - 1.3 mg/dL [facility] Estimated GFR 86 >=60 mL/min/1.73 m?? [facility] Comment: The eGFR was calculated using the CKD-EP I equation. As with all creatinine based estimates of kidney function, eGFR values calculated with the CKD-EPI equation are not accurate in patients wi th acute kidney failure, extremes of body mass or the acutely ill. http://EXFO/[facility] EL[facility] CITYnkf eGFR 100 >=60 mL/min/1.73 m?? [facility] Comment: The eGFR was calculated using the CKD-EP I equation. As with all creatinine based estimates of kidney function, eGFR values calculated with the CKD-EPI equation are not accurate in patients wi th acute kidney failure, extremes of body mass or the acutely ill. http://EXFO/[facility] CITYnkf Specimen Anatomical Collection Method Collection Time Receive d Time (Source) Location / / Volume Laterality Blood specimen 02/16/2020 8:01 AM 020 8:07 (specimen) EDT AM EDT Resulting Agency Comment Spec In Lab Eriberto Melgar MD CHEMISTRY ORDERABLES Performing Organization Address City/[facility] [place] [address] Tacrolimus level (02/16/2020 8:01 AM EDT) P athologist Signature Tacrolimus Lvl 5.7 ng/mL [facility] Comment: Trough therapeutic: ??5-15 ng/mL Performed by ultra-performance liquid ch romatography tandem mass spectrometry (UPLCMS/MS). This test was developed and its performa nce characteristics determined by [facility]. 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
--- OUTSIDE RECORDS SUMMARY | 2022-04-04 00:44 | XMS_ITS | Encounter Summary ---
:1965 [place] [address] Care Team Providers Name Role Phone Anna Mullen MD Primary Care Provider Encounter Details Date Type Department Care Team Description 08/06/2019 [facility]illary [facility] [place] [address] NEUROLOGY DEPT. [phone] [place], [place] [address] (Wo rk) Social History Tobacco [...] Organization Address City/State/ZIP Code Phon e Number [place], [place] documented in this encounter Visit Diagnoses Not on filedocumented in this encounter Care Teams Pharmacology Associate Relationship Specialty Start Date End Date Anna Mullen MD PCP - General 12/03/10 [address] [place] [address] documented as of this encounter
--- OUTSIDE RECORDS SUMMARY | 2022-04-04 00:44 | XMS_ITS | Encounter Summary ---
:1965 Author Organization [facility] [place] [address] Care Team Providers Name Role Phone Anna Mullen MD Primary Care Provider Encounter Details Date Type Department Care Team Description 02/09/2020 Hospital Encounter XRay at [facility] [place]obanian, Pancreas replaced by transpl ant; [address] [facility] [address] Eriberto Stoddard MD SOB (shortness of breath) [facility] [id number] [place] [phone] [place] [address] Social History Tobacco Use Types Packs/Day Years [...] For questions regarding this report, please contact [facility] number below. 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
--- OUTSIDE RECORDS SUMMARY | 2022-04-04 00:44 | XMS_ITS | Encounter Summary ---
:1965 Author Organization [facility] [place] [address] Care Team Providers Name Role Phone Anna Mullen MD Primary Care Provider Reason for Referral Speech Therapy (Routine) - Specialty Diagnoses / Procedures Referred By Contact Refer red To Contact Speech Pathology Diagnoses Ischemic stroke Ni Child APRN [facility] [place] [address] Referral ID Status Reason Start Date Expiration Date Visits V isits Requested Authorized [id number] Evaluate and 09/15/2019 03/13/2020 12 12 Treat Non PCP Encounter Details Date Type Department Care Team Description 2019 Telephone Neurology at [facility] Melita Sanches, [place] [address] Social History Tobacco Use Types Packs/Day [...] stroke documented in this encounter Care Teams Tool Machine Set Up Operator Relationship Specialty Start Date End Date Anna Mullen MD PCP - General 12/03/[address] [place] [address] documented as of this encounter
--- OUTSIDE RECORDS SUMMARY | 2022-04-04 00:44 | XMS_ITS | Encounter Summary ---
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; [facility] SOB (shortness of breath) [place] [address] Social History Tobacco Use Types [...] with reflex Culture (02/09/2020 1:21 PM EDT) [facility] Method Time Signature Glucose UA Negative Negative [facility] mg/dL [facility] Protein UA Negative Negative [facility] mg/dL [facility] Bilirubin UA Negative Negative [facility] mg/dL [facility] Comment: Clinical correlation required for positi ve Urine Bilirubin results as false positive may occur with some drugs and d rug related products. If a false positive is suspected a serum total bili sinha should be considered if clinically indicated. Urobilinogen UA Normal Normal mg/dL [facility] pH UA 6.5 5.0 - 8.0 [facility] Blood UA Negative Negative mg/dL [facility] Ketones UA Negative Negative mg/dL [facility] Nitrite UA Negative Negative [facility] Leukocytes UA Negative Negative [facility] LABORATORY Appearance UA Clear Clear [facility] Spec [place] UA 1.009 1.006 - 1.030 [facility] Color UA Yellow Yellow [facility] Culture Reflexed No [facility] Specimen (Source) Anatomical Collection Method Collection Time Re ceived Time Location / / Volume Laterality Urine specimen 02/09/2020 1:21 02/09/2020 1:28 obtained by clean PM EDT PM EDT catch procedure (specimen) Resulting Agency Comment Spec In Lab Eriberto Melgar MD URINE ORDERABLES Performing Organization Address City/State/[place] [address] (ABNORMAL) Differential, Automated (02/09/2020 1:17 PM EDT) [facility] Method Time Signature Neutrophils % 48.8 % [facility] Neutr Abs (ANC) 5.16 1.70 - [facility] 6.10 [facility] x10(3)/[facility] LABORATORY Lymphocytes % 40.0 % [facility] Lymphocytes Abs 4.2 (H) 0.9 - 3.2 [facility] x10(3)/[facility] LABORATORY Monocytes % 8.2 % [facility] Monocyte Abs 0.9 0.3 - 0.9 [facility] x10(3)/[facility] LABORATORY Eosinophils % 1.9 % [facility] Eosinophils Abs 0.2 0.0 - 0.4 [facility] x10(3)/[facility] LABORATORY Basophils % 0.6 % [facility] Basophils Abs 0.1 0.0 - 0.1 [facility] x10(3)/[facility] LABORATORY Immature Gran % 0.50 % [facility] Comment: Immature granulocytes(IG's)percentage an d absolute count will include metamyelocytes, myelocytes, and promyelo cytes. Blood smears from CBCs yielding IG's will be scanned manually for concor dance. If this scan disagrees with the automated IG or if promyelocytes are not ed, a manual differential will be performed. Kym Gran Abs 0.05 (H) 0.00 - 0.04 x10(3)/[facility] LABORATORY Specimen Anatomical Collection Method Collection Time Receive d Time (Source) Location / / Volume Laterality Blood specimen 02/09/2020 1:17 PM 020 1:24 (specimen) EDT PM EDT Resulting Agency Comment Spec In Lab Eriberto Melgar MD HEMATOLOGY ORDERABLES Performing Organization Address City/State/ZIP Code Phon e Number [place] [phone] (ABNORMAL) Hemogram (02/09/2020 1:17 PM EDT) Analysis Performed At Patho logist Time Signature WBC 10.6 (H) 4.0 - 9.5 [facility] x10(3)/[facility] LABORATORY RBC 4.46 (L) 4.58 - [facility] 5.54 [facility] x10(6)/[facility] LABORATORY Hemoglobin 13.9 13.7 - [facility] 16.5 gm/dL [facility] Hematocrit 41.4 40.5 - [facility] 48.5 % [facility] MCV 92.8 82.9 - [facility] 93.1 fL [facility] MCH 31.2 27.5 - [facility] 32.1 pg [facility] MCHC 33.6 32.0 - [facility] 35.7 gm/dL [facility] Platelets 245 145 - 357 [facility] x10(3)/[facility] LABORATORY RDWSD 46.4 (H) 36.0 - [facility] 45.0 [facility] LABORATORY RDWCV 13.6 11.4 - [facility] 13.8 % [facility]ORY MPV 9.8 7.6 - 12.9 [facility] LABORATORY nRBC % Auto 0.0 % [facility] LABOR[facility]ORY nRBC Abs Auto 0.000 0.000 - [facility] 0.000 [facility] x10(3)/[facility] LABORATORY Specimen Anatomical Collection Method Collection Time Receive d Time (Source) Location / / Volume Laterality Blood specimen 02/09/2020 1:17 PM 020 1:24 (specimen) EDT PM EDT Resulting Agency Comment Spec In Lab Eriberto Melgar MD HEMATOLOGY ORDERABLES Performing Organization Address City/State/[place] [address] COVID-19 Antibody (02/09/2020 1:17 PM EDT) [facility] Method Time Signature SARS-CoV-2 Not Detected Not Detected [facility] Nucleocap Ab [facility] Comment: Results cannot be used to [...] due to past or present infection with [id number] coronaviru s strains, such as coronavirus HKU1, NL63, OC43, or 229E. This test was performed using the Elecsy s Ouei-RIQW-NiO-2 total antibody test on the Nora Jessica e801 analyzer. This s erology test is available following FDA Emergency Use Authorization, however it has not been reviewed by the FDA, nor is it FDA cleared or approved. The perfo rmance characteristics of this test were determined by the Department of Pat hology and Laboratory Medicine at [facility]. The laboratory is certified under the [...] Performing Organization Address City/[facility]/ZIP Code Phon e Number [address] Reticulocyte Count (02/09/2020 1:17 PM EDT) athologist Signature Retic Ct % 1.4 0.7 - 2.6 [facility] LABORATORY Retic Ct Abs 0.060 0.030 - [facility] 0.120 [facility] x10(6)/[facility] LABORATORY Immature Retic% 5.2 0.0 - 15.6 [facility] LABOR[facility]ORY Reticulated Hgb 35.1 31.3 - [facility] 40.2 [facility] LABORATORY Specimen Anatomical Collection Method Collection Time Receive d Time (Source) Location / / Volume Laterality Blood specimen 02/09/2020 1:17 PM 020 1:24 (specimen) EDT PM EDT Resulting Agency Comment Spec In Lab Eriberto Melgar MD HEMATOLOGY ORDERABLES Performing Organization Address City/[facility]/[place] [address] (ABNORMAL) Magnesium (02/09/2020 1:17 PM EDT) P athologist Signature Magnesium 0.66 (L) 0.69 - 1.07 [facility] mmol/L [facility]OR[facility]ORY Specimen Anatomical Collection Method Collection Time Receive d Time (Source) Location / / Volume Laterality Blood specimen 02/09/2020 1:17 PM 020 1:24 (specimen) EDT PM EDT Resulting Agency Comment Spec In Lab Eriberto Melgar MD CHEMISTRY ORDERABLES Performing Organization Address City/[facility]/ZIP Code Phon e Number [address] Phosphorus (02/09/2020 1:17 PM EDT) athologist Signature Phosphorus 3.1 2.5 - 4.5 [facility] mg/dL [facility]ORY Specimen Anatomical Collection Method Collection Time Receive d Time (Source) Location / / Volume Laterality Blood specimen 02/09/2020 1:17 PM 020 1:24 (specimen) EDT PM EDT Resulting Agency Comment Spec In Lab Eriberto Melgar MD CHEMISTRY ORDERABLES Performing Organization Address City/[facility] Phon e Number [address] Cholesterol, total (02/09/2020 1:17 PM EDT) athologist Signature Chol, Total 115 mg/dL [facility]ORY Comment: Lower Risk: <200 mg/dL Average Risk: 200-239 mg/dL Higher Risk: >uf=856 mg/dL Lipid Interpretation See Note [facility]ORY Comment: Lipid management should be guided by a p atient? s ASCVD risk, goals and preferences. ACC/AHA Guidelines recommend high intens ity statin if clinical ASCVD or LDL greater than or equal to 190 mg/dL. [email or web address]-WWH-Hlcjefiyz Adults aged 40-75 with LDL 70-189 mg/dL should have their 10 year ASCVD risk estimated with the ACC/AHA ASCVD risk es timator http://tools.acc.org/VVMUA-Beye-Otibxwmj r/ Statin should be discussed if risk [...] Performing Organization Address City/[facility]/ZIP Code Phon e Number [address] Uric acid (02/09/2020 1:17 PM EDT) P athologist Signature Uric Acid 6.2 3.5 - 8.5 [facility] mg/dL [facility] Specimen Anatomical Collection Method Collection Time Receive d Time (Source) Location / / Volume Laterality Blood specimen 02/09/2020 1:17 PM 020 1:24 (specimen) EDT PM EDT Resulting Agency Comment Spec In Lab Eriberto Melgar MD CHEMISTRY ORDERABLES Performing Organization Address City/[facility]/ZIP Code Phon e Number [address] Amylase (02/09/2020 1:17 PM EDT) P athologist Signature Amylase 54 28 - 100 [facility] unit/[facility] LABOR[facility]ORY Specimen Anatomical Collection Method Collection Time Receive d Time (Source) Location / / Volume Laterality Blood specimen 02/09/2020 1:17 PM 020 1:24 (specimen) EDT PM EDT Resulting Agency Comment Spec In Lab Eriberto Melgar MD CHEMISTRY ORDERABLES Performing Organization Address City/[facility]/ZIP Code Phon e Number [address] Lipase (02/09/2020 1:17 PM EDT) P athologist Signature Lipase 21 0 - 60 [facility] unit/[facility] LABOR[facility]ORY Specimen Anatomical Collection Method Collection Time Receive d Time (Source) Location / / Volume Laterality Blood specimen 02/09/2020 1:17 PM 020 1:24 (specimen) EDT PM EDT Resulting Agency Comment Spec In Lab Eriberto Melgar MD CHEMISTRY ORDERABLES Performing Organization Address City/State/[place] [address] (ABNORMAL) Comprehensive metabolic panel (non-fasting) (02/09/2020 1:17 PM EDT) P athologist Signature Glucose Lvl 109 65 - 199 [facility] mg/dL [facility] Comment: Diabetes: >=200 mg/dL plus symp toms BUN 13 10 - 20 mg/dL [facility] Creatinine 1.20 0.80 - 1.50 mg/dL [facility] Sodium 127 (L) 135 - 145 mmol/L [facility] Potassium 4.8 3.5 - 5.0 mmol/L [facility] Comment: Please note: ??Patients with WBC >100,00 0 may have falsely elevated Potassium levels. ??For accurate Potassium quantif ication in these patients send serum separator tube (gold top) for subsequent determinations. ??Contact the Clinical Chemistry Laboratory if there are any qu estions. Chloride 92 (L) 98 - 107 mmol/L [facility] CO2 23 22 - 31 mmol/L [facility] Anion Gap 12 5 - 15 mmol/L [facility] Calcium 9.3 8.5 - 10.5 mg/dL [facility] Total Protein 7.4 6.1 - 8.0 gm/dL [facility] Albumin 4.7 3.2 - 5.2 gm/dL [facility] AST 22 0 - 39 unit/L [facility] ALT 24 0 - 55 unit/L [facility] Alk Phos 135 (H) 40 - 130 unit/L [facility] Total Bilirubin 1.1 0.2 - 1.3 mg/dL [facility] Estimated GFR 69 >=60 mL/min/1.73 m?? [facility] Comment: The eGFR was calculated using the CKD-EP I equation. As with all creatinine based estimates of kidney function, eGFR values calculated with the CKD-EPI equation are not accurate in patients wi th acute kidney failure, extremes of body mass or the acutely ill. [email or web address] OKLAH[facility] CITYnkf eGFR 80 >=60 mL/min/1.73 m?? [facility] Comment: The eGFR was calculated using the CKD-EP I equation. As with all creatinine based estimates of kidney function, eGFR values calculated with the CKD-EPI equation are not accurate in patients wi th acute kidney failure, extremes of body mass or the acutely ill. [email or web address] OK[facility] CITYnkf Specimen Anatomical Collection Method Collection Time Receive d Time (Source) Location / / Volume Laterality Blood specimen 02/09/2020 1:17 PM 020 1:24 (specimen) EDT PM EDT Resulting Agency Comment Spec In Lab Eriberto Melgar MD CHEMISTRY ORDERABLES Performing Organization Address City/[facility] [place] [address] Tacrolimus level (02/09/2020 1:17 PM EDT) athologist Signature Tacrolimus Lvl 14.3 ng/mL [facility] Comment: Trough therapeutic: ??5-15 ng/mL Performed by ultra-performance liquid ch romatography tandem mass spectrometry (UPLCMS/MS). This test was developed and its performa nce characteristics determined by [facility]. 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
--- OUTSIDE RECORDS SUMMARY | 2022-04-04 00:44 | XMS_ITS | Encounter Summary ---
:1965 Author Organization [facility] [address] Care Team Providers Name Role Phone Anna Mullen MD Primary Care Provider Encounter Details Date Type Department Care Team Description 02/09/2020 Telephone Solid Organ Transplant [place] [address] Social History Tobacco Use Types Packs/Day [...] Florinef 0.1 mg daily 2. Prednisone taper [id number] stop 3. Repeat labs in a week 4. If respiratory symptoms return after prednisone taper a referral will be sent for a Pulmonary consult I left a message for the pt to return my call to confirm the above. I sent prescriptions to his local pharmacy and also sent the above information to the pt in a [employer] message. documented in this encounter Plan of Treatment Not on filedocumented as of this encounter Visit Diagnoses Not on filedocumented in this encounter Care Teams Stock Receiver Relationship Specialty Start Date End Date Anna Mullen MD PCP - General 12/03/10 [address] [place] [address] documented as of this encounter
--- OUTSIDE RECORDS SUMMARY | 2022-04-04 00:44 | XMS_ITS | Encounter Summary ---
:1965 Author Organization [facility] [place] [address] Care Team Providers Name Role Phone Anna Mullen MD Primary Care Provider Encounter Details Date Type Department Care Team Description 02/07/2020 [facility] Ruled ou t possible [facility] exposure to novel Hospital coronavirus (COVID-19) [place] [address] Social History Tobacco Use Types Packs/Day [...] Results COVID-19 PCR (02/07/2020 1:55 PM EDT) [facility] Method Time Signature SARS-CoV-2 Not Detected Not Detected [facility] Comment: This result should [...] the instructions for use provided by the [employer] and additional guidance provided by CDC and FDA. Testing is performed in the [facility] [email or web address] [facility] [employer] [facility] within the Department of Path ology and Laboratory Medicine at [facility], cert ified under the Clinical Laboratory Improvement [...] fact sheets at the following FDA website: https://www.fda.gov/medical-devices/wfeefdonz-jdewjwkmwi-ohqniiv-devices/emergen wi-cjf-rbpzvvmypocowo#ehoef72ctw SARS-Cov-2 RNA Source [facility] Swab [facility] Specimen (Source) Anatomical Collection Method Collection Time Re ceived Time Location / / Volume Laterality Nasopharyngeal swab 02/07/2020 1:55 02/06 (specimen) PM EDT 3:28 PM EDT Comment: Symptoms->Fever / Respiratory S ymptoms Resulting Agency Comment Spec In Lab Eriberto Melgar MD MICROBIOLOGY - GENERAL ORDER ERICA Performing Organization Address City/State/[place] [address] documented in this encounter Visit Diagnoses Diagnosis Ruled out possible exposure to novel cor onavirus (COVID-19) documented in this encounter Care Teams Cash Register Mechanic Relationship Specialty Start Date End Date Anna Mullen MD PCP - General 12/03/10 [address] [place] [address] documented as of this encounter
--- OUTSIDE RECORDS SUMMARY | 2022-04-04 00:44 | XMS_ITS | Encounter Summary ---
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; [place] [address] Social History Tobacco Use Types [...] athologist Signature U Mg Ran 0.83 mmol/L [facility] Specimen Anatomical Collection Method Collection Time Receive d Time (Source) Location / / Volume Laterality Urine specimen 08/17/2019 10:05 9 (specimen) AM EST 10:12 AM EST Resulting Agency Comment Spec In Lab Eriberto Melgar MD URINE ORDERABLES Performing Organization Address City/State/ZIP Code Phon e Number [address] Phosphorus, urine, random (08/17/2019 10:05 AM EST) P athologist Signature U Phosphorus 18.1 mg/dL [facility] Specimen Anatomical Collection Method Collection Time Receive d Time (Source) Location / / Volume Laterality Urine specimen 08/17/2019 10:05 9 (specimen) AM EST 10:12 AM EST Resulting Agency Comment Spec In Lab Eriberto Melgar MD URINE ORDERABLES Performing Organization Address City/[facility]/ZIP Code Phon e Number [address] Calcium Creatinine Ratio, random urine (08/17/2019 10:05 AM EST) P athologist Signature U Calcium 1.7 mg/dL [facility] U Creatinine 35 mg/dL [facility] Ca/Cre Ratio 0.05 ratio [facility] Specimen Anatomical Collection Method Collection Time Receive d Time (Source) Location / / Volume Laterality Urine specimen 08/17/2019 10:05 9 (specimen) AM EST 10:12 AM EST Resulting Agency Comment Spec In Lab Eriberto Melgar MD URINE ORDERABLES Performing Organization Address City/[facility]/ZIP Code Phon e Number [address] Creatinine, urine, random (08/17/2019 10:05 AM EST) P athologist Signature U Creatinine 35 mg/dL [facility] Specimen Anatomical Collection Method Collection Time Receive d Time (Source) Location / / Volume Laterality Urine specimen 08/17/2019 10:05 9 (specimen) AM EST 10:12 AM EST Resulting Agency Comment Spec In Lab Eriberto Melgar MD URINE ORDERABLES Performing Organization Address City/State/[place] [address] Protein/Creatinine Ratio, urine (08/17/2019 10:05 AM EST) P athologist Signature U Creatinine 35 mg/dL [facility] U Protein Ran <6 0 - 12 [facility] mg/dL [facility] Prot/Cre Ratio <0.1 ratio [facility] Specimen Anatomical Collection Method Collection Time Receive d Time (Source) Location / / Volume Laterality Urine specimen 08/17/2019 10:05 9 (specimen) AM EST 10:12 AM EST Resulting Agency Comment Spec In Lab Eriberto Melgar MD URINE ORDERABLES Performing Organization Address City/State/ZIP [place] [address] Urinalysis with reflex Culture (08/17/2019 10:05 AM EST) Patholo gist Method Time Signature Glucose UA Negative Negative [facility] mg/dL [facility] Protein UA Negative Negative [facility] mg/dL [facility] Bilirubin UA Negative Negative [facility] mg/dL [facility] Comment: Clinical correlation required for positi ve Urine Bilirubin results as false positive may occur with some drugs and d rug related products. If a false positive is suspected a serum total bili sinha should be considered if clinically indicated. Urobilinogen UA Normal Normal mg/dL [facility] pH UA 6.5 5.0 - 8.0 [facility] Blood UA Negative Negative mg/dL [facility] Ketones UA Negative Negative mg/dL [facility] Nitrite UA Negative Negative [facility] Leukocytes UA Negative Negative [facility] LABORATORY Appearance UA Clear Clear [facility] Spec [place] UA 1.008 1.002 - 1.030 [facility] Color UA Yellow Yellow [facility] Culture Reflexed No [facility] Specimen (Source) Anatomical Collection Method Collection Time Re ceived Time Location / / Volume Laterality Urine specimen 08/17/2019 10:05 9 obtained by clean AM EST 10:[address] catch procedure (specimen) Resulting Agency Comment Spec In Lab Eriberto Melgar MD URINE ORDERABLES Performing Organization Address City/State/ZIP [place] [address] (ABNORMAL) Differential, Automated (08/17/2019 9:54 AM EST) [facility] Method Time Signature Neutrophils % 42.1 % [facility] Neutr Abs (ANC) 3.45 1.70 - [facility] 6.10 [facility] x10(3)/[facility] LABORATORY Lymphocytes % 45.7 % [facility] Lymphocytes Abs 3.7 (H) 0.9 - 3.2 [facility] x10(3)/[facility] LABORATORY Monocytes % 7.6 % [facility] Monocyte Abs 0.6 0.3 - 0.9 [facility] x10(3)/[facility] LABORATORY Eosinophils % 3.1 % [facility] Eosinophils Abs 0.2 0.0 - 0.4 [facility] x10(3)/[facility] LABORATORY Basophils % 0.9 % [facility] Basophils Abs 0.1 0.0 - 0.1 [facility] x10(3)/[facility] LABORATORY Immature Gran % 0.60 % [facility] Comment: Immature granulocytes(IG's)percentage an d absolute count will include metamyelocytes, myelocytes, and promyelo cytes. Blood smears from CBCs yielding IG's will be scanned manually for concor dance. If this scan disagrees with the automated IG or if promyelocytes are not ed, a manual differential will be performed. Kym Gran Abs 0.05 (H) 0.00 - 0.04 x10(3)/[facility] LABORATORY Specimen Anatomical Collection Method Collection Time Receive d Time (Source) Location / / Volume Laterality Blood specimen 08/17/2019 9:54 AM 019 (specimen) EST 10:01 AM EST Resulting Agency Comment Spec In Lab Eriberto Melgar MD HEMATOLOGY ORDERABLES Performing Organization Address City/State/ZIP Code Phon e Number TIFFANI [address] Hemogram (08/17/2019 9:54 AM EST) P athologist Signature WBC 8.2 4.0 - 9.5 [facility] x10(3)/[facility] LABORATORY RBC 4.86 4.58 - [facility] 5.54 [facility] x10(6)/[facility] LABORATORY Hemoglobin 14.5 13.7 - [facility] 16.5 gm/dL [facility] Hematocrit 43.4 40.5 - [facility] 48.5 % [facility]ORY MCV 89.3 82.9 - [facility] 93.1 [facility] LABORATORY MCH 29.8 27.5 - [facility] 32.1 pg [facility] LABORATORY MCHC 33.4 32.0 - [facility] 35.7 gm/dL [facility]ORY Platelets 255 145 - 357 [facility] x10(3)/[facility] LABORATORY RDWSD 43.1 36.0 - [facility] 45.0 [facility] LABORATORY RDWCV 13.2 11.4 - [facility] 13.8 % [facility] LABORATORY MPV 10.2 7.6 - 12.9 [facility] LABORATORY nRBC % Auto 0.0 % [facility] nRBC Abs Auto 0.000 0.000 - [facility] 0.000 [facility] x10(3)/[facility] LABORATORY Specimen Anatomical Collection Method Collection Time Receive d Time (Source) Location / / Volume Laterality Blood specimen 08/17/2019 9:54 AM 019 (specimen) EST 10:01 AM EST Resulting Agency Comment Spec In Lab Eriberto Melgar MD HEMATOLOGY ORDERABLES Performing Organization Address City/State/ZIP [place] [address] [facility] [address] BKV Quant Blood (08/17/2019 9:54 AM EST) Component Value Ref Test Analysis Performed At Patholo gist Range Method Time Signature BKV Blood Not Detected [facility] LABORATORY BKV Blood BK Virus Plasma Result Interpretation [facility] Result: BK Virus not detected HOSPITAL Specimen type: plasma LABORATO RY Assay Range: 2.80-7.80 log copies/mL (6.28x10^2 - 6.28x10^7 copies/mL) Methods: Quantitative real-time polymerase chain react ion (PCR) of viral DNA isolated from plasma was performed using [employer] ([employer]) BKV analyte-specific reagents and the [employer] System that automates both nucleic a deepak [...] acteristics determined by the Clinical Genomics and [employer] (CGAT) Laboratory at [facility]. It has not been cleared or approved [...] Organization Address City/State/Z[place] [address] Tacrolimus level (08/17/2019 9:54 AM EST) athologist Signature Tacrolimus Lvl 6.0 ng/mL [facility] Comment: Trough therapeutic: ??5-15 ng/mL Performed by ultra-performance liquid ch romatography tandem mass spectrometry (UPLCMS/MS). This test was developed and its performa nce characteristics determined by [facility]. It has not been [...] Organization Address City/State/[place] [address] Lavender Tube HOLD (08/17/2019 9:54 AM EST) Patholo gist Method Time Signature Lavender Hold Sample in [facility] LABORATORY Specimen Anatomical Collection Method Collection Time Receive d Time (Source) Location / / Volume Laterality Blood specimen 08/17/2019 9:54 AM 019 (specimen) EST 10:01 AM EST Eriberto Melgar MD HEMATOLOGY ORDERABLES Performing Organization Address City/[facility]/[place] [address] Gold Tube HOLD (08/17/2019 9:54 AM EST) P athologist Signature Gold Hold Sample in [facility] LABORATORY Specimen Anatomical Collection Method Collection Time Receive d Time (Source) Location / / Volume Laterality Blood specimen 08/17/2019 9:54 AM 019 (specimen) EST 10:01 AM EST Eriberto Melgar MD CHEMISTRY ORDERABLES Performing Organization Address City/State/[place] [address] Lipase (08/17/2019 9:54 AM EST) P athologist Signature Lipase 25 0 - 60 [facility] unit/L [facility] LABORATORY Specimen Anatomical Collection Method Collection Time Receive d Time (Source) Location / / Volume Laterality Blood specimen 08/17/2019 9:54 AM 019 (specimen) EST 10:01 AM EST Resulting Agency Comment Spec In Lab Eriberto Melgar MD CHEMISTRY ORDERABLES Performing Organization Address City/State/[place] [address] Amylase (08/17/2019 9:54 AM EST) athologist Signature Amylase 64 28 - 100 [facility] unit/L [facility]ORY Specimen Anatomical Collection Method Collection Time Receive d Time (Source) Location / / Volume Laterality Blood specimen 08/17/2019 9:54 AM 019 (specimen) EST 10:01 AM EST Resulting Agency Comment Spec In Lab Eriberto Melgar MD CHEMISTRY ORDERABLES Performing Organization Address City/State/ZIP [place] [address] Hemoglobin A1c (08/17/2019 9:54 AM EST) athologist Signature Hemoglobin A1C 5.4 4.3 - 5.6 [facility] Comment: Reference Range: [...] Mellitus, Diabetes Care 2013; 36: Suppl. 1, U87-10 Est Avg Gluc 110 mg/dL [facility] Comment: eAG equivalents for HbA1c percentages: HbA1c(%) ?eAG(mg/dL) 6.0 ?126 6.5 ?140 7.0 ?154 7.5 ?169 8.0 ?183 8.5 ?197 9.0 ?212 9.5 ?226 10.0 ? 240 Limitations: The eAG calculation has not been validated on women, individuals below 18 years old and above 70 years old, and individuals with hemoglobinopathies. Additional resources are available on api healthcare ADA website. Edinson GRISSOM, Nathaniel J, Ari R, et al. ??Tr anslating the A1C assay into estimated average glucose values. ??Diabetes Care 2008:31(8):4015-4642. Specimen Anatomical Collection Method Collection Time Receive d Time (Source) Location / / Volume Laterality Blood specimen 08/17/2019 9:54 AM 019 (specimen) EST 10:01 AM EST Resulting Agency Comment Spec In Lab Eriberto Melgar MD CHEMISTRY ORDERABLES Performing Organization Address City/State/[place] [address] Lipid Panel (Reflex Direct LDL) (08/17/2019 9:54 AM EST) athologist Signature Chol, Total 124 mg/dL [facility] Comment: Lower Risk: <200 mg/dL Average Risk: 200-239 mg/dL Higher Risk: >of=637 mg/dL Triglycerides 139 mg/dL [facility] Comment: Average Risk/Lower Risk: <150 mg/dL Borderline High Risk: 150-199 mg/dL High Risk: 200-499 mg/dL Very High Risk: >cq=452 mg/dL HDL 46 mg/dL [facility] Comment: Males: ?? Higher Risk: <40 mg/dL Females: ?? HIgher Risk: <50 mg/dL LDL Cholesterol 50 mg/dL [facility] Comment: Lowest Risk: <100 mg/dL Lower Risk: 100-129 mg/dL Borderline High Risk: 130-159 mg/dL High Risk: 160-189 mg/dL Very High Risk: >kw=303 mg/dL Chol/HDL Ratio 2.7 ratio [facility] Lipid Interpretation See Note [facility] Comment: Lipid management should be guided by a p atient? s ASCVD risk, goals and preferences. ACC/AHA Guidelines recommend high intens ity statin if clinical ASCVD or LDL greater than or equal to 190 mg/dL. http://Vocus Communicationsurl.com/HLV-EUC-Iqoblykzx Adults aged 40-75 with LDL 70-189 mg/dL should have their 10 year ASCVD risk estimated with the ACC/AHA ASCVD risk es timator http://tools.acc.org/CBQHT-Pmzw-Jizawkfi r/ Statin should be discussed if risk [...] Organization Address City/State/ZIP [place] [address] 1,25-dihydroxycholecalciferol (08/17/2019 9:54 AM EST) P athologist Signature Vit D 1,25 40 18 - 64 [facility] pg/mL [facility] Comment: ADDITIONAL INFORMATIO N This test was developed and its performa nce characteristics determined by [facility] in a manner co nsistent with CLIA requirements. This test has not been gene ared or approved by the U.S. Food and Drug Administration. Test Performed by: [facility] [address] [id number] Specialist: Dung Buenrostro M.D. Ph. D.; CLIA# [id number] Specimen Anatomical Collection Method Collection Time Receive d Time (Source) Location / / Volume Laterality Blood specimen 08/17/2019 9:54 AM 019 (specimen) EST 10:44 AM EST Resulting Agency Comment Spec In Lab Eriberto Melgar MD CHEMISTRY ORDERABLES Performing Organization Address City/[facility]/[place] [address] Vitamin D, 25-Hydroxy (08/17/2019 9:54 AM EST) P athologist Signature 25-OH Vit D 68 30 - 100 [facility] DEANRAMONA Total ng/mL [facility] Comment: As of 2019, 25-hydroxyvitamin D charles ting has moved from the [facility] to the [employer]. No substantial change in me asured values is expected. Specimen Anatomical Collection Method Collection Time Receive d Time (Source) Location / / Volume Laterality Blood specimen 08/17/2019 9:54 AM 019 (specimen) EST 10:01 AM EST Resulting Agency Comment Spec In Lab Eriberto Melgar MD CHEMISTRY ORDERABLES Performing Organization Address City/[facility]/[place] [address] PTH (08/17/2019 9:54 AM EST) P athologist Signature PTH 64 15 - 65 TIFFANI DEANRAMONA pg/mL [facility] Specimen Anatomical Collection Method Collection Time Receive d Time (Source) Location / / Volume Laterality Blood specimen 08/17/2019 9:54 AM 019 (specimen) EST 10:01 AM EST Resulting Agency Comment Spec In Lab Eriberto Melgar MD CHEMISTRY ORDERABLES Performing Organization Address City/State/[place] [address] Uric acid (08/17/2019 9:54 AM EST) P athologist Signature Uric Acid 6.3 3.5 - 8.5 [facility] [place] mg/dL [facility] Specimen Anatomical Collection Method Collection Time Receive d Time (Source) Location / / Volume Laterality Blood specimen 08/17/2019 9:54 AM 019 (specimen) EST 10:01 AM EST Resulting Agency Comment Spec In Lab Eriberto Melgar MD CHEMISTRY ORDERABLES Performing Organization Address City/State/ZIP Code Phon e Number [address] Magnesium (08/17/2019 9:54 AM EST) athologist Signature Magnesium 0.77 0.69 - 1.07 [facility] mmol/L [facility] Specimen Anatomical Collection Method Collection Time Receive d Time (Source) Location / / Volume Laterality Blood specimen 08/17/2019 9:54 AM 019 (specimen) EST 10:01 AM EST Resulting Agency Comment Spec In Lab Eriberto Melgar MD CHEMISTRY ORDERABLES Performing Organization Address City/[facility]/ZIP Code Phon e Number [address] Phosphorus (08/17/2019 9:54 AM EST) athologist Signature Phosphorus 2.7 2.5 - 4.5 [facility] mg/dL [facility] Specimen Anatomical Collection Method Collection Time Receive d Time (Source) Location / / Volume Laterality Blood specimen 08/17/2019 9:54 AM 019 (specimen) EST 10:01 AM EST Resulting Agency Comment Spec In Lab Eriberto Melgar MD CHEMISTRY ORDERABLES Performing Organization Address City/State/[place] [address] (ABNORMAL) Comprehensive metabolic panel (non-fasting) (08/17/2019 9:54 AM EST) athologist Signature Glucose Lvl 109 65 - 199 [facility] mg/dL [facility] Comment: Diabetes: >=200 mg/dL plus symp toms BUN 14 10 - 20 mg/dL [facility] Creatinine 1.05 0.80 - 1.50 mg/dL [facility] Sodium 133 (L) [...] Chloride 97 (L) 98 - 107 mmol/L [facility] CO2 26 22 - 31 mmol/L [facility] Anion Gap 10 5 - 15 mmol/L [facility] Calcium 9.5 8.5 - 10.5 mg/dL [facility] Total Protein 7.5 6.1 - 8.0 gm/dL [facility] Albumin 4.4 3.2 - 5.2 gm/dL [facility] AST 24 0 - 39 unit/L [facility] ALT 22 0 - 55 unit/L [facility] Alk Phos 108 40 - 130 unit/L [facility] Total Bilirubin 0.8 0.2 - 1.3 mg/dL [facility] Estimated GFR 82 >=60 mL/min/1.73 m?? [facility] Comment: The eGFR was calculated using the CKD-EP I equation. As with all creatinine based estimates of kidney function, eGFR values calculated with the CKD-EPI equation are not accurate in patients wi th acute kidney failure, extremes of body mass or the acutely ill. [email or web address]/[email or web address]THnkf eGFR 95 >=60 mL/min/1.73 m?? [facility] Comment: The eGFR was calculated using the CKD-EP I equation. As with all creatinine based estimates of kidney function, eGFR values calculated with the CKD-EPI equation are not accurate in patients wi th acute kidney failure, extremes of body mass or the acutely ill. [email or web address]/DHnkf Specimen Anatomical Collection Method Collection Time Receive d Time (Source) Location / / Volume Laterality Blood specimen 08/17/2019 9:54 AM 019 (specimen) EST 10:01 AM EST Resulting Agency Comment Spec In Lab Eriberto Melgar MD CHEMISTRY ORDERABLES Performing Organization Address City/[facility]/ZIP Code Phon e Number [address] Reticulocyte Count (08/17/2019 9:54 AM EST) P athologist Signature Retic Ct % 1.4 0.7 - 2.6 [facility] % [facility] LABORATORY Retic Ct Abs 0.070 0.030 - TIFFANI RAMONA 0.120 [facility] x10(6)/[facility] LABORATORY Immature Retic% 4.7 0.0 - 15.6 [facility] % [facility]ORY Reticulated Hgb 34.2 31.3 - [facility] 40.2 pg [facility] Specimen Anatomical Collection Method Collection Time Receive d Time (Source) Location / / Volume Laterality Blood specimen 08/17/2019 9:54 AM 019 (specimen) EST 10:01 AM EST Resulting Agency Comment Spec In Lab Eriberto Melgar MD HEMATOLOGY ORDERABLES Performing Organization Address City/[facility]/[place] [address] C-peptide (08/17/2019 9:54 AM EST) athologist Signature C-Peptide 2.7 0.8 - 5.2 [facility] ng/mL [facility] Specimen Anatomical Collection Method Collection Time Receive d Time (Source) Location / / Volume Laterality Blood specimen 08/17/2019 9:54 AM 019 (specimen) EST 10:01 AM EST Resulting Agency Comment Spec In Lab Eriberto Melgar MD CHEMISTRY ORDERABLES Performing Organization Address City/[facility]/[place] [address] documented in this encounter Visit Diagnoses Diagnosis Aftercare following organ transplant 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
--- OUTSIDE RECORDS SUMMARY | 2022-04-04 00:44 | XMS_ITS | Encounter Summary ---
:1965 Author Organization [facility] [place] [address] Care Team Providers Name Role Phone Anna Mullen MD Primary Care Provider Reason for Visit Reason Onset Date Comments Medication Refill 02/17/2019 Encounter Details Date Type Department Care Team Description 02/17/2019 Refill Solid Organ Transplant Peterson Ortez , [place] [facility] [place] [phone] Social History Tobacco Use Types Packs/Day [...] transplant documented in this encounter Care Teams Data Entry Manager Relationship Specialty Start Date End Date Anna Mullen MD PCP - General 12/03/10 [address] [place], [place] [id number] documented as of this encounter
--- OUTSIDE RECORDS SUMMARY | 2022-04-04 00:44 | XMS_ITS | Encounter Summary ---
:1965 Author Organization [facility] [place] [address] Care Team Providers Name Role Phone Anna Mullen MD Primary Care Provider Encounter Details Date Type Department Care Team Description 06/01/2019 Notes [place] [facility] [place] [address] Social History Tobacco Use Types Packs/Day Years Used Date Never Smoker Smokeless Tobacco: Never Used Alcohol Use Standard Drinks/Week Comments No 0 (1 standard drink = 0.6 oz pure alcoho l) history of abuse, stopped 1996 Sex Assigned at Date Recorded Male 05/29/2021 11:28 PM EDT documented as of this encounter Progress Notes Donna Manzano - 06/01/2019 9:55 AM EDT Transplant Lost Charge Card Clerk Note: Patient called to report he exhausted [...] filedocumented in this encounter Care Teams Machine Filler Shredder Relationship Specialty Start Date End Date Anna Mullen MD PCP - General 12/03/10 [address] [place] [address] documented as of this encounter
--- OUTSIDE RECORDS SUMMARY | 2022-04-04 00:44 | XMS_ITS | Encounter Summary ---
:1965 Author Organization [facility] [place] [address] Care Team Providers Name Role Phone Anna Mullen MD Primary Care Provider Reason for Referral Speech Therapy (Routine) - Specialty Diagnoses / Procedures Referred By Contact Refer red To Contact Diagnoses Cerebrovascular accident (CVA), unspecified mechanism Kaitlyn Baltazar APRN [facility] [place] [address] Referral ID Status Reason Start Date Expiration Date Visits V isits Requested Authorized [id number] Evaluate and 08/07/2019 02/03/2020 12 12 Treat Reason for Visit Reason Comments Transient Ischemic Attack Auth/Cert Specialty Diagnoses / Procedures Referred By Contact Refer red To Contact Diagnoses TIA (transient ischemic attack) TIA Procedures EMERGENCY OBSVO Referral ID Status Reason Start Date Expiration Date Visits Requ ested Visits Authorized [id number] 1 1 Encounter Details Date Type Department Care Team Description 08/06/2019 - Emergency 5 Jameel Clay Jr., MD [address] [place] [address] [place] [address] 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 [address] TIA (transient ischemic attack); Hospital Cerebrovascular accident (CV A), unspecified mechanism; [facility] Stroke-[place] [address] Social History Tobacco Use Types Packs/Day Years [...] in this encounter Discharge Summaries Kaitlyn Baltazar, LEVEL VIAL INSPECTOR - 08/07/2019 10:01 AM EST Images from the original note were not included. Discharge Summary Patient Name: Richard Hsu Patient Age: 53 y.o. Language: Yemeni Race: White Ethnicity: Not nor Admit date: [...] author(s) of this discharge summary through the [facility] Geometry Professor . Discharge Diagnoses: Presumed small right lateral [...] depression, gastroparesis, migraines, hypothyroidism who presented to [facility] for slurred speech and some ataxia, [...] and CT angiogram of the carotids and [place] of [place] which were unrevealing. [facility] was called for further phone consultation and it was recommended thatpatient be loaded with clopidogrel (as part of the point trial) and transferred to [facility], CDU, to [facility] plete stroke work-up. ?? Of note, patient [...] L Elbow flexion 5/5 R, 4/5 L Generating Station Mechanic LE: 5/5 R, 4+/5 L Hip flexion [...] depression, gastroparesis, migraines, hypothyroidism who presented to [facility] for slurred speech and some ataxia, [...] L Elbow flexion 5/5 R, 4/5 L Generating Station Mechanic LE: 5/5 R, 4+/5 L Hip flexion [...] were admitted to the neurology service at [facility] Your Diagnosis: Small vessel disease [...] 10. Consider Diabetes Education in your community; [facility] offers a diabetes program called ???Jump Start?? . Call [facility] for more information. Know Your Numbers! Blood [...] follow-up appointment in the neurology clinic at [facility]. See below for the appointment time. If [...] author(s) of this discharge summary through the [facility] Geometry Professor . IMPACT Improving Post-Acute Care Transitions after Stroke The Stroke Team at [facility] is committed to supporting stroke patients [...] a doctor or an associate provider (physician certified nursing assistant instructor or nurse practitioner) who specializes in stroke [...] 08/17/2019 9:40 AM BULMARO, THREE L [facility] Arrive at: [place] 3L [phone] 08/17/2019 10:40 AM Eriberto Melgar MD Solid Organ Transplant at [facility] Arrive at: [place] [phone] Future Orders Complete By Expires Referral to Speech Therapy [[id number] Custom] As directed Process Instructions: Scheduling Instructions: Questions: Evaluation location?: In Clinic Reason for Speech Evaluation?: Recommended focus?: Primary Care Provider: Anna Mullen MD [address] / [place] [address] Discharge References/Attachments None documented in this encounter Discharge Instructions Patient InstructionsAnnestiven Kaitlyn Stoddard, LEVEL VIAL INSPECTOR - 08/07/2019 9:59 AM EST Images from the original note were not included. Patient Instructions: You were admitted to the neurology service at [facility] Your Diagnosis: Small vessel disease [...] 10. Consider Diabetes Education in your community; [facility] offers a diabetes program called ???Jump Start?? . Call [facility] for more information. Know Your Numbers! Blood [...] follow-up appointment in the neurology clinic at [facility]. See below for the appointment time. If [...] author(s) of this discharge summary through the [facility] Geometry Professor . IMPACT Improving Post-Acute Care Transitions after Stroke The Stroke Team at [facility] is committed to supporting stroke patients [...] a doctor or an associate provider (physician certified nursing assistant instructor or nurse practitioner) who specializes in stroke [...] depression, gastroparesis, migraines, hypothyroidism who presented to [facility] for slurred speech and some ataxia, [...] L Elbow flexion 5/5 R, 4/5 L Generating Station Mechanic LE: 5/5 R, 4+/5 L Hip flexion [...] depression, gastroparesis, migraines, hypothyroidism who presented to [facility] for slurred speech and some ataxia, [...] -CTA head & neck-COMPLETED AT OUTSIDE HOSPITAL -PT/OT/SACK SORTER evaluations Lance Saab MD Neurology Resident - PGY-4 Vascular Neurology (Stroke) team pager: [phone] 08/07/19 Geoffrey Martinez MD - 08/06/2019 7:54 [...] depression, gastroparesis, migraines, hypothyroidism who presented to [facility] for slurred speech and some ataxia, as well as weakness involving the left upper and lower extremities ?? ASSESSMENT Richard Hsu was transferred from [facility] for further evaluation of strokelike symptoms. 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 Jameel Garcia Jr., MD 08/06/19 0865 documented in this encounter Miscellaneous Notes Plan [...] DIAGNOSTIC performed by Anna Rapp MD at [facility] ENDOSCOPY ??? PRO TRANSPLANT ALLOGRAFT PANCREAS 08/28/2013 @PANCREATIC TRANSPLANT performed by Iraj Keller MD at [facility] MAIN OR ??? PRO TRANSPLANT, PREP DONOR PANCREAS 08/28/2013 @PREPARATION CADAVERIC PANCREAS, STANDARD performed by Iraj Keller MD at [facility] MAIN OR ??? PRO UNLISTED PROCEDURE, MUSCULOSKELETAL SYSTEM, GENERAL 10 years carpel tunnel ??? PRO UPPER GI ENDOSCOPY, BIOPSY 12/31/2011 UPPER GASTROINTESTINAL ENDOSCOPY,WITH BIOPSY SINGLE OR MULTIPLE performed by CLAYTON BHAKTA at [facility] ENDOSCOPY ??? PRO UPPER GI ENDOSCOPY, BIOPSY N/A 08/15/2015 EGD WITH BIOPSY performed by Clayton Bhakta MD at [facility] ENDOSCOPY ??? SHOULDER SURGERY ??? 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 Pager: [phone] FELISA EVANGELISTA OT 08/07/2019 Occupational Therapy Rehabilitation [...] questions, thank you. Maryann Greenberg, PT Pager #[phone] Physical Therapy Inpatient Rehabilitation Plan of Care [...] this time in hospital course [ ] [facility] Plan of Care - Beatriz Camara, SACK SORTER - 08/06/2019 5:19 PM EST Speech Therapy Bedside Swallow Evaluation Patient Profile: Richard Hsu is a 53 y.o. male admitted on 08/06/2019 with history of pancreatictransplant, ASCVD, depression, gastroparesis, migraines, hypothyroidism who presented to [facility] for slurred speech, difficulty swallowing and some [...] and exaggerating productions to improve speech intelligibility. SACK SORTER will continue to follow and make additional [...] food thoroughly Pt will benefit from continued SACK SORTER services while hospitalized Speech Therapy Goals: (To [...] any questions or concerns. Beatriz Camara MS, [facility]-SACK SORTER Pager: [phone] Speech-Language Pathology Inpatient Rehabilitation Department Consult Note [...] depression, gastroparesis, migraines, hypothyroidism who presented to [facility] for slurred speech and some ataxia, [...] and CT angiogram of the carotids and [place] of [place] which were unrevealing. [facility] was called for further phone consultation and it was recommended thatpatient be loaded with clopidogrel (as part of the point trial) and transferred to [facility], CDU, to [facility] plete stroke work-up. Of note, patient notes [...] DIAGNOSTIC performed by Anna Rapp MD at [facility] ENDOSCOPY ??? PRO TRANSPLANT ALLOGRAFT PANCREAS 08/28/2013 @PANCREATIC TRANSPLANT performed by Iraj Keller MD at [facility] MAIN OR ??? PRO TRANSPLANT, PREP DONOR PANCREAS 08/28/2013 @PREPARATION CADAVERIC PANCREAS, STANDARD performed by Iraj Keller MD at [facility] MAIN OR ??? PRO UNLISTED PROCEDURE, MUSCULOSKELETAL SYSTEM, GENERAL 10 years carpel tunnel ??? PRO UPPER GI ENDOSCOPY, BIOPSY 12/31/2011 UPPER GASTROINTESTINAL ENDOSCOPY,WITH BIOPSY SINGLE OR MULTIPLE performed by CLAYTON BHAKTA at [facility] ENDOSCOPY ??? PRO UPPER GI ENDOSCOPY, BIOPSY N/A 08/15/2015 EGD WITH BIOPSY performed by Clayton Bhakta MD at [facility] ENDOSCOPY ??? SHOULDER SURGERY ??? UPPER GI ENDOSCOPY, EXAM 12/31/2011 UPPER GI ENDOSCOPY performed by CLAYTON BHAKTA at [facility] ENDOSCOPY Home Medications: No current facility-administered [...] Denies Illicits: Denies Living situation: Lives in [facility], with his and a dog as well as a cat Occupation: Works for the [employer] in the [employer] division Social History Socioeconomic History ??? 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 Consider SACK SORTER consult for full evaluation and diet recommendations. [...] oriented with thick sounding voice, received Rylan/racemic TRANSFUSION NURSE to OSH, some throat swelling per MD, [...] EST) athologist Signature CRP 0.7 <=4.9 mg/L [facility] Specimen Anatomical Collection Method Collection Time Receive d Time (Source) Location / / Volume Laterality Blood specimen Venous Draw / 08/07/2019 6:54 AM 2018 7:09 (specimen) Unknown EST AM EST Resulting Agency Comment Spec In Lab Lance Saab MD CHEMISTRY ORDERABLES Performing Organization Address City/[facility]/[place] [address] Sedimentation rate (08/07/2019 6:54 AM EST) athologist Signature Sed Rate 5 0 - 15 [facility] mm/hr [facility] Specimen Anatomical Collection Method Collection Time Receive d Time (Source) Location / / Volume Laterality Blood specimen Venous Draw / 08/07/2019 6:54 AM 2018 7:08 (specimen) Unknown EST AM EST Resulting Agency Comment Spec In Lab Lance Saab MD HEMATOLOGY ORDERABLES Performing Organization Address City/[facility]/[place] [address] (ABNORMAL) BMP w/fasting Glucose (08/07/2019 6:54 AM EST) athologist Signature Glucose 111 (H) 65 - 99 [facility] Fasting mg/dL [facility] Comment: ?Fasting* Glucose Interpretive C [...] of Diabetes Mellitus, Position Statement from the [place] [employer]. ??Diabete s Care, Volume 33, Supplement 1, Aug 2009 BUN 10 10 - 20 mg/dL [facility] Creatinine 0.93 0.80 - 1.50 mg/dL [facility] Sodium 138 135 - 145 mmol/L [facility] Potassium 4.3 3.5 - 5.0 mmol/L [facility] Comment: Please note: ??Patients with WBC >100,00 0 may have falsely elevated Potassium levels. ??For accurate Potassium quantif ication in these patients send serum separator tube (gold top) for subsequent determinations. ??Contact the Clinical Chemistry Laboratory if there are any qu estions. Chloride 104 98 - 107 mmol/L [facility] CO2 22 22 - 31 mmol/L [facility] Anion Gap 12 5 - 15 mmol/L [facility] Calcium 9.0 8.5 - 10.5 mg/dL [facility] Estimated GFR 95 >=60 mL/min/1.73 m?? [facility] Comment: The eGFR was calculated using the CKD-EP I equation. As with all creatinine based estimates of kidney function, eGFR values calculated with the CKD-EPI equation are not accurate in patients wi th acute kidney failure, extremes of body mass or the acutely ill. http://[employer]/DHMCnkf eGFR 110 >=60 mL/min/1.73 m?? [facility] Comment: The eGFR was calculated using the CKD-EP I equation. As with all creatinine based estimates of kidney function, eGFR values calculated with the CKD-EPI equation are not accurate in patients wi th acute kidney failure, extremes of body mass or the acutely ill. http://[employer]/DHMCnkf Specimen Anatomical Collection Method Collection Time Receive d Time (Source) Location / / Volume Laterality Blood specimen 08/07/2019 6:54 AM 019 7:08 (specimen) EST AM EST Resulting Agency Comment Spec In Lab Lance Saab MD CHEMISTRY ORDERABLES Performing Organization Address City/State/[place] [address] Differential, Automated (08/07/2019 6:54 AM EST) P athologist Signature Neutrophils % 47.4 % [facility] Neutr Abs (ANC) 3.08 1.70 - [facility] 6.10 [facility] x10(3)[facility] LABORATORY Lymphocytes % 39.3 % [facility] Lymphocytes Abs 2.6 0.9 - 3.2 [facility] x10(3)/[facility] LABORATORY Monocytes % 8.4 % [facility] Monocyte Abs 0.6 0.3 - 0.9 [facility] x10(3)/[facility] LABORATORY Eosinophils % 3.8 % [facility] Eosinophils Abs 0.2 0.0 - 0.4 [facility] x10(3)/[facility] LABORATORY Basophils % 0.6 % [facility] Basophils Abs 0.0 0.0 - 0.1 [facility] x10(3)/[facility] LABORATORY Immature Gran % 0.50 % [facility] Comment: Immature granulocytes(IG's)percentage an d absolute count will include metamyelocytes, myelocytes, and promyelo cytes. Blood smears from CBCs yielding IG's will be scanned manually for concor dance. If this scan disagrees with the automated IG or if promyelocytes are not ed, a manual differential will be performed. Kym Gran Abs 0.03 0.00 - 0.04 x10(3)/[facility] Specimen Anatomical Collection Method Collection Time Receive d Time (Source) Location / / Volume Laterality Blood specimen 08/07/2019 6:54 AM 019 7:08 (specimen) EST AM EST Resulting Agency Comment Spec In Lab Lance Saab MD HEMATOLOGY ORDERABLES Performing Organization Address City/State/ZIP Code Phon e Number [address] Hemogram (08/07/2019 6:54 AM EST) athologist Signature WBC 6.5 4.0 - 9.5 [facility](3[facility] LABORATORY RBC 4.71 4.58 - [facility] 5.54 [facility] x10(6)/[facility] LABORATORY Hemoglobin 14.0 13.7 - [facility] 16.5 gm/dL [facility] Hematocrit 41.5 40.5 - [facility] 48.5 % [facility] MCV 88.1 82.9 - [facility] 93.1 [facility] LABORATORY MCH 29.7 27.5 - [facility] [place] 32.1 pg [facility] MCHC 33.7 32.0 - [facility] [place] 35.7 gm/dL [facility] Platelets 210 145 - 357 [facility] x10(3)/[facility] LABORATORY RDWSD 41.9 36.0 - [facility] [place] 45.0 [facility] LABORATORY RDWCV 13.0 11.4 - [facility] [place] 13.8 % [facility] MPV 10.6 7.6 - 12.9 [facility] LABORATORY nRBC % Auto 0.0 % [facility] nRBC Abs Auto 0.000 0.000 - [facility] [place] 0.000 [facility] x10(3)/[facility] LABORATORY Specimen Anatomical Collection Method Collection Time Receive d Time (Source) Location / / Volume Laterality Blood specimen 08/07/2019 6:54 AM 019 7:08 (specimen) EST AM EST Resulting Agency Comment Spec In Lab Lance Saab MD HEMATOLOGY ORDERABLES Performing Organization Address City/State/ZIP Code Phon e Number [address] APTT (08/07/2019 6:54 AM EST) P athologist Signature PTT 30 25 - 37 sec [facility] Comment: The PTT is NOT [...] Jr., MD HEMATOLOGY ORDERABLES Performing Organization Address City/[facility] Phon e Number [address] (ABNORMAL) Prothrombin Time (08/07/2019 6:54 AM EST) athologist Signature PT 12.6 (H) 9.4 - 12.5 [facility] LABORATORY INR 1.1 [facility] Comment: An INR <2.0 indicates [...] Jr., MD HEMATOLOGY ORDERABLES Performing Organization Address City/[facility]/ZIP [facility] [place] [address] Hepatic Function Panel (08/07/2019 6:54 AM EST) athologist Signature Total Protein 6.6 6.1 - 8.0 [facility] gm/dL [facility] Albumin 3.8 3.2 - 5.2 [facility] [place] gm/dL [facility] AST 23 0 - 39 [facility] [place] unit/L [facility] ALT 20 0 - 55 [facility] [place] unit/L [facility] Alk Phos 92 40 - 130 [facility] [place] unit/L [facility] Total 1.3 0.2 - 1.3 [facility] [place] Bilirubin mg/dL [facility] Bili, Direct 0.2 0.0 - 0.3 [facility] [place] mg/dL [facility] Specimen Anatomical Collection Method Collection Time Receive d Time (Source) Location / / Volume Laterality Blood specimen 08/07/2019 6:54 AM 019 7:08 (specimen) EST AM EST Resulting Agency Comment Spec In Lab Jameel Garcia Jr., MD CHEMISTRY ORDERABLES Performing Organization Address City/[facility]/ZIP Code Phon e Number [address] Phosphorus (08/07/2019 6:54 AM EST) P athologist Signature Phosphorus 2.9 2.5 - 4.5 [facility] [place] mg/dL [facility] Specimen Anatomical Collection Method Collection Time Receive d Time (Source) Location / / Volume Laterality Blood specimen 08/07/2019 6:54 AM 019 7:08 (specimen) EST AM EST Resulting Agency Comment Spec In Lab Jameel Garcia Jr., MD CHEMISTRY ORDERABLES Performing Organization Address City/[facility]/ZIP Code Phon e Number [address] (ABNORMAL) Magnesium (08/07/2019 6:54 AM EST) P athologist Signature Magnesium 0.66 (L) 0.69 - 1.07 [facility] [place] mmol/L [facility] Specimen Anatomical Collection Method Collection Time Receive d Time (Source) Location / / Volume Laterality Blood specimen 08/07/2019 6:54 AM 019 7:08 (specimen) EST AM EST Resulting Agency Comment Spec In Lab Jameel Garcia Jr., MD CHEMISTRY ORDERABLES Performing Organization Address City/State/[place] [address] Triglyceride (08/07/2019 6:54 AM EST) P athologist Signature Triglycerides 121 mg/dL [facility] Comment: Average Risk/Lower Risk: <150 mg/dL Borderline High Risk: 150-199 mg/dL High Risk: 200-499 mg/dL Very High Risk: >kd=539 mg/dL Specimen Anatomical Collection Method Collection Time Receive d Time (Source) Location / / Volume Laterality Blood specimen 08/07/2019 6:54 AM 019 7:08 (specimen) EST AM EST Resulting Agency Comment Spec In Lab Jameel Garcia Jr., MD CHEMISTRY ORDERABLES Performing Organization Address City/State/ZIP [place] [address] HDL/Cholesterol Profile (08/07/2019 6:54 AM EST) athologist Signature Chol, Total 138 mg/dL [facility] Comment: Lower Risk: <200 mg/dL Average Risk: 200-239 mg/dL Higher Risk: >es=130 mg/dL HDL 36 mg/dL [facility] Comment: Males: ?? Higher Risk: <40 mg/dL Females: ?? HIgher Risk: <50 mg/dL Chol/HDL Ratio 3.8 ratio [facility] Chol/HDL Interpretation See Note [facility] Comment: Lipid management should be guided by a p atient? s ASCVD risk, goals and preferences. ACC/AHA Guidelines recommend high intens ity statin if clinical ASCVD or LDL greater than or equal to 190 mg/dL. http://Zimoryurl.com/XTW-CLB-Mhsagplro Measure LDL if Total Cholesterol minus H DL Cholesterol is greater than 220 mg/dL. Adults aged 40-75 with LDL 70-189 mg/dL should have their 10 year ASCVD risk estimated with the ACC/AHA ASCVD risk es timator http://tools.acc.org/KMGOB-Zmml-Drdgiaaz r/ Statin should be discussed if risk [...] Jr., MD CHEMISTRY ORDERABLES Performing Organization Address City/[facility]/ZIP Code Phon e Number [address] LDL Cholesterol, Direct (08/07/2019 6:54 AM EST) athologist Signature LDL Chol 92 mg/dL [facility] Comment: Lowest Risk: <100 mg/dL Lower Risk: 100-129 mg/dL Borderline High Risk: 130-159 mg/dL High Risk: 160-189 mg/dL Very High Risk: >td=236 mg/dL Specimen Anatomical Collection Method Collection Time Receive d Time (Source) Location / / Volume Laterality Blood specimen 08/07/2019 6:54 AM 019 7:08 (specimen) EST AM EST Resulting Agency Comment Spec In Lab Jameel Garcia Jr., MD CHEMISTRY ORDERABLES Performing Organization Address City/[facility]/ZIP Code Phon e Number [address] Hemoglobin A1c (08/07/2019 6:54 AM EST) P athologist Signature Hemoglobin A1C 5.5 4.3 - 5.6 [facility] [...] Mellitus, Diabetes Care 2013; 36: Suppl. 1, F10-68 Est Avg Gluc 111 mg/dL [facility] LABORATORY Comment: eAG equivalents for HbA1c percentages: HbA1c(%) ?eAG(mg/dL) 6.0 ?126 6.5 ?140 7.0 ?154 7.5 ?169 8.0 ?183 8.5 ?197 9.0 ?212 9.5 ?226 10.0 ? 240 Limitations: The eAG calculation has not been validated on women, individuals below 18 years old and above 70 years old, and individuals with hemoglobinopathies. Additional resources are available on [facility] ADA website. Edinson GRISSOM, Nathaniel J, Ari R, et al. ??Tr anslating the A1C assay into estimated average glucose values. ??Diabetes Care 2008:31(8):6226-9394. Specimen Anatomical Collection Method Collection Time Receive d Time (Source) Location / / Volume Laterality Blood specimen 08/07/2019 6:54 AM 019 7:08 (specimen) EST AM EST Resulting Agency Comment Spec In Lab Jameel Garcia Jr., MD CHEMISTRY ORDERABLES Performing Organization Address City/State/ZIP Code Phon e Number [place] [phone] EKG 12 Lead (08/06/2019 8:13 PM EST) Component Value Ref Range Test Analysis Performed Pathologis t Method Time At Signature Ventricular rate 69 BPM MUSE SYSTEM Atrial Rate 69 BPM MUSE SYSTEM P-R Interval 162 ms MUSE SYSTEM QRS Duration 90 ms MUSE SYSTEM Q-T Interval 388 ms MUSE SYSTEM QTC Calculated 415 ms MUSE SYSTEM (Bezet) Calculated P [place] 76 degrees MUSE SYSTEM Calculated R [place] 78 degrees MUSE SYSTEM Calculated T [place] 33 degrees MUSE SYSTEM INTERPRETATION Normal sinus [...] e number below. ? Electronically signed by: Iraj Wood [facility] ([phone]), at 08/06/2019 5:40 PM Narrative 08/06/2019 5:40 PM EST EXAMINATION: MRI [...] contact e number below. Electronically signed by: Iraj Wood [facility] ([phone]), at 08/06/2019 5:40 PM Jameel Garcia Jr., MD IMG MRI ORDERABLES [...]
Routine documented in this encounter Care Teams Cattle Sorter Relationship Specialty Start Date End Date Anna Mullen MD PCP - General 12/03/10 [address] [place] [address] documented as of this encounter
--- OUTSIDE RECORDS SUMMARY | 2022-04-04 00:44 | XMS_ITS | Encounter Summary ---
:1965 Author Organization [facility] [employer] [place] [address] Care Team Providers Name Role Phone Anna Mullen MD Primary Care Provider Encounter Details Date Type Department Care Team Description 02/14/2019 Laboratory Appointment Lab 3L [facility] Pancreas replaced by [facility] [place] [id number] Social History Tobacco Use Types Packs/Day Years [...] (ABNORMAL) Differential, Automated (02/14/2019 9:03 AM EDT) [facility] gist Method Time Signature Neutrophils % 43.5 % [facility] LABORATORY Neutr Abs (ANC) 3.61 1.70 - [facility] 6.10 [facility] x10(3)/[facility] LABORATORY Lymphocytes % 45.8 % [facility]OR[facility] Lymphocytes Abs 3.8 (H) 0.9 - 3.2 [facility] x10(3)/[facility] LABORATORY Monocytes % 7.3 % [facility] Monocyte Abs 0.6 0.3 - 0.9 [facility] x10(3)/[facility] LABORATORY Eosinophils % 2.0 % [facility] Eosinophils Abs 0.2 0.0 - 0.4 [facility] x10(3)/[facility] LABORATORY Basophils % 0.8 % [facility]OR[facility] Basophils Abs 0.1 0.0 - 0.1 [facility] x10(3)/[facility] LABORATORY Immature Gran % 0.60 % [facility] Comment: Immature granulocytes(IG's)percentage an d absolute count will include metamyelocytes, myelocytes, and promyelo cytes. Blood smears from CBCs yielding IG's will be scanned manually for concor dance. If this scan disagrees with the automated IG or if promyelocytes are not ed, a manual differential will be performed. Kym Gran Abs 0.05 (H) 0.00 - 0.04 x10(3)/[facility] LABORATORY Specimen Anatomical Collection Method Collection Time Receive d Time (Source) Location / / Volume Laterality Blood specimen 02/14/2019 9:03 AM 019 9:11 (specimen) EDT AM EDT Resulting Agency Comment Spec In Lab Eriberto Melgar MD HEMATOLOGY ORDERABLES Performing Organization Address City/State/ZIP Code Phon e Number [place] [id number] (ABNORMAL) Hemogram (02/14/2019 9:03 AM EDT) Analysis Performed At Patho logist Time Signature WBC 8.3 4.0 - 9.5 [facility] x10(3)/[facility] LABORATORY RBC 4.54 (L) 4.58 - [facility] 5.54 [facility] x10(6)/[facility] LABORATORY Hemoglobin 14.2 13.7 - [facility] 16.5 gm/dL [facility] LABORATORY Hematocrit 42.3 40.5 - [facility] 48.5 % [facility] LABORATORY MCV 93.2 (H) 82.9 - [facility] 93.1 fL [facility] LABORATORY MCH 31.3 27.5 - [facility] 32.1 pg [facility] LABORATORY MCHC 33.6 32.0 - [facility] 35.7 gm/dL [facility] LABORATORY Platelets 232 145 - 357 [facility] x10(3)/[facility] LABORATORY RDWSD 44.8 36.0 - [facility] 45.0 [facility] LABORATORY RDWCV 13.2 11.4 - [facility] 13.8 % [facility] LABORATORY MPV 9.9 7.6 - 12.9 [facility] LABORATORY nRBC % Auto 0.0 % [facility] LABORATORY nRBC Abs Auto 0.000 0.000 - [facility] 0.000 [facility] x10(3)/[facility] LABORATORY Specimen Anatomical Collection Method Collection Time Receive d Time (Source) Location / / Volume Laterality Blood specimen 02/14/2019 9:03 AM 019 9:11 (specimen) EDT AM EDT Resulting Agency Comment Spec In Lab Eriberto Melgar MD HEMATOLOGY ORDERABLES Performing Organization Address City/[facility]/ZIP Code Phon e Number [address] Amylase (02/14/2019 9:03 AM EDT) P athologist Signature Amylase 58 28 - 100 [facility] unit/L [facility] LABORATORY Specimen Anatomical Collection Method Collection Time Receive d Time (Source) Location / / Volume Laterality Blood specimen 02/14/2019 9:03 AM 019 9:11 (specimen) EDT AM EDT Resulting Agency Comment Spec In Lab Eriberto Melgar MD CHEMISTRY ORDERABLES Performing Organization Address City/[facility]/[place] [address] Cholesterol, total (02/14/2019 9:03 AM EDT) P athologist Signature Chol, Total 146 mg/dL [facility] LABORATORY Comment: Lower Risk: <200 mg/dL Average Risk: 200-239 mg/dL Higher Risk: >fc=442 mg/dL Lipid Interpretation See Note [facility] LABORATORY Comment: Lipid management should be guided by a p atient? s ASCVD risk, goals and preferences. ACC/AHA Guidelines recommend high intens ity statin if clinical ASCVD or LDL greater than or equal to 190 mg/dL. http://tinyurl.com/XKQ-LSF-Csxryttkw Adults aged 40-75 with LDL 70-189 mg/dL should have their 10 year ASCVD risk estimated with the ACC/AHA ASCVD risk es timator http://tools.acc.org/AWSEV-Hxgy-Hnjekfuz r/ Statin should be discussed if risk [...] Address City/State/ZIP [place] [address] (ABNORMAL) Comprehensive metabolic panel (non-fasting) (02/14/2019 9:03 AM EDT) P athologist Signature Glucose Lvl 103 65 - 199 [facility] mg/dL [facility] LABORATORY Comment: Diabetes: >=200 mg/dL plus symp toms BUN 14 10 - 20 mg/dL [facility] LABORATORY Creatinine 0.98 0.80 - 1.50 mg/dL [facility] LABORATORY Sodium 133 (L) 135 [...] mmol/L [facility] LABORATORY Anion Gap 8 5 - 15 mmol/L [facility] LABORATORY Calcium 9.3 8.5 - 10.5 mg/dL [facility] LABORAT[facility] Total Protein 7.5 6.1 - 8.0 gm/dL [facility] LABORATORY Albumin 4.6 3.2 - 5.2 gm/dL [facility]OR[facility] AST 30 0 - 39 unit/L [facility] LABORATORY ALT 31 0 - 55 unit/L [facility] LABORATORY Alk Phos 105 40 - 120 unit/L [facility]OR[facility] Total Bilirubin 1.1 0.2 - 1.3 mg/dL [facility] LABORATORY Estimated GFR 89 >=60 mL/min/1.73 m?? [facility]OR[facility] Comment: The eGFR was calculated using the CKD-EP I equation. As with all creatinine based estimates of kidney function, eGFR values calculated with the CKD-EPI equation are not accurate in patients wi th acute kidney failure, extremes of body mass or the acutely ill. http://[employer]/[facility] – GUTHRIEnkf eGFR 103 >=60 mL/min/1.73 m?? [facility] LABOR[facility] Comment: The eGFR was calculated using the CKD-EP I equation. As with all creatinine based estimates of kidney function, eGFR values calculated with the CKD-EPI equation are not accurate in patients wi th acute kidney failure, extremes of body mass or the acutely ill. http://[employer]/DHnkf Specimen Anatomical Collection Method Collection Time Receive d Time (Source) Location / / Volume Laterality Blood specimen 02/14/2019 9:03 AM 019 9:11 (specimen) EDT AM EDT Resulting Agency Comment Spec In Lab Eriberto Melgar MD CHEMISTRY ORDERABLES Performing Organization Address City/State/ZIP [place] [address] Lipase (02/14/2019 9:03 AM EDT) athologist Signature Lipase 20 0 - 60 [facility] unit/L [facility] LABORATORY Specimen Anatomical Collection Method Collection Time Receive d Time (Source) Location / / Volume Laterality Blood specimen 02/14/2019 9:03 AM 019 9:11 (specimen) EDT AM EDT Resulting Agency Comment Spec In Lab Eriberto Melgar MD CHEMISTRY ORDERABLES Performing Organization Address City/[facility]/ZIP Code Phon e Number [address] Magnesium (02/14/2019 9:03 AM EDT) P athologist Signature Magnesium 0.76 0.69 - 1.07 [facility] mmol/L [facility] LABORATORY Specimen Anatomical Collection Method Collection Time Receive d Time (Source) Location / / Volume Laterality Blood specimen 02/14/2019 9:03 AM 019 9:11 (specimen) EDT AM EDT Resulting Agency Comment Spec In Lab Eriberto Melgar MD CHEMISTRY ORDERABLES Performing Organization Address City/[facility]/ZIP Code Phon e Number [address] Phosphorus (02/14/2019 9:03 AM EDT) P athologist Signature Phosphorus 2.6 2.5 - 4.5 [facility] mg/dL [facility] LABORATORY Specimen Anatomical Collection Method Collection Time Receive d Time (Source) Location / / Volume Laterality Blood specimen 02/14/2019 9:03 AM 019 9:11 (specimen) EDT AM EDT Resulting Agency Comment Spec In Lab Eriberto Melgar MD CHEMISTRY ORDERABLES Performing Organization Address City/[facility]/ZIP Code Phon e Number [address] Protein/Creatinine Ratio, urine (02/14/2019 9:03 AM EDT) P athologist Signature U Creatinine 21 mg/dL [facility] LABOR[facility] U Protein Ran <6 0 - 12 [facility] mg/dL [facility] LAB[facility]ORY Prot/Cre Ratio <0.3 ratio [facility]OR[facility] Specimen Anatomical Collection Method Collection Time Receive d Time (Source) Location / / Volume Laterality Urine specimen 02/14/2019 9:03 AM 019 9:08 (specimen) EDT AM EDT Resulting Agency Comment Spec In Lab Eriberto Melgar MD URINE ORDERABLES Performing Organization Address City/[facility]/[place] [address] Reticulocyte Count (02/14/2019 9:03 AM EDT) athologist Signature Retic Ct % 1.3 0.7 - 2.6 [facility] LABORATORY Retic Ct Abs 0.060 0.030 - [facility] 0.120 [facility] x10(6)/[facility] LABORATORY Immature Retic% 4.1 0.0 - 15.6 [facility] LABORATORY Reticulated Hgb 36.1 31.3 - [facility] 40.2 [facility] LABORATORY Specimen Anatomical Collection Method Collection Time Receive d Time (Source) Location / / Volume Laterality Blood specimen 02/14/2019 9:03 AM 019 9:11 (specimen) EDT AM EDT Resulting Agency Comment Spec In Lab Eriberto Melgar MD HEMATOLOGY ORDERABLES Performing Organization Address City/[facility]/[place] [address] Tacrolimus level (02/14/2019 9:03 AM EDT) P athologist Signature Tacrolimus Lvl 8.0 ng/mL [facility]ORAT[facility] Comment: Trough therapeutic: ??5-15 ng/mL Performed by ultra-performance liquid ch romatography tandem mass spectrometry (UPLCMS/MS). This test was developed and its performa nce characteristics determined by [facility]. It has not been [...] Address City/State/ZIP Code Phon e Number [address] Uric acid (02/14/2019 9:03 AM EDT) P athologist Signature Uric Acid 7.1 3.5 - 8.5 [facility] mg/dL [facility] LABORATORY Specimen Anatomical Collection Method Collection Time Receive d Time (Source) Location / / Volume Laterality Blood specimen 02/14/2019 9:03 AM 019 9:11 (specimen) EDT AM EDT Resulting Agency Comment Spec In Lab Eriberto Melgar MD CHEMISTRY ORDERABLES Performing Organization Address City/[facility]/ZIP Code Phon e Number [address] Urinalysis with reflex Culture (02/14/2019 9:03 AM EDT) Patholo gist Method Time Signature Glucose UA Negative Negative [facility] mg/dL [facility] Protein UA Negative Negative [facility] mg/dL [facility] Bilirubin UA Negative Negative [facility] mg/dL [facility] Comment: Clinical correlation required for positi ve Urine Bilirubin results as false positive may occur with some drugs and d rug related products. If a false positive is suspected a serum total bili sinha should be considered if clinically indicated. Urobilinogen UA Normal Normal mg/dL [facility] LABOR[facility] pH UA 7.0 5.0 - 8.0 [facility] LAB[facility] Blood UA Negative Negative mg/dL [facility] Ketones UA Negative Negative mg/dL [facility] Nitrite UA Negative Negative [facility] LABORATORY Leukocytes UA Negative Negative [facility] LABORATORY Appearance UA Clear Clear [facility] LABORATORY Spec [place] UA 1.004 1.002 - 1.030 [facility] LABORATORY Color UA Straw Yellow [facility] LABORATORY Culture Reflexed No [facility] LABOR[facility]ORY Specimen (Source) Anatomical Collection Method Collection Time Re ceived Time Location / / Volume Laterality Urine specimen 02/14/2019 9:03 02/14/2019 9:08 obtained by clean AM EDT AM EDT catch procedure (specimen) Resulting Agency Comment Spec In Lab Eriberto Melgar MD URINE ORDERABLES Performing Organization Address City/State/ZIP [place] [address] Hemoglobin A1c (02/14/2019 9:03 [...] 1, S67-74 Est Avg Gluc 105 mg/dL [facility] LABORATORY Comment: eAG equivalents for [...] into estimated average glucose values. ??Diabetes Care 2008:31(8):4667-6040. 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
--- OUTSIDE RECORDS SUMMARY | 2022-04-04 00:44 | XMS_ITS | Encounter Summary ---
:1965 Author Organization [facility] [place] [address] Care Team Providers Name Role Phone Anna Mullen MD Primary Care Provider Encounter Details Date Type Department Care Team Description 02/07/2020 Telephone Solid Organ [place]plant [place] [address] Social History Tobacco Use Types Packs/Day Years Used Date Never Smoker Smokeless Tobacco: Never Used Alcohol Use Standard Drinks/Week Comments No 0 (1 standard drink = 0.6 oz pure alcoho l) history of abuse, stopped 1996 Sex Assigned at Date Recorded Male 05/29/2021 11:28 PM EDT documented as of this encounter Miscellaneous Notes Telephone Encounter - Zoe Rosario RN - 02/07/2020 11:22 AM EDT Reason for call: I called pt to follow up from [facility] message concerned with ongoing lung issues, Verified patient does not need emergent care by assessing airway, breathing, circulation, and mentalwell being. Employee [] Household Member of Employee [] Healthcare Worker [] None of the above [x] Symptoms: One or more of the following: Cough: [] Shortness of breath: [x] Difficulty breathing: [x] (on excursion ONLY) Two or more of the following: Fever: [] Sore Throat: [] Muscle pain: [x] Chills: [] Head ache: [] New loss of taste or smell: [] Repeated shaking with chills: [] Other Symptoms: fatigue Symptom Onset: October had flu like illness breathing issues have persisted since that time Travel: no If yes, where: NA Known exposure to COVID-19 positive person: unknown - boss came back from [facility] in October with flu like illness and came to work Test: yes If ordering test, ordering PCP: Eriberto Melgar MD Informed patient to follow CDC guidelines for Covid 19. Advised patient to seek medical advice from PCP in the event symptoms become worse. Advised to seek emergency care for difficulty breathing or chest pain. documented in this encounter Plan of Treatment Not on filedocumented as of this encounter Visit Diagnoses Not on filedocumented in this encounter Care Teams Assault Boat Coxswain Relationship Specialty Start Date End Date Anna Mullen MD PCP - General 12/03/10 [address] [place] [address] documented as of this encounter
--- OUTSIDE RECORDS SUMMARY | 2022-04-04 00:44 | XMS_ITS | Encounter Summary ---
:1965 Author Organization [facility] [place] [address] Care Team Providers Name Role Phone Anna Mullen MD Primary Care Provider Encounter Details Date Type Department Care Team Description 12/01/2019 Abstract [facility] at [facility] [place] [address] [place] [address] [phone] (Wo rk) Social History Tobacco Use Types [...] on filedocumented in this encounter Care Teams Balloon Artist Relationship Specialty Start Date End Date Anna Mullen MD PCP - General 12/03/10 [address] [place] [address] documented as of this encounter
--- OUTSIDE RECORDS SUMMARY | 2022-04-04 00:44 | XMS_ITS | Encounter Summary ---
:1965 Author Organization [facility] [place] [address] Care Team Providers Name Role Phone Anna Mullen MD Primary Care Provider Reason for Visit Reason Comments Medication Refill Encounter Details Date Type Department Care Team Description 02/06/2020 Ref[facility] [place] [address] [place] [address] [phone] (Wo rk) Social History Tobacco Use Types [...] on filedocumented in this encounter Care Teams Apigee Developer Relationship Specialty Start Date End Date Anna Mullen MD PCP - General 12/03/10 [address] [place] [address] documented as of this encounter
--- OUTSIDE RECORDS SUMMARY | 2022-04-04 00:44 | XMS_ITS | Encounter Summary ---
:1965 Author Organization [facility] [place] [address] Care Team Providers Name Role Phone Anna Mullen MD Primary Care Provider Encounter Details Date Type Department Care Team Description 12/23/2019 Abstract [facility] Trans[facility] at [facility] [place] [address] [place] [address] [phone] (Wo rk) Social History Tobacco Use Types [...] on filedocumented in this encounter Care Teams Furnace Filler Relationship Specialty Start Date End Date Anna Mullen MD PCP - General 12/03/10 [address] [place] [address] documented as of this encounter
--- OUTSIDE RECORDS SUMMARY | 2022-04-04 00:44 | XMS_ITS | Encounter Summary ---
:1965 Author Organization [facility] [place] [address] Care Team Providers Name Role Phone Anna Mullen MD Primary Care Provider Encounter Details Date Type Department Care Team Description 09/08/2019 Office Visit Neurology at [facility] Ni Child, Ischemic stroke; [facility] CASH PROCESSOR Stroke-like symptoms; Drive [facility] [place] [address] Neurology Dept [phone] [place], [place] [address] Social History Tobacco Use Types [...] in this encounter Progress Notes Ni Almanzar, CASH PROCESSOR - 09/08/2019 3:00 PM EST Cerebrovascular Disease and Stroke Program [place] [address] t: [phone] / f: [phone] IMPACT Improving Post-Acute Care Transitions after Stroke [...] depression, gastroparesis, migraines, hypothyroidism who presented to [facility] for slurred speech and some ataxia, as [...] pharmacy ?? Pt verbalized understanding and will pick pulling machine tender the medication and stop the ASA Interval [...] be coordinated closer to hiswork in the [facility]. Patient Active Problem List Diagnosis Code ??? 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
--- OUTSIDE RECORDS SUMMARY | 2022-04-04 00:44 | XMS_ITS | Encounter Summary ---
:1965 Author Organization [facility] [place] [address] Care Team Providers Name Role Phone Anna Mullen MD Primary Care Provider Encounter Details Date Type Department Care Team Description 08/07/2019 Telephone Neurology at [facility] Sloane Penn MD [facility] [place] [address] NEUROLOGY DEPT [phone] [place], [place] [address] (Wo rk) Social History Tobacco [...] precautions / worrying symptoms discussed with patient Solane Penn MD Neurology, PGY3 Personal Pager #[phone] 08/07/2019 N.B. Since we have not evaluated this patient, this is not an official consultation and we are not stating that a specific treatment decision is correct or incorrect. documented in this encounter Plan of Treatment Not on filedocumented as of this encounter Visit Diagnoses Not on filedocumented in this encounter Care Teams Livestock Nutritionist Relationship Specialty Start Date End Date Anna Mullen MD PCP - General 12/03/10 [address] [place] [address] documented as of this encounter
--- OUTSIDE RECORDS SUMMARY | 2022-04-04 00:44 | XMS_ITS | Encounter Summary ---
:1965 Author Organization [facility] [place] [address] Care Team Providers Name Role Phone Anna Mullen MD Primary Care Provider Encounter Details Date Type Department Care Team Description 02/07/2020 Telephone Public [facility] Ni Vazquez, [facility] [place] [address] Social History Tobacco Use Types Packs/Day [...] patient. Ordering provider: Eriberto Melgar MD Facility: [facility] Date of Testin02/07/2020 Time of Testin:55 PM Symptoms: Muscle aches, Chest tightness for 4 months (October), SOB, Intermittent cough Remote history of Pancreas transplant Diabetic See public health nurse triage note for additional information documented in this encounter Plan of Treatment Not on filedocumented as of this encounter Visit Diagnoses Not on filedocumented in this encounter Care Teams Contract Associate Manager Relationship Specialty Start Date End Date Anna Mullen MD PCP - General 12/03/10 [address] [place] [address] documented as of this encounter
--- OUTSIDE RECORDS SUMMARY | 2022-04-04 00:44 | XMS_ITS | Encounter Summary ---
:1965 Author Organization [facility] [place] [address] Care Team Providers Name Role Phone Anna Mullen MD Primary Care Provider Encounter Details Date Type Department Care Team Description 08/17/2019 Office Visit Solid Organ Bernardo Melgar organ transplant; Transplant at [facility] Eriberto Stoddard MD 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; [facility] pression; [facility] Cerebrovascular accident (CVA), unspecif ied mechanism [place], [place] TRANSPLANT [phone] SURGERY [phone] [place], [place] [address] Social History Tobacco Use Types [...] EST Transplant Medicine Follow Up Reese Hsu [id number] ?? Transplant ID: Date: 08/17/2019 Patient: Reese Hsu Transplant Date: 08/28/2013 Organ(s) Pancreas [place] organ diagnosis: Diabetes Mellitus - Type I [...] for diabetics, every 5 for non diabetics [place] kidney ultrasound looking for renal cell CA, [...] DIAGNOSTIC performed by Anna Rapp MD at [facility] ENDOSCOPY ??? PRO TRANSPLANT ALLOGRAFT PANCREAS ?? 08/28/2013 ?? @PANCREATIC TRANSPLANT performed by Iraj Keller MD at [facility] OR ??? PRO TRANSPLANT, PREP DONOR PANCREAS ?? 08/28/2013 ?? @PREPARATION CADAVERIC PANCREAS, STANDARD performed by Iraj Keller MD at [facility] OR ??? PRO UNLISTED PROCEDURE, MUSCULOSKELETAL SYSTEM, GENERAL ?? 10 years ?? carpel tunnel ??? PRO UPPER GI ENDOSCOPY, BIOPSY ?? 12/31/2011 ?? UPPER GASTROINTESTINAL ENDOSCOPY,WITH BIOPSY SINGLE OR MULTIPLE performed by CLAYTON BHAKTA at [facility] ENDOSCOPY ??? PRO UPPER GI ENDOSCOPY, BIOPSY N/A 08/15/2015 ?? EGD WITH BIOPSY performed by Clayton Bhakta MD at [facility] ENDOSCOPY ??? SHOULDER SURGERY ? UPPER GI ENDOSCOPY, EXAM ?? 12/31/2011 ?? UPPER GI ENDOSCOPY performed by CLAYTON BHAKTA at [facility] ENDOSCOPY ?? Current Outpatient Medications: [...] from 08/17/2019 in Solid Organ Transplant at [facility] Weight 95.6 kg (210 lb 12.8 oz) [...] UA Latest Ref Range: Clear Clear Spec [place] UA Latest Ref Range: 1.002 - 1.030 [...] 30 minutes in direct face to face litigation counsel. Follow-up: 6 months Labs quarterly. documented in this encounter Plan of Treatment Not on filedocumented as of this encounter Results Magnesium, urine, random (08/17/2019 10:05 AM EST) P athologist Signature U Mg Ran 0.83 mmol/L [facility] Specimen Anatomical Collection Method Collection Time Receive d Time (Source) Location / / Volume Laterality Urine specimen 08/17/2019 10:05 9 (specimen) AM EST 10:12 AM EST Resulting Agency Comment Spec In Lab Eriberto Melgar MD URINE ORDERABLES Performing Organization Address City/State/[place] [address] Phosphorus, urine, random (08/17/2019 10:05 AM EST) P athologist Signature U Phosphorus 18.1 mg/dL [facility] Specimen Anatomical Collection Method Collection Time Receive d Time (Source) Location / / Volume Laterality Urine specimen 08/17/2019 10:05 9 (specimen) AM EST 10:12 AM EST Resulting Agency Comment Spec In Lab Eriberto Melgar MD URINE ORDERABLES Performing Organization Address City/[facility]/ZIP Code Phon e Number [address] Calcium Creatinine Ratio, random urine (08/17/2019 10:05 AM EST) P athologist Signature U Calcium 1.7 mg/dL [facility] U Creatinine 35 mg/dL [facility] Ca/Cre Ratio 0.05 ratio [facility] Specimen Anatomical Collection Method Collection Time Receive d Time (Source) Location / / Volume Laterality Urine specimen 08/17/2019 10:05 9 (specimen) AM EST 10:12 AM EST Resulting Agency Comment Spec In Lab Eriberto Melgar MD URINE ORDERABLES Performing Organization Address City/[facility]/ZIP Code Phon e Number [address] Creatinine, urine, random (08/17/2019 10:05 AM EST) P athologist Signature U Creatinine 35 mg/dL [facility] Specimen Anatomical Collection Method Collection Time Receive d Time (Source) Location / / Volume Laterality Urine specimen 08/17/2019 10:05 9 (specimen) AM EST 10:12 AM EST Resulting Agency Comment Spec In Lab Eriberto Melgar MD URINE ORDERABLES Performing Organization Address City/[facility]/ZIP Code Phon e Number [address] Protein/Creatinine Ratio, urine (08/17/2019 10:05 AM EST) P athologist Signature U Creatinine 35 mg/dL [facility] U Protein Ran <6 0 - 12 [facility] mg/dL [facility] Prot/Cre Ratio <0.1 ratio [facility] Specimen Anatomical Collection Method Collection Time Receive d Time (Source) Location / / Volume Laterality Urine specimen 08/17/2019 10:05 9 (specimen) AM EST 10:12 AM EST Resulting Agency Comment Spec In Lab Eriberto Melgar MD URINE ORDERABLES Performing Organization Address City/[facility]/ZIP Code Phon e Number [address] Urinalysis with reflex Culture (08/17/2019 10:05 AM EST) [facility] Method Time Signature Glucose UA Negative Negative [facility] mg/dL [facility] Protein UA Negative Negative [facility] mg/dL [facility] Bilirubin UA Negative Negative [facility] mg/dL [facility] Comment: Clinical correlation required for positi ve Urine Bilirubin results as false positive may occur with some drugs and d rug related products. If a false positive is suspected a serum total bili sinha should be considered if clinically indicated. Urobilinogen UA Normal Normal mg/dL [facility] pH UA 6.5 5.0 - 8.0 [facility] Blood UA Negative Negative mg/dL [facility] Ketones UA Negative Negative mg/dL [facility] Nitrite UA Negative Negative [facility] Leukocytes UA Negative Negative [facility]ATORY Appearance UA Clear Clear [facility] Spec [place] UA 1.008 1.002 - 1.030 [facility] Color UA Yellow Yellow [facility] Culture Reflexed No [facility] Specimen (Source) Anatomical Collection Method Collection Time Re ceived Time Location / / Volume Laterality Urine specimen 08/17/2019 10:05 9 obtained by clean AM EST 10:[address] catch procedure (specimen) Resulting Agency Comment Spec In Lab Eriberto Melgar MD URINE ORDERABLES Performing Organization Address City/[facility]/ZIP Code Phon e Number [address] BKV Quant Blood (08/17/2019 9:54 AM EST) Component Value Ref Test Analysis Performed At [facility] Range Method Time Signature BKV Blood Not Detected [facility] BKV Blood BK Virus Plasma Result Interpretation [facility] Result: BK Virus not detected HOSPITAL Specimen type: plasma LABORATO RY Assay Range: 2.80-7.80 log copies/mL (6.28x10^2 - 6.28x10^7 copies/mL) Methods: Quantitative real-time polymerase chain react ion (PCR) of viral DNA isolated from plasma was performed using Cigital BKV analyte-specific reagents and the KeVita System that automates both nucleic a deepak [...] acteristics determined by the Clinical Genomics and [employer] Technology (CGAT) Laboratory at [facility]. It has not been cleared or approved [...] Organization Address City/State/[place] [address] Tacrolimus level (08/17/2019 9:54 AM EST) athologist Signature Tacrolimus Lvl 6.0 ng/mL [facility] Comment: Trough therapeutic: ??5-15 ng/mL Performed by ultra-performance liquid ch romatography tandem mass spectrometry (UPLCMS/MS). This test was developed and its performa nce characteristics determined by [facility] It has not been cleared [...] CHEMISTRY ORDERABLES Performing Organization Address City/[facility] Code Phon e Number [address] Lavender Tube HOLD (08/17/2019 9:54 AM EST) Patholo gist Method Time Signature Lavender Hold Sample in [facility] Specimen Anatomical Collection Method Collection Time Receive d Time (Source) Location / / Volume Laterality Blood specimen 08/17/2019 9:54 AM 019 (specimen) EST 10:01 AM EST Eriberto Melgar MD HEMATOLOGY ORDERABLES Performing Organization Address [facility] Phon e Number [address] Gold Tube HOLD (08/17/2019 9:54 AM EST) P athologist Signature Gold Hold Sample in [facility] Specimen Anatomical Collection Method Collection Time Receive d Time (Source) Location / / Volume Laterality Blood specimen 08/17/2019 9:54 AM 019 (specimen) EST 10:01 AM EST Eriberto Melgar MD CHEMISTRY ORDERABLES Performing Organization Address City/[facility] [place] [address] Lipase (08/17/2019 9:54 AM EST) P athologist Signature Lipase 25 0 - 60 [facility] unit/L [facility] Specimen Anatomical Collection Method Collection Time Receive d Time (Source) Location / / Volume Laterality Blood specimen 08/17/2019 9:54 AM 019 (specimen) EST 10:01 AM EST Resulting Agency Comment Spec In Lab Eriberto Melgar MD CHEMISTRY ORDERABLES Performing Organization Address City/[facility] Code Phon e Number [address] Amylase (08/17/2019 9:54 AM EST) athologist Signature Amylase 64 28 - 100 [facility] unit/L [facility] Specimen Anatomical Collection Method Collection Time Receive d Time (Source) Location / / Volume Laterality Blood specimen 08/17/2019 9:54 AM 019 (specimen) EST 10:01 AM EST Resulting Agency Comment Spec In Lab Eriberto Melgar MD CHEMISTRY ORDERABLES Performing Organization Address City/State/ZIP Code Phon e Number [address] Hemoglobin A1c (08/17/2019 9:54 [...] Mellitus, Diabetes Care 2013; 36: Suppl. 1, V92-18 Est Avg Gluc 110 mg/dL [facility] Comment: eAG equivalents for HbA1c percentages: HbA1c(%) ?eAG(mg/dL) 6.0 ?126 6.5 ?140 7.0 ?154 7.5 ?169 8.0 ?183 8.5 ?197 9.0 ?212 9.5 ?226 10.0 ? 240 Limitations: The eAG calculation has not been validated on women, individuals below 18 years old and above 70 years old, and individuals with hemoglobinopathies. Additional resources are available on [facility] website. Edinson GRISSOM, Nathaniel J, Ari R, et al. ??Tr anslating the A1C assay into estimated average glucose values. ??Diabetes Care 2008:31(8):3508-6788. Specimen Anatomical Collection Method Collection Time Receive d Time (Source) Location / / Volume Laterality Blood specimen 08/17/2019 9:54 AM 019 (specimen) EST 10:01 AM EST Resulting Agency Comment Spec In Lab Eriberto Melgar MD CHEMISTRY ORDERABLES Performing Organization Address City/State/[place] [address] Lipid Panel (Reflex Direct LDL) (08/17/2019 9:54 AM EST) P athologist Signature Chol, Total 124 mg/dL [facility] Comment: Lower Risk: <200 mg/dL Average Risk: 200-239 mg/dL Higher Risk: >my=933 mg/dL Triglycerides 139 mg/dL [facility] Comment: Average Risk/Lower Risk: <150 mg/dL Borderline High Risk: 150-199 mg/dL High Risk: 200-499 mg/dL Very High Risk: >qw=756 mg/dL HDL 46 mg/dL [facility] Comment: Males: ?? Higher Risk: <40 mg/dL Females: ?? HIgher Risk: <50 mg/dL LDL Cholesterol 50 mg/dL [facility] Comment: Lowest Risk: <100 mg/dL Lower Risk: 100-129 mg/dL Borderline High Risk: 130-159 mg/dL High Risk: 160-189 mg/dL Very High Risk: >cl=504 mg/dL Chol/HDL Ratio 2.7 ratio [facility] Lipid Interpretation See Note [facility] Comment: Lipid management should be guided by a p atient? s ASCVD risk, goals and preferences. ACC/AHA Guidelines recommend high intens ity statin if clinical ASCVD or LDL greater than or equal to 190 mg/dL. [email or web address]/[email or web address]-GRI-[email or web address] Adults aged 40-75 with LDL 70-189 mg/dL should have their 10 year ASCVD risk estimated with the ACC/AHA ASCVD risk es timator http://tools.acc.org/BWJQT-Iiva-Oadqjjdh r/ Statin should be discussed if risk [...] Organization Address City/State/[place] [address] 1,25-dihydroxycholecalciferol (08/17/2019 9:54 AM EST) athologist Signature Vit D 1,25 40 18 - 64 [facility] pg/mL [facility] Comment: ADDITIONAL INFORMATIO N This test was developed and its performa nce characteristics determined by [facility] in a manner co nsistent with CLIA requirements. This test has not been gene ared or approved by the U.S. Food and Drug Administration. Test Performed by: [facility] [address] [address] 982 Necktie Operator Pockets And Pieces: Dung Buenrostro M.D. Ph. D.; [facility]# [id number] Specimen Anatomical Collection Method Collection Time Receive d Time (Source) Location / / Volume Laterality Blood specimen 08/17/2019 9:54 AM 019 (specimen) EST 10:44 AM EST Resulting Agency Comment Spec In Lab Eriberto Melgar MD CHEMISTRY ORDERABLES Performing Organization Address City/State/ZIP Code Phon e Number [address] Vitamin D, 25-Hydroxy (08/17/2019 9:54 AM EST) P athologist Signature 25-OH Vit D 68 30 - 100 TIFFANI RAMONA Total ng/mL [facility] Comment: As of 2019, 25-hydroxyvitamin D charles ting has moved from the [employer] to the [employer]. No substantial change in me asured values is expected. Specimen Anatomical Collection Method Collection Time Receive d Time (Source) Location / / Volume Laterality Blood specimen 08/17/2019 9:54 AM 019 (specimen) EST 10:01 AM EST Resulting Agency Comment Spec In Lab Eriberto Melgar MD CHEMISTRY ORDERABLES Performing Organization Address City/State/ZIP Code Phon e Number [address] PTH (08/17/2019 9:54 AM EST) P athologist Signature PTH 64 15 - 65 TIFFANI RAMONA pg/mL [facility] Specimen Anatomical Collection Method Collection Time Receive d Time (Source) Location / / Volume Laterality Blood specimen 08/17/2019 9:54 AM 019 (specimen) EST 10:01 AM EST Resulting Agency Comment Spec In Lab Eriberto Melgar MD CHEMISTRY ORDERABLES Performing Organization Address City/State/ZIP Code Phon e Number [address] Uric acid (08/17/2019 9:54 AM EST) P athologist Signature Uric Acid 6.3 3.5 - 8.5 TIFFANI RAMONA mg/dL [facility] Specimen Anatomical Collection Method Collection Time Receive d Time (Source) Location / / Volume Laterality Blood specimen 08/17/2019 9:54 AM 019 (specimen) EST 10:01 AM EST Resulting Agency Comment Spec In Lab Eriberto Melgar MD CHEMISTRY ORDERABLES Performing Organization Address City/[facility]/ZIP Code Phon e Number [address] Magnesium (08/17/2019 9:54 AM EST) P athologist Signature Magnesium 0.77 0.69 - 1.07 [facility] mmol/L [facility] Specimen Anatomical Collection Method Collection Time Receive d Time (Source) Location / / Volume Laterality Blood specimen 08/17/2019 9:54 AM 019 (specimen) EST 10:01 AM EST Resulting Agency Comment Spec In Lab Eriberto Melgar MD CHEMISTRY ORDERABLES Performing Organization Address City/[facility]/ZIP Code Phon e Number [address] Phosphorus (08/17/2019 9:54 AM EST) P athologist Signature Phosphorus 2.7 2.5 - 4.5 [facility] mg/dL [facility] Specimen Anatomical Collection Method Collection Time Receive d Time (Source) Location / / Volume Laterality Blood specimen 08/17/2019 9:54 AM 019 (specimen) EST 10:01 AM EST Resulting Agency Comment Spec In Lab Eriberto Melgar MD CHEMISTRY ORDERABLES Performing Organization Address City/[facility]/Z[place] [address] (ABNORMAL) Comprehensive metabolic panel (non-fasting) (08/17/2019 9:54 AM EST) P athologist Signature Glucose Lvl 109 65 - 199 [facility] mg/dL [facility] Comment: Diabetes: >=200 mg/dL plus symp toms BUN 14 10 - 20 mg/dL [facility] Creatinine 1.05 0.80 - 1.50 mg/dL [facility] Sodium 133 (L) 135 - 145 mmol/L [facility] Potassium 4.2 3.5 - 5.0 mmol/L [facility] Comment: Please note: ??Patients with WBC >100,00 0 may have falsely elevated Potassium levels. ??For accurate Potassium quantif ication in these patients send serum separator tube (gold top) for subsequent determinations. ??Contact the Clinical Chemistry Laboratory if there are any qu estions. Chloride 97 (L) 98 - 107 mmol/L [facility] CO2 26 22 - 31 mmol/L [facility] Anion Gap 10 5 - 15 mmol/L [facility] Calcium 9.5 8.5 - 10.5 mg/dL [facility] Total Protein 7.5 6.1 - 8.0 gm/dL [facility] Albumin 4.4 3.2 - 5.2 gm/dL [facility] AST 24 0 - 39 unit/L [facility] ALT 22 0 - 55 unit/L [facility] Alk Phos 108 40 - 130 unit/L [facility] Total Bilirubin 0.8 0.2 - 1.3 mg/dL [facility] Estimated GFR 82 >=60 mL/min/1.73 m?? [facility] Comment: The eGFR was calculated using the CKD-EP I equation. As with all creatinine based estimates of kidney function, eGFR values calculated with the CKD-EPI equation are not accurate in patients wi th acute kidney failure, extremes of body mass or the acutely ill. http://[employer]-Doors/[facility] ADAnkf eGFR 95 >=60 mL/min/1.73 m?? [facility] Comment: The eGFR was calculated using the CKD-EP I equation. As with all creatinine based estimates of kidney function, eGFR values calculated with the CKD-EPI equation are not accurate in patients wi th acute kidney failure, extremes of body mass or the acutely ill. http://[employer]/[facility]kf Specimen Anatomical Collection Method Collection Time Receive d Time (Source) Location / / Volume Laterality Blood specimen 08/17/2019 9:54 AM 019 (specimen) EST 10:01 AM EST Resulting Agency Comment Spec In Lab Eriberto Melgar MD CHEMISTRY ORDERABLES Performing Organization Address City/[facility]/Z[place] [address] Reticulocyte Count (08/17/2019 9:54 AM EST) P athologist Signature Retic Ct % 1.4 0.7 - 2.6 [facility] Retic Ct Abs 0.070 0.030 - [facility] 0.120 [facility] x10(6)/[facility] LABORATORY Immature Retic% 4.7 0.0 - 15.6 [facility] K [facility] Reticulated Hgb 34.2 31.3 - [facility] 40.2 pg [facility] Specimen Anatomical Collection Method Collection Time Receive d Time (Source) Location / / Volume Laterality Blood specimen 08/17/2019 9:54 AM 019 (specimen) EST 10:01 AM EST Resulting Agency Comment Spec In Lab Eriberto Melgar MD HEMATOLOGY ORDERABLES Performing Organization Address City/[facility]/Z[place] [address] C-peptide (08/17/2019 9:54 AM EST) P athologist Signature C-Peptide 2.7 0.8 - 5.2 [facility] ng/mL [facility] Specimen Anatomical Collection Method Collection Time Receive d Time (Source) Location / / Volume Laterality Blood specimen 08/17/2019 9:54 AM 019 (specimen) EST 10:01 AM EST Resulting Agency Comment Spec In Lab Eriberto Melgar MD CHEMISTRY ORDERABLES Performing Organization Address City/[facility]/ZIP [place] [address] documented in this encounter Visit Diagnoses Diagnosis Aftercare following organ transplant 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
--- OUTSIDE RECORDS SUMMARY | 2022-04-04 00:44 | XMS_ITS | Encounter Summary ---
:1965 Author Organization [facility] [place] [address] Care Team Providers Name Role Phone Anna Mullen MD Primary Care Provider Encounter Details Date Type Department Care Team Description 11/03/2019 Ancillary Procedure Radiology Library at Kelley Mullen [facility] [address] [address] [place] [address] [phone] Social History Tobacco Use Types Packs/Day Years [...] Address City/State/ZIP Code Phon e Number RAD [place], [place] documented in this encounter Visit Diagnoses Not on filedocumented in this encounter Care Teams Clinical Recruiter Relationship Specialty Start Date End Date Anna Mullen MD PCP - General 12/03/10 [address] [place] [address] documented as of this encounter
--- OUTSIDE RECORDS SUMMARY | 2022-04-04 00:44 | XMS_ITS | Encounter Summary ---
:1965 Author Organization [facility] [place] [address] Care Team Providers Name Role Phone Anna Mullen MD Primary Care Provider Reason for Visit Reason Comments Medication Refill Encounter Details Date Type Department Care Team Description 05/04/2019 Refill Solid Organ Transplant at Eriberto Emery MD [facility] [place] [address] [place] [address] [phone] (Wo rk) Social History Tobacco Use Types [...] on filedocumented in this encounter Care Teams Chef Broiler Or Fry Relationship Specialty Start Date End Date Anna Mullen MD PCP - General 12/03/10 [address] [place], [place] [address] documented as of this encounter
--- OUTSIDE RECORDS SUMMARY | 2022-04-04 00:44 | XMS_ITS | Encounter Summary ---
:1965 [place] [address] Care Team Providers Name Role Phone Anna Mullen MD Primary Care Provider Encounter Details Date Type Department Care Team Description 08/06/2019 [facility] [place] [address] NEUROLOGY DEPT. [phone] [place], [place] [address] (Wo rk) Social History Tobacco [...] Address City/State/ZIP Code Phon e Number RAD [place], [place] documented in this encounter Visit Diagnoses Not on filedocumented in this encounter Care Teams Harnessmaker Relationship Specialty Start Date End Date Anna Mullen MD PCP - General 12/03/10 [address] [place] [address] documented as of this encounter
--- OUTSIDE RECORDS SUMMARY | 2022-04-04 00:44 | XMS_ITS | Encounter Summary ---
:1965 Author Organization [facility] [place] [address] Care Team Providers Name Role Phone Anna Mullen MD Primary Care Provider Encounter Details Date Type Department Care Team Description 08/06/2019 Telephone Neurology at [facility] Geoffrey Martinez MD [facility] [place] [address] NEUROLOGY DEPT. [phone] [place], [place] [address] (Wo rk) Social History Tobacco [...] and racemic epi and on arrival to [facility] had obvious slurred speech and some [...] filedocumented in this encounter Care Teams Aircraft Loadmaster Superintendent Relationship Specialty Start Date End Date Anna Mullen MD PCP - General 12/03/10 [address] [place] [address] documented as of this encounter
--- OUTSIDE RECORDS SUMMARY | 2022-04-04 00:44 | XMS_ITS | Encounter Summary ---
:1965 Author Organization [facility] [place] [address] Care Team Providers Name Role Phone Anna Mullen MD Primary Care Provider Encounter Details Date Type Department Care Team Description 08/30/2019 Orders Only Neurology at [facility] Geoffrey Martinez MD [facility] [place] [address] NEUROLOGY DEPT. [phone] [place], [place] [address] (Wo rk) Social History Tobacco [...] on filedocumented in this encounter Care Teams Patch Washer Relationship Specialty Start Date End Date Anna Mullen MD PCP - General 12/03/10 [address] [place], [place] [address] documented as of this encounter
--- OUTSIDE RECORDS SUMMARY | 2022-04-04 00:44 | XMS_ITS | Encounter Summary ---
:1965 Author Organization [facility] [place] [address] Care Team Providers Name Role Phone Anna Mullen MD Primary Care Provider Reason for Visit Reason Onset Date Comments Medication Refill 03/02/2019 Encounter Details Date Type Department Care Team Description 03/02/2019 Refill Solid Organ Transplant Peterson Ortez , Aftercare following at [facility] [place] [address] Social History Tobacco Use Types Packs/Day Years Used Date Never Smoker Smokeless Tobacco: Never Used Alcohol Use Standard Drinks/Week Comments No 0 (1 standard drink = 0.6 oz pure alcoho l) history of abuse, stopped 1996 Sex Assigned at Date Recorded Male 05/29/2021 11:28 PM EDT documented as of this encounter Miscellaneous Notes Telephone Encounter - Peterson Ortez RN - 03/02/2019 10:02 AM EDT Reviewed b/p readings from the past week with Dr Melgar. Need to increase lisinopril dosing and repeat b/p checks daily x1 week. Pt understands plan and will report back next week with b/p readings. documented in this encounter Plan of Treatment Not on filedocumented as of this encounter Visit Diagnoses Diagnosis Aftercare following organ transplant documented in this encounter Care Teams Loose Hand Packer Relationship Specialty Start Date End Date Anna Mullen MD PCP - General 12/03/10 [address] [place] [address] documented as of this encounter
--- OUTSIDE RECORDS SUMMARY | 2022-04-04 00:45 | XMS_ITS | Encounter Summary ---
:1965 Author Organization [facility] [place] [address] Care Team Providers Name Role Phone Anna Mullen MD Primary Care Provider Encounter Details Date Type Department Care Team Description 03/11/2018 Laboratory Appointment Lab [address] [facility] Pancreas replaced by [facility] [place] [id number] Social History Tobacco Use Types Packs/Day Years [...] with reflex Culture (03/11/2018 8:03 AM EDT) [facility] Method Time Signature Glucose UA Negative Negative [facility] mg/dL [facility] Protein UA Negative Negative [facility] mg/dL [facility] Bilirubin UA Negative Negative [facility] mg/dL [facility] Comment: Clinical correlation required for positi ve Urine Bilirubin results as false positive may occur with some drugs and d rug related products. If a false positive is suspected a serum total bili sinha should be considered if clinically indicated. Urobilinogen UA Normal Normal mg/dL [facility] pH UA 6.0 5.0 - 8.0 [facility] Blood UA Negative Negative mg/dL [facility] Ketones UA Negative Negative mg/dL [facility] Nitrite UA Negative Negative [facility] Leukocytes UA Negative Negative [facility] LABORATORY Appearance UA Clear Clear [facility] Spec Torreon UA 1.009 1.002 - 1.030 [facility] Color UA Yellow Yellow [facility] Culture Reflexed No [facility] Specimen (Source) Anatomical Collection Method Collection Time Re ceived Time Location / / Volume Laterality Urine specimen 03/11/2018 8:03 03/11/2018 8:12 obtained by clean AM EDT AM EDT catch procedure (specimen) Resulting Agency Comment Spec In Lab Eriberto Melgar MD URINE ORDERABLES Performing Organization Address City/[facility]/ZIP Code Phon e Number [address] Protein/Creatinine Ratio, urine (03/11/2018 8:03 AM EDT) P athologist Signature U Creatinine 50 mg/dL [facility] U Protein Ran <6 0 - 12 [facility] mg/dL [facility] Prot/Cre Ratio <0.1 ratio [facility] Specimen Anatomical Collection Method Collection Time Receive d Time (Source) Location / / Volume Laterality Urine specimen 03/11/2018 8:03 AM 018 8:13 (specimen) EDT AM EDT Resulting Agency Comment Spec In Lab Eriberto Melgar MD URINE ORDERABLES Performing Organization Address City/State/ZIP Code Phon e Number [address] (ABNORMAL) Differential, Automated (03/11/2018 8:01 AM EDT) Patholo gist Method Time Signature Neutrophils % 40.1 % [facility] Neutr Abs (ANC) 3.09 1.70 - [facility] 6.10 [place] [address]450(3)/[facility] LABORATORY Lymphocytes % 49.0 % [facility] Lymphocytes Abs 3.8 (H) 0.9 - 3.2 [facility] x10(3)/[facility] LABORATORY Monocytes % 7.5 % [facility] Monocyte Abs 0.6 0.3 - 0.9 [facility] x10(3)/[facility] LABORATORY Eosinophils % 2.3 % [facility] Eosinophils Abs 0.2 0.0 - 0.4 [facility] x10(3)/[facility] LABORATORY Basophils % 0.8 % [facility] Basophils Abs 0.1 0.0 - 0.1 [place] [id number](3)/[facility] LABORATORY Immature Gran % 0.30 % [facility] Comment: Immature granulocytes(IG's)percentage an d absolute count will include metamyelocytes, myelocytes, and promyelo cytes. Blood smears from CBCs yielding IG's will be scanned manually for concor dance. If this scan disagrees with the automated IG or if promyelocytes are not ed, a manual differential will be performed. Kym Gran Abs 0.02 0.00 - 0.04 x10(3)/[facility] MAR Y [facility] LABORATORY Specimen Anatomical Collection Method Collection Time Receive d Time (Source) Location / / Volume Laterality Blood specimen 03/11/2018 8:01 AM 018 8:04 (specimen) EDT AM EDT Resulting Agency Comment Spec In Lab Eriberto Melgar MD HEMATOLOGY ORDERABLES Performing Organization Address City/State/[place] [address] Hemogram (03/11/2018 8:01 AM EDT) P athologist Signature WBC 7.7 4.0 - 9.5 [facility] x10(3)/[facility] LABORATORY RBC 4.77 4.58 - [facility] 5.54 [facility] x10(6)/[facility] LABORATORY Hemoglobin 14.2 13.7 - [facility] 16.5 gm/dL [facility] Hematocrit 41.5 40.5 - [place] 48.5 % [facility] MCV 87.0 82.9 - [facility] 93.1 [facility] LABORATORY MCH 29.8 27.5 - [facility] 32.1 pg [facility] MCHC 34.2 32.0 - [place] 35.7 gm/dL [facility] Platelets 238 145 - 357 [facility] x10(3)/[facility] LABORATORY RDWSD 38.6 36.0 - [facility] 45.0 [facility] LABORATORY RDWCV 12.3 11.4 - [facility] 13.8 % [facility] MPV 9.6 7.6 - 12.9 [facility] LABORATORY nRBC % Auto 0.0 % [facility] nRBC Abs Auto 0.000 0.000 - [facility] 0.000 [facility] x10(3)/[facility] LABORATORY Specimen Anatomical Collection Method Collection Time Receive d Time (Source) Location / / Volume Laterality Blood specimen 03/11/2018 8:01 AM 018 8:04 (specimen) EDT AM EDT Resulting Agency Comment Spec In Lab Eriberto Melgar MD HEMATOLOGY ORDERABLES Performing Organization Address City/State/ZIP Code Phon e Number [address] Gold Tube HOLD (03/11/2018 8:01 AM EDT) P athologist Signature Gold Hold Sample in [facility] LABORATORY Specimen Anatomical Collection Method Collection Time Receive d Time (Source) Location / / Volume Laterality Blood specimen 03/11/2018 8:01 AM 018 8:04 (specimen) EDT AM EDT Eriberto Melgar MD CHEMISTRY ORDERABLES Performing Organization Address City/State/ZIP Code Phon e Number [address] Lavender Tube HOLD (03/11/2018 8:01 AM EDT) Patholo gist Method Time Signature Lavender Hold Sample in [facility] LABORATORY Specimen Anatomical Collection Method Collection Time Receive d Time (Source) Location / / Volume Laterality Blood specimen 03/11/2018 8:01 AM 018 8:04 (specimen) EDT AM EDT Eriberto Melgar MD HEMATOLOGY ORDERABLES Performing Organization Address City/[facility]/ZIP Code Phon e Number [address] Uric acid (03/11/2018 8:01 AM EDT) P athologist Signature Uric Acid 7.5 3.5 - 8.5 [facility] mg/dL [facility] Specimen Anatomical Collection Method Collection Time Receive d Time (Source) Location / / Volume Laterality Blood specimen 03/11/2018 8:01 AM 018 8:04 (specimen) EDT AM EDT Resulting Agency Comment Spec In Lab Eriberto Melgar MD CHEMISTRY ORDERABLES Performing Organization Address [facility] [place] [address] Tacrolimus level (03/11/2018 8:01 AM EDT) athologist Signature Tacrolimus Lvl 8.5 ng/mL [facility] Comment: Trough therapeutic: ??5-15 ng/mL Performed by ultra-performance liquid ch romatography tandem mass spectrometry (UPLCMS/MS). This test was developed and its performa nce characteristics determined by [facility]. It has not been cleared or approved [...] Melgar MD CHEMISTRY ORDERABLES Performing Organization Address [facility] [place] [address] (ABNORMAL) Reticulocyte Count (03/11/2018 8:01 AM EDT) Patholo gist Method Time Signature Retic Ct % 1.2 0.7 - 2.6 [place] % [facility] Retic Ct Abs 0.060 0.030 - [facility] 0.120 [facility] x10(6)/[facility] L LABORATORY Immature Retic% 3.6 0.0 - [facility] [place] 15.6 % [facility] Reticulated Hgb 40.3 (H) 31.3 - [facility] 40.2 pg [facility] Specimen Anatomical Collection Method Collection Time Receive d Time (Source) Location / / Volume Laterality Blood specimen 03/11/2018 8:01 AM 018 8:04 (specimen) EDT AM EDT Resulting Agency Comment Spec In Lab Eriberto Melgar MD HEMATOLOGY ORDERABLES Performing Organization Address City/[facility]/ZIP Code Phon e Number [address] Phosphorus (03/11/2018 8:01 AM EDT) P athologist Signature Phosphorus 3.2 2.5 - 4.5 [place] [place] mg/dL [facility] Specimen Anatomical Collection Method Collection Time Receive d Time (Source) Location / / Volume Laterality Blood specimen 03/11/2018 8:01 AM 018 8:04 (specimen) EDT AM EDT Resulting Agency Comment Spec In Lab Eriberto Melgar MD CHEMISTRY ORDERABLES Performing Organization Address City/[facility]/ZIP Code Phon e Number [address] Magnesium (03/11/2018 8:01 AM EDT) P athologist Signature Magnesium 0.71 0.69 - 1.07 [place] mmol/L [facility] Specimen Anatomical Collection Method Collection Time Receive d Time (Source) Location / / Volume Laterality Blood specimen 03/11/2018 8:01 AM 018 8:04 (specimen) EDT AM EDT Resulting Agency Comment Spec In Lab Eriberto Melgar MD CHEMISTRY ORDERABLES Performing Organization Address City/[facility]/ZIP Code Phon e Number [address] Lipase (03/11/2018 8:01 AM EDT) athologist Signature Lipase 21 0 - 60 [facility] unit/L [facility] Specimen Anatomical Collection Method Collection Time Receive d Time (Source) Location / / Volume Laterality Blood specimen 03/11/2018 8:01 AM 018 8:04 (specimen) EDT AM EDT Resulting Agency Comment Spec In Lab Eriberto Melgar MD CHEMISTRY ORDERABLES Performing Organization Address City/State/[place] [address] (ABNORMAL) Comprehensive metabolic panel (non-fasting) (03/11/2018 8:01 AM EDT) athologist Signature Glucose Lvl 108 65 - 199 [facility] mg/dL [facility] Comment: Diabetes: >=200 mg/dL plus symp toms BUN 20 10 - 20 mg/dL [facility] Creatinine 1.14 0.80 - 1.50 mg/dL [facility] Sodium 131 (L) 135 - 145 mmol/L [facility] Potassium 4.7 3.5 - 5.0 mmol/L [facility] Comment: Please note: ??Patients with WBC >100,00 0 may have falsely elevated Potassium levels. ??For accurate Potassium quantif ication in these patients send serum separator tube (gold top) for subsequent determinations. ??Contact the Clinical Chemistry Laboratory if there are any qu estions. Chloride 93 (L) 98 - 107 mmol/L [facility] CO2 26 22 - 31 mmol/L [facility] Anion Gap 12 5 - 15 mmol/L [facility] Calcium 9.7 8.5 - 10.5 mg/dL [facility] Total Protein 7.9 6.1 - 8.0 gm/dL [facility] Albumin 4.6 3.2 - 5.2 gm/dL [facility] AST 26 0 - 39 unit/L [facility] ALT 26 0 - 55 unit/L [facility] Alk Phos 107 40 - 120 unit/L [facility] Total Bilirubin 0.9 0.2 - 1.3 mg/dL [facility] Estimated GFR 75 >=60 mL/min/1.73 m?? [facility] Comment: The eGFR was calculated using the CKD-EP I equation. As with all creatinine based estimates of kidney function, eGFR values calculated with the CKD-EPI equation are not accurate in patients wi th acute kidney failure, extremes of body mass or the acutely ill. [email or web address] [email or web address] eGFR 86 >=60 mL/min/1.73 m?? [facility] Comment: The eGFR was calculated using the CKD-EP I equation. As with all creatinine based estimates of kidney function, eGFR values calculated with the CKD-EPI equation are not accurate in patients wi th acute kidney failure, extremes of body mass or the acutely ill. [email or web address]/FirstStringnkdep [email or web address]/DHnkf Specimen Anatomical Collection Method Collection Time Receive d Time (Source) Location / / Volume Laterality Blood specimen 03/11/2018 8:01 AM 018 8:04 (specimen) EDT AM EDT Resulting Agency Comment Spec In Lab Eriberto Melgar MD CHEMISTRY ORDERABLES Performing Organization Address City/State/[place] [address] Cholesterol, total (03/11/2018 8:01 AM EDT) P athologist Signature Chol, Total 150 mg/dL [facility] Comment: Lower Risk: <200 mg/dL Average Risk: 200-239 mg/dL Higher Risk: >yc=513 mg/dL Lipid Interpretation See Note [facility] Comment: Lipid management should be guided by a p atient? s ASCVD risk, goals and preferences. ACC/AHA Guidelines recommend high intens ity statin if clinical ASCVD or LDL greater than or equal to 190 mg/dL. http://tinyurl.com/SQJ-FNZ-Hhljhoham Adults aged 40-75 with LDL 70-189 mg/dL should have their 10 year ASCVD risk estimated with the ACC/AHA ASCVD risk es timator http://tools.acc.org/BNSKK-Crwr-Nqgjqrvc r/ Statin should be discussed if risk [...] City/[facility]/[place] [address] Amylase (03/11/2018 8:01 AM EDT) P athologist Signature Amylase 63 28 - 100 [facility] unit/L [facility] Specimen Anatomical Collection Method Collection Time Receive d Time (Source) Location / / Volume Laterality Blood specimen 03/11/2018 8:01 AM 018 8:04 (specimen) EDT AM EDT Resulting Agency Comment Spec In Lab Eriberto Melgar MD CHEMISTRY ORDERABLES Performing Organization Address City/[facility]/[place] [address] documented in this encounter Visit Diagnoses Diagnosis 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
--- OUTSIDE RECORDS SUMMARY | 2022-04-04 00:45 | XMS_ITS | Encounter Summary ---
:1965 Author Organization [facility] [place] [address] Care Team Providers Name Role Phone Anna Mullen MD Primary Care Provider Reason for Visit Reason Comments Medication Refill Encounter Details Date Type Department Care Team Description 11/17/2017 [facility] [place] [address] [place] [address] [phone] (Wo rk) Social History Tobacco Use Types [...] on filedocumented in this encounter Care Teams Legal Administrative Secretary Relationship Specialty Start Date End Date Anna Mullen MD PCP - General 12/03/10 [address] [place] [address] documented as of this encounter
--- OUTSIDE RECORDS SUMMARY | 2022-04-04 00:45 | XMS_ITS | Encounter Summary ---
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; Transplant at [facility] MD Arlyn Aftercare following organ transplant; [facility] Pro phylactic immunotherapy; Drive Hypertension secondary to other renal di sorders [place] [address] [place] [address] [phone] Social History Tobacco Use Types Packs/Day Years [...] EDT Transplant Medicine Follow Up Reese Hsu [id number] 1965 Transplant ID: Date: 02/14/2019 Patient: Reese Hsu Transplant Date: 08/28/2013 Organ(s) Pancreas Kake organ diagnosis: Diabetes Mellitus - Type I [...] for diabetics, every 5 for non diabetics [place] kidney ultrasound looking for renal cell CA, [...] DIAGNOSTIC performed by Anna Rapp MD at [facility] ENDOSCOPY ??? PRO TRANSPLANT ALLOGRAFT PANCREAS 08/28/2013 @PANCREATIC TRANSPLANT performed by Iraj Keller MD at [facility] MAIN OR ??? PRO TRANSPLANT, PREP DONOR PANCREAS 08/28/2013 @PREPARATION CADAVERIC PANCREAS, STANDARD performed by Iraj Keller MD at [facility] MAIN OR ??? PRO UNLISTED PROCEDURE, MUSCULOSKELETAL SYSTEM, GENERAL 10 years carpel tunnel ??? PRO UPPER GI ENDOSCOPY, BIOPSY 12/31/2011 UPPER GASTROINTESTINAL ENDOSCOPY,WITH BIOPSY SINGLE OR MULTIPLE performed by CLAYTON BHAKTA at [facility] ENDOSCOPY ??? PRO UPPER GI ENDOSCOPY, BIOPSY N/A 08/15/2015 EGD WITH BIOPSY performed by Clayton Bhakta MD at [facility] ENDOSCOPY ??? SHOULDER SURGERY ??? UPPER GI ENDOSCOPY, EXAM 12/31/2011 UPPER GI ENDOSCOPY performed by CLAYTON BHAKTA at [facility] ENDOSCOPY Current Outpatient Medications: ??? 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 Follow-up: 6 months Labs quarterly. documented in this encounter Plan of Treatment Not on filedocumented as of this encounter Results Hemoglobin A1c (02/14/2019 9:03 AM EDT) athologist Signature Hemoglobin A1C 5.3 4.3 - 5.6 [facility] [...] 1, S67-74 Est Avg Gluc 105 mg/dL [facility] Comment: eAG equivalents [...] into estimated average glucose values. ??Diabetes Care 2008:31(8):0974-1900. Specimen Anatomical Collection Method Collection Time Receive d Time (Source) Location / / Volume Laterality Blood specimen 02/14/2019 9:03 AM 019 9:11 (specimen) EDT AM EDT Resulting Agency Comment Spec In Lab Eriberto Melgar MD CHEMISTRY ORDERABLES Performing Organization Address City/[facility]/ZIP Code Phon e Number [address] Urinalysis with reflex Culture (02/14/2019 9:03 AM EDT) Patholo gist Method Time Signature Glucose UA Negative Negative [facility] mg/dL [facility] Protein UA Negative Negative [facility] mg/dL [facility] Bilirubin UA Negative Negative [facility] mg/dL [facility] Comment: Clinical correlation required for positi ve Urine Bilirubin results as false positive may occur with some drugs and d rug related products. If a false positive is suspected a serum total bili sinha should be considered if clinically indicated. Urobilinogen UA Normal Normal mg/dL [facility] pH UA 7.0 5.0 - 8.0 [facility] Blood UA Negative Negative mg/dL [facility] Ketones UA Negative Negative mg/dL [facility] Nitrite UA Negative Negative [facility] Leukocytes UA Negative Negative [facility] LABORATORY Appearance UA Clear Clear [facility] Spec Bangs UA 1.004 1.002 - 1.030 [facility] Color UA Straw Yellow [facility] Culture Reflexed No [facility] Specimen (Source) Anatomical Collection Method Collection Time Re ceived Time Location / / Volume Laterality Urine specimen 02/14/2019 9:03 02/14/2019 9:08 obtained by clean AM EDT AM EDT catch procedure (specimen) Resulting Agency Comment Spec In Lab Eriberto Melgar MD URINE ORDERABLES Performing Organization Address City/[facility]/ZIP Code Phon e Number [address] Uric acid (02/14/2019 9:03 AM EDT) P athologist Signature Uric Acid 7.1 3.5 - 8.5 [facility] mg/dL [facility] Specimen Anatomical Collection Method Collection Time Receive d Time (Source) Location / / Volume Laterality Blood specimen 02/14/2019 9:03 AM 019 9:11 (specimen) EDT AM EDT Resulting Agency Comment Spec In Lab Eriberto Melgar MD CHEMISTRY ORDERABLES Performing Organization Address City/[facility]/[place] [address] Tacrolimus level (02/14/2019 9:03 AM EDT) athologist Signature Tacrolimus Lvl 8.0 ng/mL [facility] Comment: Trough therapeutic: ??5-15 ng/mL Performed by ultra-performance liquid ch romatography tandem mass spectrometry (UPLCMS/MS). This test was developed and its performa nce characteristics determined by [facility]. It has not been [...] CHEMISTRY ORDERABLES Performing Organization Address City/[facility] Code Phon e Number [address] Reticulocyte Count (02/14/2019 9:03 AM EDT) athologist Signature Retic Ct % 1.3 0.7 - 2.6 [facility] Retic Ct Abs 0.060 0.030 - [facility] 0.120 [facility] x10(6)/[facility] LABORATORY Immature Retic% 4.1 0.0 - 15.6 [facility] Reticulated Hgb 36.1 31.3 - [facility] 40.2 pg [facility] Specimen Anatomical Collection Method Collection Time Receive d Time (Source) Location / / Volume Laterality Blood specimen 02/14/2019 9:03 AM 019 9:11 (specimen) EDT AM EDT Resulting Agency Comment Spec In Lab Eriberto Melgar MD HEMATOLOGY ORDERABLES Performing Organization Address City/[facility]/[place] [address] Protein/Creatinine Ratio, urine (02/14/2019 9:03 AM EDT) P athologist Signature U Creatinine 21 mg/dL [facility] U Protein Ran <6 0 - 12 [facility] mg/dL [facility] Prot/Cre Ratio <0.3 ratio [facility] Specimen Anatomical Collection Method Collection Time Receive d Time (Source) Location / / Volume Laterality Urine specimen 02/14/2019 9:03 AM 019 9:08 (specimen) EDT AM EDT Resulting Agency Comment Spec In Lab Eriberto Melgar MD URINE ORDERABLES Performing Organization Address City/[facility]/ZIP Code Phon e Number [address] Phosphorus (02/14/2019 9:03 AM EDT) P athologist Signature Phosphorus 2.6 2.5 - 4.5 [facility] mg/dL [facility] Specimen Anatomical Collection Method Collection Time Receive d Time (Source) Location / / Volume Laterality Blood specimen 02/14/2019 9:03 AM 019 9:11 (specimen) EDT AM EDT Resulting Agency Comment Spec In Lab Eriberto Melgar MD CHEMISTRY ORDERABLES Performing Organization Address City/[facility]/[place] [address] Magnesium (02/14/2019 9:03 AM EDT) P athologist Signature Magnesium 0.76 0.69 - 1.07 [facility] mmol/L [facility] Specimen Anatomical Collection Method Collection Time Receive d Time (Source) Location / / Volume Laterality Blood specimen 02/14/2019 9:03 AM 019 9:11 (specimen) EDT AM EDT Resulting Agency Comment Spec In Lab Eriberto Melgar MD CHEMISTRY ORDERABLES Performing Organization Address City/State/ZIP Code Phon e Number [address] Lipase (02/14/2019 9:03 AM EDT) athologist Signature Lipase 20 0 - 60 [facility] unit/L [facility] Specimen Anatomical Collection Method Collection Time Receive d Time (Source) Location / / Volume Laterality Blood specimen 02/14/2019 9:03 AM 019 9:11 (specimen) EDT AM EDT Resulting Agency Comment Spec In Lab Eriberto Melgar MD CHEMISTRY ORDERABLES Performing Organization Address City/[facility] Code Phon e Number [address] (ABNORMAL) Comprehensive metabolic panel (non-fasting) (02/14/2019 9:03 AM EDT) athologist Signature Glucose Lvl 103 65 - 199 [facility] mg/dL [facility] Comment: Diabetes: >=200 mg/dL plus symp toms BUN 14 10 - 20 mg/dL [facility] Creatinine 0.98 0.80 - 1.50 mg/dL [facility] Sodium 133 (L) 135 - 145 mmol/L [facility] Potassium 4.7 3.5 - 5.0 mmol/L [facility] Comment: Please note: ??Patients with WBC >100,00 0 may have falsely elevated Potassium levels. ??For accurate Potassium quantif ication in these patients send serum separator tube (gold top) for subsequent determinations. ??Contact the Clinical Chemistry Laboratory if there are any qu estions. Chloride 99 98 - 107 mmol/L [facility] CO2 26 22 - 31 mmol/L [facility] Anion Gap 8 5 - 15 mmol/L [facility] Calcium 9.3 8.5 - 10.5 mg/dL [facility] Total Protein 7.5 6.1 - 8.0 gm/dL [facility] Albumin 4.6 3.2 - 5.2 gm/dL [facility] AST 30 0 - 39 unit/L [facility] ALT 31 0 - 55 unit/L [facility] Alk Phos 105 40 - 120 unit/L [facility] Total Bilirubin 1.1 0.2 - 1.3 mg/dL [facility] Estimated GFR 89 >=60 mL/min/1.73 m?? [facility] Comment: The eGFR was calculated using the CKD-EP I equation. As with all creatinine based estimates of kidney function, eGFR values calculated with the CKD-EPI equation are not accurate in patients wi th acute kidney failure, extremes of body mass or the acutely ill. http://[employer] Servicesnkf eGFR 103 >=60 mL/min/1.73 m?? [facility] Comment: The eGFR was calculated using the CKD-EP I equation. As with all creatinine based estimates of kidney function, eGFR values calculated with the CKD-EPI equation are not accurate in patients wi th acute kidney failure, extremes of body mass or the acutely ill. http://[employer]/[facility] CITYnkf Specimen Anatomical Collection Method Collection Time Receive d Time (Source) Location / / Volume Laterality Blood specimen 02/14/2019 9:03 AM 019 9:11 (specimen) EDT AM EDT Resulting Agency Comment Spec In Lab Eriberto Melgar MD CHEMISTRY ORDERABLES Performing Organization Address City/State/[place] [address] Cholesterol, total (02/14/2019 9:03 AM EDT) athologist Signature Chol, Total 146 mg/dL [facility] Comment: Lower Risk: <200 mg/dL Average Risk: 200-239 mg/dL Higher Risk: >nh=120 mg/dL Lipid Interpretation See Note [facility] Comment: Lipid management should be guided by a p atient? s ASCVD risk, goals and preferences. ACC/AHA Guidelines recommend high intens ity statin if clinical ASCVD or LDL greater than or equal to 190 mg/dL. http://[employer]rickstreamurl.com/KLD-GYC-Gwnabpvrv Adults aged 40-75 with LDL 70-189 mg/dL should have their 10 year ASCVD risk estimated with the ACC/AHA ASCVD risk es timator http://tools.acc.org/OYSPX-Rcnh-Afynzadn r/ Statin should be discussed if risk [...] City/[facility]/[place] [address] Amylase (02/14/2019 9:03 AM EDT) P athologist Signature Amylase 58 28 - 100 [facility] unit/L [facility] Specimen Anatomical Collection Method Collection Time Receive d Time (Source) Location / / Volume Laterality Blood specimen 02/14/2019 9:03 AM 019 9:11 (specimen) EDT AM EDT Resulting Agency Comment Spec In Lab Eriberto Melgar MD CHEMISTRY ORDERABLES Performing Organization Address City/[facility]/[place] [address] documented in this encounter Visit Diagnoses Diagnosis 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
--- OUTSIDE RECORDS SUMMARY | 2022-04-04 00:45 | XMS_ITS | Encounter Summary ---
:1965 Author Organization [facility] [place] [address] Care Team Providers Name Role Phone Anna Mullen MD Primary Care Provider Reason for Visit Reason Onset Date Comments Medication Refill 03/08/2018 Encounter Details Date Type Department Care Team Description 03/08/2018 Refill Solid Organ Transplant [place] [address] Social History Tobacco Use Types Packs/Day [...] on filedocumented in this encounter Care Teams Test Engineering Manager Relationship Specialty Start Date End Date Anna Mullen MD PCP - General 12/03/10 [address] [place], [place] [address] documented as of this encounter
--- OUTSIDE RECORDS SUMMARY | 2022-04-04 00:45 | XMS_ITS | Encounter Summary ---
:1965 Author Organization [facility] Address [facility] [address] [place] [address] Care Team Providers Name Role Phone Anna Mullen MD Primary Care Provider Reason for Visit Reason Comments Medication Refill Encounter Details Date Type Department Care Team Description 08/10/2018 Refill Solid Organ Transplant Eriberto Melgar Pancreas [facility] by [facility] Arlyn transplant [facility] [place] [address] TRANSPLANT SURGERY [phone] [place] [id number] (Wo rk) Social History Tobacco Use Types [...] CMA - 08/10/2018 9:22 AM EST This marketing copywriter spoke with patient and inquired as to wether his cold sore has healed. He states that ithas healed and he uses the Valtrex PRN ~ 3 times yearly. Patient requests 30 tablet script. 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
--- OUTSIDE RECORDS SUMMARY | 2022-04-04 00:45 | XMS_ITS | Encounter Summary ---
:1965 Author Organization [facility] [place] [address] Care Team Providers Name Role Phone Anna Mullen MD Primary Care Provider Reason for Referral Diagnostic Test (Routine) - Closed Specialty Diagnoses / Procedures Referred By Contact Refer red To Contact Radiology Diagnoses Chest pain, unspecified type Geoffrey Cassidy MD [facility] Rad Nuclear Med Procedures NM Pharmacologic Stress Myocardial Perfusion [facility] CARDIOLOGY DEPT. [address] [address] Fax: Referral ID Status Reason Start Date Expiration Date Visits V isits Requested Authorized [id number] Closed Specialty 01/11/2019 03/11/2019 1 1 Service Requested Reason for Visit Diagnostic Test (Routine) - Closed Specialty Diagnoses / Procedures Referred By Contact Refer red To Contact Radiology Diagnoses Chest pain, unspecified type Geoffrey Cassidy MD [facility] Rad Nuclear Med Procedures NM Pharmacologic Stress Myocardial Perfusion [facility] DR Hair [facility] [place] [address] [place] [address] Fax: Referral ID Status Reason Start Date Expiration Date Visits V isits Requested Authorized [id number] Closed Specialty 01/11/2019 03/11/2019 1 1 Service Requested Encounter Details Date Type Department Care Team Description 01/13/2019 Hospital Encounter Nuclear Medicine at [place], Geoffrey Chest pain, Tiffani Melendrez MD unspecified type [facility] [address] [place] CARDIOLOGY DEPT. [address] [place], [place] [phone] [id number] Social History Tobacco Use Types Packs/Day Years [...] below. ? Electronically signed by: Unique Skaggs [facility] ([phone]), at 01/13/2019 11:58 AM Narrative 01/13/2019 11:58 [...] number below. Electronically signed by: Unique Skaggs [facility] ([phone]), at 01/13/2019 11:58 AM Geoffrey Cassidy MD IMG [place] ORDERABLES documented in this encounter Visit Diagnoses Diagnosis Chest pain, unspecified type documented in this encounter Care Teams Roadway Designer Relationship Specialty Start Date End Date Anna Mullen MD PCP - General 12/03/10 [address] [place] [address] documented as of this encounter
--- OUTSIDE RECORDS SUMMARY | 2022-04-04 00:45 | XMS_ITS | Encounter Summary ---
:1965 Author Organization [facility] [place] [address] Care Team Providers Name Role Phone Anna Mullen MD Primary Care Provider Encounter Details Date Type Department Care Team Description 08/03/2018 Telephone Solid Organ Transplant [place] [address] Social History Tobacco Use Types Packs/Day [...] filedocumented in this encounter Care Teams Ham Pumper Relationship Specialty Start Date End Date Anna Mullen MD PCP - General 12/03/10 [address] [place] [address] documented as of this encounter
--- OUTSIDE RECORDS SUMMARY | 2022-04-04 00:45 | XMS_ITS | Encounter Summary ---
:1965 Author Organization [facility] [place] [address] Care Team Providers Name Role Phone Anna Mullen MD Primary Care Provider Reason for Visit Diagnostic Test (Routine) - Closed Specialty Diagnoses / Procedures Referred By Contact Refer red To Contact Radiology Diagnoses Chest pain, unspecified type Geoffrey Cassidy MD [facility] Rad Nuclear Med Procedures NM Pharmacologic Stress Myocardial Perfusion [facility] [place] [address] [place] [address] Fax: Referral ID Status Reason Start Date Expiration Date Visits V isits Requested Authorized [id number] Closed Specialty 01/11/2019 03/11/2019 1 1 Service Requested Encounter Details Date Type Department Care Team Description 01/13/2019 Hospital Encounter Nuclear Medicine at Geoffrey Cassidy Mary Hitchcock MD [facility] [place] [address] CARDIOLOGY DEPT. [phone] [place], [place] [address] (Wo rk) Social History Tobacco [...] Routine documented in this encounter Care Teams Software Specialist Relationship Specialty Start Date End Date Anna Mullen MD PCP - General 12/03/10 [address] [place] [address] documented as of this encounter
--- OUTSIDE RECORDS SUMMARY | 2022-04-04 00:45 | XMS_ITS | Encounter Summary ---
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 Aftercare following organ transplant History of ASCVD (arteriosclerotic cardiovascular disease) Eriberto Melgar [facility] Non-Inv Card Lab Procedures Echo pharm stress test (DSE) [place] [address] [place] [address] Referral ID Status Reason Start Date Expiration Visits Visits Date Requested Authorized [id number] Specialty 07/09/2017 09/06/2017 1 1 Service Requested Reason for Visit Diagnostic Test (Routine) - Specialty Diagnoses / Procedures Referred By Contact Refer red To Contact Diagnoses 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 Aftercare following organ transplant History of ASCVD (arteriosclerotic cardiovascular disease) Eriberto Melgar [facility] Non-Inv Card Lab Procedures Echo pharm stress test (DSE) [facility] [place] [address] [place] [address] Referral ID Status Reason Start Date Expiration Visits Visits Date Requested Authorized [id number] Specialty 07/09/2017 09/06/2017 1 1 Service Requested Encounter Details Date Type Department Care Team Description 03/11/2018 Hospital Encounter Non-Invasive [place], 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 History of ASCVD [...] ?VAZQUEZ Guillen ?(Age): 1965(52y) Med Rec#: ? [id number] ?Sex: ?M ? Site Loc: ? [facility] [place] ?Ht / Wt: ??183(cm)/92(kg) Pt. Loc: ?Echo Lab ?BSA: ?2.14 Study Date: ?? 03/11/2018 ?Pt. Type: Tape: ? Referring: Eriberto Melgar Reading: Bebo Dickens ([id number]) Catalyst Impregnator: Ariel Bazzi Catalyst Impregnator: Nya Doss Nurse: Lacey Sánchez Diagnosis: *Pancreas [...] rate (170 beats/min), peak rate pressure product 16583. The patient did not express feelings of [...] Normal ? Mid-Inferoseptal ?Normal ? Normal ? [facility]-Septal ? Normal ? Normal ? [facility]-Anterior ? Normal ? Normal ? [facility]-Lateral ?Normal ? Normal ? [facility]-Inferior ? Normal ? Normal ? [facility]-Tip ?Normal ? Normal ? This report has been electronically sign ed by: _ Bebo Dickens MD ? 03/11/2018 10:02 :13 Images reviewed and interpretation [facility] Cardiac Ultrasound Laboratory Procedure Note Bebo Dickens MD - 03/11/2018Formdomo lanier of this note might be different from the original. Procedure: Stress Echocardiogram Patient: VAZQUEZ Guillen (Age): [birth year](52y) Med Rec#: [id number] Sex: M Site Loc: [facility] [place] Ht / Wt: 183(cm)/92(kg) Pt. Loc: Echo Lab BSA: 2.14 Study Date: 03/11/2018 Pt. Type: Tape: Referring: Eriberto Melgar Reading: Bebo Dickens ([id number]) Catalyst Impregnator: Ariel Bazzi Catalyst Impregnator: Nya Doss Nurse: Lacey Sánchez Diagnosis: *Pancreas [...] rate (170 beats/min), peak rate pressure product 17182. The patient did not express feelings of [...] ic Mid-Inferior Normal Normal Mid-Inferoseptal Normal Normal [facility]-Septal Normal Normal [facility]-Anterior Normal Normal [facility]-Lateral Normal Normal [facility]-Inferior Normal Normal [facility]-Tip Normal Normal This report has been electronically sign ed by: _ Bebo Dickens MD 03/11/2018 10:02:13 Images reviewed and interpretation verif ied [facility] Cardiac Ultrasound Laboratory Eriberto Melgar MD [...] Routine documented in this encounter Care Teams Contractor Buyer Relationship Specialty Start Date End Date Anna Mullen MD PCP - General 12/03/10 [address] [place] [address] documented as of this encounter
--- OUTSIDE RECORDS SUMMARY | 2022-04-04 00:45 | XMS_ITS | Encounter Summary ---
:1965 Author Organization [facility] [place] [address] Care Team Providers Name Role Phone Anna Mullen MD Primary Care Provider Encounter Details Date Type Department Care Team Description 08/04/2018 Telephone Solid [place] [address] Social History Tobacco Use Types Packs/Day Years Used Date Never Smoker Smokeless Tobacco: Never Used Alcohol Use Standard Drinks/Week Comments No 0 (1 standard drink = 0.6 oz pure alcoho l) history of abuse, stopped 1996 Sex Assigned at Date Recorded Male 05/29/2021 11:28 PM EDT documented as of this encounter Miscellaneous Notes Telephone Encounter - Zoe Rosario RN - 08/04/2018 12:55 PM EST Pt returned my call from yesterday. I confirmed with him the prograf change and need for repeat labsin one week. Pt was provided with new standing lab orders on Thursday during his clinic visit he will go to his local lab in [facility] next week for his repeat labs. Zoe Rosario RN Solid Organ Transplant documented in this encounter Plan of Treatment Not on filedocumented as of this encounter Visit Diagnoses Not on filedocumented in this encounter Care Teams Edge Setter Relationship Specialty Start Date End Date Anna Mullen MD PCP - General 12/03/10 [address] [place] [address] documented as of this encounter
--- OUTSIDE RECORDS SUMMARY | 2022-04-04 00:45 | XMS_ITS | Encounter Summary ---
:1965 Author Organization [facility] [place] [address] Care Team Providers Name Role Phone Anna Mullen MD Primary Care Provider Encounter Details Date Type Department Care Team Description 08/02/2018 Laboratory Appointment Lab 3L [facility] [place] Immunosuppression; [facility] Pancreas replaced [place] [address] Social History Tobacco Use Types [...] section. DIFFERENTIAL, STAT 08/02/2018 9:51 AM Immunosuppres pnakaj Results for this AUTOMATED EST Pancreas replaced [...] P athologist Signature U Calcium 1.5 mg/dL [facility] U Creatinine 52 mg/dL [facility] Ca/Cre Ratio 0.03 ratio [facility] Specimen Anatomical Collection Method Collection Time Receive d Time (Source) Location / / Volume Laterality Urine specimen 08/02/2018 9:57 AM 018 (specimen) EST 10:08 AM EST Resulting Agency Comment Spec In Lab Eriberto Melgar MD URINE ORDERABLES Performing Organization Address City/State/ZIP Code Phon e Number [address] Magnesium, urine, random (08/02/2018 9:57 AM EST) P athologist Signature U Mg Ran 0.89 mmol/L [facility] Specimen Anatomical Collection Method Collection Time Receive d Time (Source) Location / / Volume Laterality Urine specimen 08/02/2018 9:57 AM 018 (specimen) EST 10:08 AM EST Resulting Agency Comment Spec In Lab Eriberto Melgar MD URINE ORDERABLES Performing Organization Address City/[facility]/ZIP [facility] Phon e Number [address] Phosphorus, urine, random (08/02/2018 9:57 AM EST) P athologist Signature U Phosphorus 30.6 mg/dL [facility] Specimen Anatomical Collection Method Collection Time Receive d Time (Source) Location / / Volume Laterality Urine specimen 08/02/2018 9:57 AM 018 (specimen) EST 10:08 AM EST Resulting Agency Comment Spec In Lab Eriberto Melgar MD URINE ORDERABLES Performing Organization Address City/[facility]/ZIP Code Phon e Number [address] Urinalysis with reflex Culture (08/02/2018 9:57 AM EST) Patholo gist Method Time Signature Glucose UA Negative Negative [facility] mg/dL [facility] Protein UA Negative Negative [facility] mg/dL [facility] Bilirubin UA Negative Negative [facility] mg/dL [facility] Comment: Clinical correlation required for positi ve Urine Bilirubin results as false positive may occur with some drugs and d rug related products. If a false positive is suspected a serum total bili sinha should be considered if clinically indicated. Urobilinogen UA Normal Normal mg/dL [facility] pH UA 6.0 5.0 - 8.0 [facility] Blood UA Negative Negative mg/dL [facility] Ketones UA Negative Negative mg/dL [facility] Nitrite UA Negative Negative [facility] Leukocytes UA Negative Negative [facility] LABORATORY Appearance UA Clear Clear [facility] Spec [place] UA 1.008 1.002 - 1.030 [facility] Color UA Straw Yellow [facility] Culture Reflexed No [facility] Specimen (Source) Anatomical Collection Method Collection Time Re ceived Time Location / / Volume Laterality Urine specimen 08/02/2018 9:57 08/02/2018 obtained by clean AM EST 10:[address] catch procedure (specimen) Resulting Agency Comment Spec In Lab Eriberto Melgar MD URINE ORDERABLES Performing Organization Address City/[facility]/ZIP Code Phon e Number [address] Protein/Creatinine Ratio, urine (08/02/2018 9:57 AM EST) P athologist Signature U Creatinine 52 mg/dL [facility] U Protein Ran <6 0 - 12 [facility] mg/dL [facility] Prot/Cre Ratio <0.1 ratio [facility] Specimen Anatomical Collection Method Collection Time Receive d Time (Source) Location / / Volume Laterality Urine specimen 08/02/2018 9:57 AM 018 (specimen) EST 10:08 AM EST Resulting Agency Comment Spec In Lab Eriberto Melgar MD URINE ORDERABLES Performing Organization Address City/State/[place] [address] (ABNORMAL) Differential, Automated (08/02/2018 9:51 AM EST) [facility] gist Method Time Signature Neutrophils % 36.2 % [facility] Neutr Abs (ANC) 2.71 1.70 - [facility] 6.10 [facility] x10(3)/[facility] LABORATORY Lymphocytes % 51.9 % [facility] Lymphocytes Abs 3.9 (H) 0.9 - 3.2 [facility] x10(3)/[facility] LABORATORY Monocytes % 7.7 % [facility] Monocyte Abs 0.6 0.3 - 0.9 [facility] x10(3)/[facility] LABORATORY Eosinophils % 2.9 % [facility] Eosinophils Abs 0.2 0.0 - 0.4 [facility] x10(3)/[facility] LABORATORY Basophils % 0.8 % [facility] Basophils Abs 0.1 0.0 - 0.1 [facility] x10(3)/[facility] LABORATORY Immature Gran % 0.50 % [facility] Comment: Immature granulocytes(IG's)percentage an d absolute count will include metamyelocytes, myelocytes, and promyelo cytes. Blood smears from CBCs yielding IG's will be scanned manually for concor dance. If this scan disagrees with the automated IG or if promyelocytes are not ed, a manual differential will be performed. Kym Gran Abs 0.04 0.00 - 0.04 x10(3)/[facility] Specimen Anatomical Collection Method Collection Time Receive d Time (Source) Location / / Volume Laterality Blood specimen 08/02/2018 9:51 AM 018 9:59 (specimen) EST AM EST Resulting Agency Comment Spec In Lab Eriberto Melgar MD HEMATOLOGY ORDERABLES Performing Organization Address City/State/[place] [address] (ABNORMAL) Hemogram (08/02/2018 9:51 AM EST) Analysis Performed At Patho logist Time Signature WBC 7.5 4.0 - 9.5 [facility] x10(3)/[facility] LABORATORY RBC 4.20 (L) 4.58 - [place] 5.54 [facility] x10(6)/[facility] LABORATORY Hemoglobin 13.2 (L) 13.7 - [facility] 16.5 gm/dL [facility] Hematocrit 38.4 (L) 40.5 - [facility] 48.5 % [facility] MCV 91.4 82.9 - [facility] 93.1 [facility] LABORATORY MCH 31.4 27.5 - [facility] RAFAEL 32.1 pg [facility] MCHC 34.4 32.0 - [facility] 35.7 gm/dL [facility] Platelets 217 145 - 357 [facility] x10(3)/[facility] LABORATORY RDWSD 42.0 36.0 - [facility] 45.0 [facility] LABORATORY RDWCV 12.8 11.4 - [facility] 13.8 % [facility] MPV 10.0 7.6 - 12.9 [facility] LABORATORY nRBC % Auto 0.0 % [facility] nRBC Abs Auto 0.000 0.000 - [place] 0.000 [facility] x10(3)/[facility] LABORATORY Specimen Anatomical Collection Method Collection Time Receive d Time (Source) Location / / Volume Laterality Blood specimen 08/02/2018 9:51 AM 018 9:59 (specimen) EST AM EST Resulting Agency Comment Spec In Lab Eriberto Melgar MD HEMATOLOGY ORDERABLES Performing Organization Address City/State/[place] [address] 1,25-dihydroxycholecalciferol (08/02/2018 9:51 AM EST) P athologist Signature Vit D 1,25 45 18 - 64 [place] pg/mL [facility] Comment: ADDITIONAL INFORMATIO N This test was developed and its performa nce characteristics determined by [facility] in a manner co nsistent with CLIA requirements. This test has not been gene ared or approved by the U.S. Food and Drug Administration. Test Performed by: [facility] [address] [place], [place] [address] Specimen Anatomical Collection Method Collection Time Receive d Time (Source) Location / / Volume Laterality Blood specimen 08/02/2018 9:51 AM 018 1:12 (specimen) EST PM EST Resulting Agency Comment Spec In Lab Eriberto Melgar MD CHEMISTRY ORDERABLES Performing Organization Address City/[facility]/ZIP Code Phon e Number [address] Amylase (08/02/2018 9:51 AM EST) athologist [facility] Amylase 49 28 - 100 [facility] unit/L [facility] Specimen Anatomical Collection Method Collection Time Receive d Time (Source) Location / / Volume Laterality Blood specimen 08/02/2018 9:51 AM 018 9:59 (specimen) EST AM EST Resulting Agency Comment Spec In Lab Eriberto Melgar MD CHEMISTRY ORDERABLES Performing Organization Address City/[facility]/ZIP [facility] [place] [address] Gold Tube HOLD (08/02/2018 9:51 AM EST) athologist Signature Gold Hold Sample in [facility]. [facility] Specimen Anatomical Collection Method Collection Time Receive d Time (Source) Location / / Volume Laterality Blood specimen 08/02/2018 9:51 AM 018 9:59 (specimen) EST AM EST Eriberto Melgar MD CHEMISTRY ORDERABLES Performing Organization Address City/[facility]/[place] [address] Lipase (08/02/2018 9:51 AM EST) P athologist Signature Lipase 19 0 - 60 [facility] unit/L [facility] Specimen Anatomical Collection Method Collection Time Receive d Time (Source) Location / / Volume Laterality Blood specimen 08/02/2018 9:51 AM 018 9:59 (specimen) EST AM EST Resulting Agency Comment Spec In Lab Eriberto Melgar MD CHEMISTRY ORDERABLES Performing Organization Address City/[facility]/ZIP Code Phon e Number [address] Magnesium (08/02/2018 9:51 AM EST) P athologist Signature Magnesium 0.80 0.69 - 1.07 [facility] mmol/L [facility] Specimen Anatomical Collection Method Collection Time Receive d Time (Source) Location / / Volume Laterality Blood specimen 08/02/2018 9:51 AM 018 9:59 (specimen) EST AM EST Resulting Agency Comment Spec In Lab Eriberto Melgar MD CHEMISTRY ORDERABLES Performing Organization Address City/[facility]/ZIP Code Phon e Number [address] Phosphorus (08/02/2018 9:51 AM EST) P athologist Signature Phosphorus 3.2 2.5 - 4.5 [place] mg/dL [facility] Specimen Anatomical Collection Method Collection Time Receive d Time (Source) Location / / Volume Laterality Blood specimen 08/02/2018 9:51 AM 018 9:59 (specimen) EST AM EST Resulting Agency Comment Spec In Lab Eriberto Melgar MD CHEMISTRY ORDERABLES Performing Organization Address City/[facility]/ZIP Code Phon e Number [address] (ABNORMAL) PTH (08/02/2018 9:51 AM EST) P athologist Signature PTH 79 (H) 15 - 65 [place] pg/mL [facility] Specimen Anatomical Collection Method Collection Time Receive d Time (Source) Location / / Volume Laterality Blood specimen 08/02/2018 9:51 AM 018 9:59 (specimen) EST AM EST Resulting Agency Comment Spec In Lab Eriberto Melgar MD CHEMISTRY ORDERABLES Performing Organization Address City/[facility]/ZIP Code Phon e Number [address] Reticulocyte Count (08/02/2018 9:51 AM EST) athologist Signature Retic Ct % 1.3 0.7 - 2.6 [facility] LABORATORY Retic Ct Abs 0.050 0.030 - [facility] 0.120 [facility] x10(6)/[facility] LABORATORY Immature Retic% 6.8 0.0 - 15.6 [facility] K [facility] Reticulated Hgb 37.0 31.3 - [facility] 40.2 pg [facility] Specimen Anatomical Collection Method Collection Time Receive d Time (Source) Location / / Volume Laterality Blood specimen 08/02/2018 9:51 AM 018 9:59 (specimen) EST AM EST Resulting Agency Comment Spec In Lab Eriberto Melgar MD HEMATOLOGY ORDERABLES Performing Organization Address City/[facility] Code Phon e Number [address] Tacrolimus level (08/02/2018 9:51 AM EST) athologist Signature Tacrolimus Lvl 9.9 ng/mL [facility] Comment: Trough therapeutic: ??5-15 ng/mL Performed by ultra-performance liquid ch romatography tandem mass spectrometry (UPLCMS/MS). This test was developed and its performa nce characteristics determined by [facility]. It has not been cleared [...] City/[facility]/ZIP Code Phon e Number [address] Uric acid (08/02/2018 9:51 AM EST) P athologist Signature Uric Acid 7.3 3.5 - 8.5 [facility] mg/dL [facility] Specimen Anatomical Collection Method Collection Time Receive d Time (Source) Location / / Volume Laterality Blood specimen 08/02/2018 9:51 AM 018 9:59 (specimen) EST AM EST Resulting Agency Comment Spec In Lab Eriberto Melgar MD CHEMISTRY ORDERABLES Performing Organization Address City/[facility] Phon e Number [address] (ABNORMAL) Vitamin D, 25-Hydroxy (08/02/2018 9:51 AM EST) athologist Signature 25-OH Vit D 21 (L) 30 - 100 [facility] Total ng/mL [facility] Comment: Deficient <10 ng/mL Insufficient 10 to 29 ng/mL Sufficient 30 to 100 ng/mL Potential Intoxication >100 ng/mL According to the [place] National Osteoporosi s Foundation, Vitamin D concentrations >30 ng/mL are sufficient to protect bone health. ??The National Kidney Foundation has similarly stated that pat ients with Vitamin D concentrations <30ng/mL should be considered to be insu fficient or deficient. http://GetH[employer].com.com/nkf-guidelines http://GetH[employer].com.com/nejm-VitD The [employer] i[employer] Vitamin D Immunoassay detec [...] City/[facility]/ZIP Code [place] [address] (ABNORMAL) Comprehensive metabolic panel (non-fasting) (08/02/2018 9:51 AM EST) P athologist Signature Glucose Lvl 107 65 - 199 [facility] mg/dL [facility] Comment: Diabetes: >=200 mg/dL plus symp toms BUN 23 (H) 10 - 20 mg/dL [facility] Creatinine 1.30 0.80 - 1.50 mg/dL [facility] Sodium 128 (L) 135 - 145 mmol/L [facility] Potassium 4.9 3.5 - 5.0 mmol/L [facility] Comment: Please note: ??Patients with WBC >100,00 0 may have falsely elevated Potassium levels. ??For accurate Potassium quantif ication in these patients send serum separator tube (gold top) for subsequent determinations. ??Contact the Clinical Chemistry Laboratory if there are any qu estions. Chloride 92 (L) 98 - 107 mmol/L [facility] CO2 23 22 - 31 mmol/L [facility] Anion Gap 13 5 - 15 mmol/L [facility] Calcium 8.9 8.5 - 10.5 mg/dL [facility] Total Protein 7.4 6.1 - 8.0 gm/dL [facility] Albumin 4.1 3.2 - 5.2 gm/dL [facility] AST 21 0 - 39 unit/L [facility] ALT 20 0 - 55 unit/L [facility] Alk Phos 97 40 - 120 unit/L [facility] Total Bilirubin 1.0 0.2 - 1.3 mg/dL [facility] Estimated GFR 64 >=60 mL/min/1.73 m?? [facility] Comment: The eGFR was calculated using the CKD-EP I equation. As with all creatinine based estimates of kidney function, eGFR values calculated with the CKD-EPI equation are not accurate in patients wi th acute kidney failure, extremes of body mass or the acutely ill. http://[employer]/[facility] OK[facility] CITYnkf eGFR 74 >=60 mL/min/1.73 m?? [facility] Comment: The eGFR was calculated using the CKD-EP I equation. As with all creatinine based estimates of kidney function, eGFR values calculated with the CKD-EPI equation are not accurate in patients wi th acute kidney failure, extremes of body mass or the acutely ill. http://[employer]/[facility] [place] CITY[facility] Specimen Anatomical Collection Method Collection Time Receive d Time (Source) Location / / Volume Laterality Blood specimen 08/02/2018 9:51 AM 018 9:59 (specimen) EST AM EST Resulting Agency Comment Spec In Lab Eriberto Melgar MD CHEMISTRY ORDERABLES Performing Organization Address City/State/ZIP Code Phon e Number [place] [id number] Hemoglobin A1c (08/02/2018 9:51 AM EST) athologist Signature Hemoglobin A1C 5.3 4.3 - 5.6 [facility] [...] Mellitus, Diabetes Care 2013; 36: Suppl. 1, S67-19 Est Avg Gluc 105 mg/dL [facility] Comment: eAG equivalents for HbA1c percentages: HbA1c(%) ?eAG(mg/dL) 6.0 ?126 6.5 ?140 7.0 ?154 7.5 ?169 8.0 ?183 8.5 ?197 9.0 ?212 9.5 ?226 10.0 ? 240 Limitations: The eAG calculation has not been validated on women, individuals below 18 years old and above 70 years old, and individuals with hemoglobinopathies. Additional resources are available on [facility] ADA website. Edinson GRSISOM, Nathaniel J, Ari R, et al. ??Tr anslating the A1C assay into estimated average glucose values. ??Diabetes Care 2008:31(8):2122-8554. Specimen Anatomical Collection Method Collection Time Receive d Time (Source) Location / / Volume Laterality Blood specimen 08/02/2018 9:51 AM 018 9:59 (specimen) EST AM EST Resulting Agency Comment Spec In Lab Eriberto Melgar MD CHEMISTRY ORDERABLES Performing Organization Address City/State/[place] [address] Lipid Panel (08/02/2018 9:51 AM EST) P athologist Signature Chol, Total 142 mg/dL [facility] Comment: Lower Risk: <200 mg/dL Average Risk: 200-239 mg/dL Higher Risk: >dp=721 mg/dL Triglycerides 115 mg/dL [facility] Comment: Average Risk/Lower Risk: <150 mg/dL Borderline High Risk: 150-199 mg/dL High Risk: 200-499 mg/dL Very High Risk: >li=731 mg/dL HDL 39 mg/dL [facility] Comment: Males: ?? Higher Risk: <40 mg/dL Females: ?? HIgher Risk: <50 mg/dL LDL Cholesterol 80 mg/dL [facility] Comment: Lowest Risk: <100 mg/dL Lower Risk: 100-129 mg/dL Borderline High Risk: 130-159 mg/dL High Risk: 160-189 mg/dL Very High Risk: >xe=775 mg/dL Chol/HDL Ratio 3.6 ratio [facility] Lipid Interpretation See Note [facility] Comment: Lipid management should be guided by a p atient? s ASCVD risk, goals and preferences. ACC/AHA Guidelines recommend high intens ity statin if clinical ASCVD or LDL greater than or equal to 190 mg/dL. 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
--- OUTSIDE RECORDS SUMMARY | 2022-04-04 00:45 | XMS_ITS | Encounter Summary ---
:1965 Author Organization [facility] [place] [address] Care Team Providers Name Role Phone Anna Mullen MD Primary Care Provider Reason for Visit Reason Comments Medication Refill Encounter Details Date Type Department Care Team Description 05/12/2018 [facility] [place] [address] [place] [address] [phone] (Wo rk) Social History Tobacco Use Types [...] filedocumented in this encounter Care Teams Seed Cleaning Machine Operator Relationship Specialty Start Date End Date Anna Mullen MD PCP - General 12/03/10 [address] [place], [place] [address] documented as of this encounter
--- OUTSIDE RECORDS SUMMARY | 2022-04-04 00:45 | XMS_ITS | Encounter Summary ---
:1965 Author Organization [facility] [place] [address] Care Team Providers Name Role Phone Anna Mullen MD Primary Care Provider Encounter Details Date Type Department Care Team Description 01/13/2019 Hospital Encounter Non-Invasive [place] [facility] Chest pain, Cardiology Lab Tiffani Melendrez MD unspecified type [facility] [place] [id number] [phone] Social History Tobacco Use Types Packs/Day Years [...] type documented in this encounter Care Teams Chrome Plater Relationship Specialty Start Date End Date Anna Mullen MD PCP - General 12/03/10 [address] [place] [address] documented as of this encounter
--- OUTSIDE RECORDS SUMMARY | 2022-04-04 00:45 | XMS_ITS | Encounter Summary ---
:1965 Author Organization [facility] [place] [address] Care Team Providers Name Role Phone Anna Mullen MD Primary Care Provider Reason for Visit Diagnostic Test (Routine) - Closed Specialty Diagnoses / Procedures Referred By Contact Refer red To Contact Radiology Diagnoses Chest pain, unspecified type Geoffrey Cassidy MD [facility] Rad Nuclear Med Procedures NM Pharmacologic Stress Myocardial Perfusion [facility] [place] [address] [place] [address] Fax: Referral ID Status Reason Start Date Expiration Date Visits V isits Requested Authorized [id number] Closed Specialty 01/11/2019 03/11/2019 1 1 Service Requested Encounter Details Date Type Department Care Team Description 01/13/2019 Hospital Encounter Nuclear Medicine at Geoffrey Cassidy Mary Hitchcock MD [facility] [place] [address] CARDIOLOGY DEPT. [phone] [place], [place] [address] (Wo rk) Social History Tobacco [...] Routine documented in this encounter Care Teams Hotel Director Relationship Specialty Start Date End Date Anna Mullen MD PCP - General 12/03/10 [address] [place] [address] documented as of this encounter
--- OUTSIDE RECORDS SUMMARY | 2022-04-04 00:45 | XMS_ITS | Encounter Summary ---
:1965 Author Organization [facility] [place] [address] Care Team Providers Name Role Phone Anna Mullen MD Primary Care Provider Encounter Details Date Type Department Care Team Description 08/12/2018 Telephone Solid Organ Transpla nt at [facility] Thania Schroeder, [place] [address] Social History Tobacco Use Types Packs/Day [...] on filedocumented in this encounter Care Teams Educational Coordinator Relationship Specialty Start Date End Date Anna Mullen MD PCP - General 12/03/10 [address] [place] [address] documented as of this encounter
--- OUTSIDE RECORDS SUMMARY | 2022-04-04 00:45 | XMS_ITS | Encounter Summary ---
:1965 Author Organization [facility] [place] [address] Care Team Providers Name Role Phone Anna Mullen MD Primary Care Provider Reason for Visit Reason Comments Pancreas Transplant Follow-up Immunotherapy Encounter Details Date Type Department Care Team Description 03/11/2018 Office Visit Solid Organ Sayda Melgar replac ed by transplant; Transplant at [facility] Eriberto Stoddard MD Immunosuppression; [facility] MEDICAL Aftercare following organ transplant; [facility] [address] Prophylactic immunotherapy [place], [place] TRANSPLANT [id number] SURGERY [phone] [place], [place] [address] Social History Tobacco Use Types [...] Ugalde MD - 03/11/2018 10:40 AM EDT [facility] Transplant Medicine Follow Up Reese Shukla [id number] Transplant ID: Date: 03/11/18 Patient: Reese Shukla Transplant Date: 08/28/13 Organ(s) Pancreas [place] organ diagnosis: Diabetes Mellitus - Type I [...] diabetics, every 5 for non diabetics [] [place] kidney ultrasound looking for renal cell CA, [...] DIAGNOSTIC performed by Anna Rapp MD at [facility] ENDOSCOPY ??? PRO TRANSPLANT ALLOGRAFT PANCREAS 08/28/2013 @PANCREATIC TRANSPLANT performed by Iraj Keller MD at [facility] MAIN OR ??? PRO TRANSPLANT, PREP DONOR PANCREAS 08/28/2013 @PREPARATION CADAVERIC PANCREAS, STANDARD performed by Iraj Keller MD at [facility] MAIN OR ??? PRO UNLISTED PROCEDURE, MUSCULOSKELETAL SYSTEM, GENERAL 10 years carpel tunnel ??? PRO UPPER GI ENDOSCOPY, BIOPSY 12/31/2011 UPPER GASTROINTESTINAL ENDOSCOPY,WITH BIOPSY SINGLE OR MULTIPLE performed by CLAYTON BHAKTA at [facility] ENDOSCOPY ??? PRO UPPER GI ENDOSCOPY, BIOPSY N/A 08/15/2015 EGD WITH BIOPSY performed by Clayton Bhakta MD at [facility] ENDOSCOPY ??? SHOULDER SURGERY ??? UPPER GI ENDOSCOPY, EXAM 12/31/2011 UPPER GI ENDOSCOPY performed by CLAYTON BHAKTA at 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 Follow-up: [] 1 month [x] 6 months [] 1 year [] Other: Labs quarterly. Emili Ugalde MD I reviewed all of the above findings and assessment of Dr. Ugalde edited the above note to reflect my assessment and examination and formulated the recommendations which accurately reflect mine. 30 Min., >50% in direct face to face residential treatment counselor. documented in this encounter Plan of Treatment Not on filedocumented as of this encounter Results Urinalysis with reflex Culture (03/11/2018 8:03 AM EDT) Patholo gist Method Time Signature Glucose UA Negative Negative [facility] mg/dL [facility] Protein UA Negative Negative [facility] mg/dL [facility] Bilirubin UA Negative Negative [facility] mg/dL [facility] Comment: Clinical correlation required for positi ve Urine Bilirubin results as false positive may occur with some drugs and d rug related products. If a false positive is suspected a serum total bili sinha should be considered if clinically indicated. Urobilinogen UA Normal Normal mg/dL [facility] pH UA 6.0 5.0 - 8.0 [facility] Blood UA Negative Negative mg/dL [facility] Ketones UA Negative Negative mg/dL [facility] Nitrite UA Negative Negative [facility] Leukocytes UA Negative Negative [facility] Appearance UA Clear Clear [facility] Spec [place] UA 1.009 1.002 - 1.030 [facility] Color UA Yellow Yellow [facility] Culture Reflexed No [facility] Specimen (Source) Anatomical Collection Method Collection Time Re ceived Time Location / / Volume Laterality Urine specimen 03/11/2018 8:03 03/11/2018 8:12 obtained by clean AM EDT AM EDT catch procedure (specimen) Resulting Agency Comment Spec In Lab Eriberto Melgar MD URINE ORDERABLES Performing Organization Address City/State/[place] [address] Protein/Creatinine Ratio, urine (03/11/2018 8:03 AM EDT) P athologist Signature U Creatinine 50 mg/dL [facility] U Protein Ran <6 0 - 12 [facility] mg/dL [facility] Prot/Cre Ratio <0.1 ratio [facility] Specimen Anatomical Collection Method Collection Time Receive d Time (Source) Location / / Volume Laterality Urine specimen 03/11/2018 8:03 AM 018 8:13 (specimen) EDT AM EDT Resulting Agency Comment Spec In Lab Eriberto Melgar MD URINE ORDERABLES Performing Organization Address City/State/ZIP Code Phon e Number [address] Gold Tube HOLD (03/11/2018 8:01 AM EDT) P athologist Signature Gold Hold Sample in [facility] LABORATORY Specimen Anatomical Collection Method Collection Time Receive d Time (Source) Location / / Volume Laterality Blood specimen 03/11/2018 8:01 AM 018 8:04 (specimen) EDT AM EDT Eriberto Melgar MD CHEMISTRY ORDERABLES Performing Organization Address City/[facility]/ZIP Code Phon e Number [address] Lavender Tube HOLD (03/11/2018 8:01 AM EDT) Patholo gist Method Time Signature Lavender Hold Sample in [facility] LABORATORY Specimen Anatomical Collection Method Collection Time Receive d Time (Source) Location / / Volume Laterality Blood specimen 03/11/2018 8:01 AM 018 8:04 (specimen) EDT AM EDT Eriberto Melgar MD HEMATOLOGY ORDERABLES Performing Organization Address City/[facility]/ZIP Code Phon e Number [address] Uric acid (03/11/2018 8:01 AM EDT) P athologist Signature Uric Acid 7.5 3.5 - 8.5 [facility] mg/dL [facility] Specimen Anatomical Collection Method Collection Time Receive d Time (Source) Location / / Volume Laterality Blood specimen 03/11/2018 8:01 AM 018 8:04 (specimen) EDT AM EDT Resulting Agency Comment Spec In Lab Eriberto Melgar MD CHEMISTRY ORDERABLES Performing Organization Address City/State/[place] [address] Tacrolimus level (03/11/2018 8:01 AM EDT) P athologist Signature Tacrolimus Lvl 8.5 ng/mL [facility] Comment: Trough therapeutic: ??5-15 ng/mL Performed by ultra-performance liquid ch romatography tandem mass spectrometry (UPLCMS/MS). This test was developed and its performa nce characteristics determined by [facility]. It has not been [...] Organization Address City/[facility]/ZIP Code Phon e Number [address] (ABNORMAL) Reticulocyte Count (03/11/2018 8:01 AM EDT) Patholo gist Method Time Signature Retic Ct % 1.2 0.7 - 2.6 [facility] % [facility] Retic Ct Abs 0.060 0.030 - [facility] 0.120 [facility] x10(6)/[facility] L LABORATORY Immature Retic% 3.6 0.0 - [facility] 15.6 % [facility] Reticulated Hgb 40.3 (H) 31.3 - [facility] 40.2 pg [facility] Specimen Anatomical Collection Method Collection Time Receive d Time (Source) Location / / Volume Laterality Blood specimen 03/11/2018 8:01 AM 018 8:04 (specimen) EDT AM EDT Resulting Agency Comment Spec In Lab Eriberto Melgar MD HEMATOLOGY ORDERABLES Performing Organization Address City/[facility]/ZIP Code Phon e Number [address] Phosphorus (03/11/2018 8:01 AM EDT) P athologist Signature Phosphorus 3.2 2.5 - 4.5 [facility] mg/dL [facility] Specimen Anatomical Collection Method Collection Time Receive d Time (Source) Location / / Volume Laterality Blood specimen 03/11/2018 8:01 AM 018 8:04 (specimen) EDT AM EDT Resulting Agency Comment Spec In Lab Eriberto Melgar MD CHEMISTRY ORDERABLES Performing Organization Address City/[facility]/ZIP Code Phon e Number [address] Magnesium (03/11/2018 8:01 AM EDT) P athologist Signature Magnesium 0.71 0.69 - 1.07 [facility] mmol/L [facility] Specimen Anatomical Collection Method Collection Time Receive d Time (Source) Location / / Volume Laterality Blood specimen 03/11/2018 8:01 AM 018 8:04 (specimen) EDT AM EDT Resulting Agency Comment Spec In Lab Eriberto Melgar MD CHEMISTRY ORDERABLES Performing Organization Address City/[facility]/ZIP Code Phon e Number [address] Lipase (03/11/2018 8:01 AM EDT) P athologist Signature Lipase 21 0 - 60 [facility] Specimen Anatomical Collection Method Collection Time Receive d Time (Source) Location / / Volume Laterality Blood specimen 03/11/2018 8:01 AM 018 8:04 (specimen) EDT AM EDT Resulting Agency Comment Spec In Lab Eriberto Melgar MD CHEMISTRY ORDERABLES Performing Organization Address City/[facility]/[place] [address] (ABNORMAL) Comprehensive metabolic panel (non-fasting) (03/11/2018 8:01 AM EDT) P athologist Signature Glucose Lvl 108 65 - 199 [facility] Comment: Diabetes: >=200 mg/dL plus symp toms BUN 20 10 - 20 mg/dL [facility] Creatinine 1.14 0.80 - 1.50 mg/dL [facility] Sodium 131 (L) 135 [...] Anion Gap 12 5 - 15 mmol/L [facility] Calcium 9.7 8.5 - 10.5 mg/dL [facility] Total Protein 7.9 6.1 - 8.0 gm/dL [facility] Albumin 4.6 3.2 - 5.2 gm/dL [facility] AST 26 0 - 39 unit/L [facility] ALT 26 0 - 55 unit/L [facility] Alk Phos 107 40 - 120 unit/L [facility] Total Bilirubin 0.9 0.2 - 1.3 mg/dL [facility] Estimated GFR 75 >=60 mL/min/1.73 m?? [facility] Comment: The eGFR was calculated using the CKD-EP I equation. As with all creatinine based estimates of kidney function, eGFR values calculated with the CKD-EPI equation are not accurate in patients wi th acute kidney failure, extremes of body mass or the acutely ill. http://[employer]/DHnkdep http://[employer]/DHMCnkf eGFR 86 >=60 mL/min/1.73 m?? [facility] Comment: The eGFR was calculated using the CKD-EP I equation. As with all creatinine based estimates of kidney function, eGFR values calculated with the CKD-EPI equation are not accurate in patients wi th acute kidney failure, extremes of body mass or the acutely ill. http://[employer].Withings/DHnkdep http://[employer]/DHMCnkf Specimen Anatomical Collection Method Collection Time Receive d Time (Source) Location / / Volume Laterality Blood specimen 03/11/2018 8:01 AM 018 8:04 (specimen) EDT AM EDT Resulting Agency Comment Spec In Lab Eriberto Melgar MD CHEMISTRY ORDERABLES Performing Organization Address City/State/[place] [address] Cholesterol, total (03/11/2018 8:01 AM EDT) athologist Signature Chol, Total 150 mg/dL [facility] Comment: Lower Risk: <200 mg/dL Average Risk: 200-239 mg/dL Higher Risk: >kb=437 mg/dL Lipid Interpretation See Note [facility] Comment: Lipid management should be guided by a p atient? s ASCVD risk, goals and preferences. ACC/AHA Guidelines recommend high intens ity statin if clinical ASCVD or LDL greater than or equal to 190 mg/dL. http://[employer].Withings/FUD-XLE-Dsaebthyh Adults aged 40-75 with LDL 70-189 mg/dL should have their 10 year ASCVD risk estimated with the ACC/AHA ASCVD risk es timator http://tools.acc.org/DMKHZ-Pubh-Tagsjlug r/ Statin should be discussed if risk [...] Organization Address City/State/ZIP Code Phon e Number [place] [phone] Amylase (03/11/2018 8:01 AM EDT) P athologist Signature Amylase 63 28 - 100 [facility] unit/L [facility] Specimen Anatomical Collection Method Collection Time Receive d Time (Source) Location / / Volume Laterality Blood specimen 03/11/2018 8:01 AM 018 8:04 (specimen) EDT AM EDT Resulting Agency Comment Spec In Lab Eriberto Melgar MD CHEMISTRY ORDERABLES Performing Organization Address City/[facility]/ZIP Code Phon e Number [place] [phone] documented in this encounter Visit Diagnoses Diagnosis 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
--- OUTSIDE RECORDS SUMMARY | 2022-04-04 00:45 | XMS_ITS | Encounter Summary ---
:1965 Author Organization [facility] [place] [address] Care Team Providers Name Role Phone Anna Mullen MD Primary Care Provider Encounter Details Date Type Department Care Team Description 12/09/2018 Abstract [place] [facility] Terrence Rich, [place] [phone] Social History Tobacco Use Types Packs/Day [...] filedocumented in this encounter Care Teams [employer] Relationship Specialty Start Date End Date Anna Mullen MD PCP - General 12/03/10 [address] [place] [address] documented as of this encounter
--- OUTSIDE RECORDS SUMMARY | 2022-04-04 00:45 | XMS_ITS | Encounter Summary ---
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 C/o old scare tissue hurts with cramping with scoliosis. Now uses inhaler (inknown name) due to QUIÑONES, SOB; 107/96, drinks 3-5 lt daily. Eriberto Melgar MD - 08/02/2018 10:40 AM EST Transplant Medicine Follow Up ?? Reese Hsu [id number] 1965 ?? Transplant ID: Date: 08/02/2018 Patient: Reese Hsu ?? Transplant Date: 08/28/2013 Organ(s) Pancreas ?? [place] organ diagnosis: ? Diabetes Mellitus - Type [...] diabetics, every 5 for non diabetics [] [place] kidney ultrasound looking for renal cell CA, [...] DIAGNOSTIC performed by Anna Rapp MD at [facility] ENDOSCOPY ??? PRO TRANSPLANT ALLOGRAFT PANCREAS ?? 08/28/2013 ?? @PANCREATIC TRANSPLANT performed by Iraj Keller MD at [facility] MAIN OR ??? PRO TRANSPLANT, PREP DONOR PANCREAS ?? 08/28/2013 ?? @PREPARATION CADAVERIC PANCREAS, STANDARD performed by Iraj Keller MD at [facility] MAIN OR ??? PRO UNLISTED PROCEDURE, MUSCULOSKELETAL SYSTEM, GENERAL ?? 10 years ?? carpel tunnel ??? PRO UPPER GI ENDOSCOPY, BIOPSY ?? 12/31/2011 ?? UPPER GASTROINTESTINAL ENDOSCOPY,WITH BIOPSY SINGLE OR MULTIPLE performed by CLAYTON BHAKTA at [facility] ENDOSCOPY ??? PRO UPPER GI ENDOSCOPY, BIOPSY N/A 08/15/2015 ?? EGD WITH BIOPSY performed by Clayton Bhakta MD at [facility] ENDOSCOPY ??? SHOULDER SURGERY ? UPPER GI ENDOSCOPY, EXAM ?? 12/31/2011 ?? UPPER GI ENDOSCOPY performed by CLAYTON BHAKTA at [facility] ENDOSCOPY ? Social History: Social History [...] Verbal No ?? 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 ? Follow-up: [] 1 month [x] 6 months [] 1 year [] Other: ?? Labs quarterly. documented in this encounter Plan of Treatment Not on filedocumented as of this encounter Results Protein/Creatinine Ratio, urine (08/02/2018 9:57 AM EST) P athologist Signature U Creatinine 52 mg/dL [facility] U Protein Ran <6 0 - 12 [facility] mg/dL [facility] Prot/Cre Ratio <0.1 ratio [facility] Specimen Anatomical Collection Method Collection Time Receive d Time (Source) Location / / Volume Laterality Urine specimen 08/02/2018 9:57 AM 018 (specimen) EST 10:08 AM EST Resulting Agency Comment Spec In Lab Eriberto Melgar MD URINE ORDERABLES Performing Organization Address City/State/[place] [address] Urinalysis with reflex Culture (08/02/2018 9:57 AM EST) Patholo gist Method Time Signature Glucose UA Negative Negative [facility] mg/dL [facility] Protein UA Negative Negative [facility] mg/dL [facility] Bilirubin UA Negative Negative [facility] mg/dL [facility] Comment: Clinical correlation required for positi ve Urine Bilirubin results as false positive may occur with some drugs and d rug related products. If a false positive is suspected a serum total bili sinha should be considered if clinically indicated. Urobilinogen UA Normal Normal mg/dL [facility] pH UA 6.0 5.0 - 8.0 [facility] Blood UA Negative Negative mg/dL [facility] Ketones UA Negative Negative mg/dL [facility] Nitrite UA Negative Negative [facility] Leukocytes UA Negative Negative [facility] Appearance UA Clear Clear [facility] Spec [place] UA 1.008 1.002 - 1.030 [facility] Color UA Straw Yellow [facility] Culture Reflexed No [facility] Specimen (Source) Anatomical Collection Method Collection Time Re ceived Time Location / / Volume Laterality Urine specimen 08/02/2018 9:57 08/02/2018 obtained by clean AM EST 10:[address] catch procedure (specimen) Resulting Agency Comment Spec In Lab Eriberto Melgar MD URINE ORDERABLES Performing Organization Address City/[facility]/ZIP Code Phon e Number [address] Phosphorus, urine, random (08/02/2018 9:57 AM EST) P athologist Signature U Phosphorus 30.6 mg/dL [facility] Specimen Anatomical Collection Method Collection Time Receive d Time (Source) Location / / Volume Laterality Urine specimen 08/02/2018 9:57 AM 018 (specimen) EST 10:08 AM EST Resulting Agency Comment Spec In Lab Eriberto Melgar MD URINE ORDERABLES Performing Organization Address City/[facility]/ZIP Code Phon e Number [address] Magnesium, urine, random (08/02/2018 9:57 AM EST) P athologist Signature U Mg Ran 0.89 mmol/L [facility] Specimen Anatomical Collection Method Collection Time Receive d Time (Source) Location / / Volume Laterality Urine specimen 08/02/2018 9:57 AM 018 (specimen) EST 10:08 AM EST Resulting Agency Comment Spec In Lab Eriberto Melgar MD URINE ORDERABLES Performing Organization Address City/[facility]/ZIP Code Phon e Number [address] Calcium Creatinine Ratio, random urine (08/02/2018 9:57 AM EST) P athologist Signature U Calcium 1.5 mg/dL [facility] U Creatinine 52 mg/dL [facility] Ca/Cre Ratio 0.03 ratio [facility] Specimen Anatomical Collection Method Collection Time Receive d Time (Source) Location / / Volume Laterality Urine specimen 08/02/2018 9:57 AM 018 (specimen) EST 10:08 AM EST Resulting Agency Comment Spec In Lab Eriberto Melgar MD URINE ORDERABLES Performing Organization Address City/State/ZIP Code Phon e Number [facility] [place] [address] Lipid Panel (08/02/2018 9:51 AM EST) athologist Signature Chol, Total 142 mg/dL [facility] Comment: Lower Risk: <200 mg/dL Average Risk: 200-239 mg/dL Higher Risk: >cq=109 mg/dL Triglycerides 115 mg/dL [facility] Comment: Average Risk/Lower Risk: <150 mg/dL Borderline High Risk: 150-199 mg/dL High Risk: 200-499 mg/dL Very High Risk: >qm=127 mg/dL HDL 39 mg/dL [facility] Comment: Males: ?? Higher Risk: <40 mg/dL Females: ?? HIgher Risk: <50 mg/dL LDL Cholesterol 80 mg/dL [facility] Comment: Lowest Risk: <100 mg/dL Lower Risk: 100-129 mg/dL Borderline High Risk: 130-159 mg/dL High Risk: 160-189 mg/dL Very High Risk: >bv=386 mg/dL Chol/HDL Ratio 3.6 ratio [facility] Lipid Interpretation See Note [facility] Comment: Lipid management should be guided by a p atient? s ASCVD risk, goals and preferences. ACC/AHA Guidelines recommend high intens ity statin if clinical ASCVD or LDL greater than or equal to 190 mg/dL. http://tinyurl.com/PLX-PHF-Xcnhnsxmc Adults aged 40-75 with LDL 70-189 mg/dL should have their 10 year ASCVD risk estimated with the ACC/AHA ASCVD risk es timator http://tools.acc.org/HAULE-Fsbv-Liwlvgtk r/ Statin should be discussed if risk [...] Organization Address City/State/ZIP Code Phon e Number [place] [id number] Hemoglobin A1c (08/02/2018 9:51 [...] Mellitus, Diabetes Care 2013; 36: Suppl. 1, K41-13 Est Avg Gluc 105 mg/dL [facility] Comment: eAG equivalents for HbA1c percentages: HbA1c(%) ?eAG(mg/dL) 6.0 ?126 6.5 ?140 7.0 ?154 7.5 ?169 8.0 ?183 8.5 ?197 9.0 ?212 9.5 ?226 10.0 ? 240 Limitations: The eAG calculation has not been validated on women, individuals below 18 years old and above 70 years old, and individuals with hemoglobinopathies. Additional resources are available on [facility] website. Edinson GRISSOM, Nathaniel J, Ari R, et al. ??Tr anslating the A1C assay into estimated average glucose values. ??Diabetes Care 2008:31(8):7318-0512. Specimen Anatomical Collection Method Collection Time Receive d Time (Source) Location / / Volume Laterality Blood specimen 08/02/2018 9:51 AM 018 9:59 (specimen) EST AM EST Resulting Agency Comment Spec In Lab Eriberto Melgar MD CHEMISTRY ORDERABLES Performing Organization Address City/State/[place] [address] (ABNORMAL) Comprehensive metabolic panel (non-fasting) (08/02/2018 9:51 AM EST) P athologist Signature Glucose Lvl 107 65 - 199 [facility] mg/dL [facility] Comment: Diabetes: >=200 mg/dL plus symp toms BUN 23 (H) 10 - 20 mg/dL [facility] Creatinine 1.30 0.80 - 1.50 mg/dL [facility] Sodium 128 (L) 135 - 145 mmol/L [facility] Potassium 4.9 3.5 - 5.0 mmol/L [facility] Comment: Please note: ??Patients with WBC >100,00 0 may have falsely elevated Potassium levels. ??For accurate Potassium quantif ication in these patients send serum separator tube (gold top) for subsequent determinations. ??Contact the Clinical Chemistry Laboratory if there are any qu estions. Chloride 92 (L) 98 - 107 mmol/L [facility] CO2 23 22 - 31 mmol/L [facility] Anion Gap 13 5 - 15 mmol/L [facility] Calcium 8.9 8.5 - 10.5 mg/dL [facility] Total Protein 7.4 6.1 - 8.0 gm/dL [facility] Albumin 4.1 3.2 - 5.2 gm/dL [facility] AST 21 0 - 39 unit/L [facility] ALT 20 0 - 55 unit/L [facility] Alk Phos 97 40 - 120 unit/L [facility] Total Bilirubin 1.0 0.2 - 1.3 mg/dL [facility] Estimated GFR 64 >=60 mL/min/1.73 m?? [facility] Comment: The eGFR was calculated using the CKD-EP I equation. As with all creatinine based estimates of kidney function, eGFR values calculated with the CKD-EPI equation are not accurate in patients wi th acute kidney failure, extremes of body mass or the acutely ill. http://[employer]/[facility] STIGLERnkf eGFR 74 >=60 mL/min/1.73 m?? [facility] Comment: The eGFR was calculated using the CKD-EP I equation. As with all creatinine based estimates of kidney function, eGFR values calculated with the CKD-EPI equation are not accurate in patients wi th acute kidney failure, extremes of body mass or the acutely ill. http://[employer]/[facility] STIGLERnkf Specimen Anatomical Collection Method Collection Time Receive d Time (Source) Location / / Volume Laterality Blood specimen 08/02/2018 9:51 AM 018 9:59 (specimen) EST AM EST Resulting Agency Comment Spec In Lab Eriberto Melgar MD CHEMISTRY ORDERABLES Performing Organization Address City/State/[place] [address] (ABNORMAL) Vitamin D, 25-Hydroxy (08/02/2018 9:51 AM EST) P athologist Signature 25-OH Vit D 21 (L) 30 - 100 [facility] Total ng/mL [facility] Comment: Deficient <10 ng/mL Insufficient 10 to 29 ng/mL Sufficient 30 to 100 ng/mL Potential Intoxication >100 ng/mL According to the [place] National Osteoporosi s Foundation, Vitamin D concentrations >30 ng/mL are sufficient to protect bone health. ??The National Kidney Foundation has similarly stated that pat ients with Vitamin D concentrations <30ng/mL should be considered to be insu fficient or deficient. http://[employer]/nkf-guidelines http://[employer]/nejm-VitD The [employer] Vitamin D Immunoassay detec [...] MD CHEMISTRY ORDERABLES Performing Organization Address City/[facility]/ZIP Code Phon e Number [address] Uric acid (08/02/2018 9:51 AM EST) P athologist Signature Uric Acid 7.3 3.5 - 8.5 [facility] mg/dL [facility] Specimen Anatomical Collection Method Collection Time Receive d Time (Source) Location / / Volume Laterality Blood specimen 08/02/2018 9:51 AM 018 9:59 (specimen) EST AM EST Resulting Agency Comment Spec In Lab Eriberto Melgar MD CHEMISTRY ORDERABLES Performing Organization Address City/[facility] Phon e Number [address] Tacrolimus level (08/02/2018 9:51 AM EST) P athologist Signature Tacrolimus Lvl 9.9 ng/mL [facility] Comment: Trough therapeutic: ??5-15 ng/mL Performed by ultra-performance liquid ch romatography tandem mass spectrometry (UPLCMS/MS). This test was developed and its performa nce characteristics determined by [facility]. It has not been [...] MD CHEMISTRY ORDERABLES Performing Organization Address City/[facility]/ZIP Code Phon e Number [address] Reticulocyte Count (08/02/2018 9:51 AM EST) P athologist Signature Retic Ct % 1.3 0.7 - 2.6 [facility] Retic Ct Abs 0.050 0.030 - [facility] 0.120 [facility] x10(6)/[facility] LABORATORY Immature Retic% 6.8 0.0 - 15.6 [facility] Reticulated Hgb 37.0 31.3 - [facility] 40.2 pg [facility] Specimen Anatomical Collection Method Collection Time Receive d Time (Source) Location / / Volume Laterality Blood specimen 08/02/2018 9:51 AM 018 9:59 (specimen) EST AM EST Resulting Agency Comment Spec In Lab Eriberto Melgar MD HEMATOLOGY ORDERABLES Performing Organization Address City/[facility] Phon e Number [address] (ABNORMAL) PTH (08/02/2018 9:51 AM EST) P athologist Signature PTH 79 (H) 15 - 65 [facility] pg/mL [facility] Specimen Anatomical Collection Method Collection Time Receive d Time (Source) Location / / Volume Laterality Blood specimen 08/02/2018 9:51 AM 018 9:59 (specimen) EST AM EST Resulting Agency Comment Spec In Lab Eriberto Melgar MD CHEMISTRY ORDERABLES Performing Organization Address City/[facility]/[place] [address] Phosphorus (08/02/2018 9:51 AM EST) P athologist Signature Phosphorus 3.2 2.5 - 4.5 [facility] mg/dL [facility] Specimen Anatomical Collection Method Collection Time Receive d Time (Source) Location / / Volume Laterality Blood specimen 08/02/2018 9:51 AM 018 9:59 (specimen) EST AM EST Resulting Agency Comment Spec In Lab Eriberto Melgar MD CHEMISTRY ORDERABLES Performing Organization Address City/[facility]/ZIP Code Phon e Number [address] Magnesium (08/02/2018 9:51 AM EST) athologist Signature Magnesium 0.80 0.69 - 1.07 [facility] mmol/L [facility] Specimen Anatomical Collection Method Collection Time Receive d Time (Source) Location / / Volume Laterality Blood specimen 08/02/2018 9:51 AM 018 9:59 (specimen) EST AM EST Resulting Agency Comment Spec In Lab Eriberto Melgar MD CHEMISTRY ORDERABLES Performing Organization Address City/[facility]/ZIP Code Phon e Number [address] Lipase (08/02/2018 9:51 AM EST) athologist Signature Lipase 19 0 - 60 [facility] unit/[facility] Specimen Anatomical Collection Method Collection Time Receive d Time (Source) Location / / Volume Laterality Blood specimen 08/02/2018 9:51 AM 018 9:59 (specimen) EST AM EST Resulting Agency Comment Spec In Lab Eriberto Melgar MD CHEMISTRY ORDERABLES Performing Organization Address City/[facility]/ZIP Code Phon e Number [address] Gold Tube HOLD (08/02/2018 9:51 AM EST) P athologist Signature Gold Hold Sample in [facility] LABORATORY Specimen Anatomical Collection Method Collection Time Receive d Time (Source) Location / / Volume Laterality Blood specimen 08/02/2018 9:51 AM 9:59 (specimen) EST AM EST Eriberto Melgar MD CHEMISTRY ORDERABLES Performing Organization Address City/[facility]/ZIP Code Phon e Number [address] Amylase (08/02/2018 9:51 AM EST) P athologist Signature Amylase 49 28 - 100 [facility] unit/L [facility] Specimen Anatomical Collection Method Collection Time Receive d Time (Source) Location / / Volume Laterality Blood specimen 08/02/2018 9:51 AM 018 9:59 (specimen) EST AM EST Resulting Agency Comment Spec In Lab Eriberto Melgar MD CHEMISTRY ORDERABLES Performing Organization Address [facility] Phon e Number [address] 1,25-dihydroxycholecalciferol (08/02/2018 9:51 AM EST) athologist Signature Vit D ,25 45 18 - 64 [facility] pg/mL [facility] Comment: ADDITIONAL INFORMATIO N This test was developed and its performa nce characteristics determined by [facility] in a manner co nsistent with CLIA requirements. This test has not been gene ared or approved by the U.S. Food and Drug Administration. 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
--- OUTSIDE RECORDS SUMMARY | 2022-04-04 00:45 | XMS_ITS | Encounter Summary ---
:1965 Author Organization [facility] [place] [address] Care Team Providers Name Role Phone Anna Mullen MD Primary Care Provider Reason for Referral Diagnostic Test (Routine) - Closed Specialty Diagnoses / Procedures Referred By Contact Refer red To Contact Radiology Diagnoses Chest pain, unspecified type Geoffrey Cassidy MD [facility] Rad Nuclear Med Procedures NM Pharmacologic Stress CT Component [facility] CARDIOLOGY DEPT. [address] [phone] Fax: Referral ID Status Reason Start Date Expiration Date Visits V isits Requested Authorized [id number] Closed Specialty 01/04/2019 01/04/2020 1 1 Service Requested Reason for Visit Diagnostic Test (Routine) - Closed Specialty Diagnoses / Procedures Referred By Contact Refer red To Contact Radiology Diagnoses Chest pain, unspecified type Geoffrey Cassidy MD [facility] Rad Nuclear Med Procedures NM Pharmacologic Stress CT Component [facility] [place] [address] [place] [address] Fax: Referral ID Status Reason Start Date Expiration Date Visits V isits Requested Authorized [id number] Closed Specialty 01/04/2019 01/04/2020 1 1 Service Requested Encounter Details Date Type Department Care Team Description 01/13/2019 Hospital Encounter Nuclear Medicine at [place], Geoffrey Chest pain, Tiffani Melendrez MD unspecified type [address] [facility] [address] [place], [place] CARDIOLOGY DEPT. 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
--- OUTSIDE RECORDS SUMMARY | 2022-04-04 00:45 | XMS_ITS | Encounter Summary ---
:1965 Author Organization [facility] [place] [address] Care Team Providers Name Role Phone Anna Mullen MD Primary Care Provider Encounter Details Date Type Department Care Team Description 09/15/2017 Laboratory Appointment Lab 3L [facility] Pancreas replaced by [facility] [place] [id number] Social History Tobacco Use Types Packs/Day Years [...] (ABNORMAL) Differential, Automated (09/15/2017 9:11 AM EST) [facility] Method Time Signature Neutrophils % 38.6 % [facility] Neutr Abs (ANC) 2.69 1.70 - [facility] 6.10 [facility] x10(3)/[facility] LABORATORY Lymphocytes % 47.2 % [facility] Lymphocytes Abs 3.3 (H) 0.9 - 3.2 [facility] x10(3)/[facility] LABORATORY Monocytes % 9.8 % [facility] Monocyte Abs 0.7 0.3 - 0.9 [facility] x10(3)/[facility] LABORATORY Eosinophils % 3.6 % [facility] Eosinophils Abs 0.2 0.0 - 0.4 [facility] x10(3)/[facility] LABORATORY Basophils % 0.4 % [facility] Basophils Abs 0.0 0.0 - 0.1 [facility] x10(3)/[facility] LABORATORY Immature Gran % 0.40 % [facility] [...] Kym Gran Abs 0.03 0.00 - 0.04 x10(3)/[facility] LABOR[facility]ORY Specimen Anatomical Collection Method Collection Time Receive d Time (Source) Location / / Volume Laterality Blood specimen 09/15/2017 9:11 AM 018 9:22 (specimen) EST AM EST Resulting Agency Comment Spec In Lab Eriberto Melgar MD HEMATOLOGY ORDERABLES Performing Organization Address City/State/[place] [address] (ABNORMAL) Hemogram (09/15/2017 9:11 AM EST) Analysis Performed At Patho logist Time Signature WBC 7.0 4.0 - 9.5 [facility] x10(3)/[facility] LABORATORY RBC 4.45 (L) 4.58 - [facility] [place] 5.54 [facility] x10(6)/[facility] LABORATORY Hemoglobin 13.0 (L) 13.7 - [facility] 16.5 gm/dL [facility] Hematocrit 38.4 (L) 40.5 - [facility] 48.5 % [facility] MCV 86.3 82.9 - [facility] 93.1 [facility] LABORATORY MCH 29.2 27.5 - [facility] 32.1 pg [facility] MCHC 33.9 32.0 - [facility] 35.7 gm/dL [facility] Platelets 255 145 - 357 [facility] x10(3)/[facility] LABORATORY RDWSD 41.1 36.0 - [facility] 45.0 [facility] LABORATORY RDWCV 13.2 11.4 - [facility] 13.8 % [facility] MPV 10.0 7.6 - 12.9 [facility] LABORATORY nRBC % Auto 0.0 % [facility] nRBC Abs Auto 0.000 0.000 - [facility] 0.000 [facility] x10(3)/[facility] LABORATORY Specimen Anatomical Collection Method Collection Time Receive d Time (Source) Location / / Volume Laterality Blood specimen 09/15/2017 9:11 AM 018 9:22 (specimen) EST AM EST Resulting Agency Comment Spec In Lab Eriberto Melgar MD HEMATOLOGY ORDERABLES Performing Organization Address City/State/[place] [address] Gold Tube HOLD (09/15/2017 9:11 AM EST) P athologist Signature Gold Hold Sample in [facility]. [facility] Specimen Anatomical Collection Method Collection Time Receive d Time (Source) Location / / Volume Laterality Blood specimen 09/15/2017 9:11 AM 018 9:23 (specimen) EST AM EST Eriberto Melgar MD CHEMISTRY ORDERABLES Performing Organization Address [facility] Phon e Number [address] Lavender Tube HOLD (09/15/2017 9:11 AM EST) Patholo gist Method Time Signature Lavender Hold Sample in [facility]. [facility] Specimen Anatomical Collection Method Collection Time Receive d Time (Source) Location / / Volume Laterality Blood specimen 09/15/2017 9:11 AM 018 9:22 (specimen) EST AM EST Eriberto Melgar MD HEMATOLOGY ORDERABLES Performing Organization Address [facility] [place] [address] (ABNORMAL) Vitamin D, 25-Hydroxy (09/15/2017 9:11 AM EST) P athologist Signature 25-OH Vit D 22 (L) 30 - 100 [facility] Total ng/mL [facility] Comment: Deficient <10 ng/mL Insufficient 10 to 29 ng/mL Sufficient 30 to 100 ng/mL Potential Intoxication >100 ng/mL According to the [place] National Osteoporosi s Foundation, Vitamin D concentrations >30 ng/mL are sufficient to protect bone health. ??The National Kidney Foundation has similarly stated that pat ients with Vitamin D concentrations <30ng/mL should be considered to be insu fficient or deficient. http://britebill.com/nkf-guidelines http://britebill.com/nejm-VitD The IDS iSYS Vitamin D Immunoassay detec [...] Organization Address City/State/ZIP Code Phon e Number [address] Uric acid (09/15/2017 9:11 AM EST) P athologist Signature Uric Acid 7.7 3.5 - 8.5 [facility] mg/dL [facility] Specimen Anatomical Collection Method Collection Time Receive d Time (Source) Location / / Volume Laterality Blood specimen 09/15/2017 9:11 AM 018 9:23 (specimen) EST AM EST Resulting Agency Comment Spec In Lab Eriberto Melgar MD CHEMISTRY ORDERABLES Performing Organization Address City/[facility]/ZIP Code Phon e Number [address] Tacrolimus level (09/15/2017 9:11 AM EST) athologist [facility] Tacrolimus Lvl 8.3 ng/mL [facility]/ZIP Code Phon e Number [address] Reticulocyte Count (09/15/2017 9:11 AM EST) P athologist Signature Retic Ct % 1.0 0.7 - 2.6 [facility] Retic Ct Abs 0.040 0.030 - [facility] 0.120 [facility] x10(6)/[facility] LABORATORY Immature Retic% 4.9 0.0 - 15.6 [facility] K % [facility] Reticulated Hgb 34.1 31.3 - [facility] 40.2 pg [facility] Specimen Anatomical Collection Method Collection Time Receive d Time (Source) Location / / Volume Laterality Blood specimen 09/15/2017 9:11 AM 018 9:22 (specimen) EST AM EST Resulting Agency Comment Spec In Lab Eriberto Melgar MD HEMATOLOGY ORDERABLES Performing Organization Address City/[facility]/ZIP Code Phon e Number [address] (ABNORMAL) PTH (09/15/2017 9:11 AM EST) P athologist Signature PTH 85 (H) 15 - 65 [facility] pg/mL [facility] Specimen Anatomical Collection Method Collection Time Receive d Time (Source) Location / / Volume Laterality Blood specimen 09/15/2017 9:11 AM 018 9:22 (specimen) EST AM EST Resulting Agency Comment Spec In Lab Eriberto Melgar MD CHEMISTRY ORDERABLES Performing Organization Address City/State/[place] [address] Phosphorus (09/15/2017 9:11 AM EST) P athologist Signature Phosphorus 3.1 2.5 - 4.5 [facility] mg/dL [facility] Specimen Anatomical Collection Method Collection Time Receive d Time (Source) Location / / Volume Laterality Blood specimen 09/15/2017 9:11 AM 018 9:23 (specimen) EST AM EST Resulting Agency Comment Spec In Lab Eriberto Melgar MD CHEMISTRY ORDERABLES Performing Organization Address City/[facility]/ZIP Code Phon e Number [address] BKV Quant Blood (09/15/2017 9:11 AM EST) Component Value Ref Test Analysis Performed At Patholo gist Range Method Time Signature BKV Blood Not Detected [facility] LABORATORY BKV Blood BK Virus Plasma Result Interpretation [facility] Result: BK Virus not detected HOSPITAL Specimen type: plasma LABORATO RY Assay Range: 2.83-8.83 log copies/mL (6.8x10^2 - 6.8x10^8 co pies/mL) Methods: Quantitative real-time polymerase chain react ion (PCR) of viral DNA isolated from plasma was performed using [employer] (formerly, [employer]) BKV analyte-specific reagents and the [employer] 7 500 FAST Real-Time PCR System. In [...] and Advanc ed Technology (CGAT) Laboratory at [facility]. It has not been cleared or approved [...] Organization Address City/State/ZIP Code Phon e Number [address] Magnesium (09/15/2017 9:11 AM EST) P athologist Signature Magnesium 0.83 0.69 - 1.07 [facility] mmol/L [facility] Specimen Anatomical Collection Method Collection Time Receive d Time (Source) Location / / Volume Laterality Blood specimen 09/15/2017 9:11 AM 018 9:23 (specimen) EST AM EST Resulting Agency Comment Spec In Lab Eriberto Melgar MD CHEMISTRY ORDERABLES Performing Organization Address City/[facility]/ZIP Code Phon e Number [address] (ABNORMAL) Lipid Panel (09/15/2017 9:11 AM EST) [facility] gist Method Time Signature Chol, Total 151 <=239 [place] mg/dL [facility]ORY Triglycerides 110 <=199 [facility] mg/dL [facility] HDL 36 (L) >=40 [place] mg/dL [facility] LDL Cholesterol 93 <=190 [facility] mg/dL [facility] Chol/HDL Ratio 4.2 ratio [facility] Lipid See Note [place] Interpretation [facility] Comment: Lipid management should be guided by a p atient? s ASCVD risk, goals and preferences. ACC/AHA Guidelines recommend high intens ity statin if clinical ASCVD or LDL greater than or equal to 190 mg/dL. http://britebill.Narvar/TGW-WQP-Kxnaxclpz Adults aged 40-75 with LDL 70-189 mg/dL should have their 10 year ASCVD risk estimated with the ACC/AHA ASCVD risk es timator http://tools.acc.org/YSRMR-Dmbq-Pidiexpq r/ Statin should be discussed if risk [...] Organization Address City/State/ZIP Code Phon e Number [place] [id number]OSP[address] LAB[address]ORY Drive Lipase (09/15/2017 9:11 AM EST) athologist Signature Lipase 24 0 - 60 [facility] unit/L [facility] Specimen Anatomical Collection Method Collection Time Receive d Time (Source) Location / / Volume Laterality Blood specimen 09/15/2017 9:11 AM 018 9:23 (specimen) EST AM EST Resulting Agency Comment Spec In Lab Eriberto Melgar MD CHEMISTRY ORDERABLES Performing Organization Address City/State/[place] [address] Hemoglobin A1c (09/15/2017 9:11 AM EST) athologist Signature Hemoglobin A1C 5.4 4.3 - 5.6 [facility]ORY [...] 1, S67-74 Est Avg Gluc 108 mg/dL [facility] Comment: eAG equivalents for HbA1c percentages: HbA1c(%) ?eAG(mg/dL) 6.0 ?126 6.5 ?140 7.0 ?154 7.5 ?169 8.0 ?183 8.5 ?197 9.0 ?212 9.5 ?226 10.0 ? 240 Limitations: The eAG calculation has not been validated on women, individuals below 18 years old and above 70 years old, and individuals with hemoglobinopathies. Additional resources are available on [facility] ADA website. Edinson GRISSOM, Nathaniel J, Ari R, et al. ??Tr anslating the A1C assay into estimated average glucose values. ??Diabetes Care 2008:31(8):8129-9089. Specimen Anatomical Collection Method Collection Time Receive d Time (Source) Location / / Volume Laterality Blood specimen 09/15/2017 9:11 AM 018 9:22 (specimen) EST AM EST Resulting Agency Comment Spec In Lab Eriberto Melgar MD CHEMISTRY ORDERABLES Performing Organization Address City/State/ZIP Code Phon e Number [place] [phone]OS[address]ORY [address] (ABNORMAL) CMP w/fasting Glucose (09/15/2017 9:11 AM EST) athologist Signature Glucose 116 (H) 65 - 99 [facility] Fasting mg/dL [facility] Comment: ?Fasting* Glucose Interpretive C [...] of Diabetes Mellitus, Position Statement from the [place] Diabetes Association. ??Diabete s Care, Volume 33, Supplement 1, Aug 2009 BUN 15 10 - 20 mg/dL [facility] Creatinine 1.17 0.80 - 1.50 mg/dL [facility] Sodium 134 (L) 135 - 145 mmol/L [facility] Potassium 4.5 3.5 - 5.0 mmol/L [facility] [...] Anion Gap 10 5 - 15 mmol/L [facility] Calcium 9.0 8.5 - 10.5 mg/dL [facility] Total Protein 7.4 6.1 - 8.0 gm/dL [facility] Albumin 4.1 3.2 - 5.2 gm/dL [facility] AST 34 0 - 39 unit/L [facility] ALT 28 0 - 55 unit/L [facility] Alk Phos 151 (H) 40 - 120 unit/L [facility] Total Bilirubin 0.9 0.2 - 1.3 mg/dL [facility] Estimated GFR >60 >=60 [facility] Comment: The reported eGFR should be multiplied b y 1.2 for patients. The MDRD is not an appropriate measure o f renal function for patients with body mass extremes or in patients with acute kidney failure. http://[employer]/DHnkdep http://[employer]/DHMCnkf Specimen Anatomical Collection Method Collection Time Receive d Time (Source) Location / / Volume Laterality Blood specimen 09/15/2017 9:11 AM 018 9:23 (specimen) EST AM EST Resulting Agency Comment Spec In Lab Eriberto Melgar MD CHEMISTRY ORDERABLES Performing Organization Address City/State/[place] [address] Amylase (09/15/2017 9:11 AM EST) P athologist Signature Amylase 55 28 - 100 [facility] unit/L [facility] Specimen Anatomical Collection Method Collection Time Receive d Time (Source) Location / / Volume Laterality Blood specimen 09/15/2017 9:11 AM 018 9:23 (specimen) EST AM EST Resulting Agency Comment Spec In Lab Eriberto Melgar MD CHEMISTRY ORDERABLES Performing Organization Address City/State/ZIP Code Phon e Number [address] 1,25-dihydroxycholecalciferol (09/15/2017 9:11 AM EST) P athologist Signature Vit D 59 18 - 64 [facility] [place] pg/mL [facility] Comment: ADDITIONAL INFORMATIO N This test was developed and its performa nce characteristics determined by [facility] in a manner co nsistent with CLIA requirements. This test has not been gene ared or approved by the U.S. Food and Drug Administration. Test Performed by: Formerly named [facility] [address] [place] [address] 90 Specimen Anatomical Collection Method Collection Time Receive d Time (Source) Location / / Volume Laterality Blood specimen 09/15/2017 9:11 AM 018 1:38 (specimen) EST PM EST Resulting Agency Comment Spec In Lab Eriberto Melgar MD CHEMISTRY ORDERABLES Performing Organization Address City/[facility]/[place] [address] (ABNORMAL) Urinalysis with reflex Culture (09/15/2017 9:08 AM EST) [facility] gist Method Time Signature Glucose UA Negative Negative [facility] [place] mg/dL [facility] Protein UA Negative Negative [facility] Bilirubin UA Negative Negative [facility] Comment: Clinical correlation required for positi ve Urine Bilirubin results as false positive may occur with some drugs and d rug related products. If a false positive is suspected a serum total bili sinha should be considered if clinically indicated. Urobilinogen UA >=4.0 (A) Normal mg/dL [facility] pH UA 6.0 5.0 - 8.0 [facility] Blood UA Negative Negative mg/dL [facility] Ketones UA Negative Negative mg/dL [facility] Nitrite UA Negative Negative [facility] Leukocytes UA Negative Negative [facility] LABORATORY Appearance UA Clear Clear [facility] Spec [place] UA 1.015 1.002 - 1.030 [facility] Color UA Yellow Yellow [facility] Culture Reflexed No [facility] Specimen (Source) Anatomical Collection Method Collection Time Re ceived Time Location / / Volume Laterality Urine specimen 09/15/2017 9:08 09/15/2017 9:16 obtained by clean AM EST AM EST catch procedure (specimen) Resulting Agency Comment Spec In Lab Eriberto Melgar MD URINE ORDERABLES Performing Organization Address City/[facility]/ZIP Code Phon e Number [address] Protein/Creatinine Ratio, urine (09/15/2017 9:08 AM EST) P athologist Signature U Creatinine 164 mg/dL [facility] U Protein Ran 12 0 - 12 [facility] mg/dL [facility] Prot/Cre Ratio <0.1 ratio [facility] Specimen Anatomical Collection Method Collection Time Receive d Time (Source) Location / / Volume Laterality Urine specimen 09/15/2017 9:08 AM 018 9:16 (specimen) EST AM EST Resulting Agency Comment Spec In Lab Eriberto Melgar MD URINE ORDERABLES Performing Organization Address City/[facility]/ZIP Code Phon e Number [address] Phosphorus, urine, random (09/15/2017 [...] Organization Address City/State/[place] [address] Calcium Creatinine Ratio, random urine (09/15/2017 9:08 AM EST) P athologist Signature U Calcium 1.9 mg/dL [facility] [...] Melgar MD URINE ORDERABLES Performing Organization Address City/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
--- OUTSIDE RECORDS SUMMARY | 2022-04-04 00:45 | XMS_ITS | Encounter Summary ---
:1965 Author Organization [facility] [place] [address] Care Team Providers Name Role Phone Anna Mullen MD Primary Care Provider Reason for Referral Diagnostic Test (Routine) - Closed Specialty Diagnoses / Procedures Referred By Contact Refer red To Contact Radiology Diagnoses Chest pain, unspecified type Geoffrey Cassidy MD [facility] Rad Nuclear Med Procedures NM Pharmacologic Stress Myocardial Perfusion [facility] CARDIOLOGY DEPT. [place], [place] [id number] [place] [phone] Fax: Referral ID Status Reason Start Date Expiration Date Visits V isits Requested Authorized [id number] Closed Specialty 01/11/2019 03/11/2019 1 1 Service Requested Diagnostic Test (Routine) - Closed Specialty Diagnoses / Procedures Referred By Contact Refer red To Contact Radiology Diagnoses Chest pain, unspecified type Geoffrey Cassidy MD [facility] Rad Nuclear Med Procedures NM Pharmacologic Stress CT Component [facility] DR Hair [facility] [place] [address] [place] [address] Fax: Referral ID Status Reason Start Date Expiration Date Visits V isits Requested Authorized [id number] Closed Specialty 01/04/2019 01/04/2020 1 1 Service Requested Reason for Visit Reason Comments Chest Pain Ekg Consultation (Urgent) - Specialty Diagnoses / Procedures Referred By Contact Refer red To Contact Cardiology Diagnoses Chest pain chest pain Anna Mullen MD [place], Geoffrey Melendrez MD Procedures none [address] [facility] [address] [place] [address] Phone: Fax: Referral ID Status Reason Start Date Expiration Date Visits V isits Requested Authorized [id number] Consult, Test 12/27/2018 12/27/2019 6 6 & Treat PCP Updated and/or Approved Encounter Details Date Type Department Care Team Description 01/04/2019 Office Visit Cardiology at [facility] Geoffrey Cassidy, Chest pain, unspecified type (Primary Dx); [facility] [place] [address] CARDIOLOGY DEPT. [phone] [place] [address] Social History Tobacco Use Types [...] from the original note were not included. [facility] [place] [address] CARDIOLOGY OUTPATIENT NOTE PRIMARY CARE PROVIDER: Anna [...] and by the time he arrived at [facility] chest pain had significantly improved. 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 Lives with MEDICATIONS: Current Outpatient Medications [...] 356 QTC Calculated (Bezet) 373 Calculated P Jackson 60 Calculated R Jackson 80 Calculated T Jackson 59 INTERPRETATION Normal sinus rhythm Normal ECG When compared with ECG of 27-AUG-2013 23:47, QT has shortened Assessment and Plan: 1. Chest pain: The pain is very atypical. Extensive work-up in the [facility] emergency room as described above which was negative. His EKG remains normal today. Cardiac catheterization in 2006, 2008 at [facility] showed normal coronaries. Given his long history [...] below. ? Electronically signed by: [facility] ([phone]), at 01/13/2019 11:58 AM Narrative 01/13/2019 11:58 [...] number below. Electronically signed by: [facility] ([phone]), at 01/13/2019 11:58 AM Geoffrey Cassidy MD [facility] ORDERABLES Nuclear Pharmacologic Stress Cardiology (01/13/2019 8:31 [...] below. ? Electronically signed by: [facility] ([phone]), at 01/13/2019 11:58 AM Narrative 01/13/2019 11:58 [...] number below. Electronically signed by: [facility] ([phone]), at 01/13/2019 11:58 AM Geoffrey Cassidy MD IMG NM ORDERABLES EKG 12 Lead (01/04/2019 10:18 AM EDT) [facility] Method Time Signature Ventricular rate 66 BPM MUSE SYSTEM Atrial Rate 66 BPM MUSE SYSTEM P-R Interval 178 ms MUSE SYSTEM QRS Duration 90 ms MUSE SYSTEM Q-T Interval 356 ms MUSE SYSTEM QTC Calculated 373 ms MUSE SYSTEM (Bezet) Calculated P Jackson 60 degrees MUSE SYSTEM Calculated R Jackson 80 degrees MUSE SYSTEM Calculated T Jackson 59 degrees MUSE SYSTEM INTERPRETATION Normal sinus [...] type documented in this encounter Care Teams Prosecuting Attorney Relationship Specialty Start Date End Date Anna Mullen MD PCP - General 12/03/10 [address] [place] [address] documented as of this encounter
--- OUTSIDE RECORDS SUMMARY | 2022-04-04 00:45 | XMS_ITS | Encounter Summary ---
:1965 Author Organization [facility] Address [address] [place] [address] Care Team Providers Name Role Phone Anna Mullen MD Primary Care Provider Reason for Visit Reason Comments Pancreas Transplant Follow-up Immunotherapy Post Hospital Discharge Encounter Details Date Type Department Care Team Description 09/15/2017 Office Visit Solid Organ Eriberto Melgar pression; Transplant at [facility] [place] Arlyn 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; [facility] Aft ercare following organ transplant; Drive Prophylactic immunotherapy; [place], [place] TRANSPLANT SURGE RY Coxsackie virus infection [id number] [place] [address] [phone] Social History Tobacco Use Types Packs/Day Years [...] Melgar MD - 09/15/2017 10:00 AM EST [facility] Transplant Nephrology Follow Up ? Reese Hsu [id number] 1965 ? Transplant ID: Patient:?? Reese Hsu Transplant Date: ?? 08/28/2013? Organ(s) ?? Pancreas? [place] organ diagnosis: ?? Diabetes Mellitus - Type [...] is now followed by a chiropractor in [place], [place]. ? Interim Hx: He feels as though he has recovered nicely over the last 2-3 weeks since discharge from for coxsackie associated pleurodynia. 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 His review of systems were neither positive [...] for non diabetics; needs one this year [place] kidney ultrasound looking for renal cell CA, [...] Office Visit from 09/15/2017 in Transplant at [place] Weight 93.9 kg (207 lb) Temp 36.8 [...] UA Latest Ref Range: Clear Clear Spec [place] UA Latest Ref Range: 1.002 - 1.030 [...] site documented in this encounter Care Teams Environmental Compliance Specialist Relationship Specialty Start Date End Date Anna Mullen MD PCP - General 12/03/10 [address] [place] [address] documented as of this encounter
--- OUTSIDE RECORDS SUMMARY | 2022-04-04 00:45 | XMS_ITS | Encounter Summary ---
:1965 Author Organization [facility] [place] [address] Care Team Providers Name Role Phone Anna Mullen MD Primary Care Provider Reason for Visit Reason Comments Medication Refill Encounter Details Date Type Department Care Team Description 02/10/2019 Refill Solid [facility] [place] [address] [place] [address] [phone] (Wo rk) Social History Tobacco Use Types [...] on filedocumented in this encounter Care Teams J2Ee Android Developer Relationship Specialty Start Date End Date Anna Mullen MD PCP - General 12/03/10 [address] [place], [place] [address] documented as of this encounter
--- OUTSIDE RECORDS SUMMARY | 2022-04-04 00:46 | XMS_ITS | Encounter Summary ---
:1965 Author Organization [facility] [place] [address] Care Team Providers Name Role Phone Anna Mullen MD Primary Care Provider Encounter Details Date Type Department Care Team Description 07/29/2017 Hospital Encounter [place] [address] Social History Tobacco Use Types Packs/Day [...] City/State/ZIP Code Phon e Number JANE J[place], [place] documented in this encounter Visit Diagnoses Not on filedocumented in this encounter Care Teams Cmm Operator Relationship Specialty Start Date End Date Anna Mullen MD PCP - General 12/03/10 [address] [place] [address] documented as of this encounter
--- OUTSIDE RECORDS SUMMARY | 2022-04-04 00:46 | XMS_ITS | Encounter Summary ---
:1965 Author Organization [facility] [place] [address] Care Team Providers Name Role Phone Anna Mullen MD Primary Care Provider Encounter Details Date Type Department Care Team Description 07/17/2017 Hospital Encounter [place] [address] Social History Tobacco Use Types Packs/Day [...] Organization Address City/State/ZIP Code Phon e Number [facility] JANE [place], [place] documented in this encounter Visit Diagnoses Not on filedocumented in this encounter Care Teams Cotton Roll Packer Relationship Specialty Start Date End Date Anna Mullen MD PCP - General 12/03/10 [address] [place] [address] documented as of this encounter
--- OUTSIDE RECORDS SUMMARY | 2022-04-04 00:46 | XMS_ITS | Encounter Summary ---
:1965 Author Organization [facility] [place] [address] Care Team Providers Name Role Phone Anna Mullen MD Primary Care Provider Reason for Visit Reason Comments Medication Refill Encounter Details Date Type Department Care Team Description 12/17/2016 Refill Solid [facility] [place] [address] [place] [address] [phone] (Wo rk) Social History Tobacco Use Types [...] on filedocumented in this encounter Care Teams Road Machinery Inspector Relationship Specialty Start Date End Date Anna Mullen MD PCP - General 12/03/10 [address] [place], [place] [address] documented as of this encounter
--- OUTSIDE RECORDS SUMMARY | 2022-04-04 00:46 | XMS_ITS | Encounter Summary ---
:1965 Author Organization [facility] [place] [address] Care Team Providers Name Role Phone Anna Mullen MD Primary Care Provider Encounter Details Date Type Department Care Team Description 12/06/2016 Hospital [place] [address] Social History Tobacco Use Types Packs/Day [...] Sig Dispensed Refills Start Date End Date Magnesium Gluconate Take 1 tablet by 30 [...] tablet Dx code :250.60 gabapentin (NEURONTIN) Take 300 mg by mouth 0 09/15/2017 300 mg every morning. 100 CapsuleIndications: 900 mg in the morning mg in AM and 100mg in and 900 mg at night. PM Indications: 900 mg in AM and 100mg in PM traZODone (DESYREL) 50 TAKE ONE TABLET BY 90 tablet 3 05/2105/14/2017 mg Tablet MOUTH EVERY EVENING CELLCEPT 250 mg Capsule TAKE TWO CAPSULES BY 360 capsule 2 0 03/12/2016 12/17/2016 MOUTH TWICE A DAY PROGRAF 1 mg Capsule TAKE TWO CAPSULES BY 120 capsule 11 08/201503/05/2017 MOUTH TWICE A DAY aspirin 81 mg [...] Associated Diagnosis Comme nts TACROLIMUS LEVEL Routine 12/06/2016 10:52 AM Resu lts for this EDT procedure are i n the results section. documented in this encounter Results Tacrolimus level (12/06/2016 10:52 AM EDT) P athologist Signature Tacrolimus Lvl 6.9 ng/mL [facility] Comment: Trough therapeutic: ??5-15 ng/mL Performed by ultra-performance liquid ch romatography tandem mass spectrometry (UPLCMS/MS). This test was developed and its performa nce characteristics determined by [facility]. It has not been cleared or approved by the FDA. The laboratory is regulated under CLIA a s qualified to perform high-complexity testing. This test is used for clinical purposes. It should not be regarded as investigational or for research. Specimen Anatomical Collection Method Collection Time Receive d Time (Source) Location / / Volume Laterality Blood specimen Venous Draw / 12/06/2016 10:52 12/10/19 17 7:30 (specimen) Unknown AM EDT AM EDT Resulting Agency Comment Spec In Lab Eriberto Melgar MD CHEMISTRY ORDERABLES Performing Organization Address City/State/[place] [address] documented in this encounter Visit Diagnoses Not on filedocumented in this encounter Care Teams Rn Allergy Relationship Specialty Start Date End Date Anna Mullen MD PCP - General 12/03/10 [address] [place] [address] documented as of this encounter
--- OUTSIDE RECORDS SUMMARY | 2022-04-04 00:46 | XMS_ITS | Encounter Summary ---
:1965 Author Organization [facility] [place] [address] Care Team Providers Name Role Phone Anna Mullen MD Primary Care Provider Encounter Details Date Type Department Care Team Description 07/29/2017 Multidisciplinary Care Solid Organ Otto Committee Transplant at [facility] [place] [address] Social History Tobacco Use Types [...] filedocumented in this encounter Care Teams Medical Csr Relationship Specialty Start Date End Date Anna Mullen MD PCP - General 12/03/10 [address] [place] [address] documented as of this encounter
--- OUTSIDE RECORDS SUMMARY | 2022-04-04 00:46 | XMS_ITS | Encounter Summary ---
:1965 Author Organization [facility] [place] [address] Care Team Providers Name Role Phone Anna Mullen MD Primary Care Provider Encounter Details Date Type Department Care Team Description 02/11/2017 Laboratory Appointment Lab [address] [place] Pancreas replaced by [facility] [place] [id number] Social History Tobacco Use Types Packs/Day Years [...] with reflex Culture (02/11/2017 8:21 AM EDT) [facility] Method Time Signature Glucose UA Negative Negative [facility] mg/dL [facility] Protein UA Negative Negative [facility] mg/dL [facility] Bilirubin UA Negative Negative [facility] mg/dL [facility] Comment: Clinical correlation required for positi ve Urine Bilirubin results as false positive may occur with some drugs and d rug related products. If a false positive is suspected a serum total bili sinha should be considered if clinically indicated. Urobilinogen UA Normal Normal mg/dL [facility] pH UA 7.0 5.0 - 8.0 [facility] Blood UA Negative Negative mg/dL [facility] Ketones UA Negative Negative mg/dL [facility] Nitrite UA Negative Negative [facility] Leukocytes UA Negative Negative [facility]ORY Appearance UA Clear Clear [facility] Spec [place] UA 1.006 1.002 - 1.030 [facility] Color UA Straw Yellow [facility] RBC UA Not Present 0 - 3 /HPF [facility] WBC UA Not Present 0 - 3 /HPF [facility] Culture Reflexed No [facility] Specimen (Source) Anatomical Collection Method Collection Time Re ceived Time Location / / Volume Laterality Urine specimen 02/11/2017 8:21 02/11/2017 8:28 obtained by clean AM EDT AM EDT catch procedure (specimen) Resulting Agency Comment Spec In Lab Eriberto Melgar MD URINE ORDERABLES Performing Organization Address City/State/ZIP Code Phon e Number [address] Protein/Creatinine Ratio, urine (02/11/2017 8:21 AM EDT) athologist Signature U Creatinine 42 mg/dL [facility] U Protein Ran <6 0 - 12 [facility] mg/dL [facility] Prot/Cre Ratio <0.1 ratio [facility] Specimen Anatomical Collection Method Collection Time Receive d Time (Source) Location / / Volume Laterality Urine specimen 02/11/2017 8:21 AM 017 8:29 (specimen) EDT AM EDT Resulting Agency Comment Spec In Lab Eriberto Melgar MD URINE ORDERABLES Performing Organization Address City/State/ZIP Code Phon e Number [address] Differential, Automated (02/11/2017 8:14 AM EDT) P athologist Signature Neutrophils % 40.3 % [facility] Neutr Abs (ANC) 2.37 1.70 - [facility] 6.10 [facility] x10(3)/[facility] LABORATORY Lymphocytes % 46.6 % [facility] Lymphocytes Abs 2.7 0.9 - 3.2 [facility] x10(3)/[facility] LABORATORY Monocytes % 9.2 % [facility] Monocyte Abs 0.5 0.3 - 0.9 [facility] x10(3)/[facility] LABORATORY Eosinophils % 2.7 % [facility] Eosinophils Abs 0.2 0.0 - 0.4 [facility] x10(3)/[facility] LABORATORY Basophils % 0.7 % [facility] Basophils Abs 0.0 0.0 - 0.1 [facility] x10(3)/[facility] LABORATORY Immature Gran % 0.50 % [...] Kym Gran Abs 0.03 0.00 - 0.04 x10(3)/[facility] MAR Y [facility] Specimen Anatomical Collection Method Collection Time Receive d Time (Source) Location / / Volume Laterality Blood specimen 02/11/2017 8:14 AM 017 8:25 (specimen) EDT AM EDT Resulting Agency Comment Spec In Lab Eriberto Melgar MD HEMATOLOGY ORDERABLES Performing Organization Address City/State/[place] [address] (ABNORMAL) Hemogram (02/11/2017 8:14 AM EDT) Analysis Performed At Patho logist Time Signature WBC 5.9 4.0 - 9.5 [facility] x10(3)/[facility] LABORATORY RBC 4.53 (L) 4.58 - [facility] 5.54 [facility] x10(6)/[facility] LABORATORY Hemoglobin 13.7 13.7 - [facility] 16.5 gm/dL [facility] Hematocrit 39.4 (L) 40.5 - [place] 48.5 % [facility] MCV 87.0 82.9 - [facility] 93.1 [facility] LABORATORY MCH 30.2 27.5 - [facility] 32.1 pg [facility] MCHC 34.8 32.0 - [facility] 35.7 gm/dL [facility] Platelets 242 145 - 357 [facility] x10(3)/[facility] LABORATORY RDWSD 38.9 36.0 - [facility] 45.0 [facility] LABORATORY RDWCV 12.3 11.4 - [facility] 13.8 % [facility] MPV 9.8 7.6 - 12.9 [facility] LABORATORY nRBC % Auto 0.0 % [facility] nRBC Abs Auto 0.000 0.000 - [facility] 0.000 [facility] x10(3)/[facility] LABORATORY Specimen Anatomical Collection Method Collection Time Receive d Time (Source) Location / / Volume Laterality Blood specimen 02/11/2017 8:14 AM 017 8:25 (specimen) EDT AM EDT Resulting Agency Comment Spec In Lab Eriberto Melgar MD HEMATOLOGY ORDERABLES Performing Organization Address City/State/ZIP Code Phon e Number [address] Gold Tube HOLD (02/11/2017 8:14 AM EDT) P athologist Signature Gold Hold Sample in [facility] lab. [facility] Specimen Anatomical Collection Method Collection Time Receive d Time (Source) Location / / Volume Laterality Blood specimen 02/11/2017 8:14 AM 017 8:25 (specimen) EDT AM EDT Eriberto Melgar MD CHEMISTRY ORDERABLES Performing Organization Address City/State/ZIP Code Phon e Number [address] Lavender Tube HOLD (02/11/2017 8:14 AM EDT) Patholo gist Method Time Signature Lavender Hold Sample in [facility]. [facility] Specimen Anatomical Collection Method Collection Time Receive d Time (Source) Location / / Volume Laterality Blood specimen 02/11/2017 8:14 AM 017 8:25 (specimen) EDT AM EDT Eriberto Melgar MD HEMATOLOGY ORDERABLES Performing Organization Address City/[facility]/[place] [address] Uric acid (02/11/2017 8:14 AM EDT) P athologist Signature Uric Acid 6.8 3.5 - 8.5 [facility] mg/dL [facility] Specimen Anatomical Collection Method Collection Time Receive d Time (Source) Location / / Volume Laterality Blood specimen 02/11/2017 8:14 AM 017 8:25 (specimen) EDT AM EDT Resulting Agency Comment Spec In Lab Eriberto Melgar MD CHEMISTRY ORDERABLES Performing Organization Address [facility] Phon e Number [address] Tacrolimus level (02/11/2017 8:14 AM EDT) P athologist Signature Tacrolimus Lvl 6.8 ng/mL [facility] Comment: Trough therapeutic: ??5-15 ng/mL Performed by ultra-performance liquid ch romatography tandem mass spectrometry (UPLCMS/MS). This test was developed and its performa nce characteristics determined by [facility]. It has not been [...] City/[facility]/ZIP Code Phon e Number [address] Reticulocyte Count (02/11/2017 8:14 AM EDT) P athologist Signature Retic Ct % 1.2 0.7 - 2.6 [facility] Retic Ct Abs 0.060 0.030 - [facility] 0.120 [facility] x10(6)/[facility] LABORATORY Immature Retic% 2.5 0.0 - 15.6 [facility] Reticulated Hgb 34.2 31.3 - [facility] 40.2 pg [facility] Specimen Anatomical Collection Method Collection Time Receive d Time (Source) Location / / Volume Laterality Blood specimen 02/11/2017 8:14 AM 017 8:25 (specimen) EDT AM EDT Resulting Agency Comment Spec In Lab Eriberto Melgar MD HEMATOLOGY ORDERABLES Performing Organization Address City/[facility]/ZIP Code Phon e Number [address] Phosphorus (02/11/2017 8:14 AM EDT) P athologist Signature Phosphorus 2.9 2.5 - 4.5 [facility] mg/dL [facility] Specimen Anatomical Collection Method Collection Time Receive d Time (Source) Location / / Volume Laterality Blood specimen 02/11/2017 8:14 AM 017 8:25 (specimen) EDT AM EDT Resulting Agency Comment Spec In Lab Eriberto Melgar MD CHEMISTRY ORDERABLES Performing Organization Address City/[facility]/ZIP Code Phon e Number [address] Magnesium (02/11/2017 8:14 AM EDT) P athologist Signature Magnesium 0.76 0.69 - 1.07 [facility] mmol/L [facility] Specimen Anatomical Collection Method Collection Time Receive d Time (Source) Location / / Volume Laterality Blood specimen 02/11/2017 8:14 AM 017 8:25 (specimen) EDT AM EDT Resulting Agency Comment Spec In Lab Eriberto Melgar MD CHEMISTRY ORDERABLES Performing Organization Address City/State/[place] [address] (ABNORMAL) Comprehensive metabolic panel (non-fasting) (02/11/2017 8:14 AM EDT) P athologist Signature Glucose Lvl 110 65 - 199 [facility] mg/dL [facility] Comment: Diabetes: >=200 mg/dL plus symp toms BUN 14 10 - 20 mg/dL [facility] Creatinine 1.08 0.80 - 1.50 mg/dL [facility] Comment: Please note that the pediatric reference intervals supplied above were not validated at [facility]. Results from pediatri c patients should be interpreted in conjunction to the patient's age, height and muscle mass. Sodium 132 (L) 135 - 145 mmol/L [facility] Potassium 4.8 3.5 - 5.0 mmol/L [facility] Comment: Please note: ??Patients with WBC >100,00 0 may have falsely elevated Potassium levels. ??For accurate Potassium quantif ication in these patients send serum separator tube (gold top) for subsequent determinations. ??Contact the Clinical Chemistry Laboratory if there are any qu estions. Chloride 95 (L) 98 - 107 mmol/L [facility] CO2 24 22 - 31 mmol/L [facility] Anion Gap 13 5 - 15 mmol/L [facility] Calcium 9.2 8.5 - 10.5 mg/dL [facility] Total Protein 7.4 6.1 - 8.0 gm/dL [facility] Albumin 4.6 3.2 - 5.2 gm/dL [facility] AST 24 0 - 39 unit/L [facility] ALT 24 0 - 55 unit/L [facility] Alk Phos 102 40 - 120 unit/L [facility] Total Bilirubin 1.3 0.2 - 1.3 mg/dL [facility] Bili, Direct 0.2 0.0 - 0.3 mg/dL [facility] Estimated GFR >60 >=[address] [place] [facility] Comment: This estimated GFR (eGFR) [...] the following links into your internet browser. http://[facility]/DHnkdep http://[facility]/DHMCnkf Specimen Anatomical Collection Method Collection Time Receive d Time (Source) Location / / Volume Laterality Blood specimen 02/11/2017 8:14 AM 017 8:25 (specimen) EDT AM EDT Resulting Agency Comment Spec In Lab Eriberto Melgar MD CHEMISTRY ORDERABLES Performing Organization Address City/State/[facility] [place] [address] Cholesterol, total (02/11/2017 8:14 AM EDT) [facility] gist Method Time Signature Chol, Total 138 <=239 [place] mg/dL [facility] Lipid See Note [place] Interpretation [facility] Comment: Lipid management should be guided by a p atient? s ASCVD risk, goals and preferences. ACC/AHA Guidelines recommend high intens ity statin if clinical ASCVD or LDL greater than or equal to 190 mg/dL. http://[facility]/ZSC-KAG-Jsdgcayxo Adults aged 40-75 with LDL 70-189 mg/dL should have their 10 year ASCVD risk estimated with the ACC/AHA ASCVD risk es timator http://tools.acc.org/LAVHU-Dbcs-Shzwubrh r/ Statin should be discussed if risk [...] City/[facility]/[place] [address] Lipase (02/11/2017 8:14 AM EDT) P athologist Signature Lipase 20 0 - 60 [facility] LABORATORY Specimen Anatomical Collection Method Collection Time Receive d Time (Source) Location / / Volume Laterality Blood specimen 02/11/2017 8:14 AM 017 8:25 (specimen) EDT AM EDT Resulting Agency Comment Spec In Lab Eriberto Melgar MD CHEMISTRY ORDERABLES Performing Organization Address City/[facility]/[place] [address] Amylase (02/11/2017 8:14 AM EDT) P athologist Signature Amylase 60 28 - 100 [facility]OR[facility]ORY Specimen Anatomical Collection Method Collection Time Receive d Time (Source) Location / / Volume Laterality Blood specimen 02/11/2017 8:14 AM 017 8:25 (specimen) EDT AM EDT Resulting Agency Comment Spec In Lab Eriberto Melgar MD CHEMISTRY ORDERABLES Performing Organization Address City/[facility]/ZIP [facility] [place] [address] documented in this encounter Visit Diagnoses Diagnosis 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
--- OUTSIDE RECORDS SUMMARY | 2022-04-04 00:46 | XMS_ITS | Encounter Summary ---
:1965 Author Organization [facility] [place] [address] Care Team Providers Name Role Phone Anna Mullen MD Primary Care Provider Encounter Details Date Type Department Care Team Description 07/26/2017 Hospital Encounter [place] [address] Social History Tobacco Use Types Packs/Day [...] Organization Address City/State/ZIP Code Phon e Number [facility] JANE [place], [place] documented in this encounter Visit Diagnoses Not on filedocumented in this encounter Care Teams Residential Support Worker Relationship Specialty Start Date End Date Anna Mullen MD PCP - General 12/03/10 [address] [place] [address] documented as of this encounter
--- OUTSIDE RECORDS SUMMARY | 2022-04-04 00:46 | XMS_ITS | Encounter Summary ---
:1965 Author Organization [facility] [address] Care Team Providers Name Role Phone Anna Mullen MD Primary Care Provider Encounter Details Date Type Department Care Team Description 07/27/2017 Hospital Encounter [place] [address] Social History Tobacco Use Types Packs/Day [...] Organization Address City/State/ZIP Code Phon e Number [facility] [place], [place] documented in this encounter Visit Diagnoses Not on filedocumented in this encounter Care Teams L Tacker Relationship Specialty Start Date End Date Anna Mullen MD PCP - General 12/03/10 [address] [place] [address] documented as of this encounter
--- OUTSIDE RECORDS SUMMARY | 2022-04-04 00:46 | XMS_ITS | Encounter Summary ---
:1965 Author Organization [facility] [place] [address] Care Team Providers Name Role Phone Anna Mullen MD Primary Care Provider Reason for Visit Reason Comments Medication Refill Encounter Details Date Type Department Care Team Description 11/27/2016 Refill [facility] [place] [address] [place] [address] [phone] (Wo rk) Social History Tobacco Use Types [...] on filedocumented in this encounter Care Teams Fluid Pump Operator Relationship Specialty Start Date End Date Anna Mullen MD PCP - General 12/03/10 [address] [place] [address] documented as of this encounter
--- OUTSIDE RECORDS SUMMARY | 2022-04-04 00:46 | XMS_ITS | Encounter Summary ---
:1965 Author Organization [facility] Address [place] [address] Care Team Providers Name Role Phone Anna Mullen MD Primary Care Provider Encounter Details Date Type Department Care Team Description 07/29/2017 Hospital Encounter [place] [address] Social History Tobacco Use Types Packs/Day [...] Organization Address City/State/ZIP Code Phon e Number [facility] [place], [place] documented in this encounter Visit Diagnoses Not on filedocumented in this encounter Care Teams Straight Slicing Machine Operator Relationship Specialty Start Date End Date Anna Mullen MD PCP - General 12/03/10 [address] [place] [address] documented as of this encounter
--- OUTSIDE RECORDS SUMMARY | 2022-04-04 00:46 | XMS_ITS | Encounter Summary ---
:1965 Author Organization [facility] [place] [address] Care Team Providers Name Role Phone Anna Mullen MD Primary Care Provider Reason for Visit Auth/Cert Specialty Diagnoses / Procedures Referred By Contact Refer red To Contact Diagnoses Fever FEVERS Procedures AGUILAR IPI Referral ID Status Reason Start Date Expiration Date Visits Requ ested Visits Authorized [id number] 1 1 Encounter Details Date Type Department Care Team Description 07/31/2017 - Hospital Encounter 4 [facility] Bruce Webb III, [place] [address] 08/03/2017 [facility] [place]ama [place] [address] [facility] Pascual [place] [address] [place] [id number] Social History Tobacco Use Types Packs/Day Years [...] Richard Hsu Patient Age: 51 y.o. Language: Peruvian Race: White Ethnicity: Not nor Admit date: [...] please contact your inpatient physician through the [facility] [place] Cardi[place] . Issues after hours and on weekends [...] Pt was vacationing a month ago in [place] then returned to [place]. Two days after returning home he developed [...] He subsequentlyhe presented to the ED at [facility] where rectal temperature was 102.9.and he [...] a month prior topresentation. ? Course at [facility]: Temperature was 38.9 degrees on presentation,with [...] neg ?? Borrelia garinii/afzelli: neg ?? Adenovirus COURT LIAISON negative ?? EBV COURT LIAISON negative Pending Studies and Lab Data: Fungus cx COURT LIAISON (at [facility]) Discharge Conditions/Prognosis: Upon discharge the patient [...] AM LAB, THREE L Lab 3L [facility] 08/07/2017 11:00 AM Eriberto Melgar MD Leb Trans 2M [facility] 08/07/2017 1:00 PM DOBUTAMINE STRESS [facility] PCP Hanh Marroquin 08/12/17 at 9:15 AM Your Inpatient Doctor: Bruce Moreno I* Your Primary Care Provider: Anna Mullen MD [phone] For questions regarding this document or issues relating to this hospitalization on the Medical Service, please contact your inpatient physician through the [facility] Cardiovascular [place] . Issues after hours and on weekends will be handled by the Hospitalist staff on-call. General Instructions None Future Appointments and Orders Future Appointments Provider Department Dept Phone 08/07/2017 10:00 AM LAB, THREE L Lab [address] [place] [address] 08/07/2017 11:00 AM Eriberto Melgar MD Transplant at [place] [phone] 08/07/2017 1:00 PM DOBUTAMINE STRESS Non-Invasive Cardiology Lab [facility] [phone] Do not eat or drink anything for [...] 08/07/2017 10:00 AM LAB, THREE L Lab [address] [place] [address] 08/07/2017 11:00 AM Eriberto Melgar MD Leb Trans 2M [facility] 08/07/2017 1:00 PM DOBUTAMINE STRESS KAILYN Fay [facility] PCP Hanh Marroquin 08/12/17 at 9:15 AM Your Inpatient Doctor: Bruce Moreno I* Your Primary Care Provider: Anna Mullen MD [phone] For questions regarding this document or issues relating to this hospitalization on the Medical Service, please contact your inpatient physician through the [facility] Cardiovascular [place] . Issues after hours and on weekends [...] spent <30 minutes (Day of Discharge Code 51312) involved in the final examination of the [...] ASCVD, migraine who presented in transfer from [facility] for further workup of headache, dry cough, [...] 168 hours. No results for input(s): PHART, UIR9LQL, PO2ART, ZKB4EMJ in the last 168 hours. CD4/CD8 pending [...] ASCVD, migraine who presented in transfer from [facility] for further workup of headache, dry cough, [...] ASCVD, migraine who presented in transfer from [facility] for further workup of headache, dry cough, [...] 168 hours. No results for input(s): PHART, QGS7MJZ, PO2ART, RZT8LEC in the last 168 hours. CD4/CD8 pending [...] ASCVD, migraine who presented in transfer from [facility] for further workup of headache, dry cough, [...] Moreau MD - 07/31/2017 5:17 PM EST [facility] Department of Internal Medicine Inpatient History and Physical Note Patient info: Richard Hsu 1965 [id number] Anna Mullen MD Date of Admission: 07/31/2017 ( Hospital Day 0 days ) Attending: Dr. Mccrary Service: Medicine Chief Complaint: No chief complaint on file. Patient ID: Richard Hsu is a 51 y.o. male with a history of chronic back pain and DM1 s/p DDPT 08/27/13, HTN, depression, hyperthyroidism, ASCVD, migraine who presented in transfer from [facility] for further workup of headache, dry cough, rash and fever of unknown origin. History of Present Illness: Pt was facationing a month ago in [place] then returned to [place]. Two days after returning home he developed [...] He subsequentlyhe presented to the ED at [facility] where rectal temperature was 102.9.and he [...] approximately a month prior topresentation. Course at [facility]: Temperature was 38.9 degrees on presentation,with [...] [facility] ??? SHOULDER SURGERY ??? UPPER GI ENDOSCOPY, EXAM 12/31/2011 UPPER GI ENDOSCOPY performed by CLAYTON BHAKTA at 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 Pt with approximately 1 month hx headache a/w fever, chills a/w unilateral decreased hearing. Stable sx for 2 weeks, which then progressed to severe occipital headache a/w fever and maculopapular rash (more prominent with fever, improved with defervescence). Admitted to [facility] - underwent extensive investigation including CT head/chest/abd/pelvis, CSF eval neg, extensive microbiological workup sent all negative thus far (pending workup to be followed up by PCP). Txf to [facility] [place] further workup - [...] Specific Information: None Health/Prescription Coverage: Primary Insurance: [employer] [place] Secondary Insurance: N/A Prescription Coverage: See above Preferred Pharmacy: [id number] - [address] Other: N/A Primary Care Provider: Anna Mullen MD [phone] Patient/Caregiver Goals of Treatment: Patient plans to [...] of care planning. Lisa Jackson RN Pager: [phone] Plan of Care - Polina Rich RN - 08/03/2017 2:35 AM EST Problem: Patient Care Overview Goal: Plan of Care Review Outcome: Ongoing (Interventions Implemented as Appropriate) 08/02/17 0746 08/02/17 2513 Plan of Care Review Progress improving -- [...] plan. IV mg+ replaced this shift. Pt marry carb control diet in full portions w/o [...] dry, diffuse erythematous papules on trunk. 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 strength +5 [...] neg BK virus and Adenovirus pending at [facility] Component Value Date/Time SPGRAVITYUA 1.011 07/31/20172054 PHUADIP [...] Further workup pending clinical course Tato Méndez, [facility] III Internal Medicine Extrusion Die Coordinator Page: [phone] 08/01/17 7:23 AM documented in this encounter [...] P athologist Signature Neutrophils % 42.7 % [facility] LABORATORY Neutr Abs (ANC) 2.81 1.70 - [facility] 6.10 [facility] x10(3)/[facility] LABORATORY Lymphocytes % 38.2 % [facility] LABORATORY Lymphocytes Abs 2.5 0.9 - 3.2 [facility] x10(3)/[facility] LABORATORY Monocytes % 13.7 % [facility] LABORATORY Monocyte Abs 0.9 0.3 - 0.9 [facility] x10(3)/[facility] LABORATORY Eosinophils % 3.8 % [facility] LABORATORY Eosinophils Abs 0.2 0.0 - 0.4 [facility] x10(3)/[facility] LABORATORY Basophils % 0.8 % [facility] LABORATORY Basophils Abs 0.0 0.0 - 0.1 [facility] x10(3)/[facility] LABORATORY Immature Gran % 0.80 % [facility] LABORATORY Comment: Immature granulocytes(IG's)percentage an d absolute count will include metamyelocytes, myelocytes, and promyelo cytes. Blood smears from CBCs yielding IG's will be scanned manually for concor dance. If this scan disagrees with the automated IG or if promyelocytes are not ed, a manual differential will be performed. Kym Gran Abs 0.05 (H) 0.00 - 0.04 x10(3)/[facility] LABORATORY Specimen Anatomical Collection Method Collection Time Receive d Time (Source) Location / / Volume Laterality Blood specimen 08/03/2017 4:16 AM 017 4:36 (specimen) EST AM EST Resulting Agency Comment Spec In Lab Rama Mccrary MD HEMATOLOGY ORDERABLES Performing Organization Address City/State/ZIP Code Phon e Number [place] [phone] (ABNORMAL) Hemogram (08/03/2017 4:16 AM EST) Analysis Performed At Patho logist Time Signature WBC 6.6 4.0 - 9.5 [facility] x10(3)/[facility] LABORATORY RBC 4.38 (L) 4.58 - [facility] 5.54 [facility] x10(6)/[facility] LABORATORY Hemoglobin 12.6 (L) 13.7 - [facility] 16.5 gm/dL [facility] LABORATORY Hematocrit 37.6 (L) 40.5 - [facility] 48.5 % [facility] MCV 85.8 82.9 - [facility] 93.1 fL [facility] MCH 28.8 27.5 - [facility] 32.1 pg [facility] MCHC 33.5 32.0 - [facility] 35.7 gm/dL [facility] Platelets 257 145 - 357 [facility] x10(3)/[facility] LABORATORY RDWSD 39.3 36.0 - [place] 45.0 [facility] LABORATORY RDWCV 12.7 11.4 - [place] 13.8 % [facility] LABORATORY MPV 10.1 7.6 - 12.9 [place] [facility] LABORATORY nRBC % Auto 0.0 % [facility] LABORATORY nRBC Abs Auto 0.000 0.000 - [place] [facility] 0.000 [facility] x10(3)/[facility] LABORATORY Specimen Anatomical Collection Method Collection Time Receive d Time (Source) Location / / Volume Laterality Blood specimen 08/03/2017 4:16 AM 017 4:36 (specimen) EST AM EST Resulting Agency Comment Spec In Lab Rama Mccrary MD HEMATOLOGY ORDERABLES Performing Organization Address City/[facility]/ZIP [facility] Phon e Number [address] Lipase (08/03/2017 4:16 AM EST) P athologist Signature Lipase 29 0 - 60 [facility] LABORATORY Specimen Anatomical Collection Method Collection Time Receive d Time (Source) Location / / Volume Laterality Blood specimen 08/03/2017 4:16 AM 017 4:36 (specimen) EST AM EST Resulting Agency Comment Spec In Lab Rama Mccrary MD CHEMISTRY ORDERABLES Performing Organization Address City/[facility] [place] [address] (ABNORMAL) Hepatic Function Panel (08/03/2017 4:16 AM EST) P athologist Signature Total Protein 6.8 6.1 - 8.0 [facility] [place] gm/dL [facility] Albumin 3.6 3.2 - 5.2 [facility] [place] gm/dL [facility] AST 47 (H) 0 - 39 [facility] [place] unit/L [facility] ALT 57 (H) 0 - 55 [facility] [place] unit/L [facility] Alk Phos 140 (H) 40 - 120 [facility]L [facility] Total 0.7 0.2 - 1.3 [facility] Bilirubin mg/dL [facility] Bili, Direct 0.1 0.0 - 0.3 [facility] mg/dL [facility] Specimen Anatomical Collection Method Collection Time Receive d Time (Source) Location / / Volume Laterality Blood specimen 08/03/2017 4:16 AM 017 4:36 (specimen) EST AM EST Resulting Agency Comment Spec In Lab Rama Mccrary MD CHEMISTRY ORDERABLES Performing Organization Address City/[facility]/ZIP Code Phon e Number [address] Magnesium (08/03/2017 4:16 AM EST) P athologist Signature Magnesium 0.85 0.69 - 1.07 [facility] mmol/L [facility] LABORATORY Specimen Anatomical Collection Method Collection Time Receive d Time (Source) Location / / Volume Laterality Blood specimen 08/03/2017 4:16 AM 017 4:36 (specimen) EST AM EST Resulting Agency Comment Spec In Lab Rama Mccrary MD CHEMISTRY ORDERABLES Performing Organization Address City/[facility]/[place] [address] (ABNORMAL) Basic Metabolic Panel (non-fasting) (08/03/2017 4:16 AM EST) athologist Signature Glucose Lvl 107 65 - 199 [facility] mg/dL [facility]OR[facility] Comment: Diabetes: >=200 mg/dL plus symp toms BUN 14 10 - 20 mg/dL [facility] LABORATORY Creatinine 1.04 0.80 - 1.50 mg/dL [facility] LABORATORY Sodium 136 135 - 145 mmol/L [facility] [...] estions. Chloride 98 98 - 107 mmol/L [facility] LABORATORY CO2 22 22 - 31 mmol/L [facility] LABORATORY Anion Gap 16 (H) 5 - 15 mmol/L [facility] LABORATORY Calcium 8.9 8.5 - 10.5 mg/dL [facility] LABORATORY Estimated GFR >60 >=60 [facility] LABORATORY Comment: The reported eGFR should be multiplied b y 1.2 for patients. The MDRD is not an appropriate measure o f renal function for patients with body mass extremes or in patients with acute kidney failure. http://[employer]/DHnkdep http://[employer]/DHMCnkf Specimen Anatomical Collection Method Collection Time Receive d Time (Source) Location / / Volume Laterality Blood specimen 08/03/2017 4:16 AM 017 4:36 (specimen) EST AM EST Resulting Agency Comment Spec In Lab Rama Mccrary MD CHEMISTRY ORDERABLES Performing Organization Address City/[facility] Phon e Number [address] POCT Glucose (08/02/2017 7:38 AM EST) athologist Signature POC Glucose 102 65 - 199 [facility] mg/dL [facility] Comment: Supplemental ranges: <140 mg/dL before meals <180 mg/dL all other times of the day Specimen Anatomical Collection Method Collection Time Receive d Time (Source) Location / / Volume Laterality Blood specimen 08/02/2017 7:38 AM 017 7:38 (specimen) EST AM EST Pascual Khalil MD POINT OF CARE TEST ORDERABLE S Performing Organization Address City/[facility]/ZIP Code Phon e Number [address] POCT Glucose (08/02/2017 5:20 AM EST) athologist Signature POC Glucose 108 65 - 199 [facility] mg/dL [facility] Comment: Supplemental ranges: <140 mg/dL before meals <180 mg/dL all other times of the day Specimen Anatomical Collection Method Collection Time Receive d Time (Source) Location / / Volume Laterality Blood specimen 08/02/2017 5:20 AM 017 5:20 (specimen) EST AM EST Pascual Khalil MD POINT OF CARE TEST ORDERABLE S Performing Organization Address City/State/ZIP Code Phon e Number [address] Scan, Peripheral Blood (08/02/2017 4:45 AM EST) Patholo gist Method Time Signature Plat Estimate Normal [facility] LABORATORY RBC Morphology Abnormal [facility] Ovalocytes 1-5 /HPF [facility] LABORATORY Specimen Anatomical Collection Method Collection Time Receive d Time (Source) Location / / Volume Laterality Blood specimen 08/02/2017 4:45 AM 017 5:02 (specimen) EST AM EST Resulting Agency Comment Spec In Lab Rama Mccrary MD HEMATOLOGY ORDERABLES Performing Organization Address City/State/ZIP Code Phon e Number [address] Differential, Automated (08/02/2017 4:45 AM EST) P athologist Signature Neutrophils % 47.6 % [facility] LABORATORY Neutr Abs (ANC) 2.52 1.70 - [facility] 6.10 [facility] x10(3)/[facility] LABORATORY Lymphocytes % 34.0 % [facility] LABORATORY Lymphocytes Abs 1.8 0.9 - 3.2 [facility] x10(3)/[facility] LABORATORY Monocytes % 12.9 % [facility] LABORATORY Monocyte Abs 0.7 0.3 - 0.9 [facility] x10(3)/[facility] LABORATORY Eosinophils % 4.3 % [facility] LABORATORY Eosinophils Abs 0.2 0.0 - 0.4 [facility] x10(3)/[facility] LABORATORY Basophils % 0.6 % [facility] LABORATORY Basophils Abs 0.0 0.0 - 0.1 [facility] x10(3)/[facility] LABORATORY Immature Gran % 0.60 % [facility] LABORATORY Comment: Immature granulocytes(IG's)percentage an d absolute count will include metamyelocytes, myelocytes, and promyelo cytes. Blood smears from CBCs yielding IG's will be scanned manually for concor dance. If this scan disagrees with the automated IG or if promyelocytes are not ed, a manual differential will be performed. Kym Gran Abs 0.03 0.00 - 0.04 x10(3)/[facility] LABORATORY Specimen Anatomical Collection Method Collection Time Receive d Time (Source) Location / / Volume Laterality Blood specimen 08/02/2017 4:45 AM 017 5:02 (specimen) EST AM EST Resulting Agency Comment Spec In Lab Rama Mccrary MD HEMATOLOGY ORDERABLES Performing Organization Address City/State/[place] [address] (ABNORMAL) Hemogram (08/02/2017 4:45 AM EST) Analysis Performed At Patho logist Time Signature WBC 5.3 4.0 - 9.5 [facility] x10(3)/[facility] LABORATORY RBC 4.12 (L) 4.58 - [facility] 5.54 [facility] x10(6)/[facility] LABORATORY Hemoglobin 12.2 (L) 13.7 - [facility] 16.5 gm/dL [facility] Hematocrit 35.0 (L) 40.5 - [facility] 48.5 % [facility] MCV 85.0 82.9 - [facility] 93.1 [facility] LABORATORY MCH 29.6 27.5 - [facility] 32.1 pg [facility] MCHC 34.9 32.0 - [facility] 35.7 gm/dL [facility]OR[facility] Platelets 228 145 - 357 [facility] x10(3)/[facility] LABORATORY RDWSD 39.8 36.0 - [facility] 45.0 [facility] LABORATORY RDWCV 13.0 11.4 - [facility] 13.8 % [facility] LABORATORY MPV 10.3 7.6 - 12.9 [facility] LABORATORY nRBC % Auto 0.0 % [facility] LABORATORY nRBC Abs Auto 0.000 0.000 - [facility] 0.000 [facility] x10(3)/[facility] LABORATORY Specimen Anatomical Collection Method Collection Time Receive d Time (Source) Location / / Volume Laterality Blood specimen 08/02/2017 4:45 AM 017 5:02 (specimen) EST AM EST Resulting Agency Comment Spec In Lab Rama Mccrary MD HEMATOLOGY ORDERABLES Performing Organization Address City/[facility] Phon e Number [address] Lipase (08/02/2017 4:45 AM EST) athologist Signature Lipase 29 0 - 60 [facility] [place] unit/L [facility] LABORATORY Specimen Anatomical Collection Method Collection Time Receive d Time (Source) Location / / Volume Laterality Blood specimen 08/02/2017 4:45 AM 017 5:02 (specimen) EST AM EST Resulting Agency Comment Spec In Lab Rama Mccrary MD CHEMISTRY ORDERABLES Performing Organization Address City/[facility] [place] [address] (ABNORMAL) Hepatic Function Panel (08/02/2017 4:45 AM EST) P athologist Signature Total Protein 6.7 6.1 - 8.0 [place] [place] gm/dL [facility] LABORATORY Albumin 3.6 3.2 - 5.2 [place] gm/dL [facility] LABOR[facility] AST 44 (H) 0 - 39 [facility] [place] unit/L [facility] LABOR[facility] ALT 57 (H) 0 - 55 [place] unit/L [facility] LABOR[facility] Alk Phos 135 (H) 40 - 120 [facility] [place] unit/L [facility] Total 0.6 0.2 - 1.3 [place] Bilirubin mg/dL [facility]OR[facility] Bili, Direct 0.1 0.0 - 0.3 [place] [place] mg/dL [facility] LABOR[facility] Specimen Anatomical Collection Method Collection Time Receive d Time (Source) Location / / Volume Laterality Blood specimen 08/02/2017 4:45 AM 017 5:02 (specimen) EST AM EST Resulting Agency Comment Spec In Lab Rama Mccrary MD CHEMISTRY ORDERABLES Performing Organization Address City/State/[place] [address] [facility] [address] Magnesium (08/02/2017 4:45 AM EST) athologist Signature Magnesium 0.74 0.69 - 1.07 [facility] mmol/L [facility] LABORATORY Specimen Anatomical Collection Method Collection Time Receive d Time (Source) Location / / Volume Laterality Blood specimen 08/02/2017 4:45 AM 017 5:02 (specimen) EST AM EST Resulting Agency Comment Spec In Lab Rama Mccrary MD CHEMISTRY ORDERABLES Performing Organization Address City/State/ZIP Code Phon e Number [address] Basic Metabolic Panel (non-fasting) (08/02/2017 4:45 AM EST) athologist Signature Glucose Lvl 106 65 - 199 [facility] mg/dL [facility] Comment: Diabetes: >=200 mg/dL plus symp toms BUN 12 10 - 20 mg/dL [facility] LABORATORY Creatinine 0.92 0.80 - 1.50 mg/dL [facility] LABOR[facility]ORY Sodium 135 135 - 145 mmol/L [facility] [...] estions. Chloride 98 98 - 107 mmol/L [facility] LABORATORY CO2 22 22 - 31 mmol/L [facility] LABORATORY Anion Gap 15 5 - 15 mmol/L [facility] LABORATORY Calcium 8.9 8.5 - 10.5 mg/dL [facility] LABOR[facility]ORY Estimated GFR >60 >=60 [facility] LABOR[facility]ORY Comment: The reported eGFR should be multiplied b y 1.2 for patients. The MDRD is not an appropriate measure o f renal function for patients with body mass extremes or in patients with acute kidney failure. http://[employer]/DHnkdep http://[employer]/DHMCnkf Specimen Anatomical Collection Method Collection Time Receive d Time (Source) Location / / Volume Laterality Blood specimen 08/02/2017 4:45 AM 017 5:02 (specimen) EST AM EST Resulting Agency Comment Spec In Lab Rama Mccrary MD CHEMISTRY ORDERABLES Performing Organization Address City/State/ZIP Code Phon e Number [address] POCT Glucose (08/01/2017 11:53 PM EST) athologist Signature POC Glucose 115 65 - 199 TIFFANI RAMONA mg/dL [facility] Comment: Supplemental ranges: <140 mg/dL before meals <180 mg/dL all other times of the day Specimen Anatomical Collection Method Collection Time Receive d Time (Source) Location / / Volume Laterality Blood specimen 08/01/2017 11:53 7 (specimen) PM EST 11:53 PM EST Pascual Khalil MD POINT OF CARE TEST ORDERABLE S Performing Organization Address City/[facility]/[place] [address] POCT Glucose (08/01/2017 8:12 PM EST) athologist Signature POC Glucose 118 65 - 199 TIFFANI RAMONA mg/dL [facility] Comment: Supplemental ranges: <140 mg/dL before meals <180 mg/dL all other times of the day Specimen Anatomical Collection Method Collection Time Receive d Time (Source) Location / / Volume Laterality Blood specimen 08/01/2017 8:12 PM 017 8:12 (specimen) EST PM EST Pascual Khalil MD POINT OF CARE TEST ORDERABLE S Performing Organization Address City/[facility]/ZIP Code Phon e Number [address] POCT Glucose (08/01/2017 4:09 PM EST) athologist Signature POC Glucose 120 65 - 199 TIFFANI RAMONA mg/dL [facility] Comment: Supplemental ranges: <140 mg/dL before meals <180 mg/dL all other times of the day Specimen Anatomical Collection Method Collection Time Receive d Time (Source) Location / / Volume Laterality Blood specimen 08/01/2017 4:09 PM 017 4:09 (specimen) EST PM EST Pascual Khalil MD POINT OF CARE TEST ORDERABLE S Performing Organization Address City/State/ZIP Code Phon e Number [address] POCT Glucose (08/01/2017 11:32 AM EST) athologist Signature POC Glucose 100 65 - 199 [facility] Comment: Supplemental ranges: <140 mg/dL before meals <180 mg/dL all other times of the day Specimen Anatomical Collection Method Collection Time Receive d Time (Source) Location / / Volume Laterality Blood specimen 08/01/2017 11:32 7 (specimen) AM EST 11:32 AM EST Pascual Khalil MD POINT OF CARE TEST ORDERABLE S Performing Organization Address City/State/ZIP Code Phon e Number [address] POCT Glucose (08/01/2017 7:57 AM EST) athologist Signature POC Glucose 98 65 - 199 [facility] Comment: Supplemental ranges: <140 mg/dL before meals <180 mg/dL all other times of the day Specimen Anatomical Collection Method Collection Time Receive d Time (Source) Location / / Volume Laterality Blood specimen 08/01/2017 7:57 AM 017 7:57 (specimen) EST AM EST Rama Mccrary MD POINT OF CARE TEST ORDERABLE S Performing Organization Address City/State/ZIP Code Phon e Number [address] Differential, Automated (08/01/2017 4:20 AM EST) athologist Signature Neutrophils % 47.2 % [facility] Neutr Abs (ANC) 2.05 1.70 - [facility] 6.10 [facility] x10(3)/[facility] LABORATORY Lymphocytes % 32.5 % [facility] Lymphocytes Abs 1.4 0.9 - 3.2 [facility] x10(3)/[facility] LABORATORY Monocytes % 13.6 % [facility] Monocyte Abs 0.6 0.3 - 0.9 [facility] x10(3)/[facility] LABORATORY Eosinophils % 5.3 % [facility] Eosinophils Abs 0.2 0.0 - 0.4 [facility] x10(3)/[facility] LABORATORY Basophils % 0.7 % [facility] Basophils Abs 0.0 0.0 - 0.1 [place] [id number](3)/[facility] LABORATORY Immature Gran % 0.70 % [facility] Comment: Immature granulocytes(IG's)percentage an d absolute count will include metamyelocytes, myelocytes, and promyelo cytes. Blood smears from CBCs yielding IG's will be scanned manually for concor dance. If this scan disagrees with the automated IG or if promyelocytes are not ed, a manual differential will be performed. Kym Gran Abs 0.03 0.00 - 0.04 x10(3)/[facility]ORY Specimen Anatomical Collection Method Collection Time Receive d Time (Source) Location / / Volume Laterality Blood specimen 08/01/2017 4:20 AM 017 4:51 (specimen) EST AM EST Resulting Agency Comment Spec In Lab Rama Mccrary MD HEMATOLOGY ORDERABLES Performing Organization Address City/State/[place] [address] (ABNORMAL) Hemogram (08/01/2017 4:20 AM EST) Analysis Performed At Patho logist Time Signature WBC 4.3 4.0 - 9.5 [facility] x10(3)/[facility] LABORATORY RBC 4.03 (L) 4.58 - [facility] 5.54 [facility] x10(6)/[facility] LABORATORY Hemoglobin 11.7 (L) 13.7 - [facility] 16.5 gm/dL [facility] Hematocrit 34.4 (L) 40.5 - [facility] 48.5 % [facility] MCV 85.4 82.9 - TIFFANI DEANRAMONA 93.1 [facility] LABORATORY MCH 29.0 27.5 - TIFFANI DEANRAMONA 32.1 pg [facility] MCHC 34.0 32.0 - [facility] 35.7 gm/dL [facility] Platelets 189 145 - 357 [facility] x10(3)/[facility] LABORATORY RDWSD 38.9 36.0 - TIFFANI DEANRAMONA 45.0 [facility] LABORATORY RDWCV 12.6 11.4 - [facility] 13.8 % [facility] MPV 10.4 7.6 - 12.9 TIFFANI RAMONA [facility] LABORATORY nRBC % Auto 0.0 % [facility] nRBC Abs Auto 0.000 0.000 - [place] [facility] 0.000 [facility] x10(3)/[facility] LABORATORY Specimen Anatomical Collection Method Collection Time Receive d Time (Source) Location / / Volume Laterality Blood specimen 08/01/2017 4:20 AM 017 4:51 (specimen) EST AM EST Resulting Agency Comment Spec In Lab Rama Mccrary MD HEMATOLOGY ORDERABLES Performing Organization Address City/State/[place] [address] Lipase (08/01/2017 4:20 AM EST) P athologist Signature Lipase 29 0 - 60 [facility]L [facility] Specimen Anatomical Collection Method Collection Time Receive d Time (Source) Location / / Volume Laterality Blood specimen 08/01/2017 4:20 AM 017 4:51 (specimen) EST AM EST Resulting Agency Comment Spec In Lab Rama Mccrary MD CHEMISTRY ORDERABLES Performing Organization Address City/[facility] [place] [address] (ABNORMAL) Hepatic Function Panel (08/01/2017 4:20 AM EST) P athologist Signature Total Protein 6.3 6.1 - 8.0 [facility] Albumin 3.3 3.2 - 5.2 TIFFANI GREENE gm/dL [facility] AST 42 (H) 0 - 39 [facility] ALT 52 0 - 55 [facility]L [facility] Alk Phos 131 (H) 40 - 120 [facility]L [facility] Total 0.5 0.2 - 1.3 [facility] Bilirubin mg/dL [facility] Bili, Direct 0.1 0.0 - 0.3 [facility] Specimen Anatomical Collection Method Collection Time Receive d Time (Source) Location / / Volume Laterality Blood specimen 08/01/2017 4:20 AM 017 4:51 (specimen) EST AM EST Resulting Agency Comment Spec In Lab Rama Mccrary MD CHEMISTRY ORDERABLES Performing Organization Address City/[facility]/ZIP Code Phon e Number [address] (ABNORMAL) Magnesium (08/01/2017 4:20 AM EST) P athologist Signature Magnesium 0.66 (L) 0.69 - 1.07 [facility] mmol/L [facility] Specimen Anatomical Collection Method Collection Time Receive d Time (Source) Location / / Volume Laterality Blood specimen 08/01/2017 4:20 AM 017 4:51 (specimen) EST AM EST Resulting Agency Comment Spec In Lab Rama Mccrary MD CHEMISTRY ORDERABLES Performing Organization Address City/[facility]/[place] [address] Basic Metabolic Panel (non-fasting) (08/01/2017 4:20 AM EST) P athologist Signature Glucose Lvl 105 65 - 199 [facility] mg/dL [facility] Comment: Diabetes: >=200 mg/dL plus symp toms BUN 10 10 - 20 mg/dL [facility] Creatinine 0.92 0.80 - 1.50 mg/dL [facility] Sodium 138 135 - 145 mmol/L [facility] [...] estions. Chloride 100 98 - 107 mmol/L [facility] CO2 26 22 - 31 mmol/L [facility] Anion Gap 12 5 - 15 mmol/L [facility] Calcium 8.7 8.5 - 10.5 mg/dL [facility] Estimated GFR >60 >=60 [facility] Comment: The reported eGFR should be multiplied b y 1.2 for patients. The MDRD is not an appropriate measure o f renal function for patients with body mass extremes or in patients with acute kidney failure. http://[employer]/DHnkdep http://[employer]/DHMCnkf Specimen Anatomical Collection Method Collection Time Receive d Time (Source) Location / / Volume Laterality Blood specimen 08/01/2017 4:20 AM 017 4:51 (specimen) EST AM EST Resulting Agency Comment Spec In Lab Rama Mccrary MD CHEMISTRY ORDERABLES Performing Organization Address City/State/[place] [address] Scan, Peripheral Blood (07/31/2017 9:47 PM EST) [facility] gist Method Time Signature Plat Estimate Normal [facility] RBC Morphology Abnormal [facility] Ovalocytes 1-5 /HPF [facility] Jeremy Cells 1-5 /HPF [facility] Giant Less than 1 /HPF [facility] LABORATORY Specimen Anatomical Collection Method Collection Time Receive d Time (Source) Location / / Volume Laterality Blood specimen 07/31/2017 9:47 PM 017 9:51 (specimen) EST PM EST Resulting Agency Comment Spec In Lab Rama Mccrary MD HEMATOLOGY ORDERABLES Performing Organization Address City/State/ZIP Code Phon e Number [place] [id number] [address] Differential, Automated (07/31/2017 9:47 PM EST) P athologist Signature Neutrophils % 49.1 % [facility] Neutr Abs (ANC) 2.83 1.70 - [facility] 6.10 [facility] x10(3)/[facility] LABORATORY Lymphocytes % 34.5 % [facility] Lymphocytes Abs 2.0 0.9 - 3.2 [facility] x10(3)/[facility] LABORATORY Monocytes % 12.5 % [facility] Monocyte Abs 0.7 0.3 - 0.9 [facility] x10(3)/[facility] LABORATORY Eosinophils % 3.1 % [facility] Eosinophils Abs 0.2 0.0 - 0.4 [facility] x10(3)/[facility] LABORATORY Basophils % 0.5 % [facility] Basophils Abs 0.0 0.0 - 0.1 [facility] x10(3)/[facility] LABORATORY Immature Gran % 0.30 % [facility] Comment: Immature granulocytes(IG's)percentage an d absolute count will include metamyelocytes, myelocytes, and promyelo cytes. Blood smears from CBCs yielding IG's will be scanned manually for concor dance. If this scan disagrees with the automated IG or if promyelocytes are not ed, a manual differential will be performed. Kym Gran Abs 0.02 0.00 - 0.04 x10(3)/[facility] Specimen Anatomical Collection Method Collection Time Receive d Time (Source) Location / / Volume Laterality Blood specimen 07/31/2017 9:47 PM 017 9:51 (specimen) EST PM EST Resulting Agency Comment Spec In Lab Rama Mccrary MD HEMATOLOGY ORDERABLES Performing Organization Address City/[facility]/[place] [address] (ABNORMAL) Hemogram (07/31/2017 9:47 PM EST) Analysis Performed At Patho logist Time Signature WBC 5.8 4.0 - 9.5 [facility] x10(3)/[facility] LABORATORY RBC 4.00 (L) 4.58 - [facility] 5.54 [facility] x10(6)/[facility] LABORATORY Hemoglobin 12.0 (L) 13.7 - [facility] 16.5 gm/dL [facility] Hematocrit 34.2 (L) 40.5 - [facility] 48.5 % [facility] MCV 85.5 82.9 - [facility] 93.1 [facility] LABORATORY MCH 30.0 27.5 - [facility] 32.1 pg [facility] MCHC 35.1 32.0 - [facility] 35.7 gm/dL [facility] Platelets 210 145 - 357 [facility] x10(3)/[facility] LABORATORY RDWSD 39.3 36.0 - [facility] 45.0 [facility] LABORATORY RDWCV 12.6 11.4 - [facility] 13.8 % [facility] MPV 10.1 7.6 - 12.9 [facility] LABORATORY nRBC % Auto 0.0 % [facility] nRBC Abs Auto 0.000 0.000 - [facility] 0.000 [facility] x10(3)/[facility] LABORATORY Specimen Anatomical Collection Method Collection Time Receive d Time (Source) Location / / Volume Laterality Blood specimen 07/31/2017 9:47 PM 017 9:51 (specimen) EST PM EST Resulting Agency Comment Spec In Lab Rama Mccrary MD HEMATOLOGY ORDERABLES Performing Organization Address City/State/[place] [address] CD19 (07/31/2017 9:47 PM EST) P athologist Signature CD19% 6 6 - 23 % [facility] CD19 ABS 118 99 - 473 [facility] /[facility] LABORATORY Comment: This assay is a dual platform determin ation. ??The PERCENTAGE of lymphocytes bearing the CD19 is determined using inocente w cytometry immunophenotyping. ??The ABSOULTE COUNT of [id number] is de termined by multiplying the percentages [...] M ar;130(3):388-393]. WBC 5.8 4.0 - 9.5 x10(3)/[facility] LABORATORY Lymphocytes % 34.5 % [facility] Lymphocytes Abs 2.0 0.9 - 3.2 x10(3)/[facility] LABORATORY Specimen Anatomical Collection Method Collection Time Receive d Time (Source) Location / / Volume Laterality Blood specimen 07/31/2017 9:47 PM 017 9:51 (specimen) EST PM EST Resulting Agency Comment Spec In Lab Rama Mccrary MD HEMATOLOGY ORDERABLES Performing Organization Address City/State/[place] [address] (ABNORMAL) CD4+8 (07/31/2017 9:47 PM EST) P athologist Signature CD3% 90 (H) 55 - 82 % [facility] CD3 ABS 1,796 731 - [facility] 2,438 /[facility] LABORATORY CD4% 32 (L) 35 - 61 % [facility] CD4 ABS 642 503 - [facility] 1,736 /[facility] LABORATORY CD8% 54 (H) 12 - 38 % [facility] CD8 ABS 1,085 (H) 162 - [facility] 1,026 /[facility] LABORATORY Comment: This assay is a dual [...] Ratio 0.59 (L) 1.09 - 4.26 ratio [facility] LABORATORY WBC 5.8 4.0 - 9.5 x10(3)/[facility] LABORATORY Lymphocytes % 34.5 % [facility] Lymphocytes Abs 2.0 0.9 - 3.2 x10(3)/[facility] Specimen Anatomical Collection Method Collection Time Receive d Time (Source) Location / / Volume Laterality Blood specimen 07/31/2017 9:47 PM 017 9:51 (specimen) EST PM EST Resulting Agency Comment Spec In Lab Rama Mccrary MD HEMATOLOGY ORDERABLES Performing Organization Address City/[facility]/[place] [address] (ABNORMAL) Sedimentation rate (07/31/2017 9:47 PM EST) P athologist Signature Sed Rate 17 (H) 0 - 15 [facility] mm/hr [facility] Specimen Anatomical Collection Method Collection Time Receive d Time (Source) Location / / Volume Laterality Blood specimen 07/31/2017 9:47 PM 017 9:51 (specimen) EST PM EST Resulting Agency Comment Spec In Lab Rama Mccrary MD HEMATOLOGY ORDERABLES Performing Organization Address City/[facility]/ZIP [facility] [place] [address] XR Sinuses (Generic) (07/31/2017 [...] fluid levels to suggest mastoiditis. [facility] also demonstrates well [...] fluid levels to suggest mastoiditis. [facility] also demonstrates well aerated mastoid air cells on er 2016. No air-fluid levels are identified within the visualized maxilla ry and ethmoid air cells. Frontal sinuses are not pneumatized. IMPRESSION No radiographic findings to suggest mast oiditis. Rama Mccrary MD IMG DX ORDERABLES Urinalysis with reflex Culture (07/31/2017 8:55 PM EST) [facility] Method Time Signature Glucose UA Negative Negative [facility] mg/dL [facility] Protein UA Negative Negative [facility] mg/dL [facility] Bilirubin UA Negative Negative [facility] mg/dL [facility] Comment: Clinical correlation required for [...] HOSPITAL LABORATORY Leukocytes UA Negative Negative [facility]ATORY Appearance UA Clear Clear [facility] Spec [place] UA 1.011 1.002 - 1.030 [facility] Color UA Yellow Yellow [facility] Culture Reflexed No [facility] Specimen (Source) Anatomical Collection Method Collection Time Re ceived Time Location / / Volume Laterality Urine specimen 07/31/2017 8:55 07/31/2017 9:11 obtained by clean PM EST PM EST catch procedure (specimen) Resulting Agency Comment Spec In Lab Rama Mccrary MD URINE ORDERABLES Performing Organization Address City/[facility] [place] [address] Blood culture (07/31/2017 8:15 PM EST) [employer] gist Method Time Signature Blood Culture No growth TIFFANI GREENE at 5 days. [facility] Specimen Anatomical Location Collection Method Collection Time Received Time (Source) / Laterality / Volume Blood specimen ANTECUBITAL REGION 07/31/2017 8:15 1208/2016 9:02 (specimen) STRUCTURE / Unknown PM EST PM EST Comment: SET 2 Resulting Agency Comment Spec In Lab Rama Mccrary MD MICROBIOLOGY - BLOOD ORDERAB LES Performing Organization Address City/[facility]/[place] [address] Blood culture (07/31/2017 8:08 PM EST) Patholo gist Method Time Signature Blood Culture No growth TIFFANI GREENE at 5 days. [facility] Specimen Anatomical Location Collection Method Collection Time Received Time (Source) / Laterality / Volume Blood specimen ANTECUBITAL REGION 07/31/2017 8:08 1208/2016 9:01 (specimen) STRUCTURE / Unknown PM EST PM EST Comment: SET 1 Resulting Agency Comment Spec In Lab Rama Mccrary MD MICROBIOLOGY - BLOOD ORDERAB LES Performing Organization Address City/[facility]/[place] [address] Sedimentation rate (07/31/2017 8:07 PM EST) P athologist Signature Sed Rate Clotted 0 - 15 [facility] Comment: Called by: ANDREW, [...] Mccrary MD HEMATOLOGY ORDERABLES Performing Organization Address City/[facility]/[place] [address] (ABNORMAL) CRP, acute inflammation (07/31/2017 8:07 PM EST) P athologist Signature CRP 37.9 (H) <=4.9 mg/L [facility] Comment: result rechecked-[facility] Specimen Anatomical Collection Method Collection Time Receive d Time (Source) Location / / Volume Laterality Blood specimen 07/31/2017 8:07 PM 017 8:21 (specimen) EST PM EST Resulting Agency Comment Spec In Lab Rama Mccrary MD CHEMISTRY ORDERABLES Performing Organization Address City/[facility]/[place] [address] IgG (07/31/2017 8:07 PM EST) P athologist Signature IgG 1,081 700 - 1,600 [facility] mg/dL [facility] Specimen Anatomical Collection Method Collection Time Receive d Time (Source) Location / / Volume Laterality Blood specimen 07/31/2017 8:07 PM 017 8:21 (specimen) EST PM EST Resulting Agency Comment Spec In Lab Rama Mccrary MD IMMUNOLOGY ORDERABLES Performing Organization Address City/[facility]/[place] [address] Tacrolimus level (07/31/2017 8:07 PM EST) athologist Signature Tacrolimus Lvl 5.8 ng/mL [facility] Comment: Trough therapeutic: ??5-15 ng/mL Performed by ultra-performance liquid ch romatography tandem mass spectrometry (UPLCMS/MS). This test was developed and its performa nce characteristics determined by [facility]. It has not been [...] Mccrary MD CHEMISTRY ORDERABLES Performing Organization Address City/[facility] [place] [address] Prothrombin Time (07/31/2017 8:07 PM EST) athologist Signature PT 13.6 11.8 - 14.0 [facility] LABORATORY INR 1.1 0.9 - 1.1 [facility] Comment: An INR <2.0 [...] Mccrary MD HEMATOLOGY ORDERABLES Performing Organization Address City/[facility] [place] [address] Film Library- Storage Only CT Spine (07/29/2017 12:05 AM EST) Specimen (Source) Anatomical Location Collection Method / Collectio n Time Received Time / Laterality Volume Narrative RAD - 07/31/2017 6:24 PM EST This exam is for storage only and is aut o-finalizing. MD CHARLIE Kumar III FILM LIBRARY ORDERAB LES Performing Organization Address [facility] Phon e Number DH RAD DH RAD [place], [place] Film Library- Storage Only CT Chest Abdomen Pelvis (07/29/2017 12:00 AM EST) Specimen (Source) Anatomical Location Collection Method / Collectio n Time Received Time / Laterality Volume Narrative RAD - 07/31/2017 6:24 PM EST This exam is for storage only and is aut o-finalizing. MD CHARLIE Kumar III FILM LIBRARY ORDERAB LES Performing Organization Address [facility] Phon e Number DH RAD DH RAD [place] Film Library- Storage Only CT Head (07/27/2017 12:00 AM EST) Specimen (Source) Anatomical Location Collection Method / Collectio n Time Received Time / Laterality Volume Narrative RAD - 07/31/2017 6:27 PM EST This exam is for storage only and is aut o-finalizing. MD CHARLIE Kumar III FILM LIBRARY ORDERAB LES Performing Organization Address [facility] Phon e Number DH RAD DH RAD [place] Film Library- Storage Only DX Chest (07/26/2017 12:00 AM EST) Specimen (Source) Anatomical Location Collection Method / Collectio n Time Received Time / Laterality Volume Narrative [facility] - 07/31/2017 6:26 PM EST This exam is for storage only and is aut o-finalizing. MD CHARLIE Kumar III FILM LIBRARY ORDERAB LES Performing Organization Address City/[facility] Phon e Number DH RAD DH RAD [place], [place] Film Library- Storage Only MR Head (07/17/2017 12:00 AM EST) Specimen (Source) Anatomical Location Collection Method / Collectio n Time Received Time / Laterality Volume Narrative RAD - 07/31/2017 6:26 PM EST This exam is for storage only and is aut o-finalizing. MD CHARLIE Kumar III FILM LIBRARY ORDERAB LES Performing Organization Address City/State/ZIP Code Phon e Number [place], [place] Film Library- Storage Only CT Head (06/30/2017 12:00 AM EDT) Specimen (Source) Anatomical Location Collection Method / Collectio n Time Received Time / Laterality Volume Narrative [facility] - 07/31/2017 6:25 PM EST This exam is for storage only and is aut o-finalizing. Bruce Moreno III, MD IM[facility]igitte FILM LIBRARY ORDERAB LES Performing Organization Address City/State/ZIP Code Phon e Number [place], [place] documented in this encounter Visit Diagnoses [...] 60 Minutes, Indication for (Active or Suspected): INSOLE CEMENTER/Meningitis New Bag 07/31/2017 10:58 PM EST 1,000 [...] 30 Minutes, Indication for (Active or Suspected): INSOLE CEMENTER/Meningitis doxycycline 100 mg vial attach to New Bag 08/01/2017 8:[address] 100 mg 100 mL/hr sodium chloride 0.9% 100 mL Mini-Bag Plus 100 mg, Intravenous, EVERY 12 HOURS, First dose on Thu07/31/17 at 2100, Until Discontinued, Administer over 60 Minutes, Warning Vesicant/Irritant Medication , Indication for (Active or Suspected): INSOLE CEMENTER/Meningitis New Bag 07/31/2017 9:57 PM EST 100 [...] 60 Minutes, Indication for (Active or Suspected): INSOLE CEMENTER/Meningitis aspirin chewable tablet 81 mg 0838 (Given [...] Medication , Indication for (Active or Suspected): INSOLE CEMENTER/Meningitis enoxaparin (LOVENOX) injection 40 mg 2045 (Given [...] Marrero RN) 0643 (Given - Provider: Ni Barrzaa RN) 627 (Gi ankit - Provider: Polina [...] 0900 (Not Given - Provider: Juan Carlos sahin RN - Reason: Order parameters not met [...] first.
documented in this encounter Care Teams [facility] Relationship Specialty Start Date End Date Anna Mullen MD PCP - General 12/03/10 [address] [place] [address] documented as of this encounter
--- OUTSIDE RECORDS SUMMARY | 2022-04-04 00:46 | XMS_ITS | Encounter Summary ---
:1965 Author Organization [facility] [place] [address] Care Team Providers Name Role Phone Anna Mullen MD Primary Care Provider Encounter Details Date Type Department Care Team Description 06/30/2017 Hospital Encounter [place] [id number] Social History Tobacco Use Types Packs/Day [...] City/State/ZIP Code Phon e Number [place] documented in this encounter Visit Diagnoses Not on filedocumented in this encounter Care Teams Work Manager Relationship Specialty Start Date End Date Anna Mullen MD PCP - General 12/03/10 [address] [place] [address] documented as of this encounter
--- OUTSIDE RECORDS SUMMARY | 2022-04-04 00:46 | XMS_ITS | Encounter Summary ---
:1965 Author Organization [place] [address] Care Team Providers Name Role Phone Anna Mullen MD Primary Care Provider Encounter Details Date Type Department Care Team Description 08/06/2016 Laboratory Appointment Lab 3L Tiffani Hall Pancreas replaced by [facility] [place] [id number] Social History Tobacco Use Types Packs/Day Years [...] Component Value Ref Test Analysis Performed At [facility] Range Method Time Signature BKV Blood Not Detected [facility] LABORATORY BKV Blood BK Virus Plasma Result Interpretation [facility] Result: BK Virus not detected HOSPITAL Specimen type: plasma LABORATO RY Assay Range: 2.83-8.83 log copies/mL (6.8x10^2 - 6.8x10^8 co pies/mL) Methods: Quantitative real-time polymerase chain react ion (PCR) of viral DNA isolated from plasma was performed using [employer] (formerly, [employer]) BKV analyte-specific reagents and the Applied Nextivity 7 500 FAST Real-Time PCR System. In [...] test was developed and its performance [facility] determined by the Clinical Genomics and Advanc ed Technology (CGAT) Laboratory at [facility]. It has not been cleared or approved [...] Organization Address City/State/ZIP Code Phon e Number [place] [id number] HOSPITAL LABORATORY Drive (ABNORMAL) Differential, Automated (08/06/2016 9:36 AM EST) P athologist Signature Neutrophils % 56.4 % [facility] LABORATORY Neutr Abs (ANC) 5.21 1.70 - [facility] 6.10 [facility] x10(3)/[facility] LABORATORY Lymphocytes % 33.6 % [facility] LABORATORY Lymphocytes Abs 3.1 0.9 - 3.2 [facility] x10(3)/[facility] LABORATORY Monocytes % 7.5 % [facility] LABORATORY Monocyte Abs 0.7 0.3 - 0.9 [facility] x10(3)/[facility] LABORATORY Eosinophils % 1.4 % [facility] LABORATORY Eosinophils Abs 0.1 0.0 - 0.4 [facility] x10(3)/[facility] LABORATORY Basophils % 0.5 % [facility] LABORATORY Basophils Abs 0.0 0.0 - 0.1 [facility] x10(3)/[facility] LABORATORY Immature Gran % 0.60 % [facility] LABORATORY Comment: Immature granulocytes(IG's)percentage an d absolute count will include metamyelocytes, myelocytes, and promyelo cytes. Blood smears from CBCs yielding IG's will be scanned manually for salvatore torres. If this scan disagrees with the automated IG or if promyelocytes are not ed, a manual differential will be performed. Kym Gran Abs 0.06 (H) 0.00 - 0.04 x10(3)/[facility] LABORATORY Specimen Anatomical Collection Method Collection Time Receive d Time (Source) Location / / Volume Laterality Blood specimen 08/06/2016 9:36 AM 016 9:43 (specimen) EST AM EST Resulting Agency Comment Spec In Lab Eriberto Melgar MD HEMATOLOGY ORDERABLES Performing Organization Address City/State/[place] [address] Hemogram (08/06/2016 9:36 AM EST) P athologist Signature WBC 9.2 4.0 - 9.5 [facility] x10(3)/[facility] LABORATORY RBC 4.86 4.58 - [facility] 5.54 [facility] x10(6)/[facility] LABORATORY Hemoglobin 14.2 13.7 - [facility] 16.5 gm/dL [facility] LABORATORY Hematocrit 42.1 40.5 - [facility] 48.5 % [facility] LABORATORY MCV 86.6 82.9 - [facility] 93.1 [facility] LABORATORY MCH 29.2 27.5 - [place] 32.1 pg [facility] LABORATORY MCHC 33.7 32.0 - [facility] 35.7 gm/dL [facility] LABORATORY Platelets 278 145 - 357 [facility] x10(3)/[facility] LABORATORY RDWSD 38.8 36.0 - [facility] 45.0 [facility] LABORATORY RDWCV 12.4 11.4 - [facility] 13.8 % [facility] LABORATORY MPV 10.0 7.6 - 12.9 [facility] LABORATORY nRBC % Auto 0.0 % [facility] LABORATORY nRBC Abs Auto 0.000 0.000 - [facility] 0.000 [facility] x10(3)/[facility] LABORATORY Specimen Anatomical Collection Method Collection Time Receive d Time (Source) Location / / Volume Laterality Blood specimen 08/06/2016 9:36 AM 016 9:43 (specimen) EST AM EST Resulting Agency Comment Spec In Lab Eriberto Melgar MD HEMATOLOGY ORDERABLES Performing Organization Address City/[facility]/ZIP Code Phon e Number [address] (ABNORMAL) Vitamin D, 25-Hydroxy (08/06/2016 9:36 AM EST) P athologist Signature 25-OH Vit D 29 (L) 30 - 100 [facility] Total ng/mL [facility] LABORATORY Comment: Deficient <10 ng/mL Insufficient 10 to 29 ng/mL Sufficient 30 to 100 ng/mL Potential Intoxication >100 ng/mL According to the [place] National Osteoporosi s Foundation, Vitamin D concentrations >30 ng/mL are sufficient to protect bone health. ??The National Kidney Foundation has similarly stated that pat ients with Vitamin D concentrations <30ng/mL should be considered to be insu fficient or deficient. http://Hipster/DHnatlkidneyfoundat ion http://Hipster/DHMCVitD The [employer] Vitamin D Immunoassay detec [...] Organization Address City/State/ZIP Code Phon e Number [address] Uric acid (08/06/2016 9:36 AM EST) P athologist Signature Uric Acid 6.9 3.5 - 8.5 [facility] mg/dL [facility] LABORATORY Specimen Anatomical Collection Method Collection Time Receive d Time (Source) Location / / Volume Laterality Blood specimen 08/06/2016 9:36 AM 016 9:43 (specimen) EST AM EST Resulting Agency Comment Spec In Lab Eriberto Melgar MD CHEMISTRY ORDERABLES Performing Organization Address City/[facility]/ZIP Code Phon e Number [address] Tacrolimus level (08/06/2016 9:36 AM EST) P athologist Signature Tacrolimus Lvl 8.7 ng/mL [facility] LABORATORY Comment: Trough [...] [facility]/ZIP Code Phon e Number [address] PTH (08/06/2016 9:36 AM EST) P athologist Signature PTH 64 15 - 65 [facility] [place] pg/mL [facility] LABORATORY Specimen Anatomical Collection Method Collection Time Receive d Time (Source) Location / / Volume Laterality Blood specimen 08/06/2016 9:36 AM 016 9:44 (specimen) EST AM EST Resulting Agency Comment Spec In Lab Eriberto Melgar MD CHEMISTRY ORDERABLES Performing Organization Address City/[facility]/[place] [address] Phosphorus (08/06/2016 9:36 AM EST) P athologist Signature Phosphorus 3.0 2.5 - 4.5 [facility] mg/dL [facility] LABORATORY Specimen Anatomical Collection Method Collection Time Receive d Time (Source) Location / / Volume Laterality Blood specimen 08/06/2016 9:36 AM 016 9:43 (specimen) EST AM EST Resulting Agency Comment Spec In Lab Eriberto Melgar MD CHEMISTRY ORDERABLES Performing Organization Address City/[facility]/ZIP Code Phon e Number [place] [address] Magnesium (08/06/2016 9:36 AM EST) P athologist Signature Magnesium 0.71 0.69 - 1.07 [facility] mmol/L [facility] LABORATORY Specimen Anatomical Collection Method Collection Time Receive d Time (Source) Location / / Volume Laterality Blood specimen 08/06/2016 9:36 AM 016 9:43 (specimen) EST AM EST Resulting Agency Comment Spec In Lab Eriberto Melgar MD CHEMISTRY ORDERABLES Performing Organization Address City/State/ZIP Code Phon e Number [address] Lipid Panel (08/06/2016 9:36 AM EST) Patholo gist Method Time Signature Chol, Total 147 <=239 [facility] mg/dL [facility] LABORATORY Triglycerides 161 <=199 [facility] mg/dL [facility] LABORATORY HDL 43 >=40 [facility] mg/dL [facility] LABORATORY LDL Cholesterol 72 <=190 [facility] mg/dL [facility] LABORATORY Chol/HDL Ratio 3.4 ratio [facility] LABORATORY Lipid See Note TIFFANI Interpretation [facility] LABORATORY Comment: Lipid management should be guided by a p atient? s ASCVD risk, goals and preferences. ACC/AHA Guidelines recommend high intens ity statin if clinical ASCVD or LDL greater than or equal to 190 mg/dL. http://circ.ahajournals.org/content/dusty y/.cir.5626485265.74810.7a Adults aged 40-75 with LDL 70-189 mg/dL should have their 10 year ASCVD risk estimated with the ACC/AHA ASCVD risk es timator http://tools.acc.org/LXIXK-Mklg-Tyevobjx r/ Statin should be discussed if risk [...] [facility]/ZIP Code Phon e Number [address] Lipase (08/06/2016 9:36 AM EST) P athologist Signature Lipase 16 0 - 60 [facility] unit/L [facility] LABORATORY Specimen Anatomical Collection Method Collection Time Receive d Time (Source) Location / / Volume Laterality Blood specimen 08/06/2016 9:36 AM 016 9:43 (specimen) EST AM EST Resulting Agency Comment Spec In Lab Eriberto Melgar MD CHEMISTRY ORDERABLES Performing Organization Address City/[facility]/ZIP Code Phon e Number [address] Lavender Tube HOLD (08/06/2016 9:36 AM EST) Patholo gist Method Time Signature Lavender Hold Sample in [facility]. [facility] LABORATORY Specimen Anatomical Collection Method Collection Time Receive d Time (Source) Location / / Volume Laterality Blood specimen 08/06/2016 9:36 AM 016 9:44 (specimen) EST AM EST Eriberto Melgar MD HEMATOLOGY ORDERABLES Performing Organization Address City/[facility]/ZIP Code Phon e Number [address] Hemoglobin A1c (08/06/2016 9:36 AM EST) P athologist Signature Hemoglobin A1C 5.4 4.3 - 5.6 [facility] LABORATORY Comment: Reference Range: 4.3 - [...] Est Avg Gluc 108 mg/dL [facility] LAB[facility] Comment: eAG equivalents for HbA1c percentages: HbA1c(%) ?eAG(mg/dL) 6.0 ?126 6.5 ?140 7.0 ?154 7.5 ?169 8.0 ?183 8.5 ?197 9.0 ?212 9.5 ?226 10.0 ? 240 Limitations: The eAG calculation has not been validated on women, individuals below 18 years old and above 70 years old, and individuals with hemoglobinopathies. Additional resources are available on ADA website: http://Hipster/DHMCadacalc Edinson GRISSOM, Nathaniel J, Ari R, et al. ??Tr anslating the A1C assay into estimated average glucose values. ??Diabetes Care 2008:31(8):5812-3958. Specimen Anatomical Collection Method Collection Time Receive d Time (Source) Location / / Volume Laterality Blood specimen 08/06/2016 9:36 AM 016 9:43 (specimen) EST AM EST Resulting Agency Comment Spec In Lab Eriberto Melgar MD CHEMISTRY ORDERABLES Performing Organization Address City/State/ZIP Code Phon e Number [facility], [place] [address] Gold Tube HOLD (08/06/2016 9:36 AM EST) athologist Signature Gold Hold Sample in [facility] lab. [facility] LABORATORY Specimen Anatomical Collection Method Collection Time Receive d Time (Source) Location / / Volume Laterality Blood specimen 08/06/2016 9:36 AM 016 9:43 (specimen) EST AM EST Eriberto Melgar MD CHEMISTRY ORDERABLES Performing Organization Address City/State/[place] [address] (ABNORMAL) CMP w/fasting Glucose (08/06/2016 9:36 AM EST) athologist Signature Glucose 105 (H) 65 - 99 [facility] Fasting mg/dL [facility] LABORATORY Comment: ?Fasting* Glucose Interpretive C [...] of Diabetes Mellitus, Position Statement from the [place] [employer]. ??Diabete s Care, Volume 33, Supplement 1, Aug 2009 BUN 15 10 - 20 mg/dL [facility] LABORATORY Creatinine 1.09 0.80 - 1.50 mg/dL [facility] LABORATORY Comment: Please note that the pediatric reference intervals supplied above were not validated at [facility]. Results from pediatri c patients should be interpreted in conjunction to the patient's age, height and muscle mass. Sodium 133 (L) 135 - 145 mmol/L [facility] LABORATORY Potassium 4.5 3.5 - 5.0 mmol/L [facility] LABORATORY Comment: Please note: ??Patients with WBC >100,00 0 may have falsely elevated Potassium levels. ??For accurate Potassium quantif ication in these patients send serum separator tube (gold top) for subsequent determinations. ??Contact the Clinical Chemistry Laboratory if there are any qu estions. Chloride 93 (L) 98 - 107 mmol/L [facility] LABORAT[facility] CO2 25 22 - 31 mmol/L [facility] Anion Gap 15 5 - 15 mmol/L [facility]OR[facility]ORY Calcium 9.5 8.5 - 10.5 mg/dL [facility]OR[facility] Total Protein 7.7 6.1 - 8.0 gm/dL [facility] LABORATORY Albumin 4.9 3.2 - 5.2 gm/dL [facility] LABORAT[facility] AST 25 0 - 39 unit/L [facility] ALT 22 0 - 55 unit/L [facility] Alk Phos 128 (H) 40 - 120 unit/L [facility] LABORAT[facility] Total Bilirubin 1.2 0.2 - 1.3 mg/dL [facility]OR[facility] Bili, Direct 0.2 0.0 - 0.3 mg/dL [facility] LABORATORY Estimated GFR [...] the following links into your internet browser. http://Hipster/DHnkdep http://Hipster/DHMCnkf Specimen Anatomical Collection Method Collection Time Receive d Time (Source) Location / / Volume Laterality Blood specimen 08/06/2016 9:36 AM 016 9:43 (specimen) EST AM EST Resulting Agency Comment Spec In Lab Eriberto Melgar MD CHEMISTRY ORDERABLES Performing Organization Address City/State/[place] [address] Amylase (08/06/2016 9:36 AM EST) athologist Signature Amylase 55 28 - 100 [facility] unit/L [facility] LABORATORY Specimen Anatomical Collection Method Collection Time Receive d Time (Source) Location / / Volume Laterality Blood specimen 08/06/2016 9:36 AM 016 9:43 (specimen) EST AM EST Resulting Agency Comment Spec In Lab Eriberto Melgar MD CHEMISTRY ORDERABLES Performing Organization Address City/State/ZIP Code Phon e Number [address] 1,25-dihydroxycholecalciferol (08/06/2016 9:36 AM EST) athologist [facility] Vit D ,25 52 18 - 64 [facility] pg/mL [facility] LABORATORY Comment: ADDITIONAL INFORMATIO N This test was developed and its performa nce characteristics determined by [facility] in a manner co nsistent with CLIA requirements. This test has not been gene ared or approved by the U.S. Food and Drug Administration. Test Performed by: [place] [id number] [employer] Pump Operator: Dung Buenrostro II, M.D., Ph.D. Specimen Anatomical Collection Method Collection Time Receive d Time (Source) Location / / Volume Laterality Blood specimen 08/06/2016 9:36 AM 016 (specimen) EST 11:26 AM EST Resulting Agency Comment Spec In Lab Eriberto Melgar MD CHEMISTRY ORDERABLES Performing Organization Address City/State/[place] [address] Protein/Creatinine Ratio, urine (08/06/2016 9:34 AM EST) athologist [facility] U Creatinine 69 mg/dL [facility] U Protein Ran <6 0 - 12 [facility] mg/dL [facility] Prot/Cre Ratio <0.1 ratio [facility] Specimen Anatomical Collection Method Collection Time Receive d Time (Source) Location / / Volume Laterality Urine specimen 08/06/2016 9:34 AM 016 9:45 (specimen) EST AM EST Resulting Agency Comment Spec In Lab Eriberto Melgar MD URINE ORDERABLES Performing Organization Address City/[facility]/ZIP Code Phon e Number [address] Phosphorus, urine, random (08/06/2016 9:34 AM EST) P athologist Signature U Phosphorus <3.0 mg/dL [facility] LABORATORY Specimen Anatomical Collection Method Collection Time Receive d Time (Source) Location / / Volume Laterality Urine specimen 08/06/2016 9:34 AM 016 9:45 (specimen) EST AM EST Resulting Agency Comment Spec In Lab Eriberto Melgar MD URINE ORDERABLES Performing Organization Address City/[facility]/[place] [address] Calcium Creatinine Ratio, random urine (08/06/2016 9:34 AM EST) P athologist Signature U Calcium 2.0 mg/dL [facility] U Creatinine 69 mg/dL [facility] Ca/Cre Ratio 0.03 ratio [facility] Specimen Anatomical Collection Method Collection Time Receive d Time (Source) Location / / Volume Laterality Urine specimen 08/06/2016 9:34 AM 9:45 (specimen) EST AM EST Resulting Agency Comment Spec In Lab Eriberto Melgar MD URINE ORDERABLES Performing Organization Address City/[facility]/[place] [address] Urinalysis with reflex Culture (08/06/2016 9:33 AM EST) Patholo gist Method Time Signature Glucose UA Negative Negative [facility] mg/dL [facility] Protein UA Negative Negative [facility] mg/dL [facility] Bilirubin UA Negative Negative [facility] mg/dL [facility] Comment: Clinical correlation required for positi ve Urine Bilirubin results as false positive may occur with some drugs and d rug related products. If a false positive is suspected a serum total bili sinha should be considered if clinically indicated. Urobilinogen UA Normal Normal mg/dL [facility]OR[facility] pH UA 5.0 5.0 - 8.0 [facility] Blood UA Negative Negative mg/dL [facility] Ketones UA Negative Negative mg/dL [facility] Nitrite UA Negative Negative [facility] Leukocytes UA Negative Negative [facility] LABORATORY Appearance UA Clear Clear [facility] Spec [place] UA 1.010 1.002 - 1.030 [facility] Color UA Yellow Yellow [facility]ORATORY RBC UA <1 0 - 3 /HPF [facility] WBC UA <1 0 - 3 /HPF [facility] Culture Reflexed No [facility]OR[facility] Specimen (Source) Anatomical Collection Method Collection Time Re ceived Time Location / / Volume Laterality Urine specimen 08/06/2016 9:33 08/06/2016 9:45 obtained by clean AM EST AM EST catch procedure (specimen) Resulting Agency Comment Spec In Lab Eriberto Melgar MD URINE ORDERABLES Performing Organization Address City/[facility]/ZIP Code Phon e Number [address] U24 Hrs and Volume (08/06/2016 9:30 AM EST) P athologist Signature Hours 24 hour(s) [facility] LABORATORY Urine TV (ml) 3,500 mL [facility] LABORATORY Specimen Anatomical Collection Method Collection Time Receive d Time (Source) Location / / Volume Laterality Urine specimen 08/06/2016 9:30 AM 016 (specimen) EST 10:05 AM EST Resulting Agency Comment Spec In Lab Eriberto Melgar MD CHEMISTRY ORDERABLES Performing Organization Address City/[facility]/ZIP [facility] Phon e Number [address] Uric acid, urine, 24 hour (08/06/2016 9:30 AM EST) P athologist Signature U24 Uric Conc 11.4 mg/dL [facility] LABORATORY U24 Uric Calc 0.40 0.25 - [facility] [address] LABORATORY Specimen Anatomical Collection Method Collection Time Receive d Time (Source) Location / / Volume Laterality Urine specimen 08/06/2016 9:30 AM 016 (specimen) EST 10:06 AM EST Resulting Agency Comment Spec In Lab Eriberto Melgar MD URINE ORDERABLES Performing Organization Address City/State/ZIP Code Phon e Number [address] (ABNORMAL) Protein, urine, 24 hour (08/06/2016 9:30 AM EST) Patholo gist Method Time Signature U24 Prot Conc <6 <=80 mg/dL [facility] LABORATORY U24 Prot Calc <0.21 (H) <=0.[address] LABORATORY Specimen Anatomical Collection Method Collection Time Receive d Time (Source) Location / / Volume Laterality Urine specimen 08/06/2016 9:30 AM 016 (specimen) EST 10:05 AM EST Resulting Agency Comment Spec In Lab Eriberto Melgar MD URINE ORDERABLES Performing Organization Address City/[facility]/[place] [address] Phosphorus, urine, 24 hour (08/06/2016 9:30 AM EST) P athologist Signature U24 Phos Conc 14.3 mg/dL [facility] LABOR[facility] U24 Phos Calc 0.5 0.4 - 1.[address] LABORATORY Specimen Anatomical Collection Method Collection Time Receive d Time (Source) Location / / Volume Laterality Urine specimen 08/06/2016 9:30 AM 016 (specimen) EST 10:05 AM EST Resulting Agency Comment Spec In Lab Eriberto Melgar MD URINE ORDERABLES Performing Organization Address City/[facility]/ZIP Code Phon e Number [place] [id number] [address]OSP[address] LAB[address] Creatinine, urine, 24 hour (08/06/2016 9:30 AM EST) athologist Signature U24 Creat Conc 32 mg/dL [facility] LABOR[facility] U24 Creat Calc 1.12 0.80 - [facility] [address] LABORATORY Specimen Anatomical Collection Method Collection Time Receive d Time (Source) Location / / Volume Laterality Urine specimen 08/06/2016 9:30 AM 016 (specimen) EST 10:05 AM EST Resulting Agency Comment Spec In Lab Eriberto Melgar MD URINE ORDERABLES Performing Organization Address City/State/ZIP Code Phon e Number [address] (ABNORMAL) Creatinine Clearance, urine, 24 hour (08/06/2016 9:30 AM EST) athologist Signature Creat 71 (L) 90 - 139 [facility] Clearance mL/min [facility] LABORATORY U24 Creat Conc 32 mg/dL [facility] U24 Creat Calc 1.12 0.80 - [facility] [address] LABORATORY Specimen Anatomical Collection Method Collection Time Receive d Time (Source) Location / / Volume Laterality Urine specimen 08/06/2016 9:30 AM 016 (specimen) EST 10:05 AM EST Resulting Agency Comment Spec In Lab Eriberto Melgar MD URINE ORDERABLES Performing Organization Address City/State/ZIP Code Phon e Number [address] Calcium, urine, 24 hour (08/06/2016 9:30 AM EST) athologist Signature U24 Ca Conc 1.5 mg/dL [facility] U24 Ca Calc 52.5 50.0 - [facility] 300.[address] [facility] LABORATORY Comment: Reference Range: 50.0-300.0 mg/ 24 hour based on diet. 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
--- OUTSIDE RECORDS SUMMARY | 2022-04-04 00:46 | XMS_ITS | Encounter Summary ---
:1965 Author Organization [facility] [address] Care Team Providers Name Role Phone Anna Mullen MD Primary Care Provider Reason for Visit Reason Comments Medication Refill Encounter Details Date Type Department Care Team Description 03/05/2017 [facility] [place] [address] [place] [address] [phone] (Wo rk) Social History Tobacco Use Types [...] filedocumented in this encounter Care Teams Compliance Investigator Relationship Specialty Start Date End Date Anna Mullen MD PCP - General 12/03/10 [address] [place], [place] [address] documented as of this encounter
--- OUTSIDE RECORDS SUMMARY | 2022-04-04 00:46 | XMS_ITS | Encounter Summary ---
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 [facility] Specimen Anatomical Collection Method Collection Time Receive d Time (Source) Location / / Volume Laterality Blood specimen 09/15/2017 9:11 AM 018 9:23 (specimen) EST AM EST Eriberto Melgar MD CHEMISTRY ORDERABLES Performing Organization Address City/[facility]/ZIP Code Phon e Number [address] Lavender Tube HOLD (09/15/2017 9:11 AM EST) Patholo gist Method Time Signature Lavender Hold Sample in [facility] LABORATORY Specimen Anatomical Collection Method Collection Time Receive d Time (Source) Location / / Volume Laterality Blood specimen 09/15/2017 9:11 AM 018 9:22 (specimen) EST AM EST Eriberto Melgar MD HEMATOLOGY ORDERABLES Performing Organization Address City/[facility] [place] [address] (ABNORMAL) Vitamin D, 25-Hydroxy (09/15/2017 9:11 AM EST) athologist Signature 25-OH Vit D 22 (L) 30 - 100 [facility] Total ng/mL [facility] Comment: Deficient <10 ng/mL Insufficient 10 to 29 ng/mL Sufficient 30 to 100 ng/mL Potential Intoxication >100 ng/mL According to the [place] National Osteoporosi s Foundation, Vitamin D concentrations >30 ng/mL are sufficient to protect bone health. ??The National Kidney Foundation has similarly stated that pat ients with Vitamin D concentrations <30ng/mL should be considered to be insu fficient or deficient. http://FoodyDirect.com/nkf-guidelines http://FoodyDirect.com/nejm-VitD The IDS iSYS Vitamin D Immunoassay detec [...] Melgar MD CHEMISTRY ORDERABLES Performing Organization Address City/[facility] Phon e Number [address] Uric acid (09/15/2017 9:11 AM EST) athologist Signature Uric Acid 7.7 3.5 - 8.5 [facility] mg/dL [facility] Specimen Anatomical Collection Method Collection Time Receive d Time (Source) Location / / Volume Laterality Blood specimen 09/15/2017 9:11 AM 018 9:23 (specimen) EST AM EST Resulting Agency Comment Spec In Lab Eriberto Melgar MD CHEMISTRY ORDERABLES Performing Organization Address [facility] [place] [address] Tacrolimus level (09/15/2017 9:11 AM EST) athologist [facility] Tacrolimus Lvl 8.3 ng/mL [facility] Comment: Trough therapeutic: ??5-15 ng/mL Performed by ultra-performance liquid ch romatography tandem mass spectrometry (UPLCMS/MS). This test was developed and its performa nce characteristics determined by [facility]. It has not been cleared [...] Melgar MD CHEMISTRY ORDERABLES Performing Organization Address [facility] Phon e Number [address] Reticulocyte Count (09/15/2017 9:11 AM EST) athologist Signature Retic Ct % 1.0 0.7 - 2.6 [facility] % [facility] Retic Ct Abs 0.040 0.030 - [facility] [place] 0.120 [facility] x10(6)/[facility] LABORATORY Immature Retic% 4.9 0.0 - 15.6 [facility] K % [facility] Reticulated Hgb 34.1 31[address] [facility] Specimen Anatomical Collection Method Collection Time Receive d Time (Source) Location / / Volume Laterality Blood specimen 09/15/2017 9:11 AM 018 9:22 (specimen) EST AM EST Resulting Agency Comment Spec In Lab Eriberto Melgar MD HEMATOLOGY ORDERABLES Performing Organization Address City/[facility]/ZIP Code Phon e Number [address] (ABNORMAL) PTH (09/15/2017 9:11 AM EST) P athologist Signature PTH 85 (H) 15 - 65 [facility] pg/mL [facility] Specimen Anatomical Collection Method Collection Time Receive d Time (Source) Location / / Volume Laterality Blood specimen 09/15/2017 9:11 AM 018 9:22 (specimen) EST AM EST Resulting Agency Comment Spec In Lab Eriberto Melgar MD CHEMISTRY ORDERABLES Performing Organization Address City/[facility]/ZIP Code Phon e Number [address] Phosphorus (09/15/2017 9:11 AM EST) P athologist Signature Phosphorus 3.1 2.5 - 4.5 [place] mg/dL [facility] Specimen Anatomical Collection Method Collection Time Receive d Time (Source) Location / / Volume Laterality Blood specimen 09/15/2017 9:11 AM 018 9:23 (specimen) EST AM EST Resulting Agency Comment Spec In Lab Eriberto Melgar MD CHEMISTRY ORDERABLES Performing Organization Address City/[facility]/ZIP Code Phon e Number [address] BKV Quant Blood (09/15/2017 9:11 AM EST) Component Value Ref Test Analysis Performed At Patholo gist Range Method Time Signature BKV Blood Not Detected TIFFANI Result [facility] BKV Blood BK Virus Plasma Result Interpretation TIFFANI Michellep [facility] Result: BK Virus not detected HOSPITAL Specimen type: plasma LABORATO RY Assay Range: 2.83-8.83 log copies/mL (6.8x10^2 - 6.8x10^8 co pies/mL) Methods: Quantitative real-time polymerase chain react ion (PCR) of viral DNA isolated from plasma was performed using [employer] (formerly, Culture Kitchen) BKV analyte-specific reagents and the SoCAT 7 500 FAST Real-Time PCR System. In [...] and Advanc ed Technology (CGAT) Laboratory at [facility]. It has not been cleared or approved [...] Organization Address City/State/[place] [address] Magnesium (09/15/2017 9:11 AM EST) P athologist Signature Magnesium 0.83 0.69 - 1.07 [facility] mmol/L [facility] Specimen Anatomical Collection Method Collection Time Receive d Time (Source) Location / / Volume Laterality Blood specimen 09/15/2017 9:11 AM 018 9:23 (specimen) EST AM EST Resulting Agency Comment Spec In Lab Eriberto Melgar MD CHEMISTRY ORDERABLES Performing Organization Address City/State/ZIP Code Phon e Number [place] [address] (ABNORMAL) Lipid Panel (09/15/2017 9:11 AM EST) [facility] Method Time Signature Chol, Total 151 <=239 TIFFANI mg/dL [facility] Triglycerides 110 <=199 TI[place] mg/dL [facility] HDL 36 (L) >=40 [place] mg/dL [facility] LDL Cholesterol 93 <=190 [place] mg/dL [facility] Chol/HDL Ratio 4.2 ratio [facility] Lipid See Note TIFFANI Interpretation [facility] Comment: Lipid management should be guided by a p atient? s ASCVD risk, goals and preferences. ACC/AHA Guidelines recommend high intens ity statin if clinical ASCVD or LDL greater than or equal to 190 mg/dL. http://[employer]/HVV-XRS-Sgokrxuqq Adults aged 40-75 with LDL 70-189 mg/dL should have their 10 year ASCVD risk estimated with the ACC/AHA ASCVD risk es timator http://tools.acc.org/RZXTH-Swas-Msrcsqlh r/ Statin should be discussed if risk [...] Address City/State/ZIP Code Phon e Number [place] [address] Lipase (09/15/2017 9:11 AM EST) athologist Signature Lipase 24 0 - 60 [facility] unit/L [facility] Specimen Anatomical Collection Method Collection Time Receive d Time (Source) Location / / Volume Laterality Blood specimen 09/15/2017 9:11 AM 018 9:23 (specimen) EST AM EST Resulting Agency Comment Spec In Lab Eriberto Melgar MD CHEMISTRY ORDERABLES Performing Organization Address City/State/ZIP Code Phon e Number [address] Hemoglobin A1c (09/15/2017 9:11 AM EST) athologist Signature Hemoglobin A1C 5.4 4.3 - 5.6 [facility] Comment: Reference Range: [...] 1, S67-74 Est Avg Gluc 108 mg/dL [facility] Comment: eAG equivalents for HbA1c percentages: HbA1c(%) ?eAG(mg/dL) 6.0 ?126 6.5 ?140 7.0 ?154 7.5 ?169 8.0 ?183 8.5 ?197 9.0 ?212 9.5 ?226 10.0 ? 240 Limitations: The eAG calculation has not been validated on women, individuals below 18 years old and above 70 years old, and individuals with hemoglobinopathies. Additional resources are available on [facility] website. Edinson GRISSOM, Nathaniel J, Ari R, et al. ??Tr anslating the A1C assay into estimated average glucose values. ??Diabetes Care 2008:31(8):8539-0022. Specimen Anatomical Collection Method Collection Time Receive d Time (Source) Location / / Volume Laterality Blood specimen 09/15/2017 9:11 AM 018 9:22 (specimen) EST AM EST Resulting Agency Comment Spec In Lab Eriberto Melgar MD CHEMISTRY ORDERABLES Performing Organization Address City/State/ZIP Code Phon e Number [place] [id number] (ABNORMAL) CMP w/fasting Glucose (09/15/2017 9:11 AM EST) athologist Signature Glucose 116 (H) 65 - 99 [facility] Fasting mg/dL [facility] Comment: ?Fasting* Glucose Interpretive C [...] of Diabetes Mellitus, Position Statement from the [place] [employer]. ??Diabete s Care, Volume 33, Supplement 1, Aug 2009 BUN 15 10 - 20 mg/dL [facility] Creatinine 1.17 0.80 - 1.50 mg/dL [facility] Sodium 134 (L) 135 - 145 mmol/L [facility] Potassium 4.5 3.5 - 5.0 mmol/L [facility] Comment: Please note: ??Patients with WBC >100,00 0 may have falsely elevated Potassium levels. ??For accurate Potassium quantif ication in these patients send serum separator tube (gold top) for subsequent determinations. ??Contact the Clinical Chemistry Laboratory if there are any qu estions. Chloride 97 (L) 98 - 107 mmol/L [facility] CO2 27 22 - 31 mmol/L [facility] Anion Gap 10 5 - 15 mmol/L [facility] Calcium 9.0 8.5 - 10.5 mg/dL [facility] Total Protein 7.4 6.1 - 8.0 gm/dL [facility] Albumin 4.1 3.2 - 5.2 gm/dL [facility] AST 34 0 - 39 unit/L [facility] ALT 28 0 - 55 unit/L [facility] Alk Phos 151 (H) 40 - 120 unit/L [facility] Total Bilirubin 0.9 0.2 - 1.3 mg/dL [facility] Estimated GFR >60 >=60 [facility] Comment: The reported eGFR should be multiplied b y 1.2 for patients. The MDRD is not an appropriate measure o f renal function for patients with body mass extremes or in patients with acute kidney failure. http://FoodyDirect.King Solarman/DHnkdep http://[employer]/DHMCnkf Specimen Anatomical Collection Method Collection Time Receive d Time (Source) Location / / Volume Laterality Blood specimen 09/15/2017 9:11 AM 018 9:23 (specimen) EST AM EST Resulting Agency Comment Spec In Lab Eriberto Melgar MD CHEMISTRY ORDERABLES Performing Organization Address City/State/ZIP [place] [address] Amylase (09/15/2017 9:11 AM EST) P athologist Signature Amylase 55 28 - 100 [place] [place] unit/L [facility] Specimen Anatomical Collection Method Collection Time Receive d Time (Source) Location / / Volume Laterality Blood specimen 09/15/2017 9:11 AM 018 9:23 (specimen) EST AM EST Resulting Agency Comment Spec In Lab Eriberto Melgar MD CHEMISTRY ORDERABLES Performing Organization Address City/[facility]/ZIP Code Phon e Number [address] 1,25-dihydroxycholecalciferol (09/15/2017 9:11 AM EST) P athologist Signature Vit D 1,25 59 18 - 64 [place] pg/mL [facility] Comment: ADDITIONAL INFORMATIO N This test was developed and its performa nce characteristics determined by [facility] in a manner co nsistent with CLIA requirements. This test has not been gene ared or approved by the U.S. Food and Drug Administration. Test Performed by: [facility] [address] [place], [place] [address] Specimen Anatomical Collection Method Collection Time Receive d Time (Source) Location / / Volume Laterality Blood specimen 09/15/2017 9:11 AM 018 1:38 (specimen) EST PM EST Resulting Agency Comment Spec In Lab Eriberto Melgar MD CHEMISTRY ORDERABLES Performing Organization Address City/[facility]/ZIP [place] [address] (ABNORMAL) Urinalysis with reflex Culture (09/15/2017 9:08 AM EST) Patholo gist Method Time Signature Glucose UA Negative Negative [facility] [place] mg/dL [facility] Protein UA Negative Negative [facility] [place] mg/dL [facility] Bilirubin UA Negative Negative [facility] [place] mg/dL [facility] Comment: Clinical correlation required for positi ve Urine Bilirubin results as false positive may occur with some drugs and d rug related products. If a false positive is suspected a serum total bili sinha should be considered if clinically indicated. Urobilinogen UA >=4.0 (A) Normal mg/dL [facility] pH UA 6.0 5.0 - 8.0 [facility] Blood UA Negative Negative mg/dL [facility] Ketones UA Negative Negative mg/dL [facility] Nitrite UA Negative Negative [facility] Leukocytes UA Negative Negative [facility] LABORATORY Appearance UA Clear Clear [facility] Spec Morgan UA 1.015 1.002 - 1.030 [facility] Color UA Yellow Yellow [facility] Culture Reflexed No [facility] Specimen (Source) Anatomical Collection Method Collection Time Re ceived Time Location / / Volume Laterality Urine specimen 09/15/2017 9:08 09/15/2017 9:16 obtained by clean AM EST AM EST catch procedure (specimen) Resulting Agency Comment Spec In Lab Eriberto Melgar MD URINE ORDERABLES Performing Organization Address City/State/ZIP Code Phon e Number [address] Protein/Creatinine Ratio, urine (09/15/2017 9:08 AM EST) P athologist Signature U Creatinine 164 mg/dL [facility] U Protein Ran 12 0 - 12 [facility] mg/dL [facility] Prot/Cre Ratio <0.1 ratio [facility] Specimen Anatomical Collection Method Collection Time Receive d Time (Source) Location / / Volume Laterality Urine specimen 09/15/2017 9:08 AM 018 9:16 (specimen) EST AM EST Resulting Agency Comment Spec In Lab Eriberto Melgar MD URINE ORDERABLES Performing Organization Address City/[facility]/ZIP Code Phon e Number [address] Phosphorus, urine, random (09/15/2017 9:08 AM EST) P athologist Signature U Phosphorus 45.8 mg/dL [facility] Specimen Anatomical Collection Method Collection Time Receive d Time (Source) Location / / Volume Laterality Urine specimen 09/15/2017 9:08 AM 018 9:16 (specimen) EST AM EST Resulting Agency Comment Spec In Lab Eriberto Melgar MD URINE ORDERABLES Performing Organization Address City/[facility]/[place] [address] Calcium Creatinine Ratio, random urine (09/15/2017 9:08 AM EST) athologist Signature U Calcium 1.9 mg/dL [facility] U Creatinine 164 mg/dL [facility] Ca/Cre Ratio 0.01 ratio [facility] Specimen Anatomical Collection Method Collection Time Receive d Time (Source) Location / / Volume Laterality Urine specimen 09/15/2017 9:08 AM 018 9:16 (specimen) EST AM EST Resulting Agency Comment Spec In Lab Eriberto Melgar MD URINE ORDERABLES Performing Organization Address City/[facility]/[place] [address] documented in this encounter Visit Diagnoses Diagnosis 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
--- OUTSIDE RECORDS SUMMARY | 2022-04-04 00:46 | XMS_ITS | Encounter Summary ---
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 Aftercare following organ transplant History of ASCVD (arteriosclerotic cardiovascular disease) Eriberto Melgar [facility] Non-Inv Card Lab Procedures Echo pharm stress test (DSE) [facility] [place] [address] [place] [address] Referral ID Status Reason Start Date Expiration Visits Visits Date Requested Authorized [id number] Specialty 07/09/2017 09/06/2017 1 1 Service Requested Reason for Visit Reason Comments Pancreas Transplant Follow-up Immunotherapy Encounter Details Date Type Department Care Team Description 02/11/2017 Office Visit Solid Organ Sayda Melgar ed by transplant; [place] [facility] [place]to Stoddard MD Aftercare following organ transplant; [facility] Encounter for long-term (current) use of other medications; [facility] Prophylactic immunotherapy; [place], [place] TRANSPLANT History of ASCV D (arteriosclerotic cardiovascular disease) [id number] SURGERY [phone] [place], [place] [address] Social History Tobacco Use Types [...] Melgar MD - 02/11/2017 9:20 AM EDT [facility] Transplant Nephrology Follow Up ?? Richard Hsu [id number] 1965 ?? Transplant ID: Patient: Richard Hsu Transplant Date: 08/28/13 Organ(s) Pancreas [place] organ diagnosis: Diabetes Mellitus - Type I [...] is now followed by a chiropractor in [place], [place]. ? Interim Hx: No interim problems [...] for non diabetics; needs one this year [place] kidney ultrasound looking for renal cell CA, [...] Negative mcL Appearance UA Clear Clear Spec [place] UA 1.006 1.002 - 1.030 Color UA [...] AM EDT) P athologist Signature EF 65 [employer] SYSTEM Specimen (Source) Anatomical Location Collection Method / Collectio n Time Received Time / Laterality Volume 03/11/2018 Narrative [facility] - 03/11/2018 10:02 AM ED T Procedure: ?Stress Echocardiogram Patient: ?VAZQUEZ LEIGH W ?(Age): 1965(52y) Med Rec#: ? [id number] ?Sex: ?M ? [place] [facility] [place]Ht / Wt: ??183(cm)/92(kg) Pt. Loc: ?Echo Lab ?BSA: ?2.14 Study Date: ?? 03/11/2018 ?Pt. Type: Tape: ? Referring: Eriberto Melgar Reading: Bebo Dickens ([id number]) Electronics Worker: Ariel Bazzi Electronics Worker: Nya Doss Nurse: Lacey Sánchez Diagnosis: *Pancreas [...] rate (170 beats/min), peak rate pressure product 38764. The patient did not express feelings of [...] Normal ? Mid-Inferoseptal ?Normal ? Normal ? [place]-Septal ? Normal ? Normal ? [place]-Anterior ? Normal ? Normal ? [place]-Lateral ?Normal ? Normal ? [place]-Inferior ? Normal ? Normal ? [place]-Tip ?Normal ? Normal ? This report has been electronically sign ed by: _ Bebo Dickens MD ? 03/11/2018 10:02 :13 Images reviewed and interpretation verif ied [facility] Cardiac Ultrasound Laboratory Procedure Note Bebo Dickens MD - 03/11/2018Formattin g of this note might be different from the original. Procedure: Stress Echocardiogram Patient: VAZQUEZ Guillen DOB(Age): [birth year]52y) Med Rec#: [id number] Sex: M [place] [facility] Ht / Wt: 183(cm)/92(kg) Pt. Loc: Echo Lab BSA: 2.14 Study Date: 03/11/2018 Pt. Type: Tape: Referring: Eriberto Melgar Reading: Bebo Dickens ([id number]) Electronics Worker: Ariel Bazzi Electronics Worker: Nya Doss Nurse: Lacey Sánchez Diagnosis: *Pancreas [...] rate (170 beats/min), peak rate pressure product 32859. The patient did not express feelings of [...] ic Mid-Inferior Normal Normal Mid-Inferoseptal Normal Normal [place]-Septal Normal Normal [place]-Anterior Normal Normal [place]-Lateral Normal Normal [place]-Inferior Normal Normal [place]-Tip Normal Normal This report has been electronically sign ed by: _ Bebo Dickens MD 03/11/2018 10:02:13 Images reviewed and interpretation versusie almazand [facility] Cardiac Ultrasound Laboratory Eriberto Melgar MD ECHO ORDERABLES Performing Organization Address City/State/ZIP Code Phon e Number [facility] Urinalysis with reflex Culture (02/11/2017 8:21 AM EDT) [facility] Method Time Signature Glucose UA Negative Negative [facility] mg/dL [facility] Protein UA Negative Negative [facility] mg/dL [facility] Bilirubin UA Negative Negative [facility] mg/dL [facility] Comment: Clinical correlation required for positi ve Urine Bilirubin results as false positive may occur with some drugs and d rug related products. If a false positive is suspected a serum total bili sinha should be considered if clinically indicated. Urobilinogen UA Normal Normal mg/dL [facility] pH UA 7.0 5.0 - 8.0 [facility] Blood UA Negative Negative mg/dL [facility] Ketones UA Negative Negative mg/dL [facility] Nitrite UA Negative Negative [facility] Leukocytes UA Negative Negative [facility] LABORATORY Appearance UA Clear Clear [facility] Spec [place] UA 1.006 1.002 - 1.030 [facility] Color UA Straw Yellow [facility] RBC UA Not Present 0 - 3 /HPF [facility] WBC UA Not Present 0 - 3 /HPF [facility] Culture Reflexed No [facility] Specimen (Source) Anatomical Collection Method Collection Time Re ceived Time Location / / Volume Laterality Urine specimen 02/11/2017 8:21 02/11/2017 8:28 obtained by clean AM EDT AM EDT catch procedure (specimen) Resulting Agency Comment Spec In Lab Eriberto Melgar MD URINE ORDERABLES Performing Organization Address City/State/[place] [address] Protein/Creatinine Ratio, urine (02/11/2017 8:21 AM EDT) athologist Signature U Creatinine 42 mg/dL [facility] U Protein Ran <6 0 - 12 [facility] mg/dL [facility] Prot/Cre Ratio <0.1 ratio [facility] Specimen Anatomical Collection Method Collection Time Receive d Time (Source) Location / / Volume Laterality Urine specimen 02/11/2017 8:21 AM 017 8:29 (specimen) EDT AM EDT Resulting Agency Comment Spec In Lab Eriberto Melgar MD URINE ORDERABLES Performing Organization Address City/[facility]/ZIP Code Phon e Number [address] Gold Tube HOLD (02/11/2017 8:14 AM EDT) athologist Signature Gold Hold Sample in [facility] LABORATORY Specimen Anatomical Collection Method Collection Time Receive d Time (Source) Location / / Volume Laterality Blood specimen 02/11/2017 8:14 AM 017 8:25 (specimen) EDT AM EDT Eriberto Melgar MD CHEMISTRY ORDERABLES Performing Organization Address City/[facility]/ZIP Code Phon e Number [address] Lavender Tube HOLD (02/11/2017 8:14 AM EDT) [facility] Method Time Signature Lavender Hold Sample in [facility] LABORATORY Specimen Anatomical Collection Method Collection Time Receive d Time (Source) Location / / Volume Laterality Blood specimen 02/11/2017 8:14 AM 017 8:25 (specimen) EDT AM EDT Eriberto Melgar MD HEMATOLOGY ORDERABLES Performing Organization Address City/[facility]/ZIP Code Phon e Number [address] Uric acid (02/11/2017 8:14 AM EDT) athologist Signature Uric Acid 6.8 3.5 - 8.5 [facility] mg/dL [facility] Specimen Anatomical Collection Method Collection Time Receive d Time (Source) Location / / Volume Laterality Blood specimen 02/11/2017 8:14 AM 017 8:25 (specimen) EDT AM EDT Resulting Agency Comment Spec In Lab Eriberto Melgar MD CHEMISTRY ORDERABLES Performing Organization Address [facility] Phon e Number [address] Tacrolimus level (02/11/2017 8:14 AM EDT) athologist Signature Tacrolimus Lvl 6.8 ng/mL [facility] Comment: Trough therapeutic: ??5-15 ng/mL Performed by ultra-performance liquid ch romatography tandem mass spectrometry (UPLCMS/MS). This test was developed and its performa nce characteristics determined by [facility]. It has not been cleared [...] CHEMISTRY ORDERABLES Performing Organization Address [facility] Phon e Number [address] Reticulocyte Count (02/11/2017 8:14 AM EDT) athologist Signature Retic Ct % 1.2 0.7 - 2.6 [facility] LABORATORY Retic Ct Abs 0.060 0.030 - [facility] 0.120 [facility] x10(6)/[facility] LABORATORY Immature Retic% 2.5 0.0 - 15.6 [facility] Reticulated Hgb 34.2 31.3 - [facility] 40.2 pg [facility] Specimen Anatomical Collection Method Collection Time Receive d Time (Source) Location / / Volume Laterality Blood specimen 02/11/2017 8:14 AM 017 8:25 (specimen) EDT AM EDT Resulting Agency Comment Spec In Lab Eriberto Melgar MD HEMATOLOGY ORDERABLES Performing Organization Address City/[facility]/ZIP Code Phon e Number [address] Phosphorus (02/11/2017 8:14 AM EDT) P athologist Signature Phosphorus 2.9 2.5 - 4.5 [facility] mg/dL [facility] Specimen Anatomical Collection Method Collection Time Receive d Time (Source) Location / / Volume Laterality Blood specimen 02/11/2017 8:14 AM 017 8:25 (specimen) EDT AM EDT Resulting Agency Comment Spec In Lab Eriberto Melgar MD CHEMISTRY ORDERABLES Performing Organization Address City/[facility]/ZIP Code Phon e Number [address] Magnesium (02/11/2017 8:14 AM EDT) athologist Signature Magnesium 0.76 0.69 - 1.07 [facility] mmol/L [facility] Specimen Anatomical Collection Method Collection Time Receive d Time (Source) Location / / Volume Laterality Blood specimen 02/11/2017 8:14 AM 017 8:25 (specimen) EDT AM EDT Resulting Agency Comment Spec In Lab Eriberto Melgar MD CHEMISTRY ORDERABLES Performing Organization Address City/[facility]/[place] [address] (ABNORMAL) Comprehensive metabolic panel (non-fasting) (02/11/2017 8:14 AM EDT) P athologist Signature Glucose Lvl 110 65 - 199 [facility] mg/dL [facility] Comment: Diabetes: >=200 mg/dL plus symp toms BUN 14 10 - 20 mg/dL [facility] Creatinine 1.08 0.80 - 1.50 mg/dL [facility] Comment: Please note that the pediatric reference intervals supplied above were not validated [place] [facility] Results from pediatri c patients should be interpreted in conjunction to the patient's age, height and muscle mass. Sodium 132 (L) 135 - 145 mmol/L [facility] Potassium 4.8 3.5 - 5.0 mmol/L [facility] Comment: Please note: ??Patients with WBC >100,00 0 may have falsely elevated Potassium levels. ??For accurate Potassium quantif ication in these patients send serum separator tube (gold top) for subsequent determinations. ??Contact the Clinical Chemistry Laboratory if there are any qu estions. Chloride 95 (L) 98 - 107 mmol/L [facility] CO2 24 22 - 31 mmol/L [facility] Anion Gap 13 5 - 15 mmol/L [facility] Calcium 9.2 8.5 - 10.5 mg/dL [facility] Total Protein 7.4 6.1 - 8.0 gm/dL [facility] Albumin 4.6 3.2 - 5.2 gm/dL [facility] AST 24 0 - 39 unit/L [facility] ALT 24 0 - 55 unit/L [facility] Alk Phos 102 40 - 120 unit/L [facility] Total Bilirubin 1.3 0.2 - 1.3 mg/dL [facility] Bili, Direct 0.2 0.0 [...] the following links into your internet browser. [email or web address] Specimen Anatomical Collection Method Collection Time Receive d Time (Source) Location / / Volume Laterality Blood specimen 02/11/2017 8:14 AM 017 8:25 (specimen) EDT AM EDT Resulting Agency Comment Spec In Lab Eriberto Melgar MD CHEMISTRY ORDERABLES Performing Organization Address City/State/ZIP Code [place] [address] Cholesterol, total (02/11/2017 8:14 AM EDT) Patholo gist Method Time Signature Chol, Total 138 <=239 [place] mg/dL [facility] Lipid See Note [place] Interpretation [facility] Comment: Lipid management should be guided by a p atient? s ASCVD risk, goals and preferences. ACC/AHA Guidelines recommend high intens ity statin if clinical ASCVD or LDL greater than or equal to 190 mg/dL. [email or web address] Adults aged 40-75 with LDL 70-189 mg/dL should have their 10 year ASCVD risk estimated with the ACC/AHA ASCVD risk es timator http://tools.acc.org/EXINR-Qvma-Amrnfsdl r/ Statin should be discussed if risk [...] Address City/State/ZIP Code [place] [address] Lipase (02/11/2017 8:14 AM EDT) P athologist Signature Lipase 20 0 - 60 [facility] LABORATORY Specimen Anatomical Collection Method Collection Time Receive d Time (Source) Location / / Volume Laterality Blood specimen 02/11/2017 8:14 AM 017 8:25 (specimen) EDT AM EDT Resulting Agency Comment Spec In Lab Eriberto Melgar MD CHEMISTRY ORDERABLES Performing Organization Address City/[facility]/ZIP [facility] Phon e Number [address] Amylase (02/11/2017 8:14 AM EDT) P athologist Signature Amylase 60 28 - 100 [facility] LABORATORY Specimen Anatomical Collection Method Collection Time Receive d Time (Source) Location / / Volume Laterality Blood specimen 02/11/2017 8:14 AM 017 8:25 (specimen) EDT AM EDT Resulting Agency Comment Spec In Lab Eriberto Melgar MD CHEMISTRY ORDERABLES Performing Organization Address City/[facility] [address] documented in this encounter [...] system documented in this encounter Care Teams White Metal Corrosion Proofer Relationship Specialty Start Date End Date Anna Mullen MD PCP - General 12/03/10 [address] [place] [address] documented as of this encounter
--- OUTSIDE RECORDS SUMMARY | 2022-04-04 00:46 | XMS_ITS | Encounter Summary ---
:1965 Author Organization [place] [address] Care Team Providers Name Role Phone Anna Mullen MD Primary Care Provider Reason for Visit Reason Comments Medication Refill Encounter Details Date Type Department Care Team Description 05/14/2017 Refill Solid [facility] [place] [address] [place] [address] [phone] (Wo rk) Social History Tobacco Use Types [...] on filedocumented in this encounter Care Teams Admitting Clerk Relationship Specialty Start Date End Date Anna Mullen MD PCP - General 12/03/10 [address] [place] [address] documented as of this encounter
--- OUTSIDE RECORDS SUMMARY | 2022-04-04 00:46 | XMS_ITS | Encounter Summary ---
:1965 Author Organization [facility] [place] [address] Care Team Providers Name Role Phone Anna Mullen MD Primary Care Provider Encounter Details Date Type Department Care Team Description 07/29/2017 Telephone Solid Organ Transplant at Yomaira Zamudio [facility] [place], [place] [address] Social History Tobacco Use Types Packs/Day [...] on filedocumented in this encounter Care Teams Cable Placer Relationship Specialty Start Date End Date Anna Mullen MD PCP - General 12/03/10 [address] [place] [address] documented as of this encounter
--- OUTSIDE RECORDS SUMMARY | 2022-04-04 00:47 | XMS_ITS | Encounter Summary ---
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; Transplant at [facility] MD Arlyn Aftercare following organ transplant; [facility] Imm unosuppression; Drive Depression, unspecified depression type [place], [place] [address] [place] [address] [phone] Social History Tobacco Use Types Packs/Day Years [...] Melgar MD - 08/06/2016 10:30 AM EST [facility] Transplant Nephrology Follow Up Reese Hsu [id number] 1965 Transplant ID: Patient: Reese Hsu Transplant Date: 08/28/13 Organ(s) Pancreas [place] organ diagnosis: Diabetes Mellitus - Type [...] for diabetics, every 5 for non diabetics [place] kidney ultrasound looking for renal cell [...] packet by mouth daily. 09/01/15 Yes Robert Bhagat MD ondansetron (ZOFRAN) 8 mg [...] UA Latest Ref Range: Clear Clear Spec Parker UA Latest Ref Range: 1.002 - 1.030 [...] Talia Garcia MD Nephrology fellow Pager # [phone] I reviewed all of the above findings [...] Vit D 29 (L) 30 - 100 [facility] Total ng/mL [facility] Comment: Deficient <10 ng/mL Insufficient 10 to 29 ng/mL Sufficient 30 to 100 ng/mL Potential Intoxication >100 ng/mL According to the [place] National Osteoporosi s Foundation, Vitamin D concentrations >30 ng/mL are sufficient to protect bone health. ??The National Kidney Foundation has similarly stated that pat ients with Vitamin D concentrations <30ng/mL should be considered to be insu fficient or deficient. http://Pertino/DHnatlkidneyfoundat ion http://Pertino/DHMCVitD The [employer] Vitamin D Immunoassay detec [...] Organization Address City/State/ZIP [place] [address] Uric acid (08/06/2016 9:36 AM EST) athologist Signature Uric Acid 6.9 3.5 - 8.5 [facility] mg/dL [facility] Specimen Anatomical Collection Method Collection Time Receive d Time (Source) Location / / Volume Laterality Blood specimen 08/06/2016 9:36 AM 016 9:43 (specimen) EST AM EST Resulting Agency Comment Spec In Lab Eriberto Melgar MD CHEMISTRY ORDERABLES Performing Organization Address City/[facility]/ZIP Code Phon e Number [address] Tacrolimus level (08/06/2016 9:36 AM EST) P athologist Signature Tacrolimus Lvl 8.7 ng/mL [facility] Comment: Trough therapeutic: ??5-15 ng/mL Performed by ultra-performance liquid ch romatography tandem mass spectrometry (UPLCMS/MS). Specimen Anatomical Collection Method Collection Time Receive d Time (Source) Location / / Volume Laterality Blood specimen 08/06/2016 9:36 AM 016 (specimen) EST 10:38 AM EST Resulting Agency Comment Spec In Lab Eriberto Melgar MD CHEMISTRY ORDERABLES Performing Organization Address City/[facility]/ZIP Code Phon e Number [address] PTH (08/06/2016 9:36 AM EST) P athologist Signature PTH 64 15 - 65 TIFFANI RAMONA pg/mL [facility] Specimen Anatomical Collection Method Collection Time Receive d Time (Source) Location / / Volume Laterality Blood specimen 08/06/2016 9:36 AM 016 9:44 (specimen) EST AM EST Resulting Agency Comment Spec In Lab Eriberto Melgar MD CHEMISTRY ORDERABLES Performing Organization Address City/[facility]/[place] [address] Phosphorus (08/06/2016 9:36 AM EST) P athologist Signature Phosphorus 3.0 2.5 - 4.5 TIFFANI RAMONA mg/dL [facility] Specimen Anatomical Collection Method Collection Time Receive d Time (Source) Location / / Volume Laterality Blood specimen 08/06/2016 9:36 AM 016 9:43 (specimen) EST AM EST Resulting Agency Comment Spec In Lab Eriberto Melgar MD CHEMISTRY ORDERABLES Performing Organization Address City/[facility]/[place] [address] Magnesium (08/06/2016 9:36 AM EST) P athologist Signature Magnesium 0.71 0.69 - 1.07 [facility] mmol/L [facility] Specimen Anatomical Collection Method Collection Time Receive d Time (Source) Location / / Volume Laterality Blood specimen 08/06/2016 9:36 AM 016 9:43 (specimen) EST AM EST Resulting Agency Comment Spec In Lab Eriberto Melgar MD CHEMISTRY ORDERABLES Performing Organization Address City/State/ZIP Code Phon e Number [place] [phone] [facility] [address] Drive Lipid Panel (08/06/2016 9:36 AM EST) Patholo gist Method Time Signature Chol, Total 147 <=239 TIFFANI mg/dL [facility] Triglycerides 161 <=199 [facility] mg/dL [facility] HDL 43 >=40 TIFFANI mg/dL [facility] LDL Cholesterol 72 <=190 [facility] mg/dL [facility] Chol/HDL Ratio 3.4 ratio [facility] Lipid See Note TIFFANI Interpretation [facility] Comment: Lipid management should be guided by a p atient? s ASCVD risk, goals and preferences. ACC/AHA Guidelines recommend high intens ity statin if clinical ASCVD or LDL greater than or equal to 190 mg/dL. http://circ.ahajournals.org/content/dusty y/.cir.5097202257.74166.7a Adults aged 40-75 with LDL 70-189 mg/dL should have their 10 year ASCVD risk estimated with the ACC/AHA ASCVD risk es timator http://tools.acc.org/PFHVE-Fxja-Gztjnhji r/ Statin should be discussed if risk [...] Melgar MD CHEMISTRY ORDERABLES Performing Organization Address City/[facility]/ZIP Code Phon e Number [address] Lipase (08/06/2016 9:36 AM EST) P athologist Signature Lipase 16 0 - 60 [facility] unit/L [facility] Specimen Anatomical Collection Method Collection Time Receive d Time (Source) Location / / Volume Laterality Blood specimen 08/06/2016 9:36 AM 016 9:43 (specimen) EST AM EST Resulting Agency Comment Spec In Lab Eriberto Melgar MD CHEMISTRY ORDERABLES Performing Organization Address City/[facility]/ZIP Code Phon e Number [address] Lavender Tube HOLD (08/06/2016 9:36 AM EST) Patholo gist Method Time Signature Lavender Hold Sample in [facility] LABORATORY Specimen Anatomical Collection Method Collection Time Receive d Time (Source) Location / / Volume Laterality Blood specimen 08/06/2016 9:36 AM 016 9:44 (specimen) EST AM EST Eriberto Melgar MD HEMATOLOGY ORDERABLES Performing Organization Address City/[facility]/ZIP Code Phon e Number [address] Hemoglobin A1c (08/06/2016 9:36 AM EST) P athologist Signature Hemoglobin A1C 5.4 4.3 - 5.6 [facility] [...] 1, S67-74 Est Avg Gluc 108 mg/dL [facility] Comment: eAG equivalents for HbA1c percentages: HbA1c(%) ?eAG(mg/dL) 6.0 ?126 6.5 ?140 7.0 ?154 7.5 ?169 8.0 ?183 8.5 ?197 9.0 ?212 9.5 ?226 10.0 ? 240 Limitations: The eAG calculation has not been validated on women, individuals below 18 years old and above 70 years old, and individuals with hemoglobinopathies. Additional resources are available on [facility] website: http://[employer].Xipin/MCadacalc Edinson GRISSOM, Nathaniel J, Ari R, et al. ??Tr anslating the A1C assay into estimated average glucose values. ??Diabetes Care 2008:31(8):3348-6637. Specimen Anatomical Collection Method Collection Time Receive d Time (Source) Location / / Volume Laterality Blood specimen 08/06/2016 9:36 AM 016 9:43 (specimen) EST AM EST Resulting Agency Comment Spec In Lab Eriberto Melgar MD CHEMISTRY ORDERABLES Performing Organization Address City/State/ZIP [place] [address] Gold Tube HOLD (08/06/2016 9:36 AM EST) athologist Signature Gold Hold Sample in [facility] lab. [facility] Specimen Anatomical Collection Method Collection Time Receive d Time (Source) Location / / Volume Laterality Blood specimen 08/06/2016 9:36 AM 016 9:43 (specimen) EST AM EST Eriberto Melgar MD CHEMISTRY ORDERABLES Performing Organization Address City/State/ZIP [place] [address] (ABNORMAL) CMP w/fasting Glucose (08/06/2016 9:36 AM EST) athologist Signature Glucose 105 (H) 65 - 99 [facility] Fasting mg/dL [facility] Comment: ?Fasting* Glucose Interpretive C [...] of Diabetes Mellitus, Position Statement from the [place] [employer]. ??Diabete s Care, Volume 33, Supplement 1, Aug 2009 BUN 15 10 - 20 mg/dL [facility] Creatinine 1.09 0.80 - 1.50 mg/dL [facility] Comment: Please note that the pediatric reference intervals supplied above were not validated at [facility]. Results from pediatri c patients should be interpreted in conjunction to the patient's age, height and muscle mass. Sodium 133 (L) 135 - 145 mmol/L [facility] Potassium 4.5 3.5 - 5.0 mmol/L [facility] Comment: Please note: ??Patients with WBC >100,00 0 may have falsely elevated Potassium levels. ??For accurate Potassium quantif ication in these patients send serum separator tube (gold top) for subsequent determinations. ??Contact the Clinical Chemistry Laboratory if there are any qu estions. Chloride 93 (L) 98 - 107 mmol/L [facility] CO2 25 22 - 31 mmol/L [facility] Anion Gap 15 5 - 15 mmol/L [facility] Calcium 9.5 8.5 - 10.5 mg/dL [facility] Total Protein 7.7 6.1 - 8.0 gm/dL [facility] Albumin 4.9 3.2 - 5.2 gm/dL [facility] AST 25 0 - 39 unit/L [facility] ALT 22 0 - 55 unit/L [facility] Alk Phos 128 (H) 40 - 120 unit/L [facility] Total Bilirubin 1.2 0.2 - 1.3 mg/dL [facility] Bili, Direct 0.2 0.0 - 0.3 mg/dL [facility] Estimated GFR >60 >=60 [facility] [...] the following links into your internet browser. [email or web address]/DHnkdep [email or web address]/DHMCnkf Specimen Anatomical Collection Method Collection Time Receive d Time (Source) Location / / Volume Laterality Blood specimen 08/06/2016 9:36 AM 016 9:43 (specimen) EST AM EST Resulting Agency Comment Spec In Lab Eriberto Melgar MD CHEMISTRY ORDERABLES Performing Organization Address City/State/ZIP [place] [address] Amylase (08/06/2016 9:36 AM EST) athologist Signature Amylase 55 28 - 100 [facility] unit/L [facility] Specimen Anatomical Collection Method Collection Time Receive d Time (Source) Location / / Volume Laterality Blood specimen 08/06/2016 9:36 AM 016 9:43 (specimen) EST AM EST Resulting Agency Comment Spec In Lab Eriberto Melgar MD CHEMISTRY ORDERABLES Performing Organization Address City/[facility]/ZIP Code Phon e Number [address] 1,25-dihydroxycholecalciferol (08/06/2016 9:36 AM EST) athologist [facility] Vit D ,25 52 18 - 64 [facility] pg/mL [facility] Comment: ADDITIONAL INFORMATIO N This test was developed and its performa nce characteristics determined by [facility] in a manner co nsistent with CLIA requirements. This test has not been gene ared or approved by the U.S. Food and Drug Administration. Test Performed by: [address] [address] Top Cager: Dung Buenrostro II, M.D., Ph.D. Specimen Anatomical Collection Method Collection Time Receive d Time (Source) Location / / Volume Laterality Blood specimen 08/06/2016 9:36 AM 016 (specimen) EST 11:26 AM EST Resulting Agency Comment Spec In Lab Eriberto Melgar MD CHEMISTRY ORDERABLES Performing Organization Address City/State/ZIP Code Phon e Number [address] Protein/Creatinine Ratio, urine (08/06/2016 9:34 AM EST) athologist Signature U Creatinine 69 mg/dL [facility] U Protein Ran <6 0 - 12 [facility] mg/[facility] Prot/Cre Ratio <0.1 ratio [facility] Specimen Anatomical Collection Method Collection Time Receive d Time (Source) Location / / Volume Laterality Urine specimen 08/06/2016 9:34 AM 9:45 (specimen) EST AM EST Resulting Agency Comment Spec In Lab Eriberto Melgar MD URINE ORDERABLES Performing Organization Address City/[facility]/ZIP Code Phon e Number [address] Phosphorus, urine, random (08/06/2016 9:34 AM EST) P athologist Signature U Phosphorus <3.0 mg/dL [facility] Specimen Anatomical Collection Method Collection Time Receive d Time (Source) Location / / Volume Laterality Urine specimen 08/06/2016 9:34 AM 9:45 (specimen) EST AM EST Resulting Agency Comment Spec In Lab Eriberto Melgar MD URINE ORDERABLES Performing Organization Address [facility]/ZIP [facility] Phon e Number [address] Calcium Creatinine Ratio, random urine (08/06/2016 9:34 AM EST) P athologist Signature U Calcium 2.0 mg/dL [facility] U Creatinine 69 mg/dL [facility] Ca/Cre Ratio 0.03 ratio [facility] Specimen Anatomical Collection Method Collection Time Receive d Time (Source) Location / / Volume Laterality Urine specimen 08/06/2016 9:34 AM 9:45 (specimen) EST AM EST Resulting Agency Comment Spec In Lab Eriberto Melgar MD URINE ORDERABLES Performing Organization Address City/[facility] Phon e Number [address] Urinalysis with reflex Culture (08/06/2016 9:33 AM EST) Patholo gist Method Time Signature Glucose UA Negative Negative [facility] mg/dL [facility] Protein UA Negative Negative [facility] mg/dL [facility] Bilirubin UA Negative Negative [facility] mg/dL [facility] Comment: Clinical correlation required for positi ve Urine Bilirubin results as false positive may occur with some drugs and d rug related products. If a false positive is suspected a serum total bili sinha should be considered if clinically indicated. Urobilinogen UA Normal Normal mg/dL [facility] pH UA 5.0 5.0 - 8.0 [facility] Blood UA Negative Negative mg/dL [facility] Ketones UA Negative Negative mg/dL [facility] Nitrite UA Negative Negative [facility] Leukocytes UA Negative Negative [facility] LABORATORY Appearance UA Clear Clear [facility] Spec Parker UA 1.010 1.002 - 1.030 [facility] Color UA Yellow Yellow [facility] RBC UA <1 0 - 3 /HPF [facility] WBC UA <1 0 - 3 /HPF [facility] Culture Reflexed No [facility] Specimen (Source) Anatomical Collection Method Collection Time Re ceived Time Location / / Volume Laterality Urine specimen 08/06/2016 9:33 08/06/2016 9:45 obtained by clean AM EST AM EST catch procedure (specimen) Resulting Agency Comment Spec In Lab Eriberto Melgar MD URINE ORDERABLES Performing Organization Address City/[facility]/ZIP Code Phon e Number [address] Uric acid, urine, 24 hour (08/06/2016 9:30 AM EST) P athologist Signature U24 Uric Conc 11.4 mg/dL [facility] U24 Uric Calc 0.40 0.25 - [facility] 0.80 [facility] gm/24hr [facility] Specimen Anatomical Collection Method Collection Time Receive d Time (Source) Location / / Volume Laterality Urine specimen 08/06/2016 9:30 AM 016 (specimen) EST 10:06 AM EST Resulting Agency Comment Spec In Lab Eriberto Melgar MD URINE ORDERABLES Performing Organization Address City/State/ZIP Code Phon e Number [address] (ABNORMAL) Protein, urine, 24 hour (08/06/2016 9:30 AM EST) Patholo gist Method Time Signature U24 Prot Conc <6 <=80 mg/dL [facility] U24 Prot Calc <0.21 (H) <=0.[address] LABORATORY Specimen Anatomical Collection Method Collection Time Receive d Time (Source) Location / / Volume Laterality Urine specimen 08/06/2016 9:30 AM 016 (specimen) EST 10:05 AM EST Resulting Agency Comment Spec In Lab Eriberto Melgar MD URINE ORDERABLES Performing Organization Address City/[facility]/ZIP Code Phon e Number [address] Phosphorus, urine, 24 hour (08/06/2016 9:30 AM EST) P athologist Signature U24 Phos Conc 14.3 mg/dL [facility] U24 Phos Calc 0.5 0.4 - 1.3 [facility]/[address] [place] [address] LABORATORY Specimen Anatomical Collection Method Collection Time Receive d Time (Source) Location / / Volume Laterality Urine specimen 08/06/2016 9:30 AM 016 (specimen) EST 10:05 AM EST Resulting Agency Comment Spec In Lab Eriberto Melgar MD URINE ORDERABLES Performing Organization Address City/[facility]/ZIP Code Phon e Number [address] Creatinine, urine, 24 hour (08/06/2016 9:30 AM EST) P athologist Signature U24 Creat Conc 32 mg/dL [facility] U24 Creat Calc 1.12 0.80 - [facility] [address] LABORATORY Specimen Anatomical Collection Method Collection Time Receive d Time (Source) Location / / Volume Laterality Urine specimen 08/06/2016 9:30 AM 016 (specimen) EST 10:05 AM EST Resulting Agency Comment Spec In Lab Eriberto Melgar MD URINE ORDERABLES Performing Organization Address City/[facility]/[place] [address] (ABNORMAL) Creatinine Clearance, urine, 24 hour (08/06/2016 9:30 AM EST) P athologist Signature Creat 71 (L) 90 - 139 [facility] Clearance mL/min [facility] U24 Creat Conc 32 mg/dL [facility] U24 Creat Calc 1.12 0.80 - [facility] 1.90 [facility] gm/24hr [facility] Specimen Anatomical Collection Method Collection Time Receive d Time (Source) Location / / Volume Laterality Urine specimen 08/06/2016 9:30 AM 016 (specimen) EST 10:05 AM EST Resulting Agency Comment Spec In Lab Eriberto Melgar MD URINE ORDERABLES Performing Organization Address City/State/[place] [address] Calcium, urine, 24 hour (08/06/2016 9:30 AM EST) athologist Signature U24 Ca Conc 1.5 mg/dL [facility] U24 Ca Calc 52.5 50.0 - [facility] 300.0 [facility] mg/24hr [facility] Comment: Reference Range: 50.0-300.0 mg/ 24 hour based on diet. 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
--- OUTSIDE RECORDS SUMMARY | 2022-04-04 00:47 | XMS_ITS | Encounter Summary ---
:1965 Author Organization [facility] [place] [address] Care Team Providers Name Role Phone Anna Mullen MD Primary Care Provider Encounter Details Date Type Department Care Team Description 08/23/2015 Orders Only Gastroenterology at [facility] Myrna Marroquin, [facility] [place] [address] Social History Tobacco Use Types Packs/Day [...] on filedocumented in this encounter Care Teams Park Interpreter Relationship Specialty Start Date End Date Anna Mullen MD PCP - General 12/03/10 [address] [place] [address] documented as of this encounter
--- OUTSIDE RECORDS SUMMARY | 2022-04-04 00:47 | XMS_ITS | Encounter Summary ---
:1965 Author Organization [place] [address] Care Team Providers Name Role Phone Anna Mullen MD Primary Care Provider Reason for Visit Reason Comments Medication Refill Encounter Details Date Type Department Care Team Description 04/04/2016 Refill Solid Organ Transplant at Marco Garcia MD [facility] Unique pham [place] [address] [place] [id number] [phone] (Wo rk) Social History Tobacco Use Types [...] filedocumented in this encounter Care Teams Security Systems Manager Relationship Specialty Start Date End Date Anna Mullen MD PCP - General 12/03/10 [address] [place], [place] [id number] documented as of this encounter
--- OUTSIDE RECORDS SUMMARY | 2022-04-04 00:47 | XMS_ITS | Encounter Summary ---
:1965 Author Organization [facility] [place] [address] Care Team Providers Name Role Phone Anna Mullen MD Primary Care Provider Encounter Details Date Type Department Care Team Description 02/22/2016 Hospital Encounter XRay at [facility] Chobanian, Pancreas replaced by transpl ant; [address] [facility] [address] Eriberto Stoddard MD Need for prophylactic immunotherapy [facility] [id number] CENTER [phone] TRANSPLANT SURGERY [place] [phone] Social History Tobacco Use Types Packs/Day Years [...] immunotherapy documented in this encounter Care Teams Wafer Cutter Relationship Specialty Start Date End Date Anna Mullen MD PCP - General 12/03/10 [address] [place] [address] documented as of this encounter
--- OUTSIDE RECORDS SUMMARY | 2022-04-04 00:47 | XMS_ITS | Encounter Summary ---
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; [facility] Negrita kingsley for prophylactic immunotherapy; Drive DR Chang following organ transplant [place] [address] [place] [address] [phone] Social History Tobacco Use Types Packs/Day Years [...] Garcia MD - 02/22/2016 8:51 AM EDT [facility] Transplant Nephrology Follow Up Reese Hsu [id number] 1965 Transplant ID: Patient: Reese Hsu Transplant Date: 08/28/13 Organ(s) Pancreas [place] organ diagnosis: Diabetes Mellitus - Type I [...] for diabetics, every 5 for non diabetics [place] kidney ultrasound looking for renal cell CA, [...] UA Latest Ref Range: Clear Clear Spec [place] UA Latest Ref Range: 1.002 - 1.030 [...] Talia Garcia MD Nephrology fellow Pager # [phone] I reviewed all of the above findings [...] P athologist Signature U Creatinine 58 mg/dL [facility] U Protein Ran <6 0 - 12 [facility] mg/dL [facility] Prot/Cre Ratio <0.1 ratio [facility] Specimen Anatomical Collection Method Collection Time Receive d Time (Source) Location / / Volume Laterality Urine specimen 02/22/2016 7:54 AM 016 8:00 (specimen) EDT AM EDT Resulting Agency Comment Spec In Lab Eriberto Melgar MD URINE ORDERABLES Performing Organization Address City/State/[place] [address] Urinalysis with reflex Culture (02/22/2016 7:54 AM EDT) [facility] Method Time Signature Glucose UA Negative Negative [facility] mg/dL [facility] Protein UA Negative Negative [facility] mg/dL [facility] Bilirubin UA Negative Negative [facility] mg/dL [facility] Comment: Clinical correlation required for [...] [facility] Nitrite UA Negative Negative [facility] Leukocytes UA Negative Negative [facility]ORY Appearance UA Clear Clear [facility] Spec [place] UA 1.006 1.002 - 1.030 [facility] Color UA Yellow Yellow [facility] RBC UA Not Present 0 - 3 /HPF [facility] WBC UA 1 0 - 3 /HPF [facility] Culture Reflexed No [facility] Specimen Anatomical Collection Method Collection Time Receive d Time (Source) Location / / Volume Laterality Urine specimen 02/22/2016 7:54 AM 016 8:01 (specimen) EDT AM EDT Resulting Agency Comment Spec In Lab Eriberto Melgar MD URINE ORDERABLES Performing Organization Address City/[facility]/ZIP Code Phon e Number [address] Amylase (02/22/2016 7:48 AM EDT) athologist Signature Amylase 52 28 - 100 [facility]OR[facility]ORY Specimen Anatomical Collection Method Collection Time Receive d Time (Source) Location / / Volume Laterality Blood specimen 02/22/2016 7:48 AM 016 8:00 (specimen) EDT AM EDT Resulting Agency Comment Spec In Lab Eriberto Melgar MD CHEMISTRY ORDERABLES Performing Organization Address City/[facility]/ZIP Code Phon e Number [address] Lipase (02/22/2016 7:48 AM EDT) athologist Signature Lipase 21 0 - 60 [facility]ORATORY Specimen Anatomical Collection Method Collection Time Receive d Time (Source) Location / / Volume Laterality Blood specimen 02/22/2016 7:48 AM 016 8:00 (specimen) EDT AM EDT Resulting Agency Comment Spec In Lab Eriberto Melgar MD CHEMISTRY ORDERABLES Performing Organization Address City/[facility] [place] [address] (ABNORMAL) Comprehensive metabolic panel (non-fasting) (02/22/2016 7:48 AM EDT) athologist Signature Glucose Lvl 114 65 - 199 [facility] mg/dL [facility] Comment: Diabetes: >=200 mg/dL plus symp toms BUN 15 10 - 20 mg/dL [facility] Creatinine 1.04 0.80 - 1.50 mg/dL [facility] Comment: Please note that the pediatric reference intervals supplied above were not validated at [facility]. Results from pediatri c patients should be interpreted in conjunction to the patient's age, height and muscle mass. Sodium 131 (L) 135 - 145 mmol/L [facility] Potassium 5.0 3.5 - 5.0 mmol/L [facility] [...] Anion Gap 12 5 - 15 mmol/L [facility] Calcium 9.5 8.5 - 10.5 mg/dL [facility] Total Protein 7.6 6.1 - 8.0 gm/dL [facility] Albumin 4.7 3.2 - 5.2 gm/dL [facility] AST 33 0 - 39 unit/L [facility] ALT 29 0 - 55 unit/L [facility] Alk Phos 119 40 - 120 unit/L [facility] Total Bilirubin 1.2 0.2 - 1.3 mg/dL [facility] Bili, Direct 0.2 0.0 - 0.3 mg/dL [facility] Estimated GFR >60 >=60 [facility] Comment: This estimated GFR (eGFR) [...] the following links into your internet browser. http://[employer]/DHnkdep http://[employer]/DHMCnkf Specimen Anatomical Collection Method Collection Time Receive d Time (Source) Location / / Volume Laterality Blood specimen 02/22/2016 7:48 AM 016 8:00 (specimen) EDT AM EDT Resulting Agency Comment Spec In Lab Eriberto Melgar MD CHEMISTRY ORDERABLES Performing Organization Address City/State/ZIP Code Phon e Number [address] Magnesium (02/22/2016 7:48 AM EDT) P athologist Signature Magnesium 0.72 0.69 - 1.07 [facility] [place] mmol/L [facility] Specimen Anatomical Collection Method Collection Time Receive d Time (Source) Location / / Volume Laterality Blood specimen 02/22/2016 7:48 AM 016 8:00 (specimen) EDT AM EDT Resulting Agency Comment Spec In Lab Eriberto Melgar MD CHEMISTRY ORDERABLES Performing Organization Address City/[facility]/ZIP Code Phon e Number [address] Phosphorus (02/22/2016 7:48 AM EDT) P athologist Signature Phosphorus 3.3 2.5 - 4.5 [facility] [place] mg/dL [facility] Specimen Anatomical Collection Method Collection Time Receive d Time (Source) Location / / Volume Laterality Blood specimen 02/22/2016 7:48 AM 016 8:00 (specimen) EDT AM EDT Resulting Agency Comment Spec In Lab Eriberto Melgar MD CHEMISTRY ORDERABLES Performing Organization Address City/[facility]/ZIP Code Phon e Number [address] Uric acid (02/22/2016 7:48 AM EDT) P athologist Signature Uric Acid 6.4 3.5 - 8.5 [facility] [place] mg/dL [facility] Specimen Anatomical Collection Method Collection Time Receive d Time (Source) Location / / Volume Laterality Blood specimen 02/22/2016 7:48 AM 016 8:00 (specimen) EDT AM EDT Resulting Agency Comment Spec In Lab Eriberto Melgar MD CHEMISTRY ORDERABLES Performing Organization Address City/State/ZIP Code Phon e Number [address] Tacrolimus level (02/22/2016 7:48 AM EDT) athologist Signature Tacrolimus Lvl 6.5 ng/mL [facility] Comment: Trough therapeutic: 5-15 ng/mL Specimen Anatomical Collection Method Collection Time Receive d Time (Source) Location / / Volume Laterality Blood specimen 02/22/2016 7:48 AM 016 (specimen) EDT 11:50 AM EDT Resulting Agency Comment Spec In Lab Eriberto Melgar MD CHEMISTRY ORDERABLES Performing Organization Address City/State/ZIP Code Phon e Number [address] Reticulocyte Count (02/22/2016 7:48 AM EDT) athologist [facility] Retic Ct % 1.0 0.5 - 2.4 [facility] Retic Ct Abs 0.050 0.027 - [facility] 0.095 [facility] x10(6)/[facility] LABORATORY Immature Retic% 3.4 2.3 - 15.9 [facility] Reticulated Hgb 30.1 28.5 - [facility] 38.9 [facility] LABORATORY Plat Immature % 2.1 0.0 - 7.4 [facility] Specimen Anatomical Collection Method Collection Time Receive d Time (Source) Location / / Volume Laterality Blood specimen 02/22/2016 7:48 AM 016 8:00 (specimen) EDT AM EDT Resulting Agency Comment Spec In Lab Eriberto Melgar MD HEMATOLOGY ORDERABLES Performing Organization Address City/State/[place] [address] Cholesterol, total (02/22/2016 7:48 AM EDT) athologist Signature Chol, Total 135 <=199 mg/dL [facility] Comment: Recommendations of the NCEP Adult Treatm ent Panel for the following risk cutoff thresholds for the [place] populatio n: Desirable: <200 mg/dL Borderline High: 200-239 mg/dL High: > or = 240 mg/dL Specimen Anatomical Collection Method Collection Time Receive d Time (Source) Location / / Volume Laterality Blood specimen 02/22/2016 7:48 AM 016 8:00 (specimen) EDT AM EDT Resulting Agency Comment Spec In Lab Eriberto Melgar MD CHEMISTRY ORDERABLES Performing Organization Address City/State/[place] [address] (ABNORMAL) Hemoglobin A1c (02/22/2016 7:48 AM EDT) Analysis Performed At Patho logis Time Signature Hemoglobin A1C 5.7 (H) 4.3 - 5.6 [facility] [...] Mellitus, Diabetes Care 2013; 36: Suppl. 1, S67-56 Est Avg Gluc 117 mg/dL [facility] Comment: eAG equivalents for HbA1c percentages: HbA1c(%) ?eAG(mg/dL) 6.0 ?126 6.5 ?140 7.0 ?154 7.5 ?169 8.0 ?183 8.5 ?197 9.0 ?212 9.5 ?226 10.0 ? 240 Limitations: The eAG calculation has not been validated on women, individuals below 18 years old and above 70 years old, and individuals with hemoglobinopathies. Additional resources are available on [facility] website: http://[employer]/[facility]LEadacalc Edinson GRISSOM, Nathaniel J, Ari R, et al. ??Tr anslating the A1C assay into estimated average glucose values. ??Diabetes Care 2008:31(8):2873-5459. 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
--- OUTSIDE RECORDS SUMMARY | 2022-04-04 00:47 | XMS_ITS | Encounter Summary ---
:1965 Author Organization [facility] [place] [address] Care Team Providers Name Role Phone Anna Mullen MD Primary Care Provider Encounter Details Date Type Department Care Team Description 08/05/2016 Abstract Solid Organ Transpla nt at [facility] [place] Manoj Miller, [place] [address] Social History Tobacco Use Types Packs/Day [...] on filedocumented in this encounter Care Teams Percher Relationship Specialty Start Date End Date Anna Mullen MD PCP - General 12/03/10 [address] [place], [place] [id number] documented as of this encounter
--- OUTSIDE RECORDS SUMMARY | 2022-04-04 00:47 | XMS_ITS | Encounter Summary ---
:1965 Author Organization [facility] [place] [address] Care Team Providers Name Role Phone Anna Mullen MD Primary Care Provider Reason for Visit Reason Comments Medication Refill Encounter Details Date Type Department Care Team Description 2015 [facility] [place] [address] [place] [address] [phone] (Wo rk) Social History Tobacco Use Types [...] filedocumented in this encounter Care Teams Manager Clinical Research Relationship Specialty Start Date End Date Anna Mullen MD PCP - General 12/03/10 [address] [place] [address] documented as of this encounter
--- OUTSIDE RECORDS SUMMARY | 2022-04-04 00:47 | XMS_ITS | Encounter Summary ---
:1965 Author Organization [facility] [place] [address] Care Team Providers Name Role Phone Anna Mullen MD Primary Care Provider Encounter Details Date Type Department Care Team Description 08/21/2015 Hospital Encounter Laboratory Pancreas replaced by transpl ant; [facility] Need for [place] [address] Social History Tobacco Use Types [...] Organization Address City/State/[place] [address] CERNER MILLENNIUM Uric acid, [...] Organization Address City/State/[place] [address] CERNER MILLENNIUM Phosphorus, urine, [...] Melgar MD URINE ORDERABLES Performing Organization Address City/[facility] [address]/[place] [address] CERNER MILLENNIUM Calcium, urine, [...] Melgar MD URINE ORDERABLES Performing Organization Address City/[facility] [address]/[place] [address] CERNER MILLENNIUM (ABNORMAL) Creatinine, [...] Melgar MD URINE ORDERABLES Performing Organization Address City/[facility] [address]/ZIP Code Phon e Number [address] CERNER MILLENNIUM (ABNORMAL) Creatinine [...] Organization Address City/State/[place] [address] CERNER MILLENNIUM (ABNORMAL) Protein, [...] Organization Address City/State/[place] [address] CERNER MILLENNIUM documented in this encounter Visit Diagnoses Diagnosis 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
--- OUTSIDE RECORDS SUMMARY | 2022-04-04 00:47 | XMS_ITS | Encounter Summary ---
:1965 Author Organization [facility] [place] [address] Care Team Providers Name Role Phone Anna Mullen MD Primary Care Provider Encounter Details Date Type Department Care Team Description 02/22/2016 Laboratory Lab 3L [facility] Pancreas replac ed by transplant; Appointment [facility] Need [place] [address] Social History Tobacco Use Types [...] P athologist Signature U Creatinine 58 mg/dL [facility] U Protein Ran <6 0 - 12 [facility] mg/dL [facility] Prot/Cre Ratio <0.[address] [facility] Specimen Anatomical Collection Method Collection Time Receive d Time (Source) Location / / Volume Laterality Urine specimen 02/22/2016 7:54 AM 016 8:00 (specimen) EDT AM EDT Resulting Agency Comment Spec In Lab Eriberto Melgar MD URINE ORDERABLES Performing Organization Address City/State/[place] [address] Urinalysis with reflex Culture (02/22/2016 7:54 AM EDT) [facility] Method Time Signature Glucose UA Negative Negative [facility] mg/dL [facility] Protein UA Negative Negative [facility] mg/dL [facility] Bilirubin UA Negative Negative [facility] mg/dL [facility] Comment: Clinical correlation required for positi ve Urine Bilirubin results as false positive may occur with some drugs and d rug related products. If a false positive is suspected a serum total bili sinha should be considered if clinically indicated. Urobilinogen UA Normal Normal mg/dL [facility] pH UA 6.0 5.0 - 8.0 [facility] Blood UA Negative Negative mg/dL [facility] Ketones UA Negative Negative mg/dL [facility] Nitrite UA Negative Negative [facility] Leukocytes UA Negative Negative [facility] Appearance UA Clear Clear [facility] Spec [place] UA 1.006 1.002 - 1.030 [facility] Color UA Yellow Yellow [facility] RBC UA Not Present 0 - 3 /HPF [facility] WBC UA 1 0 - 3 /HPF [facility] Culture Reflexed No [facility] Specimen Anatomical Collection Method Collection Time Receive d Time (Source) Location / / Volume Laterality Urine specimen 02/22/2016 7:54 AM 016 8:01 (specimen) EDT AM EDT Resulting Agency Comment Spec In Lab Eriberto Melgar MD URINE ORDERABLES Performing Organization Address City/State/ZIP Code Phon e Number [place] [id number] [address] Differential, Automated (02/22/2016 7:48 AM EDT) P athologist Signature Neutrophils % 48.5 % [facility] Neutr Abs (ANC) 3.32 1.50 - [facility] 6.30 [facility] x10(3)/[facility] LABORATORY Lymphocytes % 39.8 % [facility] Lymphocytes Abs 2.7 1.0 - 3.6 [facility] x10(3)/[facility] LABORATORY Monocytes % 9.2 % [facility] Monocyte Abs 0.6 0.2 - 1.0 [facility] x10(3)/[facility] LABORATORY Eosinophils % 1.9 % [facility] Eosinophils Abs 0.1 0.0 - 0.5 [facility] x10(3)/[facility] LABORATORY Basophils % 0.3 % [facility] Basophils Abs 0.0 0.0 - 0.2 [facility] x10(3)/[facility] LABORATORY Immature Gran % 0.30 % [facility] Comment: Immature granulocytes(IG's)percentage an d absolute count will include metamyelocytes, myelocytes, and promyelo cytes. Blood smears from CBCs yielding IG's will be scanned manually for concor dance. If this scan disagrees with the automated IG or if promyelocytes are not ed, a manual differential will be performed. Kym Gran Abs 0.02 0.00 - 0.05 x10(3)/[facility] Specimen Anatomical Collection Method Collection Time Receive d Time (Source) Location / / Volume Laterality Blood specimen 02/22/2016 7:48 AM 016 8:00 (specimen) EDT AM EDT Resulting Agency Comment Spec In Lab Eriberto Melgar MD HEMATOLOGY ORDERABLES Performing Organization Address City/State/[place] [address] (ABNORMAL) Hemogram (02/22/2016 7:48 AM EDT) P athologist Signature WBC 6.8 4.0 - 10.0 [facility] x10(3)/[facility] LABORATORY RBC 4.77 4.63 - [facility] 6.08 [facility] x10(6)/[facility] LABORATORY Hemoglobin 13.9 13.7 - [facility] 17.5 gm/dL [facility] Hematocrit 39.8 (L) 40.0 - [facility] 51.0 % [facility] MCV 83.4 79.0 - [facility] 92.0 [facility] LABORATORY MCH 29.1 25.6 - [facility] 32.2 pg [facility] MCHC 34.9 32.0 - [facility] 36.5 gm/dL [facility] Platelets 253 145 - 370 [facility] x10(3)/[facility] LABORATORY RDWSD 37.9 35.0 - [facility] 46.0 [facility] LABORATORY RDWCV 12.6 10.9 - [facility] 14.4 % [facility] MPV 10.2 9.0 - 12.0 [facility] LABOR[facility]ORY Specimen Anatomical Collection Method Collection Time Receive d Time (Source) Location / / Volume Laterality Blood specimen 02/22/2016 7:48 AM 016 8:00 (specimen) EDT AM EDT Resulting Agency Comment Spec In Lab Eriberto Melgar MD HEMATOLOGY ORDERABLES Performing Organization Address City/State/ZIP Code Phon e Number [address] Amylase (02/22/2016 7:48 AM EDT) P athologist Signature Amylase 52 28 - 100 [facility] unit/L [facility] Specimen Anatomical Collection Method Collection Time Receive d Time (Source) Location / / Volume Laterality Blood specimen 02/22/2016 7:48 AM 016 8:00 (specimen) EDT AM EDT Resulting Agency Comment Spec In Lab Eriberto Melgar MD CHEMISTRY ORDERABLES Performing Organization Address City/[facility]/ZIP Code Phon e Number [address] Lipase (02/22/2016 7:48 AM EDT) athologist Signature Lipase 21 0 - 60 [facility] unit/L [facility] Specimen Anatomical Collection Method Collection Time Receive d Time (Source) Location / / Volume Laterality Blood specimen 02/22/2016 7:48 AM 016 8:00 (specimen) EDT AM EDT Resulting Agency Comment Spec In Lab Eriberto Melgar MD CHEMISTRY ORDERABLES Performing Organization Address City/State/[place] [address] (ABNORMAL) Comprehensive metabolic panel (non-fasting) (02/22/2016 7:48 AM EDT) athologist Signature Glucose Lvl 114 65 - 199 [facility] mg/dL [facility] Comment: Diabetes: >=200 mg/dL plus symp toms BUN 15 10 - 20 mg/dL [facility] Creatinine 1.04 0.80 - 1.50 mg/dL [facility] Comment: Please note that the pediatric reference intervals supplied above were not validated at [facility]. Results from pediatri c patients should be interpreted in conjunction to the patient's age, height and muscle mass. Sodium 131 (L) 135 - 145 mmol/L [facility] Potassium 5.0 3.5 - 5.0 mmol/L [facility] Comment: Please note: ??Patients with WBC >100,00 0 may have falsely elevated Potassium levels. ??For accurate Potassium quantif ication in these patients send serum separator tube (gold top) for subsequent determinations. ??Contact the Clinical Chemistry Laboratory if there are any qu estions. Chloride 93 (L) 98 - 107 mmol/L [facility] CO2 26 22 - 31 mmol/L [facility] Anion Gap 12 5 - 15 mmol/L [facility] Calcium 9.5 8.5 - 10.5 mg/dL [facility] Total Protein 7.6 6.1 - 8.0 gm/dL [facility] Albumin 4.7 3.2 - 5.2 gm/dL [facility] AST 33 0 - 39 unit/L [facility] ALT 29 0 - 55 unit/L [facility] Alk Phos 119 40 - 120 unit/L [facility] Total Bilirubin 1.2 0.2 - 1.3 mg/dL [facility] Bili, Direct 0.2 0.0 - 0.3 mg/dL [facility] Estimated GFR >60 >=60 [facility] Comment: This estimated GFR (eGFR) [...] the following links into your internet browser. [email or web address] Specimen Anatomical Collection Method Collection Time Receive d Time (Source) Location / / Volume Laterality Blood specimen 02/22/2016 7:48 AM 016 8:00 (specimen) EDT AM EDT Resulting Agency Comment Spec In Lab Eriberto Melgar MD CHEMISTRY ORDERABLES Performing Organization Address City/[facility]/[place] [address] Magnesium (02/22/2016 7:48 AM EDT) P athologist Signature Magnesium 0.72 0.69 - 1.07 [facility] mmol/L [facility] Specimen Anatomical Collection Method Collection Time Receive d Time (Source) Location / / Volume Laterality Blood specimen 02/22/2016 7:48 AM 016 8:00 (specimen) EDT AM EDT Resulting Agency Comment Spec In Lab Eriberto Melgar MD CHEMISTRY ORDERABLES Performing Organization Address City/[facility]/ZIP Code Phon e Number [id number] Phosphorus (02/22/2016 7:48 AM EDT) athologist Signature Phosphorus 3.3 2.5 - 4.5 [facility] Specimen Anatomical Collection Method Collection Time Receive d Time (Source) Location / / Volume Laterality Blood specimen 02/22/2016 7:48 AM 016 8:00 (specimen) EDT AM EDT Resulting Agency Comment Spec In Lab Eriberto Melgar MD CHEMISTRY ORDERABLES Performing Organization Address City/State/ZIP Code Phon e Number [address] Uric acid (02/22/2016 7:48 AM EDT) athologist Signature Uric Acid 6.4 3.5 - 8.5 [facility] mg/dL [facility] Specimen Anatomical Collection Method Collection Time Receive d Time (Source) Location / / Volume Laterality Blood specimen 02/22/2016 7:48 AM 016 8:00 (specimen) EDT AM EDT Resulting Agency Comment Spec In Lab Eriberto Melgar MD CHEMISTRY ORDERABLES Performing Organization Address City/State/ZIP Code Phon e Number [address] Tacrolimus level (02/22/2016 7:48 AM EDT) athologist Signature Tacrolimus Lvl 6.5 ng/mL [facility] Comment: Trough therapeutic: 5-15 ng/mL Specimen Anatomical Collection Method Collection Time Receive d Time (Source) Location / / Volume Laterality Blood specimen 02/22/2016 7:48 AM 016 (specimen) EDT 11:50 AM EDT Resulting Agency Comment Spec In Lab Eriberto Melgar MD CHEMISTRY ORDERABLES Performing Organization Address City/State/[place] [address] Reticulocyte Count (02/22/2016 7:48 AM EDT) athologist Signature Retic Ct % 1.0 0.5 - 2.4 [facility] Retic Ct Abs 0.050 0.027 - [facility] 0.095 [facility] x10(6)/[facility] LABORATORY Immature Retic% 3.4 2.3 - 15.9 [facility] Reticulated Hgb 30.1 28.5 - [facility] 38.9 [facility] LABORATORY Plat Immature % 2.1 0.0 - 7.4 [facility] Specimen Anatomical Collection Method Collection Time Receive d Time (Source) Location / / Volume Laterality Blood specimen 02/22/2016 7:48 AM 016 8:00 (specimen) EDT AM EDT Resulting Agency Comment Spec In Lab Eriberto Melgar MD HEMATOLOGY ORDERABLES Performing Organization Address City/[facility]/ZIP Code Phon e Number [address] Cholesterol, total (02/22/2016 7:48 AM EDT) P athologist Signature Chol, Total 135 <=199 mg/dL [facility] Comment: Recommendations of the NCEP Adult Treatm ent Panel for the following risk cutoff thresholds for the [place] populatio n: Desirable: <200 mg/dL Borderline High: 200-239 mg/dL High: > or = 240 mg/dL Specimen Anatomical Collection Method Collection Time Receive d Time (Source) Location / / Volume Laterality Blood specimen 02/22/2016 7:48 AM 016 8:00 (specimen) EDT AM EDT Resulting Agency Comment Spec In Lab Eriberto Melgar MD CHEMISTRY ORDERABLES Performing Organization Address City/[facility]/[place] [address] (ABNORMAL) Hemoglobin A1c (02/22/2016 7:48 AM EDT) Analysis Performed At Patho logist Time Signature Hemoglobin A1C 5.7 (H) 4.3 - 5.6 [facility] [...] Mellitus, Diabetes Care 2013; 36: Suppl. 1, U97-14 Est Avg Gluc 117 mg/dL [facility] Comment: eAG equivalents for HbA1c percentages: [...] [facility] website: [email or web address] WEATHERFORDadacalc Edinson GRISSOM, Nathaniel J, Ari R, et al. ??Tr anslating the A1C assay into estimated average glucose values. ??Diabetes Care 2008:31(8):3949-7824. 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
--- OUTSIDE RECORDS SUMMARY | 2022-04-04 00:47 | XMS_ITS | Encounter Summary ---
:1965 Author Organization [facility] Address [place] [id number] Care Team Providers Name Role Phone Anna Mullen MD Primary Care Provider Reason for Referral Diagnostic Test (Routine) - Specialty Diagnoses / Procedures Referred By Contact Refer red To Contact Radiology Diagnoses Abdominal pain of multiple sites Mauricio Gonsalez MD [facility] Rad Mri Procedures MRI Abdomen With/WO Contrast (GENERIC) MRI Abdomen With Contrast [facility] [place] [phone] [place] [address] Referral ID Status Reason Start Date Expiration Visits Visits Date Requested Authorized [id number] Specialty 08/29/2015 08/28/2016 1 1 Service Requested iagnostic Test (Routine) - Closed Specialty Diagnoses / Procedures Referred By Contact Refer red To Contact Radiology Diagnoses Abdominal pain of multiple sites Mauricio Gonsalez MD [facility] Rad Mri Procedures MRI Pelvis With/WO Contrast [facility] [place] [address] [place] [address] Referral ID Status Reason Start Date Expiration Date Visits V isits Requested Authorized [id number] Closed Specialty 08/29/2015 10/27/2015 1 1 Service Requested Reason for Visit Diagnostic Test (Routine) - Closed Specialty Diagnoses / Procedures Referred By Contact Refer red To Contact Radiology Diagnoses Abdominal pain of multiple sites Mauricio Gonsalez, [facility] Rad Mri Procedures MRI Pelvis With/WO Contrast [facility] [place] [address] [place] [address] Referral ID Status Reason Start Date Expiration Date Visits V isits Requested Authorized [id number] Closed Specialty 08/29/2015 10/27/2015 1 1 Service Requested Encounter Details Date Type Department Care Team Description 09/07/2015 Hospital En[place] [facility] [place]icio Gonsalez, Ab[facility] multiple sites [facility] [address] GASTROENTEROLOGY [phone] 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 Pancreatic allograft [...] CT abdomen pelvis from 014 FINDINGS: Pancreas: [place] pancreas is diffusely a trophic. Pancreatic allograft [...] CT abdomen pelvis from 014 FINDINGS: Pancreas: [place] pancreas is diffusely a trophic. Pancreatic allograft [...] CT abdomen pelvis from 014 FINDINGS: Pancreas: [place] pancreas is diffusely a trophic. Pancreatic allograft [...] Routine documented in this encounter Care Teams Mosaic Tile Maker Relationship Specialty Start Date End Date Anna Mullen MD PCP - General 12/03/10 [address] [place] [address] documented as of this encounter
--- OUTSIDE RECORDS SUMMARY | 2022-04-04 00:47 | XMS_ITS | Encounter Summary ---
:1965 Author Organization [facility] [place] [address] Care Team Providers Name Role Phone Anna Mullen MD Primary Care Provider Encounter Details Date Type Department Care Team Description 08/15/2015 Notes Only Endocrinology at [facility] [place] [address] Social History Tobacco Use Types Packs/Day [...] 08/15/2015 11:55 AM EST Request received from [facility] for insulin pump and testing supplies. 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 Faxed back to [facility] to contact patient/pcp. documented in this encounter Plan of Treatment Not on filedocumented as of this encounter Visit Diagnoses Not on filedocumented in this encounter Care Teams Director Industrial Relationship Specialty Start Date End Date Anna Mullen MD PCP - General 12/03/10 [address] [place] [address] documented as of this encounter
--- OUTSIDE RECORDS SUMMARY | 2022-04-04 00:47 | XMS_ITS | Encounter Summary ---
:1965 Author Organization [facility] [place] [address] Care Team Providers Name Role Phone Anna Mullen MD Primary Care Provider Encounter Details Date Type Department Care Team Description 07/22/2016 Abstract [place] [facility] [place] [address] Social History Tobacco Use Types Packs/Day [...] on filedocumented in this encounter Care Teams Stand Up Comedian Relationship Specialty Start Date End Date Anan Mullen MD PCP - General 12/03/10 [address] [place], [place] [address] documented as of this encounter
--- OUTSIDE RECORDS SUMMARY | 2022-04-04 00:47 | XMS_ITS | Encounter Summary ---
:1965 Author Organization [facility] [address] Care Team Providers Name Role Phone Anna Mullen MD Primary Care Provider Reason for Visit Auth/Cert - Closed Specialty Diagnoses / Procedures Referred By Contact Refer red To Contact Diagnoses N/V S/P PANCREATIC TRANSPLANT Procedures EMERGENCY IPI Referral ID Status Reason Start Date Expiration Date Visits Requ ested Visits Authorized [id number] Closed 1 1 Encounter Details Date Type Department Care Team Description 08/30/2015 Office Visit Solid Organ Leilani Keller, H/O pancre as Transplant at [facility] transplant [facility] [address] [place] [address] [place] [address] [phone] Social History Tobacco Use Types Packs/Day Years [...] ENDOSCOPY performed by CLAYTON BHAKTA at [facility] ENDOSCOPY ??? Pro upper gi endoscopy, biopsy 12/31/2011 UPPER GASTROINTESTINAL ENDOSCOPY,WITH BIOPSY SINGLE OR MULTIPLE performed by CLAYTON BHAKTA at [facility] ENDOSCOPY ??? Shoulder surgery ??? Carpal tunnel release ??? Appendectomy ??? Pro unlisted procedure, musculoskeletal system, general 10 years carpel tunnel ??? 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 Pro transplant allograft pancreas 08/28/2013 @PANCREATIC TRANSPLANT performed by Leilani Keller MD at [facility] MAIN OR ??? Pro transplant, prep donor pancreas 08/28/2013 @PREPARATION CADAVERIC PANCREAS, STANDARD performed by Leilani Keller MD at [facility] MAIN OR ??? Pro colonoscopy, diagnostic N/A 10/24/2014 COLONOSCOPY, DIAGNOSTIC performed by Anna Rapp MD at [facility] ENDOSCOPY ??? 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 Solid Organ Transplant [phone] (Pager: [phone]) documented in this encounter Plan of Treatment [...] (ABNORMAL) Differential, Automated (08/30/2015 11:42 AM EST) [facility] gist Method Time Signature Neutrophils % 69.9 [...] Keller MD HEMATOLOGY ORDERABLES Performing Organization Address City/[facility]/[place] [address] CERNER MILLENNIUM Hemogram (08/30/2015 [...] Keller MD HEMATOLOGY ORDERABLES Performing Organization Address City/[facility]/[place] [address] CERNER MILLENNIUM Uric acid (08/30/2015 11:42 AM EST) P athologist Signature Uric Acid 6.7 3.5 - 8.5 CERNER mg/dL MILLENNIUM Specimen Anatomical Collection Method Collection Time Receive d Time (Source) Location / / Volume Laterality Blood specimen 08/30/2015 11:42 5 (specimen) AM EST 12:13 PM EST Resulting Agency Comment Spec In Lab Leilani Keller MD CHEMISTRY ORDERABLES Performing Organization Address City/[facility]/ZIP Code Phon e Number [address] CERNER MILLENNIUM (ABNORMAL) Phosphorus (08/30/2015 11:42 AM EST) P athologist Signature Phosphorus 2.0 (L) 2.5 - 4.5 CERNER mg/dL MILLENNIUM Specimen Anatomical Collection Method Collection Time Receive d Time (Source) Location / / Volume Laterality Blood specimen 08/30/2015 11:42 5 (specimen) AM EST 12:13 PM EST Resulting Agency Comment Spec In Lab Leilani Keller MD CHEMISTRY ORDERABLES Performing Organization Address City/[facility]/ZIP Code Phon e Number [address] CERNER MILLENNIUM Magnesium (08/30/2015 [...] Organization Address City/State/ZIP Code Phon e Number [address] CERNER MILLENNIUM Lipase (08/30/2015 [...] Organization Address City/State/[place] [address] CERNER MILLENNIUM (ABNORMAL) Comprehensive [...] the following links into your internet browser. [email or web address] Specimen Anatomical Collection Method Collection Time Receive d Time (Source) Location / / Volume Laterality Blood specimen 08/30/2015 11:42 5 (specimen) AM EST 12:13 PM EST Resulting Agency Comment Spec In Lab Leilani Keller MD CHEMISTRY ORDERABLES Performing Organization Address City/[facility]/ZIP Code Phon e Number [address] CERNER MILLENNIUM Amylase (08/30/2015 11:42 AM EST) P athologist Signature Amylase 66 28 - 100 CERNER unit/L MILLENNIUM Specimen Anatomical Collection Method Collection Time Receive d Time (Source) Location / / Volume Laterality Blood specimen 08/30/2015 11:42 5 (specimen) AM EST 12:13 PM EST Resulting Agency Comment Spec In Lab Leilani Keller MD CHEMISTRY ORDERABLES Performing Organization Address City/[facility] Phon e Number [address] CERNER MILLENNIUM documented in [...] Routine documented in this encounter Care Teams Pulp Mill Team Leader Relationship Specialty Start Date End Date Anna Mullen MD PCP - General 12/03/10 [address] [place] [address] documented as of this encounter
--- OUTSIDE RECORDS SUMMARY | 2022-04-04 00:47 | XMS_ITS | Encounter Summary ---
:1965 Author Organization [facility] [place] [address] Care Team Providers Name Role Phone Anna Mullen MD Primary Care Provider Reason for Referral Diagnostic Test (Routine) - Specialty Diagnoses / Procedures Referred By Contact Refer red To Contact Radiology Diagnoses Abdominal pain of multiple sites Mauricio Gonsalez MD [facility] Rad Mri Procedures MRI Abdomen With/WO Contrast (GENERIC) MRI Abdomen With Contrast [facility] [place] [address] [place] [address] Referral ID Status Reason Start Date Expiration Visits Visits Date Requested Authorized [id number] Specialty 08/29/2015 08/28/2016 1 1 Service Requested Encounter Details Date Type Department Care Team Description 08/23/2015 Orders Only Gastro[place]ology [place] [facility] Mauricio Gonsalez, Abdominal pain of [facility] [place] [address] [facility] [phone] [facility] [place] [address] Social History Tobacco Use Types Packs/Day Years [...] CT abdomen pelvis from 014 FINDINGS: Pancreas: [place] pancreas is diffusely a trophic. Pancreatic allograft [...] CT abdomen pelvis from 014 FINDINGS: Pancreas: [place] pancreas is diffusely a trophic. Pancreatic allograft [...] site documented in this encounter Care Teams Recorder Of Deeds Relationship Specialty Start Date End Date Anna Mullen MD PCP - General 12/03/10 [address] [place] [address] documented as of this encounter
--- OUTSIDE RECORDS SUMMARY | 2022-04-04 00:47 | XMS_ITS | Encounter Summary ---
:1965 Author Organization [facility] [place] [address] Care Team Providers Name Role Phone Meaghan Mullen MD Primary Care Provider Reason for Visit Auth/Cert - Closed Specialty Diagnoses / Procedures Referred By Contact Refer red To Contact Diagnoses N/V S/P PANCREATIC TRANSPLANT Procedures EMERGENCY IPI Referral ID Status Reason Start Date Expiration Date Visits Requ ested Visits Authorized [id number] Closed 1 1 Encounter Details Date Type Department Care Team Description 08/30/2015 - Hospital Encounter 4 [facility] Rafael Leonardo Keller, 09/01/2015 [facility] [address] [place] [address] [place] [address] [phone] Social History Tobacco Use Types Packs/Day Years [...] On weekends or after office hours: Call [phone] and ask the air control electronics operator to page the General Surgery Resident senior executive compensation analyst. Future Appointments Provider Department Dept Phone 09/07/2015 6:50 AM [facility] MR NURSE [facility] [phone] 09/07/2015 7:50 AM [facility] MR 1 [facility] [phone] 02/22/2016 8:00 AM LAB, THREE L [facility] Lab 3L [phone] 02/22/2016 9:00 AM Eriberto Melgar MD Transplant [phone] Signed: Robert Bhagat MD General Surgery, PGY2 Pager [phone] Primary Agustina Physician: MEAGHAN MULLEN MD [address] / [place] [address] I reviewed all of the above findings and assessment of Dr. Bhagat and formulated the recommendations which accurately reflect mine. 30 Min., >50% in direct face to face evp general counsel. No diarrheal stools, no pain. Ready for [...] On weekends or after office hours: Call [phone] and ask the air control electronics operator to page the General Surgery Resident senior executive compensation analyst. documented in this encounter Medications at Time [...] out given recent EGD negative for ulcers. Douglas to most likely be neuropathic vs gastroparesis [...] Daily Progress Note ID Richard Hsu 1965 [id number] Events: - no acute events - [...] Min., >50% in direct face to face evp general counsel. I spoke to him re: diet dexter. [...] NS at 100, he was attached to [employer] and ordered his meal. Will monitor closely. [...] GI ENDOSCOPY performed by CLAYTON BHAKTA at [facility] ENDOSCOPY ??? Pro upper gi endoscopy, biopsy 12/31/2011 UPPER GASTROINTESTINAL ENDOSCOPY,WITH BIOPSY SINGLE OR MULTIPLE performed by CLAYTON BHAKTA at [facility] ENDOSCOPY ??? Shoulder surgery ??? Carpal tunnel release ??? Appendectomy ??? Pro unlisted procedure, musculoskeletal system, general 10 years carpel tunnel ??? 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 Pro transplant allograft pancreas 08/28/2013 @PANCREATIC TRANSPLANT performed by Iraj Keller MD at [facility] MAIN OR ??? Pro transplant, prep donor pancreas 08/28/2013 @PREPARATION CADAVERIC PANCREAS, STANDARD performed by Iraj Keller MD at [facility] MAIN OR ??? Pro colonoscopy, diagnostic N/A 10/24/2014 COLONOSCOPY, DIAGNOSTIC performed by Meaghan Rapp MD at [facility] ENDOSCOPY ??? Pro upper gi endoscopy, biopsy N/A 08/15/2015 EGD WITH BIOPSY performed by Clayton Bhakta MD at [facility] ENDOSCOPY ALL: Allergies Allergen Reactions ??? 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 Results from pediatri c patients should be [...] the following links into your internet browser. [email or web address] Specimen Anatomical Collection Method Collection Time Receive d Time (Source) Location / / Volume Laterality Blood specimen 09/01/2015 5:21 AM 016 5:29 (specimen) EST AM EST Resulting Agency Comment Spec In Lab Iraj Keller MD CHEMISTRY ORDERABLES Performing Organization Address City/[facility]/ZIP Code Phon e Number [address] CERNER MILLENNIUM Lipase (09/01/2015 5:21 AM EST) P athologist Signature Lipase 19 0 - 60 CERNER unit/L MILLENNIUM Specimen Anatomical Collection Method Collection Time Receive d Time (Source) Location / / Volume Laterality Blood specimen 09/01/2015 5:21 AM 016 5:29 (specimen) EST AM EST Resulting Agency Comment Spec In Lab Iraj Keller MD CHEMISTRY ORDERABLES Performing Organization Address City/[facility] Phon e Number [address] CERNER MILLENNIUM Amylase (09/01/2015 5:21 AM EST) athologist Signature Amylase 48 28 - 100 CERNER unit/L MILLENNIUM Specimen Anatomical Collection Method Collection Time Receive d Time (Source) Location / / Volume Laterality Blood specimen 09/01/2015 5:21 AM 016 5:29 (specimen) EST AM EST Resulting Agency Comment Spec In Lab Iraj Keller MD CHEMISTRY ORDERABLES Performing Organization Address City/[facility] Phon e Number [address] CERNER MILLENNIUM Differential, Automated [...] Organization Address City/State/[place] [address] CERNER MILLENNIUM (ABNORMAL) Hemogram [...] Organization Address City/State/[place] [address] CERNER MILLENNIUM (ABNORMAL) Basic [...] above were not validated at [facility]. Results from pediatri c patients should be [...] the following links into your internet browser. [email or web address] Specimen Anatomical Collection Method Collection Time Receive d Time (Source) Location / / Volume Laterality Blood specimen 08/31/2015 6:42 AM 016 6:49 (specimen) EST AM EST Resulting Agency Comment Spec In Lab Iraj Keller MD CHEMISTRY ORDERABLES Performing Organization Address City/[facility]/ZIP Code Phon e Number [address] CERNER MILLENNIUM Lipase (08/31/2015 6:42 AM EST) P athologist Signature Lipase 20 0 - 60 CERNER unit/L MILLENNIUM Specimen Anatomical Collection Method Collection Time Receive d Time (Source) Location / / Volume Laterality Blood specimen 08/31/2015 6:42 AM 016 6:49 (specimen) EST AM EST Resulting Agency Comment Spec In Lab Iraj Keller MD CHEMISTRY ORDERABLES Performing Organization Address City/[facility]/ZIP Code Phon e Number [address] CERNER MILLENNIUM Amylase (08/31/2015 6:42 AM EST) P athologist Signature Amylase 47 28 - 100 CERNER unit/L MILLENNIUM Specimen Anatomical Collection Method Collection Time Receive d Time (Source) Location / / Volume Laterality Blood specimen 08/31/2015 6:42 AM 016 6:49 (specimen) EST AM EST Resulting Agency Comment Spec In Lab Iraj Keller MD CHEMISTRY ORDERABLES Performing Organization Address City/[facility]/ZIP Code Phon e Number [address] CERNER MILLENNIUM Cryptosporidium Oocyst Antigen (08/30/2015 7:22 PM EST) [facility] gist Method Time Signature Cryptosporidium Negative Negative CERNER Screen MILLENNIUM Specimen Anatomical Collection Method Collection Time Receive d Time (Source) Location / / Volume Laterality Stool specimen Stool / Unknown 08/30/2015 7:22 PM 08/02 7:22 (specimen) EST PM EST Resulting Agency Comment Spec In Lab Iraj Keller MD MICROBIOLOGY - GENERAL ORDER ERICA Performing Organization Address City/[facility]/ZIP Code Phon e Number [address] CERNER MILLENNIUM Giardia antigen (08/30/2015 7:22 PM EST) Analysis Performed At [facility] Time Signature Giardia Screen Negative Negative CERNER [...] - GENERAL ORDER ERICA Performing Organization Address City/[facility]/ZIP Code Phon e Number [address] CERNER MILLENNIUM Full Ova and Parasites Exam (08/30/2015 6:55 PM EST) [facility] [employer] Method Time Signature Ova & No ova [...] - GENERAL ORDER ERICA Performing Organization Address City/[facility]/ZIP Code Phon e Number [address] CERNER MILLENNIUM Norovirus Antigen (08/30/2015 4:07 PM EST) [facility] Method Time Signature Norovirus EIA NOT DETECTED CERNER MILLENNIUM Comment: A negative result does not exclude norov irus infection. Test Performed by: [place], [employer]. [id number] [place] [address] Specimen Anatomical Collection Method Collection Time Receive d Time (Source) Location / / Volume Laterality Stool specimen 08/30/2015 4:07 PM 016 9:54 (specimen) EST AM EST Resulting Agency Comment Spec In Lab Iraj Keller MD BODY FLUIDS AND STOOLS ORDER ERICA Performing Organization Address City/[facility]/ZIP Code Phon e Number [address] [facility] C. Difficile Screen (08/30/2015 4:06 PM EST) Analysis Performed At [facility] Time Signature C Diff Screen Negative Negative [facility] Specimen Anatomical Collection Method Collection Time Receive d Time (Source) Location / / Volume Laterality Stool specimen 08/30/2015 4:06 PM 015 4:27 (specimen) EST PM EST Resulting Agency Comment Spec In Lab Iraj Keller MD MICROBIOLOGY - GENERAL ORDER ERICA Performing Organization Address City/[facility] Phon e Number [address] [facility] documented in this encounter Visit [...] 1725 (Give n - Provider: Rhonda Almanza, MIGUELITO) 0835 (Given - Provider: Rhonda Almanza RN) [...] (CANCELED) 1800 (Not Given - Provider: Rhonda Almanza RN - Reason: Patient/family refused) 0834 (Given [...] 50 mg (CANCELED) 0017 (Given - Provider: Yomaria Meehan, MIGUELITO)2031 (Given - Provider: Dimple Anderson [...] Routine documented in this encounter Care Teams Sales Representative Printing Supplies Relationship Specialty Start Date End Date Meaghan Mullen MD PCP - General 12/03/10 [address] [place] [address] documented as of this encounter
--- OUTSIDE RECORDS SUMMARY | 2022-04-04 00:47 | XMS_ITS | Encounter Summary ---
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; Transplant at [facility] [place] Arlyn Need for prophylactic immunotherapy; [facility] Aft ercare following organ transplant [place] [address] [place] [address] [phone] Social History Tobacco Use Types Packs/Day Years [...] Melgar MD - 08/22/2015 10:25 AM EST [facility] Transplant Nephrology Follow Up Reese Hsu [id number] Transplant ID: Date: 08/22/2015 Patient: Reees Hsu Transplant Date: 08/28/13 Organ(s) Pancreas [place] organ diagnosis: Diabetes Mellitus - Type I [...] up. He did undergo spine surgery at [facility] which seemed to work initially but [...] Appearance UA Latest Range: Clear Clear Spec [place] UA Latest Range: 1.002-1.030 1.009 pH UA [...] Talia Garcia MD Nephrology fellow Pager # [phone] I reviewed all of the above findings and assessment of Dr. Garcia and formulated the recommendations which accurately reflect mine. 30 Min., >50% in direct face to face job placement counselor. documented in this encounter Plan of Treatment Not on filedocumented as of this encounter Results (ABNORMAL) Hemoglobin A1c (08/22/2015 9:42 AM EST) Analysis Performed At [facility] Time Signature Hemoglobin A1C 5.8 [...] 36: Suppl. 1, S67-75 Est Avg Gluc 120 mg/dL CERNER MILLENNIUM [...] are available on [facility] website: http://Teedot/DHMCadacalc Edinson GRISSOM, Nathaniel J, Ari R, et al. ??Tr anslating the A1C assay into estimated average glucose values. ??Diabetes Care 2008:31(8):0044-4137. Specimen Anatomical Collection Method Collection Time Receive d Time (Source) Location / / Volume Laterality Blood specimen 08/22/2015 9:42 AM 015 9:48 (specimen) EST AM EST Resulting Agency Comment Spec In Lab Eriberto Melgar MD CHEMISTRY ORDERABLES Performing Organization Address City/[facility]/ZIP Code Phon e Number [address] [facility] Lavender Tube HOLD (08/22/2015 9:42 AM EST) Patholo gist Method Time Signature Lavender Hold Sample in [facility] Specimen Anatomical Collection Method Collection Time Receive d Time (Source) Location / / Volume Laterality Blood specimen 08/22/2015 9:42 AM 015 9:48 (specimen) EST AM EST Eriberto Melgar MD HEMATOLOGY ORDERABLES Performing Organization Address City/[facility] Code Phon e Number [address] [facility] Gold Tube HOLD (08/22/2015 9:42 AM EST) P athologist Signature Gold Hold Sample in [facility] Specimen Anatomical Collection Method Collection Time Receive d Time (Source) Location / / Volume Laterality Blood specimen 08/22/2015 9:42 AM 015 9:48 (specimen) EST AM EST Eriberto Melgar MD CHEMISTRY ORDERABLES Performing Organization Address City/[facility] Code Phon e Number [address] [facility] (ABNORMAL) VIT D Total Evaluation (08/22/2015 9:42 AM EST) P athologist Signature 25-OH Vit D 24 (L) 30 - 100 [facility] Total ng/mL [facility] Comment: Deficient <10 ng/mL Insufficient 10 to 29 ng/mL Sufficient 30 to 100 ng/mL Potential Intoxication >100 ng/mL According to the [place] National Osteoporosi s Foundation, Vitamin D concentrations >30 ng/mL are sufficient to protect bone health. ??The National Kidney Foundation has similarly stated that pat ients with Vitamin D concentrations <30ng/mL should be considered to be insu fficient or deficient. http://Teedot/DHnatlkidneyfoundat ion http://Teedot/DHVitD The [employer] i[employer] Vitamin D Immunoassay detec [...] Address City/State/ZIP Code Phon e Number [address] [facility] MILLENNIUM 1,25-dihydroxycholecalciferol (08/22/2015 9:42 AM EST) athologist Signature Vit D 1,25 49 18 - 64 CERNER pg/mL [facility] Comment: Test Performed by: [place] [id number] Pastrycook: Dung Buenrostro II, M.D., Ph.D. Specimen Anatomical Collection Method Collection Time Receive d Time (Source) Location / / Volume Laterality Blood specimen 08/22/2015 9:42 AM 015 (specimen) EST 11:00 AM EST Resulting Agency Comment Spec In Lab Eriberto Melgar MD CHEMISTRY ORDERABLES Performing Organization Address City/State/ZIP [facility] [place] [address] CERNER MILLENNIUM PTH (08/22/2015 9:42 AM EST) athologist Signature PTH 56 15 - 65 CERNER pg/mL MILLENNIUM Specimen Anatomical Collection Method Collection Time Receive d Time (Source) Location / / Volume Laterality Blood specimen 08/22/2015 9:42 AM 015 9:48 (specimen) EST AM EST Resulting Agency Comment Spec In Lab Eriberto Melgar MD CHEMISTRY ORDERABLES Performing Organization Address City/[facility]/[place] [address] CERNER MILLENNIUM Lipase (08/22/2015 9:42 AM EST) P athologist Signature Lipase 18 0 - 60 CERNER unit/L MILLENNIUM Specimen Anatomical Collection Method Collection Time Receive d Time (Source) Location / / Volume Laterality Blood specimen 08/22/2015 9:42 AM 015 9:48 (specimen) EST AM EST Resulting Agency Comment Spec In Lab Eriberto Melgar MD CHEMISTRY ORDERABLES Performing Organization Address City/[facility]/ZIP Code Phon e Number [address] CERNER MILLENNIUM Amylase (08/22/2015 9:42 AM EST) P athologist Signature Amylase 58 28 - 100 CERNER unit/L MILLENNIUM Specimen Anatomical Collection Method Collection Time Receive d Time (Source) Location / / Volume Laterality Blood specimen 08/22/2015 9:42 AM 015 9:48 (specimen) EST AM EST Resulting Agency Comment Spec In Lab Eriberto Melgar MD CHEMISTRY ORDERABLES Performing Organization Address City/[facility] Phon e Number [address] CERNER MILLENNIUM Tacrolimus level [...] Organization Address City/State/[place] [address] CERNER MILLENNIUM Uric acid (08/22/2015 9:42 AM EST) P athologist Signature Uric Acid 6.0 3.5 - 8.5 CERNER mg/dL MILLENNIUM Specimen Anatomical Collection Method Collection Time Receive d Time (Source) Location / / Volume Laterality Blood specimen 08/22/2015 9:42 AM 015 9:48 (specimen) EST AM EST Resulting Agency Comment Spec In Lab Eriberto Melgar MD CHEMISTRY ORDERABLES Performing Organization Address City/[facility]/ZIP Code Phon e Number [address] CERNER MILLENNIUM Phosphorus (08/22/2015 9:42 AM EST) P athologist Signature Phosphorus 3.2 2.5 - 4.5 CERNER mg/dL MILLENNIUM Specimen Anatomical Collection Method Collection Time Receive d Time (Source) Location / / Volume Laterality Blood specimen 08/22/2015 9:42 AM 015 9:48 (specimen) EST AM EST Resulting Agency Comment Spec In Lab Eriberto Melgar MD CHEMISTRY ORDERABLES Performing Organization Address City/[facility]/ZIP Code Phon e Number [address] CERNER MILLENNIUM (ABNORMAL) Magnesium [...] Organization Address City/State/[place] [address] CERNER MILLENNIUM Lipid panel (fasting) (08/22/2015 9:42 AM EST) P athologist Signature Chol, Total 118 <=199 mg/dL CERNER MILLENNIUM Comment: Recommendations of the NCEP Adult Treatm ent Panel for the following risk cutoff thresholds for the [place] populatio n: Desirable: <200 mg/dL Borderline High: 200-239 mg/dL High: > or = 240 mg/dL Triglycerides 59 <=149 mg/dL CERNER MILLENN IUM Comment: Reference Range: Normal triglycerides: ??<150 mg/dL Borderline high: ??150-199 mg/dL High: ??200-499 mg/dL Very high: ??>uc=002 mg/dL MARQUEZ 2001; 285(19):5780-1997 HDL 45 >=40 mg/dL CERNER MILLENNIUM Comment: Reference range: ??Low HDL: ?? < 40 mg/dL ??Normal: ?40-60 mg/dL ??Desirable: > 60 mg/dL MARQUEZ 2001; 285(19):7356-6409 LDL Cholesterol 61 <=99 mg/dL CERNER LALA NIUM Comment: Reference range: ?? Optimal: ?<100 mg/dL ?? Near Optimal/Above Optimal: ?? 100-1 29 mg/dL ?? Borderline high: ?130-159 mg/dL ?? High: ? 160-189 mg/dL ?? Very high: ?>zb=146 mg/dL MARQUEZ 2001: 285(19):4546-3615 Chol/HDL Ratio 2.6 ratio CERNER MILLENNI UM Comment: A Cholesterol to HDL ratio below 4:1 is desirable. ??Studies suggest that increased CAD risk occurs at ratios abov e 5 for females and above 6 for men. ? [place] Heart Association ??(htt p://www.americanheart.org) ? Joy Int Med, 1994; 121:641 ? AM J Med, 1998; 105(1A):48S Specimen Anatomical Collection Method Collection Time Receive d Time (Source) Location / / Volume Laterality Blood specimen 08/22/2015 9:42 AM 015 9:48 (specimen) EST AM EST Resulting Agency Comment Spec In Lab Eriberto Melgar MD CHEMISTRY ORDERABLES Performing Organization Address [facility] [place] [address] CERNER MILLENNIUM Reticulocyte Count [...] Melgar MD HEMATOLOGY ORDERABLES Performing Organization Address City/[facility] Code [facility] [place] [address] CERNER MILLENNIUM CMP w/fasting [...] of Diabetes Mellitus, Position Statement from the [place] Diabetes Association. ??Diabete s Care, Volume 33, [...] the following links into your internet browser. http://Teedot/DHnkdep http://Teedot/DHMCnkf Specimen Anatomical Collection Method Collection Time Receive d Time (Source) Location / / Volume Laterality Blood specimen 08/22/2015 9:42 AM 015 9:48 (specimen) EST AM EST Resulting Agency Comment Spec In Lab Eriberto Melgar MD CHEMISTRY ORDERABLES Performing Organization Address City/[facility]/ZIP Code Phon e Number [address] CERNER MILLENNIUM Protein/Creatinine Ratio, [...] Melgar MD URINE ORDERABLES Performing Organization Address City/[facility]/ZIP Code Phon e Number [address] CERNER MILLENNIUM Phosphorus, urine, random (08/22/2015 9:41 AM EST) P athologist Signature U Phosphorus 12.0 mg/dL CERNER MILLENNIUM Specimen Anatomical Collection Method Collection Time Receive d Time (Source) Location / / Volume Laterality Urine specimen 08/22/2015 9:41 AM 015 9:48 (specimen) EST AM EST Resulting Agency Comment Spec In Lab Eriberto Melgar MD URINE ORDERABLES Performing Organization Address City/[facility] Phon e Number [address] CERNER MILLENNIUM Calcium Creatinine Ratio, random urine (08/22/2015 9:41 AM EST) P athologist Signature U Calcium 2.6 mg/dL CERNER MILLENNIUM U Creatinine 51 mg/dL [facility] Ca/Cre Ratio 0.05 ratio [facility] Specimen Anatomical Collection Method Collection Time Receive d Time (Source) Location / / Volume Laterality Urine specimen 08/22/2015 9:41 AM 015 9:48 (specimen) EST AM EST Resulting Agency Comment Spec In Lab Eriberto Melgar MD URINE ORDERABLES Performing Organization Address City/[facility]/ZIP Code Phon e Number [address] [facility] Creatinine, urine, random (08/22/2015 9:41 AM EST) athologist Signature U Creatinine 51 mg/[facility] Specimen Anatomical Collection Method Collection Time Receive d Time (Source) Location / / Volume Laterality Urine specimen 08/22/2015 9:41 AM 015 9:48 (specimen) EST AM EST Resulting Agency Comment Spec In Lab Eriberto Melgar MD URINE ORDERABLES Performing Organization Address City/[facility] [place] [address] [facility] Urinalysis with reflex Culture (08/22/2015 9:41 AM EST) [facility] Method Time Signature Glucose UA Negative [...] clinically indicated. Urobilinogen UA Normal Normal mg/dL [facility] MILL ENNIUM pH UA 6.0 5.0 - 8.0 [facility] MILL[facility]UM Blood UA Negative Negative mg/dL CERNER MILLENNI UM Ketones UA Negative Negative mg/dL [facility] MILLENN IUM Nitrite UA Negative Negative CERNER MILLENNIUM Leukocytes UA Negative Negative mcL [facility] LALA NIUM Appearance UA Clear Clear CERNER MILLENNIU M Spec [place] UA 1.009 1.002 - 1.030 [facility] MIL LENNIUM Color UA Straw Yellow CERNER [...] Address City/State/ZIP Code Phon e Number [address] CERNER MILLENNIUM Uric acid, [...] Melgar MD URINE ORDERABLES Performing Organization Address City/[facility]/ZIP Code Phon e Number [address] CERNER MILLENNIUM Phosphorus, urine, [...] Address City/State/ZIP Code Phon e Number [address] CERNER MILLENNIUM Calcium, urine, [...] Address City/State/ZIP Code Phon e Number [address] CERNER MILLENNIUM (ABNORMAL) Creatinine, urine, 24 hour (08/22/2015 5:00 AM EST) Analysis Performed At [facility] logist Time Signature U24 Creat Conc 54 [...] Organization Address City/State/[place] [address] CERNER MILLENNIUM (ABNORMAL) Creatinine [...] Address City/State/ZIP Code Phon e Number [address] CERNER MILLENNIUM (ABNORMAL) Protein, [...] Address City/State/ZIP Code Phon e Number [address] CERNER MILLENNIUM documented in this encounter Visit Diagnoses Diagnosis 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
--- OUTSIDE RECORDS SUMMARY | 2022-04-04 00:47 | XMS_ITS | Encounter Summary ---
:1965 Author Organization [place] [address] Care Team Providers Name Role Phone Anna Mullen MD Primary Care Provider Reason for Visit Reason Comments Medication Refill Encounter Details Date Type Department Care Team Description 02/29/2016 Refill Solid [facility] [place] [address] [place] [address] [phone] (Wo rk) Social History Tobacco Use Types [...] on filedocumented in this encounter Care Teams Spike Maker Relationship Specialty Start Date End Date Anna Mullen MD PCP - General 12/03/10 [address] [place] [address] documented as of this encounter
--- OUTSIDE RECORDS SUMMARY | 2022-04-04 00:47 | XMS_ITS | Encounter Summary ---
:1965 Author Organization 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; Appointment [facility] [place] [address] Social History Tobacco Use Types [...] Melgar MD HEMATOLOGY ORDERABLES Performing Organization Address City/[facility]/[place] [address] CERNER MILLENNIUM (ABNORMAL) Hemogram [...] Melgar MD HEMATOLOGY ORDERABLES Performing Organization Address City/[facility]/[place] [address] CERNER MILLENNIUM (ABNORMAL) Hemoglobin A1c (08/22/2015 9:42 AM EST) Analysis Performed At [facility] Time Signature Hemoglobin A1C 5.8 (H) [...] Mellitus, Diabetes Care 2013; 36: Suppl. 1, S67-17 Est Avg Gluc 120 mg/dL CERNER MILLENNIUM Comment: eAG equivalents for HbA1c percentages: HbA1c(%) ?eAG(mg/dL) 6.0 ?126 6.5 ?140 7.0 ?154 7.5 ?169 8.0 ?183 8.5 ?197 9.0 ?212 9.5 ?226 10.0 ? 240 Limitations: The eAG calculation has not been validated on women, individuals below 18 years old and above 70 years old, and individuals with hemoglobinopathies. Additional resources are available on [facility] website: http://[employer]/DHMCadacalc Edinson GRISSOM, Nathaniel J, Ari R, et al. ??Tr anslating the A1C assay into estimated average glucose values. ??Diabetes Care 2008:31(8):4600-2619. Specimen Anatomical Collection Method Collection Time Receive d Time (Source) Location / / Volume Laterality Blood specimen 08/22/2015 9:42 AM 015 9:48 (specimen) EST AM EST Resulting Agency Comment Spec In Lab Eriberto Melgar MD CHEMISTRY ORDERABLES Performing Organization Address City/[facility]/ZIP Code Phon e Number [address] [facility] Lavender Tube HOLD (08/22/2015 9:42 AM EST) Patholo gist Method Time Signature Lavender Hold Sample in [facility] Specimen Anatomical Collection Method Collection Time Receive d Time (Source) Location / / Volume Laterality Blood specimen 08/22/2015 9:42 AM 015 9:48 (specimen) EST AM EST Eriberto Melgar MD HEMATOLOGY ORDERABLES Performing Organization Address City/[facility]/ZIP Code Phon e Number [address] [facility] Gold Tube HOLD (08/22/2015 9:42 AM EST) P athologist Signature Gold Hold Sample in [facility] lab. [facility] Specimen Anatomical Collection Method Collection Time Receive d Time (Source) Location / / Volume Laterality Blood specimen 08/22/2015 9:42 AM 015 9:48 (specimen) EST AM EST Eriberto Melgar MD CHEMISTRY ORDERABLES Performing Organization Address City/[facility] Phon e Number [address] [facility] (ABNORMAL) VIT D Total Evaluation (08/22/2015 9:42 AM EST) P athologist Signature 25-OH Vit D 24 (L) 30 - 100 [facility] Total ng/mL [facility] Comment: Deficient <10 ng/mL Insufficient 10 to 29 ng/mL Sufficient 30 to 100 ng/mL Potential Intoxication >100 ng/mL According to the [place] National Osteoporosi s Foundation, Vitamin D concentrations >30 ng/mL are sufficient to protect bone health. ??The National Kidney Foundation has similarly stated that pat ients with Vitamin D concentrations <30ng/mL should be considered to be insu fficient or deficient. http://Pl[employer]/DHMCnatlkidneyfoundat ion http://Plisten/DHMCVitD [employer] Vitamin D Immunoassay detec [...] Melgar MD CHEMISTRY ORDERABLES Performing Organization Address City/[facility]/ZIP Code Phon e Number [address] CERNER MILLENNIUM 1,25-dihydroxycholecalciferol (08/22/2015 9:42 AM EST) athologist Signature Vit D 1,25 49 18 - 64 CERNER pg/mL MILLENNIUM Comment: Test Performed by: [place] [address] Tube Drawing Supervisor: Dung Buenrostro II, M.D., Ph.D. Specimen Anatomical Collection Method Collection Time Receive d Time (Source) Location / / Volume Laterality Blood specimen 08/22/2015 9:42 AM 015 (specimen) EST 11:00 AM EST Resulting Agency Comment Spec In Lab Eriberto Melgar MD CHEMISTRY ORDERABLES Performing Organization Address City/[facility]/ZIP Code Phon e Number [address] CERNER MILLENNIUM PTH (08/22/2015 9:42 AM EST) athologist Signature PTH 56 15 - 65 CERNER pg/mL MILLENNIUM Specimen Anatomical Collection Method Collection Time Receive d Time (Source) Location / / Volume Laterality Blood specimen 08/22/2015 9:42 AM 015 9:48 (specimen) EST AM EST Resulting Agency Comment Spec In Lab Eriberto Melgar MD CHEMISTRY ORDERABLES Performing Organization Address City/[facility]/[place] [address] CERNER MILLENNIUM Lipase (08/22/2015 9:42 AM EST) athologist Signature Lipase 18 0 - 60 CERNER unit/L MILLENNIUM Specimen Anatomical Collection Method Collection Time Receive d Time (Source) Location / / Volume Laterality Blood specimen 08/22/2015 9:42 AM 015 9:48 (specimen) EST AM EST Resulting Agency Comment Spec In Lab Eriberto Melgar MD CHEMISTRY ORDERABLES Performing Organization Address City/[facility]/ZIP Code Phon e Number [address] CERNER MILLENNIUM Amylase (08/22/2015 9:42 AM EST) athologist Signature Amylase 58 28 - 100 CERNER unit/L MILLENNIUM Specimen Anatomical Collection Method Collection Time Receive d Time (Source) Location / / Volume Laterality Blood specimen 08/22/2015 9:42 AM 015 9:48 (specimen) EST AM EST Resulting Agency Comment Spec In Lab Eriberto Melgar MD CHEMISTRY ORDERABLES Performing Organization Address City/[facility]/ZIP Code Phon e Number [address] [facility] MILLENNIUM Tacrolimus level (08/22/2015 9:42 AM EST) athologist Signature Tacrolimus Lvl 5.7 ng/mL CERNER MILLENNIUM Comment: Trough therapeutic: 5-15 ng/mL Specimen Anatomical Collection Method Collection Time Receive d Time (Source) Location / / Volume Laterality Blood specimen 08/22/2015 9:42 AM 015 (specimen) EST 11:05 AM EST Resulting Agency Comment Spec In Lab Eriberto Melgar MD CHEMISTRY ORDERABLES Performing Organization Address City/[facility]/ZIP Code Phon e Number [address] CERNER MILLENNIUM Uric acid (08/22/2015 9:42 AM EST) athologist Signature Uric Acid 6.0 3.5 - 8.5 CERNER mg/dL MILLENNIUM Specimen Anatomical Collection Method Collection Time Receive d Time (Source) Location / / Volume Laterality Blood specimen 08/22/2015 9:42 AM 12/23/2 015 9:48 (specimen) EST AM EST Resulting Agency Comment Spec In Lab Eriberto Melgar MD CHEMISTRY ORDERABLES Performing Organization Address City/[facility]/ZIP Code Phon e Number [address] CERNER MILLENNIUM Phosphorus (08/22/2015 9:42 AM EST) P athologist Signature Phosphorus 3.2 2.5 - 4.5 CERNER mg/dL MILLENNIUM Specimen Anatomical Collection Method Collection Time Receive d Time (Source) Location / / Volume Laterality Blood specimen 08/22/2015 9:42 AM 015 9:48 (specimen) EST AM EST Resulting Agency Comment Spec In Lab Eriberto Melgar MD CHEMISTRY ORDERABLES Performing Organization Address City/[facility]/ZIP Code Phon e Number [address] CERNER MILLENNIUM (ABNORMAL) Magnesium (08/22/2015 9:42 AM EST) P athologist Signature Magnesium 0.68 (L) 0.69 - 1.07 CERNER mmol/L MILLENNIUM Specimen Anatomical Collection Method Collection Time Receive d Time (Source) Location / / Volume Laterality Blood specimen 08/22/2015 9:42 AM 015 9:48 (specimen) EST AM EST Resulting Agency Comment Spec In Lab Eriberto Melgar MD CHEMISTRY ORDERABLES Performing Organization Address City/[facility] Phon e Number [address] CERNER MILLENNIUM Lipid panel (fasting) (08/22/2015 9:42 AM EST) P athologist Signature Chol, Total 118 <=199 mg/dL CERNER MILLENNIUM Comment: Recommendations of the NCEP Adult Treatm ent Panel for the following risk cutoff thresholds for the [place] popul[place] n: Desirable: <200 mg/dL Borderline High: 200-239 mg/dL High: > or = 240 mg/dL Triglycerides 59 <=149 mg/dL CERNER MILLENN IUM Comment: Reference Range: Normal triglycerides: ??<150 mg/dL Borderline high: ??150-199 mg/dL High: ??200-499 mg/dL Very high: ??>ch=702 mg/dL MARQUEZ 2001; 285(19):2911-1152 HDL 45 >=40 mg/dL FARNAZ SWENSON Comment: Reference range: ??Low HDL: ?? < 40 mg/dL ??Normal: ?40-60 mg/dL ??Desirable: > 60 mg/dL MARQUEZ 2001; 285(19):6442-2947 LDL Cholesterol 61 <=99 mg/dL FARNAZ ENGLISH Comment: Reference range: ?? Optimal: ?<100 mg/dL ?? Near Optimal/Above Optimal: ?? 100-1 29 mg/dL ?? Borderline high: ?130-159 mg/dL ?? High: ? 160-189 mg/dL ?? Very high: ?>tr=909 mg/dL MARQUEZ 2001: 285(19):9166-4307 Chol/HDL Ratio 2.6 ratio FARNAZ STEELE UM Comment: A Cholesterol to HDL ratio below 4:1 is desirable. ??Studies suggest that increased CAD risk occurs at ratios abov e 5 for females and above 6 for men. ? [place] Heart Association ??(htt p://www.americanheart.org) ? Joy Int Med, 1994; 121:641 ? AM J Med, 1998; 105(1A):48S Specimen Anatomical Collection Method Collection Time Receive d Time (Source) Location / / Volume Laterality Blood specimen 08/22/2015 9:42 AM 015 9:48 (specimen) EST AM EST Resulting Agency Comment Spec In Lab Eriberto Melgar MD CHEMISTRY ORDERABLES Performing Organization Address City/State/[place] [address] FARNAZ SWENSON Reticulocyte Count [...] Organization Address City/State/[place] [address] CERNER MILLENNIUM CMP w/fasting [...] of Diabetes Mellitus, Position Statement from the [place] Diabetes Association. ??Diabete s Care, Volume 33, Supplement 1, Aug 2009 BUN 14 10 - 20 mg/dL CERNER MILLENNIU M Creatinine 1.07 0.80 - 1.50 mg/dL CERNER MILL ENNIUM Comment: Please note that the pediatric reference intervals supplied above were not validated at [facility]. Results from pediatri c patients should be [...] the following links into your internet browser. http://Plisten/DHnkdep http://Plisten/DHMCnkf Specimen Anatomical Collection Method Collection Time Receive d Time (Source) Location / / Volume Laterality Blood specimen 08/22/2015 9:42 AM 015 9:48 (specimen) EST AM EST Resulting Agency Comment Spec In Lab Eriberto Melgar MD CHEMISTRY ORDERABLES Performing Organization Address City/State/[place] [address] CERNER MILLENNIUM Protein/Creatinine Ratio, [...] Melgar MD URINE ORDERABLES Performing Organization Address City/[facility]/[place] [address] CERNER MILLENNIUM Phosphorus, urine, random (08/22/2015 9:41 AM EST) P athologist Signature U Phosphorus 12.0 mg/dL CERNER MILLENNIUM Specimen Anatomical Collection Method Collection Time Receive d Time (Source) Location / / Volume Laterality Urine specimen 08/22/2015 9:41 AM 015 9:48 (specimen) EST AM EST Resulting Agency Comment Spec In Lab Eriberto Melgar MD URINE ORDERABLES Performing Organization Address City/[facility]/[place] [address] CERNER MILLENNIUM Calcium Creatinine [...] Address City/State/[place] [address] [facility] Creatinine, urine, random (08/22/2015 9:41 AM EST) P athologist Signature U Creatinine 51 mg/dL CERNER MILLENNIUM Specimen Anatomical Collection Method Collection Time Receive d Time (Source) Location / / Volume Laterality Urine specimen 08/22/2015 9:41 AM 015 9:48 (specimen) EST AM EST Resulting Agency Comment Spec In Lab Eriberto Melgar MD URINE ORDERABLES Performing Organization Address City/State/[place] [address] CERNER MILLENNIUM Urinalysis with [...] UA Clear Clear CERNER MILLENNIU M Spec Colbert UA 1.009 1.002 - 1.030 CERNER MIL [...] Organization Address City/State/ZIP Code Phon e Number [place] [phone] [facility] documented in this encounter Visit Diagnoses Diagnosis 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
--- OUTSIDE RECORDS SUMMARY | 2022-04-04 00:47 | XMS_ITS | Encounter Summary ---
:1965 Author Organization [facility] [place] [address] Care Team Providers Name Role Phone Anna Mullen MD Primary Care Provider Encounter Details Date Type Department Care Team Description 10/30/2015 [place] [address] Social History Tobacco Use Types Packs/Day [...] TAKE ONE TABLET BY 90 tablet 3 08/3102/22/2016 hoprim (BACTRIM DS) MOUTH EVERY DAY 800-160 mg Tablet DIRECTED pantoprazole (PROTONIX) TAKE ONE TABLET BY 90 tablet 3 08/3102/22/2016 40 mg Tablet, Delayed MOUTH EVERY DAY Release (E.C.) esomeprazole (NEXIUM) Take 1 capsule by 30 [...] 1 gram Tablet mouth 2 times daily. aspirin 81 mg [...] Associated Diagnosis Comme nts TACROLIMUS LEVEL Routine 10/30/2015 7:55 AM Resul ts for this EST procedure are i n the results section. documented in this encounter Results Tacrolimus level (10/30/2015 7:55 AM EST) P athologist Signature Tacrolimus Lvl 7.8 ng/mL [facility] Comment: Trough therapeutic: 5-15 ng/mL Specimen Anatomical Collection Method Collection Time Receive d Time (Source) Location / / Volume Laterality Blood specimen Venous Draw / 10/30/2015 7:55 AM 2015 8:13 (specimen) Unknown EST AM EST Resulting Agency Comment Spec In Lab Eriberto Melgar MD CHEMISTRY ORDERABLES Performing Organization Address City/State/[place] [address] documented in this encounter Visit Diagnoses Not on filedocumented in this encounter Care Teams Hard Metals Engraver Hand Relationship Specialty Start Date End Date Anna Mullen MD PCP - General 12/03/10 [address] [place] [address] documented as of this encounter
--- OUTSIDE RECORDS SUMMARY | 2022-04-04 00:47 | XMS_ITS | Encounter Summary ---
:1965 Author Organization [facility] [place] [address] Care Team Providers Name Role Phone Anna Mullen MD Primary Care Provider Reason for Visit Reason Comments Medication Refill Encounter Details Date Type Department Care Team Description 05/21/2016 [facility] [place] [address] [place] [address] [phone] (Wo rk) Social History Tobacco Use Types [...] filedocumented in this encounter Care Teams Mill Stenciler Relationship Specialty Start Date End Date Anna Mullen MD PCP - General 12/03/10 [address] [place], [place] [address] documented as of this encounter
--- OUTSIDE RECORDS SUMMARY | 2022-04-04 00:47 | XMS_ITS | Encounter Summary ---
:1965 Author Organization [facility] [place] [address] Care Team Providers Name Role Phone Anna Mullen MD Primary Care Provider Encounter Details Date Type Department Care Team Description 05/22/2016 [place] [address] Social History Tobacco Use Types Packs/Day [...] P athologist Signature Tacrolimus Lvl 9.5 ng/mL [facility] [...] Organization Address City/State/ZIP Code Phon e Number [place] [phone] documented in this encounter Visit Diagnoses Not on filedocumented in this encounter Care Teams Vinegar Maker Relationship Specialty Start Date End Date Anna Mullen MD PCP - General 12/03/10 [address] [place] [address] documented as of this encounter
--- OUTSIDE RECORDS SUMMARY | 2022-04-04 00:47 | XMS_ITS | Encounter Summary ---
:1965 Author Organization [facility] [place] [address] Care Team Providers Name Role Phone Anna Mullen MD Primary Care Provider Encounter Details Date Type Department Care Team Description 09/07/2015 Hospital Encounter MRI at [facility] Mauricio Gonsalez MD [facility] [place] [address] GASTROENTEROLOGY [phone] DEPT. [place], [place] [address] (Wo rk) Social History Tobacco [...] AGE: 49 y.o. : 1965 [address] [facility] [address] Male [phone] (home) [phone] (work) Telephone Information: ANNA MULLEN MD None [...] ( crs ) You must have a fork truck driver present when you check in. This patient has been informed that they require a fork truck driver to drive them home after this procedure. In the absence of a fork truck driver, IR will not be able to sedate for your scan. Pt verbalized understanding of these instructions during the pre-procedure education via phone. Yes Name of fork truck driver: Tiffani, Phone number PRIOR SCAN DATE/S [...] 5mg po x2 yes PT STATED TO COMPLAINT CLERK THAT THE SEDATION WAS EFFECTIVE FOR SCAN: [...] mg documented in this encounter Care Teams Bending Machine Set Up Operator Relationship Specialty Start Date End Date Anna Mullen MD PCP - General 12/03/10 [address] [place] [address] documented as of this encounter
--- OUTSIDE RECORDS SUMMARY | 2022-04-04 00:47 | XMS_ITS | Encounter Summary ---
:1965 Author Organization [facility] [place] [address] Care Team Providers Name Role Phone Anna Mullen MD Primary Care Provider Reason for Visit Reason Comments Medication Refill Encounter Details Date Type Department Care Team Description 03/12/2016 [facility] [place] [address] [place] [address] [phone] (Wo rk) Social History Tobacco Use Types [...] on filedocumented in this encounter Care Teams Geothermal Heat Pump Machinist Relationship Specialty Start Date End Date Anna Mullen MD PCP - General 12/03/10 [address] [place] [address] documented as of this encounter
--- OUTSIDE RECORDS SUMMARY | 2022-04-04 00:47 | XMS_ITS | Encounter Summary ---
:1965 Author Organization [facility] [place] [address] Care Team Providers Name Role Phone Anna Mullen MD Primary Care Provider Encounter Details Date Type Department Care Team Description 07/29/2016 Abstract Solid Organ Transplant at Yomaira Zamudio [facility] E, [place] [address] Social History Tobacco Use Types Packs/Day [...] on filedocumented in this encounter Care Teams Buffer Nickel Relationship Specialty Start Date End Date Anna Mullen MD PCP - General 12/03/10 [address] [place], [place] [address] documented as of this encounter
--- OUTSIDE RECORDS SUMMARY | 2022-04-04 00:48 | XMS_ITS | Encounter Summary ---
:1965 Author Organization [facility] [place] [address] Care Team Providers Name Role Phone Anna Mullen MD Primary Care Provider Encounter Details Date Type Department Care Team Description 07/26/2014 Telephone Solid Organ Transplant at Anna Leslie PA [facility] [address] [facility] [place] [address] [place] [address] Social History Tobacco Use Types Packs/Day Years Used Date Never Smoker Smokeless Tobacco: Never Used Alcohol Use Standard Drinks/Week Comments No 0 (1 standard drink = 0.6 oz pure alcoho l) history of abuse, stopped 1996 Sex Assigned at Date Recorded Male 05/29/2021 11:28 PM EDT documented as of this encounter Miscellaneous Notes Telephone Encounter - Anna Ritter PA - 07/26/2014 2:52 PM EST Richard Guillen Aracelis, pancreas transplant 07/2013 calls with the following: Pt called to report that about 1 week ago he was lifting a stack of 3- 2x12 (x 12') boards while constructing a new deck. He reports that while said boards were hoisted he also twisted his torso and felt a sharp tearing pain on his left side, just above his belt line in the mid-axillary area. He states that it initially went away, but as the days have progressed, his pain has increased up from his belt line up to his Left shoulder. The pain is exacerbated by twisting his torso and is relieved withrest. Richard denies any new bulging in his abdomen or groin which he says he checks by laying on his back and raising his head and palpating his abdomen, legs and groin. He denies fever, changes in his bloodsugars, bowel/bladder. He does state that he is having difficulty sleeping at night as rolling over aggravates his pain. Richard reports that he saw his PCP about this pain and that his PCP feels that his pain is musculoskeletal in nature and that it could take 2 months to heal. I told him that I agree with his PCPs assessment and encouraged him to modify his activity level during this time to allow for appropriate healing. He has an appointment on 08/18 for 1 year follow up of his pancreas with Dr Melgar. MATT VASQUEZ. 07/26/2014 Pager [phone] documented in this encounter Plan of Treatment Not on filedocumented as of this encounter Visit Diagnoses Not on filedocumented in this encounter Care Teams Jet Piercer Operator Relationship Specialty Start Date End Date Anna Mullen MD PCP - General 12/03/10 [address] [place] [address] documented as of this encounter
--- OUTSIDE RECORDS SUMMARY | 2022-04-04 00:48 | XMS_ITS | Encounter Summary ---
:1965 Author Organization [facility] [place] [address] Care Team Providers Name Role Phone Anna Mullen MD Primary Care Provider Reason for Visit Auth/Cert - Closed Specialty Diagnoses / Procedures Referred By Contact Refer red To Contact Diagnoses abd pain/nausea/vomiting Procedures PRO UPPER GI ENDOSCOPY, DIAGNOSTIC EGD, UPPER GI ENDOSCOPY Referral ID Status Reason Start Date Expiration Date Visits Requ ested Visits Authorized [id number] Closed 1 1 Encounter Details Date Type Department Care Team Description 08/15/2015 Surgery Gastroenterology at [facility] Mauricio Gonsalez MD EGD WITH BIOPSY ([facility] D [facility] 2.49) [place] [address] GASTROENTEROLOGY DEPT. [place], [place] [address] Social History Tobacco Use Types [...] better as expected. Thursday-Thursday Same Day Endo [phone]-[phone] Otherwise contact [phone] and ask to speak to the business process associate sponge diver Follow-up care is a du part of [...] Surgical Pathology Report (08/15/2015 10:47 AM EST) [facility] Method Time Signature Surgical [id number] ? Location: [facility] Pathology [facility] Report The signing pathologist has (i) [...] Organization Address City/State/[place] [address] [facility] Specimen to Pathology (surgical or derm) (08/15/2015 [...] Organization Address City/State/[place] [address] [facility] Specimen to Pathology (surgical or derm) (08/15/2015 10:47 AM EST) Specimen Anatomical Collection Method Collection Time Receive d Time (Source) Location / / Volume Laterality AP Specimen 08/15/2015 10:47 08/15/2015 AM EST 10:47 AM EST Narrative [facility] - 08/15/2015 10:47 AM EST Specimen requisition ordered. ??Separate Pathology report to follow Mauricio Gonsalez MD PATHOLOGY/CYTOLOGY ORDERABLE S Performing Organization Address City/[facility] [place] [address] FARNAZ SWENSON UPPER GI ENDOSCOPY (08/15/2015 10:23 AM EST) Component Value Ref Test Analysis Performed At [facility] [place] Method Time Signature UPPER GI [facility] PROVATION ENDOSCOPY Endoscopy Patient Name: Richard Hsu ? Procedure Date: 08/15/2015 10:23 AM ? N: [id number] ? Date of : 1965 ? Age: 49 ? Order #: [id number] ? Procedure: ? Upper GI endoscopy Indications: [...] reactions. The ? Endoscope was introduced thro [facility] the ? mouth, and advanced to the [facility] part ? of duodenum. The patient tole rated ? the procedure well. The upper GI ? endoscopy was accomplished [facility] ? [facility]. ? Findings: ? The examined [...] Procedure Code(s): ?? --- Professional --- ? 14965, Esophagogastroduodenos copy, ? flexible, transoral; with bio psy, ? single or multiple CPT copyright 2014 [place]. All rights reserved. The codes documented in this report are preliminary and upon lime trimmer review may be revised to meet current [...] Routine documented in this encounter Care Teams Blow Down Helper Relationship Specialty Start Date End Date Anna Mullen MD PCP - General 12/03/10 [address] [place] [address] documented as of this encounter
--- OUTSIDE RECORDS SUMMARY | 2022-04-04 00:48 | XMS_ITS | Encounter Summary ---
:1965 Author Organization [facility] [place] [address] Care Team Providers Name Role Phone Anna Mullen MD Primary Care Provider Reason for Visit Reason Comments Medication Refill Encounter Details Date Type Department Care Team Description 07/30/2014 Refill Solid Organ Transplant at Kj Odell MD [facility] ankit [place] [address] [place] [address] [phone] (Wo rk) Social History Tobacco Use Types [...] on filedocumented in this encounter Care Teams Skip Load Driver Relationship Specialty Start Date End Date Anna Mullen MD PCP - General 12/03/10 [address] [place], [place] [address] documented as of this encounter
--- OUTSIDE RECORDS SUMMARY | 2022-04-04 00:48 | XMS_ITS | Encounter Summary ---
:1965 Author Organization [place] [address] Care Team Providers Name Role Phone Anna Mullen MD Primary Care Provider Encounter Details Date Type Department Care Team Description 02/06/2015 Hospital Encounter DHART at at Tiffani Melgar, Eriberto Stoddard MD [facility] [place] [place] [address] TRANSPLANT SURGERY [phone] [place], [place] [address] (Wo rk) Social History Tobacco [...] times daily. Diabetic Supplies, Fax form to [facility] 100 each 12 06/26/2014 1 10/14/2014 [employer]. [facility] medical for testing supplies 4 times [...] Associated Diagnosis Comme nts TACROLIMUS LEVEL Routine 02/06/2015 7:45 AM Resul ts for this EDT procedure are i n the results section. documented in this encounter Results Tacrolimus level (02/06/2015 7:45 AM EDT) athologist Signature Tacrolimus Lvl 6.9 ng/mL [facility] Comment: Trough therapeutic: 5-15 ng/mL Specimen Anatomical Collection Method Collection Time Receive d Time (Source) Location / / Volume Laterality Blood specimen Venous Draw / 02/06/2015 7:45 AM 2014 8:09 (specimen) Unknown EDT AM EDT Resulting Agency Comment Spec In Lab Eriberto Melgar MD CHEMISTRY ORDERABLES Performing Organization Address City/State/[place] [address] FARNAZ SWENSON documented in this encounter Visit Diagnoses Not on filedocumented in this encounter Care Teams Retail Support Specialist Relationship Specialty Start Date End Date Anna Mullen MD PCP - General 12/03/10 [address] [place] [address] documented as of this encounter
--- OUTSIDE RECORDS SUMMARY | 2022-04-04 00:48 | XMS_ITS | Encounter Summary ---
:1965 Author Organization [facility] [place] [address] Care Team Providers Name Role Phone Anna Mullen MD Primary Care Provider Encounter Details Date Type Department Care Team Description 09/07/2014 [facility] Nev[place]; [address] Bruno B [address] [place] [address] DERMATOLOGY [phone] [place], [place] [address] (Wo rk) Social History [...] clinic in another year for repeat check; [id number]-yd-[id number] reminder in one year. COPY: Anna Mullen M.D. Eriberto Melgar M.D. documented in this encounter Plan of Treatment Not on filedocumented as of this encounter Visit Diagnoses Diagnosis Nevus Benign neoplasm of skin, site unspecifie d Vitiligo documented in this encounter Care Teams Nutrition Internship Relationship Specialty Start Date End Date Anna Mullen MD PCP - General 12/03/10 [address] [place] [address] documented as of this encounter
--- OUTSIDE RECORDS SUMMARY | 2022-04-04 00:48 | XMS_ITS | Encounter Summary ---
:1965 Author Organization [facility] [place] [address] Care Team Providers Name Role Phone Anna Mullen MD Primary Care Provider Reason for Visit Auth/Cert - Closed Specialty Diagnoses / Procedures Referred By Contact Refer red To Contact Diagnoses abd pain/nausea/vomiting Procedures PRO UPPER GI ENDOSCOPY, DIAGNOSTIC EGD, UPPER GI ENDOSCOPY Referral ID Status Reason Start Date Expiration Date Visits Requ ested Visits Authorized [id number] Closed 1 1 Encounter Details Date Type Department Care Team Description 08/15/2015 Hospital Encounter Gastroenterology at [facility] [place] [address] CENTER [phone] GASTRO[address]Y DEPT. [place], [place] [address] Social History Tobacco Use Types [...] better as expected. Thursday-Thursday Same Day Endo [phone]-8p Otherwise contact [phone] and ask to speak to the motors and controls tester hydroelectric station chief Follow-up care is a du part of [...] Surgical Pathology Report (08/15/2015 10:47 AM EST) [facility] Method Time Signature Surgical [id number] ? Location: [facility] Pathology [facility] Report The signing pathologist has (i) examined [...] Organization Address City/State/[place] [address] [facility] Specimen to Pathology (surgical or derm) (08/15/2015 10:47 AM EST) Specimen Anatomical Collection Method Collection Time Receive d Time (Source) Location / / Volume Laterality AP Specimen 08/15/2015 10:47 08/15/2015 AM EST 10:47 AM EST Narrative CERNER MILLENNIUM - 08/15/2015 10:47 AM EST Specimen requisition ordered. ??Separate Pathology report to follow Mauricio Gonsalez MD PATHOLOGY/CYTOLOGY ORDERABLE S Performing Organization Address City/[facility]/[place] [address] FARNAZ SWENSON Specimen to [...] MD PATHOLOGY/CYTOLOGY ORDERABLE S Performing Organization Address City/[facility]/ZIP Code Phon e Number [address] CERGUILLERMINA SWENSON UPPER GI ENDOSCOPY (08/15/2015 10:23 AM EST) Component Value Ref Test Analysis Performed At [facility] [place] Method Time Signature UPPER GI [facility] PROVATION ENDOSCOPY Endoscopy Patient Name: Richard Hsu ? Procedure Date: 08/15/2015 10:23 AM ? Date of : 1965 ? Age: 49 ? Order #: [id number] ? Procedure: ? Upper GI endoscopy Indications: [...] reactions. The ? Endoscope was introduced thro [facility] the ? mouth, and [facility] ? of duodenum. The patient [...] Procedure Code(s): ?? --- Professional --- ? 05001, Esophagogastroduodenos copy, ? flexible, transoral; with bio psy, ? single or multiple CPT copyright 2014 [place] [employer]. All rights reserved. The codes documented in this report are preliminary and upon it auditor review may be revised to meet current [...] Routine documented in this encounter Care Teams Marketing Education Teacher Relationship Specialty Start Date End Date Anna Mullen MD PCP - General 12/03/10 [address] [place] [address] documented as of this encounter
--- OUTSIDE RECORDS SUMMARY | 2022-04-04 00:48 | XMS_ITS | Encounter Summary ---
:1965 Author Organization [facility] [place] [address] Care Team Providers Name Role Phone Anna Mullen MD Primary Care Provider Encounter Details Date Type Department Care Team Description 02/08/2015 Interpretation Only Radiology at [facility] Ce nter None 1 [facility] [place] [address] Social History Tobacco Use Types Packs/Day [...] 6:36 AM EDT APD Historical Result Principal Shower Maid: ??LINDSAY ??ANGELA Mae INTRAOPERATIVE FLUOROSCOPY: A total of 5.7 seconds (5.44 mGy) of int raoperative fluoroscopy was used by Dr Nicholson. ?? There was no Radiologist present during the exam. Six spot images document the procedure. ?? Radiopaque instruments demonstrate the L4-5 level a s well as L5/S1 level. Lindsay Philip MD [facility]/pa [id number] CC: Procedure Note Unknown - 02/28/2019Formatting of this n ote might be different from the original. APD Historical Result Principal Shower Maid: LINDSAY PHILIP INTRAOPERATIVE FLUOROSCOPY: A total of 5.7 seconds (5.44 mGy) of int raoperative fluoroscopy was used by Dr Nicholson. There was no Radiologist present during the exam. Six spot images document the procedure. Radiopaque instruments demonstrate the L4-5 level a s well as L5/S1 level. Lindsay Philip MD [facility]/pa [id number] CC: Unknown IMG FLUORO ORDERABLES documented in this encounter Visit Diagnoses Not on filedocumented in this encounter Care Teams Centrifuge Operator Relationship Specialty Start Date End Date Anna Mullen MD PCP - General 12/03/10 [address] [place] [address] documented as of this encounter
--- OUTSIDE RECORDS SUMMARY | 2022-04-04 00:48 | XMS_ITS | Encounter Summary ---
:1965 Author Organization [facility] [place] [address] Care Team Providers Name Role Phone Anna Mullen MD Primary Care Provider Encounter Details Date Type Department Care Team Description 07/13/2014 External Results [place] [address] Social History Tobacco Use Types Packs/Day [...] Procedure Name Priority Date/Time Associated Diagnosis Comme [facility] TRANSPLANT FOLLOW UP LABS Routine 07/08/2014 EXTERNAL RESULTS PANEL documented in this encounter Results Transplant: Follow up lab request - External Results (07/08/2014) Narrative This result has an attachment that is no t available. Historical Provider CHEMISTRY ORDERABLES documented in this encounter Visit Diagnoses Not on filedocumented in this encounter Care Teams Attendance Secretary Relationship Specialty Start Date End Date Anna Mullen MD PCP - General 12/03/10 [address] [place], [place] [address] documented as of this encounter
--- OUTSIDE RECORDS SUMMARY | 2022-04-04 00:48 | XMS_ITS | Encounter Summary ---
:1965 Author Organization [facility] [place] [address] Care Team Providers Name Role Phone Anna Mullen MD Primary Care Provider Encounter Details Date Type Department Care Team Description 09/02/2014 Notes Only Solid Organ Transpla nt at [facility] [place] [address] Social History Tobacco Use Types Packs/Day [...] filedocumented in this encounter Care Teams Director Of Exhibits Relationship Specialty Start Date End Date Anna Mullen MD PCP - General 12/03/10 [address] [place] [address] documented as of this encounter
--- OUTSIDE RECORDS SUMMARY | 2022-04-04 00:48 | XMS_ITS | Encounter Summary ---
:1965 Author Organization [facility] [place] [address] Care Team Providers Name Role Phone Anna Mullen MD Primary Care Provider Encounter Details Date Type Department Care Team Description 06/05/2015 [place] [address] Social History Tobacco Use Types Packs/Day [...] Release (E.C.) Diabetic Supplies, Fax form to [facility] 100 each 12 06/26/2014 1 10/14/2014 [facility] [...] athologist Signature Tacrolimus Lvl 6.0 ng/mL [facility] Comment: Trough therapeutic: 5-15 ng/mL Specimen Anatomical Collection Method Collection Time Receive d Time (Source) Location / / Volume Laterality Blood specimen Venous Draw / 06/05/2015 7:20 AM 2014 8:04 (specimen) Unknown EDT AM EDT Resulting Agency Comment Spec In Lab Eriberto Melgar MD CHEMISTRY ORDERABLES Performing Organization Address City/State/[place] [address] [facility] documented in this encounter Visit Diagnoses Not on filedocumented in this encounter Care Teams Plaster Model And Mold Maker Relationship Specialty Start Date End Date Anna Mullen MD PCP - General 12/03/10 [address] [place] [address] documented as of this encounter
--- OUTSIDE RECORDS SUMMARY | 2022-04-04 00:48 | XMS_ITS | Encounter Summary ---
:1965 Author Organization [facility] [place] [address] Care Team Providers Name Role Phone Anna Mullen MD Primary Care Provider Encounter Details Date Type Department Care Team Description 10/02/2014 Hospital Encounter Laboratory [facility] [place] [address] TRANSPLANT SURGE [place], [place] [address] (Wo rk) Social History Tobacco [...] times daily. Diabetic Supplies, Fax form to [facility] 100 each 12 06/26/2014 1 10/14/2014 [facility] medical for testing [...] Organization Address City/State/[place] [address] CERNER MILLENNIUM documented in this encounter Visit Diagnoses Not on filedocumented in this encounter Care Teams Maintainability Engineer Relationship Specialty Start Date End Date Anna Mullen MD PCP - General 12/03/10 [address] [place] [address] documented as of this encounter
--- OUTSIDE RECORDS SUMMARY | 2022-04-04 00:48 | XMS_ITS | Encounter Summary ---
:1965 Author Organization [facility] [place] [address] Care Team Providers Name Role Phone Anna Mullen MD Primary Care Provider Encounter Details Date Type Department Care Team Description 01/03/2015 Hospital Encounter Laboratory [facility] [place] [address] TRANSPLANT SURGE [place], [place] [address] (Wo rk) Social History Tobacco [...] times daily. Diabetic Supplies, Fax form to [facility] 100 each 12 06/26/2014 1 10/14/2014 [employer]. [facility] medical for testing supplies [...] Organization Address City/State/[place] [address] [facility] Tacrolimus level (01/03/2015 8:30 AM EDT) P athologist Signature Tacrolimus Lvl 5.3 ng/mL [facility] Comment: Trough therapeutic: 5-15 ng/mL Specimen Anatomical Collection Method Collection Time Receive d Time (Source) Location / / Volume Laterality Blood specimen Venous Draw / 01/03/2015 8:30 AM 2014 7:56 (specimen) Unknown EDT AM EDT Resulting Agency Comment Spec In Lab Eriberto Melgar MD CHEMISTRY ORDERABLES Performing Organization Address City/State/[place] [address] [facility] documented in this encounter Visit Diagnoses Not on filedocumented in this encounter Care Teams Patient Relations Manager Relationship Specialty Start Date End Date Anna Mullen MD PCP - General 12/03/10 [address] [place] [address] documented as of this encounter
--- OUTSIDE RECORDS SUMMARY | 2022-04-04 00:48 | XMS_ITS | Encounter Summary ---
:1965 Author Organization [facility] [address] Care Team Providers Name Role Phone Anna Mullen MD Primary Care Provider Reason for Visit Reason Comments Medication Refill Encounter Details Date Type Department Care Team Description 05/16/2015 Refill Solid Organ Transplant at [facility] Emer[facility] [place] [address] [place] [address] [phone] (Wo rk) Social History Tobacco Use Types [...] filedocumented in this encounter Care Teams Retail Team Leader Relationship Specialty Start Date End Date Anna Mullen MD PCP - General 12/03/10 [address] [place] [address] documented as of this encounter
--- OUTSIDE RECORDS SUMMARY | 2022-04-04 00:48 | XMS_ITS | Encounter Summary ---
:1965 Author Organization [facility] [place] [address] Care Team Providers Name Role Phone Anna Mullen MD Primary Care Provider Encounter Details Date Type Department Care Team Description 07/03/2015 Hospital [place] [address] Social History Tobacco Use Types Packs/Day [...] Release (E.C.) Diabetic Supplies, Fax form to [facility] 100 each 12 06/26/2014 1 10/14/2014 [facility] [employer]. [facility] for testing supplies 4 times per [...] Lavender Tube HOLD (07/03/2015 7:30 AM EST) [facility] Method Time Signature Lavender Hold Sample [facility] lab. MILLENNIUM Specimen Anatomical Collection Method Collection Time Receive d Time (Source) Location / / Volume Laterality Blood specimen Venous Draw / 07/03/2015 7:30 AM 2014 8:50 (specimen) Unknown EST PM EST Eriberto Melgar MD HEMATOLOGY ORDERABLES Performing Organization Address City/State/[place] [address] [facility] Tacrolimus level (07/03/2015 7:30 AM EST) P athologist Signature Tacrolimus Lvl 7.0 ng/mL [facility] Comment: Trough therapeutic: 5-15 ng/mL Specimen Anatomical Collection Method Collection Time Receive d Time (Source) Location / / Volume Laterality Blood specimen Venous Draw / 07/03/2015 7:30 AM 2014 8:07 (specimen) Unknown EST AM EST Resulting Agency Comment Spec In Lab Eriberto Melgar MD CHEMISTRY ORDERABLES Performing Organization Address City/[facility]/ZIP [place] [address] [facility] documented in this encounter Visit Diagnoses Not on filedocumented in this encounter Care Teams Acid Strength Inspector Relationship Specialty Start Date End Date Anna Mullen MD PCP - General 12/03/10 [address] [place] [address] documented as of this encounter
--- OUTSIDE RECORDS SUMMARY | 2022-04-04 00:48 | XMS_ITS | Encounter Summary ---
:1965 Author Organization [facility] [place] [address] Care Team Providers Name Role Phone Anna Mullen MD Primary Care Provider Encounter Details Date Type Department Care Team Description 01/30/2015 Hospital Encounter DHART at at Tiffani Melgar, Eriberto Stoddard MD [facility] [place] [address] TRANSPLANT SURGERY [phone] [place], [place] [address] (Wo rk) Social History Tobacco [...] times daily. Diabetic Supplies, Fax form to [facility] 100 each 12 06/26/2014 1 10/14/2014 [employer]. [facility] for testing supplies 4 times per [...] EDT) athologist Signature Tacrolimus Lvl 10.1 ng/mL [facility] Comment: Trough therapeutic: 5-15 ng/mL Specimen Anatomical Collection Method Collection Time Receive d Time (Source) Location / / Volume Laterality Blood specimen Venous Draw / 01/30/2015 9:45 AM 2014 8:33 (specimen) Unknown EDT AM EDT Resulting Agency Comment Spec In Lab Eriberto Melgar MD CHEMISTRY ORDERABLES Performing Organization Address City/State/[place] [address] FARNAZ LARRYADILENE documented in this encounter Visit Diagnoses Not on filedocumented in this encounter Care Teams Jail Keeper Relationship Specialty Start Date End Date Anna Mullen MD PCP - General 12/03/10 [address] [place] [address] documented as of this encounter
--- OUTSIDE RECORDS SUMMARY | 2022-04-04 00:48 | XMS_ITS | Encounter Summary ---
:1965 Author Organization [facility] [place] [address] Care Team Providers Name Role Phone Anna Mullen MD Primary Care Provider Reason for Visit Reason Comments Medication Refill Encounter Details Date Type Department Care Team Description 10/08/2014 Refill Solid Organ Transplant at Davina bullard, Kj Rey MD [facility] sagee [place] [address] [place] [address] [phone] (Wo rk) Social History Tobacco Use Types [...] on filedocumented in this encounter Care Teams Flying Ii Instructor Relationship Specialty Start Date End Date Anna Mullen MD PCP - General 12/03/10 [address] [place], [place] [address] documented as of this encounter
--- OUTSIDE RECORDS SUMMARY | 2022-04-04 00:48 | XMS_ITS | Encounter Summary ---
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 for prophylactic immunotherapy Eriberto Melgar, [facility] Endoscopy 4t MD [facility] [address] [place] [phone] Referral ID Status Reason Start Date Expiration Date Visits V isits Requested Authorized [id number] Closed Test Only 08/25/2014 08/25/2015 1 1 Reason for Visit Reason Comments Pancreas Transplant Follow-up Encounter Details Date Type Department Care Team Description 08/16/2014 Follow-Up Solid Organ Transplant Eriberto Melgar Kidney replaced by transplant; at [facility] MD Arlyn 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 His [place] kidney function is less than 1.0 mg/dL. [...] virus only) ??? Hepatitis C Screening (B. [id number]) ??? Pneumovax Q5 years ??? Yearly ophthalmology [...] GI ENDOSCOPY performed by CLAYTON BHAKTA at [facility] ENDOSCOPY ??? Upper gi endoscopy, biopsy 12/31/2011 UPPER GASTROINTESTINAL ENDOSCOPY,WITH BIOPSY SINGLE OR MULTIPLE performed by CLAYTON BHAKTA at [facility] ENDOSCOPY ??? Shoulder surgery ??? Carpal tunnel release ??? Appendectomy ??? Musculoskeletal surgery unlisted 10 years carpel tunnel ??? 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 Transplant allograft pancreas 08/28/2013 @PANCREATIC TRANSPLANT performed by Iraj Keller MD at [facility] MAIN OR ??? Transplant, prep donor pancreas 08/28/2013 @PREPARATION CADAVERIC PANCREAS, STANDARD performed by Iraj Keller MD at [facility] MAIN OR Family History Problem Relation [...] capsule, Rfl: 3, ; Diabetic Supplies, Miscellan. [facility], Fax form to [facility] medical for testing supplies 4 times per [...] Appearance UA Latest Range: Clear Clear Spec [place] UA Latest Range: 1.002-1.030 1.008 pH UA [...] a colo to be done here at [facility]. RTC: 6 months; continue monthly labs. Pharmacy [...] Organization Address City/State/[place] [address] CERNER MILLENNIUM Phosphorus, urine, [...] Address City/State/ZIP Code Phon e Number [address] CERNER MILLENNIUM Calcium Creatinine [...] Performing Organization Address City/[facility]/[place] [address] CERNER MILLENNIUM Creatinine, urine, random (08/16/2014 9:04 AM EST) athologist Signature U Creatinine 34 mg/dL [facility] Specimen Anatomical Collection Method Collection Time Receive d Time (Source) Location / / Volume Laterality Urine specimen 08/16/2014 9:04 AM 014 9:13 (specimen) EST AM EST Resulting Agency Comment Spec In Lab Eriberto Melgar MD URINE ORDERABLES Performing Organization Address City/[facility]/[place] [address] [facility] Urinalysis with microscopic (08/16/2014 9:04 AM EST) [facility] [employer]Franklin Consulting Method Time Signature Glucose UA Negative Negative [...] clinically indicated. Urobilinogen UA Normal Normal mg/dL [facility] MILL ENNIUM pH UA 7.0 5.0 - 8.0 [facility] Blood UA Negative Negative mg/dL [facility] UM Ketones UA Negative Negative mg/dL [facility] MILLENN IUM Nitrite UA Negative Negative [facility] MILLENNIUM Leukocytes UA Negative Negative mcL [facility] LALA NIUM Appearance UA Clear Clear [facility] MILLENNIU M Spec [place] UA 1.008 1.002 - 1.030 [facility] MIL LENNIUM Color UA Yellow Yellow [facility] RBC UA Not Present 0 - 3 /HPF [facility] WBC UA <1 0 - 3 /HPF [facility] Specimen Anatomical Collection Method Collection Time Receive d Time (Source) Location / / Volume Laterality Urine specimen 08/16/2014 9:04 AM 014 9:13 (specimen) EST AM EST Resulting Agency Comment Spec In Lab Eriberto Melgar MD URINE ORDERABLES Performing Organization Address City/[facility]/[place] [address] [facility] BK Quant Blood Result (08/16/2014 9:02 AM EST) Component Value Ref Test Analysis Performed At [facility] [employer] Consult[employer] Range Method Time Signature BKV Blood Not Detected CERNER Result MILLENNIUM BKV Blood BK Virus Blood Result Interpretation CERNER Interp MILLENNIUM Result: BK Virus not detected log concentration (copies/mL): ??Not detected Assay Range: ??plasma: 3.04-9.04 log helicopter officer ies/mL (1.1x10^3 - 1.1x10^9 copies/mL) Results are reported as log copies/mL. ??Changes of less than 1.0 log between serial samples may not be clinically significant. Methods: Quantitative real-time polymerase chain react ion (PCR) of viral DNA isolated from plasma was performed using octoScope BKV (ASR) re agents and the [employer] FAST Real-Time PCR System. In additi on, the ??PCR product sequence is confirmed using physical properties (bria ting curve analysis). This test was developed and its performance determined by the [facility] Molecular Pathology Laboratory. It has [...] Organization Address City/State/[place] [address] CERNER MILLENNIUM Differential, Automated [...] Organization Address City/State/[place] [address] CERNER MILLENNIUM (ABNORMAL) Hemogram [...] RDWSD 42.4 35.0 - CERNER 46.0 fL [facility] RDWCV 13.1 10.9 - CERNER 14.4 % [facility] MPV 10.1 9.0 - 12.0 [facility] Specimen Anatomical Collection Method Collection Time Receive d Time (Source) Location / / Volume Laterality Blood specimen 08/16/2014 9:02 AM 014 9:08 (specimen) EST AM EST Resulting Agency Comment Spec In Lab Eriberto Melgar MD HEMATOLOGY ORDERABLES Performing Organization Address City/State/[place] [address] [facility] Lavender Tube HOLD (08/16/2014 9:02 AM EST) Patholo gist Method Time Signature Lavender Hold Sample in [facility] lab. [facility] Specimen Anatomical Collection Method Collection Time Receive d Time (Source) Location / / Volume Laterality Blood specimen 08/16/2014 9:02 AM 014 9:08 (specimen) EST AM EST Eriberto Melgar MD HEMATOLOGY ORDERABLES Performing Organization Address City/State/ZIP Code Phon e Number [address] [facility] Gold Tube HOLD (08/16/2014 9:02 AM EST) P athologist Signature Gold Hold Sample in [facility] lab. [facility] Specimen Anatomical Collection Method Collection Time Receive d Time (Source) Location / / Volume Laterality Blood specimen 08/16/2014 9:02 AM 9:08 (specimen) EST AM EST Eriberto Melgar MD CHEMISTRY ORDERABLES Performing Organization Address City/State/[place] [address] [facility] (ABNORMAL) VIT D Total Evaluation (08/16/2014 9:02 AM EST) P athologist Signature 25-OH Vit D 25 (L) 30 - 100 [facility] Total ng/mL [facility] Comment: Deficient <10 ng/mL Insufficient 10 to 29 ng/mL Sufficient 30 to 100 ng/mL Potential Intoxication >100 ng/mL According to the [place] National Osteoporosi s Foundation, Vitamin D concentrations >30 ng/mL are sufficient to protect bone health. ??The National Kidney Foundation has similarly stated that pat ients with Vitamin D concentrations <30ng/mL should be considered to be insu fficient or deficient. http://Lifebooker.com/DHnatlkidneyfoundat ion http://Lifebooker.com/DHMCVitD The IDS iSYS Vitamin D Immunoassay detec [...] Performing Organization Address City/[facility]/ZIP Code Phon e Number [address] CERNER MILLENNIUM 1,25-dihydroxycholecalciferol (08/16/2014 9:02 AM EST) P athologist Signature Vit D 1,25 46 18 - 64 CERNER pg/mL MILLENNIUM Comment: Test Performed by: [place] [address] Unix Manager: Bruce Moore Specimen Anatomical Collection Method Collection Time Receive d Time (Source) Location / / Volume Laterality Blood specimen 08/16/2014 9:02 AM 014 (specimen) EST 11:22 AM EST Resulting Agency Comment Spec In Lab Eriberto Melgar MD CHEMISTRY ORDERABLES Performing Organization Address City/[facility]/ZIP Code Phon e Number [address] CERNER MILLENNIUM (ABNORMAL) PTH [...] Performing Organization Address City/[facility]/[place] [address] CERNER MILLENNIUM Lipase (08/16/2014 [...] Performing Organization Address City/[facility]/ZIP Code Phon e Number [address] CERNER MILLENNIUM Amylase (08/16/2014 [...] Performing Organization Address City/[facility]/ZIP Code Phon e Number [address] CERNER MILLENNIUM Tacrolimus level [...] Performing Organization Address City/[facility]/[place] [address] CERNER MILLENNIUM Uric acid (08/16/2014 9:02 AM EST) athologist Signature Uric Acid 5.2 3.5 - 8.5 CERNER mg/dL [facility] Specimen Anatomical Collection Method Collection Time Receive d Time (Source) Location / / Volume Laterality Blood specimen 08/16/2014 9:02 AM 014 9:08 (specimen) EST AM EST Resulting Agency Comment Spec In Lab Eriberto Melgar MD CHEMISTRY ORDERABLES Performing Organization Address City/[facility]/ZIP Code Phon e Number [address] [facility] MILLENNIUM Phosphorus (08/16/2014 9:02 AM EST) athologist Signature Phosphorus 3.0 2.5 - 4.5 CERNER mg/dL [facility] Specimen Anatomical Collection Method Collection Time Receive d Time (Source) Location / / Volume Laterality Blood specimen 08/16/2014 9:02 AM 014 9:08 (specimen) EST AM EST Resulting Agency Comment Spec In Lab Eriberto Melgar MD CHEMISTRY ORDERABLES Performing Organization Address City/[facility]/ZIP Code Phon e Number [address] [facility] MILLENNIUM (ABNORMAL) Magnesium (08/16/2014 9:02 AM EST) athologist Signature Magnesium 0.64 (L) 0.69 - 1.07 CERNER mmol/L [facility] Specimen Anatomical Collection Method Collection Time Receive d Time (Source) Location / / Volume Laterality Blood specimen 08/16/2014 9:02 AM 014 9:08 (specimen) EST AM EST Resulting Agency Comment Spec In Lab Eriberto Melgar MD CHEMISTRY ORDERABLES Performing Organization Address City/[facility]/ZIP Code Phon e Number [address] CERNER MILLENNIUM Reticulocyte Count [...] Organization Address City/State/[place] [address] CERNER MILLENNIUM Lipid panel (fasting) (08/16/2014 9:02 AM EST) P athologist Signature Chol, Total 123 <=199 mg/dL CERNER MILLENNIUM Comment: Recommendations of the NCEP Adult Treatm ent Panel for the following risk cutoff thresholds for the [place] populatio n: Desirable: <200 mg/dL Borderline High: 200-239 mg/dL High: > or = 240 mg/dL Triglycerides 106 <=149 mg/dL [facility] Comment: Reference Range: Normal triglycerides: ??<150 mg/dL Borderline high: ??150-199 mg/dL High: ??200-499 mg/dL Very high: ??>tu=222 mg/dL MARQUEZ 2001; 285(19):0727-1142 HDL 43 >=40 mg/dL CERNER MILLENNIUM Comment: Reference range: ??Low HDL: ?? < 40 mg/dL ??Normal: ?40-60 mg/dL ??Desirable: > 60 mg/dL MARQUEZ 2001; 285(19):2646-7277 LDL Cholesterol 59 <=99 mg/dL [facility] ENGLISH Comment: Reference range: ?? Optimal: ?<100 mg/dL ?? Near Optimal/Above Optimal: ?? 100-1 29 mg/dL ?? Borderline high: ?130-159 mg/dL ?? High: ? 160-189 mg/dL ?? Very high: ?>fk=758 mg/dL MARQUEZ 2001: 285(19):7402-2697 Chol/HDL Ratio 2.9 ratio [facility] UM Comment: A Cholesterol to HDL ratio below 4:1 is desirable. ??Studies suggest that increased CAD risk occurs at ratios abov e 5 for females and above 6 for men. ? [place] Heart Association ??(htt p://www.americanheart.org) ? Joy Int Med, 1994; 121:641 ? AM J Med, 1998; 105(1A):48S Specimen Anatomical Collection Method Collection Time Receive d Time (Source) Location / / Volume Laterality Blood specimen 08/16/2014 9:02 AM 014 9:08 (specimen) EST AM EST Resulting Agency Comment Spec In Lab Eriberto Melgar MD CHEMISTRY ORDERABLES Performing Organization Address City/State/[place] [address] F[facility]NA[facility] SWENSON (ABNORMAL) CMP w/fasting Glucose (08/16/2014 9:02 AM EST) athologist Signature Glucose 105 (H) 65 - 99 [facility] Fasting mg/dL [facility] Comment: ?Fasting* Glucose Interpretive C riteria Normal [...] of Diabetes Mellitus, Position Statement from the [place] Diabetes Association. ??Diabete s Care, Volume 33, Supplement 1, Aug 2009 BUN 10 10 - 20 mg/dL CERNER MILLENNIU M Creatinine 0.94 0.80 - 1.50 mg/dL CERNER MILL ENNIUM Comment: Please note that the pediatric reference intervals supplied above were not validated at [facility]. Results from pediatri c patients [...] the following links into your internet browser. http://Lifebooker.com/DHnkdep http://[employer] PRE[employer] MEDICINE.[employer]/DHMCnkf Specimen Anatomical Collection Method Collection Time Receive d Time (Source) Location / / Volume Laterality Blood specimen 08/16/2014 9:02 AM 014 9:08 (specimen) EST AM EST Resulting Agency Comment Spec In Lab Eriberto Melgar MD CHEMISTRY ORDERABLES Performing Organization Address City/[facility]/ZIP Code Phon e Number [address] CERNER MILLENNIUM U24 Hrs [...] Performing Organization Address City/[facility]/ZIP Code Phon e Number [address] CERNER MILLENNIUM Uric acid, [...] Performing Organization Address City/[facility]/ZIP Code Phon e Number [address] CERNER MILLENNIUM Phosphorus, urine, [...] Address City/State/ZIP Code Phon e Number [address] CERNER MILLENNIUM Calcium, urine, [...] Performing Organization Address City/[facility]/ZIP Code Phon e Number [address] CERNER MILLENNIUM (ABNORMAL) Creatinine [...] Address City/State/ZIP Code Phon e Number [address] CERNER MILLENNIUM (ABNORMAL) Creatinine, urine, 24 hour (08/16/2014 5:41 AM EST) Analysis Performed At Patho logist Time Signature U24 Creat Conc 49 mg/dL CERNER [facility] U24 Creat Calc 2.01 (H) 0.80 - CERNER 1.90 MILLENNIUM gm/24hr Specimen Anatomical Collection Method Collection Time Receive d Time (Source) Location / / Volume Laterality Urine specimen 08/16/2014 5:41 AM 014 9:48 (specimen) EST AM EST Resulting Agency Comment Spec In Lab Eriberto Melgar MD URINE ORDERABLES Performing Organization Address City/State/ZIP Code Phon e Number [address] [facility] (ABNORMAL) Protein, urine, 24 hour (08/16/2014 5:41 AM EST) Patholo gist Method Time Signature U24 Prot Conc <6 <=80 mg/dL [facility] U24 Prot Calc <0.25 (H) <=0.15 CERNER gm/24hr MILLENNIUM Specimen Anatomical Collection Method Collection Time Receive d Time (Source) Location / / Volume Laterality Urine specimen 08/16/2014 5:41 AM 014 9:48 (specimen) EST AM EST Resulting Agency Comment Spec In Lab Eriberto Melgar MD URINE ORDERABLES Performing Organization Address City/State/ZIP Code Phon e Number [address] [facility] documented in this encounter Visit Diagnoses Diagnosis Kidney replaced by transplant 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
--- OUTSIDE RECORDS SUMMARY | 2022-04-04 00:48 | XMS_ITS | Encounter Summary ---
:1965 Author Organization [facility] [place] [address] Care Team Providers Name Role Phone Anna Mullen MD Primary Care Provider Encounter Details Date Type Department Care Team Description 09/01/2014 Hospital Encounter Laboratory [facility] [place] [phone] TRANSPLANT SURGE [place], [place] [address] (Wo rk) Social History Tobacco [...] 100 each 12 06/26/2014 1 10/14/[address] [facility] medical for testing supplies 4 [...] EST) athologist Signature Tacrolimus Lvl 6.0 ng/mL [facility] Comment: Trough therapeutic: 5-15 ng/mL Specimen Anatomical Collection Method Collection Time Receive d Time (Source) Location / / Volume Laterality Blood specimen Venous Draw / 09/01/2014 9:00 AM 2014 8:01 (specimen) Unknown EST AM EST Resulting Agency Comment Spec In Lab Eriberto Melgar MD CHEMISTRY ORDERABLES Performing Organization Address City/State/[place] [address] [facility] documented in this encounter Visit Diagnoses Not on filedocumented in this encounter Care Teams Television And Radio Repairer Relationship Specialty Start Date End Date Anna Mullen MD PCP - General 12/03/10 [address] [place] [address] documented as of this encounter
--- OUTSIDE RECORDS SUMMARY | 2022-04-04 00:48 | XMS_ITS | Encounter Summary ---
:1965 Author Organization [facility] [address] Care Team Providers Name Role Phone Meaghan Mullen MD Primary Care Provider Encounter Details Date Type Department Care Team Description 10/24/2014 Hospital Encounter Gastroenterology at [facility] Meaghan Rapp, [facility] [place] [address] [facility] [phone] CENTER GASTROENTEROLOGY DEPT. [place], [place] [address] Social History Tobacco Use Types [...] you need to be checked. Thursday[facility] [phone] 8a-5p Same Day Endo [phone] 7a-8p Otherwise contact [phone] and ask to speak to the electric shaver mechanic industrial relations manager Follow up care is a du part [...] times daily. Diabetic Supplies, Fax form to [facility] 100 each 12 06/26/2014 1 10/14/2014 Miscellan. [facility] medical for testing supplies 4 times per [...] SHUKLA : 1965 Age: 49 y.o. Address: [address] [place] [phone] (home) [phone] (work) Mobile: No relevant phone numbers on [...] ENDOSCOPY performed by CLAYTON BHAKTA at [facility] ENDOSCOPY ??? Upper gi endoscopy, biopsy 12/31/2011 UPPER GASTROINTESTINAL ENDOSCOPY,WITH BIOPSY SINGLE OR MULTIPLE performed by CLAYTON BHAKTA at [facility] ENDOSCOPY ??? Shoulder surgery ??? Carpal tunnel release ??? Appendectomy ??? Musculoskeletal surgery unlisted 10 years carpel tunnel ??? 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 Transplant allograft pancreas 08/28/2013 @PANCREATIC TRANSPLANT performed by Iraj Keller MD at [facility] MAIN OR ??? Transplant, prep donor pancreas 08/28/2013 @PREPARATION CADAVERIC PANCREAS, STANDARD performed by Iraj Keller MD at [facility] MAIN OR Medications: Prior to Admission medications [...] daily. 07/31/14 Kj Alexandra MD Diabetic Supplies, [facility]. [facility] Fax form to [facility] medical for testing supplies 4 [...] Rapp MD - 10/25/2014 7:45 PM EST [facility] Operative Note Patient Name: Reese Shukla : [id number] See Provation procedure note. Meaghan Rapp MD [...] Method Time Signature Surgical CERNER Pathology ? [facility] Report ? Provider: ?? MEAGHAN RAPP ?Pt. Name: ?? RAPHAEL CAMACHO, REESE Guillen ? Acc #: ?[id number] ?Pt. MRN: ?[id number] ? Col Date: ?? 5 ? /Sex: [...] Organization Address City/State/[place] [address] CERNER MILLENNIUM Specimen to [...] [facility]/[place] [address] CERNER MILLENNIUM COLONOSCOPY (10/24/2014 2:12 PM EST) Component Value Ref Test Analysis Performed At [facility] Range Method Time Signature COLONOSCOPY [facility] Endoscopy Patient Name: Reese Shukla ? Procedure Date: 10/24/2014 2:12 PM ? Date of : 1965 ? Age: 49 ? Order #: [id number] ? Procedure: ? Colonoscopy Indications: ? personal history of polyps, diarr hea Providers: ? Meaghan Rapp MD, Rajat Zamora, ? RN, Yesica Mayo, Can Top Setter Referring MD: ?Meaghan Mullen MD Medicines: ? [...] Provider: Rajat Zamora RN)1437 (Given - Provider: aRjat Zamora RN)1442 (Given - Provider: Rajat Zamora RN) ONCE PRN, Starting 10/24/14 at 1425, Until Tu10/24/14 at 1610, Intra- Operative (Intra-Procedure), Routine documented in this encounter Care Teams Engineering Recruiter Relationship Specialty Start Date End Date Meaghan Mullen MD PCP - General 12/03/10 [address] [place] [address] documented as of this encounter
--- OUTSIDE RECORDS SUMMARY | 2022-04-04 00:48 | XMS_ITS | Encounter Summary ---
:1965 Author Organization [facility] [place] [address] Care Team Providers Name Role Phone Meaghan Mullen MD Primary Care Provider Encounter Details Date Type Department Care Team Description 10/24/2014 Surgery Gastroenterology at [facility] Meaghan Rapp MD COLONOSCOPY, [place] [address] GASTROENTEROLOGY DEPT. [place], [place] [address] Social History Tobacco Use Types [...] you need to be checked. Thursday-Thursday Clinic [phone] 8a-5p Same Day Endo [phone] 7a-8p Otherwise contact [phone] and ask to speak to the table worker commonwealth attorney Follow up care is a du part [...] times daily. Diabetic Supplies, Fax form to [facility] 100 each 12 06/26/2014 1 10/14/2014 Plasmonixcellan. [facility] medical for testing supplies 4 times per [...] SHUKLA : 1965 Age: 49 y.o. Address: [address] [place] [phone] (home) [phone] (work) Mobile: No relevant phone numbers on [...] daily. 07/31/14 Kj Alexandra MD Diabetic Supplies, [facility]. [facility] Fax form to [facility] medical for testing supplies 4 times [...] Rapp MD - 10/25/2014 7:45 PM EST [facility] Operative Note Patient Name: Reese Shukla : [id number] See Provation procedure note. Meaghan Rapp MD [...] Surgical Pathology Report (10/24/2014 3:01 PM EST) [facility] gist Method Time Signature Surgical CERNER Pathology ? [facility] Report ? Provider: ?? MEAGHAN RAPP ?Pt. Name: ?? RAPHAEL COXNiki, REESE Guillen ? Acc #: ?[id number] ?Pt. MRN: ?[id number] ? Col Date: ?? 5 ? /Sex: [...] Organization Address City/State/[place] [address] [facility] Specimen to Pathology (surgical or derm) (10/24/2014 3:01 PM EST) Specimen Anatomical Collection Method Collection Time Receive d Time (Source) Location / / Volume Laterality AP Specimen 10/24/2014 3:01 PM 5 3:01 EST PM EST Narrative CERNER MILLENNIUM - 10/24/2014 3:[address] Specimen requisition ordered. ??Separate Pathology report to follow Meaghan Rapp MD PATHOLOGY/CYTOLOGY ORDERABLE S Performing Organization Address City/[facility]/[place] [address] CERNER MILLENNIUM COLONOSCOPY (10/24/2014 2:12 PM EST) Component Value Ref Test Analysis Performed At [facility] Range Method Time Signature COLONOSCOPY [facility] PROVATION Endoscopy Patient Name: Reese Shukla ? Procedure Date: 10/24/2014 2:12 PM ? Date of : 1965 ? Age: 49 ? Order #: [id number] ? Procedure: ? Colonoscopy Indications: ? personal history of polyps, diarr hea Providers: ? Meaghan Rapp MD, Rajat Zamora, ? RN, Yesica Mayo, Scroll Shear Operator Referring MD: ?Meaghan Mullen MD Medicines: ? [...] Routine documented in this encounter Care Teams Network/Telecom Engineer Relationship Specialty Start Date End Date Meaghan Mullen MD PCP - General 12/03/10 [address] [place] [address] documented as of this encounter
--- OUTSIDE RECORDS SUMMARY | 2022-04-04 00:48 | XMS_ITS | Encounter Summary ---
:1965 Author Organization [facility] [place] [address] Care Team Providers Name Role Phone Anna Mullen MD Primary Care Provider Reason for Visit Reason Comments Medication Refill Encounter Details Date Type Department Care Team Description 05/29/2015 Refill Solid Organ Transplant at [facility] [place] [address] [place] [address] [phone] (Wo rk) Social History Tobacco Use Types [...] on filedocumented in this encounter Care Teams Parimutuel Clerk Relationship Specialty Start Date End Date Anna Mullen MD PCP - General 12/03/10 [address] [place] [address] documented as of this encounter
--- OUTSIDE RECORDS SUMMARY | 2022-04-04 00:48 | XMS_ITS | Encounter Summary ---
:1965 Author Organization [facility] [address] Care Team Providers Name Role Phone Anna Mullen MD Primary Care Provider Reason for Visit Reason Comments Medication Refill Encounter Details Date Type Department Care Team Description 05/09/2015 Refill Solid Organ Transplant at Davina bullard, Kj Rey MD [facility] sagee [place] [address] [place] [address] [phone] (Wo rk) Social History Tobacco Use Types [...] on filedocumented in this encounter Care Teams Religious Healer Relationship Specialty Start Date End Date Anna Mullen MD PCP - General 12/03/10 [address] [place], [place] [address] documented as of this encounter
--- OUTSIDE RECORDS SUMMARY | 2022-04-04 00:48 | XMS_ITS | Encounter Summary ---
:1965 Author Organization [facility] [place] [address] Care Team Providers Name Role Phone Anna Mullen MD Primary Care Provider Encounter Details Date Type Department Care Team Description 05/01/2015 Hospital Encounter Laboratory Talia [facility] [place] [address] TRANSPLANT SURGE [place], [place] [address] (Wo rk) Social History Tobacco [...] times daily. Diabetic Supplies, Fax form to [facility] 100 each 12 06/26/2014 1 10/14/2014 [facility] Care[facility]. [facility] medical for testing supplies 4 times per [...] Lavender Tube HOLD (05/01/2015 7:40 AM EDT) [facility] Method Time Signature Lavender Hold Sample in [facility] lab. [facility] Specimen Anatomical Collection Method Collection Time Receive d Time (Source) Location / / Volume Laterality Blood specimen Venous Draw / 05/01/2015 7:40 AM 2014 8:39 (specimen) Unknown EDT PM EDT Eriberto Melgar MD HEMATOLOGY ORDERABLES Performing Organization Address City/[facility]/ZIP [facility] Phon e Number [address] [facility] Tacrolimus level (05/01/2015 7:40 AM EDT) athologist Signature Tacrolimus Lvl 6.1 ng/mL [facility] Comment: Trough therapeutic: 5-15 ng/mL Specimen Anatomical Collection Method Collection Time Receive d Time (Source) Location / / Volume Laterality Blood specimen Venous Draw / 05/01/2015 7:40 AM 2014 8:00 (specimen) Unknown EDT AM EDT Resulting Agency Comment Spec In Lab Eriberto Melgar MD CHEMISTRY ORDERABLES Performing Organization Address City/[facility]/ZIP Code Phon e Number [address] [facility] documented in this encounter Visit Diagnoses Not on filedocumented in this encounter Care Teams Continuous Miner Operator Relationship Specialty Start Date End Date Anna Mullen MD PCP - General 12/03/10 [address] [place] [address] documented as of this encounter
--- OUTSIDE RECORDS SUMMARY | 2022-04-04 00:48 | XMS_ITS | Encounter Summary ---
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 He did undergo spine surgery at [facility] few weeks ago which seemed [...] Yes Kj Alexandra MD [facility] medical for testing supplies 4 [...] Appearance UA Latest Range: Clear Clear Spec [place] UA Latest Range: 1.002-1.030 1.012 pH UA [...] Talia Mcgarry MD Nephrology Fellow Pager # [phone] I examined the patient, reviewed all of [...] Organization Address City/State/[place] [address] CERNER MILLENNIUM Urinalysis with [...] UA Clear Clear CERNER MILLENNIU M Spec [place]ivar UA 1.012 1.002 - 1.030 CERNER MIL [...] Organization Address City/State/ZIP Code Phon e Number [place] [phone]OS[address] CERNER MILLENNIUM Differential, Automated [...] Organization Address City/State/[place] [address] CERNER MILLENNIUM (ABNORMAL) Hemogram [...] Organization Address City/State/[place] [address] CERNER MILLENNIUM Amylase (03/07/2015 [...] City/[facility]/ZIP Code Phon e Number [address] CERNER MILLENNIUM Lipase (03/07/2015 8:32 AM EDT) athologist Signature Lipase 20 0 - 60 CERNER unit/L MILLENNIUM Specimen Anatomical Collection Method Collection Time Receive d Time (Source) Location / / Volume Laterality Blood specimen 03/07/2015 8:32 AM 015 8:51 (specimen) EDT AM EDT Resulting Agency Comment Spec In Lab Eriberto Melgar MD CHEMISTRY ORDERABLES Performing Organization Address City/[facility] Phon e Number [address] CERNER MILLENNIUM (ABNORMAL) Comprehensive [...] intervals supplied above were not validated at [facility]. Results from pediatri c patients should be [...] the following links into your internet browser. [email or web address] [email or web address] Specimen Anatomical Collection Method Collection Time Receive d Time (Source) Location / / Volume Laterality Blood specimen 03/07/2015 8:32 AM 015 8:51 (specimen) EDT AM EDT Resulting Agency Comment Spec In Lab Eriberto Melgar MD CHEMISTRY ORDERABLES Performing Organization Address City/[facility]/ZIP Code Phon e Number [place] [phone] CERNER MILLENNIUM Magnesium (03/07/2015 [...] City/[facility]/[place] [address] CERNER MILLENNIUM Phosphorus (03/07/2015 [...] Organization Address City/State/ZIP Code Phon e Number [address] CERNER MILLENNIUM Uric acid (03/07/2015 8:32 AM EDT) athologist Signature Uric Acid 5.7 3.5 - 8.5 CERNER mg/dL [facility] Specimen Anatomical Collection Method Collection Time Receive d Time (Source) Location / / Volume Laterality Blood specimen 03/07/2015 8:32 AM 015 8:51 (specimen) EDT AM EDT Resulting Agency Comment Spec In Lab Eriberto Melgar MD CHEMISTRY ORDERABLES Performing Organization Address City/State/ZIP Code Phon e Number [address] [facility] Tacrolimus level (03/07/2015 8:32 AM EDT) athologist Signature Tacrolimus Lvl 6.8 ng/mL [facility] Comment: Trough therapeutic: 5-15 ng/mL Specimen Anatomical Collection Method Collection Time Receive d Time (Source) Location / / Volume Laterality Blood specimen 03/07/2015 8:32 AM 015 (specimen) EDT 12:13 PM EDT Resulting Agency Comment Spec In Lab Eriberto Melgar MD CHEMISTRY ORDERABLES Performing Organization Address City/State/[place] [address] CERNER MILLENNIUM (ABNORMAL) Reticulocyte [...] City/[facility]/ZIP Code Phon e Number [address] CERNER MILLENNIUM Cholesterol, total [...] ORDERABLES Performing Organization Address City/[facility]/ZIP [facility] Phon e Number [address] CERNER MILLENNIUM documented in this encounter Visit Diagnoses Diagnosis 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
--- OUTSIDE RECORDS SUMMARY | 2022-04-04 00:48 | XMS_ITS | Encounter Summary ---
:1965 Author Organization [facility] [place] [address] Care Team Providers Name Role Phone Anna Mullen MD Primary Care Provider Encounter Details Date Type Department Care Team Description 02/05/2015 Abstract Transplant Eriberto Melgar MD [facility] [place] [address] TRANSPLANT SURGERY [phone] [place] [address] (Wo rk) Social History Tobacco Use Types [...] on filedocumented in this encounter Care Teams Bug Trimmer Relationship Specialty Start Date End Date Anna Mullen MD PCP - General 12/03/10 [address] [place] [address] documented as of this encounter
--- OUTSIDE RECORDS SUMMARY | 2022-04-04 00:48 | XMS_ITS | Encounter Summary ---
:1965 Author Organization [facility] [place] [address] Care Team Providers Name Role Phone Anna Mullen MD Primary Care Provider Reason for Visit Reason Comments Other Encounter Details Date Type Department Care Team Description 08/23/2014 Telephone Solid Organ Transpla nt at [facility] Juany Gorman, [place] [address] Social History Tobacco Use Types Packs/Day [...] me and expressed understanding. Juany Gorman, RN [phone] (Pager: [phone]) documented in this encounter Plan of Treatment Not on filedocumented as of this encounter Visit Diagnoses Not on filedocumented in this encounter Care Teams Equine Pharmacology Technician Relationship Specialty Start Date End Date Anna Mullen MD PCP - General 12/03/10 [address] [place] [address] documented as of this encounter
--- OUTSIDE RECORDS SUMMARY | 2022-04-04 00:48 | XMS_ITS | Encounter Summary ---
:1965 Author Organization [facility] [place] [address] Care Team Providers Name Role Phone Anna Mullen MD Primary Care Provider Encounter Details Date Type Department Care Team Description 11/01/2014 Hospital Encounter Laboratory Talia [facility] [place] [address] TRANSPLANT SURGE [place], [place] [address] (Wo rk) Social History Tobacco [...] times daily. Diabetic Supplies, Fax form to [facility] 100 each 12 06/26/2014 1 10/14/2014 [employer] Designcellan. [facility] medical for [...] Melgar MD HEMATOLOGY ORDERABLES Performing Organization Address City/[facility]/[place] [address] [facility] Tacrolimus level (11/01/2014 7:45 AM EST) P athologist Signature Tacrolimus Lvl 13.1 ng/mL [facility] ElectronicsVETERANS HEALTH ADMINIST[facility] PH[facility]ENIX[facility]UM Comment: Trough therapeutic: 5-15 ng/mL Specimen Anatomical Collection Method Collection Time Receive d Time (Source) Location / / Volume Laterality Blood specimen Venous Draw / 11/01/2014 7:45 AM 2014 7:52 (specimen) Unknown EST AM EST Resulting Agency Comment Spec In Lab Eriberto Melgar MD CHEMISTRY ORDERABLES Performing Organization Address City/[facility]/ZIP Code Phon e Number [address] [facility] documented in this encounter Visit Diagnoses Not on filedocumented in this encounter Care Teams Manager Interventional Relationship Specialty Start Date End Date Anna Mullen MD PCP - General 12/03/10 [address] [place] [address] documented as of this encounter
--- OUTSIDE RECORDS SUMMARY | 2022-04-04 00:48 | XMS_ITS | Encounter Summary ---
:1965 Author Organization [facility] [place] [address] Care Team Providers Name Role Phone Anna Mullen MD Primary Care Provider Encounter Details Date Type Department Care Team Description 04/02/2015 Hospital Encounter Laboratory Talia [facility] [place] [address] TRANSPLANT SURGE [place], [place] [address] (Wo rk) Social History Tobacco [...] times daily. Diabetic Supplies, Fax form to [facility] 100 each 12 06/26/2014 1 10/14/2014 [facility]. [facility] medical for testing supplies 4 times per [...] Tube HOLD (04/02/2015 8:05 AM EDT) [facility] Method Time Signature Lavender Hold Sample in [facility] lab. [facility] Specimen Anatomical Collection Method Collection Time Receive d Time (Source) Location / / Volume Laterality Blood specimen Venous Draw / 04/02/2015 8:05 AM 2014 8:56 (specimen) Unknown EDT PM EDT Eriberto Melgar MD HEMATOLOGY ORDERABLES Performing Organization Address City/[facility]/ZIP [facility] Phon e Number [address] [facility] Tacrolimus level (04/02/2015 8:05 AM EDT) P athologist Signature Tacrolimus Lvl 5.0 ng/mL [facility] Comment: Trough therapeutic: 5-15 ng/mL Specimen Anatomical Collection Method Collection Time Receive d Time (Source) Location / / Volume Laterality Blood specimen Venous Draw / 04/02/2015 8:05 AM 2014 8:09 (specimen) Unknown EDT AM EDT Resulting Agency Comment Spec In Lab Eriberto Melgar MD CHEMISTRY ORDERABLES Performing Organization Address City/[facility]/ZIP Code Phon e Number [address] [facility] documented in this encounter Visit Diagnoses Not on filedocumented in this encounter Care Teams Modeling Agency Manager Relationship Specialty Start Date End Date Anna Mullne MD PCP - General 12/03/10 [address] [place] [address] documented as of this encounter
--- OUTSIDE RECORDS SUMMARY | 2022-04-04 00:48 | XMS_ITS | Encounter Summary ---
:1965 Author Organization [employer] Address [facility] [place] [address] Care Team Providers Name Role Phone Anna Mullen MD Primary Care Provider Reason for Visit Reason Comments GI Problem Consultation (Routine) - Closed Specialty Diagnoses / Procedures Referred By Contact Refer red To Contact Gastroenterology Diagnoses epigastric discomfort, nausea/vomiting Anna Mullen MD Lacy, Brian E, MD [address] [facility] [address] [place] [address] Phone: Fax: Referral ID Status Reason Start Date Expiration Date Visits V isits Requested Authorized [id number] Closed Consult, 07/24/2015 07/23/2016 1 1 [facility] Encounter Details Date Type Department Care Team Description 08/13/2015 Office Visit Gastroenterology at [facility] Mauricio Gonsalez, Chronic abdominal pain; [facility] Unique pham MD Refractory nausea and vomiting; [place] [address] [facility] [employer] Weight loss; [phone] CENTER H/O gastroesophageal reflux (GERD) [place] [address] Social History Tobacco Use Types Packs/Day Years [...] 1965 , SR None PCP: Anna Mullen FORMULA MAKER: NONE REFERRING PROVIDER(S) Anna Mullen MD REASON FOR CONSULTATION The issues are those of nausea and vomiting and abdominal pain. TIME SPENT WITH PATIENT I spent 60 minutes reviewing records with the patient in addition to interviewing and examining the patient. Greater than 45 minutes were spent in direct, [id number] counseling and coordination of care. HISTORY OF PRESENT ILLNESS This is a very nice 49-year-old man sent for formal consultation in gastroenterology. The patient's medical history is fairly complicated. He was seen there for a third opinion in July 2009. His symptoms were those of epigastric pain, early satiety, abdominal bloating, nausea, and vomiting. He had previously been seen at [facility]. His symptoms were thought due to diabetic [...] biopsies. 3. Four-hour, solid-phase gastric emptying scan, [facility], 07/11/09: revealed 39% remaining at four hours. 4. EGD 07/08/09, [facility]: gastritis noted; normal small-bowel biopsies, H. pylori negative, retained food in stomach. 5. Colonoscopy 10/24/14, [facility]: normal ileum. Stool from hepatic flexure to [...] tests noted above. Mauricio Gonsalez, PhD, MD glove stitcher, [facility] [employer] Chief, Section of Gastroenterology and Hepatology [facility] [place] [address] V: [phone] F: [phone] TORIE/balwinder EC/CC: PCP - staff msg copy 08/17/15 [facility] GI Hydraulic Engineer - staff msg copy 08/17/15 documented in this encounter Plan of Treatment Not on filedocumented as of this encounter Visit Diagnoses Diagnosis Chronic abdominal pain Abdominal pain, unspecified site Refractory nausea and vomiting Nausea with vomiting Weight loss Loss of weight H/O gastroesophageal reflux (GERD) Personal history of other diseases of di gestive system documented in this encounter Care Teams Dish Network Installer Relationship Specialty Start Date End Date Anna Mullen MD PCP - General 12/03/10 [address] [place] [address] documented as of this encounter
--- OUTSIDE RECORDS SUMMARY | 2022-04-04 00:48 | XMS_ITS | Encounter Summary ---
:1965 Author Organization [facility] [place] [address] Care Team Providers Name Role Phone Anna Mullen MD Primary Care Provider Encounter Details Date Type Department Care Team Description 02/28/2015 Hospital Encounter Laboratory Talia [facility] [place] [address] TRANSPLANT SURGE [place], [place] [address] (Wo rk) Social History Tobacco [...] daily. Diabetic Supplies, Fax form to [facility] 100 each 12 06/26/2014 1 10/14/2014 [employer]cellan. [facility] medical for testing supplies 4 times per [...] EDT) athologist Signature Tacrolimus Lvl 5.9 ng/mL [facility] Comment: Trough therapeutic: 5-15 ng/mL Specimen Anatomical Collection Method Collection Time Receive d Time (Source) Location / / Volume Laterality Blood specimen Venous Draw / 02/28/2015 7:15 AM 2014 8:17 (specimen) Unknown EDT AM EDT Resulting Agency Comment Spec In Lab Eriberto Melgar MD CHEMISTRY ORDERABLES Performing Organization Address City/State/Z[place] [address] [facility] documented in this encounter Visit Diagnoses Not on filedocumented in this encounter Care Teams Gun Stock Checker Relationship Specialty Start Date End Date Anna Mullen MD PCP - General 12/03/10 [address] [place] [address] documented as of this encounter
--- OUTSIDE RECORDS SUMMARY | 2022-04-04 00:48 | XMS_ITS | Encounter Summary ---
:1965 Author Organization [facility] [place] [address] Care Team Providers Name Role Phone Anna Mullen MD Primary Care Provider Encounter Details Date Type Department Care Team Description 09/12/2014 External Results [place] [address] Social History Tobacco Use Types Packs/Day [...] Procedure Name Priority Date/Time Associated Diagnosis Comme [facility] TRANSPLANT FOLLOW UP LABS Routine 09/01/2014 EXTERNAL RESULTS PANEL documented in this encounter Results Transplant: Follow up lab request - External Results (09/01/2014) Narrative This result has an attachment that is no t available. Historical Provider CHEMISTRY ORDERABLES documented in this encounter Visit Diagnoses Not on filedocumented in this encounter Care Teams Splicing Machine Operator Automatic Relationship Specialty Start Date End Date Anna Mullen MD PCP - General 12/03/10 [address] [place], [place] [address] documented as of this encounter
--- OUTSIDE RECORDS SUMMARY | 2022-04-04 00:48 | XMS_ITS | Encounter Summary ---
:1965 Author Organization [facility] [place] [address] Care Team Providers Name Role Phone Anna Mullen MD Primary Care Provider Encounter Details Date Type Department Care Team Description 12/04/2014 Hospital Encounter Laboratory Eriberto Melgar [facility] [place] [address] TRANSPLANT SURGE [place], [place] [address] (Wo rk) Social History Tobacco [...] times daily. Diabetic Supplies, Fax form to [facility] 100 each 12 06/26/2014 1 10/14/2014 [place]. [facility] [...] EDT) athologist Signature Tacrolimus Lvl 7.7 ng/mL [facility] Comment: Trough therapeutic: 5-15 ng/mL Specimen Anatomical Collection Method Collection Time Receive d Time (Source) Location / / Volume Laterality Blood specimen Venous Draw / 12/04/2014 8:00 AM 2014 7:59 (specimen) Unknown EDT AM EDT Resulting Agency Comment Spec In Lab Eriberto Melgar MD CHEMISTRY ORDERABLES Performing Organization Address City/State/[place] [address] [facility] documented in this encounter Visit Diagnoses Not on filedocumented in this encounter Care Teams Meat Puller Relationship Specialty Start Date End Date Anna Mullen MD PCP - General 12/03/10 [address] [place] [address] documented as of this encounter
--- OUTSIDE RECORDS SUMMARY | 2022-04-04 00:49 | XMS_ITS | Encounter Summary ---
:1965 Author Organization [facility] [place] [address] Care Team Providers Name Role Phone Anna Mullen MD Primary Care Provider Reason for Visit Reason Comments Pancreas Transplant Follow-up Encounter Details Date Type Department Care Team Description 06/14/2014 Follow-Up Solid Organ Transplant Eriberto Melgar Need for prophylactic immunotherapy; at [facility] MD Arlyn Status post pancreas transplantation; [facility] Ins omnia, unspecified [place] [address] TRANSPLANT SURGERY [phone] [place], [place] [address] (Wo rk) Social History Tobacco [...] Melgar MD - 06/09/2014 8:39 AM EDT [facility] Transplant Nephrology Follow Up Date: 06/15/2014 Patient: Richard Hsu Transplant Date: 08/28/13 Organ(s) Pancreas [place] organ diagnosis: Diabetes Mellitus - Type I [...] virus only) ??? Hepatitis C Screening (B. [id number]) ??? Pneumovax Q5 years ??? Yearly ophthalmology [...] GI ENDOSCOPY performed by CLAYTON BHAKTA at [facility] ENDOSCOPY ??? Upper gi endoscopy, biopsy 12/31/2011 UPPER GASTROINTESTINAL ENDOSCOPY,WITH BIOPSY SINGLE OR MULTIPLE performed by CLAYTON BHAKTA at [facility] ENDOSCOPY ??? Shoulder surgery ??? Carpal tunnel release ??? Appendectomy ??? Musculoskeletal surgery unlisted 10 years carpel tunnel ??? 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 Transplant allograft pancreas 08/28/2013 @PANCREATIC TRANSPLANT performed by Iraj Keller MD at [facility] MAIN OR ??? Transplant, prep donor pancreas 08/28/2013 @PREPARATION CADAVERIC PANCREAS, STANDARD performed by Iraj Keller MD at [facility] MAIN OR Family History Problem Relation [...] Diabetic Supplies, Miscellan. Misc Fax form to [facility] for testing supplies 10 times per [id number] each 12 ??? levothyroxine (SYNTHROID) 175 mcg [...] primary infection with EBV. Test Performed by: [employer] [place] [address] Data Coder Operator: Sarita Beach, Ph.D. 01/21/2012 1615 EBVIGGAB Pos* [...] Urinalysis without microscopic (06/14/2014 8:13 AM EDT) [facility] Method Time Signature Glucose UA [...] UA Clear Clear CERNER MILLENNIU M Spec [place] UA 1.005 1.002 - 1.030 CERNER MIL LENNIUM Color UA Straw Yellow CERNER MILLENNIUM Specimen Anatomical Collection Method Collection Time Receive d Time (Source) Location / / Volume Laterality Urine specimen 06/14/2014 8:13 AM 014 8:20 (specimen) EDT AM EDT Resulting Agency Comment Spec In Lab Eriberto Melgra MD URINE ORDERABLES Performing Organization Address City/State/ZIP Code Phon e Number [place] [phone] CERNER MILLENNIUM BK Quant Blood Result (06/14/2014 8:10 AM EDT) Component Value Ref Test Analysis Performed At [facility] Range Method Time Signature BKV Blood Not Detected CERNER Result MILLENNIUM BKV Blood BK Virus Blood Result Interpretation CERNER Interp MILLENNIUM Result: BK Virus not detected log concentration (copies/mL): ??Not detected Assay Range: ??plasma: 3.04-9.04 log undercover cop ies/mL (1.1x10^3 - 1.1x10^9 copies/mL) Results are reported as log copies/mL. ??Changes of less than 1.0 log between serial samples may not be clinically significant. Methods: Quantitative real-time polymerase chain react ion (PCR) of viral DNA isolated from plasma was performed using TOK.tv BKV (ASR) re agents and the [employer] 7500 FAST Real-Time PCR System. In additi on, the ??PCR product sequence is confirmed using physical properties (bria ting curve analysis). This test was developed and its performance determined by the [facility] Molecular Pathology Laboratory. It has not been [...] Organization Address City/State/ZIP Code Phon e Number [place] [phone] CERNER MILLENNIUM Differential, Automated [...] Organization Address City/State/[place] [address] CERNER MILLENNIUM (ABNORMAL) Hemogram [...] Melgar MD HEMATOLOGY ORDERABLES Performing Organization Address City/[facility]/ZIP Code Phon e Number [address] CERNER MILLENNIUM Lipase (06/14/2014 8:10 AM EDT) P athologist Signature Lipase 21 0 - 60 CERNER unit/L MILLENNIUM Specimen Anatomical Collection Method Collection Time Receive d Time (Source) Location / / Volume Laterality Blood specimen 06/14/2014 8:10 AM 014 8:15 (specimen) EDT AM EDT Resulting Agency Comment Spec In Lab Eriberto Melgar MD CHEMISTRY ORDERABLES Performing Organization Address City/[facility]/ZIP Code Phon e Number [address] CERNER MILLENNIUM Amylase (06/14/2014 8:10 AM EDT) P athologist Signature Amylase 66 28 - 100 CERNER unit/L MILLENNIUM Specimen Anatomical Collection Method Collection Time Receive d Time (Source) Location / / Volume Laterality Blood specimen 06/14/2014 8:10 AM 014 8:15 (specimen) EDT AM EDT Resulting Agency Comment Spec In Lab Eriberto Melgar MD CHEMISTRY ORDERABLES Performing Organization Address City/[facility]/ZIP Code Phon e Number [address] CERNER MILLENNIUM Magnesium (06/14/2014 8:10 AM EDT) P athologist Signature Magnesium 0.71 0.69 - 1.07 CERNER mmol/L MILLENNIUM Specimen Anatomical Collection Method Collection Time Receive d Time (Source) Location / / Volume Laterality Blood specimen 06/14/2014 8:10 AM 014 8:15 (specimen) EDT AM EDT Resulting Agency Comment Spec In Lab Eriberto Melgar MD CHEMISTRY ORDERABLES Performing Organization Address City/State/[facility] [place] [address] CERNER MILLENNIUM Cholesterol, total [...] Melgar MD CHEMISTRY ORDERABLES Performing Organization Address City/[facility]/[place] [address] CERNER MILLENNIUM Uric acid (06/14/2014 8:10 AM EDT) P athologist Signature Uric Acid 5.8 3.5 - 8.5 CERNER mg/dL MILLENNIUM Specimen Anatomical Collection Method Collection Time Receive d Time (Source) Location / / Volume Laterality Blood specimen 06/14/2014 8:10 AM 014 8:15 (specimen) EDT AM EDT Resulting Agency Comment Spec In Lab Eriberto Melgar MD CHEMISTRY ORDERABLES Performing Organization Address City/[facility]/[place] [address] CERNER MILLENNIUM Phosphorus (06/14/2014 [...] Organization Address City/State/[place] [address] CERNER MILLENNIUM Tacrolimus level [...] Melgar MD CHEMISTRY ORDERABLES Performing Organization Address City/[facility]/ZIP Code Phon e Number [address] CERNER MILLENNIUM (ABNORMAL) Reticulocyte Count (06/14/2014 8:10 AM EDT) [facility] gist Method Time Signature Retic Ct % [...] Melgar MD HEMATOLOGY ORDERABLES Performing Organization Address City/[facility]/ZIP Code Phon e Number [address] CERNER MILLENNIUM (ABNORMAL) Comprehensive [...] intervals supplied above were not validated at [facility]. Results from pediatri c patients should be [...] the following links into your internet browser. [email or web address] Specimen Anatomical Collection Method Collection Time Receive d Time (Source) Location / / Volume Laterality Blood specimen 06/14/2014 8:10 AM 014 8:15 (specimen) EDT AM EDT Resulting Agency Comment Spec In Lab Eriberto Melgar MD CHEMISTRY ORDERABLES Performing Organization Address City/State/[place] [address] [facility] documented in this encounter Visit Diagnoses Diagnosis Need for prophylactic immunotherapy Status post pancreas transplantation 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 Insomnia, unspecified documented in this encounter Care Teams Station Tender Relationship Specialty Start Date End Date Anna Mullen MD PCP - General 12/03/10 [address] [place] [address] documented as of this encounter
--- OUTSIDE RECORDS SUMMARY | 2022-04-04 00:49 | XMS_ITS | Encounter Summary ---
:1965 Author Organization [facility] [place] [address] Care Team Providers Name Role Phone Anna Mullen MD Primary Care Provider Reason for Visit Reason Comments Medication Refill Encounter Details Date Type Department Care Team Description 04/19/2014 Refill Endocrinology at [facility] Divya Hermosillo MD [facility] [place] [address] ENDOCRINOLOGY DEPT. [phone] [place], [place] [address] (Wo rk) Social History Tobacco [...] on filedocumented in this encounter Care Teams Rotary Rig Engine Operator Relationship Specialty Start Date End Date Anna Mullen MD PCP - General 12/03/10 [address] [place], [place] [address] documented as of this encounter
--- OUTSIDE RECORDS SUMMARY | 2022-04-04 00:49 | XMS_ITS | Encounter Summary ---
:1965 Author Organization [place] [place] [address] Care Team Providers Name Role Phone Anna Mullen MD Primary Care Provider Encounter Details Date Type Department Care Team Description 05/31/2014 Office Visit Endocrinology at [facility] Arlyn Coles, H/O pancreas transplant; [facility] Bruce Parra [address] [facility] [place] [address] CENTER [phone] ENDOCRINOLOGY DEPT. [place] [address] Social History Tobacco Use Types Packs/Day Years Used Date Never Smoker Smokeless Tobacco: Never Used Alcohol Use Standard Drinks/Week Comments No 0 (1 standard drink = 0.6 oz pure alcoho l) history of abuse, stopped 1996 Sex Assigned at Date Recorded Male 05/29/2021 11:28 PM EDT documented as of this encounter Last Filed Vital Signs Vital Sign Reading Time Taken Comments Blood Pressure 112/75 05/31/2014 7:53 AM EDT Pulse 66 05/31/2014 7:53 AM EDT Temperature - - Respiratory Rate - - Oxygen Saturation - - Inhaled Oxygen Concentration - - Weight 91 kg (200 lb 9.6 oz) 05/31/2014 7:53 AM EDT Height - - Body Mass Index 27.21 03/07/2014 8:35 AM EDT documented in this encounter Progress Notes Divya Coles MD - 05/28/2014 6:32 PM EDT PRIMARY CARE PROVIDER: Anna Mullen MD CC: [...] 4 ___ 5-8 ___>8 Prescriber: _ MD abelardo Harkins_ALEX Aguirre _ Lise Richards MD _ Nickie Berger MD _x Sandra Coles MD Justification for more than 3 tests a day ___x_ prevent severe hypoglycemia ____ prevent severe hyperglycemia ____ widely fluctuating blood sugars ____ overnight hypoglycemia Duration of need ___ lifetime until ___/___/___ Last Hga1c5.7, 01/11!; 7.4, 09/13; 7.9%, 02/10; 7.6%,09/12 DIABETES REGIMEN:nothing post treansplant COMPLICATIONS: Dentist-05/13 , Eye doctor-05/14 . Microalbumin less than 14, creatinine 0.97,01/11; 1.05, 10/14. He has gastroparesis getting better, but no peripheral neuropathy. 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 Has nonocclusive disease with slightly decreased ejection fraction of 52%. Lipids- total cholesterol 136, 03/13, HDL 52, 09/12, and LDL 73, 09/12. DIABETIC HEALTH MAINTENANCE: Beta-Sigrid: no. Aspirin: 325 mg a day. ARB: no. Statin: no. Flu Shot: 2012. Pneumovax: [address] Mullen.. He is a nonsmoker. TSH 4.97, 02/10, on levothyroxine 175 mg a day.- will increase to levothyroxine 200 mcg/d and separate from magnesium. Brant is doing very well since his pancreas transplant. He still checks his blood sugars a couple of times a day and they usually run 95 to 115. No hypoglycemia and he is very happy with that. 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 DIET: For breakfast, usually cereal. Midmorning, a plain doughnut. For lunch, baloney sandwich. For snack in the afternoon, chips. For supper last night, steak and corn on the cob and no evening snack. He is up-to-date with his eye doctor in 05/2014. Renal function has been fine. He also has primary hypothyroidism and clinically is doing well on his current levothyroxine dose 175 mcg a day. He denies nervousness, irritability, tremor, palpitations, heat intolerance, change in his weight, hair, skin, mood, bowels, myalgias, arthralgias, fatigue, or lethargy. PAST MEDICAL HISTORY: Type 1 diabetes with gastroparesis improving, status post renal transplant with normalization of sugars. 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 PAST SURGICAL HISTORY: Shoulder, carpal tunnel release, appendectomy, pancreas 07/2013. L4-S1 decompression and fusion. Current Outpatient Prescriptions Medication Sig Dispense Refill ??? aspirin 81 mg Tablet, Chewable Take 81 mg by mouth daily. ??? lisinopril (PRINIVIL;ZESTRIL) 20 mg Tablet Take 20 mg by mouth daily. ??? Diabetic Supplies, Miscellan. Misc Fax form to [facility] for testing supplies 10 times per [id number] each 12 ??? levothyroxine (SYNTHROID) 175 mcg [...] Take 1 tablet by mouth daily. ??? tacrolimus (PROGRAF) 1 mg capsule Take 2 capsules by mouth 2 times daily. ??? traMADol (ULTRAM) 50 mg tablet Take 100 mg by mouth 2 times daily. ??? sulfamethoxazole-trimethoprim (BACTRIM;SEPTRA) 400-80 mg per tablet Take 1 tablet by mouth. MON-WED-FRI ??? ondansetron (ZOFRAN) 4 mg tablet Take [...] tablet Take 40 mg by mouth daily. Allergies Allergen Reactions ??? Nexium (Esomeprazole Magnesium) Diarrhea Any acid reflux medication causes severe diarrhea ??? Prilosec (Omeprazole Magnesium) Diarrhea ??? Reglan (Metoclopramide Hcl) TD ??? Simvastatin SOCIAL HISTORY: Nonsmoker. Quit drinking in 1996. , two biologic children, two adopted children, two step children. 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 COMPLETE REVIEW OF SYSTEMS: He has some pyrosis, little bit of nausea related to his antirejection medications, but otherwise he is feeling well. PHYSICAL EXAMINATION: On physical exam, blood pressure 112/75, pulse 66, weight 200. In general, he looks well. His HEENT: Extraocular movements intact. No lid lag or stare. No periorbital edema. His neck is supple. Thyroid gland is barely palpable. Skin: Smooth, warm, and dry. Neurologic Exam: Motor, strength, and tone are normal. Psych: Mood and affect are appropriate. LABORATORY TEST: Hemoglobin A1c 5.7, TSH is pending. IMPRESSION: 1. Diabetes post pancreas transplant. Blood sugar is under excellent control. He will continue to follow in the transplant clinic. 2. Primary hypothyroidism, on levothyroxine. Clinically appears euthyroid. We will await TSH and he will follow regularly with Dr. Mlulen. PLAN: 1. Follow thyroid with Dr. Mullen. Pancreas transplant in the transplant clinic and I will be available if questions come up in the future and flu shot today. Recent Results (from the past 72 hour(s)) HEMOGLOBIN A1C Component Value Range Hemoglobin A1C 5.7 (*) <=5.6 % Est Avg Gluc 117 TSH Component Value Range TSH 0.22 (*) 0.27 - 4.20 mcIU/mL documented in this encounter Plan of Treatment Not on filedocumented as of this encounter Procedures Procedure Name Priority Date/Time Associated Diagnosis Comme nts TSH STAT 05/31/2014 7:21 AM Hypothyroidism Results for this EDT procedure are i n the results section. HEMOGLOBIN A1C STAT 05/31/2014 7:21 AM H/O pancreas transpl ant Results for this EDT procedure are i n the results section. documented in this encounter Results (ABNORMAL) TSH (05/31/2014 7:21 AM EDT) P athologist Signature TSH 0.22 (L) 0.27 - 4.20 CERNER mcIU/mL MILLENNIUM Specimen Anatomical Collection Method Collection Time Receive d Time (Source) Location / / Volume Laterality Blood specimen 05/31/2014 7:21 AM 014 7:33 (specimen) EDT AM EDT Resulting Agency Comment Spec In Lab Divya Coles MD CHEMISTRY ORDERABLES Performing Organization Address City/State/ZIP Code Phon e Number [place] [phone] CERNER MILLENNIUM (ABNORMAL) Hemoglobin [...] Mellitus, Diabetes Care 2013; 36: Suppl. 1, I17-80 Est Avg Gluc 117 mg/dL [facility] Comment: eAG equivalents for HbA1c percentages: HbA1c(%) ?eAG(mg/dL) 6.0 ?126 6.5 ?140 7.0 ?154 7.5 ?169 8.0 ?183 8.5 ?197 9.0 ?212 9.5 ?226 10.0 ? 240 Limitations: The eAG calculation has not been validated on women, individuals below 18 years old and above 70 years old, and individuals with hemoglobinopathies. Additional resources are available on [facility] website: [email or web address] Edinson GRISSOM, Nathaniel J, Ari R, et al. ??Tr anslating the A1C assay into estimated average glucose values. ??Diabetes Care 2008:31(8):6471-3029. Specimen Anatomical Collection Method Collection Time Receive d Time (Source) Location / / Volume Laterality Blood specimen 05/31/2014 7:21 AM 014 7:33 (specimen) EDT AM EDT Resulting Agency Comment Spec In Lab Divya Coles MD CHEMISTRY ORDERABLES Performing Organization Address City/State/Z[place] [address] [facility] documented in this encounter Visit Diagnoses Diagnosis H/O pancreas transplant 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 Hypothyroidism Unspecified hypothyroidism documented in this encounter Care Teams Diver Tender Relationship Specialty Start Date End Date Anna Mullen MD PCP - General 12/03/10 [address] [place] [address] documented as of this encounter
--- OUTSIDE RECORDS SUMMARY | 2022-04-04 00:49 | XMS_ITS | Encounter Summary ---
:1965 Author Organization [facility] [place] [address] Care Team Providers Name Role Phone Anna Mullen MD Primary Care Provider Reason for Visit Reason Onset Date Comments Medication Refill 06/07/2014 Encounter Details Date Type Department Care Team Description 06/07/2014 Refill Solid Organ Transplant at Eriberto Emery MD [facility] Unique pham [place] [address] [place] [address] [phone] (Wo rk) Social History Tobacco Use Types [...] mg capsule [ERIBERTO MELGAR MD] Preferred pharmacy: [facility] - [place], [place] - [facility] Comment: documented in this encounter Plan of Treatment Not on filedocumented as of this encounter Visit Diagnoses Not on filedocumented in this encounter Care Teams Clinical Trials Nurse Relationship Specialty Start Date End Date Anna Mullen MD PCP - General 12/03/10 [address] [place] [address] documented as of this encounter
--- OUTSIDE RECORDS SUMMARY | 2022-04-04 00:49 | XMS_ITS | Encounter Summary ---
:1965 Author Organization [facility] [place] [address] Care Team Providers Name Role Phone Anna Mullen MD Primary Care Provider Encounter Details Date Type Department Care Team Description 12/22/2013 Notes Only Endocrinology at [facility] C Fili Hoover, [place] [address] Social History Tobacco Use Types Packs/Day [...] 12/22/2013 4:35 PM EDT Resent form to [facility] medical for continuous BG monitoring coverage. documented in this encounter Plan of Treatment Not on filedocumented as of this encounter Visit Diagnoses Not on filedocumented in this encounter Care Teams Wiring Inspector Relationship Specialty Start Date End Date Anna Mullen MD PCP - General 12/03/10 [address] [place], [place] [address] documented as of this encounter
--- OUTSIDE RECORDS SUMMARY | 2022-04-04 00:49 | XMS_ITS | Encounter Summary ---
:1965 Author Organization [facility] [place] [address] Care Team Providers Name Role Phone Anna Mullen MD Primary Care Provider Encounter Details Date Type Department Care Team Description 11/30/2013 Telephone Solid Organ Transpla nt at [facility] [address] Social History Tobacco Use Types Packs/Day [...] Manzano - 11/30/2013 8:24 AM EDT Transplant Ships Equipment Engineer Note:Received call from the patient requesting a prescription for test strips - One Touch Ultra for testing 4x per day - 90 day supply with 3 refills. This will be communicated to the nurse. I gave the patient the main line to call for refill [phone] because there is always someone to answer that number, whereas my number will go to voicemail and is not monitored by others. He expressed understanding of this. documented in this encounter Plan of Treatment Not on filedocumented as of this encounter Visit Diagnoses Not on filedocumented in this encounter Care Teams Parts Picker Relationship Specialty Start Date End Date Anna Mullen MD PCP - General 12/03/10 [address] [place] [address] documented as of this encounter
--- OUTSIDE RECORDS SUMMARY | 2022-04-04 00:49 | XMS_ITS | Encounter Summary ---
:1965 Author Organization [facility] [place] [address] Care Team Providers Name Role Phone Anna Mullen MD Primary Care Provider Encounter Details Date Type Department Care Team Description 12/01/2013 Refill Spine Center at [facility] [place] [address] Social History Tobacco Use Types Packs/Day [...] on filedocumented in this encounter Care Teams Color Corrector Relationship Specialty Start Date End Date Anna Mullen MD PCP - General 12/03/10 [address] [place] [address] documented as of this encounter
--- OUTSIDE RECORDS SUMMARY | 2022-04-04 00:49 | XMS_ITS | Encounter Summary ---
:1965 Author Organization [facility] [place] [address] Care Team Providers Name Role Phone Anna Mullen MD Primary Care Provider Encounter Details Date Type Department Care Team Description 12/02/2013 Orders Only Solid Organ Transplant at Iraj Chappell I, [place] [address] [place] [address] [phone] Social History Tobacco Use Types Packs/Day Years [...] on filedocumented in this encounter Care Teams Communication Analyst Relationship Specialty Start Date End Date Anna Mullen MD PCP - General 12/03/10 [address] [place] [address] documented as of this encounter
--- OUTSIDE RECORDS SUMMARY | 2022-04-04 00:49 | XMS_ITS | Encounter Summary ---
:1965 Author Organization [facility] [place] [address] Care Team Providers Name Role Phone Anna Mullen MD Primary Care Provider Encounter Details Date Type Department Care Team Description 11/21/2013 External Results Solid Organ Transplant Michael Smiley I, at [facility] [place] [address] [place] [address] [phone] (Wo rk) Social History Tobacco Use Types [...] Procedure Name Priority Date/Time Associated Diagnosis Comme [facility] TRANSPLANT Routine 11/18/2013 Results fo r this FOLLOW UP LABS EXTERNAL proc edure are in the RESULTS PANEL results sectio n. documented in this encounter Results (ABNORMAL) Transplant: Follow up lab request - External Results (11/18/2013) [facility] Method Time Signature WBC 3.08 (External Lab) [...] on filedocumented in this encounter Care Teams Candy Butcher Relationship Specialty Start Date End Date Anna Mullen MD PCP - General 12/03/10 [address] [place] [address] documented as of this encounter
--- OUTSIDE RECORDS SUMMARY | 2022-04-04 00:49 | XMS_ITS | Encounter Summary ---
:1965 Author Organization [facility] [place] [address] Care Team Providers Name Role Phone Anna Mullen MD Primary Care Provider Encounter Details Date Type Department Care Team Description 04/03/2014 External Results Solid Organ Transplant Michael Smiley I, at [facility] [place] [address] [place] [address] [phone] (Wo rk) Social History Tobacco Use Types [...] Procedure Name Priority Date/Time Associated Diagnosis Comme [facility] TRANSPLANT Routine 04/01/2014 Results fo r this FOLLOW UP LABS EXTERNAL proc edure are in the RESULTS PANEL results sectio n. documented in this encounter Results (ABNORMAL) Transplant: Follow up lab request - External Results (04/01/2014) [facility] Method Time Signature WBC 4.36 (External Lab) [...] filedocumented in this encounter Care Teams Business Control Manager Relationship Specialty Start Date End Date Anna Mullen MD PCP - General 12/03/10 [address] [place] [address] documented as of this encounter
--- OUTSIDE RECORDS SUMMARY | 2022-04-04 00:49 | XMS_ITS | Encounter Summary ---
:1965 Author Organization [facility] [place] [address] Care Team Providers Name Role Phone Anna Mullen MD Primary Care Provider Encounter Details Date Type Department Care Team Description 07/08/2014 Hospital Encounter Laboratory [facility] [place] [address] TRANSPLANT SURGE [place], [place] [address] (Wo rk) Social History Tobacco [...] code :250.60 Diabetic Supplies, Fax form to [facility] 100 each 12 06/26/2014 1 10/14/2014 Miscellan. [facility] for testing supplies 4 times per [...] Organization Address City/State/[place] [address] [facility] documented in this encounter Visit Diagnoses Not on filedocumented in this encounter Care Teams Math And Sciences Department Chair Relationship Specialty Start Date End Date Anna Mullen MD PCP - General 12/03/10 [address] [place] [address] documented as of this encounter
--- OUTSIDE RECORDS SUMMARY | 2022-04-04 00:49 | XMS_ITS | Encounter Summary ---
:1965 Author Organization [facility] [place] [address] Care Team Providers Name Role Phone Anna Mullen MD Primary Care Provider Encounter Details Date Type Department Care Team Description 06/14/2014 Hospital Encounter Laboratory [place], Jesus LBP radiating to [facility] MD Sandra [place], [place] [address] [facility] [phone] [place] [address] Social History Tobacco Use Types Packs/Day Years [...] mg Tablet Diabetic Supplies, Fax form to [facility] 100 each 12 05/10/2014 1 Miscellan. [facility] for testing supplies 10 times per [...] Lumbago documented in this encounter Care Teams Prescription Clerk Relationship Specialty Start Date End Date Anna Mullen MD PCP - General 12/03/10 [address] [place] [address] documented as of this encounter
--- OUTSIDE RECORDS SUMMARY | 2022-04-04 00:49 | XMS_ITS | Encounter Summary ---
:1965 Author Organization [facility] [place] [address] Care Team Providers Name Role Phone Anna Mullen MD Primary Care Provider Encounter Details Date Type Department Care Team Description 11/30/2013 Telephone Spine Center at [facility] [place] [address] Social History Tobacco Use Types Packs/Day [...] on filedocumented in this encounter Care Teams Pattern Mechanic Relationship Specialty Start Date End Date Anna Mullen MD PCP - General 12/03/10 [address] [place] [address] documented as of this encounter
--- OUTSIDE RECORDS SUMMARY | 2022-04-04 00:49 | XMS_ITS | Encounter Summary ---
:1965 Author Organization [facility] Address [facility] [facility] [address] [place] [address] Care Team Providers Name Role Phone Anna Mullen MD Primary Care Provider Encounter Details Date Type Department Care Team Description 06/14/2014 Orders Only Solid Organ Eriberto Melgar Need for prophylactic Transplant at [facility] MD Arlyn vaccination against [facility] [address] e[address] DR dillard [place], [place] TRANSPLANT SURGE RY (pneumococcus) (Primary [address] [place] [address] Dx) [phone] Social History Tobacco Use Types Packs/Day Years [...] (pneumococcus) documented in this encounter Care Teams Machine Stamper Relationship Specialty Start Date End Date Anna Mullen MD PCP - General 12/03/10 [address] [place] [address] documented as of this encounter
--- OUTSIDE RECORDS SUMMARY | 2022-04-04 00:49 | XMS_ITS | Encounter Summary ---
:1965 Author Organization [facility] [place] [address] Care Team Providers Name Role Phone Anna Mullen MD Primary Care Provider Encounter Details Date Type Department Care Team Description 01/06/2014 Hospital Encounter MRI [place] [facility] LBP radiating to right leg; [facility] [place] [address] Social History Tobacco Use Types Packs/Day [...] 38.5 Centigrade). Diabetic Supplies, Fax form to [facility] 100 each 12 09/02/2013 0 05/10/2014 Miscellan. [facility] for testing supplies 10 [...] systems documented in this encounter Care Teams Operations And Maintenance Technician Relationship Specialty Start Date End Date Anna Mullen MD PCP - General 12/03/10 [address] [place] [address] documented as of this encounter
--- OUTSIDE RECORDS SUMMARY | 2022-04-04 00:49 | XMS_ITS | Encounter Summary ---
:1965 Author Organization [facility] [place] [address] Care Team Providers Name Role Phone Anna Mullen MD Primary Care Provider Encounter Details Date Type Department Care Team Description 11/29/2013 Hospital Encounter [place] [facility] [place]oliosis; [address] [facility] [place] [address] Social History Tobacco Use Types Packs/Day [...] 38.5 Centigrade). Diabetic Supplies, Fax form to [facility] 100 each 12 09/02/2013 0 05/10/2014 Nerve.comcellan. [facility] for testing supplies 10 [...] unspecified documented in this encounter Care Teams Avionics Safety Inspector Relationship Specialty Start Date End Date Anna Mullen MD PCP - General 12/03/10 [address] [place] [address] documented as of this encounter
--- OUTSIDE RECORDS SUMMARY | 2022-04-04 00:49 | XMS_ITS | Encounter Summary ---
:1965 Author Organization [facility] Address [address] [place] [address] Care Team Providers Name Role Phone Anna Mullen MD Primary Care Provider Reason for Visit Reason Comments Pancreas Transplant Follow-up Encounter Details Date Type Department Care Team Description 03/07/2014 Office Visit Solid Organ Eriberto Melgar Need for prophylactic immunotherapy; [place] [facility] [place] Arlyn Status post pancreas transplantation; Counts include 234 beds at the [facility] CMV (cytomegalovirus) antibody positive Drive [place] [address] [place] [address] [phone] Social History Tobacco Use Types Packs/Day Years [...] Melgar MD - 02/27/2014 10:05 AM EDT [facility] Transplant Nephrology Follow Up Date: 03/07/2014 Patient: Richard Hsu Transplant Date: 08/28/13 Organ(s) Pancreas Platinum organ diagnosis: Diabetes Mellitus - Type I [...] virus only) ??? Hepatitis C Screening (B. [id number]) ??? Pneumovax Q5 years ??? Yearly ophthalmology [...] GI ENDOSCOPY performed by CLAYTON BHAKTA at [facility] ENDOSCOPY ??? Upper gi endoscopy, biopsy 12/31/2011 UPPER GASTROINTESTINAL ENDOSCOPY,WITH BIOPSY SINGLE OR MULTIPLE performed by CLAYTON BHAKTA at [facility] ENDOSCOPY ??? Shoulder surgery ??? Carpal tunnel release ??? Appendectomy ??? Musculoskeletal surgery unlisted 10 years carpel tunnel ??? 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 Transplant allograft pancreas 08/28/2013 @PANCREATIC TRANSPLANT performed by Iraj Keller MD at [facility] MAIN OR ??? Transplant, prep donor pancreas 08/28/2013 @PREPARATION CADAVERIC PANCREAS, STANDARD performed by Iraj Keller MD at [facility] MAIN OR Family History Problem Relation [...] Diabetic Supplies, Miscellan. Misc Fax form to [facility] for testing supplies 10 times per [id number] each ??? sildenafil (VIAGRA) 100 mg tablet [...] Neg 11/15/2012 1109 VZVIGG Pos 08/28/2013 0134 [id number] Pos* 11/15/2012 1109 [id number] Neg 11/15/2012 1109 HEPCAB Negative 08/28/2013 0134 [...] MD URINE ORDERABLES Performing Organization Address City/[facility]/ZIP [place] [address] [facility] Urinalysis with microscopic (03/07/2014 7:54 AM EDT) [facility] Method Time Signature Glucose UA Negative [...] clinically indicated. Urobilinogen UA Normal Normal mg/dL [facility] ENNIUM pH UA 5.5 5.0 - 8.0 [facility] Blood UA Negative Negative mg/dL [facility] Ketones UA Negative Negative mg/dL [facility] IUM Nitrite UA Negative Negative [facility] Leukocytes UA Negative Negative mcL [facility] Appearance UA Clear Clear [facility] M Spec [place] UA 1.004 1.002 - 1.030 [facility] LENNIUM Color UA Colorless Yellow [facility] RBC UA <1 0 - 3 /HPF [facility] WBC UA Not Present 0 - 3 [facility] Specimen Anatomical Collection Method Collection Time Receive d Time (Source) Location / / Volume Laterality Urine specimen 03/07/2014 7:54 AM 014 7:57 (specimen) EDT AM EDT Resulting Agency Comment Spec In Lab Eriberto Melgar MD URINE ORDERABLES Performing Organization Address City/[facility]/ZIP [place] [address] [facility] BK Quant Blood Result (03/07/2014 7:49 AM EDT) Component Value Ref Test Analysis Performed At [facility] Method Time Signature BKV Blood Not Detected [facility] BKV Blood BK Virus Blood Result Interpretation [facility] Inter MILLENNIUM Result: BK Virus not detected log concentration (copies/mL): ??Not detected Assay Range: ??plasma: 3.04-9.04 log copyholder ies/mL (1.1x10^3 - 1.1x10^9 copies/mL) Results are reported as log copies/mL. ??Changes of less than 1.0 log between serial samples may not be clinically significant. Methods: Quantitative real-time polymerase chain react ion (PCR) of viral DNA isolated from plasma was performed using Lucky Sort BKV (ASR) re agents and the [employer] 7500 FAST Real-Time PCR System. In additi on, the ??PCR product sequence is confirmed using physical properties (bria ting curve analysis). This test was developed and its performance determined by the [facility] Molecular Pathology Laboratory. It has not been [...] Organization Address City/State/ZIP Code Phon e Number [place] [phone] CERNER MILLENNIUM Differential, Automated [...] Organization Address City/State/ZIP Code Phon e Number [place] [phone] CERNER MILLENNIUM (ABNORMAL) Hemogram [...] RDWCV 14.3 10.9 - CERNER 14.4 % [facility] MPV 9.9 9.0 - 12.0 CERN[facility] Specimen Anatomical Collection Method Collection Time Receive d Time (Source) Location / / Volume Laterality Blood specimen 03/07/2014 7:49 AM 014 7:53 (specimen) EDT AM EDT Resulting Agency Comment Spec In Lab Eriberto Melgar MD HEMATOLOGY ORDERABLES Performing Organization Address City/[facility] Phon e Number [address] [facility] CMV Antibody, IgG (03/07/2014 7:49 AM EDT) athologist Signature CMV IgG Pos Neg [facility] Specimen Anatomical Collection Method Collection Time Receive d Time (Source) Location / / Volume Laterality Blood specimen 03/07/2014 7:49 AM 014 (specimen) EDT 10:11 AM EDT Resulting Agency Comment Spec In Lab Eriberto Melgar MD IMMUNOLOGY ORDERABLES Performing Organization Address City/[facility] Code Phon e Number [address] [facility] CMV PCR, Quantitative (03/07/2014 7:49 AM EDT) [facility] gist Method Time Signature CMV DNA PCR Undetected Undetected [facility] Quant IU/mL [facility] Comment: Result in log IU/mL is Undetected. The quantification range of this assay i s 137 to 9,100,000 IU/mL (2.14 log to 6.96 log IU/mL) with a limit of detection at 91 IU/mL (1.96 log IU/mL). Testing was performed by the [employer] AmpliPrep/ARNAUD T aqMan CMV Test ([employer] Test Performed by: [facility] [employer] [address], [place] [address] Site Controller: Sarita Beach, Ph. D. Specimen Anatomical Collection Method Collection Time Receive d Time (Source) Location / / Volume Laterality Blood specimen 03/07/2014 7:49 AM 014 3:27 (specimen) EDT PM EDT Resulting Agency Comment Spec In Lab Eriberto Melgar MD IMMUNOLOGY ORDERABLES Performing Organization Address City/[facility]/ZIP Code Phon e Number [address] [facility] MILLENNIUM Cholesterol, total (03/07/2014 7:49 AM EDT) P athologist Signature Chol, Total 136 <=199 mg/dL [facility] Comment: Recommendations of the NCEP Adult [...] City/[facility]/ZIP Code Phon e Number [address] CERNER MILLENNIUM Amylase (03/07/2014 [...] City/[facility]/ZIP Code Phon e Number [address] CERNER MILLENNIUM Lipase (03/07/2014 [...] Address City/State/ZIP Code Phon e Number TIFFANI [place] [phone] CERNER MILLENNIUM Comprehensive metabolic [...] intervals supplied above were not validated at [facility]. Results from pediatri c patients [...] the following links into your internet browser. [email or web address] [email or web address] Specimen Anatomical Collection Method Collection Time Receive d Time (Source) Location / / Volume Laterality Blood specimen 03/07/2014 7:49 AM 014 7:53 (specimen) EDT AM EDT Resulting Agency Comment Spec In Lab Eriberto Melgar MD CHEMISTRY ORDERABLES Performing Organization Address City/[facility] Phon e Number [address] CERNER MILLENNIUM Magnesium (03/07/2014 7:49 AM EDT) P athologist Signature Magnesium 0.73 0.69 - 1.07 CERNER mmol/L MILLENNIUM Specimen Anatomical Collection Method Collection Time Receive d Time (Source) Location / / Volume Laterality Blood specimen 03/07/2014 7:49 AM 014 7:53 (specimen) EDT AM EDT Resulting Agency Comment Spec In Lab Eriberto Melgar MD CHEMISTRY ORDERABLES Performing Organization Address City/[facility] Phon e Number [address] CERNER MILLENNIUM Phosphorus (03/07/2014 7:49 AM EDT) P athologist Signature Phosphorus 2.7 2.5 - 4.5 CERNER mg/dL MILLENNIUM Specimen Anatomical Collection Method Collection Time Receive d Time (Source) Location / / Volume Laterality Blood specimen 03/07/2014 7:49 AM 014 7:53 (specimen) EDT AM EDT Resulting Agency Comment Spec In Lab Eriberto Melgar MD CHEMISTRY ORDERABLES Performing Organization Address City/[facility] [place] [address] CERNER MILLENNIUM Uric acid [...] Address City/State/ZIP Code Phon e Number [address] [facility] Tacrolimus level (03/07/2014 7:49 AM EDT) athologist Signature Tacrolimus Lvl 6.7 ng/mL [facility] Comment: Trough therapeutic: 5-15 ng/mL Specimen Anatomical Collection Method Collection Time Receive d Time (Source) Location / / Volume Laterality Blood specimen 03/07/2014 7:49 AM 014 (specimen) EDT 12:17 PM EDT Resulting Agency Comment Spec In Lab Eriberto Melgar MD CHEMISTRY ORDERABLES Performing Organization Address City/[facility]/ZIP Code Phon e Number [address] CERNER MILLENNIUM Reticulocyte Count [...] Organization Address City/State/ZIP Code Phon e Number [place] [phone] [facility] documented in this encounter Visit Diagnoses Diagnosis Need for prophylactic immunotherapy Status post pancreas transplantation 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 CMV (cytomegalovirus) antibody positive Other and unspecified nonspecific immuno logical findings documented in this encounter Care Teams Decorating Machine Tender Relationship Specialty Start Date End Date Anna Mullen MD PCP - General 12/03/10 [address] [place] [address] documented as of this encounter
--- OUTSIDE RECORDS SUMMARY | 2022-04-04 00:49 | XMS_ITS | Encounter Summary ---
:1965 Author Organization [facility] [place] [address] Care Team Providers Name Role Phone Anna Mullen MD Primary Care Provider Reason for Visit Reason Comments Low Back Pain Encounter Details Date Type Department Care Team Description 11/29/2013 Office Visit [facility] at [facility], LBP ra diating to right leg; [place] Stroke-like symptoms Count includes the [facility] [address] [place] [facility] [facility] [address], [place] [address] [phone] Social History Tobacco Use Types Packs/Day Years [...] NB: The above note was dictated using u[employer] voice recognition program 15 min of this [...] systems documented in this encounter Care Teams Material Specialist Relationship Specialty Start Date End Date Anna Mullen MD PCP - General 12/03/10 [address] [place] [address] documented as of this encounter
--- OUTSIDE RECORDS SUMMARY | 2022-04-04 00:49 | XMS_ITS | Encounter Summary ---
:1965 Author Organization [facility] [place] [address] Care Team Providers Name Role Phone Anna Mullen MD Primary Care Provider Reason for Visit Reason Comments Pancreas Transplant Follow-up Encounter Details Date Type Department Care Team Description 12/27/2013 Office Visit Solid Organ Chobanian, Need for prophy lactic immunotherapy; Transplant at [facility] Eriberto Stoddard MD Status post pancreas transplantation [facility] [address] [place], [place] [address] SURGERY [phone] [place], [place] [address] Social History Tobacco Use Types [...] Melgar MD - 12/19/2013 1:38 PM EDT [facility] Transplant Nephrology Follow Up Date: 12/27/2013 Patient: Richard Hsu Transplant Date: 08/28/13 Organ(s) Pancreas [place] organ UNOS diagnosis: Diabetes Mellitus - Type [...] virus only) ??? Hepatitis C Screening (B. [id number]) ??? Pneumovax Q5 years ??? Yearly ophthalmology [...] BHAKTA at [facility] ENDOSCOPY ??? Upper gi endoscopy, [...] TRANSPLANT performed by Iraj Keller MD at [facility] MAIN OR ??? Transplant, prep donor pancreas 08/28/2013 @PREPARATION CADAVERIC PANCREAS, STANDARD performed by Iraj Keller MD at [facility] MAIN OR Family History Problem [...] Centigrade). 30 tablet ??? Diabetic Supplies, [place]iscellan. [facility] [place]ax form to [facility] medical for testing supplies 10 times per [id number] each 12 ??? sildenafil (VIAGRA) 100 mg [...] primary infection with EBV. Test Performed by: [facility] [employer] [address], [place] [address] Jewel Bearing Polisher: Sarita Beach, Ph.D. 01/21/2012 1615 EBVIGGAB Pos* [...] [facility]/[place] [address] [facility] Urinalysis with microscopic (12/27/2013 7:52 AM EDT) [facility] Method Time Signature Glucose UA [...] if clinically indicated. Urobilinogen UA Normal mg/dL [facility] MILLENN IUM pH UA 6.5 5.0 - 8.0 CERNER MILLENNIUM Blood UA Negative mg/dL [facility] MILL[facility]UM Ketones UA Negative mg/dL [facility] Nitrite UA Negative [facility] MILLENNIUM Leukocytes UA Negative mcL [facility] MILL[facility]NIU M Appearance UA Clear Clear [facility] MILLENNIU M Spec [place] UA 1.003 1.002 - 1.030 [facility] MIL LENNIUM Color UA Light Yellow Yellow [facility] MILLENNIUM RBC UA <1 0 - 3 /HPF [facility] MILLENNIUM WBC UA Not Present 0 - 3 [facility] MILLENNIUM Squam Epith UA <1 <=4 /HPF [facility] Specimen Anatomical Collection Method Collection Time Receive d Time (Source) Location / / Volume Laterality Urine specimen 12/27/2013 7:52 AM 014 7:59 (specimen) EDT AM EDT Resulting Agency Comment Spec In Lab Eriberto Melgar MD URINE ORDERABLES Performing Organization Address City/[facility]/[place] [address] [facility] BK Quant Blood Result (12/27/2013 7:49 AM EDT) Component Value Ref Test Analysis Performed At [facility] Range Method Time Signature BKV Blood Not Detected [facility] Result [facility] BKV Blood BK Virus Blood Result Interpretation [facility] Interp MILLENNIUM Result: BK Virus not detected log concentration (copies/mL): ??Not detected Assay Range: ??plasma: 3.04-9.04 log gyroscopic engineering technician ies/mL (1.1x10^3 - 1.1x10^9 copies/mL) Results are reported as log copies/mL. ??Changes of less than 1.0 log between serial samples may not be clinically significant. Methods: Quantitative real-time polymerase chain react ion (PCR) of viral DNA isolated from plasma was performed using Neuravi BKV (ASR) re agents and the [employer] FAST Real-Time PCR System. In additi on, [...] City/State/ZIP Code Phon e Number [place] [id number]OS[address] CERNER MILLENNIUM (ABNORMAL) Differential, Automated (12/27/2013 7:49 AM EDT) [facility] Method Time Signature Neutrophils % 36.3 34.0 [...] Organization Address City/State/[place] [address] CERNER MILLENNIUM (ABNORMAL) CMV PCR, Quantitative (12/27/2013 7:49 AM EDT) [facility] Method Time Signature CMV DNA PCR <137 [...] ARNAUD AmpliPrep/ARNAUD T aqMan CMV Test ([employer] Test Performed by: [facility] [place] [address] Jewel Bearing Polisher: Sarita Beach, Ph. D. Specimen Anatomical Collection Method Collection Time Receive d Time (Source) Location / / Volume Laterality Blood specimen 12/27/2013 7:49 AM 014 2:09 (specimen) EDT PM EDT Resulting Agency Comment Spec In Lab Eriberto Melgar MD IMMUNOLOGY ORDERABLES Performing Organization Address City/[facility]/ZIP Code Phon e Number [address] CERNER MILLENNIUM Amylase (12/27/2013 [...] [facility]/ZIP Code Phon e Number [address] CERNER MILLENNIUM Lipase (12/27/2013 [...] Performing Organization Address City/[facility]/ZIP [facility] Phon e Number [address] CERNER MILLENNIUM (ABNORMAL) Comprehensive [...] CHEMISTRY ORDERABLES Performing Organization Address [facility]/ZIP [facility] Phon e Number [address] CERNER MILLENNIUM (ABNORMAL) Magnesium [...] CHEMISTRY ORDERABLES Performing Organization Address [facility]/[place] [address] CERNER MILLENNIUM Phosphorus (12/27/2013 [...] [facility]/[place] [address] CERNER MILLENNIUM Uric acid [...] [facility]/[place] [address] CERNER MILLENNIUM Tacrolimus level [...] [facility]/[place] [address] CERNER MILLENNIUM Reticulocyte Count [...] [facility]/[place] [address] CERNER MILLENNIUM (ABNORMAL) CBC [...] Organization Address City/State/[place] [address] CERNER MILLENNIUM Cholesterol, total [...] [facility]/[place] [address] CERNER MILLENNIUM documented in this encounter Visit Diagnoses Diagnosis Need for prophylactic immunotherapy Status post pancreas transplantation 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 documented in this encounter Care Teams Snaker Tractor Driver Relationship Specialty Start Date End Date Anna Mullen MD PCP - General 12/03/10 [address] [place] [address] documented as of this encounter
--- OUTSIDE RECORDS SUMMARY | 2022-04-04 00:49 | XMS_ITS | Encounter Summary ---
:1965 Author Organization [facility] Address [place] [id number] Care Team Providers Name Role Phone Anna Mullen MD Primary Care Provider Reason for Visit Reason Comments Right Elbow Pain elbow pain Encounter Details Date Type Department Care Team Description 01/10/2014 Office Visit Orthopaedics at [facility] Leena Nicholson, Ulnar neuropathy, [facility] MD damon (Primary Dx) [place] [address] [place] [address] ORTHOPAEDIC SURGERY [place] [address] Social History Tobacco Use Types Packs/Day Years [...] plan documented above. Leena Nicholson M.D., M.S. Financial Secretary of Orthopaedic Surgery Shoulder, Elbow, and Sports Medicine Department of Orthopaedic Surgery [place], [place] [address] Karlee Rouse PA - 01/10/2014 5:06 PM EDT PATIENT NAME: Richard Hsu AGE: 48 y.o. 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 PHYSICAL EXAM: Mr. Hsu is [...] concerns. The above documentation was completed using [employer] voice recognition software. documented in this encounter Plan of Treatment Not on filedocumented as of this encounter Visit Diagnoses Diagnosis Ulnar neuropathy, right - Primary documented in this encounter Care Teams Active Directory Architect Relationship Specialty Start Date End Date Anna Mullen MD PCP - General 12/03/10 [address] [place] [address] documented as of this encounter
--- OUTSIDE RECORDS SUMMARY | 2022-04-04 00:49 | XMS_ITS | Encounter Summary ---
:1965 Author Organization [facility] [place] [address] Care Team Providers Name Role Phone Anna Mullen MD Primary Care Provider Encounter Details Date Type Department Care Team Description 01/06/2014 Hospital Encounter MRI at [facility], DR FRYE LBP radiating to right leg; [facility] Jesus Diana MD [facility] [place] [address] [place] [phone] Social History Tobacco Use Types Packs/Day Years [...] 38.5 Centigrade). Diabetic Supplies, Fax form to [facility] 100 each 12 09/02/2013 0 05/10/2014 Miscellan. [facility] medical for testing supplies 10 [...] Hsu AGE: 48 y.o. : 1965 Male [phone] (home) [phone] (work) No relevant phone numbers on file. PCP STRINGED INSTRUMENT ASSEMBLER ANNA MULLEN MD None Allergies Allergen Reactions [...] transplant. Per his request, Dr. Melgar's office/ technology coordinator were contacted to be sure ativan or valium were safe for him and would not interfere with his other meds. The technology coordinator stated that either med was safe [...] HR. BEFORE SCHEDULED SCAN AND HAVE A COMMUNICATIONS CONSULTANT AVAILABLE. PT STATED TO VIGOUREUX PRINTER THAT THE SEDATION WAS EFFECTIVE FOR SCAN: [id number] COMMENTS: See Above This patient has been informed that they require a tour driver to drive them home after this procedure. In the absence of a tour driver, IR will not be able to [...] Timed documented in this encounter Care Teams Flexible Machining System Machinist Relationship Specialty Start Date End Date Anna Mullen MD PCP - General 12/03/10 [address] [place] [address] documented as of this encounter
--- OUTSIDE RECORDS SUMMARY | 2022-04-04 00:49 | XMS_ITS | Encounter Summary ---
:1965 Author Organization [facility] [place] [address] Care Team Providers Name Role Phone Anna Mullen MD Primary Care Provider Reason for Referral Surgical (Routine) - Closed by system - Referral Specialty Diagnoses / Procedures Referred By Contact Refer red To Contact Anesthesiology Diagnoses LBP radiating to right leg Jesus Diana MD Ip Anesthesiology [facility] [address] [address] Referral ID Status Reason Start Expiration Visits Visits Date Date Requested Authorized [id number] Closed by Consult, 01/10/2014 07/09/2014 1 1 system - Test & Referral Treat Reason for Visit Reason Comments Low Back Pain Encounter Details Date Type Department Care Team Description 01/10/2014 Office Visit [facility] at Jesus Diana, LBP ra diating to right [place] MORENO leg (Primary Dx) [facility] [address] [place] [address] [place] [address] [phone] Social History Tobacco Use Types Packs/Day Years [...] treatment options, including continuing non-op treatment, functional nondenominational program, different surgical treatment etc. We discussed [...] and also ensure clearances from anesthesiology, Dr. Kleler and Dr. Melgar. documented in this encounter Plan of Treatment Scheduled Referrals Name Type Priority Associated Order Schedule Diagnoses Referral to General Outpatient Referral Routine LBP radiating to Ordered: Anesthesiology right leg 01/10/2014 documented as of this encounter Visit Diagnoses Diagnosis LBP radiating to right leg - Primary Lumbago documented in this encounter Care Teams Screening Specialist Relationship Specialty Start Date End Date Anna Mullen MD PCP - General 12/03/10 [address] [place] [address] documented as of this encounter
--- OUTSIDE RECORDS SUMMARY | 2022-04-04 00:49 | XMS_ITS | Encounter Summary ---
:1965 Author Organization [facility] [place] [address] Care Team Providers Name Role Phone Anna Mullen MD Primary Care Provider Encounter Details Date Type Department Care Team Description 04/01/2014 Hospital Encounter Laboratory Eriberto Melgar [facility] [place] [address] TRANSPLANT SURGE [place], [place] [address] (Wo rk) Social History Tobacco [...] 38.5 Centigrade). Diabetic Supplies, Fax form to [facility] 100 each 12 09/02/2013 0 [...] Organization Address City/State/[place] [address] CERNER MILLENNIUM documented in this encounter Visit Diagnoses Not on filedocumented in this encounter Care Teams [place] Pilot Relationship Specialty Start Date End Date Anna Mullen MD PCP - General 12/03/10 [address] [place] [address] documented as of this encounter
--- OUTSIDE RECORDS SUMMARY | 2022-04-04 00:49 | XMS_ITS | Encounter Summary ---
:1965 Author Organization [facility] [place] [address] Care Team Providers Name Role Phone Anna Mullen MD Primary Care Provider Reason for Visit Reason Comments Pancreas Transplant Follow-up Encounter Details Date Type Department Care Team Description 11/29/2013 Office Visit Solid Organ Chobanian, Need for prophy lactic immunotherapy; Transplant at [facility] Eriberto Stoddard MD Status post pancreas transplantation [facility] [address] [place], [place] [address] SURGERY [phone] [place], [place] [address] Social History Tobacco Use Types [...] Mckay, RD - 11/29/2013 9:42 AM EDT [facility] Post Transplant Nutrition Follow Up Date: 11/29/2013 Patient: Richard Hsu Transplant Date: 08/28/13 Platinum organ UNOS diagnosis: Diabetes Mellitus - Type [...] Melgar MD - 11/17/2013 4:00 PM EDT [facility] Transplant Nephrology Follow Up Date: 11/29/2013 Patient: Richard Hsu Transplant Date: 08/28/13 Platinum organ UNOS diagnosis: Diabetes Mellitus - Type I (Pancreas) Transplant: Mr. Richard Hsu is a White Not nor 48 y.o. male who is Status Post Pancreas transplantation on 08/28/13. Richard presents to clinic for routine follow-up; he is 3 monthsfrom transplant. 11/07/2013 Geoffrey aMrtinez MD ?? Clinical impression and recommendations: ?? [...] virus only) ??? Hepatitis C Screening (B. [id number]) ??? Pneumovax Q5 years ??? Yearly ophthalmology [...] GI ENDOSCOPY performed by CLAYTON BHAKTA at [facility] ENDOSCOPY ??? Upper gi endoscopy, biopsy 12/31/2011 UPPER GASTROINTESTINAL ENDOSCOPY,WITH BIOPSY SINGLE OR MULTIPLE performed by CLAYTON BHAKTA at [facility] ??? Shoulder surgery ??? Carpal tunnel release ??? Appendectomy ??? Musculoskeletal surgery unlisted 10 years carpel tunnel ??? 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 Transplant allograft pancreas 08/28/2013 @PANCREATIC TRANSPLANT performed by Iraj Keller MD at [facility] MAIN OR ??? Transplant, prep donor pancreas 08/28/2013 @PREPARATION CADAVERIC PANCREAS, STANDARD performed by Iraj Keller MD at [facility] MAIN OR Family History Problem Relation [...] Centigrade). 30 tablet ??? Diabetic Supplies, Miscellan. [facility] Fax form to [facility] for testing supplies 10 times per [id number] each 12 ??? levothyroxine (SYNTHROID) 200 mcg [...] primary infection with EBV. Test Performed by: [place] [address] Hide Dyer: Sarita Beach, Ph.D. 01/21/2012 3176 EBVIGGAB Pos* 11/15/2012 1109 EBVIGMAB Neg 11/15/2012 [...] Organization Address City/State/ZIP Code Phon e Number [place] [phone] CERNER MILLENNIUM Urinalysis with microscopic (11/29/2013 7:48 AM EDT) [facility] Method Time Signature Glucose UA [...] UA Clear Clear CERNER MILLENNIU M Spec [place] UA 1.011 1.002 - 1.030 CERNER MIL [...] Address City/State/ZIP Code Phon e Number [address] CERNER MILLENNIUM (ABNORMAL) Differential, Automated (11/29/2013 7:46 AM EDT) [facility] Method Time Signature Neutrophils % 50.8 [...] Melgar MD HEMATOLOGY ORDERABLES Performing Organization Address City/[facility]/ZIP Code Phon e Number [address] CERNER MILLENNIUM Scan, Peripheral [...] Melgar MD HEMATOLOGY ORDERABLES Performing Organization Address City/[facility]/ZIP Code Phon e Number [address] CERNER MILLENNIUM BK Quant Blood Result (11/29/2013 7:46 AM EDT) Component Value Ref Test Analysis Performed At Patholo gist Range Method Time Signature BKV Blood Not Detected CERNER Result MILLENNIUM BKV Blood BK Virus Blood Result Interpretation [facility] Interp [facility] Result: BK Virus not detected log concentration (copies/mL): ??Not detected Assay Range: ??plasma: 3.04-9.04 log copy lathe operator ies/mL (1.1x10^3 - 1.1x10^9 copies/mL) Results are reported as log copies/mL. ??Changes of less than 1.0 log between serial samples may not be clinically significant. Methods: Quantitative real-time polymerase chain react ion (PCR) of viral DNA isolated from plasma was performed using Zando BKV (ASR) re agents and the Applied [employer] FAST Real-Time PCR System. In additi on, the ??PCR product sequence is confirmed using physical properties (bria ting curve analysis). This test was developed and its performance determined by the [facility] Molecular Pathology Laboratory. It has not [...] Organization Address City/State/ZIP Code Phon e Number [place] [phone]OS[address]ITAL [address] [facility] Uric acid (11/29/2013 7:46 AM EDT) P athologist Signature Uric Acid 6.8 3.5 - 8.5 CERNER mg/dL [facility] Specimen Anatomical Collection Method Collection Time Receive d Time (Source) Location / / Volume Laterality Blood specimen 11/29/2013 7:46 AM 014 7:51 (specimen) EDT AM EDT Resulting Agency Comment Spec In Lab Eriberto Melgar MD CHEMISTRY ORDERABLES Performing Organization Address City/[facility]/ZIP Code Phon e Number [address] CERNER MILLENNIUM Cholesterol, total (11/29/2013 7:46 AM EDT) athologist Signature Chol, Total 130 <=199 mg/dL CERNER MILLENNIUM Comment: Recommendations of the NCEP Adult Treatm ent Panel for the following risk cutoff thresholds for the [place] populatio n: Desirable: <200 mg/dL Borderline High: 200-239 mg/dL High: > or = 240 mg/dL Specimen Anatomical Collection Method Collection Time Receive d Time (Source) Location / / Volume Laterality Blood specimen 11/29/2013 7:46 AM 014 7:51 (specimen) EDT AM EDT Resulting Agency Comment Spec In Lab Eriberto Melgar MD CHEMISTRY ORDERABLES Performing Organization Address City/[facility]/ZIP Code Phon e Number [address] CERNER MILLENNIUM Amylase (11/29/2013 7:46 AM EDT) athologist Signature Amylase 41 28 - 100 CERNER unit/L MILLENNIUM Specimen Anatomical Collection Method Collection Time Receive d Time (Source) Location / / Volume Laterality Blood specimen 11/29/2013 7:46 AM 014 7:50 (specimen) EDT AM EDT Resulting Agency Comment Spec In Lab Eriberto Melgar MD CHEMISTRY ORDERABLES Performing Organization Address City/[facility]/ZIP [facility] [place] [address] CERNER MILLENNIUM Lipase (11/29/2013 [...] Organization Address City/State/[place] [address] CERNER MILLENNIUM Comprehensive metabolic [...] intervals supplied above were not validated at [facility]. Results from pediatri c patients should [...] MD CHEMISTRY ORDERABLES Performing Organization Address [facility] Phon e Number [address] CERNER MILLENNIUM Magnesium (11/29/2013 7:46 AM EDT) P athologist Signature Magnesium 0.70 0.69 - 1.07 CERNER mmol/L MILLENNIUM Specimen Anatomical Collection Method Collection Time Receive d Time (Source) Location / / Volume Laterality Blood specimen 11/29/2013 7:46 AM 014 7:50 (specimen) EDT AM EDT Resulting Agency Comment Spec In Lab Eriberto Melgar MD CHEMISTRY ORDERABLES Performing Organization Address [facility] Phon e Number [address] CERNER MILLENNIUM Phosphorus (11/29/2013 7:46 AM EDT) P athologist Signature Phosphorus 3.7 2.5 - 4.5 CERNER mg/dL MILLENNIUM Specimen Anatomical Collection Method Collection Time Receive d Time (Source) Location / / Volume Laterality Blood specimen 11/29/2013 7:46 AM 014 7:50 (specimen) EDT AM EDT Resulting Agency Comment Spec In Lab Eriberto Melgar MD CHEMISTRY ORDERABLES Performing Organization Address [facility]/State/ZIP Code Phon e Number [address] CERNER MILLENNIUM Tacrolimus level [...] Melgar MD CHEMISTRY ORDERABLES Performing Organization Address City/[facility]/ZIP Code Phon e Number [address] CERNER MILLENNIUM Reticulocyte Count [...] Melgar MD HEMATOLOGY ORDERABLES Performing Organization Address City/[facility]/ZIP Code Phon e Number [address] CERNER MILLENNIUM (ABNORMAL) CBC [...] Platelets 186 145 - 370 x10(3)/mcL CERNER RI LLENNIUM RDWSD 41.0 35.0 - 46.0 fL [...] Melgar MD HEMATOLOGY ORDERABLES Performing Organization Address City/[facility]/ZIP Code Phon e Number [address] CERNER MILLENNIUM IgM (11/29/2013 7:46 AM EDT) P athologist Signature IgM 46 40 - 230 CERNER mg/dL MILLENNIUM Specimen Anatomical Collection Method Collection Time Receive d Time (Source) Location / / Volume Laterality Blood specimen 11/29/2013 7:46 AM 014 7:50 (specimen) EDT AM EDT Resulting Agency Comment Spec In Lab Eriberto Melgar MD IMMUNOLOGY ORDERABLES Performing Organization Address City/[facility]/ZIP Code Phon e Number [address] CERNER MILLENNIUM IgG (11/29/2013 [...] Address City/State/ZIP Code Phon e Number [address] CERNER MILLENNIUM IgA (11/29/2013 7:46 AM EDT) P athologist Signature IgA 74 70 - 400 CERNER mg/dL MILLENNIUM Specimen Anatomical Collection Method Collection Time Receive d Time (Source) Location / / Volume Laterality Blood specimen 11/29/2013 7:46 AM 014 7:50 (specimen) EDT AM EDT Resulting Agency Comment Spec In Lab Eriberto Melgar MD IMMUNOLOGY ORDERABLES Performing Organization Address City/[facility]/ZIP Code Phon e Number [address] CERNER MILLENNIUM documented in this encounter Visit Diagnoses Diagnosis Need for prophylactic immunotherapy Status post pancreas transplantation 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 documented in this encounter Care Teams Flour Broker Relationship Specialty Start Date End Date Anna Mullen MD PCP - General 12/03/10 [address] [place] [address] documented as of this encounter
--- OUTSIDE RECORDS SUMMARY | 2022-04-04 00:49 | XMS_ITS | Encounter Summary ---
:1965 Author Organization [facility] [place] [address] Care Team Providers Name Role Phone Anna Mullen MD Primary Care Provider Reason for Visit Reason Onset Date Comments Medication Refill 11/30/2013 Encounter Details Date Type Department Care Team Description 11/30/2013 Refill Solid Organ Transplant at Eriberto Emery MD [facility] Unique pham [place] [address] [place] [address] [phone] (Wo rk) Social History Tobacco Use Types [...] filedocumented in this encounter Care Teams Child Care Provider Relationship Specialty Start Date End Date Anna Mullen MD PCP - General 12/03/10 [address] [place], [place] [address] documented as of this encounter
--- OUTSIDE RECORDS SUMMARY | 2022-04-04 00:49 | XMS_ITS | Encounter Summary ---
:1965 Author Organization [facility] [place] [address] Care Team Providers Name Role Phone Anna Mullen MD Primary Care Provider Reason for Visit Reason Onset Date Comments Medication Refill 03/02/2014 Encounter Details Date Type Department Care Team Description 03/02/2014 Refill Solid Organ Transplant at Fermin Dozier MD [facility] Unique pham [place] [address] [place] [address] [phone] (Wo rk) Social History Tobacco Use Types [...] on filedocumented in this encounter Care Teams Event Sales Representative Relationship Specialty Start Date End Date Anna Mullen MD PCP - General 12/03/10 [address] [place], [place] [address] documented as of this encounter
--- OUTSIDE RECORDS SUMMARY | 2022-04-04 00:49 | XMS_ITS | Encounter Summary ---
:1965 Author Organization [facility] [place] [address] Care Team Providers Name Role Phone Anna Mullen MD Primary Care Provider Reason for Visit Reason Comments Pancreas Transplant Follow-up Encounter Details Date Type Department Care Team Description 01/24/2014 Office Visit Solid Organ [place]ob[place], Need for prophy lactic immunotherapy; [place] at [facility] Eriberto Stoddard MD Status post pancreas transplantation [facility] [address] [place], [place] [address] SURGERY [phone] [place], [place] [address] Social History Tobacco Use Types [...] Mckay, RD - 01/24/2014 12:00 PM EDT [facility] Post Transplant Nutrition Follow Up Date: 01/24/2014 Patient: Richard Hsu Transplant Date: 08/28/13 [place] organ UNOS diagnosis: Diabetes Mellitus - Type [...] Melgar MD - 01/16/2014 7:25 AM EDT [facility] Transplant Nephrology Follow Up Date: 01/24/2014 Patient: Richard Hsu Transplant Date: 08/28/13 Organ(s) Pancreas [place] organ diagnosis: Diabetes Mellitus - Type I [...] virus only) ??? Hepatitis C Screening (B. [id number]) ??? Pneumovax Q5 years ??? Yearly ophthalmology [...] GI ENDOSCOPY performed by CLAYTON BHAKTA at [facility] ENDOSCOPY ??? Upper gi endoscopy, biopsy 12/31/2011 UPPER GASTROINTESTINAL ENDOSCOPY,WITH BIOPSY SINGLE OR MULTIPLE performed by CLAYTON BHAKTA at [facility] ENDOSCOPY ??? Shoulder surgery ??? Carpal tunnel release ??? Appendectomy ??? Musculoskeletal surgery unlisted 10 years carpel tunnel ??? 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 Transplant allograft pancreas 08/28/2013 @PANCREATIC TRANSPLANT performed by Iraj Keller MD at [facility] MAIN OR ??? Transplant, prep donor pancreas 08/28/2013 @PREPARATION CADAVERIC PANCREAS, STANDARD performed by Iraj Keller MD at [facility] MAIN OR Family History Problem Relation [...] Centigrade). 30 tablet ??? Diabetic Supplies, [facility]. [facility] for testing supplies 10 times per [id number] each 12 ??? sildenafil (VIAGRA) 100 mg [...] Neg 11/15/2012 1109 VZVIGG Pos 08/28/2013 0134 [id number] Pos* 11/15/2012 1109 [id number] Neg 11/15/2012 1109 HEPCAB Negative 08/28/2013 0134 [...] City/State/ZIP Code Phon e Number [place] [phone] CERNER MILLENNIUM Urinalysis with [...] UA Clear Clear CERNER MILLENNIU M Spec [place] UA 1.008 1.002 - 1.030 CERNER MIL [...] Organization Address City/State/[place] [address] [facility] BK Quant Blood Result (01/24/2014 7:36 AM EDT) Component Value Ref Test Analysis Performed At [facility] Range Method Time Signature BKV Blood Not Detected CERNER Result MILLENNIUM BKV Blood BK Virus Blood Result Interpretation CERNER Interp MILLENNIUM Result: BK Virus not detected log concentration (copies/mL): ??Not detected Assay Range: ??plasma: 3.04-9.04 log nuclear spectroscopist ies/mL (1.1x10^3 - 1.1x10^9 copies/mL) Results are reported as log copies/mL. ??Changes of less than 1.0 log between serial samples may not be clinically significant. Methods: Quantitative real-time polymerase chain react ion (PCR) of viral DNA isolated from plasma was performed using [employer] BKV (ASR) re agents and the [employer] FAST Real-Time PCR System. In additi on, the ??PCR product sequence is confirmed using physical properties (bria ting curve analysis). This test was developed and its performance determined by the [facility] Molecular Pathology Laboratory. It has not been [...] City/State/ZIP Code Phon e Number [place] [phone] CERNER MILLENNIUM Differential, Automated [...] Melgar MD HEMATOLOGY ORDERABLES Performing Organization Address City/[facility]/[place] [address] CERNER MILLENNIUM (ABNORMAL) Hemogram [...] Melgar MD HEMATOLOGY ORDERABLES Performing Organization Address City/[facility]/[place] [address] CERNER MILLENNIUM (ABNORMAL) Hemoglobin A1c (01/24/2014 7:36 AM EDT) Analysis Performed At [facility] Time Signature Hemoglobin A1C 5.7 (H) <=5.6 % [facility] Comment: As of 2013 the methodology for [...] 36: Suppl. 1, S67-17 Est Avg Gluc 117 mg/dL [facility] Comment: eAG equivalents for HbA1c percentages: HbA1c(%) ?eAG(mg/dL) 6.0 ?126 6.5 ?140 7.0 ?154 7.5 ?169 8.0 ?183 8.5 ?197 9.0 ?212 9.5 ?226 10.0 ? 240 Limitations: The eAG calculation has not been validated on women, individuals below 18 years old and above 70 years old, and individuals with hemoglobinopathies. Additional resources are available on e ADA website: ??http://professional.diabetes.org/gluc osecalculator.aspx Edinson GRISSOM, aNthaniel Adame, Ari Alejandro, et al. ??Tr anslating the A1C assay into estimated average glucose values. ??Diabetes Care 2008:31(8):2310-5972. Specimen Anatomical Collection Method Collection Time Receive d Time (Source) Location / / Volume Laterality Blood specimen 01/24/2014 7:36 AM 014 7:41 (specimen) EDT AM EDT Resulting Agency Comment Spec In Lab Eriberto Melgar MD CHEMISTRY ORDERABLES Performing Organization Address City/[facility]/ZIP Code Phon e Number [address] CERNER MILLENNIUM Amylase (01/24/2014 7:36 AM EDT) athologist Signature Amylase 45 28 - 100 CERNER unit/L MILLENNIUM Specimen Anatomical Collection Method Collection Time Receive d Time (Source) Location / / Volume Laterality Blood specimen 01/24/2014 7:36 AM 014 7:41 (specimen) EDT AM EDT Resulting Agency Comment Spec In Lab Eriberto Melgar MD CHEMISTRY ORDERABLES Performing Organization Address City/[facility]/ZIP Code Phon e Number [address] CERNER MILLENNIUM Lipase (01/24/2014 7:36 AM EDT) athologist Signature Lipase 19 0 - 60 CERNER unit/L MILLENNIUM Specimen Anatomical Collection Method Collection Time Receive d Time (Source) Location / / Volume Laterality Blood specimen 01/24/2014 7:36 AM 014 7:41 (specimen) EDT AM EDT Resulting Agency Comment Spec In Lab Eriberto Melgar MD CHEMISTRY ORDERABLES Performing Organization Address City/[facility]/ZIP Code Phon e Number [address] CERNER MILLENNIUM (ABNORMAL) Comprehensive metabolic panel (non-fasting) (01/24/2014 7:36 AM EDT) P athologist Signature Glucose Lvl 108 60 - 199 CERNER mg/dL [facility] Comment: Diabetes: >=200 mg/dL plus symp toms BUN 9 (L) 10 - 20 mg/dL CERNER MILLENNIU M Creatinine 0.97 0.80 - 1.50 mg/dL CERNER MILL ENNIUM Comment: Please note that the pediatric reference intervals supplied above were not validated at [facility]. Results from pediatri c patients should be [...] Melgar MD CHEMISTRY ORDERABLES Performing Organization Address City/[facility]/ZIP Code Phon e Number [address] CERNER MILLENNIUM (ABNORMAL) Magnesium (01/24/2014 7:36 AM EDT) P athologist Signature Magnesium 0.67 (L) 0.69 - 1.07 CERNER mmol/L MILLENNIUM Specimen Anatomical Collection Method Collection Time Receive d Time (Source) Location / / Volume Laterality Blood specimen 01/24/2014 7:36 AM 014 7:41 (specimen) EDT AM EDT Resulting Agency Comment Spec In Lab Eriberto Melgar MD CHEMISTRY ORDERABLES Performing Organization Address City/[facility]/ZIP Code Phon e Number [address] CERNER MILLENNIUM Phosphorus (01/24/2014 7:36 AM EDT) P athologist Signature Phosphorus 3.4 2.5 - 4.5 CERNER mg/dL MILLENNIUM Specimen Anatomical Collection Method Collection Time Receive d Time (Source) Location / / Volume Laterality Blood specimen 01/24/2014 7:36 AM 014 7:41 (specimen) EDT AM EDT Resulting Agency Comment Spec In Lab Eriberto Melgar MD CHEMISTRY ORDERABLES Performing Organization Address City/[facility]/ZIP [facility] Phon e Number [address] CERNER MILLENNIUM Uric acid (01/24/2014 7:36 AM EDT) P athologist Signature Uric Acid 6.4 3.5 - 8.5 CERNER mg/dL MILLENNIUM Specimen Anatomical Collection Method Collection Time Receive d Time (Source) Location / / Volume Laterality Blood specimen 01/24/2014 7:36 AM 014 7:41 (specimen) EDT AM EDT Resulting Agency Comment Spec In Lab Eriberto Melgar MD CHEMISTRY ORDERABLES Performing Organization Address City/[facility]/[place] [address] CERNER MILLENNIUM Tacrolimus level [...] Melgar MD CHEMISTRY ORDERABLES Performing Organization Address City/[facility]/[place] [address] CERNER MILLENNIUM Reticulocyte Count [...] Melgar MD HEMATOLOGY ORDERABLES Performing Organization Address City/[facility]/[place] [address] CERNER MILLENNIUM Cholesterol, total (01/24/2014 7:36 AM EDT) athologist Signature Chol, Total 108 <=199 mg/dL CERNER MILLENNIUM Comment: Recommendations of the NCEP Adult Treatm ent Panel for the following risk cutoff thresholds for the [place] populatio n: Desirable: <200 mg/dL Borderline High: 200-239 mg/dL High: > or = 240 mg/dL Specimen Anatomical Collection Method Collection Time Receive d Time (Source) Location / / Volume Laterality Blood specimen 01/24/2014 7:36 AM 014 7:41 (specimen) EDT AM EDT Resulting Agency Comment Spec In Lab Eriberto Melgar MD CHEMISTRY ORDERABLES Performing Organization Address City/[facility] [place] [address] CERNER MILLENNIUM CMV PCR, Quantitative (01/24/2014 7:36 AM EDT) [facility] Method Time Signature CMV DNA PCR Undetected Undetected CERNER Quant IU/mL [facility] Comment: Result in log IU/mL is Undetected. The quantification range of this assay i s 137 to 9,100,000 IU/mL (2.14 log to 6.96 log IU/mL) with a limit of detection at 91 IU/mL (1.96 log IU/mL). Testing was performed by the [employer] AmpliPrep/ARNAUD T aqMan CMV Test ([employer] Test Performed by: [place] [address] Sales Administrator: Sarita Beach, Ph. D. Specimen Anatomical Collection Method Collection Time Receive d Time (Source) Location / / Volume Laterality Blood specimen 01/24/2014 7:36 AM 014 2:55 (specimen) EDT PM EDT Resulting Agency Comment Spec In Lab Eriberto Melgar MD IMMUNOLOGY ORDERABLES Performing Organization Address City/[facility]/[place] [address] CERNER LARRYENNIUM CMV Antibody, [...] Organization Address City/State/ZIP Code Phon e Number [address] [facility] CMV Antibody, IgG (01/24/2014 7:36 AM EDT) P athologist Signature CMV IgG Pos Neg [facility] Specimen Anatomical Collection Method Collection Time Receive d Time (Source) Location / / Volume Laterality Blood specimen 01/24/2014 7:36 AM 014 8:01 (specimen) EDT AM EDT Resulting Agency Comment Spec In Lab Eriberto Melgar MD IMMUNOLOGY ORDERABLES Performing Organization Address City/[facility]/ZIP Code Phon e Number [address] [facility] documented in this encounter Visit Diagnoses Diagnosis Need for prophylactic immunotherapy Status post pancreas transplantation 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 documented in this encounter Care Teams Business Management Manager Relationship Specialty Start Date End Date Anna Mullen MD PCP - General 12/03/10 [address] [place] [address] documented as of this encounter
--- OUTSIDE RECORDS SUMMARY | 2022-04-04 00:49 | XMS_ITS | Encounter Summary ---
:1965 Author Organization [facility] [place] [address] Care Team Providers Name Role Phone Anna Mullen MD Primary Care Provider Encounter Details Date Type Department Care Team Description 04/29/2014 Hospital Encounter Laboratory [facility] [place] [address] TRANSPLANT SURGE [place], [place] [address] (Wo rk) Social History [...] code :250.60 Diabetic Supplies, Fax form to [facility] 100 each 12 05/10/2014 1 Miscellan. [facility] for testing supplies 10 times per [...] 38.5 Centigrade). Diabetic Supplies, Fax form to [facility] 100 each 12 09/02/2013 0 05/10/2014 Miscellan. [facility] for testing supplies 10 times per [...] Organization Address City/State/[place] [address] CERNER MILLENNIUM documented in this encounter Visit Diagnoses Not on filedocumented in this encounter Care Teams Wrapping Machine Operator Relationship Specialty Start Date End Date Anna Mullen MD PCP - General 12/03/10 [address] [place] [address] documented as of this encounter
--- OUTSIDE RECORDS SUMMARY | 2022-04-04 00:49 | XMS_ITS | Encounter Summary ---
:1965 Author Organization [facility] [place] [address] Care Team Providers Name Role Phone Anna Mullen MD Primary Care Provider Encounter Details Date Type Department Care Team Description 05/23/2014 Telephone Spine Center at [facility] non Erin Asif, [place] [address] Social History Tobacco Use Types Packs/Day [...] on filedocumented in this encounter Care Teams Building Drafter Relationship Specialty Start Date End Date Anna Mullen MD PCP - General 12/03/10 [address] [place] [address] documented as of this encounter
--- OUTSIDE RECORDS SUMMARY | 2022-04-04 00:50 | XMS_ITS | Encounter Summary ---
:1965 Author Organization [facility] [place] [address] Care Team Providers Name Role Phone Anna Mullen MD Primary Care Provider Encounter Details Date Type Department Care Team Description 11/18/2013 Hospital Encounter Laboratory [facility] [place] [address] TRANSPLANT SURGE [place], [place] [address] (Wo rk) Social History Tobacco [...] 38.5 Centigrade). Diabetic Supplies, Fax form to [facility] 100 each 12 09/02/2013 0 05/10/2014 [...] Organization Address City/State/[place] [address] [employer] documented in this encounter Visit Diagnoses Not on filedocumented in this encounter Care Teams Show Card Writer Relationship Specialty Start Date End Date Anna Mullen MD PCP - General 12/03/10 [address] [place] [address] documented as of this encounter
--- OUTSIDE RECORDS SUMMARY | 2022-04-04 00:50 | XMS_ITS | Encounter Summary ---
:1965 Author Organization [facility] Address [facility] [place] [address] Care Team Providers Name Role Phone Anna Mullen MD Primary Care Provider Encounter Details Date Type Department Care Team Description 11/17/2013 Orders Only Solid Organ Eriberto Melgar Need for prophylactic immunotherapy; [place] [facility] [place] Status post pancreas transplantation; [facility] [address] [place] [address] [place] [address] [phone] Social History Tobacco Use Types Packs/Day Years [...] post pancreas transplantation 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 BK viruria Other nonspecific finding on examination of urine documented in this encounter Care Teams Business Unit Controller Relationship Specialty Start Date End Date Anna Mullen MD PCP - General 12/03/10 [address] [place], [place] [id number] documented as of this encounter
--- OUTSIDE RECORDS SUMMARY | 2022-04-04 00:50 | XMS_ITS | Encounter Summary ---
:1965 Author Organization [facility] [place] [address] Care Team Providers Name Role Phone Anna Mullen MD Primary Care Provider Encounter Details Date Type Department Care Team Description 11/08/2013 Telephone Solid Organ [facility]a [facility] [place] [address] Social History Tobacco Use Types Packs/Day [...] filedocumented in this encounter Care Teams Jewel Bearing Grinder Relationship Specialty Start Date End Date Anna Mullen MD PCP - General 12/03/10 [address] [place] [address] documented as of this encounter
--- OUTSIDE RECORDS SUMMARY | 2022-04-04 00:50 | XMS_ITS | Encounter Summary ---
:1965 Author Organization [facility] [address] Care Team Providers Name Role Phone Anna Mullen MD Primary Care Provider Encounter Details Date Type Department Care Team Description 10/18/2013 Hospital Encounter XRay at [facility] Pain in right elbow [address] [facility] [place] [address] Social History Tobacco Use Types Packs/Day [...] 38.5 Centigrade). Diabetic Supplies, Fax form to [facility] 100 each 12 09/02/2013 0 05/10/2014 Edevatecellan. [facility] for testing supplies [...] Film and interpretation reviewed by the attending Leean Nicholson MD IMG DX ORDERABLES documented in this encounter Visit Diagnoses Diagnosis Pain in right elbow Pain in joint, upper arm documented in this encounter Care Teams Film Maker Relationship Specialty Start Date End Date Anna Mullen MD PCP - General 12/03/10 [address] [place] [address] documented as of this encounter
--- OUTSIDE RECORDS SUMMARY | 2022-04-04 00:50 | XMS_ITS | Encounter Summary ---
:1965 Author Organization [facility] [place] [address] Care Team Providers Name Role Phone Anna Mullen MD Primary Care Provider Encounter Details Date Type Department Care Team Description 11/01/2013 Orders Only [facility] is, spinal, [place]ENO lumbar Pending [facility] [place] [address] [facility] [phone] [place], [place] [address] Social History Tobacco Use Types [...] claudication documented in this encounter Care Teams Automobile Designer Relationship Specialty Start Date End Date Anna Mullen MD PCP - General 12/03/10 [address] [place], [place] [address] documented as of this encounter
--- OUTSIDE RECORDS SUMMARY | 2022-04-04 00:50 | XMS_ITS | Encounter Summary ---
:1965 Author Organization [facility] [place] [address] Care Team Providers Name Role Phone Anna Mullen MD Primary Care Provider Encounter Details Date Type Department Care Team Description 09/27/2013 Follow-Up [place] [address] Social History Tobacco Use Types Packs/Day [...] on filedocumented in this encounter Care Teams Caseworker Intake Relationship Specialty Start Date End Date Anna Mullen MD PCP - General 12/03/10 [address] [place], [place] [address] documented as of this encounter
--- OUTSIDE RECORDS SUMMARY | 2022-04-04 00:50 | XMS_ITS | Encounter Summary ---
:1965 Author Organization [facility] [place] [address] Care Team Providers Name Role Phone Anna Mullen MD Primary Care Provider Encounter Details Date Type Department Care Team Description 10/03/2013 Telephone Solid Organ Transpla [place] [facility] [place] [address] Social History Tobacco Use Types Packs/Day [...] Manzano - 10/03/2013 11:48 AM EST Transplant Delicatessen Slicer Note:Phone call from patient, reports that he was only able to get 9 Zofran today and his pharmacy tried each day over the weekend to run 36 pills based on info provided last week from his pharmacy insurance carrier. [employer] Coverage Review: [phone] contacted. I spoke to Shante, who stated [...] 10/17/2013. Called the patient's pharmacy, [facility]. Advised the pharmacist of the above information [...] on filedocumented in this encounter Care Teams African Studies Professor Relationship Specialty Start Date End Date Anna Muleln MD PCP - General 12/03/10 [address] [place] [address] documented as of this encounter
--- OUTSIDE RECORDS SUMMARY | 2022-04-04 00:50 | XMS_ITS | Encounter Summary ---
:1965 Author Organization [facility] Address [address] [place] [address] Care Team Providers Name Role Phone Anna Mullen MD Primary Care Provider Reason for Visit Reason Comments Pancreas Transplant Follow-up 08/28/2013 Encounter Details Date Type Department Care Team Description 09/27/2013 Office Visit Solid Organ Nasrin, Need for prophy lactic immunotherapy; Transplant at [facility] Loc Rey MD Status post pancreas transplantation [facility] [address] [place] [address] [place] [address] [phone] (Wo rk) Social History Tobacco Use Types [...] PM EST September 27, 2013 Richard Hsu [id number] TRANSPLANT NUTRITION Post-transplant Clinic follow-up note Richard [...] if that will help with his nausea. public relations coordinator helped him with medication questions. I provided patient with Post-Transplant Nutrition Lab Report and reviewed with him. No nutrition intervention required at this time; patient with improved p.o. Intake. Follow-up Interventions: Follow up with patient in 2 weeks. Remain available for any nutrition questions in the interim. Donna Blount - 09/27/2013 12:30 PM EST Transplant Lipstick Molder Note:Met with patient and his to review medication copay question. He reports 1. his copay for K-Phos is over $100 and 2. Zofran was limited to 12 pills dispensed.He has dual coverage with [employer], which he did not realize. His employer group plan is primary and his 's employer group plan is secondary. Primary [employer] plan ID: [id number] Secondary [employer] ID: [id number], BIN: [id number], PCN: [id number] GRP: [id number] $100 deductible, then [...] days. 14 each ??? Diabetic Supplies, Miscellan. [facility] [place] [facility] medical for testing supplies 10 times per [id number] each 12 ??? levothyroxine (SYNTHROID) 200 mcg [...] TRANSPLANT performed by Leilani Keller MD at [facility] MA[facility] OR ??? 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 He has done very [...] Urinalysis with microscopic (09/27/2013 10:06 AM EST) [facility] Method Time Signature Glucose UA Negative Negative [...] UA Clear Clear CERNER MILLENNIU M Spec [place] UA 1.015 1.002 - 1.030 [facility] MIL LENNIUM Color UA Yellow Yellow CERNER MILLENNIUM RBC UA Not Present 0 - 3 CERNER MILLENNIUM WBC UA 1 0 - 3 /HPF CERNER MILLENNIUM Squam Epith UA <1 <=4 /HPF CERNER MILLENNI UM Hyaline Cast UA 1 0 - 2 /LPF [facility] LALA NIUM Specimen Anatomical Collection Method Collection Time Receive d Time (Source) Location / / Volume Laterality Urine specimen 09/27/2013 10:06 4 (specimen) AM EST 10:11 AM EST Resulting Agency Comment Spec In Lab Loc Alexandra MD URINE ORDERABLES Performing Organization Address City/State/ZIP Code Phon e Number [place] [phone] CERNER MILLENNIUM (ABNORMAL) Differential, Automated (09/27/2013 10:03 AM EST) [facility] Method Time Signature Neutrophils % 89.2 (H) [...] Alexandra MD HEMATOLOGY ORDERABLES Performing Organization Address City/[facility]/ZIP Code Phon e Number [address] CERNER MILLENNIUM Prealbumin (09/27/2013 [...] Organization Address City/State/[place] [address] CERNER MILLENNIUM Lipase (09/27/2013 10:03 AM EST) athologist Signature Lipase 38 0 - 60 CERNER unit/L MILLENNIUM Specimen Anatomical Collection Method Collection Time Receive d Time (Source) Location / / Volume Laterality Blood specimen 09/27/2013 10:03 4 (specimen) AM EST 10:09 AM EST Resulting Agency Comment Spec In Lab Loc Alexandra MD CHEMISTRY ORDERABLES Performing Organization Address City/[facility] Phon e Number [address] [facility] Amylase (09/27/2013 10:03 AM EST) athologist Signature Amylase 70 28 - 100 CERNER unit/L [facility] Specimen Anatomical Collection Method Collection Time Receive d Time (Source) Location / / Volume Laterality Blood specimen 09/27/2013 10:03 4 (specimen) AM EST 10:09 AM EST Resulting Agency Comment Spec In Lab Loc Alexandra MD CHEMISTRY ORDERABLES Performing Organization Address City/[facility] Phon e Number [address] CERNER MILLENNIUM (ABNORMAL) Comprehensive metabolic panel (non-fasting) (09/27/2013 10:03 AM EST) athologist Signature Glucose Lvl 102 60 - 199 CERNER mg/dL [facility] Comment: Diabetes: >=200 mg/dL plus symp toms BUN 12 10 - 20 mg/dL CERNER MILLENNIU M Creatinine 1.06 0.80 - 1.50 mg/dL CERNER MILL ENNIUM Comment: Please note that the pediatric reference intervals supplied above were not validated at [facility]. Results from pediatri c patients should be [...] City/State/[place] [address] CERNER MILLENNIUM Magnesium (09/27/2013 10:03 AM EST) P athologist Signature Magnesium 0.79 0.69 - 1.07 CERNER mmol/L MILLENNIUM Specimen Anatomical Collection Method Collection Time Receive d Time (Source) Location / / Volume Laterality Blood specimen 09/27/2013 10:03 4 (specimen) AM EST 10:09 AM EST Resulting Agency Comment Spec In Lab Loc Alexandra MD CHEMISTRY ORDERABLES Performing Organization Address City/[facility]/ZIP Code Phon e Number [address] CERNER MILLENNIUM Phosphorus (09/27/2013 10:03 AM EST) athologist Signature Phosphorus 2.7 2.5 - 4.5 CERNER mg/dL MILLENNIUM Specimen Anatomical Collection Method Collection Time Receive d Time (Source) Location / / Volume Laterality Blood specimen 09/27/2013 10:03 4 (specimen) AM EST 10:09 AM EST Resulting Agency Comment Spec In Lab Loc Alexandra MD CHEMISTRY ORDERABLES Performing Organization Address City/[facility]/ZIP Code Phon e Number [address] CERNER MILLENNIUM Uric acid (09/27/2013 10:03 AM EST) athologist Signature Uric Acid 6.8 3.5 - 8.5 CERNER mg/dL MILLENNIUM Specimen Anatomical Collection Method Collection Time Receive d Time (Source) Location / / Volume Laterality Blood specimen 09/27/2013 10:03 4 (specimen) AM EST 10:09 AM EST Resulting Agency Comment Spec In Lab Loc Alexandra MD CHEMISTRY ORDERABLES Performing Organization Address City/[facility]/ZIP Code Phon e Number [address] CERNER MILLENNIUM Tacrolimus level [...] Alexandra MD CHEMISTRY ORDERABLES Performing Organization Address City/[facility] [place] [address] CERNER MILLENNIUM (ABNORMAL) Reticulocyte [...] Alexandra MD HEMATOLOGY ORDERABLES Performing Organization Address City/[facility] Phon e Number [address] CERNER MILLENNIUM (ABNORMAL) CBC [...] Alexandra MD HEMATOLOGY ORDERABLES Performing Organization Address City/[facility]/ZIP [facility] Phon e Number [address] [facility] LARRYENNIUM Cholesterol, total (09/27/2013 10:03 AM EST) P athologist Signature Chol, Total 135 <=199 mg/dL CERNER MILLENNIUM Comment: Recommendations of the NCEP Adult Treatm ent Panel for the following risk cutoff thresholds for the [place] populatio n: Desirable: <200 mg/dL Borderline High: 200-239 mg/dL High: > or = 240 mg/dL Specimen Anatomical Collection Method Collection Time Receive d Time (Source) Location / / Volume Laterality Blood specimen 09/27/2013 10:03 4 (specimen) AM EST 10:09 AM EST Resulting Agency Comment Spec In Lab Loc Alexandra MD CHEMISTRY ORDERABLES Performing Organization Address City/[facility]/ZIP [facility] Phon e Number [address] FARNAZ HERBERTIUM documented in this encounter Visit Diagnoses Diagnosis Need for prophylactic immunotherapy Status post pancreas transplantation 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 documented in this encounter Care Teams Commissioning Manager Relationship Specialty Start Date End Date Anna Mullen MD PCP - General 12/03/10 [address] [place] [address] documented as of this encounter
--- OUTSIDE RECORDS SUMMARY | 2022-04-04 00:50 | XMS_ITS | Encounter Summary ---
:1965 Author Organization [facility] [place] [address] Care Team Providers Name Role Phone Anna Mullen MD Primary Care Provider Reason for Visit Reason Comments Other Encounter Details Date Type Department Care Team Description 09/16/2013 Telephone Solid Organ Transplant at [facility], [place] [address] [place] [address] [phone] Social History Tobacco Use Types Packs/Day Years Used Date Never Smoker Smokeless Tobacco: Never Used Alcohol Use Standard Drinks/Week Comments No 0 (1 standard drink = 0.6 oz pure alcoho l) history of abuse, stopped 1996 Sex Assigned at Date Recorded Male 05/29/2021 11:28 PM EDT documented as of this encounter Miscellaneous Notes Telephone Encounter - Leilani Miguel I - 09/16/2013 8:36 AM EST Message copied by LEILANI MIGUEL I. on ThuSep 16, 2013 8:36 AM ------ Message from: AMALIA YADAV Created: ThuSep 16, 2013 8:16 AM Pt left voicemail yesterday at 3:30 pm with questions about antibiotics. I was not here late day and this message was not received. Can you please f/u with the patient? Thank you! Left message for patient to finish course of ABX and that CT-scan was fine. Told patient to call back if there is still confusion. documented in this encounter Plan of Treatment Not on filedocumented as of this encounter Visit Diagnoses Not on filedocumented in this encounter Care Teams Brooch And Bracelet Maker Relationship Specialty Start Date End Date Anna Mullen MD PCP - General 12/03/10 [address] [place] [address] documented as of this encounter
--- OUTSIDE RECORDS SUMMARY | 2022-04-04 00:50 | XMS_ITS | Encounter Summary ---
:1965 Author Organization [facility] Address [facility] [address] [place] [address] Care Team Providers Name Role Phone Anna Mullen MD Primary Care Provider Reason for Visit Reason Onset Date Comments Pancreas Transplant Follow-up Patient Not Seen 10/17/2013 Encounter Details Date Type Department Care Team Description 10/14/2013 Office Visit Solid Organ Eriberto Melgar Need for prophylactic immunotherapy; Transplant at [facility] MD Arlyn Status post pancreas transplantation; [facility] PAT IENT NOT SEEN [place] [address] [place] [address] [phone] Social History Tobacco Use Types Packs/Day Years [...] Urinalysis with microscopic (10/18/2013 7:37 AM EST) [facility] Method Time Signature Glucose UA Negative Negative [...] UA Clear Clear CERNER MILLENNIU M Spec [place] UA 1.022 1.002 - 1.030 CERNER MIL [...] Organization Address City/State/ZIP Code Phon e Number [place] [phone] CERNER MILLENNIUM CMV PCR, Quantitative (10/18/2013 7:28 AM EST) [facility] Method Time Signature CMV DNA PCR Undetected Undetected CERNER Quant IU/mL MILLENNIUM Comment: Result in log IU/mL is Undetected. The quantification range of this assay i s 137 to 9,100,000 IU/mL (2.14 log to 6.96 log IU/mL) with a limit of detection at 91 IU/mL (1.96 log IU/mL). Testing was performed by the [employer] AmpliPrep/ARNAUD T aqMan CMV Test ([employer] Test Performed by: [address], [place] [address] Stitcher Operator: Sarita Beach, Ph. D. Specimen Anatomical Collection Method Collection Time Receive d Time (Source) Location / / Volume Laterality Blood specimen 10/18/2013 7:28 AM 014 2:47 (specimen) EST PM EST Resulting Agency Comment Spec In Lab Eriberto Melgar MD IMMUNOLOGY ORDERABLES Performing Organization Address City/[facility] Phon e Number [address] CERNER MILLENNIUM Amylase (10/18/2013 7:28 AM EST) athologist Signature Amylase 52 28 - 100 CERNER unit/L MILLENNIUM Specimen Anatomical Collection Method Collection Time Receive d Time (Source) Location / / Volume Laterality Blood specimen 10/18/2013 7:28 AM 014 7:32 (specimen) EST AM EST Resulting Agency Comment Spec In Lab Eriberto Melgar MD CHEMISTRY ORDERABLES Performing Organization Address City/[facility] Code Phon e Number [address] CERNER MILLENNIUM Lipase (10/18/2013 7:28 AM EST) athologist Signature Lipase 27 0 - 60 CERNER unit/L MILLENNIUM Specimen Anatomical Collection Method Collection Time Receive d Time (Source) Location / / Volume Laterality Blood specimen 10/18/2013 7:28 AM 014 7:32 (specimen) EST AM EST Resulting Agency Comment Spec In Lab Eriberto Melgar MD CHEMISTRY ORDERABLES Performing Organization Address City/[facility] Phon e Number [address] CERNER MILLENNIUM Comprehensive metabolic panel (non-fasting) (10/18/2013 7:28 AM EST) P athologist Signature Glucose Lvl 131 60 - 199 CERNER mg/dL [facility] Comment: Diabetes: >=200 mg/dL plus symp toms BUN 14 10 - 20 mg/dL CERNER MILLENNIU M Creatinine 1.05 0.80 - 1.50 mg/dL CERNER MILL ENNIUM Comment: Please note that the pediatric reference intervals supplied above were not validated at [facility]. Results from pediatri c patients should be [...] Melgar MD CHEMISTRY ORDERABLES Performing Organization Address City/[facility]/ZIP [facility] Phon e Number [address] CERNER MILLENNIUM Magnesium (10/18/2013 7:28 AM EST) P athologist Signature Magnesium 0.74 0.69 - 1.07 CERNER mmol/L MILLENNIUM Specimen Anatomical Collection Method Collection Time Receive d Time (Source) Location / / Volume Laterality Blood specimen 10/18/2013 7:28 AM 014 7:32 (specimen) EST AM EST Resulting Agency Comment Spec In Lab Eriberto Melgar MD CHEMISTRY ORDERABLES Performing Organization Address City/[facility] Code Phon e Number [address] CERNER MILLENNIUM Phosphorus (10/18/2013 7:28 AM EST) P athologist Signature Phosphorus 2.8 2.5 - 4.5 CERNER mg/dL MILLENNIUM Specimen Anatomical Collection Method Collection Time Receive d Time (Source) Location / / Volume Laterality Blood specimen 10/18/2013 7:28 AM 014 7:32 (specimen) EST AM EST Resulting Agency Comment Spec In Lab Eriberto Melgar MD CHEMISTRY ORDERABLES Performing Organization Address City/[facility]/[place] [address] CERNER MILLENNIUM Uric acid [...] Organization Address City/State/[place] [address] CERNER MILLENNIUM Tacrolimus level [...] Melgar MD CHEMISTRY ORDERABLES Performing Organization Address City/[facility]/[place] [address] CERNER MILLENNIUM Reticulocyte Count [...] Organization Address City/State/[place] [address] CERNER MILLENNIUM (ABNORMAL) CBC [...] Melgar MD HEMATOLOGY ORDERABLES Performing Organization Address City/State/[facility] Code Phon e Number [address] CERNER MILLENNIUM Cholesterol, total (10/18/2013 7:28 AM EST) athologist Signature Chol, Total 124 <=199 mg/dL CERNER MILLENNIUM Comment: Recommendations of the NCEP Adult Treatm ent Panel for the following risk cutoff thresholds for the [place] populatio n: Desirable: <200 mg/dL Borderline High: 200-239 mg/dL High: > or = 240 mg/dL Specimen Anatomical Collection Method Collection Time Receive d Time (Source) Location / / Volume Laterality Blood specimen 10/18/2013 7:28 AM 014 7:32 (specimen) EST AM EST Resulting Agency Comment Spec In Lab Eriberto Melgar MD CHEMISTRY ORDERABLES Performing Organization Address City/[facility] [place] [address] CERNER MILLENNIUM documented in this encounter Visit Diagnoses Diagnosis Need for prophylactic immunotherapy Status post pancreas transplantation 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 PATIENT NOT SEEN documented in this encounter Care Teams Customer Support Consultant Relationship Specialty Start Date End Date Anna Mullen MD PCP - General 12/03/10 [address] [place] [address] documented as of this encounter
--- OUTSIDE RECORDS SUMMARY | 2022-04-04 00:50 | XMS_ITS | Encounter Summary ---
:1965 Author Organization [facility] Address [facility] [address] [place] [id number] Care Team Providers Name Role Phone Anna Mullen MD Primary Care Provider Reason for Referral Surgical (Urgent) - Closed Specialty Diagnoses / Procedures Referred By Contact Refer red To Contact Orthopaedics Diagnoses Pain in thoracic spine Low back pain Eriberto Melgar Zleb Spine 3d MD [facility] [address] [place] [address] [place] [address] Referral ID Status Reason Start Date Expiration Date Visits V isits Requested Authorized [id number] Closed Consult, 11/01/2013 04/30/2014 1 1 Test & Treat Reason for Visit Reason Comments Pancreas Transplant Follow-up Encounter Details Date Type Department Care Team Description 11/01/2013 Office Visit Solid Organ Eriberto Melgar Need for prophylactic immunotherapy; [place] [facility] [place] Arlyn Status post pancreas transplantation; [facility] Lucia n in thoracic spine; Drive DR Low back pain [place] [address] [place] [address] [phone] Social History Tobacco Use Types Packs/Day Years [...] PM EST November 01, 2013 Richard Hsu [id number] TRANSPLANT NUTRITION Post-transplant Clinic follow-up note Richard [...] MD - 11/01/2013 8:20 AM EST . [facility] Transplant Nephrology Follow Up Date: 11/01/2013 Patient: Richard Hsu Transplant Date: 08/28/13 [facility] UN[facility] diagnosis: Diabetes Mellitus - Type [...] virus only) ??? Hepatitis C Screening (B. [id number]) ??? Pneumovax Q5 years ??? Yearly ophthalmology [...] GI ENDOSCOPY performed by CLAYTON BHAKTA at [facility] ENDOSCOPY ??? Upper gi endoscopy, biopsy 12/31/2011 UPPER GASTROINTESTINAL ENDOSCOPY,WITH BIOPSY SINGLE OR MULTIPLE performed by CLAYTON BHAKTA at [facility] ENDOSCOPY ??? Shoulder surgery ??? Carpal tunnel release ??? Appendectomy ??? Musculoskeletal surgery unlisted 10 years carpel tunnel ??? 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 Transplant allograft pancreas 08/28/2013 @PANCREATIC TRANSPLANT performed by Iraj Keller MD at [facility] MAIN OR ??? Transplant, prep donor pancreas 08/28/2013 @PREPARATION CADAVERIC PANCREAS, STANDARD performed by Iraj Keller MD at [facility] MAIN OR Family History Problem Relation [...] Diabetic Supplies, Miscellan. Misc Fax form to [facility] medical for testing supplies 10 times per [id number] each 12 ??? levothyroxine (SYNTHROID) 200 mcg [...] recent primary infection with EBV. Test Performedby: [place] [address] Cemetery Worker: Sarita Beach, Ph.D. 01/21/2012 1615 EBVIGGAB Pos* [...] (ABNORMAL) Differential, Automated (11/01/2013 7:59 AM EST) [facility] gist Method Time Signature Neutrophils % 81.6 [...] Organization Address City/State/[place] [address] CERNER MILLENNIUM BK Quant Blood Result (11/01/2013 7:59 AM EST) Component Value Ref Test Analysis Performed At [facility] Range Method Time Signature BKV Blood Not Detected CERNER Result MILLENNIUM BKV Blood BK Virus Blood Result Interpretation CERNER Interp MILLENNIUM Result: BK Virus not detected log concentration (copies/mL): ??Not detected Assay Range: ??plasma: 3.04-9.04 log copy reader ies/mL (1.1x10^3 - 1.1x10^9 copies/mL) Results are reported as log copies/mL. ??Changes of less than 1.0 log between serial samples may not be clinically significant. Methods: Quantitative real-time polymerase chain react ion (PCR) of viral DNA isolated from plasma was performed using BISON BKV (ASR) re agents and the Applied Progeniq 7500 FAST Real-Time PCR System. In additi on, the ??PCR product sequence is confirmed using physical properties (bria ting curve analysis). This test was developed and its performance determined by the [facility] Molecular Pathology Laboratory. It has not been [...] Melgar MD HEMATOLOGY ORDERABLES Performing Organization Address City/[facility]/ZIP Code Phon e Number [address] CERNER MILLENNIUM Prealbumin (11/01/2013 [...] Melgar MD CHEMISTRY ORDERABLES Performing Organization Address City/[facility]/ZIP Code Phon e Number [address] CERNER MILLENNIUM Protein/Creatinine Ratio, [...] Melgar MD URINE ORDERABLES Performing Organization Address City/[facility]/ZIP [facility] Phon e Number [address] CERNER MILLENNIUM Amylase (11/01/2013 [...] Organization Address [facility] Phon e Number [address] CERNER MILLENNIUM Lipase (11/01/2013 7:59 AM EST) athologist Signature Lipase 21 0 - 60 CERNER unit/L MILLENNIUM Specimen Anatomical Collection Method Collection Time Receive d Time (Source) Location / / Volume Laterality Blood specimen 11/01/2013 7:59 AM 014 8:03 (specimen) EST AM EST Resulting Agency Comment Spec In Lab Eriberto Melgar MD CHEMISTRY ORDERABLES Performing Organization Address City/[facility] [place] [address] CERNER MILLENNIUM Comprehensive metabolic panel (non-fasting) (11/01/2013 7:59 AM EST) athologist Signature Glucose Lvl 90 60 - 199 CERNER mg/dL MILLENNIUM Comment: Diabetes: >=200 mg/dL plus symp toms BUN 11 10 - 20 mg/dL CERNER MILLENNIU M Creatinine 1.01 0.80 - 1.50 mg/dL CERNER MILL ENNIUM Comment: Please note that the pediatric reference intervals supplied above were not validated at [facility]. Results from pediatri c patients should be [...] M Calcium 9.8 8.5 - 10.5 mg/dL [facility] Total Protein 6.7 6.4 - 8.3 gm/dL CERNER MIL LENNIUM Albumin 4.4 3.2 - 5.2 gm/dL CERNER MILLENN IUM AST 21 0 - 39 unit/L CERNER MILLENNIU M ALT 19 0 - 55 unit/L CERNER MILLENNIU M Alk Phos 93 40 - 120 unit/L CERNER MILLENN IUM Total Bilirubin 0.7 0.2 - 1.3 mg/dL [facility] M ILLENNIUM Bili, Direct 0.2 0.0 - 0.3 mg/dL [facility] MILL ENNIUM Estimated GFR >60 >=60 CERNER [...] Organization Address City/State/[place] [address] CERGUILLERMINA JUAREZENNIUM (ABNORMAL) Magnesium [...] Melgar MD CHEMISTRY ORDERABLES Performing Organization Address City/[facility]/[place] [address] CERNER MILLENNIUM Phosphorus (11/01/2013 7:59 AM EST) P athologist Signature Phosphorus 3.2 2.5 - 4.5 CERNER mg/dL MILLENNIUM Specimen Anatomical Collection Method Collection Time Receive d Time (Source) Location / / Volume Laterality Blood specimen 11/01/2013 7:59 AM 014 8:03 (specimen) EST AM EST Resulting Agency Comment Spec In Lab Eriberto Melgar MD CHEMISTRY ORDERABLES Performing Organization Address City/[facility]/[place] [address] CERNER MILLENNIUM Uric acid (11/01/2013 7:59 AM EST) P athologist Signature Uric Acid 5.7 3.5 - 8.5 CERNER mg/dL MILLENNIUM Specimen Anatomical Collection Method Collection Time Receive d Time (Source) Location / / Volume Laterality Blood specimen 11/01/2013 7:59 AM 014 8:03 (specimen) EST AM EST Resulting Agency Comment Spec In Lab Eriberto Melgar MD CHEMISTRY ORDERABLES Performing Organization Address City/[facility]/[place] [address] CERNER MILLENNIUM Tacrolimus level [...] Melgar MD CHEMISTRY ORDERABLES Performing Organization Address City/[facility]/[place] [address] CERNER MILLENNIUM Reticulocyte Count [...] Organization Address City/State/ZIP Code Phon e Number [address] CERNER MILLENNIUM (ABNORMAL) CBC [...] Melgar MD HEMATOLOGY ORDERABLES Performing Organization Address City/[facility]/ZIP Code Phon e Number [address] [facility] MILLENNIUM Cholesterol, total (11/01/2013 7:59 AM EST) P athologist Signature Chol, Total 133 <=199 mg/dL CERNER MILLENNIUM Comment: Recommendations of the NCEP Adult Treatm ent Panel for the following risk cutoff thresholds for the [place] populatio n: Desirable: <200 mg/dL Borderline High: 200-239 mg/dL High: > or = 240 mg/dL Specimen Anatomical Collection Method Collection Time Receive d Time (Source) Location / / Volume Laterality Blood specimen 11/01/2013 7:59 AM 014 8:03 (specimen) EST AM EST Resulting Agency Comment Spec In Lab Eriberto Melgar MD CHEMISTRY ORDERABLES Performing Organization Address City/[facility]/ZIP Code Phon e Number [address] CERNER MILLENNIUM Urinalysis with [...] UA Clear Clear CERNER MILLENNIU M Spec [place] UA 1.008 1.002 - 1.030 CERNER MIL [...] Organization Address City/State/[place] [address] CERNER LARRYENNIUM documented in this encounter Visit Diagnoses Diagnosis Need for prophylactic immunotherapy Status post pancreas transplantation 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 Pain in thoracic spine Low back pain Lumbago documented in this encounter Care Teams Job Estimator Relationship Specialty Start Date End Date Anna Mullen MD PCP - General 12/03/10 [address] [place] [address] documented as of this encounter
--- OUTSIDE RECORDS SUMMARY | 2022-04-04 00:50 | XMS_ITS | Encounter Summary ---
:1965 Author Organization [facility] Address [facility] [place] [address] Care Team Providers Name Role Phone Anna Mullen MD Primary Care Provider Reason for Visit Reason Comments Pancreas Transplant Follow-up 08/28/2013 Encounter Details Date Type Department Care Team Description 09/20/2013 Office Visit Solid Organ Nasrin, Need for prophy lactic immunotherapy; Transplant at [facility] Kj Rey MD Status post pancreas transplantation [facility] Drive [place] [address] [place] [address] [phone] (Wo rk) Social History Tobacco Use Types [...] PM EST September 20, 2013 Richard Hsu [id number] TRANSPLANT NUTRITION Post-transplant Clinic follow-up note Richard [...] Diabetic Supplies, Miscellan. Misc Fax form to [facility] medical for testing supplies 10 times per [id number] each 12 ??? levothyroxine (SYNTHROID) 200 mcg [...] ENDOSCOPY performed by CLAYTON BHAKTA at [facility] ENDOSCOPY ??? Upper gi endoscopy, biopsy 12/31/2011 UPPER GASTROINTESTINAL ENDOSCOPY,WITH BIOPSY SINGLE OR MULTIPLE performed by CLAYTON BHAKTA at [facility] ENDOSCOPY ??? Shoulder surgery ??? Carpal tunnel release ??? Appendectomy ??? Musculoskeletal surgery unlisted 10 years carpel tunnel ??? 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 Transplant allograft pancreas 08/28/2013 @PANCREATIC TRANSPLANT performed by Iraj Keller MD at [facility] MAIN OR ??? Transplant, prep donor pancreas 08/28/2013 @PREPARATION CADAVERIC PANCREAS, STANDARD performed by Iraj Keller MD at [facility] MAIN OR FAMILY HISTORY: Family History [...] Urinalysis with microscopic (09/20/2013 9:43 AM EST) [facility] Method Time Signature Glucose [...] UA Clear Clear CERNER MILLENNIU M Spec [place] UA 1.026 1.002 - 1.030 CERNER MIL LENNIUM Color UA Yellow Yellow CERNER MILLENNIUM RBC UA <1 0 - 3 /HPF CERNER MILLENNIUM WBC UA 1 0 - 3 /HPF CERNER MILLENNIUM Squam Epith UA <1 <=4 /HPF CERNER MILLENNI UM Trans Epith UA <1 <=1 /HPF CERNER MILLENNI UM Hyaline Cast UA 7 (H) 0 - 2 /LPF [facility] LALA NIUM Specimen Anatomical Collection Method Collection Time Receive d Time (Source) Location / / Volume Laterality Urine specimen 09/20/2013 9:43 AM 014 9:50 (specimen) EST AM EST Resulting Agency Comment Spec In Lab Kj Alexandra MD URINE ORDERABLES Performing Organization Address City/State/ZIP Code Phon e Number [place] [id number] [address]OS[address] CERNER MILLENNIUM (ABNORMAL) Differential, Automated (09/20/2013 9:40 AM EST) [facility] Method Time Signature Neutrophils % 84.3 (H) [...] ORDERABLES Performing Organization Address City/[facility] e [address] CERNER MILLENNIUM Amylase (09/20/2013 9:40 AM EST) athologist Signature Amylase 48 28 - 100 CERNER unit/L MILLENNIUM Specimen Anatomical Collection Method Collection Time Receive d Time (Source) Location / / Volume Laterality Blood specimen 09/20/2013 9:40 AM 014 9:43 (specimen) EST AM EST Resulting Agency Comment Spec In Lab Kj Alexandra MD CHEMISTRY ORDERABLES Performing Organization Address City/[facility] Phon e [address] CERNER MILLENNIUM Lipase (09/20/2013 [...] Organization Address City/State/ZIP Code Phon e Number [place] [phone]OS[address] CERNER MILLENNIUM (ABNORMAL) Comprehensive [...] intervals supplied above were not validated at [facility]. Results from pediatri [...] Address City/State/ZIP Code Phon e Number [address] CERNER MILLENNIUM (ABNORMAL) Magnesium [...] [facility]/ZIP Code Phon e Number [address] CERNER MILLENNIUM Phosphorus (09/20/2013 [...] [facility]/[place] [address] CERNER MILLENNIUM Uric acid (09/20/2013 9:40 AM EST) P athologist Signature Uric Acid 6.3 3.5 - 8.5 CERNER mg/dL MILLENNIUM Specimen Anatomical Collection Method Collection Time Receive d Time (Source) Location / / Volume Laterality Blood specimen 09/20/2013 9:40 AM 014 9:43 (specimen) EST AM EST Resulting Agency Comment Spec In Lab Kj Alexandra MD CHEMISTRY ORDERABLES Performing Organization Address [facility] [place] [address] CERNER MILLENNIUM (ABNORMAL) Reticulocyte [...] [facility]/[place] [address] CERNER MILLENNIUM Tacrolimus level [...] ORDERABLES Performing Organization Address City/[facility] [place] [address] CERNER MILLENNIUM (ABNORMAL) CBC [...] [facility]/[place] [address] [facility] Cholesterol, total (09/20/2013 9:40 AM EST) P athologist Signature Chol, Total 136 <=199 mg/dL [facility] Comment: Recommendations of the NCEP Adult Treatm ent Panel for the following risk cutoff thresholds for the [place] populatio n: Desirable: <200 mg/dL Borderline High: 200-239 mg/dL High: > or = 240 mg/dL Specimen Anatomical Collection Method Collection Time Receive d Time (Source) Location / / Volume Laterality Blood specimen 09/20/2013 9:40 AM 014 9:43 (specimen) EST AM EST Resulting Agency Comment Spec In Lab Kj Alexandra MD CHEMISTRY ORDERABLES Performing Organization Address City/State/ZIP Code Phon e Number [address] [facility] documented in this encounter Visit Diagnoses Diagnosis Need for prophylactic immunotherapy Status post pancreas transplantation 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 documented in this encounter Care Teams Early Interventionist Relationship Specialty Start Date End Date Anna Mullen MD PCP - General 12/03/10 [address] [place] [address] documented as of this encounter
--- OUTSIDE RECORDS SUMMARY | 2022-04-04 00:50 | XMS_ITS | Encounter Summary ---
:1965 Author Organization [facility] [place] [address] Care Team Providers Name Role Phone Anna Mullen MD Primary Care Provider Encounter Details Date Type Department Care Team Description 09/30/2013 Telephone Endocrinology at [facility] [place] [address] Social History Tobacco Use Types Packs/Day [...] EST Message on endo nurse line from [facility] medical regarding CGM. Called patient who again states he does not want CGM nor sensor but does need Rx for One Touch ultra test strips. Per patient he will call [facility] also. Spoke with Andreea at [facility] medical who states they do have current Rx for testing supplies. Called patient left message on home v/m that Rx for One Touch test strips was not done as he has an active Rx. Telephone Encounter - Huyen Weldon LPN - 09/30/2013 3:25 PM EST Request from [facility] medical asking for order for CGM and sensors. Called patient who states he does notneed this as he received a pancreas transplant 08/28/13. Per patient he will call [facility] medical to notify them of this. Form faxed back also that patient does not need at this time. documented in this encounter Plan of Treatment Not on filedocumented as of this encounter Visit Diagnoses Not on filedocumented in this encounter Care Teams Spindle Maker Relationship Specialty Start Date End Date Anna Mullen MD PCP - General 12/03/10 [address] [place] [address] documented as of this encounter
--- OUTSIDE RECORDS SUMMARY | 2022-04-04 00:50 | XMS_ITS | Encounter Summary ---
:1965 Author Organization [place] [address] Care Team Providers Name Role Phone Anna Mullen MD Primary Care Provider Reason for Visit Reason Onset Date Comments Medication Refill 09/30/2013 Encounter Details Date Type Department Care Team Description 09/30/2013 Refill Solid Organ Transplant at [facility], Kj Rey MD [facility] [place] [address] [place] [address] [phone] (Wo rk) Social History Tobacco Use Types [...] filedocumented in this encounter Care Teams Hand Stonecutter Relationship Specialty Start Date End Date Anna Mullen MD PCP - General 12/03/10 [address] [place], [place] [address] documented as of this encounter
--- OUTSIDE RECORDS SUMMARY | 2022-04-04 00:50 | XMS_ITS | Encounter Summary ---
:1965 Author Organization [facility] [place] [address] Care Team Providers Name Role Phone Anna Mullen MD Primary Care Provider Encounter Details Date Type Department Care Team Description 10/04/2013 Notes Only Solid Organ Transpla nt at [facility] [place] [address] Social History Tobacco Use Types Packs/Day Years Used Date Never Smoker Smokeless Tobacco: Never Used Alcohol Use Standard Drinks/Week Comments No 0 (1 standard drink = 0.6 oz pure alcoho l) history of abuse, stopped 1996 Sex Assigned at Date Recorded Male 05/29/2021 11:28 PM EDT documented as of this encounter Progress Notes Donna Manzano - 10/04/2013 1:55 PM EST Transplant Flue Blower Note:Follow up regarding Zofran coverage by insurance. [...] filedocumented in this encounter Care Teams Assembly Repairer Relationship Specialty Start Date End Date Anna Mullen MD PCP - General 12/03/10 [address] [place] [address] documented as of this encounter
--- OUTSIDE RECORDS SUMMARY | 2022-04-04 00:50 | XMS_ITS | Encounter Summary ---
:1965 Author Organization [facility] [place] [address] Care Team Providers Name Role Phone Anna Mullen MD Primary Care Provider Encounter Details Date Type Department Care Team Description 11/05/2013 Telephone Solid Organ Transplant [place] [address] Social History Tobacco Use Types Packs/Day [...] on filedocumented in this encounter Care Teams Social Services Coordinator Relationship Specialty Start Date End Date Anna Mullen MD PCP - General 12/03/10 [address] [place] [address] documented as of this encounter
--- OUTSIDE RECORDS SUMMARY | 2022-04-04 00:50 | XMS_ITS | Encounter Summary ---
:1965 Author Organization [facility] [place] [address] Care Team Providers Name Role Phone Anna Mullen MD Primary Care Provider Encounter Details Date Type Department Care Team Description 09/16/2013 Hospital Laboratory Nasrin, Need for prophylactic immuno therapy; Encounter [facility] Coles Status post [place] [address] TRANSPLANT SURGERY [phone] [place], [place] [address] Social History Tobacco Use Types [...] 38.5 Centigrade). Diabetic Supplies, Fax form to [facility] 100 each 12 09/02/2013 0 05/10/2014 Miscellan. [facility] medical for testing supplies 10 [...] 10 (L) 20 - 40 CERNER mg/dL [facility] Comment: Prealbumin levels are generally lower in the pediatric population; adult concentrations are usually attained near puberty. Specimen Anatomical Collection Method Collection Time Receive d Time (Source) Location / / Volume Laterality Blood specimen 09/16/2013 10:42 4 (specimen) AM EST 10:46 AM EST Resulting Agency Comment Spec In Lab Kj Alexandra MD CHEMISTRY ORDERABLES Performing Organization Address City/State/[place] [address] [facility] documented in this encounter Visit Diagnoses Diagnosis Need for prophylactic immunotherapy Status post pancreas transplantation 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 documented in this encounter Care Teams Associate Chemist Relationship Specialty Start Date End Date Anna Mullen MD PCP - General 12/03/10 [address] [place] [address] documented as of this encounter
--- OUTSIDE RECORDS SUMMARY | 2022-04-04 00:50 | XMS_ITS | Encounter Summary ---
:1965 Author Organization [facility] [place] [address] Care Team Providers Name Role Phone Anna Mullen MD Primary Care Provider Encounter Details Date Type Department Care Team Description 11/07/2013 Follow-Up Neurology at [facility] Geoffrey Martinez Cubital tunnel syndrome on r ight; [facility] MD Brigitte Late effects of cerebrovascular disease; Drive [facility] Periodic headache syndrome, [place] [address] NEUROLOGY DEPT. [phone] [place], [place] [address] Social History Tobacco Use Types [...] Disease and Stroke Program [place] [address] t: [phone] / f: [phone] Date of Appointment: 11/07/2013 Patient: Richard Hsu [...] Centigrade). 30 tablet ??? Diabetic Supplies, Miscellan. [facility] Fax form to [facility] medical for testing supplies 10 times per [id number] each 12 ??? levothyroxine (SYNTHROID) 200 mcg [...] speech fluent/articulate, no dysarthria, paraphasic errors or maritn aphasia. No facial weakness or dysarthria. No [...] inosus documented in this encounter Care Teams Housekeeper Head Relationship Specialty Start Date End Date Anna Mullen MD PCP - General 12/03/10 [address] [place] [address] documented as of this encounter
--- OUTSIDE RECORDS SUMMARY | 2022-04-04 00:50 | XMS_ITS | Encounter Summary ---
:1965 Author Organization [facility] [place] [address] Care Team Providers Name Role Phone Anna Mullen MD Primary Care Provider Reason for Visit Reason Comments Diabetes Type 1 Encounter Details Date Type Department Care Team Description 10/28/2013 Office Visit Endocrinology at [facility] Arlyn Coles, H/O pancreas transplant; [facility] [place] [address] CENTER [phone] ENDOCRINOLOGY DEPT. [place], [place] [address] Social History Tobacco Use Types [...] Centigrade). 30 tablet ??? Diabetic Supplies, Miscellan. [facility] Fax form to [facility] medical for testing supplies 10 times per [id number] each 12 ??? levothyroxine (SYNTHROID) 200 mcg [...] children, two stepchildren. 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 He is a nonsmoker and quit [...] 0.22 (L) 0.27 - 4.20 CERNER mcIU/mL [facility] Specimen Anatomical Collection Method Collection Time Receive d Time (Source) Location / / Volume Laterality Blood specimen 05/31/2014 7:21 AM 014 7:33 (specimen) EDT AM EDT Resulting Agency Comment Spec In Lab Divya Coles MD CHEMISTRY ORDERABLES Performing Organization Address City/State/[place] [address] CERNER MILLENNIUM (ABNORMAL) Hemoglobin [...] Mellitus, Diabetes Care 2013; 36: Suppl. 1, J57-44 Est Avg Gluc 117 mg/dL CERNER MILLENNIUM Comment: eAG equivalents for HbA1c percentages: HbA1c(%) ?eAG(mg/dL) 6.0 ?126 6.5 ?140 7.0 ?154 7.5 ?169 8.0 ?183 8.5 ?197 9.0 ?212 9.5 ?226 10.0 ? 240 Limitations: The eAG calculation has not been validated on women, individuals below 18 years old and above 70 years old, and individuals with hemoglobinopathies. Additional resources are available on [facility] website: [email or web address] Edinson GRISSOM, Nathaniel J, Ari R, et al. ??Tr anslating the A1C assay into estimated average glucose values. ??Diabetes Care 2008:31(8):9130-9382. Specimen Anatomical Collection Method Collection Time Receive d Time (Source) Location / / Volume Laterality Blood specimen 05/31/2014 7:21 AM 014 7:33 (specimen) EDT AM EDT Resulting Agency Comment Spec In Lab Divya Coles MD CHEMISTRY ORDERABLES Performing Organization Address City/State/[place] [address] [address] [facility] documented in this encounter Visit Diagnoses Diagnosis H/O pancreas transplant 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 Hypothyroidism Unspecified hypothyroidism documented in this encounter Care Teams Fashion Adviser Relationship Specialty Start Date End Date Anna Mullen MD PCP - General 12/03/10 [address] [place] [address] documented as of this encounter
--- OUTSIDE RECORDS SUMMARY | 2022-04-04 00:50 | XMS_ITS | Encounter Summary ---
:1965 Author Organization [facility] Address [facility] [place] [address] Care Team Providers Name Role Phone Anna Mullen MD Primary Care Provider Encounter Details Date Type Department Care Team Description 09/13/[address] Scan at [facility], CONV Status post pancreas Encounter One Kj Mcmahon MD [facility] [place] [address] [place] [address] Social History Tobacco Use Types [...] 38.5 Centigrade). Diabetic Supplies, Fax form to [facility] 100 each 12 09/02/2013 0 05/10/2014 Miscellan. [facility] medical for testing supplies 10 times per [...] Routine documented in this encounter Care Teams Materials Management Supervisor Relationship Specialty Start Date End Date Anna Mullen MD PCP - General 12/03/10 [address] [place] [address] documented as of this encounter
--- OUTSIDE RECORDS SUMMARY | 2022-04-04 00:50 | XMS_ITS | Encounter Summary ---
:1965 Author Organization [facility] [place] [address] Care Team Providers Name Role Phone Anna Mullen MD Primary Care Provider Encounter Details Date Type Department Care Team Description 09/20/2013 Orders Only Solid Organ Transplant at Iraj Chappell I, [place] [address] [place] [address] [phone] Social History Tobacco Use Types Packs/Day Years [...] filedocumented in this encounter Care Teams Retail Analyst Relationship Specialty Start Date End Date Anna Mullen MD PCP - General 12/03/10 [address] [place] [address] documented as of this encounter
--- OUTSIDE RECORDS SUMMARY | 2022-04-04 00:50 | XMS_ITS | Encounter Summary ---
:1965 Author Organization [facility] [place] [address] Care Team Providers Name Role Phone Anna Mullen MD Primary Care Provider Encounter Details Date Type Department Care Team Description 09/16/2013 Follow-Up Solid [place] [address] Social History Tobacco Use Types Packs/Day [...] on filedocumented in this encounter Care Teams Collection Systems Administrator Relationship Specialty Start Date End Date Anna Mullen MD PCP - General 12/03/10 [address] [place], [place] [address] documented as of this encounter
--- OUTSIDE RECORDS SUMMARY | 2022-04-04 00:50 | XMS_ITS | Encounter Summary ---
:1965 Author Organization [facility] [place] [address] Care Team Providers Name Role Phone Anna Mullen MD Primary Care Provider Encounter Details Date Type Department Care Team Description 11/01/2013 Orders Only Solid Organ Transplant at Iraj Chappell I, [place] [address] [place] [address] [phone] Social History Tobacco Use Types Packs/Day Years [...] on filedocumented in this encounter Care Teams Regulatory Affairs Coordinator Relationship Specialty Start Date End Date Anna Mullen MD PCP - General 12/03/10 [address] [place] [address] documented as of this encounter
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
--- OUTSIDE RECORDS SUMMARY | 2022-04-04 00:50 | XMS_ITS | Encounter Summary ---
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
--- OUTSIDE RECORDS SUMMARY | 2022-04-04 00:50 | XMS_ITS | Encounter Summary ---
:1965 Author Organization [facility] Address [place] [id number] Care Team Providers Name Role Phone Anna Mullen MD Primary Care Provider Reason for Visit Reason Comments Right Elbow Pain Encounter Details Date Type Department Care Team Description 10/18/2013 Office Visit Orthopaedics at [facility] Leena Nicholson, Ulnar neuropathy, [facility] MD damon (Primary Dx) [place] [address] [place] [address] ORTHOPAEDIC SURGERY [place] [address] Social History Tobacco Use Types Packs/Day Years [...] plan documented above. Leena Nicholson M.D., M.S. Air Pumper of Orthopaedic Surgery Shoulder, Elbow, and Sports Medicine Department of Orthopaedic Surgery [place], [place] [address] Karlee Rouse PA - 10/18/2013 10:38 AM EST PATIENT NAME: Richard Hsu AGE: 48 y.o. MR#: [id number] DATE OF VISIT: 10/18/2013 DATE OF INJURY/ONSET: Summer 2012 STAFF: Dr. Nicholson CHIEF COMPLAINT: Right elbow pain/hand numbness HISTORY OF PRESENT ILLNESS: Mr. Hsu is a right hand dominant 48 y.o. male who comes into clinic today for evaluation of the right elbow. He was referred to [facility] Ortho by Anna Mullen. He has hadright elbow pain and hand numbness for approximately 6 months. He cannot recall any injuries to the elbow or hand. He has a previous history of right carpal tunnel syndrome which was treated surgicallyin [place]. He is happy with his results. He [...] GI ENDOSCOPY performed by CLAYTON BHAKTA at [facility] ENDOSCOPY ??? Upper gi endoscopy, biopsy 12/31/2011 UPPER GASTROINTESTINAL ENDOSCOPY,WITH BIOPSY SINGLE OR MULTIPLE performed by CLAYTON BHAKTA at [facility] ENDOSCOPY ??? Shoulder surgery ??? Carpal tunnel release ??? Appendectomy ??? Musculoskeletal surgery unlisted 10 years carpel tunnel ??? 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 Transplant allograft pancreas 08/28/2013 @PANCREATIC TRANSPLANT performed by Iraj Keller MD at [facility] MAIN OR ??? Transplant, prep donor pancreas 08/28/2013 @PREPARATION CADAVERIC PANCREAS, STANDARD performed by Iraj Keller MD at [facility] MAIN OR SOCIAL HX: Social History [...] concerns. The above documentation was completed using [employer] voice recognition software. documented in this encounter Plan of Treatment Not on filedocumented as of this encounter Visit Diagnoses Diagnosis Ulnar neuropathy, right - Primary documented in this encounter Care Teams Financial Aid Administrator Relationship Specialty Start Date End Date Anna Mullen MD PCP - General 12/03/10 [address] [place] [address] documented as of this encounter
--- OUTSIDE RECORDS SUMMARY | 2022-04-04 00:50 | XMS_ITS | Encounter Summary ---
:1965 Author Organization [facility] [place] [address] Care Team Providers Name Role Phone Anna Mullen MD Primary Care Provider Reason for Visit Reason Comments Pancreas Transplant Follow-up Hypertension Encounter Details Date Type Department Care Team Description 11/07/2013 Office Visit Solid Organ Eriberto Melgar Need for prophylactic immunotherapy; Transplant at [facility] [place] MD Arlyn Status post pancreas transplantation; Critical access hospital Hyp [address] [address] [place] [address] [phone] Social History Tobacco Use Types Packs/Day Years [...] MD - 11/07/2013 8:24 AM EDT . [facility] Transplant Nephrology Follow Up Date: 11/07/2013 Patient: Richard Hsu Transplant Date: 08/28/13 Tribal organ UNOS diagnosis: Diabetes Mellitus - Type I (Pancreas) Transplant: Mr. Richard Hsu is a White Not nor 48 y.o. male who is Status Post Pancreas transplantation on 08/28/13. Richard presents to clinic for follow-up of a telephone call over weekend about being SOB and lightheaded associated with high BP. [facility] 11/05/2013 Divya Dia, RN ?? Received a [...] to the Emergency Room. Hospital Course: Richard Hsu was taken to [...] virus only) ??? Hepatitis C Screening (B. [id number]) ??? Pneumovax Q5 years ??? Yearly ophthalmology [...] GI ENDOSCOPY performed by CLAYTON BHAKTA at [facility] ENDOSCOPY ??? Upper gi endoscopy, biopsy 12/31/2011 UPPER GASTROINTESTINAL ENDOSCOPY,WITH BIOPSY SINGLE OR MULTIPLE performed by CLAYTON BHAKTA at [facility] ENDOSCOPY ??? Shoulder surgery ??? Carpal tunnel release ??? Appendectomy ??? Musculoskeletal surgery unlisted 10 years carpel tunnel ??? 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 Transplant allograft pancreas 08/28/2013 @PANCREATIC TRANSPLANT performed by Iraj Keller MD at [facility] MAIN OR ??? Transplant, prep donor pancreas 08/28/2013 @PREPARATION CADAVERIC PANCREAS, STANDARD performed by Iraj Keller MD at [facility] MAIN OR Family History Problem Relation [...] Centigrade). 30 tablet ??? [facility], [facility]. [facility] for testing supplies 10 times per [id number] each 12 ??? levothyroxine (SYNTHROID) 200 mcg [...] primary infection with EBV. Test Performed by: [facility] [place] [address] Drier Operator: Sarita Beach, Ph.D. 01/21/2012 1615 EBVIGGAB [...] Urinalysis with microscopic (11/07/2013 1:26 PM EDT) [facility] Method Time Signature Glucose UA Negative Negative [...] UA Clear Clear CERNER MILLENNIU M Spec [place] UA 1.003 1.002 - 1.030 CERNER MIL [...] Code Phon e Number TIFFANI [place] [phone] [address] CERNER MILLENNIUM (ABNORMAL) Differential, Automated (11/07/2013 1:11 PM EDT) [facility] Method Time Signature Neutrophils % 63.9 34.0 [...] Organization Address City/State/ZIP [place] [address] CERNER MILLENNIUM CMV Antibody, IgM (11/07/2013 1:11 PM EDT) athologist Signature CMV IgM Neg Neg CERNER MILLENNIUM Specimen Anatomical Collection Method Collection Time Receive d Time (Source) Location / / Volume Laterality Blood specimen 11/07/2013 1:11 PM 014 7:15 (specimen) EDT AM EDT Resulting Agency Comment Spec In Lab Eriberto Melgar MD IMMUNOLOGY ORDERABLES Performing Organization Address City/[facility]/ZIP Code Phon e Number [address] CERNER MILLENNIUM CMV Antibody, IgG (11/07/2013 1:11 PM EDT) athologist Signature CMV IgG Neg Neg CERNER MILLENNIUM Specimen Anatomical Collection Method Collection Time Receive d Time (Source) Location / / Volume Laterality Blood specimen 11/07/2013 1:11 PM 014 7:15 (specimen) EDT AM EDT Resulting Agency Comment Spec In Lab Eriberto Melgar MD IMMUNOLOGY ORDERABLES Performing Organization Address City/[facility]/ZIP Code Phon e Number [address] CERNER MILLENNIUM Amylase (11/07/2013 [...] City/[facility]/ZIP [place] [address] CERNER MILLENNIUM Lipase (11/07/2013 [...] Code Phon e Number TIFFANI [place] [phone] CERNER MILLENNIUM (ABNORMAL) Comprehensive [...] intervals supplied above were not validated at [facility] [place]. Results from pediatri c patients should be [...] Calcium 9.2 8.5 - 10.5 mg/dL CERNER ALLA NIUM Total Protein 6.3 (L) 6.4 - [...] Organization Address City/State/ZIP Code Phon e Number [address] CERNER MILLENNIUM Magnesium (11/07/2013 [...] Organization Address City/State/ZIP Code Phon e Number [address] CERNER MILLENNIUM Phosphorus (11/07/2013 [...] City/[facility]/ZIP Code Phon e Number [address] CERNER MILLENNIUM Uric acid [...] City/[facility]/ZIP Code Phon e Number [address] CERNER MILLENNIUM Tacrolimus level [...] City/[facility]/ZIP [place] [address] CERNER MILLENNIUM Reticulocyte Count [...] Organization Address City/State/ZIP Code Phon e Number [place] [phone] CERNER MILLENNIUM (ABNORMAL) CBC (with Diff) (11/07/2013 1:11 PM EDT) P athologist Signature WBC 1.6 4.0 - 10.0 CERNER (Critical) x10(3)/mcL MILLENNIUM Comment: This result has been called to TRANSPLAN T by NORIS FAUSTIN on 11.07.13 at 13:27, and has [...] Platelets 226 145 - 370 x10(3)/mcL CERNER ME LLENNIUM RDWSD 44.4 35.0 - 46.0 fL [...] Organization Address City/State/[place] [address] CERNER MILLENNIUM Cholesterol, total (11/07/2013 1:11 PM EDT) athologist Signature Chol, Total 106 <=199 mg/dL CERNER MILLENNIUM Comment: Recommendations of the NCEP Adult Treatm ent Panel for the following risk cutoff thresholds for the [place] popul[place] n: Desirable: <200 mg/dL Borderline High: 200-239 mg/dL High: > or = 240 mg/dL Specimen Anatomical Collection Method Collection Time Receive d Time (Source) Location / / Volume Laterality Blood specimen 11/07/2013 1:11 PM 014 1:14 (specimen) EDT PM EDT Resulting Agency Comment Spec In Lab Eriberto Melgar MD CHEMISTRY ORDERABLES Performing Organization Address City/State/[place] [address] [facility] LAB[address] Drive [facility] documented in this encounter Visit Diagnoses Diagnosis Need for prophylactic immunotherapy Status post pancreas transplantation 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 Hypertension Unspecified essential hypertension documented in this encounter Care Teams Computer Operations Analyst Relationship Specialty Start Date End Date Anna Mullen MD PCP - General 12/03/10 [address] [place] [address] documented as of this encounter
--- OUTSIDE RECORDS SUMMARY | 2022-04-04 00:50 | XMS_ITS | Encounter Summary ---
:1965 Author Organization [facility] [place] [address] Care Team Providers Name Role Phone Anna Mullen MD Primary Care Provider Reason for Visit Reason Comments Pancreas Transplant Follow-up Encounter Details Date Type Department Care Team Description 10/18/2013 Office Visit Solid Organ Eriberto Melgar Need for prophylactic immunotherapy; [place] at [facility] MD Arlyn Status post pancreas transplantation; [facility] [place] [address] [place] [address] [phone] Social History Tobacco Use Types Packs/Day Years [...] PM EST October 18, 2013 Richard Hsu [id number] TRANSPLANT NUTRITION Post-transplant Clinic follow-up note Richard [...] Barreto MD - 10/17/2013 8:46 PM EST [facility] Transplant Nephrology Follow Up Date: 10/09/2013 Patient: Richard Hsu Transplant Date: 08/28/13 [place] organ UNOS diagnosis: Diabetes Mellitus - Type [...] virus only) ??? Hepatitis C Screening (B. [id number]) ??? Pneumovax Q5 years ??? Yearly ophthalmology [...] GI ENDOSCOPY performed by CLAYTON BHAKTA at [facility] ENDOSCOPY ??? Upper gi endoscopy, biopsy 12/31/2011 UPPER GASTROINTESTINAL ENDOSCOPY,WITH BIOPSY SINGLE OR MULTIPLE performed by CLAYTON BHAKTA at [facility] ENDOSCOPY ??? Shoulder surgery ??? Carpal tunnel release ??? Appendectomy ??? Musculoskeletal surgery unlisted 10 years carpel tunnel ??? 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 Transplant allograft pancreas 08/28/2013 @PANCREATIC TRANSPLANT performed by Irja Keller MD at [facility] MAIN OR ??? Transplant, prep donor pancreas 08/28/2013 @PREPARATION CADAVERIC PANCREAS, STANDARD performed by Iraj Keller MD at [facility] MAIN OR Family History Problem Relation [...] Diabetic Supplies, Miscellan. Misc Fax form to [facility] medical for testing supplies 10 times per [id number] each 12 ??? levothyroxine (SYNTHROID) 200 mcg [...] primary infection with EBV. Test Performed by: [facility] [place] [address] Sand Tester: Sarita Beach, Ph.D. 01/21/2012 1615 EBVIGGAB Pos* [...] is can damage both graft and his shoshone-bannock kidneys, especially in the face of dehydration. 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 In addition, the PCR product sequence is confirmed using physical properties (melting cur ve analysis). This test was developed and its performance determined by the [facility] Molecular Pathology Laboratory. It has not been [...] Address City/State/[place] [address] [facility] MILLENNIUM (ABNORMAL) Urinalysis with microscopic (10/18/2013 7:37 AM EST) [facility] Method Time Signature Glucose UA [...] UA Clear Clear CERNER MILLENNIU M Spec [place] UA 1.022 1.002 - 1.030 CERNER MIL [...] Organization Address City/State/ZIP Code Phon e Number [place] [id number] CERNER MILLENNIUM (ABNORMAL) Differential, Automated (10/18/2013 7:28 AM EST) [facility] gist Method Time Signature Neutrophils % [...] Organization Address City/State/[place] [address] CERNER MILLENNIUM CMV PCR, Quantitative (10/18/2013 7:28 AM EST) [facility] Method Time Signature CMV DNA PCR Undetected Undetected CERNER Quant IU/mL MILLENNIUM Comment: Result in log IU/mL is Undetected. The quantification range of this assay i s 137 to 9,100,000 IU/mL (2.14 log to 6.96 log IU/mL) with a limit of detection at 91 IU/mL (1.96 log IU/mL). Testing was performed by the [employer] AmpliPrep/ARNAUD T aqMan CMV Test ([employer] Test Performed by: [facility] [address], [place] [address] Sand Tester: Sarita Beach, Ph. D. Specimen Anatomical Collection Method Collection Time Receive d Time (Source) Location / / Volume Laterality Blood specimen 10/18/2013 7:28 AM 014 2:47 (specimen) EST PM EST Resulting Agency Comment Spec In Lab Eriberto Melgar MD IMMUNOLOGY ORDERABLES Performing Organization Address City/[facility]/ZIP Code Phon e Number [address] CERNER MILLENNIUM Amylase (10/18/2013 7:28 AM EST) athologist Signature Amylase 52 28 - 100 CERNER unit/L MILLENNIUM Specimen Anatomical Collection Method Collection Time Receive d Time (Source) Location / / Volume Laterality Blood specimen 10/18/2013 7:28 AM 014 7:32 (specimen) EST AM EST Resulting Agency Comment Spec In Lab Eriberto Melgar MD CHEMISTRY ORDERABLES Performing Organization Address City/[facility] Phon e Number [address] CERNER MILLENNIUM Lipase (10/18/2013 7:28 AM EST) athologist Signature Lipase 27 0 - 60 CERNER unit/L MILLENNIUM Specimen Anatomical Collection Method Collection Time Receive d Time (Source) Location / / Volume Laterality Blood specimen 10/18/2013 7:28 AM 014 7:32 (specimen) EST AM EST Resulting Agency Comment Spec In Lab Eriberto Melgar MD CHEMISTRY ORDERABLES Performing Organization Address City/[facility] Phon e Number [address] CERNER MILLENNIUM Comprehensive metabolic [...] Address City/State/[place] [address] CERNER MILLENNIUM Magnesium (10/18/2013 [...] Organization Address City/State/ZIP Code Phon e Number [address] CERNER MILLENNIUM Phosphorus (10/18/2013 [...] Organization Address City/State/ZIP Code Phon e Number [address] CERNER MILLENNIUM Uric acid (10/18/2013 7:28 AM EST) P athologist Signature Uric Acid 6.6 3.5 - 8.5 CERNER mg/dL MILLENNIUM Specimen Anatomical Collection Method Collection Time Receive d Time (Source) Location / / Volume Laterality Blood specimen 10/18/2013 7:28 AM 014 7:32 (specimen) EST AM EST Resulting Agency Comment Spec In Lab Eriberto Melgar MD CHEMISTRY ORDERABLES Performing Organization Address City/[facility]/ZIP Code Phon e Number [address] CERNER MILLENNIUM Tacrolimus level [...] ORDERABLES Performing Organization Address [facility] [place] [address] CERNER MILLENNIUM Reticulocyte Count [...] Melgar MD HEMATOLOGY ORDERABLES Performing Organization Address City/[facility] [place] [address] CERNER MILLENNIUM (ABNORMAL) CBC [...] Organization Address City/State/ZIP Code Phon e Number [address] [facility] Cholesterol, total (10/18/2013 7:28 AM EST) athologist Signature Chol, Total 124 <=199 mg/dL [facility] Comment: Recommendations of the NCEP Adult [...] Melgar MD CHEMISTRY ORDERABLES Performing Organization Address City/[facility]/ZIP Code Phon e Number [address] [facility] documented in this encounter Visit Diagnoses Diagnosis Need for prophylactic immunotherapy Status post pancreas transplantation 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 Dehydration documented in this encounter Care Teams Fulfillment Representative Relationship Specialty Start Date End Date Anna Mullen MD PCP - General 12/03/10 [address] [place] [address] documented as of this encounter
--- OUTSIDE RECORDS SUMMARY | 2022-04-04 00:51 | XMS_ITS | Encounter Summary ---
:1965 Author Organization [facility] [place] [address] Care Team Providers Name Role Phone Anna Mullen MD Primary Care Provider Encounter Details Date Type Department Care Team Description 09/06/2013 Hospital Encounter Laboratory [place], Type 1 DM with polyneuropath y; [facility] Bruce Parra [address] [place] CENTER [address] ENDOCRINOLOGY [phone] [facility] [place] [id number] Social History Tobacco Use Types Packs/Day Years [...] 12 09/02/2013 0 05/10/2014 Miscellan. [facility] for testing supplies 10 times per [...] 7.43 (H) 0.27 - 4.20 CERNER mcIU/mL [facility] Specimen Anatomical Collection Method Collection Time Receive d Time (Source) Location / / Volume Laterality Blood specimen 09/06/2013 9:45 AM 014 9:53 (specimen) EST AM EST Resulting Agency Comment Spec In Lab Divya Coles MD CHEMISTRY ORDERABLES Performing Organization Address City/State/ZIP [place] [address] [facility] (ABNORMAL) Hemoglobin A1c (09/06/2013 9:45 AM EST) Analysis Performed At [facility] Time Signature Hemoglobin A1C 7.4 (H) <=5.6 % [facility] Comment: As of 2013 the methodology [...] 1, S67-74 Est Avg Gluc 166 mg/dL [facility] Comment: eAG equivalents for HbA1c percentages: [...] into estimated average glucose values. ??Diabetes Care 2008:31(8):6008-4534. 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
--- OUTSIDE RECORDS SUMMARY | 2022-04-04 00:51 | XMS_ITS | Encounter Summary ---
:1965 Author Organization [facility] Address [facility] [place] [address] Care Team Providers Name Role Phone Anna Mullen MD Primary Care Provider Reason for Visit Reason Comments Pancreas Transplant Follow-up 08/28/2013 Encounter Details Date Type Department Care Team Description 2013 Office Visit Solid Organ Nasrin, Need for prophy lactic immunotherapy; Transplant at [facility] Loc Rey MD Status post pancreas transplantation [facility] [address] [place] [address] [place] [address] [phone] (Wo rk) Social History Tobacco Use Types [...] days. 14 each ??? [facility]. [facility] for testing supplies 10 times per [id number] each 12 ??? levothyroxine (SYNTHROID) 200 mcg [...] performed by CLAYTON BHAKTA at [facility] ENDOSCOPY ??? Upper gi endoscopy, biopsy 12/31/2011 UPPER GASTROINTESTINAL ENDOSCOPY,WITH BIOPSY SINGLE OR MULTIPLE performed by CLAYTON BHAKTA at [facility] ENDOSCOPY ??? Shoulder surgery ??? Carpal tunnel release ??? Appendectomy ??? Musculoskeletal surgery unlisted 10 years carpel tunnel ??? 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 Transplant allograft pancreas 08/28/2013 @PANCREATIC TRANSPLANT performed by Iraj Keller MD at [facility] MAIN OR ??? Transplant, prep donor pancreas 08/28/2013 @PREPARATION CADAVERIC PANCREAS, STANDARD performed by Iraj Keller MD at [facility] MAIN OR FAMILY HISTORY: Family [...] with a history of IDDM who underwent ORDER WORKER two weeks ago. He returns today for [...] 2013 4:15 PM EST 2013 Richard Hsu [id number] TRANSPLANT NUTRITION Post-transplant Clinic follow-up note Richard [...] (ABNORMAL) Differential, Automated (2013 8:03 AM EST) [facility] Method Time Signature Neutrophils % 91.8 (H) [...] Alexandra MD HEMATOLOGY ORDERABLES Performing Organization Address City/[facility] Code Phon e Number [address] CERNER MILLENNIUM Prothrombin Time (2013 8:03 AM EST) P athologist Signature PT 14.1 12.0 - 15.0 CERNER sec MILLENNIUM Comment: [facility] Transfusion Committee Guidelines: I NR less [...] Alexandra MD HEMATOLOGY ORDERABLES Performing Organization Address City/[facility] [place] [address] CERNER MILLENNIUM Amylase (2013 8:03 AM EST) athologist Signature Amylase 45 28 - 100 CERNER unit/L MILLENNIUM Specimen Anatomical Collection Method Collection Time Receive d Time (Source) Location / / Volume Laterality Blood specimen 2013 8:03 AM 014 8:09 (specimen) EST AM EST Resulting Agency Comment Spec In Lab Loc Alexandra MD CHEMISTRY ORDERABLES Performing Organization Address City/[facility] [place] [address] CERNER MILLENNIUM Lipase (2013 8:03 AM EST) athologist Signature Lipase 37 0 - 60 CERNER unit/L MILLENNIUM Specimen Anatomical Collection Method Collection Time Receive d Time (Source) Location / / Volume Laterality Blood specimen 2013 8:03 AM 014 8:09 (specimen) EST AM EST Resulting Agency Comment Spec In Lab Loc Alexandra MD CHEMISTRY ORDERABLES Performing Organization Address City/[facility] Phon e Number [address] CERNER MILLENNIUM (ABNORMAL) Comprehensive [...] Organization Address City/State/[place] [address] CERNER MILLENNIUM Magnesium (2013 8:03 AM EST) P athologist Signature Magnesium 0.70 0.69 - 1.07 CERNER mmol/L MILLENNIUM Specimen Anatomical Collection Method Collection Time Receive d Time (Source) Location / / Volume Laterality Blood specimen 2013 8:03 AM 014 8:09 (specimen) EST AM EST Resulting Agency Comment Spec In Lab Loc Alexandra MD CHEMISTRY ORDERABLES Performing Organization Address City/[facility]/ZIP Code Phon e Number [address] CERNER MILLENNIUM Phosphorus (2013 8:03 AM EST) P athologist Signature Phosphorus 3.6 2.5 - 4.5 CERNER mg/dL MILLENNIUM Specimen Anatomical Collection Method Collection Time Receive d Time (Source) Location / / Volume Laterality Blood specimen 2013 8:03 AM 014 8:09 (specimen) EST AM EST Resulting Agency Comment Spec In Lab Loc Alexandra MD CHEMISTRY ORDERABLES Performing Organization Address City/[facility]/ZIP Code Phon e Number [address] CERNER MILLENNIUM Uric acid (2013 8:03 AM EST) P athologist Signature Uric Acid 5.1 3.5 - 8.5 CERNER mg/dL MILLENNIUM Specimen Anatomical Collection Method Collection Time Receive d Time (Source) Location / / Volume Laterality Blood specimen 2013 8:03 AM 014 8:09 (specimen) EST AM EST Resulting Agency Comment Spec In Lab Loc Alexandra MD CHEMISTRY ORDERABLES Performing Organization Address City/[facility]/ZIP Code Phon e Number [address] CERNER MILLENNIUM Tacrolimus level [...] Alexandra MD CHEMISTRY ORDERABLES Performing Organization Address City/[facility]/ZIP [facility] [address] CERNER MILLENNIUM (ABNORMAL) Reticulocyte Count (2013 8:03 AM EST) [facility] g[facility] Method Time Signature Retic Ct % [...] Alexandra MD HEMATOLOGY ORDERABLES Performing Organization Address [facility] Phon e Number [address] CERNER MILLENNIUM (ABNORMAL) CBC [...] RDWSD 41.8 35.0 - CERNER 46.0 fL [facility] RDWCV 13.0 10.9 - CERNER 14.4 % MILLENNIUM MPV 10.2 9.0 - 12.0 CERNER fL [facility] Specimen Anatomical Collection Method Collection Time Receive d Time (Source) Location / / Volume Laterality Blood specimen 2013 8:03 AM 014 8:09 (specimen) EST AM EST Resulting Agency Comment Spec In Lab Loc Alexandra MD HEMATOLOGY ORDERABLES Performing Organization Address City/[facility]/ZIP [facility] Phon e Number [address] [facility] Cholesterol, total (2013 8:03 AM EST) P athologist Signature Chol, Total 115 <=199 mg/dL [facility] Comment: Recommendations of the NCEP Adult Treatm ent Panel for the following risk cutoff thresholds for the [place] popul[place] n: Desirable: <200 mg/dL Borderline High: 200-239 mg/dL High: > or = 240 mg/dL Specimen Anatomical Collection Method Collection Time Receive d Time (Source) Location / / Volume Laterality Blood specimen 2013 8:03 AM 014 8:09 (specimen) EST AM EST Resulting Agency Comment Spec In Lab Loc Alexandra MD CHEMISTRY ORDERABLES Performing Organization Address [facility] Phon e Number [address] [facility] (ABNORMAL) Urinalysis with microscopic (2013 8:02 AM [...] UA Clear Clear CERNER MILLENNIU M Spec [place] UA 1.014 1.002 - 1.030 CERNER MIL [...] Organization Address City/State/[place] [address] [facility] documented in this encounter Visit Diagnoses Diagnosis Need for prophylactic immunotherapy Status post pancreas transplantation 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 documented in this encounter Care Teams Leaded Glass Installer Relationship Specialty Start Date End Date Anna Mullen MD PCP - General 12/03/10 [address] [place] [address] documented as of this encounter
--- OUTSIDE RECORDS SUMMARY | 2022-04-04 00:51 | XMS_ITS | Encounter Summary ---
:1965 Author Organization [facility] [place] [address] Care Team Providers Name Role Phone Anna Mullen MD Primary Care Provider Encounter Details Date Type Department Care Team Description 09/06/2013 Orders Only Solid Organ Transplant at [facility] [place], [place] [address] [place] [address] [phone] Social History Tobacco Use Types Packs/Day Years Used Date Never Smoker Smokeless Tobacco: Never Used Alcohol Use Standard Drinks/Week Comments No 0 (1 standard drink = 0.6 oz pure alcoho l) history of abuse, stopped 1996 Sex Assigned at Date Recorded Male 05/29/2021 11:28 PM EDT documented as of this encounter Progress Notes Iraj Smiley I - 09/06/2013 1:30 PM EST The patient had the following blood Drug levels: 12.6 Patient has been called and the following medications have been changed: Orders Placed This Encounter Medications ??? PROGRAF 1 mg capsule Sig: Take 1 capsule by mouth 2 times daily. S/P Pancreas transplant V42.83 Dispense: 360 capsule Refill: 3 Instruction were given as to next lab draw and patient verbalized understanding of these instruction. Dr. Cornejo approved this change. documented in this encounter Plan of Treatment Not on filedocumented as of this encounter Visit Diagnoses Not on filedocumented in this encounter Care Teams Pricing Strategist Relationship Specialty Start Date End Date Anna Mullen MD PCP - General 12/03/10 [address] [place] [address] documented as of this encounter
--- OUTSIDE RECORDS SUMMARY | 2022-04-04 00:51 | XMS_ITS | Encounter Summary ---
:1965 Author Organization [facility] Address [address] [place] [address] Care Team Providers Name Role Phone Anna Mullen MD Primary Care Provider Reason for Visit Reason Comments Pancreas Transplant Follow-up 08/28/2013 Encounter Details Date Type Department Care Team Description 09/06/2013 Office Visit Solid Organ Nasrin, Need for prophy lactic immunotherapy; Transplant at [facility] Kj Rey MD Status post pancreas transplantation [facility] [address] [place] [address] [place] [address] [phone] (Wo rk) Social History Tobacco Use Types [...] Diabetic Supplies, Miscellan. Misc Fax form to [facility] medical for testing supplies 10 times per [id number] each 12 ??? PROGRAF 1 mg capsule [...] GI ENDOSCOPY performed by CLAYTON BHAKTA at [facility] ENDOSCOPY ??? Upper gi endoscopy, biopsy 12/31/2011 UPPER GASTROINTESTINAL ENDOSCOPY,WITH BIOPSY SINGLE OR MULTIPLE performed by CLAYTON BHAKTA at [facility] ENDOSCOPY ??? Shoulder surgery ??? Carpal tunnel release ??? Appendectomy ??? Musculoskeletal surgery unlisted 10 years carpel tunnel ??? 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 Transplant allograft pancreas 08/28/2013 @PANCREATIC TRANSPLANT performed by Iraj Keller MD at [facility] MAIN OR ??? Transplant, prep donor pancreas 08/28/2013 @PREPARATION CADAVERIC PANCREAS, STANDARD performed by Iraj Keller MD at [facility] MAIN OR FAMILY HISTORY: Family History [...] Illness: HPI Comments: Mr. Hsu is a 47-yo male who underwent pancreas [...] (ABNORMAL) Differential, Automated (09/06/2013 9:45 AM EST) [employer] Method Time Signature Neutrophils % 91.4 (H) [...] Organization Address City/State/[place] [address] CERNER MILLENNIUM Valproic Acid [...] MD CHEMISTRY ORDERABLES Performing Organization Address City/[facility] [place] [address] CERNER MILLENNIUM Prothrombin Time (09/06/2013 9:45 AM EST) athologist Signature PT 13.5 12.0 - 15.0 CERNER sec MILLENNIUM Comment: [facility] Transfusion Committee Guidelines: I NR less [...] MD HEMATOLOGY ORDERABLES Performing Organization Address City/[facility]/[place] [address] CERNER MILLENNIUM Amylase (09/06/2013 9:45 AM EST) athologist Signature Amylase 53 28 - 100 CERNER unit/L MILLENNIUM Specimen Anatomical Collection Method Collection Time Receive d Time (Source) Location / / Volume Laterality Blood specimen 09/06/2013 9:45 AM 014 9:53 (specimen) EST AM EST Resulting Agency Comment Spec In Lab Kj Alexandra MD CHEMISTRY ORDERABLES Performing Organization Address City/[facility] [place] [address] CERNER MILLENNIUM Lipase (09/06/2013 [...] Organization Address City/State/ZIP Code Phon e Number [address] CERNER MILLENNIUM (ABNORMAL) Comprehensive [...] MD CHEMISTRY ORDERABLES Performing Organization Address City/[facility]/ZIP Code Phon e Number [address] CERNER MILLENNIUM Magnesium (09/06/2013 9:45 AM EST) P athologist Signature Magnesium 0.76 0.69 - 1.07 CERNER mmol/L MILLENNIUM Specimen Anatomical Collection Method Collection Time Receive d Time (Source) Location / / Volume Laterality Blood specimen 09/06/2013 9:45 AM 014 9:53 (specimen) EST AM EST Resulting Agency Comment Spec In Lab Kj Alexandra MD CHEMISTRY ORDERABLES Performing Organization Address City/[facility] Phon e Number [address] CERNER MILLENNIUM Phosphorus (09/06/2013 9:45 AM EST) P athologist Signature Phosphorus 3.1 2.5 - 4.5 CERNER mg/dL [facility] Specimen Anatomical Collection Method Collection Time Receive d Time (Source) Location / / Volume Laterality Blood specimen 09/06/2013 9:45 AM 014 9:53 (specimen) EST AM EST Resulting Agency Comment Spec In Lab Kj Alexandra MD CHEMISTRY ORDERABLES Performing Organization Address City/[facility]/ZIP Code Phon e Number [address] [facility] MILLEN[facility]UM Uric acid (09/06/2013 9:45 AM EST) athologist Signature Uric Acid 4.8 3.5 - 8.5 CERNER mg/dL [facility] Specimen Anatomical Collection Method Collection Time Receive d Time (Source) Location / / Volume Laterality Blood specimen 09/06/2013 9:45 AM 014 9:53 (specimen) EST AM EST Resulting Agency Comment Spec In Lab Kj Alexandra MD CHEMISTRY ORDERABLES Performing Organization Address City/[facility]/ZIP Code Phon e Number [address] [facility] Tacrolimus level (09/06/2013 9:45 AM EST) athologist Signature Tacrolimus Lvl 12.6 ng/mL [facility] Comment: Trough therapeutic: 5-15 ng/mL Specimen Anatomical Collection Method Collection Time Receive d Time (Source) Location / / Volume Laterality Blood specimen 09/06/2013 9:45 AM 014 (specimen) EST 12:05 PM EST Resulting Agency Comment Spec In Lab Kj Aelxandra MD CHEMISTRY ORDERABLES Performing Organization Address City/[facility]/ZIP [facility] Phon e Number [address] CERMADISON HEALTHENNIUM (ABNORMAL) Reticulocyte Count (09/06/2013 9:45 AM EST) [facility] gist Method Time Signature Retic Ct [...] Organization Address City/State/ZIP Code Phon e Number [place] [phone] CERNER MILLENNIUM (ABNORMAL) CBC [...] MD HEMATOLOGY ORDERABLES Performing Organization Address City/[facility]/ZIP Code Phon e Number [address] CERNER MILLENNIUM Cholesterol, total (09/06/2013 9:45 AM EST) P athologist Signature Chol, Total 109 <=199 mg/dL CERNER MILLENNIUM Comment: Recommendations of the NCEP Adult Treatm ent Panel for the following risk cutoff thresholds for the [place] populatio n: Desirable: <200 mg/dL Borderline High: 200-239 mg/dL High: > or = 240 mg/dL Specimen Anatomical Collection Method Collection Time Receive d Time (Source) Location / / Volume Laterality Blood specimen 09/06/2013 9:45 AM 014 9:53 (specimen) EST AM EST Resulting Agency Comment Spec In Lab Kj Alexandra MD CHEMISTRY ORDERABLES Performing Organization Address City/[facility]/ZIP [facility] [address] CERNER MILLENNIUM Urinalysis with [...] UA Clear Clear CERNER MILLENNIU M Spec Mag[place] UA 1.010 1.002 - 1.030 [facility] MIL LEN[facility]UM Color UA Yellow Yellow [...] Organization Address City/State/ZIP Code Phon e Number [place] [phone] [facility] documented in this encounter Visit Diagnoses Diagnosis Need for prophylactic immunotherapy Status post pancreas transplantation 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 documented in this encounter Care Teams Interstate Bus Driver Relationship Specialty Start Date End Date Anna Mullen MD PCP - General 12/03/10 [address] [place] [address] documented as of this encounter
--- OUTSIDE RECORDS SUMMARY | 2022-04-04 00:51 | XMS_ITS | Encounter Summary ---
:1965 Author Organization [facility] [place] [address] Care Team Providers Name Role Phone Anna Mullen MD Primary Care Provider Encounter Details Date Type Department Care Team Description 2013 Telephone Solid Organ [place] [address] Social History Tobacco Use Types Packs/Day [...] on filedocumented in this encounter Care Teams Needle Polisher Relationship Specialty Start Date End Date Anna Mullen MD PCP - General 12/03/10 [address] [place] [address] documented as of this encounter
--- OUTSIDE RECORDS SUMMARY | 2022-04-04 00:51 | XMS_ITS | Encounter Summary ---
:1965 Author Organization [place] [address] Care Team Providers Name Role Phone Anna Mullen MD Primary Care Provider Encounter Details Date Type Department Care Team Description 2013 External Results [place] [address] Social History Tobacco Use Types Packs/Day [...] on filedocumented in this encounter Care Teams Duplex Trimmer Relationship Specialty Start Date End Date Anna Mullen MD PCP - General 12/03/10 [address] [place] [address] documented as of this encounter
--- OUTSIDE RECORDS SUMMARY | 2022-04-04 00:51 | XMS_ITS | Encounter Summary ---
:1965 Author Organization [facility] [place] [address] Care Team Providers Name Role Phone Anna Mullen MD Primary Care Provider Encounter Details Date Type Department Care Team Description 09/03/2013 Telephone Solid Organ Transpla nt at [facility] [place], [place] [address] Social History Tobacco Use Types Packs/Day [...] RN - 09/03/2013 4:47 PM EST 09/03/13 marketing project coordinator note: Called & left message with [...] on filedocumented in this encounter Care Teams Sales And Service Agent Relationship Specialty Start Date End Date Anna Mullen MD PCP - General 12/03/10 [address] [place] [address] documented as of this encounter
--- OUTSIDE RECORDS SUMMARY | 2022-04-04 00:51 | XMS_ITS | Encounter Summary ---
:1965 Author Organization [facility] Address [facility] [address] [place] [address] Care Team Providers Name Role Phone Anna Mullen MD Primary Care Provider Reason for Visit Reason Comments Pancreas Transplant Follow-up 08/28/2013 Encounter Details Date Type Department Care Team Description 09/13/2013 Office Visit Solid Organ Nasrin, Need for prophy lactic immunotherapy; Transplant at [facility] Loc Rey MD Status post pancreas transplantation [facility] [address] [place] [address] [place] [address] [phone] (Wo rk) Social History Tobacco Use Types [...] PM EST September 13, 2013 Richard Hsu [id number] TRANSPLANT NUTRITION Post-transplant Clinic follow-up note Richard [...] powder added but they don't have a air force senior officer therefore he disliked the grainy texture; he would prefer it if it was more smooth. I encouraged them to get a air force senior officer to mix more thoroughly. Weight: 95kg (209.4#) [...] continue the shakes, however he will change control manager to Ensure since his can get them [...] Diabetic Supplies, Miscellan. Misc Fax form to [facility] for testing supplies 10 times per [id number] each 12 ??? levothyroxine (SYNTHROID) 200 mcg [...] ENDOSCOPY performed by CLAYTON BHAKTA at [facility] ENDOSCOPY ??? Upper gi endoscopy, biopsy 12/31/2011 UPPER GASTROINTESTINAL ENDOSCOPY,WITH BIOPSY SINGLE OR MULTIPLE performed by CLAYTON BHAKTA at [facility] ENDOSCOPY ??? Shoulder surgery ??? Carpal tunnel release ??? Appendectomy ??? Musculoskeletal surgery unlisted 10 years carpel tunnel ??? 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 Transplant allograft pancreas 08/28/2013 @PANCREATIC TRANSPLANT performed by Iraj Keller MD at [facility] MAIN OR ??? Transplant, prep donor pancreas 08/28/2013 @PREPARATION CADAVERIC PANCREAS, STANDARD performed by Iraj Keller MD at [facility] MAIN OR FAMILY HISTORY: Family [...] with a history of IDDM who underwent OUTSIDE CONTRACTOR SALES three weeks ago. He returns today for [...] 10 (L) 20 - 40 CERNER mg/dL [facility] Comment: Prealbumin levels are generally lower in the pediatric population; adult concentrations are usually attained near puberty. Specimen Anatomical Collection Method Collection Time Receive d Time (Source) Location / / Volume Laterality Blood specimen 09/16/2013 10:42 4 (specimen) AM EST 10:46 AM EST Resulting Agency Comment Spec In Lab Loc Alexandra MD CHEMISTRY ORDERABLES Performing Organization Address City/State/ZIP Code Phon e Number [place] [phone] CERNER MILLENNIUM CT abdomen [...] Urinalysis with microscopic (09/13/2013 10:24 AM EST) [facility] Method Time Signature Glucose [...] UA Clear Clear CERNER MILLENNIU M Spec [place] UA 1.021 1.002 - 1.030 CERNER MIL [...] Organization Address City/State/ZIP Code Phon e Number [place] [phone] CERNER MILLENNIUM (ABNORMAL) Differential, Automated (09/13/2013 10:20 AM EST) [facility] Method Time Signature Neutrophils % 88.3 (H) [...] Alexandra MD HEMATOLOGY ORDERABLES Performing Organization Address City/[facility]/ZIP [facility] Phon e Number [address] [facility] MILLENNIUM Amylase (09/13/2013 10:20 AM EST) P athologist Signature Amylase 35 28 - 100 CERNER unit/L MILLENNIUM Specimen Anatomical Collection Method Collection Time Receive d Time (Source) Location / / Volume Laterality Blood specimen 09/13/2013 10:20 4 (specimen) AM EST 10:25 AM EST Resulting Agency Comment Spec In Lab Loc Alexandra MD CHEMISTRY ORDERABLES Performing Organization Address City/[facility]/ZIP [facility] Phon e Number [address] CERNER MILLENNIUM Lipase (09/13/2013 [...] Address City/State/ZIP Code [place] [address] CERNER MILLENNIUM (ABNORMAL) Comprehensive [...] intervals supplied above were not validated at [facility]. Results from pediatri c [...] Alexandra MD CHEMISTRY ORDERABLES Performing Organization Address City/[facility]/ZIP Code Phon e Number [address] CERNER MILLENNIUM (ABNORMAL) Magnesium [...] MD CHEMISTRY ORDERABLES Performing Organization Address City/State/ZIP [facility] [place] [address] CERNER MILLENNIUM Phosphorus (09/13/2013 10:20 AM EST) P athologist Signature Phosphorus 2.7 2.5 - 4.5 CERNER mg/dL MILLENNIUM Specimen Anatomical Collection Method Collection Time Receive d Time (Source) Location / / Volume Laterality Blood specimen 09/13/2013 10:20 4 (specimen) AM EST 10:25 AM EST Resulting Agency Comment Spec In Lab Loc Alexandra MD CHEMISTRY ORDERABLES Performing Organization Address City/[facility]/ZIP Code Phon e Number [address] CERNER MILLENNIUM Uric acid (09/13/2013 10:20 AM EST) P athologist Signature Uric Acid 4.5 3.5 - 8.5 CERNER mg/dL MILLENNIUM Specimen Anatomical Collection Method Collection Time Receive d Time (Source) Location / / Volume Laterality Blood specimen 09/13/2013 10:20 4 (specimen) AM EST 10:25 AM EST Resulting Agency Comment Spec In Lab Loc Alexandra MD CHEMISTRY ORDERABLES Performing Organization Address City/[facility]/ZIP Code Phon e Number [address] [facility] Tacrolimus level (09/13/2013 10:20 AM EST) P athologist Signature Tacrolimus Lvl 8.2 ng/mL CERNER MILLENNIUM Comment: Trough therapeutic: 5-15 ng/mL Specimen Anatomical Collection Method Collection Time Receive d Time (Source) Location / / Volume Laterality Blood specimen 09/13/2013 10:20 4 (specimen) AM EST 12:12 PM EST Resulting Agency Comment Spec In Lab Loc Alexandra MD CHEMISTRY ORDERABLES Performing Organization Address City/[facility]/ZIP [facility] Phon e Number [address] [facility] MILLENNIUM (ABNORMAL) Reticulocyte Count (09/13/2013 10:20 AM [...] Alexandra MD HEMATOLOGY ORDERABLES Performing Organization Address City/[facility]/[place] [address] CERNER MILLENNIUM (ABNORMAL) CBC [...] Alexandra MD HEMATOLOGY ORDERABLES Performing Organization Address City/[facility]/[place] [address] CERNER MILLENNIUM Cholesterol, total [...] Address City/State/[place] [address] [facility]ITALGUILLERMINA AutoGnomicsWATAU[facility] documented in this encounter Visit Diagnoses Diagnosis Need for prophylactic immunotherapy Status post pancreas transplantation 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 Status post pancreas transplantation 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 documented in this encounter Care Teams Gas Cutting Machine Operator Relationship Specialty Start Date End Date Anna Mullen MD PCP - General 12/03/10 [address] [place] [address] documented as of this encounter
--- OUTSIDE RECORDS SUMMARY | 2022-04-04 00:51 | XMS_ITS | Encounter Summary ---
:1965 Author Organization [facility] [place] [address] Care Team Providers Name Role Phone Anna Mullen MD Primary Care Provider Encounter Details Date Type Department Care Team Description 09/05/2013 Telephone Solid Organ Transplant at Iraj Chappell I, [place] [address] [place] [address] [phone] Social History Tobacco Use Types Packs/Day Years [...] on filedocumented in this encounter Care Teams End Finder Forming Department Relationship Specialty Start Date End Date Anna Mullen MD PCP - General 12/03/10 [address] [place] [address] documented as of this encounter
--- OUTSIDE RECORDS SUMMARY | 2022-04-04 00:51 | XMS_ITS | Encounter Summary ---
:1965 Author Organization [facility] [place] [address] Care Team Providers Name Role Phone Anna Mullen MD Primary Care Provider Encounter Details Date Type Department Care Team Description 09/04/2013 Telephone Solid Organ Transpla nt at [facility] [place]oda [place], [place] [address] Social History Tobacco Use Types Packs/Day [...] 6:44 PM EST 09/04/13 @ 6:45 P.M. health education coordinator note: Called & left message with [...] on filedocumented in this encounter Care Teams Millinery Salesperson Relationship Specialty Start Date End Date Anna Mullen MD PCP - General 12/03/10 [address] [place] [address] documented as of this encounter
--- OUTSIDE RECORDS SUMMARY | 2022-04-04 00:51 | XMS_ITS | Encounter Summary ---
:1965 Author Organization [facility] [place] [address] Care Team Providers Name Role Phone Anna Mullen MD Primary Care Provider Reason for Visit Reason Onset Date Comments Medication Refill 09/06/2013 Encounter Details Date Type Department Care Team Description 09/06/2013 Refill Solid Organ Transplant at Iraj Ch[place] I, [place] [address] [place] [address] [phone] Social History Tobacco Use Types Packs/Day Years [...] on filedocumented in this encounter Care Teams Inspector Canvas Products Relationship Specialty Start Date End Date Anna Mullen MD PCP - General 12/03/10 [address] [place], [place] [address] documented as of this encounter
--- OUTSIDE RECORDS SUMMARY | 2022-04-04 00:52 | XMS_ITS | Encounter Summary ---
:1965 Author Organization [facility] [place] [address] Care Team Providers Name Role Phone Anna Mullen MD Primary Care Provider Encounter Details Date Type Department Care Team Description 08/28/2013 Anesthesia Event Main Operating Room Annika Price MD [facility] [place] [address] [facility] Haleigh Hernandez MD [facility] [place] [address] [place] [address] Anesthesia Record Procedure Summary Procedure Name [...] RN Em mons, Bruce W, catheter; 08/31/13; TESTING DIRECTOR 1208 documented in this encounter Social History [...] GI ENDOSCOPY performed by CLAYTON BHAKTA at [facility] ENDOSCOPY ??? Upper gi endoscopy, biopsy 12/31/2011 UPPER GASTROINTESTINAL ENDOSCOPY,WITH BIOPSY SINGLE OR MULTIPLE performed by CLAYTON BHAKTA at [facility] ENDOSCOPY ??? Shoulder surgery ??? [...] cardiology (they found no evidence of aprior LA and no occlusive coronary disease amenable to [...] hand squeezes to accelerate heart rate. Peak RS=781 (67% MPHR despite holding carvedilol), peak BP [...] products. Plan discussed with resident and attending. [facility]. Assessment: documented in this encounter Plan of [...] 0.9% 101 mL infusion 30 mg, Intravenous, RIPRAP WORKER TO O.R., 1 dose, On 08/28/13 at [...] chloride 0.9% 108.5 mL 425 mg, Intravenous, RIPRAP WORKER TO O.R., 1 dose, On 08/28/13 at [...] g (Alternative Adult) infusion 4.5 g, Intravenous, RIPRAP WORKER TO O.R., 1 dose, On 08/28/13 at [...] Intra-op documented in this encounter Care Teams Commutator Tester Relationship Specialty Start Date End Date Anna Mullen MD PCP - General 12/03/10 [address] [place] [address] documented as of this encounter
--- OUTSIDE RECORDS SUMMARY | 2022-04-04 00:52 | XMS_ITS | Encounter Summary ---
:1965 Author Organization [facility] [place] [address] Care Team Providers Name Role Phone Anna Dent MD Primary Care Provider Encounter Details Date Type Department Care Team Description 08/28/2013 Surgery Main Operating Room Michael Keller MD @PANCREATIC TRANSPLANT [facility] ([facility] 37.8) [facility] TRANSPLANT [address] [id number] [phone] Social History Tobacco Use Types Packs/Day Years [...] TRANSPLANT SURGERY CLINIC DURING WORKING HOURS AT [phone], OR CALL AFTER CLINIC HOURS, WEEKENDS AND HOLIDAYS: ASK FOR THE SURGERY RESIDENT JAVA SOFTWARE DEVELOPER IF ANY OF THE ABOVE OCCUR. Activity [...] 1:45 PM Geoffrey Martinez MD [facility] [address] [place] [address] CLIN You will need lab work before [...] Dx V42.83 Diabetic Supplies, Fax form to [facility] 100 each 12 09/02/2013 0 05/10/2014 Miscellan. [facility] medical for testing supplies 10 times per [...] mouth 0 10/18/2013 tablet 2 times daily. Richlands-3 Fatty Take 5,000 mg by 0 01/08/201109/06 [...] home with VNA. Discharged summary faxed to [facility] [place]. Message left with intake nurse. PICC line [...] TRANSPLANT NUTRITION Post-Transplant Discharge Diet Instruction This marketing underwriter met with Richard Hsu a 47 year [...] URINE, TEST (ACETONE, URINE, TEST) STRP by [facility].(Non-Drug; Combo Route) route. AMLODIPINE (NORVASC) 2.5 MG TABLET Take by mouth daily. ASPIRIN 325 MG TABLET Take by mouth daily. CALCIUM CARBONATE (CALCIUM 600 ORAL) Take 1,200 mg by mouth daily. CARVEDILOL (COREG) 3.125 MG TABLET Take by mouth 2 times daily (with meals). CITALOPRAM (CELEXA) 20 MG TABLET Take 40 mg by mouth daily. DIABETIC SUPPLIES, [place]AN. [facility] Fax form to [facility] medical for testing supplies 10 [...] Barreto MD - 09/01/2013 7:53 AM EST [facility] NEPHROLOGY INPATIENT FOLLOW UP PATIENT: Richard Hsu : 1965 ROOM: [address] [place] [address]- ID: 47 y.o. male admitted for pancreas [...] w/Dr Talia Camarena MD Nephrology Fellow Pager# [phone] I examined the patient, reviewed all of [...] Pain controlled with PO medications and minimal GIS ANALYST Subjective: no complaints this AM, denies n/v/cp/sob. [...] insulin. HDS and Hb stable. Neuro: DC GIS ANALYST, continue PO dilaudid Cards: stable Pulm: IS, [...] close nmonitoring LONNIE YEUNG MD PGY1, pager [phone] Transplant Surgery I have seen and evaluated [...] home in AM with PICC line for mcfp hydration Leilani Keller MD - 08/31/2013 8:29 [...] flow sheet abdomen soft, non-distended wound c/d/i GERLAD serosangenous Labs as above A/P Doing well [...] Melgar MD - 08/30/2013 2:15 PM EST [facility] NEPHROLOGY INPATIENT FOLLOW UP PATIENT: Richard Hsu : 1965 ROOM: [place] [address][id number] ID: [id number] y.o. male admitted for pancreas transplantation. Subjective: - Feels better - Tremors did not recur - NG tube taken out today - Has not passed gasses yet - Pain controlled w/GIS ANALYST MEDS: ??? [COMPLETED] ondansetron 4 mg Intravenous [...] w/Dr Talia Camarena MD Nephrology Fellow Pager# [phone] I examined the patient, reviewed all of [...] 1:55 PM EST Care Management/ CRC pager# [phone]/ Progress note and Discharge planning S: Getting a referral in to [facility] and [facility] would be terrific. I am a nurse, but I am also the patient's ! ( Tiffani speaking) O: Met with patient and patient's in conjunction with Leilani Smiley RN Transplant Coordinatorthis afternoon. Other family members present. Referral to [facility] as requested. Information faxed via discharge central. Referral to [facility] as requested. Discussion with MIGUELITO Ricardo. Information faxed via discharge central. Care Management note for MD Discharge Summary (with VNA and Infusion Vendor information) completed and pended by marketing underwriter. Patient is POD# 2 pancreas transplant. Blood sugar range 111-145 since midnight. NGT D/C this morning. GERALD drain x1 to bulb suction (output of 300ml/24hr). Solumedrol 125mg IV today. Patient OOB with assistance. Patient to have PICC line placed this afternoon. [facility] A: Patient progressing post-op. Supportive and family. P: I will continue in CRC role, following patient's in-hospital course, offering support to patient/family, coordinating discharge planning effort. At time of patient's discharge, city mail carrier to call report to VNA and MD [...] insulin. HDS and Hb stable. Neuro: dil complex care nurse Cards: stable Pulm: IS, oob GI: sips [...] pain level is between 4-5. Pt using GIS ANALYST approprietly. Pt at the bedside. VS stable [...] discharge medications have been ordered at the [facility] outpatient pharmacy and a family member will [...] Had some pain, but not using max complex care nurse Hb stable BP 139/79 Pulse 85 Temp [...] without insulin. HDS and Hb stable. Neuro: complex care nurse Cards: stable Pulm: IS GI: sips and [...] 4:19 PM EST Care Management/ CRC Pager# [phone]/ Initial assessment O: Patient sitting in recliner chair, napping. Transitional Care Liaison did not awaken patient. Notes reviewed. Patient lives with his Tiffani in [facility]. Patient has [facility] and currently has CBA assecondary (but as of 08/31/13, CBA plan terminates). Call to Judi Manzano of Transplant Clinic to confirm. No Advance Directives on file here at [facility]. Patient is POD#1 pancreas transplant. At this [...] po/IV qday. Tylenol po q4hr prn. Hydromorphone GIS ANALYST. Zofran IV q8hr prn (dose today at [...] C/o 05/10 main. Pt encouraged to push GIS ANALYST button for any pain. CVP line flushed [...] [COMPLETED] alemtuzumab (CAMPATH) infusion 30 mg Intravenous Jig Mill Operator to OR ### ??? [COMPLETED] piperacillin-tazobactam 4.5 g Intravenous Jig Mill Operator to OR ### ??? [COMPLETED] ganciclovir 425 mg Intravenous Jig Mill Operator to OR ### ??? citalopram 40 mg [...] 4.5 g Intravenous Q6H ### ??? [DISCONTINUED] GIS ANALYST du ### ??? [COMPLETED] methylPREDNISolone 375 mg Intravenous Jig Mill Operator to OR ### ??? [COMPLETED] mycophenolate 1,000 mg Oral Jig Mill Operator to OR ### ??? [COMPLETED] diphenhydrAMINE 50 mg Intravenous Jig Mill Operator to OR ### ??? [COMPLETED] neomycin 1,000 mg Oral Q2H ### ??? [COMPLETED] acetaminophen 650 mg Oral Jig Mill Operator to OR ### ??? [COMPLETED] fluconazole 200 mg Intravenous Once ### ??? levothyroxine 200 mcg Oral QAM ### ??? [DISCONTINUED] sodium chloride 0.9 % 5 mL Intravenous Q12H ### ??? [DISCONTINUED] alemtuzumab (CAMPATH) infusion 30 mg Intravenous Jig Mill Operator to OR ### ??? [DISCONTINUED] piperacillin-tazobactam 4.5 g Intravenous Once ### ??? [DISCONTINUED] ganciclovir 485 mg Intravenous Jig Mill Operator to OR ### ??? [DISCONTINUED] insulin aspart 3-12 Units Subcutaneous Q4H L[place]ONT ### ??? HYDROmorphone (DILAUDID) 1 mg/mL GIS ANALYST 30 mL Intravenous GIS ANALYST Only ### ??? GIS ANALYST du Intravenous Continuous ### ??? lactated ringers [...] marked. GERALD drainage sanguineous. Pain 8/10, using GIS ANALYST appropriately. Givenice chips. Will continue to monitor. [...] manage pain. 1120- Chest Xray done. 1205- GIS ANALYST teaching performed with return demonstration showing understanding. [...] GI ENDOSCOPY performed by CLAYTON BHAKTA at [facility] ENDOSCOPY ??? Upper gi endoscopy, biopsy 12/31/2011 UPPER GASTROINTESTINAL ENDOSCOPY,WITH BIOPSY SINGLE OR MULTIPLE performed by CLAYTON BHAKTA at [facility] ENDOSCOPY ??? Shoulder surgery ??? Carpal [...] mg by mouth 2 times daily. ??? 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 -Admit to [facility], floor status, transplant pod -EKG, CXR now for pre-operative workup -Holding home medications except for synthroid -Continue home insulin pump at current rate, POC glc checks q4h -Neomycin 1,000 mg q2h x2 doses -Abx solution engineer to OR: Zosyn 4.5 gram, ganciclovir 487.5 mg, fluconazole 200 mg IV -Antirejection medications solution engineer to OR: alemtuzumab 30 mg, methylprenisolone 375 mg, cellcept 1,000 mg po -Fluids: Hep lock -Diet: NPO -Labs: CBC, BMP, T&S, mag, phos, coags, HIV screen, hep C antibody, varicella antibody -Floor status, full code Conor Herbert M.D. PGY-2 Pager [phone] I have seen and examined the patient, [...] 09/03/2013 9:07 AM ESTAssociated Order(s): SCAN DOC: COMMERCIAL LINES INSURANCE AGENT Anibal Lucero RN - 08/30/2013 3:16 PM [...] to the planned procedure. Hand Hygiene: The personal lines advisor did perform hand hygiene prior to line insertion. Catheter type: PICC Lot number: [id number] Procedure Technique: Skin was prepped with chlorhexidine. [...] Estimate Decreased RBC Morphology Abnormal Ovalocytes 1-5 Cat [place] Cells 1-5 Toxic Granulation Present POCT GLUCOSE [...] mg by mouth 2 times daily. ??? Richlands-3 Fatty Acids-Vitamin E (FISH OIL) 1,000 mg [...] 180 capsule 6 ??? Diabetic Supplies, Miscellan. [facility] Fax form to [facility] medical for testing supplies 10 times per cry274 each 12 ??? PROGRAF 1 mg capsule [...] Please check any medication changes with the [facility] transplant clinic. PCP: ANNA DENT MD Scheduled [...] nurse practitioner, clinical nurse specialist or physician's kindergarten instructional assistant who is working directly with them, [...] changes will need to be obtained from [facility] Transplant Clinic [phone] or from this patient's PCP: ANNA DENT MD [address] [place] [address] All A agencies which cover the area of patient's residence have been reviewed, either verbally or in writing, and patient/family have chosen the indicated home health care agency for home services. [facility] PHONE: [phone] FAX: [phone] RN visits to be within 24hr of [...] Response Notes Agency name and contact information [facility] Patient location post discharge home What services are requested Registered Nurse Start date 09/03/2013 Responsible MD post discharge contact info [facility] Dr. Leilani Keller and PCP Anna Dent Referral for Home Hydration Order Comments: Home Infusion Company Orders Home infusion company: [employer] [place], [place] or Patient name: Richard PerezpDOB: 1965 [...] Question Response Notes Vendor / contact information [facility] Patient location post discharge home Service requested PICC personal lines advisor and home IV hydration Start date 09/03/2013 Responsible MD post discharge contact info [facility] Dr. Leilani Keller and PCP Anna Dent [...] TRANSPLANT SURGERY CLINIC DURING WORKING HOURS AT [phone], OR CALL AFTER CLINIC HOURS, WEEKENDS AND HOLIDAYS: ASK FOR THE SURGERY RESIDENT JAVA SOFTWARE DEVELOPER IF ANY OF THE ABOVE OCCUR. Activity [...] drawn. General Instructions None Provider Contact Information: [phone] Signed: LONNIE YEUNG MD 09/02/2013 I examined [...] Obstetric) Medicating with oral medications and using GIS ANALYST for BTP; states tolerable level of comfort; [...] rating 8/10 pain. Pt reminded to use GIS ANALYST button. Pt encouraged to notify RN of any change or increase in pain. Will continue to monitor. Plan of Care - Lilli Craig RN - 08/30/2013 11:35 AM EST Problem: Knowledge Deficit (Adult, Pediatric, , NICU, Obstetric) Goal: Knowledge Deficit: Knowledgeable about Subject/Topic Outcome: Outcome achieved Date Met: 08/30/13 Peripherally Inserted Central Catheter (PICC) Teaching Sheet Peripherally inserted central catheters (rlgu-ma-iqzd) (PICC) are used when you need IV [...] midline catheter? PICC lines are used for long term care social worker treatments. PICC lines may be used for [...] can be set up via the nurse Ladies' Hat Trimmer to help you. What are possible complications [...] Efficacy, Safety, Use, and Administration of [employer], [employer] 2005 [facility] Plan of Care - Yolanda Dominguez [...] pain scale. Pt encouraged to use dilaudid GIS ANALYST. Thereis relief in pain with using the GIS ANALYST. Pt states a comfortable and tolerable pain level is about a 4 on the numeric pain scale. Pt uses the numbers scale appropriately to rate pain. Pt verbalizes an understanding of factors that aggravate and relieve pain. Other methods utilized to reduce pain such as repositioning and distraction. Consult Note - Eriberto Melgar MD - 08/29/2013 8:36 AM EST [facility] HYPERTENSION/ NEPHROLOGY INPATIENT CONSULTATION PATIENT: Richard Hsu [...] piperacillin-tazobactam 4.5 g Intravenous Q6H ??? [DISCONTINUED] GIS ANALYST du ??? levothyroxine 200 mcg Oral QAM [...] GI ENDOSCOPY performed by CLAYTON BHAKTA at [facility] ENDOSCOPY ??? Upper gi endoscopy, biopsy 12/31/2011 UPPER GASTROINTESTINAL ENDOSCOPY,WITH BIOPSY SINGLE OR MULTIPLE performed by CLAYTON BHAKTA at [facility] ENDOSCOPY ??? Shoulder surgery ??? 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 Dilaudid GIS ANALYST in use. Pt educated on the importance to manage own pain with the use of GIS ANALYST. Pt uses the numbers scale appropriately to [...] breakdown at this time. OR Attestation - eLilani Keller MD - 08/28/2013 11:34 AM EST Attestation: Case Date: 08/28/2013 I was present and I participated during the entire procedure (does not need to include opening and closing). LEILANI KELLER MD 08/28/2013 Op Note - Leilani Keller MD - 08/28/2013 11:33 AM EST [facility] Operative Note Patient Name: Richard Hsu : [id number] MR#: [id number] Case Date: 08/28/2013 Surgeon: Surgeon(s) and Role: [...] gland. After securing hemostasis, we constructed a ttip-if-eshi double layer handsewnanastomosis between the donor duodenum [...] with the hemostasis, we placed a 19 Urdu Cachorro drain in the patient's right lower [...] Operative Note Patient Name: Richard Hsu : [id number] MR#: [id number] Case Date: 08/28/2013 Surgeon: Surgeon(s) and Role: [...] procedure are i n the results section. COMMERCIAL LINES INSURANCE AGENT SCAN 09/03/2013 9:07 Resu lts for this [...] section. TYPE AND SCREEN STAT 08/28/2013 1:28 ([facility]) AM EST XR CHEST PA AND Routine [...] documented in this encounter Results SCAN DOC: COMMERCIAL LINES INSURANCE AGENT (09/03/2013 9:07 AM EST) Narrative 09/03/2013 9:24 [...] Organization Address City/State/ZIP Code Phon e Number [place] [phone] CERNER MILLENNIUM (ABNORMAL) Differential, [...] CERNER MILLENNIUM Ovalocytes 1-5 /HPF CERNER MILLENNIUM Cat Spring Cells 1-5 /HPF CERNER MILLENNIUM Toxic Present CERNER Granulation MILLENNIUM Specimen Anatomical Collection Method Collection Time Receive d Time (Source) Location / / Volume Laterality Blood specimen 09/02/2013 3:25 AM 014 3:43 (specimen) EST AM EST Resulting Agency Comment Spec In Lab Leilani Keller MD HEMATOLOGY ORDERABLES Performing Organization Address City/State/[place] [address] CERNER MILLENNIUM (ABNORMAL) CBC [...] 121 (L) 145 - 370 x10(3)/mcL CERNER [place] LLENNIUM RDWSD 39.3 35.0 - 46.0 fL [...] Organization Address City/State/[place] [address] CERNER MILLENNIUM (ABNORMAL) Basic [...] intervals supplied above were not validated at [facility]. Results from pediatri c patients should be [...] Keller MD CHEMISTRY ORDERABLES Performing Organization Address City/[facility]/ZIP Code Phon e Number [address] CERNER MILLENNIUM Phosphorus (09/02/2013 3:25 AM EST) P athologist Signature Phosphorus 3.7 2.5 - 4.5 CERNER mg/dL MILLENNIUM Specimen Anatomical Collection Method Collection Time Receive d Time (Source) Location / / Volume Laterality Blood specimen 09/02/2013 3:25 AM 014 3:43 (specimen) EST AM EST Resulting Agency Comment Spec In Lab Leilani Keller MD CHEMISTRY ORDERABLES Performing Organization Address City/[facility] Code Phon e Number [address] CERNER MILLENNIUM (ABNORMAL) Lipase (09/02/2013 3:25 AM EST) P athologist Signature Lipase 64 (H) 0 - 60 CERNER unit/L MILLENNIUM Specimen Anatomical Collection Method Collection Time Receive d Time (Source) Location / / Volume Laterality Blood specimen 09/02/2013 3:25 AM 014 3:43 (specimen) EST AM EST Resulting Agency Comment Spec In Lab Leilani Keller MD CHEMISTRY ORDERABLES Performing Organization Address City/[facility] Phon e Number [address] CERNER MILLENNIUM Amylase (09/02/2013 3:25 AM EST) P athologist Signature Amylase 70 28 - 100 CERNER unit/L MILLENNIUM Specimen Anatomical Collection Method Collection Time Receive d Time (Source) Location / / Volume Laterality Blood specimen 09/02/2013 3:25 AM 014 3:43 (specimen) EST AM EST Resulting Agency Comment Spec In Lab Leilani Keller MD CHEMISTRY ORDERABLES Performing Organization Address City/[facility]/ZIP Code Phon e Number [address] CERNER MILLENNIUM (ABNORMAL) Magnesium (09/02/2013 3:25 AM EST) P athologist Signature Magnesium 0.68 (L) 0.69 - 1.07 CERNER mmol/L MILLENNIUM Specimen Anatomical Collection Method Collection Time Receive d Time (Source) Location / / Volume Laterality Blood specimen 09/02/2013 3:25 AM 014 3:43 (specimen) EST AM EST Resulting Agency Comment Spec In Lab Leilani Keller MD CHEMISTRY ORDERABLES Performing Organization Address City/[facility]/ZIP Code Phon e Number [address] CERNER MILLENNIUM POCT Glucose (09/02/2013 3:24 AM EST) athologist Signature POC Glucose 87 60 - 199 CERNER mg/dL [facility] Comment: Supplemental ranges: <110 mg/dL before meals <200 mg/dL all other times of the day Specimen Anatomical Collection Method Collection Time Receive d Time (Source) Location / / Volume Laterality Blood specimen 09/02/2013 3:24 AM 014 3:24 (specimen) EST AM EST Leilani Keller MD POINT OF CARE TEST ORDERABLE S Performing Organization Address City/[facility]/ZIP Code Phon e Number [address] CERNER MILLENNIUM POCT Glucose [...] Organization Address City/State/ZIP Code Phon e Number [address] CERNER MILLENNIUM POCT Glucose [...] CARE TEST ORDERABLE S Performing Organization Address City/[facility]/[place] [address] CERNER MILLENNIUM POCT Glucose [...] CARE TEST ORDERABLE S Performing Organization Address City/[facility]/ZIP Code Phon e Number [address] CERNER MILLENNIUM POCT Glucose [...] Organization Address City/State/ZIP Code Phon e Number [place] [phone] CERNER MILLENNIUM (ABNORMAL) Differential, Automated (09/01/2013 8:00 AM EST) [facility] Method Time Signature Neutrophils % 94.0 [...] Keller MD HEMATOLOGY ORDERABLES Performing Organization Address [facility]/[place] [address] CERNER MILLENNIUM (ABNORMAL) CBC [...] Keller MD HEMATOLOGY ORDERABLES Performing Organization Address City/[facility]/ZIP Code Phon e Number [address] CERNER MILLENNIUM (ABNORMAL) Basic [...] intervals supplied above were not validated at [facility]. Results from pediatri c patients should be [...] Organization Address City/State/ZIP Code Phon e Number [place] [phone] CERNER MILLENNIUM Tacrolimus level [...] Keller MD CHEMISTRY ORDERABLES Performing Organization Address City/[facility]/ZIP Code Phon e Number [address] CERNER MILLENNIUM Phosphorus (09/01/2013 8:00 AM EST) athologist Signature Phosphorus 2.6 2.5 - 4.5 CERNER mg/dL MILLENNIUM Specimen Anatomical Collection Method Collection Time Receive d Time (Source) Location / / Volume Laterality Blood specimen 09/01/2013 8:00 AM 014 8:16 (specimen) EST AM EST Resulting Agency Comment Spec In Lab Leilani Keller MD CHEMISTRY ORDERABLES Performing Organization Address City/[facility]/ZIP Code Phon e Number [address] CERNER MILLENNIUM (ABNORMAL) Lipase (09/01/2013 8:00 AM EST) athologist Signature Lipase 82 (H) 0 - 60 CERNER unit/L MILLENNIUM Specimen Anatomical Collection Method Collection Time Receive d Time (Source) Location / / Volume Laterality Blood specimen 09/01/2013 8:00 AM 014 8:16 (specimen) EST AM EST Resulting Agency Comment Spec In Lab Leilani Keller MD CHEMISTRY ORDERABLES Performing Organization Address City/[facility]/ZIP Code Phon e Number [address] CERNER MILLENNIUM Amylase (09/01/2013 8:00 AM EST) athologist Signature Amylase 86 28 - 100 CERNER unit/L MILLENNIUM Specimen Anatomical Collection Method Collection Time Receive d Time (Source) Location / / Volume Laterality Blood specimen 09/01/2013 8:00 AM 014 8:16 (specimen) EST AM EST Resulting Agency Comment Spec In Lab Leilani Keller MD CHEMISTRY ORDERABLES Performing Organization Address City/[facility]/ZIP Code Phon e Number [address] CERNER MILLENNIUM Magnesium (09/01/2013 8:00 AM EST) P athologist Signature Magnesium 0.76 0.69 - 1.07 CERNER mmol/L MILLENNIUM Specimen Anatomical Collection Method Collection Time Receive d Time (Source) Location / / Volume Laterality Blood specimen 09/01/2013 8:00 AM 014 8:16 (specimen) EST AM EST Resulting Agency Comment Spec In Lab Leilani Keller MD CHEMISTRY ORDERABLES Performing Organization Address City/[facility]/ZIP Code Phon e Number [address] CERNER MILLENNIUM POCT Glucose [...] Organization Address City/State/ZIP Code Phon e Number [address] CERNER MILLENNIUM POCT Glucose [...] Organization Address City/State/[place] [address] CERNER MILLENNIUM POCT Glucose [...] CARE TEST ORDERABLE S Performing Organization Address City/[facility]/ZIP Code Phon e Number [address] CERNER MILLENNIUM POCT Glucose [...] CARE TEST ORDERABLE S Performing Organization Address City/[facility]/[place] [address] CERNER MILLENNIUM POCT Glucose [...] Organization Address City/State/[place] [address] CERNER MILLENNIUM POCT Glucose [...] Organization Address City/State/ZIP Code Phon e Number [address] CERNER MILLENNIUM POCT Glucose [...] Organization Address City/State/ZIP Code Phon e Number [address] CERNER MILLENNIUM POCT Glucose [...] Address City/State/ZIP [place] [address] CERNER MILLENNIUM (ABNORMAL) Differential, Automated (08/31/2013 3:13 AM EST) [facility] Method Time Signature Neutrophils % 95.5 [...] Address City/State/ZIP Code Phon e Number TIFF[place] [address] CERNER MILLENNIUM (ABNORMAL) CBC [...] Organization Address City/State/[place] [address] CERNER MILLENNIUM (ABNORMAL) Basic [...] intervals supplied above were not validated at [facility]. Results from pediatri c patients should be [...] Organization Address City/State/[place] [address] CERNER MILLENNIUM Phosphorus (08/31/2013 3:13 AM EST) P athologist Signature Phosphorus 3.2 2.5 - 4.5 CERNER mg/dL MILLENNIUM Specimen Anatomical Collection Method Collection Time Receive d Time (Source) Location / / Volume Laterality Blood specimen 08/31/2013 3:13 AM 014 3:20 (specimen) EST AM EST Resulting Agency Comment Spec In Lab Leilani Keller MD CHEMISTRY ORDERABLES Performing Organization Address City/[facility]/ZIP Code Phon e Number [address] CERNER MILLENNIUM Lipase (08/31/2013 3:13 AM EST) P athologist Signature Lipase 53 0 - 60 CERNER unit/L MILLENNIUM Specimen Anatomical Collection Method Collection Time Receive d Time (Source) Location / / Volume Laterality Blood specimen 08/31/2013 3:13 AM 014 3:20 (specimen) EST AM EST Resulting Agency Comment Spec In Lab Leilani Keller MD CHEMISTRY ORDERABLES Performing Organization Address City/[facility]/ZIP Code Phon e Number [address] CERNER MILLENNIUM Amylase (08/31/2013 3:13 AM EST) athologist Signature Amylase 60 28 - 100 CERNER unit/L MILLENNIUM Specimen Anatomical Collection Method Collection Time Receive d Time (Source) Location / / Volume Laterality Blood specimen 08/31/2013 3:13 AM 014 3:20 (specimen) EST AM EST Resulting Agency Comment Spec In Lab Leilani Keller MD CHEMISTRY ORDERABLES Performing Organization Address City/[facility]/ZIP Code Phon e Number [address] [facility] M[facility]UM Magnesium (08/31/2013 3:13 AM EST) P athologist Signature Magnesium 0.88 0.69 - 1.07 CERNER mmol/L MILLENNIUM Specimen Anatomical Collection Method Collection Time Receive d Time (Source) Location / / Volume Laterality Blood specimen 08/31/2013 3:13 AM 014 3:20 (specimen) EST AM EST Resulting Agency Comment Spec In Lab Leilani Keller MD CHEMISTRY ORDERABLES Performing Organization Address City/[facility]/ZIP Code Phon e Number [address] [facility] POCT Glucose (08/30/2013 11:16 PM EST) P [...] CARE TEST ORDERABLE S Performing Organization Address City/[facility]/ZIP Code Phon e Number [address] CERNER MILLENNIUM POCT Glucose [...] CARE TEST ORDERABLE S Performing Organization Address City/[facility]/ZIP Code Phon e Number [address] CERNER MILLENNIUM POCT Glucose [...] CARE TEST ORDERABLE S Performing Organization Address City/[facility]/ZIP Code Phon e Number [address] CERNER MILLENNIUM XR VAS [...] Organization Address City/State/[place] [address] CERNER MILLENNIUM POCT Glucose [...] Organization Address City/State/ZIP Code Phon e Number [address] CERNER MILLENNIUM POCT Glucose [...] Organization Address City/State/ZIP Code Phon e Number [address] CERNER MILLENNIUM POCT Glucose [...] Organization Address City/State/ZIP Code Phon e Number [address] CERNER MILLENNIUM POCT Glucose [...] Organization Address City/State/[place] [address] CERNER MILLENNIUM POCT Glucose [...] Organization Address City/State/[place] [address] CERNER MILLENNIUM (ABNORMAL) Differential, [...] Organization Address City/State/[place] [address] CERNER MILLENNIUM (ABNORMAL) Basic [...] intervals supplied above were not validated at [facility]. Results from pediatri c patients should be interpreted in conjunction to the patient's age, height and muscle mass. Sodium 141 135 - 145 mmol/L CERNER LAAL NIUM Potassium 3.9 3.5 - 5.0 mmol/L [...] Organization Address City/State/[place] [address] CERNER MILLENNIUM (ABNORMAL) CBC [...] RDWSD 41.8 35.0 - CERNER 46.0 fL [facility] RDWCV 12.8 10.9 - CERNER 14.4 % [facility] MPV 10.9 9.0 - 12.0 CERNER fL [facility] Specimen Anatomical Collection Method Collection Time Receive d Time (Source) Location / / Volume Laterality Blood specimen 08/30/2013 6:35 AM 013 6:38 (specimen) EST AM EST Resulting Agency Comment Spec In Lab Leilani Keller MD HEMATOLOGY ORDERABLES Performing Organization Address City/State/ZIP Code Phon e Number [address] CERNER MILLENNIUM POCT Glucose (08/30/2013 6:06 AM EST) athologist Signature POC Glucose 130 60 - 199 CERNER mg/dL [facility] Comment: Supplemental ranges: <110 mg/dL before meals <200 mg/dL all other times of the day Specimen Anatomical Collection Method Collection Time Receive d Time (Source) Location / / Volume Laterality Blood specimen 08/30/2013 6:06 AM 013 6:06 (specimen) EST AM EST Leilani Keller MD POINT OF CARE TEST ORDERABLE S Performing Organization Address City/[facility]/ZIP Code Phon e Number [address] CERNER MILLENNIUM POCT Glucose (08/30/2013 5:03 AM EST) athologist Signature POC Glucose 130 60 - 199 CERNER mg/dL [facility] Comment: Supplemental ranges: <110 mg/dL before meals <200 mg/dL all other times of the day Specimen Anatomical Collection Method Collection Time Receive d Time (Source) Location / / Volume Laterality Blood specimen 08/30/2013 5:03 AM 013 5:03 (specimen) EST AM EST Leilani Keller MD POINT OF CARE TEST ORDERABLE S Performing Organization Address City/[facility]/ZIP Code Phon e Number [address] CERNER MILLENNIUM POCT Glucose [...] Organization Address City/State/ZIP Code Phon e Number [address] CERNER MILLENNIUM POCT Glucose [...] CARE TEST ORDERABLE S Performing Organization Address City/[facility]/ZIP Code Phon e Number [address] CERNER MILLENNIUM POCT Glucose [...] CARE TEST ORDERABLE S Performing Organization Address City/[facility]/ZIP Code Phon e Number [address] CERNER MILLENNIUM POCT Glucose [...] Organization Address City/State/ZIP Code Phon e Number [place] [phone] CERNER MILLENNIUM (ABNORMAL) Differential, Automated (08/30/2013 12:45 AM EST) [facility] Method Time Signature Neutrophils % 96.9 [...] Organization Address City/State/ZIP Code Phon e Number [address] CERNER MILLENNIUM Glucose, random [...] Keller MD CHEMISTRY ORDERABLES Performing Organization Address City/[facility]/ZIP Code Phon e Number [address] CERNER MILLENNIUM (ABNORMAL) Creatinine (08/30/2013 12:45 AM EST) athologist Signature Creatinine 0.68 (L) 0.80 - CERNER 1.50 mg/dL MILLENNIUM Comment: Please note that the pediatric reference intervals supplied above were not validated at [facility]. Results from pediatri c patients should be [...] Organization Address City/State/[place] [address] CERNER MILLENNIUM BUN (08/30/2013 12:45 AM EST) P athologist Signature BUN 18 10 - 20 CERNER mg/dL MILLENNIUM Specimen Anatomical Collection Method Collection Time Receive d Time (Source) Location / / Volume Laterality Blood specimen 08/30/2013 12:45 3 1:00 (specimen) AM EST AM EST Resulting Agency Comment Spec In Lab Leilani Keller MD CHEMISTRY ORDERABLES Performing Organization Address City/[facility]/[place] [address] CERNER MILLENNIUM Electrolytes panel [...] Keller MD CHEMISTRY ORDERABLES Performing Organization Address City/[facility]/[place] [address] CERNER MILLENNIUM (ABNORMAL) CBC [...] Keller MD HEMATOLOGY ORDERABLES Performing Organization Address City/[facility]/ZIP Code Phon e Number [address] CERNER MILLENNIUM Phosphorus (08/30/2013 12:45 AM EST) P athologist Signature Phosphorus 3.0 2.5 - 4.5 CERNER mg/dL MILLENNIUM Specimen Anatomical Collection Method Collection Time Receive d Time (Source) Location / / Volume Laterality Blood specimen 08/30/2013 12:45 3 1:00 (specimen) AM EST AM EST Resulting Agency Comment Spec In Lab Leilani Keller MD CHEMISTRY ORDERABLES Performing Organization Address City/[facility]/ZIP Code Phon e Number [address] CERNER MILLENNIUM Lipase (08/30/2013 [...] Organization Address City/State/ZIP Code Phon e Number [address] CERNER MILLENNIUM Amylase (08/30/2013 [...] Organization Address City/State/ZIP Code Phon e Number [address] CERNER MILLENNIUM Magnesium (08/30/2013 12:45 AM EST) athologist Signature Magnesium 0.80 0.69 - 1.07 CERNER mmol/L [facility] Specimen Anatomical Collection Method Collection Time Receive d Time (Source) Location / / Volume Laterality Blood specimen 08/30/2013 12:45 3 1:00 (specimen) AM EST AM EST Resulting Agency Comment Spec In Lab Leilani Keller MD CHEMISTRY ORDERABLES Performing Organization Address City/State/ZIP Code Phon e Number [address] CERNER MILLENNIUM POCT Glucose (08/30/2013 12:08 AM EST) athologist Signature POC Glucose 140 60 - 199 CERNER mg/dL [facility] Comment: Supplemental ranges: <110 mg/dL before meals <200 mg/dL all other times of the day Specimen Anatomical Collection Method Collection Time Receive d Time (Source) Location / / Volume Laterality Blood specimen 08/30/2013 12:08 3 (specimen) AM EST 12:08 AM EST Leilani Keller MD POINT OF CARE TEST ORDERABLE S Performing Organization Address City/[facility]/[place] [address] CERNER MILLENNIUM POCT Glucose [...] CARE TEST ORDERABLE S Performing Organization Address City/[facility]/[place] [address] CERNER MILLENNIUM POCT Glucose [...] CARE TEST ORDERABLE S Performing Organization Address City/[facility]/ZIP Code Phon e Number [address] CERNER MILLENNIUM POCT Glucose [...] Organization Address City/State/ZIP Code Phon e Number [address] CERNER MILLENNIUM POCT Glucose [...] Organization Address City/State/[place] [address] CERNER MILLENNIUM (ABNORMAL) Differential, [...] Organization Address City/State/[place] [address] CERNER MILLENNIUM (ABNORMAL) Basic [...] intervals supplied above were not validated at [facility]. Results from pediatri c patients should be [...] Organization Address City/State/ZIP Code Phon e Number [place] [phone] CERNER MILLENNIUM (ABNORMAL) CBC [...] Organization Address City/State/ZIP Code Phon e Number [address] CERNER MILLENNIUM POCT Glucose [...] CARE TEST ORDERABLE S Performing Organization Address City/[facility]/ZIP Code Phon e Number [address] CERNER MILLENNIUM POCT Glucose [...] CARE TEST ORDERABLE S Performing Organization Address City/[facility]/ZIP Code Phon e Number [address] CERNER MILLENNIUM POCT Glucose [...] CARE TEST ORDERABLE S Performing Organization Address City/[facility]/ZIP Code Phon e Number [address] CERNER MILLENNIUM POCT Glucose [...] Organization Address City/State/ZIP Code Phon e Number [address] CERNER MILLENNIUM POCT Glucose [...] Organization Address City/State/ZIP Code Phon e Number [address] CERNER MILLENNIUM POCT Glucose [...] Organization Address City/State/ZIP Code Phon e Number [place] [phone] CERNER MILLENNIUM (ABNORMAL) Differential, Automated (08/29/2013 12:25 PM EST) [facility] Method Time Signature Neutrophils % 97.9 [...] Address City/State/ZIP Code Phon [place] [address] CERNER MILLENNIUM (ABNORMAL) Basic [...] intervals supplied above were not validated at [facility]. Results from pediatri c patients should be [...] Keller MD CHEMISTRY ORDERABLES Performing Organization Address City/[facility]/ZIP Code Phon e Number [address] CERNER MILLENNIUM (ABNORMAL) CBC [...] Keller MD HEMATOLOGY ORDERABLES Performing Organization Address City/[facility]/ZIP Code Phon e Number [address] CERNER MILLENNIUM POCT Glucose [...] Organization Address City/State/ZIP Code Phon e Number [address] CERNER MILLENNIUM POCT Glucose [...] Organization Address City/State/ZIP Code Phon e Number [address] CERNER MILLENNIUM POCT Glucose [...] Organization Address City/State/ZIP Code Phon e Number [address] CERNER MILLENNIUM POCT Glucose (08/29/2013 8:59 AM EST) athologist Signature POC Glucose 130 60 - 199 CERNER mg/dL [facility] Comment: Supplemental ranges: <110 mg/dL before meals <200 mg/dL all other times of the day Specimen Anatomical Collection Method Collection Time Receive d Time (Source) Location / / Volume Laterality Blood specimen 08/29/2013 8:59 AM 013 8:59 (specimen) EST AM EST Leilani Keller MD POINT OF CARE TEST ORDERABLE S Performing Organization Address City/State/[place] [address] CERNER MILLENNIUM POCT Glucose (08/29/2013 7:51 AM EST) athologist Signature POC Glucose 108 60 - 199 CERNER mg/dL [facility] Comment: Supplemental ranges: <110 mg/dL before meals <200 mg/dL all other times of the day Specimen Anatomical Collection Method Collection Time Receive d Time (Source) Location / / Volume Laterality Blood specimen 08/29/2013 7:51 AM 013 7:51 (specimen) EST AM EST Leilani Keller MD POINT OF CARE TEST ORDERABLE S Performing Organization Address City/State/ZIP Code Phon e Number [address] CERNER MILLENNIUM POCT Glucose (08/29/2013 7:12 AM EST) athologist Signature POC Glucose 114 60 - 199 CERNER mg/dL [facility] Comment: Supplemental ranges: <110 mg/dL before meals <200 mg/dL all other times of the day Specimen Anatomical Collection Method Collection Time Receive d Time (Source) Location / / Volume Laterality Blood specimen 08/29/2013 7:12 AM 013 7:12 (specimen) EST AM EST Leilani Keller MD POINT OF CARE TEST ORDERABLE S Performing Organization Address City/[facility]/ZIP Code Phon e Number [address] CERNER MILLENNIUM (ABNORMAL) Differential, Automated (08/29/2013 6:30 AM EST) [facility] gist Method Time Signature Neutrophils % 98.0 [...] Organization Address City/State/[place] [address] CERNER MILLENNIUM (ABNORMAL) Basic [...] intervals supplied above were not validated at [facility]. Results from pediatri c patients should be [...] Organization Address City/State/ZIP Code Phon e Number [place] [phone] CERNER MILLENNIUM (ABNORMAL) CBC [...] Keller MD HEMATOLOGY ORDERABLES Performing Organization Address City/[facility]/[place] [address] C[facility]ER [facility] POCT Glucose (08/29/2013 6:24 AM EST) athologist Signature POC Glucose 99 60 - 199 CERNER mg/dL [facility] Comment: Supplemental ranges: <110 mg/dL before meals <200 mg/dL all other times of the day Specimen Anatomical Collection Method Collection Time Receive d Time (Source) Location / / Volume Laterality Blood specimen 08/29/2013 6:24 AM 013 6:24 (specimen) EST AM EST Leilani Keller MD POINT OF CARE TEST ORDERABLE S Performing Organization Address City/[facility]/[place] [address] CERNER MILLENNIUM POCT Glucose [...] Organization Address City/State/ZIP Code Phon e Number [address] CERNER MILLENNIUM POCT Glucose [...] Organization Address City/State/ZIP Code Phon e Number [address] CERNER MILLENNIUM POCT Glucose [...] Organization Address City/State/[place] [address] CERNER MILLENNIUM POCT Glucose [...] Organization Address City/State/ZIP Code Phon e Number [address] CERNER MILLENNIUM POCT Glucose [...] CARE TEST ORDERABLE S Performing Organization Address City/[facility]/ZIP Code Phon e Number [address] CERNER MILLENNIUM (ABNORMAL) Differential, Automated (08/29/2013 12:30 AM EST) [facility] gist Method Time Signature Neutrophils % 98.4 [...] Organization Address City/State/[place] [address] CERNER MILLENNIUM Basic Metabolic Panel (non-fasting) (08/29/2013 12:30 AM EST) athologist Signature Glucose Lvl 124 60 - 199 CERNER mg/dL MILLENNIUM Comment: Diabetes: >=200 mg/dL plus symp toms BUN 12 10 - 20 mg/dL CERNER MILLENNIU M Creatinine 0.83 0.80 - 1.50 mg/dL CERNER MILL ENNIUM Comment: Please note that the pediatric reference intervals supplied above were not validated at [facility]. Results from pediatri c patients should be [...] Organization Address City/State/ZIP Code Phon e Number [place] [phone] CERNER MILLENNIUM (ABNORMAL) CBC [...] Keller MD HEMATOLOGY ORDERABLES Performing Organization Address City/[facility]/[place] [address] CERNER MILLENNIUM Phosphorus (08/29/2013 12:30 AM EST) P athologist Signature Phosphorus 3.5 2.5 - 4.5 CERNER mg/dL MILLENNIUM Specimen Anatomical Collection Method Collection Time Receive d Time (Source) Location / / Volume Laterality Blood specimen 08/29/2013 12:30 3 (specimen) AM EST 12:40 AM EST Resulting Agency Comment Spec In Lab Leilani Keller MD CHEMISTRY ORDERABLES Performing Organization Address City/[facility]/[place] [address] CERNER MILLENNIUM Lipase (08/29/2013 12:30 AM EST) P athologist Signature Lipase 29 0 - 60 CERNER unit/L MILLENNIUM Specimen Anatomical Collection Method Collection Time Receive d Time (Source) Location / / Volume Laterality Blood specimen 08/29/2013 12:30 3 (specimen) AM EST 12:40 AM EST Resulting Agency Comment Spec In Lab Leilani Keller MD CHEMISTRY ORDERABLES Performing Organization Address City/[facility]/[place] [address] CERNER MILLENNIUM Amylase (08/29/2013 12:30 AM EST) athologist Signature Amylase 44 28 - 100 CERNER unit/L MILLENNIUM Specimen Anatomical Collection Method Collection Time Receive d Time (Source) Location / / Volume Laterality Blood specimen 08/29/2013 12:30 3 (specimen) AM EST 12:40 AM EST Resulting Agency Comment Spec In Lab Leilani Keller MD CHEMISTRY ORDERABLES Performing Organization Address City/[facility]/ZIP Code Phon e Number [address] CERNER MILLENNIUM Magnesium (08/29/2013 12:30 AM EST) athologist Signature Magnesium 0.78 0.69 - 1.07 CERNER mmol/L MILLENNIUM Specimen Anatomical Collection Method Collection Time Receive d Time (Source) Location / / Volume Laterality Blood specimen 08/29/2013 12:30 3 (specimen) AM EST 12:40 AM EST Resulting Agency Comment Spec In Lab Leilani Keller MD CHEMISTRY ORDERABLES Performing Organization Address City/[facility]/ZIP Code Phon e Number [address] CERNER MILLENNIUM POCT Glucose [...] CARE TEST ORDERABLE S Performing Organization Address City/[facility]/ZIP Code Phon e Number [address] CERNER MILLENNIUM POCT Glucose [...] Organization Address City/State/[place] [address] CERNER MILLENNIUM POCT Glucose [...] CARE TEST ORDERABLE S Performing Organization Address City/[facility]/[place] [address] CERNER MILLENNIUM POCT Glucose [...] Organization Address City/State/ZIP Code Phon e Number [address] CERNER MILLENNIUM POCT Glucose [...] CARE TEST ORDERABLE S Performing Organization Address City/[facility]/[place] [address] CERNER MILLENNIUM POCT Glucose [...] CARE TEST ORDERABLE S Performing Organization Address City/[facility]/[place] [address] CERNER MILLENNIUM POCT Glucose [...] CARE TEST ORDERABLE S Performing Organization Address City/[facility]/ZIP Code Phon e Number [address] CERNER MILLENNIUM (ABNORMAL) Differential, Manual (08/28/2013 6:05 PM EST) [facility] gist Method Time Signature Neutrophil % 70 [...] Organization Address City/State/[place] [address] CERNER MILLENNIUM Basic Metabolic Panel (non-fasting) (08/28/2013 6:05 PM EST) athologist Signature Glucose Lvl 166 60 - 199 CERNER mg/dL MILLENNIUM Comment: Diabetes: >=200 mg/dL plus symp toms BUN 12 10 - 20 mg/dL CERNER MILLENNIU M Creatinine 0.89 0.80 - 1.50 mg/dL CERNER MILL ENNIUM Comment: Please note that the pediatric reference intervals supplied above were not validated at [facility]. Results from pediatri c patients should be [...] Organization Address City/State/[place] [address] CERNER MILLENNIUM (ABNORMAL) CBC [...] MPV 10.9 9.0 - 12.0 [facility]ER [facility]L [facility] Specimen Anatomical Collection Method Collection Time Receive d Time (Source) Location / / Volume Laterality Blood specimen 08/28/2013 6:05 PM 013 6:19 (specimen) EST PM EST Resulting Agency Comment Spec In Lab Leilani Keller MD HEMATOLOGY ORDERABLES Performing Organization Address City/[facility]/ZIP Code Phon e Number [address] CERNER MILLENNIUM POCT Glucose [...] CARE TEST ORDERABLE S Performing Organization Address City/[facility] Center/ZIP Code Phon e Number [address] CERNER MILLENNIUM POCT Glucose [...] CARE TEST ORDERABLE S Performing Organization Address City/[facility]/ZIP Code Phon e Number [address] CERNER MILLENNIUM APTT (08/28/2013 [...] Keller MD HEMATOLOGY ORDERABLES Performing Organization Address City/[facility]/[place] [address] [facility] (ABNORMAL) Prothrombin Time (08/28/2013 3:50 PM EST) P athologist Signature PT 15.7 (H) 12.0 - 15.0 CERNER sec [facility] Comment: [facility] Transfusion Committee Guidelines: I NR less than 2.0, PTT less than OR equal to 43.5 seconds, or Fibrinogen gre ater than or equal to 100 mg/dl indicate adequate procoagulant activity for hemostasis in patients without underlying bleeding disorders. INR 1.2 (H) 0.9 - 1.1 [facility] Specimen Anatomical Collection Method Collection Time Receive d Time (Source) Location / / Volume Laterality Blood specimen 08/28/2013 3:50 PM 013 3:56 (specimen) EST PM EST Resulting Agency Comment Spec In Lab Leilani Keller MD HEMATOLOGY ORDERABLES Performing Organization Address City/[facility]/ZIP Code Phon e Number [address] [facility] POCT Glucose (08/28/2013 2:37 PM EST) P athologist Signature POC Glucose 94 60 - 199 [facility] mg/dL [facility] Comment: Supplemental ranges: <110 mg/dL before meals <200 mg/dL all other times of the day Specimen Anatomical Collection Method Collection Time Receive d Time (Source) Location / / Volume Laterality Blood specimen 08/28/2013 2:37 PM 013 2:37 (specimen) EST PM EST Leilani Keller MD POINT OF CARE TEST ORDERABLE S Performing Organization Address City/[facility]/[place] [address] CERNER MILLENNIUM POCT Glucose [...] Organization Address City/State/ZIP Code Phon e Number [address] CERNER MILLENNIUM POCT Glucose [...] CARE TEST ORDERABLE S Performing Organization Address City/[facility]/ZIP Code Phon e Number [address] CERNER MILLENNIUM (ABNORMAL) Differential, Automated (08/28/2013 11:40 AM EST) [facility] gist Method Time Signature Neutrophils % 99.0 [...] Organization Address City/State/ZIP Code Phon e Number [place] [phone] CERNER MILLENNIUM (ABNORMAL) CBC [...] Platelets 175 145 - 370 CERNER x10(3)/mcL [facility] RDWSD 40.2 35.0 - CERNER 46.0 fL [facility] RDWCV 12.5 10.9 - CERNER 14.4 % [facility] MPV 10.7 9.0 - 12.0 CERNER fL [facility] Specimen Anatomical Collection Method Collection Time Receive d Time (Source) Location / / Volume Laterality Blood specimen 08/28/2013 11:40 3 (specimen) AM EST 11:48 AM EST Resulting Agency Comment Spec In Lab Leilani Keller MD HEMATOLOGY ORDERABLES Performing Organization Address City/[facility]/ZIP Code Phon e Number [address] [facility] APTT (08/28/2013 11:40 AM EST) P athologist Signature PTT 32 25 - 35 sec [facility] Comment: Recommended therapeutic PTT range for fu ll dose unfractionated heparin is 80-114 seconds. Specimen Anatomical Collection Method Collection Time Receive d Time (Source) Location / / Volume Laterality Blood specimen 08/28/2013 11:40 3 (specimen) AM EST 11:48 AM EST Resulting Agency Comment Spec In Lab Leilani Keller MD HEMATOLOGY ORDERABLES Performing Organization Address City/[facility]/ZIP Code Phon e Number [address] [facility] (ABNORMAL) Prothrombin Time (08/28/2013 11:40 AM EST) P athologist Signature PT 16.0 (H) 12.0 - 15.0 [facility] Comment: [facility] Transfusion Committee Guidelines: I NR less than 2.0, PTT less than OR equal to 43.5 seconds, or Fibrinogen gre ater than or equal to 100 mg/dl indicate adequate procoagulant activity for hemostasis in patients without underlying bleeding disorders. INR 1.2 (H) 0.9 - 1.1 [facility] Specimen Anatomical Collection Method Collection Time Receive d Time (Source) Location / / Volume Laterality Blood specimen 08/28/2013 11:40 3 (specimen) AM EST 11:48 AM EST Resulting Agency Comment Spec In Lab Leilani Keller MD HEMATOLOGY ORDERABLES Performing Organization Address City/State/ZIP Code Phon e Number [place] [phone] CERNER MILLENNIUM (ABNORMAL) Comprehensive [...] intervals supplied above were not validated at [facility]. Results from pediatri c patients should be [...] Keller MD CHEMISTRY ORDERABLES Performing Organization Address City/[facility]/ZIP Code Phon e Number [address] CERNER MILLENNIUM (ABNORMAL) Magnesium (08/28/2013 11:40 AM EST) P athologist Signature Magnesium 0.50 (L) 0.69 - 1.07 CERNER mmol/L MILLENNIUM Specimen Anatomical Collection Method Collection Time Receive d Time (Source) Location / / Volume Laterality Blood specimen 08/28/2013 11:40 3 (specimen) AM EST 11:48 AM EST Resulting Agency Comment Spec In Lab Leilani Keller MD CHEMISTRY ORDERABLES Performing Organization Address City/[facility]/ZIP [facility] [place] [address] CERNER [employer]NIUM XR chest PA or AP- 1 view [...] Organization Address City/State/[place] [address] CERNER MILLENNIUM (ABNORMAL) BLOOD [...] Comment: Total Hemoglobin (in gm/dL) ?Based on [facility] Hematology ran ges: ?Age ?Referen ce Range [...] CERNER MILL ENNIUM Comment: Noted by instrument repairer steam [employer]. Please note: Patients with WBC >100,000 may [...] Organization Address City/State/[place] [address] CERNER MILLENNIUM (ABNORMAL) BLOOD [...] Comment: Total Hemoglobin (in gm/dL) ?Based on [facility] Hematology ran ges: ?Age ?Referen ce Range [...] Organization Address City/State/[place] [address] CERNER MILLENNIUM (ABNORMAL) BLOOD [...] Comment: Total Hemoglobin (in gm/dL) ?Based on [facility] Hematology ran ges: ?Age ?Referen ce Range [...] CERNER MILL ENNIUM Comment: Noted by instrument repairer [employer]. Please note: Patients with WBC >100,000 may [...] Keller MD CHEMISTRY ORDERABLES Performing Organization Address City/[facility]/[place] [address] CERNER MILLENNIUM Prepare RBC (08/28/2013 8:40 AM EST) P athologist Signature Dispensed? Yes CERNER MILLENNIUM Specimen Anatomical Collection Method Collection Time Receive d Time (Source) Location / / Volume Laterality Blood specimen 08/28/2013 8:40 AM 013 8:38 (specimen) EST AM EST Leilani Keller MD BLOOD BANK ORDERABLES Performing Organization Address City/[facility]/ZIP Code Phon [place] [facility] [place] [address] CERNER MILLENNIUM (ABNORMAL) BLOOD [...] Comment: Total Hemoglobin (in gm/dL) ?Based on [facility] Hematology ran ges: ?Age ?Referen ce Range [...] Organization Address City/State/ZIP Code Phon e Number [address] CERNER MILLENNIUM (ABNORMAL) POCT [...] Organization Address City/State/ZIP Code Phon e Number [address] CERNER MILLENNIUM POCT Glucose [...] Organization Address City/State/[place] [address] CERNER MILLENNIUM Differential, Automated [...] Organization Address City/State/ZIP Code Phon e Number [address] [facility] Varicella zoster Antibody, IgG (08/28/2013 1:34 AM EST) P athologist Signature Varicella IgG Pos [facility] Specimen Anatomical Collection Method Collection Time Receive d Time (Source) Location / / Volume Laterality Blood specimen 08/28/2013 1:34 AM 013 8:31 (specimen) EST AM EST Resulting Agency Comment Spec In Lab Leilani Keller MD IMMUNOLOGY ORDERABLES Performing Organization Address City/[facility]/ZIP Code Phon e Number [address] [facility] Hepatitis C Antibody (08/28/2013 1:34 AM EST) Analysis Performed At Patho logist Time Signature Hepatitis C Ab Negative Negative [facility] Comment: Please note that as [...] Keller MD IMMUNOLOGY ORDERABLES Performing Organization Address City/[facility]/ZIP Code Phon e Number [address] [facility] HIV (08/28/2013 1:34 AM EST) P athologist Signature HIV 1/2 Ab Negative Negative [facility] Specimen Anatomical Collection Method Collection Time Receive d Time (Source) Location / / Volume Laterality Blood specimen 08/28/2013 1:34 AM 013 1:36 (specimen) EST AM EST Resulting Agency Comment Spec In Lab Leilani Keller MD IMMUNOLOGY ORDERABLES Performing Organization Address City/[facility]/ZIP Code Phon e Number [address] [facility] CMV Antibody, IgG (08/28/2013 1:34 AM EST) P athologist Signature CMV IgG Neg Neg CERNER MILLENNIUM Specimen Anatomical Collection Method Collection Time Receive d Time (Source) Location / / Volume Laterality Blood specimen 08/28/2013 1:34 AM 013 8:31 (specimen) EST AM EST Resulting Agency Comment Spec In Lab Leilani Keller MD IMMUNOLOGY ORDERABLES Performing Organization Address City/[facility]/ZIP Code Phon e Number [address] CERNER MILLENNIUM APTT (08/28/2013 [...] Keller MD HEMATOLOGY ORDERABLES Performing Organization Address City/[facility]/ZIP Code Phon e Number [address] CERNER MILLENNIUM Prothrombin Time (08/28/2013 1:34 AM EST) P athologist Signature PT 13.5 12.0 - 15.0 CERNER sec MILLENNIUM Comment: [facility] Transfusion Committee Guidelines: I NR less [...] Keller MD HEMATOLOGY ORDERABLES Performing Organization Address City/[facility]/[place] [address] CERNER MILLENNIUM Phosphorus (08/28/2013 1:34 AM EST) athologist Signature Phosphorus 2.8 2.5 - 4.5 CERNER mg/dL MILLENNIUM Specimen Anatomical Collection Method Collection Time Receive d Time (Source) Location / / Volume Laterality Blood specimen 08/28/2013 1:34 AM 013 1:36 (specimen) EST AM EST Resulting Agency Comment Spec In Lab Leilani Keller MD CHEMISTRY ORDERABLES Performing Organization Address City/[facility]/ZIP Code Phon e Number [address] CERNER MILLENNIUM Magnesium (08/28/2013 1:34 AM EST) athologist Signature Magnesium 0.79 0.69 - 1.07 CERNER mmol/L MILLENNIUM Specimen Anatomical Collection Method Collection Time Receive d Time (Source) Location / / Volume Laterality Blood specimen 08/28/2013 1:34 AM 013 1:36 (specimen) EST AM EST Resulting Agency Comment Spec In Lab Leliani Keller MD CHEMISTRY ORDERABLES Performing Organization Address City/State/ZIP Code Phon e Number [address] CERNER MILLENNIUM (ABNORMAL) [...] intervals supplied above were not validated at [facility]. Results from pediatri c patients should be [...] Organization Address City/State/ZIP Code Phon e Number [place] [phone] CERNER MILLENNIUM (ABNORMAL) CBC [...] Keller MD HEMATOLOGY ORDERABLES Performing Organization Address City/[facility]/ZIP Code Phon e Number [address] [facility] Antibody screen (08/28/2013 1:28 AM EST) Analysis Performed At Patho logist Time Signature Ab Screen Negative [facility] Interp [facility] Ex[facility] [phone] [facility] 572 on: MILLENNIUM Specimen Anatomical Collection Method Collection Time Receive d Time (Source) Location / / Volume Laterality Blood specimen 08/28/2013 1:28 AM 013 1:33 (specimen) EST AM EST Resulting Agency Comment Spec In Lab Leilani Keller MD BLOOD BANK ORDERABLES Performing Organization Address City/[facility] Phon e Number [address] [facility] ABO/Rh Typing (08/28/2013 1:28 AM EST) P athologist Signature ABORh Type O Pos CERNER MILLViedeaIUM Specimen Anatomical Collection Method Collection Time Receive d Time (Source) Location / / Volume Laterality Blood specimen 08/28/2013 1:28 AM 013 1:33 (specimen) EST AM EST Resulting Agency Comment Spec In Lab Leilani Keller MD BLOOD BANK ORDERABLES Performing Organization Address City/State/[place] [address] PeerbyNER LOVEThESIGNIUM XR chest routine PA & lateral (08/28/2013 [...] 441 ms MUSE SYSTEM (Bezet) Calculated P [place] 52 degrees MUSE SYSTEM Calculated R [place] 60 degrees MUSE SYSTEM Calculated T [place] 38 degrees MUSE SYSTEM INTERPRETATION Sinus bradycardia [...] 242 (H) 60 - 199 CERNER mg/dL [facility] Comment: Supplemental ranges: <110 mg/dL before meals <200 mg/dL all other times of the day Specimen Anatomical Collection Method Collection Time Receive d Time (Source) Location / / Volume Laterality Blood specimen 08/27/2013 11:35 3 (specimen) PM EST 11:35 PM EST Leilani Keller MD POINT OF CARE TEST ORDERABLE S Performing Organization Address City/State/[place] [address] [facility] documented in this encounter Visit [...] Provider: Na Bearden RN)[id number] (Given - Provider: Issi London RN) naproxen sodium (ANAPROX) tablet 550 [...] Routine documented in this encounter Care Teams Diver Pumper Relationship Specialty Start Date End Date Anna Dent MD PCP - General 12/03/10 [address] [place] [address] documented as of this encounter
--- OUTSIDE RECORDS SUMMARY | 2022-04-04 00:52 | XMS_ITS | Encounter Summary ---
:1965 Author Organization [facility] [place] [address] Care Team Providers Name Role Phone Anna Dent MD Primary Care Provider Encounter Details Date Type Department Care Team Description 08/27/2013 - Hospital Encounter 4 [place] Leilani Garcia Diabete s mellitus; 09/02/2013 Rafael Melendrez MD Immunosuppression; [facility] [address]li TRANSPLANT [place], [place] SURGERY [address] [place], [place] [phone] [facility] Social History Tobacco Use Types Packs/Day [...] TRANSPLANT SURGERY CLINIC DURING WORKING HOURS AT [phone], OR CALL AFTER CLINIC HOURS, WEEKENDS AND HOLIDAYS: ASK FOR THE SURGERY RESIDENT HIDE SHAKER IF ANY OF THE ABOVE OCCUR. Activity [...] Dx V42.83 Diabetic Supplies, Fax form to [facility] 100 each 09/02/2013 0 05/10/2014 Miscellan. [facility] for testing supplies 10 times per [...] mouth 0 10/18/2013 tablet 2 times daily. Herod-3 Fatty Take 5,000 mg by 0 01/08/201109/06 [...] home with VNA. Discharged summary faxed to [facility]. Message left with intake nurse. PICC line [...] TRANSPLANT NUTRITION Post-Transplant Discharge Diet Instruction This policy writer typist met with Richard Hsu a 47 year [...] URINE, TEST (ACETONE, URINE, TEST) STRP by [facility]Non-Drug; Combo Route) route. AMLODIPINE (NORVASC) 2.5 MG TABLET Take by mouth daily. ASPIRIN 325 MG TABLET Take by mouth daily. CALCIUM CARBONATE (CALCIUM 600 ORAL) Take 1,200 mg by mouth daily. CARVEDILOL (COREG) 3.125 MG TABLET Take by mouth 2 times daily (with meals). CITALOPRAM (CELEXA) 20 MG TABLET Take 40 mg by mouth daily. DIABETIC SUPPLIES, [place]ISCELLAN. [facility] Fax form to [facility] medical for testing supplies 10 [...] Melgar MD - 09/01/2013 7:53 AM EST [facility] NEPHROLOGY INPATIENT FOLLOW UP PATIENT: Rcihard Hsu : 1965 ROOM: [address] [place] [address]- ID: 47 y.o. male admitted for pancreas [...] w/Dr Talia Camarena MD Nephrology Fellow Pager# [phone] I examined the patient, reviewed all of [...] Pain controlled with PO medications and minimal MARKET STALL VENDOR Subjective: no complaints this AM, denies n/v/cp/sob. [...] insulin. HDS and Hb stable. Neuro: DC MARKET STALL VENDOR, continue PO dilaudid Cards: stable Pulm: IS, [...] close nmonitoring LONNIE YEUNG MD PGY1, pager [phone] Transplant Surgery I have seen and evaluated [...] home in AM with PICC line for snf hydration Leilani Keller MD - 08/31/2013 8:29 [...] Melgar MD - 08/30/2013 2:15 PM EST [facility] NEPHROLOGY INPATIENT FOLLOW UP PATIENT: Richard Hsu : 1965 [facility] ID: 47 y.o. male admitted for pancreas transplantation. Subjective: - Feels better - Tremors did not recur - NG tube taken out today - Has not passed gasses yet - Pain controlled w/MARKET STALL VENDOR MEDS: ??? [COMPLETED] ondansetron 4 mg Intravenous [...] w/Dr Talia Camarena MD Nephrology Fellow Pager# [phone] I examined the patient, reviewed all of [...] 1:55 PM EST Care Management/ CRC pager# [phone]/ Progress note and Discharge planning S: Getting a referral in to [facility] and [facility] would be terrific. I am a nurse, but I am also the patient's ! ( Tiffani speaking) O: Met with patient and patient's in conjunction with Leilani Smiley RN Transplant Coordinatorthis afternoon. Other family members present. Referral to [facility] as requested. Information faxed via discharge central. Referral to [facility] as requested. Discussion with MIGUELITO Ricardo. Information faxed via discharge central. Care Management note for MD Discharge Summary (with VNA and Infusion Vendor information) completed and pended by policy writer typist. Patient is POD# 2 pancreas transplant. Blood sugar range 111-145 since midnight. NGT D/C this morning. GERALD drain x1 to bulb suction (output of 300ml/24hr). Solumedrol 125mg IV today. Patient OOB with assistance. Patient to have PICC line placed this afternoon. [facility] A: Patient progressing post-op. Supportive and family. P: I will continue in CRC role, following patient's in-hospital course, offering support to patient/family, coordinating discharge planning effort. At time of patient's discharge, printed circuit board panels trimmer to call report to VNA and MD [...] insulin. HDS and Hb stable. 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 Disposition: to floor Yoalnda Dominguez RN - 08/30/2013 5:39 AM EST Nursing Progress Note Shift Events: 1999 - Report received. Pt AAOx4 and in the chair. NGT clamped due to recent administration of medications. Pt c/o 5/10 pain. According to Pt a comfortable pain level is between 4-5. Pt using MARKET STALL VENDOR approprietly. Pt at the bedside. VS stable [...] discharge medications have been ordered at the [facility] outpatient pharmacy and a family member will [...] Had some pain, but not using max director of retail operations Hb stable BP 139/79 Pulse 85 Temp [...] without insulin. HDS and Hb stable. Neuro: director of retail operations Cards: stable Pulm: IS GI: sips and [...] 4:19 PM EST Care Management/ CRC Pager# [phone]/ Initial assessment O: Patient sitting in recliner chair, napping. Adjunct Faculty did not awaken patient. Notes reviewed. Patient lives with his Tiffani in [facility]. Patient has [facility] and currently has CBA assecondary (but as of 08/31/13, CBA plan terminates). Call to Judi Manzano of Transplant Clinic to confirm. No Advance Directives on file here at [facility]. Patient is POD#1 pancreas transplant. At this [...] po/IV qday. Tylenol po q4hr prn. Hydromorphone MARKET STALL VENDOR. Zofran IV q8hr prn (dose today at [...] C/o 05/10 main. Pt encouraged to push MARKET STALL VENDOR button for any pain. CVP line flushed [...] [COMPLETED] alemtuzumab (CAMPATH) infusion 30 mg Intravenous Refrigeration Lead to OR ### ??? [COMPLETED] piperacillin-tazobactam 4.5 g Intravenous Refrigeration Lead to OR ### ??? [COMPLETED] ganciclovir 425 mg Intravenous Refrigeration Lead to OR ### ??? citalopram 40 mg [...] 4.5 g Intravenous Q6H ### ??? [DISCONTINUED] MARKET STALL VENDOR du ### ??? [COMPLETED] methylPREDNISolone 375 mg Intravenous Refrigeration Lead to OR ### ??? [COMPLETED] mycophenolate 1,000 mg Oral Refrigeration Lead to OR ### ??? [COMPLETED] diphenhydrAMINE 50 mg Intravenous Refrigeration Lead to OR ### ??? [COMPLETED] neomycin 1,000 mg Oral Q2H ### ??? [COMPLETED] acetaminophen 650 mg Oral Refrigeration Lead to OR ### ??? [COMPLETED] fluconazole 200 mg Intravenous Once ### ??? levothyroxine 200 mcg Oral QAM ### ??? [DISCONTINUED] sodium chloride 0.9 % 5 mL Intravenous Q12H ### ??? [DISCONTINUED] alemtuzumab (CAMPATH) infusion 30 mg Intravenous Refrigeration Lead to OR ### ??? [DISCONTINUED] piperacillin-tazobactam 4.5 g Intravenous Once ### ??? [DISCONTINUED] ganciclovir 485 mg Intravenous Refrigeration Lead to OR ### ??? [DISCONTINUED] insulin aspart 3-12 Units Subcutaneous Q4H [place]ONT ### ??? HYDROmorphone (DILAUDID) 1 mg/mL MARKET STALL VENDOR 30 mL Intravenous MARKET STALL VENDOR Only ### ??? MARKET STALL VENDOR du Intravenous Continuous ### ??? lactated ringers [...] marked. GERALD drainage sanguineous. Pain 8/10, using MARKET STALL VENDOR appropriately. Givenice chips. Will continue to monitor. [...] manage pain. 1120- Chest Xray done. 1205- MARKET STALL VENDOR teaching performed with return demonstration showing understanding. [...] mg by mouth 2 times daily. ??? 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 -Admit to [facility], floor status, transplant pod -EKG, CXR now for pre-operative workup -Holding home medications except for synthroid -Continue home insulin pump at current rate, POC glc checks q4h -Neomycin 1,000 mg q2h x2 doses -Abx pipe production worker to OR: Zosyn 4.5 gram, ganciclovir 487.5 mg, fluconazole 200 mg IV -Antirejection medications pipe production worker to OR: alemtuzumab 30 mg, methylprenisolone 375 mg, cellcept 1,000 mg po -Fluids: Hep lock -Diet: NPO -Labs: CBC, BMP, T&S, mag, phos, coags, HIV screen, hep C antibody, varicella antibody -Floor status, full code Conor Herbert M.D. PGY-2 Pager [phone] I have seen and examined the patient, [...] 09/03/2013 9:07 AM ESTAssociated Order(s): SCAN DOC: SPRINKLER WORKER Anibal Lucero RN - 08/30/2013 3:16 PM [...] to the planned procedure. Hand Hygiene: The real time operator did perform hand hygiene prior to line insertion. Catheter type: PICC Lot number: [id number] Procedure Technique: Skin was prepped with chlorhexidine. [...] Leilani Keller MD - Primary * Nestor ePrez MD - Resident-Surgeon Jeyson: Procedure(s): @PANCREATIC TRANSPLANT [...] Estimate Decreased RBC Morphology Abnormal Ovalocytes 1-5 Poplar Cells 1-5 Toxic Granulation Present POCT GLUCOSE [...] mg by mouth 2 times daily. ??? Herod-3 Fatty Acids-Vitamin E (FISH OIL) 1,000 mg [...] Diabetic Supplies, Miscellan. Misc Fax form to [facility] medical for testing supplies 10 times per [id number] each 12 ??? PROGRAF 1 mg capsule [...] Please check any medication changes with the [facility] transplant clinic. PCP: ANNA DENT MD Scheduled [...] nurse practitioner, clinical nurse specialist or physician's medical assistant ob gyn who is working directly with them, had [...] changes will need to be obtained from [facility] Transplant Clinic [phone] or from this patient's PCP: ANNA DENT MD [address] [place] [address] All A agencies which cover the area of patient's residence have been reviewed, either verbally or in writing, and patient/family have chosen the indicated home health care agency for home services. [facility] PHONE: [phone] FAX: [phone] RN visits to be within 24hr of [...] Response Notes Agency name and contact information [facility] Patient location post discharge home What services are requested Registered Nurse Start date 09/03/2013 Responsible MD post discharge contact info [facility] Dr. Leilani Keller and PCP Anna Dent Referral for Home Hydration Order Comments: Home Infusion Company Orders Home infusion company: [facility] [place], [place] or Patient name: Richard PerezpDOB: 1965 [...] Question Response Notes Vendor / contact information [facility] Patient location post discharge home Service requested PICC linen supply load builder and home IV hydration Start date 09/03/2013 Responsible MD post discharge contact info [facility] Dr. Leilani Keller and PCP Anna Dent [...] TRANSPLANT SURGERY CLINIC DURING WORKING HOURS AT [phone], OR CALL AFTER CLINIC HOURS, WEEKENDS AND HOLIDAYS: ASK FOR THE SURGERY RESIDENT HIDE SHAKER IF ANY OF THE ABOVE OCCUR. Activity [...] drawn. General Instructions None Provider Contact Information: [phone] Signed: LONNIE YEUNG MD 09/02/2013 I examined [...] Skin Integrity/Wound Healing Abdominal incision MIRYAM with avn; healing well without signs of infection or [...] Obstetric) Medicating with oral medications and using MARKET STALL VENDOR for BTP; states tolerable level of comfort; [...] rating 8/10 pain. Pt reminded to use MARKET STALL VENDOR button. Pt encouraged to notify RN of any change or increase in pain. Will continue to monitor. Plan of Care - Lilli Craig RN - 08/30/2013 11:35 AM EST Problem: Knowledge Deficit (Adult, Pediatric, , NICU, Obstetric) Goal: Knowledge Deficit: Knowledgeable about Subject/Topic Outcome: Outcome achieved Date Met: 08/30/13 Peripherally Inserted Central Catheter (PICC) Teaching Sheet Peripherally inserted central catheters ([id number]) (PICC) are used when you need IV [...] midline catheter? PICC lines are used for snf treatments. PICC lines may be used for [...] can be set up via the nurse Kitchen Runner to help you. What are possible complications [...] and Administration of [employer] 2005 [facility] Plan of Care - Yolanda Dominguez [...] pain scale. Pt encouraged to use dilaudid MARKET STALL VENDOR. Thereis relief in pain with using the MARKET STALL VENDOR. Pt states a comfortable and tolerable pain level is about a 4 on the numeric pain scale. Pt uses the numbers scale appropriately to rate pain. Pt verbalizes an understanding of factors that aggravate and relieve pain. Other methods utilized to reduce pain such as repositioning and distraction. Consult Note - Eriberto Melgar MD - 08/29/2013 8:36 AM EST [facility] HYPERTENSION/ NEPHROLOGY INPATIENT CONSULTATION PATIENT: Richard Hsu [...] piperacillin-tazobactam 4.5 g Intravenous Q6H ??? [DISCONTINUED] MARKET STALL VENDOR du ??? 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 Dilaudid MARKET STALL VENDOR in use. Pt educated on the importance to manage own pain with the use of MARKET STALL VENDOR. Pt uses the numbers scale appropriately to [...] Keller MD - 08/28/2013 11:33 AM EST [facility] Operative Note Patient Name: Richard Hsu : [id number] MR#: [id number] Case Date: 08/28/2013 Surgeon: Surgeon(s) and Role: [...] gland. After securing hemostasis, we constructed a fing-kg-pzad double layer handsewnanastomosis between the donor duodenum [...] with the hemostasis, we placed a 19 Pakistani Cachorro drain in the patient's right lower [...] Operative Note Patient Name: Richard Hsu : [id number] MR#: [id number] Case Date: 08/28/2013 Surgeon: Surgeon(s) and Role: [...] procedure are i n the results section. SPRINKLER WORKER SCAN 09/03/2013 9:07 Resu lts for this [...] section. TYPE AND SCREEN STAT 08/28/2013 1:28 ([facility]) AM EST XR CHEST PA AND Routine [...] documented in this encounter Results SCAN DOC: SPRINKLER WORKER (09/03/2013 9:07 AM EST) Narrative 09/03/2013 9:24 [...] City/State/ZIP Code Phon e Number [place] [id number] CERNER MILLENNIUM (ABNORMAL) Differential, [...] CERNER MILLENNIUM Ovalocytes 1-5 /HPF CERNER MILLENNIUM Poplar Cells 1-5 /HPF CERNER MILLENNIUM Toxic Present CERNER Granulation MILLENNIUM Specimen Anatomical Collection Method Collection Time Receive d Time (Source) Location / / Volume Laterality Blood specimen 09/02/2013 3:25 AM 014 3:43 (specimen) EST AM EST Resulting Agency Comment Spec In Lab Leilani Keller MD HEMATOLOGY ORDERABLES Performing Organization Address City/State/ZIP [place] [address] CERNER MILLENNIUM (ABNORMAL) CBC [...] 121 (L) 145 - 370 x10(3)/mcL CERNER [place] LLENNIUM RDWSD 39.3 35.0 - 46.0 fL [...] Address City/State/ZIP [place] [address] CERNER MILLENNIUM (ABNORMAL) Basic [...] intervals supplied above were not validated at [facility]. Results from pediatri c [...] City/[facility]/ZIP Code Phon e Number [address] CERNER MILLENNIUM Phosphorus (09/02/2013 [...] City/[facility]/ZIP Code Phon e Number [address] CERNER MILLENNIUM (ABNORMAL) Lipase [...] City/[facility]/ZIP Code Phon e Number [address] CERNER MILLENNIUM Amylase (09/02/2013 [...] City/[facility]/ZIP Code Phon e Number [address] CERNER MILLENNIUM (ABNORMAL) Magnesium [...] City/[facility]/ZIP Code Phon e Number [address] CERNER MILLENNIUM POCT Glucose [...] CARE TEST ORDERABLE S Performing Organization Address City/[facility]/ZIP Code Phon e Number [address] CERNER MILLENNIUM POCT Glucose [...] CARE TEST ORDERABLE S Performing Organization Address City/[facility]/ZIP Code Phon e Number [address] CERNER MILLENNIUM POCT Glucose [...] CARE TEST ORDERABLE S Performing Organization Address City/[facility]/ZIP Code Phon e Number [address] CERNER MILLENNIUM POCT Glucose [...] CARE TEST ORDERABLE S Performing Organization Address City/[facility]/ZIP Code Phon e Number [address] CERNER MILLENNIUM POCT Glucose [...] City/State/ZIP Code Phon e Number [place] [phone] CERNER MILLENNIUM (ABNORMAL) Differential, Automated (09/01/2013 8:00 AM EST) [facility] Method Time Signature Neutrophils % 94.0 [...] ORDERABLES Performing Organization Address City/[facility]/ZIP [facility] [place] [address] CERNER MILLENNIUM (ABNORMAL) CBC [...] City/[facility]/[place] [address] CERNER MILLENNIUM (ABNORMAL) Basic [...] intervals supplied above were not validated at [facility]. Results from pediatri c [...] City/State/ZIP Code Phon e Number [place] [phone] CERNER MILLENNIUM Tacrolimus level [...] Address City/State/ZIP Code Phon e Number [address] CERNER MILLENNIUM Phosphorus (09/01/2013 [...] Address City/State/ZIP Code Phon e Number [address] CERNER MILLENNIUM (ABNORMAL) Lipase [...] City/[facility]/ZIP Code Phon e Number [address] CERNER MILLENNIUM Amylase (09/01/2013 [...] City/[facility]/ZIP Code Phon e Number [address] CERNER MILLENNIUM Magnesium (09/01/2013 8:00 AM EST) P athologist Signature Magnesium 0.76 0.69 - 1.07 CERNER mmol/L MILLENNIUM Specimen Anatomical Collection Method Collection Time Receive d Time (Source) Location / / Volume Laterality Blood specimen 09/01/2013 8:00 AM 014 8:16 (specimen) EST AM EST Resulting Agency Comment Spec In Lab Leilani Keller MD CHEMISTRY ORDERABLES Performing Organization Address City/[facility] Phon e Number [address] CERNER MILLENNIUM POCT Glucose [...] CARE TEST ORDERABLE S Performing Organization Address City/[facility]/ZIP Code Phon e Number [address] CERNER MILLENNIUM POCT Glucose [...] Address City/State/[place] [address] CERNER MILLENNIUM POCT Glucose [...] CARE TEST ORDERABLE S Performing Organization Address City/[facility]/ZIP Code Phon e Number [place] [address] CERNER MILLENNIUM POCT Glucose [...] CARE TEST ORDERABLE S Performing Organization Address City/[facility]/ZIP Code [place] [address] CERNER MILLENNIUM POCT Glucose [...] Address City/State/ZIP Code Phon e Number [address] CERNER MILLENNIUM POCT Glucose [...] CARE TEST ORDERABLE S Performing Organization Address City/[facility]/ZIP Code Phon e Number [address] CERNER MILLENNIUM POCT Glucose [...] Address City/State/ZIP Code Phon e Number [address] CERNER MILLENNIUM POCT Glucose [...] Address City/State/ZIP Code [place] [address] CERNER MILLENNIUM (ABNORMAL) Differential, Automated (08/31/2013 3:13 AM EST) [facility] Method Time Signature Neutrophils % 95.5 [...] Address City/State/ZIP Code Phon e Number [place] DEANRAFA[address] CERNER MILLENNIUM (ABNORMAL) CBC [...] Address City/State/[place] [address] CERNER MILLENNIUM (ABNORMAL) Basic [...] intervals supplied above were not validated at [facility]. Results from pediatri c [...] Address City/State/ZIP [place] [address] CERNER MILLENNIUM Phosphorus (08/31/2013 [...] Address City/State/ZIP Code Phon e Number [address] CERNER MILLENNIUM Lipase (08/31/2013 [...] City/[facility]/ZIP Code Phon e Number [address] [facility] MILLEN[facility]UM Amylase (08/31/2013 3:13 AM EST) P [...] City/[facility]/ZIP Code Phon e Number [address] CERNER MILLENNIUM Magnesium (08/31/2013 [...] City/[facility]/ZIP Code Phon e Number [address] [facility] MILLENNIUM POCT Glucose (08/30/2013 11:16 PM EST) [...] CARE TEST ORDERABLE S Performing Organization Address City/[facility]/ZIP Code Phon e Number [address] CERNER MILLENNIUM POCT Glucose [...] CARE TEST ORDERABLE S Performing Organization Address City/[facility]/ZIP Code Phon e Number [address] CERNER MILLENNIUM POCT Glucose (08/30/2013 4:29 PM EST) P athologist Signature POC Glucose 152 60 - 199 CERNER mg/dL [facility] Comment: Supplemental ranges: <110 mg/dL before meals <200 mg/dL all other times of the day Specimen Anatomical Collection Method Collection Time Receive d Time (Source) Location / / Volume Laterality Blood specimen 08/30/2013 4:29 PM 013 4:29 (specimen) EST PM EST Leilani Keller MD POINT OF CARE TEST ORDERABLE S Performing Organization Address City/[facility]/ZIP Code Phon e Number [address] CERNER MILLENNIUM XR VAS [...] Address City/State/ZIP [place] [address] CERNER MILLENNIUM POCT Glucose [...] Address City/State/ZIP Code Phon e Number [address] CERNER MILLENNIUM POCT Glucose [...] CARE TEST ORDERMAN S Performing Organization Address City/[facility]/ZIP Code Phon e Number [address] CERNER MILLENNIUM POCT Glucose [...] Address City/State/[place] [address] CERNER MILLENNIUM POCT Glucose [...] Address City/State/ZIP Code Phon e Number [address] CERNER MILLENNIUM POCT Glucose [...] Address City/State/ZIP Code Phon e Number [address] CERNER MILLENNIUM (ABNORMAL) Differential, [...] Address City/State/[place] [address] CERNER MILLENNIUM (ABNORMAL) Basic [...] intervals supplied above were not validated at [facility]. Results from pediatri c [...] Address City/State/[place] [address] CERNER MILLENNIUM (ABNORMAL) CBC [...] MPV 10.9 9.0 - 12.0 CERNER fL [facility] Specimen Anatomical Collection Method Collection Time Receive d Time (Source) Location / / Volume Laterality Blood specimen 08/30/2013 6:35 AM 013 6:38 (specimen) EST AM EST Resulting Agency Comment Spec In Lab Leilani Keller MD HEMATOLOGY ORDERABLES Performing Organization Address City/State/ZIP Code Phon e Number [address] CERNER MILLENNIUM POCT Glucose (08/30/2013 6:06 AM EST) athologist Signature POC Glucose 130 60 - 199 CERNER mg/dL [facility] Comment: Supplemental ranges: <110 mg/dL before meals <200 mg/dL all other times of the day Specimen Anatomical Collection Method Collection Time Receive d Time (Source) Location / / Volume Laterality Blood specimen 08/30/2013 6:06 AM 013 6:06 (specimen) EST AM EST Leilani Keller MD POINT OF CARE TEST ORDERABLE S Performing Organization Address City/[facility]/ZIP Code Phon e Number [address] CERNER MILLENNIUM POCT Glucose (08/30/2013 5:03 AM EST) athologist Signature POC Glucose 130 60 - 199 CERNER mg/dL [facility] Comment: Supplemental ranges: <110 mg/dL before meals <200 mg/dL all other times of the day Specimen Anatomical Collection Method Collection Time Receive d Time (Source) Location / / Volume Laterality Blood specimen 08/30/2013 5:03 AM 013 5:03 (specimen) EST AM EST Leilani Keller MD POINT OF CARE TEST ORDERABLE S Performing Organization Address City/[facility]/ZIP Code Phon e Number [address] CERNER MILLENNIUM POCT Glucose [...] CARE TEST ORDERABLE S Performing Organization Address City/[facility]/ZIP Code Phon e Number [address] CERNER MILLENNIUM POCT Glucose [...] CARE TEST ORDERABLE S Performing Organization Address City/[facility]/ZIP Code Phon e Number [address] CERNER MILLENNIUM POCT Glucose [...] CARE TEST ORDERABLE S Performing Organization Address City/[facility]/ZIP Code Phon e Number [address] CERNER MILLENNIUM POCT Glucose [...] Address City/State/[place] [address] CERNER MILLENNIUM (ABNORMAL) Differential, Automated (08/30/2013 12:45 AM EST) [facility] Method Time Signature Neutrophils % 96.9 [...] Address City/State/[place] [address] CERNER MILLENNIUM Glucose, random [...] City/[facility]/ZIP Code Phon e Number [address] CERNER MILLENNIUM (ABNORMAL) Creatinine (08/30/2013 12:45 AM EST) athologist Signature Creatinine 0.68 (L) 0.80 - CERNER 1.50 mg/dL MILLENNIUM Comment: Please note that the pediatric reference intervals supplied above were not validated at [facility]. Results from pediatri c [...] City/[facility]/[place] [address] CERNER MILLENNIUM BUN (08/30/2013 12:45 AM EST) P athologist Signature BUN 18 10 - 20 CERNER mg/dL MILLENNIUM Specimen Anatomical Collection Method Collection Time Receive d Time (Source) Location / / Volume Laterality Blood specimen 08/30/2013 12:45 3 1:00 (specimen) AM EST AM EST Resulting Agency Comment Spec In Lab Leilani Keller MD CHEMISTRY ORDERABLES Performing Organization Address City/[facility] [place] [address] CERNER MILLENNIUM Electrolytes panel [...] City/[facility]/[place] [address] CERNER MILLENNIUM (ABNORMAL) CBC [...] City/[facility]/ZIP Code Phon e Number [address] CERNER MILLENNIUM Phosphorus (08/30/2013 [...] City/[facility]/ZIP Code Phon e Number [address] CERNER MILLENNIUM Lipase (08/30/2013 [...] Address City/State/ZIP Code Phon e Number [address] CERNER MILLENNIUM Amylase (08/30/2013 [...] Address City/State/ZIP Code Phon e Number [address] CERNER MILLENNIUM Magnesium (08/30/2013 12:45 AM EST) athologist [facility] Magnesium 0.80 0.69 - 1.07 CERNER mmol/L MILLENNIUM Specimen Anatomical Collection Method Collection Time Receive d Time (Source) Location / / Volume Laterality Blood specimen 08/30/2013 12:45 3 1:00 (specimen) AM EST AM EST Resulting Agency Comment Spec In Lab Leilani Keller MD CHEMISTRY ORDERABLES Performing Organization Address City/[facility]/ZIP [facility] Phon e Number [address] CERNER MILLENNIUM POCT Glucose (08/30/2013 12:08 AM EST) athologist Signature POC Glucose 140 60 - 199 CERNER mg/dL [facility] Comment: Supplemental ranges: <110 mg/dL before meals <200 mg/dL all other times of the day Specimen Anatomical Collection Method Collection Time Receive d Time (Source) Location / / Volume Laterality Blood specimen 08/30/2013 12:08 3 (specimen) AM EST 12:08 AM EST Leilani Keller MD POINT OF CARE TEST ORDERABLE S Performing Organization Address City/[facility]/ZIP Code Phon e Number [address] CERNER MILLENNIUM POCT Glucose [...] CARE TEST ORDERABLE S Performing Organization Address City/[facility]/[place]IP [place] [address] CERNER MILLENNIUM POCT Glucose [...] Address City/State/[place] [address] CERNER MILLENNIUM POCT Glucose [...] Address City/State/ZIP Code Phon e Number [address] CERNER MILLENNIUM POCT Glucose [...] Address City/State/[place] [address] CERNER MILLENNIUM (ABNORMAL) Differential, [...] City/State/ZIP Code Phon e Number [place] [phone] CERNER MILLENNIUM (ABNORMAL) Basic [...] intervals supplied above were not validated at [facility]. Results from pediatri c [...] City/State/ZIP Code Phon e Number [place] [phone] FARNAZ HERBERTIUM (ABNORMAL) CBC [...] City/[facility]/ZIP Code Phon e Number [address] CERNER MILLENNIUM POCT Glucose [...] CARE TEST ORDERABLE S Performing Organization Address City/[facility]/ZIP Code Phon e Number [address] CERNER MILLENNIUM POCT Glucose [...] CARE TEST ORDERABLE S Performing Organization Address City/[facility]/ZIP Code Phon e Number [address] CERNER MILLENNIUM POCT Glucose [...] CARE TEST ORDERABLE S Performing Organization Address City/[facility]/ZIP Code Phon e Number [address] CERNER MILLENNIUM POCT Glucose [...] CARE TEST ORDERABLE S Performing Organization Address City/[facility]/ZIP Code Phon e Number [address] CERNER MILLENNIUM POCT Glucose [...] Address City/State/ZIP Code Phon e Number [address] CERNER MILLENNIUM POCT Glucose [...] Address City/State/[place] [address] CERNER MILLENNIUM (ABNORMAL) Differential, Automated (08/29/2013 12:25 PM EST) [facility] Method Time Signature Neutrophils % 97.9 [...] Address City/State/ZIP [place] [address] CERNER MILLENNIUM (ABNORMAL) Basic [...] intervals supplied above were not validated at [facility]. Results from pediatri c [...] the following links into your internet browser. http://www.[employer].nih.gov/lab-evaluation. shtml http://www.kidney.org/professionals/ Specimen Anatomical Collection Method Collection Time Receive d Time (Source) Location / / Volume Laterality Blood specimen 08/29/2013 12:25 3 (specimen) PM EST 12:32 PM EST Resulting Agency Comment Spec In Lab Leilani Keller MD CHEMISTRY ORDERABLES Performing Organization Address City/[facility]/ZIP Code Phon e Number [address] CERNER MILLENNIUM (ABNORMAL) CBC [...] City/[facility]/[place] [address] CERNER MILLENNIUM POCT Glucose (08/29/2013 12:06 PM EST) athologist Signature POC Glucose 130 60 - 199 CERNER mg/dL [facility] Comment: Supplemental ranges: <110 mg/dL before meals <200 mg/dL all other times of the day Specimen Anatomical Collection Method Collection Time Receive d Time (Source) Location / / Volume Laterality Blood specimen 08/29/2013 12:06 3 (specimen) PM EST 12:06 PM EST Leliani Keller MD POINT OF CARE TEST ORDERABLE S Performing Organization Address City/State/ZIP Code Phon e Number [address] CERNER MILLENNIUM POCT Glucose (08/29/2013 11:10 AM EST) athologist Signature POC Glucose 119 60 - 199 CERNER mg/dL [facility] Comment: Supplemental ranges: <110 mg/dL before meals <200 mg/dL all other times of the day Specimen Anatomical Collection Method Collection Time Receive d Time (Source) Location / / Volume Laterality Blood specimen 08/29/2013 11:10 3 (specimen) AM EST 11:10 AM EST Leilani Keller MD POINT OF CARE TEST ORDERABLE S Performing Organization Address City/[facility]/ZIP Code Phon e Number [address] CERNER MILLENNIUM POCT Glucose (08/29/2013 10:18 AM EST) athologist Signature POC Glucose 120 60 - 199 CERNER mg/dL [facility] Comment: Supplemental ranges: <110 mg/dL before meals <200 mg/dL all other times of the day Specimen Anatomical Collection Method Collection Time Receive d Time (Source) Location / / Volume Laterality Blood specimen 08/29/2013 10:18 3 (specimen) AM EST 10:18 AM EST Leilani Keller MD POINT OF CARE TEST ORDERABLE S Performing Organization Address City/State/ZIP Code Phon e Number [address] CERNER MILLENNIUM POCT Glucose [...] Address City/State/ZIP Code Phon e Number [address] CERNER MILLENNIUM POCT Glucose (08/29/2013 7:51 AM EST) athologist Signature POC Glucose 108 60 - 199 CERNER mg/dL [facility] Comment: Supplemental ranges: <110 mg/dL before meals <200 mg/dL all other times of the day Specimen Anatomical Collection Method Collection Time Receive d Time (Source) Location / / Volume Laterality Blood specimen 08/29/2013 7:51 AM 013 7:51 (specimen) EST AM EST Leilani Keller MD POINT OF CARE TEST ORDERABLE S Performing Organization Address City/State/ZIP Code Phon e Number [address] CERNER MILLENNIUM POCT Glucose (08/29/2013 7:12 AM EST) athologist Signature POC Glucose 114 60 - 199 CERNER mg/dL [facility] Comment: Supplemental ranges: <110 mg/dL before meals <200 mg/dL all other times of the day Specimen Anatomical Collection Method Collection Time Receive d Time (Source) Location / / Volume Laterality Blood specimen 08/29/2013 7:12 AM 013 7:12 (specimen) EST AM EST Leilani Keller MD POINT OF CARE TEST ORDERABLE S Performing Organization Address City/[facility]/ZIP Code Phon e Number [address] CERNER MILLENNIUM (ABNORMAL) Differential, Automated (08/29/2013 6:30 AM EST) [facility] gist Method Time Signature Neutrophils % 98.0 [...] Address City/State/ZIP [place] [address] CERNER MILLENNIUM (ABNORMAL) Basic [...] intervals supplied above were not validated at [facility]. Results from pediatri c [...] City/State/ZIP Code Phon e Number [place] [phone] CERNER MILLENNIUM (ABNORMAL) CBC [...] City/[facility]/ZIP Code Phon e Number [address] CERNER [facility] POCT Glucose (08/29/2013 6:24 AM EST) athologist Signature POC Glucose 99 60 - 199 CERNER mg/dL [facility] Comment: Supplemental ranges: <110 mg/dL before meals <200 mg/dL all other times of the day Specimen Anatomical Collection Method Collection Time Receive d Time (Source) Location / / Volume Laterality Blood specimen 08/29/2013 6:24 AM 013 6:24 (specimen) EST AM EST Leilani Keller MD POINT OF CARE TEST ORDERABLE S Performing Organization Address City/State/ZIP Code Phon e Number [address] CERNER MILLENNIUM POCT Glucose [...] Address City/State/ZIP Code Phon e Number [address] CERNER MILLENNIUM POCT Glucose [...] Address City/State/ZIP Code Phon e Number [address] CERNER MILLENNIUM POCT Glucose [...] Address City/State/[place] [address] CERNER MILLENNIUM POCT Glucose [...] Address City/State/ZIP Code Phon e Number [address] CERNER MILLENNIUM POCT Glucose (08/29/2013 1:02 AM EST) athologist Signature POC Glucose 135 60 - 199 CERNER mg/dL [facility] Comment: Supplemental ranges: <110 mg/dL before meals <200 mg/dL all other times of the day Specimen Anatomical Collection Method Collection Time Receive d Time (Source) Location / / Volume Laterality Blood specimen 08/29/2013 1:02 AM 013 1:02 (specimen) EST AM EST Leilani Keller MD POINT OF CARE TEST ORDERABLE S Performing Organization Address City/[facility]/[place] [address] CERNER MILLENNIUM (ABNORMAL) Differential, Automated (08/29/2013 12:30 AM EST) [facility] gist Method Time Signature Neutrophils % 98.4 [...] Address City/State/[place] [address] CERNER MILLENNIUM Basic Metabolic Panel (non-fasting) (08/29/2013 12:30 AM EST) athologist Signature Glucose Lvl 124 60 - 199 CERNER mg/dL MILLENNIUM Comment: Diabetes: >=200 mg/dL plus symp toms BUN 12 10 - 20 mg/dL CERNER MILLENNIU M Creatinine 0.83 0.80 - 1.50 mg/dL CERNER MILL ENNIUM Comment: Please note that the pediatric reference intervals supplied above were not validated at [facility]. Results from pediatri c [...] Address City/State/[place] [address] CERNER MILLENNIUM (ABNORMAL) CBC [...] City/[facility]/ZIP Code Phon e Number [address] CERNER MILLENNIUM Phosphorus (08/29/2013 [...] City/[facility]/ZIP Code Phon e Number [address] CERNER MILLENNIUM Lipase (08/29/2013 [...] City/[facility]/[place] [address] CERNER MILLENNIUM Amylase (08/29/2013 [...] City/[facility]/ZIP Code Phon e Number [address] CERNER MILLENNIUM Magnesium (08/29/2013 [...] City/[facility]/ZIP Code Phon e Number [address] CERNER MILLENNIUM POCT Glucose (08/29/2013 12:08 AM EST) athologist Signature POC Glucose 139 60 - 199 CERNER mg/dL [facility] Comment: Supplemental ranges: <110 mg/dL before meals <200 mg/dL all other times of the day Specimen Anatomical Collection Method Collection Time Receive d Time (Source) Location / / Volume Laterality Blood specimen 08/29/2013 12:08 3 (specimen) AM EST 12:08 AM EST Leilani Keller MD POINT OF CARE TEST ORDERABLE S Performing Organization Address City/[facility]/ZIP Code Phon e Number [address] CERNER MILLENNIUM POCT Glucose (08/28/2013 11:05 PM EST) athologist Signature POC Glucose 144 60 - 199 CERNER mg/dL [facility] Comment: Supplemental ranges: <110 mg/dL before meals <200 mg/dL all other times of the day Specimen Anatomical Collection Method Collection Time Receive d Time (Source) Location / / Volume Laterality Blood specimen 08/28/2013 11:05 3 (specimen) PM EST 11:05 PM EST Leilani Keller MD POINT OF CARE TEST ORDERABLE S Performing Organization Address City/State/[place] [address] CERNER MILLENNIUM POCT Glucose [...] CARE TEST ORDERABLE S Performing Organization Address City/[facility]/[place] [address] CERNER MILLENNIUM POCT Glucose [...] Address City/State/ZIP Code Phon e Number [address] CERNER MILLENNIUM POCT Glucose [...] CARE TEST ORDERABLE S Performing Organization Address City/[facility]/ZIP Code Phon e Number [address] CERNER MILLENNIUM POCT Glucose [...] CARE TEST ORDERABLE S Performing Organization Address City/[facility]/[place] [address] CERNER MILLENNIUM POCT Glucose [...] CARE TEST ORDERABLE S Performing Organization Address City/[facility]/ZIP Code Phon e Number [address] CERNER MILLENNIUM (ABNORMAL) Differential, Manual (08/28/2013 6:05 PM EST) [facility] gist Method Time Signature Neutrophil % 70 [...] Address City/State/[place] [address] CERNER MILLENNIUM Basic Metabolic Panel (non-fasting) (08/28/2013 6:05 PM EST) athologist Signature Glucose Lvl 166 60 - 199 CERNER mg/dL MILLENNIUM Comment: Diabetes: >=200 mg/dL plus symp toms BUN 12 10 - 20 mg/dL CERNER MILLENNIU M Creatinine 0.89 0.80 - 1.50 mg/dL CERNER MILL ENNIUM Comment: Please note that the pediatric reference intervals supplied above were not validated at [facility]. Results from pediatri c [...] City/State/ZIP Code Phon e Number [place] [phone] CERNER MILLENNIUM (ABNORMAL) CBC [...] City/[facility]/ZIP Code Phon e Number [address] CERNER MILLENNIUM POCT Glucose [...] CARE TEST ORDERABLE S Performing Organization Address City/[facility]/ZIP Code Phon e Number [address] CERNER MILLENNIUM POCT Glucose (08/28/2013 4:13 PM EST) athologist Signature POC Glucose 131 60 - 199 CERNER mg/dL [facility] Comment: Supplemental ranges: <110 mg/dL before meals <200 mg/dL all other times of the day Specimen Anatomical Collection Method Collection Time Receive d Time (Source) Location / / Volume Laterality Blood specimen 08/28/2013 4:13 PM 013 4:13 (specimen) EST PM EST Leilani Keller MD POINT OF CARE TEST ORDERABLE S Performing Organization Address City/[facility]/ZIP Code Phon e Number [address] [facility] MILLEN[facility]UM APTT (08/28/2013 3:50 PM EST) athologist [...] City/[facility]/[place] [address] CERNER MILLENNIUM (ABNORMAL) Prothrombin Time (08/28/2013 3:50 PM EST) P athologist Signature PT 15.7 (H) 12.0 - 15.0 CERNER sec MILLENNIUM Comment: [facility] Transfusion Committee Guidelines: I NR less [...] City/[facility]/[place] [address] CERNER MILLENNIUM POCT Glucose (08/28/2013 2:37 PM EST) P athologist Signature POC Glucose 94 60 - 199 CERNER mg/dL [facility] Comment: Supplemental ranges: <110 mg/dL before meals <200 mg/dL all other times of the day Specimen Anatomical Collection Method Collection Time Receive d Time (Source) Location / / Volume Laterality Blood specimen 08/28/2013 2:37 PM 013 2:37 (specimen) EST PM EST Leilani eKller MD POINT OF CARE TEST ORDERABLE S Performing Organization Address City/[facility]/Z[place] [address] CERNER MILLENNIUM POCT Glucose [...] Address City/State/ZIP Code Phon e Number [address] CERNER MILLENNIUM POCT Glucose [...] CARE TEST ORDERABLE S Performing Organization Address City/[facility]/ZIP Code Phon e Number [address] [facility] MILLENNIUM (ABNORMAL) Differential, Automated (08/28/2013 11:40 AM EST) [facility] gist Method Time Signature Neutrophils % 99.0 [...] City/State/ZIP Code Phon e Number [place] [phone] CERNER MILLENNIUM (ABNORMAL) CBC [...] RDWSD 40.2 35.0 - CERNER 46.0 fL [facility] RDWCV 12.5 10.9 - CERNER 14.4 % [facility] MPV 10.7 9.0 - 12.0 CERNER fL [facility] Specimen Anatomical Collection Method Collection Time Receive d Time (Source) Location / / Volume Laterality Blood specimen 08/28/2013 11:40 3 (specimen) AM EST 11:48 AM EST Resulting Agency Comment Spec In Lab Leilani Keller MD HEMATOLOGY ORDERABLES Performing Organization Address City/State/ZIP Code Phon e Number [address] [facility] APTT (08/28/2013 11:40 AM EST) P athologist Signature PTT 32 25 - 35 sec [facility] Comment: Recommended therapeutic PTT range for fu ll dose unfractionated heparin is 80-114 seconds. Specimen Anatomical Collection Method Collection Time Receive d Time (Source) Location / / Volume Laterality Blood specimen 08/28/2013 11:40 3 (specimen) AM EST 11:48 AM EST Resulting Agency Comment Spec In Lab Leilani Keller MD HEMATOLOGY ORDERABLES Performing Organization Address City/[facility]/ZIP Code Phon e Number [address] [facility] (ABNORMAL) Prothrombin Time (08/28/2013 11:40 AM EST) P athologist Signature PT 16.0 (H) 12.0 - 15.0 [facility] Comment: [facility] Transfusion Committee Guidelines: I NR less than 2.0, PTT less than OR equal to 43.5 seconds, or Fibrinogen gre ater than or equal to 100 mg/dl indicate adequate procoagulant activity for hemostasis in patients without underlying bleeding disorders. INR 1.2 (H) 0.9 - 1.1 [facility] Specimen Anatomical Collection Method Collection Time Receive d Time (Source) Location / / Volume Laterality Blood specimen 08/28/2013 11:40 3 (specimen) AM EST 11:48 AM EST Resulting Agency Comment Spec In Lab Leilani Keller MD HEMATOLOGY ORDERABLES Performing Organization Address City/State/ZIP Code Phon e Number [place] [phone] CERNER MILLENNIUM (ABNORMAL) Comprehensive [...] intervals supplied above were not validated at [facility]. Results from pediatri c [...] City/[facility]/ZIP Code Phon e Number [address] CERNER MILLENNIUM (ABNORMAL) Magnesium [...] ORDERABLES Performing Organization Address City/[facility]/ZIP [facility] Phon e Number [address] CERNER Sample[employer]IUM XR chest PA or AP- 1 view [...] Address City/State/ZIP [place] [address] CERNER MILLENNIUM (ABNORMAL) BLOOD [...] Comment: Total Hemoglobin (in gm/dL) ?Based on [facility] Hematology ran ges: ?Age ?Referen ce Range [...] mmol/L CERNER MILL ENNIUM Comment: Noted by reed or wind instrument tuner. Please note: Patients with WBC >100,000 may [...] Address City/State/ZIP [place] [address] CERNER MILLENNIUM (ABNORMAL) BLOOD [...] Comment: Total Hemoglobin (in gm/dL) ?Based on [facility] Hematology ran ges: ?Age ?Referen ce Range [...] City/State/ZIP Code Phon e Number [place] [phone] CERNER MILLENNIUM (ABNORMAL) BLOOD [...] Comment: Total Hemoglobin (in gm/dL) ?Based on [facility] Hematology ran ges: ?Age ?Referen ce Range [...] mmol/L CERNER MILL ENNIUM Comment: Noted by reed or wind instrument tuner. Please note: Patients with WBC >100,000 may [...] City/[facility]/ZIP Code Phon e Number [place] [phone] CERNER MILLENNIUM Prepare RBC (08/28/2013 8:40 AM EST) P athologist Signature Dispensed? Yes CERNER MILLENNIUM Specimen Anatomical Collection Method Collection Time Receive d Time (Source) Location / / Volume Laterality Blood specimen 08/28/2013 8:40 AM 013 8:38 (specimen) EST AM EST Leilani Keller MD BLOOD BANK ORDERABLES Performing Organization Address City/[facility]/ZIP Code Phon e Number [place] [phone] FARNAZ JUAREZENNIUM (ABNORMAL) BLOOD [...] Comment: Total Hemoglobin (in gm/dL) ?Based on [facility] Hematology ran ges: ?Age ?Referen ce Range [...] City/[facility]/ZIP Code Phon e Number [address] CERNER MILLENNIUM (ABNORMAL) POCT [...] CARE TEST ORDERABLE S Performing Organization Address City/[facility]/ZIP Code Phon e Number [address] CERNER MILLENNIUM POCT Glucose [...] City/State/ZIP Code Phon e Number [place] [phone] CERNER MILLENNIUM Differential, Automated [...] Address City/State/ZIP Code Phon e Number [address] [facility] Varicella zoster Antibody, IgG (08/28/2013 1:34 AM EST) P athologist Signature Varicella IgG Pos [facility] Specimen Anatomical Collection Method Collection Time Receive d Time (Source) Location / / Volume Laterality Blood specimen 08/28/2013 1:34 AM 013 8:31 (specimen) EST AM EST Resulting Agency Comment Spec In Lab Leilani Keller MD IMMUNOLOGY ORDERABLES Performing Organization Address City/[facility]/ZIP Code Phon e Number [address] [facility] Hepatitis C Antibody (08/28/2013 1:34 AM EST) Analysis Performed At Patho logist Time Signature Hepatitis C Ab Negative Negative [facility] Comment: Please note that as [...] Keller MD IMMUNOLOGY ORDERABLES Performing Organization Address City/[facility]/ZIP Code Phon e Number [address] [facility] HIV (08/28/2013 1:34 AM EST) P athologist Signature HIV 1/2 Ab Negative Negative [facility] Specimen Anatomical Collection Method Collection Time Receive d Time (Source) Location / / Volume Laterality Blood specimen 08/28/2013 1:34 AM 013 1:36 (specimen) EST AM EST Resulting Agency Comment Spec In Lab Leilani Keller MD IMMUNOLOGY ORDERABLES Performing Organization Address City/[facility]/[place] [address] [facility] CMV Antibody, IgG (08/28/2013 1:34 AM EST) P athologist Signature CMV IgG Neg Neg CERNER MILLENNIUM Specimen Anatomical Collection Method Collection Time Receive d Time (Source) Location / / Volume Laterality Blood specimen 08/28/2013 1:34 AM 013 8:31 (specimen) EST AM EST Resulting Agency Comment Spec In Lab Leilani Keller MD IMMUNOLOGY ORDERABLES Performing Organization Address City/[facility]/[place] [address] [facility] MILLEN[facility]UM APTT (08/28/2013 1:34 AM EST) P [...] City/[facility]/[place] [address] [facility] MILLENNIUM Prothrombin Time (08/28/2013 1:34 AM EST) P athologist Signature PT 13.5 12.0 - 15.0 CERNER sec MILLENNIUM Comment: [facility] Transfusion Committee Guidelines: I NR less [...] City/[facility]/[place] [address] CERNER MILLENNIUM Phosphorus (08/28/2013 1:34 AM EST) athologist Signature Phosphorus 2.8 2.5 - 4.5 CERNER mg/dL MILLENNIUM Specimen Anatomical Collection Method Collection Time Receive d Time (Source) Location / / Volume Laterality Blood specimen 08/28/2013 1:34 AM 013 1:36 (specimen) EST AM EST Resulting Agency Comment Spec In Lab Leilani Keller MD CHEMISTRY ORDERABLES Performing Organization Address City/[facility] Phon e Number [address] CERNER MILLENNIUM Magnesium (08/28/2013 1:34 AM EST) athologist Signature Magnesium 0.79 0.69 - 1.07 CERNER mmol/L MILLENNIUM Specimen Anatomical Collection Method Collection Time Receive d Time (Source) Location / / Volume Laterality Blood specimen 08/28/2013 1:34 AM 013 1:36 (specimen) EST AM EST Resulting Agency Comment Spec In Lab Leilani Keller MD CHEMISTRY ORDERABLES Performing Organization Address City/[facility] Phon e Number [address] CERNER MILLENNIUM (ABNORMAL) Comprehensive [...] intervals supplied above were not validated at [facility]. Results from pediatri c [...] City/State/ZIP Code Phon e Number [place] [phone] CERNER MILLENNIUM (ABNORMAL) CBC [...] City/[facility]/ZIP Code Phon e Number [address] [facility] Antibody screen (08/28/2013 1:28 AM EST) Analysis Performed At Patho logist Time Signature Ab Screen Negative [facility] [place] Interp MILLENNIUM Expires at [phone] [facility] [place] 2359 on: MILLENNIUM Specimen Anatomical Collection Method Collection Time Receive d Time (Source) Location / / Volume Laterality Blood specimen 08/28/2013 1:28 AM 013 1:33 (specimen) EST AM EST Resulting Agency Comment Spec In Lab Leilani Keller MD BLOOD BANK ORDERABLES Performing Organization Address City/[facility] Phon e Number [address] [facility] MILLENNIUM ABO/Rh Typing (08/28/2013 1:28 AM EST) P athologist Signature ABORh Type O Pos CERNER SampleBoardIUM Specimen Anatomical Collection Method Collection Time Receive d Time (Source) Location / / Volume Laterality Blood specimen 08/28/2013 1:28 AM 013 1:33 (specimen) EST AM EST Resulting Agency Comment Spec In Lab Leilani Keller MD BLOOD BANK ORDERABLES Performing Organization Address City/State/ZIP [place] [address] TipbitNER SampleBoardIUM XR chest routine PA & lateral (08/28/2013 [...] 441 ms MUSE SYSTEM (Bezet) Calculated P [place] 52 degrees MUSE SYSTEM Calculated R [place] 60 degrees MUSE SYSTEM Calculated T [place] 38 degrees MUSE SYSTEM INTERPRETATION Sinus bradycardia [...] 242 (H) 60 - 199 CERNER mg/dL [facility] Comment: Supplemental ranges: <110 mg/dL before meals <200 mg/dL all other times of the day Specimen Anatomical Collection Method Collection Time Receive d Time (Source) Location / / Volume Laterality Blood specimen 08/27/2013 11:35 3 (specimen) PM EST 11:35 PM EST Leilani Keller MD POINT OF CARE TEST ORDERABLE S Performing Organization Address City/State/[place] [address] [facility] documented in this encounter Visit [...] EST 650 mg mg 650 mg, Oral, HIDE SHAKER TO O.R., 1 dose, On 08/27/13 at [...] AM EST 50 mg 50 mg, Intravenous, HIDE SHAKER TO O.R., 1 dose, On 08/27/13 at 2345, 1 dose 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 methylprednisolone sodium succinate (PF) Given 08/30/2013 9:22 A M EST 125 mg (SOLU-MEDROL) injection 125 mg 125 mg, Intravenous, DAILY, 1 dose, First dose on Thu08/30/13 at 0900 mycophenolate (CELLCEPT) capsule 1,000 m g Given 08/28/2013 6:12 AM EST 1,000 mg 1,000 mg, Oral, HIDE SHAKER TO O.R., 1 dose, On 08/27/13 at 2345, dentistry professor to O.R., Routine mycophenolate (CELLCEPT) capsule 750 [...] Sylvain Arboleda RN)2106 (Given - Provider: Julia Tyalor, MIGUELITO) 09 (Given - Provider: Yolie Bearden, [...] Routine documented in this encounter Care Teams Riveting Machine Operator Tape Control Relationship Specialty Start Date End Date Anna Dent MD PCP - General 12/03/10 [address] [place] [address] documented as of this encounter
--- OUTSIDE RECORDS SUMMARY | 2022-04-04 00:52 | XMS_ITS | Encounter Summary ---
:1965 Author Organization [facility] [place] [address] Care Team Providers Name Role Phone Anna Mullen MD Primary Care Provider Encounter Details Date Type Department Care Team Description 08/29/2013 External Results Solid [place] [address] Social History Tobacco Use Types Packs/Day [...] on filedocumented in this encounter Care Teams Chart Calculator Relationship Specialty Start Date End Date Anna Mullen MD PCP - General 12/03/10 [address] [place] [address] documented as of this encounter
--- OUTSIDE RECORDS SUMMARY | 2022-04-04 00:53 | XMS_ITS | Encounter Summary ---
:1965 Author Organization [facility] [place] [address] Care Team Providers Name Role Phone Anna Mullen MD Primary Care Provider Encounter Details Date Type Department Care Team Description 05/12/2013 External Results [place] [address] Social History Tobacco Use Types Packs/Day [...] Procedure Name Priority Date/Time Associated Diagnosis Comme [facility] MONTHLY PRA - PANCREAS Routine 05/06/2013 documented in this encounter Results Transplant: Monthly PRA (Pancreas) - EXTERNAL collections (05/06/2013) Narrative This result has an attachment that is no t available. Historical Provider CHEMISTRY ORDERABLES documented in this encounter Visit Diagnoses Not on filedocumented in this encounter Care Teams Slip Sheeter Relationship Specialty Start Date End Date Anna Mullen MD PCP - General 12/03/10 [address] [place], [place] [address] documented as of this encounter
--- OUTSIDE RECORDS SUMMARY | 2022-04-04 00:53 | XMS_ITS | Encounter Summary ---
:1965 Author Organization [facility] [place] [address] Care Team Providers Name Role Phone Anna Mullen MD Primary Care Provider Reason for Visit Reason Onset Date Comments Medication Refill 04/21/2013 Encounter Details Date Type Department Care Team Description 04/21/2013 Refill Endocrinology at [facility] Divya Hermosillo MD [facility] [place] [address] ENDOCRINOLOGY DEPT. [phone] [place], [place] [address] (Wo rk) Social History Tobacco [...] on filedocumented in this encounter Care Teams Rod Pointer Relationship Specialty Start Date End Date Anna Mullen MD PCP - General 12/03/10 [address] [place], [place] [address] documented as of this encounter
--- OUTSIDE RECORDS SUMMARY | 2022-04-04 00:53 | XMS_ITS | Encounter Summary ---
:1965 Author Organization [facility] Address [facility] [place] [address] Care Team Providers Name Role Phone Anna Mullen MD Primary Care Provider Reason for Visit Reason Comments Diabetes Encounter Details Date Type Department Care Team Description 02/07/2013 Office Visit Endocrinology at [facility] [address], Diabetes type 1, [facility] CDE uncontrolled (Primary Drive [facility] [place] [address] [phone] ENDOCRIN[address]Y DEPT. [place], [place] [address] Social History Tobacco Use Types [...] reviewed Use of the correction factor discussed. [employer] Pro used to download his data. Data [...] uncontrolled documented in this encounter Care Teams Farm General Manager Relationship Specialty Start Date End Date Anna Mullen MD PCP - General 12/03/10 [address] [place] [address] documented as of this encounter
--- OUTSIDE RECORDS SUMMARY | 2022-04-04 00:53 | XMS_ITS | Encounter Summary ---
:1965 Author Organization [facility] [place] [address] Care Team Providers Name Role Phone Anna Mullen MD Primary Care Provider Encounter Details Date Type Department Care Team Description 08/27/2013 Telephone Solid Organ Transplant at Iraj Chappell I, [place] [address] [place] [phone] Social History Tobacco Use Types Packs/Day Years [...] filedocumented in this encounter Care Teams Medical Art Therapist Relationship Specialty Start Date End Date Anna Mullen MD PCP - General 12/03/10 [address] [place] [address] documented as of this encounter
--- OUTSIDE RECORDS SUMMARY | 2022-04-04 00:53 | XMS_ITS | Encounter Summary ---
:1965 Author Organization [facility] [place] [address] Care Team Providers Name Role Phone Anna Mullen MD Primary Care Provider Encounter Details Date Type Department Care Team Description 11/15/2012 Follow-Up [place] [address] Social History Tobacco Use Types Packs/Day [...] on filedocumented in this encounter Care Teams Milk Wagon Driver Relationship Specialty Start Date End Date Anna Mullen MD PCP - General 12/03/10 [address] [place], [place] [address] documented as of this encounter
--- OUTSIDE RECORDS SUMMARY | 2022-04-04 00:53 | XMS_ITS | Encounter Summary ---
:1965 Author Organization [facility] [place] [address] Care Team Providers Name Role Phone Anna Mullen MD Primary Care Provider Encounter Details Date Type Department Care Team Description 11/16/2012 Abstract Solid Organ Transplant at [place], Sonja Adame, [place] [address] Social History Tobacco Use Types Packs/Day [...] on filedocumented in this encounter Care Teams Asset Protection Specialist Relationship Specialty Start Date End Date Anna Mullen MD PCP - General 12/03/10 [address] [place] [address] documented as of this encounter
--- OUTSIDE RECORDS SUMMARY | 2022-04-04 00:53 | XMS_ITS | Encounter Summary ---
:1965 Author Organization [facility] [place] [address] Care Team Providers Name Role Phone Anna Mullen MD Primary Care Provider Encounter Details Date Type Department Care Team Description 06/23/2013 Follow-Up Neurology at [facility] [place] [place] Geoffrey Martinez Cubital tunnel syndrome on r ight; [facility] MD Brigitte [place] [address] NEUROLOGY DEPT. [phone] [place], [place] [address] Social History Tobacco Use Types [...] Disease and Stroke Program [place] [address] t: [phone] / f: [phone] Date of Appointment: 06/23/2013 Patient: Richard Hsu [...] on right about 20 years ago in [place]. Patient Active Problem List Diagnosis Code ??? [...] Diabetic Supplies, Miscellan. Misc Fax form to [facility] for testing supplies 10 times per [id number] each 12 ??? levothyroxine (SYNTHROID) 200 mcg [...] mg by mouth 2 times daily. ??? [facility]-3 Fatty Acids-Vitamin E (FISH OIL) 1,000 mg Cap Take 5,000 mg by mouth daily. ??? Acetone, Urine, Test (ACETONE, URINE, TEST) Strp by [facility].(Non-Drug; Combo Route) route. ??? [...] uncontrolled documented in this encounter Care Teams Manager Of Manufacturing Relationship Specialty Start Date End Date Anna Mullen MD PCP - General 12/03/10 [address] [place] [address] documented as of this encounter
--- OUTSIDE RECORDS SUMMARY | 2022-04-04 00:53 | XMS_ITS | Encounter Summary ---
:1965 Author Organization [facility] Address [facility] [place] [address] Care Team Providers Name Role Phone Anna Mullen MD Primary Care Provider Encounter Details Date Type Department Care Team Description 08/10/2013 Office Visit Neurology at [facility] Matheus Musa MD [facility] [place] [address] Ulnar neuropathy of [facility] CallerDara MD [facility] [place] [address] (Primary Dx) [place] [id number] Social History Tobacco Use Types Packs/Day Years [...] - 08/10/2013 9:45 AM EST NEUROLOGY CLINIC [facility] [place] [address] Facsimile: 08/10/2013 Electrodiagnostic Study Patient: Richard Hsu : 1965 Referring provider: Geoffrey Martinez MD [facility] NEUROLOGY DEPT. [place] [address] Reason for Referral: We are seeing this [...] flexor carpi ulnaris. Assessment and Plan: Richard sHu is a 47 y.o. year old male with right hand paresthesias and atrophy in ulnar distribution. Electrodiagnostic studies are remarkable for fairly [facility]. Plan: ?? Consider orthopedics referral ?? [...] nerve documented in this encounter Care Teams Gas Meter Repair Supervisor Relationship Specialty Start Date End Date Anna Mullen MD PCP - General 12/03/10 [address] [place] [address] documented as of this encounter
--- OUTSIDE RECORDS SUMMARY | 2022-04-04 00:53 | XMS_ITS | Encounter Summary ---
:1965 Author Organization [facility] [place] [address] Care Team Providers Name Role Phone Anna Mullen MD Primary Care Provider Encounter Details Date Type Department Care Team Description 02/07/2013 Office Visit Endocrinology at [facility] Sheila [address], CDE [facility] 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 [address] [place] [address] Social History Tobacco Use Types Packs/Day [...] mg by mouth 2 times daily. ??? [place]-3 Fatty Acids-Vitamin E (FISH OIL) 1,000 mg [...] with hemoglobin A1c and [facility]. documented in this encounter Plan of [...] Organization Address City/State/ZIP Code Phon e Number [place] [phone] CERNER MILLENNIUM (ABNORMAL) Hemoglobin [...] Mellitus, Diabetes Care 2013; 36: Suppl. 1, S67-50 Est Avg Gluc 166 mg/dL CERNER MILLENNIUM [...] into estimated average glucose values. ??Diabetes Care 2008:31(8):3444-9481. Specimen Anatomical Collection Method Collection Time Receive d Time (Source) Location / / Volume Laterality Blood specimen 09/06/2013 9:45 AM 014 9:53 (specimen) EST AM EST Resulting Agency Comment Spec In Lab Divya Coles MD CHEMISTRY ORDERABLES Performing Organization Address City/State/[place] [address] [facility] documented in this encounter Visit Diagnoses Diagnosis Type 1 DM with polyneuropathy - Primary Type I (juvenile type) diabetes mellitus with neurological manifestations, not stated as uncontrolled Hypothyroid Unspecified hypothyroidism documented in this encounter Care Teams Seal Extrusion Operator Relationship Specialty Start Date End Date Anna Mullen MD PCP - General 12/03/10 [address] [place] [address] (work) documented as of this encounter
--- OUTSIDE RECORDS SUMMARY | 2022-04-04 00:53 | XMS_ITS | Encounter Summary ---
:1965 Author Organization [facility] Address [facility] [place] [address] Care Team Providers Name Role Phone Anna Mullen MD Primary Care Provider Encounter Details Date Type Department Care Team Description 01/06/2013 Orders Only Anesthesiology Anibal Owens MD [facility] [address] [place] [address] [address] [phone] [place], [place] [address] (Wo rk) Social History Tobacco [...] Organization Address City/State/ZIP Code Phon e Number [facility] [address] [place] [address] documented in this encounter Visit Diagnoses Not on filedocumented in this encounter Care Teams Outbound Sales Executive Relationship Specialty Start Date End Date Anna Mullen MD PCP - General 12/03/10 [address] [place] [address] documented as of this encounter
--- OUTSIDE RECORDS SUMMARY | 2022-04-04 00:53 | XMS_ITS | Encounter Summary ---
:1965 Author Organization [facility] [place] [address] Care Team Providers Name Role Phone Anna Mullen MD Primary Care Provider Encounter Details Date Type Department Care Team Description 05/19/2013 Hospital Encounter Non-Invasive CLINIC, DR FRYE Pre-tr ansplant Cardiology Lab Eriberto Phillips MD [facility] [place] [address] evaluation for [facility] [place] [address] Social History Tobacco Use Types Packs/Day Years [...] Dx V42.83 Diabetic Supplies, Fax form to [facility] 100 each 09/02/2013 0 [facility]iscellan. [facility] medical for testing 4 supplies 10 times [...] 70 tablet 6 1 mg tablet 20mg [id number]; 3 Then 15mg x7days; Then 10mg x7days; [...] tablet 4 Diabetic Supplies, Fax form to [facility] 100 each 12 04/21/2013 [facility] medical for testing 4 supplies 10 times [...] mouth 0 tablet 2 times daily. 4 [place]-3 Fatty Take 5,000 mg by 0 01/08/201109/06 [...] LEIGH W ? (Age): 1965(47) Med Rec#: ?[id number] ? Sex: ?M ? Site Loc: [place] ? Ht / Wt: ??182.9(cm)/102(k Pt. Loc: ? Echo Lab ? BSA: ?2.28 Study Date: ?05/19/2013 ? Pt. Type: Outpatient Tape: ? Referring: Eriberto Melgar Skating Carhop: Terrence Rubio Diesel Trailer Mechanic: Nicky Olvera Nurse: Lacey Sánchez Diagnosis:CPT Code(s): ??Doppler LTD (93 321), ??ECG Interpretation (33541), ??Definity (09087XC), ??Stress Echo (11391), ??Color Doppler (90210), Indication(s): ??Pre-op cardiovascular e valuation Medication(s): ?? [...] squeezes to accelerate heart rate. ??Pea k IE=109 (67% MPHR despite holding carvedilol), peak BP [...] ?Normal ?Normal ? Mid-Inferoseptal ?Normal ?Normal ? [place]-Septal ? Normal ?Normal ? [place]-Anterior ? Normal ?Normal ? [place]-Lateral ?Normal ?Normal ? [place]-Inferior ? Normal ?Normal ? [place]-Tip ?Normal ?Normal ? [place] ?Value ?Units (Range) [...] 05/19/2013 11:47: 40 Images reviewed and interpretation [facility] Cardiac Ultrasound Laboratory Procedure Note Saleem Edouard MD - 05/19/2013 Procedure: Stress Echocardiogram Patient: VAZQUEZ Guillen (Age): [birth year]) Med Rec#: [id number] Sex: M Site Loc: [facility] Ht / Wt: 182.9(cm)/102(k Pt. Loc: Echo Lab BSA: 2.28 Study Date: 05/19/2013 Pt. Type: Outpati ent Tape: Referring: Eriberto Melgar Skating Carhop: Terrence Rubio Diesel Trailer Mechanic: Nicky Olvera Nurse: Lacey Sánchez Diagnosis:CPT Code(s): Doppler LTD (9332 1), ECG Interpretation (94967), Definity (83304UM), Stress Echo (52121), Color Doppler (31349), Indication(s): Pre-op cardiovascular alyssia luation Medication(s): Rhythm: [...] hand squeezes to accelerate heart rate. Peak VZ=938 (67% MPHR despite holding carvedilol), peak BP [...] Normal Mid-Inferior Normal Normal Mid-Inferoseptal Normal Normal [place]-Septal Normal Normal [place]-Anterior Normal Normal [place]-Lateral Normal Normal [place]-Inferior Normal Normal [place]-Tip Normal Normal Chambers Value Units (Range) LV [...] 11:47:40 Images reviewed and interpretation verif ied [facility] Cardiac Ultrasound Laboratory Eriberto Melgar MD ECHO [...] Routine documented in this encounter Care Teams Fountain Server Relationship Specialty Start Date End Date Anna Mullen MD PCP - General 12/03/10 [address] [place] [address] documented as of this encounter
--- OUTSIDE RECORDS SUMMARY | 2022-04-04 00:53 | XMS_ITS | Encounter Summary ---
:1965 Author Organization [facility] [place] [address] Care Team Providers Name Role Phone Anna Mullen MD Primary Care Provider Reason for Referral Consultation (Routine) - Closed Specialty Diagnoses / Procedures Referred By Contact Refer red To Contact Pain Management Diagnoses LBP radiating to right leg Jesus Diana MD [facility] SP[facility] [address] [address] Fax: Referral ID Status Reason Start Date Expiration Date Visits V isits Requested Authorized [id number] Closed Consult, 12/24/2012 06/22/2013 1 1 Test & Treat Reason for Visit Reason Comments Low Back Pain Right Hip Pain Right Leg Pain with weakness in the leg Encounter Details Date Type Department Care Team Description 12/24/2012 Office Visit [facility] at [facility] Diana, LBP ra diating to right [place] MORENO leg (Primary Dx) [facility] [place] [facility] [address] [place] [address] [phone] Social History Tobacco Use Types Packs/Day Years [...] GI ENDOSCOPY performed by CLAYTON BHAKTA at [facility] ??? Upper gi endoscopy, biopsy 12/31/2011 UPPER GASTROINTESTINAL ENDOSCOPY,WITH BIOPSY SINGLE OR MULTIPLE performed by CLAYTON BHAKTA at [facility] ??? Shoulder surgery ??? Carpal [...] A Partner/Spouse/Family Member? 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 Lives with O/E: 6' (was 6'2 [...] Lumbago documented in this encounter Care Teams Legal Mediator Relationship Specialty Start Date End Date Anna Mullen MD PCP - General 12/03/10 [address] [place] [address] documented as of this encounter
--- OUTSIDE RECORDS SUMMARY | 2022-04-04 00:53 | XMS_ITS | Encounter Summary ---
:1965 Author Organization [facility] [place] [address] Care Team Providers Name Role Phone Anna Mullen MD Primary Care Provider Encounter Details Date Type Department Care Team Description 12/23/2012 Abstract Spine Center at [facility] Mirtha Chaney, TESTING AND [place] [address] Social History Tobacco Use Types Packs/Day [...] on filedocumented in this encounter Care Teams Clin Asst Relationship Specialty Start Date End Date Anna Mullen MD PCP - General 12/03/10 [address] [place], [place] [address] documented as of this encounter
--- OUTSIDE RECORDS SUMMARY | 2022-04-04 00:53 | XMS_ITS | Encounter Summary ---
:1965 Author Organization [place] [address] Care Team Providers Name Role Phone Anna Mullen MD Primary Care Provider Encounter Details Date Type Department Care Team Description 12/23/2012 Hospital Encounter MRI [place] [facility] DR CONV Lumbar pain [facility] Geoffrey Martinez MD [facility] DR NEUROLOGY DEPT. [place] [id number] [place] [address] Social History Tobacco Use Types Packs/Day [...] Dx V42.83 Diabetic Supplies, Fax form to [facility] 100 each 12 09/02/2013 0 [facility]. [facility] for testing 4 supplies 10 times [...] 70 tablet 6 1 mg tablet 20mg [id number]; 3 Then 15mg x7days; Then 10mg x7days; [...] mouth 0 tablet 2 times daily. 4 [place]-3 Fatty Take 5,000 mg by 0 01/08/201109/06 Acids-Vitamin E (FISH mouth daily. 4 OIL) 1,000 mg Cap Acetone, Urine, Test by [facility]Non-Drug; 0 (ACETONE, URINE, TEST) Combo Route) route. [...] th e prior examination. Facet arthropathy causes [id number] ??bilateral fora ella stenosis ?? L5-S1: A [...] th e prior examination. Facet arthropathy causes tbkp-ps-viplirpz bilateral forami nal stenosis L5-S1: A disc [...] Lumbago documented in this encounter Care Teams Hr Business Partner Consultant Relationship Specialty Start Date End Date Anna Mullen MD PCP - General 12/03/10 [address] [place] [address] documented as of this encounter
--- OUTSIDE RECORDS SUMMARY | 2022-04-04 00:53 | XMS_ITS | Encounter Summary ---
:1965 Author Organization [facility] Address [address] [place] [address] Care Team Providers Name Role Phone Anna Mullen MD Primary Care Provider Encounter Details Date Type Department Care Team Description 02/28/2013 Orders Only Solid Organ Divya Dia Pre-euceda splant Transplant at [facility] J, RN evaluation for [facility] pancreas transplant Drive (Primary Dx) [place] [phone] Social History Tobacco Use Types Packs/Day Years [...] VAZQUEZ Guillen ? (Age): 1965(47) Med Rec#: ?[id number] ? Sex: ?M ? Site Loc: ?[facility] ? Ht / Wt: ??182.9(cm)/102(k Pt. Loc: ? Echo Lab ? BSA: ?2 Study Date: ?05/19/2013 ? Pt. Type: Outpatient Tape: ? Referring: Eriberto Melgar Biscuit Packer: Terrence Rubio County Health Officer: Nicky Olvera Nurse: Lacey Sánchez Diagnosis:CPT Code(s): ??Doppler LTD (93 321), ??ECG Interpretation (09512), ??Definity (80590XP), ??Stress Echo (94737), ??Color Doppler (62029), Indication(s): ??Pre-op cardiovascular e valuation Medication(s): ?? [...] squeezes to accelerate heart rate. ??Pea k IF=871 (67% MPHR despite holding carvedilol), peak BP [...] ?Normal ?Normal ? Mid-Inferoseptal ?Normal ?Normal ? [place]-Septal ? Normal ?Normal ? [place]-Anterior ? Normal ?Normal ? [place]-Lateral ?Normal ?Normal ? [place]-Inferior ? Normal ?Normal ? [place]-Tip ?Normal ?Normal ? [place] ?Value ?Units (Range) [...] 40 Images reviewed and interpretation tyson tamayo [facility] Cardiac Ultrasound Laboratory Procedure Note Saleem Edouard MD - 05/19/2013 Procedure: Stress Echocardiogram Patient: VAZQUEZ Guillen (Age): [birth year]) Med Rec#: [id number] Sex: M Site Loc: [facility] Ht / Wt: 182.9(cm)/102(k Pt. Loc: Echo Lab BSA: 2.28 Study Date: 05/19/2013 Pt. Type: Outpati ent Tape: Referring: Eriberto Melgar Biscuit Packer: Terrence Rubio County Health Officer: Nicky Olvera Nurse: Lacey Sánchez Diagnosis:CPT Code(s): Doppler LTD (9332 1), ECG Interpretation (76457), Definity (66380WU), Stress Echo (53955), Color Doppler (12488), Indication(s): Pre-op cardiovascular alyssia luation Medication(s): Rhythm: [...] hand squeezes to accelerate heart rate. Peak YS=419 (67% MPHR despite holding carvedilol), peak BP [...] Normal Mid-Inferior Normal Normal Mid-Inferoseptal Normal Normal [place]-Septal Normal Normal [place]-Anterior Normal Normal [place]-Lateral Normal Normal [place]-Inferior Normal Normal [place]-Tip Normal Normal Chambers Value Units (Range) LV [...] 11:47:40 Images reviewed and interpretation verif ied [facility] Cardiac Ultrasound Laboratory Eriberto Melgar MD ECHO ORDERABLES Performing Organization Address City/State/ZIP Code Phon e Number [facility] documented in this encounter Visit Diagnoses Diagnosis Pre-transplant evaluation for pancreas t ransplant - Primary Other specified pre-operative examinatio n Pre-transplant evaluation for pancreas t ransplant Other specified pre-operative examinatio n documented in this encounter Care Teams Multiple Coil Winder Relationship Specialty Start Date End Date Anna Mullen MD PCP - General 12/03/10 [address] [place] [address] documented as of this encounter
--- OUTSIDE RECORDS SUMMARY | 2022-04-04 00:53 | XMS_ITS | Encounter Summary ---
:1965 Author Organization [facility] [place] [address] Care Team Providers Name Role Phone Anna Mullen MD Primary Care Provider Encounter Details Date Type Department Care Team Description 11/15/2012 Hospital Encounter XRay at [address] [place] [address] Social History Tobacco Use Types Packs/Day [...] Dx V42.83 Diabetic Supplies, Fax form to [facility] 100 each 12 09/02/2013 [facility] for testing 4 supplies 10 times [...] 70 tablet 6 1 mg tablet 20mg [id number]; 3 Then 15mg x7days; Then 10mg x7days; [...] mouth 0 tablet 2 times daily. 4 [place]-3 Fatty Take 5,000 mg by 0 01/08/201109/06 Acids-Vitamin E (FISH mouth daily. 4 OIL) 1,000 mg Cap Acetone, Urine, Test by [facility].(Non-Drug; 0 (ACETONE, URINE, TEST) Combo Route) route. [...] on filedocumented in this encounter Care Teams Area Operations Director Relationship Specialty Start Date End Date Anna Mullen MD PCP - General 12/03/10 [address] [place] [address] documented as of this encounter
--- OUTSIDE RECORDS SUMMARY | 2022-04-04 00:53 | XMS_ITS | Encounter Summary ---
:1965 Author Organization [facility] [place] [address] Care Team Providers Name Role Phone Anna Mullen MD Primary Care Provider Reason for Visit Reason Comments Back Pain Encounter Details Date Type Department Care Team Description 01/06/2013 Procedure visit Pain Management at [facility] Lumb ar radiculopathy [facility] (Primary Dx) [address] [address] [phone] Social History Tobacco Use Types Packs/Day Years [...] 2. 3. Patient states they have a transfer driver to transport after procedure? Yes 4. [...] Richard Wilmer Aracelis has been referred to [facility] for a transforaminal nerve [...] Hsu, and his voiced concerns addressed. ??The [facility] consent form was signed and witnessed. ?? [...] he was discharged from the Pain Management [facility] er. COMMENTS: Patient will follow up with Dr Jadyn rome. Procedure Note Anibal Owens - 01/06/2013 8:48 AM EDTFo rmatting of this note might be different from the original. LUMBAR TRANSFORAMINAL INJECTION Richard Hsu has been referred to [facility] for a transforaminal nerve [...] Routine documented in this encounter Care Teams Aix System Administrator Relationship Specialty Start Date End Date Anna Mullen MD PCP - General 12/03/10 [address] [place] [address] documented as of this encounter
--- OUTSIDE RECORDS SUMMARY | 2022-04-04 00:53 | XMS_ITS | Encounter Summary ---
:1965 Author Organization [facility] [place] [address] Care Team Providers Name Role Phone Anna Mullen MD Primary Care Provider Encounter Details Date Type Department Care Team Description 11/15/2012 Hospital Encounter Non-Invasive Pre-trans plant Cardiology Lab Tiffani dize for CKD [facility] disease) [place] [address] Social History Tobacco Use Types Packs/Day [...] Dx V42.83 Diabetic Supplies, Fax form to [facility] 100 each 09/02/2013 0 [facility]. [facility] [place] medical for testing 4 supplies 10 times [...] 70 tablet 6 1 mg tablet 20mg [id number]; 3 Then 15mg x7days; Then 10mg x7days; [...] mouth 0 tablet 2 times daily. 4 [place]-3 Fatty Take 5,000 mg by 0 01/08/201109/06 Acids-Vitamin E (FISH mouth daily. 4 OIL) 1,000 mg Cap Acetone, Urine, Test by [facility] [place].(Non-Drug; 0 (ACETONE, URINE, TEST) Combo Route) route. [...] 419 ms MUSE SYSTEM (Bezet) Calculated P [place] 48 degrees MUSE SYSTEM Calculated R [place] 72 degrees MUSE SYSTEM Calculated T [place] 57 degrees MUSE SYSTEM INTERPRETATION Sinus bradycardia MUSE SY STEM Otherwise normal ECG When compared with ECG of 11-JUN-2009 10:57, No significant change was found I personally reviewed the tracing and edited the fellows int erpretation Confirmed by fellow Benny MORENO, Meagan ([id number]) on 3 8:58:12 AM Confirmed by [...] n documented in this encounter Care Teams Customer Professional Relationship Specialty Start Date End Date Anna Mullen MD PCP - General 12/03/10 [address] [place] [address] documented as of this encounter
--- OUTSIDE RECORDS SUMMARY | 2022-04-04 00:53 | XMS_ITS | Encounter Summary ---
:1965 Author Organization [facility] [place] [address] Care Team Providers Name Role Phone Anna Mullen MD Primary Care Provider Encounter Details Date Type Department Care Team Description 12/07/2012 Abstract Neurology [place] [facility] Geoffrey Martinez MD [facility] [place] [address] NEUROLOGY DEPT. [phone] [place], [place] [address] (Wo rk) Social History Tobacco [...] on filedocumented in this encounter Care Teams Sand Drier Relationship Specialty Start Date End Date Anna Mullen MD PCP - General 12/03/10 [address] [place], [place] [address] documented as of this encounter
--- OUTSIDE RECORDS SUMMARY | 2022-04-04 00:53 | XMS_ITS | Encounter Summary ---
:1965 Author Organization [facility] [place] [address] Care Team Providers Name Role Phone Anna Mullen MD Primary Care Provider Encounter Details Date Type Department Care Team Description 05/16/2013 Follow-Up [place] [address] Social History Tobacco Use Types Packs/Day [...] on filedocumented in this encounter Care Teams Turkish Rubber Relationship Specialty Start Date End Date Anna Mullen MD PCP - General 12/03/10 [address] [place], [place] [address] documented as of this encounter
--- OUTSIDE RECORDS SUMMARY | 2022-04-04 00:53 | XMS_ITS | Encounter Summary ---
:1965 Author Organization [facility] [place] [address] Care Team Providers Name Role Phone Anna Mullen MD Primary Care Provider Reason for Visit Reason Comments Pancreas Transplant Evaluation Encounter Details Date Type Department Care Team Description 11/15/2012 Office Visit Solid Organ CLINIC, DR FRYE DM (diabetes mellitus) (Primary Dx); Transplant at [facility] Eriberto Melgar MD [facility] [place] [address] Awaiting [place] [id number] Social History Tobacco Use Types Packs/Day Years [...] 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 He has some financial concerns but denied [...] and friends. He also enjoys working on [email or web address] puzzles and doing yard work. Coping Skills: [...] from family and friends. He has a protestant that he is involved with but he [...] Manzano - 11/15/2012 10:47 AM EDT Transplant Tool Liaison Note: Met with patient at RV6 waitlist follow up visit to review medical and pharmacy coverage for transplant services. He continues to be covered by [employer] through his employer and [employer] through his 's employer. He also has [...] no further questions at this time. Primary Coverage:[facility] - patient's employer Secondary:[employer] - Spouse's employer Pharmacy:[facility] [employer] - patient's employer ALL GENERICS ARE $0 Drug Dose/Form # for 30 Days Copay 30 Day Supply PA Required? Mail Order Available Copay 90 Day Supply Prograf 1mg cap 180 caps $40 [place] - [phone] $ Cellcept 250 mg cap 180 caps $40 [place]- [phone] $ Myfortic 360 mg tab 120 tabs [...] EDT Transplant Nephrology Follow Up Reese Shukla [id number] 1965 TRANSPLANT HX: Pt here for continued [...] mg tablet; traMADol (ULTRAM) 50 mg tablet; [place]-3 Fatty Acids-Vitamin E (FISH OIL) 1,000 mg [...] (Bezet) No range found 419 Calculated P Spencer No range found 48 Calculated R Spencer No range found 72 Calculated T Spencer No range found 57 Impression/ Plan Continues [...] AM EDT November 15, 2012 Reese Shukla [id number] TRANSPLANT NUTRITION Annual Wait List Review Reese [...] 1# difference from last encounter with this 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 He has regular exercise; very active. 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 Assessment/Plan: There are no nutritional contraindications noted to proceed with pancreas transplant surgery. Plan communicated to Correspondence Transcriber for Documentation in patient's transplant medical record. [...] AM EDT mellitus) procedure are i n ([facility]/CGP/APD/NLH) the resul ts section. HEPATITIS B SURFACE [...] AND SCREEN Routine 11/15/2012 11:09 DM (diabetes ([facility]/CGP/[facility]) AM EDT mellitus) VARICELLA ZOSTER Routine 11/15/2012 [...] Organization Address City/State/[place] [address] CERNER MILLENNIUM Nucleated Red [...] Melgar MD HEMATOLOGY ORDERABLES Performing Organization Address City/[facility]/ZIP Code Phon e Number [address] CERNER MILLENNIUM Antibody screen (11/15/2012 11:09 AM EDT) Analysis Performed At [facility] logist Time Signature Ab Screen Negative CERNER Interp MILLENNIUM Expires at [id number] CERNER 9 on: MILLENNIUM Specimen Anatomical Collection Method Collection Time Receive d Time (Source) Location / / Volume Laterality Blood specimen 11/15/2012 11:09 3 (specimen) AM EDT 11:19 AM EDT Resulting Agency Comment Spec In Lab Eriberto Melgar MD BLOOD BANK ORDERABLES Performing Organization Address City/[facility]/ZIP Code Phon e Number [address] CERNER MILLENNIUM ABO/Rh Typing [...] Organization Address City/State/[place] [address] CERNER MILLENNIUM (ABNORMAL) HSV [...] Melgar MD IMMUNOLOGY ORDERABLES Performing Organization Address City/[facility]/ZIP Code Phon e Number [address] [facility] Magnesium (11/15/2012 11:09 AM EDT) athologist Signature Magnesium 0.84 0.69 - 1.07 CERNER mmol/L [facility] Specimen Anatomical Collection Method Collection Time Receive d Time (Source) Location / / Volume Laterality Blood specimen 11/15/2012 11:09 3 (specimen) AM EDT 11:27 AM EDT Resulting Agency Comment Spec In Lab Eriberto Melgar MD CHEMISTRY ORDERABLES Performing Organization Address City/[facility]/ZIP Code Phon e Number [address] [facility] ([facility]) Herpesvirus 6 Antibody Panel by IFA (11/15/2012 11:09 AM EDT) Analysis Performed At Patho logist Time Signature Herpes 6 IgG 1:160 (H) [facility] M[facility] Comment: Test Performed by: [facility] [employer]. [address] [place] [address] Herpes 6 IgM <1:20 [facility] Comment: Test Performed by: [facility] [employer]. [address] [place] [address] Herpes 6 Ab Interp PAST INFECTION [facility] Comment: REFERENCE RANGE: ??IgG ??<1:10 ?IgM ??<1:20 [...] perform ance characteristics have been determined by [facility]. It has not been cleared or approved by the U.S. Food and Drug Administration . The FDA has determined that such clearance or ap proval is not necessary. Performance characteristi cs refer to the analytical performance of the charles t. Test Performed by: [facility] [address] [place] [id number] Specimen Anatomical Collection Method Collection Time Receive d Time (Source) Location / / Volume Laterality Blood specimen 11/15/2012 11:09 3 1:12 (specimen) AM EDT PM EDT Resulting Agency Comment Spec In Lab Eriberto Melgar MD IMMUNOLOGY ORDERABLES Performing Organization Address City/State/ZIP Code Phon e Number [place] [id number] [employer] QuantiFERON-TB Gold (11/15/2012 11:09 AM EDT) [facility] Method Time Signature Quantiferon TB Negative Negative CERNER PEMRED Comment: Nil (IU/mL)= 0.07 TB Ag minus [...] Address City/State/ZIP [place] [address] CERNER MILLENNIUM Phosphorus (11/15/2012 11:09 AM EDT) P athologist Signature Phosphorus 3.6 2.5 - 4.5 CERNER mg/dL MILLENNIUM Specimen Anatomical Collection Method Collection Time Receive d Time (Source) Location / / Volume Laterality Blood specimen 11/15/2012 11:09 3 (specimen) AM EDT 11:27 AM EDT Resulting Agency Comment Spec In Lab Eriberto Melgar MD CHEMISTRY ORDERABLES Performing Organization Address City/[facility]/ZIP Code Phon e Number [address] CERNER MILLENNIUM APTT (11/15/2012 [...] Melgar MD HEMATOLOGY ORDERABLES Performing Organization Address [facility] Code Phon e Number [address] CERNER MILLENNIUM Prothrombin Time (11/15/2012 11:09 AM EDT) P athologist Signature PT 13.4 12.0 - 15.0 CERNER sec MILLENNIUM Comment: [facility] Transfusion Committee Guidelines: I NR less than 2.0, PTT less than OR equal to 43.5 seconds, or Fibrinogen gre ater than or equal to 100 mg/dl indicate adequate procoagulant activity for hemostasis in patients without underlying bleeding disorders. INR 1.0 0.9 - 1.1 [facility] Specimen Anatomical Collection Method Collection Time Receive d Time (Source) Location / / Volume Laterality Blood specimen 11/15/2012 11:09 3 (specimen) AM EDT 11:27 AM EDT Resulting Agency Comment Spec In Lab Eriberto Melgar MD HEMATOLOGY ORDERABLES Performing Organization Address City/[facility]/ZIP Code Phon e Number [address] CERNER MILLENNIUM Varicella zoster Antibody, IgG (11/15/2012 11:09 AM EDT) P athologist Signature Varicella IgG Pos CERNER MILLENNIUM Specimen Anatomical Collection Method Collection Time Receive d Time (Source) Location / / Volume Laterality Blood specimen 11/15/2012 11:09 3 8:38 (specimen) AM EDT AM EDT Resulting Agency Comment Spec In Lab Eriberto Melgar MD IMMUNOLOGY ORDERABLES Performing Organization Address City/[facility]/[place] [address] CERNER MILLENNIUM Toxoplasma Antibody, IgG (11/15/2012 11:09 AM EDT) P athologist Signature Toxoplasma IgG Neg Neg CERNER MILLENNIUM Specimen Anatomical Collection Method Collection Time Receive d Time (Source) Location / / Volume Laterality Blood specimen 11/15/2012 11:09 3 8:38 (specimen) AM EDT AM EDT Resulting Agency Comment Spec In Lab Eriberto Melgar MD IMMUNOLOGY ORDERABLES Performing Organization Address City/[facility]/[place] [address] CERNER MILLENNIUM Toxoplasma Antibody, IgM (11/15/2012 11:09 AM EDT) P athologist Signature Toxoplasma IgM Neg Neg CERNER MILLENNIUM Specimen Anatomical Collection Method Collection Time Receive d Time (Source) Location / / Volume Laterality Blood specimen 11/15/2012 11:09 3 8:38 (specimen) AM EDT AM EDT Resulting Agency Comment Spec In Lab Eriberto Melgar MD CHEMISTRY ORDERABLES Performing Organization Address City/[facility]/[place] [address] CERNER MILLENNIUM Syphilis Antibody, IgG (11/15/2012 11:09 AM EDT) P athologist Signature Syphilis IgG Neg Neg CERNER MILLENNIUM Specimen Anatomical Collection Method Collection Time Receive d Time (Source) Location / / Volume Laterality Blood specimen 11/15/2012 11:09 3 8:38 (specimen) AM EDT AM EDT Resulting Agency Comment Spec In Lab Eriberto Melgar MD IMMUNOLOGY ORDERABLES Performing Organization Address City/[facility]/[place] [address] CERNER MILLENNIUM HIV (11/15/2012 11:09 AM EDT) P athologist Signature HIV 1/2 Ab Negative [facility] Specimen Anatomical Collection Method Collection Time Receive d Time (Source) Location / / Volume Laterality Blood specimen 11/15/2012 11:09 3 (specimen) AM EDT 11:27 AM EDT Resulting Agency Comment Spec In Lab Eriberto Melgar MD IMMUNOLOGY ORDERABLES Performing Organization Address City/[facility]/ZIP Code Phon e Number [address] [facility] Hepatitis C Antibody (11/15/2012 11:09 AM EDT) Analysis [facility] At [facility] Time Signature Hepatitis C Ab Negative Negative [facility] Specimen Anatomical Collection Method Collection Time Receive d Time (Source) Location / / Volume Laterality Blood specimen 11/15/2012 11:09 3 (specimen) AM EDT 11:27 AM EDT Resulting Agency Comment Spec In Lab Eriberto Melgar MD IMMUNOLOGY ORDERABLES Performing Organization Address City/[facility]/ZIP Code Phon e Number [address] [facility] Hepatitis B Surface Antibody (11/15/2012 11:09 AM EDT) Analysis Performed At [facility] HepB Surface Negative [facility] Comment: Expected Results: Vaccinated: Positive Unvaccinated: [...] Melgar MD IMMUNOLOGY ORDERABLES Performing Organization Address City/[facility]/ZIP Code Phon e Number [address] [facility] (ABNORMAL) Seth-Springer Virus Antibodies (11/15/2012 11:09 AM [...] Melgar MD IMMUNOLOGY ORDERABLES Performing Organization Address City/[facility]/ZIP Code Phon e Number [address] [facility] Hepatitis B Surface Antigen (11/15/2012 11:09 AM [...] Organization Address City/State/ZIP Code Phon e Number [address] CERNER [facility] CMV Antibody, IgM (11/15/2012 11:09 AM EDT) P athologist Signature CMV IgM Neg Neg CERNER MILLENNIUM Specimen Anatomical Collection Method Collection Time Receive d Time (Source) Location / / Volume Laterality Blood specimen 11/15/2012 11:09 3 8:38 (specimen) AM EDT AM EDT Resulting Agency Comment Spec In Lab Eriberto Melgar MD IMMUNOLOGY ORDERABLES Performing Organization Address City/[facility]/[place] [address] [facility] CMV Antibody, IgG (11/15/2012 11:09 AM EDT) athologist Signature CMV IgG Neg Neg [facility] Specimen Anatomical Collection Method Collection Time Receive d Time (Source) Location / / Volume Laterality Blood specimen 11/15/2012 11:09 3 8:38 (specimen) AM EDT AM EDT Resulting Agency Comment Spec In Lab Eriberto Melgar MD IMMUNOLOGY ORDERABLES Performing Organization Address City/[facility]/ZIP Code Phon e Number [address] [facility] MILLENNIUM (ABNORMAL) CBC (with Diff) (11/15/2012 11:09 [...] Address City/State/ZIP Code [place] [address] CERNER MILLENNIUM Comprehensive metabolic [...] not validated at [facility]. Results from pediatri [...] Address City/State/ZIP [place] [address] CERNER MILLENNIUM Urinalysis without microscopic (11/15/2012 11:03 AM EDT) [facility] Method Time Signature Glucose [...] Appearance UA Clear Clear CERNER MILLENNIUM Spec [place] UA 1.013 1.002 - CERNER 1.030 MILLENNIUM Color UA Yellow Yellow CERNER MILLENNIUM Specimen Anatomical Collection Method Collection Time Receive d Time (Source) Location / / Volume Laterality Urine specimen 11/15/2012 11:03 3 (specimen) AM EDT 11:10 AM EDT Resulting Agency Comment Spec In Lab Eriberto Melgar MD URINE ORDERABLES Performing Organization Address City/State/ZIP Code Phon e Number [address] CERNER MILLENNIUM XR chest [...] status documented in this encounter Care Teams Bull Rider Relationship Specialty Start Date End Date Anna Mullen MD PCP - General 12/03/10 [address] [place] [address] documented as of this encounter
--- OUTSIDE RECORDS SUMMARY | 2022-04-04 00:53 | XMS_ITS | Encounter Summary ---
:1965 Author Organization [facility] Address [address] [place] [address] Care Team Providers Name Role Phone Anna Mullen MD Primary Care Provider Reason for Visit Reason Comments Pancreas Transplant Pre-evaluation Encounter Details Date Type Department Care Team Description 05/16/2013 Office Visit Solid Organ Eriberto Melgar Pre-trans plant Trans[facility] at [facility] MD Arlyn evaluation for [facility] transplant Drive (Primary Dx) [place] [address] [place] [address] [phone] Social History Tobacco Use Types Packs/Day Years [...] PM EST Transplant Follow Up Richard Hsu [id number] 1965 TRANSPLANT HX: Pt here for continued [...] mg tablet; pantoprazole (PROTONIX) 40 mg tablet; [place]-3 Fatty Acids-Vitamin E (FISH OIL) 1,000mg Cap; [...] transplant team today (coordinator, Dr. Melgar & older worker specialist) for her transplant evaluation review, patient is [...] Test: Scheduled for , 05/[address] [facility] Colonoscopy: 2005 Pap: n/a Mammo: n/a Dental: Just had cleaning & dental x-rays done one month ago at [facility]-will send dental form Date of last [...] eye exam. Will fax dental form to [facility]. documented in this encounter Plan of Treatment Not on filedocumented as of this encounter Visit Diagnoses Diagnosis Pre-transplant evaluation for pancreas t ransplant - Primary Other specified pre-operative examinatio n documented in this encounter Care Teams Supervisor [employer] Relationship Specialty Start Date End Date Anna Mullen MD PCP - General 12/03/10 [address] [place] [address] documented as of this encounter
--- OUTSIDE RECORDS SUMMARY | 2022-04-04 00:53 | XMS_ITS | Encounter Summary ---
:1965 Author Organization [place] [address] Care Team Providers Name Role Phone Anna Mullen MD Primary Care Provider Encounter Details Date Type Department Care Team Description 06/06/2013 Abstract Solid Organ Transplant at [place], Sonja Adame, [place] [address] Social History Tobacco Use Types Packs/Day [...] on filedocumented in this encounter Care Teams Wire Machine Operator Relationship Specialty Start Date End Date Anna Mullen MD PCP - General 12/03/10 [address] [place] [address] documented as of this encounter
--- OUTSIDE RECORDS SUMMARY | 2022-04-04 00:53 | XMS_ITS | Encounter Summary ---
:1965 Author Organization [facility] [place] [address] Care Team Providers Name Role Phone Anna Mullen MD Primary Care Provider Encounter Details Date Type Department Care Team Description 08/15/2013 Telephone Orthopaedics at [facility] [place] [address] Social History Tobacco Use Types Packs/Day [...] name: Richard Hsu : 1965 Phone number: [phone] (home) Mailing address: [address] [facility] [address] Intake: RIGHT ULNAR NEUROPATHY AT ELBOW Is [...] filedocumented in this encounter Care Teams Gun Stocker Relationship Specialty Start Date End Date Anna Mullen MD PCP - General 12/03/10 [address] [place] [address] documented as of this encounter
--- OUTSIDE RECORDS SUMMARY | 2022-04-04 00:53 | XMS_ITS | Encounter Summary ---
:1965 Author Organization [place] [address] Care Team Providers Name Role Phone Anna Mullen MD Primary Care Provider Encounter Details Date Type Department Care Team Description 02/07/2013 External Results Solid [place] [address] Social History Tobacco Use Types Packs/Day [...] Procedure Name Priority Date/Time Associated Diagnosis Comme [facility] MONTHLY PRA - PANCREAS Routine 02/03/2013 documented in this encounter Results Transplant: Monthly PRA (Pancreas) - EXTERNAL collections (02/03/2013) Narrative This result has an attachment that is no t available. Historical Provider CHEMISTRY ORDERABLES documented in this encounter Visit Diagnoses Not on filedocumented in this encounter Care Teams Mechanical Laboratory Technician Relationship Specialty Start Date End Date Anna Mullen MD PCP - General 12/03/10 [address] [place], [place] [address] documented as of this encounter
--- OUTSIDE RECORDS SUMMARY | 2022-04-04 00:53 | XMS_ITS | Encounter Summary ---
:1965 Author Organization [facility] [address] Care Team Providers Name Role Phone Anna Mullen MD Primary Care Provider Reason for Referral Surgical (Routine) - Closed Specialty Diagnoses / Procedures Referred By Contact Refer red To Contact Orthopaedics Diagnoses Ulnar neuropathy at elbow, right R ULNAR NEUROPATHY AT [place] Geoffrey Martinez [facility] [address] [facility] [place] [address] [place] [address] Referral ID Status Reason Start Date Expiration Date Visits V isits Requested Authorized [id number] Closed Consult, 08/12/2013 02/08/2014 1 1 Test & Treat Encounter Details Date Type Department Care Team Description 08/12/2013 Orders Only Neurology at [facility] Geoffrey Martinez Ulnar neuropathy at [facility] MD Brigitte elbow, right (Primary Drive [facility] Dx) [place] [address] NEUROLOGY [place]PT. [place] [address] Social History Tobacco Use Types Packs/Day Years Used Date Never Smoker Smokeless Tobacco: Never Used Alcohol Use Standard Drinks/Week Comments No 0 (1 standard drink = 0.6 oz pure alcoho l) history of abuse, stopped 1996 Sex Assigned at Date Recorded Male 05/29/2021 11:28 PM EDT documented as of this encounter Plan of Treatment Scheduled Referrals Name Type Priority Associated Order Schedule Diagnoses Referral to Outpatient Referral Routine Ulnar Neuropathy At O rdered: Orthopaedics Elbow, Right 08/12/2013 documented as of this encounter Visit Diagnoses Diagnosis Ulnar neuropathy at elbow, right - Prima ry documented in this encounter Care Teams Guest Services Attendant Relationship Specialty Start Date End Date Anna Mullen MD PCP - General 12/03/10 [address] [place] [address] documented as of this encounter
--- OUTSIDE RECORDS SUMMARY | 2022-04-04 00:53 | XMS_ITS | Encounter Summary ---
:1965 Author Organization [facility] [place] [address] Care Team Providers Name Role Phone Anna Mullen MD Primary Care Provider Encounter Details Date Type Department Care Team Description 11/15/2012 Orders Only Solid Organ Divya Dia DM (diab etes mellitus) Transplant at [facility] Wendi RN (Primary Dx) [place] [address] Social History Tobacco Use Types [...] City/State/ZIP Code Phon e Number [place] [phone] [facility] [address] CERNER MILLENNIUM Magnesium (11/15/2012 11:09 AM EDT) P athologist Signature Magnesium 0.84 0.69 - 1.07 CERNER mmol/L MILLENNIUM Specimen Anatomical Collection Method Collection Time Receive d Time (Source) Location / / Volume Laterality Blood specimen 11/15/2012 11:09 3 (specimen) AM EDT 11:27 AM EDT Resulting Agency Comment Spec In Lab Eriberto Melgar MD CHEMISTRY ORDERABLES Performing Organization Address City/[facility]/ZIP Code Phon e Number [address] CERNER MILLENNIUM (ABNORMAL) Herpesvirus 6 Antibody Panel by IFA (11/15/2012 11:09 AM EDT) Analysis Performed At Patho logist Time Signature Herpes 6 IgG 1:160 (H) CERNER MILLENNIUM Comment: Test Performed by: [employer]. [address] [place] [phone] Herpes 6 IgM <1:20 CERNER MILLENNIUM Comment: Test Performed by: [employer]. [address] [place] [phone] Herpes 6 Ab Interp PAST INFECTION CERNER [...] perform ance characteristics have been determined by [employer]. It has not been cleared or approved by the U.S. Food and Drug Administration . The FDA has determined that such clearance or ap proval is not necessary. Performance characteristi cs refer to the analytical performance of the charles t. Test Performed by: [employer] [address] [place] [phone] Specimen Anatomical Collection Method Collection Time Receive d Time (Source) Location / / Volume Laterality Blood specimen 11/15/2012 11:09 3 1:12 (specimen) AM EDT PM EDT Resulting Agency Comment Spec In Lab Eriberto Melgar MD IMMUNOLOGY ORDERABLES Performing Organization Address City/State/ZIP Code Phon e Number [place] [phone] Client24 QuantiFERON-TB Gold (11/15/2012 11:09 AM EDT) [facility] Method Time Signature Quantiferon TB Negative [...] Address City/State/ZIP Code Phon e Number [address] CERNER MILLENNIUM Phosphorus (11/15/2012 11:09 AM EDT) P athologist Signature Phosphorus 3.6 2.5 - 4.5 CERNER mg/dL MILLENNIUM Specimen Anatomical Collection Method Collection Time Receive d Time (Source) Location / / Volume Laterality Blood specimen 11/15/2012 11:09 3 (specimen) AM EDT 11:27 AM EDT Resulting Agency Comment Spec In Lab Eriberto Melgar MD CHEMISTRY ORDERABLES Performing Organization Address City/[facility]/ZIP [facility] Phon e Number [address] CERNER MILLENNIUM APTT (11/15/2012 [...] Melgar MD HEMATOLOGY ORDERABLES Performing Organization Address City/[facility]/[place] [address] [facility] MILLENNIUM Prothrombin Time (11/15/2012 11:09 AM EDT) P athologist Signature PT 13.4 12.0 - 15.0 CERNER sec MILLENNIUM Comment: [facility] Transfusion Committee Guidelines: I NR less than 2.0, PTT less than OR equal to 43.5 seconds, or Fibrinogen gre ater than or equal to 100 mg/dl indicate adequate procoagulant activity for hemostasis in patients without underlying bleeding disorders. INR 1.0 0.9 - 1.1 [facility] Specimen Anatomical Collection Method Collection Time Receive d Time (Source) Location / / Volume Laterality Blood specimen 11/15/2012 11:09 3 (specimen) AM EDT 11:27 AM EDT Resulting Agency Comment Spec In Lab Eriberto Melgar MD HEMATOLOGY ORDERABLES Performing Organization Address City/[facility]/ZIP Code Phon e Number [address] [facility] MILLENNIUM Varicella zoster Antibody, IgG (11/15/2012 11:09 AM EDT) P athologist Signature Varicella IgG Pos [facility] Specimen Anatomical Collection Method Collection Time Receive d Time (Source) Location / / Volume Laterality Blood specimen 11/15/2012 11:09 3 8:38 (specimen) AM EDT AM EDT Resulting Agency Comment Spec In Lab Eriberto Melgar MD IMMUNOLOGY ORDERABLES Performing Organization Address City/[facility]/ZIP Code Phon e Number [address] [facility] Toxoplasma Antibody, IgG (11/15/2012 11:09 AM EDT) P athologist Signature Toxoplasma IgG Neg Neg [facility] Specimen Anatomical Collection Method Collection Time Receive d Time (Source) Location / / Volume Laterality Blood specimen 11/15/2012 11:09 3 8:38 (specimen) AM EDT AM EDT Resulting Agency Comment Spec In Lab Eriberto Melgar MD IMMUNOLOGY ORDERABLES Performing Organization Address City/[facility]/[place] [address] [facility] Toxoplasma Antibody, IgM (11/15/2012 11:09 AM EDT) P athologist Signature Toxoplasma IgM Neg Neg [facility] Specimen Anatomical Collection Method Collection Time Receive d Time (Source) Location / / Volume Laterality Blood specimen 11/15/2012 11:09 3 8:38 (specimen) AM EDT AM EDT Resulting Agency Comment Spec In Lab Eriberto Melgar MD CHEMISTRY ORDERABLES Performing Organization Address City/[facility]/ZIP Code Phon e Number [address] [facility] Syphilis Antibody, IgG (11/15/2012 11:09 AM EDT) P athologist Signature Syphilis IgG Neg Neg [facility] Specimen Anatomical Collection Method Collection Time Receive d Time (Source) Location / / Volume Laterality Blood specimen 11/15/2012 11:09 3 8:38 (specimen) AM EDT AM EDT Resulting Agency Comment Spec In Lab Eriberto Melgar MD IMMUNOLOGY ORDERABLES Performing Organization Address City/[facility]/[place] [address] [facility] HIV (11/15/2012 11:09 AM EDT) P athologist Signature HIV 1/2 Ab Negative [facility] Specimen Anatomical Collection Method Collection Time Receive d Time (Source) Location / / Volume Laterality Blood specimen 11/15/2012 11:09 3 (specimen) AM EDT 11:27 AM EDT Resulting Agency Comment Spec In Lab Eriberto Melgar MD IMMUNOLOGY ORDERABLES Performing Organization Address City/[facility]/[place] [address] CERNER MILLENNIUM Hepatitis C Antibody (11/15/2012 11:09 AM EDT) Analysis Performed At [facility] Signature Hepatitis C Ab Negative Negative CERNER MILLENNIUM Specimen Anatomical Collection Method Collection Time Receive d Time (Source) Location / / Volume Laterality Blood specimen 11/15/2012 11:09 201 3 (specimen) AM EDT 11:27 AM EDT Resulting Agency Comment Spec In Lab Eriberto Melgar MD IMMUNOLOGY ORDERABLES Performing Organization Address City/[facility] Phon e Number [address] CERNER MILLENNIUM Hepatitis B Surface Antibody (11/15/2012 11:09 AM EDT) Analysis Performed At [facility] Signature HepB Surface Negative CERNER Ab [...] Melgar MD IMMUNOLOGY ORDERABLES Performing Organization Address City/[facility] Phon e Number [address] CERNER MILLENNIUM (ABNORMAL) Seth-Myers Virus Antibodies (11/15/2012 11:09 AM EDT) [facility] Time Signature EBV (VCA) IgG Pos [...] Melgar MD IMMUNOLOGY ORDERABLES Performing Organization Address City/[facility]/[place] [address] CERNER MILLENNIUM Hepatitis B [...] Melgar MD CHEMISTRY ORDERABLES Performing Organization Address City/[facility]/[place] [address] CERNER MILLENNIUM CMV Antibody, IgM (11/15/2012 11:09 AM EDT) P athologist Signature CMV IgM Neg Neg CERNER MILLENNIUM Specimen Anatomical Collection Method Collection Time Receive d Time (Source) Location / / Volume Laterality Blood specimen 11/15/2012 11:09 3 8:38 (specimen) AM EDT AM EDT Resulting Agency Comment Spec In Lab Eriberto Melgar MD IMMUNOLOGY ORDERABLES Performing Organization Address City/[facility]/ZIP [facility] [place] [address] CERNER MILLENNIUM CMV Antibody, IgG (11/15/2012 11:09 AM EDT) P athologist Signature CMV IgG Neg Neg CERNER MILLENNIUM Specimen Anatomical Collection Method Collection Time Receive d Time (Source) Location / / Volume Laterality Blood specimen 11/15/2012 11:09 3 8:38 (specimen) AM EDT AM EDT Resulting Agency Comment Spec In Lab Eriberto Melgar MD IMMUNOLOGY ORDERABLES Performing Organization Address City/[facility]/[place] [address] CERNER MILLENNIUM (ABNORMAL) CBC [...] City/State/ZIP Code Phon e Number [place] [phone]OS[address]ITAL [address] CERNER MILLENNIUM Comprehensive metabolic panel (non-fasting) (11/15/2012 11:09 AM EDT) athologist Signature Glucose Lvl 159 60 - 199 CERNER mg/dL MILLENNIUM Comment: Diabetes: >=200 mg/dL plus symp toms BUN 13 10 - 20 mg/dL CERNER MILLENNIU M Creatinine 0.85 0.80 - 1.50 mg/dL CERNER MILL ENNIUM Comment: Please note that the pediatric reference intervals supplied above were not validated at [facility]. Results from pediatri c patients [...] Organization Address City/State/[place] [address] CERNER MILLENNIUM Urinalysis without microscopic (11/15/2012 11:03 AM EDT) [facility] Method Time Signature Glucose UA [...] Appearance UA Clear Clear CERNER MILLENNIUM Spec [place] UA 1.013 1.002 - CERNER 1.030 MILLENNIUM Color UA Yellow Yellow CERNER MILLENNIUM Specimen Anatomical Collection Method Collection Time Receive d Time (Source) Location / / Volume Laterality Urine specimen 11/15/2012 11:03 3 (specimen) AM EDT 11:10 AM EDT Resulting Agency Comment Spec In Lab Eriberto Melgar MD URINE ORDERABLES Performing Organization Address City/State/[place] [address] [facility] documented in this encounter Visit Diagnoses Diagnosis DM (diabetes mellitus) - Primary Type II or unspecified type diabetes bria litus without mention of complication, not stated as uncontrolled documented in this encounter Care Teams Pediatric Dermatologist Relationship Specialty Start Date End Date Anna Mullen MD PCP - General 12/03/10 [address] [place] [address] documented as of this encounter
--- OUTSIDE RECORDS SUMMARY | 2022-04-04 00:53 | XMS_ITS | Encounter Summary ---
:1965 Author Organization [facility] [place] [address] Care Team Providers Name Role Phone Anna Mullen MD Primary Care Provider Encounter Details Date Type Department Care Team Description 02/07/2013 Hospital Encounter Laboratory Shaji Zavala, Diabetes mellitus type 1 wit h complications; [facility] Hypothyroid [facility] [phone] ENDOCRINOLOGY [phone] [place] [address] Social History Tobacco Use Types Packs/Day Years [...] Dx V42.83 Diabetic Supplies, Fax form to [facility] 100 each 09/02/2013 0 Miscellan. [facility] testing 4 supplies 10 times [...] 70 tablet 6 1 mg tablet 20mg [id number]; 3 Then 15mg x7days; Then 10mg x7days; [...] 1,000 mg Cap Acetone, Urine, [facility]Non-Drug; 0 (ACETONE, URINE, TEST) Combo Route) route. [...] Organization Address City/State/[place] [address] CERNER MILLENNIUM (ABNORMAL) Hemoglobin A1c (02/07/2013 9:55 AM EDT) Analysis Performed At Patho logist Time Signature Hemoglobin A1C 7.9 (H) 4.3 - 6.1 CERNER % MILLENNIUM Comment: The [place] Diabetes Association (ADA) has stated that HbA1c [...] with hemoglobinopathies. Additional resources are available on [facility] ADA website: ??http://professional.diabetes.org/gluc osecalculator.aspx Edinson GRISSOM, Nathaniel J, Ari R, et al. ??Tr anslating the A1C assay into estimated average glucose values. ??Diabetes Care 2008:31(8):2325-5469. Specimen Anatomical Collection Method Collection Time Receive d Time (Source) Location / / Volume Laterality Blood specimen 02/07/2013 9:55 AM 013 (specimen) EDT 10:00 AM EDT Resulting Agency Comment Spec In Lab Shaji Zavala MD CHEMISTRY ORDERABLES Performing Organization Address City/State/[place] [address] [facility] documented in this encounter Visit Diagnoses Diagnosis Diabetes mellitus type 1 with complicati ons Type I (juvenile type) diabetes mellitus with unspecified complication, not stated as uncontrolled Hypothyroid Unspecified hypothyroidism documented in this encounter Care Teams Outreach Clinician Relationship Specialty Start Date End Date Anna Mullen MD PCP - General 12/03/10 [address] [place] [address] documented as of this encounter
--- OUTSIDE RECORDS SUMMARY | 2022-04-04 00:53 | XMS_ITS | Encounter Summary ---
:1965 Author Organization [facility] [place] [address] Care Team Providers Name Role Phone Anna Mullen MD Primary Care Provider Encounter Details Date Type Department Care Team Description 08/15/2013 Orders Only Orthopaedics at [facility] Leena Nicholson, Pain in right elbow [facility] (Primary Dx) [place] [address] [address] [phone] ORTHOPAEDIC SURGERY [place] [id number] Social History Tobacco Use Types Packs/Day Years [...] arm documented in this encounter Care Teams It Desktop Support Specialist Relationship Specialty Start Date End Date Anna Mullen MD PCP - General 12/03/10 [address] [place] [address] documented as of this encounter
--- OUTSIDE RECORDS SUMMARY | 2022-04-04 00:54 | XMS_ITS | Encounter Summary ---
:1965 Author Organization [facility] [place] [address] Care Team Providers Name Role Phone Anna Mullen MD Primary Care Provider Reason for Visit Reason Comments Patient Education Encounter Details Date Type Department Care Team Description 05/11/2012 Office Visit Endocrinology at [facility] C Sheila Landeros, Diabetes mellitus [facility] CDE (Primary Dx) [place] [address] CENTER [phone] [place] [address] Social History Tobacco Use Types Packs/Day Years [...] at meals. Monitoring and using results 3 [id number] xday bs 37-200's Carelink download of the [...] behavior goal: This patient will see an HYDRAULICS TEACHER to have her write a letter for [...] uncontrolled documented in this encounter Care Teams Airport Security Screener Relationship Specialty Start Date End Date Anna Mullen MD PCP - General 12/03/10 [address] [place] [address] documented as of this encounter
--- OUTSIDE RECORDS SUMMARY | 2022-04-04 00:54 | XMS_ITS | Encounter Summary ---
:1965 Author Organization [facility] [place] [address] Care Team Providers Name Role Phone Anna Mullen MD Primary Care Provider Encounter Details Date Type Department Care Team Description 01/30/2012 Notes Only Solid Organ Transpla nt at [facility] [place] [address] Social History Tobacco Use Types Packs/Day [...] on filedocumented in this encounter Care Teams Brick Extruder Operator Relationship Specialty Start Date End Date Anna Mullen MD PCP - General 12/03/10 [address] [place], [place] [address] documented as of this encounter
--- OUTSIDE RECORDS SUMMARY | 2022-04-04 00:54 | XMS_ITS | Encounter Summary ---
:1965 Author Organization [facility] [place] [address] Care Team Providers Name Role Phone Anna Mullen MD Primary Care Provider Encounter Details Date Type Department Care Team Description 09/27/2012 Orders Only Endocrinology at [facility] Una Dexter INSTALLER HELPER [facility] D [facility] [place] [address] ENDOCRINOLOGY DEPT. [phone] [place], [place] [address] (Wo rk) Social History Tobacco [...] on filedocumented in this encounter Care Teams Cardiac Cath Lab Manager Relationship Specialty Start Date End Date Anna Mullen MD PCP - General 12/03/10 [address] [place], [place] [address] documented as of this encounter
--- OUTSIDE RECORDS SUMMARY | 2022-04-04 00:54 | XMS_ITS | Encounter Summary ---
:1965 Author Organization [facility] [place] [address] Care Team Providers Name Role Phone Anna Mullen MD Primary Care Provider Encounter Details Date Type Department Care Team Description 04/13/2012 Abstract Neurology at [facility] Hillary Duenas, [place] [address] Social History Tobacco Use Types Packs/Day [...] PCP - General 12/03/10 [address] [place], [place] [address] documented as of this encounter
--- OUTSIDE RECORDS SUMMARY | 2022-04-04 00:54 | XMS_ITS | Encounter Summary ---
:1965 Author Organization [facility] Address [address] [place] [address] Care Team Providers Name Role Phone Anna Mullen MD Primary Care Provider Reason for Visit Reason Comments Diabetes Encounter Details Date Type Department Care Team Description 09/14/2012 Office Visit Endocrinology at [facility] Una Dexter Diabetes mellitus type 1 wit h complications (Primary Dx); [facility], COOLING SYSTEM OPERATOR Lower leg pain; Drive [facility] [place] [address] CENTER [phone] [place] [address] Social History Tobacco Use Types Packs/Day Years [...] in this encounter Progress Notes Una Lassiter, COOLING SYSTEM OPERATOR - 09/14/2012 7:47 PM EST DATE [...] trouble getting pump supplies. Telephone call to [facility] medical supply and the patient was informed [...] Performing Organization Address City/State/ZIP [place] [address] CERNER MILLENNIUM (ABNORMAL) Hemoglobin A1c (02/07/2013 9:55 AM EDT) [facility] Time Signature Hemoglobin A1C 7.9 (H) 4.3 - 6.1 CERNER % MILLENNIUM Comment: The [place] Diabetes Association (ADA) has stated that HbA1c [...] into estimated average glucose values. ??Diabetes Care 2008:31(8):1406-4149. Specimen Anatomical Collection Method Collection Time Receive d Time (Source) Location / / Volume Laterality Blood specimen 02/07/2013 9:55 AM 013 (specimen) EDT 10:00 AM EDT Resulting Agency Comment Spec In Lab Shaji Zavala MD CHEMISTRY ORDERABLES Performing Organization Address [facility]/[address] CERNER MILLENNIUM Microalbumin, urine, random (09/14/2012 8:12 AM EST) P athologist Signature U Creatinine 104 mg/dL CERNER MILLENNIUM U Albumin Conc, <3.0 mg/L CERNER Random MILLENNIUM Alb/Cr Ratio, <3 mcg/mg Cr CERNER Random MILLENNIUM Comment: Reference Range* Random collection (mcg/mg creatinine) Normal ?<30 Microalbuminuria ?? 30 - 300 Clinical Albuminuria ?? >300 *[place] Diabetes Association. Diabetic Nephropathy. Diabetes Care 1997;(Suppl [...] Zavala MD URINE ORDERABLES Performing Organization Address [facility] [address] CEREyelationIUM LDL Cholesterol, Direct (09/14/2012 7:53 AM EST) P athologist Signature LDL Chol 73 <=99 mg/dL [facility] Direct [facility] Comment: The National Cholesterol Education Progr am (NCEP) has set the following guidelines for LDL Cholesterol: Reference range: ?? Optimal: ?<100 mg/dL ?? Near Optimal/Above Optimal: ?? 100-1 29 mg/dL ?? Borderline high: ?130-159 mg/dL ?? High: ? 160-189 mg/dL ?? Very high: ?>ln=743 mg/dL MARQUEZ 2001: 285(19):0919-6927 Specimen Anatomical Collection Method Collection Time Receive d Time (Source) Location / / Volume Laterality Blood specimen 09/14/2012 7:53 AM 013 7:57 (specimen) EST AM EST Resulting Agency Comment Spec In Lab Shaji Zavala MD CHEMISTRY ORDERABLES Performing Organization Address City/State/[place] [address] [facility] HDL/Cholesterol Profile (09/14/2012 7:53 AM EST) P athologist Signature Chol, Total 131 <=199 mg/dL [facility] Comment: Recommendations of the NCEP Adult Treatm ent Panel for the following risk cutoff thresholds for the [place] popul[place] n: Desirable: <200 mg/dL Borderline High: 200-239 mg/dL High: > or = 240 mg/dL HDL 52 >=40 mg/dL [facility] Comment: Reference range: ??Low HDL: ?? < 40 mg/dL ??Normal: ?40-60 mg/dL ??Desirable: > 60 mg/dL MARQUEZ 2001; 285(19):0835-7000 Chol/HDL Ratio 2.5 ratio [facility] Comment: A Cholesterol to HDL ratio below 4:1 is desirable. ??Studies suggest that increased CAD risk occurs at ratios abov e 5 for females and above 6 for men. ? [place] Heart Association ??(htt p://www.americanheart.org) ? Joy Int Med, 1994; 121:641 ? AM J Med, 1998; 105(1A):48S Specimen Anatomical Collection Method Collection Time Receive d Time (Source) Location / / Volume Laterality Blood specimen 09/14/2012 7:53 AM 013 7:57 (specimen) EST AM EST Resulting Agency Comment Spec In Lab Shaji Zavala MD CHEMISTRY ORDERABLES Performing Organization Address City/[facility] Phon e Number [address] CERNER MILLENNIUM VIT D [...] Zavala MD CHEMISTRY ORDERABLES Performing Organization Address City/[facility]/ZIP [facility] Phon e Number [address] CERNER DuettoENNIUM (ABNORMAL) TSH (09/14/2012 7:53 AM EST) P [...] Address City/State/Z[place] [address] CERNER MILLENNIUM (ABNORMAL) Hemoglobin [...] into estimated average glucose values. ??Diabetes Care 2008:31(8):0207-8304. Specimen Anatomical Collection Method Collection Time Receive d Time (Source) Location / / Volume Laterality Blood specimen 09/14/2012 7:53 AM 013 7:57 (specimen) EST AM EST Resulting Agency Comment Spec In Lab Shaji Zavala MD CHEMISTRY ORDERABLES Performing Organization Address City/State/[place] [address] CERNER MILLENNIUM (ABNORMAL) Comprehensive [...] Organization Address City/State/ZIP Code Phon e Number [place] [phone]OS[address]ITAL [address] [facility] documented in this encounter Visit Diagnoses Diagnosis Diabetes mellitus type 1 with complicati ons - Primary Type I (juvenile type) diabetes mellitus with unspecified complication, not stated as uncontrolled Lower leg pain Pain in limb Hypothyroid Unspecified hypothyroidism documented in this encounter Care Teams Streaming Media Specialist Relationship Specialty Start Date End Date Anna Mullen MD PCP - General 12/03/10 [address] [place] [address] documented as of this encounter
--- OUTSIDE RECORDS SUMMARY | 2022-04-04 00:54 | XMS_ITS | Encounter Summary ---
:1965 Author Organization [facility] [place] [address] Care Team Providers Name Role Phone Anna Mullen MD Primary Care Provider Encounter Details Date Type Department Care Team Description 05/13/2012 External Results [place] [address] Social History Tobacco Use Types Packs/Day [...] on filedocumented in this encounter Care Teams Van Driver Relationship Specialty Start Date End Date Anna Mullen MD PCP - General 12/03/10 [address] [place] [address] documented as of this encounter
--- OUTSIDE RECORDS SUMMARY | 2022-04-04 00:54 | XMS_ITS | Encounter Summary ---
:1965 Author Organization [facility] [place] [address] Care Team Providers Name Role Phone Anna Mullen MD Primary Care Provider Encounter Details Date Type Department Care Team Description 01/29/2012 Hospital Encounter XRay at [facility], CONV Pancreas disorder [address] [place] [address] Iraj Iniguez MD [facility] [place] [address] [place] [address] Social History Tobacco Use Types [...] 0 10/18/2013 tablet mouth 2 times daily. [place]-3 Fatty Take 5,000 mg by 0 01/08/201109/06 Acids-Vitamin E (FISH OIL) mouth daily. 1,000 mg Cap Acetone, Urine, Test by [facility].(Non-Drug; 0 09/02/2013 (ACETONE, URINE, TEST) Combo Route) [...] pancreas documented in this encounter Care Teams Pvc Monitor Relationship Specialty Start Date End Date Anna Mullen MD PCP - General 12/03/10 [address] [place] [address] documented as of this encounter
--- OUTSIDE RECORDS SUMMARY | 2022-04-04 00:54 | XMS_ITS | Encounter Summary ---
:1965 Author Organization [facility] [place] [address] Care Team Providers Name Role Phone Anna Mullen MD Primary Care Provider Encounter Details Date Type Department Care Team Description 05/12/2012 Notes Only Solid Organ Transplant at [facility] [place] [address] Social History Tobacco Use Types Packs/Day Years Used Date Never Smoker Smokeless Tobacco: Never Used Alcohol Use Standard Drinks/Week Comments No 0 (1 standard drink = 0.6 oz pure alcoho l) history of abuse, stopped 1996 Sex Assigned at Date Recorded Male 05/29/2021 11:28 PM EDT documented as of this encounter Progress Notes Divya Dia RN - 05/13/2012 11:19 AM EDT Patient was discussed at the wait list meeting. He is currently inactive on the pancreas list. He was activated in January but made inactive as he is followed by Dr. Padilla for his headaches. He will RTC once he is cleared by Dr. Padilla or in July for his 6 month follow up with the transplant team. documented in this encounter Plan of Treatment Not on filedocumented as of this encounter Visit Diagnoses Not on filedocumented in this encounter Care Teams Student Ministries Director Relationship Specialty Start Date End Date Anna Mullen MD PCP - General 12/03/10 [address] [place] [address] documented as of this encounter
--- OUTSIDE RECORDS SUMMARY | 2022-04-04 00:54 | XMS_ITS | Encounter Summary ---
:1965 Author Organization [facility] Address [address] [place] [address] Care Team Providers Name Role Phone Anna Mullen MD Primary Care Provider Encounter Details Date Type Department Care Team Description 09/24/2012 Orders Only Solid Organ Divya Dia Pre-euceda splant Transplant at [facility], RN evaluation for CKD [facility] (chronic kidney Drive disease) (Primary Dx) [place] [id number] Social History Tobacco Use Types Packs/Day Years Used Date Never Smoker Smokeless Tobacco: Never Used Alcohol Use Standard Drinks/Week Comments No 0 (1 standard drink = 0.6 oz pure alcoho l) history of abuse, stopped 1996 Sex Assigned at Date Recorded Male 05/29/2021 11:28 PM EDT documented as of this encounter Plan of Treatment Not on filedocumented as of this encounter Results EKG 12 Lead (11/15/2012 8:37 AM EDT) Component Value Ref Range Test Analysis Performed Pathologis t Method Time At Signature Ventricular rate 54 BPM MUSE SYSTEM Atrial Rate 54 BPM MUSE SYSTEM P-R Interval 202 ms MUSE SYSTEM QRS Duration 112 ms MUSE SYSTEM Q-T Interval 442 ms MUSE SYSTEM QTC Calculated 419 ms MUSE SYSTEM (Bezet) Calculated P Oxly 48 degrees MUSE SYSTEM Calculated R Oxly 72 degrees MUSE SYSTEM Calculated T Oxly 57 degrees MUSE SYSTEM INTERPRETATION Sinus bradycardia [...] evaluation for CKD (chron ic kidney disease) - Primary Other specified pre-operative examinatio n documented in this encounter Care Teams Construction Supervisor/Carpenter Relationship Specialty Start Date End Date Anna Mullen MD PCP - General 12/03/10 [address] [place] [address] documented as of this encounter
--- OUTSIDE RECORDS SUMMARY | 2022-04-04 00:54 | XMS_ITS | Encounter Summary ---
:1965 Author Organization [facility] [place] [address] Care Team Providers Name Role Phone Anna Mullen MD Primary Care Provider Encounter Details Date Type Department Care Team Description 03/15/2012 Hospital Encounter Non-Invasive CLINIC, DR FRYE Aortic [place] [address] Social History Tobacco Use Types Packs/Day [...] Dx V42.83 Diabetic Supplies, Fax form to [facility] 100 each 09/02/2013 0 05/10/2014 [facility] [...] 08/29/20 13 08/29/2013 mg tablet daily; 20mg [id number]; Then 15mg x7days; Then 10mg x7days; Then [...] 0 10/18/2013 tablet mouth 2 times daily. [place]-3 Fatty Take 5,000 mg by 0 01/08/201109/06 Acids-Vitamin E (FISH OIL) mouth daily. 1,000 mg Cap Acetone, Urine, Test [place] [facility]Non-Drug; 0 09/02/2013 (ACETONE, URINE, [...] LEIGH W ? (Age): 1965(46) Med Rec#: ?[id number] ? Sex: ?M ? Site Loc: ?[facility] ? Ht / Wt: ??182(cm)/104(kg) Pt. Loc: ? Echo Lab ? BSA: ?2.25 Study Date: ?03/15/2012 ? Pt. Type: Outpatient Tape: ? Referring: Nabeel Araiza ([id number]) Cotton Picker: Omar Aviles ([id number]) Cotton Picker 2: Av Chavarria Cotton Picker 2: Allie Nicholson [facility] Nurse: Ni Anthony Diagnosis: ??Aortic valve disorders (424 .1) CPT Code(s): ??Echo JUN Full (88072), ?? 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 Procedure: Transesophageal Echocardiogra m Patient: VAZQUEZ Guillen (Age): [birth year]) Med Rec#: [id number] Sex: M Site Loc: [facility] Ht / Wt: 182(cm)/104(kg) Pt. Loc: Echo Lab BSA: 2.25 Study Date: 03/15/2012 Pt. Type: Outpati ent Tape: Referring: Nabeel Araiza ([id number]) Cotton Picker: Omar Aviles ([id number]) Cotton Picker 2: Av Chavarria Cotton Picker 2: Allie Nicholson [facility] Nurse: Ni Anthony Diagnosis: Aortic valve disorders (424.1 ) CPT Code(s): Echo JUN Full (79316), [place] r Doppler (81315), Doppler LTD (98276), Indication(s): Myxoma, R/O Rhythm: Sinus HR BP [...] JUN probe was passed by Dr. Aviles. [facility] The cardiac valves appear structurally and functionally [...] :25 Images reviewed and interpretation verif ied [facility] Card[facility] Nabeel Araiza MD ECHO ORDERABLES Performing Organization Address City/State/ZIP Code Phon e Number [facility] documented in this encounter Visit Diagnoses Diagnosis Aortic valve mass Aortic valve disorders documented in this encounter Care Teams Piece Work Checker Relationship Specialty Start Date End Date Anna Mullen MD PCP - General 12/03/10 [address] [place] [address] documented as of this encounter
--- OUTSIDE RECORDS SUMMARY | 2022-04-04 00:54 | XMS_ITS | Encounter Summary ---
:1965 Author Organization [facility] [place] [address] Care Team Providers Name Role Phone Anna Mullen MD Primary Care Provider Reason for Visit Reason Onset Date Comments Other 05/17/2012 Unable to fill test strips script. - denied by insurance Encounter Details Date Type Department Care Team Description 05/17/2012 Telephone Endocrinology at [facility] Una Dexter, Other (Unable to fill One [facility] Unique pham APRN test [place] [address] [facility] denied by insurance) [phone] ENDOCRINOLOGY DEPT. [place], [place] [address] Social History Tobacco Use Types [...] filedocumented in this encounter Care Teams Commercial Real Estate Associate Relationship Specialty Start Date End Date Anna Mullen MD PCP - General 12/03/10 [address] [place] [address] documented as of this encounter
--- OUTSIDE RECORDS SUMMARY | 2022-04-04 00:54 | XMS_ITS | Encounter Summary ---
:1965 Author Organization [facility] [place] [address] Care Team Providers Name Role Phone Anna Mullen MD Primary Care Provider Encounter Details Date Type Department Care Team Description 11/09/2012 External Results [place] [address] Social History Tobacco Use Types Packs/Day [...] Procedure Name Priority Date/Time Associated Diagnosis Comme [facility] MONTHLY PRA - PANCREAS Routine 11/03/2012 documented in this encounter Results Transplant: Monthly PRA (Pancreas) - EXTERNAL collections (11/03/2012) Narrative This result has an attachment that is no t available. Historical Provider CHEMISTRY ORDERABLES documented in this encounter Visit Diagnoses Not on filedocumented in this encounter Care Teams Snuff Packing Machine Operator Relationship Specialty Start Date End Date Anna Mullen MD PCP - General 12/03/10 [address] [place], [place] [address] documented as of this encounter
--- OUTSIDE RECORDS SUMMARY | 2022-04-04 00:54 | XMS_ITS | Encounter Summary ---
:1965 Author Organization [facility] [place] [address] Care Team Providers Name Role Phone Anna Mullen MD Primary Care Provider Encounter Details Date Type Department Care Team Description 02/10/2012 External Results Solid [place] [address] Social History Tobacco Use Types Packs/Day [...] on filedocumented in this encounter Care Teams Support Analyst Relationship Specialty Start Date End Date Anna Mullen MD PCP - General 12/03/10 [address] [place] [address] documented as of this encounter
--- OUTSIDE RECORDS SUMMARY | 2022-04-04 00:54 | XMS_ITS | Encounter Summary ---
:1965 Author Organization [facility] [place] [address] Care Team Providers Name Role Phone Anna Mullen MD Primary Care Provider Encounter Details Date Type Department Care Team Description 03/15/2012 Hospital Encounter Same Day Program at [facility], Goldie Rich MD [facility] [place] [address] [place] [address] [phone] Social History Tobacco Use Types Packs/Day Years [...] Dx V42.83 Diabetic Supplies, Fax form to [facility] 100 each 12 09/02/2013 0 05/10/2014 Miscellan. [facility] medical for testing supplies 10 times per [...] 08/29/20 13 08/29/2013 mg tablet daily; 20mg [id number]; Then 15mg x7days; Then 10mg x7days; Then [...] 0 10/18/2013 tablet mouth 2 times daily. [place]-3 Fatty Take 5,000 mg by 0 01/08/201109/06 Acids-Vitamin E (FISH OIL) mouth daily. 1,000 mg Cap Acetone, Urine, Test by [facility].(Non-Drug; 0 09/02/2013 (ACETONE, URINE, TEST) Combo Route) [...] - 03/15/2012 8:37 AM EDT Richard Hsu [id number] 03/15/2012 46 y.o. Same Day Procedure History [...] on right coronary cusp) on PALLAVI at [facility] last year. He presents for followup [...] his are agreeable NAOMI CHAVARRIA MD Page [phone] documented in this encounter Miscellaneous Notes Miscellaneous [...] 294 (H) 60 - 199 CERNER mg/dL [facility] Comment: Supplemental ranges: <110 mg/dL before meals <200 mg/dL all other times of the day Specimen Anatomical Collection Method Collection Time Receive d Time (Source) Location / / Volume Laterality Blood specimen 03/15/2012 11:23 2 (specimen) AM EDT 11:23 AM EDT Richard Young MD POINT OF CARE TEST ORDERABLE S Performing Organization Address City/State/ZIP Code Phon e Number [place] [phone] CERNER MILLENNIUM (ABNORMAL) POCT [...] Organization Address City/State/[place] [address] CERNER MILLENNIUM (ABNORMAL) POCT GLUCOSE LAB USE ONLY (03/15/2012 8:11 AM EDT) P athologist Signature POC Glucose 286 (H) 60 - 199 CERNER mg/dL [facility] Comment: Supplemental ranges: <110 mg/dL before meals <200 mg/dL all other times of the day Specimen Anatomical Collection Method Collection Time Receive d Time (Source) Location / / Volume Laterality Blood specimen 03/15/2012 8:11 AM 012 8:11 (specimen) EDT AM EDT Richard Young MD POINT OF CARE TEST ORDERABLE S Performing Organization Address City/State/[place] [address] [facility] documented in this encounter Visit Diagnoses Not [...] Routine documented in this encounter Care Teams Legal Office Administrator Relationship Specialty Start Date End Date Anna Mullen MD PCP - General 12/03/10 [address] [place] [address] documented as of this encounter
--- OUTSIDE RECORDS SUMMARY | 2022-04-04 00:54 | XMS_ITS | Encounter Summary ---
:1965 Author Organization [facility] [place] [address] Care Team Providers Name Role Phone Anna Mullen MD Primary Care Provider Encounter Details Date Type Department Care Team Description 05/19/2012 Follow-Up [place] [address] Social History Tobacco Use Types Packs/Day [...] on filedocumented in this encounter Care Teams Rice Drier Operator Relationship Specialty Start Date End Date Anna Mullen MD PCP - General 12/03/10 [address] [place], [place] [address] documented as of this encounter
--- OUTSIDE RECORDS SUMMARY | 2022-04-04 00:54 | XMS_ITS | Encounter Summary ---
:1965 Author Organization [facility] [place] [address] Care Team Providers Name Role Phone Anna Mullen MD Primary Care Provider Reason for Visit Reason Comments Pancreas Transplant Evaluation Diabetes Mellitus Encounter Details Date Type Department Care Team Description 05/19/2012 Office Visit Solid Organ Eriberto Melgar Diabetes mellitus Transplant [place] [facility] [place] (Primary Dx) [facility] [address] [place] [address] [place] [address] [phone] Social History Tobacco Use Types Packs/Day Years [...] EDT documented in this encounter Progress Notes oNra Quiroz MSW - 05/19/2012 11:28 AM EDT [...] seen in 11/09 by [facility] in [place], [place]; pt reports no changes Dental:up to [...] EDT Transplant Nephrology Follow Up Richard Perezjamie [id number] 1965 TRANSPLANT HX: Pt here for evaluation [...] mg by mouth 2 times daily. ??? [place]-3 Fatty Acids-Vitamin E (FISH OIL) 1,000 mg [...] mg suppository 25 MG = 1 Suppository(s), [place], Once daily,PRN Allergies / ADRs: Allergies Allergen [...] due to frequency of hypoglycemic episodes. His CHAIN PERSON issues have been resolved and is well [...] uncontrolled documented in this encounter Care Teams Web Content Editor Relationship Specialty Start Date End Date Anna Mullen MD PCP - General 12/03/10 [address] [place] [address] documented as of this encounter
--- OUTSIDE RECORDS SUMMARY | 2022-04-04 00:54 | XMS_ITS | Encounter Summary ---
:1965 Author Organization [facility] [place] [address] Care Team Providers Name Role Phone Anna Mullen MD Primary Care Provider Encounter Details Date Type Department Care Team Description 05/21/2012 Notes Only Solid Organ Transplant at [facility] [place] [address] Social History Tobacco Use Types Packs/Day [...] on filedocumented in this encounter Care Teams Tip Length Checker Relationship Specialty Start Date End Date Anna Mullen MD PCP - General 12/03/10 [address] [place] [address] documented as of this encounter
--- OUTSIDE RECORDS SUMMARY | 2022-04-04 00:54 | XMS_ITS | Encounter Summary ---
:1965 Author Organization [facility] [address] Care Team Providers Name Role Phone Anna Mullen MD Primary Care Provider Encounter Details Date Type Department Care Team Description 01/29/2012 Notes Only Solid Organ Transpla [place] [facility] [place] [address] Social History Tobacco Use Types Packs/Day Years Used Date Never Smoker Smokeless Tobacco: Never Used Alcohol Use Standard Drinks/Week Comments No 0 (1 standard drink = 0.6 oz pure alcoho l) Sex Assigned at Date Recorded Male 05/29/2021 11:28 PM EDT documented as of this encounter Progress Notes Donna Manzano - 01/30/2012 1:55 PM EDT Transplant Back Hand Note: Met with this patient and his [...] or concerns at this time. Primary Insurance: [employer] through his employment with a [place] school [place] Secondary Plan: [employer] through his 's employment with [facility] Carrier:[employer] (through pt's employment) [...] Prograf 1mg cap 180 caps $40 Yes [phone] $ Cellcept 250 mg cap 180 caps $40 Yes [phone] $ Myfortic 360 mg tab 120 tabs [...] on filedocumented in this encounter Care Teams Fruit Buyer Relationship Specialty Start Date End Date Anna Mullen MD PCP - General 12/03/10 [address] [place] [address] documented as of this encounter
--- OUTSIDE RECORDS SUMMARY | 2022-04-04 00:54 | XMS_ITS | Encounter Summary ---
:1965 Author Organization [facility] Address [address] [place] [address] Care Team Providers Name Role Phone Meaghan Mullen MD Primary Care Provider Reason for Visit Reason Comments Pancreas Transplant Evaluation Encounter Details Date Type Department Care Team Description 01/29/2012 Office Visit Transplant Eriberto Melgar DM type 1 (diabetes mellitus , type 1) (Primary Dx); [facility] MD Arlyn Hypoglycemia associated with diabetes; [facility] CVA (cerebral infarction); [place], [place] Persistent headaches [phone] TRANSPLANT SURGERY [phone] Social History Tobacco Use Types Packs/Day [...] this encounter Progress Notes Nora Quiroz I, CONDUIT INSTALLER - 02/02/2012 8:56 AM EDT Transplant Psychosocial Assessment Date: 01/29/2012 Patient Demographics Patient Name: Richard Hsu Date of : 1965 Patient Address:[address] [place] [address] City/State/Zip: [place], [place] Alternate phone Insurance:[facility] Prescription Policy: Secondary Ins: Prescription co-pay: $0-5 Presenting Problem: Pt presented to clinic with his Tiffani to be evaluated for a pancreas transplant. Past Medical History: Diabetes, pt had a stroke at 11 yo which took 3 years to recover from. Ethnic/Cultural /Spiritual Considerations: Pt belongs to the [employer] in [facility] Family Composition/History: Pt grew up in [place] with his parents and one brother who now lives in [place]. Pt parents and Tiffani's mother live close [...] yo and lives with her mother in [place]). The rest of the children live in [place] but areall adults. The couple have been [...] transplant. The couple also belongs to the [employer] [facility] in [facility] and has a good network of friends which may be able to provide added support throughout the transplant process. They would be willing to request assistance as needed. Home/Transportation: Pt and his own their home and have reliable transportation. They do not see distance as a problem. 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 The district has been supportive of his medical needs and they have a sick bank that employees can donate time so pt hopes he will not go without a paycheck after transplant. 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 Both are clearly able to manage [...] of completing. Will bring a copy for [facility] records if he chooses transplant. Stressors/Coping: Pt denied many stressors except financial. The couple is not falling behind financially but not saving as much as they would like. To cope with challenges, pt finds support from family and friends and he is an avid dampener, building furniture. Assessment: Pt is a 46 [...] complete his advanced directives and file with [facility] prior to transplant. 2. SW to provide emotional support as needed 3. SW to provide community resources as needed. Nora Quiroz LCSW TTT Crys Mckay RD - 01/29/2012 2:09 PM EDT January 29, 2012 TRANSPLANT NUTRITION Initial Transplant Note This television writer met with Richard Hsu a 46 [...] means for contact provided. Plan communicated to Career Services Manager for Documentation in patient's transplant medical record. Remain available for questions/concerns. Te [facility] - 01/29/2012 1:25 PM EDT Encounter Date: [...] Current Medications: Current outpatient prescriptions ordered in [facility] Medication Sig Dispense Refill ??? citalopram (CELEXA) [...] mg by mouth 2 times daily. ??? [place]-3 Fatty Acids-Vitamin E (FISH OIL) 1,000 mg [...] mg suppository 25 MG = 1 Suppository(s), [place], Once daily,PRN Assessment/plan: 1. There are no medication contraindications noted to proceed with transplant surgery. 2. The need for long term care phlebotomist medication and potential adjustment of medications post-transplant was discussed. 3. Patient was provided with handout reviewing post-transplant discharge medication costs. 4. Will remain available for any medication questions. TE RUBIN RPH Karey Hoffman MD - 01/29/2012 10:49 AM EDT Transplant Medicine Consultation Richard Guillen Aracelis [id number] 1965 ID: [id number] y.o. old male seen at the request of Dr. MEAGHAN MULLEN MD and CLAYTON RHOADES MD for evaluation of pancreas transplant. [...] mouth every 6 hours as needed. ??? [place]-3 Fatty Acids-Vitamin E (FISH OIL) 1,000 mg Cap Take 5,000 mg by mouth daily. ??? Acetone, Urine, Test (ACETONE, URINE, TEST) Strp by [facility] [...] mg suppository 25 MG = 1 Suppository(s), [place], Once daily,PRN Allergies / ADRs: Allergies Allergen Reactions ??? Simvastatin ??? Nexium (Esomeprazole Magnesium) Diarrhea Any acid reflux medication causes severe diarrhea Family History: Grand parents had DM No kidney disease or cancer Social History: History Substance Use Topics ??? Smoking status: Never Smoker ??? Smokeless tobacco: Never Used ??? 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 Back exam - full range of motion, [...] of hypoglycemic episodes. That said because his LITIGATION COUNSEL issues have not been resolved I discussed the problems, dexter. Those of the neurologic system associated with Rx. Once his evaluation under the direction of Dr. Martinez is completed we can consider listing and activated him then. Please CC to: MEAGHAN MULLEN MD [address] [place] [address] documented in this encounter Plan of Treatment [...] Headache documented in this encounter Care Teams Grout Worker Relationship Specialty Start Date End Date Meaghan Mullen MD PCP - General 12/03/10 [address] [place], [place] [id number] documented as of this encounter
--- OUTSIDE RECORDS SUMMARY | 2022-04-04 00:54 | XMS_ITS | Encounter Summary ---
:1965 Author Organization [facility] [place] [address] Care Team Providers Name Role Phone Anna Mullen MD Primary Care Provider Encounter Details Date Type Department Care Team Description 02/02/2012 Hospital Encounter Laboratory Shaji Zavala MD Diabetes [facility] [place] [address] ENDOCRINOLOGY DEPT. [phone] [place] [address] (Wo rk) Social History Tobacco Use Types [...] 0 10/18/2013 tablet mouth 2 times daily. [place]-3 Fatty Take 5,000 mg by 0 01/08/201109/06 [...] uncontrolled documented in this encounter Care Teams Commercial Account Manager Relationship Specialty Start Date End Date Anna Mullen MD PCP - General 12/03/10 [address] [place] [address] documented as of this encounter
--- OUTSIDE RECORDS SUMMARY | 2022-04-04 00:54 | XMS_ITS | Encounter Summary ---
:1965 Author Organization [facility] [place] [address] Care Team Providers Name Role Phone Anna Mullen MD Primary Care Provider Reason for Visit Reason Comments Other Encounter Details Date Type Department Care Team Description 11/01/2012 Telephone Endocrinology at [facility] C Kostas Campos, [place] [address] Social History Tobacco Use Types Packs/Day [...] I take it with Mupirocin 2% ointment LONGTERM causethe Mupirocin is not strong enough to [...] Please send script to [facility] in [place], [place] . Let me know when this done so I can pick it up. Thank you Richard Hsu documented in this encounter Plan of Treatment Not on filedocumented as of this encounter Visit Diagnoses Not on filedocumented in this encounter Care Teams Manager Therapy Relationship Specialty Start Date End Date Anna Mullen MD PCP - General 12/03/10 [address] [place] [address] documented as of this encounter
--- OUTSIDE RECORDS SUMMARY | 2022-04-04 00:54 | XMS_ITS | Encounter Summary ---
:1965 Author Organization [facility] [place] [address] Care Team Providers Name Role Phone Anna Mullen MD Primary Care Provider Reason for Visit Reason Onset Date Comments Prior Authorization 05/17/2012 Needing override of quantity of test strips Encounter Details Date Type Department Care Team Description 05/17/2012 Telephone Endocrinology at [facility] C Una Lassiter, Prior Authorization [facility] Unique pham APRN ([place] [address] [facility] quantity of test [phone] eduardo) ENDOCRINOLOGY DEPT. [place], [place] [address] Social History Tobacco Use Types Packs/Day Years Used Date Never Smoker Smokeless Tobacco: Never Used Alcohol Use Standard Drinks/Week Comments No 0 (1 standard drink = 0.6 oz pure alcoho l) history of abuse, stopped 1996 Sex Assigned at Date Recorded Male 05/29/2021 11:28 PM EDT documented as of this encounter Miscellaneous Notes Telephone Encounter - Una Lassiter APRN - 05/18/2012 3:59 PM EDT PHYSICIAN OFFICE ASSISTANT left message on pt's answering machine that PA will not be approved. Advised to buy test strips for the next 2 weeks and will be able to refill the 900 quantity in May. Also, informed of lower cost store brand meters and strips: reli-on from [employer] and [employer] Telephone Encounter - Pamela Ellis RN - 05/17/2012 5:11 PM EDT TC to [employer] - (Health Insurance under pt's spouse Tiffani) - Message left on PA line # [phone] Message left requesting a return call to discuss PA for quantity override of Test Strips. Requesting a return call to Endocrine Department #[phone]. (Provider Una Lassiter APRN) Awaiting returncall. Note: earlier today, calls made to [employer] for this request. Was advised that they are unable to provide an override for quantity. Previously, an override for a total of 900 test strips for a3 month period was done as a one time order. This was done by [facility]. Any further overrides will need to go through them. TC was made to pt to advise him that he received 900 strips on 04/07/2012. Sent by [employer].This was for a 90 day supply, and was written by Dr Grecia Forrester, of [place], [place]. (Per [employer] records.) Pt stated that he did receive that script, but does not have many left. Script not due for refill until May. Information communicated to Una Lassiter APRN via In Basket. Telephone Encounter - Pamela Ellis RN - 05/17/2012 10:57 AM EDT Continued note of 05/17/12. Telephone Encounter - Pamela Ellis RN - 05/17/2012 10:47 AM EDT Prior Auth Request submitted to [employer] - #[phone]. Pt ID #[id number] documented in this encounter Plan of Treatment Not on filedocumented as of this encounter Visit Diagnoses Not on filedocumented in this encounter Care Teams Institution Director Relationship Specialty Start Date End Date Anna Mullen MD PCP - General 12/03/10 [address] [place] [address] documented as of this encounter
--- OUTSIDE RECORDS SUMMARY | 2022-04-04 00:54 | XMS_ITS | Encounter Summary ---
:1965 Author Organization [facility] [place] [address] Care Team Providers Name Role Phone Anna Mullen MD Primary Care Provider Encounter Details Date Type Department Care Team Description 09/27/2012 Office Visit Vascular Surgery at [facility] of right lower leg; [facility] [place], [place] [address] Social History Tobacco Use Types Packs/Day [...] Component Value Ref Test Analysis Performed At [facility] Range Method Time Signature VB Text VASCUBASE Report Department: Vascular Surgery Lab Patient: [id number] (REESE HSU) CPT Code: 93665 ICD-9: 729.5 Referring Physician: MARVA ZAVALA Indication: right leg pain ICD9 Diagnosis Code: 729.5 RIGHT: Patent common femoral vein and popliteal vein with sp ontaneous, respirophasic Doppler wavefo cheri that respond normally to augmentation maneuvers. The common femoral vein, sap henofemoral junction, femoral vein through the thigh and the popliteal vein are fully compressible. Patent labor utilization superintendent ior tibial and peroneal veins with no [...] limb documented in this encounter Care Teams Forming Press Operator Relationship Specialty Start Date End Date Anna Mullen MD PCP - General 12/03/10 [address] [place] [address] documented as of this encounter
--- OUTSIDE RECORDS SUMMARY | 2022-04-04 00:54 | XMS_ITS | Encounter Summary ---
:1965 Author Organization [facility] [address] Care Team Providers Name Role Phone Anna Mullen MD Primary Care Provider Encounter Details Date Type Department Care Team Description 09/15/2012 Orders Only Endocrinology at [facility] Una Dexter, Pain of right lower [facility] [place] [address] [facility] [phone] [facility] DEPT. [place], [place] [address] Social History Tobacco Use Types [...] limb documented in this encounter Care Teams Group Program Manager Relationship Specialty Start Date End Date Anna Mullen MD PCP - General 12/03/10 [address] [place] [address] documented as of this encounter
--- OUTSIDE RECORDS SUMMARY | 2022-04-04 00:54 | XMS_ITS | Encounter Summary ---
:1965 Author Organization [facility] [place] [address] Care Team Providers Name Role Phone Anna Mullen MD Primary Care Provider Encounter Details Date Type Department Care Team Description 01/29/2012 Office Visit Transplant Disorder of pancreas [facility] Unique pham (Primary Dx) [place] [address] Social History Tobacco Use Types Packs/Day [...] pancreas documented in this encounter Care Teams Lithographing Machine Operator Relationship Specialty Start Date End Date Anna Mullen MD PCP - General 12/03/10 [address] [place], [place] [address] documented as of this encounter
--- OUTSIDE RECORDS SUMMARY | 2022-04-04 00:54 | XMS_ITS | Encounter Summary ---
:1965 Author Organization [facility] [place] [address] Care Team Providers Name Role Phone Anna Mullen MD Primary Care Provider Encounter Details Date Type Department Care Team Description 11/02/2012 Telephone Endocrinology at [facility] C Una Lassiter APRN [facility] [place] [address] ENDOCRINOLOGY DEPT. [phone] [place], [place] [address] (Wo rk) Social History [...] Lassiter APRN - 11/02/2012 1:02 PM EST SPLUNK ARCHITECT left message on pt's answering machine mobile # to call Dr Mullen's office for med for herpes outbreak documented in this encounter Plan of Treatment Not on filedocumented as of this encounter Visit Diagnoses Not on filedocumented in this encounter Care Teams Role Player Relationship Specialty Start Date End Date Anna Mullen MD PCP - General 12/03/10 [address] [place] [address] documented as of this encounter
--- OUTSIDE RECORDS SUMMARY | 2022-04-04 00:54 | XMS_ITS | Encounter Summary ---
:1965 Author Organization [facility] [place] [address] Care Team Providers Name Role Phone Anna Mullen MD Primary Care Provider Encounter Details Date Type Department Care Team Description 09/27/2012 Orders Only Vascular Surgery at Una Lassiter, Lucia n, lower leg [facility] WHEELCHAIR RENTAL CLERK (Primary Dx) [facility] [place] [address] ENDOCRINOLOGY [phone] DEPT[address] [place] [id number] Social History Tobacco Use Types Packs/Day Years [...] Component Value Ref Test Analysis Performed At [facility] Range Method Time Signature VB Text VASCUBASE Report Department: Vascular Surgery Lab Patient: [id number] (REESE HSU) CPT Code: 28783 ICD-9: 729.5 Referring Physician: MARVA ZAVALA Indication: right leg pain ICD9 Diagnosis Code: 729.5 RIGHT: Patent common femoral vein and popliteal vein with sp ontaneous, respirophasic Doppler wavefo cheri that respond normally to augmentation maneuvers. The common femoral vein, sap henofemoral junction, femoral vein through the thigh and the popliteal vein are fully compressible. Patent roving technician ior tibial and peroneal veins with no [...] limb documented in this encounter Care Teams Audio Technician Relationship Specialty Start Date End Date Anna Mullen MD PCP - General 12/03/10 [address] [place] [address] documented as of this encounter
--- OUTSIDE RECORDS SUMMARY | 2022-04-04 00:54 | XMS_ITS | Encounter Summary ---
:1965 Author Organization [facility] [place] [address] Care Team Providers Name Role Phone Anna Mullen MD Primary Care Provider Encounter Details Date Type Department Care Team Description 02/02/2012 Hospital Encounter Laboratory Iraj Keller, Pancreas disorder [facility] [place], [place] CENTER [address] TRANSPLANT [phone] SURGERY [place] [address] Social History Tobacco Use Types Packs/Day Years [...] 0 10/18/2013 tablet mouth 2 times daily. [place]-3 Fatty Take 5,000 mg by 0 01/08/201109/06 [...] Miscellaneous Lab request (02/02/2012 10:57 AM EDT) [facility] gist Method Time Signature [facility] Lab Request CERNER Result received in [facility]hub lab. Specimen Anatomical Collection Method Collection Time Receive d Time (Source) Location / / Volume Laterality Specimen of 02/02/2012 10:57 02/02/2012 unknown material AM EDT 11:20 AM ED T (specimen) Iraj Keller MD HEMATOLOGY ORDERABLES Performing Organization Address City/State/[place] [address] [facility] documented in this encounter Visit Diagnoses Diagnosis Pancreas disorder Unspecified disease of pancreas documented in this encounter Care Teams Molder Operator Relationship Specialty Start Date End Date Anna Mullen MD PCP - General 12/03/10 [address] [place] [address] documented as of this encounter
--- OUTSIDE RECORDS SUMMARY | 2022-04-04 00:54 | XMS_ITS | Encounter Summary ---
:1965 Author Organization [facility] [address] Care Team Providers Name Role Phone Anna Mullen MD Primary Care Provider Encounter Details Date Type Department Care Team Description 05/11/2012 Hospital Encounter Laboratory [place], DM type 1 (diabetes [facility] Bruce Parra mellitus, type 1) [place], [place] CENTER [address] ENDOCRINOLOGY [phone] [place] [address] Social History Tobacco Use Types Packs/Day Years [...] V42.83 Diabetic Supplies, Fax form to [facility] 100 each 12 09/02/2013 0 [facility] for testing 4 supplies 10 times [...] 70 tablet 6 1 mg tablet 20mg [id number]; 3 Then 15mg x7days; Then 10mg x7days; [...] mouth 0 tablet 2 times daily. 4 [place]-3 Fatty Take 5,000 mg by 0 01/08/201109/06 Acids-Vitamin E (FISH mouth daily. 4 OIL) 1,000 mg Cap Acetone, Urine, Test by [facility]Non-Drug; 0 (ACETONE, URINE, TEST) Combo Route) route. [...] (05/11/2012 7:42 AM EDT) Analysis Performed At [facility] Time Signature Hemoglobin A1C 7.5 (H) 4.3 - 6.1 CERNER % MILLENNIUM Est Avg Gluc 169 mg/dL [facility] Comment: eAG equivalents for HbA1c percentages: [...] into estimated average glucose values. ??Diabetes Care 2008:31(8):1642-5959. Specimen Anatomical Collection Method Collection Time Receive d Time (Source) Location / / Volume Laterality Blood specimen 05/11/2012 7:42 AM 012 7:45 (specimen) EDT AM EDT Resulting Agency Comment Spec In Lab Divya Coles MD CHEMISTRY ORDERABLES Performing Organization Address City/State/ZIP Code Phon e Number [address] [facility] documented in this encounter Visit Diagnoses Diagnosis DM type 1 (diabetes mellitus, type 1) Type I (juvenile type) diabetes mellitus without mention of complication, not stated as uncontrolled documented in this encounter Care Teams Bale Breaker Operator Relationship Specialty Start Date End Date Anna Mullen MD PCP - General 12/03/10 [address] [place] [address] documented as of this encounter
--- OUTSIDE RECORDS SUMMARY | 2022-04-04 00:54 | XMS_ITS | Encounter Summary ---
:1965 Author Organization [facility] [place] [address] Care Team Providers Name Role Phone Anna Mullen MD Primary Care Provider Reason for Visit Reason Onset Date Comments Medication Refill 05/17/2012 Encounter Details Date Type Department Care Team Description 05/17/2012 Refill Endocrinology at [facility] Una Dexter APRN [facility] [place] [address] ENDOCRINOLOGY DEPT. [phone] [place], [place] [address] (Wo rk) Social History Tobacco [...] Lassiter APRN - 05/27/2012 9:08 AM EDT SANITATION TECHNICIAN called pt 05/27/12 to dicuss recent hospitalization on 05/21 for hyperglycemia. SANITATION TECHNICIAN wanted to check what glucose levels are today and recently. Left message on pt's cell # answering machine to call SANITATION TECHNICIAN if he would like to discuss recent glucose results documented in this encounter Plan of Treatment Not on filedocumented as of this encounter Visit Diagnoses Not on filedocumented in this encounter Care Teams Crusher Loader Operator Relationship Specialty Start Date End Date Anna Mullen MD PCP - General 12/03/[address] [place] [address] documented as of this encounter
--- OUTSIDE RECORDS SUMMARY | 2022-04-04 00:54 | XMS_ITS | Encounter Summary ---
:1965 Author Organization [facility] [place] [address] Care Team Providers Name Role Phone Anna Mullen MD Primary Care Provider Encounter Details Date Type Department Care Team Description 01/30/2012 External Results XRay at [facility] Philippe Vines MD [address] [place] [address] Dr HUSSEIN HANLEY [address] [place] [address] [place] [address] [phone] (Wo rk) Social History Tobacco Use Types [...] on filedocumented in this encounter Care Teams Calciner Feeder Relationship Specialty Start Date End Date Anna Mullen MD PCP - General 12/03/10 [address] [place] [address] documented as of this encounter
--- OUTSIDE RECORDS SUMMARY | 2022-04-04 00:54 | XMS_ITS | Encounter Summary ---
:1965 Author Organization [facility] Address [place] [id number] Care Team Providers Name Role Phone Anna Mullen MD Primary Care Provider Encounter Details Date Type Department Care Team Description 03/15/2012 Surgery Non-Invasive PalacRichard TRANSESOPHA GEGEORGINA Cardiology Lab Tiffani MORENO ECHOCARDIOGRAM (WRVU 2.55) [facility] CARDIOLOGY DE PT. [place] [phone] Social History Tobacco Use Types Packs/Day Years [...] Dx V42.83 Diabetic Supplies, Fax form to [facility] 100 each 12 09/02/2013 0 05/10/2014 Counts Include [facility] medical for testing [...] 08/29/20 13 08/29/2013 mg tablet daily; 20mg [id number]; Then 15mg x7days; Then 10mg x7days; Then [...] 0 10/18/2013 tablet mouth 2 times daily. [place]-3 Fatty Take 5,000 mg by 0 01/08/201109/06 Acids-Vitamin E (FISH OIL) mouth daily. 1,000 mg Cap Acetone, Urine, Test by [facility].(Non-Drug; 0 09/02/2013 (ACETONE, URINE, [...] - 03/15/2012 8:37 AM EDT Richard Hsu [id number] 03/15/2012 46 y.o. Same Day Procedure History [...] on right coronary cusp) on PALLAVI at [facility] last year. He presents for followup PALLAVI [...] his are agreeable NAOMI OLEARY MD Page [phone] documented in this encounter Miscellaneous Notes Miscellaneous [...] Organization Address City/State/[place] [address] CERNER MILLENNIUM (ABNORMAL) POCT [...] Organization Address City/State/[place] [address] CERNER MILLENNIUM (ABNORMAL) POCT GLUCOSE LAB USE ONLY (03/15/2012 8:11 AM EDT) P athologist Signature POC Glucose 286 (H) 60 - 199 CERNER mg/dL Perfect Audience Comment: Supplemental ranges: <110 mg/dL before meals <200 mg/dL all other times of the day Specimen Anatomical Collection Method Collection Time Receive d Time (Source) Location / / Volume Laterality Blood specimen 03/15/2012 8:11 AM 012 8:11 (specimen) EDT AM EDT Richard Young MD POINT OF CARE TEST ORDERABLE S Performing Organization Address City/State/[place] [address] CERNER MILLENNIUM documented in [...] documented in this encounter Care Teams Postal Delivery Officer Relationship Specialty Start Date End Date Anna Mullen MD PCP - General 12/03/10 [address] [place] [address] documented as of this encounter
--- OUTSIDE RECORDS SUMMARY | 2022-04-04 00:54 | XMS_ITS | Encounter Summary ---
:1965 Author Organization [facility] [place] [address] Care Team Providers Name Role Phone Anna Mullen MD Primary Care Provider Reason for Visit Reason Onset Date Comments Other 02/18/2012 Please sign jun orde r Encounter Details Date Type Department Care Team Description 02/18/2012 Telephone Cardiology at [facility] Nabeel Araiza, Other (Please sign jun [facility] order ) [place] [address] CARDI[address] DEPT. [place] [id number] (Wo rk) Social History Tobacco Use Types [...] AM EDT) P athologist Signature EF 60 [employer] SYSTEM Specimen (Source) Anatomical Location Collection Method / Collectio n Time Received Time / Laterality Volume 03/15/2012 Narrative HEARTLAB SYSTEM - 03/15/2012 1:39 PM EDT Procedure: ? Transesophageal Echocardiogram Patient: ? VAZQUEZ REESE W ? (Age): 1965(46) Med Rec#: ?[id number] ? Sex: ?M ? Site Loc: ?[facility] ? Ht / Wt: ??182(cm)/104(kg) Pt. Loc: ? Echo Lab ? BSA: ?2.25 Study Date: ?03/15/2012 ? Pt. Type: Outpatient Tape: ? Referring: Nabeel Araiza ([id number]) Metal Spraying Machine Operator: Omar Aviles ([id number]) Metal Spraying Machine Operator 2: Av Chavarria Metal Spraying Machine Operator 2: Allie Nicholson [facility] Nurse: Ni Anthony Diagnosis: ??Aortic valve disorders (424 .1) CPT Code(s): ??Echo JUN Full (45401), ?? Color Doppler (21427), ??Doppler LTD (73942), Indication(s): ??Myxoma, R/O Rhythm: Sinus HR ?BP [...] 13:38:25 Images reviewed and interpretation verif ied [facility] Cardiac Ultrasound Laboratory Procedure Note Omar Aviles MD - 03/15/2012Formfrankie khalil of this note might be different from the original. Procedure: Transesophageal Echocardiogra m Patient: VAZQUEZ DELA CRUZ(Age): [birth year]) Med Rec#: [id number] Sex: M Site Loc: [facility] Ht / Wt: 182(cm)/104(kg) Pt. Loc: Echo Lab BSA: 2.25 Study Date: 03/15/2012 Pt. Type: Outpati ent Tape: Referring: Nabeel Araiza ([id number]) Metal Spraying Machine Operator: Omar Aviles ([id number]) Metal Spraying Machine Operator 2: Av Chavarria Metal Spraying Machine Operator 2: Allie Nicholson [facility] Nurse: Ni Anthony Diagnosis: Aortic valve disorders (424.1 ) CPT Code(s): Echo JUN Full (62430), Rhodelia r Doppler (23368), Doppler LTD (93877), Indication(s): Myxoma, R/O Rhythm: Sinus HR BP [...] :25 Images reviewed and interpretation verif ied 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
--- OUTSIDE RECORDS SUMMARY | 2022-04-04 00:54 | XMS_ITS | Encounter Summary ---
:1965 Author Organization [facility] [place] [address] Care Team Providers Name Role Phone Anna Mullen MD Primary Care Provider Reason for Visit Reason Comments Follow-up Encounter Details Date Type Department Care Team Description 02/09/2012 Office Visit Endocrinology at [facility] Divya Hermosillo DM type 1 (diabetes [facility] MD Arlyn mellitus, type 1) [facility] (Primary Dx) [place] [address] ENDOCRINOLOGY DEPT. [place], [place] [address] Social History Tobacco Use Types [...] lunch, usually a big sandwich or a hand grinder. Snack in the afternoon, chips. Supper, [...] mg by mouth 2 times daily. ??? [place]-3 Fatty Acids-Vitamin E (FISH OIL) 1,000 mg Cap Take 5,000 mg by mouth daily. ??? Acetone, Urine, Test (ACETONE, URINE, TEST) Strp by [facility]Non-Drug; Combo Route) route. ??? hydrOXYzine (VISTARIL) 25 [...] mg suppository 25 MG = 1 Suppository(s), [place], Once daily,PRN Allergies Allergen Reactions ??? Simvastatin [...] is active. We will have him contact [employer] or a scarrer to learn how to use a temporary [...] (05/11/2012 7:42 AM EDT) Analysis Performed At [facility] Time Signature Hemoglobin A1C 7.5 (H) [...] with hemoglobinopathies. Additional resources are available on [facility] ADA website: ??http://professional.diabetes.org/gluc osecalculator.aspx Reference: Edinson GRISSOM, Nathaniel J, Ari R, et al. ??Tr anslating the A1C assay into estimated average glucose values. ??Diabetes Care 2008:31(8):9131-9631. Specimen Anatomical Collection Method Collection Time Receive d Time (Source) Location / / Volume Laterality Blood specimen 05/11/2012 7:42 AM 012 7:45 (specimen) EDT AM EDT Resulting Agency Comment Spec In Lab Divya Coles MD CHEMISTRY ORDERABLES Performing Organization Address City/State/[place] [address] [facility] documented in this encounter Visit Diagnoses Diagnosis DM type 1 (diabetes mellitus, type 1) - Primary Type I (juvenile type) diabetes mellitus without mention of complication, not stated as uncontrolled documented in this encounter Care Teams Dental Laboratory Technician Apprentice Relationship Specialty Start Date End Date Anna Mullen MD PCP - General 12/03/10 [address] [place] [address] documented as of this encounter
--- OUTSIDE RECORDS SUMMARY | 2022-04-04 00:54 | XMS_ITS | Encounter Summary ---
:1965 Author Organization [facility] [place] [address] Care Team Providers Name Role Phone Anna Mullen MD Primary Care Provider Encounter Details Date Type Department Care Team Description 03/24/2012 Follow-Up Cardiology at [facility] Nabeel Araiza Lightheadedness (Primary [facility] MD Dx) [place] [address] CARDIOLOGY DEPT. [phone] [place], [place] [address] (Wo rk) Social History [...] mg by mouth 2 times daily. ??? [place]-3 Fatty Acids-Vitamin E (FISH OIL) 1,000 mg [...] mg suppository 25 MG = 1 Suppository(s), [place], Once daily,PRN ??? DISCONTD: Magnesium Oxide 250 mg Tab Take by mouth 2 times daily. HPI: Richard returns to the cardiology clinic with his mother to review results of the recent PALLAVI. He initially came to our office with concerns about a possible mass on his aortic valve. I reviewed a copy of his PALLAVI from [place] at our monthly inter-departmental valve conference and the majority of the audience members thought that this was likely mild focal thickening of the aortic valve with some off-axis views. To be certain, we obtained our own study as follows: PALLAVI at [facility] (February 2012): 1. Left ventricular chamber size, [...] the images on the recent PALLAVI from [facility] and the prior study in [place]. I reviewed some of these images with [...] a CD that has the PALLAVI from [facility] and from [place]. I would be happy to see him [...] giddiness documented in this encounter Care Teams Motorcycle Sales Associate Relationship Specialty Start Date End Date Anna Mullen MD PCP - General 12/03/10 [address] [place] [address] documented as of this encounter
--- OUTSIDE RECORDS SUMMARY | 2022-04-04 00:54 | XMS_ITS | Encounter Summary ---
:1965 Author Organization [facility] [address] Care Team Providers Name Role Phone Anna Mullen MD Primary Care Provider Reason for Visit Reason Comments Diabetes Encounter Details Date Type Department Care Team Description 05/11/2012 Office Visit Endocrinology at [facility] Una Dexter Diabetes mellitus type [facility] E, TORCH STRAIGHTENER [address] [facility] (Primary Dx) [place] [address] CENTER [phone] [place] [address] Social History Tobacco Use Types Packs/Day Years [...] for shoe fitting, across the street from [employer] Consider Dexcom sensor study to see if [...] he has been having a burrito at [employer]. Lunch is a sandwich. Dinner was pasta, [...] 30 - 300 Clinical Albuminuria ?? >300 *[place] Diabetes Association. Diabetic Nephropathy. Diabetes Care 1997;(Suppl [...] Organization Address City/State/[place] [address] CERNER MILLENNIUM LDL Cholesterol, [...] High: ? 160-189 mg/dL ?? Very high: ?>vx=723 mg/dL MARQUEZ 2001: 285(19):2967-9894 Specimen Anatomical Collection Method Collection Time Receive d Time (Source) Location / / Volume Laterality Blood specimen 09/14/2012 7:53 AM 013 7:57 (specimen) EST AM EST Resulting Agency Comment Spec In Lab Shaji Zavala MD CHEMISTRY ORDERABLES Performing Organization Address [facility]/State/[place] [address] FARNAZ [facility] HDL/Cholesterol Profile (09/14/2012 7:53 AM EST) P athologist Signature Chol, Total 131 <=199 mg/dL CERNER [facility] Comment: Recommendations of the NCEP Adult Treatm ent Panel for the following risk cutoff thresholds for the [place] populatio n: Desirable: <200 mg/dL Borderline High: 200-239 mg/dL High: > or = 240 mg/dL HDL 52 >=40 mg/dL [facility]UM Comment: Reference range: ??Low HDL: ?? < 40 mg/dL ??Normal: ?40-60 mg/dL ??Desirable: > 60 mg/dL MARQUEZ 2001; 285(19):4058-8018 Chol/HDL Ratio 2.5 ratio [facility] Comment: A Cholesterol to HDL ratio below 4:1 is desirable. ??Studies suggest that increased CAD risk occurs at ratios abov e 5 for females and above 6 for men. ? [place] Heart Association ??(htt p://www.americanheart.org) ? Joy Int Med, 1994; 121:641 ? AM J Med, 1998; 105(1A):48S Specimen Anatomical Collection Method Collection Time Receive d Time (Source) Location / / Volume Laterality Blood specimen 09/14/2012 7:53 AM 013 7:57 (specimen) EST AM EST Resulting Agency Comment Spec In Lab Shaji Zavala MD CHEMISTRY ORDERABLES Performing Organization Address City/State/[place] [address] [facility]ILL[facility]ENTER[facility] VIT D Total Evaluation (09/14/2012 7:53 AM [...] Zavala MD CHEMISTRY ORDERABLES Performing Organization Address City/[facility]/[place] [address] [facility] (ABNORMAL) TSH (09/14/2012 7:53 AM EST) P athologist Signature TSH 4.64 (H) 0.27 - 4.20 CERNER mcIU/mL MILLENNIUM Specimen Anatomical Collection Method Collection Time Receive d Time (Source) Location / / Volume Laterality Blood specimen 09/14/2012 7:53 AM 013 7:57 (specimen) EST AM EST Resulting Agency Comment Spec In Lab Shaji Zavala MD CHEMISTRY ORDERABLES Performing Organization Address City/State/[place] [address] [facility] (ABNORMAL) Hemoglobin A1c (09/14/2012 7:53 AM EST) Analysis Performed At [facility] Time Signature Hemoglobin A1C 7.6 (H) 4.3 - 6.1 [facility] Est Avg Gluc 171 mg/dL [facility] Comment: eAG equivalents for HbA1c percentages: HbA1c(%) ?eAG(mg/dL) 6.0 ?126 6.5 ?140 7.0 ?154 7.5 ?169 8.0 ?183 8.5 ?197 9.0 ?212 9.5 ?226 10.0 ? 240 Limitations: The eAG calculation has not been validated on women, individuals below 18 years old and above 70 years old, and individuals with hemoglobinopathies. Additional resources are available on [facility] ADA website: ??http://professional.diabetes.org/gluc osecalculator.aspx Reference: Edinson GRISSOM, Nathaniel J, Ari R, et al. ??Tr anslating the A1C assay into estimated average glucose values. ??Diabetes Care 2008:31(8):8402-4212. Specimen Anatomical Collection Method Collection Time Receive d Time (Source) Location / / Volume Laterality Blood specimen 09/14/2012 7:53 AM 013 7:57 (specimen) EST AM EST Resulting Agency Comment Spec In Lab Shaji Zavala MD CHEMISTRY ORDERABLES Performing Organization Address City/State/[place] [address] [facility] (ABNORMAL) Comprehensive metabolic panel (non-fasting) (09/14/2012 7:53 AM EST) P athologist Signature Glucose Lvl 185 60 - 199 CERNER mg/dL MILLENNIUM Comment: Diabetes: >=200 mg/dL plus symp toms BUN 9 (L) 10 - 20 mg/dL CERNER MILLENNIU M Creatinine 1.01 0.80 - 1.50 mg/dL CERNER MILL ENNIUM Comment: Please note that the pediatric reference intervals supplied above were not validated at [facility]. Results from pediatri c patients [...] Address City/State/[place] [address] [facility] documented in this encounter Visit Diagnoses Diagnosis Diabetes mellitus type 1 with complicati ons - Primary Type I (juvenile type) diabetes mellitus with unspecified complication, not stated as uncontrolled documented in this encounter Care Teams Customs Entry Clerk Relationship Specialty Start Date End Date Anna Mullen MD PCP - General 12/03/10 [address] [place] [address] documented as of this encounter
--- OUTSIDE RECORDS SUMMARY | 2022-04-04 00:54 | XMS_ITS | Encounter Summary ---
:1965 Author Organization [facility] Address [facility] [place] [address] Care Team Providers Name Role Phone Anna Mullen MD Primary Care Provider Reason for Visit Reason Comments Pancreas Transplant Evaluation Encounter Details Date Type Department Care Team Description 01/29/2012 Office Visit Transplant Leilani Keller, IDDM (insulin [facility] MD dependent diabetes Drive [facility] mellitus) (Primary Dx) [place] [address] TRANSPLANT SURGERY [phone] [place], [place] [address] Social History Tobacco Use Types [...] GI ENDOSCOPY performed by CLAYTON BHAKTA at [facility] ENDOSCOPY ??? Upper gi endoscopy, biopsy 12/31/2011 UPPER GASTROINTESTINAL ENDOSCOPY,WITH BIOPSY SINGLE OR MULTIPLE performed by CLAYTON BHAKTA at [facility] ENDOSCOPY ??? Shoulder surgery ??? [...] mg by mouth 2 times daily. ??? [place]-3 Fatty Acids-Vitamin E (FISH OIL) 1,000 mg Cap Take 5,000 mg by mouth daily. ??? Acetone, Urine, Test (ACETONE, URINE, TEST) Strp by [facility].(Non-Drug; Combo Route) route. ??? hydrOXYzine (VISTARIL) 25 [...] mg suppository 25 MG = 1 Suppository(s), [place], Once daily,PRN Labs: Lab Results Component Value [...] sent to meet with our transplant financial internship to discuss the financial impact of transplantation.Patient also seen by Transplant social workerand apartment coordinator documented in this encounter Plan of Treatment Not on filedocumented as of this encounter Visit Diagnoses Diagnosis IDDM (insulin dependent diabetes mellitu s) - Primary Type II or unspecified type diabetes bria litus without mention of complication, not stated as uncontrolled documented in this encounter Care Teams Forming Acid Dumper Relationship Specialty Start Date End Date Anna Mullen MD PCP - General 12/03/10 [address] [place] [address] documented as of this encounter
--- OUTSIDE RECORDS SUMMARY | 2022-04-04 00:55 | XMS_ITS | Encounter Summary ---
:1965 Author Organization [facility] [place] [address] Care Team Providers Name Role Phone Anna Mullen MD Primary Care Provider Encounter Details Date Type Department Care Team Description 07/21/2011 Hospital Encounter Same Day Program at DueñasRaghav Lazaro MD [facility] [place] [address] LBP radiating to Jameel Camacho MD [facility] [address] [place] [address] Social History Tobacco Use Types Packs/Day Years [...] by your doctor, do not take any ipxz-kvt-nbpuciu medicines orherbal preparations without first discussing this with your doctor or pharmacist. There is the possibility of side effect and interactions when these are combined. Follow up Care Who to Call with Questions or Problems If there are any questions or problems that you think might be related to your cardiac cath or angioplasty, contact the bevel face stoner and polisher international guest coordinator by calling [facility] at [phone]. 1. You may have received medication before [...] 0 10/18/2013 tablet mouth 2 times daily. [place]-3 Fatty Take 5,000 mg by 0 01/08/201109/06 [...] Pre-Procedural H&P Patient Name: Richard Hsu : [id number] y.o. MR#: [id number] Chief Complaint: Chest Pain Planned Procedure: LHC [...] test in patient with DM,HTN. Proceed with [facility] as planned. FROY HAMPTON MD 07/21/2011 documented [...] Glucose 137 60 - 199 CERNER mg/dL [facility] Comment: Supplemental ranges: <110 mg/dL before meals <200 mg/dL all other times of the day Specimen Anatomical Collection Method Collection Time Receive d Time (Source) Location / / Volume Laterality Blood specimen 07/21/2011 10:24 1 (specimen) AM EST 10:24 AM EST Raghav Dueñas MD POINT OF CARE TEST ORDERABLE S Performing Organization Address City/State/ZIP Code Phon e Number [address] CERNER MILLENNIUM POCT GLUCOSE [...] Address City/State/ZIP Code Phon e Number [address] CERNER MILLENNIUM POCT GLUCOSE [...] Address City/State/ZIP Code Phon e Number [address] CERNER MILLENNIUM documented in [...] - Comment: Rate decreased on arrival in laboratory equipment cleaner)1000 (Stopped - Provider: Vishnu oLpez RN) 200 mL/hr, at 200 mL/hr, Intravenous, [...] Routine documented in this encounter Care Teams Tire Sorter Relationship Specialty Start Date End Date Anna Mullen MD PCP - General 12/03/10 [address] [place] [address] documented as of this encounter
--- OUTSIDE RECORDS SUMMARY | 2022-04-04 00:55 | XMS_ITS | Encounter Summary ---
:1965 Author Organization [facility] [place] [address] Care Team Providers Name Role Phone Anna Mullen MD Primary Care Provider Reason for Visit Reason Comments Right Leg Pain Backache Encounter Details Date Type Department Care Team Description 02/19/2011 Office Visit Pain Management at [facility] Lumba r radiculopathy (Primary Dx); [facility] Lumbar disc herniation with radiculopath y [facility] DR Goff, [place] [facility] [address] [place] [address] [phone] Social History Tobacco Use Types Packs/Day Years [...] 2. 3. Patient states they have a straddle bug driver to transport after procedure? Yes 4. [...] met discharge criteria he was discharged from [facility]. COMMENTS: Should this injection help to improve [...] this encounter Miscellaneous Notes Miscellaneous - Hemant, Ultimate Hoops Trainer - 02/25/2011 2:37 PM EDT documented in [...] Routine documented in this encounter Care Teams Scanning Supervisor Relationship Specialty Start Date End Date Anna Mullen MD PCP - General 12/03/10 [address] [place] [address] documented as of this encounter
--- OUTSIDE RECORDS SUMMARY | 2022-04-04 00:55 | XMS_ITS | Encounter Summary ---
:1965 Author Organization [facility] [place] [address] Care Team Providers Name Role Phone Anna Mullen MD Primary Care Provider Encounter Details Date Type Department Care Team Description 01/21/2012 Office Visit Vascular Surgery at [facility] Brianna Carlos, [place] [address] Social History Tobacco Use Types Packs/Day [...] Component Value Ref Test Analysis Performed At [facility] Range Method Time Signature VB Text VASCUBASE Report Department: Vascular Surgery Lab Patient: [id number] (REESE HSU) CPT Code: 93658 ICD-9: 780.4 Referring Physician: ARAIZA, FANNIE JACKELIN [...] are based on comparisons performe d at [facility] between noninvasive carotid artery d uplex data and arteriographic evaluation of the same patients from [id number]. Q / A Sens. Spec. PPV NPV [...] giddiness documented in this encounter Care Teams Roster Clerk Relationship Specialty Start Date End Date Anna Mullen MD PCP - General 12/03/10 [address] [place] [address] documented as of this encounter
--- OUTSIDE RECORDS SUMMARY | 2022-04-04 00:55 | XMS_ITS | Encounter Summary ---
:1965 Author Organization [facility] [address] Care Team Providers Name Role Phone Anna Mullen MD Primary Care Provider Encounter Details Date Type Department Care Team Description 12/31/2011 Surgery Gastroenterology at [facility] Clayton Bhakta MD [place] [address] GASTROENTEROLOGY DEPT. [place], [place] [address] (Wo rk) Social History Tobacco [...] EDT If questions or concerns please call [phone], after 5 PM call [phone] and ask for the GI Doc websphere commerce consultant. You may have received medication before and/or [...] GI ENDOSCOPY: WHAT TO EXPECT AT HOME (LAO)documented in this encounter Medications at Time of [...] SURGICAL PATHOLOGY REPORT (12/31/2011 9:41 AM EDT) [facility] Method Time Signature Surgical CERNER Pathology ? [facility] Report ? Provider: ?? CLAYTON BHAKTA ? Pt. Name: ?? REESE NORWOOD ? Acc #: ?[id number] ?Pt. MRN: ?[id number] ? Col Date: ?? 12/31/2011 ?/Sex: ?1965,(46 [...] ? 01/01/12 Verified by: ? Renata MORENO, Mg ? Pathologist ? (Electronic Si gnature) ? [...] ? Clinical History/Diagnosis: ? Gastroparesis, GERD ? [facility] ? Provider: ?? CLAYTON BHAKTA ? Pt. Name: ?? RAPHAEL CAMACHO, REESE Guillen ? Acc #: ?[id number] ?Pt. MRN: ?[id number] ? Col Date: ?? 12/31/2011 ?/Sex: ?1965,(46 [...] Address City/State/[place] [address] FARNAZ HERBERTIUM Specimen to [...] Organization Address City/State/ZIP Code Phon e [place] [address] [facility] Specimen to Pathology (surgical or derm) (12/31/2011 9:01 AM EDT) Specimen Anatomical Collection Method Collection Time Receive d Time (Source) Location / / Volume Laterality AP Specimen 12/31/2011 9:01 AM 201 2 9:01 EDT AM EDT Narrative [facility] - 12/31/2011 9:01 AM E DT Specimen requisition ordered. ??Separate Pathology report to follow Clayton Bhakta MD PATHOLOGY/CYTOLOGY ORDERABLE S Performing Organization Address City/[facility]/ZIP Code Phon e Number [address] [facility] UPPER GI ENDOSCOPY (12/31/2011 8:12 AM EDT) Component Value Ref Test Analysis Performed At [facility] Range Method Time Signature UPPER GI [facility] PROVATION ENDOSCOPY Endoscopy Patient Name: Reese Hsu ? Procedure Date: 12/31/2011 8:12 AM ? N: [id number] ? Date of : 1965 ? Age: 46 ? Order #: [id number] ? Procedure: ? Upper GI endoscopy Indications: ? Heartburn, History of gastroparesis Providers: ? Clayton Bhakta MD, Ivy collins, ? RN, Cristine Flannery RN Referring MD: ?Anna Mullen MD Requesting [...] reactions. The ? Endoscope was introduced thro [facility][note 2] the ? mouth, and advanced to the [...] Active and Recently Administered Medications Care Teams Burn Table Operator Relationship Specialty Start Date End Date Anna Mullen MD PCP - General 12/03/10 [address] [place] [address] documented as of this encounter
--- OUTSIDE RECORDS SUMMARY | 2022-04-04 00:55 | XMS_ITS | Encounter Summary ---
:1965 Author Organization [facility] [place] [address] Care Team Providers Name Role Phone Anna Mullen MD Primary Care Provider Reason for Visit Reason Onset Date Comments Labs Only 02/27/2011 Encounter Details Date Type Department Care Team Description 02/27/2011 Telephone Endocrinology at [facility] C Una Lassiter APRN Labs Only [facility] ankit [facility] [place] [address] ENDOCRINOLOGY DEPT. [phone] [place], [place] [address] (Wo rk) Social History Tobacco [...] uncontrolled documented in this encounter Care Teams Cold Roll Operator Relationship Specialty Start Date End Date Anna Mullen MD PCP - General 12/03/10 [address] [place] [address] documented as of this encounter
--- OUTSIDE RECORDS SUMMARY | 2022-04-04 00:55 | XMS_ITS | Encounter Summary ---
:1965 Author Organization [facility] [address] Care Team Providers Name Role Phone Anna Mullen MD Primary Care Provider Encounter Details Date Type Department Care Team Description 10/16/2011 Orders Only Endocrinology at [facility] Divya Hermosillo, [facility] [place] [address] [facility] [phone] ENDOCRINOLOGY DE PT. [place], [place] [address] (Wo rk) Social History Tobacco [...] on filedocumented in this encounter Care Teams Airport Maintenance Chief Relationship Specialty Start Date End Date Anna Mullen MD PCP - General 12/03/10 [address] [place] [address] documented as of this encounter
--- OUTSIDE RECORDS SUMMARY | 2022-04-04 00:55 | XMS_ITS | Encounter Summary ---
:1965 Author Organization [facility] [place] [address] Care Team Providers Name Role Phone Anna Mullen MD Primary Care Provider Encounter Details Date Type Department Care Team Description 11/14/2011 Orders Only Neurology at [facility] Geoffrey Martinez MD [facility] [place] [address] NEUROLOGY DEPT. [phone] [place], [place] [address] (Wo rk) Social History Tobacco [...] Volume Laterality 11/14/2011 10:41 AM EDT Narrative [facility] - 02/24/2014 1:34 AM EDT This is a non-reportable exam. Procedure Note ShariRylan - 02/24/2014Formatting of t his note might be different from the original. This is a non-reportable exam. Geoffrey Martinez MD IM FILM LIBRARY ORDERABLES Performing Organization Address City/State/ZIP Code Phon e Number [facility] [address] [facility] [place] [address] documented in this encounter Visit Diagnoses Not on filedocumented in this encounter Care Teams Molding Engineer Relationship Specialty Start Date End Date Anna Mullen MD PCP - General 12/03/10 [address] [place] [address] documented as of this encounter
--- OUTSIDE RECORDS SUMMARY | 2022-04-04 00:55 | XMS_ITS | Encounter Summary ---
:1965 Author Organization [facility] [place] [address] Care Team Providers Name Role Phone Anna Mullen MD Primary Care Provider Reason for Referral Consultation (Routine) - Closed Specialty Diagnoses / Procedures Referred By Contact Refer red To Contact Pain Management Diagnoses LBP radiating to right leg Jesus Diana MD [facility] 3d [facility] SPINE [address] [address] Fax: Referral ID Status Reason Start Date Expiration Date Visits V isits Requested Authorized [id number] Closed Consult, 01/28/2011 07/27/2011 1 1 Test & Treat Reason for Visit Reason Comments Disc Herniation Low back pain, radiates to l egs, ankle (Right) Encounter Details Date Type Department Care Team Description 01/28/2011 Office Visit Spine Center at Jesus Diana, LBP ra diating to right [place] MORENO leg (Primary Dx) [facility] [address] [place], [place] [facility] [address] [place] [address] [phone] Social History Tobacco Use Types Packs/Day Years [...] to have stress test by Dr. Reddy, Product Development Intern. His recent test for Lyme disease was negative. Review of systems is positive for chest pain with dyspnea, this occurs on a monthly basis and he hasbeen known to take nitroglycerin. He also has symptoms of gastroesophageal reflux disease and gastroparesis. No other bowel or bladder issues. 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 He is a nonsmoker and nondrinker. Lives in [facility] [facility] with his spouse. Family history includes diabetes, [...] past. He can also try LESI at [facility] up to 3 times a year. He will be reviewed on a PRN basis. 40 min of this 60 min [id number] visit was spent in counseling her regarding [...] Lumbago documented in this encounter Care Teams Testboard Operator Relationship Specialty Start Date End Date Anna Mullen MD PCP - General 12/03/10 [address] [place] [address] documented as of this encounter
--- OUTSIDE RECORDS SUMMARY | 2022-04-04 00:55 | XMS_ITS | Encounter Summary ---
:1965 Author Organization [facility] [place] [address] Care Team Providers Name Role Phone Anna Mullen MD Primary Care Provider Encounter Details Date Type Department Care Team Description 07/18/2011 Orders Only Cardiology at [facility] Layla Freeman PA [facility] [place] [address] CARDIOLOGY DEPT. [phone] [place], [place] [address] (Wo rk) Social History Tobacco [...] on filedocumented in this encounter Care Teams Secretary Book Keeper Relationship Specialty Start Date End Date Anna Mullen MD PCP - General 12/03/10 [address] [place] [address] documented as of this encounter
--- OUTSIDE RECORDS SUMMARY | 2022-04-04 00:55 | XMS_ITS | Encounter Summary ---
:1965 Author Organization [facility] [place] [address] Care Team Providers Name Role Phone Anna Mullen MD Primary Care Provider Reason for Visit Reason Onset Date Comments Medication Refill 06/09/2011 Encounter Details Date Type Department Care Team Description 06/09/2011 Refill Endocrinology at [facility] Divya Hermosillo MD [facility] [place] [address] ENDOCRINOLOGY DEPT. [phone] [place], [place] [address] (Wo rk) Social History Tobacco [...] on filedocumented in this encounter Care Teams Millwright Relationship Specialty Start Date End Date Anna Mullen MD PCP - General 12/03/10 [address] [place], [place] [address] documented as of this encounter
--- OUTSIDE RECORDS SUMMARY | 2022-04-04 00:55 | XMS_ITS | Encounter Summary ---
:1965 Author Organization [place] [address] Care Team Providers Name Role Phone Anna Mullen MD Primary Care Provider Encounter Details Date Type Department Care Team Description 01/21/2012 Office Visit Neurology at [facility] Geoffrey Martinez Other late effects of [facility] MD Brigitte cerebrovascular disease Drive [facility] (Primary Dx) [place], [place] CENTER [address] NEUROLOGY DEPT. [phone] [place] [id number] Social History Tobacco Use Types Packs/Day Years [...] Disease and Stroke Program Department of Neurology [facility] [place] [address] t: [phone] / f: [phone] Date of Consultation: 01/21/2012 Patient: Richard Hsu : 1965 PCP: ANNA MULLEN MD Referred By: FANNIE ARAIZA [facility] [place] [address] This 46 y.o. male is evaluated because [...] in 2000. Also had extensive evaluation at [facility] including inpatient care and visits with [...] about a year ago and went to [facility] ED. Sleep poor since HAs worse. Celexa unclear benefit. Has had problems with constipation and needs Miralax. Was getting sweats until Norvasc started. MRA neck 11/09 unremarkable. 09/11 had MRI [facility] and reportedly unremarkable. Other relevant past hx [...] mouth every 6 hours as needed. ??? [place]-3 Fatty Acids-Vitamin E (FISH OIL) 1,000 mg [...] mg suppository 25 MG = 1 Suppository(s), [place], Once daily,PRN History Social History ??? Marital [...] nasolabial fold Data reviewed: MRI done at [facility] 09/11 was reviewed after his appointment and shows a well- defined small T2 hyperintensity near the upper pyramid of the right medulla and some atrophy of the pyramid. MRA neck only [facility] 11/09 reviewed and shows a diffusely small [...] EDT) athologist Signature B2GPI IgG <21 <=20 [facility] unit(s) MILLENNIUM Comment: Ranges ?Units ----- ? [...] Martinez MD IMMUNOLOGY ORDERABLES Performing Organization Address [facility]/ZIP Code Phon e [address] [facility] Lupus Anticoagulant (01/21/2012 4:15 PM EDT) P athologist Signature Lupus Anticoag Neg Neg [facility] Specimen Anatomical Collection Method Collection Time Receive d Time (Source) Location / / Volume Laterality Blood specimen 01/21/2012 4:15 PM 012 4:25 (specimen) EDT PM EDT Resulting Agency Comment Spec In Lab Geoffrey Martinez MD HEMATOLOGY ORDERABLES Performing Organization Address [facility] Phon e [address] [facility] (ABNORMAL) Cardiolipin Antibody Screen (01/21/2012 4:15 PM EDT) P athologist Signature Cardiolipin IgG <23 <=22 GPL [facility]) [facility] Comment: Ranges ? GPL ------- ? [...] Martinez MD IMMUNOLOGY ORDERABLES Performing Organization Address City/[facility]/ZIP Code Phon e Number [address] [facility] Lactic acid, plasma (01/21/2012 4:15 PM EDT) P athologist Signature Lactate 1.3 0.5 - 2.2 CERNER mmol/L [facility]ILLENNIUM Specimen Anatomical Collection Method Collection Time Receive d Time (Source) Location / / Volume Laterality Blood specimen 01/21/2012 4:15 PM 012 4:24 (specimen) EDT PM EDT Resulting Agency Comment Spec In Lab Geoffrey Martinez MD CHEMISTRY ORDERABLES Performing Organization Address City/[facility]/ZIP Code Phon e Number [address] [facility] documented in this encounter Visit Diagnoses Diagnosis 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
--- OUTSIDE RECORDS SUMMARY | 2022-04-04 00:55 | XMS_ITS | Encounter Summary ---
:1965 Author Organization [facility] [address] Care Team Providers Name Role Phone Anna Mullen MD Primary Care Provider Reason for Visit Reason Onset Date Comments Labs Only 10/09/2011 Encounter Details Date Type Department Care Team Description 10/09/2011 Telephone Endocrinology at [facility] C Divya Coles, Labs Only [facility] [place] [address] [facility] [phone] ENDOCRINOLOGY DE PT. [place], [place] [address] (Wo rk) Social History Tobacco [...] 30 - 300 Clinical Albuminuria ?? >300 *[place] Diabetes Association. Diabetic Nephropathy. Diabetes Care 1997;(Suppl [...] Organization Address City/State/[place] [address] [facility] HDL/Cholesterol Profile (10/10/2011 11:49 AM EST) athologist Signature Chol, Total 118 <=199 mg/dL CERNER MILLENNIUM Comment: Recommendations of the NCEP Adult Treatm ent Panel for the following risk cutoff thresholds for the [place] populatio n: Desirable: <200 mg/dL Borderline High: 200-239 mg/dL High: > or = 240 mg/dL HDL 54 >=40 mg/dL [facility] MILLENNIUM Comment: Reference range: ??Low HDL: ?? < 40 mg/dL ??Normal: ?40-60 mg/dL ??Desirable: > 60 mg/dL MARQUEZ 2001; 285(19):9540-9305 Chol/HDL Ratio 2.2 ratio CERNER MILLENNI UM Comment: A Cholesterol to HDL ratio below 4:1 is desirable. ??Studies suggest that increased CAD risk occurs at ratios abov e 5 for females and above 6 for men. ? [place] Heart Association ??(htt p://www.americanheart.org) ? Joy Int Med, 1994; 121:641 ? AM J Med, 1998; 105(1A):48S Specimen Anatomical Collection Method Collection Time Receive d Time (Source) Location / / Volume Laterality Blood specimen 10/10/2011 11:49 2 (specimen) AM EST 11:59 AM EST Divya Coles MD CHEMISTRY ORDERABLES Performing Organization Address [facility]/[place] [address] CERNER MILLENNIUM TSH (10/10/2011 11:49 AM EST) P athologist Signature TSH 4.17 0.27 - 4.20 CERNER mcIU/mL MILLENNIUM Specimen Anatomical Collection Method Collection Time Receive d Time (Source) Location / / Volume Laterality Blood specimen 10/10/2011 11:49 2 (specimen) AM EST 11:59 AM EST Divya Coles MD CHEMISTRY ORDERABLES Performing Organization Address City/[facility]/[place] [address] CERNER MILLENNIUM LDL Cholesterol, [...] High: ? 160-189 mg/dL ?? Very high: ?>tq=743 mg/dL MARQUEZ 2001: 285(19):6904-6718 Specimen Anatomical Collection Method Collection Time Receive d Time (Source) Location / / Volume Laterality Blood specimen 10/10/2011 11:49 2 (specimen) AM EST 11:59 AM EST Divya Coles MD CHEMISTRY ORDERABLES Performing Organization Address City/State/ZIP Code [place] [address] CERNER MILLENNIUM Creatinine, serum [...] Address City/State/ZIP Code [place] [address] FARNAZ SWENSON (ABNORMAL) Hemoglobin A1c (10/10/2011 11:49 AM EST) Analysis Performed At Patho logis Time Signature Hemoglobin A1C 7.1 (H) 4.3 - 6.1 CERNER % MILLENNIUM Est Avg Gluc 157 mg/dL [facility] Comment: eAG equivalents for HbA1c percentages: HbA1c(%) ?eAG(mg/dL) 6.0 ?126 6.5 ?140 7.0 ?154 7.5 ?169 8.0 ?183 8.5 ?197 9.0 ?212 9.5 ?226 10.0 ? 240 Limitations: The eAG calculation has not been validated on women, individuals below 18 years old and above 70 years old, and individuals with hemoglobinopathies. Additional resources are available on [facility] ADA website: ??http://professional.diabetes.org/gluc osecalculator.aspx Reference: Edinson GRISSOM, Nathaniel J, Ari R, et al. ??Tr anslating the A1C assay into estimated average glucose values. ??Diabetes Care 2008:31(8):2658-9896. Specimen Anatomical Collection Method Collection Time Receive d Time (Source) Location / / Volume Laterality Blood specimen 10/10/2011 11:49 2 (specimen) AM EST 11:59 AM EST Divya Coles MD CHEMISTRY ORDERABLES Performing Organization Address City/State/[place] [address] [facility] documented in this encounter Visit Diagnoses Diagnosis DM type 1 (diabetes mellitus, type 1) - Primary Type I (juvenile type) diabetes mellitus without mention of complication, not stated as uncontrolled documented in this encounter Care Teams Claim Adjuster Relationship Specialty Start Date End Date Anna Mullen MD PCP - General 12/03/10 [address] [place] [address] documented as of this encounter
--- OUTSIDE RECORDS SUMMARY | 2022-04-04 00:55 | XMS_ITS | Encounter Summary ---
:1965 Author Organization [place] [address] Care Team Providers Name Role Phone Anna Mullen MD Primary Care Provider Reason for Visit Reason Comments Backache Right leg pain Encounter Details Date Type Department Care Team Description 04/28/2011 Office Visit Pain Management at [facility] Lumba r radicular pain (Primary Dx); [facility] Thoracic or lumbosacral neuritis or radi culitis, unspecified [facility] [address] [place], [place] [facility] [address] [place] [address] [phone] Social History Tobacco Use Types Packs/Day Years [...] 2. 3. Patient states they have a seasonal delivery driver to transport after procedure? Yes 4. [...] INJECTION Date of Service: 04/28/2011 Patient: Richard Hsu Provider: PRIMO PETERSON MD Richard Hsu has [...] discharged in the care of an identified seasonal delivery driver. COMMENTS: He will f/u with Dr. Diana. If he has good relief but does last either this or the ROBIN can be repeated. CC: ANNA MULLEN MD @PCPADD@ documented in this encounter Miscellaneous Notes Miscellaneous - Hemant, Cantilever Crane Operator - 05/02/2011 9:44 AM EDT documented in [...] Routine documented in this encounter Care Teams Principal Technologist Relationship Specialty Start Date End Date Anna Mullen MD PCP - General 12/03/10 [address] [place] [address] documented as of this encounter
--- OUTSIDE RECORDS SUMMARY | 2022-04-04 00:55 | XMS_ITS | Encounter Summary ---
:1965 Author Organization [facility] [place] [address] Care Team Providers Name Role Phone Anna Mullen MD Primary Care Provider Reason for Visit Reason Onset Date Comments Medication Refill 06/06/2011 Encounter Details Date Type Department Care Team Description 06/06/2011 Refill Endocrinology at [facility] Divya Hermosillo MD [facility] [place] [address] ENDOCRINOLOGY DEPT. [phone] [place], [place] [address] (Wo rk) Social History Tobacco [...] on filedocumented in this encounter Care Teams Bariatric Program Coordinator Relationship Specialty Start Date End Date Anna Mullen MD PCP - General 12/03/10 [address] [place], [place] [address] documented as of this encounter
--- OUTSIDE RECORDS SUMMARY | 2022-04-04 00:55 | XMS_ITS | Encounter Summary ---
:1965 Author Organization [facility] [place] [address] Care Team Providers Name Role Phone Anna Mullen MD Primary Care Provider Encounter Details Date Type Department Care Team Description 07/21/2011 Orders Only Cardiology at [facility] Froy Hampton MD [facility] [place] [address] CARDIOLOGY DEPT. [phone] [place], [place] [address] (Wo rk) Social History Tobacco [...] on filedocumented in this encounter Care Teams Handle Turner Relationship Specialty Start Date End Date Anna Mullen MD PCP - General 12/03/10 [address] [place] [address] documented as of this encounter
--- OUTSIDE RECORDS SUMMARY | 2022-04-04 00:55 | XMS_ITS | Encounter Summary ---
:1965 Author Organization [facility] [place] [address] Care Team Providers Name Role Phone Anna Mullen MD Primary Care Provider Encounter Details Date Type Department Care Team Description 04/28/2011 Hospital Encounter XRay at [address] [place] [address] Social History Tobacco Use Types Packs/Day [...] 0 10/18/2013 tablet mouth 2 times daily. Osteen-3 Fatty Take 5,000 mg by 0 01/08/201109/06 Acids-Vitamin E (FISH OIL) mouth daily. 1,000 mg Cap Acetone, Urine, Test by [facility].(Non-Drug; 0 09/02/2013 (ACETONE, URINE, TEST) Combo Route) [...] on filedocumented in this encounter Care Teams Sports Therapist Relationship Specialty Start Date End Date Anna Mullen MD PCP - General 12/03/10 [address] [place] [address] documented as of this encounter
--- OUTSIDE RECORDS SUMMARY | 2022-04-04 00:55 | XMS_ITS | Encounter Summary ---
:1965 Author Organization [facility] [address] Care Team Providers Name Role Phone Anna Mullen MD Primary Care Provider Reason for Visit Reason Comments Chest Pain Encounter Details Date Type Department Care Team Description 01/16/2011 Follow-Up Cardiology at [facility] Wilner Reddy CAD (coronary artery [facility] MD Layla disease) (Primary Dx) [place] [address] CARDIOLOGY DEPT. 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 He is now .. He doesn't smoke [...] ? VAZQUEZ Guillen ?(Age): 1965(45) Med Rec#: ?[id number] ?Sex: ?M ? Site Loc: ?[facility] ?Ht / Wt: 182(cm)/104(kg) Pt. Loc: ? Echo Lab ?BSA: ?10.25 Study Date: ?02/21/2011 ?Pt. Type: Outpatient Tape: ? Referring: Wilner Reddy Decorative Cutting Machine Tender: Jameel Van Mechanical Systems Control Engineer: Maryjane Marley MATTEO Interpreting Fellow: Paul Nunez Diagnosis: ??Chest pain (786.50) CPT Code(s): ??Doppler LTD (38590), ??EC G Interpretation (33441), ??Stress Echo (87536), ??Color Doppler (50004), Indication(s): ??Chest Pain Medication(s): ?? Rhythm: Stage [...] ?Normal ?Normal ? Mid-Inferoseptal ?Normal ?Normal ? [place]-Septal ? Normal ?Normal ? [place]-Anterior ? Normal ?Normal ? [place]-Lateral ?Normal ?Normal ? [place]-Inferior ? Normal ?Normal ? [place]-Tip ?Normal ?Normal ? Chambers ?Value ?Units (Range) ? LV EF Est ? 65 ? % (55 to 80) ? Tricuspid/Pulmonic Valves ?Value ?Units (Range) ? TR peak parth ? 2.4 ?m/sec ? This report has been electronically sign ed by: _ Omar Aviles M.D. ? 02/21/2011 09:36:05 Images reviewed and interpretation tyson tamayo [facility] Cardiac Ultrasound Laboratory Procedure Note 02/21/2011 Procedure: Stress Echocardiogram Patient: VAZQUEZ Guillen (Age): [birth year]) Med Rec#: [id number] Sex: M Site Loc: [facility] Ht / Wt: 182(cm)/104(kg) Pt. Loc: Echo Lab BSA: 2.25 Study Date: 02/21/2011 Pt. Type: Outpati ent Tape: Referring: Wilner Reddy Decorative Cutting Machine Tender: Jameel Van Mechanical Systems Control Engineer: Maryjane Marley RDCS Interpreting Fellow: Paul Nunez Diagnosis: Chest pain (786.50) CPT Code(s): Doppler LTD (55868), ECG In terpretation (43083), Stress Echo (61847), Color Doppler (81876), Indication(s): Chest Pain Medication(s): Rhythm: Stage HR [...] Normal Mid-Inferior Normal Normal Mid-Inferoseptal Normal Normal [place]-Septal Normal Normal [place]-Anterior Normal Normal [place]-Lateral Normal Normal [place]-Inferior Normal Normal [place]-Tip Normal Normal Chambers Value Units (Range) LV EF Est 65 % (55 to 80) Tricuspid/Pulmonic Valves Value Units (Range) TR peak parth 2.4 m/sec This report has been electronically sign ed by: _ Omar Aviles M.D. 02/21/2011 09:36 :05 Images reviewed and interpretation verif ied [facility] Cardiac Ultrasound Laboratory Wilner Reddy MD ECHO ORDERABLES Performing Organization Address City/State/ZIP Code Phon e Number [facility] documented in this encounter Visit Diagnoses Diagnosis CAD (coronary artery disease) - Primary Coronary atherosclerosis of unspecified type of vessel, eklutna or graft CAD (coronary artery disease) Coronary atherosclerosis of unspecified type of vessel, eklutna or graft documented in this encounter Care Teams Custodian Blood Bank Relationship Specialty Start Date End Date Anna Mullen MD PCP - General 12/03/10 [address] [place] [address] documented as of this encounter
--- OUTSIDE RECORDS SUMMARY | 2022-04-04 00:55 | XMS_ITS | Encounter Summary ---
:1965 Author Organization [facility] [place] [address] Care Team Providers Name Role Phone Anna Mullen MD Primary Care Provider Encounter Details Date Type Department Care Team Description 06/04/2011 Orders Only Neurology at [facility] Joselin Phillip, [facility] [place] [address] [facility] [phone] NEUROLOGY DEPT. [place], [place] [address] (Wo rk) Social History Tobacco [...] filedocumented in this encounter Care Teams Digital Photographic Printer Relationship Specialty Start Date End Date Anna Mullen MD PCP - General 12/03/10 [address] [place], [place] [address] documented as of this encounter
--- OUTSIDE RECORDS SUMMARY | 2022-04-04 00:55 | XMS_ITS | Encounter Summary ---
:1965 Author Organization [facility] [place] [address] Care Team Providers Name Role Phone Anna Mullen MD Primary Care Provider Reason for Referral Consultation (Routine) - Closed Specialty Diagnoses / Procedures Referred By Contact Refer red To Contact Neurology Diagnoses Dizziness Fannie Trevino MD Lukovits, Timothy G, MD [facility] CARDIOLOGY DEPT. NEUROLOGY DEPT. [address] [address] Fax: Referral ID Status Reason Start Date Expiration Date Visits V isits Requested Authorized [id number] Closed Consult Only 01/15/2012 07/13/2012 1 1 Reason for Visit Reason Comments Follow-up S/P cath Encounter Details Date Type Department Care Team Description 01/15/2012 Follow-Up Cardiology at [facility] Fannie Trevino, Dizziness (Primary Dx); [facility] Diabetes mellitus; [place] [address] CARDIOLOGY DEPT. [place], [place] [address] (Wo rk) Social History Tobacco [...] mouth every 6 hours as needed. ??? [place]-3 Fatty Acids-Vitamin E (FISH OIL) 1,000 mg [...] mg suppository 25 MG = 1 Suppository(s), [place], Once daily,PRN ??? DISCONTD: losartan (COZAAR) 25 [...] collapsed at home and was brought into [facility] ([facility]). According to the patient, he initially had [...] those times. He was recently seen in [place] by a neurologist who obtained an MRI/MRA. [...] adopted children, and 2 stepchildren -works in [employer] Family history: -his mother had a hole in her heart that required surgery at age 5, she was apparently one of the first pediatric cardiac surgeries at [facility] -he has a daughter who had a [...] Component Value Ref Test Analysis Performed At [facility] Range Method Time Signature VB Text VASCUBASE Report Department: Vascular Surgery Lab Patient: [id number] (VAZQUEZREESE) CPT Code: 69959 ICD-9: 780.4 Referring Physician: FANNIE TREVINO Indication: [...] are based on comparisons performe d at [facility] between noninvasive carotid artery d uplex data and arteriographic evaluation of the same patients from [id number]. Q / A Sens. Spec. PPV NPV [...] Edema documented in this encounter Care Teams Tnt Line Supervisor Relationship Specialty Start Date End Date Anna Mullen MD PCP - General 12/03/10 [address] [place] [address] documented as of this encounter
--- OUTSIDE RECORDS SUMMARY | 2022-04-04 00:55 | XMS_ITS | Encounter Summary ---
:1965 Author Organization [facility] [place] [address] Care Team Providers Name Role Phone Anna Mullen MD Primary Care Provider Reason for Visit Reason Comments Diabetes Encounter Details Date Type Department Care Team Description 10/10/2011 Office Visit Endocrinology at [facility] Divya Hermosillo DM type 1 (diabetes [facility] CMD mellitus, type 1) [facility] (Primary Dx) [place] [address] ENDOCRINOLOGY DEPT. [place], [place] [address] Social History Tobacco Use Types [...] and peanut butter; for lunch, a 12-inch rail grinder usually at [employer]; afternoon snack, a bag of chips; for supper, he had steak, Turkmen fries, and corn; and evening snack, a [...] mouth every 6 hours as needed. ??? [place]-3 Fatty Acids-Vitamin E (FISH OIL) 1,000 mg [...] mg suppository 25 MG = 1 Suppository(s), [place], Once daily,PRN ??? metoprolol tartrate (LOPRESSOR) 50 [...] 30 - 300 Clinical Albuminuria ?? >300 *[place] Diabetes Association. Diabetic Nephropathy. Diabetes Care 1997;(Suppl [...] Organization Address City/State/[place] [address] CERNER MILLENNIUM HDL/Cholesterol Profile (10/10/2011 11:49 AM EST) P athologist Signature Chol, Total 118 <=199 mg/dL CERNER MILLENNIUM Comment: Recommendations of the NCEP Adult Treatm ent Panel for the following risk cutoff thresholds for the [place] populatio n: Desirable: <200 mg/dL Borderline High: 200-239 mg/dL High: > or = 240 mg/dL HDL 54 >=40 mg/dL CERNER MILLENNIUM Comment: Reference range: ??Low HDL: ?? < 40 mg/dL ??Normal: ?40-60 mg/dL ??Desirable: > 60 mg/dL MARQUEZ 2001; 285(19):4645-1852 Chol/HDL Ratio 2.2 ratio CERNER MILLENNI UM Comment: A Cholesterol to HDL ratio below 4:1 is desirable. ??Studies suggest that increased CAD risk occurs at ratios abov e 5 for females and above 6 for men. ? [place] Heart Association ??(htt p://www.americanheart.org) ? Joy Int Med, 1994; 121:641 ? AM J Med, 1998; 105(1A):48S Specimen Anatomical Collection Method Collection Time Receive d Time (Source) Location / / Volume Laterality Blood specimen 10/10/2011 11:49 2 (specimen) AM EST 11:59 AM EST Divya Coles MD CHEMISTRY ORDERABLES Performing Organization Address City/[facility]/ZIP Code Phon e Number [address] [facility] TSH (10/10/2011 11:49 AM EST) P athologist Signature TSH 4.17 0.27 - 4.20 CERNER mcIU/mL [facility] Specimen Anatomical Collection Method Collection Time Receive d Time (Source) Location / / Volume Laterality Blood specimen 10/10/2011 11:49 2 (specimen) AM EST 11:59 AM EST Divya Coles MD CHEMISTRY ORDERABLES Performing Organization Address City/[facility]/ZIP [facility] Phon e Number [address] [facility] LDL Cholesterol, Direct (10/10/2011 11:49 AM EST) P athologist Signature LDL Chol 58 <=99 mg/dL CERNER Direct MILLENNIUM Comment: The National Cholesterol Education Progr am (NCEP) has set the following guidelines for LDL Cholesterol: Reference range: ?? Optimal: ?<100 mg/dL ?? Near Optimal/Above Optimal: ?? 100-1 29 mg/dL ?? Borderline high: ?130-159 mg/dL ?? High: ? 160-189 mg/dL ?? Very high: ?>ud=886 mg/dL MARQUEZ 2001: 28519):5934-6215 Specimen Anatomical Collection Method Collection Time Receive d Time (Source) Location / / Volume Laterality Blood specimen 10/10/2011 11:49 2 (specimen) AM EST 11:59 AM EST Divya Coles MD CHEMISTRY ORDERABLES Performing Organization Address City/State/[place] [address] CERNER MILLENNIUM Creatinine, serum [...] Organization Address City/State/[place] [address] CERNER MILLENNIUM (ABNORMAL) Hemoglobin A1c (10/10/2011 11:49 AM EST) Analysis Performed At [facility] Time Signature Hemoglobin A1C 7.1 (H) 4.3 [...] into estimated average glucose values. ??Diabetes Care 2008:31(8):8441-1042. Specimen Anatomical Collection Method Collection Time Receive d Time (Source) Location / / Volume Laterality Blood specimen 10/10/2011 11:49 2 (specimen) AM EST 11:59 AM EST Divya Coles MD CHEMISTRY ORDERABLES Performing Organization Address City/State/ZIP Code Phon e Number [address] [facility] documented in this encounter Visit Diagnoses Diagnosis DM type 1 (diabetes mellitus, type 1) - Primary Type I (juvenile type) diabetes mellitus without mention of complication, not stated as uncontrolled documented in this encounter Care Teams Claims Associate Relationship Specialty Start Date End Date Anna Mullen MD PCP - General 12/03/10 [address] [place] [address] documented as of this encounter
--- OUTSIDE RECORDS SUMMARY | 2022-04-04 00:55 | XMS_ITS | Encounter Summary ---
:1965 Author Organization [facility] [place] [address] Care Team Providers Name Role Phone Anna Mullen MD Primary Care Provider Reason for Visit Reason Onset Date Comments Medication Refill 10/16/2011 Encounter Details Date Type Department Care Team Description 10/16/2011 Refill Endocrinology at [facility] Divya Hermosillo MD [facility] [place] [address] ENDOCRINOLOGY DEPT. [phone] [place], [place] [address] (Wo rk) Social History Tobacco [...] filedocumented in this encounter Care Teams Clinical Admissions Manager Relationship Specialty Start Date End Date Anna Mullen MD PCP - General 12/03/10 [address] [place] [address] documented as of this encounter
--- OUTSIDE RECORDS SUMMARY | 2022-04-04 00:55 | XMS_ITS | Encounter Summary ---
:1965 Author Organization [facility] [place] [address] Care Team Providers Name Role Phone Anna Mullen MD Primary Care Provider Encounter Details Date Type Department Care Team Description 04/28/2011 Orders Only Pain Management at L Richard Waldrop MD [facility] [place] [address] PAIN CLINIC [phone] [place], [place] [address] (Wo rk) Social History Tobacco [...] Organization Address City/State/ZIP Code Phon e Number [facility] [address] [facility] [place] [address] documented in this encounter Visit Diagnoses Not on filedocumented in this encounter Care Teams Full Stack Python Developer Relationship Specialty Start Date End Date Anna Mullen MD PCP - General 12/03/10 [address] [place] [address] documented as of this encounter
--- OUTSIDE RECORDS SUMMARY | 2022-04-04 00:55 | XMS_ITS | Encounter Summary ---
:1965 Author Organization [facility] [place] [address] Care Team Providers Name Role Phone Anna Mullen MD Primary Care Provider Encounter Details Date Type Department Care Team Description 01/15/2012 Abstract Neurology at [facility] Hillary Duenas, [place] [address] Social History Tobacco Use Types Packs/Day [...] on filedocumented in this encounter Care Teams Wide Load Escort Relationship Specialty Start Date End Date Anna Mullen MD PCP - General 12/03/10 [address] [place], [place] [address] documented as of this encounter
--- OUTSIDE RECORDS SUMMARY | 2022-04-04 00:55 | XMS_ITS | Encounter Summary ---
:1965 Author Organization [facility] [place] [address] Care Team Providers Name Role Phone Anna Mullen MD Primary Care Provider Encounter Details Date Type Department Care Team Description 09/25/2011 Orders Only Solid Organ Transplant at [facility] nickolas Stoddard [facility] Unique [place] [address] TRANSPLANT SURGERY [phone] [place], [place] [address] (Wo rk) Social History Tobacco [...] Associated Diagnosis Comme nts FILM LIBRARY Routine 09/25/2011 1:48 PM Results f or this STORAGE ONLY MR EST procedure ar e in HEAD the results section. documented in this encounter Results FILM LIBRARY- STORAGE ONLY MR HEAD (09/25/2011 1:48 PM EST) Specimen (Source) Anatomical Collection Method Collection Time Re ceived Time Location / / Volume Laterality 09/25/2011 1:48 PM EST Narrative [facility] - 02/24/2014 1:35 AM EDT This is a non-reportable exam. Procedure Note Shari, Rylan - 02/24/2014Formatting of t his note might be different from the original. This is a non-reportable exam. Eriberto Melgar MD IM FILM LIBRARY ORDERABLES Performing Organization Address City/State/ZIP Code Phon e Number [facility] [address] [facility] [place] [address] documented in this encounter Visit Diagnoses Not on filedocumented in this encounter Care Teams Lactation Nurse Relationship Specialty Start Date End Date Anna Mullen MD PCP - General 12/03/10 [address] [place] [address] documented as of this encounter
--- OUTSIDE RECORDS SUMMARY | 2022-04-04 00:55 | XMS_ITS | Encounter Summary ---
:1965 Author Organization [facility] [place] [address] Care Team Providers Name Role Phone Anna Mullen MD Primary Care Provider Encounter Details Date Type Department Care Team Description 01/12/2012 Orders Only Solid Organ Transplant Eloisa Stuart RN P ancreas disorder at [facility] (Primary Dx) [place] [address] Social History Tobacco Use Types Packs/Day [...] ?? No pleural effusion. ??Normal size of [facility] heart and mediastinum. Procedure Note Catrina Robles [...] (01/21/2012 4:15 PM EDT) Analysis Performed At [facility] Time Signature Hemoglobin A1C 6.9 (H) 4.3 - 6.1 CERNER % MILLENNIUM Est Avg Gluc 151 mg/dL CERNER [facility] Comment: eAG equivalents for HbA1c percentages: HbA1c(%) ?eAG(mg/dL) 6.0 ?126 6.5 ?140 7.0 ?154 7.5 ?169 8.0 ?183 8.5 ?197 9.0 ?212 9.5 ?226 10.0 ? 240 Limitations: The eAG calculation has not been validated on women, individuals below 18 years old and above 70 years old, and individuals with hemoglobinopathies. Additional resources are available on [facility] ADA website: ??http://professional.diabetes.org/gluc osecalculator.aspx Reference: Edinson GRISSOM, Nathaniel J, Ari R, et al. ??Tr anslating the A1C assay into estimated average glucose values. ??Diabetes Care 2008:31(8):2331-1788. Specimen Anatomical Collection Method Collection Time Receive d Time (Source) Location / / Volume Laterality Blood specimen 01/21/2012 4:15 PM 012 4:25 (specimen) EDT PM EDT Resulting Agency Comment Spec In Lab Iraj Keller MD CHEMISTRY ORDERABLES Performing Organization Address [facility] Phon e Number [address] CERNER MILLENNIUM Varicella zoster Antibody, IgG (01/21/2012 4:15 PM EDT) Analysis Performed At [facility] Time Signature Varicella IgG Positive [facility] Specimen Anatomical Collection Method Collection Time Receive d Time (Source) Location / / Volume Laterality Blood specimen 01/21/2012 4:15 PM 012 8:44 (specimen) EDT AM EDT Resulting Agency Comment Spec In Lab Iraj Keller MD IMMUNOLOGY ORDERABLES Performing Organization Address [facility] Phon e Number [address] CERNER MILLENNIUM Hepatitis C Antibody (01/21/2012 4:15 PM EDT) Analysis Performed At [facility]o logist Time Signature Hepatitis C Ab Negative Negative [facility] Specimen Anatomical Collection Method Collection Time Receive d Time (Source) Location / / Volume Laterality Blood specimen 01/21/2012 4:15 PM 012 4:25 (specimen) EDT PM EDT Resulting Agency Comment Spec In Lab Iraj Keller MD IMMUNOLOGY ORDERABLES Performing Organization Address [facility] Phon e Number [address] [facility] Seth-Myers Virus Antibodies (01/21/2012 [...] infection with EBV. Test Performed by: [facility] [employer] [address], [place] [address] Marine Oiler: Sarita Beach, Ph.D. Specimen Anatomical Collection Method Collection Time Receive d Time (Source) Location / / Volume Laterality Blood specimen 01/21/2012 4:15 PM 012 8:32 (specimen) EDT AM EDT Resulting Agency Comment Spec In Lab Iraj Keller MD IMMUNOLOGY ORDERABLES Performing Organization Address [facility] [place] [address] FARNAZ SWENSON CMV Antibody, IgM (01/21/2012 4:15 PM EDT) P athologist Signature CMV IgM Negative CERNER MILLENNIUM Specimen Anatomical Collection Method Collection Time Receive d Time (Source) Location / / Volume Laterality Blood specimen 01/21/2012 4:15 PM 012 8:44 (specimen) EDT AM EDT Resulting Agency Comment Spec In Lab Iraj Keller MD IMMUNOLOGY ORDERABLES Performing Organization Address [facility]/[place] [address] CERNER MILLENNIUM CMV Antibody, IgG (01/21/2012 4:15 PM EDT) athologist Signature CMV IgG Negative CERNER [facility] Specimen Anatomical Collection Method Collection Time Receive d Time (Source) Location / / Volume Laterality Blood specimen 01/21/2012 4:15 PM 012 8:44 (specimen) EDT AM EDT Resulting Agency Comment Spec In Lab Iraj Keller MD IMMUNOLOGY ORDERABLES Performing Organization Address City/[facility]/ZIP Code Phon e Number [address] CERNER MILLENNIUM Syphilis Antibody, IgG (01/21/2012 4:15 PM EDT) athologist Signature Syphilis IgG Negative Negative [facility] Specimen Anatomical Collection Method Collection Time Receive d Time (Source) Location / / Volume Laterality Blood specimen 01/21/2012 4:15 PM 012 9:54 (specimen) EDT AM EDT Resulting Agency Comment Spec In Lab Iraj Keller MD IMMUNOLOGY ORDERABLES Performing Organization Address City/[facility]/ZIP Code Phon e Number [address] CERNER MILLENNIUM QuantiFERON-TB Gold (01/21/2012 4:15 PM EDT) [facility] Method Time Signature Quantiferon TB Negative [...] IT assay will be performed in the [facility] Reference Lab. Please call , press 4; with questions. Specimen Anatomical Collection Method Collection Time Receive d Time (Source) Location / / Volume Laterality Blood specimen 01/21/2012 4:15 PM 012 (specimen) EDT 11:39 AM EDT Resulting Agency Comment Spec In Lab Iraj Keller MD CHEMISTRY ORDERABLES Performing Organization Address City/State/[place] [address] CERNER MILLENNIUM (ABNORMAL) CMP [...] of Diabetes Mellitus, Position Statement from the [place] [employer]. ??Diabete s Care, Volume 33, [...] Organization Address City/State/ZIP Code Phon e Number [place] [phone] CERNER MILLENNIUM (ABNORMAL) CBC [...] MPV 10.9 9.0 - 12.0 CERNER fL [facility] Specimen Anatomical Collection Method Collection Time Receive d Time (Source) Location / / Volume Laterality Blood specimen 01/21/2012 4:15 PM 012 4:25 (specimen) EDT PM EDT Resulting Agency Comment Spec In Lab Iraj Keller MD HEMATOLOGY ORDERABLES Performing Organization Address City/State/ZIP Code Phon e Number [address] [facility] Lipase (01/21/2012 4:15 PM EDT) P athologist Signature Lipase 12 0 - 60 CERNER unit/L [facility] Specimen Anatomical Collection Method Collection Time Receive d Time (Source) Location / / Volume Laterality Blood specimen 01/21/2012 4:15 PM 012 4:25 (specimen) EDT PM EDT Resulting Agency Comment Spec In Lab Iraj Keller MD CHEMISTRY ORDERABLES Performing Organization Address City/[facility]/ZIP Code Phon e Number [address] [facility] Amylase (01/21/2012 4:15 PM EDT) P athologist Signature Amylase 63 28 - 100 CERNER unit/L [facility] Specimen Anatomical Collection Method Collection Time Receive d Time (Source) Location / / Volume Laterality Blood specimen 01/21/2012 4:15 PM 012 4:25 (specimen) EDT PM EDT Resulting Agency Comment Spec In Lab Iraj Keller MD CHEMISTRY ORDERABLES Performing Organization Address City/State/ZIP Code Phon e Number [address] [facility] HIV (01/21/2012 4:15 PM EDT) P athologist Signature HIV 1/2 Ab Negative CERNER MILLENNIUM Specimen Anatomical Collection Method Collection Time Receive d Time (Source) Location / / Volume Laterality Blood specimen 01/21/2012 4:15 PM 012 4:25 (specimen) EDT PM EDT Resulting Agency Comment Spec In Lab Iraj Keller MD IMMUNOLOGY ORDERABLES Performing Organization Address [facility]/ZIP Code Phon e Number [address] CERNER MILLENNIUM (ABNORMAL) C-peptide (01/21/2012 4:15 PM EDT) athologist Signature C-Peptide <0.10 (L) 0.80 - CERNER 3.10 ng/mL [facility] Comment: Test Performed by Alysha Hernandez, My 1% [facility], [address] [place] [address] 2014 08 Sumanth Christiansen M.D., Ph.D., Director of Laboratories , [facility] [id number] Specimen Anatomical Collection Method Collection Time Receive d Time (Source) Location / / Volume Laterality Blood specimen 01/21/2012 4:15 PM 012 8:59 (specimen) EDT AM EDT Resulting Agency Comment Spec In Lab Iraj Keller MD CHEMISTRY ORDERABLES Performing Organization Address City/[facility] Code Phon e Number [address] CERNER MILLENNIUM (ABNORMAL) Herpesvirus 6 Antibody Panel by IFA (01/21/2012 4:15 PM EDT) Analysis Performed At Patho logist Time Signature Herpes 6 IgG 1:160 (H) CERNER MILLENNIUM Comment: Test Performed by: [facility], [employer] [address] [place] [address] Herpes 6 IgM <1:20 CERNER [facility] Comment: Test Performed by: [facility], [employer] [address] [place] [address] Herpes 6 Ab Interp PAST INFECTION CERNER [...] perform ance characteristics have been determined by [facility]. It has not been cleared or approved by the U.S. Food and Drug Administration . The FDA has determined that such clearance or ap proval is not necessary. Performance characteristi cs refer to the analytical performance of the charles t. Test Performed by: [facility], [employer] [address] [place] [id number] Specimen Anatomical Collection Method Collection Time Receive d Time (Source) Location / / Volume Laterality Blood specimen 01/21/2012 4:15 PM 012 8:28 (specimen) EDT AM EDT Resulting Agency Comment Spec In Lab Iraj Keller MD IMMUNOLOGY ORDERABLES Performing Organization Address [facility]/ZIP Code Phon e Number [address] CERNER MILLENNIUM Toxoplasma Antibody, IgG (01/21/2012 4:15 PM EDT) [facility] Method Time Signature Toxoplasma IgG Negative Negative CERNER MILLENNIUM Specimen Anatomical Collection Method Collection Time Receive d Time (Source) Location / / Volume Laterality Blood specimen 01/21/2012 4:15 PM 012 8:44 (specimen) EDT AM EDT Resulting Agency Comment Spec In Lab Iraj Keller MD IMMUNOLOGY ORDERABLES Performing Organization Address [facility]/ZIP [facility] [place] [address] CERNER MILLENNIUM Magnesium (01/21/2012 4:15 PM EDT) P athologist Signature Magnesium 0.78 0.69 - 1.07 CERNER mmol/L MILLENNIUM Specimen Anatomical Collection Method Collection Time Receive d Time (Source) Location / / Volume Laterality Blood specimen 01/21/2012 4:15 PM 012 4:25 (specimen) EDT PM EDT Resulting Agency Comment Spec In Lab Iraj Keller MD CHEMISTRY ORDERABLES Performing Organization Address City/[facility]/ZIP Code Phon e Number [address] CERNER MILLENNIUM Hepatitis B Surface Antibody (01/21/2012 4:15 PM EDT) Analysis Performed At Patho logist Time Signature HepB Surface Positive CERNER Ab [facility] Comment: Expected Results: Vaccinated: Positive Unvaccinated: Negative [...] Keller MD IMMUNOLOGY ORDERABLES Performing Organization Address City/[facility] Code Phon e Number [address] CERNER [facility] Hepatitis B Surface Antigen [...] Keller MD CHEMISTRY ORDERABLES Performing Organization Address City/[facility] [place] [address] CERNER MILLENNIUM documented in this encounter Visit Diagnoses Diagnosis Pancreas disorder - Primary Unspecified disease of pancreas Pancreas disorder Unspecified disease of pancreas documented in this encounter Care Teams Therapeutic Massage Technician Relationship Specialty Start Date End Date Anna Mullen MD PCP - General 12/03/10 [address] [place] [address] documented as of this encounter
--- OUTSIDE RECORDS SUMMARY | 2022-04-04 00:55 | XMS_ITS | Encounter Summary ---
:1965 Author Organization [facility] [place] [address] Care Team Providers Name Role Phone Anna Mullen MD Primary Care Provider Reason for Referral Surgical (Routine) - Cancelled by Ref MD Office Specialty Diagnoses / Procedures Referred By Contact Refer red To Contact Orthopaedic Surgery / Diagnoses HNP (herniated nucleus pulposus) Peri Jurado, Jesus Diana, Orthopaedics CHILD DEVELOPMENT CONSULTANT [facility] [address] [facility] [place] [address] Fax: Referral ID Status Reason Start Expiration Visits Visits Date Date Requested Authorized [id number] Cancelled by Consult & 01/08/2011 07/07/2011 1 1 Ref Office Test Reason for Visit Reason Comments Back Pain Encounter Details Date Type Department Care Team Description 01/08/2011 Follow-Up Spine Center at Peri Jurado, HNP (he rniated nucleus [place] CHILD DEVELOPMENT CONSULTANT pulposus) (Primary Dx) [facility] [place] [address] PAIN CLINIC [phone] [place] [address] (Wo rk) Social History Tobacco Use Types [...] extrusion, resulting in severe canal stenosis and dzre-gu-[id number] bilateral neural foraminal narrowing. Scoli films show [...] myelopathy documented in this encounter Care Teams Kettle Cook Relationship Specialty Start Date End Date Anna Mullen MD PCP - General 12/03/10 [address] [place] [address] documented as of this encounter
--- OUTSIDE RECORDS SUMMARY | 2022-04-04 00:55 | XMS_ITS | Encounter Summary ---
:1965 Author Organization [place] [address] Care Team Providers Name Role Phone Anna Mullen MD Primary Care Provider Reason for Visit Reason Onset Date Comments Medication Refill 10/16/2011 Encounter Details Date Type Department Care Team Description 10/16/2011 Refill Endocrinology at [facility] Divya Hermosillo MD [facility] [place] [address] ENDOCRINOLOGY DEPT. [phone] [place], [place] [address] (Wo rk) Social History Tobacco [...] on filedocumented in this encounter Care Teams R&D Lab Technician Relationship Specialty Start Date End Date Anna Mullen MD PCP - General 12/03/10 [address] [place], [place] [address] documented as of this encounter
--- OUTSIDE RECORDS SUMMARY | 2022-04-04 00:55 | XMS_ITS | Encounter Summary ---
:1965 Author Organization [facility] Address [facility] [place] [address] Care Team Providers Name Role Phone Anna Mullen MD Primary Care Provider Encounter Details Date Type Department Care Team Description 07/21/2011 Surgery Cma Tiffani PittmanLevi Bocanegra CARDIAC CATHETERIZATION [facility] MD [place] [address] CARDIOLOGY DEPT. [phone] [place], [place] [address] (Wo rk) Social History Tobacco [...] by your doctor, do not take any keee-zfm-nfingvn medicines orherbal preparations without first discussing this with your doctor or pharmacist. There is the possibility of side effect and interactions when these are combined. Follow up Care Who to Call with Questions or Problems If there are any questions or problems that you think might be related to your cardiac cath or angioplasty, contact the attendant child activity household refrigeration mechanic by calling [facility] at [phone]. 1. You may have received medication before [...] 0 10/18/2013 tablet mouth 2 times daily. Idanha-3 Fatty Take 5,000 mg by 0 01/08/201109/06 [...] Pre-Procedural H&P Patient Name: Richard Hsu : [id number] y.o. MR#: [id number] Chief Complaint: Chest Pain Planned Procedure: LHC [...] Glucose 137 60 - 199 CERNER mg/dL [facility] Comment: Supplemental ranges: <110 mg/dL before meals <200 mg/dL all other times of the day Specimen Anatomical Collection Method Collection Time Receive d Time (Source) Location / / Volume Laterality Blood specimen 07/21/2011 10:24 11/21/201 1 (specimen) AM EST 10:24 AM EST Raghav Dueñas MD POINT OF CARE TEST ORDERABLE S Performing Organization Address City/State/ZIP Code Phon e Number [address] CERNER MILLENNIUM POCT GLUCOSE [...] CARE TEST ORDERABLE S Performing Organization Address City/[facility]/ZIP Code Phon e Number [address] CERNER MILLENNIUM POCT GLUCOSE [...] Address City/State/ZIP Code Phon e Number [address] CERNER MILLENNIUM documented in [...] - Comment: Rate decreased on arrival in chemical laboratory chief)1000 (Stopped - Provider: Vishnu Lopez, RN) 200 [...] Routine documented in this encounter Care Teams Chemistry Associate Relationship Specialty Start Date End Date Anna Mullen MD PCP - General 12/03/10 [address] [place] [address] documented as of this encounter
--- OUTSIDE RECORDS SUMMARY | 2022-04-04 00:55 | XMS_ITS | Encounter Summary ---
:1965 Author Organization [facility] [place] [address] Care Team Providers Name Role Phone Anna Mullen MD Primary Care Provider Encounter Details Date Type Department Care Team Description 02/19/2011 Orders Only Pain Management at L Richard Waldrop MD [facility] [place] [address] PAIN CLINIC [phone] [place], [place] [address] (Wo rk) Social History Tobacco [...] Organization Address City/State/ZIP Code Phon e Number [facility] [address] [facility] [place] [address] documented in this encounter Visit Diagnoses Not on filedocumented in this encounter Care Teams Manager Actuarial Relationship Specialty Start Date End Date Anna Mullen MD PCP - General 12/03/10 [address] [place] [address] documented as of this encounter
--- OUTSIDE RECORDS SUMMARY | 2022-04-04 00:55 | XMS_ITS | Encounter Summary ---
:1965 Author Organization [facility] [place] [address] Care Team Providers Name Role Phone Anna Mullen MD Primary Care Provider Encounter Details Date Type Department Care Team Description 12/31/2011 Anesthesia Event [place] at [facility] Jameel Harding MD [facility] [place] [address] [facility] Raghav Faye MD [facility] [place] [address] [place] [address] Anesthesia Record Procedure Summary Procedure Name [...] 0645 by Saurabh shah, 08/28/13 1023 by [facility], 1023 MIGUELITO Larson RN PIV 12/31/11; 0818; 08/28/13; 12/31/11 0818 by Geoff shah, 08/28/13 1023 by [facility], 1023 MIGUELITO Segundo RN documented in this [...] reports he had a PALLAVI done at [place] recently, where they found a 0.25cm tumor [...] on filedocumented in this encounter Care Teams Lamp Shade Sewer Relationship Specialty Start Date End Date Anna Mullen MD PCP - General 12/03/10 [address] [place] [address] documented as of this encounter
--- OUTSIDE RECORDS SUMMARY | 2022-04-04 00:55 | XMS_ITS | Encounter Summary ---
:1965 Author Organization [facility] [place] [address] Care Team Providers Name Role Phone Anna Mullen MD Primary Care Provider Encounter Details Date Type Department Care Team Description 02/21/2011 Hospital Encounter Non-Invasive Cardiology CLINIC, DR CONV Lab Tiffani FreemanRafaelWilner Delgadillo MD [facility] [place] [address] [place] [address] Social History Tobacco Use Types Packs/Day [...] 0 10/18/2013 tablet mouth 2 times daily. Reddick-3 Fatty Take 5,000 mg by 0 01/08/201109/06 [...] filedocumented in this encounter Care Teams Sales Program Manager Relationship Specialty Start Date End Date Anna Mullen MD PCP - General 12/03/10 [address] [place] [address] documented as of this encounter
--- OUTSIDE RECORDS SUMMARY | 2022-04-04 00:55 | XMS_ITS | Encounter Summary ---
:1965 Author Organization [facility] [place] [address] Care Team Providers Name Role Phone Anna Mullen MD Primary Care Provider Reason for Referral Surgical (Routine) - Closed Specialty Diagnoses / Procedures Referred By Contact Refer red To Contact General Surgery / Diagnoses Gastroparesis Mauricio Gonsalez MD [facility] Transplant 2m Transplant [facility] GASTROENTEROLOGY [place], [place] DEPT. [address] [place] [address] Referral ID Status Reason Start Date Expiration Date Visits V isits Requested Authorized [id number] Closed Specialty 11/27/2011 05/25/2012 1 1 Service Requested onsultation (Routine) - Duplicate Referral Specialty Diagnoses / Procedures Referred By Contact Refer red To Contact Transplant Diagnoses Gastroparesis GERD (gastroesophageal reflux disease) [facility] Gastro 4l [facility] Transplant 2[place] [address] [place] [address] Referral ID Status Reason Start Expiration Visits Visits Date Date Requested Authorized [id number] Duplicate Consult, 11/27/2011 05/25/2012 1 1 Referral Test & Treat Reason for Visit Reason Comments GI Problem Encounter Details Date Type Department Care Team Description 11/27/2011 [place] [facility] Mauricio Gonsalez, Gastroparesis (Primary Dx); [facility] Unique pham MD GERD (gastroesophageal reflux disease) [place] [address] [facility] [phone] [facility] [place] [address] Social History Tobacco Use Types Packs/Day Years [...] ANNA MULLEN PROVIDER: Mauricio Gonsalez [place] PhD ([id number]) REASON FOR VISIT This is a very [...] had two or three ER visits to [facility]. During these visits, he had a CT [...] who is healthy. 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 HABITS: no tobacco, no alcohol X12 [...] hour solid phase gastric emptying scan, 07/11/2009, [facility]: 39% of material remaining [...] WITH PATIENT Total Minutes: 40 Minutes of Kdif-jl-Nwef Counselin I will see the patient back in followup in six months. Mauricio Gonsalez, PhD, MD data officer Section of Gastroenterology and Hepatology [facility] [address] V: [phone] F: [phone] BEL/balwinder CC/EC: PCP documented in this encounter [...] reflux documented in this encounter Care Teams Director Community Health Nursing Relationship Specialty Start Date End Date Anna Mullen MD PCP - General 12/03/10 [address] [place] [address] documented as of this encounter
--- OUTSIDE RECORDS SUMMARY | 2022-04-04 00:55 | XMS_ITS | Encounter Summary ---
:1965 Author Organization [facility] [place] [address] Care Team Providers Name Role Phone Anna Mullen MD Primary Care Provider Encounter Details Date Type Department Care Team Description 01/21/2012 Hospital Encounter Laboratory Iraj Keller DM type 1 (diabetes mellitus , type 1); [facility] MD Parvin Pancreas disorder [facility] [address] TRANSPLANT [phone] [place] [address] Social History Tobacco Use Types Packs/Day Years [...] 0 10/18/2013 tablet mouth 2 times daily. [place]-3 Fatty Take 5,000 mg by 0 01/08/201109/06 Acids-Vitamin E (FISH OIL) mouth daily. 1,000 mg Cap Acetone, Urine, Test by [facility]Non-Drug; 0 09/02/2013 (ACETONE, URINE, TEST) Combo Route) [...] SCREEN Routine 01/21/2012 3:51 PM Pancreas disorder ([facility]/[place]) EDT documented in this encounter Results DIFFERENTIAL, [...] 0.02 0.00 - 0.05 x10(3)/mcL CER NER [facility] Specimen Anatomical Collection Method Collection Time Receive d Time (Source) Location / / Volume Laterality Blood specimen 01/21/2012 4:15 PM 012 4:25 (specimen) EDT PM EDT Divya Coles MD HEMATOLOGY ORDERABLES Performing Organization Address City/State/ZIP Code Phon e Number [address] [facility] ANTIBODY SCREEN (01/21/2012 4:15 PM EDT) Analysis Performed At [facility] Time Signature Ab Screen Negative [facility] Expires at [id number] [facility] 2358 on: [facility] Specimen Anatomical Collection Method Collection Time Receive d Time (Source) Location / / Volume Laterality Blood specimen 01/21/2012 4:15 PM 012 4:22 (specimen) EDT PM EDT Resulting Agency Comment Spec In Lab Iraj Keller MD BLOOD BANK ORDERABLES Performing Organization Address City/State/ZIP Code Phon e Number [address] [facility] ABO/RH TYPING (01/21/2012 4:15 PM EDT) P athologist Signature ABORh Type O Pos [facility] Specimen Anatomical Collection Method Collection Time Receive d Time (Source) Location / / Volume Laterality Blood specimen 01/21/2012 4:15 PM 012 4:22 (specimen) EDT PM EDT Resulting Agency Comment Spec In Lab Iraj Keller MD BLOOD BANK ORDERABLES Performing Organization Address City/State/[place] [address] CERNER MILLENNIUM (ABNORMAL) Hemoglobin [...] into estimated average glucose values. ??Diabetes Care 2008:31(8):9282-3973. Specimen Anatomical Collection Method Collection Time Receive d Time (Source) Location / / Volume Laterality Blood specimen 01/21/2012 4:15 PM 012 4:25 (specimen) EDT PM EDT Resulting Agency Comment Spec In Lab Iraj Keller MD CHEMISTRY ORDERABLES Performing Organization Address [facility]/ZIP Code Phon e Number [address] [facility] Varicella zoster Antibody, IgG (01/21/2012 4:15 PM EDT) Analysis Performed At Patho logist Time Signature Varicella IgG Positive [facility] Specimen Anatomical Collection Method Collection Time Receive d Time (Source) Location / / Volume Laterality Blood specimen 01/21/2012 4:15 PM 012 8:44 (specimen) EDT AM EDT Resulting Agency Comment Spec In Lab Iraj Keller MD IMMUNOLOGY ORDERABLES Performing Organization Address [facility]/ZIP Code Phon e Number [address] [facility] Hepatitis C Antibody (01/21/2012 4:15 PM EDT) Analysis Performed At Patho logist Time Signature Hepatitis C Ab Negative Negative [facility] Specimen Anatomical Collection Method Collection Time Receive d Time (Source) Location / / Volume Laterality Blood specimen 01/21/2012 4:15 PM 012 4:25 (specimen) EDT PM EDT Resulting Agency Comment Spec In Lab Iraj Keller MD IMMUNOLOGY ORDERABLES Performing Organization Address City/[facility]/ZIP Code Phon e Number [address] [facility] Seth-Myers Virus Antibodies (01/21/2012 4:15 PM EDT) [...] primary infection with EBV. Test Performed by: [place] [address] Boat Ride Operator: Sarita Beach, Ph.D. Specimen Anatomical Collection Method Collection Time Receive d Time (Source) Location / / Volume Laterality Blood specimen 01/21/2012 4:15 PM 012 8:32 (specimen) EDT AM EDT Resulting Agency Comment Spec In Lab Iraj Keller MD IMMUNOLOGY ORDERABLES Performing Organization Address [facility] Code Phon e Number [address] CERNER MILLENNIUM CMV Antibody, IgM (01/21/2012 4:15 PM EDT) P athologist Signature CMV IgM Negative CERNER MILLENNIUM Specimen Anatomical Collection Method Collection Time Receive d Time (Source) Location / / Volume Laterality Blood specimen 01/21/2012 4:15 PM 012 8:44 (specimen) EDT AM EDT Resulting Agency Comment Spec In Lab Iraj Keller MD IMMUNOLOGY ORDERABLES Performing Organization Address [facility] [place] [address] CERNER MILLENNIUM CMV Antibody, IgG (01/21/2012 4:15 PM EDT) athologist Signature CMV IgG Negative CERNER MILLENNIUM Specimen Anatomical Collection Method Collection Time Receive d Time (Source) Location / / Volume Laterality Blood specimen 01/21/2012 4:15 PM 012 8:44 (specimen) EDT AM EDT Resulting Agency Comment Spec In Lab Iraj Keller MD IMMUNOLOGY ORDERABLES Performing Organization Address City/[facility] Phon e Number [address] [facility] Syphilis Antibody, IgG (01/21/2012 4:15 PM EDT) athologist Signature Syphilis IgG Negative Negative CERNER [facility] Specimen Anatomical Collection Method Collection Time Receive d Time (Source) Location / / Volume Laterality Blood specimen 01/21/2012 4:15 PM 012 9:54 (specimen) EDT AM EDT Resulting Agency Comment Spec In Lab Iraj Keller MD IMMUNOLOGY ORDERABLES Performing Organization Address City/[facility] Phon e Number [address] CERNER MILLENNIUM QuantiFERON-TB Gold (01/21/2012 4:15 PM EDT) [facility] Method Time Signature Quantiferon TB [...] IT assay will be performed in the [facility]. Please call [phone], press [phone]; with questions. Specimen Anatomical Collection Method Collection Time Receive d Time (Source) Location / / Volume Laterality Blood specimen 01/21/2012 4:15 PM 012 (specimen) EDT 11:39 AM EDT Resulting Agency Comment Spec In Lab Iraj Keller MD CHEMISTRY ORDERABLES Performing Organization Address City/State/[place] [address] CERNER MILLENNIUM (ABNORMAL) CMP [...] Organization Address City/State/[place] [address] CERNER MILLENNIUM (ABNORMAL) CBC [...] RDWSD 38.5 35.0 - CERNER 46.0 fL [facility] RDWCV 12.1 10.9 - CERNER 14.4 % [facility] MPV 10.9 9.0 - 12.0 CERNER fL [facility] Specimen Anatomical Collection Method Collection Time Receive d Time (Source) Location / / Volume Laterality Blood specimen 01/21/2012 4:15 PM 012 4:25 (specimen) EDT PM EDT Resulting Agency Comment Spec In Lab Iraj Keller MD HEMATOLOGY ORDERABLES Performing Organization Address City/State/ZIP Code Phon e Number [address] [facility] Lipase (01/21/2012 4:15 PM EDT) P athologist Signature Lipase 12 0 - 60 CERNER unit/L [facility] Specimen Anatomical Collection Method Collection Time Receive d Time (Source) Location / / Volume Laterality Blood specimen 01/21/2012 4:15 PM 012 4:25 (specimen) EDT PM EDT Resulting Agency Comment Spec In Lab Iraj Keller MD CHEMISTRY ORDERABLES Performing Organization Address City/State/ZIP Code Phon e Number [address] [facility] Amylase (01/21/2012 4:15 PM EDT) P athologist Signature Amylase 63 28 - 100 CERNER unit/L [facility] Specimen Anatomical Collection Method Collection Time Receive d Time (Source) Location / / Volume Laterality Blood specimen 01/21/2012 4:15 PM 012 4:25 (specimen) EDT PM EDT Resulting Agency Comment Spec In Lab Iraj Keller MD CHEMISTRY ORDERABLES Performing Organization Address City/State/ZIP Code Phon e Number [address] [facility] HIV (01/21/2012 4:15 PM EDT) P athologist Signature HIV 1/2 Ab Negative [facility] Specimen Anatomical Collection Method Collection Time Receive d Time (Source) Location / / Volume Laterality Blood specimen 01/21/2012 4:15 PM 012 4:25 (specimen) EDT PM EDT Resulting Agency Comment Spec In Lab Iraj Keller MD IMMUNOLOGY ORDERABLES Performing Organization Address [facility] Code Phon e Number [address] [facility] C-peptide (01/21/2012 4:15 PM EDT) P athologist Signature C-Peptide <0.10 (L) 0.80 - CERNER 3.10 ng/mL [facility] Comment: Test Performed by [facility], [email or web address] [facility], [address] [place] [address] 2014 08 Sumanth Christiansen M.D., Ph.D., Director of Laboratories , [place] [id number] Specimen Anatomical Collection Method Collection Time Receive d Time (Source) Location / / Volume Laterality Blood specimen 01/21/2012 4:15 PM 012 8:59 (specimen) EDT AM EDT Resulting Agency Comment Spec In Lab Iraj Keller MD CHEMISTRY ORDERABLES Performing Organization Address [facility]/ZIP Code Phon e Number [address] [facility] (ABNORMAL) Herpesvirus 6 Antibody Panel by IFA (01/21/2012 4:15 PM EDT) Analysis Performed At Patho logist Time Signature Herpes 6 IgG 1:160 (H) [facility] Comment: Test Performed by: [facility] [address] [place] [address] Herpes 6 IgM <1:20 [facility] Comment: Test Performed by: [facility]. [address] [place] [address] Herpes 6 Ab Interp PAST INFECTION [facility] Comment: REFERENCE RANGE: ??IgG ??<1:10 ?IgM ??<1:20 [...] perform ance characteristics have been determined by [facility]. It has not been cleared or approved by the U.S. Food and Drug Administration . The FDA has determined that such clearance or ap proval is not necessary. Performance characteristi cs refer to the analytical performance of the charles t. Test Performed by: [facility] [address] [place] [phone] Specimen Anatomical Collection Method Collection Time Receive d Time (Source) Location / / Volume Laterality Blood specimen 01/21/2012 4:15 PM 012 8:28 (specimen) EDT AM EDT Resulting Agency Comment Spec In Lab Iraj Keller MD IMMUNOLOGY ORDERABLES Performing Organization Address City/State/ZIP Code Phon e Number [address] CERNER MILLENNIUM Toxoplasma Antibody, IgG (01/21/2012 4:15 PM EDT) Patholo gist Method Time Signature Toxoplasma IgG Negative Negative CERNER MILLENNIUM Specimen Anatomical Collection Method Collection Time Receive d Time (Source) Location / / Volume Laterality Blood specimen 01/21/2012 4:15 PM 012 8:44 (specimen) EDT AM EDT Resulting Agency Comment Spec In Lab Iraj Keller MD IMMUNOLOGY ORDERABLES Performing Organization Address City/[facility]/ZIP Code Phon e Number [address] CERNER MILLENNIUM Magnesium (01/21/2012 4:15 PM EDT) P athologist Signature Magnesium 0.78 0.69 - 1.07 CERNER mmol/L MILLENNIUM Specimen Anatomical Collection Method Collection Time Receive d Time (Source) Location / / Volume Laterality Blood specimen 01/21/2012 4:15 PM 012 4:25 (specimen) EDT PM EDT Resulting Agency Comment Spec In Lab Iraj Keller MD CHEMISTRY ORDERABLES Performing Organization Address City/[facility]/ZIP Code Phon e Number [address] [facility] Hepatitis B Surface Antibody (01/21/2012 4:15 PM EDT) Analysis Performed At Patho logist Time Signature HepB Surface Positive CERNER Ab [facility] Comment: Expected Results: Vaccinated: Positive Unvaccinated: [...] Keller MD IMMUNOLOGY ORDERABLES Performing Organization Address City/[facility]/ZIP Code Phon e Number [address] [facility] Hepatitis B Surface Antigen (01/21/2012 4:15 PM EDT) Analysis Performed At Path logist Time Signature HepB Surface Negative Negative CERNER Ag [facility] Specimen Anatomical Collection Method Collection Time Receive d Time (Source) Location / / Volume Laterality Blood specimen 01/21/2012 4:15 PM 012 4:25 (specimen) EDT PM EDT Resulting Agency Comment Spec In Lab Iraj Keller MD CHEMISTRY ORDERABLES Performing Organization Address City/[facility]/ZIP Code Phon e Number [address] [facility] documented in this encounter Visit Diagnoses Diagnosis DM type 1 (diabetes mellitus, type 1) Type I (juvenile type) diabetes mellitus without mention of complication, not stated as uncontrolled Pancreas disorder Unspecified disease of pancreas documented in this encounter Care Teams High School Math Teacher Relationship Specialty Start Date End Date Anna Mullen MD PCP - General 12/03/10 [address] [place] [address] documented as of this encounter
--- OUTSIDE RECORDS SUMMARY | 2022-04-04 00:55 | XMS_ITS | Encounter Summary ---
:1965 Author Organization [facility] [place] [address] Care Team Providers Name Role Phone Anna Mullen MD Primary Care Provider Encounter Details Date Type Department Care Team Description 02/21/2011 Hospital Encounter Non-Invasive CAD (cipriano nary artery Cardiology Lab Tiffani disease) [place] [address] Social History Tobacco Use Types Packs/Day [...] 0 10/18/2013 tablet mouth 2 times daily. [place]-3 Fatty Take 5,000 mg by 0 01/08/201109/06 Acids-Vitamin E (FISH OIL) mouth daily. 1,000 mg Cap Acetone, Urine, Test by [facility].(Non-Drug; 0 09/02/2013 (ACETONE, URINE, TEST) Combo Route) [...] AM EDT) P athologist Signature EF 65 [email or web address] SYSTEM Specimen (Source) Anatomical Location Collection Method / Collectio n Time Received Time / Laterality Volume 02/21/2011 Narrative [facility] - 02/21/2011 9:37 AM EDT Procedure: ? Stress Echocardiogram ? Patient: ? VAZQUEZ Guillen ?(Age): 1965(45) Med Rec#: ?[id number] ?Sex: ?M ? Site Loc: ?[facility] ?Ht / Wt: 182(cm)/104(kg) Pt. Loc: ? Echo Lab ?BSA: ?2.25 Study Date: ?02/21/2011 ?Pt. Type: Outpatient Tape: ? Referring: Wilner Reddy [employer] Consultant: Jameel Van Game Breeding Farm Manager: Maryjane Marley MATTEO Interpreting Fellow: Paul Nunez Diagnosis: ??Chest pain (786.50) CPT Code(s): ??Doppler LTD (35892), ??EC G Interpretation (42299), ??Stress Echo (30160), ??Color Doppler (21783), Indication(s): ??Chest Pain Medication(s): ?? Rhythm: Stage [...] ?Normal ?Normal ? Mid-Inferoseptal ?Normal ?Normal ? [place]-Septal ? Normal ?Normal ? [place]-Anterior ? Normal ?Normal ? [place]-Lateral ?Normal ?Normal ? [place]-Inferior ? Normal ?Normal ? [place]-Tip ?Normal ?Normal ? Chambers ?Value ?Units (Range) ? LV EF Est ? 65 ? % (55 to 80) ? Tricuspid/Pulmonic Valves ?Value ?Units (Range) ? TR peak parth ? 2.4 ?m/sec ? This report has been electronically sign ed by: _ Omar Aviles M.D. ? 02/21/2011 09:36:05 Images reviewed and interpretation tyson tamayo [facility] Cardiac Ultrasound Laboratory Procedure Note 02/21/2011 Procedure: Stress Echocardiogram Patient: VAZQUEZ Guillen (Age): [birth year]) Med Rec#: [id number] Sex: M Site Loc: [facility] Ht / Wt: 182(cm)/104(kg) Pt. Loc: Echo Lab BSA: 2.25 Study Date: 02/21/2011 Pt. Type: Outpati ent Tape: Referring: Wilner Reddy [employer] Consultant: Jameel Van [employer] Breeding Farm Manager: Maryjane Marley RDCS Interpreting Fellow: Paul Nunez Diagnosis: Chest pain (786.50) CPT Code(s): Doppler LTD (41890), ECG In terpretation (08738), Stress Echo (30908), Color Doppler (14689), Indication(s): Chest Pain Medication(s): Rhythm: Stage HR [...] channel kody. The patient is taking aspirin. [facility] Other echo and stress findings as noted [...] Normal Mid-Inferior Normal Normal Mid-Inferoseptal Normal Normal [place]-Septal Normal Normal [place]-Anterior Normal Normal [place]-Lateral Normal Normal [place]-Inferior Normal Normal [place]-Tip Normal Normal Chambers Value Units (Range) LV EF Est 65 % (55 to 80) Tricuspid/Pulmonic Valves Value Units (Range) TR peak parth 2.4 m/sec This report has been electronically sign ed by: _ Omar Aviles M.D. 02/21/2011 09:36 :05 Images reviewed and interpretation tyson tamayo [facility] Cardiac Ultrasound Laboratory Wilner Reddy MD ECHO ORDERABLES Performing Organization Address City/State/ZIP Code Phon e Number [facility] documented in this encounter Visit Diagnoses Diagnosis CAD (coronary artery disease) Coronary atherosclerosis of unspecified type of vessel, [place] or graft documented in this encounter Care Teams Business Economist Relationship Specialty Start Date End Date Anna Mullen MD PCP - General 12/03/10 [address] [place] [address] documented as of this encounter
--- OUTSIDE RECORDS SUMMARY | 2022-04-04 00:55 | XMS_ITS | Encounter Summary ---
:1965 Author Organization [facility] [place] [address] Care Team Providers Name Role Phone Anna Mullen MD Primary Care Provider Reason for Visit Reason Comments Follow-up Encounter Details Date Type Department Care Team Description 05/13/2011 Follow-Up Gastroenterology at [facility] Mauricio Gonsalez, Gastroparesis (Primary [facility] Unique pham MD Dx) [place] [address] [place] [address] [facility] [address] Social History Tobacco Use Types Packs/Day Years [...] 05/27/2011 12:53 PM EDT Subjective: Patient ID: Ricahrd Hsu is a 45 y.o. male. HPI Review of Systems Objective: Physical Exam Assessment and Plan: No problem-specific visit notes found for this encounter. Richard Hsu A#: [id number] : 69 GENDER: M PROVIDER: Mauricio Gonsalez MD, PhD ([id number]) REQUESTING PROVIDER(S): PCP: Anna Mullen MD This [...] his own. He then ordered domperidone from [facility] (he had lost our sheet which has patients obtain it from [facility], a confirmed, legitimate source)and he felt that 10 mg twice daily improved symptoms for the first month, but then when he reorderedit it did not improve symptoms. This raises the issue of whether the dose was high enough, or more likely may not have received the actual medication (there are significant problems with drugs obtainedfrom Chika and Ona). On review today, his weight is up [...] patient; the entire visit was spent in [id number] counseling. Patient will follow up with his motor equipment lieutenant and accreditation specialist as scheduled. Mauricio Gonsalez, PhD, MD wagon driller Section of Gastroenterology and Hepatology [facility] [id number] V: [phone] F: [phone] TORIE/balwinder CC/EC: Anna Mullen MD [facility] [address] [place] [address] Divya Coles MD [facility] Endocrinology documented in this encounter Plan of Treatment Not on filedocumented as of this encounter Visit Diagnoses Diagnosis Gastroparesis - Primary documented in this encounter Care Teams Metalizing Machine Operator Relationship Specialty Start Date End Date Anna Mullen MD PCP - General 12/03/10 [address] [place] [address] documented as of this encounter
--- OUTSIDE RECORDS SUMMARY | 2022-04-04 00:55 | XMS_ITS | Encounter Summary ---
:1965 Author Organization [facility] Address [address] [place] [address] Care Team Providers Name Role Phone Anna Mullen MD Primary Care Provider Encounter Details Date Type Department Care Team Description 12/31/2011 Hospital Encounter Same Day Program at Julia Bhakta MD [facility] [address] [address] [place] [address] [phone] (Wo rk) Social History Tobacco Use Types [...] EDT If questions or concerns please call [phone], after 5 PM call [phone] and ask for the GI Doc production consultant. You may have received medication before [...] GI ENDOSCOPY: WHAT TO EXPECT AT HOME (LIBYAN)documented in this encounter Medications at Time of [...] 0 10/18/2013 tablet mouth 2 times daily. [place]-3 Fatty Take 5,000 mg by 0 01/08/201109/06 [...] SURGICAL PATHOLOGY REPORT (12/31/2011 9:41 AM EDT) [facility] Method Time Signature Surgical CERNER Pathology ? [facility] Report ? Provider: ?? CLAYTON BHAKTA ? Pt. Name: ?? REESE NORWOOD ? Acc #: ?[id number] ?Pt. MRN: ?[id number] ? Col Date: ?? 12/31/2011 ?/Sex: ?1965,(46 [...] ? Clinical History/Diagnosis: ? Gastroparesis, GERD ? [facility] ? Provider: ?? CLAYTON BHAKTA ? Pt. Name: ?? REESE NORWOOD ? Acc #: ?[id number] ?Pt. MRN: ?[id number] ? Col Date: ?? 12/31/2011 ?/Sex: ?1965,(46 [...] Organization Address City/State/[place] [address] FARNAZ SWENSON Specimen to [...] MD PATHOLOGY/CYTOLOGY ORDERABLE S Performing Organization Address City/[facility]/ZIP Code Phon mihir Obrien [address] [facility] Specimen to Pathology (surgical or derm) (12/31/2011 9:01 AM EDT) Specimen Anatomical Collection Method Collection Time Receive d Time (Source) Location / / Volume Laterality AP Specimen 12/31/2011 9:01 AM 201 2 9:01 EDT AM EDT Narrative CERNER [facility] - 12/31/2011 9:01 AM E DT Specimen requisition ordered. ??Separate Pathology report to follow Clayton Bhakta MD PATHOLOGY/CYTOLOGY ORDERABLE S Performing Organization Address City/[facility] Phon mihir Obrien [address] [facility] U[facility] GI ENDOSCOPY (12/31/2011 8:12 AM EDT) Component Value Ref Test Analysis Performed At [facility] Range Method Time Signature UPPER GI [facility] PROVATION ENDOSCOPY Endoscopy Patient Name: Reese Hsu ? Procedure Date: 12/31/2011 8:12 AM ? N: [id number] ? Date of : 1965 ? Age: 46 ? Order #: [id number] ? Procedure: ? Upper GI endoscopy Indications: [...] The ? Endoscope was introduced thro [facility] the ? mouth, and advanced to the [facility] ? of duodenum. The patient marrye [...] Active and Recently Administered Medications Care Teams Associate Drafter Relationship Specialty Start Date End Date Anna Mullen MD PCP - General 12/03/10 [address] [place] [address] documented as of this encounter
--- OUTSIDE RECORDS SUMMARY | 2022-04-04 00:56 | XMS_ITS | Encounter Summary ---
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 He is a nonsmoker and nondrinker. Lives in [facility] with his spouse. Family history includes [...] ion, resulting in severe canal stenosis and stvr-qg-wocywaqf bilateral neural fo raminal narrowing. ?? Film [...] n, resulting in severe canal stenosis and rifg-zb-lgcuealw bilateral neural fo raminal narrowing. Film and [...] Organization Address City/State/[place] [address] [facility] documented in this encounter Visit Diagnoses Diagnosis Low back pain - Primary Lumbago Scoliosis Scoliosis (and kyphoscoliosis), idiopath ic Scoliosis Scoliosis (and kyphoscoliosis), idiopath ic Low back pain Lumbago documented in this encounter Care Teams Rigger Supervisor Relationship Specialty Start Date End Date Anna Mullen MD PCP - General 12/03/10 [address] [place] [address] documented as of this encounter
--- OUTSIDE RECORDS SUMMARY | 2022-04-04 00:56 | XMS_ITS | Encounter Summary ---
:1965 Author Organization [facility] [place] [address] Care Team Providers Name Role Phone Anna Mullen MD Primary Care Provider Encounter Details Date Type Department Care Team Description 12/25/2010 Hospital Encounter XRay at [facility], CONV Scoliosis [address] [place] [address] Lamine De La Rosa MD [facility] [place] [address] [place] [address] Social History Tobacco Use Types Packs/Day [...] 2 times daily. URINE ACETONE TEST,STRIPS by SHAPE.(Non-Drug; 0 02/19/2011 (KETOSTIX MISC) Combo Route) route. [...] 10/30/2010 0 01/08/2011 Touch Ultra Test directed, [facility], tests 8 x day CIS Free Text [...] ic documented in this encounter Care Teams Dance Costume Designer Relationship Specialty Start Date End Date Anna Mullen MD PCP - General 12/03/10 [address] [place] [address] documented as of this encounter
--- OUTSIDE RECORDS SUMMARY | 2022-04-04 00:56 | XMS_ITS | Encounter Summary ---
:1965 Author Organization [facility] [place] [address] Care Team Providers Name Role Phone Anna Mullen MD Primary Care Provider Encounter Details Date Type Department Care Team Description 01/02/2011 Hospital Encounter MRI at [facility], CONV Low back pain [facility] Lamine Garcia MD [facility] [place] [address] [place] [address] Social History Tobacco Use Types Packs/Day [...] 2 times daily. URINE ACETONE TEST,STRIPS by seedchange.(Non-Drug; 0 02/19/2011 (KETOSTIX MISC) Combo Route) route. 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 ?? Film [...] n, resulting in severe canal stenosis and ydng-rr-onlddtfp bilateral neural fo raminal narrowing. Film and interpretation reviewed by the attending Lamine Garcia MD IMG MRI ORDERABLES documented in this encounter Visit Diagnoses Diagnosis Low back pain Lumbago documented in this encounter Care Teams Customer Advisor Relationship Specialty Start Date End Date Anna Mullen MD PCP - General 12/03/10 [address] [place] [address] documented as of this encounter
--- OUTSIDE RECORDS SUMMARY | 2022-04-04 00:56 | XMS_ITS | Encounter Summary ---
:1965 Author Organization [facility] [place] [address] Care Team Providers Name Role Phone Kj Beltran MD Primary Care Provider Encounter Details Date Type Department Care Team Description 08/13/2010 Office Visit [facility]opaedics at [facility], [place] [address] Social History Tobacco Use Types Packs/Day Years Used Date Never Assessed Sex Assigned at Date Recorded Male 05/29/2021 11:28 PM EDT documented as of this encounter Plan of Treatment Not on filedocumented as of this encounter Visit Diagnoses Not on filedocumented in this encounter Care Teams Toe Sewer Relationship Specialty Start Date End Date Kj Beltran MD PCP - General 07/23/10 12/02/[address] [place] [address] [place] [address] documented as of this encounter
--- OUTSIDE RECORDS SUMMARY | 2022-04-04 00:56 | XMS_ITS | Encounter Summary ---
:1965 Author Organization [facility] [place] [address] Care Team Providers Name Role Phone Kj Beltran MD Primary Care Provider [phone] Encounter Details Date Type Department Care Team Description 10/30/2010 Office Visit Endocrinology at [facility] Divya Hermosillo, [facility] [place] [address] [facility] [phone] ENDOCRINOLOGY DE PT. [place], [place] [address] (Wo rk) Social History Tobacco [...] (10/30/2010 12:50 PM EST) Analysis Performed At [facility] Time Signature Hemoglobin A1C 8.6 (H) [...] hemoglobinopathies. Additional resources are available on [facility] ADA website: ??http://professional.diabetes.org/gluc osecalculator.aspx Reference: Edinson GRISSOM, Nathaniel J, Ari R, et al. ??Tr anslating the A1C assay into estimated average glucose values. ??Diabetes Care 2008:31(8):8437-3352. Specimen Anatomical Collection Method Collection Time Receive d Time (Source) Location / / Volume Laterality Blood specimen 10/30/2010 12:50 1 (specimen) PM EST 12:58 PM EST Divya Coles MD CHEMISTRY ORDERABLES Performing Organization Address City/State/ZIP [place] [address] [facility] documented in this encounter Visit Diagnoses Not on filedocumented in this encounter Care Teams Bioinformatics Associate Relationship Specialty Start Date End Date Kj Beltran MD PCP - General 07/23/10 12/02/[address] [place] [address] [place] [address] documented as of this encounter
--- OUTSIDE RECORDS SUMMARY | 2022-04-04 00:56 | XMS_ITS | Encounter Summary ---
:1965 Author Organization [facility] [place] [address] Care Team Providers Name Role Phone Kj Beltran MD Primary Care Provider Encounter Details Date Type Department Care Team Description 09/10/2010 Follow-Up Orthopaedics [facility], [place] [address] Social History Tobacco Use Types Packs/Day Years Used Date Never Assessed Sex Assigned at Date Recorded Male 05/29/2021 11:28 PM EDT documented as of this encounter Plan of Treatment Not on filedocumented as of this encounter Visit Diagnoses Not on filedocumented in this encounter Care Teams Lettuce Cutter Relationship Specialty Start Date End Date Kj Beltran MD PCP - General 07/23/10 12/02/[address] [place] [address] [place] [address] documented as of this encounter
--- OUTSIDE RECORDS SUMMARY | 2022-04-04 00:56 | XMS_ITS | Encounter Summary ---
:1965 Author Organization [facility] [place] [address] Care Team Providers Name Role Phone Kj Beltran MD Primary Care Provider [phone] Encounter Details Date Type Department Care Team Description 07/04/2010 Orders Only Lab [facility] Unique pham [place] [address] [place] [address] [phone] (Wo rk) Social History Tobacco Use Types [...] ng/mL CERNER MILLENNIUM Comment: Test Performed by: [place] [address] Religious Leader: Sarita Beach, Ph. D. 25-Hydroxy D3 24 ng/mL [facility] KEONIU Bruce Comment: Test Performed by: [place] [address] Religious Leader: Sarita Beach, Ph. D. 25-OH Vit D Total 24 (L) ng/mL [facility] MILLE NNIUM Comment: Interpretation: 10-24 (mild to moderate deficiency) -- REFERENCE VALUE -- 25-HYDROXY D TOTAL (D2+D3) Optimum levels in the normal population are 25-80 Test Performed by: [place] [address] Religious Leader: Sarita Beach, Ph. D. Specimen Anatomical Collection Method Collection Time Receive d Time (Source) Location / / Volume Laterality Blood specimen 07/04/2010 9:24 AM 010 (specimen) EDT 11:40 AM EDT Una Lassiter APRN CHEMISTRY ORDERABLES Performing Organization Address City/State/[place] [address] [facility] (ABNORMAL) HEMOGLOBIN A1C [...] with hemoglobinopathies. Additional resources are available on [facility] ADA website: ??http://professional.diabetes.org/gluc osecalculator.aspx Reference: Edinson GRISSOM, Nathaniel J, Ari R, et al. ??Tr anslating the A1C assay into estimated average glucose values. ??Diabetes Care 2008:31(8):3498-6962. Specimen Anatomical Collection Method Collection Time Receive d Time (Source) Location / / Volume Laterality Blood specimen 07/04/2010 9:24 AM 010 9:57 (specimen) EDT AM EDT Una Lassiter APRN CHEMISTRY ORDERABLES Performing Organization Address City/State/[place] [address] CERNER MILLENNIUM (ABNORMAL) BASIC [...] Organization Address City/State/[place] [address] [facility]ARNA[facility] HERBERTIUM documented in this encounter Visit Diagnoses Not on filedocumented in this encounter Care Teams Solar Sales Relationship Specialty Start Date End Date Kj Beltran MD PCP - General 07/23/10 12/02/[address] [place] [address] [place] [address] documented as of this encounter
--- OUTSIDE RECORDS SUMMARY | 2022-04-04 00:56 | XMS_ITS | Encounter Summary ---
:1965 Author Organization [facility] [place] [address] Care Team Providers Name Role Phone Anna Mullen MD Primary Care Provider Reason for Visit Reason Onset Date Comments Medication Refill 01/01/2011 Encounter Details Date Type Department Care Team Description 01/01/2011 Refill Endocrinology at [facility] Divya Hermosillo MD [facility] [place] [address] ENDOCRINOLOGY DEPT. [phone] [place], [place] [address] (Wo rk) Social History Tobacco [...] on filedocumented in this encounter Care Teams Pulp Grinder And Blender Relationship Specialty Start Date End Date Anna Mullen MD PCP - General 12/03/10 [address] [place], [place] [address] documented as of this encounter
--- OUTSIDE RECORDS SUMMARY | 2022-04-04 00:56 | XMS_ITS | Encounter Summary ---
:1965 Author Organization [facility] [place] [address] Care Team Providers Name Role Phone Kj Beltran MD Primary Care Provider Encounter Details Date Type Department Care Team Description 08/13/2010 Procedure visit [place] [address] Social History Tobacco Use Types Packs/Day Years Used Date Never Assessed Sex Assigned at Date Recorded Male 05/29/2021 11:28 PM EDT documented as of this encounter Plan of Treatment Not on filedocumented as of this encounter Visit Diagnoses Not on filedocumented in this encounter Care Teams Cisco Engineer Relationship Specialty Start Date End Date Kj Beltran MD PCP - General 07/23/10 12/02/[address] [place] [address] [place] [address] documented as of this encounter
--- OUTSIDE RECORDS SUMMARY | 2022-04-04 00:56 | XMS_ITS | Encounter Summary ---
:1965 Author Organization [facility] [address] Care Team Providers Name Role Phone Kj Beltran MD Primary Care Provider Encounter Details Date Type Department Care Team Description 08/13/2010 Office Visit [place] [facility] Hilario Fortune MD [facility] [place] [address] NEUROLOGY DEPT. [phone] [place], [place] [address] (Wo rk) Social History Tobacco Use Types Packs/Day Years Used Date Never Assessed Sex Assigned at Date Recorded Male 05/29/2021 11:28 PM EDT documented as of this encounter Plan of Treatment Not on filedocumented as of this encounter Visit Diagnoses Not on filedocumented in this encounter Care Teams Document Analyst Relationship Specialty Start Date End Date Kj Beltran MD PCP - General 07/23/10 12/02/[address] [place] [address] [address] [place], [place] [address] documented as of this encounter
--- OUTSIDE RECORDS SUMMARY | 2022-04-04 00:56 | XMS_ITS | Encounter Summary ---
:1965 Author Organization [facility] [place] [address] Care Team Providers Name Role Phone Unavailable Primary Care Provider Unavailable Encounter Details Date Type Department Care Team Description 07/04/2010 Follow-Up Endocrinology at [facility] [address], [facility] [place] [facility] [place] [address] ENDOCRINOLOGY DEPT. [phone] [place], [place] [address] (Wo rk) Social History Tobacco Use Types Packs/Day Years Used Date Never Assessed Sex Assigned at Date Recorded Male 05/29/2021 11:28 PM EDT documented as of this encounter Plan of Treatment Not on filedocumented as of this encounter Visit Diagnoses Not on filedocumented in this encounter
--- OUTSIDE RECORDS SUMMARY | 2022-04-04 00:56 | XMS_ITS | Encounter Summary ---
:1965 Author Organization [facility] [place] [address] Care Team Providers Name Role Phone Anna Mullen MD Primary Care Provider Encounter Details Date Type Department Care Team Description 04/27/2010 Orders Only Neurology at [facility] Geoffrey Martinez MD [facility] [place] [address] NEUROLOGY DEPT. [phone] [place], [place] [address] (Wo rk) Social History Tobacco [...] Volume Laterality 04/27/2010 3:35 PM EDT Narrative [facility] - 02/24/2014 1:35 AM EDT This is a non-reportable exam. Procedure Note Rylan Mccarthy - 02/24/2014Formatting of t his note might be different from the original. This is a non-reportable exam. Geoffrey Martinez MD IMG FILM LIBRARY ORDERABLES Performing Organization Address City/State/ZIP Code [facility] e Number DH RAD DH RAD [address] [facility] [place] [address] documented in this encounter Visit Diagnoses Not on filedocumented in this encounter Care Teams Product Representative Relationship Specialty Start Date End Date Anna Mullen MD PCP - General 12/03/10 [address] [place] [address] documented as of this encounter
--- OUTSIDE RECORDS SUMMARY | 2022-04-04 00:59 | XMS_ITS | Encounter Summary ---
:1965 Author Organization [facility] Address [address] [place] [address] Care Team Providers Name Role Phone Anna Mullen MD Primary Care Provider Reason for Visit Reason Comments Skin Exam FBSE. Spot on L upper thigh Encounter Details Date Type Department Care Team Description 06/24/[address] [facility] Molina Soliz M D History of pancreas transplant ([facility]) (Primary Dx); Dermatology - Main [address] [place] [address] Nevus; [facility] Sun-damaged skin; [address] [place] [address], Sandy Vitiligo; [place] [address] Pavilion, Level 5 Dermatitis [phone] [place] [phone] (Wo rk) Social History Tobacco Use Types [...] Visit Diagnoses Diagnosis History of pancreas transplant ([facility]) (HCC) - Primary 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 Nevus Benign neoplasm of skin, site unspecifie d Sun-damaged skin Other dermatitis due to solar radiation Vitiligo Dermatitis Contact dermatitis and other eczema, due to unspecified cause documented in this encounter Care Teams Tomographic Tech Relationship Specialty Start Date End Date Anna Mullen MD PCP - General 05/18/[address] [place] [address] documented as of this encounter
--- OUTSIDE RECORDS SUMMARY | 2022-04-04 00:59 | XMS_ITS | Encounter Summary ---
:1965 Author Organization [facility] Address [address] [place] [address] Care Team Providers Name Role Phone Unavailable Primary Care Provider Unavailable Encounter Details Date Type Department Care Team Description 02/22/2004 Hospital Encounter [facility] Mendoza, [facility] [address] [facility] [address] [place] [address] [address] [place] [address] (Wo rk) Social History Tobacco Use Types [...] Organization Address City/State/ZIP Code Phon e Number [facility] [address] [facility] [address] [facility] [address] [place], [place] [address] documented in this encounter Visit Diagnoses Not on filedocumented in this encounter
--- OUTSIDE RECORDS SUMMARY | 2022-04-04 00:59 | XMS_ITS | Encounter Summary ---
:1965 Author Organization [facility] Address [address] [place] [address] Care Team Providers Name Role Phone Anna Mullen MD Primary Care Provider Reason for Visit Reason Onset Date Comments Medication Management 07/06/2019 Encounter Details Date Type Department Care Team Description 07/06/2019 Telephone [facility] Molina Soliz M D Medication Management Dermatology - [address], [address] [place], [place] [address] [place] [address] [phone] (Wo rk) Social History Tobacco Use Types Packs/Day Years Used Date Never Smoker Smokeless Tobacco: Never Used Alcohol Use Standard Drinks/Week Comments No 0 (1 standard drink = 0.6 oz pure alcoho l) Sex Assigned at Date Recorded Not on file documented as of this encounter Miscellaneous Notes Telephone Encounter - Mana Lira - 07/06/2019 1609 EST Patient calling regarding prescription for betamethasone dipropionate cream that was due to be called into his pharmacy. Patient was seen on 06/24/19 and this was due to be prescribed at this visit. Please advise. documented in this encounter Plan of Treatment Not on filedocumented as of this encounter Visit Diagnoses Not on filedocumented in this encounter Care Teams Director Global Relationship Specialty Start Date End Date Anna Mullen MD PCP - General 05/18/[address] [place] [phone] documented as of this encounter
--- OUTSIDE RECORDS SUMMARY | 2022-04-04 00:59 | XMS_ITS | Encounter Summary ---
:1965 Author Organization [facility] Address [address] [place] [address] Care Team Providers Name Role Phone Anna Mullen MD Primary Care Provider Encounter Details Date Type Department Care Team Description 11/01/2021 Lab Requisition [facility] Outr Resulting Lab, Pathology & Laboratory Provider [facility] [address] [place], [place] [id number] Social History Tobacco Use Types Packs/Day Years [...] Date/Time Associated Diagnosis Comme nts COVID-19 TEST [facility] Today 10/31/2021 14:15 LAB PCR EST COVID-19 TESTING Routine 10/31/2021 14:15 Results for this EST procedure are i n the results section. documented in this encounter Results COVID-19 TEST [facility] LAB PCR (10/31/2021 14:15 EST) Specimen Swab Performing Organization Address City/State/ZIP Code Phon e Number [facility] [address] [place] [address] SERVICES COVID-19 TESTING (10/31/2021 14:15 EST) COVID-19 rt-PCR Negative Negative [facility] Result Comment: CENTER LABORATORY This [...] performed using the darin SARS-CoV-2 assay ([employer] on the Darin 6800 System Performing Lab Darin [address] [facility] Lab [facility] SERVICES Specimen Swab Performing Organization Address City/State/ZIP Code Phon e Number [facility] [address] [place] [address] SERVICES documented in this encounter Visit Diagnoses Not on filedocumented in this encounter Care Teams Power Truck Driver Relationship Specialty Start Date End Date Anna Mullen MD PCP - General 05/18/[address] [place] [id number] documented as of this encounter
--- OUTSIDE RECORDS SUMMARY | 2022-04-04 00:59 | XMS_ITS | Encounter Summary ---
:1965 Author Organization [facility] Address [address] [place] [address] Care Team Providers Name Role Phone Anna Mullen MD Primary Care Provider Reason for Visit Reason Comments New Patient Visit Skin Exam Consult (Routine) - Authorization Not Required Specialty Diagnoses / Procedures Referred By Contact Refer red To Contact Dermatology Diagnoses Skin exam, screening for cancer Anna Mullen MD [facility] [id number] [place] [address] Fax: Referral ID Status Reason Start Expiration Visits Visits Date Date Requested Authorized [id number] Authorization Not 1 1 Required Encounter Details Date Type Department Care Team Description 06/21/2018 Office Visit [facility] Molina Soliz M D Actinic keratoses (Primary Dx); Dermatology - Main [address] [place] [address] Sun-dam aged skin; [address] [address] [address], [place] [address] (Wo rk) Social History Tobacco Use Types Packs/Day Years Used Date Never Smoker Smokeless Tobacco: Never Used Alcohol Use Standard Drinks/Week Comments No 0 (1 standard drink = 0.6 oz pure alcoho l) Sex Assigned at Date Recorded Not on file documented as of this encounter Patient Instructions Patient InstructionsMolina Soliz MD - 06/21/2018 9:30 EDT WOUND CARE INSTRUCTIONS FOR CRYOSURGERY The area you had treated with liquid nitrogen therapy may swell, blister and throb for 24 hours. Youmay see blood in the blisters. If the blisters open, apply Vaseline/petroleum jelly until the area has healed. We do not recommend the use of triple antibiotic ointment or other ointments as they can cause allergic reactions. Any scabs that form should fall off within 14-21 days. CONTACT THE OFFICE IF YOU EXPERIENCE: ?? increasing redness ?? warmth to touch ?? increasing pain ?? drainage with a foul odor ?? rapid swelling of the wound ?? fever or chills Please call our office or . documented in this encounter Progress Notes Molina Soliz MD - 06/21/2018 7905 EDT Dermatology Outpatient Visit Note Chief Complaint Patient presents with ??? New Patient Visit ??? Skin Exam Dermatologic History: History of pancreas transplant- 2012. On prograf and CellCept Last Dermatology office visit: 09/07/2014 (seen at [facility]) SUBJECTIVE Mr. Hsu is a 52 y.o. male who presents for new evaluation and treatment for FBSE. He has a history of a pancreas transplant and is currently taking prograf and CellCept. He denies a personal history of skin cancer. He is concerned regarding an itching lesion on the right upper forehead, which has been present for about 6 months. It does not bleed. He has applied otc hydrocortisone whichtemporarily helped. He is otherwise feeling well and has [...] medication list which includes the following prescription(s): aspirin chewable, gabapentin, levothyroxine, lisinopril, multivitamin, mycophenolate, pantoprazole, tacrolimus, and venlafaxine. He is allergic to nexium [esomeprazole [...] with the addition of the following comments: There are 2 erythematous gritty papules on the upper forehead. There are multiple brown macules and soft brown papules on the trunk and extremities c/w nevi There are hypopigmented to depigmented patches on the right arm and upper back. Patches on the rightarm have areas of perifollicular pigmentation. There are brown macules on photodistributed regions on the arms. ASSESSMENT/PLAN 1. Actinic keratoses Precancerous etiology discussed. Given the risk for actinic keratoses to progress to squamous cell carcinomas, recommend treatment with liquid nitrogen cryosurgery today. See procedure note below. The patient will return if lesion fails to fully resolve. ?? Sun protective measured discussed. Encouraged daily sunscreen use. 2. Nevus ?? No suspicious features on exam. No treatment unless there would be changes. 3. Sun-damaged skin ?? The nature of sun-induced photo-aging and skin cancers is discussed. Sun avoidance, protective clothing, and the use of 30-SPF sunscreens is advised. Observe closely for skin damage/changes, and call if such occurs. 4. Vitiligo ?? Discussed importance of sunscreen use over the area ?? Patient did not wish to treat lesions as they did not bother him ?? Explained that lesions can expand and can offer treatment again pending clinical re-evaluation. He will f/u 6 months or in the interim should problems arise. CRYOSURGERY PROCEDURE NOTE PATIENT INFORMATION: Richard Hsu : MRN: [id number] PROVIDER: Molina Soliz MD The indication, risks, benefits and alternatives to this procedure were discussed in detail with thepatient and questions were answered. The below noted lesions were then destroyed with liquid nitrogen cryosurgery using two freeze- thaw cycles. The expected healing course was discussed, and it was noted that sometimes lesions do not fully resolve, and cryosurgery can cause a white spot or a scar. Verbal wound care instructions were given. SITE/LESION TYPE/DIAGNOSIS: Lesion(s) A: Location: right upper forehead Lesion Type/Diagnosis: 2 actinic keratosis(es) Molina Soliz MD 06/21/2018 9:18 arcie Garcia. - 06/21/2018 0930 EDT Review of Systems Constitutional: Negative for [...] sleep disturbance. The patient is not nervous/anxious. All other systems reviewed and are negative. documented in this encounter Plan of Treatment Not on filedocumented as of this encounter Visit Diagnoses Diagnosis Actinic keratoses - Primary Actinic keratosis Sun-damaged skin Other dermatitis due to solar radiation Nevus Benign neoplasm of skin, site unspecifie d documented in this encounter Historical Medications This list may reflect changes made after this encounter. Medication Sig Dispensed Refills Start Date End Date MULTI-VITAMIN ORAL Take 2 Tabs by mouth 0 daily. lisinopril (PRINIVIL, Take 60 mg by mouth 0 ZESTRIL) 30 mg tablet 2 times daily. venlafaxine (EFFEXOR-XR) Take 150 mg by mouth 0 150 mg XR capsule daily. 225mg daily levothyroxine (SYNTHROID) Take 150 mcg by 0 150 mcg tablet mouth daily. aspirin chewable 81 mg Take 81 mg by mouth 0 tablet daily. gabapentin (NEURONTIN) 300 Take 300 mg by mouth 0 mg capsule 3 times daily. 300 mg in Am, 600 mg with dinner, and 300 at bedtime. 5 tablets a day Pantoprazole (PROTONIX) 40 Take 40 mg by mouth [address] for susp in 2 times daily. packet tacrolimus (PROGRAF) 1 mg Take 2 mg by mouth 2 0 capsule times daily. mycophenolate (CELLCEPT) Take 500 mg by mouth 0 250 mg capsule 2 times daily. added in this encounter Care Teams Desktop Publishing Associate Relationship Specialty Start Date End Date Anna Mullen MD PCP - General 05/18/18 [address] [place] [address] documented as of this encounter
--- OUTSIDE RECORDS SUMMARY | 2022-04-04 00:59 | XMS_ITS | Encounter Summary ---
:1965 Author Organization [facility] Address [address] [place] [address] Care Team Providers Name Role Phone Anna Mullen MD Primary Care Provider Encounter Details Date Type Department Care Team Description 03/14/2022 Lab Requisition [facility] Outr Resulting Lab, Pathology & Laboratory Provider [facility] [address] [place], [place] [id number] Social History Tobacco Use Types Packs/Day Years Used Date Never Smoker Smokeless Tobacco: Never Used Alcohol Use Standard Drinks/Week Comments No 0 (1 standard drink = 0.6 oz pure alcoho l) Sex Assigned at Date Recorded Not on file documented as of this encounter Plan of Treatment Not on filedocumented as of this encounter Procedures Procedure Name Priority Date/Time Associated Diagnosis Comme nts FUNGAL Routine 03/13/2022 13:25 Results for this CULTURE/SMEAR, EDT procedure are in SKIN, HAIR OR NAIL the resul ts section. documented in this encounter Results FUNGAL CULTURE/SMEAR, SKIN, HAIR OR NAIL (03/13/2022 13:25 EDT) Pathologist Sig nature Organism ID See new order [facility] placed, Fungus LABORATORY SERVICES Culture/Smear (FCS). Charges credited from this order. Specimen Skin - Skin (tissue) specimen (specimen) Performing Organization Address City/State/ZIP Code Phon e Number [facility] [address] [place] [address] SERVICES documented in this encounter Visit Diagnoses Not on filedocumented in this encounter Care Teams Reports Developer Relationship Specialty Start Date End Date Anna Mullen MD PCP - General 05/18/[address] [place] [address] documented as of this encounter
--- OUTSIDE RECORDS SUMMARY | 2022-04-04 00:59 | XMS_ITS | Encounter Summary ---
:1965 Author Organization [facility] Address [address] [place] [address] Care Team Providers Name Role Phone Anna Mullen MD Primary Care Provider Encounter Details Date Type Department Care Team Description 07/16/2019 Lab Requisition [facility] Unknown, Provider, Pathology & Laboratory [facility] [address] [place] [address] [place], [place] [address] Social History Tobacco Use Types Packs/Day Years [...] 9:45 EST) PSA 0.5 0.0 - 3.5 [facility] Comment: ng/mL LABORATORY SERVICES NOTE: Serum PSA concentration shou ld not be interpreted as absolute evidence for the presence or absence of malignant disease. Assayed on Siemens ADVIA Marko taur XPT using chemiluminescent technology. ??Values obtained by using different assay methods cannot be used interchangeably. Specimen Blood - Venous blood (substance) Performing Organization Address City/State/ZIP Code Phon e Number [facility] [address] [place] [address] SERVICES documented in this encounter Visit Diagnoses Not on filedocumented in this encounter Care Teams Audio Tape Librarian Relationship Specialty Start Date End Date Anna Mullen MD PCP - General 05/18/18 [address] [place] [address] documented as of this encounter
--- OUTSIDE RECORDS SUMMARY | 2022-04-04 00:59 | XMS_ITS | Encounter Summary ---
:1965 Author Organization [facility] Address [address] [place] [address] Care Team Providers Name Role Phone Anna Mullen MD Primary Care Provider Reason for Visit Reason Comments Other Encounter Details Date Type Department Care Team Description 10/10/2019 Refill [facility] Molina Soliz M D Other Dermatology - Main C ampus [address] [address] [place] [address] (Wo rk) Social History [...] APPLY TO LEGS TWICE 90 g 2 10/10/2019 12/09/2019 (DIPROLENE) 0.05 % cream A DAY FOR 2 WEEK, THEN DAILY FOR 2 WEEK,THEN EVERY OTHER DAY NEEDED (AVOID FACE, GROIN OR SKIN FOLDS) documented in this encounter Plan of Treatment Not on filedocumented as of this encounter Visit Diagnoses Not on filedocumented in this encounter Discontinued Medications Medication Sig Discontinue Reason Start Date End Date betamethasone dipropionate Apply to legs 07/08/2019 10/10/2019 (DIPROLENE) 0.05 % cream twice [id number], then daily x2wks then every other day as needed. Avoid face groin or skin folds documented as of this encounter Care Teams Piece Dyer Relationship Specialty Start Date End Date Anna Mullen MD PCP - General 05/18/18 [address] [place] [address] documented as of this encounter
--- OUTSIDE RECORDS SUMMARY | 2022-04-04 00:59 | XMS_ITS | Encounter Summary ---
:1965 Author Organization [facility] Address [address] [place] [address] Care Team Providers Name Role Phone Unavailable Primary Care Provider Unavailable Encounter Details Date Type Department Care Team Description 05/30/2003 Results Only [facility] - Zan Marie MD conversion [address] [place] [address] Social History Tobacco Use Types Packs/Day Years [...] ? REESE HSU ? Accession #: ? [id number] : ? 1965 (Age: 37) ??M ?Collect Date: ? 05/03 Location: ? [facility] ? Receive Date : ? 06/01/2003 Provider: ? ZAN HANEY MD Copy to: ? CYTOLOGIC DIAGNOSIS: ? Urine, voided, cytologic evaluation: - No malignant cells identified; sparse cellular mater ial. Document reviewed and electronically signed by: ? CHEMA DARNELL MD [facility] Report Date: ??06/02/2003 16:02 By the signature [...] Organization Address City/State/ZIP Code Phon e Number [facility] [address] [place] [address] SERVICES [facility] [address] [place] [address] documented in this encounter Visit Diagnoses Not on filedocumented in this encounter
--- OUTSIDE RECORDS SUMMARY | 2022-04-04 00:59 | XMS_ITS | Encounter Summary ---
:1965 Author Organization [facility] Address [address] [place] [address] Care Team Providers Name Role Phone Anna Mullen MD Primary Care Provider Reason for Visit Reason Comments Follow-up spot on scalp Encounter Details Date Type Department Care Team Description 04/24/2020 Office Visit [facility] Molina Soliz M D Neoplasm of uncertain behavior of skin ( Primary Dx); Dermatology - Main [address] [place] [address] History of pancreas transplant (HCC-CMS); [facility] Sun-damaged skin; [address] [place] [address] Multiple benign nevi; [place] [address] Pavilion, Level 5 Vitiligo; [phone] [place], [place] Arthropod bit e, sequela [address] (Wo [...] small areas of hemorrhagic crust R wolf: [employer] papule with telangiectasia ASSESSMENT & PLAN: 1. [...] PATIENT INFORMATION: Richard Hsu : MRN: [id number] SURGEON: Molina Bingham MD; Edinson Garay MD [...] the entire procedure. Molina Soliz MD Dermatology [facility] documented in this encounter Miscellaneous Notes Result [...] A. SKIN OF WOLF, RIGHT, SHAVE BIOPSY: [facility] - Dermatofibroma. [facility] LAB[facility] SERVICES Attestation By the signature [facility] Electronica lly below, the attending [...] diagnosis. Clinical History R wolf: 3mm pink [facility] papule with CENTER telangiectasia; R/O LABORATORY BCC vs DF vs other SERVICES Gross Description A. [facility] Received in formalin camron d with proper patient identification (initials C, R) and R wolf is a ramos-white skin shave biopsy measuring 0.8 x 0.7 x 0.1 cm. Inked, trisected and submitted entirely in A1. [facility] Mary Contreras 04/24/2020 17:42 SERVICES Performing Lab [facility] Scanned Images [facility] Specimen Tissue - Skin (tissue) specimen (specime n) Performing Organization Address City/State/ZIP Code Phon e Number [facility] [address] [place] [address] SERVICES documented in this encounter Visit Diagnoses [...] ORAL) added in this encounter Care Teams Wick Tender Relationship Specialty Start Date End Date Anna Mullen MD PCP - General 05/18/[address] [place] [address] documented as of this encounter
--- OUTSIDE RECORDS SUMMARY | 2022-04-04 00:59 | XMS_ITS | Encounter Summary ---
:1965 Author Organization [facility] Address [address] [place] [address] Care Team Providers Name Role Phone Anna Mullen MD Primary Care Provider Reason for Visit Reason Comments Other Encounter Details Date Type Department Care Team Description 12/09/2019 Refill [facility] Molina Soliz M D Other Dermatology - Main ampus [address] [address] [place] [address] (Wo rk) Social History [...] documented as of this encounter Care Teams Real Estate Firm Manager Relationship Specialty Start Date End Date Anna Mullen MD PCP - General 05/18/[address] [place] [address] documented as of this encounter
--- OUTSIDE RECORDS SUMMARY | 2022-04-04 00:59 | XMS_ITS | Encounter Summary ---
:1965 Author Organization [facility] Address [address] [place] [address] Care Team Providers Name Role Phone Anna Mullen MD Primary Care Provider Encounter Details Date Type Department Care Team Description 03/23/2021 Lab Requisition [facility] Outr Resulting Lab, Pathology & Laboratory Provider [facility] [address] [place], [place] [address] Social History Tobacco Use Types Packs/Day Years [...] Pathologist Sig nature Lyme Ab Negative Negative [facility] SERVICES Specimen Blood - Venous blood (substance) Performing Organization Address City/State/ZIP Code Phon e Number [facility] [address] [place] [address] SERVICES documented in this encounter Visit Diagnoses Not on filedocumented in this encounter Care Teams Wrapper Opener Relationship Specialty Start Date End Date Anna Mullen MD PCP - General 05/18/18 [address] [place], [place] [address] documented as of this encounter
--- OUTSIDE RECORDS SUMMARY | 2022-04-04 00:59 | XMS_ITS | Encounter Summary ---
:1965 Author Organization [facility] Address [address] [place] [address] Care Team Providers Name Role Phone Anna Mullen MD Primary Care Provider Encounter Details Date Type Department Care Team Description 07/08/2019 Orders Only [facility] Molina Soliz M D Dermatology - [facility] [address] [address] [address], [place] [phone] (Wo rk) Social History Tobacco Use Types [...] 2 201810/10/2019 (DIPROLENE) 0.05 % cream twice [id number], then daily x2wks then every other day as needed. Avoid face groin or skin folds documented in this encounter Plan of Treatment Not on filedocumented as of this encounter Visit Diagnoses Not on filedocumented in this encounter Care Teams Incinerator Attendant Relationship Specialty Start Date End Date Anna Mullen MD PCP - General 05/18/18 [address] [place] [address] documented as of this encounter
--- OUTSIDE RECORDS SUMMARY | 2022-04-04 00:59 | XMS_ITS | Encounter Summary ---
:1965 Author Organization [facility] Address [address] [place] [address] Care Team Providers Name Role Phone Anna Mullen MD Primary Care Provider Encounter Details Date Type Department Care Team Description 04/18/2019 Results Only [facility] Renny Smith, [address] [place] [address] [address] [place], [place] [id number] (Wo rk) Social History Tobacco Use Types [...] Procedure Name Priority Date/Time Associated Diagnosis Comme [facility] SURGICAL PATHOLOGY Routine 04/18/2019 16:08 Resul ts for this EDT procedure are i n the results section. documented in this encounter Results SURGICAL PATHOLOGY (04/18/2019 16:08 EDT) Pathology Report: SURGICAL PATHOLOGY REPORT [facility] Reports generated via electronic interface contain debra ginal data; LABORATORY however they are lacking the format of the original re port. SERVICES Caution should be taken when reading/interpreting unfo rmatted reports. Name: ? REESE HSU ? Accession #: ? [id number] ? : ? 1965 (Age: [age]) ??M ? Collect Date: ? 04/18/2019 ? Location: ? [facility] ? Receive Date: ? 04/18/20 19 ? Provider: RENNY RAMON MD Copy to: ANNA MULLEN MD ? Final Pathologic Diagnosis: COLON, ASCENDING, POLYP, BIOPSY: - Tubular adenoma. Document reviewed and electronically signed by: GINO PATEL MD Report ??Date: 04/19/2019 12:40 By the signature above, the attending physician certif ies that he/she has personally conducted a gross and/or microscopic examin ation of the described specimens and rendered or confirmed the above diagnosi s. Specimen(s) Received: Ascending colon polyp Clinical History: Screening for colon cancer Gross Description: ? Received in formalin labelled with proper patient identification (initials C, R) and ascending colon polyp are tw o fragments of tissue measuring 0.3 cm and 0.4 cm greatest dimension. The specimens are submi tted entirely in 1. MATT Sierra (ASCP) 04/18/2019 4:39 PM End of Report Specimen Performing Organization Address City/State/ZIP Code Phon e Number [facility] [address] [place] [address] SERVICES documented in this encounter Visit Diagnoses Not on filedocumented in this encounter Care Teams Social Service Director Relationship Specialty Start Date End Date Anna Mullen MD PCP - General 05/18/18 [address] [place] [address] documented as of this encounter
--- OUTSIDE RECORDS SUMMARY | 2022-04-04 00:59 | XMS_ITS | Encounter Summary ---
:[address] [facility] Address [address] [place] [address] Care Team Providers Name Role Phone Anna Mullen MD Primary Care Provider Reason for Visit Reason Comments Other Encounter Details Date Type Department Care Team Description 04/22/2020 Refill [facility] Molina Soliz M D Other Dermatology - Main ampus [address] [address] [place] [address] (Wo rk) Social History [...] documented as of this encounter Care Teams Civil Cad Tech Relationship Specialty Start Date End Date Anna Mullen MD PCP - General 05/18/[address] [place] [address] documented as of this encounter
--- OUTSIDE RECORDS SUMMARY | 2022-04-04 00:59 | XMS_ITS | Encounter Summary ---
:1965 Author Organization Health system Address [address] [place] [address] Care Team Providers Name Role Phone Anna Mullen MD Primary Care Provider Encounter Details Date Type Department Care Team Description 04/25/2019 Hospital Encounter [facility] Unknown, Provider, [facility] [address] [facility] [phone] [place] [address] (Work) [phone] Social History Tobacco Use Types Packs/Day Years [...] Code Departure Means Destination Home or Self Prison documented in this encounter Plan of Treatment Not on filedocumented as of this encounter Visit Diagnoses Not on filedocumented in this encounter Care Teams Radius Grinder Relationship Specialty Start Date End Date Anna Mullen MD PCP - General 05/18/[address] [place] [address] documented as of this encounter
--- OUTSIDE RECORDS SUMMARY | 2022-04-04 00:59 | XMS_ITS | Clinical Summary ---
:1965 Author Organization [facility] Address [address] [place] [address] Care Team Providers Name Role Phone Anna [...] Encounters Date Type Specialty Care Team Description 03/17/2022 Lab Requisition Clinical Laboratory Outr Resulting Lab , Provider 03/14/2022 Lab Requisition Clinical Laboratory Outr Resulting Lab , Provider 03/12/2022 Lab Requisition Clinical Laboratory Outr Resulting Lab , Provider from Last 3 Months Surgical History Surgery Date Site/Laterality Comments APPENDECTOMY BACK SURGERY Medical History Medical History Date Comments Arthritis Heart murmur Cerebral artery occlusion with cerebral infarction ([facility]) (HCC) Hypertension Thyroid disease Family History Medical [...] Comments Hepatitis C Screen 1965 COVID-19 Vaccine (#1) 1972 Procedures Procedure Name Priority Date/Time Associated Diagnosis Comme nts FUNGUS Routine 03/13/2022 13:25 Results for this CULTURE/SMEAR EDT procedure are in the results section. FUNGAL Routine 03/13/2022 13:25 Results for this CULTURE/SMEAR, EDT procedure are in SKIN, HAIR OR NAIL the resul ts section. COVID-19 TEST [facility] Today 03/11/2022 23:24 LAB PCR EDT COVID-19 TESTING Routine 03/11/2022 23:24 Results for this EDT procedure are i n the results section. from Last 3 Months Results FUNGAL CULTURE/SMEAR, SKIN, HAIR OR NAIL (03/13/2022 13:25 EDT) Pathologist Sig nature Organism ID See [facility] placed, Fungus LABORATORY SERVICES Culture/Smear (FCS). Charges credited from this order. Specimen Skin - Skin (tissue) specimen (specimen) Performing Organization Address [facility] Phon e Number [facility] [address] [place] [address] SERVICES FUNGUS CULTURE/SMEAR (03/13/2022 13:25 EDT) Pathologist Sig nature Organism ID No fungi isolated [facility] Fungal Smear No Fungi Seen [facility] SERVICES Specimen Swab - Entire ear (body structure) Performing Organization Address [facility] Phon e Number [facility] [address] [place] [address] SERVICES COVID-19 TEST [facility] LAB PCR (03/11/2022 23:24 EDT) Specimen Swab Performing Organization Address [facility] Phon e Number [facility] [address] [place] [address] SERVICES COVID-19 TESTING (03/11/2022 23:24 EDT) COVID-19 rt-PCR Negative Negative [facility] Result Comment: [facility] This test has not been FDA [...] was performed using the darin SARS-CoV-2 assay ([employer] on the Darin 6800 System Performing Lab Darin 6800 [facility] Lab [facility] SERVICES Specimen Swab Performing Organization Address [facility] Phon e Number [facility] [address] [place] [phone] SERVICES from Last 3 Months Insurance Payer Benefit Plan / Subscriber ID Effective Phone Address T ype Group Dates [facility] [id number] 2018-Prese [phone] [address] [facility] [employer] nt [address] [place] [address] ShellycrystalRichard Wilmer Personal/Family Self 1965 [address] [phone] [facility] , ([place]) [place] [address] ShellycrystalRichard Wilmer Personal/Family Self 1965 [address] [phone] [facility] , ([place]) [place] [address] ChrisjamieRichard Guillen Personal/Family Self 1965 [address] [phone] [facility] , ([place]) [place] [address] ChrisjamieRichard Guillen Personal/Family Self 1965 [address] [phone] [facility] , ([place]) [place] [address] AracelisRichard Wilmer Personal/Family Self 1965 [address] [phone] [facility] , ([place]) [place] [address] AracelisRichard Wilmer Personal/Family Self 1965 [address] [phone] [facility] , ([place]) [place] [address] AracelisRichard Wilmer Personal/Family Self 1965 [address] [phone] [facility] ([place]) [place] [address] Care Teams Die Cutting Machine Operator Relationship Specialty Start Date End Date Anna Mullen MD PCP - General 05/18/18 [address] [place], [place] [id number]
--- OUTSIDE RECORDS SUMMARY | 2022-04-04 00:59 | XMS_ITS | Encounter Summary ---
:1965 Author Organization [facility] Address [address] [place] [address] Care Team Providers Name Role Phone Anna Mullen MD Primary Care Provider Reason for Visit Reason Comments Other Encounter Details Date Type Department Care Team Description 10/11/2019 Refill [facility] Molina Soliz M D Other Dermatology - Main [facility] [address] [address] [place] [phone] (Wo rk) Social History Tobacco Use Types [...] filedocumented in this encounter Care Teams Business Intelligence Analyst Relationship Specialty Start Date End Date Anna Mullen MD PCP - General 05/18/[address] [place] [phone] documented as of this encounter
--- OUTSIDE RECORDS SUMMARY | 2022-04-04 00:59 | XMS_ITS | Encounter Summary ---
:[address] [facility] Address [address] [place] [address] Care Team Providers Name Role Phone Anna Mullen MD Primary Care Provider Encounter Details Date Type Department Care Team Description 03/12/2022 Lab Requisition [facility] Outr Resulting Lab, Pathology & Laboratory Provider [facility] [address] [place], [place] [phone] Social History Tobacco Use Types Packs/Day Years [...] TEST [facility] Today 03/11/2022 23:24 LAB PCR EDT COVID-19 TESTING Routine 03/11/2022 23:24 Results for this EDT procedure are i n the results section. documented in this encounter Results COVID-19 TEST [facility] LAB PCR (03/11/2022 23:24 EDT) Specimen Swab Performing Organization Address City/State/ZIP Code Phon e Number [facility] [address] [place] [address] SERVICES COVID-19 TESTING (03/11/2022 23:24 EDT) COVID-19 rt-PCR Negative Negative [facility] Result Comment: CENTER [...] performed using the darin SARS-CoV-2 assay ([employer] on the Darin 6800 System Performing Lab Darin 68[address] [facility] Lab [facility] SERVICES Specimen Swab Performing Organization Address City/State/ZIP Code Phon e Number [facility] [address] [place] [address] SERVICES documented in this encounter Visit Diagnoses Not on filedocumented in this encounter Care Teams Fishing Rod Trimmer Relationship Specialty Start Date End Date Anna Mullen MD PCP - General 05/18/[address] [place] [phone] documented as of this encounter
--- OUTSIDE RECORDS SUMMARY | 2022-04-04 00:59 | XMS_ITS | Encounter Summary ---
:1965 Author Organization [facility] Address [address] [place] [address] Care Team Providers Name Role Phone Anna Mullen MD Primary Care Provider Reason for Visit Reason Comments Follow-up Skin Exam FBSE spot on the right side of nose Encounter Details Date Type Department Care Team Description 12/21/2018 Office Visit [facility] Prabhjot Soliz M D Neoplasm of uncertain behavior of skin ( Primary Dx); Dermatology - [address] Sun-dam aged skin; [facility]; [address] [place] [address], [place] Viral warts, unspecified typ e; [place] [address] Pavilion, Level 5 Vitiligo [phone] [place] [address] (Wo rk) Social History Tobacco [...] documented in this encounter Patient Instructions Patient InstructionsGoPrabhjot peña MD - 12/21/2018 8:30 EDT WOUND CARE INSTRUCTIONS FOR SKIN BIOPSY The DRESSING/BANDAID should remain in place for 24 hours. You may shower or bathe after 24 hours; remove the bandage and replace it after the shower. DISCOMFORT: Extra-Strength Tylenol, as directed by optical effects camera operator, usually relieves any pain you may have. [...] Try to schedule your outdoor activities for first aid instructor or early evening. ?? Make clothing a [...] for sun protective clothing and hats: ?? http://www.[employer] Shelf.Treater ?? http://www.[employer].Treater ?? http://www.Pav[employer].Treater documented in this encounter Discharge Disposition Disposition [...] PATIENT INFORMATION: Reese Hsu : MRN: [id number] SURGEON: Prabhjot Soliz MD The indication, risks, [...] 10:53 EDT) Pathology Report: SURGICAL PATHOLOGY REPORT [facility] Reports generated via electronic interface contain debra ginal data; LABORATORY however they are lacking the format of the original re port. SERVICES Caution should be taken when reading/interpreting unfo rmatted reports. Name: ? REESE HSU ? Accession #: ? [id number] ? : ? 1965 (Age: 7 1) [...] Number [facility] [address] [place] [phone] SERVICES documented in this encounter Visit Diagnoses [...] daily. added in this encounter Care Teams Manufacturing Process Technician Relationship Specialty Start Date End Date Anna Mullen MD PCP - General 05/18/[address] [place] [phone] documented as of this encounter
--- OUTSIDE RECORDS SUMMARY | 2022-04-04 00:59 | XMS_ITS | Encounter Summary ---
:1965 Author Organization [facility] Address [address] [place] [address] Care Team Providers Name Role Phone Anna Mullen MD Primary Care Provider Encounter Details Date Type Department Care Team Description 11/27/2019 Lab Requisition [facility] Unknown, Provider, Pathology & Laboratory [facility] [address] [facility] [place] [address] Social History Tobacco Use Types Packs/Day Years [...] (11/26/2019 9:53 EDT) Tacrolimus 7.2 See Note [facility] Comment: ng/mL LABORATORY SERVICES NOTE: Therapeutic range is dependent on the clinical situati on. Assayed utilizing Fermin Emily miluminescent technology. ??Values obtained using different assay methods cannot be used interchangeably. Specimen Blood - Venous blood (substance) Performing Organization Address City/State/ZIP Code Phon e Number [facility] [address] [place] [address] SERVICES documented in this encounter Visit Diagnoses Not on filedocumented in this encounter Care Teams Telephone Service Representative Relationship Specialty Start Date End Date Anna Mullen MD PCP - General 05/18/[address] [place] [phone] documented as of this encounter
--- OUTSIDE RECORDS SUMMARY | 2022-04-04 00:59 | XMS_ITS | Encounter Summary ---
:1965 Author Organization [facility] Address [address] [place] [address] Care Team Providers Name Role Phone Anna Mullen MD Primary Care Provider Reason for Visit Reason Onset Date Comments Biopsy Results 12/22/2018 Encounter Details Date Type Department Care Team Description 12/22/2018 Telephone [facility] Molina Soliz M D Biopsy Results Dermatology - [facility] [address] [facility] [address] [place] [address] Pavilion, [place] [phone] (Wo rk) Social History Tobacco Use Types [...] on filedocumented in this encounter Care Teams Gate Tender Relationship Specialty Start Date End Date Anna Mullen MD PCP - General 05/18/18 [address] [place], [place] [phone] documented as of this encounter
--- NOTE | 2022-04-04 08:45 | DI.DEXA_ITS ---
Exam(s) XR DEXA BONE DENSITY W/WO MOUNIKA EXAM: XR DEXA BONE DENSITY W/WO MOUNIKA CLINICAL HISTORY: HX PANCREAS TRANSPLANT Z94.83 TECHNIQUE: COMPARISON: DX DEXA BONE DENSITY WITH MOUNIKA from 12/18/2016 FINDINGS: Lateral Spine Image: Unremarkable. No compression deformities identified. Left hip: Total T-Score: -1.0. This compares to -0.9 on the prior examination. Total Z-Score: -0.7 T- and Z-scores: Within normal limits. Lumbar Spine: Total T-Score: -0.1. This compares to 0.5 on the prior examination. Total Z-Score: 0.4 T- and Z-scores: Within normal limits. IMPRESSION: No evidence of osteoporosis.
== END ==
PROVIDERS: PCP Family Medicine; Visit Provider Family Medicine
DX: Z13.820 Encounter for screening for osteoporosis (principal); Z94.83 Pancreas transplant status
CPT/HCPCS: 77080

== ENCOUNTER 2022-04-28 05:58 | Day surgery (SDC) | payer BC, SELFPAY ==
--- NOTE | 2022-04-27 17:56 | ANES.PREOP_ITS ---
General Info Date of Service Date Performed: 04/28/22 Height: 6 ft Weight: 103.419 kg Body Mass Index (BMI): 30.9 Surgical Procedure: Operation Date: 04/28/22 07:35 Proposed Procedure Side Surgeon jamie Bardales MD Meds Allergies and Home Medications Allergies Allergy/AdvReac Type Severity Reaction Status Date / Time metoclopramide HCl Allergy Intermediate TARDIIVE Unverified 04/28/22 06:21 [From Reglan] DYSKINESIA oxycodone HCl [From Percocet] Allergy Intermediate Other (See Unverified 04/28/22 06:21 Comment) simvastatin [From Zocor] Allergy Intermediate MYOCLONUS Unverified 04/28/22 06:21 esomeprazole magnesium AdvReac Diarrhea Unverified 04/28/22 06:21 [From Nexium] DIMOTROPE Allergy Mild Uncoded 04/28/22 06:21 ORNADE DIMOTROPE Allergy Unknown Uncoded 04/28/22 06:21 Home Medication Medication Instructions Recorded levothyroxine 175 mcg tablet 137 mcg PO DAILY 08/21/14 multivitamin (Daily Multi-Vitamin 1 ea PO DAILY 08/21/14 tablet) magnesium gluconate 27 mg 27 mg PO DAILY 10/12/14 magnesium (500 mg) tablet pantoprazole 40 mg tablet,delayed 40 mg PO BID 05/15/16 release tacrolimus 1 mg capsule, 2 mg PO QAM 07/22/17 immediate-release (Prograf) venlafaxine 150 mg tablet,extended 225 mg PO DAILY 07/22/17 release 24 hr docusate sodium 100 mg capsule 100 mg PO TID PRN PRN 07/31/17 (Colace) ondansetron 4 mg disintegrating 4 mg PO Q6H PRN PRN / 10/12/17 tablet Vomiting ##20 lidocaine 5 % topical patch 1 patch topical DAILY PRN 10/18/18 (Lidoderm) omega-3 fatty acids 1,000 mg 1,000 mg PO DAILY 10/18/18 capsule (Fish Oil Concentrate) polyethylene glycol 3350 17 17 gm PO PRN PRN 10/18/18 gram/dose oral powder (Miralax) valacyclovir 1 gram tablet 2,000 mg PO PRN PRN 10/18/18 meclizine 25 mg tablet 25 mg PO TID PRN 03/29/19 mycophenolate mofetil 250 mg 250 mg PO 2 CAPS BID 03/29/19 capsule (CellCept) nitroglycerin 0.4 mg sublingual 0.4 mg sublingual Q5M PRN 03/29/19 tablet (Nitrostat) sildenafil 100 mg tablet (Viagra) 100 mg PO PRN PRN 03/29/19 tacrolimus 1 mg capsule, 1 mg PO HS 04/14/19 immediate-release (Prograf) clopidogrel 75 mg tablet (Plavix) 75 mg PO HS 08/08/19 atorvastatin 20 mg tablet (Lipitor) 10 mg PO HS 01/30/20 verapamil 120 mg tablet,extended 120 mg PO DAILY 01/30/20 release acetaminophen 500 mg tablet 1,000 mg PO Q6H PRN 02/08/20 (Tylenol Extra Strength) gabapentin 300 mg capsule 300 mg PO DIRECTED 05/15/20 albuterol sulfate 90 mcg/actuation 2 puff inhalation 6XD 04/25/21 aerosol inhaler (ProAir HFA) carvedilol 6.25 mg tablet 6.25 mg PO BID 04/25/21 cyclobenzaprine 5 mg tablet 5 mg PO TID PRN 04/25/21 mometasone-formoterol HFA 200 2 puff inhalation BID #13 grams 05/08/21 mcg-5 mcg/actuation aerosol inhaler (Dulera) losartan 100 mg tablet 1 tab PO DAILY 03/05/22 ropinirole 0.25 mg tablet 2 tab PO QHS 03/05/22 cholecalciferol (vitamin D3) 125 125 mcg PO DAILY 03/27/22 mcg (5,000 unit) capsule fexofenadine 180 mg tablet 180 mg PO DAILY 03/27/22 (Allergy Relief (fexofenadine)) bisacodyl 5 mg tablet,delayed 5 mg PO ONCE colonscopy bowel prep 04/11/22 release (Dulcolax (bisacodyl)) #4 tabs hydralazine 25 mg tablet 25 mg PO BID 04/11/22 magnesium citrate 300 ml PO ONCE Colonoscopy bowel 04/11/22 prep 2 day #296 mL polyethylene glycol 3350 17 238 g PO ONCE colonoscopy prep 04/11/22 gram/dose oral powder #238 grams Current Visit Medications: Current Medications Generic Name Dose Route Start Last Admin Trade Name Freq PRN Reason Stop Dose Admin Ringer's Solution 1,000 mls @ 80 mls/hr 04/28/22 06:00 IV 05/25/22 23:59 [facility] IV Miscellaneous Supplies 1 each 04/28/22 06:00 Iv Access IV 05/25/22 23:59 DIRECTED [facility] Sodium Chloride 0 ml 04/28/22 06:00 Normal Saline Flush 10 Ml Syr IV 05/25/22 23:59 PRN PRN Sodium Chloride 0 ml 04/28/22 06:00 Normal Saline 10 Ml Vial IJ 05/25/22 23:59 DIRECTED PRN Sterile Water 0 ml 04/28/22 06:00 Water,Injection,Sterile 10 Ml Vial IJ 05/25/22 23:59 DIRECTED PRN PFSH Active Problems Active Problems: Problem Status Onset Code History of colonoscopy Z98.890 Sleep apnea G47.30 Interrupted breathing R06.89 Medical History Medical History Abnormal movements Acute febrile illness Acute otitis externa of right ear Acute right otitis media Asthma Atopic dermatitis Back pain with history of spinal surgery Carpal tunnel syndrome of right wrist (10/12/14) Chest pressure work uped but everthing negative Coxsackie virus infection Depression Difficulty swallowing Dyspnea on exertion Erectile dysfunction Femoroacetabular impingement of left hip Gastroparesis Hernia History of diabetes mellitus, type I no longer after transplant Hypertension Hyponatremia Hypothyroidism (acquired) Knot in throat Left hemiparesis 2019 Lumbar back pain Lumbar back pain with radiculopathy affecting left lower extremity Migraine Near syncope Oropharyngeal dysphagia Pancreas transplanted Right shoulder pain Scoliosis Strain of flexor muscle of left hip Subcutaneous mass of left lower extremity Tardive dyskinesia (10/12/14) Tendinitis of left hip flexor 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) Vertigo Vocal cord dysfunction Weakness of left lower extremity Surgical History Surgical History History of appendectomy History of arthroscopic knee surgery Left History of carpal tunnel release Right History of esophagogastroduodenoscopy (EGD) History of pancreas transplant 08/27/13 History of shoulder surgery R shoulder Status post pancreas transplantation Trigger finger, right middle finger S/P release on 02/08/2020 Tobacco Smoking/Tobacco Use Status: Never Alcohol Alcohol Intake: never Substance Use Substance use: Never Substance use type: does not use Vital Signs and Lab Results Vital Signs Most Recent Vital Signs in EMR: Temp Pulse Resp BP Pulse Ox 36.3 C L 65 18 134/86 98 04/28/22 06:28 04/28/22 06:28 04/28/22 06:28 04/28/22 06:28 04/28/22 06:28 Lab Results Blood Type / Crossmatch: No Data to Display Complete Blood Count: No Data to Display Complete Metabolic Panel: No Data to Display Liver Function Panel: No Data to Display Coagulation Panel: No Data to Display Cardiac Panel: No Data to Display Arterial Blood Gas: No Data to Display Venous Blood Gas: No Data to Display Pancreas Panel: No Data to Display Thyroid Panel: Thyroid Stimulating Hormone (TSH) 1.06 uIU/mL (0.36-3.74) 03/31 08:09 Infectious Disease: No Data to Display Blood Cultures: No Data to Display Toxicology Panel: No Data to Display Imaging and Studies Imaging and Studies Study information below may be from another EMR and interpreted by another provider. Please see original notes in EMR for more complete details. Stress Test Summary: 04/20: EF 60%, no WMA, normal stress. Echocardiogram Summary: 08/20: LVEF 60-65%, no sig valve disease. Pulmonary Function Summary: 2019: normal Anesthesia Assessment and Plan Anesthesia History Personal History: No History of Anesthesia Complications Family History: No Family History of Anesthesia Complications Exercise Tolerance Exercise Tolerance: Metabolic Equivalents>4 Cardiac & Pulmonary Exam Cardiac Exam: Normal S1/S2 Heart Sounds Pulmonary Exam: Clear Bilateral Breath Sounds Implantable Cardiac Device Does patient have a Pacemaker or an ICD?: No Airway Exam Known Difficult Airway: No Mallampati Class: 1 Mouth Opening: Normal (> 3cm) Thyromental Distance: Greater than 3 cm Neck Range of Motion: Full ROM Neck Circumference: Normal Teeth Condition: Normal Dentition ASA Classification ASA Score: ASA 3 Emergency Case?: No NPO Status NPO Status: NPO Clears >2 hours, Solids >8 hours Anesthesia Plan Resuscitation Status: Full Code Anesthesia Technique: General Anesthesia Airway Planned: Endotracheal Tube Monitors Used: Standard Monitors Preoperative Comments:: 56 yo male for colo. 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
--- NOTE | 2022-04-28 06:25 | W.COLOREPORT ---
Colonoscopy Report Date of procedure: 04/28/22 Pre-op diagnosis general: colon cancer screening Post-op diagnosis procedure note: same Procedure: Colonoscopy Surgeon: Sandra Bardales Anesthesia Type: General:No Airway Estimated blood loss (mL): 0 Pathology: none sent Complications: None Disposition: same day Indications: The patient is here for Colonoscopy pre-op. His last screening was in 2019 and was remarkable for a tubular adenoma. He has no family history of colon cancer. He has not had any bowel habit changes. -Discussed colonoscopy bowel prep as well as the procedure. Discussed possible complications of the procedure to include bleeding, pain, perforation, missed small lesion/polyp, sore throat, aspiration and adverse reaction to the medications. Questions were answered to patient?s satisfaction. No guarantees were implied or given.? Prep: Miralax Procedure Start Time: 08:34 Procedure End Time: 08:57 Retraction Time: 10 minutes Findings: Normal colon Procedure Description: After informed consent was obtained the patient was taken to the procedure room and placed in a left decubitous position. Monitors were applied and a time out was done. The patients name, date of , procedure, allergies to medications and metal in their body was reviewed. The patient was then sedated. Once sedated and comfortable a rectal exam was done. External exam was normal. Internal exam revealed a normal sphincter tone and no palpable masses. The prostate felt smooth. The scope was then introduced and retro-flexed. No internal hemorrhoids, polyps or masses were identified on retro-flexion. The scope was then advanced to the cecum without difficulty. The ileocecal vlave and appendiceal orifice were identified. The prep was adequate. The scope was then slowly retracted over 10 minutes back into the rectum. There were no polyps and no diverticulosis noted. The scope was removed and the patient was woken up and taken back to Same day surgery in stable condition. The patient tolerated the procedure well and there were no immediate complications. Follow up: The patient should follow up in 5 years unless they develop changes in bowel habits or other new gastrointestinal complaints.
--- NOTE | 2022-04-28 06:27 | W.PM.DSUDISC ---
Discharge Plan Disposition Patient Disposition: HOME Condition: Good Discharge Details Reason For Visit: colonoscopy Attending Provider: Sandra Bardales Primary Care Provider: Anna Mullen V Home Meds and New Rx's Prescriptions: Continued sildenafil [Viagra] 100 mg tablet 100 mg PO PRN PRN meclizine 25 mg tablet 25 mg PO TID PRN nitroglycerin [Nitrostat] 0.4 mg tablet, sublingual 0.4 mg SL Q5M PRN verapamil 120 mg tablet extended release 120 mg PO DAILY hydralazine 25 mg tablet 25 mg PO BID magnesium citrate Solution 300 ml PO ONCE Qty: 296 0RF Rx Instructions: as a single dose lidocaine [Lidoderm] 5 % adhesive patch,medicated 1 patch TP DAILY PRN valacyclovir 1 gram tablet 2,000 mg PO PRN PRN polyethylene glycol 3350 [Miralax] 17 gram/dose powder 17 gm PO PRN PRN omega-3 fatty acids [Fish Oil Concentrate] 1,000 mg capsule 1,000 mg PO DAILY Dulera 200-5 mcg/actuation HFA aerosol inhaler 2 puff inhalation BID Qty: 13 8RF Rx Instructions: 2 puff bid and as needed for a maximum of 12 puffs in 24 hours (SMART therapy) multivitamin [Daily Multi-Vitamin] 1 EACH tablet 1 ea PO DAILY levothyroxine 175 MCG tablet 137 mcg PO DAILY magnesium gluconate 27 MG tablet 27 mg PO DAILY tacrolimus [Prograf] 1 MG capsule 2 mg PO QAM venlafaxine 150 MG tablet extended release 24hr 225 mg PO DAILY mycophenolate mofetil [CellCept] 250 mg capsule 250 mg PO 2 CAPS BID carvedilol 6.25 mg tablet 6.25 mg PO BID Rx Instructions: must administer with a meal/food cyclobenzaprine 5 mg tablet 5 mg PO TID PRN albuterol sulfate [ProAir HFA] 90 mcg/actuation HFA aerosol inhaler 2 puff inhalation 6XD fexofenadine [Allergy Relief (fexofenadine)] 180 mg tablet 180 mg PO DAILY cholecalciferol (vitamin D3) 125 mcg (5,000 unit) capsule 125 mcg PO DAILY pantoprazole 40 MG tablet,delayed release (DR/EC) 40 mg PO BID gabapentin 300 mg capsule 300 mg PO DIRECTED Rx Instructions: Per pt. takes 300 mg am, 600 mg suppertime, 600 mg HS 05/15/20 ondansetron 4 MG tablet,disintegrating 4 mg PO Q6H PRN PRN (Reason: Nausea / Vomiting) Qty: 20 0RF tacrolimus [Prograf] 1 mg Capsule 1 mg PO HS acetaminophen [Tylenol Extra Strength] 500 mg Tablet 1,000 mg PO Q6H PRN docusate sodium [Colace] 100 MG capsule 100 mg PO TID PRN PRN0RF clopidogrel [Plavix] 75 mg Tablet 75 mg PO HS atorvastatin [Lipitor] 20 mg tablet 10 mg PO HS ropinirole 0.25 mg tablet 2 tab PO QHS Label Comments: TAKE 2 TABLETS ORALLY IN EVENING 1 HOUR BEFORE BEDTIME. MAY INCREASE BY 1 TABLET A WEEK UP TO 4 TABLETS UNTIL RESTLESS LEGS AND BODY CALM DO losartan 100 mg tablet 1 tab PO DAILY Discontinued polyethylene glycol 3350 17 gram/dose powder 238 g PO ONCE Qty: 238 0RF Rx Instructions: take per colonoscopy instructions bisacodyl [Dulcolax (bisacodyl)] 5 mg tablet,delayed release (DR/EC) 5 mg PO ONCE Qty: 4 0RF Rx Instructions: take per colonoscopy instructions Discharge Instructions Additional Instructions: Findings: Normal Follow up: 5 years Please call if you develop: fevers >101.5 Nausea or Vomiting Abdominal pain that is not transient Rectal bleeding that is more then a tbsp A hard abdomen and inability to pass gas DAY SURGERY UNIT POST ENDOSCOPY INSTRUCTIONS Instructions for everyone who is given Anesthesia: For your safety, please do the following for the next 24 Hours: a. Do not drive or operate dangerous equipment b. Do not drink alcohol beverages or use any recreational drugs for the first 24 hours or while taking pain medications. The medications in your body may have a reaction that can be dangerous. c. Do not make any important decisions or sign any important papers 1. Generally there are no restrictions on your activity after a day or so has gone by, but you may feel a bit fatigued for a few days. 2. After you arrive home you may have a light meal and return to a normal diet as you can tolerate it without feeling sick to your stomach. 3. After surgery, you may feel pain or discomfort. This should be only transient, but if it persists please contact your doctor. 4. If there are any questions regarding the findings of your procedure, please feel free to contact your doctor. 6. If you are unable to contact your doctor with a problem, contact the hospital at [phone]. 7. Continue all your regular medications unless directed otherwise. I understand the above instructions and have no questions. Signature of Patient or Responsible Adult Escort Date/Time Name of Responsible Adult Escort Signature of Nurse Date/Time Activity:: Activity as Tolerated Diet:: As Tolerated Discharge Orders Discharge Orders: Discharge Order (Routine); Ordered 04/28/22 Ordered By: Sandra Bardales
[2022-04-28 06:28] VITALS: BP 134/86; PULSE 65; RESP 18; TEMP 36.3; O2SAT 98
[2022-04-28] MEDS: Lactated Ringers 1,000 ML 80 ML IV (06:40)
[2022-04-28 07:01] VITALS: BMI 30.9
[2022-04-28 07:32] LABS: Source Nasal/Nares
[2022-04-28 08:03] LABS: COVID-19 PCR Negative (Negative)
[2022-04-28 09:10] VITALS: BP 146/84; PULSE 61; RESP 23; TEMP 36.5; O2SAT 95
[2022-04-28 09:15] VITALS: BP 135/89; PULSE 59; RESP 16; TEMP 36.5; O2SAT 95
[2022-04-28 09:20] VITALS: BP 140/80; PULSE 62; RESP 15; TEMP 36.6; O2SAT 95
--- NOTE | 2022-04-28 09:28 | W.ANESPOSTOP ---
Postoperative Evaluation Date, Time and Location Date Performed: 04/28/22 Time Performed: Patient Location: PACU Vital Signs Most Recent Imported Vital Signs: Most Recent Vital Signs Temp Pulse Resp BP Pulse Ox 36.6 C 62 15 140/80 95 04/28/22 09:20 04/28/22 09:20 04/28/22 09:20 04/28/22 09:20 04/28/22 09:20 Pain Score Most Recent Pain Score: Most Recent Pain Score Pain Level 0 04/28/22 09:20 Assessment Mental Status: Awake (Alert & Oriented to Patient Baseline) Airway and Respiratory Function: Patent airway with normal (patient baseline) respiratory exam Cardiovascular Function: Hemodynamically Stable Hydration Status: Adequately Hydrated Nausea & Vomiting: No Nausea or Vomiting Pain: Pt. Denies Any Pain Peripheral Nerve Block: Patient did not receive a nerve block
[2022-04-28 09:32] VITALS: BP 126/89; PULSE 61; RESP 17; TEMP 36.4; O2SAT 97
[2022-04-28 09:55] VITALS: BP 137/88; PULSE 60; RESP 18; TEMP 36.5; O2SAT 98
== END 2022-04-28 10:03 | disposition home or self-care (01) ==
PROVIDERS: Nurse Anesthetist, Certified Registered; PCP Family Medicine; Visit Provider Surgery
PROC: 0DJD8ZZ Inspection of Lower Intestinal Tract, Via Natural or Artificial Opening Endoscopic (ICD-10-PCS; CPT 45378; principal; 2022-04-28 07:30)
DX: Z12.11 Encounter for screening for malignant neoplasm of colon (principal); J45.909 Unspecified asthma, uncomplicated
CPT/HCPCS: 45378; 87635; J2704

== ENCOUNTER 2022-10-09 08:11 | Emergency (ER) | payer BC, SELFPAY ==
[2022-10-09 08:15] VITALS: BP 168/99; PULSE 69; RESP 18; TEMP 37.1; O2SAT 98
--- NOTE | 2022-10-09 08:52 | ED.GENADUL_ITS ---
Discharge Plan Disposition Patient Disposition: Home Discharge Details Clinical Impression: Acute foot pain, Gout attack, Osteoarthritis Primary Care Provider: Anna Mullen V ED Provider: Sarita Weiss Home Meds and New Rx's Prescriptions: New prednisone 10 mg tablet 30 mg PO DIRECTED Qty: 15 0RF Rx Instructions: Take 3 tabs daily for 5 days or until symptoms resolved completely hydrocodone-acetaminophen 5-325 mg tablet 1 tab PO Q8H PRNQty: 8 0RF Continued sildenafil [Viagra] 100 mg tablet 100 mg PO PRN PRN meclizine 25 mg tablet 25 mg PO TID PRN nitroglycerin [Nitrostat] 0.4 mg tablet, sublingual 0.4 mg SL Q5M PRN verapamil 120 mg tablet extended release 180 mg PO DAILY lidocaine [Lidoderm] 5 % adhesive patch,medicated 1 patch TP DAILY PRN valacyclovir 1 gram tablet 2,000 mg PO PRN PRN polyethylene glycol 3350 [Miralax] 17 gram/dose powder 17 gm PO PRN PRN omega-3 fatty acids [Fish Oil Concentrate] 1,000 mg capsule 1,000 mg PO DAILY hydrochlorothiazide 25 mg tablet 25 mg PO BID multivitamin [Daily Multi-Vitamin] 1 EACH tablet 1 ea PO DAILY levothyroxine 175 MCG tablet 137 mcg PO DAILY magnesium gluconate 27 MG tablet 27 mg PO DAILY venlafaxine 150 MG tablet extended release 24hr 225 mg PO DAILY mycophenolate mofetil [CellCept] 250 mg capsule 250 mg PO 2 CAPS BID carvedilol 6.25 mg tablet 6.25 mg PO BID Rx Instructions: must administer with a meal/food albuterol sulfate [ProAir HFA] 90 mcg/actuation HFA aerosol inhaler 2 puff inhalation 6XD fexofenadine [Allergy Relief (fexofenadine)] 180 mg tablet 180 mg PO DAILY cholecalciferol (vitamin D3) 125 mcg (5,000 unit) capsule 125 mcg PO DAILY Rx Instructions: reports he is taking 10,000 IU [id number]. 09/15/22 tacrolimus [Prograf] 1 mg capsule See Rx Instructions PO .COMPLEX Rx Instructions: orally BID; 2 caps in the AM, 1 cap in the PM pantoprazole 40 MG tablet,delayed release (DR/EC) 40 mg PO BID gabapentin 300 mg capsule 300 mg PO DIRECTED Rx Instructions: Per pt. takes 300 mg am, 600 mg suppertime, 600 mg HS 05/15/20 ondansetron 4 MG tablet,disintegrating 4 mg PO Q6H PRN PRN (Reason: Nausea / Vomiting) Qty: 20 0RF acetaminophen [Tylenol Extra Strength] 500 mg Tablet 1,000 mg PO Q6H PRN clopidogrel [Plavix] 75 mg Tablet 75 mg PO HS atorvastatin [Lipitor] 20 mg tablet 10 mg PO HS ropinirole 0.25 mg tablet 2 tab PO QHS Patient Comments: TAKE 2 TABLETS ORALLY IN EVENING 1 HOUR BEFORE BEDTIME. MAY INCREASE BY 1 TABLET A WEEK UP TO 4 TABLETS UNTIL RESTLESS LEGS AND BODY CALM DO losartan 100 mg tablet 1 tab PO DAILY Discharge Instructions Instructions: Gout (ED), Leg Pain (ED) Additional Instructions: Take the prednisone as prescribed, this will add to your immunosuppression and make you at risk for infection, please wear mask whenever you are around people until you complete this You may take the hydrocodone sparingly, this may give you the same sensation as oxycodone so be aware that when you take this medication it may cause an unusual sensation Elevate your foot Recheck in 48 hours recommended Return earlier should you have fever, chills, or with any new or worsening complaints Referrals: Anna Mullen MD [Primary Care Provider] - 2 days Discharge Data Discharge Date/Time-TO BE ENTERED AT DEPARTURE: 10/09/22 10:33 Medical Decision Making Secondary to age and comorbidities, ordered diagnostic blood work and x-ray, x- ray interpretation is that of osteoarthritis per the radiologist Clinically with exam findings suspect gout possibly superimposed on osteoarthritis, will place on prednisone, diagnostic labs are reassuring, reviewed CBC, CMP, and inflammatory markers which were negative Patient will be placed on Percocet for pain with opiate contract as needed, risk of addiction reviewed Also placed patient on prednisone, he is aware that he is immunosuppressed, wear mask when he is out in public or around groups of people He will take the prednisone for the least amount of time possible He will elevate and crutches were supplied There is no clinical evidence of infectious process at this time, will encourage for 48-hour recheck with patient's primary care physician Early return precautions reviewed and patient expressed understanding Medical Records Medical records reviewed: Yes I reviewed the patient's medical records. HPI General Date/Time Provider Initiated Documentation: 10/09/22 08:21 . HPI Narrative: This 57-year-old male with history insulin-dependent diabetes with pancreatic transplant in 2013 chronically immunosuppressed on Prograf and CellCept history of CVA, hypertension, neuropathy presents with right foot pain for the past 3 weeks. States he had a hangnail to the affected foot which was treated with antibiotics. He states the pain was minimally improved until he stopped ant ibiotics and the pain returned. He denies any fever or chills. He states in the past 3 weeks the pain is dramatically worsened. He does state that he accidentally kicked a countertop but states that the pain does not change dramatically since that time. Denies chest pain, shortness of breath, dizziness, weakness Related Data Home Medications Medication Instructions Recorded Confirmed levothyroxine 175 mcg tablet 137 mcg PO DAILY 08/21/14 10/09/22 multivitamin (Daily Multi-Vitamin 1 ea PO DAILY 08/21/14 10/09/22 tablet) magnesium gluconate 27 mg 27 mg PO DAILY 10/12/14 10/09/22 magnesium (500 mg) tablet pantoprazole 40 mg tablet,delayed 40 mg PO BID 05/15/16 10/09/22 release venlafaxine 150 mg tablet,extended 225 mg PO DAILY 07/22/17 10/09/22 release 24 hr ondansetron 4 mg disintegrating 4 mg PO Q6H PRN PRN Nausea / 10/12/17 10/09/22 tablet Vomiting ##20 lidocaine 5 % topical patch 1 patch topical DAILY PRN 10/18/18 10/09/22 (Lidoderm) omega-3 fatty acids 1,000 mg 1,000 mg PO DAILY 10/18/18 10/09/22 capsule (Fish Oil Concentrate) polyethylene glycol 3350 17 17 gm PO PRN PRN 10/18/18 10/09/22 gram/dose oral powder (Miralax) valacyclovir 1 gram tablet 2,000 mg PO PRN PRN 10/18/18 10/09/22 meclizine 25 mg tablet 25 mg PO TID PRN 03/29/19 10/09/22 mycophenolate mofetil 250 mg 250 mg PO 2 CAPS BID 03/29/19 10/09/22 capsule (CellCept) nitroglycerin 0.4 mg sublingual 0.4 mg sublingual Q5M PRN 03/29/19 10/09/22 tablet (Nitrostat) sildenafil 100 mg tablet (Viagra) 100 mg PO PRN PRN 03/29/19 10/09/22 clopidogrel 75 mg tablet (Plavix) 75 mg PO HS 08/08/19 10/09/22 atorvastatin 20 mg tablet (Lipitor) 10 mg PO HS 01/30/20 10/09/22 acetaminophen 500 mg tablet 1,000 mg PO Q6H PRN 02/08/20 10/09/22 (Tylenol Extra Strength) gabapentin 300 mg capsule 300 mg PO DIRECTED 05/15/20 10/09/22 albuterol sulfate 90 mcg/actuation 2 puff inhalation 6XD 04/25/21 10/09/22 aerosol inhaler (ProAir HFA) carvedilol 6.25 mg tablet 6.25 mg PO BID 04/25/21 10/09/22 losartan 100 mg tablet 1 tab PO DAILY 03/05/22 10/09/22 ropinirole 0.25 mg tablet 2 tab PO QHS 03/05/22 10/09/22 fexofenadine 180 mg tablet 180 mg PO DAILY 03/27/22 10/09/22 (Allergy Relief (fexofenadine)) cholecalciferol (vitamin D3) 125 125 mcg PO DAILY 09/15/22 10/09/22 mcg (5,000 unit) capsule hydrochlorothiazide 25 mg tablet 25 mg PO BID 09/15/22 10/09/22 tacrolimus 1 mg capsule, See Rx Instructions PO .COMPLEX 09/15/22 10/09/22 immediate-release (Prograf) verapamil 120 mg tablet,extended 180 mg PO DAILY 09/15/22 10/09/22 release hydrocodone 5 mg-acetaminophen 325 1 tab PO Q8H PRN #8 tabs 10/09/22 mg tablet prednisone 10 mg tablet 30 mg PO DIRECTED #15 tabs 10/09/22 Previous Rx's Medication Instructions Recorded ondansetron 4 mg disintegrating 4 mg PO Q6H PRN PRN Nausea / 10/12/17 tablet Vomiting ##20 hydrocodone 5 mg-acetaminophen 325 1 tab PO Q8H PRN #8 tabs 10/09/22 mg tablet prednisone 10 mg tablet 30 mg PO DIRECTED #15 tabs 10/09/22 Allergies Allergy/AdvReac Type Severity Reaction Status Date / Time metoclopramide HCl Allergy Intermediate TARDIIVE Unverified 10/09/22 08:18 [From Reglan] DYSKINESIA oxycodone HCl [From Percocet] Allergy Intermediate Other (See Unverified 10/09/22 08:18 Comment) simvastatin [From Zocor] Allergy Intermediate MYOCLONUS Unverified 10/09/22 08:18 esomeprazole magnesium AdvReac Diarrhea Unverified 10/09/22 08:18 [From Nexium] DIMOTROPE Allergy Mild Uncoded 10/09/22 08:18 ORNADE DIMOTROPE Allergy Unknown Uncoded 10/09/22 08:18 General Stated Complaint: Orthopedic ROBIN: 3 PFSH All Active Problems (Updated 10/09/22 @ 10:21 by MATT Garcia) Acute foot pain (Acute) Gout attack (Acute) Osteoarthritis (Chronic) Hernia, ventral (Acute) Back pain with history of spinal surgery (Acute) 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 (Acute) Gastroparesis (Acute) Migraine (Chronic) Vaccine contraindicated (Chronic) NO LIVE VACCINES Left hemiparesis (Acute) 2019 Depression (Chronic) Vertigo (Acute) Acquired deformity of foot (Acute) Asthma, exercise induced (Acute) Vitamin D deficiency, unspecified (Acute) RLS (restless legs syndrome) (Acute) Dyspnea (Acute) Erectile dysfunction (Acute) Bilateral radicular pain (Acute) lower legs Acquired inequality of length of feet (Acute) Scoliosis (Acute) Pancreas transplanted (Acute) Hypothyroidism (acquired) (Acute) Hypertension (Chronic) Neuropathy (Acute) Nail dystrophy (Acute) Sleep apnea (Acute) Interrupted breathing (Acute) Medical History (Updated 10/09/22 @ 10:21 by MATT Garcia) Abnormal movements Acute febrile illness Acute otitis externa of right ear Acute right otitis media Asthma Atopic dermatitis Carpal tunnel syndrome of right wrist (10/12/14) Chest pressure work uped but everthing negative Coxsackie virus infection Difficulty swallowing Dyspnea on exertion Femoroacetabular impingement of left hip Hernia History of diabetes mellitus, type I no longer after transplant Hyponatremia Ingrown toenail Knot in throat Lumbar back pain Lumbar back pain with radiculopathy affecting left lower extremity Near syncope Normal colonoscopy Oropharyngeal dysphagia Right shoulder pain Strain of flexor muscle of left hip Subcutaneous mass of left lower extremity Tardive dyskinesia (10/12/14) Tendinitis of left hip flexor Trigger finger, right middle finger 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) Vocal cord dysfunction Weakness of left lower extremity Surgical History (Updated 10/06/22 @ 10:18 by Tatyana Damon RN) History of appendectomy History of arthroscopic knee surgery Left History of carpal tunnel release Right History of colonoscopy 2015-pitting of colonic mucosa History of colonoscopy (~03/2022) History of esophagogastroduodenoscopy (EGD) History of pancreas transplant 08/27/13 History of shoulder surgery R shoulder Trigger finger, right middle finger S/P release on 02/08/2020 Family History Father COPD (chronic obstructive pulmonary disease) Mother Hypertension Status post heart valve replacement AGE 7 Migraine Parkinsons Brother Enlarged prostate no cancer Other Heart disease Social History Smoking/Tobacco Use Status: Never Smoking risk assessment performed?: Yes Alcohol Intake: never Drug use: Never Substance use type: does not use Household members: family Housing: house Pets and animals: Yes Pets and animals: cat(s) and dog(s) Current gender identity: male What is your relationship status?: Panel score (0-1 are the most socially isolated patients): 1 Seatbelt use: always Do you feel safe at home: Yes Do you feel safe in your relationship?: Yes Exam Const General: cooperative, comfortable and no acute distress Resp Effort & Inspection: normal respiratory effort Cardio Rate: regular rate Skin General skin exam: no rashes or lesions noted Extrem Other: Right foot swelling, specifically swelling and tenderness to right MTP, no erythema, no crepitus, exquisitely tender to palpation, no vascularly intact without any evidence of cellulitis or lymphangitis Course Vital Signs Vital signs: Vital Signs Temperature 37.1 C 10/09/22 08:15 Pulse 69 10/09/22 08:15 Respiratory Rate 18 10/09/22 08:15 Blood Pressure 168/99 H 10/09/22 08:15 Pulse Oximetry 98 10/09/22 08:15 Temperature 37.1 C 10/09/22 08:15 Temperature Source Temporal Artery Scan 10/09/22 08:15 Pulse 69 10/09/22 08:15 Respiratory Rate 18 10/09/22 08:15 Respiratory Effort Normal, Non-Labored 10/09/22 08:22 Blood Pressure 168/99 H 10/09/22 08:15 Blood Pressure Position Sitting 10/09/22 08:15 Pulse Oximetry 98 10/09/22 08:15 Oxygen Delivery Method Room Air 10/09/22 08:15 Oxygen Flow Rate 0 10/09/22 08:15
--- NOTE | 2022-10-09 08:57 | DI.RAD_ITS ---
Exam(s) XR FOOT RT COMPLETE EXAM: XR FOOT RT COMPLETE CLINICAL HISTORY: mtp, phalanx, metatarsal pain 1st. TECHNIQUE: 2D digital imaging was performed. COMPARISON: No exams were available for comparison FINDINGS: 3 views No evidence of acute fracture or diastasis of the Lisfranc joint. There are significant osteoarthritic degenerative changes in the great toe metatarsophalangeal joint. Degenerative subarticular cysts are seen on both sides of the joint. Also marginal osteophytes. O ther MTP joints appear unremarkable. Of diabetes recommended. There is subtle vascular calcification in the soft tissues between the 1st and 2nd metatarsals. Liliana elation with any history diabetes recommended. IMPRESSION: Significant osteoarthritic degenerative changes in the great toe metatarsophalangeal joint. DATA REPOSITORY: RADIATION DOSE DELIVERED:
[2022-10-09 09:40] LABS: Abs Immature Grans 0.04 10^3/uL (0.0-0.06); Absolute Basophil Count 0.06 10^3/uL (0.0-0.2); Absolute Eosinophil Count 0.17 10^3/uL (0.0-0.7); Absolute Lymphocyte Count 2.64 10^3/uL (1.2-3.4); Absolute Neutrophil Count 4.87 10^3/uL (1.2-6.7); Basophils % 0.7; HCT 43.2 % (40.0-50.0); HGB 14.3 g/dL (13.5-17.5); Immature Grans % 0.5; Lymphocytes % 31.1; MCH 29.9 pg (27.0-33.0); MCHC 33.1 % (32.0-36.0); MCV 90 fL (80-95); MPV 10.9 fL (8.0-11.0); Monocytes % 8.3; Neutrophils % 57.4; Platelet Count 211 10^3/uL (130-400); RBC 4.79 10^6/uL (4.36-5.78); RDW 12.3 % (11.8-14.1); RDW-SD 40.6 fL; WBC 8.48 10^3/uL (4.4-10.8)
[2022-10-09 09:42] LABS: ESR 1 mm/hr (0-20)
[2022-10-09 09:56] LABS: ALT 28 U/L (16-63); AST 23 U/L (15-37); Albumin 4.1 g/dL (3.4-5.0); Alkaline Phosphatase 135 U/L (46-116); Anion Gap 7.2 mmol/L (3-11); BUN 14 mg/dL (7-18); C-Reactive Protein 0.15 mg/dL (0.0-0.3); CO2 28.8 mmol/L (21.0-32.0); CREATININE 1.1 mg/dL (0.70-1.30); Calcium 9.5 mg/dL (8.5-10.1); Chloride 102 mmol/L (98-107); Estimated GFR 79.28 (mL/min/1.73m2); Glucose 108 mg/dL (74-106); Potassium 4.3 mmol/L (3.5-5.1); Sodium 138 mmol/L (136-145); Total Protein 7.5 g/dL (6.4-8.2)
== END 2022-10-09 10:33 | disposition home or self-care (01) ==
PROVIDERS: Emergency Provider Physician Assistant; PCP Family Medicine
DX: M19.071 Primary osteoarthritis, right ankle and foot (principal); M10.9 Gout, unspecified; E10.9 Type 1 diabetes mellitus without complications; I10 Essential (primary) hypertension; J45.909 Unspecified asthma, uncomplicated; Z86.73 Personal history of transient ischemic attack (TIA), and cerebral infarction without residual deficits; Z85.831 Personal history of malignant neoplasm of soft tissue
CPT/HCPCS: 36415; 80053; 85652; 99283; 73630; 84550; 85025; 86140; 99284

== ENCOUNTER 2022-10-21 10:25 | Outpatient (REF) | payer BC, SELFPAY ==
[2022-10-21 16:09] LABS: FREE T4 1.36 ng/dL (0.76-1.46); TSH 0.74 uIU/mL (0.36-3.74)
[2022-10-23 13:31] LABS: Lyme Ab w Rflx to Lyme Confirm Negative (Negative)
== END 2022-10-21 10:26 | disposition home or self-care (01) ==
LOC: NCHCN 10:25
PROVIDERS: PCP Family Medicine; Visit Provider Family Medicine
DX: M25.40 Effusion, unspecified joint (principal)
CPT/HCPCS: 84439; 84443; 86618

== ENCOUNTER 2022-12-13 08:55 | Emergency (ER) | payer BC, SELFPAY ==
[2022-12-13 08:59] VITALS: BP 149/89; PULSE 79; RESP 18; TEMP 36.9; O2SAT 96
--- NOTE | 2022-12-13 09:00 | DI.RAD_ITS ---
Exam(s) XR RIBS LT W PA LAT CHEST EXAM: XR RIBS LT W PA LAT CHEST CLINICAL HISTORY: fall-posterior lateral rib injury. TECHNIQUE: 2D digital imaging was performed. COMPARISON: CR XR CHEST 2V PA LATERAL from 11/03/2019 FINDINGS: Total 7 views: Left rib cage-five views: There is no evidence of obvious left rib fractures no rib lesions. No pneu mothorax. Chest-two views: Heart size normal. Mediastinum not widened. No infiltrates nor pleural effusions. Subsegmental platelike atelectasis in the lateral left lung base noted. No pneumothorax. No pleura l effusion. IMPRESSION: Mild platelike atelectasis in left lung base. No lung contusion or pleural effusion and no pneumotho rax. No left rib fracture seen. DATA REPOSITORY: RADIATION DOSE DELIVERED:
--- NOTE | 2022-12-13 09:15 | W.ED.GENAD ---
Discharge Plan Disposition Patient Disposition: Home Discharge Details Clinical Impression: Contusion of rib on left side Primary Care Provider: Anna Mullen V ED Provider: Wilmer Saavedra Home Meds and New Rx's Prescriptions: Continued sildenafil [Viagra] 100 mg tablet 100 mg PO PRN PRN meclizine 25 mg tablet 25 mg PO TID PRN nitroglycerin [Nitrostat] 0.4 mg tablet, sublingual 0.4 mg SL Q5M PRN verapamil 120 mg tablet extended release 180 mg PO DAILY valacyclovir 1 gram tablet 2,000 mg PO PRN PRN polyethylene glycol 3350 [Miralax] 17 gram/dose powder 17 gm PO PRN PRN omega-3 fatty acids [Fish Oil Concentrate] 1,000 mg capsule 1,000 mg PO DAILY hydrochlorothiazide 25 mg tablet 25 mg PO BID multivitamin [Daily Multi-Vitamin] 1 EACH tablet 1 ea PO DAILY levothyroxine 175 MCG tablet 137 mcg PO DAILY magnesium gluconate 27 MG tablet 27 mg PO DAILY venlafaxine 150 MG tablet extended release 24hr 225 mg PO DAILY mycophenolate mofetil [CellCept] 250 mg capsule 250 mg PO 2 CAPS BID carvedilol 6.25 mg tablet 6.25 mg PO BID Rx Instructions: must administer with a meal/food albuterol sulfate [ProAir HFA] 90 mcg/actuation HFA aerosol inhaler 2 puff inhalation 6XD fexofenadine [Allergy Relief (fexofenadine)] 180 mg tablet 180 mg PO DAILY cholecalciferol (vitamin D3) 125 mcg (5,000 unit) capsule 125 mcg PO DAILY Rx Instructions: reports he is taking 10,000 IU [id number]. 09/15/22 tacrolimus [Prograf] 1 mg capsule See Rx Instructions PO .COMPLEX Rx Instructions: orally BID; 2 caps in the AM, 1 cap in the PM pantoprazole 40 MG tablet,delayed release (DR/EC) 40 mg PO BID gabapentin 300 mg capsule 300 mg PO DIRECTED Rx Instructions: Per pt. takes 300 mg am, 600 mg suppertime, 600 mg HS 05/15/20 ondansetron 4 MG tablet,disintegrating 4 mg PO Q6H PRN PRN (Reason: Nausea / Vomiting) Qty: 20 0RF acetaminophen [Tylenol Extra Strength] 500 mg Tablet 1,000 mg PO Q6H PRN clopidogrel [Plavix] 75 mg Tablet 75 mg PO HS atorvastatin [Lipitor] 20 mg tablet 10 mg PO HS ropinirole 0.25 mg tablet 2 tab PO QHS Patient Comments: TAKE 2 TABLETS ORALLY IN EVENING 1 HOUR BEFORE BEDTIME. MAY INCREASE BY 1 TABLET A WEEK UP TO 4 TABLETS UNTIL RESTLESS LEGS AND BODY CALM DO losartan 100 mg tablet 1 tab PO DAILY Discontinued lidocaine [Lidoderm] 5 % adhesive patch,medicated 1 patch TP DAILY PRN Patient Comments: not taking prednisone 10 mg tablet 30 mg PO DIRECTED Qty: 15 0RF Patient Comments: not taking Rx Instructions: Take 3 tabs daily for 5 days or until symptoms resolved completely hydrocodone-acetaminophen 5-325 mg tablet 1 tab PO Q8H PRNQty: 8 0RF Patient Comments: not taking Discharge Instructions Instructions: Rib Contusion (ED) Additional Instructions: If the provided lidocaine patch helps please use [id number] lidocaine 4% patch or cream and apply as directed on packaging. You may continue to use acetaminophen as needed for discomfort and feel free to return for new or worsening symptoms otherwise follow-up with your primary care provider as needed for reassessment. Referrals: Anna Mullen MD [Primary Care Provider] - (As needed for reassessment) Medical Decision Making Patient presenting to the emergency department for chief complaint of rib injury. Patient reports that he excellently rolled out of bed and landed on a glass trash can. It struck him in the posterior left ribs causing significant pain and discomfort. Patient denies any other injury or trauma, head injury, loss of consciousness, or other complaints. Patient has a significant past medical history of pancreas transplant, hypothyroidism, hypertension, T.dysconisia. Physical exam shows significant pain on deep inspiration, but clear lung sounds, ecchymosis and tenderness noted over the posterior lateral eighth rib on the left side. Exam otherwise unremarkable. We will perform radiological imaging for evaluation of potential rib fracture. At this time I doubt any pneumo or hemothorax, significant head injury, or any other emergent injury due to mechanism. Patient denies any need for pain medication pending results. Pending radiological imaging patient did request some nausea and pain medication which I feel is understandable. We will give patient Zofran and acetaminophen pending results. Review of radiological imaging and radiologist interpretation shows no acute findings. Patient diagnosed with chest wall contusion. Will place lidocaine patch over area of discomfort to see if this further helps with his pain and patient to follow-up with primary care or return for new or worsening symptoms. After discussion of diagnosis and plan of care patient has no further needs, questions, or concerns and states clear understanding to return to the emergency department for any worsening symptoms. This documentation was generated using [employer] dictation system, please disregard any oddities of phrase or misspellings. Imaging Data Radiologic Study: Attestation: I personally reviewed and interpreted this imaging study as follows: Imaging: X-Ray Radiologist's impression: Exam(s) PROCEDURE INFORMATION: Exam: XR Left Ribs Exam date and time: 12/13/2022 9:49 AM Age: 57 years old Clinical indication: Injury or trauma; Other: Fall-posterior lateral rib injury; Rib area, left side; Blunt trauma TECHNIQUE: Imaging protocol: Radiologic exam of the left ribs. Views: 2 views. COMPARISON: CR XR CHEST 2V PA LATERAL 11/03/2019 11:18 AM FINDINGS: Bones/joints: Normal. Soft tissues: Normal. IMPRESSION: No acute findings. PROCEDURE INFORMATION: Exam: XR Chest Exam date and time: 12/13/2022 9:49 AM Age: 57 years old Clinical indication: Injury or trauma; Other: Fall-posterior lateral rib injury; Rib area, left side; Blunt trauma TECHNIQUE: Imaging protocol: Radiologic exam of the chest. Views: 2 views. COMPARISON: CR XR CHEST 2V PA LATERAL 11/03/2019 11:18 AM FINDINGS: Lungs: Unremarkable. No consolidation. Pleural spaces: Unremarkable. No pleural effusion. No pneumothorax. Heart/Mediastinum: Unremarkable. No cardiomegaly. Bones/joints: Unremarkable. IMPRESSION: No acute findings. HPI General Mode of arrival: ambulatory. Date/Time Provider Initiated Documentation: 12/13/22 08:55. Limitations to Documentation: no limitations. Information obtained by: patient and RN notes reviewed. History of Present Illness 57 year old M presents to the emergency department with the chief complaint of Left posterior chest wall injury, described as moderate, and is localized to the chest (Left posterior chest wall). Patient reports no radiation. Patient started experiencing this hour(s) (1) and it has been constant. No relieving factors improve symptom(s), No exacerbating factors reported . Patient notes no other symptoms.. Patient did receive the following treatments prior to arrival, none Related Data Home Medications Medication Instructions Recorded Confirmed levothyroxine 175 mcg tablet 137 mcg PO DAILY 08/21/14 12/13/22 multivitamin (Daily Multi-Vitamin 1 ea PO DAILY 08/21/14 12/13/22 tablet) magnesium gluconate 27 mg 27 mg PO DAILY 10/12/14 12/13/22 magnesium (500 mg) tablet pantoprazole 40 mg tablet,delayed 40 mg PO BID 05/15/16 12/13/22 release venlafaxine 150 mg tablet,extended 225 mg PO DAILY 07/22/17 12/13/22 release 24 hr ondansetron 4 mg disintegrating 4 mg PO Q6H PRN PRN Nausea / 10/12/17 12/13/22 tablet Vomiting ##20 omega-3 fatty acids 1,000 mg 1,000 mg PO DAILY 10/18/18 12/13/22 capsule (Fish Oil Concentrate) polyethylene glycol 3350 17 17 gm PO PRN PRN 10/18/18 12/13/22 gram/dose oral powder (Miralax) valacyclovir 1 gram tablet 2,000 mg PO PRN PRN 10/18/18 12/13/22 meclizine 25 mg tablet 25 mg PO TID PRN 03/29/19 12/13/22 mycophenolate mofetil 250 mg 250 mg PO 2 CAPS BID 03/29/19 12/13/22 capsule (CellCept) nitroglycerin 0.4 mg sublingual 0.4 mg sublingual Q5M PRN 03/29/19 12/13/22 tablet (Nitrostat) sildenafil 100 mg tablet (Viagra) 100 mg PO PRN PRN 03/29/19 12/13/22 clopidogrel 75 mg tablet (Plavix) 75 mg PO HS 08/08/19 12/13/22 atorvastatin 20 mg tablet (Lipitor) 10 mg PO HS 01/30/20 12/13/22 acetaminophen 500 mg tablet 1,000 mg PO Q6H PRN 02/08/20 12/13/22 (Tylenol Extra Strength) gabapentin 300 mg capsule 300 mg PO DIRECTED 05/15/20 12/13/22 albuterol sulfate 90 mcg/actuation 2 puff inhalation 6XD 04/25/21 12/13/22 aerosol inhaler (ProAir HFA) carvedilol 6.25 mg tablet 6.25 mg PO BID 04/25/21 12/13/22 losartan 100 mg tablet 1 tab PO DAILY 03/05/22 12/13/22 ropinirole 0.25 mg tablet 2 tab PO QHS 03/05/22 12/13/22 fexofenadine 180 mg tablet 180 mg PO DAILY 03/27/22 12/13/22 (Allergy Relief (fexofenadine)) cholecalciferol (vitamin D3) 125 125 mcg PO DAILY 09/15/22 12/13/22 mcg (5,000 unit) capsule hydrochlorothiazide 25 mg tablet 25 mg PO BID 09/15/22 12/13/22 tacrolimus 1 mg capsule, See Rx Instructions PO .COMPLEX 09/15/22 12/13/22 immediate-release (Prograf) verapamil 120 mg tablet,extended 180 mg PO DAILY 09/15/22 12/13/22 release Previous Rx's Medication Instructions Recorded ondansetron 4 mg disintegrating 4 mg PO Q6H PRN PRN Nausea / 10/12/17 tablet Vomiting ##20 Allergies Allergy/AdvReac Type Severity Reaction Status Date / Time metoclopramide HCl Allergy Intermediate TARDIIVE Unverified 12/13/22 09:01 [From Reglan] DYSKINESIA oxycodone HCl [From Percocet] Allergy Intermediate Other (See Unverified 12/13/22 09:01 Comment) simvastatin [From Zocor] Allergy Intermediate MYOCLONUS Unverified 12/13/22 09:01 esomeprazole magnesium AdvReac Diarrhea Unverified 12/13/22 09:01 [From Nexium] DIMOTROPE Allergy Mild Uncoded 12/13/22 09:01 ORNADE DIMOTROPE Allergy Unknown Uncoded 12/13/22 09:01 General Stated Complaint: Fall/Non TraumaCriteria ROBIN: 4 Review of Systems Narrative: 6 systems reviewed and unremarkable except what is marked below. 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) Gastroparesis (Acute) Migraine (Chronic) Vaccine contraindicated (Chronic) NO LIVE VACCINES Left hemiparesis (Acute) 2019 Depression (Chronic) Vertigo (Acute) Acquired deformity of foot (Acute) Asthma, exercise induced (Acute) Vitamin D deficiency, unspecified (Acute) RLS (restless legs syndrome) (Acute) Dyspnea (Acute) Erectile dysfunction (Acute) Bilateral radicular pain (Acute) lower legs Acquired inequality of length of feet (Acute) Scoliosis (Acute) Pancreas transplanted (Acute) Hypothyroidism (acquired) (Acute) Hypertension (Chronic) Neuropathy (Acute) Nail dystrophy (Acute) Sleep apnea (Acute) Interrupted breathing (Acute) Medical History Abnormal movements Acute febrile illness Acute otitis externa of right ear Acute right otitis media Asthma Atopic dermatitis Carpal tunnel syndrome of right wrist (10/12/14) Chest pressure work uped but everthing negative Coxsackie virus infection Difficulty swallowing Dyspnea on exertion Femoroacetabular impingement of left hip Hernia History of diabetes mellitus, type I no longer after transplant Hyponatremia Ingrown toenail Knot in throat Lumbar back pain Lumbar back pain with radiculopathy affecting left lower extremity Near syncope Normal colonoscopy Oropharyngeal dysphagia Right shoulder pain Strain of flexor muscle of left hip Subcutaneous mass of left lower extremity Tardive dyskinesia (10/12/14) Tendinitis of left hip flexor Trigger finger, right middle finger 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) Vocal cord dysfunction Weakness of left lower extremity Surgical History History of appendectomy History of arthroscopic knee surgery Left History of carpal tunnel release Right History of colonoscopy 2014-pitting of colonic mucosa History of colonoscopy (~03/2022) History of esophagogastroduodenoscopy (EGD) History of pancreas transplant 08/27/13 History of shoulder surgery R shoulder Trigger finger, right middle finger S/P release on 02/08/2020 Family History Father COPD (chronic obstructive pulmonary disease) Mother Hypertension Status post heart valve replacement AGE 7 Migraine Parkinsons Brother Enlarged prostate no cancer Other Heart disease Social History Smoking/Tobacco Use Status: Never Smoking risk assessment performed?: Yes Alcohol Intake: never Drug use: Never Substance use type: does not use Household members: family Housing: house Pets and animals: Yes Pets and animals: cat(s) and dog(s) Current gender identity: male What is your relationship status?: Panel score (0-1 are the most socially isolated patients): 1 Seatbelt use: always Do you feel safe at home: Yes Do you feel safe in your relationship?: Yes Exam Const General: cooperative, no acute distress and not ill appearing Orientation: alert, awake and oriented x3 HENMT Mouth: moist mucous membranes Chest Chest: no localized rib tenderness Resp Effort & Inspection: normal respiratory effort, able to speak in complete sentences and no respiratory distress Auscultation: clear to auscultation bilaterally Cardio Rate: regular rate Rhythm: regular rhythm Heart Sounds: S1 normal and S2 normal Back/Spine/Pelvis Thoracic/Lumbar Spine: No thoracic and lumbar spine normal to inspection (Ecchymosis over left rib #8 with local tenderness), No paraspinal tenderness, No thoracic spinal tenderness and No lumbar spinal tenderness Skin General skin exam: no rashes or lesions noted Neuro General: patient alert, patient awake, patient oriented x3, moves all extremities and no focal motor deficits Sensory Exam: no sensory deficits noted Course Vital Signs Vital signs: Vital Signs Temperature 36.9 C 12/13/22 08:59 Pulse 79 12/13/22 08:59 Respiratory Rate 18 12/13/22 08:59 Blood Pressure 149/89 H 12/13/22 08:59 Pulse Oximetry 96 12/13/22 08:59 Temperature 36.9 C 12/13/22 08:59 Temperature Source Oral 12/13/22 08:59 Pulse 79 12/13/22 08:59 Respiratory Rate 18 12/13/22 08:59 Respiratory Effort Normal, Non-Labored 12/13/22 09:01 Blood Pressure 149/89 H 12/13/22 08:59 Pulse Oximetry 96 12/13/22 08:59 Oxygen Delivery Method Room Air 12/13/22 08:59 Oxygen Flow Rate 0 12/13/22 08:59
--- NOTE | 2022-12-13 10:03 | DI.VRAD_ITS ---
PROCEDURE INFORMATION: Exam: XR Left Ribs Exam date and time: 12/13/2022 9:49 AM Age: 57 years old Clinical indication: Injury or trauma; Other: Fall-posterior lateral rib injury; Rib area, left side; Blunt trauma TECHNIQUE: Imaging protocol: Radiologic exam of the left ribs. Views: 2 views. COMPARISON: CR XR CHEST 2V PA LATERAL 11/03/2019 11:18 AM FINDINGS: Bones/joints: Normal. Soft tissues: Normal. IMPRESSION: No acute findings. PROCEDURE INFORMATION: Exam: XR Chest Exam date and time: 12/13/2022 9:49 AM Age: 57 years old Clinical indication: Injury or trauma; Other: Fall-posterior lateral rib injury; Rib area, left side; Blunt trauma TECHNIQUE: Imaging protocol: Radiologic exam of the chest. Views: 2 views. COMPARISON: CR XR CHEST 2V PA LATERAL 11/03/2019 11:18 AM FINDINGS: Lungs: Unremarkable. No consolidation. Pleural spaces: Unremarkable. No pleural effusion. No pneumothorax. Heart/Mediastinum: Unremarkable. No cardiomegaly. Bones/joints: Unremarkable. IMPRESSION: No acute findings. Dictated and Authenticated by: Ammy Van MD. Ordering:ARETHA Guillen MD
[2022-12-13] MEDS: Acetaminophen 500 MG TAB 1000 MG PO (10:15)
[2022-12-13] MEDS: Ondansetron O.D.T. 4 MG TABEF PO (10:16)
[2022-12-13] MEDS: Lidocaine 5% Patch 1 PATCH TP (10:25)
[2022-12-13 10:26] VITALS: BP 142/74; PULSE 65; RESP 18; O2SAT 98
== END 2022-12-13 10:28 | disposition home or self-care (01) ==
PROVIDERS: Emergency Provider Nurse Practitioner Family; PCP Family Medicine
DX: S20.212A Contusion of left front wall of thorax, initial encounter (principal); I10 Essential (primary) hypertension; E03.9 Hypothyroidism, unspecified; J45.909 Unspecified asthma, uncomplicated; E10.9 Type 1 diabetes mellitus without complications; W06.XXXA Fall from bed, initial encounter; W22.09XA Striking against other stationary object, initial encounter
CPT/HCPCS: 99283; 71046; 71100; 99284

== ENCOUNTER → 2023-04-21 01:51 | Outpatient (CLI) | payer BC, SELFPAY ==
--- NOTE | 2023-04-21 | DI.RAD_ITS ---
Exam(s) XR CHEST 2V PA LATERAL EXAM: XR CHEST 2V PA LATERAL CLINICAL HISTORY: ABNL CXR, R91.8, F/U ATELECTASIS. TECHNIQUE: 2D digital imaging was performed. COMPARISON: CR,XR XR RIBS LT W PA LAT CHEST from 12/13/2022 FINDINGS: 2 views: Heart size is normal. The mediastinum is not widened. Lungs are clear. No infiltrates nor pleural effusions. IMPRESSION: No acute pulmonary findings. DATA REPOSITORY: RADIATION DOSE DELIVERED:
== END ==
PROVIDERS: PCP Family Medicine; Visit Provider Family Medicine
DX: R91.8 Other nonspecific abnormal finding of lung field (principal)
CPT/HCPCS: 71046

== ENCOUNTER 2023-04-28 03:20 | Outpatient (CLI) | payer BC, SELFPAY ==
[2023-04-28 08:23] LABS: Anion Gap 7.2 mmol/L (3-11); BUN 16 mg/dL (7-18); CO2 28.8 mmol/L (21.0-32.0); CREATININE 1.3 mg/dL (0.70-1.30); Calcium 9.3 mg/dL (8.5-10.1); Chloride 102 mmol/L (98-107); Estimated GFR 64.88 (mL/min/1.73m2); Glucose 119 mg/dL (74-106); Potassium 4.6 mmol/L (3.5-5.1); Sodium 138 mmol/L (136-145)
== END 2023-04-28 03:21 | disposition home or self-care (01) ==
LOC: LBO 03:20
PROVIDERS: PCP Family Medicine; Visit Provider Internal Medicine Nephrology
DX: E87.1 Hypo-osmolality and hyponatremia (principal); I10 Essential (primary) hypertension; E11.9 Type 2 diabetes mellitus without complications
CPT/HCPCS: 36415; 80048

== ENCOUNTER 2023-06-25 11:03 | Outpatient (REF) | payer BC, SELFPAY ==
[2023-06-25 16:31] LABS: HCT 43.3 % (40.0-50.0); HGB 14.6 g/dL (13.5-17.5); MCH 30.7 pg (27.0-33.0); MCHC 33.7 % (32.0-36.0); MCV 91 fL (80-95); MPV 11.3 fL (8.0-11.0); Platelet Count 227 10^3/uL (130-400); RBC 4.75 10^6/uL (4.36-5.78); RDW 12.6 % (11.8-14.1); RDW-SD 41.7 fL; WBC 7.04 10^3/uL (4.4-10.8)
[2023-06-25 16:49] LABS: BUN 29 mg/dL (7-18); CREATININE 1.3 mg/dL (0.70-1.30); Calcium 9.7 mg/dL (8.5-10.1); Chloride 99 mmol/L (98-107); Estimated GFR 64.88 (mL/min/1.73m2); Glucose 113 mg/dL (74-106); Potassium 4.7 mmol/L (3.5-5.1); Sodium 133 mmol/L (136-145); TSH 1.45 uIU/mL (0.36-3.74)
== END 2023-06-25 11:04 | disposition home or self-care (01) ==
LOC: NCHCN 11:03
PROVIDERS: PCP Family Medicine; Visit Provider Nurse Practitioner Family
DX: R00.2 Palpitations (principal); I25.10 Atherosclerotic heart disease of native coronary artery without angina pectoris
CPT/HCPCS: 80048; 85027; 83735; 84443

== ENCOUNTER 2023-07-16 12:45 | Outpatient (CLI) | payer BC, SELFPAY | END 2023-07-16 12:46 | disposition home or self-care (01) | PROVIDERS: PCP Family Medicine; Visit Provider Nurse Practitioner Family | DX: R00.2 Palpitations (principal); I25.10 Atherosclerotic heart disease of native coronary artery without angina pectoris | CPT/HCPCS: 93246 ==

== ENCOUNTER 2023-08-21 08:44 | Outpatient (CLI) | payer BC, SELFPAY ==
--- NOTE | 2023-08-21 09:48 | W.CARDEVENT ---
Date of service: 08/21/23 Time of Service: 09:48 Cardiac Event Recorder Referring Provider:: Virgen Indications:: Palpitations Cardiac Event Note: The predominant rhythm is sinus with physiologic sinus bradycardia and sinus tachycardia. Minimum heart rate 53 bpm, maximum 138 with average 74 bpm. Rare ventricular ectopics without couplets or ventricular tachycardia Few supraventricular ectopics with 2 episodes of supraventricular tachycardia, longest 4 beats fastest 103 bpm. Patient triggered events do not correspond to any arrhythmias
--- NOTE | 2023-08-21 09:57 | W.CARDEVENT ---
Date of service: 08/21/23 Time of Service: 15:09 Cardiac Event Recorder Referring Provider:: Virgen Indications:: Palpitations Cardiac Event Note: 1. The underlying rhythm is sinus, rate range 53 to 138 bpm with average of 74 bpm. 2. Few ventricular ectopics with 1 couplet, no ventricular tachycardia. 3 several supraventricular ectopic risk with 2 runs of nonsustained supraventricular tachycardia, longest 4 beats and fastest 103 bpm. 4. Patient triggered events do not correspond to any arrhythmias
== END 2023-08-21 08:45 | disposition home or self-care (01) ==
LOC: CARDOPNVT 08:44
PROVIDERS: PCP Family Medicine; Visit Provider Internal Medicine Interventional Cardiology
DX: I25.10 Atherosclerotic heart disease of native coronary artery without angina pectoris (principal); R00.2 Palpitations; I47.10 Supraventricular tachycardia, unspecified
CPT/HCPCS: 00123

== ENCOUNTER 2023-12-05 12:47 | Emergency (ER) | payer BC, SELFPAY ==
[2023-12-05] VITALS (38 sets, daily range): BP systolic 85–115; BP diastolic 57–70; PULSE 60–82; RESP 11–27; TEMP 36.6; O2SAT 93–99
--- NOTE | 2023-12-05 12:45 | RT.EKG_ITS ---
APPROVED REPORT Exam: Resting ECG Reason for Exam: Chest Pain Patient Location: E HR:70 bpm ECG Measurements Heart Rate 70 AXIS MI [id number] P [id number] QRSd 96 QRS 72 QT 393 T 29 QTc 426 Conclusion Accelerated junctional rhythm...absent P waves, accele'd V-rate
--- NOTE | 2023-12-05 13:00 | DI.RAD_ITS ---
Exam(s) XR CHEST 2V PA LATERAL EXAM: XR CHEST 2V PA LATERAL CLINICAL HISTORY: CP. TECHNIQUE: 2D digital imaging was performed. COMPARISON: CR XR CHEST 2V PA LATERAL from 04/21/2023 FINDINGS: 2 views: Heart size is normal. The mediastinum is not widened. Lungs are clear. No infiltrates nor pleural effusions. IMPRESSION: No acute pulmonary findings.No significant change compared to 04/21/2023. DATA REPOSITORY: RADIATION DOSE DELIVERED:
--- NOTE | 2023-12-05 13:10 | W.ED.GENAD ---
Discharge Plan Discharge Details Chief Complaint: Chest Pain Primary Care Provider: Anna Mullen V ED Provider: Rhonda Alvarenga Home Meds and New Rx's Prescriptions: No Action meclizine 25 mg tablet 25 mg PO TID PRN nitroglycerin [Nitrostat] 0.4 mg tablet, sublingual 0.4 mg SL Q5M PRN verapamil 120 mg tablet extended release 180 mg PO DAILY valacyclovir 1 gram tablet 2,000 mg PO PRN PRN polyethylene glycol 3350 [Miralax] 17 gram/dose powder 17 gm PO PRN PRN omega-3 fatty acids [Fish Oil Concentrate] 1,000 mg capsule 1,000 mg PO DAILY hydrochlorothiazide 25 mg tablet 25 mg PO BID isosorbide mononitrate 30 mg tablet extended release 24 hr 30 mg PO DAILY multivitamin [Daily Multi-Vitamin] 1 EACH tablet 1 ea PO DAILY levothyroxine 175 MCG tablet 137 mcg PO DAILY magnesium gluconate 27 MG tablet 27 mg PO DAILY venlafaxine 150 MG tablet extended release 24hr 225 mg PO DAILY mycophenolate mofetil [CellCept] 250 mg capsule 250 mg PO 2 CAPS BID carvedilol 6.25 mg tablet 6.25 mg PO BID Rx Instructions: must administer with a meal/food albuterol sulfate [ProAir HFA] 90 mcg/actuation HFA aerosol inhaler 2 puff inhalation 6XD fexofenadine [Allergy Relief (fexofenadine)] 180 mg tablet 180 mg PO DAILY cholecalciferol (vitamin D3) 125 mcg (5,000 unit) capsule 125 mcg PO DAILY Rx Instructions: reports he is taking 10,000 IU [id number]. 09/15/22 tacrolimus [Prograf] 1 mg capsule See Rx Instructions PO .COMPLEX Rx Instructions: orally BID; 2 caps in the AM, 1 cap in the PM pantoprazole 40 MG tablet,delayed release (DR/EC) 40 mg PO BID gabapentin 300 mg capsule 300 mg PO DIRECTED Rx Instructions: Per pt. takes 300 mg am, 600 mg suppertime, 600 mg HS 05/15/20 ondansetron 4 MG tablet,disintegrating 4 mg PO Q6H PRN PRN (Reason: Nausea / Vomiting) Qty: 20 0RF acetaminophen [Tylenol Extra Strength] 500 mg Tablet 1,000 mg PO Q6H PRN clopidogrel [Plavix] 75 mg Tablet 75 mg PO HS atorvastatin [Lipitor] 20 mg tablet 10 mg PO HS ropinirole 0.25 mg tablet 2 tab PO QHS Patient Comments: TAKE 2 TABLETS ORALLY IN EVENING 1 HOUR BEFORE BEDTIME. MAY INCREASE BY 1 TABLET A WEEK UP TO 4 TABLETS UNTIL RESTLESS LEGS AND BODY CALM DO losartan 100 mg tablet 1 tab PO DAILY HPI General Date/Time Provider Initiated Documentation: 12/05/23 12:51. Limitations to Documentation: no limitations. Information obtained by: patient, RN notes reviewed and old records reviewed. History of Present Illness 58 year old M presents to the emergency department with the chief complaint of chest pain, described as moderate, with intensity rated at 4. Quality is described as aching, and is localized to the chest. Patient reports no radiation. Patient started experiencing this hour(s) and it has been intermittent (has had this intermittently for years). No relieving factors improve symptom(s), No exacerbating factors reported . Patient notes chest pain, headaches (hx of migraines) and malaise; denies confusion, cough, fever/chills, nausea/vomiting, rash and shortness of breath. Patient did receive the following treatments prior to arrival, none Related Data Home Medications Medication Instructions Recorded Confirmed levothyroxine 175 mcg tablet 137 mcg PO DAILY 08/21/14 12/05/23 multivitamin (Daily Multi-Vitamin 1 ea PO DAILY 08/21/14 12/05/23 tablet) magnesium gluconate 27 mg 27 mg PO DAILY 10/12/14 12/05/23 magnesium (500 mg) tablet pantoprazole 40 mg tablet,delayed 40 mg PO BID 05/15/16 12/05/23 release venlafaxine 150 mg tablet,extended 225 mg PO DAILY 07/22/17 12/05/23 release 24 hr ondansetron 4 mg disintegrating 4 mg PO Q6H PRN PRN Nausea / 10/12/17 12/05/23 tablet Vomiting ##20 omega-3 fatty acids 1,000 mg 1,000 mg PO DAILY 10/18/18 12/05/23 capsule (Fish Oil Concentrate) polyethylene glycol 3350 17 17 gm PO PRN PRN 10/18/18 12/05/23 gram/dose oral powder (Miralax) valacyclovir 1 gram tablet 2,000 mg PO PRN PRN 10/18/18 12/05/23 meclizine 25 mg tablet 25 mg PO TID PRN 03/29/19 12/05/23 mycophenolate mofetil 250 mg 250 mg PO 2 CAPS BID 03/29/19 12/05/23 capsule (CellCept) nitroglycerin 0.4 mg sublingual 0.4 mg sublingual Q5M PRN 03/29/19 12/05/23 tablet (Nitrostat) clopidogrel 75 mg tablet (Plavix) 75 mg PO HS 08/08/19 12/05/23 atorvastatin 20 mg tablet (Lipitor) 10 mg PO HS 01/30/20 12/05/23 acetaminophen 500 mg tablet 1,000 mg PO Q6H PRN 02/08/20 12/05/23 (Tylenol Extra Strength) gabapentin 300 mg capsule 300 mg PO DIRECTED 05/15/20 12/05/23 albuterol sulfate 90 mcg/actuation 2 puff inhalation 6XD 04/25/21 12/05/23 aerosol inhaler (ProAir HFA) carvedilol 6.25 mg tablet 6.25 mg PO BID 04/25/21 12/05/23 losartan 100 mg tablet 1 tab PO DAILY 03/05/22 12/05/23 ropinirole 0.25 mg tablet 2 tab PO QHS 03/05/22 12/05/23 fexofenadine 180 mg tablet 180 mg PO DAILY 03/27/22 12/05/23 (Allergy Relief (fexofenadine)) cholecalciferol (vitamin D3) 125 125 mcg PO DAILY 09/15/22 12/05/23 mcg (5,000 unit) capsule hydrochlorothiazide 25 mg tablet 25 mg PO BID 09/15/22 12/05/23 tacrolimus 1 mg capsule, See Rx Instructions PO .COMPLEX 09/15/22 12/05/23 immediate-release (Prograf) verapamil 120 mg tablet,extended 180 mg PO DAILY 09/15/22 12/05/23 release isosorbide mononitrate 30 mg 30 mg PO DAILY 12/24/22 12/05/23 tablet,extended release 24 hr Previous Rx's Medication Instructions Recorded ondansetron 4 mg disintegrating 4 mg PO Q6H PRN PRN Nausea / 10/12/17 tablet Vomiting ##20 Allergies Allergy/AdvReac Type Severity Reaction Status Date / Time metoclopramide HCl Allergy Intermediate TARDIIVE Unverified 12/05/23 12:55 [From Reglan] DYSKINESIA oxycodone HCl [From Percocet] Allergy Intermediate Other (See Unverified 12/05/23 12:55 Comment) simvastatin [From Zocor] Allergy Intermediate MYOCLONUS Unverified 12/05/23 12:55 esomeprazole magnesium AdvReac Diarrhea Unverified 12/05/23 12:55 [From Nexium] DIMOTROPE Allergy Mild Hives Uncoded 12/05/23 12:55 ORNADE DIMOTROPE Allergy Unknown Hives Uncoded 12/05/23 12:55 General Stated Complaint: Chest Pain ROBIN: 2 Review of Systems Constitutional Constitutional: Reports as per HPI, Denies chills, Denies fever(s) and Denies poor appetite Eyes Eyes: Denies change in vision ENT Ears, Nose, Mouth, and Throat: Denies dizziness Cardiovascular Cardiovascular: Reports as per HPI, Denies dyspnea and Denies dyspnea on exertion Respiratory Respiratory: Reports as per HPI, Denies chest congestion, Denies cough, Denies pain on inspiration, Denies pain with cough, Denies dyspnea and Denies dyspnea on exertion Gastrointestinal Gastrointestinal: Reports as per HPI, Denies abdominal pain, Denies diarrhea, Denies nausea and Denies vomiting Genitourinary Genitourinary: Denies system reviewed and no additional complaints, except as documented (denies change in urinary habits) Musculoskeletal Musculoskeletal: Reports as per HPI and Denies back pain Integumentary/Breasts Skin/Breast: Reports as per HPI and Denies rash Neurologic Neurologic: Reports as per HPI and Denies dizziness Exam Const General: cooperative, healthy appearing, comfortable, no acute distress and well developed Nutritional Appearance: average body habitus and well nourished Orientation: alert, awake and oriented x3 HENMT Head: normal to inspection Ears: hearing grossly normal bilaterally Mouth: mucous membranes dry (appears dry on exam) Chest Chest: normal inspection of the chest, normal palpation of entire chest wall, no crepitus and tenderness (central tenderness with palpation, no rash) Resp Effort & Inspection: normal respiratory effort, able to speak in complete sentences and no respiratory distress Auscultation: clear to auscultation bilaterally, no rales, no rhonchi and no wheezes Cardio Rate: regular rate Rhythm: regular rhythm Heart Sounds: S1 normal and S2 normal GI Inspection: normal to inspection, no edema and non-distended Palpation: soft, no hepatosplenomegaly, not firm, no guarding, not rigid and nontender Auscultation: normal bowel sounds Skin General skin exam: no rashes or lesions noted Trauma: no lacerations or abrasions Neuro General: patient alert, patient awake and patient oriented x3 Cognition: normal cognition Speech: speech normal Gait: normal gait Extrem General: normal to inspection, capillary refill normal, no pedal edema, no calf tenderness and normal gait Course Vital Signs Vital signs: Vital Signs Pulse 66 12/05/23 12:51 Respiratory Rate 16 12/05/23 12:51 Blood Pressure 101/64 12/05/23 12:51 Pulse Oximetry 96 12/05/23 12:51 Pulse 70 12/05/23 12:53 Pulse 69 12/05/23 12:53 Respiratory Rate 12 12/05/23 12:59 Respiratory Effort Normal 12/05/23 12:59 Blood Pressure 101/64 12/05/23 12:53 Blood Pressure Mean 76 12/05/23 12:53 Blood Pressure Position Supine 12/05/23 12:51 Pulse Oximetry 96 12/05/23 12:51 Oxygen Delivery Method Room Air 12/05/23 12:51 Oxygen Flow Rate 0 12/05/23 12:51 Pain Level 4 12/05/23 12:51 Medical Decision Making Patient is a pleasant 58-year-old male presenting today with chief complaint of substernal chest pain. Past medical history significant for hypertension, type 1 diabetes status post pancreatic transplant, migraines, CVA with residual left-sided deficits, hypothyroidism, GERD, gastroparesis, tight arm dyskinesia. He reports that he has had intermittent chest pain for the past several years, has become more persistent recently. Patient underwent a cardiac catheterization per his report at [facility] about 6 months ago which she states showed no large vessel disease. However, he does state that there was small vessel disease that was not amenable to stenting. He has had Holter monitors in the past as well as stress testing as well. None of these show significant abnormality. He presents today as the pain has persisted since around 7 AM. States that he was sedentary at the time of the pain came on. Finds that when he stands he can get woozy when he is experiencing this pain. This has also been an ongoing issue for the patient. He states that he was recently ill with a norovirus as was the rest of his family but the symptoms have since resolved. As he is status post transplant, he is very cognizant of his fluid status and reports that he tries to stay well-hydrated. He denies any persistent nausea, vomiting, diarrhea. No abdominal pain. Patient has not had any new medications or any missed doses of his medications. Patient is on Plavix at baseline. Has been taking this as prescribed. He denies any shortness of breath associated with this. On exam, patient appears nontoxic. He is hypotensive. Patient's not tachycardic but he is on beta-kody at baseline which he did take this morning. He does look dehydrated, states that he often feels dehydrated during these episodes. However, with his recent GI illness, this could also be contributing factor and we will begin hydrating the patient. He did report a previous murmur but I am not able to appreciate this on exam today. Lungs are clear. Abdomen is benign. He does have tenderness with palpation on the lower sternum where patient indicates pain. He has no epigastric pain or pain elsewhere with palpation of the abdomen. He has 2+ distal pulses. Concern for potential ACS . Certainly has risk factors for this. However, the chronicity and largely negative workups in the past are somewhat surprising. Has been taking his Plavix, denies any shortness of breath. Do not see etiology to suggest pulmonary embolism at this time. Will augment the Plavix with aspirin. Will obtain a chest x-ray and baseline labs. Discussed this plan with patient who is in agreement. FINDINGS: Tubes, catheters and devices: EKG wires overlie the chest. Lungs: Unremarkable. No consolidation. Pleural spaces: Unremarkable. No pleural effusion. No pneumothorax. Heart/Mediastinum: Unremarkable. No cardiomegaly. Bones/joints: Multilevel degenerative changes of the degenerative changes of the spine. IMPRESSION: No acute cardiopulmonary findings. At the end of my shift, care transitioned to Dr. Calhoun with labs pending. 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 (Acute) Gastroparesis (Acute) Migraine (Chronic) Vaccine contraindicated (Chronic) NO LIVE VACCINES Left hemiparesis (Acute) 2019 Depression (Chronic) Vertigo (Acute) Acquired deformity of foot (Acute) Asthma, exercise induced (Acute) Vitamin D deficiency, unspecified (Acute) RLS (restless legs syndrome) (Acute) Dyspnea (Acute) Erectile dysfunction (Acute) Bilateral radicular pain (Acute) lower legs Acquired inequality of length of feet (Acute) Scoliosis (Acute) Pancreas transplanted (Acute) Hypothyroidism (acquired) (Acute) Hypertension (Chronic) Neuropathy (Acute) Nail dystrophy (Acute) Sleep apnea (Acute) Interrupted breathing (Acute) Medical History Abnormal movements Acute febrile illness Acute otitis externa of right ear Acute right otitis media Asthma Atopic dermatitis Carpal tunnel syndrome of right wrist (10/12/14) Chest pressure work uped but everthing negative Coxsackie virus infection Difficulty swallowing Dyspnea on exertion Femoroacetabular impingement of left hip Hernia History of diabetes mellitus, type I no longer after transplant Hyponatremia Ingrown toenail Knot in throat Lumbar back pain Lumbar back pain with radiculopathy affecting left lower extremity Near syncope Normal colonoscopy Oropharyngeal dysphagia Right shoulder pain Strain of flexor muscle of left hip Subcutaneous mass of left lower extremity Tardive dyskinesia (10/12/14) Tendinitis of left hip flexor Trigger finger, right middle finger 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) Vocal cord dysfunction Weakness of left lower extremity Surgical History History of appendectomy History of arthroscopic knee surgery Left History of carpal tunnel release Right History of colonoscopy 2014-pitting of colonic mucosa History of colonoscopy (~03/2022) History of esophagogastroduodenoscopy (EGD) History of pancreas transplant 08/27/13 History of shoulder surgery R shoulder Trigger finger, right middle finger S/P release on 02/08/2020 Family History Father COPD (chronic obstructive pulmonary disease) Mother Hypertension Status post heart valve replacement AGE 7 Migraine Parkinsons Brother Enlarged prostate no cancer Other Heart disease Social History Smoking/Tobacco Use Status: Never Smoking risk assessment performed?: Yes Alcohol Intake: never Drug use: Never Substance use type: does not use Household members: family Housing: house Pets and animals: Yes Pets and animals: cat(s) and dog(s) Current gender identity: male What is your relationship status?: Panel score (0-1 are the most socially isolated patients): 1 Seatbelt use: always Do you feel safe at home: Yes Do you feel safe in your relationship?: Yes
[2023-12-05] MEDS: Lactated Ringers 1,000 ML 1000 ML IV (13:14)
[2023-12-05] MEDS: Aspirin 81 MG CHEW 324 MG CH (13:15)
[2023-12-05 13:44] LABS: Abs Immature Grans 0.04 10^3/uL (0.0-0.06); Absolute Basophil Count 0.05 10^3/uL (0.0-0.2); Absolute Eosinophil Count 0.28 10^3/uL (0.0-0.7); Absolute Lymphocyte Count 4.59 10^3/uL (1.2-3.4); Absolute Neutrophil Count 4.14 10^3/uL (1.2-6.7); Basophils % 0.5; Eosinophils % 2.8; HCT 43.8 % (40.0-50.0); HGB 14.9 g/dL (13.5-17.5); Immature Grans % 0.4; Lymphocytes % 45.9; MCH 30.6 pg (27.0-33.0); MCV 90 fL (80-95); MPV 10.8 fL (8.0-11.0); Neutrophils % 41.4; Platelet Count 257 10^3/uL (130-400); RBC 4.87 10^6/uL (4.36-5.78); RDW 13.6 % (11.8-14.1); RDW-SD 44.6 fL
--- NOTE | 2023-12-05 13:54 | DI.VRAD_ITS ---
PROCEDURE INFORMATION: Exam: XR Chest Exam date and time: 12/05/2023 1:22 PM Age: 58 years old Clinical indication: Other: Chest pain TECHNIQUE: Imaging protocol: Radiologic exam of the chest. Views: 2 views. COMPARISON: CR XR CHEST 2V PA LATERAL 21/04/2023 09:48 FINDINGS: Tubes, catheters and devices: EKG wires overlie the chest. Lungs: Unremarkable. No consolidation. Pleural spaces: Unremarkable. No pleural effusion. No pneumothorax. Heart/Mediastinum: Unremarkable. No cardiomegaly. Bones/joints: Multilevel degenerative changes of the degenerative changes of the spine. IMPRESSION: No acute cardiopulmonary findings. Dictated and Authenticated by: Maggi Venegas MD. Ordering:FLORENCE Ellis MD
[2023-12-05 14:06] LABS: ALT 41 U/L (16-63); AST 32 U/L (15-37); Albumin 4.4 g/dL (3.4-5.0); Alkaline Phosphatase 144 U/L (46-116); Anion Gap 10.4 mmol/L (3-11); BUN 23 mg/dL (7-18); Bilirubin, Total 2.1 mg/dL (0.2-1.0); CO2 23.6 mmol/L (21.0-32.0); Calcium 9.1 mg/dL (8.5-10.1); Chloride 99 mmol/L (98-107); Estimated GFR 38.45 (mL/min/1.73m2); Glucose 120 mg/dL (74-106); Magnesium 1.9 mg/dL (1.8-2.4); Potassium 4.5 mmol/L (3.5-5.1); Sodium 133 mmol/L (136-145); TSH (W/Ref FT4) 2.37 uIU/mL (0.36-3.74); Total Protein 7.5 g/dL (6.4-8.2); Troponin I < 50 ng/L (< or =60)
[2023-12-05 15:11] LABS: COVID-19 PCR Negative (Negative); Influenza A PCR Negative (Negative); Influenza B PCR Negative (Negative); RSV PCR Negative (Negative)
[2023-12-05 15:12] LABS: Source NASOPHARYNX
[2023-12-05 16:34] LABS: Troponin I < 50 ng/L (< or =60)
--- NOTE | 2023-12-05 16:49 | W.EDPROG ---
Date of service: 12/05/23 Time of Service: 16:49 Medical Decision Making Resting comfortably feeling better, likely component of dehydration. Improved vital signs, chest pain-free. 2 troponin negative. Quality:SDOH Health Related Social Needs: No Data to Display Sign Out Sign Out Data: Sign Out Comment: Care transitioned to Dr. Alexsandra Butts with repeat troponin and chest x-ray pending. Patient here with recurrent chest pain. History of pancreatic transplant. Patient appears dehydrated. LYNNE noted on labs. Responding well to fluids. Recent norovirus infection. Last updated by Rhonda Alvarenga PA at 12/05/23 14:27 Discharge Plan Disposition Patient Disposition: Home Condition: Improving Discharge Details Chief Complaint: Chest Pain Clinical Impression: Chest pain Primary Care Provider: Anna Mullen V ED Provider: Noe Meneses Home Meds and New Rx's Prescriptions: No Action meclizine 25 mg tablet 25 mg PO TID PRN nitroglycerin [Nitrostat] 0.4 mg tablet, sublingual 0.4 mg SL Q5M PRN verapamil 120 mg tablet extended release 180 mg PO DAILY valacyclovir 1 gram tablet 2,000 mg PO PRN PRN polyethylene glycol 3350 [Miralax] 17 gram/dose powder 17 gm PO PRN PRN omega-3 fatty acids [Fish Oil Concentrate] 1,000 mg capsule 1,000 mg PO DAILY hydrochlorothiazide 25 mg tablet 25 mg PO BID isosorbide mononitrate 30 mg tablet extended release 24 hr 30 mg PO DAILY multivitamin [Daily Multi-Vitamin] 1 EACH tablet 1 ea PO DAILY levothyroxine 175 MCG tablet 137 mcg PO DAILY magnesium gluconate 27 MG tablet 27 mg PO DAILY venlafaxine 150 MG tablet extended release 24hr 225 mg PO DAILY mycophenolate mofetil [CellCept] 250 mg capsule 250 mg PO 2 CAPS BID carvedilol 6.25 mg tablet 6.25 mg PO BID Rx Instructions: must administer with a meal/food albuterol sulfate [ProAir HFA] 90 mcg/actuation HFA aerosol inhaler 2 puff inhalation 6XD fexofenadine [Allergy Relief (fexofenadine)] 180 mg tablet 180 mg PO DAILY cholecalciferol (vitamin D3) 125 mcg (5,000 unit) capsule 125 mcg PO DAILY Rx Instructions: reports he is taking 10,000 IU [id number]. 09/15/22 tacrolimus [Prograf] 1 mg capsule See Rx Instructions PO .COMPLEX Rx Instructions: orally BID; 2 caps in the AM, 1 cap in the PM pantoprazole 40 MG tablet,delayed release (DR/EC) 40 mg PO BID gabapentin 300 mg capsule 300 mg PO DIRECTED Rx Instructions: Per pt. takes 300 mg am, 600 mg suppertime, 600 mg HS 05/15/20 ondansetron 4 MG tablet,disintegrating 4 mg PO Q6H PRN PRN (Reason: Nausea / Vomiting) Qty: 20 0RF acetaminophen [Tylenol Extra Strength] 500 mg Tablet 1,000 mg PO Q6H PRN clopidogrel [Plavix] 75 mg Tablet 75 mg PO HS atorvastatin [Lipitor] 20 mg tablet 10 mg PO HS ropinirole 0.25 mg tablet 2 tab PO QHS Patient Comments: TAKE 2 TABLETS ORALLY IN EVENING 1 HOUR BEFORE BEDTIME. MAY INCREASE BY 1 TABLET A WEEK UP TO 4 TABLETS UNTIL RESTLESS LEGS AND BODY CALM DO losartan 100 mg tablet 1 tab PO DAILY Discharge Instructions Instructions: Chest Pain (ED)
== END 2023-12-05 17:03 | disposition home or self-care (01) ==
PROVIDERS: Physician Assistant; Emergency Provider Emergency Medicine; PCP Family Medicine
DX: R07.9 Chest pain, unspecified (principal); E86.0 Dehydration; E10.9 Type 1 diabetes mellitus without complications; I10 Essential (primary) hypertension; I69.354 Hemiplegia and hemiparesis following cerebral infarction affecting left non-dominant side; Z11.52 Encounter for screening for COVID-19; Z79.02 Long term (current) use of antithrombotics/antiplatelets; Z94.83 Pancreas transplant status; Z79.899 Other long term (current) drug therapy
CPT/HCPCS: 00123; 36415; 80053; 87637; 93005; 96360; 99285; 71046; 83735; 84443; 84484; 85025; 93010; 99284

== ENCOUNTER 2023-12-28 08:15 | Outpatient (CLI) | payer BC, SELFPAY | END 2023-12-28 08:16 | disposition home or self-care (01) | PROVIDERS: PCP Family Medicine; Visit Provider Family Medicine | DX: R07.9 Chest pain, unspecified (principal) | CPT/HCPCS: 93270 ==

== ENCOUNTER 2024-01-28 12:21 | Outpatient (CLI) | payer BC, SELFPAY ==
--- NOTE | 2024-01-29 12:27 | W.CARDEVENT ---
Date of service: 01/29/24 Time of Service: 12:27 Cardiac Event Recorder Referring Provider:: Anna Mullen Indications:: Chest pain Cardiac Event Note: Cardiac event monitor. Patient was monitored for 29 days Rhythm throughout was sinus. Average heart rate was 73. Minimum was 58, maximum 105 There were rare ventricular ectopic beats. Some of these correlated with symptoms There was no atrial fibrillation no high-grade AV block no pauses greater than 3 seconds Reported symptoms correlated either to sinus rhythm without dysrhythmia, rarely to PVCs
== END 2024-01-28 12:22 | disposition home or self-care (01) ==
LOC: CARDOPNVT 12:21
PROVIDERS: PCP Family Medicine; Visit Provider Internal Medicine Cardiovascular Disease
DX: R07.9 Chest pain, unspecified (principal)

== ENCOUNTER 2024-02-14 11:21 | Emergency (ER) | payer BC, SELFPAY ==
[2024-02-14] VITALS (9 sets, daily range): BP systolic 134–142; BP diastolic 66–74; PULSE 74–83; RESP 16; TEMP 37.4; O2SAT 95–99
--- NOTE | 2024-02-14 12:15 | DI.RAD_ITS ---
Exam(s) XR HIP LT COMPLETE AP PELVIS EXAM: XR HIP LT COMPLETE AP PELVIS CLINICAL HISTORY: left hip pain. TECHNIQUE: 2D digital imaging was performed of the left hip. Two views were obtained. AP pelvis an d lateral left hip views were obtained. COMPARISON: CR XR HIP LT COMPLETE AP PELVIS from 10/18/2020 FINDINGS: BONES: No acute fracture is present. No bony destructive lesion is seen. JOINTS: No dislocation present. There are marked degenerative changes seen in the lower lumbar spine. There is mild narrowing of the hip joints bilaterally. The sacroiliac joints and symphysis pubis a re unremarkable. SOFT TISSUE: Normal. IMPRESSION: No acute fracture or dislocation. DATA REPOSITORY: RADIATION DOSE DELIVERED:
[2024-02-14] MEDS: ACETAMINOPHEN 1,000 MG/100 ML BTL 400 MG IVPB (12:30)
[2024-02-14] MEDS: Normal Saline 500 ML IV (12:30)
[2024-02-14 12:31] LABS: Abs Immature Grans 0.04 10^3/uL (0.0-0.06); Absolute Basophil Count 0.06 10^3/uL (0.0-0.2); Absolute Eosinophil Count 0.22 10^3/uL (0.0-0.7); Absolute Lymphocyte Count 3.29 10^3/uL (1.2-3.4); Absolute Monocyte Count 1.05 10^3/uL (0.1-0.8); Absolute Neutrophil Count 9.21 10^3/uL (1.2-6.7); Basophils % 0.4 %; Eosinophils % 1.6 %; HGB 14.1 g/dL (13.5-17.5); Immature Grans % 0.3 %; Lymphocytes % 23.7 %; MCH 30.8 pg (27.0-33.0); MCHC 33.6 % (32.0-36.0); MCV 92 fL (80-95); MPV 10.6 fL (8.0-11.0); Monocytes % 7.6 %; Neutrophils % 66.4 %; Platelet Count 194 10^3/uL (130-400); RBC 4.58 10^6/uL (4.36-5.78); RDW 13.3 % (11.8-14.1); RDW-SD 43.9 fL; WBC 13.87 10^3/uL (4.4-10.8)
[2024-02-14 12:46] LABS: ALT 30 U/L (16-63); AST 18 U/L (15-37); Albumin 4.1 g/dL (3.4-5.0); Alkaline Phosphatase 131 U/L (46-116); Anion Gap 8.5 mmol/L (3-11); BUN 18 mg/dL (7-18); Bilirubin, Total 1.4 mg/dL (0.2-1.0); CO2 27.5 mmol/L (21.0-32.0); CREATININE 1.3 mg/dL (0.70-1.30); Calcium 8.9 mg/dL (8.5-10.1); Chloride 100 mmol/L (98-107); Estimated GFR 64.47 (mL/min/1.73m2); Glucose 107 mg/dL (74-106); Lipase 27 U/L (16-77); Potassium 4.4 mmol/L (3.5-5.1); Sodium 136 mmol/L (136-145); Total Protein 7.2 g/dL (6.4-8.2)
[2024-02-14] MEDS: Omnipaque 350 MG/ML 100 ML BTL IJ (13:15)
[2024-02-14] MEDS: Normal Saline - Diluent 50 ML VIAL IJ (13:16)
--- NOTE | 2024-02-14 13:17 | DI.CT_ITS ---
Exam(s) CT HEAD CERVICAL SPINE WO EXAM: CT HEAD CERVICAL SPINE WO CLINICAL HISTORY: fall, HI, headache. TECHNIQUE: Imaging Protocol: Axial computed tomography images with coronal and sagittal reformatted images were created and reviewed COMPARISON: CT CT HEAD WO from 04/20/2020 FINDINGS: CT Head: Ventricles and Extra axial spaces: Normal in size and morphology for the patient's age. Hemorrhage: None. Cerebral parenchyma: Normal. Midline shift: None. Brainstem/Cerebellum: Normal. Calvarium: Normal. Visualized Paranasal sinuses/Mastoids: Clear. Soft Tissues: Unremarkable. CT Cervical Spine: Bones: No acute fracture or subluxation. Moderately severe degenerative changes are seen throughout t he cervical spine. There is reversal of the normal cervical lordosis which is likely degenerative in nature. Soft Tissues: Unremarkable. Lung Apices: Clear. IMPRESSION: 1. No acute intracranial process. 2. No acute fracture or subluxation in the cervical spine. RADIATION DOSE DELIVERED: Total DLP DATA REPOSITORY: All CT scans at this facility are submitted to the National Radiology Data Registry (NRDR) Dose Index Registry (DIR) with the [employer] ([employer]). RADIATION OPTIMIZATION: All CT scans at this facility use at least one of these dose optimization te chniques: automated exposure control; mA and/or kV adjustment per patient size (includes targeted exa ms where dose is matched to clinical indication); or iterative reconstruction.
--- NOTE | 2024-02-14 13:30 | DI.CT_ITS ---
Exam(s) CT CHEST/ABD/PEL W CT THORACIC LUMBAR SPINE REC EXAM: CT CHEST/ABD/PEL W and CT thoracic and lumbar spine recons CLINICAL HISTORY: left flank and thoracic injury after fall, hx euceda TECHNIQUE: Imaging Protocol: Axial computed tomography images with coronal and sagittal reformatted images were created and reviewed CONTRAST MATERIAL: Intravenous: Omnipaque 350 contrast volume:100 mL Oral: No COMPARISON: CT CHEST ABD PELVIS WO CONTRAST from 10/12/[address] CHEST PE CTA from 12/27/2018 CT,NM,TMT NM MPI REST STRESS GRP from 04/11/[address] THORACIC LUMBAR SPINE REC from 02/14/2024 FINDINGS: CHEST: Tracheobronchial tree: Patent where visualized. Pulmonary parenchyma: There is an infiltrate seen in the left lower lobe which may represent a pulmon jesse contusion or atelectasis. The lungs are otherwise clear. No architectural distortion. Visualized thyroid gland: Unremarkable. Mediastinum and Jessica: No dominant adenopathy or fluid collection. The esophagus is unremarkable. Pleura: No effusion or pneumothorax. Heart: The heart is not dilated. Coronary artery calcification is present. No pericardial effusion. Pulmonary arteries: Due to the timing of the bolus, pulmonary artery opacification with suboptimal fo r evaluation of pulmonary emboli. Aorta: Thoracic aorta non-dilated. Atherosclerotic calcification is present. Lymph nodes: Within normal limits. Soft tissues: There is soft tissue edema seen on the back. No radiopaque foreign bodies are seen. T his likely reflects mild soft tissue injury. There is mild gynecomastia. Bones:Within normal limits for the patient's age. No acute displaced rib fractures. Thoracic spine recons: There are degenerative changes seen throughout the thoracic spine. No acute f ractures or subluxations are present. ABDOMEN: Liver: Normal density. No measurable mass. Portal, Superior Mesenteric, and Splenic Veins: Unremarkable. Gallbladder and Biliary Tract: No radiodense calculus or dilation. Pancreas: Normal density, no abnormal calcifications or inflammatory process. Spleen: Normal. Adrenals: No masses seen. Kidneys: Normal size, contour and axis. No radiodense stones or obstructive uropathy. No masses seen. Abdominal Aorta: Abdominal portion non-dilated. Atherosclerotic calcification is present. Bowel: No obstruction or bowel wall thickening. There is a small bowel anastomosis in the central abd omen. The stomach is incompletely distended limiting evaluation. There is no evidence of appendicit is. Peritoneal Cavity: No ascites, collection or mesenteric inflammatory response. No free air. Lymph Nodes: Within normal limits. Bones: Within normal limits for the patient's age. Soft Tissues: There is a fat containing umbilical hernia. PELVIS: Bladder: Symmetric distention, no gross wall thickening. Reproductive Organs: Unremarkable as visualized. Lymph Nodes: Within normal limits. Bones: Within normal limits. Lumbar spine recons: Old compression deformities are seen in the lumbar spine. No acute fracture is identified. Moderately severe degenerative changes are present throughout the lumbar spine character ized by disc space narrowing and endplate osteophytes. Vacuum discs are present at all levels of the lumbar spine. Degenerative facet arthropathy is present. Multilevel central spinal canal or neural foraminal stenosis is present. There is a right convex curvature of the lumbar spine. IMPRESSION: 1. Left basilar infiltrate which may represent atelectasis. Pulmonary contusion should also be consi dered. 2. No acute abdominal or pelvic process. 3. No acute fracture or subluxation is seen in the thoracic or lumbar spine. RADIATION DOSE DELIVERED: Total DLP DATA REPOSITORY: All CT scans at this facility are submitted to the National Radiology Data Registry (NRDR) Dose Index Registry (DIR) with the [employer] (ACR). RADIATION OPTIMIZATION: All CT scans at this facility use at least one of these dose optimization te chniques: automated exposure control; mA and/or kV adjustment per patient size (includes targeted exa ms where dose is matched to clinical indication); or iterative reconstruction.
[2024-02-14 14:00] LABS: Bilirubin Negative (Negative); Blood Negative (Negative); Clarity Clear (Clear); Glucose Negative (Negative); Ketones Negative (Negative); Leukocyte Esterase Negative (Negative); Nitrite Negative (Negative); Urobilinogen 0.2 mg/dL (Up to 0.2)
--- NOTE | 2024-02-14 14:21 | DI.VRAD_ITS ---
PROCEDURE INFORMATION: Exam: CT Head Without Contrast Exam date and time: 02/14/2024 1:06 PM Age: 58 years old Clinical indication: Other: Fall, hi, headache TECHNIQUE: Imaging protocol: Computed tomography of the head without contrast. COMPARISON: CT HEAD WO 04/20/2020 9:20 AM FINDINGS: Brain: Normal. No intraxial or extraaxial hemorrhage. No infarct visible at this time. Unremarkable white matter. No mass effect. No significant involutional change. Cerebral ventricles: Normal. No ventriculomegaly or midline shift. Pituitary gland and sella: Normal. No enlargement. Paranasal sinuses: Visualized sinuses are unremarkable. No fluid levels or mucosal thickening. Mastoid air cells: Visualized mastoid air cells are well aerated. Bones: Unremarkable. No acute fracture. Soft tissues: Unremarkable. Vasculature: No significant atherosclerotic calcification. IMPRESSION: Normal head CT. PROCEDURE INFORMATION: Exam: CT Cervical Spine Without Contrast Exam date and time: 02/14/2024 1:06 PM Age: 58 years old Clinical indication: Other: Fall, hi, headache TECHNIQUE: Imaging protocol: Computed tomography of the cervical spine without contrast. COMPARISON: CT BRAIN NECK CTA 08/06/2019 7:03 AM FINDINGS: Bones: Cervical vertebrae show no acute fracture. There is generalized disc space narrowing at all levels below C2-C3. The odontoid is intact. In the posterior column facet joints are normally aligned with no fracture and with mild hypertrophic changes. Lungs: Lung apices are clear. Soft tissues: Unremarkable. No prevertebral soft tissue swelling. IMPRESSION: No acute findings. Dictated and Authenticated by: Shaji Boogie MD. Ordering:LUCI Stein MD
--- NOTE | 2024-02-14 14:39 | DI.VRAD_ITS ---
PROCEDURE INFORMATION: Exam: CT Chest With Contrast; Diagnostic Exam date and time: 02/14/2024 1:14 PM Age: 58 years old Clinical indication: Other: Left hip pain TECHNIQUE: Imaging protocol: Diagnostic computed tomography of the chest with contrast. Contrast material: OMNIPAQUE; Contrast volume: 100 ml; Contrast route: INTRAVENOUS (IV); COMPARISON: CT CHEST PE CTA 12/27/2018 9:48 PM FINDINGS: Lungs: There are linear opacities noted at the left lung base likely related atelectasis. No lobar consolidation identified. No endobronchial lesion appreciated. Pleural spaces: No significant pleural effusion or pneumothorax. Heart: Heart size is unremarkable, unchanged. Vascular calcification is noted. There is no significant pericardial effusion Lymph nodes: No significant adenopathy identified.. Vasculature: Aorta is nonaneurysmal. There is no acute aortic abnormality. Contrast bolus is suboptimal for evaluation of the pulmonary arteries. Contrast is prominent in the aorta is similar to the pulmonary arteries. However no large proximal intraluminal filling defect or thrombus is identified. Peripheral emboli are not excluded on the basis of this exam. Bones/joints: Degenerative changes are seen in the thoracic spine. There is no acute bony abnormality identified. There are old healed left posterior rib fractures. Soft tissues: No significant subcutaneous abnormality identified. IMPRESSION: 1. Examination is limited for evaluation of pulmonary emboli due to timing of the contrast bolus. No large or central embolus is identified. Peripheral emboli cannot be excluded. 2. Probable mild left basilar atelectasis. No other significant consolidation. PROCEDURE INFORMATION: Exam: CT Abdomen And Pelvis With Contrast Exam date and time: 02/14/2024 1:14 PM Age: 58 years old Clinical indication: Other: Left hip pain TECHNIQUE: Imaging protocol: Computed tomography of the abdomen and pelvis with contrast. Contrast material: OMNIPAQUE; Contrast volume: 100 ml; Contrast route: INTRAVENOUS (IV); COMPARISON: CT CHEST ABD PELVIS WO CONTRAST 10/12/2017 7:05 AM FINDINGS: Liver: No new focal intrahepatic abnormality is identified. Gallbladder and bile ducts: No calcified gallstones. No biliary ductal dilatation. Pancreas: Pancreas is small. History of pancreatic transplant. Spleen: Spleen is unremarkable Adrenal glands: Adrenals are unremarkable Kidneys and ureters: No radiopaque urinary tract calculi. No hydronephrosis. No discrete renal cortical mass. Stomach and bowel: Evaluation of the bowel is limited without oral contrast. No evidence of bowel obstruction. Patient has had prior small bowel surgery. No new findings identified. Appendix: No evidence of acute appendicitis Intraperitoneal space: No free fluid focal collections or free intraperitoneal air. Vasculature: Aorta is nonaneurysmal. The. Lymph nodes: No significant adenopathy Urinary bladder: Bladder is unremarkable Reproductive: Prostate gland, seminal vesicles are unremarkable Bones/joints: There is scoliosis convex to the right in the lumbar spine. There are findings consistent with advanced lumbar spondylosis, degenerative disc disease. There is vacuum phenomenon at multiple levels. There are disc bulges spondylitic changes of the endplates, facet arthropathy. Central spinal stenosis appears most prominent at L4-L5. There is multilevel foraminal stenosis. This appears severe on the left at L4-L5 but is present at multiple additional levels. No definite acute or destructive bony abnormality is identified. Soft tissues: There is a fat containing umbilical hernia. No significant subcutaneous abnormality is identified. IMPRESSION: 1. No new or acute findings identified. 2. Scoliosis, lumbar spondylosis, degenerative disc disease. This was also previously identified. Dictated and Authenticated by: Radha Genao MD. Ordering:LUCI Stein MD
--- NOTE | 2024-02-14 14:41 | DI.VRAD_ITS ---
PROCEDURE INFORMATION: Exam: XR Left Hip Exam date and time: 02/14/2024 1:23 PM Age: 58 years old Clinical indication: Other: Left hip pain TECHNIQUE: Imaging protocol: Radiologic exam of the left hip. Views: 2 or 3 views hip with pelvis when performed. COMPARISON: CT CHEST/ABD/PEL W 02/14/2024 1:14 PM FINDINGS: Bones/joints: Degenerative changes are seen in the lumbar spine. Hip joints are symmetric. No acute fracture identified. Findings consistent with mild osteitis pubis. SI joints are symmetric . Soft tissues: Unremarkable by plain film exam. IMPRESSION: Degenerative changes in the lumbar spine. No acute fracture identified Dictated and Authenticated by: Radha Genao MD. Ordering:LUCI Stein MD
--- NOTE | 2024-02-14 14:53 | DI.VRAD_ITS ---
PROCEDURE INFORMATION: Exam: CT Thoracic Spine Without Contrast Exam date and time: 02/14/2024 1:14 PM Age: 58 years old Clinical indication: Other: Fall, back injury TECHNIQUE: Imaging protocol: Computed tomography of the thoracic spine without contrast. COMPARISON: CT CHEST/ABD/PEL W 02/14/2024 1:14 PM FINDINGS: Bones/joints: There is scoliosis, it is convex to the right in the lower thoracic spine into the left at the thoracolumbar junction. There is no evidence of acute fracture in the thoracic spine. There is no decrease of vertebral body height. There is no acute or destructive bony abnormality identified. There is mild disc space narrowing in the thoracic spine. Small Schmorl's nodes are noted particularly seen at the superior endplate of T6, inferior endplate of T8. Additional smaller Schmorl's nodes are noted. There is no significant decrease of vertebral body height. No definite acute or destructive bony abnormality is identified. There are disc bulges in the thoracic spine. There are spondylitic changes of the endplates. There is mild narrowing of the canal at the level of the disc spaces. This is particularly seen at T6-T7, T7-T8. At T8-T9 there is a disc osteophyte complex also with narrowing of the canal. Calcification is seen in the ventral aspect of the canal posterior to the T8 vertebral body nonspecific, possibly disc calcification. There is also narrowing of the canal T9-T10, T10-T11, T11-T12. Narrowing of the canal in the thoracic spine appears most prominent at T11-T12. Degenerative changes also lead to foraminal narrowing at multiple levels. This appears most prominent on the right at T11-T12. Evaluation of the discs is limited by CT exam but no large soft protrusion or extrusion is identified. No acute/displaced rib fracture is identified at this field of view. Soft tissues: For further evaluation of the soft tissues of the chest please see chest CT dictated separately. IMPRESSION: Thoracic spondylosis, degenerative disc disease. Degenerative changes lead to narrowing of the canal, foramina most prominent at T11-T12. No acute fracture identified PROCEDURE INFORMATION: Exam: CT Lumbar Spine Without Contrast Exam date and time: 02/14/2024 1:14 PM Age: 58 years old Clinical indication: Other: Fall, back injury TECHNIQUE: Imaging protocol: Computed tomography of the lumbar spine without contrast. COMPARISON: MR LUMBAR SPINE WO 04/20/2020 9:56 AM FINDINGS: Bones/joints: There is scoliosis in the lumbar spine, it is convex to the right with the apex of the curvature at approximately the L2-L3 disc space. There is no evidence of an acute fracture in the lumbar spine. There is no decrease of vertebral body height. There is no acute or destructive bony abnormality identified. There are discogenic endplate changes noted at multiple levels most prominent on the left laterally at L2-L3, L4-L5 and on the right at L5-S1. There is disc space narrowing at all visualized levels. Vacuum phenomenon is noted. There are disc bulges spondylitic changes of the endplates, facet arthropathy. There is narrowing of the canal/stenosis at the level of the disc spaces. This appears most prominent at L4-L5 followed by L5-S1. The degenerative changes also lead to foraminal narrowing. This is prominent/severe at L4-L5 greater on the left than the right and right greater than left at L5-S1. This may affect the exiting 4th, 5th nerve roots. There is also prominent left foraminal stenosis noted at L2-L3, L1-L2. Soft tissues: For further evaluation of the abdomen, pelvis please see this report dictated separately. IMPRESSION: 1. No acute fracture 2. Scoliosis, lumbar spondylosis, degenerative disc disease with spinal stenosis most prominent at L4-L5. Multilevel foraminal stenosis. Dictated and Authenticated by: Radha Genao MD. Ordering:LUCI Stein MD
--- NOTE | 2024-02-15 08:15 | ED.GENADUL_ITS ---
Discharge Plan Disposition Patient Disposition: Home Condition: Stable Discharge Details Clinical Impression: Concussion, Fall, Contusion of hip, left Primary Care Provider: Anna Mullen V ED Provider: Sarita Weiss Home Meds and New Rx's Prescriptions: New cyclobenzaprine 5 mg tablet 5 mg PO TID PRNQty: 10 0RF Continued meclizine 25 mg tablet 25 mg PO TID PRN nitroglycerin [Nitrostat] 0.4 mg tablet, sublingual 0.4 mg SL Q5M PRN verapamil 120 mg tablet extended release 180 mg PO DAILY valacyclovir 1 gram tablet 2,000 mg PO PRN PRN Patient Comments: not taking but have available if needed. polyethylene glycol 3350 [Miralax] 17 gram/dose powder 17 gm PO PRN PRN omega-3 fatty acids [Fish Oil Concentrate] 1,000 mg capsule 1,000 mg PO DAILY hydrochlorothiazide 25 mg tablet 25 mg PO BID isosorbide mononitrate 30 mg tablet extended release 24 hr 30 mg PO DAILY multivitamin [Daily Multi-Vitamin] 1 EACH tablet 1 ea PO DAILY levothyroxine 175 MCG tablet 137 mcg PO DAILY magnesium gluconate 27 MG tablet 27 mg PO DAILY venlafaxine 150 MG tablet extended release 24hr 225 mg PO DAILY mycophenolate mofetil [CellCept] 250 mg capsule 250 mg PO 2 CAPS BID carvedilol 6.25 mg tablet 6.25 mg PO BID Rx Instructions: must administer with a meal/food albuterol sulfate [ProAir HFA] 90 mcg/actuation HFA aerosol inhaler 2 puff inhalation 6XD fexofenadine [Allergy Relief (fexofenadine)] 180 mg tablet 180 mg PO DAILY cholecalciferol (vitamin D3) 125 mcg (5,000 unit) capsule 125 mcg PO DAILY Rx Instructions: reports he is taking 10,000 IU [id number]. 09/15/22 tacrolimus [Prograf] 1 mg capsule See Rx Instructions PO .COMPLEX Rx Instructions: orally BID; 2 caps in the AM, 1 cap in the PM pantoprazole 40 MG tablet,delayed release (DR/EC) 40 mg PO BID gabapentin 300 mg capsule 300 mg PO DIRECTED Rx Instructions: Per pt. takes 300 mg am, 600 mg suppertime, 600 mg HS 05/15/20 ondansetron 4 MG tablet,disintegrating 4 mg PO Q6H PRN PRN (Reason: Nausea / Vomiting) Qty: 20 0RF acetaminophen [Tylenol Extra Strength] 500 mg Tablet 1,000 mg PO Q6H PRN tacrolimus [Prograf] 0.5 mg capsule 0.5 mg PO DAILY hydralazine 50 mg tablet 50 mg PO DAILY carvedilol 12.5 mg tablet 12.5 mg PO BID Patient Comments: TAKE ONE TABLET BY MOUTH TWICE A DAY bupropion HCl 300 mg tablet extended release 24 hr 300 mg PO DAILY Patient Comments: TAKE ONE TABLET BY MOUTH EVERY MORNING clopidogrel [Plavix] 75 mg Tablet 75 mg PO HS atorvastatin [Lipitor] 20 mg tablet 10 mg PO HS ropinirole 0.25 mg tablet 2 tab PO QHS Patient Comments: TAKE 2 TABLETS ORALLY IN EVENING 1 HOUR BEFORE BEDTIME. MAY INCREASE BY 1 TABLET A WEEK UP TO 4 TABLETS UNTIL RESTLESS LEGS AND BODY CALM DO losartan 100 mg tablet 1 tab PO DAILY Discharge Instructions Instructions: Minor Contusion ED, Concussion, Adult ED Additional Instructions: Take the Flexeril 5 mg as needed at night before going to bed Take Tylenol 500 mg every 4-6 hours as needed for discomfort Follow-up with your transplant team about your white blood cell count as it is slightly elevated, it sounds like this is being evaluated already Should you develop fever, chills, or any new or worsening complaints, please return for reassessment As you have a headache and did hit your head I am going to diagnose you with a concussion which is a clinical diagnosis, there is no evidence of bleeding or any thing serious noted on your CTs today, however treat yourself supportively with fluids, Tylenol Use caution when ambulating when you take your Flexeril Use your walker as needed for assistance return earlier should you have vomiting, worsening headache, or with any new or progressing symptoms Referrals: Anna Mullen MD [Primary Care Provider] - 1 day Discharge Data Discharge Date/Time-TO BE ENTERED AT DEPARTURE: 02/14/24 15:30 HPI General Date/Time Provider Initiated Documentation: 02/14/24 11:57 . HPI Narrative: This 58-year-old male with history of pancreatic transplant chronically immunosuppressed gastroparesis, depression, hypothyroidism presents with report of trip and fall while getting up 3 days ago in the morning. He hit his head on the side of the bedside stand and fell to the floor and hit his left hip. He states he has been having headaches and left hip pain since event occurred. He does take clopidogrel daily for history of CVA. He states he is able to ambulate with discomfort he denies any dizziness loss of consciousness. He has some mild neck pain and back pain. Denies any chest discomfort or shortness of breath. Denies any abdominal pain, nausea, vomiting. Does report left lower thoracic pain and left hip pain Related Data Home Medications Medication Instructions Recorded Confirmed levothyroxine 175 mcg tablet 137 mcg PO DAILY 08/21/14 02/14/24 multivitamin (Daily Multi-Vitamin 1 ea PO DAILY 08/21/14 02/14/24 tablet) magnesium gluconate 27 mg 27 mg PO DAILY 10/12/14 02/14/24 magnesium (500 mg) tablet pantoprazole 40 mg tablet,delayed 40 mg PO BID 05/15/16 02/14/24 release venlafaxine 150 mg tablet,extended 225 mg PO DAILY 07/22/17 02/14/24 release 24 hr ondansetron 4 mg disintegrating 4 mg PO Q6H PRN PRN Nausea / 10/12/17 02/14/24 tablet Vomiting ##20 omega-3 fatty acids 1,000 mg 1,000 mg PO DAILY 10/18/18 02/14/24 capsule (Fish Oil Concentrate) polyethylene glycol 3350 17 17 gm PO PRN PRN 10/18/18 02/14/24 gram/dose oral powder (Miralax) valacyclovir 1 gram tablet 2,000 mg PO PRN PRN 10/18/18 02/14/24 meclizine 25 mg tablet 25 mg PO TID PRN 03/29/19 02/14/24 mycophenolate mofetil 250 mg 250 mg PO 2 CAPS BID 03/29/19 02/14/24 capsule (CellCept) nitroglycerin 0.4 mg sublingual 0.4 mg sublingual Q5M PRN 03/29/19 02/14/24 tablet (Nitrostat) clopidogrel 75 mg tablet (Plavix) 75 mg PO HS 08/08/19 02/14/24 atorvastatin 20 mg tablet (Lipitor) 10 mg PO HS 01/30/20 02/14/24 acetaminophen 500 mg tablet 1,000 mg PO Q6H PRN 02/08/20 02/14/24 (Tylenol Extra Strength) gabapentin 300 mg capsule 300 mg PO DIRECTED 05/15/20 02/14/24 albuterol sulfate 90 mcg/actuation 2 puff inhalation 6XD 04/25/21 02/14/24 aerosol inhaler (ProAir HFA) carvedilol 6.25 mg tablet 6.25 mg PO BID 04/25/21 02/14/24 losartan 100 mg tablet 1 tab PO DAILY 03/05/22 02/14/24 ropinirole 0.25 mg tablet 2 tab PO QHS 03/05/22 02/14/24 fexofenadine 180 mg tablet 180 mg PO DAILY 03/27/22 02/14/24 (Allergy Relief (fexofenadine)) cholecalciferol (vitamin D3) 125 125 mcg PO DAILY 09/15/22 02/14/24 mcg (5,000 unit) capsule hydrochlorothiazide 25 mg tablet 25 mg PO BID 09/15/22 02/14/24 tacrolimus 1 mg capsule, See Rx Instructions PO .COMPLEX 09/15/22 02/14/24 immediate-release (Prograf) verapamil 120 mg tablet,extended 180 mg PO DAILY 09/15/22 02/14/24 release isosorbide mononitrate 30 mg 30 mg PO DAILY 12/24/22 02/14/24 tablet,extended release 24 hr bupropion HCl 300 mg 24 hr tablet, 300 mg PO DAILY 02/14/24 02/14/24 extended release carvedilol 12.5 mg tablet 12.5 mg PO BID 02/14/24 02/14/24 cyclobenzaprine 5 mg tablet 5 mg PO TID PRN #10 tabs 02/14/24 hydralazine 50 mg tablet 50 mg PO DAILY 02/14/24 02/14/24 tacrolimus 0.5 mg capsule, 0.5 mg PO DAILY 02/14/24 02/14/24 immediate-release (Prograf) Previous Rx's Medication Instructions Recorded ondansetron 4 mg disintegrating 4 mg PO Q6H PRN PRN Nausea / 10/12/17 tablet Vomiting ##20 cyclobenzaprine 5 mg tablet 5 mg PO TID PRN #10 tabs 02/14/24 Allergies Allergy/AdvReac Type Severity Reaction Status Date / Time metoclopramide HCl Allergy Intermediate TARDIIVE Unverified 12/05/23 12:55 [From Reglan] DYSKINESIA oxycodone HCl [From Percocet] Allergy Intermediate Other (See Unverified 12/05/23 12:55 Comment) simvastatin [From Zocor] Allergy Intermediate MYOCLONUS Unverified 12/05/23 12:55 esomeprazole magnesium AdvReac Diarrhea Unverified 12/05/23 12:55 [From Nexium] DIMOTROPE Allergy Mild Hives Uncoded 12/05/23 12:55 ORNADE DIMOTROPE Allergy Unknown Hives Uncoded 12/05/23 12:55 General Stated Complaint: Orthopedic ROBIN: 3 Exam Narrative Exam Narrative: Alert, oriented, pleasant 58-year-old gentleman, no visible signs of head trauma, pupils equal round reactive to light and accommodation, extraocular muscles intact, paraspinal neck tenderness without visible evidence of trauma, no hemotympanum, left thoracic ecchymosis to the mid axillary region, lower rib region with a one quarter sized bruise in the posterior CVA region with some mild tenderness, lungs clear to auscultation, cardiac rate rhythm regular, some mild left upper quadrant tenderness on exam without crepitus, no pallor, left hip tenderness on exam without obvious deformity, neurovascularly intact all 4 extremities, GCS 15, ambulatory with antalgic gait Course Vital Signs Vital signs: Vital Signs Temperature 37.4 C 02/14/24 11:34 Pulse 83 02/14/24 11:34 Respiratory Rate 16 02/14/24 11:34 Blood Pressure 142/66 H 02/14/24 11:34 Pulse Oximetry 99 02/14/24 11:34 Temperature 37.4 C 02/14/24 11:34 Temperature Source Tympanic 02/14/24 11:34 Pulse 74 02/14/24 15:28 Respiratory Rate 16 02/14/24 15:28 Respiratory Effort Normal, Non-Labored 02/14/24 12:23 Blood Pressure 134/74 02/14/24 12:09 Blood Pressure Mean 94 02/14/24 12:09 Blood Pressure Position Sitting 02/14/24 11:34 Pulse Oximetry 99 02/14/24 15:28 Oxygen Delivery Method Room Air 02/14/24 11:34 Oxygen Flow Rate 0 02/14/24 11:34 Pain Level 4 02/14/24 15:28 Lab/Test Results Lab/Test Results: Laboratory Tests Range/Units 02/14/24 02/14/24 12:18 13:54 WBC (4.4-10.8) 10^3/uL 13.87 H RBC (4.36-5.78) 10^6/uL 4.58 Hgb (13.5-17.5) g/dL 14.1 Hct (40.0-50.0) % 42.0 MCV (80-95) fL 92 MCH (27.0-33.0) pg 30.8 MCHC (32.0-36.0) % 33.6 RDW (11.8-14.1) % 13.3 Plt Count (130-400) 10^3/uL 194 MPV (8.0-11.0) fL 10.6 Immature Gran % % 0.3 Neutrophils % % 66.4 Lymphocytes % % 23.7 Monocytes % % 7.6 Eosinophils % % 1.6 Basophils % % 0.4 Nucleated RBC % (0.0-0.3) % 0.0 Absolute Neutrophils (1.2-6.7) 10^3/uL 9.21 H Absolute Lymphocytes (1.2-3.4) 10^3/uL 3.29 Absolute Monocytes (0.1-0.8) 10^3/uL 1.05 H Absolute Eosinophils (0.0-0.7) 10^3/uL 0.22 Absolute Basophils (0.0-0.2) 10^3/uL 0.06 Sodium (136-145) mmol/L 136 Potassium (3.5-5.1) mmol/L 4.4 Chloride (98-107) mmol/L 100 Carbon Dioxide (21.0-32.0) mmol/L 27.5 Anion Gap (3-11) mmol/L 8.5 BUN (7-18) mg/dL 18 Creatinine (0.70-1.30) mg/dL 1.3 Est GFR (CKD-EPI 2020) (mL/min/1.73m2) 64.47 Glucose (74-106) mg/dL 107 H Calcium (8.5-10.1) mg/dL 8.9 Total Bilirubin (0.2-1.0) mg/dL 1.4 H AST (15-37) U/L 18 ALT (16-63) U/L 30 Alkaline Phosphatase (46-116) U/L 131 H Total Protein (6.4-8.2) g/dL 7.2 Albumin (3.4-5.0) g/dL 4.1 Lipase (16-77) U/L 27 Urine Color (Yellow) Yellow Urine Clarity (Clear) Clear Urine pH (5-8) 7.0 Ur Specific [place] (1.005-1.025) 1.010 Urine Protein (Neg-Trace) mg/dL Negative Urine Ketones (Negative) mg/dL Negative Urine Blood (Negative) Negative Urine Nitrite (Negative) Negative Urine Bilirubin (Negative) Negative Urine Urobilinogen (Up to 0.2) mg/dL 0.2 Ur Leukocyte Esterase (Negative) Negative Urine Glucose (Negative) mg/dL Negative Medical Decision Making Alert and oriented 58-year-old male presenting post fall which was mechanical in nature. Mild leukocytosis, patient states this is currently being monitored by his transplant team and unchanged. He is feeling improvement after some IV Tylenol and fluids, likely has a concussion from hitting his head continued with supportive care recommended, CT of head and per radiology interpretation my review does not show evidence of acute abnormality. CT chest abdomen and pelvis was ordered without acute abnormality per radiology interpretation and my review report. Patient does have some pain with ambulation and is requesting a walker and ambulates safely with this device. He will follow-up on his diagnostic labs with his primary care physician and transplant team but otherwise remains hemodynamically stable, urinalysis without blood. He is given low threshold to return should he have new or worsening complaints, small amount of muscle relaxant was supplied the patient will continue with Tylenol as needed. 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 (Acute) Gastroparesis (Acute) Migraine (Chronic) Vaccine contraindicated (Chronic) NO LIVE VACCINES Left hemiparesis (Acute) 2019 Depression (Chronic) Vertigo (Acute) Acquired deformity of foot (Acute) Asthma, exercise induced (Acute) Vitamin D deficiency, unspecified (Acute) RLS (restless legs syndrome) (Acute) Dyspnea (Acute) Erectile dysfunction (Acute) Bilateral radicular pain (Acute) lower legs Acquired inequality of length of feet (Acute) Scoliosis (Acute) Pancreas transplanted (Acute) Hypothyroidism (acquired) (Acute) Hypertension (Chronic) Neuropathy (Acute) Nail dystrophy (Acute) Sleep apnea (Acute) Interrupted breathing (Acute) Medical History Abnormal movements Acute febrile illness Acute otitis externa of right ear Acute right otitis media Asthma Atopic dermatitis Carpal tunnel syndrome of right wrist (10/12/14) Chest pressure work uped but everthing negative Coxsackie virus infection Difficulty swallowing Dyspnea on exertion Femoroacetabular impingement of left hip Hernia History of diabetes mellitus, type I no longer after transplant Hyponatremia Ingrown toenail Knot in throat Lumbar back pain Lumbar back pain with radiculopathy affecting left lower extremity Near syncope Normal colonoscopy Oropharyngeal dysphagia Right shoulder pain Strain of flexor muscle of left hip Subcutaneous mass of left lower extremity Tardive dyskinesia (10/12/14) Tendinitis of left hip flexor Trigger finger, right middle finger 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) Vocal cord dysfunction Weakness of left lower extremity Surgical History History of appendectomy History of arthroscopic knee surgery Left History of carpal tunnel release Right History of colonoscopy 2014-pitting of colonic mucosa History of colonoscopy (~03/2022) History of esophagogastroduodenoscopy (EGD) History of pancreas transplant 08/27/13 History of shoulder surgery R shoulder Trigger finger, right middle finger S/P release on 02/08/2020 Family History Father COPD (chronic obstructive pulmonary disease) Mother Hypertension Status post heart valve replacement AGE 7 Migraine Parkinsons Brother Enlarged prostate no cancer Other Heart disease Social History Smoking/Tobacco Use Status: Never Smoking risk assessment performed?: Yes Alcohol Intake: never Drug use: Never Substance use type: does not use Household members: family Housing: house Pets and animals: Yes Pets and animals: cat(s) and dog(s) Current gender identity: male What is your relationship status?: Panel score (0-1 are the most socially isolated patients): 1 Seatbelt use: always Do you feel safe at home: Yes Do you feel safe in your relationship?: Yes
== END 2024-02-14 15:30 | disposition home or self-care (01) ==
PROVIDERS: Emergency Provider Physician Assistant; PCP Family Medicine
DX: S06.0XAA Concussion with loss of consciousness status unknown, initial encounter (principal); S70.02XA Contusion of left hip, initial encounter; M25.552 Pain in left hip; R51.9 Headache, unspecified; W01.190A Fall on same level from slipping, tripping and stumbling with subsequent striking against furniture, initial encounter; Z94.83 Pancreas transplant status
CPT/HCPCS: 36415; 74177; 80053; 83690; 96361; 96365; 99285; 70450; 71260; 72125; 73502; 81003; 85025; 99283; J0131; J3490

== ENCOUNTER 2024-07-15 11:09 | Outpatient (REF) | payer BC, SELFPAY ==
[2024-07-15 15:10] LABS: Abs Immature Grans 0.02 10^3/uL (0.0-0.06); Absolute Basophil Count 0.07 10^3/uL (0.0-0.2); Absolute Eosinophil Count 0.22 10^3/uL (0.0-0.7); Absolute Lymphocyte Count 2.95 10^3/uL (1.2-3.4); Absolute Monocyte Count 0.61 10^3/uL (0.1-0.8); Absolute Neutrophil Count 5.07 10^3/uL (1.2-6.7); Basophils % 0.8 %; Eosinophils % 2.5 %; HCT 48.4 % (40.0-50.0); HGB 16.2 g/dL (13.5-17.5); Immature Grans % 0.2 %; MCH 29.8 pg (27.0-33.0); MCHC 33.5 % (32.0-36.0); MCV 89 fL (80-95); MPV 10.7 fL (8.0-11.0); Monocytes % 6.8 %; Neutrophils % 56.7 %; Platelet Count 213 10^3/uL (130-400); RBC 5.43 10^6/uL (4.36-5.78); RDW 13.1 % (11.8-14.1); RDW-SD 42.7 fL; WBC 8.94 10^3/uL (4.4-10.8)
[2024-07-15 15:28] LABS: Hemoglobin A1C 5.4 % (<5.7)
[2024-07-15 15:53] LABS: ALT 45 U/L (16-63); AST 27 U/L (15-37); Albumin 4.6 g/dL (3.4-5.0); Alkaline Phosphatase 172 U/L (46-116); BUN 13 mg/dL (7-18); Bilirubin, Total 1.51 mg/dL (0.2-1.0); CREATININE 1.2 mg/dL (0.70-1.30); Calcium 9.8 mg/dL (8.5-10.1); Chloride 103 mmol/L (98-107); Estimated GFR 70.98 (mL/min/1.73m2); Glucose 95 mg/dL (74-106); Potassium 4.3 mmol/L (3.5-5.1); Sodium 142 mmol/L (136-145); T4 10.5 ug/dL (4.7-13.3); TSH 0.98 uIU/mL (0.36-3.74); Total Protein 8.1 g/dL (6.4-8.2); Vitamin B12 1636 pg/mL (193-986)
[2024-07-15 15:55] LABS: Folate > 20.0 ng/mL (8.6-20.0)
[2024-07-15 16:08] LABS: PHOSPHORUS 3.3 mg/dL (2.6-4.7)
[2024-07-16 12:26] LABS: Tacrolimus 14.9 ng/mL (See Note)
== END 2024-07-15 11:10 | disposition home or self-care (01) ==
LOC: NCHCN 11:09
PROVIDERS: Family Medicine; PCP Family Medicine
DX: E83.39 Other disorders of phosphorus metabolism (principal); E03.9 Hypothyroidism, unspecified; F32.9 Major depressive disorder, single episode, unspecified; Z00.00 Encounter for general adult medical examination without abnormal findings; Z94.83 Pancreas transplant status
CPT/HCPCS: 80053; 82306; 80197; 82607; 82746; 83036; 83735; 84100; 84436; 84443; 85025

== ENCOUNTER 2024-09-28 11:40 | Emergency (ER) | payer OTHER, SELFPAY ==
[2024-09-28 11:52] VITALS: BP 147/75; PULSE 80; RESP 16; TEMP 36.6; O2SAT 96
--- NOTE | 2024-09-28 12:00 | W.ED.GENAD ---
Discharge Plan Disposition Patient Disposition: Home Discharge Details Clinical Impression: Acute hip pain Primary Care Provider: Anna Mullen V ED Provider: Kesha Rubio Home Meds and New Rx's Prescriptions: No Action meclizine 25 mg tablet 25 mg PO TID PRN nitroglycerin [Nitrostat] 0.4 mg tablet, sublingual 0.4 mg SL Q5M PRN verapamil 120 mg tablet extended release 180 mg PO DAILY valacyclovir 1 gram tablet 2,000 mg PO PRN PRN Patient Comments: not taking but have available if needed. polyethylene glycol 3350 [Miralax] 17 gram/dose powder 17 gm PO PRN PRN omega-3 fatty acids [Fish Oil Concentrate] 1,000 mg capsule 1,000 mg PO DAILY hydrochlorothiazide 25 mg tablet 25 mg PO BID isosorbide mononitrate 30 mg tablet extended release 24 hr 30 mg PO DAILY multivitamin [Daily Multi-Vitamin] 1 EACH tablet 1 ea PO DAILY levothyroxine 175 MCG tablet 137 mcg PO DAILY magnesium gluconate 27 MG tablet 27 mg PO DAILY venlafaxine 150 MG tablet extended release 24hr 225 mg PO DAILY mycophenolate mofetil [CellCept] 250 mg capsule 250 mg PO 2 CAPS BID albuterol sulfate [ProAir HFA] 90 mcg/actuation HFA aerosol inhaler 2 puff inhalation 6XD fexofenadine [Allergy Relief (fexofenadine)] 180 mg tablet 180 mg PO DAILY cholecalciferol (vitamin D3) 125 mcg (5,000 unit) capsule 125 mcg PO DAILY Rx Instructions: reports he is taking 10,000 IU [id number]. 09/15/22 tacrolimus [Prograf] 1 mg capsule 1 mg PO DAILY pantoprazole 40 MG tablet,delayed release (DR/EC) 40 mg PO BID gabapentin 300 mg capsule 600 mg PO DIRECTED Rx Instructions: Per pt. takes 600 mg am, 1200 mg suppertime, 600 mg HS ondansetron 4 MG tablet,disintegrating 4 mg PO Q6H PRN PRN (Reason: Nausea / Vomiting) Qty: 20 0RF acetaminophen [Tylenol Extra Strength] 500 mg Tablet 1,000 mg PO Q6H PRN tacrolimus [Prograf] 0.5 mg capsule 0.5 mg PO DAILY hydralazine 50 mg tablet 50 mg PO DAILY carvedilol 12.5 mg tablet 3.125 mg PO BID Patient Comments: TAKE ONE TABLET BY MOUTH TWICE A DAY bupropion HCl 300 mg tablet extended release 24 hr 300 mg PO DAILY Patient Comments: TAKE ONE TABLET BY MOUTH EVERY MORNING cyclobenzaprine 5 mg tablet 5 mg PO TID PRNQty: 10 0RF clopidogrel [Plavix] 75 mg Tablet 75 mg PO HS atorvastatin [Lipitor] 20 mg tablet 10 mg PO HS losartan 100 mg tablet 1 tab PO DAILY Discharge Instructions Additional Instructions: Please call your primary care provider's office first thing in the morning to schedule follow-up appointment for reassessment to make sure everything is feeling better. Your x-ray was reassuring, there is no sign of fracture in your hip or pelvis/tailbone. Your head CT was also reassuring, there is no sign of any acute injury or bleed. You may continue to use Tylenol as needed. Ice and muscle rubs may also be helpful. Lidocaine patches can be used and may provide some comfort; keep in mind that you cannot put heat or ice on top of the lidocaine patch. Return to emergency care if you develop new severe headaches, vision changes, numbness in your underwear area, change in bowel or bladder function such as incontinence or inability to have a bowel movement/urinate, or if you are very worried and need to be rechecked again immediately. Referrals: Anna Mullen MD [Primary Care Provider] - [facility] General Date/Time Provider Initiated Documentation: 09/28/24 12:00. [facility] Narrative: Richard is a 59year old male who presents to the emergency department today for evaluation of left hip now radiates around to his buttock/tailbone. He reports that yesterday he was going to sit down in his rolling office chair when the chair rolled out from under him, causing him to land on his left hip. He hit his head on the chair as well. admits to a headache yesterday and some mild blurred vision today. Hip pain is elicited with standing or movement, it is uncomfortable with sitting as well. Denies current headache, nausea/vomiting, weakness, neck pain, back pain, saddle anesthesia, change in bowel or bladder function. 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 He is anticoagulated with Plavix. Past medical history is significant for pancreas transplant for T1DM, HTN, hypothyroidism, immunocompromise. Physical exam remarkable for faint ecchymosis to the left thigh. No obvious deformity. Cranial nerves II through XII intact as tested. PERRL, EOMs intact. No raccoon eyes or Sahu sign. No C-spine, T-spine or L-spine tenderness/step-off/deformity with palpation. Full ROM of neck. D/dx includes but is not limited to: hip/coccyx/pelvic fracture, contusion, intracranial hemorrhage, mild concussion. No red flags concerning for cauda equina or other neurovascular compromise safely with serious spinal injury. No red flags concerning for c-spine injury; no imaging indicated based on [place] c-spine criteria. I independently interpreted the following tests: Left hip and pelvis x-rays, no obvious abnormality noted. This was confirmed by radiologist. History and presentation c/w contusion and possible mild concussion d/t minor head trauma. Reviewed discharge instructions with patient, including symptomatic management and red flags indicating need for return to emergency care Related Data Home Medications ?Medication ?Instructions ?Recorded ?Confirmed levothyroxine 175 mcg tablet 137 mcg PO DAILY 08/21/14 09/28/24 multivitamin (Daily Multi-Vitamin 1 ea PO DAILY 08/21/14 09/28/24 tablet) magnesium gluconate 27 mg 27 mg PO DAILY 10/12/14 09/28/24 magnesium (500 mg) tablet pantoprazole 40 mg tablet,delayed 40 mg PO BID 05/15/16 09/28/24 release venlafaxine 150 mg tablet,extended 225 mg PO DAILY 07/22/17 09/28/24 release 24 hr ondansetron 4 mg disintegrating 4 mg PO Q6H PRN PRN Nausea / 10/12/17 09/28/24 tablet Vomiting ##20 omega-3 fatty acids 1,000 mg 1,000 mg PO DAILY 10/18/18 09/28/24 capsule (Fish Oil Concentrate) polyethylene glycol 3350 17 17 gm PO PRN PRN 10/18/18 09/28/24 gram/dose oral powder (Miralax) valacyclovir 1 gram tablet 2,000 mg PO PRN PRN 10/18/18 09/28/24 meclizine 25 mg tablet 25 mg PO TID PRN 03/29/19 09/28/24 mycophenolate mofetil 250 mg 250 mg PO 2 CAPS BID 03/29/19 09/28/24 capsule (CellCept) nitroglycerin 0.4 mg sublingual 0.4 mg sublingual Q5M PRN 03/29/19 09/28/24 tablet (Nitrostat) clopidogrel 75 mg tablet (Plavix) 75 mg PO HS 08/08/19 09/28/24 atorvastatin 20 mg tablet (Lipitor) 10 mg PO HS 01/30/20 09/28/24 acetaminophen 500 mg tablet 1,000 mg PO Q6H PRN 02/08/20 09/28/24 (Tylenol Extra Strength) gabapentin 300 mg capsule 600 mg PO DIRECTED 05/15/20 09/28/24 albuterol sulfate 90 mcg/actuation 2 puff inhalation 6XD 04/25/21 09/28/24 aerosol inhaler (ProAir HFA) losartan 100 mg tablet 1 tab PO DAILY 03/05/22 09/28/24 fexofenadine 180 mg tablet 180 mg PO DAILY 03/27/22 09/28/24 (Allergy Relief (fexofenadine)) cholecalciferol (vitamin D3) 125 125 mcg PO DAILY 09/15/22 09/28/24 mcg (5,000 unit) capsule hydrochlorothiazide 25 mg tablet 25 mg PO BID 09/15/22 09/28/24 tacrolimus 1 mg capsule, 1 mg PO DAILY 09/15/22 09/28/24 immediate-release (Prograf) verapamil 120 mg tablet,extended 180 mg PO DAILY 09/15/22 09/28/24 release isosorbide mononitrate 30 mg 30 mg PO DAILY 12/24/22 09/28/24 tablet,extended release 24 hr bupropion HCl 300 mg 24 hr tablet, 300 mg PO DAILY 02/14/24 09/28/24 extended release carvedilol 12.5 mg tablet 3.125 mg PO BID 02/14/24 09/28/24 cyclobenzaprine 5 mg tablet 5 mg PO TID PRN #10 tabs 02/14/24 09/28/24 hydralazine 50 mg tablet 50 mg PO DAILY 02/14/24 09/28/24 tacrolimus 0.5 mg capsule, 0.5 mg PO DAILY 02/14/24 09/28/24 immediate-release (Prograf) Previous Rx's ?Medication ?Instructions ?Recorded ondansetron 4 mg disintegrating 4 mg PO Q6H PRN PRN Nausea / 10/12/17 tablet Vomiting ##20 cyclobenzaprine 5 mg tablet 5 mg PO TID PRN #10 tabs 02/14/24 Allergies Allergy/AdvReac Type Severity Reaction Status Date / Time metoclopramide HCl (From Allergy Intermediate TARDIIVE Unverified 09/28/24 11:57 Reglan) DYSKINESIA oxycodone HCl (From Percocet) Allergy Intermediate Other (See Unverified 09/28/24 11:57 Comment) simvastatin (From Zocor) Allergy Intermediate MYOCLONUS Unverified 09/28/24 11:57 esomeprazole magnesium (From AdvReac Diarrhea Unverified 09/28/24 11:57 Nexium) DIMOTROPE Allergy Mild Hives Uncoded 09/28/24 11:57 ORNADE DIMOTROPE Allergy Unknown Hives Uncoded 09/28/24 11:57 General Stated Complaint: Orthopedic ROBIN: 4 Review of Systems Narrative: See HPI Exam Const General: cooperative, healthy appearing, comfortable, no acute distress and well developed Nutritional Appearance: average body habitus and well nourished Orientation: alert and oriented x3 Back/Spine/Pelvis Thoracic/Lumbar Spine: thoracic and lumbar spine normal to inspection Sacrum: no swelling and tenderness Coccyx: no swelling and tenderness Skin General skin exam: no rashes or lesions noted Extrem Left lower extremity: hip/thigh (faint ecchymosis to proximal femus) Details: no tenderness, no swelling, no lacerations, no crepitus, no foreign bodies, no deformity and no unusual warmth Course Vital Signs Vital signs: Vital Signs Temperature 36.6 C 09/28/24 11:52 Pulse 80 09/28/24 11:52 Respiratory Rate 16 09/28/24 11:52 Blood Pressure 147/75 H 09/28/24 11:52 Pulse Oximetry 96 09/28/24 11:52 Temperature 36.6 C 09/28/24 11:52 Temperature Source Oral 09/28/24 11:52 Pulse 80 09/28/24 11:52 Respiratory Rate 16 09/28/24 11:52 Blood Pressure 147/75 H 09/28/24 11:52 Blood Pressure Position Sitting 09/28/24 11:52 Pulse Oximetry 96 09/28/24 11:52 Pain Level 8 09/28/24 11:52 Medical Decision Making Imaging Data Radiologic Study: Radiologist's impression: Exam(s) CT HEAD WO EXAM: CT HEAD WO CLINICAL HISTORY: head injury, on plavix. TECHNIQUE: Imaging Protocol: Axial computed tomography images with coronal and sagittal reformatted images were created and reviewed COMPARISON: CT CT HEAD CERVICAL SPINE WO from 02/14/2024 FINDINGS: There are no skull fractures. There is no fluid in the visualized paranasal sinuses. There is no evidence of intracranial hemorrhage, mass effect, or shift of midline structures. There are no extra-axial fluid collections. The ventricles are not enlarged or shifted and there is no blood within the ventricular system nor within the basal cisterns. IMPRESSION: No acute intracranial findings on this noninfused CT scan of the brain. Radiologic Study #2: Radiologist's impression: Exam(s) XR HIP LT COMPLETE AP PELVIS EXAM: XR HIP LT COMPLETE AP PELVIS CLINICAL HISTORY: fall, L hip and tailbone pain. TECHNIQUE: 2D digital imaging was performed of the left hip. Two views were obtained. AP pelvis and lateral left hip views were obtained. COMPARISON: CR,XR XR HIP LT COMPLETE AP PELVIS from 02/14/2024 FINDINGS: BONES: No acute fracture is present. No bony destructive lesion is seen. JOINTS: No dislocation present. There are degenerative changes seen in the lower lumbar spine. The hip joints are well maintained. The symphysis pubis and sacroiliac joints are intact. SOFT TISSUE: Normal. IMPRESSION: No acute fracture or dislocation. Radiologic Study #3: Radiologist's impression: Exam(s) XR SACRUM COCCYX EXAM: XR SACRUM COCCYX CLINICAL HISTORY: R hip/tailbone pain. TECHNIQUE: 2D digital imaging was performed. Three images were obtained. COMPARISON: No exams were available for comparison FINDINGS: BONES: No acute fracture is present. No bony destructive lesion is seen. JOINTS: No dislocation present. SOFT TISSUE: Normal. IMPRESSION: No acute fracture or subluxation. 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 (Acute) Gastroparesis (Acute) Migraine (Chronic) Vaccine contraindicated (Chronic) NO LIVE VACCINES Left hemiparesis (Acute) 2019 Depression (Chronic) Vertigo (Acute) Acquired deformity of foot (Acute) Asthma, exercise induced (Acute) Vitamin D deficiency, unspecified (Acute) RLS (restless legs syndrome) (Acute) Dyspnea (Acute) Erectile dysfunction (Acute) Bilateral radicular pain (Acute) lower legs Acquired inequality of length of feet (Acute) Scoliosis (Acute) Pancreas transplanted (Acute) Hypothyroidism (acquired) (Acute) Hypertension (Chronic) Neuropathy (Acute) Nail dystrophy (Acute) Sleep apnea (Acute) Interrupted breathing (Acute) Medical History Abnormal movements Acute febrile illness Acute otitis externa of right ear Acute right otitis media Asthma Atopic dermatitis Carpal tunnel syndrome of right wrist (10/12/14) Chest pressure work uped but everthing negative Coxsackie virus infection Difficulty swallowing Dyspnea on exertion Femoroacetabular impingement of left hip Hernia History of diabetes mellitus, type I no longer after transplant Hyponatremia Ingrown toenail Knot in throat Lumbar back pain Lumbar back pain with radiculopathy affecting left lower extremity Near syncope Normal colonoscopy Oropharyngeal dysphagia Right shoulder pain Strain of flexor muscle of left hip Subcutaneous mass of left lower extremity Tardive dyskinesia (10/12/14) Tendinitis of left hip flexor Trigger finger, right middle finger 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) Vocal cord dysfunction Weakness of left lower extremity Surgical History History of appendectomy History of arthroscopic knee surgery Left History of carpal tunnel release Right History of colonoscopy 2014-pitting of colonic mucosa History of colonoscopy (~03/2022) History of esophagogastroduodenoscopy (EGD) History of pancreas transplant 08/27/13 History of shoulder surgery R shoulder Trigger finger, right middle finger S/P release on 02/08/2020 Family History Father COPD (chronic obstructive pulmonary disease) Mother Hypertension Status post heart valve replacement AGE 7 Migraine Parkinsons Brother Enlarged prostate no cancer Other Heart disease Social History Smoking/Tobacco Use Status: Never Smoking risk assessment performed?: Yes Alcohol Intake: never Drug use: Never Substance use type: does not use Household members: family Housing: house Pets and animals: Yes Pets and animals: cat(s) and dog(s) Current gender identity: male What is your relationship status?: Panel score (0-1 are the most socially isolated patients): 1 Seatbelt use: always Do you feel safe at home: Yes Do you feel safe in your relationship?: Yes
--- NOTE | 2024-09-28 12:15 | DI.RAD_ITS ---
Exam(s) XR HIP LT COMPLETE AP PELVIS EXAM: XR HIP LT COMPLETE AP PELVIS CLINICAL HISTORY: fall, L hip and tailbone pain. TECHNIQUE: 2D digital imaging was performed of the left hip. Two views were obtained. AP pelvis an d lateral left hip views were obtained. COMPARISON: CR,XR XR HIP LT COMPLETE AP PELVIS from 02/14/2024 FINDINGS: BONES: No acute fracture is present. No bony destructive lesion is seen. JOINTS: No dislocation present. There are degenerative changes seen in the lower lumbar spine. The h ip joints are well maintained. The symphysis pubis and sacroiliac joints are intact. SOFT TISSUE: Normal. IMPRESSION: No acute fracture or dislocation. DATA REPOSITORY: RADIATION DOSE DELIVERED:
--- NOTE | 2024-09-28 12:15 | DI.RAD_ITS ---
Exam(s) XR SACRUM COCCYX EXAM: XR SACRUM COCCYX CLINICAL HISTORY: R hip/tailbone pain. TECHNIQUE: 2D digital imaging was performed. Three images were obtained. COMPARISON: No exams were available for comparison FINDINGS: BONES: No acute fracture is present. No bony destructive lesion is seen. JOINTS: No dislocation present. SOFT TISSUE: Normal. IMPRESSION: No acute fracture or subluxation. DATA REPOSITORY: RADIATION DOSE DELIVERED:
--- NOTE | 2024-09-28 12:15 | DI.CT_ITS ---
Exam(s) CT HEAD WO EXAM: CT HEAD WO CLINICAL HISTORY: head injury, on plavix. TECHNIQUE: Imaging Protocol: Axial computed tomography images with coronal and sagittal reformatted images were created and reviewed COMPARISON: CT CT HEAD CERVICAL SPINE WO from 02/14/2024 FINDINGS: There are no skull fractures. There is no fluid in the visualized paranasal sinuses. There is no evidence of intracranial hemorrhage, mass effect, or shift of midline structures. There are no extra-axial fluid collections. The ventricles are not enlarged or shifted and there is no blo od within the ventricular system nor within the basal cisterns. IMPRESSION: No acute intracranial findings on this noninfused CT scan of the brain. Report called by myself to ER nurse 09/28/2024 2:22 p.m. RADIATION DOSE DELIVERED: 932.42mGy.cm Total DLP DATA REPOSITORY: All CT scans at this facility are submitted to the National Radiology Data Registry (NRDR) Dose Index Registry (DIR) with the [employer] ([employer]). RADIATION OPTIMIZATION: All CT scans at this facility use at least one of these dose optimization te chniques: automated exposure control; mA and/or kV adjustment per patient size (includes targeted exa ms where dose is matched to clinical indication); or iterative reconstruction.
[2024-09-28 14:38] VITALS: BP 147/75; PULSE 80; RESP 16; TEMP 36.6; O2SAT 96
== END 2024-09-28 14:38 | disposition home or self-care (01) ==
PROVIDERS: Emergency Provider Nurse Practitioner Family; PCP Family Medicine
DX: M25.552 Pain in left hip (principal)
CPT/HCPCS: 99284; 70450; 72220; 73502; 99283

== ENCOUNTER 2024-11-28 16:51 | Emergency (ER) | payer BC, SELFPAY ==
[2024-11-28] VITALS (31 sets, daily range): BP systolic 162–223; BP diastolic 88–133; PULSE 81–108; RESP 12–24; TEMP 36.6–36.8; O2SAT 96–99
--- NOTE | 2024-11-28 17:00 | RT.EKG_ITS ---
APPROVED REPORT Exam: Resting ECG Reason for Exam: SOB Patient Location: E HR:92 bpm ECG Measurements Heart Rate 92 AXIS DE 156 P 35 QRSd 93 QRS 64 QT 355 T 47 QTc 440 Conclusion Sinus rhythm...normal P axis, V-rate 60- 99
--- NOTE | 2024-11-28 17:01 | W.ED.GENAD ---
Discharge Plan Disposition Patient Disposition: Home Condition: Stable Discharge Details Clinical Impression: Upper respiratory infection Primary Care Provider: Anna Mullen V ED Provider: Ariel Mays Home Meds and New Rx's Prescriptions: New amoxicillin-pot clavulanate 875-125 mg tablet 1 tab PO BID 5 Days Qty: 9 0RF azithromycin 250 mg tablet 250 mg PO DAILY 4 Days Qty: 4 0RF Rx Instructions: start on day 2 of therapy Continued meclizine 25 mg tablet 25 mg PO TID PRN nitroglycerin [Nitrostat] 0.4 mg tablet, sublingual 0.4 mg SL Q5M PRN verapamil 120 mg tablet extended release 180 mg PO DAILY valacyclovir 1 gram tablet 2,000 mg PO PRN PRN Patient Comments: not taking but have available if needed. polyethylene glycol 3350 [Miralax] 17 gram/dose powder 17 gm PO PRN PRN omega-3 fatty acids [Fish Oil Concentrate] 1,000 mg capsule 1,000 mg PO DAILY hydrochlorothiazide 25 mg tablet 25 mg PO BID isosorbide mononitrate 30 mg tablet extended release 24 hr 30 mg PO DAILY multivitamin [Daily Multi-Vitamin] 1 EACH tablet 1 ea PO DAILY levothyroxine 175 MCG tablet 137 mcg PO DAILY magnesium gluconate 27 MG tablet 27 mg PO DAILY venlafaxine 150 MG tablet extended release 24hr 225 mg PO DAILY mycophenolate mofetil [CellCept] 250 mg capsule 250 mg PO 2 CAPS BID albuterol sulfate [ProAir HFA] 90 mcg/actuation HFA aerosol inhaler 2 puff inhalation 6XD fexofenadine [Allergy Relief (fexofenadine)] 180 mg tablet 180 mg PO DAILY cholecalciferol (vitamin D3) 125 mcg (5,000 unit) capsule 125 mcg PO DAILY Rx Instructions: reports he is taking 10,000 IU [id number]. 09/15/22 tacrolimus [Prograf] 1 mg capsule 1 mg PO DAILY atorvastatin [Lipitor] 20 mg tablet 20 mg PO HS baclofen 10 mg tablet 10 mg PO QHS budesonide 32 mcg/actuation spray,non-aerosol 2 spray intranasal DAILY Rx Instructions: administer into each nostril pantoprazole 40 MG tablet,delayed release (DR/EC) 40 mg PO BID gabapentin 300 mg capsule 600 mg PO DIRECTED Rx Instructions: Per pt. takes 600 mg am, 1200 mg suppertime, 600 mg HS ondansetron 4 MG tablet,disintegrating 4 mg PO Q6H PRN PRN (Reason: Nausea / Vomiting) Qty: 20 0RF acetaminophen [Tylenol Extra Strength] 500 mg Tablet 1,000 mg PO Q6H PRN tacrolimus [Prograf] 0.5 mg capsule 0.5 mg PO DAILY hydralazine 50 mg tablet 50 mg PO DAILY carvedilol 12.5 mg tablet 3.125 mg PO BID Patient Comments: TAKE ONE TABLET BY MOUTH TWICE A DAY bupropion HCl 300 mg tablet extended release 24 hr 300 mg PO DAILY Patient Comments: TAKE ONE TABLET BY MOUTH EVERY MORNING cyclobenzaprine 5 mg tablet 5 mg PO TID PRNQty: 10 0RF clopidogrel [Plavix] 75 mg Tablet 75 mg PO HS losartan 100 mg tablet 1 tab PO DAILY Discharge Instructions Instructions: Azithromycin (Systemic), Amoxicillin and Clavulanate, Upper Respiratory Infection ED Additional Instructions: You were seen in the emergency department for your upper respiratory infection, you state that you have having postnasal drip and a sore throat and cough, your COVID and flu is negative, your chest x-ray shows no pneumonia, he had mildly elevated white blood cells but no other acute abnormalities on your laboratory workup, your cardiac enzymes are normal, blood clot in your lungs was ruled out. Due to your post transplant status I am prescribing you 2 different antibiotics which we started tonight, please order picker/assembler the remainder at your pharmacy and [place] tomorrow. Please take regular dose of Tylenol and ibuprofen as needed. Please return for any acute emergent concerns like chest pain, shortness of breath, respiratory distress or other emergent concerns. Referrals: Anna Mullen MD [Primary Care Provider] - Discharge Data Discharge Date/Time-TO BE ENTERED AT DEPARTURE: 11/29/24 03:37 HPI General Date/Time Provider Initiated Documentation: 11/28/24 16:53. HPI Narrative: 59 year-old male presents to ED today by POV/ambulating with a chief complaint of shortness of breath, fevers, body aches, sore throat, minor nose bleeds with onset over the past few days. Quality described as generalized cough/cold symptoms, shortness of breath more pronounced the past few hours, no radiation to current fever, nausea/vomiting, diarrhea, chest pain, profound lethargy. Severity is described as moderate. Palliating factors include OTC cold medicines without much relief. Provoking factors include nothing specific. Patient not anticoagulated. Related Data Home Medications ?Medication ?Instructions ?Recorded ?Confirmed levothyroxine 175 mcg tablet 137 mcg PO DAILY 08/21/14 11/29/24 multivitamin (Daily Multi-Vitamin 1 ea PO DAILY 08/21/14 11/29/24 tablet) magnesium gluconate 27 mg 27 mg PO DAILY 10/12/14 11/29/24 magnesium (500 mg) tablet pantoprazole 40 mg tablet,delayed 40 mg PO BID 05/15/16 11/29/24 release venlafaxine 150 mg tablet,extended 225 mg PO DAILY 07/22/17 11/29/24 release 24 hr ondansetron 4 mg disintegrating 4 mg PO Q6H PRN PRN Nausea / 10/12/17 11/29/24 tablet Vomiting ##20 omega-3 fatty acids 1,000 mg 1,000 mg PO DAILY 10/18/18 11/29/24 capsule (Fish Oil Concentrate) polyethylene glycol 3350 17 17 gm PO PRN PRN 10/18/18 11/29/24 gram/dose oral powder (Miralax) valacyclovir 1 gram tablet 2,000 mg PO PRN PRN 10/18/18 11/29/24 meclizine 25 mg tablet 25 mg PO TID PRN 03/29/19 11/29/24 mycophenolate mofetil 250 mg 250 mg PO 2 CAPS BID 03/29/19 11/29/24 capsule (CellCept) nitroglycerin 0.4 mg sublingual 0.4 mg sublingual Q5M PRN 03/29/19 11/29/24 tablet (Nitrostat) clopidogrel 75 mg tablet (Plavix) 75 mg PO HS 08/08/19 11/29/24 acetaminophen 500 mg tablet 1,000 mg PO Q6H PRN 02/08/20 11/29/24 (Tylenol Extra Strength) gabapentin 300 mg capsule 600 mg PO DIRECTED 05/15/20 11/29/24 albuterol sulfate 90 mcg/actuation 2 puff inhalation 6XD 04/25/21 11/29/24 aerosol inhaler (ProAir HFA) losartan 100 mg tablet 1 tab PO DAILY 03/05/22 11/29/24 fexofenadine 180 mg tablet 180 mg PO DAILY 03/27/22 11/29/24 (Allergy Relief (fexofenadine)) cholecalciferol (vitamin D3) 125 125 mcg PO DAILY 09/15/22 11/29/24 mcg (5,000 unit) capsule hydrochlorothiazide 25 mg tablet 25 mg PO BID 09/15/22 11/29/24 tacrolimus 1 mg capsule, 1 mg PO DAILY 09/15/22 11/29/24 immediate-release (Prograf) verapamil 120 mg tablet,extended 180 mg PO DAILY 09/15/22 11/29/24 release isosorbide mononitrate 30 mg 30 mg PO DAILY 12/24/22 11/29/24 tablet,extended release 24 hr bupropion HCl 300 mg 24 hr tablet, 300 mg PO DAILY 02/14/24 11/29/24 extended release carvedilol 12.5 mg tablet 3.125 mg PO BID 02/14/24 11/29/24 cyclobenzaprine 5 mg tablet 5 mg PO TID PRN #10 tabs 02/14/24 11/29/24 hydralazine 50 mg tablet 50 mg PO DAILY 02/14/24 11/29/24 tacrolimus 0.5 mg capsule, 0.5 mg PO DAILY 02/14/24 11/29/24 immediate-release (Prograf) atorvastatin 20 mg tablet (Lipitor) 20 mg PO HS 11/22/24 11/29/24 baclofen 10 mg tablet 10 mg PO QHS 11/22/24 11/29/24 budesonide 32 mcg/actuation nasal 2 spray intranasal DAILY 11/22/24 11/29/24 spray amoxicillin 875 mg-potassium 1 tab PO BID 5 days #9 tabs 11/28/24 11/29/24 clavulanate 125 mg tablet azithromycin 250 mg tablet 250 mg PO DAILY 4 days #4 tabs 11/28/24 11/29/24 Previous Rx's ?Medication ?Instructions ?Recorded ondansetron 4 mg disintegrating 4 mg PO Q6H PRN PRN Nausea / 10/12/17 tablet Vomiting ##20 cyclobenzaprine 5 mg tablet 5 mg PO TID PRN #10 tabs 02/14/24 amoxicillin 875 mg-potassium 1 tab PO BID 5 days #9 tabs 11/28/24 clavulanate 125 mg tablet azithromycin 250 mg tablet 250 mg PO DAILY 4 days #4 tabs 11/28/24 Allergies Allergy/AdvReac Type Severity Reaction Status Date / Time metoclopramide HCl (From Allergy Intermediate TARDIIVE Unverified 11/29/24 01:37 Reglan) DYSKINESIA oxycodone HCl (From Percocet) Allergy Intermediate Other (See Unverified 11/29/24 01:37 Comment) simvastatin (From Zocor) Allergy Intermediate MYOCLONUS Unverified 11/29/24 01:37 esomeprazole magnesium (From AdvReac Diarrhea Unverified 11/29/24 01:37 Nexium) lisinopril AdvReac Reaction Verified 11/29/24 01:37 to Maxdose DIMOTROPE Allergy Mild Hives Uncoded 11/29/24 01:37 ORNADE DIMOTROPE Allergy Unknown Hives Uncoded 11/29/24 01:37 General Stated Complaint: SOB ROBIN: 3 Review of Systems All systems reviewed & are unremarkable except as noted in HPI and below Exam Narrative Exam Narrative: GENERAL APPEARANCE: Well-nourished, non-toxic, awake and alert, atraumatic, no acute distress. SKIN: Warm, pink, dry, intact, without rashes/lesions/ulcerations. HEAD: Normocephalic, atraumatic, normal hair distribution for gender/age. EYES: Normal conjunctiva, no exudates on lids/lashes. ENT: Nares patent, no circumoral cyanosis, no facial swelling, no posterior oropharyngeal erythema or exudate, uvula midline NECK: Supple, trachea midline, painless cervical ROM. LUNGS/CHEST: Lungs CTA bilaterally-no rhonchi/rales/wheezes diffusely , non-labored respirations, normal A/P diameter, symmetrical expansion, no chest wall deformity HEART (CV/PV): Regular rate and rhythm without murmur, no peripheral edema, no JVD. ABDOMEN: Soft, non-distended, no guarding, no tenderness. MSK: Normal ROM, no swelling/deformity to bilateral UEs or LEs, moving all extremities without weakness, no cyanosis, spine midline without tenderness, normal curvature. NEURO: Mental Status AAOx4 - alert to person, place, time, events No facial droop, no forehead involvement. Motor: No focal weakness - strength 5/5 in bilateral UEs and LEs, proximal and distal, symmetric. Sensory: sensation intact to light touch globally. Gait normal: patient ambulated without ataxia into ED room. PSYCH: euthymic, cooperative, pleasant, appropriate speech Course Vital Signs Vital signs: Vital Signs Temperature 36.6 C 11/28/24 16:54 Pulse 98 H 11/28/24 16:54 Respiratory Rate 20 11/28/24 16:54 Blood Pressure 187/100 H 11/28/24 16:54 Pulse Oximetry 97 11/28/24 16:54 Temperature 36.6 C 11/28/24 16:54 Temperature Source Oral 11/28/24 16:54 Pulse 98 H 11/28/24 16:54 Respiratory Rate 20 11/28/24 16:54 Blood Pressure 187/100 H 11/28/24 16:54 Blood Pressure Position Sitting 11/28/24 16:54 Pulse Oximetry 97 11/28/24 16:54 Oxygen Delivery Method Room Air 11/28/24 16:54 Oxygen Flow Rate 0 11/28/24 16:54 Pain Level 5 11/28/24 16:54 Medical Decision Making This dictation utilizes [id number] dictation software and may contain unedited grammatical errors. 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 Quality described as generalized cough/cold symptoms, feels like his throat is closing up, shortness of breath more pronounced the past few hours, no radiation to current fever, nausea/vomiting, diarrhea, chest pain, profound lethargy. Severity is described as moderate. Palliating factors include OTC cold medicines without much relief. Provoking factors include nothing specific. Patients' medical history: Transplant patient on tacrolimus, asthma, sleep apnea, history of CVA, hypertension. Family and social history: Lives independently, eats well, exercises regularly. Pertinent exam findings / vital signs include lungs CTA, afebrile and nontoxic, completely benign posterior oropharynx, neuro intact, benign abdomen, patient developed hypertension towards end of visit we did provide home meds but he chose to leave without improved BPs. Differential / pathologies of concern include URI, pneumonia, bronchitis, unlikely PE, not ACS. Diagnostic studies of: -CBC, CMP, D-dimer, lactate, magnesium, troponin, CRP, lipase, respiratory PCR swab, chest x-ray, EKG. -CBC shows just above normal leukocytosis, nonspecific -D-dimer negative -Lactate slightly elevated 2.2 but coupled with creatinine of 1.4 likely dehydration -Magnesium within normal limits -Troponin negative with reliable onset -CRP negative -Lipase negative -Respiratory panel swab negative -Chest x-ray shows subsegmental platelike atelectasis in left lung base -EKG shows sinus rhythm with P waves followed by narrow complex QRS with normal axis, some motion artifact, no ST elevations or depressions, no T wave abnormalities, good R wave progression, consistent with priors, normal QT QTc Interventions of: -Treating with dual antibiotics due to patient's immunosuppressed status, DuoNeb given here, gave p.o. BP meds of losartan, carvedilol, hydrochlorothiazide. ED Course/Assessment/Plan: 59-year-old immune suppressed man has a upper respiratory infection for the past few days, states his shortness of breath is significant, no evidence of hypoxic respiratory failure or toxic presentation, patient's workup is negative showing no evidence of myocarditis, PCR swab negative, D-dimer negative do not suspect PE, he has leukocytosis of 10.82 at the upper limit of normal, platelike atelectasis in the left base, I am treating him with antibiotics due to his history of pancreatic transplant and immune suppressed status, I stressed strict return criteria for any chest pain, respiratory distress, high fevers not responding to Tylenol and ibuprofen, patient was given his home BP meds for systolics around 200 but he chose to leave prior to his blood pressure coming down, his hypertensive emergency workup is negative, I do suspect he will calm down and there is an element of whitecoat hypertension to this, patient agrees with this plan. Findings not consistent with ACS, PE, pneumonia, hypoxic respiratory failure. Disposition of upper respiratory infection. Patient verbalized understanding of the plan and return to ED criteria and engaged in shared decision making. Medical Records Medical records reviewed: Yes I reviewed the patient's medical records. Imaging Data Radiologic Study: Attestation: I personally reviewed and interpreted this imaging study as follows: Imaging: X-Ray Radiologist's impression: EXAM: XR CHEST 2V PA LATERAL CLINICAL HISTORY: cough, SOB. TECHNIQUE: 2D digital imaging was performed. COMPARISON: CR,XR XR CHEST 2V PA LATERAL from 12/05/2023 FINDINGS: 2 views: Heart size is normal. The mediastinum is not widened. Right lung is clear. There is subsegmental atelectasis in the left lung base. No confluent infiltrates and there are no pleural effusions. IMPRESSION: There is subsegmental platelike atelectasis in the left lung base. Lab Data Lab results reviewed: Yes I reviewed the patient's lab results. Labs: Laboratory Tests Range/Units 11/28/24 17:24 WBC (4.4-10.8) 10^3/uL 10.82 H RBC (4.36-5.78) 10^6/uL 5.40 Hgb (13.5-17.5) g/dL 16.1 Hct (40.0-50.0) % 47.9 MCV (80-95) fL 89 MCH (27.0-33.0) pg 29.8 MCHC (32.0-36.0) % 33.6 RDW (11.8-14.1) % 13.2 Plt Count (130-400) 10^3/uL 240 MPV (8.0-11.0) fL 10.6 Immature Gran % % 0.0 Neutrophils % % 40.0 Band Neutrophils % % 1 Lymphocytes % % 48.0 Atypical Lymphs % % 8 Monocytes % % 3.0 Eosinophils % % 0.0 Basophils % % 0.0 Nucleated RBC % (0.0-0.3) % 0.0 Absolute Neutrophils (1.2-6.7) 10^3/uL 4.44 Absolute Lymphocytes (1.2-3.4) 10^3/uL 6.06 H Absolute Monocytes (0.1-0.8) 10^3/uL 0.32 Absolute Eosinophils (0.0-0.7) 10^3/uL 0.00 Absolute Basophils (0.0-0.2) 10^3/uL 0.00 RBC Morphology Normal D-Dimer (<500) ng/mlFEU 382 VBG Lactate (<or=2.0) mmol/L 2.2 H* Sodium (136-145) mmol/L 139 Potassium (3.5-5.1) mmol/L 3.9 Chloride (98-107) mmol/L 101 Carbon Dioxide (21.0-32.0) mmol/L 26.4 Anion Gap (3-11) mmol/L 11.6 H BUN (7-18) mg/dL 16 Creatinine (0.70-1.30) mg/dL 1.4 H Est GFR (CKD-EPI 2020) (mL/min/1.73m2) 58.62 Glucose (74-106) mg/dL 119 H Calcium (8.5-10.1) mg/dL 9.3 Magnesium mg/dL 1.9 Total Bilirubin (0.2-1.0) mg/dL 1.1 H AST (15-37) U/L 21 ALT (16-63) U/L 33 Alkaline Phosphatase (46-116) U/L 154 H Troponin I (<or=76) ng/L 7 C-Reactive Protein (<or=0.5) mg/dL < 0.50 Total Protein (6.4-8.2) g/dL 7.8 Albumin (3.4-5.0) g/dL 4.2 Lipase (<78) U/L 31 COVID-19 Source Nasopharynx SARS-CoV-2 (PCR) (Negative) Negative Influenza Type A (PCR) (Negative) Negative Influenza Type B (PCR) (Negative) Negative RSV (PCR) (Negative) Negative Quality:SDOH Health Related Social Needs: No Data to Display PFSH All Active Problems (Updated 11/29/24 @ 03:23 by Richard Maurer MD) Elevated blood pressure reading with diagnosis of hypertension (Acute) Pharyngitis (Acute) Nutritional disorder (Acute) Bunion (Acute) Abnormality of nail tissue (Acute) Normal colonoscopy (Acute) Vocal cord dysfunction (Acute) Ulnar neuropathy at elbow of right upper extremity (Acute 10/12/14) Femoroacetabular impingement of left hip (Acute) Subcutaneous mass of left lower extremity (Acute) Atopic dermatitis (Acute) Upper respiratory infection (Acute) Hernia, ventral (Acute) 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 (Acute) Migraine (Chronic) Vaccine contraindicated (Chronic) NO LIVE VACCINES Depression (Chronic) Vertigo (Acute) Acquired deformity of foot (Acute) Asthma, exercise induced (Acute) Vitamin D deficiency, unspecified (Acute) Erectile dysfunction (Acute) Bilateral radicular pain (Acute) lower legs Acquired inequality of length of feet (Acute) Scoliosis (Acute) Neuropathy (Acute) Nail dystrophy (Acute) Sleep apnea (Acute) Medical History History of CVA (cerebrovascular accident) age 11 with chronic left weakness and numbness; and in 2019 with left ataxia, dysarthria and dysphagia (resolved) Hypertension Hypothyroidism (acquired) RLS (restless legs syndrome) Left hemiparesis 2019 Major depression, single episode Acquired unequal limb length Mass of neck Lung field abnormal Hx of diabetic gastroparesis Lumbar radiculopathy Asthma Tardive dyskinesia (10/12/14) Weakness of left lower extremity Hernia History of diabetes mellitus, type I no longer after transplant Surgical History Back pain with history of spinal surgery History of colonoscopy (~03/2022) History of carpal tunnel release Right Trigger finger, right middle finger S/P release on 02/08/2020 History of shoulder surgery R shoulder History of esophagogastroduodenoscopy (EGD) History of colonoscopy 2014-pitting of colonic mucosa History of arthroscopic knee surgery Left History of appendectomy History of pancreas transplant 08/27/13 Family History (Updated 11/22/24 @ 13:11 by Nadia Faustin) Father COPD (chronic obstructive pulmonary disease) Mother Hypertension Status post heart valve replacement AGE 7 Migraine Parkinsons Brother Enlarged prostate no cancer Paternal Grandmother Coronary heart disease Other Heart disease Social History Smoking/Tobacco Use Status: Never Smoking risk assessment performed?: Yes Alcohol Intake: never Drug use: Never Substance use type: does not use Household members: family Housing: house Pets and animals: Yes Pets and animals: cat(s) and dog(s) Current gender identity: male What is your relationship status?: Panel score (0-1 are the most socially isolated patients): 1 Seatbelt use: always Do you feel safe at home: Yes Do you feel safe in your relationship?: Yes
[2024-11-28 17:34] LABS: Lactate 2.2 mmol/L (<or=2.0)
[2024-11-28 17:36] LABS: HCT 47.9 % (40.0-50.0); HGB 16.1 g/dL (13.5-17.5); MCH 29.8 pg (27.0-33.0); MCHC 33.6 % (32.0-36.0); MCV 89 fL (80-95); MPV 10.6 fL (8.0-11.0); Platelet Count 240 10^3/uL (130-400); RDW 13.2 % (11.8-14.1); RDW-SD 42.2 fL; WBC 10.82 10^3/uL (4.4-10.8)
[2024-11-28] MEDS: Albuterol/Ipratropium 3 ML UPD VIAL UPD (17:44)
[2024-11-28] MEDS: Acetaminophen 500 MG TAB 1000 MG PO (17:44)
[2024-11-28 18:00] LABS: Absolute Lymphocyte Count 6.06 10^3/uL (1.2-3.4); Absolute Monocyte Count 0.32 10^3/uL (0.1-0.8); Absolute Neutrophil Count 4.44 10^3/uL (1.2-6.7); Atypical Lymphocytes % 8 %; Bands % 1 %
[2024-11-28 18:01] LABS: Diff Comment Manual Differential; RBC Morphology Normal
[2024-11-28 18:04] LABS: COVID-19 PCR Negative (Negative); Influenza A PCR Negative (Negative); Influenza B PCR Negative (Negative); RSV PCR Negative (Negative)
[2024-11-28 18:06] LABS: Source Nasopharynx
[2024-11-28 18:07] LABS: ALT 33 U/L (16-63); AST 21 U/L (15-37); Albumin 4.2 g/dL (3.4-5.0); Alkaline Phosphatase 154 U/L (46-116); Anion Gap 11.6 mmol/L (3-11); BUN 16 mg/dL (7-18); Bilirubin, Total 1.1 mg/dL (0.2-1.0); CO2 26.4 mmol/L (21.0-32.0); CREATININE 1.4 mg/dL (0.70-1.30); Calcium 9.3 mg/dL (8.5-10.1); Chloride 101 mmol/L (98-107); Estimated GFR 58.62 (mL/min/1.73m2); Glucose 119 mg/dL (74-106); Lipase 31 U/L (<78); Magnesium 1.9 mg/dL; Potassium 3.9 mmol/L (3.5-5.1); Sodium 139 mmol/L (136-145); Total Protein 7.8 g/dL (6.4-8.2); Troponin I 7 ng/L (<or=76)
[2024-11-28 18:08] LABS: C-Reactive Protein < 0.50 mg/dL (<or=0.5)
[2024-11-28 18:13] LABS: D-Dimer 382 ng/mlFEU (<500)
--- NOTE | 2024-11-28 18:15 | DI.RAD_ITS ---
Exam(s) XR CHEST 2V PA LATERAL EXAM: XR CHEST 2V PA LATERAL CLINICAL HISTORY: cough, SOB. TECHNIQUE: 2D digital imaging was performed. COMPARISON: CR,XR XR CHEST 2V PA LATERAL from 12/05/2023 FINDINGS: 2 views: Heart size is normal. The mediastinum is not widened. Right lung is clear. There is subsegmental atelectasis in the left lung base. No confluent infiltra charles and there are no pleural effusions. IMPRESSION: There is subsegmental platelike atelectasis in the left lung base. DATA REPOSITORY: RADIATION DOSE DELIVERED:
[2024-11-28 19:02] LABS: Troponin I 5 ng/L (<or=76)
[2024-11-28] MEDS: Amoxicillin 875/Clav. 125 TAB PO (19:33)
[2024-11-28] MEDS: Azithromycin 250 MG TAB 500 MG PO (19:33)
[2024-11-28] MEDS: Carvedilol 3.125 MG TAB PO (19:52)
[2024-11-28] MEDS: Losartan 50 MG TAB 100 MG PO (19:52)
[2024-11-28] MEDS: hydrALAZINE 25 MG TAB 50 MG PO (20:05)
--- NOTE | 2024-11-28 21:45 | NUR.NOTE ---
Patient was discharged from 1949, blood pressure was checked and noted to be 200/120. MD aware. Patient was administered his nightly medications and encouraged to remain until BP goes down. Patient waited until approximately 2009, and state he has to go home and take care of his dogs. He was strongly advised to remain until his blood pressure is more acceptable. He was adamant that he has to go home. Patient was advised to return to the hospital if he becomes concern.
== END 2024-11-29 03:37 | disposition home or self-care (01) ==
LOC: ER 19:31
PROVIDERS: Emergency Medicine; Emergency Provider Physician Assistant; PCP Family Medicine
DX: J06.9 Acute upper respiratory infection, unspecified (principal); J02.9 Acute pharyngitis, unspecified; E07.9 Disorder of thyroid, unspecified; I69.354 Hemiplegia and hemiparesis following cerebral infarction affecting left non-dominant side; I69.393 Ataxia following cerebral infarction; I69.322 Dysarthria following cerebral infarction; Z79.02 Long term (current) use of antithrombotics/antiplatelets; Z79.899 Other long term (current) drug therapy
CPT/HCPCS: 80053; 83690; 87637; 93005; 94640; 99285; 71046; 83605; 83735; 84484; 85025; 85379; 86140; 93010; J7620

== ENCOUNTER 2024-11-29 01:29 | Emergency (ER) | payer BC, SELFPAY ==
[2024-11-29 01:33] VITALS: BP 194/98; PULSE 98; RESP 16; TEMP 36.3; O2SAT 100
--- NOTE | 2024-11-29 01:37 | ED.GENADUL_ITS ---
Discharge Plan Disposition Patient Disposition: Home Condition: Good Discharge Details Clinical Impression: Upper respiratory infection, Pharyngitis, Elevated blood pressure reading with diagnosis of hypertension Primary Care Provider: Anna Mullen V ED Provider: Richard Maurer [place] [facility] and New Rx's Prescriptions: Continued meclizine 25 mg tablet 25 mg PO TID PRN nitroglycerin [Nitrostat] 0.4 mg tablet, sublingual 0.4 mg SL Q5M PRN verapamil 120 mg tablet extended release 180 mg PO DAILY valacyclovir 1 gram tablet 2,000 mg PO PRN PRN Patient Comments: not taking but have available if needed. polyethylene glycol 3350 [Miralax] 17 gram/dose powder 17 gm PO PRN PRN omega-3 fatty acids [Fish Oil Concentrate] 1,000 mg capsule 1,000 mg PO DAILY hydrochlorothiazide 25 mg tablet 25 mg PO BID isosorbide mononitrate 30 mg tablet extended release 24 hr 30 mg PO DAILY multivitamin [Daily Multi-Vitamin] 1 EACH tablet 1 ea PO DAILY levothyroxine 175 MCG tablet 137 mcg PO DAILY magnesium gluconate 27 MG tablet 27 mg PO DAILY venlafaxine 150 MG tablet extended release 24hr 225 mg PO DAILY mycophenolate mofetil [CellCept] 250 mg capsule 250 mg PO 2 CAPS BID albuterol sulfate [ProAir HFA] 90 mcg/actuation HFA aerosol inhaler 2 puff inhalation 6XD fexofenadine [Allergy Relief (fexofenadine)] 180 mg tablet 180 mg PO DAILY cholecalciferol (vitamin D3) 125 mcg (5,000 unit) capsule 125 mcg PO DAILY Rx Instructions: reports he is taking 10,000 IU [id number]. 09/15/22 tacrolimus [Prograf] 1 mg capsule 1 mg PO DAILY atorvastatin [Lipitor] 20 mg tablet 20 mg PO HS baclofen 10 mg tablet 10 mg PO QHS budesonide 32 mcg/actuation spray,non-aerosol 2 spray intranasal DAILY Rx Instructions: administer into each nostril pantoprazole 40 MG tablet,delayed release (DR/EC) 40 mg PO BID gabapentin 300 mg capsule 600 mg PO DIRECTED Rx Instructions: Per pt. takes 600 mg am, 1200 mg suppertime, 600 mg HS ondansetron 4 MG tablet,disintegrating 4 mg PO Q6H PRN PRN (Reason: Nausea / Vomiting) Qty: 20 0RF acetaminophen [Tylenol Extra Strength] 500 mg Tablet 1,000 mg PO Q6H PRN tacrolimus [Prograf] 0.5 mg capsule 0.5 mg PO DAILY hydralazine 50 mg tablet 50 mg PO DAILY carvedilol 12.5 mg tablet 3.125 mg PO BID Patient Comments: TAKE ONE TABLET BY MOUTH TWICE A DAY bupropion HCl 300 mg tablet extended release 24 hr 300 mg PO DAILY Patient Comments: TAKE ONE TABLET BY MOUTH EVERY MORNING cyclobenzaprine 5 mg tablet 5 mg PO TID PRNQty: 10 0RF amoxicillin-pot clavulanate 875-125 mg tablet 1 tab PO BID 5 Days Qty: 9 0RF azithromycin 250 mg tablet 250 mg PO DAILY 4 Days Qty: 4 0RF Rx Instructions: start on day 2 of therapy clopidogrel [Plavix] 75 mg Tablet 75 mg PO HS losartan 100 mg tablet 1 tab PO DAILY Discharge Instructions Additional Instructions: Your repeat EKG and laboratory studies remained stable. Your blood pressure came down on its own. A CT of your neck reveals no evidence of abscess or infection. There is evidence of reflux which appears to be a chronic problem. Continue your current medications as previously prescribed. Take the antibiotics as previously directed. You may try Cepacol lozenges to help with the throat pain. Humidifier in your room and staying hydrated will likely help. Follow-up with primary care in the next coming week for recheck. Return to ED for any severe worsening headache, neurologic change, chest pain, shortness of breath, inability to swallow, other concerns. Referrals: Anna Mullen MD [Primary Care Provider] - [facility] General Mode of arrival: ambulatory . Date/Time Provider Initiated Documentation: 11/29/24 01:30 . Limitations to Documentation: no limitations . Information obtained by: patient, RN notes reviewed and old records reviewed . HPI Narrative: Patient returns to ED after being seen here earlier this afternoon with continued complaint of worsening sore throat and elevated blood pressure. Patient was seen earlier with complaint of shortness of breath. He was placed on Augmentin and azithromycin despite a reassuring workup due to his immunocompromised state. He reports that since being at home his throat pain has become much worse. When he attempts to lie down and sleep he feels like his breathing gets worse and his throat closes off. He has also been following his blood pressure at home which has remained elevated. He does take blood pressure medication and typically checks it at home once or twice a day. It is normally in good range. Today it has been elevated at home and was here. However, he denies having headache, visual change, neurologic change, chest pain, shortness of breath beyond what he was experiencing earlier. Related Data Home Medications ?Medication ?Instructions ?Recorded ?Confirmed levothyroxine 175 mcg tablet 137 mcg PO DAILY 08/21/14 11/29/24 multivitamin (Daily Multi-Vitamin 1 ea PO DAILY 08/21/14 11/29/24 tablet) magnesium gluconate 27 mg 27 mg PO DAILY 10/12/14 11/29/24 magnesium (500 mg) tablet pantoprazole 40 mg tablet,delayed 40 mg PO BID 05/15/16 11/29/24 release venlafaxine 150 mg tablet,extended 225 mg PO DAILY 07/22/17 11/29/24 release 24 hr ondansetron 4 mg disintegrating 4 mg PO Q6H PRN PRN Nausea / 10/12/17 11/29/24 tablet Vomiting ##20 omega-3 fatty acids 1,000 mg 1,000 mg PO DAILY 10/18/18 11/29/24 capsule (Fish Oil Concentrate) polyethylene glycol 3350 17 17 gm PO PRN PRN 10/18/18 11/29/24 gram/dose oral powder (Miralax) valacyclovir 1 gram tablet 2,000 mg PO PRN PRN 10/18/18 11/29/24 meclizine 25 mg tablet 25 mg PO TID PRN 03/29/19 11/29/24 mycophenolate mofetil 250 mg 250 mg PO 2 CAPS BID 03/29/19 11/29/24 capsule (CellCept) nitroglycerin 0.4 mg sublingual 0.4 mg sublingual Q5M PRN 03/29/19 11/29/24 tablet (Nitrostat) clopidogrel 75 mg tablet (Plavix) 75 mg PO HS 08/08/19 11/29/24 acetaminophen 500 mg tablet 1,000 mg PO Q6H PRN 02/08/20 11/29/24 (Tylenol Extra Strength) gabapentin 300 mg capsule 600 mg PO DIRECTED 05/15/20 11/29/24 albuterol sulfate 90 mcg/actuation 2 puff inhalation 6XD 04/25/21 11/29/24 aerosol inhaler (ProAir HFA) losartan 100 mg tablet 1 tab PO DAILY 03/05/22 11/29/24 fexofenadine 180 mg tablet 180 mg PO DAILY 03/27/22 11/29/24 (Allergy Relief (fexofenadine)) cholecalciferol (vitamin D3) 125 125 mcg PO DAILY 09/15/22 11/29/24 mcg (5,000 unit) capsule hydrochlorothiazide 25 mg tablet 25 mg PO BID 09/15/22 11/29/24 tacrolimus 1 mg capsule, 1 mg PO DAILY 09/15/22 11/29/24 immediate-release (Prograf) verapamil 120 mg tablet,extended 180 mg PO DAILY 09/15/22 11/29/24 release isosorbide mononitrate 30 mg 30 mg PO DAILY 12/24/22 11/29/24 tablet,extended release 24 hr bupropion HCl 300 mg 24 hr tablet, 300 mg PO DAILY 02/14/24 11/29/24 extended release carvedilol 12.5 mg tablet 3.125 mg PO BID 02/14/24 11/29/24 cyclobenzaprine 5 mg tablet 5 mg PO TID PRN #10 tabs 02/14/24 11/29/24 hydralazine 50 mg tablet 50 mg PO DAILY 02/14/24 11/29/24 tacrolimus 0.5 mg capsule, 0.5 mg PO DAILY 02/14/24 11/29/24 immediate-release (Prograf) atorvastatin 20 mg tablet (Lipitor) 20 mg PO HS 11/22/24 11/29/24 baclofen 10 mg tablet 10 mg PO QHS 11/22/24 11/29/24 budesonide 32 mcg/actuation nasal 2 spray intranasal DAILY 11/22/24 11/29/24 spray amoxicillin 875 mg-potassium 1 tab PO BID 5 days #9 tabs 11/28/24 11/29/24 clavulanate 125 mg tablet azithromycin 250 mg tablet 250 mg PO DAILY 4 days #4 tabs 11/28/24 11/29/24 Previous Rx's ?Medication ?Instructions ?Recorded ondansetron 4 mg disintegrating 4 mg PO Q6H PRN PRN Nausea / 10/12/17 tablet Vomiting ##20 cyclobenzaprine 5 mg tablet 5 mg PO TID PRN #10 tabs 02/14/24 amoxicillin 875 mg-potassium 1 tab PO BID 5 days #9 tabs 11/28/24 clavulanate 125 mg tablet azithromycin 250 mg tablet 250 mg PO DAILY 4 days #4 tabs 11/28/24 Allergies Allergy/AdvReac Type Severity Reaction Status Date / Time metoclopramide HCl (From Allergy Intermediate TARDIIVE Unverified 11/29/24 01:37 Reglan) DYSKINESIA oxycodone HCl (From Percocet) Allergy Intermediate Other (See Unverified 11/29/24 01:37 Comment) simvastatin (From Zocor) Allergy Intermediate MYOCLONUS Unverified 11/29/24 01:37 esomeprazole magnesium (From AdvReac Diarrhea Unverified 11/29/24 01:37 Nexium) lisinopril AdvReac Reaction Verified 11/29/24 01:37 to Maxdose DIMOTROPE Allergy Mild Hives Uncoded 11/29/24 01:37 ORNADE DIMOTROPE Allergy Unknown Hives Uncoded 11/29/24 01:37 General Stated Complaint: GenMedical ROBIN: 4 Exam Narrative Exam Narrative: Const: WDWN male in NAD. VS per triage. HEENT: NC/AT. Normal facial exam. Oropharynx/posterior oropharynx without erythema, ulceration, edema, exudate. Neck: Supple. Trachea midline. No significant adenopathy appreciated. Lungs: Normal respiratory effort. Lungs are clear. Cor: RRR without murmur. Good radial pulses. Neuro: A+O x 3. Normal speech, mentation. Cranial nerves II - XII grossly intact. Old left-sided weakness. Course Vital Signs Vital signs: Vital Signs Temperature 97.3 F L 11/29/24 01:33 Pulse 98 H 11/29/24 01:33 Respiratory Rate 16 11/29/24 01:33 Blood Pressure 194/98 H 11/29/24 01:33 Pulse Oximetry 100 11/29/24 01:33 Temperature 97.3 F L 11/29/24 01:33 Temperature Source Oral 11/29/24 01:33 Pulse 98 H 11/29/24 01:33 Respiratory Rate 16 11/29/24 01:33 Blood Pressure 194/98 H 11/29/24 01:33 Blood Pressure Position Sitting 11/29/24 01:33 Pulse Oximetry 100 11/29/24 01:33 Oxygen Delivery Method Room Air 11/29/24 01:33 Oxygen Flow Rate 0 11/29/24 01:33 Medical Decision Making Patient returns to ED complaint of worsening sore throat and difficulty swallowing and breathing as well as continued high blood pressure. Patient seen here earlier with similar complaints and shortness of breath. Workup included labs, EKG, chest x-ray all of which were reassuring. His blood pressure was elevated during his entire stay here. It has continued to be elevated at home. He has been taking his medications as previously directed. He was started on antibiotics because of his immunocompromise state from being on medications for transplant. He is also reporting worsening sore throat and a sensation that it is closing off every time he tries to lie down. He has had no fever. He has had no headache, neurologic change, shortness of breath or chest pain since leaving here. His blood pressure does remain elevated. However, I do not think he is having any evidence of urgency or emergency. I will go ahead and repeat an EKG, troponin, BMP. Suspect blood pressure is elevated due to feeling u nwell, having pain, being anxious. Because of his complaint of neck pain, difficulty swallowing, sensation of choking/throat closing when lying down hide will obtain CT of the neck though my suspicion for phlegmon or abscess is low. Will try some viscous lidocaine to see if this helps with his throat pain which I think is related to a viral illness that he has been experiencing. Patient's repeat EKG is unchanged and has no acute ST findings. And BMP remain normal. Blood pressure has come down without intervention. Viscous lidocaine helped with his throat pain. Preliminary read of his CT scan shows some distention of the esophagus with air and a little bit of fluid suggesting reflux. There is no evidence of phlegmon, abscess or other acute finding. Discussed with patient who is feeling better. Suggest trying Cepacol lozenges to help with his throat pain. Continue his regular medications and complete the antibiotics as previously prescribed. Follow-up with primary care this coming week if not improving. Return precautions provided. Medical Records Medical records reviewed: Yes I reviewed the patient's medical records. Medical records narrative: ED visit earlier in the day. Lab Data Lab results reviewed: Yes I reviewed the patient's lab results. Lab results narrative: See MDM ECG Data Attestation: I personally reviewed and interpreted this ECG (s) as follows: Prior ECG tracings: available for review Interpretation: See EKG/MDM PFSH All Active Problems (Updated 11/29/24 @ 03:23 by Richard Maurer MD) Elevated blood pressure reading with diagnosis of hypertension (Acute) Pharyngitis (Acute) Nutritional disorder (Acute) Bunion (Acute) Abnormality of nail tissue (Acute) Normal colonoscopy (Acute) Vocal cord dysfunction (Acute) Ulnar neuropathy at elbow of right upper extremity (Acute 10/12/14) Femoroacetabular impingement of left hip (Acute) Subcutaneous mass of left lower extremity (Acute) Atopic dermatitis (Acute) Upper respiratory infection (Acute) Hernia, ventral (Acute) 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 (Acute) Migraine (Chronic) Vaccine contraindicated (Chronic) NO LIVE VACCINES Depression (Chronic) Vertigo (Acute) Acquired deformity of foot (Acute) Asthma, exercise induced (Acute) Vitamin D deficiency, unspecified (Acute) Erectile dysfunction (Acute) Bilateral radicular pain (Acute) lower legs Acquired inequality of length of feet (Acute) Scoliosis (Acute) Neuropathy (Acute) Nail dystrophy (Acute) Sleep apnea (Acute) Medical History History of CVA (cerebrovascular accident) age 11 with chronic left weakness and numbness; and in 2019 with left ataxia, dysarthria and dysphagia (resolved) Hypertension Hypothyroidism (acquired) RLS (restless legs syndrome) Left hemiparesis 2019 Major depression, single episode Acquired unequal limb length Mass of neck Lung field abnormal Hx of diabetic gastroparesis Lumbar radiculopathy Asthma Tardive dyskinesia (10/12/14) Weakness of left lower extremity Hernia History of diabetes mellitus, type I no longer after transplant Surgical History Back pain with history of spinal surgery History of colonoscopy (~03/2022) History of carpal tunnel release Right Trigger finger, right middle finger S/P release on 02/08/2020 History of shoulder surgery R shoulder History of esophagogastroduodenoscopy (EGD) History of colonoscopy 2014-pitting of colonic mucosa History of arthroscopic knee surgery Left History of appendectomy History of pancreas transplant 08/27/13 Family History (Updated 11/22/24 @ 13:11 by Nadia Faustin) Father COPD (chronic obstructive pulmonary disease) Mother Hypertension Status post heart valve replacement AGE 7 Migraine Parkinsons Brother Enlarged prostate no cancer Paternal Grandmother Coronary heart disease Other Heart disease Social History Smoking/Tobacco Use Status: Never Smoking risk assessment performed?: Yes Alcohol Intake: never Drug use: Never Substance use type: does not use Household members: family Housing: house Pets and animals: Yes Pets and animals: cat(s) and dog(s) Current gender identity: male What is your relationship status?: Panel score (0-1 are the most socially isolated patients): 1 Seatbelt use: always Do you feel safe at home: Yes Do you feel safe in your relationship?: Yes
[2024-11-29 01:39] VITALS: RESP 16
--- NOTE | 2024-11-29 01:45 | RT.EKG_ITS ---
APPROVED REPORT Exam: Resting ECG Reason for Exam: elevated BP Patient Location: E HR:85 bpm ECG Measurements Heart Rate 85 AXIS DE 178 P 52 QRSd 95 QRS 44 QT 366 T 30 QTc 436 Conclusion Sinus rhythm...normal P axis, V-rate 60- 99 Probable left atrial enlargement...P >50mS, <-0.10mV V1 I have reviewed and interpreted ECG and agree with software generated interpretation. There are no significant changes compared to prior EKG performed on 11/28/2024 at 17:11.
--- NOTE | 2024-11-29 01:45 | DI.CT_ITS ---
Exam(s) CT NECK W EXAM: CT NECK W CLINICAL HISTORY: difficulty breathing/swallowing; painful neck. TECHNIQUE: Imaging Protocol: Axial computed tomography images with coronal and sagittal reformatted images were created and reviewed. CONTRAST MATERIAL: Intravenous: Omnipaque 350 Contrast volume:100mL COMPARISON: CT CT HEAD CERVICAL SPINE WO from 02/14/2024 FINDINGS: The patient was very anxious which resulted in over 4 minutes delay between the injection time and th e scan time. Visualized intracranial structures: Within normal limits. Orbits and orbital soft tissues: Within normal limits. Visualized paranasal sinuses: Within normal limits. Nasopharynx: Within normal limits. Oropharynx: Within normal limits. Hypopharynx: Within normal limits. Larynx: Within normal limits. Retropharyngeal space: Within normal limits. Parotids/submandibular: Within normal limits. Thyroid gland: Within normal limits. Lymphadenopathy: There is scattered lymph nodes seen along the level one to level three all measurin g less than 8 mm in short axis diameter which are physiologic in nature. Trachea: Within normal limits. Lung apices: Within normal limits. Bones: Within normal limits for the patient's age. There is reversal of the normal cervical lordosis . Age-appropriate degenerative changes are seen throughout the cervical spine. Carotids/Jugular: Within normal limits. Soft tissues: Within normal limits. Esophagus: The esophagus is mildly distended. There is a tiny amount of fluid seen layering in the d istal esophagus. This may represent gastroesophageal reflux. Please correlate clinically. IMPRESSION: 1. Normal CT scan of the neck. 2. Tiny amount of fluid seen in the mildly distended esophagus. This may represent a mild gastroesop hageal reflux. Please correlate clinically. If further evaluation is warranted, barium swallow may be obtained. Unexpected findings RADIATION DOSE DELIVERED: 336.48mGy.cm Total DLP 336.48mGy.cm Total DLP DATA REPOSITORY: All CT scans at this facility are submitted to the National Radiology Data Registry (NRDR) Dose Index Registry (DIR) with the [employer] ([employer]). RADIATION OPTIMIZATION: All CT scans at this facility use at least one of these dose optimization te chniques: automated exposure control; mA and/or kV adjustment per patient size (includes targeted exa ms where dose is matched to clinical indication); or iterative reconstruction.
[2024-11-29] MEDS: Normal Saline 500 ML IV (02:05)
[2024-11-29] MEDS: Lidocaine 2% Viscous 15 ML CUP PO (02:05)
[2024-11-29] MEDS: Omnipaque 350 MG/ML 100 ML BTL IJ (02:09)
[2024-11-29] MEDS: Normal Saline - Diluent 50 ML VIAL IJ (02:11)
[2024-11-29] MEDS: Normal Saline Flush 10 ML SYR IVP (02:11)
[2024-11-29 02:27] LABS: Anion Gap 11.8 mmol/L (3-11); BUN 14 mg/dL (7-18); CO2 28.2 mmol/L (21.0-32.0); CREATININE 1.3 mg/dL (0.70-1.30); Calcium 9.4 mg/dL (8.5-10.1); Chloride 99 mmol/L (98-107); Estimated GFR 64.07 (mL/min/1.73m2); Glucose 127 mg/dL (74-106); Potassium 3.6 mmol/L (3.5-5.1); Sodium 139 mmol/L (136-145); Troponin I 5 ng/L (<or=76)
[2024-11-29 03:13] VITALS: BP 164/96; PULSE 83; RESP 16; O2SAT 97
--- NOTE | 2024-11-29 03:15 | DI.VRAD_ITS ---
PROCEDURE INFORMATION: Exam: CT Neck With Contrast Exam date and time: 11/29/2024 2:11 AM Age: 59 years old Clinical indication: Dysphagia / difficulty swallowing and dyspnea / difficulty breathing; Neck pain; Difficulty breathing/swallowing; Painful neck TECHNIQUE: Imaging protocol: Computed tomography of the neck with contrast. Radiation optimization: All CT scans at this facility use at least one of these dose optimization techniques: automated exposure control; mA and/or kV adjustment per patient size (includes targeted exams where dose is matched to clinical indication); or iterative reconstruction. Contrast material: OMNIPAQUE 350; Contrast volume: 100 ml; Contrast route: INTRAVENOUS (IV); COMPARISON: CT BRAIN NECK CTA 08/06/2019 7:03 AM FINDINGS: Salivary glands: Normal. Glands are normal in size. Pharynx: Unremarkable. No significant tonsillar enlargement. Larynx: Unremarkable. Epiglottis is normal. Thyroid: Normal. No enlarged or calcified nodules. Trachea: Visualized trachea is unremarkable. Lungs: Lung apices and visualized airways are clear. Esophagus: The proximal to mid esophagus is mildly distended, mostly with gas but also with a small amount of fluid, most likely signifying gastroesophageal reflux; however, nonvisualized distal esophageal obstruction not excluded. Lymph nodes: Unremarkable. No lymphadenopathy. Bones/joints: Unremarkable. No acute fracture. Soft tissues: No retropharyngeal effusion. IMPRESSION: The proximal to mid esophagus is mildly distended, mostly with gas but also with a small amount of fluid, most likely signifying gastroesophageal reflux; however, nonvisualized distal esophageal obstruction not excluded. Dictated and Authenticated by: Cristobal Tinoco MD. Orderin Erasto Ramos MD
[2024-11-29 03:35] VITALS: BP 167/99; PULSE 88; RESP 18; O2SAT 97
== END 2024-11-29 03:37 | disposition home or self-care (01) ==
PROVIDERS: Emergency Provider Emergency Medicine; PCP Family Medicine
DX: J06.9 Acute upper respiratory infection, unspecified (principal); J02.9 Acute pharyngitis, unspecified; R03.0 Elevated blood-pressure reading, without diagnosis of hypertension
CPT/HCPCS: 36415; 70491; 80048; 93005; 96360; 99285; 84484; 93010; 99284; J3490

== ENCOUNTER 2024-12-14 10:26 | Outpatient (CLI) | payer BC, SELFPAY ==
--- NOTE | 2024-12-14 10:15 | DI.RAD_ITS ---
Exam(s) XR CHEST 2V PA LATERAL EXAM: XR CHEST 2V PA LATERAL CLINICAL HISTORY: Cough, R05.9, eval pathology. TECHNIQUE: 2D digital imaging was performed. COMPARISON: CR XR CHEST 2V PA LATERAL from 11/28/2024 FINDINGS: 2 views: Heart size is normal. The mediastinum is not widened. Right lung remains clear. There is mild subsegmental platelike atelectasis in the left lung base aga in noted. No confluent infiltrates. No pleural effusions. No pulmonary edema. IMPRESSION: Unchanged mild scarring or platelike atelectasis in left lung base, unchanged from 11/28/24. DATA REPOSITORY: RADIATION DOSE DELIVERED:
== END 2024-12-14 10:46 ==
LOC: DI 10:26
PROVIDERS: PCP Family Medicine; Visit Provider Nurse Practitioner Family
DX: R05.9 Cough, unspecified (principal); J98.11 Atelectasis
CPT/HCPCS: 71046

== ENCOUNTER 2024-12-15 11:42 | Outpatient (CLI) | payer BC, SELFPAY ==
[2024-12-15 11:35] LABS: Absolute Eosinophil Count 0.33 10^3/uL (0.0-0.7); Eosinophils % 3.4 %; HCT 44.9 % (40.0-50.0); HGB 14.7 g/dL (13.5-17.5); Lactate 1.3 mmol/L (<or=2.0); MCH 30.1 pg (27.0-33.0); MCHC 32.7 % (32.0-36.0); MCV 92 fL (80-95); MPV 9.9 fL (8.0-11.0); Platelet Count 248 10^3/uL (130-400); RBC 4.89 10^6/uL (4.36-5.78); RDW 13.8 % (11.8-14.1); RDW-SD 46.3 fL; WBC 9.71 10^3/uL (4.4-10.8)
[2024-12-15 11:56] LABS: Absolute Basophil Count 0.49 10^3/uL (0.0-0.2); Absolute Monocyte Count 0.68 10^3/uL (0.1-0.8); Absolute Neutrophil Count 5.05 10^3/uL (1.2-6.7); Atypical Lymphocytes % 12 %; Diff Comment Manual Differential; RBC Morphology Normal
== END 2024-12-15 11:43 | disposition home or self-care (01) ==
LOC: LBO 11:42
PROVIDERS: PCP Family Medicine; Visit Provider Family Medicine
DX: R53.83 Other fatigue (principal)
CPT/HCPCS: 36415; 83605; 85025

== ENCOUNTER 2024-12-23 10:46 | Outpatient (CLI) | payer BC, SELFPAY ==
[2024-12-26 15:01] LABS: Leukemia/Lymphoma by FC (Blood (See below)
== END 2024-12-23 10:47 | disposition home or self-care (01) ==
LOC: LBO 10:47
PROVIDERS: PCP Family Medicine; Visit Provider Family Medicine
DX: D72.820 Lymphocytosis (symptomatic) (principal)
CPT/HCPCS: 36415; 88185; 88184; 88189

== ENCOUNTER 2025-01-09 04:50 | Outpatient (CLI) | payer BC, SELFPAY ==
[2025-01-09] MEDS: Levalbuterol HFA 15 GM INH 4 PUFF IH (09:22)
[2025-01-09] MEDS: Inhaler, Assist Device 1 EACH MC (09:22)
--- NOTE | 2025-01-09 13:49 | W.PFT ---
Date of service: 01/09/25 Time of Service: 07:59 Pulmonary Function Test Result Indications: Dyspnea Interpretation Spirometry: There is no airflow limitation. No significant bronchodilator response. Lung Volumes: Normal lung volumes Diffusion Capacity: Normal diffusion Airway Pressure: Normal airways resistance Impression Normal pulmonary function testing Clinical Correlation therefore is recommended.
== END 2025-01-09 04:51 | disposition home or self-care (01) ==
LOC: RT 04:50
PROVIDERS: PCP Family Medicine; Visit Provider Student in an Organized Health Care Education/Training Program
DX: R06.09 Other forms of dyspnea (principal)
CPT/HCPCS: 94060; 94726; 94729

== ENCOUNTER 2025-04-11 15:07 | Outpatient (CLI) | payer BC, SELFPAY ==
--- NOTE | 2025-04-11 | DI.RAD_ITS ---
Exam(s) XR STERNOCLAVICULAR JOINTS EXAM: XR STERNOCLAVICULAR JOINTS INDICATION: Pain in right shoulder. COMPARISON: CR XR CHEST 2V PA LATERAL from 12/14/2024 TECHNIQUE: 2D digital imaging was performed. Five views. FINDINGS: No evidence of fracture. The sternoclavicular joints appear symmetric. The visualized portions of the lungs appear clear. The shoulders are not included on the examination. Scoliosis is noted in the upper thoracic spine. IMPRESSION: No visible abnormality involving the sternoclavicular joints. DATA REPOSITORY: RADIATION DOSE DELIVERED:
== END 2025-04-11 15:27 ==
LOC: DI 15:07
PROVIDERS: PCP Family Medicine; Visit Provider Family Medicine
DX: M25.512 Pain in left shoulder (principal)
CPT/HCPCS: 71130

== ENCOUNTER 2025-04-20 16:13 | Outpatient (CLI) | payer BC, SELFPAY ==
--- NOTE | 2025-04-20 11:45 | DI.RAD_ITS ---
Exam(s) XR HAND LT COMPLETE EXAM: XR HAND LT COMPLETE CLINICAL HISTORY: eval fx M79.642 PAIN LT HAND. TECHNIQUE: 2D digital imaging was performed. COMPARISON: No exams were available for comparison FINDINGS: 3 views No evidence of acute fracture nor dislocation. Bone density normal. No osseous lesions nor erosions. There is a small 1 millimeter calcific density adjacent to the lateral cortex of neck of the proximal phalanx of the 5th finger. This does not have the appearance of an acute fracture site. Also incidentally noted is a small benign-appearing bone island in the lateral aspect of the head of the middle phalanx of the 2nd-index finger. There are no lytic osseous lesions evident. IMPRESSION: Findings as above but no fractures evident. DATA REPOSITORY: RADIATION DOSE DELIVERED:
--- NOTE | 2025-04-20 11:45 | DI.RAD_ITS ---
Exam(s) XR WRIST LT COMPLETE EXAM: XR WRIST LT COMPLETE CLINICAL HISTORY: eval fx M25.532 PAIN LT WRIST. TECHNIQUE: 2D digital imaging was performed. COMPARISON: No exams were available for comparison FINDINGS: 3 views No evidence of fracture or dislocation nor significant ulnar variance. Scaphoid and scapholunate distance are normal. There are no degenerative changes in in the carpal row bones. Bone density normal. No osseous lesions. No radiopaque foreign bodies. IMPRESSION: No acute osseous findings in the left wrist. DATA REPOSITORY: RADIATION DOSE DELIVERED:
== END 2025-04-20 16:33 ==
LOC: DI 16:13
PROVIDERS: PCP Family Medicine; Visit Provider Nurse Practitioner Family
DX: M79.642 Pain in left hand (principal); M25.532 Pain in left wrist
CPT/HCPCS: 73110; 73130

== ENCOUNTER 2025-05-07 04:01 | Emergency (ER) | payer BC, SELFPAY ==
[2025-05-07] VITALS (28 sets, daily range): BP systolic 135–187; BP diastolic 80–113; PULSE 52–105; RESP 14–28; TEMP 36.2–37.1; O2SAT 85–98
--- NOTE | 2025-05-07 04:15 | RT.EKG_ITS ---
APPROVED REPORT Exam: Resting ECG Reason for Exam: syncope Patient Location: E HR:86 bpm ECG Measurements Heart Rate 86 AXIS AK 167 P 55 QRSd 91 QRS 70 QT 368 T 38 QTc 440 Conclusion Sinus rhythm...normal P axis, V-rate 60- 99 I have reviewed and interpreted ECG and agree with software generated interpretation.
--- NOTE | 2025-05-07 04:15 | DI.CT_ITS ---
Exam(s) CT BRAIN NECK CTA EXAM: CT BRAIN NECK CTA CLINICAL HISTORY: hx of stroke, now syncope, globus sensation. TECHNIQUE: Imaging Protocol: Axial CT angiography was performed with multi- slice acquisition and multi-planar and MIP reconstructions. CONTRAST MATERIAL: Intravenous: Omnipaque 350 Contrast volume:100 ml COMPARISON: CT CT HEAD WO from 09/28/[address] NECK W from 11/29/2024 FINDINGS: CT Head W/O and W contrast: Ventricles and Extra axial spaces: Normal in size and morphology for the patient's age. Hemorrhage: None. Cerebral parenchyma: No evidence of acute infarct or mass. Midline shift: None. Brainstem/Cerebellum: No acute findings.. Calvarium: Normal. Visualized Paranasal sinuses/Mastoids: Clear. Soft Tissues: Unremarkable. Enhancement: Normal. Venous sinuses are patent. CTA Brain W: Internal Carotid Arteries: Right: No aneurysm, occlusion or significant stenosis. Left: No aneurysm, occlusion or significant stenosis. Middle Cerebral Arteries: Right: No aneurysm, occlusion or significant stenosis. Left: No aneurysm, occlusion or significant stenosis. Anterior Cerebral Arteries: Right: No aneurysm, occlusion or significant stenosis. Left: No aneurysm, occlusion or significant stenosis. Posterior cerebral Arteries: Right: No aneurysm, occlusion or significant stenosis. Left: No aneurysm, occlusion or significant stenosis. Vertebral Arteries: Right: No aneurysm, occlusion or significant stenosis. Left: No aneurysm, occlusion or significant stenosis. Basilar Artery: No aneurysm, occlusion or significant stenosis. CTA Neck W: Visualized aorta: Unremarkable. Visualized pulmonary arteries: Unremarkable. Subclavian arteries: Unremarkable. Common Carotid: Right: No dissection, occlusion or significant stenosis. Left: No dissection, occlusion or significant stenosis. External Carotid: Right: No dissection, occlusion or significant stenosis. Left: No dissection, occlusion or significant stenosis. Internal Carotid: Right: Calcific plaque at the origin causing mild stenosis. No dissection, occlusion or significant stenosis. Left: Minimal calcific plaque. No dissection, occlusion or significant stenosis. Vertebral Artery: Right: Hypoplastic, terminates in PICA. No dissection, occlusion or significant stenosis. Left: No dissection, occlusion or significant stenosis. Lung Apices: No acute findings. Bones: No acute abnormality. Degenerative disc changes with prominent endplate osteophytes which project anteriorly. This may impinge on the esophagus and cause dysphagia. Soft Tissues: Normal. IMPRESSION: 1. CTA brain: Normal CTA examination of the [place]. 2. Head CT: No acute abnormality. 3. CTA neck: Calcific plaque at the origin of the right internal carotid artery without significant stenosis. The preliminary [facility] report was reviewed. RADIATION DOSE DELIVERED: Total DLP DATA REPOSITORY: All CT scans at this facility are submitted to the National Radiology Data Registry (NRDR) Dose Index Registry (DIR) with the [employer] ([employer]). RADIATION OPTIMIZATION: All CT scans at this facility use at least one of these dose optimization techniques: automated exposure control; mA and/or kV adjustment per patient size (includes targeted exams where dose is matched to clinical indication); or iterative reconstruction.
--- NOTE | 2025-05-07 04:15 | DI.CT_ITS ---
Exam(s) CT CHEST W EXAM: CT CHEST W CLINICAL HISTORY: hx of globus sensation in throat chest, r/o mass TECHNIQUE: Imaging Protocol: Axial computed tomography images with coronal and sagittal reformatted images were created and reviewed. Computer aided detection (CAD) was utilized. CONTRAST MATERIAL: Intravenous: Omnipaque 350 Contrast volume:100 ml. COMPARISON: CR XR CHEST 2V PA LATERAL from 12/14/2024 CR XR STERNOCLAVICULAR JOINTS from 04/11/[address] BRAIN NECK CTA from 05/07/2025 FINDINGS: Exam is mildly limited by streak artifact created by patient arm positioning. Pulmonary parenchyma: Lungs are suboptimally inflated. Mild basilar dependent changes. No consolidation. No dominant measurable mass. Tracheobronchial tree: No bronchiectasis or mucous plugging. Mediastinum and Jessica: No dominant adenopathy or fluid collection. Pleura: No effusion. No pneumothorax. Heart: The heart is not dilated. Moderate coronary artery calcifications are seen. Aorta: Thoracic aorta non-dilated. Mild atherosclerotic changes. Pulmonary arteries: Not optimally opacified. No gross evidence of emboli. Upper abdomen: No acute findings. Bones: Mild scoliosis anddegenerative changes in the spine with prominent osteophytes projecting anteriorly. Soft tissues: Unremarkable. IMPRESSION: No acute abnormality. The preliminary [facility] report was reviewed. RADIATION DOSE DELIVERED: Total DLP DATA REPOSITORY: All CT scans at this facility are submitted to the National Radiology Data Registry (NRDR) Dose Index Registry (DIR) with the [employer] ([employer]). RADIATION OPTIMIZATION: All CT scans at this facility use at least one of these dose optimization techniques: automated exposure control; mA and/or kV adjustment per patient size (includes targeted exams where dose is matched to clinical indication); or iterative reconstruction.
[2025-05-07] MEDS: LORazepam 20 MG/10 ML VIAL IVP (04:44)
[2025-05-07 04:48] LABS: Abs Immature Grans 0.04 10^3/uL (0.0-0.06); HCT 43.2 % (40.0-50.0); HGB 14.7 g/dL (13.5-17.5); Immature Grans % 0.5 %; MCH 29.4 pg (27.0-33.0); MCHC 34.0 % (32.0-36.0); MCV 86 fL (80-95); MPV 10.0 fL (8.0-11.0); Platelet Count 275 10^3/uL (130-400); RBC 5.00 10^6/uL (4.36-5.78); RDW 12.3 % (11.8-14.1); RDW-SD 38.2 fL; WBC 8.21 10^3/uL (4.4-10.8)
[2025-05-07] MEDS: Normal Saline 500 ML IV (04:48)
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
[2025-05-07 05:11] LABS: ALT 38 U/L (16-63); AST 25 U/L (15-37); Albumin 4.3 g/dL (3.4-5.0); Alkaline Phosphatase 152 U/L (46-116); Anion Gap 6.5 mmol/L (3-11); BUN 19 mg/dL (7-18); Bilirubin, Total 1.0 mg/dL (0.2-1.0); CO2 30.5 mmol/L (21.0-32.0); Calcium 9.2 mg/dL (8.5-10.1); Chloride 96 mmol/L (98-107); Estimated GFR 70.53 (mL/min/1.73m2); Glucose 117 mg/dL (74-106); Potassium 3.9 mmol/L (3.5-5.1); Sodium 133 mmol/L (136-145); TSH (W/Ref FT4) 1.80 uIU/mL (0.36-3.74); Total Protein 7.6 g/dL (6.4-8.2); Troponin I 9 ng/L (<or=76)
[2025-05-07 05:24] LABS: Glucose Negative (Negative)
[2025-05-07 05:26] LABS: INR 1.0 (0.9-1.1); PTT Activated 25.3 sec (20.6-30.2); Prothrombin Time 10.0 sec (9.1-11.1)
[2025-05-07 05:29] LABS: C & S Indicated? No; RBC 0-2 HPF (0-2); WBC Negative HPF (0-5)
[2025-05-07 06:01] LABS: Troponin I 8 ng/L (<or=76)
[2025-05-07] MEDS: Omnipaque 350 MG/ML 100 ML BTL IJ (06:18)
[2025-05-07] MEDS: Normal Saline Flush 10 ML SYR IVP (06:19)
[2025-05-07] MEDS: Normal Saline - Diluent 50 ML VIAL IJ (06:19)
--- NOTE | 2025-05-07 06:50 | DI.VRAD_ITS ---
PROCEDURE INFORMATION: Exam: CT Chest With Contrast; Diagnostic Exam date and time: 05/07/2025 5:52 AM Age: 59 years old Clinical indication: Other: HX of globus sensation in throat \T\ chest; Additional info: HX of globus sensation in throat \T\ chest, R/O mass TECHNIQUE: Imaging protocol: Diagnostic computed tomography of the chest with contrast. 3D rendering (Not supervised by radiologist): MIP and/or 3D reconstructed images were created by the technologist. Contrast material: OMNI 350; Contrast volume: 100 ml; Contrast route: INTRAVENOUS (IV); COMPARISON: CT CHEST/ABD/PEL W 02/14/2024 1:14 PM FINDINGS: Lungs: 5 mm ground-glass nodule in the lingular segment. No consolidation. No masses. Pleural spaces: Unremarkable. No pneumothorax. No pleural effusion. Heart: Unremarkable. No cardiomegaly. No pericardial effusion. Coronary arteries: Coronary artery calcification Lymph nodes: Unremarkable. No enlarged lymph nodes. Vasculature: Unremarkable. No aortic aneurysm. Bones/joints: Unremarkable. No acute fracture. Soft tissues: Unremarkable. IMPRESSION: No acute intrathoracic abnormality is appreciated Dictated and Authenticated by: Sola Baptiste MD. Orderin Angy George MD
--- NOTE | 2025-05-07 07:18 | DI.VRAD_ITS ---
Addendum created by Isra Tillman MD on 05/07/2025 7:28:32 AM EDT: Findings were discussed with AMPARO JUÁREZ at 05/07/2025 7:26 AM EDT. It is of interest that some right M2 branches are of smaller caliber than the left counterparts in this patient with history of an old stroke. There is no occlusion. Initial report created on 05/07/2025 7:17:55 AM EDT: PROCEDURE INFORMATION: Exam: CTA Head Without And With Contrast, Arteriography Exam date and time: 05/07/2025 5:52 AM Age: 59 years old Clinical indication: Stroke-like symptoms; Syncope/collapse and other: Globus sensation; Additional info: HX of stroke, now syncope, globus sensation TECHNIQUE: Imaging protocol: Computed tomographic angiography of the head without and with contrast. Exam focused on the arteries. 3D rendering (Not supervised by radiologist): MIP and/or 3D reconstructed images were created by the technologist. Contrast material: OMNI 350; Contrast volume: 100 ml; Contrast route: INTRAVENOUS (IV); Other technique: STROKE PROTOCOL was implemented. COMPARISON: CT BRAIN NECK CTA 03/11/2019 07:03 FINDINGS: ANTERIOR CIRCULATION: Right internal carotid artery: Intracranial segment is patent with no significant stenosis or occlusion. No aneurysm. Right middle cerebral artery: No occlusion or significant stenosis. No aneurysm. Right anterior cerebral artery: No occlusion or significant stenosis. No aneurysm. Left internal carotid artery: Intracranial segment is patent with no significant stenosis. No aneurysm. Left middle cerebral artery: No occlusion or significant stenosis. No aneurysm. Left anterior cerebral artery: No occlusion or significant stenosis. No aneurysm. POSTERIOR CIRCULATION: Right vertebral artery: No occlusion or significant stenosis. No aneurysm. Left vertebral artery: No occlusion or significant stenosis. No aneurysm. Basilar artery: No occlusion or significant stenosis. No aneurysm. Right posterior cerebral artery: No occlusion or significant stenosis. No aneurysm. Left posterior cerebral artery: No occlusion or significant stenosis. No aneurysm. HEAD: Brain: Normal. No hemorrhage. Unremarkable white matter. No mass effect. Cerebral ventricles: Normal. No ventriculomegaly. Bones: Unremarkable. No acute fracture. Paranasal sinuses: Visualized sinuses are normal. No fluid levels. Mastoid air cells: Visualized mastoids are normal. No mastoid effusion. Soft tissues: Unremarkable. IMPRESSION: 1. No large vessel occlusion. 2. Unremarkable CT head. ASSESSMENT: ASPECTS (Jud Stroke Program Early CT Score) is 10. PROCEDURE INFORMATION: Exam: CTA Neck Without And With Contrast Exam date and time: 05/07/2025 5:52 AM Age: 59 years old Clinical indication: Stroke-like symptoms; Syncope/collapse and other: Globus sensation; Additional info: HX of stroke, now syncope, globus sensation TECHNIQUE: Imaging protocol: Computed tomographic angiography of the neck without and with contrast. Exam focused on the cervical segments of the vasculature. 3D rendering (Not supervised by radiologist): MIP and/or 3D reconstructed images were created by the technologist. Contrast material: OMNI 350; Contrast volume: 100 ml; Contrast route: INTRAVENOUS (IV); COMPARISON: CT BRAIN NECK CTA 03/11/2019 07:03 FINDINGS: Right common carotid artery: No significant stenosis. No dissection or occlusion. Right internal carotid artery: Atheromatous calcification at the origin of the extracranial internal carotid artery with mild 41% stenosis. No dissection or occlusion. Right external carotid artery: No occlusion or significant stenosis of the origin. Left common carotid artery: No significant stenosis. No dissection or occlusion. Left internal carotid artery: No significant stenosis of the extracranial segment. No dissection or occlusion. Left external carotid artery: No occlusion or significant stenosis of the origin. 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 In No significant stenosis. No dissection or occlusion. Left vertebral artery: No significant stenosis. No dissection or occlusion. Soft tissues: No significant soft tissue swelling. Bones/joints: No acute fracture. Anterior osteophytes at C3-C4, C5-C6, C6-C7 and C7-T1. Multilevel degenerative disc disease without significant central spinal canal stenosis. IMPRESSION: 1. Atheromatous plaque at the origin of the right extracranial ICA with mild 41% stenosis by NASCET criteria. 2. Normal left extracranial internal carotid artery by NASCET criteria. 3. Hypoplastic right vertebral artery. 4. Widely patent, dominant left vertebral artery. 5. Anterior osteophyte that may in some cases cause dysphagia. REFERENCES: NASCET CRITERIA. The degree of stenosis in the cervical segment of the internal carotid artery is based on NASCET criteria. Normal is no stenosis. Mild is less than 50% stenosis. Moderate is 50-69% stenosis. Severe is 70% to 99% stenosis. Total occlusion is no detectable patent lumen. Dictated and Authenticated by: Isra Tillman MD. Orderin Angy George MD
== END 2025-05-07 07:58 | disposition home or self-care (01) ==
PROVIDERS: Emergency Provider Student in an Organized Health Care Education/Training Program; PCP Family Medicine
DX: R55 Syncope and collapse (principal); R09.A2 Foreign body sensation, throat
CPT/HCPCS: 70496; 70498; 80053; 93005; 96361; 96374; 99285; 71260; 81003; 81015; 84443; 84484; 85025; 85610; 85730; 93010; 99284; J2060; J3490

== ENCOUNTER 2025-05-11 14:46 | Outpatient (REF) | payer BC, SELFPAY | END 2025-05-11 14:47 | disposition home or self-care (01) | LOC: NCHCN 14:46 | PROVIDERS: PCP Family Medicine; Visit Provider Family Medicine | DX: J02.9 Acute pharyngitis, unspecified (principal) | CPT/HCPCS: 87070 ==

== ENCOUNTER 2025-05-11 15:01 | Outpatient (RCR) | payer BC, SELFPAY ==
--- NOTE | 2025-05-16 12:56 | W.HOLTRPT ---
Date of service: 05/16/25 Time of Service: 12:56 Holter Monitor Report Referring Provider:: Anna Mullen Indications:: Syncope Holter Monitor Note: This is a Holter monitor. Patient was monitored for 1 day and 2 hours Rhythm throughout was sinus with an average heart rate of 90. Minimum was 73, maximum 107 A total of 4 premature ventricular contractions were recorded There were 60 premature atrial contractions. There was no atrial fibrillation, no high-grade AV block, no pauses greater than 3 seconds. Reported symptoms had no correlation to any dysrhythmia
== END 2025-05-30 23:59 | disposition home or self-care (01) ==
LOC: CARDOPNVT 15:01
PROVIDERS: PCP Family Medicine; Referring Provider Student in an Organized Health Care Education/Training Program; Visit Provider Internal Medicine Cardiovascular Disease
DX: R55 Syncope and collapse (principal); I49.3 Ventricular premature depolarization; I49.1 Atrial premature depolarization
CPT/HCPCS: 93225; 93226

== ENCOUNTER 2025-06-19 09:50 | Outpatient (CLI) | payer BC, SELFPAY | END 2025-06-19 09:51 | disposition home or self-care (01) | PROVIDERS: PCP Family Medicine; Visit Provider Family Medicine | DX: R55 Syncope and collapse (principal) | CPT/HCPCS: 93270 ==

== ENCOUNTER 2025-07-20 08:15 | Outpatient (CLI) | payer BC, SELFPAY ==
--- NOTE | 2025-07-20 08:58 | W.CARDEVENT ---
Date of service: 07/20/25 Time of Service: 08:58 Cardiac Event Recorder Referring Provider:: Anna Mullen Indications:: Syncope Cardiac Event Note: This is a cardiac event monitor. Patient was monitored for 25 days and 4 hours Predominant rhythm was sinus. Average heart rate overall was 85. There was no bradycardia. Maximum heart rate was 105 There were no significant ventricular dysrhythmias. The strip labeled ventricular tachycardia was sinus with artifact There were very rare isolated atrial premature beats There was no atrial fibrillation, no high-grade AV block, no pauses greater than 3 seconds Symptoms were reported. These all correlated to sinus rhythm with heart rates ranging from 83-1 04
== END 2025-07-20 08:16 | disposition home or self-care (01) ==
LOC: CARDOPNVT 08:15
PROVIDERS: PCP Family Medicine; Visit Provider Internal Medicine Cardiovascular Disease
DX: R55 Syncope and collapse (principal)

== ENCOUNTER 2025-08-04 02:35 | Outpatient (CLI) | payer BC, SELFPAY ==
--- NOTE | 2025-08-08 08:07 | W.PFT ---
Date of service: 08/04/25 Time of Service: 10:01 Pulmonary Function Test Result Indications: Dyspnea Impression 1. Maximal inspiratory pressure was normal at -119 cmH2O 2. Maximal expiratory pressure was reduced at 107 cmH2O
== END 2025-08-04 02:36 | disposition home or self-care (01) ==
LOC: RT 02:36
PROVIDERS: PCP Family Medicine; Visit Provider Internal Medicine Pulmonary Disease

== ENCOUNTER 2025-08-06 14:24 | Emergency (ER) | payer BC, SELFPAY ==
[2025-08-06] VITALS (30 sets, daily range): BP systolic 131–175; BP diastolic 76–126; PULSE 90–115; RESP 15–25; TEMP 36.8–37; O2SAT 94–100
--- NOTE | 2025-08-06 15:00 | RT.EKG_ITS ---
APPROVED REPORT Exam: Resting ECG Reason for Exam: abd pain, N/V Patient Location: E HR:96 bpm ECG Measurements Heart Rate 96 AXIS CA 158 P 87 QRSd 81 QRS 93 QT 333 T 61 QTc 422 Conclusion Sinus rhythm, rate 96 No interval abnormalities No STEMI, upslanting ST segment with <1mm ST [place] diffuse leads No significant changes from prior
--- NOTE | 2025-08-06 15:00 | DI.CT_ITS ---
Exam(s) CT ABDOMEN PELVIS W EXAM: CT ABDOMEN PELVIS W CLINICAL HISTORY: abd bloating, N/V, hx pancreas Tx. TECHNIQUE: Imaging Protocol: Axial computed tomography images with coronal and sagittal reformatted images were created and reviewed CONTRAST MATERIAL: Intravenous: Omnipaque-350 100cc Oral: None COMPARISON: CT CT THORACIC LUMBAR SPINE REC from 02/14/[address] CHEST/ABD/PEL W from 02/14/2024 FINDINGS: VISUALIZED LUNG BASES: No nodules nor pleural effusions evident. ABDOMEN: GI: The stomach is distended. There are multiple fluid filled dilated (up to 4.4 cm) small bowel loops throughout the abdomen and pelvis with a subtle transition point in the distal small bowel in the right iliac fossa, these findings consistent with distal small bowel obstruction. The colon is not c ollapsed. LIVER: There are no focal hepatic lesions evident. No dilated intrahepatic ducts. GALLBLADDER/BILIARY: No obvious gallbladder pathology. CBD is not dilated. PANCREAS: Pancreas is again noted to be diminutive. There is no dilatation of the pancreatic duct. Is a single tiny calcification in the pancreatic head. SPLEEN: Spleen is not enlarged. No obvious intrasplenic lesions. Splenic and portal veins are patent. ADRENALS: There are no significant adrenal masses. KIDNEYS:No cysts evident. No solid renal masses. No calculi nor hydronephrosis.. ABDOMINAL AORTA: Abdominal aorta is not enlarged. LYMPH NODES:There is no retroperitoneal nor paraaortic adenopathy. ABDOMINAL WALL: No evidence of significant anterior abdominal wall nor inguinal hernia. PELVIS: GI: The appendix is not identified. No obvious secondary signs of acute appendicitis. The colon is not collapsed. There is abundant fecal material in the rectum and rectosigmoid. Rectum diameter is 6.8 cm. LYMPH NODES: There is no intrapelvic nor inguinal adenopathy. REPRODUCTIVE: Prostate gland is not enlarged. Seminal vesicles appear unremarkable. URINARY BLADDER: Collapsed. OSSEOUS: No fractures and no significant osseous lesions. Chronic multilevel degenerative disc disease. No acute fractures. No listhesis. No ominous osseous lesions. IMPRESSION: 1. There are multiple dilated fluid-filled small bowel loops in the abdomen and pelvis consistent with distal small bowel obstruction. The colon is not collapsed at this time. There is no ascites, free air, nor abscess. 2. Somewhat diminutive pancreatitis again noted. Report called by myself to ER 08/06/2025 at 4:30 p.m. RADIATION DOSE DELIVERED: 604.07mGy.cm Total DLP DATA REPOSITORY: All CT scans at this facility are submitted to the National Radiology Data Registry (NRDR) Dose Index Registry (DIR) with the [employer] ([employer]). RADIATION OPTIMIZATION: All CT scans at this facility use at least one of these dose optimization techniques: automated exposure control; mA and/or kV adjustment per patient size (includes targeted exams where dose is matched to clinical indication); or iterative reconstruction.
--- NOTE | 2025-08-06 15:10 | W.ED.GENAD ---
Discharge Plan Disposition Patient Disposition: Transfer-Acute Inpatient Care Specific Acute Inpt Facility: Other Condition: Fair Discharge Details Clinical Impression: SBO (small bowel obstruction), Pancreas transplant status Primary Care Provider: Anna Mullen V ED Provider: Maranda Brown Home Meds and New Rx's Prescriptions: No Action meclizine 25 mg tablet 25 mg PO TID PRN nitroglycerin [Nitrostat] 0.4 mg tablet, sublingual 0.4 mg SL Q5M PRN verapamil 120 mg tablet extended release 180 mg PO DAILY budesonide-formoterol [Breyna] 80-4.5 mcg/actuation HFA aerosol inhaler 2 puff inhalation BID Qty: 10.2 6RF valacyclovir 1 gram tablet 2,000 mg PO PRN PRN Patient Comments: not taking but have available if needed. polyethylene glycol 3350 [Miralax] 17 gram/dose powder 17 gm PO PRN PRN omega-3 fatty acids [Fish Oil Concentrate] 1,000 mg capsule 1,000 mg PO DAILY mupirocin 2 % ointment 1 applic topical TID Qty: 22 0RF Rx Instructions: inside both nostrils multivitamin [Daily Multi-Vitamin] 1 EACH tablet 1 ea PO DAILY levothyroxine 175 MCG tablet 137 mcg PO DAILY magnesium gluconate 27 MG tablet 27 mg PO DAILY venlafaxine 150 MG tablet extended release 24hr 225 mg PO DAILY mycophenolate mofetil [CellCept] 250 mg capsule 250 mg PO 2 CAPS BID albuterol sulfate [ProAir HFA] 90 mcg/actuation HFA aerosol inhaler 2 puff inhalation 6XD cholecalciferol (vitamin D3) 125 mcg (5,000 unit) capsule 125 mcg PO DAILY Rx Instructions: reports he is taking 10,000 IU [id number]. 09/15/22 tacrolimus [Prograf] 1 mg capsule 1 mg PO DAILY atorvastatin [Lipitor] 20 mg tablet 20 mg PO HS baclofen 10 mg tablet 10 mg PO QHS budesonide 32 mcg/actuation spray,non-aerosol 2 spray intranasal DAILY Rx Instructions: administer into each nostril pantoprazole 40 MG tablet,delayed release (DR/EC) 40 mg PO BID ondansetron 4 MG tablet,disintegrating 4 mg PO Q6H PRN PRN (Reason: Nausea / Vomiting) Qty: 20 0RF acetaminophen [Tylenol Extra Strength] 500 mg Tablet 1,000 mg PO Q6H PRN tacrolimus [Prograf] 0.5 mg capsule 0.5 mg PO DAILY cyclobenzaprine 5 mg tablet 5 mg PO TID PRNQty: 10 0RF cetirizine [24Hour Allergy] 10 mg tablet 10 mg PO ONCE clopidogrel [Plavix] 75 mg Tablet 75 mg PO HS losartan 100 mg tablet 1 tab PO DAILY HPI General Mode of arrival: ambulatory. Date/Time Provider Initiated Documentation: 08/06/25 14:48. Limitations to Documentation: no limitations. Information obtained by: patient, family and old records reviewed. HPI Narrative: This is a 59-year-old male patient with a history of type 1 diabetes, numerous CVAs, status post pancreatic transplant in 2012, with a history of globus sensation and dysphagia as well as tardive dyskinesia, who is presenting for evaluation of abdominal bloating and nausea with vomiting. The patient symptoms started last night and have worsened over the course of today. He has had nausea with nonbloody emesis, denies diarrhea and has passed stool this morning. He does not have any specific abdominal pain but feels quite bloated. His discomfort does not radiate, he has been able to take his medications today but has otherwise had decreased p.o. intake. Endorses a history of PTSD and anxiety and feels quite apprehensive when he has sensations of not being able to breathe, laying supine, or if he is in enclosed spaces. Related Data Home Medications ?Medication ?Instructions ?Recorded ?Confirmed levothyroxine 175 mcg tablet 137 mcg PO DAILY 08/21/14 08/06/25 multivitamin (Daily Multi-Vitamin 1 ea PO DAILY 08/21/14 08/06/25 tablet) magnesium gluconate 27 mg 27 mg PO DAILY 10/12/14 08/06/25 magnesium (500 mg) tablet pantoprazole 40 mg tablet,delayed 40 mg PO BID 05/15/16 08/06/25 release venlafaxine 150 mg tablet,extended 225 mg PO DAILY 07/22/17 08/06/25 release 24 hr ondansetron 4 mg disintegrating 4 mg PO Q6H PRN PRN Nausea / 10/12/17 08/06/25 tablet Vomiting ##20 omega-3 fatty acids 1,000 mg 1,000 mg PO DAILY 10/18/18 08/06/25 capsule (Fish Oil Concentrate) polyethylene glycol 3350 17 17 gm PO PRN PRN 10/18/18 08/06/25 gram/dose oral powder (Miralax) valacyclovir 1 gram tablet 2,000 mg PO PRN PRN 10/18/18 08/06/25 meclizine 25 mg tablet 25 mg PO TID PRN 03/29/19 08/06/25 mycophenolate mofetil 250 mg 250 mg PO 2 CAPS BID 03/29/19 08/06/25 capsule (CellCept) nitroglycerin 0.4 mg sublingual 0.4 mg sublingual Q5M PRN 03/29/19 08/06/25 tablet (Nitrostat) clopidogrel 75 mg tablet (Plavix) 75 mg PO HS 08/08/19 08/06/25 acetaminophen 500 mg tablet 1,000 mg PO Q6H PRN 02/08/20 08/06/25 (Tylenol Extra Strength) albuterol sulfate 90 mcg/actuation 2 puff inhalation 6XD 04/25/21 08/06/25 aerosol inhaler (ProAir HFA) losartan 100 mg tablet 1 tab PO DAILY 03/05/22 08/06/25 cholecalciferol (vitamin D3) 125 125 mcg PO DAILY 09/15/22 08/06/25 mcg (5,000 unit) capsule tacrolimus 1 mg capsule, 1 mg PO DAILY 09/15/22 08/06/25 immediate-release (Prograf) verapamil 120 mg tablet,extended 180 mg PO DAILY 09/15/22 08/06/25 release cyclobenzaprine 5 mg tablet 5 mg PO TID PRN #10 tabs 02/14/24 08/06/25 tacrolimus 0.5 mg capsule, 0.5 mg PO DAILY 02/14/24 08/06/25 immediate-release (Prograf) atorvastatin 20 mg tablet (Lipitor) 20 mg PO HS 11/22/24 08/06/25 baclofen 10 mg tablet 10 mg PO QHS 11/22/24 08/06/25 budesonide 32 mcg/actuation nasal 2 spray intranasal DAILY 11/22/24 08/06/25 spray mupirocin 2 % topical ointment 1 applic topical TID #22 grams 12/13/24 08/06/25 cetirizine 10 mg tablet (24Hour 10 mg PO ONCE 05/07/25 08/06/25 Allergy) budesonide-formoterol HFA 80 2 puff inhalation BID #10.2 grams 08/03/25 08/06/25 mcg-4.5 mcg/actuation aerosol inhaler (Breyna) Previous Rx's ?Medication ?Instructions ?Recorded ondansetron 4 mg disintegrating 4 mg PO Q6H PRN PRN Nausea / 10/12/17 tablet Vomiting ##20 cyclobenzaprine 5 mg tablet 5 mg PO TID PRN #10 tabs 02/14/24 mupirocin 2 % topical ointment 1 applic topical TID #22 grams 12/13/24 budesonide-formoterol HFA 80 2 puff inhalation BID #10.2 grams 08/03/25 mcg-4.5 mcg/actuation aerosol inhaler (Breyna) Allergies Allergy/AdvReac Type Severity Reaction Status Date / Time metoclopramide HCl (From Allergy Intermediate TARDIIVE Verified 08/06/25 14:48 Reglan) DYSKINESIA oxycodone HCl (From Percocet) Allergy Intermediate Other (See Verified 08/06/25 14:48 Comment) simvastatin (From Zocor) Allergy Intermediate MYOCLONUS Verified 08/06/25 14:48 esomeprazole magnesium (From AdvReac Diarrhea Verified 08/06/25 14:48 Nexium) lisinopril AdvReac Reaction Verified 08/06/25 14:48 to Maxdose DIMOTROPE Allergy Mild Hives Uncoded 08/06/25 14:48 ORNADE DIMOTROPE Allergy Unknown Hives Uncoded 08/06/25 14:48 General Stated Complaint: Abd Prob ROBIN: 3 Exam Narrative Exam Narrative: Gen: Awake and alert, in no apparent distress HEENT: Non-icteric sclera Neck: Supple Lungs: No apparent respiratory distress, normal respiratory effort. Lung sounds clear and equal bilaterally without wheezes, rhonchi, rales CV: Appears well perfused, heart with regular rate and rhythm, strong distal pulses Abdomen: Non-distended, soft, nontender to palpation without rigidity, rebound, or guarding. MSK: Moves 4 extremities without apparent limitation in ROM. No peripheral edema Skin: Visualized skin without rashes, cyanosis. Neuro: Normal Gait, no obvious focal deficits or facial asymmetry. Speaks in full, clear sentences. Psych: Appropriate for situation. Course Vital Signs Vital signs: Vital Signs Temperature 37.0 C 08/06/25 14:41 Pulse 104 H 08/06/25 14:41 Respiratory Rate 20 08/06/25 14:41 Blood Pressure 145/89 H 08/06/25 14:41 Pulse Oximetry 98 08/06/25 14:41 Temperature 37.0 C 08/06/25 15:05 Temperature Source Oral 08/06/25 15:05 Pulse 103 H 08/06/25 15:05 Respiratory Rate 17 08/06/25 15:05 Blood Pressure 158/92 H 08/06/25 15:05 Blood Pressure Position Sitting 08/06/25 15:05 Pulse Oximetry 98 08/06/25 15:05 Oxygen Delivery Method Room Air 08/06/25 15:05 Oxygen Flow Rate 0 08/06/25 15:05 Pain Level 8 08/06/25 15:05 Medical Decision Making This is a 59-year-old male patient presenting for evaluation of abdominal bloating with nausea and vomiting. My differential includes, but is not limited to, gastritis/PUD, gastroenteritis, pancreatitis, cholecystitis and gallbladder pathology, hepatitis, diverticulitis, small bowel obstruction, especially considering the patient's robust surgical history. The patient is status post appendectomy. Considered urinary pathology including UTI, nephrolithiasis. Considered mesenteric ischemia, aortic pathology, though this is less concerning based on the patient's history and physical exam. Considered ACS and arrhythmia, metabolic electrolyte derangement, kidney and liver injury. The patient is taking his antirejection medications as prescribed and is unlikely to be experiencing acute transplant rejection. I will obtain an EKG, labs to include CBC, CMP, magnesium, troponin, urinalysis, lipase, and will obtain a CT abdomen pelvis. I will provide the patient with a liter of IV fluids, Zofran for his nausea and we will provide him with a dose of Ativan prior to CT for his anxiety and PTSD. - I reviewed the patient's laboratory studies, which show no significant leukocytosis, anemia or thrombocytopenia. Chemistry panel without electrolyte derangement, evidence of kidney dysfunction, patient does have a slight elevation in his bilirubin to 1.4 and alk phos to 176. Troponin is negative and without interval increase in 1 hour delta recheck, lipase is low. Urinalysis noninfectious and without hematuria. CT scan shows a distal small bowel obstruction with transition point in the pelvis, no evidence of perforation. An NG tube was placed and the patient did require another dose of Ativan as well as Dilaudid for pain and anxiety during this procedure. The patient had copious amounts of stomach contents evacuated under suction, and had significant improvement in his symptoms. Given his n.p.o. status, I did start him on maintenance fluids, 200 mL/h. Unfortunately, we are not able to provide the patient with his antirejection medications as we do not carry them in our pharmacy. I contacted numerous other hospitals to discuss transfer, and were unable to get these medications puller through to our facility. The patient was unable to be accepted at [facility] due to capacity. The patient was accepted ED to ED transfer at [place], given that he is already 6 hours past his last dose of rejection medications, his surgical and anatomical complexity, and because transport would be delayed until mid morning given the lack of [facility] capacity, I do feel that this warrants emergent transfer given the potential for organ failure in the absence of rejection medications, as well as the potential for intra-abdominal complications due to his obstruction. The patient was accepted by Dr. Newton at the [facility] for ED to ED transport. Remained hemodynamically appropriate while under my care and was transferred without incident. He did receive another dose of Ativan for anxiety regarding his transport prior to leaving, but was otherwise with improved pain and nausea at the time of departure. Maranda Brown MD [facility] All Active Problems (Updated 08/06/25 @ 23:37 by Maranda Brown MD) Pancreas transplant status (Acute) SBO (small bowel obstruction) (Acute) Strain of left wrist (Acute) Epistaxis (Acute) Nutritional disorder (Acute) Bunion (Acute) Abnormality of nail tissue (Acute) Normal colonoscopy (Acute) Vocal cord dysfunction (Acute) Ulnar neuropathy at elbow of right upper extremity (Acute 10/12/14) Femoroacetabular impingement of left hip (Acute) Subcutaneous mass of left lower extremity (Acute) Atopic dermatitis (Acute) Hernia, ventral (Acute) 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 (Acute) Migraine (Chronic) Vaccine contraindicated (Chronic) NO LIVE VACCINES Depression (Chronic) Vertigo (Acute) Acquired deformity of foot (Acute) Asthma, exercise induced (Acute) Vitamin D deficiency, unspecified (Acute) Erectile dysfunction (Acute) Bilateral radicular pain (Acute) lower legs Acquired inequality of length of feet (Acute) Scoliosis (Acute) Neuropathy (Acute) Nail dystrophy (Acute) Sleep apnea (Acute) Medical History History of CVA (cerebrovascular accident) age 11 with chronic left weakness and numbness; and in 2019 with left ataxia, dysarthria and dysphagia (resolved) Hypertension Hypothyroidism (acquired) RLS (restless legs syndrome) Left hemiparesis 2019 Major depression, single episode Acquired unequal limb length Mass of neck Lung field abnormal Hx of diabetic gastroparesis Lumbar radiculopathy Asthma Tardive dyskinesia (10/12/14) Weakness of left lower extremity Hernia History of diabetes mellitus, type I no longer after transplant Surgical History Back pain with history of spinal surgery History of colonoscopy (~03/2022) History of carpal tunnel release Right Trigger finger, right middle finger S/P release on 02/08/2020 History of shoulder surgery R shoulder History of esophagogastroduodenoscopy (EGD) History of colonoscopy 2014-pitting of colonic mucosa History of arthroscopic knee surgery Left History of appendectomy History of pancreas transplant 08/27/13 Family History Father COPD (chronic obstructive pulmonary disease) Mother Hypertension Status post heart valve replacement AGE 7 Migraine Parkinsons Brother Enlarged prostate no cancer Paternal Grandmother Coronary heart disease Other Heart disease Social History Smoking/Tobacco Use Status: Never Smoking risk assessment performed?: Yes Alcohol Intake: never Drug use: Never Substance use type: does not use Household members: family Housing: house Pets and animals: Yes Pets and animals: cat(s) and dog(s) Current gender identity: male What is your relationship status?: Panel score (0-1 are the most socially isolated patients): 1 Seatbelt use: always Do you feel safe at home: Yes Do you feel safe in your relationship?: Yes
[2025-08-06 15:25] LABS: Abs Immature Grans 0.04 10^3/uL (0.0-0.06); HCT 47.1 % (40.0-50.0); HGB 15.8 g/dL (13.5-17.5); Immature Grans % 0.3 %; MCH 29.8 pg (27.0-33.0); MCHC 33.5 % (32.0-36.0); MCV 89 fL (80-95); MPV 10.3 fL (8.0-11.0); Platelet Count 299 10^3/uL (130-400); RBC 5.31 10^6/uL (4.36-5.78); RDW 12.3 % (11.8-14.1); RDW-SD 40.0 fL; WBC 12.17 10^3/uL (4.4-10.8)
[2025-08-06] MEDS: LORazepam 2 MG/ML VIAL 1 MG IVP (15:33)
[2025-08-06] MEDS: Normal Saline Flush 10 ML SYR IVP ×2 (15:34→15:57)
[2025-08-06] MEDS: Ondansetron 4 MG/2 ML VIAL IVP (15:34)
[2025-08-06 15:41] LABS: Troponin I 4 ng/L (<54)
[2025-08-06] MEDS: Lactated Ringers 1,000 ML 1000 ML IV (15:42)
[2025-08-06 15:45] LABS: Lipase 33 U/L (<53); Magnesium 2.1 mg/dL (1.6-2.6)
[2025-08-06 15:46] LABS: ALT 28 U/L (10-49); AST 28 U/L (<34); Albumin 5.0 g/dL (3.2-5.0); Alkaline Phosphatase 176 U/L (46-116); Anion Gap 11.8 mmol/L (3-11); BUN 21 mg/dL (9-23); Bilirubin, Total 1.40 mg/dL (0.2-1.2); CO2 26.2 mmol/L (20.0-31.0); Calcium 10.1 mg/dL (8.3-10.6); Chloride 101 mmol/L (98-107); Glucose 119 mg/dL (74-106); Potassium 4.5 mmol/L (3.5-5.1); Sodium 139 mmol/L (136-145); Total Protein 8.3 g/dL (5.7-8.2)
[2025-08-06 15:56] LABS: Glucose Negative (Negative)
[2025-08-06] MEDS: Normal Saline - Diluent 50 ML VIAL IJ (15:56)
[2025-08-06] MEDS: Omnipaque 350 MG/ML 100 ML BTL IJ (15:56)
[2025-08-06 16:08] LABS: C & S Indicated? No; RBC 0-2 HPF (0-2); WBC 0-2 HPF (0-5)
[2025-08-06 16:38] LABS: Troponin I 4 ng/L (<54)
[2025-08-06] MEDS: LORazepam 2 MG/ML VIAL 0.5 MG IVP (20:40)
[2025-08-06] MEDS: Lactated Ringers 1,000 ML 200 ML IV (20:45)
[2025-08-06] MEDS: HYDROmorphone 2 MG/ML SYR 0.5 MG IVP (20:45)
--- NOTE | 2025-08-06 23:38 | NUR.NOTE ---
Nursing Note:Pt's , Tiffani Dial, was called and notified that [facility] has accepted the transfer of her . She asked where it is located, I told her 3[place]5-4hrs away in [place]. She expressed understanding and gratitude. Her number is [phone]
== END 2025-08-07 00:20 | disposition short-term general hospital (02) ==
PROVIDERS: Emergency Provider Emergency Medicine; PCP Family Medicine
DX: K56.609 Unspecified intestinal obstruction, unspecified as to partial versus complete obstruction (principal); Z94.83 Pancreas transplant status
CPT/HCPCS: 99285 ×2; 36415; 96374; 96375; 80053; 83690; 93005; 96361; 74177; 81003; 81015; 83735; 84484; 85025; 93010; J1171; J2060; J2405; J3490